=== PATIENT | female | born 1995 | race Caucasian/White ===

== ENCOUNTER 2018-03-29 15:38 | Emergency (ER) | payer MEDICAID, SELFPAY ==
[2018-03-29 15:38] VITALS: BP 129/72; PULSE 71; RESP 18; TEMP 36.7; O2SAT 96; BMI 41.5
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
--- NOTE | 2018-03-29 15:59 | ED.DCSUM_ITS ---
- ER Visit Summary Date of Service: 03/29/18 Chief Complaint: Right arm injury History of Present Illness: The patient is a 22 F presents to the emergency department with right arm injury. Patient was mowing her grass. She lost her balance and fell. She struck the dorsum of her arm against the sidewalk. She did not hit her head. She denies loss of consciousness. She denies any burning pain on the dorsum of her arm. She has not taken anything for it. Physical Examination: Is relatively unremarkable. Tenderness on the dorsum of her forearm. Her pulses are normal. Flexion and extension are preserved. Neurologically she is intact. Test Results: [] Emergency Department Course and Treatment: The patient symptoms were more consistent with sprain. There was no gross laxity. Her pulses are normal. I did obtain plain films which are unremarkable. The patient was offered Naprosyn which she refused. She states this will make me believe. I tried to explain her that this is more of a cumulative effect from chronic NSAID therapy. Offered Tylenol but she said that will not even work. The patient will be discharged and continue ice and elevation. Treatment Plan: [] Disposition: Discharge Impression: 1. Right forearm sprain This note was generated with [employer] dictation software. It may contain incorrect words, spelling, and punctuation that were not noted in review of the chart prior to signing ED Disposition - Plan for ED Patient: Disposition: Home or Assisted Living Chief Complaint: Upper Extremity Injury Instructions: ED Sprain Wrist Referrals: Wallace Kidd,Nay Bull [Primary Care Provider] -
== END 2018-03-29 16:23 | disposition home or self-care (01) ==
LOC: ED 16:05
PROVIDERS: Emergency Provider Emergency Medicine
DX: S56.911A Strain of unspecified muscles, fascia and tendons at forearm level, right arm, initial encounter (principal); W19.XXXA Unspecified fall, initial encounter; Y93.9 Activity, unspecified; Y92.9 Unspecified place or not applicable; F32.9 Major depressive disorder, single episode, unspecified; Z79.899 Other long term (current) drug therapy
CPT/HCPCS: 73090; 73130; 99282

== ENCOUNTER 2018-05-10 13:49 | Emergency (ER) | payer MEDICAID, SELFPAY ==
[2018-05-10 13:50] VITALS: BP 135/84; PULSE 96; RESP 18; TEMP 36.3; O2SAT 97; BMI 44.2
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
--- NOTE | 2018-05-10 14:20 | ED.DEP ---
ED Disposition - Plan for ED Patient: Chief Complaint: Other, Pain/Inj Instructions: ED Neck Pain No Trauma Prescriptions: Hydrocodone/Acetaminophen [Reynolds 5-325 Tablet] 1 - 2 ea PO 4X/DAY PRN PRN 3 Days #12 tab PRN Reason: Pain Naproxen [Naprosyn] 500 mg PO BID PRN #20 tab Cyclobenzaprine [Flexeril] 10 mg PO TID PRN #20 tab PRN Reason: Muscle Spasm Referrals: [facility] Bernabe,Nay Bull [Primary Care Provider] - Varun Rodas MD [STAFF PHYSICIAN] - 3-5 Days
--- NOTE | 2018-05-10 14:23 | DCINST.ED_ITS ---
ED Disposition - Plan for ED Patient: Chief Complaint: Other, Pain/Inj Instructions: ED Neck Pain No Trauma Prescriptions: Hydrocodone/Acetaminophen [[place] 5-325 Tablet] 1 - 2 ea PO 4X/DAY PRN PRN 3 Days #12 tab PRN Reason: Pain Naproxen [Naprosyn] 500 mg PO BID PRN #20 tab Cyclobenzaprine [Flexeril] 10 mg PO TID PRN #20 tab PRN Reason: Muscle Spasm Referrals: [facility] Bernabe,Nay Bull [Primary Care Provider] - Varun Rodas MD [STAFF PHYSICIAN] - 3-5 Days
== END 2018-05-10 14:33 | disposition home or self-care (01) ==
PROVIDERS: Emergency Provider Emergency Medicine
DX: M54.2 Cervicalgia (principal); G89.29 Other chronic pain; Z72.0 Tobacco use
CPT/HCPCS: 99282

== ENCOUNTER → 2018-05-18 12:03 | Outpatient (CLI) | payer MEDICAID, SELFPAY ==
--- NOTE | 2018-05-18 12:10 | RAD_ITS ---
STUDY: X-RAY - CERVICAL SPINE REASON FOR EXAM: Female, 23 years old. Pain. TECHNIQUE: 5 view(s) of the cervical spine were obtained. COMPARISON: None FINDINGS: Normal anterior atlantoaxial articulation. Normal odontoid process. Normal cervical lordosis. Normal vertebral bodies and endplates. Normal disc space heights. Normal visualized intervertebral neuroforamina. The soft tissue structures are unremarkable. There is no demonstrated fracture of the cervical spine. RAD/Cerv Spine 4 or 5 Views IMPRESSION: Normal x-ray examination of the visualized cervical spine. Electronically Signed: Nj Bernal MD at 15:58 EDT , Service support ,
== END ==
DX: M54.2 Cervicalgia (principal)
CPT/HCPCS: 72050

== ENCOUNTER 2018-07-27 23:03 | Emergency (ER) | payer MEDICAID, SELFPAY ==
[2018-07-27 23:04] VITALS: BP 134/70; PULSE 94; RESP 15; TEMP 37.1; O2SAT 97; BMI 41.6
--- NOTE | 2018-07-27 23:41 | ED.VISSUMM ---
- ER Visit Summary Date of Service: 07/27/18 Chief Complaint: [Cough and chest discomfort] History of Present Illness: The patient is a 23 F [presents with a cough that started 4 days ago. Patient also started with chest discomfort 2 days ago. She describes a sharp pain in her center of her chest intermittently. Patient states that pain at times worse with cough and at times with laying flat. Patient had fever at home up to 102. Cough is been relatively nonproductive. She complains of body aches and occasional headache. Patient has had some sick contacts with similar symptoms that have resolved quicker than hers are resolving.] Physical Examination: [HEENT-PERRLA, EOMI. Cranial nerves II through XII grossly intact. TMs clear. Mucous membranes moist. No adenopathy. Cardiovascular-regular rate and rhythm without murmur or ectopy Lungs-clear to auscultation, chest wall stable without crepitus or subcu emphysema. Mild chest wall tenderness on exam that partially reproduces her pain. Abdomen-normoactive bowel sounds, soft, nontender, no rebound or rigidity, no peritoneal signs. Extremities-intact ?4, normal range of motion, normal pulses, atraumatic] Test Results: None indicated [] Emergency Department Course and Treatment: [Patient was started on doxycycline and Tessalon Perles] Treatment Plan: [Follow-up with primary care physician 3-5 days.] Disposition: [Discharged home stable condition] Impression: [Bronchitis Chest wall pain] This note was generated with [employer] dictation software. It may contain incorrect words, spelling, and punctuation that were not noted in review of the chart prior to signing ED Disposition - Plan for ED Patient: Chief Complaint: Cough Referrals: Nay Roldan [Primary Care Provider] -
--- NOTE | 2018-07-27 23:43 | ED.DEP ---
ED Disposition - Plan for ED Patient: Chief Complaint: Cough Instructions: ED Upper Resp Infec Abx Tx, ED Chest Pain Costochondritis Prescriptions: Benzonatate [Tessalon Perle] 200 mg PO TID PRN PRN #20 cap PRN Reason: Cough Doxycycline Monohydrate 100 mg PO BID #20 cap Referrals: [facility] Bernabe,Nay Bull [Primary Care Provider] - 3-5 Days
[2018-07-27] MEDS: Benzonatate 100 MG Capsule 200 MG PO (23:53)
[2018-07-27] MEDS: Doxycycline 100 MG CAPSULE PO (23:53)
[2018-07-27 23:57] VITALS: PULSE 85; RESP 14; O2SAT 97; O2SAT 98
--- NOTE | 2018-07-28 10:44 | CM.ED ---
ED CALLBACK: Follow-up call placed to patient. Patient states she feels about the same as yesterday. She denies worsening symptoms. Patient states she had a temp of 100.0 around 0300 today. She states she has not filled her prescription yet, but is having her boyfriend fill it today. I encouraged patient to start antibiotic as soon as possible and that this can take a few days to see improvement. Encouraged patient to schedule an appointment with Nay Kidd for follow-up. Offered assistance and patient declines. She denies any needs or questions at this time.
== END 2018-07-28 00:08 | disposition home or self-care (01) ==
LOC: ED 07-28 00:04
PROVIDERS: Emergency Provider Emergency Medicine
DX: J40 Bronchitis, not specified as acute or chronic (principal); R07.89 Other chest pain; Z72.0 Tobacco use
CPT/HCPCS: 99283

== ENCOUNTER 2018-08-19 15:30 | Outpatient (RCR) | payer MEDICAID, SELFPAY ==
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
--- NOTE | 2018-11-24 08:42 | HP.PTDCSUM ---
HP - PT D/C Summary It has been my pleasure to treat CARLOS DOMINGUEZ under orders from ERICA aDigle, for the diagnosis of CERVICAL PAIN for a total of 7 visit(s). Discharge Date: Please see the following information for a summary of their discharge status. - Subjective Subjective: Pain is about the same. Plan to RTD - Pain Bilateral Neck Pain Intensity (Out of 10): 4 - Overall Improvement % Improvement: 50 - Objective Objective/Function: Sajan txwell. AROM : min loss all planes. PALPATION:tenderness tightness left UT/levator. MMT: BUE 4/5 ,4-/5 - Goals Goal 1:: Independant with HEP Goal 2:: Independant with posture for ADL'S Goal 3:: Decrease cervical pain by 50% or greater to improve function Goal 4:: Patient improve cervical ROM for functrion of recovery Goal 5:: Patient be able to perform ADLS with min limiations - Plan Plan: RTD - D/C Information If there are questions or concerns regarding this patient's physical therapy, please feel free to call me at [phone]. Thank you for the referral of this patient. Sincerely, Magnus Zhou, PT, Cert MDT, OCS
== END 2018-08-19 19:00 | disposition home or self-care (01) ==
LOC: PT 15:30
PROVIDERS: Referring Provider Nurse Practitioner Family; Visit Provider Nurse Practitioner Family
DX: M54.2 Cervicalgia (principal)
CPT/HCPCS: 97035; 97110; 97140; 97161

== ENCOUNTER 2018-09-10 10:50 | Emergency (ER) | payer MEDICAID, SELFPAY ==
[2018-09-10 10:51] VITALS: BP 132/78; PULSE 88; RESP 16; TEMP 36.5; O2SAT 97; BMI 42.9
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
--- NOTE | 2018-09-10 11:20 | ED.RN ---
DISCHARGE INSTRUCTIONS GIVEN TO AND REVIEWED WITH PATIENT, PATIENT DENIES QUESTIONS OR CONCERNS AND VOICES UNDERSTANDING OF DISCHARGE INSTRUCTIONS. PT AMBULATES OUT OF ROOM WITHOUT DIFFICULTY.
--- OUTSIDE RECORDS SUMMARY | 2018-11-05 09:11 | XMS RPT_ITS ---
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 Impression: [] URI with harsh cough This note was generated with KartRocket dictation software. It may contain incorrect words, spelling, and punctuation that were not noted in review of the chart prior to signing ED Disposition - Plan for ED Patient: Chief Complaint: Chest Pain Referrals: Roverto Diane MD [Primary Care Provider] - What to do if you have Problems For any increased pain, shortness of breath, bleeding, nausea or vomiting, chest pain, or any unexpected problems, contact your Primary Care Provider. Call [facility] ([phone]) or report to the closest Emergency Room. Call 911 if necessary. 10/18/17 3231 <Electronically signed by Davian Connolly MD> Date Davian Connolly MD Cosigner Signature (If Indicated): Date CC: Roverto Diane MD DISCHARGE INSTRUCTION Observed: 10/18/2017 Status: F Source: LEYDA 11:47 AM [facility] REPOSITORY [facility] Medical Records Department [address] [place] [address] Discharge Instruction 10/18/17 1146 MR#: [id number] Acct: [id number] Name: CARLOS ALSTON Rep #: [id number] : 1995 22 From: Davian Connolly MD PCP: Roverto Diane MD Status: REG ER ED Disposition - Plan for ED Patient: Chief Complaint: Chest Pain Instructions: ED Upper Resp Infec No Abx Tx Prescriptions: Albuterol Inhaler [Ventolin Hfa] 1 - 2 puff INHALATION Q4H PRN PRN #1 inhaler PRN Reason: Wheezing Naproxen [Naprosyn] 500 mg PO BID PRN #20 tab Guaifenesin/Pseudoephedrne HCl [Mucinex D ER 1,200-120 mg Tab] 1 ea PO BID #20 tab.er.12h Referrals: Roverto Diane MD [Primary Care Provider] - What to do if you have Problems For any increased pain, shortness of breath, bleeding, nausea or vomiting, chest pain, or any unexpected problems, contact your Primary Care Provider. Call [facility] ([phone]) or report to the closest Emergency Room. Call 911 if necessary. 10/18/17 1147 <Electronically signed by Davian Connolly MD> Date Davian Connolly MD Cosigner Signature (If Indicated): Date CC: Roverto Diane MD DISCHARGE INSTRUCTION Observed: 10/18/2017 Status: F Source: LEYDA 11:19 AM [facility] REPOSITORY [facility] Medical Records Department [address] [place] [address] Discharge Instruction 10/18/17 1116 MR#: [id number] Acct: [id number] Name: CARLOS ALSTON Rep #: [id number] : 1995 22 From: Davian Connolly MD PCP: Roverto Diane MD Status: REG ER ED Disposition - Plan for ED Patient: Chief Complaint: Chest Pain Instructions: ED Upper Resp Infec No Abx Tx Prescriptions: Albuterol Inhaler [Ventolin Hfa] 1 - 2 puff INHALATION Q4H PRN PRN #1 inhaler PRN Reason: Wheezing Naproxen [Naprosyn] 500 mg PO BID PRN #20 tab Guaifenesin/Pseudoephedrne HCl [Mucinex D ER 1,200-120 mg Tab] 1 ea PO BID #20 tab.er.12h Referrals: Roverto Diane MD [Primary Care Provider] - What to do if you have Problems For any increased pain, shortness of breath, bleeding, nausea or vomiting, chest pain, or any unexpected problems, contact your Primary Care Provider. Call [facility] ([phone]) or report to the closest Emergency Room. Call 911 if necessary. 10/18/17 1119 <Electronically signed by Davian Connolly MD> Date Davian Connolly MD Cosigner Signature (If Indicated): Date CC: Roverto Diane MD PROGRESS Observed: 10/18/2017 Status: COMPLETED Source: SHENANDO[place] 10:36 AM [facility] [place] REPOSITORY O ID: [id number] Author: Lance Santos Service: (none) Author Type: Nurse Practitioner Type: Progress Notes Filed: 10/18/2017 10:41 AM Note Text: Patient is a 22 year old female presenting with flu symptoms. The history is provided by the patient (dry cough for the last 4 days, but yesterday developed midsternal non-radiating chest pain ). Flu Like Symptoms This is a new problem. Associated symptoms include chest pain, congestion and coughing. Pertinent negatives include no fever. She has tried nothing for the symptoms. Review of Systems Constitutional: Negative for fever. HENT: Positive for congestion. Respiratory: Positive for cough. Negative for sputum production. Cardiovascular: Positive for chest pain and palpitations. Physical Exam Constitutional: She is oriented to person, place, and time and well-developed, well-nourished, and in no distress. Vital signs are normal. BP 100/70 Pulse 107 Temp 37.8 ?C (100.1 ?F) (Tympanic) Resp 20 Wt 108 kg (238 lb) LMP 08/10/2017 SpO2 96% BMI 42.16 kg/m2 Cardiovascular: Normal heart sounds. Pulmonary/Chest: Breath sounds normal. Neurological: She is oriented to person, place, and time. pt was advised to go to the ed for cardiac workup that can not be completed in this setting , family member that is With the pt at this time states that he will drive her. REED Observed: 10/18/2017 Status: COMPLETED Source: SHENANDOAH 10:15 AM [facility] REPOSITORY Office Visit (WSTR) CARLOS ALSTON ([id number]) 1995 F Date Time Provider Department 10/18/17 10:15 AM [facility] During your visit today, we recorded the following information about you: Temperature Pulse Respiration Blood pressure 100.1 degrees 107/minute 20/minute 100/70 Weight Last Period 108 kg 08/10/17 Lance Santos CNP 10/18/2017 10:41 AM Signed Patient is a 22 year old female presenting with flu symptoms. The history is provided by the patient (dry cough for the last 4 days, but yesterday developed midsternal non-radiating chest pain ). Flu Like Symptoms This is a new problem. Associated symptoms include chest pain, congestion and coughing. Pertinent negatives include no fever. She has tried nothing for the symptoms. Review of Systems Constitutional: Negative for fever. HENT: Positive for congestion. Respiratory: Positive for cough. Negative for sputum production. Cardiovascular: Positive for chest pain and palpitations. Physical Exam Constitutional: She is oriented to person, place, and time and well-developed, well-nourished, and in no distress. Vital signs are normal. BP 100/70 Pulse 107 Temp 37.8 ?C (100.1 ?F) (Tympanic) Resp 20 Wt 108 kg (238 lb) LMP 08/10/2017 SpO2 96% BMI 42.16 kg/m2 Cardiovascular: Normal heart sounds. Pulmonary/Chest: Breath sounds normal. Neurological: She is oriented to person, place, and time. pt was advised to go to the ed for cardiac workup that can not be completed in this setting , family member that is With the pt at this time states that he will drive her. Referring Provider: SELF [200] Allergies As of Date: 10/18/2017 Noted Allergy Reaction MORPHINE 03/23/2017 14 - Other: See Comments Comments: Tightness in chest TREE NUT 10/26/2015 12 - Shortness of Breath Date Reviewed: 10/18/2017 Reviewed by: Ragini Boyce LPN - Fully Assessed Reason for Visit: Flu Like Symptoms [267] Cmt: cough/congestion/vomiting X 2 day Primary Visit Diagnosis:Other chest pain [R07.89] Other Visit Diagnosis:Cough [R05] Prescriptions as of 10/18/2017 Sig: DICYCLOMINE 10 MG CAPSULE OMEPRAZOLE MAGNESIUM 20 MG TA* Take 1 tablet by mouth once d* CETIRIZINE 10 MG TABLET Take 1 tablet by mouth once d* FLUTICASONE 50 MCG/ACTUATION * Use 2 Sprays in each nostril * ALBUTEROL SULFATE HFA 90 MCG/* Inhale 2 Puffs as instructed * NYSTATIN 100,000 UNIT/GRAM TO* Apply 1 application to affect* SERTRALINE 50 MG TABLET Medication notes this encounter OMEPRAZOLE MAGNESIUM 20 MG TABLET,DELAYED RELEASE >> Ragini Boyce LPN 10/18/2017 10:23 AM >> RAGINI BOYCE LPN Oct 18, 2017 10:23 AM Not taking CETIRIZINE 10 MG TABLET >> Ragini Boyce LPN 10/18/2017 10:23 AM >> RAGINI BOYCE LPN Oct 18, 2017 10:23 AM Not taking FLUTICASONE 50 MCG/ACTUATION NASAL SPRAY,SUSPENSION >> Ragini Boyce LPN 10/18/2017 10:23 AM >> RAGINI BOYCE LPN Oct 18, 2017 10:23 AM Not taking ALBUTEROL SULFATE HFA 90 MCG/ACTUATION AEROSOL INHALER >> Ragini Boyce LPN 10/18/2017 10:23 AM >> RAGINI BOYCE LPN Oct 18, 2017 10:23 AM Not taking Problem List As Of Date: 10/18/2017 (None) Encounter Status:Closed by LANCE SANTOS CNP on 10/18/17 EMERGENCY DEPARTMENT Observed: 10/05/2017 Status: F Source: THAYER SUMMARY 11:46 PM [facility] REPOSITORY [facility] Medical Records Department [address] [place] [address] Emergency Department Summary 10/05/17 1701 MR#: [id number] Acct: [id number] Name: CARLOS ALSTON Rep #: [id number] : 1995 22 From: Roverto Marie MD PCP: Roverto Diane MD Status: DEP ER - ER Visit Summary Date of Service: 10/05/17 Chief Complaint: Slipped and fell on ice complaining of left forearm discomfort History of Present Illness: The patient is a 22 F hand dominant. No senior past medical history. Currently on Ultram for dry socket. States she slipped and fell on her driveway today that was E landed awkwardly on her left forearm and complaining of pain. No prior history no prior surgery left forearm. She denies other injuries. She did not hit her head. She denies any LOC. Physical Examination: Well-appearing young female. Vital signs are stable afebrile. HEENT exam atraumatic. Pupils round reactive light. No signs of trauma to her scalp or face. Nontender. No hematomas. C-spine, T-spine, LS-spine and back are completely nontender. Full range of motion her neck. Trachea midline. Lungs clear to auscultation bilaterally. Heart regular rate and rhythm no murmur. Chest wall nontender. Abdomen soft nontender. Pelvic girdle intact. Both lower extremities are nontender with normal range of motion to the hips, knees and ankles. Dorsi plantar flexion intact. Right upper extremity is nontender normal range of motion. Left upper extremity she has tenderness to the mid to distal left forearm. She has decreased flexion extension left wrist. The left shoulder, humerus and elbow are nontender neurovascular intact. The left hand is neurovascular intact with normal touch sensation and cap refill. Neurologically she is awake and alert without focal deficits. Test Results: Left forearm x-ray 2 views no acute fracture seen. Read by myself. Emergency Department Course and Treatment: Patient was offered something for pain which she deferred at this time. Treatment Plan: Charge at home treat for left forearm contusion left wrist sprain. Disposition: Discharge Impression: Slipped and fell on the ice Acute left forearm contusion and left wrist sprain. This note was generated with KartRocket dictation software. It may contain incorrect words, spelling, and punctuation that were not noted in review of the chart prior to signing ED Disposition - Plan for ED Patient: Chief Complaint: Upper Extremity Injury Referrals: Roverto Diane MD [Primary Care Provider] - What to do if you have Problems For any increased pain, shortness of breath, bleeding, nausea or vomiting, chest pain, or any unexpected problems, contact your Primary Care Provider. Call [facility] ([phone]) or report to the closest Emergency Room. Call 911 if necessary. 10/05/17 2346 <Electronically signed by Roverto Marie MD> Date Roverto Marie MD Cosigner Signature (If Indicated): Date CC: Roverto Diane MD DISCHARGE INSTRUCTION Observed: 10/05/2017 Status: F Source: LEYDA 11:46 PM [facility] REPOSITORY [facility] Medical Records Department [address] [place] [address] Discharge Instruction 10/05/17 1732 MR#: [id number] Acct: [id number] Name: CARLOS ALSTON Rep #: [id number] : 1995 22 From: Roverto Marie MD PCP: Roverto Diane MD Status: DEP ER ED Disposition - Plan for ED Patient: Disposition: Home or Assisted Living Chief Complaint: Upper Extremity Injury Instructions: ED Sprain Wrist Referrals: Roverto Diane MD [Primary Care Provider] - 1 Week if not improving Additional Instructions: Ice to left wrist and forearm. Motrin for pain and inflammation. You have a sprained left wrist and bruised left forearm. This should progressively get better. If not significantly improving in the next week this should be reevaluated. Your x-rays showed no broken bones today. What to do if you have Problems For any increased pain, shortness of breath, bleeding, nausea or vomiting, chest pain, or any unexpected problems, contact your Primary Care Provider. Call [facility] ([phone]) or report to the closest Emergency Room. Call 911 if necessary. 10/05/17 2346 <Electronically signed by Roverto Marie MD> Date Roverto Marie MD Cosigner Signature (If Indicated): Date CC: Roverto Diane MD FOREARM 2 VIEWS Observed: 10/05/2017 Status: F Source: THAYER 4:59 PM [facility] REPOSITORY [facility] Imaging Services [address] [place] [address] Forearm 2 Views MR#: [id number] Acct: [id number] Name: CARLOS ALSTON Rep #: [id number] : 1995 F 22 From: Aaron Ballard MD PCP: Roverto Diane MD Status: [facility] ER Study: Forearm 2 Views Date of Exam: 10/05/17 Exam# [id number] Ordering Dr: Roverto Marie MD STUDY: X-RAY - LEFT RADIUS AND ULNA REASON FOR EXAM: Female, 22 years old. Left arm pain after a fall. TECHNIQUE: 2 view(s) of the forearm. COMPARISON: None. FINDINGS: There is no demonstrated soft tissue swelling. Normal visualized radius. Normal visualized ulna. There is no demonstrated acute fracture. RAD/Forearm 2 Views IMPRESSION: Normal x-ray examination of the left radius and ulna. Electronically Signed: Roque Ballard MD at 17:39 EST , Service support , CC: Roverto Diane MD; Roverto Marie MD Finance Effectiveness Manager: Signed ALLERGIES ALLERGIES DATE TYPE / CODE NAME / CODE REACTION SEVERITY SOURCE 07/27/2018 Drug peanut/[id number] Swelling Unknown [facility]/416 68([facility]NORM) [facility] 082566(SNOM Repository ED CT) 07/27/2018 Drug morphine/Q90710 Chest tightness Unknown [facility]/416 1545(RXNORM) Hospital 542978(SNOM Repository ED CT) 07/27/2018 Drug mold/[id number] Other Unknown [facility]/416 (RXNORM) [facility] 911670(SNOM Repository ED CT) 03/23/2017 DRUG MORPHINE OTHER: SEE C [address] 752564(SNOM Repository ED CT) 10/26/2015 DRUG TREE NUT SHORTNESS OF [address] 368392(SNOM Repository ED CT) Drug MORPHINE/217040 Moderate [place] [place] Allergy/416 18(RXNORM) ([facility] 264827(SNOM Modifier) Repository ED CT) (Qualifier Value) Food PEANUTS Moderate Biju [place] Allergy/414 ([facility] 715316(SNOM Modifier) Repository ED CT) (Qualifier Value) ENCOUNTERS ENCOUNTERS ADMIT/DISCHARGE ACCOUNT ADMITTING ENCOUNTER LOCATION SOURCE NUMBER CLASS 09/10/2018/09/10/[id number] ENOCH [facility]INA [facility] oom: ERBed: [facility] Repository 09/10/2018/09/10/20 [id number] Emergency [address] ing:ED Repository 08/19/2018 [id number] Ambulatory [facility] ing:PT Repository 07/27/2018/07/28/20 [id number] Emergency [address] ing:ED Repository 05/18/2018 [id number] Ambulatory [facility] ing:RAD Repository 05/10/2018/05/10/20 [id number] Emergency [address] ing:ED Repository 03/29/2018/03/29/20 [id number] Emergency [address] ing:ED Repository 12/11/2017/12/15/19 [id number] Ambulatory [address] Repository 10/18/2017/10/18/19 [id number] Emergency [address] ing:ED Repository 10/18/[id number] [facility] Repository 10/05/2017/10/05/20 [id number] Emergency [address] ing:ED Repository PAYERS PAYERS ENCOUNTER GUARANTOR PAYER SUBSCRIBER SOURCE 09/10/2018 CARLOS OAKESB: Insurance:SYED CARPENTER: [facility] N [facility]LY [facility] PLAN [id number] [facility] [place] [place] Number: [place], [place] [address]Eut: [phone] [id number] [phone] (HP) Date:Plan Name: 09/10/2018 CARLOS [place] [id number] N Insurance:SYED CARPENTER: [facility] [id number] [place] PLANPolicy Number: Repository [id number]: ([phone] [id number] [phone] (HP) Date:0992-88-79CK [address] [place] [address]26[address]SM: 09/10/2018 Secondary NOT GIVENUNK [place] Insurance:SELF PAY [facility] Number: Effective Repository Date:2018-09-10 08/19/2018 CARLOS N Primary CARLOS N [place] [id number] N Insurance:BUCKEYE ZIELINSKIDOB: [facility] [id number] General HospitalPolmercy[facility] Number: Repository [id number]: 330 [id number] [phone] (HP) Date:6456-90-71XI [address] [place] [address] 81192OB: 08/19/2018 Secondary NOT GIVENUNK [place] Insurance:SELF PAY [facility] Number: Effective Repository Date:2018-07-12 07/27/2018 CARLOS N Primary CARLOS N [place] [id number] N Insurance:BUCKEYE ZIELINSKIDOB: [facility] [id number] General HospitalPolic Number: Repository [id number]: 330 [id number] [phone] (HP) Date:3139-73-83LR [address] [place] [address] 501[address]HY: 07/27/2018 Secondary NOT GIVENUNK [place] Insurance:SELF PAY [facility] Number: Effective Repository Date:2018-07-27 05/18/2018 CARLOS N Primary CARLOS N [place] [id number] N Insurance:BUCKEYE ZIELINSKIDOB: [facility] [id number] Ridge Health Number: Repository [address]Wub: 330 [id number] [phone] (HP) Date:4677-72-15DW [address] [place] [address]IN: 05/18/2018 Secondary NOT GIVENUNK [place] Insurance:SELF PAY [facility] Number: Effective Repository Date:2018-05-18 05/10/2018 CARLOS N Primary CARLOS N [place] [id number] N Insurance:BUCKEYE ZIELINSKIDOB: [facility] [id number] [place] PLANPolicy Number: Repository [address]Otg: 330 [id number] [phone] (HP) Date:4400-62-97KE [address] [place] [address]RV: 05/10/2018 Secondary NOT GIVENUNK [place] Insurance:SELF PAY [facility] Number: Effective Repository Date:2018-05-10 03/29/2018 CARLOS N Primary CARLOS N [place] [id number] N Insurance:BUCKEYE ZIELINSKIDOB: [facility] [id number] [place] PLANPolicy Number: Repository [id number]: 330 [id number] [phone] (HP) Date:9378-88-39VA [address] [address]ES: 03/29/2018 Secondary NOT GIVENUNK [place] Insurance:SELF PAY [facility] Number: Effective Repository Date:2018-03-29 10/18/2017 Carlos Primary Carlos [place] [id number] N Insurance:BUCKEYE ZielinskiDOB: [facility] [id number] General HospitalPolicy Number: Repository [id number]: 330 [id number] [phone] (HP) Date:5417-09-26VW B[address] CharlesCHARR[facility]ERN[facility] HOSPITALDAGOBERTO FERRELL [address]NK: 10/18/2017 Secondary NOT GIVENUNK [place] Insurance:SELF PAY [facility] Number: Effective Repository Date:2017-10-18 10/05/2017 Carlos Primary Carlos [place] [id number] N Insurance:BUCKEYE ZielinskiDOB: [facility] [id number] General HospitalPolicy Number: Repository [id number]: 330 [id number] [phone] (HP) Date:5859-19-48NB [address] [facility] - BOSTONDAGOBERTO FERRELL [address]JY: 10/05/2017 Secondary NOT GIVENUNK [place] Insurance:SELF PAY [facility] [address] Number: Effective Repository Date:2017-10-05
== END 2018-09-10 11:20 | disposition home or self-care (01) ==
PROVIDERS: Emergency Provider Emergency Medicine
DX: L08.82 Omphalitis not of newborn (principal); R11.0 Nausea; E66.9 Obesity, unspecified; Z68.41 Body mass index [BMI] 40.0-44.9, adult; Z72.0 Tobacco use
CPT/HCPCS: 99282

== ENCOUNTER 2018-10-22 11:11 | Emergency (ER) | payer MEDICAID, SELFPAY ==
[2018-10-22 11:12] VITALS: BP 156/90; PULSE 105; RESP 18; TEMP 36.6; O2SAT 98; BMI 41.5
[2018-10-22 11:17] VITALS: O2SAT 98
--- NOTE | 2018-10-22 11:24 | EKG12_ITS ---
Test Reason : SOB Blood Pressure : / mmHG Vent. Rate : 097 BPM Atrial Rate : 097 BPM P-R Int : 150 ms QRS Dur : 082 ms QT Int : 344 ms P-R-T Axes : 049 012 -01 degrees QTc Int : 436 ms Normal sinus rhythm Normal ECG Confirmed by LENARD MILLER MD ([id number]), scientific publications editor ANA OTOOLE ([id number] on 10/26/2018 4:59:52 PM Referred By: JESUS Confirmed By:LENARD MILLER MD
--- NOTE | 2018-10-22 11:27 | ED.DCSUM_ITS ---
- ER Visit Summary Date of Service: 10/22/18 Chief Complaint: Dyspnea History of Present Illness: The patient is a 23 F worsening dyspnea since yesterday. Pain with deep breath in the chest substernal. No cough. No fevers. Complains of chills and sweats. No urinary symptoms. No wheezing. States quit smoking 5 months ago. No recent travel, surgeries, or immobilizations. No history of PE or DVT. Denies asthma history. Denies previous similar symptoms in the past. States one loose stool today. No nausea or vomiting. Physical Examination: General: Alert and oriented ?3, no acute distress HEENT: Normocephalic, atraumatic. Moist mucosa membranes Neck: supple, nontender. Cardiovascular: Regular tachycardic rate 105 and rhythm, no murmurs. Reproducible right upper costal tenderness. Respiratory: Normal breath sounds, symmetric, no distress Abdomen: Soft, nontender, nondistended Extremities: Nontender, no edema, pulses intact ?4 Neuro: no focal neurological deficits. Test Results: EKG sinus rhythm [address] or T wave changes. White count 14.16 with 13.9. Creatinine 0.60. HCG negative. D-dimer 0.35. Chest x-ray negative. Emergency Department Course and Treatment: Patient right-sided reproducible tenderness. EKG was sinus rhythm. Reports pain with deep breath, low risk Wells criteria for PE with initial tachycardia in triage. D-dimer obtained negative. Labs stable slight white count 14.6. Chest x-ray obtained negative. She has no urinary symptoms. Heart rate improved with monitoring. Reevaluation discuss musculoskeletal in nature. She did not want IV NSAIDs states she has oral medicines at home. Discussed atypical symptoms. Patient will follow-up as an outpatient. Treatment Plan: [] Disposition: Discharge Impression: 1. Costochondritis 2. Dyspnea This note was generated with [employer] dictation software. It may contain incorrect words, spelling, and punctuation that were not noted in review of the chart prior to signing ED Disposition - Plan for ED Patient: Disposition: Home or Assisted Living Chief Complaint: Shortness of Breath Diagnosis: Costochondritis, Dyspnea Instructions: ED Chest Pain Costochondritis Referrals: Nay Roldan [Primary Care Provider] - 3-5 Days
[2018-10-22] MEDS: 0.9% Normal Saline 1,000 ML 1000 ML IV (11:52)
[2018-10-22 12:07] LABS: Absolute Lymphocyte Count 1.77 X10^3/ul (0.83-4.51); Absolute Neutrophil Count 11.6 X10^3/uL (2.0-7.7); Basophil# 0.02 X10^3/uL; Basophil% 0.1 % (0-1); Eosinophil# 0.01 X10^3/uL; Eosinophils% 0.1 % (0-5); Hemoglobin 13.9 g/dl (12.0-15.0); Lymphocyte # 1.77 X10^3/ul (4.0); Lymphocyte % 12.1 % (19-41); Mean Corp Hgb Conc 33.1 g/gl (32-36); Mean Corpuscular Hgb 29.5 pg (27.0-32.0); Mean Corpuscular Volume 89.2 fL (81-99); Mean Platelet Vol. 8.6 fl (6.2-12.0); Monocyte% 8.2 % (0-10); Neutrophil # 11.58 X10^3/uL (2.7-7.7); Neutrophil % 79.3 % (47-70); POSITIVE COUNT NO; POSITIVE DIFFERENTIAL NO; POSITIVE MORPHOLOGY NO; Platelet Count 218 K/mm3 (150-450); RBC Distribution Width CV 12.9 % (11.6-14.6); RBC Distribution Width SD 41.9 fl (35.1-43.9); Red Blood Count 4.71 M/mm3 (4.2-5.4); White Blood Count 14.6 K/mm3 (4.4-11.0)
[2018-10-22 12:17] LABS: Anion Gap 9 (5-15); BUN 5 mg/dL (7-18); BUN/Creat Ratio 8.3 RATIO (10-20); Calcium,Total 8.8 mg/dL (8.5-10.1); Chloride 104 mmol/L (98-107); EST Glomerular Filtration Rate 131 mL/min (>60); Est Glom Filt Rate - Afr Amer 159 mL/min (>60); Estimated Creatinine Clearance 131.22 ml/min; Glucose 94 mg/dL (74-106); Potassium 3.3 mmol/L (3.5-5.1); Sodium Level 141 mmol/L (136-145)
[2018-10-22 12:23] LABS: D-Dimer Quantitative (DVT/PE) 0.35 FEU/ug/m (0.27-0.49)
[2018-10-22 12:40] LABS: Pregnancy, Serum, hCG Quali. NEGATIVE Negative (0-9 Nonpreg)
--- NOTE | 2018-10-22 13:05 | RAD_ITS ---
STUDY: X-RAY CHEST REASON FOR EXAM: Female, 23 years old. Shortness of breath with cough. TECHNIQUE: Frontal and lateral views of the chest. COMPARISON: October 18, 2016 FINDINGS: The lungs are clear and expanded. There is no demonstrated pleural abnormality. Normal size heart. Normal mediastinum and guerrero. Normal visualized pulmonary arteries. Normal visualized aortic arch and descending thoracic aorta. Normal visualized thoracic spine. Normal visualized ribs, clavicles, and shoulders. There is no demonstrated abnormality of the visualized soft tissue structures of the upper abdomen. RAD/Chest PA and Lateral IMPRESSION: No interval change and no acute pathology. Electronically Signed: Ellis Garza MD at 13:15 EST , Service support ,
[2018-10-22 13:11] VITALS: BP 156/89; PULSE 88; O2SAT 100
[2018-10-22 13:41] VITALS: BP 147/83; PULSE 109; RESP 19; O2SAT 98
[2018-10-22 14:15] VITALS: BP 147/83; O2SAT 97
== END 2018-10-22 14:15 | disposition home or self-care (01) ==
PROVIDERS: Emergency Provider Emergency Medicine
DX: M94.0 Chondrocostal junction syndrome [Tietze] (principal); R06.00 Dyspnea, unspecified; Z87.891 Personal history of nicotine dependence
CPT/HCPCS: 71046; 80048; 84703; 85025; 85379; 93005; 96360; 96361; 99283; J7030

== ENCOUNTER 2019-03-03 21:18 | Emergency (ER) | payer MEDICAID, SELFPAY ==
[2019-03-03 21:20] VITALS: BP 128/75; PULSE 76; RESP 18; TEMP 36.4; O2SAT 97; BMI 41.3
--- NOTE | 2019-03-03 21:46 | ED.DCSUM_ITS ---
- ER Visit Summary Date of Service: 03/03/19 Chief Complaint: Diarrhea History of Present Illness: The patient is a 23 F who presents with diarrhea. She has had 2 episodes of mucousy stools today. She came in because she is concerned about the mucus. Denies any blood. She had some abdominal gurgling but no pain. She took nothing for it. Denies fevers. She just finished Flagyl for BV Physical Examination: Vital signs reviewed. HEENT exam unremarkable. Heart is regular rate and rhythm without murmurs. Lungs are clear to auscultation. Abdomen is soft and nontender. Extremities reveal no edema. Skin exam normal. Neurologic exam normal. Test Results: Stool culture pending Emergency Department Course and Treatment: Patient has no symptoms currently. I will give her a prescription for a stool culture. She will take Imodium as needed. She will also take a probiotic. She will call her doctor for follow-up Treatment Plan: [] Disposition: Discharge Impression: Diarrhea This note was generated with [employer] dictation software. It may contain incorrect words, spelling, and punctuation that were not noted in review of the chart prior to signing ED Disposition - Plan for ED Patient: Referrals: Care Physician,No Primary [Primary Care Provider] -
--- NOTE | 2019-03-03 21:46 | ED.DEP ---
ED Disposition - Plan for ED Patient: Disposition: Home or Assisted Living Instructions: ED Diarrhea Viral Referrals: Care Physician,No Primary [Primary Care Provider] -
[2019-03-03 22:08] VITALS: BP 122/60; PULSE 70; RESP 18; O2SAT 97
== END 2019-03-03 22:09 | disposition home or self-care (01) ==
PROVIDERS: Emergency Provider Emergency Medicine
DX: R19.7 Diarrhea, unspecified (principal)
CPT/HCPCS: 99282

== ENCOUNTER 2019-07-03 22:59 | Emergency (ER) | payer MEDICAID, SELFPAY ==
[2019-07-03 23:00] VITALS: BP 129/71; PULSE 78; RESP 16; TEMP 36.6; O2SAT 98; BMI 42.3
--- NOTE | 2019-07-03 23:47 | ED.VIS.GEN ---
History of Present Illness Chief Complaint: Cough Narrative: Patient is a 24-year-old female who presents with chief complaint of I have pneumonia or bronchitis. She is been sick for about 10 days with an upper respiratory illness. She complains of congestion runny nose and mild cough. Symptoms are actually improving however she also complains of chest pain. No fever. No vomiting. She is not short of breath. She has had some mild diarrhea. Past Medical History - Allergies and Home Meds Allergies/Adverse Reactions: Allergies peanut Allergy (Verified 07/03/19 23:02) Swelling mold Adverse Reaction (Verified 07/03/19 23:02) Other morphine Adverse Reaction (Verified 07/03/19 23:02) Chest tightness Primary Care Physician: Alfredo Barroso MD [Primary Care Provider] - Prior records reviewed: Yes Past Medical History: None Smoking Status: Former smoker Review of Systems All systems negative except as indicated General: Denies: Fever ENT: Reports: Rhinorrhea, Sore throat, - - Congestion Cardiovascular: Reports: Chest pain Respiratory: Reports: Cough Gastrointestinal: Reports: Diarrhea. Denies: Vomiting Physical Exam Vital Signs/Narrative: Vital Signs Temp Pulse Resp BP Pulse Ox 07/03/19 23:00 97.8 F 78 16 129/71 H 98 Inital Vital Signs reviewed: Yes General: Well nourished, Well developed Head: Normocephalic, Atraumatic Eyes: Perrl ENT: Moist mucous membranes Neck: Supple Cardiovascular: Regular rate, Regular rhythm Respiratory: No distress, CTA bilaterally Skin: Normal color Neurological: Alert Psychological: Normal affect Diagnostic/Tx/Re-eval Impressions Chest X-Ray 07/03/19 23:55 07/03/19 23:55 CXR [Chest PA and Lateral] [RAD] Stat - Medical Decision Making Chest x-ray is normal. Patient's presentation is most consistent with bronchitis. She was advised on supportive care and was discharged home. ED Disposition - Plan for ED Patient: Disposition: Home or Assisted Living Diagnosis: Bronchitis Instructions: BRONCHITIS, No Antibiotic (Adult) Referrals: Alfredo Barroso MD [Primary Care Provider] -
--- NOTE | 2019-07-03 23:55 | RAD_ITS ---
STUDY: X-RAY CHEST REASON FOR EXAM: Female, 24 years old. Intermittent cough TECHNIQUE: 2 views of the chest were obtained COMPARISON: 10/22/2018 FINDINGS: No consolidative process, pleural effusion or pneumothorax. Cardiac size within normal limits. Osseous structures demonstrate no acute abnormalities. IMPRESSION: No acute cardiopulmonary pathology seen. Electronically Signed: Joshua Butler, at 0:17 EDT Tel , Service support , RAD/Chest PA and Lateral
[2019-07-04 00:25] VITALS: PULSE 101; RESP 15; O2SAT 98
== END 2019-07-04 00:34 | disposition home or self-care (01) ==
PROVIDERS: Emergency Provider Emergency Medicine; Family Provider Family Medicine; PCP Family Medicine
DX: J40 Bronchitis, not specified as acute or chronic (principal); R19.7 Diarrhea, unspecified; Z87.891 Personal history of nicotine dependence
CPT/HCPCS: 71046; 99282

== ENCOUNTER 2019-08-04 17:01 | Emergency (ER) | payer MEDICAID, SELFPAY ==
[2019-08-04 17:02] VITALS: BP 122/65; PULSE 87; RESP 18; TEMP 36.8; O2SAT 99; BMI 41.5
[2019-08-04 18:23] LABS: Anion Gap 6 (5-15); BUN 7 mg/dL (7-18); BUN/Creat Ratio 12.3 RATIO (10-20); Calcium,Total 9.2 mg/dL (8.5-10.1); Chloride 104 mmol/L (98-107); Creatinine, Serum 0.57 mg/dL (0.55-1.02); EST Glomerular Filtration Rate 139 mL/min (>60); Est Glom Filt Rate - Afr Amer 168 mL/min (>60); Estimated Creatinine Clearance 136.94 ml/min; Glucose 83 mg/dL (74-106); Potassium 3.8 mmol/L (3.5-5.1); Sodium Level 140 mmol/L (136-145)
[2019-08-04 18:24] LABS: Absolute Lymphocyte Count 2.16 X10^3/uL (0.83-4.51); Absolute Neutrophil Count 4.6 X10^3/uL (2.0-7.7); Basophil# 0.04 X10^3/uL; Basophil% 0.5 % (0-1); Eosinophil# 0.08 X10^3/uL; Eosinophils% 1.1 % (0-5); Hematocrit 44.2 % (37-47); Hemoglobin 14.5 g/dL (12.0-15.0); Lymphocyte # 2.16 X10^3/ul (4.0); Lymphocyte % 28.9 % (19-41); Mean Corp Hgb Conc 32.8 g/dL (32-36); Mean Corpuscular Hgb 29.2 pg (27.0-32.0); Mean Corpuscular Volume 88.9 fL (81-99); Mean Platelet Vol. 8.4 fl (6.2-12.0); Monocyte# 0.57 X10^3/uL; Monocyte% 7.6 % (0-10); NRBC Flagged by Analyzer 0 % (0-5); Neutrophil # 4.61 X10^3/uL (2.7-7.7); Neutrophil % 61.6 % (47-70); Platelet Count 284 K/mm3 (150-450); RBC Distribution Width CV 12.1 % (11.6-14.6); RBC Distribution Width SD 39.2 fl (35.1-43.9); Red Blood Count 4.97 M/mm3 (4.2-5.4); White Blood Count 7.5 K/mm3 (4.4-11.0)
[2019-08-04 18:50] LABS: Internal QC Validated? YES +Cl - CLEAR BKGD; Pregnancy, Serum, hCG Quali. NEGATIVE Negative
--- NOTE | 2019-08-04 19:34 | ED.DCSUM_ITS ---
- ER Visit Summary Date of Service: 08/04/19 Chief Complaint: [Vaginal bleeding] History of Present Illness: The patient is a 24 F [presents to the emergency department with vaginal bleeding that started a week and a half ago. Patient states that today she passed a very large clot and became concerned. Patient states that she is had some mild right sided abdominal discomfort. Over the course last week and a half is been going through about 5 pads a day. Patient states that normally her periods are not heavy. Patient states that she is never been . Her last menstrual period was at the end of June. She has not taken a home test.] Physical Examination: [HEENT-PERRLA, EOMI. Cranial nerves II through XII grossly intact. TMs clear. Mucous membranes moist. No adenopathy. Cardiovascular-regular rate and rhythm without murmur or ectopy Lungs-clear to auscultation, chest wall stable without crepitus or subcu emphysema Abdomen-normoactive bowel sounds, soft, nontender, no rebound or rigidity, no peritoneal signs. Extremities-intact ?4, normal range of motion, normal pulses, atraumatic] Test Results: [CBC with differential obtained for white count 7.5, hemoglobin 14, hematocrit 44, platelets 284. History is unremarkable. hCG was negative.] Emergency Department Course and Treatment: [I discussed results with patient and she is wanted to make sure she was not . I offered to perform a pelvic exam to evaluate for any abnormalities or to attempt to ascertain because of bleeding however she is deferring this. Patient states that she had a pelvic exam 2 months ago.] Treatment Plan: [Discharged home in stable condition. 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 It may contain incorrect words, spelling, and punctuation that were not noted in review of the chart prior to signing ED Disposition - Plan for ED Patient: Referrals: Alfredo Barroso MD [Primary Care Provider] -
--- NOTE | 2019-08-04 19:36 | ED.DEP ---
ED Disposition - Plan for ED Patient: Instructions: Dysfunctional Uterine Bleeding Referrals: Alfredo Barroso MD [Primary Care Provider] - 3-5 Days
[2019-08-04 20:00] VITALS: BP 127/82; PULSE 78; RESP 16; O2SAT 97
== END 2019-08-04 20:00 | disposition home or self-care (01) ==
LOC: ED 18:34
PROVIDERS: Emergency Provider Emergency Medicine; Family Provider Family Medicine; PCP Family Medicine
DX: N93.8 Other specified abnormal uterine and vaginal bleeding (principal); Z87.891 Personal history of nicotine dependence
CPT/HCPCS: 80048; 84703; 85025; 99282; A4216

== ENCOUNTER 2019-08-24 23:54 | Emergency (ER) | payer MEDICAID, SELFPAY ==
[2019-08-24 23:56] VITALS: BP 155/97; PULSE 77; RESP 18; TEMP 36.8; O2SAT 97; BMI 42.9
--- NOTE | 2019-08-25 00:11 | ED.VIS.GEN ---
History of Present Illness Chief Complaint: Back Informant: Patient Narrative: Presents with a low back injury. She stated she was moving the stove and bent over to pick something up and felt some pain in her low back. On the right side. No radiation. No loss of bowel or bladder function. No home treatment. Came in for further evaluation. Worse with movement. She has strained her back in the low remote past Past Medical History - Allergies and Home Meds Allergies/Adverse Reactions: Allergies peanut Allergy (Verified 08/24/19 23:58) Swelling mold Adverse Reaction (Verified 08/24/19 23:58) Other morphine Adverse Reaction (Verified 08/24/19 23:58) Chest tightness Primary Care Physician: Alfredo Barroso MD [Primary Care Provider] - Prior records reviewed: Yes Past Medical History: - - Bone spur Surgical History: noncontributory Lives: With Family Smoking Status: Former smoker Alcohol: None Drugs: None Review of Systems General: Denies: Chills, Fever, Sweats Eyes: Denies: Visual changes - bilaterally, Diplopia ENT: Denies: Rhinorrhea, Sore throat Cardiovascular: Denies: Chest pain, Palpitations Respiratory: Denies: Dyspnea, Cough, Dyspnea on exertion Gastrointestinal: Denies: Abdominal pain, Nausea, Vomiting, Diarrhea, Melena, Hematochezia Genitourinary: Denies: Dysuria, Hematuria, Frequency Musculoskeletal: Reports: Back pain. Denies: Extremity Pain Skin: Denies: Rash, Wounds Neurological: Denies: Headache, Weakness, Numbness Physical Exam Vital Signs/Narrative: Vital Signs Temp Pulse Resp BP Pulse Ox 08/24/19 23:56 98.2 F 77 18 155/97 H 97 General: Well nourished, Well developed, No Acute Distress Head: Normocephalic, Atraumatic Eyes: Perrl, EOMI ENT: Moist mucous membranes, No rhinorrhea Neck: Supple, Nontender Cardiovascular: Regular rate, Regular rhythm, No murmurs Respiratory: No distress, CTA bilaterally, Chest nontender Abdomen: Soft, Nontender, Nondistended, Normal bowel sounds Back: Normal Inspection, - - Tenderness in the right paraspinals with no swelling or deformity. Mild decreased range of motion all rosales secondary to pain. Negative for: Nontender, CVA tenderness, Spinal tenderness Extremities: Nontender, No edema Skin: Normal color, No rash Neurological: Alert, Oriented x3, Cranial nerves II-XII grossly intact, Normal Strength, Normal Sensation Psychological: Normal affect, Normal Mood Diagnostic/Tx/Re-eval - Medical Decision Making Anything for pain. I offered her a Toradol shot ibuprofen. She has Aleve at home. She is given a rest and ice. I do not think she needs imaging. I think she just has a back strain. We will follow-up as an outpatient. ED Disposition - Plan for ED Patient: Disposition: Home or Assisted Living Diagnosis: Low back strain Instructions: Back Sprain/Strain Referrals: Alfredo Barroso MD [Primary Care Provider] -
== END 2019-08-25 00:23 | disposition home or self-care (01) ==
LOC: ED 08-25 00:22
PROVIDERS: Emergency Provider Emergency Medicine; Family Provider Family Medicine; PCP Family Medicine
DX: S39.012A Strain of muscle, fascia and tendon of lower back, initial encounter (principal); X50.1XXA Overexertion from prolonged static or awkward postures, initial encounter; Y93.9 Activity, unspecified; Y92.9 Unspecified place or not applicable; Z87.891 Personal history of nicotine dependence
CPT/HCPCS: 99282

== ENCOUNTER 2019-11-30 09:17 | Emergency (ER) | payer MEDICAID, SELFPAY ==
[2019-11-30 09:18] VITALS: BP 126/84; PULSE 64; RESP 14; TEMP 37.1; O2SAT 99; BMI 43.4
--- NOTE | 2019-11-30 09:43 | ED.VIS.GEN ---
History of Present Illness Chief Complaint: Dental Informant: Patient Onset: Days Context: Gradual Onset Timing: Continuous Current Severity: Moderate Maximum Severity: Moderate Narrative: The patient presents to the emergency department with dental pain. Patient was in his normal state of health. She states that 2 days ago, she began to have pain along her right lower jaw. She does have a known cavity. She states the pain and swelling has worsened. She denies any fevers or change in voice. She denies any neck fullness or swelling. She has taken ibuprofen with little improvement. Prior similar symptoms: Yes Recent Illness/Hospitalization: No Past Medical History - Allergies and Home Meds Allergies/Adverse Reactions: Allergies peanut Allergy (Verified 11/30/19 09:18) Swelling mold Adverse Reaction (Verified 11/30/19 09:18) Other morphine Adverse Reaction (Verified 11/30/19 09:18) Chest tightness Primary Care Physician: Alfredo Barroso MD [Primary Care Provider] - Prior records reviewed: Yes Past Medical History: None Surgical History: noncontributory Smoking Status: Former smoker Review of Systems General: Denies: Chills, Fever, Sweats Eyes: Denies: Visual changes - bilaterally, Diplopia ENT: Denies: Rhinorrhea, Sore throat Cardiovascular: Denies: Chest pain, Palpitations Respiratory: Denies: Dyspnea, Cough, Dyspnea on exertion Gastrointestinal: Denies: Abdominal pain, Nausea, Vomiting, Diarrhea, Melena, Hematochezia Genitourinary: Denies: Dysuria, Hematuria, Frequency Musculoskeletal: Denies: Back pain, Extremity Pain Skin: Denies: Rash, Wounds Neurological: Denies: Headache, Weakness, Numbness Physical Exam Vital Signs/Narrative: Vital Signs Temp Pulse Resp BP Pulse Ox 11/30/19 09:18 98.7 F 64 14 126/84 H 99 Inital Vital Signs reviewed: Yes General: Well nourished, Well developed, No Acute Distress Head: Normocephalic, Atraumatic Eyes: Perrl, EOMI ENT: Moist mucous membranes, No rhinorrhea, - - Oral mucosa is pink and moist. There is focal abscess at tooth 31. There is no submental swelling. There is no trismus or stridor. Neck: Supple, Nontender Cardiovascular: Regular rate, Regular rhythm, No murmurs Respiratory: No distress, CTA bilaterally, Chest nontender Abdomen: Soft, Nontender, Nondistended, Normal bowel sounds Back: Nontender, Normal Inspection Extremities: Nontender, No edema Skin: Normal color, No rash Neurological: Alert, Oriented x3, Cranial nerves II-XII grossly intact, Normal Strength, Normal Sensation Psychological: Normal affect, Normal Mood Diagnostic/Tx/Re-eval - Medical Decision Making There is no evidence of [place] angina. The patient does have localized erythema of the gumline without overt abscess that would benefit from incision and drainage. There is no submental swelling or trismus. The patient will be started on Augmentin and anti-inflammatories. She will be given outpatient dental resources. She will be discharged home. Impression 1. Dental abscess ED Disposition - Plan for ED Patient: Instructions: Dental Abscess Prescriptions: Amox/Clavulanate Tablet [Augmentin Tablet] 875 mg PO Q12H #20 tab Prescription Printed Naproxen [Naprosyn] 500 mg PO BID PRN #20 tab Prescription Printed Referrals: Alfredo Barroso MD [Primary Care Provider] -
[2019-11-30] MEDS: HYDROcodone Bitartrate/Apap 5/325 Tablet PO (10:17)
[2019-11-30 10:19] VITALS: RESP 17
== END 2019-11-30 10:20 | disposition home or self-care (01) ==
LOC: ED 09:57
PROVIDERS: Emergency Provider Emergency Medicine; PCP Family Medicine
DX: K04.7 Periapical abscess without sinus (principal); Z87.891 Personal history of nicotine dependence
CPT/HCPCS: 99283

== ENCOUNTER 2020-01-31 13:56 | Emergency (ER) | payer MEDICAID, SELFPAY ==
[2020-01-31 13:57] VITALS: BP 135/75; PULSE 69; RESP 18; TEMP 36.4; O2SAT 98; BMI 43.9
--- NOTE | 2020-01-31 14:11 | ED.DCSUM_ITS ---
History of Present Illness Chief Complaint: Laceration Informant: Patient Onset: Today Narrative: Patient presents the emergency department for laceration to the right index finger. 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 She notes that it is extremely painful for her. Past Medical History - Allergies and Home Meds Allergies/Adverse Reactions: Allergies peanut Allergy (Verified 01/31/20 13:59) Swelling mold Adverse Reaction (Verified 01/31/20 13:59) Other morphine Adverse Reaction (Verified 01/31/20 13:59) Chest tightness Primary Care Physician: Alfredo Barroso MD [Primary Care Provider] - Surgical History: noncontributory Smoking Status: Former smoker Review of Systems General: Denies: Chills, Fever, Sweats Eyes: Denies: Visual changes - bilaterally, Diplopia ENT: Denies: Rhinorrhea, Sore throat Cardiovascular: Denies: Chest pain, Palpitations Respiratory: Denies: Dyspnea, Cough, Dyspnea on exertion Gastrointestinal: Denies: Abdominal pain, Nausea, Vomiting, Diarrhea, Melena, Hematochezia Genitourinary: Denies: Dysuria, Hematuria, Frequency Musculoskeletal: Denies: Back pain, Extremity Pain Skin: Denies: Rash, Wounds Neurological: Denies: Headache, Weakness, Numbness Physical Exam Vital Signs/Narrative: Vital Signs Temp Pulse Resp BP Pulse Ox 01/31/20 13:57 97.6 F L 69 18 135/75 H 98 Inital Vital Signs reviewed: Yes General: Well nourished, Well developed, No Acute Distress Head: Normocephalic, Atraumatic Eyes: Perrl, EOMI ENT: Moist mucous membranes, No rhinorrhea Neck: Supple, Nontender Cardiovascular: Regular rate, Regular rhythm, No murmurs Respiratory: No distress, CTA bilaterally, Chest nontender Abdomen: Soft, Nontender, Nondistended, Normal bowel sounds Back: Nontender, Normal Inspection Extremities: Nontender, No edema Skin: Normal color, No rash, Trauma - There is a 2 cm linear laceration superficially along the fat pad of the distal Neurological: Alert, Oriented x3, Cranial nerves II-XII grossly intact, Normal Strength, Normal Sensation Psychological: Normal affect, Normal Mood Diagnostic/Tx/Re-eval - Medical Decision Making The wound was cleansed and then closed using tissue adhesive. Wound care discussed with patient ED Disposition - Plan for ED Patient: Disposition: Home or Assisted Living Diagnosis: Finger laceration Instructions: ED Laceration Ext Skin Glue Referrals: Alfredo Barroso MD [Primary Care Provider] - As Needed
== END 2020-01-31 14:38 | disposition home or self-care (01) ==
LOC: ED 14:22
PROVIDERS: Emergency Provider Emergency Medicine; PCP Family Medicine
DX: S61.210A Laceration without foreign body of right index finger without damage to nail, initial encounter (principal); X58.XXXA Exposure to other specified factors, initial encounter; Y93.9 Activity, unspecified; Y92.9 Unspecified place or not applicable; Z87.891 Personal history of nicotine dependence
CPT/HCPCS: 12001; 99283

== ENCOUNTER 2020-03-26 23:09 | Emergency (ER) | payer MEDICAID, SELFPAY ==
[2020-03-26 23:10] VITALS: BP 151/78; PULSE 87; RESP 15; TEMP 36.7; O2SAT 97; BMI 44.4
--- NOTE | 2020-03-26 23:20 | US_ITS ---
STUDY: ULTRASOUND OF THE FEMALE PELVIS - COMPLETE REASON FOR EXAM: Female, 24 years old. Heavy bleeding since last menstrual cycle. LMP: 03/11/2020. TECHNIQUE: Transabdominal and Transvaginal TECHNICAL QUALITY: Adequate. COMPARISON: CT abdomen and pelvis May 24, 2017. FINDINGS: The uterus is anteverted and is in a midline position. The uterus measures 7.9 x 5.3 x 4.1 cm. Normal uterine cervix. The endometrium measures 21 mm in thickness, and is hyperechoic. There is no demonstrated endometrial mass. There is no demonstrated myometrial mass. I.U.D. - The patient does not have an I.U.D. The right ovary is visualized. The right ovary measures 3.3 x 2.3 x 1.6 cm. There is no right ovarian cyst or ovarian mass. There is no visualized right adnexal mass or complex lesion. There is normal arterial and normal venous vascularity. The left ovary is visualized. The left ovary measures 3.5 x 2.5 x 2.0 cm. There is no left ovarian cyst or ovarian mass. There is no visualized left adnexal mass or complex lesion. There is normal arterial and normal venous vascularity. There is no fluid in the cul-de-sac. US/Transvaginal Non- IMPRESSION: Thickened endometrium. Endometrial thickness is variable in a woman of childbearing age. Recommend FIBRE CEMENT MOULDER consult. Otherwise negative exam. Electronically Signed: Ed Boyd MD at 0:24 EDT , Service support ,
--- NOTE | 2020-03-27 00:01 | ED.VISSUMM ---
- ER Visit Summary Date of Service: 03/27/20 Chief Complaint: Vaginal bleeding History of Present Illness: The patient is a 24 F with vaginal bleeding that started with her normal menstrual cycle earlier this month. She is passing large clots. She had a negative home test. She is not currently on hormones or control. History of bleeding in the past which resolved spontaneously. She has not had any instrumentation or surgery. She is not on blood thinners. Denies fever. Denies any other ACCESS NURSE, GI, or symptoms. Physical Examination: Afebrile and vital signs unremarkable. Skin appears normal in color without pallor or diaphoresis. Abdomen is soft. Back exam deferred. Test Results: Laboratory studies, urinalysis, and ultrasound pending. Emergency Department Course and Treatment: CBC normal. Metabolic panel, test, urine unremarkable. Ultrasound shows thickened endometrium, [address] Chiu. Will start Sprintec. Take 2 tablets the first 2 days and then follow-up in the office Treatment Plan: As above Disposition: Discharge Impression: Vaginal bleeding This note was generated with [employer] dictation software. It may contain incorrect words, spelling, and punctuation that were not noted in review of the chart prior to signing ED Disposition - Plan for ED Patient: Referrals: Alfredo Barroso MD [Primary Care Provider] -
[2020-03-27 00:02] LABS: Absolute Neutrophil Count 4.6 X10^3/uL (2.0-7.7); Basophil# 0.03 X10^3/uL; Basophil% 0.4 % (0-1); Eosinophil# 0.14 X10^3/uL; Eosinophils% 1.8 % (0-5); Hematocrit 41.4 % (37-47); Hemoglobin 13.5 g/dL (12.0-15.0); Lymphocyte % 32.6 % (19-41); Mean Corp Hgb Conc 32.6 g/dL (32-36); Mean Corpuscular Hgb 29.4 pg (27.0-32.0); Mean Corpuscular Volume 90.2 fL (81-99); Mean Platelet Vol. 8.5 fl (6.2-12.0); Monocyte# 0.58 X10^3/uL; Monocyte% 7.3 % (0-10); NRBC Flagged by Analyzer 0 % (0-5); Neutrophil % 57.5 % (47-70); Platelet Count 265 K/mm3 (150-450); RBC Distribution Width CV 11.9 % (11.6-14.6); RBC Distribution Width SD 39.3 fl (35.1-43.9); Red Blood Count 4.59 M/mm3 (4.2-5.4)
[2020-03-27 00:14] LABS: Internal QC Validated? YES +Cl - CLEAR BKGD; Pregnancy, Serum, hCG Quali. NEGATIVE Negative
[2020-03-27 00:15] LABS: Bacteria 0 SEEN /hpf (None Seen); Mucous, Urine 0 SEEN /hpf (<or=2+); Squamous Epithelial Cells - UA 0 SEEN /hpf (5-10); White Blood Cells 0 SEEN /hpf (0-5)
[2020-03-27 00:17] LABS: Glucose, Dipstick Normal (Normal); Ketone-Dipstick Negative (Negative); Leukocyte Esterase-Dipstick Negative /ul (Negative); Nitrite-Dipstick Negative (Negative); Occult Blood-Urine 250 /ul (Negative); Protein-Dipstick 30 mg/dl (Negative); Urine Bilirubin Dipstick Negative (Negative); Urine Clarity Sl. Cloudy (Clear); Urine Urobilinogen Normal (Normal)
[2020-03-27 00:19] LABS: Color, Urine SEE COMMENT BELOW (Yellow)
[2020-03-27 00:20] LABS: AST(SGOT) 15 U/L (15-37); Alanine Aminotransfer ALT/SGPT 52 U/L (13-56); Albumin, Serum 3.7 g/dL (3.2-5.0); Alkaline Phosphatase 69 U/L (45-117); Anion Gap 4 (5-15); BUN 9 mg/dL (7-18); BUN/Creat Ratio 15.6 RATIO (10-20); Calcium,Total 8.7 mg/dL (8.5-10.1); Chloride 107 mmol/L (98-107); Creatinine, Serum 0.58 mg/dL (0.55-1.02); EST Glomerular Filtration Rate 136 mL/min (>60); Est Glom Filt Rate - Afr Amer 164 mL/min (>60); Estimated Creatinine Clearance 134.58 ml/min; Globulin 3.7 g/dL (2.2-4.2); Glucose 113 mg/dL (74-106); Potassium 3.6 mmol/L (3.5-5.1); Protein, Total 7.4 g/dL (6.4-8.2); Sodium Level 142 mmol/L (136-145)
[2020-03-27 00:23] LABS: Red Blood Cells-Urine 25-50 SEEN /hpf (0-5)
[2020-03-27 00:34] LABS: Prothrombin Time (Protime)PT. 12.6 SECONDS (11.7-14.9)
[2020-03-27 00:35] LABS: Partial Thromboplast Time 27.1 Seconds (24.1-36.2)
--- NOTE | 2020-03-27 01:29 | ED.DEP ---
ED Disposition - Plan for ED Patient: Instructions: ED Bleed Irregular Vaginal Prescriptions: Norgestimate-Ethinyl Estradiol [Sprintec 28 Day Tablet] 1 ea PO DAILY #28 tab Prescription Printed Referrals: Daniel Chiu MD [STAFF PHYSICIAN] -
[2020-03-27 01:46] VITALS: RESP 14
== END 2020-03-27 01:46 | disposition home or self-care (01) ==
LOC: ED 23:45
PROVIDERS: Emergency Provider Emergency Medicine; PCP Family Medicine
DX: N93.9 Abnormal uterine and vaginal bleeding, unspecified (principal); R93.89 Abnormal findings on diagnostic imaging of other specified body structures
CPT/HCPCS: 76830; 80053; 81001; 84703; 85025; 85610; 85730; 99283; A4216

== ENCOUNTER → 2020-04-05 14:31 | Outpatient (CLI) | payer MEDICAID, SELFPAY ==
[2020-03-26 23:10] VITALS: BMI 44.4
[2020-04-05 19:03] LABS: Chlamydia Trachomatis by PCR Negative (Negative); Neisserai gonorrhoeae by PCR Negative (Negative); Probe Check PASS; Sample Adequacy Control PASS; Specimen Processing Control PASS
[2020-04-14 17:36] LABS: HPV APTIMA, High Risk Negative (Negative); HPV Reflexed? YES, CHARGE PATIENT
== END ==
PROVIDERS: PCP Family Medicine; Visit Provider Obstetrics & Gynecology
DX: Z12.4 Encounter for screening for malignant neoplasm of cervix (principal); Z11.3 Encounter for screening for infections with a predominantly sexual mode of transmission
CPT/HCPCS: 87491; 87591; 87624; 88175; G0145

== ENCOUNTER 2020-04-06 09:52 | Day surgery (SDC) | payer MEDICAID, SELFPAY ==
[2020-04-06] VITALS (9 sets, daily range): BP systolic 91–133; BP diastolic 58–75; PULSE 57–91; RESP 16–18; TEMP 36.3–36.8; O2SAT 93–100; BMI 44.0
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
[2020-04-06] MEDS: Lactated Ringers 1,000 ML 100 ML IV (10:20)
[2020-04-06 10:40] LABS: Internal QC Validated? YES +Cl - CLEAR BKGD; Pregnancy, Serum, hCG Quali. NEGATIVE Negative
--- NOTE | 2020-04-06 11:30 | EMB_PTH ---
PATIENT: CARLOS CHAVEZ LOC: [facility] [place] U#:[id number] AGE/SX: 24/F ROOM: RE04/06/[address]: Dr. Daniel Chiu MD : 1995 BED: DIS: 04/06/2020 SPEC #: [id number] RECD: 04/06/20 13:51 STATUS: PRATEEK REQ #: [id number] LISSETH: 04/06/20 11:[address]: Daniel Chiu DEPT: SURGICAL PATHOLOGY RECD BY: Jesus Penaloza ENTERED: 04/09/20 08:36 SP TYPE: ENDOM BX/C OTHR DR: Dr. Alfredo Barroso MD Tissues: Endometrium, NOS Procedures: Surgery Specimen Level IV Comments: @ Specimen number changed from to @ on 04/10/20 at 0813 by ZervantOD. @ Specimen number changed from to @ on 04/10/20 at 0814 by ZervantOD. HEADER OPERATION: Hysteroscopy, D & C PRE-OP DIAGNOSIS: Menorrhagia TISSUE SUBMITTED: Endometrial curettings MICROSCOPIC DIAGNOSIS Endometrial curettings: Dyssynchronous endometrium. Fragments of benign endocervical mucosa. See comment. LUISA:zarina 04/10/20 COMMENT The endometrium shows variable phases consisting of secretory endometrium, proliferative endometrium with focal area of simple endometrial hyperplasia without atypia and focal changes consistent with exogenous hormone effects. Clinical correlation and appropriate follow up are necessary. Case has been reviewed in consultation with Dr. Kang who concurs with the above diagnosis. IDC:AM MICROSCOPIC DESCRIPTION Slides are reviewed. GROSS DESCRIPTION Received in fixative is one container labeled with the patient's name and designated endometrial curettings. The specimen consists of multiple fragments of amanda hemorrhagic soft tissue mixed with blood clot that in aggregate measure 5 x 3 x 0.6 cm. The entire specimen is submitted in four cassettes. / LUISA:zarina 04/09/20 TC:5 CPT: 02313
--- NOTE | 2020-04-06 12:48 | PCM.OPRPT ---
Report of Operation Date of Procedure: 04/06/20 Pre-Operative Diagnosis: Menorrhagia Post-Operative Diagnosis: Menorrhagia Surgery/Procedure Performed:: Diagnostic Hysteroscopy, Dilation and Curettage Description of Surgical Findings:: 8 cm endometrial cavity without polyps or fibroids. [place] endometrium. Type of Anesthesia:: MAC Anesthesiologist: Feliz Lyn Estimated Blood Loss (mL): Minimal Fluids Replaced: Crystalloid Description of Procedure: Surgeon: Daniel Chiu MD, FACOG Indications: This is a 24 year old patient who has the above diagnosis. The patient has been counseled regarding the risk and indications of this procedure including the possibility of bleeding, infection, and injury to surrounding structures such as bowel bladder. All questions were answered and we consider the patient well-informed. Procedure: The patient was taken to the operating room where after induction of general anesthesia, she was placed in the dorsolithotomy position and prepped and draped in the usual sterile fashion. The bladder was drained of approximately 50 cc of clear yellow urine with a catheter. Anterior cervix was grasped with the tenaculum and dilated to about 4-5 mm. A 3 mm hysteroscope was placed in the uterus of the above findings were noted. Cervix was dilated to about 7-8 mm and uterus was gently curetted removing all contents. Hysteroscope was reinserted and all material was noted to be removed. In the course of the procedure approximately 100 cc of saline distending media was used and virtually all of this was recovered. Patient tolerated procedure well was taken to recovery room in satisfactory condition sponge instrument and needle counts were all reportedly correct. Estimated blood loss for the case was minimal. Specimens to pathology was endometrial curettings Complications: None Grafts/Implants Used: None - Complications None - Admit VTE Documentation VTE Present on Admission: Yes VTE Mechan Device Prophylaxis: SCD's
--- NOTE | 2020-04-06 13:05 | DCINST_ITS ---
Discharge Diet: No Restrictions Discharge Activity: Return to Normal Activity, May Shower, May Take a Tub Bath May resume sexual activity in: 2 weeks Call your doctor if you observe: Fever of 101 or Higher, Inability to urinate, Inability to have a bowel movement, Using more than one pad per hour Allergies/Adverse Reactions: Allergies peanut Allergy (Verified 04/06/20 10:19) Swelling mold Adverse Reaction (Verified 04/06/20 10:19) Other morphine Adverse Reaction (Verified 04/06/20 10:19) Chest tightness Medications to take at Discharge Norgestimate-Ethinyl Estradiol [Sprintec 28 Day Tablet] 1 ea PO DAILY #28 tab 03/27/20 Primary Care Physician: Alfredo Barroso MD [Primary Care Provider] - Test Results: Test results from this visit will be discussed in further detail at your follow- up appointment, if applicable. Please Follow Up With: Daniel Chiu MD When: 2-3 weeks
== END 2020-04-06 14:46 | disposition home or self-care (01) ==
LOC: SDC 09:52 → AC 09:53
PROVIDERS: PCP Family Medicine; Referring Provider Obstetrics & Gynecology; Visit Provider Obstetrics & Gynecology
PROC: 0UDB8ZZ Extraction of Endometrium, Via Natural or Artificial Opening Endoscopic (ICD-10-PCS; CPT 58558; principal; 2020-04-06 11:20)
DX: N85.01 Benign endometrial hyperplasia (principal); Z87.891 Personal history of nicotine dependence
CPT/HCPCS: 58558; 84703; 86850; 86900; 86901; 88305; J7120; J2405

== ENCOUNTER → 2020-05-11 13:59 | Outpatient (CLI) | payer MEDICAID, SELFPAY ==
[2020-04-06 10:28] VITALS: BMI 44.0
[2020-05-11 16:08] LABS: Progesterone Level 0.46 ng/mL (See Comment)
[2020-05-11 16:12] LABS: Prolactin 9.1 ng/mL
== END ==
PROVIDERS: PCP Family Medicine; Visit Provider Obstetrics & Gynecology
DX: N92.6 Irregular menstruation, unspecified (principal)
CPT/HCPCS: 36415; 84144; 84146; 84443

== ENCOUNTER → 2020-06-14 | Outpatient (CLI) | payer MEDICAID, SELFPAY ==
[2020-04-06 10:28] VITALS: BMI 44.0
[2020-06-14 11:05] LABS: Progesterone Level 16.25 ng/mL (See Comment)
== END | disposition home or self-care (01) ==
PROVIDERS: PCP Family Medicine; Visit Provider Obstetrics & Gynecology
DX: N92.6 Irregular menstruation, unspecified (principal)
CPT/HCPCS: 36415; 84144

== ENCOUNTER → 2020-08-24 13:37 | Outpatient (CLI) | payer MEDICAID, SELFPAY ==
[2020-04-06 10:28] VITALS: BMI 44.0
[2020-08-24 14:40] LABS: Progesterone Level 9.17 ng/mL (See Comment)
== END ==
PROVIDERS: PCP Family Medicine; Visit Provider Obstetrics & Gynecology
DX: N97.0 Female infertility associated with anovulation (principal); N91.1 Secondary amenorrhea
CPT/HCPCS: 36415; 84144

== ENCOUNTER 2020-08-26 02:03 | Emergency (ER) | payer MEDICAID, SELFPAY ==
[2020-04-06 10:28] VITALS: BMI 44.0
[2020-08-26 02:04] VITALS: BP 144/86; PULSE 85; RESP 20; TEMP 36.3; O2SAT 99; BMI 46.0
--- NOTE | 2020-08-26 02:15 | ED.VIS.GEN ---
History of Present Illness Chief Complaint: Dental Informant: Patient Narrative: Patient states that she is post dental extraction day 4. She states that she keeps getting food stuck in the socket. She has been rinsing but has a bad taste. She believes it is becoming infected. She is tried rinsing and using a toothpick to get food out. - Past Medical History (1) Neoplasm of uncertain behavior Status: Acute Comment: Right medial superior thigh Past Medical History - Allergies and Home Meds Allergies/Adverse Reactions: Allergies peanut Allergy (Verified 04/06/20 10:19) Swelling mold Adverse Reaction (Verified 04/06/20 10:19) Other morphine Adverse Reaction (Verified 04/06/20 10:19) Chest tightness Primary Care Physician: Alfredo Barroso MD [Primary Care Provider] - Prior records reviewed: Yes Surgical History: noncontributory Smoking Status: Former smoker Review of Systems General: Denies: Chills, Fever, Sweats Eyes: Denies: Visual changes - bilaterally, Diplopia ENT: Reports: - - HPI. Denies: Rhinorrhea, Sore throat Cardiovascular: Denies: Chest pain, Palpitations Respiratory: Denies: Dyspnea, Cough, Dyspnea on exertion Gastrointestinal: Denies: Abdominal pain, Nausea, Vomiting, Diarrhea, Melena, Hematochezia Genitourinary: Denies: Dysuria, Hematuria, Frequency Musculoskeletal: Denies: Back pain, Extremity Pain Skin: Denies: Rash, Wounds Neurological: Denies: Headache, Weakness, Numbness Physical Exam Vital Signs/Narrative: Vital Signs Temp Pulse Resp BP Pulse Ox 08/26/20 02:04 97.3 F L 85 20 H 144/86 H 99 Inital Vital Signs reviewed: Yes General: Well nourished, Well developed, Obese, No Acute Distress Head: Normocephalic, Atraumatic Eyes: Perrl, EOMI ENT: Moist mucous membranes, No rhinorrhea, - - Right lower molar extraction site does not show any focal swelling or abscess. I do not see any food particles in the socket. I do see a clot. Neck: Supple, Nontender, - - Floor the mouth is soft. No trismus. No facial erythema Cardiovascular: Regular rate, Regular rhythm, No murmurs Respiratory: No distress, CTA bilaterally, Chest nontender Abdomen: Soft, Nontender, Nondistended, Normal bowel sounds Back: Nontender, Normal Inspection Extremities: Nontender, No edema Skin: Normal color, No rash Neurological: Alert, Oriented x3, Cranial nerves II-XII grossly intact, Normal Strength, Normal Sensation Psychological: Normal affect, Normal Mood Diagnostic/Tx/Re-eval - Medical Decision Making I do not see any food in the socket. There is a clot. Patient is concerned about infection. Patient will be started on chlorhexidine rinse and Pen-Vee K. She will call her dentist on Thursday morning. ED Disposition - Plan for ED Patient: Disposition: Home or Assisted Living Diagnosis: Pain, dental Prescriptions: Chlorhexidine Gluconate [Paroex] 10 ml MM TID #210 ml Prescription Printed Penicillin V Potassium 500 mg PO 4X/DAY #27 tab Prescription Printed Referrals: Alfredo Barroso MD [Primary Care Provider] - Keep Matt appointment Additional Instructions: I would recommend that you call your dentist on Thursday to discuss your symptoms.
[2020-08-26] MEDS: Penicillin Vk 250 MG Tablet 500 MG PO (02:29)
[2020-08-26 02:30] VITALS: RESP 18
== END 2020-08-26 02:30 | disposition home or self-care (01) ==
LOC: ED 02:21
PROVIDERS: Emergency Provider Emergency Medicine; PCP Family Medicine
DX: K08.89 Other specified disorders of teeth and supporting structures (principal); E66.9 Obesity, unspecified; Z87.891 Personal history of nicotine dependence
CPT/HCPCS: 99282; A4216

== ENCOUNTER → 2020-08-28 10:39 | Outpatient (CLI) | payer MEDICAID, SELFPAY ==
[2020-08-26 02:04] VITALS: BMI 46.0
[2020-08-28 13:54] LABS: Internal QC Validated? YES +Cl - CLEAR BKGD
[2020-08-28 14:18] LABS: Pregnancy, Serum, hCG Quali. POSITIVE Negative (0-9 Nonpreg); hCG Titer Quant., Serum 25 mIU/mL (1-3)
== END ==
PROVIDERS: PCP Family Medicine; Visit Provider Obstetrics & Gynecology
DX: N91.2 Amenorrhea, unspecified (principal)
CPT/HCPCS: 36415; 84702; 84703

== ENCOUNTER → 2020-08-30 10:34 | Outpatient (CLI) | payer MEDICAID, SELFPAY ==
[2020-08-26 02:04] VITALS: BMI 46.0
[2020-08-30 12:01] LABS: hCG Titer Quant., Serum 74 mIU/mL (1-3)
== END ==
PROVIDERS: PCP Family Medicine; Visit Provider Obstetrics & Gynecology
DX: N91.2 Amenorrhea, unspecified (principal)
CPT/HCPCS: 36415; 84702

== ENCOUNTER 2020-09-16 23:45 | Emergency (ER) | payer MEDICAID, SELFPAY ==
[2020-09-16 23:45] VITALS: BP 130/65; PULSE 109; RESP 18; TEMP 36.1; O2SAT 99; BMI 46.0
--- NOTE | 2020-09-16 23:54 | ED.DCSUM_ITS ---
History of Present Illness Chief Complaint: Nausea/Vomiting Informant: Patient Narrative: 25-year-old G1, P0 at 6 weeks presents with concern for nausea and vomiting. States that she has been unable to hold down any food for the past 2 days. Multiple episodes of vomiting per day. Nonbloody nonbilious. States that she does have some upper epigastric burning. Denies any lower abdominal pain or vaginal bleeding. Past Medical History - Allergies and Home Meds Allergies/Adverse Reactions: Allergies peanut Allergy (Verified 04/06/20 10:19) Swelling mold Adverse Reaction (Verified 04/06/20 10:19) Other morphine Adverse Reaction (Verified 04/06/20 10:19) Chest tightness Primary Care Physician: Alfredo Barroso MD [Primary Care Provider] - Prior records reviewed: Yes Past Medical History: None Surgical History: noncontributory Lives: Spouse/ Significant Other Smoking Status: Former smoker Alcohol: None Drugs: None Review of Systems General: Denies: Chills, Fever, Sweats Eyes: Denies: Visual changes - bilaterally, Diplopia ENT: Denies: Rhinorrhea, Sore throat Cardiovascular: Denies: Chest pain, Palpitations Respiratory: Denies: Dyspnea, Cough, Dyspnea on exertion Gastrointestinal: Reports: Nausea, Vomiting. Denies: Abdominal pain, Diarrhea, Melena, Hematochezia Genitourinary: Denies: Dysuria, Hematuria, Frequency Musculoskeletal: Denies: Back pain, Extremity Pain Skin: Denies: Rash, Wounds Neurological: Denies: Headache, Weakness, Numbness Physical Exam Vital Signs/Narrative: Vital Signs Temp Pulse Resp BP Pulse Ox 09/16/20 23:45 96.9 F L 109 H 18 130/65 H 99 Inital Vital Signs reviewed: Yes General: Well nourished, Well developed, No Acute Distress Head: Normocephalic, Atraumatic Eyes: Perrl, EOMI ENT: Moist mucous membranes, No rhinorrhea Neck: Supple, Nontender Cardiovascular: Regular rate, Regular rhythm, No murmurs Respiratory: No distress, CTA bilaterally, Chest nontender Abdomen: Soft, Nondistended, Normal bowel sounds, - - TTP upper epigastrium. No rebound or guarding. Back: Nontender, Normal Inspection Extremities: Nontender, No edema Skin: Normal color, No rash Neurological: Alert, Oriented x3, Cranial nerves II-XII grossly intact, Normal Strength, Normal Sensation Psychological: Normal affect, Normal Mood Diagnostic/Tx/Re-eval Laboratory Data 09/16/20 09/16/20 09/17/20 00:15 00:15 00:05 WBC 6.0 RBC 4.91 Hgb 13.9 Hct 42.3 MCV 86.2 MCH 28.3 MCHC 32.9 RDW Std Deviation 39.9 RDW Coeff of Wiliam 12.7 Plt Count 230 MPV 8.6 Immature Gran % (Auto) 0.300 Neut % (Auto) 75.2 H Lymph % (Auto) 16.6 L [place] % (Auto) 7.7 Eos % (Auto) 0.0 Baso % (Auto) 0.2 Absolute Neuts (auto) 4.5 Absolute Lymphs (auto) 0.99 Nucleated RBC % 0 Sodium 138 Potassium 3.4 L Chloride 106 Carbon Dioxide 25.0 Anion Gap 7 BUN 5 L Creatinine 0.59 Estim Creat Clear Calc 120.58 Est GFR (MDRD) Af Amer 158 Est GFR (MDRD) Non-Af 131 BUN/Creatinine Ratio 8.4 L Glucose 89 Calcium 8.8 Total Bilirubin 0.90 AST 21 ALT 51 Alkaline Phosphatase 69 Total Protein 7.6 Albumin 3.6 Globulin 4.0 Albumin/Globulin Ratio 0.9 Lipase 47 L Urine Color Yellow Urine Clarity Sl. Cloudy Urine pH 6.5 Ur Specific Center [place] 1.020 Urine Protein 30 H Urine Glucose (UA) Normal Urine Ketones 150 H Urine Occult Blood Negative Urine Nitrite Negative Urine Bilirubin Negative Urine Urobilinogen 1 H Ur Leukocyte Esterase 100 H Urine RBC 0-5 SEEN Urine WBC 10-25 SEEN Ur Squamous Epith Cells 10-25 SEEN Urine Bacteria RARE Urine Mucus 0 SEEN - Medical Decision Making Patient appears well nontoxic. Not actively vomiting. Given 1 L of normal saline as well as Zofran. Patient has resolution of her symptoms. Patient does have some ketonuria. Will be given Zofran for home. Asked to follow-up with her primary SONO[employer] TECHNOLOGIST Dr. Chiu tomorrow. Patient also had contaminated urine which was sent for culture. Patient was also advised on B6 and Unisom. Asked to return for intractable vomiting or inability to take p.o. Patient agreeable and discharged home in stable condition. Impression: 1. Nausea and vomiting 2. First trimester ED Disposition - Plan for ED Patient: Disposition: Home or Assisted Living Instructions: ED Vomiting (Adult) Prescriptions: Ondansetron [Zofran Odt] 4 mg PO Q8H PRN PRN #10 tab PRN Reason: Nausea Prescription Printed Referrals: Alfredo Barroso MD [Primary Care Provider] - 2 Days Daniel Chiu MD [STAFF PHYSICIAN] - As soon as possible Additional Instructions: You may also take [id number] B6 and Unisom which will aid in your nausea.
[2020-09-17 00:08] LABS: Mucous, Urine 0 SEEN /hpf (<or=2+)
[2020-09-17 00:09] LABS: Color, Urine Yellow (Yellow); Glucose, Dipstick Normal (Normal); Leukocyte Esterase-Dipstick 100 /ul (Negative); Nitrite-Dipstick Negative (Negative); Occult Blood-Urine Negative /ul (Negative); Protein-Dipstick 30 mg/dl (Negative); Urine Bilirubin Dipstick Negative (Negative); Urine Clarity Sl. Cloudy (Clear); Urine Urobilinogen 1 mg/dl (Normal); Urine pH 6.5 (5.0 - 8.0)
[2020-09-17 00:14] LABS: Ketone-Dipstick 150 mg/dl (Negative)
[2020-09-17] MEDS: 0.9% Normal Saline 1,000 ML 1000 ML IV (00:14)
[2020-09-17] MEDS: Ondansetron 4 MG/2 ML Vial IV (00:14)
[2020-09-17 00:16] LABS: Bacteria RARE /hpf (None Seen); Red Blood Cells-Urine 0-5 SEEN /hpf (0-5); Squamous Epithelial Cells - UA 10-25 SEEN /hpf (5-10); White Blood Cells 10-25 SEEN /hpf (0-5)
[2020-09-17 00:20] LABS: Absolute Lymphocyte Count 0.99 X10^3/uL (0.83-4.51); Absolute Neutrophil Count 4.5 X10^3/uL (2.0-7.7); Basophil# 0.01 X10^3/uL; Basophil% 0.2 % (0-1); Hematocrit 42.3 % (37-47); Hemoglobin 13.9 g/dL (12.0-15.0); Lymphocyte # 0.99 X10^3/ul (4.0); Lymphocyte % 16.6 % (19-41); Mean Corp Hgb Conc 32.9 g/dL (32-36); Mean Corpuscular Hgb 28.3 pg (27.0-32.0); Mean Corpuscular Volume 86.2 fL (81-99); Mean Platelet Vol. 8.6 fl (6.2-12.0); Monocyte# 0.46 X10^3/uL; Monocyte% 7.7 % (0-10); NRBC Flagged by Analyzer 0 % (0-5); Neutrophil % 75.2 % (47-70); Platelet Count 230 K/mm3 (150-450); RBC Distribution Width CV 12.7 % (11.6-14.6); RBC Distribution Width SD 39.9 fl (35.1-43.9); Red Blood Count 4.91 M/mm3 (4.2-5.4)
[2020-09-17 00:37] LABS: ALB/GLOB Ratio 0.9 RATIO (0.9-2.4); AST(SGOT) 21 U/L (15-37); Alanine Aminotransfer ALT/SGPT 51 U/L (13-56); Albumin, Serum 3.6 g/dL (3.2-5.0); Alkaline Phosphatase 69 U/L (45-117); Anion Gap 7 (5-15); BUN 5 mg/dL (7-18); BUN/Creat Ratio 8.4 RATIO (10-20); Calcium,Total 8.8 mg/dL (8.5-10.1); Chloride 106 mmol/L (98-107); Creatinine, Serum 0.59 mg/dL (0.55-1.02); EST Glomerular Filtration Rate 131 mL/min (>60); Est Glom Filt Rate - Afr Amer 158 mL/min (>60); Estimated Creatinine Clearance 120.58 ml/min; Glucose 89 mg/dL (74-106); Lipase 47 U/L (73-393); Potassium 3.4 mmol/L (3.5-5.1); Protein, Total 7.6 g/dL (6.4-8.2); Sodium Level 138 mmol/L (136-145)
[2020-09-17 01:06] VITALS: BP 117/79; PULSE 86; RESP 16; O2SAT 100
== END 2020-09-17 01:08 | disposition home or self-care (01) ==
PROVIDERS: Emergency Provider Emergency Medicine; PCP Family Medicine
DX: O21.9 Vomiting of pregnancy, unspecified (principal); Z3A.01 Less than 8 weeks gestation of pregnancy; Z87.891 Personal history of nicotine dependence
CPT/HCPCS: 80053; 81001; 83690; 85025; 87086; 87088; 96361; 96374; 99283; A4216; J2405

== ENCOUNTER → 2020-10-17 14:30 | Outpatient (CLI) | payer MEDICAID, SELFPAY ==
[2020-10-17 15:28] LABS: Absolute Lymphocyte Count 1.42 X10^3/uL (0.83-4.51); Absolute Neutrophil Count 6.9 X10^3/uL (2.0-7.7); Basophil# 0.02 X10^3/uL; Basophil% 0.2 % (0-1); Eosinophil# 0.05 X10^3/uL; Eosinophils% 0.6 % (0-5); Hematocrit 40.6 % (37-47); Hemoglobin 13.4 g/dL (12.0-15.0); Lymphocyte # 1.42 X10^3/ul (4.0); Lymphocyte % 16.1 % (19-41); Mean Corpuscular Hgb 28.5 pg (27.0-32.0); Mean Corpuscular Volume 86.4 fL (81-99); Mean Platelet Vol. 8.7 fl (6.2-12.0); Monocyte# 0.36 X10^3/uL; Monocyte% 4.1 % (0-10); NRBC Flagged by Analyzer 0 % (0-5); Neutrophil # 6.94 X10^3/uL (2.7-7.7); Neutrophil % 78.5 % (47-70); Platelet Count 289 K/mm3 (150-450); RBC Distribution Width CV 13.1 % (11.6-14.6); RBC Distribution Width SD 40.8 fl (35.1-43.9); White Blood Count 8.8 K/mm3 (4.4-11.0)
[2020-10-17 16:24] LABS: Color, Urine Yellow (Yellow); Glucose, Dipstick Normal (Normal); Ketone-Dipstick Negative (Negative); Leukocyte Esterase-Dipstick Negative /ul (Negative); Nitrite-Dipstick Negative (Negative); Occult Blood-Urine Negative /ul (Negative); Protein-Dipstick Negative (Negative); Specific Gravity, Urine 1.015 (1.002-1.030); Urine Bilirubin Dipstick Negative (Negative); Urine Clarity Clear (Clear); Urine Urobilinogen Normal (Normal)
[2020-10-18 01:36] LABS: Prenatal RPR NONREACTIVE (NONREACTIVE)
[2020-10-18 09:52] LABS: HIV - WCH Non-Reactive (Nonreactive); Hepatitis B Surface Antigen Non-Reactive (Nonreactive); Hepatitis C Antibody Non-Reactive (Nonreactive); Rubella IgG Reactive (Nonreactive)
== END ==
PROVIDERS: PCP Family Medicine; Visit Provider Obstetrics & Gynecology
DX: Z34.81 Encounter for supervision of other normal pregnancy, first trimester (principal)
CPT/HCPCS: 36415; 81002; 84443; 85025; 86703; 86762; 86803; 87340

== ENCOUNTER → 2021-02-20 14:53 | Outpatient (CLI) | payer MEDICAID, SELFPAY ==
[2021-02-20 15:18] LABS: Hematocrit 35.4 % (37-47); Hemoglobin 11.2 g/dL (12.0-15.0); Mean Corp Hgb Conc 31.6 g/dL (32-36); Mean Corpuscular Hgb 27.5 pg (27.0-32.0); Mean Platelet Vol. 8.7 fl (6.2-12.0); Platelet Count 293 K/mm3 (150-450); RBC Distribution Width CV 12.9 % (11.6-14.6); RBC Distribution Width SD 40.9 fl (35.1-43.9); Red Blood Count 4.07 M/mm3 (4.2-5.4); White Blood Count 9.4 K/mm3 (4.4-11.0)
[2021-02-20 15:23] LABS: Glucose Challenge Gest 1H 50g 149 mg/dL (70-140)
== END ==
PROVIDERS: PCP Family Medicine; Visit Provider Obstetrics & Gynecology
DX: Z34.83 Encounter for supervision of other normal pregnancy, third trimester (principal)
CPT/HCPCS: 36415; 82950; 85027

== ENCOUNTER → 2021-02-25 09:41 | Outpatient (CLI) | payer MEDICAID, SELFPAY ==
[2021-02-25 11:25] LABS: Glucose GTT-Gestation. Fasting 105 mg/dL (<105)
[2021-02-25 13:16] LABS: Glucose GTT-Gestational 1 Hr 208 mg/dL (<190)
[2021-02-25 13:20] LABS: Glucose GTT-Gestational 2 Hr 212 mg/dL (<165)
[2021-02-25 13:49] LABS: Glucose GTT-Gestational 3 Hr 148 L (<145)
== END ==
PROVIDERS: PCP Family Medicine; Visit Provider Obstetrics & Gynecology
DX: O24.912 Unspecified diabetes mellitus in pregnancy, second trimester (principal); Z3A.00 Weeks of gestation of pregnancy not specified
CPT/HCPCS: 36415; 82951; 82952

== ENCOUNTER 2021-03-04 09:30 | Outpatient (RCR) | payer MEDICAID, SELFPAY | END 2021-03-11 23:59 | LOC: NS 09:30 | PROVIDERS: PCP Family Medicine; Visit Provider Obstetrics & Gynecology | DX: O24.410 Gestational diabetes mellitus in pregnancy, diet controlled (principal) | CPT/HCPCS: 97802; G0108 ==

== ENCOUNTER 2021-03-18 14:30 | Outpatient (RCR) | payer MEDICAID, SELFPAY | END 2021-03-18 23:59 | disposition home or self-care (01) | LOC: DC 14:30 | PROVIDERS: PCP Family Medicine; Visit Provider Obstetrics & Gynecology | DX: O24.410 Gestational diabetes mellitus in pregnancy, diet controlled (principal); Z3A.00 Weeks of gestation of pregnancy not specified ==

== ENCOUNTER 2021-03-25 23:23 | Outpatient (CLI) | payer MEDICAID, SELFPAY ==
[2021-03-25 23:31] VITALS: BMI 47.5
[2021-03-25 23:38] VITALS: BP 129/66; PULSE 100; TEMP 36.2; O2SAT 97
--- NOTE | 2021-03-27 00:18 | OB.TRI.NOTE ---
HPI - General HPI Narrative CARLOS CHAVEZ, is a 25 F who presents to labor and delivery at 33 weeks gestation with decreased movement. care has been remarkable for gestational diabetes poorly controlled presently using glyburide. This note is for date of visit from March 25-2020. Maternal Data Information MJ Calculator Estimated Delivery Date Method Current WG Current Estimate 05/10/21 Manual 37w 0d Final MJ: 05/10/21 Gestational age: 33+ weeks at time of this visit PFSH PFSH Home Medications PNV cmb#95-ferrous fumarate-FA 1 ea PO DAILY 09/17/20 [History Last Taken 04/14/21 08:00] ondansetron 4 mg PO Q8H PRN PRN #10 tab 09/17/20 [Rx Last Taken Unknown] glyburide 5 mg PO DAILY 03/25/21 [History Last Taken 04/13/21 21:00] iron 14 mg PO DAILY 03/25/21 [History Last Taken 04/14/21 08:00] glyburide 2.5 mg PO DAILY 04/14/21 [History Last Taken 04/14/21 08:00] Allergy/AdvReac Type Severity Reaction Status Date / Time peanut Allergy Swelling Verified 04/14/21 22:10 mold AdvReac Other Verified 04/14/21 22:10 morphine AdvReac Chest Verified 04/14/21 22:10 tightness Social History Smoking Status: Never smoker NST FHR Rate Baby A NST Reactive:: Yes FHR Category:: Category I Assessment & Plan (1) Decreased movement during : COMMENT: 33-week intrauterine with decreased movement. Movement noted by nursing. heart tones also reactive. Will discharge to home with routine instructions.
== END 2021-03-26 00:20 | disposition home or self-care (01) ==
LOC: WPOUT 23:26 → OBT 23:26
PROVIDERS: PCP Family Medicine; Visit Provider Obstetrics & Gynecology
DX: O36.8190 Decreased fetal movements, unspecified trimester, not applicable or unspecified (principal); Z3A.33 33 weeks gestation of pregnancy
CPT/HCPCS: 59025; 59050; 99218; G0378

== ENCOUNTER → 2021-04-12 | Outpatient (CLI) | payer MEDICAID, SELFPAY ==
[2021-03-25 23:31] VITALS: BMI 47.5
== END | disposition home or self-care (01) ==
LOC: LABSPEC 15:13
PROVIDERS: PCP Family Medicine; Visit Provider Obstetrics & Gynecology
DX: Z36.85 Encounter for antenatal screening for Streptococcus B (principal)
CPT/HCPCS: 87081

== ENCOUNTER 2021-04-14 22:03 | Outpatient (CLI) | payer MEDICAID, SELFPAY ==
[2021-04-14 22:10] VITALS: BMI 49.4
[2021-04-14 22:15] VITALS: TEMP 36.6; O2SAT 99
[2021-04-14 22:16] VITALS: BP 135/77; PULSE 88
--- NOTE | 2021-05-16 08:21 | OB.TRI.NOTE ---
HPI - General HPI Narrative CARLOS CHAVEZ, is a 26 F G1 @ who presents at 36 2/7wga with decreased movement, hx GDM. Maternal Data Information MJ Calculator Estimated Delivery Date Method Current WG Current Estimate 05/10/21 Manual 43w 5d 36 2/7wga PFSH PFSH Medical History ADHD (attention deficit hyperactivity disorder) Anxiety Gestational diabetes Post traumatic stress disorder (PTSD) Home Medications NK 05/11/21 [History Last Taken Unknown] Allergy/AdvReac Type Severity Reaction Status Date / Time peanut Allergy Swelling Verified 05/11/21 12:23 cranberry AdvReac Rash Verified 05/11/21 12:23 mold AdvReac Other Verified 05/11/21 12:23 morphine AdvReac Chest Verified 05/11/21 12:23 tightness Surgical History History of gynecologic surgery Social History Smoking Status: Former smoker History 1 Elective abortions Hx Para 0 Spontaneous abortions Hx # Term Pregnancies Ectopic pregnancies Hx # Pregnancies Multiple births # of living children NST FHR Rate Baby A Baseline: 145 Variability:: Moderate Accelerations:: 15 x 15 Decelerations:: None NST Reactive:: Yes FHR Category:: Category I Uterine Activity:: 0/10 Assessment & Plan (1) 36 weeks gestation of : PLAN: Reactive NST, d/c home
== END 2021-04-14 22:48 | disposition home or self-care (01) ==
LOC: WPOUT 22:08 → WP 22:09
PROVIDERS: PCP Family Medicine; Referring Provider Obstetrics & Gynecology; Visit Provider Obstetrics & Gynecology
DX: O36.8130 Decreased fetal movements, third trimester, not applicable or unspecified (principal); O24.419 Gestational diabetes mellitus in pregnancy, unspecified control; Z3A.36 36 weeks gestation of pregnancy
CPT/HCPCS: 59025; 59050; 99218; G0378

== ENCOUNTER 2021-04-28 18:00 | Outpatient (CLI) | payer MEDICAID, SELFPAY ==
[2021-04-28 18:08] VITALS: PULSE 214; O2SAT 98
[2021-04-28 18:24] LABS: Color, Urine Yellow (Yellow); Glucose, Dipstick Normal (Normal); Ketone-Dipstick Negative (Negative); Leukocyte Esterase-Dipstick 500 /ul (Negative); Nitrite-Dipstick Negative (Negative); Occult Blood-Urine 10 /ul (Negative); Protein-Dipstick 30 mg/dl (Negative); Specific Gravity, Urine 1.015 (1.002-1.030); Urine Bilirubin Dipstick Negative (Negative); Urine Clarity Sl. Cloudy (Clear); Urine Urobilinogen Normal (Normal); Urine pH 6.5 (5.0 - 8.0)
[2021-04-28 18:25] VITALS: BP 128/67; PULSE 86
[2021-04-28 18:34] VITALS: BMI 51.0
--- NOTE | 2021-04-28 18:37 | OB.TRI.NOTE ---
HPI - General HPI Narrative CARLOS CHAVEZ, is a 26 F who presents with leakage of fluid Maternal Data Information MJ Calculator Estimated Delivery Date Method Current WG Current Estimate 05/10/21 Manual 38w 4d PFSH PFSH Home Medications PNV cmb#95-ferrous fumarate-FA 1 ea PO DAILY 09/17/20 [History Last Taken 04/14/21 08:00] ondansetron 4 mg PO Q8H PRN PRN #10 tab 09/17/20 [Rx Last Taken Unknown] iron 14 mg PO DAILY 03/25/21 [History Last Taken 04/14/21 08:00] glyburide 2.5 mg PO DAILY 04/14/21 [History Last Taken 04/14/21 08:00] Allergy/AdvReac Type Severity Reaction Status Date / Time peanut Allergy Swelling Verified 04/28/21 18:32 mold AdvReac Other Verified 04/28/21 18:32 morphine AdvReac Chest Verified 04/28/21 18:32 tightness Social History Smoking Status: Never smoker NST FHR Rate Baby A Baseline: 150 Variability:: Moderate Accelerations:: 15 x 15 Decelerations:: None NST Reactive:: Yes Uterine Activity:: Few contractions Assessment & Plan (1) : PLAN: Patient arrives with leakage of fluid. Ruled out rupture. Discharge home follow-up at scheduled appointments.
[2021-04-28 18:48] LABS: ROM Internal Control Test YES-OK TO RESULT pt. (Internal QC)
[2021-04-28 18:51] LABS: ROM Patient Test Negative (Negative)
== END 2021-04-28 19:24 | disposition home or self-care (01) ==
LOC: WPOUT 18:04 → WP 18:05
PROVIDERS: PCP Family Medicine; Visit Provider Obstetrics & Gynecology
DX: Z34.90 Encounter for supervision of normal pregnancy, unspecified, unspecified trimester (principal)
CPT/HCPCS: 59025; 59050; 81002; 84112; 87086; 87088; 99218; G0378

== ENCOUNTER 2021-05-04 05:50 | Inpatient (IN) | payer MEDICAID, SELFPAY ==
[2021-05-04] VITALS (51 sets, daily range): BP systolic 114–157; BP diastolic 55–91; PULSE 67–108; TEMP 36.1–37.2; O2SAT 91–100; BMI 49.6
[2021-05-04 05:50] LABS: ROM Internal Control Test YES-OK TO RESULT pt. (Internal QC); ROM Patient Test POSITIVE (Negative)
[2021-05-04] MEDS: Lactated Ringers 500 ML 999 ML IV ×2 (06:00→09:00)
[2021-05-04 06:16] LABS: Absolute Lymphocyte Count 2.29 X10^3/uL (0.83-4.51); Absolute Neutrophil Count 6.1 X10^3/uL (2.0-7.7); Basophil# 0.02 X10^3/uL; Basophil% 0.2 % (0-1); Eosinophil# 0.02 X10^3/uL; Eosinophils% 0.2 % (0-5); Hematocrit 38.5 % (37-47); Hemoglobin 12.6 g/dL (12.0-15.0); Lymphocyte # 2.29 X10^3/ul (0.83-4.51); Lymphocyte % 24.9 % (19-41); Mean Corp Hgb Conc 32.7 g/dL (32-36); Mean Corpuscular Hgb 26.4 pg (27.0-32.0); Mean Corpuscular Volume 80.7 fL (81-99); Mean Platelet Vol. 9.7 fl (6.2-12.0); Monocyte# 0.68 X10^3/uL; Monocyte% 7.4 % (0-10); NRBC Flagged by Analyzer 0 % (0-5); Neutrophil # 6.13 X10^3/uL (2.7-7.7); Neutrophil % 66.9 % (47-70); Platelet Count 285 K/mm3 (150-450); RBC Distribution Width CV 14.1 % (11.6-14.6); RBC Distribution Width SD 41.6 fl (35.1-43.9); Red Blood Count 4.77 M/mm3 (4.2-5.4); White Blood Count 9.2 K/mm3 (4.4-11.0)
[2021-05-04] MEDS: Mag Hydrox/Al Hydrox/Simeth 30 ML UDC PO ×2 (06:20→20:51)
[2021-05-04] MEDS: Lactated Ringers 1,000 ML 50 ML IV (06:31)
[2021-05-04 07:05] LABS: Bedside Glucose 85 mg/dL (70-110)
[2021-05-04 07:05] LABS: Bedside Glucose 66 mg/dL (70-110)
[2021-05-04] MEDS: fentaNYL 100 MCG/2 ML Ampul IV (08:28)
[2021-05-04] MEDS: fentaNYL-bupivacaine (epidural) 100 ML BAG EPIDURAL ×3 (10:08→19:21)
--- NOTE | 2021-05-04 11:28 | HP.PCM.OB_ITS ---
History and Physical Date of Admission: 05/04/21 Chief complaint: Contractions, leakage of fluid History of present illness: 26-year-old G1, P0 at 39 weeks and 1 day with MJ: 05/10/2021 by LMP arrives with contractions and leakage of clear fluid. Denies headache, visual changes, chest pain, shortness of breath, nausea vomiting, rectal quadrant pain. Patient states good movement. This is complicated by GDM A2 on glyburide 5 mg twice daily Obstetric history: G1: Current Past medical history: Anxiety, GDM A2 Medications: Glyburide 5 mg twice daily, vitamin Past surgical history: Hysteroscopy D&C Allergies: Morphine, peanuts Social history: Former smoker, no alcohol or drug use Family history: Denies history DVT or PE Review of systems: Besides above pertinent positives a full review systems was performed and found a negative Physical exam: Vital signs: Blood pressure 128/70 pulse 76 SpO2 100% on room air General: Normal-appearing no acute distress HEENT: Normocephalic atraumatic no cervical lymphadenopathy Cardiac/respiratory: Nonlabored breathing, no use of accessory muscles Abdomen: Soft, nontender, gravid Pelvic exam: Cervical exam 4/60/-3. Thin meconium. Fore bag noted and AROM of fore bag Extremities: No peripheral edema normal peripheral pulses Psych: Normal affect normal demeanor nonpressured speech Labs: White blood cell count 9.2 hemoglobin 12.6 MetaGrip 38.5% platelets 285. ROM positive. Blood type a positive antibody negative Assessment and plan: 26-year-old G1, P0 SROM thin meconium Admit labor and delivery CEFM GBS negative Meconium: [employer] be present at delivery GDM A2: We will continue monitoring blood sugars per protocol throughout labor Routine orders Anesthesia see
[2021-05-04 11:31] LABS: Bedside Glucose 85 mg/dL (70-110)
[2021-05-04] MEDS: Lactated Ringers 1,000 ML 200 ML IV ×2 (13:54→18:54)
[2021-05-04 14:56] LABS: Bedside Glucose 88 mg/dL (70-110)
[2021-05-04 15:51] LABS: Bedside Glucose 72 mg/dL (70-110)
[2021-05-04 16:39] LABS: Chlamydia Trachomatis by PCR Negative (Negative); Neisserai gonorrhoeae by PCR Negative (Negative); Probe Check PASS; Sample Adequacy Control PASS; Specimen Processing Control PASS
[2021-05-04 16:56] LABS: Bedside Glucose 59 mg/dL (70-110)
[2021-05-04] MEDS: Oxytocin 30 units/NS 500 ml 30 UNITS/500 ML IV.SOLN IV (17:19)
[2021-05-04 17:55] LABS: Bedside Glucose 94 mg/dL (70-110)
[2021-05-04 19:25] LABS: Bedside Glucose 62 mg/dL (70-110)
[2021-05-04 19:56] LABS: Bedside Glucose 75 mg/dL (70-110)
[2021-05-04 20:51] LABS: Bedside Glucose 64 mg/dL (70-110)
[2021-05-04 22:05] LABS: Bedside Glucose 75 mg/dL (70-110)
[2021-05-04 23:16] LABS: Bedside Glucose 65 mg/dL (70-110)
[2021-05-04] MEDS: DiphenhydrAMINE 25 MG Capsule PO (23:39)
[2021-05-05] VITALS (32 sets, daily range): BP systolic 113–142; BP diastolic 56–88; PULSE 75–120; RESP 18; TEMP 36.2–37.9; O2SAT 93–100
[2021-05-05] MEDS: Lactated Ringers 1,000 ML 200 ML IV ×2 (00:04→04:58)
[2021-05-05] MEDS: fentaNYL-bupivacaine (epidural) 100 ML BAG EPIDURAL ×2 (00:05→04:59)
[2021-05-05 00:16] LABS: Bedside Glucose 98 mg/dL (70-110)
[2021-05-05 00:56] LABS: Bedside Glucose 76 mg/dL (70-110)
[2021-05-05 02:06] LABS: Bedside Glucose 72 mg/dL (70-110)
[2021-05-05 03:01] LABS: Bedside Glucose 61 mg/dL (70-110)
[2021-05-05] MEDS: Mag Hydrox/Al Hydrox/Simeth 30 ML UDC PO (05:07)
[2021-05-05] MEDS: Ondansetron 4 MG/2 ML Vial IV (05:30)
[2021-05-05] MEDS: Oxytocin 30 units/NS 500 ml 30 UNITS/500 ML IV.SOLN 334 UNITS IV (06:36)
--- NOTE | 2021-05-05 07:19 | EX.PCM.OBRPT ---
Maternal Data Information MJ Calculator Estimated Delivery Date Method Current WG Current Estimate 05/10/21 Manual 39w 2d Vaginal Delivery Findings Description of Procedure: Preoperative diagnosis: Term , maternal exhaustion Postop diagnosis: Term , maternal exhaustion, fourth degree midline perineal/rectal laceration Procedure: Forceps assisted vaginal delivery Surgeon: Magnus Rodas MD Anesthesia: Epidural EBL: 500 cc Complications: None Findings: Female in vertex position, ROP +2 station. Apgars 4/8. Fourth degree midline perineal/rectal laceration Consent: 26-year-old arrived at 39 weeks and 1 day on 05/04/2021 with SROM. Progressed to complete dilation with augmentation of Pitocin. Patient pushed for greater than 3 hours, found herself exhausted. Upon evaluation ROP position and +2 station noted. Pelvis felt to be adequate for vaginal delivery. Patient was comfortable with epidural anesthesia. Discussed forceps assisted vaginal delivery versus vacuum-assisted vaginal delivery versus section process and risk benefits alternatives explained including risk with operative vaginal delivery of maternal tissue injury and head injury. Patient states understanding and elects for forceps assisted vaginal delivery. All questions answered. Procedure: Patient had Marcum catheter placed. Curry forceps were opened and each blade was lubricated. Vaginal exam reconfirmed ROP position and +2 station. Phantom application of forceps was performed in front of the perineum. The handle of the left branch was held in the left hand and the tip of the blade was gently introduced into the left side of the vagina with the right hand. In a similar fashion the right blade was placed into the right side of the vagina. Biparietal application was confirmed, and the 2 branches were locked with ease. Gentle traction in the axis of the pelvis was applied in coordination with uterine contraction and maternal pushing effort. The handles of forceps were gradually elevated when the occiput is delivered under the pubic symphysis. The forceps were then disarticulated and removed. The head and shoulders were delivered with ease. Placenta was delivered via cord traction and fundal massage. IV oxytocin was initiated to facilitate uterine contractions. The cervix and vaginal wall were thoroughly examined. Fourth degree midline perineal/rectal laceration were noted. Rectal mucosa was reapproximated with 3-0 Vicryl rapide, interrupted sutures. External and internal anal sphincter muscles were reapproximated end-to-end using 3-0 Vicryl Rapide interrupted sutures. Remaining laceration was reapproximated with 2-0 Vicryl. Vaginal mucosa was reapproximated at the apex and repaired in a continuous running locked fashion to the level of the hymen. Perineal muscles were reapproximated in a continuous fashion. Perineal skin was reapproximated in a subcuticular fashion. Rectal exam was performed and rectal mucosa was intact, no defects noted. Good hemostasis was noted. The cervix and vaginal munoz were again thoroughly examined, no new findings. All counts correct x2. Patient tolerated the procedure well. Infant was examined after delivery. No visible lacerations were found.
[2021-05-05 07:35] LABS: Bedside Glucose 98 mg/dL (70-110)
[2021-05-05 07:35] LABS: Bedside Glucose 79 mg/dL (70-110)
[2021-05-05 07:35] LABS: Bedside Glucose 84 mg/dL (70-110)
[2021-05-05 08:11] LABS: Bedside Glucose 113 mg/dL (70-110)
[2021-05-05] MEDS: Senna/Docusate Sodium 1 Tablet PO ×2 (08:40→21:36)
[2021-05-05] MEDS: Ibuprofen 600 MG Tablet PO ×3 (08:40→21:30)
[2021-05-05] MEDS: Benzocaine/Lanolin/Aloe Vera 1 SPRAY EACH TOPICAL (09:30)
[2021-05-05] MEDS: Acetaminophen 500 MG Tablet 1000 MG PO ×2 (11:51→18:26)
--- NOTE | 2021-05-06 00:05 | NURSING ---
N taking over care of patient and infant at this time. Report received from Osmel STEWART
[2021-05-06] MEDS: Acetaminophen 500 MG Tablet 1000 MG PO ×2 (00:29→06:36)
[2021-05-06] MEDS: Ibuprofen 600 MG Tablet PO ×2 (03:31→09:48)
[2021-05-06 03:34] VITALS: BP 130/70; PULSE 82; RESP 16
[2021-05-06 06:46] LABS: Bedside Glucose 77 mg/dL (70-110)
[2021-05-06] MEDS: DiphenhydrAMINE 25 MG Capsule PO (07:49)
[2021-05-06 08:00] VITALS: BP 135/75; PULSE 89; RESP 16; TEMP 36.4
--- NOTE | 2021-05-06 08:03 | NURSING ---
pt c/o severe itching after drinking cranberry juice. The container was clearly marked cranberry. Requested Benedryl order from Dr. Alexys duarte and given.
--- NOTE | 2021-05-06 08:20 | PCM.DC.BLA ---
Discharge Summary Date of Admission: 05/04/21 Date of Discharge: 05/06/21 Summary: Patient arrived on 05/04/2021 for induction of labor for GDM A2. Patient progressed to complete dilation and pushed for greater than 3 hours. Noted to have maternal exhaustion, elected for forceps assisted vaginal delivery. 4 degree laceration noted and repaired. Otherwise normal recovery with stool softeners and sitz bath's. Pain well controlled on Tylenol and ibuprofen. Discharge home 05/06/2021 Physical Exam Const alert, oriented x3, no apparent distress, average body habitus, no limitations and healthy appearing Neck full ROM Resp normal respiratory effort, normal air movement, no retractions and no use of accessory muscles Extremity normal to inspection, full ROM, normal capillary refill, no joint enlargement and no clubbing, cyanosis or edema Neuro oriented x3, moves all extremities and no focal motor deficits Psych mental status grossly normal, thought process normal, cooperative, affect normal and speech normal Meaningful Use Info Meaningful Use Diagnoses (Choose all that apply): None applicable Discharge Plan Admission Admit Date/Time: 05/04/21 05:50 Primary Reason for Your Visit: Induction of labor Attending Provider: Magnus Rodas Primary Care Provider: Alfredo Barroso Instructions Additional Instructions / Restrictions: Weightbearing as tolerated. Resume intercourse in 6 to 8 weeks. May shower, may drive. Call your physician if fever greater than 101 chest pain shortness of breath increased bleeding. Follow-up 1 week Discharge Orders/Prescriptions Prescriptions: No Action PNV cmb#95-ferrous fumarate-FA 1 EACH tablet 1 ea PO DAILY RF: 0 iron 40 mg Capsule 15 mg PO DAILY RF: 0 glyburide 2.5 mg Tablet 5 mg PO BID RF: 0 Referrals / Follow Up: Alfredo Barroso MD [Primary Care Provider] - Disposition Disposition (needs filled in before D/C Order can be placed): Home, Self Care
--- NOTE | 2021-05-06 08:23 | PCM.PN.OB ---
Subjective Subjective No overnight complaints. Pain well controlled. Objective Data Objective Data Vital Signs: Vital Signs Temp Pulse Resp BP Pulse Ox 97.9 F 82 16 130/70 H 96 05/05/21 23:40 05/06/21 03:34 05/06/21 03:34 05/06/21 03:34 05/05/21 23:40 Oxygen Delivery Method Room Air Weight: 289 lb 3.203 oz Body Mass Index (BMI) 49.6 Intake & Output: Intake and Output for Last 24 Hours 05/04/21 05/05/21 05/06/21 23:59 23:59 23:59 Intake Total 3007.14 / 3007.14 2948.80 / 2948.80 Output Total 1400 / 1400 400 / 400 Balance 1607.14 / 1607.14 2548.80 / 2548.80 Lab / Micro Data Result Diagrams: 05/04/21 06:00 Labs: Laboratory Results - last 24 hr 05/06/21 06:35: POC Glucose 77 Micro: Microbiology 05/04/21 06:03 Mucosa - Nose SARS-CoV-2 Antigen (Rapid) - Final Physical Exam Const alert, oriented x3, no apparent distress, average body habitus, healthy appearing and well nourished HEENT normocephalic and moist oral mucous membranes Head and Scalp: atraumatic Face and Sinus: normal facial exam Neck full ROM Resp normal respiratory effort, no retractions and no use of accessory muscles Extremity normal to inspection, full ROM, no clubbing, cyanosis or edema, no calf tenderness and no pedal edema Neuro moves all extremities and no focal motor deficits Motor Exam: muscle tone normal throughout Psych mental status grossly normal, affect normal, speech normal and activity/motor behavior normal Assessment & Plan (1) : PLAN: day 1 status post forceps assisted vaginal delivery for maternal exhaustion. Fourth degree laceration, educated patient on stool softeners and perineal care. Overall pain well controlled on Tylenol and ibuprofen, will continue Tylenol and ibuprofen attempting to avoid opioids. Breast-feeding. Okay to discharge home today if okay with police commanding officer. To follow-up in 1 week
[2021-05-06] MEDS: Senna/Docusate Sodium 1 Tablet PO (09:52)
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
== END 2021-05-06 12:45 | disposition home or self-care (01) | DRG 542 ==
LOC: WPOUT 06:01 → WP 06:01
PROVIDERS: Admitting Provider Obstetrics & Gynecology; PCP Family Medicine; Referring Provider Obstetrics & Gynecology; Visit Provider Obstetrics & Gynecology
DX: O77.0 Labor and delivery complicated by meconium in amniotic fluid (principal); O99.214 Obesity complicating childbirth; E66.01 Morbid (severe) obesity due to excess calories; O70.3 Fourth degree perineal laceration during delivery; O24.425 Gestational diabetes mellitus in childbirth, controlled by oral hypoglycemic drugs; Z3A.39 39 weeks gestation of pregnancy; Z37.0 Single live birth
CPT/HCPCS: 59025; 59050; 82962; 84112; 85025; 86850; 86900; 86901; 87426; 87491; 87591; 99218; J7120; G0378; J2405

== ENCOUNTER 2021-05-10 23:05 | Emergency (ER) | payer MEDICAID, SELFPAY ==
[2021-05-04 06:08] VITALS: BMI 49.6
[2021-05-10 23:05] VITALS: BP 146/84; PULSE 84; RESP 16; TEMP 36.6; O2SAT 100; BMI 47.2
--- NOTE | 2021-05-10 23:44 | EX.ED.DYSGE1 ---
HPI History of Present Illness Chief Complaint: Complaint Informant: patient Onset/Context/Timing Onset: Today Context: Gradual Onset Timing: Continuous Quality: Pressure Location: Suprapubic Worsened by: Nothing Relieved by: Nothing Narrative Narrative: Patient presents with urinary retention that began approximately 12 hours prior to arrival. Patient is 5 days . Patient states she had a grade 4 vaginal tear during the delivery. Patient states that she noted some decreased urination and suprapubic pressure that has been getting worse today. Patient denies any fevers or chills. Patient denies any nausea or vomiting. Patient denies any dysuria recently. Patient denies any hematuria. Patient denies any chest pain or shortness of breath. PFSH [facility] Medical History ADHD (attention deficit hyperactivity disorder) Anxiety Gestational diabetes Post traumatic stress disorder (PTSD) Home Medications PNV cmb#95-ferrous fumarate-FA 1 ea PO DAILY 09/17/20 [History Last Taken 05/04/21] iron 15 mg PO DAILY 03/25/21 [History Last Taken 05/03/21] glyburide 5 mg PO BID 04/14/21 [History Last Taken 05/03/21] Allergy/AdvReac Type Severity Reaction Status Date / Time peanut Allergy Swelling Verified 04/28/21 18:32 cranberry AdvReac Rash Verified 05/04/21 19:10 mold AdvReac Other Verified 04/28/21 18:32 morphine AdvReac Chest Verified 05/04/21 06:10 tightness Surgical History History of gynecologic surgery Social History Smoking Status: Former smoker ROS ROS ED Constitutional Constitutional ED: Denies chills or fever(s) Eyes Eyes: Denies blurry vision or change in vision ENT ENT ED: Denies rhinorrhea or sore throat Cardiovascular Cardiovascular: Denies chest pain or palpitations Respiratory/Chest Respiratory/Chest: Denies cough or dyspnea Gastrointestinal Gastrointestinal: Reports abdominal pain; Denies nausea or vomiting Genitourinary Genitourinary ED: Reports other Details: Urinary retention ; Denies dysuria or hematuria Musculoskeletal Musculoskeletal: Denies back pain or neck pain Integumentary Denies abscess or rash Neurologic Neurologic: Denies headache(s) or weakness Allergic/Immunologic Allergic/Immunologic ED: Denies mouth swelling or urticaria EXAM Physical Exam Const Vital Signs: 05/10/21 23:05 05/11/21 01:05 Temperature 98 F Temperature Source Temporal Pulse Rate 84 83 Respiratory Rate 16 15 Blood Pressure 146/84 H 141/90 H Blood Pressure Mean 104 107 Pulse Ox 100 100 Oxygen Delivery Method Room Air Room Air Positive well nourished, well developed and obese General Appearance ED: well developed Nutritional Appearance: obese HEENT Reports moist mucous membranes Neck supple and no JVD Resp normal respiratory effort and clear to auscultation bilaterally Cardio regular rate, regular rhythm and no murmurs GI normal to inspection, nondistended, normoactive bowel sounds Palpation: soft and tender suprapubic; Negative for guarding or rebound tenderness present Extremity normal to inspection General Extremety ED: Negative for edema or tenderness General Extremity: Negative for edema Neuro oriented x3, CN's II-XII intact bilaterally and no sensory deficits noted Sensorium / Orientation: alert Motor Exam: strength 5/5 throughout Psych mental status grossly normal Skin no rashes or lesions noted MDM MDM MDM Narrative Medical decision making narrative: Marcum catheter was placed. There is good flow of urine. Patient is feeling better after this. CBC showed a mild anemia with a hemoglobin of 10.7 and hematocrit 34.5. White blood cell count was normal. Basic metabolic profile was normal. Urinalysis does not show any evidence of urinary tract infection. Patient was advised of her findings. Case was discussed with Dr. Alexys Thomas. She is agreeable with the plan. Patient was instructed to follow-up with her ELECTRIC METER REPAIRER HELPER in 2 to 3 days for catheter removal and recheck. Patient understood and was agreeable with the plan. All questions were answered. Lab Data Attestation: I reviewed the patient's lab results. Labs: Laboratory Results - last 24 hr 05/11/21 05/11/21 05/11/21 00:00 00:10 00:10 WBC 9.4 RBC 4.12 L Hgb 10.7 L Hct 34.6 L MCV 84.0 MCH 26.0 L MCHC 30.9 L RDW Std Deviation 45.6 H RDW Coeff of Wiliam 14.9 H Plt Count 387 MPV 8.4 Immature Gran % (Auto) 0.700 Neut % (Auto) 69.7 Lymph % (Auto) 21.6 Citrus % (Auto) 6.5 Eos % (Auto) 1.2 Baso % (Auto) 0.3 Absolute Neuts (auto) 6.5 Absolute Lymphs (auto) 2.02 Nucleated RBC % 0 Sodium 141 Potassium 3.4 L Chloride 110 H Carbon Dioxide 24.0 Anion Gap 7 BUN 9 Creatinine 0.55 Estim Creat Clear Calc 133.85 Est GFR (MDRD) Af Amer 173 Est GFR (MDRD) Non-Af 143 BUN/Creatinine Ratio 16.5 Glucose 80 Calcium 8.5 Urine Color Yellow Urine Clarity Clear Urine pH 6.5 Ur Specific [place] 1.015 Urine Protein 15 H Urine Glucose (UA) Normal Urine Ketones 5 H Urine Occult Blood Negative Urine Nitrite Negative Urine Bilirubin Negative Urine Urobilinogen Normal Ur Leukocyte Esterase Negative Urine RBC 0 SEEN Urine WBC 0 SEEN Ur Squamous Epith Cells 0 SEEN Urine Bacteria 0 SEEN Urine Mucus 0 SEEN Discharge Plan Triage Chief Complaint: Complaint ED Provider: Jayro Brooks Dx/Rx/DC Orders Clinical Impression: Acute urinary retention Instructions: ED Marcum Catheter, Care, ED Urinary Retention, Female Prescriptions: No Action PNV cmb#95-ferrous fumarate-FA 1 EACH tablet 1 ea PO DAILY RF: 0 iron 40 mg Capsule 15 mg PO DAILY RF: 0 glyburide 2.5 mg Tablet 5 mg PO BID RF: 0 Primary Care Provider: Alfredo Barroso Referrals: Alfredo Barroso MD [Primary Care Provider] - As Needed Myesha Castillo MD [STAFF PHYSICIAN] - 3-5 Days Disposition Disposition: Home, Self Care
[2021-05-11 00:24] LABS: Bacteria 0 SEEN /hpf (None Seen); Mucous, Urine 0 SEEN /hpf (<or=2+); Red Blood Cells-Urine 0 SEEN /hpf (0-5); Squamous Epithelial Cells - UA 0 SEEN /hpf (5-10); White Blood Cells 0 SEEN /hpf (0-5)
[2021-05-11 00:28] LABS: Absolute Lymphocyte Count 2.02 X10^3/uL (0.83-4.51); Absolute Neutrophil Count 6.5 X10^3/uL (2.0-7.7); Basophil# 0.03 X10^3/uL; Basophil% 0.3 % (0-1); Eosinophil# 0.11 X10^3/uL; Eosinophils% 1.2 % (0-5); Hematocrit 34.6 % (37-47); Hemoglobin 10.7 g/dL (12.0-15.0); Lymphocyte # 2.02 X10^3/ul (0.83-4.51); Lymphocyte % 21.6 % (19-41); Mean Corp Hgb Conc 30.9 g/dL (32-36); Mean Platelet Vol. 8.4 fl (6.2-12.0); Monocyte# 0.61 X10^3/uL; Monocyte% 6.5 % (0-10); NRBC Flagged by Analyzer 0 % (0-5); Neutrophil # 6.51 X10^3/uL (2.7-7.7); Neutrophil % 69.7 % (47-70); Platelet Count 387 K/mm3 (150-450); RBC Distribution Width CV 14.9 % (11.6-14.6); RBC Distribution Width SD 45.6 fl (35.1-43.9); Red Blood Count 4.12 M/mm3 (4.2-5.4); White Blood Count 9.4 K/mm3 (4.4-11.0)
[2021-05-11 00:30] LABS: Color, Urine Yellow (Yellow); Glucose, Dipstick Normal (Normal); Ketone-Dipstick 5 mg/dl (Negative); Leukocyte Esterase-Dipstick Negative /ul (Negative); Nitrite-Dipstick Negative (Negative); Occult Blood-Urine Negative /ul (Negative); Protein-Dipstick 15 mg/dl (Negative); Specific Gravity, Urine 1.015 (1.002-1.030); Urine Bilirubin Dipstick Negative (Negative); Urine Clarity Clear (Clear); Urine Urobilinogen Normal (Normal); Urine pH 6.5 (5.0 - 8.0)
[2021-05-11 00:42] LABS: Anion Gap 7 (5-15); BUN 9 mg/dL (7-18); BUN/Creat Ratio 16.5 RATIO (10-20); Calcium,Total 8.5 mg/dL (8.5-10.1); Chloride 110 mmol/L (98-107); Creatinine, Serum 0.55 mg/dL (0.55-1.02); EST Glomerular Filtration Rate 143 mL/min (>60); Est Glom Filt Rate - Afr Amer 173 mL/min (>60); Estimated Creatinine Clearance 133.85 ml/min; Glucose 80 mg/dL (74-106); Potassium 3.4 mmol/L (3.5-5.1); Sodium Level 141 mmol/L (136-145)
[2021-05-11 01:05] VITALS: BP 141/90; PULSE 83; RESP 15; O2SAT 100
[2021-05-11] MEDS: Acetaminophen 500 MG Tablet 1000 MG PO (01:21)
--- NOTE | 2021-05-11 01:43 | NURSING ---
fowler emptied. 1000 ml clear yellow urine noted. simón care done and leg bag attached. pt taught how to empty fowler bag @ home
[2021-05-11 02:11] VITALS: BP 141/90; PULSE 83; RESP 15; O2SAT 100
== END 2021-05-11 02:12 | disposition home or self-care (01) ==
PROVIDERS: Emergency Provider Emergency Medicine; PCP Family Medicine
DX: O90.89 Other complications of the puerperium, not elsewhere classified (principal); R33.9 Retention of urine, unspecified; E66.9 Obesity, unspecified; Z87.891 Personal history of nicotine dependence
CPT/HCPCS: 51702; 80048; 81001; 85025; 99285; A4216

== ENCOUNTER 2021-05-11 12:22 | Emergency (ER) | payer MEDICAID, SELFPAY ==
[2021-05-10 23:05] VITALS: BMI 47.2
[2021-05-11 12:23] VITALS: BP 141/84; PULSE 80; RESP 20; TEMP 36.9; O2SAT 98; BMI 47.1
--- NOTE | 2021-05-11 15:09 | EX.ED.DYSGE1 ---
HPI History of Present Illness Chief Complaint: Marcum C/O Informant: patient Onset/Context/Timing Onset: Today Narrative Narrative: Patient is currently 6 days . She had vaginal delivery. She was seen in the ER late last night secondary to urinary retention. Had a Marcum catheter placed. Patient presents back today stating that she noted some blood in her Marcum and decreased urine output. She did feel like there was urine escaping around the Marcum. PFSH PFSH Medical History ADHD (attention deficit hyperactivity disorder) Anxiety Gestational diabetes Post traumatic stress disorder (PTSD) Home Medications NK 05/11/21 [History Last Taken Unknown] Allergy/AdvReac Type Severity Reaction Status Date / Time peanut Allergy Swelling Verified 05/11/21 12:23 cranberry AdvReac Rash Verified 05/11/21 12:23 mold AdvReac Other Verified 05/11/21 12:23 morphine AdvReac Chest Verified 05/11/21 12:23 tightness Surgical History History of gynecologic surgery Social History Smoking Status: Former smoker ROS ROS ED Constitutional Constitutional ED: Denies chills or fever(s) Eyes Eyes: Denies change in vision ENT ENT ED: Denies sore throat Cardiovascular Cardiovascular: Denies chest pain Respiratory/Chest Respiratory/Chest: Denies cough or dyspnea Gastrointestinal Gastrointestinal: Denies abdominal pain, diarrhea, nausea or vomiting Genitourinary Genitourinary ED: Reports hematuria Musculoskeletal Musculoskeletal: Denies back pain Neurologic Neurologic: Denies headache(s) or weakness Psychiatric Psychiatric: Denies anxiety or depression EXAM Physical Exam Const Vital Signs: 05/11/21 12:23 Temperature 98.4 F Temperature Source Temporal Pulse Rate 80 Respiratory Rate 20 H Blood Pressure 141/84 H Blood Pressure Mean 103 Pulse Ox 98 Oxygen Delivery Method Room Air Positive well nourished and well developed General Appearance ED: well developed HEENT Reports normocephalic and head/scalp atraumatic Eyes PERRL and EOMs intact bilaterally Neck supple Chest Wall inspection of chest normal and palpation of chest normal Resp normal respiratory effort and clear to auscultation bilaterally Cardio regular rate and regular rhythm GI Palpation: soft and tender suprapubic Narrative: Marcum catheter in good position. No significant labial edema or erythema. Some postdelivery vaginal bleeding noted. Extremity normal to inspection Neuro oriented x3 and no sensory deficits noted Sensorium / Orientation: alert Motor Exam: strength 5/5 throughout Psych mental status grossly normal Skin no rashes or lesions noted [facility] Treatment and Re-Evaluation Comments:: Nursing staff irrigated the catheter. They initially put in 60 cc and got 60 back, however then did note increased urine output into the Marcum bag. Bladder scan was performed and did reveal just over 600 cc of urine. Given time the bladder has now drained with good urine output. Marcum care discussed with the patient. She'll be discharged home to follow-up with SUPERVISOR IN CIRCUIT TESTING as originally planned. Discharge Plan Triage Chief Complaint: Marcum C/O ED Provider: Marietta Lozano Dx/Rx/DC Orders Clinical Impression: Urinary retention, Marcum catheter problem Instructions: ED Marcum Catheter, Care Prescriptions: No Action NK RF: 0 Primary Care Provider: Alfredo Barroso Referrals: Alfredo Barroso MD [Primary Care Provider] - Myesha Castillo MD [STAFF PHYSICIAN] - 3-5 Days Disposition Disposition: Home, Self Care
[2021-05-11 15:29] VITALS: BP 132/88; PULSE 70; RESP 15
== END 2021-05-11 15:47 | disposition home or self-care (01) ==
PROVIDERS: Emergency Provider Emergency Medicine; PCP Family Medicine
DX: O90.89 Other complications of the puerperium, not elsewhere classified (principal); R33.9 Retention of urine, unspecified
CPT/HCPCS: 99283

== ENCOUNTER 2021-05-11 19:26 | Emergency (ER) | payer MEDICAID, SELFPAY ==
[2021-05-11 12:23] VITALS: BMI 47.1
[2021-05-11 19:27] VITALS: BP 127/60; PULSE 93; RESP 16; TEMP 36.8; O2SAT 95; BMI 47.7
--- NOTE | 2021-05-11 20:56 | EDS_ITS ---
HPI History of Present Illness Chief Complaint: General Illness Informant: patient Narrative Narrative: Patient is a 26-year-old female who presents to the emergency department for Marcum catheter issue. Patient states that she had complications with a vaginal 1 week ago. She has a colovaginal fistula. Yesterday she developed urinary retention and a catheter was placed. She developed hematuria and her catheter was not flowing this morning so they flushed it and she was doing well. She was discharged home. She states that she was struggling to have a bowel movement today with constipation and she feels like she might of pushed out the catheter as she started to have severe pain and blood started to come back in the catheter bag. She denies significant abdominal pain. She does have vaginal discomfort due to stool present. She denies any fevers or chills. [facility] Medical History ADHD (attention deficit hyperactivity disorder) Anxiety Gestational diabetes Post traumatic stress disorder (PTSD) Home Medications NK 05/11/21 [History Last Taken Unknown] Allergy/AdvReac Type Severity Reaction Status Date / Time peanut Allergy Swelling Verified 05/11/21 12:23 cranberry AdvReac Rash Verified 05/11/21 12:23 mold AdvReac Other Verified 05/11/21 12:23 morphine AdvReac Chest Verified 05/11/21 12:23 tightness Surgical History History of gynecologic surgery Social History Smoking Status: Former smoker ROS ROS ED Constitutional Constitutional ED: Denies chills or fever(s) Eyes Eyes: Denies change in vision ENT ENT ED: Denies epistaxis Cardiovascular Cardiovascular: Denies chest pain Respiratory/Chest Respiratory/Chest: Denies cough, dyspnea or dyspnea on exertion Gastrointestinal Gastrointestinal: Denies abdominal pain, diarrhea, nausea or vomiting Genitourinary Genitourinary ED: Reports hematuria and other Details: Vaginal pain ; Denies dysuria or urinary frequency Musculoskeletal Musculoskeletal: Denies back pain or neck pain Integumentary Denies rash Neurologic Neurologic: Denies dizziness, headache(s) or weakness EXAM Physical Exam Const Vital Signs: 05/11/21 19:27 Temperature 98.3 F Temperature Source Temporal Pulse Rate 93 Respiratory Rate 16 Blood Pressure 127/60 H Blood Pressure Mean 82 Pulse Ox 95 Oxygen Delivery Method Room Air Positive well nourished and well developed General Appearance ED: well developed and NAD HEENT Reports normocephalic, head/scalp atraumatic and moist mucous membranes Eyes PERRL and EOMs intact bilaterally Neck no lymphadenopathy and supple General: Negative for tenderness Chest Wall inspection of chest normal Resp normal respiratory effort Cardio regular rate and regular rhythm GI normal to inspection, nondistended, normoactive bowel sounds and non-tender Palpation: soft; Negative for guarding or rebound tenderness present Back/Spine no CVA tenderness Extremity normal to inspection General Extremety ED: Negative for edema or tenderness General Extremity: Negative for edema Neuro oriented x3, CN's II-XII intact bilaterally and no sensory deficits noted Sensorium / Orientation: alert Motor Exam: strength 5/5 throughout Psych mental status grossly normal Skin no rashes or lesions noted MDM MDM MDM Narrative Medical decision making narrative: Patient presents to the ED for only catheter issue. She states that there was blood in the catheter. She also believes that it was displaced. Patient has any significant pain so the catheter was removed on arrival. She is feeling better. Patient is hesitant to wanting the catheter put back in. She wants to try to urinate on her own so it does not need to be replaced. Patient states she is following with her PRINTING SUPPLIES SALES REPRESENTATIVE about the colovaginal fistula. At this time they are seeing if it heals up on its own without requiring surgery. I did review the lab work and urine from today. No evidence of infection. Throughout course of ED stay patient not able to pass any urine so she was agreeable with placing the Marcum catheter back. Urojet was applied initially patient tolerated this better. She will be discharged home in stable condition. She is given a referral for urology. Return precautions are reviewed. She understands and is agreeable this plan. All questions were answered. Discharge Plan Triage Chief Complaint: General Illness ED Provider: Cameron Wright Dx/Rx/DC Orders Clinical Impression: Marcum catheter problem, Urinary retention Instructions: ED Marcum Catheter, Care Prescriptions: No Action NK RF: 0 Primary Care Provider: Alfredo Barroso Referrals: Alfredo Barroso MD [Primary Care Provider] - Debbie Haynes MD [STAFF PHYSICIAN] - 2 Days Disposition Disposition: Home, Self Care Discharge Date/Time: 05/11/21 22:25
[2021-05-11] MEDS: Lidocaine Jelly 2% 20 ML Syringe (URO-JET) 20 APPLIC TOPICAL (21:50)
== END 2021-05-11 22:25 | disposition home or self-care (01) ==
PROVIDERS: Emergency Provider Emergency Medicine; PCP Family Medicine
DX: O90.89 Other complications of the puerperium, not elsewhere classified (principal); T83.028A Displacement of other urinary catheter, initial encounter; R33.9 Retention of urine, unspecified; Z87.891 Personal history of nicotine dependence
CPT/HCPCS: 51702; 99283; 99284; A4216

== ENCOUNTER → 2021-06-18 17:34 | Outpatient (CLI) | payer MEDICAID, SELFPAY ==
[2021-06-18 17:36] LABS: Bacteria 0 SEEN /hpf (None Seen); Mucous, Urine 0 SEEN /hpf (<or=2+); Red Blood Cells-Urine 0 SEEN /hpf (0-5); White Blood Cells 0 SEEN /hpf (0-5)
[2021-06-18 17:55] LABS: Absolute Neutrophil Count 9.6 X10^3/uL (2.0-7.7); Basophil# 0.02 X10^3/uL; Basophil% 0.2 % (0-1); Eosinophil# 0.02 X10^3/uL; Eosinophils% 0.2 % (0-5); Hematocrit 39.3 % (37-47); Hemoglobin 12.5 g/dL (12.0-15.0); Lymphocyte % 7.1 % (19-41); Mean Corp Hgb Conc 31.8 g/dL (32-36); Mean Corpuscular Hgb 26.2 pg (27.0-32.0); Mean Corpuscular Volume 82.2 fL (81-99); Mean Platelet Vol. 8.4 fl (6.2-12.0); Monocyte# 0.74 X10^3/uL; Monocyte% 6.6 % (0-10); NRBC Flagged by Analyzer 0 % (0-5); Neutrophil # 9.62 X10^3/uL (2.7-7.7); Neutrophil % 85.5 % (47-70); Platelet Count 345 K/mm3 (150-450); RBC Distribution Width CV 15.1 % (11.6-14.6); RBC Distribution Width SD 45.4 fl (35.1-43.9); Red Blood Count 4.78 M/mm3 (4.2-5.4); White Blood Count 11.3 K/mm3 (4.4-11.0)
[2021-06-18 17:59] LABS: Color, Urine Yellow (Yellow); Glucose, Dipstick Normal (Normal); Ketone-Dipstick Negative (Negative); Leukocyte Esterase-Dipstick 25 /ul (Negative); Nitrite-Dipstick Negative (Negative); Occult Blood-Urine Negative /ul (Negative); Protein-Dipstick 15 mg/dl (Negative); Urine Bilirubin Dipstick Negative (Negative); Urine Clarity Clear (Clear); Urine Urobilinogen Normal (Normal)
[2021-06-18 18:30] LABS: ALB/GLOB Ratio 0.9 RATIO (0.9-2.4); AST(SGOT) 10 U/L (15-37); Alanine Aminotransfer ALT/SGPT 22 U/L (13-56); Albumin, Serum 3.6 g/dL (3.2-5.0); Alkaline Phosphatase 96 U/L (45-117); Anion Gap 4 (5-15); BUN 9 mg/dL (7-18); BUN/Creat Ratio 15.8 RATIO (10-20); Calcium,Total 8.9 mg/dL (8.5-10.1); Chloride 108 mmol/L (98-107); Creatinine, Serum 0.57 mg/dL (0.55-1.02); EST Glomerular Filtration Rate 136 mL/min (>60); Est Glom Filt Rate - Afr Amer 164 mL/min (>60); Glucose 90 mg/dL (74-106); Potassium 3.7 mmol/L (3.5-5.1); Protein, Total 7.6 g/dL (6.4-8.2); Sodium Level 138 mmol/L (136-145)
[2021-06-18 18:33] LABS: Squamous Epithelial Cells - UA 0-5 SEEN /hpf (5-10)
[2021-06-18 19:18] LABS: LDH 133 U/L (84-246)
== END ==
PROVIDERS: PCP Family Medicine; Visit Provider Obstetrics & Gynecology
DX: N30.00 Acute cystitis without hematuria (principal)
CPT/HCPCS: 36415; 80053; 81001; 83615; 85025; 87086

== ENCOUNTER 2021-06-18 19:43 | Inpatient (IN) | payer MEDICAID, SELFPAY ==
[2021-06-18 18:24] VITALS: BMI 42.9
[2021-06-18 19:05] VITALS: BP 120/53; PULSE 102; RESP 18; TEMP 36.9; O2SAT 100
[2021-06-18] MEDS: metroNIDAZOLE 500 MG/100 ML BAG 100 MG IV (21:15)
[2021-06-18] MEDS: HYDROmorphone 0.5 MG/0.5 ML SYRINGE IV (21:30)
[2021-06-18 21:48] LABS: Lactic Acid 1.1 mmol/L (0.4-1.9)
--- NOTE | 2021-06-18 22:17 | PCM.HP.BLA ---
Assessment & Plan Assessment/Plan (1) Pyelonephritis: (2) Endometritis: (3) Fever:
--- NOTE | 2021-06-18 22:20 | PCM.HP.STD ---
HPI - General General Date of Admission: 06/18/21 HPI Narrative CARLOS CHAVEZ, is a 26 F who presents c/o severe abdominal pain and with uterine pressure on urination. She had abdominal and pelvic tenderness with Tm 101.3 with rigors in the office. She is s/p forceps assisted vaginal delivery on 05/05/21 complicated by 4th degree perineal laceration with fistula formation and dehiscence. She underwent debridement and repair on 05/16/21 at [facility] by Dr. Ramirez. She was seen on 05/24/21 post-op with c/o painfulness and again on 06/05/21 with concern for infection and started on Flagyl/Augmentin outpatient. She was seen on 06/08/21 in the [facility] ER with c/o lower abdominal pain and vaginal discharge and diagnosed with acute cystitis with suprapubic tenderness. GC/CT and vaginitis NAAT were negative at that time. No urine culture resulted. She had a CT A/P demonstrating prominent endometrial canal likely related to the menstrual cycle phase and no evidence of infection or inflammatory changes. She was given IV gentamicin x 1 and discharged to home to continue Augmentin/Flagyl, which she completed last week. She notes improvement of pelvic pain approximately 2 days after completing the antibiotics. She was able to resume intercourse with mild discomfort and no precipitation of pain about 3 days ago. She notes 2 days ago beginning with lower abdominal pain again. Today with chills and subjective fever. No nausea, vomiting, dysuria, urinary frequency, hematuria, no diarrhea or constipation. + low back pain. [facility] Medical History (Updated 06/18/21 @ 22:[address] Myesha Thomas MD) ADHD (attention deficit hyperactivity disorder) Anxiety Chronic pain Gestational diabetes Post traumatic stress disorder (PTSD) Home Medications polyethylene glycol 3350 [Miralax] 17 g PO DAILY 06/18/21 [History Last Taken Unknown] Allergy/AdvReac Type Severity Reaction Status Date / Time peanut Allergy Swelling Verified 05/11/21 12:23 cranberry AdvReac Rash Verified 05/11/21 12:23 mold AdvReac Other Verified 05/11/21 12:23 morphine AdvReac Chest Verified 05/11/21 12:23 tightness Family History (Updated 06/18/21 @ 22:[address] Myesha Thomas MD) Aunt Cancer maternal aunt - uterine/cervical ca Surgical History (Updated 06/18/21 @ 22:[address] Myesha Thomas MD) Dehiscence of perineal wound Fourth degree perineal laceration History of gynecologic surgery Social History Smoking Status: Former smoker ROS ROS Narrative see HPI Vital Signs Vital Signs Vital Signs: 06/18/21 18:45 06/18/21 19:05 Temperature 98.4 F Temperature Source Oral Pulse Rate 102 H Respiratory Rate 18 Respiratory Effort Normal Respiratory Depth Normal Respiratory Pattern Normal Blood Pressure 120/53 L Blood Pressure Mean 75 Blood Pressure Source Monitor Blood Pressure Position Semi-Fowlers Blood Pressure Location Left Arm Pulse Ox 100 Oxygen Delivery Method Room Air Room Air Weight Weight: 113.443 kg Body Mass Index (BMI) 42.9 Physical Exam Const alert, oriented x3 and no apparent distress HEENT normocephalic Resp normal respiratory effort, normal air movement and clear to auscultation bilaterally Cardio regular rate and regular rhythm GI normal to inspection, nondistended, normoactive bowel sounds, soft to palpation and non-distended GI Narrative: +suprapubic tenderness Narrative: +bladder/trigonal tenderness, + uterine tenderness + L. CVA tenderness Results Lab / Micro Data Labs: Laboratory Results - last 24 hr 06/18/21 20:30: Lactic Acid 1.1 06/18/21 20:30: Blood Type A POSITIVE, Antibody Screen NEGATIVE 06/18/21 1726: WBC 11.3/ Hgb 12.5/Hct 39.3/MCV 82.2/MCH 26.2/MCHC 31.8/Ly% 7.1/Plt 345/NEUT% 85.5/ABS NEUT 9.6 06/18/21 1725: AST 10, ALT 22, ALB 3.6, ALK P 96, CL 108, CO2 26, GLU 90, Cr 0.57, BUN/Cr 15.8, GLOB 4.0, Tbili 0.9, Na 138, K 3.7, TProt 7.6 06/18/21 1726: Urinalysis SG 1.020, 0 bact, 0 rbc, 0-5 epi, 0 mucus, 0 wbc Micro: Microbiology 06/18/21 20:35 Nasal Secretion SARS-CoV-2 Antigen (Rapid) - Final Assessment & Plan Assessment/Plan (1) Fever: (2) Endometritis: (3) Pyelonephritis: PLAN: Lactate wnl Blood cultures sent Zosyn/Crista Workmannox for DVT PPX Pain management prn consultation - pt pumping/
[2021-06-18] MEDS: 0.9% Saline Lock 10 ML Syringe IV (22:55)
[2021-06-18] MEDS: Zolpidem Tartrate 5 MG Tablet PO (23:30)
[2021-06-18] MEDS: 0.9% Normal Saline 1,000 ML 125 ML IV (23:31)
[2021-06-19] VITALS (7 sets, daily range): BP systolic 107–124; BP diastolic 53–66; PULSE 68–87; RESP 16–18; TEMP 36.2–38.2; O2SAT 96–97
[2021-06-19] MEDS: HYDROmorphone 0.5 MG/0.5 ML SYRINGE IV ×7 (01:48→23:03)
[2021-06-19] MEDS: 0.9% Saline Lock 10 ML Syringe IV ×5 (01:49→15:53)
[2021-06-19] MEDS: metroNIDAZOLE 500 MG/100 ML BAG 100 MG IV ×3 (05:00→21:29)
[2021-06-19] MEDS: Acetaminophen 500 MG Tablet PO ×2 (05:00→15:59)
[2021-06-19] MEDS: 0.9% Normal Saline 1,000 ML 125 ML IV ×3 (05:00→21:30)
[2021-06-19 06:33] LABS: Absolute Neutrophil Count 6.3 X10^3/uL (2.0-7.7); Basophil# 0.01 X10^3/uL; Basophil% 0.1 % (0-1); Eosinophil# 0.01 X10^3/uL; Eosinophils% 0.1 % (0-5); Hematocrit 35.5 % (37-47); Hemoglobin 11.2 g/dL (12.0-15.0); Lymphocyte % 13.4 % (19-41); Mean Corp Hgb Conc 31.5 g/dL (32-36); Mean Corpuscular Hgb 26.2 pg (27.0-32.0); Mean Corpuscular Volume 82.9 fL (81-99); Mean Platelet Vol. 8.5 fl (6.2-12.0); Monocyte# 0.68 X10^3/uL; Monocyte% 8.3 % (0-10); NRBC Flagged by Analyzer 0 % (0-5); Neutrophil # 6.34 X10^3/uL (2.7-7.7); Neutrophil % 77.5 % (47-70); Platelet Count 280 K/mm3 (150-450); RBC Distribution Width CV 15.2 % (11.6-14.6); RBC Distribution Width SD 46.8 fl (35.1-43.9); Red Blood Count 4.28 M/mm3 (4.2-5.4); White Blood Count 8.2 K/mm3 (4.4-11.0)
[2021-06-19] MEDS: Enoxaparin 40 MG/0.4 ML Syringe SC (06:40)
[2021-06-19 08:19] LABS: Anion Gap 5 (5-15); BUN 5 mg/dL (7-18); BUN/Creat Ratio 8.9 RATIO (10-20); Calcium,Total 7.8 mg/dL (8.5-10.1); Chloride 108 mmol/L (98-107); Creatinine, Serum 0.56 mg/dL (0.55-1.02); EST Glomerular Filtration Rate 138 mL/min (>60); Est Glom Filt Rate - Afr Amer 167 mL/min (>60); Estimated Creatinine Clearance 131.46 ml/min; Glucose 99 mg/dL (74-106); Potassium 3.3 mmol/L (3.5-5.1); Sodium Level 138 mmol/L (136-145)
--- NOTE | 2021-06-19 08:26 | PCM.PN.OB ---
Subjective Subjective Had a fever overnight. Reports pain improved with IV pain medication. + nausea, no vomiting. OOB. Objective Data Objective Data Vital Signs: Vital Signs Temp Pulse Resp BP Pulse Ox 100.8 F H 87 16 124/54 H 97 06/19/21 00:24 06/19/21 00:24 06/19/21 00:24 06/19/21 00:24 06/19/21 00:24 Oxygen Delivery Method Room Air Weight: 113.443 kg Body Mass Index (BMI) 42.9 Intake & Output: Intake and Output for Last 24 Hours 06/17/21 06/18/21 06/19/21 23:59 23:59 23:59 Intake Total 100 / 100 1335.42 / 1335.42 Balance 100 / 100 1335.42 / 1335.42 Lab / Micro Data Result Diagrams: 06/20/21 05:46 06/20/21 05:46 Labs: Laboratory Results - last 24 hr 06/18/21 20:30: Lactic Acid 1.1 06/18/21 20:30: Blood Type A POSITIVE, Antibody Screen NEGATIVE 06/19/21 06:20: WBC 8.2, RBC 4.28, Hgb 11.2 L, Hct 35.5 L, MCV 82.9, MCH 26.2 L, MCHC 31.5 L, RDW Std Deviation 46.8 H, RDW Coeff of Wiliam 15.2 H, Plt Count 280, MPV 8.5, Immature Gran % (Auto) 0.600, Neut % (Auto) 77.5 H, Lymph % (Auto) 13.4 L, [place] % (Auto) 8.3, Eos % (Auto) 0.1, Baso % (Auto) 0.1, Absolute Neuts (auto) 6.3, Absolute Lymphs (auto) 1.10, Nucleated RBC % 0 06/19/21 06:20: Sodium 138, Potassium 3.3 L, Chloride 108 H, Carbon Dioxide 25.0, Anion Gap 5, BUN 5 L, Creatinine 0.56, Estim Creat Clear Calc 131.46, Est GFR (MDRD) Af Amer 167, Est GFR (MDRD) Non-Af 138, BUN/Creatinine Ratio 8.9 L, Glucose 99, Calcium 7.8 L Micro: Microbiology 06/18/21 20:35 Nasal Secretion SARS-CoV-2 Antigen (Rapid) - Final Physical Exam Const alert, oriented x3 and no apparent distress General Appearance: cooperative and comfortable Resp normal respiratory effort, normal air movement and clear to auscultation bilaterally Cardio regular rate and regular rhythm GI soft to palpation, non-distended and no masses GI Narrative: +lower abdominal, +suprapubic tenderness Extremity normal to inspection, no calf tenderness and no pedal edema Assessment & Plan (1) support offered: PLAN: consultation (2) Fever: QUALIFIERS: Fever type: unspecified Qualified Code(s): R50.9 - Fever, unspecified PLAN: Zosyn/Flagyl Leukocytosis improving Blood cultures pending (3) Endometritis: (4) Pyelonephritis: (5) Hypokalemia: PLAN: Replete PO
[2021-06-19] MEDS: Ondansetron 4 MG/2 ML Vial IV ×2 (08:49→19:46)
--- NOTE | 2021-06-19 10:18 | NURSING ---
Went to see mother today at 1000 am Mother had been latching and feeding her baby until admitted to hospital. Mother states nursing had been going well. Mother has been pumping and encouraged to continue to pump every 3 hours during the day for at least 15-20 min and not longer then one 4 hours stretch at night. Discussed with mother the importance of keeping her hormone level up with the pumping stimulation and hand massage with that pumping to keep her milk supply coming. Article from [email or web address] given and mother encouraged.
[2021-06-19] MEDS: Famotidine 20 MG Tablet PO (10:24)
[2021-06-19] MEDS: Potassium Chloride Oral Tablet 20 MEQ PO ×2 (10:24→17:05)
[2021-06-19] MEDS: Polyethylene Glycol 3350 17 GM PACKET PO (10:24)
--- NOTE | 2021-06-19 17:30 | PN_ITS ---
Progress Note Called earlier in day 06/19 to evaluate patient for c/o passage of stool per vagina. I arrived to room at approximately 1700h on 06/19. Patient reported stool per vagina when wiping after voiding on more than 1 occasion today. She has hx 4th degree perineal laceration repair following forceps assisted vaginal delivery at [facility] complicated by dehiscence and repeat repair by Dr. Ramirez at [facility]. On exam there is serous drainage with vaginal discharge. No odor, no swelling. Repair is approximated well w/o visual separation and no palpable separation. Cannot r/o small fistula however. At this time, no evidence of infection and patient reports loose stool 1-2 times daily on Miralax. Thus, will continue to observe with plan with plan for more extensive office exam once pelvic inflammation improved.
--- NOTE | 2021-06-19 19:34 | PCS.PANDOC ---
PANDEMIC DOCUMENTATION INITIATED: Date: 05/27/2021 Time: 190
[2021-06-19] MEDS: Zolpidem Tartrate 5 MG Tablet PO (23:03)
[2021-06-20] MEDS: HYDROmorphone 0.5 MG/0.5 ML SYRINGE IV ×3 (02:16→09:00)
[2021-06-20 02:19] VITALS: BP 112/64; PULSE 95; RESP 18; TEMP 36.9; O2SAT 98
[2021-06-20] MEDS: 0.9% Normal Saline 1,000 ML 125 ML IV ×2 (05:17→23:03)
[2021-06-20] MEDS: metroNIDAZOLE 500 MG/100 ML BAG 100 MG IV ×2 (05:18→14:46)
[2021-06-20] MEDS: Enoxaparin 40 MG/0.4 ML Syringe SC (05:20)
[2021-06-20 05:56] LABS: Absolute Neutrophil Count 4.8 X10^3/uL (2.0-7.7); Basophil# 0.04 X10^3/uL; Basophil% 0.5 % (0-1); Eosinophil# 0.11 X10^3/uL; Eosinophils% 1.5 % (0-5); Hematocrit 34.2 % (37-47); Hemoglobin 10.7 g/dL (12.0-15.0); Mean Corp Hgb Conc 31.3 g/dL (32-36); Mean Corpuscular Hgb 26.4 pg (27.0-32.0); Mean Corpuscular Volume 84.4 fL (81-99); Mean Platelet Vol. 8.3 fl (6.2-12.0); Monocyte# 0.71 X10^3/uL; Monocyte% 9.6 % (0-10); NRBC Flagged by Analyzer 0 % (0-5); Neutrophil # 4.82 X10^3/uL (2.7-7.7); Neutrophil % 65.1 % (47-70); Platelet Count 259 K/mm3 (150-450); RBC Distribution Width SD 46.6 fl (35.1-43.9); Red Blood Count 4.05 M/mm3 (4.2-5.4); White Blood Count 7.4 K/mm3 (4.4-11.0)
[2021-06-20 06:25] LABS: Anion Gap 5 (5-15); BUN 5 mg/dL (7-18); BUN/Creat Ratio 8.7 RATIO (10-20); Calcium,Total 8.1 mg/dL (8.5-10.1); Chloride 110 mmol/L (98-107); Creatinine, Serum 0.58 mg/dL (0.55-1.02); EST Glomerular Filtration Rate 135 mL/min (>60); Est Glom Filt Rate - Afr Amer 163 mL/min (>60); Estimated Creatinine Clearance 126.93 ml/min; Glucose 90 mg/dL (74-106); Potassium 3.9 mmol/L (3.5-5.1); Sodium Level 138 mmol/L (136-145)
[2021-06-20] MEDS: Ketorolac 10 MG Tablet PO ×2 (07:17→16:03)
--- NOTE | 2021-06-20 08:54 | US_ITS ---
STUDY: RENAL ULTRASOUND - COMPLETE REASON FOR EXAM: Female, 26 years old. Persistent CVA tenderness -- on antibiotics for pyelonephritis TECHNIQUE: Ultrasound evaluation of the kidneys was performed with real-time and static martinez-scale imaging. COMPARISON: None. FINDINGS: RIGHT KIDNEY: Normal location of the right kidney, which is normal in size. The right kidney measures 12.7 cm x 5.7 cm x 4.8 cm. There is a normal cortex of the right kidney. The renal cortex measures 1.4 cm. There is no right renal mass or cyst. There are no right renal calculi. There is an extra-renal pelvis of the right kidney. There is no distention of the renal calyces. DISTAL RIGHT URETER: There is non-visualization of the distal right ureter. There is no demonstrated right ureterovesical junction calculus. There is a visualized right ureteral jet. LEFT KIDNEY: Normal location of the left kidney, which is normal in size. The left kidney measures 12.1 cm x 5.4 cm x 5.5 cm. There is a normal cortex of the left kidney. The renal cortex measures 2.0 cm. There is no left renal mass or cyst. There are no left renal calculi. There is mild hydronephrosis of the left kidney. DISTAL LEFT URETER: There is non-visualization of the distal left ureter. There is no demonstrated left ureterovesical junction calculus. There is a visualized left ureteral jet. BLADDER: The distended urinary bladder has a volume of 156 ml. The empty urinary bladder has a volume of 33 ml. There is a normal wall thickness of the distended urinary bladder. There is no demonstrated mass within the urinary bladder. There are no demonstrated bladder calculi. Incidental note is made of a 3 cm x 2.7 cm x 2.6 cm right ovarian cyst. US/Kidney and Bladder IMPRESSION: Mild degree of left hydronephrosis. Electronically Signed: Yaya Soto MD at 13:27 EDT , Service support ,
--- NOTE | 2021-06-20 09:00 | PCM.PN.OB ---
Subjective Subjective Reports lower abdominal pain improved however dysuria persists. Now has pain in the upper belly. She also has continued back pain. Denies fever, chills. Occasional nausea. No vomiting, has been able to tolerate p.o. regular diet. Patient reports loose stool with each void as well as 5 watery, foul-smelling loose stools overnight. Continues to complain of stool per vagina. Objective Data Objective Data Vital Signs: Vital Signs Temp Pulse Resp BP Pulse Ox 98.4 F 66 16 121/71 H 99 06/20/21 16:00 06/20/21 16:00 06/20/21 16:00 06/20/21 16:00 06/20/21 16:00 Oxygen Delivery Method Room Air Weight: 113.443 kg Body Mass Index (BMI) 42.9 Intake & Output: Intake and Output for Last 24 Hours 06/18/21 06/19/21 06/20/21 23:59 23:59 23:59 Intake Total 100 / 100 4594.59 / 4594.59 2817.09 / 2817.09 Output Total 850 / 850 3 / 3 Balance 100 / 100 3744.59 / 3744.59 2814.09 / 2814.09 Lab / Micro Data Result Diagrams: 06/20/21 05:46 06/20/21 05:46 Labs: Laboratory Results - last 24 hr 06/20/21 05:46: WBC 7.4, RBC 4.05 L, Hgb 10.7 L, Hct 34.2 L, MCV 84.4, MCH 26.4 L, MCHC 31.3 L, RDW Std Deviation 46.6 H, RDW Coeff of Wiliam 15.0 H, Plt Count 259, MPV 8.3, Immature Gran % (Auto) 0.300, Neut % (Auto) 65.1, Lymph % (Auto) 23.0, [place] % (Auto) 9.6, Eos % (Auto) 1.5, Baso % (Auto) 0.5, Absolute Neuts (auto) 4.8, Absolute Lymphs (auto) 1.70, Nucleated RBC % 0 06/20/21 05:46: Sodium 138, Potassium 3.9, Chloride 110 H, Carbon Dioxide 23.0, Anion Gap 5, BUN 5 L, Creatinine 0.58, Estim Creat Clear Calc 126.93, Est GFR (MDRD) Af Amer 163, Est GFR (MDRD) Non-Af 135, BUN/Creatinine Ratio 8.7 L, Glucose 90, Calcium 8.1 L 06/20/21 05:46: Magnesium 1.9 06/20/21 11:55: Miscellaneous Test Cancelled Micro: Microbiology 06/20/21 11:55 Stool C. difficile GDH Antigen & Toxins - Final 06/20/21 11:55 Stool C. difficile DNA Amplification - Final 06/18/21 20:35 Nasal Secretion SARS-CoV-2 Antigen (Rapid) - Final Radiography Diagnostic Testing: Radiology Impression Renal Ultrasound 06/20/21 08:54 IMPRESSION: Mild degree of left hydronephrosis. Electronically Signed: Yaya Soto MD at 13:27 EDT , Service support , Physical Exam Const alert, oriented x3 and no apparent distress General Appearance: cooperative and comfortable HEENT normocephalic Resp normal respiratory effort, normal air movement and clear to auscultation bilaterally Cardio regular rate, regular rhythm, S1 normal heart sound, S2 normal heart sound and no murmurs GI normal to inspection, nondistended, normoactive bowel sounds, soft to palpation, non-distended and no masses GI Narrative: Suprapubic tenderness resolved Narrative: Left CVA tenderness persists Extremity no calf tenderness and no pedal edema Assessment & Plan (1) Hypokalemia: PLAN: Resolved (2) support offered: PLAN: Pumping consultation ongoing (3) Fever: QUALIFIERS: Fever type: unspecified Qualified Code(s): R50.9 - Fever, unspecified (4) Endometritis: (5) Pyelonephritis: PLAN: Suprapubic pain tenderness however left CVA tenderness persist. Renal ultrasound ordered. Pyridium for dysuria (6) Diarrhea: QUALIFIERS: Diarrhea type: presumed infectious Qualified Code(s): R19.7 - Diarrhea, unspecified PLAN: Rule out C. difficile colitis
[2021-06-20 09:12] VITALS: BP 114/50; PULSE 65; RESP 12; TEMP 36.4
[2021-06-20] MEDS: Famotidine 20 MG Tablet PO (09:12)
[2021-06-20] MEDS: Phenazopyridine 95 MG Tablet 190 MG PO ×2 (11:57→21:46)
--- NOTE | 2021-06-20 12:05 | CASEMGMT ---
RN NIC Face to Face with patient for initial transition planning/care coordination assessment. RN CM introduced self and role at [facility]. Patient lying in bed, alert and oriented. Patient willing to participate in assessment and is able to answer all questions appropriately. Care providers, pharmacy, and demographics verified. Patient wishes to discharge home, denies need for home health at this time. Patient states she has no further needs or concerns at this time. CM to follow for discharge planning needs that may arise. PCP: Dharmesh Specialists: DINORAH Cardenas [facility] Insurance: [email or web address] Prescription Benefit: yes Living Will/HPOA: none LNOK: Living Arrangements: Patient lives with in a first floor apartment with no steps to enter. Patient states she is independent at home. Transportation: self/ DME/HHC: Patient states she has shower chair and grab bars at home. Patient denies previous HHC Disposition Plan: Patient to discharge home with family support and follow-up plans in place. Vianney GARDINER, RN, CM
[2021-06-20] MEDS: 0.9% Saline Lock 10 ML Syringe IV ×2 (14:44→22:57)
[2021-06-20] MEDS: Ondansetron 4 MG/2 ML Vial IV ×2 (14:44→22:56)
[2021-06-20 16:00] VITALS: BP 121/71; PULSE 66; RESP 16; TEMP 36.9; O2SAT 99
[2021-06-20] MEDS: oxyCODONE 5 MG Tablet PO ×3 (16:18→23:02)
--- NOTE | 2021-06-20 16:53 | PCM.PN.HOSP ---
Documented by User: Sandhya Ding NP, SENIOR SOFTWARE QA ANALYST-C 06/20/21 17:13 Subjective Subjective Patient seen and examined. Patient aggressively washing her hands in the bathroom, states she is concerned about bacteria. Noted to be ambulating barefoot in the room. Patient reports liquid stool with each episode of urination, reports 10-12 episodes of diarrhea per day. She reports rectal discomfort related to frequent diarrhea. She reports fever is improved. Patient reports pelvic discomfort however generalized abdominal pain as well. Patient voices multiple concerns including breast-feeding her and transmitting C. difficile to . Objective Data Objective Data Vital Signs: Vital Signs Temp Pulse Resp BP Pulse Ox 97.6 F L 65 12 114/50 L 98 06/20/21 09:12 06/20/21 09:12 06/20/21 09:12 06/20/21 09:12 06/20/21 02:19 Oxygen Delivery Method Room Air Weight: 250 lb 1.6 oz Body Mass Index (BMI) 42.9 Intake & Output: Intake and Output for Last 24 Hours 06/18/21 06/19/21 06/20/21 23:59 23:59 23:59 Intake Total 100 / 100 4594.59 / 4594.59 1689.59 / 1689.59 Output Total 850 / 850 Balance 100 / 100 3744.59 / 3744.59 1689.59 / 1689.59 Lab / Micro Data Result Diagrams: 06/20/21 05:46 06/20/21 05:46 Labs: Laboratory Results - last 24 hr 06/20/21 05:46: WBC 7.4, RBC 4.05 L, Hgb 10.7 L, Hct 34.2 L, MCV 84.4, MCH 26.4 L, MCHC 31.3 L, RDW Std Deviation 46.6 H, RDW Coeff of Wiliam 15.0 H, Plt Count 259, MPV 8.3, Immature Gran % (Auto) 0.300, Neut % (Auto) 65.1, Lymph % (Auto) 23.0, [place] % (Auto) 9.6, Eos % (Auto) 1.5, Baso % (Auto) 0.5, Absolute Neuts (auto) 4.8, Absolute Lymphs (auto) 1.70, Nucleated RBC % 0 06/20/21 05:46: Sodium 138, Potassium 3.9, Chloride 110 H, Carbon Dioxide 23.0, Anion Gap 5, BUN 5 L, Creatinine 0.58, Estim Creat Clear Calc 126.93, Est GFR (MDRD) Af Amer 163, Est GFR (MDRD) Non-Af 135, BUN/Creatinine Ratio 8.7 L, Glucose 90, Calcium 8.1 L 06/20/21 11:55: Miscellaneous Test Cancelled Micro: Microbiology 06/20/21 11:55 Stool C. difficile GDH Antigen & Toxins - Final 06/20/21 11:55 Stool C. difficile DNA Amplification - Final 06/18/21 20:35 Nasal Secretion SARS-CoV-2 Antigen (Rapid) - Final Radiography Diagnostic Testing: Radiology Impression Renal Ultrasound 06/20/21 08:54 IMPRESSION: Mild degree of left hydronephrosis. Electronically Signed: Yaya Soto MD at 13:27 EDT , Service support , Physical Exam Const alert, oriented x3 and no apparent distress Orientation / Consciousness: awake, oriented to person, oriented to place and oriented to time Nutritional Appearance: obese HEENT normocephalic and moist oral mucous membranes Eyes PERRL, EOMs intact bilaterally and conjunctivae normal Neck no lymphadenopathy Resp normal respiratory effort and clear to auscultation bilaterally Cardio regular rate, regular rhythm and no murmurs Peripheral Pulses: pulses 2+ throughout GI normal to inspection, nondistended, normoactive bowel sounds and non-distended Palpation: tender other (generalized tenderness) Extremity normal to inspection Skin no rashes or lesions noted Lesions: no lesions Rashes: no rashes Trauma: no lacerations or abrasions Neuro CN's II-XII intact bilaterally, no focal motor deficits, no sensory deficits noted and deep tendon reflexes 2+ bilaterally Psych mental status grossly normal and affect normal Assessment & Plan Assessment/Plan (1) C. difficile diarrhea: PLAN: 1. Acute cdiff- initiated on oral Vanc. IV fluids. Check CMP in a.m. On lactobacillus. 2. Pelvic pain, fever- UTI ruled out. Recent antibiotic treatment per OBGYN. Possibly secondary to #1. If not improvement in symptoms following cdiff treatment, recommend abdominal/pelvic imaging. Urology consulted per OBGYN. 3. History of vaginal delivery 05/05/21- complicated by 4th degree perineal laceration with fistula formation and dehiscence- management per COMPUTER TECHNICAL SPECIALIST. 4. Obesity- encouraged diet and lifestyle modifications. DVT prophylaxis- Lovenox sc This patient was seen by ERICA Balderas under the supervision of Dr. Ge. Documented by User: Dr. Jennifer Ge MD 06/20/21 17:42 Objective Data Lab / Micro Data Result Diagrams: 06/20/21 05:46 06/20/21 05:46
[2021-06-20 17:24] LABS: Magnesium 1.9 mg/dL (1.6-2.6)
[2021-06-20] MEDS: Vancomycin HCl 250 MG Capsule 500 MG PO ×2 (18:11→23:31)
[2021-06-20 21:37] VITALS: BP 118/60; PULSE 69; RESP 18; TEMP 36.7; O2SAT 99
[2021-06-20] MEDS: metroNIDAZOLE 500 MG Tablet PO (21:47)
[2021-06-20] MEDS: Doxycycline 100 MG CAPSULE PO (21:47)
[2021-06-20] MEDS: Zolpidem Tartrate 5 MG Tablet PO (23:32)
[2021-06-20 23:40] VITALS: BP 133/69; PULSE 68; RESP 18; TEMP 37; O2SAT 98
[2021-06-21 05:28] VITALS: BP 122/70; PULSE 77; RESP 16; TEMP 36.9; O2SAT 95
[2021-06-21] MEDS: metroNIDAZOLE 500 MG Tablet PO ×2 (05:35→14:33)
[2021-06-21] MEDS: Vancomycin HCl 250 MG Capsule 500 MG PO (05:35)
[2021-06-21] MEDS: Phenazopyridine 95 MG Tablet 190 MG PO ×2 (05:35→14:33)
[2021-06-21] MEDS: Enoxaparin 40 MG/0.4 ML Syringe SC (05:36)
[2021-06-21] MEDS: 0.9% Saline Lock 10 ML Syringe IV ×2 (05:37→07:39)
[2021-06-21] MEDS: 0.9% Normal Saline 1,000 ML 125 ML IV ×2 (05:39→14:33)
[2021-06-21] MEDS: oxyCODONE 5 MG Tablet PO ×3 (05:44→18:16)
--- NOTE | 2021-06-21 06:35 | PN.OBGYN_ITS ---
Subjective Subjective Reports pain medication controlled with medication. She notes painfulness in upper and lower belly today. Back pain localized to her lower back. Denies fever, chills. c/o headache, nausea and reports she vomited twice - but held it back so she did not throw up fully. Denies loose stool overnight. Objective Data Objective Data Vital Signs: Vital Signs Temp Pulse Resp BP Pulse Ox 98.5 F 77 16 122/70 H 95 06/21/21 05:28 06/21/21 05:28 06/21/21 05:28 06/21/21 05:28 06/21/21 05:28 Oxygen Delivery Method Room Air Weight: 113.443 kg Body Mass Index (BMI) 42.9 Intake & Output: Intake and Output for Last 24 Hours 06/19/21 06/20/21 06/21/21 23:59 23:59 23:59 Intake Total 4594.59 / 4594.59 2817.09 / 2817.09 1225 / 1225 Output Total 850 / 850 3 / 3 Balance 3744.59 / 3744.59 2814.09 / 2814.09 1225 / 1225 Lab / Micro Data Result Diagrams: 06/21/21 06:30 06/20/21 05:46 Labs: Laboratory Results - last 24 hr 06/20/21 05:46: Magnesium 1.9 06/20/21 11:55: Miscellaneous Test Cancelled Micro: Microbiology 06/20/21 11:55 Stool C. difficile GDH Antigen & Toxins - Final 06/20/21 11:55 Stool C. difficile DNA Amplification - Final 06/18/21 20:35 Nasal Secretion SARS-CoV-2 Antigen (Rapid) - Final Radiography Diagnostic Testing: Radiology Impression Renal Ultrasound 06/20/21 08:54 IMPRESSION: Mild degree of left hydronephrosis. Electronically Signed: Yaya Soto MD at 13:27 EDT , Service support , Physical Exam Const alert, oriented x3 and no apparent distress HEENT normocephalic Resp normal respiratory effort and normal air movement Cardio regular rate and regular rhythm GI normal to inspection, nondistended, normoactive bowel sounds, soft to palpation, non-tender, non-distended and no masses Narrative: CVA tenderness improved from prior. Mild suprapubic tenderness. Back/Spine Back/Spine Narrative: Patient jumping with all palpation over lower and mid back, CVA Extremity normal to inspection, no calf tenderness and no pedal edema Neuro oriented x3 and moves all extremities Assessment & Plan (1) C. difficile diarrhea: PLAN: PO Vanc (2) Fever: QUALIFIERS: Fever type: unspecified Qualified Code(s): R50.9 - F ever, unspecified PLAN: Afebrile for 48 hours Ucx not c/w urinary/renal infection f/u blood cultures f/u am labs (3) Endometritis: PLAN: Pelvic pain persists Abx switched to Doxy/Flagyl PO for PID coverage Will order pelvic US today given persistent painfulness (4) Pyelonephritis: PLAN: Zosyn d/c'd given diarrhea, C. diff and negative urine culture per Medicine Renal US reviewed with no concerning pathology
[2021-06-21 06:44] LABS: Absolute Lymphocyte Count 1.66 X10^3/uL (0.83-4.51); Absolute Neutrophil Count 3.3 X10^3/uL (2.0-7.7); Basophil# 0.02 X10^3/uL; Basophil% 0.4 % (0-1); Eosinophil# 0.11 X10^3/uL; Hematocrit 34.4 % (37-47); Hemoglobin 10.5 g/dL (12.0-15.0); Lymphocyte # 1.66 X10^3/ul (0.83-4.51); Lymphocyte % 29.6 % (19-41); Mean Corp Hgb Conc 30.5 g/dL (32-36); Mean Corpuscular Hgb 25.7 pg (27.0-32.0); Mean Corpuscular Volume 84.3 fL (81-99); Mean Platelet Vol. 8.7 fl (6.2-12.0); Monocyte# 0.49 X10^3/uL; Monocyte% 8.8 % (0-10); NRBC Flagged by Analyzer 0 % (0-5); Neutrophil # 3.29 X10^3/uL (2.7-7.7); Neutrophil % 58.7 % (47-70); Platelet Count 263 K/mm3 (150-450); RBC Distribution Width CV 14.8 % (11.6-14.6); RBC Distribution Width SD 45.8 fl (35.1-43.9); Red Blood Count 4.08 M/mm3 (4.2-5.4); White Blood Count 5.6 K/mm3 (4.4-11.0)
--- NOTE | 2021-06-21 07:08 | CT_ITS ---
STUDY: CT ABDOMEN AND PELVIS WITH CONTRAST REASON FOR EXAM: Female, 26 years old. Persistent abdominal and pelvic pain, C-diff, ?PID -- IV and PO contrast needed RADIATION DOSAGE (If Supplied By Facility): CTDIvol = ( 16.09 ) mGy, DLP = ( 2741.38 ) mGycm TECHNIQUE: Transaxial images were obtained from the dome of the diaphragm to the symphysis pubis with oral contrast. Oral and amp; IV Gastrografin and amp; 100mL Isovue-300 was administered. Sagittal and coronal images were reconstructed. Individualized dose optimization techniques were used for this CT. COMPARISON: None. FINDINGS: The visualized lung bases are unremarkable. The visualized portions of the heart are within normal limits. There is hepatomegaly with diffuse hepatic enlargement. There is an 8.5 mm cyst in the medial aspect of the left lobe of the liver. Normal gallbladder and extrahepatic biliary system. Normal spleen. Normal pancreas. Normal bilateral adrenal glands. Normal right kidney. Normal left kidney. Normal visualized stomach. Normal small intestine. Normal colon. The appendix is visualized and appears normal. Normal abdominal aorta. Normal inferior vena cava. There is borderline retroperitoneal lymphadenopathy with enlarged nodes no greater than 10mm in the short axis diameter. Normal urinary bladder. There is a 3.6 cm x 3.3 cm right ovarian cyst. Small follicles are seen in the left ovary. Normal abdominal wall. Normal osseous structures. CT/Abdomen/Pelvis WITH Contrast IMPRESSION: 3.6 cm x 3.3 cm right ovarian cyst. Small follicles are seen in the left ovary. Hepatomegaly. 8.5 mm cyst is seen in the left lobe of the liver. Electronically Signed: Yaya Soto MD at 10:17 EDT , Service support ,
[2021-06-21 07:11] LABS: ALB/GLOB Ratio 0.8 RATIO (0.9-2.4); AST(SGOT) 8 U/L (15-37); Alanine Aminotransfer ALT/SGPT 19 U/L (13-56); Albumin, Serum 2.6 g/dL (3.2-5.0); Alkaline Phosphatase 73 U/L (45-117); Anion Gap 5 (5-15); BUN 5 mg/dL (7-18); BUN/Creat Ratio 10.8 RATIO (10-20); Calcium,Total 8.1 mg/dL (8.5-10.1); Chloride 110 mmol/L (98-107); Creatinine, Serum 0.46 mg/dL (0.55-1.02); EST Glomerular Filtration Rate 173 mL/min (>60); Est Glom Filt Rate - Afr Amer 209 mL/min (>60); Estimated Creatinine Clearance 160.04 ml/min; Globulin 3.4 g/dL (2.2-4.2); Glucose 90 mg/dL (74-106); Potassium 3.6 mmol/L (3.5-5.1); Sodium Level 140 mmol/L (136-145)
[2021-06-21] MEDS: Ondansetron 4 MG/2 ML Vial IV (07:39)
[2021-06-21 07:45] VITALS: BP 126/64; PULSE 78; RESP 16; TEMP 37.2; O2SAT 95
[2021-06-21 07:47] VITALS: RESP 18
[2021-06-21] MEDS: Contrast Allergy Safety Check IV (08:21)
--- NOTE | 2021-06-21 08:40 | PN_ITS ---
Progress Note Medications reviewed by the cloud consultant and myself in collaboration. We agree current medication based on best evidence does not require pumping and dumping.
--- NOTE | 2021-06-21 08:40 | PCM.PN.BLA ---
Progress Note Medications reviewed by the economic consultant and myself in collaboration. We agree current medication based on best evidence does not require pumping and dumping.
--- NOTE | 2021-06-21 08:55 | NURSING ---
Bedside nurse had called this am and stated mother was now pumping and dumping because of medication she was on. I reviewed with nurse medications Doxycycline L3, vancomycin L1 and Flagyl L2 and spoke with Dr. Alexys Thomas and recommended she did not have to pump and dump . All medications probably compatible with breast feeding. Bedside nurse informed and patient given [facility] hotline number so she to could call and ask any other questions she had about the medications.
[2021-06-21] MEDS: DiphenhydrAMINE 50 MG/ML Syringe 12.5 MG IV (09:13)
[2021-06-21] MEDS: Doxycycline 100 MG CAPSULE PO (10:40)
[2021-06-21] MEDS: Ketorolac 10 MG Tablet PO (10:40)
[2021-06-21] MEDS: Mag Hydrox/Al Hydrox/Simeth 30 ML UDC PO (11:33)
[2021-06-21] MEDS: Pantoprazole Sodium 40 MG Tablet PO (11:33)
--- NOTE | 2021-06-21 11:56 | PN.HOSP_ITS ---
Documented by User: Sandhya Ding NP, MEDICAL SOCIAL WORKER-C 06/21/21 12:06 Subjective Subjective Patient seen and examined. Reports mild improvement in diarrhea. Continues to report abdominal discomfort, worse after eating. Denies fever. Appears resting comfortably in bed. Objective Data Objective Data Vital Signs: Vital Signs Temp Pulse Resp BP Pulse Ox 98.9 F 78 18 126/64 H 95 06/21/21 07:45 06/21/21 07:45 06/21/21 07:47 06/21/21 07:45 06/21/21 07:45 Oxygen Delivery Method Room Air Weight: 250 lb 1.584 oz Body Mass Index (BMI) 42.9 Intake & Output: Intake and Output for Last 24 Hours 06/19/21 06/20/21 06/21/21 23:59 23:59 23:59 Intake Total 4594.59 / 4594.59 2817.09 / 2817.09 1225 / 1225 Output Total 850 / 850 3 / 3 Balance 3744.59 / 3744.59 2814.09 / 2814.09 1225 / 1225 Lab / Micro Data Result Diagrams: 06/21/21 06:30 06/21/21 06:30 Labs: Laboratory Results - last 24 hr 06/20/21 05:46: Magnesium 1.9 06/20/21 11:55: Miscellaneous Test Cancelled 06/21/21 06:30: WBC 5.6, RBC 4.08 L, Hgb 10.5 L, Hct 34.4 L, MCV 84.3, MCH 25.7 L, MCHC 30.5 L, RDW Std Deviation 45.8 H, RDW Coeff of Wiliam 14.8 H, Plt Count 26 3, MPV 8.7, Immature Gran % (Auto) 0.500, Neut % (Auto) 58.7, Lymph % (Auto) 29.6, [place] % (Auto) 8.8, Eos % (Auto) 2.0, Baso % (Auto) 0.4, Absolute Neuts (auto) 3.3, Absolute Lymphs (auto) 1.66, Nucleated RBC % 0 06/21/21 06:30: Sodium 140, Potassium 3.6, Chloride 110 H, Carbon Dioxide 25.0, Anion Gap 5, BUN 5 L, Creatinine 0.46 L, Estim Creat Clear Calc 160.04, Est GFR (MDRD) Af Amer 209, Est GFR (MDRD) Non-Af 173, BUN/Creatinine Ratio 10.8, Glucose 90, Calcium 8.1 L, Total Bilirubin 0.60, AST 8 L, ALT 19, Alkaline Phosphatase 73, Total Protein 6.0 L, Albumin 2.6 L, Globulin 3.4, Albumin/Globulin Ratio 0.8 L Micro: Microbiology 06/18/21 20:30 Blood Culture (Wb) - Anticubital Left Blood Culture - Preliminary No growth in 48 hours. 06/18/21 20:41 Blood Culture (Wb) - Anticubital Right Blood Culture - Preliminary No growth in 48 hours. 06/20/21 11:55 Stool C. difficile GDH Antigen & Toxins - Final 06/20/21 11:55 Stool C. difficile DNA Amplification - Final 06/18/21 20:35 Nasal Secretion SARS-CoV-2 Antigen (Rapid) - Final Radiography Diagnostic Testing: Radiology Impression Renal Ultrasound 06/20/21 08:54 IMPRESSION: Mild degree of left hydronephrosis. Electronically Signed: Yaya Soto MD at 13:27 EDT , Service support , Abdomen/Pelvis CT 06/21/21 07:08 IMPRESSION: 3.6 cm x 3.3 cm right ovarian cyst. Small follicles are seen in the left ovary. Hepatomegaly. 8.5 mm cyst is seen in the left lobe of the liver. Electronically Signed: Yaya Soto MD at 10:17 EDT , Service support , Physical Exam Const alert, oriented x3 and no apparent distress Orientation / Consciousness: awake, oriented to person, oriented to place and oriented to time Nutritional Appearance: obese HEENT normocephalic and moist oral mucous membranes Eyes PERRL, EOMs intact bilaterally and conjunctivae normal Neck no lymphadenopathy Resp normal respiratory effort and clear to auscultation bilaterally Cardio regular rate, regular rhythm and no murmurs Peripheral Pulses: pulses 2+ throughout GI normal to inspection, nondistended, normoactive bowel sounds, non-tender and non-distended Palpation: tender other (Generalized, nonspecific) Extremity normal to inspection Skin no rashes or lesions noted Lesions: no lesions Rashes: no rashes Trauma: no lacerations or abrasions Neuro CN's II-XII intact bilaterally, no focal motor deficits, no sensory deficits noted and deep tendon reflexes 2+ bilaterally Psych mental status grossly normal and affect normal Assessment & Plan Assessment/Plan (1) C. difficile diarrhea: PLAN: 1. Acute cdiff- continue oral Vanc. IV fluids. On lactobacillus. Diarrhea improving. Continue oral vancomycin for 10-day course. If patient has extended doxy/Flagyl for PROPERTY MANAGEMENT ASSISTANT purposes, will need extended course of vanc. 2. Pelvic pain, fever- UTI ruled out. Recent antibiotic treatment per OBGYN for possible PID. Possibly secondary to #[address] of abdomen pelvis shows 3.6 x 3.3 cm right ovarian cyst, hepatomegaly with 8.5 mm cyst in the left lobe of the liver. Otherwise unremarkable CT scan. Further management per PROPERTY MANAGEMENT ASSISTANT. 3. History of vaginal delivery 05/05/21- complicated by 4th degree perineal laceration with fistula formation and dehiscence- management per PROPERTY MANAGEMENT ASSISTANT. 4. Obesity- encouraged diet and lifestyle modifications. DVT prophylaxis- Lovenox sc This patient was seen by ERICA Balderas under the supervision of Dr. Zamudio. Documented by User: Dr. William Zamudio DO 06/21/21 21:03 Objective Data Lab / Micro Data Result Diagrams: 06/21/21 06:30 06/21/21 06:30 Charges/Coding Addendum Addendum: Patient was seen and examined independently of Sandhya Ding today, I talked with the patient's PROPERTY MANAGEMENT ASSISTANT physician late today who discharged the patient home on a weeks worth of medications for a superficial perineal infection, she did not feel the patient had pelvic inflammatory disease. On examination she appeared in good health and spirits, she does not appear to be in any distress. Vital signs as documented. Skin warm and dry and without overt rashes. Neck without JVD, thyroid appears normal, trachea is midline, neck is supple. Lungs clear, normal air movement was noted. Heart exam notable for regular rhythm, normal sounds and absence of murmurs, rubs or gallops. Abdomen unremarkable and without evidence of organomegaly, masses, or abdominal aortic enlargement, bowel sounds are present in all 4 quadrants, no abdominal tenderness was noted. Extremities nonedematous, no cyanosis was noted, no c lubbing was noted. Neuro: Cranial nerves II through XII are grossly intact, no focal motor deficits were noted, sensation to light touch and pinprick is intact, motor exam 5/5 throughout. Psych: Patient is alert and oriented x3, she does not appear anxious or depressed, she does not appear agitated. I conveyed to the patient's attending physician that she should be on oral vancomycin while she is receiving other antibiotics and then for a week after the antibiotics are stopped. Patient appears medically stable for discharge at this time. I have reviewed Sandhya Ding's progress note including her medical assessment and plan of care and endorse it. Visit Charges Inpatient E&M: 71287 Subs Hosp L2
[2021-06-21 14:39] VITALS: BP 125/70; PULSE 85; RESP 16; TEMP 36.5; O2SAT 93
[2021-06-21 15:53] VITALS: O2SAT 93
--- NOTE | 2021-06-21 17:57 | PCM.DC ---
Discharge Instructions Diet Discharge Diet: No restrictions Activity Discharge Activity: Return to Normal Activity, May Shower and May Take a Tub Bath May resume sexual activity in: 6-8 weeks Lifting Restrictions: 10-20 lb Dressing / Incision Call your doctor if your incision/area has: Increased Pain/ Swelling, Increased Redness and Foul Smelling Discharge Call your doctor if you observe: Fever of 101 or Higher and Uncontrolled pain Cleanse incision/area with: Soap & Water Follow Up Care Please Follow Up With: Magnus Rodas MD When: 3-5 days follow up with Leyda MORALES - Dr. Rodas or Dr. Alexys Thomas 3-[address] Ramirez in [place]. Call their office to schedule an appointment. Test Results: Test results from this visit will be discussed in further detail at your follow-up appointment, if applicable. Discharge Plan Admission Admit Date/Time: 06/18/21 19:43 Primary Reason for Your Visit: Pelvic infection, C. diff infection Attending Provider: Myesha Castillo Primary Care Provider: Alfredo Barroso Consulting Providers: William Zamudio Instructions Patient Instructions: What Is Pelvic Inflammatory ..., Clostridium Difficile Infection, What Is C. Diff? Discharge Orders/Prescriptions Prescriptions: New metronidazole 500 mg Tablet 500 mg PO TID 7 Days Qty: 21 RF: 0 doxycycline monohydrate 100 mg Capsule 100 mg PO BID Qty: 14 RF: 0 vancomycin 250 mg Capsule 125 mg PO Q6 14 Days Qty: 28 RF: 0 ibuprofen 600 mg tablet 600 mg PO TID PRN (Reason: pain) Qty: 20 RF: 0 Saccharomyces boulardii [Florastor] 250 mg capsule 250 mg PO BID Qty: 60 RF: 1 oxycodone 5 mg Tablet 5 mg PO Q6H PRN PRN (Reason: Pain Score 6-10) 7 Days Qty: 12 RF: 0 Discontinued polyethylene glycol 3350 [Miralax] 17 gram Powder In Packet 17 g PO DAILY RF: 0 Referrals / Follow Up: Alfredo Barroso MD [Primary Care Provider] - Within 1 Month Disposition Disposition (needs filled in before D/C Order can be placed): Home, Self Care
--- NOTE | 2021-06-21 18:12 | DS.PCM_ITS ---
Providers Date of Admission: 06/18/21 Primary Care Physician: Dr. Alfredo Barroso MD Consultations 06/21/21 07:27 Consult: Hospitalist Routine Consulting Provider: William Zamudio Reason for Consult: medical management EMERGENT Consult: Yes MD Notified: Yes Date Notified: 06/21/21 Time Notified: 07:27 Method of Notification: Text Method of Consult:: In-Person Reason For Visit: PYELONEPHRITIS, ENDOMETRITIS Diagnosis Discharge Diagnosis (1) C. difficile diarrhea: Status: Acute Code(s): A04.72 - Enterocolitis due to Clostridium difficile, not specified as recurrent (2) Perineal abscess, superficial: Status: Acute Code(s): L02.215 - Cutaneous abscess of perineum (3) Endometritis: Status: Acute Code(s): N71.9 - Inflammatory disease of uterus, unspecified (4) Fever: Status: Acute Code(s): R50.9 - Fever, unspecified Qualifiers: Fever type: unspecified Qualified Code(s): R50.9 - Fever, unspecified (5) Hypokalemia: Status: Acute Code(s): E87.6 - Hypokalemia Medications at Discharge Home Medications Saccharomyces boulardii [Florastor] 250 mg PO BID #60 cap 06/21/21 doxycycline monohydrate 100 mg PO BID #14 cap 06/21/21 ibuprofen 600 mg PO TID PRN #20 tab 06/21/21 metronidazole 500 mg PO TID 7 Days #21 tab 06/21/21 oxycodone 5 mg PO Q6H PRN PRN 7 Days #12 tab 06/21/21 vancomycin 125 mg PO Q6 14 Days #28 cap 06/21/21 Hospital Course Operations None Summary of Care Provided Minutes Spent on Discharge: 10 Hospital Course: 26yo with history of vaginal delivery on 05/05/2021 complicated by fourth degree perineal laceration repair with subsequent wound dehiscence and repair on 05/16/2021 who was directly admitted from the office on 06/18/12 at 6 weeks for fever, chills, dysuria, pelvic and perineal pain, bladder and uterine tenderness with left CVA tenderness concerning for pyelonephritis versus endometritis. Blood and urine cultures were sent and patient was started on Zosyn and Flagyl. She became afebrile with resolving leukocytosis over the next day and a half however reported loose stool with each void. C. difficile testing was consistent with C. difficile antigen and the presence of toxigenic C. difficile in the absence of toxin. Hospitalist consultation was obtained and oral vancomycin was started and patient converted to doxycycline and Flagyl p.o. given urine culture was negative and renal ultrasound was unremarkable. CT of the abdomen pelvis was obtained given persistent complaint of no improvement of abdominal pain despite improved exam with no acute intra-abdominal process identifiable. The patient reported passage of stool per vagina during hospitalization which was not appreciated on pelvic examination. Repeat perineal exam demonstrated opening of the perineum superficially to depth approximately 1cm with purulent drainage which was cultured. Given she is tolerating p.o. and has been afebrile for more than 48 hours with overall clinical improvement she will be discharged to home for continued outpatient management. Physical Exam Const alert, oriented x3, no apparent distress and well nourished General Appearance: cooperative Resp normal respiratory effort, normal air movement and clear to auscultation bilaterally Cardio regular rate and regular rhythm GI normal to inspection, nondistended, normoactive bowel sounds, soft to palpation, non-tender, non-distended and no masses Narrative: Normal external genitalia. Perineum with small separation approx 10 mm deep with purulent drainage, pink tissue seen with no surrounding erythema or discoloration or swelling. Gentle bimanual exam performed with bladder tenderness and suprapubic tenderness resolved. No palpable vaginal defect. Uterine tenderness much improved from admission. Extremity no calf tenderness and no pedal edema Neuro oriented x3, moves all extremities and no focal motor deficits Weight / BMI Weight Weight: 113.443 kg Body Mass Index (BMI) 42.9 ABG / Lab / Microbiology Data Result Diagrams: 06/21/21 06:30 06/21/21 06:30 Laboratory: Laboratory Results - last 24 hr 06/21/21 06:30: WBC 5.6, RBC 4.08 L, Hgb 10.5 L, Hct 34.4 L, MCV 84.3, MCH 25.7 L, MCHC 30.5 L, RDW Std Deviation 45.8 H, RDW Coeff of Wiliam 14.8 H, Plt Count 263, MPV 8.7, Immature Gran % (Auto) 0.500, Neut % (Auto) 58.7, Lymph % (Auto) 29.6, [place] % (Auto) 8.8, Eos % (Auto) 2.0, Baso % (Auto) 0.4, Absolute Neuts (au to) 3.3, Absolute Lymphs (auto) 1.66, Nucleated RBC % 0 06/21/21 06:30: Sodium 140, Potassium 3.6, Chloride 110 H, Carbon Dioxide 25.0, Anion Gap 5, BUN 5 L, Creatinine 0.46 L, Estim Creat Clear Calc 160.04, Est GFR (MDRD) Af Amer 209, Est GFR (MDRD) Non-Af 173, BUN/Creatinine Ratio 10.8, Glucose 90, Calcium 8.1 L, Total Bilirubin 0.60, AST 8 L, ALT 19, Alkaline Phosphatase 73, Total Protein 6.0 L, Albumin 2.6 L, Globulin 3.4, Albumin/Globulin Ratio 0.8 L Microbiology: Microbiology 06/18/21 20:30 Blood Culture (Wb) - Anticubital Left Blood Culture - Preliminary No growth in 48 hours. 06/18/21 20:41 Blood Culture (Wb) - Anticubital Right Blood Culture - Preliminary No growth in 48 hours. 06/20/21 11:55 Stool C. difficile GDH Antigen & Toxins - Final 06/20/21 11:55 Stool C. difficile DNA Amplification - Final 06/18/21 20:35 Nasal Secretion SARS-CoV-2 Antigen (Rapid) - Final Radiography Diagnostic Testing: Radiology Impression Abdomen/Pelvis CT 06/21/21 07:08 IMPRESSION: 3.6 cm x 3.3 cm right ovarian cyst. Small follicles are seen in the left ovary. Hepatomegaly. 8.5 mm cyst is seen in the left lobe of the liver. Electronically Signed: Yaya Soto MD at 10:17 EDT , Service support , D/C Instructions Discharge Diet: No restrictions May resume sexual activity in: 6-8 weeks Call your doctor if your incision/area has: Increased Pain/ Swelling, Increased Redness and Foul Smelling Discharge Call your doctor if you observe: Fever of 101 or Higher and Uncontrolled pain Cleanse incision/area with: Soap & Water Please Follow Up With: Magnus Rodas MD When: 3-5 days follow up with Leyda MORALES - Dr. Rodas or Dr. Alexys Thomas 3-[address] Ramirez in [place]. Call their office to schedule an appointment. Meaningful Use Info Meaningful Use Diagnoses (Choose all that apply): None applicable Discharge Plan Admission Admit Date/Time: 06/18/21 19:43 Primary Reason for Your Visit: Pelvic infection, C. diff infection Attending Provider: Myseha Castillo Primary Care Provider: Alfredo Barroso Consulting Providers: William Zamudio Instructions Patient Instructions: What Is Pelvic Inflammatory ..., Clostridium Difficile Infection, What Is C. Diff? Discharge Orders/Prescriptions Prescriptions: New metronidazole 500 mg Tablet 500 mg PO TID 7 Days Qty: 21 RF: 0 doxycycline monohydrate 100 mg Capsule 100 mg PO BID Qty: 14 RF: 0 vancomycin 250 mg Capsule 125 mg PO Q6 14 Days Qty: 28 RF: 0 ibuprofen 600 mg tablet 600 mg PO TID PRN (Reason: pain) Qty: 20 RF: 0 Saccharomyces boulardii [Florastor] 250 mg capsule 250 mg PO BID Qty: 60 RF: 1 oxycodone 5 mg Tablet 5 mg PO Q6H PRN PRN (Reason: Pain Score 6-10) 7 Days Qty: 12 RF: 0 Discontinued polyethylene glycol 3350 [Miralax] 17 gram Powder In Packet 17 g PO DAILY RF: 0 Referrals / Follow Up: Alfredo Barroso MD [Primary Care Provider] - Within 1 Month Disposition Disposition (needs filled in before D/C Order can be placed): Home, Self Care
[2021-06-21 19:07] VITALS: BP 118/67; PULSE 70; RESP 18; TEMP 36.8; O2SAT 97
== END 2021-06-21 19:10 | disposition home or self-care (01) | DRG 248 ==
PROVIDERS: Family Medicine; Admitting Provider Obstetrics & Gynecology; PCP Family Medicine; Visit Provider Obstetrics & Gynecology
DX: A04.72 Enterocolitis due to Clostridium difficile, not specified as recurrent (principal); L02.215 Cutaneous abscess of perineum; N71.9 Inflammatory disease of uterus, unspecified; E87.6 Hypokalemia; Z87.891 Personal history of nicotine dependence; Z68.41 Body mass index [BMI] 40.0-44.9, adult; E66.01 Morbid (severe) obesity due to excess calories; N30.00 Acute cystitis without hematuria
CPT/HCPCS: 36415; 74177; 76770; 80048; 80053; 81001; 83605; 83615; 83735; 85025; 86850; 86900; 86901; 87040; 87070; 87075; 87077; 87086; 87088; 87186; 87205; 87426; 87493; J7030; J7040; Q9967; A4216; J2405

== ENCOUNTER 2021-07-22 16:59 | Emergency (ER) | payer MEDICAID, SELFPAY ==
[2021-07-22 17:00] VITALS: BP 128/74; PULSE 74; RESP 15; TEMP 36.4; O2SAT 100; BMI 42.4
--- NOTE | 2021-07-22 17:18 | EKG12_ITS ---
Test Reason : CP Blood Pressure : / mmHG Vent. Rate : 074 BPM Atrial Rate : 074 BPM P-R Int : 152 ms QRS Dur : 082 ms QT Int : 398 ms P-R-T Axes : 028 012 004 degrees QTc Int : 441 ms Normal sinus rhythm Normal ECG Confirmed by ANGELA CERDA, LENARD ([id number]), film or videotape editor MICHELLE MOFFETT ([id number]) on 07/24/2021 9:20:09 AM Referred By: RUSTAM Confirmed By:LENARD MILLER MD
--- NOTE | 2021-07-22 17:19 | ED.VIS.CHEST ---
HPI History of Present Illness Chief Complaint: Chest Pain Narrative Narrative: 26-year-old female presenting with chest pain which is left-sided. She states it feels like heaviness on the left front of her chest and the left back of her chest. This started about 30 minutes prior to arrival. Patient states that she was otherwise healthy prior to this. She states that she was out with her significant other and had [place] but when she woke up she had this pain. She states that initially she had relief from vomiting. Patient states that she gave in April which was complicated by vaginal tearing which she states was large. She also states this became secondarily infected. She was on antibiotics and developed C. difficile colitis. She is currently not having significant diarrhea and feels otherwise well. [facility] Medical History ADHD (attention deficit hyperactivity disorder) Anxiety Chronic pain Post traumatic stress disorder (PTSD) Home Medications NK 07/22/21 [History Last Taken Unknown] Allergy/AdvReac Type Severity Reaction Status Date / Time cat dander Allergy Hives Verified 07/22/21 17:07 peanut Allergy Swelling Verified 07/22/21 17:07 cranberry AdvReac Rash Verified 07/22/21 17:07 mold AdvReac Other Verified 07/22/21 17:07 morphine AdvReac Chest Verified 07/22/21 17:07 tightness DUST Allergy Hives Uncoded 07/22/21 17:07 Family History Aunt Cancer maternal aunt - uterine/cervical ca Surgical History Dehiscence of perineal wound Fourth degree perineal laceration History of gynecologic surgery Social History Smoking Status: Former smoker ROS ROS ED Constitutional Constitutional ED: Denies chills or fever(s) Eyes Eyes: Denies blurry vision or change in vision ENT ENT ED: Denies rhinorrhea or sore throat Cardiovascular Cardiovascular: Reports chest pain Respiratory/Chest Respiratory/Chest: Denies cough or sputum Gastrointestinal Gastrointestinal: Reports nausea and vomiting; Denies abdominal pain Genitourinary Genitourinary ED: Denies dysuria or hematuria Musculoskeletal Musculoskeletal: Denies arthralgias, back pain, myalgias or neck pain Neurologic Neurologic: Denies headache(s) or paresthesias EXAM Physical Exam Const Vital Signs: 07/22/21 17:00 07/22/21 17:04 07/22/21 17:18 Temperature 97.6 F L Temperature Source Oral Pulse Rate 74 Respiratory Rate 15 Respiratory Effort Normal Non-Labored Blood Pressure 128/74 H Blood Pressure Mean 92 Pulse Ox 100 Oxygen Delivery Method Room Air Room Air 07/22/21 18:05 07/22/21 19:00 Temperature Temperature Source Pulse Rate 76 73 Respiratory Rate 20 H 15 Respiratory Effort Blood Pressure 129/86 H 129/86 H Blood Pressure Mean 100 100 Pulse Ox 99 98 Oxygen Delivery Method Positive obese General Appearance ED: NAD Nutritional Appearance: obese HEENT Reports moist mucous membranes normocephalic and atraumatic Eyes PERRL and EOMs intact bilaterally General Eye ED: Negative for pale conjunctiva or scleral icterus Chest Wall inspection of chest normal Resp normal respiratory effort and clear to auscultation bilaterally Effort and Inspection: Negative for respiratory distress Auscultation: Negative for rales, rhonchi or wheezes Cardio regular rate and regular rhythm GI normal to inspection, nondistended, normoactive bowel sounds Extremity normal to inspection General Extremety ED: Negative for edema or tenderness General Extremity: Negative for edema Neuro oriented x3 Sensorium / Orientation: awake and alert Psych mental status grossly normal Skin General Skin Exam: Negative for jaundice Heart Score History: Slightly/Non-Suspicious ECG: Normal Age: </= 45 years Risk Factors: No Risk Factors Score: 0 MDM MDM MDM Narrative Medical decision making narrative: Patient presenting with left-sided chest pain which read to left shoulder. Her distal EKG on my interpretation showed a sinus rhythm with a ventricular rate of 74 bpm without sign of ischemic change. Chest x-ray on my interpretation shows no acute process. Radiologist does agree. CBC and BMP are unremarkable. Troponin negative at 4. D-dimer was elevated at 0.64. Patient had CTA of the chest which interpreted by the radiologist shows no acute PE, dissection, pneumonia or other acute process. Patient was given 2 doses of 0.5 mg of Dilaudid with control of her pain. She was also given Zofran for nausea. Repeat troponin is 5. Nursing staff did report to me that the patient was in the room laughing and talking selfies it appears to be doing better. They also reported that when I walked into the room she would start moaning in pain. On my last reevaluation the patient did look much improved. I do not believe she needs more narcotic medication because I ruled out ACS and PE. There is nothing acute based on her blood work and imaging. I feel the patient is safe to be discharged home at this time. She is counseled to follow-up with her PCP to ensure resolution. Impression: 1. Chest pain 2. Nausea vomiting resolved Lab Data Attestation: I reviewed the patient's lab results. Labs: Laboratory Results - last 24 hr 07/22/21 07/22/21 07/22/21 17:00 17:00 17:00 WBC 8.5 RBC 4.73 Hgb 12.2 Hct 38.4 MCV 81.2 MCH 25.8 L MCHC 31.8 L RDW Std Deviation 45.9 H RDW Coeff of Wiliam 15.4 H Plt Count 341 MPV 8.5 Immature Gran % (Auto) 0.400 Neut % (Auto) 63.4 Lymph % (Auto) 29.3 [place] % (Auto) 5.9 Eos % (Auto) 0.8 Baso % (Auto) 0.2 Absolute Neuts (auto) 5.4 Absolute Lymphs (auto) 2.49 Nucleated RBC % 0 D-Dimer Quant (PE/DVT) 0.64 H* Sodium 140 Potassium 3.8 Chloride 105 Carbon Dioxide 31.0 Anion Gap 4 L BUN 11 Creatinine 0.59 Estim Creat Clear Calc 124.77 Est GFR (MDRD) Af Amer 158 Est GFR (MDRD) Non-Af 131 BUN/Creatinine Ratio 18.6 Glucose 84 Calcium 9.3 Troponin I High Sens 4 Serum , Qual 07/22/21 07/22/21 17:00 19:00 WBC RBC Hgb Hct MCV MCH MCHC RDW Std Deviation RDW Coeff of Wiliam Plt Count MPV Immature Gran % (Auto) Neut % (Auto) Lymph % (Auto) [place] % (Auto) Eos % (Auto) Baso % (Auto) Absolute Neuts (auto) Absolute Lymphs (auto) Nucleated RBC % D-Dimer Quant (PE/DVT) Sodium Potassium Chloride Carbon Dioxide Anion Gap BUN Creatinine Estim Creat Clear Calc Est GFR (MDRD) Af Amer Est GFR (MDRD) Non-Af BUN/Creatinine Ratio Glucose Calcium Troponin I High Sens 5 Serum , Qual NEGATIVE Radiography Diagnostic Testing: Clinical Impression(s) from Imaging Studies Chest X-Ray 07/22/21 17:33 IMPRESSION: No acute cardiopulmonary pathology. Electronically Signed: Roverto Granger MD at 17:53 EDT , Service support , Chest CTA 07/22/21 17:57 IMPRESSION: Normal CTA chest examination, without a demonstrated pulmonary embolism or arterial dissection. Electronically Signed: Roverto Granger MD at 18:30 EDT , Service support , Discharge Plan Triage Chief Complaint: Chest Pain ED Provider: Win Velez Dx/Rx/DC Orders Instructions: ED Chest Pain, Uncertain Cause Prescriptions: No Action NK RF: 0 Primary Care Provider: Alfredo Barroso Referrals: Alfredo Barroso MD [Primary Care Provider] - Disposition Disposition: Home, Self Care
--- NOTE | 2021-07-22 17:33 | RAD_ITS ---
STUDY: X-RAY CHEST REASON FOR EXAM: Female, 26 years old. chest pain TECHNIQUE: AP portable COMPARISON: 07/03/2019 FINDINGS: The lungs are clear and expanded. There is no demonstrated pleural abnormality. Normal size heart. Normal mediastinum and guerrero. Normal visualized pulmonary arteries. Normal visualized aortic arch and descending thoracic aorta. Dorsal spine demonstrates mild levoscoliosis or splinting.. Normal visualized ribs, clavicles, and shoulders. There is no demonstrated abnormality of the visualized soft tissue structures of the upper abdomen. RAD/Chest 1 View (Portable) IMPRESSION: No acute cardiopulmonary pathology. Electronically Signed: Roverto Granger MD at 17:53 EDT , Service support ,
[2021-07-22 17:35] LABS: Absolute Lymphocyte Count 2.49 X10^3/uL (0.83-4.51); Absolute Neutrophil Count 5.4 X10^3/uL (2.0-7.7); Basophil# 0.02 X10^3/uL; Basophil% 0.2 % (0-1); Eosinophil# 0.07 X10^3/uL; Eosinophils% 0.8 % (0-5); Hematocrit 38.4 % (37-47); Hemoglobin 12.2 g/dL (12.0-15.0); Lymphocyte # 2.49 X10^3/ul (0.83-4.51); Lymphocyte % 29.3 % (19-41); Mean Corp Hgb Conc 31.8 g/dL (32-36); Mean Corpuscular Hgb 25.8 pg (27.0-32.0); Mean Corpuscular Volume 81.2 fL (81-99); Mean Platelet Vol. 8.5 fl (6.2-12.0); Monocyte% 5.9 % (0-10); NRBC Flagged by Analyzer 0 % (0-5); Neutrophil % 63.4 % (47-70); Platelet Count 341 K/mm3 (150-450); RBC Distribution Width CV 15.4 % (11.6-14.6); RBC Distribution Width SD 45.9 fl (35.1-43.9); Red Blood Count 4.73 M/mm3 (4.2-5.4); White Blood Count 8.5 K/mm3 (4.4-11.0)
[2021-07-22] MEDS: 0.9% Normal Saline 1,000 ML 999 ML IV (17:44)
[2021-07-22] MEDS: HYDROmorphone 0.5 MG/0.5 ML SYRINGE IV ×2 (17:44→18:14)
[2021-07-22] MEDS: Ondansetron 4 MG/2 ML Vial IV (17:45)
[2021-07-22 17:49] LABS: Anion Gap 4 (5-15); BUN 11 mg/dL (7-18); BUN/Creat Ratio 18.6 RATIO (10-20); Calcium,Total 9.3 mg/dL (8.5-10.1); Chloride 105 mmol/L (98-107); Creatinine, Serum 0.59 mg/dL (0.55-1.02); EST Glomerular Filtration Rate 131 mL/min (>60); Est Glom Filt Rate - Afr Amer 158 mL/min (>60); Estimated Creatinine Clearance 124.77 ml/min; Glucose 84 mg/dL (74-106); Potassium 3.8 mmol/L (3.5-5.1); Sodium Level 140 mmol/L (136-145); Troponin-I HS 4 pg/mL (3.0-54.0)
[2021-07-22 17:55] LABS: D-Dimer Quantitative (DVT/PE) 0.64 FEU/ug/m (0.27-0.49)
--- NOTE | 2021-07-22 17:57 | CT_ITS ---
STUDY: CTA CHEST REASON FOR EXAM: Female, 26 years old. chest pain RADIATION DOSAGE (If Supplied By Facility): CTDIvol = ( 16.23 ) mGy, DLP = ( 576.66 ) mGycm TECHNIQUE: The examination was performed with the intravenous administration of IV 100mL Isovue-370. Post-processing of the angiographic images was performed, with multiplanar reformation and 3D reconstruction. Individualized dose optimization techniques were used for this CT. COMPARISON: None. FINDINGS: Normal enhancement of the main pulmonary artery and right and left pulmonary arteries. Normal enhancement of the bilateral peripheral pulmonary arteries. There is no demonstrated pulmonary embolism. Normal thoracic aorta and visualized great vessels. There is no demonstrated aortic dissection. Normal heart and pericardium. Normal mediastinum. Normal hilar regions. Normal visualized trachea and bronchi. The lungs are well expanded. Normal pulmonary parenchyma. Normal pleura. Normal chest wall structures. Dorsal spine demonstrates mild spondylosis Normal visualized upper abdomen. CT/CTA Chest W/WO Contrast IMPRESSION: Normal CTA chest examination, without a demonstrated pulmonary embolism or arterial dissection. Electronically Signed: Roverto Granger MD at 18:30 EDT , Service support ,
[2021-07-22 18:05] VITALS: BP 129/86; PULSE 76; RESP 20; O2SAT 99
[2021-07-22 18:08] LABS: Internal QC Validated? YES +Cl - CLEAR BKGD; Pregnancy, Serum, hCG Quali. NEGATIVE Negative
[2021-07-22 19:00] VITALS: BP 129/86; PULSE 73; RESP 15; O2SAT 98
[2021-07-22 19:28] LABS: Troponin-I HS 5 pg/mL (3.0-54.0)
== END 2021-07-22 19:53 | disposition home or self-care (01) ==
PROVIDERS: Emergency Provider Student in an Organized Health Care Education/Training Program; PCP Family Medicine
DX: R07.9 Chest pain, unspecified (principal); R11.2 Nausea with vomiting, unspecified; E66.9 Obesity, unspecified; Z87.891 Personal history of nicotine dependence
CPT/HCPCS: 71045; 71275; 80048; 84484; 84703; 85025; 85379; 93005; 96361; 96374; 96375; 96376; 99285; J7030; Q9967; A4216; J2405

== ENCOUNTER → 2021-07-26 11:54 | Outpatient (CLI) | payer MEDICAID, SELFPAY ==
[2021-07-29 17:07] LABS: Endomysial Antibody IgA Negative (Negative)
[2021-07-29 17:16] LABS: Immunoglobulin A 269 mg/dL (87-352); t-Transglutaminase IgA <2 U/mL (0-3)
== END ==
PROVIDERS: PCP Family Medicine
DX: K90.0 Celiac disease (principal)
CPT/HCPCS: 36415; 82784; 83516; 86255

== ENCOUNTER → 2021-08-24 | Outpatient (CLI) | payer MEDICAID, SELFPAY | END | disposition home or self-care (01) | LOC: LABSPEC 20:33 | PROVIDERS: PCP Family Medicine | DX: Z11.52 Encounter for screening for COVID-19 (principal) | CPT/HCPCS: 87426 ==

== ENCOUNTER 2021-09-06 00:46 | Emergency (ER) | payer MEDICAID, SELFPAY ==
[2021-09-06 00:47] VITALS: BP 148/74; PULSE 80; RESP 16; TEMP 36.6; O2SAT 98; BMI 44.9
--- NOTE | 2021-09-06 01:07 | EX.ED.DYSGE1 ---
HPI History of Present Illness Chief Complaint: General Illness Informant: patient Onset/Context/Timing Onset: Today Context: Sudden Onset Timing: Continuous Quality: Dull Location: Ileostomy site Worsened by: Deep breathing Relieved by: Nothing Narrative Narrative: Patient presents with bleeding from her ileostomy site that began tonight. Patient states she noted some blood from around the site where the ileostomy and skin come together. Patient admits to some dull pain over the ileostomy site. Patient states that it is worse with deep breathing. Patient states it has been constant tonight. Patient states she had her ileostomy done approximately 1 week ago at [facility]. Patient states that she was scheduled to have tubes removed by her home health nurse but her home health nurse has not contacted her. [facility] Medical History ADHD (attention deficit hyperactivity disorder) Anxiety Chronic pain Post traumatic stress disorder (PTSD) Home Medications cetirizine [Zyrtec] 10 mg PO DAILY 09/06/21 [History Last Taken Unknown] ciprofloxacin HCl [Cipro] 750 mg PO BID 09/06/21 [History Last Taken Unknown] docusate sodium [Colace] 100 mg PO DAILY 09/06/21 [History Last Taken Unknown] metronidazole [Flagyl] 375 mg PO BID 09/06/21 [History Last Taken Unknown] senna 8.6 mg PO QHS 09/06/21 [History Last Taken Unknown] Allergy/AdvReac Type Severity Reaction Status Date / Time cat dander Allergy Hives Verified 09/06/21 00:50 peanut Allergy Swelling Verified 09/06/21 00:50 cranberry AdvReac Rash Verified 09/06/21 00:50 mold AdvReac Other Verified 09/06/21 00:50 morphine AdvReac Chest Verified 09/06/21 00:50 tightness DUST Allergy Hives Uncoded 09/06/21 00:50 Family History Aunt Cancer maternal aunt - uterine/cervical ca Surgical History Dehiscence of perineal wound Fourth degree perineal laceration History of gynecologic surgery Social History Smoking Status: Former smoker ROS ROS ED Constitutional Constitutional ED: Denies chills or fever(s) Eyes Eyes: Denies blurry vision or change in vision ENT ENT ED: Denies rhinorrhea or sore throat Cardiovascular Cardiovascular: Denies chest pain or palpitations Respiratory/Chest Respiratory/Chest: Denies cough or dyspnea Gastrointestinal Gastrointestinal: Reports nausea; Denies vomiting Genitourinary Genitourinary ED: Denies dysuria or hematuria Musculoskeletal Musculoskeletal: Denies back pain or neck pain Integumentary Denies abscess or rash Neurologic Neurologic: Denies headache(s) or weakness Allergic/Immunologic Allergic/Immunologic ED: Denies mouth swelling or urticaria EXAM Physical Exam Const Vital Signs: 09/06/21 00:47 Temperature 97.8 F Temperature Source Oral Pulse Rate 80 Respiratory Rate 16 Blood Pressure 148/74 H Blood Pressure Mean 98 Pulse Ox 98 Oxygen Delivery Method Room Air Positive well nourished, well developed and obese General Appearance ED: well developed Nutritional Appearance: obese HEENT Reports moist mucous membranes Neck supple and no JVD Resp normal respiratory effort and clear to auscultation bilaterally Cardio regular rate, regular rhythm and no murmurs GI normal to inspection, nondistended, normoactive bowel sounds GI Narrative: There is no bleeding noted at the ileostomy site. Palpation: soft and tender other (Around ileostomy site); Negative for guarding or rebound tenderness present Extremity normal to inspection General Extremety ED: Negative for edema or tenderness General Extremity: Negative for edema Neuro oriented x3, CN's II-XII intact bilaterally and no sensory deficits noted Sensorium / Orientation: alert Motor Exam: strength 5/5 throughout Psych mental status grossly normal Skin no rashes or lesions noted MDM MDM MDM Narrative Medical decision making narrative: Patient requested that we remove the tubes that are coming out of her ileostomy site tonight. Patient was advised that I did not feel comfortable doing this. Patient was advised that she should follow-up with her surgeon or home health nurse for this as previously scheduled. Patient was ordered some IV fluids and Dilaudid for pain. Patient also had labs and CT scan ordered. Patient states that she did not want to stay for this. Patient states she was able to talk to her surgeon. Patient states he wants to leave and go to the hospital where he can take care of her. Patient left and did not receive any discharge paperwork. Discharge Plan Triage Chief Complaint: General Illness ED Provider: Jayro Brooks Dx/Rx/DC Orders Clinical Impression: Abdominal pain in female Prescriptions: No Action ciprofloxacin HCl [Cipro] 750 mg Tablet 750 mg PO BID RF: 0 Colace 50 mg Capsule 100 mg PO DAILY RF: 0 metronidazole [Flagyl] 375 mg Capsule 375 mg PO BID RF: 0 senna 8.6 mg Capsule 8.6 mg PO QHS RF: 0 Zyrtec 10 mg Capsule 10 mg PO DAILY RF: 0 Primary Care Provider: Alfredo Barroso Referrals: Alfredo Barroso MD [Primary Care Provider] - Disposition Disposition: Elopement Discharge Date/Time: 09/06/21 01:33
--- NOTE | 2021-09-06 01:22 | ED.RN ---
THIS RN INTO ROOM TO PLACE IV. PATIENT STATES SHE CALLED HER SURGEON AND SHE IS GOING TO SEE HIM. DR. GILLIAM NOTIFIED.
== END 2021-09-06 01:33 | disposition left against medical advice (07) ==
LOC: ED 01:26
PROVIDERS: Emergency Provider Emergency Medicine; PCP Family Medicine
DX: R10.9 Unspecified abdominal pain (principal); E66.9 Obesity, unspecified; Z87.891 Personal history of nicotine dependence
CPT/HCPCS: 96361; 96374; 99282; J7030

== ENCOUNTER 2021-09-08 04:47 | Emergency (ER) | payer MEDICAID, SELFPAY ==
[2021-09-08 04:48] VITALS: BP 148/77; RESP 18; TEMP 36.4; BMI 43.9
[2021-09-08 04:53] VITALS: BP 148/77; PULSE 68; RESP 16; O2SAT 99
--- NOTE | 2021-09-08 05:53 | EDS_ITS ---
HPI History of Present Illness Chief Complaint: Other, Pain/Inj Narrative Narrative: Patient is a 26-year-old female who had a fistula repair and following this had complications leading to colostomy. She states this was just performed recently over the past few days. She states that her ostomy is now been leaking persistently despite all her attempts to change the bag and attachment to the skin. She states that she was supposed to have a home health aide coming to help but that was not scheduled appropriately and as she has been continuously draining from her ostomy onto the skin surface presents for evaluation at this time [facility] Medical History ADHD (attention deficit hyperactivity disorder) Anxiety Chronic pain Post traumatic stress disorder (PTSD) Home Medications cetirizine [Zyrtec] 10 mg PO DAILY 09/06/21 [History Last Taken Unknown] ciprofloxacin HCl [Cipro] 750 mg PO BID 09/06/21 [History Last Taken Unknown] docusate sodium [Colace] 100 mg PO DAILY 09/06/21 [History Last Taken Unknown] metronidazole [Flagyl] 375 mg PO BID 09/06/21 [History Last Taken Unknown] senna 8.6 mg PO QHS 09/06/21 [History Last Taken Unknown] Allergy/AdvReac Type Severity Reaction Status Date / Time cat dander Allergy Hives Verified 09/08/21 04:53 peanut Allergy Swelling Verified 09/08/21 04:53 cranberry AdvReac Rash Verified 09/08/21 04:53 mold AdvReac Other Verified 09/08/21 04:53 morphine AdvReac Chest Verified 09/08/21 04:53 tightness DUST Allergy Hives Uncoded 09/08/21 04:53 Family History Aunt Cancer maternal aunt - uterine/cervical ca Surgical History Dehiscence of perineal wound Fourth degree perineal laceration History of gynecologic surgery Social History Smoking Status: Former smoker ROS ROS ED Constitutional Constitutional ED: Denies chills or fever(s) Cardiovascular Cardiovascular: Denies chest pain Respiratory/Chest Respiratory/Chest: Denies cough or dyspnea Gastrointestinal Gastrointestinal: Denies abdominal pain, nausea or vomiting Genitourinary Genitourinary ED: Denies dysuria Musculoskeletal Musculoskeletal: Denies myalgias Integumentary Reports Abrasions Hematologic/Lymphatic Hematologic/Lymphatic: Denies easy bleeding or easy bruising EXAM Physical Exam Const Vital Signs: 09/08/21 04:48 09/08/21 04:53 Temperature 97.5 F L Temperature Source Temporal Pulse Rate 68 Respiratory Rate 18 16 Blood Pressure 148/77 H 148/77 H Blood Pressure Mean 100 100 Pulse Ox 99 Positive well nourished and well developed General Appearance ED: well developed Eyes PERRL and EOMs intact bilaterally Neck supple Resp normal respiratory effort and clear to auscultation bilaterally Cardio regular rate and regular rhythm GI non-distended GI Narrative: Patient has an ostomy in place in the right upper quadrant of her abdomen. It is draining liquidy brown stool. There is surrounding soft tissue irritation consistent with her report of the leaking ostomy but no secondary changes to suggest infection. Auscultation: normoactive bowel sounds Palpation: soft Extremity normal to inspection Neuro oriented x3 and CN's II-XII intact bilaterally Sensorium / Orientation: alert Motor Exam: strength 5/5 throughout Psych mental status grossly normal Skin Skin Narrative: Soft tissue changes to the abdomen as documented above MDM MDM MDM Narrative Medical decision making narrative: Patient presented to the ER afebrile and had no obvious physical exam findings concerning for secondary skin infection from the leaking ostomy. Therefore I felt no need for laboratory studies or imaging studies. We attempted to replace the ostomy with improvement but not complete closure. The patient states she was able to contact [facility] where she had the procedure performed and they were willing to place her in the hospital at this time for continued ostomy education. Therefore patient will be discharged and she will travel to their facility by private vehicle. Discharge Plan Triage Chief Complaint: Other, Pain/Inj ED Provider: Yovani Uriostegui Dx/Rx/DC Orders Clinical Impression: Complication of ostomy Instructions: Colostomy: Changing Your Pouch, Colostomy: Caring for Your Stoma Prescriptions: No Action ciprofloxacin HCl [Cipro] 750 mg Tablet 750 mg PO BID RF: 0 Colace 50 mg Capsule 100 mg PO DAILY RF: 0 metronidazole [Flagyl] 375 mg Capsule 375 mg PO BID RF: 0 senna 8.6 mg Capsule 8.6 mg PO QHS RF: 0 Zyrtec 10 mg Capsule 10 mg PO DAILY RF: 0 Primary Care Provider: Alfredo Barroso Referrals: Alfredo Barroso MD [Primary Care Provider] - Disposition Disposition: Home, Self Care
== END 2021-09-08 05:59 | disposition home or self-care (01) ==
PROVIDERS: Emergency Provider Emergency Medicine; PCP Family Medicine
DX: K94.09 Other complications of colostomy (principal); Z87.891 Personal history of nicotine dependence
CPT/HCPCS: 99282

== ENCOUNTER 2021-12-15 05:22 | Emergency (ER) | payer BC, MEDICAID, SELFPAY ==
[2021-12-15 05:25] VITALS: BP 116/77; PULSE 89; RESP 20; TEMP 35.8; O2SAT 97; BMI 42.9
--- NOTE | 2021-12-15 05:39 | ED.VIS.GI ---
HPI HPI - GI History of Present Illness Chief Complaint: General Illness Informant: patient Abdominal Pain/Flank Pain Onset: Hours (about 7) Context: Gradual Onset Timing: Continuous Quality: Aching Location: - (central) Current Severity: Mild Maximum Severity: Mild Worsened by: - (vomiting) Relieved by: Nothing Nausea/Vomiting/Emesis GI Symptom: Positive for Nausea and Vomiting Onset: Today Quality: Positive for Nonbilious; Negative for Blood streaks Severity: Severe Diarrhea/Melena/Hematochezia GI Symptom: Positive for Diarrhea; Negative for Melena and Hematochezia Onset: Today Stool Quality: Positive for Watery; Negative for Mucous, Black, Maroon and BRB per rectum Severity: Moderate Associated Symptoms Associated Symptoms: Negative for Dysuria, Frequency and Hematuria Narrative Narrative: Patient presents with concerns about having stomach flu tonight. She states her entire family has had it here recently. She had a 4th degree vaginal tear and ended up needing a diverting colostomy, and she has had multiple for bags of nonbloody diarrhea tonight in addition to vomiting and some periumbilical central abdominal discomfort. No fevers or chills. She has felt a little lightheaded but no near syncope or syncope. No dyspnea or chest pain. No hematemesis. [facility] Medical History ADHD (attention deficit hyperactivity disorder) Anxiety Chronic pain Post traumatic stress disorder (PTSD) Home Medications ondansetron 8 mg PO Q8H PRN PRN #16 tab 12/15/21 [Rx Last Taken Unknown] Allergy/AdvReac Type Severity Reaction Status Date / Time cat dander Allergy Hives Verified 12/15/21 05:24 peanut Allergy Swelling Verified 12/15/21 05:24 cranberry AdvReac Rash Verified 12/15/21 05:24 mold AdvReac Other Verified 12/15/21 05:24 morphine AdvReac Chest Verified 12/15/21 05:24 tightness DUST Allergy Hives Uncoded 12/15/21 05:24 Family History Aunt Cancer maternal aunt - uterine/cervical ca Surgical History Dehiscence of perineal wound Fourth degree perineal laceration History of gynecologic surgery Social History Smoking Status: Former smoker ROS ROS ED Constitutional Constitutional ED: Reports malaise; Denies chills or fever(s) Eyes Eyes: Denies change in vision or diplopia ENT ENT ED: Denies rhinorrhea or sore throat Cardiovascular Cardiovascular: Denies chest pain or palpitations Respiratory/Chest Respiratory/Chest: Denies cough or dyspnea Gastrointestinal Gastrointestinal: Reports as per HPI, abdominal pain, diarrhea, nausea and vomiting Genitourinary Genitourinary ED: Denies dysuria or hematuria Musculoskeletal Musculoskeletal: Denies back pain or neck pain Integumentary Denies abscess or rash Neurologic Neurologic: Denies headache(s), paresthesias or weakness Psychiatric Psychiatric: Denies anxiety or suicidal thoughts EXAM Physical Exam Const Vital Signs: 12/15/21 05:25 12/15/21 05:29 Temperature 96.4 F L Temperature Source Temporal Pulse Rate 89 Respiratory Rate 20 H Respiratory Effort Normal Respiratory Pattern Normal Blood Pressure 116/77 Blood Pressure Mean 90 Pulse Ox 97 Oxygen Delivery Method Room Air Positive well nourished and well developed General Appearance ED: well developed and NAD HEENT Reports moist mucous membranes normocephalic and atraumatic Eyes PERRL and EOMs intact bilaterally Neck full ROM and supple Resp normal respiratory effort and clear to auscultation bilaterally Cardio regular rate, regular rhythm and no murmurs Rate: Negative for tachycardic GI non-distended GI Narrative: Very mild central abdominal tenderness. No tenderness around her right lower quadrant colostomy site which looks benign. No other areas of tenderness. Auscultation: normoactive bowel sounds Palpation: soft Back/Spine no CVA tenderness General Back: other FROM Extremity normal to inspection General Extremety ED: Negative for edema, pulses abnormal or tenderness General Extremity: Negative for edema or pulses abnormal Neuro oriented x3, CN's II-XII intact bilaterally and no sensory deficits noted Sensorium / Orientation: awake and alert Motor Exam: strength 5/5 throughout Skin no rashes or lesions noted and no wounds MDM MDM MDM Narrative Medical decision making narrative: I agree with the patient that she probably has a viral gastroenteritis. We will check her electrolytes, while treating with IV fluids, Zofran, Bentyl. Electrolytes are good, medications helped, she is tolerating oral fluids and will discharge home with Zofran to use as needed, discussed reasons to follow-up and return. Lab Data Attestation: I reviewed the patient's lab results. Labs: Laboratory Results - last 24 hr 12/15/21 06:07 Sodium 138 Potassium 3.9 Chloride 105 Carbon Dioxide 26.0 Anion Gap 7 BUN 11 Creatinine 0.69 Estim Creat Clear Calc 106.69 Est GFR (MDRD) Af Amer 131 Est GFR (MDRD) Non-Af 108 BUN/Creatinine Ratio 15.9 Glucose 114 H Calcium 9.3 Discharge Plan Triage Chief Complaint: General Illness ED Provider: Cali Kingston Dx/Rx/DC Orders Clinical Impression: Viral gastroenteritis Instructions: Viral Gastroenteritis Prescriptions: New ondansetron [ondansetron] 4 MG tablet 8 mg PO Q8H PRN PRN (Reason: Nausea) Qty: 16 RF: 0 Primary Care Provider: Alfredo Barroso Referrals: Alfredo Barroso MD [Primary Care Provider] - 3-5 Days if not improving Disposition Disposition: Home, Self Care
[2021-12-15] MEDS: Ondansetron 4 MG/2 ML Vial IV (06:01)
[2021-12-15] MEDS: Dicyclomine 20 MG/2 ML Vial IM (06:02)
[2021-12-15] MEDS: 0.9% Normal Saline 1,000 ML 999 ML IV (06:04)
[2021-12-15 06:26] LABS: Anion Gap 7 (5-15); BUN 11 mg/dL (7-18); BUN/Creat Ratio 15.9 RATIO (10-20); Calcium,Total 9.3 mg/dL (8.5-10.1); Chloride 105 mmol/L (98-107); Creatinine, Serum 0.69 mg/dL (0.55-1.02); EST Glomerular Filtration Rate 108 mL/min (>60); Est Glom Filt Rate - Afr Amer 131 mL/min (>60); Estimated Creatinine Clearance 106.69 ml/min; Glucose 114 mg/dL (74-106); Potassium 3.9 mmol/L (3.5-5.1); Sodium Level 138 mmol/L (136-145)
== END 2021-12-15 08:14 | disposition home or self-care (01) ==
PROVIDERS: Emergency Provider Emergency Medicine; PCP Family Medicine; Visit Provider Emergency Medicine
DX: A08.4 Viral intestinal infection, unspecified (principal); Z87.891 Personal history of nicotine dependence
CPT/HCPCS: 80048; 96372; 96374; 99283; J7030; A4216; J2405

== ENCOUNTER 2023-04-30 09:20 | Emergency (ER) | payer BC, MEDICAID, SELFPAY ==
[2023-04-30 09:21] VITALS: BP 145/88; PULSE 105; RESP 18; TEMP 36.4; O2SAT 100; BMI 31.7
[2023-04-30 10:28] LABS: Absolute Lymphocyte Count 1.42 X10^3/uL (0.83-4.51); Absolute Neutrophil Count 5.3 X10^3/uL (2.0-7.7); Basophil# 0.02 X10^3/uL; Basophil% 0.3 % (0-1); Eosinophil# 0.02 X10^3/uL; Eosinophils% 0.3 % (0-5); Hematocrit 42.2 % (37-47); Lymphocyte # 1.42 X10^3/ul (0.83-4.51); Lymphocyte % 19.7 % (19-41); Mean Corp Hgb Conc 33.2 g/dL (32-36); Mean Corpuscular Hgb 29.3 pg (27.0-32.0); Mean Corpuscular Volume 88.3 fL (81-99); Mean Platelet Vol. 8.3 fl (6.2-12.0); Monocyte# 0.46 X10^3/uL; Monocyte% 6.4 % (0-10); NRBC Flagged by Analyzer 0 % (0-5); Neutrophil # 5.25 X10^3/uL (2.7-7.7); Neutrophil % 72.9 % (47-70); Platelet Count 265 K/mm3 (150-450); RBC Distribution Width CV 14.4 % (11.6-14.6); RBC Distribution Width SD 46.7 fl (35.1-43.9); Red Blood Count 4.78 M/mm3 (4.2-5.4); White Blood Count 7.2 K/mm3 (4.4-11.0)
--- NOTE | 2023-04-30 10:29 | EX.ED.VIS.PS ---
HPI HPI - Psych History of Present Illness Chief Complaint: Suicidal Informant: patient and spouse/S.O. Narrative Narrative: Patient sent in here after speaking with counseling center for evaluation likely admission. Increasing depression with suicidal thoughts with a plan. Patient does not take any current medications for depression. States all stemming from her delivery 2 years ago of her 2-year-old child. She had complications reporting a grade 4 tear requiring multiple surgeries. She reported June 2021 ended with C. difficile hospitalized and almost . She eventually had an ileostomy with reversal in [place]. She developed ventral hernia at the ostomy site with repair in September of last year. Normal. She reports she had multiple cardiac arrest. Throughout the surgeries. She then states there has been relationship issues 2 months ago she asked her for divorce. She had another friend that ended up being . She most recently met a different person who which she states is a psychopath. She finally was able to get into the counseling center a month ago after a month of weight. She has seen them weekly twice. She states persons on vacation and was not able to see in the last 2 weeks. She talked on the phone today. She states 2 months ago was walking with her sister and stated she was going to walk in front of a train. She states she she had thoughts of overdosing on medications this past August however did not go through with them. She states with her medical problems she is unable to be a mom. She was sent in here for evaluation. She denies alcohol use or any recreational drug use. Prior similar symptoms: Yes PFSH PFSH Medical History ADHD (attention deficit hyperactivity disorder) Anxiety Chronic pain Post traumatic stress disorder (PTSD) Home Medications phentermine 37.5 mg tablet mg 04/30/23 [History Last Taken Unknown] Allergy/AdvReac Type Severity Reaction Status Date / Time cat dander Allergy Hives Verified 04/30/23 09:26 house dust Allergy Hives Verified 04/30/23 09:26 peanut Allergy Swelling Verified 04/30/23 09:26 cranberry AdvReac Rash Verified 04/30/23 09:26 mold AdvReac Other Verified 04/30/23 09:26 morphine AdvReac Chest Verified 04/30/23 09:26 tightness Family History Aunt Cancer maternal aunt - uterine/cervical ca Surgical History Dehiscence of perineal wound Fourth degree perineal laceration History of gynecologic surgery Social History Smoking Status: Former smoker ROS ROS ED Constitutional Constitutional ED: Denies chills, fever(s) or sweats Eyes Eyes: Denies change in vision ENT ENT ED: Denies dysphagia or sore throat Cardiovascular Cardiovascular: Denies chest pain, leg edema, palpitations or racing heartbeat Respiratory/Chest Respiratory/Chest: Denies cough, dyspnea or dyspnea on exertion Gastrointestinal Gastrointestinal: Denies abdominal pain, diarrhea, nausea or vomiting Genitourinary Genitourinary ED: Denies dysuria, hematuria or urinary frequency Musculoskeletal Musculoskeletal: Denies back pain, extremity pain or neck pain Integumentary Denies rash or wounds Neurologic Neurologic: Denies headache(s), paresthesias or weakness Psychiatric Psychiatric: Reports depression, suicidal ideation and suicidal thoughts EXAM Physical Exam Const Vital Signs: 04/30/23 09:21 04/30/23 13:22 Temperature 97.6 F L 97.2 F L Temperature Source Temporal Pulse Rate 105 H 79 Respiratory Rate 18 16 Blood Pressure 145/88 H 126/97 H Blood Pressure Mean 107 106 Pulse Ox 100 97 Oxygen Delivery Method Room Air Positive well nourished and well developed General Appearance ED: well developed and NAD HEENT Reports moist mucous membranes normocephalic and atraumatic Eyes PERRL, EOMs intact bilaterally and conjunctivae normal General Eye ED: Yes normal appearance of both eyes Neck no lymphadenopathy and supple General: Negative for tenderness Chest Wall Chest: Negative for tenderness Resp normal respiratory effort and normal air movement Effort and Inspection: symmetric chest movement; Negative for respiratory distress Cardio regular rate, regular rhythm and no murmurs Peripheral Pulses: pulses 2+ throughout GI normal to inspection, nondistended, normoactive bowel sounds and non-tender GI Narrative: Healed midline abdominal scar, also healed scar and right lateral abdomen from previous ostomy. No hernia palpated. Palpation: Negative for guarding or rebound tenderness present Back/Spine no CVA tenderness and no thoracic nor lumbar tenderness Extremity normal to inspection General Extremety ED: Negative for edema or tenderness General Extremity: Negative for edema Neuro oriented x3 and no sensory deficits noted Sensorium / Orientation: awake and alert Psych Psych Narrative: Cooperative, flat affect, admits to suicidal ideation with a plan. Denies any hallucinations. Skin no rashes or lesions noted and no wounds MDM MDM MDM Narrative Medical decision making narrative: Interventions / MDM: Differential diagnosis: Depression with suicidal ideation with the plan. Diagnosis considered but do not suspect: N/A My EKG interpretation: N/A Imaging independently reviewed and interpreted by myself: N/A External documents reviewed: N/A Test considered but not ordered:N/A ED course: Patient extensive recent medical history leading to increasing depression. She is having now suicidal ideation with a plan. Denies any medical complaints at this time. Medical clearance lab will be obtained. I do feel she will benefit from inpatient hospitalization due to her suicidal thoughts with a plan. Significant other does report they live [place] to a railroad track. [place] slip was filled out. 1310: Patient evaluated by licensed marriage and family therapist in the ED. She is medically cleared. She is excepted to [facility] under service Dr. Ahumada. 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 This note was generated with [employer] dictation software. It may contain incorrect words, spelling, and punctuation that were not noted in checking the note before signing. Lab Data Attestation: I reviewed the patient's lab results. Labs: Laboratory Results - last 24 hr 04/30/23 04/30/23 10:15 13:00 WBC 7.2 RBC 4.78 Hgb 14.0 Hct 42.2 MCV 88.3 MCH 29.3 MCHC 33.2 RDW Std Deviation 46.7 H RDW Coeff of Wiliam 14.4 Plt Count 265 MPV 8.3 Immature Gran % (Auto) 0.400 Neut % (Auto) 72.9 H Lymph % (Auto) 19.7 Petroleum % (Auto) 6.4 Eos % (Auto) 0.3 Baso % (Auto) 0.3 Absolute Neuts (auto) 5.3 Absolute Lymphs (auto) 1.42 Nucleated RBC % 0 Sodium 140 Potassium 3.4 L Chloride 107 Carbon Dioxide 29.0 Anion Gap 4 L BUN 6 L Creatinine 0.68 Estim Creat Clear Calc 106.36 Est GFR (MDRD) Af Amer 133 Est GFR (MDRD) Non-Af 110 BUN/Creatinine Ratio 8.8 L Glucose 102 Calcium 8.9 Serum , Qual NEGATIVE Urine Opiates Screen NEGATIVE Urine Methadone Screen NEGATIVE Ur Barbiturates Screen NEGATIVE Ur Phencyclidine Scrn NEGATIVE Ur Amphetamines Screen POSITIVE H MDMA (Ecstasy) Screen NEGATIVE U Benzodiazepines Scrn NEGATIVE Urine Cocaine Screen NEGATIVE U Cannabinoids Screen NEGATIVE Ur Drug Screen Comment Ethyl Alcohol < 3.0 Discharge Plan Triage Chief Complaint: Suicidal ED Provider: Zac Courtney Dx/Rx/DC Orders Clinical Impression: Depression with suicidal ideation, Has access to planned means of suicide Prescriptions: No Action phentermine 37.5 mg tablet Patient Comments: TAKE 1 TABLET BY MOUTH ONCE DAILY Stand Alone Forms: ED Work / School Excuse Primary Care Provider: Alfredo Barroso Referrals: Alfredo Barroso MD [Primary Care Provider] - Disposition Disposition: Psychiatric Hospital or Unit Discharge Location: [facility] Discharge Date/Time: 04/30/23 14:02
[2023-04-30 10:42] LABS: Anion Gap 4 (5-15); BUN 6 mg/dL (7-18); BUN/Creat Ratio 8.8 RATIO (10-20); Calcium,Total 8.9 mg/dL (8.5-10.1); Chloride 107 mmol/L (98-107); Creatinine, Serum 0.68 mg/dL (0.55-1.02); EST Glomerular Filtration Rate 110 mL/min (>60); Est Glom Filt Rate - Afr Amer 133 mL/min (>60); Estimated Creatinine Clearance 106.36 ml/min; Glucose 102 mg/dL (74-106); Potassium 3.4 mmol/L (3.5-5.1); Sodium Level 140 mmol/L (136-145)
[2023-04-30 11:05] LABS: Alcohol, Blood (Medical)-Serum < 3.0 mg/dL
[2023-04-30 11:58] LABS: Internal QC Validated? YES +Cl - CLEAR BKGD; Pregnancy, Serum, hCG Quali. NEGATIVE Negative
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
--- NOTE | 2023-04-30 12:27 | ED.RN ---
meal given to pt, oh i'm not eating that, i'll just take some water.
--- NOTE | 2023-04-30 12:45 | CM.ED ---
Social Work SW contacted [facility], beds available; referrals faxed. Plan: referrals pending for inpatient psych placement Alison MARVIN, RAPHAEL
--- NOTE | 2023-04-30 13:10 | CM.ED ---
Social Work Patient accepted to [facility], [facility], N2N [phone]. [place] slip and drug screen results faxed to DS. SW updated care team, distance learning unit leader to arrange transportation. SW updated patient, patient reports understanding. Plan: Jackie Mohamud for inpatient psychiatric hospitalization Alison MARVIN, RAPHAEL
[2023-04-30 13:22] VITALS: BP 126/97; PULSE 79; RESP 16; TEMP 36.2; O2SAT 97
[2023-04-30 13:25] LABS: Amphetamine Urine VISTA POSITIVE (<1000 ng/mL); Barbiturate Urine VISTA NEGATIVE (< 200 ng/mL); Benzodiazepine Urine VISTA NEGATIVE (< 200 ng/mL); Cocaine Urine VISTA NEGATIVE (< 300 ng/mL); Ecstacy Urine VISTA NEGATIVE (< 500 ng/mL); Methadone Urine VISTA NEGATIVE (< 300 ng/mL); PCP Urine VISTA NEGATIVE (< 25 ng/mL); THC Urine VISTA NEGATIVE (< 50 ng/mL); Vista UDS pH Range 7
--- NOTE | 2023-04-30 14:02 | ED.RN ---
1335: Report called to Nalini at [facility].
--- NOTE | 2023-05-01 17:33 | CM.ED ---
Social Work SW contacted by patient from [facility] requesting SW assist patient in leaving the facility. Patient reports she has had to stay in her room due to having Cdiff and therefore unable to participate in group therapy. Patient also reports they are refusing to give her her weight lose medication. Patient reports the psychiatrist came into her room at 5am and provided little to no support. SW provided emotional support and encouraged her to express her concerns with staff at [facility] and encouraged patient to participate how ever she is able. SW explained that facility is who has control over discharge not [facility] as she is no longer at [facility]. Patient reports she will try to talk with the staff again but continued to state she wants to go home. Alison Aponte MSW, RAPHAEL
== END 2023-04-30 14:02 ==
PROVIDERS: Emergency Provider Emergency Medicine; PCP Family Medicine; Visit Provider Emergency Medicine
DX: R45.851 Suicidal ideations (principal); F32.A Depression, unspecified; Z63.5 Disruption of family by separation and divorce; Z87.891 Personal history of nicotine dependence
CPT/HCPCS: 80048; 80307; 82077; 84703; 85025; 87811; 99284

== ENCOUNTER 2023-05-18 07:06 | Inpatient (IN) | payer BC, MEDICAID, SELFPAY ==
[2023-05-18 07:07] VITALS: BP 128/84; PULSE 81; RESP 14; TEMP 36.6; O2SAT 99; BMI 28.4
--- NOTE | 2023-05-18 07:37 | CT_ITS ---
STUDY: CT ABDOMEN AND PELVIS WITH CONTRAST REASON FOR EXAM: Female, 28 years old. Abdominal pain and nausea. History of fourth degree perineal laceration. RADIATION DOSAGE (If Supplied By Facility): CTDIvol = ( 16.10 ) mGy, DLP = ( 1191.20 ) mGycm TECHNIQUE: Transaxial images were obtained from the dome of the diaphragm to the symphysis pubis without oral contrast. IV 100mL Isovue-300 was administered. Sagittal and coronal images were reconstructed. Individualized dose optimization techniques were used for this CT. COMPARISON: Comparison is made with prior study dated June 21, 2021. FINDINGS: The visualized lung bases are unremarkable. The visualized portions of the heart are within normal limits. Findings suggestive of a 1.8 cm benign-appearing hemangioma in the left lobe of the liver. Normal gallbladder and extrahepatic biliary system. Normal spleen. Normal pancreas. Normal bilateral adrenal glands. Normal right kidney. Normal left kidney. Normal visualized stomach. Moderate amount of fecal material is seen in the right hemicolon. Surgical anastomosis seen in the distal ileum. There is evidence of dilatation of the distal ileal loops with the dense material within the small bowel. Early distal small bowel obstruction should be ruled out. The appendix is visualized and appears normal. Normal abdominal aorta. Normal inferior vena cava. Normal retroperitoneum. Normal urinary bladder. There is a 2.2 cm cyst in the right ovary. IUD is seen within the uterus. Normal abdominal wall. Normal osseous structures. CT/Abdomen/Pelvis W IV Cont ONLY IMPRESSION: Findings suggestive of early''s distal small bowel obstruction with air-fluid and dense material within the distal ileum. Prior anastomotic site is seen in the distal ileum. Moderate amount of fecal material is seen in the colon. 2.2 cm cyst in the right ovary. This has decreased in size as compared to prior study. Electronically Signed: Yaya Soto MD at 9:15 EDT ,
--- NOTE | 2023-05-18 08:00 | EDS_ITS ---
HPI HPI - GI History of Present Illness Chief Complaint: Abd Pain Informant: patient Narrative Narrative: Presents severe mid abdominal pain waking at 4 AM with nausea. No vomiting. No fever chills or sweats. Yesterday bowel movement that was hard and had loose stools. No bowel movements or flatus since then. Reports history of ileostomy reversal with partial colectomy 2 years ago from colostrum difficile performed by Dr. Leon. This past September had ventral hernia and surgical hernia repair by Dr. Kaplan all done at [facility]. Denies history of bowel obstructions. She has an IUD. [facility] Medical History ADHD (attention deficit hyperactivity disorder) Anxiety Chronic pain Post traumatic stress disorder (PTSD) Home Medications phentermine 37.5 mg tablet 37.5 mg PO DAILY 04/30/23 [History Last Taken 05/17/23] nitrofurantoin monohydrate/macrocrystals 100 mg capsule 100 mg PO Q12H 05/18/23 [History Last Taken 05/16/23] vit no.95-ferrous fumarate 28 mg-folic acid 800 mcg tablet ( Multivitamins) 1 tab PO DAILY 05/18/23 [History Last Taken 05/17/23] Allergy/AdvReac Type Severity Reaction Status Date / Time cat dander Allergy Hives Verified 04/30/23 09:26 house dust Allergy Hives Verified 04/30/23 09:26 peanut Allergy Swelling Verified 04/30/23 09:26 cranberry AdvReac Rash Verified 04/30/23 09:26 mold AdvReac Other Verified 04/30/23 09:26 morphine AdvReac Chest Verified 04/30/23 09:26 tightness Family History Aunt Cancer maternal aunt - uterine/cervical ca Surgical History Dehiscence of perineal wound Fourth degree perineal laceration History of gynecologic surgery Social History Smoking Status: Former smoker ROS ROS ED Constitutional Constitutional ED: Denies chills, fever(s) or sweats Eyes Eyes: Denies change in vision ENT ENT ED: Denies dysphagia or sore throat Cardiovascular Cardiovascular: Denies chest pain, leg edema, palpitations or racing heartbeat Respiratory/Chest Respiratory/Chest: Denies cough, dyspnea or dyspnea on exertion Gastrointestinal Gastrointestinal: Reports abdominal pain and nausea; Denies diarrhea or vomiting Genitourinary Genitourinary ED: Denies dysuria, hematuria or urinary frequency Musculoskeletal Musculoskeletal: Denies back pain, extremity pain or neck pain Integumentary Denies rash or wounds Neurologic Neurologic: Denies headache(s), paresthesias or weakness EXAM Physical Exam Const Vital Signs: 05/18/23 07:07 05/18/23 10:07 Temperature 98 F Temperature Source Temporal Pulse Rate 81 71 Respiratory Rate 14 14 Blood Pressure 128/84 H 111/62 Blood Pressure Mean 98 78 Pulse Ox 99 98 Oxygen Delivery Method Room Air Room Air Positive well nourished and well developed Constitutional Narrative: Presentation blanket overhead moaning General Appearance ED: well developed HEENT Reports moist mucous membranes normocephalic and atraumatic Eyes PERRL, EOMs intact bilaterally and conjunctivae normal General Eye ED: Yes normal appearance of both eyes Neck no lymphadenopathy and supple General: Negative for tenderness Chest Wall Chest: Negative for tenderness Resp normal respiratory effort and normal air movement Effort and Inspection: symmetric chest movement; Negative for respiratory distress Cardio regular rate, regular rhythm and no murmurs Peripheral Pulses: pulses 2+ throughout GI GI Narrative: Tenderness mid abdomen, nondistended, minimal bowel sounds .negative Hawley's McBurney's. Back/Spine no CVA tenderness and no thoracic nor lumbar tenderness Extremity normal to inspection General Extremety ED: Negative for edema or tenderness General Extremity: Negative for edema Neuro oriented x3 and no sensory deficits noted Sensorium / Orientation: awake and alert Skin no rashes or lesions noted and no wounds MDM MDM MDM Narrative Medical decision making narrative: Interventions / MDM: Differential diagnosis: Diagnosis considered but do not suspect: N/A My EKG interpretation: N/A Imaging independently reviewed and interpreted by myself: CT abdomen pel with IV contrast: Small fluid air levels distal ileum concerning for bowel obstruction. External documents reviewed: N/A Test considered but not ordered:N/A ED course: Patient reported sudden worsening mid abdominal pain. Previous multiple abdominal surgeries. IV established abdominal labs ordered, IV fluids Zofran Dilaudid ordered for some control. CT abdomen pelvis IV contrast ordered for further evaluation. 0845: Abdominal labs stable white count slight elevated 11.1. hCG negative. Denied urinary symptoms denied cough. 1000: Results of CT scan concerns for early small bowel obstruction distal ileum. She has surgical anastomosis at the cecum. Reevaluation she is more comfortable not requesting more pain medicines at this time. I spoke with on- call surgeon Dr. Nj who will evaluate the patient in the ED. Patient evaluate by surgery, admitted to the hospital for further management. Re-evaluation: stable Disposition discussed with patient/family/significant other: Case discussed with consulting clinician: Surgeon Dr. Nj This note was generated with [employer] dictation software. It may contain incorrect words, spelling, and punctuation that were not noted in checking the note before signing. Lab Data Attestation: I reviewed the patient's lab results. Labs: Laboratory Results - last 24 hr 05/18/23 07:45 WBC 11.1 H RBC 4.84 Hgb 13.7 Hct 44.0 MCV 90.9 MCH 28.3 MCHC 31.1 L RDW Std Deviation 47.6 H RDW Coeff of Wiliam 14.3 Plt Count 299 MPV 8.7 Immature Gran % (Auto) 0.500 Neut % (Auto) 77.8 H Lymph % (Auto) 14.8 L [place] % (Auto) 6.0 Eos % (Auto) 0.5 Baso % (Auto) 0.4 Absolute Neuts (auto) 8.6 H Absolute Lymphs (auto) 1.63 Nucleated RBC % 0 Sodium 139 Potassium 4.6 Chloride 107 Carbon Dioxide 30.0 Anion Gap 2 L BUN 13 Creatinine 0.65 Estim Creat Clear Calc 129.98 Est GFR (MDRD) Af Amer 141 Est GFR (MDRD) Non-Af 116 BUN/Creatinine Ratio 20.1 H Glucose 102 Calcium 9.1 Total Bilirubin 1.20 H AST 7 L ALT 24 Alkaline Phosphatase 66 Total Protein 7.4 Albumin 3.5 Globulin 3.9 Albumin/Globulin Ratio 0.9 Lipase 35 Serum , Qual NEGATIVE Radiography Diagnostic Testing: Clinical Impression(s) from Imaging Studies Abdomen/Pelvis CT 05/18/23 07:37 IMPRESSION: Findings suggestive of early''s distal small bowel obstruction with air-fluid and dense material within the distal ileum. Prior anastomotic site is seen in the distal ileum. Moderate amount of fecal material is seen in the colon. 2.2 cm cyst in the right ovary. This has decreased in size as compared to prior study. Electronically Signed: Yaya Soto MD at 9:15 EDT , Discharge Plan Triage Chief Complaint: Abd Pain ED Provider: Zac Courtney Dx/Rx/DC Orders Clinical Impression: Small bowel obstruction, Abdominal pain, Nausea Primary Care Provider: Alfredo Barroso Disposition Disposition: Acute Care Hospital [facility] Discharge Date/Time: 05/18/23 11:04
[2023-05-18 08:02] LABS: Absolute Lymphocyte Count 1.63 X10^3/uL (0.83-4.51); Absolute Neutrophil Count 8.6 X10^3/uL (2.0-7.7); Basophil# 0.04 X10^3/uL; Basophil% 0.4 % (0-1); Eosinophil# 0.05 X10^3/uL; Eosinophils% 0.5 % (0-5); Hemoglobin 13.7 g/dL (12.0-15.0); Lymphocyte # 1.63 X10^3/ul (0.83-4.51); Lymphocyte % 14.8 % (19-41); Mean Corp Hgb Conc 31.1 g/dL (32-36); Mean Corpuscular Hgb 28.3 pg (27.0-32.0); Mean Corpuscular Volume 90.9 fL (81-99); Mean Platelet Vol. 8.7 fl (6.2-12.0); Monocyte# 0.66 X10^3/uL; NRBC Flagged by Analyzer 0 % (0-5); Neutrophil # 8.62 X10^3/uL (2.7-7.7); Neutrophil % 77.8 % (47-70); Platelet Count 299 K/mm3 (150-450); RBC Distribution Width CV 14.3 % (11.6-14.6); RBC Distribution Width SD 47.6 fl (35.1-43.9); Red Blood Count 4.84 M/mm3 (4.2-5.4); White Blood Count 11.1 K/mm3 (4.4-11.0)
[2023-05-18 08:03] LABS: Internal QC Validated? YES +Cl - CLEAR BKGD; Pregnancy, Serum, hCG Quali. NEGATIVE Negative
[2023-05-18] MEDS: HYDROmorphone 1 MG/ML Syringe IV ×4 (08:08→20:26)
[2023-05-18] MEDS: Ondansetron 4 MG/2 ML Vial IV ×3 (08:08→18:19)
[2023-05-18] MEDS: 0.9% Normal Saline 1,000 ML 125 ML IV ×3 (08:11→17:55)
[2023-05-18 08:12] LABS: ALB/GLOB Ratio 0.9 RATIO (0.9-2.4); AST(SGOT) 7 U/L (15-37); Alanine Aminotransfer ALT/SGPT 24 U/L (13-56); Albumin, Serum 3.5 g/dL (3.2-5.0); Alkaline Phosphatase 66 U/L (45-117); Anion Gap 2 (5-15); BUN 13 mg/dL (7-18); BUN/Creat Ratio 20.1 RATIO (10-20); Calcium,Total 9.1 mg/dL (8.5-10.1); Chloride 107 mmol/L (98-107); Creatinine, Serum 0.65 mg/dL (0.55-1.02); EST Glomerular Filtration Rate 116 mL/min (>60); Est Glom Filt Rate - Afr Amer 141 mL/min (>60); Estimated Creatinine Clearance 129.98 ml/min; Globulin 3.9 g/dL (2.2-4.2); Glucose 102 mg/dL (74-106); Lipase 35 U/L (13-75); Potassium 4.6 mmol/L (3.5-5.1); Protein, Total 7.4 g/dL (6.4-8.2); Sodium Level 139 mmol/L (136-145)
[2023-05-18 10:07] VITALS: BP 111/62; PULSE 71; RESP 14; O2SAT 98
[2023-05-18] MEDS: 0.9% Normal Saline 1,000 ML 150 ML IV (10:20)
--- NOTE | 2023-05-18 10:27 | PCM.HP.STD ---
HPI - General HPI Narrative CARLOS CHAVEZ, is a 28 F who presents with abdominal pain. Patient says the pain woke her up this morning at 4 AM. Patient states that the pain is in the middle of her abdomen and the right lower quadrant. Patient says that she does feel like she is nauseous but has not vomited. She is not passing any flatus and did not have a bowel movement this morning but did have a bowel movement yesterday. Patient has had a history of ileostomy with reversal and ventral hernia repair all within the last 2 years. The patient was also recently on Macrobid for possible UTI versus kidney stone. She says she was having burning with urination and blood in her urine. [facility] Medical History ADHD (attention deficit hyperactivity disorder) Anxiety Chronic pain Post traumatic stress disorder (PTSD) Home Medications phentermine 37.5 mg tablet 37.5 mg PO DAILY 04/30/23 [History Last Taken 05/17/23] nitrofurantoin monohydrate/macrocrystals 100 mg capsule 100 mg PO Q12H 05/18/23 [History Last Taken 05/16/23] vit no.95-ferrous fumarate 28 mg-folic acid 800 mcg tablet ( Multivitamins) 1 tab PO DAILY 05/18/23 [History Last Taken 05/17/23] Allergy/AdvReac Type Severity Reaction Status Date / Time cat dander Allergy Hives Verified 04/30/23 09:26 house dust Allergy Hives Verified 04/30/23 09:26 peanut Allergy Swelling Verified 04/30/23 09:26 cranberry AdvReac Rash Verified 04/30/23 09:26 mold AdvReac Other Verified 04/30/23 09:26 morphine AdvReac Chest Verified 04/30/23 09:26 tightness Family History Aunt Cancer maternal aunt - uterine/cervical ca Surgical History Dehiscence of perineal wound Fourth degree perineal laceration History of gynecologic surgery Social History Smoking Status: Former smoker ROS Constitutional Constitutional: Denies anorexia or fatigue Eyes Eyes: Denies blurry vision ENT HEENT: Denies abnormal hearing Cardiovascular Cardiovascular: Denies chest pain Respiratory/Chest Respiratory/Chest: Denies cough or dyspnea Gastrointestinal Gastrointestinal: Reports abdominal pain and nausea; Denies constipation, diarrhea, dysphagia or vomiting Genitourinary Genitourinary: Denies change in urinary stream Musculoskeletal Musculoskeletal: Denies abnormal gait or back pain Integumentary Integumentary: Denies jaundice Neurologic Neurologic: Denies abnormal gait or dizziness Psychiatric Psychiatric: Reports depression Endocrine Endocrinology: Denies flushing Hematologic/Lymphatic Hematologic/Lymphatic: Denies easy bleeding Vital Signs Vital Signs Vital Signs: 05/18/23 07:07 05/18/23 10:07 Temperature 98 F Temperature Source Temporal Pulse Rate 81 71 Respiratory Rate 14 14 Blood Pressure 128/84 H 111/62 Blood Pressure Mean 98 78 Pulse Ox 99 98 Oxygen Delivery Method Room Air Room Air Weight Weight: 186 lb 15.232 oz Body Mass Index (BMI) 28.4 Physical Exam Const oriented x3 and no apparent distress Resp normal respiratory effort Cardio regular rate and regular rhythm GI soft to palpation Inspection: Negative for abdominal distention Palpation: tender RLQ and periumbilical Extremity normal to inspection Results Lab / Micro Data 05/18/23 07:45 05/18/23 07:45 Labs: Laboratory Results - last 24 hr 05/18/23 07:45: WBC 11.1 H, RBC 4.84, Hgb 13.7, Hct 44.0, MCV 90.9, MCH 28.3, MCHC 31.1 L, RDW Std Deviation 47.6 H, RDW Coeff of Wiliam 14.3, Plt Count 299, MPV 8.7, Immature Gran % (Auto) 0.500, Neut % (Auto) 77.8 H, Lymph % (Auto) 14.8 L, [place] % (Auto) 6.0, Eos % (Auto) 0.5, Baso % (Auto) 0.4, Absolute Neuts (auto) 8.6 H, Absolute Lymphs (auto) 1.63, Nucleated RBC % 0, Sodium 139, Potassium 4.6, Chloride 107, Carbon Dioxide 30.0, Anion Gap 2 L, BUN 13, Creatinine 0.65, Estim Creat Clear Calc 129.98, Est GFR (MDRD) Af Amer 141, Est GFR (MDRD) Non-Af 116, BUN/Creatinine Ratio 20.1 H, Glucose 102, Calcium 9.1, Total Bilirubin 1.20 H, AST 7 L, ALT 24, Alkaline Phosphatase 66, Total Protein 7.4, Albumin 3.5, Globulin 3.9, Albumin/Globulin Ratio 0.9, Lipase 35, Serum , Qual NEGATIVE Radiology Impression Abdomen/Pelvis CT 05/18/23 07:37 IMPRESSION: Findings suggestive of early''s distal small bowel obstruction with air-fluid and dense material within the distal ileum. Prior anastomotic site is seen in the distal ileum. Moderate amount of fecal material is seen in the colon. 2.2 cm cyst in the right ovary. This has decreased in size as compared to prior study. Electronically Signed: Yaya Soto MD at 9:15 EDT , Assessment & Plan Assessment/Plan (1) SBO (small bowel obstruction): PLAN: Patient was awoken with abdominal pain and had a CT scan which showed a possible early small bowel obstruction. This appears to be at the area of her prior anastomosis. It appears that she has fecalized stool proximal to this. She does have a copious amount of stool in the colon indicating this is not likely a complete obstruction. The obstruction may be happening due to dehydration and the fecalization of the stool in the small bowel. I will admit her and started on IV fluids and observed for a day. If she is still having pain and no bowel function tomorrow we will order a small bowel follow-through. Patient was also recently seen for suicidal ideation and reports that she has not taken her antidepressants that were prescribed. Patient is in agreement with the plan. Axel Nj MD Pager: [facility] [address] [place] [address], [address] [place] [address] Office:
[2023-05-18 10:48] VITALS: BP 148/79; PULSE 80; RESP 14; TEMP 36.2; O2SAT 100
[2023-05-18 11:09] VITALS: BMI 28.9
[2023-05-18 11:21] VITALS: BP 126/82; PULSE 82; RESP 16; TEMP 36.4; O2SAT 100
[2023-05-18 16:10] LABS: Bacteria 0 SEEN /hpf (None Seen); Mucous, Urine 0 SEEN /hpf (<or=2+); Red Blood Cells-Urine 0 SEEN /hpf (0-5); Squamous Epithelial Cells - UA 0 SEEN /hpf (5-10); White Blood Cells 0 SEEN /hpf (0-5)
[2023-05-18 16:14] LABS: Color, Urine Yellow (Yellow); Glucose, Dipstick Normal (Normal); Ketone-Dipstick Negative (Negative); Leukocyte Esterase-Dipstick 25 /ul (Negative); Nitrite-Dipstick Negative (Negative); Occult Blood-Urine Negative /ul (Negative); Protein-Dipstick 15 mg/dl (Negative); Urine Bilirubin Dipstick Negative (Negative); Urine Clarity Sl. Cloudy (Clear); Urine Urobilinogen Normal (Normal)
[2023-05-18 17:21] VITALS: BP 144/82; PULSE 77; RESP 16; TEMP 36.8; O2SAT 100
[2023-05-18] MEDS: 0.9% Saline Lock 10 ML Syringe IV (18:20)
[2023-05-18 20:28] VITALS: BP 135/82; PULSE 78; RESP 16; TEMP 36.6; O2SAT 100
[2023-05-19] MEDS: 0.9% Normal Saline 1,000 ML 125 ML IV ×2 (01:14→08:34)
[2023-05-19] MEDS: Ketorolac 15 MG/ML Vial IV (01:16)
[2023-05-19 05:28] VITALS: BP 107/59; PULSE 76; RESP 16; TEMP 36.7; O2SAT 98
[2023-05-19 06:59] LABS: Absolute Lymphocyte Count 2.44 X10^3/uL (0.83-4.51); Absolute Neutrophil Count 5.2 X10^3/uL (2.0-7.7); Basophil# 0.02 X10^3/uL; Basophil% 0.2 % (0-1); Eosinophil# 0.06 X10^3/uL; Eosinophils% 0.7 % (0-5); Hematocrit 37.4 % (37-47); Hemoglobin 12.1 g/dL (12.0-15.0); Lymphocyte # 2.44 X10^3/ul (0.83-4.51); Lymphocyte % 29.5 % (19-41); Mean Corp Hgb Conc 32.4 g/dL (32-36); Mean Corpuscular Hgb 28.6 pg (27.0-32.0); Mean Corpuscular Volume 88.4 fL (81-99); Mean Platelet Vol. 8.6 fl (6.2-12.0); Monocyte# 0.54 X10^3/uL; Monocyte% 6.5 % (0-10); NRBC Flagged by Analyzer 0 % (0-5); Neutrophil # 5.19 X10^3/uL (2.7-7.7); Neutrophil % 62.9 % (47-70); Platelet Count 226 K/mm3 (150-450); RBC Distribution Width CV 14.3 % (11.6-14.6); RBC Distribution Width SD 46.5 fl (35.1-43.9); Red Blood Count 4.23 M/mm3 (4.2-5.4); White Blood Count 8.3 K/mm3 (4.4-11.0)
[2023-05-19 07:26] LABS: Anion Gap 4 (5-15); BUN 6 mg/dL (7-18); Calcium,Total 7.9 mg/dL (8.5-10.1); Chloride 111 mmol/L (98-107); Creatinine, Serum 0.43 mg/dL (0.55-1.02); EST Glomerular Filtration Rate 186 mL/min (>60); Est Glom Filt Rate - Afr Amer 225 mL/min (>60); Estimated Creatinine Clearance 196.49 ml/min; Glucose 87 mg/dL (74-106); Phosphorus 2.7 mg/dL (2.5-4.9); Potassium 3.8 mmol/L (3.5-5.1); Sodium Level 140 mmol/L (136-145)
[2023-05-19 09:00] VITALS: BP 112/68; PULSE 75; RESP 16; TEMP 36.7; O2SAT 98
--- NOTE | 2023-05-19 09:00 | RAD_ITS ---
STUDY: GASTROGRAFIN SMALL BOWEL FOLLOW-THROUGH EXAMINATION. REASON FOR EXAM: Female, 28 years old. sbo -- normal gastrograffin study FLUOROSCOPY TIME (if supplied): ( 70 seconds. ) minutes/seconds. 29.72 mGy. 13 images were obtained. TECHNIQUE: A salvage repairer film was obtained. Following this, a mixture of 120 mL of Gastrografin and water was given to the patient. COMPARISON: None. FINDINGS: On the salvage repairer image, moderate amount of fecal material is seen throughout the colon. The is seen within the uterus. Mild dilatation of the distal small bowel. The colon is opacified at 60 minutes. RAD/Small Bowel Series Only IMPRESSION: No evidence of bone obstruction. Mild degree of the dilated distal small bowel loops. Electronically Signed: Yaya Soto MD at 12:27 EDT ,
--- NOTE | 2023-05-19 11:40 | CASEMGMT ---
RN?CM?[employer] ANALYST?CM?to room to meet with patient for initial transition planning/care coordination?assessment.?RN?CM?introduced self and role at [facility].? Pt voices understanding and consents to?assessment?at this time.? Pt sitting up in bed in no distress at this time.? Pt is A/O at this time and answers all questions appropriately.?? Care providers, pharmacy, and demographics verified/updated at this time. PCP: Dr Barroso Specialists: Dr Zamarripa-BUS DRIVER SUPERVISOR, [facility] Kimberley. Dr James-neurosurgeon, [facility] Murphy. Dr Brasher-for weight loss @ [facility]. Preferred Pharmacy: [facility] Insurance: [employer] [place] Prescription Benefit:? Yes Living Will/HPOA:?Pt does not currently have LW/HCPOA and declines info at this time. LNOK: , [place]. Living Arrangements: Lives w/her and 2-yr-old dtr in 1st floor apt w/no steps to enter. Independent. Transportation:?Pt states drives self and states no transportation concerns at this time.? also drives. DME: ? Denies using any DME and denies needs.? HHC/SNF: No hx of SNF. Has had HHC in the past after ileostomy. Declines needs and no needs identified. Pt wishes to return home and states has no concerns with going home at time of discharge.? CM?to follow for any discharge planning/needs.? Pt voices no concerns/needs at this time.? Advised pt to ask for?CM?if any questions/concerns/needs arise.? Voices understanding. PLAN:??Home Nicole ARAGONN?RN?CM
--- NOTE | 2023-05-19 12:26 | PCM.PN.SRG ---
Subjective Subjective This morning the patient says that she was passing some gas. She says the nausea improved. She was still having some periumbilical pain. Objective Data Objective Data Vital Signs: Vital Signs Temp Pulse Resp BP Pulse Ox O2 Del Method 98.1 F 75 16 112/68 98 Room Air 05/19/23 09:00 05/19/23 09:00 05/19/23 09:00 05/19/23 09:00 05/19/23 09:00 05/19/23 09:00 Oxygen Delivery Method Room Air Weight: 190 lb 4.8 oz Body Mass Index (BMI) 28.9 Intake & Output: Intake and Output for Last 24 Hours 05/17/23 05/18/23 05/19/23 23:59 23:59 23:59 Intake Total 1423.75 / 1423.75 1831.25 / 1831.25 Output Total 800 / 1150 350 / 350 Balance 623.75 / 273.75 1481.25 / 1481.25 Lab / Micro Data 05/19/23 06:29 05/19/23 06:29 Labs: Laboratory Results - last 24 hr 05/18/23 13:15: Urine Color Yellow, Urine Clarity Sl. Cloudy, Urine pH 7.0, Ur Specific [place] 1.010, Urine Protein 15 H, Urine Glucose (UA) Normal, Urine Ketones Negative, Urine Occult Blood Negative, Urine Nitrite Negative, Urine Bilirubin Negative, Urine Urobilinogen Normal, Ur Leukocyte Esterase 25 H, Urine RBC 0 SEEN, Urine WBC 0 SEEN, Ur Squamous Epith Cells 0 SEEN, Urine Bacteria 0 SEEN, Urine Mucus 0 SEEN 05/19/23 06:29: WBC 8.3, RBC 4.23, Hgb 12.1, Hct 37.4, MCV 88.4, MCH 28.6, MCHC 32.4, RDW Std Deviation 46.5 H, RDW Coeff of Wiliam 14.3, Plt Count 226, MPV 8.6, Immature Gran % (Auto) 0.200, Neut % (Auto) 62.9, Lymph % (Auto) 29.5, [place] % (Auto) 6.5, Eos % (Auto) 0.7, Baso % (Auto) 0.2, Absolute Neuts (auto) 5.2, Absolute Lymphs (auto) 2.44, Nucleated RBC % 0, Sodium 140, Potassium 3.8, Chloride 111 H, Carbon Dioxide 25.0, Anion Gap 4 L, BUN 6 L, Creatinine 0.43 L, Estim Creat Clear Calc 196.49, Est GFR (MDRD) Af Amer 225, Est GFR (MDRD) Non-Af 186, BUN/Creatinine Ratio 14.0, Glucose 87, Calcium 7.9 L, Phosphorus 2.7, Magnesium 2.0 Physical Exam Resp normal respiratory effort Cardio regular rate and regular rhythm GI soft to palpation Palpation: tender Assessment & Plan Assessment/Plan (1) Small bowel obstruction: PLAN: The patient started to resume some bowel function. She was still having some pain so I ordered a small bowel follow-through. The contrast entered the colon quickly with no sign of obstruction. She was started on a diet after this. If she tolerates a diet I will discharge her home this afternoon. Axel Nj MD Pager: [facility] [address] [place] [address], [address] [place] [address] Office:
--- NOTE | 2023-05-19 13:50 | DS.PCM_ITS ---
Providers Date of Admission: 05/18/23 Primary Care Physician: Dr. Alfredo Barroso MD Reason For Visit: SMALL BOWEL OBSTRUCTION Diagnosis Discharge Diagnosis (1) Small bowel obstruction: Status: Acute Code(s): K56.609 - Unspecified intestinal obstruction, unspecified as to partial versus complete obstruction Plan: The patient started to resume some bowel function. She was still having some pain so I ordered a small bowel follow-through. The contrast entered the colon quickly with no sign of obstruction. She was started on a diet after this. If she tolerates a diet I will discharge her home this afternoon. Axel Nj MD Pager: [facility] [address] [place] [address], [address] [place] [address] Office: Medications at Discharge Home Medications phentermine 37.5 mg tablet 37.5 mg PO DAILY 04/30/23 nitrofurantoin monohydrate/macrocrystals 100 mg capsule 100 mg PO Q12H 05/18/23 vit no.95-ferrous fumarate 28 mg-folic acid 800 mcg tablet ( Multivitamins) 1 tab PO DAILY 05/18/23 Hospital Course Operations None Procedures None Summary of Care Provided Hospital Course: Patient was admitted with a small bowel obstruction. It appeared that there was fecalized stool stuck at her anastomosis. Patient was admitted and hydrated and the following morning she had improvement of her nausea and pain. She has small bowel follow-through which showed no signs of obstruction. She was started on a diet and was tolerating a diet she was discharged home. Weight / BMI Weight Weight: 190 lb 4.8 oz Body Mass Index (BMI) 28.9 ABG / Lab / Microbiology Data 05/19/23 06:29 05/19/23 06:29 Laboratory: Laboratory Results - last 24 hr 05/18/23 13:15: Urine Color Yellow, Urine Clarity Sl. Cloudy, Urine pH 7.0, Ur Specific [place] 1.010, Urine Protein 15 H, Urine Glucose (UA) Normal, Urine Ketones Negative, Urine Occult Blood Negative, Urine Nitrite Negative, Urine Bilirubin Negative, Urine Urobilinogen Normal, Ur Leukocyte Esterase 25 H, Urine RBC 0 SEEN, Urine WBC 0 SEEN, Ur Squamous Epith Cells 0 SEEN, Urine Bacteria 0 SEEN, Urine Mucus 0 SEEN 08/08/23 06:29: WBC 8.3, RBC 4.23, Hgb 12.1, Hct 37.4, MCV 88.4, MCH 28.6, MCHC 32.4, RDW Std Deviation 46.5 H, RDW Coeff of Wiliam 14.3, Plt Count 226, MPV 8.6, Immature Gran % (Auto) 0.200, Neut % (Auto) 62.9, Lymph % (Auto) 29.5, [place] % (Auto) 6.5, Eos % (Auto) 0.7, Baso % (Auto) 0.2, Absolute Neuts (auto) 5.2, Absolute Lymphs (auto) 2.44, Nucleated RBC % 0, Sodium 140, Potassium 3.8, Chloride 111 H, Carbon Dioxide 25.0, Anion Gap 4 L, BUN 6 L, Creatinine 0.43 L, Estim Creat Clear Calc 196.49, Est GFR (MDRD) Af Amer 225, Est GFR (MDRD) Non-Af 186, BUN/Creatinine Ratio 14.0, Glucose 87, Calcium 7.9 L, Phosphorus 2.7, Magnesium 2.0 Radiography Diagnostic Testing: Radiology Impression Small Bowel X-Ray 05/19/23 09:00 IMPRESSION: No evidence of bone obstruction. Mild degree of the dilated distal small bowel loops. Electronically Signed: Yaya Soto MD at 12:27 EDT Reading Location ID and State: [address] [place] [address] , Service support , D/C Instructions Discharge Diet: No restrictions Discharge Activity: Return to Normal Activity Call your doctor if you observe: Fever of 101 or Higher, Inability to have a bowel movement and Uncontrolled pain Please Follow Up With: Axel Nj MD When: as needed, Meaningful Use Info Meaningful Use Diagnoses (Choose all that apply): None applicable Discharge Plan Admission Admit Date/Time: 05/18/23 10:23 Attending Provider: Axel Nj Primary Care Provider: Alfredo Barroso Discharge Orders/Prescriptions Prescriptions: Continued phentermine 37.5 mg tablet 37.5 mg PO DAILY Patient Comments: TAKE 1 TABLET BY MOUTH ONCE DAILY nitrofurantoin monohyd/m-cryst 100 mg capsule 100 mg PO Q12H Patient Comments: TAKE 1 CAPSULE BY MOUTH 2 TIMES A DAY WITH MEALS FOR 7 DAYS PNV cmb#95-ferrous fumarate-FA [ Multivitamins] 28 mg iron- 800 mcg tablet 1 tab PO DAILY Referrals / Follow Up: Alfredo Barroso MD [Primary Care Provider] - Disposition Disposition (needs filled in before D/C Order can be placed): Home, Self Care
--- NOTE | 2023-05-19 14:22 | CASEMGMT ---
Social Work Pt with recent history of Suicidal Ideation and psychiatric placement. SW met with pt and introduced self and role of SW. Pt agreeable to speak with SW. Pt states since return home from psychiatric placement, pt has been meeting with her counselor once a week (pt has a video conference with him this afternoon that she plans to keep) and with a peer support group 3 times a week. Pt states her counselor has recommended [facility] as well but pt did not have information on this. SW provided written information on the [facility]. Pt denies any SI at this time and identifies her daughter and excitement about a new job as protective factors and future orientation. Pt denies any further needs at this time. MICHELA Conteh
--- NOTE | 2023-05-19 14:45 | PHA.DC.MR.R ---
Pharmacy [place] Med Reconciliation Pharmacy Service has performed discharge medication reconciliation for this patient. The patient's discharge medication list was reviewed for discrepancies and discrepancies were resolved. Medications at Discharge Home Medications phentermine 37.5 mg tablet 37.5 mg PO DAILY 04/30/23 nitrofurantoin monohydrate/macrocrystals 100 mg capsule 100 mg PO Q12H 05/18/23 vit no.95-ferrous fumarate 28 mg-folic acid 800 mcg tablet ( Multivitamins) 1 tab PO DAILY 05/18/23
[2023-05-19 15:51] VITALS: BP 118/70; PULSE 66; RESP 18; TEMP 36.7; O2SAT 97
== END 2023-05-19 16:30 | disposition home or self-care (01) | DRG 390 ==
LOC: ED 07:57 → MS3 15:03
PROVIDERS: Admitting Provider Surgery; Emergency Provider Emergency Medicine; PCP Family Medicine; Visit Provider Surgery
DX: K56.609 Unspecified intestinal obstruction, unspecified as to partial versus complete obstruction (principal); E86.0 Dehydration; Z87.891 Personal history of nicotine dependence; Z97.5 Presence of (intrauterine) contraceptive device; Z90.49 Acquired absence of other specified parts of digestive tract
CPT/HCPCS: 36415; 74177; 74250; 80048; 80053; 81001; 83690; 83735; 84100; 84703; 85025; 99285; J7030; Q9967; A4216; J2405

== ENCOUNTER 2023-07-22 19:47 | Emergency (ER) | payer BC, MEDICAID, SELFPAY ==
[2023-07-22 19:48] VITALS: BP 151/90; PULSE 98; RESP 18; TEMP 36.6; O2SAT 98; BMI 38.2
[2023-07-22 20:05] LABS: Bacteria 0 SEEN /hpf (None Seen); Mucous, Urine 0 SEEN /hpf (<or=2+); Red Blood Cells-Urine 0 SEEN /hpf (0-5); White Blood Cells 0 SEEN /hpf (0-5)
[2023-07-22 20:18] LABS: Color, Urine Yellow (Yellow); Glucose, Dipstick Normal (Normal); Ketone-Dipstick Negative (Negative); Leukocyte Esterase-Dipstick 25 /ul (Negative); Nitrite-Dipstick Negative (Negative); Occult Blood-Urine Negative /ul (Negative); Protein-Dipstick 15 mg/dl (Negative); Urine Bilirubin Dipstick Negative (Negative); Urine Clarity Clear (Clear); Urine Urobilinogen Normal (Normal)
[2023-07-22 20:43] LABS: Squamous Epithelial Cells - UA 0-5 SEEN /hpf (5-10)
--- NOTE | 2023-07-22 20:53 | EDS_ITS ---
HPI HPI - Female History of Present Illness Chief Complaint: Vag Bleeding Informant: patient Bleeding Issue: Positive for Vaginal bleeding Onset: Days Timing: Intermittent Current Severity: Heavy Associated Symptoms Associated Symptoms: Negative for Dysuria or Frequency P: 1 Ab: 0 Narrative Narrative: 28-year-old female history of PTSD, chronic pain, traumatic delivery in the past due to a forceps delivery. G1, P1 Ab0. Does not believe she is currently . 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 And then started having heavier vaginal bleeding the last 3 days. Feels lightheaded and has a headache. No pelvic pain. No dysuria. No fever. No discharge. Prior similar symptoms: No Recent Illness/Hospitalization: No PFSH PFSH Medical History ADHD (attention deficit hyperactivity disorder) Anxiety Chronic pain Post traumatic stress disorder (PTSD) SBO (small bowel obstruction) Home Medications phentermine 37.5 mg tablet 37.5 mg PO DAILY 04/30/23 [History Last Taken 05/17/23] nitrofurantoin monohydrate/macrocrystals 100 mg capsule 100 mg PO Q12H 05/18/23 [History Last Taken 05/16/23] vit no.95-ferrous fumarate 28 mg-folic acid 800 mcg tablet ( Multivitamins) 1 tab PO DAILY 05/18/23 [History Last Taken 05/17/23] Allergy/AdvReac Type Severity Reaction Status Date / Time cat dander Allergy Hives Verified 07/22/23 19:50 house dust Allergy Hives Verified 07/22/23 19:50 peanut Allergy Swelling Verified 07/22/23 19:50 cranberry AdvReac Rash Verified 07/22/23 19:50 mold AdvReac Other Verified 07/22/23 19:50 morphine AdvReac Chest Verified 07/22/23 19:50 tightness Family History Aunt Cancer maternal aunt - uterine/cervical ca Surgical History Dehiscence of perineal wound Fourth degree perineal laceration History of gynecologic surgery Social History Smoking Status: Former smoker ROS ROS ED ROS Narrative Lightheaded. Vaginal bleeding. Review of Systems ROS Unobtainable: Denies due to encephalopathy Constitutional Constitutional ED: Denies chills or fever(s) Eyes Eyes: Denies blurry vision ENT ENT ED: Denies ear pain Cardiovascular Cardiovascular: Denies chest pain or palpitations Respiratory/Chest Respiratory/Chest: Denies cough or dyspnea Gastrointestinal Gastrointestinal: Reports nausea; Denies abdominal pain, constipation, diarrhea, melena or vomiting Genitourinary Genitourinary ED: Denies dysuria or hematuria Musculoskeletal Musculoskeletal: Denies arthralgias Integumentary Denies abscess or Abrasions Neurologic Neurologic: Reports headache(s) Psychiatric Psychiatric: Denies anxiety or depression Endocrine Endocrinology: Denies heat intolerance Hematologic/Lymphatic Hematologic/Lymphatic: Denies easy bleeding or easy bruising Allergic/Immunologic Allergic/Immunologic ED: Denies mouth swelling or tongue swelling EXAM Physical Exam Narrative Exam Narrative: Well-appearing 28-year-old female. Vital signs stable afebrile. H EENT exam unremarkable. Neck nontender. No lymphadenopathy. Lungs clear to auscultation. Heart regular rhythm no murmur. Abdomen soft nontender normal b owel sounds no peritoneal signs. No distention. Moves all 4 extremities. Nontender no edema. Neurologically she is awake alert with no focal motor deficits. Const Vital Signs: 07/22/23 19:48 Temperature 97.8 F Temperature Source Temporal Pulse Rate 98 Respiratory Rate 18 Blood Pressure 151/90 H Blood Pressure Mean 110 Pulse Ox 98 Oxygen Delivery Method Room Air Positive well nourished and well developed; Negative for cachectic, contractures or unkempt General Appearance ED: well developed and NAD; Negative for unkempt, cachectic, contractures or pallor Nutritional Appearance: Negative for cachectic HEENT Reports moist mucous membranes Negative for trauma or tenderness Eyes PERRL and EOMs intact bilaterally General Eye ED: Negative for pale conjunctiva or scleral icterus Neck no lymphadenopathy, supple and no JVD General: Negative for other Thyroid: Negative for tender Chest Wall inspection of chest normal and palpation of chest normal Chest: Negative for other Resp normal respiratory effort and clear to auscultation bilaterally Effort and Inspection: Negative for pain with movement Auscultation: Negative for rales, rhonchi or wheezes Cardio regular rate, regular rhythm, S1 normal heart sound, no murmurs and no JVD Rate: Negative for bradycardia or tachycardic Rhythm: Negative for abnormal rhythm GI normal to inspection, nondistended, normoactive bowel sounds, soft to palpation, non-tender, non-distended and no masses Auscultation: normoactive bowel sounds Palpation: Negative for tender or guarding Back/Spine no CVA tenderness General Back: Negative for CVA tenderness Cervical Spine: Negative for cervical spine tenderness Thoracic Spine / Upper Back: Negative for thoracic spinal tenderness Lumbar Spine / Lower Back: Negative for lumbar spinal tenderness Extremity normal to inspection and full ROM General Extremety ED: Negative for edema or tenderness General Extremity: Negative for edema Neuro oriented x3 and CN's II-XII intact bilaterally Sensorium / Orientation: alert, oriented to person, oriented to place and oriented to time; Negative for confused, lethargic or stuporous Motor Exam: strength 5/5 throughout Psych mental status grossly normal Appearance: Negative for unkempt Attitude: No agitated Speech: No other Mood & Affect: Negative for depressed, anxious or tearful Skin no rashes or lesions noted and no wounds General Skin Exam: Negative for jaundice or pallor Rashes: No rashes noted Trauma: Negative for other MDM MDM MDM Narrative Medical decision making narrative: 28-year-old female with vaginal bleeding. Rule out anemia. Rule out . Clinically does not appear to be an ectopic. She does not seem anemic at least on exam. I will hold off for type and screen her at this time. She will get IV fluids. And Zofran for nausea. Repeat exam patient doing well at 10:18 PM. She will be discharged home with outpatient follow-up with [facility]. Her prior OB practice is closed and left town. She will be referred to Dr. Kaye. Lab Data Attestation: I reviewed the patient's lab results. Lab results narrative: CBC normal. White count of 9.9. H&H of 13.4 and 41. Platelets 262. Serum test negative. Urinalysis normal. No white nor red cells. No nitrates or bacteria. Prior to prior labs her hemoglobin hematocrit are baseline or better. No signs of any significant blood loss. BMP unremarkable. Gap of 3. Unremarkable BUN/creatinine. Glucose normal. Labs: Laboratory Results - last 24 hr 07/22/23 07/22/23 19:56 21:00 WBC 9.9 RBC 4.70 Hgb 13.4 Hct 41.5 MCV 88.3 MCH 28.5 MCHC 32.3 RDW Std Deviation 41.3 RDW Coeff of Wiliam 12.7 Plt Count 262 MPV 8.3 Immature Gran % (Auto) 0.400 Neut % (Auto) 69.8 Lymph % (Auto) 22.7 [place] % (Auto) 6.4 Eos % (Auto) 0.3 Baso % (Auto) 0.4 Absolute Neuts (auto) 6.9 Absolute Lymphs (auto) 2.24 Nucleated RBC % 0 Sodium 138 Potassium 4.5 Chloride 107 Carbon Dioxide 28.0 Anion Gap 3 L BUN 10 Creatinine 0.61 Estim Creat Clear Calc 108.60 Est GFR (MDRD) Af Amer 151 Est GFR (MDRD) Non-Af 124 BUN/Creatinine Ratio 16.4 Glucose 79 Calcium 8.7 Serum , Qual NEGATIVE Urine Color Yellow Urine Clarity Clear Urine pH 7.0 Ur Specific [place] 1.010 Urine Protein 15 H Urine Glucose (UA) Normal Urine Ketones Negative Urine Occult Blood Negative Urine Nitrite Negative Urine Bilirubin Negative Urine Urobilinogen Normal Ur Leukocyte Esterase 25 H Urine RBC 0 SEEN Urine WBC 0 SEEN Ur Squamous Epith Cells 0-5 SEEN Urine Bacteria 0 SEEN Urine Mucus 0 SEEN Discharge Plan Triage Chief Complaint: Vag Bleeding ED Provider: Delgado Marie Dx/Rx/DC Orders Clinical Impression: History of post traumatic stress disorder, Vaginal bleeding Instructions: ED Dysfunctional Uterine Bleeding Prescriptions: No Action phentermine 37.5 mg tablet 37.5 mg PO DAILY Patient Comments: TAKE 1 TABLET BY MOUTH ONCE DAILY nitrofurantoin monohyd/m-cryst 100 mg capsule 100 mg PO Q12H Patient Comments: TAKE 1 CAPSULE BY MOUTH 2 TIMES A DAY WITH MEALS FOR 7 DAYS PNV cmb#95-ferrous fumarate-FA [ Multivitamins] 28 mg iron- 800 mcg tablet 1 tab PO DAILY Primary Care Provider: Alfredo Barroso Referrals: Alfredo Barroso MD [Primary Care Provider] - Tahmina Agudelo MD [Med Staff - Active Staff] - As soon as possible Activity Restrictions/Additional Instructions: Plenty of fluids and rest. Your labs were unremarkable. Your blood counts were normal. Urine showed no signs of infection. You are not . [facility] for further gynecology evaluation. Disposition Disposition: Home, Self Care
[2023-07-22 21:15] LABS: Absolute Lymphocyte Count 2.24 X10^3/uL (0.83-4.51); Absolute Neutrophil Count 6.9 X10^3/uL (2.0-7.7); Basophil# 0.04 X10^3/uL; Basophil% 0.4 % (0-1); Eosinophil# 0.03 X10^3/uL; Eosinophils% 0.3 % (0-5); Hematocrit 41.5 % (37-47); Hemoglobin 13.4 g/dL (12.0-15.0); Lymphocyte # 2.24 X10^3/ul (0.83-4.51); Lymphocyte % 22.7 % (19-41); Mean Corp Hgb Conc 32.3 g/dL (32-36); Mean Corpuscular Hgb 28.5 pg (27.0-32.0); Mean Corpuscular Volume 88.3 fL (81-99); Mean Platelet Vol. 8.3 fl (6.2-12.0); Monocyte# 0.63 X10^3/uL; Monocyte% 6.4 % (0-10); NRBC Flagged by Analyzer 0 % (0-5); Neutrophil # 6.87 X10^3/uL (2.7-7.7); Neutrophil % 69.8 % (47-70); Platelet Count 262 K/mm3 (150-450); RBC Distribution Width CV 12.7 % (11.6-14.6); RBC Distribution Width SD 41.3 fl (35.1-43.9); White Blood Count 9.9 K/mm3 (4.4-11.0)
[2023-07-22] MEDS: Ondansetron 4 MG/2 ML Vial IV (21:17)
[2023-07-22] MEDS: 0.9% Normal Saline (1000mL) 1,000 ML 999 ML IV (21:17)
[2023-07-22 21:51] LABS: Internal QC Validated? YES +Cl - CLEAR BKGD; Pregnancy, Serum, hCG Quali. NEGATIVE Negative
[2023-07-22 22:14] LABS: Anion Gap 3 (5-15); BUN 10 mg/dL (7-18); BUN/Creat Ratio 16.4 RATIO (10-20); Calcium,Total 8.7 mg/dL (8.5-10.1); Chloride 107 mmol/L (98-107); Creatinine, Serum 0.61 mg/dL (0.55-1.02); EST Glomerular Filtration Rate 124 mL/min (>60); Est Glom Filt Rate - Afr Amer 151 mL/min (>60); Glucose 79 mg/dL (74-106); Potassium 4.5 mmol/L (3.5-5.1); Sodium Level 138 mmol/L (136-145)
== END 2023-07-22 22:33 | disposition home or self-care (01) ==
PROVIDERS: Emergency Provider Emergency Medicine; PCP Family Medicine; Visit Provider Emergency Medicine
DX: N93.9 Abnormal uterine and vaginal bleeding, unspecified (principal); Z87.891 Personal history of nicotine dependence; R11.0 Nausea; F43.10 Post-traumatic stress disorder, unspecified; R51.9 Headache, unspecified
CPT/HCPCS: 80048; 81001; 84703; 85025; 90471; 96361; 96374; 99283; J7030; J2405

== ENCOUNTER 2023-08-20 19:11 | Emergency (ER) | payer BC, MEDICAID, SELFPAY ==
[2023-08-20 19:13] VITALS: BP 149/86; PULSE 94; RESP 18; TEMP 35.5; O2SAT 100; BMI 39.3
--- NOTE | 2023-08-20 21:35 | ED.VIS.FEGU ---
HPI HPI - Female History of Present Illness Chief Complaint: Female C/O Informant: patient Narrative Narrative: Patient is a 20-year-old female with history of PTSD, endometritis and fourth degree perineal tear after delivery presenting for IUD check. Patient follows with Dr. Botello through [facility]. Today she did her regular IUD check and could not feel the strings. She notes that her IUD was in place when she had a procedure done 3 weeks ago to look for a fistula between her rectum and her vagina. She has had issues with her sphincter tone since her fourth degree tear. This was also done through [facility]. She is unsure her last tetanus was. She know she had 3 negative home test and is not concerned for at the moment. No other complaints or concerns at this time pain dysuria or pelvic pain. PFSH PFSH Medical History ADHD (attention deficit hyperactivity disorder) Anxiety Chronic pain Post traumatic stress disorder (PTSD) SBO (small bowel obstruction) Home Medications phentermine 37.5 mg tablet 37.5 mg PO DAILY 04/30/23 [History Last Taken 05/17/23] nitrofurantoin monohydrate/macrocrystals 100 mg capsule 100 mg PO Q12H 05/18/23 [History Last Taken 05/16/23] vit no.95-ferrous fumarate 28 mg-folic acid 800 mcg tablet ( Multivitamins) 1 tab PO DAILY 05/18/23 [History Last Taken 05/17/23] Allergy/AdvReac Type Severity Reaction Status Date / Time cat dander Allergy Hives Verified 08/20/23 19:12 house dust Allergy Hives Verified 08/20/23 19:12 peanut Allergy Swelling Verified 08/20/23 19:12 cranberry AdvReac Rash Verified 08/20/23 19:12 mold AdvReac Other Verified 07/22/23 19:50 morphine AdvReac Chest Verified 08/20/23 19:12 tightness Family History Aunt Cancer maternal aunt - uterine/cervical ca Surgical History Dehiscence of perineal wound Fourth degree perineal laceration History of gynecologic surgery Social History Smoking Status: Former smoker ROS ROS ED Constitutional Constitutional ED: Denies chills or fever(s) Gastrointestinal Gastrointestinal: Denies abdominal pain, nausea or vomiting Genitourinary Genitourinary ED: Denies dysuria or hematuria Integumentary Denies rash EXAM Physical Exam Const Vital Signs: 08/20/23 19:13 Temperature 96 F L Temperature Source Temporal Pulse Rate 94 Respiratory Rate 18 Blood Pressure 149/86 H Blood Pressure Mean 107 Pulse Ox 100 Oxygen Delivery Method Room Air Positive well nourished and well developed General Appearance ED: well developed and NAD HEENT Reports moist mucous membranes Neck supple Chest Wall inspection of chest normal Resp normal respiratory effort Cardio regular rate and regular rhythm GI normal to inspection, nondistended, normoactive bowel sounds, soft to palpation and non-tender GI Narrative: Healed surgical incisions of the abdomen Neuro oriented x3 Sensorium / Orientation: alert Motor Exam: Negative for general weakness Psych mental status grossly normal Skin no rashes or lesions noted and no wounds MDM MDM MDM Narrative Medical decision making narrative: Patient evaluated for concerns of IUD either falling out or being in appropriate position as she could not find the strings on her IUD check tonight. She had 3 negative test and does not want to be tested for . She has no other symptoms. She denies any pelvic or vaginal pain. Bedside ultrasound performed by myself shows a questionable IUD noted in the uterus however not totally certain. I offered the patient a pelvic exam to see if I could directly visualize the IUD strings and initially she had agreed however when I went in to do it she states that she just heard back from her [facility] and will follow-up in the office tomorrow and they can check it. Patient is offered multiple times for me to check it here but she declines. At this time I do not think patient has a medical emergency and can be discharged home with outpatient gynecology follow-up. Is counseled on safe sex practices until her IUD placement is completely confirmed. She verbalizes agreement understand this. Discharged home in stable condition. Discharge Plan Triage Chief Complaint: Female C/O ED Provider: Mica Mcneil Dx/Rx/DC Orders Clinical Impression: Checking of intrauterine device Instructions: IUD Prescriptions: No Action phentermine 37.5 mg tablet 37.5 mg PO DAILY Patient Comments: TAKE 1 TABLET BY MOUTH ONCE DAILY nitrofurantoin monohyd/m-cryst 100 mg capsule 100 mg PO Q12H Patient Comments: TAKE 1 CAPSULE BY MOUTH 2 TIMES A DAY WITH MEALS FOR 7 DAYS PNV cmb#95-ferrous fumarate-FA [ Multivitamins] 28 mg iron- 800 mcg tablet 1 tab PO DAILY Primary Care Provider: Alfredo Barroso Referrals: Alfredo Barroso MD [Primary Care Provider] - Activity Restrictions/Additional Instructions: Please follow-up with your [facility] as we discussed. Until you can have confirmed placement of your IUD by your [facility] please either practice abstinence or use a secondary control method such as condoms. Disposition Disposition: Home, Self Care Discharge Date/Time: 08/20/23 21:49
== END 2023-08-20 21:49 | disposition home or self-care (01) ==
PROVIDERS: Emergency Provider Emergency Medicine; PCP Family Medicine; Visit Provider Emergency Medicine
DX: Z30.431 Encounter for routine checking of intrauterine contraceptive device (principal); S31.41XA Laceration without foreign body of vagina and vulva, initial encounter; Z87.891 Personal history of nicotine dependence; X58.XXXA Exposure to other specified factors, initial encounter
CPT/HCPCS: 99282

== ENCOUNTER 2023-11-18 17:11 | Emergency (ER) | payer MEDICAID, SELFPAY ==
[2023-11-18 17:11] VITALS: BP 143/99; PULSE 109; RESP 16; TEMP 36.6; O2SAT 98; BMI 39.2
[2023-11-18 17:44] VITALS: BP 123/83; PULSE 100; RESP 16; O2SAT 100
--- NOTE | 2023-11-18 18:44 | CT_ITS ---
STUDY: CT BRAIN WITHOUT CONTRAST REASON FOR EXAM: Female, 28 years old. Pain RADIATION DOSAGE (If Supplied By Facility): CTDIvol = ( 44.99 ) mGy, DLP = ( 745.49 ) mGycm TECHNIQUE: Transaxial CT imaging of the brain was performed without administration of intravenous contrast material. Individualized dose optimization techniques were used for this CT. COMPARISON: No relevant priors. FINDINGS: Normal soft tissue structures. Normal calvarium. Normal size ventricles and extra-axial spaces for the patient''s age. Normal white matter tracts of the cerebral hemispheres. Normal basal ganglia and thalami. Normal brainstem. Normal cerebellum. There is no intracranial hemorrhage. There are no findings of an acute ischemic infarction. Normal visualized paranasal sinuses. CT/Brain/Head without Contrast IMPRESSION: Normal unenhanced CT scan of the brain. Electronically Signed: Nj Bernal MD at 19:20 EST ,
--- NOTE | 2023-11-18 18:44 | EX.ED.DYSGE1 ---
HPI History of Present Illness Chief Complaint: Hypertension Narrative Narrative: 28-year-old female presenting with headache. She states that she has a history of headache but not specifically diagnosed with migraine. She states that she has headaches on the right side usually behind the right eye and she gets sound sensitivity but not light sensitivity. Denies any history of trauma. No fevers or chills. No neck pain or stiffness. Patient states she checked her blood pressure today while her headache was hurting her and it was 8?10 and her blood pressure was 159/106. She states she called her primary care physician's office and they told her to go to the emergency room because her blood pressure was too high. Patient states that other than the headache she does not have any other symptoms she is not nauseous. She has not been vomiting. Denies chest pain, palpitations, shortness of breath. Denies lightheadedness or dizziness. She states she did have an episode where she had a headache for 3 days and she slept through this previously. When she followed up with her PCP she was referred to neurology who told her she does not have migraines but did not do any testing. [facility] Medical History ADHD (attention deficit hyperactivity disorder) Anxiety Chronic pain Post traumatic stress disorder (PTSD) SBO (small bowel obstruction) Home Medications phentermine 37.5 mg tablet 37.5 mg PO DAILY 04/30/23 [History Last Taken 05/17/23] nitrofurantoin monohydrate/macrocrystals 100 mg capsule 100 mg PO Q12H 05/18/23 [History Last Taken 05/16/23] vit no.95-ferrous fumarate 28 mg-folic acid 800 mcg tablet ( Multivitamins) 1 tab PO DAILY 05/18/23 [History Last Taken 05/17/23] Allergy/AdvReac Type Severity Reaction Status Date / Time cat dander Allergy Hives Verified 11/18/23 17:13 house dust Allergy Hives Verified 11/18/23 17:13 peanut Allergy Swelling Verified 11/18/23 17:13 cranberry AdvReac Rash Verified 11/18/23 17:13 mold AdvReac Other Verified 11/18/23 17:13 morphine AdvReac Chest Verified 11/18/23 17:13 tightness Family History Aunt Cancer maternal aunt - uterine/cervical ca Surgical History Dehiscence of perineal wound Fourth degree perineal laceration History of gynecologic surgery Social History Smoking Status: Current every day smoker tobacco type: cigarettes and e-cigarettes ROS ROS ED Constitutional Constitutional ED: Denies chills, fever(s) or sweats Eyes Eyes: Denies blurry vision or change in vision ENT ENT ED: Reports other Details: Sound sensitivity ; Denies ear pain or sore throat Cardiovascular Cardiovascular: Denies chest pain, palpitations or racing heartbeat Respiratory/Chest Respiratory/Chest: Denies cough, dyspnea or sputum Gastrointestinal Gastrointestinal: Denies abdominal pain, constipation, diarrhea, nausea or vomiting Genitourinary Genitourinary ED: Denies dysuria, hematuria or urinary frequency Musculoskeletal Musculoskeletal: Denies arthralgias, myalgias or neck pain Integumentary Denies abscess, Abrasions or rash Neurologic Neurologic: Reports headache(s); Denies paresthesias or weakness Psychiatric Psychiatric: Denies anxiety, depression, suicidal ideation or suicidal thoughts Endocrine Endocrinology: Denies polydipsia or polyuria EXAM Physical Exam Const Vital Signs: 11/18/23 17:11 11/18/23 17:27 11/18/23 17:44 Temperature 97.8 F Temperature Source Temporal Pulse Rate 109 H 100 Respiratory Rate 16 16 Respiratory Effort Normal Respiratory Pattern Normal Blood Pressure 143/99 H 123/83 H Blood Pressure Mean 113 96 Pulse Ox 98 100 Oxygen Delivery Method Room Air Room Air 11/18/23 18:56 Temperature Temperature Source Pulse Rate 75 Respiratory Rate 12 Respiratory Effort Respiratory Pattern Blood Pressure 140/86 H Blood Pressure Mean 104 Pulse Ox 99 Oxygen Delivery Method Room Air Positive well nourished General Appearance ED: NAD; Negative for pallor HEENT Reports moist mucous membranes Eyes PERRL and EOMs intact bilaterally General Eye ED: Negative for pale conjunctiva Neck no lymphadenopathy Chest Wall inspection of chest normal Resp normal respiratory effort Cardio regular rate and regular rhythm GI normal to inspection, nondistended, normoactive bowel sounds Neuro oriented x3 and CN's II-XII intact bilaterally Sensorium / Orientation: alert Psych mental status grossly normal Skin no rashes or lesions noted General Skin Exam: Negative for jaundice or pallor MDM MDM MDM Narrative Medical decision making narrative: Patient presenting with headache. She has had history of headaches that are similar. She is never been formally diagnosed with migraine. Differential includes headache, migraine. Blood pressure is now 123/83 so I do not believe it is an issue. Discussed this at length. We will treated with Reglan, Benadryl, Toradol. CT brain will be obtained as she is never had any imaging done. Will reevaluate the patient. On reevaluation patient CT head was negative. Patient feeling improved with Reglan, Benadryl, Toradol. She feels comfortable going home at this point. She is standing and walk around the room. We will discharge her home and have her follow-up with her PCP Impression: 1. Headache Radiography Diagnostic Testing: Clinical Impression(s) from Imaging Studies Brain CT 11/18/23 18:44 IMPRESSION: Normal unenhanced CT scan of the brain. Electronically Signed: Nj Bernal MD at 19:20 EST , Discharge Plan Triage Chief Complaint: Hypertension ED Provider: Win Velez Dx/Rx/DC Orders Instructions: Self-Care for Headaches Prescriptions: No Action phentermine 37.5 mg tablet 37.5 mg PO DAILY Patient Comments: TAKE 1 TABLET BY MOUTH ONCE DAILY nitrofurantoin monohyd/m-cryst 100 mg capsule 100 mg PO Q12H Patient Comments: TAKE 1 CAPSULE BY MOUTH 2 TIMES A DAY WITH MEALS FOR 7 DAYS PNV cmb#95-ferrous fumarate-FA [ Multivitamins] 28 mg iron- 800 mcg tablet 1 tab PO DAILY Primary Care Provider: Alfredo Barroso Referrals: Alfredo Barroso MD [Primary Care Provider] - Disposition Disposition: Home, Self Care Discharge Date/Time: 11/18/23 20:20
[2023-11-18 18:56] VITALS: BP 140/86; PULSE 75; RESP 12; O2SAT 99
[2023-11-18] MEDS: Metoclopramide 10 MG/2 ML Vial IV (18:57)
[2023-11-18] MEDS: DiphenhydrAMINE 50 MG/ML Syringe 25 MG IV (18:57)
[2023-11-18] MEDS: 0.9% Normal Saline (1000mL) 1,000 ML 999 ML IV (18:57)
[2023-11-18] MEDS: Ketorolac 15 MG/ML Vial IV (18:57)
== END 2023-11-18 20:20 | disposition home or self-care (01) ==
PROVIDERS: Emergency Provider Student in an Organized Health Care Education/Training Program; PCP Family Medicine; Visit Provider Student in an Organized Health Care Education/Training Program
DX: R51.9 Headache, unspecified (principal); I10 Essential (primary) hypertension; F17.210 Nicotine dependence, cigarettes, uncomplicated; F90.9 Attention-deficit hyperactivity disorder, unspecified type; F17.290 Nicotine dependence, other tobacco product, uncomplicated
CPT/HCPCS: 70450; 96361; 96374; 96375; 99283; J7030; A4216

== ENCOUNTER 2023-11-24 11:02 | Emergency (ER) | payer MEDICAID, SELFPAY ==
[2023-11-24 11:03] VITALS: BP 118/74; PULSE 80; RESP 16; TEMP 36.2; O2SAT 100; BMI 37.8
[2023-11-24 11:25] LABS: Mucous, Urine 0 SEEN /hpf (<or=2+)
[2023-11-24 11:28] LABS: Color, Urine Yellow (Yellow); Glucose, Dipstick Normal (Normal); Ketone-Dipstick Negative (Negative); Leukocyte Esterase-Dipstick 500 /ul (Negative); Nitrite-Dipstick Positive (Negative); Occult Blood-Urine 150 /ul (Negative); Protein-Dipstick 30 mg/dl (Negative); Specific Gravity, Urine 1.015 (1.002-1.030); Urine Bilirubin Dipstick Negative (Negative); Urine Clarity Cloudy (Clear); Urine Urobilinogen Normal (Normal); Urine pH 6.5 (5.0 - 8.0)
[2023-11-24 11:51] LABS: Bacteria 2+ /hpf (None Seen); Red Blood Cells-Urine 5-10 SEEN /hpf (0-5); Squamous Epithelial Cells - UA 0-5 SEEN /hpf (5-10); White Blood Cells >100 SEEN /hpf (0-5)
--- NOTE | 2023-11-24 12:06 | CT_ITS ---
STUDY: CT ABDOMEN AND PELVIS WITH CONTRAST REASON FOR EXAM: Female, 28 years old. RLQ pain. Pain following urination. RADIATION DOSAGE (If Supplied By Facility): CTDIvol = ( 17.93 ) mGy, DLP = ( 1058.51 ) mGycm TECHNIQUE: Transaxial images were obtained from the dome of the diaphragm to the symphysis pubis without oral contrast. IV 100mL Isovue-300 was administered. Sagittal and coronal images were reconstructed. Individualized dose optimization techniques were used for this CT. COMPARISON: Comparison is made with prior study dated May 18, 2023. FINDINGS: The visualized lung bases are unremarkable. The visualized portions of the heart are within normal limits. Stable 1.8 cm benign-appearing hemangioma in the left lobe of the liver. There are surgical clips in the gallbladder fossa consistent with a prior cholecystectomy. Normal spleen. Normal pancreas. Normal bilateral adrenal glands. Normal right kidney. Normal left kidney. Normal visualized stomach. Stable appearance of a surgical anastomosis in the distal jejunum in the right lower quadrant. There are scattered colonic diverticula consistent with diverticulosis. The appendix is visualized and appears normal. Normal abdominal aorta. Normal inferior vena cava. Normal retroperitoneum. Normal urinary bladder. Prominent endometrium. The IUD is not seen at this time. Normal abdominal wall. Normal osseous structures. CT/Abdomen/Pelvis W IV Cont ONLY IMPRESSION: Stable 1.8 cm hemangioma in the left lobe liver. Status post cholecystectomy. No acute abnormality is seen. Electronically Signed: Yaya Soto MD at 14:21 EST ,
--- NOTE | 2023-11-24 12:07 | ED.VIS.GI ---
HPI HPI - GI History of Present Illness Chief Complaint: Abd Pain Narrative Narrative: 28-year-old female past medical history of previous ileostomy with reversal, partial colectomy secondary to C. difficile, cholecystectomy presents with right lower quadrant abdominal pain and dysuria that she has had for the last 3 days. She states that her symptoms began a few days ago. She is having pain at the end of urination where she gets sharp stabbing pain mainly in the right side of her abdomen. She thought maybe she had a UTI or kidney stone which she has had in the past. She states she went to urgent care yesterday evening, and had tenderness in the right lower quadrant and was told to come to the emergency department but she elected not to come. She has had continued pain with urinating/after urination, and right lower quadrant abdominal pain. She denies other symptoms. No exacerbating or alleviating factors. Last menstrual period recently finished and started 5 days ago. PFSH PFSH Medical History ADHD (attention deficit hyperactivity disorder) Anxiety Chronic pain Post traumatic stress disorder (PTSD) SBO (small bowel obstruction) Home Medications phentermine 37.5 mg tablet 37.5 mg PO DAILY 04/30/23 [History Last Taken 05/17/23] nitrofurantoin monohydrate/macrocrystals 100 mg capsule 100 mg PO Q12H 05/18/23 [History Last Taken 05/16/23] vit no.95-ferrous fumarate 28 mg-folic acid 800 mcg tablet ( Multivitamins) 1 tab PO DAILY 05/18/23 [History Last Taken 05/17/23] nitrofurantoin macrocrystal 100 mg capsule 100 mg PO BID 7 days #14 caps 11/24/23 [Rx Last Taken Unknown] Allergy/AdvReac Type Severity Reaction Status Date / Time cat dander Allergy Hives Verified 11/24/23 11:03 house dust Allergy Hives Verified 11/24/23 11:03 peanut Allergy Swelling Verified 11/24/23 11:03 cranberry AdvReac Rash Verified 11/24/23 11:03 mold AdvReac Other Verified 11/24/23 11:03 morphine AdvReac Chest Verified 11/24/23 11:03 tightness Family History Aunt Cancer maternal aunt - uterine/cervical ca Surgical History Dehiscence of perineal wound Fourth degree perineal laceration History of gynecologic surgery Social History Smoking Status: Current every day smoker tobacco type: cigarettes and e-cigarettes ROS ROS ED ROS Narrative Constitutional: No fever, no chills. HEENT: No sore throat. No neck pain. No loss of vision. No rhinorrhea. Cardiovascular: No chest pain. No palpitations. No pedal edema. Respiratory: No cough, no shortness of breath. Abdominal: Positive right lower quadrant abdominal pain. No nausea. No vomiting. Genitourinary: Positive dysuria. No hematuria. Musculoskeletal: No myalgias. No arthralgias. Neurologic: No headaches. No dizziness. No lightheadedness. Skin: No rash. No change in color. Psychiatric: No depression. No anxiety. EXAM Physical Exam Narrative Exam Narrative: Afebrile. Vital signs noted. HEENT: Normocephalic. Atraumatic. PERRL, EOMI. Neck soft and supple. No point tenderness or step off. Cardiovascular: Regular rate and rhythm. No murmurs, rubs, or gallops appreciated. Respiratory: No tachypnea. Lungs clear to auscultation bilaterally. Gastrointestinal: Abdomen soft, mild tenderness in right lower quadrant with normoactive bowel sounds. No rebound or guarding. Well-healed surgical scars on abdomen. Neurological: Awake. Alert. Nonfocal, nonlateralizing. Skin: No rash. Normal color. No pallor. Musculoskeletal: No pedal edema. Full range of motion extremities. Const Vital Signs: 11/24/23 11:03 Temperature 97.2 F L Temperature Source Temporal Pulse Rate 80 Respiratory Rate 16 Blood Pressure 118/74 Blood Pressure Mean 88 Pulse Ox 100 Oxygen Delivery Method Room Air MDM MDM MDM Narrative Medical decision making narrative: In the differential diagnosis is ureterolithiasis versus appendicitis versus bowel obstruction versus nonspecific abdominal pain versus pyelonephritis. RN ordered UA does show positive nitrates in the urine with 5-10 RBCs and greater than 100 WBCs. Her urine will be sent for culture and I will treat her with antibiotics, but given her right lower quadrant abdominal pain I do feel CT imaging is warranted. I will obtain a CBC and a BMP as well as a serum test prior to imaging. I reviewed her laboratory work and she has a normal white count of 6.4, hemoglobin normal at 13.7, hematocrit 41.9, platelet count normal at 277. BMP shows normal sodium of 140 with potassium normal at 4.5, chloride slightly elevated at 109 which I think is nonspecific, glucose appropriately elevated at 88 with a normal anion gap of 5. BUN is low at 6 with creatinine 0.73 and normal. Serum is negative. Urinalysis was obtained and reviewed which is consistent with UTI with positive nitrites, and greater than 100 WBCs. This was sent for culture. She does have 5-[address] of the abdomen pelvis was reviewed/radiology report reviewed and there is no evidence of an acute appendicitis or bowel obstruction. At this point in time, I discussed antibiotics with her. She is hesitant to receive Bactrim because of her history of C. difficile, and she states that she usually receives strong antibiotic that she only has to take for few days. While she was told that any antibiotic can cause C. difficile, she is more comfortable with receiving her first dose of Macrobid here in the emergency department and prescription written for the next week. I feel she can be discharged safely home with follow-up to her primary care provider. Return instructions to the emergency department were reviewed. Disposition is discharged home in stable condition. History & Record Review Discussion w/independent historian: Patient Additional record(s) reviewed:: Prior ED visit and Prior labs Lab Data Attestation: I reviewed the patient's lab results. Labs: Laboratory Results - last 24 hr 11/24/23 11/24/23 11:20 12:40 WBC 6.4 RBC 4.67 Hgb 13.7 Hct 41.9 MCV 89.7 MCH 29.3 MCHC 32.7 RDW Std Deviation 43.0 RDW Coeff of Wiliam 13.2 Plt Count 277 MPV 8.1 Immature Gran % (Auto) 0.300 Neut % (Auto) 66.3 Lymph % (Auto) 27.4 Rabun % (Auto) 5.2 Eos % (Auto) 0.5 Baso % (Auto) 0.3 Absolute Neuts (auto) 4.2 Absolute Lymphs (auto) 1.74 Nucleated RBC % 0 Sodium 140 Potassium 4.5 Chloride 109 H Carbon Dioxide 26.0 Anion Gap 5 BUN 6 L Creatinine 0.73 Estim Creat Clear Calc 122.47 Est GFR (MDRD) Af Amer 122 Est GFR (MDRD) Non-Af 101 BUN/Creatinine Ratio 8.3 L Glucose 88 Calcium 9.3 Serum , Qual NEGATIVE Urine Color Yellow Urine Clarity Cloudy Urine pH 6.5 Ur Specific [place] 1.015 Urine Protein 30 H Urine Glucose (UA) Normal Urine Ketones Negative Urine Occult Blood 150 H Urine Nitrite Positive H Urine Bilirubin Negative Urine Urobilinogen Normal Ur Leukocyte Esterase 500 H Urine RBC 5-10 SEEN Urine WBC >100 SEEN Ur Squamous Epith Cells 0-5 SEEN Urine Bacteria 2+ Urine Mucus 0 SEEN Radiography Diagnostic Testing: Clinical Impression(s) from Imaging Studies Abdomen/Pelvis CT 11/24/23 12:06 IMPRESSION: Stable 1.8 cm hemangioma in the left lobe liver. Status post cholecystectomy. No acute abnormality is seen. Electronically Signed: Yaya Soto MD at 14:21 EST , Discharge Plan Triage Chief Complaint: Abd Pain ED Provider: Tanner Ryan Dx/Rx/DC Orders Clinical Impression: Abdominal pain, RLQ, UTI (urinary tract infection) Instructions: ED Abdominal Pain Unkn Cause Fem, ED Cystitis Female Adult Prescriptions: New nitrofurantoin macrocrystal 100 mg capsule 100 mg PO BID 7 Days Qty: 14 0RF Rx Instructions: must administer with a meal/food No Action phentermine 37.5 mg tablet 37.5 mg PO DAILY Patient Comments: TAKE 1 TABLET BY MOUTH ONCE DAILY nitrofurantoin monohyd/m-cryst 100 mg capsule 100 mg PO Q12H Patient Comments: TAKE 1 CAPSULE BY MOUTH 2 TIMES A DAY WITH MEALS FOR 7 DAYS PNV cmb#95-ferrous fumarate-FA [ Multivitamins] 28 mg iron- 800 mcg tablet 1 tab PO DAILY Primary Care Provider: Alfredo Barroso Referrals: Alfredo Barroso MD [Primary Care Provider] - 3-5 Days if not improving Activity Restrictions/Additional Instructions: Antibiotics as directed. Return with fever, new or worsening symptoms. Disposition Disposition: Home, Self Care
[2023-11-24] MEDS: 0.9% Normal Saline (1000mL) 1,000 ML 1000 ML IV (12:53)
[2023-11-24 12:57] LABS: Absolute Lymphocyte Count 1.74 X10^3/uL (0.83-4.51); Absolute Neutrophil Count 4.2 X10^3/uL (2.0-7.7); Basophil# 0.02 X10^3/uL; Basophil% 0.3 % (0-1); Eosinophil# 0.03 X10^3/uL; Eosinophils% 0.5 % (0-5); Hematocrit 41.9 % (37-47); Hemoglobin 13.7 g/dL (12.0-15.0); Lymphocyte # 1.74 X10^3/ul (0.83-4.51); Lymphocyte % 27.4 % (19-41); Mean Corp Hgb Conc 32.7 g/dL (32-36); Mean Corpuscular Hgb 29.3 pg (27.0-32.0); Mean Corpuscular Volume 89.7 fL (81-99); Mean Platelet Vol. 8.1 fl (6.2-12.0); Monocyte# 0.33 X10^3/uL; Monocyte% 5.2 % (0-10); NRBC Flagged by Analyzer 0 % (0-5); Neutrophil # 4.21 X10^3/uL (2.7-7.7); Neutrophil % 66.3 % (47-70); Platelet Count 277 K/mm3 (150-450); RBC Distribution Width CV 13.2 % (11.6-14.6); Red Blood Count 4.67 M/mm3 (4.2-5.4); White Blood Count 6.4 K/mm3 (4.4-11.0)
[2023-11-24 13:03] VITALS: RESP 18
[2023-11-24 13:14] LABS: Anion Gap 5 (5-15); BUN 6 mg/dL (7-18); BUN/Creat Ratio 8.3 RATIO (10-20); Calcium,Total 9.3 mg/dL (8.5-10.1); Chloride 109 mmol/L (98-107); Creatinine, Serum 0.73 mg/dL (0.55-1.02); EST Glomerular Filtration Rate 101 mL/min (>60); Est Glom Filt Rate - Afr Amer 122 mL/min (>60); Estimated Creatinine Clearance 122.47 ml/min; Glucose 88 mg/dL (74-106); Potassium 4.5 mmol/L (3.5-5.1); Sodium Level 140 mmol/L (136-145)
[2023-11-24 13:18] LABS: Internal QC Validated? YES +Cl - CLEAR BKGD; Pregnancy, Serum, hCG Quali. NEGATIVE Negative
[2023-11-24] MEDS: Nitrofurantoin Macrocrystals 100 MG Capsule PO (14:41)
[2023-11-24 14:45] VITALS: BP 118/74; PULSE 80; RESP 18; TEMP 36.2; O2SAT 100
== END 2023-11-24 14:47 | disposition home or self-care (01) ==
PROVIDERS: Emergency Provider Emergency Medicine; PCP Family Medicine; Visit Provider Emergency Medicine
DX: N39.0 Urinary tract infection, site not specified (principal); F17.210 Nicotine dependence, cigarettes, uncomplicated; R10.31 Right lower quadrant pain; Z90.49 Acquired absence of other specified parts of digestive tract
CPT/HCPCS: 74177; 80048; 81001; 84703; 85025; 87086; 87088; 87186; 96360; 99283; J7030; Q9967; A4216

== ENCOUNTER 2024-03-04 19:57 | Emergency (ER) | payer MEDICAID, SELFPAY ==
[2024-03-04 19:57] VITALS: BP 138/98; PULSE 102; RESP 20; TEMP 36.1; O2SAT 100; BMI 38.9
--- NOTE | 2024-03-04 20:28 | EDS_ITS ---
HPI <ERICA Bashir - Last Filed: 03/04/24 21:07> History of Present Illness Chief Complaint: Dental Narrative Narrative: Patient is a 28-year-old female with history of taking medication for weight loss who presents to the emergency department with worsening pain to the left upper molar. Patient states that she does see a dentist, she was told she has an infection via an x-ray at the dentist. She is on amoxicillin, patient states that the pain is getting more severe. She has been taking ibuprofen 800s with no relief. She is also tried other [id number] medications. Patient states that the pain is getting worse and she is here for evaluation. She is scheduled to have the tooth removed on Thursday of next week. PFSH <ERICA Bashir - Last Filed: 03/04/24 21:07> PFSH Medical History ADHD (attention deficit hyperactivity disorder) Anxiety Chronic pain Post traumatic stress disorder (PTSD) SBO (small bowel obstruction) Home Medications ?Medication ?Instructions ?Recorded ?Last Taken ?Type phentermine 37.5 mg tablet 37.5 mg PO DAILY 04/30/23 05/17/23 History hydrocodone-acetaminophen 5-325mg 1 tab PO Q6H PRN PRN Pain 3 days 03/04/24 Unknown Rx 5mg-325mg #6 TABLETS Allergy/AdvReac Type Severity Reaction Status Date / Time cat dander Allergy Hives Verified 03/04/24 19:59 house dust Allergy Hives Verified 03/04/24 19:59 peanut Allergy Swelling Verified 03/04/24 19:59 cranberry AdvReac Rash Verified 03/04/24 19:59 mold AdvReac Other Verified 03/04/24 19:59 morphine AdvReac Chest Verified 03/04/24 19:59 tightness Family History Aunt Cancer maternal aunt - uterine/cervical ca Surgical History Dehiscence of perineal wound Fourth degree perineal laceration History of gynecologic surgery Social History Smoking Status: Current every day smoker tobacco type: cigarettes and e- cigarettes ROS <ERICA Bashir - Last Filed: 03/04/24 21:07> ROS ED ROS Narrative Constitutional: Negative for fever, chills, weight loss, weakness Eyes: Negative for vision loss, vision change, double vision ENT: Negative for any sore throat, ear pain, congestion. Positive for left upper jaw pain Cardiovascular: Negative for any chest pain, tightness, palpitations Respiratory: Negative for any cough, sputum production, hemoptysis, dyspnea, dyspnea on exertion, orthopnea Gastrointestinal: Negative for any abdominal pain, nausea, vomiting, diarrhea, constipation, blood in stool, blood in vomit : Negative for any urinary frequency, dysuria, retention, blood in urine Muscle skeletal: Negative for any neck pain, back pain Neurological: Negative for any headache, syncope, dizziness Skin: Negative for any rashes, itching, abrasions, lacerations Psychiatric: Negative for any depression, anxiety, stress, suicidal ideation, h omicidal ideation Hematologic: Negative for any excessive bruising, easy bleeding EXAM <ERICA Bashir - Last Filed: 03/04/24 21:07> Physical Exam Narrative Exam Narrative: Vital signs reviewed. HEET: Head normocephalic atraumatic, TMs clear bilaterally. Posterior pharynx is clear, moist mucous membranes. Nares clear bilaterally. Patient has pain to the left upper molar, there is no evidence of any fracture, no evidence of any drainable abscess. No evidence of deep tissue infection. Negative for any trismus. Neck: Supple with no lymphadenopathy or tenderness. No signs of meningismus. Cardiac: Regular rate and rhythm no murmurs gallops or rubs, equal peripheral pulses bilaterally. Respiratory: Lungs clear to auscultation bilaterally. No chest tenderness. Abdomen: Soft, nontender, nondistended. No abdominal bruit or pulsatile masses. No hepatosplenomegaly Extremities: No peripheral edema, no signs of gross trauma or deformity. Active full range of motion of all extremities. Neuro: Cranial nerves II through XII intact, no focal neurological deficits. Skin: Clean dry and intact with no rash, purpura, petechiae, vesicles or pustules. Backs/flank: No CVA tenderness, no midline spinal tenderness, no deformity. Psych: Normal mood and affect. No SI, HI or acute psychosis. Const Vital Signs: 03/04/24 19:57 Temperature 96.9 F L Temperature Source Temporal Pulse Rate 102 H Respiratory Rate 20 H Blood Pressure 138/98 H Blood Pressure Mean 111 Pulse Ox 100 Oxygen Delivery Method Room Air <Dr. Jayro Brooks DO - Last Filed: 03/05/24 00:57> Physical Exam Const Vital Signs: 03/04/24 19:57 Temperature 96.9 F L Temperature Source Temporal Pulse Rate 102 H Respiratory Rate 20 H Blood Pressure 138/98 H Blood Pressure Mean 111 Pulse Ox 100 Oxygen Delivery Method Room Air [facility] <ERICA Bashir - Last Filed: 03/04/24 21:07> [facility] Treatment and Re-Evaluation :: Differential diagnosis includes however is not limited to: Dental caries, dental abscess, fractured tooth, Patient appears to be in no obvious distress, patient's vital signs are stable. Patient is nontoxic, presenting to the [facility] part with complaints of pain to the left upper molar. Patient is currently on amoxicillin, states she is here for pain control. Patient at this time will be given a short course of [place], 6 tablets. Patient to continue taking the amoxicillin. She will follow-up closely with her dentist. She instructed return for any worsening symptoms. Patient is agreeable with the plan, stable for discharge. <Dr. Jayro Brooks, - Last Filed: 03/05/24 00:57> [facility] Narrative Medical decision making narrative: I have personally performed a face to face assessment of the patient and have reviewed the BRYAN Note. I performed a substantive portion of the visit including all aspects of the following. My castro findings include: History: Patient presents with dental pain that has been getting worse over the past 9 days. Patient describes the pain as throbbing. Patient states it has been constant. Patient states it is mainly over the left upper and lower molar areas. Patient admits to some facial and jaw swelling. Patient also admits to some cold sensitivity. Patient denies any fevers or chills. Patient states she has been using topical anesthetics with some relief. Patient states that this has caused some small ulcerations in her buccal mucosa. Exam: Vital signs are stable. Patient is afebrile. Patient is in no acute distress. There are dental caries noted over the left upper and lower molars. There is some mild gingival edema. There are very superficial mucosal ulcerations on the buccal mucosa in the left posterior cheek area. There is no discharge or drainage noted. Oropharynx is clear. Airway is patent. Neck is supple. Trachea is midline. There is no sublingual edema. There is no evid ence of Austin's angina. Medical Decision Making: Patient was advised that this is most likely infected dental caries. Patient is currently on antibiotic for this. Patient was given a prescription for a short course of [place]. Patient was instructed to follow-up with her dentist in 3 to 5 days. Patient was instructed to return if worse in any way. Patient understood and was agreeable with the plan. All questions were answered. Discharge Plan Triage Chief Complaint: Dental ED Midlevel Provider: Wally Galdamez ED Provider: Jayro Brooks Dx/Rx/DC Orders Clinical Impression: Dental caries Instructions: ED Dental Cavity Prescriptions: New hydrocodone-acetaminophen 5-325 mg tablet 1 tab PO Q6H PRN PRN (Reason: Pain) 3 Days Qty: 6 0RF No Action phentermine 37.5 mg tablet 37.5 mg PO DAILY Patient Comments: TAKE 1 TABLET BY MOUTH ONCE DAILY Primary Care Provider: Alfredo Barroso Referrals: Alfredo Barroso MD [Primary Care Provider] - Print Language: Hebrew Disposition Disposition: Home, Self Care Discharge Date/Time: 03/04/24 21:49
[2024-03-04 21:48] VITALS: BP 115/66; PULSE 62; RESP 12; TEMP 36.6; O2SAT 97
== END 2024-03-04 21:49 | disposition home or self-care (01) ==
PROVIDERS: Emergency Provider Emergency Medicine; PCP Family Medicine; Visit Provider Emergency Medicine
DX: K02.9 Dental caries, unspecified (principal); F17.210 Nicotine dependence, cigarettes, uncomplicated; F17.290 Nicotine dependence, other tobacco product, uncomplicated
CPT/HCPCS: 99282

== ENCOUNTER 2024-10-12 08:53 | Emergency (ER) | payer MEDICAID, SELFPAY ==
[2024-10-12 08:54] VITALS: BP 123/70; PULSE 84; RESP 18; TEMP 37.1; O2SAT 98; BMI 41.2
--- NOTE | 2024-10-12 09:04 | ED.VIS.DENTA ---
HPI History of Present Illness Chief Complaint: Dental Informant: patient Onset/Context/Timing Onset: Days (5) Context: Gradual Onset Timing: Continuous Quality: Throbbing Location: Left upper molars Worsened by: Nothing Relieved by: - (Nothing) Associated Symptoms Assocated Symptom - Dental: jaw swelling, face swelling and hot sensitivity; Negative for fever or cold sensitivity Narrative Narrative: Patient presents with dental pain that has been getting worse over the last 5 days. Patient states it is gradually getting worse. Patient states she went to urgent care yesterday was given a prescription for amoxicillin. Patient states that her pain is still present today and she was not sure if she needed a stronger antibiotic. Patient describes her pain as throbbing. Patient states it is over the left upper molar area. Patient states nothing makes it better nothing makes it worse. Patient states she feels like there is some swelling to her left cheek and into her jaw. Patient admits to hot sensitivity but denies any cold sensitivity. Patient states she is 15 weeks and is concerned that the infection is affecting the fetus. [facility] Medical History Hypotension Dizziness Vitamin D deficiency PCOS (polycystic ovarian syndrome) Obesity GERD (gastroesophageal reflux disease) Hx of deep venous thrombosis History of post traumatic stress disorder SBO (small bowel obstruction) Endometritis Chronic pain Post traumatic stress disorder (PTSD) ADHD (attention deficit hyperactivity disorder) Anxiety Home Medications ?Medication ?Instructions ?Recorded ?Last Taken ?Type aspirin 81 mg tablet,delayed 81 mg PO QDAY 09/28/24 Unknown History release vitamin no.102-iron 90 1 cap PO QDAY 09/28/24 Unknown History mg-folate 1 mg-dha 200 mg capsule Allergy/AdvReac Type Severity Reaction Status Date / Time cat dander Allergy Hives Verified 10/12/24 08:54 house dust Allergy Hives Verified 10/12/24 08:54 peanut Allergy Swelling Verified 10/12/24 08:54 cranberry AdvReac Rash Verified 10/12/24 08:54 mold AdvReac Other Verified 10/12/24 08:54 morphine AdvReac Chest Verified 10/12/24 08:54 tightness Family History Aunt Cancer maternal aunt - uterine/cervical ca Mother Heart disease Father Diabetes Hypertension Grandmother Kidney disease CVA (cerebral vascular accident) Myocardial infarction CAD (coronary artery disease) Diabetes Hypertension Surgical History Hx laparoscopic cholecystectomy Dehiscence of perineal wound Fourth degree perineal laceration History of gynecologic surgery Social History Smoking Status: Current every day smoker tobacco type: cigarettes and e-cigarettes alcohol intake: current alcohol intake frequency: a few times a week Alcohol type: beer substance use type: does not use ROS ROS ED Constitutional Constitutional ED: Reports chills and subjective; Denies fever(s) Eyes Eyes: Denies blurry vision or change in vision ENT ENT ED: Denies rhinorrhea or sore throat Cardiovascular Cardiovascular: Denies chest pain or palpitations Respiratory/Chest Respiratory/Chest: Denies cough or dyspnea Gastrointestinal Gastrointestinal: Denies nausea or vomiting Genitourinary Genitourinary ED: Denies dysuria or hematuria Musculoskeletal Musculoskeletal: Reports neck pain; Denies back pain Integumentary Denies abscess or rash Neurologic Neurologic: Denies headache(s) or weakness Allergic/Immunologic Allergic/Immunologic ED: Denies mouth swelling or urticaria EXAM Physical Exam Const Vital Signs: 10/12/24 08:54 Temperature 98.7 F Temperature Source Oral Pulse Rate 84 Respiratory Rate 18 Blood Pressure 123/70 H Blood Pressure Mean 87 Pulse Ox 98 Oxygen Delivery Method Room Air Positive well nourished and well developed General Appearance ED: well developed and NAD HEENT HEENT Narrative: Oral mucosa is pink and moist. Oropharynx is clear. Airway is patent. There was some gingival edema over the left upper molars. There are dental caries noted over these teeth. There is no discharge or drainage. There is no fluctuance. There is no sublingual edema. There is no evidence of Austin's angina. Mouth ED: Yes oral and palatal mucosa normal Mouth: oral and palatal mucosa normal Teeth and Gingiva: caries and gingiva abnormal Positive for gingival edema Throat: posterior oropharynx normal Neck supple and no JVD General: normal visual inspection; Negative for anterior neck swelling, tenderness or submandibular swelling Neuro oriented x3, CN's II-XII intact bilaterally, moves all extremities, no focal motor deficits and no sensory deficits noted Sensorium / Orientation: alert Motor Exam: strength 5/5 throughout Psych mental status grossly normal MDM MDM MDM Narrative Medical decision making narrative: Patient was advised that these are infected dental caries. Patient was advised that it would take more than 24 hours of antibiotics to help with her pain and swelling. Patient was instructed to continue her amoxicillin as prescribed. Patient was instructed take Tylenol as needed for pain. Patient was instructed to follow-up with her dentist as scheduled. Patient was instructed to return if worse in any way. Patient understood and was agreeable with plan. All questions were answered. Discharge Plan Triage Chief Complaint: Dental ED Provider: Jayro Brooks Dx/Rx/DC Orders Clinical Impression: Infected dental caries, Instructions: ED Dental Pain, ED Dental Cavity Prescriptions: No Action aspirin 81 mg tablet,delayed release (DR/EC) 81 mg PO QDAY PNV [id number] 90 mg iron- 1 mg-200 mg capsule 1 cap PO QDAY Primary Care Provider: Alfredo Barroso Referrals: Alfredo Barroso MD [Primary Care Provider] - Activity Restrictions/Additional Instructions: Continue the amoxicillin as prescribed until gone. You may take Tylenol as needed for pain. This is the safest medication in . Follow-up with your dentist as scheduled. Print Language: Moldovan Disposition Disposition: Home, Self Care
== END 2024-10-12 09:24 | disposition home or self-care (01) ==
LOC: ED 09:15
PROVIDERS: Emergency Provider Emergency Medicine; PCP Family Medicine; Visit Provider Emergency Medicine
DX: O99.619 Diseases of the digestive system complicating pregnancy, unspecified trimester (principal); K02.9 Dental caries, unspecified; K21.9 Gastro-esophageal reflux disease without esophagitis; F17.210 Nicotine dependence, cigarettes, uncomplicated; F17.290 Nicotine dependence, other tobacco product, uncomplicated; O99.330 Smoking (tobacco) complicating pregnancy, unspecified trimester; Z3A.00 Weeks of gestation of pregnancy not specified
CPT/HCPCS: 99282

== ENCOUNTER 2024-10-25 21:06 | Emergency (ER) | payer MEDICAID, SELFPAY ==
[2024-10-25 21:07] VITALS: BP 137/82; PULSE 89; RESP 18; TEMP 36.6; O2SAT 99; BMI 44.1
--- NOTE | 2024-10-25 21:34 | ED.RN ---
Charge nurse in [place] called pt's OB who states pt does not need evaluated in [place] at this time. They do recommend ED obtain heart tones and to call pt's OB for any further concerns.
--- NOTE | 2024-10-25 23:13 | EDS_ITS ---
HPI History of Present Illness Chief Complaint: Fall Informant: patient Narrative Narrative: Patient is a 29-year-old female who is a approximately 18 weeks . She states around 930 this evening she was walking down the steps and she slipped and fell. She states she landed on her back/buttocks. She denies striking her head any loss of consciousness history of bleeding disorder or blood thinner use. She states she was able to get back up and ambulate following the fall. She states there is been no vaginal bleeding or discharge. She states that her first was complicated and following delivery had to have a ostomy secondary to SBO. She states since the fall she is concerned there may have been injury to the baby and therefore comes in for evaluation [facility] Medical History Hypotension Dizziness Vitamin D deficiency PCOS (polycystic ovarian syndrome) Obesity GERD (gastroesophageal reflux disease) Hx of deep venous thrombosis History of post traumatic stress disorder SBO (small bowel obstruction) Endometritis Chronic pain Post traumatic stress disorder (PTSD) ADHD (attention deficit hyperactivity disorder) Anxiety Home Medications ?Medication ?Instructions ?Recorded ?Last Taken ?Type aspirin 81 mg tablet,delayed 81 mg PO QDAY 09/28/24 Unknown History release vitamin no.102-iron 90 1 cap PO QDAY 09/28/24 Unknown History mg-folate 1 mg-dha 200 mg capsule Allergy/AdvReac Type Severity Reaction Status Date / Time cat dander Allergy Hives Verified 10/25/24 21:11 house dust Allergy Hives Verified 10/25/24 21:11 peanut Allergy Swelling Verified 10/25/24 21:11 cranberry AdvReac Rash Verified 10/25/24 21:11 mold AdvReac Other Verified 10/25/24 21:11 morphine AdvReac Chest Verified 10/25/24 21:11 tightness Family History Aunt Cancer maternal aunt - uterine/cervical ca Mother Heart disease Father Diabetes Hypertension Grandmother Kidney disease CVA (cerebral vascular accident) Myocardial infarction CAD (coronary artery disease) Diabetes Hypertension Surgical History Hx laparoscopic cholecystectomy Dehiscence of perineal wound Fourth degree perineal laceration History of gynecologic surgery Social History Smoking Status: Current every day smoker tobacco type: cigarettes and e- cigarettes alcohol intake: current alcohol intake frequency: a few times a week Alcohol type: beer substance use type: does not use ROS ROS ED Constitutional Constitutional ED: Denies chills or fever(s) Eyes Eyes: Denies blurry vision or change in vision ENT ENT ED: Denies sore throat Cardiovascular Cardiovascular: Reports other Details: Negative syncope ; Denies chest pain Respiratory/Chest Respiratory/Chest: Denies cough or dyspnea Gastrointestinal Gastrointestinal: Denies abdominal pain, diarrhea, nausea or vomiting Genitourinary Genitourinary ED: Reports other Details: Negative vaginal bleeding or discharge ; Denies dysuria, hematuria or urinary frequency Musculoskeletal Musculoskeletal: Reports back pain Integumentary Reports Abrasions Neurologic Neurologic: Denies headache(s), paresthesias or weakness Hematologic/Lymphatic Hematologic/Lymphatic: Denies easy bleeding or easy bruising EXAM Physical Exam Const Vital Signs: 10/25/24 21:07 10/25/24 21:51 Temperature 97.8 F Temperature Source Oral Pulse Rate 89 Respiratory Rate 18 Respiratory Effort Normal Non-Labored Respiratory Depth Normal Respiratory Pattern Normal Blood Pressure 137/82 H Blood Pressure Mean 100 Pulse Ox 99 Oxygen Delivery Method Room Air Room Air Positive well nourished and well developed General Appearance ED: well developed; Negative for pallor HEENT HEENT Narrative: Normocephalic atraumatic Eyes PERRL and EOMs intact bilaterally Neck supple Neck Narrative: No bony deformity or step-off of the cervical spine no midline tenderness to palpation Resp normal respiratory effort and clear to auscultation bilaterally Cardio regular rate and regular rhythm GI non-tender and non-distended GI Narrative: Abdomen is soft nontender and nondistended with normal active bowel sounds. Fundus is consistent with reported gestational age. Auscultation: normoactive bowel sounds Palpation: soft Back/Spine Back/Spine Narrative: No bony deformity or step-off of the thoracic or lumbar spine but there is midline pain with palpation over top the lower thoracic upper lumbar region Extremity Extremity Narrative: Pelvis is stable there is no shortening or external rotation of either lower extremity There is pain with palpation over top the midportion of the left gluteal muscle consistent with fall. There is also superficial abrasion to the distal third aspect of the left forearm without obvious bony deformity or joint effusion Compartments are soft and compressible going against compartment syndrome Neuro oriented x3, CN's II-XII intact bilaterally and no sensory deficits noted Sensorium / Orientation: alert Motor Exam: strength 5/5 throughout Psych mental status grossly normal Skin no rashes or lesions noted General Skin Exam: Negative for jaundice or pallor MDM MDM MDM Narrative Medical decision making narrative: Patient reported a mechanical fall and therefore there is no need for cardiac or syncope workup. She did not strike her head and therefore my concern for a traumatic subarachnoid or subdural hemorrhage is low and there is no need for head CT. We discussed x-rays of her thoracic and lumbar spine based on the midline tenderness but based on the low mechanism of injury and her young age concern for a compression fracture or spondylolisthesis is low and patient does not want the imaging obtained. She states her main concern is for any potential damage to the baby. I did discuss the case with SCALE AD[employer]ER on-call and they report that as the patient is under 20 weeks and is technically nonviable that they do not perform any type of monitoring at this time. Therefore I did a bedside ultrasound confirming baby is in the uterus has a normal heartbeat and there was active motion noted as well. Therefore at this time as patient's vitals are stable she is able to ambulate she has not had any vaginal bleeding or discharge and bedside ultrasound confirms a stable IUP with normal heart rate and active motion patient reports that she will take [id number] Tylenol as well as use her TENS unit as for the muscular spasm and contusion from the fall but is otherwise safe to be discharged with outpatient follow-up History & Record Review Discussion w/independent historian: Patient Discharge Plan Triage Chief Complaint: Fall ED Provider: Yovani Uriostegui Dx/Rx/DC Orders Clinical Impression: Accidental fall, Lumbar contusion, Anxiety, GERD (gastroesophageal reflux disease), Intrauterine Instructions: ED Coccyx or Sacrum Contusion, ED Back Contusion Prescriptions: No Action aspirin 81 mg tablet,delayed release (DR/EC) 81 mg PO QDAY PNV [id number] 90 mg iron- 1 mg-200 mg capsule 1 cap PO QDAY Primary Care Provider: Alfredo Barroso Referrals: Alfredo Barroso MD [Primary Care Provider] - Print Language: Indonesian Disposition Disposition: Home, Self Care Discharge Date/Time: 10/25/24 23:14
== END 2024-10-25 23:14 | disposition home or self-care (01) ==
PROVIDERS: Emergency Provider Emergency Medicine; PCP Family Medicine; Visit Provider Emergency Medicine
DX: O9A.212 Injury, poisoning and certain other consequences of external causes complicating pregnancy, second trimester (principal); O99.612 Diseases of the digestive system complicating pregnancy, second trimester; S30.0XXA Contusion of lower back and pelvis, initial encounter; F41.9 Anxiety disorder, unspecified; O99.342 Other mental disorders complicating pregnancy, second trimester; K21.9 Gastro-esophageal reflux disease without esophagitis; F17.210 Nicotine dependence, cigarettes, uncomplicated; O99.892 Other specified diseases and conditions complicating childbirth; W10.9XXA Fall (on) (from) unspecified stairs and steps, initial encounter; Z3A.18 18 weeks gestation of pregnancy
CPT/HCPCS: 99282

== ENCOUNTER 2024-10-30 04:18 | Emergency (ER) | payer MEDICAID, SELFPAY ==
[2024-10-30 04:18] VITALS: BP 119/65; PULSE 96; RESP 18; TEMP 36.4; O2SAT 96; BMI 44.1
--- NOTE | 2024-10-30 04:39 | EX.ED.DYSGE1 ---
HPI History of Present Illness Chief Complaint: Nausea/Vomiting/Diarrhea Informant: patient Narrative Narrative: Patient is a female approximately 18 weeks . She has a past medical history of anxiety as well as GERD and ADHD. With her first she had a traumatic labor and this led to uterine rupture with need for surgery and subsequent small bowel obstruction. Patient denies any repeat obstruction since that time. She does state that she has remote history of C. difficile and recently took a 7-day course of amoxicillin followed by a 7-day course of Flagyl for facial cellulitis/dental infection. She reports that this evening after returning home from work she began to have subjective fever and chills. Following this she began with recurrent bouts of vomiting and loose stool/diarrhea. She denies any blood or discoloration to them. 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 based on her recent antibiotic use and past history of the infection and therefore comes in for evaluation [facility] Medical History Hypotension Dizziness Vitamin D deficiency PCOS (polycystic ovarian syndrome) Obesity GERD (gastroesophageal reflux disease) Hx of deep venous thrombosis History of post traumatic stress disorder SBO (small bowel obstruction) Endometritis Chronic pain Post traumatic stress disorder (PTSD) ADHD (attention deficit hyperactivity disorder) Anxiety Home Medications ?Medication ?Instructions ?Recorded ?Last Taken ?Type aspirin 81 mg tablet,delayed 81 mg PO QDAY 09/28/24 Unknown History release vitamin no.102-iron 90 1 cap PO QDAY 09/28/24 Unknown History mg-folate 1 mg-dha 200 mg capsule dicyclomine 20 mg tablet 20 mg PO 4X/DAY PRN Abdominal 10/30/24 Unknown Rx bloating/spasm #28 tabs ondansetron 4 mg disintegrating 4 mg PO TID PRN nausea and 10/30/24 Unknown Rx tablet vomiting #21 tabs Allergy/AdvReac Type Severity Reaction Status Date / Time cat dander Allergy Hives Verified 10/30/24 04:18 house dust Allergy Hives Verified 10/30/24 04:18 peanut Allergy Swelling Verified 10/30/24 04:18 cranberry AdvReac Rash Verified 10/30/24 04:18 mold AdvReac Other Verified 10/30/24 04:18 morphine AdvReac Chest Verified 10/30/24 04:18 tightness Family History Aunt Cancer maternal aunt - uterine/cervical ca Mother Heart disease Father Diabetes Hypertension Grandmother Kidney disease CVA (cerebral vascular accident) Myocardial infarction CAD (coronary artery disease) Diabetes Hypertension Surgical History Hx laparoscopic cholecystectomy Dehiscence of perineal wound Fourth degree perineal laceration History of gynecologic surgery Social History Smoking Status: Former smoker alcohol intake: current alcohol intake frequency: a few times a week Alcohol type: beer substance use type: does not use ROS ROS ED Constitutional Constitutional ED: Reports chills, fever(s) and subjective Eyes Eyes: Denies change in vision ENT ENT ED: Denies sore throat Cardiovascular Cardiovascular: Denies chest pain Respiratory/Chest Respiratory/Chest: Denies cough or dyspnea Gastrointestinal Gastrointestinal: Reports abdominal pain, diarrhea, nausea and vomiting; Denies melena Genitourinary Genitourinary ED: Denies dysuria Musculoskeletal Musculoskeletal: Reports myalgias Integumentary Denies rash Neurologic Neurologic: Reports headache(s) Psychiatric Psychiatric: Reports anxiety Hematologic/Lymphatic Hematologic/Lymphatic: Denies easy bleeding or easy bruising EXAM Physical Exam Const Vital Signs: 10/30/24 04:18 Temperature 97.6 F L Temperature Source Oral Pulse Rate 96 Respiratory Rate 18 Blood Pressure 119/65 Blood Pressure Mean 83 Pulse Ox 96 Oxygen Delivery Method Room Air Positive well nourished, well developed and obese General Appearance ED: well developed; Negative for pallor Nutritional Appearance: obese HEENT Reports dry mucous membranes HEENT Narrative: Mucous membranes are mildly dry and tacky No tongue or lip swelling no oral lesions no airway edema or compromise No secondary findings in the posterior pharynx to suggest infection Mouth ED: Yes dry mucous membranes Mouth: dry mucous membranes Eyes PERRL and EOMs intact bilaterally General Eye ED: Negative for scleral icterus Neck supple Neck Narrative: No nuchal rigidity or meningeal signs No crepitance or subcutaneous emphysema noted Resp normal respiratory effort and clear to auscultation bilaterally Cardio regular rate and regular rhythm Rate: other Other Details: Heart is regular rate and rhythm without murmurs rubs or gallop Radial and carotid pulses are equal and symmetric GI no masses GI Narrative: Abdomen is gravid with fundus consistent with reported gestational age. There is mild diffuse pain to palpation without voluntary guarding or rigidity. No pulsatile mass or fluid wave. Auscultation: hyperactive bowel sounds Palpation: soft Extremity normal to inspection Extremity Narrative: No asymmetric edema no pitting edema negative Homans' sign bilaterally Neuro oriented x3, CN's II-XII intact bilaterally and no sensory deficits noted Sensorium / Orientation: alert Motor Exam: strength 5/5 throughout Psych Mood & Affect: anxious Skin no rashes or lesions noted Skin Narrative: Skin turgor is slightly increased General Skin Exam: Negative for jaundice or pallor MDM MDM MDM Narrative Medical decision making narrative: Patient arrived to the ER with stable vitals. History of subjective fevers and chills followed by bouts of vomiting and diarrhea is most consistent with a viral stomach infection such as norovirus versus rotavirus. In order to ensure she has not developed acute kidney injury or clinically significant electrolyte abnormality I did elect to perform basic laboratory studies. A stool study was also ordered as patient's had a total of 14 days of antibiotics with 7 of them being from amoxicillin and 7 from Flagyl and therefore there is mild concern for infectious diarrhea such as C. difficile. The patient was ordered 2 L of fluid as well as Benadryl and Compazine to help with her symptoms. After receiving the medication she had no further bouts of vomiting or diarrhea. After 1 L of fluid had infused she reported feeling better and even though I had ordered 2 L based on her dehydration and status she states that as she is better at this time she does not want to wait for the second liter of fluid to run. She also was unable to give us a sample for a C. difficile study at this time. However as she has both vomiting and diarrhea I have low concern for C. difficile. 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 Labs: Laboratory Results - last 24 hr 10/30/24 04:52 WBC 10.2 RBC 4.46 Hgb 13.5 Hct 39.6 MCV 88.8 MCH 30.3 MCHC 34.1 RDW Std Deviation 41.7 RDW Coeff of Wiliam 12.8 Plt Count 249 MPV 8.2 Immature Gran % (Auto) 0.900 Neut % (Auto) 91.2 H Lymph % (Auto) 4.1 L Beaver % (Auto) 3.4 Eos % (Auto) 0.1 Baso % (Auto) 0.3 Absolute Neuts (auto) 9.3 H Absolute Lymphs (auto) 0.42 L Nucleated RBC % 0 Sodium 136 Potassium 3.6 Chloride 109 H Carbon Dioxide 18.0 L Anion Gap 9 BUN 11 Creatinine 0.54 L Estim Creat Clear Calc 175.40 Est GFR (MDRD) Af Amer 172 Est GFR (MDRD) Non-Af 142 BUN/Creatinine Ratio 20.5 H Glucose 139 H Calcium 8.8 Total Bilirubin 1.20 H Direct Bilirubin 0.25 AST 9 L ALT 13 Alkaline Phosphatase 57 Total Protein 7.0 Albumin 2.9 L Globulin 4.1 Lipase 27 Discharge Plan Triage Chief Complaint: Nausea/Vomiting/Diarrhea ED Provider: Yovani Uriostegui Dx/Rx/DC Orders Clinical Impression: Nausea vomiting and diarrhea, Dehydration, ADHD (attention deficit hyperactivity disorder), Intrauterine Instructions: ED Dehydration (Adult), ED Gastroenteritis, Viral (Adult) Prescriptions: New ondansetron 4 mg tablet,disintegrating 4 mg PO TID PRN (Reason: nausea and vomiting) Qty: 21 1RF dicyclomine 20 mg tablet 20 mg PO 4X/DAY PRN (Reason: Abdominal bloating/spasm) Qty: 28 0RF No Action aspirin 81 mg tablet,delayed release (DR/EC) 81 mg PO QDAY PNV [id number]-[id number] 90 mg iron- 1 mg-200 mg capsule 1 cap PO QDAY Primary Care Provider: Alfredo Barroso Referrals: Alfredo Barroso MD [Primary Care Provider] - Activity Restrictions/Additional Instructions: Your history exam and workup indicates you have a viral stomach infection which will cause abdominal bloating/pain along with nausea vomiting diarrhea anywhere from 1 day to 7/10 days with the average being 3 days. Take the prescribed medication as directed to help control your symptoms and keep yourself well-hydrated. If symptoms persist despite taking your medication you have worsening pain or develop a fever or any further concerns please return to the ER for repeat evaluation. Print Language: Citizen Of [place] Disposition Disposition: Home, Self Care
[2024-10-30] MEDS: 0.9% Normal Saline (1000mL) 1,000 ML 999 ML IV (04:59)
[2024-10-30] MEDS: DiphenhydrAMINE 50 MG/ML Syringe 25 MG IV (04:59)
[2024-10-30] MEDS: proCHLORPERazine 10 MG/2 ML Vial IV (04:59)
[2024-10-30 05:01] LABS: Absolute Lymphocyte Count 0.42 X10^3/uL (0.83-4.51); Absolute Neutrophil Count 9.3 X10^3/uL (2.0-7.7); Basophil# 0.03 X10^3/uL; Basophil% 0.3 % (0-1); Eosinophil# 0.01 X10^3/uL; Eosinophils% 0.1 % (0-5); Hematocrit 39.6 % (37-47); Hemoglobin 13.5 g/dL (12.0-15.0); Lymphocyte # 0.42 X10^3/ul (0.83-4.51); Lymphocyte % 4.1 % (19-41); Mean Corp Hgb Conc 34.1 g/dL (32-36); Mean Corpuscular Hgb 30.3 pg (27.0-32.0); Mean Corpuscular Volume 88.8 fL (81-99); Mean Platelet Vol. 8.2 fl (6.2-12.0); Monocyte# 0.35 X10^3/uL; Monocyte% 3.4 % (0-10); NRBC Flagged by Analyzer 0 % (0-5); Neutrophil # 9.34 X10^3/uL (2.7-7.7); Neutrophil % 91.2 % (47-70); POSITIVE DIFFERENTIAL YES; Platelet Count 249 K/mm3 (150-450); RBC Distribution Width CV 12.8 % (11.6-14.6); RBC Distribution Width SD 41.7 fl (35.1-43.9); Red Blood Count 4.46 M/mm3 (4.2-5.4); White Blood Count 10.2 K/mm3 (4.4-11.0)
[2024-10-30 05:20] LABS: AST(SGOT) 9 U/L (15-37); Alanine Aminotransfer ALT/SGPT 13 U/L (13-56); Albumin, Serum 2.9 g/dL (3.2-5.0); Alkaline Phosphatase 57 U/L (45-117); Anion Gap 9 (5-15); BUN 11 mg/dL (7-18); BUN/Creat Ratio 20.5 RATIO (10-20); Bilirubin, Direct 0.25 mg/dL (0.00-0.30); Calcium,Total 8.8 mg/dL (8.5-10.1); Chloride 109 mmol/L (98-107); Creatinine, Serum 0.54 mg/dL (0.55-1.02); EST Glomerular Filtration Rate 142 mL/min (>60); Est Glom Filt Rate - Afr Amer 172 mL/min (>60); Globulin 4.1 g/dL (2.2-4.2); Glucose 139 mg/dL (74-106); Lipase 27 U/L (13-75); Potassium 3.6 mmol/L (3.5-5.1); Sodium Level 136 mmol/L (136-145)
[2024-10-30 06:06] VITALS: BP 112/66; PULSE 88; RESP 16; TEMP 36.6; O2SAT 99
== END 2024-10-30 06:06 | disposition home or self-care (01) ==
PROVIDERS: Emergency Provider Emergency Medicine; PCP Family Medicine; Visit Provider Emergency Medicine
DX: O21.9 Vomiting of pregnancy, unspecified (principal); F41.9 Anxiety disorder, unspecified; O99.342 Other mental disorders complicating pregnancy, second trimester; F90.9 Attention-deficit hyperactivity disorder, unspecified type; O99.282 Endocrine, nutritional and metabolic diseases complicating pregnancy, second trimester; E86.0 Dehydration; R19.7 Diarrhea, unspecified; Z87.891 Personal history of nicotine dependence; Z3A.18 18 weeks gestation of pregnancy; R51.9 Headache, unspecified; E66.9 Obesity, unspecified; K21.9 Gastro-esophageal reflux disease without esophagitis; O99.212 Obesity complicating pregnancy, second trimester; O99.612 Diseases of the digestive system complicating pregnancy, second trimester
CPT/HCPCS: 80048; 80076; 83690; 85025; 99283; A4216

== ENCOUNTER 2025-01-05 10:07 | Outpatient (CLI) | payer MEDICAID, SELFPAY ==
[2025-01-05] VITALS (25 sets, daily range): BP systolic 141; BP diastolic 79; PULSE 71–97; RESP 16; TEMP 37.1; O2SAT 94–100; BMI 48.1
[2025-01-05 10:43] LABS: Color, Urine Straw (Yellow); Glucose, Dipstick Normal (Normal); Ketone-Dipstick Negative (Negative); Leukocyte Esterase-Dipstick Negative /ul (Negative); Nitrite-Dipstick Negative (Negative); Occult Blood-Urine Negative /ul (Negative); Protein-Dipstick Negative (Negative); Specific Gravity, Urine 1.005 (1.002-1.030); Urine Bilirubin Dipstick Negative (Negative); Urine Clarity Clear (Clear); Urine Urobilinogen Normal (Normal)
[2025-01-05 12:50] LABS: Fetal Fibronectin Negative; Record Kit Lot#, fFN J4938
--- NOTE | 2025-01-06 06:50 | OB.TRI.NOTE ---
HPI - General General Date of Admission: 01/05/25 Date of Service: 01/05/25 Chief Complaint: contractions HPI Narrative CARLOS CHAVEZ, is a 29 F who presents at 27 weeks with 3 days of contractions. No LOF. [place] quiet. FFN negative. Cervix closed. Discharged home after reactive NST Maternal Data Information Final MJ: 04/01/25 Gestational age: 27+5 PFSH PFSH Medical History Hypotension Dizziness Vitamin D deficiency PCOS (polycystic ovarian syndrome) Obesity GERD (gastroesophageal reflux disease) Hx of deep venous thrombosis History of post traumatic stress disorder SBO (small bowel obstruction) Endometritis Chronic pain Post traumatic stress disorder (PTSD) ADHD (attention deficit hyperactivity disorder) Anxiety Home Medications ?Medication ?Instructions ?Recorded ?Last Taken ?Type aspirin 81 mg tablet,delayed 81 mg PO QDAY 09/28/24 01/04/25 History release vitamin no.102-iron 90 1 cap PO QDAY 09/28/24 01/04/25 History mg-folate 1 mg-dha 200 mg capsule Allergy/AdvReac Type Severity Reaction Status Date / Time cat dander Allergy Hives Verified 01/05/25 10:22 house dust Allergy Hives Verified 01/05/25 10:22 peanut Allergy Swelling Verified 01/05/25 10:22 cranberry AdvReac Rash Verified 01/05/25 10:22 mold AdvReac Other Verified 01/05/25 10:22 morphine AdvReac Chest Verified 01/05/25 10:22 tightness Family History Aunt Cancer maternal aunt - uterine/cervical ca Mother Heart disease Father Diabetes Hypertension Grandmother Kidney disease CVA (cerebral vascular accident) Myocardial infarction CAD (coronary artery disease) Diabetes Hypertension Surgical History Hx laparoscopic cholecystectomy Dehiscence of perineal wound Fourth degree perineal laceration History of gynecologic surgery Social History Smoking Status: Former smoker alcohol intake: current alcohol intake frequency: a few times a week Alcohol type: beer substance use type: does not use History 2 Elective abortions Hx Para 1 Spontaneous abortions Hx # Term Pregnancies Ectopic pregnancies Hx # Pregnancies Multiple births # of living children NST FHR Rate Baby A Baseline: 140 Variability:: Moderate Accelerations:: 15 x 15 Decelerations:: Variable (x 1) NST Reactive:: Yes Uterine Activity:: quiet Assessment & Plan (1) contractions: (2) 27 weeks gestation of : PLAN: Plan discharge home
== END 2025-01-05 13:15 | disposition home or self-care (01) ==
LOC: WPOUT 10:07 → WP 10:11
PROVIDERS: Obstetrics & Gynecology; PCP Family Medicine; Referring Provider Obstetrics & Gynecology; Visit Provider Obstetrics & Gynecology
DX: O47.02 False labor before 37 completed weeks of gestation, second trimester (principal); Z3A.27 27 weeks gestation of pregnancy; O99.612 Diseases of the digestive system complicating pregnancy, second trimester; K21.9 Gastro-esophageal reflux disease without esophagitis; Z87.891 Personal history of nicotine dependence
CPT/HCPCS: 59050; 81002; 82731; 99221; G0378

== ENCOUNTER 2025-01-09 12:15 | Outpatient (CLI) | payer MEDICAID, SELFPAY ==
[2025-01-09 12:34] VITALS: RESP 16; TEMP 36.9
[2025-01-09 12:36] VITALS: BP 119/56; PULSE 75
[2025-01-09 12:58] VITALS: BMI 48.1
[2025-01-09 13:51] LABS: ROM Internal Control Test YES-OK TO RESULT pt. (Internal QC); ROM Patient Test Negative (Negative); Record Kit Lot#, ROM+ K3294
--- NOTE | 2025-01-10 10:37 | OB.TRI.NOTE ---
HPI - General General Date of Admission: 01/09/25 Date of Service: 01/09/25 Chief Complaint: abdominal trauma in pregnacy HPI Narrative CARLOS CHAVEZ, is a 29 F who presents c/o of her daughter jumping on her abdomen. . Maternal Data Information Final MJ: 04/01/25 Gestational age: 29 PFSH PFSH Medical History Hypotension Dizziness Vitamin D deficiency PCOS (polycystic ovarian syndrome) Obesity GERD (gastroesophageal reflux disease) Hx of deep venous thrombosis History of post traumatic stress disorder SBO (small bowel obstruction) Endometritis Chronic pain Post traumatic stress disorder (PTSD) ADHD (attention deficit hyperactivity disorder) Anxiety Home Medications ?Medication ?Instructions ?Recorded ?Last Taken ?Type aspirin 81 mg tablet,delayed 81 mg PO QDAY 09/28/24 01/04/25 History release vitamin no.102-iron 90 1 cap PO QDAY 09/28/24 01/04/25 History mg-folate 1 mg-dha 200 mg capsule Allergy/AdvReac Type Severity Reaction Status Date / Time cat dander Allergy Hives Verified 01/05/25 10:22 house dust Allergy Hives Verified 01/05/25 10:22 peanut Allergy Swelling Verified 01/05/25 10:22 cranberry AdvReac Rash Verified 01/05/25 10:22 mold AdvReac Other Verified 01/05/25 10:22 morphine AdvReac Chest Verified 01/05/25 10:22 tightness Family History Aunt Cancer maternal aunt - uterine/cervical ca Mother Heart disease Father Diabetes Hypertension Grandmother Kidney disease CVA (cerebral vascular accident) Myocardial infarction CAD (coronary artery disease) Diabetes Hypertension Surgical History Hx laparoscopic cholecystectomy Dehiscence of perineal wound Fourth degree perineal laceration History of gynecologic surgery Social History Smoking Status: Former smoker alcohol intake: current alcohol intake frequency: a few times a week Alcohol type: beer substance use type: does not use History 2 Elective abortions Hx Para 1 Spontaneous abortions Hx # Term Pregnancies Ectopic pregnancies Hx # Pregnancies Multiple births # of living children NST FHR Rate Baby A Baseline: 145 Variability:: Moderate Accelerations:: 10 x 10 Decelerations:: Variable NST Reactive:: Yes and Appropriate for gestational age FHR Category:: Category I (for > 20 min before discharge) Uterine Activity:: no regular ctxs. Assessment & Plan (1) 29 weeks gestation of : PLAN: A+ blood type. NST appropriate for gest age s/p daughter jumping on abdome d/c home, return prn pain/bleeding/ctxs or decreased FM otherwise f/u in office as scheduled (2) High risk multigravida in third trimester: (3) Abdominal pain affecting , antepartum:
== END 2025-01-09 15:05 | disposition home or self-care (01) ==
LOC: WPOUT 12:21 → WP 12:21
PROVIDERS: PCP Family Medicine; Referring Provider Obstetrics & Gynecology; Visit Provider Obstetrics & Gynecology
DX: O09.893 Supervision of other high risk pregnancies, third trimester (principal); Z90.49 Acquired absence of other specified parts of digestive tract; Z87.891 Personal history of nicotine dependence; O99.892 Other specified diseases and conditions complicating childbirth; R10.9 Unspecified abdominal pain; O09.43 Supervision of pregnancy with grand multiparity, third trimester; Z3A.29 29 weeks gestation of pregnancy
CPT/HCPCS: 59025; 59050; 84112; 99221; G0378

== ENCOUNTER 2025-02-09 17:35 | Outpatient (CLI) | payer MEDICAID, SELFPAY ==
[2025-02-09 18:10] VITALS: BMI 49.1
[2025-02-09 18:16] VITALS: BP 120/73; PULSE 85; RESP 17; TEMP 36.1
[2025-02-09 19:55] LABS: ROM Internal Control Test YES-OK TO RESULT pt. (Internal QC); ROM Patient Test Negative (Negative); Record Kit Lot#, ROM+ K3358
--- NOTE | 2025-02-09 20:32 | OB.TRI.HP_ITS ---
HPI - General General Date of Admission: 02/09/25 Date of Service: 02/09/25 Chief Complaint: decreased FM HPI Narrative CARLOS CHAVEZ, is a 29 F who presents 2 para 1 complaining of decreased movement today. She denies any vaginal bleeding or contractions. She states she might have some urinary incontinence but she is not sure so she has had some watery discharge. 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 Patient had a history of an ileostomy and is planned to have a primary section at a tertiary care center this .. Maternal Data Information Final MJ: 04/01/25 Gestational age: 32 5/7 PFSH [facility] Medical History Hypotension Dizziness Vitamin D deficiency PCOS (polycystic ovarian syndrome) Obesity GERD (gastroesophageal reflux disease) Hx of deep venous thrombosis History of post traumatic stress disorder SBO (small bowel obstruction) Endometritis Chronic pain Post traumatic stress disorder (PTSD) ADHD (attention deficit hyperactivity disorder) Anxiety Home Medications ?Medication ?Instructions ?Recorded ?Last Taken ?Type aspirin 81 mg tablet,delayed 81 mg PO QDAY 09/28/24 History release vitamin no.102-iron 90 1 cap PO QDAY 09/28/24 01/04/25 History mg-folate 1 mg-dha 200 mg capsule Allergy/AdvReac Type Severity Reaction Status Date / Time cat dander Allergy Hives Verified 02/09/25 18:16 house dust Allergy Hives Verified 02/09/25 18:16 peanut Allergy Swelling Verified 02/09/25 18:16 cranberry AdvReac Rash Verified 02/09/25 18:16 mold AdvReac Other Verified 02/09/25 18:16 morphine AdvReac Chest Verified 02/09/25 18:16 tightness Family History Aunt Cancer maternal aunt - uterine/cervical ca Mother Heart disease Father Diabetes Hypertension Grandmother Kidney disease CVA (cerebral vascular accident) Myocardial infarction CAD (coronary artery disease) Diabetes Hypertension Surgical History Hx laparoscopic cholecystectomy Dehiscence of perineal wound Fourth degree perineal laceration History of gynecologic surgery Social History Smoking Status: Former smoker alcohol intake: current alcohol intake frequency: a few times a week Alcohol type: beer substance use type: does not use History 2 Elective abortions Hx Para 1 Spontaneous abortions Hx # Term Pregnancies Ectopic pregnancies Hx # Pregnancies Multiple births # of living children Physical Exam Narrative General- awake, alert, nad abd- soft, nontender, gravid ext- trace edema NST FHR Rate Baby A Baseline: 140 Variability:: Moderate Accelerations:: 15 x 15 Decelerations:: None NST Reactive:: Yes Uterine Activity:: no regular ctxs Assessment & Plan (1) High risk multigravida in third trimester: (2) 32 weeks gestation of : (3) Decreased movement affecting management of mother, antepartum: QUALIFIERS: Fetus number: single or unspecified fetus Qualified Code(s): O36.8190 - Decreased movements, unspecified trimester, not applicable or unspecified PLAN: Patient appreciates movement now. NST is reactive and reassuring. Patient decreased home with kick counts and follow-up in office or as needed or as scheduled. (4) Vaginal discharge: PLAN: Suspect urinary incontinence. ROM plus is negative, no evidence of spontaneous rupture membranes.
== END 2025-02-09 20:05 | disposition home or self-care (01) ==
LOC: WPOUT 17:38 → WP 17:39
PROVIDERS: PCP Family Medicine; Referring Provider Obstetrics & Gynecology; Visit Provider Obstetrics & Gynecology
DX: O36.8130 Decreased fetal movements, third trimester, not applicable or unspecified (principal); Z93.2 Ileostomy status; K21.9 Gastro-esophageal reflux disease without esophagitis; Z87.891 Personal history of nicotine dependence; Z3A.32 32 weeks gestation of pregnancy; O99.213 Obesity complicating pregnancy, third trimester; O99.613 Diseases of the digestive system complicating pregnancy, third trimester; Z98.890 Other specified postprocedural states
CPT/HCPCS: 59025; 59050; 84112; 99221; G0378

== ENCOUNTER 2025-03-02 14:10 | Outpatient (CLI) | payer MEDICAID, SELFPAY ==
[2025-03-02 14:44] VITALS: BP 134/74; PULSE 90; O2SAT 98
[2025-03-02 14:45] VITALS: RESP 13; TEMP 36.7; O2SAT 98
[2025-03-02 15:06] VITALS: BMI 49.7
[2025-03-02 15:49] LABS: Hematocrit 34.6 % (37-47); Hemoglobin 11.6 g/dL (12.0-15.0); Mean Corp Hgb Conc 33.5 g/dL (32-36); Mean Corpuscular Hgb 27.1 pg (27.0-32.0); Mean Corpuscular Volume 80.8 fL (81-99); Mean Platelet Vol. 8.5 fl (6.2-12.0); Platelet Count 324 K/mm3 (150-450); RBC Distribution Width SD 41.2 fl (35.1-43.9); Red Blood Count 4.28 M/mm3 (4.2-5.4); White Blood Count 9.2 K/mm3 (4.4-11.0)
[2025-03-02 15:57] LABS: Color, Urine Straw (Yellow); Glucose, Dipstick Normal (Normal); Ketone-Dipstick Negative (Negative); Leukocyte Esterase-Dipstick 25 /ul (Negative); Nitrite-Dipstick Negative (Negative); Occult Blood-Urine Negative /ul (Negative); Protein-Dipstick 30 mg/dl (Negative); Urine Bilirubin Dipstick Negative (Negative); Urine Clarity Sl. Cloudy (Clear); Urine Urobilinogen Normal (Normal); Urine pH 6.5 (5.0 - 8.0)
[2025-03-02 16:07] VITALS: BP 121/73; PULSE 98
[2025-03-02] MEDS: Acetaminophen 500 MG Tablet 1000 MG PO (16:39)
[2025-03-02] MEDS: DiphenhydrAMINE 25 MG Capsule PO (16:39)
[2025-03-02 16:57] LABS: AST(SGOT) 11 U/L (<=31); Alanine Aminotransfer ALT/SGPT 7 U/L (<=34); Creatinine, Serum 0.48 mg/dL (0.70-1.20); EST Glomerular Filtration Rate 131 (>60); Estimated Creatinine Clearance 216.79 ml/min (50-250); Uric Acid 4.8 mg/dL (2.6-6.0)
[2025-03-02 16:58] LABS: Protein, Urine (Random) 18.9 mg/dL (0.0-12.0); Protein:Creat Ratio 244 mg/g CRE (0-200)
--- NOTE | 2025-03-03 08:07 | OB.TRI.NOTE ---
HPI - General General Date of Admission: 03/02/25 Date of Service: 03/02/25 Chief Complaint: CHO, decreased movement, lower abd pain HPI Narrative CARLOS CHAVEZ, is a 29 F who presents with a headache, RLQ pain and decreased movement. No LOF no bleeding. HX of ileostomy since last delivery. Reactive NST with improved movement. CHO better with Tylenol and Benadryl. Labs normal. BP normal. Maternal Data Information Final MJ: 04/01/25 Gestational age: 35+5 PFSH PFSH Medical History Hypotension Dizziness Vitamin D deficiency PCOS (polycystic ovarian syndrome) Obesity GERD (gastroesophageal reflux disease) Hx of deep venous thrombosis History of post traumatic stress disorder SBO (small bowel obstruction) Endometritis Chronic pain Post traumatic stress disorder (PTSD) ADHD (attention deficit hyperactivity disorder) Anxiety Home Medications ?Medication ?Instructions ?Recorded ?Last Taken ?Type aspirin 81 mg tablet,delayed 81 mg PO QDAY 09/28/24 01/04/25 History release vitamin no.102-iron 90 1 cap PO QDAY 09/28/24 01/04/25 History mg-folate 1 mg-dha 200 mg capsule Allergy/AdvReac Type Severity Reaction Status Date / Time cat dander Allergy Hives Verified 02/09/25 18:16 house dust Allergy Hives Verified 02/09/25 18:16 peanut Allergy Swelling Verified 02/09/25 18:16 cranberry AdvReac Rash Verified 02/09/25 18:16 mold AdvReac Other Verified 02/09/25 18:16 morphine AdvReac Chest Verified 02/09/25 18:16 tightness Family History Aunt Cancer maternal aunt - uterine/cervical ca Mother Heart disease Father Diabetes Hypertension Grandmother Kidney disease CVA (cerebral vascular accident) Myocardial infarction CAD (coronary artery disease) Diabetes Hypertension Surgical History Hx laparoscopic cholecystectomy Dehiscence of perineal wound Fourth degree perineal laceration History of gynecologic surgery Social History Smoking Status: Former smoker alcohol intake: current alcohol intake frequency: a few times a week Alcohol type: beer substance use type: does not use History 2 Elective abortions Hx Para 1 Spontaneous abortions Hx # Term Pregnancies Ectopic pregnancies Hx # Pregnancies Multiple births # of living children NST FHR Rate Baby A Baseline: 140 Variability:: Moderate Accelerations:: 15 x 15 Decelerations:: None NST Reactive:: Yes Assessment & Plan (1) Decreased movement affecting management of mother, antepartum: QUALIFIERS: Fetus number: single or unspecified fetus Qualified Code(s): O36.8190 - Decreased movements, unspecified trimester, not applicable or unspecified (2) Abdominal pain affecting , antepartum: (3) Headache in , antepartum: (4) 35 weeks gestation of : PLAN: Plan Discharge home with improved symptoms
== END 2025-03-02 17:20 | disposition home or self-care (01) ==
LOC: WPOUT 14:19 → WP 14:20
PROVIDERS: PCP Family Medicine; Referring Provider Obstetrics & Gynecology; Visit Provider Obstetrics & Gynecology
DX: O36.8130 Decreased fetal movements, third trimester, not applicable or unspecified (principal); R10.31 Right lower quadrant pain; R51.9 Headache, unspecified; K21.9 Gastro-esophageal reflux disease without esophagitis; Z87.891 Personal history of nicotine dependence; O99.613 Diseases of the digestive system complicating pregnancy, third trimester; Z3A.35 35 weeks gestation of pregnancy
CPT/HCPCS: 36415; 59025; 59050; 81002; 82565; 82570; 84156; 84450; 84460; 84550; 85027; 99221; G0378

== ENCOUNTER 2025-06-18 17:33 | Emergency (ER) | payer MEDICAID, SELFPAY ==
[2025-06-18 17:34] VITALS: BP 141/81; PULSE 91; RESP 16; TEMP 36.6; O2SAT 99; BMI 47.5
--- NOTE | 2025-06-18 18:06 | EX.ED.GENINJ ---
HPI History of Present Illness Chief Complaint: Laceration Narrative Narrative: Patient is a 30-year-old female presenting to the emergency department for a finger laceration. Patient has a past medical history as below. She reports that her last tetanus vaccine was in the past 5 years. Reports that she cut her left distal index finger with a steak knife. Denies any other injuries. [facility] Medical History Hypotension Dizziness Vitamin D deficiency PCOS (polycystic ovarian syndrome) Obesity GERD (gastroesophageal reflux disease) Hx of deep venous thrombosis History of post traumatic stress disorder SBO (small bowel obstruction) Endometritis Chronic pain Post traumatic stress disorder (PTSD) ADHD (attention deficit hyperactivity disorder) Anxiety Home Medications ?Medication ?Instructions ?Recorded ?Last Taken ?Type phentermine 37.5 mg capsule 37.5 mg PO DAILY 06/18/25 Unknown History Allergy/AdvReac Type Severity Reaction Status Date / Time cat dander Allergy Hives Verified 06/18/25 17:34 house dust Allergy Hives Verified 06/18/25 17:34 peanut Allergy Swelling Verified 06/18/25 17:34 cranberry AdvReac Rash Verified 06/18/25 17:34 mold AdvReac Other Verified 06/18/25 17:34 morphine AdvReac Chest Verified 06/18/25 17:34 tightness Family History Aunt Cancer maternal aunt - uterine/cervical ca Mother Heart disease Father Diabetes Hypertension Grandmother Kidney disease CVA (cerebral vascular accident) Myocardial infarction CAD (coronary artery disease) Diabetes Hypertension Surgical History Hx laparoscopic cholecystectomy Dehiscence of perineal wound Fourth degree perineal laceration History of gynecologic surgery Social History Smoking Status: Former smoker alcohol intake: current alcohol intake frequency: a few times a week Alcohol type: beer substance use type: does not use ROS ROS ED ROS Narrative See HPI EXAM Physical Exam Narrative Exam Narrative: Vital signs: Reviewed General: Alert and oriented x 3. No acute distress HEENT: Head is normocephalic and atraumatic, sinuses nontender, pupils equal round and reactive. Nares are patent. Oropharynx and throat exams normal. Neck: Supple without lymphadenopathy nontender Cardiovascular: Regular rate and rhythm, no murmurs. No rubs or gallops. Normal S1 and S2 Respiratory: Clear to auscultation bilaterally. No wheezes, rales, rhonchi Abdominal: Soft and nontender. Normal bowel sounds. No guarding or rebound. Nonsurgical abdomen Extremities: Left distal index finger with half cm superficial laceration. No active bleeding on exam. No FB on wound exploration. Radial pulses intact bilaterally. Sensation and motor intact in radial, median and ulnar distributions. No tenderness. No bruising. The rest of the physical exam is unremarkable Const Vital Signs: 06/18/25 17:34 Temperature 97.8 F Temperature Source Temporal Pulse Rate 91 Respiratory Rate 16 Blood Pressure 141/81 H Blood Pressure Mean 101 Pulse Ox 99 Oxygen Delivery Method Room Air MDM MDM MDM Narrative Medical decision making narrative: Patient is a 30-year-old female presenting to the emergency department for a left index finger laceration. Patient was seen and examined. Vitals are stable. Patient resting in bed comfortably in no acute distress. Tetanus vaccine is up to date. Wound copiously irrigated. No foreign body noted. Neurovascularly intact. The laceration is very superficial I do not think there is any indication for x-ray imaging of the finger. Wound repaired with dermabond. Wound will be dressed. Given wound care instructions. Patient discharged from the Emergency Department. I do not feel that the patient's evaluation reveals any acute reason for admission at this time. I instructed them to either follow-up with their primary care physician or promptly return to the Emergency Department for reevaluation should symptoms worsen or new symptoms develop. I explained what symptoms would indicate the need to return to the emergency department. Shared decision making was used. The patient voiced understanding of the treatment plan and is agreeable with it. Clinical impression: finger laceration History & Record Review Discussion w/independent historian: Patient Discharge Plan Triage Chief Complaint: Laceration ED Provider: Patricia Waite Dx/Rx/DC Orders Prescriptions: No Action phentermine 37.5 mg capsule 37.5 mg PO DAILY Primary Care Provider: Alfredo Barroso Referrals: Alfredo Barroso MD [Primary Care Provider] - Print Language: Latvian
[2025-06-18 18:29] VITALS: BP 141/81; PULSE 91; RESP 16; TEMP 36.6; O2SAT 99
--- OUTSIDE RECORDS SUMMARY | 2025-06-18 18:37 | XMS RPT_ITS | CCD ---
Author Organization [facility] Care Team Providers Care Department Supervisor Name Role Phone Poornima iJmenez MD Unavailable Unavailable Primary Care Provider UnavailDAY Romero MD Primary Care Physician Julia Collado Unavailable Roverto Diane MD Primary Care Provider Unknown, Referring Provider Unavailable Unav ailable Roverto Diane MD Primary Care Provider [phone] Roverto Diane MD Primary Care Provider [phone] DAY VELAZQUEZ MD Primary Care Physician Darryl Rodriguez Referring Unavailable Darryl Rodriguez Attending Unavailable Darryl Rodriguez Admitting Unavailable UNKNOWN, PCP Primary Care Unavailable Dr. Darryl Rodriguez Attending Unavailable UNKNOWN, PCP Primary Care Unavailable PCP, Pt States None Referring Unavailable Dr. Darryl Rodriguez Attending Unavailable UNKNOWN, PCP Primary Care Unavailable Self, Referral Referring Unavailable Dr. Darryl Rodriguez Attending Unavailable UNKNOWN, PCP Primary Care Unavailable Patient, Unavailable Referring Unavailable Dr. Darryl Rodriguze Admitting Unavailable Roverto Diane MD Primary Care Provider LISA HUMPHREY DO Attending Unavailable DAY VELAZQUEZ MD Primary Care Unavailable QUINTON PINO Attending Unavailable DAY VELAZQUEZ MD Primary Care Unavailable LISA HUMPHREY DO Attending Unavailable DAY VELAZQUEZ MD Primary Care Unavailable DAY VELAZQUEZ MD Attending Unavailable DAY VELAZQUEZ MD Primary Care Unavailable LISA HUMPHREY DO Attending Unavailable DAY VELAZQUEZ MD Primary Care Unavailable DARREL OCHOA MD Consulting Unavailable BUDDY NORMAN MD Consulting Unavailable LISA HUMPHREY DO Attending Unavailable DAY VELAZQUEZ MD Primary Care Unavailable DAY VELAZQUEZ MD Attending Unavailable CAROLINE CERDA DAY Primary Care Unavailable YARA OGDEN MD Consulting Unavailable CAROLINE CERDA, DAY Admitting Unavailable NICK CERDA, MIKI Consulting Unavailable JUANJO MOTA MD Consulting Unavailable CAROLINE CERDA, DAY Attending Unavailable CAROLINE CERDA, DAY Primary Care Unavailable CAROLINE CREDA, DAY Attending Unavailable CAROLINE CERDA, DAY Primary Care Unavailable CAROLINE CERDA, DAY Attending Unavailable CAROLINE CERDA, DAY Primary Care Unavailable CAROLINE CERDA, DAY Attending Unavailable CAROLINE CERDA, DAY Primary Care Unavailable CAROLINE CERDA, DAY Attending Unavailable CAROLINE CERDA, DAY Primary Care Unavailable CAROLINE CERDA, DAY Attending Unavailable CAROLINE CERDA, SARMARY ALICE Primary Care Unavailable LISA HUMPHREY DO Attending Unavailable CAROLINE CERDA, DAY Primary Care Unavailable CAROLINE CERDA, DAY Attending Unavailable CAROLINE CERDA, DAY Primary Care Unavailable CAROLINE CERDA, DAY Attending Unavailable CAROLINE CERDA, DAY Primary Care Unavailable Dr. Alfredo Barroso Primary Care Provider Roz, Dr. Frank Emergency Provider [phone] Dr. Christofer Nj Attending Provider Dr. Christofer Nj Admit Provider Dr. Christofer Nj Other Provider Dr. Christofer Nj Referring Provider Dr. Alfredo Barroso Primary Care Provider Dr. Zac Courtney Emergency Provider [phone] Dr. Christofer Nj Attending Provider Dr. Christofer Nj Admit Provider Dr. Christofer Nj Other Provider Dr. Christofer Nj Referring Provider ROVERTO DIANE Primary Care Unavailable HUMBERTO SCHULTZ Referring Unavailable NO, DOCTOR ON Consulting Unavailable ENOCH MEDINA Attending Unavailable ENOCH MEDINA Primary Care Unavailable EONCH MEDINA Admitting Unavailable Roverto Diane MD Primary Care Provider Roverto Diane MD Primary Care Provider ARSLAN, ROVERTO A Primary Care Unavailable ANGI SANTOS Referring Unavailable WANSTEPHANIE, SUSAN A Referring Unavailable ARSLAN, ROVERTO A Primary Care Unavailable COOPER JORDAN Referring Unavailable ARSLAN, ROVERTO A Primary Care Unavailable WANSTEPHANIE, SUSAN A Attending Unavailable SUSAN MACDONALD A Admitting Unavailable ARSLAN, ROVERTO A Primary Care Unavailable Knoble MOBILITY ENGINEER.HOME VISITOR HOME BASE HEAD START, Cooper Unavailable Sallie Bustamante PA-C Unavailable Dharmesh CERDA, Dr. Fuentes Primary Care Provider Dharmesh CERDA, Dr. Fuentes Referring Provider [phone] Alec CERDA, Dr. Hernandez Attending Provider Cecilia ALVARENGA, Dr. Dial Attending Provider Cecilia ALVARENGA, Dr. Dial Emergency Provider Moody ALVARENGA, Dr. Pina Attending Provider Moody ALVARENGA, Dr. Pina Emergency Provider Keith CERDA, Dr. Mcmanus Attending Provider Keith CERDA, Dr. Mcmanus Referring Provider Humberto ALVARENGA, Dr. Rodriguez Attending Provider Humberto ALVARENGA, Dr. Rodriguez Referring Provider Oriana MOBILITY ENGINEER.HOME VISITOR HOME BASE HEAD START, Cooper Unavailable Alec, Lamar Attending Unavailable Bursley, Alfredo Primary Care Unavailable Bursley, Alfredo Referring Unavailable Elias, Britney Attending Unavailable Elias, Britney Referring Unavailable Bursley, Alfredo Primary Care Unavailable Bursley, Alfredo Primary Care Unavailable Yovani Uriostegui Attending Unavailable Bursley, Alfredo Primary Care Unavailable Yovani Uriostegui Attending Unavailable Jayro Brooks Attending Unavailable Bursley, Alfredo Primary Care Unavailable Bursley, Alfredo Primary Care Unavailable Alec, David Attending Unavailable Alec, Lamar Referring Unavailable Marietta Lugo Attending Unavailable Marietta Lugo Referring Unavailable Bursley, Alfredo Primary Care Unavailable Marietta Lugo Attending Unavailable Marietta Lugo Referring Unavailable Bursley, Alfredo Primary Care Unavailable Bursley, Alfredo Primary Care Unavailable Wiswell, Angela Attending Unavailable Wiswell, Angela Referring Unavailable Oriana VYAS.Cooper GRULLON Unavailable Robby GARCIA, Sallie Unavailable YOVANI FRY R Admitting Unavailable LAPMELISSA FUENTESIN R Attending Unavailable ARSLAN, ROVERTO A Primary Care Unavailable Robby GARCIA, Sallie Unavailable ARSLAN, ROVERTO A Primary Care Unavailable TAHMINA DUMONT Referring Unavailable BRITNEY GRIFFIN Attending Unavailable ARSLAN, ROVERTO A Primary Care Unavailable ARSLAN, ROVERTO A Primary Care Unavailable DARLIN LING Attending Unavailable ARSLAN, ROVERTO A Primary Care Unavailable HAURY, STEPHANI Referring Unavailable ARSLAN, ROVERTO A Primary Care Unavailable TAHMINA DUMONT Attending Unavailable ARSLAN, ROVERTO A Primary Care Unavailable DAYANNA AL Referring Unavailable MARIETTA LUGO Attending Unavailable ARSLAN, ROVERTO A Primary Care Unavailable SELF Referring Unavailable ARSLAN, ROVERTO A Primary Care Unavailable BRITNEY GRIFFIN Attending Unavailable HAURY, STEPHANI Referring Unavailable TOPHER MCCORD Attending Unavail able ARSLAN, ROVERTO A Primary Care Unavailable ARSLAN, ROVERTO A Primary Care Unavailable MARIETTA LUGO Attending Unavailable HAURY, STEPHANI Referring Unavailable ARSLAN, ROVERTO A Primary Care Unavailable BRITNEY GRIFFIN Attending Unavailable ARSLAN, ROVERTO A Primary Care Unavailable MARIN, JAMMIE Attending Unavailable ARSLAN, ROVERTO A Primary Care Unavailable WISWELL, ANGELA Referring Unavailable ARSLAN, ROVERTO A Primary Care Unavailable MARIN, JAMMIE Referring Unavailable ARSLAN, ROVERTO A Primary Care Unavailable ARSLAN, ROVERTO A Primary Care Unavailable MARIN, JAMMIE Referring Unavailable ARSLAN, ROVERTO A Primary Care Unavailable BUCK SZYMANSKI Attending Unavailable ARSLAN, ROVERTO A Primary Care Unavailable KURTIS ROTH Attending Unavailable DARRYL RAMIREZ Referring Unavailable ARSLAN, ROVERTO A Primary Care Unavailable BRITNEY GRIFFIN Referring Unavailable ARSLAN, ROVERTO A Primary Care Unavailable ARSLAN, ROVERTO A Primary Care Unavailable HAURY, STEPHANI Referring Unavailable ARSLAN, ROVERTO A Primary Care Unavailable ARSLAN, ROVERTO A Primary Care Unavailable TAHMINA DUMONT Attending Unavailable ARSLAN, ROVERTO A Primary Care Unavailable ARSLAN, ROVERTO A Primary Care Unavailable TAHMINA DUMONT Attending Unavailable ARSLAN, ROVERTO A Primary Care Unavailable MARIN, JAMMIE Referring Unavailable ARSLAN, ROVERTO A Primary Care Unavailable CHRISTOFER AYALA Attending Unavailable ARSLAN, ROVERTO A Primary Care Unavailable [facility] Referring Unavailable ARSLAN, ROVERTO A Primary Care Unavailable ANGI SANTOS Attending Unavailable LINGDARLIN Referring Unavailable ARSLAN, ROVERTO A Primary Care Unavailable LINGDARLIN Referring Unavailable ARSLAN, ROVERTO A Primary Care Unavailable TAHMINA DUMONT Attending Unavailable ARSLAN, ROVERTO A Primary Care Unavailable JULIA, TAHMINA Referring Unavailable ARSLAN, ROVERTO A Primary Care Unavailable JULIA, TAHMINA Referring Unavailable [place] Attending Unavailable ARSLAN, ROVERTO A Primary Care Unavailable MARIETTA LUGO Attending Unavailable ARSLAN, ROVERTO A Primary Care Unavailable MARIETTA LUGO Attending Unavailable TOPHER MCCORD Attending Unavail able ARSLAN, ROVERTO A Primary Care Unavailable ARSLAN, ROVERTO A Primary Care Unavailable ARSLAN, ROVERTO A Primary Care Unavailable MARIETTA LUGO Referring Unavailable ARSLAN, ROVERTO A Primary Care Unavailable HAURY, STEPHANI Referring Unavailable ARSLAN, ROVERTO A Primary Care Unavailable MAURO LOVE Attending Unavailable ARSLAN, ROVERTO A Primary Care Unavailable [facility] Attending Unavailable ARSLAN, ROVERTO A Primary Care Unavailable FELICITY ZULETA Attending Unavailable ARSLAN, ROVERTO A Primary Care Unavailable BRITNEY GRIFFIN Referring Unavailable TOPHER MCCORD Attending Unavail able ARSLAN, ROVERTO A Primary Care Unavailable HAURY, STEPHANI Referring Unavailable ARSLAN, ROVERTO A Primary Care Unavailable BRITNEY GRIFFIN Referring Unavailable [place] Attending Unavailable ARSLAN, ROVERTO A Primary Care Unavailable MARIN, JAMMIE Referring Unavailable HAURY, STEPHANI Attending Unavailable ARSLAN, ROVERTO A Primary Care Unavailable ARSLAN, ROVERTO A Primary Care Unavailable ANGELA PAUL Attending Unavailable ARSLAN, ROVERTO A Primary Care Unavailable WISWELL, ANGELA Referring Unavailable ARSLAN, ROVERTO A Primary Care Unavailable HAURY, STEPHANI Referring Unavailable ARSLAN, ROVERTO A Primary Care Unavailable TAHMINA DUMONT Referring Unavailable TAHMINA DUMONT Attending Unavailable Allergies Allergy Classification Reported Allergen(s) Allergy Type Date of Onset Reaction(s) Facility Cranberry preparation (1 source) Cranberry preparation Drug Allergy 1 Anaphylaxis [facility] Nuts (not including peanuts) (1 source) tree nut, unspecified Food Allergy 2 Rash [facility] Work Phone: Opioid Agonists (2 sources) Morphine Drug Allergy 7 Other (See Comments), Palpitations, Other: See Comments [facility] Unclassified (3 sources) Peanut-Containi ng Drug Products Propensity to adverse reactions to drug 1 Anaphylaxis [facility] (20 sources) morphine; Translations: [morphine] drug allergy 7 Other (See Comments), Palpitations, Tachycardia (finding), Other: See Comments, Weal (disorder) [facility] Work Phone: (4 sources) peanut; Translations: [PEANUTS] drug allergy 7 Swelling [facility] Work Phone: (20 sources) Cranberry preparation; Translations: [cranberry] Drug Allergy 1 Anaphylaxis, Rash [facility] (1 source) [facility] [employer]; Translations: [ANIMALS] allergy to substance 2 [facility] Work Phone: (20 sources) Mold Extract; Translations: [MOLD] Drug Allergy 2 Other: See Comments, Intolerance [facility] Work Phone: (1 source) Morphine Drug Allergy 2 [facility] Work Phone: (1 source) PLANT POLLEN; Translations: [PLANT POLLEN] allergy to substance 2 hay fever [facility] Work Phone: (1 source) DUSTS MITES; Translations: [DUSTS MITES] allergy to substance 2 [facility] Work Phone: (4 sources) tree nut, unspecified Drug Allergy 6 Shortness of Breath [facility] Work Phone: (20 sources) tree nut, unspecified; Translations: [TREE NUTS] Drug Allergy 2 Rash [facility] Work Phone: (20 sources) house dust allergenic extract; Translations: [HOUSE DUST] Drug Allergy 3 [facility] (20 sources) peanut allergenic extract; Translations: [PEANUT] Drug Allergy 3 Swelling [facility] (20 sources) cat dander; Translations: [cat dander] Allergy to substance 3 [facility] (1 source) house dust allergenic extract Drug Allergy 5 [facility] (1 source) peanut allergenic extract Drug Allergy 5 [facility] Medications Current Medications Medication Drug Class(es) Dates Sig (Normalized) Sig (Original) acetaminophen 325 mg / oxyCODONE hydrochloride 5 mg oral tablet (3 sources) Opioid Agonist Start: 09-08-2021 End: 09-11-2021 take 1 tablet by mouth every six hours as needed for pain Percocet 5 mg-325 mg oral tablet Dose = 1 tab(s), Oral, q6h, PRN for pain, X 3 day(s), # 10 tab(s), 0 Refill(s), Ileostomy present, 115.6 Start Date: 09/08/21 Stop Date: 09/11/21 Status: Ordered Start: 06-22-2021 End: 06-24-2021 oxyCODONE-acetaminophen (PER COCET) 5-325 MG per tablet Indications: Perineal pain Take 1 tablet by mouth every 8 hours as needed for Pain for up to 2 days. Intended supply: 3 days. Take lowest dose possible to manage pain 6 tablet 0 06/22/2021 06/24/2021 Active Acidophilus Probiotic Blend oral capsule (1 source) Start: 04-09-2022 take 1 capsule by mouth once daily Acidophilus Probiotic Blend oral capsule Dose = 1 cap(s), Oral, qDay, # 90 cap(s), 0 Refill(s), Pharmacy: [facility]/pharmacy #[id number], 162.6, cm, 04/09/22 13:27:00 EDT, Height Start Date: 04/09/22 Status: Ordered Afrin 0.05% nasal Mist (7 sources) Start: 08-26-2021 Afrin 0.05% nasal Mist Dose = 2 spray(s), Intranasal, BID, # 30 mL, 0 Refill(s) Start Date: 08/26/21 Status: Ordered albuterol MDI (90 mcg/inh) [facility] free inhalation aerosol (9 sources) Start: 08-08-2021 take 1 puff(s) by inhalation once as needed for wheezing albuterol MDI (90 mcg/inh) [facility]FC free inhalation aerosol 1 puff(s), Inhalation, Once, PRN as needed for wheezing, # 18 gram(s), 0 Refill(s) Start Date: 08/08/21 Status: Ordered amoxicillin 875 mg / clavulanate 125 mg oral tablet (10 sources) Penicillin-class Antibacterial Start: 06-25-2024 End: 07-02-2024 take 1 tablet by mouth twice daily amoxicillin-clavu lanate potassium (AUGMENTIN) 875-125 mg per tablet Indications: Acute effusion of right ear , Bacterial sinusitis Take 1 tablet by mouth two times a day for 7 days. 14 tablet 06/25/2024 07/02/2024 Active Start: 02-02-2024 End: 02-09-2024 take 1 tablet by mouth twice daily amoxicillin-clavulanate potassium (AUGMENTIN) 875-125 mg per tablet Take 1 tablet by mouth two times a day for 7 days. 14 tablet 0 02/02/2024 02/09/2024 Active Start: 01-28-2012 take 1 tablet by [facility] twice daily AUGMENTIN 875-125 MG TABS One tablet by mouth twice daily AMOXICILLIN-POT CLAVULANATE [id number] Maria Esther Grover MD Start: 01-28-2012 End: 02-27-2012 take 1 tablet by mouth twice daily AUGMENTIN 875-125 MG TABS One tablet by mouth twice daily AMOXICILLIN-POT CLAVULANATE [id number] Maria Esther Grover MD cephalexin 500 mg oral capsule (3 sources) Cephalosporin Antibacterial Start: 10-12-2024 End: 10-19-2024 take 1 capsule by mouth four times daily cephALEXin (KEFLEX) 500 mg capsule Indications: Facial cellulitis Take 1 capsule by mouth four times daily for 7 days. 28 capsule 10/12/2024 10/19/2024 Active Start: 03-10-2023 End: 03-17-2023 take 1 capsule by mouth twice daily cephALEXin (KEFLEX) 500 mg capsule Take 1 capsule by mouth twice daily for 7 days. 14 capsule 0 03/10/2023 03/17/2023 Comment on above: Take [address] [facility] twice daily for 7 days. cetirizine hydrochloride 10 mg oral tablet (11 sources) Histamine-1 Receptor Antagonist Start: 019 End: cetirizine 10 mg oral tablet Dose : 10 mg = 1 tab(s), Oral, qDay, # 30 tab(s), 0 Refill(s) Start Date: 08/08/21 Status: Ordered Comment on above: Take 1 tablet by [facility] once daily. ciprofloxacin 750 mg oral tablet (2 sources) Quinolone Antimicrobial Start: End: ciprofloxacin 750 mg oral tablet Dose : 750 mg = 1 tab(s), Oral, q12h, X 14 day(s), # 28 tab(s), 0 Refill(s), 09/12/21 16:44:00 EST, Pharmacy: [facility]/pharmacy #[id number], 162.6, cm, 08/26/21 9:36:00 EST, Height, 114.4, kg, 08/26/21 9:36:00 EST, Dosing Weight Start Date: 08/29/21 Stop Date: 09/12/21 Status: Ordered 0.4 ml enoxaparin sodium 100 mg/ml prefilled syringe (2 sources) Low Molecular Weight Heparin Start: 025 End: inject 40 mg by subcutaneous injection every twelve hours enoxaparin (LOVENOX) 40 mg/0.4 mL Inject 0.4 mL subcutaneously every 12 hours. 33.6 mL 03/24/2025 3:20 PM EDT 03/24/2025 05/05/2025 Active enteric contrast (will be provided with radiology test) (3 sources) Start: End: enteric contrast (will be provided with radiology test) For CT ABD/PEL W IVCON Routine order Administer, As Directed One Time Only, via Oral, Rectal, both Oral and Rectal, Enteric Tube, Stoma or Indwelling Catheter, Enteric Contrast as designated per enteric contrast guidelines 1 Each 0 08/05/2023 08/06/2023 Active Start: 12-02-2022 End: 12-03-2022 enteric contrast (will be pr ovided with radiology test) For CT ABD W IVCON order Administer, As Directed One Time Only, via Oral, Rectal, both Oral and Rectal, Enteric Tube, Stoma or Indwelling Catheter, Enteric Contrast as designated per enteric contrast guidelines 1 Each 0 12/02/2022 12/03/2022 Comment on above: For CT ABD W IVCON o rder Administer, As Directed One Time Only, via Oral, Rectal, both Oral and Rectal, Enteric Tube, Stoma or Indwelling Catheter, Enteric Contrast as designated per enteric contrast guidelines For CT ABD/PEL W IVC ON Routine order Administer, As Directed One Time Only, via Oral, Rectal, both Oral and Rectal, Enteric Tube, Stoma or Indwelling Catheter, Enteric Contrast as designated per enteric contrast guidelines escitalopram 10 mg oral tablet (5 sources) Serotonin Reuptake Inhibitor Start: 1 Lexapro 10 mg oral tablet Dose : 10 mg = 1 tab(s), Oral, qHS, # 30 tab(s), 3 Refill(s), Pharmacy: [facility]/pharmacy #[id number], 162.6, cm, 08/29/21 21:58:00 EST, Height, kg, 08/29/21 21:58:00 EST, Dosing Weight Start Date: 09/03/21 Status: Ordered fluconazole 150 mg oral tablet (7 sources) Azole Antifungal Start: 5 End: 5 take 1 tablet by mouth once fluconazole (DIFLUCAN) 150 mg tablet Take 1 tablet by mouth one time only for 1 dose. 1 tablet 01/23/2025 01/23/2025 Active Start: 12-06-2023 End: 12-06-2023 take 1 tablet by mouth once fluconazole (DIFLUCAN) 150 mg tablet Indications: Vaginal discharge Take 1 tablet by mouth one time only for 1 dose. 1 tablet 0 12/06/2023 12/06/2023 Active Start: 04-09-2022 End: 04-09-2023 fluconazole (DIFLUCAN) 150 m g tablet Take 1 tablet by mouth one time only for 1 dose. Repeat 48 hours later, after keflex is completed. 2 tablet 0 03/12/2023 03/12/2023 Start: 09-19-2021 End: 09-26-2021 fluconazole 150 mg oral tabl et Dose : 150 mg = 1 tab(s), Oral, Daily, # 7 tab(s), 0 Refill(s), Pharmacy: [facility]/pharmacy #[id number], 162.6, cm, 09/19/21 11:12:00 EST, Height, 110.7, kg, 09/19/21 11:12:00 EST, Dosing Weight Start Date: 09/19/21 Stop Date: 09/26/21 Status: Ordered Comment on above: Take 1 tablet by wai th one time only for 1 dose. Take 1 tablet by wai th one time only for 1 dose. Repeat 48 hours later, after keflex is completed. fluticasone propionate 0.05 mg/actuat metered dose nasal spray (18 sources) Corticosteroid Start: 4 End: take 2 spray(s) by mouth once daily fluticasone (FLONASE) 50 mcg/actuation nasal spray Indications: ETD (Eustachian tube dysfunction), right Use 2 Sprays in each nostril once daily. Rinse mouth after use. 1 Each 1 01/27/2024 05/02/2024 Discontinued Start: 05-24-2019 End: 04-24-2022 take 2 spray(s) by mouth once daily fluticasone (FLONASE) 50 mcg/actuation nasal spray Indications: Acute seasonal allergic rhinitis Use 2 Sprays in each nostril once daily. Rinse mouth after use. 1 Each 1 08/06/2021 04/24/2022 Discontinued (Course of therapy completed) Start: 03-02-2012 End: 06-25-2012 take 2 spray(s) nasal route twice daily FLONASE 50 MCG/ACT SUSP 2 spray/nostril twice daily FLUTICASONE PROPIONATE [id number] Maria Esther Grover MD Start: 03-02-2012 take 2 spray(s) nasa l route twice daily FLONASE 50 MCG/ACT SUSP 2 spray/nostril twice daily FLUTICASONE PROPIONATE [id number] Maria Esther Grover MD Start: 01-28-2012 take 2 spray(s) nasa l route once daily FLONASE 50 MCG/ACT SUSP 2 spray/nostril daily FLUTICASONE PROPIONATE [id number] Maria Esther Grover MD Comment on above: Use 2 Sprays in each nostril once daily. Rinse mouth after use. fluticasone proprionate NASAL 50 mcg/ spray (9 sources) Start: 08-08-20 take 1 dose nasal route once daily in the morning fluticasone proprionate NASAL 50 mcg/ spray Dose = 1 spray(s), Nostril, each, qAM, 0 Refill(s) Start Date: 08/08/21 Status: Ordered hydrOXYzine hydrochloride 25 mg oral tablet (7 sources) Antihistamine Start: 07-02-20 End: 07-09-20 take 1 tablet by mouth every six hours as needed hydrOXYzine HCl (ATARAX) 25 mg tablet Take 1 tablet by mouth every 6 hours as needed for up to 7 days. 20 tablet 0 07/02/2022 07/09/2022 Active Start: 08-29-2021 Vistaril 50 mg oral capsule Dose : 50 mg = 1 cap(s), Oral, QID, PRN as needed for anxiety, # 40 cap(s), 0 Refill(s), Pharmacy: [facility]/pharmacy #[id number], 162.6, cm, 08/26/21 9:36:00 EST, Height, kg, 08/26/21 9:36:00 EST, Dosing Weight Start Date: 08/29/21 Status: Ordered Comment on above: Take 1 tablet by wai th every 6 hours as needed for up to 7 days. 3 ml insulin isophane, human 100 unt/ml pen injector (14 sources) Start: inject 12 [IU] by subcutaneous injection in the evening, then inject 14 [IU] by subcutaneous injection in the morning insulin NPH subcutaneous pen Indications: Insulin controlled gestational diabetes mellitus (GDM) in third trimester (HCC) Inject 12units in evening and 14units in morning 02/28/2025 Active Start: 02-16-2025 End: 05-02-2025 insulin NPH subcutaneous pen Indications: Insulin controlled gestational diabetes mellitus (GDM) in third trimester (HCC) Inject 12 Units subcutaneously two times a day at 6 am and 9 pm. 9 mL 1 02/16/2025 05/02/2025 Active Iron (2 sources) Start: 09-28-2024 take 1 capsule by mouth once daily Pnv 425-Vtwb-Czmino-Dha 90 mg iron- 1 mg-200 mg capsule Active 1 NMA PO daily September 28, 2024 1:00am iv contrast (will be provided with radiology test) (5 sources) Start: 06-28-2024 End: 06-29-2024 iv contrast (will be provide d with radiology test) Indications: Discharge from both nipples , Fibrocystic breast changes of both breasts , Family history of breast cancer MRI Breast HERMAN Inject, intravenously, once for 1 dose. No IV access, insert saline lock prior to the beginning of sedation, infusion, injection of imaging exam. Discontinue saline lock post exam. If Pt has a central line or IVAD, may access for administration according to line specific nursing protocol. Once exam is complete flush line and de-access according to line specific nursing protocol in the MR contrast administration guidelines link 1 Each 06/28/2024 06/29/2024 Active Start: 08-24-2023 End: 08-25-2023 iv contrast (will be provide d with radiology test) Indications: Liver lesion MRI Liver Inject, intravenously, once for 1 dose. No IV access, insert saline lock prior to the beginning of sedation, infusion, injection of imaging exam. Discontinue saline lock post exam. If Pt. has a central line or IVAD, may access for administration according to line specific nursing protocol. Once exam is complete flush line and de-access according to line specific nursing protocol in the MR contrast administration guidelines link. 1 Each 0 08/24/2023 08/25/2023 Start: 08-05-2023 End: 08-06-2023 iv contrast (will be provide d with radiology test) CT ABD/PEL -Inject, intravenously, once for 1 dose.No IV access, insert saline lock prior to the beginning of sedation, infusion, injection of imaging exam. Discontinue saline lock post exam. If Pt. has a central line or IVAD, may access for administration according to line specific nursing protocol. Once exam is complete flush line and de-access according to line specific nursing protocol in the CT contrast administration guidelines link. 1 Each 0 08/05/2023 08/06/2023 Active Start: 12-02-2022 End: 12-03-2022 iv contrast (will be provide d with radiology test) CT ABD W -Inject, intravenously, once for 1 dose.No IV access, insert saline lock prior to the beginning of sedation, infusion, injection of imaging exam. Discontinue saline lock post exam. If Pt. has a central line or IVAD, may access for administration according to line specific nursing protocol. Once exam is complete flush line and de-access according to line specific nursing protocol in the CT contrast administration guidelines link. 1 Each 0 12/02/2022 12/03/2022 Comment on above: CT ABD W -Inject, in travenously, once for 1 dose.No IV access, insert saline lock prior to the beginning of sedation, infusion, injection of imaging exam. Discontinue saline lock post exam. If Pt. has a central line or IVAD, may access for administration according to line specific nursing protocol. Once exam is complete flush line and de-access according to line specific nursing protocol in the CT contrast administration guidelines link. CT ABD/PEL -Inject, intravenously, once for 1 dose.No IV access, insert saline lock prior to the beginning of sedation, infusion, injection of imaging exam. Discontinue saline lock post exam. If Pt. has a central line or IVAD, may access for administration according to line specific nursing protocol. Once exam is complete flush line and de-access according to line specific nursing protocol in the CT contrast administration guidelines link. MRI Liver Inject, in travenously, once for 1 dose. No IV access, insert saline lock prior to the beginning of sedation, infusion, injection of imaging exam. Discontinue saline lock post exam. If Pt. has a central line or IVAD, may access for administration according to line specific nursing protocol. Once exam is complete flush line and de-access according to line specific nursing protocol in the MR contrast administration guidelines link. lactobacillus acidophilus [id number] unt oral capsule (2 sources) Start: 08-08-20 take 1 capsule by mouth once daily Florajen Acidophilus oral capsule Dose = 1 cap(s), Oral, qDay, 0 Refill(s) Start Date: 08/08/21 Status: Ordered Start: 08-05-2021 End: 04-24-2022 take 1 capsule by mouth once daily Lactobacillus acidophilus (FLORAJEN ACIDOPHILUS) 20 billion cell cap Indications: History of Clostridium difficile infection , Diarrhea, unspecified type Take 1 capsule by mouth once daily. 30 capsule 3 08/05/2021 04/24/2022 Discontinued (Course of therapy completed) Comment on above: Take [address] [facility] once daily. lanolin 1000 mg/ml topical cream (1 source) Start: 05-16-20 Topical, PRN, Dry Skin, Starting on Ana 05/16/21 at 0946 levonorgestrel 1.5 mg oral tablet (20 sources) Progestin, Progestin-containing Intrauterine Device Start: 12-27-19 End: 12-27-19 take 1 tablet by mouth once levonorgestrel (PLAN B ONE-STEP) 1.5 mg tab Take 1 tablet by mouth one time only for 1 dose. 1 tablet 0 12/27/2023 12/27/2023 Active Start: 11-27-2021 Mirena 52 mg i ntrauterine device Dose : 52 mg = 1 EA, Intrauterine, Once, 0 Refill(s) Start Date: 11/27/21 Status: Ordered Start: 11-27-2021 End: 09-23-2023 levonorgestrel (MIRENA INTRA UTERINE) by INTRAUTERINE route. 11/27/2021 09/23/2023 Discontinued (Course of therapy completed) Start: 11-27-2021 levonorgestrel (MIRENA INTRAUTERINE) by INTRAUTERINE route. 0 11/27/2021 Active Comment on above: by INTRAUTERINE rout e. Take 1 tablet by [facility] one time only for 1 dose. loperamide hydrochloride 2 mg oral capsule (6 sources) Opioid Agonist Start: 01-10-2022 End: 03-11-2022 Imodium 2 mg oral capsule Dose : 2 mg = 1 cap(s), Oral, q4h, X 30 day(s), # 180 cap(s), 1 Refill(s), 03/11/22 11:32:00 EDT, Pharmacy: [facility]/pharmacy #[id number], 162.6, cm, 01/10/22 11:04:00 EDT, Height Start Date: 01/10/22 Stop Date: 03/11/22 Status: Ordered Start: 11-22-2021 End: 12-07-2021 loperamide 2 mg oral capsule Dose : 2 mg = 1 cap(s), Oral, q4h, PRN for loose stools, # 60 cap(s), 0 Refill(s), 12/07/21 9:05:00 EST, Pharmacy: [facility]/pharmacy #[id number], 162.6, cm, 11/13/21 12:20:00 EST, Height, kg, 11/13/21 12:20:00 EST, Dosing Weight Start Date: 11/22/21 Stop Date: 12/07/21 Status: Ordered Start: 11-13-2021 take 1 tablet by wai th once as needed, then take 1 tablet by mouth every four hours as needed Imodium A-D 2 mg oral tablet Dose : 2 mg = 1 tab(s), Oral, q4h, PRN for loose stool, # 60 tab(s), 0 Refill(s) Start Date: 11/13/21 Status: Ordered Start: 09-19-2021 loperamide 2 m g oral capsule Dose : 4 mg = 2 cap(s), Oral, TID, PRN for loose stool, # 180 cap(s), 0 Refill(s), Pharmacy: [facility]/pharmacy #[id number], 162.6, cm, 09/19/21 11:12:00 EST, Height, kg, 09/19/21 11:12:00 EST, Dosing Weight Start Date: 09/19/21 Status: Ordered Mirena 52 mg intrauterine device (3 sources) Start: 11-27-2021 Mirena 52 mg intrauterine device Dose : 52 mg = 1 EA, Intrauterine, Once, 0 Refill(s) Start Date: 11/27/21 Status: Ordered Mounjaro 5 mg/0.5 mL subcutaneous solution (7 sources) Start: 07-16-2022 inject 1 dose by subcutaneous injection every week Mounjaro 5 mg/0.5 mL subcutaneous solution Dose : 10 mg =, Subcutaneous, qWeek, rotate injection sites, # 4 EA, 0 Refill(s) Start Date: 07/16/22 Status: Ordered Start: 07-16-2022 inject 1 dose by sub cutaneous injection every week Mounjaro 5 mg/0.5 mL subcutaneous solution Dose : 5 mg =, Subcutaneous, qWeek, rotate injection sites, # 4 EA, 0 Refill(s) Start Date: 07/16/22 Status: Ordered mupirocin 0.02 mg/mg topical ointment (2 sources) RNA Synthetase Inhibitor Antibacterial Start: 09-24-2022 mupirocin 2% topical ointment Apply 1 jessica, Topical, BID, Bilateral intranasal application twice daily for 5 days prior to surgery &/or as many days leading up to surgery as possible due to surgical urgency/scheduling. Send to patient's preferred pharmacy., Apply to: nostril, each,... Start Date: 09/24/22 Status: Ordered nystatin 100 unt/mg topical powder (8 sources) Polyene Antifungal Start: 06-08-2023 End: 07-08-2023 nystatin (MYCOSTATIN) powder Indications: Class 3 severe obesity without serious comorbidity with body mass index (BMI) of 45.0 to 49.9 in adult, unspecified obesity type (HCC) , Candidal intertrigo Apply 1 application to affected area four times daily. 60 g 2 06/08/2023 07/08/2023 Active Comment on above: Apply 1 application to affected area four times daily. nystatin 100,000 units/g topical cream (2 sources) Start: 09-12-2021 nystatin 100,0 00 units/g topical cream Apply 1 jessica, Topical, BID, # 30 gram(s), 0 Refill(s), Pharmacy: [facility]/pharmacy #[id number], Cream, 162.6, cm, 09/08/21 13:45:00 EST, Height, 115.6, kg, 09/08/21 13:45:00 EST, Dosing Weight Start Date: 09/12/21 Status: Ordered ondansetron (ZOFRAN-ODT) disintegrating tablet 4 mg (1 source) Start: 05-16-2021 ondansetron (Z OFRAN-ODT) disintegrating tablet 4 mg ondansetron 4 mg oral tablet, disintegrating (5 sources) Start: 09-03-2021 ondansetron 4 mg oral tablet, disintegrating Dose : 4 mg = 1 tab(s), Oral, q6h, PRN Nausea/Vomiting, # 20 tab(s), 0 Refill(s), [id number], 162.6, cm, 08/29/21 21:58:00 EST, Height, kg, 08/29/21 21:58:00 EST, Dosing Weight Start Date: 09/03/21 Status: Ordered oxyCODONE hydrochloride 5 mg oral tablet (11 sources) Opioid Agonist Start: 10-01-2022 End: 10-06-2022 oxyCODONE 5 mg oral tablet ( IMMEDIATE release ) Dose : 5 mg = 1 tab(s), Oral, q4h, PRN as needed for pain, ok to take 1-2 pills, X 5 day(s), # 30 tab(s), 0 Refill(s), 10/06/22 14:26:00 EST, [id number], Post-op pain, 162.6, cm, 10/01/22 9:34:00 EST, Height, 115.4 Start Date: 10/01/22 Stop Date: 10/06/22 Status: Ordered Start: 02-14-2022 End: 02-21-2022 oxyCODONE 5 mg oral tablet ( IMMEDIATE release ) Dose : 5 mg = 1 tab(s), Oral, q6h, PRN for pain, X 7 day(s), # 28 tab(s), 0 Refill(s), 02/21/22 14:48:00 EDT, [id number], Post-op pain, 162.6, cm, 02/10/22 20:53:00 EDT, Height, 118.8 Start Date: 02/14/22 Stop Date: 02/21/22 Status: Ordered Start: 08-28-2021 End: 09-10-2021 oxyCODONE 5 mg oral tablet ( IMMEDIATE release ) Dose : 5 mg = 1 tab(s), Oral, q6h, X 7 day(s), # 28 tab(s), 0 Refill(s), 09/10/21 11:25:00 EST, [id number], Post-op pain, 162.6, cm, 08/29/21 21:58:00 EST, Height, 118.2, kg, 08/29/21 21:58:00 EST, Dosing Weight Start Date: 09/03/21 Stop Date: 09/10/21 Status: Ordered Start: 05-18-2021 End: 05-17-2021 take 1 tablet by mouth every four hours as needed for pain oxyCODONE (ROXICODONE) 5 MG immediate release tablet Indications: Rectovaginal fistula Take 1 tablet by mouth every 4 hours as needed for Pain for up to 7 days. 15 tablet 0 05/18/2021 05/17/2021 Discontinued Start: 05-16-2021 oxyCODONE (NATE ICODONE) immediate release tablet 5 mg Start: 05-14-2021 End: 05-25-2021 take 1 tablet by mouth every four hours as needed for pain oxyCODONE (ROXICODONE) 5 MG immediate release tablet Indications: Rectovaginal fistula Take 1 tablet by mouth every 4 hours as needed for Pain for up to 7 days. 15 tablet 0 05/18/2021 05/25/2021 Active phenol 14 mg/ml mouthwash (1 source) Start: 05-16-2021 phenol 1.4 % mouth spray 1 spray phentermine hydrochloride 37.5 mg oral capsule (20 sources) Sympathomimetic Amine Anorectic Start: 05-30-2025 End: 08-28-2025 take 45-49.9 capsules by mouth once daily before breakfast Phentermine HCl 37.5 mg capsule Indications: Class 3 severe obesity without serious comorbidity with body mass index (BMI) of 45.0 to 49.9 in adult, unspecified obesity type (HCC) Take 1 capsule by mouth daily before breakfast for 90 days. 30 capsule 2 05/30/2025 08/28/2025 Active Start: 11-18-2023 End: 02-16-2024 take 45-49.9 capsules by mouth once daily before breakfast Phentermine HCl 37.5 mg capsule Indications: Class 3 severe obesity without serious comorbidity with body mass index (BMI) of 45.0 to 49.9 in adult, unspecified obesity type (HCC) Take 1 capsule by mouth daily before breakfast for 90 days. 30 capsule 2 11/18/2023 02/16/2024 Discontinued Start: 04-30-2023 Phentermine Ac tive MG April 30, 2023 12:00am Start: 12-16-2022 phentermine 37 .5 mg oral capsule See Instructions, 1/2 cap(s) Oral Daily, 0 Refill(s), 117 Start Date: 12/16/22 Status: Ordered Start: 10-29-2022 End: 08-05-2024 take 1 tablet by mouth once daily Phentermine 37.5 mg tablet Discontinued 37.5 mg PO DAILY April 30, 2023 12:00am August 05, 2024 9:18am Comment on above: Take 1 tablet by wai once daily. Take 1 tablet by wai th once daily for 30 days. Take 1 tablet by wai th once daily for 90 days. BMI 40.74 Take 37.5 mg by [facility] daily before breakfast. Take [address] [facility] daily before breakfast for 90 days. phenylephrine hydrochloride 25 mg/ml ophthalmic solution (1 source) alpha-1 Adrenergic Agonist Start: 12-17-2022 End: 12-18-2022 PHENYLephrine 2.5 % 1 Drop (AK-DILATE, GORDO-SYNEPHRINE) Polyethylene Glycols (1 source) Polyethylene Gly col 3350 (MIRALAX PO) Take by mouth 0 Active predniSONE 10 mg oral tablet (4 sources) Start: 01-27-2024 End: 02-05-2024 predniSONE (DELTASONE) 10 mg tablet Indications: ETD (Eustachian tube dysfunction), right Take 4 tabs daily for 3 days, then 2 tabs daily for 3 days, then 1 tab daily for 3 days with food. 21 tablet 0 01/27/2024 02/05/2024 Active Start: 12-10-2022 End: 12-15-2022 take 2 tablets by mouth once daily predniSONE (DELTASONE) 20 mg tablet Take 2 tablets by mouth once daily for 5 days. 10 tablet 0 12/10/2022 12/15/2022 Active Start: 06-23-2022 End: 06-28-2022 take 4 tablets by mouth once daily predniSONE (DELTASONE) 10 mg tablet Take 4 tablets by mouth once daily for 5 days. 20 tablet 0 06/23/2022 06/28/2022 Active Comment on above: Take 4 tablets by mo ut once daily for 5 days. Take 2 tablets by mo uth once daily for 5 days. Take 4 tabs daily fo r 3 days, then 2 tabs daily for 3 days, then 1 tab daily for 3 days with food. proparacaine hydrochloride 5 mg/ml ophthalmic solution (1 source) Local Anesthetic Start: End: proparacaine 0.5 % 1 Drop (ALCAINE) Senna Leaves (6 sources) Start: senna 8.6 mg oral tablet Dose : 17.2 mg = 2 tab(s), Oral, qHS, # 20 tab(s), 0 Refill(s), Pharmacy: [facility]/pharmacy #[id number], 162.6, cm, 08/26/21 9:36:00 EST, Height, kg, 08/26/21 9:36:00 EST, Dosing Weight Start Date: 08/28/21 Status: Ordered 3 ml sodium chloride 9 mg/ml injection (4 sources) Start: take 1 dose intravenously twice daily 5-40 mL, Intravenous, EVERY 12 HOURS SCHEDULED (2 times per day), First dose on Ana 05/16/21 at 2100 For Line Patency: Peripheral IV = 5 mL; Midline or Central Line = 10 mL/lumen. &nbs p;If following IV push medication, administer flush at same rate as the IV push. Flush volume is determined by type of infusion therapy being given. F or non-viscous solutions use: Periphera l IV = 5 mL Midline or Central Line = 10 mL/lumen &nbsp ;For viscous solutions (i.e. blood components, parenteral nutrition, contrast media, or after obtaining blood sample) use: Periphera l IV = 10 mL Midline or Central Line = 20 mL/lumen Post-op Start: 05-16-2021 take 25 mL intraveno usly every hour as needed 25 mL, Intravenous, at 100 mL/hr, PRN, If patient receiving piggyback infusions without ordered maintenance IV fluids or with frequent/long duration piggyback infusions, Starting on Ana 05/16/21 at 1208 Administer at the same rate as the piggyback being infused. Post-op Start: 08-05-2021 take 5-40 mL intravenously onc e 5-40 mL, Intravenous, PRN, Line Care, Starting on Ana 05/16/21 at 1208 After every IV line use Post-op Start: 05-16-2021 End: 05-16-2021 Intravenous, at 100 mL/hr, CONTINUOUS, Starting on Ana 05/16/21 at 1015, For 6 hours sodium chloride flush 0.9 % injection 3 mL (2 sources) Start: 06-22-2021 sodium chlorid e flush 0.9 % injection 3 mL Start: 06-09-2021 sodium chlorid e flush 0.9 % injection 3 mL sulfamethoxazole 800 mg / trimethoprim 160 mg oral tablet (2 sources) Dihydrofolate Reductase Inhibitor Antibacterial, Sulfonamide Antimicrobial Start: 04-18-2023 End: 04-23-2023 take 1 tablet by mouth twice daily sulfamethoxazole-trimethoprim (BACTRIM DS) 800-160 mg per tablet Take 1 tablet by mouth twice daily for 5 days. 10 tablet 0 04/18/2023 04/23/2023 Active Start: 09-19-2021 End: 09-26-2021 take 1 tablet by mouth twice daily Bactrim DS 800 mg-160 mg oral tablet Dose = 1 tab(s), Oral, BID, X 7 day(s), # 14 tab(s), 0 Refill(s), Pharmacy: [facility]/pharmacy #[id number], 162.6, cm, 09/19/21 11:12:00 EST, Height, 110.7, kg, 09/19/21 11:12:00 EST, Dosing Weight Start Date: 09/19/21 Stop Date: 09/26/21 Status: Ordered Comment on above: Take 1 tablet by wai twice daily for 5 days. SUMAtriptan 100 mg oral tablet (11 sources) Serotonin-1b and Serotonin-1d Receptor Agonist Start: 023 End: 024 take 1 tablet by mouth every two hours as needed for headache SUMAtriptan (IMITREX) 100 mg tablet Take 1 tablet by mouth as needed for migraine headache (see administration instructions) (at onset of headache. May repeat after 2 hours.). 9 tablet 5 06/09/2023 12/06/2023 Active Comment on above: Take 1 tablet by wai th as needed for migraine headache (see administration instructions) (at onset of headache. May repeat after 2 hours.). tirzepatide (MOUNJARO) 12.5 mg/0.5 mL pen injector (15 sources) Start: 023 End: 023 inject 12.5 mg by subcutaneous injection every week tirzepatide (MOUNJARO) 12.5 mg/0.5 mL pen injector Inject 12.5 mg subcutaneously one time a week. 2 mL 2 06/08/2023 09/06/2023 Active Start: 09-29-2022 End: 10-29-2022 inject 12.5 mg by subcutaneous injection every week tirzepatide (MOUNJARO) 12.5 mg/0.5 mL pen injector Inject 12.5 mg subcutaneously one time a week. 2 mL 2 09/29/2022 10/29/2022 Discontinued Start: 09-29-2022 End: 12-28-2022 inject 12.5 mg by subcutaneous injection every week tirzepatide (MOUNJARO) 12.5 mg/0.5 mL pen injector Inject 12.5 mg subcutaneously one time a week. 2 mL 2 09/29/2022 12/28/2022 Active Comment on above: Inject 12.5 mg subcu taneously one time a week. tirzepatide (MOUNJARO) 2.5 mg/0.5 mL pen injector (5 sources) Start: 022 End: 022 inject 2.5 mg by subcutaneous injection every week tirzepatide (MOUNJARO) 2.5 mg/0.5 mL pen injector Inject 2.5 mg subcutaneously one time a week. 2 mL 0 06/18/2022 07/07/2022 Discontinued (Dosage adjustment) Start: 06-18-2022 inject 2.5 mg by sub cutaneous injection every week tirzepatide (MOUNJARO) 2.5 mg/0.5 mL pen injector Inject 2.5 mg subcutaneously one time a week. 2 mL 0 06/18/2022 Active Start: 06-18-2022 End: 06-18-2022 inject 2.5 mg by subcutaneous injection every week tirzepatide (MOUNJARO) 2.5 mg/0.5 mL pen injector Inject 2.5 mg subcutaneously one time a week. 2 mL 0 06/18/2022 06/18/2022 Discontinued Comment on above: Inject 2.5 mg subcut aneously one time a week. tropicamide 10 mg/ml ophthalmic solution (1 source) Anticholinergic Start: 12-17-2022 End: 12-18-2022 tropicamide 1 % 1 Drop (MYDRIACYL) Completed/Discontinued Medications Medication Drug Class(es) Dates Sig (Normalized) Sig (Original) acetaminophen 500 mg oral tablet (11 sources) Start: 03-24-2025 End: 05-08-2025 take 2 tablets by mouth every six hours as needed acetaminophen (TYLENOL) 500 mg tablet Take 2 tablets by mouth every 6 hours as needed for pain. 50 tablet 1 03/24/2025 3:20 PM EDT 03/24/2025 05/08/2025 Discontinued (Other) Start: 08-28-2021 acetaminophen 325 mg oral capsule Dose : 650 mg = 2 cap(s), Oral, q4h, # 90 cap(s), 0 Refill(s), Pharmacy: [facility]/pharmacy #[id number], 162.6, cm, 08/26/21 9:36:00 EST, Height, kg, 08/26/21 9:36:00 EST, Dosing Weight Start Date: 08/28/21 Status: Ordered Start: 05-16-2021 take 650 mg by mouth every six hours, then take 4000 mg by mouth every twenty-four hours 650 mg, Oral, EVERY 6 HOURS, First dose on Ana 05/16/21 at 1230 Maximum dose of acetaminophen is 4000 mg from all sources in 24 hours. Post-op Start: 05-16-2021 End: 05-16-2021 acetaminophen (TYLENOL) tabl et 1,000 mg acetaminophen 325 mg / HYDROcodone bitartrate 5 mg oral tablet (10 sources) Opioid Agonist Start: 03-04-2024 End: 09-28-2024 Hydrocodone-Acetaminophen 5- 325 mg tablet Discontinued 1 {tbl} PO EVERY 6 HOURS NEEDED as needed for Pain 6 March 04, 2024 September 28, 2024 3:55pm Start: 01-30-2017 End: 01-30-2017 Hydrocodone-Acetaminophen 1 TABLET tablet Discontinued 1 {tbl} PO EVERY 6 HOURS NEEDED as needed for Pain January 30, 2017 12:00am January 30, 2017 8:41am Start: 01-30-2017 End: 01-30-2017 take 1 tablet by mouth every six hours as needed Hydrocodone-Acetaminophen Discontinued 1 TABLET PO EVERY 6 HOURS NEEDED January 29, 2017 11:00pm January 30, 2017 7:41am [id number] actuat albuterol 0.09 mg/actuat metered dose inhaler (15 sources) beta2-Adrenergic Agonist Start: 12-10-2022 take 2 puff(s) by inhalation every six hours as needed albuterol HFA (PROAIR HFA) 90 mcg/actuation inhaler Inhale 2 Puffs as instructed every 6 hours as needed. 1 Each 0 12/10/2022 Active Start: 08-04-2019 End: 04-24-2022 take 2 puff(s) by inhalation every four hours as needed for wheezing albuterol HFA (VENTOLIN HFA) 90 mcg/actuation inhaler Indications: Acute seasonal allergic rhinitis , Wheezing Inhale 2 Puffs as instructed every 4 hours as needed for wheezing/shortness of breath. 1 Each 1 08/06/2021 04/24/2022 Discontinued (Course of therapy completed) Start: 01-28-2012 End: 06-25-2012 PROVENTIL HFA 108 (90 Base) MCG/ACT AERS 2 puff every 4hr as needed dyspnea ALBUTEROL SULFATE [id number] Maira Esther Grover MD Start: 01-28-2012 PROVENTIL HFA 108 (90 Base) MCG/ACT AERS 2 puff every 4hr as needed dyspnea ALBUTEROL SULFATE [id number] Maria Esther Grover MD End: 09-15-2024 albuterol HFA (PROAIR HFA) 9 0 mcg/actuation inhaler Inhale 2 Puffs as instructed. 09/15/2024 Discontinued (Course of therapy completed) Comment on above: Inhale 2 Puffs as in structed every 4 hours as needed for wheezing/shortness of breath. Inhale 2 Puffs as in structed every 6 hours as needed. amoxicillin 875 mg oral tablet (2 sources) Penicillin-class Antibacterial Start: 024 End: take 1 tablet by mouth twice daily amoxicillin (AMOXIL) 875 mg tablet Indications: Dental abscess Take 1 tablet by mouth two times a day for 5 days. 10 tablet 10/11/2024 10/12/2024 Discontinued (Changing Therapy/Dosage Form) aspirin 81 mg delayed release oral tablet (20 sources) Platelet Aggregation Inhibitor, Nonsteroidal Anti-inflammatory Drug Start: End: take 1 tablet by mouth once daily aspirin, enteric coated (ECOTRIN LOW STRENGTH) 81 mg EC tablet Indications: 7 weeks gestation of (HCC) Take 1 tablet by mouth once daily. 90 tablet 3 10/20/2024 03/24/2025 Discontinued atomoxetine 10 mg oral capsule (9 sources) Norepinephrine Reuptake Inhibitor Start: End: take 1 capsule by mouth once daily atomoxetine (STRATTERA) 10 mg capsule Indications: ADHD (attention deficit hyperactivity disorder), predominantly hyperactive impulsive type Take 1 capsule by mouth once daily. 30 capsule 06/06/2024 07/25/2024 Discontinued benzonatate 100 mg oral capsule (16 sources) Non-narcotic Antitussive Start: take 2 capsules by mouth every eight hours as needed benzonatate (TESSALON PERLE) 100 mg capsule Take 2 capsules by mouth three times daily as needed. 30 capsule 0 07/05/2023 Active Start: 12-10-2022 take 2 capsules by m outh every eight hours as needed benzonatate (TESSALON PERLES) 100 mg capsule Take 2 capsules by mouth three times daily as needed. 30 capsule 0 12/10/2022 Active Comment on above: Take 2 capsules by m outh three times daily as needed. bifidobacterium infantis 4 mg oral capsule (19 sources) Start: 03-12-20 End: 06-09-20 take 1 capsule by mouth once daily Bifidobacterium Infantis (ALIGN) 4 mg cap Take 1 capsule by mouth once daily. FOR IBS. 90 capsule 6 03/12/2023 06/09/2023 Discontinued Comment on above: Take 1 capsule by mo uth once daily. FOR IBS. Blood-Glucose Meter (20 sources) Start: 12-31-19 End: 03-24-20 25 Blood-Glucose Meter Indications: Diet controlled gestational diabetes mellitus (GDM) in third trimester (HCC) Use as directed to check glucose levels up to seven times daily. 1 Each 12/30/2024 03/24/2025 Discontinued Start: 12-30-2024 Blood-Glucose Meter Indications: Diet controlled gestational diabetes mellitus (GDM) in third trimester (HCC) Use as directed to check glucose levels up to seven times daily. 1 Each 12/30/2024 Active Start: 12-30-2024 Blood-Glucose Meter Indications: Diet controlled gestational diabetes mellitus (GDM) in third trimester Use as directed to check glucose levels up to seven times daily. 1 Each 12/30/2024 Active brompheniramine maleate 0.4 mg/ml / dextromethorphan hydrobromide 2 mg/ml / pseudoephedrine hydrochloride 6 mg/ml oral solution (2 sources) alpha-Adrenergic Agonist, Uncompetitive J-nmftfe-V-aspartate Receptor Antagonist, Sigma-1 Agonist Start: 11-05-2019 End: 04-24-2022 take 10 mL by mouth every six hours as needed Djvwtqpkuolsyxx-Emjgvjlna-NE (BROMFED DM) 2-30-10 mg/5 mL syrup Take 10 mL by mouth four times daily as needed. 200 mL 11/05/2019 04/24/2022 Discontinued (Course of therapy completed) Comment on above: Take 10 mL by mouth four times daily as needed. calcium chloride 0.0014 meq/ml / potassium chloride 0.004 meq/ml / sodium chloride 0.103 meq/ml / sodium lactate 0.028 meq/ml injectable solution (1 source) Start: 05-16-2021 End: 05-17-2021 lactated ringers infusion cefOXitin (MEFOXIN) 2000 mg in dextrose 5% 50 mL (mini-bag) (2 sources) Start: 05-16-2021 End: 05-17-2021 2,000 mg, Intravenous, EVERY 8 HOURS, 2 doses, First dose on Thu05/16/21 at 1600, Last dose on Thu05/17/21 at 0000, Post-op Start: 05-16-2021 End: 05-16-2021 cefOXitin (MEFOXIN) 2000 mg in dextrose 5% 50 mL (mini-bag) cholecalciferol 1.25 mg oral capsule (2 sources) Vitamin D Start: 12-16-2018 End: 04-24-2022 take 1 capsule by mouth every week cholecalciferol, Vitamin D3, (VITAMIN D3) 50,000 unit cap capsule Take 1 capsule by mouth once each week. 12 capsule 3 12/16/2018 04/24/2022 Discontinued (Course of therapy completed) Comment on above: Take 1 capsule by [facility] once each week. clobetasol propionate 0.5 mg/ml topical solution (2 sources) Corticosteroid Start: 01-27-2019 End: 04-24-2022 Clobetasol Propionate (TEMOVATE) 0.05 % external solution Apply to affected areas on scalp once a day M-F. 50 mL 3 01/27/2019 04/24/2022 Discontinued (Course of therapy completed) Comment on above: Apply to affected ar eas on scalp once a day M-F. clomiPHENE citrate 50 mg oral tablet (2 sources) Estrogen Agonist/Antagonist Start: 06-23-2020 End: 04-24-2022 clomiPHENE (SEROPHENE) 50 mg tablet Take by mouth as directed. 06/23/2020 04/24/2022 Discontinued (Course of therapy completed) Comment on above: Take by mouth as dir ected. dicyclomine hydrochloride 20 mg oral tablet (10 sources) Anticholinergic Start: 10-30-2024 End: 01-05-2025 take 1 tablet by mouth four times daily as needed for muscle spasms Dicyclomine 20 mg tablet Discontinued 20 mg PO 4 TIMES DAILY as needed for Abdominal bloating/spasm October 30, 2024 6:50am January 05, 2025 10:23am Start: 12-15-2021 End: 04-30-2023 take 2 capsules by mouth every six hours as needed Dicyclomine 10 MG capsule Discontinued 20 mg PO EVERY 6 HOURS NEEDED as needed for abdominal discomfort December 15, 2021 8:53am April 30, 2023 9:26am Start: 12-15-2021 End: 04-30-2023 take 20 mg by mouth every six hours as needed Dicyclomine Discontinued 20 MG PO EVERY 6 HOURS NEEDED December 15, 2021 7:53am April 30, 2023 8:26am docusate sodium 100 mg oral capsule (14 sources) Start: 03-24-2025 End: 07-28-2025 take 2 capsules by mouth once daily at bedtime docusate sodium (COLACE) 100 mg capsule Take 2 capsules by mouth daily at bedtime. 50 capsule 1 03/24/2025 3:20 PM EDT 03/24/2025 05/08/2025 Discontinued (Other) Start: 02-14-2022 End: 03-16-2022 Colace 100 mg oral capsule D ose : 100 mg = 1 cap(s), Oral, BID, # 60 cap(s), 0 Refill(s), Pharmacy: [facility]/pharmacy #[id number], 162.6, cm, 02/10/22 20:53:00 EDT, Height Start Date: 02/14/22 Stop Date: 03/16/22 Status: Ordered Start: 08-28-2021 Colace 100 mg oral capsule Dose : 100 mg = 1 cap(s), Oral, BID, # 60 cap(s), 0 Refill(s), Pharmacy: [facility]/pharmacy #[id number], 162.6, cm, 08/26/21 9:36:00 EST, Height, kg, 08/26/21 9:36:00 EST, Dosing Weight Start Date: 08/28/21 Status: Ordered Start: 05-16-2021 End: 06-16-2021 take 1 capsule by mouth twice daily docusate sodium (COLACE, DULCOLAX) 100 MG CAPS Take 100 mg by mouth 2 times daily 60 capsule 0 05/17/2021 06/16/2021 Active 0.5 ml dulaglutide 3 mg/ml auto-injector (20 sources) GLP-1 Receptor Agonist Start: 08-05-2024 End: 09-28-2024 Dulaglutide (Trulicity) 1.5 mg/0.5 mL pen injector Discontinued 3 mg SC EVERY WEEK August 05, 2024 12:00am September 28, 2024 3:55pm Start: 03-16-2024 End: 07-12-2024 TRULICITY 1.5 mg/0.5 mL pen injector Indications: Class 3 severe obesity without serious comorbidity with body mass index (BMI) of 45.0 to 49.9 in adult, unspecified obesity type (HCC) Inject 3 mg subcutaneously one time a week 4 mL 04/13/2024 07/12/2024 Discontinued (Other) Start: 02-16-2024 End: 03-17-2024 dulaglutide (TRULICITY) 1.5 mg/0.5 mL pen injector Indications: Class 3 severe obesity without serious comorbidity with body mass index (BMI) of 45.0 to 49.9 in adult, unspecified obesity type (HCC) Inject 1.5 mg subcutaneously one time a week. 2 mL 0 02/16/2024 03/16/2024 Discontinued Start: 11-18-2023 End: 02-16-2024 dulaglutide (TRULICITY) 0.75 mg/0.5 mL pen injector Indications: Class 3 severe obesity without serious comorbidity with body mass index (BMI) of 45.0 to 49.9 in adult, unspecified obesity type (HCC) Inject 0.75 mg subcutaneously one time a week. 2 mL 2 11/18/2023 02/12/2024 Discontinued Comment on above: Inject 0.75 mg subcu taneously one time a week. dulaglutide (TRULICITY) 3 mg/0.5 mL pen injector (7 sources) Start: 03-21-2024 End: 05-10-2024 dulaglutide (TRULICITY) 3 mg/0.5 mL pen injector Indications: Class 3 severe obesity without serious comorbidity with body mass index (BMI) of 45.0 to 49.9 in adult, unspecified obesity type (HCC) Inject 3 mg subcutaneously one time a week. Patient should start on March 21, 2024. 6 mL 0 03/21/2024 05/10/2024 Discontinued Start: 03-21-2024 End: 06-19-2024 dulaglutide (TRULICITY) 3 mg /0.5 mL pen injector Indications: Class 3 severe obesity without serious comorbidity with body mass index (BMI) of 45.0 to 49.9 in adult, unspecified obesity type (HCC) Inject 3 mg subcutaneously one time a week. Patient should start on March 21, 2024. 6 mL 0 03/21/2024 06/19/2024 Active dulaglutide (TRULICITY) 3 mg/0.5 mL pen injector (14 sources) Start: 05-10-2024 End: 07-25-2024 dulaglutide (TRULICITY) 3 mg /0.5 mL pen injector Indications: Class 3 severe obesity without serious comorbidity with body mass index (BMI) of 45.0 to 49.9 in adult, unspecified obesity type (HCC) INJECT 1 PEN SUBCUTANEOUSLY EVERY WEEK 2 mL 2 05/10/2024 07/25/2024 Discontinued Start: 05-10-2024 End: 08-08-2024 dulaglutide (TRULICITY) 3 mg /0.5 mL pen injector Indications: Class 3 severe obesity without serious comorbidity with body mass index (BMI) of 45.0 to 49.9 in adult, unspecified obesity type (HCC) INJECT 1 PEN SUBCUTANEOUSLY EVERY WEEK 2 mL 2 05/10/2024 08/08/2024 Active [id number] 0.3 ml EPINEPHrine 1 mg/ml auto-injector (14 sources) alpha-Adrenergic Agonist, beta-Adrenergic Agonist, Catecholamine Start: 07-02-2022 End: 12-01-2022 EPINEPHrine (EPIPEN 2-ROSIE) 0.3 mg/0.3 mL auto-injector Inject 0.3 mL intramuscularly as needed. 2 Each 1 07/02/2022 12/01/2022 Discontinued Start: 01-28-2012 End: 04-24-2022 EPINEPHrine (EPIPEN JR) 0.15 mg/0.3 mL auto-injector EPINEPHrine EPIPEN JR 2-ROSIE 0.15 MG/0.3ML SOAJ use as directed EPINEPHRINE [id number] Maria Esther Grover MD 01-28-2012 Maria Esther Grover MD [facility] ([id number]) 01/28/2012 04/24/2022 Discontinued (Course of therapy completed) Start: 01-28-2012 EPIPEN JR 2-PA K 0.15 MG/0.3ML SOAJ use as directed EPINEPHRINE [id number] Maria Esther Grover MD Comment on above: EPINEPHrine EPIPEN J R 2-ROSIE 0.15 MG/0.3ML SOAJ use as directed EPINEPHRINE [id number] Maria Esther Grover MD 01-28-2012 Maria Esther Grover MD [facility] ([id number]) Inject 0.3 mL intram uscularly as needed. erythromycin 0.005 mg/mg ophthalmic ointment (4 sources) Macrolide, Macrolide Antimicrobial Start: 12-17-2022 erythromycin (ROMYCIN) 5 mg/gram (0.5 %) ophthalmic ointment Use 1 application in both eyes daily at bedtime. 3.5 g 1 12/17/2022 Active Comment on above: Use 1 application in both eyes daily at bedtime. 2 ml famotidine 10 mg/ml injection (1 source) Histamine-2 Receptor Antagonist Start: 05-16-2021 End: 05-16-2021 famotidine (PEPCID) injection 20 mg Start: 05-16-2021 End: 05-16-2021 famotidine (PEPCID) injectio n 20 mg 2 ml fentaNYL 0.05 mg/ml injection (1 source) Opioid Agonist Start: 05-16-2021 End: 05-16-2021 fentaNYL (SUBLIMAZE) injection 50 mcg gentamicin (GARAMYCIN) 340 mg in dextrose 5 % 250 mL IVPB (1 source) Start: 06-09-2021 End: 06-09-2021 gentamicin (GARAMYCIN) 340 mg in dextrose 5 % 250 mL IVPB hydrocortisone 25 mg/ml topical cream (2 sources) Corticosteroid Start: 02-16-2019 End: 04-24-2022 hydrocortisone 2.5 % cream Apply to affected areas on face, ears, chest twice a day for up to 2 weeks at a time as needed. 28 g 2 02/16/2019 04/24/2022 Discontinued (Course of therapy completed) Comment on above: Apply to affected ar eas on face, ears, chest twice a day for up to 2 weeks at a time as needed. 1 ml HYDROmorphone hydrochloride 1 mg/ml cartridge (2 sources) Opioid Agonist Start: 06-22-2021 End: 06-22-2021 HYDROmorphone (DILAUDID) injection 0.5 mg Start: 05-16-2021 End: 05-16-2021 HYDROmorphone (DILAUDID) inj ection 0.5 mg ibuprofen 600 mg oral tablet (16 sources) Nonsteroidal Anti-inflammatory Drug Start: 03-24-2025 End: 05-08-2025 take 1 tablet by mouth every six hours as needed ibuprofen (MOTRIN) 600 mg tablet Take 1 tablet by mouth every 6 hours as needed for pain. 60 tablet 1 03/24/2025 3:20 PM EDT 03/24/2025 05/08/2025 Discontinued (Other) Start: 02-14-2022 ibuprofen 600 mg oral tablet Dose : 600 mg = 1 tab(s), Oral, q6hr, Take with food or milk., # 40 tab(s), 0 Refill(s), [id number] 162.6, cm, 02/10/22 20:53:00 EDT, Height Start Date: 02/14/22 Status: Ordered Start: 08-28-2021 IBU 600 mg ora l tablet Dose : 600 mg = 1 tab(s), Oral, q6h, # 40 tab(s), 0 Refill(s), [id number] 162.6, cm, 08/26/21 9:36:00 EST, Height, kg, 08/26/21 9:36:00 EST, Dosing Weight Start Date: 08/28/21 Status: Ordered Start: 05-16-2021 take 1 tablet by wai th every six hours as needed for pain ibuprofen (ADVIL;MOTRIN) 600 MG tablet Take 1 tablet by mouth every 6 hours as needed for Pain 120 tablet 0 05/17/2021 Active take 2 tablets by mo uth once, then take 8 tablets by mouth every hour MOTRIN IB 200 MG TABS 2 tablet by mouth every eight to twelve hours ibuprofen [id number] Wendy Mcmullen LPN isopropyl alcohol 0.7 ml/ml medicated pad (20 sources) Start: 12-30-2024 End: 03-24-2025 alcohol swabs (ALCOHOL PREP PADS) Indications: Diet controlled gestational diabetes mellitus (GDM) in third trimester (HCC) Use as directed to check glucose levels up to seven times daily. 200 Each 8 12/30/2024 03/24/2025 Discontinued ketoconazole 20 mg/ml topical cream (4 sources) Azole Antifungal Start: 02-24-2023 End: 03-26-2023 ketoconazole (NIZORAL) 2 % cream Indications: Candidal intertrigo Apply to affected area once daily. 30 g 0 02/24/2023 03/26/2023 Start: 01-27-2019 End: 04-24-2022 ketoconazole (NIZORAL) 2 % s hampoo Lather into scalp, ears, brows for 5 minutes then rinse. Use 3 times per week. 120 mL 11 01/27/2019 04/24/2022 Discontinued (Course of therapy completed) Comment on above: Lather into scalp, e ars, brows for 5 minutes then rinse. Use 3 times per week. Apply to affected ar ea once daily. lactobacillus comb no.10 20 billion cell cap (6 sources) Start: End: take 2 capsules by mouth once daily lactobacillus comb no.10 20 billion cell cap Indications: Facial cellulitis Take 2 capsules by mouth once daily for 14 days. 28 capsule 10/12/2024 11/15/2024 Discontinued Start: 10-12-2024 take 2 capsules by [facility] once daily lactobacillus comb no.10 20 billion cell cap Indications: Facial cellulitis Take 2 capsules by mouth once daily for 14 days. 28 capsule 10/12/2024 Active Start: 10-12-2024 End: 10-26-2024 take 2 capsules by mouth once daily lactobacillus comb no.10 20 billion cell cap Indications: Facial cellulitis Take 2 capsules by mouth once daily for 14 days. 28 capsule 10/12/2024 10/26/2024 Active loratadine 10 mg oral tablet (6 sources) Start: 03-02-2012 End: 06-25-2012 take 1 tablet by mouth twice daily CLARITIN 10 MG TABS One tablet by mouth twice daily LORATADINE [id number] Maria Esther Grover MD Start: 01-28-2012 take 1 tablet by wai once daily CLARITIN 10 MG TABS One tablet by mouth daily LORATADINE [id number] Maria Esther Grover MD 1 ml LORazepam 2 mg/ml injection (1 source) Benzodiazepine Start: 05-16-2021 End: 05-16-2021 LORazepam (ATIVAN) injection 0.5 mg 24 hr metFORMIN hydrochloride 500 mg extended release oral tablet (5 sources) Biguanide Start: 04-24-2022 End: 06-18-2022 take 1 tablet by mouth twice daily metFORMIN ER (GLUCOPHAGE XR) 500 mg 24 hr tablet Indications: Weight gain Take 1 tablet by mouth twice daily. 60 tablet 3 04/24/2022 06/18/2022 Discontinued (Side Effects) Start: 07-25-2020 End: 04-24-2022 take 1 tablet by mouth three times daily metFORMIN (GLUCOPHAGE) 500 mg tablet Take 1 tablet by mouth three times daily. 07/25/2020 04/24/2022 Discontinued Comment on above: Take 1 tablet by wai th twice daily. Take 1 tablet by wai th three times daily. metroNIDAZOLE 500 mg oral tablet (12 sources) Nitroimidazole Antimicrobial Start: 05-12-20 End: 05-19-20 take 1 tablet by mouth twice daily metroNIDAZOLE (FLAGYL) 500 mg tablet Take 1 tablet by mouth two times a day for 7 days. 14 tablet 0 05/12/2024 05/19/2024 Start: 09-09-2023 End: 09-14-2023 metroNIDAZOLE (METROGEL VAGI NAL) 0.75 % (37.5mg/5 gram) Vaginal Gel Indications: Vaginal discharge Use 1 Applicatorful vaginally daily at bedtime for 5 days. 70 g 09/09/2023 09/14/2023 Start: 02-22-2019 End: 04-24-2022 take 1 tablet by mouth twice daily metroNIDAZOLE (FLAGYL) 500 mg tablet Take 1 tablet by mouth twice daily. 14 tablet 02/22/2019 04/24/2022 Discontinued (Course of therapy completed) Comment on above: Take 1 tablet by wai th twice daily. naproxen 500 mg oral tablet (8 sources) Nonsteroidal Anti-inflammatory Drug Start: 014 End: take 1 tablet by mouth twice daily as needed for pain Naproxen 500 MG tablet Discontinued 500 mg PO TWICE DAILY NEEDED as needed for Pain October 30, 2013 1:00am November 18, 2013 11:04pm nitrofurantoin, macrocrystals 100 mg oral capsule (11 sources) Nitrofuran Antibacterial Start: 024 End: take 1 capsule by mouth twice daily at mealtime Nitrofurantoin Macrocrystal 100 mg capsule Discontinued 100 mg PO TWICE A DAY 14 November 24, 2023 1:00am March 04, 2024 8:47pm must administer with a meal/food Start: 10-04-2013 End: 10-30-2013 take 1 capsule by mouth every twelve hours Nitrofurantoin Monohyd/M-Cryst 100 MG capsule Discontinued 100 mg PO EVERY 12 HOURS October 04, 2013 1:00am October 30, 2013 7:58pm nitrofurantoin, macrocrystals 25 mg / nitrofurantoin, monohydrate 75 mg oral capsule (15 sources) Nitrofuran Antibacterial Start: 05-13-2024 End: 05-18-2024 take 1 capsule by mouth twice daily nitrofurantoin monohydrate and macrocrystal (MACROBID) 100 mg capsule Take 1 capsule by mouth two times a day for 5 days. 10 capsule 0 05/13/2024 05/18/2024 Start: 02-18-2024 End: 02-23-2024 take 1 capsule by mouth twice daily nitrofurantoin monohydrate and macrocrystal (MACROBID) 100 mg capsule Indications: Urinary tract infection without hematuria, site unspecified Take 1 capsule by mouth two times a day for 5 days. 10 capsule 0 02/18/2024 02/23/2024 Active Start: 05-18-2023 End: 03-04-2024 take 1 capsule by mouth every twelve hours Nitrofurantoin Monohyd/M-Cryst 100 mg capsule Discontinued 100 mg PO Q12H May 18, 2023 12:00am March 04, 2024 8:47pm Start: 05-14-2023 End: 05-21-2023 take 1 capsule by mouth twice daily at mealtime nitrofurantoin monohydrate and macrocrystal (MACROBID) 100 mg capsule Take 1 capsule by mouth twice daily with meals for 7 days. 14 capsule 0 05/14/2023 05/21/2023 Comment on above: Take 1 capsule by [facility] twice daily with meals for 7 days. ondansetron 4 mg disintegrating oral tablet (12 sources) Serotonin-3 Receptor Antagonist Start: 10-30-19 End: 01-06-20 take 1 tablet by mouth three times daily as needed for nausea and vomiting Ondansetron 4 mg tablet,disintegratin g Discontinued 4 mg PO THREE TIMES A DAY as needed for nausea and vomiting October 30, 2024 6:49am January 05, 2025 10:22am Start: 12-15-2021 End: 04-30-2023 take 2 tablets by mouth every eight hours as needed for nausea Ondansetron 4 MG tablet Discontinued 8 mg PO EVERY 8 HOURS NEEDED as needed for Nausea December 15, 2021 1:00am April 30, 2023 9:26am Start: 12-15-2021 End: 04-30-2023 take 8 mg by mouth every eight hours as needed Ondansetron Discontinued 8 MG PO EVERY 8 HOURS NEEDED December 15, 2021 12:00am April 30, 2023 8:26am Start: 06-22-2021 take 1 tablet by wai th three times daily as needed for nausea ondansetron (ZOFRAN) 4 MG tablet Take 1 tablet by mouth 3 times daily as needed for Nausea or Vomiting 15 tablet 0 06/22/2021 Active Start: 06-22-2021 End: 06-22-2021 ondansetron (ZOFRAN) injecti on 4 mg penicillin v potassium 250 m g oral tablet (2 sources) Start: 01-22-2017 PENICILLIN V P OTASSIUM 250 MG TABS as directed PENICILLIN V POTASSIUM [id number] Michelle Celis LPN PNV 130-yppli-jycsx-3-fish o il 400-32.5 mcg-mg chew (20 sources) Start: 07-22-2024 End: 05-08-2025 PNV 533-xgjnh-rqayr-3-fish o il 400-32.5 mcg-mg chew 07/22/2024 05/08/2025 Discontinued (Other) Start: 07-22-2024 PNV 103-folic- gangi-3-jdwu oil 400-32.5 mcg-mg chew 07/22/2024 Active Pnv Cmb#95-Ferrous Fumarate- Fa ( Multivitamins) 28 mg iron- 800 mcg tablet (7 sources) Start: 05-18-2023 End: 03-04-2024 Pnv Cmb#95-Ferrous Fumarate- Fa ( Multivitamins) 28 mg iron- 800 mcg tablet Discontinued 1 {tbl} PO DAILY May 18, 2023 12:00am March 04, 2024 8:47pm Start: 05-18-2023 take 1 tablet by wai th once daily Pnv Cmb#95-Ferrous Fumarate-Fa ( Multivitamins) 28 mg iron- 800 mcg tablet Active 1 TABLET PO DAILY May 17, 2023 11:00pm Start: 05-18-2023 take 1 tablet by wai th once daily Pnv Cmb#95-Ferrous Fumarate-Fa ( Multivitamins) 28 mg iron- 800 mcg tablet Active 1 TABLET PO DAILY May 18, 2023 12:00am polyethylene glycol 3350 53311 mg powder for oral solution (12 sources) Osmotic Laxative Start: 09-18-2022 End: 09-19-2022 MiraLax oral powder for reconstitution see instructions, Oral, Mix in 32 ounce bottle of Gatorade. Shake and chill in refrigerator for 1 hour. Drink one 8 ounce glass of Miralax mix every hour, til gone, X 1 day(s), # 238 gram(s), 0 Refill(s), 09/19/22 14:26:00 EST, Pharmacy: [facility]/pharmacy... Start Date: 09/18/22 Stop Date: 09/19/22 Status: Ordered Start: 05-18-2021 End: 06-21-2021 Polyethylene Glycol 3350 (Mi ralax) 17 gram Powder In Packet Discontinued 17 g PO DAILY June 18, 2021 12:00am June 21, 2021 5:06pm Start: 05-16-2021 17 g, Oral, DENIS PAYAN, First dose on Ana 05/16/21 at 1015 progesterone 200 mg oral capsule (2 sources) Progesterone Start: 05-14-2020 End: 04-24-2022 progesterone micronized (PROMETRIUM) 200 mg capsule Take 1 capsule by mouth as directed. 05/14/2020 04/24/2022 Discontinued (Course of therapy completed) Comment on above: Take 1 capsule by [facility] as directed. promethazine hydrochloride 25 mg oral tablet (8 sources) Phenothiazine Start: 10-04-2013 End: 10-30-2013 take 1 tablet by mouth every six hours as needed for nausea Promethazine 25 MG tablet Discontinued 25 mg PO EVERY 6 HOURS NEEDED as needed for Nausea October 04, 2013 1:00am October 30, 2013 7:58pm sertraline 50 mg oral tablet (2 sources) Serotonin Reuptake Inhibitor take 1 tablet by mouth once daily ZOLOFT 50 MG TABS One tablet by mouth daily SERTRALINE HCL [id number] Beka Boateng spironolactone 100 mg oral tablet (2 sources) Aldosterone Antagonist Start: 01-08-2017 take 1 tablet by mouth twice daily SPIRONOLACTONE 100 MG TABS One tablet by mouth twice daily SPIRONOLACTONE [id number] Stephani Daniels RN RN tirzepatide (MOUNJARO) 10 mg/0.5 mL pen injector (4 sources) Start: 08-26-2022 End: 09-29-2022 inject 10 mg by subcutaneous injection every week tirzepatide (MOUNJARO) 10 mg/0.5 mL pen injector Inject 10 mg subcutaneously one time a week. 2 mL 1 08/26/2022 09/29/2022 Discontinued Start: 08-26-2022 inject 10 mg by subc utaneous injection every week tirzepatide (MOUNJARO) 10 mg/0.5 mL pen injector Inject 10 mg subcutaneously one time a week. 2 mL 1 08/26/2022 Active Comment on above: Inject 10 mg subcuta neously one time a week. tirzepatide (MOUNJARO) 15 mg/0.5 mL pen injector (20 sources) Start: 023 End: 023 inject 15 mg by subcutaneous injection every week tirzepatide (MOUNJARO) 15 mg/0.5 mL pen injector Inject 15 mg subcutaneously one time a week. 2 mL 2 04/27/2023 05/15/2023 Discontinued Start: 04-27-2023 End: 07-26-2023 inject 15 mg by subcutaneous injection every week tirzepatide (MOUNJARO) 15 mg/0.5 mL pen injector Inject 15 mg subcutaneously one time a week. 2 mL 2 04/27/2023 07/26/2023 Active Start: 04-01-2023 End: 04-25-2023 inject 15 mg by subcutaneous injection every week tirzepatide (MOUNJARO) 15 mg/0.5 mL pen injector Inject 15 mg subcutaneously one time a week. 2 mL 2 04/01/2023 04/25/2023 Discontinued Start: 04-01-2023 End: 06-30-2023 inject 15 mg by subcutaneous injection every week tirzepatide (MOUNJARO) 15 mg/0.5 mL pen injector Inject 15 mg subcutaneously one time a week. 2 mL 2 04/01/2023 06/30/2023 Active Start: 01-08-2023 End: 03-31-2023 inject 15 mg by subcutaneous injection every week tirzepatide (MOUNJARO) 15 mg/0.5 mL pen injector Inject 15 mg subcutaneously one time a week. 2 mL 2 01/08/2023 03/31/2023 Discontinued Start: 01-08-2023 End: 04-08-2023 inject 15 mg by subcutaneous injection every week tirzepatide (MOUNJARO) 15 mg/0.5 mL pen injector Inject 15 mg subcutaneously one time a week. 2 mL 2 01/08/2023 04/08/2023 Active Start: 10-29-2022 End: 01-27-2023 inject 15 mg by subcutaneous injection every week tirzepatide (MOUNJARO) 15 mg/0.5 mL pen injector Inject 15 mg subcutaneously one time a week. 2 mL 2 10/29/2022 01/27/2023 Active Comment on above: Inject 15 mg subcuta neously one time a week. tirzepatide (MOUNJARO) 5 mg/0.5 mL pen injector (3 sources) Start: End: inject 5 mg by subcutaneous injection every week tirzepatide (MOUNJARO) 5 mg/0.5 mL pen injector Inject 5 mg subcutaneously one time a week. 2 mL 0 07/07/2022 08/26/2022 Discontinued (Course of therapy completed) Start: 07-07-2022 inject 5 mg by subcu taneous injection every week tirzepatide (MOUNJARO) 5 mg/0.5 mL pen injector Inject 5 mg subcutaneously one time a week. 2 mL 0 07/07/2022 Active Comment on above: Inject 5 mg subcutan eously one time a week. tirzepatide (MOUNJARO) 7.5 mg/0.5 mL pen injector (3 sources) Start: End: inject 7.5 mg by subcutaneous injection every week tirzepatide (MOUNJARO) 7.5 mg/0.5 mL pen injector Inject 7.5 mg subcutaneously one time a week. 2 mL 1 08/04/2022 09/09/2022 Discontinued Start: 08-04-2022 inject 7.5 mg by sub cutaneous injection every week tirzepatide (MOUNJARO) 7.5 mg/0.5 mL pen injector Inject 7.5 mg subcutaneously one time a week. 2 mL 1 08/04/2022 Active Comment on above: Inject 7.5 mg subcut aneously one time a week. tirzepatide (MOUNJARO) 7.5 mg/0.5 mL pen injector (20 sources) Start: 05-15-2023 End: 06-08-2023 tirzepatide (MOUNJARO) 7.5 mg/0.5 mL pen injector Indications: Class 3 severe obesity without serious comorbidity with body mass index (BMI) of 45.0 to 49.9 in adult, unspecified obesity type (HCC) Inject 7.5 mg subcutaneously one time a week. 2 mL 0 05/15/2023 06/08/2023 Discontinued Start: 05-15-2023 End: 06-14-2023 tirzepatide (MOUNJARO) 7.5 m g/0.5 mL pen injector Indications: Class 3 severe obesity without serious comorbidity with body mass index (BMI) of 45.0 to 49.9 in adult, unspecified obesity type (HCC) Inject 7.5 mg subcutaneously one time a week. 2 mL 0 05/15/2023 06/14/2023 Active Start: 05-07-2023 End: 05-15-2023 tirzepatide (MOUNJARO) 7.5 m g/0.5 mL pen injector Indications: Class 3 severe obesity without serious comorbidity with body mass index (BMI) of 45.0 to 49.9 in adult, unspecified obesity type (HCC) Inject 7.5 mg subcutaneously one time a week. 2 mL 0 05/07/2023 05/15/2023 Discontinued Start: 05-07-2023 End: 06-06-2023 tirzepatide (MOUNJARO) 7.5 m g/0.5 mL pen injector Indications: Class 3 severe obesity without serious comorbidity with body mass index (BMI) of 45.0 to 49.9 in adult, unspecified obesity type (HCC) Inject 7.5 mg subcutaneously one time a week. 2 mL 0 05/07/2023 06/06/2023 Active Start: 04-28-2023 End: 06-08-2023 inject 7.5 mg by subcutaneous injection every week tirzepatide (MOUNJARO) 7.5 mg/0.5 mL pen injector Inject 7.5 mg subcutaneously one time a week. 2 mL 0 04/28/2023 06/08/2023 Discontinued Start: 04-28-2023 End: 05-28-2023 inject 7.5 mg by subcutaneous injection every week tirzepatide (MOUNJARO) 7.5 mg/0.5 mL pen injector Inject 7.5 mg subcutaneously one time a week. 2 mL 0 04/28/2023 05/28/2023 Active Comment on above: Inject 7.5 mg subcut aneously one time a week. topiramate 25 mg oral tablet (20 sources) Start: 08-05-20 End: 09-28-20 take 4 tablets by mouth once daily Topiramate 25 mg tablet Discontinued 100 mg PO daily August 05, 2024 12:00am September 28, 2024 3:55pm Start: 11-18-2023 End: 07-25-2024 take 45-49.9 tablets by mouth once daily topiramate (TOPAMAX) 25 mg tablet Indications: Class 3 severe obesity without serious comorbidity with body mass index (BMI) of 45.0 to 49.9 in adult, unspecified obesity type (HCC) Take 4 tablets by mouth once daily. 120 tablet 2 02/16/2024 07/25/2024 Discontinued Start: 08-17-2023 End: 11-18-2023 take 45-49.9 tablets by mouth twice daily topiramate (TOPAMAX) 25 mg tablet Indications: Class 3 severe obesity without serious comorbidity with body mass index (BMI) of 45.0 to 49.9 in adult, unspecified obesity type (HCC) Take 1 tablet by mouth two times a day. 60 tablet 2 08/17/2023 11/18/2023 Discontinued Start: 09-29-2022 End: 12-28-2022 take 1 tablet by mouth twice daily topiramate (TOPAMAX) 25 mg tablet Take 1 tablet by mouth twice daily. 60 tablet 2 09/29/2022 10/29/2022 Discontinued (Side Effects) Comment on above: Take 1 tablet by wai th twice daily. Take 1 tablet by wai th two times a day. Take 4 tablets by mo ut once daily. Unk Allergy Pill (8 sources) Start: 10-04-2013 End: 11-18-2013 Unk Allergy Pill Discontinued October 04, 2013 12:00am November 18, 2013 10:05pm Start: 10-04-2013 End: 11-18-2013 Unk Allergy Pill Discontinue d October 04, 2013 1:00am November 18, 2013 11:05pm Viloxazine (9 sources) Start: 08-05-2024 End: 09-28-2024 take 1 capsule by mouth once daily Viloxazine (Qelbree) 200 mg capsule,extended release 24hr Discontinued 200 mg PO daily August 05, 2024 12:00am September 28, 2024 3:55pm Start: 05-10-2024 End: 06-06-2024 take 1 capsule by mouth once daily viloxazine (QELBREE) 200 mg capsule, extended release Indications: ADHD (attention deficit hyperactivity disorder), predominantly hyperactive impulsive type Take 1 capsule (200 mg) by mouth once daily. 30 capsule 05/10/2024 06/06/2024 Discontinued Start: 05-10-2024 take 1 capsule by mo uth once daily viloxazine (QELBREE) 200 mg capsule, extended release Indications: ADHD (attention deficit hyperactivity disorder), predominantly hyperactive impulsive type Take 1 capsule (200 mg) by mouth once daily. 30 capsule 0 05/10/2024 Active Problems Active Problems Problem Classification Problem Date Documented Da te Episodic/Chronic Abdominal pain (20 sources) Lower abdominal pain; Translations: [Lower abdominal pain, unspecified] Onset: 4 Episodic Acute posthemorrhagic anemia (11 sources) Acute posthemorrhagic anemia; Translations: [Acute posthemorrhagic anemia] Onset: 5 03-24-2025 Episodic Administrative/social admission (3 sources) Encounter for routine child health examination without abnormal findings; Translations: [Counseling procedure with explicit context] Onset: 2 03-02-2012 Episodic Allergic reactions (3 sources) Allergy to peanuts; Translations: [Allergic reaction] Onset: 2 01-28-2012 Episodic Anal and rectal conditions (1 source) Rectal pain; Translations: [Other specified diseases of anus and rectum] Episodic Anxiety disorders (20 sources) Anxiety disorder; Translations: [Anxiety disorder, unspecified] Onset: Chronic Attention-deficit, conduct, and disruptive behavior disorders (2 sources) Attention deficit hyperactivity disorder, predominantly hyperactive impulsive type; Translations: [Attention-deficit hyperactivity disorder, predominantly hyperactive type] 05-10-2024 Chronic Attention-deficit, conduct, and disruptive behavior disorders (2 sources) Attention deficit hyperactivity disorder; Translations: [Attention-deficit hyperactivity disorder, unspecified type] 08-05-2024 Chronic Blindness and vision defects (3 sources) Blurring of visual image; Translations: [Other visual disturbances] Episodic Cardiac dysrhythmias (2 sources) Paroxysmal tachycardia, unspecified; Translations: [Paroxysmal tachycardia] Onset: 4 08-08-2024 Chronic Chronic obstructive pulmonary disease and bronchiectasis (10 sources) Bronchitis; Translations: [Bronchitis, not specified as acute or chronic] Episodic Complication of device; implant or graft (10 sources) Complication of urinary catheter; Translations: [Unspecified complication of genitourinary prosthetic device, implant and graft, initial encounter] Onset: 3 06-18-2021 Episodic Disorders of teeth and jaw (13 sources) Toothache; Translations: [Other specified disorders of teeth and supporting structures] 08-27-2020 Episodic E Codes: Fall (2 sources) Accidental fall ; Translations: [Unspecified fall, initial encounter] 11-02-2024 Episodic Early or threatened labor (3 sources) Premature uterine contraction; Translations: [False labor before 37 completed weeks of gestation, unspecified trimester] Onset: 5 01-06-2025 Episodic Esophageal disorders (2 sources) Gastroesophageal reflux disease; Translations: [Gastro-esophageal reflux disease without esophagitis] 08-05-2024 Chronic Fever of unknown origin (8 sources) Fever; Translations: [Fever, unspecified] 06-29-2021 Episodic Fluid and electrolyte disorders (10 sources) Hypokalemia; Translations: [Hypokalemia] 06-29-2021 Episodic Genitourinary symptoms and ill-defined conditions (20 sources) Dysuria; Translations: [Dysuria] Onset: Episodic Headache; including migraine (1 source) Migraine without aura, not refractory ; Translations: [Migraine without aura, not intractable, without status migrainosus] 06-09-2023 Chronic Immunizations and screening for infectious disease (2 sources) Vaccination needed; Translations: [Encounter for immunization] Onset: 5 01-10-2025 Episodic Inflammatory diseases of female pelvic organs (9 sources) Acute vaginitis; Translations: [Acute vaginitis] Episodic Intestinal infection (14 sources) Clostridium difficile diarrhea; Translations: [Enterocolitis due to Clostridium difficile, not specified as recurrent] 06-20-2021 Episodic Intestinal obstruction without hernia (17 sources) Small bowel obstruction; Translations: [Unspecified intestinal obstruction, unspecified as to partial versus complete obstruction] 05-18-2023 Episodic Menstrual disorders (5 sources) Menorrhagia; Translations: [Excessive and frequent menstruation with regular cycle] Onset: 4 11-27-2023 Chronic Mood disorders (10 sources) Mood disorder; Translations: [Depressive disorder] Onset: 2 03-17-2012 Chronic Mycoses (1 source) Candidal intertrigo; Translations: [Candidiasis of skin and nail] 06-08-2023 Episodic Nausea and vomiting (11 sources) Nausea; Translations: [Nausea] Onset: 4 05-27-2023 Episodic Nonmalignant breast conditions (2 sources) Fibrocystic changes of bilateral breasts; Translations: [Diffuse cystic mastopathy of right breast] 11-27-2023 Chronic Open wounds of extremities (8 sources) Laceration of finger; Translations: [Laceration without foreign body of unspecified finger without damage to nail, initial encounter] 02-01-2020 Episodic Other bone disease and musculoskeletal deformities (8 sources) Costal chondritis; Translations: [Chondrocostal junction syndrome [Tietze]] 10-23-2018 Episodic Other circulatory disease (2 sources) Low blood pressure; Translations: [Hypotension, unspecified] 09-28-2024 Episodic Other complications of ; puerperium affecting management of mother (4 sources) Disruption of episiotomy wound in the puerperium; Translations: [Disruption of perineal obstetric wound] Episodic Other complications of (2 sources) Obesity complicating , second trimester; Translations: [Obesity affecting in second trimester, unspecified obesity type (HCC)] Onset: 5 Chronic Other complications of (11 sources) Reduced movement; Translations: [Decreased movements, unspecified trimester, not applicable or unspecified] 05-14-2021 Episodic Comment on above: 33-week intrauterine with decreased movement. Movement noted by nursing. heart tones also reactive. Will discharge to home with routine instructions. Other complications of (1 source) Supervision of other high risk pregnancies, third trimester; Translations: [Supervision of other high risk pregnancies, third trimester] Onset: 5 Episodic Other connective tissue disease (1 source) Synovitis of right ankle joint; Translations: [Synovitis and tenosynovitis, unspecified] Onset: 2 11-19-2021 Episodic Other connective tissue disease (5 sources) Disorder of abdominal wall; Translations: [Ventral hernia without obstruction or gangrene] 10-13-2022 Episodic Other connective tissue disease (3 sources) Pelvic floor dysfunction; Translations: [Other specified disorders of muscle] 07-28-2023 Episodic Other endocrine disorders (1 source) Polycystic ovarian syndrome; Translations: [Polycystic ovary syndrome] Onset: 5 Chronic Other eye disorders (2 sources) Meibomian gland dysfunction of bilateral eyes; Translations: [Meibomian gland dysfunction right eye, upper and lower eyelids] Episodic Other eye disorders (1 source) Intermittent alternating exotropia; Translations: [Intermittent alternating exotropia] Episodic Other female genital disorders (20 sources) Rectovaginal fistula; 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] Onset: 1 Chronic Other female genital disorders (4 sources) Fistula of vagina to large intestine; 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] Onset: 1 Chronic Other female genital disorders (5 sources) Fistula of vagina to large intestine; 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] Onset: 2 Chronic Other female genital disorders (6 sources) Vaginal bleeding; Translations: [Abnormal uterine and vaginal bleeding, unspecified] 07-22-2023 Chronic Other female genital disorders (5 sources) Vaginal discharge; Translations: [Other specified noninflammatory disorders of vagina] Episodic Other female genital disorders (1 source) White vaginal discharge; Translations: [Other specified noninflammatory disorders of vagina] 06-23-2023 Episodic Other gastrointestinal disorders (1 source) Finding of stoma device; Translations: [Encounter for attention to ileostomy] Chronic Other gastrointestinal disorders (1 source) Incontinence of feces; Translations: [Full incontinence of feces] Onset: 1 Episodic Other gastrointestinal disorders (6 sources) Diarrhea; Translations: [Diarrhea, unspecified] 06-20-2021 Episodic Other gastrointestinal disorders (1 source) Diarrhea, unspecified; Translations: [Diarrhea, unspecified] Onset: 4 Episodic Other gastrointestinal disorders (1 source) Diarrhea of presumed infectious origin; Translations: [Diarrhea, unspecified] 02-25-2024 Episodic Other inflammatory condition of skin (20 sources) Psoriasis; Translations: [Psoriasis, unspecified] Onset: 9 06-20-2019 Chronic Other inflammatory condition of skin (1 source) Intertrigo; Translations: [Erythema intertrigo] 06-27-2024 Episodic Other injuries and conditions due to external causes (1 source) Injury of right elbow region; Translations: [Unspecified injury of right elbow, initial encounter] 12-29-2020 Episodic Other liver diseases (1 source) Lesion of liver; Translations: [Liver disease, unspecified] 08-24-2023 Chronic Other lower respiratory disease (8 sources) Dyspnea; Translations: [Dyspnea, unspecified] 10-23-2018 Episodic Other nervous system disorders (2 sources) Chronic pain; Translations: [Other chronic pain] 08-05-2024 Chronic Other nervous system disorders (1 source) Postoperative pain ; Translations: [Other acute postprocedural pain] Onset: 2 Episodic Other non-traumatic joint disorders (1 source) Shoulder pain; Translations: [Pain in left shoulder] Episodic Other non-traumatic joint disorders (1 source) Pain in left shoulder; Translations: [Pain in joint, shoulder region] 02-12-2023 Episodic Other non-traumatic joint disorders (1 source) Pain in elbow; Translations: [Pain in right elbow] 12-29-2020 Episodic Other nutritional; endocrine; and metabolic disorders (4 sources) Overweight; Translations: [Body mass index (BMI) 40.0-44.9, adult] Onset: 7 01-08-2017 Chronic Other nutritional; endocrine; and metabolic disorders (3 sources) Body mass index 40+ - severely obese; Translations: [Body mass index (BMI) 40.0-44.9, adult] Onset: 8 Chronic Other nutritional; endocrine; and metabolic disorders (20 sources) Severe obesity; Translations: [Morbid (severe) obesity due to excess calories] Onset: 8 Chronic Other nutritional; endocrine; and metabolic disorders (2 sources) Obesity, unspecified; Translations: [Obesity, unspecified] Onset: 2 Chronic Other nutritional; endocrine; and metabolic disorders (2 sources) Body mass index (BMI) 45.0-49.9, adult; Translations: [Body mass index [BMI] 45.0-49.9, adult] Onset: 2 Chronic Other nutritional; endocrine; and metabolic disorders (1 source) Body mass index 30+ - obesity; Translations: [Body mass index (BMI) 38.0-38.9, adult] 11-27-2023 Chronic Other nutritional; endocrine; and metabolic disorders (1 source) Body mass index (BMI) 36.0-36.9, adult; Translations: [Class 2 obesity without serious comorbidity with body mass index (BMI) of 36.0 to 36.9 in adult, unspecified obesity type] Onset: 3 Chronic Other nutritional; endocrine; and metabolic disorders (4 sources) Weight gain; Translations: [Abnormal weight gain] Episodic Other nutritional; endocrine; and metabolic disorders (1 source) Overweight; Translations: [Overweight] 11-27-2023 Episodic Other and delivery including normal (20 sources) ; Translations: [Encounter for supervision of normal , unspecified, unspecified trimester] Onset: 4 Resolved: 5 05-14-2021 Episodic Other skin disorders (1 source) Hirsutism; Translations: [Hirsutism] 11-27-2023 Episodic Other skin disorders (1 source) Acne; Translations: [Acne, unspecified] 11-27-2023 Episodic Other skin disorders (1 source) Facial swelling ; Translations: [Localized swelling, mass and lump, head] 02-02-2024 Episodic Other skin disorders (1 source) Skin finding; Translations: [Excessive and redundant skin and subcutaneous tissue] 06-27-2024 Episodic Other upper respiratory disease (20 sources) Allergic rhinitis; Translations: [Allergic rhinitis, unspecified] Onset: 9 01-28-2012 Chronic Other upper respiratory infections (1 source) Bacterial sinusitis; Translations: [Chronic sinusitis, unspecified] 06-25-2024 Chronic Other upper respiratory infections (12 sources) Acute pharyngitis; Translations: [Upper respiratory infection] Onset: 2 Resolved: 2 01-28-2012 Episodic Otitis media and related conditions (2 sources) Dysfunction of right eustachian tube; Translations: [Unspecified Eustachian tube disorder, right ear] 01-27-2024 Episodic Prolapse of female genital organs (4 sources) Rectocele; Translations: [Rectocele] Onset: Chronic Residual codes; unclassified (10 sources) Gestation period, 36 weeks; Translations: [36 weeks gestation of ] 06-18-2021 Episodic Residual codes; unclassified (4 sources) Treatment not available; Translations: [Procedure and treatment not carried out for other reasons] 05-14-2023 Episodic Residual codes; unclassified (1 source) Acquired absence of other specified parts of digestive tract; Translations: [Acquired absence of other specified parts of digestive tract] Onset: Episodic Residual codes; unclassified (2 sources) Family history of breast cancer; Translations: [Family history of malignant neoplasm of breast] 11-27-2023 Episodic Residual codes; unclassified (1 source) Family history of malignant neoplasm of ovary; Translations: [Family history of malignant neoplasm of ovary] 11-27-2023 Episodic Residual codes; unclassified (2 sources) History of syncope; Translations: [Personal history of other specified conditions] 07-13-2024 Episodic Residual codes; unclassified (2 sources) Gestation period, 7 weeks; Translations: [Less than 8 weeks gestation of ] 08-18-2024 Episodic Residual codes; unclassified (1 source) Gestation period, 8 weeks; Translations: [8 weeks gestation of ] 08-23-2024 Episodic Residual codes; unclassified (2 sources) Gestation period, 12 weeks; Translations: [12 weeks gestation of ] 09-19-2024 Episodic Residual codes; unclassified (1 source) Gestation period, 16 weeks; Translations: [16 weeks gestation of ] 10-20-2024 Episodic Residual codes; unclassified (2 sources) Gestation period, 20 weeks; Translations: [20 weeks gestation of ] 11-15-2024 Episodic Residual codes; unclassified (1 source) Gestation period, 24 weeks; Translations: [24 weeks gestation of ] 12-15-2024 Episodic Residual codes; unclassified (2 sources) Gestation period, 27 weeks; Translations: [27 weeks gestation of ] 01-06-2025 Episodic Residual codes; unclassified (2 sources) Gestation period, 28 weeks; Translations: [28 weeks gestation of ] 01-10-2025 Episodic Residual codes; unclassified (2 sources) Gestation period, 29 weeks; Translations: [29 weeks gestation of ] 01-21-2025 Episodic Residual codes; unclassified (2 sources) Gestation period, 32 weeks; Translations: [32 weeks gestation of ] 02-06-2025 Episodic Residual codes; unclassified (2 sources) Gestation period, 34 weeks; Translations: [34 weeks gestation of ] 02-21-2025 Episodic Residual codes; unclassified (2 sources) Gestation period, 38 weeks; Translations: [38 weeks gestation of ] 03-21-2025 Episodic Residual codes; unclassified (1 source) Gestation period, 37 weeks; Translations: [37 weeks gestation of ] 03-14-2025 Episodic Residual codes; unclassified (1 source) 38 weeks gestation of ; Translations: [38 weeks gestation of (HCC)] Onset: Episodic Residual codes; unclassified (1 source) 37 weeks gestation of ; Translations: [37 weeks gestation of (HCC)] Onset: 5 Episodic Skin and subcutaneous tissue infections (7 sources) Abscess of perineum; Translations: [Cutaneous abscess of perineum] 06-21-2021 Episodic Spondylosis; intervertebral disc disorders; other back problems (1 source) Acute low back pain; Translations: [Acute bilateral low back pain, unspecified whether sciatica present] Episodic Sprains and strains (8 sources) Low back strain; Translations: [Strain of muscle, fascia and tendon of lower back, initial encounter] 08-26-2019 Episodic Substance-related disorders (1 source) Nicotine dependence, other tobacco product, uncomplicated; Translations: [Nicotine dependence, other tobacco product, uncomplicated] Onset: 4 Chronic Suicide and intentional self-inflicted injury (8 sources) Has access to planned means of suicide; Translations: [Suicidal ideations] 04-30-2023 Episodic Superficial injury; contusion (3 sources) Contusion of foot; Translations: [Contusion of right foot, initial encounter] Onset: 2 11-18-2021 Episodic Unclassified (7 sources) History of closure of ileostomy 06-15-2022 Unclassified (5 sources) Blood clot (morphologic abnormality) 09-16-2022 Unclassified (20 sources) [facility] Onset: 4 08-18-2024 Unclassified (20 sources) [facility] - [employer] Onset: 4 08-18-2024 Unclassified (6 sources) [employer] Onset: 5 03-25-2025 Unclassified (1 source) Class 3 severe obesity without serious comorbidity with body mass index (BMI) of 45.0 to 49.9 in adult, unspecified obesity type (HCC); Translations: [Class 3 severe obesity without serious comorbidity with body mass index (BMI) of 45.0 to 49.9 in adult, unspecified obesity type (HCC)] Onset: 5 Unclassified (1 source) Early Onset: 5 Urinary tract infections (20 sources) Acute cystitis; Translations: [Acute cystitis without hematuria] Episodic Past or Other Problems Problem Classification Problem Date Documented Da te Episodic/Chronic Biliary tract disease (2 sources) Cholelithiasis without obstruction; Translations: [Calculus of gallbladder without cholecystitis without obstruction] Onset: 4 09-17-2023 Episodic Conditions associated with dizziness or vertigo (6 sources) Dizziness; Translations: [Dizziness and giddiness] Onset: 4 09-28-2024 Episodic Contraceptive and procreative management (20 sources) Intrauterine contraceptive device in situ; Translations: [Patient encounter status] Onset: 9 Resolved: 4 11-27-2021 Episodic Diabetes mellitus without complication (20 sources) Abnormal glucose tolerance test; Translations: [Other abnormal glucose] Onset: 5 Resolved: 5 12-29-2024 Episodic Diabetes or abnormal glucose tolerance complicating ; childbirth; or the puerperium (20 sources) Gestational diabetes mellitus; Translations: [Gestational diabetes mellitus in , diet controlled] Onset: 5 Resolved: 5 12-30-2024 Episodic Neoplasms of unspecified nature or uncertain behavior (2 sources) Neoplasm of uncertain behavior of skin; Translations: [Neoplasm of uncertain behavior of skin] Onset: 7 01-22-2017 Episodic Nonmalignant breast conditions (4 sources) Bilateral discharge from nipples; Translations: [Nipple discharge] Onset: 4 11-27-2023 Episodic Nutritional deficiencies (20 sources) Vitamin D deficiency; Translations: [Vitamin D deficiency, unspecified] Onset: 9 Resolved: 5 12-16-2018 Chronic Other and unspecified benign neoplasm (20 sources) Hemangioma of liver; Translations: [Hemangioma of intra-abdominal structures] Onset: 3 09-16-2023 Episodic Other and unspecified benign neoplasm (1 source) Hemangioma of intra-abdominal structures; Translations: [Liver hemangioma] Onset: 3 Episodic Other circulatory disease (1 source) Hypotension, unspecified; Translations: [Hypotension, unspecified] Onset: 4 Episodic Other complications of (20 sources) Maternal obesity complicating , childbirth and the puerperium, antepartum; Translations: [Obesity complicating , second trimester] Onset: 3 Resolved: 5 09-19-2024 Chronic Other complications of (20 sources) History of gestational diabetes mellitus; Translations: [Supervision of with other poor reproductive or obstetric history, unspecified trimester] Onset: 4 Resolved: 5 07-25-2024 Episodic Other complications of (20 sources) High risk ; Translations: [Supervision of high risk , unspecified, second trimester] Onset: 4 Resolved: 5 09-19-2024 Episodic Other complications of (20 sources) Supervision of with other poor reproductive or obstetric history, unspecified trimester; Translations: [ with other poor obstetric history] Onset: 4 Resolved: 5 09-19-2024 Episodic Other complications of (2 sources) Decreased movements, third trimester, not applicable or unspecified; Translations: [Decreased movements, third trimester, not applicable or unspecified] Onset: 5 Episodic Other complications of (1 source) Vomiting of , unspecified; Translations: [Vomiting of , unspecified] Onset: 5 Episodic Other complications of (1 source) Injury, poisoning and certain other consequences of external causes complicating , second trimester; Translations: [Injury, poisoning and certain other consequences of external causes complicating , second trimester] Onset: 5 Episodic Other complications of (1 source) Diseases of the digestive system complicating , unspecified trimester; Translations: [Diseases of the digestive system complicating , unspecified trimester] Onset: 5 Episodic Other complications of (1 source) Supervision of high risk , unspecified, third trimester; Translations: [Supervision of high risk in third trimester (HCC)] Onset: 5 Episodic Other complications of (1 source) Supervision of high risk , unspecified, second trimester; Translations: [Supervision of high risk in second trimester] Onset: 4 Episodic Other endocrine disorders (20 sources) Polycystic ovary syndrome; Translations: [Polycystic ovarian syndrome] Onset: 3 Resolved: 5 09-24-2022 Chronic Other gastrointestinal disorders (20 sources) History of gastroesophageal reflux disease; Translations: [Personal history of other diseases of the digestive system] Onset: 9 Resolved: 5 12-16-2018 Episodic Other gastrointestinal disorders (1 source) Personal history of other diseases of the digestive system; Translations: [History of gastroesophageal reflux (GERD)] Onset: 9 Episodic Other inflammatory condition of skin (1 source) Erythema intertrigo; Translations: [Intertrigo] Onset: 4 Episodic Other lower respiratory disease (2 sources) Dyspnea on exertion; Translations: [Other forms of dyspnea] 01-28-2012 Episodic Other nutritional; endocrine; and metabolic disorders (20 sources) Obesity; Translations: [Obesity, unspecified] Onset: 8 Resolved: 4 Chronic Other nutritional; endocrine; and metabolic disorders (20 sources) Obese class II; Translations: [Obesity, unspecified] Onset: 3 Resolved: 3 07-06-2023 Chronic Other screening for suspected conditions (not mental disorders or infectious disease) (14 sources) Patient encounter status; Translations: [Encounter for screening for diabetes mellitus] Onset: 9 12-16-2018 Episodic Other skin disorders (2 sources) Epidermoid cyst of skin; Translations: [Sebaceous cyst] Onset: 7 01-08-2017 Episodic Other skin disorders (1 source) Excessive and redundant skin and subcutaneous tissue; Translations: [Excess skin] Onset: 4 Episodic Phlebitis; thrombophlebitis and thromboembolism (20 sources) Superficial vein thrombosis; Translations: [Acute embolism and thrombosis of superficial veins of right upper extremity] Onset: 2 Resolved: 4 Episodic Pulmonary heart disease (20 sources) H/O: pulmonary embolus; Translations: [Personal history of pulmonary embolism] Onset: 2 06-18-2022 Episodic Residual codes; unclassified (20 sources) Nicotine-filled electronic cigarette user; Translations: [Tobacco use] Onset: 3 10-01-2023 Episodic Residual codes; unclassified (1 source) Tobacco use; Translations: [Vapes nicotine containing substance] Onset: 3 Episodic Residual codes; unclassified (20 sources) History of fourth degree perineal laceration; Translations: [Personal history of other complications of , childbirth and the puerperium] Onset: 4 Resolved: 5 07-25-2024 Episodic Residual codes; unclassified (11 sources) History of closure of ileostomy; Translations: [Other specified postprocedural states] Onset: 5 Resolved: 5 03-28-2025 Episodic Residual codes; unclassified (11 sources) History of hernia repair; Translations: [Other specified postprocedural states] Onset: 5 Resolved: 5 03-28-2025 Episodic Residual codes; unclassified (1 source) 36 weeks gestation of ; Translations: [36 weeks gestation of (HCC)] Onset: 5 Episodic Residual codes; unclassified (1 source) 35 weeks gestation of ; Translations: [35 weeks gestation of (HCC)] Onset: 5 Episodic Residual codes; unclassified (1 source) 32 weeks gestation of ; Translations: [32 weeks gestation of (HCC)] Onset: 5 Episodic Residual codes; unclassified (1 source) 24 weeks gestation of ; Translations: [24 weeks gestation of ] Onset: 5 Episodic Residual codes; unclassified (1 source) Less than 8 weeks gestation of ; Translations: [7 weeks gestation of ] Onset: 4 Episodic Residual codes; unclassified (1 source) 8 weeks gestation of ; Translations: [8 weeks gestation of ] Onset: 4 Episodic Screening and history of mental health and substance abuse codes (20 sources) Ex-smoker; Translations: [Personal history of nicotine dependence] Onset: 9 Resolved: 5 12-16-2018 Episodic Unclassified (1 source) Problem Unclassified (8 sources) Ostomy patient problem; Translations: [Complication of ostomy] 09-16-2021 Unclassified (8 sources) Advice given; Translations: [ support offered] 06-29-2021 Unclassified (1 source) Patient encounter status 05-08-2025 Results Test Name Value Interpretation Reference Range Facility BACTERIAL VAGINOSIS NAATon 0 06-09-2025 Lactobacillus crispatus+gasseri+yumi senii + Gardnerella vaginalis + Atopobium vaginae rRNA SANJEEV+probe Ql (Vag fld) Not detected Normal Not detected [facility] Comment on above: Order Comment: Speci men Type: BLOOD SPECIMEN Ordering Facility: [facility] Address: [address] [place] [address] Performed By: #### 2 1198-7 #### [facility] CLIA [id number] [address] [place] [address] [place] Bacteria Ur Culton Bacteria identified Cx Nom (U) ORGANISM ID: 1 <10,000 CFU/ml Normal urogenital mark Normal [facility] Comment on above: Performed By: #### 6 30-4 ####[facility] [id number] [place] [address] [place] C. trachomatis+N. gonorrhoea e DNA SANJEEV+probe Ql (Unsp spec)on 06-09-2025 C. trachomatis rRNA SANJEEV+probe Ql (Unsp spec) Not detected Normal Not detected [facility] Comment on above: Order Comment: Speci men Type: BLOOD SPECIMEN Ordering Facility: [facility] Address: [address] [place] [address] Performed By: #### 2 1198-7 #### [facility] CLIA [id number] [address] [place] [address] [place] N. gonorrhoeae rRNA SANJEEV+probe Ql (Unsp spec) Not detected Normal Not detected [facility] Comment on above: Order Comment: Speci men Type: BLOOD SPECIMEN Ordering Facility: [facility] Address: [address] [place] [address] Performed By: #### 2 1198-7 #### [facility] CLIA [id number] [address] [place] [address] [place] JOJO/TRICHOMONAS NAATon 0 06-09-2025 C. glabrata RNA SANJEEV+probe Ql (Vag fld) Not detected Normal Not detected [facility] Comment on above: Order Comment: Speci men Type: SWABOrdering Facility: [facility] Address: [address] [place] [address] Performed By: #### C VTV ####[facility] [id number] [place] [address] [place] Jojo sp DNA SANJEEV+probe Ql (Vag fld) Not detected Normal Not detected [facility] Comment on above: Order Comment: Speci men Type: SWABOrdering Facility: [facility] Address: [address] [place] [address] Result Comment: The Jojo species group target includes C. albicans, C. tropicalis, C. parapsilosis, and C. dubliniensis. Performed By: #### C VTV ####[facility] [id number] [address] T. vaginalis DNA SANJEEV+probe Ql (Unsp spec) Not detected Normal Not detected [facility] Comment on above: Order Comment: Speci men Type: SWABOrdering Facility: [facility] Address: [address] [place] [address] Performed By: #### C VTV ####[facility] [id number] [address] OF [facility] CNOVon 06-09-2025 CNOV Office Visit (WOUCA) LEELEE ZAMORA ([id number]) 1995 F Date Time Provider Department 06/09/25 10:45 AM MAURO LOVE During your visit today, we recorded the following information about you: Temperature Pulse Respiration Blood pressure 97.9 degrees 90/minute 16/minute 128/72 Weight 116.6 kg Mauro Love PA 06/09/2025 10:52 AM Signed URGENT CARE VIRAL Subjective Leelee Saucedo Noah is a 30 year old female. Patient presents with: UTI STD HPI The patient is a 30-year-old female, 3 months , presenting with concerns of a possible UTI or infection, and requesting STD testing. Possible UTI or Infection: - Reports a burning sensation in the body cavity every morning upon waking. - Denies fever, emesis, or dysuria. - Observes a milky green discharge. - Denies abdominal pain. - No IUD placement yet; denies being on pelvic rest. - Denies concern for new . Review of Systems Constitutional: (-) fever Gastrointestinal: (-) vomiting Genitourinary: (+) pelvic burning sensation, (-) dysuria, (-) pelvic pain Objective BP 128/72 Pulse 90 Temp 36.6 ?C (97.9 ?F) (Tympanic) Resp 16 Wt 116.6 kg (257 lb 0.9 oz) LMP 05/03/2025 (Exact Date) SpO2 99% BMI 47.02 kg/m? Physical Exam General: Not in acute distress, normal appearance, well-developed, not toxic-appearing HEENT - Oropharynx: Mucous membranes moist, oropharynx clear, uvula midline Cardiovascular - Rate/Rhythm: Normal rate and regular rhythm - Heart Sounds: Normal heart sounds Pulmonary - Lung Sounds: Normal breath sounds - Respiratory Effort: Pulmonary effort normal Neurologic - Mental Status: Alert Skin: Skin warm and dry Abdomen soft and nontender no CVA tenderness Genitourinary - Deferred. Patient self swabs { 1. Screening for STD (sexually transmitted disease) (Z11.3) 2. Dysuria (R30.0) - No dysuria or fever reported; UA normal - Milky, green vaginal discharge noted; patient requests STD testing. - Urine culture ordered to rule out UTI. - Self-swab specimens collected for STD testing- gonorrhea, chlamydia, trichomonas, yeast and BV. - Results will be communicated via MyChart or phone within 1-2 days. Recording using [employer] software for draft documentation of the visit was discussed with the patient/authorized insurance sales representative; all questions welcomed and answered. Patient/authorized insurance sales representative agreed to proceed History and Record Review External record(s) reviewed: prior outpatient record. Differential Diagnoses - Vaginitis is more likely for the following reason(s): suggested by HANDP - UTI is less likely for the following reason(s): HANDP not suggestive and laboratory studies not suggestive Disposition The patient was discharged. Procedures Allergies As of Date: 06/09/2025 Noted Allergy Reaction PEANUT 07/22/2023 7 - Swelling CAT DANDER 07/22/2023 4 - Hives CRANBERRY 07/22/2023 2 - Rash HOUSE DUST 07/22/2023 4 - Hives MOLD 07/22/2023 5 - Intolerance MORPHINE 03/23/2017 14 - Other: See Comments Comments: Tightness in chest TREE NUTS 07/02/2022 2 - Rash Date Reviewed: 06/09/2025 Reviewed by: Kavya Pham MA - Fully Assessed Reason for Visit: UTI [116] STD [102] Primary Visit Diagnosis:Screening for STD (sexually transmitted disease) [Z11.3] Other Visit Diagnosis:Dysuria [R30.0] Order(s):GONORRHEA/CHLA MYDIA NAAT [SQGCCT] Order #: [id number]. #:[id number] JOJO/TRICHOMONAS NAAT [SQCVTV] Order #: [id number]. #:[id number] BACTERIAL VAGINOSIS NAAT [SQBVAMP] Order #: [id number]. #:[id number] UA DIP, URINE (POC) [[id number]] Order #: [id number] BACTERIAL CULTURE, URINE [SQURCUL] Order #: [id number]. #:[id number] UA DIP, URINE (POC) [[id number]] Order #: [id number]. #:[id number] 2-LAB Prescriptions as of 06/09/2025 - Phentermine HCl 37.5 mg capsule Take 1 capsule by mouth daily before breakfast for 90 days. Problem List As Of Date 06/09/2025 Noted Resolved Class 2 obesity without serious comorbidity wit*03/09/2018 12/07/2023 Vitamin D deficiency [E55.9] 12/16/2018 03/28/2025 SAMAN (generalized anxiety disorder) [F41.1] 12/16/2018 History of gastroesophageal reflux (GERD) [Z87.*12/16/2018 03/28/2025 Allergic rhinitis, unspecified [J30.9] 12/16/2018 Ex-smoker [Z87.891] 12/16/2018 03/28/2025 Psoriasis [L40.9] 12/16/2018 Encounter for insertion of mirena IUD [Z30.430] 12/16/2018 12/07/2023 Acute deep vein thrombosis (DVT) of popliteal v*02/202212/07/2023 IUD (intrauterine device) in place [Z97.5] 11/06/2022 12/07/2023 Polycystic ovary syndrome [E28.2] 12/17/2022 03/28/2025 Obesity, Class II, BMI 35-39.9 [E66.812] 07/02/2023 07/06/2023 Obesity complicating , second trimeste*07/06/2023 03/28/2025 Liver hemangioma [D18.03] 09/16/2023 Vapes nicotine containi (more content not included)... Normal [facility] UA DIP, URINE (POC)on 2024 BILIRUBIN UA (POCT) Negative Negative [facility] CLARITY UA (POCT) Clear [facility] COLOR UA (POCT) Yellow [facility] GLUCOSE UA (POCT) Negative Negative mg/dL [facility] Hemoglobin Ql (U) Negative Negative [facility] KETONE UA (POCT) Negative Negative mg/dL [facility] LEUKOCYTES UA (POCT) Negative Negative [facility] NITRITE UA (POCT) Negative Negative [facility] PH UA (POCT) 7.0 4.5 - 8.0 [facility] Protein Ql (U) Negative Negative mg/dL [facility] SPECIFIC GRAVITY UA (POCT) 1.020 1.005 - 1.030 [facility] UROBILINOGEN UA (POCT) 0.2 Normal E.U./dL [facility] Location:[address], [address] [place] [address] POINT OF CARE [facility] 25(OH)D3 Kyle-batsheva 2024 25-hydroxyvitamin D3 [Mass/Vol] 32.0 ng/mL Normal 31.0-80.0 [facility] Comment on above: Order Comment: Speci men Type: BLOOD SPECIMEN Ordering Facility: [facility] Address: [address] [place] [address] Performed By: #### 2 4323-8 #### [facility] CLIA [id number] [id number] [address] [place] Comprehensive metabolic 2000 panelon 06-05-2025 Albumin [Mass/Vol] 4.3 g/dL Normal 3.9-4.9 [facility] Comment on above: Order Comment: Speci men Type: BLOOD SPECIMENOrdering Facility: [facility] Address: [address] [place] [address] Performed By: #### 2 4323-8, 74741-7, 2131-9, 2275-4 ####[facility] [id number] [place] [id number] [place] ALP [Catalytic activity/Vol] 71 U/L Normal 34-123 [facility] Comment on above: Order Comment: Speci men Type: BLOOD SPECIMENOrdering Facility: [facility] Address: [address] [place] [address] Performed By: #### 2 4323-8, 72887-7, 9, 2275-4 ####[facility] [id number] [place] [id number] [place] ALT [Catalytic activity/Vol] 15 U/L Normal 7-38 [facility] Comment on above: Order Comment: Speci men Type: BLOOD SPECIMENOrdering Facility: [facility] Address: [address] [place] [address] Performed By: #### 2 4323-8, 14766-0, 2131-9, 2275-4 ####[facility] [id number] [place] [id number] [place] Anion gap [Moles/Vol] 12 mmol/L Normal 8-15 [facility] Comment on above: Order Comment: Speci men Type: BLOOD SPECIMENOrdering Facility: [facility] Address: [address] [place] [address] Performed By: #### 2 4323-8, 15045-1, 2131-9, 2275-4 ####[facility] [id number] [place] [id number] [place] AST [Catalytic activity/Vol] 11 U/L Low 13-35 [facility] Comment on above: Order Comment: Speci men Type: BLOOD SPECIMENOrdering Facility: [facility] Address: [address] [place] [address] Performed By: #### 2 4323-8, 94996-8, 2131-9, 2275-4 ####[facility] [id number] [place] [address] [place] Bilirubin [Mass/Vol] 0.9 mg/dL Normal 0.2-1.3 [facility] Comment on above: Order Comment: Speci men Type: BLOOD SPECIMENOrdering Facility: [facility] Address: [address] [place] [address] Performed By: #### 2 4323-8, 93448-6, 9, 2275-4 ####[facility] [id number] [place] [address] [place] Calcium [Mass/Vol] 9.3 mg/dL Normal 8.5-10.2 [facility] Comment on above: Order Comment: Speci men Type: BLOOD SPECIMENOrdering Facility: [facility] Address: [address] [place] [address] Performed By: #### 2 4323-8, 49595-0, 9, 2275-4 ####[facility] [id number] [place] [id number] [place] Chloride [Moles/Vol] 104 mmol/L Normal 98-107 [facility] Comment on above: Order Comment: Speci men Type: BLOOD SPECIMENOrdering Facility: [facility] Address: [address] [place] [address] Performed By: #### 2 4323-8, 52002-6, 2131-9, 2275-4 ####[facility] [id number] [address] [address] [place] CO2 [Moles/Vol] 23 mmol/L Normal 22-30 [facility] Comment on above: Order Comment: Speci men Type: BLOOD SPECIMENOrdering Facility: [facility] Address: [address] [place] [address] Performed By: #### 2 4323-8, 51713-5, 9, 2275-4 ####[facility] [id number] [place] [id number] [place] Creatinine [Mass/Vol] 0.60 mg/dL Normal 0.58-0.96 [facility] Comment on above: Order Comment: Speci men Type: BLOOD SPECIMENOrdering Facility: [facility] Address: [address] [place] [address] Performed By: #### 2 4323-8, 07595-3, 2132-06, 2276-01 ####[facility] [id number] [place] [id number] [place] eGFRcr SerPlBld CKD-EPI 2020 124 mL/min/1.73m??? Normal >=60 [facility] Comment on above: Order Comment: Speci men Type: BLOOD SPECIMENOrdering Facility: [facility] Address: [address] [place] [address] Result Comment: Kriss mated Glomerular Filtration Rate (eGFR) is calculated using the 2020 CKD-EPI creatinine equation. This equation utilizes serum creatinine, sex, and age as parameters. The creatinine assay has traceable calibration to isotope dilution-mass spectrometry. Refer to KDIGO guidelines for clinical interpretation. In patients with unstable renal function, e.g. those with acute kidney injury, the eGFR may not accurately reflect actual GFR. Performed By: #### 2 4323-8, 85381-2, 9, 2275-4 ####[facility] [id number] [address] [address] [place] Glucose [Mass/Vol] 83 mg/dL Normal 74-99 [facility] Comment on above: Order Comment: Speci men Type: BLOOD SPECIMENOrdering Facility: [facility] Address: [address] [place] [address] Result Comment: The [place] Diabetes Association (ADA) provides guidance for cutoff values for fasting glucose and random glucose. The ADA defines fasting as no caloric intake for at least 8 hours. Fasting plasma glucose results between 100 to 125 mg/dL indicate increased risk for diabetes (prediabetes). Fasting plasma glucose results greater than or equal to 126 mg/dL meet the criteria for diagnosis of diabetes. In the absence of unequivocal hyperglycemia, results should be confirmed by repeat testing. In a patient with classic symptoms of hyperglycemia or hyperglycemic crisis, random plasma glucose results greater than or equal to 200 mg/dL meet the criteria for diagnosis of diabetes. Reference: Standards of Medical Care in Diabetes 2016, [place] Diabetes Association. Diabetes Care. 2016.39(Suppl 1). Performed By: #### 2 4323-8, 69488-7, 9, 2275-4 ####[facility] [id number] [place] [address] [place] Potassium [Moles/Vol] 4.7 mmol/L Normal 3.7-5.1 [facility] Comment on above: Order Comment: Ivoni diogo Type: BLOOD SPECIMENOrdering Facility: [facility] Address: [address] [place] [address] Performed By: #### 2 4323-8, 27652-5, 9, 2275-4 ####[facility] [id number] [place] [id number] [place] Protein [Mass/Vol] 6.9 g/dL Normal 6.3-8.0 [facility] Comment on above: Order Comment: Speci men Type: BLOOD SPECIMENOrdering Facility: [facility] Address: [address] [place], [place] [address] Performed By: #### 2 4323-8, 52958-3, 9, 2275-4 ####[facility] [id number] [address] [address] [place] Sodium [Moles/Vol] 139 mmol/L Normal 136-144 [facility] Comment on above: Order Comment: Speci men Type: BLOOD SPECIMENOrdering Facility: [facility] Address: [address] [place] [address] Performed By: #### 2 4323-8, 05734-4, 9, 2275-4 ####[facility]IA [id number] [place] [id number] [place] Urea nitrogen [Mass/Vol] 10 mg/dL Normal 7-21 [facility] Comment on above: Order Comment: Speci men Type: BLOOD SPECIMENOrdering Facility: [facility] Address: [address] [place] [address] Performed By: #### 2 4323-8, 58325-2, 9, 2276-01 ####[facility] [id number] [place] [id number] [place] Ferritin SerPl-mCncon 2024 Ferritin [Mass/Vol] 13.7 ng/mL Low 14.7-205.[address] [facility] Comment on above: Order Comment: Speci men Type: BLOOD SPECIMENOrdering Facility: [facility] Address: [address] [place] [address] Performed By: #### 2 4323-8, 71258-7, 2132-06, 2276-01 ####[facility] [id number] [address] [address] [place] HbA1c (Bld)on 06-05-2025 Average glucose Estimated from glycated hemoglobin (Bld) [Mass/Vol] 97 mg/dL Normal [facility] Comment on above: Order Comment: Speci men Type: BLOOD SPECIMEN Ordering Facility: [facility] Address: [address] [place] [address] Result Comment: eAG: (Estimated average glucose) is a calculated value from HgbA1c and is insurance sales representative of the average blood glucose level in the last 2-3 month period. Performed By: #### 2 4323-8 #### [facility] CLIA [id number] [address] [place] [address] [place] HbA1c (Bld) [Mass fraction] 5.0 % Normal 4.3-5.6 [facility] Comment on above: Order Comment: Festus men Type: BLOOD SPECIMEN Ordering Facility: [facility] Address: [address] [place] [address] Result Comment: [place] Diabetes Association guidelines indicate that patients with HgbA1c in the range 5.7-6.4% are at increased risk for development of diabetes, and intervention by lifestyle modification may be beneficial. HgbA1c greater or equal to 6.5% is considered diagnostic of diabetes. Performed By: #### 2 4323-8 #### [facility] CLIA [id number] [address] [place] [address] [place] Iron and Iron binding capaci ty panelon 06-05-2025 Iron [Mass/Vol] 28 ug/dL Low 41-186 [facility] Comment on above: Order Comment: Festus lind Type: BLOOD SPECIMENOrdering Facility: [facility] Address: [address] [place] [address] Performed By: #### 2 4323-8, 96355-0, 2132-06, 4 ####[facility] [id number] [place] [address] [place] Iron binding capacity [Mass/Vol] 377 ug/dL Normal 232-386 [facility] Comment on above: Order Comment: Ivoni men Type: BLOOD SPECIMENOrdering Facility: [facility] Address: [address] [place] [address] Performed By: #### 2 4323-8, 88020-6, 9, 2275-4 ####[facility] [id number] [id number] [address] [place] Iron/TIBC [Molar ratio] 7.4 % Low 15.0-57.0 [facility] Comment on above: Order Comment: Speci men Type: BLOOD SPECIMENOrdering Facility: [facility] Address: [address] [place] [address] Performed By: #### 2 4323-8, 59798-6, 2-9, 6-4 ####[facility] [id number] [address] OF [facility] Vit B12 [facility] 025 Cobalamin (Vitamin B12) [Mass/Vol] 347 pg/mL Normal 232-1245 [facility] Comment on above: Order Comment: Speci men Type: BLOOD SPECIMENOrdering Facility: [facility] Address: [address] [place] [address] Performed By: #### 2 4323-8, 08548-8, 2131-9, 2275-4 ####[facility] [id number] [address] [place] CNPNon 05-08-2025 CNPN Telephone (OBGYWM) LEELEE ZAMORA ([id number]) 1995 F Date Time Provider Department 05/08/25 MARIETTA LUGO During your visit today, we recorded the following information about you: Terri Mcmillan 05/08/2025 4:19 PM Signed Patient is requesting IUD. Please assist in advice thank you Lenin Decker RN 05/08/2025 4:46 PM Signed See note below. Did you discuss this at her visit today? Order pending. TERRY Tam Trisha, RN 05/09/2025 10:02 AM Signed Mirena insertion order was filed under office visit encounter today. Linked to upcoming appt. Lenin Decker RN Allergies As of Date: 05/08/2025 Noted Allergy Reaction CAT DANDER 07/22/2023 4 - Hives CRANBERRY 07/22/2023 2 - Rash HOUSE DUST 07/22/2023 4 - Hives MOLD 07/22/2023 14 - Other: See Comments PEANUT 07/22/2023 7 - Swelling TREE NUTS 07/02/2022 2 - Rash MORPHINE 03/23/2017 14 - Other: See Comments Comments: Tightness in chest Date Reviewed: 05/08/2025 Reviewed by: Marietta Lugo MD - Fully Assessed Reason for Visit: Orders [681] Primary Visit Diagnosis:Encounter for contraceptive management, unspecified type [Z30.9] Problem List As Of Date 05/08/2025 Noted Resolved Class 2 obesity without serious comorbidity wit*03/09/2018 12/07/2023 Vitamin D deficiency [E55.9] 12/16/2018 03/28/2025 SAMAN (generalized anxiety disorder) [F41.1] 12/16/2018 History of gastroesophageal reflux (GERD) [Z87.*12/16/2018 03/28/2025 Allergic rhinitis, unspecified [J30.9] 12/16/2018 Ex-smoker [Z87.891] 12/16/2018 03/28/2025 Psoriasis [L40.9] 12/16/2018 Encounter for insertion of mirena IUD [Z30.430] 12/16/2018 12/07/2023 Acute deep vein thrombosis (DVT) of popliteal v*02/202212/07/2023 IUD (intrauterine device) in place [Z97.5] 11/06/2022 12/07/2023 Polycystic ovary syndrome [E28.2] 12/17/2022 03/28/2025 Obesity, Class II, BMI 35-39.9 [E66.812] 07/02/2023 07/06/2023 Obesity complicating , second trimeste*07/06/2023 03/28/2025 Liver hemangioma [D18.03] 09/16/2023 Vapes nicotine containing substance [Z72.0] 10/01/2023 Acute deep vein thrombosis (DVT) of right upper*10/01/2023 Supervision of high risk in third tri*08/18/2024 03/28/2025 History of maternal fourth degree perineal lace*08/18/2024 03/28/2025 Rectovaginal fistula [N82.3] 08/18/2024 History of gestational diabetes in prior pregna*09/19/2024 03/14/2025 History of forceps delivery in prior ,*09/19/2024 03/28/2025 Elevated glucose tolerance test [R73.09] 12/29/2024 03/28/2025 Diet controlled gestational diabetes mellitus (*12/30/2024 02/16/2025 Insulin controlled gestational diabetes mellitu*02/16/2025 05/08/2025 History of reversal of ileostomy [Z98.890] 03/23/2025 03/28/2025 S/P hernia repair [Z98.890, Z87.19] 03/23/2025 03/28/2025 Status post laparoscopic cholecystectomy [Z90.4*03/23/2025 03/28/2025 Term (HCC) [Z34.90] 03/23/2025 03/28/2025 care following delivery (HC*03/24/2025 03/28/2025 ABLA (acute blood loss anemia) [D62] 03/24/2025 En[facility] Status:[facility] HNO ID: [id number] Author: YOVANI RFY MD Service: Obstetrics Author Type: Nurse Practitioner Type: Discharge Summary Filed: 03/25/2025 10:40 Note Text: Attestation signed by Yovani Fry MD at 03/25/2025 10:40 AM [facility] Attending Addendum: Please see EMR for comprehensive details of management and counseling. Yovani Fry MD DISCHARGE SUMMARY OBSTETRICS PATIENT NAME: Leelee Zamora ADMISSION DATE: 03/23/2025 DISCHARGE DATE: 03/25/2025 Attending Physician: Yovani Fry MD Code Status: Not on file Treatment Team: Attending Provider: Yovani Fry MD Maternal Obstetric Provider: Tahmina Dumont Reason for Hospitalization: Intrauterine . Principal Problem: Term (HCC) (POA: Yes) Active Problems: SAMAN (generalized anxiety disorder) (POA: Yes) Obesity complicating , second trimester ([facility]) (POA: Yes) Acute deep vein thrombosis (DVT) of right upper extremity ([facility]) (POA: Yes) Supervision of high risk in third trimester ([facility]) (POA: Yes) History of maternal fourth degree perineal laceration, currently ([facility]) (POA: Yes) Rectovaginal fistula (POA: Yes) History of forceps delivery in prior , currently ([facility]) (POA: Yes) Insulin controlled gestational diabetes mellitus (GDM) in third trimester ([facility]) (POA: Yes) History of reversal of ileostomy (POA: Yes) S/P hernia repair (POA: Yes) Status post laparoscopic cholecystectomy (POA: Yes) care following delivery ([facility]) (POA: No) ABLA (acute blood loss anemia) (POA: No) Resolved Problems: * No resolved hospital problems. * PROCEDURES/SURGERY DURING HOSPITALIZATION: Delivery Summary: Leeroy Zamora [[id number]] Delivery Information: Delivery Date: 03/23/25 Delivery type: , Low Transverse Delivering Clinician: Yovani Fry MD [place]: Gender: Male Weight (grams): 3331 g One Minute : 8 Five Minute : 9 Procedures (if applicable) Recent Surgical Summary Past Procedures (02/23/2025 to Today) Date Procedure/Visit Type Providers Loc / Dept 03/23/2025 SECTION Yovani Fry (Primary)Anaid Ramirez [facility] Hospital Course: 29 year old female who is Postoperative Day #2 from delivery as noted above. Pt's peripartum course was complicated by Hx DVT (from postop ileostomy in 2021), GDMA2, SAMAN (no meds), Hx rectovaginal fistula, hx ileostomy with reversal, hx hernia repair, hx laparoscopic cholecystectomy and BMI 50. The PLTCS for Hx FAVD with 4th degree laceration and rectovaginal fistula was uncomplicated.Pt was started on Lovenox 40 mg SQ BID POD1 and was instructed to continue for 6 weeks. Pt was D/C'd on POD2 per request. Consulting Teams During Hospitalization: Anesthesiology. Social Work Patient Condition @ Discharge: Good Discharge Disposition: Home/Self Care Discharge Physical Exam: Heart: RR, S1, S2 Lungs: clear to auscultation Breasts: Nipples intact, Colostrom expressed, and Baby latching on Abdomen: Soft Bowel sounds present Fundus firm below umbilicus Non-distended Incision: prevena intact Extremities: No calf tenderness and Edema equal bilaterally Specific Concerns for Follow-up Post Discharge: Routine Care, Mental Health, Anemia, Incisional/Perineal Care, Maintenance of chronic medical problems, and Gestational Diabetes Mellitus Information Provided to Patient: Activity When You Leave the Hospital Gradually increase your activity level until back to normal at approximately 6 weeks post- (Walking and stairs as tolerated) May use stairs No baths for 6 weeks to allow the cervix to close (this includes swimming pools and hot tubs) No driving until you stop taking narcotic medicine and you are able to respond to adverse traffic conditions: Until you are not too sore to stop or turn quickly No lifting greater than 15 pounds for six weeks No walking restrictions Shower daily, towel or blow dry incision (low heat setting) Six Weeks Pelvic Rest - This means no sex, tampons, douching or any items in your vagina Diet Instructions Resume a regular diet with emphasis on healthy and iron rich foods. Nursing moms need 500 EXTRA calories a day to support breast milk production. Wound/Surgical Site Care Check your incision for signs of infection: redness, swelling, drainage Do not apply any lotions or powders near any incision Do not cover incision with any bandage Keep your incision clean and dry Steri-strips may fall off in the shower. If they have not fallen off on their own after 7 days from surgery, they should be removed. You are being sent home with steri-strips on your incision. You may shower. Pat incision dry and keep clean. You are being sent home (more content not included)... [facility] ANES POSTPROC EVALon 025 ANES POSTPROC EVAL HNO ID: [id number] Author: DANIEL ZAFAR MD Service: Anesthesiology Author Type: Anesthesiologist Type: Anesthesia Postprocedure Evaluation Filed: 03/24/2025 09:27 Note Text: POST ANESTHESIA EVALUATION NOTE : 1995 Procedure Summary Date: 03/23/25 Room / Location: [place] [address] / OB Anesthesia Start: 1134 Anesthesia Stop: 1338 Procedure: SECTION (Abdomen) Diagnosis: Insulin controlled gestational diabetes mellitus (GDM) in third trimester (HCC) (Insulin controlled gestational diabetes mellitus (GDM) in third trimester (HCC) [O24.414]) Surgeons: Yovani Fry MD Responsible Provider: Denis Barclay MD Anesthesia Type: CSE ASA Status: 3 Anesthesia Type: CSE Last Vitals Vitals Value Taken Time BP 102/45 03/24/25 0812 Temp 36.4 ?C (97.5 ?F) 03/24/25 0812 Pulse 56 03/24/25 0812 Resp 16 03/24/25 0812 SpO2 100 % 03/24/25 0812 Leeroy Zamora [[id number]] Baby Delivery: 03/23/2025 1219 Post Anesthesia Patient Status Patient Evaluation: bedside. Anticipated Disposition: inpatient floor planned admission. Neurological Status: aware and responsive. Pulmonary Status: breathing comfortably on room air Airway Control: returned to baseline unsupported. Cardiovascular Status: stable. Pain Management: clinically adequate - multimodal analgesia pain management approach Postoperative Hydration: acceptable. Intraoperative Events: no significant anesthesia events Recommendation: continue current plan of care and further care per PACU/ICU/floor team. Anesthesia Observations No Documentation SIGNATURE: Daniel Zafar MD PATIENT NAME: Leelee Zamora DATE: March 24, 2025 TIME: 9:09 AM CSN: [id number] Normal [facility] CBC panel Auto (Bld)on 03-24 Erythrocyte distribution width (RBC) [Ratio] 15.1 % High 11.5-15.0 [facility] Comment on above: Order Comment: Speci men Type: BLOOD SPECIMEN Ordering Facility: [facility] Address: [address] [place] [address] Performed By: #### 5 8410-2 #### [facility] CLIA [id number] [address] [place] [address] [facility] Hematocrit (Bld) [Volume fraction] 33.7 % Low 36.0-46.0 [facility] Comment on above: Order Comment: Speci men Type: BLOOD SPECIMEN Ordering Facility: [facility] Address: [address] [place] [address] Performed By: #### 5 8410-2 #### [facility] CLIA [id number] [address] [place] [address] [place] Hemoglobin (Bld) [Mass/Vol] 10.6 g/dL Low 11.5-15.5 [facility] Comment on above: Order Comment: Speci men Type: BLOOD SPECIMEN Ordering Facility: [facility] Address: [address] [place] [address] Performed By: #### 5 8410-2 #### [facility] CLIA [id number] [address] [place] [address] [place] MCH (RBC) [Entitic mass] 25.1 pg Low 26.0-34.0 [facility] Comment on above: Order Comment: Speci men Type: BLOOD SPECIMEN Ordering Facility: [facility] Address: [address] [place] [address] Performed By: #### 5 8410-2 #### [facility] CLIA [id number] [address] [place] [address] [place] MCHC (RBC) [Mass/Vol] 31.5 g/dL Normal 30.5-36.0 [facility] Comment on above: Order Comment: Speci men Type: BLOOD SPECIMEN Ordering Facility: [facility] Address: [address] [place] [address] Performed By: #### 5 8410-2 #### [facility] CLIA [id number] [address] [place] [address] [place] MCV (RBC) [Entitic vol] 79.9 fL Low 80.0-100.0 [facility] Comment on above: Order Comment: Speci men Type: BLOOD SPECIMEN Ordering Facility: [facility] Address: [address] [place] [address] Performed By: #### 5 8410-2 #### [facility] CLIA [id number] [address] [place] [address] [place] Nucleated RBC (Bld) [#/Vol] 10*3/uL Normal <0.01 [facility] Comment on above: Order Comment: Speci men Type: BLOOD SPECIMEN Ordering Facility: [facility] Address: [address] [place] [address] Performed By: #### 5 8410-2 #### [facility] CLIA [id number] [address] [place] [address] [place] Platelet mean volume (Bld) [Entitic vol] 8.6 fL Low 9.0-12.7 [facility] Comment on above: Order Comment: Speci men Type: BLOOD SPECIMEN Ordering Facility: [facility] Address: [address] [place] [address] Performed By: #### 5 8410-2 #### [facility] CLIA [id number] [address] [place] [address] [place] Platelets (Bld) [#/Vol] 329 10*3/uL Normal 150-400 [facility] Comment on above: Order Comment: Speci men Type: BLOOD SPECIMEN Ordering Facility: [facility] Address: [address] [place] [address] Performed By: #### 5 8410-2 #### [facility] CLIA [id number] [address] [place] [address] [place] RBC (Bld) [#/Vol] 4.22 10*6/uL Normal 3.90-5.20 [facility] Comment on above: Order Comment: Speci men Type: BLOOD SPECIMEN Ordering Facility: [facility] Address: [address] [place] [address] Performed By: #### 5 8410-2 #### [facility] CLIA [id number] [place] [address] [place] WBC (Bld) [#/Vol] 13.32 10*3/uL High 3.70-11.00 [facility] Comment on above: Order Comment: Speci men Type: BLOOD SPECIMEN Ordering Facility: [facility] Address: [address] [place] [address] Performed By: #### 5 8410-2 #### [facility] CLIA [id number] [place] ANES PRE-OPon 03-23-2025 ANES PRE-OP HNO ID: [id number] Author: CLAUDIO FLORIAN APRN.RESEARCH PSYCHOLOGIST Service: Anesthesiology Author Type: Nurse Barber Shop Operator Type: Anesthesia Preprocedure Evaluation Filed: 03/23/2025 11:14 Note Text: OB ANESTHESIA PRE-PROCEDURE ASSESSMENT PATIENT NAME: Leelee Zamora : 1995 Leelee is a 29yo presenting today for primary C/S indicated by previous GR4 tear 2/2 FAVD. Her PMH is significant for DVT, GERD (managed with prilosec and tums+ positional symptoms). Denies problems with GA. Plan CSE, r/b/a discussed. Due to morphine intolerance TAP block discussed, r/b/a discussed. [facility] ANES MATERIALS ANALYST: Previous OB anesthetic: epidural No OB anesthesia considerations Fourth degree tear FAVD gestational diabetes GERD: + symptoms Insulin dependent, last dose 2 days ago. Last check glucose 96. Relevant Problems CARDIO (+) Acute deep vein thrombosis (DVT) of right upper extremity (HCC) (+) Liver hemangioma -RENAL (+) Liver hemangioma NEURO-PSYCH (+) History of gastroesophageal reflux (GERD) (+) History of maternal fourth degree perineal laceration, currently (HCC) I - PHYSICAL EVALUATION AIRWAY Patient intubated: No. Tracheostomy tube not present Mallampati: III. TM distance: >3 FB. Neck ROM: full ROM without neurological symptoms. Mouth opening: adequate. Thick neck: no DENTAL Dental findings: teeth intact. Additional exam findings: yes. CARDIOVASCULAR Normal cardiovascular observations. PULMONARY Normal pulmonary observations. ABDOMINAL Additional exam notes: Gravid . BACK Normal back observations. II - ANESTHESIA PLAN ASA Score: 3 Anesthetic Plan: CSE The patient is not a current smoker. NPO Status: adequate Beta David Monitoring Plan Monitoring plan: standard ASA. Post Procedure Analgesic Plan Postoperative analgesic plan: multimodal analgesia and per surgical service. Informed Consent Anesthetic risks, benefits, alternatives, personnel and consent discussed: yes. Patient / Responsible Constitution Party agrees to proceed: yes Patient / Surrogate agrees to blood products: Yes Potential Anesthesia issues that may suggest increased risk of complications or contraindication to planned procedure: none. [facility] CHART REVIEW: ACTIVE PROBLEM LIST Vitamin D Deficiency Saman (Generalized Anxiety Disorder) History of Gastroesophageal Reflux (Gerd) Allergic Rhinitis, Unspecified Ex-Smoker Psoriasis Polycystic Ovary Syndrome Obesity Complicating , Second Trimester ([facility]) Liver Hemangioma Vapes Nicotine Containing Substance Acute Deep Vein Thrombosis (Dvt) of Right Upper Extremity ([facility]) Supervision of high risk in third trimester ([facility]) History of Maternal Fourth Degree Perineal Laceration, Currently ([facility]) Rectovaginal Fistula History of Forceps Delivery in Prior , Currently ([facility]) Elevated Glucose Tolerance Test Insulin Controlled Gestational Diabetes Mellitus (Gdm) in Third Trimester ([facility]) History of Reversal of Ileostomy S/P Hernia Repair Status Post Laparoscopic Cholecystectomy Term ([facility]) PAST MEDICAL HISTORY Diagnosis Date Acute deep vein thrombosis (DVT) of popliteal vein of right lower extremity ([facility]) 02/2022 ADHD (attention deficit hyperactivity disorder) Allergic rhinitis, unspecified 12/16/2018 Bowel obstruction ([facility]) 2022 Chlamydia Diabetes, gestational ([facility]) Encounter for insertion of Mirena IUD 12/24/2021 Ex-smoker 12/16/2018 Started at age 19 up to 1/2-1 PPD, quit 05/2018 SAMAN (generalized anxiety disorder) 12/16/2018 Seeing Klaus Gonzalez at the [facility] center. History of chlamydia 16 YO History of gastroesophageal reflux (GERD) 12/16/2018 History of maternal fourth degree perineal laceration, currently ([facility]) 08/18/2024 History of morbid obesity Infertility, female Menorrhagia 04/06/2020 had DX hysteroscopy and DANDC PCOS (polycystic ovarian syndrome) Psoriasis 12/16/2018 Vitamin D deficiency 12/16/2018 PAST SURGICAL HISTORY Procedure Laterality Date CYST EXCISION 2016 right leg DANDC, DIAG AND/OR THERAPEUTIC 2019 EXTRACTION, ERUPTED TOOTH OR EXPOSED ROOT (ELEVATION AND/OR FORCEPS REMOVAL) 2012 LAPS SURG CHOLECYSTECTOMY W/CHOLANGIOGRAPHY 10/14/2023 Dr. Macdonald LOCAL REVISION OF ILESTOMY 02/24/2022 LYSIS OF ADHESIONS 10/14/2023 Dr. Macdonald PAST SURGICAL HISTORY OF multiplr vaginoplasty- RV fistual after FAVD AND 4th degree REMOVAL GALLBLADDER 10/14/2023 REPAIR INCISIONAL HERNIA,REDUCIBLE incisional hernia and umbilical hernia repair FAMILY HISTORY Problem Relation Age of Onset Heart disease Mother arythmia Diabetes Father Hypertension Father No Known Problems Sister No Known Problems Sister Kidney Disease Maternal Grandmother other (lupus) Maternal Grandmother Stroke Maternal Grandmother Heart Attack Maternal Grandmother Blood Clots Maternal Grandmother No Kno (more content not included)... Normal [facility] HISTORY PHYSICALon HISTORY PHYSICAL HNO ID: [id number] Author: YOVANI FRY MD Service: Obstetrics Author Type: Resident Type: H&P Filed: 03/23/2025 11:23 Note Text: Attestation signed by Yovani Fry MD at 03/23/2025 11:23 AM [facility] Attending Addendum: I have seen, evaluated and counseled the above patient with Dr. Ramirez and the antepartum team. I reviewed the documentation and agree with the clinical assessment and medical decision making as noted above with the following addendum/modifications: 29 year old at 38w5d presenting for scheduled primary CD. Her medical and OB history are notable for a history of FAVD with 4th degree perineal laceration complicated by delayed wound healing, RV fistula, and surgical repair with diverting ileostomy (s/p reversal). Patient also with hernia at stoma site and umbilicus repaired with mesh (reports single piece of mesh covering both umbilical and stoma sites). Her history is also notable for a postoperative DVT following her ileostomy, and she has a history of class 3 obesity (BMI 50) and anxiety (stable off therapy). course is notable for GDMA2 (insulin) and has otherwise been uncomplicated with risk-reducing NIPS, a normal anatomic survey, and AGA growth. Remainder of history as above. On admission, AF and VS stable. Mucous membranes moist, sclerae anicteric. Cardiopulmonary exam non-focal. Abdomen soft/obese, non-distended, uterus/abdomen non-tender, no rebound. Ileostomy site at RUQ (at/just above level of umbilicus). Extremities non-tender, trace edema. NST reactive and tocometer without regular uterine contractions. Blood sugar on arrival was 96, CBC with Hgb 11.6. Reviewed plan for primary CD and discussed the risks/benefits and alternatives. The risks of the planned surgical procedure were reviewed including bleeding, infection, injury to adjacent organs (bowel, bladder, ureter, others), transfusion. All questions were addressed and operative informed consent was obtained. Reviewed plan for pharmacologic VTE prophylaxis (6 weeks). To OR when anesthesia/nursing teams and OR ready/available. The plan of care was reviewed and discussed with the patient and the provider/nursing teams. All questions answered. Ms. Zamora expressed understanding and agreement with the plan of care. Yovani Fry MD OBSTETRICS HISTORY AND PHYSICAL SERVICE DATE: 03/23/2025 SERVICE TIME: 10:21 AM Subjective Patient's stated reason for arrival: to have a baby CHIEF COMPLAINT: scheduled CS HISTORY OF THE PRESENT ILLNESS: The patient is a 29 y/o , who is at 38w5d. Patient is here for a scheduled section for history of 4th degree laceration c/b rectovaginal fistula. Good movement. Denies vaginal bleeding., C/O of occasional contractions., Denies leaking of fluid. . POST DELIVERY CONTRACEPTION: Patient does not desire post-delivery contraception. HISTORY: PAST MEDICAL HISTORY Diagnosis Date Acute deep vein thrombosis (DVT) of popliteal vein of right lower extremity ([facility]) 02/2022 ADHD (attention deficit hyperactivity disorder) Allergic rhinitis, unspecified 12/16/2018 Bowel obstruction ([facility]) 2022 Chlamydia Diabetes, gestational ([facility]) Encounter for insertion of Mirena IUD 12/24/2021 Ex-smoker 12/16/2018 Started at age 19 up to 1/2-1 PPD, quit 05/2018 SAMAN (generalized anxiety disorder) 12/16/2018 Seeing Klaus Gonzalez at the [facility] center. History of chlamydia 16 YO History of gastroesophageal reflux (GERD) 12/16/2018 History of maternal fourth degree perineal laceration, currently ([facility]) 08/18/2024 History of morbid obesity Infertility, female Menorrhagia 04/06/2020 had DX hysteroscopy and DANDC PCOS (polycystic ovarian syndrome) Psoriasis 12/16/2018 Vitamin D deficiency 12/16/2018 PAST SURGICAL HISTORY Procedure Laterality Date CYST EXCISION 2016 right leg DANDC, DIAG AND/OR THERAPEUTIC 2019 EXTRACTION, ERUPTED TOOTH OR EXPOSED ROOT (ELEVATION AND/OR FORCEPS REMOVAL) 2012 LAPS SURG CHOLECYSTECTOMY W/CHOLANGIOGRAPHY 10/14/2023 Dr. Macdonald LOCAL REVISION OF ILESTOMY 02/24/2022 LYSIS OF ADHESIONS 10/14/2023 Dr. Macdonald PAST SURGICAL HISTORY OF multiplr vaginoplasty- RV fistual after FAVD AND 4th degree REMOVAL GALLBLADDER 10/14/2023 REPAIR INCISIONAL HERNIA,REDUCIBLE incisional hernia and umbilical hernia repair FAMILY HISTORY Problem Relation Age of Onset Heart disease Mother arythmia Diabetes Father Hypertension Father No Known Problems Sister No Known Problems Sister Kidney Disease Maternal Grandmother other (lupus) Maternal Grandmother Stroke Maternal Grandmother Heart Attack Maternal Grandmother Blood Clots Maternal Grandmother No Known Problems Maternal Grandfather Col (more content not included)... [facility] OPERATIVE NOon 03-23-2025 OPERATIVE NO HNO ID: [id number] Author: YOVANI FRY MD Service: Obstetrics Author Type: Resident Type: Operative Report Filed: 03/23/2025 14:45 Note Text: Attestation with edits by Yovani Fry MD at 03/23/2025 2:45 PM I was present, scrubbed, and operating throughout this uncomplicated primary LTCD. To recovery in stable condition. The operative course and findings were reviewed with the patient and all questions were addressed. Yovani Fry MD OB OPERATIVE/PROCEDURE REPORT LOG ID: [id number] Surgery/Procedure Date: 03/23/2025 Incision/Procedure Start Time: 12:16 PM Incision Close/Procedure End Time: 12:46 PM Surgeon(s)/Proceduralis t(s) and Supervisor [employer](s): Surgeons and Role: * Yovani Fry MD - Primary * Anaid Ramirez DO - Resident - Assisting No Additional Staff Informed Consent: Informed Consent obtained and on the chart Procedure: Section Gestational Age at Delivery: 38w5d Reason for Delivery Today: PRIMARY Reason for Delivery : Scheduled Section Additional Clinical Indicator(s) for delivery: N/A Delivery type: , Low Transverse Intrapartum Complications: None Delivery between 22w0d - 36w6d?: No Indications for : Prior Pelvic Floor Injury/Surgery Additional Pre-Op Details (if applicable): Roach gestation at 38w5d History of FAVD with 4th degree perineal laceration complicated by delayed wound healing, RV fistula, and surgical repair with diverting ileostomy (s/p reversal) - desires primary CD Hernia at stoma site and umbilicus repaired with mesh Class 3 obesity (BMI 50) GDMA2 (insulin) History of DVT (following ileostomy) Postop Diagnosis: Same as pre-op diagnosis Procedures and Anesthesia: Procedure(s) and Anesthesia Type: * SECTION - Spinal Information for the patient's : Leeroy Zamora [[id number]] Type: , Low Transverse Operative Findings: Weight: 3.331 kg (7 lb 5.5 oz) (Filed from Delivery Summary) Sex: male One Minute : 8 Five Minute : 9 Cord Complications: None Additional Findings: Normal uterus, tubes, and ovaries Fetus in cephalic presentation Low transverse hysterotomy No significant subcutaneous or intraperitoneal adhesive disease TECHNIQUE: The patient was taken to the operating room where spinal anesthesia was administered and found to be adequate. She was placed in the dorsal supine position with a left tilt. SCD's were placed for VTE prophylaxis. A Fowler catheter was placed under sterile conditions. She was prepped and draped in the usual sterile fashion for abdominal surgery. Perioperative antibiotic prophylaxis was administered. The abdomen was entered with a Pfannenstiel incision without difficulty. When sufficient space was present for delivery, the bladder blade was then introduced. A low transverse hysterotomy was made with the scalpel and extended digitally. The amniotic sac was ruptured with an Allis clamp and clear fluid was present. The vertex was elevated and delivered atraumatically and without difficulty followed by the remainder of the in the usual fashion. Delayed cord clamping was performed for ~30 seconds. The cord was clamped and cut and the was delivered to the awaiting Pediatrics team. The placenta was expressed and was noted to be complete, intact, with 3 vessel cord and no gross abnormalities. The uterus was then exteriorized and cleared of clots using moist laparotomy tapes. The hysterotomy was closed using a running locked suture of 0-vicryl in a single layer. After hysterotomy closure, excellent hemostasis was noted. The uterus was returned to the abdomen. The gutters were cleared with moist laparotomy tapes. The hysterotomy repair was reinspected and noted to be hemostatic. All subfascial tissues were inspected and noted to be hemostatic. The fascia was closed with looped 0 PDS in a running fashion. The subcutaneous tissue was irrigated and made hemostatic the bovie. The subcutaneous tissue was closed with a running suture of 3-0 Vicryl. The skin was closed with 4-0 Monocryl in a running fashion. The patient tolerated the procedure well. Sponge, lap and needle counts were correcttimes two. The patient was taken to the recovery room in stable condition. Sign out was performed. Dr. Fry was present, scrubbed, and operating throughout. SPECIMEN: Cord blood specimen and Cord pH I/O Blood Loss per time range on right. Intrapartum AND : 03/23/25 1131 - 03/23/25 1405 Delivery Admission: 03/23/25 0909 - 03/23/25 1405 Intrapartum AND Delivery Admission Calculated Blood Loss (mL) Hospital Encounter 819 819 Total 819 cc 819 cc URINE OUTPUT: 75 mL IV FLUIDS: 1100 mL crystalloid Implantab (more content not included)... Normal [facility] CBC W Auto Differential pane l (Bld)on 03-22-2025 Basophils (Bld) [#/Vol] 10*3/uL Normal <0.11 [facility] Comment on above: Order Comment: Speci men Type: BLOOD SPECIMEN Ordering Facility: [facility] Address: [address] [place] [address] Performed By: #### 2 1198-7 #### [facility] CLIA [id number] [address] [place] [address] [place] Basophils/100 WBC (Bld) 0.2 % Normal [facility] Comment on above: Order Comment: Speci men Type: BLOOD SPECIMEN Ordering Facility: [facility] Address: [address] [place] [address] Performed By: #### 2 1198-7 #### [facility] CLIA [id number] [address] [place] [address] [place] Differential cell count method Nom (Bld) Auto Normal [facility] Comment on above: Order Comment: Speci men Type: BLOOD SPECIMEN Ordering Facility: [facility] Address: [address] [place] [address] Performed By: #### 2 1198-7 #### [facility] CLIA [id number] [address] [place] [address] [place] Eosinophils (Bld) [#/Vol] 0.06 10*3/uL Normal <0.46 [facility] Comment on above: Order Comment: Speci men Type: BLOOD SPECIMEN Ordering Facility: [facility] Address: [address] [place] [address] Performed By: #### 2 1198-7 #### [facility] CLIA [id number] [address] [place] [address] [place] Eosinophils/100 WBC (Bld) 0.7 % Normal [facility] Comment on above: Order Comment: Speci men Type: BLOOD SPECIMEN Ordering Facility: [facility] Address: [address] [place] [address] Performed By: #### 2 1198-7 #### [facility] CLIA [id number] [address] [place] [address] [place] Erythrocyte distribution width (RBC) [Ratio] 15.3 % High 11.5-15.0 [facility] Comment on above: Order Comment: Speci men Type: BLOOD SPECIMEN Ordering Facility: [facility] Address: [address] [place] [address] Performed By: #### 2 1198-7 #### [facility] CLIA [id number] [address] [place] [address] [place] Hematocrit (Bld) [Volume fraction] 35.3 % Low 36.0-46.0 [facility] Comment on above: Order Comment: Speci men Type: BLOOD SPECIMEN Ordering Facility: [facility] Address: [address] [place] [address] Performed By: #### 2 1198-7 #### [facility] CLIA [id number] [address] [place] [address] [place] Hemoglobin (Bld) [Mass/Vol] 11.6 g/dL Normal 11.5-15.5 [facility] Comment on above: Order Comment: Speci men Type: BLOOD SPECIMEN Ordering Facility: [facility] Address: [address] [place] [address] Performed By: #### 2 1198-7 #### [facility] CLIA [id number] [address] [place] [address] [place] Immature granulocytes (Bld) [#/Vol] 0.06 10*3/uL Normal <0.10 [facility] Comment on above: Order Comment: Speci men Type: BLOOD SPECIMEN Ordering Facility: [facility] Address: [address] [place] [address] Performed By: #### 2 1198-7 #### [facility] CLIA [id number] [address] [place] [address] [place] Immature granulocytes/100 WBC (Bld) 0.7 % Normal [facility] Comment on above: Order Comment: Speci men Type: BLOOD SPECIMEN Ordering Facility: [facility] Address: [address] [place] [address] Performed By: #### 2 1198-7 #### [facility] CLIA [id number] [address] [place] [address] [place] Lymphocytes (Bld) [#/Vol] 1.81 10*3/uL Normal 1.00-4.00 [facility] Comment on above: Order Comment: Speci men Type: BLOOD SPECIMEN Ordering Facility: [facility] Address: [address] [place] [address] Performed By: #### 2 1198-7 #### [facility] CLIA [id number] [address] [place] [address] [place] Lymphocytes/100 WBC (Bld) 20.8 % Normal [facility] Comment on above: Order Comment: Speci men Type: BLOOD SPECIMEN Ordering Facility: [facility] Address: [address] [place] [address] Performed By: #### 2 1198-7 #### [facility] CLIA [id number] [address] [place] [address] [place] MCH (RBC) [Entitic mass] 26.0 pg Normal 26.0-34.0 [facility] Comment on above: Order Comment: Speci men Type: BLOOD SPECIMEN Ordering Facility: [facility] Address: [address] [place] [address] Performed By: #### 2 1198-7 #### [facility] CLIA [id number] [address] [place] [address] [place] MCHC (RBC) [Mass/Vol] 32.9 g/dL Normal 30.5-36.0 [facility] Comment on above: Order Comment: Speci men Type: BLOOD SPECIMEN Ordering Facility: [facility] Address: [address] [place] [address] Performed By: #### 2 1198-7 #### [facility] CLIA [id number] [address] [place] [address] [place] MCV (RBC) [Entitic vol] 79.0 fL Low 80.0-100.0 [facility] Comment on above: Order Comment: Speci men Type: BLOOD SPECIMEN Ordering Facility: [facility] Address: [address] [place] [address] Performed By: #### 2 1198-7 #### [facility] CLIA [id number] [address] [place] [address] [place] Monocytes (Bld) [#/Vol] 0.55 10*3/uL Normal <0.87 [facility] Comment on above: Order Comment: Speci men Type: BLOOD SPECIMEN Ordering Facility: [facility] Address: [address] [place] [address] Performed By: #### 2 1198-7 #### [facility] CLIA [id number] [address] [place] [address] [place] Monocytes/100 WBC (Bld) 6.3 % Normal [facility] Comment on above: Order Comment: Speci men Type: BLOOD SPECIMEN Ordering Facility: [facility] Address: [address] [place] [address] Performed By: #### 2 1198-7 #### [facility] CLIA [id number] [address] [place] [address] [place] Neutrophils (Bld) [#/Vol] 6.19 10*3/uL Normal 1.45-7.50 [facility] Comment on above: Order Comment: Speci men Type: BLOOD SPECIMEN Ordering Facility: [facility] Address: [address] [place] [address] Performed By: #### 2 1198-7 #### [facility] CLIA [id number] [address] [place] [address] [place] Neutrophils/100 WBC (Bld) 71.3 % Normal [facility] Comment on above: Order Comment: Speci men Type: BLOOD SPECIMEN Ordering Facility: [facility] Address: [address] [place] [address] Performed By: #### 2 1198-7 #### [facility] CLIA [id number] [address] [place] [address] [place] Nucleated RBC (Bld) [#/Vol] 10*3/uL Normal <0.01 [facility] Comment on above: Order Comment: Speci men Type: BLOOD SPECIMEN Ordering Facility: [facility] Address: [address] [place] [address] Performed By: #### 2 1198-7 #### [facility] CLIA [id number] [address] [place] [address] [place] Nucleated RBC/100 WBC (Bld) [Ratio] 0.0 /100 WBC Normal [facility] Comment on above: Order Comment: Speci men Type: BLOOD SPECIMEN Ordering Facility: [facility] Address: [address] [place] [address] Performed By: #### 2 1198-7 #### [facility] CLIA [id number] [address] [place] [address] [place] Platelet mean volume (Bld) [Entitic vol] 8.8 fL Low 9.0-12.7 [facility] Comment on above: Order Comment: Speci men Type: BLOOD SPECIMEN Ordering Facility: [facility] Address: [address] [place] [address] Performed By: #### 2 1198-7 #### [facility] CLIA [id number] [address] [place] [address] [place] Platelets (Bld) [#/Vol] 335 10*3/uL Normal 150-400 [facility] Comment on above: Order Comment: Speci men Type: BLOOD SPECIMEN Ordering Facility: [facility] Address: [address] [place] [address] Performed By: #### 2 1198-7 #### [facility] CLIA [id number] [address] [place] [address] [place] RBC (Bld) [#/Vol] 4.47 10*6/uL Normal 3.90-5.[address] [facility] Comment on above: Order Comment: Speci men Type: BLOOD SPECIMEN Ordering Facility: [facility] Address: [address] [place] [address] Performed By: #### 2 1198-7 #### [facility] CLIA [id number] [address] [place] [address] [place] WBC (Bld) [#/Vol] 8.69 10*3/uL Normal 3.70-11.[address] [facility] Comment on above: Order Comment: Speci men Type: BLOOD SPECIMEN Ordering Facility: [facility] Address: [address] [place] [address] Performed By: #### 2 1198-7 #### [facility] CLIA [id number] [address] [place] [address] [place] Reagin and Treponema pallidu m IgG and IgM [Interp]on 03-22-2025 T. pallidum IgG+IgM IA Ql (S) Non-Reactive Normal Nonreactive [facility] Comment on above: Order Comment: Speci men Type: BLOOD SPECIMEN Ordering Facility: [facility] Address: [address] [place] [address] Performed By: #### 2 4323-8 #### [facility] CLIA [id number] [address] [place] [address] [place] Reagin+T pallidum IgG+IgM Se rPl-Impon 03-22-2025 Reagin and Treponema pallidum IgG and IgM [Interp] Cannot exclude recent Treponemal infection if specimen collected within 7-10 days after appearance of suspect lesions or 2-3 weeks after an exposure. Clinical correlation is required. Normal [facility] Comment on above: Order Comment: Speci men Type: BLOOD SPECIMEN Ordering Facility: [facility] Address: [address] [place] [address] Performed By: #### 2 4323-8 #### [facility] CLIA [id number] [address] [place] [address] [place] TYPE + SCREEN PRENATALon ABO A Normal [facility] Comment on above: Order Comment: Speci men Type: BLOOD SPECIMENOrdering Facility: [facility] Address: [address] [place] [address] Performed By: #### T SPN ####[facility] [id number] [place] [address] [place] Rh Nom (Bld) Positive Normal [facility] Comment on above: Order Comment: Speci men Type: BLOOD SPECIMENOrdering Facility: [facility] Address: [address] [place] [address] Performed By: #### T SPN ####[facility] [id number] [place] [address] [place] TYPE AND SCREEN EXPIRATION 03/25/2025 23:59 Normal [facility] Comment on above: Order Comment: Speci men Type: BLOOD SPECIMENOrdering Facility: [facility] Address: [address] [place] [address] Performed By: #### T SPN ####[facility] [id number] CAMILA MURILLO [id number] OF [facility] Padma 03-21-2025 CNPN Telephone (OBGYWM) LEELEE ZAMORA ([id number]) 1995 F Date Time Provider Department 03/21/25 TAHMINA DUMONT OBGYWM During your visit today, we recorded the following information about you: Lenin Decker RN 03/21/2025 3:42 PM Signed Received call from [facility]. Patient is scheduled for 03/23/25 and they are requesting CBC, Type and screen and syphilis to be ordered for her to have done prior to surgery date. Once orders are filed they will contact patient to have them done. Please file. TERRY Tam Renee, APRN.CNP 03/21/2025 3:52 PM Signed Orders filed. Jammie Funes APRN.CNP Allergies As of Date: 03/21/2025 Noted Allergy Reaction CAT DANDER 07/22/2023 4 - Hives CRANBERRY 07/22/2023 2 - Rash HOUSE DUST 07/22/2023 4 - Hives MOLD 07/22/2023 14 - Other: See Comments PEANUT 07/22/2023 7 - Swelling TREE NUTS 07/02/2022 2 - Rash MORPHINE 03/23/2017 14 - Other: See Comments Comments: Tightness in chest Date Reviewed: 03/21/2025 Reviewed by: Michelle Mcgee MA - Fully Assessed Reason for Visit: Orders [681] Primary Visit Diagnosis:38 weeks gestation of (HCC) [Z3A.38] Other Visit Diagnosis:Supervision of high risk in third trimester (HCC) [O09.93] Order(s):ANEMIA REFLEX PANEL [SQCBCARP] Order #: [id number] FUTURE SYPHILIS TREPONEMAL W/REFLEX [SQSYPHTX] Order #: [id number] FUTURE TYPE + SCREEN [SQTSPN] Order #: [id number] FUTURE Prescriptions as of 03/21/2025 - insulin NPH subcutaneous pen Inject 12units in evening and 14units in morning - Blood-Glucose Meter Use as directed to check glucose levels up to seven times daily. - blood sugar diagnostic test strip Use as directed to check glucose levels up to seven times daily. - Lancets Use as directed to check glucose levels up to seven times daily. - alcohol swabs (ALCOHOL PREP PADS) Use as directed to check glucose levels up to seven times daily. - aspirin, enteric coated (ECOTRIN LOW STRENGTH) 81 mg EC tablet Take 1 tablet by mouth once daily. - PNV 563-sirap-qcsxe-3-fish oil 400-32.5 mcg-mg chew Problem List As Of Date 03/21/2025 Noted Resolved Class 2 obesity without serious comorbidity wit*03/09/2018 12/07/2023 Vitamin D deficiency [E55.9] 12/16/2018 SAMAN (generalized anxiety disorder) [F41.1] 12/16/2018 History of gastroesophageal reflux (GERD) [Z87.*12/16/2018 Allergic rhinitis, unspecified [J30.9] 12/16/2018 Ex-smoker [Z87.891] 12/16/2018 Psoriasis [L40.9] 12/16/2018 Encounter for insertion of mirena IUD [Z30.430] 12/16/2018 12/07/2023 Acute deep vein thrombosis (DVT) of popliteal v*02/202212/07/2023 IUD (intrauterine device) in place [Z97.5] 11/06/2022 12/07/2023 Polycystic ovary syndrome [E28.2] 12/17/2022 Obesity, Class II, BMI 35-39.9 [E66.812] 07/02/2023 07/06/2023 Obesity complicating , second trimeste*07/06/2023 Liver hemangioma [D18.03] 09/16/2023 Vapes nicotine containing substance [Z72.0] 10/01/2023 Acute deep vein thrombosis (DVT) of right upper*10/01/2023 Supervision of high risk in second tr*08/18/2024 History of maternal fourth degree perineal lace*08/18/2024 Rectovaginal fistula [N82.3] 08/18/2024 History of gestational diabetes in prior pregna*09/19/2024 03/14/2025 History of forceps delivery in prior ,*09/19/2024 Elevated glucose tolerance test [R73.09] 12/29/2024 Diet controlled gestational diabetes mellitus (*12/30/2024 02/16/2025 Insulin controlled gestational diabetes mellitu*02/16/2025 Encounter Status:Closed by LENIN DECKER on 03/21/25 Normal [facility] URINE OB DIP B/Oon 5 Glucose Ql (U) Negative Neg mg/dL [facility] Interpretation and review of laboratory results Normal [facility] Protein.monoclonal (U) [Mass/Vol] Negative Neg mg/dL [facility] URINE OB DIP B/Oon 5 Glucose Ql (U) Negative Neg mg/dL [facility] Interpretation and review of laboratory results Normal [facility] Protein.monoclonal (U) [Mass/Vol] Negative Neg mg/dL [facility] Examination level ultrasound on 03-07-2025 [facility] Radiology Study observation (narrative) [facility] ROUTINE, GROUP B ST REPTOCOCCUS BY PCRon 03-07-2025 ROUTINE, GROUP B STREPTOCOCCUS BY PCR Not detected Normal [facility] Comment on above: Performed By: #### G BPCR ####[facility] [id number] [place] [address] [place] URINE OB DIP B/Oon 5 Glucose Ql (U) Negative Neg mg/dL [facility] Protein.monoclonal (U) [Mass/Vol] Negative Neg mg/dL [facility] OB Triage Physician Noteon 0 03-03-2025 OB Triage Physician Note [facility] Medical Records Department [address] [place] [id number] OB Triage Physician Note 03/03/25 0807 MR#: [id number] Acct: [id number] Name: LEELEE ZAMORA Rep #: [id number] : 1995 29 From: Marietta Lugo MD PCP: Dr. Alfredo Barroso MD Status:DEP CLI Y Location: [facility] HPI - General General Date of Admission: 03/02/25 Date of Service: 03/02/25 Chief Complaint: CHO, decreased movement, lower abd pain HPI Narrative LEELEE ZAMORA, is a 29 F who presents with a headache, RLQ pain and decreased movement. No LOF no bleeding. HX of ileostomy since last delivery. Reactive NST with improved movement. CHO better with Tylenol and Benadryl. Labs normal. BP normal. Maternal Data Information Final MJ: 04/01/25 Gestational age: 35+5 PFSH PFSH Medical History Hypotension Dizziness Vitamin D deficiency PCOS (polycystic ovarian syndrome) Obesity GERD (gastroesophageal reflux disease) Hx of deep venous thrombosis History of post traumatic stress disorder SBO (small bowel obstruction) Endometritis Chronic pain Post traumatic stress disorder (PTSD) ADHD (attention deficit hyperactivity disorder) Anxiety Home Medications ???Medication ???Instructions ???Recorded ???Last Taken ???Type aspirin 81 mg tablet,delayed 81 mg PO QDAY 09/28/24 01/04/25 Hi story release vitamin no.102-iron 90 1 cap PO QDAY 09/28/24 01/04/25 Hi story mg-folate 1 mg-dha 200 mg capsule Allergy/AdvReac Type Severity Reaction Status Date / Time cat dander Allergy Hives Verified 02/09/25 18:16 house dust Allergy Hives Verified 02/09/25 18:16 peanut Allergy Swelling Verified 02/09/25 18:16 cranberry AdvReac Rash Verified 02/09/25 18:16 mold AdvReac Other Verified 02/09/25 18:16 morphine AdvReac Chest Verified 02/09/25 18:16 tightness Family History Aunt Cancer maternal aunt - uterine/cervical ca Mother Heart disease Father Diabetes Hypertension Grandmother Kidney disease CVA (cerebral vascular accident) Myocardial infarction CAD (coronary artery disease) Diabetes Hypertension Surgical History Hx laparoscopic cholecystectomy Dehiscence of perineal wound Fourth degree perineal laceration History of gynecologic surgery Social History Smoking Status: Former smoker alcohol intake: current alcohol intake frequency: a few times a week Alcohol type: beer substance use type: does not use History 2 Elective abortions Hx Para 1 Spontaneous abortions Hx # Term Pregnancies Ectopic pregnancies Hx # Pregnancies Multiple births # of living children NST FHR Rate Baby A Baseline: 140 Variability:: Moderate Accelerations:: 15 x 15 Decelerations:: None NST Reactive:: Yes Assessment Plan (1) Decreased movement affecting management of mother, antepartum: QUALIFIERS: Fetus number: single or unspecified fetus Qualified Code(s): O36.8190 - Decreased movements, unspecified trimester, not applicable or unspecified (2) Abdominal pain affecting , antepartum: (3) Headache in , antepartum: (4) 35 weeks gestation of : PLAN: Plan Discharge home with improved symptoms 03/03/25 0810 Date Marietta Lugo MD Cosigner Signature (if applicable): Date CC: Dr. Alfredo Barroso MD; Dr. Marietta Lugo MD Signed Normal [facility] AST(SGOT)on 03-02-2025 AST [Catalytic activity/Vol] 11 U/L Normal <=31 [facility] Comment on above: Performed By: #### L 100.0500, L501.0900, L501.1105, L501.1400, L501.4100, L501.4405 ####[facility] [address] [place], [address] Alanine Aminotransferas (SGP T)on 03-02-2025 ALT [Catalytic activity/Vol] 7 U/L Normal <=34 [facility] Comment on above: Performed By: #### L 100.0500, L501.0900, L501.1105, L501.1400, L501.4100, L501.4405 ####[facility] [address] [place], [address] CBC-Complete Blood Cnt No Di ffon 03-02-2025 Erythrocyte distribution width (RBC) [Ratio] 14.0 % Normal 11.6-14.6 [facility] Comment on above: Performed By: #### L 100.0500, L501.0900, L501.1105, L501.1400, L501.4100, L501.4405 #### [facility] [address] [place], [address] Hematocrit (Bld) [Volume fraction] 34.6 % Low 37-47 [facility] Comment on above: Performed By: #### L 100.0500, L501.0900, L501.1105, L501.1400, L501.4100, L501.4405 #### [facility] [address] [place], [address] Hemoglobin (Bld) [Mass/Vol] 11.6 g/dL Low 12.0-15.0 [facility] Comment on above: Performed By: #### L 100.0500, L501.0900, L501.1105, L501.1400, L501.4100, L501.4405 #### [facility] [address] [place], [address] MCH (RBC) [Entitic mass] 27.1 pg Normal 27.0-32.0 [facility] Comment on above: Performed By: #### L 100.0500, L501.0900, L501.1105, L501.1400, L501.4100, L501.4405 #### [facility] [address] [place], [address] MCHC (RBC) [Mass/Vol] 33.5 g/dL Normal 32-36 [facility] Comment on above: Performed By: #### L 100.0500, L501.0900, L501.1105, L501.1400, L501.4100, L501.4405 #### [facility] [address] [place], [address] MCV (RBC) [Entitic vol] 80.8 fL Low 81-99 [facility] Comment on above: Performed By: #### L 100.0500, L501.0900, L501.1105, L501.1400, L501.4100, L501.4405 #### [facility] [address] [place], [address] Platelet mean volume (Bld) [Entitic vol] 8.5 fL Normal 6.2-12.0 [facility] Comment on above: Performed By: #### L 100.0500, L501.0900, L501.1105, L501.1400, L501.4100, L501.4405 #### [facility] [address] [place], [address] Platelets (Bld) [#/Vol] 324 10*3/uL Normal 150-450 [facility] Comment on above: Performed By: #### L 100.0500, L501.0900, L501.1105, L501.1400, L501.4100, L501.4405 #### [facility] [address] [place], [address] RBC (Bld) [#/Vol] 4.28 10*6/uL Normal 4.2-5.4 [facility] Comment on above: Performed By: #### L 100.0500, L501.0900, L501.1105, L501.1400, L501.4100, L501.4405 #### [facility] [address] [place], [address] RDW SD 41.2 fl Normal 35.1-43.9 [facility] Comment on above: Performed By: #### L 100.0500, L501.0900, L501.1105, L501.1400, L501.4100, L501.4405 #### [facility] [address] [place], [address] WBC (Bld) [#/Vol] 9.2 10*3/uL Normal 4.4-11.0 [facility] Comment on above: Performed By: #### L 100.0500, L501.0900, L501.1105, L501.1400, L501.4100, L501.4405 #### [facility] [address] [place], [address] CNPNon [facility]-02-20[facility] LEELEE ZAMOR[facility] ([id number]) 1995 F Date Time Provider Department 03/02/25 MARIETTA LUGO During your visit today, we recorded the following information about you: Tatyana Aponte, TERRY 03/02/2025 2:08 PM Signed Patient 35w5d calling with complaints of headache since Thursday that is not resolved with medication. Patient denies any dizziness, blurred vision or increased swelling. Patient denies bleeding or leaking of fluid. Patient states she feels she is having wei rodriguez contractions and unsure of movement. Discussed with Dr. Lugo who is retail seasonal specialist and she would like patient to go to [facility] for headache and decreased FM. Patient notified and is headed to hospital. [facility] notified. Tatyana Aponte RN Allergies As of Date: 03/02/2025 Noted Allergy Reaction CAT DANDER 07/22/2023 4 - Hives CRANBERRY 07/22/2023 2 - Rash HOUSE DUST 07/22/2023 4 - Hives MOLD 07/22/2023 14 - Other: See Comments PEANUT 07/22/2023 7 - Swelling TREE NUTS 07/02/2022 2 - Rash MORPHINE 03/23/2017 14 - Other: See Comments Comments: Tightness in chest Date Reviewed: 02/28/2025 Reviewed by: Lilly Conklin MA - Fully Assessed Reason for Visit: Headache [52] Prescriptions as of 03/02/2025 - insulin NPH subcutaneous pen Inject 12units in evening and 14units in morning - Blood-Glucose Meter Use as directed to check glucose levels up to seven times daily. - blood sugar diagnostic test strip Use as directed to check glucose levels up to seven times daily. - Lancets Use as directed to check glucose levels up to seven times daily. - alcohol swabs (ALCOHOL PREP PADS) Use as directed to check glucose levels up to seven times daily. - aspirin, enteric coated (ECOTRIN LOW STRENGTH) 81 mg EC tablet Take 1 tablet by mouth once daily. - PNV 206-yhaov-emsel-3-fish oil 400-32.5 mcg-mg chew Problem List As Of Date 03/02/2025 Noted Resolved Class 2 obesity without serious comorbidity wit*03/09/2018 12/07/2023 Vitamin D deficiency [E55.9] 12/16/2018 SAMAN (generalized anxiety disorder) [F41.1] 12/16/2018 History of gastroesophageal reflux (GERD) [Z87.*12/16/2018 Allergic rhinitis, unspecified [J30.9] 12/16/2018 Ex-smoker [Z87.891] 12/16/2018 Psoriasis [L40.9] 12/16/2018 Encounter for insertion of mirena IUD [Z30.430] 12/16/2018 12/07/2023 Acute deep vein thrombosis (DVT) of popliteal v*02/202212/07/2023 IUD (intrauterine device) in place [Z97.5] 11/06/2022 12/07/2023 Polycystic ovary syndrome [E28.2] 12/17/2022 Obesity, Class II, BMI 35-39.9 [E66.812] 07/02/2023 07/06/2023 Obesity complicating , second trimeste*07/06/2023 Liver hemangioma [D18.03] 09/16/2023 Vapes nicotine containing substance [Z72.0] 10/01/2023 Acute deep vein thrombosis (DVT) of right upper*10/01/2023 Supervision of high risk in second tr*08/18/2024 History of maternal fourth degree perineal lace*08/18/2024 Rectovaginal fistula [N82.3] 08/18/2024 History of gestational diabetes in prior pregna*09/19/2024 History of forceps delivery in prior ,*09/19/2024 Elevated glucose tolerance test [R73.09] 12/29/2024 Diet controlled gestational diabetes mellitus (*12/30/2024 02/16/2025 Insulin controlled gestational diabetes mellitu*02/16/2025 Encounter Status:Closed by TATYANA APONTE on 03/02/25 Normal [facility] Protein+Creatinine Ratio,Uri neon 03-02-2025 PROT:CRE RATIO 244 mg/g CRE High 0-200 [facility] Comment on above: Performed By: #### L 100.0500, L501.0900, L501.1105, L501.1400, L501.4100, L501.4405 #### [facility] [address] [place], [address] Protein (U) [Mass/Vol] 18.9 mg/dL High 0.0-12.0 [facility] Comment on above: Performed By: #### L 100.0500, L501.0900, L501.1105, L501.1400, L501.4100, L501.4405 #### [facility] [address] [place], [address] UR CREAT 77.50 mg/dL Normal 28.00-217.00 [facility] Comment on above: Performed By: #### L 100.0500, L501.0900, L501.1105, L501.1400, L501.4100, L501.4405 #### [facility] [address] [place], [address] Serum Creatinine AND GFRon 0 03-02-2025 Creatinine [Mass/Vol] 0.48 mg/dL Low 0.70-1.20 [facility] Comment on above: Performed By: #### L 100.0500, L501.0900, L501.1105, L501.1400, L501.4100, L501.4405 ####[facility] [address] [place], [address] ECRCL 216.79 ml/min Normal 50-250 [facility] Comment on above: Performed By: #### L 100.0500, L501.0900, L501.1105, L501.1400, L501.4100, L501.4405 ####[facility] [address] [place], [address] GFR/1.73 sq M.predicted among non-blacks MDRD (S/P/Bld) [Vol rate/Area] 131 mL/min/{1.73_m2} Normal >60 [facility] Comment on above: Result Comment: mL/m in/1.73m2 CKD-EPI Creatinine Equation (2020) Performed By: #### L 100.0500, L501.0900, L501.1105, L501.1400, L501.4100, L501.4405 ####[facility] [address] [place], [address] Uric Acidon 03-02-2025 URIC 4.8 mg/dL Normal 2.6-6.0 [facility] Comment on above: Result Comment: The drugs N-Acetylcysteine and Metamizole may falsely depress this assay. Performed By: #### L 100.0500, L501.0900, L501.1105, L501.1400, L501.4100, L501.4405 ####[facility] [address] [place], [address] Urinalysis, Routine (Dipstic k)on 03-02-2025 BILIRUBIN URINE Negative Normal Negative [facility] Comment on above: Order Comment: DANIELLE CTOR TO SPECIFY Performed By: #### L 400.2010 #### [facility] [address] [place], [address] Clarity (U) Sl. Cloudy Normal Clear [facility] Comment on above: Order Comment: DANIELLE CTOR TO SPECIFY Performed By: #### L 400.2010 #### [facility] [address] [place], [address] Color (U) Straw Normal Yellow [facility] Comment on above: Order Comment: DANIELLE CTOR TO SPECIFY Performed By: #### L 400.2010 #### [facility] [address] [place], [address] GLUCOSE, UR Normal Normal Normal [facility] Comment on above: Order Comment: DANIELLE CTOR TO SPECIFY Performed By: #### L 400.2010 #### [facility] [address] [place], [address] KETONE UR Negative Normal Negative [facility] Comment on above: Order Comment: DANIELLE CTOR TO SPECIFY Performed By: #### L 400.2010 #### [facility] [address] [place], [address] LEUK ESTERASE 25 /ul Abnormal Negative [facility] Comment on above: Order Comment: DANIELLE CTOR TO SPECIFY Performed By: #### L 400.2010 #### [facility] [address] [place], [address] Nitrite Ql (U) Negative Normal Negative [facility] Comment on above: Order Comment: DANIELLE CTOR TO SPECIFY Performed By: #### L 400.2010 #### [facility] [address] [place], [address] OCCULT BLOOD-UR Negative Normal Negative [facility] Comment on above: Order Comment: COLLE CTOR TO SPECIFY Performed By: #### L 400.2010 #### [facility] [address] [place], [address] pH UR 6.5 Normal 5.0 - 8.0 [facility] Comment on above: Order Comment: COLLE CTOR TO SPECIFY Performed By: #### L 400.2010 #### [facility] [address] [place], [address] PROT DIPSTX 30 mg/dl Abnormal Negative [facility] Comment on above: Order Comment: COLLE CTOR TO SPECIFY Performed By: #### L 400.2010 #### [facility] [address] [place], [address] SP.GR. DIPSTX 1.010 Normal 1.002-1.030 [facility] Comment on above: Order Comment: DANIELLE CTOR TO SPECIFY Performed By: #### L 400.2010 #### [facility] [address] [place], [address] UROBILI Normal Normal Normal [facility] Comment on above: Order Comment: COLLE CTOR TO SPECIFY Performed By: #### L 400.2010 #### [facility] [address] [place], [address] [facility] Telephone (DONATO) LEELEE ZAMORA ([id number]) 1995 F Date Time Provider Department 02/24/25 ARMANDO BURTON During your visit today, we recorded the following information about you: Allergies As of Date: 02/24/2025 Noted Allergy Reaction CAT DANDER 07/22/2023 4 - Hives CRANBERRY 07/22/2023 2 - Rash HOUSE DUST 07/22/2023 4 - Hives MOLD 07/22/2023 14 - Other: See Comments PEANUT 07/22/2023 7 - Swelling TREE NUTS 07/02/2022 2 - Rash MORPHINE 03/23/2017 14 - Other: See Comments Comments: Tightness in chest Date Reviewed: 02/21/2025 Reviewed by: Hector Garcia, TERRY - Fully Assessed Prescriptions as of 02/24/2025 - insulin NPH subcutaneous pen Inject 12 Units subcutaneously two times a day at 6 am and 9 pm. - Blood-Glucose Meter Use as directed to check glucose levels up to seven times daily. - blood sugar diagnostic test strip Use as directed to check glucose levels up to seven times daily. - Lancets Use as directed to check glucose levels up to seven times daily. - alcohol swabs (ALCOHOL PREP PADS) Use as directed to check glucose levels up to seven times daily. - aspirin, enteric coated (ECOTRIN LOW STRENGTH) 81 mg EC tablet Take 1 tablet by mouth once daily. - PNV 279-jltfn-znvig-3-fish oil 400-32.5 mcg-mg chew Problem List As Of Date 02/24/2025 Noted Resolved Class 2 obesity without serious comorbidity wit*03/09/2018 12/07/2023 Vitamin D deficiency [E55.9] 12/16/2018 SAMAN (generalized anxiety disorder) [F41.1] 12/16/2018 History of gastroesophageal reflux (GERD) [Z87.*12/16/2018 Allergic rhinitis, unspecified [J30.9] 12/16/2018 Ex-smoker [Z87.891] 12/16/2018 Psoriasis [L40.9] 12/16/2018 Encounter for insertion of mirena IUD [Z30.430] 12/16/2018 12/07/2023 Acute deep vein thrombosis (DVT) of popliteal v*02/202212/07/2023 IUD (intrauterine device) in place [Z97.5] 11/06/2022 12/07/2023 Polycystic ovary syndrome [E28.2] 12/17/2022 Obesity, Class II, BMI 35-39.9 [E66.812] 07/02/2023 07/06/2023 Obesity complicating , second trimeste*07/06/2023 Liver hemangioma [D18.03] 09/16/2023 Vapes nicotine containing substance [Z72.0] 10/01/2023 Acute deep vein thrombosis (DVT) of right upper*10/01/2023 Supervision of high risk in second tr*08/18/2024 History of maternal fourth degree perineal lace*08/18/2024 Rectovaginal fistula [N82.3] 08/18/2024 History of gestational diabetes in prior pregna*09/19/2024 History of forceps delivery in prior ,*09/19/2024 Elevated glucose tolerance test [R73.09] 12/29/2024 Diet controlled gestational diabetes mellitus (*12/30/2024 02/16/2025 Insulin controlled gestational diabetes mellitu*02/16/2025 Encounter Status:Closed by ARMANDO BURTON on 02/24/25 [facility] 02-22-2025 CNPN Telephone (OBGYWM) LEELEE ZAMORA ([id number]) 1995 F Date Time Provider Department 02/22/25 [facility] During your visit today, we recorded the following information about you: Hector Garcia, TERRY 02/22/2025 9:21 AM Signed Previous operative Records from [place] received and sent to be scanned into record. Allergies As of Date: 02/22/2025 Noted Allergy Reaction CAT DANDER 07/22/2023 4 - Hives CRANBERRY 07/22/2023 2 - Rash HOUSE DUST 07/22/2023 4 - Hives MOLD 07/22/2023 14 - Other: See Comments PEANUT 07/22/2023 7 - Swelling TREE NUTS 07/02/2022 2 - Rash MORPHINE 03/23/2017 14 - Other: See Comments Comments: Tightness in chest Date Reviewed: 02/21/2025 Reviewed by: Hector Garcia RN - Fully Assessed Reason for Visit: Received Outside Medical Records [[id number]] Prescriptions as of 02/22/2025 - insulin NPH subcutaneous pen Inject 12 Units subcutaneously two times a day at 6 am and 9 pm. - Blood-Glucose Meter Use as directed to check glucose levels up to seven times daily. - blood sugar diagnostic test strip Use as directed to check glucose levels up to seven times daily. - Lancets Use as directed to check glucose levels up to seven times daily. - alcohol swabs (ALCOHOL PREP PADS) Use as directed to check glucose levels up to seven times daily. - aspirin, enteric coated (ECOTRIN LOW STRENGTH) 81 mg EC tablet Take 1 tablet by mouth once daily. - PNV 031-eomjx-ztbcq-3-fish oil 400-32.5 mcg-mg chew Problem List As Of Date 02/22/2025 Noted Resolved Class 2 obesity without serious comorbidity wit*03/09/2018 12/07/2023 Vitamin D deficiency [E55.9] 12/16/2018 SAMAN (generalized anxiety disorder) [F41.1] 12/16/2018 History of gastroesophageal reflux (GERD) [Z87.*12/16/2018 Allergic rhinitis, unspecified [J30.9] 12/16/2018 Ex-smoker [Z87.891] 12/16/2018 Psoriasis [L40.9] 12/16/2018 Encounter for insertion of mirena IUD [Z30.430] 12/16/2018 12/07/2023 Acute deep vein thrombosis (DVT) of popliteal v*02/202212/07/2023 IUD (intrauterine device) in place [Z97.5] 11/06/2022 12/07/2023 Polycystic ovary syndrome [E28.2] 12/17/2022 Obesity, Class II, BMI 35-39.9 [E66.812] 07/02/2023 07/06/2023 Obesity complicating , second trimeste*07/06/2023 Liver hemangioma [D18.03] 09/16/2023 Vapes nicotine containing substance [Z72.0] 10/01/2023 Acute deep vein thrombosis (DVT) of right upper*10/01/2023 Supervision of high risk in second tr*08/18/2024 History of maternal fourth degree perineal lace*08/18/2024 Rectovaginal fistula [N82.3] 08/18/2024 History of gestational diabetes in prior pregna*09/19/2024 History of forceps delivery in prior ,*09/19/2024 Elevated glucose tolerance test [R73.09] 12/29/2024 Diet controlled gestational diabetes mellitus (*12/30/2024 02/16/2025 Insulin controlled gestational diabetes mellitu*02/16/2025 Encounter Status:Closed by HECTOR GARCIA on 02/22/25 [facility] CNPN Telephone (OBGWSR) LEELEE ZAMORA ([id number]) 1995 F Date Time Provider Department 02/22/25 [facility] During your visit today, we recorded the following information about you: Leelee Conroy 02/22/2025 10:38 AM Signed Yesterday Judy Garcia asked me to schedule this pt for a consult w/ Dietary/ Nutrient. She had me schedule it from the Nutrient consult but I received a message back this morning that they do not see for that due to complexity. Could you please place new order with Endo for this visit and I will schedule, thank you. Sophia Hamilton RN 02/22/2025 11:26 AM Signed 34w4d Order pending. Please review and file if appropriate. Pt saw elementary educator 01/10/25. However, has not seen Endo nutrition. TERRY Berrios Deidre, MD 02/22/2025 11:48 AM Signed ordered Allergies As of Date: 02/22/2025 Noted Allergy Reaction CAT DANDER 07/22/2023 4 - Hives CRANBERRY 07/22/2023 2 - Rash HOUSE DUST 07/22/2023 4 - Hives MOLD 07/22/2023 14 - Other: See Comments PEANUT 07/22/2023 7 - Swelling TREE NUTS 07/02/2022 2 - Rash MORPHINE 03/23/2017 14 - Other: See Comments Comments: Tightness in chest Date Reviewed: 02/21/2025 Reviewed by: Hector Garcia RN - Fully Assessed Reason for Visit: GDM [Other] Primary Visit Diagnosis:Diet controlled gestational diabetes mellitus (GDM) in third trimester ([facility]) [O24.410] Other Visit Diagnoses:Supervision of high risk in third trimester ([facility]) [O09.93] Gestational diabetes mellitus (GDM) requiring insulin ([facility]) [O24.414] Order(s):ENDOCRINOLOGY DIETITIAN VISIT ([facility]) [0386738] Order #: [id number]: 4 FUTURE Prescriptions as of 02/22/2025 - insulin NPH subcutaneous pen Inject 12 Units subcutaneously two times a day at 6 am and 9 pm. - Blood-Glucose Meter Use as directed to check glucose levels up to seven times daily. - blood sugar diagnostic test strip Use as directed to check glucose levels up to seven times daily. - Lancets Use as directed to check glucose levels up to seven times daily. - alcohol swabs (ALCOHOL PREP PADS) Use as directed to check glucose levels up to seven times daily. - aspirin, enteric coated (ECOTRIN LOW STRENGTH) 81 mg EC tablet Take 1 tablet by mouth once daily. - PNV 273-tyvpd-qpydg-3-fish oil 400-32.5 mcg-mg chew Problem List As Of Date 02/22/2025 Noted Resolved Class 2 obesity without serious comorbidity wit*03/09/2018 12/07/2023 Vitamin D deficiency [E55.9] 12/16/2018 SAMAN (generalized anxiety disorder) [F41.1] 12/16/2018 History of gastroesophageal reflux (GERD) [Z87.*12/16/2018 Allergic rhinitis, unspecified [J30.9] 12/16/2018 Ex-smoker [Z87.891] 12/16/2018 Psoriasis [L40.9] 12/16/2018 Encounter for insertion of mirena IUD [Z30.430] 12/16/2018 12/07/2023 Acute deep vein thrombosis (DVT) of popliteal v*02/202212/07/2023 IUD (intrauterine device) in place [Z97.5] 11/06/2022 12/07/2023 Polycystic ovary syndrome [E28.2] 12/17/2022 Obesity, Class II, BMI 35-39.9 [E66.812] 07/02/2023 07/06/2023 Obesity complicating , second trimeste*07/06/2023 Liver hemangioma [D18.03] 09/16/2023 Vapes nicotine containing substance [Z72.0] 10/01/2023 Acute deep vein thrombosis (DVT) of right upper*10/01/2023 Supervision of high risk in second tr*08/18/2024 History of maternal fourth degree perineal lace*08/18/2024 Rectovaginal fistula [N82.3] 08/18/2024 History of gestational diabetes in prior pregna*09/19/2024 History of forceps delivery in prior ,*09/19/2024 Elevated glucose tolerance test [R73.09] 12/29/2024 Diet controlled gestational diabetes mellitus (*12/30/2024 02/16/2025 Insulin controlled gestational diabetes mellitu*02/16/2025 Encounter Status:Closed by LEELEE CONROY on 02/22/25 [facility] LEELE[facility] ([id number]) 1995 F Date Time Provider Department 02/21/25 [place] During your visit today, we recorded the following information about you: Hector Garcia RN 02/21/2025 3:52 PM Signed Faxed request form sent to [facility] [phone] for records related to fistula surgery. They are to send 2 operative reports from 2020 and one from 2021 Allergies As of Date: 02/21/2025 Noted Allergy Reaction CAT DANDER 07/22/2023 4 - Hives CRANBERRY 07/22/2023 2 - Rash HOUSE DUST 07/22/2023 4 - Hives MOLD 07/22/2023 14 - Other: See Comments PEANUT 07/22/2023 7 - Swelling TREE NUTS 07/02/2022 2 - Rash MORPHINE 03/23/2017 14 - Other: See Comments Comments: Tightness in chest Date Reviewed: 02/21/2025 Reviewed by: Hector Garcia, RN - Fully Assessed Reason for Visit: Request Outside Medical Records [[id number]] Prescriptions as of 02/21/2025 - insulin NPH subcutaneous pen Inject 12 Units subcutaneously two times a day at 6 am and 9 pm. - Blood-Glucose Meter Use as directed to check glucose levels up to seven times daily. - blood sugar diagnostic test strip Use as directed to check glucose levels up to seven times daily. - Lancets Use as directed to check glucose levels up to seven times daily. - alcohol swabs (ALCOHOL PREP PADS) Use as directed to check glucose levels up to seven times daily. - aspirin, enteric coated (ECOTRIN LOW STRENGTH) 81 mg EC tablet Take 1 tablet by mouth once daily. - PNV 427-ynvkq-zyhhk-3-fish oil 400-32.5 mcg-mg chew Problem List As Of Date 02/21/2025 Noted Resolved Class 2 obesity without serious comorbidity wit*03/09/2018 12/07/2023 Vitamin D deficiency [E55.9] 12/16/2018 SAMAN (generalized anxiety disorder) [F41.1] 12/16/2018 History of gastroesophageal reflux (GERD) [Z87.*12/16/2018 Allergic rhinitis, unspecified [J30.9] 12/16/2018 Ex-smoker [Z87.891] 12/16/2018 Psoriasis [L40.9] 12/16/2018 Encounter for insertion of mirena IUD [Z30.430] 12/16/2018 12/07/2023 Acute deep vein thrombosis (DVT) of popliteal v*02/202212/07/2023 IUD (intrauterine device) in place [Z97.5] 11/06/2022 12/07/2023 Polycystic ovary syndrome [E28.2] 12/17/2022 Obesity, Class II, BMI 35-39.9 [E66.812] 07/02/2023 07/06/2023 Obesity complicating , second trimeste*07/06/2023 Liver hemangioma [D18.03] 09/16/2023 Vapes nicotine containing substance [Z72.0] 10/01/2023 Acute deep vein thrombosis (DVT) of right upper*10/01/2023 Supervision of high risk in second tr*08/18/2024 History of maternal fourth degree perineal lace*08/18/2024 Rectovaginal fistula [N82.3] 08/18/2024 History of gestational diabetes in prior pregna*09/19/2024 History of forceps delivery in prior ,*09/19/2024 Elevated glucose tolerance test [R73.09] 12/29/2024 Diet controlled gestational diabetes mellitus (*12/30/2024 02/16/2025 Insulin controlled gestational diabetes mellitu*02/16/2025 Encounter Status:Closed by HECTOR GARCIA on 02/21/25 Normal [facility] Examination level ultrasound on 02-21-2025 [facility] Radiology Study observation (narrative) [facility] ([facility]) Rupture Of Membraneson 02-09-2025 ROM Negative Normal Negative [facility] Comment on above: Result Comment: Amni otic fluid not present indicates No Rupture of Membranes at time of specimen collection. Performed By: #### L 205.1000 ####[facility] [address] [place], [place], [address] C-LINE PRESENT? Normal Internal QC [facility] Comment on above: Result Comment: This specimen has been REJECTED due to Laboratory criteria: Quanity Not Sufficient. MARIANNA PAYAN has been notified of need of recollection. 02/09/251901 Dick Vasquez Performed By: #### L 205.1000 #### [facility] [address] [place], [address] RECORD KIT LOT# Normal [facility] Comment on above: Result Comment: This specimen has been REJECTED due to Laboratory criteria: Quanity Not Sufficient. MARIANNA PAYAN has been notified of need of recollection. 02/09/251901 Dick Christina Performed By: #### L 205.1000 #### [facility] [address] [place], [address] ROM Normal Negative [facility] Comment on above: Result Comment: This specimen has been REJECTED due to Laboratory criteria: Quanity Not Sufficient. MARIANNA PAYAN has been notified of need of recollection. 02/09/251901 Dick Christina Performed By: #### L 205.1000 #### [facility] [address] [place], [address] C-LINE PRESENT? Normal Internal QC [facility] Comment on above: Result Comment: Canc elled via OM: Order edited - Discontinuing original order Performed By: #### L 205.1000 #### [facility] [address] [place], [address] RECORD KIT LOT# Normal [facility] Comment on above: Result Comment: Canc elled via OM: Order edited - Discontinuing original order Performed By: #### L 205.1000 #### [facility] [address] [place], [address] ROM Normal Negative [facility] Comment on above: Result Comment: Canc elled via OM: Order edited - Discontinuing original order Performed By: #### L 205.1000 #### [facility] [address] [place], [address] CNPNon 02-09-2025 CNPN Telephone (OBGYWM) LEELEE ZAMORA ([id number]) 1995 F Date Time Provider Department 02/09/25 [facility] During your visit today, we recorded the following information about you: Sophia Hamilton RN 02/09/2025 3:43 PM Signed 32w5d Pt calls stating she has drank 180oz (3 big cups that are 64 ounces) AND has Peed once/ has no urge to pee-Pt worried about her kidneys as urine was dark. GDM w/BGT 91, after lunch 165, has not checked after snack. Has been busy today and running errands/states extremely hot. Advised Pt to continue drinking plenty of fluids, continue to check BG as advised, review GDM booklet (Pt states she has and looks at it all the time regarding her symptoms)-encouraged her to continue doing so re: hyper/hypoglycemia, informed Pt that it is likely she was more dehydrated than she realized. Informed her urine was dark likely because she has only voiced once. Instructed her to call office if she would have difficulty voiding or pain with urination. Decreased FM-only have 4 in 2-3 hour period. Reviewed kick counts with Pt. Passado message sent with instructions for future reference. Discussed Decreased FM with RR and Pt scheduled to come to office for NST. Pt's next NST in office 02/15/25 with OB appt following. Sophia Hamilton RN Allergies As of Date: 02/09/2025 Noted Allergy Reaction CAT DANDER 07/22/2023 4 - Hives CRANBERRY 07/22/2023 2 - Rash HOUSE DUST 07/22/2023 4 - Hives MOLD 07/22/2023 14 - Other: See Comments PEANUT 07/22/2023 7 - Swelling TREE NUTS 07/02/2022 2 - Rash MORPHINE 03/23/2017 14 - Other: See Comments Comments: Tightness in chest Date Reviewed: 02/06/2025 Reviewed by: Britney Griffin MD - Fully Assessed Prescriptions as of 02/10/2025 - Blood-Glucose Meter Use as directed to check glucose levels up to seven times daily. - blood sugar diagnostic test strip Use as directed to check glucose levels up to seven times daily. - Lancets Use as directed to check glucose levels up to seven times daily. - alcohol swabs (ALCOHOL PREP PADS) Use as directed to check glucose levels up to seven times daily. - aspirin, enteric coated (ECOTRIN LOW STRENGTH) 81 mg EC tablet Take 1 tablet by mouth once daily. - PNV 620-eryxe-yqyxp-3-fish oil 400-32.5 mcg-mg chew Problem List As Of Date 02/09/2025 Noted Resolved Class 2 obesity without serious comorbidity wit*03/09/2018 12/07/2023 Vitamin D deficiency [E55.9] 12/16/2018 SAMAN (generalized anxiety disorder) [F41.1] 12/16/2018 History of gastroesophageal reflux (GERD) [Z87.*12/16/2018 Allergic rhinitis, unspecified [J30.9] 12/16/2018 Ex-smoker [Z87.891] 12/16/2018 Psoriasis [L40.9] 12/16/2018 Encounter for insertion of mirena IUD [Z30.430] 12/16/2018 12/07/2023 Acute deep vein thrombosis (DVT) of popliteal v*02/202212/07/2023 IUD (intrauterine device) in place [Z97.5] 11/06/2022 12/07/2023 Polycystic ovary syndrome [E28.2] 12/17/2022 Obesity, Class II, BMI 35-39.9 [E66.812] 07/02/2023 07/06/2023 Obesity complicating , second trimeste*07/06/2023 Liver hemangioma [D18.03] 09/16/2023 Vapes nicotine containing substance [Z72.0] 10/01/2023 Acute deep vein thrombosis (DVT) of right upper*10/01/2023 Supervision of high risk in second tr*08/18/2024 History of maternal fourth degree perineal lace*08/18/2024 Rectovaginal fistula [N82.3] 08/18/2024 History of gestational diabetes in prior pregna*09/19/2024 History of forceps delivery in prior ,*09/19/2024 Elevated glucose tolerance test [R73.09] 12/29/2024 Diet controlled gestational diabetes mellitus (*12/30/2024 Encounter Status:Closed by BRITNEY GRIFFIN on 02/10/25 Normal [facility] OB Triage Physician Noteon 0 02-09-2025 OB Triage Physician Note [facility] Medical Records Department [address] [place] [address] OB Triage Physician Note 02/09/252031 MR#: [id number] Acct: [id number] Name: LEELEE ZAMORA Rep #: [id number] : 1995 29 From: Britney Griffin MD PCP: Dr. Alfredo Barroso MD Status:DEP CLI Y Location: [facility] HPI - General General Date of Admission: 02/09/25 Date of Service: 02/09/25 Chief Complaint: decreased FM HPI Narrative LEELEE ZAMORA, is a 29 F who presents 2 para 1 complaining of decreased movement today. She denies any vaginal bleeding or contractions. She states she might have some urinary incontinence but she is not sure so she has had some watery discharge. 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 Patient had a history of an ileostomy and is planned to have a primary section at a tertiary care center this .. Maternal Data Information Final MJ: 04/01/25 Gestational age: 32 5/7 [facility] Medical History Hypotension Dizziness Vitamin D deficiency PCOS (polycystic ovarian syndrome) Obesity GERD (gastroesophageal reflux disease) Hx of deep venous thrombosis History of post traumatic stress disorder SBO (small bowel obstruction) Endometritis Chronic pain Post traumatic stress disorder (PTSD) ADHD (attention deficit hyperactivity disorder) Anxiety Home Medications ???Medication ???Instructions ???Recorded ???Last Taken ???Type aspirin 81 mg tablet,delayed 81 mg PO QDAY 09/28/24 01/04/25 Hi story release vitamin no.102-iron 90 1 cap PO QDAY 09/28/24 01/04/25 Hi story mg-folate 1 mg-dha 200 mg capsule Allergy/AdvReac Type Severity Reaction Status Date / Time cat dander Allergy Hives Verified 02/09/25 18:16 house dust Allergy Hives Verified 02/09/25 18:16 peanut Allergy Swelling Verified 02/09/25 18:16 cranberry AdvReac Rash Verified 02/09/25 18:16 mold AdvReac Other Verified 02/09/25 18:16 morphine AdvReac Chest Verified 02/09/25 18:16 tightness Family History Aunt Cancer maternal aunt - uterine/cervical ca Mother Heart disease Father Diabetes Hypertension Grandmother Kidney disease CVA (cerebral vascular accident) Myocardial infarction CAD (coronary artery disease) Diabetes Hypertension Surgical History Hx laparoscopic cholecystectomy Dehiscence of perineal wound Fourth degree perineal laceration History of gynecologic surgery Social History Smoking Status: Former smoker alcohol intake: current alcohol intake frequency: a few times a week Alcohol type: beer substance use type: does not use History 2 Elective abortions Hx Para 1 Spontaneous abortions Hx # Term Pregnancies Ectopic pregnancies Hx # Pregnancies Multiple births # of living children Physical Exam Narrative General- awake, alert, nad abd- soft, nontender, gravid ext- trace edema NST FHR Rate Baby A Baseline: 140 Variability:: Moderate Accelerations:: 15 x 15 Decelerations:: None NST Reactive:: Yes Uterine Activity:: no regular ctxs Assessment Plan (1) High risk multigravida in third trimester: (2) 32 weeks gestation of : (3) Decreased movement affecting management of mother, antepartum: QUALIFIERS: Fetus number: single or unspecified fetus Qualified Code(s): O36.8190 - Decreased movements, unspecified trimester, not applicable or unspecified PLAN: Patient appreciates movement now. NST is reactive and reassuring. Patient decreased home with kick counts and follow-up in office or as needed or as scheduled. (4) Vaginal discharge: PLAN: Suspect urinary incontinence. ROM plus is negative, no evidence of spontaneous rupture membranes. 02/09/252035 Date Britney Griffin MD Cosigner Signature (if applicable): Date CC: Dr. Alfredo Barroso MD; Dr. Britney Griffin MD Signed [facility] 02-07-2025 [facility] [place] Telephone ([id number]) LEELEE ZAMORA ([id number]) 1995 F Date Time Provider Department 02/07/25 MARIETTA COBB [id number] During your visit today, we recorded the following information about you: Marietta Cobb RN 02/07/2025 8:14 AM Signed 3rd risk assessment form submitted 02/07/2025. Marietta Cobb RN Allergies As of Date: 02/07/2025 Noted Allergy Reaction CAT DANDER 07/22/2023 4 - Hives CRANBERRY 07/22/2023 2 - Rash HOUSE DUST 07/22/2023 4 - Hives MOLD 07/22/2023 14 - Other: See Comments PEANUT 07/22/2023 7 - Swelling TREE NUTS 07/02/2022 2 - Rash MORPHINE 03/23/2017 14 - Other: See Comments Comments: Tightness in chest Date Reviewed: 02/06/2025 Reviewed by: Britney Griffin MD - Fully Assessed Reason for Visit: Weed Thinner - Other [3615] Cmt: PRAF Prescriptions as of 02/07/2025 - Blood-Glucose Meter Use as directed to check glucose levels up to seven times daily. - blood sugar diagnostic test strip Use as directed to check glucose levels up to seven times daily. - Lancets Use as directed to check glucose levels up to seven times daily. - alcohol swabs (ALCOHOL PREP PADS) Use as directed to check glucose levels up to seven times daily. - aspirin, enteric coated (ECOTRIN LOW STRENGTH) 81 mg EC tablet Take 1 tablet by mouth once daily. - PNV 814-wehni-eoalu-3-fish oil 400-32.5 mcg-mg chew Problem List As Of Date 02/07/2025 Noted Resolved Class 2 obesity without serious comorbidity wit*03/09/2018 12/07/2023 Vitamin D deficiency [E55.9] 12/16/2018 SAMAN (generalized anxiety disorder) [F41.1] 12/16/2018 History of gastroesophageal reflux (GERD) [Z87.*12/16/2018 Allergic rhinitis, unspecified [J30.9] 12/16/2018 Ex-smoker [Z87.891] 12/16/2018 Psoriasis [L40.9] 12/16/2018 Encounter for insertion of mirena IUD [Z30.430] 12/16/2018 12/07/2023 Acute deep vein thrombosis (DVT) of popliteal v*02/202212/07/2023 IUD (intrauterine device) in place [Z97.5] 11/06/2022 12/07/2023 Polycystic ovary syndrome [E28.2] 12/17/2022 Obesity, Class II, BMI 35-39.9 [E66.812] 07/02/2023 07/06/2023 Obesity complicating , second trimeste*07/06/2023 Liver hemangioma [D18.03] 09/16/2023 Vapes nicotine containing substance [Z72.0] 10/01/2023 Acute deep vein thrombosis (DVT) of right upper*10/01/2023 Supervision of high risk in second tr*08/18/2024 History of maternal fourth degree perineal lace*08/18/2024 Rectovaginal fistula [N82.3] 08/18/2024 History of gestational diabetes in prior pregna*09/19/2024 History of forceps delivery in prior ,*09/19/2024 Elevated glucose tolerance test [R73.09] 12/29/2024 Diet controlled gestational diabetes mellitus (*12/30/2024 Encounter Status:Closed by MARIETTA COBB on 02/07/25 Normal [facility] Examination level ultrasound on 02-06-2025 [facility] Radiology Study observation (narrative) [facility] URINE OB DIP B/Oon Glucose Ql (U) Negative Neg mg/dL [facility] Interpretation and review of laboratory results Normal [facility] Protein.monoclonal (U) [Mass/Vol] Negative Neg mg/dL [facility] CNPNon 01-23-2025 CNPN Telephone (OBGYWM) LEELEE ZAMORA ([id number]) 1995 F Date Time Provider Department 01/23/25 SANDHYA RENO During your visit today, we recorded the following information about you: Tatyana Aponte RN 01/23/2025 10:43 AM Signed Patient 30w2d calling with complaints of yeast infection symptoms since Thursday, 01/20. Patient states she is having vaginal itching along with a milky discharge. Denies any bleeding, leaking, odor or dysuria. Discussed Monistat 7 OTC treatment with patient, patient states she can't use Monistat because when she was in 2020 she used it and it caused horrible vaginal swelling. Patient is asking for Diflucan. TERRY Borrego Jessica, APRN.CNM 01/23/2025 12:41 PM Signed We do not recommend diflucan during . But if this is all she can take then I can send it in. If she does not have a true allergy, she can attempt Monistat 7. It does cause discomfort as the medication is treating. She can read the fact sheet as well for diflucan. Fluconazole (Diflucan?) - [employer] Sandhya Reno APRN.CN Tatyana Aponte RN 01/23/2025 12:46 PM Signed mValentt message sent to patient per request. Tatyana Aponte RN Allergies As of Date: 01/23/2025 Noted Allergy Reaction CAT DANDER 07/22/2023 4 - Hives CRANBERRY 07/22/2023 2 - Rash HOUSE DUST 07/22/2023 4 - Hives MOLD 07/22/2023 14 - Other: See Comments PEANUT 07/22/2023 7 - Swelling TREE NUTS 07/02/2022 2 - Rash MORPHINE 03/23/2017 14 - Other: See Comments Comments: Tightness in chest Date Reviewed: 01/21/2025 Reviewed by: Marietta Lugo MD - Fully Assessed Reason for Visit: Vaginal Problem [117] Order(s):fluconazole (DIFLUCAN) 150 mg tabletTake 1 tablet by mouth one time only for 1 dose.Disp: 1 tabletRfl: 0 Prescriptions as of 01/23/2025 - fluconazole (DIFLUCAN) 150 mg tablet Take 1 tablet by mouth one time only for 1 dose. - Blood-Glucose Meter Use as directed to check glucose levels up to seven times daily. - blood sugar diagnostic test strip Use as directed to check glucose levels up to seven times daily. - Lancets Use as directed to check glucose levels up to seven times daily. - alcohol swabs (ALCOHOL PREP PADS) Use as directed to check glucose levels up to seven times daily. - aspirin, enteric coated (ECOTRIN LOW STRENGTH) 81 mg EC tablet Take 1 tablet by mouth once daily. - PNV 813-xdqxn-tsvya-3-fish oil 400-32.5 mcg-mg chew Problem List As Of Date 01/23/2025 Noted Resolved Class 2 obesity without serious comorbidity wit*03/09/2018 12/07/2023 Vitamin D deficiency [E55.9] 12/16/2018 SAMAN (generalized anxiety disorder) [F41.1] 12/16/2018 History of gastroesophageal reflux (GERD) [Z87.*12/16/2018 Allergic rhinitis, unspecified [J30.9] 12/16/2018 Ex-smoker [Z87.891] 12/16/2018 Psoriasis [L40.9] 12/16/2018 Encounter for insertion of mirena IUD [Z30.430] 12/16/2018 12/07/2023 Acute deep vein thrombosis (DVT) of popliteal v*02/202212/07/2023 IUD (intrauterine device) in place [Z97.5] 11/06/2022 12/07/2023 Polycystic ovary syndrome [E28.2] 12/17/2022 Obesity, Class II, BMI 35-39.9 [E66.812] 07/02/2023 07/06/2023 Obesity complicating , second trimeste*07/06/2023 Liver hemangioma [D18.03] 09/16/2023 Vapes nicotine containing substance [Z72.0] 10/01/2023 Acute deep vein thrombosis (DVT) of right upper*10/01/2023 Supervision of high risk in second tr*08/18/2024 History of maternal fourth degree perineal lace*08/18/2024 Rectovaginal fistula [N82.3] 08/18/2024 History of gestational diabetes in prior pregna*09/19/2024 History of forceps delivery in prior ,*09/19/2024 Elevated glucose tolerance test [R73.09] 12/29/2024 Diet controlled gestational diabetes mellitus (*12/30/2024 Prescriptions ordered this encounter Disp Refills Start End FLUCONAZOLE 150 MG TABLET 1 ta* 0 01/23/2025 01/23/2025 Route: ORAL Sig: Take 1 tablet by mouth one time only for 1 dose. Encounter Status:Closed by TATYANA APONTE on 01/23/25 [facility] CNNURSEon 01-10-2025 [facility] Nurse Visit (ENDIMT) LEELEE ZAMORA ([id number]) 1995 F Date Time Provider Department 01/10/25 1:00 PM MIRTA SANTOS During your visit today, we recorded the following information about you: Mirta Santos RN 01/10/2025 1:12 PM Signed DIABETES CARE AND EDUCATION VISIT Location: [place] Type of visit: In person individual PATIENT'S MAIN CONCERN TODAY: GDM Support person present for education today: daughter Cognitive ability: Alert and oriented Motivation to learn: Interested Learning barriers identified by educator: none Method of instruction: written, verbal, and demonstration DIABETES FINDINGS: Monitoring: Reviewed basic monitoring of sugars Meal Planning: reviewed basic 175g recommended diet Medications: reviewed use of insulin in as most common method Problem Solving:hypoglycemia and hyperglycemia discussed Physical Activity: benefits reviewed Reducing Risks: importance of controlling level of blood sugar to avoid complications HANDOUTS: Healthy You: Diabetes and LEARNING RESPONSE: Healthy eating: Demonstrated understanding/competenc y today or at previous visit Being active: Demonstrated understanding/competenc y today or at previous visit Monitoring glucose: Demonstrated understanding/competenc y today or at previous visit POSSIBLE FUTURE TOPICS: 1. DIABETES CARE AND EDUCATION PLAN: Education completed and annual diabetes education follow-up visit recommended Time Spent (Minutes): 30 This visit note will be communicated to the healthcare provider via access to shared medical record. SIGNATURE: Mirta Santos RN PATIENT NAME: Leelee Zamora DATE: January 10, 2025 TIME: 11:56 AM Referring Provider: STEPHANI AARON [[id number]] Allergies As of Date: 01/10/2025 Noted Allergy Reaction CAT DANDER 07/22/2023 4 - Hives CRANBERRY 07/22/2023 2 - Rash HOUSE DUST 07/22/2023 4 - Hives MOLD 07/22/2023 14 - Other: See Comments PEANUT 07/22/2023 7 - Swelling TREE NUTS 07/02/2022 2 - Rash MORPHINE 03/23/2017 14 - Other: See Comments Comments: Tightness in chest Date Reviewed: 12/15/2024 Reviewed by: Marietta Lugo MD - Fully Assessed Visit Diagnosis:Diet controlled gestational diabetes mellitus (GDM) in third trimester (HCC) [O24.410] Order(s):CONSULT TO DIABETES EDUCATION DSME [2133804] Order #: [id number]: 2 Prescriptions as of 01/10/2025 - Blood-Glucose Meter Use as directed to check glucose levels up to seven times daily. - blood sugar diagnostic test strip Use as directed to check glucose levels up to seven times daily. - Lancets Use as directed to check glucose levels up to seven times daily. - alcohol swabs (ALCOHOL PREP PADS) Use as directed to check glucose levels up to seven times daily. - aspirin, enteric coated (ECOTRIN LOW STRENGTH) 81 mg EC tablet Take 1 tablet by mouth once daily. - PNV 798-tocig-hkrra-3-fish oil 400-32.5 mcg-mg chew Problem List As Of Date 01/10/2025 Noted Resolved Class 2 obesity without serious comorbidity wit*03/09/2018 12/07/2023 Vitamin D deficiency [E55.9] 12/16/2018 SAMAN (generalized anxiety disorder) [F41.1] 12/16/2018 History of gastroesophageal reflux (GERD) [Z87.*12/16/2018 Allergic rhinitis, unspecified [J30.9] 12/16/2018 Ex-smoker [Z87.891] 12/16/2018 Psoriasis [L40.9] 12/16/2018 Encounter for insertion of mirena IUD [Z30.430] 12/16/2018 12/07/2023 Acute deep vein thrombosis (DVT) of popliteal v*02/202212/07/2023 IUD (intrauterine device) in place [Z97.5] 11/06/2022 12/07/2023 Polycystic ovary syndrome [E28.2] 12/17/2022 Obesity, Class II, BMI 35-39.9 [E66.812] 07/02/2023 07/06/2023 Obesity complicating , second trimeste*07/06/2023 Liver hemangioma [D18.03] 09/16/2023 Vapes nicotine containing substance [Z72.0] 10/01/2023 Acute deep vein thrombosis (DVT) of right upper*10/01/2023 Supervision of high risk in second tr*08/18/2024 History of maternal fourth degree perineal lace*08/18/2024 Rectovaginal fistula [N82.3] 08/18/2024 History of gestational diabetes in prior pregna*09/19/2024 History of forceps delivery in prior ,*09/19/2024 Elevated glucose tolerance test [R73.09] 12/29/2024 Diet controlled gestational diabetes mellitus (*12/30/2024 Encounter Status:Closed by MIRTA SANTOS on 01/10/25 [facility] Padma 01-10-2025 CNPN Telephone (OBGYWM) LEELEE ZAMORA ([id number]) 1995 F Date Time Provider Department 01/10/25 TAHMINA DUMONT OBGYWJeffrey During your visit today, we recorded the following information about you: Sophia Hamilton RN 01/10/2025 1:06 PM Signed Tahmina Dumont MD to [facility] Ob-Assistant Professor Of Psychology Pool 01/10/25 12:53 PM Result Note Growth in four weeks Tahmina Dumont MD OBSTETRIC ULTRASOUND [facility]I Sophia Hamilton, TERYR 01/10/2025 1:06 PM Signed Left message for patient to call office. TERRY Berrios Tara, TERRY 01/10/2025 1:57 PM Signed Pt in office and notified of need to get appointments scheduled. Pt saw AT today. Pt was at front desk host asking to speak to the nurse stating she was under the impression she was needing prescription medication for the GDM, but this was not discussed. Leelee had appt with elementary educator today; However, when this RN asked if she was willing to see Butter Maker, Pt states she has the information, but is not interested at this time. Advised Pt to eat high protein meals and avoid high sugary foods. Pt states she has the GDM information re: target ranges and this RN advised her to send her blood sugars weekly to provider via [employer] and if any questions/concerns to call office. Pt handed this RN blood glucose readings from 12/31/24-01/10/25 and copy placed on KJ desk for review. Please advise. Tahmina Dumont MD 01/10/2025 2:39 PM Signed BS log reviewed and majority of BS are normal. Patient just had diabetic education today. Please encourage her to follow the dietary recommendations. It seems that some of her PP breakfast levels are elevated so with some dietary adjustments those could be corrected. Please have her follow up with a BS log in I week to review. MD Fay Bustamante Lindsey, RN 01/10/2025 2:57 PM Signed Patient notified and voiced understanding. Appointment given for next week in office to review BS log. Tatyana Aponte RN Allergies As of Date: 01/10/2025 Noted Allergy Reaction CAT DANDER 07/22/2023 4 - Hives CRANBERRY 07/22/2023 2 - Rash HOUSE DUST 07/22/2023 4 - Hives MOLD 07/22/2023 14 - Other: See Comments PEANUT 07/22/2023 7 - Swelling TREE NUTS 07/02/2022 2 - Rash MORPHINE 03/23/2017 14 - Other: See Comments Comments: Tightness in chest Date Reviewed: 12/15/2024 Reviewed by: Marietta Lugo MD - Fully Assessed Reason for Visit: Appointment [[id number]] Prescriptions as of 01/10/2025 - Blood-Glucose Meter Use as directed to check glucose levels up to seven times daily. - blood sugar diagnostic test strip Use as directed to check glucose levels up to seven times daily. - Lancets Use as directed to check glucose levels up to seven times daily. - alcohol swabs (ALCOHOL PREP PADS) Use as directed to check glucose levels up to seven times daily. - aspirin, enteric coated (ECOTRIN LOW STRENGTH) 81 mg EC tablet Take 1 tablet by mouth once daily. - PNV 350-cqbcv-luuzt-3-fish oil 400-32.5 mcg-mg chew Problem List As Of Date 01/10/2025 Noted Resolved Class 2 obesity without serious comorbidity wit*03/09/2018 12/07/2023 Vitamin D deficiency [E55.9] 12/16/2018 SAMAN (generalized anxiety disorder) [F41.1] 12/16/2018 History of gastroesophageal reflux (GERD) [Z87.*12/16/2018 Allergic rhinitis, unspecified [J30.9] 12/16/2018 Ex-smoker [Z87.891] 12/16/2018 Psoriasis [L40.9] 12/16/2018 Encounter for insertion of mirena IUD [Z30.430] 12/16/2018 12/07/2023 Acute deep vein thrombosis (DVT) of popliteal v*02/202212/07/2023 IUD (intrauterine device) in place [Z97.5] 11/06/2022 12/07/2023 Polycystic ovary syndrome [E28.2] 12/17/2022 Obesity, Class II, BMI 35-39.9 [E66.812] 07/02/2023 07/06/2023 Obesity complicating , second trimeste*07/06/2023 Liver hemangioma [D18.03] 09/16/2023 Vapes nicotine containing substance [Z72.0] 10/01/2023 Acute deep vein thrombosis (DVT) of right upper*10/01/2023 Supervision of high risk in second tr*08/18/2024 History of maternal fourth degree perineal lace*08/18/2024 Rectovaginal fistula [N82.3] 08/18/2024 History of gestational diabetes in prior pregna*09/19/2024 History of forceps delivery in prior ,*09/19/2024 Elevated glucose tolerance test [R73.09] 12/29/2024 Diet controlled gestational diabetes mellitus (*12/30/2024 Encounter Status:Closed by TATYANA APONTE on 01/10/25 Normal [facility] Examination level ultrasound on 01-10-2025 [facility] Radiology Study observation (narrative) [facility] OB Triage Physician Noteon 0 01-10-2025 OB Triage Physician Note [facility] Medical Records Department [address] [place] [address] OB Triage Physician Note 01/10/25 1037 MR#: [id number] Acct: [id number] Name: LEELEE ZAMORA Rep #: [id number] : 1995 29 From: Britney Griffin MD PCP: Dr. Alfredo Barroso MD Status:[facility] Y Location: [facility] HPI - General General Date of Admission: 01/09/25 Date of Service: 01/09/25 Chief Complaint: abdominal trauma in pregnacy HPI Narrative LEELEE ZAMORA, is a 29 F who presents c/o of her daughter jumping on her abdomen. . Maternal Data Information Final MJ: 04/01/25 Gestational age: 29 PFSH PFSH Medical History Hypotension Dizziness Vitamin D deficiency PCOS (polycystic ovarian syndrome) Obesity GERD (gastroesophageal reflux disease) Hx of deep venous thrombosis History of post traumatic stress disorder SBO (small bowel obstruction) Endometritis Chronic pain Post traumatic stress disorder (PTSD) ADHD (attention deficit hyperactivity disorder) Anxiety Home Medications ???Medication ???Instructions ???Recorded ???Last Taken ???Type aspirin 81 mg tablet,delayed 81 mg PO QDAY 09/28/24 01/04/25 Hi story release vitamin no.102-iron 90 1 cap PO QDAY 09/28/24 01/04/25 Hi story mg-folate 1 mg-dha 200 mg capsule Allergy/AdvReac Type Severity Reaction Status Date / Time cat dander Allergy Hives Verified 01/05/25 10:22 house dust Allergy Hives Verified 01/05/25 10:22 peanut Allergy Swelling Verified 01/05/25 10:22 cranberry AdvReac Rash Verified 01/05/25 10:22 mold AdvReac Other Verified 01/05/25 10:22 morphine AdvReac Chest Verified 01/05/25 10:22 tightness Family History Aunt Cancer maternal aunt - uterine/cervical ca Mother Heart disease Father Diabetes Hypertension Grandmother Kidney disease CVA (cerebral vascular accident) Myocardial infarction CAD (coronary artery disease) Diabetes Hypertension Surgical History Hx laparoscopic cholecystectomy Dehiscence of perineal wound Fourth degree perineal laceration History of gynecologic surgery Social History Smoking Status: Former smoker alcohol intake: current alcohol intake frequency: a few times a week Alcohol type: beer substance use type: does not use History 2 Elective abortions Hx Para 1 Spontaneous abortions Hx # Term Pregnancies Ectopic pregnancies Hx # Pregnancies Multiple births # of living children NST FHR Rate Baby A Baseline: 145 Variability:: Moderate Accelerations:: 10 x 10 Decelerations:: Variable NST Reactive:: Yes and Appropriate for gestational age FHR Category:: Category I (for > 20 min before discharge) Uterine Activity:: no regular ctxs. Assessment Plan (1) 29 weeks gestation of : PLAN: A+ blood type. NST appropriate for gest age s/p daughter jumping on abdome d/c home, return prn pain/bleeding/ctxs or decreased FM otherwise f/u in office as scheduled (2) High risk multigravida in third trimester: (3) Abdominal pain affecting , antepartum: 01/10/25 1041 Date Britney Griffin MD Cosigner Signature (if applicable): Date CC: Dr. Alfredo Barroso MD; Dr. Britney Griffin MD Signed Normal [facility] (ROM) Rupture Of Membraneson 01-09-2025 ROM Negative Normal Negative [facility] Comment on above: Result Comment: Amni otic fluid not present indicates No Rupture of Membranes at time of specimen collection. Performed By: #### L 205.1000 #### [facility] [address] [place], [address] [facility]09[facility] LEELEE ZAMORA ([id number]) 1995 F Date Time Provider Department 01/09/25 ANGELA PAUL OBGYWJeffrey During your visit today, we recorded the following information about you: Marietta Werner, RN 01/09/2025 11:38 AM Signed 28w2d Patient called to report that her 37 lb daughter jumped directly on her abdomen causing the patient to have serve pain that radiated up to her arm pits. Denies LOF or VB that she is aware of, but hasn't checked. Has not felt movement since it happened. Directed to go to [facility] for evaluation. RH positive. Patient states it will take her an hour and half to get to [facility] because she needs to get ready. Stressed the importance of receiving early care and to try and get there sooner. [facility] notified. TERRY Emerson Sara, MD 01/09/2025 11:57 AM Signed Agree with [facility] eval Allergies As of Date: 01/09/2025 Noted Allergy Reaction CAT DANDER 07/22/2023 4 - Hives CRANBERRY 07/22/2023 2 - Rash HOUSE DUST 07/22/2023 4 - Hives MOLD 07/22/2023 14 - Other: See Comments PEANUT 07/22/2023 7 - Swelling TREE NUTS 07/02/2022 2 - Rash MORPHINE 03/23/2017 14 - Other: See Comments Comments: Tightness in chest Date Reviewed: 12/15/2024 Reviewed by: Marietta Lugo MD - Fully Assessed Reason for Visit: OB Abdominal Trauma [Other] Prescriptions as of 01/09/2025 - Blood-Glucose Meter Use as directed to check glucose levels up to seven times daily. - blood sugar diagnostic test strip Use as directed to check glucose levels up to seven times daily. - Lancets Use as directed to check glucose levels up to seven times daily. - alcohol swabs (ALCOHOL PREP PADS) Use as directed to check glucose levels up to seven times daily. - aspirin, enteric coated (ECOTRIN LOW STRENGTH) 81 mg EC tablet Take 1 tablet by mouth once daily. - PNV 634-inuev-jxqzb-3-fish oil 400-32.5 mcg-mg chew Problem List As Of Date 01/09/2025 Noted Resolved Class 2 obesity without serious comorbidity wit*03/09/2018 12/07/2023 Vitamin D deficiency [E55.9] 12/16/2018 SAMAN (generalized anxiety disorder) [F41.1] 12/16/2018 History of gastroesophageal reflux (GERD) [Z87.*12/16/2018 Allergic rhinitis, unspecified [J30.9] 12/16/2018 Ex-smoker [Z87.891] 12/16/2018 Psoriasis [L40.9] 12/16/2018 Encounter for insertion of mirena IUD [Z30.430] 12/16/2018 12/07/2023 Acute deep vein thrombosis (DVT) of popliteal v*02/202212/07/2023 IUD (intrauterine device) in place [Z97.5] 11/06/2022 12/07/2023 Polycystic ovary syndrome [E28.2] 12/17/2022 Obesity, Class II, BMI 35-39.9 [E66.812] 07/02/2023 07/06/2023 Obesity complicating , second trimeste*07/06/2023 Liver hemangioma [D18.03] 09/16/2023 Vapes nicotine containing substance [Z72.0] 10/01/2023 Acute deep vein thrombosis (DVT) of right upper*10/01/2023 Supervision of high risk in second tr*08/18/2024 History of maternal fourth degree perineal lace*08/18/2024 Rectovaginal fistula [N82.3] 08/18/2024 History of gestational diabetes in prior pregna*09/19/2024 History of forceps delivery in prior ,*09/19/2024 Elevated glucose tolerance test [R73.09] 12/29/2024 Diet controlled gestational diabetes mellitus (*12/30/2024 Encounter Status:Closed by MARIETTA WERNER on 01/09/25 Normal [facility] Testing for ruptured membran esOrdered By: Angela Paul on 01-09-2025 Vaginal Amniotic Fluid Detection Negative Negative [facility] Comment on above: Amniotic fluid not p resent indicates No Rupture of FetalMembranes at time of specimen collection. OB Triage Physician Noteon 0 01-06-2025 OB Triage Physician Note [facility] Medical Records Department [address] [place] [id number] OB Triage Physician Note 01/06/25 0650 MR#: [id number] Acct: [id number] Name: LEELEE ZAMORA Rep #: [id number] : 1995 29 From: Marietta Lugo MD PCP: Dr. Alfredo Barroso MD Status:DEP CLI Y Location: [facility] HPI - General General Date of Admission: 01/05/25 Date of Service: 01/05/25 Chief Complaint: contractions HPI Narrative LEELEE ZAMORA, is a 29 F who presents at 27 weeks with 3 days of contractions. No LOF. [place] quiet. FFN negative. Cervix closed. Discharged home after reactive NST Maternal Data Information Final MJ: 04/01/25 Gestational age: 27+5 PFSH PFSH Medical History Hypotension Dizziness Vitamin D deficiency PCOS (polycystic ovarian syndrome) Obesity GERD (gastroesophageal reflux disease) Hx of deep venous thrombosis History of post traumatic stress disorder SBO (small bowel obstruction) Endometritis Chronic pain Post traumatic stress disorder (PTSD) ADHD (attention deficit hyperactivity disorder) Anxiety Home Medications ???Medication ???Instructions ???Recorded ???Last Taken ???Type aspirin 81 mg tablet,delayed 81 mg PO QDAY 09/28/24 01/04/25 Hi story release vitamin no.102-iron 90 1 cap PO QDAY 09/28/24 01/04/25 Hi story mg-folate 1 mg-dha 200 mg capsule Allergy/AdvReac Type Severity Reaction Status Date / Time cat dander Allergy Hives Verified 01/05/25 10:22 house dust Allergy Hives Verified 01/05/25 10:22 peanut Allergy Swelling Verified 01/05/25 10:22 cranberry AdvReac Rash Verified 01/05/25 10:22 mold AdvReac Other Verified 01/05/25 10:22 morphine AdvReac Chest Verified 01/05/25 10:22 tightness Family History Aunt Cancer maternal aunt - uterine/cervical ca Mother Heart disease Father Diabetes Hypertension Grandmother Kidney disease CVA (cerebral vascular accident) Myocardial infarction CAD (coronary artery disease) Diabetes Hypertension Surgical History Hx laparoscopic cholecystectomy Dehiscence of perineal wound Fourth degree perineal laceration History of gynecologic surgery Social History Smoking Status: Former smoker alcohol intake: current alcohol intake frequency: a few times a week Alcohol type: beer substance use type: does not use History 2 Elective abortions Hx Para 1 Spontaneous abortions Hx # Term Pregnancies Ectopic pregnancies Hx # Pregnancies Multiple births # of living children NST FHR Rate Baby A Baseline: 140 Variability:: Moderate Accelerations:: 15 x 15 Decelerations:: Variable (x 1) NST Reactive:: Yes Uterine Activity:: quiet Assessment Plan (1) contractions: (2) 27 weeks gestation of : PLAN: Plan discharge home 01/06/25 0654 Date Marietta Lugo MD Cosigner Signature (if applicable): Date CC: Dr. Alfredo Barroso MD; Dr. Marietta Lugo MD Signed Normal [facility] Bilirubin Test strip Ql (U)O rdered By: Marietta Lugo on 01-05-2025 Bilirubin Ql (U) Negative Negative [facility] CNPNon 01-05-2025 CNPN Telephone (OBGYWM) LEELEE ZAMORA ([id number]) 1995 F Date Time Provider Department 01/05/25 MARIETTA LUGO During your visit today, we recorded the following information about you: Marietta Werner, TERRY 01/05/2025 9:17 AM Signed w5d Patient called stating that today is day 3 of having contraction like pain. Rates pain a 4-5, but states she has a high pain tolerance. Pain is intermittent. Its in her abdomen and low back. Denies LOF or VB. Believes that she is losing part of her mucous plug because she has solid chunks of yellow/green tissue. States she spoke with provider retail seasonal specialist as was instructed to rest, put her feet up, and push fluids. If her pain did not improve she was to go to [facility]. Patient did not follow this advice. Calling this morning to see what she should do. Spoke with JACLYN. Patient to go to [facility] for evaluation. [facility][NOTE 3] notified. Marietta Werner RN Allergies As of Date: 01/05/2025 Noted Allergy Reaction CAT DANDER 07/22/2023 4 - Hives CRANBERRY 07/22/2023 2 - Rash HOUSE DUST 07/22/2023 4 - Hives MOLD 07/22/2023 14 - Other: See Comments PEANUT 07/22/2023 7 - Swelling TREE NUTS 07/02/2022 2 - Rash MORPHINE 03/23/2017 14 - Other: See Comments Comments: Tightness in chest Date Reviewed: 12/15/2024 Reviewed by: Marietta Lugo MD - Fully Assessed Reason for Visit: OB Pain [Other] Prescriptions as of 01/05/2025 - Blood-Glucose Meter Use as directed to check glucose levels up to seven times daily. - blood sugar diagnostic test strip Use as directed to check glucose levels up to seven times daily. - Lancets Use as directed to check glucose levels up to seven times daily. - alcohol swabs (ALCOHOL PREP PADS) Use as directed to check glucose levels up to seven times daily. - aspirin, enteric coated (ECOTRIN LOW STRENGTH) 81 mg EC tablet Take 1 tablet by mouth once daily. - PNV 356-jyzvc-orair-3-fish oil 400-32.5 mcg-mg chew Problem List As Of Date 01/05/2025 Noted Resolved Class 2 obesity without serious comorbidity wit*03/09/2018 12/07/2023 Vitamin D deficiency [E55.9] 12/16/2018 SAMAN (generalized anxiety disorder) [F41.1] 12/16/2018 History of gastroesophageal reflux (GERD) [Z87.*12/16/2018 Allergic rhinitis, unspecified [J30.9] 12/16/2018 Ex-smoker [Z87.891] 12/16/2018 Psoriasis [L40.9] 12/16/2018 Encounter for insertion of mirena IUD [Z30.430] 12/16/2018 12/07/2023 Acute deep vein thrombosis (DVT) of popliteal v*02/202212/07/2023 IUD (intrauterine device) in place [Z97.5] 11/06/2022 12/07/2023 Polycystic ovary syndrome [E28.2] 12/17/2022 Obesity, Class II, BMI 35-39.9 [E66.812] 07/02/2023 07/06/2023 Obesity complicating , second trimeste*07/06/2023 Liver hemangioma [D18.03] 09/16/2023 Vapes nicotine containing substance [Z72.0] 10/01/2023 Acute deep vein thrombosis (DVT) of right upper*10/01/2023 Supervision of high risk in second tr*08/18/2024 History of maternal fourth degree perineal lace*08/18/2024 Rectovaginal fistula [N82.3] 08/18/2024 History of gestational diabetes in prior pregna*09/19/2024 History of forceps delivery in prior ,*09/19/2024 Elevated glucose tolerance test [R73.09] 12/29/2024 Diet controlled gestational diabetes mellitus (*12/30/2024 Encounter Status:Closed by MARIETTA WERNER on 01/05/25 Normal [facility] Fibronectinon 01-06-20 fFIBRONECTIN Negative Normal [facility] Comment on above: Performed By: #### L 205.0000 ####[facility] [address] [place], [place], [id number] Fibronectin. (Vag fld) [Mass/Vol]Ordered By: Topher Causey on 01-05-2025 Fibronectin Negative [facility] Glucose Ql (U)Ordered By: Stephan Lugo on 01-05-2025 Urine Glucose (UA) Normal mg/dl Normal [facility] Ketones Test strip Ql (U)Ord ered By: Marietta Lugo on 01-05-2025 Ketones Ql (U) Negative Negative [facility] Nitrite Test strip Ql (U)Ord ered By: Marietta Lugo on 01-05-2025 Nitrite Ql (U) Negative Negative [facility] Protein Test strip Ql (U)Ord ered By: Marietta Lugo on 01-05-2025 Protein Ql (U) Negative Negative [facility] Urinalysis, Routine (Dipstic k)on 01-05-2025 BILIRUBIN URINE Negative Normal Negative [facility] Comment on above: Order Comment: COLLE CTOR TO SPECIFY Performed By: #### L 400.2010 ####[facility] [address] [place], [address] Clarity (U) Clear Normal Clear [facility] Comment on above: Order Comment: COLLE CTOR TO SPECIFY Performed By: #### L 400.2010 ####[facility] [address] [place], [address] Color (U) Straw Normal Yellow [facility] Comment on above: Order Comment: COLLE CTOR TO SPECIFY Performed By: #### L 400.2010 ####[facility] [address] [place], [address] GLUCOSE, UR Normal Normal Normal [facility] Comment on above: Order Comment: COLLE CTOR TO SPECIFY Performed By: #### L 400.2010 ####[facility] [address] [place], [address] KETONE UR Negative Normal Negative [facility] Comment on above: Order Comment: COLLE CTOR TO SPECIFY Performed By: #### L 400.2010 ####[facility] [address] [place], [address] LEUK ESTERASE Negative Normal Negative [facility] Comment on above: Order Comment: COLLE CTOR TO SPECIFY Performed By: #### L 400.2010 ####[facility] [address] [place], [address] Nitrite Ql (U) Negative Normal Negative [facility] Comment on above: Order Comment: COLLE CTOR TO SPECIFY Performed By: #### L 400.2010 ####[facility] [address] [place], [address] OCCULT BLOOD-UR Negative Normal Negative [facility] Comment on above: Order Comment: COLLE CTOR TO SPECIFY Performed By: #### L 400.2010 ####[facility] [address] [place], [address] pH UR 7.0 Normal 5.0 - 8.0 [facility] Comment on above: Order Comment: DANIELLE CTOR TO SPECIFY Performed By: #### L 400.2010 ####[facility] [address] [place], [address] PROT DIPSTX Negative Normal Negative [facility] Comment on above: Order Comment: DANIELLE CTOR TO SPECIFY Performed By: #### L 400.2010 ####[facility] [address] [place], [address] SP.GR. DIPSTX 1.005 Normal 1.002-1.030 [facility] Comment on above: Order Comment: DANIELLE CTOR TO SPECIFY Performed By: #### L 400.2010 ####[facility] [address] [place], [address] UROBILI Normal Normal Normal [facility] Comment on above: Order Comment: DANIELLE CTOR TO SPECIFY Performed By: #### L 400.2010 ####[facility] [address] [place], [address] Urine blood detectionOrdered By: Marietta Lugo on 01-05-2025 Urine Occult Blood Negative Negative [facility] Urine clarityOrdered By: uYmi Lugo on 01-05-2025 Clarity (U) Clear Clear [facility] Urine color determinationOrd ered By: Marietta Lugo on 01-05-2025 Color (U) Straw Yellow [facility] Urine leukocyte esterase det ection by dipstickOrdered By: Marietta Lugo on 01-05-2025 Leukocyte esterase Test strip Ql (U) Negative Negative [facility] Urine pHOrdered By: Marietta Lugo on 01-05-2025 pH (U) 7.0 [pH] 5.0 - 8.0 [facility] Urine specific gravity measu rementOrdered By: Marietta Lugo on 01-05-2025 Specific gravity (U) [Rel density] 1.005 1.002-1.030 [facility] Urobilinogen Ql (U)Ordered B y: Marietta Lugo on 01-05-2025 Urine Urobilinogen Normal mg/dl Normal [facility] GLUCOSE GESTATIONAL, 1 HOURo n 12-30-2024 Glucose 1 Hr post Unsp challenge [Mass/Vol] 199 mg/dL High 74-179 [facility] Comment on above: Order Comment: Speci diogo Type: BLOOD SPECIMENOrdering Facility: [facility] Address: [address] [place] [address] Result Comment: [facility] Congress of Obstetricians and Gynecologists (Pe Ell/Coustan) guidelines state gestational diabetes mellitus is present when 2 or more of the plasma glucose concentrations meet or exceed the following levels: fastin mg/dl, 1 hr: 180 mg/dl, 2 hr: 155 mg/dl, and 3 hr: 140 mg/dl. Performed By: #### G TGST1 ####[facility] [id number] [place] [address] [place] GLUCOSE GESTATIONAL, FASTING on 12-30-2024 Glucose post fast [Mass/Vol] 95 mg/dL High 74-94 [facility] Comment on above: Order Comment: Speci men Type: BLOOD SPECIMEN Ordering Facility: [facility] Address: [address] [place] [address] Result Comment: [facility] Congress of Obstetricians and Gynecologists ([facility]) guidelines state gestational diabetes mellitus is present when 2 or more of the plasma glucose concentrations meet or exceed the following levels: fastin mg/dl, 1 hr: 180 mg/dl, 2 hr: 155 mg/dl, and 3 hr: 140 mg/dl. Performed By: #### G TGSTF #### [facility] CLIA [id number] [address] [place] CBC W Auto Differential pane l (Bld)on 12-29-2024 Basophils (Bld) [#/Vol] 10*3/uL Normal <0.11 [facility] Comment on above: Order Comment: Speci men Type: BLOOD SPECIMEN Ordering Facility: [facility] Address: [address] [place] [address] Performed By: #### 2 4323-8 #### [facility] CLIA [id number] [address] [place] [address] [place] Basophils/100 WBC (Bld) 0.3 % Normal [facility] Comment on above: Order Comment: Speci men Type: BLOOD SPECIMEN Ordering Facility: [facility] Address: [address] [place] [address] Performed By: #### 2 4323-8 #### [facility] CLIA [id number] [address] [place] [address] [place] Differential cell count method Nom (Bld) Auto Normal [facility] Comment on above: Order Comment: Speci men Type: BLOOD SPECIMEN Ordering Facility: [facility] Address: [address] [place] [address] Performed By: #### 2 4323-8 #### [facility] CLIA [id number] [address] [place] [address] [place] Eosinophils (Bld) [#/Vol] 0.05 10*3/uL Normal <0.46 [facility] Comment on above: Order Comment: Speci men Type: BLOOD SPECIMEN Ordering Facility: [facility] Address: [address] [place] [address] Performed By: #### 2 4323-8 #### [facility] CLIA [id number] [address] [place] [address] [place] Eosinophils/100 WBC (Bld) 0.6 % Normal [facility] Comment on above: Order Comment: Speci men Type: BLOOD SPECIMEN Ordering Facility: [facility] Address: [address] [place] [address] Performed By: #### 2 4323-8 #### [facility] CLIA [id number] [address] [place] [address] [place] Erythrocyte distribution width (RBC) [Ratio] 12.8 % Normal 11.5-15.0 [facility] Comment on above: Order Comment: Speci men Type: BLOOD SPECIMEN Ordering Facility: [facility] Address: [address] [place] [address] Performed By: #### 2 4323-8 #### [facility] CLIA [id number] [address] [place] [address] [place] Hematocrit (Bld) [Volume fraction] 34.0 % Low 36.0-46.0 [facility] Comment on above: Order Comment: Speci men Type: BLOOD SPECIMEN Ordering Facility: [facility] Address: [address] [place] [address] Performed By: #### 2 4323-8 #### [facility] CLIA [id number] [address] [place] [address] [place] Hemoglobin (Bld) [Mass/Vol] 11.3 g/dL Low 11.5-15.5 [facility] Comment on above: Order Comment: Speci men Type: BLOOD SPECIMEN Ordering Facility: [facility] Address: [address] [place] [address] Performed By: #### 2 4323-8 #### [facility] CLIA [id number] [address] [place] [address] [place] Immature granulocytes (Bld) [#/Vol] 0.05 10*3/uL Normal <0.10 [facility] Comment on above: Order Comment: Speci men Type: BLOOD SPECIMEN Ordering Facility: [facility] Address: [address] [place] [address] Performed By: #### 2 4323-8 #### [facility] CLIA [id number] [address] [place] [address] [place] Immature granulocytes/100 WBC (Bld) 0.6 % Normal [facility] Comment on above: Order Comment: Speci men Type: BLOOD SPECIMEN Ordering Facility: [facility] Address: [address] [place] [address] Performed By: #### 2 4323-8 #### [facility] CLIA [id number] [address] [place] [address] [place] Lymphocytes (Bld) [#/Vol] 1.35 10*3/uL Normal 1.00-4.00 [facility] Comment on above: Order Comment: Speci men Type: BLOOD SPECIMEN Ordering Facility: [facility] Address: [address] [place] [address] Performed By: #### 2 4323-8 #### [facility] CLIA [id number] [address] [place] [address] [place] Lymphocytes/100 WBC (Bld) 17.4 % Normal [facility] Comment on above: Order Comment: Speci men Type: BLOOD SPECIMEN Ordering Facility: [facility] Address: [address] [place] [address] Performed By: #### 2 4323-8 #### [facility] CLIA [id number] [address] [place] [address] [place] MCH (RBC) [Entitic mass] 29.1 pg Normal 26.0-34.0 [facility] Comment on above: Order Comment: Speci men Type: BLOOD SPECIMEN Ordering Facility: [facility] Address: [address] [place] [address] Performed By: #### 2 4323-8 #### [facility] CLIA [id number] [address] [place] [address] [place] MCHC (RBC) [Mass/Vol] 33.2 g/dL Normal 30.5-36.0 [facility] Comment on above: Order Comment: Speci men Type: BLOOD SPECIMEN Ordering Facility: [facility] Address: [address] [place] [address] Performed By: #### 2 4323-8 #### [facility] CLIA [id number] [address] [place] [address] [place] MCV (RBC) [Entitic vol] 87.6 fL Normal 80.0-100.0 [facility] Comment on above: Order Comment: Speci men Type: BLOOD SPECIMEN Ordering Facility: [facility] Address: [address] [place] [address] Performed By: #### 2 4323-8 #### [facility] CLIA [id number] [address] [place] [address] [place] Monocytes (Bld) [#/Vol] 0.41 10*3/uL Normal <0.87 [facility] Comment on above: Order Comment: Speci men Type: BLOOD SPECIMEN Ordering Facility: [facility] Address: [address] [place] [address] Performed By: #### 2 4323-8 #### [facility] CLIA [id number] [address] [place] [address] [place] Monocytes/100 WBC (Bld) 5.3 % Normal [facility] Comment on above: Order Comment: Speci men Type: BLOOD SPECIMEN Ordering Facility: [facility] Address: [address] [place] [address] Performed By: #### 2 4323-8 #### [facility] CLIA [id number] [address] [place] [address] [place] Neutrophils (Bld) [#/Vol] 5.90 10*3/uL Normal 1.45-7.50 [facility] Comment on above: Order Comment: Speci men Type: BLOOD SPECIMEN Ordering Facility: [facility] Address: [address] [place] [address] Performed By: #### 2 4323-8 #### [facility] CLIA [id number] [address] [place] [address] [place] Neutrophils/100 WBC (Bld) 75.8 % Normal [facility] Comment on above: Order Comment: Speci men Type: BLOOD SPECIMEN Ordering Facility: [facility] Address: [address] [place] [address] Performed By: #### 2 4323-8 #### [facility] CLIA [id number] [address] [place] [address] [place] Nucleated RBC (Bld) [#/Vol] 10*3/uL Normal <0.01 [facility] Comment on above: Order Comment: Speci men Type: BLOOD SPECIMEN Ordering Facility: [facility] Address: [address] [place] [address] Performed By: #### 2 4323-8 #### [facility] CLIA [id number] [address] [place] [address] [place] Nucleated RBC/100 WBC (Bld) [Ratio] 0.0 /100 WBC Normal [facility] Comment on above: Order Comment: Speci men Type: BLOOD SPECIMEN Ordering Facility: [facility] Address: [address] [place] [address] Performed By: #### 2 4323-8 #### [facility] CLIA [id number] [address] [place] [address] [place] Platelet mean volume (Bld) [Entitic vol] 8.7 fL Low 9.0-12.7 [facility] Comment on above: Order Comment: Speci men Type: BLOOD SPECIMEN Ordering Facility: [facility] Address: [address] [place] [address] Performed By: #### 2 4323-8 #### [facility] CLIA [id number] [address] [place] [address] [place] Platelets (Bld) [#/Vol] 270 10*3/uL Normal 150-400 [facility] Comment on above: Order Comment: Speci men Type: BLOOD SPECIMEN Ordering Facility: [facility] Address: [address] [place] [address] Performed By: #### 2 4323-8 #### [facility] CLIA [id number] [address] [place] [address] [place] RBC (Bld) [#/Vol] 3.88 10*6/uL Low 3.90-5.[address] [facility] Comment on above: Order Comment: Speci men Type: BLOOD SPECIMEN Ordering Facility: [facility] Address: [address] [place] [address] Performed By: #### 2 4323-8 #### [facility] CLIA [id number] [address] [place] [address] [place] WBC (Bld) [#/Vol] 7.78 10*3/uL Normal 3.70-11.[address] [facility] Comment on above: Order Comment: Speci men Type: BLOOD SPECIMEN Ordering Facility: [facility] Address: [address] [place] [address] Performed By: #### 2 4323-8 #### [facility] CLIA [id number] [address] [place] [address] [place] GESTATIONAL GLUCOSE SCREEN, 1-HOUR, 50 GRAM, NON-FASTINGon 12-29-2024 Glucose [Mass/Vol] 168 mg/dL High 74-134 [facility] Comment on above: Order Comment: Speci men Type: BLOOD SPECIMEN Ordering Facility: [facility] Address: [address] [place] [address] Result Comment: [facility] [employer] of Obstetricians and Gynecologists (Lozano/Fallon) guidelines state a gestational diabetes mellitus positive screen is made, in women not previously diagnosed with overt diabetes, when the 1 hr plasma glucose level is equal to or above 140 mg/dL. The [facility] [employer] and [facility] Irene recommends a 135 mg/dL cutoff. Performed By: #### 2 1198-7 #### [facility] CLIA [id number] [address] [place] [address] [place] Reagin and Treponema pallidu m IgG and IgM [Interp]on 12-29-2024 T. pallidum IgG+IgM IA Ql (S) Non-Reactive Normal Nonreactive [facility] Comment on above: Order Comment: Festus lind Type: BLOOD SPECIMEN Ordering Facility: [facility] Address: [address] [place] [address] Performed By: #### 2 4323-8 #### [facility] CLIA [id number] [address] [place] [address] [place] Reagin+T pallidum IgG+IgM Se rPl-Impon 12-29-2024 Reagin and Treponema pallidum IgG and IgM [Interp] Cannot exclude recent Treponemal infection if specimen collected within 7-10 days after appearance of suspect lesions or 2-3 weeks after an exposure. Clinical correlation is required. Normal [facility] Comment on above: Order Comment: Festus lind Type: BLOOD SPECIMEN Ordering Facility: [facility] Address: [address] [place] [address] Performed By: #### 2 4323-8 #### [facility] CLIA [id number] [address] [place] [address] [place] CNPNon 12-22-2024 CNPN Telephone (OBGYWM) LEELEE ZAMORA ([id number]) 1995 F Date Time Provider Department 12/22/24 TAHMINA DUMONT OBGYWJeffrey During your visit today, we recorded the following information about you: Marietta Werner, RN 12/22/2024 3:22 PM Signed 25w5d Patient had an ultrasound done at [facility]. They advised patient that her amniotic fluid looks low and the baby is all scrunched in there. Patient anxious and asking what she should do. Normal fluid level at her anatomy on 11/15. Care Center told patient that they would not be able to fax the report to our office. Asked patient to speak with them and see what the reading physician reports about her scan. Please advise. TERRY Emerson Karmon, MD 12/22/2024 3:43 PM Signed The care center does not provide formal US at this stage of . Please have her keep her formal US as scheduled on 01/10/25. MD Debbi Bustamante Jennifer, RN 12/22/2024 4:26 PM Signed Patient notified. Marietta Werner RN Allergies As of Date: 12/22/2024 Noted Allergy Reaction CAT DANDER 07/22/2023 4 - Hives CRANBERRY 07/22/2023 2 - Rash HOUSE DUST 07/22/2023 4 - Hives MOLD 07/22/2023 14 - Other: See Comments PEANUT 07/22/2023 7 - Swelling TREE NUTS 07/02/2022 2 - Rash MORPHINE 03/23/2017 14 - Other: See Comments Comments: Tightness in chest Date Reviewed: 12/15/2024 Reviewed by: Marietta Lugo MD - Fully Assessed Prescriptions as of 12/22/2024 - aspirin, enteric coated (ECOTRIN LOW STRENGTH) 81 mg EC tablet Take 1 tablet by mouth once daily. - PNV 376-yvpik-jpwyh-3-fish oil 400-32.5 mcg-mg chew Problem List As Of Date 12/22/2024 Noted Resolved Class 2 obesity without serious comorbidity wit*03/09/2018 12/07/2023 Vitamin D deficiency [E55.9] 12/16/2018 SAMAN (generalized anxiety disorder) [F41.1] 12/16/2018 History of gastroesophageal reflux (GERD) [Z87.*12/16/2018 Allergic rhinitis, unspecified [J30.9] 12/16/2018 Ex-smoker [Z87.891] 12/16/2018 Psoriasis [L40.9] 12/16/2018 Encounter for insertion of mirena IUD [Z30.430] 12/16/2018 12/07/2023 Acute deep vein thrombosis (DVT) of popliteal v*02/202212/07/2023 IUD (intrauterine device) in place [Z97.5] 11/06/2022 12/07/2023 Polycystic ovary syndrome [E28.2] 12/17/2022 Obesity, Class II, BMI 35-39.9 [E66.812] 07/02/2023 07/06/2023 Obesity complicating , second trimeste*07/06/2023 Liver hemangioma [D18.03] 09/16/2023 Vapes nicotine containing substance [Z72.0] 10/01/2023 Acute deep vein thrombosis (DVT) of right upper*10/01/2023 Supervision of high risk in second tr*08/18/2024 History of maternal fourth degree perineal lace*08/18/2024 Rectovaginal fistula [N82.3] 08/18/2024 History of gestational diabetes in prior pregna*09/19/2024 History of forceps delivery in prior ,*09/19/2024 Encounter Status:Closed by MARIETTA WERNER on 12/22/24 [facility] 12-19-2024 CNPN Telephone ([id number]) LEELEE ZAMOAR ([id number]) 1995 F Date Time Provider Department 12/19/24 MARIETTA COBB [id number] During your visit today, we recorded the following information about you: Marietta Cobb RN 12/19/2024 8:43 AM Signed 2nd risk assessment form submitted 12/19/2024. Marietta Cobb RN Allergies As of Date: 12/19/2024 Noted Allergy Reaction CAT DANDER 07/22/2023 4 - Hives CRANBERRY 07/22/2023 2 - Rash HOUSE DUST 07/22/2023 4 - Hives MOLD 07/22/2023 14 - Other: See Comments PEANUT 07/22/2023 7 - Swelling TREE NUTS 07/02/2022 2 - Rash MORPHINE 03/23/2017 14 - Other: See Comments Comments: Tightness in chest Date Reviewed: 12/15/2024 Reviewed by: Marietta Lugo MD - Fully Assessed Reason for Visit: Weed Thinner - Other [3602] Cmt: PRAF Prescriptions as of 12/19/2024 - aspirin, enteric coated (ECOTRIN LOW STRENGTH) 81 mg EC tablet Take 1 tablet by mouth once daily. - PNV 420-usmsg-ubxpv-3-fish oil 400-32.5 mcg-mg chew Problem List As Of Date 12/19/2024 Noted Resolved Class 2 obesity without serious comorbidity wit*03/09/2018 12/07/2023 Vitamin D deficiency [E55.9] 12/16/2018 SAMAN (generalized anxiety disorder) [F41.1] 12/16/2018 History of gastroesophageal reflux (GERD) [Z87.*12/16/2018 Allergic rhinitis, unspecified [J30.9] 12/16/2018 Ex-smoker [Z87.891] 12/16/2018 Psoriasis [L40.9] 12/16/2018 Encounter for insertion of mirena IUD [Z30.430] 12/16/2018 12/07/2023 Acute deep vein thrombosis (DVT) of popliteal v*02/202212/07/2023 IUD (intrauterine device) in place [Z97.5] 11/06/2022 12/07/2023 Polycystic ovary syndrome [E28.2] 12/17/2022 Obesity, Class II, BMI 35-39.9 [E66.812] 07/02/2023 07/06/2023 Obesity complicating , second trimeste*07/06/2023 Liver hemangioma [D18.03] 09/16/2023 Vapes nicotine containing substance [Z72.0] 10/01/2023 Acute deep vein thrombosis (DVT) of right upper*10/01/2023 Supervision of high risk in second tr*08/18/2024 History of maternal fourth degree perineal lace*08/18/2024 Rectovaginal fistula [N82.3] 08/18/2024 History of gestational diabetes in prior pregna*09/19/2024 History of forceps delivery in prior ,*09/19/2024 Encounter Status:Closed by MARIETTA COBB on 12/19/24 Normal [facility] Examination level ultrasound on 11-15-2024 Indication Detailed anatomic survey Maternal obesity, BMI >35, History of DVT Impression The patient is referred for a detailed anatomic survey. - Single, live, intrauterine . - biometry is consistent with the established gestational age. - No malformations were visualized on a complete detailed anatomic survey. - The amniotic fluid volume is normal amount. - The placenta is posterior, fundal. - The Transabdominal cervical length measures 39.4 mm with no evidence of funneling or other dynamic changes. - Not all structural malformations can be detected by ultrasound examination. Recommendations Monthly grow ultrasound at 28 weeks Maternal Assessment Height 157 cm Height (ft) 5 ft Height (in) 2 in Physical Exam Initial weight (lb) 204 lb Initial BMI 37.31 kg/m Maternal assessment other: 2 Para 1 Method Transabdominal ultrasound examination. View: Adequate visualization Roach . Number of fetuses: 1 Dating LMP on: 06/25/2024 GA by LMP 20 w + 3 d MJ by LMP: 04/01/2025 GA by prior assessment 20 w + 3 d MJ by prior assessment: 04/01/2025 Ultrasound examination on: 11/15/2024 GA by U/S based upon: AC, BPD, Femur, HC GA by U/S 20 w + 4 d MJ by U/S: 03/31/2025 Assigned: based on stated MJ, selected on 11/15/2024 Assigned GA 20 w + 3 d Assigned MJ: 04/01/2025 General Evaluation Cardiac activity present. FHR 151 bpm. movements: present. Presentation: cephalic Placenta: Placental site: posterior, fundal Umbilical cord: Cord vessels: 3 vessel cord Amniotic fluid: Amount of AF: normal amount. MVP 4.7 cm Growth Overview Exam date GA BPD (mm) HC (mm) AC (mm) FL (mm) HL (mm) EFW (g) 11/15/2024 20w 3d 47.9 52% 175.1 37% 158.3 62% 33.8 71% 31 45% 368 57% Biometry Standard BPD 47.9 mm 20w 3d 52% Hadlock OFD 61.0 mm 19w 5d 36% Nicolaides HC 175.1 mm 20w 0d 37% Arcadio Cerebellum tr 20.9 mm 19w 6d 51% Hill Nuchal fold 4.6 mm AC 158.3 mm 21w 0d 62% Hadlock Femur 33.8 mm 20w 6d 71% Arcadio Humerus 31.0 mm 20w 2d 45% Arcadio EFW 368 g 20w 4d 57% Hadlock EFW (lb) 0 lb EFW (oz) 13 oz EFW by: Hadlock (HC-AC-FL) Extended Supervisor [employer] 6.1 mm CM 5.5 mm 63% Nicolaides Extremities / Bony Struc FL / HC 0.19 55% Hadlock Other Structures FHR 151 bpm Anatomy Cranium: normal Lateral ventricles: normal Choroid plexus: normal Midline falx: normal Cavum septi pellucidi: normal Cerebellum: normal Cisterna magna: normal Head / Neck Vermis: normal Neck: normal Nuchal fold: normal Lips: normal Profile: normal Nose: normal Face Maxilla: normal Mandible: normal Orbits: normal Lens: normal 4-chamber view: normal RVOT view: normal LVOT view: normal 3-vessel view: normal 5-buerza-opldwey view: normal Heart / Thorax Situs: situs solitus (normal) Aortic arch view: normal SVC: normal IVC: normal Cardiac axis: normal Rt lung: normal Lt lung: normal Diaphragm: normal Cord insertion: normal Stomach: normal Kidneys: normal Bladder: normal Genitals: normal Abdomen Abdom. wall: normal Cervical spine: normal Thoracic spine: normal Lumbar spine: normal Sacral spine: normal Arms: normal Legs: normal Rt upper arm: normal Rt forearm: normal Rt hand: normal Rt fingers: normal Lt upper arm: normal Lt forearm: normal Lt hand: normal Lt fingers: normal Rt upper leg: normal Rt lower leg: normal Rt foot: normal Lt upper leg: normal Lt lower leg: normal Lt foot: normal sex: male Wants to know sex: yes Maternal Structures Uterus / Cervix Uterus: Visualized Cervix: Visualized Approach: Transabdominal Cervical length 39.4 mm Other: Patient declined transvaginal ultrasound for cervical length. Ovaries / Tubes / Adnexa Rt ovary: Visualized Lt ovary: Visualized Performed By: Tatyana Chisholm RDMS, RVT Read By: Winter Nation M.D. MATERNAL MEDICINE [facility] Radiology Study observation (narrative) [facility] Absolute neutrophil countOrd ered By: Yovani Uriostegui on 01-19-2025 Neutrophils (Bld) [#/Vol] 9.3 10*3/uL High 2.0-7.7 [facility] Basic Metabolic Profile (BMP )on 10-30-2024 BUN/CRE 20.5 RATIO High 10-20 [facility] Comment on above: Performed By: #### L 100.0100, L500.2500, L500.3400, L501.2450 ####[facility] [address] [place], [address] CA,Total 8.8 mg/dL Normal 8.5-10.1 [facility] Comment on above: Performed By: #### L 100.0100, L500.2500, L500.3400, L501.2450 ####[facility] [address] [place], [address] Chloride [Moles/Vol] 109 mmol/L High 98-107 [facility] Comment on above: Performed By: #### L 100.0100, L500.2500, L500.3400, L501.2450 ####[facility] [address] [place], [address] CO2 [Moles/Vol] 18.0 mmol/L Low 21.0-32.0 [facility] Comment on above: Performed By: #### L 100.0100, L500.2500, L500.3400, L501.2450 ####[facility] [address] [place], [address] Creatinine [Mass/Vol] 0.54 mg/dL Low 0.55-1.02 [facility] Comment on above: Result Comment: The validity of the calculated GFR GFRAA in patients over 70 years has not been determined. Clinical correlation is essential. Performed By: #### L 100.0100, L500.2500, L500.3400, L501.2450 ####[facility] [address] [place], [address] ECRCL 175.40 ml/min Normal [facility] Comment on above: Performed By: #### L 100.0100, L500.2500, L500.3400, L501.2450 ####[facility] [address] [place], [address] EST GFR - AA 172 mL/min Normal >60 [facility] Comment on above: Result Comment: Afri can [place] GFR Calc Performed By: #### L 100.0100, L500.2500, L500.3400, L501.2450 ####[facility] [address] [place], [address] GAP 9 Normal 5-15 [facility] Comment on above: Performed By: #### L 100.0100, L500.2500, L500.3400, L501.2450 ####[facility] [address] [place], [address] GFR/1.73 sq M.predicted among non-blacks MDRD (S/P/Bld) [Vol rate/Area] 142 mL/min/{1.73_m2} Normal >60 [facility] Comment on above: Result Comment: Non- GFR Calc Performed By: #### L 100.0100, L500.2500, L500.3400, L501.2450 ####[facility] [address] [place], [address] Glucose [Mass/Vol] 139 mg/dL High 74-106 [facility] Comment on above: Result Comment: Fast ing Glucose result greater than or equal to 126 mg/dL suggests DIABETES MELLITUS per A.D.A. criteria. Performed By: #### L 100.0100, L500.2500, L500.3400, L501.2450 ####[facility] [address] [place], [address] Potassium [Moles/Vol] 3.6 mmol/L Normal 3.5-5.1 [facility] Comment on above: Performed By: #### L 100.0100, L500.2500, L500.3400, L501.2450 ####[facility] [address] [place], [address] Sodium [Moles/Vol] 136 mmol/L Normal 136-145 [facility] Comment on above: Performed By: #### L 100.0100, L500.2500, L500.3400, L501.2450 ####[facility] [address] [place], [address] Urea nitrogen [Mass/Vol] 11 mg/dL Normal 7-18 [facility] Comment on above: Performed By: #### L 100.0100, L500.2500, L500.3400, L501.2450 ####[facility] [address] [place], [address] Basophil percentageOrdered B y: Yovani Uriostegui on 10-30-2024 Basophils/100 WBC (Bld) 0.3 % 0-1 [facility] Bilirubin directOrdered By: Yovani Uriostegui on 10-30-2024 Bilirubin.direct [Mass/Vol] 0.25 mg/dL 0.00-0.30 [facility] Bilirubin, totalOrdered By: Yovani Uriostegui on 10-30-2024 Bilirubin [Mass/Vol] 1.20 mg/dL High 0.20-1.00 [facility] Comment on above: For patients on eltr ombopag therapy, use of Dimension [place] TBIL is not recommended. Blood urea nitrogen (BUN)/cr eatinine ratioOrdered By: Yovani Uriostegui on 10-30-2024 Urea nitrogen/Creatinine [Mass ratio] 20.5 mg/mg High 10-20 [facility] CBC W/Diff, Automatedon 10-12 Absolute Lymph 0.42 X10 3/uL Low 0.83-4.51 [facility] Comment on above: Performed By: #### L 100.0100, L500.2500, L500.3400, L501.2450 ####[facility] [address] [place], [address] Absolute Neut 9.3 X10 3/uL High 2.0-7.7 [facility] Comment on above: Performed By: #### L 100.0100, L500.2500, L500.3400, L501.2450 ####[facility] [address] [place], [address] Basophils/100 WBC (Bld) 0.3 % Normal 0-1 [facility] Comment on above: Performed By: #### L 100.0100, L500.2500, L500.3400, L501.2450 ####[facility] [address] [place], [address] Eosinophils/100 WBC (Bld) 0.1 % Normal 0-5 [facility] Comment on above: Performed By: #### L 100.0100, L500.2500, L500.3400, L501.2450 ####[facility] [address] [place], [address] Erythrocyte distribution width (RBC) [Ratio] 12.8 % Normal 11.6-14.6 [facility] Comment on above: Performed By: #### L 100.0100, L500.2500, L500.3400, L501.2450 ####[facility] [address] [place], [address] Hematocrit (Bld) [Volume fraction] 39.6 % Normal 37-47 [facility] Comment on above: Performed By: #### L 100.0100, L500.2500, L500.3400, L501.2450 ####[facility] [address] [place], [address] Hemoglobin (Bld) [Mass/Vol] 13.5 g/dL Normal 12.0-15.0 [facility] Comment on above: Performed By: #### L 100.0100, L500.2500, L500.3400, L501.2450 ####[facility] [address] [place], [address] IG% 0.900 Normal 0.0-0.9 [facility] Comment on above: Result Comment: IG% - Immature Granulocytes (promyelocytes, myelocytes and metamyelocytes) > 1% indicates that a LEFT SHIFT is Present. Performed By: #### L 100.0100, L500.2500, L500.3400, L501.2450 ####[facility] [address] [place], [address] Lymphocytes/100 WBC (Bld) 4.1 % Low 19-41 [facility] Comment on above: Performed By: #### L 100.0100, L500.2500, L500.3400, L501.2450 ####[facility] [address] [place], [address] MCH (RBC) [Entitic mass] 30.3 pg Normal 27.0-32.0 [facility] Comment on above: Performed By: #### L 100.0100, L500.2500, L500.3400, L501.2450 ####[facility] [address] [place], [address] MCHC (RBC) [Mass/Vol] 34.1 g/dL Normal 32-36 [facility] Comment on above: Performed By: #### L 100.0100, L500.2500, L500.3400, L501.2450 ####[facility] [address] [place], [address] MCV (RBC) [Entitic vol] 88.8 fL Normal 81-99 [facility] Comment on above: Performed By: #### L 100.0100, L500.2500, L500.3400, L501.2450 ####[facility] [address] [place], [address] Monocytes/100 WBC (Bld) 3.4 % Normal 0-10 [facility] Comment on above: Performed By: #### L 100.0100, L500.2500, L500.3400, L501.2450 ####[facility] [address] [place], [address] Neutrophils/100 WBC (Bld) 91.2 % High 47-70 [facility] Comment on above: Performed By: #### L 100.0100, L500.2500, L500.3400, L501.2450 ####[facility] [address] [place], [address] Nucleated RBC (Bld) [#/Vol] 0 10*3/uL Normal 0-5 [facility] Comment on above: Performed By: #### L 100.0100, L500.2500, L500.3400, L501.2450 ####[facility] [address] [place], [address] Platelet mean volume (Bld) [Entitic vol] 8.2 fL Normal 6.2-12.0 [facility] Comment on above: Performed By: #### L 100.0100, L500.2500, L500.3400, L501.2450 ####[facility] [address] [place], [address] Platelets (Bld) [#/Vol] 249 10*3/uL Normal 150-450 [facility] Comment on above: Performed By: #### L 100.0100, L500.2500, L500.3400, L501.2450 ####[facility] [address] [place], [address] RBC (Bld) [#/Vol] 4.46 10*6/uL Normal 4.2-5.4 [facility] Comment on above: Performed By: #### L 100.0100, L500.2500, L500.3400, L501.2450 ####[facility] [address] [place], [address] RDW SD 41.7 fl Normal 35.1-43.9 [facility] Comment on above: Performed By: #### L 100.0100, L500.2500, L500.3400, L501.2450 ####[facility] [address] [place], [address] WBC (Bld) [#/Vol] 10.2 10*3/uL Normal 4.4-11.0 [facility] Comment on above: Performed By: #### L 100.0100, L500.2500, L500.3400, L501.2450 ####[facility] [address] [place], [address] Carbon dioxide measurementOr dered By: Yovani Uriostegui on 10-30-2024 CO2 [Moles/Vol] 18.0 mmol/L Low 21.0-32.0 [facility] Chloride measurementOrdered By: Yovani Uriostegui on 10-30-2024 Chloride [Moles/Vol] 109 mmol/L High 98-107 [facility] Emergency Department Summary on 10-30-2024 Emergency Department Summary [facility] Medical Records Department [address] [place] [address] Emergency Department Summary 10/30/24 MR#: [id number] Acct: [id number] Name: LEELEE ZAMORA Rep #: [id number] : 1995 29 From: Yovani Uriostegui DO PCP: Dr. Alfredo Barroso MD Status:REG ER Location: ED HPI History of Present Illness Chief Complaint: Nausea/Vomiting/Diarrhe a Informant: patient Narrative Narrative: Patient is a female approximately 18 weeks . She has a past medical history of anxiety as well as GERD and ADHD. With her first she had a traumatic labor and this led to uterine rupture with need for surgery and subsequent small bowel obstruction. Patient denies any repeat obstruction since that time. She does state that she has remote history of C. difficile and recently took a 7-day course of amoxicillin followed by a 7-day course of Flagyl for facial cellulitis/dental infection. She reports that this evening after returning home from work she began to have subjective fever and chills. Following this she began with recurrent bouts of vomiting and loose stool/diarrhea. She denies any blood or discoloration to them. 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 based on her recent antibiotic use and past history of the infection and therefore comes in for evaluation [facility] Medical History Hypotension Dizziness Vitamin D deficiency PCOS (polycystic ovarian syndrome) Obesity GERD (gastroesophageal reflux disease) Hx of deep venous thrombosis History of post traumatic stress disorder SBO (small bowel obstruction) Endometritis Chronic pain Post traumatic stress disorder (PTSD) ADHD (attention deficit hyperactivity disorder) Anxiety Home Medications ???Medication ???Instructions ???Recorded ???Last Taken ???Type aspirin 81 mg tablet,delayed 81 mg PO QDAY 09/28/24 Unknown History release vitamin no.102-iron 90 1 cap PO QDAY 09/28/24 Unknown History mg-folate 1 mg-dha 200 mg capsule dicyclomine 20 mg tablet 20 mg PO 4X/DAY PRN Abdominal 10/30/24 Unknown Rx bloating/spasm #28 tabs ondansetron 4 mg disintegrating 4 mg PO TID PRN nausea and 10/30/24 Unknown Rx tablet vomiting #21 tabs Allergy/AdvReac Type Severity Reaction Status Date / Time cat dander Allergy Hives Verified 10/30/24 04:18 house dust Allergy Hives Verified 10/30/24 04:18 peanut Allergy Swelling Verified 10/30/24 04:18 cranberry AdvReac Rash Verified 10/30/24 04:18 mold AdvReac Other Verified 10/30/24 04:18 morphine AdvReac Chest Verified 10/30/24 04:18 tightness Family History Aunt Cancer maternal aunt - uterine/cervical ca Mother Heart disease Father Diabetes Hypertension Grandmother Kidney disease CVA (cerebral vascular accident) Myocardial infarction CAD (coronary artery disease) Diabetes Hypertension Surgical History Hx laparoscopic cholecystectomy Dehiscence of perineal wound Fourth degree perineal laceration History of gynecologic surgery Social History Smoking Status: Former smoker alcohol intake: current alcohol intake frequency: a few times a week Alcohol type: beer substance use type: does not use ROS ROS ED Constitutional Constitutional ED: Reports chills, fever(s) and subjective Eyes Eyes: Denies change in vision ENT ENT ED: Denies sore throat Cardiovascular Cardiovascular: Denies chest pain Respiratory/Chest Respiratory/Chest: Denies cough or dyspnea Gastrointestinal Gastrointestinal: Reports abdominal pain, diarrhea, nausea and vomiting; Denies melena Genitourinary Genitourinary ED: Denies dysuria Musculoskeletal Musculoskeletal: Reports myalgias Integumentary Denies rash Neurologic Neurologic: Reports headache(s) Psychiatric Psychiatric: Reports anxiety Hematologic/Lymphatic Hematologic/Lymphatic: Denies easy bleeding or easy bruising EXAM Physical Exam Const Vital Signs: 10/30/24 04:18 Temperature 97.6 F L Temperature Source Oral Pulse Rate 96 Respiratory Rate 18 Blood Pressure 119/65 Blood Pressure Mean 83 Pulse Ox 96 Oxygen Delivery Method Room Air Positive well nourished, well developed and obese General Appearance ED: well developed; Negative for pallor Nutritional Appearance: obese HEENT Reports dry mucous membranes HEENT Narrative: Mucous membranes are mildly dry and tacky No tongue or lip swelling no oral lesions no airway edema or compromise No secondary findings in the posterior pharynx to sug (more content not included)... Normal [facility] Eosinophil percentageOrdered By: Yovani Uriostegui on 10-30-2024 Eosinophils/100 WBC (Bld) 0.1 % 0-5 [facility] Erythrocyte distribution wid th ratioOrdered By: Yovani Uriostegui on 10-30-2024 Erythrocyte distribution width (RBC) [Ratio] 12.8 % 11.6-14.6 [facility] Erythrocyte distribution wid th standard deviationOrdered By: Yovani Uriostegui on 10-30-2024 Erythrocyte distribution width (RBC) [Entitic vol] 41.7 fL 35.1-43.9 [facility] Estimated glomerular filtrat ion rate (GFR) AmericanOrdered By: Yovani Uriostegui on 10-30-2024 Estimated GFR (MDRD) Amer 172 mL/min >60 [facility] Comment on above: GFR Calc Estimation of creatinine lance aranceOrdered By: Yovani Uriostegui on 10-30-2024 Estimated Creatinine Clearance Calc 175.40 ml/min [facility] Glomerular filtration rate ( GFR) estimationOrdered By: Yovani Uriostegui on 10-30-2024 Estimated GFR (MDRD) Non-Af Amer 142 mL/min >60 [facility] Comment on above: Non- GFR Calc Glucose measurementOrdered B y: Yovani Uriostegui on 10-30-2024 Glucose [Mass/Vol] 139 mg/dL High 74-106 [facility] Comment on above: Fasting Glucose resu lt greater than or equal to 126 mg/dL suggests DIABETES MELLITUS per A.D.A. criteria. Hematocrit Auto (Bld) [Volum e fraction]Ordered By: Yovani Uriostegui on 10-30-2024 Hematocrit (Bld) [Volume fraction] 39.6 % 37-47 [facility] Hemoglobin measurementOrdere d By: Yovani Uriostegui on 10-30-2024 Hemoglobin (Bld) [Mass/Vol] 13.5 g/dL 12.0-15.0 [facility] Immature granulocytes/100 WB C Auto (Bld)Ordered By: Yovani Uriostegui on 10-30-2024 Immature granulocytes/100 WBC (Bld) 0.900 % 0.0-0.9 [facility] Comment on above: IG% - Immature Granu locytes (promyelocytes, myelocytes and metamyelocytes) > 1% indicates that a LEFT SHIFT is Present. Laboratory - Chemistry and C hemistry - challengeOrdered By: Yovani Uriostegui on 10-30-2024 AST [Catalytic activity/Vol] 9 U/L Low 15-37 [facility] Lipaseon 10-30-2024 Lipase [Catalytic activity/Vol] 27 U/L Normal 13-75 [facility] Comment on above: Result Comment: Luis fletcher note: LIPASE revised reference range effective 23. New Lipase methodology. Expected to produce lower values than the previous assay method. NEW Reference Range: 13 - 75 U/L Performed By: #### L 100.0100, L500.2500, L500.3400, L501.2450 ####[facility] [address] [place], [address] Lipase measurementOrdered By : Yovani Uriostegui on 10-30-2024 Lipase [Catalytic activity/Vol] 27 U/L 13-75 [facility] Comment on above: Please note:LIPASE r evised reference range effective 23. New Lipase methodology. Expected to produce lower values than the previous assay method. NEW Reference Range: 13 - 75 U/L Liver Profileon 10-30-2024 Albumin [Mass/Vol] 2.9 g/dL Low 3.2-5.0 [facility] Comment on above: Performed By: #### L 100.0100, L500.2500, L500.3400, L501.2450 ####[facility] [address] [place], [address] ALK P 57 U/L Normal 45-117 [facility] Comment on above: Performed By: #### L 100.0100, L500.2500, L500.3400, L501.2450 ####[facility] [address] [place], [address] ALT [Catalytic activity/Vol] 13 U/L Normal 13-56 [facility] Comment on above: Performed By: #### L 100.0100, L500.2500, L500.3400, L501.2450 ####[facility] [address] [place], [address] AST [Catalytic activity/Vol] 9 U/L Low 15-37 [facility] Comment on above: Performed By: #### L 100.0100, L500.2500, L500.3400, L501.2450 ####[facility] [address] [place], [address] Bilirubin [Mass/Vol] 1.20 mg/dL High 0.20-1.00 [facility] Comment on above: Result Comment: For patients on eltrombopag therapy, use of Dimension [place] TBIL is not recommended. Performed By: #### L 100.0100, L500.2500, L500.3400, L501.2450 ####[facility] [address] [place], [address] Bilirubin.direct [Mass/Vol] 0.25 mg/dL Normal 0.00-0.30 [facility] Comment on above: Performed By: #### L 100.0100, L500.2500, L500.3400, L501.2450 ####[facility] [address] [place], [address] Globulin (S) [Mass/Vol] 4.1 g/dL Normal 2.2-4.2 [facility] Comment on above: Performed By: #### L 100.0100, L500.2500, L500.3400, L501.2450 ####[facility] [address] [place], [address] T PROT 7.0 g/dL Normal 6.4-8.2 [facility] Comment on above: Performed By: #### L 100.0100, L500.2500, L500.3400, L501.2450 ####[facility] [address] [place], [address] Lymphocytes Auto (Unsp spec) [#/Vol]Ordered By: Yovani Uriostegui on 10-30-2024 Lymphocytes (Bld) [#/Vol] 0.42 10*3/uL Low 0.83-4.51 [facility] Lymphocytes/100 WBC Auto (Un sp spec)Ordered By: Yovani Uriostegui on 10-30-2024 Lymphocytes/100 WBC (Bld) 4.1 % Low 19-41 [facility] MCV (mean corpuscular volume ) determinationOrdered By: Yovani Uriostegui on 10-30-2024 MCV (RBC) [Entitic vol] 88.8 fL 81-99 [facility] Mean corpuscular hemoglobin (MCH) determinationOrdered By: Yovani Uriostegui on 10-30-2024 MCH (RBC) [Entitic mass] 30.3 pg 27.0-32.0 [facility] Mean corpuscular hemoglobin concentration (MCHC) determinationOrdered By: Yovani Uriostegui on 10-30-2024 MCHC (RBC) [Mass/Vol] 34.1 g/dL 32-36 [facility] Mean platelet volume determi nationOrdered By: Yovani Uriostegui on 10-30-2024 Platelet mean volume (Bld) [Entitic vol] 8.2 fL 6.2-12.0 [facility] Monocyte percentageOrdered B y: Yovani Uriostegui on 10-30-2024 Monocytes/100 WBC (Bld) 3.4 % 0-10 [facility] Neutrophil percentageOrdered By: Yovani Uriostegui on 10-30-2024 Neutrophils/100 WBC (Bld) 91.2 % High 47-70 [facility] Nucleated red blood cell per centageOrdered By: Yovani Uriostegui on 10-30-2024 Nucleated RBC/100 WBC (Bld) [Ratio] 0 % 0-5 [facility] Platelet countOrdered By: Abi Uriostegui on 10-30-2024 Platelets (Bld) [#/Vol] 249 10*3/uL 150-450 [facility] Potassium measurementOrdered By: Yovani Uriostegui on 10-30-2024 Potassium [Moles/Vol] 3.6 mmol/L 3.5-5.1 [facility] RBC Auto (Bld) [#/Vol]Ordere d By: Yovani Uriostegui on 10-30-2024 RBC (Bld) [#/Vol] 4.46 10*6/uL 4.2-5.4 [facility] Serum anion gap measurementO rdered By: Yovani Uriostegui on 10-30-2024 Anion gap [Moles/Vol] 9 mmol/L 5-15 [facility] Serum globulin measurementOr dered By: Yovani Uriostegui on 10-30-2024 Globulin (S) [Mass/Vol] 4.1 g/dL 2.2-4.2 [facility] Serum or plasma alanine comer otransferase (ALT) measurementOrdered By: Yovani Uriostegui on 10-30-2024 ALT [Catalytic activity/Vol] 13 U/L 13-56 [facility] Serum or plasma albumin jay urement (mass/volume)Ordered By: Yovani Uriostegui on 10-30-2024 Albumin [Mass/Vol] 2.9 g/dL Low 3.2-5.0 [facility] Serum or plasma alkaline sami sphatase measurementOrdered By: Yovani Uriostegui on 10-30-2024 ALP [Catalytic activity/Vol] 57 U/L 45-117 [facility] Serum or plasma calcium jay urement (mass/volume)Ordered By: Yovani Uriostegui on 10-30-2024 Calcium [Mass/Vol] 8.8 mg/dL 8.5-10.1 [facility] Serum or plasma creatinine m easurement (mass/volume)Ordered By: Yovani Uriostegui on 10-30-2024 Creatinine [Mass/Vol] 0.54 mg/dL Low 0.55-1.02 [facility] Comment on above: The validity of the calculated GFR & GFRAA in patients over 70 years has not been determined. Clinical correlation is essential. Serum or plasma urea nitroge n measurement (mass/volume)Ordered By: Yovani Uriostegui on 10-30-2024 Urea nitrogen [Mass/Vol] 11 mg/dL 7-18 [facility] Sodium levelOrdered By: Melissa Uriostegui on 10-30-2024 Sodium [Moles/Vol] 136 mmol/L 136-145 [facility] Total proteinOrdered By: Hal Uriostegui on 10-30-2024 Protein [Mass/Vol] 7.0 g/dL 6.4-8.2 [facility] White blood cell (WBC) count Ordered By: Yovani Uriostegui on 10-30-2024 WBC (Bld) [#/Vol] 10.2 10*3/uL 4.4-11.0 [facility] CNPNon 10-26-2024 CNPN Telephone (OBGYWM) LEELEE ZAMORA ([id number]) 1995 F Date Time Provider Department 10/26/24 TAHMINA DUMONT OBGYWJeffrey During your visit today, we recorded the following information about you: Marietta Werner, TERRY 10/26/2024 12:22 PM Signed 17w4d Patient was seen at [facility] ER yesterday because she fell. States that an ultrasound was done and the ER physician consulted with Dr. Dumont. Patient concerned because the ER stated that the fetus was very low in pelvis and resting on the cervix. Patient has an anatomy US on 11/15/24. Advised a note would be sent to KJ to review when she returns to the office tomorrow. TERRY Emerson Karmon, MD 10/27/2024 9:34 AM Signed Noted. OK to keep next appointment as scheduled. MD Jeronimo Bustamante Trisha, RN 10/27/2024 9:39 AM Signed Attempted to call patient. Unable to leave message because voicemail not set up. [employer] message sent. Lenin Decker RN Allergies As of Date: 10/26/2024 Noted Allergy Reaction CAT DANDER 07/22/2023 4 - Hives CRANBERRY 07/22/2023 2 - Rash HOUSE DUST 07/22/2023 4 - Hives MOLD 07/22/2023 14 - Other: See Comments PEANUT 07/22/2023 7 - Swelling TREE NUTS 07/02/2022 2 - Rash MORPHINE 03/23/2017 14 - Other: See Comments Comments: Tightness in chest Date Reviewed: 10/20/2024 Reviewed by: Michelle Mcgee MA - Fully Assessed Reason for Visit: Question (OB Question) [1552] Prescriptions as of 10/27/2024 - aspirin, enteric coated (ECOTRIN LOW STRENGTH) 81 mg EC tablet Take 1 tablet by mouth once daily. - lactobacillus comb no.10 20 billion cell cap Take 2 capsules by mouth once daily for 14 days. - PNV 819-rcetb-nmsrd-3-fish oil 400-32.5 mcg-mg chew Problem List As Of Date 10/26/2024 Noted Resolved Class 2 obesity without serious comorbidity wit*03/09/2018 12/07/2023 Vitamin D deficiency [E55.9] 12/16/2018 SAMAN (generalized anxiety disorder) [F41.1] 12/16/2018 History of gastroesophageal reflux (GERD) [Z87.*12/16/2018 Allergic rhinitis, unspecified [J30.9] 12/16/2018 Ex-smoker [Z87.891] 12/16/2018 Psoriasis [L40.9] 12/16/2018 Encounter for insertion of mirena IUD [Z30.430] 12/16/2018 12/07/2023 Acute deep vein thrombosis (DVT) of popliteal v*02/202212/07/2023 IUD (intrauterine device) in place [Z97.5] 11/06/2022 12/07/2023 Polycystic ovary syndrome [E28.2] 12/17/2022 Obesity, Class II, BMI 35-39.9 [E66.812] 07/02/2023 07/06/2023 Obesity complicating , second trimeste*07/06/2023 Liver hemangioma [D18.03] 09/16/2023 Vapes nicotine containing substance [Z72.0] 10/01/2023 Acute deep vein thrombosis (DVT) of right upper*10/01/2023 Supervision of high risk in second tr*08/18/2024 History of maternal fourth degree perineal lace*08/18/2024 Rectovaginal fistula [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 Alfredo Barroso MD Status:DEP ER Location: ED HPI History of Present Illness Chief Complaint: Fall Informant: patient Narrative Narrative: Patient is a 29-year-old female who is a approximately 18 weeks . She states around 930 this evening she was walking down the steps and she slipped and fell. She states she landed on her back/buttocks. She denies striking her head any loss of consciousness history of bleeding disorder or blood thinner use. She states she was able to get back up and ambulate following the fall. She states there is been no vaginal bleeding or discharge. She states that her first was complicated and following delivery had to have a ostomy secondary to SBO. She states since the fall she is concerned there may have been injury to the baby and therefore comes in for evaluation [facility] Medical History Hypotension Dizziness Vitamin D deficiency PCOS (polycystic ovarian syndrome) Obesity GERD (gastroesophageal reflux disease) Hx of deep venous thrombosis History of post traumatic stress disorder SBO (small bowel obstruction) Endometritis Chronic pain Post traumatic stress disorder (PTSD) ADHD (attention deficit hyperactivity disorder) Anxiety Home Medications ???Medication ???Instructions ???Recorded ???Last Taken ???Type aspirin 81 mg tablet,delayed 81 mg PO QDAY 09/28/24 Unknown History release vitamin no.102-iron 90 1 cap PO QDAY 09/28/24 Unknown History mg-folate 1 mg-dha 200 mg capsule Allergy/AdvReac Type Severity Reaction Status Date / Time cat dander Allergy Hives Verified 10/25/24 21:11 house dust Allergy Hives Verified 10/25/24 21:11 peanut Allergy Swelling Verified 10/25/24 21:11 cranberry AdvReac Rash Verified 10/25/24 21:11 mold AdvReac Other Verified 10/25/24 21:11 morphine AdvReac Chest Verified 10/25/24 21:11 tightness Family History Aunt Cancer maternal aunt - uterine/cervical ca Mother Heart disease Father Diabetes Hypertension Grandmother Kidney disease CVA (cerebral vascular accident) Myocardial infarction CAD (coronary artery disease) Diabetes Hypertension Surgical History Hx laparoscopic cholecystectomy Dehiscence of perineal wound Fourth degree perineal laceration History of gynecologic surgery Social History Smoking Status: Current every day smoker tobacco type: cigarettes and e-cigarettes alcohol intake: current alcohol intake frequency: a few times a week Alcohol type: beer substance use type: does not use ROS ROS ED Constitutional Constitutional ED: Denies chills or fever(s) Eyes Eyes: Denies blurry vision or change in vision ENT ENT ED: Denies sore throat Cardiovascular Cardiovascular: Reports other Details: Negative syncope ; Denies chest pain Respiratory/Chest Respiratory/Chest: Denies cough or dyspnea Gastrointestinal Gastrointestinal: Denies abdominal pain, diarrhea, nausea or vomiting Genitourinary Genitourinary ED: Reports other Details: Negative vaginal bleeding or discharge ; Denies dysuria, hematuria or urinary frequency Musculoskeletal Musculoskeletal: Reports back pain Integumentary Reports Abrasions Neurologic Neurologic: Denies headache(s), paresthesias or weakness Hematologic/Lymphatic Hematologic/Lymphatic: Denies easy bleeding or easy bruising EXAM Physical Exam Const Vital Signs: 10/25/24 21:07 10/25/24 21:51 Temperature 97.8 F Temperature Source Oral Pulse Rate 89 Respiratory Rate 18 Respiratory Effort Normal Non-Labored Respiratory Depth Normal Respiratory Pattern Normal Blood Pressure 137/82 H Blood Pressure Mean 100 Pulse Ox 99 Oxygen Delivery Method Room Air Room Air Positive well nourished and well developed General Appearance ED: well developed; Negative for pallor HEENT HEENT Narrative: Normocephalic atraumatic Eyes PERRL and EOMs intact bilaterally Neck supple Neck Narrative: No bony deformity or step-off of the cervical spine no midline tenderness to palpation Resp normal respiratory effort and clear to auscultation bilaterally Cardio regular rate and regular rhythm GI non-tender and non-distended GI Narrative: Abdomen is soft nontender and nondistended with normal active bowel sounds. Fundus is consistent with reported g (more content not included)... Normal [facility] CNCOon 10-20-2024 CNCO Letter Text Normal [facility] Padma 10-13-2024 CNPN Telephone (OBGYWM) NOAHLEELEE N ([id number]) 1995 F Date Time Provider Department 10/13/24 ANGELA PAUL During your visit today, we recorded the following information about you: Tatyana Aponte RN 10/13/2024 4:23 PM Signed Breast pump request received via [employer]. Order to provider to sign. TERRY Borrego Lindsey, RN 10/17/2024 11:54 AM Signed Order signed and faxed. Tatyana Aponte RN Allergies As of Date: 10/13/2024 Noted Allergy Reaction CAT DANDER 07/22/2023 4 - Hives CRANBERRY 07/22/2023 2 - Rash HOUSE DUST 07/22/2023 4 - Hives MOLD 07/22/2023 14 - Other: See Comments PEANUT 07/22/2023 7 - Swelling TREE NUTS 07/02/2022 2 - Rash MORPHINE 03/23/2017 14 - Other: See Comments Comments: Tightness in chest Date Reviewed: 10/12/2024 Reviewed by: Sandra Leung MA - Fully Assessed Reason for Visit: breast pump [Other] Prescriptions as of 10/17/2024 - cephALEXin (KEFLEX) 500 mg capsule Take 1 capsule by mouth four times daily for 7 days. - lactobacillus comb no.10 20 billion cell cap Take 2 capsules by mouth once daily for 14 days. - aspirin, enteric coated (ECOTRIN LOW STRENGTH) 81 mg EC tablet Take 1 tablet by mouth once daily. - PNV 153-vdaud-ckacd-3-fish oil 400-32.5 mcg-mg chew Problem List As Of Date 10/13/2024 Noted Resolved Class 2 obesity without serious comorbidity wit*03/09/2018 12/07/2023 Vitamin D deficiency [E55.9] 12/16/2018 SAMAN (generalized anxiety disorder) [F41.1] 12/16/2018 History of gastroesophageal reflux (GERD) [Z87.*12/16/2018 Allergic rhinitis, unspecified [J30.9] 12/16/2018 Ex-smoker [Z87.891] 12/16/2018 Psoriasis [L40.9] 12/16/2018 Encounter for insertion of mirena IUD [Z30.430] 12/16/2018 12/07/2023 Acute deep vein thrombosis (DVT) of popliteal v*02/202212/07/2023 IUD (intrauterine device) in place [Z97.5] 11/06/2022 12/07/2023 Polycystic ovary syndrome [E28.2] 12/17/2022 Obesity, Class II, BMI 35-39.9 [E66.812] 07/02/2023 07/06/2023 Obesity complicating , second trimeste*07/06/2023 Liver hemangioma [D18.03] 09/16/2023 Vapes nicotine containing substance [Z72.0] 10/01/2023 Acute deep vein thrombosis (DVT) of right upper*10/01/2023 Supervision of high risk in second tr*08/18/2024 History of maternal fourth degree perineal lace*08/18/2024 Rectovaginal fistula [N82.3] 08/18/2024 History of gestational diabetes in prior pregna*09/19/2024 History of forceps delivery in prior ,*09/19/2024 Encounter Status:Closed by TATYANA APONTE on 10/17/24 [facility] CNOVon 10-12-2024 CNOV Office Visit (UCWSTR ) LEELEE ZAMORA ([id number]) 1995 F Date Time Provider Department 10/12/24 3:00 PM NUNO MADRID WSTR During your visit today, we recorded the following information about you: Temperature Pulse Respiration Blood pressure 98 degrees 83/minute 18/minute 117/81 Weight 106.6 kg Nuno Madrid PA-C 10/12/2024 3:19 PM Signed Subjective Leelee Saucedo Noah is a 29 year old female with a past medical history of GERD, DVT, PCOS, and anxiety who presents to [facility] today for evaluation of left-sided facial pain and swelling for the past couple days. Patient states that she had a virtual visit on 10/07/2024 and was diagnosed with a dental abscess and given a prescription for amoxicillin. She states that she has been taking this as prescribed however this morning she noticed an area of redness developing on her left cheek that has been getting increasingly larger throughout the day today. Review of Systems Constitutional: Negative for chills, diaphoresis and fever. HENT: Positive for dental problem (left upper dental pain). Skin: Positive for rash (redness to left side of face). All other systems reviewed and are negative. Objective BP 117/81 Pulse 83 Temp 36.7 ?C (98 ?F) Resp 18 Wt 106.6 kg (235 lb 0.2 oz) LMP 06/25/2024 (Exact Date) SpO2 100% BMI 42.98 kg/m? Physical Exam Vitals reviewed. Constitutional: General: She is not in acute distress. Appearance: Normal appearance. She is normal weight. She is not ill-appearing or toxic-appearing. Comments: The patient appears to be non-toxic, in no acute distress, and resting comfortably on the table. HENT: Head: Normocephalic and atraumatic. Mouth/Throat: Dentition: Dental tenderness (left upper) present. Eyes: Extraocular Movements: Extraocular movements intact. Cardiovascular: Rate and Rhythm: Normal rate and regular rhythm. Heart sounds: Normal heart sounds. No murmur heard. No friction rub. No gallop. Musculoskeletal: General: Normal range of motion. Cervical back: Normal range of motion. Skin: General: Skin is warm and dry. Findings: Erythema (left facial) present. No rash. Neurological: General: No focal deficit present. Mental Status: She is alert and oriented to person, place, and time. Mental status is at baseline. Psychiatric: Mood and Affect: Mood normal. Behavior: Behavior normal. Thought Content: Thought content normal. Assessment and Plan Examination of the oropharynx reveals left upper dental tenderness with no abscess noted. There is an area of erythema, warmth, and mild tenderness to the left cheek concerning for early cellulitis. Patient counseled regarding suspected diagnosis and advised to discontinue amoxicillin. Patient given a prescription for Keflex. Advised to follow-up with her primary care provider as needed. ASSESSMENT/PLAN: 1. Facial cellulitis - ICD9: 682.0, ICD10: L03.211 - CEPHALEXIN 500 MG CAPSULE - LACTOBACILLUS COMBINATION NO.10 20 BILLION CELL CAPSULE Medical Decision Making: Problems: Low: Acute, uncomplicated illness or injury Risk: Minimal: Minimal risk from testing/treatment Moderate: Drug management Medical Decision Making Level: 3 - Low I spent a total of 20 minutes on the date of the service which included preparing to see the patient, jbql-eg-rioa patient care, completing clinical documentation, performing a medically appropriate examination, counseling and educating the patient/family/caregive r, and ordering medications, tests, or procedures. Nuno Madrid PA-C Referring Provider: SELF [200] Allergies As of Date: 10/12/2024 Noted Allergy Reaction CAT DANDER 07/22/2023 4 - Hives CRANBERRY 07/22/2023 2 - Rash HOUSE DUST 07/22/2023 4 - Hives MOLD 07/22/2023 14 - Other: See Comments PEANUT 07/22/2023 7 - Swelling TREE NUTS 07/02/2022 2 - Rash MORPHINE 03/23/2017 14 - Other: See Comments Comments: Tightness in chest Date Reviewed: 10/12/2024 Reviewed by: Sandra Leung MA - Fully Assessed Reason for Visit: Derm Problem [33] Cmt: Rash R side of deepika x this AM Primary Visit Diagnosis:Facial cellulitis [L03.211] Order(s):cephALEXin (KEFLEX) 500 mg capsuleTake 1 capsule by mouth four times daily for 7 days.Disp: 28 capsuleRfl: 0 lactobacillus comb no.10 20 billion cell capTake 2 capsules by mouth once daily for 14 days.Disp: 28 capsuleRfl: 0 Prescriptions as of 10/12/2024 - cephALEXin (KEFLEX) 500 mg capsule Take 1 capsule by mouth four times daily for 7 days. - lactobacillus comb no.10 20 billion cell cap Take 2 capsules by mouth once daily for 14 days. - aspirin, enteric coated (ECOTRIN LOW STRENGTH) 81 mg EC tablet Take 1 tablet by mouth once daily. - PNV 655-jzfhh-wkwez-3-fish oil 400-32.5 mcg-mg chew Problem List As Of Date 10/12/2024 Noted Resolved Class 2 obesity without serious co (more content not included)... Normal [facility] Emergency Department Summary on 10-12-2024 Emergency Department Summary [facility] Medical Records Department [address] [place] [address] Emergency Department Summary 10/12/24 MR#: [id number] Acct: [id number] Name: LEELEE ZAMORA Rep #: [id number] : 1995 29 From: Jayro Brooks DO PCP: Dr. Alfredo Barroso MD Status:DEP ER Location: ED HPI History of Present Illness Chief Complaint: Dental Informant: patient Onset/Context/Timing Onset: Days (5) Context: Gradual Onset Timing: Continuous Quality: Throbbing Location: Left upper molars Worsened by: Nothing Relieved by: - (Nothing) Associated Symptoms Assocated Symptom - Dental: jaw swelling, face swelling and hot sensitivity; Negative for fever or cold sensitivity Narrative Narrative: Patient presents with dental pain that has been getting worse over the last 5 days. Patient states it is gradually getting worse. Patient states she went to urgent care yesterday was given a prescription for amoxicillin. Patient states that her pain is still present today and she was not sure if she needed a stronger antibiotic. Patient describes her pain as throbbing. Patient states it is over the left upper molar area. Patient states nothing makes it better nothing makes it worse. Patient states she feels like there is some swelling to her left cheek and into her jaw. Patient admits to hot sensitivity but denies any cold sensitivity. Patient states she is 15 weeks and is concerned that the infection is affecting the fetus. [facility] Medical History Hypotension Dizziness Vitamin D deficiency PCOS (polycystic ovarian syndrome) Obesity GERD (gastroesophageal reflux disease) Hx of deep venous thrombosis History of post traumatic stress disorder SBO (small bowel obstruction) Endometritis Chronic pain Post traumatic stress disorder (PTSD) ADHD (attention deficit hyperactivity disorder) Anxiety Home Medications ???Medication ???Instructions ???Recorded ???Last Taken ???Type aspirin 81 mg tablet,delayed 81 mg PO QDAY 09/28/24 Unknown History release vitamin no.102-iron 90 1 cap PO QDAY 09/28/24 Unknown History mg-folate 1 mg-dha 200 mg capsule Allergy/AdvReac Type Severity Reaction Status Date / Time cat dander Allergy Hives Verified 10/12/24 08:54 house dust Allergy Hives Verified 10/12/24 08:54 peanut Allergy Swelling Verified 10/12/24 08:54 cranberry AdvReac Rash Verified 10/12/24 08:54 mold AdvReac Other Verified 10/12/24 08:54 morphine AdvReac Chest Verified 10/12/24 08:54 tightness Family History Aunt Cancer maternal aunt - uterine/cervical ca Mother Heart disease Father Diabetes Hypertension Grandmother Kidney disease CVA (cerebral vascular accident) Myocardial infarction CAD (coronary artery disease) Diabetes Hypertension Surgical History Hx laparoscopic cholecystectomy Dehiscence of perineal wound Fourth degree perineal laceration History of gynecologic surgery Social History Smoking Status: Current every day smoker tobacco type: cigarettes and e-cigarettes alcohol intake: current alcohol intake frequency: a few times a week Alcohol type: beer substance use type: does not use ROS ROS ED Constitutional Constitutional ED: Reports chills and subjective; Denies fever(s) Eyes Eyes: Denies blurry vision or change in vision ENT ENT ED: Denies rhinorrhea or sore throat Cardiovascular Cardiovascular: Denies chest pain or palpitations Respiratory/Chest Respiratory/Chest: Denies cough or dyspnea Gastrointestinal Gastrointestinal: Denies nausea or vomiting Genitourinary Genitourinary ED: Denies dysuria or hematuria Musculoskeletal Musculoskeletal: Reports neck pain; Denies back pain Integumentary Denies abscess or rash Neurologic Neurologic: Denies headache(s) or weakness Allergic/Immunologic Allergic/Immunologic ED: Denies mouth swelling or urticaria EXAM Physical Exam Const Vital Signs: 10/12/24 08:54 Temperature 98.7 F Temperature Source Oral Pulse Rate 84 Respiratory Rate 18 Blood Pressure 123/70 H Blood Pressure Mean 87 Pulse Ox 98 Oxygen Delivery Method Room Air Positive well nourished and well developed General Appearance ED: well developed and NAD HEENT HEENT Narrative: Oral mucosa is pink and moist. Oropharynx is clear. Airway is patent. There was some gingival edema over the left upper molars. There are dental caries noted over these teeth. There is no dis charge or drainage. There is no fluctuance. There is no sublingual edema. There is no evidence of Austin's angina. Mouth ED: Y (more content not included)... Normal [facility] 12 Lead EKG performed by [facility] on 09-28-2024 12 Lead EKG performed by [facility] [address] [place] [address] 12 Lead EKG performed by [facility] 09/28/24 1451 MR#: [id number] Acct: [id number] Name: LEELEE ZAMORA Rep #: [id number] : 1995 29 From: David Michael MD Attending Dr: Dr. David Michael MD Status: DEP A MB Ordering Dr: David Michael MD Date: 09/28/24 Location: [facility] Sex: F C Admitted: BMS/12 Lead EKG performed by [facility] ECG Report Interpretation ---Sinus Rhythm WITHIN NORMAL LIMITSElectronically signed on 10/06/2024 at 09:55 by David Michael [employer] Software Version [id number] 10/06/24 0956 Date David Michael MD CC: Dr. Alfredo Barroso MD Date Dictated: 09/28/241450 Date Transcribed: 09/28/241450 Production Leader: [place] Signed Normal [facility] Cardiology Visit Reporton Cardiology Visit Report [facility] [address] [place] [address] OFFICE VISIT Date of Service: 09/28/24 MR#: [id number] Acct: [id number] Name: LEELEE ZAMORA Rep #: [id number] : 1995 Provider: Dr. David Michael MD Age/Sex: 29/F Location: [facility] Status: Signed HPI HPI History of Present Illness Details: 29-year-old lady who says that she is 3 months and says that she was having some dizziness and presyncopal episodes and her primary care physician asked her to see a finish mill operator. She does not remember whether is the primary care physician or the MATERIALS ANALYST. She denies any sav syncopal spells she has not had any palpitations per se she says that her blood work has been otherwise normal. She did have blood work done in there is no evidence of anemia or electrolyte abnormalities present. Her physical exam today is unremarkable her electrocardiogram demonstrates sinus rhythm with a rate of 82 bpm. Intake Vital Signs 03/04/24 19:57 09/28/24 14:50 Height 5 ft 2 in 5 ft 2 in Weight: 226 lb BMI 41.3 BP 121/76 H Blood Pressure Location Lt brachial Position Sitting Respiration 16 Pulse 82 Pulse Source Monitor Intake Visit Reasons: DIZZINESS/LOW BP (STRADLING) Technical Service Engineer Required: No Accompanied by: Self Is patient in pain?: No Allergies cat dander Allergy (Verified 09/28/24 14:55) Hives house dust Allergy (Verified 09/28/24 14:55) Hives peanut Allergy (Verified 09/28/24 14:55) Swelling cranberry Adverse Reaction (Verified 09/28/24 14:55) Rash mold Adverse Reaction (Verified 09/28/24 14:55) Other morphine Adverse Reaction (Verified 09/28/24 14:55) Chest tightness Medications ???Medication ???Instructions ???Recorded ???Confirmed ???Type aspirin 81 mg tablet,delayed 81 mg PO QDAY 09/28/24 09/28/24 History release vitamin no.102-iron 90 1 cap PO QDAY 09/28/24 09/28/24 History mg-folate 1 mg-dha 200 mg capsule Have you fallen in the past year?: Yes PFSH Medical History ADHD (attention deficit hyperactivity disorder) Anxiety Chronic pain Dizziness Endometritis GERD (gastroesophageal reflux disease) History of post traumatic stress disorder Hx of deep venous thrombosis Hypotension Obesity PCOS (polycystic ovarian syndrome) Post traumatic stress disorder (PTSD) SBO (small bowel obstruction) Vitamin D deficiency Surgical History Dehiscence of perineal wound Fourth degree perineal laceration History of gynecologic surgery Hx laparoscopic cholecystectomy Family History Aunt Cancer maternal aunt - uterine/cervical ca Mother Heart disease Father Diabetes Hypertension Grandmother Kidney disease CVA (cerebral vascular accident) Myocardial infarction CAD (coronary artery disease) Diabetes Hypertension Social History Smoking Status: Current every day smoker tobacco type: cigarettes and e-cigarettes alcohol intake: current alcohol intake frequency: a few times a week Alcohol type: beer substance use type: does not use ROS Const Const: Negative for fatigue, weakness, headache(s), daytime sleepiness or difficulty sleeping ENT ENT: Positive for dizziness; Negative for headache(s) or Nosebleed/epistaxis Cardio Chest Pain: No Palpitations: No Edema: None Resp Respiratory: Negative for SOB with activity, SOB at rest, SOB orthopnea SOB lying down or Cough GI GI: Negative nausea, vomiting or heartburn Neuro Neuro: Positive for dizziness, lightheadedness, near syncope and syncope; Negative for headache(s) or weakness Endo Endo: Negative for fatigue Supplemental Info Supplemental Information Labs: No Data to Display Diagnostics: Electrocardiogram Abdomen/Pelvis CT Pulmonary: No Data to Display Past Visits: Cardiology Visit 09/28/24 Assessment and Plan Assessment and Plan (1) Dizziness: Status: Acute Plan: This is likely benign and related to her but for reassurance I would suggest that we obtain an echocardiogram to assess her ventricular function if the above is normal I would not suggest any further testing. I did explain the above to her she understands and agrees to proceed. Thank you for allowing me to participate in the care of your patient. Please don't hesitate to call if any issues arise. Orders: Orders 12 Lead EKG performed by [facility] Today I95.9 - Hypotension, unspecified, R42 - Dizziness and giddiness Echo Complete Today R42 - Dizziness and giddiness Plan Details Follow Up: prn Coding Level (more content not included)... Normal [facility] Bacteria Ur Culton 4 Bacteria identified Cx Nom (U) ORGANISM ID: 1 10,000 -<50,000 CFU/ml Normal urogenital mark Normal [facility] Comment on above: Performed By: #### 6 30-4 ####[facility] LABCLIA [id number] [place] [address] [place] nuchal translucency me asured by Earle 09-19-2024 Indication First trimester anatomic survey, Maternal obesity, BMI >30, History of gestational diabetes Impression The patient is referred for a first trimester anatomy scan including nuchal translucency measurement as clinically indicated. - Single, live, intrauterine . - [place] rump length measurement is consistent with the established gestational age. - A qualitative screen of the nuchal translucency and other anatomic structures was unremarkable on a complete first trimester anatomic assessment. - Not all structural malformations can be detected by ultrasound examination. Maternal Structures: Right Ovary: Size 37 mm x 12 mm x 13 mm Left Ovary: Size 23 mm x 17 mm x 13 mm Recommendations - A standard anatomic survey at 16 weeks can be offered and a detailed exam at 20 weeks is recommended for increased risk. Maternal Assessment Height 157 cm Height (ft) 5 ft Height (in) 2 in Weight 98 kg Weight (lb) 215 lb BMI 39.32 kg/m Method Transabdominal ultrasound examination Roach . Number of fetuses: 1 Dating LMP on: 06/25/2024 GA by LMP 12 w + 2 d MJ by LMP: 04/01/2025 Ultrasound examination on: 09/19/2024 GA by U/S based upon: CRL GA by U/S 12 w + 2 d MJ by U/S: 04/01/2025 Assigned: based on the LMP, selected on 08/18/2024 Assigned GA 12 w + 2 d Assigned MJ: 04/01/2025 General Evaluation Cardiac activity present Placenta: posterior Cord vessels: 3 vessel cord, normal insertion Amniotic fluid: normal amount Biometry Standard FHR 161 bpm CRL 57.1 mm 12w 2d 34% [place] First Trimester Anatomy Calvarium: normal Falx cerebri: normal Choroid plexus: normal Profile: normal Nasal bone: normal Retronasal triangle: normal Maxilla: normal Mandible: normal Nuchal translucency: Unremarkable Situs: normal Cardiac position: normal Cardiac axis: normal 4-chamber view: normal 4-chamber view with color: normal 6-lrgeti-coiywju view: normal Abdominal cord insertion: normal Stomach: normal Kidneys: normal Bladder: normal Color doppler of perivesical umbilical arteries: normal Vertebral alignment: normal Arms: normal Hands: normal Legs: normal Feet: normal Maternal Structures Uterus / Cervix Uterus: Visualized Uterus position: anteverted Ovaries / Tubes / Adnexa Rt ovary: Normal Rt ovary D1 37 mm Rt ovary D2 12 mm Rt ovary D3 13 mm Rt ovary Vol 3.0 cm Lt ovary: Normal Lt ovary D1 23 mm Lt ovary D2 17 mm Lt ovary D3 13 mm Lt ovary Vol 2.6 cm Performed By: Suzy Mena RDMS Read By: [place] Nation M.D. MATERNAL MEDICINE [facility] Radiology Study observation (narrative) [facility] UA DIP, URINE (POC)on 2023 BILIRUBIN UA (POCT) Negative Negative [facility] CLARITY UA (POCT) Clear [facility] COLOR UA (POCT) Yellow [facility] GLUCOSE UA (POCT) Negative Negative mg/dL [facility] Hemoglobin Ql (U) Negative Negative [facility] KETONE UA (POCT) Negative Negative mg/dL [facility] LEUKOCYTES UA (POCT) Negative Negative [facility] NITRITE UA (POCT) Negative Negative [facility] PH UA (POCT) 6.5 4.5 - 8.0 [facility] Protein Ql (U) Negative Negative mg/dL [facility] SPECIFIC GRAVITY UA (POCT) 1.010 1.005 - 1.030 [facility] UROBILINOGEN UA (POCT) 0.2 Normal E.U./dL [facility] Location:[facility], [address], [place], [address] [facility] POINT OF CARE [facility] Padma 09-16-2024 YADIN Telephone (UCWSTR) LEELEE ZAMORA ([id number]) 1995 F Date Time Provider Department 09/16/24 MICHAEL ROSADO During your visit today, we recorded the following information about you: Michael Rosado APRN.HOME VISITOR [employer] 09/16/2024 7:32 AM Signed Please notify positive for rsv. Treat as cold. Refer to pulmonology technician recommended otc medication for relief. F/u for severe or worsening s/s Zita Robins LPN 09/16/2024 10:54 AM Signed Patient given results and verbalized understanding of instructions given. Zita Robins LPN Allergies As of Date: 09/16/2024 Noted Allergy Reaction CAT DANDER 07/22/2023 4 - Hives CRANBERRY 07/22/2023 2 - Rash HOUSE DUST 07/22/2023 4 - Hives MOLD 07/22/2023 14 - Other: See Comments PEANUT 07/22/2023 7 - Swelling TREE NUTS 07/02/2022 2 - Rash MORPHINE 03/23/2017 14 - Other: See Comments Comments: Tightness in chest Date Reviewed: 09/15/2024 Reviewed by: Zita Robins LPN - Fully Assessed Reason for Visit: Results [95] Prescriptions as of 09/16/2024 - aspirin, enteric coated (ECOTRIN LOW STRENGTH) 81 mg EC tablet Take 1 tablet by mouth once daily. - PNV 681-wvvoh-zohxl-3-fish oil 400-32.5 mcg-mg chew Problem List As Of Date 09/16/2024 Noted Resolved Class 2 obesity without serious comorbidity wit*03/09/2018 12/07/2023 Vitamin D deficiency [E55.9] 12/16/2018 SAMAN (generalized anxiety disorder) [F41.1] 12/16/2018 History of gastroesophageal reflux (GERD) [Z87.*12/16/2018 Allergic rhinitis, unspecified [J30.9] 12/16/2018 Ex-smoker [Z87.891] 12/16/2018 Psoriasis [L40.9] 12/16/2018 Encounter for insertion of mirena IUD [Z30.430] 12/16/2018 12/07/2023 Acute deep vein thrombosis (DVT) of popliteal v*02/202212/07/2023 IUD (intrauterine device) in place [Z97.5] 11/06/2022 12/07/2023 Polycystic ovary syndrome [E28.2] 12/17/2022 Obesity, Class II, BMI 35-39.9 [E66.812] 07/02/2023 07/06/2023 Obesity, Class II, BMI 35-39.9 [E66.812] 07/06/2023 Liver hemangioma [D18.03] 09/16/2023 Vapes nicotine containing substance [Z72.0] 10/01/2023 Acute deep vein thrombosis (DVT) of right upper*10/01/2023 Encounter for supervision of normal i*08/18/2024 History of maternal fourth degree perineal lace*08/18/2024 Rectovaginal fistula [N82.3] 08/18/2024 Encounter Status:Closed by ZITA ROBINS on 09/16/24 [facility] CNOVon 09-15-2024 CNOV Office Visit (UCWSTR ) LEELEE ZAMORA Lewis ([id number]) 1995 F Date Time Provider Department 09/15/24 12:15 PM MAURO LOVE [facility] During your visit today, we recorded the following information about you: Temperature Pulse Respiration Blood pressure 98.2 degrees 87/minute 20/minute 101/58 Weight 102 kg Mauro Love PA 09/15/2024 1:01 PM Signed This note was created using [employer]. Subjective Leelee Zamora is a 29 year old female. HPI 29-year-old female presents for cough, congestion, sore throat x 2 days. Patient states she has not had any fevers. Still eating and drinking. Her right ear is slightly itchy and she has had a sore throat for the past few days. Cough is dry. She has nasal congestion. Daughter sick with similar symptoms. She is 12 weeks , has not taken anything ionn-bwf-qoxbddn for symptoms. No other complaint. PAST MEDICAL HISTORY Diagnosis Date Acute deep vein thrombosis (DVT) of popliteal vein of right lower extremity (HCC) 02/2022 ADHD (attention deficit hyperactivity disorder) Allergic rhinitis, unspecified 12/16/2018 Bowel obstruction (HCC) 2022 Chlamydia Diabetes, gestational Encounter for insertion of Mirena IUD 12/24/2021 Ex-smoker 12/16/2018 Started at age 19 up to 1/2-1 PPD, quit 05/2018 SAMAN (generalized anxiety disorder) 12/16/2018 Seeing Klaus Gonzalez at the [facility] center. History of chlamydia 16 YO History of gastroesophageal reflux (GERD) 12/16/2018 History of maternal fourth degree perineal laceration, currently 08/18/2024 History of morbid obesity Infertility, female Menorrhagia 04/06/2020 had DX hysteroscopy and DANDC PCOS (polycystic ovarian syndrome) Psoriasis 12/16/2018 Vitamin D deficiency 12/16/2018 PAST SURGICAL HISTORY Procedure Laterality Date CYST EXCISION 2016 right leg DANDC, DIAG AND/OR THERAPEUTIC 2019 EXTRACTION, ERUPTED TOOTH OR EXPOSED ROOT (ELEVATION AND/OR FORCEPS REMOVAL) 2012 LAPS SURG CHOLECYSTECTOMY W/CHOLANGIOGRAPHY 10/14/2023 Dr. Macdonald LOCAL REVISION OF ILESTOMY 02/24/2022 LYSIS OF ADHESIONS 10/14/2023 Dr. Macdonald PAST SURGICAL HISTORY OF multiplr vaginoplasty- RV fistual after FAVD AND 4th degree REMOVAL GALLBLADDER 10/14/2023 REPAIR INCISIONAL HERNIA,REDUCIBLE incisional hernia and umbilical hernia repair ALLERGIES Cat Dander, Cranberry, House Dust, Mold, Peanut, Tree Nuts, and Morphine MEDICATIONS PNV 970-fwuho-ibkad-3-fish oil 400-32.5 mcg-mg chew aspirin, enteric coated (ECOTRIN LOW STRENGTH) 81 mg EC tablet Take 1 tablet by mouth once daily. (Patient not taking: Reported on 09/15/2024) FAMILY HISTORY Problem Relation Age of Onset Heart disease Mother arythmia Diabetes Father Hypertension Father No Known Problems Sister No Known Problems Sister Kidney Disease Maternal Grandmother other (lupus) Maternal Grandmother Stroke Maternal Grandmother Heart Attack Maternal Grandmother Blood Clots Maternal Grandmother No Known Problems Maternal Grandfather Colon Cancer Paternal Grandmother late 50's Coronary Artery Disease Paternal Grandmother 40's Diabetes Paternal Grandmother Hypertension Paternal Grandmother Diabetes Paternal Grandfather Hypertension Paternal Grandfather Thyroid Cancer Paternal Aunt 52 Cervical Cancer Paternal Aunt Uterine Cancer Paternal Aunt Breast Cancer Paternal Aunt 20 - 29 Ovarian cancer Paternal Aunt 20 - 29 Thyroid Cancer Paternal Aunt 19 resolved Breast Cancer Paternal Aunt 20 - 29 Alzheimer's Disease No Family History Hyperlipidemia No Family History Thyroid No Family History Seizures No Family History Social History Tobacco Use Smoking status: Former Types: Cigarettes Smokeless tobacco: Never Tobacco comments: Stopped smoking cigarettes, Vaping Use Vaping status: current everyday user Start date: 05/25/2024 Substances: Nicotine, Flavoring Devices: Disposable Substance Use Topics Alcohol use: Not Currently Alcohol/week: 1.0 standard drink of alcohol Types: 1 Cans of beer per week Comment: monthly Drug use: No Review of Systems Constitutional: Negative for chills and fever. HENT: Positive for congestion, ear pain and sore throat. Respiratory: Positive for cough. Negative for shortness of breath. Cardiovascular: Negative for chest pain. Gastrointestinal: Negative for diarrhea and vomiting. Objective BP 101/58 Pulse 87 Temp 36.8 ?C (98.2 ?F) Resp 20 Wt 102 kg (224 lb 13.9 oz) LMP 06/25/2024 (Exact Date) SpO2 97% BMI 41.13 kg/m? Physical Exam Vitals and nursing note reviewed. Constitutional: General: She is not in acute distress. Appearance: Normal appearance. She is not toxic-appearing. HENT: Right Ear: Tympanic membrane and ear canal normal. Left Ear: Tympanic membrane and ear canal normal. Nose: Congestion present. Mouth/Throat: Mouth: (more content not included)... Normal [facility] COVID AND INFLUENZA A/B AND RSV PCR, ROUTINEon 09-15-2024 SARS-CoV-2 (COVID-19) RNA SANJEEV+probe Ql (Unsp spec) SARS-COV-2 (AGENT OF COVID-19) RNA: Not detected INFLUENZA A RNA: Not detected INFLUENZA B RNA: Not detected RESPIRATORY SYNCYTIAL VIRUS (RSV) RNA: Detected Abnormal [facility] Comment on above: Performed By: #### C VFLRS ####[facility] LABCLIA [id number] [place] [address] [place] STREP A MOLECULAR (POC)on Procedural Control Valid [facility] Strep A (POCT) Negative Negative [facility] CARRIER SCREEN, STANDARDon 1 11-05-2023 CARRIER SCREEN RESULTS View results in Scanned Documents link when available. Normal [facility] Comment on above: Order Comment: Speci men Type: BLOOD SPECIMEN Ordering Facility: [facility] Address: [address] [place] [address] Performed By: #### C RRSCN #### [facility] CLIA [id number] [address] [place] [id number] CBC W Auto Differential pane l (Bld)on 09-05-2024 Basophils (Bld) [#/Vol] 10*3/uL Normal <0.11 [facility] Comment on above: Order Comment: Speci men Type: BLOOD SPECIMEN Ordering Facility: [facility] Address: [address] [place] [address] Performed By: #### T SPN #### [facility] CLIA [id number] [address] [place] [address] [place] Basophils/100 WBC (Bld) 0.3 % Normal [facility] Comment on above: Order Comment: Speci men Type: BLOOD SPECIMEN Ordering Facility: [facility] Address: [address] [place] [address] Performed By: #### T SPN #### [facility] CLIA [id number] [address] [place] [address] [place] Differential cell count method Nom (Bld) Auto Normal [facility] Comment on above: Order Comment: Speci men Type: BLOOD SPECIMEN Ordering Facility: [facility] Address: [address] [place] [address] Performed By: #### T SPN #### [facility] CLIA [id number] [address] [place] [address] [place] Eosinophils (Bld) [#/Vol] 0.05 10*3/uL Normal <0.46 [facility] Comment on above: Order Comment: Speci men Type: BLOOD SPECIMEN Ordering Facility: [facility] Address: [address] [place], [place] [address] Performed By: #### T SPN #### [facility] CLIA [id number] [address] [place] [address] [place] Eosinophils/100 WBC (Bld) 0.6 % Normal [facility] Comment on above: Order Comment: Speci men Type: BLOOD SPECIMEN Ordering Facility: [facility] Address: [address] [place] [address] Performed By: #### T SPN #### [facility] CLIA [id number] [address] [place] [address] [place] Erythrocyte distribution width (RBC) [Ratio] 12.4 % Normal 11.5-15.0 [facility] Comment on above: Order Comment: Speci men Type: BLOOD SPECIMEN Ordering Facility: [facility] Address: [address] [place] [address] Performed By: #### T SPN #### [facility] CLIA [id number] [address] [place] [address] [place] Hematocrit (Bld) [Volume fraction] 39.3 % Normal 36.0-46.0 [facility] Comment on above: Order Comment: Speci men Type: BLOOD SPECIMEN Ordering Facility: [facility] Address: [address] [place] [address] Performed By: #### T SPN #### [facility] CLIA [id number] [address] [place] [address] [place] Hemoglobin (Bld) [Mass/Vol] 13.1 g/dL Normal 11.5-15.5 [facility] Comment on above: Order Comment: Speci men Type: BLOOD SPECIMEN Ordering Facility: [facility] Address: [address] [place] [address] Performed By: #### T SPN #### [facility] CLIA [id number] [address] [place] [address] [place] Immature granulocytes (Bld) [#/Vol] 0.06 10*3/uL Normal <0.10 [facility] Comment on above: Order Comment: Speci men Type: BLOOD SPECIMEN Ordering Facility: [facility] Address: [address] [place] [address] Performed By: #### T SPN #### [facility] CLIA [id number] [address] [place] [address] [place] Immature granulocytes/100 WBC (Bld) 0.8 % Normal [facility] Comment on above: Order Comment: Speci men Type: BLOOD SPECIMEN Ordering Facility: [facility] Address: [address] [place] [address] Performed By: #### T SPN #### [facility] CLIA [id number] [address] [place] [address] [place] Lymphocytes (Bld) [#/Vol] 1.57 10*3/uL Normal 1.00-4.00 [facility] Comment on above: Order Comment: Speci men Type: BLOOD SPECIMEN Ordering Facility: [facility] Address: [address] [place] [address] Performed By: #### T SPN #### [facility] CLIA [id number] [address] [place] [address] [place] Lymphocytes/100 WBC (Bld) 19.8 % Normal [facility] Comment on above: Order Comment: Speci men Type: BLOOD SPECIMEN Ordering Facility: [facility] Address: [address] [place] [address] Performed By: #### T SPN #### [facility] CLIA [id number] [address] [place] [address] [place] MCH (RBC) [Entitic mass] 30.3 pg Normal 26.0-34.0 [facility] Comment on above: Order Comment: Speci men Type: BLOOD SPECIMEN Ordering Facility: [facility] Address: [address] [place] [address] Performed By: #### T SPN #### [facility] CLIA [id number] [address] [place] [address] [place] MCHC (RBC) [Mass/Vol] 33.3 g/dL Normal 30.5-36.0 [facility] Comment on above: Order Comment: Speci men Type: BLOOD SPECIMEN Ordering Facility: [facility] Address: [address] [place] [address] Performed By: #### T SPN #### [facility] CLIA [id number] [address] [place] [address] [place] MCV (RBC) [Entitic vol] 91.0 fL Normal 80.0-100.0 [facility] Comment on above: Order Comment: Speci men Type: BLOOD SPECIMEN Ordering Facility: [facility] Address: [address] [place] [address] Performed By: #### T SPN #### [facility] CLIA [id number] [address] [place] [address] [place] Monocytes (Bld) [#/Vol] 0.31 10*3/uL Normal <0.87 [facility] Comment on above: Order Comment: Speci men Type: BLOOD SPECIMEN Ordering Facility: [facility] Address: [address] [place] [address] Performed By: #### T SPN #### [facility] CLIA [id number] [address] [place] [address] [place] Monocytes/100 WBC (Bld) 3.9 % Normal [facility] Comment on above: Order Comment: Speci men Type: BLOOD SPECIMEN Ordering Facility: [facility] Address: [address] [place] [address] Performed By: #### T SPN #### [facility] CLIA [id number] [address] [place] [address] [place] Neutrophils (Bld) [#/Vol] 5.91 10*3/uL Normal 1.45-7.50 [facility] Comment on above: Order Comment: Speci men Type: BLOOD SPECIMEN Ordering Facility: [facility] Address: [address] [place] [address] Performed By: #### T SPN #### [facility] CLIA [id number] [address] [place] [address] [place] Neutrophils/100 WBC (Bld) 74.6 % Normal [facility] Comment on above: Order Comment: Speci men Type: BLOOD SPECIMEN Ordering Facility: [facility] Address: [address] [place] [address] Performed By: #### T SPN #### [facility] CLIA [id number] [address] [place] [address] [place] Nucleated RBC (Bld) [#/Vol] 10*3/uL Normal <0.01 [facility] Comment on above: Order Comment: Speci men Type: BLOOD SPECIMEN Ordering Facility: [facility] Address: [address] [place] [address] Performed By: #### T SPN #### [facility] CLIA [id number] [address] [place] [address] [place] Nucleated RBC/100 WBC (Bld) [Ratio] 0.0 /100 WBC Normal [facility] Comment on above: Order Comment: Speci men Type: BLOOD SPECIMEN Ordering Facility: [facility] Address: [address] [place] [address] Performed By: #### T SPN #### [facility] CLIA [id number] [address] [place] [address] [place] Platelet mean volume (Bld) [Entitic vol] 8.3 fL Low 9.0-12.7 [facility] Comment on above: Order Comment: Speci men Type: BLOOD SPECIMEN Ordering Facility: [facility] Address: [address] [place] [address] Performed By: #### T SPN #### [facility] CLIA [id number] [address] [place] [address] [place] Platelets (Bld) [#/Vol] 280 10*3/uL Normal 150-400 [facility] Comment on above: Order Comment: Speci men Type: BLOOD SPECIMEN Ordering Facility: [facility] Address: [address] [place] [address] Result Comment: No c lot detected. Performed By: #### T SPN #### [facility] CLIA [id number] [address] [place] [address] [place] RBC (Bld) [#/Vol] 4.32 10*6/uL Normal 3.90-5.[address] [facility] Comment on above: Order Comment: Speci men Type: BLOOD SPECIMEN Ordering Facility: [facility] Address: [address] [place] [address] Performed By: #### T SPN #### [facility] CLIA [id number] [address] [place] [address] [place] WBC (Bld) [#/Vol] 7.92 10*3/uL Normal 3.70-11.[address] [facility] Comment on above: Order Comment: Speci men Type: BLOOD SPECIMEN Ordering Facility: [facility] Address: [address] [place] [address] Performed By: #### T SPN #### [facility] CLIA [id number] [address] [place] [address] [place] HBV surface Ag Ser Qlon 08-13 HBV surface Ag Ql (S) Negative Normal Negative [facility] Comment on above: Order Comment: Speci men Type: BLOOD SPECIMENOrdering Facility: [facility] Address: [address] [place] [address] Performed By: #### 3 1201-7, 09907-1, 5195-3 ####[facility] [id number] [place] [address] [place] HCV Ab Ser Qlon 09-05-2024 HCV Ab Ql (S) Negative Normal Negative [facility] Comment on above: Order Comment: Speci men Type: BLOOD SPECIMEN Ordering Facility: [facility] Address: [address] [place] [address] Result Comment: The result suggests no evidence of active infection with Hepatitis C virus. Should recent infection be suspected, repeat testing may be considered 4-6 weeks after this draw. Performed By: #### 1 6128-1 #### [facility] CLIA [id number] [address] [place] [address] [place] HIV 1+2 Ab IA Qlon HIV 1 and 2 Ab IA.rapid Nom (S/P/Bld) Normal [facility] Comment on above: Order Comment: Speci men Type: BLOOD SPECIMEN Ordering Facility: [facility] Address: [address] [place] [address] Result Comment: Test not indicated. Performed By: #### T SPN #### [facility] CLIA [id number] [address] [place] [address] [place] HIV 1+2 Ab+HIV1 p24 Ag IA Ql Non-Reactive Normal Nonreactive [facility] Comment on above: Order Comment: Speci men Type: BLOOD SPECIMEN Ordering Facility: [facility] Address: [address] [place] [address] Performed By: #### T SPN #### [facility] CLIA [id number] [address] [place] [address] [place] HIV immunoassay testing algorithm interpretation (S/P/Bld) [Interp] Normal [facility] Comment on above: Order Comment: Speci men Type: BLOOD SPECIMEN Ordering Facility: [facility] Address: [address] [place] [address] Result Comment: No e vidence of HIV-1 or HIV-2 infection. Should recent infection be suspected, repeat testing may be considered 2-3 weeks after this draw. [place] Rev. Code 3701.243(E): This information has been disclosed to you from confidential records protected from disclosure by state law. ???You shall make no further disclosure of this information without the specific, written, and informed release of the individual to whom it pertains or as otherwise permitted by state law. A general authorization for the release of medical or other information is not sufficient for the purpose of the release of HIV test results or diagnoses. Performed By: #### T SPN #### [facility] CLIA [id number] [address] [place] [address] OF [facility] HbA1c (Bld)on 09-05-2024 Average glucose Estimated from glycated hemoglobin (Bld) [Mass/Vol] 88 mg/dL Normal [facility] Comment on above: Order Comment: Speci men Type: BLOOD SPECIMENOrdering Facility: [facility] Address: [address] [place] [address] Result Comment: eAG: (Estimated average glucose) is a calculated value from HgbA1c and is insurance sales representative of the average blood glucose level in the last 2-3 month period. Performed By: #### 5 5454-3 ####[facility] [id number] [address] STATES [facility] HbA1c (Bld) [Mass fraction] 4.7 % Normal 4.3-5.6 [facility] Comment on above: Order Comment: Speci men Type: BLOOD SPECIMENOrdering Facility: [facility] Address: [address] [place] [address] Result Comment: [place] Diabetes Association guidelines indicate that patients with HgbA1c in the range 5.7-6.4% are at increased risk for development of diabetes, and intervention by lifestyle modification may be beneficial. HgbA1c greater or equal to 6.5% is considered diagnostic of diabetes. Performed By: #### 5 5454-3 ####[facility]IA [id number] [place] [address] [place] [id number] PLUSon 09-05-2024 Cell-free DNA./Cell-free DNA.total Dosage of chromosome-specific cfDNA (cfDNA) [Molar fraction] 21% Normal [facility] Comment on above: Order Comment: Speci men Type: BLOOD SPECIMEN Ordering Facility: [facility] Address: [address] [place] [address] Performed By: #### 2 4323-8 #### [facility] CLIA [id number] [address] [place] [address] [place] Chr 13+18+21+X+Y aneuploidy Dosage of chromosome-specific cfDNA Ql (cfDNA) Negative Normal [facility] Comment on above: Order Comment: Speci men Type: BLOOD SPECIMEN Ordering Facility: [facility] Address: [address] [place] [address] Performed By: #### 2 4323-8 #### [facility] CLIA [id number] [address] [place] [address] [place] Chr 21 trisomy Dosage of chromosome-specific cfDNA Ql (cfDNA) Negative Normal [facility] Comment on above: Order Comment: Speci men Type: BLOOD SPECIMEN Ordering Facility: [facility] Address: [address] [place] [address] Performed By: #### 2 4323-8 #### [facility] CLIA [id number] [address] [place] [address] [place] Chr X and Y aneuploidy risk Sequencing Ql (cfDNA) [Interp] Not detected Normal [facility] Comment on above: Order Comment: Speci men Type: BLOOD SPECIMEN Ordering Facility: [facility] Address: [address] [place] [address] Result Comment: Not Detected Not Detected Performed By: #### 2 4323-8 #### [facility] CLIA [id number] [address] [place] [address] [place] Citation Alexandru (Reference lab test) Comment Normal [facility] Comment on above: Order Comment: Speci men Type: BLOOD SPECIMEN Ordering Facility: [facility] Address: [address] [place] [address] Result Comment: 1. Saima DANIELLE, et al. Ale Med. 2012;14(3):296-305. 2. Jason GAINES et al. Prenat Diag. 2013;33(6):591-597. 3. Ludin C, et al. Clin Chem. 2015 Apr;61(4):608-616. 4. Danelle DANIELLE et al. Ale Med. 2011;13(11):913-920. 5. ACOG/SMFM Practice Bulletin No. 226, Jul 2020. Performed By: #### 2 4323-8 #### [facility] CLIA [id number] [address] [place] [address] [place] Gestational age Estimated from conception date Roach Normal [facility] Comment on above: Order Comment: Festus lind Type: BLOOD SPECIMEN Ordering Facility: [facility] Address: [address] [place] [address] Performed By: #### 2 4323-8 #### [facility] CLIA [id number] [address] [place] [address] [place] GESTATIONALAGE AGE > OR = 9W Yes Normal [facility] Comment on above: Order Comment: Festus lind Type: BLOOD SPECIMEN Ordering Facility: [facility] Address: [address] [place] [address] Performed By: #### 2 4323-8 #### [facility] CLIA [id number] [address] [place] [address] [place] Laboratory comment Alexandru (Report) Comment Normal [facility] Comment on above: Order Comment: Festus lind Type: BLOOD SPECIMEN Ordering Facility: [facility] Address: [address] [place] [address] Result Comment: The MaterniT(R) 21 PLUS laboratory-developed test (LDT) analyzes circulating cell-free DNA from a maternal blood sample. This test is used for screening purposes and not diagnostic. Clinical correlation is recommended. Validation data on twin pregnancies is limited and the ability of this test to detect aneuploidy in higher multiple gestations has not yet been validated. Performed By: #### 2 4323-8 #### [facility] CLIA [id number] [address] [place] [address] [place] music director name Nom (Provider) Comment Normal [facility] Comment on above: Order Comment: eFstus lind Type: BLOOD SPECIMEN Ordering Facility: [facility] Address: [address] [place] [address] Result Comment: This specimen showed an expected representation of chromosome 21, 18 and 13 material. Clinical correlation is suggested. Comment Livan Ramirez MD, PhD, Director, [facility] Performed By: #### 2 4323-8 #### [facility] CLIA [id number] [address] [place] [address] LIMITATIONS OF THE TEST Comment Normal [facility] Comment on above: Order Comment: Festus lind Type: BLOOD SPECIMEN Ordering Facility: [facility] Address: [address] [place] [address] Result Comment: Aureliano capmos the results of these tests are highly reliable, discordant results, including inaccurate sex prediction, may occur due to placental, maternal, or mosaicism or neoplasm; vanishing twin; prior maternal organ transplant; or other causes. These tests are screening tests and not diagnostic; they do not replace the accuracy and precision of diagnosis with CVS or amniocentesis. A patient with a positive test result should be referred for genetic counseling and offered invasive diagnosis for confirmation of test results.[5] The results of this testing, including the benefits and limitations, should be discussed with a qualified healthcare provider. management decisions, including termination of the , should not be based on the results of these tests alone. The healthcare provider is responsible for the use of this information in the management of their patient. Sex chromosomal aneuploidies are not reportable for known multiple gestations. A negative result does not ensure an unaffected nor does it exclude the possibility of other chromosomal abnormalities or defects which are not a part of these tests. An uninformative result may be reported, the causes of which may include, but are not limited to, insufficient sequencing coverage, noise or artifacts in the region, amplification or sequencing bias, or insufficient fraction. These tests are not intended to identify pregnancies at risk for neural tube defects or ventral wall defects. Testing for whole chromosome abnormalities (including sex chromosomes) and for subchromosomal abnormalities could lead to the potential discovery of both and maternal genomic abnormalities that could have major, minor, or no, clinical significance. Evaluating the significance of a positive or a non-reportable result may involve both invasive testing and additional studies on the mother. Such investigations may lead to a diagnosis of maternal chromosomal or subchromosomal abnormalities, which on occasion may be associated with benign or malignant maternal neoplasms. These tests may not accurately identify triploidy, balanced rearrangements, or the precise location of subchromosomal duplications or deletions; these may be detected by diagnosis with CVS or amniocentesis. The ability to report results may be impacted by maternal BMI, maternal weight, maternal systemic lupus erythematosus (SLE) and/or by certain pharmaceutical agents such as low molecular weight heparin (for example: Lovenox(R), Xaparin(R), Clexane(R) and Fragmin(R)). Performed By: #### 2 4323-8 #### [facility] CLIA [id number] [address] [place] [address] Monosomy X risk Dosage of chromosome-specific cfDNA Ql (Plasma cell-free+WBC DNA) [Interp] Not detected Normal [facility] Comment on above: Order Comment: Speci men Type: BLOOD SPECIMEN Ordering Facility: [facility] Address: [address] [place] [address] Performed By: #### 2 4323-8 #### [facility] CLIA [id number] [address] [place] [address] NEGATIVE PREDICTIVE VALUE Note Normal [facility] Comment on above: Order Comment: Speci men Type: BLOOD SPECIMEN Ordering Facility: [facility] Address: [address] [place] [address] Result Comment: The Negative Predictive Value (NPV) for trisomy 21, 18, and 13 is greater than 99%. The NPV for SCA and ESS cannot be calculated as SCA and ESS are only reported when an abnormality is detected. Performed By: #### 2 4323-8 #### [facility] CLIA [id number] [address] [place] [address] [place] NOTE Comment Normal [facility] Comment on above: Order Comment: Festus lind Type: BLOOD SPECIMEN Ordering Facility: [facility] Address: [address] [place] [address] Result Comment: See Notes [employer] is a subsidiary of [employer], using the brand [facility]. This test was developed and its performance characteristics determined by [employer]. It has not been cleared or approved by the Food and Drug Administration. This laboratory is certified under the Clinical Laboratory Improvement Amendments (CLIA) as qualified to perform high complexity clinical laboratory testing and accredited by the [employer] [place] (CAP). If there is future clinical need for adding MaterniT GENOME testing, this specimen will be available until term. [facility] samples will not be retained beyond 60 days. [facility] patients will have to send a new sample for re-sequencing ([facility] Test Code: [id number]). Performed By: #### 2 4323-8 #### [facility] CLIA [id number] [address] [place], [place] [address] [address] [employer] Note Normal [facility] Comment on above: Order Comment: Festus lind Type: BLOOD SPECIMEN Ordering Facility: [facility] Address: [address] [place] [address] Result Comment: ! Sex ! Accuracy: 99.4% ! ! ! ! Region (associated syndrome) ! Est. Sens# ! Est. Spec ! ! ! ! Trisomy 21 (Down Syndrome) ! 99.1% ! 99.9% ! ! ! ! Trisomy 18 (Ellington Syndrome) ! >99.9% ! 99.6% ! ! ! ! Trisomy 13 ([place] Syndrome) ! 91.7% ! 99.7% ! ! ! ! Sex Chromosome Aneuploidies## ! 96.2% ! 99.7% ! ! ! * As reported in ISCA database nstd37 [https://www.ncbi.nlm.nih.gov/dbvar/studies/nstd37/ ] # Estimated Sensitivity. Sensitivity estimated across the observed size distribution of each syndrome [per ISCA database nstd37] and across the range of fractions observed in routine clinical NIPT. Actual sensitivity can also be influenced by other factors such as the size of the event, total sequence counts, amplification bias, or sequence bias. ## Roach gestation only. Performed By: #### 2 4323-8 #### [facility] CLIA [id number] [address] [place] [address] [place] POSITIVE PREDICTIVE VALUE N/A Normal [facility] Comment on above: Order Comment: Speci men Type: BLOOD SPECIMEN Ordering Facility: [facility] Address: [address] [place] [address] Performed By: #### 2 4323-8 #### [facility] [place] [id number] [address] [place] [address] [place] Reference Lab Test Method Comment Normal [facility] Comment on above: Order Comment: Speci men Type: BLOOD SPECIMEN Ordering Facility: [facility] Address: [address] [place] [address] Result Comment: See Notes Circulating cell-free DNA was purified from the plasma component of maternal blood. The extracted DNA was then converted into a genomic DNA library for aneuploidy analysis of chromosomes 21, 18, and 13 via next generation sequencing.[1] Optional findings based on the test order include sex chromosome aneuploidy (SCA)[2], and enhanced sequencing series (ESS)[3], which will only be reported on as an additional finding when an abnormality is detected. SCA testing includes information on X and Y representation, while ESS testing includes deletions in selected regions (22q, 15q, 11q, 8q, 5p, 4p, 1p) and trisomy of chromosomes 16 and 22. Performed By: #### 2 4323-8 #### [facility] LAB [place] [id number] [address] [place] [address] [place] Sex Dosage of chromosome-specific cfDNA Nom (cfDNA) Comment Normal [facility] Comment on above: Order Comment: Speci men Type: BLOOD SPECIMEN Ordering Facility: [facility] Address: [address] [place] [address] Result Comment: Cons istent with Male Performed By: #### 2 4323-8 #### [facility] IA [id number] [address] [place] [address] [place] Test performance information Alexandru (Unsp spec) Comment Normal [facility] Comment on above: Order Comment: Speci men Type: BLOOD SPECIMEN Ordering Facility: [facility] Address: [address] [place] [address] Result Comment: The performance characteristics of the MaterniT(R) 21 PLUS laboratory-developed test (LDT) have been determined in a clinical validation study with women at increased risk for chromosomal aneuploidy.[1-4] Performed By: #### 2 4323-8 #### [facility] CLIA [id number] [address] [place] [address] [place] Trisomy 13 risk Dosage of chromosome-specific cfDNA Ql (cfDNA) [Interp] Negative Normal [facility] Comment on above: Order Comment: Speci men Type: BLOOD SPECIMEN Ordering Facility: [facility] Address: [address] [place] [address] Performed By: #### 2 4323-8 #### [facility] CLIA [id number] [address] [place] [address] [place] Trisomy 18 risk Dosage of chromosome-specific cfDNA Ql (Plasma cell-free+WBC DNA) [Interp] Negative Normal [facility] Comment on above: Order Comment: Speci men Type: BLOOD SPECIMEN Ordering Facility: [facility] Address: [address] [place] [address] Performed By: #### 2 4323-8 #### [facility] CLIA [id number] [address] [place] [address] [place] RUBELLA IGG ANTIBODYon 09-05 RUBELLA IGG AB, QUAL Positive Normal Positive [facility] Comment on above: Order Comment: Speci men Type: BLOOD SPECIMEN Ordering Facility: [facility] Address: [address] [place] [address] Result Comment: The result suggests recent or past exposure to Rubella virus or history of Rubella vaccination. Positive result may also be seen due to presence of passively-transferred antibodies. Please correlate with patient's history. Performed By: #### 2 1198-7 #### [facility] CLIA [id number] [address] [place] [address] [place] Reagin and Treponema pallidu m IgG and IgM [Interp]on 09-05-2024 T. pallidum IgG+IgM IA Ql (S) Non-Reactive Normal Nonreactive [facility] Comment on above: Order Comment: Speci men Type: BLOOD SPECIMEN Ordering Facility: [facility] Address: [address] [place] [address] Performed By: #### T SPN #### [facility] CLIA [id number] [address] [place] [address] [place] Reagin+T pallidum IgG+IgM Se rPl-Impon 09-05-2024 Reagin and Treponema pallidum IgG and IgM [Interp] Cannot exclude recent Treponemal infection if specimen collected within 7-10 days after appearance of suspect lesions or 2-3 weeks after an exposure. Clinical correlation is required. Normal [facility] Comment on above: Order Comment: Speci men Type: BLOOD SPECIMEN Ordering Facility: [facility] Address: [address] [place] [address] Performed By: #### T SPN #### [facility] CLIA [id number] [address] [place] [address] [place] TYPE + SCREEN PRENATALon ABO A Normal [facility] Comment on above: Order Comment: Speci men Type: BLOOD SPECIMEN Ordering Facility: [facility] Address: [address] [place] [address] Performed By: #### T SPN #### [facility] CLIA [id number] [address] [place] [address] [place] Rh Nom (Bld) Positive Normal [facility] Comment on above: Order Comment: Speci men Type: BLOOD SPECIMEN Ordering Facility: [facility] Address: [address] [place] [address] Performed By: #### T SPN #### [facility] CLIA [id number] [address] [place] [address] [place] TYPE AND SCREEN EXPIRATION 09/08/2024 23:59 Normal [facility] Comment on above: Order Comment: Speci men Type: BLOOD SPECIMEN Ordering Facility: [facility] Address: [address] [place], [place] [address] Performed By: #### T SPN #### [facility] [id number] [address] [place], [place] [address] OF [facility] Padma 08-19-2024 CNPN Telephone (VERONICAGRICEL) LEELEE ZAMORA ([id number]) 1995 F Date Time Provider Department 08/19/24 SOLE IRAHETA During your visit today, we recorded the following information about you: Sole Iraheta RN 08/19/2024 9:57 AM Signed 1st risk assessment form submitted 08/19/24. Sole Iraheta RN Allergies As of Date: 08/19/2024 Noted Allergy Reaction CAT DANDER 07/22/2023 4 - Hives CRANBERRY 07/22/2023 2 - Rash HOUSE DUST 07/22/2023 4 - Hives MOLD 07/22/2023 14 - Other: See Comments PEANUT 07/22/2023 7 - Swelling TREE NUTS 07/02/2022 2 - Rash MORPHINE 03/23/2017 14 - Other: See Comments Comments: Tightness in chest Date Reviewed: 08/18/2024 Reviewed by: Theresa Bynum LPN - Fully Assessed Reason for Visit: PRAF [4193] Prescriptions as of 08/19/2024 - aspirin, enteric coated (ECOTRIN LOW STRENGTH) 81 mg EC tablet Take 1 tablet by mouth once daily. - PNV 058-trksd-wygit-3-fish oil 400-32.5 mcg-mg chew - albuterol HFA (PROAIR HFA) 90 mcg/actuation inhaler Inhale 2 Puffs as instructed. Problem List As Of Date 08/19/2024 Noted Resolved Class 2 obesity without serious comorbidity wit*03/09/2018 12/07/2023 Vitamin D deficiency [E55.9] 12/16/2018 SAMAN (generalized anxiety disorder) [F41.1] 12/16/2018 History of gastroesophageal reflux (GERD) [Z87.*12/16/2018 Allergic rhinitis, unspecified [J30.9] 12/16/2018 Ex-smoker [Z87.891] 12/16/2018 Psoriasis [L40.9] 12/16/2018 Encounter for insertion of mirena IUD [Z30.430] 12/16/2018 12/07/2023 Acute deep vein thrombosis (DVT) of popliteal v*02/202212/07/2023 IUD (intrauterine device) in place [Z97.5] 11/06/2022 12/07/2023 Polycystic ovary syndrome [E28.2] 12/17/2022 Obesity, Class II, BMI 35-39.9 [E66.812] 07/02/2023 07/06/2023 Obesity, Class II, BMI 35-39.9 [E66.812] 07/06/2023 Liver hemangioma [D18.03] 09/16/2023 Vapes nicotine containing substance [Z72.0] 10/01/2023 Acute deep vein thrombosis (DVT) of right upper*10/01/2023 Encounter for supervision of normal i*08/18/2024 History of maternal fourth degree perineal lace*08/18/2024 Rectovaginal fistula [N82.3] 08/18/2024 Encounter Status:Closed by SOLE IRAHETA on 08/19/24 Normal [facility] BACTERIAL VAGINOSIS NAATon 1 10-18-2023 Lactobacillus crispatus+gasseri+yumi senii + Gardnerella vaginalis + Atopobium vaginae rRNA SANJEEV+probe Ql (Vag fld) Negative Normal Negative for bacterial vaginosis [facility] Comment on above: Order Comment: Speci men Type: BLOOD SPECIMEN Ordering Facility: [facility] Address: [address] [place] [address] Performed By: #### 2 4323-8 #### [facility] CLIA [id number] [address] [place] [address] [place] [address] [place] Bacteria Ur Culton 4 Bacteria identified Cx Nom (U) ORGANISM ID: 1 10,000 -<50,000 CFU/ml Normal urogenital mark Normal [facility] Comment on above: Performed By: #### 6 30-4 ####[facility] [id number] [place] [address] [place] C. trachomatis+N. gonorrhoea e DNA SANJEEV+probe Ql (Unsp spec)on 08-18-2024 C. trachomatis rRNA SANJEEV+probe Ql (Unsp spec) Negative Normal Negative for Chlamydia trachomatis by amplificaton [facility] Comment on above: Order Comment: Speci men Type: BLOOD SPECIMEN Ordering Facility: [facility] Address: [address] [place] [address] Performed By: #### 2 4323-8 #### [facility] CLIA [id number] [address] [place] [address] [place] N. gonorrhoeae rRNA SANJEEV+probe Ql (Unsp spec) Negative Normal Negative for Neisseria gonorrhoeae by amplification [facility] Comment on above: Order Comment: Speci men Type: BLOOD SPECIMEN Ordering Facility: [facility] Address: [address] [place] [address] Performed By: #### 2 4323-8 #### [facility] CLIA [id number] [address] [place] [address] [place] JOJO/TRICHOMONAS NAATon 1 10-18-2023 C. glabrata RNA SANJEEV+probe Ql (Vag fld) Negative Normal Negative for Jojo glabrata [facility] Comment on above: Order Comment: Speci men Type: BLOOD SPECIMEN Ordering Facility: [facility] Address: [address] [place] [address] Performed By: #### 2 1198-7 #### [facility] CLIA [id number] [address] [place] [address] [place] Jojo sp DNA SANJEEV+probe Ql (Vag fld) Negative Normal Negative for Jojo species [facility] Comment on above: Order Comment: Speci men Type: BLOOD SPECIMEN Ordering Facility: [facility] Address: [address] [place] [address] Performed By: #### 2 1198-7 #### [facility] CLIA [id number] [address] [place] [address] [place] T. 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 Confirmation of cardiac activity Impression CRL is appropriate for clinical dates, corresponding to MJ 04/01/25 cardiac activity is visualized Recommendations Follow up for NT scan if desired Method Transvaginal ultrasound examination. View: Adequate visualization Roach . Number of embryos: 1 Dating LMP on: 06/25/2024 GA by LMP 7 w + 5 d MJ by LMP: 04/01/2025 Ultrasound examination on: 08/18/2024 GA by U/S based upon: CRL GA by U/S 7 w + 4 d MJ by U/S: 04/02/2025 Assigned: based on the LMP, selected on 08/18/2024 Assigned GA 7 w + 5 d Assigned MJ: 04/01/2025 Biometry Standard FHR 149 bpm CRL 13.4 mm 7w 4d 74% Hadlock Assessment Gestational sac: visualized Location: intrauterine Yolk sac: visualized Embryo: visualized CRL 13.4 mm 7w 4d 74% Hadlock Cardiac activity: present FHR 149 bpm General Evaluation Cardiac activity present. FHR 149 bpm Performed By: Jammie Funes CNP Read By: Jammie Funes CNP MATERNAL MEDICINE [facility] Radiology Study observation (narrative) [facility] Padma 08-03-2024 CNPN Telephone (FAMPWS) RICKILEELEE SHIN Lewis ([id number]) 1995 F Date Time Provider Department 08/03/24 ROVERTO DIANE During your visit today, we recorded the following information about you: Katya Tinsely RN 08/03/2024 1:19 PM Signed Patient calls and states that for the past 4 days she has had liquid diarrhea after she eats or drinks. Patient states that she has had a history of C-diff in 2021. Patient reports that she is 5 weeks and is worried if she would have diarrhea. Advised patient that she needs to come into office to be evaluated. Patient voiced understanding. Patient scheduled to see Cooper tomorrow morning 09/04/2024 to discuss. Advised patient that if she starts to have symptoms of dizziness then she needs to go to ER to be evaluated. Patient voices understanding. Katya Tinsley RN Allergies As of Date: 08/03/2024 Noted Allergy Reaction TREE NUTS 07/02/2022 2 - Rash MORPHINE 03/23/2017 14 - Other: See Comments Comments: Tightness in chest Date Reviewed: 07/25/2024 Reviewed by: Lilly Conklin MA - Fully Assessed Reason for Visit: Patient Update [1234] Problem List As Of Date 08/03/2024 Noted Resolved Class 2 obesity without serious comorbidity wit*03/09/2018 12/07/2023 Vitamin D deficiency [E55.9] 12/16/2018 SAMAN (generalized anxiety disorder) [F41.1] 12/16/2018 History of gastroesophageal reflux (GERD) [Z87.*12/16/2018 Allergic rhinitis, unspecified [J30.9] 12/16/2018 Ex-smoker [Z87.891] 12/16/2018 Psoriasis [L40.9] 12/16/2018 Encounter for insertion of mirena IUD [Z30.430] 12/16/2018 12/07/2023 Acute deep vein thrombosis (DVT) of popliteal v*02/202212/07/2023 IUD (intrauterine device) in place [Z97.5] 11/06/2022 12/07/2023 Polycystic ovary syndrome [E28.2] 12/17/2022 Obesity, Class II, BMI 35-39.9 [E66.812] 07/02/2023 07/06/2023 Obesity, Class II, BMI 35-39.9 [E66.812] 07/06/2023 Liver hemangioma [D18.03] 09/16/2023 Vapes nicotine containing substance [Z72.0] 10/01/2023 Acute deep vein thrombosis (DVT) of right upper*10/01/2023 Encounter Status:Closed by KATYA TINSLEY on 08/03/24 Normal [facility] B-HCG SerPl-aCncon 4 HCG.beta subunit Qn 609.7 m[IU]/mL High <5.0 [facility] Comment on above: Order Comment: Festus lind Type: BLOOD SPECIMEN Ordering Facility: [facility] Address: [address] [place] [address] Result Comment: GOGO TITATIVE HCG NORMAL RANGES Weeks of Gestation (Weeks Since LMP) 3 Weeks (5.8-71.2 mIU/mL) 4 Weeks (9.5-750 mIU/mL) 5 Weeks (217-7138 mIU/mL) 6 Weeks (158-87275 mIU/mL) 7 Weeks (3697-591513 mIU/mL) 8 Weeks (24352-431539 mIU/mL) 9 Weeks (34187-412685 mIU/mL) 10 Weeks (54083-731817 mIU/mL) 12 Weeks (89760-082968 mIU/mL) Referenced to 4th IS of [facility] Performed By: #### 2 1198-7 #### [facility] CLIA [id number] [address] [place] [address] [place] [address] [place] B-HCG SerPl-aCncon 4 HCG.beta subunit Qn 281.1 m[IU]/mL High <5.0 [facility] Comment on above: Order Comment: Speci men Type: BLOOD SPECIMEN Ordering Facility: [facility] Address: [address] [place] [address] Result Comment: GOGO TITATIVE HCG NORMAL RANGES Weeks of Gestation (Weeks Since LMP) 3 Weeks (5.8-71.2 mIU/mL) 4 Weeks (9.5-750 mIU/mL) 5 Weeks (217-7138 mIU/mL) 6 Weeks (158-65512 mIU/mL) 7 Weeks (3697-950663 mIU/mL) 8 Weeks (22479-882991 mIU/mL) 9 Weeks (39331-791658 mIU/mL) 10 Weeks (96450-751889 mIU/mL) 12 Weeks (59144-931805 mIU/mL) Referenced to 4th IS of [facility] Performed By: #### 2 1198-7 #### [facility] CLIA [id number] [address] [place], [place] [address] [address] OF [facility] CNOVon 07-25-2024 CNOV Office Visit (OBGYWM ) LEELEE ZAMORA ([id number]) 1995 F Date Time Provider Department 07/25/24 1:10 PM ANGELA PAUL OBANDREWJeffrey During your visit today, we recorded the following information about you: Blood pressure Weight Last Period 128/60 92.5 kg 06/25/24 Angela Paul MD 07/25/2024 1:36 PM Signed Leelee Zamora is a 29 year old female who presents for confirmation. HPI: Patient is here for confirmation. Previous delivery with Dr. Julia Rodas of [place]. 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 H/o DVT post op. Saw a silk folder about 2 weeks ago. Denies DBT during , or while on hormonal contraception. 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 Menstrual cycles q 30 days with 5-6 days bleeding. LMP 06/25/2024 that is exact. [facility]. Having some vaginal and pelvic cramping and pressure. No bleeding. 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 History of chlamydia 16 YO History of gastroesophageal reflux (GERD) 12/16/2018 History of morbid obesity PCOS (polycystic ovarian syndrome) Psoriasis 12/16/2018 Vitamin D deficiency 12/16/2018 PAST SURGICAL HISTORY Procedure Laterality Date CYST EXCISION 2016 right leg DANDC, DIAG AND/OR THERAPEUTIC 2019 EXTRACTION, ERUPTED TOOTH OR EXPOSED ROOT (ELEVATION AND/OR FORCEPS REMOVAL) 2012 LAPS SURG CHOLECYSTECTOMY W/CHOLANGIOGRAPHY 10/14/2023 Dr. Macdonald LOCAL REVISION OF ILESTOMY 02/24/2022 LYSIS OF ADHESIONS 10/14/2023 Dr. Macdonald PAST SURGICAL HISTORY OF multiplr vaginoplasty- RV fistual after FAVD AND 4th degree REMOVAL GALLBLADDER 10/14/2023 FAMILY HISTORY Problem Relation Age of Onset Heart disease Mother arythmia Diabetes Father Hypertension Father Thyroid Cancer Paternal Aunt 52 Cervical Cancer Paternal Aunt Uterine Cancer Paternal Aunt Breast Cancer Paternal Aunt 20 - 29 Ovarian cancer Paternal Aunt 20 - 29 Thyroid Cancer Paternal Aunt 19 resolved Breast Cancer Paternal Aunt 20 - 29 Kidney Disease Maternal Grandmother other (lupus) Maternal Grandmother Stroke Maternal Grandmother Heart Attack Maternal Grandmother Blood Clots Maternal Grandmother Colon Cancer Paternal Grandmother late 50's Coronary Artery Disease Paternal Grandmother 40's Diabetes Paternal Grandmother Hypertension Paternal Grandmother Diabetes Paternal Grandfather Hypertension Paternal Grandfather Alzheimer's Disease No Family History Hyperlipidemia No Family History Thyroid No Family History Seizures No Family History Social History Tobacco Use Smoking status: Some Days Types: Cigarettes Smokeless tobacco: Never Tobacco comments: Stopped smoking cigarettes, just uses vape now Vaping Use Vaping status: current everyday user Start date: 05/12/2023 Substances: Nicotine, Flavoring Devices: Disposable Substance Use Topics Alcohol use: Yes Alcohol/week: 1.0 standard drink of alcohol Types: 1 Cans of beer per week Comment: monthly Drug use: No No current outpatient medications on file. No current facility-administered medications for this visit. Allergies As of Date: 07/25/2024 Allergen Noted Reaction TREE NUTS 07/02/2022 Rash MORPHINE 03/23/2017 Other: See Comments Fully Assessed 07/25/2024 REVIEW OF SYSTEMS Abdomen: No abdominal pain, nausea, vomiting, diarrhea. +Constipation Expanded ROS: N/A Allergies and current medication updated:Yes SENSITIVE EXAM: Sensitive exam not performed. EXAM: BP 128/60 Wt 204 lb (92.5kg) LMP 06/25/2024 GENERAL: pleasant, female in no apparent distress HEENT: Normocephalic and atraumatic NECK: full range of motion DERMATOLOGY: Normal, without lesions, non-icteric, and non-hirsute BREAST: deferred CHEST: Normal inspiratory effort ABDOMEN: soft, non-tender, and no masses PELVIC: deferred BIMANUAL: deferred NEURO: exam grossly non-focal EXTREMITIES: normal ASSESSMENT AND PLAN: Assessment AND Plan Early stage of pre (more content not included)... Normal [facility] Pdama 07-22-2024 HODA Telephone (OBGYWM) LEELEE ZAMORA ([id number]) 1995 F Date Time Provider Department 07/22/24 SANDHYA REON During your visit today, we recorded the following information about you: Lenin Decker RN 07/22/2024 12:36 PM Signed LMP 06/25/24 - 3w6d Had faint UPT at home today. Concerned because last she said she had infertility treatment and has some questions regarding her and being high risk. She is a previous [facility] patient and now wants to continue care with [facility]. I did schedule for 07/25 to discuss concerns with SW, but patient is asking if she can have blood test done prior to that visit to make sure she is . No bleeding, cramping or other symptoms as of now. TERRY Tam Jessica, APRN.KG 07/22/2024 1:25 PM Signed Unfortunately patient is not established with us and will need appointment first to discuss. Can review with SW at visit and orders. I apologize. MYCHAL iLang Jennifer, RN 07/22/2024 1:35 PM Signed Attempted to notify patient. No answer and unable to leave a voicemail. Marietta Werner RN Allergies As of Date: 07/22/2024 Noted Allergy Reaction TREE NUTS 07/02/2022 2 - Rash MORPHINE 03/23/2017 14 - Other: See Comments Comments: Tightness in chest Date Reviewed: 07/12/2024 Reviewed by: Angi Santos MD - Fully Assessed Reason for Visit: Patient Question [2607] Primary Visit Diagnosis:Positive urine test [Z32.01] Prescriptions as of 07/25/2024 - atomoxetine (STRATTERA) 10 mg capsule Take 1 capsule by mouth once daily. - dulaglutide (TRULICITY) 3 mg/0.5 mL pen injector INJECT 1 PEN SUBCUTANEOUSLY EVERY WEEK - topiramate (TOPAMAX) 25 mg tablet Take 4 tablets by mouth once daily. Problem List As Of Date 07/22/2024 Noted Resolved Class 2 obesity without serious comorbidity wit*03/09/2018 12/07/2023 Vitamin D deficiency [E55.9] 12/16/2018 SAMAN (generalized anxiety disorder) [F41.1] 12/16/2018 History of gastroesophageal reflux (GERD) [Z87.*12/16/2018 Allergic rhinitis, unspecified [J30.9] 12/16/2018 Ex-smoker [Z87.891] 12/16/2018 Psoriasis [L40.9] 12/16/2018 Encounter for insertion of mirena IUD [Z30.430] 12/16/2018 12/07/2023 Acute deep vein thrombosis (DVT) of popliteal v*02/202212/07/2023 IUD (intrauterine device) in place [Z97.5] 11/06/2022 12/07/2023 Polycystic ovary syndrome [E28.2] 12/17/2022 Obesity, Class II, BMI 35-39.9 [E66.812] 07/02/2023 07/06/2023 Obesity, Class II, BMI 35-39.9 [E66.812] 07/06/2023 Liver hemangioma [D18.03] 09/16/2023 Vapes nicotine containing substance [Z72.0] 10/01/2023 Acute deep vein thrombosis (DVT) of right upper*10/01/2023 Encounter Status:Closed by MARIETTA WERNER on 07/25/24 Normal [facility] CARDIOLIPIN IGG ABSon 2023 Cardiolipin IgG IA Qn (S) <9.0 Normal <15.0 [facility] Comment on above: Order Comment: Speci men Type: BLOOD SPECIMEN Ordering Facility: [facility] Address: [address] [place] [address] Result Comment: <15 GPL Negative 15-20 GPL Indeterminate >20 GPL Positive The following results were obtained with the [employer] QUANTA Lite JUAN RAMON IgG III AUBREE. Cardiolipin IgG values obtained with the different manufacturers' assay methods may not be used interchangeably. The magnitude of the reported IgG levels cannot be correlated to an endpoint titer. Performed By: #### P TGEN #### [facility] CLIA [id number] [address] [place] [address] [place] [address] [place] CARDIOLIPIN IGM ABSon 2023 Cardiolipin IgM IA Qn (S) <9.0 Normal <12.5 [facility] Comment on above: Order Comment: Speci men Type: BLOOD SPECIMEN Ordering Facility: [facility] Address: [address] [place] [address] Result Comment: <12. 5 MPL Negative 12.5-20 MPL Indeterminate >20 MPL Positive The following results were obtained with the [employer] QUANTA Lite JUAN RAMON IgM III AUBREE. Cardiolipin IgM values obtained with the different manufacturers' assay methods may not be used interchangeably. The magnitude of the reported IgM levels cannot be correlated to an endpoint titer. ??? Performed By: #### P TGEN #### [facility] CLIA [id number] [address] [place], [place] [address] [address] CNOVSPon 07-12-2024 CNOVSP Visit (SP) Office (HEMMED) LEELEE ZAMORA Lewis ([id number]) 1995 F Date Time Provider Department 07/12/24 10:50 AM ANGI SANTOS During your visit today, we recorded the following information about you: Temperature Pulse Respiration Blood pressure 98 degrees 75/minute 18/minute 108/88 Weight 91.6 kg Angi Santos MD 08/09/2024 12:02 AM Signed Consultation requested by Darlin Ling APRN.CNP for an opinion regarding history of blood clots. My final recommendations will be communicated back to the requesting physician by way of shared Medical record or letter to requesting physician via US mail. Presenting complaint: Patient Leelee Zamora was sent to my office to be evaluated for history of blood clots. ASSESSMENT: (Z86.278) History of blood clots (primary encounter diagnosis) (I47.9) PT (paroxysmal tachycardia) (HCC) (R79.1) INR (international normal ratio) abnormal (Z87.898) History of syncope Comment: Patient is delightful 29 year old lady, single mother, in college, first childbirth on 04/05/2021 at age 25 years, delivery was complicated with fourth degree laceration after forceps assisted delivery with rectovaginal fistula formation requiring multiple repairs. She had DVT of popliteal vein of right lower extremity in February 2022 post op ileostomy when she was bedridden. DVT was no related to , post or hormonal contraception. She had a lap cholecystectomy with lysis of adhesions on 10/14/2023 with no post op complications. She has history of paroxysmal tachycardia and history of syncope. Patient was seen by plastic surgery for excess skin of abdomen and thighs after weight loss. She has had infections and trouble with ADLs such as wearing clothes and exercising and using nystatin powder for 1 year. Patient was planned for panniculectomy on 08/07/2024. Plan: Based on description of DVT in 2021, it appears that it was provoked by infection and bedridden status during hospital stay. This patient had successful surgical procedures after DVT occurrence, so she might not require any anticoagulation if she has negative hypercoagulable diagnostic panel results. Plan to obtain hypercoagulable diagnostic panel based on young age Plan to obtain coagulation screen and fibrinogen Return if symptoms worsen or fail to improve. I spent 39 minutes in the visit, with more than 50% of the total tyta-ep-ytyz time of the visit in counseling / coordination of care. HPI: Patient is delightful 29 year old lady, single mother, in college, first childbirth on 04/05/2021 at age 25 years, delivery was complicated with fourth degree laceration after forceps assisted delivery with rectovaginal fistula formation requiring multiple repairs. She had DVT of popliteal vein of right lower extremity in February 2022 post op ileostomy when she was bedridden. DVT was no related to , post or hormonal contraception. She had a lap cholecystectomy with lysis of adhesions on 10/14/2023 with no post op complications. She has history of paroxysmal tachycardia and history of syncope. Patient was seen by plastic surgery for excess skin of abdomen and thighs after weight loss. She has had infections and trouble with ADLs such as wearing clothes and exercising and using nystatin powder for 1 year. Patient was planned for panniculectomy on 08/07/2024. PAST MEDICAL HISTORY Diagnosis Date Acute deep vein thrombosis (DVT) of popliteal vein of right lower extremity (HCC) 02/2022 Allergic rhinitis, unspecified 12/16/2018 Bowel obstruction (HCC) 2022 Encounter for insertion of Mirena IUD 12/24/2021 Ex-smoker 12/16/2018 Started at age 19 up to 1/2-1 PPD, quit 05/2018 SAMAN (generalized anxiety disorder) 12/16/2018 Seeing Klaus Gonzalez at the [facility] center. History of chlamydia 16 YO History of gastroesophageal reflux (GERD) 12/16/2018 History of morbid obesity PCOS (polycystic ovarian syndrome) Psoriasis 12/16/2018 Vitamin D deficiency 12/16/2018 PAST SURGICAL HISTORY Procedure Laterality Date CYST EXCISION 2016 right leg DANDC, DIAG AND/OR THERAPEUTIC 2020 EXTRACTION, ERUPTED TOOTH OR EXPOSED ROOT (ELEVATION AND/OR FORCEPS REMOVAL) 2012 LAPS SURG CHOLECYSTECTOMY W/CHOLANGIOGRAPHY 10/14/2023 Dr. Macdonald LOCAL REVISION OF ILESTOMY 02/24/2022 LYSIS OF ADHESIONS 10/14/2023 Dr. Macdonald PAST SURGICAL HISTORY OF multiplr vaginoplasty- RV fistual after FAVD AND 4th degree REMOVAL GALLBLADDER 10/14/2023 FAMILY HISTORY Problem Relation Age of Onset Heart disease Mother arythmia Diabetes Father Hypertension Father Thyroid Cancer Paternal Aunt 52 Cervical Cancer Paternal Aunt Uterine Cancer Paternal Aunt Breast Cancer Paternal Aunt 20 - 29 Ovarian cancer Paternal Aunt 20 - 29 Thyroid Cancer Paternal Aunt 19 resolved Breast Cancer Paternal Aunt 20 - (more content not included)... Normal [facility] COAG CORE PANEL BLDon 2023 aPTT Coag (PPP) [Time] 27.1 s Normal 23.0-32.4 [facility] Comment on above: Order Comment: Speci men Type: BLOOD SPECIMEN Ordering Facility: [facility] Address: [address] [place] [address] Performed By: #### P TGEN #### [facility] CLIA [id number] [address] [place] [address] [place] Fibrinogen Coag (PPP) [Mass/Vol] 422 mg/dL High 200-400 [facility] Comment on above: Order Comment: Speci men Type: BLOOD SPECIMEN Ordering Facility: [facility] Address: [address] [place] [address] Performed By: #### P TGEN #### [facility] CLIA [id number] [address] [place] [address] [place] INR Coag (PPP) [Relative time] 0.9 {INR} Normal 0.9-1.3 [facility] Comment on above: Order Comment: Speci men Type: BLOOD SPECIMEN Ordering Facility: [facility] Address: [address] [place] [address] Result Comment: Tara min K Antagonist (VKA) Therapeutic Range: INR 2 to 3 (Target INR of 2.5) Note: For patients treated with VKA drugs, such as warfarin, the [place] [employer] 2012 Guideline recommends a therapeutic INR range of 2 to 3 (target INR of 2.5). This recommendation includes high-risk patients with antiphospholipid syndrome with previous arterial or venous thromboembolism, current-generation mechanical or bioprosthetic aortic heart valve replacement. Note: Patients with mechanical aortic valve replacement and additional risk factors for thromboembolic events (atrial fibrillation, previous thromboembolism, LV dysfunction, hypercoagulable conditions) or an older generation mechanical AVR (i.e., ball in-Cage) or any mechanical MVR should have a INR therapeutic range of 2.5 to 3.5 (target INR of 3). Lilia GH, et al. Chest 2012, 141:7S-47S Kirti RA, et al. [facility] 2017, 70: 252-289 Performed By: #### P TGEN #### [facility] CLIA [id number] [address] [place] [address] [place] PT Coag (PPP) [Time] 10.0 s Normal 9.7-13.0 [facility] Comment on above: Order Comment: Speci men Type: BLOOD SPECIMEN Ordering Facility: [facility] Address: [address] [place] [address] Result Comment: Froz en Plasma Aliquot Performed By: #### P TGEN #### [facility]LL[facility] CLIA [id number] [address] [place] [address] [place] CRP [facility] CRP [Mass/Vol] mg/L Normal <0.9 [facility] Comment on above: Order Comment: Festus lind Type: BLOOD SPECIMEN Ordering Facility: [facility] Address: [address] [place] [address] Performed By: #### P TGEN #### [facility] CLIA [id number] [address] [place] [address] [place] Cardiolipin IgA Ser IA-aCnco n 07-12-2024 Cardiolipin IgA IA Qn (S) <9.0 Normal <12.0 [facility] Comment on above: Order Comment: Festus lind Type: BLOOD SPECIMEN Ordering Facility: [facility] Address: [address] [place] [address] Result Comment: <12 APL Negative 12-20 APL Indeterminate >20 APL Positive The following results were obtained with the [employer] Institute[employer] Lite JUAN RAMON IgA III AUBREE. Cardiolipin IgA values obtained with the different manufacturers' assay methods may not be used interchangeably. The magnitude of the reported IgA levels cannot be correlated to an endpoint titer. Performed By: #### P TGEN #### [facility] CLIA [id number] [address] [place] [address] [place] D dimer FEU PPP-mCncon 07-12 Fibrin D-dimer FEU (PPP) [Mass/Vol] 240 ng/mL FEU Normal <500 [facility] Comment on above: Order Comment: Festus lind Type: BLOOD SPECIMEN Ordering Facility: [facility] Address: [address] [place] [address] Performed By: #### P TGEN #### [facility] CLIA [id number] [address] [place] [address] [place] D-DIMERon 07-12-2024 Fibrin D-dimer FEU (PPP) [Mass/Vol] 240 NINF [facility] Fibrin D-dimer FEU (PPP) [Ma ss/Vol]on 07-12-2024 Interpretation and review of laboratory results Normal [facility] 500 ng/mL FEU is the D Dimer cutoff to exclude DVT (deep vein thrombosis) and PE (pulmonary embolism) in patients with a low pre test probability. Supplemental Comment: In patients over 50 years with a low pre test probability for DVT and/or PE, an age adjusted D dimer cutoff can be calculated as [age x 10] ng/mL FEU. For example, a patient of 88 years would have an age adjusted D dimer cutoff of 880 ng/mL FEU. For patients with a suspected DVT, a D dimer level below 500 ng/mL FEU has a negative predictive value of >98.9%, a sensitivity of >96.9% and a specificity of >35.7%. For patients with a suspected PE, a D dimer level below 500 ng/mL FEU has a negative predictive value of >98.5%, and a sensitivity of >96.5% and a specificity of >38.8%. Reference: Roberta M, et al. VITA 2014 311:1117 and Eleazar Saucedo et al. Chel Int Med 2016 165:253. [facility] HYPERCOAG PANELon 07-12-2024 Activated protein C resistance Coag (PPP) [Time ratio] 2.36 Ratio Normal >1.96 [facility] Comment on above: Order Comment: Festus lind Type: BLOOD SPECIMEN Ordering Facility: [facility] Address: [address] [place] [address] Performed By: #### H COAG #### [facility] CLIA [id number] [address] [place] [address] [place] Antithrombin actual/normal Chromogenic method (PPP) [Rel catalytic activity/Vol] 131 % Normal 84-138 [facility] Comment on above: Order Comment: Festus lind Type: BLOOD SPECIMEN Ordering Facility: [facility] Address: [address] [place] [address] Performed By: #### H COAG #### [facility] CLIA [id number] [address] [place] [address] [place] aPTT Coag (Bld) [Time] 27.0 s Normal 24.0-35.1 [facility] Comment on above: Order Comment: Festus lind Type: BLOOD SPECIMEN Ordering Facility: [facility] Address: [address] [place], [place] [address] Performed By: #### H COAG #### [facility] CLIA [id number] [address] [place] [address] [place] aPTT W excess hexagonal phase phospholipid Coag (PPP) [Time] 50.6 seconds Normal 34.0-51.8 [facility] Comment on above: Order Comment: Speci men Type: BLOOD SPECIMEN Ordering Facility: [facility] Address: [address] [place] [address] Performed By: #### H COAG #### [facility] CLIA [id number] [address] [place] [address] [place] Coagulation factor VIII activity actual/normal Coag (PPP) [Relative time] 144 % Normal 50-173 [facility] Comment on above: Order Comment: Speci men Type: BLOOD SPECIMEN Ordering Facility: [facility] Address: [address] [place] [address] Performed By: #### H COAG #### [facility] CLIA [id number] [address] [place] [address] [place] Coagulation factor X activated act Coag Qn (PPP) <0.10 Normal <0.10 [facility] Comment on above: Order Comment: Speci men Type: BLOOD SPECIMEN Ordering Facility: [facility] Address: [address] [place] [address] Result Comment: This test was developed, and its performance characteristics determined by the [facility] Department of Pathology and Laboratory Medicine. It has not been cleared or approved by the FDA. The [facility] Department of Pathology and Laboratory Medicine is regulated under CLIA as qualified to perform high-complexity testing. This test is used for clinical purposes. It should not be regarded as investigational or for research. Performed By: #### H COAG #### [facility] CLIA [id number] [address] [place] [address] [place] Delta dRVVT Coag (PPP) [Time diff] 4.6 delta seconds Normal <7.1 [facility] Comment on above: Order Comment: Speci men Type: BLOOD SPECIMEN Ordering Facility: [facility] Address: [address] [place] [address] Performed By: #### H COAG #### [facility] CLIA [id number] [address] [place] [address] [place] dRVVT W excess hexagonal phase phospholipid actual/normal Coag (PPP) [Relative time] 46.0 seconds Normal 34.2-47.9 [facility] Comment on above: Order Comment: Speci men Type: BLOOD SPECIMEN Ordering Facility: [facility] Address: [address] [place] [address] Performed By: #### H COAG #### [facility] CLIA [id number] [address] [place] [address] [place] Protein C actual/normal Coag (PPP) [Relative time] 161 % High 76-147 [facility] Comment on above: Order Comment: Speci men Type: BLOOD SPECIMEN Ordering Facility: [facility] Address: [address] [place] [address] Performed By: #### H COAG #### [facility] CLIA [id number] [address] [place] [address] [place] Protein S actual/normal Coag (PPP) [Relative time] 90 % Normal 59-152 [facility] Comment on above: Order Comment: Speci men Type: BLOOD SPECIMEN Ordering Facility: [facility] Address: [address] [place] [address] Performed By: #### H COAG #### [facility] CLIA [id number] [address] [place] [address] [place] Thrombin time Coag (PPP) [Time] <16.8 Normal <18.6 [facility] Comment on above: Order Comment: Speci men Type: BLOOD SPECIMEN Ordering Facility: [facility] Address: [address] [place] [address] Performed By: #### H COAG #### [facility] CLIA [id number] [address] [place] [address] [id number] [facility] PROTHROMBIN GENE PCRon 07-12 PROTHROMBIN GENE MUTATION Normal [facility] Comment on above: Order Comment: Speci men Type: BLOOD SPECIMEN Ordering Facility: [facility] Address: [address] [place] [address] Result Comment: Prot hrombin Gene Mutation Laboratory Accession Number: [id number] Result: NORMAL Interpretation: The DNA sample is negative for the c.*97G>A variant (legacy name 36093H>A) in the 3' untranslated region of the Factor II (F2) gene. This result is not associated with an increased risk of thromboembolic disease. Thromboembolic disease is a multifactorial disorder and other causes are not excluded by this result. Methodology: Isolated Genomic DNA from the patient's blood specimen is evaluated for the c*97G>A ([id number]) variant of the F2 gene [RefSeq [id number];GRCh38/hg38] by multiplex polymerase chain reaction (PCR) followed by melting curve analysis. Limitations: This assay is designed to detect the c.*97G>A (42441V>A) variant in the F2 gene. Uncommon variants or single nucleotide polymorphisms may affect binding of probes and may rarely result in false negative, false positive or indeterminate results. This assay does not detect other disease-associated rare variants in F2 or other causes of thromboembolic disease. Disclaimer: This test was developed and its performance characteristics determined by [facility]'s Pathology and Laboratory Medicine Department. It has not been cleared or approved by the FDA. [facility]'s Pathology and Laboratory Medicine Department is regulated under CLIA as certified to perform high-complexity testing. This test is used for clinical purposes. It should not be regarded as investigational or for research. Testing and interpretation performed at [facility], [address] [place] [address]. CLIA Number: [id number] References: 1) Inheritied Thrombophilias in . ACOG Practice Bulletin. No. 197. [place] [employer]. Obsete Gynecol 2018;132:e18-34. 2) Kena SR, Hubert FR, Leonardo PH, and Mirella MCKAY. A common genetic variation in the 3'-untranslated region of the prothrombin gene is associated with elevated plasma prothrombin levels and an increase in venous thrombosis. Blood 88:3698-703, 1995. 3) Kaila I, Jovana V, Edith C, Rose Mccormack. Prothrombin 10498N>T: 16 new cases, association with the 13131M>G polymorphism, and literature review. J Thromb Haemost. 2009;9:1585-7. As reviewed by Florin Taylor, PhD, FACMG Performed By: #### P TGEN #### [facility] CLIA [id number] [address] [place] [address] [place] CBC W Auto Differential pane l (Bld)on 07-11-2024 Basophils (Bld) [#/Vol] 10*3/uL Normal <0.11 [facility] Comment on above: Order Comment: Speci men Type: BLOOD SPECIMEN Ordering Facility: [facility] Address: [address] [place] [address] Performed By: #### 2 1198-7 #### [facility] CLIA [id number] [address] [place] [address] [place] Basophils/100 WBC (Bld) 0.3 % Normal [facility] Comment on above: Order Comment: Speci men Type: BLOOD SPECIMEN Ordering Facility: [facility] Address: [address] [place] [address] Performed By: #### 2 1198-7 #### [facility] CLIA [id number] [address] [place] [address] [place] Differential cell count method Nom (Bld) Auto Normal [facility] Comment on above: Order Comment: Speci men Type: BLOOD SPECIMEN Ordering Facility: [facility] Address: [address] [place] [address] Performed By: #### 2 1198-7 #### [facility] CLIA [id number] [address] [place] [address] [place] Eosinophils (Bld) [#/Vol] 10*3/uL Normal <0.46 [facility] Comment on above: Order Comment: Speci men Type: BLOOD SPECIMEN Ordering Facility: [facility] Address: [address] [place] [address] Performed By: #### 2 1198-7 #### [facility] CLIA [id number] [address] [place] [address] [place] Eosinophils/100 WBC (Bld) 0.3 % Normal [facility] Comment on above: Order Comment: Speci men Type: BLOOD SPECIMEN Ordering Facility: [facility] Address: [address] [place] [address] Performed By: #### 2 1198-7 #### [facility] CLIA [id number] [address] [place] [address] [place] Erythrocyte distribution width (RBC) [Ratio] 12.4 % Normal 11.5-15.0 [facility] Comment on above: Order Comment: Speci men Type: BLOOD SPECIMEN Ordering Facility: [facility] Address: [address] [place] [address] Performed By: #### 2 1198-7 #### [facility] CLIA [id number] [address] [place] [address] [place] Hematocrit (Bld) [Volume fraction] 40.2 % Normal 36.0-46.0 [facility] Comment on above: Order Comment: Speci men Type: BLOOD SPECIMEN Ordering Facility: [facility] Address: [address] [place] [address] Performed By: #### 2 1198-7 #### [facility] CLIA [id number] [address] [place] [address] [place] Hemoglobin (Bld) [Mass/Vol] 13.3 g/dL Normal 11.5-15.5 [facility] Comment on above: Order Comment: Speci men Type: BLOOD SPECIMEN Ordering Facility: [facility] Address: [address] [place] [address] Performed By: #### 2 1198-7 #### [facility] CLIA [id number] [address] [place] [address] [place] Immature granulocytes (Bld) [#/Vol] 0.03 10*3/uL Normal <0.10 [facility] Comment on above: Order Comment: Speci men Type: BLOOD SPECIMEN Ordering Facility: [facility] Address: [address] [place] [address] Performed By: #### 2 1198-7 #### [facility] CLIA [id number] [address] [place] [address] [place] Immature granulocytes/100 WBC (Bld) 0.5 % Normal [facility] Comment on above: Order Comment: Speci men Type: BLOOD SPECIMEN Ordering Facility: [facility] Address: [address] [place] [address] Performed By: #### 2 1198-7 #### [facility] CLIA [id number] [address] [place] [address] [place] Lymphocytes (Bld) [#/Vol] 1.51 10*3/uL Normal 1.00-4.00 [facility] Comment on above: Order Comment: Speci men Type: BLOOD SPECIMEN Ordering Facility: [facility] Address: [address] [place] [address] Performed By: #### 2 1198-7 #### [facility] CLIA [id number] [address] [place] [address] [place] Lymphocytes/100 WBC (Bld) 25.7 % Normal [facility] Comment on above: Order Comment: Speci men Type: BLOOD SPECIMEN Ordering Facility: [facility] Address: [address] [place] [address] Performed By: #### 2 1198-7 #### [facility] CLIA [id number] [address] [place] [address] [place] MCH (RBC) [Entitic mass] 30.4 pg Normal 26.0-34.0 [facility] Comment on above: Order Comment: Speci men Type: BLOOD SPECIMEN Ordering Facility: [facility] Address: [address] [place] [address] Performed By: #### 2 1198-7 #### [facility] CLIA [id number] [address] [place] [address] [place] MCHC (RBC) [Mass/Vol] 33.1 g/dL Normal 30.5-36.0 [facility] Comment on above: Order Comment: Speci men Type: BLOOD SPECIMEN Ordering Facility: [facility] Address: [address] [place] [address] Performed By: #### 2 1198-7 #### [facility] CLIA [id number] [address] [place] [address] [place] MCV (RBC) [Entitic vol] 91.8 fL Normal 80.0-100.0 [facility] Comment on above: Order Comment: Speci men Type: BLOOD SPECIMEN Ordering Facility: [facility] Address: [address] [place] [address] Performed By: #### 2 1198-7 #### [facility] CLIA [id number] [address] [place] [address] [place] Monocytes (Bld) [#/Vol] 0.36 10*3/uL Normal <0.87 [facility] Comment on above: Order Comment: Speci men Type: BLOOD SPECIMEN Ordering Facility: [facility] Address: [address] [place] [address] Performed By: #### 2 1198-7 #### [facility] CLIA [id number] [address] [place] [address] [place] Monocytes/100 WBC (Bld) 6.1 % Normal [facility] Comment on above: Order Comment: Speci men Type: BLOOD SPECIMEN Ordering Facility: [facility] Address: [address] [place] [address] Performed By: #### 2 1198-7 #### [facility] CLIA [id number] [address] [place] [address] [place] Neutrophils (Bld) [#/Vol] 3.93 10*3/uL Normal 1.45-7.50 [facility] Comment on above: Order Comment: Speci men Type: BLOOD SPECIMEN Ordering Facility: [facility] Address: [address] [place] [address] Performed By: #### 2 1198-7 #### [facility] CLIA [id number] [address] [place] [address] [place] Neutrophils/100 WBC (Bld) 67.1 % Normal [facility] Comment on above: Order Comment: Speci men Type: BLOOD SPECIMEN Ordering Facility: [facility] Address: [address] [place] [address] Performed By: #### 2 1198-7 #### [facility] CLIA [id number] [address] [place] [address] [place] Nucleated RBC (Bld) [#/Vol] 10*3/uL Normal <0.01 [facility] Comment on above: Order Comment: Speci men Type: BLOOD SPECIMEN Ordering Facility: [facility] Address: [address] [place] [address] Performed By: #### 2 1198-7 #### [facility] CLIA [id number] [address] [place] [address] [place] Nucleated RBC/100 WBC (Bld) [Ratio] 0.0 /100 WBC Normal [facility] Comment on above: Order Comment: Speci men Type: BLOOD SPECIMEN Ordering Facility: [facility] Address: [address] [place] [address] Performed By: #### 2 1198-7 #### [facility] CLIA [id number] [address] [place] [address] [place] Platelet mean volume (Bld) [Entitic vol] 8.7 fL Low 9.0-12.7 [facility] Comment on above: Order Comment: Speci men Type: BLOOD SPECIMEN Ordering Facility: [facility] Address: [address] [place] [address] Performed By: #### 2 1198-7 #### [facility] CLIA [id number] [address] [place] [address] [place] Platelets (Bld) [#/Vol] 274 10*3/uL Normal 150-400 [facility] Comment on above: Order Comment: Speci men Type: BLOOD SPECIMEN Ordering Facility: [facility] Address: [address] [place] [address] Performed By: #### 2 1198-7 #### [facility] CLIA [id number] [address] [place] [address] [place] RBC (Bld) [#/Vol] 4.38 10*6/uL Normal 3.90-5.[address] [facility] Comment on above: Order Comment: Speci men Type: BLOOD SPECIMEN Ordering Facility: [facility] Address: [address] [place] [address] Performed By: #### 2 1198-7 #### [facility] CLIA [id number] [address] [place] [address] [place] WBC (Bld) [#/Vol] 5.87 10*3/uL Normal 3.70-11.[address] [facility] Comment on above: Order Comment: Speci men Type: BLOOD SPECIMEN Ordering Facility: [facility] Address: [address] [place] [address] Performed By: #### 2 1198-7 #### [facility] CLIA [id number] [address] [place] [address] [place] Comprehensive metabolic 2000 panelon 07-11-2024 Albumin [Mass/Vol] 4.4 g/dL Normal 3.9-4.9 [facility] Comment on above: Order Comment: Speci men Type: BLOOD SPECIMEN Ordering Facility: [facility] Address: [address] [id number] Performed By: #### 2 4323-8 #### [facility] CLIA [id number] [address] [id number] [place] ALP [Catalytic activity/Vol] 53 U/L Normal 34-123 [facility] Comment on above: Order Comment: Speci men Type: BLOOD SPECIMEN Ordering Facility: [facility] Address: [address] [id number] Performed By: #### 2 4323-8 #### [facility] CLIA [id number] [address] [place] [address] [place] ALT [Catalytic activity/Vol] 9 U/L Normal 7-38 [facility] Comment on above: Order Comment: Speci men Type: BLOOD SPECIMEN Ordering Facility: [facility] Address: [address] [place] [address] Performed By: #### 2 4323-8 #### [facility] CLIA [id number] [address] [place] [address] [place] Anion gap [Moles/Vol] 13 mmol/L Normal 8-15 [facility] Comment on above: Order Comment: Speci men Type: BLOOD SPECIMEN Ordering Facility: [facility] Address: [address] [id number] Performed By: #### 2 4323-8 #### [facility] CLIA [id number] [address] [address] [place] AST [Catalytic activity/Vol] 13 U/L Normal 13-35 [facility] Comment on above: Order Comment: Speci men Type: BLOOD SPECIMEN Ordering Facility: [facility] Address: [address] [phone] Performed By: #### 2 4323-8 #### [facility] CLIA [id number] [address] [place] [address] [place] Bilirubin [Mass/Vol] 1.3 mg/dL Normal 0.2-1.3 [facility] Comment on above: Order Comment: Speci men Type: BLOOD SPECIMEN Ordering Facility: [facility] Address: [address] [place] [address] Performed By: #### 2 4323-8 #### [facility] CLIA [id number] [address] [place] [address] [place] Calcium [Mass/Vol] 9.3 mg/dL Normal 8.5-10.2 [facility] Comment on above: Order Comment: Speci men Type: BLOOD SPECIMEN Ordering Facility: [facility] Address: [address] [place] [address] Performed By: #### 2 4323-8 #### [facility] CLIA [id number] [address] [place] [address] [place] Chloride [Moles/Vol] 106 mmol/L Normal 98-107 [facility] Comment on above: Order Comment: Speci men Type: BLOOD SPECIMEN Ordering Facility: [facility] Address: [address] [place] [address] Performed By: #### 2 4323-8 #### [facility] CLIA [id number] [address] [place] [address] [place] CO2 [Moles/Vol] 24 mmol/L Normal 22-30 [facility] Comment on above: Order Comment: Speci men Type: BLOOD SPECIMEN Ordering Facility: [facility] Address: [address] [place], [place] [id number] Performed By: #### 2 4323-8 #### [facility] CLIA [id number] [address] [place] [address] [place] Creatinine [Mass/Vol] 0.58 mg/dL Normal 0.58-0.96 [facility] Comment on above: Order Comment: Speci men Type: BLOOD SPECIMEN Ordering Facility: [facility] Address: [address] [place] [address] Performed By: #### 2 4323-8 #### [facility] CLIA [id number] [address] [place] [address] [place] Creatinine and Glomerular filtration rate.predicted panel (S/P/Bld) 126 mL/min/1.73m??? Normal >=60 [facility] Comment on above: Order Comment: Festus lind Type: BLOOD SPECIMEN Ordering Facility: [facility] Address: [address] [place] [address] Result Comment: Kriss mated Glomerular Filtration Rate (eGFR) is calculated using the 2020 CKD-EPI creatinine equation. This equation utilizes serum creatinine, sex, and age as parameters. The creatinine assay has traceable calibration to isotope dilution-mass spectrometry. Refer to KDIGO guidelines for clinical interpretation. In patients with unstable renal function, e.g. those with acute kidney injury, the eGFR may not accurately reflect actual GFR. Performed By: #### 2 4323-8 #### [facility] CLIA [id number] [address] [place] [address] [place] Glucose [Mass/Vol] 88 mg/dL Normal 74-99 [facility] Comment on above: Order Comment: Festus lind Type: BLOOD SPECIMEN Ordering Facility: [facility] Address: [address] [place] [address] Result Comment: The [place] Diabetes Association (ADA) provides guidance for cutoff values for fasting glucose and random glucose. The ADA defines fasting as no caloric intake for at least 8 hours. Fasting plasma glucose results between 100 to 125 mg/dL indicate increased risk for diabetes (prediabetes). Fasting plasma glucose results greater than or equal to 126 mg/dL meet the criteria for diagnosis of diabetes. In the absence of unequivocal hyperglycemia, results should be confirmed by repeat testing. In a patient with classic symptoms of hyperglycemia or hyperglycemic crisis, random plasma glucose results greater than or equal to 200 mg/dL meet the criteria for diagnosis of diabetes. Reference: Standards of Medical Care in Diabetes 2016, [place] Diabetes Association. Diabetes Care. 2016.39(Suppl 1). Performed By: #### 2 4323-8 #### [facility] CLIA [id number] [address] [place] [address] [place] Potassium [Moles/Vol] 3.7 mmol/L Normal 3.7-5.1 [facility] Comment on above: Order Comment: Speci men Type: BLOOD SPECIMEN Ordering Facility: [facility] Address: [address] [place] [address] Performed By: #### 2 4323-8 #### [facility] CLIA [id number] [address] [place] [address] [place] Protein [Mass/Vol] 6.9 g/dL Normal 6.3-8.0 [facility] Comment on above: Order Comment: Speci men Type: BLOOD SPECIMEN Ordering Facility: [facility] Address: [address] [place] [address] Performed By: #### 2 4323-8 #### [facility] CLIA [id number] [address] [place] [address] [place] Sodium [Moles/Vol] 143 mmol/L Normal 136-144 [facility] Comment on above: Order Comment: Speci men Type: BLOOD SPECIMEN Ordering Facility: [facility] Address: [address] [place] [address] Performed By: #### 2 4323-8 #### [facility] CLIA [id number] [address] [place] [address] [place] Urea nitrogen [Mass/Vol] 8 mg/dL Normal 7-21 [facility] Comment on above: Order Comment: Speci men Type: BLOOD SPECIMEN Ordering Facility: [facility] Address: [address] [place] [address] Performed By: #### 2 4323-8 #### [facility] CLIA [id number] [address] [place] [address] [place] HAV IgM Ser Qlon 07-11-2024 HAV IgM Ql (S) Negative Normal Negative [facility] Comment on above: Order Comment: Speci men Type: BLOOD SPECIMEN Ordering Facility: [facility] Address: [address] [place] [address] Result Comment: No e vidence of recent infection with Hepatitis A virus. Performed By: #### 2 1198-7 #### [facility] CLIA [id number] [address] [place] [address] [place] HBV core Ab Ser Qlon 024 HBV core Ab Ql (S) Negative Normal Negative [facility] Comment on above: Order Comment: Speci men Type: BLOOD SPECIMEN Ordering Facility: [facility] Address: [address] [place] [address] Result Comment: No e vidence of current or past infection with Hepatitis B virus. Should recent infection be suspected, repeat testing may be considered 3-4 weeks after this draw. Performed By: #### 2 1198-7 #### [facility] CLIA [id number] [address] [place] [address] [place] HBV core IgM Ser Qlon 2023 HBV core IgM Ql (S) Negative Normal Negative [facility] Comment on above: Order Comment: Speci diogo Type: BLOOD SPECIMEN Ordering Facility: [facility] Address: [address] [place] [address] Result Comment: No e vidence of recent infection with Hepatitis B virus. Should recent infection be suspected, repeat testing may be considered 3-4 weeks after this draw. Performed By: #### 2 1198-7 #### [facility] CLIA [id number] [address] [place] [address] [place] HBV surface Ab Ql (S)on 06-14 HBV surface Ab Qn (S) <8.00 Normal [facility] Comment on above: Order Comment: Speci men Type: BLOOD SPECIMEN Ordering Facility: [facility] Address: [address] [place] [address] Result Comment: <8 m IU/mL: No serological evidence of immunity to Hepatitis B Virus. >/= 8 to <12 mIU/mL: No serological evidence of immunity to Hepatitis B Virus. >/= 12 mIU/mL: Consistent with serological evidence of immunity to Hepatitis B Virus. Performed By: #### 2 1198-7 #### [facility] CLIA [id number] [address] [place] [address] [place] HBV surface Ab Ser Qlon 06-14 HBV surface Ab Ql (S) Negative Normal [facility] Comment on above: Order Comment: Speci men Type: BLOOD SPECIMEN Ordering Facility: [facility] Address: [address] [place] [address] Result Comment: No s erological evidence of immunity to Hepatitis B Virus. Performed By: #### 2 1198-7 #### [facility] CLIA [id number] [address] [place] [address] [place] HBV surface Ag Ser Qlon 06-14 HBV surface Ag Ql (S) Negative Normal Negative [facility] Comment on above: Order Comment: Speci [facility] Type: BLOOD SPECIMEN Ordering Facility: [facility] Address: [address] [place] [address] Performed By: #### 2 1198-7 #### [facility] CLIA [id number] [address] [place] [address] [place] HCV Ab Ser Qlon 07-11-2024 HCV Ab Ql (S) Negative Normal Negative [facility] Comment on above: Order Comment: Speci men Type: BLOOD SPECIMENOrdering Facility: [facility] Address: [address] [place] [address] Result Comment: The result suggests no evidence of active infection with Hepatitis C virus. Should recent infection be suspected, repeat testing may be considered 4-6 weeks after this draw. Performed By: #### 1 6128-1 ####[facility] [id number] [place] [address] [place] HCV RNA SerPl SANJEEV+probe-aCnc on 07-11-2024 HCV RNA SANJEEV+probe Qn Not detected Normal HCV RNA not detected by PCR. [facility] Comment on above: Order Comment: Speci men Type: BLOOD SPECIMEN Ordering Facility: [facility] Address: [address] [place] [address] Performed By: #### 2 4323-8 #### [facility] CLIA [id number] [address] [place] [address] [place] HIV 1+2 Ab IA Qlon 4 HIV 1 and 2 Ab IA.rapid Nom (S/P/Bld) Normal [facility] Comment on above: Order Comment: Speci men Type: BLOOD SPECIMEN Ordering Facility: [facility] Address: [address] [place] [address] Result Comment: Test not indicated. Performed By: #### 2 1198-7 #### [facility] CLIA [id number] [address] [place] [address] [place] HIV 1+2 Ab+HIV1 p24 Ag IA Ql Non-Reactive Normal Nonreactive [facility] Comment on above: Order Comment: Speci men Type: BLOOD SPECIMEN Ordering Facility: [facility] Address: [address] [place] [address] Performed By: #### 2 1198-7 #### [facility] CLIA [id number] [address] [place] [address] [place] HIV immunoassay testing algorithm interpretation (S/P/Bld) [Interp] Normal [facility] Comment on above: Order Comment: Speci men Type: BLOOD SPECIMEN Ordering Facility: [facility] Address: [address] [place] [address] Result Comment: No e vidence of HIV-1 or HIV-2 infection. Should recent infection be suspected, repeat testing may be considered 2-3 weeks after this draw. [place] Rev. Code 3701.243(E): This information has been disclosed to you from confidential records protected from disclosure by state law. ???You shall make no further disclosure of this information without the specific, written, and informed release of the individual to whom it pertains or as otherwise permitted by state law. A general authorization for the release of medical or other information is not sufficient for the purpose of the release of HIV test results or diagnoses. Performed By: #### 2 1198-7 #### [facility] CLIA [id number] [address] [place] [address] [place] HbA1c (Bld)on 07-11-2024 Average glucose Estimated from glycated hemoglobin (Bld) [Mass/Vol] 88 mg/dL Normal [facility] Comment on above: Order Comment: Speci men Type: BLOOD SPECIMEN Ordering Facility: [facility] Address: [address] [place] [address] Result Comment: eAG: (Estimated average glucose) is a calculated value from HgbA1c and is insurance sales representative of the average blood glucose level in the last 2-3 month period. Performed By: #### 2 4323-8 #### [facility] CLIA [id number] [address] [place] [address] [place] [facility] HbA1c (Bld) [Mass fraction] 4.7 % Normal 4.3-5.6 [facility] Comment on above: Order Comment: Speci men Type: BLOOD SPECIMEN Ordering Facility: [facility] Address: [address] [place] [address] Result Comment: [place] Diabetes Association guidelines indicate that patients with HgbA1c in the range 5.7-6.4% are at increased risk for development of diabetes, and intervention by lifestyle modification may be beneficial. HgbA1c greater or equal to 6.5% is considered diagnostic of diabetes. Performed By: #### 2 4323-8 #### [facility] CLIA [id number] [address] [place] [address] [place] NICOTINE/COTININEon 07-11-20 24 Cotinine [Mass/Vol] <2 Normal <[address] [facility] Comment on above: Order Comment: Speci men Type: BLOOD SPECIMENOrdering Facility: [facility] Address: [address] [place] [address] Result Comment: Acti ve tobacco product user: Nicotine concentration: 30 - 50 ng/mL Cotinine concentration: 200 - 800 ng/mL Passive exposure to tobacco: Nicotine concentration: < 2 ng/mL Cotinine concentration: < 8 ng/mL Unexposed non-tobacco user or abstinent user for > 2 weeks: Nicotine concentration: < 2 ng/mL Cotinine concentration: < 2 ng/mL This test was developed, and its performance characteristics determined by the [facility] Department of Pathology and Laboratory Medicine. It has not been cleared or approved by the FDA. The [facility] Department of Pathology and Laboratory Medicine is regulated under CLIA as qualified to perform high-complexity testing. This test is used for clinical purposes. It should not be regarded as investigational or for research. Performed By: #### N ICOT ####[facility] [id number] [place] [address] [place] Nicotine [Mass/Vol] <2 Normal <[address] [facility] Comment on above: Order Comment: Festus lind Type: BLOOD SPECIMENOrdering Facility: [facility] Address: [address] [place] [address] Performed By: #### N ICOT ####[facility] [id number] [place] [address] [place] PT panel Coag (PPP)on 2023 INR Coag (PPP) [Relative time] 1.0 {INR} Normal 0.9-1.3 [facility] Comment on above: Order Comment: Festus lind Type: BLOOD SPECIMEN Ordering Facility: [facility] Address: [address] [place] [address] Result Comment: Tara min K Antagonist (VKA) Therapeutic Range: INR 2 to 3 (Target INR of 2.5) Note: For patients treated with VKA drugs, such as warfarin, the [place] [employer] 2012 Guideline recommends a therapeutic INR range of 2 to 3 (target INR of 2.5). This recommendation includes high-risk patients with antiphospholipid syndrome with previous arterial or venous thromboembolism, current-generation mechanical or bioprosthetic aortic heart valve replacement. Note: Patients with mechanical aortic valve replacement and additional risk factors for thromboembolic events (atrial fibrillation, previous thromboembolism, LV dysfunction, hypercoagulable conditions) or an older generation mechanical AVR (i.e., ball in-Cage) or any mechanical MVR should have a INR therapeutic range of 2.5 to 3.5 (target INR of 3). Lilia BRAVO, et al. Chest 2012, 141:7S-47S Kirti BLACK, et al. [facility] 2017, 70: 252-289 Performed By: #### T SPN #### [facility] [place] [id number] [address] [place] [address] [place] PT Coag (PPP) [Time] 10.2 s Normal 9.7-13.0 [facility] Comment on above: Order Comment: Speci men Type: BLOOD SPECIMEN Ordering Facility: [facility] Address: [address] [place] [address] Performed By: #### T SPN #### [facility] [id number] [address] [place] [address] [place] aPTT PPPon 07-11-2024 aPTT Coag (PPP) [Time] 27.8 s Normal 23.0-32.4 [facility] Comment on above: Order Comment: Speci men Type: BLOOD SPECIMEN Ordering Facility: [facility] Address: [address] [place] [address] Result Comment: Chris en Plasma Aliquot Performed By: #### T SPN #### [facility] [id number] [address] [place] [address] [place] US Pelvison 06-30-2024 [facility] Radiology Study observation (narrative) [facility] CNPCarol 06-29-2024 HODA Telephone ([place]) LEELEE [id number]) 1995 F Date Time Provider Department 06/29/24 RILEY KENT During your visit today, we recorded the following information about you: Davin Maria Fernanda 06/29/2024 8:11 AM Signed Patient is being referred to Hematology DX: History of Blood Clots Insurance: [employer] Referred by: Darlin Ling APRN. HOME [employer]IS[employer] Please review and advise Briseida Hui LPN 06/29/2024 9:15 AM Signed We would need records pertaining to H/O blood clots. There are no records that mention this in [facility]. The only place that I can find this was documented in was an HANDP from [facility] 10/01/2023: Acute deep vein thrombosis (DVT) of popliteal vein of right lower extremity (HCC) Assessment: Hx of DVT x 2 - Upper extremity in 2020, LE in 2021. No hypercoagulable work up, but does report mom having high factor VIII. This was not mentioned in the previous surgical HANDP from Dr. Nj in 05/2023. I cannot find record of this in [facility] system either. Please provide records so we can schedule patient appropriately. ALEXANDER Fitzpatrick [place] 06/30/2024 12:14 PM Signed Patient ended up wanting to go to [place]. Patient scheduled Allergies As of Date: 06/29/2024 Noted Allergy Reaction TREE NUTS 07/02/2022 2 - Rash MORPHINE 03/23/2017 14 - Other: See Comments Comments: Tightness in chest Date Reviewed: 06/28/2024 Reviewed by: Buck Szymanski APRN.YADI - Fully Assessed Reason for Visit: New Patient [172] Prescriptions as of 07/19/2024 - atomoxetine (STRATTERA) 10 mg capsule Take 1 capsule by mouth once daily. - dulaglutide (TRULICITY) 3 mg/0.5 mL pen injector INJECT 1 PEN SUBCUTANEOUSLY EVERY WEEK - topiramate (TOPAMAX) 25 mg tablet Take 4 tablets by mouth once daily. Problem List As Of Date 06/29/2024 Noted Resolved Class 2 obesity without serious comorbidity wit*03/09/2018 12/07/2023 Vitamin D deficiency [E55.9] 12/16/2018 SAMAN (generalized anxiety disorder) [F41.1] 12/16/2018 History of gastroesophageal reflux (GERD) [Z87.*12/16/2018 Allergic rhinitis, unspecified [J30.9] 12/16/2018 Ex-smoker [Z87.891] 12/16/2018 Psoriasis [L40.9] 12/16/2018 Encounter for insertion of mirena IUD [Z30.430] 12/16/2018 12/07/2023 Acute deep vein thrombosis (DVT) of popliteal v*02/202212/07/2023 IUD (intrauterine device) in place [Z97.5] 11/06/2022 12/07/2023 Polycystic ovary syndrome [E28.2] 12/17/2022 Obesity, Class II, BMI 35-39.9 [E66.812] 07/02/2023 07/06/2023 Obesity, Class II, BMI 35-39.9 [E66.812] 07/06/2023 Liver hemangioma [D18.03] 09/16/2023 Vapes nicotine containing substance [Z72.0] 10/01/2023 Acute deep vein thrombosis (DVT) of right upper*10/01/2023 Encounter Status:Closed by MARIA FERNANDA BEVERLY on 07/19/24 [facility] CNOVponcho 06-28-2024 CNOV Office Visit ([facility] ) LEELEE ZAMORA ([id number]) 1995 F Date Time Provider Department 06/28/24 2:30 PM BUCK SZYMANSKI [facility] During your visit today, we recorded the following information about you: Last Period 06/27/24 Quinton Caldera MA 06/28/2024 2:27 PM Signed Last mammogram on: n/a Results: Is the patient active on MyChart Yes Electronically Signed By: Quinton Caldera MA In Department: [facility] REVIEW OF PATIENT HISTORY: OB History T1 L1 SAB0 IAB0 Ectopic0 Multiple0 Live Births1 Comment: Menarche: 11; Age at 1st : 26; Premenopausal LMP- 11/19/23 FAMILY HISTORY Problem Relation Age of Onset Heart disease Mother arythmia Diabetes Father Hypertension Father Thyroid Cancer Paternal Aunt 52 Cervical Cancer Paternal Aunt Uterine Cancer Paternal Aunt Breast Cancer Paternal Aunt 20 - 29 Ovarian cancer Paternal Aunt 20 - 29 Thyroid Cancer Paternal Aunt 19 resolved Breast Cancer Paternal Aunt 20 - 29 Kidney Disease Maternal Grandmother other (lupus) Maternal Grandmother Stroke Maternal Grandmother Heart Attack Maternal Grandmother Blood Clots Maternal Grandmother Colon Cancer Paternal Grandmother late 50's Coronary Artery Disease Paternal Grandmother 40's Diabetes Paternal Grandmother Hypertension Paternal Grandmother Diabetes Paternal Grandfather Hypertension Paternal Grandfather Alzheimer's Disease No Family History Hyperlipidemia No Family History Thyroid No Family History Seizures No Family History PAST MEDICAL HISTORY Diagnosis Date Acute deep vein thrombosis (DVT) of popliteal vein of right lower extremity (HCC) 02/2022 Allergic rhinitis, unspecified 12/16/2018 Bowel obstruction (HCC) 2022 Encounter for insertion of Mirena IUD 12/24/2021 Ex-smoker 12/16/2018 Started at age 19 up to 12-1 PPD, quit 05/2018 SAMAN (generalized anxiety disorder) 12/16/2018 [facility]. History of chlamydia 16 YO History of gastroesophageal reflux (GERD) 12/16/2018 History of morbid obesity PCOS (polycystic ovarian syndrome) Psoriasis 12/16/2018 Vitamin D deficiency 12/16/2018 PAST SURGICAL HISTORY Procedure Laterality Date CYST EXCISION 2017 right leg DANDC, DIAG AND/OR THERAPEUTIC 2020 EXTRACTION, ERUPTED TOOTH OR EXPOSED ROOT (ELEVATION AND/OR FORCEPS REMOVAL) 2013 LAPS SURG CHOLECYSTECTOMY W/CHOLANGIOGRAPHY 10/14/2023 Dr. Macdonald LOCAL REVISION OF ILESTOMY 02/24/2022 LYSIS OF ADHESIONS 10/14/2023 Dr. Macdonald PAST SURGICAL HISTORY OF multiplr vaginoplasty- RV fistual after FAVD AND 4th degree REMOVAL GALLBLADDER 10/14/2023 Social History Tobacco Use Smoking status: Some Days Types: Cigarettes Smokeless tobacco: Never Tobacco comments: Stopped smoking cigarettes, just uses vape now Vaping Use Vaping status: current everyday user Start date: 05/12/2023 Substances: Nicotine, Flavoring Devices: Disposable Substance Use Topics Alcohol use: Yes Alcohol/week: 1.0 standard drink of alcohol Types: 1 Cans of beer per week Comment: monthly Drug use: No Buck Szymanski APRN.CNP 06/28/2024 3:46 PM Signed MEDICAL BREAST PATIENT NAME: Leelee Zamora REASON FOR VISIT: Follow up clinical exam HISTORY of PRESENT ILLNESS: Leelee Zamora is a 29 year old year old premenopausal woman who presents to the [facility] [place] today for follow up clinical exam. She is an established patient who I last saw on 11/27/23 for evaluation of nipple discharge. Bilateral retro areolar ultrasound were completed at that time with negative findings. She was instructed to avoid all nipple stimulation. Today she reports she has experienced bouts of spontaneous nipple discharge. She also reports engorgement in upper outer area of breast. She has loss 25 lbs with weight loss management and exercise She denies any breast masses, pain or skin changes. She denies any new personal or family medical problems. She was unable to discuss genetic with her PA however she plans to follow up next month She reports for the past couple years she has noticed milky discharge from RIGHT nipple more than left. Discharge is expressed when she feels congestion in nipple and sometimes seem spontaneous. She last expressed nipple discharge 3 weeks ago. It was milky and from multiple ducts. Portions of this encounter note have been copied from my previous note dated, 11/27/23, which has been updated where appropriate and all reflect current medical decision making from today Has Patient had Genetic Testing? No Her vitamin D level was No results found for: VITD25. She takes no supplements. BMD: No PERSONAL BREAST HISTORY: Past breast history (prior to this encounter) is as follows: Breast biopsy: No Breast cysts: No Breast s (more content not included)... Normal [facility] CNOVon 06-27-2024 CNOV Office Visit (PLASMN ) LEELEE ZAMORA ([id number]) 1995 F Date Time Provider Department 06/27/24 2:00 PM DARLIN LING During your visit today, we recorded the following information about you: Temperature Pulse Blood pressure Weight 97.9 degrees 81/minute 114/67 89.7 kg Height 1.575 m Darlin Ling APRN.HOME VISITOR [employer] 06/27/2024 4:32 PM Signed Plastic Surgery Note CC: excess skin of abdomen and thighs HPI: Leelee is a 28 year old female with excess skin of abdomen and thighs after weight loss. Patient was seen last year with Dr. Mccullough present for visit. She was recommended to keep weight stable for at least 6 months. Her weight has now been stable since visit last year. Bariatric surgery yes [] No [x] Type:.....n/a.......... . Date:......n/a...... Pounds lost:......100......... . Over which period:......10 months.......... Actual weight:......198....... . How long weight was stable for:.....over 1 year...... Complaints:......excess skin of abdomen and thighs after weight loss, infections, trouble ADLs such wearing clothes and exercising, uses nystatin powder for over 1 year...... Nutritional status checked? yes [] No [x] Who:.....n/a........... Date:.....n/a........ Hemoglobin A1C (%) Date Value 06/23/2023 5.2 09/10/2022 5.1 12/16/2018 5.2 Last 10 Encounter BP Readings: Date: BP: 07/08/2023 130/66 07/05/2023 129/77 07/02/2023 120/64 06/23/2023 116/76 06/09/2023 118/78 05/15/2023 122/84 05/14/2023 132/92 04/18/2023 122/70 03/12/2023 120/78 03/10/2023 126/80 Latest Ref Rng AND Units 04/24/2022 08/05/2023 02/25/2024 CBC WBC 3.70 - 11.00 k/uL 7.49 7.05 7.70 RBC 3.90 - 5.20 m/uL 4.62 4.91 4.73 Hemoglobin 11.5 - 15.5 g/dL 11.6 14.1 14.2 Hematocrit 36.0 - 46.0 % 37.8 43.4 42.8 MCV 80.0 - 100.0 fL 81.8 88.4 90.5 MCH 26.0 - 34.0 pg 25.1 28.7 30.0 MCHC 30.5 - 36.0 g/dL 30.7 32.5 33.2 RDW-CV 11.5 - 15.0 % 13.9 13.0 12.2 Platelet Count 150 - 400 k/uL 331 291 283 MPV 9.0 - 12.7 fL 8.7 8.4 8.1 Baso% % 0.3 0.4 Abs Neut (ANC) 1.45 - 7.50 k/uL 5.00 4.33 Abs Lymph 1.00 - 4.00 k/uL 1.89 2.21 Abs Glacier <0.87 k/uL 0.47 0.42 Abs Eosin <0.46 k/uL 0.08 0.03 Abs Baso <0.11 k/uL <0.03 0.03 NRBC /100 WBC 0.0 0.0 Latest Ref Rng AND Units 09/10/2022 08/05/2023 02/25/2024 CMP Sodium 136 - 144 mmol/L 137 140 139 Potassium 3.7 - 5.1 mmol/L 4.3 4.4 4.6 Chloride 97 - 105 mmol/L 104 103 105 CO2 22 - 30 mmol/L 23 28 32 Glucose 74 - 99 mg/dL 91 84 79 BUN 7 - 21 mg/dL 8 8 10 Creatinine 0.58 - 0.96 mg/dL 0.62 0.53 0.68 EGFR >=60 mL/min/1.73m? 125 129 122 Protein, Total 6.3 - 8.0 g/dL 7.3 7.7 7.2 Albumin 3.9 - 4.9 g/dL 4.2 4.5 4.4 Calcium 8.5 - 10.2 mg/dL 9.7 9.7 9.5 Bilirubin, Total 0.2 - 1.3 mg/dL 0.9 1.5 1.4 AST 13 - 35 U/L 17 9 10 ALT 7 - 38 U/L 21 7 9 Alkaline Phosphatase 34 - 123 U/L 80 76 69 YES NO Smoking, vaping, nicotine, cannabis [] [x] Cigarettes/ day.... ? Diabetes [] [x] []Type 1? []Type 2 ?Last A1c:..... Systemic inflammatory diseases [x] [] []RA []Gout [x]Other.psoriasis.. Hypertension [] [x] Meds:....... Heart disease or pacemaker [] [x] ............ Family history blood clots [] [] Personal history blood clots [x] [] Blood clot to heart ? 10/2021 at [facility], DVT 02/2022 at [facility], both post op, had 4th degree tear and several surgeries after including ileostomy, ileostomy reversal, hernia surgery Anticoagulation (aspirin, coumadin, xarelto,etc) [] [x] What........... Reason:........... Immunosuppressants (steroid, biologic meds infusion, etc) [] [x] What........... Reason:........... Pt AGAINST blood transfusion? [] [x] Works at [employer] Does take multiple vitamins. Objective: PAST MEDICAL HISTORY Diagnosis Date Acute deep vein thrombosis (DVT) of popliteal vein of right lower extremity (HCC) 02/2022 Allergic rhinitis, unspecified 12/16/2018 Bowel obstruction (HCC) 2022 Encounter for insertion of Mirena IUD 12/24/2021 Ex-smoker 12/16/2018 Started at age 19 up to 1/2-1 PPD, quit 05/2018 SAMAN (generalized anxiety disorder) 12/16/2018 Seeing Klaus Gonzalez at the [facility] center. History of chlamydia 16 YO History of gastroesophageal reflux (GERD) 12/16/2018 History of morbid obesity PCOS (polycystic ovarian syndrome) Psoriasis 12/16/2018 Vitamin D deficiency 12/16/2018 PAST SURGICAL HISTORY Procedure Laterality Date CYST EXCISION 2016 right leg DANDC, DIAG AND/OR THERAPEUTIC 2020 EXTRACTION, ERUPTED TOOTH OR EXPOSED ROOT (ELEVATION AND/OR FORCEPS REMOVAL) 2012 LAPS SURG CHOLECYSTECTOMY W/CHOLANGIOGRAPHY 10/14/2023 Dr. Macdonald LOCAL REVISION OF ILESTOMY 02/24/2022 LYSIS OF ADHESIONS 10/14/2023 Dr. Macdonald PAST SURGICAL HISTORY OF multiplr vaginoplasty- RV fistual after FAVD AND 4th degree REMOVAL GALLBLADDER 10/14/2023 Current Outpatient Medications Medication Sig Dispense Ref (more content not included)... 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 Ear Problem Associated symptoms include ear discharge. Pertinent negatives include no abdominal pain, coughing, diarrhea, sore throat or vomiting. Patient states she has right ear pain that started three days ago and reports some post nasal drainage with nasal congestion and sinus pressure x 1 week. She has noticed some yellowish-green drainage from her right ear. She reports no recent sick exposures. She denies fever, cough, nausea, vomiting, and diarrhea and abdominal pain. Review of Systems Constitutional: Negative for fever and malaise/fatigue. HENT: Positive for congestion, ear discharge and ear pain. Negative for sinus pain and sore throat. Eyes: Negative. Respiratory: Negative for cough. Cardiovascular: Negative. Gastrointestinal: Negative for abdominal pain, diarrhea, nausea and vomiting. Musculoskeletal: Negative. Skin: Negative. Neurological: Negative. Psychiatric/Behavioral: Negative. PAST MEDICAL HISTORY Diagnosis Date Acute deep vein thrombosis (DVT) of popliteal vein of right lower extremity (HCC) 02/2022 Allergic rhinitis, unspecified 12/16/2018 Bowel obstruction (HCC) 2022 Encounter for insertion of Mirena IUD 12/24/2021 Ex-smoker 12/16/2018 Started at age 19 up to 10/13-1 PPD, quit 05/2018 SAMAN (generalized anxiety disorder) 12/16/2018 [facility]. History of chlamydia 16 YO History of gastroesophageal reflux (GERD) 12/16/2018 History of morbid obesity PCOS (polycystic ovarian syndrome) Psoriasis 12/16/2018 Vitamin D deficiency 12/16/2018 PAST SURGICAL HISTORY Procedure Laterality Date CYST EXCISION 2016 right leg DANDC, DIAG AND/OR THERAPEUTIC 2020 EXTRACTION, ERUPTED TOOTH OR EXPOSED ROOT (ELEVATION AND/OR FORCEPS REMOVAL) 2012 LAPS SURG CHOLECYSTECTOMY W/CHOLANGIOGRAPHY 10/14/2023 Dr. Macdonald LOCAL REVISION OF ILESTOMY 02/24/2022 LYSIS OF ADHESIONS 10/14/2023 Dr. Macdonald PAST SURGICAL HISTORY OF multiplr vaginoplasty- RV fistual after FAVD AND 4th degree REMOVAL GALLBLADDER 10/14/2023 ALLERGIES Tree Nuts and Morphine MEDICATIONS atomoxetine (STRATTERA) 10 mg capsule Take 1 capsule by mouth once daily. dulaglutide (TRULICITY) 3 mg/0.5 mL pen injector INJECT 1 PEN SUBCUTANEOUSLY EVERY WEEK TRULICITY 1.5 mg/0.5 mL pen injector Inject 3 mg subcutaneously one time a week amoxicillin-clavulanate potassium (AUGMENTIN) 875-125 mg per tablet Take 1 tablet by mouth two times a day for 7 days. topiramate (TOPAMAX) 25 mg tablet Take 4 tablets by mouth once daily. FAMILY HISTORY Problem Relation Age of Onset Heart disease Mother arythmia Diabetes Father Hypertension Father Thyroid Cancer Paternal Aunt 52 Cervical Cancer Paternal Aunt Uterine Cancer Paternal Aunt Breast Cancer Paternal Aunt 20 - 29 Ovarian cancer Paternal Aunt 20 - 29 Thyroid Cancer Paternal Aunt 19 resolved Breast Cancer Paternal Aunt 20 - 29 Kidney Disease Maternal Grandmother other (lupus) Maternal Grandmother Stroke Maternal Grandmother Heart Attack Maternal Grandmother Blood Clots Maternal Grandmother Colon Cancer Paternal Grandmother late 50's Coronary Artery Disease Paternal Grandmother 40's Diabetes Paternal Grandmother Hypertension Paternal Grandmother Diabetes Paternal Grandfather Hypertension Paternal Grandfather Alzheimer's Disease No Family History Hyperlipidemia No Family History Thyroid No Family History Seizures No Family History Social History Tobacco Use Smoking status: Some Days Types: Cigarettes Smokeless tobacco: Never Tobacco comments: Stopped smoking cigarettes, just uses vape now Vaping Use Vaping status: current everyday user Start date: 05/12/2023 Substances: Nicotine, Flavoring Devices: Disposable Substance Use Topics Alcohol use: Yes Alcohol/week: 1.0 standard drink of alcohol Types: 1 Cans of beer per week Comment: monthly Drug use: No BP 128/84 Pulse 79 Temp 36.3 ?C (97.3 ?F) (Left Tympanic) Resp 16 Wt 92.1 kg (203 lb 0.7 oz) LMP 05/27/2024 (Approximate) SpO2 99% BMI 37.13 kg/m? Objective Physical Exam Vitals and nursing note reviewed. Constitutional: Appearance: Normal appearance. HENT: Head: Normocephalic. Right Ear: Hearing, ear canal and external ear normal. A middle ear effusion is present. Tympanic (more content not included)... Normal [facility] UA DIP, URINE (POC)on 2023 BILIRUBIN UA (POCT) Small Abnormal Negative [facility] CLARITY UA (POCT) Cloudy [facility] COLOR UA (POCT) Dark yellow [facility] GLUCOSE UA (POCT) Negative Negative mg/dL [facility] Hemoglobin Ql (U) Negative Negative [facility] Interpretation and review of laboratory results Abnormal [facility] KETONE UA (POCT) Trace Negative mg/dL [facility] LEUKOCYTES UA (POCT) Small Abnormal Negative [facility] NITRITE UA (POCT) Negative Negative [facility] PH UA (POCT) 7.0 4.5 - 8.0 [facility] Protein Ql (U) 30 mg/dL Abnormal Negative [facility] SPECIFIC GRAVITY UA (POCT) 1.025 1.005 - 1.030 [facility] UROBILINOGEN UA (POCT) 2.0 Abnormal Normal E.U./dL [facility] Location:[facility], [address] [place] [address], [place], [place], [id number] [place] [address] POINT OF CARE [facility] C. DIFFICILE PCRon C. difficile toxin genes SANJEEV+probe Ql (Stl) Negative Negative for C. difficile toxin by PCR [facility] C. difficile toxin genes SANJEEV +probe Ql (Stl)on 02-25-2024 Interpretation and review of laboratory results Normal [facility] CBC panel Auto (Bld)on 02-24 Erythrocyte distribution width (RBC) [Ratio] 12.2 % 11.5 - 15.0 % [facility] Hematocrit (Bld) [Volume fraction] 42.8 % 36.0 - 46.0 % [facility] Hemoglobin (Bld) [Mass/Vol] 14.2 g/dL 11.5 - 15.5 g/dL [facility] Interpretation and review of laboratory results Abnormal [facility] MCH (RBC) [Entitic mass] 30.0 pg 26.0 - 34.0 pg [facility] MCHC (RBC) [Mass/Vol] 33.2 g/dL 30.5 - 36.0 g/dL [facility] MCV (RBC) [Entitic vol] 90.5 fL 80.0 - 100.0 fL [facility] Nucleated RBC (Bld) [#/Vol] NINF [facility] Platelet mean volume (Bld) [Entitic vol] 8.1 fL Low 9.0 - 12.7 fL [facility] Platelets (Bld) [#/Vol] 283 10*3/uL [facility] RBC (Bld) [#/Vol] 4.73 10*6/uL 3.90 - 5.2 0 m/uL [facility] WBC (Bld) [#/Vol] 7.70 10*3/uL [facility] Comprehensive metabolic 2000 panelOrdered By: Haylie Duvall on 02-25-2024 Albumin [Mass/Vol] 4.4 g/dL 3.9 - 4.9 g/dL [facility] ALP [Catalytic activity/Vol] 69 U/L 34 - 123 U/L [facility] ALT [Catalytic activity/Vol] 9 U/L 7 - 38 U/L [facility] Anion gap [Moles/Vol] 2 mmol/L Low 9 - 18 mmol/L [facility] AST [Catalytic activity/Vol] 10 U/L Low 13 - 35 U/L [facility] Bilirubin [Mass/Vol] 1.4 mg/dL High 0.2 - 1 .3 mg/dL [facility] Calcium [Mass/Vol] 9.5 mg/dL 8.5 - 10. 2 mg/dL [facility] Chloride [Moles/Vol] 105 mmol/L 97 - 10 5 mmol/L [facility] CO2 [Moles/Vol] 32 mmol/L High 22 - 30 mmol/L [facility] Creatinine [Mass/Vol] 0.68 mg/dL 0.58 - 0.96 mg/dL [facility] GFR/1.73 sq M.predicted among non-blacks MDRD (S/P/Bld) [Vol rate/Area] 122 mL/min/{1.73_m2} - PINF [facility] Comment on above: Estimated Glomerular Filtration Rate (eGFR) is calculated using the 2020 CKD-EPI creatinine equation. This equation utilizes serum creatinine, sex, and age as parameters. The creatinine assay has traceable calibration to isotope dilution-mass spectrometry. Refer to KDIGO guidelines for clinical interpretation. In patients with unstable renal function, e.g. those with acute kidney injury, the eGFR may not accurately reflect actual GFR. Glucose [Mass/Vol] 79 mg/dL 74 - 99 mg/dL [facility] Comment on above: The [place] Diab[employer] s Association (ADA) provides guidance for cutoff values for fasting glucose and random glucose. The ADA defines fasting as no caloric intake for at least 8 hours. Fasting plasma glucose results between 100 to 125 mg/dL indicate increased risk for diabetes (prediabetes). Fasting plasma glucose results greater than or equal to 126 mg/dL meet the criteria for diagnosis of diabetes. In the absence of unequivocal hyperglycemia, results should be confirmed by repeat testing. In a patient with classic symptoms of hyperglycemia or hyperglycemic crisis, random plasma glucose results greater than or equal to 200 mg/dL meet the criteria for diagnosis of diabetes. Reference: Standards of Medical Care in Diabetes 2016, [place] Diabetes Association. Diabetes Care. 2016.39(Suppl 1). Interpretation and review of laboratory results Abnormal [facility] Potassium [Moles/Vol] 4.6 mmol/L 3.7 - 5.1 mmol/L [facility] Protein [Mass/Vol] 7.2 g/dL 6.3 - 8.0 g/dL Cl [facility] Sodium [Moles/Vol] 139 mmol/L 136 - 144 mmol/L [facility] Urea nitrogen [Mass/Vol] 10 mg/dL 7 - 21 mg/dL [facility] BACTERIAL VAGINOSIS NAATon 0 12-10-2023 Lactobacillus crispatus+gasseri+yumi senii + Gardnerella vaginalis + Atopobium vaginae rRNA SANJEEV+probe Ql (Vag fld) Negative Negative for bacterial vaginosis [facility] No Panel Informationon 11-27 Radiology Study observation (narrative) [facility] US Breast - left limitedon 0 11-27-2023 IMPRESSION: NEGATIVE There is no sonographic evidence of malignancy. There is no abnormality seen in the left breast to correspond with the non-bloody discharge from the nipple in the sub-areolar depth, however, clinical correlation and clinical followup are recommended. The patient is under the care of Buck Szymanski CNP. Follow-up with ACR/NCCN guidelines. Caren jhaveri/neto:11/27/2023 14:37:08 [employer] Furn[employer] Feeder(s): RT Xiomara(R)(M), [facility] Ultrasound BI-RADS: 1 Negative Multiple national specialty organizations have released breast cancer screening guidelines for women at average risk for developing breast cancer - guidelines that are based on both evidence and opinion, yet differ on when to start and how often to screen for breast cancer. With representation from Breast Imaging, Internal Medicine, Women's Health, Family Medicine, and Medical/Surgical Oncology, the [facility] has carefully reviewed the data and reached the following consensus: 1) All women should engage in shared decision-making with their providers to decide when to start and how often to screen; 2) All women should have the opportunity to start screening mammography at age 40; 3) For women ages 45-55, we recommend annual screening mammograms; 4) For women ages 55 and over, we support both the transition from an annual to a biennial interval if this aligns more with patient's values and preferences, or continuation with annual screening; 5) All women should discuss with their providers when to stop screening mammograms. Production Leader: Neto Transcribe Date/Time: Nov 27 2023 2:04P Dictated by: CAREN MENDEZ MD This examination was interpreted and the report reviewed and electronically signed by: CAREN MENDEZ MD on Nov 27 2023 2:37PM [facility] DIVISION OF RADIOLOGY * * *Final Report* * * DATE OF EXAM: Nov 27 2023 2:14PM [facility] 0[address] - [facility] Eligible BREAST LTD LT / PROCEDURE REASON: Discharge from both nipples * * * * Physician Interpretation * * * * RESULT: #[id number] - [facility] US BREAST LTD LT LIMITED ULTRASOUND OF LEFT BREAST: 11/27/2023 HISTORY: 28 year old female with bilateral clear/milky nipple discharge. RESULT: Comparison is made to exam dated: 11/27/2023 [facility]. Color flow ultrasound of the left breast retroareolar was performed. Corbett scale images of the real-time examination were reviewed. No suspicious sonographic mass or architectural distortion is identified within this area. No sonographic abnormality is visualized. DIVISION OF RADIOLOGY Provider, Kaylene Darden - 11/27/2023 * * *Final Report* * * DATE OF EXAM: Nov 27 2023 2:14PM [facility] 0[address] - [facility] US BREAST LTD LT / PROCEDURE REASON: Discharge from both nipples * * * * Physician Interpretation * * * * RESULT: #[id number] - [facility] Eligible BREAST LTD LT LIMITED ULTRASOUND OF LEFT BREAST: 11/27/2023 HISTORY: 28 year old female with bilateral clear/milky nipple discharge. RESULT: Comparison is made to exam dated: 11/27/2023 [facility]. Color flow ultrasound of the left breast retroareolar was performed. Corbett scale images of the real-time examination were reviewed. No suspicious sonographic mass or architectural distortion is identified within this area. No sonographic abnormality is visualized. IMPRESSION IMPRESSION: NEGATIVE There is no sonographic evidence of malignancy. There is no abnormality seen in the left breast to correspond with the non-bloody discharge from the nipple in the sub-areolar depth, however, clinical correlation and clinical followup are recommended. The patient is under the care of Buck Szymanski CNP. Follow-up with ACR/NCCN guidelines. Caren castillo:11/27/2023 14:37:08 [employer] Furnace Feeder(s): RT Xiomara(R)(M), [facility] Ultrasound BI-RADS: 1 Negative Multiple national specialty organizations have released breast cancer screening guidelines for women at average risk for developing breast cancer - guidelines that are based on both evidence and opinion, yet differ on when to start and how often to screen for breast cancer. With representation from Breast Imaging, Internal Medicine, Women's Health, Family Medicine, and Medical/Surgical Oncology, the [facility] has carefully reviewed the data and reached the following consensus: 1) All women should engage in shared decision-making with their providers to decide when to start and how often to screen; 2) All women should have the opportunity to start screening mammography at age 40; 3) For women ages 45-55, we recommend annual screening mammograms; 4) For women ages 55 and over, we support both the transition from an annual to a biennial interval if this aligns more with patient's values and preferences, or continuation with annual screening; 5) All women should discuss with their providers when to stop screening mammograms. Production Leader: Neto Transcribe Date/Time: Nov 27 2023 2:04P Dictated by: CAREN MENDEZ MD This examination was interpreted and the report reviewed and electronically signed by: CAREN MENDEZ MD on Nov 27 2023 2:37PM [facility] US Breast - right limitedon 11-27-2023 IMPRESSION: NEGATIVE There is no sonographic evidence of malignancy. There is no abnormality seen in the right breast to correspond with the non-bloody discharge from the nipple in the sub-areolar depth, however, clinical correlation and clinical followup are recommended. The patient is under the care of Buck Szymanski CNP. Follow-up with ACR/NCCN guidelines. Caren castillo:11/27/2023 14:35:43 [employer] Furnace Feeder(s): Abigail Ramírez RT(R)(M), [facility] Ultrasound BI-RADS: 1 Negative Multiple national specialty organizations have released breast cancer screening guidelines for women at average risk for developing breast cancer - guidelines that are based on both evidence and opinion, yet differ on when to start and how often to screen for breast cancer. With representation from Breast Imaging, Internal Medicine, Women's Health, Family Medicine, and Medical/Surgical Oncology, the [facility] has carefully reviewed the data and reached the following consensus: 1) All women should engage in shared decision-making with their providers to decide when to start and how often to screen; 2) All women should have the opportunity to start screening mammography at age 40; 3) For women ages 45-55, we recommend annual screening mammograms; 4) For women ages 55 and over, we support both the transition from an annual to a biennial interval if this aligns more with patient's values and preferences, or continuation with annual screening; 5) All women should discuss with their providers when to stop screening mammograms. Production Leader: Neto Transcribe Date/Time: Nov 27 2023 1:55P Dictated by: CAREN MENDEZ MD This examination was interpreted and the report reviewed and electronically signed by: CAREN MENDEZ MD on Nov 27 2023 2:35PM [facility] DIVISION OF RADIOLOGY * * *Final Report* * * DATE OF EXAM: Nov 27 2023 2:14PM [facility] 0594 - [facility] BREAST LTD RT / PROCEDURE REASON: Discharge from both nipples * * * * Physician Interpretation * * * * RESULT: #[id number] - [facility] BREAST LTD RT LIMITED ULTRASOUND OF RIGHT BREAST: 11/27/2023 HISTORY: 28 year old female with bilateral clear/milky nipple discharge. RESULT: No prior exams were available for comparison. Color flow and real-time ultrasound of the right breast retroareolar were performed. Corbett scale images of the real-time examination were reviewed. No suspicious sonographic mass or architectural distortion is identified within this area. No sonographic abnormality is visualized. DIVISION OF RADIOLOGY [facility] * * *Final Report* * * DATE OF EXAM: Nov 27 2023 2:14PM [facility] 0594 - [facility] Eligible BREAST LTD RT / PROCEDURE REASON: Discharge from both nipples * * * * Physician Interpretation * * * * RESULT: #[id number] - [facility] US BREAST LTD RT LIMITED ULTRASOUND OF RIGHT BREAST: 11/27/2023 HISTORY: 28 year old female with bilateral clear/milky nipple discharge. RESULT: No prior exams were available for comparison. Color flow and real-time ultrasound of the right breast retroareolar were performed. Corbett scale images of the real-time examination were reviewed. No suspicious sonographic mass or architectural distortion is identified within this area. No sonographic abnormality is visualized. IMPRESSION IMPRESSION: NEGATIVE There is no sonographic evidence of malignancy. There is no abnormality seen in the right breast to correspond with the non-bloody discharge from the nipple in the sub-areolar depth, however, clinical correlation and clinical followup are recommended. The patient is under the care of Buck Szymanski CNP. Follow-up with ACR/NCCN guidelines. Caren jhaveri/neto:11/27/2023 14:35:43 [employer]ing Furnace Feeder(s): RT Xiomara(R)(M), [facility] Ultrasound BI-RADS: 1 Negative Multiple national specialty organizations have released breast cancer screening guidelines for women at average risk for developing breast cancer - guidelines that are based on both evidence and opinion, yet differ on when to start and how often to screen for breast cancer. With representation from Breast Imaging, Internal Medicine, Women's Health, Family Medicine, and Medical/Surgical Oncology, the [facility] has carefully reviewed the data and reached the following consensus: 1) All women should engage in shared decision-making with their providers to decide when to start and how often to screen; 2) All women should have the opportunity to start screening mammography at age 40; 3) For women ages 45-55, we recommend annual screening mammograms; 4) For women ages 55 and over, we support both the transition from an annual to a biennial interval if this aligns more with patient's values and preferences, or continuation with annual screening; 5) All women should discuss with their providers when to stop screening mammograms. Production Leader: Neto Transcribe Date/Time: Nov 27 2023 1:55P Dictated by: CAREN MENDEZ MD This examination was interpreted and the report reviewed and electronically signed by: CAREN MENDEZ MD on Nov 27 2023 2:35PM EST [facility] US Breast - right limitedOrd ered By: Ccf Provider on 11-27-2023 [facility] Absolute lymphocyte countOrd ered By: Tanner Ryan on 11-24-2023 Lymphocytes Auto (Unsp spec) [#/Vol] 1.74 10*3/uL 0.83-4.51 [facility] Automated lymphocyte count a s percentage of total leukocytesOrdered By: Tanner Ryan on 11-24-2023 Lymphocytes/100 WBC Auto (Unsp spec) 27.4 % 19-41 [facility] Basophil percentageOrdered B y: Tanner Ryan on 11-24-2023 Basophils/100 WBC (Bld) 0.3 % 0-1 [facility] Chloride [Moles/Vol] 109 mmol/L 98-107 [facility] Eosinophils/100 WBC (Bld) 0.5 % 0-5 [facility] Glucose [Mass/Vol] 88 mg/dL 74-106 [facility] Hemoglobin (Bld) [Mass/Vol] 13.7 g/dL 12.0-15.0 [facility] Monocytes/100 WBC (Bld) 5.2 % 0-10 [facility] Neutrophils (Bld) [#/Vol] 4.2 10*3/uL 2.0-7.7 [facility] Neutrophils/100 WBC (Bld) 66.3 % 47-70 [facility] Potassium [Moles/Vol] 4.5 mmol/L 3.5-5.1 [facility] Comment on above: Moderate Hemolysis, Result may be falsely increased. Sodium [Moles/Vol] 140 mmol/L 136-145 [facility] WBC (Bld) [#/Vol] 6.4 10*3/uL 4.4-11.0 [facility] Basophil percentage >100 SEEN /hpf 0-5 [facility] Bilirubin Test strip Ql (U)O rdered By: ED PROVIDER on 11-24-2023 Bilirubin Ql (U) Negative Negative [facility] Determination of erythrocyte mean corpuscular volume (MCV)Ordered By: Tanner Ryan on 11-24-2023 MCV (RBC) [Entitic vol] 89.7 fL 81-99 [facility] Erythrocyte distribution wid th ratioOrdered By: Tanner Ryan on 11-24-2023 Erythrocyte distribution width (RBC) [Ratio] 13.2 % 11.6-14.6 [facility] Erythrocyte distribution wid th standard deviationOrdered By: Tanner Ryan on 11-24-2023 Erythrocyte distribution width (RBC) [Entitic vol] 43.0 fL 35.1-43.9 [facility] Hematocrit Auto (Bld) [Volum e fraction]Ordered By: Tanner Ryan on 11-24-2023 Hematocrit (Bld) [Volume fraction] 41.9 % 37-47 [facility] Immature granulocytes/100 WB C Auto (Bld)Ordered By: Tanner Ryan on 11-24-2023 Immature granulocytes/100 WBC (Bld) 0.300 % 0.0-0.9 [facility] Comment on above: IG% - Immature Granu locytes (promyelocytes, myelocytes and metamyelocytes) > 1% indicates that a LEFT SHIFT is Present. Ketones Test strip Ql (U)Ord ered By: ED PROVIDER on 11-24-2023 Ketones Ql (U) Negative Negative [facility] Laboratory - Chemistry and C hemistry - challengeOrdered By: Tanner Ryan on 11-24-2023 CO2 [Moles/Vol] 26.0 mmol/L 21.0-32.0 [facility] Urea nitrogen/Creatinine [Mass ratio] 8.3 mg/mg 10-20 [facility] - Hematology and Cell countsOrdered By: Tanner Ryan on 11-24-2023 MCH (RBC) [Entitic mass] 29.3 pg 27.0-32.0 [facility] MCHC (RBC) [Mass/Vol] 32.7 g/dL 32-36 [facility] Nucleated RBC/100 WBC (Bld) [Ratio] 0 % 0-5 [facility] Platelet mean volume (Bld) [Entitic vol] 8.1 fL 6.2-12.0 [facility] Platelets (Bld) [#/Vol] 277 10*3/uL 150-450 [facility] Mucus LM Ql (Urine sed)Order ed By: Tanner Ryan on 11-24-2023 Mucus Ql (Urine sed) 0 SEEN /hpf [facility] Nitrite Test strip Ql (U)Ord ered By: ED PROVIDER on 11-24-2023 Nitrite Ql (U) Positive Negative [facility] No Panel InformationOrdered By: Tanner Ryan on 11-24-2023 Estimated Creatinine Clearance Calc 122.47 ml/min [facility] Estimated GFR (MDRD) Amer 122 mL/min >60 [facility] Comment on above: GFR Calc Estimated GFR (MDRD) Non-Af Amer 101 mL/min >60 [facility] Comment on above: Non- GFR Calc Urine RBC 5-10 SEEN /hpf 0-5 [facility] Protein Test strip Ql (U)Ord ered By: ED PROVIDER on 11-24-2023 Protein Ql (U) 30 mg/dl Negative [facility] RBC Auto (Bld) [#/Vol]Ordere d By: Tanner Ryan on 11-24-2023 RBC (Bld) [#/Vol] 4.67 10*6/uL 4.2-5.4 [facility] Serum or plasma calcium jay urement (mass/volume)Ordered By: Tanner Ryan on 11-24-2023 Calcium [Mass/Vol] 9.3 mg/dL 8.5-10.1 [facility] Serum or plasma choriogonado tropin detectionOrdered By: Tanner Ryan on 11-24-2023 HCG ( test) Ql Negative [facility] Serum or plasma creatinine m easurement (mass/volume)Ordered By: Tanner Ryan on 11-24-2023 Creatinine [Mass/Vol] 0.73 mg/dL 0.55-1.02 [facility] Comment on above: The validity of the calculated GFR & GFRAA in patients over 70 years has not been determined. Clinical correlation is essential. Serum or plasma urea nitroge n measurement (mass/volume)Ordered By: Tanner Ryan on 11-24-2023 Urea nitrogen [Mass/Vol] 6 mg/dL 7-18 [facility] Squamous epithelial cells de tection in urine sediment by light microscopyOrdered By: Tanner Ryan on 11-24-2023 Epithelial cells.squamous LM Ql (Urine sed) 0-5 SEEN /hpf 5-10 [facility] Thin prep Papanicolaou smear with manual screeningOrdered By: Tanner Ryan on 11-24-2023 Thin prep Papanicolaou smear with manual screening 5 5-15 [facility] Urine blood detectionOrdered By: ED PROVIDER on 11-24-2023 RBC Ql (U) 150 /ul Negative [facility] Urine clarityOrdered By: ED PROVIDER on 11-24-2023 Clarity (U) Cloudy Clear [facility] Urine color determinationOrd ered By: ED PROVIDER on 11-24-2023 Color (U) Yellow Yellow [facility] Urine glucose detectionOrder ed By: ED PROVIDER on 11-24-2023 Glucose Ql (U) Normal mg/dl Normal [facility] Urine leukocyte esterase det ection by dipstickOrdered By: ED PROVIDER on 11-24-2023 Leukocyte esterase Test strip Ql (U) 500 /ul Negative [facility] Urine pHOrdered By: ED PROVI RICKI on 11-24-2023 pH (U) 6.5 [pH] 5.0 - 8.0 [facility] Urine sediment bacteria coun t by microscopy (number/high power field)Ordered By: Tanner Ryan on 11-24-2023 Bacteria LM.HPF (Urine sed) [#/Area] 2 /[HPF] None Seen [facility] Urine specific gravity measu rementOrdered By: ED PROVIDER on 11-24-2023 Specific gravity (U) [Rel density] 1.015 1.002-1.030 [facility] Urine urobilinogen measureme ntOrdered By: ED PROVIDER on 11-24-2023 Urobilinogen Ql (U) Normal mg/dl Normal [facility] UA DIP, URINE (POC)on 2023 BILIRUBIN UA (POCT) Negative Negative [facility] CLARITY UA (POCT) Clear [facility] COLOR UA (POCT) Yellow [facility] GLUCOSE UA (POCT) Negative Negative mg/dL [facility] Hemoglobin Ql (U) Negative Negative [facility] KETONE UA (POCT) Negative Negative mg/dL [facility] LEUKOCYTES UA (POCT) Trace Abnormal Negative [facility] NITRITE UA (POCT) Negative Negative [facility] PH UA (POCT) 6.0 4.5 - 8.0 [facility] Protein Ql (U) Negative Negative mg/dL [facility] SPECIFIC GRAVITY UA (POCT) 1.010 1.005 - 1.030 [facility] UROBILINOGEN UA (POCT) 0.2 E.U./dL Normal E.U./dL [facility] Prolactin SerPl-mCncon 10-28 Prolactin [Mass/Vol] 8.5 ng/mL Normal 4.5-26.8 [facility] Comment on above: Order Comment: Speci men Type: BLOOD SPECIMEN Ordering Facility: [facility] Address: [address] [place] [address] Result Comment: Prol actin test is performed using the [employer] Electrochemiluminescence Immunoassay method. Results obtained with different methods or kits cannot be used interchangeably. Performed By: #### P TGEN #### [facility]LL[facility]S CLIA [id number] [address] [place] [address] [place] [address] [place] EMERGENCY REPORTon 4 EMERGENCY REPORT [facility] EMERGENCY ROOM REPORT NAME ACCOUNT SEX AGE ADMIT DISCHARGE PT MED. RECORD# NUMBER DATE DATE TYPE LEELEE ZAMORA [id number] F 28 10/20/23 10/20/23 3 N [id number] ROOM: ER DATE OF : 1995 DICTATING PHYSICIAN: Enoch Medina CHIEF COMPLAINT: Abdominal pain with nausea and diarrhea. HISTORY OF PRESENT ILLNESS: The patient had a laparoscopic cholecystectomy done at [facility] last week. She states over the last couple of days, particularly today, she has had multiple episodes of diarrhea. She also is complaining of increasing pain. She has nausea, but no vomiting. No documented fever. She states that they were unable to reach her surgeon, but the office told her to be evaluated in the ED. She presents for evaluation of that. No significant urinary symptoms. PAST MEDICAL HISTORY: Past medical history is negative for other medical problems. PAST SURGICAL HISTORY: She has had previous ileostomy and reversal with partial bowel resection and last week cholecystectomy as mentioned. MEDICATIONS: She takes no mediations regularly. SOCIAL HISTORY: She lives at home. She does smoke Electronic cigarettes. She does not drink alcohol or use marijuana or other drugs. REVIEW OF SYSTEMS: Negative other than what is mentioned above. PHYSICAL EXAMINATION: GENERAL: This is a 28-year-old female alert, appropriate, appears uncomfortable, but not toxic. SKIN: Her skin is pink, warm, and dry. HEENT: Essentially all within normal limits. NECK: Her neck is supple. LUNGS: Lungs are clear. CARDIAC: Cardiac exam is regular rhythm without ectopy or murmurs, gallops or rubs. ABDOMEN: Abdomen is generally soft. She has some mild diffuse tenderness. She has a number of stab lacerations that appear generally clean and dry with skin glue over them. Periumbilical incision has some mild ecchymosis, but no purulent drainage or fluctuance. Bowel sounds are present, but diminished. EXTREMITIES: She moves all extremities appropriately without any clubbing, cyanosis, or edema. Capillary refill is about 1 second. VITAL SIGNS: Temperature 97.8, pulse 102, respirations 16, and blood pressure 130/90. Her O2 saturation is 98%. DIAGNOSTIC DATA: Laboratory studies and abdominal CT were obtained. CBC shows a white count of 8200, 87% neutrophils, normal H&H. CMP: Normal electrolytes other Page 1 of 2 LEELEE ZAMORA Emergency Room Report NOAH LEEELE Saucedo : 1995 than a CO2 of 19.7. BUN and creatinine are 17 and 0.53. Unremarkable liver enzymes. Her bilirubin is slightly elevated at 2.3. Lipase is 26. Abdominal and pelvis CT, read by Radiology, showed trace free fluid in the pelvis, subcutaneous right-sided abdominal wall edema, but otherwise no acute abnormalities. EMERGENCY DEPARTMENT COURSE AND TREATMENT: IV was placed. She was given a liter of IV fluids, Protonix, Zofran, and Dilaudid IV, which did help with her symptoms. DIAGNOSES: 1. Post cholecystitis. 2. Nausea with diarrhea. PLAN/DISPOSITION: I discussed management with her. We will send her home with some Seneca for pain, Lomotil for diarrhea, Zofran for nausea, and Protonix. She is to see her surgeon within the next 1 to 2 days if no better, returning if symptoms worsen. Dictated By: Enoch Medina MD 10/20/23 15:05 JOB #: [id number] Transcribed By: am 10/20/23 15:28 Electronically signed by: LAURA Medina M.D. 10/27/23 07:05 Page 2 of 2 YULISSA ZAMORADAVIDSON Saucedo Emergency Room Report Normal [facility] C-REACTIVE PROTEINon 024 CRP 0.88 mg/dl Normal 0.00 - 0.90 [facility] Comment on above: Performed By: #### 2 [id number] #### [facility],[address] [place] [address] CBC + DIFFon 10-20-2023 Baso # 0.00 x10EE3/UL Normal 0.00 - 0.10 [facility] Comment on above: Performed By: #### 2 46401 #### [facility],[address] [place], [place] [id number] Basophils/100 WBC (Bld) 0.2 % Normal 0.0 - 2.0 [facility] Comment on above: Performed By: #### 2 79474 #### [facility],[address] [place] [address] CBC + DIFF Normal [facility] Comment on above: Result Comment: CBC- COMPLETE BLOOD COUNT Performed By: #### 2 74534 #### [facility],[address] [place] [address] EO # 0.10 x10EE3/UL Normal 0.00 - 0.50 [facility] Comment on above: Performed By: #### 2 18810 #### [facility],[address] [place], [place] [id number] Eosinophils/100 WBC (Bld) 0.9 % Normal 0.0 - 7.0 [facility] Comment on above: Performed By: #### 2 24521 #### [facility],[address] [place] [address] Erythrocyte distribution width (RBC) [Ratio] 14.9 % Normal 12.0 - 15.6 [facility] Comment on above: Performed By: #### 2 60501 #### [facility],[address] [place] [address] Hematocrit (Bld) [Volume fraction] 45.5 % Normal 34.0 - 46.0 [facility] Comment on above: Performed By: #### 2 90206 #### [facility],[address] [place] [address] Hemoglobin (Bld) [Mass/Vol] 14.6 g/dL Normal 12.0 - 16.0 [facility] Comment on above: Performed By: #### 2 32114 #### [facility],[address] [place] [address] Lymph # 0.50 x10EE3/UL Low 0.80 - 2.80 [facility] Comment on above: Performed By: #### 2 19806 #### [facility],[address] [place] [address] Lymphocytes/100 WBC (Bld) 5.6 % Low 20.0 - 45.0 [facility] Comment on above: Performed By: #### 2 36367 #### [facility],[address] [place] [address] MANUAL DIFF N/A Normal [facility] Comment on above: Performed By: #### 2 94871 #### [facility],[address] [place] [address] MCH (RBC) [Entitic mass] 30 pg Normal 27 - 33 [facility] Comment on above: Performed By: #### 2 21446 #### [facility],[address] [place] [address] MCHC 32 X10 3 Normal 32 - 36 [facility] Comment on above: Performed By: #### 2 59469 #### [facility],[address] [place], [place] [id number] MCV (RBC) [Entitic vol] 92 fL Normal 80 - 99 [facility] Comment on above: Performed By: #### 2 27004 #### [facility],[address] [place] [address] Glacier # 0.50 x10EE3/UL Normal 0.20 - 1.00 [facility] Comment on above: Performed By: #### 2 65561 #### [place] [address] MONOS % 6.2 % Normal 0.0 - 10.0 [facility] Comment on above: Performed By: #### 2 65560 #### [facility],[address] [place] [address] Morphology Alexandru (Bld) [Interp] N/A Normal [facility] Comment on above: Result Comment: {CD] Performed By: #### 2 31139 #### [place] [address] Neut # 7.10 x10EE3/UL Normal 1.50 - 7.10 [facility] Comment on above: Performed By: #### 2 28766 #### [place] [address] Neutrophils/100 WBC (Bld) 87.1 % High 46.0 - 76.0 [facility] Comment on above: Performed By: #### 2 70071 #### [place] [address] PLATELET 236 x10EE3/UL Normal 150 - 450 [facility] Comment on above: Performed By: #### 2 87618 #### [place] [address] Platelet mean volume (Bld) [Entitic vol] 6.2 fL Low 6.6 - 10.5 [facility] Comment on above: Result Comment: AUTO MATED DIFFERENTIAL Performed By: #### 2 43247 #### [place] [address] RBC 4.94 x 10EE6/UL Normal 4.10 - 5.30 [facility] Comment on above: Performed By: #### 2 26237 #### [address],[place] [address] WBC 8.2 x 10EE3/UL Normal 4.5 - 10.8 [facility] Comment on above: Performed By: #### 2 73923 #### [facility],[address] [place] [address] CMP with eGFRon 10-20-2023 AGE 28 years Normal [facility] Comment on above: Performed By: #### 2 42126 #### [facility],[address] [place] [address] Albumin [Mass/Vol] 3.2 g/dL Low 3.4 - 5.0 [facility] Comment on above: Performed By: #### 2 18129 #### [facility],[address] [place] [address] Albumin/Globulin [Mass ratio] 0.8 {ratio} Low 0.9 - 1.6 [facility] Comment on above: Performed By: #### 2 84724 #### [facility],[address] [place] [address] ALK PHOS 68 U/L Normal 46 - 116 [facility] Comment on above: Performed By: #### 2 57900 #### [facility],[address] [place] [address] ALT [Catalytic activity/Vol] 30 U/L Normal 14 - 59 [facility] Comment on above: Performed By: #### 2 71307 #### [facility],[address] [place] [address] Anion gap [Moles/Vol] 15 mmol/L Normal 10 - 20 [facility] Comment on above: Performed By: #### 2 90363 #### [facility],[address] [place] [address] AST [Catalytic activity/Vol] 12 U/L Low 13 - 39 [facility] Comment on above: Performed By: #### 2 61614 #### [facility],[address] [place] [address] B/C RATIO 32 ratio High 0 - 30 [facility] Comment on above: Performed By: #### 2 41380 #### [facility],[address] [place] [address] Bilirubin [Mass/Vol] 2.3 mg/dL High 0.2 - 1.0 [facility] Comment on above: Performed By: #### 2 [id number] #### [facility],[address] [place] [address] 95944 Calcium [Mass/Vol] 8.5 mg/dL Normal 8.5 - 10.1 [facility] Comment on above: Performed By: #### 2 69869 #### [facility],[address] [place] [address] 36855 Chloride [Moles/Vol] 105 mmol/L Normal 98 - 107 [facility] Comment on above: Performed By: #### 2 59425 #### [facility],[address] [place] [address] 97968 CMP with eGFR Normal [facility] Comment on above: Result Comment: COMP REHENSIVE METABOLIC PANEL Performed By: #### 2 14187 #### [facility],[address] [place] [address] 18284 CO2 [Moles/Vol] 19.7 mmol/L Low 21.0 - 32.0 [facility] Comment on above: Performed By: #### 2 43517 #### [facility],[address] [place] [address] 87202 Creatinine [Mass/Vol] 0.53 mg/dL Low 0.55 - 1.02 [facility] Comment on above: Performed By: #### 2 14120 #### [facility],[address] [place] [address] 93278 GFR/1.73 sq M.predicted among non-blacks MDRD (S/P/Bld) [Vol rate/Area] mL/min/{1.73_m2} Normal 60 - 999 [facility] Comment on above: Performed By: #### 2 99905 #### [facility],[address] [place] [address] 60401 Result Comment: ACCO RDING TO THE NATIONAL KIDNEY DISEASE EDUCATION PROGRAM(NKDE), A NORMAL eGFR IS A VALUE GREATER THAN OR EQUAL TO 60 ML/MIN/1.73 SQ METERS. CHRONIC KIDNEY DISEASE: <60mL/MIN/1.73 SQ METERS KIDNEY FAILURE: <15mL/MIN/1.73 SQ METERS THIS TEST SHOULD ONLY BE USED FOR PATIENTS 18 YEARS OF AGE AND OLDER. Globulin (S) [Mass/Vol] 4.0 g/dL High 1.5 - 3.8 [facility] Comment on above: Performed By: #### 2 61190 #### [facility],[address] [place] [address] 71278 Glucose [Mass/Vol] 86 mg/dL Normal 74 - 106 [facility] Comment on above: Performed By: #### 2 05165 #### [facility],[address] [place] [address] 34480 Potassium [Moles/Vol] 3.8 mmol/L Normal 3.5 - 5.1 [facility] Comment on above: Performed By: #### 2 09619 #### [facility],[address] [place] [address] 48621 Protein [Mass/Vol] 7.2 g/dL Normal 6.4 - 8.2 [facility] Comment on above: Performed By: #### 2 56700 #### [facility],[address] [place] [address] 29762 Sodium [Moles/Vol] 136 mmol/L Normal 136 - 145 [facility] Comment on above: Performed By: #### 2 94331 #### [facility],[address] [place] [address] 84231 Urea nitrogen [Mass/Vol] 17 mg/dL Normal 7 - 18 [facility] Comment on above: Performed By: #### 2 65898 #### [facility],[address] [facility] [address] ABDOMEN/PELVIS Won 2023 CT ABDOMEN/PELVIS W [address] [address] Patient: LEELEE ZAMORA Phone#: : [phone] Age: 28 Gender: F Pt. Type: ER Account: [id number] Location: [facility] Ordering: ENOCH MEDINA Exam Date: 10/20/2023/12:22 Family Phys: NO DOCTOR Charge Code: 555468 Physician: [place] Order #: [id number] Dose#: 23.0mGy PROCEDURE: CT ABDOMEN/PELVIS WITH CONTRAST COMPARISON: [facility], CT, ABDOMEN/PELVIS W CON, 09/10/2018, 13:21. INDICATIONS: Abdominal pain. TECHNIQUE: After obtaining the patient's consent, CT images were created with non-ionic intravenous contrast material. All CT scans at this facility use dose modulation, iterative reconstruction, and/or weight based dosing when appropriate to reduce radiation dose to as low as reasonably achievable. IV CONTRAST: Omnipaque 350,80ml TOTAL DOSE: 23.0 CTDIvol(mGy) FINDINGS: LIVER: There is a hypodense focus in the left hepatic lobe not visualized on delayed imaging and similar to prior exam. Possibility of hemangioma is raised. BILIARY: The gallbladder is absent. Surgical clips are present in the gallbladder fossa. PANCREAS: Normal. No lesion, fluid collection, ductal dilatation, or atrophy. SPLEEN: Normal. No enlargement or focal lesion. KIDNEYS: Normal. No mass, obstruction, or calcification. ADRENALS: Normal. No mass or enlargement. AORTA/VASCULAR: Normal. No aneurysm or dissection. RETROPERITONEUM: Normal. No mass or adenopathy. BOWEL/MESENTERY: Surgical suture associated with bowel is present in the right lower abdomen. Liquid stool is present with air-fluid levels. There is no significant dilatation of bowel. Small amount of free fluid is present. No visible mass, obstruction, or bowel wall thickening. ABDOMINAL WALL: Right mid abdominal subcutaneous fat stranding is present consistent with recent surgery. URINARY BLADDER: Normal. No visible focal wall thickening, lesion, or calculus. PELVIC NODES: Normal. No adenopathy. PELVIC ORGANS: Normal. No visible mass. Pelvic organs appropriate for patient age. Continued Report - Page 2 of 2 Patient: LEELEE ZAMORA Phone#: : [phone] Age: 28 Gender: F Pt. Type: ER Account: [id number] Location: 2 Ordering: ENOCH MEDINA Exam Date: 10/20/2023/12:22 Family Phys: NO DOCTOR Charge Code: 285557 Physician: [place] Order #: [id number] Dose#: 23.0mGy BONES: Pars defects are present bilaterally at L3 and L4. Disc space narrowing is present at the L4-5. LUNG BASES: Normal. No visible pulmonary or pleural disease. OTHER: Negative. CONCLUSION: 1. There is trace free fluid in the pelvis. No other acute abdominal or pelvic abnormality is identified. 2. The gallbladder is absent. 3. Subcutaneous right-sided abdominal wall edema is present likely related to recent surgery. Dictated by: Candace Welch MD on 10/20/2023 at 12:48 Approved by: Candace Welch MD on 10/20/2023 at 12:54 Normal [facility] LIPASEon 10-20-2023 Lipase [Catalytic activity/Vol] 26.0 U/L Normal 15.0 - 78.0 [facility] Comment on above: Result Comment: *PLE ASE NOTE THAT RANGES FOR LIPASE HAVE CHANGED OF 10/09/23 DUE TO AN ASSAY UPDATE BY THE MEDICINE WORKER.THE NEW ASSAY RANGE IS 6-250 U/L, WITH A REFERENCE RANGE OF 16-77 U/L. Performed By: #### 2 07713 #### [facility],[address] [place] [address] ANES POSTPROC EVALon 024 ANES POSTPROC EVAL HNO ID: [id number] Author: Marietta Palencia MD Service: Anesthesiology Author Type: Anesthesiologist Type: Anesthesia Postprocedure Evaluation Filed: 10/14/2023 12:32 PM Note Text: POST ANESTHESIA EVALUATION NOTE : 1995 Procedure Summary Date: 10/14/23 Room / Location: [place] [address] / [place] Anesthesia Start: 09 Anesthesia Stop: 1115 Procedure: LAPAROSCOPIC CHOLECYSTECTOMY WITH GRAMS (Abdomen) Diagnosis: Calculus of gallbladder without cholecystitis without obstruction (Calculus of gallbladder without cholecystitis without obstruction [K80.20]) Surgeons: Susan Macdonald MD Responsible Provider: Marietta Palencia MD Anesthesia Type: general ASA Status: 3 Anesthesia Type: general Airway Type: ETT Last Vitals Vitals Value Taken Time BP 125/69 10/14/23 1215 Temp 36.3 ?C (97.3 ?F) 10/14/23 1115 HR SpO2 100 10/14/23 1115 Resp 22 10/14/23 1229 SpO2 99 % 10/14/23 1229 Vitals shown include unfiled device data. Post Anesthesia Patient Status Patient Evaluation: PACU. PACU/ICU Patient Condition: stable. Anticipated Disposition: phase 2 then home. Neurological Status: sleepy but arousable. Pulmonary Status: breathing comfortably on room air Airway Control: returned to baseline unsupported. Cardiovascular Status: stable. Pain Management: clinically adequate - multimodal analgesia pain management approach Postoperative Hydration: acceptable. Intraoperative Events: no significant anesthesia events Post Operative Nausea/Vomiting Status: no significant post operative nausea or vomiting Recommendation: continue current plan of care. Other Remarks: Patient upper lip swollen from laryngoscope, no cuts. Reassured patient. Anesthesia Observations No Documentation SIGNATURE: Marietta Palencia MD PATIENT NAME: Leelee Zamora DATE: October 14, 2023 TIME: 12:31 PM CSN: [id number] [facility] ANES PRE-OPon 10-14-2023 ANES PRE-OP HNO ID: [id number] Author: Marietta Palencia MD Service: Anesthesiology Author Type: Anesthesiologist Type: Anesthesia Preprocedure Evaluation Filed: 10/14/2023 9:31 AM Note Text: ANESTHESIOLOGY DAY OF SURGERY NOTE : 1995 Procedure Information Date/Time: 10/14/23 0920 Procedure: LAPAROSCOPIC CHOLECYSTECTOMY WITH GRAMS (Abdomen) - LAPAROSCOPIC CHOLECYSTECTOMY WITH GRAMS [2390] Location: [place] [address] / [place] Surgeons: Susan Macdonald MD Estimated body mass index is 36.14 kg/m? as calculated from the following: Height as of this encounter: 160 cm (5' 3). Weight as of this encounter: 92.5 kg (204 lb). Most recent hematocrit and potassium results: Hematocrit 43.4 08/05/2023 Potassium 4.4 08/05/2023 Relevant Problems CARDIO (+) Acute deep vein thrombosis (DVT) of popliteal vein of right lower extremity (HCC) (+) Acute deep vein thrombosis (DVT) of right upper extremity (HCC) (+) Liver hemangioma -RENAL (+) Liver hemangioma NEURO-PSYCH (+) History of gastroesophageal reflux (GERD) I - PHYSICAL EVALUATION AIRWAY Patient intubated: No. Tracheostomy tube not present Mallampati: II. TM distance: >3 FB. Neck ROM: full ROM without neurological symptoms. Mouth opening: adequate. Short neck: no. Thick neck: no DENTAL Dental findings: teeth intact. Additional exam findings: yes. CARDIOVASCULAR Rhythm: regular Rate: normal PULMONARY Breath sounds clear to auscultation. ABDOMINAL Obese: obesity present. II - ANESTHESIA PLAN ASA Score: 3 Anesthetic Plan: general Airway type: ETT The patient is not a current smoker. NPO Status: adequate Beta David Monitoring Plan Monitoring plan: Standard ASA. Post Procedure Analgesic Plan Postoperative analgesic plan: parenteral or oral opioids and multimodal analgesia. Informed Consent Anesthetic risks, benefits, alternatives, personnel and consent discussed: yes. Patient / Responsible Constitution Party agrees to proceed: yes Patient / Surrogate agrees to blood products: yes DNR status not reviewed with patient and/or family prior to surgery. Significant changes in the patient condition since the History and Physical, not otherwise documented in primary service progress note: no. Potential Anesthesia issues that may suggest increased risk of complications or contraindication to planned procedure: none. Vitals Value Taken Time BP 117/73 10/14/23900 Pulse 86 10/14/23900 Resp 18 10/14/23900 Temp 36.3 ?C (97.3 ?F) 10/14/23900 SpO2 100 % 10/14/23900 Facility-Administered Medications as of 10/14/2023 Medication Dose Route Frequency - lidocaine (PF) 10 mg/mL (1 %) 1-2 mg injection (XYLOCAINE) 0.1-0.2 mL INTRADERMAL PRN - lactated ringers iv infusion 5-30 mL/hr INTRAVENOUS CONTINUOUS - NaCl 0.9% iv flush bag 20 mL INTRAVENOUS PRN - [COMPLETED] famotidine 20 mg injection (PEPCID) 20 mg INTRAVENOUS ONCE - [COMPLETED] acetaminophen 1,000 mg tab(s) (TYLENOL) 1,000 mg ORAL Pre-Op Once - [COMPLETED] promethazine 12.5 mg tab(s) (PHENERGAN) 12.5 mg ORAL Pre-Op Once - scopolamine 1 mg over 3 days 1 Patch (TRANSDERM-SCOP) 1 Patch TRANSDERMAL q 72 HR And - [START ON 10/17/2023] scopolamine - REMOVE PATCH OTHER q 72 HR And - scopolamine - VERIFY patch OTHER q 8 H Outpatient Medications as of 10/14/2023 Medication Sig - topiramate (TOPAMAX) 25 mg tablet Take 1 tablet by mouth two times a day. I have interviewed and examined the patient. I have reviewed the medical record and/or the pre-anesthesia evaluation, pertinent labs, and test results. This contains updated information obtained within 48 hours of Surgery/Procedure. SIGNATURE: Marietta Palencia MD PATIENT NAME: Leelee Zamora DATE: October 14, 2023 TIME: 9:30 AM CSN: [id number] [facility] BRIEF OP NOTon 10-14-2023 BRIEF OP NOT HNO ID: [id number] Author: Susan Macdonald MD Service: General Surgery Author Type: Physician Type: Brief Op Note Filed: 10/14/2023 11:15 AM Note Text: BRIEF OPERATIVE / PROCEDURE NOTE LOG ID: [id number] SURGERY/PROCEDURE DATE: 10/14/2023 INCISION/PROCEDURE START TIME: 10:04 AM INCISION CLOSE/PROCEDURE END TIME: 11:01 AM SURGEON(S)/PROCEDURALIS T(S) AND PICTURE ENLARGER(S): Surgeon(s) and Role: * Susan Macdonald MD - Primary Physician Supervisor [employer]: Makayla Zarate PA-C SURGERY/PROCEDURE(S): Laparoscopic cholecystectomy with cholangiograms Lysis of adhesions ANESTHESIA: General FINDINGS: Intraoperative cholangiogram: Fluoro time: 8 sec Air kerma: 2.74 mGy Patient position: Supine Number of images saved: 1 Contrast used: Full strength isovue contrast was injected by the surgeon Findings: Contrast flowed through the cystic duct and opacified a normal caliber common bile duct. The duodenum filled rapidly without any filling defects. The bilateral intrahepatic bile ducts were well visualized. Impression: Normal cholangiogram Read by: Susan Macdonald MD ESTIMATED BLOOD LOSS: 10 mls SPECIMENS: gallbladder COMPLICATIONS: None CLOSURE TECHNIQUE: Primary PRE-OP/PRE-PROCEDURE DIAGNOSIS: symptomatic cholelithiasis POST-OP/POST-PROCEDURE DIAGNOSIS: Same as Preop SIGNATURE: Susan Macdonald MD PATIENT NAME: Leelee Zamora DATE: October 14, 2023 TIME: 11:13 AM [facility] HISTORY PHYSICALon HISTORY PHYSICAL HNO ID: [id number] Author: Susan Macdonald MD Service: General Surgery Author Type: Physician Type: HANDP Filed: 10/14/2023 9:35 AM Note Text: UPDATED HISTORY AND PHYSICAL EXAMINATION SERVICE DATE: 10/14/2023 SERVICE TIME: 9:35 AM PHYSICAL EXAM MUST BE COMPLETED ON ADMISSION The History and Physical (completed in the past 30 days) has been reviewed and the patient has been examined. The contents accurately reflect the patient's condition with the following additions or revisions since the HANDP was completed. Examination indicates no changes. This HANDP can be found in the Electronic Medical Record . SIGNATURE: Susan Macdonald MD PATIENT NAME: Leelee Zamora DATE: October 14, 2023 TIME: 9:35 AM [facility] NURSING PROGon 10-14-2023 NURSING PROG HNO ID: [id number] Author: Berenice Almanza RN Service: Nursing Author Type: Registered Nurse Type: Nursing Progress Note Filed: 10/14/2023 12:22 PM Note Text: Other: 1213-Pt reports swollen lip. Dr. Yung made aware. Dr. Yung to come to bedside to evaluate. 1217- Dr. Yung at bedside. Per Dr. Yung lip swelling due to oral airway. Normal [facility] OPERATIVE NOon 10-14-2023 OPERATIVE NO HNO ID: [id number] Author: SUSAN MACDONALD MD Service: General Surgery Author Type: Physician Type: Operative Report Filed: 10/16/2023 08:22 Note Text: [facility] - Operative Report LEELEE ZAMORA : 1995 AGE: 28. SEX: F PATIENT TYPE: A [facility]: [facility] LOCATION: [facility] ATTENDING PHYSICIAN: Susan Macdonald M.D. CSN NUMBER: [id number] DATE OF SURGERY/PROCEDURE: 10/14/2023 INCISION/PROCEDURE START TIME: 10:04 a.m. INCISION CLOSE/PROCEDURE END TIME: 11:01 a.m. PREOPERATIVE DIAGNOSIS: Symptomatic cholelithiasis. POSTOPERATIVE DIAGNOSIS: Symptomatic cholelithiasis. SURGEON: Susan Macdonald M.D. PICTURE ENLARGER: ODESSA Domingo. No resident was available to assist with the surgery, so a PA was utilized as a certified anesthesiologist assistant. Her role included gallbladder retraction and assistance with skin closure. SURGERY/PROCEDURE: 1. Laparoscopic cholecystectomy with intraoperative cholangiograms. 2. Lysis of adhesions. ANESTHESIA: General. FINDINGS: Normal cholangiograms. ESTIMATED BLOOD LOSS: 10 mL or less. SPECIMENS: Gallbladder. COMPLICATIONS: None. PATIENT HISTORY: Patient is a 28-year-old female, recently seen through the office with right upper quadrant pain and gallstones. This is felt to be most likely related to biliary colic and so, I recommend a laparoscopic cholecystectomy as treatment. We discussed details of the planned procedure including risks, benefits, and alternatives, and she wished to proceed. She has had previous abdominal surgery. She has had a midline laparotomy as well as an ileostomy and as well as a ventral hernia repair with mesh. DESCRIPTION OF PROCEDURE: She was brought to the operating room today following informed consent. She was placed supine on the operative room table with arms outstretched on armboards. General anesthesia was induced. The abdomen was then prepped and draped in the usual sterile manner. A 5 mm incision was made on the right side of the abdomen optically, this was placed without difficulty. The abdomen was then fully insufflated with CO2 gas. A 5 mm 0-degree scope was inserted. No signs of bowel or vascular injury were noted. It was noted that she had considerable amount of adhesions along the central portion of the abdomen, likely adherent to the mesh from her repair. I was able to then see window in the epigastric area, in which we placed a 10 mm trocar. Through this, I was unable to find another window to place another trocar in the right upper quadrant. Using these 2 trocar sites, I was then able to begin to take down some adhesions at least enough between the epigastric and the umbilical area to place the camera port. I did make a small incision in the mesh and placed a 5 mm trocar through this without difficulty. Through this process, there were no signs of bowel or vascular injury. No enterotomies were made. Most of the adhesions were in omentum. The patient was then positioned with some head up and roll to the left. The gallbladder was identified, it was reflected in a cephalad direction. The infundibulum of the gallbladder was dissected out. The cystic duct and cystic artery were both dissected out. A critical view of the safety was performed. We felt that the cystic duct and cystic artery were both being accurately identified. The duct was addressed first by placing a 10 mm clip on the gallbladder side of the cystic duct. A small ductotomy was made close to the clip. There was positive return of bile and I was then able to insert a cholangiogram catheter into this and was then able to perform cholangiograms. This showed a good opacification of the biliary tree without any obvious filling defects within the cystic duct. There was good flow into the duodenum. The catheter was then removed and then three 10 mm clips were placed across the cystic duct stump. This was then transected. The cystic artery was then dissected out. Two metallic clips were placed proximally, one was placed distally, and this too was then transected. The gallbladder was then bovied off the undersurface of the liver. I did enter the very thin gallbladder wall. At one point, did have some spillage of bile, but this was promptly suctioned out and irrigated thoroughly with 3 L of saline. At the completion of the surgery, the gallbladder was then removed from the liver bed and was placed into a bag and brought out through the 10 mm trocar site. The trocar was replaced. Next the entire abdomen and especially the right upper quadrant was copiously irrigated. This was irrigated with 3 L of saline until clear. The fascia at the 10 mm trocar site was then closed using 0 PDS with the aid of the transport pilot guide. The remaining trocars were opened up. Insufflation was allowed to escape. Local anesthetic was injected into each of the incisions. The incisions were then closed with 5-0 Vicryl. Skin glue was applied as dressing. She w (more content not included)... [facility] SURGICAL PATHOLOGYon 01-03-2 024 CASE REPORT Normal [facility] Comment on above: Order Comment: Speci men Type: BLOOD SPECIMEN Ordering Facility: [facility] Address: [address] [place] [address] Result Comment: Surg ical Pathology Report Case: [id number] Authorizing Provider: Susan Macdonald MD Collected: 10/14/2023 10:10 AM Ordering Location: [facility] Surgery Received: 10/14/2023 11:54 AM Pathologist: Karishma Schmidt MD Specimen: GALLBLADDER Performed By: #### P TGEN #### [facility] CLIA [id number] [address] [place] [address] CLINICAL HISTORY Normal [facility] Comment on above: Order Comment: Speci diogo Type: BLOOD SPECIMEN Ordering Facility: [facility] Address: [address] [place] [address] Result Comment: Pre- op diagnosis: Calculus of gallbladder without cholecystitis without obstruction [K80.20] Performed By: #### P TGEN #### [facility] CLIA [id number] [address] [place] [address] FINAL DIAGNOSIS Normal [facility] Comment on above: Order Comment: Speci diogo Type: BLOOD SPECIMEN Ordering Facility: [facility] Address: [address] [place] [address] Result Comment: Gall bladder, cholecystectomy: -Chronic cholecystitis with cholelithiasis and cholesterolosis Performed By: #### P TGEN #### [facility] CLIA [id number] [address] [place] [address] FINAL PERFORMING LAB Normal [facility] Comment on above: Order Comment: Ivoni diogo Type: BLOOD SPECIMEN Ordering Facility: [facility] Address: [address] [place] [address] Result Comment: Diag nostic interpretation performed at [facility], [address] [place] [address] CLIA# [id number] Talent Acquisition Assistant: Ariel Macias M.D. Performed By: #### P TGEN #### [facility] [place] [id number] [address] [place] [address] [place] GROSS DESCRIPTION A. GALLBLADDER Normal [facility] Comment on above: Order Comment: Speci men Type: BLOOD SPECIMEN Ordering Facility: [facility] Address: [address] [place] [address] Result Comment: Rece ived in formalin labeled gallbladder is a 4.7 x 2.4 x 1.7 cm gallbladder with attached 0.2 cm in length by 0.2 cm in diameter proximally stapled cystic duct. The serosal surface is corbett and smooth. The hepatic bed is roughened and irregular. Opening reveals a moderate amount of brown viscous bile admixed with four brown, ovoid firm calculi measuring 0.8 to 1.0 cm in greatest dimension, and 1.8 x 1.8 x 1.0 cm in aggregate. The mucosal surface is amanda and velvety and diffusely covered by chilel yellow streaks. No polyps or discrete lesions are identified. [employer] Teammate sections to include cystic duct margin are submitted in one cassette. Gross examination performed at [facility], [address] [place] [address] CLIA# [id number] [facility] 10/14/23 Performed By: #### P TGEN #### [facility] CLIA [id number] [address] [place] [address] OF [place] HISTORY PHYSICALon HISTORY PHYSICAL HNO ID: [id number] Author: Vianney Burns PA-C Service: ? Author Type: Physician Supervisor [employer] Type: HANDP Filed: 10/01/2023 5:09 PM Note Text: HISTORY AND PHYSICAL EXAMINATION SERVICE DATE: 10/01/2023 SERVICE TIME: 5:08 PM PRIMARY CARE PHYSICIAN: Roverto Diane MD REASON FOR VISIT: Leelee Zamora is a 28 year old female who is scheduled for Procedure(s) with comments: LAPAROSCOPIC CHOLECYSTECTOMY WITH GRAMS (N/A) - LAPAROSCOPIC CHOLECYSTECTOMY WITH GRAMS [2390] at the request of Dr. Susan Macdonald for consultation. My final recommendation will be communicated back to the requesting physician by way of shared medical record or letter. Subjective The patient has the following: ACTIVE PROBLEM LIST Class 2 Obesity Without Serious Comorbidity With Body Mass Index (Bmi) of 36.0 to 36.9 in Adult Vitamin D Deficiency Saman (Generalized Anxiety Disorder) History of Gastroesophageal Reflux (Gerd) Allergic Rhinitis, Unspecified Ex-Smoker Psoriasis Encounter for Insertion of Mirena IUD Acute Deep Vein Thrombosis (Dvt) of Popliteal Vein of Right Lower Extremity (Hcc) IUD (Intrauterine Device) in Place Polycystic Ovary Syndrome Obesity, Class II, Bmi 35-39.9 Liver Hemangioma Vapes Nicotine Containing Substance Acute Deep Vein Thrombosis (Dvt) of Right Upper Extremity (Hcc) COVID-19 Immunization Status Overdue - Covid-19 Vaccine (1) Never done No completion, postpone, frequency change, or communication history exists for this topic. CHIEF COMPLAINT: Pre-Op HPI: Leelee Zamora is a 28 year old female presenting for pre-anesthesia consultation. Pt has history of gallbladder disease. Above procedure recommended to manage symptoms. Procedure scheduled on 10/14/2023 at [facility]. REVIEW OF SYSTEMS: General: No weight loss, malaise or fevers. Neurological: Negative for: headaches, multiple sclerosis, Parkinson's disease, seizures and strokes. Respiratory: Positive for: tobacco use. Negative for: asthma, COPD, current cough, dyspnea, URI < 2 weeks and obstructive sleep apnea. Cardiovascular: Positive for: DVT/PE (2020 and 2021, mom has high factor 8, she has not been tested.) Negative for: AICD/PPM, anticoagulation therapy, arrhythmia, CAD, chest pain, CHF, hyperlipidemia, hypertension, recent MS, murmur/valvular heart disease, open heart surgery and valve surgery. GI: Positive for: abdominal pain (/) and GERD Negative for: dysphagia, liver disease, nausea and vomiting. : Negative for: on dialysis, dysuria, hematuria and renal failure. 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 Hematology: HHC - hereditary hemochromatosis Negative for: anemia, bruises/bleeds easily, factor V Leiden, hemophilia, thrombocytopenia, von Willebrand disease and chronic anti-coagulation/platel et meds. Oncology: No history of CA metastasis, chemo within 30 days, or radiotherapy within 90 days. No history of oncological symptoms or problems. Psych: Negative for: anxiety, bipolar disorder and depression. Musculoskeletal: Positive for: back pain. Skin: Chronic skin issues comment: - psoriasis PAST MEDICAL HISTORY Diagnosis Date Acute deep vein thrombosis (DVT) of popliteal vein of right lower extremity (HCC) 02/2022 Allergic rhinitis, unspecified 12/16/2018 Bowel obstruction (HCC) 2022 Encounter for insertion of mirena IUD 12/24/2021 Ex-smoker 12/16/2018 Started at age 19 up to 1/2-1 PPD, quit 05/2018 SAMAN (generalized anxiety disorder) 12/16/2018 [facility]. History of chlamydia 16 YO History of gastroesophageal reflux (GERD) 12/16/2018 History of morbid obesity Psoriasis 12/16/2018 Vitamin D deficiency 12/16/2018 PAST SURGICAL HISTORY Procedure Laterality Date CYST EXCISION 2016 right leg DANDC, DIAG AND/OR THERAPEUTIC 2020 EXTRACTION, ERUPTED TOOTH OR EXPOSED ROOT (ELEVATION AND/OR FORCEPS REMOVAL) 2013 LOCAL REVISION OF ILESTOMY 02/24/2022 PAST SURGICAL HISTORY OF multiplr vaginoplasty- RV fistual after FAVD AND 4th degree FAMILY HISTORY Problem Relation Age of Onset Heart disease Mother arythmia Diabetes Father Hypertension Father Kidney Disease Maternal Grandmother other (lupus) Maternal Grandmother Colon Cancer Paternal Grandmother late 50's Coronary Artery Disease Paternal Grandmother 40's Diabetes Paternal Grandmother Hypertension Paternal Grandmother Diabetes Paternal Grandfather Hypertension Paternal Grandfather Thyroid Cancer Paternal Aunt 52 Cervical Cancer Paternal Aunt Uterine Cancer Paternal Aunt Thyroid Cancer Paternal Aunt 19 resolved Alzheimer's Disease No Family History Breast Cancer No Family History Ovarian cancer No Family History Hyperlipidemia No Family History Thyroid No Family History Seizures No Family History Stroke No Family History Social (more content not included)... Normal [facility] MR Liver WO and W contrast I Von 09-15-2023 IMPRESSION: Benign liver hemangioma. Cholelithiasis. Transcribe Date/Time: Sep 15 2023 7:36A Dictated by: DARREL BRANTLEY MD This examination was interpreted and the report reviewed and electronically signed by: DARREL BRANTLEY MD on Sep 15 2023 7:42AM EST Thank you for allowing us to participate in the care of your patient. Should there be any questions regarding this interpretation, please call [phone]. If you are unable to reach us at the number above, please feel free to contact [facility] eRadiology at [phone]. DIVISION OF RADIOLOGY * * *Final Report* * * DATE OF EXAM: Sep 14 2023 4:43PM [facility] 0727 - MRI LIVER WO/W IVCON / PROCEDURE REASON: LIVER LESION * * * * Physician Interpretation * * * * RESULT: MRI OF THE ABDOMEN WITHOUT AND WITH IV CONTRAST: CLINICAL HISTORY: Indeterminate liver lesion. TECHNIQUE: Magnet: 1.5T scanner. Multiplanar MRI of the abdomen with multiple sequences, performed before and after IV contrast, utilizing liver protocol. Contrast: Intravenous: 19 ml of Dotarem COMPARISON: CT 08/05/2023 RESULT: Liver: Normal morphology. There is a 2.2 cm hemangioma in hepatic segment II. This corresponds to the indeterminate lesion reported on the 08/05/2023 CT. No additional lesion Biliary: No bile duct dilation. Cholelithiasis. Spleen: No mass. No splenomegaly. Pancreas: No mass or duct dilation. Adrenals: No mass. Kidneys: No solid or cystic mass. No hydronephrosis. GI: No dilated bowel or wall thickening along imaged segments. Mesentery/peritoneum/re troperitoneum: No ascites or mass. Lymph nodes: No abdominal lymphadenopathy. Vasculature: No abdominal aortic aneurysm. Bones/Soft Tissues: Unremarkable. Lower chest: No additional findings. DIVISION OF [facility]OLOGY [facility] * * *Final Report* * * DATE OF EXAM: Sep 14 2023 4:43PM [facility] 0727 - MRI LIVER WO/W IVCON / PROCEDURE REASON: LIVER LESION * * * * Physician Interpretation * * * * RESULT: MRI OF THE ABDOMEN WITHOUT AND WITH IV CONTRAST: CLINICAL HISTORY: Indeterminate liver lesion. TECHNIQUE: Magnet: 1.5T scanner. Multiplanar MRI of the abdomen with multiple sequences, performed before and after IV contrast, utilizing liver protocol. Contrast: Intravenous: 19 ml of Dotarem COMPARISON: CT 08/05/2023 RESULT: Liver: Normal morphology. There is a 2.2 cm hemangioma in hepatic segment II. This corresponds to the indeterminate lesion reported on the 08/05/2023 CT. No additional lesion Biliary: No bile duct dilation. Cholelithiasis. Spleen: No mass. No splenomegaly. Pancreas: No mass or duct dilation. Adrenals: No mass. Kidneys: No solid or cystic mass. No hydronephrosis. GI: No dilated bowel or wall thickening along imaged segments. Mesentery/peritoneum/re troperitoneum: No ascites or mass. Lymph nodes: No abdominal lymphadenopathy. Vasculature: No abdominal aortic aneurysm. Bones/Soft Tissues: Unremarkable. Lower chest: No additional findings. IMPRESSION IMPRESSION: Benign liver hemangioma. Cholelithiasis. Transcribe Date/Time: Sep 15 2023 7:36A Dictated by: DARREL BRANTLEY MD This examination was interpreted and the report reviewed and electronically signed by: DARREL BRANTLEY MD on Sep 15 2023 7:42AM EST Thank you for allowing us to participate in the care of your patient. Should there be any questions regarding this interpretation, please call [phone]. If you are unable to reach us at the number above, please feel free to contact [facility] eRadiology at [phone]. 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 TECHNIQUE: Sonography of the pelvis was performed by transvaginal and transabdominal (limited) techniques. Images were obtained and stored in a permanent archive. MQ: [id number] COMPARISON: CT abdomen pelvis 08/05/2023. RESULT: Uterus: -Size: 10.6 x 7.7 x 5.3 cm -Orientation: Anteverted -Endometrial echo complex: Evaluation of the endometrium was adequate. Intrauterine device appropriately positioned within the endometrial canal. The endometrial echo complex measured 0.7 cm. -Cervix: Unremarkable. -Adenomyosis assessment: There are no sonographic findings of adenomyosis. -Fibroids: There are no fibroids. Right Ovary: 3.6 x 2.7 x 1.3 cm - Normal sonographic appearance with physiologic follicles. Doppler imaging showed normal arterial and venous flow throughout the ovary. Left Ovary: 4.0 x 3.5 x 1.7 cm - Normal sonographic appearance with physiologic follicles. Doppler imaging showed normal arterial and venous flow throughout the ovary. Free Fluid: Small free fluid is likely physiologic. IMPRESSION: IUD in normal position. Normal sonographic appearance of the female pelvis. Production Leader: PSCB Transcribe Date/Time: Aug 23 2023 2:05P Dictated by : ALICIA MADRIGAL MD This examination was interpreted and the report reviewed and electronically signed by: ALICIA MADRIGAL MD on Aug 23 2023 2:07PM EST [id number] Normal [facility] US FEMALE PELVIS TRANSVAGon 08-21-2023 US FEMALE PELVIS TRANSVAG * * *Final Report* * * DATE OF EXAM: Aug 21 2023 3:46PM [facility] 1060 - US FEMALE PELVIS TRANSVAG / PROCEDURE REASON: Complication of intrauterine device (IUD), unspecified complication, initial enc * * * * Physician Interpretation * * * * EXAMINATION: TRANSVAGINAL AND LIMITED TRANSABDOMINAL FEMALE PELVIC ULTRASOUND CLINICAL HISTORY: Check IUD position. TECHNIQUE: Sonography of the pelvis was performed by transvaginal and transabdominal (limited) techniques. Images were obtained and stored in a permanent archive. MQ: [facility]_[email or web address] COMPARISON: CT abdomen pelvis 08/05/2023. RESULT: Uterus: -Size: 10.6 x 7.7 x 5.3 cm -Orientation: Anteverted -Endometrial echo complex: Evaluation of the endometrium was adequate. Intrauterine device appropriately positioned within the endometrial canal. The endometrial echo complex measured 0.7 cm. -Cervix: Unremarkable. -Adenomyosis assessment: There are no sonographic findings of adenomyosis. -Fibroids: There are no fibroids. Right Ovary: 3.6 x 2.7 x 1.3 cm - Normal sonographic appearance with physiologic follicles. Doppler imaging showed normal arterial and venous flow throughout the ovary. Left Ovary: 4.0 x 3.5 x 1.7 cm - Normal sonographic appearance with physiologic follicles. Doppler imaging showed normal arterial and venous flow throughout the ovary. Free Fluid: Small free fluid is likely physiologic. IMPRESSION: IUD in normal position. Normal sonographic appearance of the female pelvis. Production Leader: PK Transcribe Date/Time: Aug 23 2023 2:05P Dictated by : ALICIA MADRIGAL MD This examination was interpreted and the report reviewed and electronically signed by: ALICIA MADRIGAL MD on Aug 23 2023 2:07PM EST [id number] Normal [facility] CT ABD/PEL W IVCONon Radiology Result ACTIONABLE Abnormal [facility] Absolute lymphocyte countOrd ered By: Delgado Marie on 07-22-2023 Lymphocytes Auto (Unsp spec) [#/Vol] 2.24 10*3/uL 0.83-4.51 [facility] Basophil percentageOrdered B y: Delgado Marie on 07-22-2023 Basophils/100 WBC (Bld) 0.4 % 0-1 [facility] Chloride [Moles/Vol] 107 mmol/L 98-107 [facility] Eosinophils/100 WBC (Bld) 0.3 % 0-5 [facility] Glucose [Mass/Vol] 79 mg/dL 74-106 [facility] Neutrophils (Bld) [#/Vol] 6.9 10*3/uL 2.0-7.7 [facility] Neutrophils/100 WBC (Bld) 69.8 % 47-70 [facility] Potassium [Moles/Vol] 4.5 mmol/L 3.5-5.1 [facility] Comment on above: Moderate Hemolysis, Result may be falsely increased. Sodium [Moles/Vol] 138 mmol/L 136-145 [facility] WBC (Bld) [#/Vol] 9.9 10*3/uL 4.4-11.0 [facility] Basophil percentage 0 SEEN /hpf 0-5 [facility] Beta hCG serum qualOrdered B y: Delgado Marie on 07-22-2023 Beta HCG ( test) Ql Negative [facility] Bilirubin Test strip Ql (U)O rdered By: ED PROVIDER on 07-22-2023 Bilirubin Ql (U) Negative Negative [facility] Blood erythrocytes count (nu mber/volume)Ordered By: Delgado Marie on 07-22-2023 RBC (Bld) [#/Vol] 4.70 10*6/uL 4.2-5.4 [facility] Blood hemoglobin measurement (mass/volume)Ordered By: Delgado Marie on 07-22-2023 Hemoglobin (Bld) [Mass/Vol] 13.4 g/dL 12.0-15.0 [facility] Blood lymphocytes/100 leukoc ytesOrdered By: Delgado Marie on 07-22-2023 Lymphocytes/100 WBC (Bld) 22.7 % 19-41 [facility] Blood monocytes/100 leukocyt esOrdered By: Delgado Marie on 07-22-2023 Monocytes/100 WBC (Bld) 6.4 % 0-10 [facility] Blood platelet mean volumeOr dered By: Delgado Marie on 07-22-2023 Platelet mean volume (Bld) [Entitic vol] 8.3 fL 6.2-12.0 [facility] Determination of erythrocyte mean corpuscular volume (MCV)Ordered By: Delgado Marie on 07-22-2023 MCV (RBC) [Entitic vol] 88.3 fL 81-99 [facility] Hematocrit Auto (Bld) [Volum e fraction]Ordered By: Delgado Marie on 07-22-2023 Hematocrit (Bld) [Volume fraction] 41.5 % 37-47 [facility] Ketones Test strip Ql (U)Ord ered By: ED PROVIDER on 07-22-2023 Ketones Ql (U) Negative Negative [facility] Laboratory - Chemistry and C hemistry - challengeOrdered By: Delgado Marie on 07-22-2023 CO2 [Moles/Vol] 28.0 mmol/L 21.0-32.0 [facility] Urea nitrogen/Creatinine [Mass ratio] 16.4 mg/mg 10-20 [facility] - Hematology and Cell countsOrdered By: Delgado Marie on 07-22-2023 Erythrocyte distribution width (RBC) [Entitic vol] 41.3 fL 35.1-43.9 [facility] Erythrocyte distribution width (RBC) [Ratio] 12.7 % 11.6-14.6 [facility] Immature granulocytes/100 WBC (Bld) 0.400 % 0.0-0.9 [facility] Comment on above: IG% - Immature Granu locytes (promyelocytes, myelocytes and metamyelocytes) > 1% indicates that a LEFT SHIFT is Present. MCH (RBC) [Entitic mass] 28.5 pg 27.0-32.0 [facility] Nucleated RBC/100 WBC (Bld) [Ratio] 0 % 0-5 [facility] MCHC Auto (RBC) [Mass/Vol]Or dered By: Delgado Marie on 07-22-2023 MCHC (RBC) [Mass/Vol] 32.3 g/dL 32-36 [facility] Mucus LM Ql (Urine sed)Order ed By: Delgado Marie on 07-22-2023 Mucus Ql (Urine sed) 0 SEEN /hpf [facility] Nitrite Test strip Ql (U)Ord ered By: ED PROVIDER on 07-22-2023 Nitrite Ql (U) Negative Negative [facility] No Panel InformationOrdered By: Delgado Marie on 07-22-2023 Estimated Creatinine Clearance Calc 108.60 ml/min [facility] Estimated GFR (MDRD) Amer 151 mL/min >60 [facility] Comment on above: GFR Calc Estimated GFR (MDRD) Non-Af Amer 124 mL/min >60 [facility] Comment on above: Non- GFR Calc Platelets bldOrdered By: Chevy Marie on 07-22-2023 Platelets (Bld) [#/Vol] 262 10*3/uL 150-450 [facility] Protein Test strip Ql (U)Ord ered By: ED PROVIDER on 07-22-2023 Protein Ql (U) 15 mg/dl Negative [facility] Serum or plasma calcium jay urement (mass/volume)Ordered By: Delgado Marie on 07-22-2023 Calcium [Mass/Vol] 8.7 mg/dL 8.5-10.1 [facility] Serum or plasma creatinine m easurement (mass/volume)Ordered By: Delgado Marie on 07-22-2023 Creatinine [Mass/Vol] 0.61 mg/dL 0.55-1.02 [facility] Comment on above: The validity of the calculated GFR & GFRAA in patients over 70 years has not been determined. Clinical correlation is essential. Serum or plasma urea nitroge n measurement (mass/volume)Ordered By: Delgado Marie on 07-22-2023 Urea nitrogen [Mass/Vol] 10 mg/dL 7-18 [facility] Squamous epithelial cells de tection in urine sediment by light microscopyOrdered By: Delgado Marie on 07-22-2023 Epithelial cells.squamous LM Ql (Urine sed) 0-5 SEEN /hpf 5-10 [facility] Thin prep Papanicolaou smear with manual screeningOrdered By: Delgado Marie on 07-22-2023 Thin prep Papanicolaou smear with manual screening 3 5-15 [facility] Urine blood detectionOrdered By: ED PROVIDER on 07-22-2023 RBC Ql (U) Negative Negative [facility] Urine blood detectionOrdered By: Delgado Marie on 07-22-2023 RBC Ql (U) 0 SEEN /hpf 0-5 [facility] Urine clarityOrdered By: ED PROVIDER on 07-22-2023 Clarity (U) Clear Clear [facility] Urine color determinationOrd ered By: ED PROVIDER on 07-22-2023 Color (U) Yellow Yellow [facility] Urine glucose detectionOrder ed By: ED PROVIDER on 07-22-2023 Glucose Ql (U) Normal mg/dl Normal [facility] Urine leukocyte esterase det ection by dipstickOrdered By: ED PROVIDER on 07-22-2023 Leukocyte esterase Test strip Ql (U) 25 /ul Negative [facility] Urine pHOrdered By: ED PROVI RICKI on 07-22-2023 pH (U) 7.0 [pH] 5.0 - 8.0 [facility] Urine sediment bacteria coun t by microscopy (number/high power field)Ordered By: Delgado Marie on 07-22-2023 Bacteria LM.HPF (Urine sed) [#/Area] 0 /[HPF] None Seen [facility] Urine specific gravity measu rementOrdered By: ED PROVIDER on 07-22-2023 Specific gravity (U) [Rel density] 1.010 1.002-1.030 [facility] Urobilinogen Auto test strip Ql (U)Ordered By: ED PROVIDER on 07-22-2023 Urobilinogen Ql (U) Normal mg/dl Normal [facility] HbA1c (Bld)on 06-23-2023 Average glucose Estimated from glycated hemoglobin (Bld) [Mass/Vol] 103 mg/dL [facility] HbA1c (Bld) [Mass fraction] 5.2 % 4.3 - 5.6 % [facility] UA DIP, URINE (POC)on 2022 BILIRUBIN UA (POCT) Negative Negative [facility] CLARITY UA (POCT) Clear [facility] COLOR UA (POCT) Yellow [facility] GLUCOSE UA (POCT) Negative Negative mg/dL [facility] Hemoglobin Ql (U) Negative Negative [facility] KETONE UA (POCT) Negative Negative mg/[facility] LEUKOCYTES UA (POCT) Negative Negative [facility] NITRITE UA (POCT) Negative Negative [facility] PH UA (POCT) 6.0 4.5 - 8.0 [facility] Protein Ql (U) Negative Negative mg/dL [facility] SPECIFIC GRAVITY UA (POCT) >=1.030 1.005 - 1.030 [facility] UROBILINOGEN UA (POCT) 0.2 E.U./dL Normal E.U./dL [facility] Absolute lymphocyte countOrd ered By: Christofer Ondina on 05-19-2023 Lymphocytes Auto (Unsp spec) [#/Vol] 2.44 10*3/uL 0.83-4.51 [facility] Basophil percentageOrdered B y: Christofer Morganjed on 05-19-2023 Basophil percentage 2.7 mg/dL 2.5-4.9 [facility] Basophils/100 WBC (Bld) 0.2 % 0-1 [facility] Chloride [Moles/Vol] 111 mmol/L 98-107 [facility] Eosinophils/100 WBC (Bld) 0.7 % 0-5 [facility] Glucose [Mass/Vol] 87 mg/dL 74-106 [facility] Neutrophils (Bld) [#/Vol] 5.2 10*3/uL 2.0-7.7 [facility] Neutrophils/100 WBC (Bld) 62.9 % 47-70 [facility] Potassium [Moles/Vol] 3.8 mmol/L 3.5-5.1 [facility] Sodium [Moles/Vol] 140 mmol/L 136-145 [facility] WBC (Bld) [#/Vol] 8.3 10*3/uL 4.4-11.0 [facility] Blood erythrocytes count (nu mber/volume)Ordered By: Christofer Nj on 05-19-2023 RBC (Bld) [#/Vol] 4.23 10*6/uL 4.2-5.4 [facility] Blood hemoglobin measurement (mass/volume)Ordered By: Christofer Nj on 05-19-2023 Hemoglobin (Bld) [Mass/Vol] 12.1 g/dL 12.0-15.0 [facility] Blood lymphocytes/100 leukoc ytesOrdered By: Christofer Nj on 05-19-2023 Lymphocytes/100 WBC (Bld) 29.5 % 19-41 [facility] Blood monocytes/100 leukocyt esOrdered By: Christofer Nj on 05-19-2023 Monocytes/100 WBC (Bld) 6.5 % 0-10 [facility] Blood platelet mean volumeOr dered By: Christofer Nj on 05-19-2023 Platelet mean volume (Bld) [Entitic vol] 8.6 fL 6.2-12.0 [facility] Determination of erythrocyte mean corpuscular volume (MCV)Ordered By: Christofer Nj on 05-19-2023 MCV (RBC) [Entitic vol] 88.4 fL 81-99 [facility] Hematocrit Auto (Bld) [Volum e fraction]Ordered By: Christofer Nj on 05-19-2023 Hematocrit (Bld) [Volume fraction] 37.4 % 37-47 [facility] Laboratory - Chemistry and C hemistry - challengeOrdered By: Christofer Nj on 05-19-2023 CO2 [Moles/Vol] 25.0 mmol/L 21.0-32.0 [facility] Magnesium [Mass/Vol] 2.0 mg/dL 1.6-2.6 [facility] Urea nitrogen/Creatinine [Mass ratio] 14.0 mg/mg 10-20 [facility] - Hematology and Cell countsOrdered By: Christofer Nj on 05-19-2023 Erythrocyte distribution width (RBC) [Entitic vol] 46.5 fL 35.1-43.9 [facility] Erythrocyte distribution width (RBC) [Ratio] 14.3 % 11.6-14.6 [facility] Immature granulocytes/100 WBC (Bld) 0.200 % 0.0-0.9 [facility] Comment on above: IG% - Immature Granu locytes (promyelocytes, myelocytes and metamyelocytes) > 1% indicates that a LEFT SHIFT is Present. MCH (RBC) [Entitic mass] 28.6 pg 27.0-32.0 [facility] Nucleated RBC/100 WBC (Bld) [Ratio] 0 % 0-5 [facility] MCHC Auto (RBC) [Mass/Vol]Or dered By: Christofer Nj on 05-19-2023 MCHC (RBC) [Mass/Vol] 32.4 g/dL 32-36 [facility] No Panel InformationOrdered By: Christofer Nj on 05-19-2023 Estimated Creatinine Clearance Calc 196.49 ml/min [facility] Estimated GFR (MDRD) Amer 225 mL/min >60 [facility] Comment on above: GFR Calc Estimated GFR (MDRD) Non-Af Amer 186 mL/min >60 [facility] Comment on above: Non- GFR Calc Platelets bldOrdered By: Contreras Nj on 05-19-2023 Platelets (Bld) [#/Vol] 226 10*3/uL 150-450 [facility] Serum or plasma calcium jay urement (mass/volume)Ordered By: Christofer Nj on 05-19-2023 Calcium [Mass/Vol] 7.9 mg/dL 8.5-10.1 [facility] Serum or plasma creatinine m easurement (mass/volume)Ordered By: Christofer Nj on 05-19-2023 Creatinine [Mass/Vol] 0.43 mg/dL 0.55-1.02 [facility] Comment on above: The validity of the calculated GFR & GFRAA in patients over 70 years has not been determined. Clinical correlation is essential. Serum or plasma urea nitroge n measurement (mass/volume)Ordered By: Christofer Nj on 05-19-2023 Urea nitrogen [Mass/Vol] 6 mg/dL 7-18 [facility] Thin prep Papanicolaou smear with manual screeningOrdered By: Christofer Nj on 05-19-2023 Thin prep Papanicolaou smear with manual screening 4 5-15 [facility] Absolute lymphocyte countOrd ered By: Zac Courtney on 05-18-2023 Lymphocytes Auto (Unsp spec) [#/Vol] 1.63 10*3/uL 0.83-4.51 [facility] Basophil percentageOrdered B y: Christofer Nj on 05-18-2023 Basophil percentage 0 SEEN /hpf 0-5 [facility] Basophil percentageOrdered B y: Zca Courtney on 05-18-2023 Basophils/100 WBC (Bld) 0.4 % 0-1 [facility] Bilirubin [Mass/Vol] 1.20 mg/dL 0.20-1.00 [facility] Comment on above: For patients on eltr ombopag therapy, use of Dimension [place] TBIL is not recommended. Chloride [Moles/Vol] 107 mmol/L 98-107 [facility] Eosinophils/100 WBC (Bld) 0.5 % 0-5 [facility] Glucose [Mass/Vol] 102 mg/dL 74-106 [facility] Comment on above: Fasting Glucose resu lt from 100 to 125 mg/dL suggests IMPAIRED HOMEOSTASIS per A.D.A. criteria. Neutrophils (Bld) [#/Vol] 8.6 10*3/uL 2.0-7.7 [facility] Neutrophils/100 WBC (Bld) 77.8 % 47-70 [facility] Potassium [Moles/Vol] 4.6 mmol/L 3.5-5.1 [facility] Protein [Mass/Vol] 7.4 g/dL 6.4-8.2 [facility] Sodium [Moles/Vol] 139 mmol/L 136-145 [facility] WBC (Bld) [#/Vol] 11.1 10*3/uL 4.4-11.0 [facility] Beta hCG serum qualOrdered B y: Zac Courtney on 05-18-2023 Beta HCG ( test) Ql Negative [facility] Bilirubin Test strip Ql (U)O rdered By: Christofer Nj on 05-18-2023 Bilirubin Ql (U) Negative Negative [facility] Blood erythrocytes count (nu mber/volume)Ordered By: Zac Courtney on 05-18-2023 RBC (Bld) [#/Vol] 4.84 10*6/uL 4.2-5.4 [facility] Blood hemoglobin measurement (mass/volume)Ordered By: Zac Courtney on 05-18-2023 Hemoglobin (Bld) [Mass/Vol] 13.7 g/dL 12.0-15.0 [facility] Blood lymphocytes/100 leukoc ytesOrdered By: Zac Courtney on 05-18-2023 Lymphocytes/100 WBC (Bld) 14.8 % 19-41 [facility] Blood monocytes/100 leukocyt esOrdered By: Zac Courtney on 05-18-2023 Monocytes/100 WBC (Bld) 6.0 % 0-10 [facility] Blood platelet mean volumeOr dered By: Zac Courtney on 05-18-2023 Platelet mean volume (Bld) [Entitic vol] 8.7 fL 6.2-12.0 [facility] Determination of erythrocyte mean corpuscular volume (MCV)Ordered By: Zac Courtney on 05-18-2023 MCV (RBC) [Entitic vol] 90.9 fL 81-99 [facility] Hematocrit Auto (Bld) [Volum e fraction]Ordered By: Zac Courtney on 05-18-2023 Hematocrit (Bld) [Volume fraction] 44.0 % 37-47 [facility] Ketones Test strip Ql (U)Ord ered By: Christofer Nj on 05-18-2023 Ketones Ql (U) Negative Negative [facility] Laboratory - Chemistry and C hemistry - challengeOrdered By: Zac Courtney on 05-18-2023 ALP [Catalytic activity/Vol] 66 U/L 45-117 [facility] ALT [Catalytic activity/Vol] 24 U/L 13-56 [facility] CO2 [Moles/Vol] 30.0 mmol/L 21.0-32.0 [facility] Globulin (S) [Mass/Vol] 3.9 g/dL 2.2-4.2 [facility] Lipase [Catalytic activity/Vol] 35 U/L 13-75 [facility] Comment on above: Please note:LIPASE r evised reference range effective 23. New Lipase methodology. Expected to produce lower values than the previous assay method. NEW Reference Range: 13 - 75 U/L Urea nitrogen/Creatinine [Mass ratio] 20.1 mg/mg 10-20 [facility] - Hematology and Cell countsOrdered By: Zac Courtney on 05-18-2023 Erythrocyte distribution width (RBC) [Entitic vol] 47.6 fL 35.1-43.9 [facility] Erythrocyte distribution width (RBC) [Ratio] 14.3 % 11.6-14.6 [facility] Immature granulocytes/100 WBC (Bld) 0.500 % 0.0-0.9 [facility] Comment on above: IG% - Immature Granu locytes (promyelocytes, myelocytes and metamyelocytes) > 1% indicates that a LEFT SHIFT is Present. MCH (RBC) [Entitic mass] 28.3 pg 27.0-32.0 [facility] Nucleated RBC/100 WBC (Bld) [Ratio] 0 % 0-5 [facility] MCHC Auto (RBC) [Mass/Vol]Or dered By: Zac Courtney on 05-18-2023 MCHC (RBC) [Mass/Vol] 31.1 g/dL 32-36 [facility] Mucus LM Ql (Urine sed)Order ed By: Christofer Nj on 05-18-2023 Mucus Ql (Urine sed) 0 SEEN /hpf [facility] Nitrite Test strip Ql (U)Ord ered By: Christofer Nj on 05-18-2023 Nitrite Ql (U) Negative Negative [facility] No Panel InformationOrdered By: Zac Courtney on 05-18-2023 Estimated Creatinine Clearance Calc 129.98 ml/min [facility] Estimated GFR (MDRD) Amer 141 mL/min >60 [facility] Comment on above: GFR Calc Estimated GFR (MDRD) Non-Af Amer 116 mL/min >60 [facility] Comment on above: Non- GFR Calc Platelets bldOrdered By: Stoney Courtney on 05-18-2023 Platelets (Bld) [#/Vol] 299 10*3/uL 150-450 [facility] Protein Test strip Ql (U)Ord ered By: Christofer Nj on 05-18-2023 Protein Ql (U) 15 mg/dl Negative [facility] Serum or plasma albumin jay urement (mass/volume)Ordered By: Zac Courtney on 05-18-2023 Albumin [Mass/Vol] 3.5 g/dL 3.2-5.0 [facility] Serum or plasma albumin/glob ulin mass ratioOrdered By: Zac Courtney on 05-18-2023 Albumin/Globulin [Mass ratio] 0.9 {ratio} 0.9-2.4 [facility] Serum or plasma calcium jay urement (mass/volume)Ordered By: Zac Courtney on 05-18-2023 Calcium [Mass/Vol] 9.1 mg/dL 8.5-10.1 [facility] Serum or plasma creatinine m easurement (mass/volume)Ordered By: Zac Courtney on 05-18-2023 Creatinine [Mass/Vol] 0.65 mg/dL 0.55-1.02 [facility] Comment on above: The validity of the calculated GFR & GFRAA in patients over 70 years has not been determined. Clinical correlation is essential. Serum or plasma urea nitroge n measurement (mass/volume)Ordered By: Zac Courtney on 05-18-2023 Urea nitrogen [Mass/Vol] 13 mg/dL 7-18 [facility] Squamous epithelial cells de tection in urine sediment by light microscopyOrdered By: Christofer Nj on 05-18-2023 Epithelial cells.squamous LM Ql (Urine sed) 0 SEEN /hpf 5-10 [facility] Thin prep Papanicolaou smear with manual screeningOrdered By: Zac Courtney on 05-18-2023 Thin prep Papanicolaou smear with manual screening 7 U/L 15-37 [facility] Thin prep Papanicolaou smear with manual screening 2 5-15 [facility] Urine blood detectionOrdered By: Christofer Nj on 05-18-2023 RBC Ql (U) Negative Negative [facility] RBC Ql (U) 0 SEEN /hpf 0-5 [facility] Urine clarityOrdered By: Contreras Nj on 05-18-2023 Clarity (U) Sl. Cloudy Clear [facility] Urine color determinationOrd ered By: Christofer Nj on 05-18-2023 Color (U) Yellow Yellow [facility] Urine glucose detectionOrder ed By: Christofer Nj on 05-18-2023 Glucose Ql (U) Normal mg/dl Normal [facility] Urine leukocyte esterase det ection by dipstickOrdered By: Christofer Nj on 05-18-2023 Leukocyte esterase Test strip Ql (U) 25 /ul Negative [facility] Urine pHOrdered By: Christofer Nj on 05-18-2023 pH (U) 7.0 [pH] 5.0 - 8.0 [facility] Urine sediment bacteria coun t by microscopy (number/high power field)Ordered By: Christofer Nj on 05-18-2023 Bacteria LM.HPF (Urine sed) [#/Area] 0 /[HPF] None Seen [facility] Urine specific gravity measu rementOrdered By: Christofer Nj on 05-18-2023 Specific gravity (U) [Rel density] 1.010 1.002-1.030 [facility] Urobilinogen Auto test strip Ql (U)Ordered By: Christofer Nj on 05-18-2023 Urobilinogen Ql (U) Normal mg/dl Normal [facility] UA DIP, URINE (POC)on 2022 BILIRUBIN UA (POCT) Negative Negative [facility] CLARITY UA (POCT) Clear [facility] COLOR UA (POCT) Yellow [facility] GLUCOSE UA (POCT) Negative Negative mg/dL [facility] HEMOGLOBIN/BLOOD UA (POCT) Large Abnormal Negative [facility] KETONE UA (POCT) Negative Negative mg/dL [facility] LEUKOCYTES UA (POCT) Small Abnormal Negative [facility] NITRITE UA (POCT) Negative Negative [facility] PH UA (POCT) 7.0 4.5 - 8.0 [facility] Protein Ql (U) Negative Negative mg/dL [facility] SPECIFIC GRAVITY UA (POCT) 1.010 1.005 - 1.030 [facility] UROBILINOGEN UA (POCT) 0.2 E.U./dL Normal E.U./dL [facility] Absolute lymphocyte countOrd ered By: Zac Courtney on 04-30-2023 Lymphocytes Auto (Unsp spec) [#/Vol] 1.42 10*3/uL 0.83-4.51 [facility] Basophil percentageOrdered B y: Zac Courtney on 04-30-2023 Basophils/100 WBC (Bld) 0.3 % 0-1 [facility] Chloride [Moles/Vol] 107 mmol/L 98-107 [facility] Eosinophils/100 WBC (Bld) 0.3 % 0-5 [facility] Glucose [Mass/Vol] 102 mg/dL 74-106 [facility] Comment on above: Fasting Glucose resu lt from 100 to 125 mg/dL suggests IMPAIRED HOMEOSTASIS per A.D.A. criteria. Neutrophils (Bld) [#/Vol] 5.3 10*3/uL 2.0-7.7 [facility] Neutrophils/100 WBC (Bld) 72.9 % 47-70 [facility] Potassium [Moles/Vol] 3.4 mmol/L 3.5-5.1 [facility] Sodium [Moles/Vol] 140 mmol/L 136-145 [facility] WBC (Bld) [#/Vol] 7.2 10*3/uL 4.4-11.0 [facility] Beta hCG serum qualOrdered B y: Zac Courtney on 04-30-2023 Beta HCG ( test) Ql Negative [facility] Blood erythrocytes count (nu mber/volume)Ordered By: Zac Courtney on 04-30-2023 RBC (Bld) [#/Vol] 4.78 10*6/uL 4.2-5.4 [facility] Blood hemoglobin measurement (mass/volume)Ordered By: Zac Courtney on 04-30-2023 Hemoglobin (Bld) [Mass/Vol] 14.0 g/dL 12.0-15.0 [facility] Blood lymphocytes/100 leukoc ytesOrdered By: Zac Courtney on 04-30-2023 Lymphocytes/100 WBC (Bld) 19.7 % 19-41 [facility] Blood monocytes/100 leukocyt esOrdered By: Zac Courtney on 04-30-2023 Monocytes/100 WBC (Bld) 6.4 % 0-10 [facility] Blood platelet mean volumeOr dered By: Zac Courtney on 04-30-2023 Platelet mean volume (Bld) [Entitic vol] 8.3 fL 6.2-12.0 [facility] COVID-19 virus antigen assay Ordered By: Zac Courtney on 04-30-2023 SARS-CoV-2 (COVID-19) Ag IA.rapid Ql (Resp) [facility] SARS-CoV-2 (COVID-19) Ag IA.rapid Ql (Resp) [facility] Determination of erythrocyte mean corpuscular volume (MCV)Ordered By: Zac Courtney on 04-30-2023 MCV (RBC) [Entitic vol] 88.3 fL 81-99 [facility] Hematocrit Auto (Bld) [Volum e fraction]Ordered By: Zac Courtney on 04-30-2023 Hematocrit (Bld) [Volume fraction] 42.2 % 37-47 [facility] - Chemistry and C hemistry - challengeOrdered By: Zac Courtney on 04-30-2023 CO2 [Moles/Vol] 29.0 mmol/L 21.0-32.0 [facility] Urea nitrogen/Creatinine [Mass ratio] 8.8 mg/mg 07-31 [facility] - Drug toxicology Ordered By: Zac Courtney on 04-30-2023 Amphetamines Ql (U) Positive <1000 ng/mL [facility] Benzodiazepines Ql (U) Negative < 200 ng/mL [facility] Cannabinoids Screen Ql (U) Negative < 50 ng/mL [facility] Cocaine Ql (U) Negative < 300 ng/mL [facility] Opiates Ql (U) Negative < 300 ng/mL [facility] - Hematology and Cell countsOrdered By: Zac Courtney on 04-30-2023 Erythrocyte distribution width (RBC) [Entitic vol] 46.7 fL 35.1-43.9 [facility] Erythrocyte distribution width (RBC) [Ratio] 14.4 % 11.6-14.6 [facility] Immature granulocytes/100 WBC (Bld) 0.400 % 0.0-0.9 [facility] Comment on above: IG% - Immature Granu locytes (promyelocytes, myelocytes and metamyelocytes) > 1% indicates that a LEFT SHIFT is Present. MCH (RBC) [Entitic mass] 29.3 pg 27.0-32.0 [facility] Nucleated RBC/100 WBC (Bld) [Ratio] 0 % 0-5 [facility] Auto (RBC) [Mass/Vol]Or dered By: Zac Courtney on 04-30-2023 MCHC (RBC) [Mass/Vol] 33.2 g/dL 32-36 [facility] No Panel InformationOrdered By: Zac Courtney on 04-30-2023 MDMA (Ecstasy) Screen Negative < 500 ng/mL [facility] Urine Barbiturates Screen Negative < 200 ng/mL [facility] Urine Drug Screen Comment [facility] Comment on above: CONFIRMATORY TESTING FOR ALL POSITIVE URINE DRUG SCREENRESULTS WILL ONLY BE SENT OUT UPON PHYSICIAN ORDER. VISTA Urine Drug Screen methods provide only preliminaryanalytical test results. A more specific alternate chemicalmethod must be used in order to obtain a confirmedanalytical result. Gas chromatography/mass spectrometery(GC/MS) is the preferred confirmatory method. Clinicalconsideration and professional judgement should be appliedto any drug of abuse test result, particularly whenpreliminary positive results are used. URINE TCA TESTING MUST BE ORDERED SEPARATELY. USE TESTMNEMONIC: [facility] Urine Methadone Screen Negative < 300 ng/mL [facility] Estimated Creatinine Clearance Calc 106.36 ml/min [facility] Estimated GFR (MDRD) Amer 133 mL/min >60 [facility] Comment on above: GFR Calc Estimated GFR (MDRD) Non-Af Amer 110 mL/min >60 [facility] Comment on above: Non- GFR Calc Ethyl Alcohol Level < 3.0 mg/dL [facility] Comment on above: The serum:whole bloo d ethanol ratio is approximately 1.14and varies slightly with hematocrit. Medical Alcohol reference interval and critical value innon-tolerant individuals; 50 - 100 Impairment 100 Intoxication 100 - 250 Severe Poisoning 250 - 400 Deep/possible fatal coma Platelets bldOrdered By: Stoney Courtney on 04-30-2023 Platelets (Bld) [#/Vol] 265 10*3/uL 150-450 [facility] Serum or plasma calcium jay urement (mass/volume)Ordered By: Zac Courtney on 04-30-2023 Calcium [Mass/Vol] 8.9 mg/dL 8.5-10.1 [facility] Serum or plasma creatinine m easurement (mass/volume)Ordered By: Zac Courtney on 04-30-2023 Creatinine [Mass/Vol] 0.68 mg/dL 0.55-1.02 [facility] Comment on above: The validity of the calculated GFR & GFRAA in patients over 70 years has not been determined. Clinical correlation is essential. Serum or plasma urea nitroge n measurement (mass/volume)Ordered By: Zac Courtney on 04-30-2023 Urea nitrogen [Mass/Vol] 6 mg/dL 7-18 [facility] Thin prep Papanicolaou smear with manual screeningOrdered By: Zac Courtney on 04-30-2023 Thin prep Papanicolaou smear with manual screening 4 5-15 [facility] Urine phencyclidine (PCP) de tectionOrdered By: Zac Courtney on 04-30-2023 Phencyclidine Ql (U) Negative < 25 ng/mL [facility] UA DIP, URINE (POC)on 2022 BILIRUBIN UA (POCT) Negative Negative [facility] CLARITY UA (POCT) [facility] COLOR UA (POCT) Dark yellow [facility] GLUCOSE UA (POCT) Negative Negative mg/dL [facility] HEMOGLOBIN/BLOOD UA (POCT) Moderate Abnormal Negative [facility] KETONE UA (POCT) Trace Negative mg/dL [facility] LEUKOCYTES UA (POCT) Small Abnormal Negative [facility] NITRITE UA (POCT) Negative Negative [facility] PH UA (POCT) 5.5 4.5 - 8.0 [facility] Protein Ql (U) Trace Abnormal Negative mg/dL [facility] SPECIFIC GRAVITY UA (POCT) 1.025 1.005 - 1.030 [facility] UROBILINOGEN UA (POCT) 1.0 E.U./dL Normal E.U./dL [facility] PAP TESTon 03-18-2023 Case Report Gynecologic Cytology Report Case: [id number] Authorizing Provider: Humberto Schultz MD Collected: 03/12/2023 11:38 AM Ordering Location: Obstetrics/Gynecology Received: 03/12/2023 02:06 PM First Screen: Mirta Chen, CT, ASCP Specimen: Pap Test, ThinPrep, Cervix [facility] Clinical History Intra U[facility]ine [facility] Cyt[facility] Interpretation Negative [facility] FINAL DIAGNOSIS A - Cervix Satisfactory for interpretation, No endocervical component Negative for Intraepithelial lesion or malignancy. [facility] HPV Reflex HPV if ASCUS [facility] LMP 02/03/2023 [facility] Pap Disclaimer The Pap Smear is a screening test for cervical cancer. False negative results occur with all screening tests, emphasizing the need for rescreening at recommended intervals, and clinical correlation. [facility] PAP Clam Shucking Machine Tender Comment This specimen has be en analyzed by the ThinPrep Imaging System, an automated imaging and review system, which assists the laboratory in evaluating cells on ThinPrep Pap tests. Following automated imaging, selected rosales from every slide are reviewed by a assistant athletic trainer. [facility] Performing Lab Technical component, assistant athletic trainer screening performed at [facility], [address], [facility] [address] CLIA# [id number] Diagnostic interpretation performed at [facility], [address], [facility] [address] CLIA# [id number] Talent Acquisition Assistant: Ariel Macias M.D. [facility] XR SHOULDER GENERAL 3V OR MO RE AP/TRUE AP/OTHER LEFTon 02-12-2023 [facility] XR Shoulder - left 3 Viewson 02-12-2023 IMPRESSION: Negative 3 views of the left shoulder. Production Leader: PK Transcribe Date/Time: Feb 12 2023 3:24P Dictated by : ALIREZA HEARN MD This examination was interpreted and the report reviewed and electronically signed by: ALIREZA HEARN MD on Feb 12 2023 3:28PM [facility] DIVISION OF RADIOLOGY * * *Final Report* * * DATE OF EXAM: Feb 12 2023 3:06PM WOX 5252 - XR SHLDR >/=3V AP/AYALA AP/OTHR LT / PROCEDURE REASON: Acute pain of left shoulder * * * * Physician Interpretation * * * * EXAM TITLE: XR SHLDR >/=3V AP/AYALA AP/OTHR LT EXAM DATE/TIME: 02/12/2023 3:06 PM COMPARISON: None. CLINICAL INDICATION/HISTORY: Shoulder pain. TECHNIQUE: AP, true AP and Y views of the left shoulder are presented FINDINGS: No fractures or subluxations are noted. The acromioclavicular and glenohumeral joint spaces are well preserved. Normal acromiohumeral interval. The mineralization of the bones is normal. There is no significant soft tissue swelling. DIVISION OF RADIOLOGY Provider, Kayelne Darden - 02/12/2023 * * *Final Report* * * DATE OF EXAM: Feb 12 2023 3:06PM WOX 5252 - XR SHLDR >/=3V AP/AYALA AP/OTHR LT / PROCEDURE REASON: Acute pain of left shoulder * * * * Physician Interpretation * * * * EXAM TITLE: XR SHLDR >/=3V AP/AYALA AP/OTHR LT EXAM DATE/TIME: 02/12/2023 3:06 PM COMPARISON: None. CLINICAL INDICATION/HISTORY: Shoulder pain. TECHNIQUE: AP, true AP and Y views of the left shoulder are presented FINDINGS: No fractures or subluxations are noted. The acromioclavicular and glenohumeral joint spaces are well preserved. Normal acromiohumeral interval. The mineralization of the bones is normal. There is no significant soft tissue swelling. IMPRESSION IMPRESSION: Negative 3 views of the left shoulder. Production Leader: PSCB Transcribe Date/Time: Feb 12 2023 3:24P Dictated by : ALIREZA HEARN MD This examination was interpreted and the report reviewed and electronically signed by: ALIREZA HEARN MD on Feb 12 2023 3:28PM EST [facility] Radiology Study observation (narrative) [facility] XR Shoulder - left 3 ViewsOr dered By: Ccf Provider on 02-12-2023 [facility] XR CHEST 2V FRONTAL/LATon [facility] XR Chest PA and Lateralon IMPRESSION: No acute radiographic abnormality. Production Leader: PSCB Transcribe Date/Time: Dec 10 2022 12:36P Dictated by : HELENE ALEXANDER MD This examination was interpreted and the report reviewed and electronically signed by: HELENE ALEXANDER MD on Dec 10 2022 12:39PM [facility] DIVISION OF RADIOLOGY * * *Final Report* * * DATE OF EXAM: Dec 10 2022 12:31PM WOX 5291 - XR CHEST 2V FRONTAL/LAT / PROCEDURE REASON: Bronchitis * * * * Physician Interpretation * * * * EXAMINATION: CHEST RADIOGRAPH (2 VIEW FRONTAL & LATERAL) CLINICAL HISTORY: Bronchitis MQ: XC2_6 EXAM DATE/TIME: 12/10/2022 12:31 PM COMPARISON: No relevant prior studies available. RESULT: Lines, tubes, and devices: None. Lungs and pleura: No consolidation. No lung mass. No pleural effusion. No pneumothorax. Cardiomediastinal silhouette: Normal cardiomediastinal silhouette. Bones and soft tissues: Unremarkable. DIVISION OF RADIOLOGY Provider, [facility] - 12/10/2022 * * *Final Report* * * DATE OF EXAM: Dec 10 2022 12:31PM WOX 5291 - XR CHEST 2V FRONTAL/LAT / PROCEDURE REASON: Bronchitis * * * * Physician Interpretation * * * * EXAMINATION: CHEST RADIOGRAPH (2 VIEW FRONTAL & LATERAL) CLINICAL HISTORY: Bronchitis MQ: XC2_6 EXAM DATE/TIME: 12/10/2022 12:31 PM COMPARISON: No relevant prior studies available. RESULT: Lines, tubes, and devices: None. Lungs and pleura: No consolidation. No lung mass. No pleural effusion. No pneumothorax. Cardiomediastinal silhouette: Normal cardiomediastinal silhouette. Bones and soft tissues: Unremarkable. IMPRESSION IMPRESSION: No acute radiographic abnormality. Production Leader: PSCAshvin Transcribe Date/Time: Dec 10 2022 12:36P Dictated by : HELENE ALEXANDER MD This examination was interpreted and the report reviewed and electronically signed by: HELENE ALEXANDER MD on Dec 10 2022 12:39PM EST [facility] Radiology Study observation (narrative) [facility] XR Chest PA and LateralOrder ed By: Ccf Provider on 12-10-2022 [facility] LABORATORYOrdered By: Karuna Julio on 10-01-2022 Beta HCG ( test) Ql (U) Negative (10/01/22 9:25 AM) [facility] Work Phone: .Auto Diffon 09-24-2022 Basophil, Absolute 0.0 10 3/mcL Normal 0.0-0.3 [facility] ([place]) Comment on above: Performed By: #### C BC, ADIFF, CMP, PHOS, MG, GFR, ANEU #### [address] [address] Basophils/100 WBC (Bld) 0.3 % Normal 0.0-2.5 [facility] ([place]) Comment on above: Performed By: #### C BC, ADIFF, CMP, PHOS, MG, GFR, ANEU #### [address] [address] Eosinophil, Absolute 0.1 10 3/mcL Normal 0.0-0.7 [facility] ([place]) Comment on above: Performed By: #### C BC, ADIFF, CMP, PHOS, MG, GFR, ANEU #### [address] [address] Eosinophils/100 WBC (Bld) 1.3 % Normal 0.0-6.0 [facility] ([place]) Comment on above: Performed By: #### C BC, ADIFF, CMP, PHOS, MG, GFR, ANEU #### [address] [address] Lymphocyte, Absolute 1.3 10 3/mcL Normal 0.9-4.3 [facility] ([place]) Comment on above: Performed By: #### C BC, ADIFF, CMP, PHOS, MG, GFR, ANEU #### [address] [address] Lymphocytes/100 WBC (Bld) 23.1 % Normal 20.0-40.0 [facility] ([place]) Comment on above: Performed By: #### C BC, ADIFF, CMP, PHOS, MG, GFR, ANEU #### [address] [address] Monocyte, Absolute 0.3 10 3/mcL Normal 0.1-1.4 [facility] ([place]) Comment on above: Performed By: #### C BC, ADIFF, CMP, PHOS, MG, GFR, ANEU #### [address] [address] Monocytes/100 WBC (Bld) 5.6 % Normal 2.0-13.0 [facility] ([place]) Comment on above: Performed By: #### C BC, ADIFF, CMP, PHOS, MG, GFR, ANEU #### [address] [address] Neutrophils/100 WBC (Bld) 69.7 % Normal 50.0-75.0 [facility] ([place]) Comment on above: Performed By: #### C BC, ADIFF, CMP, PHOS, MG, GFR, ANEU #### [address] [address] .GFRon 09-24-2022 GFR Non- >60 Normal [facility] ([place]) Comment on above: Result Comment: GFR Population mean for , Non- Americans Ages 20-29 = 116 mL/min/1.73 sq.m. Ages 30-39 = 107 mL/min/1.73 sq.m. Ages 40-49 = 99 mL/min/1.73 sq.m. Ages 50-59 = 93 mL/min/1.73 sq.m. Ages 60-69 = 85 mL/min/1.73 sq.m. Ages 70+ = 75 mL/min/1.73 sq.m. Chronic Kidney Disease: Less than 60 mL/min/1.73 square meters End Stage Renal Disease: Less than 15 mL/min/1.73 square meters Performed By: #### C BC, ADIFF, CMP, PHOS, MG, GFR, ANEU #### [address] [address] GFR >60 Normal [facility] ([place]) Comment on above: Result Comment: GFR Population mean for , Non- Americans Ages 20-29 = 116 mL/min/1.73 sq.m. Ages 30-39 = 107 mL/min/1.73 sq.m. Ages 40-49 = 99 mL/min/1.73 sq.m. Ages 50-59 = 93 mL/min/1.73 sq.m. Ages 60-69 = 85 mL/min/1.73 sq.m. Ages 70+ = 75 mL/min/1.73 sq.m. Chronic Kidney Disease: Less than 60 mL/min/1.73 square meters End Stage Renal Disease: Less than 15 mL/min/1.73 square meters Performed By: #### C BC, ADIFF, CMP, PHOS, MG, GFR, ANEU #### [address] [address] .NEUABSon 09-24-2022 Neutrophil, Absolute 3.9 10 3/mcL Normal 2.3-8.1 [facility] ([place]) Comment on above: Performed By: #### C BC, ADIFF, CMP, PHOS, MG, GFR, ANEU #### [address] [address] BMPon 09-24-2022 BUN/Creatinine Ratio 16.7 ratio Normal 10.0-22.0 [facility] ([place]) Comment on above: Performed By: #### C BC, ADIFF, CMP, PHOS, MG, GFR, ANEU #### [place] [address] Calcium [Mass/Vol] 9.1 mg/dL Normal 8.7-10.4 [facility] ([place]) Comment on above: Performed By: #### C BC, ADIFF, CMP, PHOS, MG, GFR, ANEU #### [address] [address] Chloride [Moles/Vol] 106 mmol/L Normal 98-110 [facility] ([place]) Comment on above: Performed By: #### C BC, ADIFF, CMP, PHOS, MG, GFR, ANEU #### [address] [address] CO2 [Moles/Vol] 24 mmol/L Normal 22-32 [facility] ([place]) Comment on above: Performed By: #### C BC, ADIFF, CMP, PHOS, MG, GFR, ANEU #### [address] [address] Creatinine [Mass/Vol] 0.54 mg/dL Normal 0.50-1.20 [facility] ([place]) Comment on above: Performed By: #### C BC, ADIFF, CMP, PHOS, MG, GFR, ANEU #### [address] [address] Electrolyte Balance 12.0 mEq/L Normal 4.0-15.0 [facility] ([place]) Comment on above: Performed By: #### C BC, ADIFF, CMP, PHOS, MG, GFR, ANEU #### [address] [address] Glucose [Mass/Vol] 104 mg/dL Normal 70-110 [facility] ([place]) Comment on above: Performed By: #### C BC, ADIFF, CMP, PHOS, MG, GFR, ANEU #### [place] [id number] Potassium [Moles/Vol] 4.0 mmol/L Normal 3.5-5.0 [facility] ([place]) Comment on above: Result Comment: Spec imen slightly hemolyzed. Performed By: #### C BC, ADIFF, CMP, PHOS, MG, GFR, ANEU #### [place] [id number] Sodium [Moles/Vol] 142 mmol/L Normal 136-145 [facility] ([place]) Comment on above: Performed By: #### C BC, ADIFF, CMP, PHOS, MG, GFR, ANEU #### [place] [id number] Urea nitrogen [Mass/Vol] 9.0 mg/dL Normal 8.0-22.0 [facility] ([place]) Comment on above: Performed By: #### C BC, ADIFF, CMP, PHOS, MG, GFR, ANEU #### [place] [id number] CBCon 09-24-2022 Erythrocyte distribution width (RBC) [Ratio] 15.5 % Normal 11.5-15.5 [facility] ([place]) Comment on above: Performed By: #### C BC, ADIFF, CMP, PHOS, MG, GFR, ANEU #### [place] [id number] Hematocrit (Bld) [Volume fraction] 39.3 % Normal 34.0-46.0 [facility] ([place]) Comment on above: Performed By: #### C BC, ADIFF, CMP, PHOS, MG, GFR, ANEU #### [place] [id number] Hgb 12.8 G/dL Normal 12.0-16.0 [facility] ([place]) Comment on above: Performed By: #### C BC, ADIFF, CMP, PHOS, MG, GFR, ANEU #### [place] [address] MCH (RBC) [Entitic mass] 25.6 pg Low 27.0-33.0 [facility] ([place]) Comment on above: Performed By: #### C BC, ADIFF, CMP, PHOS, MG, GFR, ANEU #### [place] [address] MCHC 32.6 G/dL Normal 32.0-36.0 [facility] ([place]) Comment on above: Performed By: #### C BC, ADIFF, CMP, PHOS, MG, GFR, ANEU #### [place] [address] MCV (RBC) [Entitic vol] 78.5 fL Low 80.0-99.0 [facility] ([place]) Comment on above: Performed By: #### C BC, ADIFF, CMP, PHOS, MG, GFR, ANEU #### [place] [address] Platelet 275 10 3/mcL Normal 150-450 [facility] ([place]) Comment on above: Performed By: #### C BC, ADIFF, CMP, PHOS, MG, GFR, ANEU #### [place] [address] Platelet mean volume (Bld) [Entitic vol] 6.8 fL Normal 6.6-10.5 [facility] ([place]) Comment on above: Performed By: #### C BC, ADIFF, CMP, PHOS, MG, GFR, ANEU #### [place] [address] RBC 5.01 10 6/mcL Normal 4.10-5.30 [facility] ([place]) Comment on above: Performed By: #### C BC, ADIFF, CMP, PHOS, MG, GFR, ANEU #### [address] [address] WBC 5.6 10 3/mcL Normal 4.5-10.8 [facility] ([place]) Comment on above: Performed By: #### C BC, ADIFF, CMP, PHOS, MG, GFR, ANEU #### [address] [address] LABORATORYOrdered By: SYSTEM SYSTEM on 09-24-2022 Basophils (Bld) [#/Vol] 0.0 103/mcL Invalid Interpretation Code 0.0 - 0.3 10^3/mcL Workflow SS Basophils/100 WBC (Bld) 0.3 % Invalid Interpretation Code 0.0 - 2.5 % AH Workflow SS Calcium [Mass/Vol] 9.1 mg/dL Invalid Interpretation Code 8.7 - 10.4 mg/dL ADM SS Chloride [Moles/Vol] 106 mmol/L Invalid Interpretation Code 98 - 110 mEq/L ADM SS CO2 [Moles/Vol] 24 mmol/L Invalid Interpretation Code 22 - 32 mEq/L ADM SS Creatinine [Mass/Vol] 0.54 mg/dL Invalid Interpretation Code 0.50 - 1.20 mg/dL ADM SS Electrolyte Balance 12.0 mEq/L Invalid Interpretation Code 4.0 - 15.0 mEq/L ADM SS Eosinophils (Bld) [#/Vol] 0.1 103/mcL Invalid Interpretation Code 0.0 - 0.7 10^3/mcL AH Workflow SS Eosinophils/100 WBC (Bld) 1.3 % Invalid Interpretation Code 0.0 - 6.0 % AH Workflow SS Erythrocyte distribution width (RBC) [Ratio] 15.5 % Invalid Interpretation Code 11.5 - 15.5 % AH Workflow SS GFR/1.73 sq M.predicted among blacks MDRD (S/P/Bld) [Vol rate/Area] ml/min/1.73sqm Invalid Interpretation Code Chemistry S GFR/1.73 sq M.predicted among non-blacks MDRD (S/P/Bld) [Vol rate/Area] ml/min/1.73sqm Invalid Interpretation Code Chemistry S Glucose [Mass/Vol] 104 mg/dL Invalid Interpretation Code 70 - 110 mg/dL ADM SS Hematocrit (Bld) [Volume fraction] 39.3 % Invalid Interpretation Code 34.0 - 46.0 % AH Workflow SS Hemoglobin (Bld) [Mass/Vol] 12.8 G/dL Invalid Interpretation Code 12.0 - 16.0 G/dL AH Workflow SS Lymphocytes (Bld) [#/Vol] 1.3 103/mcL Invalid Interpretation Code 0.9 - 4.3 10^3/mcL AH Workflow SS Lymphocytes/100 WBC (Bld) 23.1 % Invalid Interpretation Code 20.0 - 40.0 % AH Workflow SS MCH (RBC) [Entitic mass] 25.6 pg Invalid Interpretation Code 27.0 - 33.0 pg AH Workflow SS MCHC 32.6 G/dL Invalid Interpretation Code 32.0 - 36.0 G/dL AH Workflow SS MCV (RBC) [Entitic vol] 78.5 fL Invalid Interpretation Code 80.0 - 99.0 fL AH Workflow SS Monocytes (Bld) [#/Vol] 0.3 103/mcL Invalid Interpretation Code 0.1 - 1.4 10^3/mcL AH Workflow SS Monocytes/100 WBC (Bld) 5.6 % Invalid Interpretation Code 2.0 - 13.0 % AH Workflow SS Neutrophils (Bld) [#/Vol] 3.9 103/mcL Invalid Interpretation Code 2.3 - 8.1 10^3/mcL AH Workflow SS Neutrophils/100 WBC (Bld) 69.7 % Invalid Interpretation Code 50.0 - 75.0 % AH Workflow SS Platelet mean volume (Bld) [Entitic vol] 6.8 fL Invalid Interpretation Code 6.6 - 10.5 fL AH Workflow SS Platelets (Bld) [#/Vol] 275 103/mcL Invalid Interpretation Code 150 - 450 10^3/mcL AH Workflow SS Potassium [Moles/Vol] 4.0 mmol/L Invalid Interpretation Code 3.5 - 5.0 mEq/L ADM SS Comment on above: Result Comment: Spec imen slightly hemolyzed. RBC (Bld) [#/Vol] 5.01 106/mcL Invalid Interpretation Code 4.10 - 5.30 10^6/mcL AH Workflow SS Sodium [Moles/Vol] 142 mmol/L Invalid Interpretation Code 136 - 145 mEq/L ADM SS Urea nitrogen [Mass/Vol] 9.0 mg/dL Invalid Interpretation Code 8.0 - 22.0 mg/dL ADM SS Urea nitrogen/Creatinine [Mass ratio] 16.7 ratio Invalid Interpretation Code 10.0 - 22.0 ratio AH ADM SS WBC (Bld) [#/Vol] 5.6 103/mcL Invalid Interpretation Code 4.5 - 10.8 10^3/mcL Workflow SS CT ABDOMEN/PELVIS W/CONTRAST on 09-01-2022 CT ABDOMEN/PELVIS W/CONTRAST ORIGINAL EXAMINATION: CT OF THE ABDOMEN AND PELVIS WITH MJBAYCGX42/18/2022 12:19 pm TECHNIQUE: CT of the abdomen and pelvis was performed with the administration of intravenous contrast. Multiplanar reformatted images are provided for review. Automated exposure control, iterative reconstruction, and/or weight based adjustment of the mA/kV was utilized to reduce the radiation dose to as low as reasonably achievable. COMPARISON: MR pelvis 04/03/2022 HISTORY: ORDERING SYSTEM PROVIDED HISTORY: Reason for Exam: Evaluate for hernia, right abdominal bulge FINDINGS: The included lung bases are clear. There is no visible pleural or pericardial effusion. No acute abnormalities of the stomach, small bowel, or colon. The appendix is normal. There is a 2.0 cm centrally hypodense lesion with nodular peripheral enhancement in the anterior left hepatic lobe, which is consistent with a hepatic cavernous hemangioma. The pancreas, spleen, and adrenal glands are normal. The kidneys enhance symmetrically. No evidence of urolithiasis or hydronephrosis. The bladder appears unremarkable. The uterus and adnexa are normal. An appropriately placed IUD is visualized in the uterus. The previously noted abnormal soft tissue connecting the lower rectum to the left posterior vagina is not well visualized. The aorta is normal in caliber. No lymphadenopathy is identified. No free intraperitoneal fluid or gas is identified. Bones: No acute fracture or aggressive osseous lesion. Superficial Soft Tissues: There is a small fat-containing umbilical hernia. There is an additional fat-containing body wall hernia through the right rectus muscle, possibly representing an incisional hernia with a 2.0 cm opening into the hernia. There is no evidence of inflammation or incarceration. No other significant abnormalities are visualized. IMPRESSION: 1. Fat containing body wall hernia through the right rectus muscle without inflammation or bowel obstruction. This may represent an incisional hernia. 2. 2.0 cm hypodense hepatic lesion with nodular peripheral enhancement is consistent with a cavernous hemangioma. I have personally reviewed the images of this examination and agree with the resident's findings and interpretation. Interpreted by: Buddy Jc MD Preliminary Report By: Jen Masters Electronically signed By Buddy Jc MD Dictated Date: 09/01/2022 1:16:30 PM Prelim Date: 09/01/2022 4:58:51 PM Sign Date: 09/01/2022 4:58:51 PM Ordering Provider: DAY Aguila [facility] ([place]) Office Visit (Urology)on Follow-up visit Patient Discussion/Summary 27 yo here for postop visit after rectocele repair and perineoplasty Overall doing well, will recruit her mom/grandmother to help her with her duaghter at home Continue stool softener plan to start PT at 6 weeks Chief Complaint FUV History of Present Zoaailu10 yo s/p perineoplasty and rectocele repair. She is doing well, had significant pain, but doing ok with pain meds. Not taking them anymore. Still having soft BM's. Has had to lift her daughter, needs more help at home. Review of Systems Constitutional: no fever, no chills and not feeling poorly. Eyes: no eyesight problems. ENT: no hearing loss, no nosebleeds and no sore throat. Cardiovascular: no chest pain, no palpitations and no lower extremity edema. Respiratory: no shortness of breath, no wheezing, no cough and no shortness of breath during exertion. Gastrointestinal: no abdominal pain, no constipation, no heartburn, no diarrhea, no vomiting and no blood in stools. Genitourinary: no dysuria, no incontinence, normal micturition, no pelvic pain and no vaginal discharge. Musculoskeletal: no arthralgias and no gait abnormality. Integumentary: no skin lesions, no change in a mole and no skin wound. Neurological: no confusion, no dizziness, no fainting and no difficulty walking. Psychiatric: not suicidal, no anxiety and no depression. All other systems have been reviewed and are negative for complaint. Vitals Vital Signs Recorded: 11Aug2022 11:16AM Hwdjfoilqhh11.2 F Heart Rate84 Jxbsismw528 Hibvujtgv45 Height5 ft 4 in Pqfgwv567 lb BMI Afppfphiwm45.35 kg/m2 BSA Calculated2.22 Tobacco Useb) No Falls Screening (Age 18+)a) No falls within the last year Physical Exam perineum healing well, intact, clean vaginal tissue also healing, no sutures visible General: Well developed, well nourished, alert and cooperative, appears in no acute distress Eyes: Non-injected conjunctiva, sclera clear, no proptosis Cardiac: Extremities are warm and well perfused. No edema, cyanosis or pallor. Lungs: Breathing is easy, non-labored. Speaking in clear and complete sentences. Normal diaphragmatic movement. MSK: Ambulatory with steady gait, unassisted Neuro: alert and oriented to person, place and time Psych: Demonstrates good judgement and reason, without hallucinations, abnormal affect or abnormal behaviors. Skin: no obvious lesions, no rashes. Signatures Electronically signed by : Darryl Rodriguez MD MPH; Aug 14 2022 11:00AM EST (Author) Normal Kno Tobacco Screening.on Fall risk assessment a) No falls within the last year [employer] Work Phone: Tobacco use status CPHS b) No ID-Cwxeuep[employer]L [employer] Work Phone: [facility] Surgical Pathology Dep artmenton 07-22-2022 [facility] Department Name LEELEE ZAMORA Pathologist: DMITRY OCHOA MD Date of Procedure: 07/22/2022 Date Received: 07/22/2022 Date Reported 08/01/2022 Submitting Physician: DARRYL RODRIGUEZ MD,MPH Location: [facility] External # FINAL DIAGNOSIS A. VAGINAL MUCOSA: -- SQUAMOUS LINED MUCOSA WITH REACTIVE CHANGES. Electronically Signed Out By DMITRY OCHOA MD/V By the signature on this report, the individual or group listed as making the Final Interpretation/Diagnosi s certifies that they have reviewed this case. 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 had a vaginal delivery of 8 pound 9 ounce girl 1 year ago May 05. Her labor lasted more than 24 hours she ended up with forcep assisted the vaginal delivery and 1/4 degree laceration. She lost a lot of blood 3 days later her laceration repair failed she saw Dr. Yemi Baez in [place] and had a revision 7 days after delivery. Unfortunately she has continued to have stool in the vagina ended up with an abscess and C. difficile. She later had a second revision with Dr. Velazquez at [place] which also failed per the patient and she had a ileostomy done in order to give her a break. She had that for about 6 months and was reversed February 10 after methylene dye test was negative. However she still feels symptoms of discharge and stool through the vagina and gas. 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 PMH: none PSH: perineal laceration revision x2, 2020 rectovaginal fistula repair, divertin ileostomy, February 2022 ileostomy reversal. May 2022 exam under anesthesia. Specimens Submitted As: A: VAGINAL MUCOSA Gross Description: Received in formalin, labeled with the patient's name and hospital number and A. vaginal mucosa, are two fragments of mucosa covered soft tissue aggregating to 4.0 x 3.5 x 1.2 cm. The specimen is sectioned. [employer] sections are submitted in one cassette. XL xli/07/22/2022 [facility] Department of Pathology [address] [place] [address] Normal [facility] Comment on above: Performed By: #### A #### [facility] Surgical Pathology Department [address] [place] [address] No Panel Informationon 07-22 EI[facility]ph[employer] alia [facility] Work Phone: Order Reconciliationon 07-22 Order Reconciliation Page 1 Discharge Reconciliation Document Reconciliation Type: Discharge requested on behalf of Darryl Rodriguez (Physician) done by Darryl Rodriguez) Discharge - Reconciliation: 22-Jul-2022 11:49 by: Kanwal Evans (Resident)) Discharge - Reset to Incomplete: 22-Jul-2022 15:04 by: Darryl Rodriguez) Discharge - Reconciliation: 22-Jul-2022 15:05 by: Darryl Rodriguez) Home Medications EnteredHOME MEDICATIONS AT DISCHARGE DateReconciliation Comment/ Additional Information levonorgestrel 52 mg intrauterine device 1 each intrauterine once 11-Jun-2022 11:50 levonorgestrel 52 mg intrauterine device 1 each intrauterine once 11-Jun-2022 11:50 levonorgestrel 52 mg intrauterine device is continued as levonorgestrel 52 mg intrauterine device Mounjaro 5 mg/0.5 mL subcutaneous solution 22-Jul-2022 11:23 Mounjaro 5 mg/0.5 mL subcutaneous solution 22-Jul-2022 11:23 Mounjaro 5 mg/0.5 mL subcutaneous solution is continued as Mounjaro 5 mg/0.5 mL subcutaneous solution Current OrdersDateHOME MEDICATIONS AT DISCHARGE DateReconciliation Comment/ Additional Information ceFAZolin 1 gram Vial_IPRO SolutionGive 2 gram(s), IntraVenous, ONCE 22-Jul-2022 13:48 ceFAZolin 1 gram Vial_IPRO is not required FENTANYL 50MCG/1ML 2ML INJ_IPRO SolutionGive 100 microgram(s), IntraVenous, ONCE 22-Jul-2022 13:48 FENTANYL 50MCG/1ML 2ML INJ_IPRO is not required HYDROmorphone Injectable (DILAUDID)DOSE = 0.5 mg IntraVenous Push Every 5 Minutes, PRN Pain - Severe (7-10) (PACU)Clinician Notes: Edna-operative order ONLYMax total of 4 mg regardless of dose. 21-Jul-2022 15:10 HYDROmorphone Injectable is not required Ketorolac 30 mg/mL Inj 1mL_IPRO SolutionGive 30 mg, IntraVenous, ONCE 22-Jul-2022 13:48 Ketorolac 30 mg/mL Inj 1mL_IPRO is not required Labetalol Injectable (TRANDATE)DOSE = 5 mg IntraVenous Push Once, PRN For SBP>180, DBP>100, HR>60Clinician Notes: Edna-operative order ONLY 22-Jul-2022 09:08 Labetalol Injectable is not required LIDOCAINE 2% PF 5ML VIAL_IPRO SolutionGive 50 mg, IntraVenous, ONCE 22-Jul-2022 13:48 LIDOCAINE 2% PF 5ML VIAL_IPRO is not required Meperidine Injectable (DEMEROL)DOSE = 12.5 mg IntraVenous Push Every 10 Minutes, PRN Shivering (PACU)Clinician Notes: Edna-operative order ONLY 21-Jul-2022 15:10 Meperidine Injectable is not required Metoprolol 1 mg/mL Inj 5 mL_IPRO SolutionGive 2 mg, IntraVenous, ONCE 22-Jul-2022 13:48 Metoprolol 1 mg/mL Inj 5 mL_IPRO is not required METRONIDAZOLE/0.9% NACL 500MG/100ML 100ML IVPB_IPRO SolutionGive 500 mg, IntraVenous, ONCE 22-Jul-2022 13:49 METRONIDAZOLE/0.9% NACL 500MG/100ML 100ML IVPB_IPRO is not required Midazolam 1 mg/mL Inj 2 mL_IPRO SolutionGive 2 mg, IntraVenous, ONCE 22-Jul-2022 13:49 Midazolam 1 mg/mL Inj 2 mL_IPRO is not required Ondansetron 4 mg/2 mL Inj_IPRO SolutionGive 4 mg, IntraVenous, ONCE 22-Jul-2022 13:49 Ondansetron 4 mg/2 mL Inj_IPRO is not required Ondansetron Injectable (ZOFRAN)DOSE = 4 mg IntraVenous Push Once, PRN PONV, first lineClinician Notes: Edna-operative order ONLY 22-Jul-2022 09:08 Ondansetron Injectable is not required oxyCODONE Immediate Release Tablet (OXYIR, ROXICODONE)DOSE = 5 mg Oral Every 4 Hours, PRN Pain - Mod (4-6) (PACU) when able to take OralClinician Notes: Edna-operative order ONLY 21-Jul-2022 15:10 oxyCODONE Immediate Release is not required Promethazine IV Piggy Back in Sodium Chloride 0.9% 50 mL (PHENERGAN)DOSE = 6.25 mg Once, PRN persistent PONV if first line ineffectiveRecommended Infusion Time: 15 minute(s)Clinician Notes: Edna-operative order ONLY 21-Jul-2022 15:10 Promethazine IV Piggy Back is not required PROPOFOL 10MG/1ML 20ML VIAL_IPRO SolutionGive 180 mg, IntraVenous, ONCE 22-Jul-2022 13:49 PROPOFOL 10MG/1ML 20ML VIAL_IPRO is not required Rocuronium 10 mg/mL Inj 10 mL Vial_IPRO SolutionGive 90 mg, IntraVenous, ONCE 22-Jul-2022 13:49 Rocuronium 10 mg/mL Inj 10 mL Vial_IPRO is not required Sugammadex 100 mg/mL 2 mL Vial_IPRO SolutionGive 200 mg, IntraVenous, ONCE 22-Jul-2022 13:49 Sugammadex 100 mg/mL 2 mL Vial_IPRO is not required Home Medications Added During Discharge Reconciliation acetaminophen 500 mg oral tablet 2 tab(s) orally every 6 hours Activity as Tolerated 22-Jul-2022, Routine, Assistance Level: None, Restrictions: None, Limit your activities and rest today. Additional Patient Instructions Additional post-operative instructions were given to the patient by the provider in the pre-op office visit Additional Patient Instructions Do not consume alcoholic beverages for 24 hours. Additional Patient Instructions Do not engage in sports, heavy work or lifting. Do not lift more than 10 lbs for 6 weeks. Additional Patient Instructions Do not make important decisions or sign any important documents for the next 24 hours. Additional Patient Instructions Do not smoke for 24 hours. Additional Patie (more content not included)... Normal [facility] Patient Profile - Preop v3on 07-22-2022 Patient Profile - Preop v3 Patient Profile - Preop: Initial Info: Patient DemographicsName: LEELEE ZAMORA Date: 1995 Address: [address] [place] [address] Primary Phone [phone] How to be Addressedyulissast. [facility] Spoken Language PreferredEnglish Stated Reason for Admissionrectocele repair Primary Contact Name and Numbergary [phone] Medications Brought to Hospitalno General Health: Weight in kg122.8 kilogram(s) Weight in ckb572.7 pound(s) Weight Methodactual (measured) Scale Typestanding Height in feet5 feet Height in inches2.95 inch(es) Height in cm159.8 centimeter(s) Height Methodstated BMI (kg/m2)48.088 square meter Patient or Family Member Reaction to Anesthesiano previous reaction; no previous family member reaction Blood Avoidance/Restrictionsn one Previous Transfusion Reactionnot applicable Health Mgmt: Symptoms/Conditions Managed at HomePMH: none PSH: perineal laceration revision [id number] rectovaginal fistula repair, divertin ileostomy, February 2022 ileostomy reversal. May 2022 exam under anesthesia. Are You no (1) Are You Currently Breastfeedingno Barriers to Managing Healthnone Relationship/Environ: Lives Withspouse Living Arrangementsapartment Resource/Environmental Concernsnone Anticipated Transition [employer] Anticipated at Transitionnone Tobacco Use: Tobacco Useno Pre-op Checklist: Arrival [id number] Arrival Time11:10 NPOyes Last Food [id number]-[id number] 23:00 Last Clear Fluid [id number]-Uio-[id number] 08:00 ID Band On Patientpatient ID (name), allergy, falls risk Consent Signedpending H&P Completepending Anesthesia Assessment Completedpending COVID 19 Results in Last 7 daysnegative 07/19/22 HCG Urine TestComplete negative Additional Information: Information Review: Allergies, Home Meds and Significant Events have been Reviewed and Verified with Patient/Familyyes Allergy, Intolerance, Adverse Event: Allergies: morphine: Drug, Unknown, Active Electronic Signatures: Livier Miller (TERRY) (Signed 22-Jul-2022 11:46) Authored: Initial Info, General Health, Health Mgmt, Relationship/Environ, Tobacco Use, Pre-op Checklist, Additional Information Last Updated: 22-Jul-2022 11:46 by Livier Miller (TERRY) References: 1. Data Referenced From History and Physical - Surgery > 30 days 22-Jul-2022 06:30 Normal [facility] CORONAVIRUS 2019, SCREEN ASY MPTOMATICon 07-20-2022 SARS-CoV-2 (COVID-19) RNA SANJEEV+probe Ql (Unsp spec) Not detected Normal Not Detected [facility] Comment on above: Result Comment: . This assay is designed to detect the N, ORF1ab and/or S genes of SARS-CoV-2 via nucleic acid amplification. A Negative (NOT DETECTED) result does not preclude 2019-nCoV infection since the adequacy of sample collection and/or low viral burden may result in presence of viral nucleic acids below the clinical sensitivity of this test method. Negative (NOT DETECTED) result should not be used as the sole basis for treatment or other patient management decisions. Rather negative results should be combined with clinical observations, patient history, and epidemiological information to make patient management decisions. Fact sheet for providers: https://www.fda.gov/media/070865/download Fact sheet for patients: https://www.fda.gov/media/098740/download This test has received FDA Emergency Use Authorization (EUA) and has been verified by [facility] ([facility]). This test is only authorized for the duration of time that circumstances exist to justify the authorization of the emergency use of in vitro diagnostic tests for the detection of SARS-CoV-2 virus and/or diagnosis of COVID-19 infection under section 564(b)(1) of the Act, 21 U.S.C. 360bbb-3(b)(1), unless the authorization is terminated or revoked sooner. [facility] is certified under CLIA-88 as qualified to perform high complexity testing. Testing is performed in the [facility] laboratories located at [address] [place] [place] [address]. Performed By: #### C OVSC #### [address] [place] [address] Covid 19 Resultson 2 SARS-CoV-2 (COVID-19) RNA SANJEEV+probe Ql (Unsp spec) NEGATIVE COVID-19 Test Coronaviruses are common world-wide and are the cause of many common colds. SARS-COV2 is a new coronavirus that began circulating worldwide in 2019 so we are calling it COVID-19. It has been estimated that four out of five patients with COVID-19 will recover at home without the need for medical attention. Symptoms of COVID-19 may include cough, fever, shortness of breath, loss of taste or smell and other flu-like symptoms including chills, sore muscles, sore throat, and headache. Severe illness is more common in older people and people with other health problems such as high blood pressure, obesity, and immune system problems. If the test is positive, you have COVID-19. You will be contacted by the ordering physicians office and instructed to remain on home isolation, in accordance with CDC guidelines. You may also be contacted by the [facility] to see if any of your close contacts may have been exposed to the virus and need to quarantine. If the test is negative, you likely do not have COVID-19 at this time, but you still may have a different illness that can spread to other people (like Influenza, or the Flu) and could still be at risk for getting COVID-19. We recommend that you stay away from other people to limit the spread of illness until your symptoms are improving and you are fever-free for 24 hours without the use of fever lowering medications such as acetaminophen or ibuprofen. No test is 100% accurate so if you are still concerned you may have COVID-19, talk to your doctor about the need to continue to stay away from others. Medicines Unless your provider told you not to use the following: Acetaminophen (Tylenol and others) is generally safe. Anti-inflammatory medications, such as Ibuprofen (Advil or Motrin) or Naproxen (Aleve) can also be used. Ffcz-pxh-dlnhwxu cough and cold medicines can be used according to the instructions on the package. Some fdgw-wol-nhxjorw medicines also contain acetaminophen. Make sure you are not taking more than your recommended dose. For those not hospitalized, there is no specific treatment available for this illness. Antibiotics do not treat Coronaviruses. Follow-Up Follow up with your doctor by scheduling a virtual visit or consider follow-up at one of our urgent care fever clinics. If you are having difficulty breathing, or are very weak and having difficulty standing, this is a medical emergency. Call 911 or have someone take you to the nearest emergency room immediately. If possible, wear a facemask. Additional guidance from the CDC for patients who tested POSITIVE for COVID-19 How to isolate: Isolate yourself in a specific room at home and limit your contact with others. Use a separate bathroom from other members of the household, when possible. Leave home only to get essential medical care. Do not go to work, school or public areas. Avoid using public transportation, ride-sharing, or taxis. Restrict contact with pets and other animals. If you must care for your pet or be around animals while you are sick, wash your hands before and after your interaction and wear a facemask. Make sure that shared spaces in the home have good airflow, such as by an air conditioner or an opened window, weather permitting. Personal Hygiene Procedures: Wear a face mask when in the same room as other people or pets. If a face mask interferes with your breathing, others should wear a mask when sharing space with you. Frequent hand-washing: wash your hands with soap and water for at least 20 seconds. If soap and water are not available, use alcohol-based hand developmental behavioral physician. Avoid touching your eyes, nose, and mouth with unwashed hands. Household Hygiene Procedures: Avoid sharing personal household items such as dishes, glassware, cups, eating utensils, towels or bedding with other people or pets in your home. After use, these items should be washed with soap and hot water. Disinfect all high-touch surfaces every day with antibacterial cleaning solutions such as Lysol wipes, bleach, cleansers, etc. High-touch surfaces include tabletops, doorknobs, bathroom fixtures, toilets, phones, keyboards, tablets and bedside tables. Immediately clean any surfaces that may have blood, poop or body fluids on them, using antibacterial cleaning solutions such as Lysol wipes, bleach, cleansers, etc. If clothing or bedding come into contact with blood, poop or body fluids, they should be washed immediately. Follow the directions on the laundry detergent and clothing labels but hot water is recommended when possible. Stopping home isolation precautions: If possible, consult your doctor before stopping home isolation precautions. According to the CDC, you can discontinue home isolation precautions when you have met both of these criteria: Your fever and respiratory symptoms have been gone for 24 wanda (more content not included)... Normal [facility] CORONAVIRUS 2019, SCREEN ASY MPTOMATICon 07-19-2022 Lab Specimen Source Nasal, Nasopharyngeal Normal [facility] Comment on above: Performed By: #### C OVSC #### [facility] [address] [place] [address] Coronavirus 2019 RNA by PCR, Screening Asymptomticon 07-19-2022 Coronavirus 2019 RNA by PCR, Screening Asymptomtic Not detected Normal See Below KG-Xmhkmuv-H david Tejeda Work Phone: Comment on above: SOURCE: Nasal, Nasop haryngealReference Range: Not Detected.This assay is designed to detect the N, ORF1ab and/or S genes of SARS-CoV-2 via nucleic acid amplification. A Negative (NOT DETECTED) result does not preclude 2019-nCoV infection since the adequacy of sample collection and/or low viral burden may result in presence of viral nucleic acids below the clinical sensitivity of this test method. Negative (NOT DETECTED) result should not be used as the sole basis for treatment or other patient management decisions. Rather negative results should be combined with clinical observations, patient history, and epidemiological information to make patient management decisions.Fact sheet for providers: https://www.fda.gov/media/392828/downloadFact sheet for patients: https://www.fda.gov/media/769171/downloadThis test has received FDA Emergency Use Authorization (EUA) and has been verified by [facility] ([facility]). This test is only authorized for the duration of time that circumstances exist to justify the authorization of the emergency use of in vitro diagnostic tests for the detection of SARS-CoV-2 virus and/or diagnosis of COVID-19 infection under section 564(b)(1) of the Act, 21 U.S.C. 360bbb-3(b)(1), unless the authorization is terminated or revoked sooner. [facility] is certified under CLIA-88 as qualified to perform high complexity testing. Testing is performed in the [facility] laboratories located at [address] [place] [address]. Order Reconciliationon 06-11 Order Reconciliation Page 1 Discharge Reconciliation Document Reconciliation Type: Discharge requested on behalf of Maria A Scott (Physician) done by Maria A Scott ( (Fellow)) Discharge - Reconciliation: 11-Jun-2022 12:36 by: Maria A Scott ( (Fellow)) Home Medications EnteredHOME MEDICATIONS AT DISCHARGE DateReconciliation Comment/ Additional Information levonorgestrel 52 mg intrauterine device 1 each intrauterine once 11-Jun-2022 11:50 levonorgestrel 52 mg intrauterine device 1 each intrauterine once 11-Jun-2022 11:50 levonorgestrel 52 mg intrauterine device is continued as levonorgestrel 52 mg intrauterine device ocular lubricant ophthalmic solution 1 drop(s) to each affected eye 3 times a day, As Needed 11-Jun-2022 11:49 ocular lubricant ophthalmic solution 1 drop(s) to each affected eye 3 times a day, As Needed 11-Jun-2022 11:49 ocular lubricant ophthalmic solution is continued as ocular lubricant ophthalmic solution All Active Home Medications at time of Discharge Reconciliation: 11-Jun-2022 12:36 levonorgestrel 52 mg intrauterine device 1 each intrauterine once ocular lubricant ophthalmic solution 1 drop(s) to each affected eye 3 times a day, As Needed Normal [facility] Patient Profile - Preop v3on 06-11-2022 Patient Profile - Preop v3 Patient Profile - Preop: Initial Info: Patient DemographicsName: LEELEE ZAMORA Date: 1995 Address: [address] [place] [address] Primary Phone [phone] How to be AddressedLeelee Spoken Language PreferredEnglish Stated Reason for Admissionvag/colo fistula Primary Contact Name and NumberAzula- [phone] Medications Brought to Hospitalno General Health: Weight in kg123.4 kilogram(s) Weight in eti592 pound(s) Weight Methodactual (measured) Scale Typestanding Height in feet5 feet Height in inches3.98 inch(es) Height in cm162.5 centimeter(s) BMI (kg/m2)46.731 square meter Patient or Family Member Reaction to Anesthesiapatient reaction Patient Reaction to Anesthesiaagitation Blood Avoidance/Restrictionsn one Previous Transfusion Reactionno Health Mgmt: Symptoms/Conditions Managed at Homeobstetric/gynecolog ic; gastrointestinal Are You no (1) Are You Currently Breastfeedingno Barriers to Managing Healthnone Relationship/Environ: Lives Withspouse; dependent child(erwin) Living Arrangementsapartment Resource/Environmental Concernsnone Anticipated Transition [place] [employer] Anticipated at Transitionnone Tobacco Use: Tobacco Useno Pre-op Checklist: Arrival [id number] Arrival Time11:45 Procedure TypeEUA NPOyes ID Band On Patientpatient ID (name) Consent Signedpending H&P Completeyes Anesthesia Assessment Completedpending EKG Performedsee results tab Chest X-Ray Performedsee results tab Preop Antibioticsnot ordered COVID 19 Results in Last 7 daysneg HCG Urine TestComplete Chlorhexadine Bath Givennot applicable Nasal Antiseptic Appliednot applicable Soap and Water Bath the Night Before Surgeryyes Hair Washed with Shampooyes Bowel Prepyes TypeMiralax Bowel Prep Completed as Instructedyes Stools Clearyes Surgical Site Infection Preventionyes Pain Scales and Managementyes Additional Information: Information Review: Allergies, Home Meds and Significant Events have been Reviewed and Verified with Patient/Familyyes Allergy, Intolerance, Adverse Event: Allergies: No Known Allergies: Active Electronic Signatures: Kathie Ellington) (Signed 11-Jun-2022 11:50) Authored: Initial Info, General Health, Health Mgmt, Relationship/Environ, Tobacco Use, Pre-op Checklist, Additional Information Last Updated: 11-Jun-2022 11:50 by Kathie Ellington (ESTEFANIA) References: 1. Data Referenced From History and Physical - Surgery > 30 days 11-Jun-2022 00:01 Normal [facility] CORONAVIRUS 2019, SCREEN ASY MPTOMATICon 06-10-2022 SARS-CoV-2 (COVID-19) RNA SANJEEV+probe Ql (Unsp spec) Not detected Normal Not Detected [facility] Comment on above: Result Comment: . This assay is designed to detect the N, ORF1ab and/or S genes of SARS-CoV-2 via nucleic acid amplification. A Negative (NOT DETECTED) result does not preclude 2019-nCoV infection since the adequacy of sample collection and/or low viral burden may result in presence of viral nucleic acids below the clinical sensitivity of this test method. Negative (NOT DETECTED) result should not be used as the sole basis for treatment or other patient management decisions. Rather negative results should be combined with clinical observations, patient history, and epidemiological information to make patient management decisions. Fact sheet for providers: https://www.fda.gov/media/248721/download Fact sheet for patients: https://www.fda.gov/media/762810/download This test has received FDA Emergency Use Authorization (EUA) and has been verified by [facility] ([facility]). This test is only authorized for the duration of time that circumstances exist to justify the authorization of the emergency use of in vitro diagnostic tests for the detection of SARS-CoV-2 virus and/or diagnosis of COVID-19 infection under section 564(b)(1) of the Act, 21 U.S.C. 360bbb-3(b)(1), unless the authorization is terminated or revoked sooner. [facility] is certified under CLIA-88 as qualified to perform high complexity testing. Testing is performed in the [facility] laboratories located [place] [address] [place] [address]. Performed By: #### C OVSC #### [facility] [id number] [place] [address]. [place] [address] Covid 19 Resultson 2 SARS-CoV-2 (COVID-19) RNA SANJEEV+probe Ql (Unsp spec) NEGATIVE COVID-19 Test Coronaviruses are common world-wide and are the cause of many common colds. SARS-COV2 is a new coronavirus that began circulating worldwide in 2019 so we are calling it COVID-19. It has been estimated that four out of five patients with COVID-19 will recover at home without the need for medical attention. Symptoms of COVID-19 may include cough, fever, shortness of breath, loss of taste or smell and other flu-like symptoms including chills, sore muscles, sore throat, and headache. Severe illness is more common in older people and people with other health problems such as high blood pressure, obesity, and immune system problems. If the test is positive, you have COVID-19. You will be contacted by the ordering physicians office and instructed to remain on home isolation, in accordance with CDC guidelines. You may also be contacted by the [place] [facility] to see if any of your close contacts may have been exposed to the virus and need to quarantine. If the test is negative, you likely do not have COVID-19 at this time, but you still may have a different illness that can spread to other people (like Influenza, or the Flu) and could still be at risk for getting COVID-19. We recommend that you stay away from other people to limit the spread of illness until your symptoms are improving and you are fever-free for 24 hours without the use of fever lowering medications such as acetaminophen or ibuprofen. No test is 100% accurate so if you are still concerned you may have COVID-19, talk to your doctor about the need to continue to stay away from others. Medicines Unless your provider told you not to use the following: Acetaminophen (Tylenol and others) is generally safe. Anti-inflammatory medications, such as Ibuprofen (Advil or Motrin) or Naproxen (Aleve) can also be used. Uhjo-nxk-mlpvdcf cough and cold medicines can be used according to the instructions on the package. Some eldk-owd-ntryfvz medicines also contain acetaminophen. Make sure you are not taking more than your recommended dose. For those not hospitalized, there is no specific treatment available for this illness. Antibiotics do not treat Coronaviruses. Follow-Up Follow up with your doctor by scheduling a virtual visit or consider follow-up at one of our urgent care fever clinics. If you are having difficulty breathing, or are very weak and having difficulty standing, this is a medical emergency. Call 911 or have someone take you to the nearest emergency room immediately. If possible, wear a facemask. Additional guidance from the CDC for patients who tested POSITIVE for COVID-19 How to isolate: Isolate yourself in a specific room at home and limit your contact with others. Use a separate bathroom from other members of the household, when possible. Leave home only to get essential medical care. Do not go to work, school or public areas. Avoid using public transportation, ride-sharing, or taxis. Restrict contact with pets and other animals. If you must care for your pet or be around animals while you are sick, wash your hands before and after your interaction and wear a facemask. Make sure that shared spaces in the home have good airflow, such as by an air conditioner or an opened window, weather permitting. Personal Hygiene Procedures: Wear a face mask when in the same room as other people or pets. If a face mask interferes with your breathing, others should wear a mask when sharing space with you. Frequent hand-washing: wash your hands with soap and water for at least 20 seconds. If soap and water are not available, use alcohol-based hand developmental behavioral physician. Avoid touching your eyes, nose, and mouth with unwashed hands. Household Hygiene Procedures: Avoid sharing personal household items such as dishes, glassware, cups, eating utensils, towels or bedding with other people or pets in your home. After use, these items should be washed with soap and hot water. Disinfect all high-touch surfaces every day with antibacterial cleaning solutions such as Lysol wipes, bleach, cleansers, etc. High-touch surfaces include tabletops, doorknobs, bathroom fixtures, toilets, phones, keyboards, tablets and bedside tables. Immediately clean any surfaces that may have blood, poop or body fluids on them, using antibacterial cleaning solutions such as Lysol wipes, bleach, cleansers, etc. If clothing or bedding come into contact with blood, poop or body fluids, they should be washed immediately. Follow the directions on the laundry detergent and clothing labels but hot water is recommended when possible. Stopping home isolation precautions: If possible, consult your doctor before stopping home isolation precautions. According to the CDC, you can discontinue home isolation precautions when you have met both of these criteria: Your fever and respiratory symptoms have been gone for 24 wanda (more content not included)... Normal [facility] CORONAVIRUS 2019, SCREEN ASY MPTOMATICon 06-09-2022 Lab Specimen Source Nasal, Nasopharyngeal Normal [facility] Comment on above: Performed By: #### C OVSC #### [facility] [address] [place] [address] Coronavirus 2019 RNA by PCR, Screening Asymptomticon 06-09-2022 Coronavirus 2019 RNA by PCR, Screening Asymptomtic Not detected Normal See Below WE-Aebpxkz-C david Tejeda Work Phone: Comment on above: SOURCE: Nasal, Nasop haryngealReference Range: Not Detected.This assay is designed to detect the N, ORF1ab and/or S genes of SARS-CoV-2 via nucleic acid amplification. A Negative (NOT DETECTED) result does not preclude 2019-nCoV infection since the adequacy of sample collection and/or low viral burden may result in presence of viral nucleic acids below the clinical sensitivity of this test method. Negative (NOT DETECTED) result should not be used as the sole basis for treatment or other patient management decisions. Rather negative results should be combined with clinical observations, patient history, and epidemiological information to make patient management decisions.Fact sheet for providers: https://www.fda.gov/media/718690/downloadFact sheet for patients: https://www.fda.gov/media/218322/downloadThis test has received FDA Emergency Use Authorization (EUA) and has been verified by [facility] ([facility]). This test is only authorized for the duration of time that circumstances exist to justify the authorization of the emergency use of in vitro diagnostic tests for the detection of SARS-CoV-2 virus and/or diagnosis of COVID-19 infection under section 564(b)(1) of the Act, 21 U.S.C. 360bbb-3(b)(1), unless the authorization is terminated or revoked sooner. [facility] is certified under CLIA-88 as qualified to perform high complexity testing. Testing is performed in the [facility] laboratories located at [address] [place] [address]. 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 I do not appreciate a fistula today however I do believe that the rectovaginal septum is weak and she does have a rectocele as well We discussed doing an exam under anesthesia with colorectal and rebuilding the perineum and repairing the rectocele if no fistula is found but if a fistula is found and it is too large to be repaired at the same time we will plan on ileostomy and flap However given that I do not palpate the fistula today feel like ileostomy and flap would be unnecessary unless the fistula is found to be large and of poor quality tissue surrounding We will request records from MRI and EUA by Dr. Velazquez Also refer her to Dr. Patricia Ordonez who specializes in / trauma Chief Complaint NPV Vesicovaginal Fistula History of Present [id number]-qhl had a vaginal delivery of 8 pound 9 ounce infant girl 1 year ago May 05. Her labor lasted more than 24 hours she ended up with forcep assisted the vaginal delivery and 1/4 degree laceration. She lost a lot of blood 3 days later her laceration repair failed she saw Dr. Yemi Baez in [place] and had a revision 7 days after delivery. Unfortunately she has continued to have stool in the vagina ended up with an abscess and C. difficile. She later had a second revision with Dr. Velazquez at [place] which also failed per the patient and she had a ileostomy done in order to give her a break. She had that for about 6 months and was reversed February 10 after methylene dye test was negative. However she still feels symptoms of discharge and stool through the vagina and gas. 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 Review of Systems Constitutional: no fever, no chills and not feeling poorly. Eyes: no eyesight problems. ENT: no hearing loss, no nosebleeds and no sore throat. Cardiovascular: no chest pain, no palpitations and no lower extremity edema. Respiratory: no shortness of breath, no wheezing, no cough and no shortness of breath during exertion. Gastrointestinal: no abdominal pain, no constipation, no heartburn, no diarrhea, no vomiting and no blood in stools. Genitourinary: no dysuria, no incontinence, normal micturition, no pelvic pain and no vaginal discharge. Musculoskeletal: no arthralgias and no gait abnormality. Integumentary: no skin lesions, no change in a mole and no skin wound. Neurological: no confusion, no dizziness, no fainting and no difficulty walking. Psychiatric: not suicidal, no anxiety and no depression. All other systems have been reviewed and are negative for complaint. Vitals Vital Signs Recorded: 01May2022 02:25PM Zqiyppvcijk35 F Heart Rate80 Casrzmng880 Tcacbzlgr01 Height5 ft 4 in Bvuuie710 lb BMI Oxuploddjr05.49 kg/m2 BSA Calculated2.2 Tobacco Useb) No Physical Exam The perineum is short and scar tissue is visible I do not palpate any fistula There is a significant rectocele that is tender to touch General: Well developed, well nourished, alert and cooperative, appears in no acute distress Eyes: Non-injected conjunctiva, sclera clear, no proptosis Cardiac: Extremities are warm and well perfused. No edema, cyanosis or pallor. Lungs: Breathing is easy, non-labored. Speaking in clear and complete sentences. Normal diaphragmatic movement. MSK: Ambulatory with steady gait, unassisted Neuro: alert and oriented to person, place and time Psych: Demonstrates good judgement and reason, without hallucinations, abnormal affect or abnormal behaviors. Skin: no obvious lesions, no rashes. Signatures Electronically signed by : Darryl Rodriguez MD MPH; May 01 2022 3:07PM EST (Author) Normal [facility] Tobacco Screening.on 022 Tobacco use status CP b) No SY-Etpufbp-J david Tejeda Work Phone: CBC W Auto Differential pane l (Bld)on 04-24-2022 Abs Immature Gran 0.03 k/uL <0.10 k/uL [facility] Basophils (Bld) [#/Vol] 10*3/uL <0.11 k/uL [facility] Basophils/100 WBC (Bld) 0.3 % [facility] Differential cell count method Nom (Bld) Auto [facility] Eosinophils (Bld) [#/Vol] 0.08 10*3/uL <0.46 k/uL [facility] [facility] Eosinophils/100 WBC (Bld) 1.1 % [facility] Erythrocyte distribution width (RBC) [Ratio] 13.9 % 11.5 - 15.0 % [facility] Hematocrit (Bld) [Volume fraction] 37.8 % 36.0 - 46.0 % [facility] Hemoglobin (Bld) [Mass/Vol] 11.6 g/dL 11.5 - 15.5 g/dL [facility] Immature Gran % 0.4 % [facility] Lymphocytes (Bld) [#/Vol] 1.89 10*3/uL 1.00 - 4.00 k/uL [facility] Lymphocytes/100 WBC (Bld) 25.2 % [facility] MCH (RBC) [Entitic mass] 25.1 pg Low 26.0 - 34.0 pg [facility] MCHC (RBC) [Mass/Vol] 30.7 g/dL 30.5 - 36.0 g/dL [facility] MCV (RBC) [Entitic vol] 81.8 fL 80.0 - 100.0 fL [facility] Monocytes (Bld) [#/Vol] 0.47 10*3/uL <0.87 k/uL [facility] Monocytes/100 WBC (Bld) 6.3 % [facility] Neutrophils (Bld) [#/Vol] 5.00 10*3/uL 1.45 - 7.50 k/uL [facility] Neutrophils/100 WBC (Bld) 66.7 % [facility] Nucleated RBC (Bld) [#/Vol] 10*3/uL <0.01 k/uL [facility] Nucleated RBC/100 WBC (Bld) [Ratio] 0.0 /100 WBC [facility] Platelet mean volume (Bld) [Entitic vol] 8.7 fL Low 9.0 - 12.7 fL [facility] Platelets (Bld) [#/Vol] 331 10*3/uL 150 - 400 k/uL [facility] RBC (Bld) [#/Vol] 4.62 10*6/uL 3.90 - 5.2 0 m/uL [facility] WBC (Bld) [#/Vol] 7.49 10*3/uL 3.70 - 11. 00 k/uL [facility] MRI PELVIS UTERINE/OVARIANon 04-03-2022 MRI PELVIS UTERINE/OVARIAN ORIGINAL EXAMINATION: MRI OF THE PELVIS WITHOUT AND WITH CONTRAST, 04/03/2022 10:30 am TECHNIQUE: Multiplanar multisequence MRI of the pelvis was performed without and with the administration of intravenous contrast. COMPARISON: None. HISTORY: ORDERING SYSTEM PROVIDED HISTORY: Reason for Exam: HISTORY OF RECTOVAGINAL FISTULA, PERINEAL PAIN. FINDINGS: The cervix, uterus and endometrium are unremarkable. Junctional zone is unremarkable. Minimal low signal within the endometrium probably represents an IUD. The ovaries are unremarkable. On the T2 weighted axial images, there is a small slightly tubular area of abnormal soft tissue extending from the anterior aspect of the inferior rectum 2 the left posterior vagina. A clear fat plane does not separate these 2 structures on these images. No focal fluid collection is identified. The rectal wall is not thickened. No additional contributory abnormality seen. IMPRESSION: Abnormal soft tissue extending from the anterior lower rectum to the left posterior vagina raises concern for fistula in this area. No definite inflammation or abscess is evident. Interpreted by: Buddy Jc MD Preliminary Report By: Buddy Jc MD Electronically signed By Buddy Jc MD Dictated Date: 04/03/2022 1:37:00 PM Prelim Date: 04/03/2022 1:45:13 PM Sign Date: 04/03/2022 1:45:13 PM Ordering Provider: DAY Aguila [facility] ([place]) .Auto Diffon 02-14-2022 Basophil, Absolute 0.00 10 3/mcL Normal 0.00-0.27 [facility] ([place]) Comment on above: Performed By: #### C BC, ADIFF, CMP, PHOS, MG, GFR, ANEU #### [address] [address] Basophils/100 WBC (Bld) 0.2 % Normal 0.0-2.5 [facility] Comment on above: Performed By: #### C BC, ADIFF, CMP, PHOS, MG, GFR, ANEU #### [address] [address] Eosinophil, Absolute 0.10 10 3/mcL Normal 0.00-0.65 [facility] ([place]) Comment on above: Performed By: #### C BC, ADIFF, CMP, PHOS, MG, GFR, ANEU #### [address] [address] Eosinophils/100 WBC (Bld) 1.2 % Normal 0.0-6.0 [facility] ([place]) Comment on above: Performed By: #### C BC, ADIFF, CMP, PHOS, MG, GFR, ANEU #### [address] [address] Lymphocyte, Absolute 1.20 10 3/mcL Normal 0.90-4.32 [facility] ([place]) Comment on above: Performed By: #### C BC, ADIFF, CMP, PHOS, MG, GFR, ANEU #### [address] [address] Lymphocytes/100 WBC (Bld) 16.9 % Low 20.0-40.0 [facility] ([place]) Comment on above: Performed By: #### C BC, ADIFF, CMP, PHOS, MG, GFR, ANEU #### [address] [address] Monocyte, Absolute 0.60 10 3/mcL Normal 0.09-1.40 [facility] ([place]) Comment on above: Performed By: #### C BC, ADIFF, CMP, PHOS, MG, GFR, ANEU #### [address] [address] Monocytes/100 WBC (Bld) 7.6 % Normal 2.0-13.0 [facility] ([place]) Comment on above: Performed By: #### C BC, ADIFF, CMP, PHOS, MG, GFR, ANEU #### [address] [address] Neutrophils/100 WBC (Bld) 74.1 % Normal 50.0-75.0 [facility] ([place]) Comment on above: Performed By: #### C BC, ADIFF, CMP, PHOS, MG, GFR, ANEU #### [address] [address] .GFRon 02-14-2022 GFR Non- >60 Normal [facility] ([place]) Comment on above: Result Comment: GFR Population mean for , Non- Americans Ages 20-29 = 116 mL/min/1.73 sq.m. Ages 30-39 = 107 mL/min/1.73 sq.m. Ages 40-49 = 99 mL/min/1.73 sq.m. Ages 50-59 = 93 mL/min/1.73 sq.m. Ages 60-69 = 85 mL/min/1.73 sq.m. Ages 70+ = 75 mL/min/1.73 sq.m. Chronic Kidney Disease: Less than 60 mL/min/1.73 square meters End Stage Renal Disease: Less than 15 mL/min/1.73 square meters Performed By: #### C BC, ADIFF, CMP, PHOS, MG, GFR, ANEU #### [place] [address] GFR >60 Normal [facility] ([place]) Comment on above: Result Comment: GFR Population mean for , Non- Americans Ages 20-29 = 116 mL/min/1.73 sq.m. Ages 30-39 = 107 mL/min/1.73 sq.m. Ages 40-49 = 99 mL/min/1.73 sq.m. Ages 50-59 = 93 mL/min/1.73 sq.m. Ages 60-69 = 85 mL/min/1.73 sq.m. Ages 70+ = 75 mL/min/1.73 sq.m. Chronic Kidney Disease: Less than 60 mL/min/1.73 square meters End Stage Renal Disease: Less than 15 mL/min/1.73 square meters Performed By: #### C BC, ADIFF, CMP, PHOS, MG, GFR, ANEU #### [address] [address] .NEUABSon 02-14-2022 Neutrophil, Absolute 5.50 10 3/mcL Normal 2.25-8.10 [facility] ([place]) Comment on above: Performed By: #### C BC, ADIFF, CMP, PHOS, MG, GFR, ANEU #### [address] [address] CBCon 02-14-2022 Erythrocyte distribution width (RBC) [Ratio] 16.0 % High 11.5-15.5 [facility] ([place]) Comment on above: Performed By: #### C BC, ADIFF, CMP, PHOS, MG, GFR, ANEU #### [place] [address] Hematocrit (Bld) [Volume fraction] 32.9 % Low 34.0-46.0 [facility] ([place]) Comment on above: Performed By: #### C BC, ADIFF, CMP, PHOS, MG, GFR, ANEU #### [place] [address] Hgb 10.9 G/dL Low 12.0-16.0 [facility] ([place]) Comment on above: Performed By: #### C BC, ADIFF, CMP, PHOS, MG, GFR, ANEU #### [place] [address] MCH (RBC) [Entitic mass] 26.2 pg Low 27.0-33.0 [facility] ([place]) Comment on above: Performed By: #### C BC, ADIFF, CMP, PHOS, MG, GFR, ANEU #### [place] [address] MCHC 33.1 G/dL Normal 32.0-36.0 [facility] ([place]) Comment on above: Performed By: #### C BC, ADIFF, CMP, PHOS, MG, GFR, ANEU #### [place] [address] MCV (RBC) [Entitic vol] 79.2 fL Low 80.0-99.0 [facility] ([place]) Comment on above: Performed By: #### C BC, ADIFF, CMP, PHOS, MG, GFR, ANEU #### [place] [address] Platelet 276 10 3/mcL Normal 150-450 [facility] ([place]) Comment on above: Performed By: #### C BC, ADIFF, CMP, PHOS, MG, GFR, ANEU #### [place] [address] Platelet mean volume (Bld) [Entitic vol] 6.9 fL Normal 6.6-10.5 [facility] ([place]) Comment on above: Performed By: #### C BC, ADIFF, CMP, PHOS, MG, GFR, ANEU #### [place] [id number] RBC 4.15 10 6/mcL Normal 4.10-5.30 [facility] ([place]) Comment on above: Performed By: #### C BC, ADIFF, CMP, PHOS, MG, GFR, ANEU #### [place] [address] WBC 7.40 10 3/mcL Normal 4.50-10.80 [facility] ([place]) Comment on above: Performed By: #### C BC, ADIFF, CMP, PHOS, MG, GFR, ANEU #### [place] [address] CMPon 02-14-2022 Albumin Level 2.7 G/dL Low 3.2-4.8 [facility] ([place]) Comment on above: Performed By: #### C BC, ADIFF, CMP, PHOS, MG, GFR, ANEU #### [place] [id number] Albumin/Globulin [Mass ratio] 1.0 {ratio} Normal 0.9-1.6 [facility] ([place]) Comment on above: Performed By: #### C BC, ADIFF, CMP, PHOS, MG, GFR, ANEU #### [place] [id number] ALP [Catalytic activity/Vol] 75 U/L Normal 38-126 [facility] ([place]) Comment on above: Performed By: #### C BC, ADIFF, CMP, PHOS, MG, GFR, ANEU #### [place] [id number] ALT [Catalytic activity/Vol] 17 U/L Normal 10-49 [facility] ([place]) Comment on above: Performed By: #### C BC, ADIFF, CMP, PHOS, MG, GFR, ANEU #### [address] [address] AST [Catalytic activity/Vol] 15 U/L Normal 8-34 [facility] ([place]) Comment on above: Performed By: #### C BC, ADIFF, CMP, PHOS, MG, GFR, ANEU #### [address] [address] Bili Total 1.10 mg/dL Normal 0.20-1.20 [facility] ([place]) Comment on above: Result Comment: Use of this assay is not recommended for patients undergoing treatment with eltrombopag due to the potential for falsely elevated results. Performed By: #### C BC, ADIFF, CMP, PHOS, MG, GFR, ANEU #### [place] [id number] BUN/Creatinine Ratio 14.3 ratio Normal 10.0-22.0 [facility] ([place]) Comment on above: Performed By: #### C BC, ADIFF, CMP, PHOS, MG, GFR, ANEU #### [address] [address] Calcium [Mass/Vol] 8.4 mg/dL Low 8.7-10.4 [facility] ([place]) Comment on above: Result Comment: No te - New Reference Range in effect 20 Performed By: #### C BC, ADIFF, CMP, PHOS, MG, GFR, ANEU #### [address] [address] Chloride [Moles/Vol] 105 mmol/L Normal 98-110 [facility] ([place]) Comment on above: Performed By: #### C BC, ADIFF, CMP, PHOS, MG, GFR, ANEU #### [address] [address] CO2 [Moles/Vol] 26 mmol/L Normal 22-32 [facility] ([place]) Comment on above: Performed By: #### C BC, ADIFF, CMP, PHOS, MG, GFR, ANEU #### [address] [address] Creatinine [Mass/Vol] 0.49 mg/dL Low 0.50-1.20 [facility] ([place]) Comment on above: Performed By: #### C BC, ADIFF, CMP, PHOS, MG, GFR, ANEU #### [place] [id number] Electrolyte Balance 6.0 mEq/L Normal 4.0-15.0 [facility] ([place]) Comment on above: Performed By: #### C BC, ADIFF, CMP, PHOS, MG, GFR, ANEU #### [place] [id number] Globulin 2.8 G/dL Normal 1.5-3.8 [facility] ([place]) Comment on above: Performed By: #### C BC, ADIFF, CMP, PHOS, MG, GFR, ANEU #### [place] [id number] Glucose [Mass/Vol] 119 mg/dL High 70-110 [facility] ([place]) Comment on above: Performed By: #### C BC, ADIFF, CMP, PHOS, MG, GFR, ANEU #### [place] [address] Potassium [Moles/Vol] 3.7 mmol/L Normal 3.5-5.0 [facility] ([place]) Comment on above: Performed By: #### C BC, ADIFF, CMP, PHOS, MG, GFR, ANEU #### [place] [id number] Sodium [Moles/Vol] 137 mmol/L Normal 136-145 [facility] ([place]) Comment on above: Performed By: #### C BC, ADIFF, CMP, PHOS, MG, GFR, ANEU #### [place] [address] Total Protein 5.5 G/dL Low 5.7-8.2 [facility] ([place]) Comment on above: Result Comment: No te - New Reference Range in effect 20 Performed By: #### C BC, ADIFF, CMP, PHOS, MG, GFR, ANEU #### [place] [id number] [place] [address] Urea nitrogen [Mass/Vol] 7.0 mg/dL Low 8.0-22.0 [facility] ([place]) Comment on above: Performed By: #### C BC, ADIFF, CMP, PHOS, MG, GFR, ANEU #### [facility] [address] [place] [address] LABORATORYOrdered By: SYSTEM SYSTEM on 02-14-2022 Albumin BCP dye [Mass/Vol] 2.7 G/dL Invalid Interpretation Code 3.2 - 4.8 G/dL ADM SS Albumin/Globulin [Mass ratio] 1.0 {ratio} Invalid Interpretation Code 0.9 - 1.6 ratio AH ADM SS ALP [Catalytic activity/Vol] 75 U/L Invalid Interpretation Code 38 - 126 U/L AH ADM SS ALT No additional P-5'-P [Catalytic activity/Vol] 17 U/L Invalid Interpretation Code 10 - 49 U/L AH ADM SS AST [Catalytic activity/Vol] 15 U/L Invalid Interpretation Code 8 - 34 U/L AH ADM SS Basophils (Bld) [#/Vol] 0.00 103/mcL Invalid Interpretation Code 0.00 - 0.27 10^3/mcL AH Remisol SS Basophils/100 WBC (Bld) 0.2 % Invalid Interpretation Code 0.0 - 2.5 % AH Remisol SS Bilirubin [Mass/Vol] 1.10 mg/dL Invalid Interpretation Code 0.20 - 1.20 mg/dL AH ADM SS Calcium [Mass/Vol] 8.4 mg/dL Invalid Interpretation Code 8.7 - 10.4 mg/dL AH ADM SS Chloride [Moles/Vol] 105 mmol/L Invalid Interpretation Code 98 - 110 mEq/L AH ADM SS CO2 [Moles/Vol] 26 mmol/L Invalid Interpretation Code 22 - 32 mEq/L AH ADM SS Creatinine [Mass/Vol] 0.49 mg/dL Invalid Interpretation Code 0.50 - 1.20 mg/dL AH ADM SS Electrolyte Balance 6.0 mEq/L Invalid Interpretation Code 4.0 - 15.0 mEq/L AH ADM SS Eosinophils (Bld) [#/Vol] 0.10 103/mcL Invalid Interpretation Code 0.00 - 0.65 10^3/mcL AH Remisol SS Eosinophils/100 WBC (Bld) 1.2 % Invalid Interpretation Code 0.0 - 6.0 % AH Remisol SS Erythrocyte distribution width (RBC) [Ratio] 16.0 % Invalid Interpretation Code 11.5 - 15.5 % AH Remisol SS GFR/1.73 sq M.predicted among blacks MDRD (S/P/Bld) [Vol rate/Area] ml/min/1.73sqm Invalid Interpretation Code AH Chemistry S GFR/1.73 sq M.predicted among non-blacks MDRD (S/P/Bld) [Vol rate/Area] ml/min/1.73sqm Invalid Interpretation Code Chemistry S Globulin 2.8 G/dL Invalid Interpretation Code 1.5 - 3.8 G/dL AH ADM SS Glucose [Mass/Vol] 119 mg/dL Invalid Interpretation Code 70 - 110 mg/dL AH ADM SS Hematocrit (Bld) [Volume fraction] 32.9 % Invalid Interpretation Code 34.0 - 46.0 % AH Remisol SS Hemoglobin (Bld) [Mass/Vol] 10.9 G/dL Invalid Interpretation Code 12.0 - 16.0 G/dL AH Remisol SS Lymphocytes (Bld) [#/Vol] 1.20 103/mcL Invalid Interpretation Code 0.90 - 4.32 10^3/mcL AH Remisol SS Lymphocytes/100 WBC (Bld) 16.9 % Invalid Interpretation Code 20.0 - 40.0 % AH Remisol SS Magnesium [Mass/Vol] 1.5 mg/dL Invalid Interpretation Code 1.6 - 2.4 mg/dL AH ADM SS MCH (RBC) [Entitic mass] 26.2 pg Invalid Interpretation Code 27.0 - 33.0 pg AH Remisol SS MCHC (RBC) [Mass/Vol] 33.1 G/dL Invalid Interpretation Code 32.0 - 36.0 G/dL AH Remisol SS MCV (RBC) [Entitic vol] 79.2 fL Invalid Interpretation Code 80.0 - 99.0 fL AH Remisol SS Monocytes (Bld) [#/Vol] 0.60 103/mcL Invalid Interpretation Code 0.09 - 1.40 10^3/mcL AH Remisol SS Monocytes/100 WBC (Bld) 7.6 % Invalid Interpretation Code 2.0 - 13.0 % AH Remisol SS Neutrophils (Bld) [#/Vol] 5.50 103/mcL Invalid Interpretation Code 2.25 - 8.10 10^3/mcL AH Remisol SS Neutrophils/100 WBC (Bld) 74.1 % Invalid Interpretation Code 50.0 - 75.0 % AH Remisol SS Phosphate [Mass/Vol] 2.4 mg/dL Invalid Interpretation Code 2.4 - 5.1 mg/dL AH ADM SS Platelet mean volume (Bld) [Entitic vol] 6.9 fL Invalid Interpretation Code 6.6 - 10.5 fL AH Remisol SS Platelets (Bld) [#/Vol] 276 103/mcL Invalid Interpretation Code 150 - 450 10^3/mcL AH Remisol SS Potassium [Moles/Vol] 3.7 mmol/L Invalid Interpretation Code 3.5 - 5.0 mEq/L AH ADM SS Protein [Mass/Vol] 5.5 G/dL Invalid Interpretation Code 5.7 - 8.2 G/dL AH ADM SS RBC (Bld) [#/Vol] 4.15 106/mcL Invalid Interpretation Code 4.10 - 5.30 10^6/mcL AH Remisol SS Sodium [Moles/Vol] 137 mmol/L Invalid Interpretation Code 136 - 145 mEq/L AH ADM SS Urea nitrogen [Mass/Vol] 7.0 mg/dL Invalid Interpretation Code 8.0 - 22.0 mg/dL AH ADM SS Urea nitrogen/Creatinine [Mass ratio] 14.3 ratio Invalid Interpretation Code 10.0 - 22.0 ratio AH ADM SS WBC (Bld) [#/Vol] 7.40 103/mcL Invalid Interpretation Code 4.50 - 10.80 10^3/mcL AH Remisol SS MGon 02-14-2022 Magnesium [Mass/Vol] 1.5 mg/dL Low 1.6-2.4 [facility] ([place]) Comment on above: Performed By: #### C BC, ADIFF, CMP, PHOS, MG, GFR, ANEU #### [place] [address] PHOSon 02-14-2022 Phosphate [Mass/Vol] 2.4 mg/dL Normal 2.4-5.1 [facility] ([place]) Comment on above: Result Comment: No te - New Reference Range in effect 20 Performed By: #### C BC, ADIFF, CMP, PHOS, MG, GFR, ANEU #### [address] [address] .Auto Diffon 02-13-2022 Basophil, Absolute 0.00 10 3/mcL Normal 0.00-0.27 [facility] ([place]) Comment on above: Performed By: #### C BC, ADIFF, CMP, PHOS, MG, GFR, ANEU #### [address] [address] Basophils/100 WBC (Bld) 0.2 % Normal 0.0-2.5 [facility] ([place]) Comment on above: Performed By: #### C BC, ADIFF, CMP, PHOS, MG, GFR, ANEU #### [address] [address] Eosinophil, Absolute 0.00 10 3/mcL Normal 0.00-0.65 [facility] ([place]) Comment on above: Performed By: #### C BC, ADIFF, CMP, PHOS, MG, GFR, ANEU #### [address] [address] Eosinophils/100 WBC (Bld) 0.1 % Normal 0.0-6.0 [facility] ([place]) Comment on above: Performed By: #### C BC, ADIFF, CMP, PHOS, MG, GFR, ANEU #### [address] [address] Lymphocyte, Absolute 1.40 10 3/mcL Normal 0.90-4.32 [facility] ([place]) Comment on above: Performed By: #### C BC, ADIFF, CMP, PHOS, MG, GFR, ANEU #### [address] [address] Lymphocytes/100 WBC (Bld) 14.8 % Low 20.0-40.0 [facility] ([place]) Comment on above: Performed By: #### C BC, ADIFF, CMP, PHOS, MG, GFR, ANEU #### [address] [address] Monocyte, Absolute 0.80 10 3/mcL Normal 0.09-1.40 [facility] ([place]) Comment on above: Performed By: #### C BC, ADIFF, CMP, PHOS, MG, GFR, ANEU #### [address] [address] Monocytes/100 WBC (Bld) 8.5 % Normal 2.0-13.0 [facility] ([place]) Comment on above: Performed By: #### C BC, ADIFF, CMP, PHOS, MG, GFR, ANEU #### [address] [address] Neutrophils/100 WBC (Bld) 76.4 % High 50.0-75.0 [facility] ([place]) Comment on above: Performed By: #### C BC, ADIFF, CMP, PHOS, MG, GFR, ANEU #### [address] [address] .GFRon 02-13-2022 GFR >60 Normal [facility] ([place]) Comment on above: Result Comment: GFR Population mean for , Non- Americans Ages 20-29 = 116 mL/min/1.73 sq.m. Ages 30-39 = 107 mL/min/1.73 sq.m. Ages 40-49 = 99 mL/min/1.73 sq.m. Ages 50-59 = 93 mL/min/1.73 sq.m. Ages 60-69 = 85 mL/min/1.73 sq.m. Ages 70+ = 75 mL/min/1.73 sq.m. Chronic Kidney Disease: Less than 60 mL/min/1.73 square meters End Stage Renal Disease: Less than 15 mL/min/1.73 square meters Performed By: #### C BC, ADIFF, CMP, PHOS, MG, GFR, ANEU #### [address] [address] GFR Non- >60 Normal [facility] ([place]) Comment on above: Result Comment: GFR Population mean for , Non- Americans Ages 20-29 = 116 mL/min/1.73 sq.m. Ages 30-39 = 107 mL/min/1.73 sq.m. Ages 40-49 = 99 mL/min/1.73 sq.m. Ages 50-59 = 93 mL/min/1.73 sq.m. Ages 60-69 = 85 mL/min/1.73 sq.m. Ages 70+ = 75 mL/min/1.73 sq.m. Chronic Kidney Disease: Less than 60 mL/min/1.73 square meters End Stage Renal Disease: Less than 15 mL/min/1.73 square meters Performed By: #### C BC, ADIFF, CMP, PHOS, MG, GFR, ANEU #### [place] [address] .NEUABSon 02-13-2022 Neutrophil, Absolute 7.20 10 3/mcL Normal 2.25-8.10 [facility] ([place]) Comment on above: Performed By: #### C BC, ADIFF, CMP, PHOS, MG, GFR, ANEU #### [place] [address] CBCon 02-13-2022 Erythrocyte distribution width (RBC) [Ratio] 16.4 % High 11.5-15.5 [facility] ([place]) Comment on above: Performed By: #### C BC, ADIFF, CMP, PHOS, MG, GFR, ANEU #### [place] [address] Hematocrit (Bld) [Volume fraction] 34.7 % Normal 34.0-46.0 [facility] ([place]) Comment on above: Performed By: #### C BC, ADIFF, CMP, PHOS, MG, GFR, ANEU #### [place] [address] Hgb 11.4 G/dL Low 12.0-16.0 [facility] ([place]) Comment on above: Performed By: #### C BC, ADIFF, CMP, PHOS, MG, GFR, ANEU #### [place] [address] MCH (RBC) [Entitic mass] 26.5 pg Low 27.0-33.0 [facility] ([place]) Comment on above: Performed By: #### C BC, ADIFF, CMP, PHOS, MG, GFR, ANEU #### [place] [address] MCHC 33.0 G/dL Normal 32.0-36.0 [facility] ([place]) Comment on above: Performed By: #### C BC, ADIFF, CMP, PHOS, MG, GFR, ANEU #### [place] [address] MCV (RBC) [Entitic vol] 80.3 fL Normal 80.0-99.0 [facility] ([place]) Comment on above: Performed By: #### C BC, ADIFF, CMP, PHOS, MG, GFR, ANEU #### [place] [address] Platelet 281 10 3/mcL Normal 150-450 [facility] ([place]) Comment on above: Performed By: #### C BC, ADIFF, CMP, PHOS, MG, GFR, ANEU #### [place] [address] Platelet mean volume (Bld) [Entitic vol] 6.8 fL Normal 6.6-10.5 [facility] ([place]) Comment on above: Performed By: #### C BC, ADIFF, CMP, PHOS, MG, GFR, ANEU #### [place] [address] RBC 4.31 10 6/mcL Normal 4.10-5.30 [facility] ([place]) Comment on above: Performed By: #### C BC, ADIFF, CMP, PHOS, MG, GFR, ANEU #### [place] [address] WBC 9.40 10 3/mcL Normal 4.50-10.80 [facility] ([place]) Comment on above: Performed By: #### C BC, ADIFF, CMP, PHOS, MG, GFR, ANEU #### [place] [address] CMPon 02-13-2022 Albumin Level 3.2 G/dL Normal 3.2-4.8 [facility] ([place]) Comment on above: Performed By: #### C BC, ADIFF, CMP, PHOS, MG, GFR, ANEU #### [address] [address] Albumin/Globulin [Mass ratio] 1.1 {ratio} Normal 0.9-1.6 [facility] ([place]) Comment on above: Performed By: #### C BC, ADIFF, CMP, PHOS, MG, GFR, ANEU #### [address] [address] ALP [Catalytic activity/Vol] 84 U/L Normal 38-126 [facility] ([place]) Comment on above: Performed By: #### C BC, ADIFF, CMP, PHOS, MG, GFR, ANEU #### [address] [address] ALT [Catalytic activity/Vol] 20 U/L Normal 10-49 [facility] ([place]) Comment on above: Performed By: #### C BC, ADIFF, CMP, PHOS, MG, GFR, ANEU #### [address] [address] AST [Catalytic activity/Vol] 11 U/L Normal 8-34 [facility] ([place]) Comment on above: Performed By: #### C BC, ADIFF, CMP, PHOS, MG, GFR, ANEU #### [address] [address] Bili Total 1.50 mg/dL High 0.20-1.20 [facility] ([place]) Comment on above: Result Comment: Use of this assay is not recommended for patients undergoing treatment with eltrombopag due to the potential for falsely elevated results. Performed By: #### C BC, ADIFF, CMP, PHOS, MG, GFR, ANEU #### [address] [address] Calcium [Mass/Vol] 8.5 mg/dL Low 8.7-10.4 [facility] ([place]) Comment on above: Result Comment: No te - New Reference Range in effect 20 Performed By: #### C BC, ADIFF, CMP, PHOS, MG, GFR, ANEU #### [address] [address] Chloride [Moles/Vol] 104 mmol/L Normal 98-110 [facility] ([place]) Comment on above: Performed By: #### C BC, ADIFF, CMP, PHOS, MG, GFR, ANEU #### [address] [address] CO2 [Moles/Vol] 24 mmol/L Normal 22-32 [facility] ([place]) Comment on above: Performed By: #### C BC, ADIFF, CMP, PHOS, MG, GFR, ANEU #### [place] [id number] Creatinine [Mass/Vol] 0.45 mg/dL Low 0.50-1.20 [facility] ([place]) Comment on above: Performed By: #### C BC, ADIFF, CMP, PHOS, MG, GFR, ANEU #### [place] [address] Electrolyte Balance 9.0 mEq/L Normal 4.0-15.0 [facility] ([place]) Comment on above: Performed By: #### C BC, ADIFF, CMP, PHOS, MG, GFR, ANEU #### [address] [address] Globulin 2.8 G/dL Normal 1.5-3.8 [facility] ([place]) Comment on above: Performed By: #### C BC, ADIFF, CMP, PHOS, MG, GFR, ANEU #### [address] [address] Glucose [Mass/Vol] 93 mg/dL Normal 70-110 [facility] ([place]) Comment on above: Performed By: #### C BC, ADIFF, CMP, PHOS, MG, GFR, ANEU #### [place] [id number] Potassium [Moles/Vol] 3.6 mmol/L Normal 3.5-5.0 [facility] ([place]) Comment on above: Performed By: #### C BC, ADIFF, CMP, PHOS, MG, GFR, ANEU #### [address] [address] Sodium [Moles/Vol] 137 mmol/L Normal 136-145 [facility] ([place]) Comment on above: Performed By: #### C BC, ADIFF, CMP, PHOS, MG, GFR, ANEU #### [address] [address] Total Protein 6.0 G/dL Normal 5.7-8.2 [facility] ([place]) Comment on above: Result Comment: No te - New Reference Range in effect 20 Performed By: #### C BC, ADIFF, CMP, PHOS, MG, GFR, ANEU #### [address] [address] Urea nitrogen [Mass/Vol] mg/dL Low 8.0-22.0 [facility] ([place]) Comment on above: Performed By: #### C BC, ADIFF, CMP, PHOS, MG, GFR, ANEU #### [address] [address] Urea nitrogen/Creatinine [Mass ratio] mg/mg Normal 10.0-22.0 [facility] ([place]) Comment on above: Performed By: #### C BC, ADIFF, CMP, PHOS, MG, GFR, ANEU #### [address] [address] LABORATORYOrdered By: SYSTEM SYSTEM on 02-13-2022 Albumin BCP dye [Mass/Vol] 3.2 G/dL Invalid Interpretation Code 3.2 - 4.8 G/dL ADM SS Albumin/Globulin [Mass ratio] 1.1 {ratio} Invalid Interpretation Code 0.9 - 1.6 ratio AH ADM SS ALP [Catalytic activity/Vol] 84 U/L Invalid Interpretation Code 38 - 126 U/L AH ADM SS ALT No additional P-5'-P [Catalytic activity/Vol] 20 U/L Invalid Interpretation Code 10 - 49 U/L AH ADM SS AST [Catalytic activity/Vol] 11 U/L Invalid Interpretation Code 8 - 34 U/L AH ADM SS Basophils (Bld) [#/Vol] 0.00 103/mcL Invalid Interpretation Code 0.00 - 0.27 10^3/mcL AH Remisol SS Basophils/100 WBC (Bld) 0.2 % Invalid Interpretation Code 0.0 - 2.5 % AH Remisol SS Bilirubin [Mass/Vol] 1.50 mg/dL Invalid Interpretation Code 0.20 - 1.20 mg/dL AH ADM SS Calcium [Mass/Vol] 8.5 mg/dL Invalid Interpretation Code 8.7 - 10.4 mg/dL AH ADM SS Chloride [Moles/Vol] 104 mmol/L Invalid Interpretation Code 98 - 110 mEq/L AH ADM SS CO2 [Moles/Vol] 24 mmol/L Invalid Interpretation Code 22 - 32 mEq/L AH ADM SS Creatinine [Mass/Vol] 0.45 mg/dL Invalid Interpretation Code 0.50 - 1.20 mg/dL AH ADM SS Electrolyte Balance 9.0 mEq/L Invalid Interpretation Code 4.0 - 15.0 mEq/L AH ADM SS Eosinophils (Bld) [#/Vol] 0.00 103/mcL Invalid Interpretation Code 0.00 - 0.65 10^3/mcL AH Remisol SS Eosinophils/100 WBC (Bld) 0.1 % Invalid Interpretation Code 0.0 - 6.0 % AH Remisol SS Erythrocyte distribution width (RBC) [Ratio] 16.4 % Invalid Interpretation Code 11.5 - 15.5 % AH Remisol SS GFR/1.73 sq M.predicted among blacks MDRD (S/P/Bld) [Vol rate/Area] ml/min/1.73sqm Invalid Interpretation Code AH Chemistry S GFR/1.73 sq M.predicted among non-blacks MDRD (S/P/Bld) [Vol rate/Area] ml/min/1.73sqm Invalid Interpretation Code AH Chemistry S Globulin 2.8 G/dL Invalid Interpretation Code 1.5 - 3.8 G/dL AH ADM SS Glucose [Mass/Vol] 93 mg/dL Invalid Interpretation Code 70 - 110 mg/dL AH ADM SS Hematocrit (Bld) [Volume fraction] 34.7 % Invalid Interpretation Code 34.0 - 46.0 % AH Remisol SS Hemoglobin (Bld) [Mass/Vol] 11.4 G/dL Invalid Interpretation Code 12.0 - 16.0 G/dL AH Remisol SS Lymphocytes (Bld) [#/Vol] 1.40 103/mcL Invalid Interpretation Code 0.90 - 4.32 10^3/mcL AH Remisol SS Lymphocytes/100 WBC (Bld) 14.8 % Invalid Interpretation Code 20.0 - 40.0 % AH Remisol SS Magnesium [Mass/Vol] 1.6 mg/dL Invalid Interpretation Code 1.6 - 2.4 mg/dL AH ADM SS MCH (RBC) [Entitic mass] 26.5 pg Invalid Interpretation Code 27.0 - 33.0 pg AH Remisol SS MCHC (RBC) [Mass/Vol] 33.0 G/dL Invalid Interpretation Code 32.0 - 36.0 G/dL AH Remisol SS MCV (RBC) [Entitic vol] 80.3 fL Invalid Interpretation Code 80.0 - 99.0 fL AH Remisol SS Monocytes (Bld) [#/Vol] 0.80 103/mcL Invalid Interpretation Code 0.09 - 1.40 10^3/mcL AH Remisol SS Monocytes/100 WBC (Bld) 8.5 % Invalid Interpretation Code 2.0 - 13.0 % AH Remisol SS Neutrophils (Bld) [#/Vol] 7.20 103/mcL Invalid Interpretation Code 2.25 - 8.10 10^3/mcL AH Remisol SS Neutrophils/100 WBC (Bld) 76.4 % Invalid Interpretation Code 50.0 - 75.0 % AH Remisol SS Phosphate [Mass/Vol] 3.1 mg/dL Invalid Interpretation Code 2.4 - 5.1 mg/dL AH ADM SS Platelet mean volume (Bld) [Entitic vol] 6.8 fL Invalid Interpretation Code 6.6 - 10.5 fL AH Remisol SS Platelets (Bld) [#/Vol] 281 103/mcL Invalid Interpretation Code 150 - 450 10^3/mcL AH Remisol SS Potassium [Moles/Vol] 3.6 mmol/L Invalid Interpretation Code 3.5 - 5.0 mEq/L AH ADM SS Protein [Mass/Vol] 6.0 G/dL Invalid Interpretation Code 5.7 - 8.2 G/dL AH ADM SS RBC (Bld) [#/Vol] 4.31 106/mcL Invalid Interpretation Code 4.10 - 5.30 10^6/mcL AH Remisol SS Sodium [Moles/Vol] 137 mmol/L Invalid Interpretation Code 136 - 145 mEq/L AH ADM SS Urea nitrogen [Mass/Vol] mg/dL Invalid Interpretation Code 8.0 - 22.0 mg/dL AH ADM SS Urea nitrogen/Creatinine [Mass ratio] ratio Invalid Interpretation Code 10.0 - 22.0 ratio AH ADM SS WBC (Bld) [#/Vol] 9.40 103/mcL Invalid Interpretation Code 4.50 - 10.80 10^3/mcL Remisol SS MGon 02-13-2022 Magnesium [Mass/Vol] 1.6 mg/dL Normal 1.6-2.4 [facility] ([place]) Comment on above: Performed By: #### C BC, ADIFF, CMP, PHOS, MG, GFR, ANEU #### [place] [address] PHOSon 02-13-2022 Phosphate [Mass/Vol] 3.1 mg/dL Normal 2.4-5.1 [facility] ([place]) Comment on above: Result Comment: No te - New Reference Range in effect 20 Performed By: #### C BC, ADIFF, CMP, PHOS, MG, GFR, ANEU #### [address] [address] .GFRon 02-12-2022 GFR >60 Normal [facility] ([place]) Comment on above: Result Comment: GFR Population mean for , Non- Americans Ages 20-29 = 116 mL/min/1.73 sq.m. Ages 30-39 = 107 mL/min/1.73 sq.m. Ages 40-49 = 99 mL/min/1.73 sq.m. Ages 50-59 = 93 mL/min/1.73 sq.m. Ages 60-69 = 85 mL/min/1.73 sq.m. Ages 70+ = 75 mL/min/1.73 sq.m. Chronic Kidney Disease: Less than 60 mL/min/1.73 square meters End Stage Renal Disease: Less than 15 mL/min/1.73 square meters Performed By: #### C BC, ADIFF, CMP, PHOS, MG, GFR, ANEU #### [address] [address] GFR Non- >60 Normal [facility] ([place]) Comment on above: Result Comment: GFR Population mean for , Non- Americans Ages 20-29 = 116 mL/min/1.73 sq.m. Ages 30-39 = 107 mL/min/1.73 sq.m. Ages 40-49 = 99 mL/min/1.73 sq.m. Ages 50-59 = 93 mL/min/1.73 sq.m. Ages 60-69 = 85 mL/min/1.73 sq.m. Ages 70+ = 75 mL/min/1.73 sq.m. Chronic Kidney Disease: Less than 60 mL/min/1.73 square meters End Stage Renal Disease: Less than 15 mL/min/1.73 square meters Performed By: #### C BC, ADIFF, CMP, PHOS, MG, GFR, ANEU #### [place] [address] .Manual Diffon 02-12-2022 Basophil %, Manual 0.0 % Normal 0.0-2.5 [facility] ([place]) Comment on above: Performed By: #### C BC, ADIFF, CMP, PHOS, MG, GFR, ANEU #### [place] [address] Basophil, Abs Manual 0.00 10 3/mcL Normal 0.00-0.27 [facility] ([place]) Comment on above: Performed By: #### C BC, ADIFF, CMP, PHOS, MG, GFR, ANEU #### [place] [address] Cells Counted 100 Normal [facility] ([place]) Comment on above: Performed By: #### C BC, ADIFF, CMP, PHOS, MG, GFR, ANEU #### [place] [address] Eosinophil %, Manual 0.0 % Normal 0.0-6.0 [facility] ([place]) Comment on above: Performed By: #### C BC, ADIFF, CMP, PHOS, MG, GFR, ANEU #### [place] [id number] Eosinophil, Abs Manual 0.00 10 3/mcL Normal 0.00-0.65 [facility] ([place]) Comment on above: Performed By: #### C BC, ADIFF, CMP, PHOS, MG, GFR, ANEU #### [address] [address] Lymphocyte %, Manual 23.0 % Normal 20.0-40.0 [facility] ([place]) Comment on above: Performed By: #### C BC, ADIFF, CMP, PHOS, MG, GFR, ANEU #### [address] [address] Lymphocyte, Abs Manual 1.86 10 3/mcL Normal 0.90-4.32 [facility] ([place]) Comment on above: Performed By: #### C BC, ADIFF, CMP, PHOS, MG, GFR, ANEU #### [address] [address] Monocyte %, Manual 6.0 % Normal 2.0-13.0 [facility] ([place]) Comment on above: Performed By: #### C BC, ADIFF, CMP, PHOS, MG, GFR, ANEU #### [address] [address] Monocyte, Abs Manual 0.49 10 3/mcL Normal 0.09-1.40 [facility] ([place]) Comment on above: Performed By: #### C BC, ADIFF, CMP, PHOS, MG, GFR, ANEU #### [address] [address] Neutrophil %, Manual 71.0 % Normal 50.0-75.0 [facility] ([place]) Comment on above: Performed By: #### C BC, ADIFF, CMP, PHOS, MG, GFR, ANEU #### [address] [address] Neutrophil, Abs Manual 5.75 10 3/mcL Normal 2.25-8.10 [facility] ([place]) Comment on above: Performed By: #### C BC, ADIFF, CMP, PHOS, MG, GFR, ANEU #### [address] [address] .Morphon 02-12-2022 Anisocytosis Ql (Bld) Slight Normal [facility] ([place]) Comment on above: Performed By: #### C BC, ADIFF, CMP, PHOS, MG, GFR, ANEU #### [place] [id number] Ovalocytes Few Normal [facility] ([place]) Comment on above: Performed By: #### C BC, ADIFF, CMP, PHOS, MG, GFR, ANEU #### [place] [address] Platelet Estimate Normal Normal [facility] ([place]) Comment on above: Performed By: #### C BC, ADIFF, CMP, PHOS, MG, GFR, ANEU #### [place] [address] CBCon 02-12-2022 Erythrocyte distribution width (RBC) [Ratio] 16.6 % High 11.5-15.5 [facility] ([place]) Comment on above: Performed By: #### M ORPH, CMP, CBC, MG, DIFF, PHOS, GFR #### [place] [address] Hematocrit (Bld) [Volume fraction] 36.2 % Normal 34.0-46.0 [facility] ([place]) Comment on above: Performed By: #### M ORPH, CMP, CBC, MG, DIFF, PHOS, GFR #### [place] [address] Hgb 11.8 G/dL Low 12.0-16.0 [facility] ([place]) Comment on above: Performed By: #### M ORPH, CMP, CBC, MG, DIFF, PHOS, GFR #### [place] [address] MCH (RBC) [Entitic mass] 26.0 pg Low 27.0-33.0 [facility] ([place]) Comment on above: Performed By: #### M ORPH, CMP, CBC, MG, DIFF, PHOS, GFR #### [place] [address] MCHC 32.5 G/dL Normal 32.0-36.0 [facility] ([place]) Comment on above: Performed By: #### M ORPH, CMP, CBC, MG, DIFF, PHOS, GFR #### [place] [address] MCV (RBC) [Entitic vol] 80.0 fL Normal 80.0-99.0 [facility] ([place]) Comment on above: Performed By: #### M ORPH, CMP, CBC, MG, DIFF, PHOS, GFR #### [place] [address] Platelet 311 10 3/mcL Normal 150-450 [facility] ([place]) Comment on above: Performed By: #### M ORPH, CMP, CBC, MG, DIFF, PHOS, GFR #### [place] [address] Platelet mean volume (Bld) [Entitic vol] 7.6 fL Normal 6.6-10.5 [facility] ([place]) Comment on above: Performed By: #### M ORPH, CMP, CBC, MG, DIFF, PHOS, GFR #### [place] [address] RBC 4.53 10 6/mcL Normal 4.10-5.30 [facility] ([place]) Comment on above: Performed By: #### M ORPH, CMP, CBC, MG, DIFF, PHOS, GFR #### [place] [address] WBC 8.10 10 3/mcL Normal 4.50-10.80 [facility] ([place]) Comment on above: Performed By: #### M ORPH, CMP, CBC, MG, DIFF, PHOS, GFR #### [place] [address] CMPon 02-12-2022 Albumin Level 3.3 G/dL Normal 3.2-4.8 [facility] ([place]) Comment on above: Performed By: #### C BC, ADIFF, CMP, PHOS, MG, GFR, ANEU #### [place] [address] Albumin/Globulin [Mass ratio] 1.2 {ratio} Normal 0.9-1.6 [facility] ([place]) Comment on above: Performed By: #### C BC, ADIFF, CMP, PHOS, MG, GFR, ANEU #### [address] [address] ALP [Catalytic activity/Vol] 81 U/L Normal 38-126 [facility] ([place]) Comment on above: Performed By: #### C BC, ADIFF, CMP, PHOS, MG, GFR, ANEU #### [place] [address] ALT [Catalytic activity/Vol] 26 U/L Normal 10-49 [facility] ([place]) Comment on above: Performed By: #### C BC, ADIFF, CMP, PHOS, MG, GFR, ANEU #### [place] [address] AST [Catalytic activity/Vol] 20 U/L Normal 8-34 [facility] ([place]) Comment on above: Performed By: #### C BC, ADIFF, CMP, PHOS, MG, GFR, ANEU #### [place] [address] Bili Total 1.60 mg/dL High 0.20-1.20 [facility] ([place]) Comment on above: Result Comment: Use of this assay is not recommended for patients undergoing treatment with eltrombopag due to the potential for falsely elevated results. Performed By: #### C BC, ADIFF, CMP, PHOS, MG, GFR, ANEU #### [place] [address] Calcium [Mass/Vol] 7.8 mg/dL Low 8.7-10.4 [facility] ([place]) Comment on above: Result Comment: No te - New Reference Range in effect 20 Performed By: #### C BC, ADIFF, CMP, PHOS, MG, GFR, ANEU #### [place] [address] Chloride [Moles/Vol] 108 mmol/L Normal 98-110 [facility] ([place]) Comment on above: Performed By: #### C BC, ADIFF, CMP, PHOS, MG, GFR, ANEU #### [place] [id number] CO2 [Moles/Vol] 26 mmol/L Normal 22-32 [facility] ([place]) Comment on above: Performed By: #### C BC, ADIFF, CMP, PHOS, MG, GFR, ANEU #### [place] [id number] Creatinine [Mass/Vol] 0.52 mg/dL Normal 0.50-1.20 [facility] ([place]) Comment on above: Performed By: #### C BC, ADIFF, CMP, PHOS, MG, GFR, ANEU #### [place] [address] Electrolyte Balance 6.0 mEq/L Normal 4.0-15.0 [facility] ([place]) Comment on above: Performed By: #### C BC, ADIFF, CMP, PHOS, MG, GFR, ANEU #### [place] [address] Globulin 2.8 G/dL Normal 1.5-3.8 [facility] ([place]) Comment on above: Performed By: #### C BC, ADIFF, CMP, PHOS, MG, GFR, ANEU #### [place] [id number] Glucose [Mass/Vol] 98 mg/dL Normal 70-110 [facility] ([place]) Comment on above: Performed By: #### C BC, ADIFF, CMP, PHOS, MG, GFR, ANEU #### [place] [id number] Potassium [Moles/Vol] 3.6 mmol/L Normal 3.5-5.0 [facility] ([place]) Comment on above: Result Comment: Spec imen slightly hemolyzed. Performed By: #### C BC, ADIFF, CMP, PHOS, MG, GFR, ANEU #### [place] [id number] Sodium [Moles/Vol] 140 mmol/L Normal 136-145 [facility] ([place]) Comment on above: Performed By: #### C BC, ADIFF, CMP, PHOS, MG, GFR, ANEU #### [address] [address] Total Protein 6.1 G/dL Normal 5.7-8.2 [facility] ([place]) Comment on above: Result Comment: No te - New Reference Range in effect 20 Performed By: #### C BC, ADIFF, CMP, PHOS, MG, GFR, ANEU #### [facility] [address] [place] [address] Urea nitrogen [Mass/Vol] mg/dL Low 8.0-22.0 [facility] ([place]) Comment on above: Performed By: #### C BC, ADIFF, CMP, PHOS, MG, GFR, ANEU #### [address] [address] Urea nitrogen/Creatinine [Mass ratio] mg/mg Low 10.0-22.0 [facility] ([place]) Comment on above: Performed By: #### C BC, ADIFF, CMP, PHOS, MG, GFR, ANEU #### [address] [address] Final Surgical Pathology Rep [facility] 02-12-2022 Final Surgical Pathology Report . Pathology Reports Accession: Collected Date/Time: Received Date/Time: Pathologist: [id number] 02/10/2022 19:01 EDT 02/11/2022 07:18 EDT DO JOSTIN SHERMAN Final Surgical Pathology Report DIAGNOSIS: SMALL BOWEL - ILEOSTOMY WITH PATCHY ACUTE AND CHRONIC INFLAMMATION, REACTIVE CHANGES, HEMORRHAGE AND CONGES TION. In some areas ischemic features are noted. Negative for malignancy. CLINICAL INFORMATION: Procedure: EXAM UNDER ANESTHESIA, PROCTOSCOPY, ILEOSTOMY REVERSAL WITH SMALL BOWEL RESECTION Preoperative diagnosis: RECTOVAGINAL FISTULA, ILEOSTOMY Postoperative diagnosis: SAME SPECIMEN: A SMALL BOWEL GROSS DESCRIPTION: A. Received in formalin, labeled with the patients name, Case #[id number], and small bowel is a loop ileostomy overall measuring 13.5 x 9 x 3 cm. The ileostomy opening surrounded by a thin rim of skin and exposed red -pink lobulated mucosa measuring 3 x 3 cm. The ileostomy leads to a looped portion of small bowel measuring 26 cm in length with a diameter ranging from 2 to 4.5 cm. The serosal surface of the portion of small bowel is red -corbett, dusky with no visible sites of per foration. Branching off the ileostomy opening are 2 separate lumens. The longer lumen contains small bowel with mucosa which is green, hemorrhagic with minimal mucosal folds and no identi fied polyps or masses. At the end of the longer segment of small bowel is a staple line. RS -5, A1 -A2-ileostomy opening, A3 -A4-longer dusky portion of small bowel mucosa, A5 -shorter portion of small bowel. Dictated by ANILA BRICENO MICROSCOPIC DESCRIPTION: Slides reviewed. Electronically Signed by Pathology Report verified by [facility] Electronically signed by JOSTIN SHERMAN DO Sign out Date: 02/12/2022 15:42 Performing Lab: [facility], [address] [place] [address] ([place]) LABORATORYOrdered By: SYSTEM SYSTEM on 02-12-2022 Albumin BCP dye [Mass/Vol] 3.3 G/dL Invalid Interpretation Code 3.2 - 4.8 G/dL ADM SS Albumin/Globulin [Mass ratio] 1.2 {ratio} Invalid Interpretation Code 0.9 - 1.6 ratio AH ADM SS ALP [Catalytic activity/Vol] 81 U/L Invalid Interpretation Code 38 - 126 U/L ADM SS ALT No additional P-5'-P [Catalytic activity/Vol] 26 U/L Invalid Interpretation Code 10 - 49 U/L AH ADM SS Anisocytosis Ql (Bld) Slight *NA* (02/12/22 5:20 AM) Invalid Interpretation Code AH Remisol SS AST [Catalytic activity/Vol] 20 U/L Invalid Interpretation Code 8 - 34 U/L AH ADM SS Basophils (Bld) [#/Vol] 0.00 103/mcL Invalid Interpretation Code 0.00 - 0.27 10^3/mcL AH Remisol SS Basophils/100 WBC (Bld) 0.0 % Invalid Interpretation Code 0.0 - 2.5 % AH Remisol SS Bilirubin [Mass/Vol] 1.60 mg/dL Invalid Interpretation Code 0.20 - 1.20 mg/dL AH ADM SS Calcium [Mass/Vol] 7.8 mg/dL Invalid Interpretation Code 8.7 - 10.4 mg/dL AH ADM SS Cells Counted Total (Unsp spec) [#] 100 Invalid Interpretation Code AH Remisol SS Chloride [Moles/Vol] 108 mmol/L Invalid Interpretation Code 98 - 110 mEq/L AH ADM SS CO2 [Moles/Vol] 26 mmol/L Invalid Interpretation Code 22 - 32 mEq/L AH ADM SS Creatinine [Mass/Vol] 0.52 mg/dL Invalid Interpretation Code 0.50 - 1.20 mg/dL AH ADM SS Electrolyte Balance 6.0 mEq/L Invalid Interpretation Code 4.0 - 15.0 mEq/L AH ADM SS Eosinophils (Bld) [#/Vol] 0.00 103/mcL Invalid Interpretation Code 0.00 - 0.65 10^3/mcL AH Remisol SS Eosinophils/100 WBC (Bld) 0.0 % Invalid Interpretation Code 0.0 - 6.0 % AH Remisol SS Erythrocyte distribution width (RBC) [Ratio] 16.6 % Invalid Interpretation Code 11.5 - 15.5 % AH Remisol SS GFR/1.73 sq M.predicted among blacks MDRD (S/P/Bld) [Vol rate/Area] ml/min/1.73sqm Invalid Interpretation Code AH Chemistry S GFR/1.73 sq M.predicted among non-blacks MDRD (S/P/Bld) [Vol rate/Area] ml/min/1.73sqm Invalid Interpretation Code AH Chemistry S Globulin 2.8 G/dL Invalid Interpretation Code 1.5 - 3.8 G/dL ADM SS Glucose [Mass/Vol] 98 mg/dL Invalid Interpretation Code 70 - 110 mg/dL AH ADM SS Hematocrit (Bld) [Volume fraction] 36.2 % Invalid Interpretation Code 34.0 - 46.0 % AH Remisol SS Hemoglobin (Bld) [Mass/Vol] 11.8 G/dL Invalid Interpretation Code 12.0 - 16.0 G/dL AH Remisol SS Lymphocytes (Bld) [#/Vol] 1.86 103/mcL Invalid Interpretation Code 0.90 - 4.32 10^3/mcL AH Remisol SS Lymphocytes/100 WBC (Bld) 23.0 % Invalid Interpretation Code 20.0 - 40.0 % AH Remisol SS Magnesium [Mass/Vol] 1.5 mg/dL Invalid Interpretation Code 1.6 - 2.4 mg/dL AH ADM SS MCH (RBC) [Entitic mass] 26.0 pg Invalid Interpretation Code 27.0 - 33.0 pg AH Remisol SS MCHC (RBC) [Mass/Vol] 32.5 G/dL Invalid Interpretation Code 32.0 - 36.0 G/dL AH Remisol SS MCV (RBC) [Entitic vol] 80.0 fL Invalid Interpretation Code 80.0 - 99.0 fL AH Remisol SS Monocytes (Bld) [#/Vol] 0.49 103/mcL Invalid Interpretation Code 0.09 - 1.40 10^3/mcL AH Remisol SS Monocytes/100 WBC (Bld) 6.0 % Invalid Interpretation Code 2.0 - 13.0 % AH Remisol SS Neutrophils (Bld) [#/Vol] 5.75 103/mcL Invalid Interpretation Code 2.25 - 8.10 10^3/mcL AH Remisol SS Neutrophils/100 WBC (Bld) 71.0 % Invalid Interpretation Code 50.0 - 75.0 % AH Remisol SS Ovalocytes LM Ql (Bld) Few *NA* (02/12/22 5:20 AM) Invalid Interpretation Code AH Remisol SS Phosphate [Mass/Vol] 2.2 mg/dL Invalid Interpretation Code 2.4 - 5.1 mg/dL AH ADM SS Platelet mean volume (Bld) [Entitic vol] 7.6 fL Invalid Interpretation Code 6.6 - 10.5 fL AH Remisol SS Platelets (Bld) [#/Vol] 311 103/mcL Invalid Interpretation Code 150 - 450 10^3/mcL AH Remisol SS Platelets LM Ql (Bld) Normal *NA* (02/12/22 5:20 AM) Invalid Interpretation Code AH Remisol SS Potassium [Moles/Vol] 3.6 mmol/L Invalid Interpretation Code 3.5 - 5.0 mEq/L AH ADM SS Comment on above: Result Comment: Spec imen slightly hemolyzed. Protein [Mass/Vol] 6.1 G/dL Invalid Interpretation Code 5.7 - 8.2 G/dL AH ADM SS RBC (Bld) [#/Vol] 4.53 106/mcL Invalid Interpretation Code 4.10 - 5.30 10^6/mcL AH Remisol SS Sodium [Moles/Vol] 140 mmol/L Invalid Interpretation Code 136 - 145 mEq/L ADM SS Urea nitrogen [Mass/Vol] mg/dL Invalid Interpretation Code 8.0 - 22.0 mg/dL AH ADM SS Urea nitrogen/Creatinine [Mass ratio] ratio Invalid Interpretation Code 10.0 - 22.0 ratio AH ADM SS WBC (Bld) [#/Vol] 8.10 103/mcL Invalid Interpretation Code 4.50 - 10.80 10^3/mcL Remisol SS MGon 02-12-2022 Magnesium [Mass/Vol] 1.5 mg/dL Low 1.6-2.4 [facility] ([place]) Comment on above: Performed By: #### M ORPH, CMP, CBC, MG, DIFF, PHOS, GFR #### [place] [address] PHOSon 02-12-2022 Phosphate [Mass/Vol] 2.2 mg/dL Low 2.4-5.1 [facility] ([place]) Comment on above: Result Comment: No te - New Reference Range in effect 20 Performed By: #### M ORPH, CMP, CBC, MG, DIFF, PHOS, GFR #### [address] [address] .Auto Diffon 02-11-2022 Basophil, Absolute 0.00 10 3/mcL Normal 0.00-0.27 [facility] ([place]) Comment on above: Performed By: #### C BC, ADIFF, CMP, PHOS, MG, GFR, ANEU #### [place] [address] Basophils/100 WBC (Bld) 0.2 % Normal 0.0-2.5 [facility] ([place]) Comment on above: Performed By: #### C BC, ADIFF, CMP, PHOS, MG, GFR, ANEU #### [place] [address] Eosinophil, Absolute 0.00 10 3/mcL Normal 0.00-0.65 [facility] ([place]) Comment on above: Performed By: #### C BC, ADIFF, CMP, PHOS, MG, GFR, ANEU #### [address] [address] Eosinophils/100 WBC (Bld) 0.1 % Normal 0.0-6.0 [facility] ([place]) Comment on above: Performed By: #### C BC, ADIFF, CMP, PHOS, MG, GFR, ANEU #### [address] [address] Lymphocyte, Absolute 0.70 10 3/mcL Low 0.90-4.32 [facility] ([place]) Comment on above: Performed By: #### C BC, ADIFF, CMP, PHOS, MG, GFR, ANEU #### [address] [address] Lymphocytes/100 WBC (Bld) 5.9 % Low 20.0-40.0 [facility] ([place]) Comment on above: Performed By: #### C BC, ADIFF, CMP, PHOS, MG, GFR, ANEU #### [address] [address] Monocyte, Absolute 0.30 10 3/mcL Normal 0.09-1.40 [facility] ([place]) Comment on above: Performed By: #### C BC, ADIFF, CMP, PHOS, MG, GFR, ANEU #### [address] [address] Monocytes/100 WBC (Bld) 2.6 % Normal 2.0-13.0 [facility] ([place]) Comment on above: Performed By: #### C BC, ADIFF, CMP, PHOS, MG, GFR, ANEU #### [address] [address] Neutrophils/100 WBC (Bld) 91.2 % High 50.0-75.0 [facility] ([place]) Comment on above: Performed By: #### C BC, ADIFF, CMP, PHOS, MG, GFR, ANEU #### [address] [address] .GFRon 02-11-2022 GFR >60 Normal [facility] ([place]) Comment on above: Result Comment: GFR Population mean for , Non- Americans Ages 20-29 = 116 mL/min/1.73 sq.m. Ages 30-39 = 107 mL/min/1.73 sq.m. Ages 40-49 = 99 mL/min/1.73 sq.m. Ages 50-59 = 93 mL/min/1.73 sq.m. Ages 60-69 = 85 mL/min/1.73 sq.m. Ages 70+ = 75 mL/min/1.73 sq.m. Chronic Kidney Disease: Less than 60 mL/min/1.73 square meters End Stage Renal Disease: Less than 15 mL/min/1.73 square meters Performed By: #### C BC, ADIFF, CMP, PHOS, MG, GFR, ANEU #### [address] [address] GFR Non- >60 Normal [facility] ([place]) Comment on above: Result Comment: GFR Population mean for , Non- Americans Ages 20-29 = 116 mL/min/1.73 sq.m. Ages 30-39 = 107 mL/min/1.73 sq.m. Ages 40-49 = 99 mL/min/1.73 sq.m. Ages 50-59 = 93 mL/min/1.73 sq.m. Ages 60-69 = 85 mL/min/1.73 sq.m. Ages 70+ = 75 mL/min/1.73 sq.m. Chronic Kidney Disease: Less than 60 mL/min/1.73 square meters End Stage Renal Disease: Less than 15 mL/min/1.73 square meters Performed By: #### C BC, ADIFF, CMP, PHOS, MG, GFR, ANEU #### [address] [address] .NEUABSon 02-11-2022 Neutrophil, Absolute 11.30 10 3/mcL High 2.25-8.10 [facility] ([place]) Comment on above: Performed By: #### C BC, ADIFF, CMP, PHOS, MG, GFR, ANEU #### [address] [address] CBCon 02-11-2022 Erythrocyte distribution width (RBC) [Ratio] 16.3 % High 11.5-15.5 [facility] ([place]) Comment on above: Performed By: #### C BC, ADIFF, CMP, PHOS, MG, GFR, ANEU #### [place] [address] Hematocrit (Bld) [Volume fraction] 39.3 % Normal 34.0-46.0 [facility] ([place]) Comment on above: Performed By: #### C BC, ADIFF, CMP, PHOS, MG, GFR, ANEU #### [place] [address] Hgb 12.8 G/dL Normal 12.0-16.0 [facility] ([place]) Comment on above: Performed By: #### C BC, ADIFF, CMP, PHOS, MG, GFR, ANEU #### [place] [address] MCH (RBC) [Entitic mass] 26.0 pg Low 27.0-33.0 [facility] ([place]) Comment on above: Performed By: #### C BC, ADIFF, CMP, PHOS, MG, GFR, ANEU #### [place] [address] MCHC 32.5 G/dL Normal 32.0-36.0 [facility] ([place]) Comment on above: Performed By: #### C BC, ADIFF, CMP, PHOS, MG, GFR, ANEU #### [place] [address] MCV (RBC) [Entitic vol] 80.0 fL Normal 80.0-99.0 [facility] ([place]) Comment on above: Performed By: #### C BC, ADIFF, CMP, PHOS, MG, GFR, ANEU #### [place] [address] Platelet 280 10 3/mcL Normal 150-450 [facility] ([place]) Comment on above: Performed By: #### C BC, ADIFF, CMP, PHOS, MG, GFR, ANEU #### [place] [address] Platelet mean volume (Bld) [Entitic vol] 6.8 fL Normal 6.6-10.5 [facility] ([place]) Comment on above: Performed By: #### C BC, ADIFF, CMP, PHOS, MG, GFR, ANEU #### [place] [id number] RBC 4.91 10 6/mcL Normal 4.10-5.30 [facility] ([place]) Comment on above: Performed By: #### C BC, ADIFF, CMP, PHOS, MG, GFR, ANEU #### [place] [id number] WBC 12.40 10 3/mcL High 4.50-10.80 [facility] ([place]) Comment on above: Performed By: #### C BC, ADIFF, CMP, PHOS, MG, GFR, ANEU #### [place] [address] CMPon 02-11-2022 Albumin Level 3.5 G/dL Normal 3.2-4.8 [facility] ([place]) Comment on above: Performed By: #### C BC, ADIFF, CMP, PHOS, MG, GFR, ANEU #### [place] [address] Albumin/Globulin [Mass ratio] 1.2 {ratio} Normal 0.9-1.6 [facility] ([place]) Comment on above: Performed By: #### C BC, ADIFF, CMP, PHOS, MG, GFR, ANEU #### [place] [address] ALP [Catalytic activity/Vol] 89 U/L Normal 38-126 [facility] ([place]) Comment on above: Performed By: #### C BC, ADIFF, CMP, PHOS, MG, GFR, ANEU #### [place] [address] ALT [Catalytic activity/Vol] 38 U/L Normal 10-49 [facility] ([place]) Comment on above: Performed By: #### C BC, ADIFF, CMP, PHOS, MG, GFR, ANEU #### [place] [address] AST [Catalytic activity/Vol] 24 U/L Normal 8-34 [facility] ([place]) Comment on above: Performed By: #### C BC, ADIFF, CMP, PHOS, MG, GFR, ANEU #### [address] [address] Bili Total 1.30 mg/dL High 0.20-1.20 [facility] ([place]) Comment on above: Result Comment: Use of this assay is not recommended for patients undergoing treatment with eltrombopag due to the potential for falsely elevated results. Performed By: #### C BC, ADIFF, CMP, PHOS, MG, GFR, ANEU #### [address] [address] BUN/Creatinine Ratio 17.9 ratio Normal 10.0-22.0 [facility] ([place]) Comment on above: Performed By: #### C BC, ADIFF, CMP, PHOS, MG, GFR, ANEU #### [address] [address] Calcium [Mass/Vol] 8.6 mg/dL Low 8.7-10.4 [facility] ([place]) Comment on above: Result Comment: No te - New Reference Range in effect 20 Performed By: #### C BC, ADIFF, CMP, PHOS, MG, GFR, ANEU #### [address] [address] Chloride [Moles/Vol] 110 mmol/L Normal 98-110 [facility] ([place]) Comment on above: Performed By: #### C BC, ADIFF, CMP, PHOS, MG, GFR, ANEU #### [address] [address] CO2 [Moles/Vol] 20 mmol/L Low 22-32 [facility] ([place]) Comment on above: Performed By: #### C BC, ADIFF, CMP, PHOS, MG, GFR, ANEU #### [address] [address] Creatinine [Mass/Vol] 0.39 mg/dL Low 0.50-1.20 [facility] ([place]) Comment on above: Performed By: #### C BC, ADIFF, CMP, PHOS, MG, GFR, ANEU #### [address] [address] Electrolyte Balance 9.0 mEq/L Normal 4.0-15.0 [facility] ([place]) Comment on above: Performed By: #### C BC, ADIFF, CMP, PHOS, MG, GFR, ANEU #### [address] [address] Globulin 2.9 G/dL Normal 1.5-3.8 [facility] ([place]) Comment on above: Performed By: #### C BC, ADIFF, CMP, PHOS, MG, GFR, ANEU #### [place] [id number] Glucose [Mass/Vol] 136 mg/dL High 70-110 [facility] ([place]) Comment on above: Performed By: #### C BC, ADIFF, CMP, PHOS, MG, GFR, ANEU #### [place] [id number] Potassium [Moles/Vol] 5.1 mmol/L High 3.5-5.0 [facility] ([place]) Comment on above: Performed By: #### C BC, ADIFF, CMP, PHOS, MG, GFR, ANEU #### [place] [id number] Sodium [Moles/Vol] 139 mmol/L Normal 136-145 [facility] ([place]) Comment on above: Performed By: #### C BC, ADIFF, CMP, PHOS, MG, GFR, ANEU #### [address] [address] Total Protein 6.4 G/dL Normal 5.7-8.2 [facility] ([place]) Comment on above: Result Comment: No te - New Reference Range in effect 20 Performed By: #### C BC, ADIFF, CMP, PHOS, MG, GFR, ANEU #### [place] [id number] Urea nitrogen [Mass/Vol] 7.0 mg/dL Low 8.0-22.0 [facility] ([place]) Comment on above: Performed By: #### C BC, ADIFF, CMP, PHOS, MG, GFR, ANEU #### [address] [address] LABORATORYOrdered By: SYSTEM SYSTEM on 02-11-2022 Basophils (Bld) [#/Vol] 0.00 103/mcL Invalid Interpretation Code 0.00 - 0.27 10^3/mcL AH Remisol SS Basophils/100 WBC (Bld) 0.2 % Invalid Interpretation Code 0.0 - 2.5 % AH Remisol SS Eosinophils (Bld) [#/Vol] 0.00 103/mcL Invalid Interpretation Code 0.00 - 0.65 10^3/mcL AH Remisol SS Eosinophils/100 WBC (Bld) 0.1 % Invalid Interpretation Code 0.0 - 6.0 % AH Remisol SS Lymphocytes (Bld) [#/Vol] 0.70 103/mcL Invalid Interpretation Code 0.90 - 4.32 10^3/mcL AH Remisol SS Lymphocytes/100 WBC (Bld) 5.9 % Invalid Interpretation Code 20.0 - 40.0 % AH Remisol SS Monocytes (Bld) [#/Vol] 0.30 103/mcL Invalid Interpretation Code 0.09 - 1.40 10^3/mcL AH Remisol SS Monocytes/100 WBC (Bld) 2.6 % Invalid Interpretation Code 2.0 - 13.0 % AH Remisol SS Neutrophils (Bld) [#/Vol] 11.30 103/mcL Invalid Interpretation Code 2.25 - 8.10 10^3/mcL AH Remisol SS Neutrophils/100 WBC (Bld) 91.2 % Invalid Interpretation Code 50.0 - 75.0 % AH Remisol SS MGon 02-11-2022 Magnesium [Mass/Vol] 1.6 mg/dL Normal 1.6-2.4 [facility] ([place]) Comment on above: Performed By: #### C BC, ADIFF, CMP, PHOS, MG, GFR, ANEU #### [address] [address] PHOSon 02-11-2022 Phosphate [Mass/Vol] 2.4 mg/dL Normal 2.4-5.1 [facility] ([place]) Comment on above: Result Comment: No te - New Reference Range in effect 20 Performed By: #### C BC, ADIFF, CMP, PHOS, MG, GFR, ANEU #### [address] [address] .Auto Diffon 02-10-2022 Basophil, Absolute 0.00 10 3/mcL Normal 0.00-0.27 [facility] ([place]) Comment on above: Performed By: #### C BC, ADIFF, CMP, PHOS, MG, GFR, ANEU #### [address] [address] Basophils/100 WBC (Bld) 0.6 % Normal 0.0-2.5 [facility] ([place]) Comment on above: Performed By: #### C BC, ADIFF, CMP, PHOS, MG, GFR, ANEU #### [address] [address] Eosinophil, Absolute 0.10 10 3/mcL Normal 0.00-0.65 [facility] ([place]) Comment on above: Performed By: #### C BC, ADIFF, CMP, PHOS, MG, GFR, ANEU #### [address] [address] Eosinophils/100 WBC (Bld) 1.0 % Normal 0.0-6.0 [facility] ([place]) Comment on above: Performed By: #### C BC, ADIFF, CMP, PHOS, MG, GFR, ANEU #### [address] [address] Lymphocyte, Absolute 1.80 10 3/mcL Normal 0.90-4.32 [facility] ([place]) Comment on above: Performed By: #### C BC, ADIFF, CMP, PHOS, MG, GFR, ANEU #### [address] [address] Lymphocytes/100 WBC (Bld) 28.0 % Normal 20.0-40.0 [facility] ([place]) Comment on above: Performed By: #### C BC, ADIFF, CMP, PHOS, MG, GFR, ANEU #### [address] [address] Monocyte, Absolute 0.40 10 3/mcL Normal 0.09-1.40 [facility] ([place]) Comment on above: Performed By: #### C BC, ADIFF, CMP, PHOS, MG, GFR, ANEU #### [address] [address] Monocytes/100 WBC (Bld) 5.6 % Normal 2.0-13.0 [facility] ([place]) Comment on above: Performed By: #### C BC, ADIFF, CMP, PHOS, MG, GFR, ANEU #### [address] [address] Neutrophils/100 WBC (Bld) 64.8 % Normal 50.0-75.0 [facility] ([place]) Comment on above: Performed By: #### C BC, ADIFF, CMP, PHOS, MG, GFR, ANEU #### [address] [address] .GFRon 02-10-2022 GFR Non- >60 Normal [facility] ([place]) Comment on above: Result Comment: GFR Population mean for , Non- Americans Ages 20-29 = 116 mL/min/1.73 sq.m. Ages 30-39 = 107 mL/min/1.73 sq.m. Ages 40-49 = 99 mL/min/1.73 sq.m. Ages 50-59 = 93 mL/min/1.73 sq.m. Ages 60-69 = 85 mL/min/1.73 sq.m. Ages 70+ = 75 mL/min/1.73 sq.m. Chronic Kidney Disease: Less than 60 mL/min/1.73 square meters End Stage Renal Disease: Less than 15 mL/min/1.73 square meters Performed By: #### C BC, ADIFF, CMP, PHOS, MG, GFR, ANEU #### [address] [address] GFR >60 Normal [facility] ([place]) Comment on above: Result Comment: GFR Population mean for , Non- Americans Ages 20-29 = 116 mL/min/1.73 sq.m. Ages 30-39 = 107 mL/min/1.73 sq.m. Ages 40-49 = 99 mL/min/1.73 sq.m. Ages 50-59 = 93 mL/min/1.73 sq.m. Ages 60-69 = 85 mL/min/1.73 sq.m. Ages 70+ = 75 mL/min/1.73 sq.m. Chronic Kidney Disease: Less than 60 mL/min/1.73 square meters End Stage Renal Disease: Less than 15 mL/min/1.73 square meters Performed By: #### C BC, ADIFF, CMP, PHOS, MG, GFR, ANEU #### [address] [address] .NEUABSon 02-10-2022 Neutrophil, Absolute 4.20 10 3/mcL Normal 2.25-8.10 [facility] ([place]) Comment on above: Performed By: #### C BC, ADIFF, CMP, PHOS, MG, GFR, ANEU #### [place] [address] ABO/Rh (Gel)on 02-10-2022 ABO/Rh Interp Positive Invalid Interpretation Code [facility] ([place]) Comment on above: Performed By: #### C BC, ADIFF, CMP, PHOS, MG, GFR, ANEU #### [place] [id number] ABS (Gel)on 02-10-2022 ABSC Interp (Gel) Negative Normal [facility] ([place]) Comment on above: Performed By: #### C BC, ADIFF, CMP, PHOS, MG, GFR, ANEU #### [address] [address] CBCon 02-10-2022 Erythrocyte distribution width (RBC) [Ratio] 16.9 % High 11.5-15.5 [facility] ([place]) Comment on above: Performed By: #### C BC, ADIFF, CMP, PHOS, MG, GFR, ANEU #### [place] [address] Hematocrit (Bld) [Volume fraction] 39.5 % Normal 34.0-46.0 [facility] ([place]) Comment on above: Performed By: #### C BC, ADIFF, CMP, PHOS, MG, GFR, ANEU #### [place] [address] Hgb 13.2 G/dL Normal 12.0-16.0 [facility] ([place]) Comment on above: Performed By: #### C BC, ADIFF, CMP, PHOS, MG, GFR, ANEU #### [place] [address] MCH (RBC) [Entitic mass] 26.4 pg Low 27.0-33.0 [facility] ([place]) Comment on above: Performed By: #### C BC, ADIFF, CMP, PHOS, MG, GFR, ANEU #### [place] [address] MCHC 33.5 G/dL Normal 32.0-36.0 [facility] ([place]) Comment on above: Performed By: #### C BC, ADIFF, CMP, PHOS, MG, GFR, ANEU #### [place] [address] MCV (RBC) [Entitic vol] 78.9 fL Low 80.0-99.0 [facility] ([place]) Comment on above: Performed By: #### C BC, ADIFF, CMP, PHOS, MG, GFR, ANEU #### [place] [address] Platelet 316 10 3/mcL Normal 150-450 [facility] ([place]) Comment on above: Performed By: #### C BC, ADIFF, CMP, PHOS, MG, GFR, ANEU #### [place] [address] Platelet mean volume (Bld) [Entitic vol] 6.5 fL Low 6.6-10.5 [facility] ([place]) Comment on above: Performed By: #### C BC, ADIFF, CMP, PHOS, MG, GFR, ANEU #### [place] [address] RBC 5.01 10 6/mcL Normal 4.10-5.30 [facility] ([place]) Comment on above: Performed By: #### C BC, ADIFF, CMP, PHOS, MG, GFR, ANEU #### [address] [address] WBC 6.50 10 3/mcL Normal 4.50-10.80 [facility] ([place]) Comment on above: Performed By: #### C BC, ADIFF, CMP, PHOS, MG, GFR, ANEU #### [place] [address] CMPon 02-10-2022 Albumin Level 3.9 G/dL Normal 3.2-4.8 [facility] ([place]) Comment on above: Performed By: #### C BC, ADIFF, CMP, PHOS, MG, GFR, ANEU #### [place] [address] Albumin/Globulin [Mass ratio] 1.3 {ratio} Normal 0.9-1.6 [facility] ([place]) Comment on above: Performed By: #### C BC, ADIFF, CMP, PHOS, MG, GFR, ANEU #### [place] [address] ALP [Catalytic activity/Vol] 96 U/L Normal 38-126 [facility] ([place]) Comment on above: Performed By: #### C BC, ADIFF, CMP, PHOS, MG, GFR, ANEU #### [place] [id number] ALT [Catalytic activity/Vol] 51 U/L High 10-49 [facility] ([place]) Comment on above: Performed By: #### C BC, ADIFF, CMP, PHOS, MG, GFR, ANEU #### [place] [id number] AST [Catalytic activity/Vol] 43 U/L High 8-34 [facility] ([place]) Comment on above: Performed By: #### C BC, ADIFF, CMP, PHOS, MG, GFR, ANEU #### [place] [address] Bili Total 1.20 mg/dL Normal 0.20-1.20 [facility] ([place]) Comment on above: Result Comment: Use of this assay is not recommended for patients undergoing treatment with eltrombopag due to the potential for falsely elevated results. Performed By: #### C BC, ADIFF, CMP, PHOS, MG, GFR, ANEU #### [address] [address] BUN/Creatinine Ratio 16.7 ratio Normal 10.0-22.0 [facility] ([place]) Comment on above: Performed By: #### C BC, ADIFF, CMP, PHOS, MG, GFR, ANEU #### [address] [address] Calcium [Mass/Vol] 9.4 mg/dL Normal 8.7-10.4 [facility] ([place]) Comment on above: Result Comment: No te - New Reference Range in effect 20 Performed By: #### C BC, ADIFF, CMP, PHOS, MG, GFR, ANEU #### [place] [id number] Chloride [Moles/Vol] 106 mmol/L Normal 98-110 [facility] ([place]) Comment on above: Performed By: #### C BC, ADIFF, CMP, PHOS, MG, GFR, ANEU #### [address] [address] CO2 [Moles/Vol] 26 mmol/L Normal 22-32 [facility] ([place]) Comment on above: Performed By: #### C BC, ADIFF, CMP, PHOS, MG, GFR, ANEU #### [address] [address] Creatinine [Mass/Vol] 0.48 mg/dL Low 0.50-1.20 [facility] ([place]) Comment on above: Performed By: #### C BC, ADIFF, CMP, PHOS, MG, GFR, ANEU #### [address] [address] Electrolyte Balance 8.0 mEq/L Normal 4.0-15.0 [facility] ([place]) Comment on above: Performed By: #### C BC, ADIFF, CMP, PHOS, MG, GFR, ANEU #### [address] [address] Globulin 3.1 G/dL Normal 1.5-3.8 [facility] ([place]) Comment on above: Performed By: #### C BC, ADIFF, CMP, PHOS, MG, GFR, ANEU #### [place] [id number] Glucose [Mass/Vol] 80 mg/dL Normal 70-110 [facility] ([place]) Comment on above: Performed By: #### C BC, ADIFF, CMP, PHOS, MG, GFR, ANEU #### [place] [address] Potassium [Moles/Vol] 4.6 mmol/L Normal 3.5-5.0 [facility] ([place]) Comment on above: Result Comment: Spec imen slightly hemolyzed. Performed By: #### C BC, ADIFF, CMP, PHOS, MG, GFR, ANEU #### [place] [address] Sodium [Moles/Vol] 140 mmol/L Normal 136-145 [facility] ([place]) Comment on above: Performed By: #### C BC, ADIFF, CMP, PHOS, MG, GFR, ANEU #### [place] [address] Total Protein 7.0 G/dL Normal 5.7-8.2 [facility] ([place]) Comment on above: Result Comment: No te - New Reference Range in effect 20 Performed By: #### C BC, ADIFF, CMP, PHOS, MG, GFR, ANEU #### [place] [address] Urea nitrogen [Mass/Vol] 8.0 mg/dL Normal 8.0-22.0 [facility] ([place]) Comment on above: Performed By: #### C BC, ADIFF, CMP, PHOS, MG, GFR, ANEU #### [place] [address] LABORATORYOrdered By: Bing Conley on 02-10-2022 ABO and Rh group Nom (Bld) Blood group A Rh(D) positive Invalid Interpretation Code AH BB Auto SS Blood group antibody screen Ql NEG (02/10/22 1:43 PM) Invalid Interpretation Code AH BB Auto SS LABORATORYOrdered By: Luciana miramontes on 02-10-2022 Beta HCG ( test) Ql (U) Negative (02/10/22 1:41 PM) [facility] Work Phone: Clinical Summary: MiguelAnthony lewis 11-18-2021 MC75 OP Visit Invalid Interpretation Code [facility] Work Phone: Office Visit: New - 1st visi t with practice, Rm: 2on 11-18-2021 NEGATED: Highlighted rowxray history of the foot on 11/13/2021 at [facility] Invalid Interpretation Code [facility] Work Phone: Clinical Lists Update: Prelo ad Extendedon 11-15-2021 Tobacco smoking status Tobacco smoking status Invalid Interpretation Code [facility] Work Phone: Clinical Summary: Scanned Hi story Summaryon 11-15-2021 brother(s) of patient alive or I do not have any brothers. My brother(s)' health history is unknown. Invalid Interpretation Code [facility] Work Phone: comments about allergies Morphine. Invalid Interpretation Code [facility] Work Phone: Data entered by patient exercise frequency 5 days per week Invalid Interpretation Code [facility] Work Phone: Data entered by patient exercise type walking Invalid Interpretation Code [facility] Work Phone: Data entered by patient, additional medical problems complications-ileostomy Invalid Interpretation Code [facility] Work Phone: data entered by patient, alcohol (ethanol or ETOH) use No Invalid Interpretation Code [facility] Work Phone: Data entered by patient, allergy list Animals Dust mites Mold Plant pollens (Hay Fever) Peanuts Invalid Interpretation Code [facility] Work Phone: Data Entered by Patient, Current Medications Taking I am not taking any medications, vitamins or supplements. Invalid Interpretation Code [facility] Work Phone: data entered by patient, drug (of abuse) use No Invalid Interpretation Code [facility] Work Phone: data entered by patient, Employer Name unemployed Invalid Interpretation Code [facility] Work Phone: data entered by patient, exercise history Yes Invalid Interpretation Code [facility] Work Phone: data entered by patient, father's medical history Diabetes - insulin dependent Invalid Interpretation Code [facility] Work Phone: data entered by patient, mother's medical history Arthritis Obesity Invalid Interpretation Code [facility] Work Phone: data entered by patient, past medical history Anxiety Obesity Invalid Interpretation Code [facility] Work Phone: data entered by patient, social history, current smoker former smoker Invalid Interpretation Code [facility] Work Phone: data entered by patient, social history, former smoker 2016 Invalid Interpretation Code [facility] Work Phone: data entered by patient, social history, marital status Invalid Interpretation Code [facility] Work Phone: father of patient is alive or Alive Invalid Interpretation Code [facility] Work Phone: father's medical history, comments Not quite sure Invalid Interpretation Code [facility] Work Phone: Housing Type: apartment, house, alf, trailer, none apartment Invalid Interpretation Code [facility] Work Phone: housing unit size (asthma environmental history, housing) (from single family to don't know) 1 floor Invalid Interpretation Code [facility] Work Phone: mother of patient is alive or Alive Invalid Interpretation Code [facility] Work Phone: Number of dependent children Yes Invalid Interpretation Code [facility] Work Phone: Web entered surgical history comments Gamaliel teeth, ileostomy, vagina fisutal repair ??[address] [facility] Work Phone: LABORATORYOrdered By: SYSTEM SYSTEM on 09-09-2021 Albumin BCP dye [Mass/Vol] 3.4 G/dL Invalid Interpretation Code 3.2 - 4.8 G/dL AH ADM SS Albumin/Globulin [Mass ratio] 1.1 {ratio} Invalid Interpretation Code 0.9 - 1.6 ratio AH ADM SS ALP [Catalytic activity/Vol] 75 U/L Invalid Interpretation Code 38 - 126 U/L AH ADM SS ALT No additional P-5'-P [Catalytic activity/Vol] 14 U/L Invalid Interpretation Code 10 - 49 U/L AH ADM SS AST [Catalytic activity/Vol] 15 U/L Invalid Interpretation Code 8 - 34 U/L AH ADM SS Basophils (Bld) [#/Vol] 0.00 103/mcL Invalid Interpretation Code 0.00 - 0.27 10^3/mcL AH Remisol SS Basophils/100 WBC (Bld) 0.5 % Invalid Interpretation Code 0.0 - 2.5 % AH Remisol SS Bilirubin [Mass/Vol] 0.40 mg/dL Invalid Interpretation Code 0.20 - 1.20 mg/dL AH ADM SS Calcium [Mass/Vol] 9.0 mg/dL Invalid Interpretation Code 8.7 - 10.4 mg/dL AH ADM SS Chloride [Moles/Vol] 108 mmol/L Invalid Interpretation Code 98 - 110 mEq/L AH ADM SS CO2 [Moles/Vol] 22 mmol/L Invalid Interpretation Code 22 - 32 mEq/L AH ADM SS Creatinine [Mass/Vol] 0.70 mg/dL Invalid Interpretation Code 0.50 - 1.20 mg/dL AH ADM SS Electrolyte Balance 10.0 mEq/L Invalid Interpretation Code 4.0 - 15.0 mEq/L AH ADM SS Eosinophils (Bld) [#/Vol] 0.10 103/mcL Invalid Interpretation Code 0.00 - 0.65 10^3/mcL AH Remisol SS Eosinophils/100 WBC (Bld) 0.9 % Invalid Interpretation Code 0.0 - 6.0 % AH Remisol SS Erythrocyte distribution width (RBC) [Ratio] 15.0 % Invalid Interpretation Code 11.5 - 15.5 % AH Remisol SS GFR/1.73 sq M.predicted among blacks MDRD (S/P/Bld) [Vol rate/Area] ml/min/1.73sqm Invalid Interpretation Code AH Chemistry S GFR/1.73 sq M.predicted among non-blacks MDRD (S/P/Bld) [Vol rate/Area] ml/min/1.73sqm Invalid Interpretation Code Chemistry S Globulin 3.1 G/dL Invalid Interpretation Code 1.5 - 3.8 G/dL AH ADM SS Glucose [Mass/Vol] 104 mg/dL Invalid Interpretation Code 70 - 110 mg/dL AH ADM SS Hematocrit (Bld) [Volume fraction] 31.5 % Invalid Interpretation Code 34.0 - 46.0 % AH Remisol SS Hemoglobin (Bld) [Mass/Vol] 10.4 G/dL Invalid Interpretation Code 12.0 - 16.0 G/dL AH Remisol SS Lymphocytes (Bld) [#/Vol] 1.50 103/mcL Invalid Interpretation Code 0.90 - 4.32 10^3/mcL AH Remisol SS Lymphocytes/100 WBC (Bld) 20.9 % Invalid Interpretation Code 20.0 - 40.0 % AH Remisol SS Magnesium [Mass/Vol] 1.7 mg/dL Invalid Interpretation Code 1.6 - 2.4 mg/dL AH ADM SS MCH (RBC) [Entitic mass] 25.3 pg Invalid Interpretation Code 27.0 - 33.0 pg AH Remisol SS MCHC (RBC) [Mass/Vol] 33.1 G/dL Invalid Interpretation Code 32.0 - 36.0 G/dL AH Remisol SS MCV (RBC) [Entitic vol] 76.4 fL Invalid Interpretation Code 80.0 - 99.0 fL AH Remisol SS Monocytes (Bld) [#/Vol] 0.60 103/mcL Invalid Interpretation Code 0.09 - 1.40 10^3/mcL AH Remisol SS Monocytes/100 WBC (Bld) 8.6 % Invalid Interpretation Code 2.0 - 13.0 % AH Remisol SS Neutrophils (Bld) [#/Vol] 4.80 103/mcL Invalid Interpretation Code 2.25 - 8.10 10^3/mcL AH Remisol SS Neutrophils/100 WBC (Bld) 69.1 % Invalid Interpretation Code 50.0 - 75.0 % AH Remisol SS Phosphate [Mass/Vol] 3.6 mg/dL Invalid Interpretation Code 2.4 - 5.1 mg/dL AH ADM SS Platelet mean volume (Bld) [Entitic vol] 6.4 fL Invalid Interpretation Code 6.6 - 10.5 fL AH Remisol SS Platelets (Bld) [#/Vol] 388 103/mcL Invalid Interpretation Code 150 - 450 10^3/mcL AH Remisol SS Potassium [Moles/Vol] 3.4 mmol/L Invalid Interpretation Code 3.5 - 5.0 mEq/L AH ADM SS Protein [Mass/Vol] 6.5 G/dL Invalid Interpretation Code 5.7 - 8.2 G/dL AH ADM SS RBC (Bld) [#/Vol] 4.12 106/mcL Invalid Interpretation Code 4.10 - 5.30 10^6/mcL AH Remisol SS Sodium [Moles/Vol] 140 mmol/L Invalid Interpretation Code 136 - 145 mEq/L AH ADM SS Urea nitrogen [Mass/Vol] 9.0 mg/dL Invalid Interpretation Code 8.0 - 22.0 mg/dL AH ADM SS Urea nitrogen/Creatinine [Mass ratio] 12.9 ratio Invalid Interpretation Code 10.0 - 22.0 ratio AH ADM SS WBC (Bld) [#/Vol] 7.00 103/mcL Invalid Interpretation Code 4.50 - 10.80 10^3/mcL AH Remisol SS LABORATORYOrdered By: SYSTEM SYSTEM on 09-08-2021 Albumin [Mass/Vol] 3.3 G/dL Invalid Interpretation Code 3.2 - 4.8 G/dL AH ADM SS Albumin/Globulin [Mass ratio] 0.8 {ratio} Invalid Interpretation Code 0.9 - 1.6 ratio AH ADM SS ALP [Catalytic activity/Vol] 67 U/L Invalid Interpretation Code 38 - 126 U/L AH ADM SS ALT [Catalytic activity/Vol] 19 U/L Invalid Interpretation Code 10 - 49 U/L AH ADM SS AST [Catalytic activity/Vol] 15 U/L Invalid Interpretation Code 8 - 34 U/L AH ADM SS Base excess Calc (BldMV) [Moles/Vol] 7.0 mEq/L Invalid Interpretation Code 4.0 - 15.0 mEq/L AH ADM SS Basophils (Bld) [#/Vol] 0.00 103/mcL Invalid Interpretation Code 0.00 - 0.27 10^3/mcL AH Remisol SS Basophils/100 WBC (Bld) 0.5 % Invalid Interpretation Code 0.0 - 2.5 % AH Remisol SS Bilirubin [Mass/Vol] 0.5 mg/dL Invalid Interpretation Code 0.2 - 1.2 mg/dL AH ADM SS Calcium [Mass/Vol] 9.0 mg/dL Invalid Interpretation Code 8.4 - 10.1 mg/dL AH ADM SS Chloride [Moles/Vol] 107 mmol/L Invalid Interpretation Code 98 - 110 mEq/L AH ADM SS CO2 [Moles/Vol] 25 mmol/L Invalid Interpretation Code 22 - 32 mEq/L AH ADM SS Creatinine [Mass/Vol] 0.82 mg/dL Invalid Interpretation Code 0.50 - 1.20 mg/dL AH ADM SS Eosinophils (Bld) [#/Vol] 0.10 103/mcL Invalid Interpretation Code 0.00 - 0.65 10^3/mcL AH Remisol SS Eosinophils/100 WBC (Bld) 0.6 % Invalid Interpretation Code 0.0 - 6.0 % AH Remisol SS Erythrocyte distribution width (RBC) [Ratio] 15.5 % Invalid Interpretation Code 11.5 - 15.5 % AH Remisol SS GFR/1.73 sq M.predicted among blacks MDRD (S/P/Bld) [Vol rate/Area] ml/min/1.73sqm Invalid Interpretation Code AH ADM SS GFR/1.73 sq M.predicted among non-blacks MDRD (S/P/Bld) [Vol rate/Area] ml/min/1.73sqm Invalid Interpretation Code AH ADM SS Globulin (S) [Mass/Vol] 4.0 G/dL Invalid Interpretation Code 1.5 - 3.8 G/dL AH ADM SS Glucose [Mass/Vol] 110 mg/dL Invalid Interpretation Code 70 - 110 mg/dL AH ADM SS Hematocrit (Bld) [Volume fraction] 33.9 % Invalid Interpretation Code 34.0 - 46.0 % AH Remisol SS Hemoglobin (Bld) [Mass/Vol] 10.6 G/dL Invalid Interpretation Code 12.0 - 16.0 G/dL AH Remisol SS Lymphocytes (Bld) [#/Vol] 1.40 103/mcL Invalid Interpretation Code 0.90 - 4.32 10^3/mcL AH Remisol SS Lymphocytes/100 WBC (Bld) 17.2 % Invalid Interpretation Code 20.0 - 40.0 % AH Remisol SS Magnesium [Mass/Vol] 2.0 mg/dL Invalid Interpretation Code 1.6 - 2.4 mg/dL AH ADM SS MCH (RBC) [Entitic mass] 24.5 pg Invalid Interpretation Code 27.0 - 33.0 pg AH Remisol SS MCHC (RBC) [Mass/Vol] 31.4 G/dL Invalid Interpretation Code 32.0 - 36.0 G/dL AH Remisol SS MCV (RBC) [Entitic vol] 78.0 fL Invalid Interpretation Code 80.0 - 99.0 fL AH Remisol SS Monocytes (Bld) [#/Vol] 0.70 103/mcL Invalid Interpretation Code 0.09 - 1.40 10^3/mcL AH Remisol SS Monocytes/100 WBC (Bld) 8.2 % Invalid Interpretation Code 2.0 - 13.0 % AH Remisol SS Neutrophils (Bld) [#/Vol] 6.00 103/mcL Invalid Interpretation Code 2.25 - 8.10 10^3/mcL AH Remisol SS Neutrophils/100 WBC (Bld) 73.5 % Invalid Interpretation Code 50.0 - 75.0 % AH Remisol SS Phosphate [Mass/Vol] 3.4 mg/dL Invalid Interpretation Code 2.5 - 4.5 mg/dL AH ADM SS Platelet mean volume (Bld) [Entitic vol] 6.1 fL Invalid Interpretation Code 6.6 - 10.5 fL AH Remisol SS Platelets (Bld) [#/Vol] 414 103/mcL Invalid Interpretation Code 150 - 450 10^3/mcL AH Remisol SS Potassium [Moles/Vol] 3.5 mmol/L Invalid Interpretation Code 3.5 - 5.0 mEq/L AH ADM SS Protein [Mass/Vol] 7.3 G/dL Invalid Interpretation Code 6.0 - 8.5 G/dL AH ADM SS RBC (Bld) [#/Vol] 4.35 106/mcL Invalid Interpretation Code 4.10 - 5.30 10^6/mcL AH Remisol SS Sodium [Moles/Vol] 139 mmol/L Invalid Interpretation Code 136 - 145 mEq/L AH ADM SS Urea nitrogen [Mass/Vol] 6.0 mg/dL Invalid Interpretation Code 8.0 - 22.0 mg/dL AH ADM SS Urea nitrogen/Creatinine [Mass ratio] 7.3 ratio Invalid Interpretation Code 10.0 - 22.0 ratio AH ADM SS WBC (Bld) [#/Vol] 8.20 103/mcL Invalid Interpretation Code 4.50 - 10.80 10^3/mcL AH Remisol SS LABORATORYOrdered By: SYSTEM SYSTEM on 09-03-2021 Albumin BCP dye [Mass/Vol] 2.9 G/dL Invalid Interpretation Code 3.2 - 4.8 G/dL AH ADM SS Albumin/Globulin [Mass ratio] 1.1 {ratio} Invalid Interpretation Code 0.9 - 1.6 ratio AH ADM SS ALP [Catalytic activity/Vol] 61 U/L Invalid Interpretation Code 38 - 126 U/L AH ADM SS ALT No additional P-5'-P [Catalytic activity/Vol] 9 U/L Invalid Interpretation Code 10 - 49 U/L AH ADM SS AST [Catalytic activity/Vol] U/L 1 Invalid Interpretation Code 8 - 34 U/L AH ADM SS Basophils (Bld) [#/Vol] 0.00 103/mcL Invalid Interpretation Code 0.00 - 0.27 10^3/mcL AH Remisol SS Basophils/100 WBC (Bld) 0.5 % Invalid Interpretation Code 0.0 - 2.5 % AH Remisol SS Bilirubin [Mass/Vol] 0.60 mg/dL Invalid Interpretation Code 0.20 - 1.20 mg/dL AH ADM SS Calcium [Mass/Vol] 8.9 mg/dL Invalid Interpretation Code 8.7 - 10.4 mg/dL AH ADM SS Chloride [Moles/Vol] 107 mmol/L Invalid Interpretation Code 98 - 110 mEq/L AH ADM SS CO2 [Moles/Vol] 27 mmol/L Invalid Interpretation Code 22 - 32 mEq/L AH ADM SS Creatinine [Mass/Vol] 0.59 mg/dL Invalid Interpretation Code 0.50 - 1.20 mg/dL AH ADM SS Electrolyte Balance 6.0 mEq/L Invalid Interpretation Code 4.0 - 15.0 mEq/L AH ADM SS Eosinophils (Bld) [#/Vol] 0.10 103/mcL Invalid Interpretation Code 0.00 - 0.65 10^3/mcL AH Remisol SS Eosinophils/100 WBC (Bld) 1.3 % Invalid Interpretation Code 0.0 - 6.0 % AH Remisol SS Erythrocyte distribution width (RBC) [Ratio] 15.1 % Invalid Interpretation Code 11.5 - 15.5 % AH Remisol SS GFR/1.73 sq M.predicted among blacks MDRD (S/P/Bld) [Vol rate/Area] ml/min/1.73sqm Invalid Interpretation Code Chemistry S GFR/1.73 sq M.predicted among non-blacks MDRD (S/P/Bld) [Vol rate/Area] ml/min/1.73sqm Invalid Interpretation Code Chemistry S Globulin 2.7 G/dL Invalid Interpretation Code 1.5 - 3.8 G/dL ADM SS Glucose [Mass/Vol] 95 mg/dL Invalid Interpretation Code 70 - 110 mg/dL AH ADM SS Hematocrit (Bld) [Volume fraction] 29.3 % Invalid Interpretation Code 34.0 - 46.0 % AH Remisol SS Hemoglobin (Bld) [Mass/Vol] 9.7 G/dL Invalid Interpretation Code 12.0 - 16.0 G/dL AH Remisol SS Lymphocytes (Bld) [#/Vol] 1.60 103/mcL Invalid Interpretation Code 0.90 - 4.32 10^3/mcL AH Remisol SS Lymphocytes/100 WBC (Bld) 22.6 % Invalid Interpretation Code 20.0 - 40.0 % AH Remisol SS Magnesium [Mass/Vol] 1.6 mg/dL Invalid Interpretation Code 1.6 - 2.4 mg/dL AH ADM SS MCH (RBC) [Entitic mass] 25.7 pg Invalid Interpretation Code 27.0 - 33.0 pg AH Remisol SS MCHC (RBC) [Mass/Vol] 33.0 G/dL Invalid Interpretation Code 32.0 - 36.0 G/dL AH Remisol SS MCV (RBC) [Entitic vol] 77.8 fL Invalid Interpretation Code 80.0 - 99.0 fL AH Remisol SS Monocytes (Bld) [#/Vol] 0.60 103/mcL Invalid Interpretation Code 0.09 - 1.40 10^3/mcL AH Remisol SS Monocytes/100 WBC (Bld) 8.2 % Invalid Interpretation Code 2.0 - 13.0 % AH Remisol SS Neutrophils (Bld) [#/Vol] 4.70 103/mcL Invalid Interpretation Code 2.25 - 8.10 10^3/mcL AH Remisol SS Neutrophils/100 WBC (Bld) 67.4 % Invalid Interpretation Code 50.0 - 75.0 % AH Remisol SS Phosphate [Mass/Vol] 4.4 mg/dL Invalid Interpretation Code 2.4 - 5.1 mg/dL AH ADM SS Platelet mean volume (Bld) [Entitic vol] 6.5 fL Invalid Interpretation Code 6.6 - 10.5 fL AH Remisol SS Platelets (Bld) [#/Vol] 323 103/mcL Invalid Interpretation Code 150 - 450 10^3/mcL AH Remisol SS Potassium [Moles/Vol] 3.8 mmol/L Invalid Interpretation Code 3.5 - 5.0 mEq/L AH ADM SS Protein [Mass/Vol] 5.6 G/dL Invalid Interpretation Code 5.7 - 8.2 G/dL AH ADM SS RBC (Bld) [#/Vol] 3.77 106/mcL Invalid Interpretation Code 4.10 - 5.30 10^6/mcL AH Remisol SS Sodium [Moles/Vol] 140 mmol/L Invalid Interpretation Code 136 - 145 mEq/L AH ADM SS Urea nitrogen [Mass/Vol] mg/dL Invalid Interpretation Code 8.0 - 22.0 mg/dL AH ADM SS Urea nitrogen/Creatinine [Mass ratio] ratio Invalid Interpretation Code 10.0 - 22.0 ratio AH ADM SS WBC (Bld) [#/Vol] 7.00 103/mcL Invalid Interpretation Code 4.50 - 10.80 10^3/mcL AH Remisol SS LABORATORYOrdered By: SYSTEM SYSTEM on 09-02-2021 Albumin BCP dye [Mass/Vol] 3.0 G/dL Invalid Interpretation Code 3.2 - 4.8 G/dL AH ADM SS Albumin/Globulin [Mass ratio] 1.0 {ratio} Invalid Interpretation Code 0.9 - 1.6 ratio AH ADM SS ALP [Catalytic activity/Vol] 69 U/L Invalid Interpretation Code 38 - 126 U/L AH ADM SS ALT No additional P-5'-P [Catalytic activity/Vol] 12 U/L Invalid Interpretation Code 10 - 49 U/L AH ADM SS AST [Catalytic activity/Vol] 10 U/L Invalid Interpretation Code 8 - 34 U/L AH ADM SS Basophils (Bld) [#/Vol] 0.00 103/mcL Invalid Interpretation Code 0.00 - 0.27 10^3/mcL AH Remisol SS Basophils/100 WBC (Bld) 0.2 % Invalid Interpretation Code 0.0 - 2.5 % Remisol SS Bilirubin [Mass/Vol] 0.90 mg/dL Invalid Interpretation Code 0.20 - 1.20 mg/dL AH ADM SS Calcium [Mass/Vol] 9.0 mg/dL Invalid Interpretation Code 8.7 - 10.4 mg/dL AH ADM SS Chloride [Moles/Vol] 106 mmol/L Invalid Interpretation Code 98 - 110 mEq/L ADM SS CO2 [Moles/Vol] 24 mmol/L Invalid Interpretation Code 22 - 32 mEq/L AH ADM SS Creatinine [Mass/Vol] 0.66 mg/dL Invalid Interpretation Code 0.50 - 1.20 mg/dL AH ADM SS Electrolyte Balance 10.0 mEq/L Invalid Interpretation Code 4.0 - 15.0 mEq/L AH ADM SS Eosinophils (Bld) [#/Vol] 0.00 103/mcL Invalid Interpretation Code 0.00 - 0.65 10^3/mcL AH Remisol SS Eosinophils/100 WBC (Bld) 0.4 % Invalid Interpretation Code 0.0 - 6.0 % AH Remisol SS Erythrocyte distribution width (RBC) [Ratio] 15.3 % Invalid Interpretation Code 11.5 - 15.5 % AH Remisol SS GFR/1.73 sq M.predicted among blacks MDRD (S/P/Bld) [Vol rate/Area] ml/min/1.73sqm Invalid Interpretation Code AH Chemistry S GFR/1.73 sq M.predicted among non-blacks MDRD (S/P/Bld) [Vol rate/Area] ml/min/1.73sqm Invalid Interpretation Code Chemistry S Globulin 2.9 G/dL Invalid Interpretation Code 1.5 - 3.8 G/dL AH ADM SS Glucose [Mass/Vol] 98 mg/dL Invalid Interpretation Code 70 - 110 mg/dL AH ADM SS Hematocrit (Bld) [Volume fraction] 30.7 % Invalid Interpretation Code 34.0 - 46.0 % AH Remisol SS Hemoglobin (Bld) [Mass/Vol] 9.9 G/dL Invalid Interpretation Code 12.0 - 16.0 G/dL AH Remisol SS Lymphocytes (Bld) [#/Vol] 1.50 103/mcL Invalid Interpretation Code 0.90 - 4.32 10^3/mcL AH Remisol SS Lymphocytes/100 WBC (Bld) 19.3 % Invalid Interpretation Code 20.0 - 40.0 % AH Remisol SS Magnesium [Mass/Vol] 1.6 mg/dL Invalid Interpretation Code 1.6 - 2.4 mg/dL AH ADM SS MCH (RBC) [Entitic mass] 25.6 pg Invalid Interpretation Code 27.0 - 33.0 pg AH Remisol SS MCHC (RBC) [Mass/Vol] 32.4 G/dL Invalid Interpretation Code 32.0 - 36.0 G/dL AH Remisol SS MCV (RBC) [Entitic vol] 79.1 fL Invalid Interpretation Code 80.0 - 99.0 fL AH Remisol SS Monocytes (Bld) [#/Vol] 0.70 103/mcL Invalid Interpretation Code 0.09 - 1.40 10^3/mcL AH Remisol SS Monocytes/100 WBC (Bld) 9.3 % Invalid Interpretation Code 2.0 - 13.0 % AH Remisol SS Neutrophils (Bld) [#/Vol] 5.30 103/mcL Invalid Interpretation Code 2.25 - 8.10 10^3/mcL AH Remisol SS Neutrophils/100 WBC (Bld) 70.8 % Invalid Interpretation Code 50.0 - 75.0 % AH Remisol SS Phosphate [Mass/Vol] 4.2 mg/dL Invalid Interpretation Code 2.4 - 5.1 mg/dL AH ADM SS Platelet mean volume (Bld) [Entitic vol] 6.8 fL Invalid Interpretation Code 6.6 - 10.5 fL AH Remisol SS Platelets (Bld) [#/Vol] 309 103/mcL Invalid Interpretation Code 150 - 450 10^3/mcL AH Remisol SS Potassium [Moles/Vol] 3.7 mmol/L Invalid Interpretation Code 3.5 - 5.0 mEq/L AH ADM SS Comment on above: Result Comment: Spec imen slightly hemolyzed. Protein [Mass/Vol] 5.9 G/dL Invalid Interpretation Code 5.7 - 8.2 G/dL AH ADM SS RBC (Bld) [#/Vol] 3.88 106/mcL Invalid Interpretation Code 4.10 - 5.30 10^6/mcL AH Remisol SS Sodium [Moles/Vol] 140 mmol/L Invalid Interpretation Code 136 - 145 mEq/L AH ADM SS Urea nitrogen [Mass/Vol] mg/dL Invalid Interpretation Code 8.0 - 22.0 mg/dL AH ADM SS Urea nitrogen/Creatinine [Mass ratio] ratio Invalid Interpretation Code 10.0 - 22.0 ratio AH ADM SS WBC (Bld) [#/Vol] 7.50 103/mcL Invalid Interpretation Code 4.50 - 10.80 10^3/mcL AH Remisol SS LABORATORYOrdered By: SYSTEM SYSTEM on 09-01-2021 Albumin BCP dye [Mass/Vol] 3.2 G/dL Invalid Interpretation Code 3.2 - 4.8 G/dL AH ADM SS Albumin/Globulin [Mass ratio] 1.1 {ratio} Invalid Interpretation Code 0.9 - 1.6 ratio AH ADM SS ALP [Catalytic activity/Vol] 72 U/L Invalid Interpretation Code 38 - 126 U/L AH ADM SS ALT No additional P-5'-P [Catalytic activity/Vol] 15 U/L Invalid Interpretation Code 10 - 49 U/L AH ADM SS AST [Catalytic activity/Vol] U/L 1 Invalid Interpretation Code 8 - 34 U/L AH ADM SS Basophils (Bld) [#/Vol] 0.00 103/mcL Invalid Interpretation Code 0.00 - 0.27 10^3/mcL AH Remisol SS Basophils/100 WBC (Bld) 0.1 % Invalid Interpretation Code 0.0 - 2.5 % AH Remisol SS Bilirubin [Mass/Vol] 0.90 mg/dL Invalid Interpretation Code 0.20 - 1.20 mg/dL AH ADM SS Calcium [Mass/Vol] 9.2 mg/dL Invalid Interpretation Code 8.7 - 10.4 mg/dL AH ADM SS Chloride [Moles/Vol] 108 mmol/L Invalid Interpretation Code 98 - 110 mEq/L AH ADM SS CO2 [Moles/Vol] 27 mmol/L Invalid Interpretation Code 22 - 32 mEq/L AH ADM SS Creatinine [Mass/Vol] 0.59 mg/dL Invalid Interpretation Code 0.50 - 1.20 mg/dL AH ADM SS Electrolyte Balance 4.0 mEq/L Invalid Interpretation Code 4.0 - 15.0 mEq/L AH ADM SS Eosinophils (Bld) [#/Vol] 0.00 103/mcL Invalid Interpretation Code 0.00 - 0.65 10^3/mcL AH Remisol SS Eosinophils/100 WBC (Bld) 0.0 % Invalid Interpretation Code 0.0 - 6.0 % AH Remisol SS Erythrocyte distribution width (RBC) [Ratio] 15.3 % Invalid Interpretation Code 11.5 - 15.5 % AH Remisol SS GFR/1.73 sq M.predicted among blacks MDRD (S/P/Bld) [Vol rate/Area] ml/min/1.73sqm Invalid Interpretation Code AH Chemistry S GFR/1.73 sq M.predicted among non-blacks MDRD (S/P/Bld) [Vol rate/Area] ml/min/1.73sqm Invalid Interpretation Code Chemistry S Globulin 2.9 G/dL Invalid Interpretation Code 1.5 - 3.8 G/dL AH ADM SS Glucose [Mass/Vol] 113 mg/dL Invalid Interpretation Code 70 - 110 mg/dL AH ADM SS Hematocrit (Bld) [Volume fraction] 33.3 % Invalid Interpretation Code 34.0 - 46.0 % AH Remisol SS Hemoglobin (Bld) [Mass/Vol] 10.5 G/dL Invalid Interpretation Code 12.0 - 16.0 G/dL AH Remisol SS Lymphocytes (Bld) [#/Vol] 1.10 103/mcL Invalid Interpretation Code 0.90 - 4.32 10^3/mcL AH Remisol SS Lymphocytes/100 WBC (Bld) 11.0 % Invalid Interpretation Code 20.0 - 40.0 % AH Remisol SS Magnesium [Mass/Vol] 1.7 mg/dL Invalid Interpretation Code 1.6 - 2.4 mg/dL AH ADM SS MCH (RBC) [Entitic mass] 25.0 pg Invalid Interpretation Code 27.0 - 33.0 pg AH Remisol SS MCHC (RBC) [Mass/Vol] 31.6 G/dL Invalid Interpretation Code 32.0 - 36.0 G/dL AH Remisol SS MCV (RBC) [Entitic vol] 79.1 fL Invalid Interpretation Code 80.0 - 99.0 fL AH Remisol SS Monocytes (Bld) [#/Vol] 0.90 103/mcL Invalid Interpretation Code 0.09 - 1.40 10^3/mcL AH Remisol SS Monocytes/100 WBC (Bld) 9.3 % Invalid Interpretation Code 2.0 - 13.0 % AH Remisol SS Neutrophils (Bld) [#/Vol] 8.00 103/mcL Invalid Interpretation Code 2.25 - 8.10 10^3/mcL AH Remisol SS Neutrophils/100 WBC (Bld) 79.6 % Invalid Interpretation Code 50.0 - 75.0 % AH Remisol SS Phosphate [Mass/Vol] 3.6 mg/dL Invalid Interpretation Code 2.4 - 5.1 mg/dL AH ADM SS Platelet mean volume (Bld) [Entitic vol] 6.4 fL Invalid Interpretation Code 6.6 - 10.5 fL AH Remisol SS Platelets (Bld) [#/Vol] 315 103/mcL Invalid Interpretation Code 150 - 450 10^3/mcL AH Remisol SS Potassium [Moles/Vol] 3.9 mmol/L Invalid Interpretation Code 3.5 - 5.0 mEq/L AH ADM SS Protein [Mass/Vol] 6.1 G/dL Invalid Interpretation Code 5.7 - 8.2 G/dL AH ADM SS RBC (Bld) [#/Vol] 4.21 106/mcL Invalid Interpretation Code 4.10 - 5.30 10^6/mcL AH Remisol SS Sodium [Moles/Vol] 139 mmol/L Invalid Interpretation Code 136 - 145 mEq/L AH ADM SS Urea nitrogen [Mass/Vol] mg/dL Invalid Interpretation Code 8.0 - 22.0 mg/dL AH ADM SS Urea nitrogen/Creatinine [Mass ratio] ratio Invalid Interpretation Code 10.0 - 22.0 ratio AH ADM SS WBC (Bld) [#/Vol] 10.00 103/mcL Invalid Interpretation Code 4.50 - 10.80 10^3/mcL AH Remisol SS LABORATORYOrdered By: Danielle Beck on 08-30-2021 ABO and Rh group Nom (Bld) Blood group A Rh(D) positive Invalid Interpretation Code BB Auto SS Blood group antibody screen Ql NEG (08/30/21 8:43 PM) Invalid Interpretation Code BB Auto SS LABORATORYOrdered By: SYSTEM SYSTEM on 08-28-2021 Albumin BCP dye [Mass/Vol] 2.9 G/dL Invalid Interpretation Code 3.2 - 4.8 G/dL AH ADM SS Albumin/Globulin [Mass ratio] 1.2 {ratio} Invalid Interpretation Code 0.9 - 1.6 ratio AH ADM SS ALP [Catalytic activity/Vol] 74 U/L Invalid Interpretation Code 38 - 126 U/L ADM SS ALT No additional P-5'-P [Catalytic activity/Vol] 13 U/L Invalid Interpretation Code 10 - 49 U/L AH ADM SS AST [Catalytic activity/Vol] U/L 1 Invalid Interpretation Code 8 - 34 U/L ADM SS Basophils (Bld) [#/Vol] 0.00 103/mcL Invalid Interpretation Code 0.00 - 0.27 10^3/mcL AH Remisol SS Basophils/100 WBC (Bld) 0.5 % Invalid Interpretation Code 0.0 - 2.5 % AH Remisol SS Bilirubin [Mass/Vol] 0.20 mg/dL Invalid Interpretation Code 0.20 - 1.20 mg/dL AH ADM SS Calcium [Mass/Vol] 8.4 mg/dL Invalid Interpretation Code 8.7 - 10.4 mg/dL AH ADM SS Chloride [Moles/Vol] 110 mmol/L Invalid Interpretation Code 98 - 110 mEq/L ADM SS CO2 [Moles/Vol] 30 mmol/L Invalid Interpretation Code 22 - 32 mEq/L AH ADM SS Creatinine [Mass/Vol] 0.59 mg/dL Invalid Interpretation Code 0.50 - 1.20 mg/dL AH ADM SS Electrolyte Balance 4.0 mEq/L Invalid Interpretation Code 4.0 - 15.0 mEq/L AH ADM SS Eosinophils (Bld) [#/Vol] 0.10 103/mcL Invalid Interpretation Code 0.00 - 0.65 10^3/mcL AH Remisol SS Eosinophils/100 WBC (Bld) 1.0 % Invalid Interpretation Code 0.0 - 6.0 % AH Remisol SS Erythrocyte distribution width (RBC) [Ratio] 15.1 % Invalid Interpretation Code 11.5 - 15.5 % AH Remisol SS GFR/1.73 sq M.predicted among blacks MDRD (S/P/Bld) [Vol rate/Area] ml/min/1.73sqm Invalid Interpretation Code AH Chemistry S GFR/1.73 sq M.predicted among non-blacks MDRD (S/P/Bld) [Vol rate/Area] ml/min/1.73sqm Invalid Interpretation Code Chemistry S Globulin 2.5 G/dL Invalid Interpretation Code 1.5 - 3.8 G/dL AH ADM SS Glucose [Mass/Vol] 111 mg/dL Invalid Interpretation Code 70 - 110 mg/dL AH ADM SS Hematocrit (Bld) [Volume fraction] 31.3 % Invalid Interpretation Code 34.0 - 46.0 % AH Remisol SS Hemoglobin (Bld) [Mass/Vol] 10.2 G/dL Invalid Interpretation Code 12.0 - 16.0 G/dL AH Remisol SS Lymphocytes (Bld) [#/Vol] 2.10 103/mcL Invalid Interpretation Code 0.90 - 4.32 10^3/mcL AH Remisol SS Lymphocytes/100 WBC (Bld) 36.9 % Invalid Interpretation Code 20.0 - 40.0 % Remisol SS Magnesium [Mass/Vol] 1.6 mg/dL Invalid Interpretation Code 1.6 - 2.4 mg/dL AH ADM SS MCH (RBC) [Entitic mass] 25.7 pg Invalid Interpretation Code 27.0 - 33.0 pg AH Remisol SS MCHC (RBC) [Mass/Vol] 32.5 G/dL Invalid Interpretation Code 32.0 - 36.0 G/dL AH Remisol SS MCV (RBC) [Entitic vol] 79.1 fL Invalid Interpretation Code 80.0 - 99.0 fL AH Remisol SS Monocytes (Bld) [#/Vol] 0.50 103/mcL Invalid Interpretation Code 0.09 - 1.40 10^3/mcL AH Remisol SS Monocytes/100 WBC (Bld) 7.9 % Invalid Interpretation Code 2.0 - 13.0 % AH Remisol SS Neutrophils (Bld) [#/Vol] 3.10 103/mcL Invalid Interpretation Code 2.25 - 8.10 10^3/mcL AH Remisol SS Neutrophils/100 WBC (Bld) 53.7 % Invalid Interpretation Code 50.0 - 75.0 % AH Remisol SS Phosphate [Mass/Vol] 3.5 mg/dL Invalid Interpretation Code 2.4 - 5.1 mg/dL AH ADM SS Platelet mean volume (Bld) [Entitic vol] 6.6 fL Invalid Interpretation Code 6.6 - 10.5 fL AH Remisol SS Platelets (Bld) [#/Vol] 286 103/mcL Invalid Interpretation Code 150 - 450 10^3/mcL AH Remisol SS Potassium [Moles/Vol] 4.1 mmol/L Invalid Interpretation Code 3.5 - 5.0 mEq/L AH ADM SS Protein [Mass/Vol] 5.4 G/dL Invalid Interpretation Code 5.7 - 8.2 G/dL AH ADM SS RBC (Bld) [#/Vol] 3.96 106/mcL Invalid Interpretation Code 4.10 - 5.30 10^6/mcL AH Remisol SS Sodium [Moles/Vol] 144 mmol/L Invalid Interpretation Code 136 - 145 mEq/L AH ADM SS Urea nitrogen [Mass/Vol] 10.0 mg/dL Invalid Interpretation Code 8.0 - 22.0 mg/dL AH ADM SS Urea nitrogen/Creatinine [Mass ratio] 16.9 ratio Invalid Interpretation Code 10.0 - 22.0 ratio AH ADM SS WBC (Bld) [#/Vol] 5.80 103/mcL Invalid Interpretation Code 4.50 - 10.80 10^3/mcL AH Remisol SS LABORATORYOrdered By: SYSTEM SYSTEM on 08-27-2021 Albumin BCP dye [Mass/Vol] 3.2 G/dL Invalid Interpretation Code 3.2 - 4.8 G/dL AH ADM SS Albumin/Globulin [Mass ratio] 1.0 {ratio} Invalid Interpretation Code 0.9 - 1.6 ratio AH ADM SS ALP [Catalytic activity/Vol] 89 U/L Invalid Interpretation Code 38 - 126 U/L AH ADM SS ALT No additional P-5'-P [Catalytic activity/Vol] 16 U/L Invalid Interpretation Code 10 - 49 U/L AH ADM SS AST [Catalytic activity/Vol] U/L 1 Invalid Interpretation Code 8 - 34 U/L AH ADM SS Basophils (Bld) [#/Vol] 0.00 103/mcL Invalid Interpretation Code 0.00 - 0.27 10^3/mcL AH Remisol SS Basophils/100 WBC (Bld) 0.1 % Invalid Interpretation Code 0.0 - 2.5 % AH Remisol SS Bilirubin [Mass/Vol] 0.60 mg/dL Invalid Interpretation Code 0.20 - 1.20 mg/dL AH ADM SS Calcium [Mass/Vol] 9.4 mg/dL Invalid Interpretation Code 8.7 - 10.4 mg/dL AH ADM SS Chloride [Moles/Vol] 107 mmol/L Invalid Interpretation Code 98 - 110 mEq/L AH ADM SS CO2 [Moles/Vol] 27 mmol/L Invalid Interpretation Code 22 - 32 mEq/L AH ADM SS Creatinine [Mass/Vol] 0.50 mg/dL Invalid Interpretation Code 0.50 - 1.20 mg/dL AH ADM SS Electrolyte Balance 7.0 mEq/L Invalid Interpretation Code 4.0 - 15.0 mEq/L AH ADM SS Eosinophils (Bld) [#/Vol] 0.00 103/mcL Invalid Interpretation Code 0.00 - 0.65 10^3/mcL AH Remisol SS Eosinophils/100 WBC (Bld) 0.0 % Invalid Interpretation Code 0.0 - 6.0 % AH Remisol SS Erythrocyte distribution width (RBC) [Ratio] 15.1 % Invalid Interpretation Code 11.5 - 15.5 % AH Remisol SS GFR/1.73 sq M.predicted among blacks MDRD (S/P/Bld) [Vol rate/Area] ml/min/1.73sqm Invalid Interpretation Code AH Chemistry S GFR/1.73 sq M.predicted among non-blacks MDRD (S/P/Bld) [Vol rate/Area] ml/min/1.73sqm Invalid Interpretation Code Chemistry S Globulin 3.1 G/dL Invalid Interpretation Code 1.5 - 3.8 G/dL ADM SS Glucose [Mass/Vol] 105 mg/dL Invalid Interpretation Code 70 - 110 mg/dL AH ADM SS Hematocrit (Bld) [Volume fraction] 35.7 % Invalid Interpretation Code 34.0 - 46.0 % AH Remisol SS Hemoglobin (Bld) [Mass/Vol] 11.5 G/dL Invalid Interpretation Code 12.0 - 16.0 G/dL AH Remisol SS Lymphocytes (Bld) [#/Vol] 1.20 103/mcL Invalid Interpretation Code 0.90 - 4.32 10^3/mcL AH Remisol SS Lymphocytes/100 WBC (Bld) 12.1 % Invalid Interpretation Code 20.0 - 40.0 % AH Remisol SS Magnesium [Mass/Vol] 1.8 mg/dL Invalid Interpretation Code 1.6 - 2.4 mg/dL AH ADM SS MCH (RBC) [Entitic mass] 25.6 pg Invalid Interpretation Code 27.0 - 33.0 pg AH Remisol SS MCHC (RBC) [Mass/Vol] 32.3 G/dL Invalid Interpretation Code 32.0 - 36.0 G/dL AH Remisol SS MCV (RBC) [Entitic vol] 79.1 fL Invalid Interpretation Code 80.0 - 99.0 fL AH Remisol SS Monocytes (Bld) [#/Vol] 0.40 103/mcL Invalid Interpretation Code 0.09 - 1.40 10^3/mcL AH Remisol SS Monocytes/100 WBC (Bld) 4.5 % Invalid Interpretation Code 2.0 - 13.0 % AH Remisol SS Neutrophils (Bld) [#/Vol] 8.20 103/mcL Invalid Interpretation Code 2.25 - 8.10 10^3/mcL AH Remisol SS Neutrophils/100 WBC (Bld) 83.3 % Invalid Interpretation Code 50.0 - 75.0 % AH Remisol SS Phosphate [Mass/Vol] 3.9 mg/dL Invalid Interpretation Code 2.4 - 5.1 mg/dL AH ADM SS Platelet mean volume (Bld) [Entitic vol] 6.5 fL Invalid Interpretation Code 6.6 - 10.5 fL AH Remisol SS Platelets (Bld) [#/Vol] 344 103/mcL Invalid Interpretation Code 150 - 450 10^3/mcL AH Remisol SS Potassium [Moles/Vol] 4.4 mmol/L Invalid Interpretation Code 3.5 - 5.0 mEq/L AH ADM SS Protein [Mass/Vol] 6.3 G/dL Invalid Interpretation Code 5.7 - 8.2 G/dL AH ADM SS RBC (Bld) [#/Vol] 4.51 106/mcL Invalid Interpretation Code 4.10 - 5.30 10^6/mcL AH Remisol SS Sodium [Moles/Vol] 141 mmol/L Invalid Interpretation Code 136 - 145 mEq/L AH ADM SS Urea nitrogen [Mass/Vol] mg/dL Invalid Interpretation Code 8.0 - 22.0 mg/dL AH ADM SS Urea nitrogen/Creatinine [Mass ratio] ratio Invalid Interpretation Code 10.0 - 22.0 ratio AH ADM SS WBC (Bld) [#/Vol] 9.90 103/mcL Invalid Interpretation Code 4.50 - 10.80 10^3/mcL AH Remisol SS LABORATORYOrdered By: Mirta Leonardo on 08-26-2021 ABO and Rh group Nom (Bld) Blood group A Rh(D) positive Invalid Interpretation Code AH BB Auto SS Blood group antibody screen Ql NEG (08/26/21 9:40 AM) Invalid Interpretation Code AH BB Auto SS LABORATORYOrdered By: Haylie Park on 08-26-2021 Beta HCG ( test) Ql (U) Negative (08/26/21 9:36 AM) [facility] Work Phone: Basic Metabolic Panelon 06-12 Calcium [Mass/Vol] 8.7 mg/dL Normal 8.4-10.4 [facility] Comment on above: Performed By: #### C MP3, HEMDF #### [facility] [address], [place] Glucose [Mass/Vol] 83 mg/dL Normal 70-100 [facility] Comment on above: Performed By: #### C MP3, HEMDF #### [address] [address] [place], [place] Urea nitrogen [Mass/Vol] 4 mg/dL Low 9-20 [facility] Comment on above: Performed By: #### C MP3, HEMDF #### [facility] [address], [place] Anion gap [Moles/Vol] 6 mmol/L Normal 3-13 [facility] Comment on above: Performed By: #### C MP3, HEMDF #### [facility] [address], [place] CO2 [Moles/Vol] 26 mmol/L Normal 22-30 [facility] Comment on above: Performed By: #### C MP3, HEMDF #### [facility] [address], [place] Creatinine [Mass/Vol] 0.46 mg/dL Low 0.52-1.25 [facility] Comment on above: Performed By: #### C MP3, HEMDF #### [address] eGFR OTHER > 90.0 Normal >60 [facility] Comment on above: Result Comment: KDIG O guidelines provide the following GFR categories: Stage GFR(ml/min/1.73 m2) Terms G1 >=90 Normal or high G2 60-89 Mildly decreased* G3a 45-59 Mildly to moderately decreased G3b 30-44 Moderately to severely decreased G4 15-29 Severely decreased G5 <15 Kidney failure *Relative to young adult level. In the absence of evidence of kidney damage, neither GFR category G1 nor G2 fulfill the criteria for CKD. The CKD-EPI equation is validated in individuals 18 years of age and older. Currently the best equation for estimating glomerular filtration rate (GFR) from serum creatinine in children is the Bedside Pablo equation. It is less accurate in patients with extremes of muscle mass, restriction of dietary protein, ingestion of creatine, extra-renal metabolism of creatinine, or treatment with medications that affect renal tubular creatinine secretion. Performed By: #### C MP3, HEMDF #### [facility] [address] [place] [place], [place] GFR/1.73 sq M.predicted among blacks MDRD (S/P/Bld) [Vol rate/Area] mL/min/{1.73_m2} Normal >60 [facility] Comment on above: Performed By: #### C MP3, HEMDF #### [address] [place], [place] Potassium [Moles/Vol] 4.7 mmol/L Normal 3.5-5.1 [facility] Comment on above: Result Comment: Mode rately hemolysed, interpret with caution. Performed By: #### C MP3, HEMDF #### [facility] [address] [place], [place] Chloride [Moles/Vol] 106 mmol/L Normal 98-107 [facility] Comment on above: Performed By: #### C MP3, HEMDF #### [facility] [place] [address] [place], [place] Sodium [Moles/Vol] 139 mmol/L Normal 135-145 [employer] Comment on above: Performed By: #### C MP3, HEMDF #### [facility] [address] [place] [address] Basic Metabolic PanelOrdered By: Shelley Escobar on 06-22-2021 Anion gap [Moles/Vol] 6 mmol/L 3 - 13 mmol/L [employer] Work Phone: Calcium [Mass/Vol] 8.7 mg/dL 8.4 - 10. 4 mg/dL [facility] Work Phone: Chloride [Moles/Vol] 106 mmol/L 98 - 10 7 mmol/L [facility] Work Phone: CO2 [Moles/Vol] 26 mmol/L 22 - 30 mmol/L [employer] Work Phone: Creatinine [Mass/Vol] 0.46 mg/dL Low 0.52 - 1.25 mg/dL [facility] Work Phone: EGFR IF NonAfrican Uruguayan >90.0 >60 mL/min [facility] Work Phone: Comment on above: KDIGO guidelines pro vide the following GFR categories: Stage GFR(ml/min/1.73 m2) Terms G1 >=90 Normal or high G2 60-89 Mildly decreased* G3a 45-59 Mildly to moderately decreased G3b 30-44 Moderately to severely decreased G4 15-29 Severely decreased G5 <15 Kidney failure *Relative to young adult level. In the absence of evidence of kidney damage, neither GFR category G1 nor G2 fulfill the criteria for CKD. The CKD-EPI equation is validated in individuals 18 years of age and older. Currently the best equation for estimating glomerular filtration rate (GFR) from serum creatinine in children is the Bedside Pablo equation. It is less accurate in patients with extremes of muscle mass, restriction of dietary protein, ingestion of creatine, extra-renal metabolism of creatinine, or treatment with medications that affect renal tubular creatinine secretion. GFR/1.73 sq M.predicted among blacks MDRD (S/P/Bld) [Vol rate/Area] mL/min/{1.73_m2} >60 mL/min [facility] Work Phone: Glucose [Mass/Vol] 83 mg/dL 70 - 100 mg/dL [facility] Work Phone: [phone] Interpretation and review of laboratory results Abnormal [facility] Work Phone: [phone] Potassium [Moles/Vol] 4.7 mmol/L 3.5 - 5.1 mmol/L [facility] Work Phone: [phone] Comment on above: Moderately hemolysed , interpret with caution. Sodium [Moles/Vol] 139 mmol/L 135 - 145 mmol/L [facility] Work Phone: [phone] Urea nitrogen (BldV) [Mass/Vol] 4 mg/dL Low 9 - 20 mg/dL [facility] Work Phone: [phone] Complete Urinalysison 2020 Appearance (U) Turbid Abnormal Clear [facility] Comment on above: Result Comment: . Performed By: #### C MP3, HEMDF #### [address] [address] [place], [place] Bacteria Few Abnormal Negative [facility] Comment on above: Result Comment: . Performed By: #### C MP3, HEMDF #### [address] [address] [place], [place] Bilirubin,Urine Negative Normal Negative [facility] Comment on above: Result Comment: . Performed By: #### C MP3, HEMDF #### [address] [place], [place] Cast, Hyaline Negative Normal Negative [facility] Comment on above: Result Comment: . Performed By: #### C MP3, HEMDF #### [address] [place], [place] Color (U) Yellow Normal Lt. Yellow [facility] Comment on above: Result Comment: . Performed By: #### C MP3, HEMDF #### [address] [address] [place], [place] Glucose Ql (U) Normal Normal Normal (<70) [facility] Comment on above: Result Comment: . Performed By: #### C MP3, HEMDF #### [address] [place], [place] Ketone,Urine Negative Normal Negative [facility] Comment on above: Result Comment: . Performed By: #### C MP3, HEMDF #### [facility] [address], [place] Leukocytes,Urine 500 Delmy/uL Abnormal Negative [facility] Comment on above: Result Comment: . Performed By: #### C MP3, HEMDF #### [facility] [address], [place] Mucous Threads Few Normal Negative [facility] Comment on above: Result Comment: . Performed By: #### C MP3, HEMDF #### [address] [place], [place] Nitrites,Urine Negative Normal Negative [facility] Comment on above: Result Comment: . Performed By: #### C MP3, HEMDF #### [address] [place], [place] Occult Blood,Urine 0.1 mg/dL Abnormal Negative [facility] Comment on above: Result Comment: . Performed By: #### C MP3, HEMDF #### [address] [place], [place] pH,Urine 7.5 Normal 5.0-8.0 [facility] Comment on above: Result Comment: . Performed By: #### C MP3, HEMDF #### [address] [place], [place] RBC, Urine 0 - 2 Normal 0-2 [facility] Comment on above: Result Comment: . Performed By: #### C MP3, HEMDF #### [address] [place], [place] Specific [place],Urine < 1.005 Abnormal 1.005 - 1.030 [facility] Comment on above: Result Comment: . Performed By: #### C MP3, HEMDF #### [address] [place], [place] Squamous Epithelial 3 - 5 Normal 3-5 [facility] Comment on above: Result Comment: . Performed By: #### C MP3, HEMDF #### [facility] [address] [place] [address] Total Protein,Urine Negative Normal Negative [facility] Comment on above: Result Comment: . Performed By: #### C MP3, HEMDF #### [facility] [address] [place] [address] Urobilinogen,Urine Normal Normal Normal (0-1) [facility] Comment on above: Result Comment: . Performed By: #### C MP3, HEMDF #### [facility] [address] [place] [address] WBC LM.HPF (Urine sed) [#/Area] /[HPF] Abnormal 0-5 [facility] Comment on above: Result Comment: . Performed By: #### C MP3, HEMDF #### [facility] [address] [place] [address] White Blood Cell Clump Few Abnormal Negative [facility] Comment on above: Result Comment: . Performed By: #### C MP3, HEMDF #### [facility] [address] [place] [address] ED Provider Noteon 1 ED Provider Note [facility]Y [facility] EMERGENCY DEPARTMENT ENCOUNTER Pt Name: Leelee Zamora Birthdate 1995 Date of evaluation: 06/22/2021 Provider: Shelley Escobar MD CHIEF COMPLAINT Chief Complaint Patient presents with ? Shortness of Breath ? Wound Infection 4th degree vaginal tear from childbirth HISTORY OF PRESENT ILLNESS (Location/Symptom, Timing/Onset, Context/Setting, Quality, Duration, Modifying Factors, Severity) Note limiting factors. I wore a Face shield over a surgical mask over an N95 mask for the entirety of this encounter. Does this patient come from an ECF, SNF, Rehab, Mcfp or other Congregate setting: no (If yes to above patient needs a Covid-19 test) HPI Leelee Zamora is a 26 y.o. female who presents to the emergency department presenting with concern for episiotomy infection. Her episiotomy was done at the beginning of May 2021. She was recently admitted to [facility] for C. difficile infection. She states she was discharged with low blood counts and potassium counts. She was put on some antibiotics for pelvic inflammatory disease as well as C. difficile. She states that she has noticed with passing flatus that she feels that it is coming out of both rectum and vagina. She reports some vaginal bleeding, denies any fevers. She does states she has had difficulty urinating, feels like she can't completely empty her bladder. She reports diffuse abdominal pain, inability to eat due to intermittent nausea. She is not breast-feeding. Per chart review patient had on 05/05 complicated by 4th degree laceration with subsequent episiotomy repair on 05/16 and she was admitted for postoperative pain control and IV antibiotics for 24 hours. Hospital course normal, discharged home 05/17/21. Nursing Notes were reviewed. REVIEW OF SYSTEMS (2+ for level 4; 10+ for level 5) Review of Systems Constitutional: Negative for chills, diaphoresis, fatigue and fever. HENT: Negative for congestion, facial swelling and trouble swallowing. Eyes: Negative for photophobia, pain, redness and visual disturbance. Respiratory: Negative for cough and shortness of breath. Cardiovascular: Negative for chest pain, palpitations and leg swelling. Gastrointestinal: Positive for abdominal pain and nausea. Negative for blood in stool, constipation, diarrhea and vomiting. Genitourinary: Positive for difficulty urinating, pelvic pain, vaginal bleeding and vaginal discharge. Negative for dysuria, flank pain, frequency, hematuria and urgency. Musculoskeletal: Negative for arthralgias, back pain, joint swelling and neck pain. Skin: Negative for rash and wound. Neurological: Negative for dizziness, syncope, speech difficulty, weakness, light-headedness, numbness and headaches. Psychiatric/Behavioral: Negative for agitation and confusion. PAST MEDICAL HISTORY Past Medical History: Diagnosis Date ? Gestational diabetes SURGICAL HISTORY Past Surgical History: Procedure Laterality Date ? SECTION ? CYST INCISION AND DRAINAGE ? DILATION AND CURETTAGE OF UTERUS ? OTHER SURGICAL HISTORY 05/16/2021 RV fistula repair, perineorraphy ? WISDOM TOOTH EXTRACTION CURRENT MEDICATIONS Previous Medications IBUPROFEN (ADVIL;MOTRIN) 600 MG TABLET Take 1 tablet by mouth every 6 hours as needed for Pain POLYETHYLENE GLYCOL 3350 (MIRALAX PO) Take by mouth ALLERGIES Cranberry, Nuts [peanut-containing drug products], and Morphine FAMILY HISTORY History reviewed. No pertinent family history. SOCIAL HISTORY Social History Socioeconomic History ? Marital status: Spouse name: None ? Number of children: None ? Years of education: None ? Highest education level: None Occupational History ? None Tobacco Use ? Smoking status: Former Smoker Quit date: 05/16/2017 Years since quittin.1 ? Smokeless tobacco: Never Used Vaping Use ? Vaping Use: Never used Substance and Sexual Activity ? Alcohol use: Not Currently ? Drug use: Never ? Sexual activity: Not Currently Partners: Male Other Topics Concern ? None Social History Narrative ? None Social Determinants of Health Financial Resource Strain: ? Difficulty of Paying Living Expenses: Food Insecurity: ? Worried About Running Out of Food in the Last Year: ? Ran Out of Food in the Last Year: Transportation Needs: ? Lack of Transportation (Medical): ? Lack of Transportation (Non-Medical): Physical Activity: ? Days of Exercise per Week: ? Minutes of Exercise per Session: Stress: ? Feeling of Stress : Social Connections: ? Frequency of Communication with Friends and Family: ? Frequency of Social Gatherings with Friends and Family: ? Attends Roman [employer] Services: ? Active Member of Clubs or Organizations: ? Attends Club or Organization Meetings: ? Marital Status: Intimate Partner Violence: ? Fear of Current or Ex-Partner: ? Emotionally Abused: ? Physically (more content not included)... Normal [facility] ED Provider Note Emergency Department Encounter [facility] EMERGENCY DEPT Patient: Leelee Zamora : 1995 Date of Evaluation: 06/22/2021 ED Supervising Physician: Ceasar Fenton MD I independently examined and evaluated Leelee Zamora. In brief, Leelee Zamora is a 26 y.o. female that presents to the emergency department concerned about episiotomy infection. Patient was recently hospitalized with C. difficile colitis. She is concerned that her episiotomy incision site is infected. The patient also states that she has been passing gas from her vagina. History of rectovaginal fistula. Focused exam: Awake and alert, no acute distress, hemodynamically stable. Normocephalic, atraumatic. Trachea midline. Breathing comfortably on room air. Breath sounds are clear to auscultation bilaterally. Regular rate and rhythm. Abdomen is soft, nondistended, nontender. No rebound or guarding. The patient moves all extremities equally. Distal pulses are intact and equal bilaterally. Brief ED course/MDM: Patient was evaluated by MATERIALS ANALYST in the emergency department. She was cleared for discharge with close outpatient follow-up. Continue treatment for C. difficile colitis. Episiotomy site is well-healing without evidence of acute infection. Patient has follow-up with Dr. Ramirez in 2 days ECG: None obtained Total critical care time today provided was at least 0 minutes. All diagnostic, treatment, and disposition decisions were made by myself in conjunction with the Resident. I also supervised castro portions of any procedures performed by the Resident. For all further details of the patient's emergency department visit, please see their documentation. (Please note that portions of this note may have been completed with a voice recognition program. Efforts were made to edit the dictations but occasionally words are mis-transcribed.) Ceasar Fenton MD Acute [facility] Ceasar Fenton MD 06/24/212107 Normal [facility] Hemogramon 06-22-2021 Erythrocyte distribution width (RBC) [Ratio] 15.8 % High 11.5-14.5 [facility] Comment on above: Performed By: #### C MP3, HEMDF #### [address] [address] Hematocrit (Bld) [Volume fraction] 33.0 % Low 35.0-47.0 [facility] Comment on above: Performed By: #### C MP3, HEMDF #### [address] [address] Hemoglobin (Bld) [Mass/Vol] 10.8 g/dL Low 11.7-16.0 [facility] Comment on above: Performed By: #### C MP3, HEMDF #### [address] [address] MCH (RBC) [Entitic mass] 26.4 pg Normal 26.0-34.0 [facility] Comment on above: Performed By: #### C MP3, HEMDF #### [address] [address] MCHC 32.6 % Normal 32.0-36.0 [facility] Comment on above: Performed By: #### C MP3, HEMDF #### [address] [place], [place] MCV (RBC) [Entitic vol] 81.0 fL Normal 79.0-98.0 [facility] Comment on above: Performed By: #### C MP3, HEMDF #### [facility] [address], [place] Platelet mean volume (Bld) [Entitic vol] 7.3 fL Low 7.4-10.4 [facility] Comment on above: Performed By: #### C MP3, HEMDF #### [address] [address] [place], [place] Platelets (Bld) [#/Vol] 330 10*3/uL Normal 140-440 [facility] Comment on above: Performed By: #### C MP3, HEMDF #### [address] [address] [place], [place] RBC (Bld) [#/Vol] 4.08 10*6/uL Normal 3.80-5.20 [facility] Comment on above: Performed By: #### C MP3, HEMDF #### [address] [address] [place], [place] WBC (Bld) [#/Vol] 6.2 10*3/uL Normal 3.6-10.7 [facility] Comment on above: Performed By: #### C MP3, HEMDF #### [address] [address] [place], [place] Hemogram (CBC)Ordered By: Sa rajni Escobar on 06-22-2021 Hematocrit (Bld) [Volume fraction] 33.0 % Low 35.0 - 47.0 % [facility] Work Phone: [phone] Hemoglobin.gastrointe stinal spec 1 Ql (Stl) 10.8 g/dL Low 11.7 - 16.0 g/dL [facility] Work Phone: Interpretation and review of laboratory results Abnormal [facility] Work Phone: MCH (RBC) [Entitic mass] 26.4 pg 26.0 - 34.0 pg [facility] Work Phone: [phone] MCHC (RBC) [Mass/Vol] 32.6 % 32.0 - 36.0 % [facility] Work Phone: 1 MCV (RBC) [Entitic vol] 81.0 fL 79.0 - 98.0 fL [facility] Work Phone: Platelet distribution width (Bld) [Ratio] 15.8 % High 11.5 - 14.5 % [facility] Work Phone: Platelet mean volume (Bld) [Entitic vol] 7.3 fL Low 7.4 - 10.4 fL [facility] Work Phone: [phone] Platelets (Bld) [#/Vol] 330 10*3/uL 140 - 440 10*3/uL [employer] Work Phone: RBC (Bld) [#/Vol] 4.08 10*6/uL 3.80 - 5.2 0 10*6/uL [facility] Work Phone: WBC (Bld) [#/Vol] 6.2 10*3/uL 3.6 - 10.7 10*3/uL [employer] Work Phone: Test Performed by [facility], [address] [place] [id number] [facility] Work Phone: [facility] Work Phone: Lipaseon 06-22-2021 Lipase [Catalytic activity/Vol] 38 U/L Normal 23-300 [facility] [employer] Comment on above: Performed By: #### C MP3, HEMDF #### [facility] [address] [place] [phone] LipaseOrdered By: Shelley chávez on 06-22-2021 Lipase [Catalytic activity/Vol] 38 U/L 23 - 300 U/L [facility] Work Phone: No Panel InformationOrdered By: Shelley Escobar on 06-22-2021 Test Performed by [facility] [employer], [address] [place] [address] [facility] Work Phone: [facility] Work Phone: UrinalysisOrdered By: Vianey Escobar on 06-22-2021 Appearance (U) Turbid Abnormal Clear NA [facility] Work Phone: [phone] Comment on above: . Bacteria, UA Few Abnormal Negative /[HPF] [facility] Work Phone: [phone] Comment on above: . Bilirubin Urine Negative Negative mg/dL [facility] Work Phone: [phone] Comment on above: . Color (U) Yellow Lt. Yellow NA [facility] Work Phone: [phone] Comment on above: . Glucose, Ur Normal Normal (<70) mg/dL [facility] Work Phone: [phone] Comment on above: . Hyaline Casts, UA Negative Negative /[LPF] [facility] Work Phone: [phone] Comment on above: . Interpretation and review of laboratory results Abnormal [employer] Work Phone: [phone] Ketones Ql (U) Negative Negative mg/dL [facility] Work Phone: [phone] Comment on above: . LEUKOCYTES, UA 500 Abnormal Negative Delmy/uL [facility] Work Phone: [phone] Comment on above: . Mucous Threads Few Negative /[LPF] [facility] Work Phone: [phone] Comment on above: . Nitrite, Urine Negative Negative NA [facility] Work Phone: [phone] Comment on above: . Occult Blood,Urine 0.1 mg/dL Abnormal Negative [employer] Work Phone: [phone] Comment on above: . pH (U) 7.5 [pH] [facility] Work Phone: [phone] Comment on above: . RBC, UA 0-2 0 - 2 /[HPF] [facility] Work Phone: [phone] Comment on above: . Specific [place], Urine <1.005 Abnormal [employer] Work Phone: [phone] Comment on above: . Squam Epithel, UA 3-5 3 - 5 /[HPF] [facility] Work Phone: [phone] Comment on above: . Total Protein, Urine Negative Negative mg/dL [facility] Work Phone: [phone] Comment on above: . Urobilinogen, Urine Normal Normal ( 0-1) mg/dL [facility] Work Phone: [phone] Comment on above: . WBC Clumps, Urine Few Abnormal Negative /[HPF] [facility] Work Phone: [phone] Comment on above: . WBC, UA >100 Abnormal 0 - 5 /[HPF] [facility] Work Phone: [phone] Comment on above: . Test Performed by [facility] [employer], [address] [place] [address] [facility] Work Phone: [phone] [facility] Work Phone: [phone] CULTURE URINEon 06-10-2021 CULTURE URINE CULTURE URINE --> Status: F Insignificant growth based on current clinical guidelines. Normal [facility] Comment on above: Performed By: #### C /UR #### [facility] [employer] [address] [place] [address] Add On Lab TestOrdered By: Michel Calix on 06-09-2021 Add On Accepted [facility] Work Phone: [phone] Comment on above: Specimen available & acceptable for analysis. Test Performed by [facility], [address] [place] [address] [employer] Work Phone: [phone] [facility] Work Phone: [phone] Add on test from HISon 06-09 Add on test from HIS Accepted Normal [facility] Comment on above: Result Comment: Spec imen available & acceptable for analysis. Performed By: #### A DDON #### [facility] [employer] [address] [place] [address] C. Trachomatis / N. Gonorrho eae, DNAOrdered By: Sam Calix on 06-09-2021 C. trachomatis DNA SANJEEV+probe Ql (Genital specimen) NOT Detected Chlamydia trachomatis Nucleic Acid NOT Detected by DNA Amplification using the [employer] System. Culture is the only recommended test in medical-legal cases such as suspected child abuse or molestation. [facility] Work Phone: [phone] N. gonorrhoeae DNA SANJEEV+probe Ql (Unsp spec) NOT Detected Neisseria gonorrhoeae Nucleic Acid NOT Detected by DNA Amplification using the [employer] System. Culture is the only recommended test in medical-legal cases such as suspected child abuse or molestation. [employer] Work Phone: Test Performed by [facility], [address] [place] [id number] [facility] Work Phone: [phone] [facility] Work Phone: CT Abdomen and Pelvis W cont rast IVOrdered By: Michelle Stallings on 06-09-2021 Patient Name: LEELEE ZAMORA Computed Tomography ACCESSION EXAM DATE/TIME PROCEDURE ORDERING PROVIDER [id number] 06/09/2021 14:[address] Abdomen/Pelvis w/ IV [id number] -STALLINGS, Contrast (IV Onl MICHELLE CPT code 19914 Q9967 Reason For Exam (CT Abdomen/Pelvis w/ IV Contrast (IV Onl) pelvic pain, unable to urinate, s/p episiotomy with dehiscence and abscess Report CLINICAL INFORMATION: Recent . Abdominal and pelvic pain. Fever. Difficulty urinating. CT ABDOMEN AND PELVIS WITH INTRAVENOUS CONTRAST: Contrast: Isovue-370, [address] ABDOMEN: Volume acquisition CT images are obtained from diaphragm to iliac crests following intravenous contrast only with axial, coronal and sagittal 2-D reconstructions. Oral contrast was withheld by request of the ordering physician. The absence of oral contrast reduces the sensitivity of the examination. Images through the lower chest demonstrate no abnormal pleural or parenchymal densities. The liver, spleen, pancreas and kidneys are unremarkable in size, configuration and density except for a round well-defined 1.3 cm hypodense lesion in the anterior aspect of the left lobe the liver most likely a small cyst or hemangioma. There are no calcified renal or proximal ureteral calculi on either side. There is no hydronephrosis. There is no of abnormality of the gallbladder. There is no adrenal gland mass or enlargement. No ascites or retroperitoneal lymphadenopathy is seen. No focal mass, fluid collection or inflammatory changes are identified. There is a normal-appearing appendix. There is no abnormality of the abdominal aorta. CT PELVIS: Volume acquisition CT images were obtained from the iliac crests to the symphysis pubis following intravenous contrast only with axial, coronal and sagittal 2-D reconstructions. There is and incompletely distended unopacified urinary bladder without calcified calculus or other visible abnormality. Uterus is mildly enlarged but unusual for recent status. The Computed Tomography Report endometrial canal is prominent likely related to the menstrual cycle phase. No focal mass or fluid collection is seen. There is no iliac or inguinal lymphadenopathy. No ascites or inflammatory changes are identified. IMPRESSION: 1. Indeterminant small round well-defined hypodense left lobe liver lesion most likely a small cyst or hemangioma. 2. No evidence of other mass, focal fluid collection, lymphadenopathy or inflammatory process. Report Dictated on --- Final --- Dictated: 06/09/2021 2:51 pm Dictating Physician: MD WILSON HARLAN Signed Date and Time: 06/09/2021 2:58 pm Signed by: MD WILSON HARLAN Transcribed Date and Time: 06/09/2021 2:51 [facility] Work Phone: [place], [facility] Incoming Rad[facility] Results From [facility] - 06/09/2021 3:00 PM EDT [facility]: [id number] ACCESSION EXAM DATE/TIME PROCEDURE ORDERING PROVIDER [id number] 06/09/2021 14:[address] Abdomen/Pelvis w/ IV [id number] -CHANDRAKANT, Contrast (IV Onl MICHELLE CPT code 44866 Q9967 Reason For Exam (CT Abdomen/Pelvis w/ IV Contrast (IV Onl) pelvic pain, unable to urinate, s/p episiotomy with dehiscence and abscess Report CLINICAL INFORMATION: Recent . Abdominal and pelvic pain. Fever. Difficulty urinating. CT ABDOMEN AND PELVIS WITH INTRAVENOUS CONTRAST: Contrast: Isovue-370, [address] ABDOMEN: Volume acquisition CT images are obtained from diaphragm to iliac crests following intravenous contrast only with axial, coronal and sagittal 2-D reconstructions. Oral contrast was withheld by request of the ordering physician. The absence of oral contrast reduces the sensitivity of the examination. Images through the lower chest demonstrate no abnormal pleural or parenchymal densities. The liver, spleen, pancreas and kidneys are unremarkable in size, configuration and density except for a round well-defined 1.3 cm hypodense lesion in the anterior aspect of the left lobe the liver most likely a small cyst or hemangioma. There are no calcified renal or proximal ureteral calculi on either side. There is no hydronephrosis. There is no of abnormality of the gallbladder. There is no adrenal gland mass or enlargement. No ascites or retroperitoneal lymphadenopathy is seen. No focal mass, fluid collection or inflammatory changes are identified. There is a normal-appearing appendix. There is no abnormality of the abdominal aorta. CT PELVIS: Volume acquisition CT images were obtained from the iliac crests to the symphysis pubis following intravenous contrast only with axial, coronal and sagittal 2-D reconstructions. There is and incompletely distended unopacified urinary bladder without calcified calculus or other visible abnormality. Uterus is mildly enlarged but unusual for recent status. The Computed Tomography Report endometrial canal is prominent likely related to the menstrual cycle phase. No focal mass or fluid collection is seen. There is no iliac or inguinal lymphadenopathy. No ascites or inflammatory changes are identified. IMPRESSION: 1. Indeterminant small round well-defined hypodense left lobe liver lesion most likely a small cyst or hemangioma. 2. No evidence of other mass, focal fluid collection, lymphadenopathy or inflammatory process. Report Dictated on --- Final --- Dictated: 06/09/2021 2:51 pm Dictating Physician: MD WILSON HARLAN Signed Date and Time: 06/09/2021 2:58 pm Signed by: MD WILSON HARLAN Transcribed Date and Time: 06/09/2021 2:51 [facility] Work Phone: [facility] Work Phone: CT Abdomen/Pelvis w/ Contras ton 06-09-2021 CT Abdomen/Pelvis w/ Contrast Patient Name: LEELEE ZAMORA Computed Tomography ACCESSION EXAM DATE/TIME PROCEDURE ORDERING PROVIDER [id number] 06/09/2021 14:[address] Abdomen/Pelvis w/ IV [id number] -CHANDRAKANT, Contrast (IV Onl MICHELLE CPT code 00489 Q9967 Reason For Exam (CT Abdomen/Pelvis w/ IV Contrast (IV Onl) pelvic pain, unable to urinate, s/p episiotomy with dehiscence and abscess Report CLINICAL INFORMATION: Recent . Abdominal and pelvic pain. Fever. Difficulty urinating. CT ABDOMEN AND PELVIS WITH INTRAVENOUS CONTRAST: Contrast: Isovue-370, [address] ABDOMEN: Volume acquisition CT images are obtained from diaphragm to iliac crests following intravenous contrast only with axial, coronal and sagittal 2-D reconstructions. Oral contrast was withheld by request of the ordering physician. The absence of oral contrast reduces the sensitivity of the examination. Images through the lower chest demonstrate no abnormal pleural or parenchymal densities. The liver, spleen, pancreas and kidneys are unremarkable in size, configuration and density except for a round well-defined 1.3 cm hypodense lesion in the anterior aspect of the left lobe the liver most likely a small cyst or hemangioma. There are no calcified renal or proximal ureteral calculi on either side. There is no hydronephrosis. There is no of abnormality of the gallbladder. There is no adrenal gland mass or enlargement. No ascites or retroperitoneal lymphadenopathy is seen. No focal mass, fluid collection or inflammatory changes are identified. There is a normal-appearing appendix. There is no abnormality of the abdominal aorta. CT PELVIS: Volume acquisition CT images were obtained from the iliac crests to the symphysis pubis following intravenous contrast only with axial, coronal and sagittal 2-D reconstructions. There is and incompletely distended unopacified urinary bladder without calcified calculus or other visible abnormality. Uterus is mildly enlarged but unusual for recent status. The Computed Tomography Report endometrial canal is prominent likely related to the menstrual cycle phase. No focal mass or fluid collection is seen. There is no iliac or inguinal lymphadenopathy. No ascites or inflammatory changes are identified. IMPRESSION: 1. Indeterminant small round well-defined hypodense left lobe liver lesion most likely a small cyst or hemangioma. 2. No evidence of other mass, focal fluid collection, lymphadenopathy or inflammatory process. Report Dictated on Final Dictated: 06/09/2021 2:51 pm Dictating Physician: MD WILSON HARLAN Signed Date and Time: 06/09/2021 2:58 pm Signed by: MD WILSON HARLAN Transcribed Date and Time: 06/09/2021 2:51 Normal [facility] Chlamydia and GC PCR Panelon 06-09-2021 Chlamydia and GC PCR Panel Chlamydia trachomatis PCR --> Status: F NOT Detected Chlamydia trachomatis Nucleic Acid NOT Detected by DNA Amplification using the Cepheid System. Culture is the only recommended test in medical-legal cases such as suspected child abuse or molestation. Chlamydia trachomatis Nucleic Acid NOT Detected by DNA Amplification using the CepSmartVineyardid System. Culture is the only recommended test in medical-legal cases such as suspected child abuse or molestation. Neisseria gonorrhoeae PCR --> Status: F NOT Detected Neisseria gonorrhoeae Nucleic Acid NOT Detected by DNA Amplification using the CepSmartVineyardid System. Culture is the only recommended test in medical-legal cases such as suspected child abuse or molestation. Neisseria gonorrhoeae Nucleic Acid NOT Detected by DNA Amplification using the CepSmartVineyardid System. Culture is the only recommended test in medical-legal cases such as suspected child abuse or molestation. Normal [facility] Comment on above: Performed By: #### C TNGP #### [address] [address] [address] [place], [place] Comp Metabolic Panelon 06-09 ALP [Catalytic activity/Vol] 80 U/L Normal 38-126 [facility] Comment on above: Performed By: #### C MP3, HEMDF #### [address] [address] [address] [place], [place] ALT [Catalytic activity/Vol] 16 U/L Normal 0-34 [facility] Comment on above: Result Comment: The ALT test is performed by an updated assay method. Please note that the reference intervals have been changed and are now sex specific. Performed By: #### C MP3, HEMDF #### [address] [address] [address] [place], [place] Calcium [Mass/Vol] 9.1 mg/dL Normal 8.4-10.4 [facility] Comment on above: Performed By: #### C MP3, HEMDF #### [address] [address] [address] [place], [place] Glucose [Mass/Vol] 97 mg/dL Normal 70-100 [facility] Comment on above: Performed By: #### C MP3, HEMDF #### [address] [address] [address] [place], [place] Urea nitrogen [Mass/Vol] 8 mg/dL Normal 7-20 [facility] Comment on above: Performed By: #### C MP3, HEMDF #### [facility] [address] [place] [address] Anion gap [Moles/Vol] 9 mmol/L Normal 3-13 [facility] Comment on above: Performed By: #### C MP3, HEMDF #### [facility] [address] [place] [address] AST [Catalytic activity/Vol] 22 U/L Normal 15-46 [facility] Comment on above: Performed By: #### C MP3, HEMDF #### [facility] [address] [place] [address] Bilirubin [Mass/Vol] 0.6 mg/dL Normal 0.2-1.3 [facility] Comment on above: Performed By: #### C MP3, HEMDF #### [facility] [address] [place] [address] CO2 [Moles/Vol] 23 mmol/L Normal 22-30 [facility] Comment on above: Performed By: #### C MP3, HEMDF #### [facility] [address] [place] [address] Creatinine [Mass/Vol] 0.53 mg/dL Normal 0.52-1.25 [facility] Comment on above: Performed By: #### C MP3, HEMDF #### [facility] [address] [place] [address] eGFR OTHER > 90.0 Normal >60 [facility] Comment on above: Result Comment: KDIG O guidelines provide the following GFR categories: Stage GFR(ml/min/1.73 m2) Terms G1 >=90 Normal or high G2 60-89 Mildly decreased* G3a 45-59 Mildly to moderately decreased G3b 30-44 Moderately to severely decreased G4 15-29 Severely decreased G5 <15 Kidney failure *Relative to young adult level. In the absence of evidence of kidney damage, neither GFR category G1 nor G2 fulfill the criteria for CKD. The CKD-EPI equation is validated in individuals 18 years of age and older. Currently the best equation for estimating glomerular filtration rate (GFR) from serum creatinine in children is the Bedside Pablo equation. It is less accurate in patients with extremes of muscle mass, restriction of dietary protein, ingestion of creatine, extra-renal metabolism of creatinine, or treatment with medications that affect renal tubular creatinine secretion. Performed By: #### C MP3, HEMDF #### [address] [address] [address] [place], [place] GFR/1.73 sq M.predicted among blacks MDRD (S/P/Bld) [Vol rate/Area] mL/min/{1.73_m2} Normal >60 [facility] Comment on above: Performed By: #### C MP3, HEMDF #### [address] [address] [address] [place], [place] Protein [Mass/Vol] 6.8 g/dL Normal 6.3-8.2 [facility] Comment on above: Performed By: #### C MP3, HEMDF #### [address] [address] [address] [place], [place] Potassium [Moles/Vol] 3.8 mmol/L Normal 3.5-5.1 [facility] Comment on above: Performed By: #### C MP3, HEMDF #### [address] [address] [address] [place], [place] Sodium [Moles/Vol] 140 mmol/L Normal 135-145 [facility] Comment on above: Performed By: #### C MP3, HEMDF #### [address] [address] [address] [place], [place] Albumin [Mass/Vol] 4.0 g/dL Normal 3.5-5.0 [facility] Comment on above: Performed By: #### C MP3, HEMDF #### [address] [place] [address] [address] [place], [place] Chloride [Moles/Vol] 108 mmol/L High 98-107 [facility] Comment on above: Performed By: #### C MP3, HEMDF #### [address] [place] [address] [address] [place], [place] Complete Urinalysison 2020 Appearance (U) Turbid Abnormal Clear [facility] Comment on above: Result Comment: . Performed By: #### C MP3, HEMDF #### [address] [place] [address] [address] [place], [place] Bacteria Few Abnormal Negative [facility] Comment on above: Result Comment: . Performed By: #### C MP3, HEMDF #### [facility] [address] [place], [place] Bilirubin,Urine Negative Normal Negative [facility] Comment on above: Result Comment: . Performed By: #### C MP3, HEMDF #### [facility] [address] [place], [place] Cast, Hyaline Negative Normal Negative [facility] Comment on above: Result Comment: . Performed By: #### C MP3, HEMDF #### [place] [address] [address] [place], [place] Color (U) Light-Yellow Normal Lt. Yellow [facility] Comment on above: Result Comment: . Performed By: #### C MP3, HEMDF #### [place] [address] [address] [place], [place] Glucose Ql (U) Normal Normal Normal (<70) [facility] Comment on above: Result Comment: . Performed By: #### C MP3, HEMDF #### [address] [place] [address] [address] [place], [place] Ketone,Urine Negative Normal Negative [facility] Comment on above: Result Comment: . Performed By: #### C MP3, HEMDF #### [place] [address] [address] [place], [place] Leukocytes,Urine 500 Delmy/uL Abnormal Negative [facility] Comment on above: Result Comment: . Performed By: #### C MP3, HEMDF #### [facility] [address] [place] Mucous Threads Few Normal Negative [facility] Comment on above: Result Comment: . Performed By: #### C MP3, HEMDF #### [place] [address] [address] [place], [place] Nitrites,Urine Negative Normal Negative [facility] Comment on above: Result Comment: . Performed By: #### C MP3, HEMDF #### [address] [place] [address] [address] [place], [place] Non-Squamous Epithelial 1 /[HPF] Abnormal Negative [facility] Comment on above: Result Comment: . Performed By: #### C MP3, HEMDF #### [address] [address] [address] [place], [place] Occult Blood,Urine 0.2 mg/dL Abnormal Negative [facility] Comment on above: Result Comment: . Performed By: #### C MP3, HEMDF #### [address] [place] [address] [address] [place], [place] pH,Urine 6.5 Normal 5.0-8.0 [facility] Comment on above: Result Comment: . Performed By: #### C MP3, HEMDF #### [place] [address] [address] [place], [place] RBC, Urine 26 - 50 Abnormal 0-2 [facility] Comment on above: Result Comment: . Performed By: #### C MP3, HEMDF #### [place] [address] [address] [place], [place] Specific [place],Urine 1.014 Normal 1.005 - 1.030 [facility] Comment on above: Result Comment: . Performed By: #### C MP3, HEMDF #### [place] [address] [address] [place], [place] Squamous Epithelial 11 - 25 Abnormal 3-5 [facility] Comment on above: Result Comment: . Performed By: #### C MP3, HEMDF #### [address] [address] [address] [place], [place] Total Protein,Urine Negative Normal Negative [facility] Comment on above: Result Comment: . Performed By: #### C MP3, HEMDF #### [address] [place] [address] [address] [place], [place] Urobilinogen,Urine Normal Normal Normal (0-1) [facility] Comment on above: Result Comment: . Performed By: #### C MP3, HEMDF #### [address] [address] [address] [place], [place] WBC, Urine 51 - 100 Abnormal 0-5 [facility] Comment on above: Result Comment: . Performed By: #### C MP3, HEMDF #### [facility] [address] [place] [address] Comprehensive Metabolic Pane lOrdered By: Michelle Stallings on 06-09-2021 Albumin [Mass/Vol] 4.0 g/dL 3.5 - 5.0 g/dL [facility] Work Phone: [phone] ALP (Bld) [Catalytic activity/Vol] 80 U/L 38 - 126 U/L [facility] Work Phone: [phone] ALT [Catalytic activity/Vol] 16 U/L 0 - 34 U/L [facility] Work Phone: [phone] Comment on above: The ALT test is perf ormed by an updated assay method. Please note that the reference intervals have been changed and are now sex specific. Anion gap [Moles/Vol] 9 mmol/L 3 - 13 mmol/L [facility] Work Phone: [phone] AST [Catalytic activity/Vol] 22 U/L 15 - 46 U/L [facility] Work Phone: [phone] Bilirubin [Mass/Vol] 0.6 mg/dL 0.2 - 1 .3 mg/dL [facility] Work Phone: [phone] Calcium [Mass/Vol] 9.1 mg/dL 8.4 - 10. 4 mg/dL [facility] Work Phone: [phone] Chloride [Moles/Vol] 108 mmol/L High 98 - 10 7 mmol/L [facility] Work Phone: [phone] CO2 [Moles/Vol] 23 mmol/L 22 - 30 mmol/L [facility] Work Phone: [phone] Creatinine [Mass/Vol] 0.53 mg/dL 0.52 - 1.25 mg/dL [facility] Work Phone: [phone] EGFR IF NonAfrican [place]ayan >90.0 >60 mL/min [facility] Work Phone: [phone] Comment on above: KDIGO guidelines pro vide the following GFR categories: Stage GFR(ml/min/1.73 m2) Terms G1 >=90 Normal or high G2 60-89 Mildly decreased* G3a 45-59 Mildly to moderately decreased G3b 30-44 Moderately to severely decreased G4 15-29 Severely decreased G5 <15 Kidney failure *Relative to young adult level. In the absence of evidence of kidney damage, neither GFR category G1 nor G2 fulfill the criteria for CKD. The CKD-EPI equation is validated in individuals 18 years of age and older. Currently the best equation for estimating glomerular filtration rate (GFR) from serum creatinine in children is the Bedside Pablo equation. It is less accurate in patients with extremes of muscle mass, restriction of dietary protein, ingestion of creatine, extra-renal metabolism of creatinine, or treatment with medications that affect renal tubular creatinine secretion. Free PSA/Total PSA [Mass fraction] 6.8 g/dL 6.3 - 8.2 g/dL [facility] Work Phone: [phone] GFR/1.73 sq M.predicted among blacks MDRD (S/P/Bld) [Vol rate/Area] mL/min/{1.73_m2} >60 mL/min [facility] Work Phone: Glucose [Mass/Vol] 97 mg/dL 70 - 100 mg/dL [facility] Work Phone: Interpretation and review of laboratory results Abnormal [facility] Work Phone: Potassium [Moles/Vol] 3.8 mmol/L 3.5 - 5.1 mmol/L [facility] Work Phone: Sodium [Moles/Vol] 140 mmol/L 135 - 145 mmol/L [facility] Work Phone: Urea nitrogen (BldV) [Mass/Vol] 8 mg/dL 7 - 20 mg/dL [facility] Work Phone: Test Performed by [facility], [address] [place] [id number] [facility] Work Phone: [facility] Work Phone: ED Provider Noteon ED Provider Note [facility] EMERGENCY DEPT EMERGENCY DEPARTMENT ENCOUNTER Pt Name: Leelee Zamora Birthdate 1995 Date of evaluation: 06/09/2021 Provider: Michelle Stallings MD CHIEF COMPLAINT Chief Complaint Patient presents with ? Complications pt c/o vaginal/anal/urethral pain s/p vaginal 35 days ago. Patient was started on abx Delia for uterine infection, initially improved but now worse. Chills at home. HISTORY OF PRESENT ILLNESS (Location/Symptom, Timing/Onset, Context/Setting, Quality, Duration, Modifying Factors, Severity) Note limiting factors. Leelee Zamora is a 26 y.o. female with medical history significant for recent and normal vaginal delivery complicated by fourth degree laceration presents to the emergency department with pelvic pain. Patient reports that she has undergone multiple surgeries with complications, she is now having pain around her rectum as well as her uterine region. She reports that on Thursday she was diagnosed with endometritis, and sent home on Flagyl and amoxicillin. Patient reports however the pain has only become worse and she has been having some greenish-yellowish discharge as well as her lochia. She reports that fever of 96 degrees at home, she also reports that it has been difficult to pee as she needs to position herself a certain way for urine to drain. Chest burning on urination which has been ongoing since her . She is breast-feeding well without any issues. Is not on anything for pain. Per chart review she gave on 05/05 and suffered 1/4 degree laceration. She developed and episiotomy dehiscence which was repaired on 05/16, and was admitted for IV antibiotics for 24 hours. Nursing Notes were reviewed. REVIEW OF SYSTEMS (2+ for level 4; 10+ for level 5) Review of Systems Constitutional: Negative for chills, diaphoresis and fever. HENT: Negative for congestion and rhinorrhea. Eyes: Negative for visual disturbance. Respiratory: Negative for cough, shortness of breath and wheezing. Cardiovascular: Negative for chest pain. Gastrointestinal: Positive for abdominal pain and rectal pain. Negative for constipation, diarrhea, nausea and vomiting. Genitourinary: Positive for difficulty urinating, dysuria, pelvic pain and vaginal pain. Negative for flank pain. Musculoskeletal: Negative for arthralgias and myalgias. Skin: Negative for rash. Neurological: Negative for dizziness, light-headedness and headaches. Psychiatric/Behavioral: Negative for sleep disturbance. PAST MEDICAL HISTORY Past Medical History: Diagnosis Date ? Gestational diabetes SURGICAL HISTORY Past Surgical History: Procedure Laterality Date ? CYST INCISION AND DRAINAGE ? DILATION AND CURETTAGE OF UTERUS ? OTHER SURGICAL HISTORY 05/16/2021 RV fistula repair, perineorraphy ? WISDOM TOOTH EXTRACTION CURRENT MEDICATIONS Previous Medications DOCUSATE SODIUM (COLACE, DULCOLAX) 100 MG CAPS Take 100 mg by mouth 2 times daily IBUPROFEN (ADVIL;MOTRIN) 600 MG TABLET Take 1 tablet by mouth every 6 hours as needed for Pain POLYETHYLENE GLYCOL (GLYCOLAX) 17 G PACKET Take 17 g by mouth daily ALLERGIES Cranberry, Nuts [peanut-containing drug products], and Morphine FAMILY HISTORY History reviewed. No pertinent family history. SOCIAL HISTORY Social History Socioeconomic History ? Marital status: Spouse name: None ? Number of children: None ? Years of education: None ? Highest education level: None Occupational History ? None Tobacco Use ? Smoking status: Former Smoker Quit date: 05/16/2017 Years since quittin.0 ? Smokeless tobacco: Never Used Vaping Use ? Vaping Use: Never used Substance and Sexual Activity ? Alcohol use: Not Currently ? Drug use: Never ? Sexual activity: None Other Topics Concern ? None Social History Narrative ? None Social Determinants of Health Financial Resource Strain: ? Difficulty of Paying Living Expenses: Food Insecurity: ? Worried About Running Out of Food in the Last Year: ? Ran Out of Food in the Last Year: Transportation Needs: ? Lack of Transportation (Medical): ? Lack of Transportation (Non-Medical): Physical Activity: ? Days of Exercise per Week: ? Minutes of Exercise per Session: Stress: ? Feeling of Stress : Social Connections: ? Frequency of Communication with Friends and Family: ? Frequency of Social Gatherings with Friends and Family: ? Attends Roman [employer] Services: ? Active Member of Clubs or Organizations: ? Attends Club or Organization Meetings: ? Marital Status: Intimate Partner Violence: ? Fear of Current or Ex-Partner: ? Emotionally Abused: ? Physically Abused: ? Sexually Abused: SCREENINGS PHYSICAL EXAM (up to 7 for level 4, 8 or more for level 5) ED Triage Vitals BP Temp Temp Source Pulse Resp SpO2 Height Weight 06/09/21 1112 06/09/21 1112 06/09/21 1112 06/09/21 1112 06/09/21 1112 06/09/21 (more content not included)... Normal [facility] ED Provider Note Emergency Department Encounter [facility] EMERGENCY DEPT Patient: Leelee Zamora : 1995 Date of Evaluation: 06/09/2021 ED Supervising Physician: Sam Calix MD I independently examined and evaluated Leelee Zamora. I wore appropriate PPE for this encounter. In brief, Leelee Zamora is a 26 y.o. female that presents to the emergency department with chief complaint of lower abdominal pain with vaginal discharge. Patient is about 6 weeks status post vaginal delivery with grade 4 dehiscence with episiotomy. Patient reportedly had rectovaginal fistulaOperative repair by Dr. Ramirez from gynecology oncology surgery three and half weeks ago. Patient states that she saw her cable braider earlier this week and was started on amoxicillin and metronidazole for concern for injury metritis. Focused exam: 26-year-old adult female. Afebrile. Regular rate and rhythm. No work of breathing. Abdomen soft. Suprapubic, lower abdominal tenderness. No rebound or guarding. No CVA tenderness. Pelvic exam performed by resident provider. No gross discharge or abnormalities. Brief ED course/MDM: Patient evaluated for lower abdominal pain. Urinalysis concerning for possible urinary tract infection. Treated with gentamicin. Patient is afebrile. She is well-appearing. She has no leukocytosis in the setting of symptoms for several days. CT abdomen was unremarkable. Discussed with Dr. Rawls, on-call gynecology, oncology surgeon. No reported further recommendation at this time. Agrees patient is appropriate for discharge and outpatient follow-up with her cable braider ED Course as of Jun 09 2050 Sun Jun 09, 2021 1453 Hemogram (CBC) w/Auto Diff(!): WBC 6.8 RBC 4.49 Hemoglobin Quant 11.5(!) Hematocrit 36.8 MCV 82.0 MCH 25.7(!) MCHC 31.4(!) RDW 16.8(!) Platelet Count 299 MPV 6.8(!) Granulocytes % 70.8 Lymphocyte % 20.5 Monocytes 6.8 Eosinophils 1.5 Basophils 0.4 Absolute Neut # 4.8 Absolute Lymph # 1.4 Absolute Glacier # 0.5 Absolute Eos # 0.1 Basophils Absolute 0.0 [AD] 1453 Urinalysis(!): Glucose, UA Normal Total Protein, Urine Negative Bilirubin, Urine Negative Urobilinogen, Urine Normal pH, Urine 6.5 Specific [place], Urine 1.014 Occult Blood,Urine 0.2(!) Ketones, Urine Negative Nitrite, Urine Negative LEUKOCYTES, UA 500(!) Appearance Turbid(!) Color, UA Light-Yellow RBC, UA 26-50(!) WBC, UA 51-100(!) Squam Epithel, UA 11-25(!) Non-Squamous Epithelial 1(!) Bacteria, UA Few(!) Mucous Threads Few Hyaline Ca... [AD] 1453 Comprehensive Metabolic Panel(!): Sodium 140 Potassium 3.8 Chloride 108(!) CO2 23 Anion Gap 9 Glucose 97 BUN 8 Creatinine 0.53 eGFR >90.0 EGFR IF NonAfrican Uruguayan >90.0 Calcium 9.1 Albumin 4.0 Total Protein 6.8 Bilirubin 0.6 Alk Phos 80 ALT 16 AST 22 [AD] 1525 IMPRESSION: 1. Indeterminant small round well-defined hypodense left lobe liver lesion most likely a small cyst or hemangioma. 2. No evidence of other mass, focal fluid collection, lymphadenopathy or inflammatory process. [AD] [address] Rawls who is covering for Dr. Ramirez about this patient. Dr. Rawls believes that the work times thus far is appropriate, there is no indication to change antibiotics at this time, further consultation or hospitalization for this issue. She recommended to continue antibiotics and outpatient follow-up. [AD] ED Course User Index [AD] Michelle Stallings MD All diagnostic, treatment, and disposition decisions were made by myself in conjunction with the JESSICA. For all further details of the patient's emergency department visit, please see their documentation. (Please note that portions of this note may have been completed with a voice recognition program. Efforts were made to edit the dictations but occasionally words are mis-transcribed.) Sam Calix MD [employer] Sam Calix MD 06/09/212050 Normal [facility] Hemogram (CBC) w/Auto DiffOr dered By: Michelle Stallings on 06-09-2021 Absolute Baso # 0.0 10*3/uL 0.0 - 0.2 10*3/uL [facility] Work Phone: [phone] Absolute Neut # 4.8 10*3/uL 1.8 - 7.0 10*3/uL [facility] Work Phone: Basophils/100 WBC (Bld) 0.4 % 0.0 - 2.0 % [facility] Work Phone: Eosinophils (Bld) [#/Vol] 0.1 10*3/uL 0.0 - 0.5 10*3/uL [employer] Work Phone: Eosinophils/100 WBC (Bld) 1.5 % 1.0 - 6.0 % [employer] Work Phone: Granulocytes/100 WBC (Bld) 70.8 % 40.0 - 80.0 % [employer] Work Phone: Hematocrit (Bld) [Volume fraction] 36.8 % 35.0 - 47.0 % [employer] Work Phone: Hemoglobin.gastrointe stinal spec 1 Ql (Stl) 11.5 g/dL Low 11.7 - 16.0 g/dL [employer] Work Phone: Interpretation and review of laboratory results Abnormal [employer] Work Phone: Lymphocytes (Bld) [#/Vol] 1.4 10*3/uL 1.0 - 4.3 10*3/uL [employer] Work Phone: Lymphocytes/100 WBC (Bld) 20.5 % 20.0 - 40.0 % [employer] Work Phone: MCH (RBC) [Entitic mass] 25.7 pg Low 26.0 - 34.0 pg [employer] Work Phone: MCHC (RBC) [Mass/Vol] 31.4 % Low 32.0 - 36.0 % [employer] Work Phone: MCV (RBC) [Entitic vol] 82.0 fL 79.0 - 98.0 fL [employer] Work Phone: Monocytes (Bld) [#/Vol] 0.5 10*3/uL 0.0 - 0.8 10*3/uL [employer] Work Phone: Monocytes/100 WBC (Bld) 6.8 % 2.0 - 10.0 % [employer] Work Phone: Platelet distribution width (Bld) [Ratio] 16.8 % High 11.5 - 14.5 % [employer] Work Phone: Platelet mean volume (Bld) [Entitic vol] 6.8 fL Low 7.4 - 10.4 fL [facility] Work Phone: 1 Platelets (Bld) [#/Vol] 299 10*3/uL 140 - 440 10*3/uL [facility] Work Phone: 1 RBC (Bld) [#/Vol] 4.49 10*6/uL 3.80 - 5.2 0 10*6/uL [facility] Work Phone: 1) WBC (Bld) [#/Vol] 6.8 10*3/uL 3.6 - 10.7 10*3/uL [facility] Work Phone: 1 Test Performed by [facility], [address] [place] [id number] [facility] Work Phone: 1 [facility] Work Phone: [phone] Hemogram w/ Autodiffon 06-09 Abs Baso Cnt 0.0 10*3/uL Normal 0.0-0.2 [facility] Comment on above: Performed By: #### C MP3, HEMDF #### [address] [phone] Abs Neutrophile Cnt 4.8 10*3/uL Normal 1.8-7.0 [facility] Comment on above: Performed By: #### C MP3, HEMDF #### [address] [phone] Basophils/100 WBC (Bld) 0.4 % Normal 0.0-2.0 [facility] Comment on above: Performed By: #### C MP3, HEMDF #### [address] [address] Eosinophils (Bld) [#/Vol] 0.1 10*3/uL Normal 0.0-0.5 [facility] Comment on above: Performed By: #### C MP3, HEMDF #### [address] [address] Eosinophils/100 WBC (Bld) 1.5 % Normal 1.0-6.0 [facility] Comment on above: Performed By: #### C MP3, HEMDF #### [address] [address] [place] [place], [place] Erythrocyte distribution width (RBC) [Ratio] 16.8 % High 11.5-14.5 [facility] Comment on above: Performed By: #### C MP3, HEMDF #### [address] [address] [place], [place] Granulocytes/100 WBC (Bld) 70.8 % Normal 40.0-80.0 [facility] Comment on above: Performed By: #### C MP3, HEMDF #### [address] [address] [address] [place], [place] Hematocrit (Bld) [Volume fraction] 36.8 % Normal 35.0-47.0 [facility] Comment on above: Performed By: #### C MP3, HEMDF #### [address] [address] [place], [place] Hemoglobin (Bld) [Mass/Vol] 11.5 g/dL Low 11.7-16.0 [facility] Comment on above: Performed By: #### C MP3, HEMDF #### [address] [address] [address] [place], [place] Lymphocytes (Bld) [#/Vol] 1.4 10*3/uL Normal 1.0-4.3 [facility] Comment on above: Performed By: #### C MP3, HEMDF #### [address] [address] [address] [place], [place] Lymphocytes/100 WBC (Bld) 20.5 % Normal 20.0-40.0 [facility] Comment on above: Performed By: #### C MP3, HEMDF #### [address] [address] [place], [place] MCH (RBC) [Entitic mass] 25.7 pg Low 26.0-34.0 [facility] Comment on above: Performed By: #### C MP3, HEMDF #### [address] [address] [address] [place], [place] MCHC 31.4 % Low 32.0-36.0 [facility] Comment on above: Performed By: #### C MP3, HEMDF #### [address] [address] [address] [place], [place] MCV (RBC) [Entitic vol] 82.0 fL Normal 79.0-98.0 [facility] Comment on above: Performed By: #### C MP3, HEMDF #### [address] [address] [address] [place], [place] Monocytes (Bld) [#/Vol] 0.5 10*3/uL Normal 0.0-0.8 [facility] Comment on above: Performed By: #### C MP3, HEMDF #### [address] [address] [address] [place], [place] Monocytes/100 WBC (Bld) 6.8 % Normal 2.0-10.0 [facility] Comment on above: Performed By: #### C MP3, HEMDF #### [address] [address] [address] [place], [place] Platelet mean volume (Bld) [Entitic vol] 6.8 fL Low 7.4-10.4 [facility] Comment on above: Performed By: #### C MP3, HEMDF #### [address] [address] [place], [place] Platelets (Bld) [#/Vol] 299 10*3/uL Normal 140-440 [facility] Comment on above: Performed By: #### C MP3, HEMDF #### [address] [address] [address] [place], [place] RBC (Bld) [#/Vol] 4.49 10*6/uL Normal 3.80-5.20 [facility] Comment on above: Performed By: #### C MP3, HEMDF #### [address] [address] [address] [place], [place] WBC (Bld) [#/Vol] 6.8 10*3/uL Normal 3.6-10.7 [facility] Comment on above: Performed By: #### C MP3, HEMDF #### [facility] [address] [place] [phone] UrinalysisOrdered By: Michelle Stallings on 06-09-2021 Appearance (U) Turbid Abnormal Clear NA [employer] Work Phone: [phone] Comment on above: . Bacteria, UA Few Abnormal Negative /[HPF] [employer] Work Phone: [phone] Comment on above: . Bilirubin Urine Negative Negative mg/dL [facility] Work Phone: [phone] Comment on above: . Color (U) Light-Yellow Lt. Yellow NA [employer] Work Phone: [phone] Comment on above: . Glucose, Ur Normal Normal (<70) mg/dL [employer] Work Phone: [phone] Comment on above: . Hyaline Casts, UA Negative Negative /[LPF] [employer] Work Phone: [phone] Comment on above: . Interpretation and review of laboratory results Abnormal [employer] Work Phone: [phone] Ketones Ql (U) Negative Negative mg/dL [facility] Work Phone: [phone] Comment on above: . LEUKOCYTES, UA 500 Abnormal Negative Delmy/uL [employer] Work Phone: [phone] Comment on above: . Mucous Threads Few Negative /[LPF] [employer] Work Phone: [phone] Comment on above: . Nitrite, Urine Negative Negative NA [employer] Work Phone: [phone] Comment on above: . Non-Squamous Epithelial 1 /[HPF] Abnormal Negative [employer] Work Phone: [phone] Comment on above: . Occult Blood,Urine 0.2 mg/dL Abnormal Negative [employer] Work Phone: [phone] Comment on above: . pH (U) 6.5 [pH] [employer] Work Phone: [phone] Comment on above: . RBC, UA 26-50 Abnormal 0 - 2 /[HPF] [facility] Work Phone: [phone] Comment on above: . Specific [place], Urine 1.014 [employer] Work Phone: [phone] Comment on above: . Squam Epithel, UA 11-25 Abnormal 3 - 5 /[HPF] [facility] Work Phone: Comment on above: . Total Protein, Urine Negative Negative mg/dL [facility] Work Phone: Comment on above: . Urobilinogen, Urine Normal Normal ( 0-1) mg/dL [facility] Work Phone: Comment on above: . WBC, UA 51-100 Abnormal 0 - 5 /[HPF] [facility] Work Phone: Comment on above: . Test Performed by [facility], [address] [place] [id number] [facility] Work Phone: [employer] Work Phone: Vaginitis Panel PCRon 2020 Vaginitis Panel PCR Bacterial Vaginosis Markers PCR --> Status: F Negative Jojo spp. PCR --> Status: F Negative Jojo glabrata PCR --> Status: F Negative Jojo krusei PCR --> Status: F Negative Trichomonas vaginalis PCR --> Status: F Negative Expected Value: Negative Method: Real Time PCR by BD-MAX Expected Value: Negative Method: Real Time PCR by BD-MAX Normal [facility] Comment on above: Order Comment: Use U VE Collection Kit Performed By: #### V GPCR #### [address] [address] , [phone] EKG 12 LeadOrdered By: Kim Ramirez on 05-17-2021 [facility] Test Date: 2021-05-16 Pat Name: LEELEE ZAMORA Department: 1AUTS Room: [facility] 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1995 Requested By: YEMI RAMIREZ Order Number: [id number] Reading MD: Yemi Zheng Measurements Intervals Edison Rate: 66 P: 41 MS: 154 QRS: 16 QRSD: 106 T: 9 QT: 414 QTc: 434 Interpretive Statements Sinus rhythm Normal EKG Electronically Signed On 05-17-2021 8:58:56 EDT by Yemi Zheng [facility] Work Phone: [facility] Results From [employer] - 05/17/2021 9:00 AM EDT [employer] Test Date: 2021-05-16 Pat Name: LEELEE ZAMORA Department: 1ASDS Room: 5104 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 Results may be 10%-15% lower than serum/plasma values. (CLIA ID [id number]) Performed By: #### C MP3, HEMDF #### [facility] [address] [place] [phone] OPERATIVE REPORTOrdered By: 3m Scanning on 05-16-2021 [employer] Work Phone: Op Noteon 05-16-2021 Op Note PATIENT: SCHUYLER ZAMORA ADMISSION DATE: 05/16/2021 SURGERY DATE: 05/16/2021 DATE OF : 1995 AGE: 26 ADMITTING PHYSICIAN: Yemi Ramirez MD ATTENDING PHYSICIAN: Yemi Ramirez MD DICTATING PHYSICIAN: Yemi Ramirez MD OPERATIVE RECORD Procedure: 1. VAGINAL REPAIR OF RECTOVAGINAL FISTULA. 2. PERINEOPLASTY. Preoperative Diagnosis: Rectovaginal fistula. Postoperative Diagnosis: Rectovaginal fistula. Anesthesia: General. Description of Procedure: The patient was brought to the operating room. After administration of general anesthetic, he was placed in a high lithotomy position with the legs being carefully placed to avoid any nerve injury. Compression stockings were on and running. Time-out was performed. She underwent a sterile prep and drape. Exam under anesthesia did reveal a complete breakdown of the prior episiotomy with only a small bridge of annual tissue remaining. Therefore this was all completely taken down and the old suture material was removed. Starting at the vaginal mucosa, the vaginal mucosa edges were freed up from the rectovaginal space. This then also allowed the vaginal mucosal edges to be trended freshened up. The perineal skin was also freed up from the perineal body using sharp dissection. The external rectal sphincter was identified, was also freed up using Metzenbaum scissors to freed up completely around the anus. The rectum mucosa was then closed first after first freshening up the rectal mucosa and dissecting it completely away from the vagina. The appendix was clearly identified, using a 3-0 PDS suture in a running fashion, the rectal mucosa was then closed all the way down to the anus. Imbricating sutures of 2-0 Vicryl were used to do for the pararectal tissue to placed on top of the rectal closure. The anal sphincter was then reapproximated, using 2-0 Vicryl sutures. Approximately 6 sutures were placed to reapproximate the rectal sphincter in a gdwwnf-[id number] fashion. The perineal body was then rebuilt using 2-0 Vicryl sutures to rebuild the perineal body. The vaginal mucosa was then closed using a running 2-0 chromic down to the hymenal ring. A 4-0 Vicryl was then used to reapproximate the perineal skin and a subcuticular closure. The remainder of the vaginal mucosa was then closed using a running 3-0 chromic. The Fowler catheter had been removed. In and out catheter was performed. She was taken to the recovery room in stable condition. EBL was about 100 cc. cc: Julia Rodas M.D., MATERIALS ANALYST, [facility] Job ID: [id number] Yemi Ramirez MD DOD:05/16/2021 09:56 A /star DOT:05/16/2021 10:22 A Job Number: [id number] Document Number: [id number] cc: Yemi Ramirez MD [address] [facility] [id number] Normal [facility] POCT GlucoseOrdered By: Michael Ramirez on 05-16-2021 Glucose [Mass/Vol] 100 mg/dL 70 - 100 mg/dL [facility] Work Phone: Comment on above: Test performed by gl ucose meter. Results may be 10%-15% lower than serum/plasma values. (CLIA ID [id number]) Test Performed by [facility], [facility] [place] [address] [facility] Work Phone: [facility] Work Phone: Surgical Pathologyon 021 Surgical Pathology [id number] [facility] PATHOLOGY AND LABORATORY MEDICINE [address] [place] [id number] FINAL SURGICAL PATHOLOGY REPORT ___ NAME: LEELEE ZAMORA : 1995 26 Y F BILLING NO.: [id number] LOCATION: [place] [address] 01 PROCEDURE 05/16/2021 DATE: SURGEON: YEMI RAMIREZ MD RECEIVED 05/16/2021 DATE: ATTENDING: YEMI RAMIREZ MD REPORT DATE: 05/17/2021 COPIES TO: ___ DIAGNOSIS: BIOPSY, VAGINAL MUCOSA WITH EPISIOTOMY BREAKDOWN, RESECTION: - ACUTE INFLAMMATION WITH MARKED GRANULATION TISSUE, FOCAL NECROSIS, AND FIBRINOUS EXUDATE. - / Signature> ROSHAN PEÑA ___ CLINICAL INFORMATION: Episiotomy breakdown, YARELI fistula SPECIMEN: VAGINAL MUCOSA ___ GROSS DESCRIPTION: Received in formalin labeled vaginal mucosa are multiple fragments of pink to red soft tissue, the largest measuring 1 x 0.8 x 0.4 cm and is bisected and submitted as A1. The remaining tissue fragments aggregate to 1 x 1 x 0.4 cm and submitted as A2. [facility] Disclaimer: The following statement applies to all immunohistochemistry, in situ hybridization, molecular studies, and immunofluorescence testing. The use of one or more reagents in the above tests is regulated as an analyte specific reagent (ASR). These tests were developed and their performance characteristics determined by the clinical laboratories of [facility]. They have not been cleared by the US Food and Drug Administration (FDA). The FDA has determined that such clearance or approval is not necessary. All the above immunostains were performed on paraffin embedded tissue. Appropriate positive and negative controls (where applicable) were run in parallel with the patient's specimen; these controls showed expected staining pattern, with acceptable intensity of staining. Immunohistochemical assays have not been validated on decalcified tissues. Results should be interpreted with caution given the raised possibility of false negativity on decalcified specimens. Professional Performing Location: [place] [address]. DEPARTMENT OF PATHOLOGY AND LABORATORY MEDICINE [place], [place] [address] [email or web address] Normal [facility] XR Elbow - right AP and Late ral and obliqueon 12-29-2020 IMPRESSION: No acute abnormality. Production Leader: PK Transcribe Date/Time: Dec 29 2020 9:41A Dictated by : JULIA VILLALOBOS MD This examination was interpreted and the report reviewed and electronically signed by: JULIA VILLALOBOS MD on Dec 29 2020 9:42AM EST DIVISION OF RADIOLOGY * * *Final Report* * * DATE OF EXAM: Dec 29 2020 9:37AM WOX 5325 - XR ELBOW 3V AP/LAT/OTHER RT / PROCEDURE REASON: multiple diagnoses * * * * Physician Interpretation * * * * PROCEDURE: Right elbow INDICATION: Elbow injury, right, initial encounter Right elbow pain .Pt. states she hit lateral Rt elbow on her night stand 1 day ago. Pain lateral Rt elbow. TECHNIQUE: XR ELBOW 3V AP/LAT/OTHER RT COMPARISON: None FINDINGS: No acute fracture or dislocation. Joint spaces are maintained. No evidence for joint effusion. Soft tissues are unremarkable. DIVISION OF RADIOLOGY Provider, Kaylene Darden - 12/29/2020 * * *Final Report* * * DATE OF EXAM: Dec 29 2020 9:37AM WOX 5325 - XR ELBOW 3V AP/LAT/OTHER RT / PROCEDURE REASON: multiple diagnoses * * * * Physician Interpretation * * * * PROCEDURE: Right elbow INDICATION: Elbow injury, right, initial encounter Right elbow pain .Pt. states she hit lateral Rt elbow on her night stand 1 day ago. Pain lateral Rt elbow. TECHNIQUE: XR ELBOW 3V AP/LAT/OTHER RT COMPARISON: None FINDINGS: No acute fracture or dislocation. Joint spaces are maintained. No evidence for joint effusion. Soft tissues are unremarkable. IMPRESSION IMPRESSION: No acute abnormality. Production Leader[facility] Transcribe Date/Time: Dec 29 2020 9:41A Dictated by : JULIA VILLALOBOS MD This examination was interpreted and the report reviewed and electronically signed by: JULIA VILLALOBOS MD on Dec 29 2020 9:42AM EST [facility] Radiology Study observation (narrative) [facility] XR Elbow - right AP and Late ral and obliqueOrdered By: Ccf Provider on 12-29-2020 [facility] Office Visit: S/P Neoplasm r emoval 01/30/1702-10-2017 Dietary management education, guidance, and counseling (procedure) yes Invalid Interpretation Code [facility] Work Phone: Documentation of current medications (procedure) Done Invalid Interpretation Code [facility] Work Phone: Fall risk assessment No Invalid Interpretation Code [facility] Work Phone: Tobacco smoking status NHIS Never Invalid Interpretation Code [facility] Work Phone: Tobacco use HS Never smoker Invalid Interpretation Code [facility] Work Phone: Lab Report: Dea 06-27-2012 throat culture ORGANISM 1: GROUP C BETA STREPTOCOCCUS Invalid Interpretation Code [facility] Work Phone: OCT OPTIC NERVE CIRRUS OU (B OTH EYES) [facility] Vital Signs Date Time Vital Sign Value Performing Clinician Facility 06-09-2025 10:37-0400 Body mass index (BMI) [Ratio] 47.02 kg/m2 Krislyn Aberegg PA Work Phone: [facility] 06-09-2025 10:37-0400 Body temperature 97.9 [degF] Krislyn Aberegg PA Work Phone: [facility] 06-09-2025 10:37-0400 Body weight 116.6 kg Krislyn Aberegg PA Work Phone: [facility] 06-09-2025 10:37-0400 Diastolic blood pressure 72 mm[Hg] Krislyn Aberegg PA Work Phone: [facility] 06-09-2025 10:37-0400 Heart rate 90 /min Krislyn Aberegg PA Work Phone: [facility] 06-09-2025 10:37-0400 Respiratory rate 16 /min Krislyn Aberegg PA Work Phone: [facility] 06-09-2025 10:37-0400 SaO2% (BldA) [Mass fraction] 99 % Krislyn Aberegg PA Work Phone: [facility] 06-09-2025 10:37-0400 Systolic blood pressure 128 mm[Hg] Krislyn Aberegg PA Work Phone: [facility] 05-08-2025 15:51-0400 Body height 157.5 cm Marietta Lugo MD Work Phone: [facility] 05-08-2025 15:51-0400 Body mass index (BMI) [Ratio] 47.92 kg/m2 Marietta Lugo MD Work Phone: [facility] 05-08-2025 15:51-0400 Body weight 118.84 kg Marietta Lugo MD Work Phone: [facility] 05-08-2025 15:51-0400 Diastolic blood pressure 84 mm[Hg] Marietta Lugo MD Work Phone: [facility] 05-08-2025 15:51-0400 Systolic blood pressure 126 mm[Hg] Marietta Lugo MD Work Phone: [facility] 04-05-2025 07:57-0400 Body mass index (BMI) [Ratio] 48.47 kg/m2 Christofer Ayala MD Work Phone: [facility] 04-05-2025 07:57-0400 Body weight 120.2 kg Christofer Ayala MD Work Phone: [facility] 04-05-2025 07:57-0400 Diastolic blood pressure 74 mm[Hg] Christofer Ayala MD Work Phone: [facility] 04-05-2025 07:57-0400 Systolic blood pressure 118 mm[Hg] Christofer Ayala MD Work Phone: [facility] 03-28-2025 14:32-0400 Body mass index (BMI) [Ratio] 50.08 kg/m2 Tahmina Dumont MD Work Phone: [facility] 03-28-2025 14:32-0400 Body weight 124.19 kg Tahmina Dumont MD Work Phone: [facility] 03-28-2025 14:32-0400 Diastolic blood pressure 80 mm[Hg] Tahmian Dumont MD Work Phone: [facility] 03-28-2025 14:32-0400 Systolic blood pressure 120 mm[Hg] Tahmina Dumont MD Work Phone: [facility] 03-21-2025 12:36-0400 Body mass index (BMI) [Ratio] 50.37 kg/m2 Tahmina Dumont MD Work Phone: [facility] 03-21-2025 12:36-0400 Body weight 124.92 kg Tahmina Dumont MD Work Phone: [facility] 03-21-2025 12:36-0400 Diastolic blood pressure 81 mm[Hg] Tahmina Dumont MD Work Phone: [facility] 03-21-2025 12:36-0400 Systolic blood pressure 127 mm[Hg] Tahmina Dumont MD Work Phone: [facility] 03-14-2025 13:50-0400 Body mass index (BMI) [Ratio] 50.92 kg/m2 Tahmina Dumont MD Work Phone: [facility] 03-14-2025 13:50-0400 Body weight 126.28 kg Tahmina Dumont MD Work Phone: [facility] 03-14-2025 13:50-0400 Diastolic blood pressure 77 mm[Hg] Tahmina Dumont MD Work Phone: [facility] 03-14-2025 13:50-0400 Systolic blood pressure 122 mm[Hg] Tahmina Dumont MD Work Phone: [facility] 03-07-2025 14:18-0400 Body mass index (BMI) [Ratio] 49.93 kg/m2 Marietta Lugo MD Work Phone: [facility] 03-07-2025 14:18-0400 Body weight 123.83 kg Marietta Lugo MD Work Phone: [facility] 03-07-2025 14:18-0400 Diastolic blood pressure 80 mm[Hg] Marietta Lugo MD Work Phone: [facility] 03-07-2025 14:18-0400 Systolic blood pressure 126 mm[Hg] Marietta Lugo MD Work Phone: [facility] 02-21-2025 13:34-0400 Body mass index (BMI) [Ratio] 49.64 kg/m2 [facility] 02-21-2025 13:34-0400 Body weight 123.11 kg [facility] 02-21-2025 13:34-0400 Diastolic blood pressure 60 mm[Hg] [facility] 02-21-2025 13:34-0400 Systolic blood pressure 124 mm[Hg] [facility] 02-16-2025 11:08-0400 Body mass index (BMI) [Ratio] 48.47 kg/m2 Topher Schuler MD Work Phone: [facility] 02-16-2025 11:08-0400 Body weight 120.2 kg Topher Schuler MD Work Phone: [facility] 02-16-2025 11:08-0400 Diastolic blood pressure 80 mm[Hg] Topher Schuler MD Work Phone: [facility] 02-16-2025 11:08-0400 Systolic blood pressure 126 mm[Hg] Topher Schuler MD Work Phone: [facility] 02-15-2025 10:23-0400 Body mass index (BMI) [Ratio] 49.2 kg/m2 Topher Schuler MD Work Phone: [facility] 02-15-2025 10:23-0400 Body weight 122.02 kg Topher Schuler MD Work Phone: [facility] 02-15-2025 10:23-0400 Diastolic blood pressure 60 mm[Hg] Topher Schuler MD Work Phone: [facility] 02-15-2025 10:23-0400 Systolic blood pressure 114 mm[Hg] Topher Schuler MD Work Phone: [facility] 02-06-2025 13:47-0400 Body mass index (BMI) [Ratio] 49.02 kg/m2 Britney Griffin MD Work Phone: [facility] 02-06-2025 13:47-0400 Body weight 121.56 kg Britney Griffin MD Work Phone: [facility] 02-06-2025 13:47-0400 Diastolic blood pressure 76 mm[Hg] Britney Griffin MD Work Phone: [facility] 02-06-2025 13:47-0400 Systolic blood pressure 124 mm[Hg] Britney Griffin MD Work Phone: [facility] 01-20-2025 11:37-0400 Body mass index (BMI) [Ratio] 48.29 kg/m2 Marietta Lugo MD Work Phone: [facility] 01-20-2025 11:37-0400 Body weight 119.75 kg Marietta Lugo MD Work Phone: [facility] 01-20-2025 11:37-0400 Diastolic blood pressure 60 mm[Hg] Marietta Lugo MD Work Phone: [facility] 01-20-2025 11:37-0400 Systolic blood pressure 120 mm[Hg] Marietta Lugo MD Work Phone: [facility] 01-10-2025 11:21-0400 Body mass index (BMI) [Ratio] 47.92 kg/m2 Christofer Ayala MD Work Phone: [facility] 01-10-2025 11:21-0400 Body weight 118.84 kg Christofer Ayala MD Work Phone: [facility] 01-10-2025 11:21-0400 Diastolic blood pressure 78 mm[Hg] Christofer Ayala MD Work Phone: [facility] 01-10-2025 11:21-0400 Systolic blood pressure 124 mm[Hg] Christofer Ayala MD Work Phone: [facility] 01-09-2025 12:58-0400 Body height 157.[address] Alfredo Barroso MD Work Phone: [facility] 01-09-2025 12:58-0400 Body mass index (BMI) [Ratio] 48.1 kg/m2 Dr. Alfredo Barroso MD Work Phone: 2(216)222-609104 [place] [address] 01-09-2025 12:58-0400 Body weight 119.[address] Alfredo Barroso MD Work Phone: 7(365)765-267304 [place] [address] 01-09-2025 12:36-0400 Diastolic blood pressure 56 mm[Hg] Dr. Alfredo Barroso MD Work Phone: 8(461)914-443204 [place] [address] 01-09-2025 12:36-0400 Heart rate 75 /min Dr. Alfredo Barroso MD Work Phone: 8(332)603-920404 [place] [address] 01-09-2025 12:36-0400 Systolic blood pressure 119 mm[Hg] Dr. Alfredo Barroso MD Work Phone: 8(328)106-090504 [place] [address] 01-09-2025 12:34-0400 Body temperature 98.5 [degF] Dr. Alfredo Barroso MD Work Phone: 4(384)320-158004 [place] [address] 01-09-2025 12:34-0400 Respiratory rate 16 /min Dr. Alfredo Barroso MD Work Phone: 9(729)107-339304 [place] [address] 01-05-2025 13:07-0400 Heart rate 74 /min Dr. Alfredo Barroso MD Work Phone: 5(831)248-973804 [place] [address] 01-05-2025 13:07-0400 SaO2% (BldA) [Mass fraction] 98 % Dr. Alfredo Barroso MD Work Phone: 0(949)865-563904 [place] [address] 01-05-2025 10:23-0400 Body height 157.[address] Alfredo Barroso MD Work Phone: 5(559)627-974204 [place] [address] 01-05-2025 10:23-0400 Body mass index (BMI) [Ratio] 48.1 kg/m2 Dr. Alfredo Barroso MD Work Phone: 1(367)695-664504 [place] [address] 01-05-2025 10:23-0400 Body weight 119.[address] Alfredo Barroso MD Work Phone: [facility] 01-05-2025 10:17-0400 Body temperature 98.7 [degF] Dr. Alfredo Barroso MD Work Phone: [facility] 01-05-2025 10:17-0400 Diastolic blood pressure 79 mm[Hg] Dr. Alfredo Barroso MD Work Phone: [facility] 01-05-2025 10:17-0400 Respiratory rate 16 /min Dr. Alfredo Barroso MD Work Phone: [facility] 01-05-2025 10:17-0400 Systolic blood pressure 141 mm[Hg] Dr. Alfredo Barroso MD Work Phone: [facility] 12-15-2024 11:22-0500 Body mass index (BMI) [Ratio] 46.82 kg/m2 Marietta Lugo MD Work Phone: [facility] 12-15-2024 11:22-0500 Body weight 116.12 kg Marietta Lugo MD Work Phone: [facility] 12-15-2024 11:22-0500 Diastolic blood pressure 76 mm[Hg] Marietta Lugo MD Work Phone: [facility] 12-15-2024 11:22-0500 Systolic blood pressure 110 mm[Hg] Marietta Lugo MD Work Phone: [facility] 11-15-2024 15:11-0500 Body mass index (BMI) [Ratio] 43.75 kg/m2 Tahmina Dumont MD Work Phone: [facility] 11-15-2024 15:11-0500 Body weight 108.5 kg Tahmina Dumont MD Work Phone: [facility] 11-15-2024 15:11-0500 Diastolic blood pressure 72 mm[Hg] Tahmina Dumont MD Work Phone: [facility] 11-15-2024 15:11-0500 Systolic blood pressure 118 mm[Hg] Tahmina Dumont MD Work Phone: [facility] 10-30-2024 06:06-0500 Body temperature 98 [degF] Dr. Alfredo Barroso MD Work Phone: 3(320)261-977704 [place] [address] 10-30-2024 06:06-0500 Diastolic blood pressure 66 mm[Hg] Dr. Alfredo Barroso MD Work Phone: 9(466)821-849704 [place] [address] 10-30-2024 06:06-0500 Heart rate 88 /min Dr. Alfredo Barroso MD Work Phone: 2(669)127-892404 [place] [address] 10-30-2024 06:06-0500 Respiratory rate 16 /min Dr. Alfredo Barroso MD Work Phone: 4(679)759-112904 [place] [address] 10-30-2024 06:06-0500 SaO2% (BldA) [Mass fraction] 99 % Dr. Alfredo Barroso MD Work Phone: 5(554)394-042104 [place] [address] 10-30-2024 06:06-0500 Systolic blood pressure 112 mm[Hg] Dr. Alfredo Barroso MD Work Phone: 1(200)643-109904 [place] [address] 10-30-2024 04:18-0500 Body mass index (BMI) [Ratio] 44.1 kg/m2 Dr. Alfredo Braroso MD Work Phone: 3(527)478-344804 [place] [address] 10-30-2024 04:18-0500 Body weight [address] Alfredo Barroso MD Work Phone: 3(417)522-785704 [place] [address] 10-25-2024 21:07-0500 Body mass index (BMI) [Ratio] 44.1 kg/m2 Dr. Alfredo Barroso MD Work Phone: 4(540)312-708704 [place] [address] 10-25-2024 21:07-0500 Body temperature 97.8 [degF] Dr. Alfredo Barroso MD Work Phone: 8(424)334-833004 [place] [address] 10-25-2024 21:07-0500 Body weight 109.[address] Alfredo Barroso MD Work Phone: 7(927)494-286404 [place] [address] 10-25-2024 21:07-0500 Diastolic blood pressure 82 mm[Hg] Dr. Alfredo Barroso MD Work Phone: [facility] 10-25-2024 21:07-0500 Heart rate 89 /min Dr. Alfredo Barroso MD Work Phone: [facility] 10-25-2024 21:07-0500 Respiratory rate 18 /min Dr. Alfredo Barroso MD Work Phone: [facility] 10-25-2024 21:07-0500 SaO2% (BldA) [Mass fraction] 99 % Dr. Alfredo Barroso MD Work Phone: [facility] 10-25-2024 21:07-0500 Systolic blood pressure 137 mm[Hg] Dr. Alfredo Barroso MD Work Phone: [facility] 10-20-2024 10:24-0500 Body mass index (BMI) [Ratio] 43.02 kg/m2 Tahmina Dumont MD Work Phone: [facility] 10-20-2024 10:24-0500 Body weight 106.69 kg Tahmina Dumont MD Work Phone: [facility] 10-20-2024 10:24-0500 Diastolic blood pressure 74 mm[Hg] Tahmina Dumont MD Work Phone: [facility] 10-20-2024 10:24-0500 Systolic blood pressure 120 mm[Hg] Tahmina Dumont MD Work Phone: [facility] 10-12-2024 15:01-0500 Body mass index (BMI) [Ratio] 42.98 kg/m2 Nuno Wormald PA-C Work Phone: [facility] 10-12-2024 15:01-0500 Body temperature 98.01 [degF] Nuno Wormald PA-C Work Phone: [facility] 10-12-2024 15:01-0500 Body weight 106.6 kg Nuno Wormald PA-C Work Phone: [facility] 10-12-2024 15:01-0500 Diastolic blood pressure 81 mm[Hg] Nuno Wormald PA-C Work Phone: [facility] 10-12-2024 15:01-0500 Heart rate 83 /min Nuno Wormald PA-C Work Phone: [facility] 10-12-2024 15:01-0500 Respiratory rate 18 /min Nuno Wormald PA-C Work Phone: [facility] 10-12-2024 15:01-0500 SaO2% (BldA) [Mass fraction] 100 % Nuno Wormald PA-C Work Phone: [facility] 10-12-2024 15:01-0500 Systolic blood pressure 117 mm[Hg] Nuno Wormald PA-C Work Phone: [facility] 10-12-2024 08:54-0500 Body mass index (BMI) [Ratio] 41.2 kg/m2 Dr. Alfredo Barroso MD Work Phone: [facility] 10-12-2024 08:54-0500 Body temperature 98.7 [degF] Dr. Alfredo Barroso MD Work Phone: 4(675)720-508013 [place] [address] 10-12-2024 08:54-0500 Body weight 102.[address] Alfredo Barroso MD Work Phone: [facility] 10-12-2024 08:54-0500 Diastolic blood pressure 70 mm[Hg] Dr. Alfredo Barroso MD Work Phone: [facility] 10-12-2024 08:54-0500 Heart rate 84 /min Dr. Alfredo Barroso MD Work Phone: [facility] 10-12-2024 08:54-0500 Respiratory rate 18 /min Dr. Alfredo Barroso MD Work Phone: [facility] 10-12-2024 08:54-0500 SaO2% (BldA) [Mass fraction] 98 % Dr. Alfredo Barroso MD Work Phone: [facility] 10-12-2024 08:54-0500 Systolic blood pressure 123 mm[Hg] Dr. Alfredo Barroso MD Work Phone: 0(145)376-747713 [place] [address] 09-28-2024 14:50-0500 Body mass index (BMI) [Ratio] 41.3 kg/m2 Dr. Alfredo Barroso MD Work Phone: 6(829)976-168313 [place] [address] 09-28-2024 14:50-0500 Body weight 102.[address] Alfredo Barroso MD Work Phone: 2(134)208-380813 [place] [address] 09-28-2024 14:50-0500 Diastolic blood pressure 76 mm[Hg] Dr. Alfredo Barroso MD Work Phone: 7(645)637-727513 [place] [address] 09-28-2024 14:50-0500 Heart rate 82 /min Dr. Alfredo Barroso MD Work Phone: 3(391)467-767104 [place] [address] 09-28-2024 14:50-0500 Respiratory rate 16 /min Dr. Alfredo Barroso MD Work Phone: 3(540)177-945213 [place] [address] 09-28-2024 14:50-0500 Systolic blood pressure 121 mm[Hg] Dr. Alfredo Barroso MD Work Phone: 5(204)869-655413 [place] [address] 09-19-2024 08:48-0500 Body mass index (BMI) [Ratio] 40.97 kg/m2 Stephani Aaron APRN.HOME VIS[employer]OR [employer] Work Phone: [facility] 09-19-2024 08:48-0500 Body weight 101.61 kg Stephani Aaron APRN.HOME VIS[employer]OR [employer] Work Phone: [facility] 09-19-2024 08:48-0500 Diastolic blood pressure 60 mm[Hg] Stephani Haury MOBILITY ENGINEER.HOME [employer]IS[employer]OR [employer] Work Phone: [facility] 09-19-2024 08:48-0500 Systolic blood pressure 110 mm[Hg] Stephani Haury MOBILITY ENGINEER.HOME [employer]IS[employer] Work Phone: [facility] 09-15-2024 12:21-0500 Body mass index (BMI) [Ratio] 41.13 kg/m2 Mauro SAXENA Work Phone: [facility] 09-15-2024 12:21-0500 Body temperature 98.2 [degF] Krislyn Aberegg PA Work Phone: [facility] 09-15-2024 12:21-0500 Body weight 102 kg Krislyn Aberegg PA Work Phone: [facility] 09-15-2024 12:21-0500 Diastolic blood pressure 58 mm[Hg] Krislyn Aberegg PA Work Phone: [facility] 09-15-2024 12:21-0500 Heart rate 87 /min Krislyn Aberegg PA Work Phone: [facility] 09-15-2024 12:21-0500 Respiratory rate 20 /min Krislyn Aberegg PA Work Phone: [facility] 09-15-2024 12:21-0500 SaO2% (BldA) [Mass fraction] 97 % Krislyn Aberegg PA Work Phone: [facility] 09-15-2024 12:21-0500 Systolic blood pressure 101 mm[Hg] Krislyn Aberegg PA Work Phone: [facility] 08-18-2024 08:17-0500 Body height 157.5 cm Jammie Marin MOBILITY ENGINEER.[employer]IS[employer] Work Phone: [facility] 08-18-2024 08:17-0500 Body mass index (BMI) [Ratio] 39.47 kg/m2 Jammie [place] MOBILITY ENGINEER.HOME [employer]IS[employer] Work Phone: [facility] 08-18-2024 08:17-0500 Body weight 97.89 kg Jammie Marin MOBILITY ENGINEER.HOME VIS[employer] Work Phone: [facility] 08-18-2024 08:17-0500 Diastolic blood pressure 64 mm[Hg] Jammie [place] MOBILITY ENGINEER.HOME [employer]IS[employer] Work Phone: [facility] 08-18-2024 08:17-0500 Systolic blood pressure 118 mm[Hg] Jammie Marin MOBILITY ENGINEER.HOME [employer]IS[employer] Work Phone: [facility] 07-25-2024 13:03-0400 Body mass index (BMI) [Ratio] 37.31 kg/m2 Angela Paul MD Work Phone: [facility] 07-25-2024 13:03-0400 Body weight 92.53 kg Angela Paul MD Work Phone: [facility] 07-25-2024 13:03-0400 Diastolic blood pressure 60 mm[Hg] Angela Paul MD Work Phone: [facility] 07-25-2024 13:03-0400 Systolic blood pressure 128 mm[Hg] Angela Paul MD Work Phone: [facility] 07-12-2024 10:54-0400 Body mass index (BMI) [Ratio] 36.94 kg/m2 Angi Santos MD Work Phone: [facility] 07-12-2024 10:54-0400 Body temperature 98.01 [degF] Angi Santos MD Work Phone: [facility] 07-12-2024 10:54-0400 Body weight 91.6 kg Angi Santos MD Work Phone: [facility] 07-12-2024 10:54-0400 Diastolic blood pressure 88 mm[Hg] Angi Santos MD Work Phone: [facility] 07-12-2024 10:54-0400 Heart rate 75 /min Angi Santos MD Work Phone: [facility] 07-12-2024 10:54-0400 Respiratory rate 18 /min Angi Santos MD Work Phone: [facility] 07-12-2024 10:54-0400 SaO2% (BldA) [Mass fraction] 100 % Angi Santos MD Work Phone: [facility] 07-12-2024 10:54-0400 Systolic blood pressure 108 mm[Hg] Angi Santos MD Work Phone: [facility] 06-27-2024 14:12-0400 Body height 157.5 cm Darlin Ling MOBILITY ENGINEER.HOME [employer]IS[employer]OR [employer] Work Phone: [facility] 06-27-2024 14:12-0400 Body mass index (BMI) [Ratio] 36.18 kg/m2 Darlin Ling MOBILITY ENGINEER.HOME VIS[employer] Work Phone: [facility] 06-27-2024 14:12-0400 Body temperature 97.9 [degF] Darlin Ling MOBILITY ENGINEER.HOME VIS[employer]OR [employer] Work Phone: [facility] 06-27-2024 14:12-0400 Body weight 89.72 kg Darlin Ling MOBILITY ENGINEER.HOME VIS[employer]OR [employer] Work Phone: [facility] 06-27-2024 14:12-0400 Diastolic blood pressure 67 mm[Hg] Darlin Ling MOBILITY ENGINEER.HOME VIS[employer]OR [employer] Work Phone: [facility] 06-27-2024 14:12-0400 Heart rate 81 /min Darlin Ling MOBILITY ENGINEER.HOME VIS[employer]OR [employer] Work Phone: [facility] 06-27-2024 14:12-0400 Systolic blood pressure 114 mm[Hg] Darlin Ling MOBILITY ENGINEER.[facility] Work Phone: [facility] 06-25-2024 09:33-0400 Body mass index (BMI) [Ratio] 37.13 kg/m2 Jared Florentino MOBILITY ENGINEER.HOME VIS[employer]OR [employer] Work Phone: [facility] 06-25-2024 09:33-0400 Body temperature 97.3 [degF] Jared Reyes-Ugo MOBILITY ENGINEER.HOME VIS[employer]OR [employer] Work Phone: [facility] 06-25-2024 09:33-0400 Body weight 92.1 kg Jared Florentino MOBILITY ENGINEER.HOME VIS[employer]OR [employer] Work Phone: [facility] 06-25-2024 09:33-0400 Diastolic blood pressure 84 mm[Hg] Jared Praisler-Wood MOBILITY ENGINEER.HOME VIS[employer]OR [employer] Work Phone: [facility] 06-25-2024 09:33-0400 Heart rate 79 /min Jared Praisler-Wood MOBILITY ENGINEER.HOME VIS[employer]OR [employer] Work Phone: [facility] 06-25-2024 09:33-0400 Respiratory rate 16 /min Jared Praisler-Wood MOBILITY ENGINEER.HOME VIS[employer]OR [employer] Work Phone: [facility] 06-25-2024 09:33-0400 SaO2% (BldA) [Mass fraction] 99 % Jared Praisler-Wood MOBILITY ENGINEER.HOME VIS[employer]OR [employer] Work Phone: [facility] 06-25-2024 09:33-0400 Systolic blood pressure 128 mm[Hg] Jared Praisler-Wood MOBILITY ENGINEER.HOME VIS[employer] Work Phone: [facility] 06-06-2024 15:45-0400 Body mass index (BMI) [Ratio] 36.75 kg/m2 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 [employer] Work Phone: [facility] 06-06-2024 15:45-0400 Body weight 91.17 kg 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 [employer] Work Phone: [facility] 06-06-2024 15:45-0400 Diastolic blood pressure 68 mm[Hg] 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 [employer] Work Phone: [facility] 06-06-2024 15:45-0400 Heart rate 79 /min 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 [employer] Work Phone: [facility] 06-06-2024 15:45-0400 Respiratory rate 14 /min 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 [employer] Work Phone: [facility] 06-06-2024 15:45-0400 Systolic blood pressure 101 mm[Hg] 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 [employer] Work Phone: [facility] 05-11-2024 09:33-0400 Body mass index (BMI) [Ratio] 37.25 kg/m2 Sandhya Aguilar MOBILITY ENGINEER.HOME VIS[employer]OR [employer] Work Phone: [facility] 05-11-2024 09:33-0400 Body temperature 97.39 [degF] Sandhya Aguilar MOBILITY ENGINEER.HOME VIS[employer]OR [employer] Work Phone: [facility] 05-11-2024 09:33-0400 Body weight 92.4 kg Sandhya Aguilar MOBILITY ENGINEER.HOME VISITOR [employer] Work Phone: [facility] 05-11-2024 09:33-0400 Diastolic blood pressure 80 mm[Hg] Sandhya Aguilar MOBILITY ENGINEER.HOME VISITOR [employer] Work Phone: [facility] 05-11-2024 09:33-0400 Heart rate 80 /min Sandhya Aguilar MOBILITY ENGINEER.HOME VIS[employer]OR [employer] Work Phone: [facility] 05-11-2024 09:33-0400 Respiratory rate 19 /min Sandhya Aguilar MOBILITY ENGINEER.HOME VIS[employer]OR [employer] Work Phone: [facility] 05-11-2024 09:33-0400 SaO2% (BldA) [Mass fraction] 99 % Sandhya Aguilar MOBILITY ENGINEER.HOME [employer]IS[employer] Work Phone: [facility] 05-11-2024 09:33-0400 Systolic blood pressure 120 mm[Hg] Sandhya Aguilar MOBILITY ENGINEER.HOME VISITOR [employer] Work Phone: [facility] 02-25-2024 13:19-0400 Body mass index (BMI) [Ratio] 38.22 kg/m2 Keri AndreVictor Manuel MOBILITY ENGINEER.HOME VISITOR [employer] Work Phone: [facility] 02-25-2024 13:19-0400 Body weight 94.8 kg Keri AndreVictor Manuel MOBILITY ENGINEER.HOME VISITOR [employer] Work Phone: [facility] 02-25-2024 13:19-0400 Diastolic blood pressure 76 mm[Hg] Keri Victor Manuel MOBILITY ENGINEER.HOME VISITOR [employer] Work Phone: [facility] 02-25-2024 13:19-0400 Heart rate 106 /min Keri AndreVictor Manuel MOBILITY ENGINEER.HOME VISITOR [employer] Work Phone: [facility] 02-25-2024 13:19-0400 Respiratory rate 18 /min Keri Rush MOBILITY ENGINEER.HOME VISITOR [employer] Work Phone: [facility] 02-25-2024 13:19-0400 SaO2% (BldA) [Mass fraction] 98 % Keri Ruhs MOBILITY ENGINEER.HOME VISITOR [employer] Work Phone: [facility] 02-25-2024 13:19-0400 Systolic blood pressure 138 mm[Hg] Keri Rush MOBILITY ENGINEER.HOME VISITOR [employer] Work Phone: [facility] 02-16-2024 15:32-0400 Body height 157.5 cm Fabian Brasher MD Work Phone: [facility] 02-16-2024 15:32-0400 Body mass index (BMI) [Ratio] 38.7 kg/m2 Fabian Brasher MD Work Phone: [facility] 02-16-2024 15:32-0400 Body weight 96 kg Fabian Brasher MD Work Phone: [facility] 02-16-2024 15:32-0400 Diastolic blood pressure 69 mm[Hg] Fabian Brasher MD Work Phone: [facility] 02-16-2024 15:32-0400 Heart rate 94 /min Fabian Brasher MD Work Phone: [facility] 02-16-2024 15:32-0400 Respiratory rate 16 /min Fabian Brasher MD Work Phone: [facility] 02-16-2024 15:32-0400 Systolic blood pressure 131 mm[Hg] Fabian Brasher MD Work Phone: [facility] 02-02-2024 13:53-0400 Body mass index (BMI) [Ratio] 37.89 kg/m2 Maryann Athy PA-C Work Phone: [facility] 02-02-2024 13:53-0400 Body temperature 98.8 [degF] Maryann Athy PA-C Work Phone: [facility] 02-02-2024 13:53-0400 Body weight 94 kg Maryann Athy PA-C Work Phone: [facility] 02-02-2024 13:53-0400 Diastolic blood pressure 70 mm[Hg] Maryann Athy PA-C Work Phone: [facility] 02-02-2024 13:53-0400 Heart rate 104 /min Maryann Athy PA-C Work Phone: [facility] 02-02-2024 13:53-0400 Respiratory rate 18 /min Maryann Athy PA-C Work Phone: [facility] 02-02-2024 13:53-0400 SaO2% (BldA) [Mass fraction] 99 % Maryann Athy PA-C Work Phone: [facility] 02-02-2024 13:53-0400 Systolic blood pressure 122 mm[Hg] Maryann Athy PA-C Work Phone: [facility] 01-27-2024 11:44-0400 Body temperature 98.91 [degF] Michael Alonzo MOBILITY ENGINEER.HOME VISITOR [employer] Work Phone: [facility] 01-27-2024 11:44-0400 Body weight 95 kg Michael Alonzo MOBILITY ENGINEER.HOME VISITOR [employer] Work Phone: [facility] 01-27-2024 11:44-0400 Diastolic blood pressure 82 mm[Hg] Michael Alonzo MOBILITY ENGINEER.HOME VISITOR [employer] Work Phone: [facility] 01-27-2024 11:44-0400 Heart rate 91 /min Michael Alonzo MOBILITY ENGINEER.HOME VISITOR [employer] Work Phone: [facility] 01-27-2024 11:44-0400 Respiratory rate 18 /min Michael Alonzo MOBILITY ENGINEER.HOME VISITOR [employer] Work Phone: [facility] 01-27-2024 11:44-0400 SaO2% (BldA) [Mass fraction] 97 % Michael Alonzo MOBILITY ENGINEER.HOME VISITOR [employer] Work Phone: [facility] 01-27-2024 11:44-0400 Systolic blood pressure 128 mm[Hg] Michael Alonzo MOBILITY ENGINEER.HOME VISITOR [employer] Work Phone: [facility] 12-09-2023 12:37-0500 Body temperature 98.71 [degF] Krislyn Aberegg PA Work Phone: [facility] 12-09-2023 12:37-0500 Body weight 96.8 kg Krislyn Aberegg PA Work Phone: [facility] 12-09-2023 12:37-0500 Diastolic blood pressure 82 mm[Hg] Krislyn Aberegg PA Work Phone: [facility] 12-09-2023 12:37-0500 Heart rate 98 /min Krislyn Aberegg PA Work Phone: [facility] 12-09-2023 12:37-0500 Respiratory rate 18 /min Krislyn Aberegg PA Work Phone: [facility] 12-09-2023 12:37-0500 SaO2% (BldA) [Mass fraction] 99 % Krislyn Aberegg PA Work Phone: [facility] 12-09-2023 12:37-0500 Systolic blood pressure 128 mm[Hg] Krislyn Aberegg PA Work Phone: [facility] 11-24-2023 14:45-0500 Body temperature 97.2 [degF] [facility] 11-24-2023 14:45-0500 Diastolic blood pressure 74 mm[Hg] [facility] 11-24-2023 14:45-0500 Heart rate 80 /min [facility] 11-24-2023 14:45-0500 Respiratory rate 18 /min [facility] 11-24-2023 14:45-0500 SaO2% (BldA) [Mass fraction] 100 % [facility] 11-24-2023 14:45-0500 Systolic blood pressure 118 mm[Hg] [facility] 11-24-2023 11:03-0500 Body height 157.48 cm [facility] 11-24-2023 11:03-0500 Body mass index (BMI) [Ratio] 37.8 kg/m2 [facility] 11-24-2023 11:03-0500 Body weight 93.89 kg [facility] 11-23-2023 18:45-0500 Body temperature 98.8 [degF] Alecia Dumont APRN.HOME VISITOR [employer] Work Phone: [facility] 11-23-2023 18:45-0500 Body weight 94.35 kg Alecia Dumont APRN.HOME VISITOR [employer] Work Phone: [facility] 11-23-2023 18:45-0500 Diastolic blood pressure 82 mm[Hg] Alecia Dumont APRN.HOME VISITOR [employer] Work Phone: [facility] 11-23-2023 18:45-0500 Heart rate 88 /min Alecia Dumont APRN.HOME VISITOR [employer] Work Phone: [facility] 11-23-2023 18:45-0500 Respiratory rate 19 /min Alecia Dumont APRN.HOME VISITOR [employer] Work Phone: [facility] 11-23-2023 18:45-0500 SaO2% (BldA) [Mass fraction] 99 % Alecia Dumont APRN.HOME VISITOR [employer] Work Phone: [facility] 11-23-2023 18:45-0500 Systolic blood pressure 122 mm[Hg] Alecai Julia VYAS.HOME VISITOR [employer] Work Phone: [facility] 11-18-2023 18:56-0500 Diastolic blood pressure 86 mm[Hg] [facility] 11-18-2023 18:56-0500 Heart rate 75 /min [facility] 11-18-2023 18:56-0500 Respiratory rate 12 /min [facility] 11-18-2023 18:56-0500 SaO2% (BldA) [Mass fraction] 99 % [facility] 11-18-2023 18:56-0500 Systolic blood pressure 140 mm[Hg] [facility] 11-18-2023 17:11-0500 Body height 157.48 cm [facility] 11-18-2023 17:11-0500 Body mass index (BMI) [Ratio] 39.2 kg/m2 [facility] 11-18-2023 17:11-0500 Body temperature 97.8 [degF] [facility] 11-18-2023 17:11-0500 Body weight 97.15 kg [facility] 11-18-2023 11:49-0500 Body height 157.5 cm Fabian Brasher MD Work Phone: [facility] 11-18-2023 11:49-0500 Body weight 95.94 kg Fabian Brasher MD Work Phone: [facility] 11-18-2023 11:49-0500 Diastolic blood pressure 71 mm[Hg] Fabian Brasher MD Work Phone: [facility] 11-18-2023 11:49-0500 Heart rate 83 /min Fabian Brasher MD Work Phone: [facility] 11-18-2023 11:49-0500 Systolic blood pressure 131 mm[Hg] Fabian Brasher MD Work Phone: [facility] 09-17-2023 15:25-0500 Body weight 96.16 kg 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 [employer] Work Phone: [facility] 09-17-2023 15:25-0500 Diastolic blood pressure 70 mm[Hg] 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 [employer] Work Phone: [facility] 09-17-2023 15:25-0500 Heart rate 104 /min 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 [employer] Work Phone: [facility] 09-17-2023 15:25-0500 Respiratory rate 14 /min 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 [employer] Work Phone: [facility] 09-17-2023 15:25-0500 Systolic blood pressure 126 mm[Hg] 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 [employer] Work Phone: [facility] 08-20-2023 19:13-0500 Body height 157.[address] Alfredo Barroso Work Phone: [facility] 08-20-2023 19:13-0500 Body mass index (BMI) [Ratio] 39.3 kg/m2 Dr. Alfredo Barroso Work Phone: 4(570)333-460813 [place] [address] 08-20-2023 19:13-0500 Body temperature 96 [degF] Dr. Alfredo Barroso Work Phone: 1(110)827-970504 [place] [address] 08-20-2023 19:13-0500 Body weight 97.[address] Alfredo Barroso Work Phone: 2(630)239-735904 [place] [address] 08-20-2023 19:13-0500 Diastolic blood pressure 86 mm[Hg] Dr. Alfredo Barroso Work Phone: 1(592)750-299104 [place] [address] 08-20-2023 19:13-0500 Heart rate 94 /min Dr. Alfredo Barroso Work Phone: 7(647)262-343804 [place] [address] 08-20-2023 19:13-0500 Respiratory rate 18 /min Dr. Alfredo Barroso Work Phone: 6(332)406-205404 [place] [address] 08-20-2023 19:13-0500 SaO2% (BldA) [Mass fraction] 100 % Dr. Alfredo Barroso Work Phone: 8(702)269-309504 [place] [address] 08-20-2023 19:13-0500 Systolic blood pressure 149 mm[Hg] Dr. Alfredo Barroso Work Phone: 3(742)838-638104 [place] [address] 08-17-2023 14:06-0500 Body weight 93.44 kg Fabian Brasher MD Work Phone: [facility] 07-22-2023 19:48-0400 Body height 157.[address] Alfredo Barroso Work Phone: 3(868)379-009913 [place] [address] 07-22-2023 19:48-0400 Body mass index (BMI) [Ratio] 38.2 kg/m2 Dr. Alfredo Barroso Work Phone: 3(535)401-260113 [place] [address] 07-22-2023 19:48-0400 Body temperature 97.8 [degF] Dr. Alfredo Barroso Work Phone: 6(859)332-368713 [place] [address] 07-22-2023 19:48-0400 Body weight 94.[address] Alfredo Barroso Work Phone: [facility] 07-22-2023 19:48-0400 Diastolic blood pressure 90 mm[Hg] Dr. Alfredo Barroso Work Phone: [facility] 07-22-2023 19:48-0400 Heart rate 98 /min Dr. Alfredo Barroso Work Phone: [facility] 07-22-2023 19:48-0400 Respiratory rate 18 /min Dr. Alfredo Barroso Work Phone: [facility] 07-22-2023 19:48-0400 SaO2% (BldA) [Mass fraction] 98 % Dr. Alfredo Barroso Work Phone: [facility] 07-22-2023 19:48-0400 Systolic blood pressure 151 mm[Hg] Dr. Alfredo Barroso Work Phone: [facility] 06-23-2023 13:45-0400 Body weight 92.99 kg 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 [employer] Work Phone: [facility] 06-23-2023 13:45-0400 Diastolic blood pressure 76 mm[Hg] 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 [employer] Work Phone: [facility] 06-23-2023 13:45-0400 Heart rate 88 /min 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 [employer] Work Phone: [facility] 06-23-2023 13:45-0400 Respiratory rate 16 /min 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 [employer] Work Phone: [facility] 06-23-2023 13:45-0400 Systolic blood pressure 116 mm[Hg] 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 [employer] Work Phone: [facility] 06-09-2023 13:15-0400 Body height 160 cm Pj James MD Work Phone: [facility] 06-09-2023 13:15-0400 Body weight 91.4 kg Pj James MD Work Phone: [facility] 06-09-2023 13:15-0400 Diastolic blood pressure 78 mm[Hg] Pj James MD Work Phone: [facility] 06-09-2023 13:15-0400 Heart rate 90 /min Pj James MD Work Phone: [facility] 06-09-2023 13:15-0400 SaO2% (BldA) [Mass fraction] 100 % Pj James MD Work Phone: [facility] 06-09-2023 13:15-0400 Systolic blood pressure 118 mm[Hg] jP James MD Work Phone: [facility] 06-08-2023 14:23-0400 Body weight 88 kg Fabian Brasher MD Work Phone: [facility] 05-19-2023 15:51-0400 Body temperature 98.1 [degF] Dr. Alfredo Barroso Work Phone: [facility] 05-19-2023 15:51-0400 Diastolic blood pressure 70 mm[Hg] Dr. Alfredo Barroso Work Phone: [facility] 05-19-2023 15:51-0400 Heart rate 66 /min Dr. Alfredo Barroso Work Phone: [facility] 05-19-2023 15:51-0400 Respiratory rate 18 /min Dr. Alfredo Barroso Work Phone: [facility] 05-19-2023 15:51-0400 SaO2% (BldA) [Mass fraction] 97 % Dr. Alfredo Barroso Work Phone: [facility] 05-19-2023 15:51-0400 Systolic blood pressure 118 mm[Hg] Dr. Alfredo Barroso Work Phone: [facility] 05-18-2023 11:09-0400 Body mass index (BMI) [Ratio] 28.9 kg/m2 Dr. Alfredo Barroso Work Phone: [facility] 05-18-2023 11:09-0400 Body weight 86.[address] Alfredo Barroso Work Phone: 2(238)285-291613 [place] [address] 05-18-2023 10:48-0400 Body temperature 97.1 [degF] Dr. Alfredo Barroso Work Phone: 0(490)383-079913 [place] [address] 05-18-2023 10:48-0400 Diastolic blood pressure 79 mm[Hg] Dr. Alfredo Barroso Work Phone: 1(725)763-769713 [place] [address] 05-18-2023 10:48-0400 Heart rate 80 /min Dr. Alfredo Barroso Work Phone: 7(174)557-374704 [place] [address] 05-18-2023 10:48-0400 Respiratory rate 14 /min Dr. Alfredo Barroso Work Phone: 8(708)560-612804 [place] [address] 05-18-2023 10:48-0400 SaO2% (BldA) [Mass fraction] 100 % Dr. Alfredo Barroso Work Phone: 3(877)417-773813 [place] [address] 05-18-2023 10:48-0400 Systolic blood pressure 148 mm[Hg] Dr. Alfredo Barroso Work Phone: [facility] 05-18-2023 07:07-0400 Body height 172.[address] Alfredo Barroso Work Phone: 1(741)229-485913 [place] [address] 05-18-2023 07:07-0400 Body mass index (BMI) [Ratio] 28.4 kg/m2 Dr. Alfredo Barroso Work Phone: [facility] 05-18-2023 07:07-0400 Body weight 84.[address] Alfredo Barroso Work Phone: [facility] 05-15-2023 15:55-0400 Body temperature 98.49 [degF] Melissa Daniel APRN.CNP Work Phone: [facility] 05-15-2023 15:55-0400 Body weight 87.09 kg Melissa Fredy MOBILITY ENGINEER.HOME VISITOR [employer] Work Phone: [facility] 05-15-2023 15:55-0400 Diastolic blood pressure 84 mm[Hg] Melissa Fredy MOBILITY ENGINEER.HOME VISITOR [employer] Work Phone: [facility] 05-15-2023 15:55-0400 Heart rate 87 /min Melissa Fredy MOBILITY ENGINEER.HOME VISITOR [employer] Work Phone: [facility] 05-15-2023 15:55-0400 Respiratory rate 18 /min Melissa Fredy MOBILITY ENGINEER.HOME VISITOR [employer] Work Phone: [facility] 05-15-2023 15:55-0400 SaO2% (BldA) [Mass fraction] 99 % Melissa Fredy MOBILITY ENGINEER.HOME VISITOR [employer] Work Phone: [facility] 05-15-2023 15:55-0400 Systolic blood pressure 122 mm[Hg] Melissa Fredy MOBILITY ENGINEER.HOME VISITOR [employer] Work Phone: [facility] 05-14-2023 11:21-0400 Body temperature 98.49 [degF] Maryann Athy PA-C Work Phone: [facility] 05-14-2023 11:21-0400 Body weight 87 kg Maryann Athy PA-C Work Phone: [facility] 05-14-2023 11:21-0400 Diastolic blood pressure 92 mm[Hg] Maryann Athy PA-C Work Phone: [facility] 05-14-2023 11:21-0400 Heart rate 92 /min Maryann Athy PA-C Work Phone: [facility] 05-14-2023 11:21-0400 Respiratory rate 20 /min Maryann Athy PA-C Work Phone: [facility] 05-14-2023 11:21-0400 SaO2% (BldA) [Mass fraction] 98 % Maryann Athy PA-C Work Phone: [facility] 05-14-2023 11:21-0400 Systolic blood pressure 132 mm[Hg] Maryann Athy PA-C Work Phone: [facility] 04-30-2023 13:22-0400 Body temperature 97.2 [degF] [facility] 04-30-2023 13:22-0400 Diastolic blood pressure 97 mm[Hg] [facility] 04-30-2023 13:22-0400 Heart rate 79 /min [facility] 04-30-2023 13:22-0400 Respiratory rate 16 /min [facility] 04-30-2023 13:22-0400 SaO2% (BldA) [Mass fraction] 97 % [facility] 04-30-2023 [id number]:[id number] Systolic blood pressure 126 mm[Hg] [facility] 04-30-2023 09:0400 Body height 162.56 cm [facility] 04-30-2023 [id number] Body mass index (BMI) [Ratio] 31.7 kg/m2 [facility] 04-30-2023 09:0400 Body weight 83.91 kg [facility] 04-18-2023 15:11-0400 Body temperature 97.9 [degF] Maryann Athy PA-C Work Phone: [facility] 04-18-2023 15:11-0400 Body weight 88.91 kg Maryann Athy PA-C Work Phone: [facility] 04-18-2023 15:11-0400 Diastolic blood pressure 70 mm[Hg] Maryann Athy PA-C Work Phone: [facility] 04-18-2023 15:11-0400 Heart rate 96 /min Maryann Athy PA-C Work Phone: [facility] 04-18-2023 15:11-0400 Respiratory rate 16 /min Maryann Athy PA-C Work Phone: [facility] 04-18-2023 15:11-0400 SaO2% (BldA) [Mass fraction] 99 % Maryann Athy PA-C Work Phone: [facility] 04-18-2023 15:11-0400 Systolic blood pressure 122 mm[Hg] Maryann Matias PA-C Work Phone: [facility] 03-12-2023 11:15-0400 Body weight 92.42 kg Humberto Schultz MD Work Phone: [facility] 03-12-2023 11:15-0400 Diastolic blood pressure 78 mm[Hg] Humberto Schultz MD Work Phone: [facility] 03-12-2023 11:15-0400 Systolic blood pressure 120 mm[Hg] Humberto Schultz MD Work Phone: [facility] 02-12-2023 14:35-0400 Body temperature 98.2 [degF] Roverto Pendlebury MOBILITY ENGINEER.HOME VISITOR [employer] Work Phone: [facility] 02-12-2023 14:35-0400 Body weight 97.07 kg Roverto Pendlenydia MOBILITY ENGINEER.HOME VISITOR [employer] Work Phone: [facility] 02-12-2023 14:35-0400 Diastolic blood pressure 64 mm[Hg] Roverto Pendlebury MOBILITY ENGINEER.HOME VISITOR [employer] Work Phone: [facility] 02-12-2023 14:35-0400 Heart rate 97 /min Roverto Pendlebury MOBILITY ENGINEER.HOME VISITOR [employer] Work Phone: [facility] 02-12-2023 14:35-0400 Respiratory rate 21 /min Roverto Pendlebury MOBILITY ENGINEER.HOME VISITOR [employer] Work Phone: [facility] 02-12-2023 14:35-0400 SaO2% (BldA) [Mass fraction] 95 % Roverto Pendlebury MOBILITY ENGINEER.HOME VISITOR [employer] Work Phone: [facility] 02-12-2023 14:35-0400 Systolic blood pressure 100 mm[Hg] Roverto Pendlenydia MOBILITY ENGINEER.HOME VISITOR [employer] Work Phone: [facility] 12-24-2022 10:30-0400 Body height 160 cm Fabian Brasher MD Work Phone: [facility] 12-24-2022 10:30-0400 Body weight 104.33 kg Fabian Brasher MD Work Phone: [facility] 12-10-2022 12:04-0500 Body temperature 98.6 [degF] Maryann Athy PA-C Work Phone: [facility] 12-10-2022 12:04-0500 Body weight 108.14 kg Maryann Athy PA-C Work Phone: [facility] 12-10-2022 12:04-0500 Diastolic blood pressure 78 mm[Hg] Maryann Athy PA-C Work Phone: [facility] 12-10-2022 12:04-0500 Heart rate 95 /min Maryann Athy PA-C Work Phone: [facility] 12-10-2022 12:04-0500 Respiratory rate 21 /min Maryann Athy PA-C Work Phone: [facility] 12-10-2022 12:04-0500 SaO2% (BldA) [Mass fraction] 100 % Maryann Athy PA-C Work Phone: [facility] 12-10-2022 12:04-0500 Systolic blood pressure 120 mm[Hg] Maryann Athy PA-C Work Phone: [facility] 12-05-2022 09:29-0500 Body height 160 cm Pj James MD Work Phone: [facility] 12-05-2022 09:29-0500 Body weight 109.32 kg Pj James MD Work Phone: [facility] 12-05-2022 09:29-0500 Diastolic blood pressure 80 mm[Hg] Pj James MD Work Phone: [facility] 12-05-2022 09:29-0500 Heart rate 97 /min Pj James MD Work Phone: [facility] 12-05-2022 09:29-0500 SaO2% (BldA) [Mass fraction] 99 % Pj James MD Work Phone: [facility] 12-05-2022 09:29-0500 Systolic blood pressure 121 mm[Hg] Pj James MD Work Phone: [facility] 12-02-2022 13:07-0500 Body height 160 cm Shilpa Winters MD Work Phone: [facility] 12-02-2022 13:07-0500 Body temperature 97 [degF] Shilpa Winters MD Work Phone: [facility] 12-02-2022 13:07-0500 Body weight 110.77 kg Shilpa Winters MD Work Phone: [facility] 12-02-2022 13:07-0500 Diastolic blood pressure 88 mm[Hg] Shilpa Winters MD Work Phone: [facility] 12-02-2022 13:07-0500 Heart rate 85 /min Shilpa Winters MD Work Phone: [facility] 12-02-2022 13:07-0500 SaO2% (BldA) [Mass fraction] 100 % Shilpa Winters MD Work Phone: [facility] 12-02-2022 13:07-0500 Systolic blood pressure 130 mm[Hg] Shilpa Winters MD Work Phone: [facility] 12-01-2022 14:18-0500 Body weight 110.22 kg 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 [employer] Work Phone: [facility] 12-01-2022 14:18-0500 Diastolic blood pressure 72 mm[Hg] 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 [employer] Work Phone: [facility] 12-01-2022 14:18-0500 Heart rate 96 /min 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 [employer] Work Phone: [facility] 12-01-2022 14:18-0500 Respiratory rate 16 /min 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 [employer] Work Phone: [facility] 12-01-2022 14:18-0500 Systolic blood pressure 118 mm[Hg] Cooper Gastelum APRN.HOME VISITOR [employer] Work Phone: [facility] 11-06-2022 13:33-0500 Body weight 113.51 kg Humberto Schultz MD Work Phone: [facility] 11-06-2022 13:33-0500 Diastolic blood pressure 70 mm[Hg] Humberto Schultz MD Work Phone: [facility] 11-06-2022 13:33-0500 Systolic blood pressure 116 mm[Hg] Humberto Schultz MD Work Phone: [facility] 10-29-2022 16:18-0500 Body height 160 cm Fabian Brasher MD Work Phone: [facility] 10-29-2022 16:18-0500 Body weight 115.94 kg Fabian Brasher MD Work Phone: [facility] 10-29-2022 16:18-0500 Diastolic blood pressure 69 mm[Hg] Fabian Brasher MD Work Phone: [facility] 10-29-2022 16:18-0500 Heart rate 86 /min Fabian Brasher MD Work Phone: [facility] 10-29-2022 16:18-0500 Systolic blood pressure 120 mm[Hg] Fabian Brasher MD Work Phone: [facility] 10-01-2022 17:20-0500 Body temperature 97.52 [degF] [facility] 10-01-2022 17:20-0500 Diastolic Blood Pressure Non-Invasive 95 1 [facility] DO [facility] 10-01-2022 17:20-0500 Heart rate 108 /min [facility] 10-01-2022 17:20-0500 Respiratory rate 18 /min [facility] 10-01-2022 17:20-0500 Systolic Blood Pressure Non-Invasive 140 1 [facility] [employer] [facility] 10-01-2022 16:40-0500 Body temperature 97.88 [degF] [facility] [employer] [facility] 10-01-2022 16:40-0500 Diastolic Blood Pressure Non-Invasive 95 1 [facility] [employer] [facility] 10-01-2022 16:40-0500 Heart rate 104 /min [facility] [employer] [facility] 10-01-2022 16:40-0500 Reason For Taking VItal Signs [facility] [employer] [facility] 10-01-2022 16:40-0500 Respiratory rate 18 /min [facility] [employer] [facility] 10-01-2022 16:40-0500 Systolic Blood Pressure Non-Invasive 141 1 [facility] 10-01-2022 16:20-0500 Body temperature 97.34 [degF] [facility] [employer] [facility] 10-01-2022 16:20-0500 Diastolic Blood Pressure Non-Invasive 72 1 [facility] [employer] [facility] 10-01-2022 16:20-0500 Heart rate 116 /min [facility] [employer] [facility] 10-01-2022 16:20-0500 Mean blood pressure 88 mm[Hg] [facility] 10-01-2022 16:20-0500 Respiratory rate 18 /min [facility] 10-01-2022 16:20-0500 Systolic Blood Pressure Non-Invasive 134 1 [facility] [employer] [facility] 10-01-2022 16:00-0500 Heart rate 91 /min [facility] [employer] [facility] 10-01-2022 16:00-0500 Mean blood pressure 89 mm[Hg] [facility] 10-01-2022 15:50-0500 Heart rate 89 /min [facility] 10-01-2022 15:50-0500 Mean blood pressure 99 mm[Hg] [facility] [employer] [facility] 10-01-2022 14:47-0500 Body temperature 97.34 [degF] [facility] 10-01-2022 14:25-0500 Respiratory Rate - Anes 4 br/min [facility] [employer] [facility] 10-01-2022 14:20-0500 Respiratory Rate - Anes 25 br/min [facility] [employer] [facility] 10-01-2022 14:15-0500 Respiratory Rate - Anes 14 br/min [facility] 10-01-2022 14:10-0500 Body temperature 95.7 [degF] [facility] [employer] [facility] 10-01-2022 14:05-0500 Body temperature 95.59 [degF] [facility] 10-01-2022 14:00-0500 Body temperature 95.49 [degF] [facility] 10-01-2022 09:25-0500 Body height 162.6 cm [facility] DO [address] [place] [address] 10-01-2022 09:25-0500 Body weight 115.4 kg [facility] 10-01-2022 09:25-0500 Heart rate 77 /min [facility] [employer] [facility] 09-29-2022 12:15-0500 Body weight 120.2 kg Fabian Brasher MD Work Phone: [facility] 09-24-2022 12:51-0500 Body height 165 cm [facility] 09-24-2022 12:51-0500 Body temperature 97.88 [degF] [facility] 09-24-2022 12:51-0500 Body weight 119.3 kg [facility] 09-24-2022 12:51-0500 Body weight 43.82 kg/m2 [facility] 09-24-2022 12:51-0500 Diastolic Blood Pressure Non-Invasive 76 1 [facility] 09-24-2022 12:51-0500 Heart rate 86 /min [facility] 09-24-2022 12:51-0500 Systolic Blood Pressure Non-Invasive 117 1 [facility] 09-09-2022 14:57-0500 Body weight 122.92 kg Cooper Gastelum APRN.HOME VISITOR [employer] Work Phone: [facility] 09-09-2022 14:57-0500 Diastolic blood pressure 70 mm[Hg] 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 [employer] Work Phone: [facility] 09-09-2022 14:57-0500 Heart rate 72 /min 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 [employer] Work Phone: [facility] 09-09-2022 14:57-0500 Respiratory rate 16 /min 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 [employer] Work Phone: [facility] 09-09-2022 14:57-0500 Systolic blood pressure 112 mm[Hg] 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 [employer] Work Phone: [facility] 08-11-2022 11:16-0400 Body height 162.56 cm Referring Provider Unknown LI-Sejvuzn-Shcyk [place] Work Phone: 08-11-2022 11:16-0400 Body mass index (BMI) [Ratio] 46.35 kg/m2 Referring Provider Unknown ML-Sbtxrum-Aqzty [employer] Work Phone: 08-11-2022 11:16-0400 Body surface area Derived from formula 2.22 m2 Referring Provider Unknown XD-Jppdaaj-Wsglt Nikhil Work Phone: 08-11-2022 11:16-0400 Body temperature 97.2 [degF] Referring Provider Unknown QD-Upqnvjs-Qaguq [employer] Work Phone: 08-11-2022 11:16-0400 Body weight 122.47 kg Referring Provider Unknown JT-Ionxcax-Kffyg [employer] Work Phone: 08-11-2022 11:16-0400 Diastolic blood pressure 78 mm[Hg] Referring Provider Unknown GJ-Njqmquw-Wbmpq Nikhil Work Phone: 08-11-2022 11:16-0400 Heart rate 84 /min Referring Provider Unknown XG-Oxnkmfk-Wzvkf Nikhil Work Phone: 08-11-2022 11:16-0400 Systolic blood pressure 115 mm[Hg] Referring Provider Unknown UI-Usfamcy-Ptxpu Nikhil Work Phone: 07-02-2022 11:55-0400 Body temperature 97.59 [degF] Sandhya Aguilar MOBILITY ENGINEER.HOME VISITOR [employer] Work Phone: [facility] 07-02-2022 11:55-0400 Body weight 123.29 kg Sandhya Aguilar MOBILITY ENGINEER.HOME VISITOR [employer] Work Phone: [facility] 07-02-2022 11:55-0400 Diastolic blood pressure 64 mm[Hg] Sandhya Aguilar MOBILITY ENGINEER.HOME VISITOR [employer] Work Phone: [facility] 07-02-2022 11:55-0400 Heart rate 118 /min Sandhay Aguilar MOBILITY ENGINEER.HOME VISITOR [employer] Work Phone: [facility] 07-02-2022 11:55-0400 Respiratory rate 21 /min Sandhya Aguilar MOBILITY ENGINEER.HOME VISITOR [employer] Work Phone: [facility] 07-02-2022 11:55-0400 SaO2% (BldA) [Mass fraction] 99 % Sandhya Aguilar MOBILITY ENGINEER.HOME VISITOR [employer] Work Phone: [facility] 07-02-2022 11:55-0400 Systolic blood pressure 98 mm[Hg] Sandhya Aguilar MOBILITY ENGINEER.HOME VISITOR [employer] Work Phone: [facility] 06-23-2022 15:06-0400 Body temperature 98.49 [degF] Roverto Pendlebury MOBILITY ENGINEER.HOME VISITOR [employer] Work Phone: [facility] 06-23-2022 15:06-0400 Body weight 123.38 kg Roverto Pendlebury MOBILITY ENGINEER.HOME VISITOR [employer] Work Phone: [facility] 06-23-2022 15:06-0400 Diastolic blood pressure 72 mm[Hg] Roverto Pendlebury MOBILITY ENGINEER.HOME VISITOR [employer] Work Phone: [facility] 06-23-2022 15:06-0400 Heart rate 90 /min Roverto Pendlebury MOBILITY ENGINEER.HOME VISITOR [employer] Work Phone: [facility] 06-23-2022 15:06-0400 Respiratory rate 18 /min Roverto Pendlebury MOBILITY ENGINEER.HOME VISITOR [employer] Work Phone: [facility] 06-23-2022 15:06-0400 SaO2% (BldA) [Mass fraction] 99 % Roverto Pendlebury MOBILITY ENGINEER.HOME VISITOR [employer] Work Phone: [facility] 06-23-2022 15:06-0400 Systolic blood pressure 122 mm[Hg] Roverto Pendlebury MOBILITY ENGINEER.HOME VISITOR [employer] Work Phone: [facility] 06-18-2022 10:28-0400 Body height 163.2 cm Fabian Brasher MD Work Phone: [facility] 06-18-2022 10:28-0400 Body weight 123.06 kg Fabian Brasher MD Work Phone: [facility] 06-18-2022 10:28-0400 Diastolic blood pressure 71 mm[Hg] Fabian Brasher MD Work Phone: [facility] 06-18-2022 10:28-0400 Heart rate 78 /min Fabian Brasher MD Work Phone: [facility] 06-18-2022 10:28-0400 Systolic blood pressure 131 mm[Hg] Fabian Brasher MD Work Phone: [facility] 05-22-2022 08:08-0400 Body weight 122.02 kg Leelee Tobar MOBILITY ENGINEER.HOME VISITOR [employer] Work Phone: [facility] 05-22-2022 08:08-0400 Diastolic blood pressure 68 mm[Hg] Leelee Hectorhof MOBILITY ENGINEER.HOME VISITOR [employer] Work Phone: [facility] 05-22-2022 08:08-0400 Heart rate 83 /min Leelee Hectorhof MOBILITY ENGINEER.HOME VISITOR [employer] Work Phone: [facility] 05-22-2022 08:08-0400 Respiratory rate 16 /min Leelee Paynef MOBILITY ENGINEER.HOME VISITOR [employer] Work Phone: [facility] 05-22-2022 08:08-0400 SaO2% (BldA) [Mass fraction] 98 % Leelee Hectorhof MOBILITY ENGINEER.HOME VISITOR [employer] Work Phone: [facility] 05-22-2022 08:08-0400 Systolic blood pressure 100 mm[Hg] Leelee Hectorhof MOBILITY ENGINEER.HOME VISITOR [employer] Work Phone: [facility] 05-01-2022 14:25-0400 Body height 162.56 cm Referring Provider Unknown OE-Sacnbjg-Vhqxr [employer] Work Phone: 05-01-2022 14:25-0400 Body mass index (BMI) [Ratio] 45.49 kg/m2 Referring Provider Unknown TN-Xsziilr-Tsrnl Nikhil Work Phone: 05-01-2022 14:25-0400 Body surface area Derived from formula 2.2 m2 Referring Provider Unknown IN-Wjiqmrk-Kxqaz Nikhil Work Phone: 05-01-2022 14:25-0400 Body temperature 97 [degF] Referring Provider Unknown EB-Dnickxb-Xzjqe Nikhil Work Phone: 05-01-2022 14:25-0400 Body weight 120.2 kg Referring Provider Unknown NR-Rnysqyu-Npkeq [employer] Work Phone: 05-01-2022 14:25-0400 Diastolic blood pressure 81 mm[Hg] Referring Provider Unknown RB-Zekzwlu-Itxfk Nikhil Work Phone: 05-01-2022 14:25-0400 Heart rate 80 /min Referring Provider Unknown QU-Ndfmbuk-Qczoc Nikhil Work Phone: 05-01-2022 14:25-0400 Systolic blood pressure 115 mm[Hg] Referring Provider Unknown SC-Rzklqjh-Izjmu [employer] Work Phone: 04-24-2022 09:41-0400 Body weight 121.56 kg Leelee Tobar MOBILITY ENGINEER.HOME VISITOR [employer] Work Phone: [facility] 04-24-2022 09:41-0400 Diastolic blood pressure 62 mm[Hg] Leelee Paynef MOBILITY ENGINEER.HOME VISITOR [employer] Work Phone: [facility] 04-24-2022 09:41-0400 Heart rate 87 /min Leelee Tobar MOBILITY ENGINEER.HOME VISITOR [employer] Work Phone: [facility] 04-24-2022 09:41-0400 Respiratory rate 20 /min Leelee Tobar MOBILITY ENGINEER.HOME VISITOR [employer] Work Phone: [facility] 04-24-2022 09:41-0400 SaO2% (BldA) [Mass fraction] 97 % Leelee Tobar MOBILITY ENGINEER.HOME VISITOR [employer] Work Phone: [facility] 04-24-2022 09:41-0400 Systolic blood pressure 118 mm[Hg] Leelee Tobar MOBILITY ENGINEER.HOME VISITOR [employer] Work Phone: [facility] 02-14-2022 14:25-0400 Body temperature 98.6 [degF] DAY VELAZQUEZ MD [facility] 02-14-2022 14:25-0400 Diastolic blood pressure 81 mm[Hg] DAY VELAZQUEZ MD [facility] 02-14-2022 14:25-0400 Heart rate 85 /min DAY VELAZQUEZ MD [facility] 02-14-2022 14:25-0400 Reason For Taking VItal Signs DAY EVLAZQUEZ MD [facility] 02-14-2022 14:25-0400 Respiratory rate 18 /min DAY VELAZQUEZ MD [facility] 02-14-2022 14:25-0400 Systolic blood pressure 116 mm[Hg] DAY VELAZQUEZ MD [facility] 02-14-2022 06:22-0400 Body temperature 98.78 [degF] DAY VELAZQUEZ MD [facility] 02-14-2022 06:22-0400 Diastolic blood pressure 83 mm[Hg] DAY VELAZQUEZ MD [facility] 02-14-2022 06:22-0400 Heart rate 86 /min DAY VELAZQUEZ MD [facility] 02-14-2022 06:22-0400 Respiratory rate 18 /min DAY VELAZQUEZ MD [facility] 02-14-2022 06:22-0400 Systolic blood pressure 124 mm[Hg] DAY VELAZQUEZ MD [facility] 02-13-2022 21:43-0400 Body temperature 98.24 [degF] DAY VELAZQUEZ MD [facility] 02-13-2022 21:43-0400 Diastolic blood pressure 74 mm[Hg] DAY VELAZQUEZ MD [facility] 02-13-2022 21:43-0400 Heart rate 108 /min DAY VELAZQUEZ MD [facility] 02-13-2022 21:43-0400 Reason For Taking VItal Signs DAY VELAZQUEZ MD [facility] 02-13-2022 21:43-0400 Respiratory rate 18 /min DAY VELAZQUEZ MD [facility] 02-13-2022 21:43-0400 Systolic blood pressure 163 mm[Hg] DAY VELAZQUEZ MD [facility] 02-13-2022 17:49-0400 Reason For Taking VItal Signs DAY VELAZQUEZ MD [facility] 02-12-2022 07:39-0400 Mean blood pressure 82 mm[Hg] DAY VELAZQUEZ MD [facility] 02-12-2022 00:10-0400 Mean blood pressure 102 mm[Hg] DAY VELAZQUEZ MD [facility] 02-11-2022 19:51-0400 Mean blood pressure 105 mm[Hg] DAY VELAZQUEZ MD [facility] 02-10-2022 23:56-0400 Body temperature 97.88 [degF] DAY VELAZQUEZ MD [facility] 02-10-2022 23:56-0400 Heart rate 78 /min DAY VELAZQUEZ MD [facility] 02-10-2022 21:01-0400 Body temperature 97.88 [degF] DAY VELAZQUEZ MD [facility] 02-10-2022 21:01-0400 Heart rate 88 /min DAY VELAZQUEZ MD [facility] 02-10-2022 20:53-0400 Body height 162.6 cm DAY VELAZQUEZ MD [facility] 02-10-2022 20:53-0400 Body weight 118.8 kg DAY VELAZQUEZ MD [facility] 02-10-2022 20:53-0400 Body weight 44.93 kg/m2 DAY VELAZQUEZ MD [facility] 02-10-2022 20:09-0400 Body temperature 97.52 [degF] DAY VELAZQUEZ MD [facility] 02-10-2022 20:09-0400 Diastolic Blood Pressure NBP 81 1 DAY VELAZQUEZ MD [facility] 02-10-2022 20:09-0400 Heart rate 103 /min DAY VELAZQUEZ MD [facility] 02-10-2022 20:09-0400 Mean blood pressure 91 mm[Hg] DAY VELAZQUEZ MD [facility] 02-10-2022 20:09-0400 Systolic Blood Pressure NBP 148 1 DAY VELAZQUEZ MD [facility] 02-10-2022 19:54-0400 Diastolic Blood Pressure NBP 80 1 DAY VELAZQUEZ MD [facility] 02-10-2022 19:54-0400 Mean blood pressure 92 mm[Hg] DAY VELAZQUEZ MD [facility] 02-10-2022 19:54-0400 Systolic Blood Pressure NBP 143 1 DAY VELAZQUEZ MD [facility] 02-10-2022 19:33-0400 Diastolic Blood Pressure NBP 59 1 DAY VELAZQUEZ MD [facility] 02-10-2022 19:33-0400 Mean blood pressure 75 mm[Hg] DAY VELAZQUEZ MD [facility] 02-10-2022 19:33-0400 Systolic Blood Pressure NBP 128 1 DAY VELAZQUEZ MD [facility] 02-10-2022 19:15-0400 Body temperature 98.44 [degF] DAY VELAZQUEZ MD [facility] 02-10-2022 19:10-0400 Body temperature 98.38 [degF] DAY VELAZQUEZ MD [facility] 02-10-2022 19:05-0400 Body temperature 98.33 [degF] DAY VELAZQUEZ MD [facility] 02-10-2022 13:41-0400 Body height 162.6 cm DAY VELAZQUEZ MD [facility] 02-10-2022 13:41-0400 Body weight 118.8 kg DAY VELAZQUEZ MD [facility] 02-10-2022 13:41-0400 Heart rate 76 /min DAY VELAZQUEZ MD [facility] 10-04-2021 19:35-0500 Body height 162.6 cm DINORA KRUEGER MD [facility] 10-04-2021 19:35-0500 Body temperature 98.42 [degF] DINORA KRUEGER MD [facility] 10-04-2021 19:35-0500 Body weight 109.1 kg DINORA KRUEGER MD [facility] 10-04-2021 19:35-0500 Diastolic blood pressure 89 mm[Hg] DINORA KRUEGER MD [facility] 10-04-2021 19:35-0500 Heart rate 109 /min DINORA KRUEGER MD [facility] 10-04-2021 19:35-0500 Respiratory rate 20 /min DINORA KRUEGER MD [facility] 10-04-2021 19:35-0500 Systolic blood pressure 146 mm[Hg] DINORA KRUEGER MD [facility] 09-09-2021 15:44-0500 Body temperature 97.52 [degF] DAY VELAZQUEZ MD [facility] 09-09-2021 15:44-0500 Diastolic blood pressure 75 mm[Hg] DAY VELAZQUEZ MD [facility] 09-09-2021 15:44-0500 Heart rate 78 /min DAY VELAZQUEZ MD [facility] 09-09-2021 15:44-0500 Reason For Taking VItal Signs DAY VELAZQUEZ MD [facility] 09-09-2021 15:44-0500 Respiratory rate 16 /min DAY VELAZQUEZ MD [facility] 09-09-2021 15:44-0500 Systolic blood pressure 103 mm[Hg] DAY VELAZQUEZ MD [facility] 09-09-2021 12:08-0500 Body temperature 98.24 [degF] DAY VELAZQUEZ MD [facility] 09-09-2021 12:08-0500 Diastolic blood pressure 77 mm[Hg] DAY VELAZQUEZ MD [facility] 09-09-2021 12:08-0500 Heart rate 72 /min DAY VELAZQUEZ MD [facility] 09-09-2021 12:08-0500 Respiratory rate 16 /min DAY VELAZQUEZ MD [facility] 09-09-2021 12:08-0500 Systolic blood pressure 117 mm[Hg] DAY VELAZQUEZ MD [facility] 09-09-2021 08:12-0500 Body temperature 98.42 [degF] DAY VELAZQUEZ MD [facility] 09-09-2021 08:12-0500 Diastolic blood pressure 71 mm[Hg] DAY VELAZQUEZ MD [facility] 09-09-2021 08:12-0500 Heart rate 75 /min DAY VELAZQUEZ MD [facility] 09-09-2021 08:12-0500 Respiratory rate 16 /min DAY VELAZQUEZ MD [facility] 09-09-2021 08:12-0500 Systolic blood pressure 120 mm[Hg] DAY VELAZQUEZ MD [facility] 09-08-2021 17:00-0500 Reason For Taking VItal Signs DAY VELAZQUEZ MD [facility] 09-08-2021 13:52-0500 Reason For Taking VItal Signs DAY VELAZQUEZ MD [facility] 09-08-2021 13:45-0500 Body height 162.6 cm DAY VELAZQUEZ MD [facility] 09-08-2021 13:45-0500 Body weight 115.6 kg DAY VELAZQUEZ MD [facility] 09-08-2021 13:45-0500 Body weight 43.72 kg/m2 DAY VELAZQUEZ MD [facility] 09-08-2021 06:54-0500 Body weight 115.6 kg DAY VELAZQUEZ MD [facility] 09-07-2021 22:28-0500 Body temperature 97.52 [degF] ENZO GABRIEL-LITZY MOBILITY ENGINEER-HOME VISITOR [employer] [facility] 09-07-2021 22:28-0500 Body weight 115.6 kg ENZO GABRIEL-LITZY MOBILITY ENGINEER-HOME VISITOR [employer] [facility] 09-07-2021 22:28-0500 Diastolic blood pressure 84 mm[Hg] ENZO GABRIEL-LITZY MOBILITY ENGINEER-HOME VISITOR [employer] [facility] 09-07-2021 22:28-0500 Heart rate 79 /min ENZO GABRIEL-LITZY MOBILITY ENGINEER-HOME VISITOR [employer] [facility] 09-07-2021 22:28-0500 Respiratory rate 18 /min ENZO GABRIEL-LITZY MOBILITY ENGINEER-HOME VISITOR [employer] [facility] 09-07-2021 22:28-0500 Systolic blood pressure 141 mm[Hg] ENZO GABRIEL-LITZY MOBILITY ENGINEER-HOME VISITOR [employer] [facility] 09-03-2021 16:15-0500 Body temperature 97.7 [degF] DAY VELAZQUEZ MD [facility] 09-03-2021 16:15-0500 Diastolic blood pressure 67 mm[Hg] DAY VELAZQUEZ MD [facility] 09-03-2021 16:15-0500 Heart rate 90 /min DAY VELAZQUEZ MD [facility] 09-03-2021 16:15-0500 Respiratory rate 17 /min DAY VELAZQUEZ MD [facility] 09-03-2021 16:15-0500 Systolic blood pressure 113 mm[Hg] DAY VELAZQUEZ MD [facility] 09-03-2021 12:12-0500 Body temperature 98.06 [degF] DAY VELAZQUEZ MD [facility] 09-03-2021 12:12-0500 Diastolic blood pressure 80 mm[Hg] DAY VELAZQUEZ MD [facility] 09-03-2021 12:12-0500 Heart rate 72 /min DAY VELAZQUEZ MD [facility] 09-03-2021 12:12-0500 Reason For Taking VItal Signs DAY VELAZQUEZ MD [facility] 09-03-2021 12:12-0500 Respiratory rate 17 /min DAY VELAZQUEZ MD [facility] 09-03-2021 12:12-0500 Systolic blood pressure 128 mm[Hg] DAY VELAZQUEZ MD [facility] 09-03-2021 08:15-0500 Body temperature 97.88 [degF] DAY VELAZQUEZ MD [facility] 09-03-2021 08:15-0500 Diastolic blood pressure 79 mm[Hg] DAY VELAZQUEZ MD [facility] 09-03-2021 08:15-0500 Heart rate 62 /min DAY VELAZQUEZ MD [facility] 09-03-2021 08:15-0500 Mean blood pressure 95 mm[Hg] DAY VELAZQUEZ MD [facility] 09-03-2021 08:15-0500 Reason For Taking VItal Signs DAY VELAZQUEZ MD [facility] 09-03-2021 08:15-0500 Respiratory rate 16 /min DAY VELAZQUEZ MD [facility] 09-03-2021 08:15-0500 Systolic blood pressure 127 mm[Hg] DAY VELAZQUEZ MD [facility] 09-03-2021 03:54-0500 Mean blood pressure 88 mm[Hg] DAY VELAZQUEZ MD [facility] 09-03-2021 03:54-0500 Reason For Taking VItal Signs DAY VELAZQUEZ MD [facility] 09-02-2021 08:00-0500 Mean blood pressure 107 mm[Hg] DAY VELAZQUEZ MD [facility] 09-01-2021 07:42-0500 Heart rate 84 /min DAY VELAZQUEZ MD [facility] 08-31-2021 15:40-0500 Body temperature 97.52 [degF] DAY VELAZQUEZ MD [facility] 08-31-2021 15:40-0500 Diastolic Blood Pressure NBP 56 1 DAY VELAZQUEZ MD [facility] 08-31-2021 15:40-0500 Heart rate 82 /min DAY VELAZQUEZ MD [facility] 08-31-2021 15:40-0500 Mean blood pressure 73 mm[Hg] DAY VELAZQUEZ MD [facility] 08-31-2021 15:40-0500 Systolic Blood Pressure NBP 128 1 DAY VELAZQUEZ MD [facility] 08-31-2021 15:25-0500 Diastolic Blood Pressure NBP 57 1 DAY VELAZQUEZ MD [facility] 08-31-2021 15:25-0500 Heart rate 79 /min DAY VELAZQUEZ MD [facility] 08-31-2021 15:25-0500 Mean blood pressure 72 mm[Hg] DAY VELAZQUEZ MD [facility] 08-31-2021 15:25-0500 Systolic Blood Pressure NBP 125 1 DAY VELAZQUEZ MD [facility] 08-31-2021 15:10-0500 Diastolic Blood Pressure NBP 60 1 DAY VELAZQUEZ MD [facility] 08-31-2021 15:10-0500 Heart rate 86 /min DAY VELAZQUEZ MD [facility] 08-31-2021 15:10-0500 Mean blood pressure 72 mm[Hg] DAY VELAZQUEZ MD [facility] 08-31-2021 15:10-0500 Systolic Blood Pressure NBP 121 1 DAY VELAZQUEZ MD [facility] 08-31-2021 14:25-0500 Body temperature 97.88 [degF] DAY VELAZQUEZ MD [facility] 08-31-2021 13:50-0500 Body temperature 98.6 [degF] DAY VELAZQUEZ MD [facility] 08-31-2021 13:35-0500 Body temperature 96.8 [degF] DAY VELAZQUEZ MD [facility] 08-31-2021 13:20-0500 Body temperature 96.8 [degF] DAY VELAZQUEZ MD [facility] 08-31-2021 08:15-0500 Heart rate 76 /min DAY VELAZQUEZ MD [facility] 08-29-2021 21:58-0500 Body height 162.6 cm DAY VELAZQUEZ MD [facility] 08-29-2021 21:58-0500 Body weight 118.2 kg DAY VELAZQUEZ MD [facility] 08-29-2021 21:58-0500 Body weight 44.71 kg/m2 DAY VELAZQUEZ MD [facility] 08-28-2021 06:50-0500 Body temperature 98.42 [degF] DAY VELAZQUEZ MD [facility] 08-28-2021 06:50-0500 Diastolic blood pressure 66 mm[Hg] DAY VELAZQUEZ MD [facility] 08-28-2021 06:50-0500 Heart rate 61 /min DAY VELAZQUEZ MD [facility] 08-28-2021 06:50-0500 Reason For Taking VItal Signs DAY VELAZQUEZ MD [facility] 08-28-2021 06:50-0500 Respiratory rate 16 /min DAY VELAZQUEZ MD [facility] 08-28-2021 06:50-0500 Systolic blood pressure 104 mm[Hg] DAY VELAZQUEZ MD [facility] 08-27-2021 23:32-0500 Body temperature 98.6 [degF] DAY VELAZQUEZ MD [facility] 08-27-2021 23:32-0500 Diastolic blood pressure 59 mm[Hg] DAY VELAZQUEZ MD [facility] 08-27-2021 23:32-0500 Heart rate 83 /min DAY VELAZQUEZ MD [facility] 08-27-2021 23:32-0500 Reason For Taking VItal Signs DAY VELAZQUEZ MD [facility] 08-27-2021 23:32-0500 Respiratory rate 16 /min DAY VELAZQUEZ MD [facility] 08-27-2021 23:32-0500 Systolic blood pressure 108 mm[Hg] DAY VELAZQUEZ MD [facility] 08-27-2021 19:30-0500 Body temperature 97.7 [degF] DAY VELAZQUEZ MD [facility] 08-27-2021 19:30-0500 Diastolic blood pressure 64 mm[Hg] DAY VELAZQUEZ MD [facility] 08-27-2021 19:30-0500 Heart rate 74 /min DAY VELAZQUEZ MD [facility] 08-27-2021 19:30-0500 Mean blood pressure 81 mm[Hg] DAY VELAZQUEZ MD [facility] 08-27-2021 19:30-0500 Reason For Taking VItal Signs DAY VELAZQUZE MD [facility] 08-27-2021 19:30-0500 Respiratory rate 16 /min DAY VELAZQUEZ MD [facility] 08-27-2021 19:30-0500 Systolic blood pressure 116 mm[Hg] DAY VELAZQUEZ MD [facility] 08-27-2021 16:01-0500 Heart rate 86 /min DAY VELAZQUEZ MD [facility] 08-27-2021 16:01-0500 Mean blood pressure 77 mm[Hg] DAY VELAZQUEZ MD [facility] 08-27-2021 11:03-0500 Heart rate 70 /min DAY VELAZQUEZ MD [facility] 08-27-2021 07:15-0500 Heart rate 63 /min DAY VELAZQUEZ MD [facility] 08-26-2021 14:58-0500 Body temperature 96.98 [degF] DAY VELAZQUEZ MD [facility] 08-26-2021 14:58-0500 Diastolic Blood Pressure NBP 51 1 DAY VELAZQUEZ MD [facility] 08-26-2021 14:58-0500 Heart rate 75 /min DAY VELAZQUEZ MD [facility] 08-26-2021 14:58-0500 Mean blood pressure 66 mm[Hg] DAY VELAZQUEZ MD [facility] 08-26-2021 14:58-0500 Systolic Blood Pressure NBP 108 1 DAY VELAZQUEZ MD [facility] 08-26-2021 14:43-0500 Diastolic Blood Pressure NBP 49 1 DAY VELAZQUEZ MD [facility] 08-26-2021 14:43-0500 Heart rate 65 /min DAY VELAZQUEZ MD [facility] 08-26-2021 14:43-0500 Mean blood pressure 60 mm[Hg] DAY VELAZQUEZ MD [facility] 08-26-2021 14:43-0500 Systolic Blood Pressure NBP 102 1 DAY VELAZQUEZ MD [facility] 08-26-2021 14:13-0500 Diastolic Blood Pressure NBP 67 1 DAY VELAZQUEZ MD [facility] 08-26-2021 14:13-0500 Heart rate 64 /min DAY VELAZQUEZ MD [facility] 08-26-2021 14:13-0500 Mean blood pressure 80 mm[Hg] DAY VELAZQUEZ MD [facility] 08-26-2021 14:13-0500 Systolic Blood Pressure NBP 119 1 DAY VELAZQUEZ MD [facility] 08-26-2021 13:43-0500 Body temperature 96.8 [degF] DAY VELAZQUEZ MD [facility] 08-26-2021 13:13-0500 Body temperature 96.8 [degF] DAY VELAZQUEZ MD [facility] 08-26-2021 12:45-0500 Body temperature 95 [degF] DAY VELAZQUEZ MD [facility] 08-26-2021 12:30-0500 Body temperature 95 [degF] DAY VELAZQUEZ MD [facility] 08-26-2021 12:15-0500 Body temperature 95 [degF] DAY VELAZQUEZ MD [facility] 08-26-2021 09:36-0500 Body height 162.6 cm DAY VELAZQUEZ MD [facility] 08-26-2021 09:36-0500 Body weight 114.4 kg DAY VELAZQUEZ MD [facility] 08-23-2021 11:08-0500 Body height 162.6 cm DAY VELAZQUEZ MD [facility] 08-23-2021 11:08-0500 Body weight 117 kg DAY VELAZQUEZ MD [facility] 06-22-2021 13:25-0400 Body temperature 98.2 [degF] Ceasar Fenton MD Work Phone: [facility] Work Phone: 06-22-2021 13:25-0400 Diastolic blood pressure 67 mm[Hg] Ceasar Fenton MD Work Phone: [facility] Work Phone: 06-22-2021 13:25-0400 Heart rate 65 /min Ceasar Fenton MD Work Phone: [facility] Work Phone: 06-22-2021 13:25-0400 Respiratory rate 16 /min Ceasar Fenton MD Work Phone: [facility] Work Phone: 06-22-2021 13:25-0400 SaO2% (BldA) [Mass fraction] 99 % Ceasar Fenton MD Work Phone: [facility] Work Phone: 06-22-2021 13:25-0400 Systolic blood pressure 128 mm[Hg] Ceasar Fenton MD Work Phone: [facility] Work Phone: 06-22-2021 10:12-0400 Body height 162.6 cm Ceasar Fenton MD Work Phone: [facility] Work Phone: 06-22-2021 10:12-0400 Body mass index (BMI) [Ratio] 42.4 kg/m2 Ceasar Fenton MD Work Phone: [facility] Work Phone: 06-22-2021 10:12-0400 Body weight 112.04 kg Ceasar Fenton MD Work Phone: [facility] Work Phone: 06-09-2021 16:28-0400 Diastolic blood pressure 72 mm[Hg] Sam Calix MD Work Phone: [facility] Work Phone: 06-09-2021 16:28-0400 Heart rate 69 /min Sam Calix MD Work Phone: [facility] Work Phone: 06-09-2021 16:28-0400 Respiratory rate 16 /min Sam Calix MD Work Phone: [facility] Work Phone: 06-09-2021 16:28-0400 SaO2% (BldA) [Mass fraction] 100 % Sam Calix MD Work Phone: [facility] Work Phone: 06-09-2021 16:28-0400 Systolic blood pressure 132 mm[Hg] Sam Calix MD Work Phone: [facility] Work Phone: 06-09-2021 11:17-0400 Body height 162.6 cm Sam Calix MD Work Phone: [facility] Work Phone: 06-09-2021 11:17-0400 Body mass index (BMI) [Ratio] 42.4 kg/m2 Sam Calix MD Work Phone: [facility] Work Phone: 06-09-2021 11:17-0400 Body weight 112.04 kg Sam Calix MD Work Phone: [facility] Work Phone: 06-09-2021 11:12-0400 Body temperature 97.7 [degF] Sam Calix MD Work Phone: [facility] Work Phone: 05-17-2021 09:35-0400 Body temperature 97 [degF] Yemi Ramirez MD Work Phone: [facility] Work Phone: 05-17-2021 09:35-0400 Diastolic blood pressure 84 mm[Hg] Yemi Ramirez MD Work Phone: [facility] Work Phone: 05-17-2021 09:35-0400 Heart rate 82 /min Yemi Ramirez MD Work Phone: [facility] Work Phone: 05-17-2021 09:35-0400 Respiratory rate 18 /min Yemi Ramirez MD Work Phone: [facility] Work Phone: 05-17-2021 09:35-0400 SaO2% (BldA) [Mass fraction] 99 % [facility] Work Phone: 05-17-2021 09:35-0400 Systolic blood pressure 128 mm[Hg] Yemi Ramirez MD Work Phone: [facility] Work Phone: 05-16-2021 07:13-0400 Body height 162.6 cm Yemi Ramirez MD Work Phone: [facility] Work Phone: 05-16-2021 07:13-0400 Body mass index (BMI) [Ratio] 44.97 kg/m2 Yemi Ramirez [facility] Work Phone: 05-16-2021 07:13-0400 Body weight 118.84 kg Yemi Ramirez MD Work Phone: [facility] Work Phone: 02-10-2017 15:23-0400 BMI (Body Mass Index) 39.85 kg/m2 Poornima Jimenez MD [facility] Work Phone: 02-10-2017 15:23-0400 Body Temperature 98.2 [degF] Poornima Jimenez MD [facility] Work Phone: 02-10-2017 15:23-0400 BP Diastolic 75 mm[Hg] Poornima Jimenez MD [facility] Work Phone: 02-10-2017 15:23-0400 BP Systolic 116 mm[Hg] Poornima Jimenez MD [facility] Work Phone: 02-10-2017 15:23-0400 BSA (Body Surface Area) 2.03 m2 Poornima Jimenez MD [facility] Work Phone: 02-10-2017 15:23-0400 Height 160.02 cm Poornima Jimenez MD [facility] Work Phone: 02-10-2017 15:23-0400 Pulse (Heart Rate) 43 /min Poornima Jimenez MD [facility] Work Phone: 02-10-2017 15:23-0400 Pulse Oximetry 96 % Poornima Jimenez MD [facility] Work Phone: 02-10-2017 15:23-0400 Respiratory Rate 16 /min Poornima Jimenez MD [facility] Work Phone: 02-10-2017 15:23-0400 Weight 102.06 kg Poornima Jimenez MD [facility] Work Phone: NEGATED: Highlighted [id number] 08:40-0500 Body height 162.56 cm Wendy Tittel JUSTOWRITER OPERATOR [facility] Work Phone: NEGATED: Highlighted [id number] 08:40-0500 Body height 163 cm Wendy Tittel JUSTOWRITER OPERATOR [facility] Work Phone: NEGATED: Highlighted [id number] 08:40-0500 Body mass index (BMI) [Ratio] 44.45 kg/m2 Wendy Tittel JUSTOWRITER OPERATOR [facility] Work Phone: NEGATED: Highlighted [id number] 08:40-0500 Body temperature 98 [degF] Wendy Tittel JUSTOWRITER OPERATOR [facility] Work Phone: NEGATED: Highlighted [id number] 08:40-0500 Body temperature 98.06 [degF] Wendy Tittel JUSTOWRITER OPERATOR [facility] Work Phone: NEGATED: Highlighted [id number] 08:40-0500 Body weight 117.03 kg Ewndy Tittel JUSTOWRITER OPERATOR [facility] Work Phone: NEGATED: Highlighted [id number] 08:40-0500 Body weight 117 kg Wendy Tittel JUSTOWRITER OPERATOR [facility] Work Phone: Encounters Encounter Date Encounter Type Care Provider Facility Start: 06-09-2025 End: 06-09-2025 Patient encounter procedure Mauro SAXENA Work Phone: [facility] Comment on above: Screening for STD (s exually transmitted disease) (Primary Dx); Dysuria Start: 06-09-2025 End: 06-09-2025 [facility] Facility:[facility] Start: 06-05-2025 End: 06-05-2025 [facility] Facility:[facility] Start: 05-30-2025 End: 05-30-2025 [facility] Facility:[facility] Start: 05-10-2025 End: 05-10-2025 Telemedicine consultation with patient [address]icity [address] Work Phone: Telemedicine Comment on above: Superficial thrombop hlebitis of right upper extremity (Primary Dx) Start: 05-10-2025 End: 05-10-2025 [facility] Facility:[facility] Start: 05-08-2025 End: 05-08-2025 [facility] Facility:[facility] Start: 05-08-2025 End: 05-08-2025 Patient encounter procedure Marietta Lugo MD Work Phone: OB/Gynecology Comment on above: care and examination (HCC) (Primary Dx); Encounter for initial prescription of intrauterine contraceptive device (IUD) Start: 05-08-2025 End: 05-09-2025 Telephone encounter Marietta Lugo MD Work Phone: OB/Gynecology Comment on above: Orders Start: 04-05-2025 End: 04-05-2025 Patient encounter procedure Christofer Ayala MD Work Phone: OB/Gynecology Comment on above: care and examination (HCC) (Primary Dx) Start: 04-05-2025 End: 04-05-2025 [facility] Facility:[facility] Start: 03-28-2025 End: 03-28-2025 Patient encounter procedure Tahmina Dumont MD Work Phone: OB/Gynecology Comment on above: care foll owing delivery (HCC) (Primary Dx) Start: 03-28-2025 End: 03-28-2025 [facility] Facility:[facility] Start: 03-23-2025 End: 05-23-2025 Follow-up encounter Jammie Funes APRN.CNP Work Phone: OB/Gynecology Start: 03-23-2025 End: 03-25-2025 Evaluation and management of inpatient YOVANI FRY Facility:[facility] Start: 03-22-2025 End: 03-22-2025 ambulatory [facility] Facility:[facility] Start: 03-21-2025 End: 03-21-2025 E-mail encounter from caregiver [facility] Provider OB/Gynecology Start: 03-21-2025 End: 03-21-2025 Patient encounter procedure [facility] OB/Gynecology Comment on above: Appointment 38 weeks gestation o f (HCC) (Primary Dx); Supervision of high risk in third trimester (HCC); Insulin controlled gestational diabetes mellitus (GDM) in third trimester (HCC); Obesity affecting in second trimester, unspecified obesity type (HCC) Start: 03-21-2025 End: 03-21-2025 Telephone encounter Tahmina Dumont MD Work Phone: OB/Gynecology Comment on above: Orders Start: 03-21-2025 End: 03-21-2025 [facility] Facility:[facility] Start: 03-14-2025 End: 03-14-2025 Patient encounter procedure Tahmina Dumont MD Work Phone: OB/Gynecology Comment on above: 37 weeks gestation o f (HCC) (Primary Dx); Supervision of high risk in third trimester (HCC); Insulin controlled gestational diabetes mellitus (GDM) in third trimester (HCC); Obesity affecting in second trimester, unspecified obesity type (HCC) Start: 03-14-2025 End: 03-14-2025 [facility] Facility:[facility] Start: 03-10-2025 End: 05-10-2025 Follow-up encounter Marietta Lugo MD Work Phone: OB/Gynecology Start: 03-07-2025 End: 03-07-2025 Office outpatient visit 15 minutes Marietta Lugo MD Work Phone: OB/Gynecology Comment on above: Supervision of high risk in third trimester (HCC) (Primary Dx); Insulin controlled gestational diabetes mellitus (GDM) in third trimester (HCC); History of maternal fourth degree perineal laceration, currently (HCC); Obesity affecting in second trimester, unspecified obesity type (HCC); 36 weeks gestation of (HCC) Start: 03-07-2025 End: 05-07-2025 Follow-up encounter Jammie Funes APRN.HOME VISITOR [employer] Work Phone: OB/Gynecology Start: 03-07-2025 End: 03-07-2025 Patient encounter procedure Whi Tech 2 Corrective Therapy Aide [facility] Maternal Medicine Comment on above: Encounter for ultras ound to check growth (HCC) (Primary Dx); 36 weeks gestation of (HCC); Insulin controlled gestational diabetes mellitus (GDM) in third trimester (HCC); Obesity affecting in second trimester, unspecified obesity type (HCC) Start: 03-07-2025 End: 03-07-2025 ambulatory ROVERTO DIANE Facility:[facility] Start: 03-02-2025 End: 03-02-2025 ambulatory Marietta Lugo Facility:[facility] Start: 02-28-2025 End: 02-28-2025 ambulatory ROVERTO DIANE Facility:[facility] Start: 02-24-2025 End: 02-24-2025 Telephone encounter Armando Burton RD Work Phone: Endocrinology Start: 02-22-2025 End: 04-24-2025 Follow-up encounter Stephani Aaron APRN.[employer] VIS[employer]OR [employer] Work Phone: OB/Gynecology Start: 02-22-2025 End: 02-22-2025 Telephone encounter Winter Nation MD Work Phone: OB/Gynecology Comment on above: [facility] Start: 02-21-2025 End: 02-21-2025 Telephone encounter Winter Nation MD Work Phone: OB/Gynecology Comment on above: Request Outside [facility] Records Start: 02-21-2025 End: 02-21-2025 Patient encounter procedure Winter Nation MD Work Phone: Maternal Medicine Comment on above: Gestational diabetes mellitus (GDM) requiring insulin (HCC) (Primary Dx); Diet controlled gestational diabetes mellitus (GDM) in third trimester (HCC); History of maternal fourth degree perineal laceration, currently (HCC); Supervision of high risk in third trimester (HCC); Obesity affecting in second trimester, unspecified obesity type (HCC); Insulin controlled gestational diabetes mellitus (GDM) in third trimester (HCC); 34 weeks gestation of (HCC) Gestational diabetes mellitus (GDM) requiring insulin (HCC) (Primary Dx); 34 weeks gestation of (HCC) Start: 02-21-2025 End: 02-21-2025 ambulatory ROVERTO DIANE Facility:[facility] Start: 02-17-2025 End: 02-22-2025 ambulatory [facility] OB/Gynecology Comment on above: NPH Insulin Prior Au th Start: 02-17-2025 End: 02-22-2025 E-mail encounter from caregiver [facility] Provider OB/Gynecology Start: 02-16-2025 End: 02-16-2025 ambulatory ROVERTO DIANE Facility:[facility] Start: 02-16-2025 End: 02-16-2025 Patient encounter procedure Topher Schuler MD Work Phone: OB/Gynecology Comment on above: Supervision of high risk in third trimester (HCC) (Primary Dx); Insulin controlled gestational diabetes mellitus (GDM) in third trimester (HCC); History of maternal fourth degree perineal laceration, currently (HCC); Obesity affecting in second trimester, unspecified obesity type (HCC) Start: 02-15-2025 End: 02-15-2025 Patient encounter procedure Topher Schuler MD Work Phone: OB/Gynecology Comment on above: Supervision of high risk in third trimester (HCC) (Primary Dx); Diet controlled gestational diabetes mellitus (GDM) in third trimester (HCC); History of maternal fourth degree perineal laceration, currently (HCC); Obesity affecting in second trimester, unspecified obesity type (HCC) Start: 02-15-2025 End: 02-15-2025 [facility] Facility:[facility] Start: 02-09-2025 End: 02-09-2025 ambulatory Britney Griffin Facility:[facility] Start: 02-09-2025 End: 02-09-2025 ambulatory ROVERTO DIANE Facility:[facility] Start: 02-09-2025 End: 02-09-2025 Patient encounter procedure Britney Griffin MD Work Phone: OB/Gynecology Comment on above: Decreased move ments in third trimester, single or unspecified fetus (HCC) (Primary Dx) Start: 02-09-2025 End: 02-10-2025 Telephone encounter Britney Griffin MD Work Phone: OB/Gynecology Start: 02-07-2025 End: 02-07-2025 Telephone encounter Marietta Cobb RN Maternal Medicine Comment on above: Weed Thinner - O ther ([facility]) Start: 02-06-2025 End: 04-08-2025 Follow-up encounter Stephani Aaron APRN.HOME VIS[employer]OR [employer] Work Phone: OB/Gynecology Start: 02-06-2025 End: 02-06-2025 Patient encounter procedure Britney Griffin MD Work Phone: OB/Gynecology Comment on above: Diet controlled gest ational diabetes mellitus (GDM) in third trimester (HCC) (Primary Dx); History of maternal fourth degree perineal laceration, currently (HCC); Supervision of high risk in third trimester ([facility]); Obesity affecting in second trimester, unspecified obesity type (HCC); 32 weeks gestation of ([facility]) Encounter for ultras ound to check growth (HCC) (Primary Dx); Diet controlled gestational diabetes mellitus (GDM) in third trimester (HCC); 32 weeks gestation of (HCC) Start: 02-06-2025 End: 02-06-2025 ambulatory ROVERTO DIANE Facility:[facility] Start: 01-31-2025 End: 01-31-2025 ambulatory Tahmina Dumont MD Work Phone: OB/Gynecology Comment on above: Gestational diabetes Start: 01-23-2025 End: 01-23-2025 Telephone encounter Sandhya Reno APRN.CNM Work Phone: OB/Gynecology Comment on above: Vaginal Problem Start: 01-21-2025 End: 01-23-2025 ambulatory Tahmina Dumont MD Work Phone: OB/Gynecology Comment on above: Please add to notes Start: 01-20-2025 End: 01-20-2025 ambulatory [facility] Facility:[facility] Start: 01-20-2025 End: 01-20-2025 Office outpatient visit 15 minutes Marietta Luog MD Work Phone: OB/Gynecology Comment on above: 29 weeks gestation o f (HCC) (Primary Dx); Diet controlled gestational diabetes mellitus (GDM) in third trimester (HCC); History of maternal fourth degree perineal laceration, currently (HCC); Supervision of high risk in third trimester (HCC); Obesity affecting in second trimester, unspecified obesity type (HCC); Decreased movements in second trimester, single or unspecified fetus (HCC) Start: 01-10-2025 End: 03-12-2025 Follow-up encounter Tahmina Dumont MD Work Phone: OB/Gynecology Start: 01-10-2025 End: 01-10-2025 Telephone encounter Tahmina Dumont MD Work Phone: OB/Gynecology Comment on above: Appointment Start: 01-10-2025 End: 01-10-2025 Nursing evaluation of patient and report Mirta Santos RN Work Phone: Endocrinology Comment on above: Diet controlled gest ational diabetes mellitus (GDM) in third trimester ([facility]) Start: 01-10-2025 End: 01-10-2025 ambulatory [facility] Facility:[facility] Start: 01-10-2025 End: 01-10-2025 Patient encounter procedure Whi Tech 2 Corrective Therapy Aide [facility] Maternal Medicine Comment on above: Encounter for ultras ound to check growth (HCC) (Primary Dx); Obesity affecting in second trimester, unspecified obesity type (HCC); 28 weeks gestation of (HCC) Supervision of high risk in third trimester (HCC) (Primary Dx); Diet controlled gestational diabetes mellitus (GDM) in third trimester (HCC); History of maternal fourth degree perineal laceration, currently (HCC); 28 weeks gestation of (HCC); Obesity affecting in third trimester, unspecified obesity type (HCC); Need for vaccination Start: 01-09-2025 End: 01-09-2025 Telephone encounter Angela Paul MD Work Phone: OB/Gynecology Comment on above: OB Abdominal Trauma Start: 01-09-2025 End: 01-09-[address] Alfredo Barroso MD Work Phone: [facility] Work Phone: Start: 01-09-2025 End: 01-09-[address] Angela Paul DO -[facility] Work Phone: Start: 01-05-2025 End: 01-05-2025 Telephone encounter Marietta Lugo MD Work Phone: OB/Gynecology Comment on above: OB Pain Start: 01-05-2025 End: 01-05-[address] Marietta Lugo MD -[facility], Outpatients Work Phone: Start: 01-05-2025 End: 01-05-[address] Alfredo Barroso MD Work Phone: [facility] Work Phone: Start: 12-30-2024 End: 12-30-2024 Follow-up encounter Stephani Aaron APRN.HOME VISITOR [employer] Work Phone: OB/Gynecology Comment on above: GDM Start: 12-30-2024 End: 12-30-2024 ambulatory [facility] Facility:[facility] Start: 12-29-2024 End: 02-28-2025 Follow-up encounter Stephani Aaron APRN.HOME VISITOR [employer] Work Phone: OB/Gynecology Comment on above: Results Start: 12-29-2024 End: 12-29-2024 ambulatory [facility] Facility:[facility] Start: 12-22-2024 End: 12-22-2024 Telephone encounter Tahmina Dumont MD Work Phone: OB/Gynecology Start: 12-19-2024 End: 12-19-2024 Telephone encounter Marietta Cobb RN Maternal Medicine Comment on above: Weed Thinner - O ther (PRAF) Start: 12-15-2024 End: 12-15-2024 ambulatory [facility] Facility:[facility] Start: 12-15-2024 End: 12-15-2024 Office outpatient visit 15 minutes Marietta Lugo MD Work Phone: OB/Gynecology Comment on above: Supervision of high risk in second trimester (Primary Dx); Obesity affecting in second trimester, unspecified obesity type; History of maternal fourth degree perineal laceration, currently ; Acute deep vein thrombosis (DVT) of right upper extremity, unspecified vein (HCC); Rectovaginal fistula; Liver hemangioma; 24 weeks gestation of ; Screening for diabetes mellitus Start: 11-17-2024 ambulatory Alfredosophia Barroso [facility] Start: 11-15-2024 End: 11-15-2024 ambulatory [facility] Facility:[facility] Start: 11-15-2024 End: 11-15-2024 Patient encounter procedure Whi Tech 1 Corrective Therapy Aide Mfm Wstr Mob Maternal Medicine Comment on above: Encounter for anatomic survey (Primary Dx); Obesity affecting in second trimester, unspecified obesity type; 20 weeks gestation of History of gestation al diabetes in prior , currently (Primary Dx); History of maternal fourth degree perineal laceration, currently ; Acute deep vein thrombosis (DVT) of right upper extremity, unspecified vein (HCC); Rectovaginal fistula; Obesity affecting in second trimester, unspecified obesity type; History of forceps delivery in prior , currently ; Liver hemangioma 20 weeks gestation o f (Primary Dx); Supervision of high risk in second trimester; Obesity affecting in second trimester, unspecified obesity type; History of maternal fourth degree perineal laceration, currently Start: 10-30-2024 End: 10-30-2024 Emergency department patient visit Yovani Uriostegui -Emergency Department Work Phone: Start: 10-26-2024 End: 10-27-2024 Telephone encounter Tahmina Dumont MD Work Phone: OB/Gynecology Comment on above: Question (OB Questio n) Start: 10-25-2024 End: 10-25-2024 Emergency department patient visit Yovanitacos Uriostegui DO -Emergency Department Work Phone: Start: 10-20-2024 End: 10-20-2024 ambulatory R[facility]O DIANE Facility:[facility] Start: 10-20-2024 End: 10-20-2024 Patient encounter procedure Tahmina Dumont MD Work Phone: OB/Gynecology Comment on above: 16 weeks gestation o f (Primary Dx); Supervision of high risk in second trimester; Obesity affecting in second trimester, unspecified obesity type; History of maternal fourth degree perineal laceration, currently ; 7 weeks gestation of Start: 10-13-2024 End: 10-17-2024 Telephone encounter Angela Paul MD Work Phone: OB/Gynecology Comment on above: breast pump Start: 10-12-2024 End: 10-12-2024 ambulatory [facility] DIANE Facility:[facility] Start: 10-12-2024 End: 10-12-2024 Patient encounter procedure Nuno Madrid PA-C Work Phone: [facility] Comment on above: Facial cellulitis (P rimary Dx) Start: 10-12-2024 End: 10-12-2024 Emergency department patient visit Dr. Jayro Brooks DO -Emergency Department Work Phone: Start: 10-11-2024 End: 10-11-2024 Telemedicine consultation with patient Elvia Yan APRN.CNP Work Phone: Telemedicine Comment on above: Dental abscess (Prim alvarez Dx) Start: 10-11-2024 End: 10-11-2024 ambulatory [facility] DIANE Facility:[facility] Start: 09-29-2024 End: 09-29-2024 Chart abstracting Roverto Diane MD Work Phone: Family [facility] Start: 09-28-2024 End: 09-28-[address] David Michael MD -[facility] Work Phone: Start: 09-28-2024 End: 09-28-2024 ambulatory David Michael Facility:[facility] Start: 09-19-2024 End: 09-19-2024 ambulatory [facility] Facility:[facility] Start: 09-19-2024 End: 09-19-2024 Patient encounter procedure Stephani Aaron APRN.CNP Work Phone: OB/Gynecology Comment on above: Supervision of high risk in second trimester (Primary Dx); 12 weeks gestation of ; Obesity affecting in second trimester, unspecified obesity type; History of maternal fourth degree perineal laceration, currently ; Acute deep vein thrombosis (DVT) of right upper extremity, unspecified vein (HCC); History of gestational diabetes in prior , currently ; History of forceps delivery in prior , currently ; Dysuria Encounter for antena julissa screening for malformation using ultrasound (Primary Dx); 12 weeks gestation of Start: 09-16-2024 End: 09-16-2024 Telephone encounter Michael Rosado APRN.CNP Work Phone: [facility] Comment on above: Results Start: 09-15-2024 End: 09-15-2024 ambulatory [facility] Facility:[facility] Start: 09-15-2024 End: 09-15-2024 Patient encounter procedure Mauro SAXENA Work Phone: [facility] Comment on above: Sore throat (Primary Dx); URI, acute Start: 09-05-2024 End: 09-05-2024 ambulatory [facility] Facility:[facility] Start: 08-28-2024 End: 08-28-2024 ambulatory Rosalina Wright RN NURSE YACHT RIGGER Comment on above: Patient Update Start: 08-19-2024 End: 08-19-2024 Telephone encounter Sole Iraheta RN Obstetrics/Gynecolo gy Comment on above: PRAF Start: 08-18-2024 End: 08-18-2024 ambulatory [facility] Facility:[facility] Start: 08-18-2024 End: 08-18-2024 Patient encounter procedure Jammie Funes APRN.CNP Work Phone: OB/Gynecology Comment on above: with uncer tain dates, antepartum (Primary Dx); Vaginal discharge; 7 weeks gestation of ; Encounter for supervision of normal in multigravida in first trimester; History of maternal fourth degree perineal laceration, currently ; Rectovaginal fistula; Acute deep vein thrombosis (DVT) of right upper extremity, unspecified vein (HCC) Start: 08-17-2024 End: 08-23-2024 ambulatory [facility] OB/Gynecology Comment on above: testing Start: 08-17-2024 End: 08-23-2024 E-mail encounter from caregiver [facility] OB/Gynecology Start: 08-13-2024 End: 08-15-2024 ambulatory Angi Santos MD Work Phone: Hematology/Oncology Comment on above: Abnormal results Start: 08-03-2024 End: 08-03-2024 Telephone encounter Roverto Diane MD Work Phone: [facility] Comment on above: Patient Update Start: 07-27-2024 End: 07-27-2024 ambulatory [facility]ERTO DIANE Facility:[facility] Start: 07-25-2024 End: 07-25-2024 ambulatory [facility] DIANE Facility:[facility] Start: 07-25-2024 End: 07-25-2024 Patient encounter procedure Angela Paul MD Work Phone: OB/Gynecology Comment on above: Early stage of pregn shine (Primary Dx); History of fourth degree perineal laceration; History of gestational diabetes in prior , currently ; History of DVT (deep vein thrombosis) Start: 07-22-2024 End: 07-25-2024 Telephone encounter Sandhya Reno APRN.CNM Work Phone: OB/Gynecology Comment on above: Patient Question Start: 07-13-2024 End: 07-13-2024 Orders Only Guille Trivedi MD Work Phone: Cardiology Comment on above: History of syncope ( Primary Dx) Start: 07-12-2024 End: 07-12-2024 ambulatory R[facility]ERTO DIANE Facility:[facility] Start: 07-12-2024 End: 07-12-2024 ambulatory Angi Santos MD Work Phone: Hematology/Oncology Comment on above: History of blood jake ts (Primary Dx); PT (paroxysmal tachycardia) (HCC); INR (international normal ratio) abnormal; History of syncope Start: 07-12-2024 End: 07-12-2024 Patient encounter procedure Angi Santos MD Work Phone: Hematology/Oncology Start: 07-11-2024 End: 07-11-2024 ambulatory [facility] DIANE Facility:[facility] Start: 06-30-2024 End: 06-30-2024 ambulatory Kurtis Roth MD Work Phone: Obstetrics/Gynecology Start: 06-30-2024 End: 06-30-2024 Patient encounter procedure Kurtis Roth MD Work Phone: Obstetrics/Gynecology Start: 06-29-2024 End: 07-19-2024 Telephone encounter Riley Kent MD Work Phone: Hematology/Oncology Comment on above: New Patient Start: 06-28-2024 End: 06-28-2024 ambulatory ROVERTO ARSLAN Facility:[facility] Start: 06-28-2024 End: 06-28-2024 Patient encounter procedure Buck Szymanski APRN.HOME VISITOR [employer] Work Phone: [facility] Comment on above: Discharge from both nipples (Primary Dx); Fibrocystic breast changes of both breasts; Family history of breast cancer Start: 06-27-2024 End: 06-27-2024 [facility] Facility:[facility] Start: 06-27-2024 End: 06-27-2024 Patient encounter procedure Darlin Ling APRN.HOME VISITOR [employer] Work Phone: Plastic Surgery Comment on above: Excess skin (Primary Dx); Intertrigo; History of blood clots Start: 06-25-2024 End: 06-25-2024 ambulatory ROVERTO ARSLAN Facility:[facility] Start: 06-25-2024 End: 06-25-2024 Patient encounter procedure Jared Florentino APRN.HOME VISITOR [employer] Work Phone: [facility] Comment on above: Acute effusion of ri ght ear (Primary Dx); Bacterial sinusitis Start: 06-06-2024 End: 06-06-2024 Patient encounter procedure Cooper Gastelum APRN.HOME VISITOR [employer] Work Phone: [facility] Comment on above: ADHD (attention defi cit hyperactivity disorder), predominantly hyperactive impulsive type (Primary Dx) Start: 05-17-2024 ambulatory Cooper campos APRN.HOME VISITOR [employer] Work Phone: [facility] Comment on above: Adhd Start: 05-13-2024 Telephone encounter Alecia Dumont APRN.HOME VISITOR [employer] Work Phone: [facility] Comment on above: Results Start: 05-12-2024 Telephone encounter Michael jaimes APRN.HOME VISITOR [employer] Work Phone: [facility] Comment on above: Results Start: 05-11-2024 End: 05-11-2024 Patient encounter procedure Sandhya Aguilar APRN.HOME VISITOR [employer] Work Phone: [facility] Comment on above: Suprapubic pressure (Primary Dx); Vaginal discharge Start: 05-10-2024 End: 06-08-2024 [facility] Cooper Gastelum APRN.HOME VISITOR [employer] Work Phone: [facility] Comment on above: ADHD (attention defi cit hyperactivity disorder), predominantly hyperactive impulsive type (Primary Dx) 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 ion Start: 05-02-2024 End: 05-02-2024 ambulatory Darryl Ramirez APRN.HOME VISITOR [employer] Work Phone: OB/Gynecology Comment on above: Menorrhagia with irr egular cycle (Primary Dx); Missed menses; PCOS (polycystic ovarian syndrome) Start: 05-02-2024 End: 05-02-2024 Telemedicine consultation with patient Darryl Ramirez APRN.HOME VISITOR [employer] Work Phone: OB/Gynecology Start: 04-11-2024 Refill Fabian hurd MD Work Phone: General Surgery BMI Comment on above: Refill Request Start: 02-25-2024 Telephone encounter Keri starrrger MOBILITY ENGINEER.HOME VISITOR [employer] Work Phone: [facility] Comment on above: Appointment Start: 02-25-2024 End: 02-25-2024 Patient encounter procedure Keri Murphy Victor Manuel MOBILITY ENGINEER.HOME VISITOR [employer] Work Phone: Internal Medicine [facility] Comment on above: Diarrhea of presumed infectious origin (Primary Dx); Abdominal cramping Start: 02-18-2024 End: 02-18-2024 Telemedicine consultation with patient Cristino Murphy Michael GARCIA Work Phone: Telemedicine Comment on above: Urinary tract infect ion without hematuria, site unspecified (Primary Dx) Start: 02-16-2024 End: 02-16-2024 Office outpatient visit 40 minutes Fabian Brasher MD Work Phone: General Surgery BMI Comment on above: Class 3 severe obesi ty without serious comorbidity with body mass index (BMI) of 45.0 to 49.9 in adult, unspecified obesity type (HCC) (Primary Dx); Polycystic ovary syndrome Start: 02-08-2024 Refill Fabian hurd MD Work Phone: General Surgery Comment on above: Refill Request Start: 02-03-2024 Admission to [facility] Fabian Brasher MD Work Phone: General Surgery Comment on above: Meds Start: 02-03-2024 ambulatory Fabian hurd MD Work Phone: General Surgery Start: 02-02-2024 End: 02-02-2024 Patient encounter procedure Maryann Matias PA-C Work Phone: [facility] Comment on above: Right facial swellin g (Primary Dx) Start: 01-27-2024 End: 01-27-2024 Patient encounter procedure Michael Rosado MOBILITY ENGINEER.HOME VISITOR [employer] Work Phone: [facility] Comment on above: URI, acute (Primary Dx); ETD (Eustachian tube dysfunction), right Start: 12-27-2023 End: 12-27-2023 Emergency department patient visit Vianney Richardson MOBILITY ENGINEER.HOME VISITOR [employer] Work Phone: Telemedicine Comment on above: Emergency contracept alek counseling (Primary Dx) Start: 12-27-2023 End: 12-27-2023 Telemedicine consultation with patient Vianney Richardson MOBILITY ENGINEER.HOME VISITOR [employer] Work Phone: [facility] Start: 12-10-2023 ambulatory Humberto delgado MD Work Phone: Obstetrics/Gynecology Comment on above: Ultrasound Start: 12-09-2023 End: 12-09-2023 Patient encounter procedure Mauro SAXENA Work Phone: [facility] Comment on above: Vaginal discharge (P rimary Dx) Start: 12-06-2023 End: 12-06-2023 ambulatory Elvia Yan APRN.HOME VISITOR [employer] Work Phone: Telemedicine Comment on above: Vaginal discharge (P rimary Dx) Start: 12-06-2023 End: 12-06-2023 Telemedicine consultation with patient Elvia Yan APRN.HOME VISITOR [employer] Work Phone: [facility] Start: 12-03-2023 ambulatory Cooper saucedo PA-C Work Phone: OB/Gynecology Comment on above: Ultrasound Start: 11-27-2023 End: 11-27-2023 Patient encounter procedure Buck Braggmichel VYAS.HOME VISITOR [employer] Work Phone: [facility] Comment on above: Discharge from both nipples (Primary Dx); Family history of breast cancer; Family history of ovarian cancer; Fibrocystic breast changes of both breasts; Excess weight Start: 11-27-2023 End: 11-27-2023 Subsequent hospital visit by physician [facility] Work Phone: Mammography Comment on above: Discharge from both nipples [N64.52] Start: 11-27-2023 End: 11-27-2023 ambulatory Cooper Jordan PA-C Work Phone: OB/Gynecology Comment on above: Menorrhagia with reg ular cycle (Primary Dx); Hirsutism; Acne, unspecified acne type; BMI 38.0-38.9,adult Start: 11-27-2023 End: 11-27-2023 Telemedicine consultation with patient Copoer Beth Jordan PA-C Work Phone: [facility] Start: 11-24-2023 Telephone encounter Keri Murphy Leonidas denis MOBILITY ENGINEER.HOME VISITOR [employer] Work Phone: [facility] Comment on above: Erroneous encounter- disregard Start: 11-24-2023 End: 11-24-2023 Emergency department patient visit [facility]-Emergency Department Work Phone: Start: 11-24-2023 End: 11-24-2023 ambulatory Nurse Intm/Famp Triage [facility] Work Phone: Nurse Phone Triage Comment on above: Abdominal Pain Start: 11-23-2023 End: 11-23-2023 Patient encounter procedure Alecia Dumont MOBILITY ENGINEER.HOME VISITOR [employer] Work Phone: [facility] Comment on above: Urinary frequency (P rimary Dx); Right lower quadrant abdominal pain Start: 11-23-2023 End: 11-23-2023 ambulatory Armando Aponte MOBILITY ENGINEER.HOME VISITOR [employer] Work Phone: Telemedicine Comment on above: Treatment not availa ble (Primary Dx) Start: 11-23-2023 End: 11-23-2023 Telemedicine consultation with patient Armando Naya Aponte MOBILITY ENGINEER.HOME VISITOR [employer] Work Phone: [facility] Start: 11-18-2023 End: 11-18-2023 Emergency department patient visit [facility]-Emergency Department Work Phone: Start: 11-18-2023 ambulatory Roverto delgado MD Work Phone: [facility] Comment on above: Headache; Hypertensi on Start: 11-18-2023 End: 11-18-2023 Office outpatient visit 25 minutes Fabian Brasher MD Work Phone: General Surgery Comment on above: Class 3 severe obesi ty without serious comorbidity with body mass index (BMI) of 45.0 to 49.9 in adult, unspecified obesity type (HCC) (Primary Dx) Start: 11-10-2023 ambulatory Cooper Ervinvannessa saucedo PA-C Work Phone: OB/Gynecology Comment on above: Found something Start: 11-06-2023 ambulatory Cooper Ervinvannessa NGUYENC Work Phone: OB/Gynecology Comment on above: Estrogen. Start: 10-28-2023 End: 10-28-2023 ambulatory COOPER JORDAN Facility:[facility] Start: 10-20-2023 End: 10-20-2023 Emergency department patient visit [facility] Start: 10-14-2023 End: 10-14-2023 ambulatory [facility] Facility:[facility] Start: 10-01-2023 End: 10-02-2023 ambulatory [facility] Facility:[facility] Start: 10-01-2023 Encounter for other preprocedural examination ROVERTO DIANE [facility] Start: 09-17-2023 End: 09-17-2023 Patient encounter procedure 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 [employer] Work Phone: [facility] Comment on above: Calculus of gallblad ricki without cholecystitis without obstruction (Primary Dx); RUQ pain Start: 09-17-2023 Telephone encounter Roverto Diane MD Work Phone: [facility] Comment on above: Results Start: 09-16-2023 Chart abstracting Roverto gilbert MD Work Phone: [facility] Comment on above: Outside MRI Start: 09-14-2023 End: 09-14-2023 Subsequent hospital visit by physician Aria Sims (1.5t) Work Phone: Radiology Start: 08-27-2023 ambulatory Roverto delgado MD Work Phone: [facility] Comment on above: Liver Start: 08-24-2023 Telephone encounter Roverto Diane MD Work Phone: [facility] Comment on above: Appointment; Results Start: 08-21-2023 ambulatory ROVERTO DIANE [facility] ty:[facility] Start: 08-21-2023 End: 08-21-2023 Subsequent hospital visit by physician [facility] Comment on above: Complication of intr auterine device (IUD), unspecified complication, initial encounter ([facility]) [T83.9XXA] Start: 08-20-2023 End: 08-20-2023 Emergency department patient visit Dr. Alfredo Barroso Work Phone: [facility]-Emergency Department Work Phone: Start: 08-17-2023 End: 08-17-2023 Office outpatient visit 25 minutes Fabian Brasher MD Work Phone: General Surgery Comment on above: Class 3 severe obesi ty without serious comorbidity with body mass index (BMI) of 45.0 to 49.9 in adult, unspecified obesity type (HCC) (Primary Dx) Start: 08-14-2023 Telephone encounter Mireya mccormack DO Work Phone: Colorectal Surgery Comment on above: Results Start: 08-14-2023 End: 08-14-2023 Manual pelvic examination Mireya Shah DO Work Phone: Colorectal Surgery Comment on above: Pelvic floor dysfunc tion (Primary Dx) Start: 08-14-2023 End: 08-14-2023 Telemedicine consultation with patient Mireya Baumanermias ALVARENGA Work Phone: [facility] Start: 08-05-2023 End: 08-05-2023 Subsequent hospital visit by physician Ct [facility] Radiology Comment on above: Complete intestinal obstruction, unspecified cause ([facility]) [K56.601] Start: 08-05-2023 End: 08-05-2023 ambulatory Sandhya Carolina PA-C Work Phone: Colorectal Surgery Comment on above: Manometry Start: 08-05-2023 End: 08-05-2023 Patient encounter procedure Sandhya Carolina PA-C Work Phone: [facility] Start: 07-28-2023 ambulatory Mireya Shah DO Work Phone: Colorectal Surgery Start: 07-23-2023 Chart abstracting Roverto gilbert MD Work Phone: [facility] Comment on above: ext document ([facility] ER Report) Start: 07-22-2023 End: 07-22-2023 Emergency department patient visit Dr. Alfredo Barroso Work Phone: [facility]-Emergency Department Work Phone: Start: 06-25-2023 Telephone encounter Cooper silva MOBILITY ENGINEER.HOME VISITOR [employer] Work Phone: [facility] Comment on above: Results Start: 06-23-2023 End: 06-23-2023 Patient encounter procedure 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 [employer] Work Phone: [facility] Comment on above: White vaginal discha rge (Primary Dx); Urethral pain; Encounter for screening for diabetes mellitus Start: 06-23-2023 End: 06-23-2023 ambulatory Marietta Kitchen APRN.HOME VISITOR [employer] Work Phone: Telemedicine Comment on above: Treatment not availa ble (Primary Dx) Start: 06-23-2023 End: 06-23-2023 Telemedicine consultation with patient Marietta Kitchen APRN.HOME VISITOR [employer] Work Phone: [facility] Start: 06-21-2023 ambulatory Fabian hurd MD Work Phone: General Surgery Comment on above: Medication Start: 06-09-2023 End: 06-09-2023 Patient encounter procedure Pj James MD Work Phone: Neurology Comment on above: Migraine without aur a and without status migrainosus, not intractable (Primary Dx) Start: 06-08-2023 End: 06-08-2023 ambulatory Fabian Brasher MD Work Phone: General Surgery Comment on above: Class 3 severe obesi ty without serious comorbidity with body mass index (BMI) of 45.0 to 49.9 in adult, unspecified obesity type (HCC) (Primary Dx); Candidal intertrigo; Hernia of abdominal wall; Polycystic ovary syndrome Today Start: 06-08-2023 End: 06-08-2023 Telemedicine consultation with patient Fabian Brasher MD Work Phone: [facility] Start: 06-01-2023 End: 06-01-[address] Alfredo Barroso Work Phone: [facility] Work Phone: Start: 05-20-2023 Chart abstracting Roverto gilbert MD Work Phone: [facility] Comment on above: Results - Ct Start: 05-19-2023 Non-patient / Non-visit Dr. Thai Barroso Work Phone: [facility] Start: 05-18-2023 Non-patient / Non-visit Dr. Thai Barroso Work Phone: [facility] Start: 05-18-2023 End: 05-19-2023 Evaluation and management of inpatient Dr. Alfredo Barroso Work Phone: [facility] Work Phone: Start: 05-15-2023 End: 05-15-2023 Orders Only Stephani Morrison MOBILITY ENGINEER.HOME VISITOR [employer] Work Phone: General Surgery Comment on above: Class 3 severe obesi ty without serious comorbidity with body mass index (BMI) of 45.0 to 49.9 in adult, unspecified obesity type (HCC) Results Recurrent UTI (Prima ry Dx) Start: 05-14-2023 End: 05-14-2023 ambulatory Nicky Fonseca MOBILITY ENGINEER.HOME VISITOR [employer] Work Phone: Telemedicine Comment on above: Treatment not availa ble (Primary Dx) Opened In Error Start: 05-14-2023 End: 05-14-2023 Patient encounter procedure Maryann Matias PA-C Work Phone: [facility] Comment on above: Recurrent UTI (Prima ry Dx) Start: 05-14-2023 End: 05-14-2023 ambulatory Jo Napoles MOBILITY ENGINEER.HOME VISITOR [employer] Work Phone: Telemedicine Comment on above: Treatment not availa ble (Primary Dx) Start: 05-09-2023 ambulatory Angela felder JUSTOWRITER OPERATOR NURSE YACHT RIGGER Comment on above: IUD Start: 05-07-2023 Orders Only Stephani EWING RN.HOME VISITOR [employer] Work Phone: Endocrinology BMI Comment on above: Class 3 severe obesi ty without serious comorbidity with body mass index (BMI) of 45.0 to 49.9 in adult, unspecified obesity type (HCC) (Primary Dx) Start: 04-30-2023 End: 04-30-2023 Emergency department patient visit [facility]Emergency Department Work Phone: Start: 04-28-2023 Orders Only Stephani EWING RN.HOME VISITOR [employer] Work Phone: Endocrinology BMI Start: 04-25-2023 Refill Fabian hurd MD Work Phone: General Surgery Comment on above: Refill Request Start: 04-18-2023 End: 04-18-2023 Patient encounter procedure Maryann Matias PA-C Work Phone: [facility] Comment on above: Pelvic pain (Primary Dx) Start: 04-13-2023 ambulatory Fabian hurd MD Work Phone: General Surgery Comment on above: Out of stock Start: 04-11-2023 Refill Fabian hurd MD Work Phone: General Surgery Comment on above: Refill Request Start: 04-07-2023 Refill Fabian hurd MD Work Phone: General Surgery Comment on above: Refill Request Start: 03-12-2023 End: 03-12-2023 Patient encounter procedure Humberto Schultz MD Work Phone: Obstetrics/Gynecology Comment on above: Well female exam wit h routine gynecological exam (Primary Dx); Acute vaginitis; Frequent UTI Start: 03-12-2023 End: 03-12-2023 Patient encounter status Humberto Schultz MD Work Phone: Obstetrics/Gynecology Start: 03-10-2023 ambulatory No Pcp (Historcal) Refe rring Physician Start: 02-12-2023 End: 02-12-2023 Subsequent hospital visit by physician Xr [facility] Work Phone: Radiology Comment on above: Acute pain of left michel wiggins [M25.512] Start: 02-12-2023 End: 02-12-2023 Office outpatient visit 15 minutes Roverto Ag APRN.CNP Work Phone: [facility] Comment on above: Acute pain of left michel wiggins (Primary Dx) Start: 02-11-2023 ambulatory Roverto delgado MD Work Phone: [facility] Comment on above: Embarrassed Vaginal discharge (P rimary Dx) Start: 01-08-2023 Telephone encounter Ngoc baez OD Work Phone: Ophthalmology Comment on above: Orders Start: 12-24-2022 Refill Maryann Shahid Work Phone: [facility] Comment on above: Refill Request Start: 12-24-2022 End: 12-24-2022 ambulatory Fabian Brasher MD Work Phone: General Surgery Comment on above: Class 3 severe obesi ty without serious comorbidity with body mass index (BMI) of 45.0 to 49.9 in adult, unspecified obesity type (HCC) (Primary Dx); History of gastroesophageal reflux (GERD) Start: 12-24-2022 End: 12-24-2022 Telemedicine consultation with patient Fabian Brasher MD Work Phone: [facility] Start: 12-19-2022 End: 12-19-2022 Patient encounter procedure Ngoc Dukes OD Work Phone: Ophthalmology Comment on above: Diplopia (Primary Dx ); Intermittent alternating exotropia; Meibomian gland dysfunction (MGD) of upper and lower lids of both eyes Start: 12-17-2022 End: 12-17-2022 Patient encounter procedure Parker Bergeron MD Work Phone: Ophthalmology Comment on above: Diplopia (Primary Dx ); Meibomian gland dysfunction (MGD) of upper and lower lids of both eyes Start: 12-16-2022 End: 12-17-2022 ambulatory [facility] Facility:A Start: 12-16-2022 End: 12-16-2022 Patient encounter procedure [facility] Start: 12-10-2022 End: 12-10-2022 Subsequent hospital visit by physician Ajay [facility] Work Phone: Radiology Comment on above: Bronchitis [J40] Start: 12-10-2022 End: 12-10-2022 Patient encounter procedure Maryann Matias PA-C Work Phone[facility] Comment on above: Bronchitis (Primary Dx) Start: 12-05-2022 End: 12-05-2022 Patient encounter procedure Pj James MD Work Phone: Neurology Comment on above: Blurry vision, right eye (Primary Dx) Start: 12-02-2022 End: 12-02-2022 Patient encounter procedure Shilpa Winetrs MD Work Phone: General Surgery Comment on above: RUQ abdominal pain ( Primary Dx); Hernia of abdominal wall Start: 12-01-2022 End: 12-01-2022 Patient encounter procedure Cooper Gastelum APRN.CNP Work Phone: [facility] Comment on above: Hernia of abdominal wall (Primary Dx) Start: 11-06-2022 End: 11-06-2022 Patient encounter procedure Humberto Schultz MD Work Phone: Obstetrics/Gynecology Comment on above: IUD (intrauterine de vice) in place (Primary Dx); PCOS (polycystic ovarian syndrome) Start: 10-29-2022 End: 10-29-2022 Patient encounter procedure Fabian Brasher MD Work Phone: General Surgery Comment on above: Class 3 severe obesi ty without serious comorbidity with body mass index (BMI) of 45.0 to 49.9 in adult, unspecified obesity type (HCC) (Primary Dx) Start: 10-16-2022 End: 10-17-2022 ambulatory [facility] Facility:A Start: 10-16-2022 End: 10-16-2022 Patient encounter procedure [facility] Start: 10-01-2022 End: 10-01-2022 ambulatory [facility]:A Start: 10-01-2022 End: 10-01-2022 SAME DAY STAY [facility] Start: 09-29-2022 End: 09-29-2022 ambulatory Fabian Brasher MD Work Phone: General Surgery Comment on above: Class 3 severe obesi ty without serious comorbidity with body mass index (BMI) of 45.0 to 49.9 in adult, unspecified obesity type (HCC) (Primary Dx) Start: 09-29-2022 End: 09-29-2022 Telemedicine consultation with patient Fabian Brasher MD Work Phone: [facility] Start: 09-24-2022 End: 09-25-2022 ambulatory [facility] Facility:A Start: 09-24-2022 End: 09-24-2022 Admission to [facility] Start: 09-18-2022 End: 09-19-2022 [facility]:A Start: 09-18-2022 End: 09-18-2022 Patient encounter procedure [facility] Start: 09-11-2022 Telephone encounter Cooper silva MOBILITY ENGINEER.HOME VISITOR [employer] Work Phone: [facility] Comment on above: Results Start: 09-09-2022 End: 09-09-2022 Patient encounter procedure Cooper Gastelum APRN.HOME VISITOR [employer] Work Phone: [facility] Medicine [facility] Comment on above: Class 3 severe obesi ty without serious comorbidity with body mass index (BMI) of 45.0 to 49.9 in adult, unspecified obesity type (HCC) (Primary Dx); Encounter for screening for diabetes mellitus; Weight gain Start: 09-03-2022 End: 09-04-2022 ambulatory DAY VELAZQUEZ MD Facility:A Start: 09-03-2022 End: 09-03-2022 Patient encounter procedure DAY VELAZQUEZ MD [facility] Start: 08-29-2022 End: 08-30-2022 ambulatory DAY VELAZQUEZ MD Facility:B Start: 08-26-2022 Orders Only Summer Beronica Murphy D Work Phone: General Surgery Start: 08-11-[address] Darryl Rodriguez Facilit [id number] Start: 08-11-2022 Postop follow up vis it related to original px Referring Provider Unknown [id number] Mobile Work Phone: Start: 08-04-2022 Orders Only Summer Beronica M D Work Phone: General Surgery Start: 08-04-2022 Chart Update Referring Prov ider Unknown DC-Dnqytvo-Xiuehwaf SJW [id number] Work Phone: Start: 07-22-2022 End: 07-22-2022 ambulatory Darryl Rodriguez Facility:[facility] Start: 07-22-2022 Chart Update Referring Prov ider Unknown KW-Fqjeqbi-Bfeww Nikhil Work Phone: Start: 07-16-2022 End: 07-17-2022 ambulatory DAY VELAZQUEZ MD Facility:A Start: 07-16-2022 End: 07-16-2022 Patient encounter procedure DAY VELAZQUEZ MD [facility] Start: 07-07-2022 Orders Only Summer Beronica M D Work Phone: Endocrinology Start: 07-02-2022 End: 07-02-2022 Patient encounter procedure Sandhya Aguilar APRN.HOME VISITOR [employer] Work Phone: [facility] Comment on above: Allergic reaction, i nitial encounter (Primary Dx) Start: 06-23-2022 End: 06-23-2022 Patient encounter procedure Roverto Ag APRN.HOME VISITOR [employer] Work Phone: [facility] Comment on above: Acute bilateral low back pain, unspecified whether sciatica present (Primary Dx); Acute sinusitis, recurrence not specified, unspecified location Start: 06-18-2022 End: 06-18-2022 Patient encounter procedure Fabian Brasher MD Work Phone: General Surgery Comment on above: Class 3 severe obesi ty without serious comorbidity with body mass index (BMI) of 45.0 to 49.9 in adult, unspecified obesity type (HCC) (Primary Dx); Weight gain Start: 06-11-2022 Chart Update Referring Prov ider Unknown AG-Kvvhmoz-Oshax [employer] Work Phone: Start: 06-11-2022 End: 06-11-[address] Darryl Rodriguez Facility:[facility] Start: 05-22-2022 End: 05-22-2022 Patient encounter procedure Leelee Tobar APRN.HOME VISITOR [employer] Work Phone: Family Medicine [facility] Comment on above: Weight gain (Primary Dx) Start: 05-01-[address] Darryl Rodriguez Facilit [id number] Start: 05-01-2022 Office outpatient ne w 60 minutes Referring Provider Unknown MB-Aqekgvf-Zvvfp Nikhil Work Phone: Start: 04-24-2022 End: 04-24-2022 Patient encounter procedure Leelee Tobar APRN.HOME VISITOR [employer] Work Phone: Family Medicine [facility] Comment on above: Weight gain (Primary Dx) Start: 04-23-2022 End: 04-24-2022 ambulatory DAY VELAZQUEZ MD Facility:A Start: 04-23-2022 End: 04-23-2022 Patient encounter procedure DAY VELAZQUEZ MD [facility] Start: 04-09-2022 End: 04-10-2022 ambulatory DAY VELAZQUEZ MD Facility:A Start: 04-09-2022 End: 04-10-2022 Encounter for other specified special examinations DAY VELAZQUEZ MD Facility:A Start: 04-03-2022 End: 04-04-2022 ambulatory DAY VELAZQUEZ MD Facility:B Start: 03-27-2022 End: 03-28-2022 ambulatory DAY VELAZQUEZ MD Facility:A Start: 03-27-2022 End: 03-27-2022 Patient encounter procedure DAY VELAZQUEZ MD [facility] Start: 02-26-2022 End: 02-27-2022 ambulatory DAY VELAZQUEZ MD Facility:A Start: 02-26-2022 End: 02-26-2022 Patient encounter procedure DAY VELAZQUEZ MD [facility] Start: 02-10-2022 End: 02-14-2022 Evaluation and management of inpatient DAY VELAZQUEZ MD Facility:A Start: 02-10-2022 End: 02-14-2022 Evaluation and management of inpatient DAY VELAZQUEZ MD [facility] Start: 01-10-2022 End: 01-11-2022 ambulatory QUINTON ROCHA MOBILITY ENGINEER-HOME VISITOR [employer] Facility:A Start: 01-10-2022 End: 01-10-2022 Patient encounter procedure QUINTON ROCHA MOBILITY ENGINEER-HOME VISITOR [employer] [facility] Start: 01-01-2022 End: 01-02-2022 ambulatory DAY VELAZQUEZ MD Facility:A Start: 01-01-2022 End: 01-01-2022 Patient encounter procedure DAY VELAZQUEZ MD [facility] Start: 12-26-2021 End: 12-26-2021 Patient encounter procedure QUINTON ROCHA MOBILITY ENGINEER-HOME VISITOR [employer] [facility] Start: 11-27-2021 End: 11-27-2021 Patient encounter procedure DAY VELAZQUEZ MD [facility] Start: 11-13-2021 End: 11-13-2021 Patient encounter procedure DAY VELAZQUEZ MD [facility] Start: 10-16-2021 End: 10-16-2021 Patient encounter procedure QUINTON ROCHA MOBILITY ENGINEER-HOME VISITOR [employer] [facility] Start: 10-04-2021 End: 10-04-2021 Emergency department patient visit DINORA KRUEGER MD [facility] Start: 09-19-2021 End: 09-19-2021 Patient encounter procedure DAY VELAZQUEZ MD [facility] Start: 09-08-2021 End: 09-09-2021 Observation DAY VELAZQUEZ MD [facility] Start: 09-07-2021 End: 09-08-2021 Emergency department patient visit ENZO MEDINA MOBILITY ENGINEER-HOME VISITOR [employer] [facility] Start: 08-29-2021 End: 09-03-2021 Evaluation and management of inpatient DAY VELAZQUEZ MD [facility] Start: 08-26-2021 End: 08-28-2021 Observation DAY VELAZQUEZ MD [facility] Start: 08-22-2021 End: 08-22-2021 Patient encounter procedure DAY VELAZQUEZ MD [facility] Start: 08-08-2021 End: 08-08-2021 Patient encounter procedure DAY VELAZQUEZ MD [facility] Start: 07-30-2021 End: 07-30-2021 Patient encounter procedure DAY VELAZQUEZ MD [facility] Start: 07-25-2021 End: 07-25-2021 Patient encounter procedure DAY VELAZQUEZ MD [facility] Start: 06-22-2021 End: 06-22-2021 Emergency department patient visit Ceasar Fenton MD Work Phone: [facility] Emergency Dept Comment on above: Perineal pain (Prima ry Dx) Start: 06-09-2021 End: 06-09-2021 Emergency department patient visit Sam Calix MD Work Phone: [facility] Emergency Dept Comment on above: Lower abdominal pain (Primary Dx); Rectal pain; Difficult or painful urination; Acute cystitis without hematuria Start: 05-16-2021 End: 05-17-2021 Subsequent hospital visit by physician Yemi Ramirez MD Work Phone: [facility] MED SURG Comment on above: Rectovaginal fistula (Primary Dx) Start: 12-29-2020 End: 12-29-2020 Subsequent hospital visit by physician Ajay [facility] Work Phone: Radiology Comment on above: Elbow injury, right, initial encounter [S59.901A] Procedures Date Procedure Procedure Detail Performing Clinician Start: 06-09-2025 Urnls dip stick/tabl et rgnt auto w/o microscopy Mauro SAXENA Work Phone: Start: 03-23-2025 End: 03-28-2025 History of cholecystectomy Status post laparoscopic cholecystectomy Tahmina Dumont MD Work Phone: Start: 03-22-2025 Antibody screen ROVERTO DIANE Comment on above: Order Comment: Speci men Type: BLOOD SPECIMENOrdering Facility: [facility] Address: [address] [place] [address] Performed By: #### T SPN ####[facility] BLOOD BANKCLIA [id number] [place]A [place] [address] [place] Start: 03-21-2025 Urnls dip stick/tabl et rgnt non-auto w/o micrscp Tahmina Dumont MD Work Phone: Start: 03-14-2025 Urnls dip stick/tabl et rgnt non-auto w/o micrscp Tahmina Dumont MD Work Phone: Start: 03-07-2025 Urnls dip stick/tabl et rgnt non-auto w/o micrscp Marietta Lugo MD Work Phone: Start: 03-07-2025 Us preg uterus after 1st trimest 10/12 gestation Stephani Aaron APRN.HOME VISITOR [employer] Work Phone: Start: 02-21-2025 Us preg uterus after 1st trimest 10/12 gestation Stephani Aaron APRN.HOME VISITOR [employer] Work Phone: Start: 02-06-2025 Urnls dip stick/tabl et rgnt non-auto w/o micrscp Britney Griffin MD Work Phone: Start: 02-06-2025 Us preg uterus after 1st trimest 10/12 gestation Stephani Aaron APRN.HOME VISITOR [employer] Work Phone: Start: 01-10-2025 Us preg uterus after 1st trimest 10/12 gestation Tahmina Dumont MD Work Phone: Start: 11-15-2024 Us preg uterus after 1st trimest 10/12 gestation Tahmina Dumont MD Work Phone: Start: 09-28-2024 Evaluation of diagno stic study results Dr. Alfredo Barroso MD Work Phone: Start: 09-19-2024 Urnls dip stick/tabl et rgnt auto w/o microscopy Stephani Aaron APRN.HOME VISITOR [employer] Work Phone: Start: 09-19-2024 Us nuchal translucency 1st gestation Jammie [place]port MOBILITY ENGINEER.HOME VISITOR [employer] Work Phone: Start: 09-15-2024 STREP A MOLECULAR (POC) Mauro SAXENA Work Phone: Start: 09-05-2024 Antibody screen ROVERTO DIANE Comment on above: Order Comment: Speci men Type: BLOOD SPECIMEN Ordering Facility: [facility] Address: [address] [place] [address] Performed By: #### T SPN #### CC MAIN BLOOD BANK CLIA [id number] [address] [place] [address] [place] Start: 08-18-2024 Us uterus limited 1/> fetuses Jammie Ludwigcalf MOBILITY ENGINEER.HOME VISITOR [employer] Work Phone: Start: 06-30-2024 Us pelvic nonobstetr ic real-time image complete Darryl Ramirez MOBILITY ENGINEER.HOME VISITOR [employer] Work Phone: Start: 05-11-2024 Urnls dip stick/tabl et rgnt auto w/o microscopy Humberto Conrad MD Work Phone: Start: 12-09-2023 BACTERIAL VAGINOSIS NAAT Mauro SAXENA Work Phone: Start: 11-27-2023 Us breast uni real t olivia with image limited Buck Szymanski APRN.HOME VISITOR [employer] Work Phone: Start: 11-24-2023 Computed tomography of abdomen and pelvis with intravenous contrast Start: 11-23-2023 Urnls dip stick/tabl et rgnt auto w/o microscopy Roverto Ag APRN.HOME VISITOR [employer] Work Phone: Start: 11-18-2023 CT of head without contrast Start: 09-14-2023 Mri abdomen w/o & w/contrast material [facility] Provider Start: 08-05-2023 [facility] ANORECTAL MANOMETRY Sandhya Carolina PA-C Work Phone: Start: 08-05-2023 Ct abdomen & pelvis w/contrast material Mireya Shah DO Work Phone: Start: 06-23-2023 Urnls dip stick/tabl et rgnt auto w/o microscopy 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 [employer] Work Phone: Start: 05-19-[address] Alfredo Barroso Work Phone: Start: 05-18-2023 Computed tomography of abdomen and pelvis with intravenous contrast Dr. Alfredo Barroso Work Phone: Start: 05-14-2023 Urnls dip stick/tabl et rgnt auto w/o microscopy Maryann R Athy PA-C Work Phone: Start: 04-30-2023 Viral antigen assay Start: 04-18-2023 Culture bacterial quanttative colony count urine Maryann R Athy PA-C Work Phone: Start: 04-18-2023 Urnls dip stick/tabl et rgnt auto w/o microscopy Maryann R Athy PA-C Work Phone: Start: 03-12-2023 Cytp c/v auto thin l yr prepj scr mnl rescr phys Humberto Schultz MD Work Phone: Start: 02-12-2023 Radex shoulder compl ete minimum 2 views Roverto Ag MOBILITY ENGINEER.HOME VISITOR [employer] Work Phone: Start: 12-17-2022 Computerized ophthal madelaine imaging optic nerve Parker Bergeron MD Work Phone: Start: 12-10-2022 Radiologic exam ches t 2 views Maryann R Athy PA-C Work Phone: Start: 10-01-2022 Incisional hernia (disorder) [facility] [employer] Comment on above: Robotic Assisted Lap aroscopic Ventral He, ROBOTIC INCISIONAL AND UMBILICAL HERNIA REPAIR, LYSIS OF ADHESIONS Start: 10-01-2022 Umbilical hernia (disorder) [facility] [employer] Comment on above: Robotic Assisted Lap aroscopic Ventral He, ROBOTIC INCISIONAL AND UMBILICAL HERNIA REPAIR, LYSIS OF ADHESIONS Start: 07-12-2022 Sphincteroplasty donna muscle transplant [facility] DO Comment on above: Dr Darryl Rodriguez Start: 02-10-2022 H/O: ileostomy DAY VELAZQUEZ MD Start: 02-10-2022 Closure of ileostomy SA LEBRON VELAZQUEZ MD Start: 02-10-2022 Examination under anesthesia (qualifier value) DAY VELAZQUEZ MD Comment on above: exploratory laparoto my, lysis of adhesions, ileostomy reversal with partial small bowel resection Start: 11-18-2021 End: 11-19-2021 BP scrn no perf at interval Julia Iqbal PAC Work Phone: Start: 11-18-2021 End: 11-19-2021 Calc BMI abv up dax f/u Julia Iqbal PAC Work Phone: Start: 11-18-2021 End: 11-19-2021 Current tobacco non-user cad cap copd pv dm Julia Iqbal PAC Work Phone: Start: 11-18-2021 End: 11-19-2021 Docrev cur meds by carmina Iqbal PAC Work Phone: Start: 11-18-2021 End: 11-19-2021 No doc of pain Julia Iqbal PAC Work Phone: Start: 11-18-2021 End: 11-19-2021 Patient encounter procedure Julia Iqbal PAC Work Phone: Start: 11-18-2021 End: 11-18-2021 Pneuma/vac walk boot pre ots Julia Iqbal PAC Work Phone: Start: 11-15-2021 End: 11-15-2021 Documentation of current medications Wendy Mcmullen LPN Start: 10-04-2021 H/O: ileostomy DINORA KRUEGER MD Start: 09-08-2021 H/O: ileostomy ENZO MEDINA MOBILITY ENGINEER-HOME VISITOR [employer] Start: 08-31-2021 Creation of loop ileostomy DAY VELAZQUEZ MD Start: 08-31-2021 Exploratory laparotomy DAY VELAZQUEZ MD Start: 08-26-2021 Perineorrhaphy [facility] Start: 06-22-2021 Basic metabolic pane l calcium total Shelley Escobar MD Work Phone: Start: 06-22-2021 Urnls dip stick/tabl et rgnt auto w/o microscopy Shelley Escobar MD Work Phone: Start: 06-09-2021 ADD ON LAB TEST Sam Calix MD Work Phone: Start: 06-09-2021 Iadna multiple organ isms direct probe tq Sam Calix MD Work Phone: Start: 06-09-2021 Computed tomography of abdomen and pelvis with contrast Michelle Stallings MD Work Phone: Start: 06-09-2021 Comprehensive metabo lic panel Michelle Stallings MD Work Phone: Start: 06-09-2021 Urnls dip stick/tabl et rgnt auto w/o microscopy Michelle Stallings MD Work Phone: Start: 05-16-2021 OPERATIVE REPORT 3m Sca nning Start: 05-16-2021 Ecg routine ecg w/le ast 12 lds w/i&r Jason Ann MD Work Phone: Start: 05-16-2021 Gluc bld gluc mntr d ev cleared fda spec home use Yemi Ramirez MD Work Phone: Start: 12-29-2020 Radex elbow complete minimum 3 views Melissa Daniel MOBILITY ENGINEER.HOME VISITOR [employer] Work Phone: Start: 10-12-2019 Dilation and curettage DAY VELAZQUEZ MD Start: 03-23-2017 Adult depression screening assessment Leelee Tobar APRN.CNP Work Phone: Start: 06-25-2012 End: 07-04-2012 Bacteria identified in Throat by Culture Maria Esther Grover MD Start: 06-25-2012 End: 06-25-2012 Rapid strep test Maria Esther Grover MD Start: 03-02-2012 End: 03-02-2012 Follow Up Appt 1 month Maria Esther Grover MD Start: 01-28-2012 End: 03-02-2012 Pulmonary Fuction Test - complete Maria Esther Grover MD Barium enema DAY Person Dilation and curettage NITISH VELAZQUEZ MD Extraction of wisdom tooth DAY VELAZQUEZ MD Fourth degree perine al laceration (disorder) DAY VELAZQUEZ MD H/O: ileostomy Ileostomy status ( Confirmed ) DAY VELAZQUEZ MD H/O: ileostomy DAY VELAZQUEZ MD Perineal laceration involving vaginal muscles (disorder) DAY VELAZQUEZ MD NEGATED: Highlighted rowStart: 11-18-2021 End: 11-18-2021 Documentation of current medications Wendy Mcmullen LPN Plan of Treatment Date Care Activity Detail Author Start: 2037 PAP TESTING PAP TESTING [facility] Start: 01-10-2035 Urine microalbumin profile [facility] Start: 04-27-2031 DTaP/Tdap/Td vaccine (3 - Td or Tdap) DTaP/Tdap/Td vaccine (3 - Td or Tdap) MCKENZIE Work Phone: Start: 04-27-2031 Urine microalbumin profile DTaP,Tdap,Td Vaccine (4 - Td or Tdap) [facility] Start: 04-23-2031 Urine microalbumin profile DTaP,Tdap,Td Vaccine (3 - Td or Tdap) [facility] Start: 03-12-2026 PAP TESTING PAP TESTING [facility] Start: 03-12-2026 Screening for malignant neoplasm of cervix [facility] Start: 09-06-2025 End: 09-06-2025 Follow-up encounter 09/06/2025 3:00 PM EST [facility] General Surgery BMI [address] [place] [address] Christine Ma APRN.HOME VISITOR [employer] [address] [place] [address] Followup visit in 3mo with Christine Ma APRN General Surgery BMI Comment on above: Followup visit in 3mo with Christine saucedo APRN Start: 08-04-2025 End: 08-04-2025 Patient encounter procedure 08/04/2025 2:00 PM EDT Office Visit General Surgery [address] [place] [address] Fabian Brasher MD [address] [facility] [address] [place] [address] I just want my meds back General Surgery Comment on above: I just want my meds back Start: 06-13-2025 End: 06-13-2025 Patient encounter procedure General Surgery BMI Comment on above: non surgical medical weight managment i want to start my m eds again Start: 06-12-2025 Influenza vaccination [facility] Start: 05-31-2025 End: 05-31-2025 Patient encounter procedure 05/31/2025 11:10 AM EDT Office Visit OB/Gynecology [address] [place], [place] [id number] Marietta Lugo MD [address] [place] [address] IUD OB/Gynecology Comment on above: IUD Start: 05-23-2025 End: 05-23-2025 Patient encounter procedure 05/23/2025 1:30 PM EDT Office Visit OB/Gynecology [address] [place] [address] Tahmina Dumont MD [address] [place] [id number] 6 wk follow up OB/Gynecology Comment on above: 6 wk follow up Start: 05-08-2025 End: 05-08-2025 Patient encounter procedure OB/Gynecology Comment on above: IUD insert 6 week PP- reschedul e IUD insertion after visit Start: 04-28-2025 End: 04-28-2025 Patient encounter procedure 04/28/2025 10:40 AM EDT Office Visit OB/Gynecology [address] [place] [address] Britney Griffin MD [address] [place] [address] 6 wk follow up OB/Gynecology Comment on above: 6 wk follow up Start: 04-19-2025 End: 04-19-2025 Patient encounter procedure 04/19/2025 1:30 PM EDT Office Visit Obstetrics/Gynecology [address] [place] [address] Rach Hoffman APRN.[facility] [address] [place] [address] 2wk follow up Obstetrics/Gynecology Comment on above: 2wk follow up Start: 03-23-2025 End: 03-23-2025 Admission to same day surgery center 03/23/2025 11:30 AM EDT - 03/23/2025 1:27 PM EDT Surgery [facility] [address] L&[address] [address] [place] [address] Yovani Fry MD [address] [place] [address] SECTION REPEAT [facility] 3 L&D Comment on above: SECTION REPEAT Start: 03-23-2025 End: 03-23-2025 delivery only SECTION REPEAT Insulin controlled gestational diabetes mellitus (GDM) in third trimester (HCC) 03/23/2025 11:30 AM EDT [facility] OB Start: 03-23-2025 Subsequent hospital visit by physician 03/23/2025 11:30 AM EDT Hospital Encounter [facility] [address] L[address] [address] [place] [address] Yovani Fry MD [address] [place] [address] Insulin controlled gestational diabetes mellitus (GDM) in third trimester (HCC) [O24.414] [facility] 3 L&D Comment on above: Insulin controlled gestational diabetes mellitus (GDM) in third trimester ([facility]) [O24.414] Start: 03-22-2025 End: 03-22-2025 ambulatory 03/22/2025 11:30 AM EDT Results Only [facility] [address] [place] [address] [facility] Start: 03-21-2025 End: 06-20-2025 ANEMIA REFLEX PANEL ANEMIA REFLEX PANEL Lab Routine 38 weeks gestation of ([facility]) Supervision of high risk in third trimester ([facility]) Expected: 03/21/2025, Expires: 06/20/2025 [facility] Work Phone: Comment on above: Expected: 03/21/2025, Expires: Start: 03-21-2025 End: 03-21-2025 Patient encounter procedure OB/Gynecology Comment on above: NST NST/OB Start: 03-21-2025 End: 06-20-2025 SYPHILIS TREPONEMAL W/REFLEX SYPHILIS TREPONEMAL W/REFLEX Lab Routine 38 weeks gestation of ([facility]) Supervision of high risk in third trimester ([facility]) Expected: 03/21/2025, Expires: 06/20/2025 [facility] Comment on above: Expected: 03/21/2025, Expires: Start: 03-21-2025 End: 06-20-2025 TYPE + SCREEN TYPE + SCREEN Blood Bank Routine 38 weeks gestation of ([facility]) Supervision of high risk in third trimester ([facility]) Expected: 03/21/2025, Expires: 06/20/2025 [facility] Comment on above: Expected: 03/21/2025, Expires: Start: 03-14-2025 End: 03-14-2025 Patient encounter procedure OB/Gynecology Comment on above: NST NST/OB Start: 03-07-2025 End: 03-07-2025 Patient encounter procedure Maternal Medicine Comment on above: Growth Start: 02-28-2025 End: 02-28-2025 Patient encounter procedure OB/Gynecology Comment on above: NST NST/OB Start: 02-27-2025 End: 02-27-2025 ambulatory 02/27/2025 9:00 AM EDT [facility] Endocrinology [address] [place] [address] Armando Burton, RD [address] [address] [id number] controlled gestational diabetes mellitus (GDM) in third trimester ([facility]) [O24.410] Endocrinology Comment on above: [id number] controlled gestational diabet es mellitus (GDM) in third trimester ([facility]) [O24.410] Start: 02-22-2025 End: 02-22-2025 Nutrition therapy 02/22/2025 4:00 PM EDT [facility] Nutrition Therapy [address] [address] Christine White, RD [address] [place] [address] Diet controlled gestational diabetes mellitus (GDM) in third trimester ([facility]) [O24.410] Nutrition Therapy Comment on above: Diet controlled gestational diabetes angela litus (GDM) in third trimester ([facility]) [O24.410] Start: 02-21-2025 End: 02-21-2025 Patient encounter procedure Maternal Medicine Comment on above: Growth Diet controlled gest ational diabetes mellitus (GDM) in third trimester ([facility]) [O24.410]; History of maternal fourth degree perineal laceration, currently ([facility]) [O09.299]; Supervision of high risk in third trimester (HCC) [O09.93]; Obesity affecting in second trimester, unspecified obesity type (HCC) [O99.212] Start: 02-16-2025 End: 02-16-2025 Patient encounter procedure OB/Gynecology Comment on above: NST only NST Start: 02-15-2025 End: 02-15-2025 Patient encounter procedure OB/Gynecology Comment on above: NST OB Routine Start: 02-06-2025 End: 02-06-2025 Patient encounter procedure Maternal Medicine Comment on above: growth OB ` Start: 01-20-2025 End: 01-20-2025 Patient encounter procedure 01/20/2025 11:20 AM EDT Routine Office Visit OB/Gynecology [address] [place] [id number] Marietta Lugo MD [address] [place] [address] OB-review BS log OB/Gynecology Comment on above: OB-review BS log Start: 01-10-2025 End: 01-10-2025 Nursing evaluation of patient and report 01/10/2025 1:00 PM EDT Nurse Visit Endocrinology [address] MD [id number] Mirta Santos, RN [address] [id number] Diet controlled gestational diabetes mellitus (GDM) in third trimester [O24.410] Endocrinology Comment on above: Diet controlled gestational diabetes angela litus (GDM) in third trimester [O24.410] Start: 01-10-2025 End: 01-10-2025 ambulatory 01/10/2025 11:00 AM EDT Results Only [facility] [address] [place] [id number] Glucose Test [facility] Comment on above: Glucose Test Start: 01-10-2025 End: 01-10-2025 Patient encounter procedure Maternal Medicine Comment on above: Growth OB Routine OB Routine/ also wan ts to discuss the fact that she wants no more children US at 1030-OB Routin e/ also wants to discuss the fact that she wants no more children Start: 01-09-2025 Nonstress test [facility] Start: 01-09-2025 Obstetric monitoring [facility] Start: 01-09-2025 [facility] Start: 01-09-2025 Vital signs measurements [facility] Start: 01-09-2025 Patient discharge [facility] Start: 01-05-2025 Nonstress test [facility] Start: 01-05-2025 Obstetric monitoring [facility] Start: 01-05-2025 Vital signs measurements [facility] Start: 01-05-2025 [facility] Start: 01-05-2025 Patient discharge [facility] Start: 12-29-2024 End: 03-30-2025 GEST GLUC LOLA, 3-HR, 100 GM, FASTING GEST GLUC LOLA, 3-HR, 100 GM, FASTING Lab Routine Elevated glucose tolerance test Expected: 12/29/2024, Expires: 03/30/2025 [facility] Work Phone: Comment on above: Expected: 12/29/2024, Expires: Start: 12-29-2024 End: 12-29-2024 ambulatory [facility] Comment on above: Supervision of high risk in se cond trimester [O09.92] Start: 12-19-2024 End: 12-19-2024 ambulatory 12/19/2024 11:00 AM EDT Results Only Cardiology [address] [place] [address] History of syncope [Z87.898] Cardiology Comment on above: History of syncope [Z87.898] Start: 12-19-2024 End: 12-19-2024 Patient encounter procedure Cardiology Comment on above: History of syncope [Z87.898] Start: 12-15-2024 End: 03-16-2025 ANEMIA REFLEX PANEL ANEMIA REFLEX PANEL Lab Routine Supervision of high risk in second trimester Obesity affecting in second trimester, unspecified obesity type History of maternal fourth degree perineal laceration, currently Acute deep vein thrombosis (DVT) of right upper extremity, unspecified vein (HCC) Rectovaginal fistula Liver hemangioma 24 weeks gestation of Expected: 12/15/2024, Expires: 03/16/2025 [facility] Comment on above: Expected: 12/15/2024, Expires: Start: 12-15-2024 End: 12-15-2025 GESTATIONAL GLUCOSE SCREEN, 1-HOUR, 50 GRAM, NON-FASTING GESTATIONAL GLUCOSE SCREEN, 1-HOUR, 50 GRAM, NON-FASTING Lab Routine Supervision of high risk in second trimester Obesity affecting in second trimester, unspecified obesity type History of maternal fourth degree perineal laceration, currently Acute deep vein thrombosis (DVT) of right upper extremity, unspecified vein (HCC) Rectovaginal fistula Liver hemangioma 24 weeks gestation of Screening for diabetes mellitus Expected: 12/15/2024, Expires: 12/15/2025 [facility] Work Phone: Comment on above: Expected: 12/15/2024, Expires: Start: 12-15-2024 End: 12-15-2025 SYPHILIS TREPONEMAL W/REFLEX SYPHILIS TREPONEMAL W/REFLEX Lab Routine Supervision of high risk in second trimester Obesity affecting in second trimester, unspecified obesity type History of maternal fourth degree perineal laceration, currently Acute deep vein thrombosis (DVT) of right upper extremity, unspecified vein (HCC) Rectovaginal fistula Liver hemangioma 24 weeks gestation of Expected: 12/15/2024, Expires: 12/15/2025 [facility] Comment on above: Expected: 12/15/2024, Expires: Start: 12-13-2024 End: 12-13-2024 Patient encounter procedure 12/13/2024 11:15 AM EST Routine Office Visit OB/Gynecology [address] [place] [address] Sandhya Reno APRN.CN [address] [place] [address] OB Routine OB/Gynecology Comment on above: OB Routine Start: 11-15-2024 End: 11-15-2024 Patient encounter procedure Maternal Medicine Comment on above: History of maternal fourth degree perine al laceration, currently [O09.299] OB Routine Start: 10-30-2024 Enteric precautions [facility] Start: 10-25-2024 [facility] Start: 10-20-2024 End: 10-20-2025 OBSTETRIC ULTRASOUND WHI OBSTETRIC ULTRASOUND [facility] Anc Imaging Routine Supervision of high risk in second trimester Obesity affecting in second trimester, unspecified obesity type History of maternal fourth degree perineal laceration, currently Expected: 10/20/2024, Expires: 10/20/2025 [facility] Work Phone: Comment on above: Expected: 10/20/2024, Expires: Start: 10-20-2024 End: 10-20-2024 Patient encounter procedure 10/20/2024 10:40 AM EST Routine Office Visit OB/Gynecology [address] [place] [address] Tahmina Dumont MD [address] [place] [address] OB Routine OB/Gynecology Comment on above: OB Routine Start: 10-12-2024 [facility] Start: 10-05-2024 Subsequent hospital visit by physician 10/05/2024 Hospital Encounter Admitting [address] [place] [address] Og Mccullough MD [address] [place], [place] [id number] Excess skin [L98.7], Intertrigo [L30.4] Admitting Comment on above: Excess skin [L98.7], Intertrigo [L30.4] Start: 09-19-2024 End: 09-19-2024 Patient encounter procedure Maternal Medicine Comment on above: Nuchal OB First tri anatomy Start: 09-05-2024 End: 09-05-2024 ambulatory 09/05/2024 8:15 AM EST Results Only [facility] [address] [place] [address] [facility] Start: 08-23-2024 End: 11-22-2024 CARRIER SCREEN, STANDARD CARRIER SCREEN, STANDARD Lab Routine 8 weeks gestation of Expected: 08/23/2024, Expires: 11/22/2024 [facility] Work Phone: Comment on above: Expected: 08/23/2024, Expires: Start: 08-18-2024 End: 11-17-2024 ANEMIA REFLEX PANEL ANEMIA REFLEX PANEL Lab Routine 7 weeks gestation of Expected: 08/18/2024, Expires: 11/17/2024 [facility] Work Phone: Comment on above: Expected: 08/18/2024, Expires: Start: 08-18-2024 End: 11-17-2024 Chromosome 21 trisomy [Presence] in Blood or Tissue by Cytogenetics [id number] PLUS Lab Routine 7 weeks gestation of Expected: 08/18/2024, Expires: 11/17/2024 [facility] Comment on above: Expected: 08/18/2024, Expires: Start: 08-18-2024 End: 11-17-2024 Hemoglobin A1c in Blood HEMOGLOBIN A1C Lab Routine 7 weeks gestation of Expected: 08/18/2024, Expires: 11/17/2024 [facility] Comment on above: Expected: 08/18/2024, Expires: Start: 08-18-2024 End: 11-17-2024 Hepatitis B virus surface Ag [Presence] in Serum HEPATITIS B SURFACE ANTIGEN Lab Routine 7 weeks gestation of Expected: 08/18/2024, Expires: 11/17/2024 [facility] Comment on above: Expected: 08/18/2024, Expires: Start: 08-18-2024 End: 11-17-2024 Hepatitis C virus Ab [Presence] in Serum HEPATITIS C ANTIBODY IA WITH CONFIRMATION Lab Routine 7 weeks gestation of Expected: 08/18/2024, Expires: 11/17/2024 [facility] Comment on above: Expected: 08/18/2024, Expires: Start: 08-18-2024 End: 11-17-2024 HIV 1+2 Ab [Presence] in Serum or Plasma by Immunoassay HIV 1/2 COMBO WITH REFLEX TO DIFFERENTIATION Lab Routine 7 weeks gestation of Expected: 08/18/2024, Expires: 11/17/2024 [facility] Comment on above: Expected: 08/18/2024, Expires: Start: 08-18-2024 End: 08-18-2025 NUCHAL TRANSLUCENCY WHI NUCHAL TRANSLUCENCY WHI Anc Imaging Routine 7 weeks gestation of Expected: 08/18/2024, Expires: 08/18/2025 [facility] Comment on above: Expected: 08/18/2024, Expires: Start: 08-18-2024 End: 11-17-2024 RUBELLA IGG ANTIBODY RUBELLA IGG ANTIBODY Lab Routine 7 weeks gestation of Expected: 08/18/2024, Expires: 11/17/2024 [facility] Comment on above: Expected: 08/18/2024, Expires: Start: 08-18-2024 End: 11-17-2024 SYPHILIS TREPONEMAL W/REFLEX SYPHILIS TREPONEMAL W/REFLEX Lab Routine 7 weeks gestation of Expected: 08/18/2024, Expires: 11/17/2024 [facility] Comment on above: Expected: 08/18/2024, Expires: Start: 08-18-2024 End: 11-17-2024 TYPE + SCREEN TYPE + SCREEN Blood Bank Routine 7 weeks gestation of Expected: 08/18/2024, Expires: 11/17/2024 [facility] Comment on above: Expected: 08/18/2024, Expires: Start: 08-18-2024 End: 08-18-2024 Patient encounter procedure 08/18/2024 8:15 AM EST Initial Office Visit OB/Gynecology [address] [place] [address] Jammie Funes APRN.HOME VISITOR [facility] [address] [place] [address] NOB LMP 06/25 OB/Gynecology Comment on above: NOB LMP 06/25 Start: 08-08-2024 End: 08-08-2024 ambulatory 08/08/2024 12:45 PM EDT [facility] OB/Gynecology [address] [place], [place] [phone] Darryl Ramirez APRN.HOME VISITOR [facility] [address] [place] [address] Missed the jessica today I didn't get a reminder OB/Gynecology Comment on above: Missed the jessica today I didn't get a helena nder Start: 08-07-2024 Subsequent hospital visit by physician 08/07/2024 Hospital Encounter [facility] [address] [id number] Og Mccullough MD [address] [facility] [place] [address] Excess skin [L98.7], Intertrigo [L30.4] Surgery Center Comment on above: Excess skin [L98.7], Intertrigo [L30.4] Start: 08-04-2024 End: 08-04-2024 Patient encounter procedure 08/04/2024 8:00 AM EDT Office Visit [facility] [address] [place] [phone] Cooper Gastelum APRN.HOME VISITOR [facility] [address] [place], [place] [phone] Diarrhea x 4 days; Happens after she eats or drinks [facility] Comment on above: Diarrhea x 4 days; Happens after she eat s or drinks Start: 08-02-2024 End: 08-02-2024 Patient encounter procedure 08/02/2024 8:45 AM EDT Office Visit General Surgery [address] [place] [address] Fabian Brasher MD [address] [facility] [place] [address] Follow-up disposition: Return in about 3 months (around 02/16/2024). General Surgery Comment on above: Follow-up disposition: Return in about 3 months (around 02/16/2024). Start: 07-29-2024 End: 07-29-2024 Patient encounter procedure 07/29/2024 3:00 PM EDT Office Visit General Surgery [address] [place] [address] Fabian Brasher MD [address] [facility] [address] [place], [place] [phone] Follow-up disposition: Return in about 3 months (around 02/16/2024). General Surgery Comment on above: Follow-up disposition: Return in about 3 months (around 02/16/2024). Start: 07-27-2024 End: 07-27-2024 ambulatory 07/27/2024 1:15 PM EDT Results Only [facility] [address] [place] [address] [facility] Start: 07-27-2024 End: 07-27-2024 Patient encounter procedure 07/27/2024 8:20 AM EDT Appointment Radiology [address] [place], [place] [id number] MRI BREAST WO/W IVCON BILATERAL Radiology Comment on above: MRI BREAST WO/W IVCON BILATERAL Start: 07-25-2024 End: 10-24-2024 Choriogonadotropin.beta subunit [Units/volume] in Serum or Plasma [facility] Work Phone: Comment on above: Expected: 07/25/2024, Expires: Start: 07-18-2024 End: 07-18-2024 ambulatory 07/18/2024 12:45 PM EDT [facility] OB/Gynecology [address] [place], [place] [address] Darryl Ramirez APRN.HOME VISITOR [facility] [address] [place] [address] make cycle regular where I'm ovulating ever month OB/Gynecology Comment on above: make cycle regular where I'm ovulating e freddy month Start: 07-12-2024 End: 07-12-2024 FQHC visit new patient 07/12/2024 10:50 AM EDT Visit (SP) Office Hematology/Oncology [address] [address] [place] [address] [place] [address] New patient Hematology/Oncology Comment on above: New patient Start: 07-04-2024 End: 07-04-2024 Patient encounter procedure 07/04/2024 3:40 PM EDT Office Visit [facility] [address] [place] [address] Cooper Gastelum APRN.HOME VISITOR [facility] [address] [place], [place] [phone] 4 week follow up meds [facility] Comment on above: 4 week follow up meds Start: 06-30-2024 End: 06-30-2024 ambulatory 06/30/2024 10:30 AM EDT Procedure Obstetrics/Gynecology [address] [address] Menorrhagia with irregular cycle [N92.1] Obstetrics/Gynecology Comment on above: Menorrhagia with irregular cycle [N92.1] Start: 06-28-2024 End: 06-28-2024 Patient encounter procedure [facility] Comment on above: Follow Up exam NO IMAGING; 6 month follow up breast exam Start: 06-27-2024 End: 06-27-2025 aPTT in Platelet poor plasma by Coagulation assay ACTIVATED PARTIAL THROMBOPLASTIN TIME Lab Routine Excess skin Expected: 06/27/2024, Expires: 06/27/2025 [facility] Comment on above: Expected: 06/27/2024, Expires: Start: 06-27-2024 End: 06-27-2025 CBC W Auto Differential panel - Blood COMPLETE BLOOD COUNT AND DIFFERENTIAL Lab Routine Excess skin Expected: 06/27/2024, Expires: 06/27/2025 [facility] Work Phone: Comment on above: Expected: 06/27/2024, Expires: Start: 06-27-2024 End: 06-27-2025 Chronic hepatitis differentiation between hepatitis B and C virus panel - Serum or Plasma HEP REMOTE PANEL BL Lab Routine Excess skin Expected: 06/27/2024, Expires: 06/27/2025 [facility] Comment on above: Expected: 06/27/2024, Expires: Start: 06-27-2024 End: 06-27-2025 Comprehensive metabolic 2000 panel - Serum or Plasma COMPREHENSIVE METABOLIC PANEL Lab Routine Excess skin Expected: 06/27/2024, Expires: 06/27/2025 [facility] Comment on above: Expected: 06/27/2024, Expires: Start: 06-27-2024 End: 06-27-2025 ECG COMPLETE ECG COMPLETE ECG Routine Excess skin Expected: 06/27/2024, Expires: 06/27/2025 [facility] Comment on above: Expected: 06/27/2024, Expires: Start: 06-27-2024 End: 06-27-2025 Hemoglobin A1c in Blood HEMOGLOBIN A1C Lab Routine Excess skin Expected: 06/27/2024, Expires: 06/27/2025 [facility] Comment on above: Expected: 06/27/2024, Expires: Start: 06-27-2024 End: 06-27-2025 HEP ACUTE PANEL/RNA HEP ACUTE PANEL/RNA Lab Routine Excess skin Expected: 06/27/2024, Expires: 06/27/2025 [facility] Comment on above: Expected: 06/27/2024, Expires: Start: 06-27-2024 End: 06-27-2025 HIV 1+2 Ab [Presence] in Serum or Plasma by Immunoassay HIV 1/2 COMBO WITH REFLEX TO DIFFERENTIATION Lab Routine Excess skin Expected: 06/27/2024, Expires: 06/27/2025 [facility] Comment on above: Expected: 06/27/2024, Expires: Start: 06-27-2024 End: 06-27-2025 NICOTINE/COTININE NICOTINE/COTININE Lab STAT Excess skin Expected: 06/27/2024, Expires: 06/27/2025 [facility] Comment on above: Expected: 06/27/2024, Expires: Start: 06-27-2024 End: 06-27-2024 Patient encounter procedure 06/27/2024 2:00 PM EDT Office Visit Plastic Surgery [address] [address] Darlin Ling, MOBILITY ENGINEER.HOME VISITOR [facility] [address] [place] [address] excess skin after weight loss Plastic Surgery Comment on above: excess skin after weight loss Start: 06-27-2024 End: 06-27-2025 PT panel - Platelet poor plasma by Coagulation assay PROTHROMBIN TIME Lab Routine Excess skin Expected: 06/27/2024, Expires: 06/27/2025 [facility] Comment on above: Expected: 06/27/2024, Expires: Start: 06-12-2024 Covid-19 Vaccine ( season) Covid-19 Vaccine ( season) [facility] Start: 06-12-2024 Covid-19 Vaccine ( season) Covid-19 Vaccine ( season) [facility] Start: 06-12-2024 Influenza vaccination [facility] Start: 06-07-2024 End: 06-07-2024 Patient encounter procedure 06/07/2024 2:20 PM EDT Office Visit [facility] [address] [place] [phone] Cooper Gastelum, MOBILITY ENGINEER.HOME VISITOR [facility] [address] [place], [place] [phone] Follow up [facility] Comment on above: Follow up Start: 05-02-2024 End: 08-01-2024 Choriogonadotropin.beta subunit [Units/volume] in Serum or Plasma [facility] Comment on above: Expected: 05/02/2024, Expires: Start: 05-02-2024 End: 05-02-2025 US Pelvis PELVIC US [facility] Anc Imaging Routine Menorrhagia with irregular cycle Expected: 05/02/2024, Expires: 05/02/2025 [facility] Work Phone: Comment on above: Expected: 05/02/2024, Expires: 5 Start: 02-25-2024 End: 05-26-2024 ENTERIC BACTERIAL PANEL BY PCR [facility] Work Phone: Comment on above: Expected: 02/25/2024 (Approximate), Expi res: 05/26/2024 Start: 02-17-2024 End: 02-17-2024 Patient encounter procedure 02/17/2024 1:00 PM EDT Office Visit General Surgery [address] [id number] Fabian Brasher MD [address] [facility], [address] [place] [address] Follow-up disposition: Return in about 3 months (around 02/16/2024). General Surgery Comment on above: Follow-up disposition: Return in about 3 months (around 02/16/2024). Start: 11-27-2023 End: 02-26-2024 DHEA-S BLD DHEA-S BLD Lab Routine Menorrhagia with regular cycle Hirsutism Acne, unspecified acne type Expected: 11/27/2023, Expires: 02/26/2024 [facility] Work Phone: Comment on above: Expected: 11/27/2023, Expires: Start: 11-27-2023 End: 02-26-2024 Estradiol (E2) [Mass/volume] in Serum or Plasma ESTRADIOL-17B BLD Lab Routine Menorrhagia with regular cycle Hirsutism Acne, unspecified acne type Expected: 11/27/2023, Expires: 02/26/2024 [facility] Work Phone: Comment on above: Expected: 11/27/2023, Expires: Start: 11-27-2023 End: 02-26-2024 Follitropin [Units/volume] in Serum or Plasma FSH BLD Lab Routine Menorrhagia with regular cycle Hirsutism Acne, unspecified acne type Expected: 11/27/2023, Expires: 02/26/2024 [facility] Work Phone: Comment on above: Expected: 11/27/2023, Expires: 4 Start: 11-27-2023 End: 02-26-2024 Lutropin [Units/volume] in Serum or Plasma LUTEINIZING HORMONE Lab Routine Menorrhagia with regular cycle Hirsutism Acne, unspecified acne type Expected: 11/27/2023, Expires: 02/26/2024 [facility] Work Phone: Comment on above: Expected: 11/27/2023, Expires: 4 Start: 11-27-2023 End: 02-26-2024 Testosterone [Mass/volume] in Serum or Plasma TESTOSTERONE TOTAL Lab Routine Menorrhagia with regular cycle Hirsutism Acne, unspecified acne type Expected: 11/27/2023, Expires: 02/26/2024 [facility] Work Phone: Comment on above: Expected: 11/27/2023, Expires: 4 Start: 11-27-2023 End: 11-27-2024 US Pelvis PELVIC US WHI Anc Imaging Routine Menorrhagia with regular cycle Hirsutism Acne, unspecified acne type Expected: 11/27/2023, Expires: 11/27/2024 [facility] Work Phone: Comment on above: Expected: 11/27/2023, Expires: 5 Start: 11-24-2023 End: 11-24-2023 [facility] Start: 11-18-2023 [facility] Start: 10-12-2023 Behavioral Health Screening Behavioral Health Screening [facility] Start: 10-12-2023 Depression Assessment Depression Assessment [facility] Start: 08-20-2023 [facility] Start: 08-05-2023 End: 11-04-2023 CBC panel - Blood by Automated count CBC Lab Routine Pelvic floor dysfunction Expected: 08/05/2023 (Approximate), Expires: 11/04/2023 [facility] Work Phone: Comment on above: Expected: 08/05/2023 (Approximate), Expi res: 11/04/2023 Start: 08-05-2023 End: 11-04-2023 Comprehensive metabolic 2000 panel - Serum or Plasma COMP METABOLIC PANEL Lab Routine Pelvic floor dysfunction Expected: 08/05/2023, Expires: 11/04/2023 [facility] Work Phone: Comment on above: Expected: 08/05/2023, Expires: 4 Start: 07-22-2023 [facility] Start: 06-12-2023 Covid-19 Vaccine () Covid-19 Vaccine () [facility] Start: 06-12-2023 Influenza vaccination [facility] Start: 05-19-2023 Patient discharge [facility] Start: 05-18-2023 End: 05-18-2023 Following clinical pathway protocol [facility] Start: 05-18-2023 Ambulation without limitation [facility] Start: 05-18-2023 Measuring intake and output [facility] Start: 05-18-2023 Taking patient vital signs [facility] Start: 05-18-2023 [facility] Start: 05-18-2023 Urinalysis complete panel - Urine [facility] Start: 05-18-2023 Admission procedure [facility] Start: 04-30-2023 Suicide precautions [facility] Start: 03-19-2023 End: 05-19-2023 Bacteria identified in Urine by Culture URINE CULTURE Microbiology Routine Frequent UTI Expected: 03/19/2023, Expires: 05/19/2023 [facility] Work Phone: Comment on above: Expected: 03/19/2023, Expires: 3 Start: 11-06-2022 FUV, Provider: Darryl Rodirguez, Status: Pen, Time: 1:00 PM FUV, Provider: Darryl Rodriguez, Status: Pen, Time: 1:00 PM [employer] Work Phone: Start: 10-12-2022 DEPRESSION ASSESSMENT DEPRESSION ASSESSMENT [facility] Start: 09-09-2022 End: 11-09-2022 Comprehensive metabolic 2000 panel - Serum or Plasma COMP METABOLIC PANEL Lab Routine Weight gain Expected: 09/09/2022, Expires: 11/09/2022 [facility] Work Phone: Comment on above: Expected: 09/09/2022, Expires: 3 Start: 09-09-2022 End: 11-09-2022 Hemoglobin A1c in Blood HGB A1C Lab Routine Encounter for screening for diabetes mellitus Expected: 09/09/2022, Expires: 11/09/2022 [facility] Work Phone: Comment on above: Expected: 09/09/2022, Expires: 3 Start: 08-11-2022 FUV, Provider: Darryl Rodriguez, Status: Pen, Time: 10:20 AM FUV, Provider: Darryl Rodriguez, Status: Pen, Time: 10:20 AM [id number] Work Phone: Start: 06-12-2022 Influenza vaccination INFLUENZA (#1) [facility] Start: 2022 HPV Vaccine (1 - 3-dose SCDM series) HPV Vaccine (1 - 3-dose SCDM series) [facility] Start: 04-24-2022 End: 06-24-2022 Comprehensive metabolic 2000 panel - Serum or Plasma [facility] Work Phone: Comment on above: Expected: 04/24/2022, Expires: 2 Start: 04-24-2022 End: 06-24-2022 Thyrotropin [Units/volume] in Serum or Plasma [facility] Work Phone: Comment on above: Expected: 04/24/2022, Expires: 2 Start: 12-09-2021 End: 12-09-2021 Patient encounter procedure Appointment [facility] Work Phone: Start: 10-12-2021 DEPRESSION ASSESSMENT DEPRESSION ASSESSMENT [facility] Start: 06-24-2021 End: 06-24-2021 Patient encounter procedure 06/24/2021 Office Visit Gynecologic Oncology Yemi Ramirez MD [address] [place] [address] [phone] Post-operative state (Primary Dx) [facility] [employer] OPERATOR Oncology Comment on above: Post-operative state (Primary Dx) Start: 06-12-2021 Influenza vaccination Flu vaccine (#1) [facility] Work Phone: Start: 03-23-2018 Adult depression screening assessment DEPRESSION SCREENING [facility] Start: 02-10-2017 End: 02-11-2017 Follow Up Appt 2 weeks Follow Up Appt 2 weeks [facility] [employer] Work Phone: Start: 01-22-2017 End: 01-23-2017 Follow Up Appt Other Follow Up Appt Other [facility] [employer] Work Phone: Start: 01-08-2017 End: 01-08-2017 Follow Up Appt 2 weeks Follow Up Appt 2 weeks [facility] [employer] Work Phone: Start: 2016 PAP TESTING PAP TESTING [facility] Start: 2016 Screening for malignant neoplasm of cervix [facility] Work Phone: Start: 2014 Hepatitis B Vaccine (1 of 3 - 19+ 3-dose series) Hepatitis B Vaccine (1 of 3 - 19+ 3-dose series) [facility] Start: 2014 Urine microalbumin profile [facility] Start: 2013 Depression Screening Depression Screening [facility] Start: 2013 HEPATITIS C SCREENING HEPATITIS C SCREENING [facility] Start: 2013 HIV SCREENING HIV SCREENING [facility] Start: 06-25-2012 End: 07-04-2012 Bacteria identified in Throat by Culture *CUT - Throat Culture [facility] [employer] Work Phone: Start: 06-25-2012 End: 06-25-2012 Rapid strep test Rapid Strep (Office) [facility] [employer] Work Phone: Start: 03-02-2012 End: 03-02-2012 Follow Up Appt 1 month Follow Up Appt 1 month [facility] [employer] Work Phone: Start: 01-28-2012 End: 03-02-2012 Pulmonary Fuction Test - complete Pulmonary Fuction Test - complete [facility] [employer] Work Phone: Start: 2010 HIV screening HIV screen [facility] Work Phone: Start: 2009 PEDS TO ADULT TRANSITION ANNUAL ASSESSMENT PEDS TO ADULT TRANSITION ANNUAL ASSESSMENT [facility] Start: 2007 COVID-19 Vaccine (1) COVID-19 Vaccine (1) [facility] Work Phone: Start: 2007 PEDS TO ADULT TRANSITION INITIAL DISCUSSION PEDS TO ADULT TRANSITION INITIAL DISCUSSION [facility] Start: 2006 HPV vaccine (1 - 2-dose series) HPV vaccine (1 - 2-dose series) [facility] Start: 2001 Pneumococcal vaccination Pneumococcal Vaccine (1 of 2 - PCV) [facility] Start: 1996 Varicella vaccine (1 of 2 - 2-dose childhood series) Varicella vaccine (1 of 2 - 2-dose childhood series) [facility] Work Phone: Start: 1995 COVID-19 VACCINE (#1) COVID-19 VACCINE (#1) [facility] Start: 1995 HEPATITIS B (1 of 3 - 3-dose series) HEPATITIS B (1 of 3 - 3-dose series) [facility] Start: 1995 Hepatitis B Vaccine (1 of 3 - 3-dose series) Hepatitis B Vaccine (1 of 3 - 3-dose series) [facility] Start: 1995 Hepatitis C screening Hepatitis C screen [facility] Work Phone: ADULT MAINE ANORECTAL MANOMETRY ADULT MAINE ANORECTAL MANOMETRY Endoscopy Routine Pelvic floor dysfunction Rectal vaginal fistula 08/05/2023 [facility] Work Phone: Bacteria identified in Urine by Culture URINE CULTURE Microbiology Routine Pelvic pain 04/18/2023 3:24 PM EDT [facility] Work Phone: Bacteria identified in Urine by Culture URINE CULTURE Microbiology Routine Recurrent UTI 05/14/2023 11:38 AM EDT [facility] Work Phone: Bacteria identified in Urine by Culture [facility] Bacteria identified in Urine by Culture URINE CULTURE Microbiology Routine Suprapubic pressure Ordered: 05/11/2024 [facility] Work Phone: Comment on above: Ordered: 05/11/2024 Bacteria identified in Urine by Culture URINE CULTURE Microbiology Routine 7 weeks gestation of 08/18/2024 9:03 AM [facility] Bacteria identified in Urine by Culture URINE CULTURE Microbiology Routine Dysuria 09/19/2024 9:17 AM [facility] Work Phone: Bacteria identified in Urine by Culture BACTERIAL CULTURE, URINE Microbiology Routine Dysuria Ordered: 06/09/2025 [facility] Comment on above: Ordered: 06/09/2025 BACTERIAL VAGINOSIS NAAT BACTERI AL VAGINOSIS NAAT Lab Routine White vaginal discharge 06/23/2023 3:05 PM EDT [facility] Work Phone: BACTERIAL VAGINOSIS NAAT BACTERI AL VAGINOSIS NAAT Lab Routine Vaginal discharge Ordered: 05/11/2024 [facility] Comment on above: Ordered: 05/11/2024 BACTERIAL VAGINOSIS NAAT BACTERI AL VAGINOSIS NAAT Lab Routine Vaginal discharge 7 weeks gestation of 08/18/2024 9:03 AM [facility] BACTERIAL VAGINOSIS NAAT BACTERI AL VAGINOSIS NAAT Lab Routine Screening for STD (sexually transmitted disease) Ordered: 06/09/2025 [facility] Comment on above: Ordered: 06/09/2025 JOJO/TRICHOMONAS NAAT JOJO /TRICHOMONAS NAAT Lab Routine White vaginal discharge 06/23/2023 3:05 PM EDT [facility] Work Phone: JOJO/TRICHOMONAS NAAT JOJO /TRICHOMONAS NAAT Lab Routine Vaginal discharge 12/09/2023 1:02 PM EST [facility] Work Phone: JOJO/TRICHOMONAS NAAT JOJO /TRICHOMONAS NAAT Lab Routine Vaginal discharge Ordered: 05/11/2024 [facility] Comment on above: Ordered: 05/11/2024 JOJO/TRICHOMONAS NAAT JOJO /TRICHOMONAS NAAT Lab Routine Vaginal discharge 7 weeks gestation of 08/18/2024 9:03 AM EST [facility] JOJO/TRICHOMONAS NAAT JOJO /TRICHOMONAS NAAT Lab Routine Screening for STD (sexually transmitted disease) Ordered: 06/09/2025 [facility] Comment on above: Ordered: 06/09/2025 delivery on ly w/ care DELIVERY+ CARE Procedures Routine Gestational diabetes mellitus (GDM) requiring insulin (HCC) Ordered: 02/21/2025 [facility] Work Phone: Comment on above: Ordered: 02/21/2025 Chlamydia trachomatis+Neisseria gonorrhoeae DNA [Presence] in Unspecified specimen by SANJEEV with probe detection GONORRHEA/CHLAMYDIA NAAT Lab Routine White vaginal discharge 06/23/2023 3:05 PM EDT [facility] Work Phone: Chlamydia trachomatis+Neisseria gonorrhoeae DNA [Presence] in Unspecified specimen by SANJEEV with probe detection GONORRHEA/CHLAMYDIA NAAT Lab Routine Vaginal discharge 12/09/2023 1:02 PM EST [facility] Work Phone: Chlamydia trachomatis+Neisseria gonorrhoeae DNA [Presence] in Unspecified specimen by SANJEEV with probe detection GONORRHEA/CHLAMYDIA NAAT Lab Routine Vaginal discharge Ordered: 05/11/2024 [facility] Comment on above: Ordered: 05/11/2024 Chlamydia trachomatis+Neisseria gonorrhoeae DNA [Presence] in Unspecified specimen by SANJEEV with probe detection GONORRHEA/CHLAMYDIA NAAT Lab Routine 7 weeks gestation of 08/18/2024 9:03 AM [facility] Chlamydia trachomatis+Neisseria gonorrhoeae DNA [Presence] in Unspecified specimen by SANJEEV with probe detection GONORRHEA/CHLAMYDIA NAAT Lab Routine Screening for STD (sexually transmitted disease) Ordered: 06/09/2025 [facility] Work Phone: Comment on above: Ordered: 06/09/2025 COVID & INFLUENZA A/ B & RSV PCR, ROUTINE COVID & INFLUENZA A/B & RSV PCR, ROUTINE Microbiology Routine URI, acute 09/15/2024 1:31 PM EST [facility] Work Phone: End: 01-01-2024 Ct abdomen w/contrast material CT ABDOMEN W IVCON Radiology Routine Hernia of abdominal wall 1 Occurrences starting 12/02/2022 until 01/01/2024 [facility] Work Phone: Comment on above: 1 Occurrences starting 12/02/2022 until 01/01/2024 End: 06-09-2021 Culture, Urine Culture, Urine Microbiology STAT One Time for 1 Occurrences starting 06/09/2021 until 06/09/2021 [facility]: Comment on above: One Time for 1 Occurrences starting 05/13 until 06/09/2021 Culture, Urine Culture, Urine Microbiology STAT 06/09/2021 12:37 PM EDT [employer] Work Phone: End: 07-13-2025 ECG COMPLETE ECG COMPLETE ECG Routine History of syncope 1 Occurrences starting 07/13/2024 until 07/13/2025 [facility] Work Phone: Comment on above: 1 Occurrences starting 07/13/2024 until 07/13/2025 Excision excessive s kin & subq tissue abdomen ABDOMINOPLASTY UMBILICAL TRANSPOSITION AND FASCIAL PLICATION Excess skin [facility] Excision skin abd infraumbilical panniculectomy PANNICULECTOMY Excess skin [facility] nonstress test NON-S TRESS TEST Procedures Routine 29 weeks gestation of ([facility]) Decreased movements in second trimester, single or unspecified fetus ([facility]) Ordered: 01/20/2025 [facility] Work Phone: Comment on above: Ordered: 01/20/2025 End: 05-07-2025 nonstress test NON-STRESS TEST Procedures Routine Diet controlled gestational diabetes mellitus (GDM) in third trimester ([facility]) Supervision of high risk in third trimester ([facility]) Obesity affecting in second trimester, unspecified obesity type ([facility]) Once per week for 10 Occurrences starting 02/06/2025 until 05/07/2025 [facility] Work Phone: Comment on above: Once per week for 10 Occurrences startin g 02/06/2025 until 05/07/2025 GEST GLUC LOLA, 3-HR, 100 GM, FASTING GEST GLUC LOLA, 3-HR, 100 GM, FASTING Lab Routine Elevated glucose tolerance test 12/30/2024 7:58 AM EDT [facility] Insertion intrauteri ne device iud INSERT INTRAUTERINE DEVICE Procedures Routine Encounter for initial prescription of intrauterine contraceptive device (IUD) Ordered: 05/08/2025 [facility] Work Phone: Comment on above: Ordered: 05/08/2025 End: 07-28-2025 MR Breast - bilateral WO and W contrast IV MRI BREAST WO/W IVCON BILATERAL Radiology Routine Discharge from both nipples Fibrocystic breast changes of both breasts Family history of breast cancer 1 Occurrences starting 06/28/2024 until 07/28/2025 [facility] Work Phone: Comment on above: 1 Occurrences starting 06/28/2024 until 07/28/2025 End: 09-22-2024 Mri abdomen w/o & w/contrast material MRI LIVER WO/W IVCON Radiology Routine Liver lesion 1 Occurrences starting 08/24/2023 until 09/22/2024 [facility] Work Phone: Comment on above: 1 Occurrences starting 08/24/2023 until 09/22/2024 End: 04-07-2025 OBSTETRIC ULTRASOUND WHI OBSTETRIC ULTRASOUND WHI Anc Imaging Routine Obesity affecting in second trimester, unspecified obesity type History of maternal fourth degree perineal laceration, currently Once per month for 6 Occurrences starting 11/15/2024 until 04/07/2025 [facility] Work Phone: Comment on above: Once per month for 6 Occurrences startin g 11/15/2024 until 04/07/2025 End: 04-01-2025 OBSTETRIC ULTRASOUND WHI OBSTETRIC ULTRASOUND WHI Anc Imaging Routine Diet controlled gestational diabetes mellitus (GDM) in third trimester Once per month for 5 Occurrences starting 12/30/2024 until 04/01/2025 [facility] Work Phone: Comment on above: Once per month for 5 Occurrences startin g 12/30/2024 until 04/01/2025 Oxygen therapy [[facility] Data Set] Initiate Oxygen Therapy Protocol Respiratory Care Routine Daily until discontinued starting 05/16/2021 [facility] Work Phone: Comment on above: Daily until discontinued starting 2020 Patient Education \cps-sql1\CPS_ PtEducatio n\[facility]_FALL_PREVENTION.pd f [facility] Work Phone: Patient Education [facility] Work Phone: Patient referral [facility] Work Phone: REFER FOR ADMIT INTERVIEW REFER FOR ADMIT INTERVIEW Procedures Routine Pelvic floor dysfunction Ordered: 07/28/2023 [facility] Work Phone: Comment on above: Ordered: 07/28/2023 ROUTINE, GR OUP B STREPTOCOCCUS BY PCR ROUTINE, GROUP B STREPTOCOCCUS BY PCR Microbiology Routine Supervision of high risk in third trimester ([facility]) Ordered: 03/07/2025 [facility] Work Phone: Comment on above: Ordered: 03/07/2025 End: 05-16-2021 Surgical Pathology Surgical Pathology Lab Routine Once for 1 Occurrences starting 05/16/2021 until 05/16/2021 [facility] Work Phone: Comment on above: Once for 1 Occurrences starting 05/16/20 until 05/16/2021 Surgical Pathology Surgical Path ology Lab Routine 05/16/2021 8:55 AM EDT [facility] Work Phone: UA DIP, URINE (POC) UA DIP, URIN E (POC) Lab Routine Dysuria Ordered: 06/09/2025 [facility] Comment on above: Ordered: 06/09/2025 URINE OB DIP B/O URINE OB DIP B/ O Lab Routine Supervision of high risk in third trimester ([facility]) Diet controlled gestational diabetes mellitus (GDM) in third trimester ([facility]) History of maternal fourth degree perineal laceration, currently ([facility]) Obesity affecting in second trimester, unspecified obesity type ([facility]) Ordered: 02/15/2025 [facility] Work Phone: Comment on above: Ordered: 02/15/2025 [facility] pelvic nonobstetr ic image dcmtn limited/f/u US FEMALE PELVIS TRANSABD LTD Radiology Routine Complication of intrauterine device (IUD), unspecified complication, initial encounter ([facility]) 08/21/2023 3:46 PM EST [facility] Work Phone: Us transvaginal US FEMALE PELVIS TRANSVAG Radiology Routine Complication of intrauterine device (IUD), unspecified complication, initial encounter ([facility]) 08/21/2023 3:46 PM [facility] Work Phone: End: 06-09-2021 VAGINAL PATHOGENS DNA PANEL VAGINAL PATHOGENS DNA PANEL Microbiology STAT One Time for 1 Occurrences starting 06/09/2021 until 06/09/2021 [facility] Work Phone: Comment on above: One Time for 1 Occurrences starting 05/13 until 06/09/2021 VAGINAL PATHOGENS DN A PANEL VAGINAL PATHOGENS DNA PANEL Microbiology STAT 06/09/2021 1:23 PM EDT [facility] Work Phone: [facility] Immunizations Immunization Date Immunization Notes Care Provider Fa cili 01-10-2025 tetanus toxoid, redu shoshana diphtheria toxoid, and acellular pertussis vaccine, adsorbed i Mob [facility] 04-27-2021 tetanus toxoid, redu shoshana diphtheria toxoid, and acellular pertussis vaccine, adsorbed [facility] 04-23-2021 tetanus toxoid, redu shoshana diphtheria toxoid, and acellular pertussis vaccine, adsorbed [facility] 04-10-2017 tetanus toxoid, redu shoshana diphtheria toxoid, and acellular pertussis vaccine, adsorbed [facility] DO [facility] Payers Date Payer Category Payer Self-pay [id number] 2022 Unknown [id number] 2021 Unknown 2021 Unknown [id number] 2021 Unknown [id number] 2021 Medicaid [place] [employer] [employer] [id number] 2021-[facility] [phone] [address] [place] [address] Medicaid [id number] 2017 Medicaid [id number] 2016 Unknown [id number] [id number] 1995 Unknown [id number] 2.840.1.737237.3.579.2.356 1995 Unknown [id number] 2.16840.1.120775.3.579.2.356 1995 Unknown [id number] 2.16840.1.490781.3.579.2.356 1995 Unknown [id number] 2.16840.1.478101.3.579.2.356 1995 Unknown [id number] 2.16840.1.322677.3.579.2.627 1995 Unknown [id number] 2.16840.1.797162.3.579.2.627 1995 Unknown [id number] 2.16840.1.716164.3.579.2. 1995 Unknown [id number] 2.840.1.741299.3.579.2.62 1995 Unknown [id number] 2.840.1.271033.3.579.2. 1995 Unknown [id number] 2.840.1.528680.3.579.2. 1995 Unknown [id number] 2.840.1.582132.3.579.2. 1995 Unknown [id number] 2.840.1.661703.3.579.2. 1995 Unknown [id number] 2.840.1.420117.3.579.2. 1995 Unknown [id number] 2.840.1.218067.3.579.2. 1995 Unknown [id number] 2840.1.189255.3.579.2. 1995 Unknown [id number] 2840.1.982679.3.579.2. 1995 Unknown [id number] 284.1.594804.3.579.2. 1995 Unknown [id number] 2840.1.686616.3.579.2. 1995 Unknown [id number] 840.1.222642.3.579.2. 1995 Unknown [id number] 840.1.460839.3.579.2. 1995 Unknown [id number] 840.1.655439.3.579.2.651 Unknown [id number] 840.1.460651.3.579.2.462 Unknown [id number] 2840.1.412860.3.579.2.462 Unknown [id number] 2.16.840.1.419182.3.579.2.462 Unknown [id number] 2.16.840.1.582712.3.579.2.462 Unknown [id number] 2.16.840.1.196605.3.579.2.462 Unknown [id number] 2.16.840.1.549235.3.579.2.462 Unknown [id number] 2.16.840.1.667178.3.579.2.462 Unknown [id number] 2.16.840.1.260124.3.579.2.462 Unknown [id number] 2.16.840.1.828698.3.579.2.462 Social History Date Type Detail Facility Start: 05-16-2021 End: 08-17-2024 Tobacco smoking status [facility] Former smoker [facility] Work Phone: End: 05-16-2017 History of tobacco use Current smoker [facility] Start: 05-16-2021 End: 08-17-2024 Tobacco use and exposure Never used [facility] Start: 05-16-2021 End: 06-09-2025 Alcohol intake Ex-drinker (finding) [facility] Work Phone: Start: 1995 Sex Assigned At Not on file [facility] Work Phone: Start: 11-29-2020 End: 07-02-2022 Exposure to SARS-CoV-2 (event) Not sure [facility] Start: 07-25-2021 Never smoked t obacco (finding) [facility] Sex Assigned At [facility] Start: 04-30-2023 End: 11-24-2023 Assertion Unknown if ever smoked [facility] Work Phone: History of tobacco use Cigarette Smoker [facility] Start: 12-29-2020 End: 04-24-2022 Alcohol intake Current non-drinker of alcohol (finding) [facility] Start: 05-26-2017 End: 05-22-2022 Tobacco Comment 5 to 6 cigarettes [facility] Start: 09-07-2022 History SDOH Alcohol Frequency 2 [facility] Start: 09-07-2022 History SDOH Alcohol Std Drinks 1 [facility] Start: 09-07-2022 History SDOH Social Connections Phone 5 [facility] Start: 09-07-2022 History SDOH Social Connections Living 3 [facility] Start: 09-07-2022 History SDOH Physica l Activity DPW 0 [facility] Start: 09-07-2022 End: 02-24-2023 History of Social function [facility] Start: 09-07-2022 End: 02-24-2023 Social connection and isolation panel [facility] Do you belong to any clubs or organizations such as zoroastrian groups, unions, fraternal or athletic groups, or school groups? No [facility] Are you now , , , , never or living with a partner? [facility] How often to you hav e a drink containing alcohol? Monthly or less [facility] How many standard drinks containing alcohol do you have on a typical day? 1 or 2 [facility] How often do you hav e 6 or more drinks on 1 occasion? Never [facility] Start: 09-12-2012 How hard is it for y ou to pay for the very basics like food, housing, medical care, and heating Not hard at all [facility] Do you feel stress - tense, restless, nervous, or anxious, or unable to sleep at night because your mind is troubled all the time - these days [OSQ] To some extent [facility] (I/We) worried ant er (my/our) food would run out before (I/we) got money to buy more. Never true [facility] Start: 09-16-2020 None [facility] Start: 09-16-2020 Spouse/ Signif icant Other [facility] Start: 04-05-2020 Non-smoker [facility] Start: 1995 Sex Assigned At Female W [facility] Start: 07-29-2023 Gender identity Identifies as female gender (finding) [facility] Start: 07-29-2023 Sexual orientation Heterosexua l (finding) [facility] Start: 10-01-2023 End: 06-25-2024 Tobacco smoking status NHIS Occasional tobacco smoker [facility] Work Phone: Start: 10-28-2023 End: 07-25-2024 Alcohol intake Current drinker of alcohol (finding) [facility] Start: 10-01-2023 Tobacco Comment Stopped smokin g cigarettes, just uses vape now [facility] Start: 10-01-2023 Alcohol Comment monthly [facility] Are you now , , , , never or living with a partner? Refused [facility] (I/We) worried whenellie er (my/our) food would run out before (I/we) got money to buy more. DK or Refused [facility] Are you now , , , , never or living with a partner? [facility] Do you feel stress - tense, restless, nervous, or anxious, or unable to sleep at night because your mind is troubled all the time - these days [OSQ] Only a little [facility] Start: 08-17-2024 Education 13 [facility] Start: 08-17-2024 Tobacco Comment Stopped smokin g cigarettes, [facility] Start: 07-09-2024 [facility] Start: 01-05-2025 End: 01-09-2025 Sex Female (finding) [facility] NEGATED: Highlighted row [facility] Medical Equipment Procedure Code Equipment Code Equipment Origin al Text Equipment Identifier Dates Robotic Assisted Laparoscopic Ventral He Unknown 10/01/22 Unknown Unknown [facility] Start: 10-01-2022 Robotic Assisted Laparoscopic Ventral He Unknown 10/01/22 Unknown Unknown [facility] Start: 10-01-2022 Robotic Assisted Laparoscopic Ventral He Unknown 10/01/22 Unknown Unknown [facility] Start: 10-01-2022 Use as directed to check glucose levels up to seven times daily. [id number] Start: 12-30-2024 End: 03-24-2025 Use as directed to check glucose levels up to seven times daily. [id number] Start: 12-30-2024 End: 03-24-2025 Goals Date Patient Goal Desired Activity /State Personal health goal Personal health goal Functional Status Date Assessment Result Facility 03-25-2025 Are you deaf, or do you have serious difficulty hearing No 03/25/2025 1:25 PM EDT Armando Barahona RN No [facility] 03-25-2025 Are you blind, or do you have serious difficulty seeing, even when wearing glasses No 03/25/2025 1:25 PM EDT Armando Barahona RN No [facility] 03-25-2025 Do you have serious difficulty walking or climbing stairs No 03/25/2025 1:25 PM EDT Armando Barahona RN No [facility] 03-25-2025 Do you have difficul ty dressing or bathing No 03/25/2025 1:25 PM EDT Armando Barahona RN No [facility] 03-25-2025 Because of a physica l, mental, or emotional condition, do you have difficulty doing errands alone such as visiting a physician's office or shopping No 03/25/2025 1:25 PM EDArmando Herrera RN No [facility] 05-19-2023 Functional status Ambulates [facility] Work Phone: 05-18-2023 Functional status Tolerates Activity Fair [facility] Work Phone: 10-01-2022 Functional Status Awake [facility] 10-01-2022 Functional Status [facility] 10-01-2022 Functional Status Maintained [facility] 02-14-2022 Functional Status [facility] 02-14-2022 Functional Status [facility] 02-14-2022 Functional Status [facility] 02-13-2022 Functional Status [facility] 02-13-2022 Functional Status [facility] 02-13-2022 Functional Status [facility] 02-13-2022 Functional Status [facility] 02-13-2022 Functional Status [facility] 02-12-2022 Functional Status [facility] 02-12-2022 Functional Status [facility] 02-12-2022 Functional Status [facility] 02-11-2022 Functional Status [facility] 02-11-2022 Functional Status [facility] 02-10-2022 Functional Status [facility] 02-10-2022 Functional Status [facility] Mental Status Date Assessment Result Facility 03-25-2025 Because of a physica l, mental, or emotional condition, do you have serious difficulty concentrating, remembering, or making decisions No 03/25/2025 1:25 PM EDT Armando Barahona RN No [facility] 11-18-2023 Cognitive function Voice/Name [facility] Work Phone: 05-19-2023 Cognitive function Voice/Name [facility] Work Phone: 10-01-2022 Mental Status Oriented x 4 [facility] 10-01-2022 Mental Status [facility] 02-14-2022 [facility] Status [facility] 02-12-2022 [facility] Clinical Notes 12-29-2020 to 06-09-2025 Mauro Love PA - 06/09/2025 10:52 AM EDTPatient Felicity Montana APRN.HOME VISITOR [facility] - 05/10/2025 2:58 PM EDTTelephone Encounter - Lenin Decker RN - 05/09/2025 10:01 AM EDT Note Date & Type Note Facility 06-09-2025 Note HNO ID: [id number] Author: MAURO LOVE PA Service: ? Author Type: Physician Supervisor [employer] Type: Progress Notes Filed: 06/09/2025 10:52 Note Text: URGENT CARE VIRAL Zamora is a 30 year old female. Patient presents with: UTI STD HPI The patient is a 30-year-old female, 3 months , presenting with concerns of a possible UTI or infection, and requesting STD testing. Possible UTI or Infection: - Reports a burning sensation in the body cavity every morning upon waking. - Denies fever, emesis, or dysuria. - Observes a milky green discharge. - Denies abdominal pain. - No IUD placement yet; denies being on pelvic rest. - Denies concern for new . Review of Systems Constitutional: (-) fever Gastrointestinal: (-) vomiting Genitourinary: (+) pelvic burning sensation, (-) dysuria, (-) pelvic pain Objective BP 128/72 Pulse 90 Temp 36.6 ?C (97.9 ?F) (Tympanic) Resp 16 Wt 116.6 kg (257 lb 0.9 oz) LMP 05/03/2025 (Exact Date) SpO2 99% BMI 47.02 kg/m? Physical Exam General: Not in acute distress, normal appearance, well-developed, not toxic-appearing HEENT - Oropharynx: Mucous membranes moist, oropharynx clear, uvula midline Cardiovascular - Rate/Rhythm: Normal rate and regular rhythm - Heart Sounds: Normal heart sounds Pulmonary - Lung Sounds: Normal breath sounds - Respiratory Effort: Pulmonary effort normal Neurologic - Mental Status: Alert Skin: Skin warm and dry Abdomen soft and nontender no CVA tenderness Genitourinary - Deferred. Patient self swabs { 1. Screening for STD (sexually transmitted disease) (Z11.3) 2. Dysuria (R30.0) - No dysuria or fever reported; UA normal - Milky, green vaginal discharge noted; patient requests STD testing. - Urine culture ordered to rule out UTI. - Self-swab specimens collected for STD testing- gonorrhea, chlamydia, trichomonas, yeast and BV. - Results will be communicated via MyChart or phone within 1-2 days. Recording using [employer] software for draft documentation of the visit was discussed with the patient/authorized insurance sales representative; all questions welcomed and answered. Patient/authorized insurance sales representative agreed to proceed History and Record Review External record(s) reviewed: prior outpatient record. Differential Diagnoses - Vaginitis is more likely for the following reason(s): suggested by HANDP - UTI is less likely for the following reason(s): HANDP not suggestive and laboratory studies not suggestive Disposition The patient was discharged. Procedures [facility] 06-09-2025 History of Presen t illness Narrative URGENT CARE VIRAL Zamora is a 30 year old female. Patient presents with: UTI STD HPI The patient is a 30-year-old female, 3 months , presenting with concerns of a possible UTI or infection, and requesting STD testing. Possible UTI or Infection: - Reports a burning sensation in the body cavity every morning upon waking. - Denies fever, emesis, or dysuria. - Observes a milky green discharge. - Denies abdominal pain. - No IUD placement yet; denies being on pelvic rest. - Denies concern for new . Review of Systems Constitutional: (-) fever Gastrointestinal: (-) vomiting Genitourinary: (+) pelvic burning sensation, (-) dysuria, (-) pelvic pain Objective BP 128/72 Pulse 90 Temp 36.6 C (97.9 F) (Tympanic) Resp 16 Wt 116.6 kg (257 lb 0.9 oz) LMP 05/03/2025 (Exact Date) SpO2 99% BMI 47.02 kg/m Physical Exam General: Not in acute distress, normal appearance, well-developed, not toxic-appearing HEENT - Oropharynx: Mucous membranes moist, oropharynx clear, uvula midline Cardiovascular - Rate/Rhythm: Normal rate and regular rhythm - Heart Sounds: Normal heart sounds Pulmonary - Lung Sounds: Normal breath sounds - Respiratory Effort: Pulmonary effort normal Neurologic - Mental Status: Alert Skin: Skin warm and dry Abdomen soft and nontender no CVA tenderness Genitourinary - Deferred. Patient self swabs { 1. Screening for STD (sexually transmitted disease) (Z11.3) 2. Dysuria (R30.0) - No dysuria or fever reported; UA normal - Milky, green vaginal discharge noted; patient requests STD testing. - Urine culture ordered to rule out UTI. - Self-swab specimens collected for STD testing- gonorrhea, chlamydia, trichomonas, yeast and BV. - Results will be communicated via MyChart or phone within 1-2 days. Recording using [employer] software for draft documentation of the visit was discussed with the patient/authorized insurance sales representative; all questions welcomed and answered. Patient/authorized insurance sales representative agreed to proceed History and Record Review External record(s) reviewed: prior outpatient record. Differential Diagnoses - Vaginitis is more likely for the following reason(s): suggested by H&P - UTI is less likely for the following reason(s): H&P not suggestive and laboratory studies not suggestive Disposition The patient was discharged. Procedures documented in this encounter [facility] 05-10-2025 Instructions Felicity Zuleta APRN.CNP - 05/10/2025 3:12 PM EDT - Apply an ice pack to your wrist for 20 minutes, then remove it for 20 minutes; repeat several times a day as needed for pain and swelling. - Can take Ibuprofen as needed with food - Avoid putting pressure on, bumping, or sleeping on the affected area so the vein can heal. - Allow the discoloration to reabsorb naturally over time without additional treatment. - If your symptoms worsen--such as increased pain or size--or you notice new changes, contact your primary care provider for follow-up. documented in this encounter [facility] 05-10-2025 Note HNO ID: [id number] Author: FELICITY ZULETA APRN.CNP Service: ? Author Type: Nurse Practitioner Type: Progress Notes Filed: 05/10/2025 15:13 Note Text: Telemedicine Visit - Distance Health Virtual Visit Note Patient seen on [employer] [facility] through Zoom Video Visit Location of patient: [place] Person(s) present on virtual visit: Patient Subjective The patient is a 30-year-old female presenting for evaluation of a persistent bubble on the right wrist with associated paresthesia and cold sensation. Right Wrist Vein Abnormality: - Noticed a bubble on the right wrist following IV placement during childbirth on 03/23. - Bubble has increased slightly in size and remains ecchymotic. - Onset of paresthesia and cold sensation in the right hand began approximately one week ago. - Symptoms occur multiple times daily, exacerbated by pressure on the wrist, wearing a hair tie, using a phone, cooking, and driving. - Denies similar symptoms prior to one week ago. - Denies pruritus, dyspnea, chest pain, or fever. - Denies significant pain unless pressure is applied to the area. - Denies radiation of symptoms to fingers. - Denies current . - Not . - Denies taking any medications routinely. Constitutional: (-) fever Cardiovascular: (-) chest pain Respiratory: (-) dyspnea Musculoskeletal: (+) right wrist pain, (+) right wrist weakness Skin: (+) right wrist ecchymosis, (+) right wrist swelling, (-) pruritus Neurological: (+) right hand paresthesia, (+) right hand numbness, (+) right wrist burning sensation, (+) right hand cold sensation Objective Last menstrual period 05/03/2025, not currently . General: Well-appearing. MSK/Ext: Right dorsal hand with 1-2 mm purplish discoloration, slightly elevated, mild pain to self-palpation, capillary refill less than 3 seconds, negative Phalen's test bilaterally. Patient points to a few inches surronding discoloration as area of pain. Skin otherwise WNL. Assessment AND Plan 1. Superficial thrombophlebitis of right upper extremity (I80.8) - History of IV placement on March 23 with persistent raised, purplish discoloration on right dorsal wrist; symptoms of paresthesia, burning, and cold sensation began approximately one week ago, occurring multiple times daily and exacerbated by pressure. - Physical exam notable for 1-2 mm purple discoloration, mild tenderness to palpation, and quick capillary refill; negative Phalen's test bilaterally. - Unlikely carpal tunnel syndrome or deeper wrist pathology. - Advised conservative management: avoid pressure or trauma to affected area, apply ice packs to site 20 minutes on/20 minutes off as needed for discomfort. - Ibuprofen as needed with food - Educated that lesion likely requires additional time for resolution - Instructed to follow up with PCP if symptoms worsen or become more painful. Recording using [employer] software for draft documentation of the visit was discussed with the patient/authorized insurance sales representative; all questions welcomed and answered. Patient/authorized insurance sales representative agreed to proceed Disposition The patient was discharged. OTC Medications were advised: Ibuprofen PRN - All questions answered. Patient and/or caregiver verbalized understanding and comfortable with plan. I have communicated my name and active licensure. The patient's identity and physical location were verified at the time of this visit. Either the patient or their legal insurance sales representative has been informed of the risks and benefits of -- and alternatives to -- treatment through a remote evaluation and consents to proceed with the evaluation remotely. Felicity Zuleta APRN.[facility] 05-10-2025 History of Presen t illness Narrative Telemedicine Visit - Distance Health Virtual Visit Note Patient seen on [facility] [facility] through Zoom Video Visit Location of patient: [place] Person(s) present on virtual visit: Patient Subjective The patient is a 30-year-old female presenting for evaluation of a persistent bubble on the right wrist with associated paresthesia and cold sensation. Right Wrist Vein Abnormality: - Noticed a bubble on the right wrist following IV placement during childbirth on 03/23. - Bubble has increased slightly in size and remains ecchymotic. - Onset of paresthesia and cold sensation in the right hand began approximately one week ago. - Symptoms occur multiple times daily, exacerbated by pressure on the wrist, wearing a hair tie, using a phone, cooking, and driving. - Denies similar symptoms prior to one week ago. - Denies pruritus, dyspnea, chest pain, or fever. - Denies significant pain unless pressure is applied to the area. - Denies radiation of symptoms to fingers. - Denies current . - Not . - Denies taking any medications routinely. Constitutional: (-) fever Cardiovascular: (-) chest pain Respiratory: (-) dyspnea Musculoskeletal: (+) right wrist pain, (+) right wrist weakness Skin: (+) right wrist ecchymosis, (+) right wrist swelling, (-) pruritus Neurological: (+) right hand paresthesia, (+) right hand numbness, (+) right wrist burning sensation, (+) right hand cold sensation Objective Last menstrual period 05/03/2025, not currently . General: Well-appearing. MSK/Ext: Right dorsal hand with 1-2 mm purplish discoloration, slightly elevated, mild pain to self-palpation, capillary refill less than 3 seconds, negative Phalen's test bilaterally. Patient points to a few inches surronding discoloration as area of pain. Skin otherwise WNL. Assessment & Plan 1. Superficial thrombophlebitis of right upper extremity (I80.8) - History of IV placement on March 23 with persistent raised, purplish discoloration on right dorsal wrist; symptoms of paresthesia, burning, and cold sensation began approximately one week ago, occurring multiple times daily and exacerbated by pressure. - Physical exam notable for 1-2 mm purple discoloration, mild tenderness to palpation, and quick capillary refill; negative Phalen's test bilaterally. - Unlikely carpal tunnel syndrome or deeper wrist pathology. - Advised conservative management: avoid pressure or trauma to affected area, apply ice packs to site 20 minutes on/20 minutes off as needed for discomfort. - Ibuprofen as needed with food - Educated that lesion likely requires additional time for resolution - Instructed to follow up with PCP if symptoms worsen or become more painful. Recording using [employer] software for draft documentation of the visit was discussed with the patient/authorized insurance sales representative; all questions welcomed and answered. Patient/authorized insurance sales representative agreed to proceed Disposition The patient was discharged. OTC Medications were advised: Ibuprofen PRN - All questions answered. Patient and/or caregiver verbalized understanding and comfortable with plan. I have communicated my name and active licensure. The patient's identity and physical location were verified at the time of this visit. Either the patient or their legal insurance sales representative has been informed of the risks and benefits of -- and alternatives to -- treatment through a remote evaluation and consents to proceed with the evaluation remotely. Felicity Zuleta APRN.CNP documented in this encounter [facility] 05-09-2025 Telephone encounter Note Mirena insertion order was filed under office visit encounter today. Linked to upcoming appt. Lenin Decker RN [facility] 05-09-2025 Miscellaneous Notes Mirena insertion order was filed under office visit encounter today. Linked to upcoming appt. Lenin Decker RN See note below. Did you discuss this at her visit today? Order pending. Lenin Decker RN Patient is requesting IUD. Please assist in advice thank you documented in this encounter [facility] 05-08-2025 Telephone encounter Note See note below. Did you discuss this at her visit today? Order pending. Lenin Decker RN [facility] 05-08-2025 Telephone encounter Note Patient is requesting IUD. Please assist in advice thank you [facility] 05-08-2025 Note HNO ID: [id number] Author: MARIETTA LUGO MD Service: ? Author Type: Physician Type: Progress Notes Filed: 05/08/2025 23:00 Note Text: VISIT Leelee Zamora is a 30 year old year old here for visit. Delivery Summary: Baby released from the hospital today - failure to thrive Doing ok with baby blues. Bottle feeding. ROS/ Recovery: Feeding: Bottle feeding problems: failure to thrive Menses since delivery: spotting Menstrual pattern prior to : Regular periods [place] since delivery: Not resumed Depression: denies symptoms of depression. Some anxiety OB Depression and Anxiety Screening- This Encounter Feeling down, depressed, or hopeless: Not at all Little interest or pleasure in doing things: Not at all Feeling nervous, anxious, or on edge Several days Not being able to stop or control worrying Not at all Anxiety Pre-Screening Total (If >/= 3 additional questions will be reviewed) 1 Emotional support: Yes Bowel symptoms: No nausea, vomiting, or diarrhea, No heartburn or reflux symptoms, Negative for abdominal discomfort, blood in stools or black stools, and change in bowel habits Abdomen: little redness Bladder symptoms: No dysuria, gross hematuria, urinary frequency, urinary urgency, or incontinence Other issues: None Last Pap: 2022 normal HPV: N/A PAST MEDICAL HISTORY Diagnosis Date Acute deep vein thrombosis (DVT) of popliteal vein of right lower extremity ([facility]) 02/2022 ADHD (attention deficit hyperactivity disorder) Allergic rhinitis, unspecified 12/16/2018 Bowel obstruction ([facility]) 2022 Chlamydia Diabetes, gestational ([facility]) Encounter for insertion of Mirena IUD 12/24/2021 Ex-smoker 12/16/2018 Started at age 19 up to 1/2-1 PPD, quit 05/2018 SAMAN (generalized anxiety disorder) 12/16/2018 [facility]. History of chlamydia 16 YO History of gastroesophageal reflux (GERD) 12/16/2018 History of maternal fourth degree perineal laceration, currently ([facility]) 08/18/2024 History of morbid obesity Infertility, female Menorrhagia 04/06/2020 had DX hysteroscopy and DANDC PCOS (polycystic ovarian syndrome) Psoriasis 12/16/2018 Vitamin D deficiency 12/16/2018 PAST SURGICAL HISTORY Procedure Laterality Date SECTION HX 03/23/2025 CYST EXCISION 2017 right leg DANDC, DIAG AND/OR THERAPEUTIC 2019 EXTRACTION, ERUPTED TOOTH OR EXPOSED ROOT (ELEVATION AND/OR FORCEPS REMOVAL) 2013 LAPS SURG CHOLECYSTECTOMY W/CHOLANGIOGRAPHY 10/14/2023 Dr. Macdonald LOCAL REVISION OF ILESTOMY 02/24/2022 LYSIS OF ADHESIONS 10/14/2023 Dr. Macdonald PAST SURGICAL HISTORY OF multiplr vaginoplasty- RV fistual after FAVD AND 4th degree REMOVAL GALLBLADDER 10/14/2023 REPAIR INCISIONAL HERNIA,REDUCIBLE incisional hernia and umbilical hernia repair FAMILY HISTORY Problem Relation Age of Onset Heart disease Mother arythmia Diabetes Father Hypertension Father No Known Problems Sister No Known Problems Sister Kidney Disease Maternal Grandmother other (lupus) Maternal Grandmother Stroke Maternal Grandmother Heart Attack Maternal Grandmother Blood Clots Maternal Grandmother No Known Problems Maternal Grandfather Colon Cancer Paternal Grandmother late 50's Coronary Artery Disease Paternal Grandmother 40's Diabetes Paternal Grandmother Hypertension Paternal Grandmother Diabetes Paternal Grandfather Hypertension Paternal Grandfather Thyroid Cancer Paternal Aunt 52 Cervical Cancer Paternal Aunt Uterine Cancer Paternal Aunt Breast Cancer Paternal Aunt 20 - 29 Ovarian cancer Paternal Aunt 20 - 29 Thyroid Cancer Paternal Aunt 19 resolved Breast Cancer Paternal Aunt 20 - 29 Alzheimer's Disease No Family History Hyperlipidemia No Family History Thyroid No Family History Seizures No Family History Social History Tobacco Use Smoking status: Former Types: Cigarettes Smokeless tobacco: Never Tobacco comments: Stopped smoking cigarettes, Vaping Use Vaping status: Former Start date: 05/25/2024 Substances: Nicotine, Flavoring Devices: Disposable Substance Use Topics Alcohol use: Not Currently Alcohol/week: 1.0 standard drink of alcohol Types: 1 Cans of beer per week Comment: monthly Drug use: No PHYSICAL EXAMINATION: SENSITIVE EXAM: Sensitive exam not performed. BP 126/84 Ht 5' 2 (1.58m) Wt 262 lb (118.8kg) LMP 05/03/2025 BMI 47.91 kg/(m2). GENERAL: pleasant, female in no apparent distress HEENT: Normocephalic, atraumatic, mucus membranes moist, and no lesions NECK: Supple, full range of motion, and no adenopathy DERMATOLOGY: Normal, without lesions, non-icteric, and non-hirsute BREAST: deferred CHEST: Normal inspiratory effort ABDOMEN: soft, non-tender, and no masses. INCISION: No incisional redness, swelling, or drainage PELVIC: deferred BIMANUAL: (more content not included)... [facility] 05-08-2025 History of Presen t illness Narrative VISIT Leelee Zamora is a 30 year old year old here for visit. Delivery Summary: Baby released from the hospital today - failure to thrive Doing ok with baby blues. Bottle feeding. ROS/ Recovery: Feeding: Bottle feeding problems: failure to thrive Menses since delivery: spotting Menstrual pattern prior to : Regular periods [place] since delivery: Not resumed Depression: denies symptoms of depression. Some anxiety OB Depression and Anxiety Screening- This Encounter Feeling down, depressed, or hopeless: Not at all Little interest or pleasure in doing things: Not at all Feeling nervous, anxious, or on edge Several days Not being able to stop or control worrying Not at all Anxiety Pre-Screening Total (If >/= 3 additional questions will be reviewed) 1 Emotional support: Yes Bowel symptoms: No nausea, vomiting, or diarrhea, No heartburn or reflux symptoms, Negative for abdominal discomfort, blood in stools or black stools, and change in bowel habits Abdomen: little redness Bladder symptoms: No dysuria, gross hematuria, urinary frequency, urinary urgency, or incontinence Other issues: None Last Pap: 2022 normal HPV: N/A PAST MEDICAL HISTORY Diagnosis Date Acute deep vein thrombosis (DVT) of popliteal vein of right lower extremity ([facility]) 02/2022 ADHD (attention deficit hyperactivity disorder) Allergic rhinitis, unspecified 12/16/2018 Bowel obstruction ([facility]) 2022 Chlamydia Diabetes, gestational ([facility]) Encounter for insertion of Mirena IUD 12/24/2021 Ex-smoker 12/16/2018 Started at age 19 up to 1/2-1 PPD, quit 05/2018 SAMAN (generalized anxiety disorder) 12/16/2018 [facility]. History of chlamydia 16 YO History of gastroesophageal reflux (GERD) 12/16/2018 History of maternal fourth degree perineal laceration, currently ([facility]) 08/18/2024 History of morbid obesity Infertility, female Menorrhagia 04/06/2020 had DX hysteroscopy and D&C PCOS (polycystic ovarian syndrome) Psoriasis 12/16/2018 Vitamin D deficiency 12/16/2018 PAST SURGICAL HISTORY Procedure Laterality Date SECTION HX 03/23/2025 CYST EXCISION 2016 right leg D&C, DIAG AND/OR THERAPEUTIC 2019 EXTRACTION, ERUPTED TOOTH OR EXPOSED ROOT (ELEVATION AND/OR FORCEPS REMOVAL) 2012 LAPS SURG CHOLECYSTECTOMY W/CHOLANGIOGRAPHY 10/14/2023 Dr. Macdonald LOCAL REVISION OF ILESTOMY 02/24/2022 LYSIS OF ADHESIONS 10/14/2023 Dr. Macdonald PAST SURGICAL HISTORY OF multiplr vaginoplasty- RV fistual after FAVD & 4th degree REMOVAL GALLBLADDER 10/14/2023 REPAIR INCISIONAL HERNIA,REDUCIBLE incisional hernia and umbilical hernia repair FAMILY HISTORY Problem Relation Age of Onset Heart disease Mother arythmia Diabetes Father Hypertension Father No Known Problems Sister No Known Problems Sister Kidney Disease Maternal Grandmother other (lupus) Maternal Grandmother Stroke Maternal Grandmother Heart Attack Maternal Grandmother Blood Clots Maternal Grandmother No Known Problems Maternal Grandfather Colon Cancer Paternal Grandmother late 50's Coronary Artery Disease Paternal Grandmother 40's Diabetes Paternal Grandmother Hypertension Paternal Grandmother Diabetes Paternal Grandfather Hypertension Paternal Grandfather Thyroid Cancer Paternal Aunt 52 Cervical Cancer Paternal Aunt Uterine Cancer Paternal Aunt Breast Cancer Paternal Aunt 20 - 29 Ovarian cancer Paternal Aunt 20 - 29 Thyroid Cancer Paternal Aunt 19 resolved Breast Cancer Paternal Aunt 20 - 29 Alzheimer's Disease No Family History Hyperlipidemia No Family History Thyroid No Family History Seizures No Family History Social History Tobacco Use Smoking status: Former Types: Cigarettes Smokeless tobacco: Never Tobacco comments: Stopped smoking cigarettes, Vaping Use Vaping status: Former Start date: 05/25/2024 Substances: Nicotine, Flavoring Devices: Disposable Substance Use Topics Alcohol use: Not Currently Alcohol/week: 1.0 standard drink of alcohol Types: 1 Cans of beer per week Comment: monthly Drug use: No PHYSICAL EXAMINATION: SENSITIVE EXAM: Sensitive exam not performed. BP 126/84 Ht 5' 2 (1.58m) Wt 262 lb (118.8kg) LMP 05/03/2025 BMI 47.91 kg/(m^2). GENERAL: pleasant, female in no apparent distress HEENT: Normocephalic, atraumatic, mucus membranes moist, and no lesions NECK: Supple, full range of motion, and no adenopathy DERMATOLOGY: Normal, without lesions, non-icteric, and non-hirsute BREAST: deferred CHEST: Normal inspiratory effort ABDOMEN: soft, non-tender, and no masses. INCISION: No incisional redness, swelling, or drainage PELVIC: deferred BIMANUAL: deferred NEURO: alert and oriented x3,exam grossly non-focal EXTREMITIES: normal ASSESSMENT AND PLAN: 30 year old status post CS with normal course. Contraception plan: IUD - Mirena Follow up: RTC for insertion of IUD Marietta Lugo MD documented in this encounter [facility] 04-05-2025 Note HNO ID: [id number] Author: CHRISTOFER AYALA MD Service: ? Author Type: Physician Type: Progress Notes Filed: 04/05/2025 08:44 Note Text: VISIT Patient Entered Questionnaires PHQ-2 Little interest or pleasure Not at all Down, depressed, hopeless More than half the days SAMAN 2 Nervous, anxious, on edge Nearly Everyday Cannot stop worrying Several days SAMAN 2 Score SAMAN-2 Total Score: 4 SAMAN 7 Worrying too much Nearly Everyday Trouble relaxing Nearly Everyday Restless Not at all Easily annoyed or irritable Several days Feeling afraid Not at all SAMAN 7 Score SAMAN-7 Score: 11 Leelee Zamora is a 29 year old year old here for visit. Delivery Summary: Repeat c/s 03/23/[address] Fry Male Cristobal 7 lbs 5.5 oz ROS/ Recovery: Feeding: Breast feeding problems: None Menses since delivery: light flow Menstrual pattern prior to : Regular periods [place] since delivery: Not resumed Depression: admits to symptoms of depression. OB Depression and Anxiety Screening- This Encounter Feeling down, depressed, or hopeless: More than half the days Little interest or pleasure in doing things: Not at all Feeling nervous, anxious, or on edge Nearly Everyday Not being able to stop or control worrying Several days Anxiety Pre-Screening Total (If >/= 3 additional questions will be reviewed) 4 Worrying too much about different things Nearly Everyday Trouble relaxing Nearly Everyday Being so restless that it is hard to sit still Not at all Becoming easily annoyed or irritable Several days Feeling afraid, as if something awful might happen Not at all SAMAN-7 Score 11 Emotional support: No Bowel symptoms: pressure with bowel movements andpotential recurrence of fistula Abdomen: She reports no incisional redness, tenderness, erythema Bladder symptoms: No dysuria, gross hematuria, urinary frequency, urinary urgency, or incontinence Other issues: Passage of gas and at times stool from the vagina and persistent odor. Last Pap: 03/12/2023 normal HPV: N/A PAST MEDICAL HISTORY Diagnosis Date Acute deep vein thrombosis (DVT) of popliteal vein of right lower extremity ([facility]) 02/2022 ADHD (attention deficit hyperactivity disorder) Allergic rhinitis, unspecified 12/16/2018 Bowel obstruction ([facility]) 2022 Chlamydia Diabetes, gestational ([facility]) Encounter for insertion of Mirena IUD 12/24/2021 Ex-smoker 12/16/2018 Started at age 19 up to 1/2-1 PPD, quit 05/2018 SAMAN (generalized anxiety disorder) 12/16/2018 Seeing Klaus [facility]. History of chlamydia 16 YO History of gastroesophageal reflux (GERD) 12/16/2018 History of maternal fourth degree perineal laceration, currently ([facility]) 08/18/2024 History of morbid obesity Infertility, female Menorrhagia 04/06/2020 had DX hysteroscopy and DANDC PCOS (polycystic ovarian syndrome) Psoriasis 12/16/2018 Vitamin D deficiency 12/16/2018 PAST SURGICAL HISTORY Procedure Laterality Date CYST EXCISION 2016 right leg DANDC, DIAG AND/OR THERAPEUTIC 2020 EXTRACTION, ERUPTED TOOTH OR EXPOSED ROOT (ELEVATION AND/OR FORCEPS REMOVAL) 2012 LAPS SURG CHOLECYSTECTOMY W/CHOLANGIOGRAPHY 10/14/2023 Dr. Macdonald LOCAL REVISION OF ILESTOMY 02/24/2022 LYSIS OF ADHESIONS 10/14/2023 Dr. Macdonald PAST SURGICAL HISTORY OF multiplr vaginoplasty- RV fistual after FAVD AND 4th degree REMOVAL GALLBLADDER 10/14/2023 REPAIR INCISIONAL HERNIA,REDUCIBLE incisional hernia and umbilical hernia repair FAMILY HISTORY Problem Relation Age of Onset Heart disease Mother arythmia Diabetes Father Hypertension Father No Known Problems Sister No Known Problems Sister Kidney Disease Maternal Grandmother other (lupus) Maternal Grandmother Stroke Maternal Grandmother Heart Attack Maternal Grandmother Blood Clots Maternal Grandmother No Known Problems Maternal Grandfather Colon Cancer Paternal Grandmother late 50's Coronary Artery Disease Paternal Grandmother 40's Diabetes Paternal Grandmother Hypertension Paternal Grandmother Diabetes Paternal Grandfather Hypertension Paternal Grandfather Thyroid Cancer Paternal Aunt 52 Cervical Cancer Paternal Aunt Uterine Cancer Paternal Aunt Breast Cancer Paternal Aunt 20 - 29 Ovarian cancer Paternal Aunt 20 - 29 Thyroid Cancer Paternal Aunt 19 resolved Breast Cancer Paternal Aunt 20 - 29 Alzheimer's Disease No Family History Hyperlipidemia No Family History Thyroid No Family History Seizures No Family History Social History Tobacco Use Smoking status: Former Types: Cigarettes Smokeless tobacco: Never Tobacco comments: Stopped smoking cigarettes, Vaping Use Vaping status: current everyday user Start date: 05/25/2024 Substances: Nicotine, Flavoring Devices: Disposable Substance Use Topics Alcohol use: Not Currently Alcohol/week: 1.0 standard dri (more content not included)... [facility] 04-05-2025 History of Presen t illness Narrative VISIT Patient Entered Questionnaires PHQ-2 Little interest or pleasure Not at all Down, depressed, hopeless More than half the days SAMAN 2 Nervous, anxious, on edge Nearly Everyday Cannot stop worrying Several days SAMAN 2 Score SAMAN-2 Total Score: 4 SAMAN 7 Worrying too much Nearly Everyday Trouble relaxing Nearly Everyday Restless Not at all Easily annoyed or irritable Several days Feeling afraid Not at all SAMAN 7 Score SAMAN-7 Score: 11 Leelee Zamora is a 29 year old year old here for visit. Delivery Summary: Repeat c/s 03/23/[address] Fry Male Cristobal 7 lbs 5.5 oz ROS/ Recovery: Feeding: Breast feeding problems: None Menses since delivery: light flow Menstrual pattern prior to : Regular periods [place] since delivery: Not resumed Depression: admits to symptoms of depression. OB Depression and Anxiety Screening- This Encounter Feeling down, depressed, or hopeless: More than half the days Little interest or pleasure in doing things: Not at all Feeling nervous, anxious, or on edge Nearly Everyday Not being able to stop or control worrying Several days Anxiety Pre-Screening Total (If >/= 3 additional questions will be reviewed) 4 Worrying too much about different things Nearly Everyday Trouble relaxing Nearly Everyday Being so restless that it is hard to sit still Not at all Becoming easily annoyed or irritable Several days Feeling afraid, as if something awful might happen Not at all SAMAN-7 Score 11 Emotional support: No Bowel symptoms: pressure with bowel movements andpotential recurrence of fistula Abdomen: She reports no incisional redness, tenderness, erythema Bladder symptoms: No dysuria, gross hematuria, urinary frequency, urinary urgency, or incontinence Other issues: Passage of gas and at times stool from the vagina and persistent odor. Last Pap: 03/12/2023 normal HPV: N/A PAST MEDICAL HISTORY Diagnosis Date Acute deep vein thrombosis (DVT) of popliteal vein of right lower extremity ([facility]) 02/2022 ADHD (attention deficit hyperactivity disorder) Allergic rhinitis, unspecified 12/16/2018 Bowel obstruction ([facility]) 2022 Chlamydia Diabetes, gestational ([facility]) Encounter for insertion of Mirena IUD 12/24/2021 Ex-smoker 12/16/2018 Started at age 19 up to 1/2-1 PPD, quit 05/2018 SAMAN (generalized anxiety disorder) 12/16/2018 Seeing Klaus [facility]. History of chlamydia 16 YO History of gastroesophageal reflux (GERD) 12/16/2018 History of maternal fourth degree perineal laceration, currently ([facility]) 08/18/2024 History of morbid obesity Infertility, female Menorrhagia 04/06/2020 had DX hysteroscopy and D&C PCOS (polycystic ovarian syndrome) Psoriasis 12/16/2018 Vitamin D deficiency 12/16/2018 PAST SURGICAL HISTORY Procedure Laterality Date CYST EXCISION 2016 right leg D&C, DIAG AND/OR THERAPEUTIC 2019 EXTRACTION, ERUPTED TOOTH OR EXPOSED ROOT (ELEVATION AND/OR FORCEPS REMOVAL) 2012 LAPS SURG CHOLECYSTECTOMY W/CHOLANGIOGRAPHY 10/14/2023 Dr. Macdonald LOCAL REVISION OF ILESTOMY 02/24/2022 LYSIS OF ADHESIONS 10/14/2023 Dr. Macdonald PAST SURGICAL HISTORY OF multiplr vaginoplasty- RV fistual after FAVD & 4th degree REMOVAL GALLBLADDER 10/14/2023 REPAIR INCISIONAL HERNIA,REDUCIBLE incisional hernia and umbilical hernia repair FAMILY HISTORY Problem Relation Age of Onset Heart disease Mother arythmia Diabetes Father Hypertension Father No Known Problems Sister No Known Problems Sister Kidney Disease Maternal Grandmother other (lupus) Maternal Grandmother Stroke Maternal Grandmother Heart Attack Maternal Grandmother Blood Clots Maternal Grandmother No Known Problems Maternal Grandfather Colon Cancer Paternal Grandmother late 50's Coronary Artery Disease Paternal Grandmother 40's Diabetes Paternal Grandmother Hypertension Paternal Grandmother Diabetes Paternal Grandfather Hypertension Paternal Grandfather Thyroid Cancer Paternal Aunt 52 Cervical Cancer Paternal Aunt Uterine Cancer Paternal Aunt Breast Cancer Paternal Aunt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 second trimester, unspecified obesity type (HCC) Orders: URINE OB DIP B/O MOD - schedule primary with . Reviewed labor & FM precautions Tahmina Dumont MD documented in this encounter [facility] 03-14-2025 Instructions Michelle Mcgee MA - 03/14/2025 1:50 PM EDT SEQUENTIAL SCREENINGS The [facility] offers sequential screenings for women who are interested in screenings for chromosomal abnormalities and certain defects during a . The sequential screen combines ultrasound and blood tests to determine the risk of chromosomal abnormalities, including Down's Syndrome (Trisomy 21) and Trisomy 18, as well as open neural tube defects including spina bifida. Ultrasound examination is performed between 11 weeks and 13 weeks gestational age. Blood tests are drawn after the ultrasound and again later in the between 15 and 21 weeks gestational age. Please let your physician know if you are interested in this testing. It will require an appointment with our nursery technician. This is not an ultrasound performed by a physician in our office during a routine visit. SIGNS AND SYMPTOMS OF LABOR 1. Contractions every 10 minutes or more often 2. Clear, pink, or brownish fluid (water) leaking from vagina 3. Feeling that baby is pushing down, pressure 4. Low, dull backache 5. Cramps that feel like a period 6. Cramps with or without diarrhea If you notice any of the above symptoms, contact our office at [phone] and ask to speak with a nurse. After hours, you can call doctors registry at [phone] OR call [facility] at [phone] and ask to have the doctor retail seasonal specialist paged. If you consider this an emergency, dial 9-6 or go to your nearest emergency department. NEED HELP? Are you dealing with a violent or abusive relationship? Are you a victim of rape or sexual assult? Call [facility] ([place]) 24 hour Crisis Hotline: 656.615.9718 or 640-998-5726. MANUAL Your Guide to a Healthy manual is now on-line. Visit [email or web address] to download your free copy documented in this encounter [facility] 03-07-2025 Progress note Formatting of t his note might be different from the original. S: Leelee Zamora is a 29 year old female who presents at 04/01/2025, by Last Menstrual Period for a routine visit. Denies headache, visual changes, chest pain, shortness of breath, vaginal bleeding, leakage of fluid, or dysuria. Feeling well, no complaints. Good movement, No contractions O: See flow sheet Gen: No apparent distress Abd: Gravid, nontender SENSITIVE EXAMINATION CONSENT: The sensitive examination was discussed with the Patient or Patient's Authorized Retail Sales Teammate. As applicable, any other physician, advance practice provider, medical student, or other health professional student that will be observing or involved in the sensitive examination for educational or training purposes was discussed with the Patient or Authorized Retail Sales Teammate. The Patient or Authorized Retail Sales Teammate has agreed to proceed with the sensitive examination. C/s scheduled for 03/23 OMARI 15.3 BPP 8/ EFW 63 % ASSESSMENT/PLAN: 1. Supervision of high risk in third trimester ([facility]) - ICD9: V23.9, ICD10: O09.93 (primary diagnosis) - URINE OB DIP B/O - ROUTINE, GROUP B STREPTOCOCCUS BY PCR 2. Insulin controlled gestational diabetes mellitus (GDM) in third trimester ([facility]) - ICD9: 648.83, ICD10: O24.414 BG good - URINE OB DIP B/O 3. History of maternal fourth degree perineal laceration, currently ([facility]) - ICD9: V23.49, ICD10: O09.299 PCS scheduled - URINE OB DIP B/O 4. Obesity affecting in second trimester, unspecified obesity type ([facility]) - ICD9: 649.13, ICD10: O99.212 BPP 05/19 - URINE OB DIP B/O 5. 36 weeks gestation of ([facility]) - ICD9: V22.2, ICD10: Z3A.36 GBS collected - URINE OB DIP B/O Marietta Lugo MD [facility] 03-07-2025 Miscellaneous Notes S: Leelee Zamora is a 29 year old female who presents at 04/01/2025, by Last Menstrual Period for a routine visit. Denies headache, visual changes, chest pain, shortness of breath, vaginal bleeding, leakage of fluid, or dysuria. Feeling well, no complaints. Good movement, No contractions O: See flow sheet Gen: No apparent distress Abd: Gravid, nontender SENSITIVE EXAMINATION CONSENT: The sensitive examination was discussed with the Patient or Patient's Authorized Retail Sales Teammate. As applicable, any other physician, advance practice provider, medical student, or other health professional student that will be observing or involved in the sensitive examination for educational or training purposes was discussed with the Patient or Authorized Retail Sales Teammate. The Patient or Authorized Retail Sales Teammate has agreed to proceed with the sensitive examination. C/s scheduled for 03/23 OMARI 15.3 BPP 8/8 EFW 63 % ASSESSMENT/PLAN: 1. Supervision of high risk in third trimester ([facility]) - ICD9: V23.9, ICD10: O09.93 (primary diagnosis) - URINE OB DIP B/O - ROUTINE, GROUP B STREPTOCOCCUS BY PCR 2. Insulin controlled gestational diabetes mellitus (GDM) in third trimester ([facility]) - ICD9: 648.83, ICD10: O24.414 BG good - URINE OB DIP B/O 3. History of maternal fourth degree perineal laceration, currently ([facility]) - ICD9: V23.49, ICD10: O09.299 PCS scheduled - URINE OB DIP B/O 4. Obesity affecting in second trimester, unspecified obesity type ([facility]) - ICD9: 649.13, ICD10: O99.212 BPP 8/8 - URINE OB DIP B/O 5. 36 weeks gestation of ([facility]) - ICD9: V22.2, ICD10: Z3A.36 GBS collected - URINE OB DIP B/O Marietta Lugo MD documented in this encounter [facility] 03-07-2025 Note Indication Evaluation of growth, Evaluation of well-being Gestational diabetes - diet controlled, Maternal obesity, BMI >35 Impression - Single, live, intrauterine . - presentation is cephalic. - The biometry is consistent with the assigned gestational dating. - The EFW is 3042 g, at the 64%. AC is at the 80%. - The amniotic fluid volume is normal amount with an MVP of 5.3 cm and an OMARI of 15.3 cm. - The placenta is posterior. - BPP 05/19. - No malformations visualized on a limited survey as detailed below. Recommendations COntinue planned testing Maternal Assessment Height 157 cm Height (ft) 5 ft Height (in) 2 in Physical Exam Initial weight (lb) 204 lb Initial BMI 37.31 kg/m Maternal assessment other: 2 Para 1 Method Transabdominal ultrasound examination. Color Doppler examination, Transabdominal ultrasound examination. View: Suboptimal view: limited by position Roach . Number of fetuses: 1 Dating LMP on: 06/25/2024 GA by LMP 36 w + 3 d MJ by LMP: 04/01/2025 GA by prior assessment 36 w + 3 d MJ by prior assessment: 04/01/2025 Ultrasound examination on: 03/07/2025 GA by U/S based upon: AC, BPD, Femur, HC GA by U/S 36 w + 4 d MJ by U/S: 03/31/2025 Assigned: based on stated MJ, selected on 02/21/2025 Assigned GA 36 w + 3 d Assigned MJ: 04/01/2025 General Evaluation Cardiac activity present. FHR 148 bpm. movements: present. Presentation: cephalic Placenta: Placental site: posterior Umbilical cord: Cord vessels: 3 vessel cord Amniotic fluid: Amount of AF: normal amount. MVP 5.3 cm. OMARI 15.3 cm. Q1 5.3 cm, Q2 3.8 cm, Q3 4.7 cm, Q4 1.6 cm Biophysical Profile 2: breathing movements 2: Gross body movements 2: tone 2: Amniotic fluid volume 05/19 Biophysical profile score Growth Overview Exam date GA BPD (mm) HC (mm) AC (mm) FL (mm) HL (mm) EFW (g) 11/15/2024 20w 3d 47.9 52% 175.1 37% 158.3 62% 33.8 71% 31 45% 368 57% 01/10/2025 28w 3d 73.5 72% 272 66% 246.2 56% 54.7 75% 1320 59% 02/06/2025 33w 4d 83.1 41% 300.1 27% 287.4 28% 61.8 22% 2011 18% 03/07/2025 36w 3d 91.1 75% 323.6 41% 332.2 80% 71.6 84% 3042 64% Biometry Standard BPD 91.1 mm 37w 0d 75% Hadlock OFD 109.8 mm 33w 0d 19% Nicolaides HC 323.6 mm 35w 5d 41% Arcadio AC 332.2 mm 37w 1d 80% Hadlock Femur 71.6 mm 36w 1d 84% Arcadio EFW 3,042 g 37w 0d 64% Hadlock EFW (lb) 6 lb EFW (oz) 11 oz EFW by: Hadlock (HC-AC-FL) Extended Supervisor [employer] 3.0 mm Extremities / Bony Struc FL / HC 0.22 Other Structures FHR 148 bpm Anatomy Lateral ventricles: normal Cavum septi pellucidi: normal Cerebellum: suboptimally visualized Cisterna magna: suboptimally visualized 4-chamber view: normal RVOT view: normal LVOT view: normal 3-vessel view: normal Heart / Thorax Situs: situs solitus (normal) Diaphragm: normal Stomach: normal Kidneys: normal Bladder: normal sex: male Wants to know sex: yes Performed By: Fay Gould RDMS Read By: Winter Nation M.D. MATERNAL MEDICINE 03-07-2025 Instructions Lilly Conklin MA - 03/07/2025 2:03 PM EDT SEQUENTIAL SCREENINGS The [facility] offers sequential screenings for women who are interested in screenings for chromosomal abnormalities and certain defects during a . The sequential screen combines ultrasound and blood tests to determine the risk of chromosomal abnormalities, including Down's Syndrome (Trisomy 21) and Trisomy 18, as well as open neural tube defects including spina bifida. Ultrasound examination is performed between 11 weeks and 13 weeks gestational age. Blood tests are drawn after the ultrasound and again later in the between 15 and 21 weeks gestational age. Please let your physician know if you are interested in this testing. It will require an appointment with our nursery technician. This is not an ultrasound performed by a physician in our office during a routine visit. SIGNS AND SYMPTOMS OF LABOR 1. Contractions every 10 minutes or more often 2. Clear, pink, or brownish fluid (water) leaking from vagina 3. Feeling that baby is pushing down, pressure 4. Low, dull backache 5. Cramps that feel like a period 6. Cramps with or without diarrhea If you notice any of the above symptoms, contact our office at [phone] and ask to speak with a nurse. After hours, you can call doctors registry at [phone] OR call [facility] at [phone] and ask to have the doctor retail seasonal specialist paged. If you consider this an emergency, dial 1-2-5 or go to your nearest emergency department. NEED HELP? Are you dealing with a violent or abusive relationship? Are you a victim of rape or sexual assult? Call [facility] ([place]) 24 hour Crisis Hotline: 168.226.1582 or 549-823-4039. MANUAL Your Guide to a Healthy manual is now on-line. [email or web address] to download your free copy documented in this encounter [facility] 02-28-2025 Note HNO ID: [id number] Author: TOPHER MCCORD MD Service: ? Author Type: Physician Type: Progress Notes Filed: 02/28/2025 16:02 Note Text: NST SUMMARY PROVIDER ASSESSMENT AND INTERPRETATION Leelee Zamora is a 29 year old female, , who is at 35w3d with an MJ of 04/01/2025, by Last Menstrual Period dating method. Indications for NST: Diabetes - Insulin Controlled and Obesity Baseline: 150 Variability: Moderate Accelerations: Present 15 X 15 Decelerations: None Contractions: TOCO: None Interpretation: Category I and Reactive SIGNATURE: Topher Causey MD [facility] 02-22-2025 Telephone encounter Note I saw on cover my meds that patients insulin was approved. I will notify patient. Delmar Sousa MA [facility] 02-22-2025 Miscellaneous Notes I saw on cover my meds that patients insulin was approved. I will notify patient. Delmar Sousa MA documented in this encounter [facility] 02-22-2025 Telephone encounter Note ordered [facility] 02-22-2025 Miscellaneous Notes ordered 34w4d Order pending. Please review and file if appropriate. Pt saw elementary educator 01/10/25. However, has not seen Endo nutrition. Sophia Hamilton RN Yesterday Judy Garcia asked me to schedule this pt for a consult w/ Dietary/ Nutrient. She had me schedule it from the Nutrient consult but I received a message back this morning that they do not see for that due to complexity. Could you please place new order with Endo for this visit and I will schedule, thank you. documented in this encounter [facility] 02-22-2025 Telephone encounter Note 34w4d Order pending. Please review and file if appropriate. Pt saw elementary educator 01/10/25. However, has not seen Endo nutrition. Sophia Hamilton, TERRY [facility] 02-22-2025 Telephone encounter Note Yesterday Judy Garcia asked me to schedule this pt for a consult w/ Dietary/ Nutrient. She had me schedule it from the Nutrient consult but I received a message back this morning that they do not see for that due to complexity. Could you please place new order with Endo for this visit and I will schedule, thank you. [facility] 02-22-2025 Telephone encounter Note Previous operative Records from [place] received and sent to be scanned into record. [facility] 02-22-2025 Miscellaneous Notes Previous operative Records from [place] received and sent to be scanned into record. documented in this encounter [facility] 02-21-2025 Telephone encounter Note Faxed request form sent to [facility] [phone] for records related to fistula surgery. They are to send 2 operative reports from 2020 and one from 2021 [facility] 02-21-2025 Miscellaneous Notes Faxed request form sent to Donta Diaz [phone] for records related to fistula surgery. They are to send 2 operative reports from 2020 and one from 2021 documented in this encounter [facility] 02-21-2025 Note HNO ID: [id number] Author: WINTER NATION MD Service: ? Author Type: Physician Type: Progress Notes Filed: 02/21/2025 15:20 Note Text: MFM Consult Follow Up 29yo @ 34w3d here for BPP and discuss GDM now on insulin. She had MFM consultation on 11/15/24. She is doing ok today, no contractions, bleeding, leaking fluid or decreased movement. Feeling frequent hiccups. LMP 06/25/2024 (Exact Date) Alert, oriented, no acute distress Normal inspiratory effort Abdomen soft, nontender during US exam US shows BPP 05/19 We reviewed glucoses and multiple post-prandial levels are elevated and some fasting are elevated. She recently started NPH twice daily (just started 2 days ago) We discussed risks, benefits and alternatives of early term delivery in context of sub-optimal control of GDM. 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 We will again attempt to request operative report records from [facility] which I have not been able to locate in Care Everywhere. Problem List Items Addressed This Visit Endocrinology Insulin controlled gestational diabetes mellitus (GDM) in third trimester ([facility]) Relevant Orders SURGICAL REQUEST - ELECTIVE (05/2020) MATERIALS ANALYST History of maternal fourth degree perineal laceration, currently ([facility]) Overview H/o fourth degree laceration after forcep assisted delivery with rectovaginal fistula formation. Primary delivery recommended Other Obesity complicating , second trimester ([facility]) Overview - Pre BMI 37 - Plan for growth q 4 weeks at 28 weeks - Weekly NSTs at 36 weeks. Other Visit Diagnoses Gestational diabetes mellitus (GDM) requiring insulin ([facility]) - Primary Relevant Orders DELIVERY+ CARE Diet controlled gestational diabetes mellitus (GDM) in third trimester ([facility]) Supervision of high risk in third trimester ([facility]) Medical Decision Making: Problems: Moderate: 2+ stable chronic illnesses and New problem with uncertain prognosis Risk: Moderate: Moderate risk from testing/treatment Medical Decision Making Level: 4 - Moderate Winter Nation MD [facility] 02-21-2025 History of Presen t illness Narrative MFM Consult Follow Up 29yo @ 34w3d here for BPP and discuss GDM now on insulin. She had MFM consultation on 11/15/24. She is doing ok today, no contractions, bleeding, leaking fluid or decreased movement. Feeling frequent hiccups. LMP 06/25/2024 (Exact Date) Alert, oriented, no acute distress Normal inspiratory effort Abdomen soft, nontender during US exam US shows BPP 8/8 We reviewed glucoses and multiple post-prandial levels are elevated and some fasting are elevated. She recently started NPH twice daily (just started 2 days ago) We discussed risks, benefits and alternatives of early term delivery in context of sub-optimal control of GDM. 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 We will again attempt to request operative report records from [facility] which I have not been able to locate in Care Everywhere. Problem List Items Addressed This Visit Endocrinology Insulin controlled gestational diabetes mellitus (GDM) in third trimester ([facility]) Relevant Orders SURGICAL REQUEST - ELECTIVE (05/2020) MATERIALS ANALYST History of maternal fourth degree perineal laceration, currently ([facility]) Overview H/o fourth degree laceration after forcep assisted delivery with rectovaginal fistula formation. Primary delivery recommended Other Obesity complicating , second trimester ([facility]) Overview - Pre BMI 37 - Plan for growth q 4 weeks at 28 weeks - Weekly NSTs at 36 weeks. Other Visit Diagnoses Gestational diabetes mellitus (GDM) requiring insulin ([facility]) - Primary Relevant Orders DELIVERY+ CARE Diet controlled gestational diabetes mellitus (GDM) in third trimester ([facility]) Supervision of high risk in third trimester ([facility]) Medical Decision Making: Problems: Moderate: 2+ stable chronic illnesses and New problem with uncertain prognosis Risk: Moderate: Moderate risk from testing/treatment Medical Decision Making Level: 4 - Moderate Winter Nation MD documented in this encounter [facility] 02-21-2025 Note Indication Evaluation of well-being Maternal obesity, BMI >35, Gestational diabetes - insulin dependent Impression - Single, live, intrauterine . - presentation is cephalic. - The amniotic fluid volume is normal amount with an MVP of 5.5 cm and an OMARI of 15.9 cm. - The placenta is posterior, fundal. - BPP 8/8. Recommendations Continue planned testing Maternal Assessment Height 157 cm Height (ft) 5 ft Height (in) 2 in Physical Exam Initial weight (lb) 204 lb Initial BMI 37.31 kg/m Maternal assessment other: 2 Para 1 Growth Overview Exam date GA BPD (mm) HC (mm) AC (mm) FL (mm) HL (mm) EFW (g) 11/15/2024 20w 3d 47.9 52% 175.1 37% 158.3 62% 33.8 71% 31 45% 368 57% 01/10/2025 28w 3d 73.5 72% 272 66% 246.2 56% 54.7 75% 1320 59% 02/06/2025 33w 4d 83.1 41% 300.1 27% 287.4 28% 61.8 22% 2010 18% Method Transabdominal ultrasound examination [place] . Number of fetuses: 1 Dating LMP on: 06/25/2024 GA by LMP 34 w + 3 d MJ by LMP: 04/01/2025 GA by prior assessment 34 w + 3 d MJ by prior assessment: 04/01/2025 Assigned: based on stated MJ, selected on 02/21/2025 Assigned GA 34 w + 3 d Assigned MJ: 04/01/2025 General Evaluation Cardiac activity present. FHR 158 bpm. movements: present. Presentation: cephalic Placenta: Placental site: posterior, fundal Amniotic Fluid Assessment Amount of AF: normal amount MVP 5.5 cm. OMARI 15.9 cm. Q1 3.1 cm, Q2 3.2 cm, Q3 4.1 cm, Q4 5.5 cm Biophysical Profile 2: breathing movements 2: Gross body movements 2: tone 2: Amniotic fluid volume 05/19 Biophysical profile score Anatomy sex: male. Performed By: Tatyana Chisholm RDMS, RVT Read By: Winter Nation M.D. MATERNAL MEDICINE 02-16-2025 Note HNO ID: [id number] Author: TOPHER MCCORD MD Service: ? Author Type: Physician Type: Progress Notes Filed: 02/16/2025 12:29 Note Text: NST SUMMARY PROVIDER ASSESSMENT AND INTERPRETATION Leelee Zamora is a 29 year old female, , who is at 33w5d with an MJ of 04/01/2025, by Last Menstrual Period dating method. Indications for NST: Diabetes - Insulin Controlled and Obesity Baseline: 140 Variability: Moderate Accelerations: Present 15 X 15 Decelerations: None Contractions: TOCO: None Interpretation: Category I and Reactive SIGNATURE: Topher Causey MD [facility] 02-16-2025 History of Presen t illness Narrative NST SUMMARY PROVIDER ASSESSMENT AND INTERPRETATION Leelee Zamora is a 29 year old female, , who is at 33w5d with an MJ of 04/01/2025, by Last Menstrual Period dating method. Indications for NST: Diabetes - Insulin Controlled and Obesity Baseline: 140 Variability: Moderate Accelerations: Present 15 X 15 Decelerations: None Contractions: TOCO: None Interpretation: Category I and Reactive SIGNATURE: Topher Causey MD documented in this encounter [facility] 02-16-2025 Progress note Formatting of t his note might be different from the original. DM-Pt doing well. Denies vaginal Bleeding, Leaking fluid, or regular Contractions. Pt reports good movement Brought BS log with her. Physical Exam: Gen: female in no apparent distress Abd: soft, Gravid. Non tender to palpation. See flow sheet Fastings: 73-109- (50% are elevated) 1hr PP- 92-186 (>50% elevated) @ 33.5 weeks Assessment & Plan Supervision of high risk in third trimester ([facility]) Insulin controlled gestational diabetes mellitus (GDM) in third trimester ([facility]) Decision to start Insulin based on BS log today- will start 12 units NPH at night and morning - pt counseled on proper administration. - pt to follow up with [facility] Thursday Orders: insulin NPH subcutaneous pen; Inject 12 Units subcutaneously two times a day at 6 am and 9 pm. History of maternal fourth degree perineal laceration, currently ([facility]) Primary cs scheduled at [facility] for h/o ileostomy with previous 4th degree Obesity affecting in second trimester, unspecified obesity type ([facility]) Topherandre Causey MD [facility] 02-16-2025 Miscellaneous Notes DM-Pt doing well. Denies vaginal Bleeding, Leaking fluid, or regular Contractions. Pt reports good movement Brought BS log with her. Physical Exam: Gen: female in no apparent distress Abd: soft, Gravid. Non tender to palpation. See flow sheet Fastings: 73-109- (50% are elevated) 1hr PP- 92-186 (>50% elevated) @ 33.5 weeks Assessment & Plan Supervision of high risk in third trimester ([facility]) Insulin controlled gestational diabetes mellitus (GDM) in third trimester ([facility]) Decision to start Insulin based on BS log today- will start 12 units NPH at night and morning - pt counseled on proper administration. - pt to follow up with [facility] Thursday Orders: insulin NPH subcutaneous pen; Inject 12 Units subcutaneously two times a day at 6 am and 9 pm. History of maternal fourth degree perineal laceration, currently ([facility]) Primary cs scheduled at [facility] for h/o ileostomy with previous 4th degree Obesity affecting in second trimester, unspecified obesity type ([facility]) Topher Causey MD documented in this encounter [facility] 02-16-2025 Instructions Lilly Conklin MA - 02/16/2025 11:07 AM EDT SEQUENTIAL SCREENINGS The [facility] offers sequential screenings for women who are interested in screenings for chromosomal abnormalities and certain defects during a . The sequential screen combines ultrasound and blood tests to determine the risk of chromosomal abnormalities, including Down's Syndrome (Trisomy 21) and Trisomy 18, as well as open neural tube defects including spina bifida. Ultrasound examination is performed between 11 weeks and 13 weeks gestational age. Blood tests are drawn after the ultrasound and again later in the between 15 and 21 weeks gestational age. Please let your physician know if you are interested in this testing. It will require an appointment with our nursery technician. This is not an ultrasound performed by a physician in our office during a routine visit. SIGNS AND SYMPTOMS OF LABOR 1. Contractions every 10 minutes or more often 2. Clear, pink, or brownish fluid (water) leaking from vagina 3. Feeling that baby is pushing down, pressure 4. Low, dull backache 5. Cramps that feel like a period 6. Cramps with or without diarrhea If you notice any of the above symptoms, contact our office at [phone] and ask to speak with a nurse. After hours, you can call doctors registry at [phone] OR call [facility] at [phone] and ask to have the doctor retail seasonal specialist paged. If you consider this an emergency, dial 9-9-4 or go to your nearest emergency department. NEED HELP? Are you dealing with a violent or abusive relationship? Are you a victim of rape or sexual assult? Call [facility] ([place]) 24 hour Crisis Hotline: 173.391.8147 or 909-423-6431. MANUAL Your Guide to a Healthy manual is now on-line. Visit [email or web address] to download your free copy documented in this encounter [facility] 02-15-2025 Progress note Formatting of t his note might be different from the original. DM-Pt doing well. Denies vaginal Bleeding, Leaking fluid, or regular Contractions. Pt reports good movement Did not bring BS log with her today. States majority of BS are all well controlled states not 50% of them are elevated. Pt states does not have time do to NST today but will come back tomorrow. Physical Exam: Gen: female in no apparent distress Abd: soft, Gravid. Non tender to palpation. See flow sheet @ 33.4 weeks Assessment & Plan Supervision of high risk in third trimester ([facility]) Orders: URINE OB DIP B/O Diet controlled gestational diabetes mellitus (GDM) in third trimester ([facility]) - importance of having BS log to review d/w patient- advised needs to bring to next appt. Orders: URINE OB DIP B/O History of maternal fourth degree perineal laceration, currently ([facility]) - primary cs planned Orders: URINE OB DIP B/O Obesity affecting in second trimester, unspecified obesity type ([facility]) - NSTs weekly Orders: URINE OB DIP B/O Topher Causey MD [facility] 02-15-2025 Miscellaneous Notes DM-Pt doing well. Denies vaginal Bleeding, Leaking fluid, or regular Contractions. Pt reports good movement Did not bring BS log with her today. States majority of BS are all well controlled states not 50% of them are elevated. Pt states does not have time do to NST today but will come back tomorrow. Physical Exam: Gen: female in no apparent distress Abd: soft, Gravid. Non tender to palpation. See flow sheet @ 33.4 weeks Assessment & Plan Supervision of high risk in third trimester ([facility]) Orders: URINE OB DIP B/O Diet controlled gestational diabetes mellitus (GDM) in third trimester ([facility]) - importance of having BS log to review d/w patient- advised needs to bring to next appt. Orders: URINE OB DIP B/O History of maternal fourth degree perineal laceration, currently ([facility]) - primary cs planned Orders: URINE OB DIP B/O Obesity affecting in second trimester, unspecified obesity type ([facility]) - NSTs weekly Orders: URINE OB DIP B/O Topher Causey MD documented in this encounter [facility] 02-15-2025 Instructions Lilly Conklin MA - 02/15/2025 10:00 AM EDT SEQUENTIAL SCREENINGS The [facility] offers sequential screenings for women who are interested in screenings for chromosomal abnormalities and certain defects during a . The sequential screen combines ultrasound and blood tests to determine the risk of chromosomal abnormalities, including Down's Syndrome (Trisomy 21) and Trisomy 18, as well as open neural tube defects including spina bifida. Ultrasound examination is performed between 11 weeks and 13 weeks gestational age. Blood tests are drawn after the ultrasound and again later in the between 15 and 21 weeks gestational age. Please let your physician know if you are interested in this testing. It will require an appointment with our nursery technician. This is not an ultrasound performed by a physician in our office during a routine visit. SIGNS AND SYMPTOMS OF LABOR 1. Contractions every 10 minutes or more often 2. Clear, pink, or brownish fluid (water) leaking from vagina 3. Feeling that baby is pushing down, pressure 4. Low, dull backache 5. Cramps that feel like a period 6. Cramps with or without diarrhea If you notice any of the above symptoms, contact our office at [phone] and ask to speak with a nurse. After hours, you can call doctors registry at [phone] OR call [facility] at [phone] and ask to have the doctor retail seasonal specialist paged. If you consider this an emergency, dial 9-1-1 or go to your nearest emergency department. NEED HELP? Are you dealing with a violent or abusive relationship? Are you a victim of rape or sexual assult? Call [facility] ([place]) 24 hour Crisis Hotline: 604.113.8816 or 871-797-3292. MANUAL Your Guide to a Healthy manual is now on-line. Visit [email or web address] to download your free copy documented in this encounter [facility] 02-10-2025 Note HNO ID: [id number] Author: TAHMINA DUMONT MD Service: ? Author Type: Physician Type: Progress Notes Filed: 02/10/2025 12:24 Note Text: NST SUMMARY PROVIDER ASSESSMENT AND INTERPRETATION Leelee Zamora is a 29 year old female, , who is at 32w6d with an MJ of 04/01/2025, by Last Menstrual Period dating method. Indications for NST: Decreased Movement Baseline: 145 Variability: Moderate Accelerations: Absent Decelerations: None Contractions: TOCO: None Interpretation: Non-Reactive Patient to LANDD for additional monitoring. SIGNATURE: Tahmina Dumont MD [facility] 02-10-2025 History of Presen t illness Narrative NST SUMMARY PROVIDER ASSESSMENT AND INTERPRETATION Leelee Zamora is a 29 year old female, , who is at 32w6d with an MJ of 04/01/2025, by Last Menstrual Period dating method. Indications for NST: Decreased Movement Baseline: 145 Variability: Moderate Accelerations: Absent Decelerations: None Contractions: TOCO: None Interpretation: Non-Reactive Patient to L&D for additional monitoring. SIGNATURE: Tahmina Dumont MD documented in this encounter [facility] 02-09-2025 Telephone encounter Note 32w5d Pt calls stating she has drank 180oz (3 big cups that are 64 ounces) & has Peed once/ has no urge to pee-Pt worried about her kidneys as urine was dark. GDM w/BGT 91, after lunch 165, has not checked after snack. Has been busy today and running errands/states extremely hot. Advised Pt to continue drinking plenty of fluids, continue to check BG as advised, review GDM booklet (Pt states she has and looks at it all the time regarding her symptoms)-encouraged her to continue doing so re: hyper/hypoglycemia, informed Pt that it is likely she was more dehydrated than she realized. Informed her urine was dark likely because she has only voiced once. Instructed her to call office if she would have difficulty voiding or pain with urination. Decreased FM-only have 4 in 2-3 hour period. Reviewed kick counts with Pt. Passado message sent with instructions for future reference. Discussed Decreased FM with RR and Pt scheduled to come to office for NST. Pt's next NST in office 02/15/25 with OB appt following. Sophia Hamilton, RN [facility] 02-09-2025 Miscellaneous Notes 32w5d Pt calls stating she has drank 180oz (3 big cups that are 64 ounces) & has Peed once/ has no urge to pee-Pt worried about her kidneys as urine was dark. GDM w/BGT 91, after lunch 165, has not checked after snack. Has been busy today and running errands/states extremely hot. Advised Pt to continue drinking plenty of fluids, continue to check BG as advised, review GDM booklet (Pt states she has and looks at it all the time regarding her symptoms)-encouraged her to continue doing so re: hyper/hypoglycemia, informed Pt that it is likely she was more dehydrated than she realized. Informed her urine was dark likely because she has only voiced once. Instructed her to call office if she would have difficulty voiding or pain with urination. Decreased FM-only have 4 in 2-3 hour period. Reviewed kick counts with Pt. Passado message sent with instructions for future reference. Discussed Decreased FM with RR and Pt scheduled to come to office for NST. Pt's next NST in office 02/15/25 with OB appt following. Sophia Hamilton RN documented in this encounter [facility] 02-07-2025 Telephone encounter Note 3rd risk assessment form submitted 02/07/2025. Marietta Cobb RN [facility] 02-07-2025 Miscellaneous Notes 3rd risk assessment form submitted 02/07/2025. Marietta Cobb RN documented in this encounter [facility] 02-06-2025 Note Indication Evaluation of growth, Evaluation of well-being Gestational diabetes - diet controlled, Maternal obesity, BMI >35 Impression - Single, live, intrauterine . - The biometry is consistent with the assigned gestational dating. - The EFW is 2011 g, at the 18%. AC is at the 28%. - The amniotic fluid volume is normal amount with an MVP of 4.3 cm and an OMARI of 13.2 cm. - The placenta is posterior, fundal. - BPP 88. - No malformations visualized on a limited survey as detailed below. Recommendations Growth in four weeks Continue planned testing Maternal Assessment Height 157 cm Height (ft) 5 ft Height (in) 2 in Physical Exam Initial weight (lb) 204 lb Initial BMI 37.31 kg/m Maternal assessment other: 2 Para 1 REMOTE READ Method Transabdominal ultrasound examination Roach . Number of fetuses: 1 Dating LMP on: 06/25/2024 GA by LMP 32 w + 2 d MJ by LMP: 04/01/2025 GA by prior assessment 33 w + 4 d MJ by prior assessment: 03/23/2025 Ultrasound examination on: 02/06/2025 GA by U/S based upon: AC, BPD, Femur, HC GA by U/S 32 w + 4 d MJ by U/S: 03/30/2025 Assigned: based on stated MJ, selected on 02/06/2025 Assigned GA 33 w + 4 d Assigned MJ: 03/23/2025 General Evaluation Cardiac activity present. FHR 157 bpm. movements: present. Presentation: cephalic Placenta: Placental site: posterior, fundal Umbilical cord: Cord vessels: 3 vessel cord Amniotic fluid: Amount of AF: normal amount. MVP 4.3 cm. OMARI 13.2 cm. Q1 4.3 cm, Q2 2.8 cm, Q3 3.4 cm, Q4 2.7 cm Biophysical Profile 2: breathing movements 2: Gross body movements 2: tone 2: Amniotic fluid volume 05/19 Biophysical profile score Growth Overview Exam date GA BPD (mm) HC (mm) AC (mm) FL (mm) HL (mm) EFW (g) 11/15/2024 20w 3d 47.9 52% 175.1 37% 158.3 62% 33.8 71% 31 45% 368 57% 01/10/2025 28w 3d 73.5 72% 272 66% 246.2 56% 54.7 75% 1320 59% 02/06/2025 33w 4d 83.1 41% 300.1 27% 287.4 28% 61.8 22% 2010 18% Biometry Standard BPD 83.1 mm 33w 3d 41% Hadlock OFD 104.1 mm 30w 5d 13% Nicolaides HC 300.1 mm 32w 3d 27% Arcadio AC 287.4 mm 32w 5d 28% Hadlock Femur 61.8 mm 31w 6d 22% Arcadio EFW 2,011 g 32w 2d 18% Hadlock EFW (lb) 4 lb EFW (oz) 7 oz EFW by: Hadlock (HC-AC-FL) Extended Supervisor [employer] 5.0 mm Extremities / Bony Struc FL / HC 0.21 Other Structures FHR 157 bpm Anatomy Lateral ventricles: normal Cavum septi pellucidi: normal Cerebellum: normal Cisterna magna: normal 4-chamber view: normal RVOT view: normal LVOT view: normal 3-vessel view: normal Heart / Thorax Situs: situs solitus (normal) Diaphragm: normal Stomach: normal Kidneys: normal Bladder: normal sex: male Wants to know sex: yes Performed By: Tatyana Chisholm, THU, RVT Read By: Winter Nation M.D. [facility] 02-06-2025 Progress note Formatting of t his note might be different from the original. RR- VB No. LOF No. CTXS No. Movement: present. Other c/o: No. patient has concerns she is not being heard. Very concerned we are risking her health if she isn't delivered before 39 weeks. Admits not checking BS Medication list reviewed. SENSITIVE EXAM: Sensitive exam not performed. Physical Exam See Flow Sheet Abd: soft, nontender, gravid Ext: edema: Trace A/P 32w2d Estimated Date of Delivery: 04/01/25 Assessment & Plan Diet controlled gestational diabetes mellitus (GDM) in third trimester ([facility]) hasn't been checking BS regularly, no log today. reports 145-150 at times after meals.Fastings at times elevated. I dw/ her that I cannot recommend treatment unless I get a log to see trend/percentage of elevated BS, if she has any lows. Concnered not well controlled so check NSTs weekly and f/u growth in 3-4 weeks. Orders: URINE OB DIP B/O CONSULT TO MATERNAL MEDI; Future NON-STRESS TEST; Standing History of maternal fourth degree perineal laceration, currently ([facility]) Had extensive repair after last delivery, very concerned about going into labor and being so far from tertiary care center. D/ wher will check w/ MFM about scheduling. we discussed medical criteria for delivery < 39 weeks. D/w her at this point I would recommend consult w/ MFM about GDM and delivery recommedations. Plans primary c/s Orders: URINE OB DIP B/O CONSULT TO MATERNAL MEDI; Future Supervision of high risk in third trimester ([facility]) Orders: URINE OB DIP B/O CONSULT TO MATERNAL MEDI; Future NON-STRESS TEST; Standing Obesity affecting in second trimester, unspecified obesity type ([facility]) Orders: URINE OB DIP B/O CONSULT TO MATERNAL MEDI; Future NON-STRESS TEST; Standing 32 weeks gestation of ([facility]) Orders: URINE OB DIP B/O BPP 05/19 today. Britney Griffin M.D. [facility] 02-06-2025 Miscellaneous Notes RR- VB No. LOF No. CTXS No. Movement: present. Other c/o: No. patient has concerns she is not being heard. Very concerned we are risking her health if she isn't delivered before 39 weeks. Admits not checking BS Medication list reviewed. SENSITIVE EXAM: Sensitive exam not performed. Physical Exam See Flow Sheet Abd: soft, nontender, gravid Ext: edema: Trace A/P 32w2d Estimated Date of Delivery: 04/01/25 Assessment & Plan Diet controlled gestational diabetes mellitus (GDM) in third trimester ([facility]) hasn't been checking BS regularly, no log today. reports 145-150 at times after meals.Fastings at times elevated. I dw/ her that I cannot recommend treatment unless I get a log to see trend/percentage of elevated BS, if she has any lows. Concnered not well controlled so check NSTs weekly and f/u growth in 3-4 weeks. Orders: URINE OB DIP B/O CONSULT TO MATERNAL MEDI; Future NON-STRESS TEST; Standing History of maternal fourth degree perineal laceration, currently ([facility]) Had extensive repair after last delivery, very concerned about going into labor and being so far from tertiary care center. D/ wher will check w/ MFM about scheduling. we discussed medical criteria for delivery < 39 weeks. D/w her at this point I would recommend consult w/ MFM about GDM and delivery recommedations. Plans primary c/s Orders: URINE OB DIP B/O CONSULT TO MATERNAL MEDI; Future Supervision of high risk in third trimester ([facility]) Orders: URINE OB DIP B/O CONSULT TO MATERNAL MEDI; Future NON-STRESS TEST; Standing Obesity affecting in second trimester, unspecified obesity type ([facility]) Orders: URINE OB DIP B/O CONSULT TO MATERNAL MEDI; Future NON-STRESS TEST; Standing 32 weeks gestation of ([facility]) Orders: URINE OB DIP B/O BPP 05/19 today. Britney Griffin M.D. documented in this encounter [facility] 02-06-2025 Instructions Calvin TrentathNATASHA isaac - 02/06/2025 1:35 PM EDT SEQUENTIAL SCREENINGS The [facility] offers sequential screenings for women who are interested in screenings for chromosomal abnormalities and certain defects during a . The sequential screen combines ultrasound and blood tests to determine the risk of chromosomal abnormalities, including Down's Syndrome (Trisomy 21) and Trisomy 18, as well as open neural tube defects including spina bifida. Ultrasound examination is performed between 11 weeks and 13 weeks gestational age. Blood tests are drawn after the ultrasound and again later in the between 15 and 21 weeks gestational age. Please let your physician know if you are interested in this testing. It will require an appointment with our nursery technician. This is not an ultrasound performed by a physician in our office during a routine visit. SIGNS AND SYMPTOMS OF LABOR 1. Contractions every 10 minutes or more often 2. Clear, pink, or brownish fluid (water) leaking from vagina 3. Feeling that baby is pushing down, pressure 4. Low, dull backache 5. Cramps that feel like a period 6. Cramps with or without diarrhea If you notice any of the above symptoms, contact our office at [phone] and ask to speak with a nurse. After hours, you can call doctors registry at [phone] OR call [facility] at [phone] and ask to have the doctor retail seasonal specialist paged. If you consider this an emergency, dial 9-1-1 or go to your nearest emergency department. NEED HELP? Are you dealing with a violent or abusive relationship? Are you a victim of rape or sexual assult? Call [facility] ([place]) 24 hour Crisis Hotline: 574.726.9822 or 044-269-9969. MANUAL Your Guide to a Healthy manual is now on-line. Visit [email or web address] to download your free copy documented in this encounter [facility] 01-31-2025 Telephone encounter Note Most fasting and 1 hour PP BS are normal. Please encourage diet compliance and walking after meals. Tahmina Dumont MD [facility] 01-31-2025 Miscellaneous Notes Most fasting and 1 hour PP BS are normal. Please encourage diet compliance and walking after meals. Tahmina Dumont MD 31w3d Patient has her next OB visit on Thursday, but concerned about her blood sugars. Would like someone to review today. Can you please review. Thank you. Marietta Werner RN documented in this encounter [facility] 01-31-2025 Telephone encounter Note 31w3d Patient has her next OB visit on Thursday, but concerned about her blood sugars. Would like someone to review today. Can you please review. Thank you. Marietta Werner RN [facility] 01-23-2025 Telephone encounter Note The [employer] message sent to patient per request. Tatyana Aponte RN [facility] 01-23-2025 Miscellaneous Notes [employer] message sent to patient per request. Tatyana Aponte RN We do not recommend diflucan during . But if this is all she can take then I can send it in. If she does not have a true allergy, she can attempt Monistat 7. It does cause discomfort as the medication is treating. She can read the fact sheet as well for diflucan. Fluconazole (Diflucan ) - Gilles Reno APRN.CNM Patient 30w2d calling with complaints of yeast infection symptoms since Thursday, 01/20. Patient states she is having vaginal itching along with a milky discharge. Denies any bleeding, leaking, odor or dysuria. Discussed Monistat 7 OTC treatment with patient, patient states she can't use Monistat because when she was in 2020 she used it and it caused horrible vaginal swelling. Patient is asking for Diflucan. Tatyana Aponte RN documented in this encounter [facility] 01-23-2025 Telephone encounter Note We do not recommend diflucan during . But if this is all she can take then I can send it in. If she does not have a true allergy, she can attempt Monistat 7. It does cause discomfort as the medication is treating. She can read the fact sheet as well for diflucan. Fluconazole (Diflucan ) - Gilles Reno APRN.CNM [facility] 01-23-2025 Note Addended by: SOPHIA HAMILTON on: 01/23/2025 12:35 PM Modules accepted: Orders [facility] 01-23-2025 Miscellaneous Notes Addended by: SOPHIA HAMILTON on: 01/23/2025 12:35 PM Modules accepted: Orders Surgery request pending. Please complete and will contact [facility] to get tentatively scheduled. Sophia Hamilton RN Patient 30w2d, has upcoming appointment on 02/06 with you. FYI. Tatyana Aponte RN documented in this encounter [facility] 01-23-2025 Telephone encounter Note Surgery request pending. Please complete and will contact [facility] to get tentatively scheduled. Sophia Hamilton RN [facility] 01-23-2025 Telephone encounter Note Patient 30w2d, has upcoming appointment on 02/06 with you. FYI. Tatyana Aponte RN [facility] 01-23-2025 Telephone encounter Note Patient 30w2d calling with complaints of yeast infection symptoms since Thursday, 01/20. Patient states she is having vaginal itching along with a milky discharge. Denies any bleeding, leaking, odor or dysuria. Discussed Monistat 7 OTC treatment with patient, patient states she can't use Monistat because when she was in 2020 she used it and it caused horrible vaginal swelling. Patient is asking for Diflucan. Tatyana Aponte RN [facility] 01-21-2025 Note HNO ID: [id number] Author: MARIETTA LUGO MD Service: ? Author Type: Physician Type: Progress Notes Filed: 01/21/2025 11:45 Note Text: NST SUMMARY PROVIDER ASSESSMENT AND INTERPRETATION Indications for NST: Decreased Movement Baseline: 140 Variability: Moderate Accelerations: Present 10 X 10 Decelerations: None Interpretation: Reactive SIGNATURE: Marietta Lugo MD [facility] 01-21-2025 History of Presen t illness Narrative NST SUMMARY PROVIDER ASSESSMENT AND INTERPRETATION Indications for NST: Decreased Movement Baseline: 140 Variability: Moderate Accelerations: Present 10 X 10 Decelerations: None Interpretation: Reactive SIGNATURE: Marietta Lugo MD documented in this encounter [facility] 01-21-2025 Progress note Formatting of t his note might be different from the original. S: Leelee Zamora is a 29 year old female who presents at 04/01/2025, by Last Menstrual Period for a routine visit. Denies headache, visual changes, chest pain, shortness of breath, vaginal bleeding, leakage of fluid, or dysuria. Feeling well, no complaints. O: See flow sheet Gen: No apparent distress Abd: Gravid, nontender Complains of decreased movement for the last 2 days. No contractions. Declines LARC ASSESSMENT/PLAN: 1. 29 weeks gestation of ([facility]) - ICD9: V22.2, ICD10: Z3A.29 (primary diagnosis) - NON-STRESS TEST 2. Diet controlled gestational diabetes mellitus (GDM) in third trimester ([facility]) - ICD9: 648.83, ICD10: O24.410 Controlled - few elevated values 3. History of maternal fourth degree perineal laceration, currently ([facility]) - ICD9: V23.49, ICD10: O09.299 Primary 4. Supervision of high risk in third trimester ([facility]) - ICD9: V23.9, ICD10: O09.93 5. Obesity affecting in second trimester, unspecified obesity type ([facility]) - ICD9: 649.13, ICD10: O99.212 Growth q 4 NSTs at 32 weeks 6. Decreased movements in second trimester, single or unspecified fetus ([facility]) - ICD9: 655.73, ICD10: O36.8120 - NON-STRESS TEST Marietta Lugo MD [facility] 01-21-2025 Miscellaneous Notes S: Leelee Zamora is a 29 year old female who presents at 04/01/2025, by Last Menstrual Period for a routine visit. Denies headache, visual changes, chest pain, shortness of breath, vaginal bleeding, leakage of fluid, or dysuria. Feeling well, no complaints. O: See flow sheet Gen: No apparent distress Abd: Gravid, nontender Complains of decreased movement for the last 2 days. No contractions. Declines LARC ASSESSMENT/PLAN: 1. 29 weeks gestation of ([facility]) - ICD9: V22.2, ICD10: Z3A.29 (primary diagnosis) - NON-STRESS TEST 2. Diet controlled gestational diabetes mellitus (GDM) in third trimester ([facility]) - ICD9: 648.83, ICD10: O24.410 Controlled - few elevated values 3. History of maternal fourth degree perineal laceration, currently ([facility]) - ICD9: V23.49, ICD10: O09.299 Primary 4. Supervision of high risk in third trimester ([facility]) - ICD9: V23.9, ICD10: O09.93 5. Obesity affecting in second trimester, unspecified obesity type (HCC) - ICD9: 649.13, ICD10: O99.212 Growth q 4 NSTs at 32 weeks 6. Decreased movements in second trimester, single or unspecified fetus ([facility]) - ICD9: 655.73, ICD10: O36.8120 - NON-STRESS TEST Marietta Lugo MD documented in this encounter [facility] 01-20-2025 Instructions Madelin Swanson MA - 01/20/2025 11:37 AM EDT SEQUENTIAL SCREENINGS The [facility] offers sequential screenings for women who are interested in screenings for chromosomal abnormalities and certain defects during a . The sequential screen combines ultrasound and blood tests to determine the risk of chromosomal abnormalities, including Down's Syndrome (Trisomy 21) and Trisomy 18, as well as open neural tube defects including spina bifida. Ultrasound examination is performed between 11 weeks and 13 weeks gestational age. Blood tests are drawn after the ultrasound and again later in the between 15 and 21 weeks gestational age. Please let your physician know if you are interested in this testing. It will require an appointment with our nursery technician. This is not an ultrasound performed by a physician in our office during a routine visit. SIGNS AND SYMPTOMS OF LABOR 1. Contractions every 10 minutes or more often 2. Clear, pink, or brownish fluid (water) leaking from vagina 3. Feeling that baby is pushing down, pressure 4. Low, dull backache 5. Cramps that feel like a period 6. Cramps with or without diarrhea If you notice any of the above symptoms, contact our office at [phone] and ask to speak with a nurse. After hours, you can call doctors registry at [phone] OR call [facility] at [phone] and ask to have the doctor retail seasonal specialist paged. If you consider this an emergency, dial 9-1-1 or go to your nearest emergency department. NEED HELP? Are you dealing with a violent or abusive relationship? Are you a victim of rape or sexual assult? Call [facility] ([place]) 24 hour Crisis Hotline: 500.797.3161 or 278-967-9923. MANUAL Your Guide to a Healthy manual is now on-line. Visit [email or web address] to download your free copy documented in this encounter [facility] 01-10-2025 Telephone encounter Note Patient notified and voiced understanding. Appointment given for next week in office to review BS log. Tatyana Aponte RN [facility] 01-10-2025 Miscellaneous Notes Patient notified and voiced understanding. Appointment given for next week in office to review BS log. Tatyana Aponte RN BS log reviewed and majority of BS are normal. Patient just had diabetic education today. Please encourage her to follow the dietary recommendations. It seems that some of her PP breakfast levels are elevated so with some dietary adjustments those could be corrected. Please have her follow up with a BS log in I week to review. Tahmina Dumont MD Pt in office and notified of need to get appointments scheduled. Pt saw AT today. Pt was at front desk host asking to speak to the nurse stating she was under the impression she was needing prescription medication for the GDM, but this was not discussed. Leelee had appt with elementary educator today; However, when this RN asked if she was willing to see Butter Maker, Pt states she has the information, but is not interested at this time. Advised Pt to eat high protein meals and avoid high sugary foods. Pt states she has the GDM information re: target ranges and this RN advised her to send her blood sugars weekly to provider via [employer] and if any questions/concerns to call office. Pt handed this RN blood glucose readings from 12/31/24-01/10/25 and copy placed on KJ desk for review. Please advise. Left message for patient to call office. Sophia Hamilton RN Tahmina Dumont MD to [facility] Ob-Assistant Professor Of Psychology Pool 01/10/25 12:53 PM Result Note Growth in four weeks Tahmina Dumont MD OBSTETRIC ULTRASOUND [facility] documented in this encounter [facility] 01-10-2025 Telephone encounter Note BS log reviewed and majority of BS are normal. Patient just had diabetic education today. Please encourage her to follow the dietary recommendations. It seems that some of her PP breakfast levels are elevated so with some dietary adjustments those could be corrected. Please have her follow up with a BS log in I week to review. Tahmina Dumont MD [facility] 01-10-2025 Telephone encounter Note Pt in office and notified of need to get appointments scheduled. Pt saw AT today. Pt was at front desk host asking to speak to the nurse stating she was under the impression she was needing prescription medication for the GDM, but this was not discussed. Leelee had appt with elementary educator today; However, when this RN asked if she was willing to see Butter Maker, Pt states she has the information, but is not interested at this time. Advised Pt to eat high protein meals and avoid high sugary foods. Pt states she has the GDM information re: target ranges and this RN advised her to send her blood sugars weekly to provider via [employer] and if any questions/concerns to call office. Pt handed this RN blood glucose readings from 12/31/24-01/10/25 and copy placed on KJ desk for review. Please advise. [facility] 01-10-2025 Telephone encounter Note Left message for patient to call office. Sophia Hamilton RN [facility] 01-10-2025 Telephone encounter Note Tahmina Dumont MD to [facility] Ob-Assistant Professor Of Psychology Pool 01/10/25 12:53 PM Result Note Growth in four weeks Tahmina Dumont MD OBSTETRIC ULTRASOUND [facility]I [facility] 01-10-2025 Note HNO ID: [id number] Author: MIRTA SANTOS RN Service: ? Author Type: Registered Nurse Type: Progress Notes Filed: 01/10/2025 13:12 Note Text: DIABETES CARE AND EDUCATION VISIT Location: [facility] Type of visit: In person individual PATIENT'S MAIN CONCERN TODAY: GDM Support person present for education today: daughter Cognitive ability: Alert and oriented Motivation to learn: Interested Learning barriers identified by educator: none Method of instruction: written, verbal, and demonstration DIABETES FINDINGS: Monitoring: Reviewed basic monitoring of sugars Meal Planning: reviewed basic 175g recommended diet Medications: reviewed use of insulin in as most common method Problem Solving:hypoglycemia and hyperglycemia discussed Physical Activity: benefits reviewed Reducing Risks: importance of controlling level of blood sugar to avoid complications HANDOUTS: Healthy You: Diabetes and LEARNING RESPONSE: Healthy eating: Demonstrated understanding/competency today or at previous visit Being active: Demonstrated understanding/competency today or at previous visit Monitoring glucose: Demonstrated understanding/competency today or at previous visit POSSIBLE FUTURE TOPICS: 1. DIABETES CARE AND EDUCATION PLAN: Education completed and annual diabetes education follow-up visit recommended Time Spent (Minutes): 30 This visit note will be communicated to the healthcare provider via access to shared medical record. SIGNATURE: Mirta Santos RN PATIENT NAME: Leelee Zamora DATE: January 10, 2025 TIME: 11:56 AM [facility] 01-10-2025 History of Presen t illness Narrative DIABETES CARE AND EDUCATION VISIT Location: [place] Type of visit: In person individual PATIENT'S MAIN CONCERN TODAY: GDM Support person present for education today: daughter Cognitive ability: Alert and oriented Motivation to learn: Interested Learning barriers identified by educator: none Method of instruction: written, verbal, and demonstration DIABETES FINDINGS: Monitoring: Reviewed basic monitoring of sugars Meal Planning: reviewed basic 175g recommended diet Medications: reviewed use of insulin in as most common method Problem Solving:hypoglycemia and hyperglycemia discussed Physical Activity: benefits reviewed Reducing Risks: importance of controlling level of blood sugar to avoid complications HANDOUTS: Healthy You: Diabetes and LEARNING RESPONSE: Healthy eating: Demonstrated understanding/competency today or at previous visit Being active: Demonstrated understanding/competency today or at previous visit Monitoring glucose: Demonstrated understanding/competency today or at previous visit POSSIBLE FUTURE TOPICS: 1. DIABETES CARE AND EDUCATION PLAN: Education completed and annual diabetes education follow-up visit recommended Time Spent (Minutes): 30 This visit note will be communicated to the healthcare provider via access to shared medical record. SIGNATURE: Mirta Santos RN PATIENT NAME: Leelee Zamora DATE: January 10, 2025 TIME: 11:56 AM documented in this encounter [facility] 01-10-2025 Note Indication Evaluation of growth. Gestational diabetes - diet controlled, Maternal obesity, BMI >35 Impression - Single, live, intrauterine . - The biometry is consistent with the assigned gestational dating. - The EFW is 1320 g, at the 59%. AC is at the 56%. - The amniotic fluid volume is normal amount with an MVP of 4.2 cm and an OMARI of 12.3 cm. - The placenta is posterior. - No malformations visualized on a limited survey as detailed below. Recommendations Growth in four weeks Maternal Assessment Height 157 cm Height (ft) 5 ft Height (in) 2 in Physical Exam Initial weight (lb) 204 lb Initial BMI 37.31 kg/m Maternal assessment other: 2 Para 1 Method Transabdominal ultrasound examination, Color Doppler examination. View: Suboptimal view: limited by position Roach . Number of fetuses: 1 Dating LMP on: 06/25/2024 GA by LMP 28 w + 3 d MJ by LMP: 04/01/2025 GA by prior assessment 28 w + 3 d MJ by prior assessment: 04/01/2025 Ultrasound examination on: 01/10/2025 GA by U/S based upon: AC, BPD, Femur, HC GA by U/S 29 w + 1 d MJ by U/S: 03/27/2025 Assigned: based on stated MJ, selected on 11/15/2024 Assigned GA 28 w + 3 d Assigned MJ: 04/01/2025 General Evaluation Cardiac activity present. FHR 144 bpm. movements: present. Presentation: cephalic Placenta: Placental site: posterior Umbilical cord: Cord vessels: 3 vessel cord Amniotic fluid: Amount of AF: normal amount. MVP 4.2 cm. OMARI 12.3 cm. Q1 4.2 cm, Q2 2.7 cm, Q3 2.9 cm, Q4 2.5 cm Growth Overview Exam date GA BPD (mm) HC (mm) AC (mm) FL (mm) HL (mm) EFW (g) 11/15/2024 20w 3d 47.9 52% 175.1 37% 158.3 62% 33.8 71% 31 45% 368 57% 01/10/2025 28w 3d 73.5 72% 272 66% 246.2 56% 54.7 75% 1320 59% Biometry Standard BPD 73.5 mm 29w 3d 72% Hadlock OFD 95.0 mm 28w 0d 53% Nicolaides HC 272.0 mm 29w 1d 66% Arcadio AC 246.2 mm 28w 6d 56% Hadlock Femur 54.7 mm 29w 0d 75% Arcadio EFW 1,320 g 28w 5d 59% Hadlock EFW (lb) 2 lb EFW (oz) 15 oz EFW by: Hadlock (HC-AC-FL) Extended Supervisor [employer] 4.7 mm Extremities / Bony Struc FL / HC 0.20 Other Structures FHR 144 bpm Anatomy Lateral ventricles: normal Cavum septi pellucidi: normal Cerebellum: normal Cisterna magna: normal 4-chamber view: suboptimally visualized RVOT view: suboptimally visualized LVOT view: suboptimally visualized 3-vessel view: suboptimally visualized Heart / Thorax Situs: situs solitus (normal) Diaphragm: normal Stomach: normal Kidneys: suboptimally visualized Bladder: normal sex: male Wants to know sex: yes Performed By: Fay Gould RDMS Read By: Winter Nation M.D. [facility] 01-10-2025 Progress note Formatting of t his note might be different from the original. Patient presents at 29 w 1 day with a complex GDM: FBS-95/ PPs 81-206 meeting with endocrine today. Dietary modifications discussed. Denies regular ctrx, bleeding or lof, CHO or vision changes Seen in L&D 4 days ago- cx: LCT SONo: report pending EFW 58%/ OMARI 12 cm ASSESSMENT/PLAN: 1. Supervision of high risk in second trimester - ICD9: V23.9, ICD10: O09.92 (primary diagnosis) - GESTATIONAL GLUCOSE SCREEN, 1-HOUR, 50 GRAM, NON-FASTING - SYPHILIS TREPONEMAL W/REFLEX - ANEMIA REFLEX PANEL 2. Obesity affecting in second trimester, unspecified obesity type - ICD9: 649.13, ICD10: O99.212 Growth q 4 weeks NSTs at 36 weeks - GESTATIONAL GLUCOSE SCREEN, 1-HOUR, 50 GRAM, NON-FASTING - SYPHILIS TREPONEMAL W/REFLEX - ANEMIA REFLEX PANEL 3. History of maternal fourth degree perineal laceration, currently - ICD9: V23.49, ICD10: O09.299 Planned primary c/s at [facility] - GESTATIONAL GLUCOSE SCREEN, 1-HOUR, 50 GRAM, NON-FASTING - SYPHILIS TREPONEMAL W/REFLEX - ANEMIA REFLEX PANEL 4. Acute deep vein thrombosis (DVT) of right upper extremity, unspecified vein (HCC) - ICD9: 453.82, ICD10: I82.621 - GESTATIONAL GLUCOSE SCREEN, 1-HOUR, 50 GRAM, NON-FASTING - SYPHILIS TREPONEMAL W/REFLEX - ANEMIA REFLEX PANEL 5. Rectovaginal fistula - ICD9: 619.1, ICD10: N82.3 - GESTATIONAL GLUCOSE SCREEN, 1-HOUR, 50 GRAM, NON-FASTING - SYPHILIS TREPONEMAL W/REFLEX - ANEMIA REFLEX PANEL 6. Liver hemangioma - ICD9: 228.04, ICD10: D18.03 - GESTATIONAL GLUCOSE SCREEN, 1-HOUR, 50 GRAM, NON-FASTING - SYPHILIS TREPONEMAL W/REFLEX - ANEMIA REFLEX PANEL 7. 24 weeks gestation of - ICD9: V22.2, ICD10: Z3A.24 - GESTATIONAL GLUCOSE SCREEN, 1-HOUR, 50 GRAM, NON-FASTING - SYPHILIS TREPONEMAL W/REFLEX - ANEMIA REFLEX PANEL 8. Endocrinology today Christofer Ayala MD [facility] Work Phone: 01-10-2025 Miscellaneous Notes Patient presents at 29 w 1 day with a complex GDM: FBS-95/ PPs 81-206 meeting with endocrine today. Dietary modifications discussed. Denies regular ctrx, bleeding or lof, CHO or vision changes Seen in L&D 4 days ago- cx: LCT SONo: report pending EFW 58%/ OMARI 12 cm ASSESSMENT/PLAN: 1. Supervision of high risk in second trimester - ICD9: V23.9, ICD10: O09.92 (primary diagnosis) - GESTATIONAL GLUCOSE SCREEN, 1-HOUR, 50 GRAM, NON-FASTING - SYPHILIS TREPONEMAL W/REFLEX - ANEMIA REFLEX PANEL 2. Obesity affecting in second trimester, unspecified obesity type - ICD9: 649.13, ICD10: O99.212 Growth q 4 weeks NSTs at 36 weeks - GESTATIONAL GLUCOSE SCREEN, 1-HOUR, 50 GRAM, NON-FASTING - SYPHILIS TREPONEMAL W/REFLEX - ANEMIA REFLEX PANEL 3. History of maternal fourth degree perineal laceration, currently - ICD9: V23.49, ICD10: O09.299 Planned primary c/s at [facility] - GESTATIONAL GLUCOSE SCREEN, 1-HOUR, 50 GRAM, NON-FASTING - SYPHILIS TREPONEMAL W/REFLEX - ANEMIA REFLEX PANEL 4. Acute deep vein thrombosis (DVT) of right upper extremity, unspecified vein (HCC) - ICD9: 453.82, ICD10: I82.621 - GESTATIONAL GLUCOSE SCREEN, 1-HOUR, 50 GRAM, NON-FASTING - SYPHILIS TREPONEMAL W/REFLEX - ANEMIA REFLEX PANEL 5. Rectovaginal fistula - ICD9: 619.1, ICD10: N82.3 - GESTATIONAL GLUCOSE SCREEN, 1-HOUR, 50 GRAM, NON-FASTING - SYPHILIS TREPONEMAL W/REFLEX - ANEMIA REFLEX PANEL 6. Liver hemangioma - ICD9: 228.04, ICD10: D18.03 - GESTATIONAL GLUCOSE SCREEN, 1-HOUR, 50 GRAM, NON-FASTING - SYPHILIS TREPONEMAL W/REFLEX - ANEMIA REFLEX PANEL 7. 24 weeks gestation of - ICD9: V22.2, ICD10: Z3A.24 - GESTATIONAL GLUCOSE SCREEN, 1-HOUR, 50 GRAM, NON-FASTING - SYPHILIS TREPONEMAL W/REFLEX - ANEMIA REFLEX PANEL 8. Endocrinology today Christofer Ayala MD documented in this encounter [facility] 01-10-2025 Note HNO ID: [id number] Author: THERESA BYNUM LPN Service: ? Author Type: LICENSED NURSE Type: Progress Notes Filed: 01/18/2025 09:55 Note Text: Patient identified by name and date of . Leelee Zamora presents today for a vaccination of Tdap. Patient denies an allergy to latex: yes Patient denies a severe (life-threatening) allergy to a previous dose of Tdap, DTP, DTaP, DT or Td vaccine. Yes Patient denies history of epilepsy or neurological problems: Yes Patient is afebrile and denies being moderately or severely ill: Yes Patient denies history of Guillain-P[place] Syndrome (a severe paralytic illness): Yes Tdap Adacel injection was given without incident. See immunizations for details of immunizations administered today. VIS sheet provided: Yes Provider Dr Ayala was present in office at time of injection. Michelle Trent MA [facility] 01-10-2025 History of Presen t illness Narrative Patient identified by name and date of . Leelee Zamora presents today for a vaccination of Tdap. Patient denies an allergy to latex: yes Patient denies a severe (life-threatening) allergy to a previous dose of Tdap, DTP, DTaP, DT or Td vaccine. Yes Patient denies history of epilepsy or neurological problems: Yes Patient is afebrile and denies being moderately or severely ill: Yes Patient denies history of Guillain-P[place] Syndrome (a severe paralytic illness): Yes Tdap Adacel injection was given without incident. See immunizations for details of immunizations administered today. VIS sheet provided: Yes Provider Dr Ayala was present in office at time of injection. Michelle Trent MA documented in this encounter [facility] 01-09-2025 Telephone encounter Note Agree with L&D eval [facility] Work Phone: 01-09-2025 Miscellaneous Notes Agree with L&D eval 28w2d Patient called to report that her 37 lb daughter jumped directly on her abdomen causing the patient to have serve pain that radiated up to her arm pits. Denies LOF or VB that she is aware of, but hasn't checked. Has not felt movement since it happened. Directed to go to L&D for evaluation. RH positive. Patient states it will take her an hour and half to get to L&D because she needs to get ready. Stressed the importance of receiving early care and to try and get there sooner. L&D notified. Marietta Werner, TERRY documented in this encounter [facility] 01-09-2025 Telephone encounter Note 28w2d Patient called to report that her 37 lb daughter jumped directly on her abdomen causing the patient to have serve pain that radiated up to her arm pits. Denies LOF or VB that she is aware of, but hasn't checked. Has not felt movement since it happened. Directed to go to L&D for evaluation. RH positive. Patient states it will take her an hour and half to get to L&D because she needs to get ready. Stressed the importance of receiving early care and to try and get there sooner. L&D notified. Marietta Werner, TERRY [facility] 01-05-2025 Telephone encounter Note 27w5d Patient called stating that today is day 3 of having contraction like pain. Rates pain a 4-5, but states she has a high pain tolerance. Pain is intermittent. Its in her abdomen and low back. Denies LOF or VB. Believes that she is losing part of her mucous plug because she has solid chunks of yellow/green tissue. States she spoke with provider retail seasonal specialist as was instructed to rest, put her feet up, and push fluids. If her pain did not improve she was to go to L&D. Patient did not follow this advice. Calling this morning to see what she should do. Spoke with JG. Patient to go to L&D for evaluation. [facility] L&D notified. Marietta Werner RN [facility] 01-05-2025 Miscellaneous Notes 27w5d Patient called stating that today is day 3 of having contraction like pain. Rates pain a 4-5, but states she has a high pain tolerance. Pain is intermittent. Its in her abdomen and low back. Denies LOF or VB. Believes that she is losing part of her mucous plug because she has solid chunks of yellow/green tissue. States she spoke with provider retail seasonal specialist as was instructed to rest, put her feet up, and push fluids. If her pain did not improve she was to go to L&D. Patient did not follow this advice. Calling this morning to see what she should do. Spoke with JG. Patient to go to L&D for evaluation. [facility] L&D notified. Marietta Werner RN documented in this encounter [facility] 12-30-2024 Telephone encounter Note Patient notified she no longer needs the last two glucose levels of the 3 hour GTT drawn. Lab notified. Patient notified of instructions. States she had GDM with last and declined diabetic education and crossbow maker appointments for now. She has u/s already scheduled for 01/10/25 at time of her next visit. [facility] 12-30-2024 Miscellaneous Notes Patient notified she no longer needs the last two glucose levels of the 3 hour GTT drawn. Lab notified. Patient notified of instructions. States she had GDM with last and declined diabetic education and crossbow maker appointments for now. She has u/s already scheduled for 01/10/25 at time of her next visit. Abnormal 3 hour, consistent with GDM. Supplies ordered. Nutrition consult and diabetes consult placed. Growth ultrasounds every 4 weeks at diagnosis ordered. Patient to bring glucose logs to next appointment. Stephani Aaron APRN.YADI documented in this encounter [facility] 12-30-2024 Telephone encounter Note Abnormal 3 hour, consistent with GDM. Supplies ordered. Nutrition consult and diabetes consult placed. Growth ultrasounds every 4 weeks at diagnosis ordered. Patient to bring glucose logs to next appointment. Stephani Aaron APRN.CNP [facility] 12-22-2024 Telephone encounter Note Patient notified. Marietta Werner RN [facility] 12-22-2024 Miscellaneous Notes Patient notified. Marietta Werner RN [facility] does not provide formal US at this stage of . Please have her keep her formal US as scheduled on 01/10/25. Tahmina Dumont MD 25w5d [facility] They advised patient that her amniotic fluid looks low and the baby is all scrunched in there. Patient anxious and asking what she should do. Normal fluid level at her anatomy on 11/15. [facility] told patient that they would not be able to fax the report to our office. Asked patient to speak with them and see what the reading physician reports about her scan. Please advise. Marietta Werner RN documented in this encounter [facility] 12-22-2024 Telephone encounter Note [facility] does not provide formal US at this stage of . Please have her keep her formal US as scheduled on 01/10/25. Tahmina Dumont MD [facility] 12-22-2024 Telephone encounter Note 25w5d Patient had an ultrasound done at the [facility]. They advised patient that her amniotic fluid looks low and the baby is all scrunched in there. Patient anxious and asking what she should do. Normal fluid level at her anatomy on 11/15. [facility] told patient that they would not be able to fax the report to our office. Asked patient to speak with them and see what the reading physician reports about her scan. Please advise. Marietta Werner RN [facility] 12-19-2024 Telephone encounter Note 2nd risk assessment form submitted 12/19/2024. Marietta Cobb RN [facility] 12-19-2024 Miscellaneous Notes 2nd risk assessment form submitted 12/19/2024. Marietta Cobb RN documented in this encounter [facility] 12-15-2024 Progress note Formatting of t his note might be different from the original. S: Leelee Zamora is a 29 year old female who presents at 04/01/2025, by Last Menstrual Period for a routine visit. Denies headache, visual changes, chest pain, shortness of breath, vaginal bleeding, leakage of fluid, or dysuria. Feeling well, no complaints. Good movement, No contractions O: See flow sheet Gen: No apparent distress Abd: Gravid, nontender Reviewed labs for next visit Getting low BG. Eating q 4 hours otherwise feels sick ASSESSMENT/PLAN: 1. Supervision of high risk in second trimester - ICD9: V23.9, ICD10: O09.92 (primary diagnosis) - GESTATIONAL GLUCOSE SCREEN, 1-HOUR, 50 GRAM, NON-FASTING - SYPHILIS TREPONEMAL W/REFLEX - ANEMIA REFLEX PANEL 2. Obesity affecting in second trimester, unspecified obesity type - ICD9: 649.13, ICD10: O99.212 Growth q 4 weeks NSTs at 36 weeks - GESTATIONAL GLUCOSE SCREEN, 1-HOUR, 50 GRAM, NON-FASTING - SYPHILIS TREPONEMAL W/REFLEX - ANEMIA REFLEX PANEL 3. History of maternal fourth degree perineal laceration, currently - ICD9: V23.49, ICD10: O09.299 Planned primary c/s at [facility] - GESTATIONAL GLUCOSE SCREEN, 1-HOUR, 50 GRAM, NON-FASTING - SYPHILIS TREPONEMAL W/REFLEX - ANEMIA REFLEX PANEL 4. Acute deep vein thrombosis (DVT) of right upper extremity, unspecified vein (HCC) - ICD9: 453.82, ICD10: I82.621 - GESTATIONAL GLUCOSE SCREEN, 1-HOUR, 50 GRAM, NON-FASTING - SYPHILIS TREPONEMAL W/REFLEX - ANEMIA REFLEX PANEL 5. Rectovaginal fistula - ICD9: 619.1, ICD10: N82.3 - GESTATIONAL GLUCOSE SCREEN, 1-HOUR, 50 GRAM, NON-FASTING - SYPHILIS TREPONEMAL W/REFLEX - ANEMIA REFLEX PANEL 6. Liver hemangioma - ICD9: 228.04, ICD10: D18.03 - GESTATIONAL GLUCOSE SCREEN, 1-HOUR, 50 GRAM, NON-FASTING - SYPHILIS TREPONEMAL W/REFLEX - ANEMIA REFLEX PANEL 7. 24 weeks gestation of - ICD9: V22.2, ICD10: Z3A.24 - GESTATIONAL GLUCOSE SCREEN, 1-HOUR, 50 GRAM, NON-FASTING - SYPHILIS TREPONEMAL W/REFLEX - ANEMIA REFLEX PANEL 8. Screening for diabetes mellitus - ICD9: V77.1, ICD10: Z13.1 - GESTATIONAL GLUCOSE SCREEN, 1-HOUR, 50 GRAM, NON-FASTING Marietta Lugo MD [facility] 12-15-2024 Miscellaneous Notes S: Leelee Zamora is a 29 year old female who presents at 04/01/2025, by Last Menstrual Period for a routine visit. Denies headache, visual changes, chest pain, shortness of breath, vaginal bleeding, leakage of fluid, or dysuria. Feeling well, no complaints. Good movement, No contractions O: See flow sheet Gen: No apparent distress Abd: Gravid, nontender Reviewed labs for next visit Getting low BG. Eating q 4 hours otherwise feels sick ASSESSMENT/PLAN: 1. Supervision of high risk in second trimester - ICD9: V23.9, ICD10: O09.92 (primary diagnosis) - GESTATIONAL GLUCOSE SCREEN, 1-HOUR, 50 GRAM, NON-FASTING - SYPHILIS TREPONEMAL W/REFLEX - ANEMIA REFLEX PANEL 2. Obesity affecting in second trimester, unspecified obesity type - ICD9: 649.13, ICD10: O99.212 Growth q 4 weeks NSTs at 36 weeks - GESTATIONAL GLUCOSE SCREEN, 1-HOUR, 50 GRAM, NON-FASTING - SYPHILIS TREPONEMAL W/REFLEX - ANEMIA REFLEX PANEL 3. History of maternal fourth degree perineal laceration, currently - ICD9: V23.49, ICD10: O09.299 Planned primary c/s at [facility] - GESTATIONAL GLUCOSE SCREEN, 1-HOUR, 50 GRAM, NON-FASTING - SYPHILIS TREPONEMAL W/REFLEX - ANEMIA REFLEX PANEL 4. Acute deep vein thrombosis (DVT) of right upper extremity, unspecified vein (HCC) - ICD9: 453.82, ICD10: I82.621 - GESTATIONAL GLUCOSE SCREEN, 1-HOUR, 50 GRAM, NON-FASTING - SYPHILIS TREPONEMAL W/REFLEX - ANEMIA REFLEX PANEL 5. Rectovaginal fistula - ICD9: 619.1, ICD10: N82.3 - GESTATIONAL GLUCOSE SCREEN, 1-HOUR, 50 GRAM, NON-FASTING - SYPHILIS TREPONEMAL W/REFLEX - ANEMIA REFLEX PANEL 6. Liver hemangioma - ICD9: 228.04, ICD10: D18.03 - GESTATIONAL GLUCOSE SCREEN, 1-HOUR, 50 GRAM, NON-FASTING - SYPHILIS TREPONEMAL W/REFLEX - ANEMIA REFLEX PANEL 7. 24 weeks gestation of - ICD9: V22.2, ICD10: Z3A.24 - GESTATIONAL GLUCOSE SCREEN, 1-HOUR, 50 GRAM, NON-FASTING - SYPHILIS TREPONEMAL W/REFLEX - ANEMIA REFLEX PANEL 8. Screening for diabetes mellitus - ICD9: V77.1, ICD10: Z13.1 - GESTATIONAL GLUCOSE SCREEN, 1-HOUR, 50 GRAM, NON-FASTING Marietta Lugo MD documented in this encounter [facility] 12-15-2024 Instructions Delmar Sousa MA - 12/15/2024 11:20 AM EST SEQUENTIAL SCREENINGS The [facility] offers sequential screenings for women who are interested in screenings for chromosomal abnormalities and certain defects during a . The sequential screen combines ultrasound and blood tests to determine the risk of chromosomal abnormalities, including Down's Syndrome (Trisomy 21) and Trisomy 18, as well as open neural tube defects including spina bifida. Ultrasound examination is performed between 11 weeks and 13 weeks gestational age. Blood tests are drawn after the ultrasound and again later in the between 15 and 21 weeks gestational age. Please let your physician know if you are interested in this testing. It will require an appointment with our nursery technician. This is not an ultrasound performed by a physician in our office during a routine visit. SIGNS AND SYMPTOMS OF LABOR 1. Contractions every 10 minutes or more often 2. Clear, pink, or brownish fluid (water) leaking from vagina 3. Feeling that baby is pushing down, pressure 4. Low, dull backache 5. Cramps that feel like a period 6. Cramps with or without diarrhea If you notice any of the above symptoms, contact our office at [phone] and ask to speak with a nurse. After hours, you can call doctors registry at [phone] OR call [facility] at [phone] and ask to have the doctor retail seasonal specialist paged. If you consider this an emergency, dial or go to your nearest emergency department. NEED HELP? Are you dealing with a violent or abusive relationship? Are you a victim of rape or sexual assult? Call [facility] ([place]) 24 hour Crisis Hotline: 675.205.5997 or 808-485-8777. MANUAL Your Guide to a Healthy manual is now on-line. Visit [email or web address] to download your free copy documented in this encounter [facility] 11-15-2024 Progress note Formatting of t his note might be different from the original. KJ - VB No. LOF No. CTXS Yes - rare. Movement: present. Other c/o: No. Medication list reviewed. Physical Exam See Flow Sheet Gen: no accute distress, well appearing A/P 20w3d Estimated Date of Delivery: 04/01/25 Anatomy US today. Obesity - serial growth US at 28 weeks ordered. MOD - primary for h/o 4th degree laceration with fistula. Plans to delivery at [place]. Tahmina Dumont MD [facility] 11-15-2024 Miscellaneous Notes KJ - VB No. LOF No. CTXS Yes - rare. Movement: present. Other c/o: No. Medication list reviewed. Physical Exam See Flow Sheet Gen: no accute distress, well appearing A/P 20w3d Estimated Date of Delivery: 04/01/25 Anatomy US today. Obesity - serial growth US at 28 weeks ordered. MOD - primary for h/o 4th degree laceration with fistula. Plans to delivery at [place]. Tahmina Dumont MD documented in this encounter [facility] 11-15-2024 Sophia Vásquez RN - 11/15/2024 2:57 PM EST SEQUENTIAL SCREENINGS The [facility] offers sequential screenings for women who are interested in screenings for chromosomal abnormalities and certain defects during a . The sequential screen combines ultrasound and blood tests to determine the risk of chromosomal abnormalities, including Down's Syndrome (Trisomy 21) and Trisomy 18, as well as open neural tube defects including spina bifida. Ultrasound examination is performed between 11 weeks and 13 weeks gestational age. Blood tests are drawn after the ultrasound and again later in the between 15 and 21 weeks gestational age. Please let your physician know if you are interested in this testing. It will require an appointment with our nursery technician. This is not an ultrasound performed by a physician in our office during a routine visit. SIGNS AND SYMPTOMS OF LABOR 1. Contractions every 10 minutes or more often 2. Clear, pink, or brownish fluid (water) leaking from vagina 3. Feeling that baby is pushing down, pressure 4. Low, dull backache 5. Cramps that feel like a period 6. Cramps with or without diarrhea If you notice any of the above symptoms, contact our office at [phone] and ask to speak with a nurse. After hours, you can call [employer] registry at [phone] OR call [facility] at [phone] and ask to have the doctor retail seasonal specialist paged. If you consider this an emergency, dial 4-6-5 or go to your nearest emergency department. NEED HELP? Are you dealing with a violent or abusive relationship? Are you a victim of rape or sexual assult? Call [facility] ([place]) 24 hour Crisis Hotline: 177.164.3960 or 399-790-9650. MANUAL Your Guide to a Healthy manual is now on-line. Visit [email or web address] [email or web address] to download your free copy documented in this encounter [facility] 11-15-2024 Note HNO ID: [id number] Author: WINTER NATION MD Service: ? Author Type: Physician Type: Progress Notes Filed: 11/15/2024 15:46 Note Text: Obstetrics AND Gynecology Irene Maternal Medicine Outpatient Visit Type: Maternal Medicine Consult Outpatient Visit Date: November 15, 2024 Service Time: 2:22 PM Requesting Provider: Tahmina Dumont History of Present Illness: Leelee Zamora is 29 year old at 20w3d presenting for consultation with Maternal- Medicine at [facility] in the setting of history rectovaginal fistula, history of gestational diabetes, personal history of provoked VTE . Patient reported history of prolonged third stage of labor, forceps delivery complicated by fourth degree laceration. This was repaired x 2 by pulmonology technician with development of rectovaginal fistula. She was later repaired x 2 by gynecologic oncology including reported bloodstream infection requiring antibiotics in the ICU. Notes of repaired episiotomy in Care Everywhere include reference to C. Difficile infection as well. Patient reports that subsequent repairs after episiotomy breakdown with Dr. Velazquez at [place] which requiring ileostomy and reversal, these operative records are not available for me to review. History Review Obstetric History T1 L1 SAB0 IAB0 Ectopic0 Multiple0 Live Births1 Comment: Menarche: 11; Age at 1st : 26; Premenopausal LMP- 11/19/23 Name of Baby 1: Not recorded Date: 05/05/21 GA: 39w2d Type: Vaginal, Forceps Apgar1: Not recorded Apgar5: Not recorded Living: Living Name of Baby 2: Not recorded Date: Not recorded GA: Not recorded Type: Not recorded Apgar1: Not recorded Apgar5: Not recorded Living: Not recorded Gynecologic History: History PCOS PAST MEDICAL HISTORY Diagnosis Date Acute deep vein thrombosis (DVT) of popliteal vein of right lower extremity (HCC) 02/2022 ADHD (attention deficit hyperactivity disorder) Allergic rhinitis, unspecified 12/16/2018 Bowel obstruction (HCC) 2022 Chlamydia Diabetes, gestational Encounter for insertion of Mirena IUD 12/24/2021 Ex-smoker 12/16/2018 Started at age 19 up to 1/2-1 PPD, quit 05/2018 SAMAN (generalized anxiety disorder) 12/16/2018 [facility]. History of chlamydia 16 YO History of gastroesophageal reflux (GERD) 12/16/2018 History of maternal fourth degree perineal laceration, currently 08/18/2024 History of morbid obesity Infertility, female Menorrhagia 04/06/2020 had DX hysteroscopy and DANDC PCOS (polycystic ovarian syndrome) Psoriasis 12/16/2018 Vitamin D deficiency 12/16/2018 PAST SURGICAL HISTORY Procedure Laterality Date CYST EXCISION 2016 right leg DANDC, DIAG AND/OR THERAPEUTIC 2020 EXTRACTION, ERUPTED TOOTH OR EXPOSED ROOT (ELEVATION AND/OR FORCEPS REMOVAL) 2012 LAPS SURG CHOLECYSTECTOMY W/CHOLANGIOGRAPHY 10/14/2023 Dr. Macdonald LOCAL REVISION OF ILESTOMY 02/24/2022 LYSIS OF ADHESIONS 10/14/2023 Dr. Macdonald PAST SURGICAL HISTORY OF multiplr vaginoplasty- RV fistual after FAVD AND 4th degree REMOVAL GALLBLADDER 10/14/2023 REPAIR INCISIONAL HERNIA,REDUCIBLE incisional hernia and umbilical hernia repair Current Outpatient Medications on File Prior to Visit Medication Sig aspirin, enteric coated (ECOTRIN LOW STRENGTH) 81 mg EC tablet Take 1 tablet by mouth once daily. lactobacillus comb no.10 20 billion cell cap Take 2 capsules by mouth once daily for 14 days. PNV 867-vwale-rendw-3-fish oil 400-32.5 mcg-mg chew ALLERGIES Allergen Reactions Cat Dander Hives Cranberry Rash House Dust Hives Mold Other: See Comments Peanut Swelling Tree Nuts Rash Morphine Other: See Comments Tightness in chest FAMILY HISTORY Problem Relation Age of Onset Heart disease Mother arythmia Diabetes Father Hypertension Father No Known Problems Sister No Known Problems Sister Kidney Disease Maternal Grandmother other (lupus) Maternal Grandmother Stroke Maternal Grandmother Heart Attack Maternal Grandmother Blood Clots Maternal Grandmother No Known Problems Maternal Grandfather Colon Cancer Paternal Grandmother late 50's Coronary Artery Disease Paternal Grandmother 40's Diabetes Paternal Grandmother Hypertension Paternal Grandmother Diabetes Paternal Grandfather Hypertension Paternal Grandfather Thyroid Cancer Paternal Aunt 52 Cervical Cancer Paternal Aunt Uterine Cancer Paternal Aunt Breast Cancer Paternal Aunt 20 - 29 Ovarian cancer Paternal Aunt 20 - 29 Thyroid Cancer Paternal Aunt 19 resolved Breast Cancer Paternal Aunt 20 - 29 Alzheimer's Disease No Family History Hyperlipidemia No Family History Thyroid No Family History Seizures No Family History Social History Tobacco Use Smoking status: Former Types: Cigarettes Smokeless tobacco: Never Tobacco comments: Stopped smoking cigarettes, Vaping Use Vaping status: current everyday u (more content not included)... [facility] 11-15-2024 History of Presen t illness Narrative Obstetrics & Gynecology Irene Maternal Medicine Outpatient Visit Type: Maternal Medicine Consult Outpatient Visit Date: November 15, 2024 Service Time: 2:22 PM Requesting Provider: Tahmina Dumont History of Present Illness: Leelee Zamora is 29 year old at 20w3d presenting for consultation with Maternal- Medicine at [facility] in the setting of history rectovaginal fistula, history of gestational diabetes, personal history of provoked VTE . Patient reported history of prolonged third stage of labor, forceps delivery complicated by fourth degree laceration. This was repaired x 2 by pulmonology technician with development of rectovaginal fistula. She was later repaired x 2 by gynecologic oncology including reported bloodstream infection requiring antibiotics in the ICU. Notes of repaired episiotomy in Care Everywhere include reference to C. Difficile infection as well. Patient reports that subsequent repairs after episiotomy breakdown with Dr. Velazquez at [place] which requiring ileostomy and reversal, these operative records are not available for me to review. History Review Obstetric History T1 L1 SAB0 IAB0 Ectopic0 Multiple0 Live Births1 Comment: Menarche: 11; Age at 1st : 26; Premenopausal LMP- 11/19/23 Name of Baby 1: Not recorded Date: 05/05/21 GA: 39w2d Type: Vaginal, Forceps Apgar1: Not recorded Apgar5: Not recorded Living: Living Name of Baby 2: Not recorded Date: Not recorded GA: Not recorded Type: Not recorded Apgar1: Not recorded Apgar5: Not recorded Living: Not recorded Gynecologic History: History PCOS PAST MEDICAL HISTORY Diagnosis Date Acute deep vein thrombosis (DVT) of popliteal vein of right lower extremity (HCC) 02/2022 ADHD (attention deficit hyperactivity disorder) Allergic rhinitis, unspecified 12/16/2018 Bowel obstruction (HCC) 2022 Chlamydia Diabetes, gestational Encounter for insertion of Mirena IUD 12/24/2021 Ex-smoker 12/16/2018 Started at age 19 up to 1/2-1 PPD, quit 05/2018 SAMAN (generalized anxiety disorder) 12/16/2018 Seeing Klaus Gonzalez at the [facility] center. History of chlamydia 16 YO History of gastroesophageal reflux (GERD) 12/16/2018 History of maternal fourth degree perineal laceration, currently 08/18/2024 History of morbid obesity Infertility, female Menorrhagia 04/06/2020 had DX hysteroscopy and D&C PCOS (polycystic ovarian syndrome) Psoriasis 12/16/2018 Vitamin D deficiency 12/16/2018 PAST SURGICAL HISTORY Procedure Laterality Date CYST EXCISION 2016 right leg D&C, DIAG AND/OR THERAPEUTIC 2019 EXTRACTION, ERUPTED TOOTH OR EXPOSED ROOT (ELEVATION AND/OR FORCEPS REMOVAL) 2012 LAPS SURG CHOLECYSTECTOMY W/CHOLANGIOGRAPHY 10/14/2023 Dr. Macdonald LOCAL REVISION OF ILESTOMY 02/24/2022 LYSIS OF ADHESIONS 10/14/2023 Dr. Macdonald PAST SURGICAL HISTORY OF multiplr vaginoplasty- RV fistual after FAVD & 4th degree REMOVAL GALLBLADDER 10/14/2023 REPAIR INCISIONAL HERNIA,REDUCIBLE incisional hernia and umbilical hernia repair Current Outpatient Medications on File Prior to Visit Medication Sig aspirin, enteric coated (ECOTRIN LOW STRENGTH) 81 mg EC tablet Take 1 tablet by mouth once daily. lactobacillus comb no.10 20 billion cell cap Take 2 capsules by mouth once daily for 14 days. PNV 102-hztte-siepf-3-fish oil 400-32.5 mcg-mg chew ALLERGIES Allergen Reactions Cat Dander Hives Cranberry Rash House Dust Hives Mold Other: See Comments Peanut Swelling Tree Nuts Rash Morphine Other: See Comments Tightness in chest FAMILY HISTORY Problem Relation Age of Onset Heart disease Mother arythmia Diabetes Father Hypertension Father No Known Problems Sister No Known Problems Sister Kidney Disease Maternal Grandmother other (lupus) Maternal Grandmother Stroke Maternal Grandmother Heart Attack Maternal Grandmother Blood Clots Maternal Grandmother No Known Problems Maternal Grandfather Colon Cancer Paternal Grandmother late 50's Coronary Artery Disease Paternal Grandmother 40's Diabetes Paternal Grandmother Hypertension Paternal Grandmother Diabetes Paternal Grandfather Hypertension Paternal Grandfather Thyroid Cancer Paternal Aunt 52 Cervical Cancer Paternal Aunt Uterine Cancer Paternal Aunt Breast Cancer Paternal Aunt 20 - 29 Ovarian cancer Paternal Aunt 20 - 29 Thyroid Cancer Paternal Aunt 19 resolved Breast Cancer Paternal Aunt 20 - 29 Alzheimer's Disease No Family History Hyperlipidemia No Family History Thyroid No Family History Seizures No Family History Social History Tobacco Use Smoking status: Former Types: Cigarettes Smokeless tobacco: Never Tobacco comments: Stopped smoking cigarettes, Vaping Use Vaping status: current everyday user Start date: 05/25/2024 Substances: Nicotine, Flavoring Devices: Disposable Substance Use Topics Alcohol use: Not Currently Alcohol/week: 1.0 standard drink of alcohol Types: 1 Cans of beer per week Comment: monthly Drug use: No Review of Systems: Feeling some lower pelvic pressure recently without contractions or pain The patient denies bleeding, leakage of fluid, contractions, back pain, nausea, heartburn, headache, SOB, chest pain, and palpitations. Physical Exam: Gen: Well appearing, in no acute distress. Lungs: Non-labored breathing on room air Abd: Abdomen soft, non-tender during US exam SVE: Deferred SSE:Deferred Legs: Moving spontaneously, no significant bilateral edema. Labs: Labs within 120 days: WBC Date Value Ref Range Status 09/05/2024 7.92 3.70 - 11.00 k/uL Final Hemoglobin Date Value Ref Range Status 09/05/2024 13.1 11.5 - 15.5 g/dL Final Hematocrit Date Value Ref Range Status 09/05/2024 39.3 36.0 - 46.0 % Final Platelet Count Date Value Ref Range Status 09/05/2024 280 150 - 400 k/uL Final Comment: No clot detected. Hemoglobin A1C Date Value Ref Range Status 09/05/2024 4.7 4.3 - 5.6 % Final Comment: [place] [employer] guidelines indicate that patients with HgbA1c in the range 5.7-6.4% are at increased risk for development of diabetes, and intervention by lifestyle modification may be beneficial. HgbA1c greater or equal to 6.5% is considered diagnostic of diabetes. Estimated Average Glucose Date Value Ref Range Status 09/05/2024 88 mg/dL Final Comment: eAG: (Estimated average glucose) is a calculated value from HgbA1c and is insurance sales representative of the average blood glucose level in the last 2-3 month period. Ultrasound today shows: - Single, live, intrauterine . - biometry is consistent with the established gestational age. - No malformations were visualized on a complete detailed anatomic survey. - The amniotic fluid volume is normal amount. - The placenta is posterior, fundal. - The Transabdominal cervical length measures 39.4 mm with no evidence of funneling or other dynamic changes. - Not all structural malformations can be detected by ultrasound examination. Assessment and Plan: 29 year old at 20w3d with the following issues. Please see my counseling and recommendations documented in problem-based charting below. Problem List Items Addressed This Visit Cardiovascular Liver hemangioma Overview MRI: 09/2023 Current Assessment & Plan 2.2 cm on MRI These can respond to estrogen so monitoring during a is indicated. In rare cases, liver hemangiomas can cause complications during , but most are asymptomatic and resolve on their own Endocrinology History of gestational diabetes in prior , currently - Primary Overview First trimester hemoglobin A1c 4.7 - 09/05/2024 Hematology Acute deep vein thrombosis (DVT) of right upper extremity (HCC) Overview She had DVT of popliteal vein of right lower extremity in February 2022 post op ileostomy when she was bedridden. 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 Primary delivery recommended Current Assessment & Plan Primary has been recommended and patient agreeable to pCS Unless additional medical indications arise would recommend 39 week primary If tertiary center preferred patient may be schedule at [facility], [facility] or [facility] per her preference Rectovaginal fistula Overview Repaired History of forceps delivery in prior , currently Current Assessment & Plan Offered [employer] referral today, patient considering and will contact us if interested Other Obesity complicating , second trimester Overview - Pre BMI 37 - Plan for growth q 4 weeks at 28 weeks - Weekly NSTs at 36 weeks. Patient should continue care with her general OBGYN, please re consult should new issues or questions arise. Consultation requested by Dr. Dumont for an opinion regarding complications. My final recommendations will be communicated back to the requesting physician by way of shared Medical record or letter to requesting physician via US mail. I spent a total of 55 minutes on the date of the service which included preparing to see the patient, [id number] patient care, completing clinical documentation, obtaining and/or reviewing separately obtained history, and communicating results to the patient/family/caregiver. I shared my findings and recommendations via the shared medical record or via the mail to the referring provider. Winter Nation MD documented in this encounter [facility] 10-27-2024 Telephone encounter Note Attempted to call patient. Unable to leave message because voicemail not set up. [employer] message sent. Lenin Decker RN [facility] 10-27-2024 Miscellaneous Notes Attempted to call patient. Unable to leave message because voicemail not set up. [employer] message sent. Lenin Decker RN Noted. OK to keep next appointment as scheduled. Tahmina Dumont MD 17w4d Patient was seen at [facility] ER yesterday because she fell. States that an ultrasound was done and the ER physician consulted with Dr. Dumont. Patient concerned because the ER stated that the fetus was very low in pelvis and resting on the cervix. Patient has an anatomy US on 11/15/24. Advised a note would be sent to POLLY to review when she returns to the office tomorrow. Marietta Werner RN documented in this encounter [facility] 10-27-2024 Telephone encounter Note Noted. OK to keep next appointment as scheduled. Tahmina Dumont MD [facility] 10-26-2024 Telephone encounter Note 17w4d Patient was seen at [facility] ER yesterday because she fell. States that an ultrasound was done and the ER physician consulted with Dr. Dumont. Patient concerned because the ER stated that the fetus was very low in pelvis and resting on the cervix. Patient has an anatomy US on 11/15/24. Advised a note would be sent to POLLY to review when she returns to the office tomorrow. Marietta Werner RN [facility] 10-20-2024 Progress note Formatting of t his note might be different from the original. POLLY - VB No. LOF No. CTXS No. Movement: present. Other c/o: She has questions about timing of . Medication list reviewed. Physical Exam See Flow Sheet Gen: no accute distress, well appearing Abd: soft, nontender, gravid TAUS: active fetus with fca A/P 16w5d Estimated Date of Delivery: 04/01/25 Anatomy US ordered H/o 4th degree laceration with fistula - plan for primary . MFM consult to discuss delivery timing. Note given for dental work. Tahmina Dumont MD [facility] 10-20-2024 Miscellaneous Notes KJ - VB No. LOF No. CTXS No. Movement: present. Other c/o: She has questions about timing of . Medication list reviewed. Physical Exam See Flow Sheet Gen: no accute distress, well appearing Abd: soft, nontender, gravid TAUS: active fetus with fca A/P 16w5d Estimated Date of Delivery: 04/01/25 Anatomy US ordered H/o 4th degree laceration with fistula - plan for primary . MFM consult to discuss delivery timing. Note given for dental work. Tahmina Dumont MD documented in this encounter [facility] 10-20-2024 Instructions Michelle Mcgee MA - 10/20/2024 10:21 AM EST SEQUENTIAL SCREENINGS The [facility] offers sequential screenings for women who are interested in screenings for chromosomal abnormalities and certain defects during a . The sequential screen combines ultrasound and blood tests to determine the risk of chromosomal abnormalities, including Down's Syndrome (Trisomy 21) and Trisomy 18, as well as open neural tube defects including spina bifida. Ultrasound examination is performed between 11 weeks and 13 weeks gestational age. Blood tests are drawn after the ultrasound and again later in the between 15 and 21 weeks gestational age. Please let your physician know if you are interested in this testing. It will require an appointment with our nursery technician. This is not an ultrasound performed by a physician in our office during a routine visit. SIGNS AND SYMPTOMS OF LABOR 1. Contractions every 10 minutes or more often 2. Clear, pink, or brownish fluid (water) leaking from vagina 3. Feeling that baby is pushing down, pressure 4. Low, dull backache 5. Cramps that feel like a period 6. Cramps with or without diarrhea If you notice any of the above symptoms, contact our office at [phone] and ask to speak with a nurse. After hours, you can call doctors registry at [phone] OR call [facility] at [phone] and ask to have the doctor retail seasonal specialist paged. If you consider this an emergency, dial [phone] or go to your nearest emergency department. NEED HELP? Are you dealing with a violent or abusive relationship? Are you a victim of rape or sexual assult? Call [facility] ([place]) 24 hour Crisis Hotline: 175.121.4119 or 471-487-6297. MANUAL Your Guide to a Healthy manual is now on-line. Visit [email or web address] to download your free copy documented in this encounter [facility] 10-17-2024 Telephone encounter Note Order signed and faxed. Tatyana Aponte RN [facility] 10-17-2024 Miscellaneous Notes Order signed and faxed. Tatyana Aponte RN Breast pump request received via [employer]. Order to provider to sign. Tatyana Aponte RN documented in this encounter [facility] 10-13-2024 Telephone encounter Note Breast pump request received via [employer]. Order to provider to sign. Tatyana Aponte RN [facility] 10-12-2024 Note HNO ID: [id number] Author: NUNO MADRID PA-C Service: ? Author Type: Physician Supervisor [employer] Type: Progress Notes Filed: 10/12/2024 15:19 Note Text: Subjective Leelee Zamora is a 29 year old female with a past medical history of GERD, DVT, PCOS, and anxiety who presents to [facility] care today for evaluation of left-sided facial pain and swelling for the past couple days. Patient states that she had a virtual visit on 10/07/2024 and was diagnosed with a dental abscess and given a prescription for amoxicillin. She states that she has been taking this as prescribed however this morning she noticed an area of redness developing on her left cheek that has been getting increasingly larger throughout the day today. Review of Systems Constitutional: Negative for chills, diaphoresis and fever. HENT: Positive for dental problem (left upper dental pain). Skin: Positive for rash (redness to left side of face). All other systems reviewed and are negative. Objective BP 117/81 Pulse 83 Temp 36.7 ?C (98 ?F) Resp 18 Wt 106.6 kg (235 lb 0.2 oz) LMP 06/25/2024 (Exact Date) SpO2 100% BMI 42.98 kg/m? Physical Exam Vitals reviewed. Constitutional: General: She is not in acute distress. Appearance: Normal appearance. She is normal weight. She is not ill-appearing or toxic-appearing. Comments: The patient appears to be non-toxic, in no acute distress, and resting comfortably on the table. HENT: Head: Normocephalic and atraumatic. Mouth/Throat: Dentition: Dental tenderness (left upper) present. Eyes: Extraocular Movements: Extraocular movements intact. Cardiovascular: Rate and Rhythm: Normal rate and regular rhythm. Heart sounds: Normal heart sounds. No murmur heard. No friction rub. No gallop. Musculoskeletal: General: Normal range of motion. Cervical back: Normal range of motion. Skin: General: Skin is warm and dry. Findings: Erythema (left facial) present. No rash. Neurological: General: No focal deficit present. Mental Status: She is alert and oriented to person, place, and time. Mental status is at baseline. Psychiatric: Mood and Affect: Mood normal. Behavior: Behavior normal. Thought Content: Thought content normal. Assessment and Plan Examination of the oropharynx reveals left upper dental tenderness with no abscess noted. There is an area of erythema, warmth, and mild tenderness to the left cheek concerning for early cellulitis. Patient counseled regarding suspected diagnosis and advised to discontinue amoxicillin. Patient given a prescription for Keflex. Advised to follow-up with her primary care provider as needed. ASSESSMENT/PLAN: 1. Facial cellulitis - ICD9: 682.0, ICD10: L03.211 - CEPHALEXIN 500 MG CAPSULE - LACTOBACILLUS COMBINATION NO.10 20 BILLION CELL CAPSULE Medical Decision Making: Problems: Low: Acute, uncomplicated illness or injury Risk: Minimal: Minimal risk from testing/treatment Moderate: Drug management Medical Decision Making Level: 3 - Low I spent a total of 20 minutes on the date of the service which included preparing to see the patient, [id number] patient care, completing clinical documentation, performing a medically appropriate examination, counseling and educating the patient/family/caregiver, and ordering medications, tests, or procedures. Nuno Madrid PA-C [facility] 10-12-2024 History of Presen t illness Narrative Subjective Leelee Zamora is a 29 year old female with a past medical history of GERD, DVT, PCOS, and anxiety who presents to express care today for evaluation of left-sided facial pain and swelling for the past couple days. Patient states that she had a virtual visit on 10/07/2024 and was diagnosed with a dental abscess and given a prescription for amoxicillin. She states that she has been taking this as prescribed however this morning she noticed an area of redness developing on her left cheek that has been getting increasingly larger throughout the day today. Review of Systems Constitutional: Negative for chills, diaphoresis and fever. HENT: Positive for dental problem (left upper dental pain). Skin: Positive for rash (redness to left side of face). All other systems reviewed and are negative. Objective BP 117/81 Pulse 83 Temp 36.7 C (98 F) Resp 18 Wt 106.6 kg (235 lb 0.2 oz) LMP 06/25/2024 (Exact Date) SpO2 100% BMI 42.98 kg/m Physical Exam Vitals reviewed. Constitutional: General: She is not in acute distress. Appearance: Normal appearance. She is normal weight. She is not ill-appearing or toxic-appearing. Comments: The patient appears to be non-toxic, in no acute distress, and resting comfortably on the table. HENT: Head: Normocephalic and atraumatic. Mouth/Throat: Dentition: Dental tenderness (left upper) present. Eyes: Extraocular Movements: Extraocular movements intact. Cardiovascular: Rate and Rhythm: Normal rate and regular rhythm. Heart sounds: Normal heart sounds. No murmur heard. No friction rub. No gallop. Musculoskeletal: General: Normal range of motion. Cervical back: Normal range of motion. Skin: General: Skin is warm and dry. Findings: Erythema (left facial) present. No rash. Neurological: General: No focal deficit present. Mental Status: She is alert and oriented to person, place, and time. Mental status is at baseline. Psychiatric: Mood and Affect: Mood normal. Behavior: Behavior normal. Thought Content: Thought content normal. Assessment and Plan Examination of the oropharynx reveals left upper dental tenderness with no abscess noted. There is an area of erythema, warmth, and mild tenderness to the left cheek concerning for early cellulitis. Patient counseled regarding suspected diagnosis and advised to discontinue amoxicillin. Patient given a prescription for Keflex. Advised to follow-up with her primary care provider as needed. ASSESSMENT/PLAN: 1. Facial cellulitis - ICD9: 682.0, ICD10: L03.211 - CEPHALEXIN 500 MG CAPSULE - LACTOBACILLUS COMBINATION NO.10 20 BILLION CELL CAPSULE Medical Decision Making: Problems: Low: Acute, uncomplicated illness or injury Risk: Minimal: Minimal risk from testing/treatment Moderate: Drug management Medical Decision Making Level: 3 - Low I spent a total of 20 minutes on the date of the service which included preparing to see the patient, [id number] patient care, completing clinical documentation, performing a medically appropriate examination, counseling and educating the patient/family/caregiver, and ordering medications, tests, or procedures. Nuno Madrid PA-C documented in this encounter [facility] 10-11-2024 Note HNO ID: [id number] Author: ELVIA YAN APRN.HOME VISITOR [employer] Service: ? Author Type: Nurse Practitioner Type: Progress Notes Filed: 10/11/2024 08:33 Note Text: Telemedicine Visit - Distance Health Virtual Visit Note Patient seen on Zattoo Video Visit platform. Location of patient: [place] I have communicated my name and active licensure. The patient's identity and physical location were verified at the time of this visit. Either the patient or their legal insurance sales representative has been informed of the risks and benefits of -- and alternatives to -- treatment through a remote evaluation and consents to proceed with the evaluation remotely. History of Present Illness Leelee Zamora is a 29 year old female who presents for complaint of tooth pain. Symptoms have been present for 4 day(s) with symptoms that are: Worsening Patient developed pain in the Left upper last molar. Had a previous filling in that tooth Pain with eating and swelling of face near tooth. Denies fever/chills Patient is currently PAST MEDICAL HISTORY Diagnosis Date Acute deep vein thrombosis (DVT) of popliteal vein of right lower extremity (HCC) 02/2022 ADHD (attention deficit hyperactivity disorder) Allergic rhinitis, unspecified 12/16/2018 Bowel obstruction (HCC) 2022 Chlamydia Diabetes, gestational Encounter for insertion of Mirena IUD 12/24/2021 Ex-smoker 12/16/2018 Started at age 19 up to 1/2-1 PPD, quit 05/2018 SAMAN (generalized anxiety disorder) 12/16/2018 [facility]. History of chlamydia 16 YO History of gastroesophageal reflux (GERD) 12/16/2018 History of maternal fourth degree perineal laceration, currently 08/18/2024 History of morbid obesity Infertility, female Menorrhagia 04/06/2020 had DX hysteroscopy and DANDC PCOS (polycystic ovarian syndrome) Psoriasis 12/16/2018 Vitamin D deficiency 12/16/2018 PAST SURGICAL HISTORY Procedure Laterality Date CYST EXCISION 2016 right leg DANDC, DIAG AND/OR THERAPEUTIC 2020 EXTRACTION, ERUPTED TOOTH OR EXPOSED ROOT (ELEVATION AND/OR FORCEPS REMOVAL) 2013 LAPS SURG CHOLECYSTECTOMY W/CHOLANGIOGRAPHY 10/14/2023 Dr. Macdonald LOCAL REVISION OF ILESTOMY 02/24/2022 LYSIS OF ADHESIONS 10/14/2023 Dr. Macdonald PAST SURGICAL HISTORY OF multiplr vaginoplasty- RV fistual after FAVD AND 4th degree REMOVAL GALLBLADDER 10/14/2023 REPAIR INCISIONAL HERNIA,REDUCIBLE incisional hernia and umbilical hernia repair FAMILY HISTORY Problem Relation Age of Onset Heart disease Mother arythmia Diabetes Father Hypertension Father No Known Problems Sister No Known Problems Sister Kidney Disease Maternal Grandmother other (lupus) Maternal Grandmother Stroke Maternal Grandmother Heart Attack Maternal Grandmother Blood Clots Maternal Grandmother No Known Problems Maternal Grandfather Colon Cancer Paternal Grandmother late 50's Coronary Artery Disease Paternal Grandmother 40's Diabetes Paternal Grandmother Hypertension Paternal Grandmother Diabetes Paternal Grandfather Hypertension Paternal Grandfather Thyroid Cancer Paternal Aunt 52 Cervical Cancer Paternal Aunt Uterine Cancer Paternal Aunt Breast Cancer Paternal Aunt 20 - 29 Ovarian cancer Paternal Aunt 20 - 29 Thyroid Cancer Paternal Aunt 19 resolved Breast Cancer Paternal Aunt 20 - 29 Alzheimer's Disease No Family History Hyperlipidemia No Family History Thyroid No Family History Seizures No Family History Social History Tobacco Use Smoking status: Former Types: Cigarettes Smokeless tobacco: Never Tobacco comments: Stopped smoking cigarettes, Vaping Use Vaping status: current everyday user Start date: 05/25/2024 Substances: Nicotine, Flavoring Devices: Disposable Substance Use Topics Alcohol use: Not Currently Alcohol/week: 1.0 standard drink of alcohol Types: 1 Cans of beer per week Comment: monthly Drug use: No Current Outpatient Medications Medication Sig aspirin, enteric coated (ECOTRIN LOW STRENGTH) 81 mg EC tablet Take 1 tablet by mouth once daily. (Patient not taking: Reported on 09/15/2024) PNV 070-aalou-ggrrg-3-fish oil 400-32.5 mcg-mg chew No current facility-administered medications for this visit. ALLERGIES Allergen Reactions Cat Dander Hives Cranberry Rash House Dust Hives Mold Other: See Comments Peanut Swelling Tree Nuts Rash Morphine Other: See Comments Tightness in chest Video Exam (Examination performed via Video enabled technology) General appearance: Alert, oriented, pleasant, in NAD :Yes Ill appearing :No Lethargic appearing :No Respiratory distress :No Mouth: + erythema and edema around gum line of upper last molar. +erosion of tooth ASSESSMENT/PLAN: 1. Dental abscess - ICD9: 522.5, ICD10: K04.7 - ABX as prescribed - Soft foods - Follow up with dentist in 2-3 days or sooner if symptoms worsen - AMOXICILLIN 875 MG TABLET - Red flags d (more content not included)... [facility] 10-11-2024 History of Presen t illness Narrative Telemedicine Visit - Distance Health Virtual Visit Note Patient seen on Zattoo Video Visit platform. Location of patient: [place] I have communicated my name and active licensure. The patient's identity and physical location were verified at the time of this visit. Either the patient or their legal insurance sales representative has been informed of the risks and benefits of -- and alternatives to -- treatment through a remote evaluation and consents to proceed with the evaluation remotely. History of Present Illness Leelee Zamora is a 29 year old female who presents for complaint of tooth pain. Symptoms have been present for 4 day(s) with symptoms that are: Worsening Patient developed pain in the Left upper last molar. Had a previous filling in that tooth Pain with eating and swelling of face near tooth. Denies fever/chills Patient is currently PAST MEDICAL HISTORY Diagnosis Date Acute deep vein thrombosis (DVT) of popliteal vein of right lower extremity (HCC) 02/2022 ADHD (attention deficit hyperactivity disorder) Allergic rhinitis, unspecified 12/16/2018 Bowel obstruction (HCC) 2022 Chlamydia Diabetes, gestational Encounter for insertion of Mirena IUD 12/24/2021 Ex-smoker 12/16/2018 Started at age 19 up to 1/2-1 PPD, quit 05/2018 SAMAN (generalized anxiety disorder) 12/16/2018 [facility]. History of chlamydia 16 YO History of gastroesophageal reflux (GERD) 12/16/2018 History of maternal fourth degree perineal laceration, currently 08/18/2024 History of morbid obesity Infertility, female Menorrhagia 04/06/2020 had DX hysteroscopy and D&C PCOS (polycystic ovarian syndrome) Psoriasis 12/16/2018 Vitamin D deficiency 12/16/2018 PAST SURGICAL HISTORY Procedure Laterality Date CYST EXCISION 2016 right leg D&C, DIAG AND/OR THERAPEUTIC 2019 EXTRACTION, ERUPTED TOOTH OR EXPOSED ROOT (ELEVATION AND/OR FORCEPS REMOVAL) 2012 LAPS SURG CHOLECYSTECTOMY W/CHOLANGIOGRAPHY 10/14/2023 Dr. Macdonald LOCAL REVISION OF ILESTOMY 02/24/2022 LYSIS OF ADHESIONS 10/14/2023 Dr. Macdonald PAST SURGICAL HISTORY OF multiplr vaginoplasty- RV fistual after FAVD & 4th degree REMOVAL GALLBLADDER 10/14/2023 REPAIR INCISIONAL HERNIA,REDUCIBLE incisional hernia and umbilical hernia repair FAMILY HISTORY Problem Relation Age of Onset Heart disease Mother arythmia Diabetes Father Hypertension Father No Known Problems Sister No Known Problems Sister Kidney Disease Maternal Grandmother other (lupus) Maternal Grandmother Stroke Maternal Grandmother Heart Attack Maternal Grandmother Blood Clots Maternal Grandmother No Known Problems Maternal Grandfather Colon Cancer Paternal Grandmother late 50's Coronary Artery Disease Paternal Grandmother 40's Diabetes Paternal Grandmother Hypertension Paternal Grandmother Diabetes Paternal Grandfather Hypertension Paternal Grandfather Thyroid Cancer Paternal Aunt 52 Cervical Cancer Paternal Aunt Uterine Cancer Paternal Aunt Breast Cancer Paternal Aunt 20 - 29 Ovarian cancer Paternal Aunt 20 - 29 Thyroid Cancer Paternal Aunt 19 resolved Breast Cancer Paternal Aunt 20 - 29 Alzheimer's Disease No Family History Hyperlipidemia No Family History Thyroid No Family History Seizures No Family History Social History Tobacco Use Smoking status: Former Types: Cigarettes Smokeless tobacco: Never Tobacco comments: Stopped smoking cigarettes, Vaping Use Vaping status: current everyday user Start date: 05/25/2024 Substances: Nicotine, Flavoring Devices: Disposable Substance Use Topics Alcohol use: Not Currently Alcohol/week: 1.0 standard drink of alcohol Types: 1 Cans of beer per week Comment: monthly Drug use: No Current Outpatient Medications Medication Sig aspirin, enteric coated (ECOTRIN LOW STRENGTH) 81 mg EC tablet Take 1 tablet by mouth once daily. (Patient not taking: Reported on 09/15/2024) PNV 932-jkgdg-yotad-3-fish oil 400-32.5 mcg-mg chew No current facility-administered medications for this visit. ALLERGIES Allergen Reactions Cat Dander Hives Cranberry Rash House Dust Hives Mold Other: See Comments Peanut Swelling Tree Nuts Rash Morphine Other: See Comments Tightness in chest Video Exam (Examination performed via Video enabled technology) General appearance: Alert, oriented, pleasant, in NAD :Yes Ill appearing :No Lethargic appearing :No Respiratory distress :No Mouth: + erythema and edema around gum line of upper last molar. +erosion of tooth ASSESSMENT/PLAN: 1. Dental abscess - ICD9: 522.5, ICD10: K04.7 - ABX as prescribed - Soft foods - Follow up with dentist in 2-3 days or sooner if symptoms worsen - AMOXICILLIN 875 MG TABLET - Red flags discussed for need for in person care - All questions answered Elvia R Folger, MOBILITY ENGINEER.HOME VISITOR [employer] documented in this encounter [facility] 09-29-2024 Note HNO ID: [id number] Author: TATYANA READ MA Service: ? Author Type: Contract Analyst Type: Progress Notes Filed: 09/29/2024 10:56 Note Text: Scan on 09/28/2024 3:29 PM by ProviderKim PA-C: Consultation - Cardiology [facility] 09-29-2024 History of Presen t illness Narrative Scan on 09/28/2024 3:29 PM by ProviderKim PA-C: Consultation - Cardiology documented in this encounter [facility] 09-28-2024 Evaluation note Diagnosis Onset Date Resolution Dizziness acute September 28, 2024 2:39pm [facility] Work Phone: 1(897) 924-182212-18-2024 Evaluation note* Diagnosis Onset Date Resolution Status Admit Date Dizziness acute September 28, 2024 2:39pm 27 weeks gestation of acute January 05, 2025 10:07am contractions acute 2024 10:07am [facility] Work Phone: 1(581) 482-110612-09-2024 Instructions* Patient Instructions* Madelin Swanson MA - 09/19/2024 8:47 AM EST SEQUENTIAL SCREENINGS The [facility] offers sequential screenings for women who are interested in screenings for chromosomal abnormalities and certain defects during a . The sequential screen combinesultrasound and blood tests to determine the risk of chromosomal abnormalities, including Down's Syndrome (Trisomy 21) and Trisomy 18, as well as open neural tube defects including spina bifida. Ultrasound examination is performed between 11 weeks and 13 weeks gestational age. Blood tests are drawn after the ultrasound and again later in the between 15 and 21 weeks gestational age. Please let your physician know if you are interested in this testing. It will require an appointment withour nursery technician. This is not an ultrasound performed by a physician in our office during a routine visit. SIGNS AND SYMPTOMS OF LABOR 1. Contractions every 10 minutes or more often 2. Clear, pink, or brownish fluid (water) leaking from vagina 3. Feeling that baby is pushing down, pressure 4. Low, dull backache 5. Cramps that feel like a period 6. Cramps with or without diarrhea If you notice any of the above symptoms, contact our office at [phone] and ask to speak with anurse. After hours, you can call doctors registry at [phone] OR call [facility] at [phone] ask to have the doctor retail seasonal specialist paged. If you consider this an emergency, dial 06-12-0 or go to your nearest emergency department. NEED HELP? Are you dealing with a violent or abusive relationship? Are you a victim of rape or sexual assult? Call [facility] ([place]) 24 hour Crisis Hotline: 611.900.3537 or 855-020-3232. MANUAL Your Guide to a Healthy manual is now on-line. Visit [email or web address] to download your free copy [facility] Progress note* Quick Notes - Stephani Aaron APRN.HOME VISITOR [employer] - 09/19/2024 8:29 AM EST EH - S: Leelee is a 29 year old female who presents at 12w2d for a routine visit. Denies headache, visual changes, chest pain, shortness of breath, vaginal bleeding, leakage of fluid. Currently battling RSV. O: See flow sheet Gen: No apparent distress Abd: Gravid, nontender, 20 lb weight gain ASSESSMENT/PLAN: 1. Supervision of high risk in second trimester - ICD9: V23.9, ICD10: O09.92 (primary diagnosis) - + RSV 09/15 - Encouraged fluids and rest 2. 12 weeks gestation of - ICD9: V22.2, ICD10: Z3A.12 - Nuchal today, report pending - [id number] negative 3. Obesity affecting in second trimester, unspecified obesity type - ICD9: 649.13, ICD10:O99.212 - Pre BMI 37 - Start LDA - Plan for 32 week growth q 4 weeks. - Weekly NSTs at 36 weeks. 4. 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 Acute deep vein thrombosis (DVT) of right upper extremity, unspecified vein (HCC) - ICD9: 453.82, ICD10: I82.621 - DVT of popliteal vein of right lower extremity in February 2022 post op ileostomy when she was bedridden. DVT was not related to , post or hormonal contraception - Consider prophylactic anticoagulation Dysuria - ICD9: 788.1, ICD10: R30.0 - Push fluids - URINE CULTURE PTL precautions reviewed. RTO in 4 weeks or sooner as needed. Stephani Aaron APRN.HOME VISITOR [employer] [facility]12-09-2024 Miscellaneous Notes* Quick Notes - Stephani Aaron APRN.HOME VISITOR [employer] - 09/19/2024 8:29 AM EST EH - S: Leelee is a 29 year old female who presents at 12w2d for a routine visit. Denies headache, visual changes, chest pain, shortness of breath, vaginal bleeding, leakage of fluid. Currently battling RSV. O: See flow sheet Gen: No apparent distress Abd: Gravid, nontender, 20 lb weight gain ASSESSMENT/PLAN: 1. Supervision of high risk in second trimester - ICD9: V23.9, ICD10: O09.92 (primary diagnosis) - + RSV 09/15 - Encouraged fluids and rest 2. 12 weeks gestation of - ICD9: V22.2, ICD10: Z3A.12 - Nuchal today, report pending - [id number] negative 3. Obesity affecting in second trimester, unspecified obesity type - ICD9: 649.13, ICD10:O99.212 - Pre BMI 37 - Start LDA - Plan for 32 week growth q 4 weeks. - Weekly NSTs at 36 weeks. 4. 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 Acute deep vein thrombosis (DVT) of right upper extremity, unspecified vein (HCC) - ICD9: 453.82, ICD10: I82.621 - DVT of popliteal vein of right lower extremity in February 2022 post op ileostomy when she was bedridden. DVT was not related to , post or hormonal contraception - Consider prophylactic anticoagulation Dysuria - ICD9: 788.1, ICD10: R30.0 - Push fluids - URINE CULTURE PTL precautions reviewed. RTO in 4 weeks or sooner as needed. Stephani Aaron APRN.YADI [facility] Telephone encounter Note * Telephone Encounter - Zita Robins LPN - 09/16/2024 10:54 AM EST Patient given results and verbalized understanding of instructions given. Zita Robins LPN [facility]12-06-2024 Miscellaneous Notes* Telephone Encounter - Zita Robins LPN - 09/16/2024 10:54 AM EST Patient given results and verbalized understanding of instructions given. Zita Robins LPN * Telephone Encounter - Michael Rosado APRN.CNP - 09/16/2024 7:31 AM EST Please notify positive for rsv. Treat as cold. Refer to pulmonology technician recommended otc medication for relief. F/u for severe or worsening s/s [facility] Telephone encounter Note * Telephone Encounter - Michael Rosado APRN.HOME VISITOR [employer] - 09/16/2024 7:31 AM EST Please notify positive for rsv. Treat as cold. Refer to pulmonology technician recommended otc medication for relief. F/u for severe or worsening s/s [facility] Work Phone: 1(436) 164-856512-05-2024 NoteHNO ID: [id number] Author: MAURO LOVE PA Service: ? Author Type: Physician Supervisor [employer] Type: Progress Notes Filed: 09/15/2024 13:01 Note Text: This note was created using Econodatariter. Subjective Leelee Zamora is a 29 year old female. HPI 29-year-old female presents for cough, congestion, sore throat x 2 days. Patient states she has not had any fevers. Still eating and drinking. Her right ear is slightly itchy and she has had a sore throat for the past few days. Cough is dry. She has nasal congestion. Daughter sick with similar symptoms. She is 12 weeks , has not taken anything [id number]-[id number] for symptoms. No other complaint. PAST MEDICAL HISTORY Diagnosis Date Acute deep vein thrombosis (DVT) of popliteal vein of right lower extremity (HCC) 02/2022 ADHD (attention deficit hyperactivity disorder) Allergic rhinitis, unspecified 12/16/2018 Bowel obstruction (HCC) 2022 Chlamydia Diabetes, gestational Encounter for insertion of Mirena IUD 12/24/2021 Ex-smoker 12/16/2018 Started at age 19 up to 1/2-1 PPD, quit 05/2018 SAMAN (generalized anxiety disorder) 12/16/2018 [facility]. History of chlamydia 16 YO History of gastroesophageal reflux (GERD) 12/16/2018 History of maternal fourth degree perineal laceration, currently 08/18/2024 History of morbid obesity Infertility, female Menorrhagia 04/06/2020 had DX hysteroscopy and DANDC PCOS (polycystic ovarian syndrome)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 Cough, Shortness of breath, Wheezing GASTROINTESTINAL: Negative for: Heartburn, Constipation, Diarrhea, Blood in stool, Vomiting and Positive for: Nausea MUSCULOSKELETAL: Negative for: Muscle or joint pain, stiffness, Joint swelling NEUROLOGIC/PSYCHIATRIC: Negative for: Weakness, Paralysis, Numbness, Tingling, Tremor, Anxiety, Depression, Memory loss SKIN: Negative for: Rash, Itching GENITOURINARY: Negative for: vaginal itching, hematuria or dysuria and +vaginal discharge SENSITIVE EXAM: The sensitive examination was discussed with the Patient or Patient's Authorized Retail Sales Teammate. As applicable, any other physician, advance practice provider, medical student, or other health professional student that will be observing or involved in the sensitive examination for educational or training purposes was discussed with the Patient or Authorized Retail Sales Teammate. The Patient or Authorized Retail Sales Teammate has agreed to proceed with the sensitive examination. (Sensitive examination includes inspection and/or palpation of the breasts, pelvis, prostate and anorectal regions). PHYSICAL EXAM: LMP 06/25/2024 GENERAL: pleasant in no apparent distress DERMATOLOGY: Normal, without lesions, non-icteric, and non-hirsute NECK: Supple, full range of motion, no adenopathy, and thyroid normal CHEST: Normal inspiratory effort BREAST: soft, non-tender, symmetric, no dominant mass, normal nipple-areolar complex, no lymphadenopathy, and no nipple discharge ABDOMEN: soft, non-tender, and no masses NEURO: alert and oriented x3,exam grossly non-focal PELVIS: External genitalia normal without lesions. Perineal body intact. No vaginal or cervical lesions. Cervix closed. No adnexal masses or tenderness. Clinical Pelvimetry: Pelvimetry clinically assessed as adequate Limited OB ultrasound exam: single intrauterine , positive cardiac activity, and POCUS performed. +cardiac activity, CRL consistent with LMP. Jammie Funes APRN.HOME VISITOR HOME BASE HEAD START SBIRT Leelee Zamora was given the 4P's screening tool. Leelee answered as follows: OB Opioid Screening - Last Recorded (since 11/21/2023) Did any of your parents have a problem with alcohol or other drug use? Yes father-ETOH and Drugs Does your partner have a problem with alcohol or other drug use? Yes Pt believes he had issues withETOH and Drugs -clean for 10 years In the past, have you had difficulties in your life because of alcohol or other drugs, including prescription medications? No In the past month have you drunk any alcohol or used other drugs? No Are you taking medication for pain during the either prescribed or not? No Based on the screen and further questions, she is considered at Low risk due to:No past or current use. Positive reinforcement of current behavior. Plan to rescreen early third trimester. Jammie Funes APRN.HOME VISITOR HOME BASE HEAD START ASSESSMENT: 29 year old at 7w4d wks gestational age PLAN: 1) Patient oriented to practice. Patient given new OB orientation folder. Discussed nutrition, folic acid supplementation, dietary guidelines, exercise, smoking, alcohol, caffeine, and drug use. Discussed gestational weight gain guidelines. Discussed routine OB labs including STD/HIV. Discussed how to access Your guide to a health and the Library Clerical Assistant. Reviewed midwifery and vending machine repairer services that are available. 2) Screening: Hemoglobin A1C: ordered Baby Aspirin: The patient has been counseled about the potential benefits of low dose aspirin in and our recommendation that this be offered to all patients, regardless of whether they meet the high risk criteria specified above. She Accepts Aneuploidy Screening: Discussed aneuploidy screening, nuchal translucency/first trimester early anatomy ultrasound and NIPT. The risks/benefits and limitations of NIPT/aneuploidy screening were reviewed including the potential for false negative and false positive results. The availability of genetic counseling was reviewed. Information on aneuploidy screening was provided. The patient chooses toproceed with First trimester early anatomy ultrasound (12-13w6d) and NIPT (10 weeks) Myriad Carrier Screening: Discussed myriad carrier screening. We discussed the availability of professional-society guided carrier screening and reviewed the conditions screened and limitations of screening. The availability of genetic counseling was reviewed. Information on carrier screening was provided. The patient Declines 3) Patient offered option of Virtual Visits. Patient unsure. May consider in future. 4) History of fourth degree laceration: Pt counselled regarding TOLAC versus Repeat Section. Repeat C/S. Obesity (BMI >30), will order early glucose screen or Hemoglobin A1C. Follow up in 4 weeks or sooner almita. Jammie Funes APRN.YADI documented in [facility] encounter[facility] Telephone encounter Note * Telephone Encounter - Katya Tinsley RN - 08/03/2024 1:16 PM EDT Patient calls and states that for the past 4 days she has had liquid diarrhea after she eats or drinks. Patient states that she has had a history of C-diff in 2021. Patient reports that she is 5 weeks and is worried if she would have diarrhea. Advised patient that she needs to come into office to be evaluated. Patient voiced understanding. Patient scheduled to see Cooper tomorrow morning 09/04/2024 to discuss. Advised patient that if she starts to have symptoms of dizziness then she needs to go to ER to be evaluated. Patient voices understanding. Katya Tinsley RN [facility]10-[facility] Miscellaneous Notes* Telephone Encounter - Katya Tinsley RN - 08/03/2024 1:16 PM EDT Patient calls and states that for the past 4 days she has had liquid diarrhea after she eats or drinks. Patient states that she has had a history of C-diff in 2021. Patient reports that she is 5 weeks and is worried if she would have diarrhea. Advised patient that she needs to come into office to be evaluated. Patient voiced understanding. Patient scheduled to see Cooper tomorrow morning 09/04/2024 to discuss. Advised patient that if she starts to have symptoms of dizziness then she needs to go to ER to be evaluated. Patient voices understanding. Katya Tinsley RN documented in this encounterMemorial [facility]24 NoteHNO ID: [id number] Author: ANGELA PAUL MD Service: ? Author Type: Physician Type: Progress Notes Filed: 07/25/2024 13:36 Note Text: Leelee Zamora is a 29 year old female who presents for confirmation. HPI: Patient is here for confirmation. Previous delivery with Dr. Julia Rodas of [place]. 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 H/o DVT post op. Saw a silk folder about 2 weeks ago. Denies DBT during , or while on hormonal contraception. 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 Menstrual cycles q 30 days with 5-6 days bleeding. LMP 06/25/2024 that is exact. Positive urine test at [facility] on 07/22/24. Having some vaginal and pelvic cramping and pressure. No bleeding. 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 History of chlamydia 16 YO History of gastroesophageal reflux (GERD) 12/16/2018 History of morbid obesity PCOS (polycystic ovarian syndrome) Psoriasis 12/16/2018 Vitamin D deficiency 12/16/2018 PAST SURGICAL HISTORY Procedure Laterality Date CYST EXCISION 2016 right leg DANDC, DIAG AND/OR THERAPEUTIC 2019 EXTRACTION, ERUPTED TOOTH OR EXPOSED ROOT (ELEVATION AND/OR FORCEPS REMOVAL) 2012 LAPS SURG CHOLECYSTECTOMY W/CHOLANGIOGRAPHY 10/14/2023 Dr. Macdonald LOCAL REVISION OF ILESTOMY 02/24/2022 LYSIS OF ADHESIONS 10/14/2023 Dr. Macdonald PAST SURGICAL HISTORY OF multiplr vaginoplasty- RV fistual after FAVD AND 4th degree REMOVAL GALLBLADDER 10/14/2023 FAMILY HISTORY Problem Relation Age of Onset Heart disease Mother arythmia Diabetes Father Hypertension Father Thyroid Cancer Paternal Aunt 52 Cervical Cancer Paternal Aunt Uterine Cancer Paternal Aunt Breast Cancer Paternal Aunt 20 - 29 Ovarian cancer Paternal Aunt 20 - 29 Thyroid Cancer Paternal Aunt 19 resolved Breast Cancer Paternal Aunt 20 - 29 Kidney Disease Maternal Grandmother other (lupus) Maternal Grandmother Stroke Maternal Grandmother Heart Attack Maternal Grandmother Blood Clots Maternal Grandmother Colon Cancer Paternal Grandmother late 50's Coronary Artery Disease Paternal Grandmother 40's Diabetes Paternal Grandmother Hypertension Paternal Grandmother Diabetes Paternal Grandfather Hypertension Paternal Grandfather Alzheimer's Disease No Family History Hyperlipidemia No Family History Thyroid No Family History Seizures No Family History Social History Tobacco Use Smoking status: Some Days Types: Cigarettes Smokeless tobacco: Never Tobacco comments: Stopped smoking cigarettes, just uses vape now Vaping Use Vaping status: current everyday user Start date: 05/12/2023 Substances: Nicotine, Flavoring Devices: Disposable Substance Use Topics Alcohol use: Yes Alcohol/week: 1.0 standard drink of alcohol Types: 1 Cans of beer per week Comment: monthly Drug use: No No current outpatient medications on file. No current facility-administered medications for this visit. Allergies As of Date: 07/25/2024 Allergen Noted Reaction TREE NUTS 07/02/2022 Rash MORPHINE 03/23/2017 Other: See Comments Fully Assessed 07/25/2024 REVIEW OF SYSTEMS Abdomen: No abdominal pain, nausea, vomiting, diarrhea. +Constipation Expanded ROS: N/A Allergies and current medication updated:Yes SENSITIVE EXAM: Sensitive exam not performed. EXAM: BP 128/60 Wt 204 lb (92.5kg) LMP 06/25/2024 GENERAL: pleasant, female in no apparent distress HEENT: Normocephalic and atraumatic NECK: full range of motion DERMATOLOGY: Normal, without lesions, non-icteric, and non-hirsute BREAST: deferred CHEST: Normal inspiratory effort ABDOMEN: soft, non-tender, and no masses PELVIC: deferred BIMANUAL: deferred NEURO: exam grossly non-focal EXTREMITIES: normal ASSESSMENT AND PLAN: Assessment AND Plan Early stage of Orders: HCG QUANTITATIVE; Future HCG QUANTITATIVE; Future Follow serial HCG levels. Reviewed ectopic and miscarriage precautions. Recommend early pelvic ultrasound given history of significant adhesive disease, which is risk factor for (more content not included)...[facility] History of Present illness Narrative* Angela Paul MD - 07/25/2024 1:02 PM EDT Leelee Zamora is a 29 year old female who presents for confirmation. HPI: Patient is here for confirmation. Previous delivery with Dr. Julia Rodas of [place]. 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 H/o DVT post op. Saw a silk folder about 2 weeks ago. Denies DBT during , or while on hormonal contraception. 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 Menstrual cycles q 30 days with 5-6 days bleeding. LMP 06/25/2024 that is exact. [facility]. Having some vaginal and pelvic cramping and pressure. No bleeding. 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 center. History of chlamydia 16 YO History of gastroesophageal reflux (GERD) 12/16/2018 History of morbid obesity PCOS (polycystic ovarian syndrome) Psoriasis 12/16/2018 Vitamin D deficiency 12/16/2018 PAST SURGICAL HISTORY Procedure Laterality Date CYST EXCISION 2016 right leg D&C, DIAG AND/OR THERAPEUTIC 2019 EXTRACTION, ERUPTED TOOTH OR EXPOSED ROOT (ELEVATION AND/OR FORCEPS REMOVAL) 2012 LAPS SURG CHOLECYSTECTOMY W/CHOLANGIOGRAPHY 10/14/2023 Dr. Macdonald LOCAL REVISION OF ILESTOMY 02/24/2022 LYSIS OF ADHESIONS 10/14/2023 Dr. Macdonald PAST SURGICAL HISTORY OF multiplr vaginoplasty- RV fistual after FAVD & 4th degree REMOVAL GALLBLADDER 10/14/2023 FAMILY HISTORY Problem Relation Age of Onset Heart disease Mother arythmia Diabetes Father Hypertension Father Thyroid Cancer Paternal Aunt 52 Cervical Cancer Paternal Aunt Uterine Cancer Paternal Aunt Breast Cancer Paternal Aunt 20 - 29 Ovarian cancer Paternal Aunt 20 - 29 Thyroid Cancer Paternal Aunt 19 resolved Breast Cancer Paternal Aunt 20 - 29 Kidney Disease Maternal Grandmother other (lupus) Maternal Grandmother Stroke Maternal Grandmother Heart Attack Maternal Grandmother Blood Clots Maternal Grandmother Colon Cancer Paternal Grandmother late 50's Coronary Artery Disease Paternal Grandmother 40's Diabetes Paternal Grandmother Hypertension Paternal Grandmother Diabetes Paternal Grandfather Hypertension Paternal Grandfather Alzheimer's Disease No Family History Hyperlipidemia No Family History Thyroid No Family History Seizures No Family History Social History Tobacco Use Smoking status: Some Days Types: Cigarettes Smokeless tobacco: Never Tobacco comments: Stopped smoking cigarettes, just uses vape now Vaping Use Vaping status: current everyday user Start date: 05/12/2023 Substances: Nicotine, Flavoring Devices: Disposable Substance Use Topics Alcohol use: Yes Alcohol/week: 1.0 standard drink of alcohol Types: 1 Cans of beer per week Comment: monthly Drug use: No No current outpatient medications on file. No current facility-administered medications for this visit. Allergies As of Date: 07/25/2024 Allergen Noted Reaction TREE NUTS 07/02/2022 Rash MORPHINE 03/23/2017 Other: See Comments Fully Assessed 07/25/2024 REVIEW OF SYSTEMS Abdomen: No abdominal pain, nausea, vomiting, diarrhea. +Constipation Expanded ROS: N/A Allergies and current medication updated:Yes SENSITIVE EXAM: Sensitive exam not performed. EXAM: BP 128/60 Wt 204 lb (92.5kg) LMP 06/25/2024 GENERAL: pleasant, female in no apparent distress HEENT: Normocephalic and atraumatic NECK: full range of motion DERMATOLOGY: Normal, without lesions, non-icteric, and non-hirsute BREAST: deferred CHEST: Normal inspiratory effort ABDOMEN: soft, non-tender, and no masses PELVIC: deferred BIMANUAL: deferred NEURO: exam grossly non-focal EXTREMITIES: normal ASSESSMENT AND PLAN: Assessment & Plan Early stage of Orders: HCG QUANTITATIVE; Future HCG QUANTITATIVE; Future Follow serial HCG levels. Reviewed ectopic and miscarriage precautions. Recommend early pelvic ultrasound given history of significant adhesive disease, which is risk factor for ectopic . History of fourth degree perineal laceration Recommend primary section at tertiary care center. History of gestational diabetes in prior , currently Early hgb A1c. History of DVT (deep vein thrombosis) Established with hematology 2 weeks ago, and await further recommendations. Angela Paul, I spent 20 minutes in the visit, with more than 50% of the total [id number] time of the visit in counseling / coordination of care. documented in this encounterMem[facility]10-[facility] Telephone encounter Note * Telephone Encounter - Marietta Werner RN - 07/22/2024 1:34 PM EDT Attempted to notify patient. No answer and unable to leave a voicemail. Marietta Werner RN [facility]10-11-2024 Miscellaneous Notes* Telephone Encounter - Marietta Werner RN - 07/22/2024 1:34 PM EDT Attempted to notify patient. No answer and unable to leave a voicemail. Marietta Werner RN * Telephone Encounter - Sandhya Reno APRN.CNM - 07/22/2024 1:24 PM EDT Unfortunately patient is not established with us and will need appointment first to discuss. Can review with SW at visit and orders. I apologize. Sandhya Reno APRN.CNM * Telephone Encounter - Lenin Decker RN - 07/22/2024 12:32 PM EDT LMP 06/25/ - 3w6d Had faint UPT at home today. Concerned because last she said she had infertility treatment and has some questions regarding her and being high risk. She is a previous [facility] patient and now wants to continue care with [facility]. I did schedule for 07/25 to discuss concerns with SW, but patient is asking if she can have blood test done prior to that visit to make sure she is . No bleeding, cramping or other symptoms as of now. Lenin Decker RN documented in this encounterMemorial [facility]10-[facility] Telephone encounter Note * Telephone Encounter - Sandhya Reno APRN.CNM - 07/22/2024 1:24 PM EDT Unfortunately patient is not established with us and will need appointment first to discuss. Can review with SW at visit and orders. I apologize. Sandhya Reno APRN.CNM [facility] Work Phone: [phone] Telephone encounter Note* Telephone Encounter - Lenin Decker RN - 07/22/2024 12:32 PM EDT LMP 06/25/ - 3w6d Had faint UPT at home today. Concerned because last she said she had infertility treatment and has some questions regarding her and being high risk. She is a previous [facility] patient and now wants to continue care with [facility]. I did schedule for 07/25 to discuss concerns with SW, but patient is asking if she can have blood test done prior to that visit to make sure she is . No bleeding, cramping or other symptoms as of now. Lenin Decker RN [facility]10-01-[facility] Instructions* Patient Instructions* Angi Santos MD - 07/12/2024 11:24 AM EDT For scheduling questions, please call [phone] (tests and appointments). For symptom management or care coordination questions, please call Humera Stanley at [phone] use my chart to reach us. After hours with medical questions, please call the doctor on-call at [phone]. documented in this encounterMemorial [facility]10-[facility]-2024 NoteHNO ID: [id number] Author: ANGI SANTOS MD Service: ? Author Type: Physician Type: Progress Notes Filed: 08/09/2024 00:02 Note Text: Consultation requested by Darlin Ling APRN.CNP for an opinion regarding history of blood clots. My final recommendations will be communicated back to the requesting physician by way of shared Medical record or letter to requesting physician via US mail. Presenting complaint: Patient Leelee Zamora was sent to my office to be evaluated for history of blood clots. ASSESSMENT: (Z86.718) History of blood clots (primary encounter diagnosis) (I47.9) PT (paroxysmal tachycardia) (HCC) (R79.1) INR (international normal ratio) abnormal (Z87.898) History of syncope Comment: Patient is delightful 29 year old lady, single mother, in college, first childbirth on 04/05/2021 at age 25 years, delivery was complicated with fourth degree laceration after forceps assisted delivery with rectovaginal fistula formation requiring multiple repairs. She had DVT of popliteal vein of right lower extremity in February 2022 post op ileostomy when she was bedridden. DVT was no related to , post or hormonal contraception. She had a lap cholecystectomy with lysis of adhesions on 10/14/2023 with no post op complications. She has history of paroxysmal tachycardia and history of syncope. Patient was seen by plastic surgery for excess skin of abdomen and thighs after weight loss. She has had infections and trouble with ADLs such as wearing clothes and exercising and using nystatin powder for 1 year. Patient was planned for panniculectomy on 08/07/2024. Plan: Based on description of DVT in 2021, it appears that it was provoked by infection and bedridden status during hospital stay. This patient had successful surgical procedures after DVT occurrence, so she might not require any anticoagulation if she has negative hypercoagulable diagnostic panel results. Plan to obtain hypercoagulable diagnostic panel based on young age Plan to obtain coagulation screen and fibrinogen Return if symptoms worsen or fail to improve. I spent 39 minutes in the visit, with more than 50% of the total [id number] time of the visit in counseling / coordination of care. HPI: Patient is delightful 29 year old lady, single mother, in college, first childbirth on 04/05/2021 at age 25 years, delivery was complicated with fourth degree laceration after forceps assisted delivery with rectovaginal fistula formation requiring multiple repairs. She had DVT of popliteal vein of right lower extremity in February 2022 post op ileostomy when she was bedridden. DVT was no related to , post or hormonal contraception. She had a lap cholecystectomy with lysis of adhesions on 10/14/2023 with no post op complications. She has history of paroxysmal tachycardia and history of syncope. Patient was seen by plastic surgery for excess skin of abdomen and thighs after weight loss. She has had infections and trouble with ADLs such as wearing clothes and exercising and using nystatin powder for 1 year. Patient was planned for panniculectomy on 08/07/2024. PAST MEDICAL HISTORY Diagnosis Date Acute deep vein thrombosis (DVT) of popliteal vein of right lower extremity (HCC) 02/2022 Allergic rhinitis, unspecified 12/16/2018 Bowel obstruction (HCC) 2022 Encounter for insertion of Mirena IUD 12/24/2021 Ex-smoker 12/16/2018 Started at age 19 up to 1/2-1 PPD, quit 05/2018 SAMAN (generalized anxiety disorder) 12/16/2018 Seeing Klaus Gonzalez at the [facility] center. History of chlamydia 16 YO History of gastroesophageal reflux (GERD) 12/16/2018 History of morbid obesity PCOS (polycystic ovarian syndrome) Psoriasis 12/16/2018 Vitamin D deficiency 12/16/2018 PAST SURGICAL HISTORY Procedure Laterality Date CYST EXCISION 2016 right leg DANDC, DIAG AND/OR THERAPEUTIC 2020 EXTRACTION, ERUPTED TOOTH OR EXPOSED ROOT (ELEVATION AND/OR FORCEPS REMOVAL) 2012 LAPS SURG CHOLECYSTECTOMY W/CHOLANGIOGRAPHY 10/14/2023 Dr. Macdonald LOCAL REVISION OF ILESTOMY 02/24/2022 LYSIS OF ADHESIONS 10/14/2023 Dr. Macdonald PAST SURGICAL HISTORY OF multiplr vaginoplasty- RV fistual after FAVD AND 4th degree REMOVAL GALLBLADDER 10/14/2023 FAMILY HISTORY Problem Relation Age of Onset Heart disease Mother arythmia Diabetes Father Hypertension Father Thyroid Cancer Paternal Aunt 52 Cervical Cancer Paternal Aunt Uterine Cancer Paternal Aunt Breast Cancer Paternal Aunt 20 - 29 Ovarian cancer Paternal Aunt 20 - 29 Thyroid Cancer Paternal Aunt 19 resolved Breast Cancer Paternal Aunt 20 - 29 Kidney Disease Maternal Grandmother other (lupus) Maternal Grandmother Stroke Maternal Grandmother Heart Attack Maternal Grandmother Blood Clots Maternal Grandmother Colon Cancer Paternal Grandmother late 50's Coronary Artery Disease Paternal Grandmother 40's Diabetes Paternal Grandmother (more content not included)...[facility]10-01-2024 History of Present illness Narrative* Angi Santos MD - 07/12/2024 11:01 AM EDT Consultation requested by Darlin Ling APRN.CNP for an opinion regarding history of blood clots. My final recommendations will be communicated back to the requesting physician by way of shared Medical record or letter to requesting physician via [place] mail. Presenting complaint: Patient Leelee Zamora was sent to my office to be evaluated for history of blood clots. ASSESSMENT: (Z86.718) History of blood clots (primary encounter diagnosis) (I47.9) PT (paroxysmal tachycardia) (HCC) (R79.1) INR (international normal ratio) abnormal (Z87.898) History of syncope Comment: Patient is delightful 29 year old lady, single mother, in college, first childbirth on 04/05/2021 atage 25 years, delivery was complicated with fourth degree laceration after forceps assisted delivery with rectovaginal fistula formation requiring multiple repairs. She had DVT of popliteal vein of right lower extremity in February 2022 post op ileostomy when she was bedridden. DVT was no related to , post or hormonal contraception. She had a lap cholecystectomy with lysis of adhesionson 10/14/2023 with no post op complications. She has history of paroxysmal tachycardia and history ofsyncope. Patient was seen by plastic surgery for excess skin of abdomen and thighs after weight loss. She has had infections and trouble with ADLs such as wearing clothes and exercising and using nystatin powder for 1 year. Patient was planned for panniculectomy on 08/07/2024. Plan: Based on description of DVT in 2021, it appears that it was provoked by infection and bedridden status during hospital stay. This patient had successful surgical procedures after DVT occurrence, so she might not require any anticoagulation if she has negative hypercoagulable diagnostic panel results. Plan to obtain hypercoagulable diagnostic panel based on young age Plan to obtain coagulation screen and fibrinogen Return if symptoms worsen or fail to improve. I spent 39 minutes in the visit, with more than 50% of the total [id number] time of the visit in counseling / coordination of care. HPI: Patient is delightful 29 year old lady, single mother, in college, first childbirth on 04/05/2021 atage 25 years, delivery was complicated with fourth degree laceration after forceps assisted delivery with rectovaginal fistula formation requiring multiple repairs. She had DVT of popliteal vein of right lower extremity in February 2022 post op ileostomy when she was bedridden. DVT was no related to , post or hormonal contraception. She had a lap cholecystectomy with lysis of adhesionson 10/14/2023 with no post op complications. She has history of paroxysmal tachycardia and history ofsyncope. Patient was seen by plastic surgery for excess skin of abdomen and thighs after weight loss. She has had infections and trouble with ADLs such as wearing clothes and exercising and using nystatin powder for 1 year. Patient was planned for panniculectomy on 08/07/2024. PAST MEDICAL HISTORY Diagnosis Date Acute deep vein thrombosis (DVT) of popliteal vein of right lower extremity (HCC) 02/2022 Allergic rhinitis, unspecified 12/16/2018 Bowel obstruction (HCC) 2022 Encounter for insertion of Mirena IUD 12/24/2021 Ex-smoker 12/16/2018 Started at age 19 up to 1/2-1 PPD, quit 05/2018 SAMAN (generalized anxiety disorder) 12/16/2018 [facility]. History of chlamydia 16 YO History of gastroesophageal reflux (GERD) 12/16/2018 History of morbid obesity PCOS (polycystic ovarian syndrome) Psoriasis 12/16/2018 Vitamin D deficiency 12/16/2018 PAST SURGICAL HISTORY Procedure Laterality Date CYST EXCISION 2016 right leg D&C, DIAG AND/OR THERAPEUTIC 2019 EXTRACTION, ERUPTED TOOTH OR EXPOSED ROOT (ELEVATION AND/OR FORCEPS REMOVAL) 2012 LAPS SURG CHOLECYSTECTOMY W/CHOLANGIOGRAPHY 10/14/2023 Dr. Macdonald LOCAL REVISION OF ILESTOMY 02/24/2022 LYSIS OF ADHESIONS 10/14/2023 Dr. Macdonald PAST SURGICAL HISTORY OF multiplr vaginoplasty- RV fistual after FAVD & 4th degree REMOVAL GALLBLADDER 10/14/2023 FAMILY HISTORY Problem Relation Age of Onset Heart disease Mother arythmia Diabetes Father Hypertension Father Thyroid Cancer Paternal Aunt 52 Cervical Cancer Paternal Aunt Uterine Cancer Paternal Aunt Breast Cancer Paternal Aunt 20 - 29 Ovarian cancer Paternal Aunt 20 - 29 Thyroid Cancer Paternal Aunt 19 resolved Breast Cancer Paternal Aunt 20 - 29 Kidney Disease Maternal Grandmother other (lupus) Maternal Grandmother Stroke Maternal Grandmother Heart Attack Maternal Grandmother Blood Clots Maternal Grandmother Colon Cancer Paternal Grandmother late 50's Coronary Artery Disease Paternal Grandmother 40's Diabetes Paternal Grandmother Hypertension Paternal Grandmother Diabetes Paternal Grandfather Hypertension Paternal Grandfather Alzheimer's Disease No Family History Hyperlipidemia No Family History Thyroid No Family History Seizures No Family History SOCIAL HISTORY Social History Tobacco Use Smoking status: Some Days Types: Cigarettes Smokeless tobacco: Never Tobacco comments: Stopped smoking cigarettes, just uses vape now Vaping Use Vaping status: current everyday user Start date: 05/12/2023 Substances: Nicotine, Flavoring Devices: Disposable Substance Use Topics Alcohol use: Yes Alcohol/week: 1.0 standard drink of alcohol Types: 1 Cans of beer per week Comment: monthly Drug use: No ALLERGIES: ALLERGIES Allergen Reactions Tree Nuts Rash Morphine Other: See Comments Tightness in chest MEDICATIONS: No current outpatient medications on file. No current facility-administered medications for this visit. REVIEW OF SYSTEMS: Review of Systems Constitutional: Positive for fatigue. Negative for chills and fever. HENT: Negative for nosebleeds and trouble swallowing. Eyes: Negative for eye problems and icterus. Respiratory: Negative for cough, hemoptysis and shortness of breath. Cardiovascular: Negative for chest pain, leg swelling and palpitations. Gastrointestinal: Negative for abdominal pain and blood in stool. Endocrine: Negative for hot flashes. Genitourinary: Positive for menstrual problem. Negative for difficulty urinating and hematuria. Musculoskeletal: Negative for back pain, flank pain and gait problem. Skin: Negative for rash and wound. Neurological: Negative for gait problem and headaches. Hematological: Negative for adenopathy. Does not bruise/bleed easily. Psychiatric/Behavioral: Negative for confusion and decreased concentration. PHYSICAL EXAMINATION: VITALS: BP 108/88 Pulse 75 Temp 98 Resp 18 Wt 201 lb 15.1 oz (91.6kg) SpO2 100% LMP 06/27/2024 Physical Exam Vitals and nursing note reviewed. Constitutional: General: She is not in acute distress. Appearance: She is not toxic-appearing or diaphoretic. HENT: Head: Normocephalic and atraumatic. Eyes: General: No scleral icterus. Cardiovascular: Rate and Rhythm: Normal rate and regular rhythm. Heart sounds: Normal heart sounds. No murmur heard. Pulmonary: Effort: Pulmonary effort is normal. No respiratory distress. Breath sounds: Normal breath sounds. Abdominal: General: There is no distension. Musculoskeletal: General: No swelling. Cervical back: Neck supple. No rigidity. Lymphadenopathy: Cervical: No cervical adenopathy. Skin: Coloration: Skin is not jaundiced or pale. Neurological: Mental Status: She is alert. Mental status is at baseline. Psychiatric: Mood and Affect: Mood normal. Behavior: Behavior normal. Thought Content: Thought content normal. Judgment: Judgment normal. LABS: 1. WBC Date Value Ref Range Status 07/11/2024 5.87 3.70 - 11.00 k/uL Final RBC Date Value Ref Range Status 07/11/2024 4.38 3.90 - 5.20 m/uL Final Hemoglobin Date Value Ref Range Status 07/11/2024 13.3 11.5 - 15.5 g/dL Final Hematocrit Date Value Ref Range Status 07/11/2024 40.2 36.0 - 46.0 % Final MCV Date Value Ref Range Status 07/11/2024 91.8 80.0 - 100.0 fL Final MCH Date Value Ref Range Status 07/11/2024 30.4 26.0 - 34.0 pg Final MCHC Date Value Ref Range Status 07/11/2024 33.1 30.5 - 36.0 g/dL Final RDW-CV Date Value Ref Range Status 07/11/2024 12.4 11.5 - 15.0 % Final Platelet Count Date Value Ref Range Status 07/11/2024 274 150 - 400 k/uL Final MPV Date Value Ref Range Status 07/11/2024 8.7 (L) 9.0 - 12.7 fL Final Abs Neut Date Value Ref Range Status 07/11/2024 3.93 1.45 - 7.50 k/uL Final Lymphocytes % Date Value Ref Range Status 07/11/2024 25.7 % Final Abs Lymph Date Value Ref Range Status 07/11/2024 1.51 1.00 - 4.00 k/uL Final Monocytes % Date Value Ref Range Status 07/11/2024 6.1 % Final Abs Glacier Date Value Ref Range Status 07/11/2024 0.36 <0.87 k/uL Final Abs Eosin Date Value Ref Range Status 07/11/2024 <0.03 <0.46 k/uL Final Basophils % Date Value Ref Range Status 07/11/2024 0.3 % Final Abs Baso Date Value Ref Range Status 07/11/2024 <0.03 <0.11 k/uL Final 2. Glucose (mg/dL) Date Value 07/11/2024 88 10/26/2015 88 Potassium (mmol/L) Date Value 07/11/2024 3.7 10/26/2015 4.3 Sodium (mmol/L) Date Value 07/11/2024 143 10/26/2015 136 Chloride (mmol/L) Date Value 07/11/2024 106 10/26/2015 98 CO2 (mmol/L) Date Value 07/11/2024 24 10/26/2015 26 Creatinine (mg/dL) Date Value 07/11/2024 0.58 10/26/2015 0.63 BUN (mg/dL) Date Value 07/11/2024 8 10/26/2015 10 Anion Gap (mmol/L) Date Value 07/11/2024 13 10/26/2015 12 Calcium (mg/dL) Date Value 10/26/2015 9.3 Calcium, Total (mg/dL) Date Value 07/11/2024 9.3 Protein, Total (g/dL) Date Value 07/11/2024 6.9 05/26/2017 7.0 Albumin (g/dL) Date Value 07/11/2024 4.4 05/26/2017 4.3 Bilirubin, Total (mg/dL) Date Value 07/11/2024 1.3 05/26/2017 0.4 Alkaline Phosphatase (U/L) Date Value 07/11/2024 53 05/26/2017 55 AST (U/L) Date Value 07/11/2024 13 05/26/2017 13 ALT (U/L) Date Value 07/11/2024 9 05/26/2017 10 Angi Santos MD Cc: Darlin Ling APRN.HOME VISITOR [employer] [facility] Tele[facility] encounter Note * Telephone Encounter - Maria Fernanda Beverly - 06/30/2024 12:14 PM EDT Patient ended up wanting to go to [place]. Patient scheduled [facility]09-19-[facility] Miscellaneous Notes* Telephone Encounter - Maria Fernanda Beverly - 06/30/2024 12:14 PM EDT Patient ended up wanting to go to [facility]. Patient scheduled * Telephone Encounter - Briseida Hui LPN - 06/29/2024 8:42 AM EDT We would need records pertaining to H/O blood clots. There are no records that mention this in [facility]. The only place that I can find this was documented in was an H&P from [facility] 10/01/2023: Acute deep vein thrombosis (DVT) of popliteal vein of right lower extremity (HCC) Assessment: Hx of DVT x 2 - Upper extremity in 2020, LE in 2021. No hypercoagulable work up, but does report mom having high factor VIII. This was not mentioned in the previous surgical H&P from Dr. Nj in 05/2023. I cannot find record of this in [facility] system either. Please provide records so we can schedule patient appropriately. Briseida Hui LPN * Telephone Encounter - Maria Fernanda Beverly - 06/29/2024 8:10 AM EDT Patient is being referred to Hematology DX: History of Blood Clots Insurance: [place] Medicaid Referred by: Darlin Ling APRN. HOME VISITOR [employer] Please review and advise documented in [facility] encounterMem[facility] Note Indication Evaluation of abnormal uterine bleeding: menorrhagia Impression Normal-sized anteverted uterus with no focal abnormality The endometrium measures 4.6 mm in thickness The right ovary was unremarkable The left ovary was normal in size with a 7 mm hemorrhagic corpus luteum A small amount of free fluid was seen in the cul-de-sac Recommendations Clinical correlation as no explanation for the patient's symptoms could be seen on today's ultrasound O-RADS 2. Typical hemorrhagic cyst, premenopausal < 5 cm, no follow up imaging is needed. Menstrual History Cycle: irregular cycle Method Transabdominal, transvaginal, 3D ultrasound examination, Color Doppler examination Uterus Uterus: Visualized Uterus position: anteverted Uterus length 100 mm Uterus width 66 mm Uterus height 49 mm Uterus Vol 170.1 cm Endometrial thickness, total 4.6 mm Right Ovary Rt ovary: Visualized Outline: smooth Rt ovary morphology: premenopausal normal follicular Rt ovary D1 37 mm Rt ovary D2 29 mm Rt ovary D3 27 mm Rt ovary Vol 14.5 cm Left Ovary Lt ovary: Visualized Outline: smooth Lt ovary morphology: premenopausal normal follicular Lt ovary D1 31 mm Lt ovary D2 20 mm Lt ovary D3 21 mm Lt ovary Vol 7.1 cm Lt ovarian corpus luteum: hemorrhagic Lt ovarian corpus luteum D1 8.0 mm Lt ovarian corpus luteum D2 7.0 mm Lt ovarian corpus luteum D3 7.0 mm Lt ovarian cyst(s): Cysts identified Lt ovarian cyst D1 5 mm Lt ovarian cyst D2 5 mm Lt ovarian cyst D3 6 mm Lt ovarian cyst mean 5.3 mm Lt ovarian cyst vol 0.079 cm Lt ovarian cyst findings: corpus albicans Cul de Sac Visualized. free fluid visualized Largest pool 19.0 mm x 13.0 mm x 28.0 mm. Vol 3.621 ml Performed By: Valeri Bustillo RDMS Read By: Kurtis Hardy M.D.MATERNAL [id number] NoteHNO ID: [id number] Author: KURTIS ROTH MD Service: ? Author Type: Physician Type: Progress Notes Filed: 06/30/2024 11:51 Note Text: The patient presents for requested ultrasound. Full report available in the Imaging tab in [facility]. Kurtis Roth [facility]09-19-2024 History of Present illness Narrative* Kurtis Roth MD - 06/30/2024 11:43 AM EDT The patient presents for requested ultrasound. Full report available in the Imaging tab in [facility]. Kurtis Roth MD documented [facility] Telephone encounter Note * Telephone Encounter - Briseida Hui LPN - 06/29/2024 8:42 AM EDT We would need records pertaining to H/O blood clots. There are no records that mention this in [facility]. The only place that I can find this was documented in was an H&P from [facility] 10/01/2023: Acute deep vein thrombosis (DVT) of popliteal vein of right lower extremity (HCC) Assessment: Hx of DVT x 2 - Upper extremity in 2020, LE in 2021. No hypercoagulable work up, but does report mom having high factor VIII. This was not mentioned in the previous surgical H&P from Dr. Nj in 05/2023. I cannot find record of this in [facility] system either. Please provide records so we can schedule patient appropriately. Briseida Hui LPN [facility]09-18-2024 Telephone encounter Note* Telephone Encounter - Davin Maria Fernanda - 06/29/2024 8:10 AM EDT Patient is being referred to Hematology DX: History of Blood Clots Insurance: [place] Medicaid Referred by: Darlin Ling APRN. YADI Please review and advise [facility]09-17-2024 NoteHNO ID: [id number] Author: BUCK SZYMANSKI APRN.YADI Service: ? Author Type: Nurse Practitioner Type: Progress Notes Filed: 06/28/2024 15:46 Note Text: MEDICAL BREAST PATIENT NAME: Leelee Zamora REASON FOR VISIT: Follow up clinical exam HISTORY of PRESENT ILLNESS: Leelee Zamora is a 29 year old year old premenopausal woman who [facility] [place] today for follow up clinical exam. She is an established patient who I last saw on 11/27/23 for evaluation of nipple discharge. Bilateral retro areolar ultrasound were completed at that time with negative findings. She was instructed to avoid all nipple stimulation. Today she reports she has experienced bouts of spontaneous nipple discharge. She also reports engorgement in upper outer area of breast. She has loss 25 lbs with weight loss management and exercise She denies any breast masses, pain or skin changes. She denies any new personal or family medical problems. She was unable to discuss genetic with her PA however she plans to follow up next month She reports for the past couple years she has noticed milky discharge from RIGHT nipple more than left. Discharge is expressed when she feels congestion in nipple and sometimes seem spontaneous. She last expressed nipple discharge 3 weeks ago. It was milky and from multiple ducts. Portions of this encounter note have been copied from my previous note dated, 11/27/23, which has been updated where appropriate and all reflect current medical decision making from today Has Patient had Genetic Testing? No Her vitamin D level was No results found for: VITD25. She takes no supplements. BMD: No PERSONAL BREAST HISTORY: Past breast history (prior to this encounter) is as follows: Breast biopsy: No Breast cysts: No Breast surgery: No Breast cancer: No CANCER SURVEILLANCE: Mammograms: No Breast MRI: No Colonoscopy: No RISK FACTORS FOR BREAST CANCER: Age at the onset of menses: 11 years of age. P: 1 Age at the of first child: 26 years of age. She breast fed for 1 years total. Age at menopause: The patient is not menopausal at this time. Post-menopausal hormone therapy: No She has an intact uterus and ovaries She uses condoms for control. History of Mantle Radiation prior to the age of 30: No Obesity: Yes, 36.18 There is no height or weight on file to calculate BMI. Current Weight: 197 lbs Mammographic density: Unknown Personal History of Benign Atypical Breast Biopsy: No Alcohol use: Rare PAST MEDICAL HISTORY: PAST MEDICAL HISTORY Diagnosis Date Acute deep vein thrombosis (DVT) of popliteal vein of right lower extremity (HCC) 02/2022 Allergic rhinitis, unspecified 12/16/2018 Bowel obstruction (HCC) 2022 Encounter for insertion of Mirena IUD 12/24/2021 Ex-smoker 12/16/2018 Started at age 19 up to 1/-1 PPD, quit 05/2018 SAMAN (generalized anxiety disorder) 12/16/2018 [facility]aus [facility]. History of chlamydia 16 YO History of gastroesophageal reflux (GERD) 12/16/2018 History of morbid obesity PCOS (polycystic ovarian syndrome) Psoriasis 12/16/2018 Vitamin D deficiency 12/16/2018 Patient specifically denies history of: PE, migraine headaches WITH AURA, migraine headaches without aura, abnormal uterine bleeding, abnormal uterine biopsies, osteopenia, and osteoporosis. +DVT PAST SURGICAL HISTORY: PAST SURGICAL HISTORY Procedure Laterality Date CYST EXCISION 2017 right leg DANDC, DIAG AND/OR THERAPEUTIC 2020 EXTRACTION, ERUPTED TOOTH OR EXPOSED ROOT (ELEVATION AND/OR FORCEPS REMOVAL) 2012 LAPS SURG CHOLECYSTECTOMY W/CHOLANGIOGRAPHY 10/14/2023 Dr. Macdonald LOCAL REVISION OF ILESTOMY 02/24/2022 LYSIS OF ADHESIONS 10/14/2023 Dr. Macdonald PAST SURGICAL HISTORY OF multiplr vaginoplasty- RV fistual after FAVD AND 4th degree REMOVAL GALLBLADDER 10/14/2023 SOCIAL HISTORY: Social History Tobacco Use Smoking status: Some Days Types: Cigarettes Smokeless tobacco: Never Tobacco comments: Stopped smoking cigarettes, just uses vape now Vaping Use Vaping status: current everyday user Start date: 05/12/2023 Substances: Nicotine, Flavoring Devices: Disposable Substance Use Topics Alcohol use: Yes Alcohol/week: 1.0 standard drink of alcohol Types: 1 Cans of beer per week Comment: monthly Drug use: No Caffeine intake: 2 cups / day Exercise: Most days <20 minutes FAMILY HISTORY: Family history of breast cancer: PA dx 20's-alive and well, PA dx 20's alive and well Family history of ovarian cancer: PA dx 20's-alive and well Number of sisters: 3 Number of maternal aunts: 1 Number of paternal aunts: 2 Ashkenazi Ancestry: yes 3% Other Cancer: PA dx thyroid cancer in 20's, second PA dx thyroid cancer and PGM dx colon cancer There is no family history of prostate, uterine, pancreatic, gastric, brain, o (more content not included)...[facility]09-17-2024 History of Present illness Narrative* Buck Szymanski APRN.HOME VISITOR [employer] - 06/28/2024 2:37 PM EDT Images from the original note were not included. MEDICAL BREAST PATIENT NAME: Leelee Zamora REASON FOR VISIT: Follow up clinical exam HISTORY of PRESENT ILLNESS: Leelee Zamora is a 29 year old year old premenopausal woman who [facility] [place] today for follow up clinical exam. She is an established patient who I last saw on 11/27/23 for evaluation of nipple discharge. Bilateral retro areolar ultrasound were completed at that time with negative findings. She was instructed to avoid all nipple stimulation. Today she reports she has experienced bouts of spontaneous nipple discharge. She also reports engorgement in upper outer area of breast. She has loss 25 lbs with weight loss management and exercise She denies any breast masses, pain or skin changes. She denies any new personal or family medical problems. She was unable to discuss genetic with her PA however she plans to follow up next month She reports for the past couple years she has noticed milky discharge from RIGHT nipple more than left. Discharge is expressed when she feels congestion in nipple and sometimes seem spontaneous. She last expressed nipple discharge 3 weeks ago. It was milky and from multiple ducts. Portions of this encounter note have been copied from my previous note dated, 11/27/23, which has been updated where appropriate and all reflect current medical decision making from today Has Patient had Genetic Testing? No Her vitamin D level was No results found for: VITD25. She takes no supplements. BMD: No PERSONAL BREAST HISTORY: Past breast history (prior to this encounter) is as follows: Breast biopsy: No Breast cysts: No Breast surgery: No Breast cancer: No CANCER SURVEILLANCE: Mammograms: No Breast MRI: No Colonoscopy: No RISK FACTORS FOR BREAST CANCER: Age at the onset of menses: 11 years of age. P: 1 Age at the of first child: 26 years of age. She breast fed for 1 years total. Age at menopause: The patient is not menopausal at this time. Post-menopausal hormone therapy: No She has an intact uterus and ovaries She uses condoms for control. History of Mantle Radiation prior to the age of 30: No Obesity: Yes, 36.18 There is no height or weight on file to calculate BMI. Current Weight: 197 lbs Mammographic density: Unknown Personal History of Benign Atypical Breast Biopsy: No Alcohol use: Rare PAST MEDICAL HISTORY: PAST MEDICAL HISTORY Diagnosis Date Acute deep vein thrombosis (DVT) of popliteal vein of right lower extremity (HCC) 02/2022 Allergic rhinitis, unspecified 12/16/2018 Bowel obstruction (HCC) 2022 Encounter for insertion of Mirena IUD 12/24/2021 Ex-smoker 12/16/2018 Started at age 19 up to 1/2-1 PPD, quit 05/2018 SAMAN (generalized anxiety disorder) 12/16/2018 [facility] Klaus [facility]. History of chlamydia 16 YO History of gastroesophageal reflux (GERD) 12/16/2018 History of morbid obesity PCOS (polycystic ovarian syndrome) Psoriasis 12/16/2018 Vitamin D deficiency 12/16/2018 Patient specifically denies history of: PE, migraine headaches WITH AURA, migraine headaches without aura, abnormal uterine bleeding, abnormal uterine biopsies, osteopenia, and osteoporosis. +DVT PAST SURGICAL HISTORY: PAST SURGICAL HISTORY Procedure Laterality Date CYST EXCISION 2016 right leg D&C, DIAG AND/OR THERAPEUTIC 2019 EXTRACTION, ERUPTED TOOTH OR EXPOSED ROOT (ELEVATION AND/OR FORCEPS REMOVAL) 2012 LAPS SURG CHOLECYSTECTOMY W/CHOLANGIOGRAPHY 10/14/2023 Dr. Macdonald LOCAL REVISION OF ILESTOMY 02/24/2022 LYSIS OF ADHESIONS 10/14/2023 Dr. Macdonald PAST SURGICAL HISTORY OF multiplr vaginoplasty- RV fistual after FAVD & 4th degree REMOVAL GALLBLADDER 10/14/2023 SOCIAL HISTORY: Social History Tobacco Use Smoking status: Some Days Types: Cigarettes Smokeless tobacco: Never Tobacco comments: Stopped smoking cigarettes, just uses vape now Vaping Use Vaping status: current everyday user Start date: 05/12/2023 Substances: Nicotine, Flavoring Devices: Disposable Substance Use Topics Alcohol use: Yes Alcohol/week: 1.0 standard drink of alcohol Types: 1 Cans of beer per week Comment: monthly Drug use: No Caffeine intake: 2 cups / day Exercise: Most days <20 minutes FAMILY HISTORY: Family history of breast cancer: PA dx 20's-alive and well, PA dx 20's alive and well Family history of ovarian cancer: PA dx 20's-alive and well Number of sisters: 3 Number of maternal aunts: 1 Number of paternal aunts: 2 Ashkenazi Ancestry: yes 3% Other Cancer: PA dx thyroid cancer in 20's, second PA dx thyroid cancer and PGM dx colon cancer There is no family history of prostate, uterine, pancreatic, gastric, brain, or renal cell cancer. There is no family history of melanoma, sarcoma or leukemia. Osteoporosis: None Stroke: MGM Blood Clot: PA Heart attack: MGM Thyroid Nodule or Goiter: PA Autism: None FAMILY HISTORY Problem Relation Age of Onset Heart disease Mother arythmia Diabetes Father Hypertension Father Thyroid Cancer Paternal Aunt 52 Cervical Cancer Paternal Aunt Uterine Cancer Paternal Aunt Breast Cancer Paternal Aunt 20 - 29 Ovarian cancer Paternal Aunt 20 - 29 Thyroid Cancer Paternal Aunt 19 resolved Breast Cancer Paternal Aunt 20 - 29 Kidney Disease Maternal Grandmother other (lupus) Maternal Grandmother Stroke Maternal Grandmother Heart Attack Maternal Grandmother Blood Clots Maternal Grandmother Colon Cancer Paternal Grandmother late 50's Coronary Artery Disease Paternal Grandmother 40's Diabetes Paternal Grandmother Hypertension Paternal Grandmother Diabetes Paternal Grandfather Hypertension Paternal Grandfather Alzheimer's Disease No Family History Hyperlipidemia No Family History Thyroid No Family History Seizures No Family History MEDICATIONS: amoxicillin-clavulanate potassium (AUGMENTIN) 875-125 mg per tablet Take 1 tablet by mouth two times a day for 7 days. atomoxetine (STRATTERA) 10 mg capsule Take 1 capsule by mouth once daily. dulaglutide (TRULICITY) 3 mg/0.5 mL pen injector INJECT 1 PEN SUBCUTANEOUSLY EVERY WEEK TRULICITY 1.5 mg/0.5 mL pen injector Inject 3 mg subcutaneously one time a week topiramate (TOPAMAX) 25 mg tablet Take 4 tablets by mouth once daily. ALLERGIES: ALLERGIES Allergen Reactions Tree Nuts Rash Morphine Other: See Comments Tightness in chest REVIEW OF SYSTEMS: She denies chest pain, shortness of breath, persistent cough, severe headaches, unusual bony pains,abdominal pain or unintentional weight loss. PHYSICAL EXAM: LMP 06/27/2024 (Exact Date) General: well-nourished, healthy, white, female, alert and oriented x 3, calm Skin: warm, dry, skin color, texture, turgor normal Head/Eyes: normocephalic, atraumatic, and anicteric Lymph nodes- The supraclavicular, axillary, and cervical regions are free of significant lymphadenopathy. Right breast-The skin, nipple and areola appear normal. There is no skin dimpling with movement of the pectoralis. There is no nipple retraction. No discharge can be elicited. The parenchya is moderately fibrocystic. There is no dominant masses in the breast. The axillary tail is normal. There is no tenderness noted with palpation. Left breast- The skin, nipple, and areola appear normal. There is no skin dimpling with movement ofthe pectoralis. There is no nipple retraction. No discharge can be elicited. The parenchyma is moderately fibrocystic. There is no dominant masses in the breast. The axillary tail is normal. There isno tenderness noted with palpation. IMAGING: Deferred. Assessment IMPRESSION/PLAN: Leelee Zamora is a 29 year old year old female with bilateral fibrocystic change, increased risk for breast cancer due to FH, nipple discharge, and excess weight There is no evidence of malignancy. The clinical breast findings were discussed in detail. Her data were entered into the Tyrer-Cuzick model for Risk Assessment. Her 10 year projected risk of developing invasive breast cancer is 2.6% and her lifetime risk of breast cancer is estimated to be 28.3%. Per NCCN guided lines I will initiate screening MRI of breast annually with clinical exam every 6 months. The pros and cons of screening MRI have been discussed with the patient including enhanced sensitivity and false positives. She meets [facility] care path criteria for screening MRI. I will order a screening MRI to further assess discharfge. The patient is responsible for getting pre-certification from her insurance company and is advised to ask about a deductible or co-pay. Once this family history is completely validated I will initiate annual mammogram at age 30. We discussed that nipple discharge is a common complaint and that at least 80% of women will experience nipple discharge at least once during their reproductive years. Her discharge is consistent with the physiologic type - bilateral, from multiple duct orifices, and white, green or yellow in color. She is advised to stop expressing the discharge and to return should the discharge become pathologic - spontaneous, unilateral, from a single duct orifice and bloody or serous (clear). Cooper has ordered Prolactin, TSH and additional BW to evaluate discharge. Genetics referral made: Yes: Reason: I reviewed genetic testing for her PA's.s She is in contact with her and will discuss Chemoprevention discussion: Will be deferred until genetics issues are settled. The patient is advised to exercise regularly, achieve/maintain ideal body weight, and to limit alcohol consumption to less than 7 drinks weekly for breast cancer risk reduction and overall health. She was commended on weight loss efforts She will return in one year for annual exam and mammogram, pending MRI results and further follow up with her PA. She will call me in the interim should she have any questions or concerns. I spent a total of 27 minutes on the date of the service which included preparing to see the patient, [id number] patient care, completing clinical documentation, obtaining and/or reviewing separately obtained history, performing a medically appropriate examination, counseling and educating the pat ient/family/caregiver, and ordering medications, tests, or procedures. Buck Szymanski APRN.[facility] Medical Breast Specialist Women's Health Nurse Practitioner CC: Cooper Jordan [address] [facility] [id number] [address] [facility] [place] [address] documented in this encounterMem[facility] Nurse Note* Quinton Caldera MA - 06/28/2024 2:24 PM EDT Last mammogram on: n/a Results: Is the patient active on MyChart Yes Electronically Signed By: Quinton Caldera MA In Department: [facility] REVIEW OF PATIENT HISTORY: OB History T1 L1 SAB0 IAB0 Ectopic0 Multiple0 Live Births1 Comment: Menarche: 11; Age at 1st : 26; Premenopausal LMP- 11/19/23 FAMILY HISTORY Problem Relation Age of Onset Heart disease Mother arythmia Diabetes Father Hypertension Father Thyroid Cancer Paternal Aunt 52 Cervical Cancer Paternal Aunt Uterine Cancer Paternal Aunt Breast Cancer Paternal Aunt 20 - 29 Ovarian cancer Paternal Aunt 20 - 29 Thyroid Cancer Paternal Aunt 19 resolved Breast Cancer Paternal Aunt 20 - 29 Kidney Disease Maternal Grandmother other (lupus) Maternal Grandmother Stroke Maternal Grandmother Heart Attack Maternal Grandmother Blood Clots Maternal Grandmother Colon Cancer Paternal Grandmother late 50's Coronary Artery Disease Paternal Grandmother 40's Diabetes Paternal Grandmother Hypertension Paternal Grandmother Diabetes Paternal Grandfather Hypertension Paternal Grandfather Alzheimer's Disease No Family History Hyperlipidemia No Family History Thyroid No Family History Seizures No Family History PAST MEDICAL HISTORY Diagnosis Date Acute deep vein thrombosis (DVT) of popliteal vein of right lower extremity (HCC) 02/2022 Allergic rhinitis, unspecified 12/16/2018 Bowel obstruction (HCC) 2022 Encounter for insertion of Mirena IUD 12/24/2021 Ex-smoker 12/16/2018 Started at age 19 up to 1/2-1 PPD, quit 05/2018 SAMAN (generalized anxiety disorder) 12/16/2018 [facility]. History of chlamydia 16 YO History of gastroesophageal reflux (GERD) 12/16/2018 History of morbid obesity PCOS (polycystic ovarian syndrome) Psoriasis 12/16/2018 Vitamin D deficiency 12/16/2018 PAST SURGICAL HISTORY Procedure Laterality Date CYST EXCISION 2016 right leg D&C, DIAG AND/OR THERAPEUTIC 2019 EXTRACTION, ERUPTED TOOTH OR EXPOSED ROOT (ELEVATION AND/OR FORCEPS REMOVAL) 2012 LAPS SURG CHOLECYSTECTOMY W/CHOLANGIOGRAPHY 10/14/2023 Dr. Macdonald LOCAL REVISION OF ILESTOMY 02/24/2022 LYSIS OF ADHESIONS 10/14/2023 Dr. Macdonald PAST SURGICAL HISTORY OF multiplr vaginoplasty- RV fistual after FAVD & 4th degree REMOVAL GALLBLADDER 10/14/2023 Social History Tobacco Use Smoking status: Some Days Types: Cigarettes Smokeless tobacco: Never Tobacco comments: Stopped smoking cigarettes, just uses vape now Vaping Use Vaping status: current everyday user Start date: 05/12/2023 Substances: Nicotine, Flavoring Devices: Disposable Substance Use Topics Alcohol use: Yes Alcohol/week: 1.0 standard drink of alcohol Types: 1 Cans of beer per week Comment: monthly Drug use: No [facility]09[facility] Nurse Note* Quinton Caldera MA - 06/28/2024 2:24 PM EDT Last mammogram on: n/a Results: Is the patient active on mValentt Yes Electronically Signed By: Quinton Caldera MA In Department: [facility] REVIEW OF PATIENT HISTORY: OB History T1 L1 SAB0 IAB0 Ectopic0 Multiple0 Live Births1 Comment: Menarche: 11; Age at 1st : 26; Premenopausal LMP- 11/19/23 FAMILY HISTORY Problem Relation Age of Onset Heart disease Mother arythmia Diabetes Father Hypertension Father Thyroid Cancer Paternal Aunt 52 Cervical Cancer Paternal Aunt Uterine Cancer Paternal Aunt Breast Cancer Paternal Aunt 20 - 29 Ovarian cancer Paternal Aunt 20 - 29 Thyroid Cancer Paternal Aunt 19 resolved Breast Cancer Paternal Aunt 20 - 29 Kidney Disease Maternal Grandmother other (lupus) Maternal Grandmother Stroke Maternal Grandmother Heart Attack Maternal Grandmother Blood Clots Maternal Grandmother Colon Cancer Paternal Grandmother late 50's Coronary Artery Disease Paternal Grandmother 40's Diabetes Paternal Grandmother Hypertension Paternal Grandmother Diabetes Paternal Grandfather Hypertension Paternal Grandfather Alzheimer's Disease No Family History Hyperlipidemia No Family History Thyroid No Family History Seizures No Family History PAST MEDICAL HISTORY Diagnosis Date Acute deep vein thrombosis (DVT) of popliteal vein of right lower extremity (HCC) 02/2022 Allergic rhinitis, unspecified 12/16/2018 Bowel obstruction (HCC) 2022 Encounter for insertion of Mirena IUD 12/24/2021 Ex-smoker 12/16/2018 Started at age 19 up to 1/2-1 PPD, quit 05/2018 SAMAN (generalized anxiety disorder) 12/16/2018 [facility]. History of chlamydia 16 YO History of gastroesophageal reflux (GERD) 12/16/2018 History of morbid obesity PCOS (polycystic ovarian syndrome) Psoriasis 12/16/2018 Vitamin D deficiency 12/16/2018 PAST SURGICAL HISTORY Procedure Laterality Date CYST EXCISION 2016 right leg D&C, DIAG AND/OR THERAPEUTIC 2019 EXTRACTION, ERUPTED TOOTH OR EXPOSED ROOT (ELEVATION AND/OR FORCEPS REMOVAL) 2012 LAPS SURG CHOLECYSTECTOMY W/CHOLANGIOGRAPHY 10/14/2023 Dr. Macdonald LOCAL REVISION OF ILESTOMY 02/24/2022 LYSIS OF ADHESIONS 10/14/2023 Dr. Macdonald PAST SURGICAL HISTORY OF multiplr vaginoplasty- RV fistual after FAVD & 4th degree REMOVAL GALLBLADDER 10/14/2023 Social History Tobacco Use Smoking status: Some Days Types: Cigarettes Smokeless tobacco: Never Tobacco comments: Stopped smoking cigarettes, just uses vape now Vaping Use Vaping status: current everyday user Start date: 05/12/2023 Substances: Nicotine, Flavoring Devices: Disposable Substance Use Topics Alcohol use: Yes Alcohol/week: 1.0 standard drink of alcohol Types: 1 Cans of beer per week Comment: monthly Drug use: No documented in this encounterMem[facility]24 Instructions* Patient Instructions* Darlin Ling APRN.CNP - 06/27/2024 2:47 PM EDT -schedule with Dr. Mccullough once labs are completed and surgery approved documented in this encounterMemorial [facility]-2024 NoteHNO ID: [id number] Author: DARLIN LING APRN.CNP Service: ? Author Type: Nurse Practitioner Type: Progress Notes Filed: 06/27/2024 16:32 Note Text: Plastic Surgery Note CC: excess skin of abdomen and thighs HPI: Leelee is a 28 year old female with excess skin of abdomen and thighs after weight loss. Patient was seen last year with Dr. Mccullough present for visit. She was recommended to keep weight stable for at least 6 months. Her weight has now been stable since visit last year. Bariatric surgery yes [] No [x] Type:.....n/a........... Date:......n/a...... Pounds lost:......100.......... Over which period:......10 months.......... Actual weight:......198........ How long weight was stable for:.....over 1 year...... Complaints:......excess skin of abdomen and thighs after weight loss, infections, trouble ADLs such wearing clothes and exercising, uses nystatin powder for over 1 year...... Nutritional status checked? yes [] No [x] Who:.....n/a........... Date:.....n/a........ Hemoglobin A1C (%) Date Value 06/23/2023 5.2 09/10/2022 5.1 12/16/2018 5.2 Last 10 Encounter BP Readings: Date: BP: 07/08/2023 130/66 07/05/2023 129/77 07/02/2023 120/64 06/23/2023 116/76 06/09/2023 118/78 05/15/2023 122/84 05/14/2023 132/92 04/18/2023 122/70 03/12/2023 120/78 03/10/2023 126/80 Latest Ref Rng AND Units 04/24/2022 08/05/2023 02/25/2024 CBC WBC 3.70 - 11.00 k/uL 7.49 7.05 7.70 RBC 3.90 - 5.20 m/uL 4.62 4.91 4.73 Hemoglobin 11.5 - 15.5 g/dL 11.6 14.1 14.2 Hematocrit 36.0 - 46.0 % 37.8 43.4 42.8 MCV 80.0 - 100.0 fL 81.8 88.4 90.5 MCH 26.0 - 34.0 pg 25.1 28.7 30.0 MCHC 30.5 - 36.0 g/dL 30.7 32.5 33.2 RDW-CV 11.5 - 15.0 % 13.9 13.0 12.2 Platelet Count 150 - 400 k/uL 331 291 283 MPV 9.0 - 12.7 fL 8.7 8.4 8.1 Baso% % 0.3 0.4 Abs Neut (ANC) 1.45 - 7.50 k/uL 5.00 4.33 Abs Lymph 1.00 - 4.00 k/uL 1.89 2.21 Abs Glacier <0.87 k/uL 0.47 0.42 Abs Eosin <0.46 k/uL 0.08 0.03 Abs Baso <0.11 k/uL <0.03 0.03 NRBC /100 WBC 0.0 0.0 Latest Ref Rng AND Units 09/10/2022 08/05/2023 02/25/2024 CMP Sodium 136 - 144 mmol/L 137 140 139 Potassium 3.7 - 5.1 mmol/L 4.3 4.4 4.6 Chloride 97 - 105 mmol/L 104 103 105 CO2 22 - 30 mmol/L 23 28 32 Glucose 74 - 99 mg/dL 91 84 79 BUN 7 - 21 mg/dL 8 8 10 Creatinine 0.58 - 0.96 mg/dL 0.62 0.53 0.68 EGFR >=60 mL/min/1.73m? 125 129 122 Protein, Total 6.3 - 8.0 g/dL 7.3 7.7 7.2 Albumin 3.9 - 4.9 g/dL 4.2 4.5 4.4 Calcium 8.5 - 10.2 mg/dL 9.7 9.7 9.5 Bilirubin, Total 0.2 - 1.3 mg/dL 0.9 1.5 1.4 AST 13 - 35 U/L 17 9 10 ALT 7 - 38 U/L 21 7 9 Alkaline Phosphatase 34 - 123 U/L 80 76 69 YES NO Smoking, vaping, nicotine, cannabis [] [x] Cigarettes/ day.... ? Diabetes [] [x] []Type 1? []Type 2 ?Last A1c:..... Systemic inflammatory diseases [x] [] []RA []Gout [x]Other.psoriasis.. Hypertension [] [x] Meds:....... Heart disease or pacemaker [] [x] ............ Family history blood clots [] [] Personal history blood clots [x] [] Blood clot to heart ? 10/2021 at [facility], DVT 02/2022 at [facility], both post op, had 4th degree tear and several surgeries after including ileostomy, ileostomy reversal, hernia surgery Anticoagulation (aspirin, coumadin, xarelto,etc) [] [x] What........... Reason:........... Immunosuppressants (steroid, biologic meds infusion, etc) [] [x] What........... Reason:........... Pt AGAINST blood transfusion? [] [x] Works at [employer]. Does take multiple vitamins. Objective: PAST MEDICAL HISTORY Diagnosis Date Acute deep vein thrombosis (DVT) of popliteal vein of right lower extremity (HCC) 02/2022 Allergic rhinitis, unspecified 12/16/2018 Bowel obstruction (HCC) 2022 Encounter for insertion of Mirena IUD 12/24/2021 Ex-smoker 12/16/2018 Started at age 19 up to 1/2-1 PPD, quit 05/2018 SAMAN (generalized anxiety disorder) 12/16/2018 [facility]. History of chlamydia 16 YO History of gastroesophageal reflux (GERD) 12/16/2018 History of morbid obesity PCOS (polycystic ovarian syndrome) Psoriasis 12/16/2018 Vitamin D deficiency 12/16/2018 PAST SURGICAL HISTORY Procedure Laterality Date CYST EXCISION 2016 right leg DANDC, DIAG AND/OR THERAPEUTIC 2020 EXTRACTION, ERUPTED TOOTH OR EXPOSED ROOT (ELEVATION AND/OR FORCEPS REMOVAL) 2012 LAPS SURG CHOLECYSTECTOMY W/CHOLANGIOGRAPHY 10/14/2023 Dr. Macdonald LOCAL REVISION OF ILESTOMY 02/24/2022 LYSIS OF ADHESIONS 10/14/2023 Dr. Macdonald PAST SURGICAL HISTORY OF multiplr vaginoplasty- RV fistual after FAVD AND 4th degree REMOVAL GALLBLADDER 10/14/2023 Current Outpatient Medications Medication Sig Dispense Refill amoxicillin-clavulanate potassium (AUGMENTIN) 875-125 mg per tablet Take 1 tablet by mouth two times a day for 7 days. 14 tablet 0 atomoxetine (STRATTERA) 10 mg capsule Take 1 capsule by mouth once daily. 30 capsule 0 dulaglutide (TRULICITY) 3 mg/0.5 mL pen injector INJEC (more content not included)...[facility]09-16-2024 History of Present illness Narrative* Darlin Ling APRN.HOME VISITOR [employer] - 06/27/2024 2:32 PM EDT Images from the original note were not included. Plastic Surgery Note CC: excess skin of abdomen and thighs HPI: Leelee is a 28 year old female with excess skin of abdomen and thighs after weight loss. Patient was seen last year with Dr. Mccullough present for visit. She was recommended to keep weight stablefor at least 6 months. Her weight has now been stable since visit last year. Bariatric surgery yes [] No [x] Type:.....n/a........... Date:......n/a...... Pounds lost:......100.......... Over which period:......10 months.......... Actual weight:......198........ How long weight was stable for:.....over 1 year...... Complaints:......excess skin of abdomen and thighs after weight loss, infections, trouble ADLs suchwearing clothes and exercising, uses nystatin powder for over 1 year...... Nutritional status checked? yes [] No [x] Who:.....n/a........... Date:.....n/a........ Hemoglobin A1C (%) Date Value 06/23/2023 5.2 09/10/2022 5.1 12/16/2018 5.2 Last 10 Encounter BP Readings: Date: BP: 07/08/2023 130/66 07/05/2023 129/77 07/02/2023 120/64 06/23/2023 116/76 06/09/2023 118/78 05/15/2023 122/84 05/14/2023 132/92 04/18/2023 122/70 03/12/2023 120/78 03/10/2023 126/80 Latest Ref Rng & Units 04/24/2022 08/05/2023 02/25/2024 CBC WBC 3.70 - 11.00 k/uL 7.49 7.05 7.70 RBC 3.90 - 5.20 m/uL 4.62 4.91 4.73 Hemoglobin 11.5 - 15.5 g/dL 11.6 14.1 14.2 Hematocrit 36.0 - 46.0 % 37.8 43.4 42.8 MCV 80.0 - 100.0 fL 81.8 88.4 90.5 MCH 26.0 - 34.0 pg 25.1 28.7 30.0 MCHC 30.5 - 36.0 g/dL 30.7 32.5 33.2 RDW-CV 11.5 - 15.0 % 13.9 13.0 12.2 Platelet Count 150 - 400 k/uL 331 291 283 MPV 9.0 - 12.7 fL 8.7 8.4 8.1 Baso% % 0.3 0.4 Abs Neut (ANC) 1.45 - 7.50 k/uL 5.00 4.33 Abs Lymph 1.00 - 4.00 k/uL 1.89 2.21 Abs Glacier <0.87 k/uL 0.47 0.42 Abs Eosin <0.46 k/uL 0.08 0.03 Abs Baso <0.11 k/uL <0.03 0.03 NRBC /100 WBC 0.0 0.0 Latest Ref Rng & Units 09/10/2022 08/05/2023 02/25/2024 CMP Sodium 136 - 144 mmol/L 137 140 139 Potassium 3.7 - 5.1 mmol/L 4.3 4.4 4.6 Chloride 97 - 105 mmol/L 104 103 105 CO2 22 - 30 mmol/L 23 28 32 Glucose 74 - 99 mg/dL 91 84 79 BUN 7 - 21 mg/dL 8 8 10 Creatinine 0.58 - 0.96 mg/dL 0.62 0.53 0.68 EGFR >=60 mL/min/1.73m 125 129 122 Protein, Total 6.3 - 8.0 g/dL 7.3 7.7 7.2 Albumin 3.9 - 4.9 g/dL 4.2 4.5 4.4 Calcium 8.5 - 10.2 mg/dL 9.7 9.7 9.5 Bilirubin, Total 0.2 - 1.3 mg/dL 0.9 1.5 1.4 AST 13 - 35 U/L 17 9 10 ALT 7 - 38 U/L 21 7 9 Alkaline Phosphatase 34 - 123 U/L 80 76 69 YES NO Smoking, vaping, nicotine, cannabis [] [x] Cigarettes/ day.... ? Diabetes [] [x] []Type 1? []Type 2 ?Last A1c:..... Systemic inflammatory diseases [x] [] []RA []Gout [x]Other.psoriasis.. Hypertension [] [x] Meds:....... Heart disease or pacemaker [] [x] ............ Family history blood clots [] [] Personal history blood clots [x] [] Blood clot to heart ? 10/2021 at [facility], DVT 02/2022 at [facility], both post op, had 4th degree tear and several surgeries after including ileostomy, ileostomy reversal, hernia surgery Anticoagulation (aspirin, coumadin, xarelto,etc) [] [x] What........... Reason:........... Immunosuppressants (steroid, biologic meds infusion, etc) [] [x] What........... Reason:........... Pt AGAINST blood transfusion? [] [x] Works at [employer]. Does take multiple vitamins. Objective: PAST MEDICAL HISTORY Diagnosis Date Acute deep vein thrombosis (DVT) of popliteal vein of right lower extremity (HCC) 02/2022 Allergic rhinitis, unspecified 12/16/2018 Bowel obstruction (HCC) 2022 Encounter for insertion of Mirena IUD 12/24/2021 Ex-smoker 12/16/2018 Started at age 19 up to 1/2-1 PPD, quit 05/2018 SAMAN (generalized anxiety disorder) 12/16/2018 [facility]aus [facility]. History of chlamydia 16 YO History of gastroesophageal reflux (GERD) 12/16/2018 History of morbid obesity PCOS (polycystic ovarian syndrome) Psoriasis 12/16/2018 Vitamin D deficiency 12/16/2018 PAST SURGICAL HISTORY Procedure Laterality Date CYST EXCISION 2016 right leg D&C, DIAG AND/OR THERAPEUTIC 2019 EXTRACTION, ERUPTED TOOTH OR EXPOSED ROOT (ELEVATION AND/OR FORCEPS REMOVAL) 2012 LAPS SURG CHOLECYSTECTOMY W/CHOLANGIOGRAPHY 10/14/2023 Dr. Macdonald LOCAL REVISION OF ILESTOMY 02/24/2022 LYSIS OF ADHESIONS 10/14/2023 Dr. Macdonald PAST SURGICAL HISTORY OF multiplr vaginoplasty- RV fistual after FAVD & 4th degree REMOVAL GALLBLADDER 10/14/2023 Current Outpatient Medications Medication Sig Dispense Refill amoxicillin-clavulanate potassium (AUGMENTIN) 875-125 mg per tablet Take 1 tablet by mouth two times a day for 7 days. 14 tablet 0 atomoxetine (STRATTERA) 10 mg capsule Take 1 capsule by mouth once daily. 30 capsule 0 dulaglutide (TRULICITY) 3 mg/0.5 mL pen injector INJECT 1 PEN SUBCUTANEOUSLY EVERY WEEK 2 mL 2 TRULICITY 1.5 mg/0.5 mL pen injector Inject 3 mg subcutaneously one time a week 4 mL 0 topiramate (TOPAMAX) 25 mg tablet Take 4 tablets by mouth once daily. 120 tablet 2 No current facility-administered medications for this visit. BP 114/67 Pulse 81 Temp 36.6 C (97.9 F) Ht 157.5 cm (5' 2) Wt 89.7 kg (197 lb 12.8 oz) LMP 05/27/2024 (Approximate) BMI 36.18 kg/m ALLERGIES Allergen Reactions Tree Nuts Rash Morphine Other: See Comments Tightness in chest ROS: All negative except for: GENERAL: []weight loss []malaise []fevers HEENT: []frequent or significant headaches []changes in hearing []change in vision []nose bleeds []other nasal problems NECK: []lumps []goiter []pain and significant neck swelling RESPIRATORY: []cough []hemoptysis []wheezing []COPD []dyspnea []shortness of breath CARDIOVASCULAR: []chest pain []leg swelling []hypertension []CHF []palpitations GI: []nausea []vomiting []diarrhea MUSCULOSKELETAL: see HPI SKIN: [] skin lesions []rash []itching PSYCH: []sleep disturbance []mood disorder []recent psychosocial stressors HEMATOLOGY/LYMPHOLOGY: []prolonged bleeding []bruising easily []swollen nodes ENDOCRINE: []cold intolerance []heat intolerance []polyuria []polydipsia []goiter PE: Alert, awake in NAD Excess skin and fat of upper and lower quadrants Lap scars present of abdomen Striae present A/P: Excess skin Photos today Follow up with Dr. Mccullough with labs completed at least 1 week prior Discussed that patient will need to see hematology prior to surgery to discuss prophylaxis Will submit for pre-auth I agree with the Chief Complaint, ROS, and Past Histories independently gathered by the clinical practice support specialist and the remaining scribed note accurately describes my personal service to the patient. 30 Minutes total visit spent face to face with patient. Greater than 50% of the time was spent for counseling and coordination of care, discussing treatment options and recommendations. Darlin Ling APRN.CNP June 27, 2024 documented in this encounterMemorial [facility]-14-[facility]24 Instructions* Patient Instructions* Jared Florentino APRN.CNP - 06/25/2024 10:18 AM EDT ASSESSMENT/PLAN: 1. Acute effusion of right ear - ICD9: 381.00, ICD10: H65.191 - Will begin treatment with Augmentin 875 mg PO BID for 7 days - Supportive care with plenty of fluids, rest, and analgesia prn. - Flonase nasal spray over the counter for nasal inflammation Discussed plan of care with patient. Prescribed antibiotic with instructions on use. Answered all of patient's questions. Patient is agreeable with plan and verbalizes understanding. 2. Bacterial sinusitis - ICD9: 473.9, 041.9, ICD10: J32.9, B96.89 - Will begin treatment with as per antibiotic as written, see orders - AMOXICILLIN 875 MG-POTASSIUM CLAVULANATE 125 MG TABLET Delia Louis, Student SKID MACHINE OPERATOR documented in this encounterMemorial Health [facility]09-[facility]-2024 NoteHNO ID: [id number] Author: JARED FLORENTINO APRN.HOME VISITOR [employer] Service: ? Author Type: Nurse Practitioner Type: Progress Notes Filed: 06/25/2024 10:25 Note Text: Subjective Leelee Zamora is a 29 year old female who presents with right ear pain x 3 days, drainage in the throat and nasal congestion. Ear Problem Associated symptoms include ear discharge. Pertinent negatives include no abdominal pain, coughing, diarrhea, sore throat or vomiting. Patient states she has right ear pain that started three days ago and reports some post nasal drainage with nasal congestion and sinus pressure x 1 week. She has noticed some yellowish-green drainage from her right ear. She reports no recent sick exposures. She denies fever, cough, nausea, vomiting, and diarrhea and abdominal pain. Review of Systems Constitutional: Negative for fever and malaise/fatigue. HENT: Positive for congestion, ear discharge and ear pain. Negative for sinus pain and sore throat. Eyes: Negative. Respiratory: Negative for cough. Cardiovascular: Negative. Gastrointestinal: Negative for abdominal pain, diarrhea, nausea and vomiting. Musculoskeletal: Negative. Skin: Negative. Neurological: Negative. Psychiatric/Behavioral: Negative. PAST MEDICAL HISTORY Diagnosis Date Acute deep vein thrombosis (DVT) of popliteal vein of right lower extremity (HCC) 02/2022 Allergic rhinitis, unspecified 12/16/2018 Bowel obstruction (HCC) 2022 Encounter for insertion of Mirena IUD 12/24/2021 Ex-smoker 12/16/2018 Started at age 19 up to 1/2-1 PPD, quit 05/2018 SAMAN (generalized anxiety disorder) 12/16/2018 [facility]. History of chlamydia 16 YO History of gastroesophageal reflux (GERD) 12/16/2018 History of morbid obesity PCOS (polycystic ovarian syndrome) Psoriasis 12/16/2018 Vitamin D deficiency 12/16/2018 PAST SURGICAL HISTORY Procedure Laterality Date CYST EXCISION 2017 right leg DANDC, DIAG AND/OR THERAPEUTIC 2019 EXTRACTION, ERUPTED TOOTH OR EXPOSED ROOT (ELEVATION AND/OR FORCEPS REMOVAL) 2012 LAPS SURG CHOLECYSTECTOMY W/CHOLANGIOGRAPHY 10/14/2023 Dr. Macdonald LOCAL REVISION OF ILESTOMY 02/24/2022 LYSIS OF ADHESIONS 10/14/2023 Dr. Macdonald PAST SURGICAL HISTORY OF multiplr vaginoplasty- RV fistual after FAVD AND 4th degree REMOVAL GALLBLADDER 10/14/2023 ALLERGIES Tree Nuts and Morphine MEDICATIONS atomoxetine (STRATTERA) 10 mg capsule Take 1 capsule by mouth once daily. dulaglutide (TRULICITY) 3 mg/0.5 mL pen injector INJECT 1 PEN SUBCUTANEOUSLY EVERY WEEK TRULICITY 1.5 mg/0.5 mL pen injector Inject 3 mg subcutaneously one time a week amoxicillin-clavulanate potassium (AUGMENTIN) 875-125 mg per tablet Take 1 tablet by mouth two times a day for 7 days. topiramate (TOPAMAX) 25 mg tablet Take 4 tablets by mouth once daily. FAMILY HISTORY Problem Relation Age of Onset Heart disease Mother arythmia Diabetes Father Hypertension Father Thyroid Cancer Paternal Aunt 52 Cervical Cancer Paternal Aunt Uterine Cancer Paternal Aunt Breast Cancer Paternal Aunt 20 - 29 Ovarian cancer Paternal Aunt 20 - 29 Thyroid Cancer Paternal Aunt 19 resolved Breast Cancer Paternal Aunt 20 - 29 Kidney Disease Maternal Grandmother other (lupus) Maternal Grandmother Stroke Maternal Grandmother Heart Attack Maternal Grandmother Blood Clots Maternal Grandmother Colon Cancer Paternal Grandmother late 50's Coronary Artery Disease Paternal Grandmother 40's Diabetes Paternal Grandmother Hypertension Paternal Grandmother Diabetes Paternal Grandfather Hypertension Paternal Grandfather Alzheimer's Disease No Family History Hyperlipidemia No Family History Thyroid No Family History Seizures No Family History Social History Tobacco Use Smoking status: Some Days Types: Cigarettes Smokeless tobacco: Never Tobacco comments: Stopped smoking cigarettes, just uses vape now Vaping Use Vaping status: current everyday user Start date: 05/12/2023 Substances: Nicotine, Flavoring Devices: Disposable Substance Use Topics Alcohol use: Yes Alcohol/week: 1.0 standard drink of alcohol Types: 1 Cans of beer per week Comment: monthly Drug use: No BP 128/84 Pulse 79 Temp 36.3 ?C (97.3 ?F) (Left Tympanic) Resp 16 Wt 92.1 kg (203 lb 0.7 oz) LMP 05/27/2024 (Approximate) SpO2 99% BMI 37.13 kg/m? Objective Physical Exam Vitals and nursing note reviewed. Constitutional: Appearance: Normal appearance. HENT: Head: Normocephalic. Right Ear: Hearing, ear canal and external ear normal. A middle ear effusion is present. Tympanic membrane is bulging. Left Ear: Tympanic membrane normal. Nose: Nasal tenderness, mucosal edema and congestion present. No rhinorrhea. Right Turbinates: Swollen. Left Turbinates: Swollen. Mouth/Throat: Pharynx: Posterior oropharyngeal erythema present. Cardiovascular: Rate and Rhythm: Normal rate and re (more content not included)...[facility]09-14-2024 History of Present illness Narrative* Jared Florentino, ASAEL.HOME VISITOR [employer] - 06/25/2024 10:00 AM EDT Subjective Leelee Zamora is a 29 year old female who presents with right ear pain x 3 days, drainage in the throat and nasal congestion. Ear Problem Associated symptoms include ear discharge. Pertinent negatives include no abdominal pain, coughing,diarrhea, sore throat or vomiting. Patient states she has right ear pain that started three days ago and reports some post nasal drainage with nasal congestion and sinus pressure x 1 week. She has noticed some yellowish-green drainagefrom her right ear. She reports no recent sick exposures. She denies fever, cough, nausea, vomiting, and diarrhea and abdominal pain. Review of Systems Constitutional: Negative for fever and malaise/fatigue. HENT: Positive for congestion, ear discharge and ear pain. Negative for sinus pain and sore throat. Eyes: Negative. Respiratory: Negative for cough. Cardiovascular: Negative. Gastrointestinal: Negative for abdominal pain, diarrhea, nausea and vomiting. Musculoskeletal: Negative. Skin: Negative. Neurological: Negative. Psychiatric/Behavioral: Negative. PAST MEDICAL HISTORY Diagnosis Date Acute deep vein thrombosis (DVT) of popliteal vein of right lower extremity (HCC) 02/2022 Allergic rhinitis, unspecified 12/16/2018 Bowel obstruction (HCC) 2022 Encounter for insertion of Mirena IUD 12/24/2021 Ex-smoker 12/16/2018 Started at age 19 up to 1/2-1 PPD, quit 05/2018 SAMAN (generalized anxiety disorder) 12/16/2018 [facility]. History of chlamydia 16 YO History of gastroesophageal reflux (GERD) 12/16/2018 History of morbid obesity PCOS (polycystic ovarian syndrome) Psoriasis 12/16/2018 Vitamin D deficiency 12/16/2018 PAST SURGICAL HISTORY Procedure Laterality Date CYST EXCISION 2016 right leg D&C, DIAG AND/OR THERAPEUTIC 2019 EXTRACTION, ERUPTED TOOTH OR EXPOSED ROOT (ELEVATION AND/OR FORCEPS REMOVAL) 2012 LAPS SURG CHOLECYSTECTOMY W/CHOLANGIOGRAPHY 10/14/2023 Dr. Macdonald LOCAL REVISION OF ILESTOMY 02/24/2022 LYSIS OF ADHESIONS 10/14/2023 Dr. Macdonald PAST SURGICAL HISTORY OF multiplr vaginoplasty- RV fistual after FAVD & 4th degree REMOVAL GALLBLADDER 10/14/2023 ALLERGIES Tree Nuts and Morphine MEDICATIONS atomoxetine (STRATTERA) 10 mg capsule Take 1 capsule by mouth once daily. dulaglutide (TRULICITY) 3 mg/0.5 mL pen injector INJECT 1 PEN SUBCUTANEOUSLY EVERY WEEK TRULICITY 1.5 mg/0.5 mL pen injector Inject 3 mg subcutaneously one time a week amoxicillin-clavulanate potassium (AUGMENTIN) 875-125 mg per tablet Take 1 tablet by mouth two times a day for 7 days. topiramate (TOPAMAX) 25 mg tablet Take 4 tablets by mouth once daily. FAMILY HISTORY Problem Relation Age of Onset Heart disease Mother arythmia Diabetes Father Hypertension Father Thyroid Cancer Paternal Aunt 52 Cervical Cancer Paternal Aunt Uterine Cancer Paternal Aunt Breast Cancer Paternal Aunt 20 - 29 Ovarian cancer Paternal Aunt 20 - 29 Thyroid Cancer Paternal Aunt 19 resolved Breast Cancer Paternal Aunt 20 - 29 Kidney Disease Maternal Grandmother other (lupus) Maternal Grandmother Stroke Maternal Grandmother Heart Attack Maternal Grandmother Blood Clots Maternal Grandmother Colon Cancer Paternal Grandmother late 50's Coronary Artery Disease Paternal Grandmother 40's Diabetes Paternal Grandmother Hypertension Paternal Grandmother Diabetes Paternal Grandfather Hypertension Paternal Grandfather Alzheimer's Disease No Family History Hyperlipidemia No Family History Thyroid No Family History Seizures No Family History Social History Tobacco Use Smoking status: Some Days Types: Cigarettes Smokeless tobacco: Never Tobacco comments: Stopped smoking cigarettes, just uses vape now Vaping Use Vaping status: current everyday user Start date: 05/12/2023 Substances: Nicotine, Flavoring Devices: Disposable Substance Use Topics Alcohol use: Yes Alcohol/week: 1.0 standard drink of alcohol Types: 1 Cans of beer per week Comment: monthly Drug use: No BP 128/84 Pulse 79 Temp 36.3 C (97.3 F) (Left Tympanic) Resp 16 Wt 92.1 kg (203 lb 0.7 oz) LMP 05/27/2024 (Approximate) SpO2 99% BMI 37.13 kg/m Objective Physical Exam Vitals and nursing note reviewed. Constitutional: Appearance: Normal appearance. HENT: Head: Normocephalic. Right Ear: Hearing, ear canal and external ear normal. A middle ear effusion is present. Tympanic membrane is bulging. Left Ear: Tympanic membrane normal. Nose: Nasal tenderness, mucosal edema and congestion present. No rhinorrhea. Right Turbinates: Swollen. Left Turbinates: Swollen. Mouth/Throat: Pharynx: Posterior oropharyngeal erythema present. Cardiovascular: Rate and Rhythm: Normal rate and regular rhythm. Pulses: Normal pulses. Heart sounds: Normal heart sounds. Pulmonary: Effort: Pulmonary effort is normal. Breath sounds: Normal breath sounds. Abdominal: Palpations: Abdomen is soft. Tenderness: There is no abdominal tenderness. Musculoskeletal: General: Normal range of motion. Cervical back: Neck supple. No tenderness. Skin: General: Skin is warm and dry. Neurological: General: No focal deficit present. Mental Status: She is alert and oriented to person, place, and time. Psychiatric: Mood and Affect: Mood normal. Behavior: Behavior normal. ASSESSMENT/PLAN: 1. Acute effusion of right ear - ICD9: 381.00, ICD10: H65.191 - Will begin treatment with Augmentin 875 mg PO BID for 7 days - Supportive care with plenty of fluids, rest, and analgesia prn. - Flonase nasal spray over the counter for nasal inflammation Discussed plan of care with patient. Prescribed antibiotic with instructions on use. Answered all of patient's questions. Patient is agreeable with plan and verbalizes understanding. 2. Bacterial sinusitis - ICD9: 473.9, 041.9, ICD10: J32.9, B96.89 - Will begin treatment with as per antibiotic as written, see orders - AMOXICILLIN 875 MG-POTASSIUM CLAVULANATE 125 MG TABLET Delia Louis, Student SKID MACHINE OPERATOR TEACHING PROVIDER (Physician/PA/MOBILITY ENGINEER) NOTE OF PERSONAL INVOLVEMENT IN CARE: I have personally seen and examined the patient and performed the medical decision-making components. I have reviewed the Advanced Practice Registered Nurse (MOBILITY ENGINEER) Student's documentation and verified the findings in the note as written. Any additions or changes are noted in bold/italics. Signature: Jared Florentino Date: 06/25/2024 Time: 10:21 AM [facility] Telephone encounter Note * Telephone Encounter - Janette Donovan LPN - 06/08/2024 3:45 PM EDT Pt was seen in the office 06/06/24. See office note for med change. [facility]08-[facility] Miscellaneous Notes* Telephone Encounter - Janette Donovan LPN - 06/08/2024 3:45 PM EDT Pt was seen in the office 06/06/24. See office note for med change. * Telephone Encounter - Jazmin Thompson MA - 05/11/2024 9:15 AM EDT Denied: Coverage is provided when the member has met the step therapy requirement for this medication. Steptherapy is a type of prior authorization that requires that you try one or more preferred drugs before you are approved for the drug requested. Coverage is provided when the member has a history of at least 30 days with atomoxetine OR at least two preferred medications for the treatment of ADHD which include but are not limited to: Amphetamine/Dextroamphetamine ER , Dexmethylphenidate ER (genericof Focalin XR), Dextroamphetamine ER capsule, Methylphenidate ER Capsule (generic of Metadate CD, Ritalin LA), Methylphenidate ER Tablet (generic of Concerta, Methylin ER, Ritalin SR), and QuillichewER. [facility] Policy for Medical Necessity as posted on the [place] SPBM website and [facility] Preferred Drug List criteria were reviewed and per [place] Administrative Code Rule 5160-1-01 (C) and (B), a medically necessary service must include: generally accepted standards of medical practice, be clinically appropriate in administration, treatment and outcome and be the lowest cost alternative to effectively treat the condition. Please contact your provider to assist you with other treatment options that might be covered under your benefit package, or other services that might be available through the community. Payer: [facility] Jazmin Thompson MA * Telephone Encounter - Janette Donovan LPN - 05/10/2024 3:22 PM EDT ELECTRONIC pa REC'D AND COMPLETED FOR VILOXAINE(QELBREE) documented in this encounterMem[facility] History of Present illness Narrative* Cooper Gastelum APRN.HOME VISITOR [employer] - 06/06/2024 3:59 PM EDT Chief Complaint Patient presents with: Follow Up HPI Leelee Zamora is a 29 year old female who presents here today for Above Complaints.. Patient presents for ADHD follow up. Patient on phentermine for weight loss and Qelbree ordered however insurance denied. Prefer Strattera or failure of 2 stimulants prior to Qelbree. Past medical history, appointments, medications, allergies reviewed. Previous Medical History PAST MEDICAL HISTORY 02/2022: Acute deep vein thrombosis (DVT) of popliteal vein of right lower extremity (HCC) 12/16/2018: Allergic rhinitis, unspecified 2022: Bowel obstruction (HCC) 12/24/2021: Encounter for insertion of Mirena IUD 12/16/2018: Ex-smoker Comment: Started at age 19 up to 1/2-1 PPD, quit 05/201812/16/2018: SAMAN (generalized anxiety disorder) Comment: [facility]. No date: History of chlamydia Comment: 16 YO 12/16/2018: History of gastroesophageal reflux (GERD) No date: History of morbid obesity No date: PCOS (polycystic ovarian syndrome) 12/16/2018: Psoriasis 12/16/2018: Vitamin D deficiency Previous Surgical History PAST SURGICAL HISTORY 2017: CYST EXCISION Comment: right leg 2020: D&C, DIAG AND/OR THERAPEUTIC 2013: EXTRACTION, ERUPTED TOOTH OR EXPOSED ROOT (ELEVATION AND/OR FORCEPS REMOVAL) 10/14/2023: LAPS SURG CHOLECYSTECTOMY W/CHOLANGIOGRAPHY Comment: Dr. Macdonald 02/24/2022: LOCAL REVISION OF ILESTOMY 10/14/2023: LYSIS OF ADHESIONS Comment: Dr. Macdonald No date: PAST SURGICAL HISTORY OF Comment: multiplr vaginoplasty- RV fistual after FAVD & 4th degree 10/14/2023: REMOVAL GALLBLADDER Family History FAMILY HISTORY Problem Relation Age of Onset Heart disease Mother arythmia Diabetes Father Hypertension Father Thyroid Cancer Paternal Aunt 52 Cervical Cancer Paternal Aunt Uterine Cancer Paternal Aunt Breast Cancer Paternal Aunt 20 - 29 Ovarian cancer Paternal Aunt 20 - 29 Thyroid Cancer Paternal Aunt 19 resolved Breast Cancer Paternal Aunt 20 - 29 Kidney Disease Maternal Grandmother other (lupus) Maternal Grandmother Stroke Maternal Grandmother Heart Attack Maternal Grandmother Blood Clots Maternal Grandmother Colon Cancer Paternal Grandmother late 50's Coronary Artery Disease Paternal Grandmother 40's Diabetes Paternal Grandmother Hypertension Paternal Grandmother Diabetes Paternal Grandfather Hypertension Paternal Grandfather Alzheimer's Disease No Family History Hyperlipidemia No Family History Thyroid No Family History Seizures No Family History Patient Allergies ALLERGIES Allergen Reactions Tree Nuts Rash Morphine Other: See Comments Tightness in chest Current Medications Current Outpatient Medications on File Prior to Visit Medication Sig dulaglutide (TRULICITY) 3 mg/0.5 mL pen injector INJECT 1 PEN SUBCUTANEOUSLY EVERY WEEK viloxazine (QELBREE) 200 mg capsule, extended release Take 1 capsule (200 mg) by mouth once daily. TRULICITY 1.5 mg/0.5 mL pen injector Inject 3 mg subcutaneously one time a week topiramate (TOPAMAX) 25 mg tablet Take 4 tablets by mouth once daily. No current facility-administered medications on file prior to visit. Social History Social History Tobacco Use Smoking status: Some Days Types: Cigarettes Smokeless tobacco: Never Tobacco comments: Stopped smoking cigarettes, just uses vape now Vaping Use Vaping status: current everyday user Start date: 05/12/2023 Substances: Nicotine, Flavoring Devices: Disposable Substance Use Topics Alcohol use: Yes Alcohol/week: 1.0 standard drink of alcohol Types: 1 Cans of beer per week Comment: monthly Drug use: No Review of Symptoms REVIEW OF SYSTEMS SEE HPI EXAM: BP 101/68 Pulse 79 Resp 14 Wt 91.2 kg (201 lb) LMP 11/19/2023 (Approximate) BMI 36.75 kg/m General Appearance: Well appearing, alert, in no acute distress, well-hydrated, well nourished.. Lungs: Lungs clear to auscultation. No wheezing, rhonchi, rales.. Heart: RRR without murmur, gallop, or rubs. No ectopy. Health Maintenance List Pneumococcal Vaccine(1 of 2 - PCV) Never done Depression Screening Never done Hepatitis B Vaccine(1 of 3 - 19+ 3-dose series) Never done Covid-19 Vaccine( - 2022- season) Never done Influenza Vaccine(1) due on 06/12/2024 Cervical Cancer Screening due on 03/12/2026 DTaP,Tdap,Td Vaccine(4 - Td or Tdap) due on 04/27/2031 Hepatitis C Screening Completed HIV Screening Completed HPV Vaccine Aged Out ASSESSMENT/PLAN: 1. ADHD (attention deficit hyperactivity disorder), predominantly hyperactive impulsive type - ICD9: 314.01, ICD10: F90.1 - ATOMOXETINE 10 MG CAPSULE Cooper Gastelum APRN.HOME VISITOR HOME [employer] START documented in this encounterMem[facility] Telephone encounter Note * Telephone Encounter - Zita Robins LPN - 05/13/2024 8:01 AM EDT Patient given results and verbalized understanding of instructions given. Zita Robins LPN [facility]08-02-2024 Miscellaneous Notes* Telephone Encounter - Zita Robins LPN - 05/13/2024 8:01 AM EDT Patient given results and verbalized understanding of instructions given. Zita Robins LPN * Telephone Encounter - Alecia Dumont APRN.HOME VISITOR [employer] - 05/13/2024 7:53 AM EDT Please call patient and let her know that her urine culture came back positive with bacteria that needs treated with Macrobid twice a day for 5 days. Patient should take this with her Flagyl. If patient has symptoms after treatment she needs to follow-up with primary care documented in this encounterMem[facility] Telephone encounter Note * Telephone Encounter - Alecia Dumont APRN.HOME VISITOR [employer] - 05/13/2024 7:53 AM EDT Please call patient and let her know that her urine culture came back positive with bacteria that needs treated with Macrobid twice a day for 5 days. Patient should take this with her Flagyl. If patient has symptoms after treatment she needs to follow-up with primary care [facility]08-[facility]24 Telephone encounter Note* Telephone Encounter - Sandra Leung MA - 05/12/2024 8:41 AM EDT Patient notified of results, verbalized understanding of instructions given. Sandra Leung MA [facility]08-01-2024 Miscellaneous Notes* Telephone Encounter - Sandra Leung MA - 05/12/2024 8:41 AM EDT Patient notified of results, verbalized understanding of instructions given. Sandra Leung MA * Telephone Encounter - Michael Rosado APRN.HOME VISITOR [employer] - 05/12/2024 8:27 AM EDT Please notify positive for BV. This is an overgrowth of normal bacteria, not an STD. I will send treatment to your pharmacy. Do not drink alcohol while on this treatment. F/u with pcp or pulmonology technician for continued s/s documented in this encounterMem[facility] Telephone encounter Note * Telephone Encounter - Michael Rosado APRN.YADI - 05/12/2024 8:27 AM EDT Please notify positive for BV. This is an overgrowth of normal bacteria, not an STD. I will send treatment to your pharmacy. Do not drink alcohol while on this treatment. F/u with pcp or pulmonology technician for continued s/s [facility]07-31-[facility] History of Present illness Narrative* Sandhya Aguilar APRN.HOME VISITOR [employer] - 05/11/2024 9:41 AM EDT This note was created using Econodatariter. Subjective Leelee Zamora is a 29 year old female. 29 year old female with PMH migraine and PCOS presents for female complaints. Acute onset 2 days ago +suprapubic pressure +vaginal discharge +milky white color +odor Denies fever or chills Denies abdominal pain Denies flank pain. Denies skin rash or lesions. Denies sx Denies vaginal bleeding LMP- just ended Of note, she states she would like to be tested for STI, citing she does not trust her boyfriend who has been out The history is provided by the patient. No language instructor was used. Female Gu Problem This is a new problem. The current episode started 2 days ago. The onset was sudden. The problem occurs continuously. The problem has been gradually worsening. The pain is mild. Nothing relieves the symptoms. Nothing aggravates the symptoms. Associated symptoms include vaginal discharge. Pertinent negatives include no chest pain, no anorexia, no chills, no fever, no abdominal pain, no constipation, no diarrhea, no nausea, no vomiting, no dysuria, no frequency, no hematuria, no pelvic pain, no urgency, no vaginal bleeding, no vaginal pain, no headaches, no sore throat, no back pain, no cough, no shortness of breath, no rash and no dyspareunia. There has been no history of trauma. Urine output has been normal. The last void occurred Less than 6 hours ago. She is currently Sexually active. She has 1 sexual partner. She is not . Her past medical history is significant for UTI. Therewere no sick contacts. She has received no recent medical care. PAST MEDICAL HISTORY 02/2022: Acute deep vein thrombosis (DVT) of popliteal vein of right lower extremity ([facility]) 12/16/2018: Allergic rhinitis, unspecified 2022: Bowel obstruction ([facility]) 12/24/2021: Encounter for insertion of Mirena IUD 12/16/2018: Ex-smoker Comment: Started at age 19 up to 1/2-1 PPD, quit 05/201812/16/2018: SAMAN (generalized anxiety disorder) Comment: [facility]. No date: History of chlamydia Comment: 16 YO 12/16/2018: History of gastroesophageal reflux (GERD) No date: History of morbid obesity No date: PCOS (polycystic ovarian syndrome) 12/16/2018: Psoriasis 12/16/2018: Vitamin D deficiency PAST SURGICAL HISTORY 2017: CYST EXCISION Comment: right leg 2020: D&C, DIAG AND/OR THERAPEUTIC 2013: EXTRACTION, ERUPTED TOOTH OR EXPOSED ROOT (ELEVATION AND/OR FORCEPS REMOVAL) 10/14/2023: LAPS SURG CHOLECYSTECTOMY W/CHOLANGIOGRAPHY Comment: Dr. Macdonald 02/24/2022: LOCAL REVISION OF ILESTOMY 10/14/2023: LYSIS OF ADHESIONS Comment: Dr. Macdonald No date: PAST SURGICAL HISTORY OF Comment: multiplr vaginoplasty- RV fistual after FAVD & 4th degree 10/14/2023: REMOVAL GALLBLADDER ALLERGIES Tree Nuts and Morphine MEDICATIONS dulaglutide (TRULICITY) 3 mg/0.5 mL pen injector INJECT 1 PEN SUBCUTANEOUSLY EVERY WEEK viloxazine (QELBREE) 200 mg capsule, extended release Take 1 capsule (200 mg) by mouth once daily. TRULICITY 1.5 mg/0.5 mL pen injector Inject 3 mg subcutaneously one time a week Phentermine HCl 37.5 mg tablet Take 1 tablet by mouth once daily for 90 days. topiramate (TOPAMAX) 25 mg tablet Take 4 tablets by mouth once daily. FAMILY HISTORY Problem Relation Age of Onset Heart disease Mother arythmia Diabetes Father Hypertension Father Thyroid Cancer Paternal Aunt 52 Cervical Cancer Paternal Aunt Uterine Cancer Paternal Aunt Breast Cancer Paternal Aunt 20 - 29 Ovarian cancer Paternal Aunt 20 - 29 Thyroid Cancer Paternal Aunt 19 resolved Breast Cancer Paternal Aunt 20 - 29 Kidney Disease Maternal Grandmother other (lupus) Maternal Grandmother Stroke Maternal Grandmother Heart Attack Maternal Grandmother Blood Clots Maternal Grandmother Colon Cancer Paternal Grandmother late 50's Coronary Artery Disease Paternal Grandmother 40's Diabetes Paternal Grandmother Hypertension Paternal Grandmother Diabetes Paternal Grandfather Hypertension Paternal Grandfather Alzheimer's Disease No Family History Hyperlipidemia No Family History Thyroid No Family History Seizures No Family History Social History Tobacco Use Smoking status: Some Days Years: 4 Types: Cigarettes Smokeless tobacco: Never Tobacco comments: Stopped smoking cigarettes, just uses vape now Vaping Use Vaping Use: current everyday user Start date: 05/12/2023 Substances: Nicotine, Flavoring Devices: Disposable Substance Use Topics Alcohol use: Yes Alcohol/week: 1.0 standard drink of alcohol Types: 1 Cans of beer per week Comment: monthly Drug use: No Review of Systems Constitutional: Negative for chills and fever. HENT: Negative for sore throat. Respiratory: Negative for cough and shortness of breath. Cardiovascular: Negative for chest pain. Gastrointestinal: Negative for abdominal pain, anorexia, constipation, diarrhea, nausea and vomiting. Genitourinary: Positive for vaginal discharge. Negative for dyspareunia, dysuria, frequency, hematuria, pelvic pain, urgency, vaginal bleeding and vaginal pain. Musculoskeletal: Negative for back pain. Skin: Negative for rash. Neurological: Negative for headaches. Objective BP 120/80 Pulse 80 Temp 36.3 C (97.4 F) Resp 19 Wt 92.4 kg (203 lb 11.3 oz) LMP 11/19/2023 (Approximate) SpO2 99% BMI 37.25 kg/m Physical Exam Vitals and nursing note reviewed. Constitutional: General: She is not in acute distress. Appearance: Normal appearance. She is normal weight. She is not ill-appearing, toxic-appearing or diaphoretic. HENT: Head: Normocephalic and atraumatic. Right Ear: Ear canal and external ear normal. Left Ear: Ear canal and external ear normal. Nose: Nose normal. No congestion or rhinorrhea. Mouth/Throat: Mouth: Mucous membranes are moist. Pharynx: No oropharyngeal exudate or posterior oropharyngeal erythema. Eyes: General: Right eye: No discharge. Left eye: No discharge. Extraocular Movements: Extraocular movements intact. Conjunctiva/sclera: Conjunctivae normal. Pupils: Pupils are equal, round, and reactive to light. Cardiovascular: Rate and Rhythm: Normal rate and regular rhythm. Pulses: Normal pulses. Heart sounds: Normal heart sounds. No murmur heard. No friction rub. Pulmonary: Effort: Pulmonary effort is normal. No respiratory distress. Breath sounds: Normal breath sounds. No stridor. No wheezing, rhonchi or rales. Chest: Chest wall: No tenderness. Abdominal: General: Abdomen is flat. There is no distension. Palpations: Abdomen is soft. There is no mass. Tenderness: There is no abdominal tenderness. There is no right CVA tenderness, left CVA tenderness, guarding or rebound. Hernia: No hernia is present. Genitourinary: Comments: Pelvic exam deferred by patient choice. Self swabs obtained Musculoskeletal: General: No swelling, tenderness, deformity or signs of injury. Normal range of motion. Cervical back: Normal range of motion and neck supple. No rigidity. Right lower leg: No edema. Left lower leg: No edema. Lymphadenopathy: Cervical: No cervical adenopathy. Skin: General: Skin is warm and dry. Coloration: Skin is not jaundiced or pale. Findings: No bruising, erythema, lesion or rash. Neurological: General: No focal deficit present. Mental Status: She is alert and oriented to person, place, and time. Cranial Nerves: No cranial nerve deficit. Sensory: No sensory deficit. Motor: No weakness. Coordination: Coordination normal. Gait: Gait normal. Psychiatric: Mood and Affect: Mood normal. Behavior: Behavior normal. Thought Content: Thought content normal. Judgment: Judgment normal. Assessment and Plan ASSESSMENT/PLAN: 1. Suprapubic pressure - ICD9: 789.09, ICD10: R10.2 (primary diagnosis) Differential Diagnosis includes Kidney stones/colic, Appendicitis, Ovarian cyst, Cystitis, and PID - Labs of Urine analysis and urine culture Along with STI testing swabs Urine dip +leuks, +uro, +pro, +ket, +herman Will send urine culture - Follow up in 2 days or sooner if worsening of symptoms - UA DIP, URINE (POC) - URINE CULTURE 2. Vaginal discharge - ICD9: 623.5, ICD10: N89.8 X 2 DAYS Defers pelvic exam, Self swab Requesting STI testing - GONORRHEA/CHLAMYDIA NAAT - BACTERIAL VAGINOSIS NAAT - JOJO/TRICHOMONAS NAAT Sandhya Aguilar APRN.YADI documented in [facility] encounter[facility] Telephone encounter Note * Telephone Encounter - Jazmin Thompson MA - 05/11/2024 9:15 AM EDT Denied: Coverage is provided when the member has met the step therapy requirement for this medication. Steptherapy is a type of prior authorization that requires that you try one or more preferred drugs before you are approved for the drug requested. Coverage is provided when the member has a history of at least 30 days with atomoxetine OR at least two preferred medications for the treatment of ADHD which include but are not limited to: Amphetamine/Dextroamphetamine ER , Dexmethylphenidate ER (genericof Focalin XR), Dextroamphetamine ER capsule, Methylphenidate ER Capsule (generic of Metadate CD, Ritalin LA), Methylphenidate ER Tablet (generic of Concerta, Methylin ER, Ritalin SR), and QuillichewER. [facility] Policy for Medical Necessity as posted on the [facility] website and [facility] Preferred Drug List criteria were reviewed and per [place] Administrative Code Rule 5160-1-01 (C) and (B), a medically necessary service must include: generally accepted standards of medical practice, be clinically appropriate in administration, treatment and outcome and be the lowest cost alternative to effectively treat the condition. Please contact your provider to assist you with other treatment options that might be covered under your benefit package, or other services that might be available through the community. Payer: [facility] Jazmin Thompson MA [facility]07-30-[facility] Telephone encounter Note* Telephone Encounter - Janette Donovan LPN - 05/10/2024 3:22 PM EDT ELECTRONIC pa REC'D AND COMPLETED FOR VILOXAINE(QELBREE) [facility]07-30-[facility] History of Present illness Narrative* Cooper Gastelum APRN.HOME VISITOR [employer] - 05/10/2024 2:42 PM EDT VIRTUAL VISIT PROGRESS NOTE This is a virtual visit using [employer] Video Visit. It required patient- provider interaction for the medical decision making as documented below. I have communicated my name and active licensure. The patient's identity and physical location wereverified at the time of this visit. Either the patient or their legal insurance sales representative has been informed of the risks and benefits of -- and alternatives to -- treatment through a remote evaluation andconsents to proceed with the evaluation remotely. Leelee Zamora is a 29 year old female seen for discussion regarding ADHD diagnosis. Patient reports she is an over sharer and has been called weird. She has been this way her whole life and was on ADHD medications as a kid. Patient reports her mom let her decide to stop medications at age 12 and she has not been on anything since then. Patient is currently on phentermine for obesity management. Has tried Wellbutrin in the past which made depression symptoms worsen. HISTORY REVIEWED (electronic chart updated): PAST MEDICAL HISTORY Diagnosis Date Acute deep vein thrombosis (DVT) of popliteal vein of right lower extremity (HCC) 02/2022 Allergic rhinitis, unspecified 12/16/2018 Bowel obstruction (HCC) 2022 Encounter for insertion of mirena IUD 12/24/2021 Ex-smoker 12/16/2018 Started at age 19 up to 1/2-1 PPD, quit 05/2018 SAMAN (generalized anxiety disorder) 12/16/2018 [facility]. History of chlamydia 16 YO History of gastroesophageal reflux (GERD) 12/16/2018 History of morbid obesity PCOS (polycystic ovarian syndrome) Psoriasis 12/16/2018 Vitamin D deficiency 12/16/2018 PAST SURGICAL HISTORY Procedure Laterality Date CYST EXCISION 2016 right leg D&C, DIAG AND/OR THERAPEUTIC 2019 EXTRACTION, ERUPTED TOOTH OR EXPOSED ROOT (ELEVATION AND/OR FORCEPS REMOVAL) 2012 LAPS SURG CHOLECYSTECTOMY W/CHOLANGIOGRAPHY 10/14/2023 Dr. Macdonald LOCAL REVISION OF ILESTOMY 02/24/2022 LYSIS OF ADHESIONS 10/14/2023 Dr. Macdonald PAST SURGICAL HISTORY OF multiplr vaginoplasty- RV fistual after FAVD & 4th degree REMOVAL GALLBLADDER 10/14/2023 FAMILY HISTORY Problem Relation Age of Onset Heart disease Mother arythmia Diabetes Father Hypertension Father Thyroid Cancer Paternal Aunt 52 Cervical Cancer Paternal Aunt Uterine Cancer Paternal Aunt Breast Cancer Paternal Aunt 20 - 29 Ovarian cancer Paternal Aunt 20 - 29 Thyroid Cancer Paternal Aunt 19 resolved Breast Cancer Paternal Aunt 20 - 29 Kidney Disease Maternal Grandmother other (lupus) Maternal Grandmother Stroke Maternal Grandmother Heart Attack Maternal Grandmother Blood Clots Maternal Grandmother Colon Cancer Paternal Grandmother late 50's Coronary Artery Disease Paternal Grandmother 40's Diabetes Paternal Grandmother Hypertension Paternal Grandmother Diabetes Paternal Grandfather Hypertension Paternal Grandfather Alzheimer's Disease No Family History Hyperlipidemia No Family History Thyroid No Family History Seizures No Family History Social History Tobacco Use Smoking status: Some Days Years: 4 Types: Cigarettes Smokeless tobacco: Never Tobacco comments: Stopped smoking cigarettes, just uses vape now Vaping Use Vaping Use: current everyday user Start date: 05/12/2023 Substances: Nicotine, Flavoring Devices: Disposable Substance Use Topics Alcohol use: Yes Alcohol/week: 1.0 standard drink of alcohol Types: 1 Cans of beer per week Comment: monthly Drug use: No Current Outpatient Medications Medication Sig TRULICITY 1.5 mg/0.5 mL pen injector Inject 3 mg subcutaneously one time a week dulaglutide (TRULICITY) 3 mg/0.5 mL pen injector Inject 3 mg subcutaneously one time a week. Patient should start on March 21, 2024. Phentermine HCl 37.5 mg tablet Take 1 tablet by mouth once daily for 90 days. topiramate (TOPAMAX) 25 mg tablet Take 4 tablets by mouth once daily. No current facility-administered medications for this visit. ALLERGIES Allergen Reactions Tree Nuts Rash Morphine Other: See Comments Tightness in chest REVIEW OF SYSTEMS: SEE HPI PHYSICAL EXAMINATION: VIDEO EXAM: (if completed, performed via video enabled technology) GENERAL: alert and appropriate, in no distress, well-hydrated, well nourished, and happy, smiling, interactive ASSESSMENT: ASSESSMENT/PLAN: 1. ADHD (attention deficit hyperactivity disorder), predominantly hyperactive impulsive type - ICD9: 314.01, ICD10: F90.1 - VILOXAZINE ER 200 MG CAPSULE,EXTENDED RELEASE 24 HR I spent a total of 17 minutes on the date of the service which included preparing to see the patient, [id number] patient care, completing clinical documentation, obtaining and/or reviewing separately obtained history, performing a medically appropriate examination, counseling and educating the pat ient/family/caregiver, ordering medications, tests, or procedures, communicating with other HCPs (not separately reported), and care coordination (not separately reported) Cooper Gastelum APRN.HOME VISITOR [employer] documented in this encounterMem[facility] History of Present illness Narrative* Darryl Ramirez APRN.HOME VISITOR [employer] - 05/02/2024 6:43 AM EDT VIRTUAL VISIT PROGRESS NOTE This is a virtual visit using [employer] Video Visit. It required patient- provider interaction for the medical decision making as documented below. I have communicated my name and active licensure. The patient's identity and physical location wereverified at the time of this visit. Either the patient or their legal insurance sales representative has been informed of the risks and benefits of -- and alternatives to -- treatment through a remote evaluation andconsents to proceed with the evaluation remotely. Leelee Zamora is a 29 year old female seen to discuss getting a blood test along with hormone testing. Pt states she missed her cycle, thinks is related to stress. She took 10 tests which wereall negative but would like to get a blood test. She states for the past 4 months, states the periods have been irregular. She states they have beencoming 3-4 days late at times, other times normal or can have 2 in one month. One month, states wasextremely painful. Last period March 24, lasted 5 days. She states they typically will last 3-5 days. She states light to normal to heavy flow. First day is heavy, going through tampon every 30 min. And has been this way for the past 5 months. She is not currently having any pain. She states she has not missed a cycle for the past one year. She states one month, had 2 cycles in one month. Pt with hx of DVT Had 4th degree tear from forceps delivery She states she has been so stressed recently, moved earlier this month. Single mother, in college She is sexually active, using condoms. HISTORY REVIEWED (electronic chart updated): PAST MEDICAL HISTORY Diagnosis Date Acute deep vein thrombosis (DVT) of popliteal vein of right lower extremity (HCC) 02/2022 Allergic rhinitis, unspecified 12/16/2018 Bowel obstruction (HCC) 2022 Encounter for insertion of mirena IUD 12/24/2021 Ex-smoker 12/16/2018 Started at age 19 up to 12-1 PPD, quit 05/2018 SAMAN (generalized anxiety disorder) 12/16/2018 [facility]. History of chlamydia 16 YO History of gastroesophageal reflux (GERD) 12/16/2018 History of morbid obesity Psoriasis 12/16/2018 Vitamin D deficiency 12/16/2018 PAST SURGICAL HISTORY Procedure Laterality Date CYST EXCISION 2016 right leg D&C, DIAG AND/OR THERAPEUTIC 2019 EXTRACTION, ERUPTED TOOTH OR EXPOSED ROOT (ELEVATION AND/OR FORCEPS REMOVAL) 2012 LAPS SURG CHOLECYSTECTOMY W/CHOLANGIOGRAPHY 10/14/2023 Dr. Macdonald LOCAL REVISION OF ILESTOMY 02/24/2022 LYSIS OF ADHESIONS 10/14/2023 Dr. Macdonald PAST SURGICAL HISTORY OF multiplr vaginoplasty- RV fistual after FAVD & 4th degree REMOVAL GALLBLADDER 10/14/2023 FAMILY HISTORY Problem Relation Age of Onset Heart disease Mother arythmia Diabetes Father Hypertension Father Thyroid Cancer Paternal Aunt 52 Cervical Cancer Paternal Aunt Uterine Cancer Paternal Aunt Breast Cancer Paternal Aunt 20 - 29 Ovarian cancer Paternal Aunt 20 - 29 Thyroid Cancer Paternal Aunt 19 resolved Breast Cancer Paternal Aunt 20 - 29 Kidney Disease Maternal Grandmother other (lupus) Maternal Grandmother Stroke Maternal Grandmother Heart Attack Maternal Grandmother Blood Clots Maternal Grandmother Colon Cancer Paternal Grandmother late 50's Coronary Artery Disease Paternal Grandmother 40's Diabetes Paternal Grandmother Hypertension Paternal Grandmother Diabetes Paternal Grandfather Hypertension Paternal Grandfather Alzheimer's Disease No Family History Hyperlipidemia No Family History Thyroid No Family History Seizures No Family History Social History Tobacco Use Smoking status: Some Days Years: 4 Types: Cigarettes Smokeless tobacco: Never Tobacco comments: Stopped smoking cigarettes, just uses vape now Vaping Use Vaping Use: current everyday user Start date: 05/12/2023 Substances: Nicotine, Flavoring Devices: Disposable Substance Use Topics Alcohol use: Yes Alcohol/week: 1.0 standard drink of alcohol Types: 1 Cans of beer per week Comment: monthly Drug use: No Current Outpatient Medications Medication Sig TRULICITY 1.5 mg/0.5 mL pen injector Inject 3 mg subcutaneously one time a week dulaglutide (TRULICITY) 3 mg/0.5 mL pen injector Inject 3 mg subcutaneously one time a week. Patient should start on March 21, 2024. Phentermine HCl 37.5 mg tablet Take 1 tablet by mouth once daily for 90 days. topiramate (TOPAMAX) 25 mg tablet Take 4 tablets by mouth once daily. fluticasone (FLONASE) 50 mcg/actuation nasal spray Use 2 Sprays in each nostril once daily. Rinse mouth after use. (Patient not taking: Reported on 02/16/2024) No current facility-administered medications for this visit. ALLERGIES Allergen Reactions Tree Nuts Rash Morphine Other: See Comments Tightness in chest PHYSICAL EXAMINATION: VIDEO EXAM: (if completed, performed via video enabled technology) GENERAL: alert and appropriate, in no distress, well-hydrated, well nourished, and happy, smiling, interactive ASSESSMENT/PLAN: 1. Menorrhagia with irregular cycle - ICD9: 626.2, ICD10: N92.1 (primary diagnosis) Discussed PCOS. Pt to send me menstrual dates for past 6 months for further evaluation. Will get u/s given newer menorrhagia for past 5 months. - PELVIC US WHI - Pt interested in considering hormonal management if able due to previous hx of blood clot 2. Missed menses - ICD9: 626.4, ICD10: N92.6 Discussed PCOS vs stress - HCG QUANTITATIVE 3. PCOS (polycystic ovarian syndrome) - ICD9: 256.4, ICD10: E28.2 I spent a total of 20 minutes on the date of the service which included preparing to see the patient, [id number] patient care, completing clinical documentation, obtaining and/or reviewing separately obtained history, counseling and educating the patient/family/caregiver, and ordering medications, tests, or procedures. Darryl Ramirez APRN.YADI documented in this encounterMem[facility] History of Present illness Narrative* Keri Rush APRN.CNP - 02/25/2024 1:25 PM EDT CC Patient presents with: Diarrhea: Fatigue and diarrhea x 2 weeks, night sweats w/o fever, concerned she may have C. Diff HPI Leelee Zamora is a 28 year old female who presents with diarrhea for two weeks that is gradually worsening. Diarrhea is described as profuse watery occuring 10 stools/day on average. Associated with chills, fatigue, abdominal cramping, nausea, decreased appetite Reports recent antibiotics: Augmentin 02/01 to 02/08 and Macrobid 02/17 to 02/22. She is also on Trulicity with dose recently increased from 0.75 to 1.5 mg weekly on 02/15 however diarrhea started before dose was increased. Denies: heartburn/reflux, vomiting, constipation, black/bloody stools, bloating,recent foreign travel, eating at a restaurant, recent camping or sick contacts Treatments: nothing so far. Pushing fluids including electrolyte replacement drinks Review of Systems Constitutional: Positive for chills, diaphoresis and fatigue. Negative for fever and unexpected weight change. Respiratory: Negative for cough, shortness of breath and wheezing. Cardiovascular: Negative for chest pain, palpitations and leg swelling. Genitourinary: Negative for decreased urine volume. Musculoskeletal: Negative for arthralgias, joint swelling and myalgias. Skin: Negative for rash. Allergic/Immunologic: Negative for food allergies. Neurological: Negative for dizziness, syncope, weakness and light-headedness. PAST MEDICAL HISTORY Diagnosis Date Acute deep vein thrombosis (DVT) of popliteal vein of right lower extremity (HCC) 02/2022 Allergic rhinitis, unspecified 12/16/2018 Bowel obstruction (HCC) 2022 Encounter for insertion of mirena IUD 12/24/2021 Ex-smoker 12/16/2018 Started at age 19 up to 1/2-1 PPD, quit 05/2018 SAMAN (generalized anxiety disorder) 12/16/2018 [facility]. History of chlamydia 16 YO History of gastroesophageal reflux (GERD) 12/16/2018 History of morbid obesity Psoriasis 12/16/2018 Vitamin D deficiency 12/16/2018 PAST SURGICAL HISTORY Procedure Laterality Date CYST EXCISION 2016 right leg D&C, DIAG AND/OR THERAPEUTIC 2019 EXTRACTION, ERUPTED TOOTH OR EXPOSED ROOT (ELEVATION AND/OR FORCEPS REMOVAL) 2012 LAPS SURG CHOLECYSTECTOMY W/CHOLANGIOGRAPHY 10/14/2023 Dr. Macdonald LOCAL REVISION OF ILESTOMY 02/24/2022 LYSIS OF ADHESIONS 10/14/2023 Dr. Macdonald PAST SURGICAL HISTORY OF multiplr vaginoplasty- RV fistual after FAVD & 4th degree REMOVAL GALLBLADDER 10/14/2023 ALLERGIES Tree Nuts and Morphine MEDICATIONS dulaglutide (TRULICITY) 1.5 mg/0.5 mL pen injector Inject 1.5 mg subcutaneously one time a week. Phentermine HCl 37.5 mg tablet Take 1 tablet by mouth once daily for 90 days. topiramate (TOPAMAX) 25 mg tablet Take 4 tablets by mouth once daily. [START ON 03/21/2024] dulaglutide (TRULICITY) 3 mg/0.5 mL pen injector Inject 3 mg subcutaneously one time a week. Patient should start on March 21, 2024. fluticasone (FLONASE) 50 mcg/actuation nasal spray Use 2 Sprays in each nostril once daily. Rinse mouth after use. (Patient not taking: Reported on 02/16/2024) FAMILY HISTORY Problem Relation Age of Onset Heart disease Mother arythmia Diabetes Father Hypertension Father Thyroid Cancer Paternal Aunt 52 Cervical Cancer Paternal Aunt Uterine Cancer Paternal Aunt Breast Cancer Paternal Aunt 20 - 29 Ovarian cancer Paternal Aunt 20 - 29 Thyroid Cancer Paternal Aunt 19 resolved Breast Cancer Paternal Aunt 20 - 29 Kidney Disease Maternal Grandmother other (lupus) Maternal Grandmother Stroke Maternal Grandmother Heart Attack Maternal Grandmother Blood Clots Maternal Grandmother Colon Cancer Paternal Grandmother late 50's Coronary Artery Disease Paternal Grandmother 40's Diabetes Paternal Grandmother Hypertension Paternal Grandmother Diabetes Paternal Grandfather Hypertension Paternal Grandfather Alzheimer's Disease No Family History Hyperlipidemia No Family History Thyroid No Family History Seizures No Family History Social History Tobacco Use Smoking status: Some Days Years: 4 Types: Cigarettes Smokeless tobacco: Never Tobacco comments: Stopped smoking cigarettes, just uses vape now Vaping Use Vaping Use: current everyday user Start date: 05/12/2023 Substances: Nicotine, Flavoring Devices: Disposable Substance Use Topics Alcohol use: Yes Alcohol/week: 1.0 standard drink of alcohol Types: 1 Cans of beer per week Comment: monthly Drug use: No BP 138/76 Pulse 106 Resp 18 Wt 94.8 kg (209 lb) LMP 11/19/2023 (Approximate) SpO2 98% BMI 38.22 kg/m Physical Exam Vitals reviewed. Constitutional: General: She is not in acute distress. Appearance: Normal appearance. She is not ill-appearing or toxic-appearing. HENT: Mouth/Throat: Lips: Donora. Mouth: Mucous membranes are moist. Pharynx: Oropharynx is clear. Cardiovascular: Rate and Rhythm: Normal rate and regular rhythm. Pulses: Normal pulses. Heart sounds: Normal heart sounds. No murmur heard. Pulmonary: Effort: Pulmonary effort is normal. Breath sounds: Normal breath sounds. No wheezing, rhonchi or rales. Abdominal: General: Bowel sounds are increased. There is no distension. Palpations: Abdomen is soft. There is no hepatomegaly, splenomegaly or mass. Tenderness: There is abdominal tenderness (mild, LLQ). There is no guarding or rebound. Skin: General: Skin is warm and dry. Neurological: Mental Status: She is alert. ASSESSMENT/PLAN: 1. Diarrhea of presumed infectious origin - ICD9: 009.3, ICD10: R19.7 (primary diagnosis) Differentials include infection such as C-diff or side effect of Trulicity Further evaluation with: - COMPLETE BLOOD COUNT - COMPREHENSIVE METABOLIC PANEL - ENTERIC BACTERIAL PANEL BY PCR - C. DIFFICILE PCR Follow-up and recommendations pending results of work-up although I do recommend holding off on next injection of Trulicity for now, even though it may not be the cause of diarrhea it could be exacerbating it 2. Abdominal cramping - ICD9: 789.00, ICD10: R10.9 As above - COMPLETE BLOOD COUNT - COMPREHENSIVE METABOLIC PANEL - ENTERIC BACTERIAL PANEL BY PCR - C. DIFFICILE PCR Keri Rush APRN.HOME VISITOR [employer] Prescription instructions reviewed with patient as applicable. Potential red flag symptoms discussed with the patient. Reviewed appropriate action plan to take if red flag symptoms occur. Patient agreeable to treatment plan Keri Rush APRN.CNP documented in this encounterMem[facility] Telephone encounter Note * Telephone Encounter - Fay Rodgers OCCA - 02/25/2024 12:56 PM EDT Patient notified. BREONNA Santa [facility]05-16-[facility] Miscellaneous Notes* Telephone Encounter - Fay Rodgers OCCA - 02/25/2024 12:56 PM EDT Patient notified. BREONNA Santa * Telephone Encounter - Keri Rush APRN.CNP - 02/25/2024 12:52 PM EDT She will need seen in the office as scheduled Keri Rush APRN.CNP * Telephone Encounter - Fay Rodgers OCCA - 02/25/2024 12:36 PM EDT TC to patient for further information on appointment scheduled for today with Neha Rush. Patient states she has had fatigue and diarrhea x 2 weeks. Has also had night sweats but no fever. At first she thought this was d/t gallbladder removal from 10/14/23, but patient is now concerned she has C. Diff which she previously had in June of 2022. She finished Macrobid 2 days ago for UTI and before that was on Amoxicillin for an ear infection. Diarrhea started a few days before finishing the Amoxicillin. Hasn't tried an antidiarrheal stating they often cause her to be constipated. Patient asking if she should come in to be seen or if provider would like to order lab work that she can complete to test for C. Diff. Please review and advise. Thank you. BREONNA Santa documented [facility] Telephone encounter Note * Telephone Encounter - Keri Rush APRN.CNP - 02/25/2024 12:52 PM EDT She will need seen in the office as scheduled Keri Rush APRN.CNP [facility] Work Phone: [phone] Telephone encounter Note* Telephone Encounter - Fay Rodgers OCCA - 02/25/2024 12:36 PM EDT TC to patient for further information on appointment scheduled for today with Neha Rush. Patient states she has had fatigue and diarrhea x 2 weeks. Has also had night sweats but no fever. At first she thought this was d/t gallbladder removal from 10/14/23, but patient is now concerned she has C. Diff which she previously had in June of 2022. She finished Macrobid 2 days ago for UTI and before that was on Amoxicillin for an ear infection. Diarrhea started a few days before finishing the Amoxicillin. Hasn't tried an antidiarrheal stating they often cause her to be constipated. Patient asking if she should come in to be seen or if provider would like to order lab work that she can complete to test for C. Diff. Please review and advise. Thank you. BREONNA Santa [facility]05-09-2024 Instructions* Patient Instructions* Cristino Rodriguez PA-C - 02/18/2024 7:43 PM EDT - Begin treatment with Macrobid 100 mg BID for 5 days - NITROFURANTOIN MONOHYDRATE & MACROCRYSTAL 100 MG ORAL CAP Increase fluids Call PCP if symptoms are not better Go to ER for fever and flank pain documented in this encounterMem[facility] History of Present illness Narrative* Cristino Rodriguez PA-C - 02/18/2024 7:40 PM EDT This note was created using avolution. Subjective Leelee Zamora is a 28 year old female. HPI Telemedicine Visit - Distance Health Virtual Visit Note Patient seen on [employer] Video Visit platform. Location of patient: [place] I have communicated my name and active licensure. The patient's identity and physical location wereverified at the time of this visit. Either the patient or their legal insurance sales representative has been informed of the risks and benefits of -- and alternatives to -- exam components are done virtually with patients participation as needed. Seen on [place] [employer] Located in [place] Pt has dysuria started today. Last UTI 6 months ago. Review of Systems Constitutional: Negative for chills and fever. Genitourinary: Positive for dysuria, frequency and urgency. Negative for flank pain and hematuria. Objective LMP 11/19/2023 (Approximate) Physical Exam Constitutional: Appearance: Normal appearance. HENT: Head: Normocephalic and atraumatic. Abdominal: Tenderness: There is no abdominal tenderness. There is no right CVA tenderness or left CVA tenderness. Neurological: Mental Status: She is alert. Assessment and Plan ASSESSMENT/PLAN: 1. Urinary tract infection without hematuria, site unspecified - ICD9: 599.0, ICD10: N39.0 acute - Begin treatment with Macrobid 100 mg BID for 5 days - NITROFURANTOIN MONOHYDRATE & MACROCRYSTAL 100 MG ORAL CAP Cristino Rodriguez PA-C documented in this encounterMem[facility]-07-[facility]24 Instructions* Patient Instructions* Fabian Brasher MD - 02/16/2024 4:28 PM EDT BMI psychology - Dr Mary JORDAN documented in this encounterMem[facility] History of Present illness Narrative* Fabian Brasher MD - 02/16/2024 3:50 PM EDT Images from the original note were not included. BMI Obesity Medicine FollowUp Note February 16, 2024 Patient Summary: Leelee Zamora is 28 year old Female who presents for follow-up evaluation of her obesity and related complications to the [facility] Bariatric and Metabolic Irene. Interval History: Returns after 3 months. Reports having more stress. Multiple factors, incl her ex-, child, family deaths, college, work Less attention to physical activity On trulicity 0.75mg per week. Not as effective as Mounjaro Obesity Medications: Phentermine , 10/29/22, 255lbs - appetite reduction, taking 1/2 dose - decreased binge eating - overall she thinks it helps sometimes and it doesn't other time - no SE Topiramate. Start Date: 08/17/23 Weight: 205 Effects Reduced hunger Reports appetite is variable; does crave a lot of protein . Diet: Reports quality of diet as some days healthy and other days unhealthy. Current nutrition plan includes none Currently f/b None Exercise: Change in physical activity: No; tries to workout at home. Barriers to regular exercise? None Work-related activity:Active. ?Sleep: Change in sleep No: Reports quality of sleep is good and sleeps approximately 6 to 9 hours a night ??Stress: none Review of Systems: The physical systems reviewed reveal no pathological symptoms that are pertinent to this visit History reviewed in Epic Current Outpatient Medications Medication Sig TRULICITY 0.75 mg/0.5 mL pen injector Inject 0.75 mg subcutaneously one time a week topiramate (TOPAMAX) 25 mg tablet Take 4 tablets by mouth once daily. Phentermine HCl 37.5 mg capsule Take 1 capsule by mouth daily before breakfast for 90 days. fluticasone (FLONASE) 50 mcg/actuation nasal spray Use 2 Sprays in each nostril once daily. Rinse mouth after use. (Patient not taking: Reported on 02/16/2024) No current facility-administered medications for this visit. PAST MEDICAL HISTORY Diagnosis Date Acute deep vein thrombosis (DVT) of popliteal vein of right lower extremity (HCC) 02/2022 Allergic rhinitis, unspecified 12/16/2018 Bowel obstruction (HCC) 2022 Encounter for insertion of mirena IUD 12/24/2021 Ex-smoker 12/16/2018 Started at age 19 up to 1/2-1 PPD, quit 05/2018 SAMAN (generalized anxiety disorder) 12/16/2018 Seeing Klaus Gonzalez at the [facility] center. History of chlamydia 16 YO History of gastroesophageal reflux (GERD) 12/16/2018 History of morbid obesity Psoriasis 12/16/2018 Vitamin D deficiency 12/16/2018 PAST SURGICAL HISTORY Procedure Laterality Date CYST EXCISION 2016 right leg D&C, DIAG AND/OR THERAPEUTIC 2019 EXTRACTION, ERUPTED TOOTH OR EXPOSED ROOT (ELEVATION AND/OR FORCEPS REMOVAL) 2012 LAPS SURG CHOLECYSTECTOMY W/CHOLANGIOGRAPHY 10/14/2023 Dr. Macdonald LOCAL REVISION OF ILESTOMY 02/24/2022 LYSIS OF ADHESIONS 10/14/2023 Dr. Macdonald PAST SURGICAL HISTORY OF multiplr vaginoplasty- RV fistual after FAVD & 4th degree REMOVAL GALLBLADDER 10/14/2023 Physical Exam: BP 131/69 Pulse 94 Resp 16 Ht 157.5 cm (5' 2.01) Wt 96 kg (211 lb 10.3 oz) LMP 11/19/2023 (Approximate) BMI 38.70 kg/m NAD Results: reviewed labs with the patient. Waist 37 (35.5') in Impression: Leelee Zamora is a 28 year old year old female with Class II obesity and the above obesity relatedcomplications. Initial loss 80lbs (30%BW) since 08/2022 with Mounjaro ( supply/PA issues) and phentermine; Weight gained from bronson weight (192lbs) likely 2/2 DC Mounjaro, inactivity. She has stable wt around 200 and 210 lbs on Topiramate and Phentermine. Body mass index is 38.7 kg/m . Suboptimal responding to low dose dulaglutide, continues on phentermine and topiramate Lifestyle unchanged Currently motivated Plan: -- Continue towards improving life-style modification; add strength exercise -- c/w topiramate and phentermine -- increase trulicity as tolerated 1.5, 3, 4.5mg -- f/u with Dr. Rosenberg, PhD for BED -- return to clinic/virtually in 3 months Marcela Brasher MD MSc FTOS All documentation from previous visit of November 18, 2023 was copied and pasted, documentation has been reviewed and edited as necessary for today's visit. I spent a total of 45 minutes on the date of the service which included preparing to see the patient, [id number] patient care, completing clinical documentation, performing a medically appropriate examination, counseling and educating the patient/family/caregiver, and ordering medications, tests,or procedures. documented in this encounterMem[facility]04-23-[facility] History of Present illness Narrative* Maryann Matias PA-C - 02/02/2024 2:11 PM EDT This note was created using [employer]. Subjective Leelee Zamora is a 28 year old female. HPI Presents with a chief complaint of right facial swelling. She was here about a week ago for right ear pain and was given Flonase and prednisone for eustachian tube dysfunction. She noticed this morning however she has some facial swelling on the right side of her face. Denies dental pain. No fever.No cough, runny nose or sore throat. Her ear does feel better. Review of Systems Constitutional: Negative. HENT: Positive for ear pain and facial swelling. Negative for congestion, rhinorrhea and sore throat. Respiratory: Negative. Cardiovascular: Negative. Gastrointestinal: Negative. Genitourinary: Negative. Musculoskeletal: Negative. All other systems reviewed and are negative. PAST MEDICAL HISTORY Diagnosis Date Acute deep vein thrombosis (DVT) of popliteal vein of right lower extremity (HCC) 02/2022 Allergic rhinitis, unspecified 12/16/2018 Bowel obstruction (HCC) 2022 Encounter for insertion of mirena IUD 12/24/2021 Ex-smoker 12/16/2018 Started at age 19 up to 1/2-1 PPD, quit 05/2018 SAMAN (generalized anxiety disorder) 12/16/2018 Seeing Klaus Gonzalez at the [facility] center. History of chlamydia 16 YO History of gastroesophageal reflux (GERD) 12/16/2018 History of morbid obesity Psoriasis 12/16/2018 Vitamin D deficiency 12/16/2018 Current Outpatient Medications Medication Sig Dispense Refill predniSONE (DELTASONE) 10 mg tablet Take 4 tabs daily for 3 days, then 2 tabs daily for 3 days, then 1 tab daily for 3 days with food. 21 tablet 0 fluticasone (FLONASE) 50 mcg/actuation nasal spray Use 2 Sprays in each nostril once daily. Rinse mouth after use. 1 Each 1 topiramate (TOPAMAX) 25 mg tablet Take 4 tablets by mouth once daily. 120 tablet 2 dulaglutide (TRULICITY) 0.75 mg/0.5 mL pen injector Inject 0.75 mg subcutaneously one time a week. 2 mL 2 Phentermine HCl 37.5 mg capsule Take 1 capsule by mouth daily before breakfast for 90 days. 30 capsule 2 amoxicillin-clavulanate potassium (AUGMENTIN) 875-125 mg per tablet Take 1 tablet by mouth two times a day for 7 days. 14 tablet 0 No current facility-administered medications for this visit. PAST SURGICAL HISTORY Procedure Laterality Date CYST EXCISION 2016 right leg D&C, DIAG AND/OR THERAPEUTIC 2019 EXTRACTION, ERUPTED TOOTH OR EXPOSED ROOT (ELEVATION AND/OR FORCEPS REMOVAL) 2012 LAPS SURG CHOLECYSTECTOMY W/CHOLANGIOGRAPHY 10/14/2023 Dr. Macdonald LOCAL REVISION OF ILESTOMY 02/24/2022 LYSIS OF ADHESIONS 10/14/2023 Dr. Macdonald PAST SURGICAL HISTORY OF multiplr vaginoplasty- RV fistual after FAVD & 4th degree REMOVAL GALLBLADDER 10/14/2023 FAMILY HISTORY Problem Relation Age of Onset Heart disease Mother arythmia Diabetes Father Hypertension Father Thyroid Cancer Paternal Aunt 52 Cervical Cancer Paternal Aunt Uterine Cancer Paternal Aunt Breast Cancer Paternal Aunt 20 - 29 Ovarian cancer Paternal Aunt 20 - 29 Thyroid Cancer Paternal Aunt 19 resolved Breast Cancer Paternal Aunt 20 - 29 Kidney Disease Maternal Grandmother other (lupus) Maternal Grandmother Stroke Maternal Grandmother Heart Attack Maternal Grandmother Blood Clots Maternal Grandmother Colon Cancer Paternal Grandmother late 50's Coronary Artery Disease Paternal Grandmother 40's Diabetes Paternal Grandmother Hypertension Paternal Grandmother Diabetes Paternal Grandfather Hypertension Paternal Grandfather Alzheimer's Disease No Family History Hyperlipidemia No Family History Thyroid No Family History Seizures No Family History Social History Tobacco Use Smoking status: Some Days Years: 4 Types: Cigarettes Smokeless tobacco: Never Tobacco comments: Stopped smoking cigarettes, just uses vape now Vaping Use Vaping Use: current everyday user Start date: 05/12/2023 Substances: Nicotine, Flavoring Devices: Disposable Substance Use Topics Alcohol use: Yes Alcohol/week: 1.0 standard drink of alcohol Types: 1 Cans of beer per week Comment: monthly Drug use: No Objective BP 122/70 Pulse 104 Temp 37.1 C (98.8 F) Resp 18 Wt 94 kg (207 lb 3.7 oz) LMP 11/19/2023 (Approximate) SpO2 99% BMI 37.89 kg/m Physical Exam Vitals reviewed. Constitutional: Appearance: Normal appearance. HENT: Head: Comments: Patient has some mild facial swelling at the angle of the jaw on the right. No erythema or sign of cellulitis. Parotid gland minimally prominent. No lymphadenopathy palpated otherwise. No obvious dental abscess on examination of the oral cavity. No significantly decayed teeth. No trismus. Right Ear: Tympanic membrane, ear canal and external ear normal. Left Ear: Tympanic membrane, ear canal and external ear normal. Nose: Nose normal. Mouth/Throat: Mouth: Mucous membranes are moist. Pharynx: Oropharynx is clear. Cardiovascular: Rate and Rhythm: Normal rate and regular rhythm. Heart sounds: Normal heart sounds. Pulmonary: Effort: Pulmonary effort is normal. Breath sounds: Normal breath sounds. Musculoskeletal: Cervical back: Neck supple. Lymphadenopathy: Cervical: No cervical adenopathy. Skin: General: Skin is warm and dry. Neurological: Mental Status: She is alert. Assessment and Plan ASSESSMENT/PLAN: 1. Right facial swelling - ICD9: 784.2, ICD10: R22.0 Likely mild parotitis however dental infection also on differential. Discussed doing warm compresses over the parotid gland, eating sour candy. Will cover with Augmentin. Red flags for ER care discussed. Patient agreeable with plan. Maryann Matias PA-C documented in this encounterMem[facility]04-[facility] History of Present illness Narrative* Michael Rosado APRN.HOME VISITOR [employer] - 01/27/2024 11:49 AM EDT Subjective HPI HPI Leelee Zamora is a 28 year old female who presents today for CC of congestion, cough, scratchythroat, right ear pain, h/a. This started 4 days ago. Has tried otc medication for relief. Symptomsare worsened by nothing . Risk factors vapes. Denies possibility of being . .Patient presents with: Ear Pain: Right ear pain and CHO x 4 days PAST MEDICAL HISTORY Diagnosis Date Acute deep vein thrombosis (DVT) of popliteal vein of right lower extremity (HCC) 02/2022 Allergic rhinitis, unspecified 12/16/2018 Bowel obstruction (HCC) 2022 Encounter for insertion of mirena IUD 12/24/2021 Ex-smoker 12/16/2018 Started at age 19 up to 10/13-1 PPD, quit 05/2018 SAMAN (generalized anxiety disorder) 12/16/2018 [facility]. History of chlamydia 16 YO History of gastroesophageal reflux (GERD) 12/16/2018 History of morbid obesity Psoriasis 12/16/2018 Vitamin D deficiency 12/16/2018 PAST SURGICAL HISTORY Procedure Laterality Date CYST EXCISION 2016 right leg D&C, DIAG AND/OR THERAPEUTIC 2019 EXTRACTION, ERUPTED TOOTH OR EXPOSED ROOT (ELEVATION AND/OR FORCEPS REMOVAL) 2012 LAPS SURG CHOLECYSTECTOMY W/CHOLANGIOGRAPHY 10/14/2023 Dr. Macdonald LOCAL REVISION OF ILESTOMY 02/24/2022 LYSIS OF ADHESIONS 10/14/2023 Dr. Macdonald PAST SURGICAL HISTORY OF multiplr vaginoplasty- RV fistual after FAVD & 4th degree REMOVAL GALLBLADDER 10/14/2023 ALLERGIES Tree Nuts and Morphine MEDICATIONS topiramate (TOPAMAX) 25 mg tablet Take 4 tablets by mouth once daily. dulaglutide (TRULICITY) 0.75 mg/0.5 mL pen injector Inject 0.75 mg subcutaneously one time a week. Phentermine HCl 37.5 mg capsule Take 1 capsule by mouth daily before breakfast for 90 days. FAMILY HISTORY Problem Relation Age of Onset Heart disease Mother arythmia Diabetes Father Hypertension Father Thyroid Cancer Paternal Aunt 52 Cervical Cancer Paternal Aunt Uterine Cancer Paternal Aunt Breast Cancer Paternal Aunt 20 - 29 Ovarian cancer Paternal Aunt 20 - 29 Thyroid Cancer Paternal Aunt 19 resolved Breast Cancer Paternal Aunt 20 - 29 Kidney Disease Maternal Grandmother other (lupus) Maternal Grandmother Stroke Maternal Grandmother Heart Attack Maternal Grandmother Blood Clots Maternal Grandmother Colon Cancer Paternal Grandmother late 50's Coronary Artery Disease Paternal Grandmother 40's Diabetes Paternal Grandmother Hypertension Paternal Grandmother Diabetes Paternal Grandfather Hypertension Paternal Grandfather Alzheimer's Disease No Family History Hyperlipidemia No Family History Thyroid No Family History Seizures No Family History Social History Tobacco Use Smoking status: Some Days Years: 4 Types: Cigarettes Smokeless tobacco: Never Tobacco comments: Stopped smoking cigarettes, just uses vape now Vaping Use Vaping Use: current everyday user Start date: 05/12/2023 Substances: Nicotine, Flavoring Devices: Disposable Substance Use Topics Alcohol use: Yes Alcohol/week: 1.0 standard drink of alcohol Types: 1 Cans of beer per week Comment: monthly Drug use: No Review of Systems Constitutional: Negative for fever. HENT: Positive for congestion, ear pain and sore throat. Negative for ear discharge and nosebleeds. Respiratory: Positive for cough. Negative for shortness of breath and wheezing. Musculoskeletal: Negative for neck pain. Skin: Negative for itching and rash. Neurological: Positive for headaches. Objective Blood pressure 128/82, pulse 91, temperature 37.2 C (98.9 F), temperature source Tympanic, resp. rate 18, weight 95 kg (209 lb 7 oz), last menstrual period 11/19/2023, SpO2 97%. Physical Exam Constitutional: General: She is not in acute distress. Appearance: She is not toxic-appearing or diaphoretic. HENT: Head: Normocephalic and atraumatic. Right Ear: Hearing, tympanic membrane, ear canal and external ear normal. Left Ear: Hearing, tympanic membrane, ear canal and external ear normal. Nose: Nose normal. Mouth/Throat: Pharynx: Uvula midline. No pharyngeal swelling, oropharyngeal exudate, posterior oropharyngeal erythema or uvula swelling. Eyes: General: Lids are normal. No scleral icterus. Right eye: No discharge. Left eye: No discharge. Conjunctiva/sclera: Conjunctivae normal. Pupils: Pupils are equal, round, and reactive to light. Neck: Trachea: Trachea normal. Cardiovascular: Rate and Rhythm: Normal rate and regular rhythm. Heart sounds: Normal heart sounds. Pulmonary: Effort: Pulmonary effort is normal. Breath sounds: Normal breath sounds. Musculoskeletal: Cervical back: Normal range of motion and neck supple. Lymphadenopathy: Cervical: No cervical adenopathy. Right cervical: No superficial cervical adenopathy. Left cervical: No superficial cervical adenopathy. Skin: Findings: No rash. Neurological: Mental Status: She is alert and oriented to person, place, and time. ASSESSMENT/PLAN: 1. ETD (Eustachian tube dysfunction), right - ICD9: 381.81, ICD10: H69.91 (primary diagnosis) -use medication as prescribed -follow up if symptoms persist, worsen, change - with ent - PREDNISONE 10 MG TABLET - FLUTICASONE PROPIONATE 50 MCG/ACTUATION NASAL SPRAY,SUSPENSION 2. URI, acute - ICD9: 465.9, ICD10: J06.9 - Discussed viral etiology and rationale for treatment. - Symptomatic treatment with prn analgesia - Supportive care with fluids and rest Michael Rosado APRN.CNP documented in this encounterMem[facility]03-17-[facility]24 Instructions* Patient Instructions* Vianney Richardson APRN.CNP - 12/27/2023 11:28 AM EDT Take the medication as directed. Follow-up with your DIGITAL PRINT OPERATOR for any other concerns. documented in this encounterMemorial [facility]03-17-2024 History of Present illness Narrative* Vianney Richardson APRN.CNP - 12/27/2023 11:17 AM EDT Images from the original note were not included. December 27, 2023 Leelee Zamora 1995 VIRTUAL VISIT PROGRESS NOTE This is a virtual visit. It required patient-provider interaction for the medical decision making as documented below. Informed verbal consent was obtained from this patient to communicate and provide care using virtual and other telecommunications tools. This patient has been explained the risks related to unauthorized disclosure or interception of personal health information and steps they can take to help protect their information. We have discussed that care provided through video or audio communication cannot replace the need for physical examination or an in person visit for some disorders or urgent problems and patient understands the need to seek urgent care in an Emergency Department as necessary. I have communicated my name and active licensure. The patient's identity and physical location wereverified at the time of this visit. Either the patient or their legal insurance sales representative has been informed of the risks and benefits of -- and alternatives to -- treatment through a remote evaluation andconsents to proceed with the evaluation remotely. Platform patient seen on: [employer] Video Visit platform Location of patient: [place] Zamora is a 28 year old female seen for Patient presents with: Contraception HPI Pt visit today for emergency contraception. While having protected intercourse last night, the condom broke per pt. She is not on OCP. Pt states she cannot be on OCP d/t hx of blood clots following surgery. LMP 12/14/23. Pt states she took an ovulation test and it was negative. Pt has a DIGITAL PRINT OPERATOR, but cannot get in for some time. Pt voices no other concerns. HISTORY REVIEWED (electronic chart updated): PAST MEDICAL HISTORY Diagnosis Date Acute deep vein thrombosis (DVT) of popliteal vein of right lower extremity (HCC) 02/2022 Allergic rhinitis, unspecified 12/16/2018 Bowel obstruction (HCC) 2022 Encounter for insertion of mirena IUD 12/24/2021 Ex-smoker 12/16/2018 Started at age 19 up to 1/2-1 PPD, quit 05/2018 SAMAN (generalized anxiety disorder) 12/16/2018 [facility]. History of chlamydia 16 YO History of gastroesophageal reflux (GERD) 12/16/2018 History of morbid obesity Psoriasis 12/16/2018 Vitamin D deficiency 12/16/2018 PAST SURGICAL HISTORY Procedure Laterality Date CYST EXCISION 2016 right leg D&C, DIAG AND/OR THERAPEUTIC 2019 EXTRACTION, ERUPTED TOOTH OR EXPOSED ROOT (ELEVATION AND/OR FORCEPS REMOVAL) 2012 LAPS SURG CHOLECYSTECTOMY W/CHOLANGIOGRAPHY 10/14/2023 Dr. Macdonald LOCAL REVISION OF ILESTOMY 02/24/2022 LYSIS OF ADHESIONS 10/14/2023 Dr. Macdonald PAST SURGICAL HISTORY OF multiplr vaginoplasty- RV fistual after FAVD & 4th degree REMOVAL GALLBLADDER 10/14/2023 FAMILY HISTORY Problem Relation Age of Onset Heart disease Mother arythmia Diabetes Father Hypertension Father Thyroid Cancer Paternal Aunt 52 Cervical Cancer Paternal Aunt Uterine Cancer Paternal Aunt Breast Cancer Paternal Aunt 20 - 29 Ovarian cancer Paternal Aunt 20 - 29 Thyroid Cancer Paternal Aunt 19 resolved Breast Cancer Paternal Aunt 20 - 29 Kidney Disease Maternal Grandmother other (lupus) Maternal Grandmother Stroke Maternal Grandmother Heart Attack Maternal Grandmother Blood Clots Maternal Grandmother Colon Cancer Paternal Grandmother late 50's Coronary Artery Disease Paternal Grandmother 40's Diabetes Paternal Grandmother Hypertension Paternal Grandmother Diabetes Paternal Grandfather Hypertension Paternal Grandfather Alzheimer's Disease No Family History Hyperlipidemia No Family History Thyroid No Family History Seizures No Family History Social History Tobacco Use Smoking status: Some Days Years: 4 Types: Cigarettes Smokeless tobacco: Never Tobacco comments: Stopped smoking cigarettes, just uses vape now Vaping Use Vaping Use: current everyday user Start date: 05/12/2023 Substances: Nicotine, Flavoring Devices: Disposable Substance Use Topics Alcohol use: Yes Alcohol/week: 1.0 standard drink of alcohol Types: 1 Cans of beer per week Comment: monthly Drug use: No Current Outpatient Medications Medication Sig levonorgestrel (PLAN B ONE-STEP) 1.5 mg tab Take 1 tablet by mouth one time only for 1 dose. topiramate (TOPAMAX) 25 mg tablet Take 4 tablets by mouth once daily. dulaglutide (TRULICITY) 0.75 mg/0.5 mL pen injector Inject 0.75 mg subcutaneously one time a week. Phentermine HCl 37.5 mg capsule Take 1 capsule by mouth daily before breakfast for 90 days. No current facility-administered medications for this visit. ALLERGIES Allergen Reactions Tree Nuts Rash Morphine Other: See Comments Tightness in chest REVIEW OF SYSTEMS: Review of Systems PHYSICAL EXAMINATION: VIDEO EXAM: (performed via video enabled technology) GENERAL: alert and appropriate, in no distress, well-hydrated, well nourished, and happy, smiling, interactive OROPHARYNX: moist mucus membranes RESPIRATORY: breathing non-labored ASSESSMENT: (Z30.09) Emergency contraceptive counseling (primary encounter diagnosis) PLAN: Encounter Diagnosis ICD-10-CM 1. Emergency contraceptive counseling Z30.09 1. Emergency contraceptive counseling - ICD9: V25.03, ICD10: Z30.09 Plan B. Return if symptoms worsen or fail to improve. Patient Instructions Take the medication as directed. Follow-up with your DIGITAL PRINT OPERATOR for any other concerns. Medical Decision Making: Problems: Low: Acute, uncomplicated illness or injury Risk: Moderate: Drug management Medical Decision Making Level: 3 - Low -I have reviewed and updated with the patient: allergies, VS, current medications, Past Medical History,Past Surgical History,Past Family Medical History, Past Social History. - Patient education provided today. - Discussed with patient medications that are indicated and how to use the medications and what thepotential side effects are. - Follow up with PCP in 2-3 days if symptoms progress - Warning signs of worsening condition explained to patient, Red flags discussed - Patient in stable condition after questions answered and patient verbalizes understanding - Report to ED with any worsening symptoms or life-threatening concerns Vianney Richardson APRN.CNP If you let us know who your primary care provider is, we will send them a notification of today s visit through our electronic medical records system. Since not all providers have access to our notifications, we strongly encourage you to share the following record of today s visit with your primarycare provider at your next visit. This will help in providing you the best care. If you do not have an established Primary Care physician and would like to continue care with a [facility] Virtual Primary Care physician, please ask your provider to place a Establish PrimaryCare order. Use engageSimply to manage your care, wherever you are, 04/05, on your mobile device or computer. engageSimply connects you to [facility] so you can access all your health information in one place and also schedule and request virtual appointments with primary care providers. documented in this encounterMemorial [facility]02-[facility]24 Miscellaneous Notes* Telephone Encounter - Humberto Schultz MD - 12/10/2023 8:38 AM EST Roshan Mckoy had ordered ultrasound but my clinical nurse had asked me to review it since she statedyou expressed concern. Your ultrasound was essentially completely normal. You should have had a follow-up visit scheduled as it sounds like you have a lot of questions regarding fertility options and decision making regarding further management of abnormal uterine bleedingsince you have had the IUD removed. You can schedule this through [facility] or calling the office at [phone] to set up an appointment. 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 Feel free to schedule with any of us within the office as unfortunately my schedule is tight as I am part-time at [employer] and part-time covering the [facility] emergency department. Yours in women's health, Humberto Schultz M.D. documented in this encounterMemorial [facility]02-28-[facility]24 History of Present illness Narrative* Mauro Love PA - 12/09/2023 12:49 PM EST This note was created using E[employer]odatar[employer]. Subjective Leelee Zamora is a 28 year old female. HPI 28-year-old female presents for vaginal discharge. Patient states she was recently treated for UTI and afterwards felt like she got yeast infection. She did a virtual visit on Thursday and was prescribed Diflucan for suspected yeast infection. She states that she took the Diflucan. She states hersymptoms are improving, but she still has a little bit of vaginal itching and discharge. She would like tested for STDs and also yeast. She denies any fevers. No pelvic pain or abdominal pain. No concern for . LMP was 11/19/2023. No vomiting. No hematuria, dysuria. No other complaint. PAST MEDICAL HISTORY Diagnosis Date Acute deep vein thrombosis (DVT) of popliteal vein of right lower extremity (HCC) 02/2022 Allergic rhinitis, unspecified 12/16/2018 Bowel obstruction (HCC) 2022 Encounter for insertion of mirena IUD 12/24/2021 Ex-smoker 12/16/2018 Started at age 19 up to 1/2-1 PPD, quit 05/2018 SAMAN (generalized anxiety disorder) 12/16/2018 [facility]. History of chlamydia 16 YO History of gastroesophageal reflux (GERD) 12/16/2018 History of morbid obesity Psoriasis 12/16/2018 Vitamin D deficiency 12/16/2018 PAST SURGICAL HISTORY Procedure Laterality Date CYST EXCISION 2017 right leg D&C, DIAG AND/OR THERAPEUTIC 2019 EXTRACTION, ERUPTED TOOTH OR EXPOSED ROOT (ELEVATION AND/OR FORCEPS REMOVAL) 2012 LAPS SURG CHOLECYSTECTOMY W/CHOLANGIOGRAPHY 10/14/2023 Dr. Macdonald LOCAL REVISION OF ILESTOMY 02/24/2022 LYSIS OF ADHESIONS 10/14/2023 Dr. Macdonald PAST SURGICAL HISTORY OF multiplr vaginoplasty- RV fistual after FAVD & 4th degree REMOVAL GALLBLADDER 10/14/2023 ALLERGIES Tree Nuts and Morphine MEDICATIONS topiramate (TOPAMAX) 25 mg tablet Take 4 tablets by mouth once daily. dulaglutide (TRULICITY) 0.75 mg/0.5 mL pen injector Inject 0.75 mg subcutaneously one time a week. Phentermine HCl 37.5 mg capsule Take 1 capsule by mouth daily before breakfast for 90 days. FAMILY HISTORY Problem Relation Age of Onset Heart disease Mother arythmia Diabetes Father Hypertension Father Thyroid Cancer Paternal Aunt 52 Cervical Cancer Paternal Aunt Uterine Cancer Paternal Aunt Breast Cancer Paternal Aunt 20 - 29 Ovarian cancer Paternal Aunt 20 - 29 Thyroid Cancer Paternal Aunt 19 resolved Breast Cancer Paternal Aunt 20 - 29 Kidney Disease Maternal Grandmother other (lupus) Maternal Grandmother Stroke Maternal Grandmother Heart Attack Maternal Grandmother Blood Clots Maternal Grandmother Colon Cancer Paternal Grandmother late 50's Coronary Artery Disease Paternal Grandmother 40's Diabetes Paternal Grandmother Hypertension Paternal Grandmother Diabetes Paternal Grandfather Hypertension Paternal Grandfather Alzheimer's Disease No Family History Hyperlipidemia No Family History Thyroid No Family History Seizures No Family History Social History Tobacco Use Smoking status: Some Days Years: 4 Types: Cigarettes Smokeless tobacco: Never Tobacco comments: Stopped smoking cigarettes, just uses vape now Vaping Use Vaping Use: current everyday user Start date: 05/12/2023 Substances: Nicotine, Flavoring Devices: Disposable Substance Use Topics Alcohol use: Yes Alcohol/week: 1.0 standard drink of alcohol Types: 1 Cans of beer per week Comment: monthly Drug use: No Review of Systems Constitutional: Negative for chills and fever. HENT: Negative for congestion, ear pain and sore throat. Respiratory: Negative for cough and shortness of breath. Cardiovascular: Negative for chest pain. Gastrointestinal: Negative for diarrhea and vomiting. Genitourinary: Positive for vaginal discharge. Negative for frequency, menstrual problem, pelvic pain, vaginal bleeding and vaginal pain. Objective BP 128/82 Pulse 98 Temp 37.1 C (98.7 F) (Tympanic) Resp 18 Wt 96.8 kg (213 lb 6.4 oz) LMP11/19/2023 (Approximate) SpO2 99% BMI 39.02 kg/m Physical Exam Vitals and nursing note reviewed. Constitutional: General: She is not in acute distress. Appearance: Normal appearance. She is not toxic-appearing. Cardiovascular: Rate and Rhythm: Normal rate and regular rhythm. Pulmonary: Effort: Pulmonary effort is normal. Breath sounds: Normal breath sounds. Abdominal: Tenderness: There is no abdominal tenderness. There is no right CVA tenderness or left CVA tenderness. Genitourinary: Comments: Deferred by patient. Patient wants to self swab. Neurological: Mental Status: She is alert. Assessment and Plan ASSESSMENT/PLAN: 1. Vaginal discharge - ICD9: 623.5, ICD10: N89.8 - GONORRHEA/CHLAMYDIA NAAT - JOJO/TRICHOMONAS NAAT - BACTERIAL VAGINOSIS NAAT -Please treat if any results are positive. Diagnosis and treatment plan were discussed and questions were answered to the patient's satisfaction. Pt acknowledged understanding of concepts and follow up plan. Specific signs and symptoms that would indicate the need for higher level of care were discussed in detail warranting prompt ER evaluation. ODESSA Hubbard documented in this encounterMemorial [facility]24 Instructions* Patient Instructions* Elvia Yan APRN.[facility] - 12/06/2023 8:32 AM EST VAGINAL YEAST INFECTION INTRODUCTION Vaginal yeast infections are a common problem in women. Vaginal yeast infections are also called yeast vaginitis or vaginal candidiasis. The most common symptoms of a yeast infection are itching and irritation of the vulva and around the opening of the vagina. Yeast infections occur mainly in women who are menstruating (having monthly periods). They are lesscommon in postmenopausal women who do not take estrogen and in girls who have not yet started menstruating. VAGINAL YEAST INFECTION SYMPTOMS The most common symptoms of a yeast infection include: Itching or irritation of the vulva and around the vaginal opening. Pain with urination, vulvar soreness or irritation, Pain with intercourse Reddened and swollen vulvar and vaginal tissues. Some women have no abnormal vaginal discharge. Others have white clumpy (curd- like) or watery vaginal discharge. Symptoms of a yeast infection are similar to a number of other conditions, including bacterial vaginosis (a bacterial infection of the vagina), trichomoniasis (a sexually transmitted infection), and dermatitis (irritated skin). It is often not possible to know if itching is caused by yeast or other causes. VAGINAL YEAST INFECTION CAUSE The fungus that causes yeast infections (named Jojo) normally lives in the gastrointestinal tract and sometimes the vagina. Normally, Jojo causes no symptoms. However, when there are changes inthe normal mark of the gastrointestinal tract and vagina (caused by medicines, injury, or stress to the immune system), Jojo can overgrow and cause the symptoms described above. VAGINAL YEAST INFECTION RISK FACTORS In most women, there is no underlying health problem that leads to a yeast infection. There are several risk factors that may increase the chances of developing an infection, including: Antibiotics -- Most antibiotics kill a wide variety of bacteria, including those that normally livein the vagina. These bacteria protect the vagina from the overgrowth of yeast. Some women are proneto yeast infections while taking antibiotics. Hormonal contraceptives (eg, control pills, patch, and vaginal ring) -- The risk of yeast infections may be higher in women who use control methods containing estrogen. Contraceptive devices -- Vaginal sponges, diaphragms, and intrauterine devices (IUDs) may increase the risk of yeast infections. Spermicides do not usually cause yeast infections, although they can cause you to have vaginal or vulvar irritation. Weakened immune system -- Yeast infections are more common in people who have a weakened immune system due to HIV or use of certain medications (steroids, chemotherapy, post-organ transplant medications). -- Vaginal discharge becomes more noticeable during , although yeast infection is not always the cause. Diabetes -- Women with diabetes are at higher risk for yeast infections, especially if blood sugar levels are often higher than normal. Sexual activity -- Vaginal yeast infections are not a sexually transmitted infection. They can occur in women who have never been sexually active, but are more common in women who are sexually active. VAGINAL YEAST INFECTION DIAGNOSIS Yeast infections can be diagnosed with an exam. During the exam, your doctor or nurse will examine your vulva and vagina and swab the vagina to get a sample of discharge. Do not begin treatment at home before being examined. Self-diagnosis -- Women with vulvar itching or vaginal discharge often assume that their symptoms are caused by a yeast infection and then use a non- prescription treatment. However, in one study, only 11 percent of women accurately diagnosed their infection; women with a previous yeast infection were only slightly more accurate (35 percent correct). Diagnosing and treating yourself: Wastes money (on non-prescription treatment) Wastes time; you will not feel better until you use the right treatment Can make you more itchy and irritated VAGINAL YEAST INFECTION TREATMENT Treatment of a vaginal yeast infection may include a pill that you take by mouth or a vaginal treatment. Vaginal treatment -- Treatment for a vaginal yeast infection often includes a vaginal cream or tablet. You apply the cream or tablet inside the vagina at bedtime with an applicator. There are prescription and non-prescription treatments, so ask your doctor or nurse which to use. One, three, and seven-day treatments are equally effective. Oral treatment -- A prescription pill called fluconazole (Diflucan ) is another option for treatingyeast infections. Most women only need one dose, although women with more complicated infections (such as those with underlying medical problems, recurrent yeast infections, or severe signs and symptoms) may require a second dose 72 hours (3 days) after the first dose. Side effects of fluconazole are mild and infrequent, but may include stomach upset, headache, and rash. Fluconazole interacts with a number of medications; ask your doctor, nurse, or pharmacist if you have concerns. Fluconazole is not usually recommended during the first trimester of due to the potential risk of harm to the fetus. When will I feel better? -- Most yeast infections go away within a few days after starting treatment. However, you may continue to feel itchy and irritated, even after the infection is gone. If you do not get better within a few days after finishing treatment, call your doctor or nurse for advice. RECURRENT VAGINAL YEAST INFECTIONS Between 5 and 8 percent of women have recurrent yeast infections, defined as more than four infections per year. There is no evidence that eating yogurt or other products containing live Lactobacillus acidophilus, or applying these products to the vagina is of any benefit in women with recurrent vaginal yeast infections. Diagnosis -- As with initial yeast infections, it is important to correctly diagnose recurrent yeast infections. A woman who has frequent signs and symptoms of vulvar or vaginal irritation or itchingshould be seen by a healthcare provider to ensure that her symptoms are caused by yeast rather thanother common problems (eg, other vaginal infections, allergic reaction or sensitivity, eczema). As with initial infections, self-diagnosis is not accurate enough to recommend treatment. Treatment -- Women with recurrent infections are usually given a longer course of treatment for infections, between 7 and 14 days for a topical (cream or suppository) medication or fluconazole 150 mgby mouth with a second and third dose 3 and 6 days later. Preventive treatment may be recommended after the infection has resolved; this may include fluconazole (150 mg orally once per week) or clotrimazole (500 mg vaginal suppositories administered once per week). Treatment of a sexual partner -- Vaginal yeast infections are not a sexually transmitted infection,although the infection may rarely be passed from one partner to another. Most experts do not recommend treatment of a sexual partner. SUMMARY Vaginal yeast infections are a common problem in women. Itching is the most common symptom of a vaginal yeast infection. Women may also note pain with urination, soreness or irritation, pain with intercourse, or reddened and swollen vulvar and vaginal tissues. There is often little or no vaginal discharge; if present, discharge is typically white and clumpy (curd- like) or thin and watery. Symptoms of a yeast infection are similar to a number of other conditions. A physical examination is needed to determine the cause of symptoms. There are several risk factors that may increase the chances of developing a yeast infection, including use of antibiotics, control, diabetes, , and a weakened immune system (due to chemotherapy, HIV, or certain medications). To diagnose a vaginal yeast infection, a healthcare provider will do an examination. It is important to be seen when symptoms are bothersome and before any treatment is used. Do not begin treatment for a yeast infection before being examined. Treatment of vaginal yeast infection may include a vaginal cream or tablet or a pill taken by mouth. documented in this encounterMem[facility] History of Present illness Narrative* Elvia Yan APRN.CNP - 12/06/2023 8:21 AM EST Telemedicine Visit - Distance Health Virtual Visit Note Patient seen on [employer] Video Visit platform. Location of patient: [place] I have communicated my name and active licensure. The patient's identity and physical location wereverified at the time of this visit. Either the patient or their legal insurance sales representative has been informed of the risks and benefits of -- and alternatives to -- treatment through a remote evaluation andconsents to proceed with the evaluation remotely. History of Present Illness Leelee aZmora is a 28 year old year old female who presents with symptoms for vaginitis for 3 days. Symptoms are constant. Vaginitis ROS: Symptoms include: Positive for: discharge described as white, local irritation, and vulvar itching and Negative for: none, odor, burning, pain, lesions, bumps, warts, blisters, and tears Predisposing factors: Antibiotics Hx of previous vaginitis: rare Sexually active:yes, single partner, contraception - condoms. LMP: 11/19/23 PAST MEDICAL HISTORY Diagnosis Date Acute deep vein thrombosis (DVT) of popliteal vein of right lower extremity (HCC) 02/2022 Allergic rhinitis, unspecified 12/16/2018 Bowel obstruction (HCC) 2022 Encounter for insertion of mirena IUD 12/24/2021 Ex-smoker 12/16/2018 Started at age 19 up to 1/2-1 PPD, quit 05/2018 SAMAN (generalized anxiety disorder) 12/16/2018 [facility]. History of chlamydia 16 YO History of gastroesophageal reflux (GERD) 12/16/2018 History of morbid obesity Psoriasis 12/16/2018 Vitamin D deficiency 12/16/2018 PAST SURGICAL HISTORY Procedure Laterality Date CYST EXCISION 2016 right leg D&C, DIAG AND/OR THERAPEUTIC 2019 EXTRACTION, ERUPTED TOOTH OR EXPOSED ROOT (ELEVATION AND/OR FORCEPS REMOVAL) 2012 LAPS SURG CHOLECYSTECTOMY W/CHOLANGIOGRAPHY 10/14/2023 Dr. Macdonald LOCAL REVISION OF ILESTOMY 02/24/2022 LYSIS OF ADHESIONS 10/14/2023 Dr. Macdonald PAST SURGICAL HISTORY OF multiplr vaginoplasty- RV fistual after FAVD & 4th degree REMOVAL GALLBLADDER 10/14/2023 FAMILY HISTORY Problem Relation Age of Onset Heart disease Mother arythmia Diabetes Father Hypertension Father Thyroid Cancer Paternal Aunt 52 Cervical Cancer Paternal Aunt Uterine Cancer Paternal Aunt Breast Cancer Paternal Aunt 20 - 29 Ovarian cancer Paternal Aunt 20 - 29 Thyroid Cancer Paternal Aunt 19 resolved Breast Cancer Paternal Aunt 20 - 29 Kidney Disease Maternal Grandmother other (lupus) Maternal Grandmother Stroke Maternal Grandmother Heart Attack Maternal Grandmother Blood Clots Maternal Grandmother Colon Cancer Paternal Grandmother late 50's Coronary Artery Disease Paternal Grandmother 40's Diabetes Paternal Grandmother Hypertension Paternal Grandmother Diabetes Paternal Grandfather Hypertension Paternal Grandfather Alzheimer's Disease No Family History Hyperlipidemia No Family History Thyroid No Family History Seizures No Family History Social History Tobacco Use Smoking status: Some Days Years: 4 Types: Cigarettes Smokeless tobacco: Never Tobacco comments: Stopped smoking cigarettes, just uses vape now Vaping Use Vaping Use: current everyday user Start date: 05/12/2023 Substances: Nicotine, Flavoring Devices: Disposable Substance Use Topics Alcohol use: Yes Alcohol/week: 1.0 standard drink of alcohol Types: 1 Cans of beer per week Comment: monthly Drug use: No Current Outpatient Medications Medication Sig topiramate (TOPAMAX) 25 mg tablet Take 4 tablets by mouth once daily. dulaglutide (TRULICITY) 0.75 mg/0.5 mL pen injector Inject 0.75 mg subcutaneously one time a week. Phentermine HCl 37.5 mg capsule Take 1 capsule by mouth daily before breakfast for 90 days. No current facility-administered medications for this visit. ALLERGIES Allergen Reactions Tree Nuts Rash Morphine Other: See Comments Tightness in chest Video Exam (Examination performed via Video enabled technology) General appearance: 28 year old yo female in NAD; not ill or toxic appearing Abdomen: non-tender by self palpation CVA Tenderness: non-tender bilaterally by self palpation ASSESSMENT/PLAN: 1. Vaginal discharge - ICD9: 623.5, ICD10: N89.8 - Diflucan as prescribed - Daily probiotic - Follow up in person if symptoms worsen or persist - FLUCONAZOLE 150 MG TABLET Elvia Yan, ASAEL.HOME VISITOR [employer] START If you let us know who your primary care provider is, we will send them a notification of today's visit through our electronic medical records system. Since not all providers have access to our notifications, we strongly encourage you to share the following record of today's visit with your primarycare provider at your next visit. This will help in providing you the best care. If you do not have an established Primary Care physician and would like to continue care with a [facility] Primary [facility] physician, please ask your provider to place a Establish PrimaryCare order. Use engageSimply to manage your care, wherever you are, 04/05, on your mobile device or computer. [employer] connects you to [facility] so you can access all your health information in one place and also schedule and request virtual appointments with primary care providers. documented in this encounterMemorial Health [facility]02-16-[facility]24 History of Present illness Narrative* Abigail Ramírez RT(Kelsea) - 11/27/2023 1:30 PM EST Radiology Service Progress Note PATIENT NAME: Leelee Zamora DATE OF SERVICE: November 27, 2023 TIME: 2:24 PM PATIENT IDENTITY VERIFICATION COMPLETED USING TWO (2) IDENTIFIERS: Name and Date of confirmedby patient verbally. FALL SCREENING: Has the patient had 2 falls in the last year or 1 fall with injury or currently using an Ambulatory Assistive Device (Walker, Cane, Wheelchair, Crutches, etc.)? No PATIENT GENDER DATA: Female. status: : No status: NO. PATIENT RELEVANT IMPLANT DATA REVIEWED: Not Applicable PATIENT PRESENTS WITH AN IMPLANTABLE OR ATTACHED PROCUREMENT PROFESSIONAL: No RADIOLOGY DEPARTMENT: Mammography PERIPHERAL IV DATA: Not applicable SIGNED BY: RT Xiomara(Kelsea) November 27, 2023 2:24 PM documented in this encounterMemorial Health [facility]02[facility] History of Present illness Narrative* Buck Szymanski APRN.CNP - 11/27/2023 1:02 PM EST Images from the original note were not included. MEDICAL BREAST PATIENT NAME: Leelee Zamora November 27, 2023 REFERRAL: She is referred by Cooper Jordan PA-C for an opinion regarding nipple discharge . My final recommendations will be communicated back to the requesting physician by the way of the shared medical record, fax, or via US Mail. HISTORY of PRESENT ILLNESS: Leelee Zamora is a 28 year old year old premenopausal woman who presents to the [facility] [place] today for evaluation of nipple discharge. She reports for the past couple years she has noticed milky discharge from RIGHT nipple more than left. Discharge is expressed when she feels congestion in nipple and sometimes seem spontaneous. She last expressed nipple discharge 3 weeks ago. It was milky and from multiple ducts. Virtual appointment completed today with Edie was ordered to further assess nipple discharge She is on weight loss medication phentamine and Trulicity with excellent results The patient denies any breast masses, pain or skin changes. Has Patient had Genetic Testing? No Her vitamin D level was No results found for: VITD25. She takes no supplements. BMD: No PERSONAL BREAST HISTORY: Past breast history (prior to this encounter) is as follows: Breast biopsy: No Breast cysts: No Breast surgery: No Breast cancer: No CANCER SURVEILLANCE: Mammograms: No Breast MRI: No Colonoscopy: No RISK FACTORS FOR BREAST CANCER: Age at the onset of menses: 11 years of age. P: 1 Age at the of first child: 26 years of age. She breast fed for 1 years total. Age at menopause: The patient is not menopausal at this time. Post-menopausal hormone therapy: No She has an intact uterus and ovaries She uses condoms for control. History of Mantle Radiation prior to the age of 30: No Obesity: Yes, 38.03 There is no height or weight on file to calculate BMI. Current Weight: 208 lbs Mammographic density: Unknown Personal History of Benign Atypical Breast Biopsy: No Alcohol use: Rare PAST MEDICAL HISTORY: PAST MEDICAL HISTORY Diagnosis Date Acute deep vein thrombosis (DVT) of popliteal vein of right lower extremity (HCC) 02/2022 Allergic rhinitis, unspecified 12/16/2018 Bowel obstruction (HCC) 2022 Encounter for insertion of mirena IUD 12/24/2021 Ex-smoker 12/16/2018 Started at age 19 up to 1/2-1 PPD, quit 05/2018 SAMAN (generalized anxiety disorder) 12/16/2018 Seeing Klaus Gonzalez at the [facility] center. History of chlamydia 16 YO History of gastroesophageal reflux (GERD) 12/16/2018 History of morbid obesity Psoriasis 12/16/2018 Vitamin D deficiency 12/16/2018 Patient specifically denies history of: PE, migraine headaches WITH AURA, migraine headaches without aura, abnormal uterine bleeding, abnormal uterine biopsies, osteopenia, and osteoporosis. +DVT PAST SURGICAL HISTORY: PAST SURGICAL HISTORY Procedure Laterality Date CYST EXCISION 2016 right leg D&C, DIAG AND/OR THERAPEUTIC 2020 EXTRACTION, ERUPTED TOOTH OR EXPOSED ROOT (ELEVATION AND/OR FORCEPS REMOVAL) 2012 LAPS SURG CHOLECYSTECTOMY W/CHOLANGIOGRAPHY 10/14/2023 Dr. Macdonald LOCAL REVISION OF ILESTOMY 02/24/2022 LYSIS OF ADHESIONS 10/14/2023 Dr. Macdonald PAST SURGICAL HISTORY OF multiplr vaginoplasty- RV fistual after FAVD & 4th degree SOCIAL HISTORY: Social History Tobacco Use Smoking status: Some Days Years: 4 Types: Cigarettes Smokeless tobacco: Never Tobacco comments: Stopped smoking cigarettes, just uses vape now Vaping Use Vaping Use: current everyday user Start date: 05/12/2023 Substances: Nicotine, Flavoring Devices: Disposable Substance Use Topics Alcohol use: Yes Alcohol/week: 1.0 standard drink of alcohol Types: 1 Cans of beer per week Comment: monthly Drug use: No Caffeine intake: 2 cups / day Exercise: Most days <20 minutes FAMILY HISTORY: Family history of breast cancer: PA dx 20's-alive and well, PA dx 20's alive and well Family history of ovarian cancer: PA dx 20's-alive and well Number of sisters: 3 Number of maternal aunts: 1 Number of paternal aunts: 2 Ashkenazi Ancestry: yes 3% Other Cancer: PA dx thyroid cancer in 20's, second PA dx thyroid cancer and PGM dx colon cancer There is no family history of prostate, uterine, pancreatic, gastric, brain, or renal cell cancer. There is no family history of melanoma, sarcoma or leukemia. Osteoporosis: None Stroke: MGM Blood Clot: PA Heart attack: MGM Thyroid Nodule or Goiter: PA Autism: None FAMILY HISTORY Problem Relation Age of Onset Heart disease Mother arythmia Diabetes Father Hypertension Father Kidney Disease Maternal Grandmother other (lupus) Maternal Grandmother Colon Cancer Paternal Grandmother late 50's Coronary Artery Disease Paternal Grandmother 40's Diabetes Paternal Grandmother Hypertension Paternal Grandmother Diabetes Paternal Grandfather Hypertension Paternal Grandfather Thyroid Cancer Paternal Aunt 52 Cervical Cancer Paternal Aunt Uterine Cancer Paternal Aunt Thyroid Cancer Paternal Aunt 19 resolved Alzheimer's Disease No Family History Breast Cancer No Family History Ovarian cancer No Family History Hyperlipidemia No Family History Thyroid No Family History Seizures No Family History Stroke No Family History MEDICATIONS: topiramate (TOPAMAX) 25 mg tablet Take 4 tablets by mouth once daily. dulaglutide (TRULICITY) 0.75 mg/0.5 mL pen injector Inject 0.75 mg subcutaneously one time a week. Phentermine HCl 37.5 mg capsule Take 1 capsule by mouth daily before breakfast for 90 days. ALLERGIES: ALLERGIES Allergen Reactions Tree Nuts Rash Morphine Other: See Comments Tightness in chest REVIEW OF SYSTEMS: The patient specifically denies unintentional weight loss, insomnia, hot flashes, night sweats, abnormal swelling in the arms or legs, chest pain, shortness of breath, persistant cough, heartburn, urinary incontinence, vaginal dryness, decreased libido, unusual bony pains or severe headaches. PHYSICAL EXAM: LMP 10/19/2023 (Approximate) General: well-nourished, healthy, white, female, alert and oriented x 3, calm Skin: warm, dry, skin color, texture, turgor normal Head/Eyes: normocephalic, atraumatic, and anicteric Lymph nodes- The supraclavicular, axillary, and cervical regions are free of significant lymphadenopathy. Right breast-The skin, nipple and areola appear normal. There is no skin dimpling with movement of the pectoralis. There is no nipple retraction. No discharge can be elicited with vigorous stimulation. The parenchya is moderately fibrocystic. There is no dominant masses in the breast. The axillary tail is normal. There is no tenderness noted with palpation. Left breast- The skin, nipple, and areola appear normal. There is no skin dimpling with movement ofthe pectoralis. There is no nipple retraction. No discharge can be elicited with vigorous stimulation. The parenchyma is moderately fibrocystic. There is no dominant masses in the breast. The axillary tail is normal. There is no tenderness noted with palpation. IMAGING: Bilateral ultrasound was performed today in the breast center and were negative for malignancy. Assessment IMPRESSION/PLAN: Leelee Zamora is a 28 year old year old female with bilateral fibrocystic change, increased risk for breast cancer due to FH, nipple discharge, and excess weight There is no evidence of malignancy. The patient was reassured as to the benign nature of her clinical and sonographic findings. Her data were entered into the Tyrer-Cuzick model for Risk Assessment. Her 10 year projected risk of developing invasive breast cancer is 2.6% and her lifetime risk of breast cancer is estimated to be 28.3%. Per NCCN guided lines I will initiate screening MRI of breast annually with clinical exam. Once this family history is completely validated I will initiate annual mammogram at age 30. I will review this recommendation at follow up appt We discussed that nipple discharge is a common complaint and that at least 80% of women will experience nipple discharge at least once during their reproductive years. Her discharge is consistent with the physiologic type - bilateral, from multiple duct orifices, and white, green or yellow in color. She is advised to stop expressing the discharge and to return should the discharge become pathologic - spontaneous, unilateral, from a single duct orifice and bloody or serous (clear). Cooper has ordered Prolactin, TSH and additional BW to evaluate discharge. Genetics referral made: Yes: Reason: I reviewed genetic testing for her PA's.s She is in contact with her and will discuss Chemoprevention discussion: Will be deferred until genetics issues are settled. The patient is advised to exercise regularly, achieve/maintain ideal body weight, and to limit alcohol consumption to less than 7 drinks weekly for breast cancer risk reduction and overall health. She will return in 6 months for follow-up evaluation. She will call me in the interim should she have any questions or concerns. My final recommendations will be communicated back to the requesting physician by way of shared medical record or letter via US mail. I spent a total of 45 minutes minutes on the date of the service which included preparing to see the patient, [id number] patient care, completing clinical documentation, obtaining and/or reviewing separately obtained history, performing a medically appropriate examination, counseling and educating the patient/family/caregiver, ordering medications, tests, or procedures, and communicating results to the patient/family/caregiver. Buck Szymanski APRN.HOME VISITOR [employer] Medical Breast Specialist November 27, 2023 CC: Cooper Jordan [address] [facility] [id number] [address] [place] [address] documented in this encounterMemorial [facility] Instructions* Patient Instructions* Quinton Caldera Ma - 11/27/2023 1:02 PM EST General Breast Health Recommendations A healthy body helps promote healthy breasts. If you smoke, please consider a smoking cessation program. If you do not exercise, please consider starting an exercise program if you are able to, even if it is just walking in your neighborhood. Research shows that obesity, especially post-menopausal obesity, is a risk factor for breast cancer. Obtaining calcium in your diet or taking a calcium supplement that contains vitamin D is good for your bones. There is evolving evidence that Vitamin D supplementation may also help to decrease breast cancer risk. If you are post-menopausal and are bothered by hot flashes and still have a uterus, combined estrogen-progesterone preparations can increase your risk of breast cancer if taken for longer than five years. Alcohol is also an under-recognized risk factor. Every drink you have daily increases your breast cancer risk by 10%. Mammograms save lives. Have an annual mammogram annually beginning at age 40. Continue annual mammograms as long as you remain in good health. Breast self-exam, performed on day 7 of your menstrual cycle, can also be very helpful. Know your breasts and report changes to your health care provider or breast specialist. Clinical breast exams by your primary care provider or breast specialist are recommended annually every 1-3 years for women over the age of 20 and annually after the age of 40. Increased frequency ofthe clinical exam may be recommended for women at increased risk of breast cancer. Risk factors for breast cancer: Being a woman Family history of breast cancer Early menarche (onset of menses) prior to age 13 Nulliparity (never had children) First child after age 30 Late menopause (stopping of periods) after age 55 History of breast biopsy that showed atypical cells (ADH, ALH, LCIS, FEA) Presence of a genetic mutation (BRCA1, BRCA2, PTEN, P53, CDH1) History of chest wall irradiation (such as with Hodgkin's Lymphoma) prior to age 30 Personal history of breast cancer Post-menopausal Obesity Combined hormone therapy (estrogen and progesterone) for greater than 5 years Alcohol consumption of greater than 7 alcohol-containing drinks per week Breast density If you have a family history of breast or ovarian cancer, review this with your primary care provider or breast specialist to see if a referral for genetic counseling is recommended. 5-10% of breast cancers and up to 15% of ovarian cancers are linked to a genetic mutation. Signs of hereditary breast cancer syndrome include breast cancer that occurs under the age of 50, ovarian cancer at any age, male breast cancer, multiple family members affected with breast cancer, and a history of Ashkenazi [place] ancestry. Breast pain is very common and usually is not a sign of cancer, but should be evaluated by a breastspecialist. For comfort, simply reducing caffeine (coffee, tea, chocolate, energy drinks, sodas) inyour diet can provide relief. A properly fitted bra can also be helpful in reducing breast pain. Ifthose two measures do not provide relief, taking Evening Witt Oil 1000mg capsules twice a day for a short period of time (three to four months) may be helpful. Many women wonder about their breast density. Dense breast tissue is, in and of itself, a relatively common condition which could hide abnormalities in a screening mammogram. This information is not provided to cause undue concern; rather, it is to raise your awareness and promote discussion with your health care provider regarding the presence of dense breast tissue in addition to other risk factors. If you would like to compliment one of our caregivers you encountered today, you may do so at [email or web address]. Thank you ! documented in this encounterMemorial [facility]02-16-[facility]24 History of Present illness Narrative* Cooper Jordan PA-C - 11/27/2023 12:16 PM EST OGI VIRTUAL VISIT Virtual limitations reviewed with patient, as well as possible need to travel to have diagnostic services. Patient voiced understanding. Patient seen on [employer] Video Visit platform. Location of patient: [place] I have communicated my name and active licensure. The patient's identity and physical location wereverified at the time of this visit. Either the patient or their legal insurance sales representative has been informed of the risks and benefits of -- and alternatives to -- treatment through a remote evaluation andconsents to proceed with the evaluation remotely. Leelee Zamora is a 28 year old who presents with a complaint of hormone issue . IUD removed 09/11/2023 Hx D&C; reports hx endometrial hyperplasia (no records for review); IUD placed, removed 09/2023 Since IUD removal, increased facial hair, cyclic acne Contraception: condoms History of menstraul dysfunction? PERIOD REGULARITY: regular q 28-30 days 10/19 and 11/19 FLOW CHARACTERISTICS: heavy flow and length of flow 5 days w/ occasional clots DYSMENORRHEA: first 1-2 days of flow CYCLIC SYMPTOMS: back pain History of obesity? Yes, BMI 38 Hirsutism present? Yes, chin/upper lip Acne? Cyclic jaw line History of acanthosis nigricans? No History of infertility: No OB History T1 L1 SAB0 IAB0 Ectopic0 Multiple0 Live Births1 PAST MEDICAL HISTORY Diagnosis Date Acute deep vein thrombosis (DVT) of popliteal vein of right lower extremity (HCC) 02/2022 Allergic rhinitis, unspecified 12/16/2018 Bowel obstruction (HCC) 2022 Encounter for insertion of mirena IUD 12/24/2021 Ex-smoker 12/16/2018 Started at age 19 up to 1/2-1 PPD, quit 05/2018 SAMAN (generalized anxiety disorder) 12/16/2018 [facility] Klaus [facility]. History of chlamydia 16 YO History of gastroesophageal reflux (GERD) 12/16/2018 History of morbid obesity Psoriasis 12/16/2018 Vitamin D deficiency 12/16/2018 PAST SURGICAL HISTORY Procedure Laterality Date CYST EXCISION 2016 right leg D&C, DIAG AND/OR THERAPEUTIC 2019 EXTRACTION, ERUPTED TOOTH OR EXPOSED ROOT (ELEVATION AND/OR FORCEPS REMOVAL) 2012 LAPS SURG CHOLECYSTECTOMY W/CHOLANGIOGRAPHY 10/14/2023 Dr. Macdonald LOCAL REVISION OF ILESTOMY 02/24/2022 LYSIS OF ADHESIONS 10/14/2023 Dr. Macdonald PAST SURGICAL HISTORY OF multiplr vaginoplasty- RV fistual after FAVD & 4th degree ALLERGIES Allergen Reactions Tree Nuts Rash Morphine Other: See Comments Tightness in chest FAMILY HISTORY Problem Relation Age of Onset Heart disease Mother arythmia Diabetes Father Hypertension Father Kidney Disease Maternal Grandmother other (lupus) Maternal Grandmother Colon Cancer Paternal Grandmother late 50's Coronary Artery Disease Paternal Grandmother 40's Diabetes Paternal Grandmother Hypertension Paternal Grandmother Diabetes Paternal Grandfather Hypertension Paternal Grandfather Thyroid Cancer Paternal Aunt 52 Cervical Cancer Paternal Aunt Uterine Cancer Paternal Aunt Thyroid Cancer Paternal Aunt 19 resolved Alzheimer's Disease No Family History Breast Cancer No Family History Ovarian cancer No Family History Hyperlipidemia No Family History Thyroid No Family History Seizures No Family History Stroke No Family History Social History Tobacco Use Smoking status: Some Days Years: 4 Types: Cigarettes Smokeless tobacco: Never Tobacco comments: Stopped smoking cigarettes, just uses vape now Vaping Use Vaping Use: current everyday user Start date: 05/12/2023 Substances: Nicotine, Flavoring Devices: Disposable Substance Use Topics Alcohol use: Yes Alcohol/week: 1.0 standard drink of alcohol Types: 1 Cans of beer per week Comment: monthly Drug use: No Current Outpatient Medications on File Prior to Visit Medication Sig topiramate (TOPAMAX) 25 mg tablet Take 4 tablets by mouth once daily. dulaglutide (TRULICITY) 0.75 mg/0.5 mL pen injector Inject 0.75 mg subcutaneously one time a week. Phentermine HCl 37.5 mg capsule Take 1 capsule by mouth daily before breakfast for 90 days. No current facility-administered medications on file prior to visit. Review of Systems BOWEL: No blood in stool, pain with BM, tarry stool, persistent diarrhea or constipation BLADDER: No burning with urination, blood in urine or incontinence and No change in vaginal discharge, burning, dryness or itching PHYSICAL EXAM: Vitals: LMP 11/19/2023 Gen: well appearing woman in NAD Skin: +jawline acne Neuro: A&O x3 ASSESMENT: 28 year old woman with clinical hyperandrogenism, BMI 38 and regular menstrual cycles, possible polycystic ovarian syndrome. PLAN: - Pt desires: information/counseling and reassurance - Plan: - PELVIC SONOGRAM and labs for further evaluation - Treatment: await results of evaluation - Declines prescriptive contraception, elects continued condom usage - aware to f/u w/ OB provider with any future consideration , hx DVT - PNV start Follow up to discuss results Medical Decision Making: Problems: Low: Acute, uncomplicated illness or injury Data: Unique source(s) for external note(s) reviewed: 1 Unique test(s) ordered: 3+ Risk: Low: Low risk from testing/treatment Moderate: Drug management Medical Decision Making Level: 4 - Moderate - Red flags discussed for in person care and follow up - All questions answered We strongly encourage you to share the following record of today's visit with your primary care provider. This will help in providing you the best care. Cooper Jordan PA-C documented in this encounterMemorial [facility]02-13-2024 Discharge summary Author Tanner Ryan [facility] November 24, 2023 2:34pm Note Date/Time November 24, 2023 12:11pm [facility] Medical Records Department [address] [place] [address] Emergency Department Summary 11/24/23 MR#: [id number] Acct: [id number] Name: LEELEE ZAMORA Rep #:[id number] : 1995 28 From: Tanner Ryan MD PCP: Dr. Alfredo Barroso MD Status :REG ER Location: ED HPI HPI - GI History of Present Illness Chief Complaint: Abd Pain Narrative Narrative: 28-year-old female past medical history of previous ileostomy with reversal, partial colectomy secondary to C. difficile, cholecystectomy presents with rightlower quadrant abdominal pain and dysuria that she has had for the last 3 days. She states that her symptoms began a few days ago. She is having pain at the end of urination where she gets sharp stabbing pain mainly in the right side of her abdomen. She thought maybe she had a UTI or kidney stone which she has had in the past. She states she went to urgent care yesterday evening, and had tenderness in the right lower quadrant and was told to come to the emergency department but she elected not to come. She has had continued pain with urinating/after urination, and right lower quadrant abdominal pain. She denies other symptoms. No exacerbating or alleviating factors. Last menstrual period recently finished and started 5 days ago. [facility] Medical History ADHD (attention deficit hyperactivity disorder) Anxiety Chronic pain Post traumatic stress disorder (PTSD) SBO (small bowel obstruction) Home Medications phentermine 37.5 mg tablet 37.5 mg PO DAILY 04/30/23 [History Last Taken 05/17/23] nitrofurantoin monohydrate/macrocrystals 100 mg capsule 100 mg PO Q12H 05/18/23 [History Last Taken 05/16/23] vit no.95-ferrous fumarate 28 mg-folic acid 800 mcg tablet ( Multivitamins) 1 tab PO DAILY 05/18/23 [History Last Taken 05/17/23] nitrofurantoin macrocrystal 100 mg capsule 100 mg PO BID 7 days #14 caps 11/24/23 [Rx Last Taken Unknown] Allergy/AdvReac Type Severity Reaction Status Date / Time cat dander Allergy Hives Verified 11/24/23 11:03 house dust Allergy Hives Verified 11/24/23 11:03 peanut Allergy Swelling Verified 11/24/23 11:03 cranberry AdvReac Rash Verified 11/24/23 11:03 mold AdvReac Other Verified 11/24/23 11:03 morphine AdvReac Chest Verified 11/24/23 11:03 tightness Family History Aunt Cancer maternal aunt - uterine/cervical ca Surgical History Dehiscence of perineal wound Fourth degree perineal laceration History of gynecologic surgery Social History Smoking Status: Current every day smoker tobacco type: cigarettes and e- cigarettes ROS ROS ED ROS Narrative Constitutional: No fever, no chills. HEENT: No sore throat. No neck pain. No loss of vision. No rhinorrhea. Cardiovascular: No chest pain. No palpitations. No pedal edema. Respiratory: No cough, no shortness of breath. Abdominal: Positive right lower quadrant abdominal pain. No nausea. No vomiting. Genitourinary: Positive dysuria. No hematuria. Musculoskeletal: No myalgias. No arthralgias. Neurologic: No headaches. No dizziness. No lightheadedness. Skin: No rash. No change in color. Psychiatric: No depression. No anxiety. EXAM Physical Exam Narrative Exam Narrative: Afebrile. Vital signs noted. HEENT: Normocephalic. Atraumatic. PERRL, EOMI. Neck soft and supple. No pointtenderness or step off. Cardiovascular: Regular rate and rhythm. No murmurs, rubs, or gallops appreciated. Respiratory: No tachypnea. Lungs clear to auscultation bilaterally. Gastrointestinal: Abdomen soft, mild tenderness in right lower quadrant with normoactive bowel sounds. No rebound or guarding. Well-healed surgical scars on abdomen. Neurological: Awake. Alert. Nonfocal, nonlateralizing. Skin: No rash. Normal color. No pallor. Musculoskeletal: No pedal edema. Full range of motion extremities. Const Vital Signs: 11/24/23 11:03 Temperature 97.2 F L Temperature Source Temporal Pulse Rate 80 Respiratory Rate 16 Blood Pressure 118/74 Blood Pressure Mean 88 Pulse Ox 100 Oxygen Delivery Method Room Air MDM MDM MDM Narrative Medical decision making narrative: In the differential diagnosis is ureterolithiasis versus appendicitis versus bowel obstruction versus nonspecific abdominal pain versus pyelonephritis. RN ordered UA does show positive nitrates in the urine with 5-10 RBCs and greater than 100 WBCs. Her urine will be sent for culture and I will treat her with antibiotics, but given her right lower quadrant abdominal pain I do feel CT imaging is warranted. I will obtain a CBC and a BMP as well as a serum test prior to imaging. I reviewed her laboratory work and she has a normal white count of 6.4, hemoglobin normal at 13.7, hematocrit 41.9, platelet count normal at 277. BMP shows normal sodium of 140 with potassium normal at 4.5, chloride slightly elevated at 109 which I think is nonspecific, glucose appropriately elevated at 88 with a normal anion gap of 5. BUN is low at 6 with creatinine 0.73 and normal. Serum is negative. Urinalysis was obtained and reviewed which is consistent with UTI with positive nitrites, and greater than 100 WBCs. This was sent for culture. She does have 5- [address] of the abdomen pelvis was reviewed/radiology report reviewed and there is no evidence of an acute appendicitis or bowel obstruction. At this point in time, I discussed antibiotics with her. She is hesitant to receive Bactrim because ofher history of C. difficile, and she states that she usually receives strong antibiotic that she only has to take for few days. While she was told that anyantibiotic can cause C. difficile, she is more comfortable with receiving her first dose of Macrobid here in the emergency department and prescription writtenfor the next week. I feel she can be discharged safely home with follow-up to her primary care provider. Return instructions to the emergency department werereviewed. Disposition is discharged home in stable condition. History & Record Review Discussion w/independent historian: Patient Additional record(s) reviewed:: Prior ED visit and Prior labs Lab Data Attestation: I reviewed the patient's lab results. Labs: Laboratory Results - last 24 hr 11/24/23 11/24/23 11:20 12:40 WBC 6.4 RBC 4.67 Hgb 13.7 Hct 41.9 MCV 89.7 MCH 29.3 MCHC 32.7 RDW Std Deviation 43.0 RDW Coeff of Wiliam 13.2 Plt Count 277 MPV 8.1 Immature Gran % (Auto) 0.300 Neut % (Auto) 66.3 Lymph % (Auto) 27.4 Glacier % (Auto) 5.2 Eos % (Auto) 0.5 Baso % (Auto) 0.3 Absolute Neuts (auto) 4.2 Absolute Lymphs (auto) 1.74 Nucleated RBC % 0 Sodium 140 Potassium 4.5 Chloride 109 H Carbon Dioxide 26.0 Anion Gap 5 BUN 6 L Creatinine 0.73 Estim Creat Clear Calc 122.47 Est GFR (MDRD) Af Amer 122 Est GFR (MDRD) Non-Af 101 BUN/Creatinine Ratio 8.3 L Glucose 88 Calcium 9.3 Serum , Qual NEGATIVE Urine Color Yellow Urine Clarity Cloudy Urine pH 6.5 Ur Specific [place] 1.015 Urine Protein 30 H Urine Glucose (UA) Normal Urine Ketones Negative Urine Occult Blood 150 H Urine Nitrite Positive H Urine Bilirubin Negative Urine Urobilinogen Normal Ur Leukocyte Esterase 500 H Urine RBC 5-10 SEEN Urine WBC >100 SEEN Ur Squamous Epith Cells 0-5 SEEN Urine Bacteria 2+ Urine Mucus 0 SEEN Radiography Diagnostic Testing: Clinical Impression(s) from Imaging Studies Abdomen/Pelvis CT 11/24/23 12:06 IMPRESSION: Stable 1.8 cm hemangioma in the left lobe liver. Status post cholecystectomy. No acute abnormality is seen. Electronically Signed: Yaya Soto MD at 14:21 EST , Discharge Plan Triage Chief Complaint: Abd Pain ED Provider: Tanner Ryan Dx/Rx/DC Orders Clinical Impression: Abdominal pain, RLQ, UTI (urinary tract infection) Instructions: ED Abdominal Pain Unkn Cause Fem, ED Cystitis Female Adult Prescriptions: New nitrofurantoin macrocrystal 100 mg capsule 100 mg PO BID 7 Days Qty: 14 0RF Rx Instructions: must administer with a meal/food No Action phentermine 37.5 mg tablet 37.5 mg PO DAILY Patient Comments: TAKE 1 TABLET BY MOUTH ONCE DAILY nitrofurantoin monohyd/m-cryst 100 mg capsule 100 mg PO Q12H Patient Comments: TAKE 1 CAPSULE BY MOUTH 2 TIMES A DAY WITH MEALS FOR 7 DAYS PNV cmb#95-ferrous fumarate-FA [ Multivitamins] 28 mg iron- 800 mcg tablet 1 tab PO DAILY Primary Care Provider: Alfredo Barroso Referrals: Alfredo Barroso MD [Primary Care Provider] - 3-5 Days if not improving Activity Restrictions/Additional Instructions: Antibiotics as directed. Return with fever, new or worsening symptoms. Disposition Disposition: Home, Self Care What to do if you have Problems For any increased pain, shortness of breath, bleeding, nausea or vomiting, chestpain, or any unexpected problems, contact your Primary Care Provider. Call [facility] ([phone]) or report to the closest Emergency Room. Call 911 if necessary. 11/24/23 1434 <Electronically signed by Tanner Ryan MD> Cosigner Signature (if applicable): CC: Dr. Alfredo Barroso MD ~ Signed [facility] Work Phone: [phone] Miscellaneous Notes* Telephone Encounter - Tomasa Willett RN - 11/24/2023 8:36 AM EST Difficult patient to assess and she states she has multiple issues. Pt states she has had 3 episodes of 10/10 pain which began during the night. Pt [facility] and was told to go to the ER then to rule out appendicitis. Symptoms have worsened. Pt is instructed to go to the ERnow. Pt verbalizes understanding and states she will go. Reason for Disposition [1] SEVERE pain (e.g., excruciating) AND [2] present > 1 hour Answer Assessment - Initial Assessment Questions 1. LOCATION: right lower quadrant pain 2. RADIATION: denies 3. ONSET: 3 days ago 4. SUDDEN: sudden 5. PATTERN sore all the time, worsens with urination. RLQ is dull ache all the time, worsens after she finishes urinating. Pain most times is 5/10 and goes to a 10/10 for about an hour afterwards. States pain is getting a lot worse. States holding my urine because I know it is going to hurt so bad States the 10 pain began in the middle of the night (Note: Comes and goes means the pain is intermittent. It goes away completely between bouts.) - If constant: Is it getting better, staying the same, or getting worse? (Note: Constant means the pain never goes away completely; most serious pain is constant and gets worse.) 6. SEVERITY: See above - MILD (1-3): Doesn't interfere with normal activities, abdomen soft and not tender to touch. - MODERATE (4-7): Interferes with normal activities or awakens from sleep, abdomen tender to touch. - SEVERE (8-10): Excruciating pain, doubled over, unable to do any normal activities. 7. RECURRENT SYMPTOM: denies 8. CAUSE: Believes she may have trich 9. RELIEVING/AGGRAVATING FACTORS: Relieving-not urinating, laying not doing anything, curled up in a ball, Urinating and eating makes it worse 10. OTHER SYMPTOMS: Has back pain all the time-but states her back pain is more tender on the left side. Had constipation over the weekend which turned into one episode of diarrhea for about an hour straight. Feels like maybe she has a fever-is chilling off an on. Denies pain with urination. The pain starts when she finishes go. Denies any nausea or vomiting. 11. : Denies chance of . LMP was 11/19 Protocols used: Abdominal Pain - [id number] [facility] History of Present illness Narrative* Alecia Dumont APRN.HOME VISITOR [employer] - 11/23/2023 6:53 PM EST Patient came in with complaints of scratching feeling when she urinates. Patient says she is havingsome lower back pain. Upon assessing her abdomen patient is extremely tender over the right lower quadrant. Due to this patient is being sent to the ER for full evaluation. Patient was okay with thiscare plan and wants to take herself. documented [facility] History of Present illness Narrative* Armando Aponte APRN.YADI - 11/23/2023 5:28 PM EST Patient with some urethral pain and sweet smelling urine. She has had UTI's in the past and this is not similar. No Hx of kidney stones but wondering if it could be that. Explained that with VV wasare just talking through and given lack of clarity of her symptoms, feel like collecting objective data can help to guide possible etiology. As a result, referred her for in person evaluation at /. documented in [facility] Miscellaneous Notes* Telephone Encounter - Zehra Hernandez RN - 11/18/2023 4:41 PM EST Patient calls to report elevated BP, headache, eye pain, fatigue, shaking, heart racing, weak/unsteady. Nurse triage completed. Protocol recommends ED now. Patient agreeable. Ex spouse to transports.Care advice reviewed. Patient verbalizes understanding. Reason for Disposition [1] Systolic BP >= 160 OR Diastolic >= 100 AND [2] cardiac (e.g., breathing difficulty, chestpain) or neurologic symptoms (e.g., new-onset blurred or double vision, unsteady gait) Answer Assessment - Initial Assessment Questions 1. BLOOD PRESSURE: Patient calls to report BP of 156/109, recheck 150/105 HR 120. Fatigue, Shaking,Severe headache, feels like heart is racing, up walking has to sit down because feels so weak/unsteady. 2. ONSET: Right before call and during. 3. HOW: [employer] BP cuff 4. HISTORY: No 5. MEDICINES: No BP medication. 6. OTHER SYMPTOMS: Eye pain but not blurry, weakness, severe headache. No chest pain or difficulty breathing. 7. : Mirena Protocols used: Blood Pressure - [id number] documented in this encounterMem[facility] Instructions* Patient Instructions* Fabian Brasher MD - 11/18/2023 12:47 PM EST -- continue phentermine 1/2 tablets -- increase topiramate to 3 tablets , then 4 tablets in 7-10days if no effct DULAGLUTIDE (Trulicity) - The medication comes in a once weekly, single-dose pen. - The most common adverse reactions reported in ?5% of Trulicity-treated patients in trials were nausea, diarrhea, vomiting, abdominal pain, decreased appetite, dyspepsia, and fatigue.The side effects are usually transient in nature. Please reach out for assistance in managing these symptoms if they persist and are bothersome. Side effects typically occur 1-3 days after the injection, when starting the medication, and with dose increases. With this in mind consider timing the injection like on a Thursday night, so if you have side effects they will occur on the weekend versus while you are at work. -- We should have further discussions about taking this medication if you have a history of a pancreatitis, a disease called MEN2, or you or a family member has had medullary thyroid cancer. -- please inform me immediately if you are or plan to become . -- Although rare, there is an increased risk for inflammation of the pancreas (pancreatitis), gallbladder problems (including gallstones), low blood sugar (typically when combined with a medication called a sulfonurea), acute kidney injury (bwith nausea/vomiting and resulting dehydration), diabeticretinopathy (damage to the eye's retina), increased heart rate, and suicidal behavior or thinking. -- Please reach out if in-person pen training is needed. -- Keep medication refrigerated. It is good for 2 weeks out of the refrigerator as long as it had not been in high temperatures or direct sunlight. Instructions for Use Trulicity Patient Education How to use the pen: What is Trulicity & Easy To Use Pen Trulicity (dulaglutide) Full medication guide: Trulicity What Is Trulicity? Trulicity is a brand-name prescription drug that belongs to the drug class glucagon-like peptide-1 (GLP-1) agonists. Trulicity is available as a liquid solution self-injectable medication. It is a pre-filled, disposable, single-use injection pen. Can Trulicity Be Used for Weight Loss? While Trulicity is not a weight loss drug, Similar drugs in the same class of medication called GLP1's have recently been approved for weight loss by the FDA. These drugs are named Wegovy and Saxenda. The medication will be delivered as a once-weekly shot, in combination with diet and exercise. How Does Trulicity for Weight Loss Work? Trulicity is in a drug class called GLP-1 agonists that are used to control blood sugar, and can betaken to assist in weight loss. This drug works by - Slowing down how fast your stomach empties food - Blocking hormones that cause the liver to release sugar - Together, these combined actions cause the feeling of hunger to decrease, which leads to eating less, and finally, weight loss. How Long Does It Take for Trulicity to Work for Weight Loss? Results vary from person to person with Ozempic. Some people may have a quick initial weight drop; for others, it may take more time. Trulicity has been shown to help people lose weight in a safe, long-term, and healthy way. A [facility] doctor will help you with dosages of Trulicity for weight lossand might recommend slowly increasing dosage over time to maximize weight loss. The speed at which you lose weight is largely influenced by the amount of lifestyle changes you areable to make: there is no magic weight loss drug on the market. It s important to remember that weight loss takes time, and you ll have the best results if you use Trulicity in combination with exercise and a healthy diet. Trulicity for Weight Loss Dulaglutide: Patient drug information Access [employer] Online for additional drug information, tools, and databases. Copyright 6171-5703 [employer]. All rights reserved. (For additional information see Dulaglutide: Drug information) You must carefully read the Consumer Information Use and Disclaimer below in order to understand and correctly use this information. Brand Names: [place] Trulicity Brand Names: Sadia Trulicity Warning Drugs like this one have been shown to cause thyroid cancer in some animals. It is not known if this drug may cause thyroid cancer in humans. Call your doctor right away if you have a neck mass, trouble breathing, trouble swallowing, or hoarseness that will not go away. Do not use this drug if you have a health problem called Multiple Endocrine Neoplasia syndrome type2 (MEN 2), or if you or a family member have had thyroid cancer. What is this drug used for? It is used to lower blood sugar in patients with high blood sugar (diabetes). It is used to lower the chance of heart attack, stroke, and in some people. What do I need to tell my doctor BEFORE I take this drug? If you are allergic to this drug; any part of this drug; or any other drugs, foods, or substances. Tell your doctor about the allergy and what signs you had. If you have any of these health problems: Type 1 diabetes or stomach or bowel problems. If you have ever had pancreatitis. If the patient is a child. Do not give this drug to a child. This is not a list of all drugs or health problems that interact with this drug. Tell your doctor and pharmacist about all of your drugs (prescription or OTC, natural products, vitamins) and health problems. You must check to make sure that it is safe for you to take this drug with all of your drugs and health problems. Do not start, stop, or change the dose of any drug withoutchecking with your doctor. What are some things I need to know or do while I take this drug? Tell all of your health care providers that you take this drug. This includes your doctors, nurses,pharmacists, and dentists. Follow the diet and workout plan that your doctor told you about. Wear disease medical alert ID (identification). Check your blood sugar as you have been told by your doctor. Have blood work checked as you have been told by the doctor. Talk with the doctor. Do not drive if your blood sugar has been low. There is a greater chance of you having a crash. It may be harder to control blood sugar during times of stress such as fever, infection, injury, orsurgery. A change in physical activity, exercise, or diet may also affect blood sugar. Kidney problems have happened with drugs like this one. Sometimes, kidney problems have needed to be treated in the hospital. Dialysis has also been needed. Talk with your doctor. Tell your doctor if you have upset stomach, throwing up, diarrhea, or too much sweating. Losing toomuch fluid may raise your chance of kidney problems. If you are dehydrated, talk with your doctor. This drug may prevent other drugs taken by mouth from getting into the body. If you take other drugs by mouth, you may need to take them at some other time than this drug. Talk with your doctor. Do not share pen or cartridge devices with another person even if the needle has been changed. Sharing these devices may pass infections from one person to another. This includes infections you may not know you have. Tell your doctor if you are , plan on getting , or are breast- feeding. You will need to talk about the benefits and risks to you and the baby. What are some side effects that I need to call my doctor about right away? WARNING/CAUTION: Even though it may be rare, some people may have very bad and sometimes deadly side effects when taking a drug. Tell your doctor or get medical help right away if you have any of thefollowing signs or symptoms that may be related to a very bad side effect: Signs of an allergic reaction, like rash; hives; itching; red, swollen, blistered, or peeling skin with or without fever; wheezing; tightness in the chest or throat; trouble breathing, swallowing, ortalking; unusual hoarseness; or swelling of the mouth, face, lips, tongue, or throat. Signs of a pancreas problem (pancreatitis) like very bad stomach pain, very bad back pain, or very bad upset stomach or throwing up. Signs of kidney problems like unable to pass urine, change in how much urine is passed, blood in the urine, or a big weight gain. Change in eyesight. Low blood sugar can happen. The chance may be raised when this drug is used with other drugs for diabetes. Signs may be dizziness, headache, feeling sleepy or weak, shaking, fast heartbeat, confusion, hunger, or sweating. Call your doctor right away if you have any of these signs. Follow what you have been told to do for low blood sugar. This may include taking glucose tablets, liquid glucose, or some fruit juices. What are some other side effects of this drug? All drugs may cause side effects. However, many people have no side effects or only have minor sideeffects. Call your doctor or get medical help if any of these side effects or any other side effects bother you or do not go away: Not hungry. Feeling tired or weak. It is common to have diarrhea, upset stomach, throwing up, or stomach pain with this drug. Call your doctor if any of these side effects get very bad, bother you, or do not go away. These are not all of the side effects that may occur. If you have questions about side effects, call your doctor. Call your doctor for medical advice about side effects. You may report side effects to your national health agency. How is this drug best taken? Use this drug as ordered by your doctor. Read all information given to you. Follow all instructionsclosely. It is given as a shot into the fatty part of the skin on the top of the thigh, belly area, or upperarm. If you will be giving yourself the shot, your doctor or nurse will teach you how to give the shot. Be sure you know how to use this drug. Read the instructions for use that come with this drug. If there are no instructions for use or you have any questions about how to use this drug, talk with thedoctor or pharmacist. Take with or without food. Drink lots of noncaffeine liquids unless told to drink less liquid by your doctor. Take the same day each week. Do not use if the solution is cloudy, leaking, or has particles. Do not use if solution changes color. Wash your hands before and after use. Move site where you give the shot each time. If you are also using insulin, you may inject this drug and the insulin in the same area of the body but not right next to each other. Do not mix this drug in the same syringe with insulin. Keep taking this drug as you have been told by your doctor or other health care provider, even if you feel well. Throw away needles in a needle/sharp disposal box. Do not reuse needles or other items. When the box is full, follow all local rules for getting rid of it. Talk with a doctor or pharmacist if you have any questions. What do I do if I miss a dose? Take a missed dose as soon as you think about it. If it is less than 3 days (72 hours) until your next dose, skip the missed dose. Take your next dose on your normal day. Do not take 2 doses at the same time or extra doses. How do I store and/or throw out this drug? Store in a refrigerator. Do not freeze. Do not use if it has been frozen. If needed, you may store at room temperature for up to 14 days. Write down the date you take this drug out of the refrigerator. If stored at room temperature and not used within 14 days, throw this drug away. Store in the original container to protect from light. Protect from heat. Keep all drugs in a safe place. Keep all drugs out of the reach of children and pets. Throw away unused or drugs. Do not flush down a toilet or pour down a drain unless you are told to do so. Check with your pharmacist if you have questions about the best way to throw out drugs. There may be drug take-back programs in your area. General drug facts If your symptoms or health problems do not get better or if they become worse, call your doctor. Do not share your drugs with others and do not take anyone else's drugs. Some drugs may have another patient information leaflet. If you have any questions about this drug,please talk with your doctor, nurse, pharmacist, or other health care provider. If you think there has been an overdose, call your poison control center or get medical care right away. Be ready to tell or show what was taken, how much, and when it happened. Last Reviewed [id number] Consumer Information Use and Disclaimer This generalized information is a limited summary of diagnosis, treatment, and/or medication information. It is not meant to be comprehensive and should be used as a tool to help the user understand and/or assess potential diagnostic and treatment options. It does NOT include all information about conditions, treatments, medications, side effects, or risks that may apply to a specific patient. Itis not intended to be medical advice or a substitute for the medical advice, diagnosis, or treatment of a health care provider based on the health care provider's examination and assessment of a patient's specific and unique circumstances. Patients must speak with a health care provider for complete information about their health, medical questions, and treatment options, including any risks or benefits regarding use of medications. This information does not endorse any treatments or medications as safe, effective, or approved for treating a specific patient. [employer] and its affiliatesdisclaim any warranty or liability relating to this information or the use thereof. The use of thisinformation is governed by the Terms of Use, available at [email or web address]/[email or web address]/lexicomp/[email or web address]/[place] documented in this encounterMem[facility] History of Present illness Narrative* Fabian Brasher MD - 11/18/2023 11:47 AM EST Images from the original note were not included. BMI Obesity Medicine FollowUp Note November 18, 2023 Patient Summary: Leelee Zamora is 28 year old Female who presents for follow-up evaluation of her obesity and related complications to the [facility] Bariatric and Metabolic [facility]. In our previous visits we have outlined an individualized lifestyle intervention including a personalized nutrition recommendations and physical activity optimization. Interval History: She specifies the following items as new or significant updates since the last appointment: Last seen on 08/17/23 Reports no significant weight change since last visit; her wt fluctuates between 200 and 210 lb. She thinks her current medication is not helping anymore. She would like to consider other medication.Her had her gallbladder removed on 10/14/23. She tolerated well. 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 She lives by herself. She thinks she could workout better. Returns after 3 months months Reports weight is stable since the last visit. Obesity Medications: Phentermine , 10/29/22, 255lbs - appetite reduction, taking 1/2 dose - decreased binge eating - overall she thinks it helps sometimes and it doesn't other time - no SE Topiramate. Start Date: 08/17/23 Weight: 205 Effects Reduced hunger Reports appetite is variable; does crave a lot of protein . Tirzepatide (Mounjaro) 07/01/22, 271lb - reduced appetite. Doesn't know if helpful for cravings - no SE , sulfa burps on occasion, mainly with Micronesian food - reports injection site reactions with 10mg, no change with 15mg - OFF since April 2023, 185-187lbs. Not available in the pharmacy plus insurance is not covering forit. Diet: Reports quality of diet as some days healthy and other days unhealthy. Current nutrition plan includes none Currently f/b None Exercise: Change in physical activity: No; tries to workout at home. Barriers to regular exercise? None Work-related activity:Active. ?Sleep: Change in sleep No: Reports quality of sleep is good and sleeps approximately 6 to 9 hours a night ??Stress: none Review of Systems: The physical systems reviewed reveal no pathological symptoms that are pertinent to this visit History reviewed in Epic ALLERGIES Allergen Reactions Tree Nuts Rash Morphine Other: See Comments Tightness in chest Current Outpatient Medications Medication Sig topiramate (TOPAMAX) 25 mg tablet Take 4 tablets by mouth once daily. dulaglutide (TRULICITY) 0.75 mg/0.5 mL pen injector Inject 0.75 mg subcutaneously one time a week. Phentermine HCl 37.5 mg capsule Take 1 capsule by mouth daily before breakfast for 90 days. No current facility-administered medications for this visit. PAST MEDICAL HISTORY Diagnosis Date Acute deep vein thrombosis (DVT) of popliteal vein of right lower extremity (HCC) 02/2022 Allergic rhinitis, unspecified 12/16/2018 Bowel obstruction (HCC) 2022 Encounter for insertion of mirena IUD 12/24/2021 Ex-smoker 12/16/2018 Started at age 19 up to 1/2-1 PPD, quit 05/2018 SAMAN (generalized anxiety disorder) 12/16/2018 [facility]. History of chlamydia 16 YO History of gastroesophageal reflux (GERD) 12/16/2018 History of morbid obesity Psoriasis 12/16/2018 Vitamin D deficiency 12/16/2018 PAST SURGICAL HISTORY Procedure Laterality Date CYST EXCISION 2016 right leg D&C, DIAG AND/OR THERAPEUTIC 2019 EXTRACTION, ERUPTED TOOTH OR EXPOSED ROOT (ELEVATION AND/OR FORCEPS REMOVAL) 2012 LAPS SURG CHOLECYSTECTOMY W/CHOLANGIOGRAPHY 10/14/2023 Dr. Macdonald LOCAL REVISION OF ILESTOMY 02/24/2022 LYSIS OF ADHESIONS 10/14/2023 Dr. Macdonald PAST SURGICAL HISTORY OF multiplr vaginoplasty- RV fistual after FAVD & 4th degree Physical Exam: BP 131/71 Pulse 83 Ht 157.5 cm (5' 2.01) Wt 95.9 kg (211 lb 8 oz) LMP 10/19/2023 (Approximate) BMI 38.67 kg/m NAD Results: reviewed labs with the patient. Waist 35.5'' Impression: Leelee Zamora is a 28 year old year old female with Class II obesity and the above obesity relatedcomplications. Body mass index is 38.67 kg/m . Currently taking Phentermine and Topiramate., responding poorly. Lifestyle unchanged Currently motivated Initial Weight decreased, 80lbs (30%BW) since 08/2022 with Pascale ( supply/PA issues) and phentermine; Weight gained from bronson weight (192lbs) likely 2/2 DC annabella Faulkner. She has stable wtaround 200 and 210 lbs on Topiramate and Phentermine. Plan: -- Continue towards improving life-style modification; add strength exercise -- Continue Phentermine, Increase Topiramate, and Start Trulicity 0.75 mg SQ, if no change with theincreased Topiramate 100 mg -- return to clinic/virtually in 3 months Carlos Trinh MD Attending Note: I have seen and evaluated the patient and discussed the case with the resident physician. I agree with the assessment and plan as documented in the resident s note. Responding to phentermine, but less effect from addition of topiramate. Could be dose effect. No physical activity, concerned about muscle mass loss. Was responding very well to pascale Brasher MD MSc FTOS I spent a total of 30 minutes on the date of the service which included preparing to see the patient, [id number] patient care, completing clinical documentation, performing a medically appropriate examination, counseling and educating the patient/family/caregiver, and ordering medications, tests,or procedures. documented in this encounterMem[facility] NoteHNO ID: [id number] Author: Christiana Philip AA Service: ? Author Type: Auto Parts Clerk Type: Anesthesia Procedure Notes Filed: 10/14/2023 10:00 AM Note Text: ANESTHESIOLOGY PROCEDURE NOTE Airway General Information Procedure Start Time/Medication Administration: 10/14/2023 9:51 AM Patient location during procedure: OR Timeout Performed Pre-procedure: timeout performed Consent Obtained: Yes Patient identity confirmed: arm band and patient Staffing CAA: Christiana Philip AA Performed by: JAVED Indications and Patient Condition Indications for airway management: anesthesia Preoxygenated: yes anesthesia circuit Patient position: sniffing Method: asleep Final Airway Details Final airway type: endotracheal airway Final Endotracheal Airway: ETT Cuffed: yes Successful intubation technique: direct laryngoscopy Endotracheal tube insertion site: oral Blade: Rodas Blade size: #2 ETT size (mm): 7.0 Measured from: teeth Measurement (cm): 21 Placement verified by: chest auscultation and capnometry Cormack-Lehane Classification: grade I - full view of glottis Number of attempts at approach: 1 SIGNATURE: HONEY Ribeiro PATIENT NAME: Leelee Zamora DATE: October 14, 2023 TIME: 10:00 AM CSN: [id number] NoteHNO ID: [id number] Author: Sandhya Guillory RN Service: Nursing Author Type: Registered Nurse Type: Nursing Progress Note Filed: 10/14/2023 9:11 AM Note Text: Other: pt ready for OR, call light in reach, mom called to bedside.[facility] [id number] History of Present illness Narrative* Cooper Gastelum APRN.HOME VISITOR [facility] [employer] - 09/17/2023 3:28 PM EST Chief Complaint Patient presents with: Abdominal Pain: RUQ pain HPI Leelee Zamora is a 28 year old female who presents here today for Above Complaints.. Patient presents for RUQ abdominal pain follow up. Patient reports continued pain and nausea especially after eating. Patient MRI shows hemangioma and cholelithiasis. Past medical history, appointments, medications, allergies reviewed. Previous Medical History PAST MEDICAL HISTORY Diagnosis Date Acute deep vein thrombosis (DVT) of popliteal vein of right lower extremity (HCC) 02/2022 Allergic rhinitis, unspecified 12/16/2018 Bowel obstruction (HCC) 2022 Encounter for insertion of mirena IUD 12/24/2021 Ex-smoker 12/16/2018 Started at age 19 up to 1/2-1 PPD, quit 05/2018 SAMAN (generalized anxiety disorder) 12/16/2018 [facility]. History of chlamydia 16 YO History of gastroesophageal reflux (GERD) 12/16/2018 History of morbid obesity Psoriasis 12/16/2018 Vitamin D deficiency 12/16/2018 Previous Surgical History PAST SURGICAL HISTORY Procedure Laterality Date CYST EXCISION 2016 right leg D&C, DIAG AND/OR THERAPEUTIC 2020 EXTRACTION, ERUPTED TOOTH OR EXPOSED ROOT (ELEVATION AND/OR FORCEPS REMOVAL) 2012 LOCAL REVISION OF ILESTOMY 02/24/2022 PAST SURGICAL HISTORY OF multiplr vaginoplasty- RV fistual after FAVD & 4th degree Family History FAMILY HISTORY Problem Relation Age of Onset Diabetes Father Hypertension Father Heart disease Mother arythmia Kidney Disease Maternal Grandmother other (lupus) Maternal Grandmother Diabetes Paternal Grandfather Hypertension Paternal Grandfather Colon Cancer Paternal Grandmother late 50's Coronary Artery Disease Paternal Grandmother 40's Diabetes Paternal Grandmother Hypertension Paternal Grandmother Cervical Cancer Paternal Aunt Uterine Cancer Paternal Aunt Thyroid Cancer Paternal Aunt Alzheimer's Disease No Family History Breast Cancer No Family History Ovarian cancer No Family History Hyperlipidemia No Family History Thyroid No Family History Seizures No Family History Stroke No Family History Patient Allergies ALLERGIES Allergen Reactions Tree Nuts Rash Morphine Other: See Comments Tightness in chest Current Medications Current Outpatient Medications on File Prior to Visit Medication Sig topiramate (TOPAMAX) 25 mg tablet Take 1 tablet by mouth two times a day. levonorgestrel (MIRENA INTRAUTERINE) by INTRAUTERINE route. No current facility-administered medications on file prior to visit. Social History Social History Tobacco Use Smoking status: Former Years: 4 Types: Cigarettes Smokeless tobacco: Never Tobacco comments: 5 to 6 cigarettes Vaping Use Vaping Use: current everyday user Substances: Nicotine, Flavoring Devices: Disposable Substance Use Topics Alcohol use: No Drug use: No Review of Symptoms REVIEW OF SYSTEMS SEE HPI EXAM: BP 126/70 Pulse 104 Resp 14 Wt 96.2 kg (212 lb) LMP 08/19/2023 (Approximate) BMI 38.78 kg/m General Appearance: Well appearing, alert, in no acute distress, well-hydrated, well nourished.. Abdomen: Positive findings: tenderness moderate RUQ. Health Maintenance List Hepatitis B Vaccine(1 of 3 - 3-dose series) Never done Covid-19 Vaccine(1) Never done Depression Assessment Never done Influenza Vaccine(1) Never done Pap Testing due on 03/12/2026 DTaP,Tdap,Td Vaccine(3 - Td or Tdap) due on 04/23/2031 Hepatitis C Screening Completed HIV Screening Completed HPV Vaccine Aged Out ASSESSMENT/PLAN: 1. Calculus of gallbladder without cholecystitis without obstruction - ICD9: 574.20, ICD10: K80.20 (primary diagnosis) - CONSULT TO GENERAL SURGERY 2. RUQ pain - ICD9: 789.01, ICD10: R10.11 - CONSULT TO GENERAL SURGERY Cooper Gastelum APRN.HOME VISITOR [employer] documented in this encounterMemorial [facility]12-07-2023 Miscellaneous Notes* Telephone Encounter - Virgilio Rooney LPN - 09/17/2023 2:01 PM EST Pt notified of same. Pt verbalizes understanding. Pt was scheduled with Cooper machado at 3:20. Virgilio Rooney LPN * Telephone Encounter - Roverto Diane MD - 09/17/2023 1:43 PM EST She will need appt to be seen and evaluated. This MRI was order off the fact that her colorectal surgeon had ordered a CT of her abdomen and had shown a lesion in the liver and instead of her following up on it she advised Leelee to discuss with me. We never discussed any symptoms. * Telephone Encounter - Virgilio Rooney LPN - 09/17/2023 1:04 PM EST Reviewed results below with pt. Pt reports that she is still getting stabbing pain on right side just under her ribs. Questions if it could be from her gallbladder? Virgilio Rooney LPN Let patient know the MRI of her liver shows a benign dilated vein. We do not know what causes thesebut then do not cause any issues and do not need monitored documented in this encounterMemorial [facility]12-06-2023 History of Present illness Narrative* Yolanda Overton LPN - 09/16/2023 10:58 AM EST Scan on 09/15/2023 8:46 AM by Provider, JOSE Alvarez: MRI documented in this encounterMemorial [facility]12-04-2023 History of Present illness Narrative* Princess Julian Tech - 09/14/2023 3:00 PM EST Radiology Service Progress Note DATE OF SERVICE: September 14, 2023 TIME: 3:47 PM PATIENT IDENTITY VERIFICATION COMPLETED USING TWO (2) STANDARD IDENTIFIERS: Name and Date of confirmed by patient verbally. FALL SCREENING: Has the patient had 2 falls in the last year or 1 fall with injury or currently using an Ambulatory Assistive Device (Walker, Cane, Wheelchair, Crutches, etc.)? No PATIENT GENDER DATA: Female. status: : No status: NO. PATIENT RELEVANT IMPLANT DATA REVIEWED: Yes ALLERGIES: Reviewed and unchanged CONTRAST ALLERGY: NO. EXAM: MRI - CONTRAST TYPE: GROUP II PERIPHERAL IV DATA: Ambulatory: A peripheral IV was started in the Right antecubital site with a Angio cath: 22 gauge. RADIOLOGY DEPARTMENT: MR; Exam(s) Completed: Body: Liver (routine) SIGNATURE: Lindsey Weston PATIENT NAME: Leelee Zamora DATE: September 14, 2023 TIME: 3:47 PM documented in this encounterMemorial [facility]11-17-2023 Miscellaneous Notes* Telephone Encounter - Virgilio Roonye LPN - 08/28/2023 9:21 AM EST Please see pt's message. Virgilio Rooney LPN documented in this encounterCleveland [id number] Miscellaneous Notes* Telephone Encounter - Kiki Dumont MA - 08/24/2023 3:23 PM EST Patient notified and voiced understanding. Please assist patient with scheduling. Kiki Dumont MA * Telephone Encounter - Roverto Diane MD - 08/24/2023 12:39 PM EST Please let the patient know I was just informed of a My Chart message you received from Dr. Shah your colorectal surgeon on 08/22/[address] she had ordered and was completed on 08/05/2023 that there was a lesion noted in the liver that needs additional f/u. I have placed an order for the MRI of the liver. documented in this encounterMemorial [facility]11-10-2023 NoteHNO ID: [id number] Author: Suad Hernandez TECHNOLOGIST Service: ? Author Type: Technologist Type: Progress Notes Filed: 08/21/2023 3:47 PM Note Text: Radiology Service Progress Note PATIENT NAME: Leelee Zamora DATE OF SERVICE: August 21, 2023 TIME: 3:47 PM PATIENT IDENTITY VERIFICATION COMPLETED USING TWO (2) IDENTIFIERS: Name and Date of confirmed by patient verbally. FALL SCREENING: Has the patient had 2 falls in the last year or 1 fall with injury or currently using an Ambulatory Assistive Device (Walker, Cane, Wheelchair, Crutches, etc.)? No PATIENT GENDER DATA: Female. status: : No status: NO. PATIENT RELEVANT IMPLANT DATA REVIEWED: Yes RADIOLOGY DEPARTMENT: Ultrasound PERIPHERAL IV DATA: Not applicable SIGNED BY: TECHNOLOGIST Hamida August 21, 2023 3:47 [facility]11-10-2023 History of Present illness Narrative* Suad Hernandez TECHNOLOGIST - 08/21/2023 3:00 PM EST Radiology Service Progress Note PATIENT NAME: Leelee Zamora DATE OF SERVICE: August 21, 2023 TIME: 3:47 PM PATIENT IDENTITY VERIFICATION COMPLETED USING TWO (2) IDENTIFIERS: Name and Date of confirmedby patient verbally. FALL SCREENING: Has the patient had 2 falls in the last year or 1 fall with injury or currently using an Ambulatory Assistive Device (Walker, Cane, Wheelchair, Crutches, etc.)? No PATIENT GENDER DATA: Female. status: : No status: NO. PATIENT RELEVANT IMPLANT DATA REVIEWED: Yes RADIOLOGY DEPARTMENT: Ultrasound PERIPHERAL IV DATA: Not applicable SIGNED BY: Suad Hernandez TECHNOLOGIST August 21, 2023 3:47 PM documented in this encounterMemorial [facility]11-06-2023 Instructions* Patient Instructions* Fabian Brasher MD - 08/17/2023 2:28 PM EST Images from the original note were not included. -- continue phentermine at current dose, 1/2 tab -- add topiramate as discussed. Take one tablet (25mg) every night and increase to 2 tablets at night (50MG) after 1 week if there is no change in your appetite, cravings or weight. The prescription will say to take twice per day, but we could try to take both tablets at night, if we think it may help with your sleep, or in the morning with the phentermine. -- We may increase the dose to 3 tablets (75mg) a couple weeks later if there is no change with 2 tablets (50mg) and continue to increase the medication in this way to 4 tablets after 2 wks (usually no more than 150mg). But it is best to contact me after 1 month to discuss continued increases of the medication. -- Please see the handout to review the potential side effects and to explain this further -- IN GENERAL - suggestions based on important of our sleep cycle called circadian rhythm and its influence on our gut microbiota and overall health tragetory 1) EAT MOST OF YOUR FOOD IN AM AND EARLY PM 2) NO EATING AT NIGHT 3) EXERCISE DURING DAY 4) BE CONSISTENT WITH MEAL STRUCTURE ie Meals at same time during the day. -- keep record of your food intake - it is easier for us to understand your eating habits and food preferences, looking into the amounts of protein, carbs, and fat in your diet. Good examples of appsto track calories are MyFITNESSPAL, LOSE IT. Some patient have found FOODUCATE to help with decisions around food, however choose apps that best suits you. -- for exercise, you should shoot for a goal of >150 min per week initially. Depending at what level you are starting, that may seem like an unachievable task. However, the best plan is to just begin to walk or bike or do another activity that you like and track your steps per day. You do not need to pay attention to the time, but you do need to try to increase your exercise every 3 weeks. Other strength exercises, using light weights or training bands may also be useful, especially when combined with regular aerobic exercise. Studies have shown that >200min per week is best to maintainweight loss, so that would be the overall end goal. - One option we discussed is to REPLACE one of your meals with a liquid meal or frozen meal. This is easy to start and may help with your weight. 1. Liquid meal replacement (Boost, Ensure, Premier Protein, Slim Fast) 2. Frozen meal (Healthy Choice, Lean Cuisine - sodium under 650mg, can always add veggies to the meal) 3. Powdered meal replacement (I like a plant based meal replacement called Accurate Group Nutrition - can mix w froz berries and almond milk) Frozen Meals aim for 200-400 calories, 15-30 grams protein, 5+ grams fiber, < 50 grams Carbohydrate, <600 mg sodium Frozen Meals Calories Protein (grams) Carbs Frontera Bowls 240-320 - 33-47 Healthy Choice/Power Bowls 180-350 - 20-50 Estefania's (V, GF) 280-400 - 20-50 Smart Made/Smart Ones 150-320 14- 16-50 Lean Cuisine 250-410 - 15-50 Eating Well 240-360 - 25-40 LUVO planted 260-430 07-31 16-55 Other Frozen meals: Kashi, Sweet Earth, Relations Specialist Home's Reduced Guilt, EVOLValdo's Delights, Dr. Ferrara's Protein Drinks Calories Protein (grams) Sugars (grams) EAS Advant Edge Carb Control 110 17 1 Isopure Clear Zero Carb 160 40 0 Muscle Milk light 100-160 15-20 0-1 Agillic Core Power 170 26 5 Orgain Protein Shake* 150 26 2 Premier Protein 160 30 1 Evolve (Vegan)* 160 20 5 Other Protein Shakes: Pure Protein, Ensure High Protein; *Offers plant based, dairy free option Protein Powders Calories (per scoop) Protein (g) Sugars (g) Isopure Zero Carb & Unflavored 105 25 0 Egg And Spice Mixer Whey Protein 100 18 3 Optimum Nutrition 100% whey 120-130 24 1-2 EAS 100% Whey or Soy 120 23 1 Genisoy Protein powder* 110 25 0 Quest 100 23 1 Vidal One Protein powder* 130 25 1 Orgain Protein Powder* 150-160 21 0-1 *Offers plant based, dairy free option Protein Bars Calories Protein (g) Sugars (g) Quest (GF) 190 20 0-1 Power Crunch 140-240 13-20 0-5 NuGo Slim (v) 180 17 1 Simply protein 150 15 1 Orgain Bar 140 10 4 Pure Protein 200 20 2 Think Thin (GF) 230 20 0-1 Preston Bakery Paleo (GF) 180-190 20 2 Oh Yeah (one) (GF) 180-200 20 1 Oatmega 190 14 5 Other Protein bars: RX bar, Orgain, Fit Mirela, Protein One, Alfred protein bar; *GF= Gluten-Free; V= vegan Topiramate (toe pyre a mate) What are the common names? Topamax Why is this medication prescribed? Topiramate is an anti-epileptic medications which has been approved by the FDA for patients 10 years of age or older for treatment of seizures. However, topiramate also has other uses such as the treatment of migraines. It also causes decrease in appetite and weight loss. The mechanism of weight loss is thought to be through inhibition of mitochondrial enzymes involved in energy expenditure and metabolism. Topiramate may work by helping you feel less hungry, less driven to eat, more satisfied with less food. What special precautions should I follow? Before having topiramate prescribed, tell your doctor and pharmacist: If you have allergies to any component of topiramate If you are , plan to become , are breast-feeding, or if you become while taking topiramate What are the warnings and precautions for this medication? Immediately discontinue the medicine and seek medical help if you have severe cognitive/neuropsychiatric adverse symptoms or eye symptoms. Cognitive/neuropsychiatric adverse events: symptoms may include confusion, psychomotor slowing, difficulty with concentration/attention, difficulty with memory, speech or language problems, particularily word-finding difficulties, somnolence or fatigue Acute myopia and secondary angle closure glaucoma, usually within 1 month of starting treatment: symptoms may include blurred vision, redness and/or pain in the eye Oligohydrosis (decrease sweating) and hyperthermia (elevation in body temperature) Increase in suicidal behavior or ideation Metabolic acidosis, non-gap hyperchloremic (decreased serum bicarbonate below normal levels) resulting in hyperventilation or fatigue Kidney stones Paresthesias (numbness or tingling in hands or feet) Ataxia Dizziness Increase in urination frequency Drug interactions. Use of monamine oxidase inhibitors (MAOI s), valproic acid, Caution use with dehydration or diarrheal illness, hepatic or renal impairment In case of emergency/overdose In case of overdose, call your local poison control center at or call local emergency services at [phone]. What other information should I know? Keep all appointments with your doctor and the laboratory. Do not let anyone else take your medication. Topiramate use needs to be monitored closely. Prescriptions may be refilled only a limited number of times. Keep a written list of all of your prescription and nonprescription (stci-rgq-ijcmyfm) medicines, in addition to vitamins, minerals, or other dietary supplements. How should I monitor while on this medication? Your doctor will check your baseline kidney function and electrolytes prior to starting this medication, then periodically. Continue to improve your dietary and physical activity habits as the combination works best while on this medication. Start out by taking the medication at bedtime as it can cause fatigue and sleepiness. Be sure to eat regular meals. Less hunger does not make it appropriate to skip meals. Make sure to have an eye exam, including the pressure in your eyes (intra-ocular pressure), once a year. What should I do if I forget a dose? Skip the missed dose and continue your regular dosing schedule the next day. Do not take a double dose to make up for a missed one. Sources Pubmed Health: http://www.ncbi.nlm.nih.gov/pubmedhealth/NXH3529335/ Drugs.com http://www.drugs.com/pro/topiramate.html documented in this encounterMemorial [facility]11-06-2023 History of Present illness Narrative* Fabian Brasher MD - 08/17/2023 2:04 PM EST Images from the original note were not included. BMI Obesity Medicine Note Distance Health Visit August 17, 2023 I have communicated my name and active licensure. The patient's identity and physical location wereverified at the time of this visit. Either the patient or their legal insurance sales representative has been informed of the risks and benefits of -- and alternatives to -- treatment through a remote evaluation andconsents to proceed with the evaluation remotely. Patient Summary: Leelee Zamora is 28 year old who [facility] for follow-up evaluation of obesity and related complications. Last Wt 08/05/23 : 93 kg (205 lb) 5% weight loss = 195 lbs, 10% weight loss = 185 lbs Interval History: Last seen 3 mo ago Reports more sweet cravings, weight gain Off Mounjaro since April C/o excess skin on stomach, rashes - uses Nystatin now Obesity Medications: Phentermine , 10/29/22, 255lbs - appetite reduction, taking 1/2 dose - decreased binge eating - grinding teeth at night, taking biotin, better w water intake - no SE Tirzepatide (Mounjaro) 07/01/22, 271lb - reduced appetite. Doesn't know if helpful for cravings - no SE , sulfa burps on occasion, mainly with Micronesian food - reports injection site reactions with 10mg, no change with 15mg - OFF since April 2023, 185-187lbs. Diet: Varies. Reports healthy food choices. +sweet cravings are more Trying to stay around 1500-1800kcal per day. Not tracking. Less hunger at night. Exercise: Walks 10min several times per week. Reports abt 3hrs of exericse. Stair stepper, resistance bands, ?Sleep: Inadequate sleep, about 4-6hrs. ??Stress: More , from divorce. Review of Systems and Social History reviewed in Epic I have confirmed and edited as necessary, the PFSH and ROS obtained by others. Physical Exam:(if done, performed via video enabled technology) NAD Virtual. Results: reviewed labs with the patient. Cr 0.53 Bili 1.5 ALT 7 Impression: Leelee Zamora is a 28 year old year old with obesity, gestational DM Obesity related complications as above, improving with weight loss Body mass index is 37.68 kg/m . Weight gain from bronson weight (192lbs) likely 2/2 DC Mounjaro and sweet cravings. Weight decreased, 80lbs (30%BW) since 08/2022 with Mounjaro ( supply/PA issues) and phentermine On phentermine. Healthy diet, but not optimal. More cravings in part related to absence of Mounjaro. Regular exercise Some metabolic adaptation 2/2 weight loss Excess skin and candidal intertrigo on Nystatin Plan: -- continue current lifestyle, jose strength/resistance training - goal 200min/w -- Continue Phentermine 18.75mg/d -- add topiramate in combination -- f/u with RD at BMI -- RTC 3mo, FTF Fabian Brasher MD MSc All documentation from previous visit of June 08, 2023 was copied and pasted, documentation has been reviewed and edited as necessary for today's visit. I spent a total of 36 minutes on the date of the service which included preparing to see the patient, [id number] patient care, completing clinical documentation, counseling and educating the patient/family/caregiver, and ordering medications, tests, or procedures. documented in this encounter[facility] History of Present illness Narrative* Mireya Shah, - 08/14/2023 1:04 PM EDT COLORECTAL SURGERY VIRTUAL VISIT FOLLOW UP I have communicated my name and active licensure. The patient's identity and physical location wereverified at the time of this visit. Either the patient or their legal insurance sales representative has been informed of the risks and benefits of -- and alternatives to -- treatment through a remote evaluation andconsents to proceed with the evaluation remotely. I had a virtual visit with Ms. Zamora today for follow up UPDATED HISTORY: Leelee Zamora is a 28 year old female presents today to follow-up after exam anesthesia was performed. No recurrence of rectovaginal fistula, sphincter defect, significant constipation was found. PHYSICAL FINDINGS OF NOTE: General - Normal, healthy, cooperative, in no acute distress Able to interact verbally by video conference Pulmonary - respiratory effort normal Abdominal - Not performed Motor - patient seen sitting with Normal appearing strength and coordination Anorectal exam - Not Performed Medical Decision Making: Assessment Assessment & Diagnosis: Leelee Zamora is a 28 year old female with history of complex rectovaginal fistula repair, significant constipation Data Reviewed: Tests & Documents Reviewed/ordered: Review of prior notes from chart I have independently interpreted: I have discussed Leelee Zamora's treatment plan and/or results with patient. Treatment plan: I reviewed the findings of exam under anesthesia and ultrasound with the patient. She does not haveany rectovaginal fistula right now, her perineum is very well-healed. However she has sphincter defect which could affect her function in the future however right now I would not recommend any interventions for her. I am concerned that if she were to undergo any intervention she would not heal. It took her a long time and diversion to heal rectovaginal fistula as this. She has significant constipation, I recommend bowel regimen, she is not on anything regularly. I recommended trying senna, Colace, MiraLAX and very dose medications and amounts to get to a soft regular bowel movements. She has learn to swim instructor who I will defer to for management of abdominal constipation. Discussed with patient if she has difficulty holding still in, she needs to continue doing Kegel's and follow with pelvic floor physical therapy. She continues to have breast milk despite discontinuation of months ago. We discussed this when she was at an appointment with me in person, she will follow-up with a cable braider to get that evaluated. Mireya Shah DO Pelvic Floor Department of Colorectal Surgery Risk of morbidity, mortality and/or complications of treatment plan: moderate I spent a total of 25 minutes on the date of the service which included completing clinical documentation, counseling and educating the patient/family/caregiver, and care coordination (not separatelyreported). documented in this encounterMem[facility]11-03-2023 Miscellaneous Notes* Telephone Encounter - Russell Ovalle - 08/14/2023 10:14 AM EDT Leelee Zamora [phone], says she was told to call to discuss EUA results. documented in this encounterMem[facility]10-[facility] History of Present illness Narrative* Leonela Lal RN - 08/05/2023 2:30 PM EDT Radiology Service Progress Note DATE OF SERVICE: August 05, 2023 TIME: 1:03 PM PATIENT WEIGHT: 205 LBS PATIENT IDENTITY VERIFICATION COMPLETED USING TWO (2) STANDARD IDENTIFIERS: Name and Date of confirmed by patient verbally and Name and Date of confirmed by identification band. FALL SCREENING: Has the patient had 2 falls in the last year or 1 fall with injury or currently using an Ambulatory Assistive Device (Walker, Cane, Wheelchair, Crutches, etc.)? No PATIENT GENDER DATA: Female. status: : No status: NO. ALLERGIES: Reviewed and unchanged CONTRAST ALLERGY: No EXAM: CT -CONTRAST INDUCED NEPHROPATHY RISK FACTORS: Not applicable CREATININE: Creatinine Date Value Ref Range Status 09/10/2022 0.62 0.58 - 0.96 mg/dL Final 04/24/2022 0.52 (L) 0.58 - 0.96 mg/dL Final 10/26/2015 0.63 (L) 0.70 - 1.40 mg/dL Final Estimated Glomerular Filtration Rate Date Value Ref Range Status 09/10/2022 125 >=60 mL/min/1.73m Final Comment: Estimated Glomerular Filtration Rate (eGFR) is calculated using the 2020 CKD-EPI creatinine equation. This equation utilizes serum creatinine, sex, and age as parameters. The creatinine assay has traceable calibration to isotope dilution- mass spectrometry. Refer to KDIGO guidelines for clinical interpretation. In patients with unstable renal function, e.g. those with acute kidney injury, the eGFRmay not accurately reflect actual GFR. eGFR- Date Value Ref Range Status 10/26/2015 >60 Final P.O.C.T. RESULTS: N/A August 05, 2023 TREATMENT: N/A IV SITE: Ambulatory: A peripheral IV was started in the Left antecubital site with a Angio cath: 22gauge. IV SITE APPEARANCE: Clean,Dry and Intact SIGNATURE: Leonela Lal RN PATIENT NAME: Leelee Zamora DATE: August 05, 2023 TIME: 1:03 PM * Anila Joyce RT(R) - 08/05/2023 2:30 PM EDT Radiology Service Progress Note PATIENT NAME: Leelee Zamora DATE OF SERVICE: August 05, 2023 TIME: 1:20 PM PATIENT IDENTITY VERIFICATION COMPLETED USING TWO (2) IDENTIFIERS: Name and Date of confirmedby patient verbally and Name and Date of confirmed by identification band. FALL SCREENING: Has the patient had 2 falls in the last year or 1 fall with injury or currently using an Ambulatory Assistive Device (Walker, Cane, Wheelchair, Crutches, etc.)? No PATIENT GENDER DATA: Female. status: : No status: NO. PATIENT RELEVANT IMPLANT DATA REVIEWED: Yes RADIOLOGY DEPARTMENT: CT; Exam(s) Completed: Abdomen/Pelvis PERIPHERAL IV DATA: Site assessment: Clean,Dry and Intact, Site disposition Discontinued SIGNED BY: RT Gala(R) August 05, 2023 1:20 PM documented in this encounterMem[facility]10-12-[facility] History of Present illness Narrative* Kavya Pham Ma - 07/23/2023 3:07 PM EDT Pt was seen in [facility] ER, report attached below. Scan on 07/22/2023 10:48 PM by Provider, External, PA-C: Consultation - Emergency Medicine Kavya Pham Ma documented in this encounterMemorial [facility]09-21-[facility] History of Past illness Narrative* Problem Noted Date Diagnosed Date Resolved Date Obesity, Class II, BMI 35-39.9 07/02/2023 07/06/2023 documented as of this encounter (statuses as of 07/27/2023) [facility] History of Past illness Narrative* Problem Noted Date Diagnosed Date Resolved Date Obesity, Class II, BMI 35-39.9 07/02/2023 07/06/2023 documented as of this encounter (statuses as of 07/28/2023) [facility] History of Past illness Narrative* Problem Noted Date Diagnosed Date Resolved Date Obesity, Class II, BMI 35-39.9 07/02/2023 07/06/2023 documented as of this encounter (statuses as of 08/05/2023) [facility] History of Past illness Narrative* Problem Noted Date Diagnosed Date Resolved Date Obesity, Class II, BMI 35-39.9 07/02/2023 07/06/2023 documented as of this encounter (statuses as of 08/06/2023) [facility] History of Past illness Narrative* Problem Noted Date Diagnosed Date Resolved Date Obesity, Class II, BMI 35-39.9 07/02/2023 07/06/2023 documented as of this encounter (statuses as of 08/06/2023) [facility] of Past illness Narrative* Problem Noted Date Diagnosed Date Resolved Date Obesity, Class II, BMI 35-39.9 07/02/2023 07/06/2023 documented as of this encounter (statuses as of 08/14/2023) [facility] of Past illness Narrative* Problem Noted Date Diagnosed Date Resolved Date Obesity, Class II, BMI 35-39.9 07/02/2023 07/06/2023 documented as of this encounter (statuses as of 08/15/2023) [facility] History of Past illness Narrative* Problem Noted Date Diagnosed Date Resolved Date Obesity, Class II, BMI 35-39.9 07/02/2023 07/06/2023 documented as of this encounter (statuses as of 08/18/2023) [address]21-2023 History of Past illness Narrative* Problem Noted Date Diagnosed Date Resolved Date Obesity, Class II, BMI 35-39.9 07/02/2023 07/06/2023 documented as of this encounter (statuses as of 08/22/2023) [facility] of Past illness Narrative* Problem Noted Date Diagnosed Date Resolved Date Obesity, Class II, BMI 35-39.9 07/02/2023 07/06/2023 documented as of this encounter (statuses as of 08/28/2023) [facility] of Past illness Narrative* Problem Noted Date Diagnosed Date Resolved Date Obesity, Class II, BMI 35-39.9 07/02/2023 07/06/2023 documented as of this encounter (statuses as of 09/02/2023) [facility] of Past illness Narrative* Problem Noted Date Diagnosed Date Resolved Date Obesity, Class II, BMI 35-39.9 07/02/2023 07/06/2023 documented as of this encounter (statuses as of 09/16/2023) [facility] of Past illness Narrative* Problem Noted Date Diagnosed Date Resolved Date Obesity, Class II, BMI 35-39.9 07/02/2023 07/06/2023 documented as of this encounter (statuses as of 09/17/2023) [facility] of Past illness Narrative* Problem Noted Date Diagnosed Date Resolved Date Obesity, Class II, BMI 35-39.9 07/02/2023 07/06/2023 documented as of this encounter (statuses as of 09/18/2023) [facility] of Past illness Narrative* Problem Noted Date Diagnosed Date Resolved Date Obesity, Class II, BMI 35-39.9 07/02/2023 07/06/2023 documented as of this encounter (statuses as of 11/08/2023) [facility] of Past illness Narrative* Problem Noted Date Diagnosed Date Resolved Date Obesity, Class II, BMI 35-39.9 07/02/2023 07/06/2023 documented as of this encounter (statuses as of 11/13/2023) [address]21-2023 History of Past illness Narrative* Problem Noted Date Diagnosed Date Resolved Date Obesity, Class II, BMI 35-39.9 07/02/2023 07/06/2023 documented as of this encounter (statuses as of 11/19/2023) [facility] of Past illness Narrative* Problem Noted Date Diagnosed Date Resolved Date Obesity, Class II, BMI 35-39.9 07/02/2023 07/06/2023 documented as of this encounter (statuses as of 11/24/2023) [facility] of Past illness Narrative* Problem Noted Date Diagnosed Date Resolved Date Obesity, Class II, BMI 35-39.9 07/02/2023 07/06/2023 documented as of this encounter (statuses as of 11/24/2023) [facility] of Past illness Narrative* Problem Noted Date Diagnosed Date Resolved Date Obesity, Class II, BMI 35-39.9 07/02/2023 07/06/2023 documented as of this encounter (statuses as of 11/24/2023) [facility] of Past illness Narrative* Problem Noted Date Diagnosed Date Resolved Date Obesity, Class II, BMI 35-39.9 07/02/2023 07/06/2023 documented as of this encounter (statuses as of 11/25/2023) [facility] of Past illness Narrative* Problem Noted Date Diagnosed Date Resolved Date Obesity, Class II, BMI 35-39.9 07/02/2023 07/06/2023 documented as of this encounter (statuses as of 11/27/2023) [facility] of Past illness Narrative* Problem Noted Date Diagnosed Date Resolved Date Obesity, Class II, BMI 35-39.9 07/02/2023 07/06/2023 documented as of this encounter (statuses as of 11/27/2023) [facility] of Past illness Narrative* Problem Noted Date Diagnosed Date Resolved Date Obesity, Class II, BMI 35-39.9 07/02/2023 07/06/2023 documented as of this encounter (statuses as of 12/03/2023) [address]21-2023 History of Past illness Narrative* Problem Noted Date Diagnosed Date Resolved Date Obesity, Class II, BMI 35-39.9 07/02/2023 07/06/2023 documented as of this encounter (statuses as of 12/06/2023) [facility] of Past illness Narrative* Problem Noted Date Diagnosed Date Resolved Date Obesity, Class II, BMI 35-39.9 07/02/2023 07/06/2023 IUD (intrauterine device) in place 11/06/2022 12/07/2023 Acute deep vein thrombosis ( DVT) of popliteal vein of right lower extremity 02/09/2022 12/07/2023 Last Assessment & Plan: Assessment: Hx of DVT x 2 - Upper extremity in 2020, LE in 2021. No hypercoagulable work up, but does report mom having high factor VIII. Encounter for insertion of mirena IUD 12/16/2018 12/07/2023 Class 2 obesity without seri ous comorbidity with body mass index (BMI) of 36.0 to 36.9 in adult 03/09/2018 12/07/2023 Last Assessment & Plan: Assessment: Body mass index is 36.14 kg/m . documented as of this encounter (statuses as of 12/10/2023) [facility] History of Past illness Narrative* Problem Noted Date Diagnosed Date Resolved Date Obesity, Class II, BMI 35-39.9 07/02/2023 07/06/2023 IUD (intrauterine device) in place 11/06/2022 12/07/2023 Acute deep vein thrombosis ( DVT) of popliteal vein of right lower extremity 02/09/2022 12/07/2023 Last Assessment & Plan: Assessment: Hx of DVT x 2 - Upper extremity in 2020, LE in 2021. No hypercoagulable work up, but does report mom having high factor VIII. Encounter for insertion of mirena IUD 12/16/2018 12/07/2023 Class 2 obesity without seri ous comorbidity with body mass index (BMI) of 36.0 to 36.9 in adult 03/09/2018 12/07/2023 Last Assessment & Plan: Assessment: Body mass index is 36.14 kg/m . documented as of this encounter (statuses as of 12/10/2023) [facility] History of Past illness Narrative* Problem Noted Date Diagnosed Date Resolved Date Obesity, Class II, BMI 35-39.9 07/02/2023 07/06/2023 IUD (intrauterine device) in place 11/06/2022 12/07/2023 Acute deep vein thrombosis ( DVT) of popliteal vein of right lower extremity 02/09/2022 12/07/2023 Last Assessment & Plan: Assessment: Hx of DVT x 2 - Upper extremity in 2020, LE in 2021. No hypercoagulable work up, but does report mom having high factor VIII. Encounter for insertion of mirena IUD 12/16/2018 12/07/2023 Class 2 obesity without seri ous comorbidity with body mass index (BMI) of 36.0 to 36.9 in adult 03/09/2018 12/07/2023 Last Assessment & Plan: Assessment: Body mass index is 36.14 kg/m . documented as of this encounter (statuses as of 12/27/2023) [facility] History of Past illness Narrative* Problem Noted Date Diagnosed Date Resolved Date Obesity, Class II, BMI 35-39.9 07/02/2023 07/06/2023 IUD (intrauterine device) in place 11/06/2022 12/07/2023 Acute deep vein thrombosis ( DVT) of popliteal vein of right lower extremity 02/09/2022 12/07/2023 Last Assessment & Plan: Assessment: Hx of DVT x 2 - Upper extremity in 2020, LE in 2021. No hypercoagulable work up, but does report mom having high factor VIII. Encounter for insertion of mirena IUD 12/16/2018 12/07/2023 Class 2 obesity without seri ous comorbidity with body mass index (BMI) of 36.0 to 36.9 in adult 03/09/2018 12/07/2023 Last Assessment & Plan: Assessment: Body mass index is 36.14 kg/m . documented as of this encounter (statuses as of 01/28/2024) [facility] Miscellaneous Notes* Telephone Encounter - Armando Boyce Cma - 06/25/2023 1:01 PM EDT No answer and VM full- patient active on [employer] message sent Armando Boyce Cma * Telephone Encounter - Cooper Gastelum APRN.CNP - 06/25/2023 11:19 AM EDT Please let patient know her hgb a1c is nornal. documented in this encounterMem[facility]09-14-2023 Miscellaneous Notes* Telephone Encounter - Armando Boyce Cma - 06/25/2023 11:01 AM EDT Patient notified and verbalized understanding Armando Boyce Cma * Telephone Encounter - Cooper Gastelum APRN.CNP - 06/25/2023 10:53 AM EDT Please let patient know her STI testing is all negative. Discharge is likely secondary to IUD documented in this encounterMem[facility]09[facility] History of Present illness Narrative* Cooper Gastelum APRN.CNP - 06/23/2023 1:48 PM EDT Chief Complaint Patient presents with: Vaginal Problem HPI Leelee Zamora is a 28 year old female who presents here today for Above Complaints.. Patient presents with complaints of white thick discharge. Patient also reports urethral pain. Patient reports she is concerned as she recently had a sexual encounter and the condom broke. Past medical history, appointments, medications, allergies reviewed. Previous Medical History PAST MEDICAL HISTORY Diagnosis Date Acute deep vein thrombosis (DVT) of popliteal vein of right lower extremity ([facility]) 02/2022 Allergic rhinitis, unspecified 12/16/2018 Chlamydia 16 YO Encounter for insertion of mirena IUD 12/24/2021 Ex-smoker 12/16/2018 Started at age 19 up to 1/2-1 PPD, quit 05/2018 SAMAN (generalized anxiety disorder) 12/16/2018 Seeing Klaus Gonzalez at the [facility] center. History of gastroesophageal reflux (GERD) 12/16/2018 Obesity, Class III, BMI 40-49.9 (morbid obesity) ([facility]) 03/09/2018 Psoriasis 12/16/2018 Vitamin D deficiency 12/16/2018 Previous Surgical History PAST SURGICAL HISTORY Procedure Laterality Date CYST EXCISION 2016 right leg D&C, DIAG AND/OR THERAPEUTIC 2019 EXTRACTION, ERUPTED TOOTH OR EXPOSED ROOT (ELEVATION AND/OR FORCEPS REMOVAL) 2012 LOCAL REVISION OF ILESTOMY 02/24/2022 Family History FAMILY HISTORY Problem Relation Age of Onset Diabetes Father Hypertension Father Heart disease Mother arythmia Kidney Disease Maternal Grandmother other (lupus) Maternal Grandmother Diabetes Paternal Grandfather Hypertension Paternal Grandfather Colon Cancer Paternal Grandmother late 50's Coronary Artery Disease Paternal Grandmother 40's Diabetes Paternal Grandmother Hypertension Paternal Grandmother Cervical Cancer Paternal Aunt Uterine Cancer Paternal Aunt Thyroid Cancer Paternal Aunt Alzheimer's Disease No Family History Breast Cancer No Family History Ovarian cancer No Family History Hyperlipidemia No Family History Thyroid No Family History Seizures No Family History Stroke No Family History Patient Allergies ALLERGIES Allergen Reactions Tree Nuts Rash Morphine Other: See Comments Tightness in chest Current Medications Current Outpatient Medications on File Prior to Visit Medication Sig SUMAtriptan (IMITREX) 100 mg tablet Take 1 tablet by mouth as needed for migraine headache (see administration instructions) (at onset of headache. May repeat after 2 hours.). Phentermine HCl 37.5 mg tablet Take 1 tablet by mouth once daily for 90 days. BMI 40.74 tirzepatide (MOUNJARO) 12.5 mg/0.5 mL pen injector Inject 12.5 mg subcutaneously one time a week. (Patient not taking: Reported on 06/09/2023) nystatin (MYCOSTATIN) powder Apply 1 application to affected area four times daily. No current facility-administered medications on file prior to visit. Social History Social History Tobacco Use Smoking status: Former Years: 4 Types: Cigarettes Smokeless tobacco: Never Tobacco comments: 5 to 6 cigarettes Vaping Use Vaping Use: Never used Substance Use Topics Alcohol use: No Drug use: No Review of Symptoms REVIEW OF SYSTEMS SEE HPI EXAM: BP 116/76 Pulse 88 Resp 16 Wt 93 kg (205 lb) LMP 02/03/2023 BMI 36.31 kg/m General Appearance: Well appearing, alert, in no acute distress, well-hydrated, well nourished.. Pelvic: External genitalia Normal, and vagina normal. Small amount of white discharge noted. Health Maintenance List Hepatitis B Vaccine(1 of 3 - 3-dose series) Never done Covid-19 Vaccine(1) Never done Hepatitis C Screening Never done HIV Screening Never done DTaP,Tdap,Td Vaccine(1 - Tdap) Never done Depression Assessment Never done Influenza Vaccine(1) due on 06/12/2023 Pap Testing due on 03/12/2026 HPV Vaccine Aged Out ASSESSMENT/PLAN: 1.White vaginal discharge - ICD9: 623.5, ICD10: N89.8 - JOJO/TRICHOMONAS NAAT - BACTERIAL VAGINOSIS NAAT - GONORRHEA/CHLAMYDIA NAAT 2. Urethral pain - ICD9: 788.99, ICD10: R39.89 - UA DIP, URINE (POC) Cooper Gastelum APRN.HOME VISITOR [employer] documented in this encounterMemorial [facility]09-12[facility] History of Present illness Narrative* Marietta Kitchen APRN.HOME VISITOR [employer] - 06/23/2023 8:37 AM EDT Telemedicine Visit - Distance Health Virtual Visit Note Patient seen on Zoom. Location of patient: [place] History of Present Illness Leelee Zamora is a 28 year old female who presents with concern about sexually transmitted infection. Patient reports creamy white vaginal discharge and urethral pain. Concern about trichomonas, unsure if exposed. Patient is pleasant, alert, speaking in full sentences, non-toxic appearing. Plan Advised on limitations of [employer] Online service. Recommend in-person evaluation. Patient is agreeable. Appointment cancelled and fee waived. Marietta Kitchen APRN.HOME VISITOR [employer] documented in this encounterMemorial [facility]09-07-2023 Miscellaneous Notes* Telephone Encounter - Maria A Tinsley LPN - 06/18/2023 12:53 PM EDT Provider was able to complete appointment with patient. documented in this encounterMemorial [facility]08-29-2023 History of Present illness Narrative* Pj James MD - 06/09/2023 1:30 PM EDT CC: eye symptoms S: Right eye pain, eye ball hurts, pain inside head behind eye, once or twice a week. Duration of episodes 1-2 days. Tylenol/ibuprofen not helping She is still making breast milk (2 year old daughter); OB says this is normal Mood swings. Still having blurry vision mostly at the time when she has eye pain. Medications: Current Outpatient Medications on File Prior to Visit Medication Sig tirzepatide (MOUNJARO) 7.5 mg/0.5 mL pen injector Inject 7.5 mg subcutaneously one time a week. tirzepatide (MOUNJARO) 7.5 mg/0.5 mL pen injector Inject 7.5 mg subcutaneously one time a week. Phentermine HCl 37.5 mg tablet Take 1 tablet by mouth once daily for 90 days. BMI 40.74 Bifidobacterium Infantis (ALIGN) 4 mg cap Take 1 capsule by mouth once daily. FOR IBS. No current facility-administered medications on file prior to visit. Exam: Vitals: LMP 02/03/2023 BP 118/78 (BP Site: Left Arm, BP Position: Sitting, BP Cuff Size: Large Adult) Pulse 90 Ht 160 cm (5' 3) Wt 91.4 kg (201 lb 8 oz) LMP 02/03/2023 SpO2 100% BMI 35.69 kg/m Gen: well appearing, in no acute distress Alert, oriented to person, place, time. Speech fluent with no dysarthria or aphasia. Attention and concentration intact. Recent and remote memory intact. Fund of knowledge is normal. Pupils equally round and reactive to light. Extraocular muscles intact. Visual rosales full, face symmetric. Normal muscles bulk and tone Coordination intact Gait is normal Assessment/Plan: Leelee presents with 6 month history of right eye and head pain, with blurry vision associated withthe episodes. She was initially referred by an outside senior application software engineer for evaluation for 4th nerve palsy. We discussed that she has no abnormalities apparent on exam of extraocular movements. Additionally she has no symptoms of diplopia, which would be atypical principal symptoms of 4th nerve palsy. As such I am not concerned for 4th nerve palsy. I referred her to a [facility] lunchroom attendant for further ophthalmologic exam and evaluation. She had opthalmologic exam at [facility] demonstrating mild exophoria, no findings of CN4 palsy, no other significant findings. Advised hot compress and erythromycin ointment to eyes. Eye and head pain could be secondary to migraine. I will give her rx for sumatriptan for symptomatic treatment of episodes. RTC 3 months. documented in this encounterMem[facility] History of Present illness Narrative* Fabian Brasher MD - 06/08/2023 2:20 PM EDT Images from the original note were not included. BMI Obesity Medicine Note Distance [facility] Visit June 08, 2023 Virtual Visit (Audio/Visual)I have discussed the nature of this visit with the patient which will occur via Distance [facility] (Phone, Virtual Visit) and she agrees to proceed with this interaction. I have communicated my name and active licensure. The patient's identity and physical location wereverified at the time of this visit. Either the patient or their legal insurance sales representative has been informed of the risks and benefits of -- and alternatives to -- treatment through a remote evaluation andconsents to proceed with the evaluation remotely. Patient Summary: Leelee Zamora is 27 year old who [facility] for follow-up evaluation of obesity and related complications. In previous visits we have outlined an individualized lifestyle intervention including a personalized nutrition recommendations and physical activity optimization. Currently on an anti-obesity medication below. Virtual encounter done together with the assistance of Christofer Braswell RDN Last Wt 05/15/23 : 87.1 kg (192 lb) 5% weight loss = 182 lbs, 10% weight loss = 173 lbs Interval History: Last seen a fwe months ago Reports more sweet cravings, weight gain Off Mounjaro x 1mo, unable to get 15mg dose -- reports last injection 5 wks ago, waiting for prior auth C/o excess skin on stomach, rashes - uses cream Obesity Medications: Phentermine , 10/29/22, 255lbs - appetite reduction, taking 1/2 dose - decreased binge eating - grinding teeth at night, taking biotin Tirzepatide (Mounjaro) 07/01/22, 271lb - reduced appetite. Doesn't know if helpful for cravings - no SE , sulfa burps on occasion, mainly with Micronesian food -- reports injection site reactions with 10mg, no change with 15mg Diet: Varies. Reports healthy food choices. Eats B. Less hunger at night. Exercise: Daily walking, ?Sleep: Adequate sleep. ??Stress: none Review of Systems and Social History reviewed in [facility] I have confirmed and edited as necessary, the PFSH and ROS obtained by others. Physical Exam:(if done, performed via video enabled technology) NAD Results: reviewed labs with the patient. Impression: Leelee Zamora is a 28 year old year old with obesity, gestational DM, Body mass index is 34.37 kg/m . Obesity related complications as above, improving with weight loss Weight decreased, >70 (>25%BW) since 08/2022 Was on Mounjaro and phentermine, tolerating both well Off mounjaro because of supply/PA issues. On phentermine good response. Lifestyle healthy, improved sleep, regular exercise Some metabolic adaptation 2/2 weight loss Excess skin and candidal intertrigo Plan: -- continue current lifestyle, jose strength/resistance training -- Continue Phentermine and tirzepatide. Rx for 12.5mg/wk because supply -- Rx nysatin for skin -- f/u with RD at BMI -- RTC 3mo Fabian Brasher MD MSc All documentation from previous visit of December 24, 2022 was copied and pasted, documentation has been reviewed and edited as necessary for today's visit. documented in this encounterMem[facility]08-09-[facility]23 History of Present illness Narrative* Kiki Dumont MA - 05/20/2023 6:22 PM EDT Scan on 05/18/2023 2:32 PM by Provider, JOSE Alvarez: CT Scan Kiki Dumont MA documented in this encounterMemorial [facility]08-04-2023 History of Present illness Narrative* Melissa Daniel APRN.CNP - 05/15/2023 4:36 PM EDT Patient came to express care concerned about phone call, that she did not have a UTI, and blood in urine. States that prior to coming into appointment she did use antibiotics. Advised this could havealtered culture. After discussion with patient she chooses to complete antibiotic that she was given due to h/o 2 previous UTI in the past year. After completion of antibiotic, will be seen by DIGITAL PRINT OPERATOR for std testing and recheck of urine. Patient declined visit or treatment today. Melissa Daniel APRN.CNP documented in this encounterMemorial [facility]08-04-2023 Miscellaneous Notes* Telephone Encounter - Sandra Leung MA - 05/15/2023 3:18 PM EDT Patient notified of results, verbalized understanding of instructions given. Sandra Leung MA * Telephone Encounter - Roverto Ag APRN.CNP - 05/15/2023 3:10 PM EDT No bacterial infection noted on urine culture. May discontinue antibiotics. Follow up with PCP or MATERIALS ANALYST for reevaluation. Roverto Ag APRN.CNP documented in this encounterMemorial [facility]08-03-2023 History of Present illness Narrative* Maryann Matias PA-C - 05/14/2023 11:35 AM EDT This note was created using NoteWriter. Subjective Leelee Zamora is a 28 year old female. HPI Presents with dysuria, urgency, hematuria over the past 2 days. She had a UTI in February, also in April and now is having symptoms. She denies chance of , but is going through a divorce with her . No vaginal itching or discharge. No fever. No new back pain. No vomiting. Review of Systems Constitutional: Negative. HENT: Negative. Respiratory: Negative. Cardiovascular: Negative. Gastrointestinal: Negative. Genitourinary: Positive for dysuria, frequency, hematuria, pelvic pain and urgency. Negative for vaginal bleeding, vaginal discharge and vaginal pain. Musculoskeletal: Negative. All other systems reviewed and are negative. PAST MEDICAL HISTORY Diagnosis Date Acute deep vein thrombosis (DVT) of popliteal vein of right lower extremity ([facility]) 02/2022 Allergic rhinitis, unspecified 12/16/2018 Chlamydia 16 YO Encounter for insertion of mirena IUD 12/24/2021 Ex-smoker 12/16/2018 Started at age 19 up to 1/2-1 PPD, quit 05/2018 SAMAN (generalized anxiety disorder) 12/16/2018 [facility]. History of gastroesophageal reflux (GERD) 12/16/2018 Obesity, Class III, BMI 40-49.9 (morbid obesity) ([facility]) 03/09/2018 Psoriasis 12/16/2018 Vitamin D deficiency 12/16/2018 Current Outpatient Medications Medication Sig Dispense Refill tirzepatide (MOUNJARO) 7.5 mg/0.5 mL pen injector Inject 7.5 mg subcutaneously one time a week. 2 mL 0 tirzepatide (MOUNJARO) 15 mg/0.5 mL pen injector Inject 15 mg subcutaneously one time a week. 2 mL 2 Phentermine HCl 37.5 mg tablet Take 1 tablet by mouth once daily for 90 days. BMI 40.74 30 tablet 2 Bifidobacterium Infantis (ALIGN) 4 mg cap Take 1 capsule by mouth once daily. FOR IBS. 90 capsule 6 nitrofurantoin monohydrate and macrocrystal (MACROBID) 100 mg capsule Take 1 capsule by mouth twicedaily with meals for 7 days. 14 capsule 0 tirzepatide (MOUNJARO) 7.5 mg/0.5 mL pen injector Inject 7.5 mg subcutaneously one time a week. 2 mL 0 No current facility-administered medications for this visit. PAST SURGICAL HISTORY Procedure Laterality Date CYST EXCISION 2016 right leg D&C, DIAG AND/OR THERAPEUTIC 2019 EXTRACTION, ERUPTED TOOTH OR EXPOSED ROOT (ELEVATION AND/OR FORCEPS REMOVAL) 2012 LOCAL REVISION OF ILESTOMY 02/24/2022 FAMILY HISTORY Problem Relation Age of Onset Diabetes Father Hypertension Father Heart disease Mother arythmia Kidney Disease Maternal Grandmother other (lupus) Maternal Grandmother Diabetes Paternal Grandfather Hypertension Paternal Grandfather Colon Cancer Paternal Grandmother late 50's Coronary Artery Disease Paternal Grandmother 40's Diabetes Paternal Grandmother Hypertension Paternal Grandmother Cervical Cancer Paternal Aunt Uterine Cancer Paternal Aunt Thyroid Cancer Paternal Aunt Alzheimer's Disease No Family History Breast Cancer No Family History Ovarian cancer No Family History Hyperlipidemia No Family History Thyroid No Family History Seizures No Family History Stroke No Family History Social History Tobacco Use Smoking status: Former Years: 4.00 Types: Cigarettes Smokeless tobacco: Never Tobacco comments: 5 to 6 cigarettes Vaping Use Vaping Use: Never used Substance Use Topics Alcohol use: No Drug use: No Objective BP 132/92 Pulse 92 Temp 36.9 C (98.5 F) Resp 20 Wt 87 kg (191 lb 12.8 oz) LMP 02/03/2023 (Approximate) SpO2 98% BMI 33.98 kg/m Physical Exam Vitals reviewed. Constitutional: Appearance: Normal appearance. HENT: Head: Normocephalic and atraumatic. Cardiovascular: Rate and Rhythm: Normal rate and regular rhythm. Heart sounds: Normal heart sounds. Pulmonary: Effort: Pulmonary effort is normal. Breath sounds: Normal breath sounds. Abdominal: General: Abdomen is flat. Palpations: Abdomen is soft. Tenderness: There is abdominal tenderness. There is no right CVA tenderness, left CVA tenderness orguarding. Comments: Mild suprapubic ttp. No guarding or rebound ttp Neurological: Mental Status: She is alert. Assessment and Plan ASSESSMENT/PLAN: 1. Recurrent UTI - ICD9: 599.0, ICD10: N39.0 Urine dip positive here for leuks and blood. Will start on Macrobid. Follow-up with PCP. Patient agreeable. - UA DIP, URINE (POC) - URINE CULTURE Maryann Matias PA-C documented in this encounterMemorial [facility]08-03-2023 Miscellaneous Notes* Telephone Encounter - Alessandra Roach RN - 05/14/2023 9:29 AM EDT Opened in error Patient called, did not disclose reason for call. My co workers aren't helping, call me back later documented in this encounterMemorial [facility]08-03-2023 History of Present illness Narrative* Jo Napoles APRN.CNP - 05/14/2023 9:04 AM EDT This is an Express Care eVisit note for Leelee Zamora eVisit/Questionnaire reviewed The chief complaint for the visit - Patient presents with: Dysuria Recommendations/Treatment plan - See My Chart Message to patient Time spent <1 minute Jo Napoles APRN.CNP documented in this encounterMemorial [facility]08-03-2023 History of Present illness Narrative* Nicky Fonseca APRN.CNP - 05/14/2023 7:58 AM EDT This is an Express [facility] eVisit note for Leelee Zamora eVisit/Questionnaire reviewed The chief complaint for the visit - Patient presents with: UTI Recommendations/Treatment plan - See My Chart Message to patient Patient referred for in person exam. Total time spent on evisit: <5 minutes Nicky Fonseca APRN.CNP documented in this encounterMemorial [facility]07-29-2023 Miscellaneous Notes* Telephone Encounter - Angela Carlson LPN - 05/09/2023 12:56 PM EDT Patient calling regarding spotting off period, pt concerned her IUD might not be in place. Conferenced to pulmonology technician Answering Service [ ] to speak with provider retail seasonal specialist for Dr. Schultz at phone number ([phone]). While on hold pt disconnected the call. Called pt back and again while on hold for distribution dispatcher pt disconnected. Angela Carlson LPN documented in this encounterMemorial [facility]07-10-2023 Miscellaneous Notes* Telephone Encounter - Maria A Tinsley LPN - 04/20/2023 5:31 PM EDT Request sent to Stephani Morrison CNP. documented in this encounterMemorial [facility]07-08-2023 History of Present illness Narrative* Maryann Matias PA-C - 04/18/2023 3:39 PM EDT This note was created using Econodatariter. Subjective Leelee Zamora is a 27 year old female. HPI Patient presents with the chief complaint of pelvic pressure and dysuria days. She had a UTI in Februaryand this feels similar. Denies vaginal itching or discharge. Not sexually active for several months, denies chance of . She has an IUD. No fever. She has had some back pain. Denies history of kidney stones. Review of Systems Constitutional: Negative. HENT: Negative. Respiratory: Negative. Genitourinary: Positive for dysuria, flank pain, frequency, pelvic pain and urgency. Negative for hematuria, vaginal bleeding, vaginal discharge and vaginal pain. All other systems reviewed and are negative. PAST MEDICAL HISTORY Diagnosis Date Acute deep vein thrombosis (DVT) of popliteal vein of right lower extremity ([facility]) 02/2022 Allergic rhinitis, unspecified 12/16/2018 Chlamydia 16 YO Encounter for insertion of mirena IUD 12/24/2021 Ex-smoker 12/16/2018 Started at age 19 up to 1/2-1 PPD, quit 05/2018 SAMAN (generalized anxiety disorder) 12/16/2018 [facility]. History of gastroesophageal reflux (GERD) 12/16/2018 Obesity, Class III, BMI 40-49.9 (morbid obesity) ([facility]) 03/09/2018 Psoriasis 12/16/2018 Vitamin D deficiency 12/16/2018 Current Outpatient Medications Medication Sig Dispense Refill Phentermine HCl 37.5 mg tablet Take 1 tablet by mouth once daily for 90 days. BMI 40.74 30 tablet 2 tirzepatide (MOUNJARO) 15 mg/0.5 mL pen injector Inject 15 mg subcutaneously one time a week. 2 mL 2 Bifidobacterium Infantis (ALIGN) 4 mg cap Take 1 capsule by mouth once daily. FOR IBS. 90 capsule 6 sulfamethoxazole-trimethoprim (BACTRIM DS) 800-160 mg per tablet Take 1 tablet by mouth twice dailyfor 5 days. 10 tablet 0 No current facility-administered medications for this visit. PAST SURGICAL HISTORY Procedure Laterality Date CYST EXCISION 2016 right leg D&C, DIAG AND/OR THERAPEUTIC 2019 EXTRACTION, ERUPTED TOOTH OR EXPOSED ROOT (ELEVATION AND/OR FORCEPS REMOVAL) 2012 LOCAL REVISION OF ILESTOMY 02/24/2022 FAMILY HISTORY Problem Relation Age of Onset Diabetes Father Hypertension Father Heart disease Mother arythmia Kidney Disease Maternal Grandmother other (lupus) Maternal Grandmother Diabetes Paternal Grandfather Hypertension Paternal Grandfather Colon Cancer Paternal Grandmother late 50's Coronary Artery Disease Paternal Grandmother 40's Diabetes Paternal Grandmother Hypertension Paternal Grandmother Cervical Cancer Paternal Aunt Uterine Cancer Paternal Aunt Thyroid Cancer Paternal Aunt Alzheimer's Disease No Family History Breast Cancer No Family History Ovarian cancer No Family History Hyperlipidemia No Family History Thyroid No Family History Seizures No Family History Stroke No Family History Social History Tobacco Use Smoking status: Former Years: 4.00 Types: Cigarettes Smokeless tobacco: Never Tobacco comments: 5 to 6 cigarettes Vaping Use Vaping Use: Never used Substance Use Topics Alcohol use: No Drug use: No Objective BP 122/70 Pulse 96 Temp 36.6 C (97.9 F) Resp 16 Wt 88.9 kg (196 lb) LMP 02/03/2023 (Approximate) SpO2 99% BMI 34.72 kg/m Physical Exam Vitals reviewed. Constitutional: Appearance: Normal appearance. HENT: Head: Normocephalic and atraumatic. Cardiovascular: Rate and Rhythm: Normal rate and regular rhythm. Heart sounds: Normal heart sounds. Pulmonary: Effort: Pulmonary effort is normal. Breath sounds: Normal breath sounds. Abdominal: General: Abdomen is flat. Palpations: Abdomen is soft. Tenderness: There is no right CVA tenderness or left CVA tenderness. Comments: Mild suprapubic ttp. No guarding. Skin: General: Skin is warm and dry. Neurological: Mental Status: She is alert. Assessment and Plan ASSESSMENT/PLAN: 1. Pelvic pain - ICD9: [id number], ICD10: R10.2 -UA positive here for blood and leuks. Will treat with Bactrim. If culture comes back negative would recommend follow-up with urology or PCP. - UA DIP, URINE (POC) - URINE CULTURE Maryann Matias PA-C documented in this encounterMemorial [facility]06-01-2023 History of Present illness Narrative* Humberto Schultz MD - 03/12/2023 11:23 AM EDT Leelee Zamora is a 27 year old who presents for her annual gynecologic exam. Assistant Professor Of Psychology concerns UTI KEFLEX RX 7 DAYS, DAY 3, Cycle every 90 days Flow 5 days Contraception: Mirena IUD Last Pap: History of abnormal pap: History of STDS Last mammogram: History of abnormal mammogram: PAST MEDICAL HISTORY Diagnosis Date Acute deep vein thrombosis (DVT) of popliteal vein of right lower extremity ([facility]) 02/2022 Allergic rhinitis, unspecified 12/16/2018 Chlamydia 16 YO Encounter for insertion of mirena IUD 12/24/2021 Ex-smoker 12/16/2018 Started at age 19 up to 1/2-1 PPD, quit 05/2018 SAMAN (generalized anxiety disorder) 12/16/2018 Seeing Klaus [facility]. History of gastroesophageal reflux (GERD) 12/16/2018 Obesity, Class III, BMI 40-49.9 (morbid obesity) ([facility]) 03/09/2018 Psoriasis 12/16/2018 Vitamin D deficiency 12/16/2018 PAST SURGICAL HISTORY Procedure Laterality Date CYST EXCISION 2017 right leg D&C, DIAG AND/OR THERAPEUTIC 2019 EXTRACTION, ERUPTED TOOTH OR EXPOSED ROOT (ELEVATION AND/OR FORCEPS REMOVAL) 2012 LOCAL REVISION OF ILESTOMY 02/24/2022 FAMILY HISTORY Problem Relation Age of Onset Diabetes Father Hypertension Father Heart disease Mother arythmia Kidney Disease Maternal Grandmother other (lupus) Maternal Grandmother Diabetes Paternal Grandfather Hypertension Paternal Grandfather Colon Cancer Paternal Grandmother late 50's Coronary Artery Disease Paternal Grandmother 40's Diabetes Paternal Grandmother Hypertension Paternal Grandmother Cervical Cancer Paternal Aunt Uterine Cancer Paternal Aunt Thyroid Cancer Paternal Aunt Alzheimer's Disease No Family History Breast Cancer No Family History Ovarian cancer No Family History Hyperlipidemia No Family History Thyroid No Family History Seizures No Family History Stroke No Family History Social History Tobacco Use Smoking status: Former Years: 4.00 Types: Cigarettes Smokeless tobacco: Never Tobacco comments: 5 to 6 cigarettes Vaping Use Vaping Use: Never used Substance Use Topics Alcohol use: No Drug use: No REVIEW OF SYSTEMS Bladder: Recent UTI treated with resolution of symptoms Bowel: No blood in stool, pain with BM, tarry stool, persistent diarrhea or constipation Breast: No breast lumps, nipple d/c, overlying skin changes, redness or skin retraction EXAM: pleasant,well developed,well nourished female in no apparent distress HEENT: WNL NECK: Full range of motion,no adenopathy,thyroid normal DERMATOLOGY:Without lesions, Non-icteric, non-hirsute BREAST: deferred CHEST: Normal inspiratory effort CARDIAC:Regular rate, ABDOMEN: Soft,non-tender,no hernia,No masses, hepatosplenomegaly,No lymphadenopathy PELVIC: external genitalia normal, normal Bartholin's glands, urethra, [place]'s glands, no vulvar lesions, no cervical lesions, normal discharge, well estrogenized, good vaginal support, vault clean with normal discharge, normal appearing perineal body and perianal region BIMANUAL: no cervical motion tenderness, no adnexal masses, and no pelvic masses RECTAL: deferred. NEURO: alert and oriented x3,exam grossly non-focal EXTREMITIES: Warm,No cyanosis, clubbing,No edema,nontender ASSESSMENT: 1) Normal annual exam. (Z01.419) Well female exam with routine gynecological exam (primary encounter diagnosis) Comment: Plan: PAP TEST (N76.0) Acute vaginitis Comment: Plan: CANCELED: FUNGAL SCREEN (N39.0) Frequent UTI Comment: Plan: URINE CULTURE PLAN: 1) Pap done with HPV 2) SBE reviewed, Mammogram ordered previously and negative 3) Nutrition, exercise and routine health maintenance exams reviewed The following approved medication requests have been transmitted electronically. Requested Prescriptions Signed Prescriptions Disp Refills Bifidobacterium Infantis (ALIGN) 4 mg cap 90 capsule 6 Sig: Take 1 capsule by mouth once daily. FOR IBS. fluconazole (DIFLUCAN) 150 mg tablet 2 tablet 0 Sig: Take 1 tablet by mouth one time only for 1 dose. Repeat 48 hours later, after keflex is completed. MD Humberto Barnes MD documented in this encounterMemorial Health [facility]05-30-2023 History of Present illness Narrative* Sriram Aponte - 03/10/2023 1:29 PM EDT POPULATION HEALTH NAVIGATION OUTREACH Action/[facility] Outreach: Patient Declined GLO consult. Patient Identified by Name and : YES, via [employer] Outreach Outcome/Action Spoke to patient / parent / legal guardian: Patient declined Did you use a PCP flex slot to schedule this appointment? No Reason for Outreach Care Gap or Scheduling/Wellness visits Payer: Payor: RISHI / Plan: BLUE CARD PPO OOS / Product Type: PPO / Care Gap Reviewed:: ORQ Reminder: Reminder note to check Health Maintenance for items below Health Maintenance items due: HEPATITIS B(1 of 3 - 3-dose series) Never done COVID-19 VACCINE(1) Never done HEPATITIS C SCREENING Never done HIV SCREENING Never done DTAP,TDAP,TD(1 - Tdap) Never done PAP TESTING Never done DEPRESSION ASSESSMENT Never done Navigation Signature: Sriram Aponte March 10, 2023 1:29 PM documented in this encounterMemorial Health [facility]05-04-2023 History of Present illness Narrative* Ericka Lockett, RT(R) - 02/12/2023 3:00 PM EDT Radiology Service Progress Note PATIENT NAME: Leelee Zamora DATE OF SERVICE: February 12, 2023 TIME: 2:55 PM PATIENT IDENTITY VERIFICATION COMPLETED USING TWO (2) IDENTIFIERS: Name and Date of confirmedby patient verbally. FALL SCREENING: Has the patient had 2 falls in the last year or 1 fall with injury or currently using an Ambulatory Assistive Device (Walker, Cane, Wheelchair, Crutches, etc.)? No PATIENT GENDER DATA: Female. status: : No status: NO. PATIENT RELEVANT IMPLANT DATA REVIEWED: Yes RADIOLOGY DEPARTMENT: General X-ray: Exam(s) Completed: Upper Extremity X- Ray(s): Shoulder, AP / TRUE AP / AXILLARY left PERIPHERAL IV DATA: Not applicable SIGNED BY: RT Jb(R) February 12, 2023 2:55 PM documented in this encounterMemorial Health [facility]05-04-2023 History of Present illness Narrative* Roverto Ag APRN.HOME VISITOR HOME BASE HEAD START - 02/12/2023 2:36 PM EDT Images from the original note were not included. Subjective HPI Nontoxic-appearing female presents urgent care chief complaint rib pain. Duration of symptoms 2 weeks. Associated symptoms left shoulder pain. Patient describes pain as deep underneath scapular region. Pain has been consistent. Has not improved has not worsened. Has not tried any OTC medications. Rates pain 1-2 out of 10 at rest 6-7 out of 10 with certain movements. Describes pain as reproducible. Denies any injuries. No numbness no tingling. No decrease sensation. Risk factors. History of DVT postsurgery past medical history prescription medication use allergies reviewed. Denies chance of is not breast-feeding. .Patient presents with: Pain: Left shoulder/blade pain x 2 weeks PAST MEDICAL HISTORY Diagnosis Date Acute deep vein thrombosis (DVT) of popliteal vein of right lower extremity ([facility]) 02/2022 Allergic rhinitis, unspecified 12/16/2018 Chlamydia 16 YO Encounter for insertion of mirena IUD 12/24/2021 Ex-smoker 12/16/2018 Started at age 19 up to 1/2-1 PPD, quit 05/2018 SAMAN (generalized anxiety disorder) 12/16/2018 [facility]. History of gastroesophageal reflux (GERD) 12/16/2018 Obesity, Class III, BMI 40-49.9 (morbid obesity) ([facility]) 03/09/2018 Psoriasis 12/16/2018 Vitamin D deficiency 12/16/2018 PAST SURGICAL HISTORY Procedure Laterality Date CYST EXCISION 2016 right leg D&C, DIAG AND/OR THERAPEUTIC 2019 EXTRACTION, ERUPTED TOOTH OR EXPOSED ROOT (ELEVATION AND/OR FORCEPS REMOVAL) 2012 LOCAL REVISION OF ILESTOMY 02/24/2022 ALLERGIES Tree Nuts and Morphine MEDICATIONS tirzepatide (MOUNJARO) 15 mg/0.5 mL pen injector Inject 15 mg subcutaneously one time a week. Phentermine HCl 37.5 mg tablet Take 1 tablet by mouth once daily for 90 days. BMI 40.74 FAMILY HISTORY Problem Relation Age of Onset Diabetes Father Hypertension Father Heart disease Mother arythmia Kidney Disease Maternal Grandmother other (lupus) Maternal Grandmother Diabetes Paternal Grandfather Hypertension Paternal Grandfather Colon Cancer Paternal Grandmother late 50's Coronary Artery Disease Paternal Grandmother 40's Diabetes Paternal Grandmother Hypertension Paternal Grandmother Cervical Cancer Paternal Aunt Uterine Cancer Paternal Aunt Thyroid Cancer Paternal Aunt Alzheimer's Disease No Family History Breast Cancer No Family History Ovarian cancer No Family History Hyperlipidemia No Family History Thyroid No Family History Seizures No Family History Stroke No Family History Social History Tobacco Use Smoking status: Former Years: 4.00 Types: Cigarettes Smokeless tobacco: Never Tobacco comments: 5 to 6 cigarettes Vaping Use Vaping Use: Never used Substance Use Topics Alcohol use: No Drug use: No BP 100/64 Pulse 97 Temp 36.8 C (98.2 F) Resp 21 Wt 97.1 kg (214 lb) LMP 11/03/2022 (ExactDate) SpO2 95% BMI 37.91 kg/m Hr 80 100% Review of Systems Constitutional: Negative for chills, fever and malaise/fatigue. HENT: Negative for congestion, ear discharge, ear pain, sinus pain and sore throat. Eyes: Negative for blurred vision, pain, discharge and redness. Respiratory: Negative for cough, hemoptysis, sputum production, shortness of breath, wheezing and stridor. Cardiovascular: Negative for chest pain. Gastrointestinal: Negative for abdominal pain, diarrhea, nausea and vomiting. Musculoskeletal: Positive for joint pain. Negative for myalgias. Skin: Negative for itching and rash. Neurological: Negative for dizziness and headaches. Objective Physical Exam Constitutional: General: She is not in acute distress. Appearance: She is not diaphoretic. HENT: Head: Normocephalic. Eyes: Conjunctiva/sclera: Conjunctivae normal. Pupils: Pupils are equal, round, and reactive to light. Cardiovascular: Rate and Rhythm: Normal rate and regular rhythm. Heart sounds: Normal heart sounds. Pulmonary: Effort: Pulmonary effort is normal. No tachypnea, accessory muscle usage or respiratory distress. Breath sounds: Normal breath sounds. No stridor. No wheezing, rhonchi or rales. Abdominal: General: There is no distension. Palpations: Abdomen is soft. Tenderness: There is no abdominal tenderness. There is no guarding or rebound. Musculoskeletal: Arms: Cervical back: Normal range of motion and neck supple. No rigidity or tenderness. Comments: Pain with palpation to highlighted area. Pain reproducible with movements. No erythema edema. No redness. No breaks in skin. No swelling. No deformities noted on palpation. Lymphadenopathy: Cervical: No cervical adenopathy. Skin: General: Skin is warm and dry. Neurological: Mental Status: She is alert and oriented to person, place, and time. ASSESSMENT/PLAN: 1. Acute pain of left shoulder - ICD9: 719.41, ICD10: M25.512 - XR SHOULDER GENERAL 3V OR MORE AP/TRUE AP/OTHER LEFT IMPRESSION: Negative 3 views of the left shoulder. No abnormal findings noted on x-ray. Suspicious of muscle related discomfort. Low suspicion for PE.Pain is reproducible. Hemodynamically stable. No pleuritic chest pain shortness of breath or hemoptysis. Red flags prompt reevaluation discussed. Patient was educated on supportive therapies. Patientwill follow up with primary care provider as needed. Patient was instructed to immediately proceed to emergency room for any new, worsening, or symptoms lasting longer than anticipated. The patient'sclinical presentation is otherwise unremarkable at this time. Based on exam and clinical finding, the patient is stable for discharge. Plan of care was discussed with patient. Patient verbalizes under standing and agrees to plan of care. This note was generated using Zentact software. It may contain errors in wording, punctuation, or spelling. Roverto Ag APRN.YADI documented in this encounterMem[facility] History of Present illness Narrative* Marietta Kitchen APRN.CNP - 02/11/2023 9:03 AM EDT This is an Express Care eVisit note for Leelee Zamora eVisit/Questionnaire reviewed The chief complaint for the visit - Patient presents with: Vaginal Problem Recommendations/Treatment plan - Rx as below plus self care. See My Chart Message to patient. Recommendation for follow up - PRN The following approved medication requests have been transmitted electronically. Requested Prescriptions Signed Prescriptions Disp Refills fluconazole (DIFLUCAN) 150 mg tablet 1 tablet 0 Sig: Take 1 tablet by mouth one time only for 1 dose. Marietta Kitchen APRN.CNP Total time spent on e-Visit: 8 minutes documented in this encounterMemorial [facility]-2023 Miscellaneous Notes* Telephone Encounter - Jazmin Thompson Ma - 02/11/2023 8:41 AM EDT Patient was called and offered to schedule appointment with pattern technician viral office and [place]. Aware no treatment unless seen Jazmin Thompson Ma documented in this encounterMemorial [facility]03-30-2023 Miscellaneous Notes* Telephone Encounter - Flor Cole - 01/08/2023 1:59 PM EDT Please fax rx to: [facility] F: [phone] Phone: [phone] documented in this encounterMemorial [facility]03-15-2023 Miscellaneous Notes* Telephone Encounter - Roverto Diane MD - 12/24/2022 7:33 PM EDT Patient left without being seen. Patient without Hx of asthma. Script denied. * Telephone Encounter - Teresa Bynum LPN - 12/24/2022 4:27 PM EDT Please discuss refill below with provider. Pt has an apt tonight. Teresa Judith Bynum LPN Patient has been identified by name and date of : Yes, Provider Dr. Diane Date 12/24/22 Time 4:27 pm Pharmacy phones for refill(s): Requested Prescriptions Pending Prescriptions Disp Refills VENTOLIN HFA 90 mcg/actuation inhaler [Pharmacy Med Name: VENTOLIN HFA 90 MCG INHALER] 18 Each Sig: INHALE 2 PUFFS BY MOUTH EVERY 6 HOURS NEEDED DIRECTED Date of last office visit in primary care: 12/01/22 apt 12/24/22 Last 2 Encounter Wt Readings: Date: Wt: 12/24/2022 104.3 kg (230 lb) 12/10/2022 108.1 kg (238 lb 6.4 oz) Previous labs/tests for medication: Not applicable Please advise. Thank you. Teresa Bynum LPN documented in this encounterMemorial [facility]03-15-2023 History of Present illness Narrative* Christofer Braswell RD - 12/24/2022 3:34 PM EDT Diet: virtually counseled by SHOAIB today Reports quality of diet as healthy. Current nutrition plan includes Low carbohydrate diet and high protein Currently f/b OM Diet barriers/challenges since beginning AOM: low energy Diet changes made since beginning AOM: less soda Since last assessment, patient has been increasing activity with light weight training and functional exercise and following a low carbohydrate/high protein diet, along with use of Phentermine and mounjaro, which should support weight loss efforts. Christofer Braswell RD, LD * Fabian Brasher MD - 12/24/2022 2:35 PM EDT Images from the original note were not included. BMI Obesity Medicine Pharmacotherapy [facility] Visit December 24, 2022 2:35 PM Virtual Visit (Audio/Visual)I have discussed the nature of this visit with the patient which will occur via [facility] (Phone, Virtual Visit) and she agrees to proceed with this interaction. Patient Summary: Leelee Zamora is 27 year old who [facility] for follow-up evaluation of obesity and related complications. In previous visits we have outlined an individualized lifestyle intervention including a personalized nutrition recommendations and physical activity optimization. Currently on an anti-obesity medication below. Virtual encounter done together with the assistance of Christofer Braswell RDN Last Wt 12/24/22 : 104.3 kg (230 lb) 5% weight loss = 218 lbs, 10% weight loss = 207 lbs Interval History: PT specifies the following items as new or significant updates since the last appointment: No complaints Reports weight is decreased since the last visit. Has questions about 23 and Me results - mixed genetic for hemochromatosis, genetic risk of elevatedsaturated fat. Obesity Medications: Phentermine , 10/29/22, 255lbs - appetite reduction, taking 1/2 dose - decreased binge eating -- grinding teeth at night, taking biotin Tirzepatide (Mounjaro) 07/01/22, 271lb - reduced appetite. Doesn't know if helpful for cravings - no SE , sulfa burps on occasion, mainly with [place] food -- reports injection site reactions with 10mg, no change with 15mg Diet: virtually counseled by RDN today Exercise: Change in physical activity: daily toning ?Sleep: Change in sleep No: ??Stress: none Review of Systems and Social History reviewed in [facility] I have confirmed and edited as necessary, the PFSH and ROS obtained by others. The physical systems reviewed reveal no pathological symptoms that are pertinent to this visit Physical Exam:(if done, performed via video enabled technology) NAD Results: reviewed labs with the patient. Impression: Leelee Zamora is a 27 year old year old with Body mass index is 40.74 kg/m . Obesity related complications as above, improving with weight loss Weight decreased Currently taking Phentermine., good response. Continues on Mounjaro Lifestyle improved, more exercise Motivated. Plan: -- continue current lifestyle -- Continue Phentermine and tirzepatide 15mg/w -- followup with PCP/23&Me regarding genetic results.Not related to body weight or current medications -- f/u with RD at BMI -- return to clinic/virtually in 1-3 months pending [place] state law Fabian Brasher MD MSc Medical Decision Making: Problems: Moderate: 2+ stable chronic illnesses Data: Unique test(s) ordered: 1 Risk: Moderate: Drug management Medical Decision Making Level: 4 - Moderate documented in this encounterMemorial [facility]03-15-2023 Instructions* Patient Instructions* Fabian Brasher MD - 12/24/2022 2:42 PM EDT Thank you again for participating in this virtual shared medical appt (SMA) If interested, please followup to schedule another SMA with Dr. Brasher. If not, please schedule an individual appt as discussed Continue on phentermine and Mounjaro as discussed documented in this encounterMemorial [facility]03-15-2023 Nurse Note* Maria A Tinsley MA - 12/24/2022 10:39 AM EDTSummary: Phentermine SMA Patient following up on Phentermine. Last seen 11/26/22 with a wt of 239 pounds. Patient has lost 9 pounds since last appointment. Patient denies that she has had any side effects or sleep changes. Patient reports that she is doing daily stretches and toning. Patient states that she has some decrease in her cravings and appetite. She reports she feels full from all the water she is drinking. Patient isn't seeing a crossbow maker. This is patient's 3rd refill. Maria A Tinsley MA documented in this encounterMemorial [facility]03-10-[facility]23 History of Present illness Narrative* Ngoc Dukes, OD - 12/19/2022 4:06 PM EST 1. Diplopia 2. 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 Meibomian gland dysfunction (MGD) of upper and lower lids of both eyes Reports mild tenderness-monitor Follow-up with me in 6 weeks Continue follow-up with neurology Ngoc Dukes, OD December 19, 2022 4:06 PM documented in this encounterMemorial [facility]03-08-2023 Instructions* Patient Instructions* Parker Bergeron MD - 12/17/2022 2:05 PM EST Images from the original note were not included. documented in this encounterMemorial [facility]03-08-2023 History of Present illness Narrative* Parker Bergeron MD - 12/17/2022 1:59 PM EST Assessment and Plan 1. Diplopia -reports seeing images with a shadow next to them (horizontal diplopia) both at distance and near, equally -exam with full movement. 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 Meibomian gland dysfunction (MGD) of upper and lower lids of both eyes -with tenderness of eyelids -may be contributing to symptoms? -reports having been checked for thyroid before - within normal limits 3. Tortuous retinal vasculature both eyes -denies history of elevated blood pressure Plan: -hot compresses twice a day both eyes -erythromycin ointment at bedtime both eyes -Dr. Dukes for alignment evaluation (possible prisms?) -continue follow-up neurology I have confirmed and edited as necessary the relevant ophthalmic history, ROS, and the neuro exam findings as obtained by others. I have seen and examined Leelee Zamora. I have discussed the case and the management of this patient's care with the Resident/Fellow, if applicable. I also have reviewed and agree with the assessment and plan as stated above and agree withall of its relevant components. Parker Bergeron MD December 17, 2022 1:59 PM documented in this encounterMemorial [facility]03-01-2023 History of Present illness Narrative* Maryann Matias PA-C - 12/10/2022 1:40 PM EST This note was created using OpenZineter. Subjective Leelee Zamora is a 27 year old female. HPI Patient presents with cough, chest congestion loss of voice and shortness of breath over the past 5days. She has had nasal congestion and runny nose as well. No fever. No vomiting or diarrhea. Denies sick contacts. No home COVID test done. Denies history of asthma. She is not a smoker. Review of Systems Constitutional: Negative. HENT: Positive for congestion, rhinorrhea and voice change. Negative for sinus pressure, sinus painand sore throat. Respiratory: Positive for cough, chest tightness and shortness of breath. Cardiovascular: Negative. Gastrointestinal: Negative. Genitourinary: Negative. Musculoskeletal: Negative. Neurological: Negative. All other systems reviewed and are negative. PAST MEDICAL HISTORY Diagnosis Date Acute deep vein thrombosis (DVT) of popliteal vein of right lower extremity ([facility]) 02/2022 Allergic rhinitis, unspecified 12/16/2018 Chlamydia 16 YO Encounter for insertion of mirena IUD 12/24/2021 Ex-smoker 12/16/2018 Started at age 19 up to 1/2-1 PPD, quit 05/2018 SAMAN (generalized anxiety disorder) 12/16/2018 [facility]. History of gastroesophageal reflux (GERD) 12/16/2018 Obesity, Class III, BMI 40-49.9 (morbid obesity) ([facility]) 03/09/2018 Psoriasis 12/16/2018 Vitamin D deficiency 12/16/2018 Current Outpatient Medications Medication Sig Dispense Refill Phentermine HCl 37.5 mg tablet Take 1 tablet by mouth once daily for 30 days. 30 tablet 0 tirzepatide (MOUNJARO) 15 mg/0.5 mL pen injector Inject 15 mg subcutaneously one time a week. 2 mL 2 predniSONE (DELTASONE) 20 mg tablet Take 2 tablets by mouth once daily for 5 days. 10 tablet 0 benzonatate (TESSALON PERLES) 100 mg capsule Take 2 capsules by mouth three times daily as needed. 30 capsule 0 albuterol HFA (PROAIR HFA) 90 mcg/actuation inhaler Inhale 2 Puffs as instructed every 6 hours as needed. 1 Each 0 No current facility-administered medications for this visit. PAST SURGICAL HISTORY Procedure Laterality Date CYST EXCISION 2016 right leg D&C, DIAG AND/OR THERAPEUTIC 2019 EXTRACTION, ERUPTED TOOTH OR EXPOSED ROOT (ELEVATION AND/OR FORCEPS REMOVAL) 2012 LOCAL REVISION OF ILESTOMY 02/24/2022 FAMILY HISTORY Problem Relation Age of Onset Diabetes Father Hypertension Father Heart disease Mother arythmia Kidney Disease Maternal Grandmother other (lupus) Maternal Grandmother Diabetes Paternal Grandfather Hypertension Paternal Grandfather Colon Cancer Paternal Grandmother late 50's Coronary Artery Disease Paternal Grandmother 40's Diabetes Paternal Grandmother Hypertension Paternal Grandmother Cervical Cancer Paternal Aunt Uterine Cancer Paternal Aunt Thyroid Cancer Paternal Aunt Alzheimer's Disease No Family History Breast Cancer No Family History Ovarian cancer No Family History Hyperlipidemia No Family History Thyroid No Family History Seizures No Family History Stroke No Family History Social History Tobacco Use Smoking status: Former Years: 4.00 Types: Cigarettes Smokeless tobacco: Never Tobacco comments: 5 to 6 cigarettes Vaping Use Vaping Use: Never used Substance Use Topics Alcohol use: No Drug use: No Objective BP 120/78 Pulse 95 Temp 37 C (98.6 F) Resp 21 Wt 108.1 kg (238 lb 6.4 oz) LMP 11/03/2022 (Exact Date) SpO2 100% BMI 42.23 kg/m Physical Exam Vitals reviewed. Constitutional: Appearance: Normal appearance. HENT: Head: Normocephalic and atraumatic. Right Ear: Tympanic membrane, ear canal and external ear normal. Left Ear: Tympanic membrane, ear canal and external ear normal. Nose: Congestion present. Mouth/Throat: Mouth: Mucous membranes are moist. Pharynx: Oropharynx is clear. Cardiovascular: Rate and Rhythm: Normal rate and regular rhythm. Heart sounds: Normal heart sounds. Pulmonary: Effort: Pulmonary effort is normal. Breath sounds: Normal breath sounds. Musculoskeletal: Cervical back: Neck supple. Skin: General: Skin is warm and dry. Findings: No rash. Neurological: Mental Status: She is alert. Assessment and Plan ASSESSMENT/PLAN: 1. Bronchitis - ICD9: 490, ICD10: J40 Chest x-ray clear. I feel she does have a viral bronchitis. Given prednisone, Tessalon and albuterol inhaler. Follow-up with PCP if not improving. Red flags for ER care discussed. Covid testing declined. - XR CHEST 2V FRONTAL/LAT Maryann Matias PA-C documented in this encounterMemorial [facility]03-01-2023 Instructions* Patient Instructions* Maryann Matias PA-C - 12/10/2022 12:33 PM EST Maryann Matias PA-C ACUTE BRONCHITIS: You have acute bronchitis. This means the airway passages in your lungs are inflamed. Bronchitis istypically caused by viruses. Inhaling cigarette smoke will always make it worse. Exposure to irritating chemicals or second hand smoke as well as allergies can contribute to bronchitis. Repeat episodes of bronchitis may cause lifelong lung problems. Acute bronchitis is usually treated with rest, fluids, cough medicine, and possibly antibiotics or inhaled medicine to open up the small airways. It is very important that you avoid smoke and drink increased amounts of fluids. A cool air vaporizer can help thin bronchial secretions. This makes it easier to cough and clear your chest. If you are a cigarette smoker, consider using nicotine gum or skin patches to help you withdraw. Recovery from bronchitis is often slow, but you should start feeling better after 2-3 days of treatment. Please call your doctor or return here if you have any of the following symptoms: Increased fever, chills, or chest pain. Severe shortness of breath or bloody sputum. Increasing pain, severe headache, or toothache. Nausea, vomiting, or unusual drowsiness. documented in this encounterMemorial [facility]02-24-2023 Instructions* Patient Instructions* Pj James MD - 12/05/2022 9:55 AM EST See the lunchroom attendant Send me a message after you have seen them, I will review their note and decide if any further testing is needed. documented in this encounterMemorial Health [facility]02-24-2023 History of Present illness Narrative* Pj James MD - 12/05/2022 9:30 AM EST HPI: This is Ms. 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 Seen by optical worker doctor [place]. Not sure if they are opthometrist or opthalmologist. Pdmp 310 Phentermine current Oxycodone recurrent, not currently taking PMH: PAST MEDICAL HISTORY PAST MEDICAL HISTORY Diagnosis Date Acute deep vein thrombosis (DVT) of popliteal vein of right lower extremity ([facility]) 02/2022 Allergic rhinitis, unspecified 12/16/2018 Chlamydia 16 YO Encounter for insertion of mirena IUD 12/24/2021 Ex-smoker 12/16/2018 Started at age 19 up to 1/2-1 PPD, quit 05/2018 SAMAN (generalized anxiety disorder) 12/16/2018 [facility]. History of gastroesophageal reflux (GERD) 12/16/2018 Obesity, Class III, BMI 40-49.9 (morbid obesity) ([facility]) 03/09/2018 Psoriasis 12/16/2018 Vitamin D deficiency 12/16/2018 Medications: CURRENT MEDICATIONS Current Outpatient Medications Medication Sig Dispense Refill tirzepatide (MOUNJARO) 15 mg/0.5 mL pen injector Inject 15 mg subcutaneously one time a week. 2 mL 2 Phentermine HCl 37.5 mg tablet Take 1 tablet by mouth once daily. 28 tablet 0 EPINEPHrine (EPIPEN 2-ROSIE) 0.3 mg/0.3 mL auto-injector Inject 0.3 mL intramuscularly as needed. 2 Each 1 No current facility-administered medications for this visit. Allergies: ALLERGIES ALLERGIES Allergen Reactions Tree Nuts Rash Morphine Other: See Comments Tightness in chest Social History: SOCIAL HISTORY Social History Tobacco Use Smoking status: Former Years: 4.00 Types: Cigarettes Smokeless tobacco: Never Tobacco comments: 5 to 6 cigarettes Vaping Use Vaping Use: Never used Substance Use Topics Alcohol use: No Drug use: No Family History: FAMILY HISTORY FAMILY HISTORY Problem Relation Age of Onset Diabetes Father Hypertension Father Heart disease Mother arythmia Kidney Disease Maternal Grandmother other (lupus) Maternal Grandmother Diabetes Paternal Grandfather Hypertension Paternal Grandfather Colon Cancer Paternal Grandmother late 50's Coronary Artery Disease Paternal Grandmother 40's Diabetes Paternal Grandmother Hypertension Paternal Grandmother Cervical Cancer Paternal Aunt Uterine Cancer Paternal Aunt Thyroid Cancer Paternal Aunt Alzheimer's Disease No Family History Breast Cancer No Family History Ovarian cancer No Family History Hyperlipidemia No Family History Thyroid No Family History Seizures No Family History Stroke No Family History ROS: A complete review of systems was performed. All systems negative other than those mentioned inHPI. Physical Exam: Vitals: LMP 11/03/2022 (Exact Date) General appearance: no acute distress. Neurological Exam: MSE: Alert and oriented to person, place, and time. Speech is fluent without dysarthria or aphasia.Recall is intact to recent and remote events. Attention and concentration are intact. Fund of knowledge is intact. CN: Pupils equally round and reactive to light. Extraoccular muscles intact. Visual rosales full. Facial sensation deferred d/t covid. Facial muscles symmetric. Hearing intact to voice. Tongue/palate deferred d/t covid. Shoulder shrug 5/5 bilaterally. MSK: Normal bulk and tone throughout. Deltoid Triceps Biceps Wrist ext. Hand intrinsic Hip flexion Knee flexion Knee Ext. Sahil. Flex Pl. flex Right 5 5 5 5 5 5 5 5 5 5 Left 5 5 5 5 5 5 5 5 5 5 Sensation: Intact to light touch, pinprick, and vibration throughout. Reflexes: R L Biceps 2 2 Triceps 2 2 Brachioradialis 2 2 Patellar 2 2 Achilles 2 2 Toes downgoing bilaterally Cerebellar: Intact finger to nose bilaterally. Gait: Normal. Labs: WBC Date Value Ref Range Status 04/24/2022 7.49 3.70 - 11.00 k/uL Final Hemoglobin Date Value Ref Range Status 04/24/2022 11.6 11.5 - 15.5 g/dL Final Hematocrit Date Value Ref Range Status 04/24/2022 37.8 36.0 - 46.0 % Final MCV Date Value Ref Range Status 04/24/2022 81.8 80.0 - 100.0 fL Final Platelet Count Date Value Ref Range Status 04/24/2022 331 150 - 400 k/uL Final Sodium Date Value Ref Range Status 09/10/2022 137 136 - 144 mmol/L Final Potassium Date Value Ref Range Status 09/10/2022 4.3 3.7 - 5.1 mmol/L Final Chloride Date Value Ref Range Status 09/10/2022 104 97 - 105 mmol/L Final CO2 Date Value Ref Range Status 09/10/2022 23 22 - 30 mmol/L Final BUN Date Value Ref Range Status 09/10/2022 8 7 - 21 mg/dL Final Creatinine Date Value Ref Range Status 09/10/2022 0.62 0.58 - 0.96 mg/dL Final Calcium, Total Date Value Ref Range Status 09/10/2022 9.7 8.5 - 10.2 mg/dL Final Albumin Date Value Ref Range Status 09/10/2022 4.2 3.9 - 4.9 g/dL Final Protein, Total Date Value Ref Range Status 09/10/2022 7.3 6.3 - 8.0 g/dL Final AST Date Value Ref Range Status 09/10/2022 17 13 - 35 U/L Final ALT Date Value Ref Range Status 09/10/2022 21 7 - 38 U/L Final Alkaline Phosphatase Date Value Ref Range Status 09/10/2022 80 34 - 123 U/L Final Bilirubin, Total Date Value Ref Range Status 09/10/2022 0.9 0.2 - 1.3 mg/dL Final Anion Gap Date Value Ref Range Status 09/10/2022 10 9 - 18 mmol/L Final TSH Date Value Ref Range Status 04/24/2022 1.760 0.270 - 4.200 mIU/L Final Comment: If the patient is , TSH reference range varies by gestational period: First Trimester (weeks 9-12): 0.180-2.990 mIU/L Second Trimester: 0.110-3.980 mIU/L Third Trimester: 0.480-4.710 mIU/L Benson Denise et al. A Practical Approach for the Verifications and Determination of Site- and Trimester-Specific Reference Intervals for Thyroid Function tests in . Thyroid, 2019:29:3:412-420.Yo Campos et al. 2017 Guidelines of the [place] Thyroid Association for the Diagnosis and Management of Thyroid Disease during and the . Thyroid, 2017:27:3:315-389. Free T4 Date Value Ref Range Status 12/16/2018 1.2 0.9 - 1.7 ng/dL Final Hemoglobin A1C Date Value Ref Range Status 09/10/2022 5.1 4.3 - 5.6 % Final Comment: [place] [employer] Association guidelines indicate that patients with HgbA1c in the range 5.7-6.4% are at increased risk for development of diabetes, and intervention by lifestyle modification may be beneficial. HgbA1c greater or equal to 6.5% is considered diagnostic of diabetes. CRP Date Value Ref Range Status 12/16/2018 0.8 <0.9 mg/dL Final ZEKE Date Value Ref Range Status 12/16/2018 Negative Negative Final Comment: Normal range : negative at <1:80 serum dilution. Approximately 6% of patients with connective tissue diseases with low positive EIA values are negative by IFA. Recommend follow-up with specific antinuclear antibodies if clinically indicated. Assessment/Plan : Leelee presents with 1 month history of blurry vision in the lateral aspect of her right with mono ocular vision, no symptoms with monocular vision of the left eye. There is no history of diplopia. She was referred by an outside senior application software engineer for evaluation for 4th nerve palsy. We discussed that she has no abnormalities apparent on exam of extraocular movements. Additionally she has no symptoms of diplopia, which would be atypical principal symptoms of 4th nerve palsy. As such I am not concerned for 4th nerve palsy. Regarding her blurry vision in the right eye, typically this would be caused by an eye issue affecting the eye or optic nerve, or retina as her symptoms are monocular. As such I referred her to a [facility] lunchroom attendant for further ophthalmologic exam and evaluation. She raised the question of whether her symptoms could be related to pituitary gland abnormality or optic chiasm issue, typically this would cause visual field problems affecting both eyes. As such, Iwould prefer that she has ophthalmologic exam first prior to ordering any MRI studies. She will contact me once her ophthalmologic exam is complete and I will review their note to assessfor the need for any future neuroimaging. documented in this encounterMem[facility] History of Present illness Narrative* Shilpa Winters MD - 12/04/2022 7:31 AM EST Leelee Zamora 1995 REFERRING PHYSICIAN: Cooper Gastelum APRN.* CHIEF COMPLAINT: Consult (hernia) HPI: The patient is a 27 year old female presents with complaint of RUQ abdominal wall pain and noting protrusion in the area. She has had previous stoma site and periumbilical hernia repair with coverage of both areas with large mesh at in September 2022. She is referred for evaluation of possible recurrence. She has a complicated surgical history. I have reviewed her medical records from outside hospitals.She had difficulty with labor with her baby and sustained fourth degree laceration. 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 Complicated by developing C diff colitis. Underwent second repair and was told that vaginal repair was too tight. The second repair was followed by ileostomy creation to allow the area to rest. She had takedown ileostomy February 2021. During the above, she had complications of the following: intracardiac thrombus, left arm DVT, urinary retention. The above surgeries were done at [facility] and . She now presents with complaint of RUQ abdominal pain and concern for recurrence of hernia. She hasnoted this about two months ago. She feels constipated - normally has a bowel movement 5-6 times per day, but presently is down to1-2 bowel movements per day. She states that she has to squat to have bowel movement in order to evacuate and that she has to strain and has prolonged sitting on the toilet. She states that her stools are hard. This has been going on for the past month or two. She denies blood in her stools. She notes recurrent vaginal yeast infections. She denies urination difficulties. PAST MEDICAL HISTORY Diagnosis Date Acute deep vein thrombosis (DVT) of popliteal vein of right lower extremity ([facility]) 02/2022 Allergic rhinitis, unspecified 12/16/2018 Chlamydia 16 YO Encounter for insertion of mirena IUD 12/24/2021 Ex-smoker 12/16/2018 Started at age 19 up to 1/2-1 PPD, quit 05/2018 SAMAN (generalized anxiety disorder) 12/16/2018 [facility] History of gastroesophageal reflux (GERD) 12/16/2018 Obesity, Class III, BMI 40-49.9 (morbid obesity) ([facility]) 03/09/2018 Psoriasis 12/16/2018 Vitamin D deficiency 12/16/2018 PAST SURGICAL HISTORY Procedure Laterality Date CYST EXCISION 2016 right leg D&C, DIAG AND/OR THERAPEUTIC 2019 EXTRACTION, ERUPTED TOOTH OR EXPOSED ROOT (ELEVATION AND/OR FORCEPS REMOVAL) 2012 LOCAL REVISION OF ILESTOMY 02/24/2022 Current Outpatient Medications Medication Sig Phentermine HCl 37.5 mg tablet Take 1 tablet by mouth once daily for 30 days. tirzepatide (MOUNJARO) 15 mg/0.5 mL pen injector Inject 15 mg subcutaneously one time a week. ALLERGIES: Tree Nuts and Morphine PERSONAL HISTORY: Social History Tobacco Use Smoking status: Former Years: 4.00 Types: Cigarettes Smokeless tobacco: Never Tobacco comments: 5 to 6 cigarettes Vaping Use Vaping Use: Never used Substance Use Topics Alcohol use: No Drug use: No FAMILY HISTORY Problem Relation Age of Onset Diabetes Father Hypertension Father Heart disease Mother arythmia Kidney Disease Maternal Grandmother other (lupus) Maternal Grandmother Diabetes Paternal Grandfather Hypertension Paternal Grandfather Colon Cancer Paternal Grandmother late 50's Coronary Artery Disease Paternal Grandmother 40's Diabetes Paternal Grandmother Hypertension Paternal Grandmother Cervical Cancer Paternal Aunt Uterine Cancer Paternal Aunt Thyroid Cancer Paternal Aunt Alzheimer's Disease No Family History Breast Cancer No Family History Ovarian cancer No Family History Hyperlipidemia No Family History Thyroid No Family History Seizures No Family History Stroke No Family History The review of systems data was entered by the nurse and reviewed by ri Nursing Notes: Lesley Alberto LPN 12/02/2022 2:00 PM Signed REVIEW OF SYSTEMS: General: The patient denies fatigue, NOTES weight loss, denies weight gain, denies feeling hot, anddenies feelings of cold. Eyes: The patient denies glaucoma, denies eye injury/surgery, wears glasses or contacts. Ear/Nose/Throat: The patient NOTES allergies, NOTES hayfever, denies ear infections, and denies bloody noses. Cardiovascular: The patient denies chest pain, denies heart disease, denies high blood pressure,denies cardiac stent, denies prior heart attack, denies irregular heart beat, denies high cholesterol, denies poor circulation, denies heart failure, other cardiac issues, denies claudication, denies cold feet, denies peripheral arterial stent. Respiratory: The patient denies tuberculosis, denies pneumonia, denies frequent cough, denies pulmonary embolism, denies shortness of breath, and denies coughing up blood. Gastrointestinal: The patient denies difficulty swallowing, denies acid reflux, denies ulcers, denies vomiting, denies jaundice/hepatitis, denies gallbladder problems, denies black or tarry stools, denies hemorrhoids, denies bleeding from rectum, denies diverticulitis, denies constipation, denies diarrhea, denies loss of stool control, and denies hernias. Kidney/Bladder: The patient denies kidney stones, denies urine infections, and denies bloody urine. Skin: The patient denies a history of skin cancer, denies bleeding/changing moles, and denies a history of skin rash. Neurologic: The patient denies a history of epilepsy/convulsions, denies headaches, denies head/spinal injuries, and denies stroke/TIA. Psychiatric: The patient denies psychiatric medications, denies depression, and denies voices, denies substance abuse. Endocrine: The patient denies thyroid disorders, denies diabetes, and NOTES hormonal problems. Hematologic: The patient denies a history of bruising, denies bleeding, and denies anemia, NOTES blood clots. Infections: The patient denies a history of measles and mumps, denies rheumatic fever, and denies sexually transmitted diseases. Musculoskeletal: The patient denies back pain/injury, denies back problems, denies sciatica, NOTES knee/foot trouble, denies arthritis, or denies gout. When was patient's last Mammogram screening? N/A Last Colonoscopy: n/a Lesley Alberto LPN PHYSICAL EXAMINATION: General: The patient is 27 year old female, well nourished, well hydrated in no acute distress. Thepatient is oriented to time, place, and person. VITALS: Blood pressure 130/88, pulse 85, temperature 36.1 C (97 F), height 160 cm (5' 3), weight 110.8 kg (244 lb 3.2 oz), last menstrual period 11/03/2022, SpO2 100 %. Body mass index is 43.26 kg/m. Head - Normocephalic. EOM intact with sclera clear and no icterus noted. Wearing glasses. Neck - supple with no jugular venous distention noted. Trachea is midline. Lungs - clear to auscultation. Normal breath sounds. No rales/rhonchi/wheezing noted. No labored breathing noted, such as retractions. No cough heard. Heart - normal S1 and S2 auscultated. No rubs/clicks/murmurs noted. Regular rate. Abdomen - soft and benign. Patient points to RUQ abdominal wall just superior lateral to ileostomy site - no palpable hernias noted but suboptimal exam due to patient's body habitus. Well healed midline abdominal incision. Difficult to determine if any masses or organomegaly due to body habitus. Extremities - no calf tenderness noted. No pitting edema noted. Skin - normal skin integrity. Neurological - gait normal, no focal deficits noted. Psych - calm and appropriate Assessment IMPRESSION: RUQ abdominal wall pain, possible hernia PLAN: I have discussed the above with the patient. Because of patient's complex history, will obtain CT scan for evaluation and it can determine if any hernia is present. I have offered review of the CT scan after it is done, patient agrees. The patient acknowledges the above I have answered all questions to the patient s satisfaction and the patient has no further questions. I have confirmed and edited as necessary, the PFSH and ROS obtained by others. Consultation requested by Cooper Gastelum for an opinion regarding patient's RUQ abdominal wall pain. My final recommendations will be communicated back to the requesting physician by way of shared Medical record or letter to requesting physician via [place] mail. . Diagnoses: (K43.9) Hernia of abdominal wall Return to Clinic: The patient will follow up with me after CT scan. I spent a total of 41 minutes on the date of the service which included preparing to see the patient with review of any pertinent laboratory studies/radiological imaging/medical records from other medical facilities, [id number] patient care, obtaining oral medical history from the patient in thisencounter, performing a medically appropriate examination, counseling and educating the patient/family/caregiver, and ordering and/or scheduling of medications/tests/procedures, and completing appropriate medical documentation. Shilpa Winters MD documented in this encounterMemorial [facility]23 Nurse Note* Lesley AlbertoALEXANDER - 12/02/2022 1:59 PM EST REVIEW OF SYSTEMS: General: The patient denies fatigue, NOTES weight loss, denies weight gain, denies feeling hot, anddenies feelings of cold. Eyes: The patient denies glaucoma, denies eye injury/surgery, wears glasses or contacts. Ear/Nose/Throat: The patient NOTES allergies, NOTES hayfever, denies ear infections, and denies bloody noses. Cardiovascular: The patient denies chest pain, denies heart disease, denies high blood pressure,denies cardiac stent, denies prior heart attack, denies irregular heart beat, denies high cholesterol, denies poor circulation, denies heart failure, other cardiac issues, denies claudication, denies cold feet, denies peripheral arterial stent. Respiratory: The patient denies tuberculosis, denies pneumonia, denies frequent cough, denies pulmonary embolism, denies shortness of breath, and denies coughing up blood. Gastrointestinal: The patient denies difficulty swallowing, denies acid reflux, denies ulcers, denies vomiting, denies jaundice/hepatitis, denies gallbladder problems, denies black or tarry stools, denies hemorrhoids, denies bleeding from rectum, denies diverticulitis, denies constipation, denies diarrhea, denies loss of stool control, and denies hernias. Kidney/Bladder: The patient denies kidney stones, denies urine infections, and denies bloody urine. Skin: The patient denies a history of skin cancer, denies bleeding/changing moles, and denies a history of skin rash. Neurologic: The patient denies a history of epilepsy/convulsions, denies headaches, denies head/spinal injuries, and denies stroke/TIA. Psychiatric: The patient denies psychiatric medications, denies depression, and denies voices, denies substance abuse. Endocrine: The patient denies thyroid disorders, denies diabetes, and NOTES hormonal problems. Hematologic: The patient denies a history of bruising, denies bleeding, and denies anemia, NOTES blood clots. Infections: The patient denies a history of measles and mumps, denies rheumatic fever, and denies sexually transmitted diseases. Musculoskeletal: The patient denies back pain/injury, denies back problems, denies sciatica, NOTES knee/foot trouble, denies arthritis, or denies gout. When was patient's last Mammogram screening? N/A Last Colonoscopy: n/a Lesley Alberto LPN documented in this encounterMemorial [facility]02-20-[facility]23 Instructions* Patient Instructions* Cooper Gastelum APRN.YADI - 12/01/2022 2:28 PM EST Schedule with General surgery documented in this encounterMemorial [facility] History of Present illness Narrative* Cooper Gastelum APRN.CNP - 12/01/2022 2:22 PM EST Chief Complaint Patient presents with: Hernia HPI Leelee Zamora is a 27 year old female who presents here today for concern for hernia. Patient reports that she has had 2 hernias in the past, umbilical and surgical. Patient reports that she has tenderness with palpation to the right of her mesh from previous hernia repair and a intermittent stabbing pain to area. Patient sees a surgeon in [place] but is requesting a second opinion from Dr. Pappas and needs a referral. Past medical history, appointments, medications, allergies reviewed. Previous Medical History PAST MEDICAL HISTORY Diagnosis Date Acute deep vein thrombosis (DVT) of popliteal vein of right lower extremity ([facility]) 02/2022 Allergic rhinitis, unspecified 12/16/2018 Chlamydia 16 YO Encounter for insertion of mirena IUD 12/24/2021 Ex-smoker 12/16/2018 Started at age 19 up to 1/2-1 PPD, quit 05/2018 SAMAN (generalized anxiety disorder) 12/16/2018 [facility]. History of gastroesophageal reflux (GERD) 12/16/2018 Obesity, Class III, BMI 40-49.9 (morbid obesity) ([facility]) 03/09/2018 Psoriasis 12/16/2018 Vitamin D deficiency 12/16/2018 Previous Surgical History PAST SURGICAL HISTORY Procedure Laterality Date CYST EXCISION 2016 right leg D&C, DIAG AND/OR THERAPEUTIC 2019 EXTRACTION, ERUPTED TOOTH OR EXPOSED ROOT (ELEVATION AND/OR FORCEPS REMOVAL) 2012 LOCAL REVISION OF ILESTOMY 02/24/2022 Family History FAMILY HISTORY Problem Relation Age of Onset Diabetes Father Hypertension Father Heart disease Mother arythmia Kidney Disease Maternal Grandmother other (lupus) Maternal Grandmother Diabetes Paternal Grandfather Hypertension Paternal Grandfather Colon Cancer Paternal Grandmother late 50's Coronary Artery Disease Paternal Grandmother 40's Diabetes Paternal Grandmother Hypertension Paternal Grandmother Cervical Cancer Paternal Aunt Uterine Cancer Paternal Aunt Thyroid Cancer Paternal Aunt Alzheimer's Disease No Family History Breast Cancer No Family History Ovarian cancer No Family History Hyperlipidemia No Family History Thyroid No Family History Seizures No Family History Stroke No Family History Patient Allergies ALLERGIES Allergen Reactions Tree Nuts Rash Morphine Other: See Comments Tightness in chest Current Medications Current Outpatient Medications on File Prior to Visit Medication Sig Phentermine HCl 37.5 mg tablet Take 1 tablet by mouth once daily for 30 days. tirzepatide (MOUNJARO) 15 mg/0.5 mL pen injector Inject 15 mg subcutaneously one time a week. EPINEPHrine (EPIPEN 2-ROSIE) 0.3 mg/0.3 mL auto-injector Inject 0.3 mL intramuscularly as needed. No current facility-administered medications on file prior to visit. Social History Social History Tobacco Use Smoking status: Former Years: 4.00 Types: Cigarettes Smokeless tobacco: Never Tobacco comments: 5 to 6 cigarettes Vaping Use Vaping Use: Never used Substance Use Topics Alcohol use: No Drug use: No Review of Symptoms REVIEW OF SYSTEMS SEE HPI EXAM: BP 118/72 Pulse 96 Resp 16 Wt 110.2 kg (243 lb) LMP 11/03/2022 (Exact Date) BMI 43.05 kg/m General Appearance: Well appearing, alert, in no acute distress, well-hydrated, well nourished.. Abdomen: Positive findings: incisional hernia, obese, tenderness moderate and involuntary guarding RUQ. Health Maintenance List HEPATITIS B(1 of 3 - 3-dose series) Never done COVID-19 VACCINE(1) Never done HEPATITIS C SCREENING Never done HIV SCREENING Never done DTAP,TDAP,TD(1 - Tdap) Never done PAP TESTING Never done INFLUENZA(1) Never done DEPRESSION ASSESSMENT Never done ASSESSMENT/PLAN: 1. Hernia of abdominal wall - ICD9: 553.20, ICD10: K43.9 - CONSULT TO GENERAL SURGERY Cooper Gastelum APRN.HOME VISITOR HOME B[employer] START documented in this encounterMemorial [facility]01-26-[facility] History of Present illness Narrative* Humberto Schultz MD - 11/06/2022 1:48 PM EST Leelee Zamora is a 27 year old female who presents for a consult regarding diagnosis of PCOS. BMI 44 Last visit issues: COLO-VAGINAL FISTULA PRESENT. PLAN TO SEE DR. DARRYL SARGENT [facility] TODAY. ILEOSTOMY REVERSED FEBRUARY 2022. IUD in [address], patient considering future when he fully recovered Subjective: 11/03 NOW LMP PRIOR MENSES SEPT. Current Outpatient Medications on File Prior to Visit Medication Sig tirzepatide (MOUNJARO) 15 mg/0.5 mL pen injector Inject 15 mg subcutaneously one time a week. Phentermine HCl 37.5 mg tablet Take 1 tablet by mouth once daily. EPINEPHrine (EPIPEN 2-ROSIE) 0.3 mg/0.3 mL auto-injector Inject 0.3 mL intramuscularly as needed. No current facility-administered medications on file prior to visit. PAST MEDICAL HISTORY Diagnosis Date Acute deep vein thrombosis (DVT) of popliteal vein of right lower extremity ([facility]) 02/2022 Allergic rhinitis, unspecified 12/16/2018 Chlamydia 16 YO Encounter for insertion of mirena IUD 12/24/2021 Ex-smoker 12/16/2018 Started at age 19 up to 1/2-1 PPD, quit 05/2018 SAMAN (generalized anxiety disorder) 12/16/2018 [facility]. History of gastroesophageal reflux (GERD) 12/16/2018 Obesity, Class III, BMI 40-49.9 (morbid obesity) ([facility]) 03/09/2018 Psoriasis 12/16/2018 Vitamin D deficiency 12/16/2018 PAST SURGICAL HISTORY Procedure Laterality Date CYST EXCISION 2016 right leg D&C, DIAG AND/OR THERAPEUTIC 2019 EXTRACTION, ERUPTED TOOTH OR EXPOSED ROOT (ELEVATION AND/OR FORCEPS REMOVAL) 2012 LOCAL REVISION OF ILESTOMY 02/24/2022 FAMILY HISTORY Problem Relation Age of Onset Diabetes Father Hypertension Father Heart disease Mother arythmia Kidney Disease Maternal Grandmother other (lupus) Maternal Grandmother Diabetes Paternal Grandfather Hypertension Paternal Grandfather Colon Cancer Paternal Grandmother late 50's Coronary Artery Disease Paternal Grandmother 40's Diabetes Paternal Grandmother Hypertension Paternal Grandmother Cervical Cancer Paternal Aunt Uterine Cancer Paternal Aunt Thyroid Cancer Paternal Aunt Alzheimer's Disease No Family History Breast Cancer No Family History Ovarian cancer No Family History Hyperlipidemia No Family History Thyroid No Family History Seizures No Family History Stroke No Family History Social History Tobacco Use Smoking status: Former Years: 4.00 Types: Cigarettes Smokeless tobacco: Never Tobacco comments: 5 to 6 cigarettes Vaping Use Vaping Use: Never used Substance Use Topics Alcohol use: No Drug use: No Objective: BP 116/70 Wt 250 lb 4 oz (113.5kg) LMP 11/03/2022 Patient's last menstrual period was 11/03/2022 (exact date). ALLERGIES Allergen Reactions Tree Nuts Rash Morphine Other: See Comments Tightness in chest GENERAL: pleasant, female in no apparent distress HEENT: Normocephalic, atraumatic, mucus membranes moist and no lesions NEURO: alert and oriented x3 Assessment: 1) G1 04/2021 FORCEPS. 2) 20 LB WEIGHT LOSS IN 6 MOS. 3) MITTELSCHMERZ 4) MIRENA 12/2021, DESIRES REMOVAL SEP 2023 ?? Plan: 1) LOW SPERM COUNT 2) PLAN CYCLE RE-EVAL AND ANNUAL IUD FOLLOW UP 3) 4) Humberto Schultz MD documented in this encounterMemorial [facility]01-18-2023 Instructions* Patient Instructions* Fabian Brasher MD - 10/29/2022 4:23 PM EST Images from the original note were not included. -- IN GENERAL - suggestions based on important of our sleep cycle called circadian rhythm and its influence on our gut microbiota and overall health tragetory 1) EAT MOST OF YOUR FOOD IN AM AND EARLY PM 2) NO EATING AT NIGHT 3) EXERCISE DURING DAY 4) BE CONSISTENT WITH MEAL STRUCTURE ie Meals at same time during the day. -- keep record of your food intake - it is easier for us to understand your eating habits and food preferences, looking into the amounts of protein, carbs, and fat in your diet. Good examples of appsto track calories are [employer] LOSE IT. Some patient have found FOODUCATE to help with decisions around food, however choose apps that best suits you. -- for exercise, you should shoot for a goal of >150 min per week initially. Depending at what level you are starting, that may seem like an unachievable task. However, the best plan is to just begin to walk or bike or do another activity that you like and track your steps per day. You do not need to pay attention to the time, but you do need to try to increase your exercise every 3 weeks. Other strength exercises, using light weights or training bands may also be useful, especially when combined with regular aerobic exercise. Studies have shown that >200min per week is best to maintainweight loss, so that would be the overall end goal. - One option we discussed is to REPLACE one of your meals with a liquid meal or frozen meal. This is easy to start and may help with your weight. 1. Liquid meal replacement (Boost, Ensure, Premier Protein, Slim Fast) 2. Frozen meal (Healthy Choice, Lean Cuisine - sodium under 650mg, can always add veggies to the meal) 3. Powdered meal replacement (I like a plant based meal replacement called Accurate Group Nutrition - can mix w froz berries and almond milk) Frozen Meals aim for 200-400 calories, 15-30 grams protein, 5+ grams fiber, < 50 grams Carbohydrate, <600 mg sodium Frozen Meals Calories Protein (grams) Carbs Frontera Bowls 240-320 9- 33-47 Healthy Choice/Power Bowls 180-350 10-25 20-50 Estefania's (V, GF) 280-400 - 20-50 Smart Made/Smart Ones 150-320 14-26 16-50 Lean Cuisine 250-410 10-20 15-50 Eating Well 240-360 15-25 25-40 LUVO planted 260-430 10-20 16-55 Other Frozen meals: Kashi, Sweet Earth, [employer]'s Reduced Guilt, EVOL, Valdo Murray's Delights, Dr. Ferrara's Protein Drinks Calories Protein (grams) Sugars (grams) EAS Advant Edge Carb Control 110 17 1 Isopure Clear Zero Carb 160 40 0 Muscle Milk light 100-160 15-20 0-1 Agillic Core Power 170 26 5 Orgain Protein Shake* 150 26 2 Premier Protein 160 30 1 Evolve (Vegan)* 160 20 5 Other Protein Shakes: Pure Protein, Ensure High Protein; *Offers plant based, dairy free option Protein Powders Calories (per scoop) Protein (g) Sugars (g) Isopure Zero Carb & Unflavored 105 25 0 Egg And Spice Mixer Whey Protein 100 18 3 Optimum Nutrition 100% whey 120-130 24 1-2 EAS 100% Whey or Soy 120 23 1 Genisoy Protein powder* 110 25 0 Quest 100 23 1 Vidal One Protein powder* 130 25 1 Orgain Protein Powder* 150-160 21 0-1 *Offers plant based, dairy free option Protein Bars Calories Protein (g) Sugars (g) Quest (GF) 190 20 0-1 Power Crunch 140-240 13-20 0-5 NuGo Slim (v) 180 17 1 Simply protein 150 15 1 Orgain Bar 140 10 4 Pure Protein 200 20 2 Think Thin (GF) 230 20 0-1 Preston [employer] Paleo (GF) 180-190 20 2 Oh Yeah (one) (GF) 180-200 20 1 Oatmega 190 14 5 Other Protein bars: RX bar, Orgain, Fit Mirela, Protein One, Alfred protein bar; *GF= Gluten-Free; V= vegan Please start phentermine low dose (1/2 tablet) at breakfast everyday as discussed. We can adjust the dose if needed, that is if you are feeling some side effects you can either stop all together or decrease to 1/4 tablet. But we can review its effect when you return in 1 month. -- Because most studies on this medication in the 1950s and 1960s were only 3 months long, this medication is not approved for treatment of obesity beyond three months. However, if it is effective inhelping you lose weight, I will likely recommend that we continue this medication, under the guidance of [place] state law (see below). -- Please monitor your blood pressure (either purchase BP cuff, or go to pharmacy to check your BP at a local pharmacy). -- Please avoid any stimulants (in the form of caffeinated beverages like coffee, tea, sports drinks) and caution with decongestants. THIS IS A SUMMARY OF OUR DISCUSSION ABOUT THIS MEDICATION. PLEASE READ IT IS IMPORTANT FOR YOUR WEIGHT LOSS PLAN Per [place] state rules, only one month supply of phentermine is provided at a time. You, the patient are responsible for making an appointment to see a provider within 4 weeks (no later than 5 weeks) in order to get a refill of this medication. It is imperative that you get this (and future) phentermine prescriptions within 7 days as pharmacists will NOT refill prescriptions outside this 7 day window per State law. Phentermine can only be prescribed for a 3 month interval. If there is any INTERRUPTION within THISwindow, phentermine will no longer be prescribed for 6 months. After 3 months of therapy there is a6 month break from the medication. You are aware of the following statements per the [facility] pharmacy board rules. 1. Timely refills are required 2. Monthly ( Every 4 weeks) qedt-om-iutv office visits are required 3. ALL prescriptions need to be filled within 7 days of the written prescription 4. Refills need to be done EVEN IF there is medication still available 5. IF you DO NOT REFILL the medication within 4 weeks - YOU MAY NOT CONTINUE THE MEDICATION FOR 6 MONTHS 6. IF YOU MISS AN APPOINTMENT OR MISS A REFILL, please continue working on a healthy lifestyle and keep your appointment with Dr. Brasher. At that visit, we can then discuss other medication options. ? Phentermine (fen ter meen) What are the common names? Adipex-P, Ionamin Why is this medication prescribed? Phentermine was approved by the FDA in 1959 for short term weight loss. It works by decreasing appetite. Phentermine is absorbed by the body and travels to the appetite center of the brain. It works by helping you feel less hungry, less driven to eat, more satisfied with less food. I ve heard about fen-phen. Will phentermine affect my heart? The two drug combination fenfluramine/phentermine, usually called fen-phen, became popular in the early as a diet pill. However, it was withdrawn by the FDA in late 1996 after studies which showed that fenfluramine can cause fatal pulmonary hypertension and heart valve problems. Phentermine is not a combination medication and does not contain the compound fenfluramine. What special precautions should I follow? Before having phentermine prescribed, tell your doctor and pharmacist: If you have allergies to any component of phentermine If you are , plan to become , are breast-feeding, or if you become while taking phentermine What are the absolute contraindications? Stroke or Transient Ischemic Attacks Cardiac arrhythmias or Atrial fibrillation Coronary artery disease Seizure Disorder Uncontrolled blood pressure Angina Congestive Heart Failure Valvular Heart Disease or primary pulmonary hypertension Drug interactions. Use of monamine oxidase inhibitors (MAOI s) What are the side effects of phentermine? Immediately discontinue the medicine and seek medical help if you have severe symptoms such as chest pain, shortness of breath, feeling faint, ability to think clearly, eye pain or other visual symptoms: Palpitations (strong or rapid heartbeat) Difficulty sleeping or falling asleep Elevated blood pressure Dry mouth Anxiety or agitation Getting a stimulant/or hyper effect or jitteriness-(Usually goes away after a few days or weeks) Glaucoma In case of emergency/overdose In case of overdose, call your local poison control center at or call local emergency services at [phone]. What other information should I know? Keep all appointments with your doctor and the laboratory. Do not let anyone else take your medication. Phentermine is a controlled substance. It is FDA approved for up to 3 months. Prescriptions may be refilled only a limited number of times. Keep a written list of all of your prescription and nonprescription (skxy-ytz-jvwdqkp) medicines, in addition to vitamins, minerals, or other dietary supplements. If you are taking the extended-release (long-acting) tablets, do not split, chew, or crush them tablet. There are some tablets that can be crushed and mixed with food Alcohol can make the side effects of phentermine worse How should I monitor while on this medication? Please check your blood pressure (BP) and resting pulse weekly (twice a week in the first 2 weeks).If the BP is over 140/90 (either one), or if the resting pulse is over 96 per minute (count for 10 seconds and multiply by 6), then stop the medication and call your doctor. Continue to improve your dietary and physical activity habits as the combination works best while on this medication. Start out by taking the medication in the morning at least 30 minutes prior to meals. If the effectseems to wear off by dinner time, try taking it later in the morning, but taking too late may result in trouble falling asleep. Be sure to eat regular meals. Less hunger does not make it appropriate to skip meals. Monitor your caffeine intake and use of decongestants as they may worsen the effects of phentermine Make sure to have an eye exam, including the pressure in your eyes (intra-ocular pressure), once a year. What should I do if I forget a dose? Skip the missed dose and continue your regular dosing schedule the next day. Do not take a double dose to make up for a missed one. Sources [facility] Consumer Medication Info: http://www.ncbi.nlm.nih.gov/pubmedhealth/OUK3519961/ AMA patient handouts: http://www.amaassn.org/ama1/pub/upload/mm/433/phrxsurgery.pdf Drugs.com: http://www.drugs.com/pro/phentermine.html [facility] of Present illness Narrative* Fabian Brasher MD - 10/29/2022 3:50 PM EST Images from the original note were not included. BMI Obesity Medicine Note October 29, 2022 Patient Summary:(06/13/22) Leelee Zamora is a 27 year old female with Class III obesity () who has early onset obesity with gradual weight gain. The causes of her obesity are multifactorial, biological, psychological and social and environmental. Specific factors include a genetic component related to a strong family of obesity, increased consumption of high calorie/process foods, irregular eating patterns , suboptimal physical activity, and poor sleep quality. She has few weight-related medical comorbidities which increase her cardiovascular mortality risk. There are additional metabolic obesity complications including vitamin D deficiency. Other medical conditions as above. Regarding her lifestyle, as above, she has several behavioral contributors; her physical activity is regular but not at the recommended levels of 200min per week. Overall, it is clear that her quality of life is severely compromised by her weight. It is likely acombination of weight loss therapies will be needed. She appears motivated today. Primary reason for wanting obesity treatment : I don't want to be fat anymore Overall goal: 150-160 lbs Interval history Returns after a month Reports having hernia 10/01/22 Obesity Medications: Tirzepatide (Mounjaro) 07/01/22, 271lb - reduced appetite. Doesn't know if helpful for cravings - no SE , sulfa burps on occasion, mainly with Micron[place] food Diet: Trying to cut back on carbs - reports 1-3 per meal Still snacks - changed to Keto bars (from candy bars) Doesn't buy other snack items Cancelled [address], makes me anxious doesn't track food for same reason Exercise: Chair exercises every other day Doesn't walk, too cold. Barriers to regular exercise? Yes, bone spurs on feet ?Sleep: No change. 17mo daughter wakes her. ??Stress: Some, Cause:trauma from daughter's , family, feelings of weight Weight History: She reports a strong family history of obesity and early onset (puberty) weight gain. She states her weight gain is related to the following factors, including depression, eating habits. Had Ileostomy in August 2021 (for 4th degree tear after giving ) and got down to 200 lbs. States gained weight back after reversal. 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 PE BP 120/69 (BP Site: Left Arm, BP Position: Sitting, BP Cuff Size: Large Adult) Pulse 86 Ht 160 cm (5' 3) Wt 115.9 kg (255 lb 9.6 oz) LMP 05/12/2022 (Approximate) BMI 45.28 kg/m NAD RRR Results: reviewed labs with the patient Impression: Leelee Zamora is a 27 year old female with Class III obesity with no additional metabolic obesity complications. Body mass index is 45.28 kg/m . Some weight loss with tirzepatide, mild SE may be more related to diet and medication vs med alone. Little change in lifestyle. No physical activity. No tracking. Appear to be some barriers around lifestyle modification. Motivation may be contributing factor in modification. Plan: -- continue to increase tirzepatide. -- Rx phentermine -- encouraged her to continue self directed behavioral modification. -- reassess professsional-directed behavioral change at next visit -- RTC in 4,8 wks Marcela Brasher MD MSc FTOS All documentation from previous visit of 09/29/22 was copied and pasted, documentation has been reviewed and edited as necessary for today's visit. [facility] Discharge instructions Patient Education 10/01/2022 16:53:58 1-[facility] Discharge Instructions Template (07/2018) (CUSTOM) DONTA SAME DAY SURGERY DISCHARGE INSTRUCTIONS PLEASE FOLLOW THE INSTRUCTIONS BELOW MARKED WITH AN X: _x__ Regular Diet: Start with clear liquids, then soup and crackers and gradually add other foods. _x__ Drink extra fluids. ___ Special Diet Instructions: ___ ACTIVITY: _x__ Avoid stress to suture line. Since you have had an anesthetic, it would be advisable not to drive, drink alcohol, or make major decisions over the next 24 hours. You may require more rest tonight and tomorrow. _x__ May resume regular activity as tolerated. ___ Restrict activity as follows: ___ ___ Walk Only ___ ___ Do not go up and down stairs. ___ Do not ride in car until ___ ___ Do not drive car. ___ Do not have sexual intercourse. _x__ No heavy lifting, pushing or straining. _x__ Other: _Follow all verbal and written orders given by Dr. Humphrey.__ BATHING/SHOWERING: ___ Sponge bathe until office visit. ___ Sitting in tub of warm water may relieve discomfort. ___ May tub bathe _x_ May shower in 24hrs. ___ On day after surgery sit in tub of warm water to soak off dressing. DRESSING: _x__ Keep operative area dry and clean for _24hrs.__ _x__ Check the operative area for signs of bleeding. Apply pressure to the bleeding site if necessary and call your physician. ___ Change dressing as necessary using sterile dressing material or bandaid. ___ Reinforce dressing as necessary. ___ Change and care for wound as follows: ___ ___ Wear bra for ___ days following breast surgery for comfort. ___ Change drip pad as needed. ___ Wear scrotal support for comfort. WATCH FOR SIGNS OF INFECTION: (Usually appears 36-48 hours after surgery) Increased temperature (101 degrees Fahrenheit or higher) Redness or swelling Increased pain Foul odor or drainage. If you have any questions, please call your doctor at the number listed on your follow up instructions. Follow all instructions given to you by your physician. Please complete and return the survey you will be receiving in the mail to help us better serve our patients. Form: [id number]) R: 01/1810/01/2022 16:53:02 Laparoscopic Inguinal Hernia Repair, Adult, Care After Laparoscopic Inguinal Hernia Repair, Adult, Care After This sheet gives you information about how to care for yourself after your procedure. Your health care provider may also give you more specific instructions. If you have problems or questions, contact your health care provider. What can I expect after the procedure? After the procedure, it is common to have: Pain. Swelling and bruising around the incision area. Scrotal swelling, in men. Some fluid or blood draining from your incisions. Follow these instructions at home: Incision care Follow instructions from your health care provider about how to take care of your incisions. Make sure you: ?Wash your hands with soap and water before you change your bandage (dressing). If soap and water are not available, use hand developmental behavioral physician. ?Change your dressing as told by your health care provider. ?Leave stitches (sutures), skin glue, or adhesive strips in place. These skin closures may need to stay in place for 2 weeks or longer. If adhesive strip edges start to loosen and curl up, you may trim the loose edges. Do not remove adhesive strips completely unless your health care provider tells you to do that. Check your incision area every day for signs of infection. Check for: ?More redness, swelling, or pain. ?More fluid or blood. ?Warmth. ?Pus or a bad smell. Wear loose, soft clothing while your incisions heal. Driving Do not drive or use heavy machinery while taking prescription pain medicine. Do not drive for 24 hours if you were given a medicine to help you relax (sedative) during your procedure. Activity Do not lift anything that is heavier than 10 lb (4.5 kg), or the limit that you are told, until your health care provider says that it is safe. Ask your health care provider what activities are safe for you. A lot of activity during the first week after surgery can increase pain and swelling. For 1 week after your procedure: ?Avoid activities that take a lot of effort, such as exercise or sports. ?You may walk and climb stairs as needed for daily activity, but avoid long walks or climbing stairs for exercise. Managing pain and swelling Put ice on painful or swollen areas: ?Put ice in a plastic bag. ?Place a towel between your skin and the bag. ?Leave the ice on for 20 minutes, 2 3 times a day. General instructions Do not take baths, swim, or use a hot tub until your health care provider approves. Ask your healthcare provider if you may take showers. You may only be allowed to take sponge baths. Take rydo-edr-xulwbdn and prescription medicines only as told by your health care provider. To prevent or treat constipation while you are taking prescription pain medicine, your health care provider may recommend that you: ?Drink enough fluid to keep your urine pale yellow. ?Take pcun-acf-yvddplu or prescription medicines. ?Eat foods that are high in fiber, such as fresh fruits and vegetables, whole grains, and beans. ?Limit foods that are high in fat and processed sugars, such as fried and sweet foods. Do not use any products that contain nicotine or tobacco, such as cigarettes and e-cigarettes. If you need help quitting, ask your health care provider. Drink enough fluid to keep your urine pale yellow. Keep all follow-up visits as told by your health care provider. This is important. Contact a health care provider if: You have more redness, swelling, or pain around your incisions or your groin area. You have more swelling in your scrotum. You have more fluid or blood coming from your incisions. Your incisions feel warm to the touch. You have severe pain and medicines do not help. You have abdominal pain or swelling. You cannot eat or drink without vomiting. You cannot urinate or pass a bowel movement. You faint. You feel dizzy. You have nausea and vomiting. You have a fever. Get help right away if: You have pus or a bad smell coming from your incisions. You have redness, warmth, or pain in your leg. You have chest pain. You have problems breathing. Summary Pain, swelling, and bruising are common after the procedure. Check your incision area every day for signs of infection, such as more redness, swelling, or pain. Put ice on painful or swollen areas for 20 minutes, 2 3 times a day. This information is not intended to replace advice given to you by your health care provider. Make sure you discuss any questions you have with your health care provider. Document Released: 01/07/2018 Document Revised: 03/07/2020 Document Reviewed: 01/07/2018 [employer] Patient Education 2020 [employer]. 10/01/2022 16:52:40 8- Post Op General Surgery (09/2020) (CUSTOM) What to Do After Your General Surgery This sheet will give you general information on what to do when you are home after surgery. However, you should always follow any specific instructions given to you by your surgeon. Pain Medication Please follow the directions on the label of your medication and use your discharge medication listprovided by the hospital. Do not take pain medication on an empty stomach. This may cause a stomachache. Constipation is common while taking oral pain medication after surgery. Use a stool softener (Colace) or gentle laxative (milk of magnesia) if needed. As soon as your pain allows, use less of any narcotic pain medication. You may take qwoh-kqy-yartuxv pain medication if you no longer need your prescribed pain medication. Iznz-tac-ouohnfq pain medications are Tylenol or Advil/Motrin (ibuprofen). Do not take Tylenol if you are still taking [place] or Percocet. They are the same type of medication, and too much acetaminophen can hurt your liver. Activity It is OK to use stairs. Do not lift more than 15 pounds. After surgery, you may feel tired. Rest is important for healing. Slowly increase your activity level by walking and doing normal activities as you feel comfortable. Do not drive while taking narcotic pain medication. They should be out of your system for 24 [address]. Diet Eating smaller meals instead of three large meals is good. This may help with your appetite and nutrition. Good nutrition will help you heal. Follow diet instructions that you were taught after surgery. Infection Prevention Washing your hands is one of the best ways to prevent infection. Always wash your hands before and after touching your incision or bandage. Hands carry germs that can cause infections. Try not to touch your incision. Keep the Incision Clean Wear clean, loose-fitting clothes to prevent clothes from rubbing on the incision. Put clean sheets on your bed when you get home. Do not let other people or animals touch the incision. Showering You may start to shower 48 hours after your surgery. Use a clean washcloth and towel on your incision before you use it on any other area of your body. Adjust the shower spray to gentle and use warm water. Gently wash over your incision using antibacterial soap and water and pat it dry. Do not rub the incision. Do not soak or submerge in the bathtub or hot tub until your surgeon says it is OK. Wound Care If you have a clear, see-through bandage over your incision(s), you may shower with it in place. The bandage is waterproof. oIt is normal to see a small amount of reddish fluid under the clear bandage. You may remove your bandage after 48 hours. If you are in the hospital longer than 48 hours, it is OK to remove your bandage when you get home. If you have thin white tape strips (Steri-Strips) over your incision, keep them dry. Do not remove them unless they begin curling up at the sides and are almost falling off. [place] or sutures are generally removed within seven to 14 days at your follow- up appointment. Drain Care If you have a drain, empty it two to three times per day or if it gets half full. Write down the time it was emptied and amount of fluid on a piece of paper. Bring your paper with times and fluid amounts to your follow-up appointment to show your surgeon. Call Your Doctor If: You have a fever of 101 degrees or higher. It is not uncommon to have a low- grade fever after surgery. You have new redness or fluid around the incision that smells bad or looks like pus. Your skin is very painful, red, warm and/or swollen around the incision. You have a lot of bleeding (push with pressure on the area if this happens). You have bad stomach pain or you start throwing up. If you are unable to reach your surgeon, go to the hospital. Follow Up If a follow-up appointment has not been made, please call your surgeon s office. Most appointments are 10 14 days after surgery. If you have any problems or concerns before then, call the surgeon s office. Follow Up Care 09/18/2022 14:17:55 With:LISA HUMPHREY DO, Surgery Address: [address] [place] [phone] When: Unknown Comments:In 2 weeks [facility] 12-21-2022 Summary of episode note Discharge Instructions Thank you for allowing [facility] to assist you with your healthcare needs. The following is importantdischarge information regarding your hospital visit. Your Care Team DAY VELAZQUEZ MD Your Diagnosis Post-op pain What to do next Follow Up Appointments Follow Up with LISA HUMPHREY DO, Surgery When Why: In 2 weeks Where: [address] [place] [phone] The Following Activity and Diet Have Been Ordered for You Discharge Activity - Ordered -- May Shower, No lifting greater than 15 pounds, no bath/pool, 10/01/22 14:25:00 EST Discharge Diet - Ordered -- Type of Diet: Regular, 10/01/22 14:25:00 EST The Following Equipment Has Been Ordered for You Discharge Home Equipment Discharge Wound Care - Ordered -- No Wound Care Needed, 10/01/22 14:25:00 EST Someone Will Contact You Regarding These Home Health Referrals No home referrals have been ordered for you. No one will call you. Allergies morphine (Hives, Tachycardia) Medications Please ask your primary doctor or pharmacist before taking any other medication not listed, including over the counter drugs, herbal medications, vitamins and or supplements as they may interact withyour home medications. What How Much When Why Instructions Last Dose New oxyCODONE (oxyCODONE 5 mg oral tablet ( IMMEDIATErelease )) 1 tab(s) by mouth Every 4 hours as needed for as needed for pain Post-op pain Duration: 5 Days ok to take 1-2 pills Pickup at [facility]/pharmacy #[id number] Unchanged levonorgestrel (Mirena 52 mg intrauterine device) 1 Each Intrauterine Once Unchanged mupirocin topical (mupirocin 2% topical ointment) 1 application Topical Two (2) times a day Bilateral intranasal application twice daily for 5 days prior to surgery &/ or as many days leading up to surgery as possible due to surgical urgency/ scheduling. Send to patient's preferred pharmacy. Unchanged tirzepatide (Mounjaro 5 mg/ 0.5 mL subcutaneous solution) 10 Milligram Subcutaneous Every week rotate injection sites Pharmacy Information [facility]/pharmacy #[id number]: [address], [place] [id number] [phone] Please take this list to your next doctor s visit. Bring all medications you take, including over the counter medications, herbals and other supplements with you to your doctor s visit. Patients and families are reminded to discard old lists and to update any records with all medication providers or retail pharmacies. Education Materials DONTA SAME DAY SURGERY DISCHARGE INSTRUCTIONS PLEASE FOLLOW THE INSTRUCTIONS BELOW MARKED WITH AN X: _x__ Regular Diet: Start with clear liquids, then soup and crackers and gradually add other foods. _x__ Drink extra fluids. ___ Special Diet Instructions: ___ ACTIVITY: _x__ Avoid stress to suture line. Since you have had an anesthetic, it would be advisable not to drive, drink alcohol, or make major decisions over the next 24 hours. You may require more rest tonight and tomorrow. _x__ May resume regular activity as tolerated. ___ Restrict activity as follows: ___ ___ Walk Only ___ ___ Do not go up and down stairs. ___ Do not ride in car until ___ ___ Do not drive car. ___ Do not have sexual intercourse. _x__ No heavy lifting, pushing or straining. _x__ Other: _Follow all verbal and written orders given by Dr. Humphrey.__ BATHING/SHOWERING: ___ Sponge bathe until office visit. ___ Sitting in tub of warm water may relieve discomfort. ___ May tub bathe _x_ May shower in 24hrs. ___ On day after surgery sit in tub of warm water to soak off dressing. DRESSING: _x__ Keep operative area dry and clean for _24hrs.__ _x__ Check the operative area for signs of bleeding. Apply pressure to the bleeding site if necessary and call your physician. ___ Change dressing as necessary using sterile dressing material or bandaid. ___ Reinforce dressing as necessary. ___ Change and care for wound as follows: ___ ___ Wear bra for ___ days following breast surgery for comfort. ___ Change drip pad as needed. ___ Wear scrotal support for comfort. WATCH FOR SIGNS OF INFECTION: (Usually appears 36-48 hours after surgery) Increased temperature (101 degrees Fahrenheit or higher) Redness or swelling Increased pain Foul odor or drainage. If you have any questions, please call your doctor at the number listed on your follow up instructions. Follow all instructions given to you by your physician. Please complete and return the survey you will be receiving in the mail to help us better serve our patients. Form: 1522 (52907) R: 01/18 Laparoscopic Inguinal Hernia Repair, Adult, Care After This sheet gives you information about how to care for yourself after your procedure. Your health care provider may also give you more specific instructions. If you have problems or questions, contact your health care provider. What can I expect after the procedure? After the procedure, it is common to have: Pain. Swelling and bruising around the incision area. Scrotal swelling, in men. Some fluid or blood draining from your incisions. Follow these instructions at home: Incision care Follow instructions from your health care provider about how to take care of your incisions. Make sure you: ? Wash your hands with soap and water before you change your bandage (dressing). If soap and water are not available, use hand developmental behavioral physician. ? Change your dressing as told by your health care provider. ? Leave stitches (sutures), skin glue, or adhesive strips in place. These skin closures may need to stay in place for 2 weeks or longer. If adhesive strip edges start to loosen and curl up, you may trim the loose edges. Do not remove adhesive strips completely unless your health care provider tells you to do that. Check your incision area every day for signs of infection. Check for: ? More redness, swelling, or pain. ? More fluid or blood. ? Warmth. ? Pus or a bad smell. Wear loose, soft clothing while your incisions heal. Driving Do not drive or use heavy machinery while taking prescription pain medicine. Do not drive for 24 hours if you were given a medicine to help you relax (sedative) during your procedure. Activity Do not lift anything that is heavier than 10 lb (4.5 kg), or the limit that you are told, until your health care provider says that it is safe. Ask your health care provider what activities are safe for you. A lot of activity during the first week after surgery can increase pain and swelling. For 1 week after your procedure: ? Avoid activities that take a lot of effort, such as exercise or sports. ? You may walk and climb stairs as needed for daily activity, but avoid long walks or climbing stairsfor exercise. Managing pain and swelling Put ice on painful or swollen areas: ? Put ice in a plastic bag. ? Place a towel between your skin and the bag. ? Leave the ice on for 20 minutes, 2 3 times a day. General instructions Do not take baths, swim, or use a hot tub until your health care provider approves. Ask your healthcare provider if you may take showers. You may only be allowed to take sponge baths. Take krrk-yzl-xcqhbcy and prescription medicines only as told by your health care provider. To prevent or treat constipation while you are taking prescription pain medicine, your health care provider may recommend that you: ? Drink enough fluid to keep your urine pale yellow. ? Take rzed-rcs-xvrbkfi or prescription medicines. ? Eat foods that are high in fiber, such as fresh fruits and vegetables, whole grains, and beans. ? Limit foods that are high in fat and processed sugars, such as fried and sweet foods. Do not use any products that contain nicotine or tobacco, such as cigarettes and e-cigarettes. If you need help quitting, ask your health care provider. Drink enough fluid to keep your urine pale yellow. Keep all follow-up visits as told by your health care provider. This is important. Contact a health care provider if: You have more redness, swelling, or pain around your incisions or your groin area. You have more swelling in your scrotum. You have more fluid or blood coming from your incisions. Your incisions feel warm to the touch. You have severe pain and medicines do not help. You have abdominal pain or swelling. You cannot eat or drink without vomiting. You cannot urinate or pass a bowel movement. You faint. You feel dizzy. You have nausea and vomiting. You have a fever. Get help right away if: You have pus or a bad smell coming from your incisions. You have redness, warmth, or pain in your leg. You have chest pain. You have problems breathing. Summary Pain, swelling, and bruising are common after the procedure. Check your incision area every day for signs of infection, such as more redness, swelling, or pain. Put ice on painful or swollen areas for 20 minutes, 2 3 times a day. This information is not intended to replace advice given to you by your health care provider. Make sure you discuss any questions you have with your health care provider. Document Released: 01/07/2018 Document Revised: 03/07/2020 Document Reviewed: 01/07/2018 [employer] Patient Education 2020 [employer] What to Do After Your General Surgery This sheet will give you general information on what to do when you are home after surgery. However, you should always follow any specific instructions given to you by your surgeon. Pain Medication Please follow the directions on the label of your medication and use your discharge medication listprovided by the hospital. Do not take pain medication on an empty stomach. This may cause a stomachache. Constipation is common while taking oral pain medication after surgery. Use a stool softener (Colace) or gentle laxative (milk of magnesia) if needed. As soon as your pain allows, use less of any narcotic pain medication. You may take sylh-ybc-yiqrpzi pain medication if you no longer need your prescribed pain medication. Lcvl-pvs-snuihba pain medications are Tylenol or Advil/Motrin (ibuprofen). Do not take Tylenol if you are still taking [place] or Percocet. They are the same type of medication, and too much acetaminophen can hurt your liver. Activity It is OK to use stairs. Do not lift more than 15 pounds. After surgery, you may feel tired. Rest is important for healing. Slowly increase your activity level by walking and doing normal activities as you feel comfortable. Do not drive while taking narcotic pain medication. They should be out of your system for 24 hours before [address]. Diet Eating smaller meals instead of three large meals is good. This may help with your appetite and nutrition. Good nutrition will help you heal. Follow diet instructions that you were taught after surgery. Infection Prevention Washing your hands is one of the best ways to prevent infection. Always wash your hands before and after touching your incision or bandage. Hands carry germs that can cause infections. Try not to touch your incision. Keep the Incision Clean Wear clean, loose-fitting clothes to prevent clothes from rubbing on the incision. Put clean sheets on your bed when you get home. Do not let other people or animals touch the incision. Showering You may start to shower 48 hours after your surgery. Use a clean washcloth and towel on your incision before you use it on any other area of your body. Adjust the shower spray to gentle and use warm water. Gently wash over your incision using antibacterial soap and water and pat it dry. Do not rub the incision. Do not soak or submerge in the bathtub or hot tub until your surgeon says it is OK. Wound Care If you have a clear, see-through bandage over your incision(s), you may shower with it in place. The bandage is waterproof. o It is normal to see a small amount of reddish fluid under the clear bandage. You may remove your bandage after 48 hours. If you are in the hospital longer than 48 hours, it is OK to remove your bandage when you get home. If you have thin white tape strips (Steri-Strips) over your incision, keep them dry. Do not remove them unless they begin curling up at the sides and are almost falling off. [place] or sutures are generally removed within seven to 14 days at your follow- up appointment. Drain Care If you have a drain, empty it two to three times per day or if it gets half full. Write down the time it was emptied and amount of fluid on a piece of paper. Bring your paper with times and fluid amounts to your follow-up appointment to show your surgeon. Call Your Doctor If: You have a fever of 101 degrees or higher. It is not uncommon to have a low- grade fever after surgery. You have new redness or fluid around the incision that smells bad or looks like pus. Your skin is very painful, red, warm and/or swollen around the incision. You have a lot of bleeding (push with pressure on the area if this happens). You have bad stomach pain or you start throwing up. If you are unable to reach your surgeon, go to the hospital. Follow Up If a follow-up appointment has not been made, please call your surgeon s office. Most appointments are 10 14 days after surgery. If you have any problems or concerns before then, call the surgeon s office. Additional Information VACCINATE! IT SAVES LIVES! Members of the community who have not yet received the COVID-19 vaccine and would like to receive it can visit one of [facility] vaccine clinics. There are many vaccine clinic locations within the [facility]. For locations and available times, please visit [email or web address].gov/. It is important to note that some COVID mobile vaccine clinics are held outdoors and may be canceled in rainy or stormy conditions. To learn more about pediatric vaccinations (ages 5-11), we invite you to visit the [facility] webpage. [email or web address] [email or web address] learn more about the COVID-19 vaccine, we invite you to visit the [facility] website for a list of frequently asked questions. [email or web address]-[email or web address] _[email or web address]-Questions.pdf [facility] Patient Portal Access Instructions: Stay connected with your healthcare team and access your personal medical information anytime with the [facility] Patient Portal.If you would like a full copy of your medical records, please contact the [facility] Medical Records Department, Thursday through Thursday between 8a.m. and 4:30p.m. Please follow the directions below to access the portal: 1.Access the email account you provided upon registration to the hospital.2.Look for an invitation email from [facility].3.Open the email and access the invitation link: Accept Invitation to [facility]4.Fill in the required rosales to create your account. Sign into [email or web address] with your username and password that you created in the above steps to stay up to date. You can then view a summary of results, a summary of your visits, and the ability to download your summaries to your computer or send the information securely to a physician. Remember that your healthcare information is confidential, so carefully consider who you will allow to register on the [facility] Patient Portal for access to your information. You can also access the [facility] Patient Portal on the [employer] jessica. Simply click on Health Records under HealthData and then click on the [employer] logo. HOW TO SAFELY DISPOSE OF PRESCRIPTION MEDICATIONS Please use one of the following methods to safely dispose of your unused medications. 1.Use a drug disposal kit: the drug disposal pouch allows you to safely discard your old and unuseddrugs. Ask your nurse to give you one when you are discharged.2.Visit a local take-back location: Many local pharmacies and police departments have programs that collect old and unwanted prescriptiondrugs. Call your local pharmacy or go to http://bit.ly/2C1Wl9t to find one close to you.3.Make use of household items: Use cat litter or old coffee grounds to dispose medications if other options arenot available. Mix your drugs with these household products, seal them in an airtight container andthrow it into the garbage. Call [facility]: [phone] to be sure your drugs can be disposed of in this way. Some medicines may require a different approach.4.Never flush your medications down the toilet. IF YOU HAVE BEEN PRESCRIBED AN OPIOID FOR PAIN If you have been prescribed an opioid (such as hydrocodone, oxycodone or morphine), it is critical to understand the possible side effects and risks of opioid pain medications. Even when taken as directed, opioids can have several side effects including: Tolerance, meaning you might need to take more of a medication for the same pain relief. Nausea, vomiting and/or constipation. Sleepiness, dizziness, dry mouth, confusion, depression or itching. Physical dependence, meaning you have withdrawal symptoms when a medication is stopped, can develop within a few days. KNOW YOUR RESPONSIBILITIES It is important to know exactly how much and how often to take the opioid pain medications you are prescribed. Never take opioids in higher amounts or more often than prescribed. Do not combine opioids with alcohol or other drugs that cause drowsiness, such as benzodiazepines, also known as benzos, including diazepam and alprazolam, muscle relaxants or sleep aids. Never sell or share prescription opioids. This is illegal. Store opioids in a secure place and out of reach of others (including children, family, friends and visitors). The last page of this document has been signed and retained as a CHART COPY. Signatures Patient Education Materials 1-SDS Discharge Instructions Template (07/2018) (CUSTOM) Laparoscopic Inguinal Hernia Repair, Adult, Care After 8- Post Op General Surgery (09/2020) (CUSTOM) Medication Leaflets My discharge plan and instructions have been reviewed and explained to me and I,LEELEE ZAMORA understand my current condition and have read and understand these discharge instructions. I have received a written copy of the plan/instructions. If I have questions, I am aware that I should contact my doctor. 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 Patient location: PACU. Assessment Postanesthesia assessment Vitals: Vital signs from flowsheet : Vital Signs 10/01/2022 16:00 EST Heart Rate Monitored 91 bpm Respiratory Rate 18 br/min Systolic Blood Pressure Non-Invasive 135 mmHg Diastolic Blood Pressure Non-Invasive 74 mmHg Mean Arterial Pressure (NBP) 89 mmHg 10/01/2022 15:50 EST Heart Rate Monitored 89 bpm Respiratory Rate 18 br/min Systolic Blood Pressure Non-Invasive 135 mmHg Diastolic Blood Pressure Non-Invasive 89 mmHg Mean Arterial Pressure (NBP) 99 mmHg 10/01/2022 15:35 EST Heart Rate Monitored 111 bpm HI Respiratory Rate 18 br/min Systolic Blood Pressure Non-Invasive 131 mmHg Diastolic Blood Pressure Non-Invasive 78 mmHg Mean Arterial Pressure (NBP) 90 mmHg 10/01/2022 15:20 EST Heart Rate Monitored 91 bpm Respiratory Rate 16 br/min Systolic Blood Pressure Non-Invasive 137 mmHg Diastolic Blood Pressure Non-Invasive 67 mmHg Mean Arterial Pressure (NBP) 83 mmHg 10/01/2022 15:05 EST Heart Rate Monitored 102 bpm HI Respiratory Rate 16 br/min Systolic Blood Pressure Non-Invasive 128 mmHg Diastolic Blood Pressure Non-Invasive 76 mmHg Mean Arterial Pressure (NBP) 88 mmHg 10/01/2022 14:47 EST Temperature Temporal Artery 36.3 DegC Heart Rate Monitored 97 bpm Respiratory Rate 16 br/min Systolic Blood Pressure Non-Invasive 129 mmHg Diastolic Blood Pressure Non-Invasive 81 mmHg Mean Arterial Pressure (NBP) 92 mmHg 10/01/2022 14:32 EST Heart Rate Monitored 105 bpm HI Respiratory Rate 14 br/min Systolic Blood Pressure Non-Invasive 127 mmHg Diastolic Blood Pressure Non-Invasive 81 mmHg Mean Arterial Pressure (NBP) 91 mmHg 10/01/2022 14:25 EST Heart Rate Monitored 98 bpm bpm Respiratory Rate - Anes 4 br/min br/min 10/01/2022 14:23 EST Systolic Blood Pressure Non-Invasive 98 mmHg mmHg Diastolic Blood Pressure Non-Invasive 50 mmHg mmHg 10/01/2022 14:20 EST Heart Rate Monitored 88 bpm bpm Respiratory Rate - Anes 25 br/min br/min Systolic Blood Pressure Non-Invasive 132 mmHg mmHg Diastolic Blood Pressure Non-Invasive 77 mmHg mmHg 10/01/2022 14:16 EST Systolic Blood Pressure Non-Invasive 124 mmHg mmHg Diastolic Blood Pressure Non-Invasive 78 mmHg mmHg 10/01/2022 14:15 EST Heart Rate Monitored 89 bpm bpm Respiratory Rate - Anes 14 br/min br/min 10/01/2022 14:13 EST Systolic Blood Pressure Non-Invasive 125 mmHg mmHg Diastolic Blood Pressure Non-Invasive 78 mmHg mmHg 10/01/2022 14:10 EST Temperature (Route Not Specified) 35.39 DegC DegC Heart Rate Monitored 98 bpm bpm Respiratory Rate - Anes 14 br/min br/min Systolic Blood Pressure Non-Invasive 125 mmHg mmHg Diastolic Blood Pressure Non-Invasive 81 mmHg mmHg 10/01/2022 14:07 EST Systolic Blood Pressure Non-Invasive 130 mmHg mmHg Diastolic Blood Pressure Non-Invasive 81 mmHg mmHg 10/01/2022 14:05 EST Temperature (Route Not Specified) 35.33 DegC DegC Heart Rate Monitored 112 bpm bpm Respiratory Rate - Anes 14 br/min br/min 10/01/2022 14:04 EST Systolic Blood Pressure Non-Invasive 144 mmHg mmHg Diastolic Blood Pressure Non-Invasive 103 mmHg mmHg 10/01/2022 14:01 EST Systolic Blood Pressure Non-Invasive 137 mmHg mmHg Diastolic Blood Pressure Non-Invasive 90 mmHg mmHg 10/01/2022 14:00 EST Temperature (Route Not Specified) 35.27 DegC DegC Heart Rate Monitored 86 bpm bpm Respiratory Rate - Anes 13 br/min br/min 10/01/2022 13:58 EST Systolic Blood Pressure Non-Invasive 128 mmHg mmHg Diastolic Blood Pressure Non-Invasive 93 mmHg mmHg 10/01/2022 13:55 EST Temperature (Route Not Specified) 35.2 DegC DegC Heart Rate Monitored 81 bpm bpm Respiratory Rate - Anes 14 br/min br/min Systolic Blood Pressure Non-Invasive 123 mmHg mmHg Diastolic Blood Pressure Non-Invasive 79 mmHg mmHg 10/01/2022 13:52 EST Systolic Blood Pressure Non-Invasive 123 mmHg mmHg Diastolic Blood Pressure Non-Invasive 81 mmHg mmHg 10/01/2022 13:50 EST Temperature (Route Not Specified) 35.17 DegC DegC Heart Rate Monitored 78 bpm bpm Respiratory Rate - Anes 13 br/min br/min 10/01/2022 13:49 EST Systolic Blood Pressure Non-Invasive 115 mmHg mmHg Diastolic Blood Pressure Non-Invasive 72 mmHg mmHg 10/01/2022 13:45 EST Temperature (Route Not Specified) 35.13 DegC DegC Heart Rate Monitored 93 bpm bpm Respiratory Rate - Anes 14 br/min br/min 10/01/2022 13:43 EST Systolic Blood Pressure Non-Invasive 122 mmHg mmHg Diastolic Blood Pressure Non-Invasive 79 mmHg mmHg 10/01/2022 13:40 EST Temperature (Route Not Specified) 34.92 DegC DegC Heart Rate Monitored 74 bpm bpm Respiratory Rate - Anes 14 br/min br/min Systolic Blood Pressure Non-Invasive 123 mmHg mmHg Diastolic Blood Pressure Non-Invasive 80 mmHg mmHg 10/01/2022 13:37 EST Systolic Blood Pressure Non-Invasive 126 mmHg mmHg Diastolic Blood Pressure Non-Invasive 82 mmHg mmHg 10/01/2022 13:35 EST Temperature (Route Not Specified) 34.9 DegC DegC Heart Rate Monitored 77 bpm bpm Respiratory Rate - Anes 16 br/min br/min 10/01/2022 13:34 EST Systolic Blood Pressure Non-Invasive 121 mmHg mmHg Diastolic Blood Pressure Non-Invasive 78 mmHg mmHg 10/01/2022 13:31 EST Systolic Blood Pressure Non-Invasive 119 mmHg mmHg Diastolic Blood Pressure Non-Invasive 77 mmHg mmHg 10/01/2022 13:30 EST Temperature (Route Not Specified) 34.79 DegC DegC Heart Rate Monitored 75 bpm bpm Respiratory Rate - Anes 15 br/min br/min 10/01/2022 13:28 EST Systolic Blood Pressure Non-Invasive 116 mmHg mmHg Diastolic Blood Pressure Non-Invasive 76 mmHg mmHg 10/01/2022 13:25 EST Temperature (Route Not Specified) 34.67 DegC DegC Heart Rate Monitored 71 bpm bpm Respiratory Rate - Anes 15 br/min br/min Systolic Blood Pressure Non-Invasive 109 mmHg mmHg Diastolic Blood Pressure Non-Invasive 69 mmHg mmHg 10/01/2022 13:22 EST Systolic Blood Pressure Non-Invasive 118 mmHg mmHg Diastolic Blood Pressure Non-Invasive 69 mmHg mmHg 10/01/2022 13:20 EST Temperature (Route Not Specified) 34.67 DegC DegC Heart Rate Monitored 81 bpm bpm Respiratory Rate - Anes 15 br/min br/min 10/01/2022 13:19 EST Systolic Blood Pressure Non-Invasive 108 mmHg mmHg Diastolic Blood Pressure Non-Invasive 70 mmHg mmHg 10/01/2022 13:16 EST Systolic Blood Pressure Non-Invasive 113 mmHg mmHg Diastolic Blood Pressure Non-Invasive 73 mmHg mmHg 10/01/2022 13:15 EST Temperature (Route Not Specified) 34.67 DegC DegC Heart Rate Monitored 75 bpm bpm Respiratory Rate - Anes 15 br/min br/min 10/01/2022 13:13 EST Systolic Blood Pressure Non-Invasive 116 mmHg mmHg Diastolic Blood Pressure Non-Invasive 71 mmHg mmHg 10/01/2022 13:10 EST Temperature (Route Not Specified) 34.69 DegC DegC Heart Rate Monitored 81 bpm bpm Respiratory Rate - Anes 15 br/min br/min Systolic Blood Pressure Non-Invasive 116 mmHg mmHg Diastolic Blood Pressure Non-Invasive 73 mmHg mmHg 10/01/2022 13:07 EST Systolic Blood Pressure Non-Invasive 119 mmHg mmHg Diastolic Blood Pressure Non-Invasive 80 mmHg mmHg 10/01/2022 13:05 EST Temperature (Route Not Specified) 34.7 DegC DegC Heart Rate Monitored 91 bpm bpm Respiratory Rate - Anes 15 br/min br/min 10/01/2022 13:04 EST Systolic Blood Pressure Non-Invasive 122 mmHg mmHg Diastolic Blood Pressure Non-Invasive 81 mmHg mmHg 10/01/2022 13:01 EST Systolic Blood Pressure Non-Invasive 125 mmHg mmHg Diastolic Blood Pressure Non-Invasive 83 mmHg mmHg 10/01/2022 13:00 EST Temperature (Route Not Specified) 34.65 DegC DegC Heart Rate Monitored 85 bpm bpm Respiratory Rate - Anes 15 br/min br/min 10/01/2022 12:58 EST Systolic Blood Pressure Non-Invasive 117 mmHg mmHg Diastolic Blood Pressure Non-Invasive 82 mmHg mmHg 10/01/2022 12:55 EST Temperature (Route Not Specified) 34.52 DegC DegC Heart Rate Monitored 75 bpm bpm Respiratory Rate - Anes 15 br/min br/min Systolic Blood Pressure Non-Invasive 115 mmHg mmHg Diastolic Blood Pressure Non-Invasive 77 mmHg mmHg 10/01/2022 12:52 EST Systolic Blood Pressure Non-Invasive 111 mmHg mmHg Diastolic Blood Pressure Non-Invasive 72 mmHg mmHg 10/01/2022 12:50 EST Temperature (Route Not Specified) 34.29 DegC DegC Heart Rate Monitored 73 bpm bpm Respiratory Rate - Anes 12 br/min br/min 10/01/2022 12:49 EST Systolic Blood Pressure Non-Invasive 114 mmHg mmHg Diastolic Blood Pressure Non-Invasive 71 mmHg mmHg 10/01/2022 12:46 EST Systolic Blood Pressure Non-Invasive 116 mmHg mmHg Diastolic Blood Pressure Non-Invasive 75 mmHg mmHg 10/01/2022 12:45 EST Temperature (Route Not Specified) 33.7 DegC DegC Heart Rate Monitored 79 bpm bpm Respiratory Rate - Anes 12 br/min br/min 10/01/2022 12:43 EST Systolic Blood Pressure Non-Invasive 111 mmHg mmHg Diastolic Blood Pressure Non-Invasive 76 mmHg mmHg 10/01/2022 12:40 EST Temperature (Route Not Specified) 33.42 DegC DegC Heart Rate Monitored 69 bpm bpm Respiratory Rate - Anes 13 br/min br/min Systolic Blood Pressure Non-Invasive 105 mmHg mmHg Diastolic Blood Pressure Non-Invasive 74 mmHg mmHg 10/01/2022 12:37 EST Systolic Blood Pressure Non-Invasive 98 mmHg mmHg Diastolic Blood Pressure Non-Invasive 60 mmHg mmHg 10/01/2022 12:35 EST Temperature (Route Not Specified) 33.05 DegC DegC Heart Rate Monitored 75 bpm bpm Respiratory Rate - Anes 12 br/min br/min 10/01/2022 12:34 EST Systolic Blood Pressure Non-Invasive 105 mmHg mmHg Diastolic Blood Pressure Non-Invasive 60 mmHg mmHg 10/01/2022 12:31 EST Systolic Blood Pressure Non-Invasive 88 mmHg mmHg Diastolic Blood Pressure Non-Invasive 65 mmHg mmHg 10/01/2022 12:30 EST Heart Rate Monitored 70 bpm bpm Respiratory Rate - Anes 12 br/min br/min 10/01/2022 12:28 EST Systolic Blood Pressure Non-Invasive 94 mmHg mmHg Diastolic Blood Pressure Non-Invasive 59 mmHg mmHg 10/01/2022 12:25 EST Heart Rate Monitored 72 bpm bpm Respiratory Rate - Anes 11 br/min br/min Systolic Blood Pressure Non-Invasive 100 mmHg mmHg Diastolic Blood Pressure Non-Invasive 60 mmHg mmHg 10/01/2022 12:22 EST Systolic Blood Pressure Non-Invasive 100 mmHg mmHg Diastolic Blood Pressure Non-Invasive 62 mmHg mmHg 10/01/2022 12:20 EST Heart Rate Monitored 82 bpm bpm Respiratory Rate - Anes 12 br/min br/min 10/01/2022 12:19 EST Systolic Blood Pressure Non-Invasive 104 mmHg mmHg Diastolic Blood Pressure Non-Invasive 69 mmHg mmHg 10/01/2022 12:16 EST Systolic Blood Pressure Non-Invasive 103 mmHg mmHg Diastolic Blood Pressure Non-Invasive 57 mmHg mmHg 10/01/2022 12:15 EST Heart Rate Monitored 88 bpm bpm Respiratory Rate - Anes 12 br/min br/min 10/01/2022 12:13 EST Systolic Blood Pressure Non-Invasive 101 mmHg mmHg Diastolic Blood Pressure Non-Invasive 55 mmHg mmHg 10/01/2022 12:10 EST Heart Rate Monitored 90 bpm bpm Respiratory Rate - Anes 12 br/min br/min Systolic Blood Pressure Non-Invasive 103 mmHg mmHg Diastolic Blood Pressure Non-Invasive 54 mmHg mmHg 10/01/2022 12:07 EST Systolic Blood Pressure Non-Invasive 103 mmHg mmHg Diastolic Blood Pressure Non-Invasive 59 mmHg mmHg 10/01/2022 12:05 EST Heart Rate Monitored 94 bpm bpm Respiratory Rate - Anes 12 br/min br/min 10/01/2022 12:04 EST Systolic Blood Pressure Non-Invasive 109 mmHg mmHg Diastolic Blood Pressure Non-Invasive 56 mmHg mmHg 10/01/2022 12:01 EST Systolic Blood Pressure Non-Invasive 100 mmHg mmHg Diastolic Blood Pressure Non-Invasive 44 mmHg mmHg 10/01/2022 12:00 EST Heart Rate Monitored 99 bpm bpm Respiratory Rate - Anes 12 br/min br/min 10/01/2022 11:58 EST Systolic Blood Pressure Non-Invasive 107 mmHg mmHg Diastolic Blood Pressure Non-Invasive 63 mmHg mmHg 10/01/2022 11:55 EST Heart Rate Monitored 106 bpm bpm Respiratory Rate - Anes 10 br/min br/min 10/01/2022 11:50 EST Heart Rate Monitored 113 bpm bpm Respiratory Rate - Anes 10 br/min br/min 10/01/2022 11:45 EST Heart Rate Monitored 83 bpm bpm Respiratory Rate - Anes 0 br/min br/min 10/01/2022 11:44 EST Systolic Blood Pressure Non-Invasive 126 mmHg mmHg Diastolic Blood Pressure Non-Invasive 70 mmHg mmHg 10/01/2022 11:42 EST Systolic Blood Pressure Non-Invasive 130 mmHg mmHg Diastolic Blood Pressure Non-Invasive 57 mmHg mmHg 10/01/2022 9:25 EST Temperature Temporal Artery 36.3 DegC Peripheral Pulse Rate 77 bpm Respiratory Rate 16 br/min Systolic Blood Pressure Non-Invasive 135 mmHg Diastolic Blood Pressure Non-Invasive 82 mmHg . Mental status: at preoperative baseline. Respiratory function: respirations are non-labored, Stable. Respiratory support: none. CV function: Stable. Cardiovascular support: none. Pain: Satisfactory. Nausea status: Satisfactory. Postoperative hydration status: within normal limits. Notes: Patient is sufficiently recovered from anesthesia to participate in the evaluation. No follow-up care needed. No complications post-anesthesia.. Digitally Signed by BUDDY NORMAN MD on 10/01/2022 04:19 PM [id number] Anesthesiology Consult note Patient: LEELEE ZAMORA Age: 27 years Sex: Female : 1995 Associated Diagnoses: None Author: BUDDY NORMAN MD Preoperative Information Time of last food or liquid consumption: 10/01/2022 00:00:00 Anesthesia history Patient's history: negative. Family's history: negative. Health Status Allergies: Allergic Reactions (Selected) Severity Not Documented Morphine- Tachycardia and hives., Allergies (1) ActiveReaction morphineHives Current medications: (Selected) Inpatient Medications Ordered Kefzol: 2 gram(s), 20 mL, 240 mL/hr, IV Push (INT), PREOP pharm LR 1,000 mL: 20 mL/hr, Intravenous Prescriptions Prescribed mupirocin 2% topical ointment: 1 jessica, Topical, BID, Bilateral intranasal application twice daily for 5 days prior to surgery &/or as many days leading up to surgery as possible due to surgical urgency/scheduling. Send to patient's preferred pharmacy., 22 gram(s), 0 Refill(s) Documented Medications Documented Mirena 52 mg intrauterine device: 52 mg, 1 EA, Intrauterine, Once, 0 Refill(s) Mounjaro 5 mg/0.5 mL subcutaneous solution: 10 mg, Subcutaneous, qWeek, rotate injection sites, 4 EA, 0 Refill(s), Medications (2) Active Scheduled: (1) ceFAZolin syringe 2 gram(s) 20 mL, IV Push (INT), PREOP pharm Continuous: (1) Lactated Ringers 1,000 mL 1,000 mL, Intravenous, 20 mL/hr PRN: (0) Problem list: Medical Anxiety / SNOMED CT 16762324 / Confirmed Blood clot / SNOMED CT 613368875 / Confirmed History of reversal of ileostomy / SNOMED CT 8297060099 / Confirmed IUD contraception / SNOMED CT 6549665812 / Confirmed Obesity / SNOMED CT 5569983176 / Confirmed PCOS (polycystic ovarian syndrome) / SNOMED CT 459495251 / Confirmed, Active Problems (21) Acid reflux Anemia Anxiety Blood clot Contact lenses COVID-19 Fecal incontinence Glasses History of reversal of ileostomy Incisional hernia IUD contraception Obesity Ostomy nurse consultation PCOS (polycystic ovarian syndrome) Psoriasis PTSD (post-traumatic stress disorder) Scoliosis Seasonal allergy Skin tag Social anxiety disorder Umbilical hernia Histories Past Medical History: Active PCOS (polycystic ovarian syndrome) (418806104) Resolved Rectovaginal fistula (925500854): Resolved. Ileostomy status (422304012): Resolved. Family History: Hypertension Mother Stroke Grandparent Diabetes Grandparent Father Colon cancer Grandparent Procedure history: Sphincteroplasty, anal, for incontinence, adult; muscle transplant ([id number]) in the month of 07/2022 at 27 Years. Comments: 09/16/2022 10:56 EST - Stephani Noriega LPN, Dr EXAMINATION UNDER ANESTHESIA, EXPLORATORY LAPAROTOMY (MINI LAPAROTOMY), ILEOSTOMY REVERSAL, PARTIALSMALL BOWEL RESECTION - [facility] ([id number]) on 02/10/2022 at 26 Years. Exploratory laparotomy ([id number]) on 08/31/2021 at 26 Years. Loop ileostomy ([id number]) on 08/31/2021 at 26 Years. Perineorrhaphy ([id number]) on 08/26/2021 at 26 Years. Dilation and curettage-2019 ([id number]) in 2020 at 25 Years. 4th Degree Laceration Repair ([id number]). Extraction of wisdom tooth ([id number]). Fourth degree perineal laceration for wound Dehiscence-05/16/21 ([id number]). Barium enema (427466866). Social History Social & Psychosocial Habits Alcohol 08/23/2021 Use: Current Frequency: 1-2 times per year Substance Abuse 07/25/2021 Use: Never Tobacco 08/23/2021 Tobacco Use: Former smoker, quit more, quit 5 years ago Home/Environment 08/23/2021 Domestic Concerns None Living situation: Home/Independent Marital Status of Patient if Patient Independent Adult: Nutrition/Health 01/31/2022 Type of diet: Regular Appetite Excellent Eating Difficulties None Caffeine intake amount: 0 . Physical Examination Vital Signs 10/01/2022 9:25 EST Temperature Temporal Artery 36.3 DegC Peripheral Pulse Rate 77 bpm Respiratory Rate 16 br/min Systolic Blood Pressure Non-Invasive 135 mmHg Diastolic Blood Pressure Non-Invasive 82 mmHg Vital Signs(last 24 hrs) Last Charted Resp Rate 16 br/min (OCT 01 09:25) TGD763 mmHg (OCT 01:) DBP82 mmHg (OCT 01:) Measurements from flowsheet : Measurements 10/01/2022 9:25 EST Height 162.6 cm Height in inches 64 inch(es) Admission Weight 115.4 kg Weight Lbs 253.9 lb Weight Method Actual [place] Body Weight 54.74 kg Type of Scale Used Bed scale Admission Body Mass Index 43.65 m2 Pain assessment: Pain Assessment 10/01/2022 9:25 EST Primary Pain Intensity 0 Primary Pain Nonverbal Response Nods No Pain Scale Type 0-10 Pain scale . General: Alert and oriented. Airway: Mallampati classification: II (soft palate, fauces, uvula visible). Respiratory: Lungs are clear to auscultation. Cardiovascular: Normal rate. Heart Sounds: Normal. Review / Management Results review: No qualifying data available , Lab results 10/01/2022 9:43 EST SN - Preop - CTm Pt in SDS Room 10/01/2022 9:25 SN - Preop - CTm Pt Ready for OR/Proced 10/01/2022 9:42 10/01/2022 9:42 EST Wrist Left 10/01/2022 22 gauge Peripheral IV Activity: Insert new site Peripheral IV Dressing Condition: Clean, Dry, Intact Peripheral IV Dressing Activity: Applied, Transparent dressing Peripheral IV Line Status/Patency: Continuous infusion Peripheral IV Line Care: Secured with tape Peripheral IV Site Condition: No complications Peripheral IV Equipment: Manual Peripheral IV Number of Attempts: 1 Lactated Ringers Injection Begin Bag 1,000 mL mL 10/01/2022 9:35 EST lidocaine Not Done: Not Appropriate at this Time (Not Done) 10/01/2022 9:28 EST Privacy Restrictions Requested None Status No, per patient Sensory Deficits None Safety Brochure Information Reviewed Yes Donta Welcome Video Viewed No Barriers to Learning None evident Teaching Method Demonstration, Explanation, Printed materials Teaching Evaluation Verbalizes/Nonverbally indicates understanding Information Given by Patient Eat Poorly Due to Decreased Appetite No Total MST Score 0 No Personal Devices, Patient Valuables Glasses Admission Note-Nursing Same Day Patient History (Modified) 10/01/2022 9:25 EST Urine POC Negative Height 162.6 cm Height in inches 64 inch(es) Admission Weight 115.4 kg Weight Lbs 253.9 lb Weight Method Actual [place] Body Weight 54.74 kg Type of Scale Used Bed scale Admission Body Mass Index 43.65 m2 Temperature Temporal Artery 36.3 DegC Peripheral Pulse Rate 77 bpm Respiratory Rate 16 br/min Systolic Blood Pressure Non-Invasive 135 mmHg Diastolic Blood Pressure Non-Invasive 82 mmHg Primary Pain Intensity 0 Primary Pain Nonverbal Response Nods No Pain Scale Type 0-10 Pain scale Heart Rhythm Regular Oxygen Therapy Room air Oxygen Saturation 100 % Abdomen Description Non-distended, Soft Bowel Continence Continent Bowel Sounds All Quadrants Present Urinary Elimination Voiding, no difficulties Skin Temperature Warm Skin Description Normal for ethnicity Skin Integrity Intact Mucous Membrane Color Donora Skin Moisture General Dry IV Present Present Neurological Symptoms Patient denies Extremity Movement Equal Characteristics of Speech Clear Level of Consciousness Alert DANTE Yes Strength All Extremities Strong Tone All Extremities Normal Sensation All Extremities Intact Violence Risk Confused No Violence Risk Irritable No Violence Risk Boisterous No Violence Risk Verbal Threats No Violence Risk Physical Threats No Violence Risk Attacking Objects No Violence Risk Predictor Score 0 Violence Risk Intervention None Violence Risk Current Interventions None Affect/Behavior Appropriate, Calm, Cooperative Orientation Oriented x 4 Allergies Yes Colon Prep Results Good Consent Form Signed Yes Patient Dressed In Hospital gown Pre-op Preparation Glasses removed, Undergarments removed CHG Preoperative Wash/Wipe Night before procedure, Day of procedure, Site specific wipe Non-CHG Preoperative Shampoo Not applicable Preop Nasal Swab Povidone-Iodine History & Physical Update On Chart Yes History & Physical On Chart Yes Bowel Prep Completed Yes Obstructive Sleep Apnea Assess Completed Yes MRSA/MSSA Protocol Yes Edu-Pain Management Verbalizes/Nonverbally indicates understanding Individuals Taught Patient, Spouse Learning Readiness Willing to learn Barriers to Learning None evident Teaching Method Demonstration, Explanation, Printed materials Preferred Written Language Chilean Family/Caregiver Prefer Written Language Chilean Preferred Spoken Language Chilean Family/Caregiver Prefer Spoken Language Chilean General Infection Prevention Strategies Hand hygiene Surgical Site Infection Prevention SSI FAQ provided, Hand hygiene Infection Prevention Teaching Evaluation Verbalizes/Nonverbally indicates understanding Pre Procedure/Surgery Education Appropriate expectations, Bring glasses, hearing aids, contact lenscase, Date/Time of procedure/surgery, Hospital gown requirement worn to OR, Leave valuables, jewelry, wedding ring at home, Meds to take or hold, NPO, 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, Surgical skin prep Procedure/Surgical Teaching Evaluation Verbalizes/Nonverbally indicates understanding Ed-Safety Verbalizes/Nonverbally indicates understanding Ed-Pain Scale Verbalizes/Nonverbally indicates understanding Ed-Pain, Acute Verbalizes/Nonverbally indicates understanding Belongings At Bedside Cell phone, Coat, Glasses, Pants, Shirt, Shoes, Socks, Undergarments Activity Status ADL Awake, Bathroom privileges, Repositions self, Resting Assistive Device None NPO Status Maintained Standard Safety ID band on, Allergy Band on, Call device within reach, Bed in low position, Wheels locked, Upper/Half-Length side-rails up, Phone within reach, personal items within reach, Visitor atbedside, Non-Slip footwear Demonstrates Correct Call Light Use Yes Allergy Band on and Verified Yes Blood Band on and Verified No Patient ID Band on and Verified Yes Implants Verified Yes Pacemaker/AICD Verified Yes Last Fluid Intake 09/30/2022 22:00 Last Food Intake 09/30/2022 22:00 Last Void 10/01/2022 9:00 09/30/2022 14:27 EST Surgery Scheduled On Date/Time 10/01/2022 11:15 Patient Aware Date/Time Of Surgery Yes Arrival Time the Day of Surgery 10/01/2022 9:15 Patient Aware of Arrival Time Yes Pre-Op Patient Education NPO after midnight, No smoking after midnight, No makeup, No jewelry, Responsible [employer] Party, Aware of surgery location, Pre-op education done, 2 bottles CHG wash with instructions given, No ordered medications, VTE prevention handout given, SSI prevention handout given, MRSA protocol education provided (Modified) SN - Preprocedure Comments Spoke with patient, Verbalizes/Nonverbally indicates understanding Admission Note-Nursing Date\Time Correction . Assessment and Plan [place] [employer] (ASA) physical status classification: Class II. Anesthetic Preoperative Plan Anesthetic technique: General. Maintenance airway: Oral endotracheal tube. Risks discussed: nausea, vomiting, headache, sore throat, dental injury, hypotension, allergic reaction, serious complications. Informed consent: signed by patient. Notes: Patient seen and examined by me, the medical record was reviewed, lab results and cardiovascular studies examined and noted. Anesthesia was explained in detail and questions were invited and answered. We will proceed as outlined in the plan above.. Digitally Signed by BUDDY NORMAN MD on 10/01/2022 10:37 AM [facility] [id number] Instructions* Patient Instructions* Fabian Brasher MD - 09/29/2022 1:08 PM EST -- Please start topiramate as discussed. Take one tablet (25mg) every night and increase to 2 tablets at night (50MG) after 2 weeks if there is no change in your appetite, cravings or weight. The prescription will say to take twice per day, but we could try to take both tablets at night, if we think it may help with your sleep -- You can take the tablet it at night at first (because of potential sleepiness side effects), butthen you can take earlier around dinner after you have started the medication for a few days. You also may be able to take it in the morning if easier. -- We may increase the dose to 3 tablets (75mg) a few weeks later if there is no change with 2 tablets (50mg) and continue to increase the medication in this way (usually no more than 150mg). But it is best to contact me after 1 month to discuss continued increases of the medication. -- Please see the handout to review the potential side effects and to explain this further Topiramate (toe pyre a mate) What are the common names? Topamax Why is this medication prescribed? Topiramate is an anti-epileptic medications which has been approved by the FDA for patients 10 years of age or older for treatment of seizures. However, topiramate also has other uses such as the treatment of migraines. It also causes decrease in appetite and weight loss. The mechanism of weight loss is thought to be through inhibition of mitochondrial enzymes involved in energy expenditure and metabolism. Topiramate may work by helping you feel less hungry, less driven to eat, more satisfied with less food. What special precautions should I follow? Before having topiramate prescribed, tell your doctor and pharmacist: If you have allergies to any component of topiramate If you are , plan to become , are breast-feeding, or if you become while taking topiramate What are the warnings and precautions for this medication? Immediately discontinue the medicine and seek medical help if you have severe cognitive/neuropsychiatric adverse symptoms or eye symptoms. Cognitive/neuropsychiatric adverse events: symptoms may include confusion, psychomotor slowing, difficulty with concentration/attention, difficulty with memory, speech or language problems, particularily word-finding difficulties, somnolence or fatigue Acute myopia and secondary angle closure glaucoma, usually within 1 month of starting treatment: symptoms may include blurred vision, redness and/or pain in the eye Oligohydrosis (decrease sweating) and hyperthermia (elevation in body temperature) Increase in suicidal behavior or ideation Metabolic acidosis, non-gap hyperchloremic (decreased serum bicarbonate below normal levels) resulting in hyperventilation or fatigue Kidney stones Paresthesias (numbness or tingling in hands or feet) Ataxia Dizziness Increase in urination frequency Drug interactions. Use of monamine oxidase inhibitors (MAOI s), valproic acid, Caution use with dehydration or diarrheal illness, hepatic or renal impairment In case of emergency/overdose In case of overdose, call your local poison control center at or call local emergency services at [phone]. What other information should I know? Keep all appointments with your doctor and the laboratory. Do not let anyone else take your medication. Topiramate use needs to be monitored closely. Prescriptions may be refilled only a limited number of times. Keep a written list of all of your prescription and nonprescription ([id number]) medicines, in addition to vitamins, minerals, or other dietary supplements. How should I monitor while on this medication? Your doctor will check your baseline kidney function and electrolytes prior to starting this medication, then periodically. Continue to improve your dietary and physical activity habits as the combination works best while on this medication. Start out by taking the medication at bedtime as it can cause fatigue and sleepiness. Be sure to eat regular meals. Less hunger does not make it appropriate to skip meals. Make sure to have an eye exam, including the pressure in your eyes (intra-ocular pressure), once a year. What should I do if I forget a dose? Skip the missed dose and continue your regular dosing schedule the next day. Do not take a double dose to make up for a missed one. Sources Pub[employer] Health: http://www.ncbi.nlm.nih.gov/pubmedhealth/HNH8370691/ Drugs.com http://www.drugs.com/pro/topiramate.html documented [facility] of Present illness Narrative* Fabian Brasher MD - 09/29/2022 12:12 PM EST Images from the original note were not included. BMI Obesity Medicine Note [facility] Visit September 29, 2022 Virtual Visit (Audio/Visual)I have discussed the nature of this visit with the patient which will occur via [facility] (Phone, Virtual Visit) and she agrees to proceed with this interaction. Patient Summary:(06/13/22) Leelee Zamora is a 27 year old female with Class III obesity (There is no height or weight on fileto calculate BMI.) who has early onset obesity with gradual weight gain. The causes of her obesity are multifactorial, biological, psychological and social and environmental. Specific factors includea genetic component related to a strong family of obesity, increased consumption of high calorie/process foods, irregular eating patterns , suboptimal physical activity, and poor sleep quality. She has few weight-related medical comorbidities which increase her cardiovascular mortality risk. There are additional metabolic obesity complications including vitamin D deficiency. Other medical conditions as above. Regarding her lifestyle, as above, she has several behavioral contributors; her physical activity is regular but not at the recommended levels of 200min per week. Overall, it is clear that her quality of life is severely compromised by her weight. It is likely acombination of weight loss therapies will be needed. She appears motivated today. Primary reason for wanting obesity treatment : I don't want to be fat anymore Overall goal: 150-160 lbs Interval history No complaints Lost weight, less than expected. Obesity Medications: Tirzepatide (Mounjaro) - reduced appetite. Doesn't know if helpful for cravings - no SE , sulfa burps on occasion, mainly with Micronesian food Diet: Trying to cut back on carbs - reports 1-3 per meal Not eating B often Still snacks - changed to Keto bars (from candy bars) Doesn't buy other snack items Cancelled [address], makes me anxious doesn't track food for same reason Exercise: No routine. Doesn't walk, too cold. Barriers to regular exercise? Yes, bone spurs on feet Work-related activity:None . Occupation: N/A ?Sleep: No change. 17mo daughter wakes her. ??Stress: Some, Cause:trauma from daughter's , family, feelings of weight Weight History: She reports a strong family history of obesity and early onset (puberty) weight gain. She states her weight gain is related to the following factors, including depression, eating habits. Had Ileostomy in August 2021 (for 4th degree tear after giving ) and got down to 200 lbs. States gained weight back after reversal. Obesity Related Comorbidities: Prior Weight Loss Surgery:No ACTIVE PROBLEM LIST Class 3 Severe Obesity Without Serious Comorbidity With Body Mass Index (Bmi) of 45.0 to 49.9 in Adult (Hcc) Vitamin D Deficiency Saman (Generalized Anxiety Disorder) History of Gastroesophageal Reflux (Gerd) Allergic Rhinitis, Unspecified Ex-Smoker Psoriasis Encounter for Insertion of Mirena IUD Acute Deep Vein Thrombosis (Dvt) of Popliteal Vein of Right Lower Extremity (Hcc) History of Pulmonary Embolism No history of MS, COPD, asthma, peptic ulcer dx, hyperlipidemia, gallstones, hypothyroidism, hypertension, cancer, CVA, T2DM, gout, kidney stones, CKD. PAST SURGICAL HISTORY Procedure Laterality Date CYST EXCISION 2016 right leg D&C, DIAG AND/OR THERAPEUTIC 2019 EXTRACTION, ERUPTED TOOTH OR EXPOSED ROOT (ELEVATION AND/OR FORCEPS REMOVAL) 2012 LOCAL REVISION OF ILESTOMY 02/24/2022 Obesity ROS/ FHx The physical systems reviewed reveal no pathological symptoms that are pertinent to this visit August 2021- PE, right arm DVT- February 2022 I have confirmed and edited as necessary, the PFSH and ROS obtained by others. PE NAD/. Virtual Results: reviewed labs with the patient Impression: Leelee Zamora is a 27 year old female with Class III obesity with no additional metabolic obesity complications. Body mass index is 45.12 kg/m . Some weight loss with tirzepatide, mild SE may be more related to diet and medication vs med alone. Little change in lifestyle. No physical activity. No tracking. Appear to be some barriers around lifestyle modification. Motivation may be contributing factor in modification. Plan: -- continue to increase tirzepatide. -- add topiramate -- encouraged her to continue self directed behavioral modification. -- reassess professsional-directed behavioral change at next visit -- RTC in 2 months. Marcela Brasher MD MSc FTOS All documentation from previous visit of 06/23/22 was copied and pasted, documentation has been reviewed and edited as necessary for today's visit. I spent a total of 31 minutes on the date of the service which included preparing to see the patient, [id number] patient care, completing clinical documentation, counseling and educating the patient/family/caregiver, and ordering medications, tests, or procedures. [facility] Miscellaneous Notes* Telephone Encounter - Indira Novak RN - 09/11/2022 8:50 AM EST Patient returned call and given provider's message below. Pt will await any further advise regarding MATERIALS ANALYST. Claudia Novak RN * Telephone Encounter - Armando Boyce Cma - 09/11/2022 8:26 AM EST Left message for patient to return call to office Armando Boyce Cma * Telephone Encounter - Cooper Gastelum APRN.CNP - 09/11/2022 8:05 AM EST Please let patient know that her hemoglobin a1c and CMP are normal. I am awaiting a return message from her MATERIALS ANALYST and will see her at our follow up appointment. documented in this encounterMem[facility]11-29-[facility]22 Instructions* Patient Instructions* Cooper Gastelum APRN.CNP - 09/09/2022 3:28 PM EST CHOOSING PROTEIN Basic protein needs each day. 120G/Day If competing in sports you can increase this: 100 grams of protein each day (1.2-1.7 grams/kg) Protein foods include both animal (meat, poultry, seafood, and eggs) and plant (beans, peas, soy products, nuts, and seeds) sources. We all need protein to build lean muscle mass -- and there is someevidence that eating protein several times a day will make amino acids available during your workout. Vary your protein food choices: Eat a variety of foods from the protein group each week. [place]rie with main dishes made with beans or peas, nuts, soy and seafood. Eat seafood in place of meat or poultry twice a week. Include some fish that are higher in oils andlow in mercury, such as salmon, trout and cummings. Milk (8 grams), yogurt (12 grams) and Azeri yogurt (18 grams) contain protein. Choose lean or low-fat cuts of meat like round or sirloin and ground beef that is at least 90% lean. Trim or drain fat from meat and remove poultry skin. 3 ounces of meat, fish, poultry (about the size of a deck of cards) contains about 24 grams of protein. Have an egg: One egg a day, on average doesn't increase risk for heart disease, so make eggs a partof your weekly choices. One medium egg contains 6 grams of protein. Only the egg yolk contains cholesterol and satruated fat, so have as many egg whites as you want. Eating a healthy breakfast, especially one high in protein, increases satiety and reduces hunger throughout the day. Try a hard-boiled egg, peanut butter on whole grain toast, or add some nuts to your oatmeal or cereal. (2 tbsp of peanut butter is about 8 grams of protein) Eat plant protein foods more often. Try beans and peas (kidney, navy, black, sims, or white beans;splt peas; chickpeas; hummus), soy products (tofu, tempeh, veggie burgers), nuts and seeds. They are naturally low in saturated fat and high in fiber. (1/2 cup of beans is about 8 grams of protein) Choose unsalted nuts and seeds as a snack, on salads or in main dished to replace meat or poultry. Small portions of nuts will do - they are a concentrated source of calories. 1/2 cup nuts/seeds is about 15 grams of protein. Try grilling, broiling, roasting, or baking -- they don't add extra fat. Avoid breading meat, poultry or fish as this adds calories. Make a healthy sandwich: Choose turkey, roast beef, canned tuna or salmon, or peanut butter for sandwiches. Many deli meats, such as regular bologna or salami, are high in fat and sodium Make these occasional treats only. [place] Instant Breakfast, mixed with milk, contains 13 grams of protein a serving. documented in this encounterMem[facility]11-29-[facility]22 History of Present illness Narrative* Cooper Gastelum APRN.CNP - 09/09/2022 3:01 PM EST Chief Complaint Patient presents with: weight concern HPI Leelee Zamora is a 27 year old female who presents here today for Above Complaints. Patient is here for concerns regarding weight. Patient has seen Bariatric Surgeon who placed her onMounjaro 4 months ago. Patient has not lost any weight during that time. Patient had gestational diabetes and has been checking her BS at home and they range from 109-130's. Patient is concerned for diabetes. Patient frustrated at lack of progress in weight loss. Patient has had multiple surgeries following complications from including multiple hernias and colovaginal fistula with multiple repairs and ileostomy which was reversed in february. Past medical history, appointments, medications, allergies reviewed. Previous Medical History PAST MEDICAL HISTORY Diagnosis Date Acute deep vein thrombosis (DVT) of popliteal vein of right lower extremity (HCC) 02/2022 Allergic rhinitis, unspecified 12/16/2018 Chlamydia 16 YO Encounter for insertion of mirena IUD 12/24/2021 Ex-smoker 12/16/2018 Started at age 19 up to 1/2-1 PPD, quit 05/2018 SAMAN (generalized anxiety disorder) 12/16/2018 [facility]. History of gastroesophageal reflux (GERD) 12/16/2018 Obesity, Class III, BMI 40-49.9 (morbid obesity) (HCC) 03/09/2018 Psoriasis 12/16/2018 Vitamin D deficiency 12/16/2018 Previous Surgical History PAST SURGICAL HISTORY Procedure Laterality Date CYST EXCISION 2016 right leg D&C, DIAG AND/OR THERAPEUTIC 2019 EXTRACTION, ERUPTED TOOTH OR EXPOSED ROOT (ELEVATION AND/OR FORCEPS REMOVAL) 2012 LOCAL REVISION OF ILESTOMY 02/24/2022 Family History FAMILY HISTORY Problem Relation Age of Onset Diabetes Father Hypertension Father Heart disease Mother arythmia Kidney Disease Maternal Grandmother other (lupus) Maternal Grandmother Diabetes Paternal Grandfather Hypertension Paternal Grandfather Colon Cancer Paternal Grandmother late 50's Coronary Artery Disease Paternal Grandmother 40's Diabetes Paternal Grandmother Hypertension Paternal Grandmother Cervical Cancer Paternal Aunt Uterine Cancer Paternal Aunt Thyroid Cancer Paternal Aunt Alzheimer's Disease No Family History Breast Cancer No Family History Ovarian cancer No Family History Hyperlipidemia No Family History Thyroid No Family History Seizures No Family History Stroke No Family History Patient Allergies ALLERGIES Allergen Reactions Tree Nuts Rash Morphine Other: See Comments Tightness in chest Current Medications Current Outpatient Medications on File Prior to Visit Medication Sig tirzepatide (MOUNJARO) 10 mg/0.5 mL pen injector Inject 10 mg subcutaneously one time a week. tirzepatide (MOUNJARO) 7.5 mg/0.5 mL pen injector Inject 7.5 mg subcutaneously one time a week. EPINEPHrine (EPIPEN 2-ROSIE) 0.3 mg/0.3 mL auto-injector Inject 0.3 mL intramuscularly as needed. No current facility-administered medications on file prior to visit. Social History Social History Tobacco Use Smoking status: Former Years: 4.00 Types: Cigarettes Smokeless tobacco: Never Tobacco comments: 5 to 6 cigarettes Vaping Use Vaping Use: Never used Substance Use Topics Alcohol use: No Drug use: No Review of Symptoms REVIEW OF SYSTEMS SEE HPI EXAM: BP 112/70 Pulse 72 Resp 16 Wt 122.9 kg (271 lb) LMP 05/12/2022 (Approximate) BMI 46.14 kg/m General Appearance: Well appearing, alert, in no acute distress, well-hydrated, well nourished.. Skin: Skin color, texture, turgor normal, no suspicious rashes or lesions. Lungs: Lungs clear to auscultation. No wheezing, rhonchi, rales.. Heart: RRR without murmur, gallop, or rubs. No ectopy. Abdomen: Normal abdominal exam, Abdomen soft, non-tender. Bowel sounds normal. No masses, organomegaly. Peripheral Pulses: Normal. Health Maintenance List HEPATITIS B(1 of 3 - 3-dose series) Never done COVID-19 VACCINE(1) Never done HEPATITIS C SCREENING Never done HIV SCREENING Never done DTAP,TDAP,TD(1 - Tdap) Never done PAP TESTING Never done DEPRESSION ASSESSMENT Never done INFLUENZA(1) Never done ASSESSMENT/PLAN: 1. Class 3 severe obesity without serious comorbidity with body mass index (BMI) of 45.0 to 49.9 inadult, unspecified obesity type (HCC) - ICD9: 278.01, V85.42, ICD10: E66.01, Z68.42 (primary diagnosis) Stable - Behavioral and pharmacological intervention , - Medical nutrition therapy with dietitian, and - Continue current medications - CONSULT TO NUTRITION THERAPY 2. Encounter for screening for diabetes mellitus - ICD9: V77.1, ICD10: Z13.1 - HGB A1C 3. Weight gain - ICD9: 783.1, ICD10: R63.5 - CONSULT TO NUTRITION THERAPY - COMP METABOLIC PANEL Cooper Gastelum APRN.HOME VISITOR HOME BASE HEAD START documented in this encounterMem[facility]10-11-2022 NoteAdditional Instructions: Handouts Given: Topic 1anesthesia education Topic 2medication education Topic 3surgical site infection education Electronic Signatures: Sandhya Mariee (RN) (Signed 22-Jul-2022 15:36) Authored: Additional Instructions Last Updated: 22-Jul-2022 15:36 by Sandhya Mariee (RN)[facility] 07-22-2022 NotePost Operative Note: PreOp Diagnosis: Rectocele Post-Procedure Diagnosis: Rectocele Procedure: 1. Exam under anesthesia 2. Posterior repair 3. Perineoplasty Surgeon: Dr. Darryl Rodriguez Resident/Fellow/Other Supervisor [employer]: Dr. Kanwal Evans Anesthesia: General Estimated Blood Loss (mL): 10 cc Specimen: no Complications: None Findings: Normal external genitalia, shortened perineal body, approximately 2 cm, rectocele. Patient Returned To/Condition: Taken to PACU in stable condition Urine Output: 100 cc Operative Report Dictated: Dictation: not applicable - note contains Operative Report Operative Report: After informed consent was obtained, the patient was taken to the operating room where a timeout was performed. She was then put under general anesthesia. She was positioned in the dorsal lithotomy position using yellowfin stirrups. A pelvic exam was performed with the findings noted above. A fowler catheter was placed in the usual sterile fashion. A dilute 1% lidocaine with epinephrine was infiltrated under the posterior vaginal mucosa midline and into the perineal body. A transverse incision was cut in the perineum. The posterior vaginal wall was opened vertically and midline up to the apex of the rectocele. The cut edges were held and splayed laterally with a series of Allis clamps. The open vaginal mucosa was then dissected laterally with a combination of sharp and blunt dissection, exposing the perirectal fascia. The perirectal fascia was then reapproximated with interrupted #2-0 Vicryl sutures to draw the lateral folds together and tuck the rectocele back. The excess vaginal mucosa was trimmed. The posterior vaginal wall was closed with a running locked #2-0 Vicryl to the hymenal tags. Attention was then placed on the perineorrhaphy. The perineoplasty margins were outlined and a superficial incision was made through the outline with a knife. The overlying mucosa was then from the underlying muscles with metzenbaum scissors. Once the dissection was completed, the muscular tissue was plicated in the midline with a series of sutures using #0-Vicryl until the space was closed. The vaginal mucosa was then re-approximated with #2-0 monocryl until the wound was completely closed. Rectal exams were repeated throughout the repair and at the end to ensure there were no sutures penetrating rectal tissue. After hemostasis noted all instruments were removed from the vagina. The vagina was packed with vaginal packing and bacitracin. The packing was attached to the fowler catheter. The patient was taken to the PACU in stable condition. Dr. Rodriguez was scrubbed for the entire case. Kanwal Evans MD, GEORGE, BSN PGY-3, MATERIALS ANALYST Attestation: Note Completion: I am a:Resident/Fellow Attending AttestationI was present for the entire procedure Electronic Signatures: Kanwal Evans (Resident)) (Signed 22-Jul-2022 14:10) Authored: Post Operative Note, Note Completion Darryl Rodriguez) (Signed 22-Jul-2022 15:02) Authored: Post Operative Note, Note Completion Co-Signer: Post Operative Note, Note Completion Last Updated: 22-Jul-2022 15:02 by Darryl Rodriguez)[facility] 07-22-2022 NoteHistory of Present Illness: /Lactating: Are You no Are You Currently Breastfeedingno History Present Illness: Reason for surgery: Rectovaginal fistula, rectocele HPI: 27-year-old with residual rectovaginal fistula and rectocele. had a vaginal delivery of 8 pound 9 ounce girl 1 year ago May 05. Her labor lasted more than 24 hours she ended up with forcep assisted the vaginal delivery and 1/4 degree laceration. She lost a lot of blood 3 days later her laceration repair failed she saw Dr. Yemi Baez in [place] and had a revision 7 days after delivery. Unfortunately she has continued to have stool in the vagina ended up with an abscess and C. difficile. She later had a second revision with Dr. Velazquez at [place] which also failed per the patient and she had a ileostomy done in order to give her a break. She had that for about 6 months and was reversed February 10 after methylene dye test was negative. However she still feels symptoms of discharge and stool through the vagina and gas. 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 PMH: none PSH: perineal laceration revision x2, 2020 rectovaginal fistula repair, divertin ileostomy, February 2022 ileostomy reversal. May 2022 exam under anesthesia. Allergies: Allergies: morphine: Unknown Home Medication Review: Home Medications Reviewed: yes Impression/Procedure: Impression and Planned Procedure: Exam under anesthesia, posterior repair, perineoplasty, rebuilding the perineum. If a fistula is found and it is too large to be repaired at the same time we will plan on ileostomy and flap. ERAS (Enhanced Recovery After Surgery): ERAS Patient: no Review of Systems: Review of Systems: Constitutional: NEGATIVE: Fever Eyes: NEGATIVE: Blurry Vision ENMT: NEGATIVE: Nasal Discharge Respiratory: NEGATIVE: Dry Cough Cardiac: NEGATIVE: Chest Pain Gastrointestinal: NEGATIVE: Nausea Genitourinary: NEGATIVE: Discharge Musculoskeletal: NEGATIVE: Decreased ROM Physical Exam by System: Constitutional: NAD Respiratory/Thorax: no increased work of breathing Cardiovascular: warm and well perfused Genitourinary: per HPI, no bleeding Musculoskeletal: full range of motion Neurological: no gross neurological deficits Psychological: appropriate mood and affect Skin: no cyanosis Consent: COVID-19 Consent: COVID-19 Risk ConsentSurgeon has reviewed castro risks related to the risk of gopi COVID-19 and if they contract COVID-19 what the risks are. Attestation: Note Completion: I am a: Resident/Fellow Attending AttestationI saw and evaluated the patient. I personally obtained the castro and critical portions of the history and physical exam or was physically present for castro and critical portions performed by the resident/fellow. I reviewed the resident/fellows documentation and discussed the patient with the resident/fellow. I agree with the resident/fellows medical decision making as documented in the note. I personally evaluated the patient [id number] Electronic Signatures: Kanwal Evans (Resident)) (Signed 21-Jul-2022 18:41) Authored: History of Present Illness, Allergies, Home Medication Review, Impression/Procedure, ERAS, Review of Systems, Physical Exam, Consent, Note Completion Darryl Rodriguez) (Signed 22-Jul-2022 06:52) Authored: Note Completion Co-Signer: Note Completion Last Updated: 22-Jul-2022 06:52 by Darryl Rodriguez)[facility] 07-07-2022 History of Present illness Narrative* Myesha Loco MD - 07/07/2022 7:33 AM EDT Sent prescription for 5 mg Mounjaro as patient is almost done with her 2.5 mg. documented in this encounterMemorial [facility]09-[facility] History of Present illness Narrative* Sandhya Aguilar APRN.HOME VISITOR HOME BASE HEAD START - 07/02/2022 12:10 PM EDT This note was created using NoteWriter. Subjective Leelee Zamora is a 27 year old female. 27 year old female with PMH GERD, DVT, SAMAN and psoriasis presents for allergic reaction. 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 +red raised and itchy rash. Onset Thursday Went to the ED on Thursday, At that time she was placed on Pepcid, Prednisone, and has been using Benadryl. Denies new lotions or soaps. States that she used new shampoo. Of greater clinical significance she started eating cashews on Thursday. Endorses she was allergic to nut and tree nuts as a kid. States that she had started eating them on Thursday after she was informed in May that she is nolonger allergic. Went to ED on Thursday States Thursday she did not eat cashews, Yesterday evening she ate them States the rash has returned more intense Presents requesting different medicine and also requesting an epi pen. Denies SOB or dyspnea. Denies difficulty handling secretions. The history is provided by the patient. No language instructor was used. Rash This is a new problem. The current episode started in the past 7 days. The problem is unchanged. The rash is diffuse. The rash is characterized by itchiness and redness. Associated with: nuts. Pertinent negatives include no anorexia, congestion, cough, diarrhea, eye pain, facial edema, fatigue, fever, joint pain, nail changes, rhinorrhea, shortness of breath, sore throat or vomiting. Treatments tried: pepcid, prednisone and benadryl. The treatment provided mild relief. Her past medical history is significant for allergies. There is no history of asthma, eczema or varicella. PAST MEDICAL HISTORY Diagnosis Date Acute deep vein thrombosis (DVT) of popliteal vein of right lower extremity ([facility]) 02/2022 Allergic rhinitis, unspecified 12/16/2018 Chlamydia 16 YO Encounter for insertion of mirena IUD 12/24/2021 Ex-smoker 12/16/2018 Started at age 19 up to 1/2-1 PPD, quit 05/2018 SAMAN (generalized anxiety disorder) 12/16/2018 [facility]. History of gastroesophageal reflux (GERD) 12/16/2018 Obesity, Class III, BMI 40-49.9 (morbid obesity) ([facility]) 03/09/2018 Psoriasis 12/16/2018 Vitamin D deficiency 12/16/2018 PAST SURGICAL HISTORY Procedure Laterality Date CYST EXCISION 2016 right leg D&C, DIAG AND/OR THERAPEUTIC 2019 EXTRACTION, ERUPTED TOOTH OR EXPOSED ROOT (ELEVATION AND/OR FORCEPS REMOVAL) 2013 LOCAL REVISION OF ILESTOMY 02/24/2022 ALLERGIES Morphine MEDICATIONS tirzepatide (MOUNJARO) 2.5 mg/0.5 mL pen injector Inject 2.5 mg subcutaneously one time a week. hydrOXYzine HCl (ATARAX) 25 mg tablet Take 1 tablet by mouth every 6 hours as needed for up to 7 days. EPINEPHrine (EPIPEN 2-ROSIE) 0.3 mg/0.3 mL auto-injector Inject 0.3 mL intramuscularly as needed. FAMILY HISTORY Problem Relation Age of Onset Diabetes Father Hypertension Father Heart disease Mother arythmia Kidney Disease Maternal Grandmother other (lupus) Maternal Grandmother Diabetes Paternal Grandfather Hypertension Paternal Grandfather Colon Cancer Paternal Grandmother late 50's Coronary Artery Disease Paternal Grandmother 40's Diabetes Paternal Grandmother Hypertension Paternal Grandmother Cervical Cancer Paternal Aunt Uterine Cancer Paternal Aunt Thyroid Cancer Paternal Aunt Alzheimer's Disease No Family History Breast Cancer No Family History Ovarian cancer No Family History Hyperlipidemia No Family History Thyroid No Family History Seizures No Family History Stroke No Family History Social History Tobacco Use Smoking status: Former Years: 4.00 Types: Cigarettes Smokeless tobacco: Never Tobacco comments: 5 to 6 cigarettes Vaping Use Vaping Use: Never used Substance Use Topics Alcohol use: No Drug use: No Review of Systems Constitutional: Negative for appetite change, chills, fatigue and fever. HENT: Negative for congestion, rhinorrhea and sore throat. Eyes: Negative for pain. Respiratory: Negative for apnea, cough, choking, chest tightness and shortness of breath. Cardiovascular: Negative for chest pain, palpitations and leg swelling. Gastrointestinal: Negative for anorexia, diarrhea and vomiting. Musculoskeletal: Negative for joint pain. Skin: Positive for rash. Negative for nail changes. Allergic/Immunologic: Positive for environmental allergies and food allergies. Objective BP 98/64 Pulse 118 Temp 36.4 C (97.6 F) Resp 21 Wt 123.3 kg (271 lb 12.8 oz) LMP 05/12/2022 (Approximate) SpO2 99% BMI 46.28 kg/m Physical Exam Vitals and nursing note reviewed. Constitutional: General: She is not in acute distress. Appearance: Normal appearance. She is normal weight. She is not ill-appearing, toxic-appearing or diaphoretic. HENT: Head: Normocephalic and atraumatic. Right Ear: Ear canal and external ear normal. Left Ear: Ear canal and external ear normal. Nose: Nose normal. No congestion or rhinorrhea. Mouth/Throat: Mouth: Mucous membranes are moist. Pharynx: No oropharyngeal exudate or posterior oropharyngeal erythema. Comments: Uvula midline. Handling secretions Eyes: General: Right eye: No discharge. Left eye: No discharge. Extraocular Movements: Extraocular movements intact. Conjunctiva/sclera: Conjunctivae normal. Pupils: Pupils are equal, round, and reactive to light. Cardiovascular: Rate and Rhythm: Normal rate and regular rhythm. Pulses: Normal pulses. Heart sounds: Normal heart sounds. No murmur heard. No friction rub. Pulmonary: Effort: Pulmonary effort is normal. No respiratory distress. Breath sounds: Normal breath sounds. No stridor. No wheezing, rhonchi or rales. Chest: Chest wall: No tenderness. Abdominal: General: Abdomen is flat. There is no distension. Palpations: Abdomen is soft. There is no mass. Tenderness: There is no abdominal tenderness. There is no right CVA tenderness, left CVA tenderness, guarding or rebound. Hernia: No hernia is present. Musculoskeletal: General: No swelling, tenderness, deformity or signs of injury. Normal range of motion. Cervical back: Normal range of motion and neck supple. No rigidity. Right lower leg: No edema. Left lower leg: No edema. Lymphadenopathy: Cervical: No cervical adenopathy. Skin: General: Skin is warm and dry. Coloration: Skin is not jaundiced or pale. Findings: Rash (diffuse pruritic macupaular rash noted to anterior and posterior trunk. No petechia. NO red streaking) present. No bruising, erythema or lesion. Neurological: General: No focal deficit present. Mental Status: She is alert and oriented to person, place, and time. Cranial Nerves: No cranial nerve deficit. Sensory: No sensory deficit. Motor: No weakness. Coordination: Coordination normal. Gait: Gait normal. Psychiatric: Mood and Affect: Mood normal. Behavior: Behavior normal. Thought Content: Thought content normal. Judgment: Judgment normal. Assessment and Plan ASSESSMENT/PLAN: 1. Allergic reaction, initial encounter - ICD9: 995.3, ICD10: T78.40XA Started on Thursday Seen Thursday in ED Was given RX Prednisone, Benadryl and Pepcid In further talking , it appears cashews are the offender She has no red flags presently Hemodynamically stable Well appearing She will stop eating cashews Instructed to stop Benadryl and can use Vistaril She has requested an Epi pen and one has been provided. Follow up with PCP Sandhya Aguilar APRN.YADI [facility] Instructions* Patient Instructions* Sandhya Aguilar APRN.YADI - 07/02/2022 12:04 PM EDT Jose D Palm ACUTE ALLERGIC REACTION: Your exam shows you have had an allergic reaction. Symptoms of allergy reactions include itching, red rashes, hives, swelling around the face and tongue, and sometimes breathing difficulty. These reactions can be caused by pollens, drugs, foods, insect stings, and other environmental factors. It isoften difficult to determine the exact cause of an allergy reaction, so further medical evaluation may be needed. It is important to avoid any products to which you think you are allergic. Once a reaction occurs, treatment may include epinephrine injections, and antihistamine or cortisone medicines. You should avoid aspirin, narcotics, and alcohol since these can make allergy reactions worse. Call your doctor or the emergency department right away if you have increased swelling in your mouth or throat, wheezing or other breathing problems, or if you faint. documented in this encounterMem[facility] Instructions* Patient Instructions* Roverto Ag APRN.HOME VISITOR [facility] [facility] START - 06/23/2022 3:30 PM EDT [facility] PATIENT INFO ACUTE SINUSITIS OVERVIEW Rhinosinusitis, or more commonly sinusitis, is the medical term for inflammation (swelling) of the lining of the sinuses and nose. The sinuses are the hollow areas within the facial bones that are connected to the nasal openings. The sinuses are lined with mucous membranes, similar to the inside ofthe nose. There are two main types of sinusitis: acute and chronic. Acute sinusitis is inflammation that lasts for less than four weeks while chronic sinusitis lasts for more than 12 weeks. Acute sinusitis is common, affecting approximately one million people per year in the [place]. ACUTE SINUSITIS CAUSES The most common cause of acute sinusitis is a viral infection associated with the common cold. Bacterial sinusitis occurs much less commonly, in only 0.5 to 2 percent of cases, usually as a complication of viral sinusitis. Because antibiotics are effective only against bacterial, and not viral, infections, most people donot need antibiotics for acute sinusitis. ACUTE SINUSITIS SYMPTOMS Symptoms of acute sinusitis include: Nasal congestion or blockage Thick, yellow to green discharge from the nose Pain in the teeth Pain or pressure in the face that is worse when bending forwards Other acute sinusitis symptoms can include fever (temperature greater than 100.4 F or 38 C), fatigue, cough, difficulty or inability to smell, ear pressure or fullness, headache, and bad breath. In most cases, these symptoms develop over the course of one day and begin to improve within seven to 10 days. DO I NEED TO BE EXAMINED? It is difficult to know if you have a viral or bacterial sinus infection initially. However, most people with a viral infection improve without treatment within seven to 10 days after symptoms begin.Bacterial sinusitis also sometimes improves without treatment, although it can also worsen and require treatment. If one or more of the following bothersome symptoms last more than seven days, an examination by a healthcare provider is recommended: Thick, yellow to green discharge from the nose Face or tooth pain, especially if it is only on one side Tenderness over the maxillary sinuses (located on the left and right side of the nose, inside the cheekbones) Symptoms that initially improve and then worsen When to seek immediate help -- If you have one or more of the following symptoms, you should seek medical attention immediately (even if symptoms have been present for less than seven days): High fever (>102.5 F or 39.2 C) Sudden, severe pain in the face or head Double vision or difficulty seeing Confusion or difficulty thinking clearly Swelling or redness around one or both eyes Stiff neck, shortness of breath ACUTE SINUSITIS TREATMENT Initial treatment of a sinus infection aims to relieve symptoms since almost everyone will improve within the first seven to 10 days. Experts recommend avoiding antibiotics during this time unless there is clear evidence of a severe bacterial infection. Initial treatment Pain relief -- Non-prescription pain medications, such as acetaminophen (eg, Tylenol ) or ibuprofen(eg, Motrin , Advil ) are recommended for pain. Nasal irrigation and saline sprays -- Rinsing the nose with a salt-water (saline) solution is called nasal irrigation or nasal lavage. Saline is also available in a standard nasal spray, although this is not as effective as using larger amounts of water in an irrigation. Nasal irrigation is particularly useful for treating drainage down the back of the throat, sneezing, nasal dryness, and congestion. The treatment helps by rinsing out allergens and irritants from thenose. Saline rinses also clean the nasal lining and can be used before applying sprays containing medications, to get a better effect from the medication. Nasal lavage with warmed saline can be performed as needed, once per day, or twice daily for increased symptoms. Nasal lavage carries few risks when performed correctly. Saline nasal sprays and irrigation kits can be purchased [id number]. Saline mixes can also be purchased or patients can make their own solution. A variety of devices, including bulb syringes, Neti pots, and bottle sprayers, may be used to perform nasal lavage; instructions for nasal lavage are provided in the table. At least 200 mL (about 3/4cup) of fluid is recommended for each nostril. Nasal decongestants -- Nasal decongestant sprays, including oxymetazoline (Afrin ) and phenylephrine (Gordo-synephrine ) can be used to temporarily treat congestion. However, these sprays should not beused for more than two to three days due to the risk of rebound congestion (when the nose is congested constantly unless the medication is used repeatedly). Other treatments -- Other treatments for congestion, such as oral antihistamines (such as diphenhydramine/Benadryl ) or zinc supplements are not proven to improve symptoms of sinusitis and can have unwanted side effects. Medications to thin secretions (such as guaifenesin) may help to clear mucus. Secondline treatment -- If symptoms have not improved in seven to ten days, you should arrange for medical evaluation. You may need further treatment. Nasal glucocorticoids -- Nasal glucocorticoids (steroids delivered by a nasal spray) can help to reduce swelling inside the nose, usually within two to three days. These drugs have few side effects and dramatically relieve symptoms in most people. There are a number of nasal glucocorticoids available by prescription. These drugs are all effective, but differ in how frequently they must be used and how much they cost. You may need to use a nasal decongestant for a few days before starting a nasal glucocorticoid to reduce nasal swelling; this will allow the nasal glucocorticoid to reach more areas of the nasal passages Do I need an antibiotic? -- If bothersome symptoms of sinusitis persist for 10 or more days, it is possible that you have bacterial sinusitis. The need for antibiotics depends upon the severity of your symptoms. Mild symptoms -- There are two possible treatment options if you have mild sinusitis symptoms: treat with antibiotics or continue to watch and wait for one week. Watching and waiting is a reasonable option because up to 75 percent of people with bacterial sinusitis improve within one month without antibiotics. During the watch and wait period, treatments to improve symptoms are recommended. If symptoms worsen or do not improve after watching and waiting, treatment with an antibiotic is usually recommended. Treatments to relieve symptoms are recommended while using antibiotics. Moderate or severe symptoms -- Most healthcare providers will prescribe an antibiotic for moderate to severe symptoms (temperature >38.3 C or 101 F and/or severe pain that interferes with usual activities). Treatments to relieve symptoms are also recommended during antibiotic treatment. One of the least expensive and most effective antibiotics for sinusitis is amoxicillin. An alternate antibiotic will be prescribed if you are allergic to penicillin. Regardless of which antibiotic isprescribed, it is important to follow the dosing instructions carefully and to finish the entire course of treatment. Taking the medication less often than prescribed or stopping the medication earlycan lead to complications, such as a recurrent infection. What if I do not improve with treatment? -- If you do not improve or worsen after a course of antibiotics, you should be re-examined. In some cases, symptoms of sinusitis improve but then recur. This is usually because the infection was not completely eliminated by the antibiotic. An alternate antibiotic, extended antibiotic treatment, and/or further testing may be recommended, depending upon your individual situation. documented in this encounter[facility] History of Present illness Narrative* Roverto Ag APRN.CNP - 06/23/2022 3:18 PM EDT Subjective HPI Nontoxic-appearing female presents urgent care chief complaint nasal congestion. Duration of symptoms 10 to 14 days. Associated symptoms nasal congestion. Patient states she also does have lower backpain. This started few days ago. History of lower back pain in the past this feels similar. Patientstates she has not use any OTC medications for back pain. Rates pain 3-4 out of 10. States last week she did test positive for COVID-19. States individuals in her household had similar signs symptoms. Denies any fever body aches chills productive cough chest pain shortness of breath nausea vomitingabdominal pain change in bowel or bladder habit incontinence saddle anesthesia night sweats. Past medical history prescription medication use allergies reviewed. Denies chance of is not breast-feeding. .Patient presents with: Nasal Congestion: drainage, low back pain x 10-14 days PAST MEDICAL HISTORY Diagnosis Date Acute deep vein thrombosis (DVT) of popliteal vein of right lower extremity ([facility]) 02/2022 Allergic rhinitis, unspecified 12/16/2018 Chlamydia 16 YO Encounter for insertion of mirena IUD 12/24/2021 Ex-smoker 12/16/2018 Started at age 19 up to 1/2-1 PPD, quit 05/2018 SAMAN (generalized anxiety disorder) 12/16/2018 [facility]. History of gastroesophageal reflux (GERD) 12/16/2018 Obesity, Class III, BMI 40-49.9 (morbid obesity) ([facility]) 03/09/2018 Psoriasis 12/16/2018 Vitamin D deficiency 12/16/2018 PAST SURGICAL HISTORY Procedure Laterality Date CYST EXCISION 2016 right leg D&C, DIAG AND/OR THERAPEUTIC 2019 EXTRACTION, ERUPTED TOOTH OR EXPOSED ROOT (ELEVATION AND/OR FORCEPS REMOVAL) 2012 LOCAL REVISION OF ILESTOMY 02/24/2022 ALLERGIES Morphine and Tree Nut MEDICATIONS tirzepatide (MOUNJARO) 2.5 mg/0.5 mL pen injector Inject 2.5 mg subcutaneously one time a week. FAMILY HISTORY Problem Relation Age of Onset Diabetes Father Hypertension Father Heart disease Mother arythmia Kidney Disease Maternal Grandmother other (lupus) Maternal Grandmother Diabetes Paternal Grandfather Hypertension Paternal Grandfather Colon Cancer Paternal Grandmother late 50's Coronary Artery Disease Paternal Grandmother 40's Diabetes Paternal Grandmother Hypertension Paternal Grandmother Cervical Cancer Paternal Aunt Uterine Cancer Paternal Aunt Thyroid Cancer Paternal Aunt Alzheimer's Disease No Family History Breast Cancer No Family History Ovarian cancer No Family History Hyperlipidemia No Family History Thyroid No Family History Seizures No Family History Stroke No Family History Social History Tobacco Use Smoking status: Former Years: 4.00 Types: Cigarettes Smokeless tobacco: Never Tobacco comments: 5 to 6 cigarettes Vaping Use Vaping Use: Never used Substance Use Topics Alcohol use: No Drug use: No BP 122/72 Pulse 90 Temp 36.9 C (98.5 F) Resp 18 Wt 123.4 kg (272 lb) LMP 05/12/2022 (Approximate) SpO2 99% BMI 46.31 kg/m Review of Systems Constitutional: Negative for chills, fever and malaise/fatigue. HENT: Positive for congestion. Negative for ear discharge, ear pain, sinus pain and sore throat. Eyes: Negative for blurred vision, pain, discharge and redness. Respiratory: Negative for cough, hemoptysis, sputum production, shortness of breath, wheezing and stridor. Cardiovascular: Negative for chest pain. Gastrointestinal: Negative for abdominal pain, diarrhea, nausea and vomiting. Genitourinary: Negative. Musculoskeletal: Positive for back pain. Negative for falls, joint pain, myalgias and neck pain. Skin: Negative for itching and rash. Neurological: Negative for dizziness and headaches. Objective Physical Exam Constitutional: General: She is not in acute distress. Appearance: She is not diaphoretic. HENT: Head: Normocephalic. Nose: Rhinorrhea present. Mouth/Throat: Mouth: Mucous membranes are moist. Pharynx: Oropharynx is clear. No oropharyngeal exudate or posterior oropharyngeal erythema. Eyes: Conjunctiva/sclera: Conjunctivae normal. Pupils: Pupils are equal, round, and reactive to light. Cardiovascular: Rate and Rhythm: Normal rate and regular rhythm. Heart sounds: Normal heart sounds. Pulmonary: Effort: Pulmonary effort is normal. No tachypnea, accessory muscle usage or respiratory distress. Breath sounds: Normal breath sounds. No stridor. No wheezing, rhonchi or rales. Abdominal: Palpations: Abdomen is soft. Tenderness: There is no abdominal tenderness. There is no guarding or rebound. Musculoskeletal: Cervical back: Normal range of motion and neck supple. No rigidity or tenderness. Lumbar back: No swelling, edema, deformity, signs of trauma, spasms, tenderness or bony tenderness.Normal range of motion. Comments: No spinal tenderness noted. No rashes. No radiculopathy. No erythema edema. Lymphadenopathy: Cervical: No cervical adenopathy. Skin: General: Skin is warm and dry. Neurological: Mental Status: She is alert and oriented to person, place, and time. ASSESSMENT/PLAN: 1. Acute bilateral low back pain, unspecified whether sciatica present - ICD9: 724.2, ICD10: M54.50(primary diagnosis) 2. Acute sinusitis, recurrence not specified, unspecified location - ICD9: 461.9, ICD10: J01.90 Patient diagnosed with acute lower back pain and acute sinusitis. Do not believe there is any evidence of bacterial infection on exam. Will not start antibiotics at this time. Patient will be placed on prednisone burst. Will not take with NSAIDs. Patient was educated on supportive therapies. Patient will follow up with primary care provider as needed. Patient was instructed to immediately proceedto emergency room for any new, worsening, or symptoms lasting longer than anticipated. The patient's clinical presentation is otherwise unremarkable at this time. Based on exam and clinical finding, the patient is stable for discharge. Plan of care was discussed with patient. Patient verbalizes unde rstanding and agrees to plan of care. This note was generated using [employer] software. It may containerrors in wording, punctuation, or spelling. Roverto Ag APRN.YADI documented in this encounterMem[facility] Instructions* Patient Instructions* Myesha Loco MD - 06/18/2022 11:08 AM EDT Images from the original note were not included. MOUNJARO Complete questionnaire prior to your next visit. Please message us on week 3 of your medication so we can send a new prescription if tolerating it well. Savings Card: [email or web address]/savings-resources Link to [employer] Website tvCompass Medication Guide: [email or web address]/us/mqdzgfqd-ln-yu.pdf?s=mg How to Use Pen: https://uspl.[employer].com/mounjaro/mounjaro.html#ug0 Tirzepatide: Patient drug information What is Mounjaro? Mounjaro is an injectable prescription medicine that is used along with diet and exercise to improve blood sugar (glucose) in adults with type 2 diabetes mellitus. It is not known if Mounjaro can be used in people who have had inflammation of the pancreas (pancreatitis). Mounjaro is not for use in people with type 1 diabetes. It is not known if Mounjaro is safeand effective for use in children under 18 years of age. It works in multiple ways. It helps: - THE BODY RELEASE INSULIN WHEN BLOOD SUGAR IS HIGH - THE BODY REMOVE EXCESS SUGAR FROM THE BLOOD - STOP THE LIVER FROM MAKING AND RELEASING TOO MUCH SUGAR - REDUCE HOW MUCH FOOD IS EATEN - SLOW DOWN HOW QUICKLY FOOD LEAVES THE STOMACH. THIS LESSENS OVER TIME. You can learn about possible side effects of Mounjaro here. Select Safety Information Changes in vision. Tell your healthcare provider if you have changes in vision during treatment with Mounjaro PURPOSE AND SAFETY SUMMARY WITH WARNINGS Important Facts About Mounjaro ([id number]). It is also known as tirzepatide. Mounjaro is an injectable prescription medicine for adults with type 2 diabetes used along with diet and exercise to improve blood sugar (glucose). It is not known if Mounjaro can be used in people who have had inflammation of the pancreas (pancreatitis). Mounjaro is not for use in people with type 1 diabetes. It is not known if Mounjaro is safeand effective for use in children under 18 years of age. Warnings Mounjaro may cause tumors in the thyroid, including thyroid cancer. Watch for possible symptoms, such as a lump or swelling in the neck, hoarseness, trouble swallowing, or shortness of breath. If youhave a symptom, tell your healthcare provider. Do not use Mounjaro if you or any of your family have ever had a type of thyroid cancer called medullary thyroid carcinoma (MTC). Do not use Mounjaro if you have Multiple Endocrine Neoplasia syndrome type 2 (MEN 2). Do not use Mounjaro if you are allergic to tirzepatide or any of the ingredients in Mounjaro. Mounjaro may cause serious side effects, including: Inflammation of the pancreas (pancreatitis). Stop using Mounjaro and call your healthcare provider right away if you have severe pain in your stomach area (abdomen) that will not go away, with or without vomiting. You may feel the pain from your abdomen to your back. Low blood sugar (hypoglycemia). Your risk for getting low blood sugar may be higher if you use Mounjaro with another medicine that can cause low blood sugar, such as a sulfonylurea or insulin. Signs and symptoms of low blood sugar may include dizziness or light-headedness, sweating, confusion or drowsiness, headache, blurred vision, slurred speech, shakiness, fast heartbeat, anxiety, irritability, or mood changes, hunger, weakness and feeling jittery. Serious allergic reactions. Stop using Mounjaro and get medical help right away if you have any symptoms of a serious allergic reaction, including swelling of your face, lips, tongue or throat, problems breathing or swallowing, severe rash or itching, fainting or feeling dizzy, and very rapid heartbeat. Kidney problems (kidney failure). In people who have kidney problems, diarrhea, nausea, and vomiting may cause a loss of fluids (dehydration), which may cause kidney problems to get worse. It is important for you to drink fluids to help reduce your chance of dehydration. Severe stomach problems. Stomach problems, sometimes severe, have been reported in people who use Mounjaro. Tell your healthcare provider if you have stomach problems that are severe or will not go away. Changes in vision. Tell your healthcare provider if you have changes in vision during treatment with Mounjaro. Gallbladder problems. Gallbladder problems have happened in some people who use Mounjaro. Tell yourhealthcare provider right away if you get symptoms of gallbladder problems, which may include pain in your upper stomach (abdomen), fever, yellowing of skin or eyes (jaundice), and rehan-colored stools. Common side effects The most common side effects of Mounjaro include nausea, diarrhea, decreased appetite, vomiting, constipation, indigestion, and stomach (abdominal) pain. These are not all the possible side effects of Mounjaro. Talk to your healthcare provider about any side effect that bothers you or doesn't go away. Tell your healthcare provider if you have any side effects. You can report side effects at 7-932-XID-6309 or www.fda.gov/medwatch. Before using Your healthcare provider should show you how to use Mounjaro before you use it for the first time. Before you use Mounjaro, talk to your healthcare provider about low blood sugar and how to manage it. Review these questions with your healthcare provider: Do you have other medical conditions, including problems with your pancreas or kidneys, or severe problems with your stomach, such as slowed emptying of your stomach (gastroparesis) or problems digesting food? Do you take other diabetes medicines, such as insulin or sulfonylureas? Do you have a history of diabetic retinopathy? Are you or plan to become or or plan to breastfeed? It is not knownif Mounjaro will harm your unborn baby. Do you take control pills by mouth? These may not work as well while using Mounjaro. Your healthcare provider may recommend another type of control when you start Mounjaro or when you increase your dose. Do you take any other prescription medicines or [id number] drugs, vitamins, or herbal supplements? How to take Read the Instructions for Use that come with Mounjaro. Use Mounjaro exactly as your healthcare provider says. Mounjaro is injected under the skin (subcutaneously) of your stomach (abdomen), thigh, or upper arm. Use Mounjaro 1 time each week, at any time of the day. Do not mix insulin and Mounjaro together in the same injection. If you take too much Mounjaro, call your healthcare provider or seek medical advice promptly. Learn more For more information, call 8-078-MhtxoZk ( ) or go to www.[employer]. This information does not take the place of talking with your healthcare provider. Be sure to talk to your healthcare provider about Mounjaro and how to take it. Your healthcare provider is the best person to help you decide if Mounjaro is right for you. Mounjaro and its delivery device base are trademarks owned or licensed by [facility] [employer], its subsidiaries, or affiliates. [employer] FEBRUARY2022 Access Prospect[employer] Online for additional drug information, tools, and databases. Copyright [employer]. All rights reserved. Contributor Disclosures (For additional information see Tirzepatide: Drug information) You must carefully read the Consumer Information Use and Disclaimer below in order to understand and correctly use this information. Brand Names: [place] Mounjaro Warning This drug has been shown to cause thyroid cancer in some animals. It is not known if this happens in humans. If thyroid cancer happens, it may be deadly if not found and treated early. Call your doctor right away if you have a neck mass, trouble breathing, trouble swallowing, or have hoarseness that will not go away. Do not use this drug if you have a health problem called Multiple Endocrine Neoplasia syndrome type2 (MEN 2), or if you or a family member have had thyroid cancer. Have your blood work checked and thyroid ultrasounds as you have been told by your doctor. What is this drug used for? It is used to lower blood sugar in patients with high blood sugar (diabetes). What do I need to tell my doctor BEFORE I take this drug? If you are allergic to this drug; any part of this drug; or any other drugs, foods, or substances. Tell your doctor about the allergy and what signs you had. If you have type 1 diabetes. Do not use this drug to treat type 1 diabetes. If you have ever had pancreatitis. If you have stomach or bowel problems. This is not a list of all drugs or health problems that interact with this drug. Tell your doctor and pharmacist about all of your drugs (prescription or OTC, natural products, vitamins) and health problems. You must check to make sure that it is safe for you to take this drug with all of your drugs and health problems. Do not start, stop, or change the dose of any drug withoutchecking with your doctor. What are some things I need to know or do while I take this drug? Tell all of your health care providers that you take this drug. This includes your doctors, nurses,pharmacists, and dentists. Wear disease medical alert ID (identification). Follow the diet and workout plan that your doctor told you about. Check your blood sugar as you have been told by your doctor. Do not drive if your blood sugar has been low. There is a greater chance of you having a crash. control pills may not work as well to prevent . If you take control pills, youmay need to switch to another type of hormone-based control like a vaginal ring if your doctor tells you to. If another type of hormone-based control is not an option, use some other kindof control also, like a condom. Do this for 4 weeks after starting this drug and for 4 weeks each time the dose is raised. This drug may prevent other drugs taken by mouth from getting into the body. If you take other drugs by mouth, you may need to take them at some other time than this drug. Talk with your doctor. It may be harder to control blood sugar during times of stress such as fever, infection, injury, orsurgery. A change in physical activity, exercise, or diet may also affect blood sugar. Talk with your doctor before you drink alcohol. Do not share with another person even if the needle has been changed. Sharing your tray or pen may pass infections from one person to another. This includes infections you may not know you have. If you cannot drink liquids by mouth or if you have upset stomach, throwing up, or diarrhea that does not go away; you need to avoid getting dehydrated. Contact your doctor to find out what to do. Dehydration may lead to new or worse kidney problems. A severe and sometimes deadly pancreas problem (pancreatitis) has happened with other drugs like this one. Tell your doctor if you are , plan on getting , or are breast- feeding. You will need to talk about the benefits and risks to you and the baby. What are some side effects that I need to call my doctor about right away? WARNING/CAUTION: Even though it may be rare, some people may have very bad and sometimes deadly side effects when taking a drug. Tell your doctor or get medical help right away if you have any of thefollowing signs or symptoms that may be related to a very bad side effect: Signs of an allergic reaction, like rash; hives; itching; red, swollen, blistered, or peeling skin with or without fever; wheezing; tightness in the chest or throat; trouble breathing, swallowing, ortalking; unusual hoarseness; or swelling of the mouth, face, lips, tongue, or throat. Signs of kidney problems like unable to pass urine, change in how much urine is passed, blood in the urine, or a big weight gain. Signs of gallbladder problems like pain in the upper right belly area, right shoulder area, or between the shoulder blades; yellow skin or eyes; fever with chills; bloating; or very upset stomach or throwing up. Signs of a pancreas problem (pancreatitis) like very bad stomach pain, very bad back pain, or very bad upset stomach or throwing up. Dizziness or passing out. A fast heartbeat. Change in eyesight. Low blood sugar can happen. The chance may be raised when this drug is used with other drugs for diabetes. Signs may be dizziness, headache, feeling sleepy or weak, shaking, fast heartbeat, confusion, hunger, or sweating. Call your doctor right away if you have any of these signs. Follow what you have been told to do for low blood sugar. This may include taking glucose tablets, liquid glucose, or some fruit juices. What are some other side effects of this drug? All drugs may cause side effects. However, many people have no side effects or only have minor sideeffects. Call your doctor or get medical help if any of these side effects or any other side effects bother you or do not go away: Constipation, diarrhea, stomach pain, upset stomach, throwing up, or feeling less hungry. Heartburn. These are not all of the side effects that may occur. If you have questions about side effects, call your doctor. Call your doctor for medical advice about side effects. You may report side effects to your national health agency. How is this drug best taken? Use this drug as ordered by your doctor. Read all information given to you. Follow all instructionsclosely. It is given as a shot into the fatty part of the skin on the top of the thigh, belly area, or upperarm. If you will be giving yourself the shot, your doctor or nurse will teach you how to give the shot. Keep taking this drug as you have been told by your doctor or other health care provider, even if you feel well. Take the same day each week. Move site where you give the shot each time. Take with or without food. Wash your hands before and after use. Do not use if the solution is leaking or has particles. This drug is colorless to a faint yellow. Do not use if the solution changes color. If you are also using insulin, you may inject this drug and the insulin in the same area of the body but not right next to each other. Do not mix this drug in the same syringe with insulin. Do not move this drug from the pen to a syringe. Each pen is for one use only. Throw away any part of the used pen after the dose is given. Throw away needles in a needle/sharp disposal box. Do not reuse needles or other items. When the box is full, follow all local rules for getting rid of it. Talk with a doctor or pharmacist if you have any questions. What do I do if I miss a dose? If it is within 4 days after the missed dose, take the missed dose and go back to your normal day. If it has been more than 4 days since the missed dose, skip the missed dose and go back to your normal day. Do not take 2 doses at the same time or extra doses. How do I store and/or throw out this drug? Store in a refrigerator. Do not freeze. Do not use if it has been frozen. If needed, each pen may be stored at room temperature for up to 21 days. If you store at room temperature, throw away any part not used after 21 days. Protect from heat. Store in the original container to protect from light. Keep all drugs in a safe place. Keep all drugs out of the reach of children and pets. Throw away unused or drugs. Do not flush down a toilet or pour down a drain unless you are told to do so. Check with your pharmacist if you have questions about the best way to throw out drugs. There may be drug take-back programs in your area. General drug facts If your symptoms or health problems do not get better or if they become worse, call your doctor. Do not share your drugs with others and do not take anyone else's drugs. Some drugs may have another patient information leaflet. If you have any questions about this drug,please talk with your doctor, nurse, pharmacist, or other health care provider. If you think there has been an overdose, call your poison control center or get medical care right away. Be ready to tell or show what was taken, how much, and when it happened. Last Reviewed [id number] Consumer Information Use and Disclaimer This generalized information is a limited summary of diagnosis, treatment, and/or medication information. It is not meant to be comprehensive and should be used as a tool to help the user understand and/or assess potential diagnostic and treatment options. It does NOT include all information about conditions, treatments, medications, side effects, or risks that may apply to a specific patient. Itis not intended to be medical advice or a substitute for the medical advice, diagnosis, or treatment of a health care provider based on the health care provider's examination and assessment of a patient's specific and unique circumstances. Patients must speak with a health care provider for complete information about their health, medical questions, and treatment options, including any risks or benefits regarding use of medications. This information does not endorse any treatments or medications as safe, effective, or approved for treating a specific patient. [employer]. and its affiliatesdisclaim any warranty or liability relating to this information or the use thereof. The use of thisinformation is governed by the Terms of Use, available at https://www.VouchedFor.com/en/know/ynpxwpjp-rflnhsyycbcnm-nxuvh. documented [facility] History of Present illness Narrative* Fabian Brasher MD - 06/18/2022 10:21 AM EDT Images from the original note were not included. BMI Obesity Medicine Consult 06/18/22 Consultation requested by Leelee Tobar APRN.CNP for an opinion regarding Obesity. My final recommendations will be communicated back to the requesting physician by way of shared Medical record orletter to requesting physician via US mail. Patient Summary: Leelee Zamora is a 27 year old female with obesity who [facility] for an initial evaluation of her obesity and is interested in behavioral , pharmacological, and non-surgical weight loss approaches. Primary reason for wanting obesity treatment : I don't want to be fat anymore Overall goal: 150-160 lbs Weight History: She reports a strong family history of obesity and early onset (puberty) weight gain. She states her weight gain is related to the following factors, including depression, eating habits. Had Ileostomy in August 2021 (for 4th degree tear after giving ) and got down to 200 lbs. States gained weight back after reversal. Weight Graph: (please see graph scanned in chart) Obesigenic Medications: NO AOM: Tried Metformin but states she got diarrhea so d/c Diet: Quality of diet: 24hr recall suggests unhealthy diet. Characterization of diet:Unstructured, unhealthy snacking, excessive cravings, and evening snacking. Wrister of impaired eating habits:excessive hunger, lack of satiety, boredom, emotion, and stress Eating Disorder no AM: eggs, pancakes, cheese, still Lunch: Pizza, fruit, veggies PM: veggies, protein (mainly chicken), potatos Snacks: 2 hours after breakfast (candy bar(s)5); between lunch and dinner: ice cream, candy, cereal, popcorn because she does not feel full; after dinner: ice cream, candy Beverages: carbonated water but sometimes will have soda (6 cans/day but this happens 1x/month), sometimes orange juice Diet History: Past weight loss attempts? anti-obesity medications Metformin- developed SE. Tried diets including keto. Exercise: Regular exercise: Yes, walks 1/2 mile in AM and sometimes at night. Strength/resistance exercise:No Barriers to regular exercise? Yes, bone spurs on feet Work-related activity:None . Occupation: N/A ?Sleep: Duration: 6 hours. LETA NO ; CPAP NO Quality:poor, Numerous awakenings:Sleep-wake cycle disruption:No STOP BANG 1. Snoring : Do you snore loudly (louder than talking, through closed doors)? NO 2. Tired : Do you often feel tired, fatigued, or sleepy during daytime? NO 3. Observed : Has anyone observed you stop breathing during sleep?NO 4. Blood Pressure: treated for high blood pressure?NO 5. BMI : BMI more than 35 kg/m2? YES 6. Age : Age over 50 yr old? NO 7. Neck circumference: Neck circumference greater than 40 cm?NO 8. Gender : Gender male? NO STOP BANG Score 1 , low ??Stress: Some, Cause:trauma from daughter's , family, feelings of weight Obesity Related Comorbidities: Prior Weight Loss Surgery:No ACTIVE PROBLEM LIST Class 3 Severe Obesity Without Serious Comorbidity With Body Mass Index (Bmi) of 45.0 to 49.9 in Adult (Hcc) Vitamin D Deficiency Saman (Generalized Anxiety Disorder) History of Gastroesophageal Reflux (Gerd) Allergic Rhinitis, Unspecified Ex-Smoker Psoriasis Encounter for Insertion of Mirena IUD Acute Deep Vein Thrombosis (Dvt) of Popliteal Vein of Right Lower Extremity (Hcc) History of Pulmonary Embolism No history of MS, COPD, asthma, peptic ulcer dx, hyperlipidemia, gallstones, hypothyroidism, hypertension, cancer, CVA, T2DM, gout, kidney stones, CKD. PAST SURGICAL HISTORY Procedure Laterality Date CYST EXCISION 2016 right leg D&C, DIAG AND/OR THERAPEUTIC 2019 EXTRACTION, ERUPTED TOOTH OR EXPOSED ROOT (ELEVATION AND/OR FORCEPS REMOVAL) 2012 LOCAL REVISION OF ILESTOMY 02/24/2022 Obesity ROS/ FHx GEN: Fatigue:No CV: h/o palpitations/cardiac arrhythmia, CP:No PULM: Asthma:No GI: GERD:yes, not on meds; Gallstones: No; Fatty liver disease:No; H/o hernia:No MSK: Joint Pain:No : Nephrolithiasis:No; Stress incontinence:No Symptoms of PCOS(women):No No history of thyroid disorder,diabetes,cold intolerance,heat,intolerance,polydypsia NEURO: Migraines/CHO:No; H/o seizures: No Glaucoma:No; Cataracts No Symptoms of pseudotumor cerebri:No The physical systems reviewed reveal no pathological symptoms that are pertinent to this visit August 2021- PE, right arm DVT- February 2022 Family History Problem Relation Age of Onset Diabetes Father Hypertension Father Heart disease Mother arythmia Kidney Disease Maternal Grandmother other (lupus) Maternal Grandmother Diabetes Paternal Grandfather Hypertension Paternal Grandfather Colon Cancer Paternal Grandmother late 50's Coronary Artery Disease Paternal Grandmother 40's Diabetes Paternal Grandmother Hypertension Paternal Grandmother Cervical Cancer Paternal Aunt Uterine Cancer Paternal Aunt Thyroid Cancer Paternal Aunt Alzheimer's Disease No Family History Breast Cancer No Family History Ovarian cancer No Family History Hyperlipidemia No Family History Thyroid No Family History Seizures No Family History Stroke No Family History Maternal Aunt had blood clots PREV: PAP UTD, Mammogram n/a and Colonoscopy n/a Social History Social History Tobacco Use Smoking status: Former Years: 4.00 Types: Cigarettes Smokeless tobacco: Never Tobacco comments: 5 to 6 cigarettes Vaping Use Vaping Use: Never used Substance Use Topics Alcohol use: No Drug use: No PE BP 131/71 (BP Site: Left Arm, BP Position: Sitting, BP Cuff Size: Large Adult) Pulse 78 Ht 163.2 cm (5' 4.26) Wt 123.1 kg (271 lb 4.8 oz) LMP 05/12/2022 (Approximate) BMI 46.19 kg/m NAD. General adiposity. Waist circumference not measured. No acanthosis, no lipoma, no pallor. No supraclavicular adiposity. No dorsal adiposity. PERRL. Tongue moist, pink. No OP crowding. Good dental hygiene RRR nl. s1s2 CTAB Abdomen Soft Large pannus; + striae. NT/ND. Surgical scars appreciated on abd No peripheral edema Results: reviewed with the patient Appointment on 04/24/2022 Component Date Value Ref Range Status WBC 04/24/2022 7.49 3.70 - 11.00 k/uL Final RBC 04/24/2022 4.62 3.90 - 5.20 m/uL Final Hemoglobin 04/24/2022 11.6 11.5 - 15.5 g/dL Final Hematocrit 04/24/2022 37.8 36.0 - 46.0 % Final MCV 04/24/2022 81.8 80.0 - 100.0 fL Final MCH 04/24/2022 25.1 (A) 26.0 - 34.0 pg Final MCHC 04/24/2022 30.7 30.5 - 36.0 g/dL Final RDW-CV 04/24/2022 13.9 11.5 - 15.0 % Final Platelet Count 04/24/2022 331 150 - 400 k/uL Final MPV 04/24/2022 8.7 (A) 9.0 - 12.7 fL Final Neut% 04/24/2022 66.7 % Final Abs Neut 04/24/2022 5.00 1.45 - 7.50 k/uL Final Lymph% 04/24/2022 25.2 % Final Abs Lymph 04/24/2022 1.89 1.00 - 4.00 k/uL Final Glacier% 04/24/2022 6.3 % Final Abs Glacier 04/24/2022 0.47 <0.87 k/uL Final Eosin% 04/24/2022 1.1 % Final Abs Eosin 04/24/2022 0.08 <0.46 k/uL Final Baso% 04/24/2022 0.3 % Final Abs Baso 04/24/2022 <0.03 <0.11 k/uL Final Immature Gran % 04/24/2022 0.4 % Final Abs Immature Gran 04/24/2022 0.03 <0.10 k/uL Final NRBC 04/24/2022 0.0 /100 WBC Final Absolute nRBC 04/24/2022 <0.01 <0.01 k/uL Final Diff Type 04/24/2022 Auto Final TSH 04/24/2022 1.760 0.270 - 4.200 mIU/L Final Protein, Total 04/24/2022 7.0 6.3 - 8.0 g/dL Final Albumin 04/24/2022 4.1 3.9 - 4.9 g/dL Final Calcium, Total 04/24/2022 9.2 8.5 - 10.2 mg/dL Final Bilirubin, Total 04/24/2022 0.9 0.2 - 1.3 mg/dL Final Alkaline Phosphatase 04/24/2022 80 34 - 123 U/L Final AST 04/24/2022 15 13 - 35 U/L Final ALT 04/24/2022 19 7 - 38 U/L Final Glucose 04/24/2022 96 74 - 99 mg/dL Final BUN 04/24/2022 9 7 - 21 mg/dL Final Creatinine 04/24/2022 0.52 (A) 0.58 - 0.96 mg/dL Final Sodium 04/24/2022 138 136 - 144 mmol/L Final Potassium 04/24/2022 4.2 3.7 - 5.1 mmol/L Final Chloride 04/24/2022 105 97 - 105 mmol/L Final CO2 04/24/2022 25 22 - 30 mmol/L Final Anion Gap 04/24/2022 8 (A) 9 - 18 mmol/L Final Estimated Glomerular Filtration Ra* 04/24/2022 132 >=60 mL/min/1.73m Final Results Only on 04/01/2022 Component Date Value Ref Range Status Per Diem Registered Nurse 04/01/2022 Final Value:Provider MARION your patient LEELEE ZAMORA started their Nichelle program on 04-07-2022 but has NOT completed their Nichelle program, time has . Nichelle program: [facility] WHAT TO EXPECT AT YOUR APPOINTMENT Impression: Leelee Zamora is a 27 year old female with Class III obesity (Body mass index is 46.19 kg/m .) whohas early onset obesity with gradual weight gain. The causes of her obesity are multifactorial, biological, psychological and social and environmental. Specific factors include a genetic component related to a strong family of obesity, increased consumption of high calorie/process foods, irregular eating patterns , suboptimal physical activity, and poor sleep quality. She has few weight-related medical comorbidities which increase her cardiovascular mortality risk. There are additional metabolic obesity complications including vitamin D deficiency. Other medical conditions as above. Regarding her lifestyle, as above, she has several behavioral contributors; her physical activity is regular but not at the recommended levels of 200min per week. Overall, it is clear that her quality of life is severely compromised by her weight. It is likely acombination of weight loss therapies will be needed. She appears motivated today. Plan: -- Based on the severity and resistance of the obesity to more conservative weight loss approaches,I believe a surgical intervention is the best and most appropriate salvage determiner therapeutic option.Discussed in detail and patient states her Aunt did not have a good response with weight loss after bypass so she is not sure. She has also had many surgeries after giving and says she does not want to do more surgeries right now. She would like to pursue the pharmacological route for weight lossat this time. -- Patient does report a Fhx of paternal Aunt with Thyroid cancer who is now estranged. Patient is unsure what type of cancer. Did discuss CI of Mounjaro with Medullary cancer given studies showing Medullary cancer cells in animal models. Patient understands the risks and would like to proceed withthis medication. Will start Mounjaro 2.5 mg weekly for 4 weeks. I have discussed the medication's MOA, side effects, and indications in detail with the patient. Patient is to notify physician with any adverse effects to the medication. She understands and is in agreement with the plan. -- We discussed several strategies to track food intake and increase mindfulness around eating. Shewas counseled on Food records, Meal replacements, and Low carbohydrate diet. -- Would benefit from meeting with our dietitians -- Patient states she has disordered eating habits, sent binge eating questionnaire via [employer] that patient will complete. Would benefit from meeting with psychology as well. Consider joining [facility] sessions. -- Encouraged the patient to improve her physical activity. Although cardiovascular exercise is most beneficial for weight loss initially, we discussed healthy muscle from a combination of resistancetraining and cardiovascular exercise is the best salvage determiner plan. An overall goal of 200 minutes perweek of exercise has been effective in weight loss and maintenance. RTC in 2 months. Myesha Loco MD Obesity Medicine Fellow [facility] Attending Note: I have personally seen and examined the patient independently. I have discussed the case with the obesity medicine fellow (Dr. Myesha Loco MD) and agree with the assessment and plan as documented in the fellow's note. Marcela Brasher MD MSc FTOS I spent a total of 65 minutes on the date of the service which included preparing to see the patient, [id number] patient care, completing clinical documentation, obtaining and/or reviewing separately obtained history, performing a medically appropriate examination, counseling and educating the pat ient/family/caregiver, ordering medications, tests, or procedures, independently interpreting results (not separately reported), communicating results to the patient/family/caregiver, and care coordination (not separately reported). 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 Exam under anesthesia Surgeon: Kelsea Rodriguez Resident/Fellow/Other Supervisor [employer]: Jeffrey Meek Anesthesia: LMA Estimated Blood Loss (mL): none Specimen: no Complications: None Findings: No rectovaginal fistula appreciated on exam; rectocele present; weak, thin, short perineum with absent anterior external anal sphincter Patient Returned To/Condition: PACU / stable Operative Report Dictated: Dictation: not applicable - note contains Operative Report Operative Report: PROCEDURE IN DETAIL: The patient was interviewed in the preop holding area by the surgical team, where the risks, benefits, and indication of the procedure were reviewed. She was then transferred to the operating suite where the patient was properly identified and the procedure was confirmed. When adequate anesthesia was obtained, the patient was prepped and draped in a dorsal lithotomy position. A time-out was performed. No antibiotics were given. Retractors were placed into the vagina and then carefully inspected from the posterior fornix to the introitus bilaterally and posteriorly. No fistulous tract was appreciated. A rectal exam was performed, and the posterior vaginal wall was noted to be exceptionally thin. The anterior external anal sphincter was notably absent and there was scar tissue along the shortened perineum. No fistula was noted. A methylene blue dye test was performed by inserting methylene-blue tinged normal saline via catheter into the rectum. No appreciable fistula was observed. Several points through the posterior vaginal wall and the perineum were probed with lacrimal dilatators, and no fistula was appreciated. Dr Steinhagen was asked to come to the OR to consult. She performed an exam under anesthesia as well, which is dictated separately. No further intervention was warranted at this point. The patient was then awakened from anesthesia, having tolerated procedure well, and was taken to the recovery room in stable condition. All sponge, needle, and instrument counts were correct at the end the case. Maria A Scott MD, Fellow Dr. Rodriguez was present for all critical portions of the procedure. Attestation: Note Completion: I am a:Resident/Fellow Attending AttestationI was present for the entire procedure Electronic Signatures: Maria A Scott ( (Fellow)) (Signed 11-Jun-2022 13:54) Authored: Post Operative Note, Note Completion Darryl Rodriguez () (Signed 12-Jun-2022 07:04) Authored: Note Completion Co-Signer: Post Operative Note, Note Completion Last Updated: 12-Jun-2022 07:04 by Darryl Rodriguez)[facility]08-31-2022 NoteClinical Note - Pharmacy v2: Education: Document TopicMedication Education MedicationMeds to Beds: Patient accepts Meds to Beds service at discharge, please send prescriptions to [facility]. Sources used to confirm home medication list: Patient interview/ Chart review High alert medications: N/A OARRS: overdose risk score 430. May consider prescribing Narcan given occasional control fill history. - oxycodone last dispensed 02/18/22 for 7 days supply Additional comments: Patient reports stop taking metformin due to diarrhea. Per [facility] encounter on 05/22 recommended to stop if side effects continue. Patient states has Mirena IUD. Medication home list complete Please reach out via RVX for questions Mary Ramirez [facility] PGY1 Resident [facility] services Is This Intervention Medication Reconciliation Relatedyes Time Required5 - 10 minutes Additional NotesMed Status: Patient Currently Takes Medications Drug Name: ocular lubricant ophthalmic solution Instructions: 1 drop(s) to each affected eye 3 times a day, As Needed Drug Name: levonorgestrel 52 mg intrauterine device Instructions: 1 each intrauterine once Allergy: Allergies Summary No Known Allergies Electronic Signatures: Mary Ramirez ([facility]) (Signed 11-Jun-2022 12:02) Authored: Education, Allergy Jer Dowling ([facility]) (Signed 11-Jun-2022 17:12) Co-Signer: Education, Allergy Last Updated: 11-Jun-2022 17:12 by Jer Dowling ([facility]08-31-2022 NoteHistory of Present Illness: /Lactating: Are You no Are You Currently Breastfeedingno History Present Illness: Reason for surgery: weak rectovaginal septum, rectocele, possible rectovaginal fistula HPI: 27y with weak rectovaginal septum, rectocele, possible rectovaginal fistula presenting for EUA, posterior repair, possible rectovaginal fistula repair. ObGynHx: 04/2021 FAVD 8#9, 4th degree laceration repaired, c/b breakdown of repair on PPD#3, with revision on PPD#7. Has continued to have stool in the vagina since delivery, has been treated for an abscess and C diff. Had second revision which also failed. Had ileostomy for 6 months, was reversed 02/10/22 after methylene dye test was negative. Continues to have stool in vagina. Currently has IUD in place PSH: - 2020 rectovaginal fistula repair, diverting ileostomy - 02/2022 Ileostomy reversal Meds: metformin 2000mg daily All: morphine Home Medication Review: Home Medications Reviewed: yes Impression/Procedure: Impression and Planned Procedure: EUA, posterior repair, possible rectovaginal fistula repair ERAS (Enhanced Recovery After Surgery): ERAS Patient: no Physical Exam by System: Constitutional: Well developed, no distress, alert and cooperative Eyes: clear sclera Head/Neck: NC/AT Respiratory/Thorax: Normal respiratory effort Cardiovascular: HR WNL Genitourinary: Exam to be complete in the OR, please see last office note for prior exam Extremities: No calf swelling or tenderness Psychological: Appropriate mood and affect Skin: Warm and dry, no lesions, no rashes Consent: COVID-19 Consent: COVID-19 Risk ConsentSurgeon has reviewed castro risks related to the risk of gopi COVID-19 and if they contract COVID-19 what the risks are. Attestation: Note Completion: I am a: Resident/Fellow Attending AttestationI saw and evaluated the patient. I personally obtained the castro and critical portions of the history and physical exam or was physically present for castro and critical portions performed by the resident/fellow. I reviewed the resident/fellows documentation and discussed the patient with the resident/fellow. I agree with the resident/fellows medical decision making as documented in the note. I personally evaluated the patient [id number] Electronic Signatures: Darryl Rodriguez) (Signed 11-Jun-2022 11:02) Authored: Note Completion Co-Signer: History of Present Illness, Home Medication Review, Impression/Procedure, ERAS, Physical Exam, Consent, Note Completion Marley Forrest (Resident)) (Signed 10-Jun-2022 14:13) Authored: History of Present Illness, Home Medication Review, Impression/Procedure, ERAS, Physical Exam, Consent, Note Completion Last Updated: 11-Jun-2022 11:02 by Darryl Rodriguez)[facility]08-11-2022 Instructions* Patient Instructions* Leelee Tobar APRN.CNP - 05/22/2022 8:34 AM EDT 1.) May schedule consult with bariatric medicine. 2.) You may stop the metformin due to side effects. 3.) Continue work on eating a well balanced diet. I recommend tracking food, [employer] phone jessica. Work on increasing protein, veggies, and exercise. 4.) Follow up as needed. [facility] History of Present illness Narrative* Leelee Tobar APRN.CNP - 05/22/2022 8:20 AM EDT This is a 27 year old female who presents today with: Patient presents with: Follow Up: weight check HISTORY OF PRESENT ILLNESS: Leelee Zamora is a 27 year old female. Patient presents with: Follow Up: weight check Patient of Dr. Diane here in the office for 1 month check. Saw this patient last month for weight gain concerns. Full work-up was negative for any causes for her symptoms. Started on metformin XR 500 mg twice daily, instructed patient to work on lifestyle changes at home. Refers that she has been working on eating well balanced meals and trying to watch portions. Refers that she walks with daughter daily. Having diarrhea with metformin use. Would like consult to bariatric medicine to discuss weight loss options. Gained 4 lbs since last visit. PAST MEDICAL HISTORY: PAST MEDICAL HISTORY Diagnosis Date Acute deep vein thrombosis (DVT) of popliteal vein of right lower extremity ([facility]) 02/2022 Allergic rhinitis, unspecified 12/16/2018 Chlamydia 16 YO Encounter for insertion of mirena IUD 12/24/2021 Ex-smoker 12/16/2018 Started at age 19 up to 1/2-1 PPD, quit 05/2018 SAMAN (generalized anxiety disorder) 12/16/2018 Seeing Klaus Gonzalez at the [facility] center. History of gastroesophageal reflux (GERD) 12/16/2018 Obesity, Class III, BMI 40-49.9 (morbid obesity) ([facility]) 03/09/2018 Psoriasis 12/16/2018 Vitamin D deficiency 12/16/2018 PAST SURGICAL HISTORY Procedure Laterality Date CYST EXCISION 2016 right leg D&C, DIAG AND/OR THERAPEUTIC 2019 EXTRACTION, ERUPTED TOOTH OR EXPOSED ROOT (ELEVATION AND/OR FORCEPS REMOVAL) 2012 LOCAL REVISION OF ILESTOMY 02/24/2022 ALLERGIES Morphine and Tree Nut MEDICATIONS Current Outpatient Medications Medication Sig metFORMIN ER (GLUCOPHAGE XR) 500 mg 24 hr tablet Take 1 tablet by mouth twice daily. No current facility-administered medications for this visit. FAMILY HISTORY Problem Relation Age of Onset Heart disease Mother arythmia Diabetes Father Hypertension Father Kidney Disease Maternal Grandmother other (lupus) Maternal Grandmother Colon Cancer Paternal Grandmother late 50's Coronary Artery Disease Paternal Grandmother 40's Diabetes Paternal Grandmother Hypertension Paternal Grandmother Diabetes Paternal Grandfather Hypertension Paternal Grandfather Cervical Cancer Paternal Aunt Uterine Cancer Paternal Aunt Thyroid Cancer Paternal Aunt Alzheimer's Disease No Family History Breast Cancer No Family History Ovarian cancer No Family History Hyperlipidemia No Family History Thyroid No Family History Seizures No Family History Stroke No Family History Social History Tobacco Use Smoking status: Former Years: 4.00 Types: Cigarettes Smokeless tobacco: Never Tobacco comments: 5 to 6 cigarettes Vaping Use Vaping Use: Never used Substance Use Topics Alcohol use: No Drug use: No REVIEW OF SYSTEMS GENERAL: No weight loss, malaise or fevers/chills HEENT: Negative for frequent or significant headaches, No changes in hearing or vision. NECK: Negative for lumps, goiter, pain and significant neck swelling RESPIRATORY: Negative for cough, hemoptysis, wheezing, dyspnea or shortness of breath CARDIOVASCULAR: Negative for chest pain, leg swelling, orthopnea, or palpitations GI: No nausea, vomiting, or diarrhea/constipation. No hematochezia/melena. No heartburn or reflux symptoms. : No history of dysuria, frequency or incontinence MUSCULOSKELETAL: Negative for joint pain or swelling. SKIN: Negative for lesions, rash, and itching ENDOCRINE: Negative for cold or heat intolerance, polyuria, polydipsia and goiter NEURO: No history of headaches, syncope, paralysis, seizures or tremors MOOD: Negative for depression, anxiety, or suicidal ideation. EXAM: BP 100/68 Pulse 83 Resp 16 Wt 122 kg (269 lb) LMP 03/20/2022 SpO2 98% BMI 47.65 kg/m PHYSICAL EXAM: General Appearance: Well appearing, alert, in no acute distress, well-hydrated, well nourished. Skin: Skin color, texture, turgor normal, no suspicious rashes or lesions. Head: Normocephalic, no masses, lesions, tenderness or abnormalities. Eyes: Anicteric sclera. Extraocular movements are intact. Neck: Supple, no adenopathy; thyroid symmetric, normal size, no bruits. Lungs: Lungs clear to auscultation. No wheezing, rhonchi, rales. Heart: RRR without murmur, gallop, or rubs. No ectopy. Extremities: No deformities, edema, skin discoloration, clubbing or cyanosis. Good capillary refill. Peripheral Pulses: Normal, Capillary refill <2secs, strong peripheral pulses, Pulses palpable. Neurologic: Gait normal. Sensation grossly intact. ASSESSMENT/PLAN: 1. Weight gain - ICD9: 783.1, ICD10: R63.5 - May schedule appointment with bariatric medicine for further evaluation and treatment options. - Continue to work on eating a well-balanced diet, increase protein, vegetables, and get some form of exercise. - Recommend tracking food. - May stop metformin due to side effects. - [facility] Follow-up as needed or sooner if symptoms get worse or do not improve. Discussed treatment plan and patient voices understanding. Patient's questions answered appropriately. Medications and potential side effects were discussed and patient voices understanding. Leelee Tobar APRN.CNP This note was partially generated using [employer] voice recognition system. Note was reviewed for accuracy. There may be minor misspellings or grammar miscues with [employer] voice recognition. documented [facility] encounter[facility] Instructions* Patient Instructions* Leelee Tobar APRN.CNP - 04/24/2022 9:58 AM EDT 1.) Start metformin 500 mg twice daily. 2.) Try to increase protein and veggies 3.) Get some form of exercise, [employer] is great. 4.) Recommend tracking food, [employer] jessica on phone 5.) Follow up 1 month. [facility] History of Present illness Narrative* Leelee Tobar APRN.CNP - 04/24/2022 9:40 AM EDT This is a 26 year old female who presents today with: Patient presents with: Acute Visit: weight gain HISTORY OF PRESENT ILLNESS: Leelee Zamora is a 26 year old female. Patient presents with: Acute Visit: weight gain Patient of Dr. Diane here in the office to discuss concerns for weight gain. Has gained 10 lbs since fall 2020. Has been taking nightly walks and working on diet the past month. Feels like she is always hungry. Has been preparing most of her food at home. Has not tracked food. Has difficulty with planning meals due to support from significant other. Is considering weight loss medication. Some increased fatigue, refers her thyroid hasn't been checked for several years. PAST MEDICAL HISTORY: PAST MEDICAL HISTORY Diagnosis Date Allergic rhinitis, unspecified 12/16/2018 Ex-smoker 12/16/2018 Started at age 19 up to 12-1 PPD, quit 05/2018 SAMAN (generalized anxiety disorder) 12/16/2018 Seeing Klaus Gonzalez at the [facility] center. History of gastroesophageal reflux (GERD) 12/16/2018 Obesity, Class III, BMI 40-49.9 (morbid obesity) ([facility]) 03/09/2018 Psoriasis 12/16/2018 Vitamin D deficiency 12/16/2018 PAST SURGICAL HISTORY Procedure Laterality Date CYST EXCISION 2017 right leg EXTRACTION, ERUPTED TOOTH OR EXPOSED ROOT (ELEVATION AND/OR FORCEPS REMOVAL) 2012 ALLERGIES Morphine and Tree Nut MEDICATIONS Current Outpatient Medications Medication Sig cetirizine (ZYRTEC) 10 mg tablet Take 1 tablet by mouth once daily. fluticasone (FLONASE) 50 mcg/actuation nasal spray Use 2 Sprays in each nostril once daily. Rinse mouth after use. albuterol HFA (VENTOLIN HFA) 90 mcg/actuation inhaler Inhale 2 Puffs as instructed every 4 hours asneeded for wheezing/shortness of breath. Lactobacillus acidophilus (FLORAJEN ACIDOPHILUS) 20 billion cell cap Take 1 capsule by mouth once daily. clomiPHENE (SEROPHENE) 50 mg tablet Take by mouth as directed. (Patient not taking: Reported on 12/29/2020 ) EPINEPHrine (EPIPEN JR) 0.15 mg/0.3 mL auto-injector EPINEPHrine EPIPEN JR 2-ROSIE 0.15 MG/0.3ML SOAJuse as directed EPINEPHRINE [id number] Maria Esther Grover MD [birth year]28-2012 Maria Esther Grover MD [facility] ([id number]) (Patient not taking: Reported on 12/29/2020) metFORMIN (GLUCOPHAGE) 500 mg tablet Take 1 tablet by mouth three times daily. (Patient not taking:Reported on 12/29/2020 ) progesterone micronized (PROMETRIUM) 200 mg capsule Take 1 capsule by mouth as directed. (Patient not taking: Reported on 12/29/2020 ) Oaqqadmririqgee-Zgxudztgb-LG (BROMFED DM) 2-30-10 mg/5 mL syrup Take 10 mL by mouth four times daily as needed. (Patient not taking: Reported on 01/09/2020 ) metroNIDAZOLE (FLAGYL) 500 mg tablet Take 1 tablet by mouth twice daily. hydrocortisone 2.5 % cream Apply to affected areas on face, ears, chest twice a day for up to 2 weeks at a time as needed. (Patient not taking: Reported on 11/05/2019 ) ketoconazole (NIZORAL) 2 % shampoo Lather into scalp, ears, brows for 5 minutes then rinse. Use 3 times per week. (Patient not taking: Reported on 11/05/2019 ) Clobetasol Propionate (TEMOVATE) 0.05 % external solution Apply to affected areas on scalp once a day M-F. (Patient not taking: Reported on 11/05/2019 ) cholecalciferol, Vitamin D3, (VITAMIN D3) 50,000 unit cap capsule Take 1 capsule by mouth once eachweek. (Patient not taking: Reported on 01/09/2020 ) No current facility-administered medications for this visit. FAMILY HISTORY Problem Relation Age of Onset Heart disease Mother arythmia Diabetes Father Hypertension Father Kidney Disease Maternal Grandmother other (lupus) Maternal Grandmother Colon Cancer Paternal Grandmother late 50's Coronary Artery Disease Paternal Grandmother 40's Diabetes Paternal Grandmother Hypertension Paternal Grandmother Diabetes Paternal Grandfather Hypertension Paternal Grandfather Cervical Cancer Paternal Aunt Uterine Cancer Paternal Aunt Thyroid Cancer Paternal Aunt Alzheimer's Disease No Family History Breast Cancer No Family History Ovarian cancer No Family History Hyperlipidemia No Family History Thyroid No Family History Seizures No Family History Stroke No Family History Social History Tobacco Use Smoking status: Former Smoker Years: 4.00 Types: Cigarettes Smokeless tobacco: Never Used Tobacco comment: 5 to 6 cigarettes Vaping Use Vaping Use: Never used Substance Use Topics Alcohol use: No Drug use: No REVIEW OF SYSTEMS GENERAL: + Weight Gain HEENT: Negative for frequent or significant headaches, No changes in hearing or vision. NECK: Negative for lumps, goiter, pain and significant neck swelling RESPIRATORY: Negative for cough, hemoptysis, wheezing, dyspnea or shortness of breath CARDIOVASCULAR: Negative for chest pain, leg swelling, orthopnea, or palpitations GI: No nausea, vomiting, or diarrhea/constipation. No hematochezia/melena. No heartburn or reflux symptoms. : No history of dysuria, frequency or incontinence MUSCULOSKELETAL: Negative for joint pain or swelling. SKIN: Negative for lesions, rash, and itching ENDOCRINE: Negative for cold or heat intolerance, polyuria, polydipsia and goiter NEURO: No history of headaches, syncope, paralysis, seizures or tremors MOOD: Negative for depression, anxiety, or suicidal ideation. EXAM: BP 118/62 Pulse 87 Resp 20 Wt 121.6 kg (268 lb) LMP 03/20/2022 SpO2 97% BMI 47.47 kg/m PHYSICAL EXAM: General Appearance: Well appearing, alert, in no acute distress, well-hydrated, well nourished. Skin: Skin color, texture, turgor normal, no suspicious rashes or lesions. Head: Normocephalic, no masses, lesions, tenderness or abnormalities. Eyes: Anicteric sclera. Extraocular movements are intact. Neurologic: Gait normal. ASSESSMENT/PLAN: 1. Weight gain - ICD9: 783.1, ICD10: R63.5 - Get the following labs completed to further evaluate any acute causes for her symptoms.. - Encourage the patient to track food, try to increase protein and vegetables, and get some form ofexercise. - Start metformin 500 mg to help with insulin resistance. - CBC + DIFF - TSH BLD - COMP METABOLIC PANEL - METFORMIN ER 500 MG TABLET,EXTENDED RELEASE 24 HR Follow-up in 1 month or sooner as needed. Discussed treatment plan and patient voices understanding. Patient's questions answered appropriately. Medications and potential side effects were discussed and patient voices understanding. Leelee Tobar APRN.YADI This note was partially generated using [employer] voice recognition system. Note was reviewed for accuracy. There may be minor misspellings or grammar miscues with [employer] voice recognition. I spent a total of 25 minutes on the date of the service which included jupg-dt-orgs patient care, obtaining and/or reviewing separately obtained history, counseling and educating the patient/family/caregiver and ordering medications, tests, or procedures. documented in this encounterMem[facility] Evaluation + Plan note Future Scheduled Tests Laboratory* Clostridium difficile (PCR) 03/03/22 [facility] 05-23-2022 Evaluation + Plan note Future Appointments Future Scheduled Tests Laboratory* Clostridium difficile (PCR) 03/03/22 [facility] 05-06-2022 Hospital Discharge instructions Patient Education 02/14/2022 16:29:03 Pain Medicine Instructions, Ogci-ts-Tqtx Pain Medicine Instructions You may need pain medicine after an injury or illness. Two common types of pain medicine are: Opioid pain medicine. These may be called opioids. Non-opioid pain medicine. This includes NSAIDs. It is important to follow your doctor's instructions when you are taking pain medicine. Doing this can keep yourself and others safe. How can pain medicine affect me? Pain medicine may not make all of your pain go away. It should make you comfortable enough to: Move. Breathe. Do normal activities. Opioids can cause side effects, such as: Trouble pooping (constipation). Feeling sick to your stomach (nausea). Throwing up (vomiting). Feeling very sleepy. Confusion. Taking the medicine for nonmedical reasons even though taking it hurts your health and well-being (opioid use disorder). Trouble breathing (respiratory depression). Taking opioids for longer than 3 days raises your risk of these side effects. Taking opioids for a long time can affect how well you can do daily tasks. Taking them for a long time also puts you at risk for: Car crashes. Depression. Suicide. Heart attack. Taking too much of the medicine (overdose). This can lead to . What should I do to stay safe while taking pain medicine? Take your medicine as told Take pain medicine exactly as told by your doctor. Take it only when you need it. Write down the times when you take your pain medicine. Look at the times before you take your next dose. Take other omsp-zbe-pjixauu or prescription medicines only as told by your doctor. ?If your pain medicine has acetaminophen in it, do not take any other acetaminophen while you are taking this medicine. Too much can damage the liver. Get pain medicine prescriptions from only one doctor. Avoid certain activities While you are taking prescription pain medicine, and for 8 hours after your last dose: Do not drive. Do not use machinery. Do not use power tools. Do not sign legal documents. Do not drink alcohol. Do not take sleeping pills. Do not take care of children by yourself. Do not do any activities that involve climbing or being in high places. Do not go into any body of water unless there is an adult nearby who can watch you and help you if needed. This includes: ?Lakes. ?[place]. ?Oceans. ?Spas. ?Swimming pools. Keep others safe Store your medicine as told by your doctor. Keep it where children and pets cannot reach it. Do not share your pain medicine with anyone. Do not save any leftover pills. If you have leftover pills, you can: ?Bring them to a take-back program. ?Bring them to a pharmacy that has a drug disposal container. ?Throw them in the trash. Check the medicine label or package insert to see if it is safe to throw it out. If it is safe, take the medicine out of the container. Mix it with something that makes it unusable, such as pet waste. Then put the medicine in the trash. General instructions Talk with your doctor about other ways to manage your pain. If you have trouble pooping: ?Drink enough fluid to keep your pee (urine) pale yellow. ?Use a poop (stool) softener as told by your doctor. ?Eat more fruits and vegetables. Keep all follow-up visits as told by your doctor. This is important. Contact a doctor if: Your medicine is not helping with your pain. You have a rash. You feel depressed. Get help right away if: Seek medical care right away if you are taking pain medicines and you (or people close to you) notice any of the following: Trouble breathing. Breathing that is shorter than normal. Breathing that is more shallow than normal. Confusion. Sleepiness. Trouble staying awake. Feeling sick to your stomach. Throwing up. Your skin or lips turning pale or bluish in color. Tongue swelling. If you ever feel like you may hurt yourself or others, or have thoughts about taking your own life,get help right away. Go to your nearest emergency department or call: Your local emergency services (911 in the [place] A suicide crisis helpline, such as the National Suicide Prevention Lifeline at . Thisis open 24 hours a day. Summary Take your pain medicine exactly as told by your doctor. Pain medicine can help lower your pain. It may also cause side effects. Talk with your doctor about other ways to manage your pain. Follow your doctor's instructions about how to take your pain medicine and keep others safe. Ask what activities you should avoid while taking pain medicine. This information is not intended to replace advice given to you by your health care provider. Make sure you discuss any questions you have with your health care provider. Document Released: 03/16/2009 Document Revised: 09/10/2018 Document Reviewed: 05/10/2018 [employer] Patient Education 2020 [employer] 02/14/2022 16:29:01 Acute Pain, Adult Acute Pain, Adult Acute pain is a type of sudden pain that may last for just a few days or for as long as six months.It is often related to an illness, injury, or medical procedure. Acute pain may be mild, moderate, or severe. Pain can make it hard for you to do your normal, daily activities. It can cause anxiety and lead toother problems if it is left untreated. Treatment depends on the cause and severity of your pain. Acute pain usually goes away once your injury has healed or you are no longer ill. Follow these instructions at home: Medicines Take pvqq-saa-tttzilm and prescription medicines only as told by your health care provider. Take the lowest dose of medicine for the shortest amount of time needed to relieve the pain. If you are taking prescription pain medicine: ?Do not stop taking the medicine suddenly. Talk to your health care provider about how and when to discontinue prescription medicine. ?Do not take more pills than told by your health care provider even if your pain is severe. ?Do not take other inei-kgk-rzajnwi pain medicines in addition to prescription pain medicine unlesstold by your health care provider. ?Ask your health care provider if the medicine requires you to avoid driving or using heavy machinery. ?Ask your health care provider if the medicine can cause constipation. You may need to take these actions to prevent or treat constipation: ?Drink enough fluid to keep your urine pale yellow. ?Eat foods that are high in fiber, such as beans, whole grains, and fresh fruits and vegetables. ?Take zdef-bbz-pzqcgjs or prescription medicines. ?Limit foods that are high in fat and processed sugars, such as fried or sweet foods. Managing pain, stiffness, and swelling If directed, put ice on the affected area. To do this: Put ice in a plastic bag. Place a towel between your skin and the bag. Leave the ice on for 20 minutes, 2 3 times a day. If directed, apply heat to the affected area as often as told by your health care provider. Use theheat source that your health care provider recommends, such as a moist heat pack or a heating pad. Place a towel between your skin and the heat source. Leave the heat on for 20 30 minutes. Remove the heat if your skin turns bright red. This is especially important if you are unable to feel pain, heat, or cold. You may have a greater risk of getting burned. Activity Rest as told by your health care provider. Return to your normal activities as told by your health care provider. Ask your health care provider what activities are safe for you. General instructions Check your pain level as told by your health care provider. Ask your health care provider if other strategies such as distraction, relaxation, or physical therapies can help your pain. Keep all follow-up visits as told by your health care provider. This is important. Contact a health care provider if: Your pain is not controlled by medicine. Your pain does not improve or gets worse. You have side effects from pain medicines, such as vomiting or confusion. Get help right away if you: Have severe pain. Have trouble breathing. Lose consciousness. Have chest pain or pressure that lasts for more than a few minutes, or if you have other symptoms along with chest pain, including if you: ?Have pain or discomfort in one or both arms, your back, neck, jaw, or stomach. ?Have shortness of breath. ?Break out in a cold sweat. ?Feel nauseous. ?Become light-headed. These symptoms may represent a serious problem that is an emergency. Do not wait to see if the symptoms will go away. Get medical help right away. Call your local emergency services (911 in the [place] Do not drive yourself to the hospital. Summary Acute pain may be mild, moderate, or severe. It usually goes away once your injury has healed or you are no longer ill. Take zidx-oyq-xluoibf and prescription medicines only as told by your health care provider. Ask your health care provider if the medicine prescribed to you can cause constipation. Contact a health care provider if your pain is not controlled by medicine. This information is not intended to replace advice given to you by your health care provider. Make sure you discuss any questions you have with your health care provider. Document Released: 10/12/2016 Document Revised: 02/13/2020 Document Reviewed: 02/13/2020 [employer] Patient Education 2020 [employer] Follow Up Care 01/02/2022 09:42:53 With:DAY VELAZQUEZ MD, DIGITAL PRINT OPERATOR-ONC Address: [address] [place] [address] [place] [address] When:02/26/2022 14:20:00 With:BUDDY IBARRA DO Address: [address] [place] [address]- When:1-2 days Comments:Choice #1 With:SUSAN DAVIS MD Address: [address] [place] [address]- When:1-2 days Comments:Choice #2 With:JEAN PIERRE VELAZCO DO Address: [address] [place] [address]- When:1-2 days Comments:Choice #3 [facility] 05-02-2022 Evaluation + Plan noteExtracted from: Title:DIGITAL PRINT OPERATOR ONC H&P Author:ARMANDO YUNG DO Date: 02/10/22 DIGITAL PRINT OPERATOR-Onc H&P: DATE OF ADMISSION: 02/10/22 ATTENDING PHYSICIAN: Dr. Velazquez DIAGNOSIS: Rectovaginal fistula, ileostomy HISTORY OF PRESENT ILLNESS: The patient is a 26-year-old woman who was originally referred to Dr. Velazquez from Dr. Rodas's office for second opinion regarding management of a recurrent rectovaginal fistula. Patient had a vaginal delivery in April 2021 that was forceps assisted and led to 1/4 degree laceration. It was repaired immediately after her delivery. She then had a complication where the wound had . This was repaired by Dr. Ramirez on May 16, 2021. After that, she developed an infection in the wound again. She had a persistent rectovaginal fistula. Initially, with the patient was seen in the office there was no evidence of fistula. Barium enema with test was performed and negative. She was then placed on long- term antibiotics. In the interim, the patient stated that she again developed symptoms. On 08/26/2021 the patient went to the operating room with Dr. Velazquez and had examination under anesthesia, repair of fistula in perineum. She was then observed in the hospital for several days and a drain was in place. Several days after she was discharged from the hospital the repair fell apart and she had drainage into the vagina. On 08/31/2021 she returned to the operating room with Dr. Velazquez and had examination under anesthesia, exploratory laparotomy, loop ileostomy placement. She denies fevers, chills, chest pain, shortness of breath. No coughing or wheezing. No headaches or dizziness. No change in vision or hearing. No new skin rashes. No hot flashes or easy bruising. No neuropathy. No nausea or vomiting. No bloating or pain. No diarrhea or constipation. No vaginal bleeding or rectal bleeding. No hematuria or dysuria. Appetite intact. Energy level good. Performance status 0. PAST MEDICAL HISTORY: Anxiety Fecal incontinence IUD contraception Ileostomy status Rectovaginal fistula PAST SURGICAL HISTORY: Dilation and curettage-2020: 2019 Fourth degree perineal laceration for wound Dehiscence-05/16/21 4th Degree Laceration Repair Extraction of wisdom tooth examination under anesthesia, repair of fistula in perineum. 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 FAVD with 4th degree laceration. See HPI for details. 4 year history of OCP use. Menarche 11. Positive hx of abnormal pap smears-being followed by Primary OB. Denies hx of STIs. FAMILY HISTORY: Breast Cancer: Pt with 2 Paternal Aunts diagnosed with breast cancer <50 years of age. Grandmother with Hx of Colon cancer in 50s. She is from it. Paternal Aunt with Hx of Uterine cancer. Doing well. SOCIAL HISTORY: Patient denies smoking or illicit drug use. Admits to occasional alcohol use. MEDICATIONS: Medication List Active Medications Documented levonorgestrel: 52 mg, 1 EA, Intrauterine, Once, 0 Refill(s). loperamide: 2 mg, 1 cap(s), Oral, q4h, PRN: for loose stool, 0 Refill(s). Medications Inactivated in the Last 72 Hours No medications found. ALLERGIES: Morphine REVIEW OF SYSTEMS: See HPI for pertinent positives. A full review of systems was conducted and found to be otherwise negative. PHYSICAL EXAMINATION: Vital Signs: pending General Appearance: Well-appearing, resting comfortably on room air Head: Atraumatic normocephalic EENT: Moist mucous membranes Cardiopulmonary: Breathing easily on room air, no cyanosis, wheezing, accessory muscle use Abdomen: Soft and nondistended with no rebound tenderness or guarding Musculoskeletal: Moving extremities appropriately Extremities: Warm, minimal edema Neurological: Alert and oriented x3 Skin: No rashes Psychiatric: Appropriate affect LABS: Pending ASSESSMENT AND PLAN: This is a 26 year old with ileostomy presenting for exam under anesthesia, proctoscopy, ileostomy reversal with partial small bowel resection. All risks, benefits and alternatives were discussed with the patient. Risks include, but are not limited to, risk of bleeding to the point of transfusion, infection, injury to surrounding tissue, VTEs, ICU admission and . Patient aware and consented. See addendum by Dr. Velazquez for assessment and plan. Addendum by ARMANDO YUNG on February 09, 2022 18:01 EDT Date change Addendum by DAY VELAZQUEZ on February 10, 2022 17:08 EDT Temperature Oral: 36.3 DegC Apical Heart Rate: 76 bpm Respiratory Rate: 16 br/min Systolic Blood Pressure: 107 mmHg Diastolic Blood Pressure: 73 mmHg Mean Arterial Pressure: 84 mmHg WBC: 6.5 10^3/mcL (02/10/22 13:43:00) RBC: 5.01 10^6/mcL (02/10/22 13:43:00) Hgb: 13.2 G/dL (02/10/22 13:43:00) Hct: 39.5 % (02/10/22 13:43:00) MCV: 78.9 fL Low (02/10/22 13:43:00) MCH: 26.4 pg Low (02/10/22 13:43:00) MCHC: 33.5 G/dL (02/10/22 13:43:00) RDW: 16.9 % High (02/10/22 13:43:00) Platelet: 316 10^3/mcL (02/10/22 13:43:00) MPV: 6.5 fL Low (02/10/22 13:43:00) Neutrophil %: 64.8 % (02/10/22 13:43:00) Lymphocyte %: 28 % (02/10/22 13:43:00) Monocyte %: 5.6 % (02/10/22 13:43:00) Eosinophil %: 1 % (02/10/22 13:43:00) Basophil %: 0.6 % (02/10/22 13:43:00) Neutrophil, Absolute: 4.2 10^3/mcL (02/10/22 13:43:00) Lymphocyte, Absolute: 1.8 10^3/mcL (02/10/22 13:43:00) Monocyte, Absolute: 0.4 10^3/mcL (02/10/22 13:43:00) Eosinophil, Absolute: 0.1 10^3/mcL (02/10/22 13:43:00) Basophil, Absolute: 0 10^3/mcL (02/10/22 13:43:00) Urine POC: Negative (02/10/22 13:41:00) Glucose Level: 80 mg/dL (02/10/22 13:43:00) Sodium Level: 140 mEq/L (02/10/22 13:43:00) Potassium Level: 4.6 mEq/L (02/10/22 13:43:00) Chloride: 106 mEq/L (02/10/22 13:43:00) CO2: 26 mEq/L (02/10/22 13:43:00) Electrolyte Balance: 8 mEq/L (02/10/22 13:43:00) BUN: 8 mg/dL (02/10/22 13:43:00) Creatinine Lvl (s): 0.48 mg/dL Low (02/10/22 13:43:00) BUN/Creatinine Ratio: 16.7 ratio (02/10/22 13:43:00) Calcium Lvl: 9.4 mg/dL (02/10/22 13:43:00) Total Protein: 7 G/dL (02/10/22 13:43:00) Albumin Level: 3.9 G/dL (02/10/22 13:43:00) Globulin: 3.1 G/dL (02/10/22 13:43:00) A/G Ratio: 1.3 ratio (02/10/22 13:43:00) Bili Total: 1.2 mg/dL (02/10/22 13:43:00) Alk Phos: 96 U/L (02/10/22 13:43:00) AST/SGOT: 43 U/L High (02/10/22 13:43:00) ALT/SGPT: 51 U/L High (02/10/22 13:43:00) GFR Non-: >60 (02/10/22 13:43:00) GFR : >60 (02/10/22 13:43:00) ABO/Rh Interp: A POS (02/10/22 13:43:00) ABSC Interp (Gel): NEG ABSC Biorad (02/10/22 13:43:00) I personally saw and evaluated the patient on the day of surgery in the pre-operative holding area. I have reviewed the above documentation and clinical decision making and I agree. Vital signs and bloodwork were reviewed. Physical examination unchanged since the last time I saw her in the office. I asked the patient if she thought that the fistula had closed over. She states that she is not sure. She states that she still very worried because when she had the barium enema test she did feel some air get pushed into her vagina. Since then, she has not had any stool, the vagina. We did discuss that the first portion of the procedure will be a thorough examination under anesthesia with proctoscopy. If there is any concerns the fistula has not healed up, I did let her know that we will not be reversing the ileostomy. Naturally she was disappointed, but ultimately understands that what we want to avoid is reversing the ileostomy of the fistula still present because and we will be back at square 1. Options moving forward should the fistula still be present would be consultation with plastic surgery to see if some sort of flap could be rotated and versus hyperbaric oxygen therapy. The patient seemed relieved to hear that there were some other options should we not be able to proceed with the surgery as scheduled today. We reviewed the plan for the surgery, including the risks and indications for the procedure. All of her questions were answered. DAY VELAZQUEZ MD FACOG Future Appointments Appointment Date:02/26/2022 11:00:00 AM Scheduled Provider:DAY VELAZQUEZ MD Location:DIGITAL PRINT OPERATOR ONC Appointment Type:SO Post Op [facility] 12-24-2021 Hospital Discharge instructions Patient Education 10/04/2021 20:12:43 Colostomy: Caring for Your Stoma Colostomy: Caring for Your Stoma Applying an extra skin barrier, such as a wipe, helps protect the skin if stool leaks around the pouch. Wipe it in a yomba shoshone around the stoma. Then let it dry for 1 minute before putting on a new pouch. You need to take care of your stoma and the skin around it (peristomal skin). That means keeping the stoma and the skin clean. It also means protecting the skin from moisture and contact with stool. This helps prevent skin problems and odor. Check the stoma Check the stoma and the skin around it each time you change your pouch. drive in waiter/waitress front of a mirror,or use a hand mirror so that you can see all the way around the stoma. It should look shiny, moist,and dark pink or red. The skin around it should be smooth, with no red or broken spots. Clean around the stoma Clean around the stoma with warm water and a soft washcloth each time you change the pouch. Water does not harm the stoma. You can even take a bath or shower without your pouch if you choose: There are no nerves in the stoma, so there is no feeling. Be sure to clean and dry the stoma gently. You could injure the stoma without knowing it. The stoma may bleed a little when you clean it. That s because there are tiny blood vessels in the tissue. Protect the skin around the stoma For the pouch to stick well, the skin around the stoma needs to be dry and smooth. If the skin is moist or uneven, the pouch is more likely to leak. A leaky pouch will irritate the skin. It can also cause odor: To help keep the skin healthy, pat it dry after you wash it. If you like, apply an extra skin barrier, such as a wipe, before you put on a new pouch. This helpsprotect the skin if stool leaks around the pouch. Common causes of skin problems Common causes include the following: A leaking pouch can make the skin red and weepy. Use a measuring guide to check that the opening onthe pouch is the correct size. Hair under the pouch can make the skin inflamed. To avoid this, shave off any hair around the stomawith an electric razor. Always shave away from the stoma. Allergies to skin barriers can make the skin itch, burn, or sting. You may need to try a new skin barrier or change to a new kind of pouch. Yeast infections can make the skin red and itchy. Sweat under the pouch makes these infections morelikely. A pouch cover can help keep the skin dry. Call your enterostomal therapy (ET) nurse or other healthcare provider Contact your healthcare provider if you have any of the following: The skin around the stoma is red, weepy, bleeding, or broken. The skin around the stoma itches, kulkarni, stings, or has white spots. The stoma swells, changes color, or bleeds without stopping. The stoma becomes even with or sinks below the skin, or it sticks up more than normal. 8380-[address] [employer] [place] [address]. All rights reserved. This information is not intended as a substitute for professional medical care. Always follow yourhealthcare professional's instructions. Follow Up Care 10/04/2021 19:12:57 With:DAY VELAZQUEZ MD, DIGITAL PRINT OPERATOR-ONC Address: [address] [place] [address] [place] [address] [phone] When:2-4 days [facility] 11-29-2021 Hospital Discharge instructions Patient Education 09/09/2021 15:57:21 Colostomy Surgery, Adult, Care After Colostomy Surgery, Adult, Care After This sheet gives you information about how to care for yourself after your procedure. Your health care provider may also give you more specific instructions. If you have problems or questions, contact your health care provider. What can I expect after the procedure? After the procedure, it is common to have: Swelling at the opening that was created during the procedure (stoma). Slight bleeding around the stoma. Redness around the stoma. Follow these instructions at home: Activity Rest as needed while the stoma area heals. Return to your normal activities as told by your health care provider. Ask your health care provider what activities are safe for you. Avoid strenuous activity and abdominal exercises for 3 weeks or for as long as told by your health care provider. Do not lift anything that is heavier than 10 lb (4.5 kg), or the limit that you are told, until your health care provider says that it is safe. Incision care Follow instructions from your health care provider about how to take care of your incision. Make sure you: ?Wash your hands with soap and water before you change your bandage (dressing). If soap and water are not available, use hand developmental behavioral physician. ?Change your dressing as told by your health care provider. ?Leave stitches (sutures), skin glue, or adhesive strips in place. These skin closures may need to stay in place for 2 weeks or longer. If adhesive strip edges start to loosen and curl up, you may trim the loose edges. Do not remove adhesive strips completely unless your health care provider tells you to do that. Stoma care Keep the stoma area clean. Clean and dry the skin around the stoma each time you change the colostomy bag. To clean the stoma area: ?Use warm water and only use cleansers that are recommended by your health care provider. ?Rinse the stoma area with plain water. ?Dry the area well. Use stoma powder or skin barrier film on your skin only as told by your health care provider. Do not use any other powders, gels, wipes, or creams on the skin around the stoma. Check the stoma area every day for signs of infection. Check for: ?More redness, swelling, or pain. ?More fluid or blood. ?Pus or warmth. Measure the stoma opening regularly and record the size. Watch for changes. Share this information with your health care provider. Bathing Do not take baths, swim, or use a hot tub until your health care provider approves. Ask your healthcare provider if you may take showers. You may be able to shower with or without the colostomy bag in place. If you bathe with the bag on, dry the bag afterward. Avoid using harsh or oily soaps when you bathe. Colostomy bag care Follow instructions from your health care provider about how to empty or change the colostomy bag. Keep colostomy supplies with you at all times. Store all supplies in a cool, dry place. Empty the colostomy bag: ?Whenever it is one-third to one-half full. ?At bedtime. Replace the bag every 3 4 days for the first 6 weeks, then every 4 7 days. Driving Follow driving restrictions as told by your health care provider. Do not drive or use heavy machinery while taking prescription pain medicine. General instructions Follow instructions from your health care provider about eating or drinking restrictions. Take jjkm-pzq-xomwpru and prescription medicines only as told by your health care provider. Avoid wearing clothes that are tight directly over your stoma area. Do not use any products that contain nicotine or tobacco, such as cigarettes and e-cigarettes. If you need help quitting, ask your health care provider. If you are a woman, ask your health care provider about becoming and about using control. Medicines may not be absorbed normally after the procedure. Keep all follow-up visits as told by your health care provider. This is important. Contact a health care provider if you have: Trouble caring for your stoma or changing the colostomy bag. Nausea or vomiting. A fever. More redness, swelling, or pain at the site of your stoma or around your anus. More fluid or blood coming from your stoma or your anus. Warmth around your stoma area. Pus coming from your stoma. A change in the size or appearance of the stoma. Abdominal pain, bloating, pressure, or cramping. Stool more often or less often than your health care provider tells you to expect. Very little urine production. This may be a sign of dehydration. Get help right away if you have: Abdominal pain that does not go away or becomes severe. Frequent vomiting. No stool draining through the stoma. Chest pain or an irregular heartbeat. Summary Follow instructions from your health care provider about how to take care of your incision and stoma. Contact a health care provider if you have trouble caring for your stoma or changing the colostomy bag. Get help right away if you have abdominal pain that does not go away or becomes severe or if you have no stool draining through the stoma. Keep all follow-up visits as told by your health care provider. This is important. This information is not intended to replace advice given to you by your health care provider. Make sure you discuss any questions you have with your health care provider. Document Released: 02/18/2012 Document Revised: 01/25/2019 Document Reviewed: 01/25/2019 [employer] Patient Education 2020 [employer] Follow Up Care 09/08/2021 06:53:15 With:Conchita [facility] will follow you at [place] [phone] Address:Unknown When:1-2 days With:DAY VELAZQUEZ Address: [address] [place] [address] [phone] Business (1) When:1-2 days [facility] 11-28-2021 Evaluation + Plan noteExtracted from: Title:Clinical Document Author:FREIDA DERAS MD Date:09/08/21 REFERRING PHYSICIAN: Balwinder gautam Dept PRIMARY CARE PHYSICIAN: WATSON HISTORY OF PRESENT ILLNESS: Patient is a 26-year-old female who is status post rectovaginal fistula repair on August 26 2021, and status post mini laparotomy with diverting loop ileostomy placement on August 31, 2021. 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 She presents today for an ileostomy evaluation to the emergency department. Patient states that home health aides has not been able to come to her house to assess the ileostomy and help each and remove the rods for the diverting ileostomy. Diverting ileostomy rods were to be removed on Tuesday September 07, 2021. She endorses having low supplies for her diverting ileostomy. Patient denies any fever or chills. Endorses adequate output from diverting ileostomy. PAST MEDICAL HISTORY: Anxiety Fecal incontinence Rectovaginal fistula Seasonal allergy PAST SURGICAL HISTORY: _ Dilation and curettage-2020: 2019 Fourth degree perineal laceration for wound Dehiscence-05/16/21 4th Degree Laceration Repair Extraction of wisdom tooth MATERIALS ANALYST HISTORY: . FAVD with 4th degree laceration. See HPI for details. Menarche 11. Menopause age; n/a due to age. 4 year history of OCP use. No prior HRT use. Positive hx of abnormal pap smears-being followed by [facility]. Denies hx of STIs. Pap/mammo; n/a due to age. FAMILY HISTORY:_ Mother: Hypertension Father: Diabetes Grandparent: Colon cancer; Diabetes; Stroke SOCIAL HISTORY:_ Alcohol Details: Use: Current. Frequency: 1-2 times per year. Home/Environment Details: Domestic Concerns: None. Living situation: Home/Independent. Marital Status: . Nutrition/Health Details: Type of diet: Regular. Appetite Fair. Substance Abuse Details: Use: Never. Tobacco Details: Nicotine Use: Former smoker, quit more than 30 days ago, quit 5 years ago. MEDICATIONS: _ Home Medications (15) Active acetaminophen 325 mg oral capsule 650 mg = 2 cap(s), Oral, q4h Afrin 0.05% nasal Mist 2 spray(s), Intranasal, BID albuterol MDI (90 mcg/inh) CFC free inhalation aerosol 1 puff(s), PRN, Inhalation, Once cetirizine 10 mg oral tablet 10 mg = 1 tab(s), Oral, qDay ciprofloxacin 750 mg oral tablet 750 mg = 1 tab(s), Oral, q12h Colace 100 mg oral capsule 100 mg = 1 cap(s), Oral, BID Flagyl 500 mg oral tablet 500 mg = 1 tab(s), Oral, q12h fluticasone proprionate NASAL 50 mcg/ spray 1 spray(s), Nostril, each, qAM IBU 600 mg oral tablet 600 mg = 1 tab(s), Oral, q6h Lexapro 10 mg oral tablet 10 mg = 1 tab(s), Oral, qHS ondansetron 4 mg oral tablet, disintegrating 4 mg = 1 tab(s), PRN, Oral, q6h oxyCODONE 5 mg oral tablet ( IMMEDIATE release ) 5 mg = 1 tab(s), Oral, q6h Percocet 5 mg-325 mg oral tablet 1 tab(s), PRN, Oral, q6h senna 8.6 mg oral tablet 17.2 mg = 2 tab(s), Oral, qHS Vistaril 50 mg oral capsule 50 mg = 1 cap(s), PRN, Oral, QID Medication List Active Medications Prescribed acetaminophen: 650 mg, 2 cap(s), Oral, q4h, 90 cap(s), 0 Refill(s). acetaminophen-oxyCODONE: 1 tab(s), Oral, q6h, for 3 day(s), PRN: for pain, 10 tab(s), 0 Refill(s). ciprofloxacin: 750 mg, 1 tab(s), Oral, q12h, for 14 day(s), 28 tab(s), 0 Refill(s). docusate: 100 mg, 1 cap(s), Oral, BID, 60 cap(s), 0 Refill(s). escitalopram: 10 mg, 1 tab(s), Oral, qHS, 30 tab(s), 3 Refill(s). hydrOXYzine: 50 mg, 1 cap(s), Oral, QID, PRN: as needed for anxiety, 40 cap(s), 0 Refill(s). ibuprofen: 600 mg, 1 tab(s), Oral, q6h, 40 tab(s), 0 Refill(s). metroNIDAZOLE: 500 mg, 1 tab(s), Oral, q12h, for 14 day(s), 28 tab(s), 0 Refill(s). ondansetron: 4 mg, 1 tab(s), Oral, q6h, PRN: Nausea/Vomiting, 20 tab(s), 0 Refill(s). oxyCODONE: 5 mg, 1 tab(s), Oral, q6h, for 7 day(s), 28 tab(s), 0 Refill(s). senna: 17.2 mg, 2 tab(s), Oral, qHS, 20 tab(s), 0 Refill(s). Documented albuterol: 1 puff(s), Inhalation, Once, PRN: as needed for wheezing, 18 gram(s), 0 Refill(s). cetirizine: 10 mg, 1 tab(s), Oral, qDay, 30 tab(s), 0 Refill(s). fluticasone nasal: 1 spray(s), Nostril, each, qAM, 0 Refill(s). oxymetazoline nasal: 2 spray(s), Intranasal, BID, 30 mL, 0 Refill(s). Medications Inactivated in the Last 72 Hours acetaminophen-oxyCODONE: 1 tab(s), Oral, Once. Sodium Chloride 0.9% intravenous solution: 1,000 mL, IV Bolus, Once. ALLERGIES: Allergies (1) ActiveReaction morphineTachycardia REVIEW OF SYSTEMS: See HPI for pertinent positives. A full review of systems was conducted and found to otherwise be negative. PHYSICAL EXAMINATION: VITAL SIGNS:BP Vitals Signs(Last 24 hrs)__Last Charted Minimum Maximum Temp36.4(SEP 07 22:28)36.4(SEP 07 22:28)36.4(NOV 27 22:28) Resp Rate18(SEP 07:28)18(SEP 07:28)18(SEP 07:28) SBPH 141(SEP 07:)H 141(SEP 07:)H 141(SEP 07:) DBP84(SEP 07:)84(SEP 07:)84(SEP 07:) GENERAL: The patient is well appearing and in no acute distress EYES:No conjunctivitis, PERRLA ENT/NECK:Normal hearing, oral mucosa normal, normal thyroid LYMPHATIC:No cervical, supraclavicular, or axillary lymphadenopathy BREAST:Not performed CARDIAC:Regular rate and rhythm. No murmurs, rubs, or gallops PULMONARY:Clear to auscultation bilaterally. No wheezes, rales, or crackles ABDOMEN:Diverting ileostomy robson in place; Mild area of irritation and erythema around the stoma site on the skin. No overt skin breakdown. GENITOURINARY:Deferred EXTREMITIES:Warm, no cyanosis, no clubbing, no edema, MURGUIA, normal ROM PSYCHIATRIC:Normal affect. Normal Demeanor. Non-pressured speech SKIN:No rashes, warm ASSESSMENT & PLAN: Patient is a 26-year-old female who is status post rectovaginal fistula repair on August 26 2021, and status post mini laparotomy with diverting loop ileostomy placement on August 31, 2021. 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 She presents today for an ileostomy evaluation to the emergency department. 1) Diverting ileostomy evaluation - Stoma intact; robson in place. This was due for removal on 09/07 by home health aids; however they are unable to make it to patient until middle of the upcoming week. - Robson removed gently after cutting suture. - ICU nurse was present and assisted in teaching patient on placement of ostomy bag and proper placement and securing of ostomy bag. - Extra supplies were provided to the patient including skin barrier and more bags. - Patient was in no acute distress and patient was reassured. - No reason for admission due to functioning intact diverting ileostomy and teaching performed in ED by nursing. Patient is afebrile. No evidence of infectious process on skin or soft tissue. - Patient has home health for ostomy care scheduled to arrive this week and patient has an appointment with Dr. Velazquez in the office this upcoming week on Thursday. DISPO: Okay for discharge from GynOnc standpoint. Patient encouraged to come back to the ED if she has any further concerns. Addendum by FREIDA DERAS MD on September 08, 2021 5:58 EST Above DIGITAL PRINT OPERATOR Note was a late entry. Patient did page again just now from [place] ED that her ostomy bag is leaking and that she feels comfortable if she was admitted for proper teaching. However, i did explain to her that this is really unnecessary - she just needs to learn how to securely fit the ostomy bag. She stated that multiple providers in [place] attempted to secure the bag with no success. I told her she could come for evaluation to the ED. Addendum by SHIRLEY CARRION DO on September 08, 2021 9:32 EST Following her discharge fro [facility] p t went to [facility] with similar concerns and was sent back to [place] after the ostomy bag was changed. On exam no acute changes to the above documentation is noted. Ostomy is producing good output, bowel is appropriate color, seal is tight without drainage. Skin surrounding is without drainage or discoloration. Pt c/o high anxiety over the seal which she states is leaking under the ostomy, states her ostomy home care is not set up until later this coming week and is in need of better care at the present time. Has not other complaints or concerns. Feels well without NVC/F/SOB/CP. Performance status 0. Physical exam as above with Lungs CTA BL. RRR. +BS. Plan is to admit patient for ostomy bag change and routine care. Home health care should be arranged on Thursday to accommodate the needs patient expresses. If remains stable and ostomy care sufficient for patients needs will be candidate to discharge home tomorrow once the above has been concluded. Diagnosis: Ostomy care. Condition: Stable. Home medications to be continued. Regular diet as home. No IVF. Routine Nursing and vitals. No pain medications indicated at this time. No infectious process. Will obtain CBC/CMP/Mag/Phos labs. Attending Dr Nation will be notified of admission and plan. Addendum by ANGELA MACK MD on September 08, 2021 12:[address] Nation notified of patient admissio n. Consul to skin team placed to assess ostomy. Will ensure home health is in place and plan for discharge home tomorrow. Future Appointments Appointment Date:09/09/2021 09:40:00 AM Scheduled Provider:QUINTON ROCHA Location:DIGITAL PRINT OPERATOR ONC Appointment Type:SO OV Post Op Appointment Date:09/11/2021 10:20:00 AM Scheduled Provider:DAY VELAZQUEZ MD Location:DIGITAL PRINT OPERATOR ONC Appointment Type:SO OV Post Op Appointment Date:11/13/2021 11:20:00 AM Scheduled Provider:DAY VELAZQUEZ MD Location:DIGITAL PRINT OPERATOR ONC Appointment Type:SO OV Follow Up [facility] 11-28-2021 Hospital Discharge instructions Patient Education 09/08/2021 01:16:02 Ileostomy: Changing Your Pouch Ileostomy: Changing Your Pouch Stool starts to pass from the stoma soon after surgery. At first, a nurse will change your pouch. But you ll need to learn how to change it yourself before you go home. You will need to change your pouch 1 to 2 times a week. You will empty it more often. To change your pouch, follow the steps below. Start by gathering what you ll need: Plastic bags Clean towel Toilet paper Extra skin protection, if desired Soft washcloth New pouch Step 1. Remove the used pouch If you use a drainable pouch, empty it first. Open the Velcro closures or remove the clamp and set it aside. Sit on or next to the toilet. Start at the upper edge of the skin barrier. Carefully push the skin away from the barrier with 1 hand. Slowly peel back the skin barrier with the other hand. Peel all the way around the skin barrier until the pouch comes off. Seal the pouch in a plastic bag. Then put it in a second plastic bag. Throw it away in a trash bin. Step 2. Clean around the stoma Wipe any stool off the skin around the stoma with toilet paper. Clean the skin with warm water and a soft washcloth. Wash right up to the edge of the stoma. Pat the skin dry with a clean towel. Put on extra skin protection, such as moisture barrier paste, cream, or powder if desired. Step 3. Put on the new pouch If you don t use a pouch with a precut skin barrier, size and cut the opening. Slowly peel the backing off the barrier and carefully place it over the stoma. If you use a 2-piece pouch, snap the pouch onto the barrier. Start at the bottom and work your fingers around the flange. Press the barrier against the skin with your fingertips. Lay the palm of your hand over the barrierand hold it in place for 45 seconds. This molds the barrier to your skin. Secure the Velcro closures shut or clamp the tail of the pouch. Call your wound, ostomy, and continence nurse (WOCN) Call your WOCN if: The skin around the stoma is red, weepy, bleeding, or broken. The skin around the stoma itches, kulkarni, stings, or has white spots. The stoma swells, changes color, or bleeds without stopping. The stoma becomes even with or sinks below the skin, or it sticks up more than normal. [id number] [employer] [place] [address]. All rights reserved. This information is not intended as a substitute for professional medical care. Always follow yourhealthcare professional's instructions. 09/08/2021 01:16:00 Ileostomy: Caring For Your Stoma Ileostomy: Caring for Your Stoma Applying an extra skin barrier, such as a wipe, helps protect the skin if stool and digestive juices leak around the pouch. Wipe it in a yomba shoshone around the stoma. Then let it dry for 1 minute before putting on a new pouch. You need to take care of your stoma and the skin around it (peristomal skin). That means keeping the stoma and the skin clean. It also means protecting the skin from moisture and contact with stool. This helps prevent skin problems and odor. Check the stoma Check your stoma and the skin around it each time you change your pouch. drive in waiter/waitress front of a mirror, or use a hand mirror so that you can see all the way around the stoma. It should look shiny, moist, and dark pink or red. The skin around it should be smooth, with no red or broken spots. Clean around the stoma Clean around the stoma with warm water and a soft washcloth each time you change the pouch. Water does not harm the stoma: There are no nerves in the stoma, so there is no feeling. Be sure to clean and dry the stoma gently. You could injure the stoma without knowing it. The stoma may bleed a little when you clean it. That s because there are tiny blood vessels in the tissue. Protect the skin around the stoma For the pouch to stick well, the skin around the stoma needs to be dry and smooth. If the skin is moist or uneven, the pouch is more likely to leak. A leaky pouch will irritate the skin. That s because digestive juices break down skin just as they break down food. A leaky pouch can also cause odor: To help keep the skin healthy, pat it dry after you wash it. If you like, apply an extra skin barrier, such as a wipe, before you put on a new pouch. This helpsprotect the skin if stool and digestive juices leak around the pouch. Common causes of skin problems These include the following: A leaking pouch can make the skin red and weepy. Use a measuring guide to check that the opening onthe pouch is the correct size. Hair under the pouch can make the skin inflamed. To avoid this, shave off any hair around the stomawith an electric razor. Always shave away from the stoma. Allergies to skin barriers can make the skin itch, burn, or sting. You may need to try a new skin barrier or change to a new kind of pouch. Yeast infections can make the skin red and itchy. Sweat under the pouch makes these infections morelikely. A pouch cover can help keep the skin dry. Call your enterostomal therapy (ET) nurse or other healthcare provider Contact your healthcare provider if: The skin around the stoma is red, weepy, bleeding, or broken. The skin around the stoma itches, kulkarni, stings, or has white spots. The stoma swells, changes color, or bleeds without stopping. The stoma becomes even with or sinks below the skin, or it sticks up more than normal. [id number] [employer]. [address] [place] [address], [place] [address]. All rights reserved. This information is not intended as a substitute for professional medical care. Always follow yourhealthcare professional's instructions. Follow Up Care 09/07/2021 22:04:03 With:DAY VELAZQUEZ MD, DIGITAL PRINT OPERATOR-ONC Address: [phone] When:2-4 days [facility] 11-23-2021 Hospital Discharge instructions Patient Education 09/03/2021 14:19:00 Ileostomy Ileostomy Ileostomy is a procedure to permanently or temporarily redirect part of the small intestine (ileum)to an external opening (stoma) in the abdomen. This means that waste is passed through the stoma and into an external bag (ostomy pouch), instead of passing through the rest of the intestines and therectum (bowel). You may need this procedure if your bowel is diseased or has been partially removed. Tell a health care provider about: Any allergies you have. All medicines you are taking, including vitamins, herbs, eye drops, creams, and jxik-dmt-yuxqjcj medicines. Any problems you or family members have had with anesthetic medicines. Any blood disorders you have. Any surgeries you have had. Any medical conditions you have or have had. Whether you are or may be . What are the risks? Generally, this is a safe procedure. However, problems may occur, including: Infection. Bleeding. Allergic reactions to medicines. Damage to other structures or organs. Skin irritation around the stoma. Narrowing or collapsing of the stoma. Blockage of the intestine (ileus). Tissue bulging through a weak spot in the abdomen muscles (hernia). Part of the small intestine coming out through the stoma (prolapse). Difficulty absorbing nutrients from foods. Dehydration. What happens before the procedure? Exams and tests You will have a physical exam, which may include a rectal exam. You may have tests, such as: ?Blood tests. ?Stool tests. ?X-rays. ?Colonoscopy. Medicines Ask your health care provider about: Changing or stopping your regular medicines. This is especially important if you are taking diabetes medicines or blood thinners. Taking medicines such as aspirin and ibuprofen. These medicines can thin your blood. Do not take these medicines unless your health care provider tells you to take them. Taking cnkt-zrs-ucdqwkp medicines, vitamins, herbs, and supplements. Eating and drinking Follow instructions from your health care provider about eating and drinking, which may include: 8 hours before the procedure stop eating heavy meals or foods, such as meat, fried foods, or fatty foods. 6 hours before the procedure stop eating light meals or foods, such as toast or cereal. 6 hours before the procedure stop drinking milk or drinks that contain milk. 2 hours before the procedure stop drinking clear liquids. Staying hydrated Follow instructions from your health care provider about hydration, which may include: Up to 2 hours before the procedure you may continue to drink clear liquids, such as water, clear fruit juice, black coffee, and plain tea. General instructions A jostin will be put on your abdomen where the stoma will be placed to ensure that it is in a good location for care. Ask your health care provider what steps will be taken to help prevent infection. These may include: ?Removing hair at the surgery site. ?Washing skin with a germ-killing soap. ?Taking antibiotic medicine. Do not use any products that contain nicotine or tobacco for at least 4 6 weeks before the procedure. These products include cigarettes, e-cigarettes, and chewing tobacco. If you need help quitting, ask your health care provider. What happens during the procedure? An IV will be inserted into one of your veins. You may be given a medicine to help you relax (sedative). You will be given a medicine to make you fall asleep (general anesthetic). An incision will be made in your abdomen. Your ileum will be cut so that it is divided in two. The end of the ileum will be attached to your abdomen with stitches (sutures) to make the stoma. An ostomy pouch will be attached to your stoma. Your incision will be covered with a bandage (dressing). The procedure may vary among health care providers and hospitals. What happens after the procedure? You may continue to receive fluids and medicines through an IV. You will have some pain. Medicines will be available to help you. Your blood pressure, heart rate, breathing rate, and blood oxygen level will be monitored until youleave the hospital. You may not be able to drink fluids or eat solid food for at least 24 hours after your procedure. You may be given ice chips to suck on until you are able to drink fluids. You may have fluid draining from your stoma and your rectum. You will be taught how to care for your stoma and ostomy pouch. Your stoma may be dark-colored, swollen, and bruised. You may have to wear compression stockings. These stockings help to prevent blood clots and reduce swelling in your legs. Summary Ileostomy is a procedure to permanently or temporarily redirect part of the small intestine (ileum)to an external opening (stoma) in the abdomen. This means that waste is passed through the stoma and into an external bag (ostomy pouch). Before the procedure, you will have a jostin put on your abdomen where the stoma will be placed to ensure that it is in a good location for care. Before the procedure, follow instructions from your health care provider about medicines and about eating and drinking. Once the stoma has been created, an ostomy pouch will be attached to your stoma. You will be taught how to care for your stoma and ostomy pouch. This information is not intended to replace advice given to you by your health care provider. Make sure you discuss any questions you have with your health care provider. Document Released: 09/08/2016 Document Revised: 06/06/2019 Document Reviewed: 06/06/2019 [employer] Patient Education 2020 [employer]. Follow Up Care 08/29/2021 21:45:18 With:[facility] will provide home health care services for Nursing care-Ostomy care. please call [phone] if you have questions. Address:Unknown When:1-2 days With:DAY VELAZQUEZ MD, DIGITAL PRINT OPERATOR-ONC Address: [address] [place] [address] [place] [address] [phone] When:09/11/2021 10:20:00 [facility] 11-19-2021 Evaluation + Plan noteExtracted from: Title:GynONC H&P Author:ANN-MARIE ESTRADA MD Date: Date of Admission: Attending Physician: Dr. Day Velazquez Chief Complaint rectal and vaginal pain post op History of Present Illness: 26 Years old woman who presents as a direct admit for rectal-vaginal pain. Patient undergone a repair of a rectovaginal fistrula on 08/26/2021 from a previous 4th degree laceration after giving . Patient had no complications during that hospital stay, was transitioned to PO pain medications and antibiotics then discharged home after 3 days. Patient paged retail seasonal specialist resident arturo endorsing worsening rectal and vaginal pain. Was instructed to take her oxycodone as well as ibuprofen. However patient then called back the retail seasonal specialist resident and stated she's had worsening stool coming from her vagina this evening. That it wasn't like that before. She also stated that while she was in the hospital, she had felt a 'pop' however did not tell anyone because she didn't know she needed to. She denies lifting anything heavy since being home, denies intercourse. The patient denies fever, chills, chest pain, shortness of breath. No coughing or wheezing. No headaches or dizziness. No change in vision or hearing. No skin new skin rashes. No hot flashes. No easy bruising. Denies nausea/vomiting. No diarrhea or constipation. No rectal bleeding. No hematuria or dysuria. Appetite is intact. Energy level is good. Past Medical History: denies Past Surgical History: Dilation and curettage-2020: 2020 Fourth degree perineal laceration for wound Dehiscence-05/16/21 4th Degree Laceration Repair Extraction of wisdom tooth Repair of rectovaginal fistrula on 08/26/2021 [employer] Agent [employer] Service History: . FAVD with 4th degree laceration. See HPI for details. Menarche 11. Menopause age; n/a due to age. 4 year history of OCP use. No prior HRT use. Positive hx of abnormal pap smears-being followed by Primary Ob. Denies hx of STIs. Pap/mammo; n/a due to age. Family History: 2 paternal aunts with breast cancer <50 years of age Grandmother with colon cancer, diagnosed in her 50s, as a result Paternal aunt with uterine cancer, doing well Patient denies family history of ovarian cancer, pancreatic cancer, prostate cancer. Social History: Alcohol Details: Use: Current. Frequency: 1-2 times per year. Home/Environment Details: Domestic Concerns: None. Living situation: Home/Independent. Marital Status: . Nutrition/Health Details: Type of diet: Regular. Appetite Fair. Substance Abuse Details: Use: Never. Tobacco Details: Nicotine Use: Former smoker, quit more than 30 days ago, quit 5 years ago. Medications acetaminophen: 650 mg = 2 cap(s), Oral, q4h albuterol: 1 puff(s), Inhalation, Once, PRN (as needed for wheezing) cetirizine: 10 mg = 1 tab(s), Oral, qDay ciprofloxacin: 750 mg = 1 tab(s), Oral, q12h docusate: 100 mg = 1 cap(s), Oral, BID fluticasone nasal: 1 spray(s), Nostril, each, qAM hydrOXYzine: 50 mg = 1 cap(s), Oral, QID, PRN (as needed for anxiety) ibuprofen: 600 mg = 1 tab(s), Oral, q6h metroNIDAZOLE: 500 mg = 1 tab(s), Oral, q12h oxyCODONE: 5 mg = 1 tab(s), Oral, q6h oxymetazoline nasal: 2 spray(s), Intranasal, BID senna: 17.2 mg = 2 tab(s), Oral, qHS Allergies: Allergies (1) ActiveReaction morphineTachycardia Review of Systems: See HPI for pertinent positives. A full review of systems was conducted and found to be otherwise negative. Physical Examination: --- per documentation Vitals Signs(Last 24 hrs)_Last Charted Minimum Maximum Temp36.3(AUG 29:35)36.3(AUG 29 21:35)36.3(AUG 29 21:35) Resp Rate20(AUG 29 21:35)20(AUG 29 21:35)20(AUG 29 21:35) UXS274(AUG 29 21:35)128(AUG 29 21:35)128(AUG 29 21:35) DBP77(AUG 29:35)77(AUG 29 21:35)77(AUG 29 21:35) General: Upset, tearful, crying HEENT: No conjunctival cystitis. Normal hearing. Normal mucosa. Lymphatic: No cervical, supraclavicular, or axillary lymphadenopathy. Breasts: Deferred. Cardiac: Regular rate and rhythm. Respiratory: Airways clear. Abdomen: Soft, non-tender, nondistended, no masses, no hernias, normal bowel sounds. Genitourinary: Normal external genitalia. Vulva and vagina without lesions. Rectal vaginal Jesse drain appeared in place. Patient extremely uncomfortable with gentle retraction of labia and gluteal folds, and refused further examination. Extremities: Warm. No cyanosis, clubbing, or edema. Musculoskeletal: Normal range of motion. Psychiatric: Normal affect and demeanor. Labs: No qualifying data available Assessment and Plan: 26-year-old postop day 3 from rectovaginal fistula repair. Recto-Vaginal fistula -Patient having increased vaginal and rectal pain since earlier today, and also endorsing leaking of stool from her vagina -Genital exam was not satisfactory as patient did not tolerate any further examination past gentle labial retraction -Dilaudid CERAMIC ENGINEER for pain, as well as ibuprofen and tylenol - start on IV cirpofloxacin and flagyl - Clear liquid diet - reexamine in the morning once pain is more tolerable - imodium for stool bulking Anxiety - continue vistaril PRN Code: full IVF: NS 100 UOP: fowler catheter to be placed Abx: ciprofloxacin, flagyl Diet: CLD PPx: SCDs, Hep TID, protonix Dispo: post op pain management, IV abx, reexamine in the AM if patient has better pain control Patient was discussed with senior resident and attending. Any changes will be addended to this note. This document was transcribed using a voice recognition software and may contain typographical errors. Addendum by ANGELA MACK MD on August 30, 2021 2:48 EST Patient seen and evaluated with Dr. Ashley ramesh. Agree with above. Patient is a 26-year-old woman POD#3 s/p rectovaginal fistula repair readmitted for pain and vaginal discharge. Difficult to fully evaluate patient due to discomfort at time of exam, however obvious stool coming from vagina. Plan for inpatient management with IV antibiotics with Cipro and Flagyl. Dilaudid CERAMIC ENGINEER, tylenol and ibuprofen for pain control at this time. Dr. Velazquez aware of patient admission and will discuss further plan in the morning. Addendum by LANDY HOROWITZ DO on August 30, 2021 6:08 EST Patient seen and examined this AM. Pain well-controlled on CERAMIC ENGINEER pump. Patient concerned that green mercado came out of her vagina this AM. Addendum by DAY VELAZQUEZ on August 30, 2021 9:37 EST I personally saw and evaluated the patie nt on August 30, 2021. I have reviewed the above documentation and clinical decision making and I agree. Long discussion had today with the patient at the bedside. We discussed her symptoms in great detail. At this point, she has failed to repairs of her fistula. I am recommending an ostomy. Potential ileostomy versus colostomy. We will add her onto the schedule tomorrow. Consult wound care nursing team to jositn her abdomen. DAY VELAZQUEZ MD, FACOG Future Appointments Appointment Date:09/11/2021 10:20:00 AM Scheduled Provider:DAY VELAZQUEZ MD Location:[facility] Appointment Type:SO OV Post Op Appointment Date:11/13/2021 11:20:00 AM Scheduled Provider:DAY VELAZQUEZ MD Location:[facility] Appointment Type:SO OV Follow Up [facility] 11-17-2021 Hospital Discharge instructions Patient Education 08/28/2021 15:59:50 8- Post Op DIGITAL PRINT OPERATOR Surgery (09/2020)(CUSTOM) What to Do After Your Gynecology or Gynecology Oncology Surgery This sheet will give you general information on what to do when you are home after surgery. However, you should always follow any specific instructions given to you by your surgeon. Pain Medication Please follow the directions on the label of your medication and use your discharge medication listprovided by the hospital. Do not take this medication on an empty stomach. This may cause a stomachache. Use a stool softener or gentle laxative (milk of magnesia) if needed. Constipation is not uncommon while taking oral pain medication. Use less of any narcotic pain medication as soon as your pain allows. You may take bqfk-hba-qfestqglfoy medication if you no longer need your prescribed pain medication. Qhbo-dph-ycqzegl pain medications are Tylenol (acetaminophen) or Advil (ibuprofen). Do not take Tylenol if you are still taking Seneca or Percocet. They are the same type of medication. Too much acetaminophen can hurt your liver. Activity It is OK to use the stairs, but try to avoid them or take less trips right after surgery. After surgery, you may feel tired. Rest is important for healing. Slowly increase your activity level by walking and doing normal activities as you feel comfortable. Follow surgeon instructions on driving. You may not be able to drive for one to six weeks dependingon what surgery and incisions you have. Do not drive while taking narcotic pain medication. They should be out of your system for 24 hours. Diet Eating smaller meals instead of three large meals is good. This may help with your appetite and nutrition. Good nutrition will help you heal. Follow diet instructions that you were taught after surgery. Infection Prevention Washing your hands is one of the best ways to prevent infection. Always wash your hands before and after touching your incision or dressing. Hands carry germs that can cause infections. Try not to touch your incision. Keep the Incision Clean Wear clean, loose-fitting clothes to prevent clothes from rubbing on the incision. Put clean sheets on your bed when you get home. Do not let other people or animals touch the incision. Showering You may start to shower 24 hours after your surgery. Use a clean washcloth and towel on your incision before you use it on any other area of your body. Adjust the shower spray to gentle and use warm water. Gently wash over your incision using antibacterial soap and water and pat it dry. Do not rub the incision. Do not soak or submerge in the bathtub or hot tub until your surgeon says it is OK. Wound Care When you go home, you may leave your incision(s) open to the air. Your incision(s) may be closed with sutures or kaden. If incision is closed with sutures under the skin, you do not need to have these removed as they will dissolve on their own. If incision is closed with kaden, the kaden will need to be removed. If your incision is horizontal (sideways), they need to be removed within three to seven days. If your incision is vertical (up and down), they need to be removed within 10 14 days. If you have thin white tape strips (Steri-Strips) over your incision, keep them dry. Do not remove them unless they begin curling up at the sides and are almost falling off or have been in place for seven days. If your incision begins coming apart, has drainage (thick, foul smelling, white, yellow, green, pink or red) with redness around the incision and feels warm to touch, call your surgeon. You may have an infection. Vaginal Care You may have drainage after surgery. Normal colors are watery, brown-black discharge. Vaginal spotting and bleeding are normal. However, if you are soaking two pads in one hour, that isnot normal. Call your surgeon. No tampons or douching. NO SEXUAL INTERCOURSE FOR 6 WEEKS. Call Your Doctor If: Your pain is not controlled by pain medication. You have a fever of 100.4 degrees or higher. You have a lot of bleeding from the incision or a lot of vaginal bleeding (more than two pads per hour). You have bad stomach pain or you start throwing up. If you are unable to reach your doctor, go to the hospital. Follow Up If a follow-up appointment has not been made, please call your surgeon s office within a day. Let the office know if you have kaden and they will schedule them to be removed. Contact your surgeon for any specific problems or questions that you may have. Follow Up Care 08/22/2021 16:00:59 With:DAY VELAZQUEZ MD, DIGITAL PRINT OPERATOR-ONC, DIGITAL PRINT OPERATOR-ONC Address: [phone] When:09/03/2021 13:20:00 Comments:Appointment with Dr. Velazquez's nurse practitioner [place] for suture and drain removal With:DAY VELAZQUEZ MD, DIGITAL PRINT OPERATOR-ONC Address: [address] [place] [address] [place] [address] When:09/11/2021 10:20:00 [facility] 08-29-2021 Hospital Discharge instructions* Instructions* Michelle Stallings MD - 06/09/2021 Thank you for coming to the Emergency Department and for allowing us to participate in your care today. Per conversation, we did not find a reason for your pain today, it does not appear that you have an abscess or intra-abdominal infection that would cause your pain. Your white count was also normal which makes us think if you do have endometritis is not a severe, however we recommend you continue taking antibiotics that your doctor gave and follow-up with them next week. 1) Please follow-up with your primary care doctor in the next 1-2 days. Please call tomorrow for anappointment. If you cannot follow-up with your primary care doctor please return to the ED for any urgent issues. 2) You can see a copy of the tests performed today on [email or web address]. Please bring the results with you if they request and review them with your primary care doctor. 3) If you have any worsening of symptoms or any other concerns please return to the ED immediately,including if you develop worsening pain, intractable fevers (temperature above 100.4F), inability to tolerate food or liquids, or any other symptoms that are of concern to you. 4) Please continue taking your home medications as directed. If any new medications have been prescribed to you today, please fill at pharmacy and follow direction on bottle until treatment is complete or your PCP recommends you to do so. I hope you feel better soon. Be well. * Attachments The following attachments cannot be sent through Care Everywhere. * Round Ligament Pain (Chilean) documented in this encounterSUMMA Work Phone: 1(702) 125-970608-06-2021 History of Present illness Narrative* Helene Schwartz RN - 05/17/2021 12:30 PM EDT Confirmed with That oxycodone script was sent directly to [facility] pharmacy in [place]. * Helene Schwartz RN - 05/17/2021 12:09 PM EDT Discharge instructions given to patient with good understanding. * Danii Thomason DO - 05/17/2021 5:48 AM EDT Images from the original note were not included. Gynecologic Oncology Progress Note Date: 05/17/2021 Time: 5:48 AM Leelee Zamora 26 y.o. female . POD#1 s/p Rectovaginal Fistula Repair, Perineorraphy Patient seen and examined. Overnight pain controlled. Tolerated clear liquid diet. Currently receiving IV antibotics. Passing flatus has not yet had a bm. Minimal vaginal spotting, Voiding without difficulty and ambulating without assistance. Denies any fever chills, chest pain, sob, n/v. Vitals: Vitals: 05/16/21 1757 05/16/21 2143 05/17/21 0005 05/17/21 0117 BP: 137/82 126/66 126/66 127/66 Pulse: 79 78 78 72 Resp: 16 17 17 Temp: 98.5 F (36.9 C) 98.2 F (36.8 C) 97.2 F (36.2 C) TempSrc: Temporal Temporal Temporal SpO2: 97% 98% 100% Weight: Height: Intake/Output: I/O last 3 completed shifts: In: 1000 [I.V.:1000] Out: 1250 [Urine:1250] I/O this shift: In: 240 [P.O.:240] Out: 850 [Urine:850] Physical Exam: General: NAD, alert and cooperative HEENT: normocephalic, atraumatic, EOMI, MMM Resp: CTABL, no WRR Card: RRR, no murmur Abd: soft, NT/ND, no rebound, no guarding. Present BS Incisions: C//I no signs of breakdown of incision, mild amount of swelling noted Ext: no LE edema, no calf tenderness or swelling Medications: Current Facility-Administered Medications Medication Dose Route Frequency Provider Last Rate Last Admin lactated ringers infusion Intravenous Continuous Jason Ann MD 50 mL/hr at 05/16/21 0741 New Bag at 05/16/21 0741 sodium chloride flush 0.9 % injection 5-40 mL 5-40 mL Intravenous 2 times per day Danii Thomason,DO sodium chloride flush 0.9 % injection 5-40 mL 5-40 mL Intravenous PRN Danii Thomason, DO 0.9 % sodium chloride infusion 25 mL Intravenous PRN Danii Thomason, DO acetaminophen (TYLENOL) tablet 650 mg 650 mg Oral Q6H Danii Thomason, DO 650 mg at 05/17/21 0519 ondansetron (ZOFRAN-ODT) disintegrating tablet 4 mg 4 mg Oral Q8H PRN Danii Thomason, DO Or ondansetron (ZOFRAN) injection 4 mg 4 mg Intravenous Q6H PRN Danii Thomason, DO oxyCODONE (ROXICODONE) immediate release tablet 5 mg 5 mg Oral Q4H PRN Danii Thomason, DO 5 mg at05/16/21 1656 Or oxyCODONE (ROXICODONE) immediate release tablet 10 mg 10 mg Oral Q4H PRN Danii Thomason, DO 10 mgat 05/17/21 0519 docusate sodium (COLACE) capsule 100 mg 100 mg Oral BID Danii Katelin, DO 100 mg at 05/16/212037 polyethylene glycol (GLYCOLAX) packet 17 g 17 g Oral Daily Danii Katelin, DO 17 g at 05/16/21 1227 ibuprofen (ADVIL;MOTRIN) tablet 600 mg 600 mg Oral Q6H PRN Danii Thomason, DO 600 mg at 05/16/21 2358 lansinoh lanolin ointment Topical PRN Danii Thomason, DO phenol 1.4 % mouth spray 1 spray 1 spray Mouth/Throat Q2H PRN Danii Thomason, DO Diagnostics: No results found. Labs: Admission on 05/16/2021 Component Date Value Ref Range Status POC Glucose 05/16/2021 100 70 - 100 mg/dL Final Comment: Test performed by glucose meter. Results may be 10%-15% lower than serum/plasma values. (CLIA ID [id number]) Assessment/Plan: Leelee Zamora 26 y.o. female POD#1 s/p Rectovaginal Fistula Repair, perineorraphy 1. Post-operative care - Doing well, vitals stable - voiding independently - Encourage ambulation and use of incentive spirometer - Pain controlled: yes - DVT Proph: SCDs while in bed , ambulation - Abx: [id number] hrs - Diet: clear liquid will discuss advancing with Dr. Ramirez this am - Bowel regimen ordered: Colace BID, Miralax daily, pt requesting adding milk of mag - IVF: hep lock - Incision intact mild amount of swelling noted with no noted breakdown Will discuss plan with Dr. Ramirez. Active Problems: Rectovaginal fistula Episiotomy dehiscence Resolved Problems: * No resolved hospital problems. * Danii Thomason DO 05/17/2021, 5:48 AM Associated attestation - Yemi Ramirez MD - 05/17/2021 9:04 AM EDT Patient rounded, discussed with residents. She is doing well. Passing flatus. Recommend she stay onclear liquids for the next several days. Also to use MiraLAX and Colace for stool softening. Discussed that try to keep the area as clean and dry would be great, I will see her back in 2 weeks time. * Danii Thomason DO - 05/16/2021 3:37 PM EDT Assistant Professor Of Psychology Onc PM Rounding Note Pt resting in the bed breast feeding prior to arrival. Pain is controlled, voiding without difficulty. Tolerating Clear liquid diet. Reports minimal vaginal spotting. Vitals: 05/16/21 1209 BP: (!) 152/96 Pulse: 66 Resp: 16 Temp: 97.7 F (36.5 C) SpO2: 100% General - alert and oriented, sitting up in bed comfortably Heart - regular rate and rhythm, no murmurs/gallops/rubs Lungs - clear to auscultation bilaterally, no wheezes/rhonchi/rales Abdomen - soft, nondistended, nontender, no rebound/guarding, active bowel sounds Incision - perineal incision intact no active bleeding noted Extremities - no edema, SCDs in place A/P: Continue routine postoperative care. Continue IV abx for 24 hrs.CLD overnight . Stool softeners ordered for bowel regimen, ice pack to vagina, pericare * Hamida Mercer RN - 05/16/2021 11:40 AM EDT Pt's at bedside. * Danii Thomason DO - 05/16/2021 7:01 AM EDT Spoke with the RN in regards to policy allowing for infant to stay with mother Post procedure. Do feel that is indicated for to be allowed to stay with mother following the procedure as long as the Significant other (Azar) is still present with her during her hospital stay as the mother is exclusively breast feeding and recently delivered on 05/05. Reviewed policy with mother and who agrees and written form signed following review of policy which was placed in their chart. They are aware that the hospital staff will not be responsible for the infant during her hospital stay unless emergency reasons. Discussed with Dr. Ramirez who agrees with plan. documented in this [facility] Work Phone: 1(460) 869-156108-06-2021 NoteGyn/ONC Discharge Summary Patient Name: Leelee Zamora Patient : 1995 Primary Care Physician: No primary care provider on file. Admit Date: 05/16/2021 Attending Provider: Yemi Ramirez MD Principal Diagnosis: Rectovaginal fistula Other Diagnosis: Rectovaginal fistula [N82.3] Patient Active Problem List Diagnosis ? Rectovaginal fistula ? Episiotomy dehiscence Surgical Operations & Procedures: Repair of rectovaginal fistula, perineorrhaphy Consultations: None Pertinent Findings & Procedures: Leelee Zamora is a 26 y.o. female with on 05/05 complicated by 4th degree laceration. Breakdown of the episiotomy was repaired on 05/16 and she was admitted for postoperative pain control and IV antibiotics for 24 hours. Hospital course normal, discharged home 05/17/21. Follow up in within 2 weeks. Discharge instructions reviewed and questions answered. Course of patient: normal Discharge to: Home Wound Care: keep wound clean and dry, Ice pack to perineum Recommendations on Discharge: Medications: Leelee Zamora Home Medication Instructions TRACEY:[id number] Printed on:05/17/21 0828 Medication Information docusate sodium (COLACE, DULCOLAX) 100 MG CAPS Take 100 mg by mouth 2 times daily ibuprofen (ADVIL;MOTRIN) 600 MG tablet Take 1 tablet by mouth every 6 hours as needed for Pain oxyCODONE (ROXICODONE) 5 MG immediate release tablet Take 1 tablet by mouth every 4 hours as needed for Pain for up to 7 days. polyethylene glycol (GLYCOLAX) 17 g packet Take 17 g by mouth daily Activity: activity as tolerated and no sex or anything inside the vagina until cleared by your physician Diet: clear liquid diet until cleared by your physician Follow up: within [address] Ramirez Condition on discharge: good and stable Discharge Date: 05/17/21 Comments: Home care, Follow-up care, restrictions reviewed. Danii ThomasonDO 05/17/2021, 8:28 [facility]08-06-2021 Hospital course Narrative* Danii Thomason - 05/17/2021 8:26 AM EDT Images from the original note were not included. Assistant Professor Of Psychology/ONC Discharge Summary Patient Name: Leelee Zamora Patient : 1995 Primary Care Physician: No primary care provider on file. Admit Date: 05/16/2021 Attending Provider: Yemi Ramirez MD Principal Diagnosis: Rectovaginal fistula Other Diagnosis: Rectovaginal fistula [N82.3] Patient Active Problem List Diagnosis Rectovaginal fistula Episiotomy dehiscence Surgical Operations & Procedures: Repair of rectovaginal fistula, perineorrhaphy Consultations: None Pertinent Findings & Procedures: Leelee Zamora is a 26 y.o. female with on 05/05 complicated by 4th degree laceration. Breakdown of the episiotomy was repaired on 05/16 and she was admitted for postoperative pain control and IVantibiotics for 24 hours. Hospital course normal, discharged home 05/17/21. Follow up in within 2 weeks. Discharge instructions reviewed and questions answered. Course of patient: normal Discharge to: Home Wound Care: keep wound clean and dry, Ice pack to perineum Recommendations on Discharge: Medications: Leelee Zamora Home Medication Instructions TRACEY:[id number] Printed on:05/17/21 0828 Medication Information docusate sodium (COLACE, DULCOLAX) 100 MG CAPS Take 100 mg by mouth 2 times daily ibuprofen (ADVIL;MOTRIN) 600 MG tablet Take 1 tablet by mouth every 6 hours as needed for Pain oxyCODONE (ROXICODONE) 5 MG immediate release tablet Take 1 tablet by mouth every 4 hours as needed for Pain for up to 7 days. polyethylene glycol (GLYCOLAX) 17 g packet Take 17 g by mouth daily Activity: activity as tolerated and no sex or anything inside the vagina until cleared by your physician Diet: clear liquid diet until cleared by your physician Follow up: within [address] Ramirez Condition on discharge: good and stable Discharge Date: 05/17/21 Comments: Home care, Follow-up care, restrictions reviewed. Daniikira Thomason, 05/17/2021, 8:28 AM documented in this [facility] Work Phone: 1(380) 144-192507-21-2021 History of Present illness Narrative* 27-year-old had a vaginal delivery of 8 pound 9 ounce infant girl 1 year ago May 05. Her labor lasted more than 24 hours she ended up with forcep assisted the vaginal delivery and 1/4 degree laceration. She lost a lot of blood 3 days later her laceration repair failed she saw Dr. Yemi Baez in [place] and had a revision 7 days after delivery. Unfortunately she has continued to have stoolin the vagina ended up with an abscess and C. difficile. * She later had a second revision with Dr. Velazquez at [place] which also failed per the patient and shehad a ileostomy done in order to give her a break. She had that for about 6 months and was reversedMay 2 after methylene dye test was negative. However she still feels symptoms of discharge and stool through the vagina and gas. 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 [id number] Work Phone: 1(286) 798-191903-20-2021 History of Present illness Narrative* Fitz Delaney (Rt), [facility] - 12/29/2020 9:30 AM EDT Radiology Service Progress Note PATIENT NAME: Leelee Zamora DATE OF SERVICE: December 29, 2020 TIME: 9:31 AM PATIENT IDENTITY VERIFICATION COMPLETED USING TWO (2) IDENTIFIERS: Name and Date of confirmedby patient verbally. FALL SCREENING: Has the patient had 2 falls in the last year or 1 fall with injury or currently using an Ambulatory Assistive Device (Walker, Cane, Wheelchair, Crutches, etc.)? No PATIENT GENDER DATA: Female. status: : Yes. Internal Quality Check OK. status: NO. PATIENT RELEVANT IMPLANT DATA REVIEWED: Not Applicable RADIOLOGY DEPARTMENT: General X-ray: Exam(s) Completed: Upper Extremity X- Ray(s): Elbow, right : PERIPHERAL IV DATA: Not applicable SIGNED BY: RT Kt December 29, 2020 9:31 AM documented [facility] Future Appointments Appointment Date:07/30/2021 09:45:00 AM Scheduled Provider: Location:[facility] Appointment Type:XR Barium Enema Complete Appointment Date:08/08/2021 03:10:00 PM Scheduled Provider:DAY VELAZQUEZ MD Location:DIGITAL PRINT OPERATOR ONC Appointment Type:SO OV Follow Up Future Scheduled Tests Radiology* XR Barium Enema Complete 07/30/21 [facility] Evaluation + Plan note Future Appointments Appointment Date:08/08/2021 03:10:00 PM Scheduled Provider:DAY VELAZQUEZ MD Location:DIGITAL PRINT OPERATOR ONC Appointment Type:SO OV Follow Up [facility] Evaluation + Plan note Future Appointments Appointment Date:11/13/2021 11:20:00 AM Scheduled Provider:DAY VELAZQUEZ MD Location:DIGITAL PRINT OPERATOR ONC Appointment Type:SO OV Follow Up [facility] Evaluation + Plan note Future Appointments Appointment Date:09/11/2021 10:20:00 AM Scheduled Provider:DAY VELAZQUEZ MD Location:DIGITAL PRINT OPERATOR ONC Appointment Type:SO OV Post Op Appointment Date:11/13/2021 11:20:00 AM Scheduled Provider:DAY VELAZQUEZ MD Location:DIGITAL PRINT OPERATOR ONC Appointment Type:SO OV Follow Up [facility] Evaluation + Plan note Future Appointments Appointment Date:09/03/2021 01:20:00 PM Scheduled Provider:QUINTON ROCHA Location:[facility] Appointment Type:SO OV Post Op Appointment Date:09/11/2021 10:20:00 AM Scheduled Provider:DAY VELAZQUEZ MD Location:[facility] Appointment Type:SO OV Post Op Appointment Date:11/13/2021 11:20:00 AM Scheduled Provider:DAY VELAZQUEZ MD Location:[facility]C Appointment Type:SO OV Follow Up [facility] Evaluation + Plan note Future Appointments Appointment Date:09/19/2021 10:10:00 AM Scheduled Provider:DAY VELAZQUEZ MD Location:[facility]C Appointment Type:SO OV Post Op Appointment Date:11/13/2021 11:20:00 AM Scheduled Provider:DAY VELAZQUEZ MD Location:[facility]C Appointment Type:SO OV Follow Up [facility] Evaluation + Plan note Future Appointments Appointment Date:10/03/2021 01:40:00 PM Scheduled Provider:DAY VELAZQUEZ MD Location:[facility] Appointment Type:SO OV Post Op Appointment Date:11/13/2021 11:20:00 AM Scheduled Provider:DAY VELAZQUEZ MD Location:[facility]C Appointment Type:SO OV Follow Up [facility] Evrenettaation + Plan note Future Appointments Appointment Date:11/13/2021 11:20:00 AM Scheduled Provider:DAY VELAZQUEZ MD Location:[facility] Appointment Type:SO OV Follow Up Appointment Date:12/05/2021 10:00:00 AM Scheduled Provider: Location:XRAY Appointment Type:XR Barium Enema Complete Appointment Date:12/12/2021 03:10:00 PM Scheduled Provider:DAY VELAZQUEZ MD Location:[facility] Appointment Type:SO OV Follow Up Future Scheduled Tests Radiology* XR Barium Enema Complete 12/05/21 [facility] Evaluation + Plan note Future Appointments Appointment Date:12/26/2021 10:00:00 AM Scheduled Provider: Location:XRAY Appointment Type:XR Barium Enema Complete Appointment Date:01/02/2022 02:50:00 PM Scheduled Provider:DAY VELAZQUEZ MD Location:[facility] Appointment Type:SO OV Follow Up Future Scheduled Tests Radiology* XR Barium Enema Complete 12/26/21 [facility] evaluation + Plan note Future Appointments Appointment Date:12/12/2021 03:10:00 PM Scheduled Provider:DAY VELAZQUEZ MD Location:[facility] Appointment Type:SO OV Follow Up Appointment Date:12/26/2021 10:00:00 AM Scheduled Provider: Location:[facility] Appointment Type:XR Barium Enema Complete Future Scheduled Tests Radiology* XR Barium Enema Complete 12/26/21 [facility] evaluation + Plan note Future Appointments Appointment Date:01/01/2022 02:30:00 PM Scheduled Provider:DAY VELAZQUEZ MD Location:[facility] Appointment Type:SO OV Follow Up [facility] SimplyInsuredaluation + Plan note Future Appointments Appointment Date:02/26/2022 11:00:00 AM Scheduled Provider:DAY VELAZQUEZ MD Location:[facility]C Appointment Type:SO OV Post Op [facility] evZipRecruiteration + Plan note Future Appointments Appointment Date:03/27/2022 11:00:00 AM Scheduled Provider:DAY VELAZQUEZ MD Location:[facility]C Appointment Type:SO OV Post Op [facility] SimplyInsuredaluation + Plan note Future Appointments Appointment Date:04/03/2022 10:00:00 AM Scheduled Provider: Location:[facility] Appointment Type:MRI Pelvis Uterine/Ovarian Appointment Date:04/09/2022 01:10:00 PM Scheduled Provider:DAY VELAZQUEZ MD Location:[facility] Appointment Type:SO OV Follow Up Future Scheduled Tests Laboratory* Clostridium difficile (PCR) 03/03/22 Radiology* MRI Pelvis Uterine/Ovarian 04/03/22 [facility] SimplyInsuredaluation + Plan note Future Appointments Appointment Date:07/16/2022 01:40:00 PM Scheduled Provider:DAY VELAZQUEZ MD Location:[facility]C Appointment Type:SO OV Follow Up Future Scheduled Tests Laboratory* Clostridium difficile (PCR) 03/03/22 [facility] SimplyInsuredaluation + Plan note Future Appointments Appointment Date:09/18/2022 01:45:00 PM Scheduled Provider:LISA HUMPHREY DO Location:Gen Surg [facility] Appointment Type:GS SKID MACHINE OPERATOR Future Scheduled Tests Laboratory* Clostridium difficile (PCR) 03/03/22 [facility] Evaluation note* Diagnosis Rectovaginal fistula- Primary Digestive-genital tract fistula, female Episiotomy dehiscence Disruption of perineal wound, unspecified as to episode of care in documented in this encounter [facility] Work Phone: Evaluation note* Diagnosis Lower abdominal pain- Primary Abdominal pain, other specified site Rectal pain Anal or rectal pain Difficult or painful urination Dysuria Acute cystitis without hematuria Acute cystitis documented in this encounter [facility] Work Phone: Evaluation note* Diagnosis Perineal pain- Primary Post-operative state- Primary Other postprocedural status documented in this encounter [facility] Work Phone: Evaluation noteThere may be information available, but it has not been provided by the sender.[facility] Work Phone: Evaluation note* Diagnosis Weight gain- Primary Abnormal weight gain documented in this encounter [facility] note* Diagnosis Weight gain- Primary Abnormal weight gain documented in this encounter [facility] note* Diagnosis Class 3 severe obesity without serious comorbidity with body mass index (BMI) of 45.0 to 49.9 in adult, unspecified obesity type (HCC)- Primary Weight gain Abnormal weight gain documented in this encounter [facility] note* Diagnosis Acute bilateral low back pain, unspecified whether sciatica present- Primary Acute sinusitis, recurrence not specified, unspecified location documented in this encounter [facility] note* Diagnosis Allergic reaction, initial encounter- Primary documented in this encounter [facility] note* Diagnosis Class 3 severe obesity without serious comorbidity with body mass index (BMI) of 45.0 to 49.9 in adult, unspecified obesity type (HCC)- Primary Encounter for screening for diabetes mellitus Screening for diabetes mellitus Weight gain Abnormal weight gain documented in this encounter [facility] note* Diagnosis Class 3 severe obesity without serious comorbidity with body mass index (BMI) of 45.0 to 49.9 in adult, unspecified obesity type (HCC)- Primary documented in this encounter [facility] note* Diagnosis IUD (intrauterine device) in place- Primary Presence of intrauterine contraceptive device PCOS (polycystic ovarian syndrome) Polycystic ovaries [facility]* Diagnosis Class 3 severe obesity without serious comorbidity with body mass index (BMI) of 45.0 to 49.9 in adult, unspecified obesity type (HCC)- Primary [facility]* Diagnosis Hernia of abdominal wall- Primary Ventral hernia, unspecified, without mention of obstruction or gangrene [facility]* Diagnosis Blurry vision, right eye- Primary Other specified visual disturbances documented in this encounter [facility] note* Diagnosis RUQ abdominal pain- Primary Abdominal pain, right upper quadrant Hernia of abdominal wall Ventral hernia, unspecified, without mention of obstruction or gangrene [facility]* Diagnosis Bronchitis- Primary Bronchitis, not specified as acute or chronic documented in this encounter [facility] note* Diagnosis Diplopia- Primary Meibomian gland dysfunction (MGD) of upper and lower lids of both eyes [facility]* Diagnosis Diplopia- Primary Intermittent alternating exotropia Intermittent exotropia, alternating Meibomian gland dysfunction (MGD) of upper and lower lids of both eyes documented in this encounter [facility] note* Diagnosis Class 3 severe obesity without serious comorbidity with body mass index (BMI) of 45.0 to 49.9 in adult, unspecified obesity type (HCC)- Primary History of gastroesophageal reflux (GERD) Personal history of other diseases of digestive system documented in this encounter [facility] note* Diagnosis Vaginal discharge- Primary Leukorrhea, not specified as infective [facility]* Diagnosis Acute pain of left shoulder- Primary documented in this encounter [facility] note* Diagnosis Well female exam with routine gynecological exam- Primary Routine gynecological examination Acute vaginitis Vaginitis and vulvovaginitis, unspecified Frequent UTI Urinary tract infection, site not specified documented in this encounter [facility] note* Diagnosis Class 3 severe obesity without serious comorbidity with body mass index (BMI) of 45.0 to 49.9 in adult, unspecified obesity type (HCC) documented in this encounter [facility] note* Diagnosis Pelvic pain- Primary documented in this encounter [facility] noteNo assessment information availableWGrand [facility] Work Phone: evaluation note* Diagnosis Class 3 severe obesity without serious comorbidity with body mass index (BMI) of 45.0 to 49.9 in adult, unspecified obesity type (HCC)- Primary [facility]* Diagnosis Treatment not available- Primary Procedure not carried out for other reasons [facility] Diagnosis Recurrent UTI- Primary Urinary tract infection, site not specified [facility]* Diagnosis Class 3 severe obesity without serious comorbidity with body mass index (BMI) of 45.0 to 49.9 in adult, unspecified obesity type (HCC) [facility]* Diagnosis Recurrent UTI- Primary Urinary tract infection, site not specified [facility] Diagnosis Onset Date Resolution Status SBO (small bowel obstruction) acute [facility] Work Phone: evaluation note* Diagnosis Class 3 severe obesity without serious comorbidity with body mass index (BMI) of 45.0 to 49.9 in adult, unspecified obesity type (HCC)- Primary Candidal intertrigo Candidiasis of skin and nails Hernia of abdominal wall Ventral hernia, unspecified, without mention of obstruction or gangrene Polycystic ovary syndrome Polycystic ovaries [facility]* Diagnosis Migraine without aura and without status migrainosus, not intractable- Primary Migraine without aura, without mention of intractable migraine without mention of status migrainosus [facility] Diagnosis White vaginal discharge- Primary Leukorrhea, not specified as infective Urethral pain Other symptoms involving urinary system Encounter for screening for diabetes mellitus Screening for diabetes mellitus [facility] Diagnosis Onset Date Resolution Status Abdominal pain resolved Nausea resolved Small bowel obstruction reso lved [facility] Work Phone: Evaluation note* Diagnosis Pelvic floor dysfunction- Primary Pelvic muscle wasting Pelvic floor dysfunction Pelvic muscle wasting [facility]* Diagnosis Pelvic floor dysfunction- Primary Pelvic muscle wasting Rectal vaginal fistula Digestive-genital tract fistula, female Pelvic floor dysfunction Pelvic muscle wasting [facility]* Diagnosis Complete intestinal obstruction, unspecified cause (HCC) [facility]* Diagnosis Pelvic floor dysfunction- Primary Pelvic muscle wasting [facility]* Diagnosis Class 3 severe obesity without serious comorbidity with body mass index (BMI) of 45.0 to 49.9 in adult, unspecified obesity type (HCC)- Primary [facility]* Diagnosis Complication of intrauterine device (IUD), unspecified complication, initial encounter (HCC) [facility]* Diagnosis Liver lesion- Primary Other specified disorders of liver [facility]* Diagnosis Calculus of gallbladder without cholecystitis without obstruction- Primary Calculus of gallbladder without mention of cholecystitis or obstruction RUQ pain Abdominal pain, right upper quadrant [facility]* Diagnosis Treatment not available- Primary Procedure not carried out for other reasons [facility]* Diagnosis Urinary frequency- Primary Right lower quadrant abdominal pain Abdominal pain, right lower quadrant [facility]* Diagnosis Class 3 severe obesity without serious comorbidity with body mass index (BMI) of 45.0 to 49.9 in adult, unspecified obesity type (HCC)- Primary [facility]* Diagnosis Menorrhagia with regular cycle- Primary Excessive or frequent menstruation Hirsutism Acne, unspecified acne type BMI 38.0-38.9,adult Body Mass Index 38.0-38.9, adult [facility]* Diagnosis Discharge from both nipples- Primary Family history of breast cancer Family history of malignant neoplasm of breast Family history of ovarian cancer Family history of malignant neoplasm of ovary Fibrocystic breast changes of both breasts Excess weight Overweight [facility]* Diagnosis Vaginal discharge- Primary Leukorrhea, not specified as infective [facility]* Diagnosis Vaginal discharge- Primary Leukorrhea, not specified as infective [facility]* Diagnosis Emergency contraceptive counseling- Primary Encounter for emergency contraceptive counseling and prescription [facility]* Diagnosis URI, acute- Primary Acute upper respiratory infections of unspecified site ETD (Eustachian tube dysfunction), right documented in this encounter [facility] note* Diagnosis Right facial swelling- Primary Swelling, mass, or lump in head and neck [facility]* Diagnosis Class 3 severe obesity without serious comorbidity with body mass index (BMI) of 45.0 to 49.9 in adult, unspecified obesity type (HCC) [facility]* Diagnosis Urinary tract infection without hematuria, site unspecified- Primary [facility]* Diagnosis Diarrhea of presumed infectious origin- Primary Abdominal cramping Abdominal pain, unspecified site documented in this encounter [facility] note* Diagnosis Class 3 severe obesity without serious comorbidity with body mass index (BMI) of 45.0 to 49.9 in adult, unspecified obesity type (HCC)- Primary Polycystic ovary syndrome Polycystic ovaries documented in this encounter [facility] note* Diagnosis Class 3 severe obesity without serious comorbidity with body mass index (BMI) of 45.0 to 49.9 in adult, unspecified obesity type (HCC) [facility]* Diagnosis Menorrhagia with irregular cycle- Primary Excessive or frequent menstruation Missed menses Absence of menstruation PCOS (polycystic ovarian syndrome) Polycystic ovaries documented in this encounter [facility] note* Diagnosis ADHD (attention deficit hyperactivity disorder), predominantly hyperactive impulsive type- Primary Attention deficit disorder with hyperactivity [facility]* Diagnosis Suprapubic pressure- Primary Abdominal pain, other specified site Vaginal discharge Leukorrhea, not specified as infective documented in this encounter [facility] note* Diagnosis Pre-op evaluation- Primary Preoperative examination, unspecified Acute deep vein thrombosis (DVT) of popliteal vein of right lower extremity (HCC) Vapes nicotine containing substance SAMAN (generalized anxiety disorder) Generalized anxiety disorder Acute deep vein thrombosis (DVT) of right upper extremity, unspecified vein (HCC) History of gastroesophageal reflux (GERD) Personal history of other diseases of digestive system Class 2 obesity without serious comorbidity with body mass index (BMI) of 36.0 to 36.9 in adult, unspecified obesity type ADHD (attention deficit hyperactivity disorder), predominantly hyperactive impulsive type- Primary Attention deficit disorder with hyperactivity documented in this encounter [facility] note* Diagnosis Pre-op evaluation- Primary Preoperative examination, unspecified Acute deep vein thrombosis (DVT) of popliteal vein of right lower extremity (HCC) Vapes nicotine containing substance SAMAN (generalized anxiety disorder) Generalized anxiety disorder Acute deep vein thrombosis (DVT) of right upper extremity, unspecified vein (HCC) History of gastroesophageal reflux (GERD) Personal history of other diseases of digestive system Class 2 obesity without serious comorbidity with body mass index (BMI) of 36.0 to 36.9 in adult, unspecified obesity type Discharge from both nipples [facility]* Diagnosis Pre-op evaluation- Primary Preoperative examination, unspecified Acute deep vein thrombosis (DVT) of popliteal vein of right lower extremity (HCC) Vapes nicotine containing substance SAMAN (generalized anxiety disorder) Generalized anxiety disorder Acute deep vein thrombosis (DVT) of right upper extremity, unspecified vein (HCC) History of gastroesophageal reflux (GERD) Personal history of other diseases of digestive system Class 2 obesity without serious comorbidity with body mass index (BMI) of 36.0 to 36.9 in adult, unspecified obesity type Acute effusion of right ear- Primary Bacterial sinusitis Unspecified sinusitis (chronic) documented in this encounter [facility] note* Diagnosis Pre-op evaluation- Primary Preoperative examination, unspecified Acute deep vein thrombosis (DVT) of popliteal vein of right lower extremity (HCC) Vapes nicotine containing substance SAMAN (generalized anxiety disorder) Generalized anxiety disorder Acute deep vein thrombosis (DVT) of right upper extremity, unspecified vein (HCC) History of gastroesophageal reflux (GERD) Personal history of other diseases of digestive system Class 2 obesity without serious comorbidity with body mass index (BMI) of 36.0 to 36.9 in adult, unspecified obesity type Excess skin- Primary Intertrigo Other specified erythematous condition History of blood clots Personal history of venous thrombosis and embolism documented in this encounter [facility] note* Diagnosis Pre-op evaluation- Primary Preoperative examination, unspecified Acute deep vein thrombosis (DVT) of popliteal vein of right lower extremity (HCC) Vapes nicotine containing substance SAMAN (generalized anxiety disorder) Generalized anxiety disorder Acute deep vein thrombosis (DVT) of right upper extremity, unspecified vein (HCC) History of gastroesophageal reflux (GERD) Personal history of other diseases of digestive system Class 2 obesity without serious comorbidity with body mass index (BMI) of 36.0 to 36.9 in adult, unspecified obesity type Discharge from both nipples- Primary Fibrocystic breast changes of both breasts Family history of breast cancer Family history of malignant neoplasm of [facility]- Primary Preoperative examination, unspecified Acute deep vein thrombosis (DVT) of popliteal vein of right lower extremity (HCC) Vapes nicotine containing substance SAMAN (generalized anxiety disorder) Generalized anxiety disorder Acute deep vein thrombosis (DVT) of right upper extremity, unspecified vein (HCC) History of gastroesophageal reflux (GERD) Personal history of other diseases of digestive system Class 2 obesity without serious comorbidity with body mass index (BMI) of 36.0 to 36.9 in adult, unspecified obesity type Menorrhagia with irregular cycle Excessive or frequent menstruation [facility]* Diagnosis Acute pain of left shoulder Pre-op evaluation- Primary Preoperative examination, unspecified Acute deep vein thrombosis (DVT) of popliteal vein of right lower extremity (HCC) Vapes nicotine containing substance SAMAN (generalized anxiety disorder) Generalized anxiety disorder Acute deep vein thrombosis (DVT) of right upper extremity, unspecified vein (HCC) History of gastroesophageal reflux (GERD) Personal history of other diseases of digestive system Class 2 obesity without serious comorbidity with body mass index (BMI) of 36.0 to 36.9 in adult, unspecified obesity type [facility]* Diagnosis Bronchitis Bronchitis, not specified as acute or chronic Pre-op evaluation- Primary Preoperative examination, unspecified Acute deep vein thrombosis (DVT) of popliteal vein of right lower extremity (HCC) Vapes nicotine containing substance SAMAN (generalized anxiety disorder) Generalized anxiety disorder Acute deep vein thrombosis (DVT) of right upper extremity, unspecified vein (HCC) History of gastroesophageal reflux (GERD) Personal history of other diseases of digestive system Class 2 obesity without serious comorbidity with body mass index (BMI) of 36.0 to 36.9 in adult, unspecified obesity type [facility] Diagnosis Pre-op evaluation- Primary Preoperative examination, unspecified Acute deep vein thrombosis (DVT) of popliteal vein of right lower extremity (HCC) Vapes nicotine containing substance SAMAN (generalized anxiety disorder) Generalized anxiety disorder Acute deep vein thrombosis (DVT) of right upper extremity, unspecified vein (HCC) History of gastroesophageal reflux (GERD) Personal history of other diseases of digestive system Class 2 obesity without serious comorbidity with body mass index (BMI) of 36.0 to 36.9 in adult, unspecified obesity type History of syncope- Primary Other specified personal history presenting hazards to health [facility]* Diagnosis Elbow injury, right, initial encounter Right elbow pain Pain in joint, upper arm Pre-op evaluation- Primary Preoperative examination, unspecified Acute deep vein thrombosis (DVT) of popliteal vein of right lower extremity (HCC) Vapes nicotine containing substance SAMAN (generalized anxiety disorder) Generalized anxiety disorder Acute deep vein thrombosis (DVT) of right upper extremity, unspecified vein (HCC) History of gastroesophageal reflux (GERD) Personal history of other diseases of digestive system Class 2 obesity without serious comorbidity with body mass index (BMI) of 36.0 to 36.9 in adult, unspecified obesity type documented in this encounter [facility] note* Diagnosis Pre-op evaluation- Primary Preoperative examination, unspecified Acute deep vein thrombosis (DVT) of popliteal vein of right lower extremity (HCC) Vapes nicotine containing substance SAMAN (generalized anxiety disorder) Generalized anxiety disorder Acute deep vein thrombosis (DVT) of right upper extremity, unspecified vein (HCC) History of gastroesophageal reflux (GERD) Personal history of other diseases of digestive system Class 2 obesity without serious comorbidity with body mass index (BMI) of 36.0 to 36.9 in adult, unspecified obesity type Positive urine test- Primary examination or test, positive result documented in this encounter [facility] note* Diagnosis Pre-op evaluation- Primary Preoperative examination, unspecified Acute deep vein thrombosis (DVT) of popliteal vein of right lower extremity (HCC) Vapes nicotine containing substance SAMAN (generalized anxiety disorder) Generalized anxiety disorder Acute deep vein thrombosis (DVT) of right upper extremity, unspecified vein (HCC) History of gastroesophageal reflux (GERD) Personal history of other diseases of digestive system Class 2 obesity without serious comorbidity with body mass index (BMI) of 36.0 to 36.9 in adult, unspecified obesity type Early stage of - Primary state, incidental History of fourth degree perineal laceration History of gestational diabetes in prior , currently with other poor obstetric history History of DVT (deep vein thrombosis) Personal history of venous thrombosis and embolism documented in this encounter [facility] note* Diagnosis Pre-op evaluation- Primary Preoperative examination, unspecified Acute deep vein thrombosis (DVT) of popliteal vein of right lower extremity (HCC) Vapes nicotine containing substance SAMAN (generalized anxiety disorder) Generalized anxiety disorder Acute deep vein thrombosis (DVT) of right upper extremity, unspecified vein (HCC) History of gastroesophageal reflux (GERD) Personal history of other diseases of digestive system Class 2 obesity without serious comorbidity with body mass index (BMI) of 36.0 to 36.9 in adult, unspecified obesity type History of blood clots- Primary Personal history of venous thrombosis and embolism PT (paroxysmal tachycardia) (HCC) Paroxysmal tachycardia, unspecified INR (international normal ratio) abnormal Abnormal coagulation profile History of syncope Other specified personal history presenting hazards to health documented [facility]* Diagnosis Pre-op evaluation- Primary Preoperative examination, unspecified Acute deep vein thrombosis (DVT) of popliteal vein of right lower extremity (HCC) Vapes nicotine containing substance SAMAN (generalized anxiety disorder) Generalized anxiety disorder Acute deep vein thrombosis (DVT) of right upper extremity, unspecified vein (HCC) History of gastroesophageal reflux (GERD) Personal history of other diseases of digestive system Class 2 obesity without serious comorbidity with body mass index (BMI) of 36.0 to 36.9 in adult, unspecified obesity type with uncertain dates, antepartum- Primary state, incidental Vaginal discharge Leukorrhea, not specified as infective 7 weeks gestation of state, incidental Encounter for supervision of normal in multigravida in first trimester History of maternal fourth degree perineal laceration, currently with other poor obstetric history Rectovaginal fistula Digestive-genital tract fistula, female Acute deep vein thrombosis (DVT) of right upper extremity, unspecified vein (HCC) documented in this encounter [facility] note* Diagnosis Pre-op evaluation- Primary Preoperative examination, unspecified Acute deep vein thrombosis (DVT) of popliteal vein of right lower extremity (HCC) Vapes nicotine containing substance SAMAN (generalized anxiety disorder) Generalized anxiety disorder Acute deep vein thrombosis (DVT) of right upper extremity, unspecified vein (HCC) History of gastroesophageal reflux (GERD) Personal history of other diseases of digestive system Class 2 obesity without serious comorbidity with body mass index (BMI) of 36.0 to 36.9 in adult, unspecified obesity type 8 weeks gestation of - Primary state, incidental documented in this encounter [facility] note* Diagnosis Pre-op evaluation- Primary Preoperative examination, unspecified Acute deep vein thrombosis (DVT) of popliteal vein of right lower extremity (HCC) Vapes nicotine containing substance SAMAN (generalized anxiety disorder) Generalized anxiety disorder Acute deep vein thrombosis (DVT) of right upper extremity, unspecified vein (HCC) History of gastroesophageal reflux (GERD) Personal history of other diseases of digestive system Class 2 obesity without serious comorbidity with body mass index (BMI) of 36.0 to 36.9 in adult, unspecified obesity type Sore throat- Primary Acute pharyngitis URI, acute Acute upper respiratory infections of unspecified site documented [facility] encounter [facility]* Diagnosis Pre-op evaluation- Primary Preoperative examination, unspecified Acute deep vein thrombosis (DVT) of popliteal vein of right lower extremity (HCC) Vapes nicotine containing substance SAMAN (generalized anxiety disorder) Generalized anxiety disorder Acute deep vein thrombosis (DVT) of right upper extremity, unspecified vein (HCC) History of gastroesophageal reflux (GERD) Personal history of other diseases of digestive system Class 2 obesity without serious comorbidity with body mass index (BMI) of 36.0 to 36.9 in adult, unspecified obesity type Supervision of high risk in second trimester- Primary Unspecified high-risk 12 weeks gestation of state, incidental Obesity affecting in second trimester, unspecified obesity type History of maternal fourth degree perineal laceration, currently with other poor obstetric history Acute deep vein thrombosis (DVT) of right upper extremity, unspecified vein (HCC) History of gestational diabetes in prior , currently with other poor obstetric history History of forceps delivery in prior , currently with other poor obstetric history Dysuria documented [facility]* Diagnosis Pre-op evaluation- Primary Preoperative examination, unspecified Acute deep vein thrombosis (DVT) of popliteal vein of right lower extremity (HCC) Vapes nicotine containing substance SAMAN (generalized anxiety disorder) Generalized anxiety disorder Acute deep vein thrombosis (DVT) of right upper extremity, unspecified vein (HCC) History of gastroesophageal reflux (GERD) Personal history of other diseases of digestive system Class 2 obesity without serious comorbidity with body mass index (BMI) of 36.0 to 36.9 in adult, unspecified obesity type Encounter for screening for malformation using ultrasound- Primary 12 weeks gestation of state, incidental documented in this encounter [facility] note* Diagnosis Pre-op evaluation- Primary Preoperative examination, unspecified Acute deep vein thrombosis (DVT) of popliteal vein of right lower extremity (HCC) Vapes nicotine containing substance SAMAN (generalized anxiety disorder) Generalized anxiety disorder Acute deep vein thrombosis (DVT) of right upper extremity, unspecified vein (HCC) History of gastroesophageal reflux (GERD) Personal history of other diseases of digestive system Class 2 obesity without serious comorbidity with body mass index (BMI) of 36.0 to 36.9 in adult, unspecified obesity type Dental abscess- Primary Periapical abscess without sinus documented in this encounter [facility]* Diagnosis Pre-op evaluation- Primary Preoperative examination, unspecified Acute deep vein thrombosis (DVT) of popliteal vein of right lower extremity (HCC) Vapes nicotine containing substance SAMAN (generalized anxiety disorder) Generalized anxiety disorder Acute deep vein thrombosis (DVT) of right upper extremity, unspecified vein (HCC) History of gastroesophageal reflux (GERD) Personal history of other diseases of digestive system Class 2 obesity without serious comorbidity with body mass index (BMI) of 36.0 to 36.9 in adult, unspecified obesity type Facial cellulitis- Primary Cellulitis and abscess of face [facility]* Diagnosis Pre-op evaluation- Primary Preoperative examination, unspecified Acute deep vein thrombosis (DVT) of popliteal vein of right lower extremity (HCC) Vapes nicotine containing substance SAMAN (generalized anxiety disorder) Generalized anxiety disorder Acute deep vein thrombosis (DVT) of right upper extremity, unspecified vein (HCC) History of gastroesophageal reflux (GERD) Personal history of other diseases of digestive system Class 2 obesity without serious comorbidity with body mass index (BMI) of 36.0 to 36.9 in adult, unspecified obesity type 16 weeks gestation of - Primary state, incidental Supervision of high risk in second trimester Unspecified high-risk Obesity affecting in second trimester, unspecified obesity type History of maternal fourth degree perineal laceration, currently with other poor obstetric history 7 weeks gestation of state, incidental [facility]* Diagnosis Pre-op evaluation- Primary Preoperative examination, unspecified Acute deep vein thrombosis (DVT) of popliteal vein of right lower extremity (HCC) Vapes nicotine containing substance SAMAN (generalized anxiety disorder) Generalized anxiety disorder Acute deep vein thrombosis (DVT) of right upper extremity, unspecified vein (HCC) History of gastroesophageal reflux (GERD) Personal history of other diseases of digestive system Class 2 obesity without serious comorbidity with body mass index (BMI) of 36.0 to 36.9 in adult, unspecified obesity type History of gestational diabetes in prior , currently - Primary with other poor obstetric history History of maternal fourth degree perineal laceration, currently with other poor obstetric history Acute deep vein thrombosis (DVT) of right upper extremity, unspecified vein (HCC) Rectovaginal fistula Digestive-genital tract fistula, female Obesity affecting in second trimester, unspecified obesity type History of forceps delivery in prior , currently with other poor obstetric history Liver hemangioma Hemangioma of intra-abdominal structures Encounter for anatomic survey- Primary Obesity affecting in second trimester, unspecified obesity type 20 weeks gestation of state, incidental documented in this encounter [facility] note* Diagnosis Pre-op evaluation- Primary Preoperative examination, unspecified Acute deep vein thrombosis (DVT) of popliteal vein of right lower extremity (HCC) Vapes nicotine containing substance SAMAN (generalized anxiety disorder) Generalized anxiety disorder Acute deep vein thrombosis (DVT) of right upper extremity, unspecified vein (HCC) History of gastroesophageal reflux (GERD) Personal history of other diseases of digestive system Class 2 obesity without serious comorbidity with body mass index (BMI) of 36.0 to 36.9 in adult, unspecified obesity type History of gestational diabetes in prior , currently - Primary with other poor obstetric history History of maternal fourth degree perineal laceration, currently with other poor obstetric history Acute deep vein thrombosis (DVT) of right upper extremity, unspecified vein (HCC) Rectovaginal fistula Digestive-genital tract fistula, female Obesity affecting in second trimester, unspecified obesity type History of forceps delivery in prior , currently with other poor obstetric history Liver hemangioma Hemangioma of intra-abdominal structures * Assessment & Plan Note - Winter Nation MD - 11/15/2024 3:39 PM ESTAssociated Problem(s): History of forceps delivery in prior , currently Offered [facility] referral today, patient considering and will contact us if interested * Assessment & Plan Note - Winter Nation MD - 11/15/2024 3:38 PM ESTAssociated Problem(s): Liver hemangioma 2.2 cm on MRI These can respond to estrogen so monitoring during a is indicated. In rare cases, liver hemangiomas can cause complications during , but most are asymptomatic and resolve on their own * Assessment & Plan Note - Winter Nation MD - 11/15/2024 2:16 PM ESTAssociated Problem(s): History of maternal fourth degree perineal laceration, currently Primary has been recommended and patient agreeable to pCS Unless additional medical indications arise would recommend 39 week primary If tertiary center preferred patient may be schedule at [facility], [facility] or [facility] per her preference documented in this encounter [facility] note* Diagnosis Pre-op evaluation- Primary Preoperative examination, unspecified Acute deep vein thrombosis (DVT) of popliteal vein of right lower extremity (HCC) Vapes nicotine containing substance SAMAN (generalized anxiety disorder) Generalized anxiety disorder Acute deep vein thrombosis (DVT) of right upper extremity, unspecified vein (HCC) History of gastroesophageal reflux (GERD) Personal history of other diseases of digestive system Class 2 obesity without serious comorbidity with body mass index (BMI) of 36.0 to 36.9 in adult, unspecified obesity type History of gestational diabetes in prior , currently - Primary with other poor obstetric history History of maternal fourth degree perineal laceration, currently with other poor obstetric history Acute deep vein thrombosis (DVT) of right upper extremity, unspecified vein (HCC) Rectovaginal fistula Digestive-genital tract fistula, female Obesity affecting in second trimester, unspecified obesity type History of forceps delivery in prior , currently with other poor obstetric history Liver hemangioma Hemangioma of intra-abdominal structures 20 weeks gestation of - Primary state, incidental Supervision of high risk in second trimester Unspecified high-risk Obesity affecting in second trimester, unspecified obesity type History of maternal fourth degree perineal laceration, currently with other poor obstetric history documented in this encounter [facility] note* Diagnosis Pre-op evaluation- Primary Preoperative examination, unspecified Acute deep vein thrombosis (DVT) of popliteal vein of right lower extremity (HCC) Vapes nicotine containing substance SAMAN (generalized anxiety disorder) Generalized anxiety disorder Acute deep vein thrombosis (DVT) of right upper extremity, unspecified vein (HCC) History of gastroesophageal reflux (GERD) Personal history of other diseases of digestive system Class 2 obesity without serious comorbidity with body mass index (BMI) of 36.0 to 36.9 in adult, unspecified obesity type History of gestational diabetes in prior , currently - Primary with other poor obstetric history History of maternal fourth degree perineal laceration, currently with other poor obstetric history Acute deep vein thrombosis (DVT) of right upper extremity, unspecified vein (HCC) Rectovaginal fistula Digestive-genital tract fistula, female Obesity affecting in second trimester, unspecified obesity type History of forceps delivery in prior , currently with other poor obstetric history Liver hemangioma Hemangioma of intra-abdominal structures Supervision of high risk in second trimester- Primary Unspecified high-risk Obesity affecting in second trimester, unspecified obesity type History of maternal fourth degree perineal laceration, currently with other poor obstetric history Acute deep vein thrombosis (DVT) of right upper extremity, unspecified vein (HCC) Rectovaginal fistula Digestive-genital tract fistula, female Liver hemangioma Hemangioma of intra-abdominal structures 24 weeks gestation of state, incidental Screening for diabetes mellitus documented [facility]* Diagnosis Pre-op evaluation- Primary Preoperative examination, unspecified Acute deep vein thrombosis (DVT) of popliteal vein of right lower extremity (HCC) Vapes nicotine containing substance SAMAN (generalized anxiety disorder) Generalized anxiety disorder Acute deep vein thrombosis (DVT) of right upper extremity, unspecified vein (HCC) History of gastroesophageal reflux (GERD) Personal history of other diseases of digestive system Class 2 obesity without serious comorbidity with body mass index (BMI) of 36.0 to 36.9 in adult, unspecified obesity type History of gestational diabetes in prior , currently - Primary with other poor obstetric history History of maternal fourth degree perineal laceration, currently with other poor obstetric history Acute deep vein thrombosis (DVT) of right upper extremity, unspecified vein (HCC) Rectovaginal fistula Digestive-genital tract fistula, female Obesity affecting in second trimester, unspecified obesity type History of forceps delivery in prior , currently with other poor obstetric history Liver hemangioma Hemangioma of intra-abdominal structures Diet controlled gestational diabetes mellitus (GDM) in third trimester- Primary documented in this encounter [facility] note* Diagnosis Pre-op evaluation- Primary Preoperative examination, unspecified Acute deep vein thrombosis (DVT) of popliteal vein of right lower extremity (HCC) Vapes nicotine containing substance SAMAN (generalized anxiety disorder) Generalized anxiety disorder Acute deep vein thrombosis (DVT) of right upper extremity, unspecified vein (HCC) History of gastroesophageal reflux (GERD) Personal history of other diseases of digestive system Class 2 obesity without serious comorbidity with body mass index (BMI) of 36.0 to 36.9 in adult, unspecified obesity type History of gestational diabetes in prior , currently (HCC)- Primary with other poor obstetric history History of maternal fourth degree perineal laceration, currently (HCC) with other poor obstetric history Acute deep vein thrombosis (DVT) of right upper extremity, unspecified vein (HCC) Rectovaginal fistula Digestive-genital tract fistula, female Obesity affecting in second trimester, unspecified obesity type (HCC) History of forceps delivery in prior , currently (HCC) with other poor obstetric history Liver hemangioma Hemangioma of intra-abdominal structures Encounter for ultrasound to check growth ([facility])- Primary Encounter for routine screening for malformation using ultrasonics Obesity affecting in second trimester, unspecified obesity type (HCC) 28 weeks gestation of (HCC) state, incidental [facility] Diagnosis Pre-op evaluation- Primary Preoperative examination, unspecified Acute deep vein thrombosis (DVT) of popliteal vein of right lower extremity (HCC) Vapes nicotine containing substance SAMAN (generalized anxiety disorder) Generalized anxiety disorder Acute deep vein thrombosis (DVT) of right upper extremity, unspecified vein (HCC) History of gastroesophageal reflux (GERD) Personal history of other diseases of digestive system Class 2 obesity without serious comorbidity with body mass index (BMI) of 36.0 to 36.9 in adult, unspecified obesity type History of gestational diabetes in prior , currently (HCC)- Primary with other poor obstetric history History of maternal fourth degree perineal laceration, currently (HCC) with other poor obstetric history Acute deep vein thrombosis (DVT) of right upper extremity, unspecified vein (HCC) Rectovaginal fistula Digestive-genital tract fistula, female Obesity affecting in second trimester, unspecified obesity type (HCC) History of forceps delivery in prior , currently (HCC) with other poor obstetric history Liver hemangioma Hemangioma of intra-abdominal structures Diet controlled gestational diabetes mellitus (GDM) in third trimester (HCC) documented [facility]* Diagnosis Pre-op evaluation- Primary Preoperative examination, unspecified Acute deep vein thrombosis (DVT) of popliteal vein of right lower extremity (HCC) Vapes nicotine containing substance SAMAN (generalized anxiety disorder) Generalized anxiety disorder Acute deep vein thrombosis (DVT) of right upper extremity, unspecified vein (HCC) History of gastroesophageal reflux (GERD) Personal history of other diseases of digestive system Class 2 obesity without serious comorbidity with body mass index (BMI) of 36.0 to 36.9 in adult, unspecified obesity type History of gestational diabetes in prior , currently ([facility])- Primary with other poor obstetric history History of maternal fourth degree perineal laceration, currently ([facility]) with other poor obstetric history Acute deep vein thrombosis (DVT) of right upper extremity, unspecified vein (HCC) Rectovaginal fistula Digestive-genital tract fistula, female Obesity affecting in second trimester, unspecified obesity type ([facility]) History of forceps delivery in prior , currently ([facility]) with other poor obstetric history Liver hemangioma Hemangioma of intra-abdominal structures Supervision of high risk in third trimester ([facility])- Primary Unspecified high-risk Diet controlled gestational diabetes mellitus (GDM) in third trimester ([facility]) History of maternal fourth degree perineal laceration, currently ([facility]) with other poor obstetric history 28 weeks gestation of ([facility]) state, incidental Obesity affecting in third trimester, unspecified obesity type ([facility]) Need for vaccination Need for prophylactic vaccination and inoculation against unspecified single disease documented in this encounter [facility] note* Diagnosis Pre-op evaluation- Primary Preoperative examination, unspecified Acute deep vein thrombosis (DVT) of popliteal vein of right lower extremity (HCC) Vapes nicotine containing substance SAMAN (generalized anxiety disorder) Generalized anxiety disorder Acute deep vein thrombosis (DVT) of right upper extremity, unspecified vein (HCC) History of gastroesophageal reflux (GERD) Personal history of other diseases of digestive system Class 2 obesity without serious comorbidity with body mass index (BMI) of 36.0 to 36.9 in adult, unspecified obesity type History of gestational diabetes in prior , currently ([facility])- Primary with other poor obstetric history History of maternal fourth degree perineal laceration, currently ([facility]) with other poor obstetric history Acute deep vein thrombosis (DVT) of right upper extremity, unspecified vein (HCC) Rectovaginal fistula Digestive-genital tract fistula, female Obesity affecting in second trimester, unspecified obesity type (HCC) History of forceps delivery in prior , currently (HCC) with other poor obstetric history Liver hemangioma Hemangioma of intra-abdominal structures 29 weeks gestation of (HCC)- Primary state, incidental Diet controlled gestational diabetes mellitus (GDM) in third trimester (HCC) History of maternal fourth degree perineal laceration, currently (HCC) with other poor obstetric history Supervision of high risk in third trimester (HCC) Unspecified high-risk Obesity affecting in second trimester, unspecified obesity type (HCC) Decreased movements in second trimester, single or unspecified fetus ([facility]) documented in this encounter [facility] note* Diagnosis Pre-op evaluation- Primary Preoperative examination, unspecified Acute deep vein thrombosis (DVT) of popliteal vein of right lower extremity (HCC) Vapes nicotine containing substance SAMAN (generalized anxiety disorder) Generalized anxiety disorder Acute deep vein thrombosis (DVT) of right upper extremity, unspecified vein (HCC) History of gastroesophageal reflux (GERD) Personal history of other diseases of digestive system Class 2 obesity without serious comorbidity with body mass index (BMI) of 36.0 to 36.9 in adult, unspecified obesity type History of gestational diabetes in prior , currently (HCC)- Primary with other poor obstetric history History of maternal fourth degree perineal laceration, currently (HCC) with other poor obstetric history Acute deep vein thrombosis (DVT) of right upper extremity, unspecified vein (HCC) Rectovaginal fistula Digestive-genital tract fistula, female Obesity affecting in second trimester, unspecified obesity type (HCC) History of forceps delivery in prior , currently (HCC) with other poor obstetric history Liver hemangioma Hemangioma of intra-abdominal structures Diet controlled gestational diabetes mellitus (GDM) in third trimester (HCC)- Primary History of maternal fourth degree perineal laceration, currently (HCC) with other poor obstetric history Supervision of high risk in third trimester (HCC) Unspecified high-risk Obesity affecting in second trimester, unspecified obesity type (HCC) 32 weeks gestation of (HCC) state, incidental * Assessment & Plan Note - Britney Griffin MD - 02/06/2025 2:14 PM EDT Associated Problem(s): Diet controlled gestational diabetes mellitus (GDM) in third trimester ([facility]) hasn't been checking BS regularly, no log today. reports 145-150 at times after meals.Fastings at times elevated. I dw/ her that I cannot recommend treatment unless I get a log to see trend/percentage of elevated BS, if she has any lows. Concnered not well controlled so check NSTs weekly and f/u growth in 3-4 weeks. Orders: URINE OB DIP B/O CONSULT TO MATERNAL MEDI; Future NON-STRESS TEST; Standing * Assessment & Plan Note - Britney Griffin MD - 02/06/2025 2:14 PM EDT Associated Problem(s): History of maternal fourth degree perineal laceration, currently ([facility]) Had extensive repair after last delivery, very concerned about going into labor and being so far from tertiary care center. D/ wher will check w/ MFM about scheduling. we discussed medical criteria for delivery < 39 weeks. D/w her at this point I would recommend consult w/ MFM about GDM and delivery recommedations. Plans primary c/s Orders: URINE OB DIP B/O CONSULT TO MATERNAL MEDI; Future * Assessment & Plan Note - Britney Griffin MD - 02/06/2025 2:14 PM EDT Associated Problem(s): Obesity complicating , second trimester ([facility]) Orders: URINE OB DIP B/O CONSULT TO MATERNAL MEDI; Future NON-STRESS TEST; Standing [facility] Diagnosis Pre-op evaluation- Primary Preoperative examination, unspecified Acute deep vein thrombosis (DVT) of popliteal vein of right lower extremity (HCC) Vapes nicotine containing substance SAMAN (generalized anxiety disorder) Generalized anxiety disorder Acute deep vein thrombosis (DVT) of right upper extremity, unspecified vein (HCC) History of gastroesophageal reflux (GERD) Personal history of other diseases of digestive system Class 2 obesity without serious comorbidity with body mass index (BMI) of 36.0 to 36.9 in adult, unspecified obesity type History of gestational diabetes in prior , currently (HCC)- Primary with other poor obstetric history History of maternal fourth degree perineal laceration, currently ([facility]) with other poor obstetric history Acute deep vein thrombosis (DVT) of right upper extremity, unspecified vein ([facility]) Rectovaginal fistula Digestive-genital tract fistula, female Obesity affecting in second trimester, unspecified obesity type ([facility]) History of forceps delivery in prior , currently ([facility]) with other poor obstetric history Liver hemangioma Hemangioma of intra-abdominal structures Encounter for ultrasound to check growth ([facility])- Primary Encounter for routine screening for malformation using ultrasonics Diet controlled gestational diabetes mellitus (GDM) in third trimester ([facility]) 32 weeks gestation of ([facility]) state, incidental Diet controlled gestational diabetes mellitus (GDM) in third trimester ([facility])- Primary History of maternal fourth degree perineal laceration, currently ([facility]) with other poor obstetric history Supervision of high risk in third trimester ([facility]) Unspecified high-risk Obesity affecting in second trimester, unspecified obesity type ([facility]) 32 weeks gestation of ([facility]) state, incidental [facility] Diagnosis Pre-op evaluation- Primary Preoperative examination, unspecified Acute deep vein thrombosis (DVT) of popliteal vein of right lower extremity (HCC) Vapes nicotine containing substance SAMAN (generalized anxiety disorder) Generalized anxiety disorder Acute deep vein thrombosis (DVT) of right upper extremity, unspecified vein (HCC) History of gastroesophageal reflux (GERD) Personal history of other diseases of digestive system Class 2 obesity without serious comorbidity with body mass index (BMI) of 36.0 to 36.9 in adult, unspecified obesity type History of gestational diabetes in prior , currently (HCC)- Primary with other poor obstetric history History of maternal fourth degree perineal laceration, currently (HCC) with other poor obstetric history Acute deep vein thrombosis (DVT) of right upper extremity, unspecified vein (HCC) Rectovaginal fistula Digestive-genital tract fistula, female Obesity affecting in second trimester, unspecified obesity type (HCC) History of forceps delivery in prior , currently (HCC) with other poor obstetric history Liver hemangioma Hemangioma of intra-abdominal structures Diet controlled gestational diabetes mellitus (GDM) in third trimester ([facility])- Primary History of maternal fourth degree perineal laceration, currently (HCC) with other poor obstetric history Supervision of high risk in third trimester ([facility]) Unspecified high-risk Obesity affecting in second trimester, unspecified obesity type ([facility]) 32 weeks gestation of ([facility]) state, incidental Decreased movements in third trimester, single or unspecified fetus ([facility])- Primary [facility] Diagnosis Pre-op evaluation- Primary Preoperative examination, unspecified Acute deep vein thrombosis (DVT) of popliteal vein of right lower extremity ([facility]) Vapes nicotine containing substance SAMAN (generalized anxiety disorder) Generalized anxiety disorder Acute deep vein thrombosis (DVT) of right upper extremity, unspecified vein ([facility]) History of gastroesophageal reflux (GERD) Personal history of other diseases of digestive system Class 2 obesity without serious comorbidity with body mass index (BMI) of 36.0 to 36.9 in adult, unspecified obesity type History of gestational diabetes in prior , currently (HCC)- Primary with other poor obstetric history History of maternal fourth degree perineal laceration, currently ([facility]) with other poor obstetric history Acute deep vein thrombosis (DVT) of right upper extremity, unspecified vein (HCC) Rectovaginal fistula Digestive-genital tract fistula, female Obesity affecting in second trimester, unspecified obesity type ([facility]) History of forceps delivery in prior , currently (HCC) with other poor obstetric history Liver hemangioma Hemangioma of intra-abdominal structures Diet controlled gestational diabetes mellitus (GDM) in third trimester ([facility])- Primary History of maternal fourth degree perineal laceration, currently ([facility]) with other poor obstetric history Supervision of high risk in third trimester ([facility]) Unspecified high-risk Obesity affecting in second trimester, unspecified obesity type ([facility]) 32 weeks gestation of (HCC) state, incidental Supervision of high risk in third trimester ([facility])- Primary Unspecified high-risk Diet controlled gestational diabetes mellitus (GDM) in third trimester ([facility]) History of maternal fourth degree perineal laceration, currently ([facility]) with other poor obstetric history Obesity affecting in second trimester, unspecified obesity type ([facility]) * Assessment & Plan Note - Topher Mccord MD - 02/15/2025 11:05 AM EDTAssociated Problem(s): Diet controlled gestational diabetes mellitus (GDM) in third trimester ([facility]) - importance of having BS log to review d/w patient- advised needs to bring to next appt. Orders: URINE OB DIP B/O * Assessment & Plan Note - Topher Mccord MD - 02/15/2025 11:05 AM EDTAssociated Problem(s): History of maternal fourth degree perineal laceration, currently ([facility]) - primary cs planned Orders: URINE OB DIP B/O * Assessment & Plan Note - Topher Mccord MD - 02/15/2025 11:05 AM EDTAssociated Problem(s): Obesity complicating , second trimester ([facility]) - NSTs weekly Orders: URINE OB DIP B/O documented in this encounter [facility] note* Diagnosis Pre-op evaluation- Primary Preoperative examination, unspecified Acute deep vein thrombosis (DVT) of popliteal vein of right lower extremity ([facility]) Vapes nicotine containing substance SAMAN (generalized anxiety disorder) Generalized anxiety disorder Acute deep vein thrombosis (DVT) of right upper extremity, unspecified vein ([facility]) History of gastroesophageal reflux (GERD) Personal history of other diseases of digestive system Class 2 obesity without serious comorbidity with body mass index (BMI) of 36.0 to 36.9 in adult, unspecified obesity type History of gestational diabetes in prior , currently ([facility])- Primary with other poor obstetric history History of maternal fourth degree perineal laceration, currently ([facility]) with other poor obstetric history Acute deep vein thrombosis (DVT) of right upper extremity, unspecified vein ([facility]) Rectovaginal fistula Digestive-genital tract fistula, female Obesity affecting in second trimester, unspecified obesity type ([facility]) History of forceps delivery in prior , currently ([facility]) with other poor obstetric history Liver hemangioma Hemangioma of intra-abdominal structures Diet controlled gestational diabetes mellitus (GDM) in third trimester ([facility])- Primary History of maternal fourth degree perineal laceration, currently ([facility]) with other poor obstetric history Supervision of high risk in third trimester ([facility]) Unspecified high-risk Obesity affecting in second trimester, unspecified obesity type ([facility]) 32 weeks gestation of ([facility]) state, incidental Supervision of high risk in third trimester ([facility])- Primary Unspecified high-risk Diet controlled gestational diabetes mellitus (GDM) in third trimester ([facility]) History of maternal fourth degree perineal laceration, currently ([facility]) with other poor obstetric history Obesity affecting in second trimester, unspecified obesity type ([facility]) Supervision of high risk in third trimester ([facility])- Primary Unspecified high-risk Insulin controlled gestational diabetes mellitus (GDM) in third trimester ([facility]) History of maternal fourth degree perineal laceration, currently ([facility]) with other poor obstetric history Obesity affecting in second trimester, unspecified obesity type ([facility]) * Assessment & Plan Note - Topher Mccord MD - 02/16/2025 12:29 PM EDTAssociated Problem(s): History of maternal fourth degree perineal laceration, currently ([facility]) Primary cs scheduled at [facility] for h/o ileostomy with previous 4th degree * Assessment & Plan Note - Topher Mccord MD - 02/16/2025 12:29 PM EDTAssociated Problem(s): Insulin controlled gestational diabetes mellitus (GDM) in third trimester ([facility]) Decision to start Insulin based on BS log today- will start 12 units NPH at night and morning - pt counseled on proper administration. - pt to follow up with [facility] Thursday Orders: insulin NPH subcutaneous pen; Inject 12 Units subcutaneously two times a day at 6 am and 9 pm. * Assessment & Plan Note - Topher Mccord MD - 02/16/2025 11:46 AM EDTAssociated Problem(s): Obesity complicating , second trimester ([facility]) [facility] Diagnosis Pre-op evaluation- Primary Preoperative examination, unspecified Acute deep vein thrombosis (DVT) of popliteal vein of right lower extremity ([facility]) Vapes nicotine containing substance SAMAN (generalized anxiety disorder) Generalized anxiety disorder Acute deep vein thrombosis (DVT) of right upper extremity, unspecified vein ([facility]) History of gastroesophageal reflux (GERD) Personal history of other diseases of digestive system Class 2 obesity without serious comorbidity with body mass index (BMI) of 36.0 to 36.9 in adult, unspecified obesity type History of gestational diabetes in prior , currently ([facility])- Primary with other poor obstetric history History of maternal fourth degree perineal laceration, currently ([facility]) with other poor obstetric history Acute deep vein thrombosis (DVT) of right upper extremity, unspecified vein ([facility]) Rectovaginal fistula Digestive-genital tract fistula, female Obesity affecting in second trimester, unspecified obesity type ([facility]) History of forceps delivery in prior , currently ([facility]) with other poor obstetric history Liver hemangioma Hemangioma of intra-abdominal structures Diet controlled gestational diabetes mellitus (GDM) in third trimester ([facility])- Primary History of maternal fourth degree perineal laceration, currently ([facility]) with other poor obstetric history Supervision of high risk in third trimester ([facility]) Unspecified high-risk Obesity affecting in second trimester, unspecified obesity type ([facility]) 32 weeks gestation of ([facility]) state, incidental Supervision of high risk in third trimester ([facility])- Primary Unspecified high-risk Diet controlled gestational diabetes mellitus (GDM) in third trimester ([facility]) History of maternal fourth degree perineal laceration, currently ([facility]) with other poor obstetric history Obesity affecting in second trimester, unspecified obesity type ([facility]) Supervision of high risk in third trimester ([facility])- Primary Unspecified high-risk Insulin controlled gestational diabetes mellitus (GDM) in third trimester ([facility]) History of maternal fourth degree perineal laceration, currently ([facility]) with other poor obstetric history Obesity affecting in second trimester, unspecified obesity type ([facility]) Gestational diabetes mellitus (GDM) requiring insulin ([facility])- Primary Diet controlled gestational diabetes mellitus (GDM) in third trimester ([facility]) History of maternal fourth degree perineal laceration, currently ([facility]) with other poor obstetric history Supervision of high risk in third trimester ([facility]) Unspecified high-risk Obesity affecting in second trimester, unspecified obesity type ([facility]) Insulin controlled gestational diabetes mellitus (GDM) in third trimester ([facility]) 34 weeks gestation of ([facility]) state, incidental Insulin controlled gestational diabetes mellitus (GDM) in third trimester ([facility]) [facility] Diagnosis Pre-op evaluation- Primary Preoperative examination, unspecified Acute deep vein thrombosis (DVT) of popliteal vein of right lower extremity ([facility]) Vapes nicotine containing substance SAMAN (generalized anxiety disorder) Generalized anxiety disorder Acute deep vein thrombosis (DVT) of right upper extremity, unspecified vein ([facility]) History of gastroesophageal reflux (GERD) Personal history of other diseases of digestive system Class 2 obesity without serious comorbidity with body mass index (BMI) of 36.0 to 36.9 in adult, unspecified obesity type History of gestational diabetes in prior , currently ([facility])- Primary with other poor obstetric history History of maternal fourth degree perineal laceration, currently ([facility]) with other poor obstetric history Acute deep vein thrombosis (DVT) of right upper extremity, unspecified vein ([facility]) Rectovaginal fistula Digestive-genital tract fistula, female Obesity affecting in second trimester, unspecified obesity type ([facility]) History of forceps delivery in prior , currently ([facility]) with other poor obstetric history Liver hemangioma Hemangioma of intra-abdominal structures Diet controlled gestational diabetes mellitus (GDM) in third trimester ([facility])- Primary History of maternal fourth degree perineal laceration, currently ([facility]) with other poor obstetric history Supervision of high risk in third trimester ([facility]) Unspecified high-risk Obesity affecting in second trimester, unspecified obesity type ([facility]) 32 weeks gestation of ([facility]) state, incidental Supervision of high risk in third trimester ([facility])- Primary Unspecified high-risk Diet controlled gestational diabetes mellitus (GDM) in third trimester ([facility]) History of maternal fourth degree perineal laceration, currently ([facility]) with other poor obstetric history Obesity affecting in second trimester, unspecified obesity type ([facility]) Supervision of high risk in third trimester ([facility])- Primary Unspecified high-risk Insulin controlled gestational diabetes mellitus (GDM) in third trimester ([facility]) History of maternal fourth degree perineal laceration, currently ([facility]) with other poor obstetric history Obesity affecting in second trimester, unspecified obesity type ([facility]) Gestational diabetes mellitus (GDM) requiring insulin ([facility])- Primary 34 weeks gestation of ([facility]) state, incidental Insulin controlled gestational diabetes mellitus (GDM) in third trimester ([facility]) [facility] Diagnosis Pre-op evaluation- Primary Preoperative examination, unspecified Acute deep vein thrombosis (DVT) of popliteal vein of right lower extremity ([facility]) Vapes nicotine containing substance SAMAN (generalized anxiety disorder) Generalized anxiety disorder Acute deep vein thrombosis (DVT) of right upper extremity, unspecified vein ([facility]) History of gastroesophageal reflux (GERD) Personal history of other diseases of digestive system Class 2 obesity without serious comorbidity with body mass index (BMI) of 36.0 to 36.9 in adult, unspecified obesity type History of gestational diabetes in prior , currently ([facility])- Primary with other poor obstetric history History of maternal fourth degree perineal laceration, currently ([facility]) with other poor obstetric history Acute deep vein thrombosis (DVT) of right upper extremity, unspecified vein ([facility]) Rectovaginal fistula Digestive-genital tract fistula, female Obesity affecting in second trimester, unspecified obesity type ([facility]) History of forceps delivery in prior , currently ([facility]) with other poor obstetric history Liver hemangioma Hemangioma of intra-abdominal structures Diet controlled gestational diabetes mellitus (GDM) in third trimester ([facility])- Primary History of maternal fourth degree perineal laceration, currently ([facility]) with other poor obstetric history Supervision of high risk in third trimester ([facility]) Unspecified high-risk Obesity affecting in second trimester, unspecified obesity type ([facility]) 32 weeks gestation of ([facility]) state, incidental Supervision of high risk in third trimester ([facility])- Primary Unspecified high-risk Diet controlled gestational diabetes mellitus (GDM) in third trimester ([facility]) History of maternal fourth degree perineal laceration, currently ([facility]) with other poor obstetric history Obesity affecting in second trimester, unspecified obesity type ([facility]) Supervision of high risk in third trimester ([facility])- Primary Unspecified high-risk Insulin controlled gestational diabetes mellitus (GDM) in third trimester ([facility]) History of maternal fourth degree perineal laceration, currently ([facility]) with other poor obstetric history Obesity affecting in second trimester, unspecified obesity type ([facility]) Diet controlled gestational diabetes mellitus (GDM) in third trimester ([facility])- Primary Supervision of high risk in third trimester ([facility]) Unspecified high-risk Gestational diabetes mellitus (GDM) requiring insulin ([facility]) Insulin controlled gestational diabetes mellitus (GDM) in third trimester ([facility]) [facility] Diagnosis Pre-op evaluation- Primary Preoperative examination, unspecified Acute deep vein thrombosis (DVT) of popliteal vein of right lower extremity ([facility]) Vapes nicotine containing substance SAMAN (generalized anxiety disorder) Generalized anxiety disorder Acute deep vein thrombosis (DVT) of right upper extremity, unspecified vein ([facility]) History of gastroesophageal reflux (GERD) Personal history of other diseases of digestive system Class 2 obesity without serious comorbidity with body mass index (BMI) of 36.0 to 36.9 in adult, unspecified obesity type History of gestational diabetes in prior , currently ([facility])- Primary with other poor obstetric history History of maternal fourth degree perineal laceration, currently ([facility]) with other poor obstetric history Acute deep vein thrombosis (DVT) of right upper extremity, unspecified vein ([facility]) Rectovaginal fistula Digestive-genital tract fistula, female Obesity affecting in second trimester, unspecified obesity type ([facility]) History of forceps delivery in prior , currently ([facility]) with other poor obstetric history Liver hemangioma Hemangioma of intra-abdominal structures Elevated glucose tolerance test- Primary Impaired glucose tolerance test Diet controlled gestational diabetes mellitus (GDM) in third trimester ([facility])- Primary History of maternal fourth degree perineal laceration, currently ([facility]) with other poor obstetric history Supervision of high risk in third trimester ([facility]) Unspecified high-risk Obesity affecting in second trimester, unspecified obesity type ([facility]) 32 weeks gestation of ([facility]) state, incidental Supervision of high risk in third trimester ([facility])- Primary Unspecified high-risk Diet controlled gestational diabetes mellitus (GDM) in third trimester ([facility]) History of maternal fourth degree perineal laceration, currently ([facility]) with other poor obstetric history Obesity affecting in second trimester, unspecified obesity type ([facility]) Supervision of high risk in third trimester ([facility])- Primary Unspecified high-risk Insulin controlled gestational diabetes mellitus (GDM) in third trimester ([facility]) History of maternal fourth degree perineal laceration, currently ([facility]) with other poor obstetric history Obesity affecting in second trimester, unspecified obesity type ([facility]) Insulin controlled gestational diabetes mellitus (GDM) in third trimester ([facility]) [facility] Diagnosis Pre-op evaluation- Primary Preoperative examination, unspecified Acute deep vein thrombosis (DVT) of popliteal vein of right lower extremity ([facility]) Vapes nicotine containing substance SAMAN (generalized anxiety disorder) Generalized anxiety disorder Acute deep vein thrombosis (DVT) of right upper extremity, unspecified vein ([facility]) History of gastroesophageal reflux (GERD) Personal history of other diseases of digestive system Class 2 obesity without serious comorbidity with body mass index (BMI) of 36.0 to 36.9 in adult, unspecified obesity type History of gestational diabetes in prior , currently ([facility])- Primary with other poor obstetric history History of maternal fourth degree perineal laceration, currently ([facility]) with other poor obstetric history Acute deep vein thrombosis (DVT) of right upper extremity, unspecified vein ([facility]) Rectovaginal fistula Digestive-genital tract fistula, female Obesity affecting in second trimester, unspecified obesity type ([facility]) History of forceps delivery in prior , currently ([facility]) with other poor obstetric history Liver hemangioma Hemangioma of intra-abdominal structures Diet controlled gestational diabetes mellitus (GDM) in third trimester ([facility])- Primary History of maternal fourth degree perineal laceration, currently ([facility]) with other poor obstetric history Supervision of high risk in third trimester ([facility]) Unspecified high-risk Obesity affecting in second trimester, unspecified obesity type ([facility]) 32 weeks gestation of ([facility]) state, incidental Supervision of high risk in third trimester ([facility])- Primary Unspecified high-risk Diet controlled gestational diabetes mellitus (GDM) in third trimester ([facility]) History of maternal fourth degree perineal laceration, currently ([facility]) with other poor obstetric history Obesity affecting in second trimester, unspecified obesity type ([facility]) Supervision of high risk in third trimester ([facility])- Primary Unspecified high-risk Insulin controlled gestational diabetes mellitus (GDM) in third trimester ([facility]) History of maternal fourth degree perineal laceration, currently ([facility]) with other poor obstetric history Obesity affecting in second trimester, unspecified obesity type ([facility]) Supervision of high risk in third trimester ([facility])- Primary Unspecified high-risk Insulin controlled gestational diabetes mellitus (GDM) in third trimester ([facility]) History of maternal fourth degree perineal laceration, currently ([facility]) with other poor obstetric history Obesity affecting in second trimester, unspecified obesity type ([facility]) 35 weeks gestation of ([facility]) state, incidental Encounter for ultrasound to check growth ([facility])- Primary Encounter for routine screening for malformation using ultrasonics 36 weeks gestation of ([facility]) state, incidental Insulin controlled gestational diabetes mellitus (GDM) in third trimester ([facility]) Obesity affecting in second trimester, unspecified obesity type ([facility]) Insulin controlled gestational diabetes mellitus (GDM) in third trimester ([facility]) [facility] Diagnosis Pre-op evaluation- Primary Preoperative examination, unspecified Acute deep vein thrombosis (DVT) of popliteal vein of right lower extremity ([facility]) Vapes nicotine containing substance SAMAN (generalized anxiety disorder) Generalized anxiety disorder Acute deep vein thrombosis (DVT) of right upper extremity, unspecified vein ([facility]) History of gastroesophageal reflux (GERD) Personal history of other diseases of digestive system Class 2 obesity without serious comorbidity with body mass index (BMI) of 36.0 to 36.9 in adult, unspecified obesity type History of gestational diabetes in prior , currently ([facility])- Primary with other poor obstetric history History of maternal fourth degree perineal laceration, currently ([facility]) with other poor obstetric history Acute deep vein thrombosis (DVT) of right upper extremity, unspecified vein ([facility]) Rectovaginal fistula Digestive-genital tract fistula, female Obesity affecting in second trimester, unspecified obesity type ([facility]) History of forceps delivery in prior , currently ([facility]) with other poor obstetric history Liver hemangioma Hemangioma of intra-abdominal structures Diet controlled gestational diabetes mellitus (GDM) in third trimester ([facility])- Primary History of maternal fourth degree perineal laceration, currently ([facility]) with other poor obstetric history Supervision of high risk in third trimester ([facility]) Unspecified high-risk Obesity affecting in second trimester, unspecified obesity type ([facility]) 32 weeks gestation of ([facility]) state, incidental Supervision of high risk in third trimester ([facility])- Primary Unspecified high-risk Diet controlled gestational diabetes mellitus (GDM) in third trimester ([facility]) History of maternal fourth degree perineal laceration, currently ([facility]) with other poor obstetric history Obesity affecting in second trimester, unspecified obesity type ([facility]) Supervision of high risk in third trimester ([facility])- Primary Unspecified high-risk Insulin controlled gestational diabetes mellitus (GDM) in third trimester ([facility]) History of maternal fourth degree perineal laceration, currently ([facility]) with other poor obstetric history Obesity affecting in second trimester, unspecified obesity type ([facility]) Supervision of high risk in third trimester ([facility])- Primary Unspecified high-risk Insulin controlled gestational diabetes mellitus (GDM) in third trimester ([facility]) History of maternal fourth degree perineal laceration, currently ([facility]) with other poor obstetric history Obesity affecting in second trimester, unspecified obesity type ([facility]) 35 weeks gestation of ([facility]) state, incidental Supervision of high risk in third trimester ([facility])- Primary Unspecified high-risk Insulin controlled gestational diabetes mellitus (GDM) in third trimester ([facility]) History of maternal fourth degree perineal laceration, currently ([facility]) with other poor obstetric history Obesity affecting in second trimester, unspecified obesity type ([facility]) 36 weeks gestation of ([facility]) state, incidental Insulin controlled gestational diabetes mellitus (GDM) in third trimester ([facility]) documented in this encounter [facility]* Diagnosis Pre-op evaluation- Primary Preoperative examination, unspecified Acute deep vein thrombosis (DVT) of popliteal vein of right lower extremity ([facility]) Vapes nicotine containing substance SAMAN (generalized anxiety disorder) Generalized anxiety disorder Acute deep vein thrombosis (DVT) of right upper extremity, unspecified vein ([facility]) History of gastroesophageal reflux (GERD) Personal history of other diseases of digestive system Class 2 obesity without serious comorbidity with body mass index (BMI) of 36.0 to 36.9 in adult, unspecified obesity type History of gestational diabetes in prior , currently ([facility])- Primary with other poor obstetric history History of maternal fourth degree perineal laceration, currently ([facility]) with other poor obstetric history Acute deep vein thrombosis (DVT) of right upper extremity, unspecified vein ([facility]) Rectovaginal fistula Digestive-genital tract fistula, female Obesity affecting in second trimester, unspecified obesity type ([facility]) History of forceps delivery in prior , currently ([facility]) with other poor obstetric history Liver hemangioma Hemangioma of intra-abdominal structures Diet controlled gestational diabetes mellitus (GDM) in third trimester ([facility])- Primary History of maternal fourth degree perineal laceration, currently ([facility]) with other poor obstetric history Supervision of high risk in third trimester ([facility]) Unspecified high-risk Obesity affecting in second trimester, unspecified obesity type ([facility]) 32 weeks gestation of ([facility]) state, incidental Supervision of high risk in third trimester ([facility])- Primary Unspecified high-risk Diet controlled gestational diabetes mellitus (GDM) in third trimester ([facility]) History of maternal fourth degree perineal laceration, currently ([facility]) with other poor obstetric history Obesity affecting in second trimester, unspecified obesity type ([facility]) Supervision of high risk in third trimester ([facility])- Primary Unspecified high-risk Insulin controlled gestational diabetes mellitus (GDM) in third trimester ([facility]) History of maternal fourth degree perineal laceration, currently ([facility]) with other poor obstetric history Obesity affecting in second trimester, unspecified obesity type ([facility]) Supervision of high risk in third trimester ([facility])- Primary Unspecified high-risk Insulin controlled gestational diabetes mellitus (GDM) in third trimester ([facility]) History of maternal fourth degree perineal laceration, currently ([facility]) with other poor obstetric history Obesity affecting in second trimester, unspecified obesity type ([facility]) 35 weeks gestation of ([facility]) state, incidental 37 weeks gestation of ([facility])- Primary state, incidental Supervision of high risk in third trimester ([facility]) Unspecified high-risk Insulin controlled gestational diabetes mellitus (GDM) in third trimester ([facility]) Obesity affecting in second trimester, unspecified obesity type ([facility]) 38 weeks gestation of ([facility])- Primary state, incidental Supervision of high risk in third trimester ([facility]) Unspecified high-risk Insulin controlled gestational diabetes mellitus (GDM) in third trimester ([facility]) Obesity affecting in second trimester, unspecified obesity type ([facility]) Insulin controlled gestational diabetes mellitus (GDM) in third trimester ([facility]) [facility] Diagnosis Pre-op evaluation- Primary Preoperative examination, unspecified Acute deep vein thrombosis (DVT) of popliteal vein of right lower extremity ([facility]) Vapes nicotine containing substance SAMAN (generalized anxiety disorder) Generalized anxiety disorder Acute deep vein thrombosis (DVT) of right upper extremity, unspecified vein ([facility]) History of gastroesophageal reflux (GERD) Personal history of other diseases of digestive system Class 2 obesity without serious comorbidity with body mass index (BMI) of 36.0 to 36.9 in adult, unspecified obesity type History of gestational diabetes in prior , currently ([facility])- Primary with other poor obstetric history History of maternal fourth degree perineal laceration, currently ([facility]) with other poor obstetric history Acute deep vein thrombosis (DVT) of right upper extremity, unspecified vein ([facility]) Rectovaginal fistula Digestive-genital tract fistula, female Obesity affecting in second trimester, unspecified obesity type ([facility]) History of forceps delivery in prior , currently ([facility]) with other poor obstetric history Liver hemangioma Hemangioma of intra-abdominal structures Diet controlled gestational diabetes mellitus (GDM) in third trimester ([facility])- Primary History of maternal fourth degree perineal laceration, currently ([facility]) with other poor obstetric history Supervision of high risk in third trimester ([facility]) Unspecified high-risk Obesity affecting in second trimester, unspecified obesity type ([facility]) 32 weeks gestation of ([facility]) state, incidental Supervision of high risk in third trimester ([facility])- Primary Unspecified high-risk Diet controlled gestational diabetes mellitus (GDM) in third trimester ([facility]) History of maternal fourth degree perineal laceration, currently ([facility]) with other poor obstetric history Obesity affecting in second trimester, unspecified obesity type ([facility]) Supervision of high risk in third trimester ([facility])- Primary Unspecified high-risk Insulin controlled gestational diabetes mellitus (GDM) in third trimester ([facility]) History of maternal fourth degree perineal laceration, currently ([facility]) with other poor obstetric history Obesity affecting in second trimester, unspecified obesity type ([facility]) Supervision of high risk in third trimester ([facility])- Primary Unspecified high-risk Insulin controlled gestational diabetes mellitus (GDM) in third trimester ([facility]) History of maternal fourth degree perineal laceration, currently ([facility]) with other poor obstetric history Obesity affecting in second trimester, unspecified obesity type ([facility]) 35 weeks gestation of ([facility]) state, incidental 37 weeks gestation of ([facility])- Primary state, incidental Supervision of high risk in third trimester ([facility]) Unspecified high-risk Insulin controlled gestational diabetes mellitus (GDM) in third trimester ([facility]) Obesity affecting in second trimester, unspecified obesity type ([facility]) 38 weeks gestation of ([facility])- Primary state, incidental Supervision of high risk in third trimester ([facility]) Unspecified high-risk Insulin controlled gestational diabetes mellitus (GDM) in third trimester ([facility]) [facility] Diagnosis Pre-op evaluation- Primary Preoperative examination, unspecified Acute deep vein thrombosis (DVT) of popliteal vein of right lower extremity ([facility]) Vapes nicotine containing substance SAMAN (generalized anxiety disorder) Generalized anxiety disorder Acute deep vein thrombosis (DVT) of right upper extremity, unspecified vein ([facility]) History of gastroesophageal reflux (GERD) Personal history of other diseases of digestive system Class 2 obesity without serious comorbidity with body mass index (BMI) of 36.0 to 36.9 in adult, unspecified obesity type History of gestational diabetes in prior , currently ([facility])- Primary with other poor obstetric history History of maternal fourth degree perineal laceration, currently ([facility]) with other poor obstetric history Acute deep vein thrombosis (DVT) of right upper extremity, unspecified vein ([facility]) Rectovaginal fistula Digestive-genital tract fistula, female Obesity affecting in second trimester, unspecified obesity type ([facility]) History of forceps delivery in prior , currently ([facility]) with other poor obstetric history Liver hemangioma Hemangioma of intra-abdominal structures Diet controlled gestational diabetes mellitus (GDM) in third trimester ([facility])- Primary History of maternal fourth degree perineal laceration, currently ([facility]) with other poor obstetric history Supervision of high risk in third trimester ([facility]) Unspecified high-risk Obesity affecting in second trimester, unspecified obesity type ([facility]) 32 weeks gestation of ([facility]) state, incidental Supervision of high risk in third trimester ([facility])- Primary Unspecified high-risk Diet controlled gestational diabetes mellitus (GDM) in third trimester ([facility]) History of maternal fourth degree perineal laceration, currently ([facility]) with other poor obstetric history Obesity affecting in second trimester, unspecified obesity type ([facility]) Supervision of high risk in third trimester ([facility])- Primary Unspecified high-risk Insulin controlled gestational diabetes mellitus (GDM) in third trimester ([facility]) History of maternal fourth degree perineal laceration, currently ([facility]) with other poor obstetric history Obesity affecting in second trimester, unspecified obesity type ([facility]) Supervision of high risk in third trimester ([facility])- Primary Unspecified high-risk Insulin controlled gestational diabetes mellitus (GDM) in third trimester ([facility]) History of maternal fourth degree perineal laceration, currently ([facility]) with other poor obstetric history Obesity affecting in second trimester, unspecified obesity type ([facility]) 35 weeks gestation of ([facility]) state, incidental 37 weeks gestation of ([facility])- Primary state, incidental Supervision of high risk in third trimester ([facility]) Unspecified high-risk Insulin controlled gestational diabetes mellitus (GDM) in third trimester ([facility]) Obesity affecting in second trimester, unspecified obesity type ([facility]) Insulin controlled gestational diabetes mellitus (GDM) in third trimester ([facility]) * Assessment & Plan Note - Tahmina Dumont MD - 03/14/2025 2:58 PM EDTAssociated Problem(s): Insulin controlled gestational diabetes mellitus (GDM) in third trimester ([facility]) She reports FBS in 80's and PPBS less than 138. She forgot her log today. Continue insulin. Orders: URINE OB DIP B/O * Assessment & Plan Note - Tahmina Dumont MD - 03/14/2025 1:54 PM EDTAssociated Problem(s): Obesity complicating , second trimester ([facility]) Orders: URINE OB DIP B/O [facility] Diagnosis Pre-op evaluation- Primary Preoperative examination, unspecified Acute deep vein thrombosis (DVT) of popliteal vein of right lower extremity ([facility]) Vapes nicotine containing substance SAMAN (generalized anxiety disorder) Generalized anxiety disorder Acute deep vein thrombosis (DVT) of right upper extremity, unspecified vein ([facility]) History of gastroesophageal reflux (GERD) Personal history of other diseases of digestive system Class 2 obesity without serious comorbidity with body mass index (BMI) of 36.0 to 36.9 in adult, unspecified obesity type History of gestational diabetes in prior , currently ([facility])- Primary with other poor obstetric history History of maternal fourth degree perineal laceration, currently ([facility]) with other poor obstetric history Acute deep vein thrombosis (DVT) of right upper extremity, unspecified vein ([facility]) Rectovaginal fistula Digestive-genital tract fistula, female Obesity affecting in second trimester, unspecified obesity type ([facility]) History of forceps delivery in prior , currently ([facility]) with other poor obstetric history Liver hemangioma Hemangioma of intra-abdominal structures Supervision of high risk in third trimester ([facility])- Primary Unspecified high-risk Insulin controlled gestational diabetes mellitus (GDM) in third trimester ([facility]) History of maternal fourth degree perineal laceration, currently ([facility]) with other poor obstetric history Obesity affecting in second trimester, unspecified obesity type ([facility]) care following delivery ([facility]) Routine follow-up SAMAN (generalized anxiety disorder) Generalized anxiety disorder Acute deep vein thrombosis (DVT) of right upper extremity ([facility]) Rectovaginal fistula Digestive-genital tract fistula, female Insulin controlled gestational diabetes mellitus (GDM) in third trimester ([facility]) ABLA (acute blood loss anemia) Supervision of high risk in third trimester ([facility])- Primary Unspecified high-risk Insulin controlled gestational diabetes mellitus (GDM) in third trimester ([facility]) History of maternal fourth degree perineal laceration, currently ([facility]) with other poor obstetric history Obesity affecting in second trimester, unspecified obesity type ([facility]) 35 weeks gestation of ([facility]) state, incidental 37 weeks gestation of ([facility])- Primary state, incidental Supervision of high risk in third trimester ([facility]) Unspecified high-risk Insulin controlled gestational diabetes mellitus (GDM) in third trimester ([facility]) Obesity affecting in second trimester, unspecified obesity type ([facility]) care following delivery ([facility])- Primary Routine follow-up [facility] Diagnosis Pre-op evaluation- Primary Preoperative examination, unspecified Acute deep vein thrombosis (DVT) of popliteal vein of right lower extremity ([facility]) Vapes nicotine containing substance SAMAN (generalized anxiety disorder) Generalized anxiety disorder Acute deep vein thrombosis (DVT) of right upper extremity, unspecified vein ([facility]) History of gastroesophageal reflux (GERD) Personal history of other diseases of digestive system Class 2 obesity without serious comorbidity with body mass index (BMI) of 36.0 to 36.9 in adult, unspecified obesity type History of gestational diabetes in prior , currently ([facility])- Primary with other poor obstetric history History of maternal fourth degree perineal laceration, currently ([facility]) with other poor obstetric history Acute deep vein thrombosis (DVT) of right upper extremity, unspecified vein ([facility]) Rectovaginal fistula Digestive-genital tract fistula, female Obesity affecting in second trimester, unspecified obesity type ([facility]) History of forceps delivery in prior , currently ([facility]) with other poor obstetric history Liver hemangioma Hemangioma of intra-abdominal structures Supervision of high risk in third trimester ([facility])- Primary Unspecified high-risk Insulin controlled gestational diabetes mellitus (GDM) in third trimester ([facility]) History of maternal fourth degree perineal laceration, currently ([facility]) with other poor obstetric history Obesity affecting in second trimester, unspecified obesity type ([facility]) care following delivery ([facility]) Routine follow-up SAMAN (generalized anxiety disorder) Generalized anxiety disorder Acute deep vein thrombosis (DVT) of right upper extremity ([facility]) Rectovaginal fistula Digestive-genital tract fistula, female Insulin controlled gestational diabetes mellitus (GDM) in third trimester ([facility]) ABLA (acute blood loss anemia) Supervision of high risk in third trimester ([facility])- Primary Unspecified high-risk Insulin controlled gestational diabetes mellitus (GDM) in third trimester ([facility]) History of maternal fourth degree perineal laceration, currently ([facility]) with other poor obstetric history Obesity affecting in second trimester, unspecified obesity type ([facility]) 35 weeks gestation of ([facility]) state, incidental 37 weeks gestation of ([facility])- Primary state, incidental Supervision of high risk in third trimester ([facility]) Unspecified high-risk Insulin controlled gestational diabetes mellitus (GDM) in third trimester ([facility]) Obesity affecting in second trimester, unspecified obesity type ([facility]) care and examination ([facility])- Primary Routine follow-up documented [facility] Diagnosis Pre-op evaluation- Primary Preoperative examination, unspecified Acute deep vein thrombosis (DVT) of popliteal vein of right lower extremity ([facility]) Vapes nicotine containing substance SAMAN (generalized anxiety disorder) Generalized anxiety disorder Acute deep vein thrombosis (DVT) of right upper extremity, unspecified vein ([facility]) History of gastroesophageal reflux (GERD) Personal history of other diseases of digestive system Class 2 obesity without serious comorbidity with body mass index (BMI) of 36.0 to 36.9 in adult, unspecified obesity type History of gestational diabetes in prior , currently ([facility])- Primary with other poor obstetric history History of maternal fourth degree perineal laceration, currently ([facility]) with other poor obstetric history Acute deep vein thrombosis (DVT) of right upper extremity, unspecified vein ([facility]) Rectovaginal fistula Digestive-genital tract fistula, female Obesity affecting in second trimester, unspecified obesity type ([facility]) History of forceps delivery in prior , currently (HCC) with other poor obstetric history Liver hemangioma Hemangioma of intra-abdominal structures care following delivery ([facility]) Routine follow-up SAMAN (generalized anxiety disorder) Generalized anxiety disorder Acute deep vein thrombosis (DVT) of right upper extremity ([facility]) Rectovaginal fistula Digestive-genital tract fistula, female ABLA (acute blood loss anemia) care and examination ([facility])- Primary Routine follow-up Encounter for initial prescription of intrauterine contraceptive device (IUD) documented in this encounter [facility] note* Diagnosis Pre-op evaluation- Primary Preoperative examination, unspecified Acute deep vein thrombosis (DVT) of popliteal vein of right lower extremity ([facility]) Vapes nicotine containing substance SAMAN (generalized anxiety disorder) Generalized anxiety disorder Acute deep vein thrombosis (DVT) of right upper extremity, unspecified vein ([facility]) History of gastroesophageal reflux (GERD) Personal history of other diseases of digestive system Class 2 obesity without serious comorbidity with body mass index (BMI) of 36.0 to 36.9 in adult, unspecified obesity type History of gestational diabetes in prior , currently ([facility])- Primary with other poor obstetric history History of maternal fourth degree perineal laceration, currently ([facility]) with other poor obstetric history Acute deep vein thrombosis (DVT) of right upper extremity, unspecified vein ([facility]) Rectovaginal fistula Digestive-genital tract fistula, female Obesity affecting in second trimester, unspecified obesity type ([facility]) History of forceps delivery in prior , currently ([facility]) with other poor obstetric history Liver hemangioma Hemangioma of intra-abdominal structures care following delivery ([facility]) Routine follow-up SAMAN (generalized anxiety disorder) Generalized anxiety disorder Acute deep vein thrombosis (DVT) of right upper extremity ([facility]) Rectovaginal fistula Digestive-genital tract fistula, female ABLA (acute blood loss anemia) Encounter for contraceptive management, unspecified type- Primary documented in this encounter [facility] note* Diagnosis Pre-op evaluation- Primary Preoperative examination, unspecified Acute deep vein thrombosis (DVT) of popliteal vein of right lower extremity ([facility]) Vapes nicotine containing substance SAMAN (generalized anxiety disorder) Generalized anxiety disorder Acute deep vein thrombosis (DVT) of right upper extremity, unspecified vein ([facility]) History of gastroesophageal reflux (GERD) Personal history of other diseases of digestive system Class 2 obesity without serious comorbidity with body mass index (BMI) of 36.0 to 36.9 in adult, unspecified obesity type History of gestational diabetes in prior , currently (HCC)- Primary with other poor obstetric history History of maternal fourth degree perineal laceration, currently (HCC) with other poor obstetric history Acute deep vein thrombosis (DVT) of right upper extremity, unspecified vein (HCC) Rectovaginal fistula Digestive-genital tract fistula, female Obesity affecting in second trimester, unspecified obesity type (HCC) History of forceps delivery in prior , currently (HCC) with other poor obstetric history Liver hemangioma Hemangioma of intra-abdominal structures care following delivery ([facility]) Routine follow-up SAMAN (generalized anxiety disorder) Generalized anxiety disorder Acute deep vein thrombosis (DVT) of right upper extremity (HCC) Rectovaginal fistula Digestive-genital tract fistula, female ABLA (acute blood loss anemia) Superficial thrombophlebitis of right upper extremity- Primary [facility] Diagnosis Pre-op evaluation- Primary Preoperative examination, unspecified Acute deep vein thrombosis (DVT) of popliteal vein of right lower extremity ([facility]) Vapes nicotine containing substance SAMAN (generalized anxiety disorder) Generalized anxiety disorder Acute deep vein thrombosis (DVT) of right upper extremity, unspecified vein (HCC) History of gastroesophageal reflux (GERD) Personal history of other diseases of digestive system Class 2 obesity without serious comorbidity with body mass index (BMI) of 36.0 to 36.9 in adult, unspecified obesity type History of gestational diabetes in prior , currently (HCC)- Primary with other poor obstetric history History of maternal fourth degree perineal laceration, currently (HCC) with other poor obstetric history Acute deep vein thrombosis (DVT) of right upper extremity, unspecified vein (HCC) Rectovaginal fistula Digestive-genital tract fistula, female Obesity affecting in second trimester, unspecified obesity type (HCC) History of forceps delivery in prior , currently (HCC) with other poor obstetric history Liver hemangioma Hemangioma of intra-abdominal structures care following delivery ([facility]) Routine follow-up SAMAN (generalized anxiety disorder) Generalized anxiety disorder Acute deep vein thrombosis (DVT) of right upper extremity (HCC) Rectovaginal fistula Digestive-genital tract fistula, female ABLA (acute blood loss anemia) Screening for STD (sexually transmitted disease)- Primary Screening examination for venereal disease Dysuria documented in this encounter [facility] Author Christofer Nj [facility] May 18, 2023 10:30am Note Date/Time May 18, 2023 10: 30am [facility] Medical Records Department [address] [place] [address] H&P Exam - Surgical 05/18/23 1027 MR#: [id number] Acct: [id number] Name: LEELEE ZAMORA Rep #:[id number] : 1995 28 From: Christofer proctor MD PCP: Dr. Alfredo Barroso MD Status :REG ER Location: ED HPI - General HPI Narrative LEELEE ZAMORA, is a 28 F who presents with abdominal pain. Patient says the painwoke her up this morning at 4 AM. Patient states that the pain is in the middleof her abdomen and the right lower quadrant. Patient says that she does feel like she is nauseous but has not vomited. She is not passing any flatus and didnot have a bowel movement this morning but did have a bowel movement yesterday. Patient has had a history of ileostomy with reversal and ventral hernia repair all within the last 2 years. The patient was also recently on Macrobid for possible UTI versus kidney stone. She says she was having burning with urination and blood in her urine. [facility] Medical History ADHD (attention deficit hyperactivity disorder) Anxiety Chronic pain Post traumatic stress disorder (PTSD) Home Medications phentermine 37.5 mg tablet 37.5 mg PO DAILY 04/30/23 [History Last Taken 05/17/23] nitrofurantoin monohydrate/macrocrystals 100 mg capsule 100 mg PO Q12H 05/18/23 [History Last Taken 05/16/23] vit no.95-ferrous fumarate 28 mg-folic acid 800 mcg tablet ( Multivitamins) 1 tab PO DAILY 05/18/23 [History Last Taken 05/17/23] Allergy/AdvReac Type Severity Reaction Status Date / Time cat dander Allergy Hives Verified 04/30/23 09:26 house dust Allergy Hives Verified 04/30/23 09:26 peanut Allergy Swelling Verified 04/30/23 09:26 cranberry AdvReac Rash Verified 04/30/23 09:26 mold AdvReac Other Verified 04/30/23 09:26 morphine AdvReac Chest Verified 04/30/23 09:26 tightness Family History Aunt Cancer maternal aunt - uterine/cervical ca Surgical History Dehiscence of perineal wound Fourth degree perineal laceration History of gynecologic surgery Social History Smoking Status: Former smoker ROS Constitutional Constitutional: Denies anorexia or fatigue Eyes Eyes: Denies blurry vision ENT HEENT: Denies abnormal hearing Cardiovascular Cardiovascular: Denies chest pain Respiratory/Chest Respiratory/Chest: Denies cough or dyspnea Gastrointestinal Gastrointestinal: Reports abdominal pain and nausea; Denies constipation, diarrhea, dysphagia or vomiting Genitourinary Genitourinary: Denies change in urinary stream Musculoskeletal Musculoskeletal: Denies abnormal gait or back pain Integumentary Integumentary: Denies jaundice Neurologic Neurologic: Denies abnormal gait or dizziness Psychiatric Psychiatric: Reports depression Endocrine Endocrinology: Denies flushing Hematologic/Lymphatic Hematologic/Lymphatic: Denies easy bleeding Vital Signs Vital Signs Vital Signs: 05/18/23 07:07 05/18/23 10:07 Temperature 98 F Temperature Source Temporal Pulse Rate 81 71 Respiratory Rate 14 14 Blood Pressure 128/84 H 111/62 Blood Pressure Mean 98 78 Pulse Ox 99 98 Oxygen Delivery Method Room Air Room Air Weight Weight: 186 lb 15.232 oz Body Mass Index (BMI) 28.4 Physical Exam Const oriented x3 and no apparent distress Resp normal respiratory effort Cardio regular rate and regular rhythm GI soft to palpation Inspection: Negative for abdominal distention Palpation: tender RLQ and periumbilical Extremity normal to inspection Results Lab / Micro Data 05/18/23 07:45 05/18/23 07:45 Labs: Laboratory Results - last 24 hr 05/18/23 07:45: WBC 11.1 H, RBC 4.84, Hgb 13.7, Hct 44.0, MCV 90.9, MCH 28.3, MCHC 31.1 L, RDW Std Deviation 47.6 H, RDW Coeff of Wiliam 14.3, Plt Count 299, MPV8.7, Immature Gran % (Auto) 0.500, Neut % (Auto) 77.8 H, Lymph % (Auto) 14.8 L, [place] % (Auto) 6.0, Eos % (Auto) 0.5, Baso % (Auto) 0.4, Absolute Neuts (auto) 8.6 H, Absolute Lymphs (auto) 1.63, Nucleated RBC % 0, Sodium 139, Potassium 4.6, Chloride 107, Carbon Dioxide 30.0, Anion Gap 2 L, BUN 13, Creatinine 0.65, Estim Creat Clear Calc 129.98, Est GFR (MDRD) Af Amer 141, Est GFR (MDRD) Non-Af116, BUN/Creatinine Ratio 20.1 H, Glucose 102, Calcium 9.1, Total Bilirubin 1.20H, AST 7 L, ALT 24, Alkaline Phosphatase 66, Total Protein 7.4, Albumin 3.5, Globulin 3.9, Albumin/Globulin Ratio 0.9, Lipase 35, Serum , Qual NEGATIVE Radiology Impression Abdomen/Pelvis CT 05/18/23 07:37 IMPRESSION: Findings suggestive of early''s distal small bowel obstruction with air-fluid and dense material within the distal ileum. Prior anastomotic site is seen in the distal ileum. Moderate amount of fecal material is seen in the colon. 2.2 cm cyst in the right ovary. This has decreased in size as compared to prior study. Electronically Signed: Yaya Soto MD at 9:15 EDT , Assessment & Plan Assessment/Plan (1) SBO (small bowel obstruction): PLAN: Patient was awoken with abdominal pain and had a CT scan which showed a possible early small bowel obstruction. This appears to be at the area of her prior anastomosis. It appears that she has fecalized stool proximal to this. She does have a copious amount of stool in the colon indicating this is not likely a complete obstruction. The obstruction may be happening due to dehydration and the fecalization of the stool in the small bowel. I will admit her and started on IV fluids and observed for a day. If she is still having pain and no bowel function tomorrow we will order a small bowel follow-through. Patient was also recently seen for suicidal ideation and reports that she has not taken her antidepressants that were prescribed. Patient is in agreement with the plan. Christofer Nj MD Pager: [facility] [address] [place] [address] Outpatient [place], [address] [place] [address] Office: 05/18/23 1030 <Electronically signed by Christofer Nj MD> Cosigner Signature (if applicable): CC: Dr. Christofer Nj MD; Dr. Alfredo Barroso MD~ Signed [facility] Work Phone: History of Present illness Narrative* 27 yo s/p perineoplasty and rectocele repair. She is doing well, had significant pain, but doing okwith pain meds. Not taking them anymore. * Still having soft BM's. Has had to lift her daughter, needs more help at home. [id number] Work Phone: Hospital course Narrative No data available for this section [facility] Hospital Discharge instructions* Instructions* Danii Thomason DO - 05/17/2021 Please follow your post operative care instructions given to you by your Optic Fib[employer] Drawer Oncologist's office at your pre operative visit. Please call the office with questions or concerns and be sure to follow up at your scheduled post operative visit. documented in this [facility] Work Phone: Hospital Discharge instructions* Instructions* Shelley Escobar MD - 06/22/2021 You were seen in the emergency department today for pelvic pain. You received pain medications, antinausea medications. We have given you a prescription for pain and nausea medications for home. You may use these as well as ibuprofen to control your pain. Please continue the antibiotics you are currently taking. It is possible that your problem can change or progress. If you develop new or worsening symptoms including uncontrollable bleeding, loss of consciousness, inability to drink, or anything that concerns you, please return to the emergency department to be re-evaluated. Otherwise, please keep your appointment with Dr. Ramirez this week. * Attachments The following attachments cannot be sent through Care Everywhere. * Pelvic Pain (Chilean) documented in this [facility] Work Phone: Hospital Discharge instructions No data available for this section [facility] Hospital Discharge instructions Additional Instructions Plenty of fluids and rest. Your labs were unremarkable. Your blood counts were normal. Urine showed no signs of infection. You are not . Follow-up with the [facility] at the [facility] for further gynecology evaluation.[facility] Work Phone: Hospital Discharge instructions Additional Instructions Please follow-up with your MATERIALS ANALYST as we discussed. Until you can have confirmed placement of your IUD by your MATERIALS ANALYST please either practice abstinence or use a secondary control method such as condoms.[facility] Work Phone: Hospital Discharge instructions Additional Instructions Antibiotics as directed. Return with fever, new or worsening symptoms.[facility] Work Phone: Instructions* Instruction Description Start Date CompletedPatient advised to follow-up with Primary Care Physician for BMI management. [facility] Work Phone: Progress note No data available for this section [facility] Reason for referral (narrative)* Outpatient Procedure (Routine) - Pending Review Specialty Diagnoses / Procedures Referred By Harpreet galindo Referred To Contact [facility] Diagnoses Pelvic floor dysfunction Rectal vaginal fistula Procedures [facility] ANORECTAL MANOMETRY ANORECTAL MANOMETRY Sandhya Carolina PA-C [address] [place] [address] [facility] [address] [place] [address] Referral ID Status Reason Start Date Expiration Date Visits Requested Visits Authorized [id number] Pending Review Auto-Generat ed Referral 3 08/05/2024 1 1 [facility] for referral (narrative)* Diagnostic Procedure Only (Routine) - Pending Review Specialty Diagnoses / Procedures Referred By Harpreet t Referred To Contact [facility] Diagnoses Menorrhagia with regular cycle Hirsutism Acne, unspecified acne type Procedures PELVIC US WHI US PELVIC NONOBSTETRIC REAL-TIME IMAGE COMPLETE Cooper Jordan PA-C [address] [place] [address] [facility] [address] [place] [address] Referral ID Status Reason Start Date Expiration Date Visits Requested Visits Authorized [id number] Pending Review Auto-Generat ed Referral 11/27/2023 11/26/2024 1 1 [facility] for referral (narrative)* Diagnostic Procedure Only (Routine) - Closed Specialty Diagnoses / Procedures Referred By Harpreet t Referred To Contact BR IMAGING Diagnoses Discharge from both nipples Procedures US BREAST LTD LEFT US BREAST UNI REAL TIME WITH IMAGE LIMITED Buck Szymanski APRN.CNP [address] [place] [address] [facility] [address] [place] [address] Referral ID Status Reason Start Date Expiration Date V isits Requested Visits Authorized [id number] Closed Auto-Generate d Referral 11/27/2023 10/11/2024 1 1 * Diagnostic Procedure Only (Routine) - Closed Specialty Diagnoses / Procedures Referred By Raeac t Referred To Contact BR [facility]AGING Diagnoses Discharge from both nipples Procedures US BREAST LTD RIGHT US BREAST UNI REAL TIME WITH IMAGE LIMITED Buck zSymanski APRN.CNP [address] [place] [address] [facility] [address] [place] [address] Referral ID Status Reason Start Date Expiration Date V isits Requested Visits Authorized [id number] Closed Auto-Generate d Referral 11/27/2023 10/11/2024 1 1 [facility] for referral (narrative)* Diagnostic Procedure Only (Routine) - New Request Specialty Diagnoses / Procedures Referred By Contac t Referred To Contact [facility] Diagnoses Menorrhagia with irregular cycle Procedures PELVIC US WHI US PELVIC NONOBSTETRIC REAL-TIME IMAGE COMPLETE Darryl Ramirez APRN.HOME VISITOR [employer] START [address] [place] [address] [facility] [address] [place] [address] Referral ID Status Reason Start Date Expiration Date Visits Requested Visits Authorized [id number] New Request Auto-Generat ed Referral 05/02/2024 05/02/2025 1 1 [facility] for referral (narrative)* Diagnostic Procedure Only (Routine) - Closed Specialty Diagnoses / Procedures Referred By Contac t Referred To Contact BR IMAGING Diagnoses Discharge from both nipples Procedures US BREAST LTD LEFT US BREAST UNI REAL TIME WITH IMAGE LIMITED Buck Szymanski APRN.CNP [address] [place] [address] [facility] [address] [place] [address] Referral ID Status Reason Start Date Expiration Date V isits Requested Visits Authorized [id number] Closed Auto-Generate d Referral 11/27/2023 10/11/2024 1 1 * Diagnostic Procedure Only (Routine) - Closed Specialty Diagnoses / Procedures Referred By Contac t Referred To Contact BR IMAGING Diagnoses Discharge from both nipples Procedures US BREAST LTD RIGHT US BREAST UNI REAL TIME WITH IMAGE LIMITED Buck Szymanski APRN.CNP [address] [place] [address] [facility] [address] [place] [address] Referral ID Status Reason Start Date Expiration Date V isits Requested Visits Authorized [id number] Closed Auto-Generate d Referral 11/27/2023 10/11/2024 1 1 [facility] for referral (narrative)* Diagnostic Procedure Only (Urgent) - Closed Specialty Diagnoses / Procedures Referred By Contac t Referred To Contact XR IMAGING Diagnoses Acute pain of left shoulder Procedures XR SHOULDER GENERAL 3V OR MORE AP/TRUE AP/OTHER LEFT RADEX SHOULDER COMPLETE MINIMUM 2 VIEWS Roverto Ag APRN.HOME VISITOR [employer] [address] [place] [address] [place] [address] Referral ID Status Reason Start Date Expiration Date V isits Requested Visits Authorized [id number] Closed Auto-Generate d Referral 02/12/2023 03/13/2024 1 1 [facility] for referral (narrative)* Outpatient Procedure (Routine) - Authorized Specialty Diagnoses / Procedures Referred By Contac t Referred [facility] Diagnoses History of syncope Procedures ECG COMPLETE ECG ROUTINE ECG W/LEAST 12 LDS W/I&R Guille Trivedi MD [address] [place] [address] [facility] [address] [address] Referral ID Status Reason Start Date Expiration Date Visits Requested Visits Authorized [id number] Authorized Auto-Generat ed Referral 07/13/2024 07/13/2025 1 1 [facility] for referral (narrative)* Diagnostic Procedure Only (Routine) - Authorized Specialty Diagnoses / Procedures Referred By Contac t Referred To Contact [facility] Diagnoses 7 weeks gestation of Procedures NUCHAL TRANSLUCENCY WHI US NUCHAL TRANSLUCENCY 1ST GESTATION Jammie Funes APRN.HOME VISITOR [employer] START [address] [place] [address] [address] Referral ID Status Reason Start Date Expiration Date Visits Requested Visits Authorized [id number] Authorized Auto-Generat ed Referral 08/18/2024 08/18/2025 1 1 [facility] for referral (narrative)* Diagnostic Procedure Only (Routine) - Authorized Specialty Diagnoses / Procedures Referred By Contac t Referred To Contact [facility] Diagnoses Supervision of high risk in second trimester Obesity affecting in second trimester, unspecified obesity type History of maternal fourth degree perineal laceration, currently Procedures OBSTETRIC ULTRASOUND WHI US PREG UTERUS AFTER 1ST TRIMEST GESTATION Tahmina Dumont MD [address] [place] [address] [address] Referral ID Status Reason Start Date Expiration Date Visits Requested Visits Authorized [id number] Authorized Auto-Generat ed Referral 10/20/2024 10/20/2025 1 1 * Consult, Test, Treat (Routine) - Authorized Specialty Diagnoses / Procedures Referred By Contac t Referred To Contact Diagnoses History of maternal fourth degree perineal laceration, currently Procedures CONSULT TO MATERNAL MEDI OFFICE/OUTPATIENT NEW HIGH MDM 60 MINUTES Tahmina Dumont MD [address] [place] [address] Referral ID Status Reason Start Date Expiration Date Visits Requested Visits Authorized [id number] Authorized PCP Requested Referral Auto-Generate d Referral 10/20/2024 10/20/2025 1 1 [facility] for referral (narrative)* Diagnostic Procedure Only (Routine) - Authorized Specialty Diagnoses / Procedures Referred By Contac t Referred To Contact [facility] Diagnoses Obesity affecting in second trimester, unspecified obesity type History of maternal fourth degree perineal laceration, currently Procedures OBSTETRIC ULTRASOUND WHI US PREG UTERUS AFTER 1ST TRIMEST GESTATION Tahmina Dumont MD [address] [place] [address] [address] Referral ID Status Reason Start Date Expiration Date Visits Requested Visits Authorized [id number] Authorized Auto-Generat ed Referral 11/15/2024 11/15/2025 6 1 [facility] for referral (narrative)No reason for referral information [facility] Work Phone: Reason for visit Narrative* Diagnostic Procedure Only (Routine) - Closed Specialty Diagnoses / Procedures Referred By Contac t Referred To Contact US IMAGING Diagnoses Complication of intrauterine device (IUD), unspecified complication, initial encounter (HCC) Procedures US FEMALE PELVIS TRANSABD LTD US PELVIC NONOBSTETRIC IMAGE DCMTN LIMITED/F/U Humberto Schultz MD [address] [address] [place] [address] Referral ID Status Reason Start Date Expiration Date V isits Requested Visits Authorized [id number] Closed Auto-Generate d Referral 08/21/2023 10/11/2023 1 1 [facility] for visit Narrative* Diagnostic Procedure Only (Routine) - Closed Specialty Diagnoses / Procedures Referred By Contac t Referred To Contact [facility] Diagnoses Menorrhagia with irregular cycle Procedures PELVIC US WHI US PELVIC NONOBSTETRIC REAL-TIME IMAGE COMPLETE Darryl Ramirez, ASAEL.HOME VISITOR [employer] START [address] [place] [address] [address] Referral ID Status Reason Start Date Expiration Date V isits Requested Visits Authorized [id number] Closed Auto-Generate d Referral 05/02/2024 05/02/2025 1 1 [facility] for visit Narrative* Diagnostic Procedure Only (Urgent) - Closed Specialty Diagnoses / Procedures Referred By Contac t Referred To Contact XR IMAGING Diagnoses Acute pain of left shoulder Procedures XR SHOULDER GENERAL 3V OR MORE AP/TRUE AP/OTHER LEFT RADEX SHOULDER COMPLETE MINIMUM 2 VIEWS Roverto Ag, MOBILITY ENGINEER.HOME VISITOR [employer] [address] [place] [address] [place] [address] Referral ID Status Reason Start Date Expiration Date V isits Requested Visits Authorized [id number] Closed Auto-Generate d Referral 02/12/2023 03/13/2024 1 1 [facility] for visit Narrative* Consult, Test, Treat (Routine) - Closed Specialty Diagnoses / Procedures Referred By Contac t Referred To Contact Diagnoses Diet controlled gestational diabetes mellitus (GDM) in third trimester ([facility]) Procedures CONSULT TO DIABETES EDUCATION DSME MEDICAL NUTRITION ASSMT&IVNTJ INDIV EACH 15 MS MEDICAL NUTRITION ASSMT&IVNTJ INDIV EACH 15 MS MEDICAL NUTRITION ASSMT&IVNTJ INDIV EACH 15 MS MEDICAL NUTRITION ASSMT&IVNTJ INDIV EACH 15 MS Stephani Aaron MOBILITY ENGINEER.HOME VISITOR [employer] [address] [place] [address] Phone: tel: fax: Referral ID Status Reason Start Date Expiration Date V isits Requested Visits Authorized [id number] Closed PCP Requested Referral 12/30/2024 12/30/2025 1 1 [facility] for visit Narrative* Consult, Test, Treat (Routine) - Closed Specialty Diagnoses / Procedures Referred By Contac t Referred To Contact Diagnoses Diet controlled gestational diabetes mellitus (GDM) in third trimester ([facility]) History of maternal fourth degree perineal laceration, currently ([facility]) Supervision of high risk in third trimester ([facility]) Obesity affecting in second trimester, unspecified obesity type ([facility]) Procedures CONSULT TO MATERNAL MEDI OFFICE/OUTPATIENT [facility] 60 MINUTES Britney Griffin MD [address] [place] [address] Phone: tel: fax: Referral ID Status Reason Start Date Expiration Date V isits Requested Visits Authorized [id number] Closed PCP Requested Referral Auto-Generated Referral 02/06/2025 02/06/2026 1 1 [facility] Advance Directives No Advanced Directives Records FoundLatest Code Status on File Code Status Date Activated Date Inactivated Comments Full Code 05/16/2021 12:10 PM Full Code 05/16/2021 7:12 AM 05/16/2021 12:07 PM Latest Code Status on File Code Status Date Activated Date Inactivated Comments Full Code 05/16/2021 12:10 PM 05/17/2021 2:58 PM Advance Directive Response Recorded Date/ Time Advance Directives No November 09, 2016 9:37pm Living Will No April 30, 2023 9:46am Power of Director Of Operations For Therapy No April 30 9:46am Advance Directive Response Recorded Date/ Time Advance Directives No November 09, 2016 9:37pm Living Will No May 18, 2023 7:20am Power of Director Of Operations For Therapy No May 18 7:20am Advance Directive Response Recorded Date/ Time Advance Directives No November 09, 2016 9:37pm Living Will No July 22 9:16pm Power of Director Of Operations For Therapy No July 22, 2023 9:16pm Advance Directive Response Recorded Date/ Time Advance Directives No November 09, 2016 8:37pm Living Will No August 20 8:03pm Power of Director Of Operations For Therapy No August 20, 2023 8:03pm Advance Directive Response Recorded Date/ Time Advance Directives No November 09, 2016 8:37pm Living Will No November 18 5:27pm Power of Director Of Operations For Therapy No November 18, 2023 5:27pm Advance Directive Response Recorded Date/ Time Advance Directives No November 09, 2016 8:37pm Living Will No November 24, 2 024 11:03am Power of Director Of Operations For Therapy No November 24, 2023 11:03am Advance Directive Response Recorded Date/ Time Living Will No March 04, 2024 8 :45pm Do you have a Healthcare Power of Director Of Operations For Therapy? No March 04, 2024 8:45pm Living Will No October 12 10:20am Do you have a Healthcare Power of Director Of Operations For Therapy? No October 12, 2024 10:20am Living Will No October 25 10:51pm Do you have a Healthcare Power of Director Of Operations For Therapy? No October 25, 2024 10:51pm Living Will No October 30 5:18am Do you have a Healthcare Power of Director Of Operations For Therapy? No October 30, 2024 5:18am Advance Directives No November 09, 2016 9:37pm Summary Purpose Family History No Family History Records Found Relationship Condition Age at Onset Recorded Date/T olivia aunt Malignant neoplasm Unknown Relationship Condition Age at Onset Recorded Date/T olivia aunt Malignant neoplasm Unknown mother Cardiac disease Unknown father Diabetes mellitus Unknown Hypertension Unknown grandmother Kidney disorder Unknown Cerebrovascular accident (CVA) Unknown Myocardial infarction Unknown Coronary artery disease Unknown Diabetes mellitus Unknown Chief Complaint Chief Complaint Description Start Date right foot pain Preliminary chief co mplaint data, not yet signed by the author as of Reason for Referral Specialty Diagnoses / Procedures Referred By Harpreet galindo Referred To Contact Cardiology Diagnoses History of syncope Procedures CONSULT TO CARDIOLOGY OFFICE/OUTPATIENT [facility] [place] [address] [place] [address] Referral ID Status Reason Start Date Expiration Date Visits Requested Visits Authorized [id number] Authorized PCP Requested Referral 07/13/2024 07/12/2025 1 1 Specialty Diagnoses / Procedures Referred By Harpreet galindo Referred To Contact MR IMAGING Diagnoses Discharge from both nipples Fibrocystic breast changes of both breasts Family history of breast cancer Procedures MRI BREAST WO/W IVCON BILATERAL MRI BREAST WITHOUT&WITH CONTRAST W/CAD BILATERAL Buck Szymanski APRN.HOME VISITOR [employer] START [address] [place] [id number] Mr [facility] [place] [address] Referral ID Status Reason Start Date Expiration Date Visits Requested Visits Authorized [id number] New Request Auto-Generat ed Referral 06/28/2024 07/28/2025 1 1 Specialty Diagnoses / Procedures Referred By Harpreet galindo Referred To Contact Hematology Diagnoses History of blood clots Procedures CONSULT TO HEMATOLOGY OFFICE/OUTPATIENT NEW [facility] 60 MINUTES Darlin Ling, MOBILITY ENGINEER.HOME VISITOR [employer] START [address] [place] [address] Referral ID Status Reason Start Date Expiration Date Visits Requested Visits Authorized [id number] Authorized PCP Requested Referral 06/27/2024 06/27/2025 1 1 Specialty Diagnoses / Procedures Referred By Contac t Referred To Contact [facility] Diagnoses Excess skin Procedures ECG COMPLETE ECG ROUTINE ECG W/LEAST 12 LDS W/I&R Darlin Ling, ASAEL.HOME VISITOR [employer] START [address] [place] [address] [facility] Irene [address] [place] [address] Referral ID Status Reason Start Date Expiration Date Visits Requested Visits Authorized [id number] New Request Auto-Generat ed Referral 06/27/2024 06/27/2025 1 1 Specialty Diagnoses / Procedures Referred By Contac t Referred To Contact Diagnoses Excess skin Procedures REFER TO [facility] PREOPERATIVE OPTIMIZATION OFFICE/OUTPATIENT [facility] MDM 60 MINUTES Darlin Ling, ASAEL.HOME VISITOR [employer] START [address] [place] [address] Referral ID Status Reason Start Date Expiration Date V isits Requested Visits Authorized [id number] Authorized 06/27/2024 09/25/2024 1 1 Specialty Diagnoses / Procedures Referred By Contac t Referred To Contact Diagnoses ADHD (attention deficit hyperactivity disorder), predominantly hyperactive impulsive type Cooper Gastelum, ASALE.HOME VISITOR [employer] START [address] [place] [address] Referral ID Status Reason Start Date Expiration Date V isits Requested Visits Authorized [id number] Pending Review 1 1 Specialty Diagnoses / Procedures Referred By Contac t Referred To Contact General Surgery Diagnoses Calculus of gallbladder without cholecystitis without obstruction RUQ pain Procedures CONSULT TO GENERAL SURGERY OFFICE/OUTPATIENT [facility] 60-74 MINUTES Cooper Gastelum, MOBILITY ENGINEER.HOME VISITOR [employer] START [address] [place] [address] Referral ID Status Reason Start Date Expiration Date Visits Requested Visits Authorized [id number] Authorized PCP Requested Referral 09/17/2023 09/16/2024 1 1 Specialty Diagnoses / Procedures Referred By Contac t Referred To Contact MR IMAGING Diagnoses Liver lesion Procedures MRI LIVER WO/W IVCON MRI ABDOMEN W/O & W/CONTRAST MATERIAL Roverto Diane MD [address] [place] [address] Mr Imaging [facility] Referral ID Status Reason Start Date Expiration Date Visits Requested Visits Authorized [id number] Additional Clinical Info Needed Auto-Generat ed Referral 09/22/2024 1 1 Specialty Diagnoses / Procedures Referred By Contac t Referred To Contact CT IMAGING Diagnoses Complete intestinal obstruction, unspecified cause (HCC) Procedures CT ABD/PEL W IVCON CT ABD & PELVIS W/CONTRAST Mireya Shah DO [address] [place] [address] Ct Imaging [place] [address] Referral ID Status Reason Start Date Expiration Date V isits Requested Visits Authorized [id number] Closed Auto-Generate d Referral 08/05/2023 09/03/2023 1 1 Specialty Diagnoses / Procedures Referred By Contac t Referred To Contact Orthopedics Diagnoses Acute pain of left shoulder Procedures CONSULT TO ORTHOPAEDICS OFFICE/OUTPATIENT [facility] 60-74 MINUTES Roverto Ag, ASAEL.HOME VISITOR [employer] START [address] [place] [address] Referral ID Status Reason Start Date Expiration Date Visits Requested Visits Authorized [id number] Authorized PCP Requested Referral 02/12/2023 02/12/2024 1 1 Specialty Diagnoses / Procedures Referred By Contac t Referred To Contact XR IMAGING Diagnoses Acute pain of left shoulder Procedures XR SHOULDER GENERAL 3V OR MORE AP/TRUE AP/OTHER LEFT RADEX SHOULDER COMPLETE MINIMUM 2 VIEWS Roverto Ag, ASAEL.HOME VISITOR HOME [employer] START [address] [place] [address] Xr Imaging Referral ID Status Reason Start Date Expiration Date V isits Requested Visits Authorized [id number] Closed Auto-Generate d Referral 02/12/2023 03/13/2024 1 1 Specialty Diagnoses / Procedures Referred By Contac t Referred To Contact CT IMAGING Diagnoses Hernia of abdominal wall Procedures CT ABDOMEN W IVCON CT ABDOMEN W/CONTRAST Shilpa Winters MD [address] [place] [address] Ct Imaging Referral ID Status Reason Start Date Expiration Date Visits Requested Visits Authorized [id number] Authorized Auto-Generat ed Referral 12/02/2022 12/31/2022 1 1 Specialty Diagnoses / Procedures Referred By Contac t Referred To Contact Ophthalmology Diagnoses Blurry vision, right eye Procedures CONSULT TO OPHTHALMOLOGY OFFICE/OUTPATIENT [facility] 60-74 MINUTES Pj James MD [address] [place] [address] Referral ID Status Reason Start Date Expiration Date Visits Requested Visits Authorized [id number] Authorized PCP Requested Referral 12/05/2022 12/05/2023 1 1 Specialty Diagnoses / Procedures Referred By Contac t Referred To Contact General Surgery Diagnoses Hernia of abdominal wall Procedures CONSULT TO GENERAL SURGERY OFFICE/OUTPATIENT [facility] 60-74 MINUTES Cooper Gastelum APRN.HOME VISITOR [employer] START [address] [place] [address] Rivera Pappas MD [address] [place] [address] Referral ID Status Reason Start Date Expiration Date Visits Requested Visits Authorized [id number] Authorized PCP Requested Referral 12/01/2022 12/01/2023 1 1 Specialty Diagnoses / Procedures Referred By Contac t Referred To Contact Nutrition Diagnoses Class 3 severe obesity without serious comorbidity with body mass index (BMI) of 45.0 to 49.9 in adult, unspecified obesity type (HCC) Procedures CONSULT TO NUTRITION THERAPY OFFICE/OUTPATIENT [facility] 60-74 MINUTES Cooper Gastelum APRN.HOME VISITOR HOME [employer] START [address] [place] [id number] Referral ID Status Reason Start Date Expiration Date Visits Requested Visits Authorized [id number] Authorized PCP Requested Referral 2 09/09/2023 1 1 Specialty Diagnoses / Procedures Referred By Contac t Referred To Contact Diagnoses Weight gain Procedures CONSULT [facility] OFFICE/OUTPATIENT [facility] 60-74 MINUTES Leelee Tobar APRN.HOME VISITOR HOME [employer] START [address] [place] [address] Referral ID Status Reason Start Date Expiration Date Visits Requested Visits Authorized [id number] Authorized PCP Requested Referral 05/22/2022 05/22/2023 1 1 Medications Administered Section Active Administered Medications - up to 3 most recent administrations Medication Order MAR Action Action Date Dose Rate Site PHENYLephrine 2.5 % 1 Drop (AK-DILATE, GORDO-SYNEPHRINE) 1 Drop, BOTH EYES, DIRECTED, Starting on Thu12/17/22 at 1400, Until Thu12/18/22 at 0159, Administer for dilation PROTECT FROM LIGHT Given 12/17/2022 2:00 PM EST 1 Drop proparacaine 0.5 % 1 Drop (ALCAINE) 1 Drop, BOTH EYES, DIRECTED, Starting on Thu12/17/22 at 1400, Until Thu12/18/22 at 0159, Administer for pneumo tonometry, tonopen tonometry, or pachymetry. In the event of a proparacaine shortage, administer tetracaine 0.5% ophthalmic drops 1 drop in the left eye as directed for pneumo tonometry, tonopen tonometry, or pachymetry Given 12/17/2022 2:00 PM EST 1 Drop tropicamide 1 % 1 Drop (MYDRIACYL) 1 Drop, BOTH EYES, DIRECTED, Starting on Thu12/17/22 at 1400, Until Thu12/18/22 at 0159, Administer for dilation Given 12/17/2022 2:00 PM EST 1 Drop Chief Complaint and Reason for Visit Chief Complaint mental health Chief Complaint mental health abd abd Reason for Visit SBO (small bowel obs truction) Chief Complaint mental health SMALL BOWEL OBSTRUCTION abd SMALL BOWEL OBSTRUCTION 1wk [facility] 8 f/u bowel obstruction general Reason for Visit Abdominal pain Nausea Small bowel obstruction Chief Complaint mental health SMALL BOWEL OBSTRUCTION abd SMALL BOWEL OBSTRUCTION 1wk [facility] 88 f/u bowel obstruction general IUD check Reason for Visit Abdominal pain Nausea Small bowel obstruction Chief Complaint general IUD check HTN Chief Complaint IUD check HTN abd pain, urinary Chief Complaint Admit Date DIZZINESS/LOW BP ([place]) September 282023 2:39pm DENTAL October 12, 2024 8: 53am FALL October 25, 2024 9 :06pm n/v/d October 30, 2024 4 :18am NST January 05, 2025 10: 07am Reason for Visit Admit Date Dizziness September 28, 2024 2:39pm Chief Complaint Admit Date DIZZINESS/LOW BP ([place]) September 282023 2:39pm DENTAL October 12, 2024 8: 53am FALL October 25, 2024 9 :06pm n/v/d October 30, 2024 4 :18am NST January 05, 2025 10: 07am R/O PRE TERM January 09, 2025 12: 15pm Reason for Visit Admit Date Dizziness September 28, 2024 2:39pm 27 weeks gestation of January 052024 10:07am contractions January 05, 2025 10 :07am Additional Source Comments Ordered Prescriptions (unrec ognized section and content) Prescription Sig Dispensed Refills Start Date End Da te oxyCODONE (ROXICODONE) 5 MG immediate release tabletIndications:Rectov aginal fistula Take 1 tablet by mouth every 4 hours as needed for Pain for up to 7 days. 15 tablet 0 05/18/2021 05/25/2021 polyethylene glycol (GLYCOLAX) 17 g packet Take 17 g by mouth daily 527 g 0 05/18/2021 06/17/2021 docusate sodium (COLACE, DULCOLAX) 100 MG CAPS Take 100 mg by mouth 2 times daily 60 capsule 0 05/17/2021 06/16/2021 ibuprofen (ADVIL;MOTRIN) 600 MG tablet Take 1 tablet by mouth every 6 hours as needed for Pain 120 tablet 0 05/17/2021 oxyCODONE (ROXICODONE) 5 MG immediate release tabletIndications:Rectov aginal fistula Take 1 tablet by mouth every 4 hours as needed for Pain for up to 7 days. 15 tablet 0 05/18/2021 05/17/2021 oxyCODONE (ROXICODONE) 5 MG immediate release tabletIndications:Rectov aginal fistula Take 1 tablet by mouth every 4 hours as needed for Pain for up to 7 days. 15 tablet 0 05/17/2021 05/17/2021 Prescription Sig Dispensed Refills Start Date End Da te ondansetron (ZOFRAN) 4 MG tablet Take 1 tablet by mouth 3 times daily as needed for Nausea or Vomiting 15 tablet 0 06/22/2021 oxyCODONE-acetaminophen (PERCOCET) 5-325 MG per tabletIndications:Perine al pain Take 1 tablet by mouth every 8 hours as needed for Pain for up to 2 days. Intended supply: 3 days. Take lowest dose possible to manage pain 6 tablet 0 06/22/2021 06/24/2021 Scheduled Active and Recently Administ ered Medications (unrecognized section and content) Medication Order 05/15/2021 05/16/2021 05/17/2021 acetaminophen (TYLENOL) tablet 1,000 mg (COMPLETED) 1,000 mg, Oral, ONCE, On Ana 05/16/21 at 0745, For 1 dose, Maximum dose of acetaminophen is 4000 mg from all sources in 24 hours. Do not administer if patient has taken tylenol <4 hours earlier. Do not give if contraindicated ie. patient has active liver disease or cirrhosis., Pre-op (day of surgery) 0736 (Given - Provider: Radha Alberto RN) acetaminophen (TYLENOL) tablet 650 mg 650 mg, Oral, EVERY 6 HOURS, First dose on Ana 05/16/21 at 1230, Maximum dose of acetaminophen is 4000 mg from all sources in 24 hours., Post-op 1218 (Not Given - Provider: Marietta Jarquin RN - Reason: Patient/family refused)1839 (Given - Provider: Marietta Jarquin RN)2358 (Given - Provider: Marifer Caicedo, TERRY) 0519 (Given - Provider: Marifer Caicedo RN)1230 (Due)1830 (Due) cefOXitin (MEFOXIN) 2000 mg in dextrose 5% 50 mL (mini-bag) (COMPLETED) 2,000 mg, Intravenous, YACHT RIGGER TO O.R., 1 dose, On Ana 05/16/21 at 0730, scallop shucker to OR, Pre-op (day of surgery) 0750 (Given by Other Clinician - Provider: Ana Maria Mendez RN - Comment: Given in OR) cefOXitin (MEFOXIN) 2000 mg in dextrose 5% 50 mL (mini-bag) (COMPLETED) 2,000 mg, Intravenous, EVERY 8 HOURS, 2 doses, First dose on Ana 05/16/21 at 1600, Last dose on Thu05/17/21 at 0000, Post-op 1653 (New Bag - Provider: Marietta Jarquin RN)1723 (Stopped - Provider: Marietta Jarquin RN)2358 (New Bag - Provider: Marifer Caicedo, RN) 0054 (Stopped - Provider: Marifer Caicedo, RN) docusate sodium (COLACE) capsule 100 mg 100 mg, Oral, 2 TIMES DAILY, First dose on Ana 05/16/21 at 1015, Do not crush or break. 1227 (Given - Provider: Marietta Jarquin RN)2038 (Given - Provider: Marifer Caicedo RN) 0815 (Given - Provider: Helene Schwartz, RN)2100 (Due) famotidine (PEPCID) injection 20 mg (COMPLETED) 20 mg, Intravenous, ONCE, On Ana 05/16/21 at 0745, For 1 dose, Pre-op (day of surgery) 0736 (Given - Provider: Radha Alberto RN) polyethylene glycol (GLYCOLAX) packet 17 g 17 g, Oral, DAILY, First dose on Ana 05/16/21 at 1015 1227 (Given - Provider: Marietta Jarquin RN) 0815 (Given - Provider: Helene Schwartz, TERRY) sodium chloride flush 0.9 % injection 5-40 mL 5-40 mL, Intravenous, EVERY 12 HOURS SCHEDULED (2 times per day), First dose on Ana 05/16/21 at 2100, For Line Patency: Peripheral IV = 5 mL; Midline or Central Line = 10 mL/lumen. If following IV push medication, administer flush at same rate as the IV push. Flush volume is determined by type of infusion therapy being given. For non-viscous solutions use: Peripheral IV = 5 mL Midline or Central Line = 10 mL/lumen For viscous solutions (i.e. blood components, parenteral nutrition, contrast media, or after obtaining blood sample) use: Peripheral IV = 10 mL Midline or Central Line = 20 mL/lumen, Post-op 2040 (Not Given - Provider: Marifer Caicedo RN - Reason: IV Fluid Infusing) 0816 (Not Given - Provider: Helene Schwartz, TERRY - Reason: Contraindicated)2100 (Due) Continuous Medication Order 05/15/2021 05/16/2021 05/17/2021 0.9 % sodium chloride infusion Intravenous, at 100 mL/hr, CONTINUOUS, Starting on Ana 05/16/21 at 1015, For 6 hours 1228 (New Bag - Provider: Marietta Jarquin RN) lactated ringers infusion (CANCELED) Intravenous, at 50 mL/hr, CONTINUOUS, Starting on Ana 05/16/21 at 0730, Upon admission to sameday - please start iv if patient does not have iv access. Use 500ml NS for patients on dialysis., Pre-op (day of surgery) 0741 (New Bag - Provider: Burt RN) PRN Medication Order 05/15/2021 05/16/2021 05/17/2021 0.9 % sodium chloride infusion 25 mL, Intravenous, at 100 mL/hr, PRN, If patient receiving piggyback infusions without ordered maintenance IV fluids or with frequent/long duration piggyback infusions, Starting on Ana 05/16/21 at 1208, Administer at the same rate as the piggyback being infused., Post-op fentaNYL (SUBLIMAZE) injection 50 mcg (CANCELED) 50 mcg, Intravenous, EVERY 5 MIN PRN, Pain Severe (7-10), Starting on Ana 05/16/21 at 0717, For 3 doses, Phase I or Phase II- Initial therapy for severe pain (7-10). Restricted to a 50 minute time frame starting when the patient can verbally state their pain score. If after 2 doses the pain score does not decrease by more than one point, then go to secondary medication. If secondary medications are utilized, do not return to initial therapy medications.Sameday and, PACU only 0956 (Given - Provider: Ana Maria Mendez RN)1004 (Given - Provider: Ana Maria Mendez, TERRY) HYDROmorphone (DILAUDID) injection 0.5 mg (CANCELED) 0.5 mg, Intravenous, EVERY 5 MIN PRN, Pain Severe (7-10), Starting on Ana 05/16/21 at 0717, For 4 doses, Phase I - Secondary therapy to be used after initial therapy medication doses are ineffective (pain score does not decrease by more than 1 point). If secondary medications are utilized, do not return to initial therapy medications., PACU only 1028 (Given - Provider: Ana Maria Mendez RN)1058 (Given - Provider: Hamida Mercer, TERRY) ibuprofen (ADVIL;MOTRIN) tablet 600 mg 600 mg, Oral, EVERY 6 HOURS PRN, Pain Mild (1-3), Starting on Ana 05/16/21 at 0945, Do not crush or chew. 2358 (Given - Provider: Marifer Caicedo RN) 0821 (Given - Provider: Helene Schwartz, RN) lansinoh lanolin ointment Topical, PRN, Dry Skin, Starting on Ana 05/16/21 at 0946 LORazepam (ATIVAN) injection 0.5 mg (CANCELED) 0.5 mg, Intravenous, EVERY 10 MIN PRN, Anxiety, Starting on Ana 05/16/21 at 1041, For 2 doses, PACU only 1047 (Given - Provider: Ana Maria Mendez RN) ondansetron (ZOFRAN) injection 4 mg(Linked Group 1) 4 mg, Intravenous, EVERY 6 HOURS PRN, Nausea, Vomiting, Starting on Ana 05/16/21 at 1208, Administer if oral route cannot be used., Post-op ondansetron (ZOFRAN-ODT) disintegrating tablet 4 mg(Linked Group 1) 4 mg, Oral, EVERY 8 HOURS PRN, Nausea, Vomiting, Starting on Ana 05/16/21 at 1208, Post-op oxyCODONE (ROXICODONE) immediate release tablet 10 mg(Linked Group 2) 10 mg, Oral, EVERY 4 HOURS PRN, Pain Severe (7-10), Starting on Ana 05/16/21 at 1208, Post-op 1656 (See Alternative - Provider: Marietta Jarquin RN)2038 (Given - Provider: Marifer Caicedo RN) 0127 (Given - Provider: Landy Wilkinson, TERRY)0519 (Given - Provider: Marifer Caicedo RN)1034 (Given - Provider: Helene Schwartz, TERRY) oxyCODONE (ROXICODONE) immediate release tablet 5 mg(Linked Group 2) 5 mg, Oral, EVERY 4 HOURS PRN, Pain Moderate (4-6), Starting on Ana 05/16/21 at 1208, Post-op 1656 (Given - Provider: Marietta Jarquin RN)2038 (See Alternative - Provider: Marifer Caicedo RN) 0127 (See Alternative - Provider: Landy Wilkinson, TERRY)0519 (See Alternative - Provider: Marifer Caicedo RN)1034 (See Alternative - Provider: Helene Schwartz RN) phenol 1.4 % mouth spray 1 spray 1 spray, Mouth/Throat, EVERY 2 HOURS PRN, Sore Throat, Starting on Ana 05/16/21 at 1517 sodium chloride flush 0.9 % injection 5-40 mL 5-40 mL, Intravenous, PRN, Line Care, Starting on Ana 05/16/21 at 1208, After every IV line use, Post-op Linked Groups Order Group 1: ondansetron (ZOFRAN-ODT) disintegrating tablet 4 mgJump to med 4 mg, Oral, EVERY 8 HOURS PRN, Nausea, Vomiting, Starting on Ana 05/16/21 at 1208, Post-op Or ondansetron (ZOFRAN) injection 4 mgJump to med 4 mg, Intravenous, EVERY 6 HOURS PRN, Nausea, Vomiting, Starting on Ana 05/16/21 at 1208
Administer if oral route cannot be used.
Post-op Group 2: oxyCODONE (ROXICODONE) immediate release tablet 5 mgJump to med 5 mg, Oral, EVERY 4 HOURS PRN, Pain Moderate (4-6), Starting on Ana 05/16/21 at 1208, Post-op Or oxyCODONE (ROXICODONE) immediate release tablet 10 mgJump to med 10 mg, Oral, EVERY 4 HOURS PRN, Pain Severe (7-10), Starting on Ana 05/16/21 at 1208, Post-op Scheduled Medication Order 06/07/2021 06/08/2021 06/09/2021 gentamicin (GARAMYCIN) 340 mg in dextrose 5 % 250 mL IVPB (COMPLETED) 340 mg (rounded from 340.144 mg = 3.037 mg/kg 112 kg), IntraVENous, ONCE, 1 dose, On [place] 06/09/21 at 1445 1530 (New Bag - Prov ider: Lisa Isbell, TERRY)1550 (Stopped - Provider: Lisa Isbell RN) sodium chloride flush 0.9 % injection 3 mL(Linked Group 1) 3 mL, IntraVENous, EVERY 8 HOURS, First dose on 06/09/21 at 1245, Flush line with 3-5 mL 1530 (Given - Provid er: Lisa Isbell RN)2045 (Due) Linked Groups Order Group 1: Saline lock IV (COMPLETED) Routine, CONTINUOUS, Starting on 06/09/21 at 1230, Until Specified And sodium chloride flush 0.9 % injection 3 mLJump to med 3 mL, IntraVENous, EVERY 8 HOURS, First dose on 06/09/21 at 1245
Flush line with 3-5 mL
Scheduled Medication Order 06/20/2021 06/21/2021 06/22/2021 HYDROmorphone (DILAUDID) injection 0.5 mg (COMPLETED) 0.5 mg, IntraVENous, ONCE, On 06/22/21 at 1030, For 1 dose, If oral and IV narcotics ordered, use oral first and only use IV if oral is ineffective or cannot take oral. Do Not give oral and IV within 1 hour of each other unless specifically ordered. 1101 (Given - Provid er: Brittanie Alarcon RN) ondansetron (ZOFRAN) injection 4 mg (COMPLETED) 4 mg, IntraVENous, ONCE, On 06/22/21 at 1030, For 1 dose 1102 (Given - Provid er: Brittanie Alarcon RN) sodium chloride flush 0.9 % injection 3 mL(Linked Group 1) 3 mL, IntraVENous, EVERY 8 HOURS, First dose on 06/22/21 at 1030, Flush line with 3-5 mL 1109 (Given - Provid er: Brittanie Alarcon RN)1830 (Due) Linked Groups Order Group 1: Saline lock IV (COMPLETED) Routine, CONTINUOUS, Starting on 06/22/21 at 1030, Until Specified And sodium chloride flush 0.9 % injection 3 mLJump to med 3 mL, IntraVENous, EVERY 8 HOURS, First dose on 06/22/21 at 1030
Flush line with 3-5 mL
Reason for Visit (unrecogniz ed section and content) Reason Comments Radiology CT Specialty Diagnoses / Procedures Referred By Contac t Referred To Contact CT IMAGING Diagnoses Complete intestinal obstruction, unspecified cause (HCC) Procedures CT ABD/PEL W IVCON CT ABD & PELVIS W/CONTRAST Mireya Shah DO [address] [place] [id number] Imaging [place] [address] Referral ID Status Reason Start Date Expiration Date V isits Requested Visits Authorized [id number] Closed Auto-Generate d Referral 08/05/2023 09/03/2023 1 1 Reason Comments Complications pt c/o vaginal/ anal/urethral pain s/p vaginal 35 days ago. Patient was started on abx Thursday for uterine infection, initially improved but now worse. Chills at home. Reason Comments Shortness of Breath Wound Infection 4th degree vaginal t ear from childbirth Reason For Visit Description Start Date New - visit with practice Preliminary reason f or visit data, not yet signed by the author as of right foot pain Reason Comments Acute Visit weight gain Reason Comments Follow Up weight check Reason Comments Obesity Specialty Diagnoses / Procedures Referred By Contac t Referred To Contact Diagnoses Weight gain Procedures CONSULT [facility] OFFICE/OUTPATIENT [facility] MDM 60-74 MINUTES Leelee Tobar, MOBILITY ENGINEER.HOME VISITOR [employer] [address] [place] [address] Referral ID Status Reason Start Date Expiration Date V isits Requested Visits Authorized [id number] Closed PCP Requested Referral 05/22/2022 05/22/2023 1 1 Reason Comments Nasal Congestion drainage, low back p ain x 10-14 days Reason Comments Rash All over x 4 days Reason Comments weight concern Reason Comments Results Reason Comments Consult PCOS Reason Comments Obesity Weight Management Reason Comments Hernia Reason Comments New Patient 4th [employer] pa lsy, Right eye Reason Comments Consult hernia Specialty Diagnoses / Procedures Referred By Contac t Referred To Contact General Surgery Diagnoses Hernia of abdominal wall Procedures CONSULT TO GENERAL SURGERY OFFICE/OUTPATIENT [facility] MDM 60-74 MINUTES Cooper Gastelum, MOBILITY ENGINEER.HOME VISITOR [employer] [address] [place] [address] Rivera Pappas MD [address] [place] [address] Referral ID Status Reason Start Date Expiration Date V isits Requested Visits Authorized [id number] Closed PCP Requested Referral 12/01/2022 12/01/2023 1 1 Reason Comments Throat Problem Laryngitis, cough, c hest congestion, sob, runny nose x 5 days Reason Comments Blurred Vision Right Eye Reason Comments Follow Up For Diplopia Reason Comments Refill Request Reason Comments Orders Reason Comments Vaginal Problem Reason Comments Pain Left shoulder/blade pain x 2 weeks 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 Reason Comments Concern about STI Reason Comments ext document WC ER Report Reason Comments Manometry Reason Comments Follow Up Reason Comments Appointment Results Reason Comments Outside MRI Reason Comments Abdominal Pain RUQ pain Reason Comments Headache Hypertension Reason Comments Urinary Problem Possible uti frequen cy, odor x 2 days Reason Comments Erroneous encounter-disregard Reason Comments Abdominal Pain Reason Comments Patient Question Reason Comments New Patient Patient states that she has spontaneous and non-spontaneous discharge from her nipples that she believes is breast milk for the past 2.5 yrs; when she has pain she express milk from her nipples; last time she expressed milk was 3 weeks ago; her daughter will be 3 in April; she still get the let down feeling; family hx of breast cancer and ovarian cancer Specialty Diagnoses / Procedures Referred By Harpreet galindo Referred To Contact Breast Diseases Diagnoses Discharge from both nipples Procedures CONSULT TO BREAST CENTER OFFICE/OUTPATIENT NEW HIGH MDM 60 MINUTES Cooper Jordan, JOSE [address] [place] [address] Referral ID Status Reason Start Date Expiration Date V isits Requested Visits Authorized [id number] Closed PCP Requested Referral 10/29/2023 10/28/2024 1 1 Reason Comments Vaginal Problem Reason Comments Vaginal Problem Possible yeast infec tion-x 5 days Reason Comments Contraception Reason Comments Ear Pain Right ear pain and H A x 4 days Reason Comments Facial Swelling right side x today Reason Comments Appointment Reason Comments Diarrhea Fatigue and diarrhea x 2 weeks, night sweats w/o fever, concerned she may have C. Diff Reason Comments BMI Follow Up Reason Comments missed menses Reason Comments Acute Visit Reason Comments Urinary Problem Odor, discharge, pre ssure in pelvis, possible yeast infection, std testing x 2 days Reason Comments Follow Up Reason Comments 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ion Reason Comments Radiology Mammogram US Specialty Diagnoses / Procedures Referred By Contac t Referred To Contact BR IMAGING Diagnoses Discharge from both nipples Procedures US BREAST LTD RIGHT US BREAST UNI REAL TIME WITH IMAGE LIMITED Buck Szymanski, ASAEL.HOME VISITOR [employer] [address] [place] [address] Br Imaging [address] [place] [address] Referral ID Status Reason Start Date Expiration Date V isits Requested Visits Authorized [id number] Closed Auto-Generate d Referral 11/27/2023 10/11/2024 1 1 Reason Comments Ear Problem RIGHT ear, itchiness with minimal pain, nasal drainage & congestion x 3 days Reason Comments Consult Reason Comments Radiology MRI Reason Comments Established Patient 6 month follow up br east exam; no new breast concerns at this time; still having nipple discharge spontaneous Reason Comments New Patient Reason Comments Patient Question Reason Comments Patient Update Reason Comments New history of DVT Specialty Diagnoses / Procedures Referred By Contac t Referred To Contact Hematology Diagnoses History of blood clots Procedures CONSULT TO HEMATOLOGY OFFICE/OUTPATIENT NEW HIGH MDM 60 MINUTES Darlin Ling, MOBILITY ENGINEER.HOME VISITOR [employer] [address] [place] [address] Referral ID Status Reason Start Date Expiration Date V isits Requested Visits Authorized [id number] Closed PCP Requested Referral 06/27/2024 06/27/2025 1 1 Reason Comments PRAF Reason Comments Ear Pain R ear pain, sore thr oat, cough, congestion, x 2 days Reason Onset Date Comments Care 09/19/2024 Reason Comments US Specialty Diagnoses / Procedures Referred By Contac t Referred To Contact [facility] Diagnoses 7 weeks gestation of Procedures NUCHAL TRANSLUCENCY WHI US NUCHAL TRANSLUCENCY 1ST GESTATION Jammie Funes, MOBILITY ENGINEER.HOME VISITOR [employer] [address] [place] [address] [facility] [address] [place] [address] Referral ID Status Reason Start Date Expiration Date V isits Requested Visits Authorized [id number] Closed Auto-Generate d Referral 08/18/2024 08/18/2025 1 1 Reason Comments Dental Problem Reason Comments Derm Problem Rash R side of deepika x this AM Reason Comments breast pump Reason Onset Date Comments Care 10/20/2024 Reason Comments Question (OB Question) Specialty Diagnoses / Procedures Referred By Contac t Referred To Contact [facility] Diagnoses Supervision of high risk in second trimester Obesity affecting in second trimester, unspecified obesity type History of maternal fourth degree perineal laceration, currently Procedures OBSTETRIC ULTRASOUND WHI US PREG UTERUS AFTER 1ST TRIMEST GESTATION Tahmina Dumont MD [address] [place] [address] [address] Referral ID Status Reason Start Date Expiration Date V isits Requested Visits Authorized [id number] Closed Auto-Generate d Referral 10/20/2024 10/20/2025 1 1 Reason Comments Care US Specialty Diagnoses / Procedures Referred By Contac t Referred To Contact Diagnoses History of maternal fourth degree perineal laceration, currently Procedures CONSULT TO MATERNAL MEDI OFFICE/OUTPATIENT NEW HIGH MDM 60 MINUTES Tahmina Dumont MD [address] [place] [place] [address] Referral ID Status Reason Start Date Expiration Date V isits Requested Visits Authorized [id number] Closed PCP Requested Referral Auto-Generated Referral 10/20/2024 10/20/2025 1 1 Reason Onset Date Comments Care 11/15/2024 Reason Onset Date Comments Care 12/15/2024 Reason Comments Weed Thinner - Other PRAF Reason Onset Date Comments GDM 12/30/2024 Reason Comments OB Pain Reason Comments OB Abdominal Trauma Specialty Diagnoses / Procedures Referred By Contac t Referred To Contact [facility] Diagnoses Obesity affecting in second trimester, unspecified obesity type (HCC) History of maternal fourth degree perineal laceration, currently (HCC) Procedures OBSTETRIC ULTRASOUND WHI US PREG UTERUS AFTER 1ST TRIMEST GESTATION Tahmina Dumont MD [address] [place] [address] Phone: tel: fax: [facility] [address] [place] [address] Referral ID Status Reason Start Date Expiration Date V isits Requested Visits Authorized [id number] Closed Auto-Generate d Referral 11/15/2024 11/15/2025 6 1 Reason Onset Date Comments Care 01/20/2025 Reason Onset Date Comments Care 02/06/2025 Specialty Diagnoses / Procedures Referred By Contac t Referred To Contact [facility] Diagnoses Diet controlled gestational diabetes mellitus (GDM) in third trimester ([facility]) Procedures OBSTETRIC ULTRASOUND WHI US PREG UTERUS AFTER 1ST TRIMEST GESTATION Stephani Aaron APRN.YADI [address] [place] [address] Phone: tel: fax:[phone] [facility] [address] [place] [address] Referral ID Status Reason Start Date Expiration Date V isits Requested Visits Authorized [id number] Closed Auto-Generate d Referral 12/30/2024 12/30/2025 5 1 Reason Onset Date Comments Care 02/15/2025 Reason Onset Date Comments Care 02/16/2025 Reason Comments Request Outside Medical Records Reason Comments Received Outside Medical Records Reason Comments GDM Reason Onset Date Comments Results 12/29/2024 Reason Onset Date Comments Care 03/07/2025 Reason Onset Date Comments Care 03/21/2025 Reason Onset Date Comments Care 03/14/2025 Reason Comments Early Reason Comments Care Patient thinks she h as a fistulaH/o of 4th degree laceration Reason Comments Routine Reason Comments Wrist Pain Reason Comments UTI STD INFORMATION SOURCE (unrecogn ized section and content) DATE CREATED AUTHOR 06/28/2021 [facility] DATE CREATED AUTHOR AUTHOR'S ORGANIZ ATION 08/05/2022 [facility] DATE CREATED AUTHOR AUTHOR'S ORGANIZ ATION 08/11/2022 [facility] DATE CREATED AUTHOR AUTHOR'S ORGANIZ ATION 08/15/2022 [employer] DATE CREATED AUTHOR AUTHOR'S ORGANIZ ATION 12/26/2022 [facility] ([place] DATE CREATED AUTHOR AUTHOR'S ORGANIZ ATION 08/23/2023 [facility] DATE CREATED AUTHOR AUTHOR'S ORGANIZ ATION 08/23/2023 [facility] DATE CREATED AUTHOR AUTHOR'S ORGANIZ ATION 11/02/2023 [facility] DATE CREATED AUTHOR AUTHOR'S ORGANIZ ATION 07/17/2024 [facility] DATE CREATED AUTHOR AUTHOR'S ORGANIZ ATION 03/09/2025 [facility] DATE CREATED AUTHOR AUTHOR'S ORGANIZ ATION 03/28/2025 [facility] DATE CREATED AUTHOR AUTHOR'S ORGANIZ ATION 06/11/2025 [facility] Care Team (unrecognized sect ion and content) Department Supervisor Relationship Specialty Start Date End Date Roverto Diane MD [address] [place] [address] PCP - General Family Practice 03/23/17 Department Supervisor Relationship Specialty Start Date End Date Roverto Diane MD [address] [place] [address] PCP - General Family Practice 03/23/17 Department Supervisor Relationship Specialty Start Date End Date Roverto Diane MD [address] [place] [address] PCP - General Family Practice 03/23/17 Department Supervisor Relationship Specialty Start Date End Date Roverto Diane MD [address] [place] [address] PCP - General Family Practice 03/23/17 Department Supervisor Relationship Specialty Start Date End Date Roverto Diane MD [address] [place] [address] PCP - General Family Medicine 03/23/17 Department Supervisor Relationship Specialty Start Date End Date Roverto Diane MD [address] [facility] [place] [address] PCP - General Family Medicine 03/23/17 Department Supervisor Relationship Specialty Start Date End Date Roverto Diane MD [address] [facility] [place] [address] PCP - General Family Medicine 03/23/17 Department Supervisor Relationship Specialty Start Date End Date Roverto Diane MD [facility] [place] [address] PCP - General Family Medicine 03/23/17 Department Supervisor Relationship Specialty Start Date End Date Roverto Diane MD [facility] [place] [address] PCP - General Family Medicine 03/23/17 Department Supervisor Relationship Specialty Start Date End Date Roverto Diane MD [facility] [place] [address] PCP - General Family Medicine 03/23/17 Department Supervisor Relationship Specialty Start Date End Date Roverto Diane MD [facility] [place] [address] PCP - General Family Medicine 03/23/17 Department Supervisor Relationship Specialty Start Date End Date Roverto Diane MD [facility] [place] [address] PCP - General Family Medicine 03/23/17 Department Supervisor Relationship Specialty Start Date End Date Roverto Diane MD [facility] [place] [address] PCP - General Family Medicine 03/23/17 Department Supervisor Relationship Specialty Start Date End Date Roverto Diane MD [facility] [place] [address] PCP - General Family Medicine 03/23/17 Department Supervisor Relationship Specialty Start Date End Date Roverto Diane MD [address] [facility] [place] [address] PCP - General Family Medicine 03/23/17 Department Supervisor Relationship Specialty Start Date End Date Roverto Diane MD [address] [facility] [place] [address] PCP - General Family Medicine 03/23/17 Department Supervisor Relationship Specialty Start Date End Date Roverto Diane MD [address] [facility] [place] [address] PCP - General Family Medicine 03/23/17 Department Supervisor Relationship Specialty Start Date End Date Roverto Diane MD [address] [place] [address] PCP - General Family Medicine 03/23/17 Department Supervisor Relationship Specialty Start Date End Date Roverto Diane MD [address] [facility] [place] [address] PCP - General Family Medicine 03/23/17 Department Supervisor Relationship Specialty Start Date End Date Roverto Diane MD [address] [place] [address] PCP - General Family Medicine 03/23/17 Department Supervisor Relationship Specialty Start Date End Date Roverto Diane MD [address] [facility] [place] [address] PCP - General Family Medicine 03/23/17 Department Supervisor Relationship Specialty Start Date End Date Roverto Diane MD [address] [facility] [place] [address] PCP - General Family Medicine 03/23/17 Department Supervisor Relationship Specialty Start Date End Date Roverto Diane MD [address] [place] [address] PCP - General Family Medicine 03/23/17 Department Supervisor Relationship Specialty Start Date End Date Roverto Diane MD [address] [place] [address] PCP - General Family Medicine 03/23/17 Team Status: Active Member Role Status Dates Dr. Alfredo Barroso MD Family Provider Active Dr. Alfredo Barroso MD Primary Care Provider Acti ve Team Status: Inactive Member Role Status Dates Dr. Alfredo Barroso MD Primary Care Provider Acti ve Dr. Zac Courtney DO Emergency Provider Active Department Supervisor Relationship Specialty Start Date End Date Roverto Diane MD [address] [place] [address] PCP - General Family Medicine 03/23/17 Department Supervisor Relationship Specialty Start Date End Date Roverto Diane MD [address] [place] [address] PCP - General Family Medicine 03/23/17 Department Supervisor Relationship Specialty Start Date End Date Roverto Diane MD [address] [place] [address] PCP - General Family Medicine 03/23/17 Department Supervisor Relationship Specialty Start Date End Date Roverto Diane MD [address] [place] [address] PCP - General Family Medicine 03/23/17 Department Supervisor Relationship Specialty Start Date End Date Roverto Diane MD [address] [place] [address] PCP - General Family Medicine 03/23/17 Team Status: Active Member Role Status Dates Dr. Alfredo Barroso MD Primary Care Provider Acti ve Dr. Zac Courtney , DO Emergency Provider Active Dr. Christofer Nj MD Attending Provider Active Team Status: Inactive Member Role Status Dates Dr. Alfredo Barroso MD Primary Care Provider Acti ve Dr. Zac Courtney , DO Attending Provider, Emergency Provide r Active Team Status: Active Member Role Status Dates Dr. Alfredo Barroso MD Primary Care Provider Acti ve Dr. Zac Courtney , DO Emergency Provider Active Dr. Christofer Nj MD Admit Provider, Attending Provider Active Department Supervisor Relationship Specialty Start Date End Date Roverto Diane MD [address] [place] [address] PCP - General Family Medicine 03/23/17 Department Supervisor Relationship Specialty Start Date End Date Roverto Diane MD [address] [place] [address] PCP - General Family Medicine 03/23/17 Team Status: Active Member Role Status Dates Dr. Alfredo Barroso MD Primary Care Provider Acti ve Dr. Zac Courtney , Emergency Provider Active Dr. Christofer Nj MD Admit Provid er, Attending Provider, Other Provider Active Team Status: Inactive Member Role Status Dates Dr. Alfredo Barroso MD Primary Care Provider Acti ve Dr. Christofer Nj MD Attending Provider, Referr ing Provider Active Team Status: Inactive Member Role Status Dates Dr. Alfredo Barroso MD Primary Care Provider Acti ve Dr. Zac Courtney DO Emergency Provider Active Dr. Christofer Nj MD Admit Provider, Attending Provider Active Team Status: Inactive Member Role Status Dates Dr. Alfredo Barroso MD Primary Care Provider Acti ve Dr. Delgado Marie MD Emergency Provider Active Department Supervisor Relationship Specialty Start Date End Date Roverto Diane MD [address] [place] [address] PCP - General Family Medicine 03/23/17 Department Supervisor Relationship Specialty Start Date End Date Roverto Diane MD [address] [place] [address] PCP - General Family Medicine 03/23/17 Department Supervisor Relationship Specialty Start Date End Date Roverto Diane MD [address] [place] [address] PCP - General Family Medicine 03/23/17 Department Supervisor Relationship Specialty Start Date End Date Roverto Diane MD [address] [place] [address] PCP - General Family Medicine 03/23/17 Department Supervisor Relationship Specialty Start Date End Date Roverto Diane MD [address] [place] [address] PCP - General Family Medicine 03/23/17 Department Supervisor Relationship Specialty Start Date End Date Roverto Diane MD [address] [place] [address] PCP - General Family Medicine 03/23/17 Team Status: Inactive Member Role Status Dates Dr. Alfredo Barroso MD Primary Care Provider Acti ve Dr. Mica Mcneil DO Emergency Provider Active Team Status: Inactive Member Role Status Dates Dr. Alfredo Barroso MD Primary Care Provider Acti ve Dr. Delgado Marie MD Attending Provider, Emergency Pro vider Active Department Supervisor Relationship Specialty Start Date End Date Roverto Diane MD [address] [place] [address] PCP - General Family Medicine 03/23/17 Department Supervisor Relationship Specialty Start Date End Date Roverto Diane MD [address] [place] [address] PCP - General Family Medicine 03/23/17 Department Supervisor Relationship Specialty Start Date End Date Roverto Diane MD [address] [place] [address] PCP - General Family Medicine 03/23/17 Team Status: Inactive Member Role Status Dates Dr. Alfredo Barroso MD Primary Care Provider Acti ve Dr. Mica Mcneil DO Attending Provider, Emergency P doris Active Team Status: Inactive Member Role Status Dates Dr. Alfredo Barroso MD Primary Care Provider Acti ve Dr. Juanjo Velez DO Emergency Provider Active Department Supervisor Relationship Specialty Start Date End Date Roverto Diane MD [address] [place] [address] PCP - General Family Medicine 03/23/17 Department Supervisor Relationship Specialty Start Date End Date Roverto Diane MD [address] [place] [address] PCP - General Family Medicine 03/23/17 Department Supervisor Relationship Specialty Start Date End Date Roverto Diane MD [address] [place] [address] PCP - General Family Medicine 03/23/17 Team Status: Inactive Member Role Status Dates Dr. Alfredo Barroso MD Primary Care Provider Acti ve Dr. Juanjo Velez DO Attending Provider, Emergency Provider Active Team Status: Inactive Member Role Status Dates Dr. Alfredo Barroso MD Primary Care Provider Acti ve Tanner Ryan MD Emergency Provider Active Department Supervisor Relationship Specialty Start Date End Date Roverto Diane MD [address] [place] [address] PCP - General Family Medicine 03/23/17 Department Supervisor Relationship Specialty Start Date End Date Roverto Diane MD [address] [place] [address] PCP - General Family Medicine 03/23/17 Department Supervisor Relationship Specialty Start Date End Date Roverto Diane MD [address] [place] [address] PCP - General Family Medicine 03/23/17 Department Supervisor Relationship Specialty Start Date End Date Roverto Diane MD [address] [place] [address] PCP - General Family Medicine 03/23/17 Department Supervisor Relationship Specialty Start Date End Date Roverto Diane MD [address] [place] [address] PCP - General Family Medicine 03/23/17 Department Supervisor Relationship Specialty Start Date End Date Roverto Diane MD [address] [place] [address] PCP - General Family Medicine 03/23/17 Department Supervisor Relationship Specialty Start Date End Date Roverto Diane MD [address] [place] [address] PCP - General Family Medicine 03/23/17 Department Supervisor Relationship Specialty Start Date End Date Roverto Diane MD [address] [place] [address] PCP - General Family Medicine 03/23/17 Department Supervisor Relationship Specialty Start Date End Date Roverto Diane MD [address] [place] [address] PCP - General Family Medicine 03/23/17 Department Supervisor Relationship Specialty Start Date End Date Roverto Diane MD [address] [place] [address] PCP - General Family Medicine 03/23/17 Department Supervisor Relationship Specialty Start Date End Date Roverto Diane MD [address] [place] [address] PCP - General Family Medicine 03/23/17 Department Supervisor Relationship Specialty Start Date End Date Roverto Diane MD [address] [place] [address] PCP - General Family Medicine 03/23/17 Department Supervisor Relationship Specialty Start Date End Date Roverto Diane MD [address] [place] [address] PCP - General Family Medicine 03/23/17 Department Supervisor Relationship Specialty Start Date End Date Roverto Diane MD [address] [place] [address] PCP - General Family Medicine 03/23/17 Department Supervisor Relationship Specialty Start Date End Date Roverto Diane MD [address] [place] [address] PCP - General Family Medicine 03/23/17 Department Supervisor Relationship Specialty Start Date End Date Roverto Diane MD [address] [place] [address] PCP - General Family Medicine 03/23/17 Department Supervisor Relationship Specialty Start Date End Date Roverto Diane MD [address] [place] [address] PCP - General Family Medicine 03/23/17 Department Supervisor Relationship Specialty Start Date End Date Roverto Diane MD [address] [place] [address] PCP - General Family Medicine 03/23/17 Department Supervisor Relationship Specialty Start Date End Date Roverto Diane MD [address] [place] [address] PCP - General Family Medicine 03/23/17 Department Supervisor Relationship Specialty Start Date End Date Roverto Diane MD [address] [place] [address] PCP - General Family Medicine 03/23/17 Department Supervisor Relationship Specialty Start Date End Date Roverto Diane MD [address] [place] [address] PCP - General Family Medicine 03/23/17 Department Supervisor Relationship Specialty Start Date End Date Roverto Diane MD [address] [place] [address] PCP - General Family Medicine 03/23/17 Department Supervisor Relationship Specialty Start Date End Date Roverto Diane MD [address] [place] [address] PCP - General Family Medicine 03/23/17 Department Supervisor Relationship Specialty Start Date End Date Roverto Diane MD [address] [place] [address] PCP - General Family Medicine 03/23/17 Department Supervisor Relationship Specialty Start Date End Date Roverto Diane MD [address] [place] [address] PCP - General Family Medicine 03/23/17 Department Supervisor Relationship Specialty Start Date End Date Roverto Diane MD [address] [place] [address] PCP - General Family Medicine 03/23/17 Cooper Gastelum, ASAEL.HOME VISITOR HOME BASE HEAD START [address] [place] [address] Condemnation Engineer [facility] 09/17/24 Sallie Bustamante PA-C [address] [place] [address] [facility] 09/17/24 Department Supervisor Relationship Specialty Start Date End Date Roverto Diane MD [address] [place] [address] PCP - General Family Medicine 03/23/17 Cooper Gastelum, MOBILITY ENGINEER.HOME VISITOR HOME BASE HEAD START [address] [place] [address] Condemnation Engineer Family Medicine 09/17/24 Sallie Bustamante PA-C [address] [place] [address] [facility] 09/17/24 Department Supervisor Relationship Specialty Start Date End Date Roverto Diane MD [address] [place] [address] PCP - General Family Medicine 03/23/17 Cooper Gastelum, MOBILITY ENGINEER.HOME VISITOR HOME BASE HEAD START [address] [place] [address] Condemnation Engineer Family Medicine 09/17/24 Sallie Bustamante PA-C [address] [facility] [place] [address] Condemnation Engineer [facility] 09/17/24 Department Supervisor Relationship Specialty Start Date End Date Roverto Diane MD [address] [place] [address] PCP - General Family Medicine 03/23/17 Cooper Gastelum APRN.HOME VISITOR HOME [employer] START [address] [place] [address] Condemnation Engineer Family Medicine 09/17/24 Sallie Bustamante PA-C [address] [place] [address] [facility] Department Supervisor Relationship Specialty Start Date End Date Roverto Diane MD [address] [place] [address] PCP - General Family Medicine 03/23/17 Cooper Gastelum APRN.HOME VISITOR HOME [employer] START [address] [place] [address] Condemnation Engineer Family Medicine 09/17/24 Sallie Bustamante PA-C [address] [place] [address] [facility] 09/17/24 Department Supervisor Relationship Specialty Start Date End Date Roverto Diane MD [address] [place] [address] PCP - General Family Medicine 03/23/17 Cooper Gastelum APRN.HOME VISITOR HOME BASE [employer] START [address] [place] [address] Condemnation Engineer Family [facility] 09/17/24 Sallie Bustamante PA-C [address] [place] [address] Condemnation Engineer Family Medicine 09/17/24 Department Supervisor Relationship Specialty Start Date End Date Roverto Diane MD [address] [place] [address] PCP - General Family Medicine 03/23/17 Cooper Gastelum APRN.HOME VISITOR HOME B[employer] START [address] [place] [address] Condemnation Engineer Family Medicine 09/17/24 Sallie Bustamante PA-C [address] [place] [address] Condemnation Engineer Family Medicine 09/17/24 Department Supervisor Relationship Specialty Start Date End Date Roverto Diane MD [address] [place] [address] PCP - General Family Medicine 03/23/17 Cooper Gastelum APRN.HOME VISITOR HOME BASE HEAD START [address] [place] [address] Condemnation Engineer Family Medicine 09/17/24 Sallie Bustamante PA-C [address] [place] [address] Condemnation Engineer Family Medicine 09/17/24 Department Supervisor Relationship Specialty Start Date End Date Roverto Diane MD [address] [place] [address] PCP - General Family Medicine 03/23/17 Cooper Gastelum, MOBILITY ENGINEER.HOME VISITOR HOME BASE HEAD START [address] [place] [address] Condemnation Engineer Family [facility] 09/17/24 Sallie uBstamante PA-C [address] [place] [address] Condemnation Engineer Family Medicine 09/17/24 Department Supervisor Relationship Specialty Start Date End Date Roverto Diane MD [address] [place] [address] PCP - General Family Medicine 03/23/17 Cooper Gastelum, ASAEL.HOME VISITOR HOME BASE [employer] START [address] [place] [address] Condemnation Engineer Family Medicine 09/17/24 Sallie Bustamante PA-C [address] [place] [address] Condemnation Engineer Family Medicine 09/17/24 Department Supervisor Relationship Specialty Start Date End Date Roverto Diane MD [address] [place] [address] PCP - General Family Medicine 03/23/17 Cooper Gastelum, MOBILITY ENGINEER.HOME VISITOR HOME BASE HEAD START [address] [place] [address] Condemnation Engineer Family Medicine 09/17/24 Sallie Bustamante PA-C [address] [place] [address] Condemnation Engineer Family Medicine 09/17/24 Department Supervisor Relationship Specialty Start Date End Date Roverto Diane MD [address] [place] [address] PCP - General Family Medicine 03/23/17 Cooper Gastelum APRN.HOME VISITOR HOME B[employer] START [address] [place] [address] Condemnation Engineer Family Medicine 09/17/24 Sallie Bustamante PA-C [address] [place] [address] Condemnation Engineer Family Medicine 09/17/24 Department Supervisor Relationship Specialty Start Date End Date Roverto Diane MD [address] [place] [address] PCP - General Family Medicine 03/23/17 Cooper Gastelum APRN.HOME VISITOR HOME BASE HEAD START [address] [place] [address] Condemnation Engineer Family Medicine 09/17/24 Sallie Bustamante PA-C [address] [place] [address] Condemnation Engineer Family Medicine 09/17/24 Department Supervisor Relationship Specialty Start Date End Date Roverto Diane MD [address] [place] [address] PCP - General Family Medicine 03/23/17 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 HOME BASE HEAD START [address] [place] [address] Condemnation Engineer Family Medicine 09/17/24 Sallie Bustamante PA-C [address] [place] [address] Condemnation Engineer Family Medicine 09/17/24 Department Supervisor Relationship Specialty Start Date End Date Roverto Diane MD [address] [place] [address] PCP - General Family Medicine 03/23/17 Cooper Gastelum, ASAEL.HOME VISITOR HOME B[employer] START [address] [place] [address] [facility] 09/17/24 Sallie Bustamante PA-C [address] [place] [address] [facility] 09/17/24 Department Supervisor Relationship Specialty Start Date End Date Roverto Diane MD [address] [place] [address] PCP - General Family Medicine 03/23/17 Cooper Gastelum, ASAEL.HOME VISITOR HOME BASE HEAD START [address] [place] [address] [facility] 09/17/24 Sallie Bustamante PA-C [address] [place] [address] [facility] 09/17/24 Team Status: Active Member Role Status Dates Dr. Alfredo Barroso MD Primary Care Provider Acti ve Team Status: Inactive Member Role Status Dates Dr. Alfredo Barroso MD Primary Care Provider Acti ve Start: September 28, 2024 End: September 28, 2024 Dr. Alfredo Barroso MD Referring Provider Active Start: September 28, 2024 End: September 28, 2024 Dr. David Michael MD Attending Provider Active S tart: September 28, 2024 End: September 28, 2024 Team Status: Inactive Member Role Status Dates Dr. Alfredo Barroso MD Primary Care Provider Acti ve Start: October 12, 2024 End: October 12, 2024 Dr. Jayro Brooks DO Attending Provider Active Start: October 12, 2024 End: October 12, 2024 Dr. Jayro Brooks DO Emergency Provider Active Start: October 12, 2024 End: October 12, 2024 Team Status: Inactive Member Role Status Dates Dr. Alfredo Barroso MD Primary Care Provider Acti ve Start: October 25, 2024 End: October 25, 2024 Dr. Yovani Uriostegui DO Attending Provider Active Start: October 25, 2024 End: October 25, 2024 Dr. Yovani Uriostegui DO Emergency Provider Active Start: October 25, 2024 End: October 25, 2024 Team Status: Inactive Member Role Status Dates Dr. Alfredo Barroso MD Primary Care Provider Acti ve Start: October 30, 2024 End: October 30, 2024 Dr. Yovani Uriostegui DO Attending Provider Active Start: October 30, 2024 End: October 30, 2024 Dr. Yovani Uriostegui DO Emergency Provider Active Start: October 30, 2024 End: October 30, 2024 Team Status: Inactive Member Role Status Dates Dr. Alfredo Barroso MD Primary Care Provider Acti ve Start: January 05, 2025 End: January 05, 2025 Dr. Marietta Lugo MD Attending Provider Active Start: January 05, 2025 End: January 05, 2025 Dr. Marietta Lugo MD Referring Provider Active Start: January 05, 2025 End: January 05, 2025 Team Status: Inactive Member Role Status Dates Dr. Alfredo Barroso MD Primary Care Provider Acti ve Start: January 09, 2025 End: January 09, 2025 Dr. Angela Paul DO Attending Provider Active Start: January 09, 2025 End: January 09, 2025 Dr. Angela Paul DO Referring Provider Active Start: January 09, 2025 End: January 09, 2025 Department Supervisor Relationship Specialty Start Date End Date Roverto Diane MD [address] [place] [address] PCP - General Family Medicine 03/23/17 Cooper Gastelum, MOBILITY ENGINEER.HOME VISITOR HOME BASE HEAD START [address] [place] [address] Condemnation Engineer Family Medicine 09/17/24 Sallie Bustamante PA-C [address] [place] [address] Condemnation Engineer Family Medicine 09/17/24 Department Supervisor Relationship Specialty Start Date End Date Roverto Diane MD [address] [place] [address] PCP - General Family Medicine 03/23/17 Cooper Gastelum, MOBILITY ENGINEER.HOME VISITOR HOME BASE HEAD START [address] [place] [address] Condemnation Engineer Family Medicine 09/17/24 Sallie Bustamante PA-C [address] [place] [address] Condemnation Engineer Family [facility] 09/17/24 Department Supervisor Relationship Specialty Start Date End Date Roverto Diane MD [address] [place] [address] PCP - General Family Medicine 03/23/17 Cooper Gastelum, MOBILITY ENGINEER.HOME VISITOR HOME BASE HEAD START [address] [place] [address] Condemnation Engineer Family Medicine 09/17/24 Sallie Bustamante PA-C [address] [place] [address] Condemnation Engineer Family [facility] 09/17/24 Department Supervisor Relationship Specialty Start Date End Date Roverto Diane MD [address] [place] [address] PCP - General Family Medicine 03/23/17 Cooper Gastelum APRN.HOME VISITOR HOME BASE HEAD START [address] [place] [address] Condemnation Engineer Family [facility] 09/17/24 Sallie Bustamante PA-C [address] [place] [address] Condemnation Engineer Family [facility] 09/17/24 Department Supervisor Relationship Specialty Start Date End Date Roverto Diane MD [address] [place] [address] PCP - General Family Medicine 03/23/17 Cooper Gastelum, ASAEL.HOME VISITOR HOME BASE HEAD START [address] [place] [address] Condemnation Engineer Family [facility] 09/17/24 Sallie Bustamante PA-C [address] [place] [address] Condemnation Engineer Family Medicine 09/17/24 Department Supervisor Relationship Specialty Start Date End Date Roverto Diane MD [address] [place] [address] PCP - General Family Medicine 03/23/17 Cooper Gastelum APRN.HOME VISITOR HOME BASE HEAD START [address] [place] [address] Condemnation Engineer Family Medicine 09/17/24 Sallie Bustamante PA-C [address] [place] [address] [facility] 09/17/24 Department Supervisor Relationship Specialty Start Date End Date Roverto Diane MD [address] [place] [address] PCP - General Family Medicine 03/23/17 Cooper Gastelum, MOBILITY ENGINEER.HOME VISITOR HOME BASE HEAD START [address] [place] [address] [facility] 09/17/24 Sallie Bustamante PA-C [address] [place] [address] [facility] 09/17/24 Department Supervisor Relationship Specialty Start Date End Date Roverto Diane MD [address] [place] [address] PCP - General Family Medicine 03/23/17 Cooper Gastelum, MOBILITY ENGINEER.HOME VISITOR HOME BASE HEAD START [address] [place] [address] [facility] 09/17/24 Sallie Bustamante PA-C [address] [place] [address] [facility] 09/17/24 Department Supervisor Relationship Specialty Start Date End Date Roverto Diane MD [address] [place] [address] PCP - General Family Medicine 03/23/17 Cooper Gastelum, MOBILITY ENGINEER.HOME VISITOR HOME BASE HEAD START [address] [place] [address] Condemnation Engineer Family [facility] 09/17/24 Sallie Bustamante PA-C [address] [place] [address] Condemnation Engineer Family [facility] 09/17/24 Department Supervisor Relationship Specialty Start Date End Date Roverto Diane MD [address] [place] [address] PCP - General Family Medicine 03/23/17 Cooper Gastelum APRN.HOME VISITOR HOME BASE HEAD START [address] [place] [address] Condemnation Engineer Family [facility] 09/17/24 Sallie Bustamante PA-C [address] [place] [address] Condemnation Engineer [facility] 09/17/24 Department Supervisor Relationship Specialty Start Date End Date Roverto Diane MD [address] [place] [address] PCP - General Family Medicine 03/23/17 Cooper Gastelum APRN.HOME VISITOR HOME BASE [employer] START [address] [place] [address] Condemnation Engineer Family [facility] 09/17/24 Sallie Bustamante PA-C [address] [place] [address] Condemnation Engineer [facility] 09/17/24 Department Supervisor Relationship Specialty Start Date End Date Roverto Diane MD [address] [place] [address] PCP - General Family Medicine 03/23/17 Cooper Gastelum APRN.HOME VISITOR HOME BASE HEAD START [address] [place] [address] Condemnation Engineer Family Medicine 09/17/24 Sallie Bustamante PA-C [address] [place] [address] Condemnation Engineer Family [facility] 09/17/24 Department Supervisor Relationship Specialty Start Date End Date Roverto Diane MD [address] [place] [address] PCP - General Family Medicine 03/23/17 Cooper Gastelum APRN.HOME VISITOR HOME BASE HEAD START [address] [place] [address] Condemnation Engineer Family Medicine 09/17/24 Sallie Bustamante PA-C [address] [place] [address] Condemnation Engineer [facility] 09/17/24 Department Supervisor Relationship Specialty Start Date End Date Roverto Diane MD [address] [place] [address] PCP - General Family Medicine 03/23/17 Cooper Gastelum APRN.HOME VISITOR HOME BASE HEAD START [address] [place] [address] Condemnation Engineer Family Medicine 09/17/24 Sallie Bustamante PA-C [address] [place] [address] Condemnation Engineer Family Medicine 09/17/24 Department Supervisor Relationship Specialty Start Date End Date Roverto Diane MD [address] [place] [address] PCP - General Family Medicine 03/23/17 Cooper Gastelum, ASAEL.HOME VISITOR HOME BASE HEAD START [address] [facility] [place] [address] Condemnation Engineer Family Medicine 09/17/24 Sallie Bustamante PA-C [address] [facility] [place] [address] Condemnation Engineer Family Medicine 09/17/24 Department Supervisor Relationship Specialty Start Date End Date Roverto Diane MD [address] [place] [address] PCP - General Family Medicine 03/23/17 Cooper Gastelum APRN.HOME VISITOR HOME BASE HEAD START [address] [place] [address] Condemnation Engineer Family Medicine 09/17/24 Sallie Bustamante PA-C [address] [place] [address] Condemnation Engineer Family Medicine 09/17/24 Department Supervisor Relationship Specialty Start Date End Date Roverto Diane MD [address] [place] [address] PCP - General Family Medicine 03/23/17 Cooper Gastelum, MOBILITY ENGINEER.HOME VISITOR HOME BASE HEAD START [address] [place] [address] Condemnation Engineer Family Medicine 09/17/24 Sallie Bustamante PA-C [address] [facility] [place] [address] Condemnation Engineer Family Medicine 09/17/24 Department Supervisor Relationship Specialty Start Date End Date Roverto Diane MD [address] [place] [address] PCP - General Family Medicine 03/23/17 Cooper Gastelum, ASAEL.HOME VISITOR HOME BASE [employer] START [address] [place] [address] Condemnation Engineer Family Medicine 09/17/24 Sallie Bustamante PA-C [address] [place] [address] Condemnation Engineer Family Medicine 09/17/24 Department Supervisor Relationship Specialty Start Date End Date Roverto Diane MD [address] [place] [address] PCP - General Family Medicine 03/23/17 Cooper Gastelum, MOBILITY ENGINEER.HOME VISITOR HOME BASE [employer] START [address] [place] [address] Condemnation Engineer Family Medicine 09/17/24 Sallie Bustamante PA-C [address] [place] [address] Condemnation Engineer Family Medicine 09/17/24 Department Supervisor Relationship Specialty Start Date End Date Roverto Diane MD [address] [place] [address] PCP - General Family Medicine 03/23/17 Cooper Gastelum, MOBILITY ENGINEER.HOME VISITOR HOME BASE [employer] START [address] [place] [address] Condemnation Engineer Family Medicine 09/17/24 02/26/25 Sallie Bustamante PA-C [address] [place] [address] Condemnation Engineer Family Medicine 09/17/24 Department Supervisor Relationship Specialty Start Date End Date Roverto Diane MD [address] [place] [address] PCP - General Family Medicine 03/23/17 Sallie Bustamante PA-C [address] [place] [address] [facility] Department Supervisor Relationship Specialty Start Date End Date Roverto Diane MD [address] [place] [address] PCP - General Family Medicine 03/23/17 Sallie Bustamante PA-C [address] [place] [address] [facility] 09/17/24 Department Supervisor Relationship Specialty Start Date End Date Roverto Diane MD [address] [place] [address] PCP - General Family Medicine 03/23/17 Cooper Gastelum APRN.HOME VISITOR HOME BASE HEAD START [address] [place], [place] [address] [phone] [facility]24 02/26/25 Sallie Bustamante PA-C [address] [place] [address] [facility] 09/17/24 Department Supervisor Relationship Specialty Start Date End Date Roverto Diane MD [address] [place] [address] PCP - General Family Medicine 03/23/17 Cooper Gastelum, ASAEL.HOME VISITOR HOME BASE HEAD START [address] [facility] [place] [address] Condemnation Engineer Family Medicine 03/13/25 Sallie Bustamante PA-C [address] [facility] [place] [address] Condemnation Engineer Family Medicine 03/13/25 Department Supervisor Relationship Specialty Start Date End Date Roverto Diane MD [address] [place] [address] PCP - General Family Medicine 03/23/17 Cooper Gastelum APRN.HOME VISITOR HOME [employer] START [address] [place] [address] Condemnation Engineer Family Medicine 03/13/25 Sallie Bustamante PA-C [address] [place] [address] Condemnation Engineer Family Medicine 03/13/25 Department Supervisor Relationship Specialty Start Date End Date Roverto Diane MD [address] [place] [address] PCP - General Family Medicine 03/23/17 Cooper Gastelum, ASAEL.HOME VISITOR HOME BASE HEAD START [address] [facility] [place] [address] Condemnation Engineer Family Medicine 03/13/25 Sallie Bustamante PA-C [address] [facility] [place] [address] Condemnation Engineer Family Medicine 03/13/25 Department Supervisor Relationship Specialty Start Date End Date Roverto Diane MD [address] [place] [address] PCP - General Family Medicine 03/23/17 Cooper Gastelum APRN.HOME VISITOR HOME BASE HEAD START [address] [place] [address] Condemnation Engineer Family Medicine 03/13/25 Sallie Bustamante PA-C [address] [place] [address] Condemnation Engineer Family Medicine 03/13/25 Department Supervisor Relationship Specialty Start Date End Date Roverto Diane MD [address] [place] [address] PCP - General Family Medicine 03/23/17 Cooper Gastelum APRN.HOME VISITOR HOME BASE [employer] START [address] [place] [address] Condemnation Engineer Family Medicine 03/13/25 Sallie Bustamante PA-C [address] [place] [address] Condemnation Engineer Family Medicine 03/13/25 Department Supervisor Relationship Specialty Start Date End Date Roverto Diane MD [address] [place] [address] PCP - General Family Medicine 03/23/17 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 HOME [employer] START [address] [place] [address] Condemnation Engineer Family Medicine 09/17/24 02/26/25 Sallie Bustamante PA-C [address] [place] [address] Condemnation Engineer Family Medicine 09/17/24 03/12/25 Cooper Gastelum, MOBILITY ENGINEER.HOME VISITOR HOME B[employer] START [address] [place] [address] Condemnation Engineer Family Medicine 03/13/25 Sallie Bustamante PA-C [address] [facility] [place] [address] [facility] 03/13/25 Department Supervisor Relationship Specialty Start Date End Date Roverto Diane MD [address] [place] [address] PCP - General Family Medicine 03/23/17 Cooper Gastelum, MOBILITY ENGINEER.HOME VISITOR HOME BASE HEAD START [address] [place] [address] [facility] Family Medicine 09/17/24 02/26/25 Sallie Bustamante PA-C [address] [place] [address] [facility] Medicine 09/17/24 03/12/25 Cooper Gastelum, MOBILITY ENGINEER.HOME VISITOR HOME BASE HEAD START [address] [place] [address] [facility] Family Medicine 03/13/25 Sallie Bustamante PA-C [address] [facility] [place] [address] [facility] Medicine 03/13/25 Department Supervisor Relationship Specialty Start Date End Date Roverto Diane MD [address] [facility] [place] [address] PCP - General Family Medicine 03/23/17 Sallie Bustamante PA-C [address] [place] [address] Condemnation Engineer Family Medicine 09/17/24 03/12/25 Cooper Gastelum APRN.HOME VISITOR HOME BASE HEAD START [address] [place] [address] Condemnation Engineer Family Medicine 03/13/25 Sallie Bustamante PA-C [address] [place] [address] Condemnation Engineer Family Medicine 03/13/25 Department Supervisor Relationship Specialty Start Date End Date Roverto Diane MD [address] [place] [address] PCP - General Family Medicine 03/23/17 Cooper Gastelum APRN.HOME VISITOR HOME BASE HEAD START [address] [place] [address] Condemnation Engineer Family Medicine 03/13/25 Sallie Bustamante PA-C [address] [place] [address] Condemnation Engineer Family Medicine 03/13/25 Department Supervisor Relationship Specialty Start Date End Date Roverto Diane MD [address] [place] [address] PCP - General Family Medicine 03/23/17 Cooper Gastelum APRN.HOME VISITOR HOME BASE HEAD START [facility] [place] [address] Condemnation Engineer Family Medicine 03/13/25 Sallie Bustamante PA-C [address] [place] [address] Condemnation Engineer Family Medicine 03/13/25 Department Supervisor Relationship Specialty Start Date End Date Roverto Diane MD [address] [place] [address] PCP - General Family Medicine 03/23/17 Sallie Bustamante PA-C [address] [place] [address] Condemnation Engineer Family Medicine 09/17/24 03/12/25 Cooper Gastelum APRN.HOME VISITOR HOME BASE HEAD START [address] [place] [address] Condemnation Engineer Family Medicine 03/13/25 Sallie Bustamante PA-C [address] [place] [address] Condemnation Engineer Family Medicine 03/13/25 Department Supervisor Relationship Specialty Start Date End Date Roverto Diane MD [address] [place] [address] PCP - General Family Medicine 03/23/17 Cooper Gastelum APRN.HOME VISITOR HOME BASE HEAD START [address] [place] [address] Condemnation Engineer Family Medicine 03/13/25 Sallie Bustamante PA-C [address] [place] [address] Condemnation Engineer Family Medicine 03/13/25 Department Supervisor Relationship Specialty Start Date End Date Roverto Diane MD [address] [place] [address] PCP - General Family Medicine 03/23/17 Cooper Gastelum APRN.HOME VISITOR HOME BASE HEAD START [address] [place] [address] Condemnation Engineer Family Medicine 03/13/25 Sallie Bustamante PA-C [address] [place], [place] [address] Condemnation Engineer [facility] 03/13/25 Care Team (unrecognized sect ion and content) Care Team Personnel Name: DAY VELAZQUEZ MD Position: P4 Oncology Provider Med Service: DIGITAL PRINT OPERATOR-ONC Infusion Therapy Member Role: Primary Care Physician Address: Address: [address] [place] [address] Gynecologic On[address] Name: DAY VELAZQUEZ MD Position: P4 Oncology Provider Med Service: DIGITAL PRINT OPERATOR-ONC Infusion Therapy Member Role: Primary Care Physician Address: Address: [address] [place] [address] Gy[address]ologic On[address] Care Team Related Persons Name: AZAR ZAMORA Name: NAILS, JADEN Name: DICK DOMINGUEZ Care Team Personnel Name: DAY VELAZQUEZ MD Position: P4 Oncology Provider Med Service: DIGITAL PRINT OPERATOR-ONC Infusion Therapy Member Role: Primary Care Physician Address: Address: [address] [place] [address] [address] On[address] Name: DAY VELAZQUEZ MD Position: P4 Oncology Provider Med Service: DIGITAL PRINT OPERATOR-ONC Infusion Therapy Member Role: Primary Care Physician Address: Address: [address] [place] [address] Gynecologic On[address] Care Team Related Persons Name: AZAR ZAMORA Name: NAILS, JADEN Name: DICK DOMINGUEZ Care Team Personnel Name: DAY VELAZQUEZ MD Position: P4 Oncology Provider Member Role: Primary Care Physician Address: Address: [address] [place] [address] Gynecologic On[address] Care Team Related Persons Name: AZAR ZAMROA Address: [address] [id number] Name: NAILS, JADEN Name: DICK DOMINGUEZ Care Team Personnel Name: DAY VELAZQUEZ MD Position: P4 Oncology Provider Member Role: Primary Care Physician Address: Address: [address] [place] [address] [place] [address]- Care Team Related Persons Name: AZAR ZAMORA Address: Home [address] [facility] [id number] Name: NAILS, JADEN Name: DICK DOMINGUEZ Care Team Personnel Name: DAY VELAZQUEZ MD Position: P4 Oncology Provider Member Role: Primary Care Physician Address: Address: [address] [place] [address] [place] [address]- Care Team Related Persons Name: AZAR ZAMORA Address: Home [address] [facility], [place] [id number] Name: NAILS, JADEN Name: DICK DOMINGUEZ Care Team Personnel Name: DAY VELAZQUEZ MD Position: P4 Oncology Provider Member Role: Primary Care Physician Address: Address: [address] [place] [address] [place] [address]- Care Team Related Persons Name: AZAR ZAMORA Address: Home [address] [place], [place] [id number] Name: NAILS, JADEN Name: DICK DOMINGUEZ Care Team Personnel Name: LISA HUMPHREY DO Position: P4 Physician - General Surgery Member Role: Surgeon Address: Address: [address] [place] [address] [place] [address]- Name: DAY VELAZQUEZ MD Position: P4 Oncology Provider Member Role: Primary Care Physician Address: Address: [address] [place] [address] [place] [address]- Care Team Related Persons Name: AZAR ZAMORA Address: Home [address] [facility], [place] [id number] Name: NAILS, JADEN Name: DICK DOMINGUEZ Care Team Personnel Name: LISA HUMPHREY DO Position: P4 Physician - General Surgery Member Role: Surgeon Address: Address: [address] [place] [address] [place] [address]- Name: DAY VELAZQUEZ MD Position: P4 Oncology Provider Member Role: Primary Care Physician Address: Address: [address] [place] [address] [place] [address]- Care Team Related Persons Name: AZAR ZAMORA Address: Home [address] [place], [place] [id number] Name: MIKI BRUCE Name: DICK DOMINGUEZ Source Comments (unrecognize d section and content) In the event this informatio n is protected by the Federal Confidentiality of Alcohol and Drug Abuse Patient Records regulations: The Federal rules restrict any use of the information to criminally investigate or prosecute any alcohol or drug abuse patient.[facility] the event this information is protected by the Federal Confidentiality of Alcohol and Drug Abuse Patient Records regulations: The Federal rules restrict any use of the information to criminally investigate or prosecute any alcohol or drug abuse patient.[facility] HospitalIn the event this information is protected by the Federal Confidentiality of Alcohol and Drug Abuse Patient Records regulations: The Federal rules restrict any use of the information to criminally investigate or prosecute any alcohol or drug abuse patient.[facility] HospitalIn the event this information is protected by the Federal Confidentiality of Alcohol and Drug Abuse Patient Records regulations: The Federal rules restrict any use of the information to criminally investigate or prosecute any alcohol or drug abuse patient.[facility] HospitalIn the event this information is protected by the Federal Confidentiality of Alcohol and Drug Abuse Patient Records regulations: The Federal rules restrict any use of the information to criminally investigate or prosecute any alcohol or drug abuse patient.[facility] HospitalIn the event this information is protected by the Federal Confidentiality of Alcohol and Drug Abuse Patient Records regulations: The Federal rules restrict any use of the information to criminally investigate or prosecute any alcohol or drug abuse patient.[facility] HospitalIn the event this information is protected by the Federal Confidentiality of Alcohol and Drug Abuse Patient Records regulations: The Federal rules restrict any use of the information to criminally investigate or prosecute any alcohol or drug abuse patient.[facility] HospitalIn the event this information is protected by the Federal Confidentiality of Alcohol and Drug Abuse Patient Records regulations: The Federal rules restrict any use of the information to criminally investigate or prosecute any alcohol or drug abuse patient.[facility] HospitalIn the event this information is protected by the Federal Confidentiality of Alcohol and Drug Abuse Patient Records regulations: The Federal rules restrict any use of the information to criminally investigate or prosecute any alcohol or drug abuse patient.[facility] HospitalIn the event this information is protected by the Federal Confidentiality of Alcohol and Drug Abuse Patient Records regulations: The Federal rules restrict any use of the information to criminally investigate or prosecute any alcohol or drug abuse patient.[facility] HospitalIn the event this information is protected by the Federal Confidentiality of Alcohol and Drug Abuse Patient Records regulations: The Federal rules restrict any use of the information to criminally investigate or prosecute any alcohol or drug abuse patient.[facility] HospitalIn the event this information is protected by the Federal Confidentiality of Alcohol and Drug Abuse Patient Records regulations: The Federal rules restrict any use of the information to criminally investigate or prosecute any alcohol or drug abuse patient.[facility] HospitalIn the event this information is protected by the Federal Confidentiality of Alcohol and Drug Abuse Patient Records regulations: The Federal rules restrict any use of the information to criminally investigate or prosecute any alcohol or drug abuse patient.[facility] HospitalIn the event this information is protected by the Federal Confidentiality of Alcohol and Drug Abuse Patient Records regulations: The Federal rules restrict any use of the information to criminally investigate or prosecute any alcohol or drug abuse patient.[facility] HospitalIn the event this information is protected by the Federal Confidentiality of Alcohol and Drug Abuse Patient Records regulations: The Federal rules restrict any use of the information to criminally investigate or prosecute any alcohol or drug abuse patient.[facility] HospitalIn the event this information is protected by the Federal Confidentiality of Alcohol and Drug Abuse Patient Records regulations: The Federal rules restrict any use of the information to criminally investigate or prosecute any alcohol or drug abuse patient.[facility] HospitalIn the event this information is protected by the Federal Confidentiality of Alcohol and Drug Abuse Patient Records regulations: The Federal rules restrict any use of the information to criminally investigate or prosecute any alcohol or drug abuse patient.[facility] HospitalIn the event this information is protected by the Federal Confidentiality of Alcohol and Drug Abuse Patient Records regulations: The Federal rules restrict any use of the information to criminally investigate or prosecute any alcohol or drug abuse patient.[facility] HospitalIn the event this information is protected by the Federal Confidentiality of Alcohol and Drug Abuse Patient Records regulations: The Federal rules restrict any use of the information to criminally investigate or prosecute any alcohol or drug abuse patient.[facility] HospitalIn the event this information is protected by the Federal Confidentiality of Alcohol and Drug Abuse Patient Records regulations: The Federal rules restrict any use of the information to criminally investigate or prosecute any alcohol or drug abuse patient.[facility] HospitalIn the event this information is protected by the Federal Confidentiality of Alcohol and Drug Abuse Patient Records regulations: The Federal rules restrict any use of the information to criminally investigate or prosecute any alcohol or drug abuse patient.[facility] HospitalIn the event this information is protected by the Federal Confidentiality of Alcohol and Drug Abuse Patient Records regulations: The Federal rules restrict any use of the information to criminally investigate or prosecute any alcohol or drug abuse patient.[facility] HospitalIn the event this information is protected by the Federal Confidentiality of Alcohol and Drug Abuse Patient Records regulations: The Federal rules restrict any use of the information to criminally investigate or prosecute any alcohol or drug abuse patient.[facility] HospitalIn the event this information is protected by the Federal Confidentiality of Alcohol and Drug Abuse Patient Records regulations: The Federal rules restrict any use of the information to criminally investigate or prosecute any alcohol or drug abuse patient.[facility] HospitalIn the event this information is protected by the Federal Confidentiality of Alcohol and Drug Abuse Patient Records regulations: The Federal rules restrict any use of the information to criminally investigate or prosecute any alcohol or drug abuse patient.[facility] HospitalIn the event this information is protected by the Federal Confidentiality of Alcohol and Drug Abuse Patient Records regulations: The Federal rules restrict any use of the information to criminally investigate or prosecute any alcohol or drug abuse patient.[facility] HospitalIn the event this information is protected by the Federal Confidentiality of Alcohol and Drug Abuse Patient Records regulations: The Federal rules restrict any use of the information to criminally investigate or prosecute any alcohol or drug abuse patient.[facility] HospitalIn the event this information is protected by the Federal Confidentiality of Alcohol and Drug Abuse Patient Records regulations: The Federal rules restrict any use of the information to criminally investigate or prosecute any alcohol or drug abuse patient.[facility] HospitalIn the event this information is protected by the Federal Confidentiality of Alcohol and Drug Abuse Patient Records regulations: The Federal rules restrict any use of the information to criminally investigate or prosecute any alcohol or drug abuse patient.[facility] HospitalIn the event this information is protected by the Federal Confidentiality of Alcohol and Drug Abuse Patient Records regulations: The Federal rules restrict any use of the information to criminally investigate or prosecute any alcohol or drug abuse patient.[facility] HospitalIn the event this information is protected by the Federal Confidentiality of Alcohol and Drug Abuse Patient Records regulations: The Federal rules restrict any use of the information to criminally investigate or prosecute any alcohol or drug abuse patient.[facility] HospitalIn the event this information is protected by the Federal Confidentiality of Alcohol and Drug Abuse Patient Records regulations: The Federal rules restrict any use of the information to criminally investigate or prosecute any alcohol or drug abuse patient.[facility] HospitalIn the event this information is protected by the Federal Confidentiality of Alcohol and Drug Abuse Patient Records regulations: The Federal rules restrict any use of the information to criminally investigate or prosecute any alcohol or drug abuse patient.[facility] HospitalIn the event this information is protected by the Federal Confidentiality of Alcohol and Drug Abuse Patient Records regulations: The Federal rules restrict any use of the information to criminally investigate or prosecute any alcohol or drug abuse patient.[facility] HospitalIn the event this information is protected by the Federal Confidentiality of Alcohol and Drug Abuse Patient Records regulations: The Federal rules restrict any use of the information to criminally investigate or prosecute any alcohol or drug abuse patient.[facility] HospitalIn the event this information is protected by the Federal Confidentiality of Alcohol and Drug Abuse Patient Records regulations: The Federal rules restrict any use of the information to criminally investigate or prosecute any alcohol or drug abuse patient.[facility] HospitalIn the event this information is protected by the Federal Confidentiality of Alcohol and Drug Abuse Patient Records regulations: The Federal rules restrict any use of the information to criminally investigate or prosecute any alcohol or drug abuse patient.[facility] HospitalIn the event this information is protected by the Federal Confidentiality of Alcohol and Drug Abuse Patient Records regulations: The Federal rules restrict any use of the information to criminally investigate or prosecute any alcohol or drug abuse patient.[facility] HospitalIn the event this information is protected by the Federal Confidentiality of Alcohol and Drug Abuse Patient Records regulations: The Federal rules restrict any use of the information to criminally investigate or prosecute any alcohol or drug abuse patient.[facility] HospitalIn the event this information is protected by the Federal Confidentiality of Alcohol and Drug Abuse Patient Records regulations: The Federal rules restrict any use of the information to criminally investigate or prosecute any alcohol or drug abuse patient.[facility] HospitalIn the event this information is protected by the Federal Confidentiality of Alcohol and Drug Abuse Patient Records regulations: The Federal rules restrict any use of the information to criminally investigate or prosecute any alcohol or drug abuse patient.[facility] HospitalIn the event this information is protected by the Federal Confidentiality of Alcohol and Drug Abuse Patient Records regulations: The Federal rules restrict any use of the information to criminally investigate or prosecute any alcohol or drug abuse patient.[facility] HospitalIn the event this information is protected by the Federal Confidentiality of Alcohol and Drug Abuse Patient Records regulations: The Federal rules restrict any use of the information to criminally investigate or prosecute any alcohol or drug abuse patient.[facility] HospitalIn the event this information is protected by the Federal Confidentiality of Alcohol and Drug Abuse Patient Records regulations: The Federal rules restrict any use of the information to criminally investigate or prosecute any alcohol or drug abuse patient.[facility] HospitalIn the event this information is protected by the Federal Confidentiality of Alcohol and Drug Abuse Patient Records regulations: The Federal rules restrict any use of the information to criminally investigate or prosecute any alcohol or drug abuse patient.[facility] HospitalIn the event this information is protected by the Federal Confidentiality of Alcohol and Drug Abuse Patient Records regulations: The Federal rules restrict any use of the information to criminally investigate or prosecute any alcohol or drug abuse patient.[facility] HospitalIn the event this information is protected by the Federal Confidentiality of Alcohol and Drug Abuse Patient Records regulations: The Federal rules restrict any use of the information to criminally investigate or prosecute any alcohol or drug abuse patient.[facility] HospitalIn the event this information is protected by the Federal Confidentiality of Alcohol and Drug Abuse Patient Records regulations: The Federal rules restrict any use of the information to criminally investigate or prosecute any alcohol or drug abuse patient.[facility] HospitalIn the event this information is protected by the Federal Confidentiality of Alcohol and Drug Abuse Patient Records regulations: The Federal rules restrict any use of the information to criminally investigate or prosecute any alcohol or drug abuse patient.[facility] HospitalIn the event this information is protected by the Federal Confidentiality of Alcohol and Drug Abuse Patient Records regulations: The Federal rules restrict any use of the information to criminally investigate or prosecute any alcohol or drug abuse patient.[facility] HospitalIn the event this information is protected by the Federal Confidentiality of Alcohol and Drug Abuse Patient Records regulations: The Federal rules restrict any use of the information to criminally investigate or prosecute any alcohol or drug abuse patient.[facility] HospitalIn the event this information is protected by the Federal Confidentiality of Alcohol and Drug Abuse Patient Records regulations: The Federal rules restrict any use of the information to criminally investigate or prosecute any alcohol or drug abuse patient.[facility] HospitalIn the event this information is protected by the Federal Confidentiality of Alcohol and Drug Abuse Patient Records regulations: The Federal rules restrict any use of the information to criminally investigate or prosecute any alcohol or drug abuse patient.[facility] HospitalIn the event this information is protected by the Federal Confidentiality of Alcohol and Drug Abuse Patient Records regulations: The Federal rules restrict any use of the information to criminally investigate or prosecute any alcohol or drug abuse patient.[facility] HospitalIn the event this information is protected by the Federal Confidentiality of Alcohol and Drug Abuse Patient Records regulations: The Federal rules restrict any use of the information to criminally investigate or prosecute any alcohol or drug abuse patient.[facility] HospitalIn the event this information is protected by the Federal Confidentiality of Alcohol and Drug Abuse Patient Records regulations: The Federal rules restrict any use of the information to criminally investigate or prosecute any alcohol or drug abuse patient.[facility] HospitalIn the event this information is protected by the Federal Confidentiality of Alcohol and Drug Abuse Patient Records regulations: The Federal rules restrict any use of the information to criminally investigate or prosecute any alcohol or drug abuse patient.[facility] HospitalIn the event this information is protected by the Federal Confidentiality of Alcohol and Drug Abuse Patient Records regulations: The Federal rules restrict any use of the information to criminally investigate or prosecute any alcohol or drug abuse patient.[facility] HospitalIn the event this information is protected by the Federal Confidentiality of Alcohol and Drug Abuse Patient Records regulations: The Federal rules restrict any use of the information to criminally investigate or prosecute any alcohol or drug abuse patient.[facility] HospitalIn the event this information is protected by the Federal Confidentiality of Alcohol and Drug Abuse Patient Records regulations: The Federal rules restrict any use of the information to criminally investigate or prosecute any alcohol or drug abuse patient.[facility] HospitalIn the event this information is protected by the Federal Confidentiality of Alcohol and Drug Abuse Patient Records regulations: The Federal rules restrict any use of the information to criminally investigate or prosecute any alcohol or drug abuse patient.[facility] HospitalIn the event this information is protected by the Federal Confidentiality of Alcohol and Drug Abuse Patient Records regulations: The Federal rules restrict any use of the information to criminally investigate or prosecute any alcohol or drug abuse patient.[facility] HospitalIn the event this information is protected by the Federal Confidentiality of Alcohol and Drug Abuse Patient Records regulations: The Federal rules restrict any use of the information to criminally investigate or prosecute any alcohol or drug abuse patient.[facility] HospitalIn the event this information is protected by the Federal Confidentiality of Alcohol and Drug Abuse Patient Records regulations: The Federal rules restrict any use of the information to criminally investigate or prosecute any alcohol or drug abuse patient.[facility] HospitalIn the event this information is protected by the Federal Confidentiality of Alcohol and Drug Abuse Patient Records regulations: The Federal rules restrict any use of the information to criminally investigate or prosecute any alcohol or drug abuse patient.[facility] HospitalIn the event this information is protected by the Federal Confidentiality of Alcohol and Drug Abuse Patient Records regulations: The Federal rules restrict any use of the information to criminally investigate or prosecute any alcohol or drug abuse patient.[facility] HospitalIn the event this information is protected by the Federal Confidentiality of Alcohol and Drug Abuse Patient Records regulations: The Federal rules restrict any use of the information to criminally investigate or prosecute any alcohol or drug abuse patient.[facility] HospitalIn the event this information is protected by the Federal Confidentiality of Alcohol and Drug Abuse Patient Records regulations: The Federal rules restrict any use of the information to criminally investigate or prosecute any alcohol or drug abuse patient.[facility] HospitalIn the event this information is protected by the Federal Confidentiality of Alcohol and Drug Abuse Patient Records regulations: The Federal rules restrict any use of the information to criminally investigate or prosecute any alcohol or drug abuse patient.[facility] HospitalIn the event this information is protected by the Federal Confidentiality of Alcohol and Drug Abuse Patient Records regulations: The Federal rules restrict any use of the information to criminally investigate or prosecute any alcohol or drug abuse patient.[facility] HospitalIn the event this information is protected by the Federal Confidentiality of Alcohol and Drug Abuse Patient Records regulations: The Federal rules restrict any use of the information to criminally investigate or prosecute any alcohol or drug abuse patient.[facility] HospitalIn the event this information is protected by the Federal Confidentiality of Alcohol and Drug Abuse Patient Records regulations: The Federal rules restrict any use of the information to criminally investigate or prosecute any alcohol or drug abuse patient.[facility] HospitalIn the event this information is protected by the Federal Confidentiality of Alcohol and Drug Abuse Patient Records regulations: The Federal rules restrict any use of the information to criminally investigate or prosecute any alcohol or drug abuse patient.[facility] HospitalIn the event this information is protected by the Federal Confidentiality of Alcohol and Drug Abuse Patient Records regulations: The Federal rules restrict any use of the information to criminally investigate or prosecute any alcohol or drug abuse patient.[facility] HospitalIn the event this information is protected by the Federal Confidentiality of Alcohol and Drug Abuse Patient Records regulations: The Federal rules restrict any use of the information to criminally investigate or prosecute any alcohol or drug abuse patient.[facility] HospitalIn the event this information is protected by the Federal Confidentiality of Alcohol and Drug Abuse Patient Records regulations: The Federal rules restrict any use of the information to criminally investigate or prosecute any alcohol or drug abuse patient.[facility] HospitalIn the event this information is protected by the Federal Confidentiality of Alcohol and Drug Abuse Patient Records regulations: The Federal rules restrict any use of the information to criminally investigate or prosecute any alcohol or drug abuse patient.[facility] HospitalIn the event this information is protected by the Federal Confidentiality of Alcohol and Drug Abuse Patient Records regulations: The Federal rules restrict any use of the information to criminally investigate or prosecute any alcohol or drug abuse patient.[facility] HospitalIn the event this information is protected by the Federal Confidentiality of Alcohol and Drug Abuse Patient Records regulations: The Federal rules restrict any use of the information to criminally investigate or prosecute any alcohol or drug abuse patient.[facility] HospitalIn the event this information is protected by the Federal Confidentiality of Alcohol and Drug Abuse Patient Records regulations: The Federal rules restrict any use of the information to criminally investigate or prosecute any alcohol or drug abuse patient.[facility] HospitalIn the event this information is protected by the Federal Confidentiality of Alcohol and Drug Abuse Patient Records regulations: The Federal rules restrict any use of the information to criminally investigate or prosecute any alcohol or drug abuse patient.[facility] HospitalIn the event this information is protected by the Federal Confidentiality of Alcohol and Drug Abuse Patient Records regulations: The Federal rules restrict any use of the information to criminally investigate or prosecute any alcohol or drug abuse patient.[facility] HospitalIn the event this information is protected by the Federal Confidentiality of Alcohol and Drug Abuse Patient Records regulations: The Federal rules restrict any use of the information to criminally investigate or prosecute any alcohol or drug abuse patient.[facility] HospitalIn the event this information is protected by the Federal Confidentiality of Alcohol and Drug Abuse Patient Records regulations: The Federal rules restrict any use of the information to criminally investigate or prosecute any alcohol or drug abuse patient.[facility] HospitalIn the event this information is protected by the Federal Confidentiality of Alcohol and Drug Abuse Patient Records regulations: The Federal rules restrict any use of the information to criminally investigate or prosecute any alcohol or drug abuse patient.[facility] HospitalIn the event this information is protected by the Federal Confidentiality of Alcohol and Drug Abuse Patient Records regulations: The Federal rules restrict any use of the information to criminally investigate or prosecute any alcohol or drug abuse patient.[facility] HospitalIn the event this information is protected by the Federal Confidentiality of Alcohol and Drug Abuse Patient Records regulations: The Federal rules restrict any use of the information to criminally investigate or prosecute any alcohol or drug abuse patient.[facility] HospitalIn the event this information is protected by the Federal Confidentiality of Alcohol and Drug Abuse Patient Records regulations: The Federal rules restrict any use of the information to criminally investigate or prosecute any alcohol or drug abuse patient.[facility] HospitalIn the event this information is protected by the Federal Confidentiality of Alcohol and Drug Abuse Patient Records regulations: The Federal rules restrict any use of the information to criminally investigate or prosecute any alcohol or drug abuse patient.[facility] HospitalIn the event this information is protected by the Federal Confidentiality of Alcohol and Drug Abuse Patient Records regulations: The Federal rules restrict any use of the information to criminally investigate or prosecute any alcohol or drug abuse patient.[facility] HospitalIn the event this information is protected by the Federal Confidentiality of Alcohol and Drug Abuse Patient Records regulations: The Federal rules restrict any use of the information to criminally investigate or prosecute any alcohol or drug abuse patient.[facility] HospitalIn the event this information is protected by the Federal Confidentiality of Alcohol and Drug Abuse Patient Records regulations: The Federal rules restrict any use of the information to criminally investigate or prosecute any alcohol or drug abuse patient.[facility] HospitalIn the event this information is protected by the Federal Confidentiality of Alcohol and Drug Abuse Patient Records regulations: The Federal rules restrict any use of the information to criminally investigate or prosecute any alcohol or drug abuse patient.[facility] HospitalIn the event this information is protected by the Federal Confidentiality of Alcohol and Drug Abuse Patient Records regulations: The Federal rules restrict any use of the information to criminally investigate or prosecute any alcohol or drug abuse patient.[facility] HospitalIn the event this information is protected by the Federal Confidentiality of Alcohol and Drug Abuse Patient Records regulations: The Federal rules restrict any use of the information to criminally investigate or prosecute any alcohol or drug abuse patient.[facility] HospitalIn the event this information is protected by the Federal Confidentiality of Alcohol and Drug Abuse Patient Records regulations: The Federal rules restrict any use of the information to criminally investigate or prosecute any alcohol or drug abuse patient.[facility] HospitalIn the event this information is protected by the Federal Confidentiality of Alcohol and Drug Abuse Patient Records regulations: The Federal rules restrict any use of the information to criminally investigate or prosecute any alcohol or drug abuse patient.[facility] HospitalIn the event this information is protected by the Federal Confidentiality of Alcohol and Drug Abuse Patient Records regulations: The Federal rules restrict any use of the information to criminally investigate or prosecute any alcohol or drug abuse patient.[facility] HospitalIn the event this information is protected by the Federal Confidentiality of Alcohol and Drug Abuse Patient Records regulations: The Federal rules restrict any use of the information to criminally investigate or prosecute any alcohol or drug abuse patient.[facility] HospitalIn the event this information is protected by the Federal Confidentiality of Alcohol and Drug Abuse Patient Records regulations: The Federal rules restrict any use of the information to criminally investigate or prosecute any alcohol or drug abuse patient.[facility] HospitalIn the event this information is protected by the Federal Confidentiality of Alcohol and Drug Abuse Patient Records regulations: The Federal rules restrict any use of the information to criminally investigate or prosecute any alcohol or drug abuse patient.[facility] HospitalIn the event this information is protected by the Federal Confidentiality of Alcohol and Drug Abuse Patient Records regulations: The Federal rules restrict any use of the information to criminally investigate or prosecute any alcohol or drug abuse patient.[facility] HospitalIn the event this information is protected by the Federal Confidentiality of Alcohol and Drug Abuse Patient Records regulations: The Federal rules restrict any use of the information to criminally investigate or prosecute any alcohol or drug abuse patient.[facility] HospitalIn the event this information is protected by the Federal Confidentiality of Alcohol and Drug Abuse Patient Records regulations: The Federal rules restrict any use of the information to criminally investigate or prosecute any alcohol or drug abuse patient.[facility] HospitalIn the event this information is protected by the Federal Confidentiality of Alcohol and Drug Abuse Patient Records regulations: The Federal rules restrict any use of the information to criminally investigate or prosecute any alcohol or drug abuse patient.[facility] HospitalIn the event this information is protected by the Federal Confidentiality of Alcohol and Drug Abuse Patient Records regulations: The Federal rules restrict any use of the information to criminally investigate or prosecute any alcohol or drug abuse patient.[facility] HospitalIn the event this information is protected by the Federal Confidentiality of Alcohol and Drug Abuse Patient Records regulations: The Federal rules restrict any use of the information to criminally investigate or prosecute any alcohol or drug abuse patient.[facility] HospitalIn the event this information is protected by the Federal Confidentiality of Alcohol and Drug Abuse Patient Records regulations: The Federal rules restrict any use of the information to criminally investigate or prosecute any alcohol or drug abuse patient.[facility] HospitalIn the event this information is protected by the Federal Confidentiality of Alcohol and Drug Abuse Patient Records regulations: The Federal rules restrict any use of the information to criminally investigate or prosecute any alcohol or drug abuse patient.[facility] HospitalIn the event this information is protected by the Federal Confidentiality of Alcohol and Drug Abuse Patient Records regulations: The Federal rules restrict any use of the information to criminally investigate or prosecute any alcohol or drug abuse patient.[facility] HospitalIn the event this information is protected by the Federal Confidentiality of Alcohol and Drug Abuse Patient Records regulations: The Federal rules restrict any use of the information to criminally investigate or prosecute any alcohol or drug abuse patient.[facility] HospitalIn the event this information is protected by the Federal Confidentiality of Alcohol and Drug Abuse Patient Records regulations: The Federal rules restrict any use of the information to criminally investigate or prosecute any alcohol or drug abuse patient.[facility] HospitalIn the event this information is protected by the Federal Confidentiality of Alcohol and Drug Abuse Patient Records regulations: The Federal rules restrict any use of the information to criminally investigate or prosecute any alcohol or drug abuse patient.[facility] HospitalIn the event this information is protected by the Federal Confidentiality of Alcohol and Drug Abuse Patient Records regulations: The Federal rules restrict any use of the information to criminally investigate or prosecute any alcohol or drug abuse patient.[facility] HospitalIn the event this information is protected by the Federal Confidentiality of Alcohol and Drug Abuse Patient Records regulations: The Federal rules restrict any use of the information to criminally investigate or prosecute any alcohol or drug abuse patient.[facility] HospitalIn the event this information is protected by the Federal Confidentiality of Alcohol and Drug Abuse Patient Records regulations: The Federal rules restrict any use of the information to criminally investigate or prosecute any alcohol or drug abuse patient.[facility] HospitalIn the event this information is protected by the Federal Confidentiality of Alcohol and Drug Abuse Patient Records regulations: The Federal rules restrict any use of the information to criminally investigate or prosecute any alcohol or drug abuse patient.[facility] HospitalIn the event this information is protected by the Federal Confidentiality of Alcohol and Drug Abuse Patient Records regulations: The Federal rules restrict any use of the information to criminally investigate or prosecute any alcohol or drug abuse patient.[facility] HospitalIn the event this information is protected by the Federal Confidentiality of Alcohol and Drug Abuse Patient Records regulations: The Federal rules restrict any use of the information to criminally investigate or prosecute any alcohol or drug abuse patient.[facility] HospitalIn the event this information is protected by the Federal Confidentiality of Alcohol and Drug Abuse Patient Records regulations: The Federal rules restrict any use of the information to criminally investigate or prosecute any alcohol or drug abuse patient.[facility] HospitalIn the event this information is protected by the Federal Confidentiality of Alcohol and Drug Abuse Patient Records regulations: The Federal rules restrict any use of the information to criminally investigate or prosecute any alcohol or drug abuse patient.[facility] HospitalIn the event this information is protected by the Federal Confidentiality of Alcohol and Drug Abuse Patient Records regulations: The Federal rules restrict any use of the information to criminally investigate or prosecute any alcohol or drug abuse patient.[facility] HospitalIn the event this information is protected by the Federal Confidentiality of Alcohol and Drug Abuse Patient Records regulations: The Federal rules restrict any use of the information to criminally investigate or prosecute any alcohol or drug abuse patient.[facility] HospitalIn the event this information is protected by the Federal Confidentiality of Alcohol and Drug Abuse Patient Records regulations: The Federal rules restrict any use of the information to criminally investigate or prosecute any alcohol or drug abuse patient.[facility] HospitalIn the event this information is protected by the Federal Confidentiality of Alcohol and Drug Abuse Patient Records regulations: The Federal rules restrict any use of the information to criminally investigate or prosecute any alcohol or drug abuse patient.[facility] HospitalIn the event this information is protected by the Federal Confidentiality of Alcohol and Drug Abuse Patient Records regulations: The Federal rules restrict any use of the information to criminally investigate or prosecute any alcohol or drug abuse patient.[facility] HospitalIn the event this information is protected by the Federal Confidentiality of Alcohol and Drug Abuse Patient Records regulations: The Federal rules restrict any use of the information to criminally investigate or prosecute any alcohol or drug abuse patient.[facility] HospitalIn the event this information is protected by the Federal Confidentiality of Alcohol and Drug Abuse Patient Records regulations: The Federal rules restrict any use of the information to criminally investigate or prosecute any alcohol or drug abuse patient.[facility] HospitalIn the event this information is protected by the Federal Confidentiality of Alcohol and Drug Abuse Patient Records regulations: The Federal rules restrict any use of the information to criminally investigate or prosecute any alcohol or drug abuse patient.[facility] HospitalIn the event this information is protected by the Federal Confidentiality of Alcohol and Drug Abuse Patient Records regulations: The Federal rules restrict any use of the information to criminally investigate or prosecute any alcohol or drug abuse patient.[facility] HospitalIn the event this information is protected by the Federal Confidentiality of Alcohol and Drug Abuse Patient Records regulations: The Federal rules restrict any use of the information to criminally investigate or prosecute any alcohol or drug abuse patient.[facility] HospitalIn the event this information is protected by the Federal Confidentiality of Alcohol and Drug Abuse Patient Records regulations: The Federal rules restrict any use of the information to criminally investigate or prosecute any alcohol or drug abuse patient.[facility] HospitalIn the event this information is protected by the Federal Confidentiality of Alcohol and Drug Abuse Patient Records regulations: The Federal rules restrict any use of the information to criminally investigate or prosecute any alcohol or drug abuse patient.[facility] HospitalIn the event this information is protected by the Federal Confidentiality of Alcohol and Drug Abuse Patient Records regulations: The Federal rules restrict any use of the information to criminally investigate or prosecute any alcohol or drug abuse patient.[facility] HospitalIn the event this information is protected by the Federal Confidentiality of Alcohol and Drug Abuse Patient Records regulations: The Federal rules restrict any use of the information to criminally investigate or prosecute any alcohol or drug abuse patient.[facility] HospitalIn the event this information is protected by the Federal Confidentiality of Alcohol and Drug Abuse Patient Records regulations: The Federal rules restrict any use of the information to criminally investigate or prosecute any alcohol or drug abuse patient.[facility] HospitalIn the event this information is protected by the Federal Confidentiality of Alcohol and Drug Abuse Patient Records regulations: The Federal rules restrict any use of the information to criminally investigate or prosecute any alcohol or drug abuse patient.[facility] HospitalIn the event this information is protected by the Federal Confidentiality of Alcohol and Drug Abuse Patient Records regulations: The Federal rules restrict any use of the information to criminally investigate or prosecute any alcohol or drug abuse patient.[facility] HospitalIn the event this information is protected by the Federal Confidentiality of Alcohol and Drug Abuse Patient Records regulations: The Federal rules restrict any use of the information to criminally investigate or prosecute any alcohol or drug abuse patient.[facility] HospitalIn the event this information is protected by the Federal Confidentiality of Alcohol and Drug Abuse Patient Records regulations: The Federal rules restrict any use of the information to criminally investigate or prosecute any alcohol or drug abuse patient.[facility] HospitalIn the event this information is protected by the Federal Confidentiality of Alcohol and Drug Abuse Patient Records regulations: The Federal rules restrict any use of the information to criminally investigate or prosecute any alcohol or drug abuse patient.[facility] HospitalIn the event this information is protected by the Federal Confidentiality of Alcohol and Drug Abuse Patient Records regulations: The Federal rules restrict any use of the information to criminally investigate or prosecute any alcohol or drug abuse patient.[facility] HospitalIn the event this information is protected by the Federal Confidentiality of Alcohol and Drug Abuse Patient Records regulations: The Federal rules restrict any use of the information to criminally investigate or prosecute any alcohol or drug abuse patient.[facility] HospitalIn the event this information is protected by the Federal Confidentiality of Alcohol and Drug Abuse Patient Records regulations: The Federal rules restrict any use of the information to criminally investigate or prosecute any alcohol or drug abuse patient.[facility] HospitalIn the event this information is protected by the Federal Confidentiality of Alcohol and Drug Abuse Patient Records regulations: The Federal rules restrict any use of the information to criminally investigate or prosecute any alcohol or drug abuse patient.[facility] HospitalIn the event this information is protected by the Federal Confidentiality of Alcohol and Drug Abuse Patient Records regulations: The Federal rules restrict any use of the information to criminally investigate or prosecute any alcohol or drug abuse patient.[facility] HospitalIn the event this information is protected by the Federal Confidentiality of Alcohol and Drug Abuse Patient Records regulations: The Federal rules restrict any use of the information to criminally investigate or prosecute any alcohol or drug abuse patient.[facility] HospitalIn the event this information is protected by the Federal Confidentiality of Alcohol and Drug Abuse Patient Records regulations: The Federal rules restrict any use of the information to criminally investigate or prosecute any alcohol or drug abuse patient.[facility] HospitalIn the event this information is protected by the Federal Confidentiality of Alcohol and Drug Abuse Patient Records regulations: The Federal rules restrict any use of the information to criminally investigate or prosecute any alcohol or drug abuse patient.[facility] HospitalIn the event this information is protected by the Federal Confidentiality of Alcohol and Drug Abuse Patient Records regulations: The Federal rules restrict any use of the information to criminally investigate or prosecute any alcohol or drug abuse patient.[facility] HospitalIn the event this information is protected by the Federal Confidentiality of Alcohol and Drug Abuse Patient Records regulations: The Federal rules restrict any use of the information to criminally investigate or prosecute any alcohol or drug abuse patient.[facility] HospitalIn the event this information is protected by the Federal Confidentiality of Alcohol and Drug Abuse Patient Records regulations: The Federal rules restrict any use of the information to criminally investigate or prosecute any alcohol or drug abuse patient.[facility] HospitalIn the event this information is protected by the Federal Confidentiality of Alcohol and Drug Abuse Patient Records regulations: The Federal rules restrict any use of the information to criminally investigate or prosecute any alcohol or drug abuse patient.[facility] HospitalIn the event this information is protected by the Federal Confidentiality of Alcohol and Drug Abuse Patient Records regulations: The Federal rules restrict any use of the information to criminally investigate or prosecute any alcohol or drug abuse patient.[facility] HospitalIn the event this information is protected by the Federal Confidentiality of Alcohol and Drug Abuse Patient Records regulations: The Federal rules restrict any use of the information to criminally investigate or prosecute any alcohol or drug abuse patient.[facility] HospitalIn the event this information is protected by the Federal Confidentiality of Alcohol and Drug Abuse Patient Records regulations: The Federal rules restrict any use of the information to criminally investigate or prosecute any alcohol or drug abuse patient.[facility] HospitalIn the event this information is protected by the Federal Confidentiality of Alcohol and Drug Abuse Patient Records regulations: The Federal rules restrict any use of the information to criminally investigate or prosecute any alcohol or drug abuse patient.[facility] HospitalIn the event this information is protected by the Federal Confidentiality of Alcohol and Drug Abuse Patient Records regulations: The Federal rules restrict any use of the information to criminally investigate or prosecute any alcohol or drug abuse patient.[facility] HospitalIn the event this information is protected by the Federal Confidentiality of Alcohol and Drug Abuse Patient Records regulations: The Federal rules restrict any use of the information to criminally investigate or prosecute any alcohol or drug abuse patient.[facility] HospitalIn the event this information is protected by the Federal Confidentiality of Alcohol and Drug Abuse Patient Records regulations: The Federal rules restrict any use of the information to criminally investigate or prosecute any alcohol or drug abuse patient.[facility] HospitalIn the event this information is protected by the Federal Confidentiality of Alcohol and Drug Abuse Patient Records regulations: The Federal rules restrict any use of the information to criminally investigate or prosecute any alcohol or drug abuse patient.[facility] HospitalIn the event this information is protected by the Federal Confidentiality of Alcohol and Drug Abuse Patient Records regulations: The Federal rules restrict any use of the information to criminally investigate or prosecute any alcohol or drug abuse patient.[facility] HospitalIn the event this information is protected by the Federal Confidentiality of Alcohol and Drug Abuse Patient Records regulations: The Federal rules restrict any use of the information to criminally investigate or prosecute any alcohol or drug abuse patient.[facility] HospitalIn the event this information is protected by the Federal Confidentiality of Alcohol and Drug Abuse Patient Records regulations: The Federal rules restrict any use of the information to criminally investigate or prosecute any alcohol or drug abuse patient.[facility] HospitalIn the event this information is protected by the Federal Confidentiality of Alcohol and Drug Abuse Patient Records regulations: The Federal rules restrict any use of the information to criminally investigate or prosecute any alcohol or drug abuse patient.[facility] HospitalIn the event this information is protected by the Federal Confidentiality of Alcohol and Drug Abuse Patient Records regulations: The Federal rules restrict any use of the information to criminally investigate or prosecute any alcohol or drug abuse patient.[facility] HospitalIn the event this information is protected by the Federal Confidentiality of Alcohol and Drug Abuse Patient Records regulations: The Federal rules restrict any use of the information to criminally investigate or prosecute any alcohol or drug abuse patient.[facility] HospitalIn the event this information is protected by the Federal Confidentiality of Alcohol and Drug Abuse Patient Records regulations: The Federal rules restrict any use of the information to criminally investigate or prosecute any alcohol or drug abuse patient.[facility] HospitalIn the event this information is protected by the Federal Confidentiality of Alcohol and Drug Abuse Patient Records regulations: The Federal rules restrict any use of the information to criminally investigate or prosecute any alcohol or drug abuse patient.[facility] HospitalIn the event this information is protected by the Federal Confidentiality of Alcohol and Drug Abuse Patient Records regulations: The Federal rules restrict any use of the information to criminally investigate or prosecute any alcohol or drug abuse patient.[facility] HospitalIn the event this information is protected by the Federal Confidentiality of Alcohol and Drug Abuse Patient Records regulations: The Federal rules restrict any use of the information to criminally investigate or prosecute any alcohol or drug abuse patient.[facility] HospitalIn the event this information is protected by the Federal Confidentiality of Alcohol and Drug Abuse Patient Records regulations: The Federal rules restrict any use of the information to criminally investigate or prosecute any alcohol or drug abuse patient.[facility] HospitalIn the event this information is protected by the Federal Confidentiality of Alcohol and Drug Abuse Patient Records regulations: The Federal rules restrict any use of the information to criminally investigate or prosecute any alcohol or drug abuse patient.[facility] HospitalIn the event this information is protected by the Federal Confidentiality of Alcohol and Drug Abuse Patient Records regulations: The Federal rules restrict any use of the information to criminally investigate or prosecute any alcohol or drug abuse patient.[facility] HospitalIn the event this information is protected by the Federal Confidentiality of Alcohol and Drug Abuse Patient Records regulations: The Federal rules restrict any use of the information to criminally investigate or prosecute any alcohol or drug abuse patient.[facility] HospitalIn the event this information is protected by the Federal Confidentiality of Alcohol and Drug Abuse Patient Records regulations: The Federal rules restrict any use of the information to criminally investigate or prosecute any alcohol or drug abuse patient.[facility] HospitalIn the event this information is protected by the Federal Confidentiality of Alcohol and Drug Abuse Patient Records regulations: The Federal rules restrict any use of the information to criminally investigate or prosecute any alcohol or drug abuse patient.[facility] Goals (unrecognized section and content) Goals may be documented in a n alternate section FOR RECORDS PERTAINING TO PATIENTS WHO ARE OR HAVE BEEN ENROLLED IN A CHEMICAL DEPENDENCY/SUBSTANCEABUSE PROGRAM, SOME INFORMATION MAY BE OMITTED. This clinical summary was aggregated from multiple sources. Caution should be exercised in using it in the provision of clinical care. This summary normalizes information from multiple sources, and as a consequence, information in this document may materially change the coding, format and clinical context of patient data. In addition, data may be omitted in some cases. CLINICAL DECISIONS SHOULD BE BASED ON THE PRIMARY CLINICAL RECORDS. [facility] provides no warranty or guarantee of the accuracy or completeness of information in this document.
== END 2025-06-18 18:33 | disposition home or self-care (01) ==
LOC: ED 18:30
PROVIDERS: Emergency Provider Student in an Organized Health Care Education/Training Program; PCP Family Medicine; Visit Provider Student in an Organized Health Care Education/Training Program
DX: S61.211A Laceration without foreign body of left index finger without damage to nail, initial encounter (principal); W26.0XXA Contact with knife, initial encounter; Z86.718 Personal history of other venous thrombosis and embolism; Z87.891 Personal history of nicotine dependence
CPT/HCPCS: 12001; 99282

== ENCOUNTER 2025-09-05 20:21 | Emergency (ER) | payer MEDICAID, SELFPAY ==
[2025-09-05 20:21] VITALS: BP 140/83; PULSE 90; RESP 18; TEMP 36.4; O2SAT 98; BMI 48.9
--- OUTSIDE RECORDS SUMMARY | 2025-09-05 20:59 | XMS RPT_ITS | CCD ---
Author Organization [facility] Care Team Providers Care Portainer Operator Name Role Phone Poornima Jimenez MD Unavailable Unavailable Primary Care Provider UnavailDAY Romero MD Primary Care Physician Julia Collado Unavailable Roverto Diane MD Primary Care Provider Unknown, Referring Provider Unavailable Unav ailable Roverto Diane MD Primary Care Provider Roverto Diane MD Primary Care Provider [phone] DAY VELAZQUEZ MD Primary Care Physician Darryl [...] Unavailable Patient, Unavailable Referring Unavailable Dr. Darryl Rodriguez Admitting Unavailable Roverto Diane MD Primary Care Provider LISA HUMPHREY DO Attending Unavailable DAY VELAZQUEZ MD Primary Care Unavailable QUINTON PINO Attending Unavailable DAY VELAZQUEZ MD Primary Care Unavailable LISA HUMPHREY DO Attending Unavailable DAY VELAZQUEZ MD Primary Care Unavailable DAY VELAZQUEZ MD Attending Unavailable DAY VELAZQUEZ MD Primary Care Unavailable LISA HUMPHREY DO Attending Unavailable VELAZQUEZ MD, SAREENA Primary Care Unavailable GABRIELA CERDA, DARREL Consulting Unavailable EMERSON CERDA, BUDDY Arenas Consulting Unavailable LISA HUMPHREY DO Attending Unavailable CAROLINE CERDA, DAY Primary Care Unavailable CAROLINE CERDA, DAY Attending Unavailable CAROLINE CERDA, DAY Primary Care Unavailable YARA OGDEN MD Consulting Unavailable CAROLINE CERDA, DAY Admitting Unavailable NICK CERDA, MIKI Consulting Unavailable NAKUL CERDA, JUANJO Murphy Consulting Unavailable CAROLINE CERDA, DAY Attending Unavailable CAROLINE CERDA, DAY Primary Care Unavailable CAROLINE CERDA, DAY Attending Unavailable CAROLINE CERDA, SARMARY ALICE Primary Care Unavailable CAROLINE CERDA, DAY Attending Unavailable CAROLINE CERDA, DAY Primary Care Unavailable CAROLINE CERDA, ADY Attending Unavailable CAROLINE CERDA, DAY Primary Care Unavailable CAROLINE CERDA, DAY Attending Unavailable CAROLINE CERDA, SARMARY ALICE Primary Care Unavailable CAROLINE CERDA, DAY Attending Unavailable CAROLINE CERDA, SAREENA Primary Care Unavailable LISA HUMPHREY DO Attending Unavailable CAROLINE CERDA, SARJOHANNAA Primary Care Unavailable CAROLINE CERDA, DAY Attending Unavailable CAROLINE CERDA, DAY Primary Care Unavailable CAROLINE CERDA, DAY Attending Unavailable CAROLINE CERDA, SARJOHANNAA Primary Care Unavailable Dr. Alfredo Barroso Primary Care Provider Roz, Dr. Frank Emergency Provider [phone] Dr. Christofer Nj Attending Provider Dr. Christofer Nj Admit Provider Dr. Christofer Nj Other Provider Dr. Christofer Nj Referring Provider Dr. Alfredo Barroso Primary Care Provider [phone] Dr. Zac Courtney Emergency Provider [phone] Dr. Christofer Nj Attending Provider Dr. Christofer Nj Admit Provider Dr. Christofer Nj Other Provider Ondina, Dr. Reyna Referring Provider ROVERTO DIANE Primary Care Unavailable HUMBERTO SCHULTZ Referring Unavailable NO, DOCTOR ON Consulting Unavailable ENOCH MEDINA Attending Unavailable ENOCH MEDINA Primary Care Unavailable ENOCH MEDINA Admitting Unavailable Roxi CERDA, Roverto Kennedy Primary Care Provider Roxi CERDA, Roverto Kennedy Primary Care Provider ROVERTO DIANE Primary Care Unavailable ANGI SANTOS Referring Unavailable SUSAN MACDONALD Referring Unavailable ROVERTO DIANE Primary Care Unavailable COOPER JORDAN Referring Unavailable ROVERTO DIANE Primary Care Unavailable SUSAN MACDONALD Attending Unavailable SUSAN MACDONALD A Admitting Unavailable ROVERTO DIANE A Primary Care Unavailable Knoble CHUTE BUILDER.WALKING DRAGLINE OPERATOR, Cooper Unavailable Robby GARCIA, Sallie Unavailable Dharmesh CERDA, Dr. Fuentes Primary Care Provider Dharmesh CERDA, Dr. Fuentes Referring Provider Alec CERDA, Dr. Hernandez Attending Provider Cecilia ALVARENGA, Dr. Dial Attending Provider Dr. Jayro Brooks DO Emergency Provider Dr. Yovani Uriostegui DO Attending Provider Moody ALVARENGA, Dr. Pina Emergency Provider Keith CERDA, Dr. Mcmanus Attending Provider Dr. Marietta Lugo MD Referring Provider Dr. Angela Paul DO Attending Provider Dr. Angela Paul DO Referring Provider Oriana CHUTE BUILDER.WALKING DRAGLINE OPERATOR, Cooper Unavailable Knoble CHUTE BUILDER.WALKING DRAGLINE OPERATOR, Cooper Unavailable Robby GARCIA, Sallie Unavailable YOVANI FRY Admitting Unavailable YOVANI FRY Attending Unavailable ROVERTO DIANE Primary Care Unavailable Robby GARCIA, Sallie Unavailable Dharmesh CERDA, Dr. Fuentes Primary Care Provider Dr. Marietta Lugo MD Attending Provider Dr. Marietta Lugo MD Referring Provider [phone] Dr. Patricia Waite MD Emergency Provider Unavailab Patricia Breen Attending Unavailable Bursley, Alfredo Primary Care Unavailable Yovani Uriostegui Attending Unavailable Bursley, Alfredo Primary Care Unavailable David Michael Attending Unavailable Alec, David Referring Unavailable Bursley, Alfredo Primary Care Unavailable Britney Griffin Attending Unavailable Bursley, Alfredo Primary Care Unavailable Britney Griffin Referring Unavailable Bursley, Alfredo Primary Care Unavailable Angela Paul Attending Unavailable Wiswell, Angela Referring Unavailable [place], Marietta Referring Unavailable Bursley, Alfredo Primary Care Unavailable Marietta Lugo Attending Unavailable Bursley, Alfredo Primary Care Unavailable Marietta Lugo Attending Unavailable KeithMarietta saavedra Referring Unavailable AlecAdonayRichmond Attending Unavailable Bursley, Alfredo Primary Care Unavailable Bursley, Alfredo Referring Unavailable Yovani Uriostegui Attending Unavailable Bursley, Alfredo Primary Care Unavailable Jayro Brooks Attending Unavailable Bursley, Alfredo Primary Care Unavailable TAHMINA DUMONT Attending Unavailable JULIA, TAHMINA Referring Unavailable ROXI, ROVERTO A Primary Care Unavailable RAIZA BRASHER Attending Unavailable ROXI, ROVERTO A Primary Care Unavailable ROXI, ROVERTO A Primary Care Unavailable OBDULIA BILLINGS Attending Unavailable STEPHANI AARON Attending Unavailable MARIN, JAMMIE Referring Unavailable ROXI, ROVERTO A Primary Care Unavailable STEPHANI AARON Referring Unavailable ROXI, ROVERTO A Primary Care Unavailable SELF Referring Unavailable ROXI, ROVERTO A Primary Care Unavailable TAHMINA DUMONT Attending Unavailable ROXI, ROVERTO A Primary Care Unavailable [place] Attending Unavailable JULIA, KARLOUISE Referring Unavailable ROXI, ROVERTO A Primary Care Unavailable TOPHER MCCORD Attending Unavail able ROXI, ROVERTO A Primary Care Unavailable ROXI, ROVERTO A Primary Care Unavailable TAHMINA DUMONT Attending Unavailable ROXI, ROVERTO A Primary Care Unavailable MARIN, JAMMIE Referring Unavailable ROXI, ROVERTO A Primary Care Unavailable TAHMINA DUMONT Attending Unavailable ROXI, ROVERTO A Primary Care Unavailable CHRISTOFER AYALA Attending Unavailable ROXI, ROVERTO A Primary Care Unavailable MARIETTA LUGO Attending Unavailable DAYANNA AL Referring Unavailable ROXI, ROVERTO A Primary Care Unavailable ROXI, ROVERTO A Primary Care Unavailable MARIETTA LUGO Referring Unavailable ROXI, ROVERTO A Primary Care Unavailable HAURY, STEPHANI Referring Unavailable ROXI, ROVERTO A Primary Care Unavailable MARIETTA LUGO Attending Unavailable ROXI, ROVERTO A Primary Care Unavailable HAURY, STEPHANI Referring Unavailable ROXI, ROVERTO A Primary Care Unavailable BRITNEY GRIFFIN Attending Unavailable HAURY, STEPHANI Referring Unavailable ROXI, ROVERTO A Primary Care Unavailable ROXI, ROVERTO A Primary Care Unavailable TOPHER MCCORD Attending Unavail able ROXI, ROVERTO A Primary Care Unavailable BRITNEY GRIFFIN Attending Unavailable JULIA, TAHMINA Referring Unavailable ROXI, ROVERTO A Primary Care Unavailable MARIN, JAMMIE Referring Unavailable ROXI, ROVERTO A Primary Care Unavailable ROXI, ROVERTO A Primary Care Unavailable MARIN, JAMMIE Referring Unavailable ROXI, ROVERTO A Primary Care Unavailable TAHMINA DUMONT Attending Unavailable ROXI, ROVERTO A Primary Care Unavailable HAURY, STEPHANI Referring Unavailable ROXI, ROVERTO A Primary Care Unavailable JULIA, KARLOUISE Referring Unavailable ROXI, ROVERTO A Primary Care Unavailable ROXI, ROVERTO A Primary Care Unavailable MAURO LOVE Attending Unavailable MARIETTA LUGO Attending Unavailable ROXI, ROVERTO A Primary Care Unavailable ROXI, ROVERTO A Primary Care Unavailable HAURY, STEPHANI Referring Unavailable ROXI, ROVERTO A Primary Care Unavailable MARIETTA LUGO Attending Unavailable HAURY, STEPHANI Referring Unavailable ROXI, ROVERTO A Primary Care Unavailable ROXI, ROVERTO A Primary Care Unavailable TOPHER MCCORD Attending Unavail able BRITNEY GRIFFIN Referring Unavailable ROXI, ROVERTO A Primary Care Unavailable ROXI, ROVERTO A Primary Care Unavailable FELICITY ZULETA Attending Unavailable RAIZA BRASHER Attending Unavailable ROXI, ROVERTO A Primary Care Unavailable RAIZA BRASHER Referring Unavailable ROXI, ROVERTO A Primary Care Unavailable [place] Attending Unavailable BRITNEY GRIFFIN Referring Unavailable ROXI, ROVERTO A Primary Care Unavailable BRITNEY GRIFFIN Attending Unavailable ROXI, ROVERTO A Primary Care Unavailable BRITNEY GRIFFIN Referring Unavailable ROXI, ROVERTO A Primary Care Unavailable Allergies Allergy Classification Reported Allergen(s) Allergy Type Date of Onset Reaction(s) Facility Cranberry preparation (1 source) Cranberry preparation Drug Allergy 1 Anaphylaxis [facility] Nuts (not including peanuts) (1 source) tree nut, unspecified Food Allergy 2 Rash [facility] Work Phone: Opioid Agonists (2 sources) Morphine Drug Allergy 7 Other (See Comments), Palpitations, Other: See Comments [facility] Unclassified (3 sources) Peanut-Containi ng Drug Products Propensity to adverse reactions to drug 1 Anaphylaxis [facility] (20 sources) morphine; Translations: [morphine] drug allergy 7 Other (See Comments), Palpitations, Tachycardia (finding), Other: See Comments, Weal (disorder) [facility] Work Phone: (4 sources) peanut; Translations: [PEANUTS] drug allergy 7 Swelling [facility] Work Phone: (20 sources) Cranberry preparation; Translations: [CRANBERRY] Drug Allergy 1 Anaphylaxis, Rash [facility] (1 source) [facility]; Translations: [ANIMALS] allergy to substance 2 [facility] Work Phone: (20 sources) Mold Extract; Translations: [MOLD] Drug Allergy 2 Other: See Comments, Intolerance [facility] Work Phone: (1 source) Morphine Drug Allergy 2 [facility] Work Phone: (1 source) PLANT POLLEN; Translations: [PLANT POLLEN] allergy to substance 2 hay fever [facility] Work Phone: (1 source) DUSTS MITES; Translations: [DUSTS MITES] allergy to substance 2 [facility] Work Phone: (4 sources) tree nut, unspecified Drug Allergy 6 Shortness of Breath [facility] Work Phone: (20 sources) tree nut, unspecified; Translations: [TREE NUTS] Drug Allergy 2 Rash [facility] Work Phone: (20 sources) house dust allergenic extract; Translations: [HOUSE DUST] Drug Allergy 3 [facility] (20 sources) peanut allergenic extract; Translations: [PEANUT] Drug Allergy 3 [facility] (20 sources) cat dander; Translations: [CAT DANDER] Allergy to substance 3 [facility] (1 source) house dust allergenic extract Drug Allergy 5 [facility] (1 source) peanut allergenic extract Drug Allergy 5 [facility] Medications Current Medications Medication Drug [...] qDay, # 90 cap(s), 0 Refill(s), Pharmacy: [facility]/pharmacy #[id number], 162.6, cm, 04/09/22 13:27:00 EDT, Height Start [...] Active Start: 01-28-2012 take 1 tablet by [facility] twice daily AUGMENTIN 875-125 MG TABS One tablet by mouth twice daily AMOXICILLIN-POT CLAVULANATE [id number] Maria Esther Grover MD Start: 01-28-2012 End: 02-27-2012 take 1 tablet by mouth twice daily AUGMENTIN 875-125 MG TABS One tablet by mouth twice daily AMOXICILLIN-POT CLAVULANATE [id number] Maria Esther Grover MD cephalexin 500 mg [...] on above: Take 1 capsule by mo [facility] twice daily for 7 days. cetirizine hydrochloride 10 mg oral tablet (11 sources) Histamine-1 Receptor Antagonist Start: End: cetirizine 10 mg oral tablet Dose : 10 mg = 1 tab(s), Oral, qDay, # 30 tab(s), 0 Refill(s) Start Date: 08/08/21 Status: Ordered Comment on above: [facility] ciprofloxacin 750 mg oral tablet (2 sources) Quinolone Antimicrobial Start: End: ciprofloxacin 750 mg oral tablet Dose : 750 mg = 1 tab(s), Oral, q12h, X 14 day(s), # 28 tab(s), 0 Refill(s), 09/12/21 16:44:00 EST, Pharmacy: [facility]/pharmacy #[id number], 162.6, cm, 08/26/21 9:36:00 EST, Height, 114.4, [...] qHS, # 30 tab(s), 3 Refill(s), Pharmacy: [facility]/pharmacy #[id number], 162.6, cm, 08/29/21 21:58:00 EST, Height, kg, [...] Daily, # 7 tab(s), 0 Refill(s), Pharmacy: [facility]/pharmacy #[id number], 162.6, cm, 09/19/21 11:12:00 EST, Height, 110.7, [...] SUSP 2 spray/nostril twice daily FLUTICASONE PROPIONATE [id number] Maria Esther Grover MD Start: 03-02-2012 take 2 spray(s) nasa l route twice daily FLONASE 50 MCG/ACT SUSP 2 spray/nostril twice daily FLUTICASONE PROPIONATE [id number] Maria Esther Grover MD Start: 01-28-2012 take 2 spray(s) nasa l route once daily FLONASE 50 MCG/ACT SUSP 2 spray/nostril daily FLUTICASONE PROPIONATE [id number] Maria Esther Grover MD Comment on above: [...] anxiety, # 40 cap(s), 0 Refill(s), Pharmacy: [facility]/pharmacy #[id number], 162.6, cm, 08/26/21 9:36:00 EST, Height, kg, [...] pm. 9 mL 1 02/16/2025 05/02/2025 Active iv contrast (will be provide d with radiology test) (5 sources) Start: 06-28-2024 [...] MR contrast administration guidelines link. lactobacillus acidophilus [id number] unt oral capsule (2 sources) Start: 08-08-20 [...] on above: Take 1 capsule by mo [facility] once daily. lanolin 1000 mg/ml topical [...] INTRAUTERINE rout e. Take 1 tablet by [facility] one time only for 1 dose. loperamide hydrochloride 2 mg oral capsule (6 sources) Opioid Agonist Start: 01-10-2022 End: 03-11-2022 Imodium 2 mg oral capsule Dose : 2 mg = 1 cap(s), Oral, q4h, X 30 day(s), # 180 cap(s), 1 Refill(s), 03/11/22 11:32:00 EDT, Pharmacy: [facility]/pharmacy #[id number], 162.6, cm, 01/10/22 11:04:00 EDT, Height Start Date: 01/10/22 Stop Date: 03/11/22 Status: Ordered Start: 11-22-2021 End: 12-07-2021 loperamide 2 mg oral capsule Dose : 2 mg = 1 cap(s), Oral, q4h, PRN for loose stools, # 60 cap(s), 0 Refill(s), 12/07/21 9:05:00 EST, Pharmacy: [facility]/pharmacy #[id number], 162.6, cm, 11/13/21 12:20:00 EST, Height, kg, [...] stool, # 180 cap(s), 0 Refill(s), Pharmacy: [facility]/pharmacy #[id number], 162.6, cm, 09/19/21 11:12:00 EST, Height, kg, [...] BID, # 30 gram(s), 0 Refill(s), Pharmacy: [facility]/pharmacy #[id number], Cream, 162.6, cm, 09/08/21 13:45:00 EST, Height, [...] Nausea/Vomiting, # 20 tab(s), 0 Refill(s), Pharmacy: [facility]/pharmacy #[id number], 162.6, cm, 08/29/21 21:58:00 EST, Height, kg, [...] tab(s), 0 Refill(s), 10/06/22 14:26:00 EST, Pharmacy: [facility]/pharmacy #[id number], Post-op pain, 162.6, cm, 10/01/22 9:34:00 EST, Height, 115.4 Start Date: 10/01/22 Stop Date: 10/06/22 Status: Ordered Start: 02-14-2022 End: 02-21-2022 oxyCODONE 5 mg oral tablet ( IMMEDIATE release ) Dose : 5 mg = 1 tab(s), Oral, q6h, PRN for pain, X 7 day(s), # 28 tab(s), 0 Refill(s), 02/21/22 14:48:00 EDT, Pharmacy: [facility]/pharmacy #[id number], Post-op pain, 162.6, cm, 02/10/22 20:53:00 EDT, Height, 118.8 Start Date: 02/14/22 Stop Date: 02/21/22 Status: Ordered Start: 08-28-2021 End: 09-10-2021 oxyCODONE 5 mg oral tablet ( IMMEDIATE release ) Dose : 5 mg = 1 tab(s), Oral, q6h, X 7 day(s), # 28 tab(s), 0 Refill(s), 09/10/21 11:25:00 EST, Pharmacy: [facility]/pharmacy #[id number], Post-op pain, 162.6, cm, 08/29/21 21:58:00 EST, [...] Amine Anorectic Start: 05-30-2025 End: 08-28-2025 take 1 capsule by mouth once daily Phentermine 37.5 mg capsule Active 37.5 mg PO DAILY June 18, 2025 12:00am Start: 11-18-2023 End: 02-16-2024 take 45-49.9 capsules [...] wai once daily. Take 1 tablet by [facility] once daily for 30 days. Take 1 tablet by [facility] once daily for 90 days. BMI 40.74 Take 37.5 mg by [facility] daily before breakfast. Take 1 capsule by [facility] daily before breakfast for 90 days. phenylephrine [...] Comment on above: Take 4 tablets by [facility] once daily for 5 days. Take 2 tablets by [facility] once daily for 5 days. Take 4 tabs daily fo r 3 days, then 2 tabs daily for 3 days, then 1 tab daily for 3 days with food. proparacaine hydrochloride 5 mg/ml ophthalmic solution (1 source) Local Anesthetic Start: End: 023 proparacaine 0.5 % 1 Drop (ALCAINE) Senna Leaves (6 sources) Start: senna 8.6 mg oral tablet Dose : 17.2 mg = 2 tab(s), Oral, qHS, # 20 tab(s), 0 Refill(s), Pharmacy: [facility]/pharmacy #[id number], 162.6, cm, 08/26/21 9:36:00 EST, Height, kg, [...] as the piggyback being infused. Post-op Start: 05-16-2021 take 5-40 mL intravenously onc e 5-40 [...] day(s), # 14 tab(s), 0 Refill(s), Pharmacy: [facility]/pharmacy #[id number], 162.6, cm, 09/19/21 11:12:00 EST, Height, 110.7, kg, 09/19/21 11:12:00 EST, Dosing Weight Start Date: 09/19/21 Stop Date: 09/26/21 Status: Ordered Comment on above: Take 1 tablet by [facility] twice daily for 5 days. SUMAtriptan 100 mg oral tablet (11 sources) Serotonin-1b and Serotonin-1d Receptor Agonist Start: End: take 1 tablet by mouth every two [...] mg/0.5 mL pen injector (15 sources) Start: End: inject 12.5 mg by subcutaneous injection every [...] mg/0.5 mL pen injector (5 sources) Start: End: inject 2.5 mg by subcutaneous injection every [...] q4h, # 90 cap(s), 0 Refill(s), Pharmacy: [facility]/pharmacy #[id number], 162.6, cm, 08/26/21 9:36:00 EST, Height, kg, [...] / HYDROcodone bitartrate 5 mg oral tablet (12 sources) Opioid Agonist Start: 03-04-2024 End: 09-28-2024 Hydrocodone-Acetaminophen 5- 325 mg tablet Discontinued 1 {tbl} PO EVERY 6 HOURS NEEDED as needed for Pain 6 3 0 March 04, 2024 September 28, 2024 3:55pm Dental caries Dental caries, unspecified Start: 01-30-2017 End: 01-30-2017 Hydrocodone-Acetaminophen 1 TABLET tablet Discontinued 1 {tbl} PO EVERY 6 HOURS NEEDED as needed for Pain 5 0 January 30, 2017 12:00am January 30, 2017 8:41am Start: 01-30-2017 End: 01-30-2017 take 1 tablet by mouth every six hours as needed Hydrocodone-Acetaminophen Discontinued 1 TABLET PO EVERY 6 HOURS NEEDED 5 January 29, 2017 11:00pm January 30, 2017 7:41am [id number] actuat albuterol 0.09 mg/actuat metered dose [...] every 4hr as needed dyspnea ALBUTEROL SULFATE [id number] Maria Esther Grover MD Start: 01-28-2012 PROVENTIL HFA 108 (90 Base) MCG/ACT AERS 2 puff every 4hr as needed dyspnea ALBUTEROL SULFATE [id number] Maria Esther Grover MD End: 09-15-2024 albuterol [...] oral tablet (2 sources) Penicillin-class Antibacterial Start: End: take 1 tablet by mouth twice daily amoxicillin (AMOXIL) 875 mg tablet Indications: Dental abscess Take 1 tablet by mouth two times a day for 5 days. 10 tablet 10/11/2024 10/12/2024 Discontinued (Changing Therapy/Dosage Form) aspirin 81 mg delayed release oral tablet (20 sources) Platelet Aggregation Inhibitor, Nonsteroidal Anti-inflammatory Drug Start: End: take 1 tablet by mouth once daily Aspirin 81 mg tablet,delayed release (DR/EC) Discontinued 81 mg PO daily September 28, 2024 1:00am June 18, 2025 5:42pm atomoxetine 10 mg oral capsule (9 sources) [...] Meter (20 sources) Start: 12-31-19 End: 03-24-20 Blood-Glucose Meter Indications: Diet controlled gestational diabetes [...] oral solution (2 sources) alpha-Adrenergic Agonist, Uncompetitive N-mijzjk-A-aspartate Receptor Antagonist, Sigma-1 Agonist Start: 11-05-2019 End: 04-24-2022 take 10 mL by mouth every six hours as needed Wwowuluodetposi-Obqofgtqy-WP (BROMFED DM) 2-30-10 mg/5 mL syrup Take [...] Comment on above: Take 1 capsule by [facility] once each week. clobetasol propionate 0.5 mg/ml [...] ected. dicyclomine hydrochloride 20 mg oral tablet (12 sources) Anticholinergic Start: 10-30-2024 End: 01-05-2025 take [...] HOURS NEEDED as needed for abdominal discomfort 16 December 15, 2021 8:53am April 30, 2023 9:26am Start: 12-15-2021 End: 04-30-2023 take 20 mg by mouth every six hours as needed Dicyclomine Discontinued 20 MG PO EVERY 6 HOURS NEEDED December 15, 2021 7:53am April 30, 2023 8:26am docusate sodium 100 mg oral capsule (14 sources) Start: 03-24-2025 End: 05-08-2025 take 2 capsules by mouth once daily at bedtime docusate sodium (COLACE) 100 mg capsule Take 2 capsules by mouth daily at bedtime. 50 capsule 1 03/24/2025 3:20 PM EDT 03/24/2025 05/08/2025 Discontinued (Other) Start: 02-14-2022 End: 03-16-2022 Colace 100 mg oral capsule D ose : 100 mg = 1 cap(s), Oral, BID, # 60 cap(s), 0 Refill(s), Pharmacy: [facility]/pharmacy #[id number], 162.6, cm, 02/10/22 20:53:00 EDT, Height Start Date: 02/14/22 Stop Date: 03/16/22 Status: Ordered Start: 08-28-2021 Colace 100 mg oral capsule Dose : 100 mg = 1 cap(s), Oral, BID, # 60 cap(s), 0 Refill(s), Pharmacy: [facility]/pharmacy #[id number], 162.6, cm, 08/26/21 9:36:00 EST, Height, kg, [...] WEEK 2 mL 2 05/10/2024 08/08/2024 Active [id number] 0.3 ml EPINEPHrine 1 mg/ml auto-injector (14 sources) alpha-Adrenergic Agonist, beta-Adrenergic Agonist, Catecholamine Start: 07-02-2022 End: 12-01-2022 EPINEPHrine (EPIPEN 2-ROSIE) 0.3 mg/0.3 mL auto-injector Inject 0.3 mL intramuscularly as needed. 2 Each 1 07/02/2022 12/01/2022 Discontinued Start: 01-28-2012 End: 04-24-2022 EPINEPHrine (EPIPEN JR) 0.15 mg/0.3 mL auto-injector EPINEPHrine EPIPEN JR 2-ROSIE 0.15 MG/0.3ML SOAJ use as directed EPINEPHRINE [id number] Maria Esther Grover MD 01-28-2012 Maria Esther Grover MD [facility] ([id number]) 01/28/2012 04/24/2022 Discontinued (Course of therapy completed) Start: 01-28-2012 EPIPEN JR 2-PA K 0.15 MG/0.3ML SOAJ use as directed EPINEPHRINE [id number] Maria Esther Grover MD Comment on above: EPINEPHrine EPIPEN J R 2-ROSIE 0.15 MG/0.3ML SOAJ use as directed EPINEPHRINE [id number] Maria Esther Grover MD 01-28-2012 Maria Esther Grover MD [facility] ([id number]) Inject 0.3 mL intram uscularly as needed. [...] milk., # 40 tab(s), 0 Refill(s), Pharmacy: [facility]/pharmacy #[id number], 162.6, cm, 02/10/22 20:53:00 EDT, Height Start Date: 02/14/22 Status: Ordered Start: 08-28-2021 IBU 600 mg ora l tablet Dose : 600 mg = 1 tab(s), Oral, q6h, # 40 tab(s), 0 Refill(s), Pharmacy: [facility]/pharmacy #[id number], 162.6, cm, 08/26/21 9:36:00 EST, Height, kg, 08/26/21 9:36:00 EST, Dosing Weight Start Date: 08/28/21 Status: Ordered Start: 05-16-2021 take 1 tablet by [facility] every six hours as needed for pain ibuprofen (ADVIL;MOTRIN) 600 MG tablet Take 1 tablet by mouth every 6 hours as needed for Pain 120 tablet 0 05/17/2021 Active take 2 tablets by mo [facility] once, then take 8 tablets by mouth every hour MOTRIN IB 200 MG TABS 2 tablet by mouth every eight to twelve hours ibuprofen [id number] Wendy Tittel CHIEF LOAD DISPATCHER Iron (3 sources) Start: 09-28-2024 End: 06-18-2025 take 1 capsule by mouth once daily Pnv 259-Vtnc-Hsrmic-Dha 90 mg iron- 1 mg-200 mg capsule Discontinued 1 NMA PO daily September 28, 2024 1:00am June 18, 2025 5:42pm Start: 09-28-2024 take 1 capsule by mo [facility] once daily Pnv 177-Uxkt-Xhkkrz-Dha 90 mg iron- 1 mg-200 mg capsule Active 1 NMA PO daily September 28, 2024 1:00am isopropyl alcohol 0.7 ml/ml medicated pad (20 [...] Discontinued Start: 10-12-2024 take 2 capsules by out once daily lactobacillus comb no.10 20 billion [...] One tablet by mouth twice daily LORATADINE [id number] Maria Esther Grover MD Start: 01-28-2012 take 1 tablet by [facility] once daily CLARITIN 10 MG TABS One tablet by mouth daily LORATADINE [id number] Maria Esther Grover MD 1 ml LORazepam [...] twice daily. naproxen 500 mg oral tablet (9 sources) Nonsteroidal Anti-inflammatory Drug Start: 014 End: take 1 tablet by mouth twice daily as needed for pain Naproxen 500 MG tablet Discontinued 500 mg PO TWICE DAILY NEEDED as needed for Pain October 30, 2013 1:00am November 18, 2013 11:04pm nitrofurantoin, macrocrystals 100 mg oral capsule (13 sources) Nitrofuran Antibacterial Start: 024 End: 024 take 1 capsule by mouth twice daily at mealtime Nitrofurantoin Macrocrystal 100 mg capsule Discontinued 100 mg PO TWICE A DAY 14 7 November 24, 2023 1:00am March 04, 2024 8:47pm must administer with a meal/food Start: 10-04-2013 End: 10-30-2013 take 1 capsule by mouth every twelve hours Nitrofurantoin Monohyd/M-Cryst 100 MG capsule Discontinued 100 mg PO EVERY 12 HOURS 14 October 04, 2013 1:00am October 30, 2013 7:58pm nitrofurantoin, macrocrystals 25 mg / nitrofurantoin, monohydrate 75 mg oral capsule (16 sources) Nitrofuran Antibacterial Start: 05-13-2024 End: 05-18-2024 [...] Comment on above: Take 1 capsule by [facility] twice daily with meals for 7 days. ondansetron 4 mg disintegrating oral tablet (14 sources) Serotonin-3 Receptor Antagonist Start: 10-30-19 End: 01-06-20 take 1 tablet by mouth three times daily as needed for nausea and vomiting Ondansetron 4 mg tablet,disintegratin g Discontinued 4 mg PO THREE TIMES A DAY as needed for nausea and vomiting 01 11October 30, 2024 6:49am January 05, 2025 10:22am [...] MG TABS as directed PENICILLIN V POTASSIUM [id number] Mihcelle Celis LPN PNV 521-khswy-rsgqu-3-fish o il 400-32.5 mcg-mg chew (20 sources) Start: 07-22-2024 End: 05-08-2025 PNV 667-iaddk-hsrmc-3-fish o il 400-32.5 mcg-mg chew 07/22/2024 05/08/2025 Discontinued (Other) Start: 07-22-2024 PNV 103-folic- mpjxn-2-dbyw oil 400-32.5 mcg-mg chew 07/22/2024 Active Pnv [...] TABLET PO DAILY May 18, 2023 12:00am Pnv No.95-Ferrous Fumarate-Fa ( Multivitamins) 28 mg iron- 800 mcg tablet (1 source) Start: 05-18-2023 End: 03-04-2024 Pnv No.95-Ferrous Fumarate-Fa ( Multivitamins) 28 mg iron- 800 mcg tablet Discontinued 1 {tbl} PO DAILY May 18, 2023 12:00am March 04, 2024 8:47pm polyethylene glycol 3350 06701 mg powder for oral solution (13 sources) Osmotic Laxative Start: 09-18-2022 End: 09-19-2022 MiraLax oral powder for reconstitution see instructions, Oral, Mix in 32 ounce bottle of Gatorade. Shake and chill in refrigerator for 1 hour. Drink one 8 ounce glass of Miralax mix every hour, til gone, X 1 day(s), # 238 gram(s), 0 Refill(s), 09/19/22 14:26:00 EST, Pharmacy: [facility] Start Date: 09/18/22 Stop Date: 09/19/22 Status: Ordered Start: 05-18-2021 End: 06-21-2021 Polyethylene Glycol 3350 (Mi ralax) 17 gram Powder In Packet Discontinued 17 g PO DAILY June 18, 2021 12:00am June 21, 2021 5:06pm Start: 05-16-2021 17 g, Oral, DA ORA, First dose on Ana 05/16/21 at 1015 progesterone 200 mg oral capsule (2 sources) Progesterone Start: 05-14-2020 End: 04-24-2022 progesterone micronized (PROMETRIUM) 200 mg capsule Take 1 capsule by mouth as directed. 05/14/2020 04/24/2022 Discontinued (Course of therapy completed) Comment on above: Take 1 capsule by [facility] as directed. promethazine hydrochloride 25 mg oral tablet (9 sources) Phenothiazine Start: 10-04-2013 End: 10-30-2013 take 1 tablet by mouth every six hours as needed for nausea Promethazine 25 MG tablet Discontinued 25 mg PO EVERY 6 HOURS NEEDED as needed for Nausea 10 0 October 04, 2013 1:00am October 30, 2013 7:58pm sertraline 50 mg oral tablet (2 sources) Serotonin Reuptake Inhibitor take 1 tablet by mouth once daily ZOLOFT 50 MG TABS One tablet by mouth daily SERTRALINE HCL [id number] Beka Boateng spironolactone 100 mg oral tablet (2 sources) Aldosterone Antagonist Start: 01-08-2017 take 1 tablet by mouth twice daily SPIRONOLACTONE 100 MG TABS One tablet by mouth twice daily SPIRONOLACTONE [id number] Stephani Daniels RN RN tirzepatide (MOUNJARO) 10 [...] a day. Take 4 tablets by mo uth once daily. Unk Allergy Pill (9 sources) Start: 10-04-2013 End: 11-18-2013 Unk Allergy Pill Discontinued October 04, 2013 12:00am November 18, 2013 10:05pm Start: 10-04-2013 End: 11-18-2013 Unk Allergy Pill Discontinue d October 04, 2013 1:00am November 18, 2013 11:05pm Viloxazine (10 sources) Start: 08-05-2024 End: 09-28-2024 take 1 [...] pain; Translations: [Lower abdominal pain, unspecified] Onset: Episodic Acute posthemorrhagic anemia (11 sources) Acute [...] Anxiety disorder; Translations: [Anxiety disorder, unspecified] Onset: 9 Chronic Attention-deficit, conduct, and disruptive behavior disorders (2 sources) Attention deficit hyperactivity disorder, predominantly hyperactive impulsive type; Translations: [Attention-deficit hyperactivity disorder, predominantly hyperactive type] 05-10-2024 Chronic Attention-deficit, conduct, and disruptive behavior disorders (3 sources) Attention deficit hyperactivity disorder; Translations: [Attention-deficit hyperactivity disorder, unspecified type] 08-05-2024 Chronic Blindness and vision defects (3 sources) Blurring of visual image; Translations: [Other visual disturbances] Episodic Cardiac dysrhythmias (2 sources) Paroxysmal tachycardia, unspecified; Translations: [Paroxysmal tachycardia] Onset: 4 08-08-2024 Chronic Chronic obstructive pulmonary disease and bronchiectasis (11 sources) Bronchitis; Translations: [Bronchitis, not specified as acute or chronic] Episodic Complication of device; implant or graft (11 sources) Complication of urinary catheter; Translations: [Unspecified complication of genitourinary prosthetic device, implant and graft, initial encounter] Onset: 3 06-18-2021 Episodic Disorders of teeth and jaw (16 sources) Toothache; Translations: [Other specified disorders of teeth and supporting structures] 08-27-2020 Episodic E Codes: Fall (3 sources) Accidental fall ; Translations: [Unspecified fall, initial encounter] 11-02-2024 Episodic Esophageal disorders (3 sources) Gastroesophageal reflux disease; Translations: [Gastro-esophageal reflux disease without esophagitis] 08-05-2024 Chronic Fever of unknown origin (9 sources) Fever; Translations: [Fever, unspecified] 06-29-2021 Episodic Fluid and electrolyte disorders (12 sources) Hypokalemia; Translations: [Hypokalemia] 06-29-2021 Episodic Genitourinary symptoms and ill-defined conditions (20 sources) Dysuria; Translations: [Dysuria] Onset: 5 Episodic Headache; including migraine (1 source) Migraine without aura, not refractory ; Translations: [Migraine without aura, not intractable, without status migrainosus] 06-09-2023 Chronic Immunizations and screening for infectious disease (2 sources) Vaccination needed; Translations: [Encounter for immunization] Onset: 5 01-10-2025 Episodic Inflammatory diseases of female pelvic organs (10 sources) Acute vaginitis; Translations: [Acute vaginitis] Episodic Intestinal infection (15 sources) Clostridium difficile diarrhea; Translations: [Enterocolitis due to Clostridium difficile, not specified as recurrent] 06-20-2021 Episodic Intestinal obstruction without hernia (19 sources) Small bowel obstruction; Translations: [Unspecified intestinal obstruction, unspecified as to partial versus complete obstruction] 05-18-2023 Episodic Menstrual disorders (4 sources) Menorrhagia; Translations: [Excessive and frequent menstruation with regular cycle] 11-27-2023 Chronic Mood disorders (11 sources) Mood disorder; Translations: [Depressive disorder] Onset: 2 03-17-2012 Chronic Mycoses (1 source) Candidal intertrigo; Translations: [Candidiasis of skin and nail] 06-08-2023 Episodic Nausea and vomiting (13 sources) Nausea; Translations: [Nausea] Onset: 4 05-27-2023 Episodic Nonmalignant breast conditions (2 sources) Fibrocystic changes of bilateral breasts; Translations: [Diffuse cystic mastopathy of right breast] 11-27-2023 Chronic Nutritional deficiencies (20 sources) Vitamin D deficiency; Translations: [Vitamin D deficiency, unspecified] Onset: 9 Resolved: 5 12-16-2018 Chronic Open wounds of extremities (11 sources) Laceration of finger; Translations: [Laceration without foreign body of unspecified finger without damage to nail, initial encounter] Onset: 5 02-01-2020 Episodic Other bone disease and musculoskeletal deformities (9 sources) Costal chondritis; Translations: [Chondrocostal junction syndrome [Tietze]] 10-23-2018 Episodic Other circulatory disease (3 sources) Low blood pressure; Translations: [Hypotension, unspecified] 09-28-2024 Episodic Other complications of ; puerperium affecting management of mother (4 sources) Disruption of episiotomy wound in the puerperium; Translations: [Disruption of perineal obstetric wound] Episodic Other complications of (2 sources) Obesity complicating , second trimester; Translations: [Obesity affecting in second trimester, unspecified obesity type (HCC)] Onset: 5 Chronic Other complications of (14 sources) Reduced movement; Translations: [Decreased movements, unspecified trimester, not applicable or unspecified] 05-14-2021 Episodic Comment on above: 33-week intrauterine with decreased movement. Movement noted by nursing. heart tones also reactive. Will discharge to home with routine instructions. Other complications of (20 sources) High risk ; Translations: [Supervision of high risk , unspecified, second trimester] Onset: 4 Resolved: 5 09-19-2024 Episodic Other complications of (2 sources) Abdominal pain in ; Translations: [Other specified related conditions, unspecified trimester] 01-10-2025 Episodic Other complications of (2 sources) Headache; Translations: [Other specified related conditions, unspecified trimester] 03-03-2025 Episodic Other connective tissue disease (1 source) Synovitis of right ankle joint; Translations: [Synovitis and tenosynovitis, unspecified] Onset: 2 11-19-2021 Episodic Other connective tissue disease (5 sources) Disorder of abdominal wall; Translations: [Ventral hernia without obstruction or gangrene] 10-13-2022 Episodic Other connective tissue disease (3 sources) Pelvic floor dysfunction; Translations: [Other specified disorders of muscle] 07-28-2023 Episodic Other endocrine disorders (20 sources) Polycystic ovary syndrome; Translations: [Polycystic ovarian syndrome] Onset: 3 Resolved: 5 09-24-2022 Chronic Other endocrine disorders (1 source) Polycystic ovarian [...] Onset: 2 Chronic Other female genital disorders (7 sources) Vaginal bleeding; Translations: [Abnormal uterine and vaginal bleeding, unspecified] 07-22-2023 Chronic Other female genital disorders (6 sources) Vaginal discharge; Translations: [Other specified noninflammatory [...] unspecified] 08-24-2023 Chronic Other lower respiratory disease (9 sources) Dyspnea; Translations: [Dyspnea, unspecified] 10-23-2018 Episodic Other nervous system disorders (3 sources) Chronic pain; Translations: [Other chronic pain] [...] source) Overweight; Translations: [Overweight] 11-27-2023 Episodic Other skin disorders (1 source) Hirsutism; [...] organs (4 sources) Rectocele; Translations: [Rectocele] Onset: 2 Chronic Residual codes; unclassified (11 sources) Gestation period, 36 weeks; Translations: [36 weeks gestation of ] 06-18-2021 Episodic Residual codes; unclassified (4 sources) Treatment not available; Translations: [Procedure and treatment not carried out for other reasons] 05-14-2023 Episodic Residual codes; unclassified (1 source) Acquired absence of other specified parts of digestive tract; Translations: [Acquired absence of other specified parts of digestive tract] Onset: 4 Episodic Residual codes; unclassified (2 sources) Family [...] of ] 12-15-2024 Episodic Residual codes; unclassified (3 sources) Gestation period, 27 weeks; Translations: [27 weeks gestation of ] 01-06-2025 Episodic Residual codes; unclassified (2 sources) Gestation period, 28 weeks; Translations: [28 weeks gestation of ] 01-10-2025 Episodic Residual codes; unclassified (3 sources) Gestation period, 29 weeks; Translations: [29 weeks gestation of ] 01-21-2025 Episodic Residual codes; unclassified (3 sources) Gestation period, 32 weeks; Translations: [32 [...] of ] 03-14-2025 Episodic Residual codes; unclassified (2 sources) Gestation period, 35 weeks; Translations: [35 weeks gestation of ] 03-03-2025 Episodic Screening and history of mental health and substance abuse codes (20 sources) Ex-smoker; Translations: [Personal history of nicotine dependence] Onset: 9 Resolved: 5 12-16-2018 Episodic Skin and subcutaneous tissue infections (7 sources) Abscess of perineum; Translations: [Cutaneous abscess of perineum] 06-21-2021 Episodic Spondylosis; intervertebral disc disorders; other back problems (1 source) Acute low back pain; Translations: [Acute bilateral low back pain, unspecified whether sciatica present] Episodic Sprains and strains (9 sources) Low back strain; Translations: [Strain of muscle, fascia and tendon of lower back, initial encounter] 08-26-2019 Episodic Substance-related disorders (1 source) Nicotine dependence, other tobacco product, uncomplicated; Translations: [Nicotine dependence, other tobacco product, uncomplicated] Onset: 4 Chronic Suicide and intentional self-inflicted injury (9 sources) Has access to planned means of suicide; Translations: [Suicidal ideations] 04-30-2023 Episodic Superficial injury; contusion (4 sources) Contusion of foot; Translations: [Contusion of right foot, initial encounter] Onset: 2 11-18-2021 Episodic Unclassified (7 sources) History of closure of ileostomy 06-15-2022 Unclassified (5 sources) Blood clot (morphologic abnormality) 09-16-2022 Unclassified (20 sources) [facility] - [facility] Onset: 4 08-18-2024 Unclassified (20 sources) Education - [place] Onset: 4 08-18-2024 Unclassified (6 sources) [employer] Onset: 5 03-25-2025 Unclassified (1 source) Class [...] Episodic Conditions associated with dizziness or vertigo (7 sources) Dizziness; Translations: [Dizziness and giddiness] Onset: [...] controlled] Onset: 5 Resolved: 5 12-30-2024 Episodic Early or threatened labor (4 sources) Premature uterine contraction; Translations: [False labor before 37 completed weeks of gestation, unspecified trimester] Onset: 5 01-06-2025 Episodic Neoplasms of unspecified nature or uncertain behavior (2 sources) Neoplasm of uncertain behavior of skin; Translations: [Neoplasm of uncertain behavior of skin] Onset: 7 01-22-2017 Episodic Nonmalignant breast conditions (4 sources) Bilateral discharge from nipples; Translations: [Nipple discharge] Onset: 4 11-27-2023 Episodic Other and unspecified benign neoplasm (20 sources) [...] 07-25-2024 Episodic Other complications of (20 sources) Supervision [...] pregnancies, third trimester] Onset: 5 Episodic Other complications of [...] in second trimester] Onset: 4 Episodic Other gastrointestinal disorders (20 sources) History of gastroesophageal reflux disease; Translations: [Personal history of other diseases of the digestive system] Onset: 9 Resolved: 5 12-16-2018 Episodic Other gastrointestinal disorders (1 source) Personal history of other diseases of the digestive system; Translations: [History of gastroesophageal reflux (GERD)] Onset: 9 Episodic Other lower respiratory disease (2 sources) Dyspnea on exertion; Translations: [Other forms of dyspnea] 01-28-2012 Episodic Other nutritional; endocrine; and metabolic disorders (20 sources) Obese class II; Translations: [Obesity, unspecified] Onset: 3 Resolved: 3 07-06-2023 Chronic Other and delivery including normal (20 sources) ; Translations: [Encounter for supervision of normal , unspecified, unspecified trimester] Onset: 4 Resolved: 5 05-14-2021 Episodic Other screening for suspected conditions (not mental disorders or infectious disease) (14 sources) Patient encounter status; Translations: [Encounter for screening for diabetes mellitus] Onset: 9 12-16-2018 Episodic Other skin disorders (2 sources) Epidermoid cyst of skin; Translations: [Sebaceous cyst] Onset: 7 01-08-2017 Episodic Phlebitis; thrombophlebitis and thromboembolism (20 sources) [...] 03-28-2025 Episodic Residual codes; unclassified (1 source) 38 weeks gestation of ; Translations: [38 weeks gestation of (HCC)] Onset: 5 Episodic Residual codes; unclassified (1 source) 37 weeks gestation of ; Translations: [37 weeks gestation of (HCC)] Onset: 5 Episodic Residual codes; unclassified (1 source) 36 [...] weeks gestation of ] Onset: 4 Episodic Unclassified (1 source) Problem Unclassified (9 sources) Ostomy patient problem; Translations: [Complication of ostomy] 09-16-2021 Unclassified (9 sources) Advice given; Translations: [ support offered] 06-29-2021 Unclassified (1 source) Patient encounter status 05-08-2025 Results Test Name Value Interpretation Reference Range Facility [facility] 06-30-2025 [facility] Office Visit ([facility] ) ----- LEELEE ZAMORA ([id number]) 1995 F Date Time Provider Department 06/30/25 9:30 AM RAIZA BRASHER [facility] During your visit today, we recorded the following information about you: Pulse Blood pressure Weight Height 76/minute 123/74 119.5 kg 1.575 m Last Period 06/27/25 Raiza Brasher MD 07/04/2025 9:16 AM Signed BMI Obesity Medicine FollowUp Note June 30, 2025 Patient Summary: Leeele Zamora is 30 year old Female who presents for follow-up evaluation of her obesity and related complications to the [facility] [place]. Interval History: Leelee Zamora is a 30-year-old female with prediabetes, iron deficiency, and a history of gestational diabetes, presenting for follow-up of weight management. She has been taking phentermine but reports that it has not suppressed her appetite, though it has provided a slight increase in energy. She previously used tirzepatide, which was effective for weight loss, but was discontinued due to loss of insurance coverage. She also previously took topiramate, which she stopped when she became . Leelee has made dietary changes, including cutting out most sugars (sodas and juices) and most complex carbohydrates (bread, pasta), while maintaining a higher protein intake. She continues to eat vegetables such as broccoli and green beans, and limits corn. She drinks mostly water and occasionally Propel for a sweet, zero-sugar beverage. She reports occasional snacking between meals. She exercises daily for at least 30 minutes before bed, using a stair stepper, weights, resistance bands, and a hoop for inner thigh exercises. She recently returned to work after maternity leave, working Thursday through Thursday from 3 PM to 10 PM. She is not . She reports that her diarrhea has resolved. Leelee has a history of blood clots and was evaluated by hematology last year, including genetic testing for a hypercoagulable disorder. She was told she has one genetic factor that may increase her risk for clots, but her hypercoagulable panel was normal. She underwent a on 03/23 and was anemic after delivery, but her iron levels were normal during . She is not currently taking iron supplements. Obesity Medications: Phentermine , 10/29/22, 255lbs - appetite reduction, taking 1/2 dose - decreased binge eating - overall she thinks it helps sometimes and it doesn't other time - no SE - restarted in 05/2025, no change in weight. No reported benefit. Diet: Improvements in diet, food choices. Current nutrition plan includes none Currently f/b None Exercise: Daily workouts at home after work. Barriers to regular exercise? None Work-related activity:Active. ?Sleep: Change in sleep No: Reports quality of sleep is good and sleeps approximately 6 to 9 hours a night ??Stress: none I have confirmed and edited as necessary, the PFSH and ROS obtained by others. Current Outpatient Medications Medication Sig Phentermine HCl 37.5 mg capsule Take 1 capsule by mouth daily before breakfast for 90 days. No current facility-administered medications for this visit. PAST MEDICAL HISTORY Diagnosis Date Acute deep vein thrombosis (DVT) of popliteal vein of right lower extremity ([facility]) 02/2022 ADHD (attention deficit hyperactivity disorder) Allergic rhinitis, unspecified 12/16/2018 Bowel obstruction ([facility]) 2022 Chlamydia Diabetes, gestational ([facility]) Encounter for insertion of Mirena IUD 12/24/2021 Ex-smoker 12/16/2018 Started at age 19 up to 1/2-1 PPD, quit 05/2018 SAMAN (generalized anxiety disorder) 12/16/2018 [facility]. History of chlamydia 16 YO History of gastroesophageal reflux (GERD) 12/16/2018 History of maternal fourth degree perineal laceration, currently ([facility]) 08/18/2024 History of morbid obesity Infertility, female [...] HERNIA,REDUCIBLE incisional hernia and umbilical hernia repair Physical Exam: BP 123/74 (BP Site: Left Arm, BP Position: Sitting, BP Cuff Size: Extra Large Adult) Pulse 76 Ht 157.5 cm (5' 2) Wt 119.5 kg (263 lb 7.2 oz) LMP 06/27/2025 (more content not included)... Normal [facility] Emergency Department Summary on 06-18-2025 Emergency Department Summary [facility] Medical Records Department [address] [place] [address] Emergency Department Summary 06/18/25 MR#: [id number] Acct: [id number] Name: LEELEE ZAMORA Rep #: [id number] : 1995 30 From: Patricia Waite MD PCP: Dr. Alfredo Barroso MD Status:PRE ER Location: ED HPI History of Present Illness Chief Complaint: Laceration Narrative Narrative: Patient is a 30-year-old female presenting to the emergency department for a finger laceration. Patient has a past medical history as below. She reports that her last tetanus vaccine was in the past 5 years. Reports that she cut her left distal index finger with a steak knife. Denies any other injuries. [facility] Medical History Hypotension Dizziness Vitamin D deficiency PCOS (polycystic ovarian syndrome) Obesity GERD (gastroesophageal reflux disease) Hx of deep venous thrombosis History of post traumatic stress disorder SBO (small bowel obstruction) Endometritis Chronic pain Post traumatic stress disorder (PTSD) ADHD (attention deficit hyperactivity disorder) Anxiety Home Medications ???Medication ???Instructions ???Recorded ???Last Taken ???Type phentermine 37.5 mg capsule 37.5 mg PO DAILY 06/18/25 Unknown History Allergy/AdvReac Type Severity Reaction Status Date / Time cat dander Allergy Hives Verified 06/18/25 17:34 house dust Allergy Hives Verified 06/18/25 17:34 peanut Allergy Swelling Verified 06/18/25 17:34 cranberry AdvReac Rash Verified 06/18/25 17:34 mold AdvReac Other Verified 06/18/25 17:34 morphine AdvReac Chest Verified 06/18/25 17:34 tightness Family History Aunt Cancer maternal aunt [...] type: does not use ROS ROS ED ROS Narrative See HPI EXAM Physical Exam Narrative Exam Narrative: Vital signs: Reviewed General: Alert and oriented x 3. No acute distress HEENT: Head is normocephalic and atraumatic, sinuses nontender, pupils equal round and reactive. Nares are patent. Oropharynx and throat exams normal. Neck: Supple without lymphadenopathy nontender Cardiovascular: Regular rate and rhythm, no murmurs. No rubs or gallops. Normal S1 and S2 Respiratory: Clear to auscultation bilaterally. No wheezes, rales, rhonchi Abdominal: Soft and nontender. Normal bowel sounds. No guarding or rebound. Nonsurgical abdomen Extremities: Left distal index finger with half cm superficial laceration. No active bleeding on exam. No FB on wound exploration. Radial pulses intact bilaterally. Sensation and motor intact in radial, median and ulnar distributions. No tenderness. No bruising. The rest of the physical exam is unremarkable Const Vital Signs: 06/18/25 17:34 Temperature 97.8 F Temperature Source Temporal Pulse Rate 91 Respiratory Rate 16 Blood Pressure 141/81 H Blood Pressure Mean 101 Pulse Ox 99 Oxygen Delivery Method Room Air MDM MDM MDM Narrative Medical decision making narrative: Patient is a 30-year-old female presenting to the emergency department for a left index finger laceration. Patient was seen and examined. Vitals are stable. Patient resting in bed comfortably in no acute distress. Tetanus vaccine is up to date. Wound copiously irrigated. No foreign body noted. Neurovascularly intact. The laceration is very superficial I do not think there is any indication for x-ray imaging of the finger. Wound repaired with dermabond. Wound will be dressed. Given wound care instructions. Patient discharged from the Emergency Department. I do not feel that the patient's evaluation reveals any acute reason for admission at this time. I instructed them to either follow- up with their primary care physician or promptly return to the Emergency Department for reevaluation should symptoms worsen or new symptoms develop. I explained what symptoms would indicate the need to return to the emergency department. Shared decision making was used. The patient voiced understanding of the treatment plan and is agreeable with it. Clinical impression: finger laceration History Record Review (more content not included)... Normal [facility] BACTERIAL VAGINOSIS NAATon 0 06-09-2025 Lactobacillus crispatus+gasseri+yumi senii + Gardnerella vaginalis + Atopobium vaginae rRNA SANJEEV+probe Ql (Vag fld) Not detected Normal Not detected [facility] Comment on above: Order Comment: Speci men Type: SWABOrdering Facility: [facility] Address: [address] [place] [address] Performed By: #### 3 6902-5, BVAMP ####[facility] LABCLIA [id number] [place] [address] [place] Bacteria Ur Culton 5 Bacteria identified Cx Nom (U) ORGANISM ID: 1 <10,000 CFU/ml Normal urogenital mark Normal [facility] Comment on above: Performed By: #### 6 30-4 ####[facility] LABCLIA [id number] [place] [address] [place] C. trachomatis+N. gonorrhoea e DNA SANJEEV+probe Ql (Unsp spec)on 06-09-2025 C. trachomatis rRNA SANJEEV+probe Ql (Unsp spec) Not detected Normal Not detected [facility] Comment on above: Order Comment: Speci men Type: SWABOrdering Facility: [facility] Address: [address] [place] [address] Performed By: #### 3 6902-5, BVAMP ####[facility] LABCLIA [id number] [place] [address] [place] N. gonorrhoeae rRNA SANJEEV+probe Ql (Unsp spec) Not detected Normal Not detected [facility] Comment on above: Order Comment: Speci men Type: SWABOrdering Facility: [facility] Address: [address] [place] [address] Performed By: #### 3 6902-5, BVAMP ####[facility] LABCLIA [id number] [place] [address] [place] JOJO/TRICHOMONAS NAATon 0 06-09-2025 C. glabrata RNA SANJEEV+probe Ql (Vag fld) Not detected Normal Not detected [facility] Comment on above: Order Comment: Speci men Type: SWABOrdering Facility: [facility] Address: [address] [place] [address] Performed By: #### C VTV ####[facility] LABCLIA [id number] [place] [address] [place] Jojo sp DNA SANJEEV+probe Ql (Vag fld) Not detected Normal Not detected [facility] Comment on above: Order Comment: Speci men Type: SWABOrdering Facility: [facility] Address: [address] [place] [address] Result Comment: The Jojo species group target includes C. albicans, C. tropicalis, C. parapsilosis, and C. dubliniensis. Performed By: #### C VTV ####[facility] LABCLIA [id number] [place] [address] [place] T. vaginalis DNA SANJEEV+probe Ql (Unsp spec) Not detected Normal Not detected [facility] Comment on above: Order Comment: Speci men Type: SWABOrdering Facility: [facility] Address: [address] [facility] [address] Performed By: #### C VTV ####[facility] LABCLIA [id number] CAMILA MURILLO [id number] [place] [address] OF [facility] CNOVon 06-09-2025 CNOV Office Visit (WOUCA) ----- RICKIALEIDALEELEE ([id number]) 1995 F Date Time Provider Department 06/09/25 10:45 AM MAURO LOVE WONATHAN During your visit today, we recorded the [...] or phone within 1-2 days. Recording using [employer] software for draft documentation of the visit was discussed with the patient/authorized food products sales representative; all questions welcomed and answered. Patient/authorized food products sales representative agreed to proceed History and [...] transmitted disease) [Z11.3] Other Visit Diagnosis:Dysuria [R30.0] Order(s):GONORRHEA/CHLAMY COURTNEY NAAT [SQGCCT] Order #: [id number]. #:[id number] JOJO/TRICHOMONAS NAAT [SQCVTV] Order #: [id number]. #:[id number] BACTERIAL VAGINOSIS NAAT [SQBVAMP] Order #: [id number]. #:[id number] UA DIP, URINE (POC) [] Order #: [id number] BACTERIAL CULTURE, URINE [SQURCUL] Order #: [id number]. #:[id number] UA DIP, URINE (POC) [] Order #: [id number]. #:[id number] [id number] Prescriptions as of 06/09/2025 - Phentermine HCl [...] nicotine containi (more content not included)... Normal [facility] UA DIP, URINE (POC)on 2024 BILIRUBIN UA (POCT) Negative Negative [facility] CLARITY UA (POCT) Clear [facility] COLOR UA (POCT) Yellow [facility] GLUCOSE UA (POCT) Negative Negative mg/dL [facility] Hemoglobin Ql (U) Negative Negative [facility] KETONE UA (POCT) Negative Negative mg/dL [facility] LEUKOCYTES UA (POCT) Negative Negative [facility] NITRITE UA (POCT) Negative Negative [facility] PH UA (POCT) 7.0 4.5 - 8.0 [facility] Protein Ql (U) Negative Negative mg/dL [facility] SPECIFIC GRAVITY UA (POCT) 1.020 1.005 - 1.030 [facility] UROBILINOGEN UA (POCT) 0.2 Normal E.U./dL [facility] Location:[address], [address] [place] [address] POINT OF CARE [facility] 25(OH)D3 SerPl-mCncon 2024 25-hydroxyvitamin D3 [Mass/Vol] 32.0 ng/mL Normal 31.0-80.0 [facility] Comment on above: Order Comment: Speci men Type: BLOOD SPECIMENOrdering Facility: [facility] Address: [address] [place] [address] Performed By: #### 1 989-3 ####[facility] LABCLIA [id number] [place] [address] [place] Comprehensive metabolic 2000 panelon 06-05-2025 Albumin [Mass/Vol] 4.3 g/dL Normal 3.9-4.9 [facility] Comment on above: Order Comment: Speci men Type: BLOOD SPECIMENOrdering Facility: [facility] Address: [address] [place] [address] Performed By: #### 2 276-4, 15260-9, 2132-9, 82525-2 ####[facility] LABCLIA [id number] [place] [address] [place] ALP [Catalytic activity/Vol] 71 U/L Normal 34-123 [facility] Comment on above: Order Comment: Speci men Type: BLOOD SPECIMENOrdering Facility: [facility] Address: [address] [place] [address] Performed By: #### 2 276-4, 50897-6, 2132-06, ####[facility] LABCLIA [id number] [place] [id number] [place] ALT [Catalytic activity/Vol] 15 U/L Normal 7-38 [facility] Comment on above: Order Comment: Speci men Type: BLOOD SPECIMENOrdering Facility: [facility] Address: [address] [place] [address] Performed By: #### 2 276-4, 28072-8, 2132-06, ####[facility] LABCLIA [id number] [place] [id number] [place] Anion gap [Moles/Vol] 12 mmol/L Normal 8-15 [facility] Comment on above: Order Comment: Speci men Type: BLOOD SPECIMENOrdering Facility: [facility] Address: [address] [place] [address] Performed By: #### 2 276-4, 24770-6, 2132-06, ####[facility] LABCLIA [id number] [place] [id number] [place] AST [Catalytic activity/Vol] 11 U/L Low 13-35 [facility] Comment on above: Order Comment: Speci men Type: BLOOD SPECIMENOrdering Facility: [facility] Address: [address] [place] [address] Performed By: #### 2 276-4, 15118-8, 2132-06, ####[facility] LABCLIA [id number] [address] [address] [place] Bilirubin [Mass/Vol] 0.9 mg/dL Normal 0.2-1.3 [facility] Comment on above: Order Comment: Speci men Type: BLOOD SPECIMENOrdering Facility: [facility] Address: [address] [place] [address] Performed By: #### 2 276-4, 96398-8, 2132-06, ####[facility] LABCLIA [id number] [facility] [address] [address] [place] Calcium [Mass/Vol] 9.3 mg/dL Normal 8.5-10.2 [facility] Comment on above: Order Comment: Speci men Type: BLOOD SPECIMENOrdering Facility: [facility] Address: [address] [place] [address] Performed By: #### 2 276-4, 56754-1, 2132-06, ####[facility] LABCLIA [id number] [address] [address] [place] Chloride [Moles/Vol] 104 mmol/L Normal 98-107 [facility] Comment on above: Order Comment: Speci men Type: BLOOD SPECIMENOrdering Facility: [facility] Address: [address] [place] [address] Performed By: #### 2 276-4, 54720-7, 2132-06, ####[facility] LABCLIA [id number] [address] [address] [place] CO2 [Moles/Vol] 23 mmol/L Normal 22-30 [facility] Comment on above: Order Comment: Speci men Type: BLOOD SPECIMENOrdering Facility: [facility] Address: [address] [place] [address] Performed By: #### 2 276-4, 63768-0, 2132-06, ####[facility] LABCLIA [id number] [facility] [address] [place] [address] [place] Creatinine [Mass/Vol] 0.60 mg/dL Normal 0.58-0.96 [facility] Comment on above: Order Comment: Festus lind Type: BLOOD SPECIMENOrdering Facility: [facility] Address: [address] [place] [id number] Performed By: #### 2 276-4, 39455-5, 2132-06, 18686-9 ####[facility] LABCLIA [id number] [address] [address] [place] eGFRcr SerPlBld CKD-EPI 2020 124 mL/min/1.73m??? Normal >=60 [facility] Comment on above: Order Comment: Festus ilnd Type: BLOOD SPECIMENOrdering Facility: [facility] Address: [address] [place] [address] Result Comment: Kriss mated Glomerular Filtration Rate [...] reflect actual GFR. Performed By: #### 2 276-4, 33510-4, 2132-06, ####[facility] LABCLIA [id number] [address] [address] [place] Glucose [Mass/Vol] 83 mg/dL Normal 74-99 [facility] Comment on above: Order Comment: Festus lind Type: BLOOD SPECIMENOrdering Facility: [facility] Address: [address] [place] [address] Result Comment: The [place] Diabetes Association (ADA) provides guidance for cutoff [...] Standards of Medical Care in Diabetes 2016, [place] Diabetes Association. Diabetes Care. 2016.39(Suppl 1). Performed By: #### 2 276-4, 74911-2, 2132-06, ####[facility] LABCLIA [id number] [facility] [address] [address] [place] Potassium [Moles/Vol] 4.7 mmol/L Normal 3.7-5.1 [facility] Comment on above: Order Comment: Speci men Type: BLOOD SPECIMENOrdering Facility: [facility] Address: [address] [place], [place] [address] Performed By: #### 2 276-4, 78759-0, 2132-06, ####[facility] LABIA [id number] [address] [address] [place] Protein [Mass/Vol] 6.9 g/dL Normal 6.3-8.0 [facility] Comment on above: Order Comment: Speci men Type: BLOOD SPECIMENOrdering Facility: [facility] Address: [address] [place], [place] [address] Performed By: #### 2 276-4, 19926-4, 2132-06, 67489-1 ####[facility] LABIA [id number] [address] [address] [place] Sodium [Moles/Vol] 139 mmol/L Normal 136-144 [facility] Comment on above: Order Comment: Speci men Type: BLOOD SPECIMENOrdering Facility: [facility] Address: [address] [place] [address] Performed By: #### 2 276-4, 55099-0, 2132-06, ####[facility] LABCLIA [id number] [facility] [address] [address] [place] Urea nitrogen [Mass/Vol] 10 mg/dL Normal 7-21 [facility] Comment on above: Order Comment: Ivoni men Type: BLOOD SPECIMENOrdering Facility: [facility] Address: [address] [place] [address] Performed By: #### 2 276-4, 41632-8, 2132-06, 74137-6 ####[facility] LABCLIA [id number] [facility] [id number] [address] [place] Ferritin SerPl-mCncon 2024 Ferritin [Mass/Vol] 13.7 ng/mL Low 14.7-205.1 [facility] Comment on above: Order Comment: Ivoni men Type: BLOOD SPECIMENOrdering Facility: [facility] Address: [address] [place] [address] Performed By: #### 2 276-4, 25532-3, 2132-06, 73279-0 ####[facility] LABCLIA [id number] [place] [id number] [place] HbA1c (Bld)on 06-05-2025 Average glucose Estimated from glycated hemoglobin (Bld) [Mass/Vol] 97 mg/dL Normal [facility] Comment on above: Order Comment: Festus men Type: BLOOD SPECIMENOrdering Facility: [facility] Address: [address] [place] [address] Result Comment: eAG: (Estimated average glucose) is a calculated value from HgbA1c and is food products sales representative of the average blood glucose level in the last 2-3 month period. Performed By: #### 5 5454-3 ####[facility] LABCLIA [id number] [facility] [place] [id number] [address] [place] HbA1c (Bld) [Mass fraction] 5.0 % Normal 4.3-5.6 [facility] Comment on above: Order Comment: Festus diogo Type: BLOOD SPECIMENOrdering Facility: [facility] Address: [address] [place] [address] Result Comment: [place] Diabetes Association guidelines indicate that patients with HgbA1c in the range 5.7-6.4% are at increased risk for development of diabetes, and intervention by lifestyle modification may be beneficial. HgbA1c greater or equal to 6.5% is considered diagnostic of diabetes. Performed By: #### 5 5454-3 ####[facility] LABIA [id number] [place] [id number] [place] Iron and Iron binding capaci ty panelon 06-05-2025 Iron [Mass/Vol] 28 ug/dL Low 41-186 [facility] Comment on above: Order Comment: Speci men Type: BLOOD SPECIMENOrdering Facility: [facility] Address: [address] [place] [address] Performed By: #### 2 276-4, 76930-2, 9, 67599-8 ####[facility] LABIA [id number] [place] [address] [place] Iron binding capacity [Mass/Vol] 377 ug/dL Normal 232-386 [facility] Comment on above: Order Comment: Speci men Type: BLOOD SPECIMENOrdering Facility: [facility] Address: [address] [place] [address] Performed By: #### 2 276-4, 18841-8, 9, 41232-9 ####[facility] [id number] [place] [id number] [place] Iron/TIBC [Molar ratio] 7.4 % Low 15.0-57.0 [facility] Comment on above: Order Comment: Speci men Type: BLOOD SPECIMENOrdering Facility: [facility] Address: [address] [place] [address] Performed By: #### 2 276-4, 83477-7, 9, 05569-5 ####[facility] LABIA [id number] [place] [id number] [place] Vit B12 SerPl-mCncon 025 Cobalamin (Vitamin B12) [Mass/Vol] 347 pg/mL Normal 232-1245 [facility] Comment on above: Order Comment: Speci men Type: BLOOD SPECIMENOrdering Facility: [facility] Address: [address] [place] [address] Performed By: #### 2 276-4, 05248-5, 2132-9, 56008-6 ####[facility] LABCLIA [id number] CAMILA MURILLO [address] OF [facility] CNOVon 05-30-2025 CNOV Office Visit (BMITWI N) ----- LEELEE ZAMORA ([id number]) 1995 F Date Time Provider Department 05/30/25 9:30 AM RAIZA BRASHER BMITWIN During your visit today, we recorded the following information about you: Pulse Blood pressure Weight Height 81/minute 142/87 118.2 kg 1.575 m Raiza Brasher MD 06/30/2025 9:55 AM Signed [facility] Obesity Medicine FollowUp Note May 30, 2025 Patient Summary: Leelee Zamora is 30 year old Female who presents for follow-up evaluation of her obesity and related complications to the [facility] Bariatric and Metabolic [place]. Interval History: Leelee Zamora is a 30-year-old female presenting for evaluation of recent weight loss and diarrhea. Leelee reports a 20 lb weight loss over the past 3 months, with 10 lbs lost in the last week and a half, which she attributes to diarrhea. She describes the diarrhea as pure water with one bowel movement per day, beginning approximately 1.5 weeks ago. She has attempted dietary modifications, including increasing intake of bananas, bread, and protein, while avoiding greasy foods. She has also used Imodium, taking up to 6 doses in one day without relief. She denies any known cause for the diarrhea and is not currently . Leelee has a history of gestational diabetes and delivered her most recent child in March. She gained 80 lbs during , reaching a maximum weight of 280 lbs at delivery. Prior to , she was on phentermine, topiramate, and Trulicity, which helped her lose weight steadily, reducing her BMI to 30. She discontinued these medications in July upon discovering her . Her current diet includes three meals a day, primarily home-cooked, with a focus on low-calorie, low-sugar, and low-fat foods. She drinks water, diet soda, and zero-sugar Gatorade. She engages in physical activity, including using a stair stepper and a weighted hula hoop for 10 minutes each daily. She plans to resume walking with her children when the weather improves. Leelee is currently unemployed and caring for her two children. Her sleep is intermittent due to feeding her every 3 hours as per nutritional guidance. She denies stress from her current routine and is able to take naps during the day. Obesity Medications: Phentermine , 10/29/22, 255lbs - [...] plan includes none Currently f/b None Exercise: Several exercises with ; tries to workout at home. Barriers to regular exercise? None Work-related activity:Active. ?Sleep: Change in sleep No: Reports quality of sleep is good and sleeps approximately 6 to 9 hours a night ??Stress: none I have confirmed and edited as necessary, the PFSH and ROS obtained by others. No current outpatient medications on file. No current facility-administered medications for this visit. PAST MEDICAL HISTORY Diagnosis Date Acute deep vein thrombosis (DVT) of popliteal vein of right lower extremity (HCC) 02/2022 ADHD (attention deficit hyperactivity disorder) Allergic rhinitis, unspecified 12/16/2018 Bowel obstruction (HCC) 2022 Chlamydia Diabetes, gestational ([facility]) Encounter for insertion of Mirena IUD 12/24/2021 [...] HX 03/23/2025 CYST EXCISION 2016 right leg DANDC, DIAG [...] HERNIA,REDUCIBLE incisional hernia and umbilical hernia repair Physical Exam: BP 142/87 Pulse 81 Ht 157.5 cm (5' 2) Wt 118.2 kg (260 lb 9.3 oz) LMP 05/03/2025 (Exact Date) BMI 47.66 kg/m? NAD Results: reviewed labs with the pat (more content not included)... Normal [facility] CNPNon 05-08-2025 CNPN Telephone (OBGYWM) ----- LEELEE ZAMORA ([id number]) 1995 F Date Time Provider Department 05/08/25 [...] Encounter Status:Closed by [facility] HNO ID: [id number] Author: YOVANI FRY MD Service: Obstetrics Author Type: Nurse Practitioner Type: Discharge Summary Filed: 03/25/2025 10:40 Note Text: ----- Attestation signed by Yovani Fry MD at 03/25/2025 10:40 AM [facility] Attending Addendum: Please see EMR for comprehensive details of management and counseling. Yovani Fry MD ----- DISCHARGE SUMMARY OBSTETRICS PATIENT NAME: Leelee Zamora ADMISSION DATE: 03/23/2025 DISCHARGE DATE: 03/25/2025 Attending Physician: Yovani Fry MD Code Status: Not on file Treatment Team: Attending Provider: Yovani Fry MD Maternal Obstetric Provider: Tahmina Dumont Reason for Hospitalization: Intrauterine . Principal Problem: Term ([facility]) (POA: Yes) Active Problems: SAMAN (generalized anxiety disorder) (POA: Yes) Obesity complicating , second trimester ([facility]) (POA: Yes) Acute deep vein thrombosis (DVT) of right upper extremity ([facility]) (POA: Yes) Supervision of high risk in third trimester ([facility]) (POA: Yes) History of maternal fourth degree perineal laceration, currently ([facility]) (POA: Yes) Rectovaginal fistula (POA: Yes) History of forceps delivery in prior , currently ([facility]) (POA: Yes) Insulin controlled gestational diabetes mellitus (GDM) in third trimester ([facility]) (POA: Yes) History of reversal of ileostomy (POA: Yes) S/P hernia repair (POA: Yes) Status post laparoscopic cholecystectomy (POA: Yes) care following delivery ([facility]) (POA: No) ABLA (acute blood loss anemia) (POA: No) Resolved Problems: * No resolved hospital problems. * PROCEDURES/SURGERY DURING HOSPITALIZATION: Delivery Summary: Leeroy Zamora [[id number]] Delivery Information: Delivery Date: 03/23/25 Delivery type: , Low Transverse Delivering Clinician: Yovani Fry MD Garber: Gender: Male Weight (grams): 3331 g One [...] being sent home (more content not included)... Normal [facility] ANES POSTPROC EVALon 025 ANES POSTPROC EVAL HNO ID: [id number] Author: DANIEL ZAFAR MD Service: Anesthesiology Author Type: Anesthesiologist Type: Anesthesia Postprocedure Evaluation Filed: 03/24/2025 09:27 Note Text: POST ANESTHESIA EVALUATION NOTE : 1995 Procedure Summary Date: 03/23/25 Room / Location: [place] [address] / OB Anesthesia Start: 1134 Anesthesia Stop: [...] SpO2 100 % 03/24/25 0812 Leeroy Zamora [[id number]] Baby Delivery: 03/23/2025 1219 Post Anesthesia Patient [...] March 24, 2025 TIME: 9:09 AM CSN: [id number] Normal [facility] CBC panel Auto (Bld)on 03-24 Erythrocyte distribution width (RBC) [Ratio] 15.1 % High 11.5-15.0 [facility] [facility] Comment on above: Order Comment: Speci men Type: BLOOD SPECIMEN Ordering Facility: [facility] Address: [address] [place] [address] Performed By: #### 5 8410-2 #### [facility] CLIA [id number] [address] [place] [address] [place] Hematocrit (Bld) [Volume fraction] 33.7 % Low 36.0-46.0 [facility] Comment on above: Order Comment: Speci men Type: BLOOD SPECIMEN Ordering Facility: [facility] Address: [address] [place] [address] Performed By: #### 5 8410-2 #### [facility] CLIA [id number] [address] [place] [address] [place] Hemoglobin (Bld) [Mass/Vol] 10.6 g/dL Low 11.5-15.5 [facility] Comment on above: Order Comment: Speci men Type: BLOOD SPECIMEN Ordering Facility: [facility] Address: [address] [place] [address] Performed By: #### 5 8410-2 #### [facility] CLIA [id number] [address] [place] [address] [place] MCH (RBC) [Entitic mass] 25.1 pg Low 26.0-34.0 [facility] Comment on above: Order Comment: Speci men Type: BLOOD SPECIMEN Ordering Facility: [facility] Address: [address] [place] [address] Performed By: #### 5 8410-2 #### [facility] CLIA [id number] [address] [place] [address] [place] MCHC (RBC) [Mass/Vol] 31.5 g/dL Normal 30.5-36.0 [facility] Comment on above: Order Comment: Speci men Type: BLOOD SPECIMEN Ordering Facility: [facility] Address: [address] [place] [address] Performed By: #### 5 8410-2 #### [facility] CLIA [id number] [address] [place] [address] [place] MCV (RBC) [Entitic vol] 79.9 fL Low 80.0-100.0 [facility] Comment on above: Order Comment: Speci men Type: BLOOD SPECIMEN Ordering Facility: [facility] Address: [address] [place] [address] Performed By: #### 5 8410-2 #### [facility] CLIA [id number] [address] [place] [address] [place] Nucleated RBC (Bld) [#/Vol] 10*3/uL Normal <0.01 [facility] Comment on above: Order Comment: Speci men Type: BLOOD SPECIMEN Ordering Facility: [facility] Address: [address] [place] [address] Performed By: #### 5 8410-2 #### [facility] CLIA [id number] [address] [place] [address] [place] Platelet mean volume (Bld) [Entitic vol] 8.6 fL Low 9.0-12.7 [facility] Comment on above: Order Comment: Speci men Type: BLOOD SPECIMEN Ordering Facility: [facility] Address: [address] [place] [address] Performed By: #### 5 8410-2 #### [facility] CLIA [id number] [address] [place] [address] [place] Platelets (Bld) [#/Vol] 329 10*3/uL Normal 150-400 [facility] Comment on above: Order Comment: Speci men Type: BLOOD SPECIMEN Ordering Facility: [facility] Address: [address] [place] [address] Performed By: #### 5 8410-2 #### [facility] CLIA [id number] [address] [place] [address] [place] RBC (Bld) [#/Vol] 4.22 10*6/uL Normal 3.90-5.20 [facility] Comment on above: Order Comment: Speci men Type: BLOOD SPECIMEN Ordering Facility: [facility] Address: [address] [place] [address] Performed By: #### 5 8410-2 #### [facility] CLIA [id number] [address] [place] [address] [place] WBC (Bld) [#/Vol] 13.32 10*3/uL High 3.70-11.00 [facility] Comment on above: Order Comment: Speci men Type: BLOOD SPECIMEN Ordering Facility: [facility] Address: [address] [place] [address] Performed By: #### 5 8410-2 #### [facility] CLIA [id number] OF [facility] ANES PRE-OPon 03-23-2025 ANES PRE-OP HNO ID: [id number] Author: CLAUDIO FLORIAN APRN.COUNTER SALES REPRESENTATIVE Service: Anesthesiology Author Type: Nurse Roller Turner Type: Anesthesia Preprocedure Evaluation Filed: 03/23/2025 11:14 [...] morphine intolerance TAP block discussed, r/b/a discussed. [facility] [place] ANES POT ROOM TAPPER: Previous OB anesthetic: epidural No OB anesthesia [...] of maternal fourth degree perineal laceration, currently ([facility]) I - PHYSICAL EVALUATION AIRWAY Patient intubated: [...] complications or contraindication to planned procedure: none. [facility] CHART REVIEW: ACTIVE PROBLEM LIST Vitamin D Deficiency Saman (Generalized Anxiety Disorder) History of Gastroesophageal Reflux (Gerd) Allergic Rhinitis, Unspecified Ex-Smoker Psoriasis Polycystic Ovary Syndrome Obesity Complicating , Second Trimester ([facility]) Liver Hemangioma Vapes Nicotine Containing Substance Acute Deep Vein Thrombosis (Dvt) of Right Upper Extremity ([facility]) Supervision of high risk in third trimester ([facility]) History of Maternal Fourth Degree Perineal Laceration, Currently ([facility]) Rectovaginal Fistula History of Forceps Delivery in Prior , Currently ([facility]) Elevated Glucose Tolerance Test Insulin Controlled Gestational Diabetes Mellitus (Gdm) in Third Trimester ([facility]) History of Reversal of Ileostomy S/P Hernia Repair Status Post Laparoscopic Cholecystectomy Term ([facility]) PAST MEDICAL HISTORY Diagnosis Date Acute deep vein thrombosis (DVT) of popliteal vein of right lower extremity ([facility]) 02/2022 ADHD (attention deficit hyperactivity disorder) Allergic rhinitis, unspecified 12/16/2018 Bowel obstruction ([facility]) 2022 Chlamydia Diabetes, gestational ([facility]) Encounter for insertion of Mirena IUD 12/24/2021 Ex-smoker 12/16/2018 Started at age 19 up to 1/2-1 PPD, quit 05/2018 SAMAN (generalized anxiety disorder) 12/16/2018 Seeing Klaus Gonzalez at the [facility]. History of chlamydia 16 YO History of gastroesophageal reflux (GERD) 12/16/2018 History of maternal fourth degree perineal laceration, currently ([facility]) 08/18/2024 History of morbid obesity Infertility, female [...] No Kno (more content not included)... Normal [facility] HISTORY PHYSICALon 5 HISTORY PHYSICAL HNO ID: [id number] Author: YOVANI FRY MD Service: Obstetrics Author Type: Resident Type: H&P Filed: 03/23/2025 11:23 Note Text: ----- Attestation signed by Yovani Fry MD at 03/23/2025 11:23 AM M Attending Addendum: I have seen, evaluated and [...] the plan of care. Yovani Fry MD ----- OBSTETRICS HISTORY AND PHYSICAL SERVICE DATE: 03/23/2025 [...] of popliteal vein of right lower extremity ([facility]) 02/2022 ADHD (attention deficit hyperactivity disorder) Allergic rhinitis, unspecified 12/16/2018 Bowel obstruction ([facility]) 2022 Chlamydia Diabetes, gestational ([facility]) Encounter for insertion of Mirena IUD 12/24/2021 Ex-smoker 12/16/2018 Started at age 19 up to 12-1 PPD, quit 05/2018 SAMAN (generalized anxiety disorder) 12/16/2018 Seeing Klaus Gonzalez at the [facility] center. History of chlamydia 16 YO History of gastroesophageal reflux (GERD) 12/16/2018 History of maternal fourth degree perineal laceration, currently ([facility]) 08/18/2024 History of morbid obesity Infertility, female [...] Maternal Grandfather Col (more content not included)... [facility] OPERATIVE NOon 03-23-2025 OPERATIVE NO HNO ID: [id number] Author: YOVANI FRY MD Service: Obstetrics Author Type: Resident Type: Operative Report Filed: 03/23/2025 14:45 Note Text: ----- Attestation with edits by Yovani Fry MD at 03/23/2025 2:45 PM I was present, scrubbed, and operating throughout this uncomplicated primary LTCD. To recovery in stable condition. The operative course and findings were reviewed with the patient and all questions were addressed. Yovani Fry MD ----- OB OPERATIVE/PROCEDURE REPORT LOG ID: [id number] Surgery/Procedure Date: 03/23/2025 Incision/Procedure Start Time: 12:16 PM Incision Close/Procedure End Time: 12:46 PM Surgeon(s)/Proceduralist( s) and Mixed Crop Farmer(s): Surgeons and Role: * Yovani Fry MD [...] Information for the patient's : Leeroy Zamora [[id number]] Type: , Low Transverse Operative Findings: Weight: [...] difficulty followed by the remainder of the infant in the usual fashion. Delayed cord clamping [...] crystalloid Implantab (more content not included)... Normal [facility] CBC W Auto Differential pane l (Bld)on 03-22-2025 Basophils (Bld) [#/Vol] 10*3/uL Normal <0.11 [facility] Comment on above: Order Comment: Speci men Type: BLOOD SPECIMENOrdering Facility: [facility] Address: [address] [place] [address] Performed By: #### 5 7021-8 ####[facility] [id number] [place] [address] [place] Basophils/100 WBC (Bld) 0.2 % Normal [facility] Comment on above: Order Comment: Speci men Type: BLOOD SPECIMENOrdering Facility: [facility] Address: [address] [place] [address] Performed By: #### 5 7021-8 ####[facility] [id number] [place] [address] [place] Differential cell count method Nom (Bld) Auto Normal [facility] Comment on above: Order Comment: Speci men Type: BLOOD SPECIMENOrdering Facility: [facility] Address: [address] [place] [address] Performed By: #### 5 7021-8 ####[facility] HOSPITALJACKIELIA [id number] [place] [address] [place] Eosinophils (Bld) [#/Vol] 0.06 10*3/uL Normal <0.46 [facility] Comment on above: Order Comment: Speci men Type: BLOOD SPECIMENOrdering Facility: [facility] Address: [address] [place] [address] Performed By: #### 5 7021-8 ####[facility] [id number] [place] [address] [place] Eosinophils/100 WBC (Bld) 0.7 % Normal [facility] Comment on above: Order Comment: Speci men Type: BLOOD SPECIMENOrdering Facility: [facility] Address: [address] [place] [address] Performed By: #### 5 7021-8 ####[facility] [id number] [place] [address] [place] Erythrocyte distribution width (RBC) [Ratio] 15.3 % High 11.5-15.0 [facility] Comment on above: Order Comment: Speci men Type: BLOOD SPECIMENOrdering Facility: [facility] Address: [address] [place] [address] Performed By: #### 5 7021-8 ####[facility]ITALNCLI [id number] [place] [address] [place] Hematocrit (Bld) [Volume fraction] 35.3 % Low 36.0-46.0 [facility] Comment on above: Order Comment: Speci men Type: BLOOD SPECIMENOrdering Facility: [facility] Address: [address] [place] [address] Performed By: #### 5 7021-8 ####[facility]ITALNCLIA [id number] [place] [address] [place] Hemoglobin (Bld) [Mass/Vol] 11.6 g/dL Normal 11.5-15.5 [facility] Comment on above: Order Comment: Speci men Type: BLOOD SPECIMENOrdering Facility: [facility] Address: [address] [place] [address] Performed By: #### 5 7021-8 ####[facility] [id number] [place] [address] [place] Immature granulocytes (Bld) [#/Vol] 0.06 10*3/uL Normal <0.10 [facility] Comment on above: Order Comment: Speci men Type: BLOOD SPECIMENOrdering Facility: [facility] Address: [address] [place] [address] Performed By: #### 5 7021-8 ####[facility] [id number] [place] [address] [place] Immature granulocytes/100 WBC (Bld) 0.7 % Normal [facility] Comment on above: Order Comment: Speci men Type: BLOOD SPECIMENOrdering Facility: [facility] Address: [address] [place] [address] Performed By: #### 5 7021-8 ####[facility] [id number] [place] [address] [place] Lymphocytes (Bld) [#/Vol] 1.81 10*3/uL Normal 1.00-4.00 [facility] Comment on above: Order Comment: Speci men Type: BLOOD SPECIMENOrdering Facility: [facility] Address: [address] [place] [address] Performed By: #### 5 7021-8 ####[facility] [id number] [place] [address] [place] Lymphocytes/100 WBC (Bld) 20.8 % Normal [facility] Comment on above: Order Comment: Speci men Type: BLOOD SPECIMENOrdering Facility: [facility] Address: [address] [place] [address] Performed By: #### 5 7021-8 ####[facility]ITALNCLIA [id number] [place] [address] [place] MCH (RBC) [Entitic mass] 26.0 pg Normal 26.0-34.0 [facility] Comment on above: Order Comment: Speci men Type: BLOOD SPECIMENOrdering Facility: [facility] Address: [address] [place] [address] Performed By: #### 5 7021-8 ####[facility] [id number] [place] [address] [place] MCHC (RBC) [Mass/Vol] 32.9 g/dL Normal 30.5-36.0 [facility] Comment on above: Order Comment: Speci men Type: BLOOD SPECIMENOrdering Facility: [facility] Address: [address] [place] [address] Performed By: #### 5 7021-8 ####[facility] [id number] [place] [address] [place] MCV (RBC) [Entitic vol] 79.0 fL Low 80.0-100.0 [facility] Comment on above: Order Comment: Speci men Type: BLOOD SPECIMENOrdering Facility: [facility] Address: [address] [place] [address] Performed By: #### 5 7021-8 ####[facility] [id number] [place] [address] [place] Monocytes (Bld) [#/Vol] 0.55 10*3/uL Normal <0.87 [facility] Comment on above: Order Comment: Speci men Type: BLOOD SPECIMENOrdering Facility: [facility] Address: [address] [place] [address] Performed By: #### 5 7021-8 ####[facility] [id number] [place] [address] [place] Monocytes/100 WBC (Bld) 6.3 % Normal [facility] Comment on above: Order Comment: Speci men Type: BLOOD SPECIMENOrdering Facility: [facility] Address: [address] [place] [address] Performed By: #### 5 7021-8 ####[facility] [id number] [place] [address] [place] Neutrophils (Bld) [#/Vol] 6.19 10*3/uL Normal 1.45-7.50 [facility] Comment on above: Order Comment: Speci men Type: BLOOD SPECIMENOrdering Facility: [facility] Address: [address] [place] [address] Performed By: #### 5 7021-8 ####[facility] [id number] [place] [address] [place] Neutrophils/100 WBC (Bld) 71.3 % Normal [facility] Comment on above: Order Comment: Speci men Type: BLOOD SPECIMENOrdering Facility: [facility] Address: [address] [place] [address] Performed By: #### 5 7021-8 ####[facility] [id number] [place] [address] [place] Nucleated RBC (Bld) [#/Vol] 10*3/uL Normal <0.01 [facility] Comment on above: Order Comment: Speci men Type: BLOOD SPECIMENOrdering Facility: [facility] Address: [address] [place] [address] Performed By: #### 5 7021-8 ####[facility] [id number] [place] [address] [place] Nucleated RBC/100 WBC (Bld) [Ratio] 0.0 /100 WBC Normal [facility] Comment on above: Order Comment: Speci men Type: BLOOD SPECIMENOrdering Facility: [facility] Address: [address] [place] [address] Performed By: #### 5 7021-8 ####[facility] [id number] [place] [address] [place] Platelet mean volume (Bld) [Entitic vol] 8.8 fL Low 9.0-12.7 [facility] Comment on above: Order Comment: Speci men Type: BLOOD SPECIMENOrdering Facility: [facility] Address: [address] [place] [address] Performed By: #### 5 7021-8 ####[facility] DOMINIQUEKOPPERSTONNCCAMI [id number] [place] [address] [place] Platelets (Bld) [#/Vol] 335 10*3/uL Normal 150-400 [facility] Comment on above: Order Comment: Speci men Type: BLOOD SPECIMENOrdering Facility: [facility] Address: [address] [place] [address] Performed By: #### 5 7021-8 ####[facility]ITALNCLIA [id number] [place] [address] [place] RBC (Bld) [#/Vol] 4.47 10*6/uL Normal 3.90-5.20 [facility] Comment on above: Order Comment: Speci men Type: BLOOD SPECIMENOrdering Facility: [facility] Address: [address] [place] [address] Performed By: #### 5 7021-8 ####[facility]ITALNCLIA [id number] [place] [address] [place] WBC (Bld) [#/Vol] 8.69 10*3/uL Normal 3.70-11.00 [facility] Comment on above: Order Comment: Speci men Type: BLOOD SPECIMENOrdering Facility: [facility] Address: [address] [place], [place] [address] Performed By: #### 5 7021-8 ####[facility] [id number] [place] [id number] [place] Reagin and Treponema pallidu m IgG and IgM [Interp]on 03-22-2025 T. pallidum IgG+IgM IA Ql (S) Non-Reactive Normal Nonreactive [facility] Comment on above: Order Comment: Speci men Type: BLOOD SPECIMENOrdering Facility: [facility] Address: [address] [place] [address] Performed By: #### 7 3752-8 ####[facility] LABCLIA [id number] [place] [address] [place] Reagin+T pallidum IgG+IgM Se rPl-Impon 03-22-2025 Reagin and Treponema pallidum IgG and IgM [Interp] Cannot exclude recent Treponemal infection if specimen collected within 7-10 days after appearance of suspect lesions or 2-3 weeks after an exposure. Clinical correlation is required. Normal [facility] Comment on above: Order Comment: Speci men Type: BLOOD SPECIMENOrdering Facility: [facility] Address: [address] [place] [address] Performed By: #### 7 3752-8 ####[facility] LABIA [id number] [place] [address] [place] TYPE + SCREEN PRENATALon ABO A Normal [facility] Comment on above: Order Comment: Speci men Type: BLOOD SPECIMENOrdering Facility: [facility] Address: [address] [place] [address] Performed By: #### T SPN ####[facility] BLOOD BANKCLIA [id number] [place] [address] [place] Rh Nom (Bld) Positive Normal [facility] Comment on above: Order Comment: Speci men Type: BLOOD SPECIMENOrdering Facility: [facility] Address: [address] [id number] Performed By: #### T SPN ####[facility] BANKCLIA [id number] [address] TYPE AND SCREEN EXPIRATION 03/25/2025 23:59 Normal [facility] Comment on above: Order Comment: Speci men Type: BLOOD SPECIMENOrdering Facility: [facility] Address: [address] [place] [address] [place] [address] Performed By: #### T SPN ####[facility] BLO[facility] BANKCLIA [id number] [address] Padma 03-21-2025 YADIN Telephone (OBGYWM) ----- LEELEE ZAMORA ([id number]) 1995 F Date Time Provider Department 03/21/25 TAHMINA DUMONT During your visit today, we recorded the following information about you: Lenin Decker RN 03/21/2025 3:42 PM Signed Received call from [facility]. Patient is scheduled for 03/23/25 and they [...] [681] Primary Visit Diagnosis:38 weeks gestation of ([facility]) [Z3A.38] Other Visit Diagnosis:Supervision of high risk in third trimester ([facility]) [O09.93] Order(s):ANEMIA REFLEX PANEL [SQCBCARP] Order #: [id number] FUTURE SYPHILIS TREPONEMAL W/REFLEX [SQSYPHTX] Order #: [id number] FUTURE TYPE + SCREEN [SQTSPN] Order #: [id number] FUTURE Prescriptions as of 03/21/2025 - insulin [...] tablet by mouth once daily. - PNV 106-skili-chrcc-3-fish oil 400-32.5 mcg-mg chew Problem List As [...] Status:Closed by LENIN DECKER on 03/21/25 Normal [facility] URINE OB DIP B/Oon 5 Glucose Ql (U) Negative Neg mg/dL [facility] Interpretation and review of laboratory results Normal [facility] Protein.monoclonal (U) [Mass/Vol] Negative Neg mg/dL [facility] URINE OB DIP B/Oon 5 Glucose Ql (U) Negative Neg mg/dL [facility] Interpretation and review of laboratory results Normal [facility] Protein.monoclonal (U) [Mass/Vol] Negative Neg mg/dL [facility] Examination level ultrasound on 03-07-2025 [facility] Radiology Study observation (narrative) [facility] ROUTINE, GROUP B ST REPTOCOCCUS BY PCRon 03-07-2025 ROUTINE, GROUP B STREPTOCOCCUS BY PCR Not detected Normal [facility] Comment on above: Performed By: #### G BPCR ####[facility] LABCLIA [id number] [address] URINE OB DIP B/Oon Glucose Ql (U) Negative Neg mg/dL [facility] Protein.monoclonal (U) [Mass/Vol] Negative Neg mg/dL [facility] OB Triage Physician Noteon 0 03-03-2025 OB Triage Physician Note [facility] Medical Records Department [address] [place] [address] OB Triage Physician Note 03/03/25 0807 MR#: [id number] Acct: [id number] Name: LEELEE ZAMORA Rep #: [id number] : 1995 29 From: Marietta Lugo MD PCP: Dr. Alfredo Barroso MD Status:DEP CLI Y Location: [facility] HPI - General General Date of Admission: [...] symptoms 03/03/25 0810 Date [facility] Lug[facility]if applicable): Date CC: Dr. Alfredo Barroso MD; Dr. Marietta Lugo MD Signed Normal [facility] AST(SGOT)on 03-02-2025 AST [Catalytic activity/Vol] 11 U/L Normal <=31 [facility] Comment on above: Performed By: #### L 501.1400, L501.1105, L100.0500, L501.0900, L501.4405, L501.4100 ####[facility] [address] [place], [address] Alanine Aminotransferas (SGP T)on 03-02-2025 ALT [Catalytic activity/Vol] 7 U/L Normal <=34 [facility] Comment on above: Performed By: #### L 501.1400, L501.1105, L100.0500, L501.0900, L501.4405, L501.4100 ####[facility] [address] [place], [address] Bilirubin Test strip Ql (U)O rdered By: Marietta Lugo on 03-02-2025 Bilirubin Ql (U) Negative Negative [facility] CBC-Complete Blood Cnt No Di ffon 03-02-2025 Erythrocyte distribution width (RBC) [Ratio] 14.0 % Normal 11.6-14.6 [facility] Comment on above: Performed By: #### L 501.1400, L501.1105, L100.0500, L501.0900, L501.4405, L501.4100 #### [facility] [address] [place], [address] Hematocrit (Bld) [Volume fraction] 34.6 % Low 37-47 [facility] Comment on above: Performed By: #### L 501.1400, L501.1105, L100.0500, L501.0900, L501.4405, L501.4100 #### [facility] [address] [place], [address] Hemoglobin (Bld) [Mass/Vol] 11.6 g/dL Low 12.0-15.0 [facility] Comment on above: Performed By: #### L 501.1400, L501.1105, L100.0500, L501.0900, L501.4405, L501.4100 #### [facility] [address] [place], [address] MCH (RBC) [Entitic mass] 27.1 pg Normal 27.0-32.0 [facility] Comment on above: Performed By: #### L 501.1400, L501.1105, L100.0500, L501.0900, L501.4405, L501.4100 #### [facility] [address] [place], [address] MCHC (RBC) [Mass/Vol] 33.5 g/dL Normal 32-36 [facility] Comment on above: Performed By: #### L 501.1400, L501.1105, L100.0500, L501.0900, L501.4405, L501.4100 #### [facility] [address] [place], [address] MCV (RBC) [Entitic vol] 80.8 fL Low 81-99 [facility] Comment on above: Performed By: #### L 501.1400, L501.1105, L100.0500, L501.0900, L501.4405, L501.4100 #### [facility] [address] [place], [address] Platelet mean volume (Bld) [Entitic vol] 8.5 fL Normal 6.2-12.0 [facility] Comment on above: Performed By: #### L 501.1400, L501.1105, L100.0500, L501.0900, L501.4405, L501.4100 #### [facility] [address] [place], [address] Platelets (Bld) [#/Vol] 324 10*3/uL Normal 150-450 [facility] Comment on above: Performed By: #### L 501.1400, L501.1105, L100.0500, L501.0900, L501.4405, L501.4100 #### [facility] [address] [place], [address] RBC (Bld) [#/Vol] 4.28 10*6/uL Normal 4.2-5.4 [facility] Comment on above: Performed By: #### L 501.1400, L501.1105, L100.0500, L501.0900, L501.4405, L501.4100 #### [facility] [address] [place], [address] RDW SD 41.2 fl Normal 35.1-43.9 [facility] Comment on above: Performed By: #### L 501.1400, L501.1105, L100.0500, L501.0900, L501.4405, L501.4100 #### [facility] [address] [place], [address] WBC (Bld) [#/Vol] 9.2 10*3/uL Normal 4.4-11.0 [facility] Comment on above: Performed By: #### L 501.1400, L501.1105, L100.0500, L501.0900, L501.4405, L501.4100 #### [facility] [address] [place], [address] CNPNon 03-02-2025 CNPN Telephone (OBGYWM) ----- LEELEE ZAMORA ([id number]) 1995 F Date Time Provider Department 03/02/25 MAREITTA LUGO During your visit today, we recorded the following information about you: Tatyana Aponte RN 03/02/2025 2:08 PM Signed Patient 35w5d calling with complaints of headache since Thursday that is not resolved with medication. Patient denies any dizziness, blurred vision or increased swelling. Patient denies bleeding or leaking of fluid. Patient states she feels she is having wei rodriguez contractions and unsure of movement. Discussed with Dr. Lugo who is solutions sales consultant and she would like patient to go to [facility] for headache and decreased FM. Patient notified and is headed to hospital. [facility] notified. Tatyana Aponte RN Allergies As of [...] tablet by mouth once daily. - PNV 694-eimcv-bmqfn-3-fish oil 400-32.5 mcg-mg chew Problem List As [...] Status:Closed by TATYANA APONTE on 03/02/25 Normal [facility] Erythrocyte distribution wid th ratioOrdered By: Marietta Lugo on 03-02-2025 Erythrocyte distribution width (RBC) [Ratio] 14.0 % 11.6-14.6 [facility] Erythrocyte distribution wid th standard deviationOrdered By: Marietta Lugo on 03-02-2025 Erythrocyte distribution width (RBC) [Ratio] 41.2 fl 35.1-43.9 [facility] Glomerular filtration rate ( GFR) estimation/1.73 sq m using serum, plasma, or whole bOrdered By: Marietta Lugo on 03-02-2025 GFR/1.73 sq M.predicted among non-blacks MDRD (S/P/Bld) [Vol rate/Area] 131 mL/min/{1.73_m2} >60 [facility] Comment on above: mL/min/1.73m2 CKD-EP I Creatinine Equation (2020) Hematocrit Auto (Bld) [Volum e fraction]Ordered By: Marietta Lugo on 03-02-2025 Hematocrit (Bld) [Volume fraction] 34.6 % Low 37-47 [facility] Hemoglobin measurementOrdere d By: Marietta Lugo on 03-02-2025 Hemoglobin (Bld) [Mass/Vol] 11.6 g/dL Low 12.0-15.0 [facility] Ketones Test strip Ql (U)Ord ered By: Marietta Lugo on 03-02-2025 Ketones Ql (U) Negative Negative [facility] - Chemistry and C hemistry - challengeOrdered By: Marietta Lugo on 03-02-2025 AST [Catalytic activity/Vol] 11 U/L <32 [facility] MCV (mean corpuscular volume ) determinationOrdered By: Marietta Lugo on 03-02-2025 MCV (RBC) [Entitic vol] 80.8 fL Low 81-99 [facility] Mean corpuscular hemoglobin (MCH) determinationOrdered By: Marietta Lugo on 03-02-2025 MCH (RBC) [Entitic mass] 27.1 pg 27.0-32.0 [facility] Mean corpuscular hemoglobin concentration (MCHC) determinationOrdered By: Marietta Lugo on 03-02-2025 MCHC (RBC) [Mass/Vol] 33.5 g/dL 32-36 [facility] Mean platelet volume determi nationOrdered By: Marietta Lugo on 03-02-2025 Platelet mean volume (Bld) [Entitic vol] 8.5 fL 6.2-12.0 [facility] Nitrite Test strip Ql (U)Ord ered By: Marietta Lugo on 03-02-2025 Nitrite Ql (U) Negative Negative [facility] Platelet countOrdered By: Stephan machucakaiden Keith on 03-02-2025 Platelets (Bld) [#/Vol] 324 10*3/uL 150-450 [facility] Protein Test strip Ql (U)Ord ered By: Marietta Lugo on 03-02-2025 Protein Ql (U) 30 mg/dl High Negative [facility] Protein+Creatinine Ratio,Uri neon 03-02-2025 PROT:CRE RATIO 244 mg/g CRE High 0-200 [facility] Comment on above: Performed By: #### L 501.1400, L501.1105, L100.0500, L501.0900, L501.4405, L501.4100 #### [facility] [address] [place], [address] Protein (U) [Mass/Vol] 18.9 mg/dL High 0.0-12.0 [facility] Comment on above: Performed By: #### L 501.1400, L501.1105, L100.0500, L501.0900, L501.4405, L501.4100 #### [facility] [address] [place], [address] UR CREAT 77.50 mg/dL Normal 28.00-217.00 [facility] Comment on above: Performed By: #### L 501.1400, L501.1105, L100.0500, L501.0900, L501.4405, L501.4100 #### [facility] [address] [place], [address] RBC Auto (Bld) [#/Vol]Ordere d By: Marietta Lugo on 03-02-2025 RBC (Bld) [#/Vol] 4.28 10*6/uL 4.2-5.4 [facility] Random urine creatinine jay urement (mass/volume)Ordered By: Marietta Lugo on 03-02-2025 Creatinine Unsp time (U) [Mass/Vol] 77.50 mg/dL 28.00-217.00 [facility] Serum Creatinine AND GFRon 0 03-02-2025 Creatinine [Mass/Vol] 0.48 mg/dL Low 0.70-1.20 [facility] Comment on above: Performed By: #### L 501.1400, L501.1105, L100.0500, L501.0900, L501.4405, L501.4100 ####[facility] [address] [place], [place], [address]90) ECRCL 216.79 ml/min Normal 50-250 [facility] Comment on above: Performed By: #### L 501.1400, L501.1105, L100.0500, L501.0900, L501.4405, L501.4100 ####[facility] [address] [place], [address] GFR/1.73 sq M.predicted among non-blacks MDRD (S/P/Bld) [Vol rate/Area] 131 mL/min/{1.73_m2} Normal >60 [facility] Comment on above: Result Comment: mL/m in/1.73m2 CKD-EPI Creatinine Equation (2020) Performed By: #### L 501.1400, L501.1105, L100.0500, L501.0900, L501.4405, L501.4100 ####[facility] [address] [place], [place], [address] Serum creatinine measurement (mass/volume)Ordered By: Marietta Lugo on 03-02-2025 Creatinine [Mass/Vol] 0.48 mg/dL Low 0.70-1.20 [facility] Serum or plasma alanine comer otransferase (ALT) measurementOrdered By: Marietta Lugo on 03-02-2025 ALT [Catalytic activity/Vol] 7 U/L <35 [facility] Serum or plasma uric acid me asurement (mass/volume)Ordered By: Marietta Lugo on 03-02-2025 Urate [Mass/Vol] 4.8 mg/dL 2.6-6.0 [facility] Comment on above: The drugs N-Acetylcy steine and Metamizole may falsely depress this assay. Uric Acidon 03-02-2025 URIC 4.8 mg/dL Normal 2.6-6.0 [facility] Comment on above: Result Comment: The drugs N-Acetylcysteine and Metamizole may falsely depress this assay. Performed By: #### L 501.1400, L501.1105, L100.0500, L501.0900, L501.4405, L501.4100 ####[facility] [address] [place], [address] Urinalysis, Routine (Dipstic k)on 03-02-2025 BILIRUBIN URINE Negative Normal Negative [facility] Comment on above: Order Comment: DANIELLE CTOR TO SPECIFY Performed By: #### L 400.2010 #### [facility] [address] [place], [address] Clarity (U) Sl. Cloudy Normal Clear [facility] Comment on above: Order Comment: DANIELLE CTOR TO SPECIFY Performed By: #### L 400.2010 #### [facility] [address] [place], [address] Color (U) Straw Normal Yellow [facility] Comment on above: Order Comment: DANIELLE CTOR TO SPECIFY Performed By: #### L 400.2010 #### [facility] [address] [place], [address] GLUCOSE, UR Normal Normal Normal [facility] Comment on above: Order Comment: DANIELLE CTOR TO SPECIFY Performed By: #### L 400.2010 #### [facility] [address] [place], [address] KETONE UR Negative Normal Negative [facility] Comment on above: Order Comment: DANIELLE CTOR TO SPECIFY Performed By: #### L 400.2010 #### [facility] [address] [place], [address] LEUK ESTERASE 25 /ul Abnormal Negative [facility] Comment on above: Order Comment: COLLE CTOR TO SPECIFY Performed By: #### L 400.2010 #### [facility] [address] [place], [address] Nitrite Ql (U) Negative Normal Negative [facility] Comment on above: Order Comment: COLLE CTOR TO SPECIFY Performed By: #### L 400.2010 #### [facility] [address] [place], [address] OCCULT BLOOD-UR Negative Normal Negative [facility] Comment on above: Order Comment: COLLE CTOR TO SPECIFY Performed By: #### L 400.2010 #### [facility] [address] [place], [address] pH UR 6.5 Normal 5.0 - 8.0 [facility] Comment on above: Order Comment: COLLE CTOR TO SPECIFY Performed By: #### L 400.2010 #### [facility] [address] [place], [address] PROT DIPSTX 30 mg/dl Abnormal Negative [facility] Comment on above: Order Comment: COLLE CTOR TO SPECIFY Performed By: #### L 400.2010 #### [facility] [address] [place], [address] SP.GR. DIPSTX 1.010 Normal 1.002-1.030 [facility] Comment on above: Order Comment: COLLE CTOR TO SPECIFY Performed By: #### L 400.2010 #### [facility] [address] [place], [address] UROBILI Normal Normal Normal [facility] Comment on above: Order Comment: COLLE CTOR TO SPECIFY Performed By: #### L 400.2010 #### [facility] [address] [place], [address] Urine clarityOrdered By: Yumi Lugo on 03-02-2025 Clarity (U) Sl. Cloudy Clear [facility] Urine color determinationOrd ered By: Marietta Lugo on 03-02-2025 Color (U) Straw Yellow [facility] Urine glucose detectionOrder ed By: Marietta Lugo on 03-02-2025 Glucose Ql (U) Normal mg/dl Normal [facility] Urine leukocyte esterase det ection by dipstickOrdered By: Marietta Lugo on 03-02-2025 Leukocyte esterase Test strip Ql (U) 25 /ul High Negative [facility] Urine pHOrdered By: Marietta Lugo on 03-02-2025 pH (U) 6.5 [pH] 5.0 - 8.0 [facility] Urine protein measurement (m ass/volume)Ordered By: Marietta Lugo on 03-02-2025 Protein (U) [Mass/Vol] 18.9 mg/dL High 0.0-12.0 [facility] Urine protein/creatinine mas s ratioOrdered By: Marietta Lugo on 03-02-2025 Protein/Creatinine (U) [Mass ratio] 244 mg/g CRE High 0-200 [facility] Urine specific gravity measu rementOrdered By: Marietta Lugo on 03-02-2025 Specific gravity (U) [Rel density] 1.010 1.002-1.030 [facility] Urine urobilinogen measureme ntOrdered By: Marietta Lugo on 03-02-2025 Urobilinogen Ql (U) Normal mg/dl Normal [facility] White blood cell (WBC) count Ordered By: Marietta Lugo on 03-02-2025 WBC (Bld) [#/Vol] 9.2 10*3/uL 4.4-11.0 [facility] CNPNon 02-24-2025 YADIN Telephone (DONATO) ----- LEELEE ZAMORA ([id number]) 1995 F Date Time Provider Department 02/24/25 [...] by: Hector Garcia, RN - Fully Assessed Prescriptions as of 02/24/2025 [...] tablet by mouth once daily. - PNV 390-okkjm-dodrm-3-fish oil 400-32.5 mcg-mg chew Problem List As [...] Encounter Status:Closed by ARMANDO BURTON [facility] C[facility] (OBGWSR) ----- LEELEE ZAMORA ([id number]) 1995 F Date Time Provider Department 02/22/25 [place] OBGWSR During your visit today, we recorded the [...] and I will schedule, thank you. Sophia Hamilton, TERRY 02/22/2025 11:26 AM Signed 34w4d Order pending. Please review and file if appropriate. Pt saw clinical systems educator 01/10/25. However, has not seen Endo [...] gestational diabetes mellitus (GDM) in third trimester ([facility]) [O24.410] Other Visit Diagnoses:Supervision of high risk in third trimester ([facility]) [O09.93] Gestational diabetes mellitus (GDM) requiring insulin ([facility]) [O24.414] Order(s):ENDOCRINOLOGY DIETITIAN VISIT ([facility]) [3195858] Order #: [id number]: 4 FUTURE Prescriptions as of 02/22/2025 - [...] tablet by mouth once daily. - PNV 949-slhib-rrfke-3-fish oil 400-32.5 mcg-mg chew Problem List As [...] Encounter Status:Closed by LEELEE CONROY on 02/22/25 [facility] ----- LEELEE ZAMORA ([id number]) 1995 F Date Time Provider Department 02/22/25 [place] During your visit today, we recorded the following information about you: Hector Garcia RN 02/22/2025 9:21 AM Signed Previous operative Records from [place] received and sent to be scanned into [...] tablet by mouth once daily. - PNV 162-bokof-ifjwz-3-fish oil 400-32.5 mcg-mg chew Problem List As [...] Encounter Status:Closed by HECTOR GARCIA on 02/22/25 [facility] ----- LEELEE ZAMORA ([id number]) 1995 F Date Time Provider Department 02/21/25 [place] During your visit today, we recorded the following information about you: Hector Garcia RN 02/21/2025 3:52 PM Signed Faxed request form sent to Donta Diaz [phone] for records related to fistula surgery. They [...] Reason for Visit: Request Outside Medical Records [3574] Prescriptions as of 02/21/2025 - insulin NPH [...] tablet by mouth once daily. - PNV 327-wuwzq-iwezo-3-fish oil 400-32.5 mcg-mg chew Problem List As [...] Status:Closed by HECTOR GARCIA on 02/21/25 Normal [facility] Examination level ultrasound on 02-21-2025 [facility] Radiology Study observation (narrative) [facility] ([facility]) Rupture Of Membraneson 02-09-2025 ROM Negative Normal Negative [facility] Comment on above: Result Comment: Amni otic fluid not present indicates No Rupture of Membranes at time of specimen collection. Performed By: #### L 205.1000 ####[facility] [address] [place], [place], [address] C-LINE PRESENT? Normal Internal QC [facility] Comment on above: Result Comment: This specimen has been REJECTED due to Laboratory criteria: Quanity Not Sufficient. MARIANNA PAYAN has been notified of need of recollection. 02/09/251901 Dick Vasquez Performed By: #### L 205.1000 #### [facility] [address] [place], [place], [address] RECORD KIT LOT# Normal [facility] Comment on above: Result Comment: This specimen has been REJECTED due to Laboratory criteria: Quanity Not Sufficient. MARIANNA PAYAN has been notified of need of recollection. 02/09/251901 Dick Christina Performed By: #### L 205.1000 #### [facility] [address] [place], [address] ROM Normal Negative [facility] Comment on above: Result Comment: This specimen has been REJECTED due to Laboratory criteria: Quanity Not Sufficient. MARIANNA PAYAN has been notified of need of recollection. 02/09/251901 Dick Christina Performed By: #### L 205.1000 #### [facility] [address] [place], [address] C-LINE PRESENT? Normal Internal QC [facility] Comment on above: Result Comment: Canc elled via OM: Order edited - Discontinuing original order Performed By: #### L 205.1000 #### [facility] [address] [place], [address] RECORD KIT LOT# Normal [facility] Comment on above: Result Comment: Canc elled via OM: Order edited - Discontinuing original order Performed By: #### L 205.1000 #### [facility] [address] [place], [address] ROM Normal Negative [facility] Comment on above: Result Comment: Canc elled via OM: Order edited - Discontinuing original order Performed By: #### L 205.1000 #### [facility] [address] [place], [address] [facility] CNPN Telephone (OBGYWM) ----- LEELEE ZAMORA ([id number]) 1995 F Date Time Provider Department 02/09/25 [...] hour period. Reviewed kick counts with Pt. [employer] message sent with instructions for future reference. [...] tablet by mouth once daily. - PNV 449-ikpgo-odtqj-3-fish oil 400-32.5 mcg-mg chew Problem List As [...] Encounter Status:Closed by BRITNEY GRIFFIN on 02/10/25 [facility] 0 02-09-2025 OB Triage Physician Note [facility] Medical Records Department [address] [place] [address] OB Triage Physician Note 02/09/252031 MR#: [id number] Acct: [id number] Name: LEELEE ZAMORA Rep #: [id number] : 1995 29 From: Britney Griffin MD PCP: Dr. Alfredo Barroso MD Status:DEP CLI Y Location: [facility] HPI - General General Date of Admission: [...] Final MJ: 04/01/25 Gestational age: 32 5/7 PFSH PFS Medical History Hypotension Dizziness Vitamin D deficiency [...] of spontaneous rupture membranes. 02/09/252035 Date Britney Weaver Signature (if applicable): Date CC: Dr. Alfredo Barroso MD; Dr. Britney Griffin MD Signed [facility] 02-07-2025 [facility] Telephone ([id number]) ----- LEELEE ZAMORA ([id number]) 1995 F Date Time Provider Department 02/07/25 MARIETTA COBB [id number] During your visit today, we recorded the [...] MD - Fully Assessed Reason for Visit: 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 [1564] Cmt: PRAF Prescriptions as of 02/07/2025 - [...] tablet by mouth once daily. - PNV 883-rkrsb-azdyt-3-fish oil 400-32.5 mcg-mg chew Problem List As [...] Status:Closed by MARIETTA COBB on 02/07/25 Normal [facility] Examination level ultrasound on 02-06-2025 [facility] Radiology Study observation (narrative) [facility] URINE OB DIP B/Oon Glucose Ql (U) Negative Neg mg/dL [facility] Interpretation and review of laboratory results Normal [facility] Protein.monoclonal (U) [Mass/Vol] Negative Neg mg/dL [facility] CNPNon 01-23-2025 CNPN Telephone (OBGYWM) ----- LEELEE ZAMORA ([id number]) 1995 F Date Time Provider Department 01/23/25 [...] Tatyana Aponte RN 01/23/2025 12:46 PM Signed [employer] message sent to patient per request. Tatyana [...] tablet by mouth once daily. - PNV 433-umikt-huyxz-3-fish oil 400-32.5 mcg-mg chew Problem List As [...] Encounter Status:Closed by TATYANA APONTE on 01/23/25 [facility] CNNURSEon 01-10-2025 CNNURSE Nurse Visit (ENDIMT) ----- LEELEE ZAMORA ([id number]) 1995 F Date Time Provider Department 01/10/25 1:00 PM MIRTA SANTOS During your visit today, we recorded the following information about you: Mirta Santos RN 01/10/2025 1:12 PM Signed DIABETES CARE AND EDUCATION VISIT Location: [place] Type of visit: In person individual PATIENT'S [...] via access to shared medical record. SIGNATURE: Mrita Santos RN PATIENT NAME: Leelee Zamora DATE: January 10, 2025 TIME: 11:56 AM Referring Provider: STEPHANI AARON [[id number]] Allergies As of Date: 01/10/2025 Noted Allergy [...] (HCC) [O24.410] Order(s):CONSULT TO DIABETES EDUCATION DSME [[id number]] Order #: [id number]: 2 Prescriptions as of 01/10/2025 - Blood-Glucose [...] tablet by mouth once daily. - PNV 038-jrfeq-rbabu-3-fish oil 400-32.5 mcg-mg chew Problem List As [...] Encounter Status:Closed by MIRTA SANTOS on 01/10/25 [facility] 01-10-2025 CNPN Telephone (OBGYWM) ----- LEELEE ZAMORA ([id number]) 1995 F Date Time Provider Department 01/10/25 TAHMINA DUMONT OBGYWJeffrey During your visit today, we recorded the following information about you: Sophia Hamilton RN 01/10/2025 1:06 PM Signed Tahmina Dumont MD to [facility] Ob-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 Operator Pool 01/10/25 12:53 PM Result Note Growth in four weeks Tahmina Dumont MD OBSTETRIC ULTRASOUND WHI Sophia Hamilton, TERRY 01/10/2025 1:06 PM Signed Left message for patient to call office. TERRY Berrios Tara, TERRY 01/10/2025 1:57 PM Signed Pt in office and notified of need to get appointments scheduled. Pt saw AT today. Pt was at supervisor front asking to speak to the nurse stating she was under the impression she was needing prescription medication for the GDM, but this was not discussed. Leelee had appt with clinical systems educator today; However, when this RN asked if she was willing to see Ramp Supervisor, Pt states she has the information, but is not interested at this time. Advised Pt to eat high protein meals and avoid high sugary foods. Pt states she has the GDM information re: target ranges and this RN advised her to send her blood sugars weekly to provider via [employer] and if any questions/concerns to call office. [...] tablet by mouth once daily. - PNV 950-lcarg-jqvfl-3-fish oil 400-32.5 mcg-mg chew Problem List As [...] Status:Closed by TATYANA APONTE on 01/10/25 Normal [facility] Examination level ultrasound on 01-10-2025 [facility] Radiology Study observation (narrative) [facility] OB Triage Physician Noteon 0 01-10-2025 OB Triage Physician Note [facility] Medical Records Department [address] [place] [address] OB Triage Physician Note 01/10/25 1037 MR#: [id number] Acct: [id number] Name: LEELEE ZAMORA Rep #: [id number] : 1995 29 From: Britney Griffin MD PCP: Dr. Alfredo Barroso MD Status:[facility] Y Location: [facility] HPI - General General Date of Admission: [...] MD; Dr. Britney Griffin MD Signed Normal [facility] (ROM) Rupture Of Membraneson 01-09-2025 ROM Negative Normal Negative [facility] Comment on above: Result Comment: Amni otic fluid not present indicates No Rupture of Membranes at time of specimen collection. Performed By: #### L 205.1000 #### [facility] Laboratory [address] [place], [address] [facility] ----- LEELEE ZAMORA ([id number]) 1995 F Date Time Provider Department 01/09/25 [...] since it happened. Directed to go to [facility] for evaluation. RH positive. Patient states it will take her an hour and half to get to [facility] because she needs to get ready. Stressed [...] tablet by mouth once daily. - PNV 501-qwtus-dblbr-3-fish oil 400-32.5 mcg-mg chew Problem List As [...] Status:Closed by MARIETTA WERNER on 01/09/25 Normal [facility] Testing for ruptured membran esOrdered By: Angela Paul on 01-09-2025 Vaginal Amniotic Fluid Detection Negative Negative [facility] Comment on above: Amniotic fluid not p resent indicates No Rupture of FetalMembranes at time of specimen collection. OB Triage Physician Noteon 0 01-06-2025 OB Triage Physician Note [facility] Medical Records Department [address] [place] [address] OB Triage Physician Note 01/06/25 0650 MR#: [id number] Acct: [id number] Name: LEELEE ZAMORA Rep #: [id number] : 1995 29 From: Marietta Lugo MD PCP: Dr. Alfredo Barroso MD Status:DEP CLI Y Location: [facility] HPI - General General Date of Admission: 01/05/25 Date of Service: 01/05/25 Chief Complaint: contractions HPI Narrative LEELEE ZAMORA, is a 29 F who presents at 27 weeks with 3 days of contractions. No LOF. [place] quiet. FFN negative. Cervix closed. Discharged home [...] MD; Dr. Marietta Lugo MD Signed Normal [facility] Bilirubin Test strip Ql (U)O rdered By: Marietta Lugo on 01-05-2025 Bilirubin Ql (U) Negative Negative [facility] CNPNon 01-05-2025 CNPN Telephone (OBGYWM) ----- LEELEE ZAMORA ([id number]) 1995 F Date Time Provider Department 01/05/25 [...] yellow/green tissue. States she spoke with provider solutions sales consultant as was instructed to rest, put her feet up, and push fluids. If her pain did not improve she was to go to [facility]. Patient did not follow this advice. Calling this morning to see what she should do. Spoke with JACLYN. Patient to go to [facility] for evaluation. [facility] notified. Marietta Werner RN Allergies As of [...] tablet by mouth once daily. - PNV 187-monke-mmvlm-3-fish oil 400-32.5 mcg-mg chew Problem List As [...] Status:Closed by MARIETTA WERNER on 01/05/25 Normal [facility] Fibronectinon 01-06-20 fFIBRONECTIN Negative Normal [facility] Comment on above: Performed By: #### L 205.0000 ####[facility] [address] [place], [place], [id number] Fibronectin. (Vag fld) [Mass/Vol]Ordered By: Topher Causey on 01-05-2025 Fibronectin Negative [facility] Glucose Ql (U)Ordered By: Stephan Lugo on 01-05-2025 Urine Glucose (UA) Normal mg/dl Normal [facility] Ketones Test strip Ql (U)Ord ered By: Marietta Lugo on 01-05-2025 Ketones Ql (U) Negative Negative [facility] Nitrite Test strip Ql (U)Ord ered By: Marietta Lugo on 01-05-2025 Nitrite Ql (U) Negative Negative [facility] Protein Test strip Ql (U)Ord ered By: Marietta Lugo on 01-05-2025 Protein Ql (U) Negative Negative [facility] Urinalysis, Routine (Dipstic k)on 01-05-2025 BILIRUBIN URINE Negative Normal Negative [facility] Comment on above: Order Comment: COLLE CTOR TO SPECIFY Performed By: #### L 400.2010 ####[facility] [address] [place], [address] Clarity (U) Clear Normal Clear [facility] Comment on above: Order Comment: COLLE CTOR TO SPECIFY Performed By: #### L 400.2010 ####[facility] [address] [place], [address] Color (U) Straw Normal Yellow [facility] Comment on above: Order Comment: COLLE CTOR TO SPECIFY Performed By: #### L 400.2010 ####[facility] [address] [place], [address] GLUCOSE, UR Normal Normal Normal [facility] Comment on above: Order Comment: COLLE CTOR TO SPECIFY Performed By: #### L 400.2010 ####[facility] [address] [place], [address] KETONE UR Negative Normal Negative [facility] Comment on above: Order Comment: COLLE CTOR TO SPECIFY Performed By: #### L 400.2010 ####[facility] [address] [place], [address] LEUK ESTERASE Negative Normal Negative [facility] Comment on above: Order Comment: COLLE CTOR TO SPECIFY Performed By: #### L 400.2010 ####[facility] [address] [place], [address] Nitrite Ql (U) Negative Normal Negative [facility] Comment on above: Order Comment: COLLE CTOR TO SPECIFY Performed By: #### L 400.2010 ####[facility] [address] [place], [address] OCCULT BLOOD-UR Negative Normal Negative [facility] Comment on above: Order Comment: COLLE CTOR TO SPECIFY Performed By: #### L 400.2010 ####[facility] [address] [place], [address] pH UR 7.0 Normal 5.0 - 8.0 [facility] Comment on above: Order Comment: DANIELLE CTOR TO SPECIFY Performed By: #### L 400.2010 ####[facility] [address] [place], [address] PROT DIPSTX Negative Normal Negative [facility] Comment on above: Order Comment: DANIELLE CTOR TO SPECIFY Performed By: #### L 400.2010 ####[facility] [address] [place], [address] SP.GR. DIPSTX 1.005 Normal 1.002-1.030 [facility] Comment on above: Order Comment: DANIELLE CTOR TO SPECIFY Performed By: #### L 400.2010 ####[facility] [address] [place], [address] UROBILI Normal Normal Normal [facility] Comment on above: Order Comment: DANIELLE CTOR TO SPECIFY Performed By: #### L 400.2010 ####[facility] [address] [place], [address] Urine blood detectionOrdered By: Marietta Lugo on 01-05-2025 Urine Occult Blood Negative Negative [facility] Urine clarityOrdered By: Yumi Lugo on 01-05-2025 Clarity (U) Clear Clear [facility] Urine color determinationOrd ered By: Marietta Lugo on 01-05-2025 Color (U) Straw Yellow [facility] Urine leukocyte esterase det ection by dipstickOrdered By: Marietta Lugo on 01-05-2025 Leukocyte esterase Test strip Ql (U) Negative Negative [facility] Urine pHOrdered By: Marietta Lugo on 01-05-2025 pH (U) 7.0 [pH] 5.0 - 8.0 [facility] Urine specific gravity measu rementOrdered By: Marietta Lugo on 01-05-2025 Specific gravity (U) [Rel density] 1.005 1.002-1.030 [facility] Urobilinogen Ql (U)Ordered B y: Marietta Lugo on 01-05-2025 Urine Urobilinogen Normal mg/dl Normal [facility] GLUCOSE GESTATIONAL, 1 HOURo n 12-30-2024 Glucose 1 Hr post Unsp challenge [Mass/Vol] 199 mg/dL High 74-179 [facility] Comment on above: Order Comment: Speci men Type: BLOOD SPECIMENOrdering Facility: [facility] Address: [address] [place] [address] Result Comment: [facility] Congress of Obstetricians and Gynecologists ([place]) guidelines state gestational diabetes mellitus is present when 2 or more of the plasma glucose concentrations meet or exceed the following levels: fastin mg/dl, 1 hr: 180 mg/dl, 2 hr: 155 mg/dl, and 3 hr: 140 mg/dl. Performed By: #### G TGST1 ####[facility] [id number] [place] [address] [place] GLUCOSE GESTATIONAL, FASTING on 12-30-2024 Glucose post fast [Mass/Vol] 95 mg/dL High 74-94 [facility] Comment on above: Order Comment: Speci men Type: BLOOD SPECIMENOrdering Facility: [facility] Address: [address] [place] [address] Result Comment: [facility] Congress of Obstetricians and Gynecologists ([place]) guidelines state gestational diabetes mellitus is present when 2 or more of the plasma glucose concentrations meet or exceed the following levels: fastin mg/dl, 1 hr: 180 mg/dl, 2 hr: 155 mg/dl, and 3 hr: 140 mg/dl. Performed By: #### G TGSTF ####[facility] [id number] [address] [place] CBC W Auto Differential pane l (Bld)on 12-29-2024 Basophils (Bld) [#/Vol] 10*3/uL Normal <0.11 [facility] Comment on above: Order Comment: Speci men Type: BLOOD SPECIMENOrdering Facility: [facility] Address: [address] [place] [address] Performed By: #### 5 7021-8 ####[facility] DOMINIQUEKOPPERSTONNCLIA [id number] [place] [address] [place] Basophils/100 WBC (Bld) 0.3 % Normal [facility] Comment on above: Order Comment: Speci men Type: BLOOD SPECIMENOrdering Facility: [facility] Address: [address] [place] [address] Performed By: #### 5 7021-8 ####[facility] [id number] [place] [address] [place] Differential cell count method Nom (Bld) Auto Normal [facility] Comment on above: Order Comment: Speci men Type: BLOOD SPECIMENOrdering Facility: [facility] Address: [address] [place] [address] Performed By: #### 5 7021-8 ####[facility] [id number] [place] [address] [place] Eosinophils (Bld) [#/Vol] 0.05 10*3/uL Normal <0.46 [facility] Comment on above: Order Comment: Speci men Type: BLOOD SPECIMENOrdering Facility: [facility] Address: [address] [place] [address] Performed By: #### 5 7021-8 ####[facility] [id number] [place] [address] [place] Eosinophils/100 WBC (Bld) 0.6 % Normal [facility] Comment on above: Order Comment: Speci men Type: BLOOD SPECIMENOrdering Facility: [facility] Address: [address] [place] [address] Performed By: #### 5 7021-8 ####[facility]ITALNCLIA [id number] [place] [address] [place] Erythrocyte distribution width (RBC) [Ratio] 12.8 % Normal 11.5-15.0 [facility] Comment on above: Order Comment: Speci men Type: BLOOD SPECIMENOrdering Facility: [facility] Address: [address] [place] [address] Performed By: #### 5 7021-8 ####[facility] [id number] [place] [address] [place] Hematocrit (Bld) [Volume fraction] 34.0 % Low 36.0-46.0 [facility] Comment on above: Order Comment: Speci men Type: BLOOD SPECIMENOrdering Facility: [facility] Address: [address] [place] [address] Performed By: #### 5 7021-8 ####[facility] [id number] [place] [address] [place] Hemoglobin (Bld) [Mass/Vol] 11.3 g/dL Low 11.5-15.5 [facility] Comment on above: Order Comment: Speci men Type: BLOOD SPECIMENOrdering Facility: [facility] Address: [address] [place] [address] Performed By: #### 5 7021-8 ####[facility]ITALNCLIA [id number] [place] [address] [place] Immature granulocytes (Bld) [#/Vol] 0.05 10*3/uL Normal <0.10 [facility] Comment on above: Order Comment: Speci men Type: BLOOD SPECIMENOrdering Facility: [facility] Address: [address] [place] [address] Performed By: #### 5 7021-8 ####[facility]ITALNCLIA [id number] [place] [address] [place] Immature granulocytes/100 WBC (Bld) 0.6 % Normal [facility] Comment on above: Order Comment: Speci men Type: BLOOD SPECIMENOrdering Facility: [facility] Address: [address] [place] [address] Performed By: #### 5 7021-8 ####[facility] DOMINIQUEKellyNCFREYAA [id number] [place] [address] [place] Lymphocytes (Bld) [#/Vol] 1.35 10*3/uL Normal 1.00-4.00 [facility] Comment on above: Order Comment: Speci men Type: BLOOD SPECIMENOrdering Facility: [facility] Address: [address] [place] [address] Performed By: #### 5 7021-8 ####[facility] HOSPITALJACKIEA [id number] [place] [address] [place] Lymphocytes/100 WBC (Bld) 17.4 % Normal [facility] Comment on above: Order Comment: Speci men Type: BLOOD SPECIMENOrdering Facility: [facility] Address: [address] [place] [address] Performed By: #### 5 7021-8 ####[facility]OSPITALFREYAA [id number] [place] [address] [place] MCH (RBC) [Entitic mass] 29.1 pg Normal 26.0-34.0 [facility] Comment on above: Order Comment: Speci men Type: BLOOD SPECIMENOrdering Facility: [facility] Address: [address] [place] [address] Performed By: #### 5 7021-8 ####[facility] HOSPITALNCLIA [id number] [place] [address] [place] MCHC (RBC) [Mass/Vol] 33.2 g/dL Normal 30.5-36.0 [facility] Comment on above: Order Comment: Speci men Type: BLOOD SPECIMENOrdering Facility: [facility] Address: [address] [place] [address] Performed By: #### 5 7021-8 ####[facility] MILLWNCLIA [id number] [place] [address] [place] MCV (RBC) [Entitic vol] 87.6 fL Normal 80.0-100.0 [facility] Comment on above: Order Comment: Speci men Type: BLOOD SPECIMENOrdering Facility: [facility] Address: [address] [place] [address] Performed By: #### 5 7021-8 ####[facility] [id number] [place] [address] [place] Monocytes (Bld) [#/Vol] 0.41 10*3/uL Normal <0.87 [facility] Comment on above: Order Comment: Speci men Type: BLOOD SPECIMENOrdering Facility: [facility] Address: [address] [place] [address] Performed By: #### 5 7021-8 ####[facility] FLORIDAA [id number] [place] [address] [place] Monocytes/100 WBC (Bld) 5.3 % Normal [facility] Comment on above: Order Comment: Speci men Type: BLOOD SPECIMENOrdering Facility: [facility] Address: [address] [place] [address] Performed By: #### 5 7021-8 ####[facility] [id number] [place] [address] [place] Neutrophils (Bld) [#/Vol] 5.90 10*3/uL Normal 1.45-7.50 [facility] Comment on above: Order Comment: Speci men Type: BLOOD SPECIMENOrdering Facility: [facility] Address: [address] [place] [address] Performed By: #### 5 7021-8 ####[facility] H[facility]PITALNCLIA [id number] [place] [address] [place] Neutrophils/100 WBC (Bld) 75.8 % Normal [facility] Comment on above: Order Comment: Speci men Type: BLOOD SPECIMENOrdering Facility: [facility] Address: [address] [place] [address] Performed By: #### 5 7021-8 ####[facility] [id number] [place] [address] [place] Nucleated RBC (Bld) [#/Vol] 10*3/uL Normal <0.01 [facility] Comment on above: Order Comment: Speci men Type: BLOOD SPECIMENOrdering Facility: [facility] Address: [address] [place] [address] Performed By: #### 5 7021-8 ####[facility] [id number] [place] [address] [place] Nucleated RBC/100 WBC (Bld) [Ratio] 0.0 /100 WBC Normal [facility] Comment on above: Order Comment: Speci men Type: BLOOD SPECIMENOrdering Facility: [facility] Address: [address] [place] [address] Performed By: #### 5 7021-8 ####[facility] HOSPITALNCLI [id number] [place] [address] [place] Platelet mean volume (Bld) [Entitic vol] 8.7 fL Low 9.0-12.7 [facility] Comment on above: Order Comment: Speci men Type: BLOOD SPECIMENOrdering Facility: [facility] Address: [address] [place] [address] Performed By: #### 5 7021-8 ####[facility] HOSPITALNCLI [id number] [place] [address] [place] Platelets (Bld) [#/Vol] 270 10*3/uL Normal 150-400 [facility] Comment on above: Order Comment: Speci men Type: BLOOD SPECIMENOrdering Facility: [facility] Address: [address] [place] [address] Performed By: #### 5 7021-8 ####[facility] H[facility]PITALNCLIA [id number] [place] [address] [place] RBC (Bld) [#/Vol] 3.88 10*6/uL Low 3.90-5.20 [facility] Comment on above: Order Comment: Speci men Type: BLOOD SPECIMENOrdering Facility: [facility] Address: [address] [place] [address] Performed By: #### 5 7021-8 ####[facility] HOSPITALNCA [id number] [place] [address] [place] WBC (Bld) [#/Vol] 7.78 10*3/uL Normal 3.70-11.00 [facility] Comment on above: Order Comment: Speci men Type: BLOOD SPECIMENOrdering Facility: [facility] Address: [address] [place] [address] Performed By: #### 5 7021-8 ####[facility]OR[facility]AA [id number] [place] [address] [place] GESTATIONAL GLUCOSE SCREEN, 1-HOUR, 50 GRAM, NON-FASTINGon 12-29-2024 Glucose [Mass/Vol] 168 mg/dL High 74-134 [facility] Comment on above: Order Comment: Speci men Type: BLOOD SPECIMENOrdering Facility: [facility] Address: [address] [place], [place] [address] Result Comment: [facility] Congress of Obstetricians and Gynecologists ([place]) guidelines state a gestational diabetes mellitus positive screen is made, in women not previously diagnosed with overt diabetes, when the 1 hr plasma glucose level is equal to or above 140 mg/dL. The [facility] [employer] [facility] recommends a 135 mg/dL cutoff. Performed By: #### G LTGST ####[facility] [id number] [place] [address] [place] Reagin and Treponema pallidu m IgG and IgM [Interp]on 12-29-2024 T. pallidum IgG+IgM IA Ql (S) Non-Reactive Normal Nonreactive [facility] Comment on above: Order Comment: Speci men Type: BLOOD SPECIMENOrdering Facility: [facility] Address: [address] [place] [address] Performed By: #### 7 3752-8 ####[facility] LABIA [id number] [place] [address] [place] Reagin+T pallidum IgG+IgM Se rPl-Impon 12-29-2024 Reagin and Treponema pallidum IgG and IgM [Interp] Cannot exclude recent Treponemal infection if specimen collected within 7-10 days after appearance of suspect lesions or 2-3 weeks after an exposure. Clinical correlation is required. Normal [facility] Comment on above: Order Comment: Ivoni diogo Type: BLOOD SPECIMENOrdering Facility: [facility] Address: [address] [place] [address] Performed By: #### 7 3752-8 ####[facility] LABIA [id number] [place] [address] [place] CNPNon 12-22-2024 [facility] Telephone (RANJANA) ----- LEELEE ZAMORA ([id number]) 1995 F Date Time Provider Department 12/22/24 TAHMINA DUMONT During your visit today, we recorded the following information about you: Marietta Werner, TERRY 12/22/2024 3:22 PM Signed 25w5d Patient had [...] Karmon, MD 12/22/2024 3:43 PM Signed The [facility] does not provide formal US at [...] tablet by mouth once daily. 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 - PNV 111-bloao-vyelz-3-fish oil 400-32.5 mcg-mg chew Problem List As [...] Status:Closed by MARIETTA COBB on 12/19/24 Normal [facility] Examination level ultrasound on 11-15-2024 Indication [...] 13 oz EFW by: Hadlock (HC-AC-FL) Extended [employer]otive Dismantler 6.1 mm CM 5.5 mm 63% Nicolaides [...] normal LVOT view: normal 3-vessel view: normal 6-qulzum-ktpsgby view: normal Heart / Thorax Situs: situs [...] Read By: [place] M.D. MATERNAL MEDICINE [facility] Radiology Study observation (narrative) [facility] Absolute neutrophil countOrd ered By: Yovani Uriostegui on 10-30-2024 Neutrophils (Bld) [#/Vol] 9.3 10*3/uL High 2.0-7.7 [facility] Basic Metabolic Profile (BMP )on 10-30-2024 BUN/CRE 20.5 RATIO High 10-20 [facility] Comment on above: Performed By: #### L 500.2500, L100.0100, L501.2450, L500.3400 ####[facility] [address] [place], [address] CA,Total 8.8 mg/dL Normal 8.5-10.1 [facility] Comment on above: Performed By: #### L 500.2500, L100.0100, L501.2450, L500.3400 ####[facility] [address] [place], [address] Chloride [Moles/Vol] 109 mmol/L High 98-107 [facility] Comment on above: Performed By: #### L 500.2500, L100.0100, L501.2450, L500.3400 ####[facility] [address] [place], [address] CO2 [Moles/Vol] 18.0 mmol/L Low 21.0-32.0 [facility] Comment on above: Performed By: #### L 500.2500, L100.0100, L501.2450, L500.3400 ####[facility] [address] [place], [address] Creatinine [Mass/Vol] 0.54 mg/dL Low 0.55-1.02 [facility] Comment on above: Result Comment: The validity of the calculated GFR GFRAA in patients over 70 years has not been determined. Clinical correlation is essential. Performed By: #### L 500.2500, L100.0100, L501.2450, L500.3400 ####[facility] [address] [place], [address] ECRCL 175.40 ml/min Normal [facility] Comment on above: Performed By: #### L 500.2500, L100.0100, L501.2450, L500.3400 ####[facility] [address] [place], [address] EST GFR - AA 172 mL/min Normal >60 [facility] Comment on above: Result Comment: Afri can Panamanian GFR Calc Performed By: #### L 500.2500, L100.0100, L501.2450, L500.3400 ####[facility] [address] [place], [address] GAP 9 Normal 5-15 [facility] Comment on above: Performed By: #### L 500.2500, L100.0100, L501.2450, L500.3400 ####[facility] [address] [place], [address] GFR/1.73 sq M.predicted among non-blacks MDRD (S/P/Bld) [Vol rate/Area] 142 mL/min/{1.73_m2} Normal >60 [facility] Comment on above: Result Comment: Non- GFR Calc Performed By: #### L 500.2500, L100.0100, L501.2450, L500.3400 ####[facility] [address] [place], [address] Glucose [Mass/Vol] 139 mg/dL High 74-106 [facility] Comment on above: Result Comment: Fast ing Glucose result greater than or equal to 126 mg/dL suggests DIABETES MELLITUS per A.D.A. criteria. Performed By: #### L 500.2500, L100.0100, L501.2450, L500.3400 ####[facility] [address] [place], [address] Potassium [Moles/Vol] 3.6 mmol/L Normal 3.5-5.1 [facility] Comment on above: Performed By: #### L 500.2500, L100.0100, L501.2450, L500.3400 ####[facility] [address] [place], [address] Sodium [Moles/Vol] 136 mmol/L Normal 136-145 [facility] Comment on above: Performed By: #### L 500.2500, L100.0100, L501.2450, L500.3400 ####[facility] [address] [place], [address] Urea nitrogen [Mass/Vol] 11 mg/dL Normal 7-18 [facility] Comment on above: Performed By: #### L 500.2500, L100.0100, L501.2450, L500.3400 ####[facility] [address] [place], [address] Basophil percentageOrdered B y: Yovani Uriostegui on 10-30-2024 Basophils/100 WBC (Bld) 0.3 % 0-1 [facility] Bilirubin directOrdered By: Yovani Uriostegui on 10-30-2024 Bilirubin.direct [Mass/Vol] 0.25 mg/dL 0.00-0.30 [facility] Bilirubin, totalOrdered By: Yovani Uriostegui on 10-30-2024 Bilirubin [Mass/Vol] 1.20 mg/dL High 0.20-1.00 [facility] Comment on above: For patients on eltr ombopag therapy, use of Dimension Delight TBIL is not recommended. Blood urea nitrogen (BUN)/cr eatinine ratioOrdered By: Yovani Uriostegui on 10-30-2024 Urea nitrogen/Creatinine [Mass ratio] 20.5 mg/mg High 10- [facility] CBC W/Diff, Automatedon 01- Absolute Lymph 0.42 X10 3/uL Low 0.83-4.51 [facility] Comment on above: Performed By: #### L 500.2500, L100.0100, L501.2450, L500.3400 ####[facility] [address] [place], [address] Absolute Neut 9.3 X10 3/uL High 2.0-7.7 [facility] Comment on above: Performed By: #### L 500.2500, L100.0100, L501.2450, L500.3400 ####[facility] [address] [place], [address] Basophils/100 WBC (Bld) 0.3 % Normal 0-1 [facility] Comment on above: Performed By: #### L 500.2500, L100.0100, L501.2450, L500.3400 ####[facility] [address] [place], [address] Eosinophils/100 WBC (Bld) 0.1 % Normal 0-5 [facility] Comment on above: Performed By: #### L 500.2500, L100.0100, L501.2450, L500.3400 ####[facility] [address] [place], [address] Erythrocyte distribution width (RBC) [Ratio] 12.8 % Normal 11.6-14.6 [facility] Comment on above: Performed By: #### L 500.2500, L100.0100, L501.2450, L500.3400 ####[facility] [address] [place], [address] Hematocrit (Bld) [Volume fraction] 39.6 % Normal 37-47 [facility] Comment on above: Performed By: #### L 500.2500, L100.0100, L501.2450, L500.3400 ####[facility] [address] [place], [address] Hemoglobin (Bld) [Mass/Vol] 13.5 g/dL Normal 12.0-15.0 [facility] Comment on above: Performed By: #### L 500.2500, L100.0100, L501.2450, L500.3400 ####[facility] [address] [place], [address] IG% 0.900 Normal 0.0-0.9 [facility] Comment on above: Result Comment: IG% - Immature Granulocytes (promyelocytes, myelocytes and metamyelocytes) > 1% indicates that a LEFT SHIFT is Present. Performed By: #### L 500.2500, L100.0100, L501.2450, L500.3400 ####[facility] [address] [place], [address] Lymphocytes/100 WBC (Bld) 4.1 % Low 19-41 [facility] Comment on above: Performed By: #### L 500.2500, L100.0100, L501.2450, L500.3400 ####[facility] [address] [place], [address] MCH (RBC) [Entitic mass] 30.3 pg Normal 27.0-32.0 [facility] Comment on above: Performed By: #### L 500.2500, L100.0100, L501.2450, L500.3400 ####[facility] [address] [place], [address] MCHC (RBC) [Mass/Vol] 34.1 g/dL Normal 32-36 [facility] Comment on above: Performed By: #### L 500.2500, L100.0100, L501.2450, L500.3400 ####[facility] [address] [place], [address] MCV (RBC) [Entitic vol] 88.8 fL Normal 81-99 [facility] Comment on above: Performed By: #### L 500.2500, L100.0100, L501.2450, L500.3400 ####[facility] [address] [place], [address] Monocytes/100 WBC (Bld) 3.4 % Normal 0-10 [facility] Comment on above: Performed By: #### L 500.2500, L100.0100, L501.2450, L500.3400 ####[facility] [address] [place], [address] Neutrophils/100 WBC (Bld) 91.2 % High 47-70 [facility] Comment on above: Performed By: #### L 500.2500, L100.0100, L501.2450, L500.3400 ####[facility] [address] [place], [address] Nucleated RBC (Bld) [#/Vol] 0 10*3/uL Normal 0-5 [facility] Comment on above: Performed By: #### L 500.2500, L100.0100, L501.2450, L500.3400 ####[facility] [address] [place], [address] Platelet mean volume (Bld) [Entitic vol] 8.2 fL Normal 6.2-12.0 [facility] Comment on above: Performed By: #### L 500.2500, L100.0100, L501.2450, L500.3400 ####[facility] [address] [place], [address] Platelets (Bld) [#/Vol] 249 10*3/uL Normal 150-450 [facility] Comment on above: Performed By: #### L 500.2500, L100.0100, L501.2450, L500.3400 ####[facility] [address] [place], [address] RBC (Bld) [#/Vol] 4.46 10*6/uL Normal 4.2-5.4 [facility] Comment on above: Performed By: #### L 500.2500, L100.0100, L501.2450, L500.3400 ####[facility] [address] [place], [address] RDW SD 41.7 fl Normal 35.1-43.9 [facility] Comment on above: Performed By: #### L 500.2500, L100.0100, L501.2450, L500.3400 ####[facility] [address] [place], [address] WBC (Bld) [#/Vol] 10.2 10*3/uL Normal 4.4-11.0 [facility] Comment on above: Performed By: #### L 500.2500, L100.0100, L501.2450, L500.3400 ####[facility] [address] [place], [address] Carbon dioxide measurementOr dered By: Yovani Uriostegui on 10-30-2024 CO2 [Moles/Vol] 18.0 mmol/L Low 21.0-32.0 [facility] Chloride measurementOrdered By: Yovani Uriostegui on 10-30-2024 Chloride [Moles/Vol] 109 mmol/L High 98-107 [facility] Emergency Department Summary on 10-30-2024 Emergency Department Summary [facility] Medical Records Department [address] [place] [address] Emergency Department Summary 10/30/24 MR#: [id number] Acct: [id number] Name: LEELEE ZAMORA Rep #: [id number] : 1995 29 From: Yovani Uriostegui DO PCP: Dr. Alfredo Barroso MD Status:REG ER Location: ED HPI History of Present Illness Chief Complaint: Nausea/Vomiting/Diarrhea Informant: patient Narrative Narrative: Patient is a [...] infection and therefore comes in for evaluation [facility] Medical History Hypotension Dizziness Vitamin D deficiency [...] to sug (more content not included)... Normal [facility] Eosinophil percentageOrdered By: Yovani Uriostegui on 10-30-2024 Eosinophils/100 WBC (Bld) 0.1 % 0-5 [facility] Erythrocyte distribution wid th ratioOrdered By: Yovani Uriostegui on 10-30-2024 Erythrocyte distribution width (RBC) [Ratio] 12.8 % 11.6-14.6 [facility] Erythrocyte distribution wid th standard deviationOrdered By: Yovani Uriostegui on 10-30-2024 Erythrocyte distribution width (RBC) [Entitic vol] 41.7 fL 35.1-43.9 [facility] Estimated glomerular filtrat ion rate (GFR) AmericanOrdered By: Yovani Uriostegui on 10-30-2024 Estimated GFR (MDRD) Amer 172 mL/min >60 [facility] Comment on above: GFR Calc Estimation of creatinine helena aranceOrdered By: Yovani Uriostegui on 10-30-2024 Estimated Creatinine Clearance Calc 175.40 ml/min [facility] Glomerular filtration rate ( GFR) estimationOrdered By: Yovani Uriostegui on 10-30-2024 Estimated GFR (MDRD) Non-Af Amer 142 mL/min >60 [facility] Comment on above: Non- GFR Calc Glucose measurementOrdered B y: Yovani Uriostegui on 10-30-2024 Glucose [Mass/Vol] 139 mg/dL High 74-106 [facility] Comment on above: Fasting Glucose resu lt greater than or equal to 126 mg/dL suggests DIABETES MELLITUS per A.D.A. criteria. Hematocrit Auto (Bld) [Volum e fraction]Ordered By: Yovani Uriostegui on 10-30-2024 Hematocrit (Bld) [Volume fraction] 39.6 % 37-47 [facility] Hemoglobin measurementOrdere d By: Yovani Uriostegui on 10-30-2024 Hemoglobin (Bld) [Mass/Vol] 13.5 g/dL 12.0-15.0 [facility] Immature granulocytes/100 WB C Auto (Bld)Ordered By: Yovani Uriostegui on 10-30-2024 Immature granulocytes/100 WBC (Bld) 0.900 % 0.0-0.9 [facility] Comment on above: IG% - Immature Granu locytes (promyelocytes, myelocytes and metamyelocytes) > 1% indicates that a LEFT SHIFT is Present. Laboratory - Chemistry and C hemistry - challengeOrdered By: Yovani Uriostegui on 10-30-2024 AST [Catalytic activity/Vol] 9 U/L Low 15-37 [facility] Lipaseon 10-30-2024 Lipase [Catalytic activity/Vol] 27 U/L Normal 13-75 [facility] Comment on above: Result Comment: Plebrent flecther note: LIPASE revised reference range effective 23. New Lipase methodology. Expected to produce lower values than the previous assay method. NEW Reference Range: 13 - 75 U/L Performed By: #### L 500.2500, L100.0100, L501.2450, L500.3400 ####[facility] [address] [place], [address] Lipase measurementOrdered By : Yovani Uriostegui on 10-30-2024 Lipase [Catalytic activity/Vol] 27 U/L 13-75 [facility] Comment on above: Please note:LIPASE r evised reference range effective 23. New Lipase methodology. Expected to produce lower values than the previous assay method. NEW Reference Range: 13 - 75 U/L Liver Profileon 10-30-2024 Albumin [Mass/Vol] 2.9 g/dL Low 3.2-5.0 [facility] Comment on above: Performed By: #### L 500.2500, L100.0100, L501.2450, L500.3400 ####[facility] [address] [place], [address] ALK P 57 U/L Normal 45-117 [facility] Comment on above: Performed By: #### L 500.2500, L100.0100, L501.2450, L500.3400 ####[facility] [address] [place], [address] ALT [Catalytic activity/Vol] 13 U/L Normal 13-56 [facility] Comment on above: Performed By: #### L 500.2500, L100.0100, L501.2450, L500.3400 ####[facility] [address] [place], [address] AST [Catalytic activity/Vol] 9 U/L Low 15-37 [facility] Comment on above: Performed By: #### L 500.2500, L100.0100, L501.2450, L500.3400 ####[facility] [address] [place], [address] Bilirubin [Mass/Vol] 1.20 mg/dL High 0.20-1.00 [facility] Comment on above: Result Comment: For patients on eltrombopag therapy, use of Dimension Delight TBIL is not recommended. Performed By: #### L 500.2500, L100.0100, L501.2450, L500.3400 ####[facility] [address] [place], [address] Bilirubin.direct [Mass/Vol] 0.25 mg/dL Normal 0.00-0.30 [facility] Comment on above: Performed By: #### L 500.2500, L100.0100, L501.2450, L500.3400 ####[facility] [address] [place], [address] Globulin (S) [Mass/Vol] 4.1 g/dL Normal 2.2-4.2 [facility] Comment on above: Performed By: #### L 500.2500, L100.0100, L501.2450, L500.3400 ####[facility] [address] [place], [address] T PROT 7.0 g/dL Normal 6.4-8.2 [facility] Comment on above: Performed By: #### L 500.2500, L100.0100, L501.2450, L500.3400 ####[facility] [address] [place], [address] Lymphocytes Auto (Unsp spec) [#/Vol]Ordered By: Yovani Uriostegui on 10-30-2024 Lymphocytes (Bld) [#/Vol] 0.42 10*3/uL Low 0.83-4.51 [facility] Lymphocytes/100 WBC Auto (Un sp spec)Ordered By: Yovani Uriostegui on 10-30-2024 Lymphocytes/100 WBC (Bld) 4.1 % Low 19-41 [facility] MCV (mean corpuscular volume ) determinationOrdered By: Yovani Uriostegui on 10-30-2024 MCV (RBC) [Entitic vol] 88.8 fL 81-99 [facility] Mean corpuscular hemoglobin (MCH) determinationOrdered By: Yovani Uriostegui on 10-30-2024 MCH (RBC) [Entitic mass] 30.3 pg 27.0-32.0 [facility] Mean corpuscular hemoglobin concentration (MCHC) determinationOrdered By: Yovani Uriostegui on 10-30-2024 MCHC (RBC) [Mass/Vol] 34.1 g/dL 32-36 [facility] Mean platelet volume determi nationOrdered By: Yovani Uriostegui on 10-30-2024 Platelet mean volume (Bld) [Entitic vol] 8.2 fL 6.2-12.0 [facility] Monocyte percentageOrdered B y: Yovani Uriostegui on 10-30-2024 Monocytes/100 WBC (Bld) 3.4 % 0-10 [facility] Neutrophil percentageOrdered By: Yovani Uriostegui on 10-30-2024 Neutrophils/100 WBC (Bld) 91.2 % High 47-70 [facility] Nucleated red blood cell per centageOrdered By: Yovani Uriostegui on 10-30-2024 Nucleated RBC/100 WBC (Bld) [Ratio] 0 % 0-5 [facility] Platelet countOrdered By: Abi Uriostegui on 10-30-2024 Platelets (Bld) [#/Vol] 249 10*3/uL 150-450 [facility] Potassium measurementOrdered By: Yovani Uriostegui on 10-30-2024 Potassium [Moles/Vol] 3.6 mmol/L 3.5-5.1 [facility] RBC Auto (Bld) [#/Vol]Ordere d By: Yovani Uriostegui on 10-30-2024 RBC (Bld) [#/Vol] 4.46 10*6/uL 4.2-5.4 [facility] Serum anion gap measurementO rdered By: Yovani Uriostegui on 10-30-2024 Anion gap [Moles/Vol] 9 mmol/L 5-15 [facility] Serum globulin measurementOr dered By: Yovani Uriostegui on 10-30-2024 Globulin (S) [Mass/Vol] 4.1 g/dL 2.2-4.2 [facility] Serum or plasma alanine comer otransferase (ALT) measurementOrdered By: Yovani Uriostegui on 10-30-2024 ALT [Catalytic activity/Vol] 13 U/L 13-56 [facility] Serum or plasma albumin jay urement (mass/volume)Ordered By: Yovani Uriostegui on 10-30-2024 Albumin [Mass/Vol] 2.9 g/dL Low 3.2-5.0 [facility] Serum or plasma alkaline sami sphatase measurementOrdered By: Yovani Uriostegui on 10-30-2024 ALP [Catalytic activity/Vol] 57 U/L 45-117 [facility] Serum or plasma calcium jay urement (mass/volume)Ordered By: Yovani Uriostegui on 10-30-2024 Calcium [Mass/Vol] 8.8 mg/dL 8.5-10.1 [facility] Serum or plasma creatinine m easurement (mass/volume)Ordered By: Yovani Uriostegui on 10-30-2024 Creatinine [Mass/Vol] 0.54 mg/dL Low 0.55-1.02 [facility] Comment on above: The validity of the calculated GFR & GFRAA in patients over 70 years has not been determined. Clinical correlation is essential. Serum or plasma urea nitroge n measurement (mass/volume)Ordered By: Yovani Uriostegui on 10-30-2024 Urea nitrogen [Mass/Vol] 11 mg/dL 7-18 [facility] Sodium levelOrdered By: Fabio Uriostegui on 10-30-2024 Sodium [Moles/Vol] 136 mmol/L 136-145 [facility] Total proteinOrdered By: Hal Uriostegui on 10-30-2024 Protein [Mass/Vol] 7.0 g/dL 6.4-8.2 [facility] White blood cell (WBC) count Ordered By: Yovani Uriostegui on 10-30-2024 WBC (Bld) [#/Vol] 10.2 10*3/uL 4.4-11.0 [facility] CNPNon 10-26-2024 CNPN Telephone (OBGYWM) ----- LEELEE ZAMORA ([id number]) 1995 F Date Time Provider Department 10/26/24 TAHMINA DUMONT During your visit today, we recorded the following information about you: Marietta Werner, TERRY 10/26/2024 12:22 PM Signed 17w4d Patient was seen at [facility] ER yesterday because she fell. States that [...] leave message because voicemail not set up. [employer] message sent. Lenin Decker RN Allergies As [...] Assessed Reason for Visit: Question (OB Question) [4503] Prescriptions as of 10/27/2024 - aspirin, enteric coated (ECOTRIN LOW STRENGTH) 81 mg EC tablet Take 1 tablet by mouth once daily. - lactobacillus comb no.10 20 billion cell cap Take 2 capsules by mouth once daily for 14 days. - PNV 690-ofyoh-ezehz-3-fish oil 400-32.5 mcg-mg chew Problem List As [...] Encounter Status:Closed by LENIN DECKER on 10/27/24 Normal [facility] Emergency Department Summary on 10-25-2024 Emergency Department Summary [facility] Medical Records Department [address] [place] [address] Emergency Department Summary 10/25/24 MR#: [id number] Acct: [id number] Name: LEELEE ZAMORA Rep #: [id number] : 1995 29 From: Yovani Uriostegui DO [...] baby and therefore comes in for evaluation [facility] Medical History Hypotension Dizziness Vitamin D deficiency [...] reported g (more content not included)... Normal [facility] CNCOon 10-20-2024 CNCO Letter Text Normal [facility] Padma 10-13-2024 CNPN Telephone (OBGYWM) ----- LEELEE ZAMORA ([id number]) 1995 F Date Time Provider Department 10/13/24 ANGELA PAUL OBGYWJeffrey During your visit today, we recorded the following information about you: Tatyana Aponte RN 10/13/2024 4:23 PM Signed Breast pump request received via [employer]. Order to provider to sign. TERRY Borrego [...] tablet by mouth once daily. - PNV 344-epaoy-tsjpw-3-fish oil 400-32.5 mcg-mg chew Problem List As [...] Encounter Status:Closed by TATYANA APONTE on 10/17/24 [facility] CNOVponcho 10-12-2024 CNOV Office Visit (UCWSTR ) ----- LEELEE ZAMORA ([id number]) 1995 F Date Time Provider Department 10/12/24 3:00 PM NUNO MADRID UCWSTR During your visit today, we recorded the following information about you: Temperature Pulse Respiration Blood pressure 98 degrees 83/minute 18/minute 117/81 Weight 106.6 kg Nuno Madrid PA-C 10/12/2024 3:19 PM Signed Subjective Leelee Zamora is a 29 year [...] which included preparing to see the patient, pyac-sl-jnxz patient care, completing clinical documentation, performing a [...] tablet by mouth once daily. - PNV 065-xwbne-pjzkv-3-fish oil 400-32.5 mcg-mg chew Problem List As Of Date 10/12/2024 Noted Resolved Class 2 obesity without serious co (more content not included)... Normal [facility] Emergency Department Summary on 10-12-2024 Emergency Department Summary [facility] Medical Records Department [address] [place] [address] Emergency Department Summary 10/12/24 MR#: [id number] Acct: [id number] Name: LEELEE ZAMORA Rep #: [id number] : 1995 29 From: Jayro Brooks DO [...] that the infection is affecting the fetus. [facility] Medical History Hypotension Dizziness Vitamin D deficiency [...] ED: Y (more content not included)... Normal [facility] 12 Lead EKG performed by [facility] on 09-28-2024 12 Lead EKG performed by [facility] [address] [place] [address] 12 Lead EKG performed by [facility] 09/28/24 145 MR#: [id number] Acct: [id number] Name: LEELEE ZAMORA Rep #: [id number] : 1995 29 From: David Michael MD Attending Dr: Dr. David Michael MD Status: DEP A MB Ordering Dr: David Michael MD Date: 09/28/24 [place] [facility] F C Admitted: [facility]/12 Lead EKG performed by [facility] ECG Report Interpretation -Sinus Rhythm WITHIN NORMAL LIMITSElectronically signed on 10/06/2024 at 09:55 by David Michael [employer] Version 8610 10/06/24 0956 Date David Michael MD CC: Dr. Alfredo Barroso MD Date Dictated: 09/28/241450 Date Transcribed: 09/28/241450 Quality Control Tech: CO Signed Normal [facility] Cardiology Visit Reporton Cardiology Visit Report [facility] [address] [place] [address] OFFICE VISIT Date of Service: 09/28/24 MR#: [id number] Acct: [id number] Name: LEELEE ZAMORA Rep #: [id number] : 1995 Provider: Dr. David Michael MD Age/Sex: 29/F Location: [facility] Status: Signed HPI HPI History of Present Illness Details: 29-year-old lady who says that she is 3 months and says that she was having some dizziness and presyncopal episodes and her primary care physician asked her to see a transitional studies instructor. She does not remember whether is the primary care physician or the POT ROOM TAPPER. 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 Normal [facility] Bacteria Ur Culton Bacteria identified Cx Nom (U) ORGANISM ID: 1 10,000 -<50,000 CFU/ml Normal urogenital mark Normal [facility] Comment on above: Performed By: #### 6 30-4 ####[facility] LABCLIA [id number] [address] [facility] nuchal translucency me asured by USon 09-19-2024 Indication First trimester anatomic survey, Maternal obesity, BMI >30, History of gestational diabetes Impression The patient is referred for a first trimester anatomy scan including nuchal translucency measurement as clinically indicated. - Single, live, intrauterine . - [place] rump length measurement is consistent with the [...] view: normal 4-chamber view with color: normal 2-ncabqs-qfzgsuv view: normal Abdominal cord insertion: normal Stomach: [...] Read By: [place] M.D. MATERNAL MEDICINE [facility] Radiology Study observation (narrative) [facility] UA DIP, URINE (POC)on 2023 BILIRUBIN UA (POCT) Negative Negative [facility] CLARITY UA (POCT) Clear [facility] COLOR UA (POCT) Yellow [facility] GLUCOSE UA (POCT) Negative Negative mg/dL [facility] Hemoglobin Ql (U) Negative Negative [facility] KETONE UA (POCT) Negative Negative mg/dL [facility] LEUKOCYTES UA (POCT) Negative Negative [facility] NITRITE UA (POCT) Negative Negative [facility] PH UA (POCT) 6.5 4.5 - 8.0 [facility] Protein Ql (U) Negative Negative mg/dL [facility] SPECIFIC GRAVITY UA (POCT) 1.010 1.005 - 1.030 [facility] UROBILINOGEN UA (POCT) 0.2 Normal E.U./dL [facility] Location:[facility], [address], [place], [address] [facility] (UCWSTR) ----- LEELEE ZAMORA ([id number]) 1995 F Date Time Provider Department 09/16/24 MICHAEL ROSADO During your visit today, we recorded the following information about you: Michael Rosado APRN.WALKING DRAGLINE OPERATOR 09/16/2024 7:32 AM Signed Please notify positive for rsv. Treat as cold. Refer to mud engineer recommended otc medication for relief. F/u for [...] tablet by mouth once daily. - PNV 993-damrv-ixosv-3-fish oil 400-32.5 mcg-mg chew Problem List As [...] Encounter Status:Closed by ZITA ROBINS on 09/16/24 [facility] CNOVon 09-15-2024 CNOV Office Visit (UCWSTR ) ----- LEELEE ZAMORA ([id number]) 1995 F Date Time Provider Department 09/15/24 12:15 PM MAURO LOVE [facility] During your visit today, we recorded the following information about you: Temperature Pulse Respiration Blood pressure 98.2 degrees 87/minute 20/minute 101/58 Weight 102 kg Mauro Love PA 09/15/2024 1:01 PM Signed This note was created using [employer]. Subjective Leeleecrissy Zamora is a 29 year old female. [...] 12 weeks , has not taken anything xfkd-khx-numimby for symptoms. No other complaint. PAST MEDICAL [...] Peanut, Tree Nuts, and Morphine MEDICATIONS PNV 346-prscl-ixnxw-3-fish oil 400-32.5 mcg-mg chew aspirin, enteric coated [...] Mouth/Throat: Mouth: (more content not included)... Normal [facility] COVID AND INFLUENZA A/B AND RSV PCR, ROUTINEon 09-15-2024 SARS-CoV-2 (COVID-19) RNA SANJEEV+probe Ql (Unsp spec) SARS-COV-2 (AGENT OF COVID-19) RNA: Not detected INFLUENZA A RNA: Not detected INFLUENZA B RNA: Not detected RESPIRATORY SYNCYTIAL VIRUS (RSV) RNA: Detected Abnormal [facility] Comment on above: Performed By: #### C VFLRS ####[facility] LABCLIA [id number] [facility] [id number] [id number] [place] STREP A MOLECULAR (POC)on Procedural Control Valid [facility] Strep A (POCT) Negative Negative [facility] CARRIER SCREEN, STANDARDon 1 11-05-2023 CARRIER SCREEN RESULTS View results in Scanned Documents link when available. Normal [facility] Comment on above: Order Comment: Speci men Type: BLOOD SPECIMENOrdering Facility: [facility] Address: [address] [place] [address] Performed By: #### C RRSCN ####MYRIADCLIA [id number] [place] [address] CBC W Auto Differential pane l (Bld)on 09-05-2024 Basophils (Bld) [#/Vol] 10*3/uL Normal <0.11 [facility] Comment on above: Order Comment: Speci men Type: BLOOD SPECIMENOrdering Facility: [facility] Address: [address] [place] [address] Performed By: #### 5 7021-8 ####[facility] [id number] [place] [address] [place] Basophils/100 WBC (Bld) 0.3 % Normal [facility] Comment on above: Order Comment: Speci men Type: BLOOD SPECIMENOrdering Facility: [facility] Address: [address] [place] [address] Performed By: #### 5 7021-8 ####[facility] [id number] [place] [address] [place] Differential cell count method Nom (Bld) Auto Normal [facility] Comment on above: Order Comment: Speci men Type: BLOOD SPECIMENOrdering Facility: [facility] Address: [address] [place] [address] Performed By: #### 5 7021-8 ####[facility]ITALL[facility] [id number] [place] [address] [place] Eosinophils (Bld) [#/Vol] 0.05 10*3/uL Normal <0.46 [facility] Comment on above: Order Comment: Speci men Type: BLOOD SPECIMENOrdering Facility: [facility] Address: [address] [place] [address] Performed By: #### 5 7021-8 ####[facility] HOSPITALJACKIELIA [id number] [place] [address] [place] Eosinophils/100 WBC (Bld) 0.6 % Normal [facility] Comment on above: Order Comment: Speci men Type: BLOOD SPECIMENOrdering Facility: [facility] Address: [address] [place] [address] Performed By: #### 5 7021-8 ####[facility] [id number] [place] [address] [place] Erythrocyte distribution width (RBC) [Ratio] 12.4 % Normal 11.5-15.0 [facility] Comment on above: Order Comment: Speci men Type: BLOOD SPECIMENOrdering Facility: [facility] Address: [address] [place] [address] Performed By: #### 5 7021-8 ####[facility] HOSPITALCORRINE [id number] [place] [address] [place] Hematocrit (Bld) [Volume fraction] 39.3 % Normal 36.0-46.0 [facility] Comment on above: Order Comment: Speci men Type: BLOOD SPECIMENOrdering Facility: [facility] Address: [address] [place] [address] Performed By: #### 5 7021-8 ####[facility] HOSPITALNCLIA [id number] [place] [address] [place] Hemoglobin (Bld) [Mass/Vol] 13.1 g/dL Normal 11.5-15.5 [facility] Comment on above: Order Comment: Speci men Type: BLOOD SPECIMENOrdering Facility: [facility] Address: [address] [place] [address] Performed By: #### 5 7021-8 ####[facility]ITALNCENCOM[facility] [id number] [place] [address] [place] Immature granulocytes (Bld) [#/Vol] 0.06 10*3/uL Normal <0.10 [facility] Comment on above: Order Comment: Speci men Type: BLOOD SPECIMENOrdering Facility: [facility] Address: [address] [place] [address] Performed By: #### 5 7021-8 ####[facility] [id number] [place] [address] [place] Immature granulocytes/100 WBC (Bld) 0.8 % Normal [facility] Comment on above: Order Comment: Speci men Type: BLOOD SPECIMENOrdering Facility: [facility] Address: [address] [place] [address] Performed By: #### 5 7021-8 ####[facility] [id number] [place] [address] [place] Lymphocytes (Bld) [#/Vol] 1.57 10*3/uL Normal 1.00-4.00 [facility] Comment on above: Order Comment: Speci men Type: BLOOD SPECIMENOrdering Facility: [facility] Address: [address] [place] [address] Performed By: #### 5 7021-8 ####[facility] [id number] [place] [address] [place] Lymphocytes/100 WBC (Bld) 19.8 % Normal [facility] Comment on above: Order Comment: Speci men Type: BLOOD SPECIMENOrdering Facility: [facility] Address: [address] [place] [address] Performed By: #### 5 7021-8 ####[facility] DOMINIQUEKOPPERSTONCORRINE [id number] [address] [facility] MCH (RBC) [Entitic mass] 30.3 pg Normal 26.0-34.0 [facility] Comment on above: Order Comment: Speci men Type: BLOOD SPECIMENOrdering Facility: [facility] Address: [address] [place] [address] Performed By: #### 5 7021-8 ####[facility]ITALNCENCOMPASS [facility] [id number] [place] [address] [place] MCHC (RBC) [Mass/Vol] 33.3 g/dL Normal 30.5-36.0 [facility] Comment on above: Order Comment: Speci men Type: BLOOD SPECIMENOrdering Facility: [facility] Address: [address] [place] [address] Performed By: #### 5 7021-8 ####[facility] [id number] [place] [address] [place] MCV (RBC) [Entitic vol] 91.0 fL Normal 80.0-100.0 [facility] Comment on above: Order Comment: Speci men Type: BLOOD SPECIMENOrdering Facility: [facility] Address: [address] [place] [address] Performed By: #### 5 7021-8 ####[facility] HOSPITALNCLI [id number] [place] [address] [place] Monocytes (Bld) [#/Vol] 0.31 10*3/uL Normal <0.87 [facility] Comment on above: Order Comment: Speci men Type: BLOOD SPECIMENOrdering Facility: [facility] Address: [address] [place] [address] Performed By: #### 5 7021-8 ####[facility] DOMINIQUEWJACKIELIA [id number] [place] [address] [place] Monocytes/100 WBC (Bld) 3.9 % Normal [facility] Comment on above: Order Comment: Speci men Type: BLOOD SPECIMENOrdering Facility: [facility] Address: [address] [place] [address] Performed By: #### 5 7021-8 ####[facility] HOSPITALFREYAA [id number] [place] [address] [place] Neutrophils (Bld) [#/Vol] 5.91 10*3/uL Normal 1.45-7.50 [facility] Comment on above: Order Comment: Speci men Type: BLOOD SPECIMENOrdering Facility: [facility] Address: [address] [place] [address] Performed By: #### 5 7021-8 ####[facility] FLORIDAA [id number] [place] [address] [place] Neutrophils/100 WBC (Bld) 74.6 % Normal [facility] Comment on above: Order Comment: Speci men Type: BLOOD SPECIMENOrdering Facility: [facility] Address: [address] [place] [address] Performed By: #### 5 7021-8 ####WHITE HOSPITALFREYAA [id number] [place] [address] [place] Nucleated RBC (Bld) [#/Vol] 10*3/uL Normal <0.01 [facility] Comment on above: Order Comment: Speci men Type: BLOOD SPECIMENOrdering Facility: [facility] Address: [address] [place] [address] Performed By: #### 5 7021-8 ####[facility] HOSPITALNCLIA [id number] [place] [address] [place] Nucleated RBC/100 WBC (Bld) [Ratio] 0.0 /100 WBC Normal [facility] Comment on above: Order Comment: Speci men Type: BLOOD SPECIMENOrdering Facility: [facility] Address: [address] [place] [address] Performed By: #### 5 7021-8 ####[facility]ITALNC[facility] [id number] [place] [address] [place] Platelet mean volume (Bld) [Entitic vol] 8.3 fL Low 9.0-12.7 [facility] Comment on above: Order Comment: Speci men Type: BLOOD SPECIMENOrdering Facility: [facility] Address: [address] [place] [address] Performed By: #### 5 7021-8 ####[facility] [id number] [place] [address] [place] Platelets (Bld) [#/Vol] 280 10*3/uL Normal 150-400 [facility] Comment on above: Order Comment: Speci men Type: BLOOD SPECIMENOrdering Facility: [facility] Address: [address] [place] [address] Result Comment: No c lot detected. Performed By: #### 5 7021-8 ####[facility] [id number] [place] [address] [place] RBC (Bld) [#/Vol] 4.32 10*6/uL Normal 3.90-5.20 [facility] Comment on above: Order Comment: Speci men Type: BLOOD SPECIMENOrdering Facility: [facility] Address: [address] [place] [address] Performed By: #### 5 7021-8 ####[facility] HOSPITALNCLI [id number] [place] [address] [place] WBC (Bld) [#/Vol] 7.92 10*3/uL Normal 3.70-11.00 [facility] Comment on above: Order Comment: Speci men Type: BLOOD SPECIMENOrdering Facility: [facility] Address: [address] [place] [address] Performed By: #### 5 7021-8 ####[facility] V[facility]AL [facility] [id number] [place] [address] [place] HBV surface Ag Ser Qlon 08-13 HBV surface Ag Ql (S) Negative Normal Negative [facility] Comment on above: Order Comment: Speci men Type: BLOOD SPECIMENOrdering Facility: [facility] Address: [address] [place] [address] Performed By: #### 3 1201-7, 5195-3, 52210-7 ####[facility] LABCLIA [id number] [place] [address] [place] HCV Ab Ser Qlon 09-05-2024 HCV Ab Ql (S) Negative Normal Negative [facility] Comment on above: Order Comment: Speci men Type: BLOOD SPECIMENOrdering Facility: [facility] Address: [address] [place] [address] Result Comment: The result suggests no evidence of active infection with Hepatitis C virus. Should recent infection be suspected, repeat testing may be considered 4-6 weeks after this draw. Performed By: #### 1 6128-1 ####[facility] LABCLIA [id number] [place] [address] [place] HIV 1+2 Ab IA Qlon HIV 1 and 2 Ab IA.rapid Nom (S/P/Bld) Normal [facility] Comment on above: Order Comment: Speci men Type: BLOOD SPECIMENOrdering Facility: [facility] Address: [address] [place] [address] Result Comment: Test not indicated. Performed By: #### 3 1201-7, 5195-3, 14834-5 ####[facility] LABCLIA [id number] [place] [address] [place] HIV 1+2 Ab+HIV1 p24 Ag IA Ql Non-Reactive Normal Nonreactive [facility] Comment on above: Order Comment: Speci men Type: BLOOD SPECIMENOrdering Facility: [facility] Address: [address] [place] [address] Performed By: #### 3 1201-7, 5195-3, 46654-4 ####[facility] LABIA [id number] [address] [place] HIV immunoassay testing algorithm interpretation (S/P/Bld) [Interp] Normal [facility] Comment on above: Order Comment: Speci men Type: BLOOD SPECIMENOrdering Facility: [facility] Address: [address] [place] [address] Result Comment: No e vidence of HIV-1 or HIV-2 infection. Should recent infection be suspected, repeat testing may be considered 2-3 weeks after this draw. [place] Rev. Code 3701.243(E): This information has been [...] test results or diagnoses. Performed By: #### 3 1201-7, 5195-3, 93462-8 ####[facility] LABIA [id number] [place] [address] [place] HbA1c (Bld)on 09-05-2024 Average glucose Estimated from glycated hemoglobin (Bld) [Mass/Vol] 88 mg/dL Normal [facility] Comment on above: Order Comment: Speci men Type: BLOOD SPECIMENOrdering Facility: [facility] Address: [address] [place] [address] Result Comment: eAG: (Estimated average glucose) is a calculated value from HgbA1c and is food products sales representative of the average blood glucose level in the last 2-3 month period. Performed By: #### 5 5454-3 ####[facility] LABCLIA [id number] [place] [address] [place] HbA1c (Bld) [Mass fraction] 4.7 % Normal 4.3-5.6 [facility] Comment on above: Order Comment: Speci men Type: BLOOD SPECIMENOrdering Facility: [facility] Address: [address] [place] [address] Result Comment: Amer ican Diabetes Association guidelines indicate that patients with HgbA1c in the range 5.7-6.4% are at increased risk for development of diabetes, and intervention by lifestyle modification may be beneficial. HgbA1c greater or equal to 6.5% is considered diagnostic of diabetes. Performed By: #### 5 5454-3 ####[facility] LABCLIA [id number] [place] [address] [place] [id number] PLUSon 09-05-2024 Cell-free DNA./Cell-free DNA.total Dosage of chromosome-specific cfDNA (cfDNA) [Molar fraction] 21% Normal [facility] Comment on above: Order Comment: Speci men Type: BLOOD SPECIMENOrdering Facility: [facility] Address: [address] [place] [address] Performed By: #### M AT21 ####[facility] LABCLIA [id number] [place] [address] Chr 13+18+21+X+Y aneuploidy Dosage of chromosome-specific cfDNA Ql (cfDNA) Negative Normal [facility] Comment on above: Order Comment: Speci men Type: BLOOD SPECIMENOrdering Facility: [facility] Address: [address] [place] [address] Performed By: #### M AT21 ####[facility] LABCLIA [id number] [place] [address] Chr 21 trisomy Dosage of chromosome-specific cfDNA Ql (cfDNA) Negative Normal [facility] Comment on above: Order Comment: Speci men Type: BLOOD SPECIMENOrdering Facility: [facility] Address: [address] [place] [address] Performed By: #### M AT21 ####[facility] LABCLIA [id number] [place] [address] Chr X and Y aneuploidy risk Sequencing Ql (cfDNA) [Interp] Not detected Normal [facility] Comment on above: Order Comment: Speci men Type: BLOOD SPECIMENOrdering Facility: [facility] Address: [address] [place] [address] Result Comment: Not Detected Not Detected Performed By: #### M AT21 ####[facility] LABCLIA [id number] [place] [address] Citation Alexandru (Reference lab test) Comment Normal [facility] Comment on above: Order Comment: Speci men Type: BLOOD SPECIMENOrdering Facility: [facility] Address: [address] [place] [address] Result Comment: 1. P ying DANIELLE, et al. Ale Med. 2012;14(3):296-305. 2. Jason GAINES et al. Prenat Diag. 2013;33(6):591-597. 3. Ludin C, et al. Clin Chem. 2015 Apr;61(4):608-616. 4. Danelle DANIELLE, et al. Ale Med. 2011;13(11):913-920. 5. ACOG/SMFM Practice Bulletin No. 226, Jul 2020. Performed By: #### M AT21 ####[facility] LABCLIA [id number] [place] [address] Gestational age Estimated from conception date Roach Normal [facility] Comment on above: Order Comment: Speci men Type: BLOOD SPECIMENOrdering Facility: [facility] Address: [address] [place] [address] Performed By: #### M AT21 ####[facility] LABCLIA [id number] [place] [address] GESTATIONALAGE AGE > OR = 9W Yes Normal [facility] Comment on above: Order Comment: Speci men Type: BLOOD SPECIMENOrdering Facility: [facility] Address: [address] [place] [address] Performed By: #### M AT21 ####[facility] LABCLIA [id number] [place] [address] Laboratory comment Alexandru (Report) Comment Normal [facility] Comment on above: Order Comment: Festus lind Type: BLOOD SPECIMENOrdering Facility: [facility] Address: [address] [place] [address] Result Comment: The MaterniT(R) 21 PLUS laboratory-developed test (LDT) analyzes circulating cell-free DNA from a maternal blood sample. This test is used for screening purposes and not diagnostic. Clinical correlation is recommended. Validation data on twin pregnancies is limited and the ability of this test to detect aneuploidy in higher multiple gestations has not yet been validated. Performed By: #### M AT21 ####[employer] LABEvery1MobileIA [id number] [place] [id number] clinical data management director name Nom (Provider) Comment Normal [facility] Comment on above: Order Comment: Festus lind Type: BLOOD SPECIMENOrdering Facility: [facility] Address: [address] [place] [address] Result Comment: This specimen showed an expected representation of chromosome 21, 18 and 13 material. Clinical correlation is suggested. Comment Livan Ramirez MD, PhD, Director, [employer] Performed By: #### M AT21 ####[facility] LABCLIA [id number] [place] [id number] LIMITATIONS OF THE TEST Comment Normal [facility] Comment on above: Order Comment: Festus lind Type: BLOOD SPECIMENOrdering Facility: [facility] Address: [address] [place] [address] Result Comment: Whil e the results of these tests are highly [...] Xaparin(R), Clexane(R) and Fragmin(R)). Performed By: #### M AT21 ####[facility] LABCLIA [id number] [facility] [place] [address] Monosomy X risk Dosage of chromosome-specific cfDNA Ql (Plasma cell-free+WBC DNA) [Interp] Not detected Normal [facility] Comment on above: Order Comment: Speci men Type: BLOOD SPECIMENOrdering Facility: [facility] Address: [address] [place] [address] [place] [address] Performed By: #### M AT21 ####[facility] LABCLIA [id number] [place] [address] NEGATIVE PREDICTIVE VALUE Note Normal [facility] Comment on above: Order Comment: Speci men Type: BLOOD SPECIMENOrdering Facility: [facility] Address: [address] [place] [address] Result Comment: The Negative Predictive Value (NPV) for trisomy 21, 18, and 13 is greater than 99%. The NPV for SCA and ESS cannot be calculated as SCA and ESS are only reported when an abnormality is detected. Performed By: #### M AT21 ####[facility] LABCLIA [id number] [place] [address] NOTE Comment Normal [facility] Comment on above: Order Comment: Speci men Type: BLOOD SPECIMENOrdering Facility: [facility] Address: [address] [place] [address] Result Comment: See Notes [employer] is a subsidiary of [employer], using the brand [employer]. This test was developed and its performance characteristics determined by [employer]. It has not been cleared or approved by the Food and Drug Administration. This laboratory is certified under the Clinical Laboratory Improvement Amendments (CLIA) as qualified to perform high complexity clinical laboratory testing and accredited by the [employer] (CAP). If there is future clinical need for adding MaterniT GENOME testing, this specimen will be available until term. [facility] samples will not be retained beyond 60 days. [facility] patients will have to send a new sample for re-sequencing ([facility] Test Code: [id number]). Performed By: #### M AT21 ####[facility] LABIA [id number] [place] [address] PERFORMANCE CHARACTERISTICS Note Normal [facility] Comment on above: Order Comment: Speci men Type: BLOOD SPECIMENOrdering Facility: [facility] Address: [address] [place] [address] Result Comment: ! Sex ! Accuracy: 99.4% [...] ! ! ! * As reported in [facility] database nstd37 [https://www.ncbi.nlm.nih.gov/dbvar/studies/nstd37/ ] # Estimated Sensitivity. Sensitivity estimated across the observed size distribution of each syndrome [per ISCA database nstd37] and across the range of fractions observed in routine clinical NIPT. Actual sensitivity can also be influenced by other factors such as the size of the event, total sequence counts, amplification bias, or sequence bias. ## Roach gestation only. Performed By: #### M AT21 ####[facility] LABCLIA [id number] [place] [address] POSITIVE PREDICTIVE VALUE N/A Normal [facility] Comment on above: Order Comment: Speci men Type: BLOOD SPECIMENOrdering Facility: [facility] Address: [address] [place] [address] Performed By: #### M AT21 ####[facility] LABCLIA [id number] [place] [id number] Reference Lab Test Method Comment Normal [facility] Comment on above: Order Comment: Speci men Type: BLOOD SPECIMENOrdering Facility: [facility] Address: [address] [place] [address] Result Comment: See Notes Circulating cell-free DNA [...] chromosomes 16 and 22. Performed By: #### M AT21 ####[facility] LABCLIA [id number] [place] [address] Sex Dosage of chromosome-specific cfDNA Nom (cfDNA) Comment Normal [facility] Comment on above: Order Comment: Speci men Type: BLOOD SPECIMENOrdering Facility: [facility] Address: [address] [place] [address] Result Comment: Cons istent with Male Performed By: #### M AT21 ####[facility] LABCLIA [id number] [place] [address] Test performance information Alexandru (Unsp spec) Comment Normal [facility] Comment on above: Order Comment: Festus lind Type: BLOOD SPECIMENOrdering Facility: [facility] Address: [address] [place] [address] Result Comment: The performance characteristics of the MaterniT(R) 21 PLUS laboratory-developed test (LDT) have been determined in a clinical validation study with women at increased risk for chromosomal aneuploidy.[1-4] Performed By: #### M AT21 ####[facility] LABCLIA [id number] [place] [address] Trisomy 13 risk Dosage of chromosome-specific cfDNA Ql (cfDNA) [Interp] Negative Normal [facility] Comment on above: Order Comment: Festus lind Type: BLOOD SPECIMENOrdering Facility: [facility] Address: [address] [place] [address] Performed By: #### M AT21 ####[facility] LABCLIA [id number] [place] [address] Trisomy 18 risk Dosage of chromosome-specific cfDNA Ql (Plasma cell-free+WBC DNA) [Interp] Negative Normal [facility] Comment on above: Order Comment: Festus lind Type: BLOOD SPECIMENOrdering Facility: [facility] Address: [address] [place] [address] Performed By: #### M AT21 ####eThor[facility] LABCLIA [id number] [place] [address] RUBELLA IGG ANTIBODYon 09-05 RUBELLA IGG AB, QUAL Positive Normal Positive [facility] Comment on above: Order Comment: Festus lind Type: BLOOD SPECIMENOrdering Facility: [facility] Address: [address] [place] [address] Result Comment: The result suggests recent or past exposure to Rubella virus or history of Rubella vaccination. Positive result may also be seen due to presence of passively-transferred antibodies. Please correlate with patient's history. Performed By: #### R UBIGG ####[facility] LABCLIA [id number] [place] [address] [place] Reagin and Treponema pallidu m IgG and IgM [Interp]on 09-05-2024 T. pallidum IgG+IgM IA Ql (S) Non-Reactive Normal Nonreactive [facility] Comment on above: Order Comment: Speci men Type: BLOOD SPECIMENOrdering Facility: [facility] Address: [address] [place] [address] Performed By: #### 3 1201-7, 5195-3, 08382-7 ####[facility] LABCLIA [id number] [place] [address] [place] Reagin+T pallidum IgG+IgM Se rPl-Impon 09-05-2024 Reagin and Treponema pallidum IgG and IgM [Interp] Cannot exclude recent Treponemal infection if specimen collected within 7-10 days after appearance of suspect lesions or 2-3 weeks after an exposure. Clinical correlation is required. Normal [facility] Comment on above: Order Comment: Speci men Type: BLOOD SPECIMENOrdering Facility: [facility] Address: [address] [place] [address] Performed By: #### 3 1201-7, 5195-3, 33322-2 ####[facility] LABCLIA [id number] [place] [address] [place] TYPE + SCREEN PRENATALon ABO A Normal [facility] Comment on above: Order Comment: Speci men Type: BLOOD SPECIMENOrdering Facility: [facility] Address: [address] [place] [address] Performed By: #### T SPN ####CC [facility] BLOOD BANKCLIA [id number] [place] [address] [place] Rh Nom (Bld) Positive Normal [facility] Comment on above: Order Comment: Speci men Type: BLOOD SPECIMENOrdering Facility: [facility] Address: [address] [place] [address] Performed By: #### T SPN ####CC MAIN BLOOD BANKCLIA [id number] [place] [id number] [facility] TYPE AND SCREEN EXPIRATION 09/08/2024 23:59 Normal [facility] Comment on above: Order Comment: Speci men Type: BLOOD SPECIMENOrdering Facility: [facility] Address: [address] [place] [address] Performed By: #### T SPN ####CC MAIN BLOOD BANKCLIA [id number] [address] OF [place] POC RN TRAVELING ULTRASOUNDon 08-18-20 24 Indication Confirmation of intrauterine . Confirmation of [...] Read By: Jammie Funes CNP MATERNAL MEDICINE [facility] Radiology Study observation (narrative) [facility] CARDIOLIPIN IGG ABSon 2023 Cardiolipin IgG IA Qn (S) <9.0 Normal <15.0 [facility] Comment on above: Order Comment: Speci men Type: BLOOD SPECIMEN Ordering Facility: [facility] Address: [address] [place] [address] Result Comment: <15 GPL Negative 15-20 GPL Indeterminate >20 GPL Positive The following results were obtained with the [employer] Lite JUAN RAMON IgG III AUBREE. Cardiolipin IgG values obtained with the different manufacturers' assay methods may not be used interchangeably. The magnitude of the reported IgG levels cannot be correlated to an endpoint titer. Performed By: #### P TGEN #### [facility] CLIA [id number] [address] [place] [address] [place] CARDIOLIPIN IGM ABSon 2023 Cardiolipin IgM IA Qn (S) <9.0 Normal <12.5 [facility] Comment on above: Order Comment: Speci men Type: BLOOD SPECIMEN Ordering Facility: [facility] Address: [address] [place] [address] Result Comment: <12. 5 MPL Negative 12.5-20 MPL Indeterminate >20 MPL Positive The following results were obtained with the [employer] Lite JUAN RAMON IgM III AUBREE. Cardiolipin IgM values obtained with the different manufacturers' assay methods may not be used interchangeably. The magnitude of the reported IgM levels cannot be correlated to an endpoint titer. ??? Performed By: #### P TGEN #### [facility] CLIA [id number] [address] [place] [address] [place] COAG CORE PANEL BLDon 2023 aPTT Coag (PPP) [Time] 27.1 s Normal 23.0-32.4 [facility] Comment on above: Order Comment: Speci men Type: BLOOD SPECIMEN Ordering Facility: [facility] Address: [address] [place] [address] Performed By: #### P TGEN #### [facility] CLIA [id number] [address] [place] [address] [place] Fibrinogen Coag (PPP) [Mass/Vol] 422 mg/dL High 200-400 [facility] Comment on above: Order Comment: Speci men Type: BLOOD SPECIMEN Ordering Facility: [facility] Address: [address] [place] [address] Performed By: #### P TGEN #### [facility] CLIA [id number] [address] [place] [address] [place] INR Coag (PPP) [Relative time] 0.9 {INR} Normal 0.9-1.3 [facility] Comment on above: Order Comment: Speci men Type: BLOOD SPECIMEN Ordering Facility: [facility] Address: [address] [place] [address] Result Comment: Tara min K Antagonist (VKA) Therapeutic Range: INR 2 to 3 (Target INR of 2.5) Note: For patients treated with VKA drugs, such as warfarin, the [place] [employer] 2012 Guideline recommends [...] Chest 2012, 141:7S-47S Kirti RA, et al. [facility] 2017, 70: 252-289 Performed By: #### P TGEN #### [facility] CLIA [id number] [address] [place] [address] [place] PT Coag (PPP) [Time] 10.0 s Normal 9.7-13.0 [facility] Comment on above: Order Comment: Speci men Type: BLOOD SPECIMEN Ordering Facility: [facility] Address: [address] [place] [address] Result Comment: Froz en Plasma Aliquot Performed By: #### P TGEN #### [facility] CLIA [id number] [address] [place] [address] [place] CRP [facility] CRP [Mass/Vol] mg/L Normal <0.9 [facility] Comment on above: Order Comment: Festus lind Type: BLOOD SPECIMEN Ordering Facility: [facility] Address: [address] [place] [address] Performed By: #### P TGEN #### [facility] CLIA [id number] [address] [place] [address] [place] Cardiolipin IgA Ser IA-aCnco n 07-12-2024 Cardiolipin IgA IA Qn (S) <9.0 Normal <12.0 [facility] Comment on above: Order Comment: Festus lind Type: BLOOD SPECIMEN Ordering Facility: [facility] Address: [address] [place] [address] Result Comment: <12 APL Negative 12-20 APL Indeterminate >20 APL Positive The following results were obtained with the [employer] Lite JUAN RAMON IgA III AUBREE. Cardiolipin IgA values obtained with the different manufacturers' assay methods may not be used interchangeably. The magnitude of the reported IgA levels cannot be correlated to an endpoint titer. Performed By: #### P TGEN #### [facility] CLIA [id number] [address] [place] [address] [place] D dimer FEU PPP-mCncon 07-12 Fibrin D-dimer FEU (PPP) [Mass/Vol] 240 ng/mL FEU Normal <500 [facility] Comment on above: Order Comment: Festus lind Type: BLOOD SPECIMEN Ordering Facility: [facility] Address: [address] [place] [address] Performed By: #### P TGEN #### [facility] CLIA [id number] [address] [place] [address] [place] D-DIMERon 07-12-2024 Fibrin D-dimer FEU (PPP) [Mass/Vol] 240 NINF [facility] Fibrin D-dimer FEU (PPP) [Ma ss/Vol]on 07-12-2024 Interpretation and review of laboratory results Normal [facility] 500 ng/mL FEU is the D [...] et al. Chel Int Med 2016 165:253. [facility] HYPERCOAG PANELon 07-12-2024 Activated protein C resistance Coag (PPP) [Time ratio] 2.36 Ratio Normal >1.96 [facility] Comment on above: Order Comment: Festus lind Type: BLOOD SPECIMEN Ordering Facility: [facility] Address: [address] [place] [address] Performed By: #### H COAG #### [facility] CLIA [id number] [address] [place] [address] [place] Antithrombin actual/normal Chromogenic method (PPP) [Rel catalytic activity/Vol] 131 % Normal 84-138 [facility] Comment on above: Order Comment: Festus lind Type: BLOOD SPECIMEN Ordering Facility: [facility] Address: [address] [place] [address] Performed By: #### H COAG #### [facility] CLIA [id number] [address] [place] [address] [place] aPTT Coag (Bld) [Time] 27.0 s Normal 24.0-35.1 [facility] Comment on above: Order Comment: Festus lind Type: BLOOD SPECIMEN Ordering Facility: [facility] Address: [address] [place] [address] Performed By: #### H COAG #### [facility] CLIA [id number] [address] [place] [address] [place] aPTT W excess hexagonal phase phospholipid Coag (PPP) [Time] 50.6 seconds Normal 34.0-51.8 [facility] Comment on above: Order Comment: Speci men Type: BLOOD SPECIMEN Ordering Facility: [facility] Address: [address] [place] [address] Performed By: #### H COAG #### [facility] CLIA [id number] [address] [place] [address] [place] Coagulation factor VIII activity actual/normal Coag (PPP) [Relative time] 144 % Normal 50-173 [facility] Comment on above: Order Comment: Speci men Type: BLOOD SPECIMEN Ordering Facility: [facility] Address: [address] [place] [address] Performed By: #### H COAG #### [facility] CLIA [id number] [address] [place] [address] [place] Coagulation factor X activated act Coag Qn (PPP) <0.10 Normal <0.10 [facility] Comment on above: Order Comment: Speci men Type: BLOOD SPECIMEN Ordering Facility: [facility] Address: [address] [place] [address] Result Comment: This test was developed, and its performance characteristics determined by the [facility] Department of Pathology and Laboratory Medicine. It has not been cleared or approved by the FDA. The [facility] Department of Pathology and Laboratory Medicine is regulated under CLIA as qualified to perform high-complexity testing. This test is used for clinical purposes. It should not be regarded as investigational or for research. Performed By: #### H COAG #### [facility] CLIA [id number] [address] [place] [address] [place] Delta dRVVT Coag (PPP) [Time diff] 4.6 delta seconds Normal <7.1 [facility] Comment on above: Order Comment: Speci men Type: BLOOD SPECIMEN Ordering Facility: [facility] Address: [address] [place] [address] Performed By: #### H COAG #### [facility] CLIA [id number] [address] [place] [address] [place] dRVVT W excess hexagonal phase phospholipid actual/normal Coag (PPP) [Relative time] 46.0 seconds Normal 34.2-47.9 [facility] Comment on above: Order Comment: Speci men Type: BLOOD SPECIMEN Ordering Facility: [facility] Address: [address] [place] [address] Performed By: #### H COAG #### [facility] CLIA [id number] [address] [place] [address] [place] Protein C actual/normal Coag (PPP) [Relative time] 161 % High 76-147 [facility] Comment on above: Order Comment: Speci men Type: BLOOD SPECIMEN Ordering Facility: [facility] Address: [address] [place] [address] Performed By: #### H COAG #### [facility] CLIA [id number] [address] [place] [address] [place] Protein S actual/normal Coag (PPP) [Relative time] 90 % Normal 59-152 [facility] Comment on above: Order Comment: Speci men Type: BLOOD SPECIMEN Ordering Facility: [facility] Address: [address] [place] [address] Performed By: #### H COAG #### [facility] CLIA [id number] [address] [place] [address] [place] Thrombin time Coag (PPP) [Time] <16.8 Normal <18.6 [facility] Comment on above: Order Comment: Speci men Type: BLOOD SPECIMEN Ordering Facility: [facility] Address: [address] [place] [address] Performed By: #### H COAG #### [facility] CLIA [id number] [address] [place], [place] [address] [facility] PROTHROMBIN GENE PCRon 07-12 PROTHROMBIN GENE MUTATION Normal [facility] Comment on above: Order Comment: Speci men Type: BLOOD SPECIMEN Ordering Facility: [facility] Address: [address] [place] [address] Result Comment: Prot hrombin Gene Mutation Laboratory Accession Number: [id number] Result: NORMAL Interpretation: The DNA sample is negative for the c.*97G>A variant (legacy name 78083Y>A) in the 3' untranslated region of the Factor II (F2) gene. This result is not associated with an increased risk of thromboembolic disease. Thromboembolic disease is a multifactorial disorder and other causes are not excluded by this result. Methodology: Isolated Genomic DNA from the patient's blood specimen is evaluated for the c*97G>A (g.10151710) variant of the F2 gene [RefSeq [id number];GRCh38/hg38] by multiplex polymerase chain reaction (PCR) followed by melting curve analysis. Limitations: This assay is designed to detect the c.*97G>A (80855H>A) variant in the F2 gene. Uncommon variants or single nucleotide polymorphisms may affect binding of probes and may rarely result in false negative, false positive or indeterminate results. This assay does not detect other disease-associated rare variants in F2 or other causes of thromboembolic disease. Disclaimer: This test was developed and its performance characteristics determined by [facility]'s Pathology and Laboratory Medicine Department. It has not been cleared or approved by the FDA. [facility]'s Pathology and Laboratory Medicine Department is regulated under CLIA as certified to perform high-complexity testing. This test is used for clinical purposes. It should not be regarded as investigational or for research. Testing and interpretation performed at [facility], [address] [place] [address]. CLIA Number: [id number] References: 1) Inheritied Thrombophilias in . ACOG Practice Bulletin. No. 197. [place] [employer]. Obsete Gynecol 2018;132:e18-34. 2) Kena SR, Hubert FR, Leonardo PH, and Mirella MCKAY. A common genetic variation in the 3'-untranslated region of the prothrombin gene is associated with elevated plasma prothrombin levels and an increase in venous thrombosis. Blood 88:3698-703, 1995. 3) Kaila I, Jovana V, Edith C, Rose Mccormack. Prothrombin 24578X>T: 16 new cases, association with the 28877L>G polymorphism, and literature review. J Thromb Haemost. 2009;9:1585-7. As reviewed by Florin Taylor, PhD, FACMG Performed By: #### P TGEN #### [facility] CLIA [id number] [address] [place] [address] [place] US Pelvison 06-30-2024 [facility] Radiology Study observation (narrative) [facility] UA DIP, URINE (POC)on 2023 BILIRUBIN UA (POCT) Small Abnormal Negative [facility] CLARITY UA (POCT) [facility]y [facility] COLOR UA (POCT) Dark yellow [facility] GLUCOSE UA (POCT) Negative Negative mg/dL [facility] Hemoglobin Ql (U) Negative Negative [facility] Interpretation and review of laboratory results Abnormal [facility] KETONE UA (POCT) Trace Negative mg/dL [facility] LEUKOCYTES UA (POCT) Small Abnormal Negative [facility] NITRITE UA (POCT) Negative Negative [facility] PH UA (POCT) 7.0 4.5 - 8.0 [facility] Protein Ql (U) 30 mg/dL Abnormal Negative [facility] SPECIFIC GRAVITY UA (POCT) 1.025 1.005 - 1.030 [facility] UROBILINOGEN UA (POCT) 2.0 Abnormal Normal E.U./dL [facility] Location:[address], [place], [address] [facility]ARE [facility] C. DIFFICILE PCRon C. difficile toxin genes SANJEEV+probe Ql (Stl) Negative Negative for C. difficile toxin by PCR [facility] C. difficile toxin genes SANJEEV +probe Ql (Stl)on 02-25-2024 Interpretation and review of laboratory results Normal [facility] CBC panel Auto (Bld)on 02-24 Erythrocyte distribution width (RBC) [Ratio] 12.2 % 11.5 - 15.0 % [facility] Hematocrit (Bld) [Volume fraction] 42.8 % 36.0 - 46.0 % [facility] Hemoglobin (Bld) [Mass/Vol] 14.2 g/dL 11.5 - 15.5 g/dL [facility] Interpretation and review of laboratory results Abnormal [facility] MCH (RBC) [Entitic mass] 30.0 pg 26.0 - 34.0 pg [facility] MCHC (RBC) [Mass/Vol] 33.2 g/dL 30.5 - 36.0 g/dL [facility] MCV (RBC) [Entitic vol] 90.5 fL 80.0 - 100.0 fL [facility] Nucleated RBC (Bld) [#/Vol] NINF [facility] Platelet mean volume (Bld) [Entitic vol] 8.1 fL Low 9.0 - 12.7 fL [facility] Platelets (Bld) [#/Vol] 283 10*3/uL [facility] RBC (Bld) [#/Vol] 4.73 10*6/uL 3.90 - 5.2 0 m/uL [facility] WBC (Bld) [#/Vol] 7.70 10*3/uL [facility] Comprehensive metabolic 2000 panelOrdered By: Haylie Duvall on 02-25-2024 Albumin [Mass/Vol] 4.4 g/dL 3.9 - 4.9 g/dL [facility] ALP [Catalytic activity/Vol] 69 U/L 34 - 123 U/L [facility] ALT [Catalytic activity/Vol] 9 U/L 7 - 38 U/L [facility] Anion gap [Moles/Vol] 2 mmol/L Low 9 - 18 mmol/L [facility] AST [Catalytic activity/Vol] 10 U/L Low 13 - 35 U/L [facility] Bilirubin [Mass/Vol] 1.4 mg/dL High 0.2 - 1 .3 mg/dL [facility] Calcium [Mass/Vol] 9.5 mg/dL 8.5 - 10. 2 mg/dL [facility] Chloride [Moles/Vol] 105 mmol/L 97 - 10 5 mmol/L [facility] CO2 [Moles/Vol] 32 mmol/L High 22 - 30 mmol/L [facility] Creatinine [Mass/Vol] 0.68 mg/dL 0.58 - 0.96 mg/dL [facility] GFR/1.73 sq M.predicted among non-blacks MDRD (S/P/Bld) [Vol rate/Area] 122 mL/min/{1.73_m2} - PINF [facility] Comment on above: Estimated Glomerular Filtration [...] [Mass/Vol] 79 mg/dL 74 - 99 mg/dL [facility] Comment on above: The [place] Diab[employer] Association (ADA) provides guidance for [...] Standards of Medical Care in Diabetes 2016, [place] [employer]. Diabetes Care. 2016.39(Suppl 1). Interpretation and review of laboratory results Abnormal [facility] Potassium [Moles/Vol] 4.6 mmol/L 3.7 - 5.1 mmol/L [facility] Protein [Mass/Vol] 7.2 g/dL 6.3 - 8.0 g/dL [facility] Sodium [Moles/Vol] 139 mmol/L 136 - 144 mmol/L [facility] Urea nitrogen [Mass/Vol] 10 mg/dL 7 - 21 mg/dL [facility] BACTERIAL VAGINOSIS NAATon 0 12-10-2023 Lactobacillus crispatus+gasseri+yumi senii + Gardnerella vaginalis + Atopobium vaginae rRNA SANJEEV+probe Ql (Vag fld) Negative Negative for bacterial vaginosis [facility] No Panel Informationon 11-27 Radiology Study observation (narrative) [facility] US Breast - left limitedon 0 11-27-2023 IMPRESSION: NEGATIVE There is no sonographic evidence of malignancy. There is no abnormality seen in the left breast to correspond with the non-bloody discharge from the nipple in the sub-areolar depth, however, clinical correlation and clinical followup are recommended. The patient is under the care of Chetna Nettles CNP. Follow-up with ACR/NCCN guidelines. Caren jhaveri/neto:11/27/2023 14:37:08 Analysis Tester(s): RT Xiomara(R)(M), [facility] Ultrasound BI-RADS: 1 Negative Multiple national specialty organizations have released breast cancer screening guidelines for women at average risk for developing breast cancer - guidelines that are based on both evidence and opinion, yet differ on when to start and how often to screen for breast cancer. With representation from Breast Imaging, Internal Medicine, Women's Health, Family Medicine, and Medical/Surgical Oncology, the [facility] has carefully reviewed the data and [...] their providers when to stop screening mammograms. Quality Control Tech: Neto Transcribe Date/Time: Nov 27 2023 2:04P Dictated by: CAREN MENDEZ MD This examination was interpreted and the report reviewed and electronically signed by: CAREN MENDEZ MD on Nov 27 2023 2:37PM [facility] DIVISION OF RADIOLOGY * * *Final Report* * * DATE OF EXAM: Nov 27 2023 2:14PM [facility] 0593 - [facility] [employer] BREAST LTD LT / PROCEDURE REASON: Discharge from both nipples * * * * Physician Interpretation * * * * RESULT: #[id number] - [facility] US BREAST LTD LT LIMITED ULTRASOUND OF LEFT BREAST: 11/27/2023 HISTORY: 28 year old female with bilateral clear/milky nipple discharge. RESULT: Comparison is made to exam dated: 11/27/2023 ultrasound - [facility]. Color flow ultrasound of the left breast retroareolar was performed. Corbett scale images of the real-time examination were reviewed. No suspicious sonographic mass or architectural distortion is identified within this area. No sonographic abnormality is visualized. DIVISION OF RADIOLOGY Provider, [facility] Stacy [facility] - 11/27/2023 * * *Final Report* * * DATE OF EXAM: Nov 27 2023 2:14PM [facility] 0593 - [employer] BREAST LTD LT / PROCEDURE REASON: Discharge from both nipples * * * * Physician Interpretation * * * * RESULT: #[id number] - [employer] BREAST LTD LT LIMITED ULTRASOUND OF LEFT BREAST: 11/27/2023 HISTORY: 28 year old female with bilateral clear/milky nipple discharge. RESULT: Comparison is made to exam dated: 11/27/2023 ultrasound - [facility]. Color flow ultrasound of the left breast [...] The patient is under the care of Chetna Nettles CNP. Follow-up with ACR/NCCN guidelines. Caren jhaveri/neto:11/27/2023 14:37:08 Analysis Tester(s): RT Xiomara(R)(M), [facility] Ultrasound BI-RADS: 1 Negative Multiple national specialty organizations have released breast cancer screening guidelines for women at average risk for developing breast cancer - guidelines that are based on both evidence and opinion, yet differ on when to start and how often to screen for breast cancer. With representation from Breast Imaging, Internal Medicine, Women's Health, Family Medicine, and Medical/Surgical Oncology, the [facility] has carefully reviewed the data and [...] their providers when to stop screening mammograms. Quality Control Tech: Neto Transcribe Date/Time: Nov 27 2023 2:04P Dictated by: CAREN MENDEZ MD This examination was interpreted and the report reviewed and electronically signed by: CAREN MENDEZ MD on Nov 27 2023 2:37PM EST [facility] US Breast - right limitedon 11-27-2023 IMPRESSION: NEGATIVE There is no sonographic evidence of malignancy. There is no abnormality seen in the right breast to correspond with the non-bloody discharge from the nipple in the sub-areolar depth, however, clinical correlation and clinical followup are recommended. The patient is under the care of Chetna Nettles CNP. Follow-up with ACR/NCCN guidelines. Caren jhaveri/neto:11/27/2023 14:35:43 Analysis Tester(s): RT Xiomara(R)(M), [facility] Ultrasound BI-RADS: 1 Negative Multiple national specialty organizations have released breast cancer screening guidelines for women at average risk for developing breast cancer - guidelines that are based on both evidence and opinion, yet differ on when to start and how often to screen for breast cancer. With representation from Breast Imaging, Internal Medicine, Women's Health, Family Medicine, and Medical/Surgical Oncology, the [facility] has carefully reviewed the data and [...] their providers when to stop screening mammograms. Quality Control Tech: Neto Transcribe Date/Time: Nov 27 2023 1:55P Dictated by: CAREN MENDEZ MD This examination was interpreted and the report reviewed and electronically signed by: CAREN MENDEZ MD on Nov 27 2023 2:35PM [facility] DIVISION OF RADIOLOGY * * *Final Report* * * DATE OF EXAM: Nov 27 2023 2:14PM [facility] 0594 - [facility] US BREAST LTD RT / PROCEDURE REASON: Discharge from both nipples * * * * Physician Interpretation * * * * RESULT: #[id number] - [facility] BREAST LTD RT LIMITED ULTRASOUND OF RIGHT [...] is visualized. DIVISION OF RADIOLOGY Provider, Kaylene cox [facility]cd[facility] - 11/27/2023 * * *Final Report* * * DATE OF EXAM: Nov 27 2023 2:14PM [facility] 0594 - [facility] [employer] BREAST [facility] RT / PROCEDURE REASON: Discharge from both nipples * * * * Physician Interpretation * * * * RESULT: #[id number] - [facility] BREAST [facility] RT LIMITED ULTRASOUND OF RIGHT BREAST: 11/27/2023 [...] The patient is under the care of Chetna Nettles CNP. Follow-up with ACR/NCCN guidelines. Caren jhaveri/neto:11/27/2023 14:35:43 Analysis Tester(s): RT Xiomara(R)(M), [facility] Ultrasound BI-RADS: 1 Negative Multiple national specialty organizations have released breast cancer screening guidelines for women at average risk for developing breast cancer - guidelines that are based on both evidence and opinion, yet differ on when to start and how often to screen for breast cancer. With representation from Breast Imaging, Internal Medicine, Women's Health, Family Medicine, and Medical/Surgical Oncology, the [facility] has carefully reviewed the data and [...] their providers when to stop screening mammograms. Quality Control Tech: Neto Transcribe Date/Time: Nov 27 2023 1:55P Dictated by: CAREN MENDEZ MD This examination was interpreted and the report reviewed and electronically signed by: CAREN MENDEZ MD on Nov 27 2023 2:35PM [facility] US Breast - right limitedOrd ered By: [facility] Provider on 11-27-2023 [facility] Absolute lymphocyte countOrd ered By: Tanner Ryan on 11-24-2023 Lymphocytes Auto (Unsp spec) [#/Vol] 1.74 10*3/uL 0.83-4.51 [facility] Automated lymphocyte count a s percentage of total leukocytesOrdered By: Tanner Ryan on 11-24-2023 Lymphocytes/100 WBC Auto (Unsp spec) 27.4 % 19-41 [facility] Basophil percentageOrdered B y: Tanner Ryan on 11-24-2023 Basophils/100 WBC (Bld) 0.3 % 0-1 [facility] Chloride [Moles/Vol] 109 mmol/L 98-107 [facility] Eosinophils/100 WBC (Bld) 0.5 % 0-5 [facility] Glucose [Mass/Vol] 88 mg/dL 74-106 [facility] Hemoglobin (Bld) [Mass/Vol] 13.7 g/dL 12.0-15.0 [facility] Monocytes/100 WBC (Bld) 5.2 % 0-10 [facility] Neutrophils (Bld) [#/Vol] 4.2 10*3/uL 2.0-7.7 [facility] Neutrophils/100 WBC (Bld) 66.3 % 47-70 [facility] Potassium [Moles/Vol] 4.5 mmol/L 3.5-5.1 [facility] Comment on above: Moderate Hemolysis, Result may be falsely increased. Sodium [Moles/Vol] 140 mmol/L 136-145 [facility] WBC (Bld) [#/Vol] 6.4 10*3/uL 4.4-11.0 [facility] Basophil percentage >100 SEEN /hpf 0-5 [facility] Bilirubin Test strip Ql (U)O rdered By: ED PROVIDER on 11-24-2023 Bilirubin Ql (U) Negative Negative [facility] Determination of erythrocyte mean corpuscular volume (MCV)Ordered By: Tanner Ryan on 11-24-2023 MCV (RBC) [Entitic vol] 89.7 fL 81-99 [facility] Erythrocyte distribution wid th ratioOrdered By: Tanner Ryan on 11-24-2023 Erythrocyte distribution width (RBC) [Ratio] 13.2 % 11.6-14.6 [facility] Erythrocyte distribution wid th standard deviationOrdered By: Tanner Ryan on 11-24-2023 Erythrocyte distribution width (RBC) [Entitic vol] 43.0 fL 35.1-43.9 [facility] Hematocrit Auto (Bld) [Volum e fraction]Ordered By: Tanner Ryan on 11-24-2023 Hematocrit (Bld) [Volume fraction] 41.9 % 37-47 [facility] Immature granulocytes/100 WB C Auto (Bld)Ordered By: Tanner Ryan on 11-24-2023 Immature granulocytes/100 WBC (Bld) 0.300 % 0.0-0.9 [facility] Comment on above: IG% - Immature Granu locytes (promyelocytes, myelocytes and metamyelocytes) > 1% indicates that a LEFT SHIFT is Present. Ketones Test strip Ql (U)Ord ered By: ED PROVIDER on 11-24-2023 Ketones Ql (U) Negative Negative [facility] Laboratory - Chemistry and C hemistry - challengeOrdered By: Tanner Ryan on 11-24-2023 CO2 [Moles/Vol] 26.0 mmol/L 21.0-32.0 [facility] Urea nitrogen/Creatinine [Mass ratio] 8.3 mg/mg 10-20 [facility] Laboratory - Hematology and Cell countsOrdered By: Tanner Ryan on 11-24-2023 MCH (RBC) [Entitic mass] 29.3 pg 27.0-32.0 [facility] MCHC (RBC) [Mass/Vol] 32.7 g/dL 32-36 [facility] Nucleated RBC/100 WBC (Bld) [Ratio] 0 % 0-5 [facility] Platelet mean volume (Bld) [Entitic vol] 8.1 fL 6.2-12.0 [facility] Platelets (Bld) [#/Vol] 277 10*3/uL 150-450 [facility] Mucus LM Ql (Urine sed)Order ed By: Tanner Ryan on 11-24-2023 Mucus Ql (Urine sed) 0 SEEN /hpf [facility] Nitrite Test strip Ql (U)Ord ered By: ED PROVIDER on 11-24-2023 Nitrite Ql (U) Positive Negative [facility] No Panel InformationOrdered By: Tanner Ryan on 11-24-2023 Estimated Creatinine Clearance Calc 122.47 ml/min [facility] Estimated GFR (MDRD) Amer 122 mL/min >60 [facility] Comment on above: GFR Calc Estimated GFR (MDRD) Non-Af Amer 101 mL/min >60 [facility] Comment on above: Non- GFR Calc Urine RBC 5-10 SEEN /hpf 0-5 [facility] Protein Test strip Ql (U)Ord ered By: ED PROVIDER on 11-24-2023 Protein Ql (U) 30 mg/dl Negative [facility] RBC Auto (Bld) [#/Vol]Ordere d By: Tanner Ryan on 11-24-2023 RBC (Bld) [#/Vol] 4.67 10*6/uL 4.2-5.4 [facility] Serum or plasma calcium jay urement (mass/volume)Ordered By: Tanner Ryan on 11-24-2023 Calcium [Mass/Vol] 9.3 mg/dL 8.5-10.1 [facility] Serum or plasma choriogonado tropin detectionOrdered By: Tanner Ryan on 11-24-2023 HCG ( test) Ql Negative [facility] Serum or plasma creatinine m easurement (mass/volume)Ordered By: Tanner Ryan on 11-24-2023 Creatinine [Mass/Vol] 0.73 mg/dL 0.55-1.02 [facility] Comment on above: The validity of the calculated GFR & GFRAA in patients over 70 years has not been determined. Clinical correlation is essential. Serum or plasma urea nitroge n measurement (mass/volume)Ordered By: Tanner Ryan on 11-24-2023 Urea nitrogen [Mass/Vol] 6 mg/dL 7-18 [facility] Squamous epithelial cells de tection in urine sediment by light microscopyOrdered By: Tanner Ryan on 11-24-2023 Epithelial cells.squamous LM Ql (Urine sed) 0-5 SEEN /hpf 5-10 [facility] Thin prep Papanicolaou smear with manual screeningOrdered By: Tanner Ryan on 11-24-2023 Thin prep Papanicolaou smear with manual screening 5 5-15 [facility] Urine blood detectionOrdered By: ED PROVIDER on 11-24-2023 RBC Ql (U) 150 /ul Negative [facility] Urine clarityOrdered By: ED PROVIDER on 11-24-2023 Clarity (U) Cloudy Clear [facility] Urine color determinationOrd ered By: ED PROVIDER on 11-24-2023 Color (U) Yellow Yellow [facility] Urine glucose detectionOrder ed By: ED PROVIDER on 11-24-2023 Glucose Ql (U) Normal mg/dl Normal [facility] Urine leukocyte esterase det ection by dipstickOrdered By: ED PROVIDER on 11-24-2023 Leukocyte esterase Test strip Ql (U) 500 /ul Negative [facility] Urine pHOrdered By: ED PROVI RICKI on 11-24-2023 pH (U) 6.5 [pH] 5.0 - 8.0 [facility] Urine sediment bacteria coun t by microscopy (number/high power field)Ordered By: Tanner Ryan on 11-24-2023 Bacteria LM.HPF (Urine sed) [#/Area] 2 /[HPF] None Seen [facility] Urine specific gravity measu rementOrdered By: ED PROVIDER on 11-24-2023 Specific gravity (U) [Rel density] 1.015 1.002-1.030 [facility] Urine urobilinogen measureme ntOrdered By: ED PROVIDER on 11-24-2023 Urobilinogen Ql (U) Normal mg/dl Normal [facility] UA DIP, URINE (POC)on 2023 BILIRUBIN UA (POCT) Negative Negative [facility] CLARITY UA (POCT) Clear [facility] COLOR UA (POCT) Yellow [facility] GLUCOSE UA (POCT) Negative Negative mg/dL [facility] Hemoglobin Ql (U) Negative Negative [facility] KETONE UA (POCT) Negative Negative mg/dL [facility] LEUKOCYTES UA (POCT) Trace Abnormal Negative [facility] NITRITE UA (POCT) Negative Negative [facility] PH UA (POCT) 6.0 4.5 - 8.0 [facility] Protein Ql (U) Negative Negative mg/dL [facility] SPECIFIC GRAVITY UA (POCT) 1.010 1.005 - 1.030 [facility] UROBILINOGEN UA (POCT) 0.2 E.U./dL Normal E.U./dL [facility] Prolactin SerPl-mCncon 10-28 Prolactin [Mass/Vol] 8.5 ng/mL Normal 4.5-26.8 [facility] Comment on above: Order Comment: Speci men Type: BLOOD SPECIMEN Ordering Facility: [facility] Address: [address] [place] [address] Result Comment: Prol actin test is performed using the [employer] Electrochemiluminescence Immunoassay method. Results obtained with different methods or kits cannot be used interchangeably. Performed By: #### P TGEN #### CLARITY ILLUMINA LIMMichel CLIA [id number] [address] [place] [address] [place] EMERGENCY REPORTon 4 EMERGENCY REPORT [facility] EMERGENCY ROOM REPORT NAME ACCOUNT SEX AGE ADMIT DISCHARGE PT MED. RECORD# NUMBER DATE DATE TYPE LEELEE ZAMORA [id number] F 28 10/20/23 10/20/23 3 N [id number] ROOM: ER DATE OF : 1995 DICTATING PHYSICIAN: Enoch Medina CHIEF COMPLAINT: Abdominal pain with nausea and diarrhea. HISTORY OF PRESENT ILLNESS: The patient had a laparoscopic cholecystectomy done at [facility] last week. She states over the [...] other Page 1 of 2 LEELEE ZAMORA [facility] Report LEELEE ZAMORA : 1995 than a CO2 of 19.7. [...] We will send her home with some [place] for pain, Lomotil for diarrhea, Zofran for nausea, and Protonix. She is to see her surgeon within the next 1 to 2 days if no better, returning if symptoms worsen. Dictated By: Enoch Medina MD 10/20/23 15:05 JOB #: [id number] Transcribed By: am 10/20/23 15:28 Electronically signed by: LAURA Medina M.D. 10/27/23 07:05 Page 2 of 2 LEELEE ZAMORA Emergency Room Report Normal [facility] C-REACTIVE PROTEINon 024 CRP 0.88 mg/dl Normal 0.00 - 0.90 [facility] Comment on above: Performed By: #### 2 [id number] #### [address] [address] CBC + DIFFon 10-20-2023 Baso # 0.00 x10EE3/UL Normal 0.00 - 0.10 [facility] Comment on above: Performed By: #### 2 20438 #### [address] [address] Basophils/100 WBC (Bld) 0.2 % Normal 0.0 - 2.0 [facility] Comment on above: Performed By: #### 2 53265 #### [place] [address] CBC + DIFF Normal [facility] Comment on above: Result Comment: CBC- COMPLETE BLOOD COUNT Performed By: #### 2 50467 #### [place] [address] EO # 0.10 x10EE3/UL Normal 0.00 - 0.50 [facility] Comment on above: Performed By: #### 2 95356 #### [place] [address] Eosinophils/100 WBC (Bld) 0.9 % Normal 0.0 - 7.0 [facility] Comment on above: Performed By: #### 2 72936 #### [place] [address] Erythrocyte distribution width (RBC) [Ratio] 14.9 % Normal 12.0 - 15.6 [facility] Comment on above: Performed By: #### 2 24656 #### [place] [address] Hematocrit (Bld) [Volume fraction] 45.5 % Normal 34.0 - 46.0 [facility] Comment on above: Performed By: #### 2 13895 #### [facility],[address] [place] [address] Hemoglobin (Bld) [Mass/Vol] 14.6 g/dL Normal 12.0 - 16.0 [facility] Comment on above: Performed By: #### 2 15288 #### [place] [address] Lymph # 0.50 x10EE3/UL Low 0.80 - 2.80 [facility] Comment on above: Performed By: #### 2 11327 #### [address],[place] [address] Lymphocytes/100 WBC (Bld) 5.6 % Low 20.0 - 45.0 [facility] Comment on above: Performed By: #### 2 01598 #### [facility],[address] [place] [address] MANUAL DIFF N/A Normal [facility] Comment on above: Performed By: #### 2 52461 #### [facility],[address] [place] [address] MCH (RBC) [Entitic mass] 30 pg Normal 27 - 33 [facility] Comment on above: Performed By: #### 2 58343 #### [place] [address] MCHC 32 X10 3 Normal 32 - 36 [facility] Comment on above: Performed By: #### 2 11489 #### [place] [address] MCV (RBC) [Entitic vol] 92 fL Normal 80 - 99 [facility] Comment on above: Performed By: #### 2 24406 #### [place] [address] [place] # 0.50 x10EE3/UL Normal 0.20 - 1.00 [facility] Comment on above: Performed By: #### 2 62658 #### [place] [address] MONOS % 6.2 % Normal 0.0 - 10.0 [facility] Comment on above: Performed By: #### 2 37125 #### [place] [address] Morphology Alexandru (Bld) [Interp] N/A Normal [facility] Comment on above: Result Comment: {CD] Performed By: #### 2 92531 #### [place] [address] Neut # 7.10 x10EE3/UL Normal 1.50 - 7.10 [facility] Comment on above: Performed By: #### 2 02688 #### [facility],[address] [place] [address] Neutrophils/100 WBC (Bld) 87.1 % High 46.0 - 76.0 [facility] Comment on above: Performed By: #### 2 65093 #### [facility],[address] [place] [address] PLATELET 236 x10EE3/UL Normal 150 - 450 [facility] Comment on above: Performed By: #### 2 56525 #### [facility],[address] [place], [place] [id number] Platelet mean volume (Bld) [Entitic vol] 6.2 fL Low 6.6 - 10.5 [facility] Comment on above: Result Comment: AUTO MATED DIFFERENTIAL Performed By: #### 2 59349 #### [facility],[address] [place] [address] RBC 4.94 x 10EE6/UL Normal 4.10 - 5.30 [facility] Comment on above: Performed By: #### 2 74022 #### [facility],[address] [place] [address] WBC 8.2 x 10EE3/UL Normal 4.5 - 10.8 [facility] Comment on above: Performed By: #### 2 20627 #### [facility],[address] [place] [address] CMP with eGFRon 10-20-2023 AGE 28 years Normal [facility] Comment on above: Performed By: #### 2 57890 #### [facility],[address] [place] [address] Albumin [Mass/Vol] 3.2 g/dL Low 3.4 - 5.0 [facility] Comment on above: Performed By: #### 2 12514 #### [facility],[address] [place] [address] Albumin/Globulin [Mass ratio] 0.8 {ratio} Low 0.9 - 1.6 [facility] Comment on above: Performed By: #### 2 92550 #### [facility],[address] [place] [address] ALK PHOS 68 U/L Normal 46 - 116 [facility] Comment on above: Performed By: #### 2 09343 #### [facility],[address] [place] [address] ALT [Catalytic activity/Vol] 30 U/L Normal 14 - 59 [facility] Comment on above: Performed By: #### 2 83985 #### [facility],[address] [place] [address] Anion gap [Moles/Vol] 15 mmol/L Normal 10 - 20 [facility] Comment on above: Performed By: #### 2 08505 #### [facility],[address] [place] [address] AST [Catalytic activity/Vol] 12 U/L Low 13 - 39 [facility] Comment on above: Performed By: #### 2 78358 #### [facility],[address] [place] [address] B/C RATIO 32 ratio High 0 - 30 [facility] Comment on above: Performed By: #### 2 90961 #### [facility],[address] [place] [address] Bilirubin [Mass/Vol] 2.3 mg/dL High 0.2 - 1.0 [facility] Comment on above: Performed By: #### 2 49573 #### [facility],[address] [place] [address] Calcium [Mass/Vol] 8.5 mg/dL Normal 8.5 - 10.1 [facility] Comment on above: Performed By: #### 2 51450 #### [facility],[address] [place] [address] Chloride [Moles/Vol] 105 mmol/L Normal 98 - 107 [facility] Comment on above: Performed By: #### 2 18232 #### [facility],[address] [place] [address] CMP with eGFR Normal [facility] Comment on above: Result Comment: COMP REHENSIVE METABOLIC PANEL Performed By: #### 2 15539 #### [facility],[address] [place] [place] [address] CO2 [Moles/Vol] 19.7 mmol/L Low 21.0 - 32.0 [facility] Comment on above: Performed By: #### 2 [id number] #### [facility],[address] [place] [address]248 Creatinine [Mass/Vol] 0.53 mg/dL Low 0.55 - 1.02 [facility] Comment on above: Performed By: #### 2 61239 #### [facility],[address] [place] [address]08 GFR/1.73 sq M.predicted among non-blacks MDRD (S/P/Bld) [Vol rate/Area] mL/min/{1.73_m2} Normal 60 - 999 [facility] Comment on above: Performed By: #### 2 [id number] #### [facility],[address] [place] [address] 97287 Result Comment: ACCO RDING TO THE NATIONAL KIDNEY DISEASE EDUCATION PROGRAM(NKDE), A NORMAL eGFR IS A VALUE GREATER THAN OR EQUAL TO 60 ML/MIN/1.73 SQ METERS. CHRONIC KIDNEY DISEASE: <60mL/MIN/1.73 SQ METERS KIDNEY FAILURE: <15mL/MIN/1.73 SQ METERS THIS TEST SHOULD ONLY BE USED FOR PATIENTS 18 YEARS OF AGE AND OLDER. Globulin (S) [Mass/Vol] 4.0 g/dL High 1.5 - 3.8 [facility] Comment on above: Performed By: #### 2 13023 #### [facility],[address] [place] [address]007 Glucose [Mass/Vol] 86 mg/dL Normal 74 - 106 [facility] Comment on above: Performed By: #### 2 16970 #### [facility],[address] [place] [address] 62234 Potassium [Moles/Vol] 3.8 mmol/L Normal 3.5 - 5.1 [facility] Comment on above: Performed By: #### 2 72674 #### [facility],[address] [place] [address] 92668 Protein [Mass/Vol] 7.2 g/dL Normal 6.4 - 8.2 [facility] Comment on above: Performed By: #### 2 75303 #### [facility],[address] [place] [address]30 Sodium [Moles/Vol] 136 mmol/L Normal 136 - 145 [facility] Comment on above: Performed By: #### 2 21480 #### [facility],[address] [place] [address] 01692 Urea nitrogen [Mass/Vol] 17 mg/dL Normal 7 - 18 [facility] Comment on above: Performed By: #### 2 73359 #### [facility],[address] [place] [address] ABDOMEN/PELVIS [facility] 2023 CT ABDOMEN/PELVIS [place] [address] Patient: LEELEE ZAMORA Phone#: : 1995 Age: 28 Gender: F Pt. Type: ER Account: [id number] Location: [facility] Ordering: ENOCH MEDINA Exam Date: 10/20/2023/12:22 Family Phys: NO DOCTOR Charge Code: 334554 Physician: Gonzales Order #: [id number] Dose#: 23.0mGy PROCEDURE: CT ABDOMEN/PELVIS WITH CONTRAST COMPARISON: [facility], [facility], ABDOMEN/PELVIS W CON, 09/10/2018, 13:21. INDICATIONS: [...] 28 Gender: F Pt. Type: ER Account: [id number] Location: 2 Ordering: ENOCH MEDINA Exam Date: 10/20/2023/12:22 Family Phys: NO DOCTOR Charge Code: 891462 Physician: Gonzales Order #: [id number] Dose#: 23.0mGy BONES: Pars defects are present [...] Welch MD on 10/20/2023 at 12:54 Normal [facility] LIPASEon 10-20-2023 Lipase [Catalytic activity/Vol] 26.0 U/L Normal 15.0 - 78.0 [facility] Comment on above: Result Comment: *PLE ASE NOTE THAT RANGES FOR LIPASE HAVE CHANGED OF 10/09/23 DUE TO AN ASSAY UPDATE BY THE FINAL ASSEMBLER BOAT.THE NEW ASSAY RANGE IS 6-250 U/L, WITH A REFERENCE RANGE OF 16-77 U/L. Performed By: #### 2 43102 #### [facility],[address] [place] [address] ANES POSTPROC EVALon 024 ANES POSTPROC EVAL HNO ID: [id number] Author: Marietta Palencia MD Service: Anesthesiology Author Type: Anesthesiologist Type: Anesthesia Postprocedure Evaluation Filed: 10/14/2023 12:32 PM Note Text: POST ANESTHESIA EVALUATION NOTE : 1995 Procedure Summary Date: 10/14/23 Room / Location: [facility] OR / [facility] OR Anesthesia Start: 944 Anesthesia Stop: 1114 Procedure: LAPAROSCOPIC CHOLECYSTECTOMY WITH GRAMS (Abdomen) Diagnosis: Calculus of gallbladder without cholecystitis without obstruction (Calculus of gallbladder without cholecystitis without obstruction [K80.20]) Surgeons: Susan Macdonald MD Responsible Provider: Marietta aPlencia MD Anesthesia Type: general ASA Status: 3 [...] October 14, 2023 TIME: 12:31 PM CSN: [id number] [facility] ANES PRE-OPon 10-14-2023 ANES PRE-OP HNO ID: [id number] Author: Marietta Palencia MD Service: Anesthesiology Author Type: Anesthesiologist Type: Anesthesia Preprocedure Evaluation Filed: 10/14/2023 9:31 AM Note Text: ANESTHESIOLOGY DAY OF SURGERY NOTE : 1995 Procedure Information Date/Time: 10/14/23919 Procedure: LAPAROSCOPIC CHOLECYSTECTOMY WITH GRAMS (Abdomen) - LAPAROSCOPIC CHOLECYSTECTOMY WITH GRAMS [2390] Location: [place] [address] / [place] Surgeons: Susan Macdonald MD Estimated body [...] 18 10/14/23900 Temp 36.3 ?C (97.3 ?F) 10/14/23 09 SpO2 100 % 10/14/23900 Facility-Administered Medications as [...] October 14, 2023 TIME: 9:30 AM CSN: [id number] [facility] BRIEF OP NOTon 10-14-2023 BRIEF OP NOT HNO ID: [id number] Author: Susan Macdonald MD Service: General Surgery Author Type: Physician Type: Brief Op Note Filed: 10/14/2023 11:15 AM Note Text: BRIEF OPERATIVE / PROCEDURE NOTE LOG ID: [id number] SURGERY/PROCEDURE DATE: 10/14/2023 INCISION/PROCEDURE START TIME: 10:04 AM INCISION CLOSE/PROCEDURE END TIME: 11:01 AM SURGEON(S)/PROCEDURALIST( S) AND FACE PAINTER(S): Surgeon(s) and Role: * Susan Macdonald MD - Primary Physician Mixed Crop Farmer: Makayla Zarate PA-C SURGERY/PROCEDURE(S): Laparoscopic cholecystectomy with [...] DATE: October 14, 2023 TIME: 11:13 AM [facility] HISTORY PHYSICALon HISTORY PHYSICAL HNO ID: [id number] Author: Susan Macdonald MD Service: General Surgery [...] DATE: October 14, 2023 TIME: 9:35 AM [facility] NURSING PROGon 10-14-2023 NURSING PROG HNO ID: [id number] Author: Berenice Almanza RN Service: Nursing Author Type: Registered Nurse Type: Nursing Progress Note Filed: 10/14/2023 12:22 PM Note Text: Other: 1213-Pt reports swollen lip. Dr. Yung made aware. Dr. Yung to come to bedside to evaluate. 1217- Dr. Yung at bedside. Per Dr. Yung lip swelling due to oral airway. Normal [facility] OPERATIVE NOon 10-14-2023 OPERATIVE NO HNO ID: [id number] Author: SUSAN MACDONALD MD Service: General Surgery Author Type: Physician Type: Operative Report Filed: 10/16/2023 08:22 Note Text: [facility] - Operative Report LEELEE ZAMORA : 1995 AGE: 28. SEX: F PATIENT TYPE: [place] [facility] [place] [facility] ATTENDING PHYSICIAN: Susan Macdonald M.D. CSN NUMBER: [id number] DATE OF SURGERY/PROCEDURE: 10/14/2023 INCISION/PROCEDURE START TIME: 10:04 a.m. INCISION CLOSE/PROCEDURE END TIME: 11:01 a.m. PREOPERATIVE DIAGNOSIS: Symptomatic cholelithiasis. POSTOPERATIVE DIAGNOSIS: Symptomatic cholelithiasis. SURGEON: Susan Macdonald M.D. FACE PAINTER: ODESSA Domingo. No resident was available to assist with the surgery, so a PA was utilized as a family services assistant. Her role included gallbladder retraction and [...] 0 PDS with the aid of the airline transport pilot guide. The remaining trocars were opened up. Insufflation was allowed to escape. Local anesthetic was injected into each of the incisions. The incisions were then closed with 5-0 Vicryl. Skin glue was applied as dressing. She w (more content not included)... Normal [facility] SURGICAL PATHOLOGYon 024 CASE REPORT Normal [facility] Comment on above: Order Comment: Speci men Type: BLOOD SPECIMEN Ordering Facility: [facility] Address: [address] [place] [address] Result Comment: Surg [facility] Pathology Report Case: [id number] Authorizing Provider: Susan Macdonald MD Collected: 10/14/2023 10:10 AM Ordering Location: [facility] Surgery Received: 10/14/2023 11:54 AM Pathologist: Karishma Schmidt MD Specimen: GALLBLADDER Performed By: #### P TGEN #### [facility] CLIA [id number] [address] [place], [place] [address] [address] [place] CLINICAL HISTORY Normal [facility] Comment on above: Order Comment: Speci men Type: BLOOD SPECIMEN Ordering Facility: [facility] Address: [address] [place] [address] Result Comment: Pre- op diagnosis: Calculus of gallbladder without cholecystitis without obstruction [K80.20] Performed By: #### P TGEN #### [facility] CLIA [id number] [address] [place] [address] FINAL DIAGNOSIS Normal [facility] Comment on above: Order Comment: Speci men Type: BLOOD SPECIMEN Ordering Facility: [facility] Address: [address] [place] [address] Result Comment: Gall bladder, cholecystectomy: -Chronic cholecystitis with cholelithiasis and cholesterolosis Performed By: #### P TGEN #### [facility] CLIA [id number] [address] [place] [address] OF [facility] FINAL PERFORMING LAB Normal [facility] Comment on above: Order Comment: Speci men Type: BLOOD SPECIMEN Ordering Facility: [facility] Address: [address] [place] [address] Result Comment: Diag nostic interpretation performed at [facility], [address] [place] [address] CLIA# [id number] Timber Selector: Ariel Macias M.D. Performed By: #### P TGEN #### [facility] CLIA [id number] [address] [place] [address] OF [place] GROSS DESCRIPTION A. GALLBLADDER Normal [facility] Comment on above: Order Comment: Speci [facility] Type: BLOOD SPECIMEN Ordering Facility: [facility] Address: [address] [place] [address] Result Comment: Rece ived in formalin labeled [...] No polyps or discrete lesions are identified. Director Semiconductor sections to include cystic duct margin are submitted in one cassette. Gross examination performed at [facility], [address] [place] [address] CLIA# [id number] REPLACED BY [facility] 10/14/23 Performed By: #### P TGEN #### [facility] CLIA [id number] [address] [place] [address] [place] [address] [place] HISTORY PHYSICALon HISTORY PHYSICAL HNO ID: [id number] Author: Vianney Burns PA-C Service: ? Author Type: Physician Mixed Crop Farmer Type: HANDP Filed: 10/01/2023 5:09 PM Note [...] manage symptoms. Procedure scheduled on 10/14/2023 at [facility]. REVIEW OF SYSTEMS: General: No weight [...] CAD, chest pain, CHF, hyperlipidemia, hypertension, recent PR, murmur/valvular heart disease, open heart surgery and valve surgery. GI: Positive for: abdominal pain (01/19) and GERD Negative for: dysphagia, liver disease, nausea and vomiting. : Negative for: on dialysis, dysuria, hematuria and renal failure. 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 Hematology: [facility] - hereditary hemochromatosis Negative for: anemia, bruises/bleeds easily, factor V Leiden, hemophilia, thrombocytopenia, von Willebrand disease and chronic anti-coagulation/platelet meds. Oncology: No history of CA metastasis, [...] History Social (more content not included)... Normal [facility] MR Liver WO and W contrast [...] any questions regarding this interpretation, please call [phone]. If you are unable to reach us at the number above, please feel free to contact [facility] at [phone]. DIVISION OF RADIOLOGY * * *Final Report* * * DATE OF EXAM: Sep 14 2023 4:43PM [facility] 0727 - MRI LIVER WO/W IVCON / [...] bowel or wall thickening along imaged segments. Mesentery/peritoneum/retr operitoneum: No ascites or mass. Lymph nodes: No abdominal lymphadenopathy. Vasculature: No abdominal aortic aneurysm. Bones/Soft Tissues: Unremarkable. Lower chest: No additional findings. DIVISION OF RADIOLOGY Provider, [facility] - 09/15/2023 * * *Final Report* * * DATE OF EXAM: Sep 14 2023 4:43PM [facility] 0727 - MRI LIVER WO/W IVCON / [...] bowel or wall thickening along imaged segments. Mesentery/peritoneum/retr operitoneum: No ascites or mass. Lymph nodes: No [...] any questions regarding this interpretation, please call [phone]. If you are unable to reach us at the number above, please feel free to contact [facility] eRadiology at [phone]. 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 MQ: [facility]_2021 COMPARISON: CT abdomen pelvis 08/05/2023. RESULT: [...] Normal sonographic appearance of the female pelvis. Quality Control Tech: PK Transcribe Date/Time: Aug 23 2023 2:05P Dictated by : ALICIA MADRIGAL MD This examination was interpreted and the report reviewed and electronically signed by: ALICIA MADRIGAL MD on Aug 23 2023 2:07PM EST [id number] Normal [facility] US FEMALE PELVIS TRANSVAGon 08-21-2023 US [...] and stored in a permanent archive. MQ: [facility]_2021 COMPARISON: CT abdomen pelvis 08/05/2023. RESULT: Uterus: [...] Normal sonographic appearance of the female pelvis. Quality Control Tech: PSCB Transcribe Date/Time: Aug 23 2023 2:05P Dictated by : ALICIA MADRIGAL MD This examination was interpreted and the report reviewed and electronically signed by: ALICIA MADRIAGL MD on Aug 23 2023 2:07PM EST [id number] Normal [facility] CT ABD/PEL W IVCONon 023 Radiology Result ACTIONABLE [facility] Absolute lymphocyte countOrd ered By: Delgado Marie on 07-22-2023 Lymphocytes Auto (Unsp spec) [#/Vol] 2.24 10*3/uL 0.83-4.51 [facility] Basophil percentageOrdered B y: Delgado Marie on 07-22-2023 Basophils/100 WBC (Bld) 0.4 % 0-1 [facility] Chloride [Moles/Vol] 107 mmol/L 98-107 [facility] Eosinophils/100 WBC (Bld) 0.3 % 0-5 [facility] Glucose [Mass/Vol] 79 mg/dL 74-106 [facility] Neutrophils (Bld) [#/Vol] 6.9 10*3/uL 2.0-7.7 [facility] Neutrophils/100 WBC (Bld) 69.8 % 47-70 [facility] Potassium [Moles/Vol] 4.5 mmol/L 3.5-5.1 [facility] Comment on above: Moderate Hemolysis, Result may be falsely increased. Sodium [Moles/Vol] 138 mmol/L 136-145 [facility] WBC (Bld) [#/Vol] 9.9 10*3/uL 4.4-11.0 [facility] Basophil percentage 0 SEEN /hpf 0-5 [facility] Beta hCG serum qualOrdered B y: Delgado Marie on 07-22-2023 Beta HCG ( test) Ql Negative [facility] Bilirubin Test strip Ql (U)O rdered By: ED PROVIDER on 07-22-2023 Bilirubin Ql (U) Negative Negative [facility] Blood erythrocytes count (nu mber/volume)Ordered By: Delgado Marie on 07-22-2023 RBC (Bld) [#/Vol] 4.70 10*6/uL 4.2-5.4 [facility] Blood hemoglobin measurement (mass/volume)Ordered By: Delgado Marie on 07-22-2023 Hemoglobin (Bld) [Mass/Vol] 13.4 g/dL 12.0-15.0 [facility] Blood lymphocytes/100 leukoc ytesOrdered By: Delgado Marie on 07-22-2023 Lymphocytes/100 WBC (Bld) 22.7 % 19-41 [facility] Blood monocytes/100 leukocyt esOrdered By: Delgado Marie on 07-22-2023 Monocytes/100 WBC (Bld) 6.4 % 0-10 [facility] Blood platelet mean volumeOr dered By: Delgado Marie on 07-22-2023 Platelet mean volume (Bld) [Entitic vol] 8.3 fL 6.2-12.0 [facility] Determination of erythrocyte mean corpuscular volume (MCV)Ordered By: Delgado Marie on 07-22-2023 MCV (RBC) [Entitic vol] 88.3 fL 81-99 [facility] Hematocrit Auto (Bld) [Volum e fraction]Ordered By: Delgado Marie on 07-22-2023 Hematocrit (Bld) [Volume fraction] 41.5 % 37-47 [facility] Ketones Test strip Ql (U)Ord ered By: ED PROVIDER on 07-22-2023 Ketones Ql (U) Negative Negative [facility] Laboratory - Chemistry and C hemistry - challengeOrdered By: Delgado Marie on 07-22-2023 CO2 [Moles/Vol] 28.0 mmol/L 21.0-32.0 [facility] Urea nitrogen/Creatinine [Mass ratio] 16.4 mg/mg 10-20 [facility] Laboratory - Hematology and Cell countsOrdered By: Delgado Marie on 07-22-2023 Erythrocyte distribution width (RBC) [Entitic vol] 41.3 fL 35.1-43.9 [facility] Erythrocyte distribution width (RBC) [Ratio] 12.7 % 11.6-14.6 [facility] Immature granulocytes/100 WBC (Bld) 0.400 % 0.0-0.9 [facility] Comment on above: IG% - Immature Granu locytes (promyelocytes, myelocytes and metamyelocytes) > 1% indicates that a LEFT SHIFT is Present. MCH (RBC) [Entitic mass] 28.5 pg 27.0-32.0 [facility] Nucleated RBC/100 WBC (Bld) [Ratio] 0 % 0-5 [facility] MCHC Auto (RBC) [Mass/Vol]Or dered By: Delgado Marie on 07-22-2023 MCHC (RBC) [Mass/Vol] 32.3 g/dL 32-36 [facility] Mucus LM Ql (Urine sed)Order ed By: Delgado Marie on 07-22-2023 Mucus Ql (Urine sed) 0 SEEN /hpf [facility] Nitrite Test strip Ql (U)Ord ered By: ED PROVIDER on 07-22-2023 Nitrite Ql (U) Negative Negative [facility] No Panel InformationOrdered By: Delgado Marie on 07-22-2023 Estimated Creatinine Clearance Calc 108.60 ml/min [facility] Estimated GFR (MDRD) Amer 151 mL/min >60 [facility] Comment on above: GFR Calc Estimated GFR (MDRD) Non-Af Amer 124 mL/min >60 [facility] Comment on above: Non- GFR Calc Platelets bldOrdered By: Chevy Marie on 07-22-2023 Platelets (Bld) [#/Vol] 262 10*3/uL 150-450 [facility] Protein Test strip Ql (U)Ord ered By: ED PROVIDER on 07-22-2023 Protein Ql (U) 15 mg/dl Negative [facility] Serum or plasma calcium jay urement (mass/volume)Ordered By: Delgado Marie on 07-22-2023 Calcium [Mass/Vol] 8.7 mg/dL 8.5-10.1 [facility] Serum or plasma creatinine m easurement (mass/volume)Ordered By: Delgado Marie on 07-22-2023 Creatinine [Mass/Vol] 0.61 mg/dL 0.55-1.02 [facility] Comment on above: The validity of the calculated GFR & GFRAA in patients over 70 years has not been determined. Clinical correlation is essential. Serum or plasma urea nitroge n measurement (mass/volume)Ordered By: Delgado Marie on 07-22-2023 Urea nitrogen [Mass/Vol] 10 mg/dL 7-18 [facility] Squamous epithelial cells de tection in urine sediment by light microscopyOrdered By: Delgado Marie on 07-22-2023 Epithelial cells.squamous LM Ql (Urine sed) 0-5 SEEN /hpf 5-10 [facility] Thin prep Papanicolaou smear with manual screeningOrdered By: Delgado Marie on 07-22-2023 Thin prep Papanicolaou smear with manual screening 3 5-15 [facility] Urine blood detectionOrdered By: ED PROVIDER on 07-22-2023 RBC Ql (U) Negative Negative [facility] Urine blood detectionOrdered By: Delgado Marie on 07-22-2023 RBC Ql (U) 0 SEEN /hpf 0-5 [facility] Urine clarityOrdered By: ED PROVIDER on 07-22-2023 Clarity (U) Clear Clear [facility] Urine color determinationOrd ered By: ED PROVIDER on 07-22-2023 Color (U) Yellow Yellow [facility] Urine glucose detectionOrder ed By: ED PROVIDER on 07-22-2023 Glucose Ql (U) Normal mg/dl Normal [facility] Urine leukocyte esterase det ection by dipstickOrdered By: ED PROVIDER on 07-22-2023 Leukocyte esterase Test strip Ql (U) 25 /ul Negative [facility] Urine pHOrdered By: ED PROVI RICKI on 07-22-2023 pH (U) 7.0 [pH] 5.0 - 8.0 [facility] Urine sediment bacteria coun t by microscopy (number/high power field)Ordered By: Delgado Marie on 07-22-2023 Bacteria LM.HPF (Urine sed) [#/Area] 0 /[HPF] None Seen [facility] Urine specific gravity measu rementOrdered By: ED PROVIDER on 07-22-2023 Specific gravity (U) [Rel density] 1.010 1.002-1.030 [facility] Urobilinogen Auto test strip Ql (U)Ordered By: ED PROVIDER on 07-22-2023 Urobilinogen Ql (U) Normal mg/dl Normal [facility] HbA1c (Bld)on 06-23-2023 Average glucose Estimated from glycated hemoglobin (Bld) [Mass/Vol] 103 mg/dL [facility] HbA1c (Bld) [Mass fraction] 5.2 % 4.3 - 5.6 % [facility] UA DIP, URINE (POC)on 2022 BILIRUBIN UA (POCT) Negative Negative [facility] CLARITY UA (POCT) Clear [facility] COLOR UA (POCT) Yellow [facility] GLUCOSE UA (POCT) Negative Negative mg/dL [facility] Hem[facility] Ql (U) [facility] KETONE UA (POCT) Negative Negative mg/dL [facility] LEUKOCYTES UA (POCT) Negative Negative [facility] NITRITE UA (POCT) Negative Negative [facility] PH UA (POCT) 6.0 4.5 - 8.0 [facility] Protein Ql (U) Negative Negative mg/dL [facility] SPECIFIC GRAVITY UA (POCT) >=1.030 1.005 - 1.030 [facility] UROBILINOGEN UA (POCT) 0.2 E.U./dL Normal E.U./dL [facility] Absolute lymphocyte countOrd ered By: Christofer Nj on 05-19-2023 Lymphocytes Auto (Unsp spec) [#/Vol] 2.44 10*3/uL 0.83-4.51 [facility] Basophil percentageOrdered B y: Christofer Nj on 05-19-2023 Basophil percentage 2.7 mg/dL 2.5-4.9 [facility] Basophils/100 WBC (Bld) 0.2 % 0-1 [facility] Chloride [Moles/Vol] 111 mmol/L 98-107 [facility] Eosinophils/100 WBC (Bld) 0.7 % 0-5 [facility] Glucose [Mass/Vol] 87 mg/dL 74-106 [facility] Neutrophils (Bld) [#/Vol] 5.2 10*3/uL 2.0-7.7 [facility] Neutrophils/100 WBC (Bld) 62.9 % 47-70 [facility] Potassium [Moles/Vol] 3.8 mmol/L 3.5-5.1 [facility] Sodium [Moles/Vol] 140 mmol/L 136-145 [facility] WBC (Bld) [#/Vol] 8.3 10*3/uL 4.4-11.0 [facility] Blood erythrocytes count (nu mber/volume)Ordered By: Christofer Nj on 05-19-2023 RBC (Bld) [#/Vol] 4.23 10*6/uL 4.2-5.4 [facility] Blood hemoglobin measurement (mass/volume)Ordered By: Christofer Nj on 05-19-2023 Hemoglobin (Bld) [Mass/Vol] 12.1 g/dL 12.0-15.0 [facility] Blood lymphocytes/100 leukoc ytesOrdered By: Christofer Nj on 05-19-2023 Lymphocytes/100 WBC (Bld) 29.5 % 19-41 [facility] Blood monocytes/100 leukocyt esOrdered By: Christofer Nj on 05-19-2023 Monocytes/100 WBC (Bld) 6.5 % 0-10 [facility] Blood platelet mean volumeOr dered By: Christofer Nj on 05-19-2023 Platelet mean volume (Bld) [Entitic vol] 8.6 fL 6.2-12.0 [facility] Determination of erythrocyte mean corpuscular volume (MCV)Ordered By: Christofer Nj on 05-19-2023 MCV (RBC) [Entitic vol] 88.4 fL 81-99 [facility] Hematocrit Auto (Bld) [Volum e fraction]Ordered By: Christofer Nj on 05-19-2023 Hematocrit (Bld) [Volume fraction] 37.4 % 37-47 [facility] Laboratory - Chemistry and C hemistry - challengeOrdered By: Christofer Nj on 05-19-2023 CO2 [Moles/Vol] 25.0 mmol/L 21.0-32.0 [facility] Magnesium [Mass/Vol] 2.0 mg/dL 1.6-2.6 [facility] Urea nitrogen/Creatinine [Mass ratio] 14.0 mg/mg 10-20 [facility] Laboratory - Hematology and Cell countsOrdered By: Christofer Nj on 05-19-2023 Erythrocyte distribution width (RBC) [Entitic vol] 46.5 fL 35.1-43.9 [facility] Erythrocyte distribution width (RBC) [Ratio] 14.3 % 11.6-14.6 [facility] Immature granulocytes/100 WBC (Bld) 0.200 % 0.0-0.9 [facility] Comment on above: IG% - Immature Granu locytes (promyelocytes, myelocytes and metamyelocytes) > 1% indicates that a LEFT SHIFT is Present. MCH (RBC) [Entitic mass] 28.6 pg 27.0-32.0 [facility] Nucleated RBC/100 WBC (Bld) [Ratio] 0 % 0-5 [facility] MCHC Auto (RBC) [Mass/Vol]Or dered By: Christofer Nj on 05-19-2023 MCHC (RBC) [Mass/Vol] 32.4 g/dL 32-36 [facility] No Panel InformationOrdered By: Christofer Nj on 05-19-2023 Estimated Creatinine Clearance Calc 196.49 ml/min [facility] Estimated GFR (MDRD) Amer 225 mL/min >60 [facility] Comment on above: GFR Calc Estimated GFR (MDRD) Non-Af Amer 186 mL/min >60 [facility] Comment on above: Non- GFR Calc Platelets bldOrdered By: Contreras reshma Ondina on 05-19-2023 Platelets (Bld) [#/Vol] 226 10*3/uL 150-450 [facility] Serum or plasma calcium jay urement (mass/volume)Ordered By: Christofer Nj on 05-19-2023 Calcium [Mass/Vol] 7.9 mg/dL 8.5-10.1 [facility] Serum or plasma creatinine m easurement (mass/volume)Ordered By: Christofer Nj on 05-19-2023 Creatinine [Mass/Vol] 0.43 mg/dL 0.55-1.02 [facility] Comment on above: The validity of the calculated GFR & GFRAA in patients over 70 years has not been determined. Clinical correlation is essential. Serum or plasma urea nitroge n measurement (mass/volume)Ordered By: Christofer Nj on 05-19-2023 Urea nitrogen [Mass/Vol] 6 mg/dL 7-18 [facility] Thin prep Papanicolaou smear with manual screeningOrdered By: Christofer Nj on 05-19-2023 Thin prep Papanicolaou smear with manual screening 4 5-15 [facility] Absolute lymphocyte countOrd ered By: Zac Courtney on 05-18-2023 Lymphocytes Auto (Unsp spec) [#/Vol] 1.63 10*3/uL 0.83-4.51 [facility] Basophil percentageOrdered B y: Christofer Nj on 05-18-2023 Basophil percentage 0 SEEN /hpf 0-5 [facility] Basophil percentageOrdered B y: Zac Courtney on 05-18-2023 Basophils/100 WBC (Bld) 0.4 % 0-1 [facility] Bilirubin [Mass/Vol] 1.20 mg/dL 0.20-1.00 [facility] Comment on above: For patients on eltr ombopag therapy, use of Dimension Delight TBIL is not recommended. Chloride [Moles/Vol] 107 mmol/L 98-107 [facility] Eosinophils/100 WBC (Bld) 0.5 % 0-5 [facility] Glucose [Mass/Vol] 102 mg/dL 74-106 [facility] Comment on above: Fasting Glucose resu lt from 100 to 125 mg/dL suggests IMPAIRED HOMEOSTASIS per A.D.A. criteria. Neutrophils (Bld) [#/Vol] 8.6 10*3/uL 2.0-7.7 [facility] Neutrophils/100 WBC (Bld) 77.8 % 47-70 [facility] Potassium [Moles/Vol] 4.6 mmol/L 3.5-5.1 [facility] Protein [Mass/Vol] 7.4 g/dL 6.4-8.2 [facility] Sodium [Moles/Vol] 139 mmol/L 136-145 [facility] WBC (Bld) [#/Vol] 11.1 10*3/uL 4.4-11.0 [facility] Beta hCG serum qualOrdered B y: Zac Courtney on 05-18-2023 Beta HCG ( test) Ql Negative [facility] Bilirubin Test strip Ql (U)O rdered By: Christofer Nj on 05-18-2023 Bilirubin Ql (U) Negative Negative [facility] Blood erythrocytes count (nu mber/volume)Ordered By: Zac Courtney on 05-18-2023 RBC (Bld) [#/Vol] 4.84 10*6/uL 4.2-5.4 [facility] Blood hemoglobin measurement (mass/volume)Ordered By: Zac Courtney on 05-18-2023 Hemoglobin (Bld) [Mass/Vol] 13.7 g/dL 12.0-15.0 [facility] Blood lymphocytes/100 leukoc ytesOrdered By: Zac Courtney on 05-18-2023 Lymphocytes/100 WBC (Bld) 14.8 % 19-41 [facility] Blood monocytes/100 leukocyt esOrdered By: Zac Courtney on 05-18-2023 Monocytes/100 WBC (Bld) 6.0 % 0-10 [facility] Blood platelet mean volumeOr dered By: Zac Courtney on 05-18-2023 Platelet mean volume (Bld) [Entitic vol] 8.7 fL 6.2-12.0 [facility] Determination of erythrocyte mean corpuscular volume (MCV)Ordered By: Zac Courtney on 05-18-2023 MCV (RBC) [Entitic vol] 90.9 fL 81-99 [facility] Hematocrit Auto (Bld) [Volum e fraction]Ordered By: Zac Courtney on 05-18-2023 Hematocrit (Bld) [Volume fraction] 44.0 % 37-47 [facility] Ketones Test strip Ql (U)Ord ered By: Christofer Nj on 05-18-2023 Ketones Ql (U) Negative Negative [facility] Laboratory - Chemistry and C hemistry - challengeOrdered By: Zac Courtney on 05-18-2023 ALP [Catalytic activity/Vol] 66 U/L 45-117 [facility] ALT [Catalytic activity/Vol] 24 U/L 13-56 [facility] CO2 [Moles/Vol] 30.0 mmol/L 21.0-32.0 [facility] Globulin (S) [Mass/Vol] 3.9 g/dL 2.2-4.2 [facility] Lipase [Catalytic activity/Vol] 35 U/L 13-75 [facility] Comment on above: Please note:LIPASE r evised reference range effective 23. New Lipase methodology. Expected to produce lower values than the previous assay method. NEW Reference Range: 13 - 75 U/L Urea nitrogen/Creatinine [Mass ratio] 20.1 mg/mg 10-20 [facility] Laboratory - Hematology and Cell countsOrdered By: Zac Courtney on 05-18-2023 Erythrocyte distribution width (RBC) [Entitic vol] 47.6 fL 35.1-43.9 [facility] Erythrocyte distribution width (RBC) [Ratio] 14.3 % 11.6-14.6 [facility] Immature granulocytes/100 WBC (Bld) 0.500 % 0.0-0.9 [facility] Comment on above: IG% - Immature Granu locytes (promyelocytes, myelocytes and metamyelocytes) > 1% indicates that a LEFT SHIFT is Present. MCH (RBC) [Entitic mass] 28.3 pg 27.0-32.0 [facility] Nucleated RBC/100 WBC (Bld) [Ratio] 0 % 0-5 [facility] MCHC Auto (RBC) [Mass/Vol]Or dered By: Zac Courtney on 05-18-2023 MCHC (RBC) [Mass/Vol] 31.1 g/dL 32-36 [facility] Mucus LM Ql (Urine sed)Order ed By: Christofer Nj on 05-18-2023 Mucus Ql (Urine sed) 0 SEEN /hpf [facility] Nitrite Test strip Ql (U)Ord ered By: Christofer Nj on 05-18-2023 Nitrite Ql (U) Negative Negative [facility] No Panel InformationOrdered By: Zac Courtney on 05-18-2023 Estimated Creatinine Clearance Calc 129.98 ml/min [facility] Estimated GFR (MDRD) Amer 141 mL/min >60 [facility] Comment on above: GFR Calc Estimated GFR (MDRD) Non-Af Amer 116 mL/min >60 [facility] Comment on above: Non- GFR Calc Platelets bldOrdered By: Stoney Courtney on 05-18-2023 Platelets (Bld) [#/Vol] 299 10*3/uL 150-450 [facility] Protein Test strip Ql (U)Ord ered By: Christofer Nj on 05-18-2023 Protein Ql (U) 15 mg/dl Negative [facility] Serum or plasma albumin jay urement (mass/volume)Ordered By: Zac Courtney on 05-18-2023 Albumin [Mass/Vol] 3.5 g/dL 3.2-5.0 [facility] Serum or plasma albumin/glob ulin mass ratioOrdered By: Zac Courtney on 05-18-2023 Albumin/Globulin [Mass ratio] 0.9 {ratio} 0.9-2.4 [facility] Serum or plasma calcium jay urement (mass/volume)Ordered By: Zac Courtney on 05-18-2023 Calcium [Mass/Vol] 9.1 mg/dL 8.5-10.1 [facility] Serum or plasma creatinine m easurement (mass/volume)Ordered By: Zac Courtney on 05-18-2023 Creatinine [Mass/Vol] 0.65 mg/dL 0.55-1.02 [facility] Comment on above: The validity of the calculated GFR & GFRAA in patients over 70 years has not been determined. Clinical correlation is essential. Serum or plasma urea nitroge n measurement (mass/volume)Ordered By: Zac Courtney on 05-18-2023 Urea nitrogen [Mass/Vol] 13 mg/dL 7-18 [facility] Squamous epithelial cells de tection in urine sediment by light microscopyOrdered By: Christofer Nj on 05-18-2023 Epithelial cells.squamous LM Ql (Urine sed) 0 SEEN /hpf 5-10 [facility] Thin prep Papanicolaou smear with manual screeningOrdered By: Zac Courtney on 05-18-2023 Thin prep Papanicolaou smear with manual screening 7 U/L 15-37 [facility] Thin prep Papanicolaou smear with manual screening 2 5-15 [facility] Urine blood detectionOrdered By: Christofer Nj on 05-18-2023 RBC Ql (U) Negative Negative [facility] RBC Ql (U) 0 SEEN /hpf 0-5 [facility] Urine clarityOrdered By: Contreras Nj on 05-18-2023 Clarity (U) Sl. Cloudy Clear [facility] Urine color determinationOrd ered By: Christofer Nj on 05-18-2023 Color (U) Yellow Yellow [facility] Urine glucose detectionOrder ed By: Christofer Nj on 05-18-2023 Glucose Ql (U) Normal mg/dl Normal [facility] Urine leukocyte esterase det ection by dipstickOrdered By: Christofer Nj on 05-18-2023 Leukocyte esterase Test strip Ql (U) 25 /ul Negative [facility] Urine pHOrdered By: Christofer Nj on 05-18-2023 pH (U) 7.0 [pH] 5.0 - 8.0 [facility] Urine sediment bacteria coun t by microscopy (number/high power field)Ordered By: Christofer Nj on 05-18-2023 Bacteria LM.HPF (Urine sed) [#/Area] 0 /[HPF] None Seen [facility] Urine specific gravity measu rementOrdered By: Christofer Nj on 05-18-2023 Specific gravity (U) [Rel density] 1.010 1.002-1.030 [facility] Urobilinogen Auto test strip Ql (U)Ordered By: Christofer Nj on 05-18-2023 Urobilinogen Ql (U) Normal mg/dl Normal [facility] UA DIP, URINE (POC)on 2022 BILIRUBIN UA (POCT) Negative Negative [facility] CLARITY UA (POCT) Clear [facility] COLOR UA (POCT) Yellow [facility] GLUCOSE UA (POCT) Negative Negative mg/dL [facility] HEMOGLOBIN/BLOOD UA (POCT) Large Abnormal Negative [facility] KETONE UA (POCT) Negative Negative mg/dL [facility] LEUKOCYTES UA (POCT) Small Abnormal [facility] NITRITE UA (POCT) Negative Negative [facility] PH UA (POCT) 7.0 4.5 - 8.0 [facility] Protein Ql (U) Negative Negative mg/dL [facility] SPECIFIC GRAVITY UA (POCT) 1.010 1.005 - 1.030 [facility] UROBILINOGEN UA (POCT) 0.2 E.U./dL Normal E.U./dL [facility] Absolute lymphocyte countOrd ered By: Zac Rzo on 04-30-2023 Lymphocytes Auto (Unsp spec) [#/Vol] 1.42 10*3/uL 0.83-4.51 [facility] Basophil percentageOrdered B y: Zac Courtney on 04-30-2023 Basophils/100 WBC (Bld) 0.3 % 0-1 [facility] Chloride [Moles/Vol] 107 mmol/L 98-107 [facility] Eosinophils/100 WBC (Bld) 0.3 % 0-5 [facility] Glucose [Mass/Vol] 102 mg/dL 74-106 [facility] Comment on above: Fasting Glucose resu lt from 100 to 125 mg/dL suggests IMPAIRED HOMEOSTASIS per A.D.A. criteria. Neutrophils (Bld) [#/Vol] 5.3 10*3/uL 2.0-7.7 [facility] Neutrophils/100 WBC (Bld) 72.9 % 47-70 [facility] Potassium [Moles/Vol] 3.4 mmol/L 3.5-5.1 [facility] Sodium [Moles/Vol] 140 mmol/L 136-145 [facility] WBC (Bld) [#/Vol] 7.2 10*3/uL 4.4-11.0 [facility] Beta hCG serum qualOrdered B y: Zac Courtney on 04-30-2023 Beta HCG ( test) Ql Negative [facility] Blood erythrocytes count (nu mber/volume)Ordered By: Zac Courtney on 04-30-2023 RBC (Bld) [#/Vol] 4.78 10*6/uL 4.2-5.4 [facility] Blood hemoglobin measurement (mass/volume)Ordered By: Zac Courtney on 04-30-2023 Hemoglobin (Bld) [Mass/Vol] 14.0 g/dL 12.0-15.0 [facility] Blood lymphocytes/100 leukoc ytesOrdered By: Zac Courtney on 04-30-2023 Lymphocytes/100 WBC (Bld) 19.7 % 19-41 [facility] Blood monocytes/100 leukocyt esOrdered By: Zac Courtney on 04-30-2023 Monocytes/100 WBC (Bld) 6.4 % 0-10 [facility] Blood platelet mean volumeOr dered By: Zac Courtney on 04-30-2023 Platelet mean volume (Bld) [Entitic vol] 8.3 fL 6.2-12.0 [facility] COVID-19 virus antigen assay Ordered By: Zac Courtney on 04-30-2023 SARS-CoV-2 (COVID-19) Ag IA.rapid Ql (Resp) [facility] SARS-CoV-2 (COVID-19) Ag IA.rapid Ql (Resp) [facility] Determination of erythrocyte mean corpuscular volume (MCV)Ordered By: Zac Courtney on 04-30-2023 MCV (RBC) [Entitic vol] 88.3 fL 81-99 [facility] Hematocrit Auto (Bld) [Volum e fraction]Ordered By: Zac Courtney on 04-30-2023 Hematocrit (Bld) [Volume fraction] 42.2 % 37-47 [facility] Laboratory - Chemistry and C hemistry - challengeOrdered By: Zac Courtney on 04-30-2023 CO2 [Moles/Vol] 29.0 mmol/L 21.0-32.0 [facility] Urea nitrogen/Creatinine [Mass ratio] 8.8 mg/mg 10-20 [facility] Laboratory - Drug toxicology Ordered By: Zac Courtney on 04-30-2023 Amphetamines Ql (U) Positive <1000 ng/mL [facility] Benzodiazepines Ql (U) Negative < 200 ng/mL [facility] Cannabinoids Screen Ql (U) Negative < 50 ng/mL [facility] Cocaine Ql (U) Negative < 300 ng/mL [facility] Opiates Ql (U) Negative < 300 ng/mL [facility] Laboratory - Hematology and Cell countsOrdered By: Zac Courtney on 04-30-2023 Erythrocyte distribution width (RBC) [Entitic vol] 46.7 fL 35.1-43.9 [facility] Erythrocyte distribution width (RBC) [Ratio] 14.4 % 11.6-14.6 [facility] Immature granulocytes/100 WBC (Bld) 0.400 % 0.0-0.9 [facility] Comment on above: IG% - Immature Granu locytes (promyelocytes, myelocytes and metamyelocytes) > 1% indicates that a LEFT SHIFT is Present. MCH (RBC) [Entitic mass] 29.3 pg 27.0-32.0 [facility] Nucleated RBC/100 WBC (Bld) [Ratio] 0 % 0-5 [facility] MCHC Auto (RBC) [Mass/Vol]Or dered By: Zac Courtney on 04-30-2023 MCHC (RBC) [Mass/Vol] 33.2 g/dL 32-36 [facility] No Panel InformationOrdered By: Zac Courtney on 04-30-2023 MDMA (Ecstasy) Screen Negative < 500 ng/mL [facility] Urine Barbiturates Screen Negative < 200 ng/mL [facility] Urine Drug Screen Comment [facility] Comment on above: CONFIRMATORY TESTING FOR [...] Urine Methadone Screen Negative < 300 ng/mL [facility] Estimated Creatinine Clearance Calc 106.36 ml/min [facility] Estimated GFR (MDRD) Amer 133 mL/min >60 [facility] Comment on above: GFR Calc Estimated GFR (MDRD) Non-Af Amer 110 mL/min >60 [facility] Comment on above: Non- GFR Calc Ethyl Alcohol Level < 3.0 mg/dL [facility] Comment on above: The serum:whole bloo d ethanol ratio is approximately 1.14and varies slightly with hematocrit. Medical Alcohol reference interval and critical value innon-tolerant individuals; 50 - 100 Impairment 100 Intoxication 100 - 250 Severe Poisoning 250 - 400 Deep/possible fatal coma Platelets bldOrdered By: Stoney Courtney on 04-30-2023 Platelets (Bld) [#/Vol] 265 10*3/uL 150-450 [facility] Serum or plasma calcium jay urement (mass/volume)Ordered By: Zac Courtney on 04-30-2023 Calcium [Mass/Vol] 8.9 mg/dL 8.5-10.1 [facility] Serum or plasma creatinine m easurement (mass/volume)Ordered By: Zac Courtney on 04-30-2023 Creatinine [Mass/Vol] 0.68 mg/dL 0.55-1.02 [facility] Comment on above: The validity of the calculated GFR & GFRAA in patients over 70 years has not been determined. Clinical correlation is essential. Serum or plasma urea nitroge n measurement (mass/volume)Ordered By: Zac Courtney on 04-30-2023 Urea nitrogen [Mass/Vol] 6 mg/dL 7-18 [facility] Thin prep Papanicolaou smear with manual screeningOrdered By: Zac Courtney on 04-30-2023 Thin prep Papanicolaou smear with manual screening 4 5-15 [facility] Urine phencyclidine (PCP) de tectionOrdered By: Zac Courtney on 04-30-2023 Phencyclidine Ql (U) Negative < 25 ng/mL [facility] UA DIP, URINE (POC)on 2022 BILIRUBIN UA (POCT) Negative Negative [facility] CLARITY UA (POCT) Cloudy [facility] COLOR UA (POCT) Dark yellow [facility] GLUCOSE UA (POCT) Negative Negative mg/dL [facility] HEMOGLOBIN/BLOOD UA (POCT) Moderate Abnormal Negative [facility] KETONE UA (POCT) Trace Negative mg/dL [facility] LEUKOCYTES UA (POCT) Small Abnormal Negative [facility] NITRITE [facility]A (POCT) Negative Negative [facility] PH UA (POCT) 5.5 4.5 - 8.0 [facility] Protein Ql (U) Trace Abnormal Negative mg/dL [facility] SPECIFIC GRAVITY UA (POCT) 1.025 1.005 - 1.030 [facility] UROBILINOGEN UA (POCT) 1.0 E.U./dL Normal E.U./dL [facility] PAP TESTon 03-18-2023 Case Report Gynecologic Cytology Report Case: [id number] Authorizing Provider: Humberto Schultz MD Collected: 03/12/2023 11:38 AM Ordering Location: Obstetrics/Gynecology Received: 03/12/2023 02:06 PM First Screen: Mirta Chen, CT, ASCP Specimen: Pap Test, ThinPrep, Cervix [facility] Clinical History Intra Uterine Device Routine Exam [facility] Cytology Interpretation Negative [facility] FINAL DIAGNOSIS A - Cervix Satisfactory for interpretation, No endocervical component Negative for Intraepithelial lesion or malignancy. [facility] HPV Reflex HPV if ASCUS [facility] LMP 02/03/2023 [facility] Pap Disclaimer The Pap Smear is a screening test for cervical cancer. False negative results occur with all screening tests, emphasizing the need for rescreening at recommended intervals, and clinical correlation. [facility] PAP Stem Maker Comment This specimen has be en analyzed by the ThinPrep Imaging System, an automated imaging and review system, which assists the laboratory in evaluating cells on ThinPrep Pap tests. Following automated imaging, selected rosales from every slide are reviewed by a software test and validation engineer. [facility] Performing Lab Technical component, software test and validation engineer screening performed at [facility], [address], [facility] [address] CLIA# [id number] Diagnostic interpretation performed at [facility] [address] [address] CLIA# [id number] Timber Selector: Ariel Macias M.D. [facility] XR SHOULDER GENERAL 3V OR MO RE AP/TRUE AP/OTHER LEFTon 02-12-2023 [facility] XR Shoulder - left 3 Viewson 02-12-2023 IMPRESSION: Negative 3 views of the left shoulder. Quality Control Tech: PK Transcribe Date/Time: Feb 12 2023 3:24P Dictated by : ALIREZA HEARN MD This examination was interpreted and the report reviewed and electronically signed by: ALIREZA HEARN MD on Feb 12 2023 3:28PM [facility] DIVISION OF RADIOLOGY * * *Final [...] soft tissue swelling. DIVISION OF RADIOLOGY Provider, [facility] - 02/12/2023 * * *Final Report* * [...] Negative 3 views of the left shoulder. Quality Control Tech: PK Transcribe Date/Time: Feb 12 2023 3:24P Dictated by : ALIREZA HEARN MD This examination was interpreted and the report reviewed and electronically signed by: ALIREZA HEARN MD on Feb 12 2023 3:28PM EST [facility] Radiology Study observation (narrative) [facility] XR Shoulder - left 3 ViewsOr dered By: Ccf Provider on 02-12-2023 [facility] XR CHEST 2V FRONTAL/LATon [facility] XR Chest PA and Lateralon IMPRESSION: No acute radiographic abnormality. Quality Control Tech: PK Transcribe Date/Time: Dec 10 2022 12:36P Dictated by : HELENE ALEXANDER MD This examination was interpreted and the report reviewed and electronically signed by: HELENE ALEXANDER MD on Dec 10 2022 12:39PM EST DIVISION OF RADIOLOGY * * *Final [...] soft tissues: Unremarkable. DIVISION OF RADIOLOGY Provider, [facility] Stacy Darden - 12/10/2022 * * *Final Report* * [...] Unremarkable. IMPRESSION IMPRESSION: No acute radiographic abnormality. Quality Control Tech: PSCB Transcribe Date/Time: Dec 10 2022 12:36P Dictated by : HELENE ALEXANDER MD This examination was interpreted and the report reviewed and electronically signed by: HELENE ALEXANDER MD on Dec 10 2022 12:39PM EST [facility] Radiology Study observation (narrative) [facility] XR Chest PA and LateralOrder ed By: [facility] Provider on 12-10-2022 [facility] LABORATORYOrdered By: Karuna Julio on 10-01-2022 Beta HCG ( test) Ql (U) Negative (10/01/22 9:25 AM) [facility] Work Phone: .Auto Diffon 09-24-2022 Basophil, Absolute 0.0 10 3/mcL Normal 0.0-0.3 [facility] ([place]) Comment on above: Performed By: #### C BC, ADIFF, CMP, PHOS, MG, GFR, ANEU #### [address] [address] Basophils/100 WBC (Bld) 0.3 % Normal 0.0-2.5 [facility] ([place]) Comment on above: Performed By: #### C BC, ADIFF, CMP, PHOS, MG, GFR, ANEU #### [address] [address] Eosinophil, Absolute 0.1 10 3/mcL Normal 0.0-0.7 [facility] ([place]) Comment on above: Performed By: #### C BC, ADIFF, CMP, PHOS, MG, GFR, ANEU #### [address] [address] Eosinophils/100 WBC (Bld) 1.3 % Normal 0.0-6.0 [facility] ([place]) Comment on above: Performed By: #### C BC, ADIFF, CMP, PHOS, MG, GFR, ANEU #### [address] [address] Lymphocyte, Absolute 1.3 10 3/mcL Normal 0.9-4.3 [facility] ([place]) Comment on above: Performed By: #### C BC, ADIFF, CMP, PHOS, MG, GFR, ANEU #### [address] [address] Lymphocytes/100 WBC (Bld) 23.1 % Normal 20.0-40.0 [facility] ([place]) Comment on above: Performed By: #### C BC, ADIFF, CMP, PHOS, MG, GFR, ANEU #### [address] [address] Monocyte, Absolute 0.3 10 3/mcL Normal 0.1-1.4 [facility] ([place]) Comment on above: Performed By: #### C BC, ADIFF, CMP, PHOS, MG, GFR, ANEU #### [address] [address] Monocytes/100 WBC (Bld) 5.6 % Normal 2.0-13.0 [facility] ([place]) Comment on above: Performed By: #### C BC, ADIFF, CMP, PHOS, MG, GFR, ANEU #### [address] [address] Neutrophils/100 WBC (Bld) 69.7 % Normal 50.0-75.0 [facility] ([place]) Comment on above: Performed By: #### C BC, ADIFF, CMP, PHOS, MG, GFR, ANEU #### [address] [address] .GFRon 09-24-2022 GFR Non- >60 Normal [facility] ([place]) Comment on above: Result Comment: GFR Population [...] ADIFF, CMP, PHOS, MG, GFR, ANEU #### [address] [address] GFR >60 Normal [facility] ([place]) Comment on above: Result Comment: GFR Population [...] ADIFF, CMP, PHOS, MG, GFR, ANEU #### [address] [address] .NEUABSon 09-24-2022 Neutrophil, Absolute 3.9 10 3/mcL Normal 2.3-8.1 [facility] ([place]) Comment on above: Performed By: #### C BC, ADIFF, CMP, PHOS, MG, GFR, ANEU #### [address] [address] BMPon 09-24-2022 BUN/Creatinine Ratio 16.7 ratio Normal 10.0-22.0 [facility] ([place]) Comment on above: Performed By: #### C BC, ADIFF, CMP, PHOS, MG, GFR, ANEU #### [address] [address] Calcium [Mass/Vol] 9.1 mg/dL Normal 8.7-10.4 [facility] ([place]) Comment on above: Performed By: #### C BC, ADIFF, CMP, PHOS, MG, GFR, ANEU #### [address] [address] Chloride [Moles/Vol] 106 mmol/L Normal 98-110 [facility] ([place]) Comment on above: Performed By: #### C BC, ADIFF, CMP, PHOS, MG, GFR, ANEU #### [address] [address] CO2 [Moles/Vol] 24 mmol/L Normal 22-32 [facility] ([place]) Comment on above: Performed By: #### C BC, ADIFF, CMP, PHOS, MG, GFR, ANEU #### [address] [address] Creatinine [Mass/Vol] 0.54 mg/dL Normal 0.50-1.20 Counts include 234 beds at the [facility] ([place]) Comment on above: Performed By: #### C BC, ADIFF, CMP, PHOS, MG, GFR, ANEU #### [address] [address] Electrolyte Balance 12.0 mEq/L Normal 4.0-15.0 [facility] ([place]) Comment on above: Performed By: #### C BC, ADIFF, CMP, PHOS, MG, GFR, ANEU #### [place] [id number] Glucose [Mass/Vol] 104 mg/dL Normal 70-110 [facility] ([place]) Comment on above: Performed By: #### C BC, ADIFF, CMP, PHOS, MG, GFR, ANEU #### [address] [address] Potassium [Moles/Vol] 4.0 mmol/L Normal 3.5-5.0 Counts include 234 beds at the [facility] ([place]) Comment on above: Result Comment: Spec imen slightly hemolyzed. Performed By: #### C BC, ADIFF, CMP, PHOS, MG, GFR, ANEU #### [address] [address] Sodium [Moles/Vol] 142 mmol/L Normal 136-145 [facility] ([place]) Comment on above: Performed By: #### C BC, ADIFF, CMP, PHOS, MG, GFR, ANEU #### [place] [address] Urea nitrogen [Mass/Vol] 9.0 mg/dL Normal 8.0-22.0 [facility] ([place]) Comment on above: Performed By: #### C BC, ADIFF, CMP, PHOS, MG, GFR, ANEU #### [place] [id number] CBCon 09-24-2022 Erythrocyte distribution width (RBC) [Ratio] 15.5 % Normal 11.5-15.5 [facility] ([place]) Comment on above: Performed By: #### C BC, ADIFF, CMP, PHOS, MG, GFR, ANEU #### [place] [address] Hematocrit (Bld) [Volume fraction] 39.3 % Normal 34.0-46.0 [facility] ([place]) Comment on above: Performed By: #### C BC, ADIFF, CMP, PHOS, MG, GFR, ANEU #### [place] [address] Hgb 12.8 G/dL Normal 12.0-16.0 [facility] ([place]) Comment on above: Performed By: #### C BC, ADIFF, CMP, PHOS, MG, GFR, ANEU #### [place] [id number] MCH (RBC) [Entitic mass] 25.6 pg Low 27.0-33.0 [facility] ([place]) Comment on above: Performed By: #### C BC, ADIFF, CMP, PHOS, MG, GFR, ANEU #### [place] [id number] MCHC 32.6 G/dL Normal 32.0-36.0 [facility] ([place]) Comment on above: Performed By: #### C BC, ADIFF, CMP, PHOS, MG, GFR, ANEU #### [place] [address] MCV (RBC) [Entitic vol] 78.5 fL Low 80.0-99.0 [facility] ([place]) Comment on above: Performed By: #### C BC, ADIFF, CMP, PHOS, MG, GFR, ANEU #### [place] [address] Platelet 275 10 3/mcL Normal 150-450 [facility] ([place]) Comment on above: Performed By: #### C BC, ADIFF, CMP, PHOS, MG, GFR, ANEU #### [place] [address] Platelet mean volume (Bld) [Entitic vol] 6.8 fL Normal 6.6-10.5 [facility] ([place]) Comment on above: Performed By: #### C BC, ADIFF, CMP, PHOS, MG, GFR, ANEU #### [place] [address] RBC 5.01 10 6/mcL Normal 4.10-5.30 [facility] ([place]) Comment on above: Performed By: #### C BC, ADIFF, CMP, PHOS, MG, GFR, ANEU #### [place] [address] WBC 5.6 10 3/mcL Normal 4.5-10.8 [facility] ([place]) Comment on above: Performed By: #### C BC, ADIFF, CMP, PHOS, MG, GFR, ANEU #### [place] [address] LABORATORYOrdered By: SYSTEM SYSTEM on 09-24-2022 Basophils (Bld) [#/Vol] 0.0 103/mcL Invalid Interpretation Code 0.0 - 0.3 10^3/mcL AH Workflow SS Basophils/100 WBC (Bld) 0.3 % [...] Invalid Interpretation Code 0.0 - 0.7 10^3/mcL Workflow SS Eosinophils/100 WBC (Bld) 1.3 % Invalid Interpretation Code 0.0 - 6.0 % Workflow SS Erythrocyte distribution width (RBC) [Ratio] 15.5 % Invalid Interpretation Code 11.5 - 15.5 % Workflow SS GFR/1.73 sq M.predicted among blacks [...] Invalid Interpretation Code 0.9 - 4.3 10^3/mcL Workflow SS Lymphocytes/100 WBC (Bld) 23.1 % Invalid Interpretation Code 20.0 - 40.0 % Workflow SS MCH (RBC) [Entitic mass] 25.6 pg Invalid Interpretation Code 27.0 - 33.0 pg Workflow SS MCHC 32.6 G/dL Invalid Interpretation Code 32.0 - 36.0 G/dL AH Workflow SS MCV (RBC) [Entitic vol] 78.5 fL Invalid Interpretation Code 80.0 - 99.0 fL Workflow SS Monocytes (Bld) [#/Vol] 0.3 103/mcL Invalid Interpretation Code 0.1 - 1.4 10^3/mcL Workflow SS Monocytes/100 WBC (Bld) 5.6 % Invalid Interpretation Code 2.0 - 13.0 % Workflow SS Neutrophils (Bld) [#/Vol] 3.9 103/mcL Invalid Interpretation Code 2.3 - 8.1 10^3/mcL Workflow SS Neutrophils/100 WBC (Bld) 69.7 % Invalid Interpretation Code 50.0 - 75.0 % Workflow SS Platelet mean volume (Bld) [Entitic vol] 6.8 fL Invalid Interpretation Code 6.6 - 10.5 fL Workflow SS Platelets (Bld) [#/Vol] 275 103/mcL Invalid Interpretation Code 150 - 450 10^3/mcL Workflow SS Potassium [Moles/Vol] 4.0 mmol/L Invalid Interpretation Code 3.5 - 5.0 mEq/L ADM SS Comment on above: Result Comment: Spec imen slightly hemolyzed. RBC (Bld) [#/Vol] 5.01 106/mcL Invalid Interpretation Code 4.10 - 5.30 10^6/mcL Workflow SS Sodium [Moles/Vol] 142 mmol/L Invalid Interpretation Code 136 - 145 mEq/L ADM SS Urea nitrogen [Mass/Vol] 9.0 mg/dL Invalid Interpretation Code 8.0 - 22.0 mg/dL ADM SS Urea nitrogen/Creatinine [Mass ratio] 16.7 ratio Invalid Interpretation Code 10.0 - 22.0 ratio ADM SS WBC (Bld) [#/Vol] 5.6 103/mcL Invalid Interpretation Code 4.5 - 10.8 10^3/mcL Workflow SS CT ABDOMEN/PELVIS W/CONTRAST on 09-01-2022 CT ABDOMEN/PELVIS W/CONTRAST ORIGINAL EXAMINATION: CT OF THE ABDOMEN AND PELVIS WITH HOKHJUAS43/18/2022 12:19 pm TECHNIQUE: CT of the abdomen [...] Date: 09/01/2022 4:58:51 PM Ordering Provider: DAY VELAZQUEZ [facility]ly [facility] ([place]) Office Visit (Urology)on Follow-up visit Patient Discussion/Summary 27 yo here for postop visit after rectocele repair and perineoplasty Overall doing well, will recruit her mom/grandmother to help her with her duaghter at home Continue stool softener plan to start PT at 6 weeks Chief Complaint FUV History of Present X[age]jipt66 yo s/p perineoplasty and rectocele repair. She [...] complaint. Vitals Vital Signs Recorded: 11Aug2022 11:16AM Xgwfbwdlsfk74.2 F Heart Rate84 Uleeerxp592 Ifpwtroaa38 Height5 ft 4 in Xswzbd548 lb BMI Rmpxabpjex49.35 kg/m2 BSA Calculated2.22 Tobacco Useb) No Falls [...] Aug 14 2022 11:00AM EST (Author) Normal [employer] Tobacco Screening.on 022 Fall risk assessment a) No falls within the last year [facility] [employer] Work Phone: Tobacco use status CPHS b) No MY-Eiwuofi-X edar [place] Work Phone: [facility] Surgical Pathology Dep artmenton 07-22-2022 [facility] Surgical Pathology Department Name LEELEE ZAMORA Pathologist: DMITRY OCHOA MD Date of Procedure: 07/22/2022 Date Received: 07/22/2022 Date Reported 08/01/2022 Submitting Physician: DARRYL RODRIGUEZ MD,MPH Location: [facility] External # FINAL DIAGNOSIS A. VAGINAL MUCOSA: -- SQUAMOUS LINED MUCOSA WITH REACTIVE CHANGES. Electronically Signed Out By DMITRY OCHOA MD/SSV By the signature on this report, the individual or group listed as making the Final Interpretation/Diagnosis certifies that they have reviewed this case. Diagnostic interpretation performed at [facility] [address] [id number] Clinical History: Physician Contact Number: [phone] Fixative (A): Formalin Clinical Diagnosis History 27-year-old [...] failed she saw Dr. Yemi Baez in [place] and had a revision 7 days after delivery. Unfortunately she has continued to have stool in the vagina ended up with an abscess and C. difficile. She later had a second revision with Dr. Velazquez at [place] which also failed per the patient and [...] x 1.2 cm. The specimen is sectioned. [employer] sections are submitted in one cassette. XL xli/07/22/2022 [facility] Department of Pathology [address] [place] [address] Normal [facility] Comment on above: Performed By: #### A #### [facility] Surgical Pathology Department [address] [place] [address] No Panel Informationon 07-22 ZY-Yopazgj-D alia [facility] Work Phone: Order Reconciliationon 07-22 Order Reconciliation Page 1 Discharge Reconciliation Document Reconciliation Type: Discharge requested on behalf of Darryl Rodriguez (Physician) done by Darryl Rodriguez () Discharge - Reconciliation: 22-Jul-2022 11:49 by: Kanwal Evans (Resident)) Discharge - Reset to Incomplete: 22-Jul-2022 15:04 by: Darryl Rodriguez () Discharge - Reconciliation: 22-Jul-2022 15:05 by: Darryl [...] Once, PRN For SBP>180, DBP>100, HR>60Clinician Notes: Edan-operative order ONLY 22-Jul-2022 09:08 Labetalol Injectable is [...] Additional Patie (more content not included)... Normal [facility] Patient Profile - Preop v3on 07-22-2022 Patient Profile - Preop v3 Patient Profile - Preop: Initial Info: Patient DemographicsName: LEELEE ZAMORA Date: 1995 Address: [address] [place] [address] Primary Phone [phone] How to be Addressedyulissaley Spoken Language PreferredEnglish Stated Reason for Admissionrectocele repair Primary Contact Name and Numbergary [phone] Medications Brought to Hospitalno General Health: Weight in kg122.8 kilogram(s) Weight in cyt628.7 pound(s) Weight Methodactual (measured) Scale Typestanding Height in feet5 feet Height in inches2.95 inch(es) Height in cm159.8 centimeter(s) Height Methodstated BMI (kg/m2)48.088 square meter Patient or Family Member Reaction to Anesthesiano previous reaction; no previous family member reaction Blood Avoidance/Restrictionsnon e Previous Transfusion Reactionnot applicable Health Mgmt: Symptoms/Conditions Managed at HomePMH: none PSH: perineal laceration revision 2020 rectovaginal fistula repair, divertin ileostomy, February 2022 ileostomy reversal. May 2022 exam under anesthesia. Are You no (1) Are You Currently Breastfeedingno Barriers to Managing Healthnone Relationship/Environ: Lives Withspouse Living Arrangementsapartment Resource/Environmental Concernsnone Anticipated [place] [facility] Anticipated at Transitionnone Tobacco Use: Tobacco Useno Pre-op Checklist: Arrival [id number] Arrival Time11:10 NPOyes Last Food Jrqrce26-Sja-3621 23:00 Last Clear Fluid Dnzluc68-Xbe-4245 08:00 ID Band On Patientpatient ID (name), [...] Surgery > 30 days 22-Jul-2022 06:30 Normal [facility] CORONAVIRUS 2019, SCREEN ASY MPTOMATICon 07-20-2022 SARS-CoV-2 (COVID-19) RNA SANJEEV+probe Ql (Unsp spec) Not detected Normal Not Detected [facility] Comment on above: Result Comment: . This [...] patient management decisions. Fact sheet for providers: https://www.fda.gov/media/230618/download Fact sheet for patients: https://www.fda.gov/media/355622/download This test has received FDA Emergency Use Authorization (EUA) and has been verified by [facility] ([facility]). This test is only authorized for the duration of time that circumstances exist to justify the authorization of the emergency use of in vitro diagnostic tests for the detection of SARS-CoV-2 virus and/or diagnosis of COVID-19 infection under section 564(b)(1) of the Act, 21 U.S.C. 360bbb-3(b)(1), unless the authorization is terminated or revoked sooner. [facility] is certified under CLIA-88 as qualified to perform high complexity testing. Testing is performed in the [facility] laboratories located at [address] [place] [address]. Performed By: #### C OVSC #### [address] [place] [address] Covid 19 Resultson 2 SARS-CoV-2 (COVID-19) RNA [...] You may also be contacted by the [facility] to see if any of your close [...] or Naproxen (Aleve) can also be used. Hsuy-alu-jqkvfzd cough and cold medicines can be used according to the instructions on the package. Some zstv-knx-yiskjdu medicines also contain acetaminophen. Make sure you [...] water are not available, use alcohol-based hand splash line operator. Avoid touching your eyes, nose, and mouth [...] 24 wanda (more content not included)... Normal [facility] CORONAVIRUS 2019, SCREEN ASY MPTOMATICon 07-19-2022 Lab Specimen Source Nasal, Nasopharyngeal Normal [facility] Comment on above: Performed By: #### C OVSC #### [facility] [address] [place] [address] Coronavirus 2019 RNA by PCR, Screening Asymptomticon 07-19-2022 Coronavirus 2019 RNA by PCR, Screening Asymptomtic Not detected Normal See Below JH-Ophnsqg-B david Nikhil Work Phone: Comment on above: SOURCE: Nasal, [...] make patient management decisions.Fact sheet for providers: https://www.fda.gov/media/020556/downloadFact sheet for patients: https://www.fda.gov/media/842006/downloadThis test has received FDA Emergency Use Authorization (EUA) and has been verified by [facility] ([facility]). This test is only authorized for the duration of time that circumstances exist to justify the authorization of the emergency use of in vitro diagnostic tests for the detection of SARS-CoV-2 virus and/or diagnosis of COVID-19 infection under section 564(b)(1) of the Act, 21 U.S.C. 360bbb-3(b)(1), unless the authorization is terminated or revoked sooner. [facility] is certified under CLIA-88 as qualified to perform high complexity testing. Testing is performed in the [facility] laboratories located at [address] [place] [address]. Order Reconciliationon 06-11 Order Reconciliation Page 1 [...] 3 times a day, As Needed Normal [facility] Patient Profile - Preop v3on 06-11-2022 Patient Profile - Preop v3 Patient Profile - Preop: Initial Info: Patient DemographicsName: LEELEE ZAMORA Date: 1995 Address: [address] [place] [address] Primary Phone [phone] How to be AddressedLeelee Spoken Language PreferredEnglish Stated Reason for Admissionvag/colo fistula Primary Contact Name and NumberPaula- [phone] Medications Brought to Hospitalno General Health: Weight in kg123.4 kilogram(s) Weight in hdr314 pound(s) Weight Methodactual (measured) Scale Typestanding Height in feet5 feet Height in inches3.98 inch(es) Height in cm162.5 centimeter(s) BMI (kg/m2)46.731 square meter Patient or Family Member Reaction to Anesthesiapatient reaction Patient Reaction to Anesthesiaagitation Blood Avoidance/Restrictionsnon e Previous Transfusion Reactionno Health Mgmt: Symptoms/Conditions Managed at Homeobstetric/gynecologic ; gastrointestinal Are You no (1) Are You Currently Breastfeedingno Barriers to Managing Healthnone Relationship/Environ: Lives Withspouse; dependent child(erwin) Living Arrangementsapartment Resource/Environmental Concernsnone Anticipated [place] [facility] Anticipated at Transitionnone Tobacco Use: Tobacco Useno Pre-op Checklist: Arrival [id number] Arrival Time11:45 Procedure TypeEUA NPOyes ID Band [...] Surgery > 30 days 11-Jun-2022 00:01 Normal [facility] CORONAVIRUS 2019, SCREEN ASY MPTOMATICon 06-10-2022 SARS-CoV-2 (COVID-19) RNA SANJEEV+probe Ql (Unsp spec) Not detected Normal Not Detected [facility] Comment on above: Result Comment: . This [...] patient management decisions. Fact sheet for providers: https://www.fda.gov/media/621333/download Fact sheet for patients: https://www.fda.gov/media/034986/download This test has received FDA Emergency Use Authorization (EUA) and has been verified by [facility] ([facility]). This test is only authorized for the duration of time that circumstances exist to justify the authorization of the emergency use of in vitro diagnostic tests for the detection of SARS-CoV-2 virus and/or diagnosis of COVID-19 infection under section 564(b)(1) of the Act, 21 U.S.C. 360bbb-3(b)(1), unless the authorization is terminated or revoked sooner. [facility] is certified under CLIA-88 as qualified to perform high complexity testing. Testing is performed in the [facility] laboratories located at [address] [place] [address]. Performed By: #### C OVSC #### [address] [place] [address] Covid 19 Resultson 2 SARS-CoV-2 (COVID-19) RNA [...] You may also be contacted by the [facility] to see if any of [...] or Naproxen (Aleve) can also be used. Rctl-yuq-mmmurgb cough and cold medicines can be used according to the instructions on the package. Some sycd-vym-smglilj medicines also contain acetaminophen. Make sure you [...] water are not available, use alcohol-based hand splash line operator. Avoid touching your eyes, nose, and mouth [...] 24 wanda (more content not included)... Normal [facility] CORONAVIRUS 2019, SCREEN ASY MPTOMATICon 06-09-2022 Lab Specimen Source Nasal, Nasopharyngeal Normal [facility] Comment on above: Performed By: #### C OVSC #### [facility] [address] [place] [address] Coronavirus 2019 RNA by PCR, Screening Asymptomticon 06-09-2022 Coronavirus 2019 RNA by PCR, Screening Asymptomtic Not detected Normal See Below WZ-Aorldkh-Z david Tejeda Work Phone: Comment on above: [...] make patient management decisions.Fact sheet for providers: https://www.fda.gov/media/009192/downloadFact sheet for patients: https://www.fda.gov/media/197127/downloadThis test has received FDA Emergency Use Authorization (EUA) and has been verified by [facility] ([facility]). This test is only authorized for the duration of time that circumstances exist to justify the authorization of the emergency use of in vitro diagnostic tests for the detection of SARS-CoV-2 virus and/or diagnosis of COVID-19 infection under section 564(b)(1) of the Act, 21 U.S.C. 360bbb-3(b)(1), unless the authorization is terminated or revoked sooner. [facility] is certified under CLIA-88 as qualified to perform high complexity testing. Testing is performed in the [facility] laboratories located at [address] [place] [address]. Office Visit (Urology)on Follow-up visit Patient Discussion/Summary [...] Complaint NPV Vesicovaginal Fistula History of Present Thxjgnf83-cfmo-epl had a vaginal delivery of 8 pound 9 ounce girl 1 year ago May 05. Her labor lasted more than 24 hours she ended up with forcep assisted the vaginal delivery and 1/4 degree laceration. She lost a lot of blood 3 days later her laceration repair failed she saw Dr. Yemi Baez in [place] and had a revision 7 days after delivery. Unfortunately she has continued to have stool in the vagina ended up with an abscess and C. difficile. She later had a second revision with Dr. Velazquez at [place] which also failed per the patient and [...] negative for complaint. Vitals Vital Signs Recorded: [id number] 02:25PM Qvqigiwgavz41 F Heart Rate80 Mgtkgtxn978 Rwrfdcjux05 Height5 ft 4 in Jusnos327 lb BMI Tirrehnraf28.49 kg/m2 BSA Calculated2.2 Tobacco Useb) No Physical [...] May 01 2022 3:07PM EST (Author) Normal [employer] Tobacco Screening.on 022 Tobacco use status CP b) No UF-Fdlnftl-K david [employer] Work Phone: CBC W Auto Differential pane l (Bld)on 04-24-2022 Abs Immature Gran 0.03 k/uL <0.10 k/uL [facility] Basophils (Bld) [#/Vol] 10*3/uL <0.11 k/uL [facility] Basophils/100 WBC (Bld) 0.3 % [facility] Differential cell count method Nom (Bld) Auto [facility] Eosinophils (Bld) [#/Vol] 0.08 10*3/uL <0.46 k/uL [facility] Eosinophils/100 WBC (Bld) 1.1 % [facility] Erythrocyte distribution width (RBC) [Ratio] 13.9 % 11.5 - 15.0 % [facility] Hematocrit (Bld) [Volume fraction] 37.8 % 36.0 - 46.0 % [facility] Hemoglobin (Bld) [Mass/Vol] 11.6 g/dL 11.5 - 15.5 g/dL [facility] Immature Gran % 0.4 % [facility] Lymphocytes (Bld) [#/Vol] 1.89 10*3/uL 1.00 - 4.00 k/uL [facility] Lymphocytes/100 WBC (Bld) 25.2 % [facility] MCH (RBC) [Entitic mass] 25.1 pg Low 26.0 - 34.0 pg [facility] MCHC (RBC) [Mass/Vol] 30.7 g/dL 30.5 - 36.0 g/dL [facility] MCV (RBC) [Entitic vol] 81.8 fL 80.0 - 100.0 fL [facility] Monocytes (Bld) [#/Vol] 0.47 10*3/uL <0.87 k/uL [facility] Monocytes/100 WBC (Bld) 6.3 % [facility] Neutrophils (Bld) [#/Vol] 5.00 10*3/uL 1.45 - 7.50 k/uL [facility] Neutrophils/100 WBC (Bld) 66.7 % [facility] Nucleated RBC (Bld) [#/Vol] 10*3/uL <0.01 k/uL [facility] Nucleated RBC/100 WBC (Bld) [Ratio] 0.0 /100 WBC [facility] Platelet mean volume (Bld) [Entitic vol] 8.7 fL Low 9.0 - 12.7 fL [facility] Platelets (Bld) [#/Vol] 331 10*3/uL 150 - 400 k/uL [facility] RBC (Bld) [#/Vol] 4.62 10*6/uL 3.90 - 5.2 0 m/uL [facility] WBC (Bld) [#/Vol] 7.49 10*3/uL 3.70 - 11. 00 k/uL [facility] MRI PELVIS UTERINE/OVARIANon 04-03-2022 MRI PELVIS [...] 04/03/2022 1:45:13 PM Ordering Provider: DAY Aguila [facility] ([place]) .Auto Diffon 02-14-2022 Basophil, Absolute 0.00 10 3/mcL Normal 0.00-0.27 Counts include 234 beds at the [facility] ([place]) Comment on above: Performed By: #### C BC, ADIFF, CMP, PHOS, MG, GFR, ANEU #### [address] [address] Basophils/100 WBC (Bld) 0.2 % Normal 0.0-2.5 [facility] ([place]) Comment on above: Performed By: #### C BC, ADIFF, CMP, PHOS, MG, GFR, ANEU #### [address] [address] Eosinophil, Absolute 0.10 10 3/mcL Normal 0.00-0.65 A [facility] ([place]) Comment on above: Performed By: #### C BC, ADIFF, CMP, PHOS, MG, GFR, ANEU #### [address] [address] Eosinophils/100 WBC (Bld) 1.2 % Normal 0.0-6.0 [facility] ([place]) Comment on above: Performed By: #### C BC, ADIFF, CMP, PHOS, MG, GFR, ANEU #### [address] [address] Lymphocyte, Absolute 1.20 10 3/mcL Normal 0.90-4.32 A [facility] ([place]) Comment on above: Performed By: #### C BC, ADIFF, CMP, PHOS, MG, GFR, ANEU #### [address] [address] Lymphocytes/100 WBC (Bld) 16.9 % Low 20.0-40.0 [facility] ([place]) Comment on above: Performed By: #### C BC, ADIFF, CMP, PHOS, MG, GFR, ANEU #### [address] [address] Monocyte, Absolute 0.60 10 3/mcL Normal 0.09-1.40 Counts include 234 beds at the [facility] ([place]) Comment on above: Performed By: #### C BC, ADIFF, CMP, PHOS, MG, GFR, ANEU #### [address] [address] Monocytes/100 WBC (Bld) 7.6 % Normal 2.0-13.0 [facility] ([place]) Comment on above: Performed By: #### C BC, ADIFF, CMP, PHOS, MG, GFR, ANEU #### [address] [address] Neutrophils/100 WBC (Bld) 74.1 % Normal 50.0-75.0 [facility] ([place]) Comment on above: Performed By: #### C BC, ADIFF, CMP, PHOS, MG, GFR, ANEU #### [address] [address] .GFRon 02-14-2022 GFR Non- >60 Normal [facility] ([place]) Comment on above: Result Comment: GFR Population [...] ADIFF, CMP, PHOS, MG, GFR, ANEU #### [address] [address] GFR >60 Normal [facility] ([place]) Comment on above: Result Comment: GFR Population [...] ADIFF, CMP, PHOS, MG, GFR, ANEU #### [address] [address] .NEUABSon 02-14-2022 Neutrophil, Absolute 5.50 10 3/mcL Normal 2.25-8.10 A [facility] ([place]) Comment on above: Performed By: #### C BC, ADIFF, CMP, PHOS, MG, GFR, ANEU #### [address] [address] CBCon 02-14-2022 Erythrocyte distribution width (RBC) [Ratio] 16.0 % High 11.5-15.5 [facility] ([place]) Comment on above: Performed By: #### C BC, ADIFF, CMP, PHOS, MG, GFR, ANEU #### [address] [address] Hematocrit (Bld) [Volume fraction] 32.9 % Low 34.0-46.0 [facility] ([place]) Comment on above: Performed By: #### C BC, ADIFF, CMP, PHOS, MG, GFR, ANEU #### [address] [address] Hgb 10.9 G/dL Low 12.0-16.0 [facility] ([place]) Comment on above: Performed By: #### C BC, ADIFF, CMP, PHOS, MG, GFR, ANEU #### [place] [address] MCH (RBC) [Entitic mass] 26.2 pg Low 27.0-33.0 [facility] ([place]) Comment on above: Performed By: #### C BC, ADIFF, CMP, PHOS, MG, GFR, ANEU #### [place] [address] MCHC 33.1 G/dL Normal 32.0-36.0 [facility] ([place]) Comment on above: Performed By: #### C BC, ADIFF, CMP, PHOS, MG, GFR, ANEU #### [place] [address] MCV (RBC) [Entitic vol] 79.2 fL Low 80.0-99.0 [facility] ([place]) Comment on above: Performed By: #### C BC, ADIFF, CMP, PHOS, MG, GFR, ANEU #### [place] [address] Platelet 276 10 3/mcL Normal 150-450 [facility] ([place]) Comment on above: Performed By: #### C BC, ADIFF, CMP, PHOS, MG, GFR, ANEU #### [place] [address] Platelet mean volume (Bld) [Entitic vol] 6.9 fL Normal 6.6-10.5 [facility] ([place]) Comment on above: Performed By: #### C BC, ADIFF, CMP, PHOS, MG, GFR, ANEU #### [place] [address] RBC 4.15 10 6/mcL Normal 4.10-5.30 [facility] ([place]) Comment on above: Performed By: #### C BC, ADIFF, CMP, PHOS, MG, GFR, ANEU #### [place] [address] WBC 7.40 10 3/mcL Normal 4.50-10.80 [facility] ([place]) Comment on above: Performed By: #### C BC, ADIFF, CMP, PHOS, MG, GFR, ANEU #### [place] [id number] CMPon 02-14-2022 Albumin Level 2.7 G/dL Low 3.2-4.8 [facility] ([place]) Comment on above: Performed By: #### C BC, ADIFF, CMP, PHOS, MG, GFR, ANEU #### [place] [address] Albumin/Globulin [Mass ratio] 1.0 {ratio} Normal 0.9-1.6 [facility] ([place]) Comment on above: Performed By: #### C BC, ADIFF, CMP, PHOS, MG, GFR, ANEU #### [place] [address] ALP [Catalytic activity/Vol] 75 U/L Normal 38-126 [facility] ([place]) Comment on above: Performed By: #### C BC, ADIFF, CMP, PHOS, MG, GFR, ANEU #### [place] [address] ALT [Catalytic activity/Vol] 17 U/L Normal 10-49 [facility] ([place]) Comment on above: Performed By: #### C BC, ADIFF, CMP, PHOS, MG, GFR, ANEU #### [place] [id number] AST [Catalytic activity/Vol] 15 U/L Normal 8-34 [facility] ([place]) Comment on above: Performed By: #### C BC, ADIFF, CMP, PHOS, MG, GFR, ANEU #### [place] [id number] Bili Total 1.10 mg/dL Normal 0.20-1.20 [facility] ([place]) Comment on above: Result Comment: Use of this assay is not recommended for patients undergoing treatment with eltrombopag due to the potential for falsely elevated results. Performed By: #### C BC, ADIFF, CMP, PHOS, MG, GFR, ANEU #### [address] [address] BUN/Creatinine Ratio 14.3 ratio Normal 10.0-22.0 [facility] ([place]) Comment on above: Performed By: #### C BC, ADIFF, CMP, PHOS, MG, GFR, ANEU #### [address] [address] Calcium [Mass/Vol] 8.4 mg/dL Low 8.7-10.4 [facility] ([place]) Comment on above: Result Comment: No te - New Reference Range in effect 20 Performed By: #### C BC, ADIFF, CMP, PHOS, MG, GFR, ANEU #### [address] [address] Chloride [Moles/Vol] 105 mmol/L Normal 98-110 [facility] ([place]) Comment on above: Performed By: #### C BC, ADIFF, CMP, PHOS, MG, GFR, ANEU #### [address] [address] CO2 [Moles/Vol] 26 mmol/L Normal 22-32 [facility] ([place]) Comment on above: Performed By: #### C BC, ADIFF, CMP, PHOS, MG, GFR, ANEU #### [address] [address] Creatinine [Mass/Vol] 0.49 mg/dL Low 0.50-1.20 Counts include 234 beds at the [facility] ([place]) Comment on above: Performed By: #### C BC, ADIFF, CMP, PHOS, MG, GFR, ANEU #### [address] [address] Electrolyte Balance 6.0 mEq/L Normal 4.0-15.0 [facility] ([place]) Comment on above: Performed By: #### C BC, ADIFF, CMP, PHOS, MG, GFR, ANEU #### [address] [address] Globulin 2.8 G/dL Normal 1.5-3.8 [facility] ([place]) Comment on above: Performed By: #### C BC, ADIFF, CMP, PHOS, MG, GFR, ANEU #### [address] [address] Glucose [Mass/Vol] 119 mg/dL High 70-110 [facility] ([place]) Comment on above: Performed By: #### C BC, ADIFF, CMP, PHOS, MG, GFR, ANEU #### [address] [address] Potassium [Moles/Vol] 3.7 mmol/L Normal 3.5-5.0 Counts include 234 beds at the [facility] ([place]) Comment on above: Performed By: #### C BC, ADIFF, CMP, PHOS, MG, GFR, ANEU #### [address] [address] Sodium [Moles/Vol] 137 mmol/L Normal 136-145 [facility] ([place]) Comment on above: Performed By: #### C BC, ADIFF, CMP, PHOS, MG, GFR, ANEU #### [place] [id number] Total Protein 5.5 G/dL Low 5.7-8.2 [facility] ([place]) Comment on above: Result Comment: No te - New Reference Range in effect 20 Performed By: #### C BC, ADIFF, CMP, PHOS, MG, GFR, ANEU #### [address] [address] Urea nitrogen [Mass/Vol] 7.0 mg/dL Low 8.0-22.0 [facility] ([place]) Comment on above: Performed By: #### C BC, ADIFF, CMP, PHOS, MG, GFR, ANEU #### [address] [address] LABORATORYOrdered By: SYSTEM SYSTEM on 02-14-2022 Albumin [...] - 3.8 G/dL ADM SS Glucose [Mass/Vol] 119 mg/dL Invalid [...] 4.50 - 10.80 10^3/mcL Remisol SS MGon 02-14-2022 Magnesium [Mass/Vol] 1.5 mg/dL Low 1.6-2.4 [facility] ([place]) Comment on above: Performed By: #### C BC, ADIFF, CMP, PHOS, MG, GFR, ANEU #### [address] [address] PHOSon 02-14-2022 Phosphate [Mass/Vol] 2.4 mg/dL Normal 2.4-5.1 [facility] ([place]) Comment on above: Result Comment: No te - New Reference Range in effect 20 Performed By: #### C BC, ADIFF, CMP, PHOS, MG, GFR, ANEU #### [address] [address] .Auto Diffon 02-13-2022 Basophil, Absolute 0.00 10 3/mcL Normal 0.00-0.27 Counts include 234 beds at the [facility] ([place]) Comment on above: Performed By: #### C BC, ADIFF, CMP, PHOS, MG, GFR, ANEU #### [address] [address] Basophils/100 WBC (Bld) 0.2 % Normal 0.0-2.5 [facility] ([place]) Comment on above: Performed By: #### C BC, ADIFF, CMP, PHOS, MG, GFR, ANEU #### [address] [address] Eosinophil, Absolute 0.00 10 3/mcL Normal 0.00-0.65 A [facility] ([place]) Comment on above: Performed By: #### C BC, ADIFF, CMP, PHOS, MG, GFR, ANEU #### [address] [address] Eosinophils/100 WBC (Bld) 0.1 % Normal 0.0-6.0 [facility] ([place]) Comment on above: Performed By: #### C BC, ADIFF, CMP, PHOS, MG, GFR, ANEU #### [address] [address] Lymphocyte, Absolute 1.40 10 3/mcL Normal 0.90-4.32 A [facility] ([place]) Comment on above: Performed By: #### C BC, ADIFF, CMP, PHOS, MG, GFR, ANEU #### [address] [address] Lymphocytes/100 WBC (Bld) 14.8 % Low 20.0-40.0 [facility] ([place]) Comment on above: Performed By: #### C BC, ADIFF, CMP, PHOS, MG, GFR, ANEU #### [address] [address] Monocyte, Absolute 0.80 10 3/mcL Normal 0.09-1.40 Counts include 234 beds at the [facility] ([place]) Comment on above: Performed By: #### C BC, ADIFF, CMP, PHOS, MG, GFR, ANEU #### [address] [address] Monocytes/100 WBC (Bld) 8.5 % Normal 2.0-13.0 [facility] ([place]) Comment on above: Performed By: #### C BC, ADIFF, CMP, PHOS, MG, GFR, ANEU #### [address] [address] Neutrophils/100 WBC (Bld) 76.4 % High 50.0-75.0 [facility] ([place]) Comment on above: Performed By: #### C BC, ADIFF, CMP, PHOS, MG, GFR, ANEU #### [address] [address] .GFRon 02-13-2022 GFR >60 Normal [facility] ([place]) Comment on above: Result Comment: GFR Population [...] ADIFF, CMP, PHOS, MG, GFR, ANEU #### [place] [address] GFR Non- >60 Normal [facility] ([place]) Comment on above: Result Comment: GFR Population [...] ADIFF, CMP, PHOS, MG, GFR, ANEU #### [address] [address] .NEUABSon 02-13-2022 Neutrophil, Absolute 7.20 10 3/mcL Normal 2.25-8.10 A [facility] ([place]) Comment on above: Performed By: #### C BC, ADIFF, CMP, PHOS, MG, GFR, ANEU #### [address] [address] CBCon 02-13-2022 Erythrocyte distribution width (RBC) [Ratio] 16.4 % High 11.5-15.5 [facility] ([place]) Comment on above: Performed By: #### C BC, ADIFF, CMP, PHOS, MG, GFR, ANEU #### [place] [address] Hematocrit (Bld) [Volume fraction] 34.7 % Normal 34.0-46.0 [facility] ([place]) Comment on above: Performed By: #### C BC, ADIFF, CMP, PHOS, MG, GFR, ANEU #### [place] [address] Hgb 11.4 G/dL Low 12.0-16.0 [facility] ([place]) Comment on above: Performed By: #### C BC, ADIFF, CMP, PHOS, MG, GFR, ANEU #### [place] [address] MCH (RBC) [Entitic mass] 26.5 pg Low 27.0-33.0 [facility] ([place]) Comment on above: Performed By: #### C BC, ADIFF, CMP, PHOS, MG, GFR, ANEU #### [place] [id number] MCHC 33.0 G/dL Normal 32.0-36.0 [facility] ([place]) Comment on above: Performed By: #### C BC, ADIFF, CMP, PHOS, MG, GFR, ANEU #### [place] [id number] MCV (RBC) [Entitic vol] 80.3 fL Normal 80.0-99.0 [facility] ([place]) Comment on above: Performed By: #### C BC, ADIFF, CMP, PHOS, MG, GFR, ANEU #### [place] [id number] Platelet 281 10 3/mcL Normal 150-450 [facility] ([place]) Comment on above: Performed By: #### C BC, ADIFF, CMP, PHOS, MG, GFR, ANEU #### [place] [address] Platelet mean volume (Bld) [Entitic vol] 6.8 fL Normal 6.6-10.5 [facility] ([place]) Comment on above: Performed By: #### C BC, ADIFF, CMP, PHOS, MG, GFR, ANEU #### [place] [address] RBC 4.31 10 6/mcL Normal 4.10-5.30 [facility] ([place]) Comment on above: Performed By: #### C BC, ADIFF, CMP, PHOS, MG, GFR, ANEU #### [place] [address] WBC 9.40 10 3/mcL Normal 4.50-10.80 [facility] ([place]) Comment on above: Performed By: #### C BC, ADIFF, CMP, PHOS, MG, GFR, ANEU #### [place] [address] CMPon 02-13-2022 Albumin Level 3.2 G/dL Normal 3.2-4.8 [facility] ([place]) Comment on above: Performed By: #### C BC, ADIFF, CMP, PHOS, MG, GFR, ANEU #### [place] [address] Albumin/Globulin [Mass ratio] 1.1 {ratio} Normal 0.9-1.6 [facility] ([place]) Comment on above: Performed By: #### C BC, ADIFF, CMP, PHOS, MG, GFR, ANEU #### [place] [address] ALP [Catalytic activity/Vol] 84 U/L Normal 38-126 [facility] ([place]) Comment on above: Performed By: #### C BC, ADIFF, CMP, PHOS, MG, GFR, ANEU #### [place] [address] ALT [Catalytic activity/Vol] 20 U/L Normal 10-49 [facility] ([place]) Comment on above: Performed By: #### C BC, ADIFF, CMP, PHOS, MG, GFR, ANEU #### [address] [address] AST [Catalytic activity/Vol] 11 U/L Normal 8-34 [facility] ([place]) Comment on above: Performed By: #### C BC, ADIFF, CMP, PHOS, MG, GFR, ANEU #### [address] [address] Bili Total 1.50 mg/dL High 0.20-1.20 [facility] ([place]) Comment on above: Result Comment: Use of this assay is not recommended for patients undergoing treatment with eltrombopag due to the potential for falsely elevated results. Performed By: #### C BC, ADIFF, CMP, PHOS, MG, GFR, ANEU #### [place] [id number] Calcium [Mass/Vol] 8.5 mg/dL Low 8.7-10.4 [facility] ([place]) Comment on above: Result Comment: No te - New Reference Range in effect 20 Performed By: #### C BC, ADIFF, CMP, PHOS, MG, GFR, ANEU #### [address] [address] Chloride [Moles/Vol] 104 mmol/L Normal 98-110 [facility] ([place]) Comment on above: Performed By: #### C BC, ADIFF, CMP, PHOS, MG, GFR, ANEU #### [address] [address] CO2 [Moles/Vol] 24 mmol/L Normal 22-32 [facility] ([place]) Comment on above: Performed By: #### C BC, ADIFF, CMP, PHOS, MG, GFR, ANEU #### [address] [address] Creatinine [Mass/Vol] 0.45 mg/dL Low 0.50-1.20 Counts include 234 beds at the [facility] ([place]) Comment on above: Performed By: #### C BC, ADIFF, CMP, PHOS, MG, GFR, ANEU #### [place] [id number] Electrolyte Balance 9.0 mEq/L Normal 4.0-15.0 [facility] ([place]) Comment on above: Performed By: #### C BC, ADIFF, CMP, PHOS, MG, GFR, ANEU #### [address] [address] Globulin 2.8 G/dL Normal 1.5-3.8 [facility] ([place]) Comment on above: Performed By: #### C BC, ADIFF, CMP, PHOS, MG, GFR, ANEU #### [place] [id number] Glucose [Mass/Vol] 93 mg/dL Normal 70-110 [facility] ([place]) Comment on above: Performed By: #### C BC, ADIFF, CMP, PHOS, MG, GFR, ANEU #### [place] [id number] Potassium [Moles/Vol] 3.6 mmol/L Normal 3.5-5.0 Counts include 234 beds at the [facility] ([place]) Comment on above: Performed By: #### C BC, ADIFF, CMP, PHOS, MG, GFR, ANEU #### [place] [id number] Sodium [Moles/Vol] 137 mmol/L Normal 136-145 [facility] ([place]) Comment on above: Performed By: #### C BC, ADIFF, CMP, PHOS, MG, GFR, ANEU #### [place] [id number] Total Protein 6.0 G/dL Normal 5.7-8.2 [facility] ([place]) Comment on above: Result Comment: No te - New Reference Range in effect 20 Performed By: #### C BC, ADIFF, CMP, PHOS, MG, GFR, ANEU #### [place] [id number] Urea nitrogen [Mass/Vol] mg/dL Low 8.0-22.0 [facility] ([place]) Comment on above: Performed By: #### C BC, ADIFF, CMP, PHOS, MG, GFR, ANEU #### [address] [address] Urea nitrogen/Creatinine [Mass ratio] mg/mg Normal 10.0-22.0 [facility] ([place]) Comment on above: Performed By: #### C BC, ADIFF, CMP, PHOS, MG, GFR, ANEU #### [address] [address] LABORATORYOrdered By: SYSTEM SYSTEM on 02-13-2022 Albumin [...] - 3.8 G/dL ADM SS Glucose [Mass/Vol] 93 mg/dL Invalid [...] - 10.80 10^3/mcL AH Remisol SS MGon 02-13-2022 Magnesium [Mass/Vol] 1.6 mg/dL Normal 1.6-2.4 [facility] ([place]) Comment on above: Performed By: #### C BC, ADIFF, CMP, PHOS, MG, GFR, ANEU #### [address] [address] PHOSon 02-13-2022 Phosphate [Mass/Vol] 3.1 mg/dL Normal 2.4-5.1 [facility] ([place] Comment on above: Result Comment: No te - New Reference Range in effect 20 Performed By: #### C BC, ADIFF, CMP, PHOS, MG, GFR, ANEU #### [address] [address] .GFRon 02-12-2022 GFR >60 Normal [facility] ([place] Comment on above: Result Comment: GFR Population [...] ADIFF, CMP, PHOS, MG, GFR, ANEU #### [place] [address] GFR Non- >60 Normal [facility] ([place]) Comment on above: Result Comment: GFR Population [...] ADIFF, CMP, PHOS, MG, GFR, ANEU #### [address] [address] .Manual Diffon 02-12-2022 Basophil %, Manual 0.0 % Normal 0.0-2.5 [facility] ([place]) Comment on above: Performed By: #### C BC, ADIFF, CMP, PHOS, MG, GFR, ANEU #### [address] [address] Basophil, Abs Manual 0.00 10 3/mcL Normal 0.00-0.27 A [facility] ([place]) Comment on above: Performed By: #### C BC, ADIFF, CMP, PHOS, MG, GFR, ANEU #### [place] [address] Cells Counted 100 Normal [facility] ([place]) Comment on above: Performed By: #### C BC, ADIFF, CMP, PHOS, MG, GFR, ANEU #### [place] [address] Eosinophil %, Manual 0.0 % Normal 0.0-6.0 [facility] ([place]) Comment on above: Performed By: #### C BC, ADIFF, CMP, PHOS, MG, GFR, ANEU #### [place] [id number] Eosinophil, Abs Manual 0.00 10 3/mcL Normal 0.00-0.65 [facility] ([place]) Comment on above: Performed By: #### C BC, ADIFF, CMP, PHOS, MG, GFR, ANEU #### [place] [address] Lymphocyte %, Manual 23.0 % Normal 20.0-40.0 [facility] ([place] Comment on above: Performed By: #### C BC, ADIFF, CMP, PHOS, MG, GFR, ANEU #### [place] [id number] Lymphocyte, Abs Manual 1.86 10 3/mcL Normal 0.90-4.32 [facility] ([place]) Comment on above: Performed By: #### C BC, ADIFF, CMP, PHOS, MG, GFR, ANEU #### [place] [address] Monocyte %, Manual 6.0 % Normal 2.0-13.0 [facility] ([place]) Comment on above: Performed By: #### C BC, ADIFF, CMP, PHOS, MG, GFR, ANEU #### [place] [address] Monocyte, Abs Manual 0.49 10 3/mcL Normal 0.09-1.40 A [facility] ([place]) Comment on above: Performed By: #### C BC, ADIFF, CMP, PHOS, MG, GFR, ANEU #### [place] [address] Neutrophil %, Manual 71.0 % Normal 50.0-75.0 [facility] ([place] Comment on above: Performed By: #### C BC, ADIFF, CMP, PHOS, MG, GFR, ANEU #### [place] [address] Neutrophil, Abs Manual 5.75 10 3/mcL Normal 2.25-8.10 [facility] ([place]) Comment on above: Performed By: #### C BC, ADIFF, CMP, PHOS, MG, GFR, ANEU #### [place] [address] .Morphon 02-12-2022 Anisocytosis Ql (Bld) Slight Normal Counts include 234 beds at the [facility] ([place]) Comment on above: Performed By: #### C BC, ADIFF, CMP, PHOS, MG, GFR, ANEU #### [place] [address] Ovalocytes Few Normal [facility] ([place]) Comment on above: Performed By: #### C BC, ADIFF, CMP, PHOS, MG, GFR, ANEU #### [place] [address] Platelet Estimate Normal Normal [facility] ([place]) Comment on above: Performed By: #### C BC, ADIFF, CMP, PHOS, MG, GFR, ANEU #### [place] [address] CBCon 02-12-2022 Erythrocyte distribution width (RBC) [Ratio] 16.6 % High 11.5-15.5 [facility] ([place]) Comment on above: Performed By: #### M ORPH, CMP, CBC, MG, DIFF, PHOS, GFR #### [place] [address] Hematocrit (Bld) [Volume fraction] 36.2 % Normal 34.0-46.0 [facility] ([place]) Comment on above: Performed By: #### M ORPH, CMP, CBC, MG, DIFF, PHOS, GFR #### [place] [address] Hgb 11.8 G/dL Low 12.0-16.0 [facility] ([place]) Comment on above: Performed By: #### M ORPH, CMP, CBC, MG, DIFF, PHOS, GFR #### [place] [address] MCH (RBC) [Entitic mass] 26.0 pg Low 27.0-33.0 [facility] ([place]) Comment on above: Performed By: #### M ORPH, CMP, CBC, MG, DIFF, PHOS, GFR #### [place] [address] MCHC 32.5 G/dL Normal 32.0-36.0 [facility] ([place]) Comment on above: Performed By: #### M ORPH, CMP, CBC, MG, DIFF, PHOS, GFR #### [place] [address] MCV (RBC) [Entitic vol] 80.0 fL Normal 80.0-99.0 [facility] ([place]) Comment on above: Performed By: #### M ORPH, CMP, CBC, MG, DIFF, PHOS, GFR #### [place] [id number] Platelet 311 10 3/mcL Normal 150-450 [facility] ([place]) Comment on above: Performed By: #### M ORPH, CMP, CBC, MG, DIFF, PHOS, GFR #### [place] [address] Platelet mean volume (Bld) [Entitic vol] 7.6 fL Normal 6.6-10.5 [facility] ([place]) Comment on above: Performed By: #### M ORPH, CMP, CBC, MG, DIFF, PHOS, GFR #### [place] [id number] RBC 4.53 10 6/mcL Normal 4.10-5.30 [facility] ([place]) Comment on above: Performed By: #### M ORPH, CMP, CBC, MG, DIFF, PHOS, GFR #### [place] [address] WBC 8.10 10 3/mcL Normal 4.50-10.80 [facility] ([place]) Comment on above: Performed By: #### M ORPH, CMP, CBC, MG, DIFF, PHOS, GFR #### [place] [address] CMPon 02-12-2022 Albumin Level 3.3 G/dL Normal 3.2-4.8 [facility] ([place]) Comment on above: Performed By: #### C BC, ADIFF, CMP, PHOS, MG, GFR, ANEU #### [place] [address] Albumin/Globulin [Mass ratio] 1.2 {ratio} Normal 0.9-1.6 [facility] ([place]) Comment on above: Performed By: #### C BC, ADIFF, CMP, PHOS, MG, GFR, ANEU #### [place] [address] ALP [Catalytic activity/Vol] 81 U/L Normal 38-126 [facility] ([place]) Comment on above: Performed By: #### C BC, ADIFF, CMP, PHOS, MG, GFR, ANEU #### [place] [address] ALT [Catalytic activity/Vol] 26 U/L Normal 10-49 [facility] ([place]) Comment on above: Performed By: #### C BC, ADIFF, CMP, PHOS, MG, GFR, ANEU #### [place] [address] AST [Catalytic activity/Vol] 20 U/L Normal 8-34 [facility] ([place]) Comment on above: Performed By: #### C BC, ADIFF, CMP, PHOS, MG, GFR, ANEU #### [address] [address] Bili Total 1.60 mg/dL High 0.20-1.20 [facility] ([place]) Comment on above: Result Comment: Use of this assay is not recommended for patients undergoing treatment with eltrombopag due to the potential for falsely elevated results. Performed By: #### C BC, ADIFF, CMP, PHOS, MG, GFR, ANEU #### [address] [address] Calcium [Mass/Vol] 7.8 mg/dL Low 8.7-10.4 [facility] ([place]) Comment on above: Result Comment: No te - New Reference Range in effect 20 Performed By: #### C BC, ADIFF, CMP, PHOS, MG, GFR, ANEU #### [address] [address] Chloride [Moles/Vol] 108 mmol/L Normal 98-110 [facility] ([place]) Comment on above: Performed By: #### C BC, ADIFF, CMP, PHOS, MG, GFR, ANEU #### [address] [address] CO2 [Moles/Vol] 26 mmol/L Normal 22-32 [facility] ([place]) Comment on above: Performed By: #### C BC, ADIFF, CMP, PHOS, MG, GFR, ANEU #### [address] [address] Creatinine [Mass/Vol] 0.52 mg/dL Normal 0.50-1.20 Counts include 234 beds at the [facility] ([place]) Comment on above: Performed By: #### C BC, ADIFF, CMP, PHOS, MG, GFR, ANEU #### [address] [address] Electrolyte Balance 6.0 mEq/L Normal 4.0-15.0 [facility] ([place]) Comment on above: Performed By: #### C BC, ADIFF, CMP, PHOS, MG, GFR, ANEU #### [address] [address] Globulin 2.8 G/dL Normal 1.5-3.8 [facility] ([place]) Comment on above: Performed By: #### C BC, ADIFF, CMP, PHOS, MG, GFR, ANEU #### [address] [address] Glucose [Mass/Vol] 98 mg/dL Normal 70-110 [facility] ([place]) Comment on above: Performed By: #### C BC, ADIFF, CMP, PHOS, MG, GFR, ANEU #### [address] [address] Potassium [Moles/Vol] 3.6 mmol/L Normal 3.5-5.0 Counts include 234 beds at the [facility] ([place]) Comment on above: Result Comment: Spec imen slightly hemolyzed. Performed By: #### C BC, ADIFF, CMP, PHOS, MG, GFR, ANEU #### [address] [address] Sodium [Moles/Vol] 140 mmol/L Normal 136-145 [facility] ([place]) Comment on above: Performed By: #### C BC, ADIFF, CMP, PHOS, MG, GFR, ANEU #### [address] [address] Total Protein 6.1 G/dL Normal 5.7-8.2 [facility] ([place]) Comment on above: Result Comment: No te - New Reference Range in effect 20 Performed By: #### C BC, ADIFF, CMP, PHOS, MG, GFR, ANEU #### [address] [address] Urea nitrogen [Mass/Vol] mg/dL Low 8.0-22.0 [facility] ([place]) Comment on above: Performed By: #### C BC, ADIFF, CMP, PHOS, MG, GFR, ANEU #### [address] [address] Urea nitrogen/Creatinine [Mass ratio] mg/mg Low 10.0-22.0 [facility] ([place]) Comment on above: Performed By: #### C BC, ADIFF, CMP, PHOS, MG, GFR, ANEU #### [facility] [address] [place] [id number] Final Surgical Pathology Rep myra 02-12-2022 Final Surgical Pathology Report . Pathology Reports Accession: Collected Date/Time: Received Date/Time: Pathologist: [id number] 02/10/2022 19:01 EDT 02/11/2022 07:18 EDT DO [...] Signed by Pathology Report verified by [facility] Electronically signed by JOSTIN SHREMAN DO Sign out Date: 02/12/2022 15:42 Performing Lab: [facility], [address] [place] [id number] [place] [address] ([place]) LABORATORYOrdered By: SYSTEM SYSTEM on 02-12-2022 Albumin [...] mg/dL ADM SS Hematocrit (Bld) [Volume fraction] 36.2 [...] - 40.0 % Remisol SS Magnesium [Mass/Vol] 1.5 mg/dL Invalid [...] - 10.80 10^3/mcL AH Remisol SS MGon 02-12-2022 Magnesium [Mass/Vol] 1.5 mg/dL Low 1.6-2.4 [facility] ([place]) Comment on above: Performed By: #### M ORPH, CMP, CBC, MG, DIFF, PHOS, GFR #### [place] [address] PHOSon 02-12-2022 Phosphate [Mass/Vol] 2.2 mg/dL Low 2.4-5.1 [facility] ([place]) Comment on above: Result Comment: No te - New Reference Range in effect 20 Performed By: #### M ORPH, CMP, CBC, MG, DIFF, PHOS, GFR #### [address] [address] .Auto Diffon 02-11-2022 Basophil, Absolute 0.00 10 3/mcL Normal 0.00-0.27 Counts include 234 beds at the [facility] ([place]) Comment on above: Performed By: #### C BC, ADIFF, CMP, PHOS, MG, GFR, ANEU #### [address] [address] Basophils/100 WBC (Bld) 0.2 % Normal 0.0-2.5 [facility] ([place]) Comment on above: Performed By: #### C BC, ADIFF, CMP, PHOS, MG, GFR, ANEU #### [address] [address] Eosinophil, Absolute 0.00 10 3/mcL Normal 0.00-0.65 A [facility]ly [facility] ([place]) Comment on above: Performed By: #### C BC, ADIFF, CMP, PHOS, MG, GFR, ANEU #### [address] [address] Eosinophils/100 WBC (Bld) 0.1 % Normal 0.0-6.0 [facility] ([place]) Comment on above: Performed By: #### C BC, ADIFF, CMP, PHOS, MG, GFR, ANEU #### [address] [address] Lymphocyte, Absolute 0.70 10 3/mcL Low 0.90-4.32 A [facility] ([place]) Comment on above: Performed By: #### C BC, ADIFF, CMP, PHOS, MG, GFR, ANEU #### [address] [address] Lymphocytes/100 WBC (Bld) 5.9 % Low 20.0-40.0 [facility] ([place]) Comment on above: Performed By: #### C BC, ADIFF, CMP, PHOS, MG, GFR, ANEU #### [address] [address] Monocyte, Absolute 0.30 10 3/mcL Normal 0.09-1.40 Counts include 234 beds at the [facility] ([place]) Comment on above: Performed By: #### C BC, ADIFF, CMP, PHOS, MG, GFR, ANEU #### [address] [address] Monocytes/100 WBC (Bld) 2.6 % Normal 2.0-13.0 [facility] ([place]) Comment on above: Performed By: #### C BC, ADIFF, CMP, PHOS, MG, GFR, ANEU #### [address] [address] Neutrophils/100 WBC (Bld) 91.2 % High 50.0-75.0 [facility] ([place]) Comment on above: Performed By: #### C BC, ADIFF, CMP, PHOS, MG, GFR, ANEU #### [address] [address] .GFRon 02-11-2022 GFR >60 Normal [facility] ([place]) Comment on above: Result Comment: GFR Population [...] ADIFF, CMP, PHOS, MG, GFR, ANEU #### [address] [address] GFR Non- >60 Normal [facility] ([place]) Comment on above: Result Comment: GFR Population [...] ADIFF, CMP, PHOS, MG, GFR, ANEU #### [place] [address] .NEUABSon 02-11-2022 Neutrophil, Absolute 11.30 10 3/mcL High 2.25-8.10 [facility] ([place]) Comment on above: Performed By: #### C BC, ADIFF, CMP, PHOS, MG, GFR, ANEU #### [place] [address] CBCon 02-11-2022 Erythrocyte distribution width (RBC) [Ratio] 16.3 % High 11.5-15.5 [facility] ([place]) Comment on above: Performed By: #### C BC, ADIFF, CMP, PHOS, MG, GFR, ANEU #### [place] [address] Hematocrit (Bld) [Volume fraction] 39.3 % Normal 34.0-46.0 [facility] ([place]) Comment on above: Performed By: #### C BC, ADIFF, CMP, PHOS, MG, GFR, ANEU #### [place] [address] Hgb 12.8 G/dL Normal 12.0-16.0 [facility] ([place]) Comment on above: Performed By: #### C BC, ADIFF, CMP, PHOS, MG, GFR, ANEU #### [place] [address] MCH (RBC) [Entitic mass] 26.0 pg Low 27.0-33.0 [facility] ([place]) Comment on above: Performed By: #### C BC, ADIFF, CMP, PHOS, MG, GFR, ANEU #### [place] [address] MCHC 32.5 G/dL Normal 32.0-36.0 [facility] ([place]) Comment on above: Performed By: #### C BC, ADIFF, CMP, PHOS, MG, GFR, ANEU #### [place] [address] MCV (RBC) [Entitic vol] 80.0 fL Normal 80.0-99.0 [facility] ([place]) Comment on above: Performed By: #### C BC, ADIFF, CMP, PHOS, MG, GFR, ANEU #### [place] [address] Platelet 280 10 3/mcL Normal 150-450 [facility] ([place]) Comment on above: Performed By: #### C BC, ADIFF, CMP, PHOS, MG, GFR, ANEU #### [place] [address] Platelet mean volume (Bld) [Entitic vol] 6.8 fL Normal 6.6-10.5 [facility] ([place]) Comment on above: Performed By: #### C BC, ADIFF, CMP, PHOS, MG, GFR, ANEU #### [place] [address] RBC 4.91 10 6/mcL Normal 4.10-5.30 [facility] ([place]) Comment on above: Performed By: #### C BC, ADIFF, CMP, PHOS, MG, GFR, ANEU #### [place] [address] WBC 12.40 10 3/mcL High 4.50-10.80 [facility] ([place]) Comment on above: Performed By: #### C BC, ADIFF, CMP, PHOS, MG, GFR, ANEU #### [place] [address] CMPon 02-11-2022 Albumin Level 3.5 G/dL Normal 3.2-4.8 [facility] ([place]) Comment on above: Performed By: #### C BC, ADIFF, CMP, PHOS, MG, GFR, ANEU #### [address] [address] Albumin/Globulin [Mass ratio] 1.2 {ratio} Normal 0.9-1.6 [facility] ([place]) Comment on above: Performed By: #### C BC, ADIFF, CMP, PHOS, MG, GFR, ANEU #### [address] [address] ALP [Catalytic activity/Vol] 89 U/L Normal 38-126 [facility] ([place]) Comment on above: Performed By: #### C BC, ADIFF, CMP, PHOS, MG, GFR, ANEU #### [address] [address] ALT [Catalytic activity/Vol] 38 U/L Normal 10-49 [facility] ([place]) Comment on above: Performed By: #### C BC, ADIFF, CMP, PHOS, MG, GFR, ANEU #### [address] [address] AST [Catalytic activity/Vol] 24 U/L Normal 8-34 [facility] ([place]) Comment on above: Performed By: #### C BC, ADIFF, CMP, PHOS, MG, GFR, ANEU #### [address] [address] Bili Total 1.30 mg/dL High 0.20-1.20 [facility] ([place]) Comment on above: Result Comment: Use of this assay is not recommended for patients undergoing treatment with eltrombopag due to the potential for falsely elevated results. Performed By: #### C BC, ADIFF, CMP, PHOS, MG, GFR, ANEU #### [address] [address] BUN/Creatinine Ratio 17.9 ratio Normal 10.0-22.0 [facility] ([place] Comment on above: Performed By: #### C BC, ADIFF, CMP, PHOS, MG, GFR, ANEU #### [place] [id number] Calcium [Mass/Vol] 8.6 mg/dL Low 8.7-10.4 [facility] ([place]) Comment on above: Result Comment: No te - New Reference Range in effect 20 Performed By: #### C BC, ADIFF, CMP, PHOS, MG, GFR, ANEU #### [place] [id number] Chloride [Moles/Vol] 110 mmol/L Normal 98-110 [facility] ([place]) Comment on above: Performed By: #### C BC, ADIFF, CMP, PHOS, MG, GFR, ANEU #### [place] [id number] CO2 [Moles/Vol] 20 mmol/L Low 22-32 [facility] ([place]) Comment on above: Performed By: #### C BC, ADIFF, CMP, PHOS, MG, GFR, ANEU #### [place] [address] Creatinine [Mass/Vol] 0.39 mg/dL Low 0.50-1.20 Counts include 234 beds at the [facility] ([place]) Comment on above: Performed By: #### C BC, ADIFF, CMP, PHOS, MG, GFR, ANEU #### [place] [address] Electrolyte Balance 9.0 mEq/L Normal 4.0-15.0 [facility] ([place]) Comment on above: Performed By: #### C BC, ADIFF, CMP, PHOS, MG, GFR, ANEU #### [place] [address] Globulin 2.9 G/dL Normal 1.5-3.8 [facility] ([place]) Comment on above: Performed By: #### C BC, ADIFF, CMP, PHOS, MG, GFR, ANEU #### [place] [id number] Glucose [Mass/Vol] 136 mg/dL High 70-110 [facility] ([place]) Comment on above: Performed By: #### C BC, ADIFF, CMP, PHOS, MG, GFR, ANEU #### [address] [address] Potassium [Moles/Vol] 5.1 mmol/L High 3.5-5.0 Counts include 234 beds at the [facility] ([place]) Comment on above: Performed By: #### C BC, ADIFF, CMP, PHOS, MG, GFR, ANEU #### [address] [address] Sodium [Moles/Vol] 139 mmol/L Normal 136-145 [facility] ([place]) Comment on above: Performed By: #### C BC, ADIFF, CMP, PHOS, MG, GFR, ANEU #### [address] [address] Total Protein 6.4 G/dL Normal 5.7-8.2 [facility] ([place]) Comment on above: Result Comment: No te - New Reference Range in effect 20 Performed By: #### C BC, ADIFF, CMP, PHOS, MG, GFR, ANEU #### [address] [address] Urea nitrogen [Mass/Vol] 7.0 mg/dL Low 8.0-22.0 [facility] ([place]) Comment on above: Performed By: #### C BC, ADIFF, CMP, PHOS, MG, GFR, ANEU #### [address] [address] LABORATORYOrdered By: SYSTEM SYSTEM on 02-11-2022 Basophils [...] Invalid Interpretation Code 0.90 - 4.32 10^3/mcL Remisol SS Lymphocytes/100 WBC (Bld) 5.9 % Invalid Interpretation Code 20.0 - 40.0 % AH Remisol SS Monocytes (Bld) [#/Vol] 0.30 103/mcL Invalid Interpretation Code 0.09 - 1.40 10^3/mcL AH Remisol SS Monocytes/100 WBC (Bld) 2.6 % Invalid Interpretation Code 2.0 - 13.0 % AH Remisol SS Neutrophils (Bld) [#/Vol] 11.30 103/mcL Invalid Interpretation Code 2.25 - 8.10 10^3/mcL Remisol SS Neutrophils/100 WBC (Bld) 91.2 % Invalid Interpretation Code 50.0 - 75.0 % Remisol SS MGon 02-11-2022 Magnesium [Mass/Vol] 1.6 mg/dL Normal 1.6-2.4 [facility] ([place] Comment on above: Performed By: #### C BC, ADIFF, CMP, PHOS, MG, GFR, ANEU #### [address] [address] PHOSon 02-11-2022 Phosphate [Mass/Vol] 2.4 mg/dL Normal 2.4-5.1 [facility] ([place] Comment on above: Result Comment: No te - New Reference Range in effect 20 Performed By: #### C BC, ADIFF, CMP, PHOS, MG, GFR, ANEU #### [address] [address] .Auto Diffon 02-10-2022 Basophil, Absolute 0.00 10 3/mcL Normal 0.00-0.27 Counts include 234 beds at the [facility] ([place]) Comment on above: Performed By: #### C BC, ADIFF, CMP, PHOS, MG, GFR, ANEU #### [address] [address] Basophils/100 WBC (Bld) 0.6 % Normal 0.0-2.5 [facility] ([place]) Comment on above: Performed By: #### C BC, ADIFF, CMP, PHOS, MG, GFR, ANEU #### [address] [address] Eosinophil, Absolute 0.10 10 3/mcL Normal 0.00-0.65 A [facility] ([place]) Comment on above: Performed By: #### C BC, ADIFF, CMP, PHOS, MG, GFR, ANEU #### [address] [address] Eosinophils/100 WBC (Bld) 1.0 % Normal 0.0-6.0 [facility] ([place]) Comment on above: Performed By: #### C BC, ADIFF, CMP, PHOS, MG, GFR, ANEU #### [address] [address] Lymphocyte, Absolute 1.80 10 3/mcL Normal 0.90-4.32 A [facility] ([place]) Comment on above: Performed By: #### C BC, ADIFF, CMP, PHOS, MG, GFR, ANEU #### [address] [address] Lymphocytes/100 WBC (Bld) 28.0 % Normal 20.0-40.0 [facility] ([place]) Comment on above: Performed By: #### C BC, ADIFF, CMP, PHOS, MG, GFR, ANEU #### [address] [address] Monocyte, Absolute 0.40 10 3/mcL Normal 0.09-1.40 Counts include 234 beds at the [facility] ([place]) Comment on above: Performed By: #### C BC, ADIFF, CMP, PHOS, MG, GFR, ANEU #### [address] [address] Monocytes/100 WBC (Bld) 5.6 % Normal 2.0-13.0 [facility] ([place]) Comment on above: Performed By: #### C BC, ADIFF, CMP, PHOS, MG, GFR, ANEU #### [address] [address] Neutrophils/100 WBC (Bld) 64.8 % Normal 50.0-75.0 [facility] ([place]) Comment on above: Performed By: #### C BC, ADIFF, CMP, PHOS, MG, GFR, ANEU #### [address] [address] .GFRon 02-10-2022 GFR Non- >60 Normal [facility] ([place]) Comment on above: Result Comment: GFR Population [...] ADIFF, CMP, PHOS, MG, GFR, ANEU #### [address] [address] GFR >60 Normal [facility] ([place]) Comment on above: Result Comment: GFR Population [...] ADIFF, CMP, PHOS, MG, GFR, ANEU #### [address] [address] .NEUABSon 02-10-2022 Neutrophil, Absolute 4.20 10 3/mcL Normal 2.25-8.10 A [facility] ([place]) Comment on above: Performed By: #### C BC, ADIFF, CMP, PHOS, MG, GFR, ANEU #### [place] [address] ABO/Rh (Gel)on 02-10-2022 ABO/Rh Interp Positive Invalid Interpretation Code [facility] ([place]) Comment on above: Performed By: #### C BC, ADIFF, CMP, PHOS, MG, GFR, ANEU #### [place] [id number] ABS (Gel)on 02-10-2022 ABSC Interp (Gel) Negative Normal [facility] ([place]) Comment on above: Performed By: #### C BC, ADIFF, CMP, PHOS, MG, GFR, ANEU #### [place] [address] CBCon 02-10-2022 Erythrocyte distribution width (RBC) [Ratio] 16.9 % High 11.5-15.5 [facility] ([place]) Comment on above: Performed By: #### C BC, ADIFF, CMP, PHOS, MG, GFR, ANEU #### [place] [address] Hematocrit (Bld) [Volume fraction] 39.5 % Normal 34.0-46.0 [facility] ([place]) Comment on above: Performed By: #### C BC, ADIFF, CMP, PHOS, MG, GFR, ANEU #### [place] [address] Hgb 13.2 G/dL Normal 12.0-16.0 [facility] ([place]) Comment on above: Performed By: #### C BC, ADIFF, CMP, PHOS, MG, GFR, ANEU #### [place] [address] MCH (RBC) [Entitic mass] 26.4 pg Low 27.0-33.0 [facility] ([place]) Comment on above: Performed By: #### C BC, ADIFF, CMP, PHOS, MG, GFR, ANEU #### [place] [address] MCHC 33.5 G/dL Normal 32.0-36.0 [facility] ([place]) Comment on above: Performed By: #### C BC, ADIFF, CMP, PHOS, MG, GFR, ANEU #### [place] [id number] MCV (RBC) [Entitic vol] 78.9 fL Low 80.0-99.0 [facility] ([place]) Comment on above: Performed By: #### C BC, ADIFF, CMP, PHOS, MG, GFR, ANEU #### [place] [id number] Platelet 316 10 3/mcL Normal 150-450 [facility] ([place]) Comment on above: Performed By: #### C BC, ADIFF, CMP, PHOS, MG, GFR, ANEU #### [place] [address] Platelet mean volume (Bld) [Entitic vol] 6.5 fL Low 6.6-10.5 [facility] ([place]) Comment on above: Performed By: #### C BC, ADIFF, CMP, PHOS, MG, GFR, ANEU #### [place] [id number] RBC 5.01 10 6/mcL Normal 4.10-5.30 [facility] ([place]) Comment on above: Performed By: #### C BC, ADIFF, CMP, PHOS, MG, GFR, ANEU #### [place] [id number] WBC 6.50 10 3/mcL Normal 4.50-10.80 [facility] ([place]) Comment on above: Performed By: #### C BC, ADIFF, CMP, PHOS, MG, GFR, ANEU #### [place] [id number] CMPon 02-10-2022 Albumin Level 3.9 G/dL Normal 3.2-4.8 [facility] ([place]) Comment on above: Performed By: #### C BC, ADIFF, CMP, PHOS, MG, GFR, ANEU #### [place] [id number] Albumin/Globulin [Mass ratio] 1.3 {ratio} Normal 0.9-1.6 [facility] ([place]) Comment on above: Performed By: #### C BC, ADIFF, CMP, PHOS, MG, GFR, ANEU #### [place] [address] ALP [Catalytic activity/Vol] 96 U/L Normal 38-126 [facility] ([place]) Comment on above: Performed By: #### C BC, ADIFF, CMP, PHOS, MG, GFR, ANEU #### [place] [address] ALT [Catalytic activity/Vol] 51 U/L High 10-49 [facility] ([place]) Comment on above: Performed By: #### C BC, ADIFF, CMP, PHOS, MG, GFR, ANEU #### [place] [address] AST [Catalytic activity/Vol] 43 U/L High 8-34 [facility] ([place]) Comment on above: Performed By: #### C BC, ADIFF, CMP, PHOS, MG, GFR, ANEU #### [place] [address] Bili Total 1.20 mg/dL Normal 0.20-1.20 [facility] ([place]) Comment on above: Result Comment: Use of this assay is not recommended for patients undergoing treatment with eltrombopag due to the potential for falsely elevated results. Performed By: #### C BC, ADIFF, CMP, PHOS, MG, GFR, ANEU #### [place] [address] BUN/Creatinine Ratio 16.7 ratio Normal 10.0-22.0 [facility] ([place]) Comment on above: Performed By: #### C BC, ADIFF, CMP, PHOS, MG, GFR, ANEU #### [place] [address] Calcium [Mass/Vol] 9.4 mg/dL Normal 8.7-10.4 [facility] ([place]) Comment on above: Result Comment: No te - New Reference Range in effect 20 Performed By: #### C BC, ADIFF, CMP, PHOS, MG, GFR, ANEU #### [address] [address] Chloride [Moles/Vol] 106 mmol/L Normal 98-110 [facility] ([place]) Comment on above: Performed By: #### C BC, ADIFF, CMP, PHOS, MG, GFR, ANEU #### [address] [address] CO2 [Moles/Vol] 26 mmol/L Normal 22-32 [facility] ([place]) Comment on above: Performed By: #### C BC, ADIFF, CMP, PHOS, MG, GFR, ANEU #### [address] [address] Creatinine [Mass/Vol] 0.48 mg/dL Low 0.50-1.20 Counts include 234 beds at the [facility] ([place]) Comment on above: Performed By: #### C BC, ADIFF, CMP, PHOS, MG, GFR, ANEU #### [place] [id number] Electrolyte Balance 8.0 mEq/L Normal 4.0-15.0 [facility] ([place]) Comment on above: Performed By: #### C BC, ADIFF, CMP, PHOS, MG, GFR, ANEU #### [address] [address] Globulin 3.1 G/dL Normal 1.5-3.8 [facility] ([place]) Comment on above: Performed By: #### C BC, ADIFF, CMP, PHOS, MG, GFR, ANEU #### [address] [address] Glucose [Mass/Vol] 80 mg/dL Normal 70-110 [facility] ([place]) Comment on above: Performed By: #### C BC, ADIFF, CMP, PHOS, MG, GFR, ANEU #### [address] [address] Potassium [Moles/Vol] 4.6 mmol/L Normal 3.5-5.0 Counts include 234 beds at the [facility] ([place]) Comment on above: Result Comment: Spec imen slightly hemolyzed. Performed By: #### C BC, ADIFF, CMP, PHOS, MG, GFR, ANEU #### [address] [address] Sodium [Moles/Vol] 140 mmol/L Normal 136-145 [facility] ([place]) Comment on above: Performed By: #### C BC, ADIFF, CMP, PHOS, MG, GFR, ANEU #### [address] [address] Total Protein 7.0 G/dL Normal 5.7-8.2 [facility] ([place]) Comment on above: Result Comment: No te - New Reference Range in effect 20 Performed By: #### C BC, ADIFF, CMP, PHOS, MG, GFR, ANEU #### [address] [address] Urea nitrogen [Mass/Vol] 8.0 mg/dL Normal 8.0-22.0 [facility] ([place]) Comment on above: Performed By: #### C BC, ADIFF, CMP, PHOS, MG, GFR, ANEU #### [address] [address] LABORATORYOrdered By: Bing Conley on 02-10-2022 ABO and Rh group Nom (Bld) Blood group A Rh(D) positive Invalid Interpretation Code AH BB Auto SS Blood group antibody screen Ql NEG (02/10/22 1:43 PM) Invalid Interpretation Code AH BB Auto SS LABORATORYOrdered By: Luciana miramontes on 02-10-2022 Beta HCG ( test) Ql (U) Negative (02/10/22 1:41 PM) [facility] Work Phone: Clinical Summary: Gordon lewis 11-18-2021 MC75 OP Visit Invalid Interpretation Code [facility] Work Phone: Office Visit: New - 1st visi t with practice, Rm: 2on 11-18-2021 NEGATED: Highlighted rowxray history of the foot on 11/13/2021 at [facility] Invalid Interpretation Code [facility] Work Phone: Clinical Lists Update: Prelo ad Extendedon 11-15-2021 Tobacco smoking status Tobacco smoking status Invalid Interpretation Code [facility] Work Phone: Clinical Summary: Scanned Hi story Summaryon 11-15-2021 brother(s) of patient alive or I do not have any brothers. My brother(s)' health history is unknown. Invalid Interpretation Code [facility] Work Phone: comments about allergies Morphine. Invalid Interpretation Code [facility] Work Phone: Data entered by patient exercise frequency 5 days per week Invalid Interpretation Code [facility] Work Phone: Data entered by patient exercise type walking Invalid Interpretation Code [facility] Work Phone: Data entered by patient, additional medical problems complications-ileostomy Invalid Interpretation Code [facility] Work Phone: data entered by patient, alcohol (ethanol or ETOH) use No Invalid Interpretation Code [facility] Work Phone: Data entered by patient, allergy list Animals Dust mites Mold Plant pollens (Hay Fever) Peanuts Invalid Interpretation Code [facility] Work Phone: Data Entered by Patient, Current Medications Taking I am not taking any medications, vitamins or supplements. Invalid Interpretation Code [facility] Work Phone: data entered by patient, drug (of abuse) use No Invalid Interpretation Code [facility] Work Phone: data entered by patient, Employer Name unemployed Invalid Interpretation Code [facility] Work Phone: data entered by patient, exercise history Yes Invalid Interpretation Code [facility] Work Phone: data entered by patient, father's medical history Diabetes - insulin dependent Invalid Interpretation Code [facility] Work Phone: data entered by patient, mother's medical history Arthritis Obesity Invalid Interpretation Code [facility] Work Phone: data entered by patient, past medical history Anxiety Obesity Invalid Interpretation Code [facility] Work Phone: data entered by patient, social history, current smoker former smoker Invalid Interpretation Code [facility] Work Phone: data entered by patient, social history, former smoker 2015 Invalid Interpretation Code [facility] Work Phone: data entered by patient, social history, marital status Invalid Interpretation Code [facility] Work Phone: father of patient is alive or Alive Invalid Interpretation Code [facility] Work Phone: father's medical history, comments Not quite sure Invalid Interpretation Code [facility] Work Phone: Housing Type: apartment, house, intermediate, trailer, none apartment Invalid Interpretation Code [facility] Work Phone: housing unit size (asthma environmental history, housing) (from single family to don't know) 1 floor Invalid Interpretation Code [facility] Work Phone: mother of patient is alive or Alive Invalid Interpretation Code [facility] Work Phone: Number of dependent children Yes Invalid Interpretation Code [facility] Work Phone: Web entered surgical history comments [place] teeth, ileostomy, vagina fisutal repair ??3 Invalid Interpretation Code [facility] Work Phone: LABORATORYOrdered By: SYSTEM SYSTEM on 09-09-2021 Albumin BCP dye [Mass/Vol] 3.4 G/dL Invalid Interpretation Code 3.2 - 4.8 G/dL AH ADM SS Albumin/Globulin [Mass ratio] 1.1 {ratio} Invalid Interpretation Code 0.9 - 1.6 ratio ADM SS ALP [Catalytic activity/Vol] 75 U/L [...] - 2.5 % Remisol SS Bilirubin [Mass/Vol] 0.40 mg/dL Invalid Interpretation Code 0.20 - 1.20 mg/dL AH ADM SS Calcium [Mass/Vol] 9.0 mg/dL Invalid Interpretation Code 8.7 - 10.4 mg/dL AH ADM SS Chloride [Moles/Vol] 108 mmol/L Invalid Interpretation Code 98 - 110 mEq/L ADM SS CO2 [Moles/Vol] 22 mmol/L Invalid Interpretation Code 22 - 32 mEq/L ADM SS Creatinine [Mass/Vol] 0.70 mg/dL Invalid [...] Code 4.50 - 10.80 10^3/mcL Remisol SS LABORATORYOrdered By: SYSTEM SYSTEM on [...] (S/P/Bld) [Vol rate/Area] ml/min/1.73sqm Invalid Interpretation Code ADM SS Globulin (S) [Mass/Vol] 4.0 G/dL [...] - 40.0 % Remisol SS Magnesium [Mass/Vol] 2.0 mg/dL Invalid [...] Invalid Interpretation Code 0.9 - 1.6 ratio ADM SS ALP [Catalytic activity/Vol] 61 U/L [...] - 2.5 % Remisol SS Bilirubin [Mass/Vol] 0.60 mg/dL Invalid Interpretation Code 0.20 - 1.20 mg/dL ADM SS Calcium [Mass/Vol] 8.9 mg/dL Invalid Interpretation Code 8.7 - 10.4 mg/dL ADM SS Chloride [Moles/Vol] 107 mmol/L Invalid Interpretation Code 98 - 110 mEq/L ADM SS CO2 [Moles/Vol] 27 mmol/L Invalid Interpretation Code 22 - 32 mEq/L ADM SS Creatinine [Mass/Vol] 0.59 mg/dL Invalid Interpretation Code 0.50 - 1.20 mg/dL AH ADM SS Electrolyte Balance 6.0 mEq/L Invalid Interpretation Code 4.0 - 15.0 mEq/L ADM SS Eosinophils (Bld) [#/Vol] 0.10 103/mcL Invalid Interpretation Code 0.00 - 0.65 10^3/mcL Remisol SS Eosinophils/100 WBC (Bld) 1.3 % [...] Invalid Interpretation Code 1.6 - 2.4 mg/dL ADM SS MCH (RBC) [Entitic mass] 25.7 [...] - 3.8 G/dL ADM SS Glucose [Mass/Vol] 113 mg/dL Invalid Interpretation Code 70 - 110 mg/dL AH ADM SS Hematocrit (Bld) [Volume fraction] 33.3 % Invalid Interpretation Code 34.0 - 46.0 % Remisol SS Hemoglobin (Bld) [Mass/Vol] 10.5 G/dL Invalid Interpretation Code 12.0 - 16.0 G/dL AH Remisol SS Lymphocytes (Bld) [#/Vol] 1.10 103/mcL Invalid Interpretation Code 0.90 - 4.32 10^3/mcL AH Remisol SS Lymphocytes/100 WBC (Bld) 11.0 % Invalid Interpretation Code 20.0 - 40.0 % Remisol SS Magnesium [Mass/Vol] 1.7 mg/dL Invalid Interpretation Code 1.6 - 2.4 mg/dL ADM SS MCH (RBC) [Entitic mass] 25.0 [...] Invalid Interpretation Code 50.0 - 75.0 % Remisol SS Phosphate [Mass/Vol] 3.6 mg/dL Invalid [...] NEG (08/30/21 8:43 PM) Invalid Interpretation Code AH BB Auto SS LABORATORYOrdered By: Growish SYSTEM on 08-28-2021 Albumin BCP dye [Mass/Vol] [...] 110 mEq/L AH ADM SS CO2 [Moles/Vol] 30 mmol/L Invalid [...] Invalid Interpretation Code AH Chemistry S Globulin 2.5 G/dL Invalid Interpretation [...] 3.8 G/dL AH ADM SS Glucose [Mass/Vol] 105 mg/dL Invalid [...] - 40.0 % Remisol SS Magnesium [Mass/Vol] 1.8 mg/dL Invalid [...] Ql (U) Negative (08/26/21 9:36 AM) [facility] Work Phone: Basic Metabolic Panelon 06-12 Calcium [Mass/Vol] 8.7 mg/dL Normal 8.4-10.4 [facility] Comment on above: Performed By: #### C MP3, HEMDF #### [facility] [address], [place] Glucose [Mass/Vol] 83 mg/dL Normal 70-100 [facility] Comment on above: Performed By: #### C MP3, HEMDF #### [facility] [address], [place] Urea nitrogen [Mass/Vol] 4 mg/dL Low 9-20 [facility] Comment on above: Performed By: #### C MP3, HEMDF #### [facility] [address], [place] Anion gap [Moles/Vol] 6 mmol/L Normal 3-13 [facility] Comment on above: Performed By: #### C MP3, HEMDF #### [facility] [address], [place] CO2 [Moles/Vol] 26 mmol/L Normal 22-30 [facility] Comment on above: Performed By: #### C MP3, HEMDF #### [facility] [address], [place] Creatinine [Mass/Vol] 0.46 mg/dL Low 0.52-1.25 [facility] Comment on above: Performed By: #### C MP3, HEMDF #### [facility] [address], [place] eGFR OTHER > 90.0 Normal >60 [facility] Comment on above: Result Comment: KDIG [...] Performed By: #### C MP3, HEMDF #### [facility] [address], [place] GFR/1.73 sq M.predicted among blacks MDRD (S/P/Bld) [Vol rate/Area] mL/min/{1.73_m2} Normal >60 [facility] Comment on above: Performed By: #### C MP3, HEMDF #### [place] [address], [place] Potassium [Moles/Vol] 4.7 mmol/L Normal 3.5-5.1 [facility] Comment on above: Result Comment: Mode rately hemolysed, interpret with caution. Performed By: #### C MP3, HEMDF #### [place] [address], [place] Chloride [Moles/Vol] 106 mmol/L Normal 98-107 [facility] Comment on above: Performed By: #### C MP3, HEMDF #### [place] [address] [address], [place] Sodium [Moles/Vol] 139 mmol/L Normal 135-145 [facility] Comment on above: Performed By: #### C MP3, HEMDF #### [place] [address] [address], [place] Basic Metabolic PanelOrdered By: Shelley Escobar on 06-22-2021 Anion gap [Moles/Vol] 6 mmol/L 3 - 13 mmol/L [facility] Work Phone: Calcium [Mass/Vol] 8.7 mg/dL 8.4 - 10. 4 mg/dL [facility] Work Phone: Chloride [Moles/Vol] 106 mmol/L 98 - 10 7 mmol/L [facility] Work Phone: CO2 [Moles/Vol] 26 mmol/L 22 - 30 mmol/L [facility] Work Phone: Creatinine [Mass/Vol] 0.46 mg/dL Low 0.52 - 1.25 mg/dL [facility] Work Phone: [phone] EGFR IF NonAfrican Panamanian >90.0 >60 mL/min [facility] Work Phone: [phone] Comment on above: KDIGO guidelines pro vide [...] MDRD (S/P/Bld) [Vol rate/Area] mL/min/{1.73_m2} >60 mL/min [facility] Work Phone: [phone] Glucose [Mass/Vol] 83 mg/dL 70 - 100 mg/dL [facility] Work Phone: Interpretation and review of laboratory results Abnormal [facility] Work Phone: [phone] Potassium [Moles/Vol] 4.7 mmol/L 3.5 - 5.1 mmol/L [facility] Work Phone: Comment on above: Moderately hemolysed , interpret with caution. Sodium [Moles/Vol] 139 mmol/L 135 - 145 mmol/L [facility] Work Phone: [phone] Urea nitrogen (BldV) [Mass/Vol] 4 mg/dL Low 9 - 20 mg/dL [facility] Work Phone: [phone] Complete Urinalysison 2020 Appearance (U) Turbid Abnormal Clear [facility] Comment on above: Result Comment: . Performed By: #### C MP3, HEMDF #### [facility] [address], [place] Bacteria Few Abnormal Negative [facility] Comment on above: Result Comment: . Performed By: #### C MP3, HEMDF #### [facility] [address], [place] Bilirubin,Urine Negative Normal Negative [facility] Comment on above: Result Comment: . Performed By: #### C MP3, HEMDF #### [facility] [address], [place] Cast, Hyaline Negative Normal Negative [facility] Comment on above: Result Comment: . Performed By: #### C MP3, HEMDF #### [place] [address] [address], [place] Color (U) Yellow Normal Lt. Yellow [facility] Comment on above: Result Comment: . Performed By: #### C MP3, HEMDF #### [place] [address] [address], [place] Glucose Ql (U) Normal Normal Normal (<70) [facility] Comment on above: Result Comment: . Performed By: #### C MP3, HEMDF #### [place] [address] [address], [place] Ketone,Urine Negative Normal Negative [facility] Comment on above: Result Comment: . Performed By: #### C MP3, HEMDF #### [facility] [address], [place] Leukocytes,Urine 500 Delmy/uL Abnormal Negative [facility] Comment on above: Result Comment: . Performed By: #### C MP3, HEMDF #### [facility] [address] Mucous Threads Few Normal Negative [facility] Comment on above: Result Comment: . Performed By: #### C MP3, HEMDF #### [place] [address] [address], [place] Nitrites,Urine Negative Normal Negative [facility] Comment on above: Result Comment: . Performed By: #### C MP3, HEMDF #### [facility] [address], [place] Occult Blood,Urine 0.1 mg/dL Abnormal Negative [facility] Comment on above: Result Comment: . Performed By: #### C MP3, HEMDF #### [facility] [address], [place] pH,Urine 7.5 Normal 5.0-8.0 [facility] Comment on above: Result Comment: . Performed By: #### C MP3, HEMDF #### [place] [address] [address], [place] RBC, Urine 0 - 2 Normal 0-2 [facility] Comment on above: Result Comment: . Performed By: #### C MP3, HEMDF #### [place] [address], [place] Specific [place],Urine < 1.005 Abnormal 1.005 - 1.030 [facility] Comment on above: Result Comment: . Performed By: #### C MP3, HEMDF #### [place] [address] [address], [place] Squamous Epithelial 3 - 5 Normal 3-5 [facility] Comment on above: Result Comment: . Performed By: #### C MP3, HEMDF #### [place] [address], [place] Total Protein,Urine Negative Normal Negative [facility] Comment on above: Result Comment: . Performed By: #### C MP3, HEMDF #### [place] [address] [address], [place] Urobilinogen,Urine Normal Normal Normal (0-1) [facility] Comment on above: Result Comment: . Performed By: #### C MP3, HEMDF #### [place] [address] [address], [place] WBC LM.HPF (Urine sed) [#/Area] /[HPF] Abnormal 0-5 [facility] Comment on above: Result Comment: . Performed By: #### C MP3, HEMDF #### [place] [address] [place] [address] White Blood Cell Clump Few Abnormal Negative [facility] Comment on above: Result Comment: . Performed By: #### C MP3, HEMDF #### [facility] [address] [place] [phone] ED Provider Noteon ED Provider Note ACH [...] patient come from an ECF, SNF, Rehab, Long Term or other Congregate setting: no (If yes to above patient needs a Covid-19 test) HPI Leelee Zamora is a 26 y.o. female who presents to the emergency department presenting with concern for episiotomy infection. Her episiotomy was done at the beginning of May 2021. She was recently admitted to [facility] for C. difficile infection. She states she [...] Gatherings with Friends and Family: ? Attends Restoration Services: ? Active Member of Clubs or Organizations: ? Attends Club or Organization Meetings: ? Marital Status: Intimate Partner Violence: ? Fear of Current or Ex-Partner: ? Emotionally Abused: ? Physically (more content not included)... Normal [facility] ED Provider Note Emergency Department Encounter [facility] EMERGENCY DEPT Patient: Leelee Zamora : 1995 [...] Brief ED course/MDM: Patient was evaluated by POT ROOM TAPPER in the emergency department. She was cleared [...] words are mis-transcribed.) Ceasar Fenton MD [employer] Ceasar Fenton MD 06/24/21 2614 Normal [facility] Hemogramon 06-22-2021 Erythrocyte distribution width (RBC) [Ratio] 15.8 % High 11.5-14.5 [facility] Comment on above: Performed By: #### C MP3, HEMDF #### [place] [address] [address], [place] Hematocrit (Bld) [Volume fraction] 33.0 % Low 35.0-47.0 [facility] Comment on above: Performed By: #### C MP3, HEMDF #### [place] [address] [address], [place] Hemoglobin (Bld) [Mass/Vol] 10.8 g/dL Low 11.7-16.0 [facility] Comment on above: Performed By: #### C MP3, HEMDF #### [place] [address] [place], [place] MCH (RBC) [Entitic mass] 26.4 pg Normal 26.0-34.0 [facility] Comment on above: Performed By: #### C MP3, HEMDF #### [place] [address] [address], [place] MCHC 32.6 % Normal 32.0-36.0 [facility] Comment on above: Performed By: #### C MP3, HEMDF #### [place] [address] [address], [place] MCV (RBC) [Entitic vol] 81.0 fL Normal 79.0-98.0 [facility] Comment on above: Performed By: #### C MP3, HEMDF #### [place] [address] [address], [place] Platelet mean volume (Bld) [Entitic vol] 7.3 fL Low 7.4-10.4 [facility] Comment on above: Performed By: #### C MP3, HEMDF #### [place] [address] [place], [place] Platelets (Bld) [#/Vol] 330 10*3/uL Normal 140-440 [facility] Comment on above: Performed By: #### C MP3, HEMDF #### [place] [address] [address], [place] RBC (Bld) [#/Vol] 4.08 10*6/uL Normal 3.80-5.20 [facility] Comment on above: Performed By: #### C MP3, HEMDF #### [facility] [address], [place] WBC (Bld) [#/Vol] 6.2 10*3/uL Normal 3.6-10.7 [facility] Comment on above: Performed By: #### C MP3, HEMDF #### [facility] [address], [place] Hemogram (CBC)Ordered By: Sa rajni Escobar on 06-22-2021 Hematocrit (Bld) [Volume fraction] 33.0 % Low 35.0 - 47.0 % [facility] Phone: [phone] Hemoglobin.gastrointe stinal spec 1 Ql (Stl) 10.8 g/dL Low 11.7 - 16.0 g/dL [facility] Work Phone: [phone] Interpretation and review of laboratory results Abnormal [facility] Work Phone: [phone] MCH (RBC) [Entitic mass] 26.4 pg 26.0 - 34.0 pg [facility] Work Phone: MCHC (RBC) [Mass/Vol] 32.6 % 32.0 - 36.0 % [facility] Phone: MCV (RBC) [Entitic vol] 81.0 fL 79.0 - 98.0 fL [facility] Work Phone: Platelet distribution width (Bld) [Ratio] 15.8 % High 11.5 - 14.5 % [facility] Work Phone: Platelet mean volume (Bld) [Entitic vol] 7.3 fL Low 7.4 - 10.4 fL [facility] Work Phone: Platelets (Bld) [#/Vol] 330 10*3/uL 140 - 440 10*3/uL [facility] Work Phone: RBC (Bld) [#/Vol] 4.08 10*6/uL 3.80 - 5.2 0 10*6/uL [facility] Work Phone: [phone] WBC (Bld) [#/Vol] 6.2 10*3/uL 3.6 - 10.7 10*3/uL [facility] Work Phone: [phone] Test Performed by [facility], [address] [place] [address] [facility] Work Phone: [phone] [facility] Work Phone: 1 Lipaseon 06-22-2021 Lipase [Catalytic activity/Vol] 38 U/L Normal 23-300 [facility] Comment on above: Performed By: #### C MP3, HEMDF #### [facility] [address] [place] [phone] LipaseOrdered By: Shelley chávez on 06-22-2021 Lipase [Catalytic activity/Vol] 38 U/L 23 - 300 U/L [facility] Work Phone: [phone] No Panel InformationOrdered By: Shelley Escobar on 06-22-2021 Test Performed by [employer] [facility], [address] [place] [address] [facility] Work Phone: [phone] [facility] Work Phone: [phone] UrinalysisOrdered By: Vianey Escobar on 06-22-2021 Appearance (U) Turbid Abnormal Clear NA [facility] Work Phone: [phone] Comment on above: . Bacteria, UA Few Abnormal Negative /[HPF] [facility] Work Phone: [phone] Comment on above: . Bilirubin Urine Negative Negative mg/dL [facility] Work Phone: [phone] Comment on above: . Color (U) Yellow Lt. Yellow NA [facility] Work Phone: [phone] Comment on above: . Glucose, Ur Normal Normal (<70) mg/dL [facility] Work Phone: [phone] Comment on above: . Hyaline Casts, UA Negative Negative /[LPF] [facility] Work Phone: [phone] Comment on above: . Interpretation and review of laboratory results Abnormal [facility] Work Phone: Ketones Ql (U) Negative Negative mg/dL [facility] Work Phone: [phone] Comment on above: . LEUKOCYTES, UA 500 Abnormal Negative Delmy/uL [facility] Work Phone: [phone] Comment on above: . Mucous Threads Few Negative /[LPF] [facility] Work Phone: [phone] Comment on above: . Nitrite, Urine Negative Negative NA [facility] Work Phone: [phone] Comment on above: . Occult Blood,Urine 0.1 mg/dL Abnormal Negative [facility] Work Phone: [phone] Comment on above: . pH (U) 7.5 [pH] [facility] Work Phone: 1 Comment on above: . RBC, UA 0-2 0 - 2 /[HPF] [facility] Work Phone: 1 Comment on above: . Specific [place], Urine <1.005 Abnormal [facility] Work Phone: 1 Comment on above: . Squam Epithel, UA 3-5 3 - 5 /[HPF] [facility] Work Phone: 1 Comment on above: . Total Protein, Urine Negative Negativ e mg/dL [facility] Work Phone: 1 Comment on above: . Urobilinogen, Urine Normal Normal ( 0-1) mg/dL [facility] Work Phone: 1 Comment on above: . WBC Clumps, Urine Few Abnormal Negative /[HPF] [facility] Work Phone: 1 Comment on above: . WBC, UA >100 Abnormal 0 - 5 /[HPF] [facility] Work Phone: 1 Comment on above: . Test Performed by [facility], [address] [place] [address] [facility] Work Phone: [phone] [facility] Work Phone: [phone] CULTURE URINEon 06-10-2021 CULTURE URINE CULTURE URINE --> St atus: F Insignificant growth based on current clinical guidelines. Normal [facility] [employer] Comment on above: Performed By: #### C /UR #### [facility] [place] [address] Add On Lab TestOrdered By: Michel Calix on 06-09-2021 Add On Accepted [facility] Work Phone: [phone] Comment on above: Specimen available & acceptable for analysis. Test Performed by [facility], [address] [place] [id number] [facility] Work Phone: [phone] [facility] Work Phone: [phone] Add on test from HISon 06-09 Add on test from HIS Accepted Normal [facility] Comment on above: Result Comment: Spec imen available & acceptable for analysis. Performed By: #### A DDON #### [address] [address] C. Trachomatis / N. Gonorrho eae, DNAOrdered By: Sam Calix on 06-09-2021 C. trachomatis DNA SANJEEV+probe Ql (Genital specimen) NOT Detected Chlamydia trachomatis Nucleic Acid NOT Detected by DNA Amplification using the Silvercarheid System. Culture is the only recommended test in medical-legal cases such as suspected child abuse or molestation. [facility] Work Phone: [phone] N. gonorrhoeae DNA SANJEEV+probe Ql (Unsp spec) NOT Detected Neisseria gonorrhoeae Nucleic Acid NOT Detected by DNA Amplification using the Cepheid System. Culture is the only recommended test in medical-legal cases such as suspected child abuse or molestation. [facility] Work Phone: [phone] Test Performed by [facility], [address] [place] [address] [facility] Work Phone: [phone] [facility] Work Phone: [phone] CT Abdomen and Pelvis W cont rast IVOrdered By: Michelle Stallings on 06-09-2021 Patient Name: LEELEE ZAMORA [facility] ACCESSION EXAM DATE/TIME PROCEDURE ORDERING PROVIDER [id number] 06/09/2021 14:[address] Abdomen/Pelvis w/ IV [id number] -STALLINGS, Contrast (IV Onl MICHELLE CPT code 48237 Q9967 Reason For Exam (CT Abdomen/Pelvis w/ [...] Phone: [place], [facility] Incoming Radiology Results From [facility] - 06/09/2021 3:00 PM EDT Patient Name: [id number] Computed Tomography ACCESSION EXAM DATE/TIME PROCEDURE ORDERING PROVIDER [id number] 06/09/2021 14:[address] Abdomen/Pelvis w/ [place] [id number] -CHANDRAKANT, Contrast (IV Onl MICHELLE CPT code 64240 Q9967 Reason For Exam (CT Abdomen/Pelvis w/ [...] and Time: 06/09/2021 2:51 [facility] Work Phone: [facility] Work Phone: CT Abdomen/Pelvis w/ Contras ton 06-09-2021 CT Abdomen/Pelvis w/ Contrast Patient Name: LEELEE ZAMORA [employer] Tom[employer] ACCESSION EXAM DATE/TIME PROCEDURE ORDERING PROVIDER [id number] 06/09/2021 14:[address] Abdomen/Pelvis w/ IV [id number] -CHANDRAKANT, Contrast (IV Onl MICHELLE CPT code 96487 Q9967 Reason For Exam (CT Abdomen/Pelvis w/ [...] Transcribed Date and Time: 06/09/2021 2:51 Normal [facility] Chlamydia and GC PCR Panelon 06-09-2021 [...] as suspected child abuse or molestation. Normal [facility] Comment on above: Performed By: #### C TNGP #### [facility] [address] [place] [phone] Comp Metabolic Panelon 08-29 -2021 ALP [Catalytic activity/Vol] 80 U/L Normal 38-126 [facility] Comment on above: Performed By: #### C MP3, HEMDF #### [facility] [address], [place] ALT [Catalytic activity/Vol] 16 U/L Normal 0-34 [facility] Comment on above: Result Comment: The ALT test is performed by an updated assay method. Please note that the reference intervals have been changed and are now sex specific. Performed By: #### C MP3, HEMDF #### [place] [address] [address], [place] Calcium [Mass/Vol] 9.1 mg/dL Normal 8.4-10.4 [facility] Comment on above: Performed By: #### C MP3, HEMDF #### [place] [address] [address], [place] Glucose [Mass/Vol] 97 mg/dL Normal 70-100 [facility] Comment on above: Performed By: #### C MP3, HEMDF #### [place] [address] [address], [place] Urea nitrogen [Mass/Vol] 8 mg/dL Normal 7-20 [facility] Comment on above: Performed By: #### C MP3, HEMDF #### [place] [address] [address], [place] Anion gap [Moles/Vol] 9 mmol/L Normal 3-13 [facility] Comment on above: Performed By: #### C MP3, HEMDF #### [place] [address] [address], [place] AST [Catalytic activity/Vol] 22 U/L Normal 15-46 [facility] Comment on above: Performed By: #### C MP3, HEMDF #### [place] [address] [address], [place] Bilirubin [Mass/Vol] 0.6 mg/dL Normal 0.2-1.3 [facility] Comment on above: Performed By: #### C MP3, HEMDF #### [place] [address] [address], [place] CO2 [Moles/Vol] 23 mmol/L Normal 22-30 [facility] Comment on above: Performed By: #### C MP3, HEMDF #### [place] [address] [place], [place] Creatinine [Mass/Vol] 0.53 mg/dL Normal 0.52-1.25 [facility] Comment on above: Performed By: #### C MP3, HEMDF #### [place] [address] [place], [place] eGFR OTHER > 90.0 Normal >60 [facility] Comment on above: Result Comment: KDIG [...] Performed By: #### C MP3, HEMDF #### [place] [address] [place], [place] GFR/1.73 sq M.predicted among blacks MDRD (S/P/Bld) [Vol rate/Area] mL/min/{1.73_m2} Normal >60 [facility] Comment on above: Performed By: #### C MP3, HEMDF #### [address] Protein [Mass/Vol] 6.8 g/dL Normal 6.3-8.2 [facility] Comment on above: Performed By: #### C MP3, HEMDF #### [address] Potassium [Moles/Vol] 3.8 mmol/L Normal 3.5-5.1 [facility] Comment on above: Performed By: #### C MP3, HEMDF #### [place] [address] [address], [place] Sodium [Moles/Vol] 140 mmol/L Normal 135-145 [facility] Comment on above: Performed By: #### C MP3, HEMDF #### [place] [address] [address], [place] Albumin [Mass/Vol] 4.0 g/dL Normal 3.5-5.0 [facility] Comment on above: Performed By: #### C MP3, HEMDF #### [place] [address] [address], [place] Chloride [Moles/Vol] 108 mmol/L High 98-107 [facility] Comment on above: Performed By: #### C MP3, HEMDF #### [place] [address] [address], [place] Complete Urinalysison 2020 Appearance (U) Turbid Abnormal Clear [facility] Comment on above: Result Comment: . Performed By: #### C MP3, HEMDF #### [place] [address] [address], [place] Bacteria Few Abnormal Negative [facility] Comment on above: Result Comment: . Performed By: #### C MP3, HEMDF #### [place] [address] [address], [place] Bilirubin,Urine Negative Normal Negative [facility] Comment on above: Result Comment: . Performed By: #### C MP3, HEMDF #### [place] [address] [address], [place] Cast, Hyaline Negative Normal Negative [facility] Comment on above: Result Comment: . Performed By: #### C MP3, HEMDF #### [place] [address] [address], [place] Color (U) Light-Yellow Normal Lt. Yellow [facility] Comment on above: Result Comment: . Performed By: #### C MP3, HEMDF #### [facility] [address], [place] Glucose Ql (U) Normal Normal Normal (<70) [facility] Comment on above: Result Comment: . Performed By: #### C MP3, HEMDF #### [facility] [address], [place] Ketone,Urine Negative Normal Negative [facility] Comment on above: Result Comment: . Performed By: #### C MP3, HEMDF #### [facility] [address], [place] Leukocytes,Urine 500 Delmy/uL Abnormal Negative [facility] Comment on above: Result Comment: . Performed By: #### C MP3, HEMDF #### [facility] [address], [place] Mucous Threads Few Normal Negative [facility] Comment on above: Result Comment: . Performed By: #### C MP3, HEMDF #### [facility] [address], [place] Nitrites,Urine Negative Normal Negative [facility] Comment on above: Result Comment: . Performed By: #### C MP3, HEMDF #### [place] [address] [address], [place] Non-Squamous Epithelial 1 /[HPF] Abnormal Negative [facility] Comment on above: Result Comment: . Performed By: #### C MP3, HEMDF #### [facility] [address], [place] Occult Blood,Urine 0.2 mg/dL Abnormal Negative [facility] Comment on above: Result Comment: . Performed By: #### C MP3, HEMDF #### [facility] [address], [place] pH,Urine 6.5 Normal 5.0-8.0 [facility] Comment on above: Result Comment: . Performed By: #### C MP3, HEMDF #### [place] [address] [address], [place] RBC, Urine 26 - 50 Abnormal 0-2 [facility] Comment on above: Result Comment: . Performed By: #### C MP3, HEMDF #### [facility] [address] [place] [address] Specific [place],Urine 1.014 Normal 1.005 - 1.030 [facility] Comment on above: Result Comment: . Performed By: #### C MP3, HEMDF #### [facility] [address] [place] [address] Squamous Epithelial 11 - 25 Abnormal 3-5 [facility] Comment on above: Result Comment: . Performed By: #### C MP3, HEMDF #### [facility] [address] [place] [address] Total Protein,Urine Negative Normal Negative [facility] Comment on above: Result Comment: . Performed By: #### C MP3, HEMDF #### [facility] [employer] [facility] [address] [place] [address] Urobilinogen,Urine Normal Normal Normal (0-1) [facility] Comment on above: Result Comment: . Performed By: #### C MP3, HEMDF #### [facility] [employer] [facility] [address] [place] [address] WBC, Urine 51 - 100 Abnormal 0-5 [facility] Comment on above: Result Comment: . Performed By: #### C MP3, HEMDF #### [facility] [employer] [facility] [address] [place] [address] Comprehensive Metabolic Pane lOrdered By: Michelle Stallings on 06-09-2021 Albumin [Mass/Vol] 4.0 g/dL 3.5 - 5.0 g/dL [facility] Work Phone: ALP (Bld) [Catalytic activity/Vol] 80 U/L 38 - 126 U/L [facility] Work Phone: [phone] ALT [Catalytic activity/Vol] 16 U/L 0 - 34 U/L [facility] Work Phone: [phone] Comment on above: The ALT test is perf ormed by an updated assay method. Please note that the reference intervals have been changed and are now sex specific. Anion gap [Moles/Vol] 9 mmol/L 3 - 13 mmol/L [facility] Work Phone: [phone] AST [Catalytic activity/Vol] 22 U/L 15 - 46 U/L [facility] Work Phone: [phone] Bilirubin [Mass/Vol] 0.6 mg/dL 0.2 - 1 .3 mg/dL [facility] Work Phone: [phone] Calcium [Mass/Vol] 9.1 mg/dL 8.4 - 10. 4 mg/dL [facility] Work Phone: [phone] [Moles/Vol] 108 mmol/L High 98 - 10 7 mmol/L [facility] Work Phone: [phone] CO2 [Moles/Vol] 23 mmol/L 22 - 30 mmol/L [facility] Work Phone: [phone] Creatinine [Mass/Vol] 0.53 mg/dL 0.52 - 1.25 mg/dL [facility] Work Phone: [phone] EGFR IF NonAfrican Panamanian >90.0 >60 mL/min [facility] Work Phone: [phone] Comment on above: KDIGO guidelines pro vide [...] fraction] 6.8 g/dL 6.3 - 8.2 g/dL [facility] Work Phone: [phone] GFR/1.73 sq M.predicted among blacks MDRD (S/P/Bld) [Vol rate/Area] mL/min/{1.73_m2} >60 mL/min [facility] Work Phone: Glucose [Mass/Vol] 97 mg/dL 70 - 100 mg/dL [facility] Work Phone: [phone] Interpretation and review of laboratory results Abnormal [facility] Work Phone: [phone] Potassium [Moles/Vol] 3.8 mmol/L 3.5 - 5.1 mmol/L [facility] Work Phone: [phone] Sodium [Moles/Vol] 140 mmol/L 135 - 145 mmol/L [facility] Work Phone: [phone] Urea nitrogen (BldV) [Mass/Vol] 8 mg/dL 7 - 20 mg/dL [facility] Work Phone: [phone] Test Performed by [address] [address] [facility] Work Phone: [facility] Work Phone: ED Provider Noteon ED Provider [...] Gatherings with Friends and Family: ? Attends Restoration Services: ? Active Member of Clubs or [...] 1112 06/09/21 (more content not included)... Normal [facility] ED Provider Note Emergency Department Encounter [...] ago. Patient states that she saw her checker loader earlier this week and was started on [...] for discharge and outpatient follow-up with her checker loader ED Course as of Jun 09 2050 Sun Jun 09, 2021 1453 Hemogram (CBC) w/Auto Diff(!): WBC 6.8 RBC 4.49 Hemoglobin Quant 11.5(!) Hematocrit 36.8 MCV 82.0 MCH 25.7(!) MCHC 31.4(!) RDW 16.8(!) Platelet Count 299 MPV 6.8(!) Granulocytes % 70.8 Lymphocyte % 20.5 Monocytes 6.8 Eosinophils 1.5 Basophils 0.4 Absolute Neut # 4.8 Absolute Lymph # 1.4 Absolute [place] # 0.5 Absolute Eos # 0.1 Basophils Absolute 0.0 [AD] 1453 Urinalysis(!): Glucose, UA Normal Total Protein, Urine Negative Bilirubin, Urine Negative Urobilinogen, Urine Normal pH, Urine 6.5 Specific [place], Urine 1.014 Occult Blood,Urine 0.2(!) Ketones, Urine [...] Creatinine 0.53 eGFR >90.0 EGFR IF NonAfrican Panamanian >90.0 Calcium 9.1 Albumin 4.0 Total Protein 6.8 Bilirubin 0.6 Alk Phos 80 ALT 16 AST 22 [AD] 1525 IMPRESSION: 1. Indeterminant small round well-defined hypodense left lobe liver lesion most likely a small cyst or hemangioma. 2. No evidence of other mass, focal fluid collection, lymphadenopathy or inflammatory process. [AD] [address] Rawls who is covering [...] [employer] Sam Calix MD 06/09/212050 Normal [facility] Hemogram (CBC) w/Auto DiffOr dered By: Michelle Stallings on 06-09-2021 Absolute Baso # 0.0 10*3/uL 0.0 - 0.2 10*3/uL [facility] Work Phone: [phone] Absolute Neut # 4.8 10*3/uL 1.8 - 7.0 10*3/uL [facility] Work Phone: Basophils/100 WBC (Bld) 0.4 % 0.0 - 2.0 % [facility] Work Phone: [phone] Eosinophils (Bld) [#/Vol] 0.1 10*3/uL 0.0 - 0.5 10*3/uL [facility] Work Phone: [phone] Eosinophils/100 WBC (Bld) 1.5 % 1.0 - 6.0 % [facility] Work Phone: Granulocytes/100 WBC (Bld) 70.8 % 40.0 - 80.0 % [facility] Work Phone: Hematocrit (Bld) [Volume fraction] 36.8 % 35.0 - 47.0 % [facility] Work Phone: [phone] Hemoglobin.gastrointe stinal spec 1 Ql (Stl) 11.5 g/dL Low 11.7 - 16.0 g/dL [facility] Work Phone: [phone] Interpretation and review of laboratory results Abnormal [facility] Work Phone: [phone] Lymphocytes (Bld) [#/Vol] 1.4 10*3/uL 1.0 - 4.3 10*3/uL [facility] Work Phone: [phone] Lymphocytes/100 WBC (Bld) 20.5 % 20.0 - 40.0 % [facility] Work Phone: MCH (RBC) [Entitic mass] 25.7 pg Low 26.0 - 34.0 pg [facility] Work Phone: MCHC (RBC) [Mass/Vol] 31.4 % Low 32.0 - 36.0 % [facility] Work Phone: MCV (RBC) [Entitic vol] 82.0 fL 79.0 - 98.0 fL [facility] Work Phone: Monocytes (Bld) [#/Vol] 0.5 10*3/uL 0.0 - 0.8 10*3/uL [facility] Work Phone: 22 Monocytes/100 WBC (Bld) 6.8 % 2.0 - 10.0 % [facility] Work Phone: Platelet distribution width (Bld) [Ratio] 16.8 % High 11.5 - 14.5 % [facility] Work Phone: Platelet mean volume (Bld) [Entitic vol] 6.8 fL Low 7.4 - 10.4 fL [facility] Work Phone: Platelets (Bld) [#/Vol] 299 10*3/uL 140 - 440 10*3/uL [facility] Work Phone: RBC (Bld) [#/Vol] 4.49 10*6/uL 3.80 - 5.2 0 10*6/uL [facility] Work Phone: WBC (Bld) [#/Vol] 6.8 10*3/uL 3.6 - 10.7 10*3/uL [facility] Work Phone: Test Performed by [address] [address] [facility] Work Phone: [facility] Work Phone: Hemogram w/ Autodiffon 06-09 Abs Baso Cnt 0.0 10*3/uL Normal 0.0-0.2 [facility] Comment on above: Performed By: #### C MP3, HEMDF #### [facility] [address] [place] [address] Abs Neutrophile Cnt 4.8 10*3/uL Normal 1.8-7.0 [facility] Comment on above: Performed By: #### C MP3, HEMDF #### [facility] [address] [place] [address] Basophils/100 WBC (Bld) 0.4 % Normal 0.0-2.0 [facility] Comment on above: Performed By: #### C MP3, HEMDF #### [place] [address] [place] [address] Eosinophils (Bld) [#/Vol] 0.1 10*3/uL Normal 0.0-0.5 [facility] Comment on above: Performed By: #### C MP3, HEMDF #### [facility] [employer] [facility] [address] [place] [address] Eosinophils/100 WBC (Bld) 1.5 % Normal 1.0-6.0 [facility] Comment on above: Performed By: #### C MP3, HEMDF #### [place] [address] [place] [address] Erythrocyte distribution width (RBC) [Ratio] 16.8 % High 11.5-14.5 [facility] Comment on above: Performed By: #### C MP3, HEMDF #### [facility] [employer] [facility] [address] [place] [address] Granulocytes/100 WBC (Bld) 70.8 % Normal 40.0-80.0 [facility] Comment on above: Performed By: #### C MP3, HEMDF #### [facility] [employer] [facility] [address] [place] [address] Hematocrit (Bld) [Volume fraction] 36.8 % Normal 35.0-47.0 [facility] Comment on above: Performed By: #### C MP3, HEMDF #### [facility] [address], [place] Hemoglobin (Bld) [Mass/Vol] 11.5 g/dL Low 11.7-16.0 [facility] Comment on above: Performed By: #### C MP3, HEMDF #### [place] [address] [place], [place] Lymphocytes (Bld) [#/Vol] 1.4 10*3/uL Normal 1.0-4.3 [facility] Comment on above: Performed By: #### C MP3, HEMDF #### [place] [address] [place], [place] Lymphocytes/100 WBC (Bld) 20.5 % Normal 20.0-40.0 [facility] Comment on above: Performed By: #### C MP3, HEMDF #### [place] [address] [place], [place] MCH (RBC) [Entitic mass] 25.7 pg Low 26.0-34.0 [facility] Comment on above: Performed By: #### C MP3, HEMDF #### [place] [address] [place], [place] MCHC 31.4 % Low 32.0-36.0 [facility] Comment on above: Performed By: #### C MP3, HEMDF #### [place] [address] [place], [place] MCV (RBC) [Entitic vol] 82.0 fL Normal 79.0-98.0 [facility] Comment on above: Performed By: #### C MP3, HEMDF #### [place] [address] [place], [place] Monocytes (Bld) [#/Vol] 0.5 10*3/uL Normal 0.0-0.8 [facility] Comment on above: Performed By: #### C MP3, HEMDF #### [place] [address] [address] [place], [place] Monocytes/100 WBC (Bld) 6.8 % Normal 2.0-10.0 [facility] Comment on above: Performed By: #### C MP3, HEMDF #### [facility] [address], [place] Platelet mean volume (Bld) [Entitic vol] 6.8 fL Low 7.4-10.4 [facility] [employer] Comment on above: Performed By: #### C MP3, HEMDF #### [facility] [employer] [facility] [address], [place] Platelets (Bld) [#/Vol] 299 10*3/uL Normal 140-440 [facility] [employer] Comment on above: Performed By: #### C MP3, HEMDF #### [facility] [employer] [facility] [address], [place] RBC (Bld) [#/Vol] 4.49 10*6/uL Normal 3.80-5.20 [facility] [employer] Comment on above: Performed By: #### C MP3, HEMDF #### [facility] [employer] [facility] [address], [place] WBC (Bld) [#/Vol] 6.8 10*3/uL Normal 3.6-10.7 [facility] [employer] Comment on above: Performed By: #### C MP3, HEMDF #### [facility] [employer] [facility] [address], [place] UrinalysisOrdered By: Michelle Stallings on 06-09-2021 Appearance (U) Turbid Abnormal Clear NA [facility] Work Phone: [phone] Comment on above: . Bacteria, UA Few Abnormal Negative /[HPF] [facility] Work Phone: [phone] Comment on above: . Bilirubin Urine Negative Negative mg/dL [facility] Work Phone: [phone] Comment on above: . Color (U) Light-Yellow Lt. Yellow NA [facility] Work Phone: [phone] Comment on above: . Glucose, Ur Normal Normal (<70) mg/dL [facility] Work Phone: [phone] Comment on above: . Hyaline Casts, UA Negative Negative /[LPF] [facility] Work Phone: [phone] Comment on above: . Interpretation and review of laboratory results Abnormal [facility] Work Phone: 1 Ketones Ql (U) Negative Negative mg/dL [facility] Work Phone: 1 Comment on above: . LEUKOCYTES, UA 500 Abnormal Negative Delmy/uL [facility] Work Phone: 1) Comment on above: . Mucous Threads Few Negative /[LPF] [facility] Work Phone: 1) Comment on above: . Nitrite, Urine Negative Negative NA [facility] Work Phone: 1) Comment on above: . Non-Squamous Epithelial 1 /[HPF] Abnormal Negative [facility] Work [facility]: 1) Comment on above: . Occult Blood,Urine 0.2 mg/dL Abnormal Negative [facility] Work Phone: 1) Comment on above: . pH (U) 6.5 [pH] [facility] Work Phone: 1 Comment on above: . RBC, UA 26-50 Abnormal 0 - 2 /[HPF] [facility] Work Phone: 1 Comment on above: . Specific [place], Urine 1.014 [facility] Work Phone: 1) Comment on above: . Squam Epithel, UA 11-25 Abnormal 3 - 5 /[HPF] [facility] Work Phone: 1 Comment on above: . Total Protein, Urine Negative Negativ e mg/dL [facility] Work Phone: 1 Comment on above: . Urobilinogen, Urine Normal Normal ( 0-1) mg/dL [facility] Work Phone: 1) Comment on above: . WBC, UA 51-100 Abnormal 0 - 5 /[HPF] [facility] Work Phone: 1) Comment on above: . Test Performed by [facility], [address] [place] [address] [facility] Work Phone: 1 [facility] Work Phone: 1 Vaginitis Panel PCRon 2020 Vaginitis Panel PCR Bacterial Vaginosis Markers PCR --> Status: F Negative Jojo spp. PCR --> Status: F Negative Jojo glabrata PCR --> Status: F Negative Jojo krusei PCR --> Status: F Negative Trichomonas vaginalis PCR --> Status: F Negative Expected Value: Negative Method: Real Time PCR by BD-MAX Expected Value: Negative Method: Real Time PCR by BD-MAX Normal [facility] Comment on above: Order Comment: Use U VE Collection Kit Performed By: #### V GPCR #### [facility] [employer] [address] [address] , [address] EKG 12 LeadOrdered By: Kim Ramirez on 05-17-2021 [facility] Test Date: 2021-05-16 Pat Name: LEELEE ZAMORA Department: [facility] Room: [facility] Gender: F Director Visual: SUE : 1995 Requested By: YEMI RAMIREZ Order Number: [id number] Reading MD: Yemi Zheng Measurements Intervals Hendrix Rate: 66 P: 41 HI: 154 QRS: 16 QRSD: 106 T: 9 QT: 414 QTc: 434 Interpretive Statements Sinus rhythm Normal EKG Electronically Signed On 05-17-2021 8:58:56 EDT by Yemi Zheng [facility] Work Phone: [place], [facility] Incoming Cardiology Results From [facility] - 05/17/2021 9:00 AM EDT [facility] Test Date: 2021-05-16 Pat Name: LEELEE ZAMORA Department: [facility] Room: [facility] Gender: F Director Visual: SUE : 1995 Requested By: YEMI RAMIREZ Order Number: [id number] [place] MD: Yemi Zheng Measurements Intervals [place] Rate: 66 P: 41 HI: 154 QRS: 16 QRSD: 106 T: 9 QT: 414 QTc: 434 Interpretive Statements Sinus rhythm Normal EKG Electronically Signed On 05-17-2021 8:58:56 EDT by Yemi Zheng [facility] Work Phone: [facility] Work Phone: Glucose,Bedsideon 05-16-2021 Glucose [Mass/Vol] 100 mg/dL Normal 70-100 [facility] [employer] [facility] Comment on above: Result Comment: Test performed by glucose meter. Results may be 10%-15% lower than serum/plasma values. (CLIA ID [id number]) Performed By: #### C MP3, HEMDF #### [facility] [address] [place] [address] OPERATIVE REPORTOrdered By: 3m Scanning on 05-16-2021 [facility] Work Phone: Op Noteon 05-16-2021 Op Note [...] to reapproximate the rectal sphincter in a [id number]-rbnyq fashion. The perineal body was then rebuilt [...] about 100 cc. cc: Julia Rodas M.D., POT ROOM TAPPER, [facility] Job ID: [id number] Yemi Ramirez MD DOD:05/16/2021 09:56 A /star DOT:05/16/2021 10:22 A Job Number: [id number] Document Number: [id number] cc: Yemi Ramirez MD [facility] [address] [facility] [address] Normal [facility] POCT GlucoseOrdered By: Michael Ramirez on 05-16-2021 Glucose [Mass/Vol] 100 mg/dL 70 - 100 mg/dL [facility] Work Phone: Comment on above: Test performed by gl ucose meter. Results may be 10%-15% lower than serum/plasma values. (CLIA ID [id number]) Test Performed by [facility], [address] [place] [address] [facility] Work Phone: [facility] Work Phone: Surgical Pathologyon 021 Surgical Pathology [phone] [facility] PATHOLOGY AND LABORATORY MEDICINE [address] [place] [address] FINAL SURGICAL PATHOLOGY REPORT NAME: LEELEE ZAMORA : 1995 26 Y F BILLING NO.: [id number] LOCATION: [facility] 5104 PROCEDURE 05/16/2021 DATE: SURGEON: YEMI RAMIREZ MD RECEIVED 05/16/2021 DATE: ATTENDING: YEMI RAMIREZ MD REPORT DATE: 05/17/2021 COPIES TO: DIAGNOSIS: BIOPSY, VAGINAL MUCOSA WITH EPISIOTOMY BREAKDOWN, RESECTION: - ACUTE INFLAMMATION WITH MARKED GRANULATION TISSUE, FOCAL NECROSIS, AND FIBRINOUS EXUDATE. - / Signature> ROSHAN PEÑA CLINICAL INFORMATION: Episiotomy breakdown, YARELI fistula SPECIMEN: VAGINAL MUCOSA GROSS DESCRIPTION: Received in formalin labeled vaginal mucosa are multiple fragments of pink to red soft tissue, the largest measuring 1 x 0.8 x 0.4 cm and is bisected and submitted as A1. The remaining tissue fragments aggregate to 1 x 1 x 0.4 cm and submitted as A2. BSC/KMS1 Disclaimer: The following statement applies to all immunohistochemistry, in situ hybridization, molecular studies, and immunofluorescence testing. The use of one or more reagents in the above tests is regulated as an analyte specific reagent (ASR). These tests were developed and their performance characteristics determined by the clinical laboratories of [facility]. They have not been cleared by [...] negativity on decalcified specimens. Professional Performing Location: [address] [address]. DEPARTMENT OF PATHOLOGY AND LABORATORY MEDICINE [place], [place] [address] [email or web address] Normal [facility] XR Elbow - right AP and Late ral and obliqueon 12-29-2020 IMPRESSION: No acute abnormality. Quality Control Tech: PSCB Transcribe Date/Time: Dec 29 2020 9:41A Dictated by : JULIA VILLALOBOS MD This examination was interpreted and the report reviewed and electronically signed by: JULIA VILLALOBOS MD on Dec 29 2020 9:42AM [facility] DIVISION OF RADIOLOGY * * *Final [...] tissues are unremarkable. DIVISION OF RADIOLOGY Provider, [facility] Stacy Darden - 12/29/2020 * * *Final Report* [...] are unremarkable. IMPRESSION IMPRESSION: No acute abnormality. Quality Control Tech: PSCB Transcribe Date/Time: Dec 29 2020 9:41A Dictated by : JULIA VILLALOBOS MD This examination was interpreted and the report reviewed and electronically signed by: JULIA VILLALOBOS MD on Dec 29 2020 9:42AM EST [facility] Radiology Study observation (narrative) [facility] XR Elbow - right AP and Late ral and obliqueOrdered By: Ccf Provider on 12-29-2020 [facility] Office Visit: S/P Neoplasm r emoval 01/30/1702-10-2017 Dietary management education, guidance, and counseling (procedure) yes Invalid Interpretation Code [facility] [employer] Work Phone: Documentation of current medications (procedure) Done Invalid Interpretation Code [facility] [employer] Work Phone: Fall risk assessment No Invalid Interpretation Code [facility] [employer] Work Phone: Tobacco smoking status NHIS Never Invalid Interpretation Code [facility] [employer] Work Phone: Tobacco use HS Never smoker Invalid Interpretation Code [facility] [employer] Work Phone: Lab Report: CUTon 06-27-2012 throat culture ORGANISM 1: GROUP C BETA STREPTOCOCCUS Invalid Interpretation Code [facility] [employer] Work Phone: OCT OPTIC NERVE CIRRUS OU (B OTH EYES) [facility] Vital Signs Date Time Vital Sign Value Performing Clinician Facility 06-18-2025 18:29-0400 Body temperature 97.8 [degF] Dr. Alfredo Barroso MD Work Phone: [facility] 06-18-2025 18:29-0400 Diastolic blood pressure 81 mm[Hg] Dr. Alfredo Barroso MD Work Phone: [facility] 06-18-2025 18:29-0400 Heart rate 91 /min Dr. Alfredo Barroso MD Work Phone: [phone] [place] [address] 06-18-2025 18:29-0400 Respiratory rate 16 /min Dr. Alfredo Barroso MD Work Phone: [phone] [place] [address] 06-18-2025 18:29-0400 SaO2% (BldA) [Mass fraction] 99 % Dr. Alfredo Barroso MD Work Phone: [phone] [place] [address] 06-18-2025 18:29-0400 Systolic blood pressure 141 mm[Hg] Dr. Alfredo Barroso MD Work Phone: [phone] [place] [address] 06-18-2025 17:34-0400 Body height 157.[address] Alfredo Barroso MD Work Phone: [phone] [place] [address] 06-18-2025 17:34-0400 Body mass index (BMI) [Ratio] 47.5 kg/m2 Dr. Alfredo Barroso MD Work Phone: [phone] [place] [address] 06-18-2025 17:34-0400 Body weight 117.[address] Alfredo Barroso MD Work Phone: [phone] [place] [address] 06-09-2025 10:37-0400 Body mass index (BMI) [Ratio] 47.02 kg/m2 Krislyn Aberegg PA Work Phone: [facility] 06-09-2025 10:37-0400 Body temperature 97.9 [degF] Krislyn Aberegg PA Work Phone: [facility] 06-09-2025 10:37-0400 Body weight 116.6 kg Krislyn Aberegg PA Work Phone: [facility] 06-09-2025 10:37-0400 Diastolic blood pressure 72 mm[Hg] Krislyn Aberegg PA Work Phone: [facility] 06-09-2025 10:37-0400 Heart rate 90 /min Krislyn Aberegg PA Work Phone: [facility] 06-09-2025 10:37-0400 Respiratory rate 16 /min Krislyn Aberegg PA Work Phone: [facility] 06-09-2025 10:37-0400 SaO2% (BldA) [Mass fraction] 99 % Krislyn Aberegg PA Work Phone: [facility] 06-09-2025 10:37-0400 Systolic blood pressure 128 mm[Hg] Krislyn Aberegg PA Work Phone: [facility] 05-08-2025 15:51-0400 Body height 157.5 cm Marietta Lugo MD Work Phone: [facility] 05-08-2025 15:51-0400 Body mass index (BMI) [Ratio] 47.92 kg/m2 Marietta Lugo MD Work Phone: [facility] 05-08-2025 15:51-0400 Body weight 118.84 kg Marietta Lugo MD Work Phone: [facility] 05-08-2025 15:51-0400 Diastolic blood pressure 84 mm[Hg] Marietta Lugo MD Work Phone: [facility] 05-08-2025 15:51-0400 Systolic blood pressure 126 mm[Hg] Marietta Lugo MD Work Phone: [facility] 04-05-2025 07:57-0400 Body mass index (BMI) [Ratio] 48.47 kg/m2 Christofer Ayala MD Work Phone: [facility] 04-05-2025 07:57-0400 Body weight 120.2 kg Christofer Ayala MD Work Phone: [facility] 04-05-2025 07:57-0400 Diastolic blood pressure 74 mm[Hg] Christofer Ayala MD Work Phone: [facility] 04-05-2025 07:57-0400 Systolic blood pressure 118 mm[Hg] Christofer Ayala MD Work Phone: [facility] 03-28-2025 14:32-0400 Body mass index (BMI) [Ratio] 50.08 kg/m2 Tahmina Dumont MD Work Phone: [facility] 03-28-2025 14:32-0400 Body weight 124.19 kg Tahmina Dumont MD Work Phone: [facility] 03-28-2025 14:32-0400 Diastolic blood pressure 80 mm[Hg] Tahmina Dumont MD Work Phone: [facility] 03-28-2025 14:32-0400 Systolic blood pressure 120 mm[Hg] Tahmina Dumont MD Work Phone: [facility] 03-21-2025 12:36-0400 Body mass index (BMI) [Ratio] 50.37 kg/m2 Tahmina Dumont MD Work Phone: [facility] 03-21-2025 12:36-0400 Body weight 124.92 kg Tahmina Dumont MD Work Phone: [facility] 03-21-2025 12:36-0400 Diastolic blood pressure 81 mm[Hg] Tahmina Dumont MD Work Phone: [facility] 03-21-2025 12:36-0400 Systolic blood pressure 127 mm[Hg] Tahmina Dumont MD Work Phone: [facility] 03-14-2025 13:50-0400 Body mass index (BMI) [Ratio] 50.92 kg/m2 Tahmina Dumont MD Work Phone: [facility] 03-14-2025 13:50-0400 Body weight 126.28 kg Tahmina Dumont MD Work Phone: [facility] 03-14-2025 13:50-0400 Diastolic blood pressure 77 mm[Hg] Tahmina Dumont MD Work Phone: [facility] 03-14-2025 13:50-0400 Systolic blood pressure 122 mm[Hg] Tahmina Dumont MD Work Phone: [facility] 03-07-2025 14:18-0400 Body mass index (BMI) [Ratio] 49.93 kg/m2 Marietta Lugo MD Work Phone: [facility] 03-07-2025 14:18-0400 Body weight 123.83 kg Marietta Lugo MD Work Phone: [facility] 03-07-2025 14:18-0400 Diastolic blood pressure 80 mm[Hg] Marietta Lugo MD Work Phone: [facility] 03-07-2025 14:18-0400 Systolic blood pressure 126 mm[Hg] Marietta Lugo MD Work Phone: [facility] 03-02-2025 16:07-0400 Diastolic blood pressure 73 mm[Hg] Dr. Alfredo Barroso MD Work Phone: [phone] [place] [address] 03-02-2025 16:07-0400 Heart rate 98 /min Dr. Alfredo Barroso MD Work Phone: [phone] [place] [address] 03-02-2025 16:07-0400 Systolic blood pressure 121 mm[Hg] Dr. Alfredo Barroso MD Work Phone: [phone] [place] [address] 03-02-2025 15:06-0400 Body mass index (BMI) [Ratio] 49.7 kg/m2 Dr. Alfredo Barroso MD Work Phone: [phone] [place] [address] 03-02-2025 15:06-0400 Body weight 123.[address] Alfredo Barroso MD Work Phone: 6(163)500-109913 [place] [address] 03-02-2025 14:45-0400 Body temperature 98 [degF] Dr. Alfredo Barroso MD Work Phone: 2(095)215-151113 [place] [address] 03-02-2025 14:45-0400 Respiratory rate 13 /min Dr. Alfredo Barroso MD Work Phone: 9(690)810-104513 [place] [address] 03-02-2025 14:45-0400 SaO2% (BldA) [Mass fraction] 98 % Dr. Alfredo Barroso MD Work Phone: [facility] 02-21-2025 13:34-0400 Body mass index (BMI) [Ratio] 49.64 kg/m2 [facility] 02-21-2025 13:34-0400 Body weight 123.11 kg [facility] 02-21-2025 13:34-0400 Diastolic blood pressure 60 mm[Hg] [facility] 02-21-2025 13:34-0400 Systolic blood pressure 124 mm[Hg] [facility] 02-16-2025 11:08-0400 Body mass index (BMI) [Ratio] 48.47 kg/m2 Topher Schuler MD Work Phone: [facility] 02-16-2025 11:08-0400 Body weight 120.2 kg Topher Schuler MD Work Phone: [facility] 02-16-2025 11:08-0400 Diastolic blood pressure 80 mm[Hg] Topher Schuler MD Work Phone: [facility] 02-16-2025 11:08-0400 Systolic blood pressure 126 mm[Hg] Topher Schuler MD Work Phone: [facility] 02-15-2025 10:23-0400 Body mass index (BMI) [Ratio] 49.2 kg/m2 Topher Schuler MD Work Phone: [facility] 02-15-2025 10:23-0400 Body weight 122.02 kg Topher Schuler MD Work Phone: [facility] 02-15-2025 10:23-0400 Diastolic blood pressure 60 mm[Hg] Topher Schuler MD Work Phone: [facility] 02-15-2025 10:23-0400 Systolic blood pressure 114 mm[Hg] Topher Schuler MD Work Phone: [facility] 02-06-2025 13:47-0400 Body mass index (BMI) [Ratio] 49.02 kg/m2 Britney Griffin MD Work Phone: [facility] 02-06-2025 13:47-0400 Body weight 121.56 kg Britney Griffin MD Work Phone: [facility] 02-06-2025 13:47-0400 Diastolic blood pressure 76 mm[Hg] Britney Griffin MD Work Phone: [facility] 02-06-2025 13:47-0400 Systolic blood pressure 124 mm[Hg] Britney Griffin MD Work Phone: [facility] 01-20-2025 11:37-0400 Body mass index (BMI) [Ratio] 48.29 kg/m2 Marietta Lugo MD Work Phone: [facility] 01-20-2025 11:37-0400 Body weight 119.75 kg Marietta Lugo MD Work Phone: [facility] 01-20-2025 11:37-0400 Diastolic blood pressure 60 mm[Hg] Marietta Lugo MD Work Phone: [facility] 01-20-2025 11:37-0400 Systolic blood pressure 120 mm[Hg] Marietta Lugo MD Work Phone: [facility] 01-10-2025 11:21-0400 Body mass index (BMI) [Ratio] 47.92 kg/m2 Christofer Ayala MD Work Phone: [facility] 01-10-2025 11:21-0400 Body weight 118.84 kg Christofer Ayala MD Work Phone: [facility] 01-10-2025 11:21-0400 Diastolic blood pressure 78 mm[Hg] Christofer Ayala MD Work Phone: [facility] 01-10-2025 11:21-0400 Systolic blood pressure 124 mm[Hg] Christofer Ayala MD Work Phone: [facility] 01-09-2025 12:58-0400 Body height 157.[address] Alfredo Barroso MD Work Phone: 4(861)371-140442 [place] [address] 01-09-2025 12:58-0400 Body mass index (BMI) [Ratio] 48.1 kg/m2 Dr. Alfredo Barroso MD Work Phone: 7(940)605-851042 [place] [address] 01-09-2025 12:58-0400 Body weight 119.[address] Alfredo Barroso MD Work Phone: 2(756)477-170042 [place] [address] 01-09-2025 12:36-0400 Diastolic blood pressure 56 mm[Hg] Dr. Alfredo Barroso MD Work Phone: 6(150)978-680742 [place] [address] 01-09-2025 12:36-0400 Heart rate 75 /min Dr. Alfredo Barroso MD Work Phone: 0(213)301-569942 [place] [address] 01-09-2025 12:36-0400 Systolic blood pressure 119 mm[Hg] Dr. Alfredo Barroso MD Work Phone: 3(093)267-272542 [place] [address] 01-09-2025 12:34-0400 Body temperature 98.5 [degF] Dr. Alfredo Barroso MD Work Phone: 2(854)334-480142 [place] [address] 01-09-2025 12:34-0400 Respiratory rate 16 /min Dr. Alfredo Barroso MD Work Phone: 2(591)007-236542 [place] [address] 01-05-2025 13:07-0400 Heart rate 74 /min Dr. Alfredo Barroso MD Work Phone: 0(304)292-075642 [place] [address] 01-05-2025 13:07-0400 SaO2% (BldA) [Mass fraction] 98 % Dr. Alfredo Barroso MD Work Phone: 7(562)697-703442 [place] [address] 01-05-2025 10:23-0400 Body height 157.[address] Alfredo Barroso MD Work Phone: 9(146)357-283242 [place] [address] 01-05-2025 10:23-0400 Body mass index (BMI) [Ratio] 48.1 kg/m2 Dr. Alfredo Barroso MD Work Phone: [facility] 01-05-2025 10:23-0400 Body weight 119.[address] Alfredo Barroso MD Work Phone: 9(063)250-684313 [place] [address] 01-05-2025 10:17-0400 Body temperature 98.7 [degF] Dr. Alfredo Barroso MD Work Phone: 3(137)398-567513 [place] [address] 01-05-2025 10:17-0400 Diastolic blood pressure 79 mm[Hg] Dr. Alfredo Barroso MD Work Phone: 9(896)155-674842 [place] [address] 01-05-2025 10:17-0400 Respiratory rate 16 /min Dr. Alfredo Barroso MD Work Phone: 9(972)950-827342 [place] [address] 01-05-2025 10:17-0400 Systolic blood pressure 141 mm[Hg] Dr. Alfredo Barroso MD Work Phone: 4(035)812-885113 [place] [address] 12-15-2024 11:22-0500 Body mass index (BMI) [Ratio] 46.82 kg/m2 Marietta Lugo MD Work Phone: [facility] 12-15-2024 11:22-0500 Body weight 116.12 kg Marietta Lugo MD Work Phone: [facility] 12-15-2024 11:22-0500 Diastolic blood pressure 76 mm[Hg] Marietta Lugo MD Work Phone: [facility] 12-15-2024 11:22-0500 Systolic blood pressure 110 mm[Hg] Marietta Lugo MD Work Phone: [facility] 11-15-2024 15:11-0500 Body mass index (BMI) [Ratio] 43.75 kg/m2 Tahmina Dumont MD Work Phone: [facility] 11-15-2024 15:11-0500 Body weight 108.5 kg Tahmina Dumont MD Work Phone: [facility] 11-15-2024 15:11-0500 Diastolic blood pressure 72 mm[Hg] Tahmina Dumont MD Work Phone: 2(585)878-925242 [place] [address] 11-15-2024 15:11-0500 Systolic blood pressure 118 mm[Hg] Tahmina Dumont MD Work Phone: 4(240)512-014742 [place] [address] 10-30-2024 06:06-0500 Body temperature 98 [degF] Dr. Alfredo Barroso MD Work Phone: 9(007)045-444442 [place] [address] 10-30-2024 06:06-0500 Diastolic blood pressure 66 mm[Hg] Dr. Alfredo Barroso MD Work Phone: 9(676)307-362442 [place] [address] 10-30-2024 06:06-0500 Heart rate 88 /min Dr. Alfredo Barroso MD Work Phone: 6(752)512-779442 [place] [address] 10-30-2024 06:06-0500 Respiratory rate 16 /min Dr. Alfredo Barroso MD Work Phone: 7(147)224-922442 [place] [address] 10-30-2024 06:06-0500 SaO2% (BldA) [Mass fraction] 99 % Dr. Alfredo Barroso MD Work Phone: 3(503)776-451742 [place] [address] 10-30-2024 06:06-0500 Systolic blood pressure 112 mm[Hg] Dr. Alfredo Barroso MD Work Phone: 1(277)791-863142 [place] [address] 10-30-2024 04:18-0500 Body mass index (BMI) [Ratio] 44.1 kg/m2 Dr. Alfredo Barroso MD Work Phone: 6(479)024-998242 [place] [address] 10-30-2024 04:18-0500 Body weight [address] Alfredo Barroso MD Work Phone: 0(662)384-571642 [place] [address] 10-25-2024 21:07-0500 Body mass index (BMI) [Ratio] 44.1 kg/m2 Dr. Alfredo Barroso MD Work Phone: 9(861)747-422242 [place] [address] 10-25-2024 21:07-0500 Body temperature 97.8 [degF] Dr. Alfredo Barroso MD Work Phone: 0(374)529-732742 [place] [address] 10-25-2024 21:07-0500 Body weight 109.[address] Alfredo Barroso MD Work Phone: [facility] 10-25-2024 21:07-0500 Diastolic blood pressure 82 mm[Hg] Dr. Alfredo Barroso MD Work Phone: [facility] 10-25-2024 21:07-0500 Heart rate 89 /min Dr. Alfredo Barroso MD Work Phone: [facility] 10-25-2024 21:07-0500 Respiratory rate 18 /min Dr. Alfredo Barroso MD Work Phone: [facility] 10-25-2024 21:07-0500 SaO2% (BldA) [Mass fraction] 99 % Dr. Alfredo Barroso MD Work Phone: [facility] 10-25-2024 21:07-0500 Systolic blood pressure 137 mm[Hg] Dr. Alfredo Barroso MD Work Phone: [facility] 10-20-2024 10:24-0500 Body mass index (BMI) [Ratio] 43.02 kg/m2 Tahmina Dumont MD Work Phone: [facility] 10-20-2024 10:24-0500 Body weight 106.69 kg Tahmina Dumont MD Work Phone: [facility] 10-20-2024 10:24-0500 Diastolic blood pressure 74 mm[Hg] Tahmina Dumont MD Work Phone: [facility] 10-20-2024 10:24-0500 Systolic blood pressure 120 mm[Hg] Tahmina Dumont MD Work Phone: [facility] 10-12-2024 15:01-0500 Body mass index (BMI) [Ratio] 42.98 kg/m2 Nuno SAXENA-C Work Phone: [facility] 10-12-2024 15:01-0500 Body temperature 98.01 [degF] Nuno Madrid PA-C Work Phone: [facility] 10-12-2024 15:01-0500 Body weight 106.6 kg Nuno Wormald PA-C Work Phone: [facility] 10-12-2024 15:01-0500 Diastolic blood pressure 81 mm[Hg] Nuno Wormald PA-C Work Phone: [facility] 10-12-2024 15:01-0500 Heart rate 83 /min Nuno Wormald PA-C Work Phone: [facility] 10-12-2024 15:01-0500 Respiratory rate 18 /min Nuno Wormald PA-C Work Phone: [facility] 10-12-2024 15:01-0500 SaO2% (BldA) [Mass fraction] 100 % Nuno Wormald PA-C Work Phone: [facility] 10-12-2024 15:01-0500 Systolic blood pressure 117 mm[Hg] Nuno Wormald PA-C Work Phone: [facility] 10-12-2024 08:54-0500 Body mass index (BMI) [Ratio] 41.2 kg/m2 Dr. Alfredo Barroso MD Work Phone: [facility] 10-12-2024 08:54-0500 Body temperature 98.7 [degF] Dr. Alfredo Barroso MD Work Phone: [facility] 10-12-2024 08:54-0500 Body weight 102.[address] Alfredo Barroso MD Work Phone: [facility] 10-12-2024 08:54-0500 Diastolic blood pressure 70 mm[Hg] Dr. Alfredo Barroso MD Work Phone: [facility] 10-12-2024 08:54-0500 Heart rate 84 /min Dr. Alfredo Barroso MD Work Phone: [facility] 10-12-2024 08:54-0500 Respiratory rate 18 /min Dr. Alfredo Barroso MD Work Phone: [facility] 10-12-2024 08:54-0500 SaO2% (BldA) [Mass fraction] 98 % Dr. Alfredo Barroos MD Work Phone: 1(962)698-873213 [place] [address] 10-12-2024 08:54-0500 Systolic blood pressure 123 mm[Hg] Dr. Alfredo Barroso MD Work Phone: 9(226)168-234242 [place] [address] 09-28-2024 14:50-0500 Body mass index (BMI) [Ratio] 41.3 kg/m2 Dr. Alfredo Barroso MD Work Phone: 5(392)542-717942 [place] [address] 09-28-2024 14:50-0500 Body weight 102.[address] Alfredo Barroso MD Work Phone: 3(178)945-060642 [place] [address] 09-28-2024 14:50-0500 Diastolic blood pressure 76 mm[Hg] Dr. Alfredo Barroso MD Work Phone: 9(128)277-215242 [place] [address] 09-28-2024 14:50-0500 Heart rate 82 /min Dr. Alfredo Barroso MD Work Phone: 4(118)956-618942 [place] [address] 09-28-2024 14:50-0500 Respiratory rate 16 /min Dr. Alfredo Barroso MD Work Phone: 0(625)428-054242 [place] [address] 09-28-2024 14:50-0500 Systolic blood pressure 121 mm[Hg] Dr. Alfredo Barroso MD Work Phone: 7(877)766-762942 [place] [address] 09-19-2024 08:48-0500 Body mass index (BMI) [Ratio] 40.97 kg/m2 Stephani Aaron APRN.WALKING DRAGLINE OPERATOR Work Phone: 6(995)219-599678 [place] [address] 09-19-2024 08:48-0500 Body weight 101.61 kg Stephani Aaron APRN.WALKING DRAGLINE OPERATOR Work Phone: [facility] 09-19-2024 08:48-0500 Diastolic blood pressure 60 mm[Hg] Stephani Aaron APRN.WALKING DRAGLINE OPERATOR Work Phone: [facility] 09-19-2024 08:48-0500 Systolic blood pressure 110 mm[Hg] Stephani Aaron APRN.WALKING DRAGLINE OPERATOR Work Phone: [facility] 09-15-2024 12:21-0500 Body mass index (BMI) [Ratio] 41.13 kg/m2 Krislyn Aberegg PA Work Phone: [facility] 09-15-2024 12:21-0500 Body temperature 98.2 [degF] Krislyn Aberegg PA Work Phone: [facility] 09-15-2024 12:21-0500 Body weight 102 kg Krislyn Aberegg PA Work Phone: [facility] 09-15-2024 12:21-0500 Diastolic blood pressure 58 mm[Hg] Krislyn Aberegg PA Work Phone: [facility] 09-15-2024 12:21-0500 Heart rate 87 /min Krislyn Aberegg PA Work Phone: [facility] 09-15-2024 12:21-0500 Respiratory rate 20 /min Krislyn Aberegg PA Work Phone: [facility] 09-15-2024 12:21-0500 SaO2% (BldA) [Mass fraction] 97 % Krislyn Aberegg PA Work Phone: [facility] 09-15-2024 12:21-0500 Systolic blood pressure 101 mm[Hg] Krislyn Aberegg PA Work Phone: [facility] 08-18-2024 08:17-0500 Body height 157.5 cm Jammie Marin CHUTE BUILDER.WALKING DRAGLINE OPERATOR Work Phone: [facility] 08-18-2024 08:17-0500 Body mass index (BMI) [Ratio] 39.47 kg/m2 Jammie Marin CHUTE BUILDER.WALKING DRAGLINE OPERATOR Work Phone: [facility] 08-18-2024 08:17-0500 Body weight 97.89 kg Jammie Midway CHUTE BUILDER.WALKING DRAGLINE OPERATOR Work Phone: [facility] 08-18-2024 08:17-0500 Diastolic blood pressure 64 mm[Hg] Jammie Midway CHUTE BUILDER.WALKING DRAGLINE OPERATOR Work Phone: [facility] 08-18-2024 08:17-0500 Systolic blood pressure 118 mm[Hg] Jammie Funes APRN.WALKING DRAGLINE OPERATOR Work Phone: [facility] 07-25-2024 13:03-0400 Body mass index (BMI) [Ratio] 37.31 kg/m2 Angela Paul MD Work Phone: [facility] 07-25-2024 13:03-0400 Body weight 92.53 kg Angela Paul MD Work Phone: [facility] 07-25-2024 13:03-0400 Diastolic blood pressure 60 mm[Hg] Angela Paul MD Work Phone: [facility] 07-25-2024 13:03-0400 Systolic blood pressure 128 mm[Hg] Angela Paul MD Work Phone: [facility] 07-12-2024 10:54-0400 Body mass index (BMI) [Ratio] 36.94 kg/m2 Angi Santos MD Work Phone: [facility] 07-12-2024 10:54-0400 Body temperature 98.01 [degF] Angi Santos MD Work Phone: [facility] 07-12-2024 10:54-0400 Body weight 91.6 kg Angi Santos MD Work Phone: [facility] 07-12-2024 10:54-0400 Diastolic blood pressure 88 mm[Hg] Angi Santos MD Work Phone: [facility] 07-12-2024 10:54-0400 Heart rate 75 /min Angi Santos MD Work Phone: [facility] 07-12-2024 10:54-0400 Respiratory rate 18 /min Angi Santos MD Work Phone: [facility] 07-12-2024 10:54-0400 SaO2% (BldA) [Mass fraction] 100 % Angi Santos MD Work Phone: [facility] 07-12-2024 10:54-0400 Systolic blood pressure 108 mm[Hg] Angi Santos MD Work Phone: [facility] 06-27-2024 14:12-0400 Body height 157.5 cm Darlin Fleming CHUTE BUILDER.WALKING DRAGLINE OPERATOR Work Phone: [facility] 06-27-2024 14:12-0400 Body mass index (BMI) [Ratio] 36.18 kg/m2 Darlin Fleming CHUTE BUILDER.WALKING DRAGLINE OPERATOR Work Phone: [facility] 06-27-2024 14:12-0400 Body temperature 97.9 [degF] Darlin Fleming CHUTE BUILDER.WALKING DRAGLINE OPERATOR Work Phone: [facility] 06-27-2024 14:12-0400 Body weight 89.72 kg Darlin Fleming CHUTE BUILDER.WALKING DRAGLINE OPERATOR Work Phone: [facility] 06-27-2024 14:12-0400 Diastolic blood pressure 67 mm[Hg] Darlin Fleming CHUTE BUILDER.WALKING DRAGLINE OPERATOR Work Phone: [facility] 06-27-2024 14:12-0400 Heart rate 81 /min Darlin Fleming CHUTE BUILDER.WALKING DRAGLINE OPERATOR Work Phone: [facility] 06-27-2024 14:12-0400 Systolic blood pressure 114 mm[Hg] Darlin Fleming CHUTE BUILDER.WALKING DRAGLINE OPERATOR Work Phone: [facility] 06-25-2024 09:33-0400 Body mass index (BMI) [Ratio] 37.13 kg/m2 Laurie Florentino CHUTE BUILDER.WALKING DRAGLINE OPERATOR Work Phone: [facility] 06-25-2024 09:33-0400 Body temperature 97.3 [degF] Laurie Reyes-Ugo CHUTE BUILDER.WALKING DRAGLINE OPERATOR Work Phone: [facility] 06-25-2024 09:33-0400 Body weight 92.1 kg Laurie Florentino CHUTE BUILDER.WALKING DRAGLINE OPERATOR Work Phone: [facility] 06-25-2024 09:33-0400 Diastolic blood pressure 84 mm[Hg] Laurie Dumontler-Ugo CHUTE BUILDER.WALKING DRAGLINE OPERATOR Work Phone: [facility] 06-25-2024 09:33-0400 Heart rate 79 /min Laurie Dumontler-Wood CHUTE BUILDER.WALKING DRAGLINE OPERATOR Work Phone: [facility] 06-25-2024 09:33-0400 Respiratory rate 16 /min Laurie Dumontler-Ugo CHUTE BUILDER.WALKING DRAGLINE OPERATOR Work Phone: [facility] 06-25-2024 09:33-0400 SaO2% (BldA) [Mass fraction] 99 % Laurie Allredistanya-Ugo CHUTE BUILDER.WALKING DRAGLINE OPERATOR Work Phone: [facility] 06-25-2024 09:33-0400 Systolic blood pressure 128 mm[Hg] Laurie Allredisler-Ugo CHUTE BUILDER.WALKING DRAGLINE OPERATOR Work Phone: [facility] 06-06-2024 15:45-0400 Body mass index (BMI) [Ratio] 36.75 kg/m2 Cooper Gastelum CHUTE BUILDER.WALKING DRAGLINE OPERATOR Work Phone: [facility] 06-06-2024 15:45-0400 Body weight 91.17 kg Cooper Gastelum CHUTE BUILDER.WALKING DRAGLINE OPERATOR Work Phone: [facility] 06-06-2024 15:45-0400 Diastolic blood pressure 68 mm[Hg] Cooper Gastelum CHUTE BUILDER.WALKING DRAGLINE OPERATOR Work Phone: [facility] 06-06-2024 15:45-0400 Heart rate 79 /min Cooper Gastelum CHUTE BUILDER.WALKING DRAGLINE OPERATOR Work Phone: [facility] 06-06-2024 15:45-0400 Respiratory rate 14 /min Cooper Gastelum CHUTE BUILDER.WALKING DRAGLINE OPERATOR Work Phone: [facility] 06-06-2024 15:45-0400 Systolic blood pressure 101 mm[Hg] Cooper Gastelum CHUTE BUILDER.WALKING DRAGLINE OPERATOR Work Phone: [facility] 05-11-2024 09:33-0400 Body mass index (BMI) [Ratio] 37.25 kg/m2 Sandhya Aguilar CHUTE BUILDER.WALKING DRAGLINE OPERATOR Work Phone: [facility] 05-11-2024 09:33-0400 Body temperature 97.39 [degF] Sandhya Aguilar CHUTE BUILDER.WALKING DRAGLINE OPERATOR Work Phone: [facility] 05-11-2024 09:33-0400 Body weight 92.4 kg Sandhya Aguilar CHUTE BUILDER.WALKING DRAGLINE OPERATOR Work Phone: [facility] 05-11-2024 09:33-0400 Diastolic blood pressure 80 mm[Hg] Sandhya Aguilar CHUTE BUILDER.WALKING DRAGLINE OPERATOR Work Phone: [facility] 05-11-2024 09:33-0400 Heart rate 80 /min Sandhya Aguilar CHUTE BUILDER.WALKING DRAGLINE OPERATOR Work Phone: [facility] 05-11-2024 09:33-0400 Respiratory rate 19 /min Sandhya Aguilar CHUTE BUILDER.WALKING DRAGLINE OPERATOR Work Phone: [facility] 05-11-2024 09:33-0400 SaO2% (BldA) [Mass fraction] 99 % Sandhya Aguilar CHUTE BUILDER.WALKING DRAGLINE OPERATOR Work Phone: [facility] 05-11-2024 09:33-0400 Systolic blood pressure 120 mm[Hg] Sandhya Aguilar CHUTE BUILDER.WALKING DRAGLINE OPERATOR Work Phone: [facility] 02-25-2024 13:19-0400 Body mass index (BMI) [Ratio] 38.22 kg/m2 Keri Victor Manuel CHUTE BUILDER.WALKING DRAGLINE OPERATOR Work Phone: [facility] 02-25-2024 13:19-0400 Body weight 94.8 kg Keri Victor Manuel CHUTE BUILDER.WALKING DRAGLINE OPERATOR Work Phone: [facility] 02-25-2024 13:19-0400 Diastolic blood pressure 76 mm[Hg] Keri Victor Manuel CHUTE BUILDER.WALKING DRAGLINE OPERATOR Work Phone: [facility] 02-25-2024 13:19-0400 Heart rate 106 /min Keri Victor Manuel CHUTE BUILDER.WALKING DRAGLINE OPERATOR Work Phone: [facility] 02-25-2024 13:19-0400 Respiratory rate 18 /min Keri Rush CHUTE BUILDER.WALKING DRAGLINE OPERATOR Work Phone: [facility] 02-25-2024 13:19-0400 SaO2% (BldA) [Mass fraction] 98 % Keri Rush CHUTE BUILDER.WALKING DRAGLINE OPERATOR Work Phone: [facility] 02-25-2024 13:19-0400 Systolic blood pressure 138 mm[Hg] Keri Rush CHUTE BUILDER.WALKING DRAGLINE OPERATOR Work Phone: [facility] 02-16-2024 15:32-0400 Body height 157.5 cm Raiza Brasher MD Work Phone: [facility] 02-16-2024 15:32-0400 Body mass index (BMI) [Ratio] 38.7 kg/m2 Raiza Brasher MD Work Phone: [facility] 02-16-2024 15:32-0400 Body weight 96 kg Raiza Brasher MD Work Phone: [facility] 02-16-2024 15:32-0400 Diastolic blood pressure 69 mm[Hg] Raiza Brasher MD Work Phone: [facility] 02-16-2024 15:32-0400 Heart rate 94 /min Raiza Brasher MD Work Phone: [facility] 02-16-2024 15:32-0400 Respiratory rate 16 /min Raiza Brasher MD Work Phone: [facility] 02-16-2024 15:32-0400 Systolic blood pressure 131 mm[Hg] Raiza Brasher MD Work Phone: [facility] 02-02-2024 13:53-0400 Body mass index (BMI) [Ratio] 37.89 kg/m2 Maryann Matias PA-C Work Phone: [facility] 02-02-2024 13:53-0400 Body temperature 98.8 [degF] Maryann Matias PA-C Work Phone: [facility] 02-02-2024 13:53-0400 Body weight 94 kg Maryann Athy PA-C Work Phone: [facility] 02-02-2024 13:53-0400 Diastolic blood pressure 70 mm[Hg] Maryann Athy PA-C Work Phone: [facility] 02-02-2024 13:53-0400 Heart rate 104 /min Maryann Athy PA-C Work Phone: [facility] 02-02-2024 13:53-0400 Respiratory rate 18 /min Maryann Athy PA-C Work Phone: [facility] 02-02-2024 13:53-0400 SaO2% (BldA) [Mass fraction] 99 % Maryann Athy PA-C Work Phone: [facility] 02-02-2024 13:53-0400 Systolic blood pressure 122 mm[Hg] Maryann Athy PA-C Work Phone: [facility] 01-27-2024 11:44-0400 Body temperature 98.91 [degF] Michael Alonzo CHUTE BUILDER.WALKING DRAGLINE OPERATOR Work Phone: [facility] 01-27-2024 11:44-0400 Body weight 95 kg Michael Alonzo CHUTE BUILDER.WALKING DRAGLINE OPERATOR Work Phone: [facility] 01-27-2024 11:44-0400 Diastolic blood pressure 82 mm[Hg] Michael Alonzo CHUTE BUILDER.WALKING DRAGLINE OPERATOR Work Phone: [facility] 01-27-2024 11:44-0400 Heart rate 91 /min Michael Alonzo CHUTE BUILDER.WALKING DRAGLINE OPERATOR Work Phone: [facility] 01-27-2024 11:44-0400 Respiratory rate 18 /min Michael Alonzo CHUTE BUILDER.WALKING DRAGLINE OPERATOR Work Phone: [facility] 01-27-2024 11:44-0400 SaO2% (BldA) [Mass fraction] 97 % Michael Alonzo CHUTE BUILDER.WALKING DRAGLINE OPERATOR Work Phone: [facility] 01-27-2024 11:44-0400 Systolic blood pressure 128 mm[Hg] [address] Work Phone: [facility] 12-09-2023 12:37-0500 Body temperature 98.71 [degF] Krislyn Aberegg PA Work Phone: [facility] 12-09-2023 12:37-0500 Body weight 96.8 kg Krislyn Aberegg PA [facility] [facility] 12-09-2023 12:37-0500 Diastolic blood pressure 82 mm[Hg] Krislyn Aberegg PA Work Phone: [facility] 12-09-2023 12:37-0500 Heart rate 98 /min Krislyn Aberegg PA Work Phone: [facility] 12-09-2023 12:37-0500 Respiratory rate 18 /min Krislyn Aberegg PA Work Phone: [facility] 12-09-2023 12:37-0500 SaO2% (BldA) [Mass fraction] 99 % Krislyn Aberegg PA Work Phone: [facility] 12-09-2023 12:37-0500 Systolic blood pressure 128 mm[Hg] Krislyn Aberegg PA Work Phone: [facility] 11-24-2023 14:45-0500 Body temperature 97.2 [degF] [facility] 11-24-2023 14:45-0500 Diastolic blood pressure 74 mm[Hg] [facility] 11-24-2023 14:45-0500 Heart rate 80 /min [facility] 11-24-2023 14:45-0500 Respiratory rate 18 /min [facility] 11-24-2023 14:45-0500 SaO2% (BldA) [Mass fraction] 100 % [facility] 11-24-2023 14:45-0500 Systolic blood pressure 118 mm[Hg] [facility] 11-24-2023 11:03-0500 Body height 157.[address] [facility] 11-24-2023 11:03-0500 Body mass index (BMI) [Ratio] 37.8 kg/m2 [facility] 11-24-2023 11:03-0500 Body weight 93.[address] [facility] 11-23-2023 18:45-0500 Body temperature 98.8 [degF] Alecia Dumont APRN.WALKING DRAGLINE OPERATOR Work Phone: [facility] 11-23-2023 18:45-0500 Body weight 94.35 kg Alecia Dumont APRN.WALKING DRAGLINE OPERATOR Work Phone: [facility] 11-23-2023 18:45-0500 Diastolic blood pressure 82 mm[Hg] Alecia Dumont APRN.WALKING DRAGLINE OPERATOR Work Phone: [facility] 11-23-2023 18:45-0500 Heart rate 88 /min Alecia Dumont APRN.WALKING DRAGLINE OPERATOR Work Phone: [facility] 11-23-2023 18:45-0500 Respiratory rate 19 /min Alecia Dumont APRN.WALKING DRAGLINE OPERATOR Work Phone: [facility] 11-23-2023 18:45-0500 SaO2% (BldA) [Mass fraction] 99 % Alecia Dumont APRN.WALKING DRAGLINE OPERATOR Work Phone: [facility] 11-23-2023 18:45-0500 Systolic blood pressure 122 mm[Hg] Alecia Dumont APRN.WALKING DRAGLINE OPERATOR Work Phone: [facility] 11-18-2023 18:56-0500 Diastolic blood pressure 86 mm[Hg] [facility] 11-18-2023 18:56-0500 Heart rate 75 /min [facility] 11-18-2023 18:56-0500 Respiratory rate 12 /min [facility] 11-18-2023 18:56-0500 SaO2% (BldA) [Mass fraction] 99 % [facility] 11-18-2023 18:56-0500 Systolic blood pressure 140 mm[Hg] [facility] 11-18-2023 17:11-0500 Body height 157.[address] [facility] 11-18-2023 17:11-0500 Body mass index (BMI) [Ratio] 39.2 kg/m2 [facility] 11-18-2023 17:11-0500 Body temperature 97.8 [degF] [facility] 11-18-2023 17:11-0500 Body weight 97.[address] [facility] 11-18-2023 11:49-0500 Body height 157.5 cm Raiza rBasher MD Work Phone: [facility] 11-18-2023 11:49-0500 Body weight 95.94 kg Raiza Brasher MD Work Phone: [facility] 11-18-2023 11:49-0500 Diastolic blood pressure 71 mm[Hg] Raiza Brasher MD Work Phone: [facility] 11-18-2023 11:49-0500 Heart rate 83 /min Raiza Brasher MD Work Phone: [facility] 11-18-2023 11:49-0500 Systolic blood pressure 131 mm[Hg] Raiza Brasher MD Work Phone: [facility] 09-17-2023 15:25-0500 Body weight 96.16 kg Cooper Gastelum CHUTE BUILDER.WALKING DRAGLINE OPERATOR Work Phone: [facility] 09-17-2023 15:25-0500 Diastolic blood pressure 70 mm[Hg] Cooper Gastelum CHUTE BUILDER.WALKING DRAGLINE OPERATOR Work Phone: [facility] 09-17-2023 15:25-0500 Heart rate 104 /min Cooper Gastelum CHUTE BUILDER.WALKING DRAGLINE OPERATOR Work Phone: [facility] 09-17-2023 15:25-0500 Respiratory rate 14 /min Cooper Gastelum CHUTE BUILDER.WALKING DRAGLINE OPERATOR Work Phone: [facility] 09-17-2023 15:25-0500 Systolic blood pressure 126 mm[Hg] Cooper Gastelum CHUTE BUILDER.WALKING DRAGLINE OPERATOR Work Phone: [facility] 08-20-2023 19:13-0500 Body height 157.[address] Alfredo Barroso Work Phone: [facility] 08-20-2023 19:13-0500 Body mass index (BMI) [Ratio] 39.3 kg/m2 Dr. Alfredo Barroso Work Phone: [facility] 08-20-2023 19:13-0500 Body temperature 96 [degF] Dr. Alfredo Barrsoo Work Phone: 6(862)469-012445 [address] 08-20-2023 19:13-0500 Body weight 97.[address] Alfredo Barroso Work Phone: 8(928)708-341145 [address] 08-20-2023 19:13-0500 Diastolic blood pressure 86 mm[Hg] Dr. Alfredo Barroso Work Phone: 6(987)852-997745 [address] 08-20-2023 19:13-0500 Heart rate 94 /min Dr. Alfredo Barroso Work Phone: 7(368)642-102842 [place] [address] 08-20-2023 19:13-0500 Respiratory rate 18 /min Dr. Alfredo Barroso Work Phone: 7(279)486-668742 [place] [address] 08-20-2023 19:13-0500 SaO2% (BldA) [Mass fraction] 100 % Dr. Alfredo Barroso Work Phone: [facility] 08-20-2023 19:13-0500 Systolic blood pressure 149 mm[Hg] Dr. Alfredo Barroso Work Phone: [facility] 08-17-2023 14:06-0500 Body weight 93.44 kg Raiza Brasher MD Work Phone: [facility] 07-22-2023 19:48-0400 Body height 157.[address] Alfredo Barroso Work Phone: [facility] 07-22-2023 19:48-0400 Body mass index (BMI) [Ratio] 38.2 kg/m2 Dr. Alfredo Barroso Work Phone: [facility] 07-22-2023 19:48-0400 Body temperature 97.8 [degF] Dr. Alfredo Barroso Work Phone: [facility] 07-22-2023 19:48-0400 Body weight 94.[address] Alfredo Barroso Work Phone: [facility] 07-22-2023 19:48-0400 Diastolic blood pressure 90 mm[Hg] Dr. Alfredo Barroso Work Phone: [facility] 07-22-2023 19:48-0400 Heart rate 98 /min Dr. Alfredo Barroso Work Phone: [facility] 07-22-2023 19:48-0400 Respiratory rate 18 /min Dr. Alfredo Barroso Work Phone: [facility] 07-22-2023 19:48-0400 SaO2% (BldA) [Mass fraction] 98 % Dr. Alfredo Barroso Work Phone: [facility] 07-22-2023 19:48-0400 Systolic blood pressure 151 mm[Hg] Dr. Alfredo Barroso Work Phone: [facility] 06-23-2023 13:45-0400 Body weight 92.99 kg Cooper Gastelum APRN.WALKING DRAGLINE OPERATOR Work Phone: [facility] 06-23-2023 13:45-0400 Diastolic blood pressure 76 mm[Hg] Cooper Gastelum APRN.WALKING DRAGLINE OPERATOR Work Phone: [facility] 06-23-2023 13:45-0400 Heart rate 88 /min Cooper Gastelum APRN.WALKING DRAGLINE OPERATOR Work Phone: [facility] 06-23-2023 13:45-0400 Respiratory rate 16 /min Cooper Gastelum APRN.WALKING DRAGLINE OPERATOR Work Phone: [facility] 06-23-2023 13:45-0400 Systolic blood pressure 116 mm[Hg] Cooper Gastelum APRN.WALKING DRAGLINE OPERATOR Work Phone: [facility] 06-09-2023 13:15-0400 Body height 160 cm Pj James MD Work Phone: [facility] 06-09-2023 13:15-0400 Body weight 91.4 kg Pj James MD Work Phone: [facility] 06-09-2023 13:15-0400 Diastolic blood pressure 78 mm[Hg] Pj James MD Work Phone: [facility] 06-09-2023 13:15-0400 Heart rate 90 /min Pj James MD Work Phone: [facility] 06-09-2023 13:15-0400 SaO2% (BldA) [Mass fraction] 100 % Pj James MD Work Phone: [facility] 06-09-2023 13:15-0400 Systolic blood pressure 118 mm[Hg] Pj James MD Work Phone: [facility] 06-08-2023 14:23-0400 Body weight 88 kg Raiza Brasher MD Work Phone: [facility] 05-19-2023 15:51-0400 Body temperature 98.1 [degF] Dr. Alfredo Barroso Work Phone: [facility] 05-19-2023 15:51-0400 Diastolic blood pressure 70 mm[Hg] Dr. Alfredo Barroso Work Phone: [facility] 05-19-2023 15:51-0400 Heart rate 66 /min Dr. Alfredo Barroso Work Phone: [facility] 05-19-2023 15:51-0400 Respiratory rate 18 /min Dr. Alfredo Barroso Work Phone: [facility] 05-19-2023 15:51-0400 SaO2% (BldA) [Mass fraction] 97 % Dr. Alfredo Barroso Work Phone: [facility] 05-19-2023 15:51-0400 Systolic blood pressure 118 mm[Hg] Dr. Alfredo Barroso Work Phone: 8(373)920-053142 [place] [address] 05-18-2023 11:09-0400 Body mass index (BMI) [Ratio] 28.9 kg/m2 Dr. Alfredo Barroso Work Phone: 5(499)911-622842 [place] [address] 05-18-2023 11:09-0400 Body weight 86.[address] Alfredo Barroso Work Phone: 5(892)387-172342 [place] [address] 05-18-2023 10:48-0400 Body temperature 97.1 [degF] Dr. Alfredo Barroso Work Phone: 3(520)249-100742 [place] [address] 05-18-2023 10:48-0400 Diastolic blood pressure 79 mm[Hg] Dr. Alfredo Barroso Work Phone: 4(587)074-209642 [place] [address] 05-18-2023 10:48-0400 Heart rate 80 /min Dr. Alfredo Barroso Work Phone: 1(451)890-479642 [place] [address] 05-18-2023 10:48-0400 Respiratory rate 14 /min Dr. Alfredo Barroso Work Phone: 7(996)120-784342 [place] [address] 05-18-2023 10:48-0400 SaO2% (BldA) [Mass fraction] 100 % Dr. Alfredo Barroso Work Phone: 6(555)024-151842 [place] [address] 05-18-2023 10:48-0400 Systolic blood pressure 148 mm[Hg] Dr. Alfredo Barroso Work Phone: 0(793)387-125242 [place] [address] 05-18-2023 07:07-0400 Body height 172.[address] Alfredo Barroso Work Phone: 6(533)376-802642 [place] [address] 05-18-2023 07:07-0400 Body mass index (BMI) [Ratio] 28.4 kg/m2 Dr. Alfredo Barroso Work Phone: 8(782)273-810142 [place] [address] 05-18-2023 07:07-0400 Body weight 84.[address] Alfredo Barroso Work Phone: 8(427)194-299142 [place] [address] 05-15-2023 15:55-0400 Body temperature 98.49 [degF] Melissa Fredy CHUTE BUILDER.WALKING DRAGLINE OPERATOR Work Phone: [facility] 05-15-2023 15:55-0400 Body weight 87.09 kg Melissa Fredy CHUTE BUILDER.WALKING DRAGLINE OPERATOR Work Phone: [facility] 05-15-2023 15:55-0400 Diastolic blood pressure 84 mm[Hg] Melissa Fredy CHUTE BUILDER.WALKING DRAGLINE OPERATOR Work Phone: [facility] 05-15-2023 15:55-0400 Heart rate 87 /min Melissa Fredy CHUTE BUILDER.WALKING DRAGLINE OPERATOR Work Phone: [facility] 05-15-2023 15:55-0400 Respiratory rate 18 /min Melissa Fredy CHUTE BUILDER.WALKING DRAGLINE OPERATOR Work Phone: [facility] 05-15-2023 15:55-0400 SaO2% (BldA) [Mass fraction] 99 % Melissa Fredy CHUTE BUILDER.WALKING DRAGLINE OPERATOR Work Phone: [facility] 05-15-2023 15:55-0400 Systolic blood pressure 122 mm[Hg] Melissa Fredy CHUTE BUILDER.WALKING DRAGLINE OPERATOR Work Phone: [facility] 05-14-2023 11:21-0400 Body temperature 98.49 [degF] Maryann Athy PA-C Work Phone: [facility] 05-14-2023 11:21-0400 Body weight 87 kg Maryann Athy PA-C Work Phone: [facility] 05-14-2023 11:21-0400 Diastolic blood pressure 92 mm[Hg] Maryann Athy PA-C Work Phone: [facility] 05-14-2023 11:21-0400 Heart rate 92 /min Maryann Athy PA-C Work Phone: [facility] 05-14-2023 11:21-0400 Respiratory rate 20 /min Maryann Athy PA-C Work Phone: [facility] 05-14-2023 11:21-0400 SaO2% (BldA) [Mass fraction] 98 % Maryann Athy PA-C Work Phone: [facility] 05-14-2023 11:21-0400 Systolic blood pressure 132 mm[Hg] Maryann Athy PA-C Work Phone: [facility] 04-30-2023 13:22-0400 Body temperature 97.2 [degF] [facility] 04-30-2023 13:22-0400 Diastolic blood pressure 97 mm[Hg] [facility] 04-30-2023 13:22-0400 Heart rate 79 /min [facility] 04-30-2023 13:22-0400 Respiratory rate 16 /min [facility] 04-30-2023 13:22-0400 SaO2% (BldA) [Mass fraction] 97 % [facility] 04-30-2023 13:22-0400 Systolic blood pressure 126 mm[Hg] [facility] 04-30-2023 09:21-0400 Body height 162.[address] [facility] 04-30-2023 09:21-0400 Body mass index (BMI) [Ratio] 31.7 kg/m2 [facility] 04-30-2023 09:21-0400 Body weight 83.[address] [facility] 04-18-2023 15:11-0400 Body temperature 97.9 [degF] Maryann Athy PA-C Work Phone: [facility] 04-18-2023 15:11-0400 Body weight 88.91 kg Maryann Athy PA-C Work Phone: [facility] 04-18-2023 15:11-0400 Diastolic blood pressure 70 mm[Hg] Maryann Athy PA-C Work Phone: [facility] 04-18-2023 15:11-0400 Heart rate 96 /min Maryann Athy PA-C Work Phone: [facility] 04-18-2023 15:11-0400 Respiratory rate 16 /min Maryann Athy PA-C Work Phone: [facility] 04-18-2023 15:11-0400 SaO2% (BldA) [Mass fraction] 99 % Maryann Athy PA-C Work Phone: [facility] 04-18-2023 15:11-0400 Systolic blood pressure 122 mm[Hg] Maryann Matias PA-C Work Phone: [facility] 03-12-2023 11:15-0400 Body weight 92.42 kg Humberto Schultz MD Work Phone: [facility] 03-12-2023 11:15-0400 Diastolic blood pressure 78 mm[Hg] Humberto Schultz MD Work Phone: [facility] 03-12-2023 11:15-0400 Systolic blood pressure 120 mm[Hg] Humberto Schultz MD Work Phone: [facility] 02-12-2023 14:35-0400 Body temperature 98.2 [degF] [facility] CHUTE BUILDER.WALKING DRAGLINE OPERATOR Work Phone: [facility] 02-12-2023 14:35-0400 Body weight 97.07 kg [facility] CHUTE BUILDER.WALKING DRAGLINE OPERATOR Work Phone: [facility] 02-12-2023 14:35-0400 Diastolic blood pressure 64 mm[Hg] [facility] CHUTE BUILDER.WALKING DRAGLINE OPERATOR Work Phone: [facility] 02-12-2023 14:35-0400 Heart rate 97 /min [facility] CHUTE BUILDER.WALKING DRAGLINE OPERATOR Work Phone: [facility] 02-12-2023 14:35-0400 Respiratory rate 21 /min [facility] CHUTE BUILDER.WALKING DRAGLINE OPERATOR Work Phone: [facility] 02-12-2023 14:35-0400 SaO2% (BldA) [Mass fraction] 95 % [facility] CHUTE BUILDER.WALKING DRAGLINE OPERATOR Work Phone: [facility] 02-12-2023 14:35-0400 Systolic blood pressure 100 mm[Hg] [facility] CHUTE BUILDER.WALKING DRAGLINE OPERATOR Work Phone: [facility] 12-24-2022 10:30-0400 Body height 160 cm Raiza Brasher MD Work Phone: [facility] 12-24-2022 10:30-0400 Body weight 104.33 kg Raiza Brasher MD Work Phone: [facility] 12-10-2022 12:04-0500 Body temperature 98.6 [degF] Maryann Athy PA-C Work Phone: [facility] 12-10-2022 12:04-0500 Body weight 108.14 kg Maryann Athy PA-C Work Phone: [facility] 12-10-2022 12:04-0500 Diastolic blood pressure 78 mm[Hg] Maryann Athy PA-C Work Phone: [facility] 12-10-2022 12:04-0500 Heart rate 95 /min Maryann Athy PA-C Work Phone: [facility] 12-10-2022 12:04-0500 Respiratory rate 21 /min Maryann Athy PA-C Work Phone: [facility] 12-10-2022 12:04-0500 SaO2% (BldA) [Mass fraction] 100 % Maryann Athy PA-C Work Phone: [facility] 12-10-2022 12:04-0500 Systolic blood pressure 120 mm[Hg] Maryann Athy PA-C Work Phone: [facility] 12-05-2022 09:29-0500 Body height 160 cm Pj James MD Work Phone: [facility] 12-05-2022 09:29-0500 Body weight 109.32 kg Pj James MD Work Phone: [facility] 12-05-2022 09:29-0500 Diastolic blood pressure 80 mm[Hg] Pj James MD Work Phone: [facility] 12-05-2022 09:29-0500 Heart rate 97 /min Pj James MD Work Phone: [facility] 12-05-2022 09:29-0500 SaO2% (BldA) [Mass fraction] 99 % Pj James MD Work Phone: [facility] 12-05-2022 09:29-0500 Systolic blood pressure 121 mm[Hg] Pj James MD Work Phone: [facility] 12-02-2022 13:07-0500 Body height 160 cm Shilpa Winters MD Work Phone: [facility] 12-02-2022 13:07-0500 Body temperature 97 [degF] Shilpa Winters MD Work Phone: [facility] 12-02-2022 13:07-0500 Body weight 110.77 kg Shilpa Winters MD Work Phone: [facility] 12-02-2022 13:07-0500 Diastolic blood pressure 88 mm[Hg] Shilpa Winters MD Work Phone: [facility] 12-02-2022 13:07-0500 Heart rate 85 /min Shilpa Winters MD Work Phone: [facility] 12-02-2022 13:07-0500 SaO2% (BldA) [Mass fraction] 100 % Shilpa Winters MD Work Phone: [facility] 12-02-2022 13:07-0500 Systolic blood pressure 130 mm[Hg] Shilpa Winters MD Work Phone: [facility] 12-01-2022 14:18-0500 Body weight 110.22 kg Cooper Gastelum CHUTE BUILDER.WALKING DRAGLINE OPERATOR Work Phone: [facility] 12-01-2022 14:18-0500 Diastolic blood pressure 72 mm[Hg] Cooper Gastelum APRN.WALKING DRAGLINE OPERATOR Work Phone: [facility] 12-01-2022 14:18-0500 Heart rate 96 /min Cooper Gastelum APRN.WALKING DRAGLINE OPERATOR Work Phone: [facility] 12-01-2022 14:18-0500 Respiratory rate 16 /min Cooper Gastelum APRN.WALKING DRAGLINE OPERATOR Work Phone: [facility] 12-01-2022 14:18-0500 Systolic blood pressure 118 mm[Hg] Cooper Gastelum APRN.CNP Work Phone: [facility] 11-06-2022 13:33-0500 Body weight 113.51 kg Humberto Schultz MD Work Phone: [facility] 11-06-2022 13:33-0500 Diastolic blood pressure 70 mm[Hg] Humberto Schultz MD Work Phone: [facility] 11-06-2022 13:33-0500 Systolic blood pressure 116 mm[Hg] Humberto Schultz MD Work Phone: [facility] 10-29-2022 16:18-0500 Body height 160 cm Raiza Brasher MD Work Phone: [facility] 10-29-2022 16:18-0500 Body weight 115.94 kg Raiza Brasher MD Work Phone: [facility] 10-29-2022 16:18-0500 Diastolic blood pressure 69 mm[Hg] Raiza Brasher MD Work Phone: [facility] 10-29-2022 16:18-0500 Heart rate 86 /min Raiza Brasher MD Work Phone: [facility] 10-29-2022 16:18-0500 Systolic blood pressure 120 mm[Hg] Raiza Brasher MD Work Phone: [facility] 10-01-2022 17:20-0500 Body temperature 97.52 [degF] [facility] DO [facility] 10-01-2022 17:20-0500 Diastolic Blood Pressure Non-Invasive [address] [facility] DO [facility] 10-01-2022 17:20-0500 Heart rate 108 /min [facility] DO [facility] 10-01-2022 17:20-0500 Respiratory rate 18 /min [facility] DO [facility] 10-01-2022 17:20-0500 Systolic Blood Pressure Non-Invasive [address] [facility] [employer] [facility] 10-01-2022 16:40-0500 Body temperature 97.88 [degF] [facility] [employer] [facility] 10-01-2022 16:40-0500 Diastolic Blood Pressure Non-Invasive [address] [facility] [employer] [facility] 10-01-2022 16:40-0500 Heart rate 104 /min [facility] 10-01-2022 16:40-0500 Reason For Taking VItal Signs [facility] 10-01-2022 16:40-0500 Respiratory rate 18 /min [facility] [employer] [facility] 10-01-2022 16:40-0500 Systolic Blood Pressure Non-Invasive [address] [facility] [employer] [facility] 10-01-2022 16:20-0500 Body temperature 97.34 [degF] [facility] 10-01-2022 16:20-0500 Diastolic Blood Pressure Non-Invasive 72 1 [facility] [employer] [facility] 10-01-2022 16:20-0500 Heart rate 116 /min [facility] [employer] [facility] 10-01-2022 16:20-0500 Mean blood pressure 88 mm[Hg] [facility] 10-01-2022 16:20-0500 Respiratory rate 18 /min [facility] 10-01-2022 16:20-0500 Systolic Blood Pressure Non-Invasive 134 1 [facility] 10-01-2022 16:00-0500 Heart rate 91 /min [facility] DO [facility] 10-01-2022 16:00-0500 Mean blood pressure 89 mm[Hg] [facility] DO [facility] 10-01-2022 15:50-0500 Heart rate 89 /min [facility] DO [address] [place] [address] 10-01-2022 15:50-0500 Mean blood pressure 99 mm[Hg] [facility] DO [facility] 10-01-2022 14:47-0500 Body temperature 97.34 [degF] [facility] DO [address] 10-01-2022 14:25-0500 Respiratory Rate - Anes 4 br/min [facility] DO [address] [place] [address] 10-01-2022 14:20-0500 Respiratory Rate - Anes 25 br/min [facility] DO [address] [place] [address] 10-01-2022 14:15-0500 Respiratory Rate - Anes 14 br/min [facility] DO [address] [place] [address] 10-01-2022 14:10-0500 Body temperature 95.7 [degF] [facility] DO [address] [place] [address] 10-01-2022 14:05-0500 Body temperature 95.59 [degF] [facility] DO [address] [place] [address] 10-01-2022 14:00-0500 Body temperature 95.49 [degF] [facility] DO [address] [place] [address] 10-01-2022 09:25-0500 Body height 162.[address] [facility] [employer] [address] [place] [address] 10-01-2022 09:25-0500 Body weight 115.[address] [facility] [address] [place] [address] 10-01-2022 09:25-0500 Heart rate 77 /min [facility] DO [facility] 09-29-2022 12:15-0500 Body weight 120.2 kg Raiza Brasher MD Work Phone: [facility] 09-24-2022 12:51-0500 Body height 165 cm [facility] 09-24-2022 12:51-0500 Body temperature 97.88 [degF] [facility] [employer] [facility] 09-24-2022 12:51-0500 Body weight 119.3 kg [facility] 09-24-2022 12:51-0500 Body weight 43.82 kg/m2 [facility] 09-24-2022 12:51-0500 Diastolic Blood Pressure Non-Invasive 76 1 [facility] 09-24-2022 12:51-0500 Heart rate 86 /min [facility] 09-24-2022 12:51-0500 Systolic Blood Pressure Non-Invasive 117 1 [facility] 09-09-2022 14:57-0500 Body weight 122.92 kg Cooper Gastelum APRN.WALKING DRAGLINE OPERATOR Work Phone: [facility] 09-09-2022 14:57-0500 Diastolic blood pressure 70 mm[Hg] Cooper Gastelum CHUTE BUILDER.WALKING DRAGLINE OPERATOR Work Phone: [facility] 09-09-2022 14:57-0500 Heart rate 72 /min Cooper Oriana CHUTE BUILDER.WALKING DRAGLINE OPERATOR Work Phone: [facility] 09-09-2022 14:57-0500 Respiratory rate 16 /min Cooper Gastelum CHUTE BUILDER.WALKING DRAGLINE OPERATOR Work Phone: [facility] 09-09-2022 14:57-0500 Systolic blood pressure 112 mm[Hg] Cooper Gastelum CHUTE BUILDER.WALKING DRAGLINE OPERATOR Work Phone: [facility] 08-11-2022 11:16-0400 Body height 162.56 cm Referring Provider Unknown BX-Ysgtpjt-Rulqp [place] Work Phone: 08-11-2022 11:16-0400 Body mass index (BMI) [Ratio] 46.35 kg/m2 Referring Provider Unknown OH-Ghgzgkb-Bcgyv Nikhil Work Phone: 08-11-2022 11:16-0400 Body surface area Derived from formula 2.22 m2 Referring Provider Unknown NQ-Eaalcvu-Jzipz [place] Work Phone: 08-11-2022 11:16-0400 Body temperature 97.2 [degF] Referring Provider Unknown JB-Ipssocc-Yjwbe Nikhil Work Phone: 08-11-2022 11:16-0400 Body weight 122.47 kg Referring Provider Unknown DW-Igrqqni-Kalhk Nikhil Work Phone: 08-11-2022 11:16-0400 Diastolic blood pressure 78 mm[Hg] Referring Provider Unknown BV-Azutzij-Aamjq [place] Work Phone: 08-11-2022 11:16-0400 Heart rate 84 /min Referring Provider Unknown MO-Yqiijwu-Hykzl Nikhil Work Phone: 08-11-2022 11:16-0400 Systolic blood pressure 115 mm[Hg] Referring Provider Unknown UZ-Ifrvkfz-Nldma Nikhil Work Phone: 07-02-2022 11:55-0400 Body temperature 97.59 [degF] Sandhya Aguilar CHUTE BUILDER.WALKING DRAGLINE OPERATOR Work Phone: [facility] 07-02-2022 11:55-0400 Body weight 123.29 kg Sandhya Aguilar CHUTE BUILDER.WALKING DRAGLINE OPERATOR Work Phone: [facility] 07-02-2022 11:55-0400 Diastolic blood pressure 64 mm[Hg] Sandhya Aguilar CHUTE BUILDER.WALKING DRAGLINE OPERATOR Work Phone: [facility] 07-02-2022 11:55-0400 Heart rate 118 /min Sandhya Aguilar CHUTE BUILDER.WALKING DRAGLINE OPERATOR Work Phone: [facility] 07-02-2022 11:55-0400 Respiratory rate 21 /min Sandhya Aguilar CHUTE BUILDER.WALKING DRAGLINE OPERATOR Work Phone: [facility] 07-02-2022 11:55-0400 SaO2% (BldA) [Mass fraction] 99 % Sandhya Aguilar CHUTE BUILDER.WALKING DRAGLINE OPERATOR Work Phone: [facility] 07-02-2022 11:55-0400 Systolic blood pressure 98 mm[Hg] Sandhya Aguilar CHUTE BUILDER.WALKING DRAGLINE OPERATOR Work Phone: [facility] 06-23-2022 15:06-0400 Body temperature 98.49 [degF] [facility] CHUTE BUILDER.WALKING DRAGLINE OPERATOR Work Phone: [facility] 06-23-2022 15:06-0400 Body weight 123.38 [facility] CH[facility] BUILDER.WALKING DRAGLINE OPERATOR Work Phone: [facility] 06-23-2022 15:06-0400 Diastolic blood pressure 72 mm[Hg] Roverto Pendlebury CHUTE BUILDER.WALKING DRAGLINE OPERATOR Work Phone: [facility] 06-23-2022 15:06-0400 Heart rate 90 /min Roverto Pendlebury CHUTE BUILDER.WALKING DRAGLINE OPERATOR Work Phone: [facility] 06-23-2022 15:06-0400 Respiratory rate 18 /min Roverto Pendlebury CHUTE BUILDER.WALKING DRAGLINE OPERATOR Work Phone: [facility] 06-23-2022 15:06-0400 SaO2% (BldA) [Mass fraction] 99 % [facility] CHUTE BUILDER.WALKING DRAGLINE OPERATOR Work Phone: [facility] 06-23-2022 15:06-0400 Systolic blood pressure 122 mm[Hg] Roverto Pendlebury CHUTE BUILDER.WALKING DRAGLINE OPERATOR Work Phone: [facility] 06-18-2022 10:28-0400 Body height 163.2 cm Raiza Brasher MD Work Phone: [facility] 06-18-2022 10:28-0400 Body weight 123.06 kg Raiza Brasher MD Work Phone: [facility] 06-18-2022 10:28-0400 Diastolic blood pressure 71 mm[Hg] Raiza Brasher MD Work Phone: [facility] 06-18-2022 10:28-0400 Heart rate 78 /min Raiza Brasher MD Work Phone: [facility] 06-18-2022 10:28-0400 Systolic blood pressure 131 mm[Hg] Riaza Brasher MD Work Phone: [facility] 05-22-2022 08:08-0400 Body weight 122.02 kg Leeleecrissy Hectorhof CHUTE BUILDER.WALKING DRAGLINE OPERATOR Work Phone: [facility] 05-22-2022 08:08-0400 Diastolic blood pressure 68 mm[Hg] Leelee Tannhof CHUTE BUILDER.WALKING DRAGLINE OPERATOR Work Phone: [facility] 05-22-2022 08:08-0400 Heart rate 83 /min Leelee Tannhof CHUTE BUILDER.WALKING DRAGLINE OPERATOR Work Phone: [facility] 05-22-2022 08:08-0400 Respiratory rate 16 /min Leelee Tannhof CHUTE BUILDER.WALKING DRAGLINE OPERATOR Work Phone: [facility] 05-22-2022 08:08-0400 SaO2% (BldA) [Mass fraction] 98 % Leelee Tannhof CHUTE BUILDER.WALKING DRAGLINE OPERATOR Work Phone: [facility] 05-22-2022 08:08-0400 Systolic blood pressure 100 mm[Hg] Leelee Tannhof CHUTE BUILDER.WALKING DRAGLINE OPERATOR Work Phone: [facility] 05-01-2022 14:25-0400 Body height 162.56 cm Referring Provider Unknown LL-Rlmmidm-Haytl [place] Work Phone: 05-01-2022 14:25-0400 Body mass index (BMI) [Ratio] 45.49 kg/m2 Referring Provider Unknown TE-Cvgugao-Ltnck Nikhil Work Phone: 05-01-2022 14:25-0400 Body surface area Derived from formula 2.2 m2 Referring Provider Unknown CX-Wviokzs-Ezvuc [place] Work Phone: 05-01-2022 14:25-0400 Body temperature 97 [degF] Referring Provider Unknown BX-Tzkatyu-Sjnjb Nikh[place] Work Phone: 05-01-2022 14:25-0400 Body weight 120.2 kg Referring Provider Unknown FY-Tufjpaq-Oftgu [place] Work Phone: 05-01-2022 14:25-0400 Diastolic blood pressure 81 mm[Hg] Referring Provider Unknown TT-Ukhegic-Ihiin Nikhil Work Phone: 05-01-2022 14:25-0400 Heart rate 80 /min Referring Provider Unknown JZ-Cuevzff-Abvln [place] Work Phone: 05-01-2022 14:25-0400 Systolic blood pressure 115 mm[Hg] Referring Provider Unknown NJ-Bylmupb-Skurw [place] Work Phone: 04-24-2022 09:41-0400 Body weight 121.56 kg Leelee Paynef CHUTE BUILDER.WALKING DRAGLINE OPERATOR Work Phone: [facility] 04-24-2022 09:41-0400 Diastolic blood pressure 62 mm[Hg] Leelee Hectorhof CHUTE BUILDER.WALKING DRAGLINE OPERATOR Work Phone: [facility] 04-24-2022 09:41-0400 Heart rate 87 /min Leelee Hectorhof CHUTE BUILDER.WALKING DRAGLINE OPERATOR Work Phone: [facility] 04-24-2022 09:41-0400 Respiratory rate 20 /min Leelee Hectorhof CHUTE BUILDER.WALKING DRAGLINE OPERATOR Work Phone: [facility] 04-24-2022 09:41-0400 SaO2% (BldA) [Mass fraction] 97 % Leelee Hectorhof CHUTE BUILDER.WALKING DRAGLINE OPERATOR Work Phone: [facility] 04-24-2022 09:41-0400 Systolic blood pressure 118 mm[Hg] Leelee Tannhof CHUTE BUILDER.WALKING DRAGLINE OPERATOR Work Phone: [facility] 02-14-2022 14:25-0400 Body temperature 98.6 [degF] DAY VELAZQUEZ MD [facility] 02-14-2022 14:25-0400 Diastolic blood pressure 81 mm[Hg] DAY VELAZQUEZ MD [facility] 02-14-2022 14:25-0400 Heart rate 85 /min DAY VELAZQUEZ MD [facility] 02-14-2022 14:25-0400 Reason For Taking VItal Signs DAY VELAZQUEZ MD [facility] 02-14-2022 14:25-0400 Respiratory rate 18 /min DAY VELAZQUEZ MD [facility] 02-14-2022 14:25-0400 Systolic blood pressure 116 mm[Hg] DAY VELAZQUEZ MD [facility] 02-14-2022 06:22-0400 Body temperature 98.78 [degF] DAY VELAZQUEZ MD [facility] 02-14-2022 06:22-0400 Diastolic blood pressure 83 mm[Hg] DAY VELAZQUEZ MD [facility] 02-14-2022 06:22-0400 Heart rate 86 /min DAY VELAZQUEZ MD [facility] 02-14-2022 06:22-0400 Respiratory rate 18 /min DAY VELAZQUEZ MD [facility] 02-14-2022 06:22-0400 Systolic blood pressure 124 mm[Hg] DAY VELAZQUEZ MD [facility] 02-13-2022 21:43-0400 Body temperature 98.24 [degF] DAY VELAZQUEZ MD [facility] 02-13-2022 21:43-0400 Diastolic blood pressure 74 mm[Hg] DAY VELAZQUEZ MD [facility] 02-13-2022 21:43-0400 Heart rate 108 /min DAY VELAZQUEZ MD [facility] 02-13-2022 21:43-0400 Reason For Taking VItal Signs DAY VELAZQUEZ MD [facility] 02-13-2022 21:43-0400 Respiratory rate 18 /min DAY VELAZQUEZ MD [facility] 02-13-2022 21:43-0400 Systolic blood pressure 163 mm[Hg] DAY VELAZQUEZ MD [facility] 02-13-2022 17:49-0400 Reason For Taking VItal Signs DAY VELAZQUEZ MD [facility] 02-12-2022 07:39-0400 Mean blood pressure 82 mm[Hg] DAY VELAZQUEZ MD [facility] 02-12-2022 00:10-0400 Mean blood pressure 102 mm[Hg] DAY VELAZQUEZ MD [facility] 02-11-2022 19:51-0400 Mean blood pressure 105 mm[Hg] DAY VELAZQUEZ MD [facility] 02-10-2022 23:56-0400 Body temperature 97.88 [degF] DAY VELAZQUEZ MD [facility] 02-10-2022 23:56-0400 Heart rate 78 /min DAY VELAZQUEZ MD [facility] 02-10-2022 21:01-0400 Body temperature 97.88 [degF] DAY VELAZQUEZ MD [facility] 02-10-2022 21:01-0400 Heart rate 88 /min DAY VELAZQUEZ MD [facility] 02-10-2022 20:53-0400 Body height 162.6 cm DAY VELAZQUEZ MD [facility] 02-10-2022 20:53-0400 Body weight 118.8 kg DAY VELAZQUEZ MD [facility] 02-10-2022 20:53-0400 Body weight 44.93 kg/m2 DAY VELAZQUEZ MD [facility] 02-10-2022 20:09-0400 Body temperature 97.52 [degF] DAY VELAZQUEZ MD [facility] 02-10-2022 20:09-0400 Diastolic Blood Pressure NBP 81 1 DAY VELAZQUEZ MD [facility] 02-10-2022 20:09-0400 Heart rate 103 /min DAY VELAZQUEZ MD [facility] 02-10-2022 20:09-0400 Mean blood pressure 91 mm[Hg] DAY VELAZQUEZ MD [facility] 02-10-2022 20:09-0400 Systolic Blood Pressure NBP 148 1 DAY VELAZQUEZ MD [facility] 02-10-2022 19:54-0400 Diastolic Blood Pressure NBP 80 1 DAY VELAZQUEZ MD [facility] 02-10-2022 19:54-0400 Mean blood pressure 92 mm[Hg] DAY VELAZQUEZ MD [facility] 02-10-2022 19:54-0400 Systolic Blood Pressure NBP 143 1 DAY VELAZQUEZ MD [facility] 02-10-2022 19:33-0400 Diastolic Blood Pressure NBP 59 1 DAY VELAZQUEZ MD [facility] 02-10-2022 19:33-0400 Mean blood pressure 75 mm[Hg] DAY VELAZQUEZ MD [facility] 02-10-2022 19:33-0400 Systolic Blood Pressure NBP 128 1 DAY VELAZQUEZ MD [facility] 02-10-2022 19:15-0400 Body temperature 98.44 [degF] DAY VELAZQUEZ MD [facility] 02-10-2022 19:10-0400 Body temperature 98.38 [degF] DAY VELAZQUEZ MD [facility] 02-10-2022 19:05-0400 Body temperature 98.33 [degF] DAY VELAZQUEZ MD [facility] 02-10-2022 13:41-0400 Body height 162.6 cm DAY VELAZQUEZ MD [facility] 02-10-2022 13:41-0400 Body weight 118.8 kg DAY VELAZQUEZ MD [facility] 02-10-2022 13:41-0400 Heart rate 76 /min DAY VELAZQUEZ MD [facility] 10-04-2021 19:35-0500 Body height 162.6 cm DINORA KRUEGER MD [facility] 10-04-2021 19:35-0500 Body temperature 98.42 [degF] DINORA KRUEGER MD [facility] 10-04-2021 19:35-0500 Body weight 109.1 kg DINORA KRUEGER MD [facility] 10-04-2021 19:35-0500 Diastolic blood pressure 89 mm[Hg] DINORA KRUEGER MD [facility] 10-04-2021 19:35-0500 Heart rate 109 /min DINORA KRUEGER MD [facility] 10-04-2021 19:35-0500 Respiratory rate 20 /min DINORA KRUEGER MD [facility] 10-04-2021 19:35-0500 Systolic blood pressure 146 mm[Hg] DINORA KRUEGER MD [facility] 09-09-2021 15:44-0500 Body temperature 97.52 [degF] DAY VELAZQUEZ MD [facility] 09-09-2021 15:44-0500 Diastolic blood pressure 75 mm[Hg] DAY VELAZQUEZ MD [facility] 09-09-2021 15:44-0500 Heart rate 78 /min DAY VELAZQUEZ MD [facility] 09-09-2021 15:44-0500 Reason For Taking VItal Signs DAY VELAZQUEZ MD [facility] 09-09-2021 15:44-0500 Respiratory rate 16 /min DAY VELAZQUEZ MD [facility] 09-09-2021 15:44-0500 Systolic blood pressure 103 mm[Hg] DAY VELAZQUEZ MD [facility] 09-09-2021 12:08-0500 Body temperature 98.24 [degF] DAY VELAZQUEZ MD [facility] 09-09-2021 12:08-0500 Diastolic blood pressure 77 mm[Hg] DAY VELAZQUEZ MD [facility] 09-09-2021 12:08-0500 Heart rate 72 /min DAY VELAZQUEZ MD [facility] 09-09-2021 12:08-0500 Respiratory rate 16 /min DAY VELAZQUEZ MD [facility] 09-09-2021 12:08-0500 Systolic blood pressure 117 mm[Hg] DAY VELAZQUEZ MD [facility] 09-09-2021 08:12-0500 Body temperature 98.42 [degF] DAY VELAZQUEZ MD [facility] 09-09-2021 08:12-0500 Diastolic blood pressure 71 mm[Hg] DAY VELAZQUEZ MD [facility] 09-09-2021 08:12-0500 Heart rate 75 /min DAY VELAZQUEZ MD [facility] 09-09-2021 08:12-0500 Respiratory rate 16 /min DAY VELAZQUEZ MD [facility] 09-09-2021 08:12-0500 Systolic blood pressure 120 mm[Hg] DAY VELAZQUEZ MD [facility] 09-08-2021 17:00-0500 Reason For Taking VItal Signs DAY VELAZQUEZ MD [facility] 09-08-2021 13:52-0500 Reason For Taking VItal Signs DAY VELAZQUEZ MD [facility] 09-08-2021 13:45-0500 Body height 162.6 cm DAY VELAZQUEZ MD [facility] 09-08-2021 13:45-0500 Body weight 115.6 kg DAY VELAZQUEZ MD [facility] 09-08-2021 13:45-0500 Body weight 43.72 kg/m2 DAY VELAZQUEZ MD [facility] 09-08-2021 06:54-0500 Body weight 115.6 kg DAY VELAZQUEZ MD [facility] 09-07-2021 22:28-0500 Body temperature 97.52 [degF] ENZO GABRIEL-LITZY CHUTE BUILDER-WALKING DRAGLINE OPERATOR [facility] 09-07-2021 22:28-0500 Body weight 115.6 kg ENZO GABRIEL-LITZY CHUTE BUILDER-WALKING DRAGLINE OPERATOR [facility] 09-07-2021 22:28-0500 Diastolic blood pressure 84 mm[Hg] ENZO GABRIEL-LITZY CHUTE BUILDER-WALKING DRAGLINE OPERATOR [facility] 09-07-2021 22:28-0500 Heart rate 79 /min ENZO GABRIEL-LITZY CHUTE BUILDER-WALKING DRAGLINE OPERATOR [facility] 09-07-2021 22:28-0500 Respiratory rate 18 /min ENZO GABRIEL-LITZY CHUTE BUILDER-WALKING DRAGLINE OPERATOR [facility] 09-07-2021 22:28-0500 Systolic blood pressure 141 mm[Hg] ENZO LYON [facility] 09-03-2021 16:15-0500 Body temperature 97.7 [degF] DAY VELAZQUEZ MD [facility] 09-03-2021 16:15-0500 Diastolic blood pressure 67 mm[Hg] DAY VELAZQUEZ MD [facility] 09-03-2021 16:15-0500 Heart rate 90 /min DAY VELAZQUEZ MD [facility] 09-03-2021 16:15-0500 Respiratory rate 17 /min DAY VELAZQUEZ MD [facility] 09-03-2021 16:15-0500 Systolic blood pressure 113 mm[Hg] DAY VELAZQUEZ MD [facility] 09-03-2021 12:12-0500 Body temperature 98.06 [degF] DAY VELAZQUEZ MD [facility] 09-03-2021 12:12-0500 Diastolic blood pressure 80 mm[Hg] DAY VELAZQUEZ MD [facility] 09-03-2021 12:12-0500 Heart rate 72 /min DAY VELAZQUEZ MD [facility] 09-03-2021 12:12-0500 Reason For Taking VItal Signs DAY VELAZQUEZ MD [facility] 09-03-2021 12:12-0500 Respiratory rate 17 /min DAY VELAZQUEZ MD [facility] 09-03-2021 12:12-0500 Systolic blood pressure 128 mm[Hg] DAY VELAZQUEZ MD [facility] 09-03-2021 08:15-0500 Body temperature 97.88 [degF] DAY VELAZQUEZ MD [facility] 09-03-2021 08:15-0500 Diastolic blood pressure 79 mm[Hg] DAY VELAZQUEZ MD [facility] 09-03-2021 08:15-0500 Heart rate 62 /min DAY VELAZQUEZ MD [facility] 09-03-2021 08:15-0500 Mean blood pressure 95 mm[Hg] DAY VELAZQUEZ MD [facility] 09-03-2021 08:15-0500 Reason For Taking VItal Signs DAY VELAZQUEZ MD [facility] 09-03-2021 08:15-0500 Respiratory rate 16 /min DAY VELAZQUEZ MD [facility] 09-03-2021 08:15-0500 Systolic blood pressure 127 mm[Hg] DAY VELAZQUEZ MD [facility] 09-03-2021 03:54-0500 Mean blood pressure 88 mm[Hg] DAY VELAZQUEZ MD [facility] 09-03-2021 03:54-0500 Reason For Taking VItal Signs DAY VELAZQUEZ MD [facility] 09-02-2021 08:00-0500 Mean blood pressure 107 mm[Hg] DAY VELAZQUEZ MD [facility] 09-01-2021 07:42-0500 Heart rate 84 /min DAY VELAZQUEZ MD [facility] 08-31-2021 15:40-0500 Body temperature 97.52 [degF] DAY VELAZQUEZ MD [facility] 08-31-2021 15:40-0500 Diastolic Blood Pressure NBP 56 1 DAY VELAZQUEZ MD [facility] 08-31-2021 15:40-0500 Heart rate 82 /min DAY VELAZQUEZ MD [facility] 08-31-2021 15:40-0500 Mean blood pressure 73 mm[Hg] DAY VELAZQUEZ MD [facility] 08-31-2021 15:40-0500 Systolic Blood Pressure NBP 128 1 DAY VELAZQUEZ MD [facility] 08-31-2021 15:25-0500 Diastolic Blood Pressure NBP 57 1 DAY VELAZQUEZ MD [facility] 08-31-2021 15:25-0500 Heart rate 79 /min DAY VELAZQUEZ MD [facility] 08-31-2021 15:25-0500 Mean blood pressure 72 mm[Hg] DAY VELAZQUEZ MD [facility] 08-31-2021 15:25-0500 Systolic Blood Pressure NBP 125 1 DAY VELAZQUEZ MD [facility] 08-31-2021 15:10-0500 Diastolic Blood Pressure NBP 60 1 DAY VELAZQUEZ MD [facility] 08-31-2021 15:10-0500 Heart rate 86 /min DAY VELAZQUEZ MD [facility] 08-31-2021 15:10-0500 Mean blood pressure 72 mm[Hg] DAY VELAZQUEZ MD [facility] 08-31-2021 15:10-0500 Systolic Blood Pressure NBP 121 1 DAY VELAZQUEZ MD [facility] 08-31-2021 14:25-0500 Body temperature 97.88 [degF] DAY VELAZQUEZ MD [facility] 08-31-2021 13:50-0500 Body temperature 98.6 [degF] DAY VELAZQUEZ MD [facility] 08-31-2021 13:35-0500 Body temperature 96.8 [degF] DAY VELAZQUEZ MD [facility] 08-31-2021 13:20-0500 Body temperature 96.8 [degF] DAY VELAZQUEZ MD [facility] 08-31-2021 08:15-0500 Heart rate 76 /min DAY VELAZQUEZ MD [facility] 08-29-2021 21:58-0500 Body height 162.6 cm DAY VELAZQUEZ MD [facility] 08-29-2021 21:58-0500 Body weight 118.2 kg DAY VELAZQUEZ MD [facility] 08-29-2021 21:58-0500 Body weight 44.71 kg/m2 DAY VELAZQUEZ MD [facility] 08-28-2021 06:50-0500 Body temperature 98.42 [degF] DAY VELAZQUEZ MD [facility] 08-28-2021 06:50-0500 Diastolic blood pressure 66 mm[Hg] DAY VELAZQUEZ MD [facility] 08-28-2021 06:50-0500 Heart rate 61 /min DAY VELAZQUEZ MD [facility] 08-28-2021 06:50-0500 Reason For Taking VItal Signs DAY VELAZQUEZ MD [facility] 08-28-2021 06:50-0500 Respiratory rate 16 /min DAY VELAZQUEZ MD [facility] 08-28-2021 06:50-0500 Systolic blood pressure 104 mm[Hg] DAY VELAZQUEZ MD [facility] 08-27-2021 23:32-0500 Body temperature 98.6 [degF] DAY VELAZQUEZ MD [facility] 08-27-2021 23:32-0500 Diastolic blood pressure 59 mm[Hg] DAY VELAZQUEZ MD [facility] 08-27-2021 23:32-0500 Heart rate 83 /min DAY VELAZQUEZ MD [facility] 08-27-2021 23:32-0500 Reason For Taking VItal Signs DAY VELAZQUEZ MD [facility] 08-27-2021 23:32-0500 Respiratory rate 16 /min DAY VELAZQUEZ MD [facility] 08-27-2021 23:32-0500 Systolic blood pressure 108 mm[Hg] DAY VELAZQUEZ MD [facility] 08-27-2021 19:30-0500 Body temperature 97.7 [degF] DAY VELAZQUEZ MD [facility] 08-27-2021 19:30-0500 Diastolic blood pressure 64 mm[Hg] DAY VELAZQUEZ MD [facility] 08-27-2021 19:30-0500 Heart rate 74 /min DAY VELAZQUEZ MD [facility] 08-27-2021 19:30-0500 Mean blood pressure 81 mm[Hg] DAY VELAZQUEZ MD [facility] 08-27-2021 19:30-0500 Reason For Taking VItal Signs DAY VELAZQUEZ MD [facility] 08-27-2021 19:30-0500 Respiratory rate 16 /min DAY VELAZQUEZ MD [facility] 08-27-2021 19:30-0500 Systolic blood pressure 116 mm[Hg] DAY VELAZQUEZ MD [facility] 08-27-2021 16:01-0500 Heart rate 86 /min DAY VELAZQUEZ MD [facility] 08-27-2021 16:01-0500 Mean blood pressure 77 mm[Hg] DAY VELAZQUEZ MD [facility] 08-27-2021 11:03-0500 Heart rate 70 /min DAY VELAZQUEZ MD [facility] 08-27-2021 07:15-0500 Heart rate 63 /min DAY VELAZQUEZ MD [facility] 08-26-2021 14:58-0500 Body temperature 96.98 [degF] DAY VELAZQUEZ MD [facility] 08-26-2021 14:58-0500 Diastolic Blood Pressure NBP 51 1 DAY VELAZQUEZ MD [facility] 08-26-2021 14:58-0500 Heart rate 75 /min DAY VELAZQUEZ MD [facility] 08-26-2021 14:58-0500 Mean blood pressure 66 mm[Hg] DAY VELAZQUEZ MD [facility] 08-26-2021 14:58-0500 Systolic Blood Pressure NBP 108 1 DAY VELAZQUEZ MD [facility] 08-26-2021 14:43-0500 Diastolic Blood Pressure NBP 49 1 DAY VELAZQUEZ MD [facility] 08-26-2021 14:43-0500 Heart rate 65 /min DAY VELAZQUEZ MD [facility] 08-26-2021 14:43-0500 Mean blood pressure 60 mm[Hg] DAY VELAZQUEZ MD [facility] 08-26-2021 14:43-0500 Systolic Blood Pressure NBP 102 1 DAY VELAZQUEZ MD [facility] 08-26-2021 14:13-0500 Diastolic Blood Pressure NBP 67 1 DAY VELAZQUEZ MD [facility] 08-26-2021 14:13-0500 Heart rate 64 /min DAY VELAZQUEZ MD [facility] 08-26-2021 14:13-0500 Mean blood pressure 80 mm[Hg] DAY VELAZQUEZ MD [facility] 08-26-2021 14:13-0500 Systolic Blood Pressure NBP 119 1 DAY VELAZQUEZ MD [facility] 08-26-2021 13:43-0500 Body temperature 96.8 [degF] DAY VELAZQUEZ MD [facility] 08-26-2021 13:13-0500 Body temperature 96.8 [degF] DAY VELAZQUEZ MD [facility] 08-26-2021 12:45-0500 Body temperature 95 [degF] DAY VELAZQUEZ MD [facility] 08-26-2021 12:30-0500 Body temperature 95 [degF] DAY VELAZQUEZ MD [facility] 08-26-2021 12:15-0500 Body temperature 95 [degF] DAY VELAZQUEZ MD [facility] 08-26-2021 09:36-0500 Body height 162.6 cm DAY VELAZQUEZ MD [facility] 08-26-2021 09:36-0500 Body weight 114.4 kg DAY VELAZQUEZ MD [facility] 08-23-2021 11:08-0500 Body height 162.6 cm DAY VELAZQUEZ MD [facility] 08-23-2021 11:08-0500 Body weight 117 kg DAY VELAZQUEZ MD [facility] 06-22-2021 13:25-0400 Body temperature 98.2 [degF] Ceasar Fenton MD Work Phone: [facility] Work Phone: 06-22-2021 13:25-0400 Diastolic blood pressure [...] 128 mm[Hg] Ceasar Fenton MD Work Phone: [facility] Work Phone: 06-22-2021 10:12-0400 Body height 162.6 cm Ceasar Fenton MD Work Phone: [facility] Work Phone: 06-22-2021 10:12-0400 Body mass index (BMI) [Ratio] 42.4 kg/m2 Ceasar Fenton MD Work Phone: [facility] Work Phone: 06-22-2021 10:12-0400 Body weight 112.04 kg Ceasar Fenton MD Work Phone: [facility] Work Phone: 06-09-2021 16:28-0400 Diastolic blood pressure [...] 99 % Yemi Ramirez MD Work Phone: [facility] Work Phone: 05-17-2021 09:35-0400 Systolic blood pressure 128 mm[Hg] Yemi Ramirez MD Work Phone: [facility] Work Phone: 05-16-2021 07:13-0400 Body height 162.6 cm Yemi Ramirez MD Work Phone: [facility] Work Phone: 05-16-2021 07:13-0400 Body mass index (BMI) [Ratio] 44.97 kg/m2 Yemi Ramirez MD Work Phone: [facility] Work Phone: 05-16-2021 07:13-0400 Body weight 118.84 kg Yemi Ramirez MD Work Phone: [facility] Work Phone: 02-10-2017 15:23-0400 BMI (Body Mass Index) 39.85 kg/m2 Poornima Jimenez MD [facility] [employer] Work Phone: 02-10-2017 [id number] Body Temperature 98.2 [degF] Poornima Jimenez MD [facility] [employer] Work Phone: 02-10-2017 15:23-0400 BP Diastolic 75 mm[Hg] Poornima Jimenez MD [facility] [employer] Work Phone: 02-10-2017 15:23-0400 BP Systolic 116 mm[Hg] Poornima Jimenez MD [facility] [employer] Work Phone: 02-10-2017 15:23-0400 BSA (Body Surface Area) 2.03 m2 Poornima Jimenez MD [facility] [employer] Work Phone: 02-10-2017 [id number] Height 160.02 cm Poornima Jimenez MD [facility] [employer] Work Phone: 02-10-2017 15:23-0400 Pulse (Heart Rate) 43 /min Poornima Jimenez MD [facility] Work Phone: 02-10-2017 15:23-0400 Pulse Oximetry 96 % Poornima Jimenez MD [facility] Work Phone: 02-10-2017 15:23-0400 Respiratory Rate 16 /min Poornima Jimenez MD [facility] Work Phone: 02-10-2017 15:23-0400 Weight 102.06 kg Poornima Jimenez MD [facility] Work Phone: NEGATED: Highlighted [id number] 08:40-0500 Body height 162.56 cm Wendy Tittel CHIEF LOAD DISPATCHER [facility] Work Phone: NEGATED: Highlighted [id number] 08:40-0500 Body height 163 cm Wendy Tittel CHIEF LOAD DISPATCHER [facility] Work Phone: NEGATED: Highlighted [id number] 08:40-0500 Body mass index (BMI) [Ratio] 44.45 kg/m2 Wendy Tittel CHIEF LOAD DISPATCHER [facility] Work Phone: NEGATED: Highlighted [id number] 08:40-0500 Body temperature 98 [degF] Wendy Tittel CHIEF LOAD DISPATCHER [facility] Work Phone: NEGATED: Highlighted [id number] 08:40-0500 Body temperature 98.06 [degF] Wendy Tittel CHIEF LOAD DISPATCHER [facility] Work Phone: NEGATED: Highlighted [id number] 08:40-0500 Body weight 117.03 kg Wendy Tittel CHIEF LOAD DISPATCHER [facility] Work Phone: NEGATED: Highlighted [id number] 08:40-0500 Body weight 117 kg Wendy Tittel CHIEF LOAD DISPATCHER [facility] Work Phone: Encounters Encounter Date Encounter Type Care Provider Facility Start: 08-21-2025 End: 08-21-2025 ambulatory [facility] Facility:[facility] Start: 06-30-2025 End: 06-30-2025 [facility] Facility:[facility] Start: 06-18-2025 End: 06-18-2025 Emergency department patient visit Dr. Alfredo Barroso MD Work Phone: -Emergency Department Work Phone: Start: 06-09-2025 End: 06-09-2025 Patient encounter procedure Mauro SAXENA Work Phone: [facility] Comment on above: Screening for STD (s exually transmitted disease) (Primary Dx); Dysuria Start: 06-09-2025 End: 06-09-2025 [facility] Facility:[facility] Start: 06-05-2025 End: 06-05-2025 [facility] Facility:[facility] Start: 05-30-2025 End: 05-30-2025 [facility] Facility:[facility] Start: 05-10-2025 End: 05-10-2025 Telemedicine consultation with patient Felicity Zuleta APRNNatalyWALKING DRAGLINE OPERATOR Work Phone: Telemedicine Comment on above: Superficial thrombop hlebitis of right upper extremity (Primary Dx) Start: 05-10-2025 End: 05-10-2025 [facility] Facility:[facility] Start: 05-08-2025 End: 05-08-2025 ambulatory MARIETTA LUGO Facility:[facility] Start: 05-08-2025 End: 05-08-2025 Patient encounter [...] (HCC) (Primary Dx) Start: 04-05-2025 End: 04-05-2025 ambulatory CHRISTOFER AYALA Facility:[facility] Start: 03-28-2025 End: 03-28-2025 Patient encounter procedure Tahmina Dumont MD Work Phone: OB/Gynecology Comment on above: care foll owing delivery (HCC) (Primary Dx) Start: 03-28-2025 End: 03-28-2025 ambulatory TAHMINA DUMONT Facility:[facility] Start: 03-23-2025 End: 05-23-2025 Follow-up encounter Jammie Funes APRN.CNP Work Phone: OB/Gynecology Start: 03-23-2025 End: 03-25-2025 Evaluation and management of inpatient YOVANI Kelsea FREEDOM Facility:[facility] Start: 03-22-2025 End: 03-22-2025 ambulatory JAMMIE FUNES Facility:[facility] Start: 03-21-2025 End: 03-21-2025 E-mail encounter [...] on above: Orders Start: 03-21-2025 End: 03-21-2025 ambulatory TAHMINA DUMONT Facility:[facility] Start: 03-14-2025 End: 03-14-2025 Patient encounter procedure Tahmina Dumont MD Work Phone: OB/Gynecology Comment on above: 37 weeks gestation o f (HCC) (Primary Dx); Supervision of high risk in third trimester (HCC); Insulin controlled gestational diabetes mellitus (GDM) in third trimester (HCC); Obesity affecting in second trimester, unspecified obesity type (HCC) Start: 03-14-2025 End: 03-14-2025 ambulatory TAHMINA DUMONT Facility:[facility] Start: 03-10-2025 End: 05-10-2025 Follow-up encounter [...] 03-07-2025 End: 05-07-2025 Follow-up encounter Jammie Funes APRN.CNP Work Phone: OB/Gynecology Start: 03-07-2025 End: 03-07-2025 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 Marietta Lugo MD [facility] Work Phone: Start: 02-28-2025 End: 02-28-2025 ambulatory ROVERTO DIANE Facility:[facility] Start: 02-24-2025 End: 02-24-2025 Telephone encounter Armando Burton RD Work Phone: Endocrinology Start: 02-22-2025 End: 04-24-2025 Follow-up encounter Stephani Aaron APRN.CNP Work Phone: OB/Gynecology Start: 02-22-2025 End: 02-22-2025 Telephone encounter Winter Nation MD Work Phone: OB/Gynecology Comment on above: Received Outside Med ical Records GDM Start: 02-21-2025 End: 02-21-2025 Telephone encounter Winter Nation MD Work Phone: OB/Gynecology Comment on above: Request Outside [facility] Records Start: 02-21-2025 End: 02-21-2025 Patient encounter [...] of (HCC) Start: 02-21-2025 End: 02-21-2025 ambulatory WINTER NATION Facility:[facility] Start: 02-17-2025 End: 02-22-2025 ambulatory [facility] OB/Gynecology Comment on above: NPH Insulin Prior Au th Start: 02-17-2025 End: 02-22-2025 E-mail encounter from caregiver [facility] Provider OB/Gynecology Start: 02-16-2025 End: 02-16-2025 ambulatory ROVERTO DIANE Facility:[facility] Start: 02-16-2025 End: 02-16-2025 Patient encounter [...] obesity type (HCC) Start: 02-15-2025 End: 02-15-2025 ambulatory TOPHER SCHULER Facility:[facility] Start: 02-09-2025 End: 02-09-2025 ambulatory Britney Griffin Facility:[facility] Start: 02-09-2025 End: 02-09-2025 ambulatory BRITNEY GRIFFIN Facility:[facility] Start: 02-09-2025 End: 02-09-2025 Patient encounter procedure Britney Griffin MD Work Phone: OB/Gynecology Comment on above: Decreased move ments in third trimester, single or unspecified fetus (HCC) (Primary Dx) Start: 02-09-2025 End: 02-10-2025 Telephone encounter Britney Griffin MD Work Phone: OB/Gynecology Start: 02-07-2025 End: 02-07-2025 Telephone encounter Marietta Cobb RN Maternal Medicine Comment on above: Marketing Specialist - O ther (PRAF) Start: 02-06-2025 End: 04-08-2025 Follow-up encounter Stephani Aaron APRN.CNP Work Phone: OB/Gynecology Start: 02-06-2025 End: 02-06-2025 Patient encounter procedure Britney Griffin MD Work Phone: OB/Gynecology Comment on above: Diet controlled gest ational diabetes mellitus (GDM) in third trimester (HCC) (Primary Dx); History of maternal fourth degree perineal laceration, currently (HCC); Supervision of high risk in third trimester (HCC); Obesity affecting in second trimester, unspecified obesity type (HCC); 32 weeks gestation of (HCC) Encounter for ultras ound to check growth (HCC) (Primary Dx); Diet controlled gestational diabetes mellitus (GDM) in third trimester (HCC); 32 weeks gestation of (HCC) Start: 02-06-2025 End: 02-06-2025 ambulatory BRITNEY GRIFFIN Facility:[facility] Start: 01-31-2025 End: 01-31-2025 ambulatory Tahmina Dumont MD Work Phone: OB/Gynecology Comment on above: Gestational diabetes Start: 01-23-2025 End: 01-23-2025 Telephone encounter Sandhya Reno APRN.CNM Work Phone: OB/Gynecology Comment on above: Vaginal Problem Start: 01-21-2025 End: 01-23-2025 ambulatory Tahmina Dumont MD Work Phone: OB/Gynecology Comment on above: Please add to notes Start: 01-20-2025 End: 01-20-2025 ambulatory MARIETTA LUGO Facility:[facility] Start: 01-20-2025 End: 01-20-2025 Office outpatient visit 15 minutes Marietta Lugo [...] diabetes mellitus (GDM) in third trimester (HCC) Start: 01-10-2025 End: 01-10-2025 ambulatory STEPHANI AARON Facility:[facility] Start: 01-10-2025 End: 01-10-2025 Patient encounter procedure Whi [employer] 2 [employer] Sales Associate [employer] Maternal Medicine Comment on [...] ambulatory Dr. Alfredo Barroso MD Work Phone: [facility] Work Phone: Start: 01-09-2025 End: 01-09-[address] Angela Paul DO -[facility] Work Phone: Start: 01-05-2025 End: 01-05-2025 Telephone encounter Marietta Lugo MD Work Phone: OB/Gynecology Comment on above: OB Pain Start: 01-05-2025 End: 01-05-[address] Marietta Lugo MD -[facility] Work Phone: Start: 01-05-2025 End: 01-05-[address] Alfredo Barroso MD Work Phone: [facility] Work Phone: Start: 12-30-2024 End: 12-30-2024 Follow-up encounter Stephani Galen VASQUEZWALKING DRAGLINE OPERATOR Work Phone: OB/Gynecology Comment on above: GDM Start: 12-30-2024 End: 12-30-2024 ambulatory STEPHANIORA CHOMESSI Facility:[facility] Start: 12-29-2024 End: 02-28-2025 Follow-up encounter Stephani Galen VASQUEZWALKING DRAGLINE OPERATOR Work Phone: OB/Gynecology Comment on above: Results Start: 12-29-2024 End: 12-29-2024 ambulatory MARIETTA LUGO Facility:[facility] Start: 12-22-2024 End: 12-22-2024 Telephone encounter Tahmina Dumont MD Work Phone: OB/Gynecology Start: 12-19-2024 End: 12-19-2024 Telephone encounter Marietta Cobb RN Maternal Medicine Comment on above: Marketing Specialist - O ther (PRAF) Start: 12-15-2024 End: 12-15-2024 ambulatory MARIETTA LUGO Facility:[facility] Start: 12-15-2024 End: 12-15-2024 Office outpatient [...] Screening for diabetes mellitus Start: 11-17-2024 ambulatory David Michael Facility:[facility] Start: 11-15-2024 End: 11-15-2024 ambulatory TAHMINA DUMONT Facility:[facility] Start: 11-15-2024 End: 11-15-2024 Patient encounter procedure Whi [employer] 1 [employer] Sales Associate [employer] Maternal Medicine Comment on [...] 10-25-2024 Emergency department patient visit Yovanitacos Uriostegui -Emergency Department Work Phone: Start: 10-20-2024 End: 10-20-2024 ambulatory TAHMINA DUMONT Facility:[facility] Start: 10-20-2024 End: 10-20-2024 Patient encounter [...] breast pump Start: 10-12-2024 End: 10-12-2024 ambulatory SELF Facility:[facility] Start: 10-12-2024 End: 10-12-2024 Patient encounter procedure Nuno Madrid PA-C Work Phone: [facility] Comment on above: Facial cellulitis (P rimary Dx) Start: 10-12-2024 End: 10-12-2024 Emergency department patient visit Dr. Jayro Brooks DO -Emergency Department Work Phone: Start: 10-11-2024 End: 10-11-2024 Telemedicine consultation with patient Elviabeau Yan WALKING DRAGLINE OPERATOR Work Phone: Telemedicine Comment on above: Dental abscess (Prim alvarez Dx) Start: 10-11-2024 End: 10-11-2024 ambulatory ROVERTO DIANE Facility:[facility] Start: 09-29-2024 End: 09-29-2024 Chart abstracting Roverto Diane MD Work Phone: [facility] Start: 09-28-2024 End: 09-28-[address] David Michael MD -[facility] Work Phone: Start: 09-28-2024 End: 09-28-2024 ambulatory David Michael Facility:[facility] Start: 09-19-2024 End: 09-19-2024 ambulatory JAMMIE DUEÑASCALF Facility:[facility] Start: 09-19-2024 End: 09-19-2024 Patient encounter [...] Telephone encounter Michael Rosado APRN.CNP Work Phone: [facility] Comment on above: Results Start: 09-15-2024 End: 09-15-2024 ambulatory ROVERTO DIANE Facility:[facility] Start: 09-15-2024 End: 09-15-2024 Patient encounter procedure Mauro SAXENA Work Phone: [facility] Comment on above: Sore throat (Primary Dx); URI, acute Start: 09-05-2024 End: 09-05-2024 ambulatory JAMMIE FUNES Facility:[facility] Start: 08-28-2024 End: 08-28-2024 ambulatory Rosalina Wright RN NURSE DRAW FURNACE TENDER Comment on above: Patient Update Start: 08-19-2024 End: 08-19-2024 Telephone encounter Eli Powell RN Obstetrics/Gynecolo gy Comment on above: PRAF Start: 08-18-2024 End: 08-18-2024 Patient encounter procedure Jammie Funes CHUTE BUILDER.WALKING DRAGLINE OPERATOR Work Phone: OB/Gynecology Comment on above: with [...] Telephone encounter Roverto Diane MD Work Phone: [facility] Comment on above: Patient Update Start: 07-25-2024 End: 07-25-2024 Patient encounter procedure [...] Dx) Start: 07-12-2024 End: 07-12-2024 ambulatory ROVERTO Brent WANGEY Facility:[facility] Start: 07-12-2024 End: 07-12-2024 ambulatory Angi Santos MD Work Phone: Hematology/Oncology Comment on above: History of blood jake ts (Primary Dx); PT (paroxysmal tachycardia) (HCC); INR (international normal ratio) abnormal; History of syncope Start: 07-12-2024 End: 07-12-2024 Patient encounter procedure Angi Santos MD Work Phone: Hematology/Oncology Start: 06-30-2024 End: 06-30-2024 ambulatory Kurtis Roth MD Work Phone: Obstetrics/Gynecology Start: 06-30-2024 End: 06-30-2024 Patient encounter procedure Kurtis Roth MD Work Phone: Obstetrics/Gynecology Start: 06-29-2024 End: 07-19-2024 Telephone encounter Riley Kent MD Work Phone: Hematology/Oncology Comment on above: New Patient Start: 06-28-2024 End: 06-28-2024 Patient encounter procedure Chetna Nettles APRN.WALKING DRAGLINE OPERATOR Work Phone: [facility] Comment on above: Discharge from both nipples (Primary Dx); Fibrocystic breast changes of both breasts; Family history of breast cancer Start: 06-27-2024 End: 06-27-2024 Patient encounter procedure Darlin Fleming APRN.WALKING DRAGLINE OPERATOR Work Phone: Plastic Surgery Comment on above: Excess skin (Primary Dx); Intertrigo; History of blood clots Start: 06-25-2024 End: 06-25-2024 Patient encounter procedure Laurie Florentino APRN.WALKING DRAGLINE OPERATOR Work Phone: [facility] Comment on above: Acute effusion of ri ght ear (Primary Dx); Bacterial sinusitis Start: 06-06-2024 End: 06-06-2024 Patient encounter procedure Cooper Gastelum APRN.WALKING DRAGLINE OPERATOR Work Phone: [facility] Comment on above: ADHD (attention defi cit hyperactivity disorder), predominantly hyperactive impulsive type (Primary Dx) Start: 05-17-2024 ambulatory Cooper campos APRN.WALKING DRAGLINE OPERATOR Work Phone: [facility] Comment on above: Adhd Start: 05-13-2024 Telephone encounter Alecia Dumont CHUTE BUILDER.WALKING DRAGLINE OPERATOR Work Phone: [facility] Comment on above: Results Start: 05-12-2024 Telephone encounter Michael jaimes CHUTE BUILDER.WALKING DRAGLINE OPERATOR Work Phone: [facility] Comment on above: Results Start: 05-11-2024 End: 05-11-2024 Patient encounter procedure Sandhya Aguilar APRN.WALKING DRAGLINE OPERATOR Work Phone: [facility] Comment on above: Suprapubic pressure (Primary Dx); Vaginal discharge Start: 05-10-2024 End: 06-08-2024 [facility] Cooper Gastelum CHUTE BUILDER.WALKING DRAGLINE OPERATOR Work Phone: [facility] Comment on above: ADHD (attention defi cit hyperactivity disorder), predominantly hyperactive impulsive type (Primary Dx) 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 ion Start: 05-02-2024 End: 05-02-2024 ambulatory Darryl Pedro APRN.WALKING DRAGLINE OPERATOR Work Phone: OB/Gynecology Comment on above: Menorrhagia with irr egular cycle (Primary Dx); Missed menses; PCOS (polycystic ovarian syndrome) Start: 05-02-2024 End: 05-02-2024 Telemedicine consultation with patient Darryl Pedro ASAEL.WALKING DRAGLINE OPERATOR Work Phone: OB/Gynecology Start: 04-11-2024 Refill Raiza hurd MD Work Phone: General Surgery BMI Comment on above: Refill Request Start: 02-25-2024 Telephone encounter Keri denis APRN.WALKING DRAGLINE OPERATOR Work Phone: [facility] Comment on above: Appointment Start: 02-25-2024 End: 02-25-2024 Patient encounter procedure Keri Jeffrey Victor Manuel CHUTE BUILDER.WALKING DRAGLINE OPERATOR Work Phone: [facility] [place] Comment on above: Diarrhea of presumed infectious origin (Primary Dx); Abdominal cramping Start: 02-18-2024 End: 02-18-2024 Telemedicine consultation with patient Cristino Murphy Michael GARCIA Work Phone: Telemedicine Comment on above: Urinary tract infect ion without hematuria, site unspecified (Primary Dx) Start: 02-16-2024 End: 02-16-2024 Office outpatient visit 40 minutes Raiza Brasher MD Work Phone: General Surgery BMI Comment on above: Class 3 severe obesi ty without serious comorbidity with body mass index (BMI) of 45.0 to 49.9 in adult, unspecified obesity type (HCC) (Primary Dx); Polycystic ovary syndrome Start: 02-08-2024 Refill Raiza hurd MD Work Phone: General Surgery Comment on above: Refill Request Start: 02-03-2024 Admission to [facility] Raiza Brasher MD Work Phone: General Surgery Comment on above: Meds Start: 02-03-2024 ambulatory Raiza hurd MD Work Phone: General Surgery Start: 02-02-2024 End: 02-02-2024 Patient encounter procedure Maryann Matias PA-C Work Phone: [facility] Comment on above: Right facial swellin g (Primary Dx) Start: 01-27-2024 End: 01-27-2024 Patient encounter procedure Michael Rosado APRN.WALKING DRAGLINE OPERATOR Work Phone: [facility] Comment on above: URI, acute (Primary Dx); ETD (Eustachian tube dysfunction), right Start: 12-27-2023 End: 12-27-2023 Emergency department patient visit Vianney Richardson APRN.WALKING DRAGLINE OPERATOR Work Phone: Telemedicine Comment on above: Emergency contracept alek counseling (Primary Dx) Start: 12-27-2023 End: 12-27-2023 Telemedicine consultation with patient Vianney Richardson CHUTE BUILDER.WALKING DRAGLINE OPERATOR Work Phone: [facility] Start: 12-10-2023 ambulatory Humberto delgado MD Work Phone: Obstetrics/Gynecology Comment on above: Ultrasound Start: 12-09-2023 End: 12-09-2023 Patient encounter procedure Mauro SAXENA Work Phone: [facility] Comment on above: Vaginal discharge (P rimary Dx) Start: 12-06-2023 End: 12-06-2023 ambulatory Elvia Yan CHUTE BUILDER.WALKING DRAGLINE OPERATOR Work Phone: Telemedicine Comment on above: Vaginal discharge (P rimary Dx) Start: 12-06-2023 End: 12-06-2023 Telemedicine consultation with patient Elvia Marlowiraj CHUTE BUILDER.WALKING DRAGLINE OPERATOR Work Phone: [facility] Start: 12-03-2023 ambulatory Cooper saucedo PA-C Work Phone: OB/Gynecology Comment on above: Ultrasound Start: 11-27-2023 End: 11-27-2023 Patient encounter procedure Chetna Braggmichel VYAS.WALKING DRAGLINE OPERATOR Work Phone: [facility] Comment on above: Discharge from both nipples [...] 11-27-2023 End: 11-27-2023 Telemedicine consultation with patient Cooper Jordan PA-C Work Phone: [facility] Start: 11-24-2023 Telephone encounter Keri Murphy Leonidas denis CHUTE BUILDER.WALKING DRAGLINE OPERATOR Work Phone: Internal Medicine [place] Comment on above: Erroneous encounter- disregard Start: 11-24-2023 End: 11-24-2023 Emergency department patient visit [facility] Work Phone: Start: 11-24-2023 End: 11-24-2023 ambulatory Nurse Intm/Famp Triage [facility] Work Phone: Nurse Phone Triage Comment on above: Abdominal Pain Start: 11-23-2023 End: 11-23-2023 Patient encounter procedure Alecia Dumont CHUTE BUILDER.WALKING DRAGLINE OPERATOR Work Phone: [facility] Comment on above: Urinary frequency (P rimary Dx); Right lower quadrant abdominal pain Start: 11-23-2023 End: 11-23-2023 ambulatory Armando Aponte CHUTE BUILDER.WALKING DRAGLINE OPERATOR Work Phone: Telemedicine Comment on above: Treatment not availa ble (Primary Dx) Start: 11-23-2023 End: 11-23-2023 Telemedicine consultation with patient Armando Arce Fadi CHUTE BUILDER.WALKING DRAGLINE OPERATOR Work Phone: [facility] Start: 11-18-2023 End: 11-18-2023 Emergency department patient visit [facility] Work Phone: Start: 11-18-2023 ambulatory Roverto delgado MD Work Phone: Family Medicine [place] Comment on above: Headache; Hypertensi on Start: 11-18-2023 End: 11-18-2023 Office outpatient visit 25 minutes Raiza Brasher MD Work Phone: General Surgery Comment on above: Class 3 severe obesi ty without serious comorbidity with body mass index (BMI) of 45.0 to 49.9 in adult, unspecified obesity type (HCC) (Primary Dx) Start: 11-10-2023 ambulatory Cooper saucedo PA-C Work Phone: OB/Gynecology Comment on above: Found something Start: 11-06-2023 ambulatory Cooper Campos Anastacia saucedo PA-C Work Phone: OB/Gynecology Comment on above: Estrogen. Start: 10-28-2023 End: 10-28-2023 ambulatory COOPER Beth JOANIEJOHN Facility:[facility] Start: 10-20-2023 End: 10-20-2023 Emergency department patient visit [facility] Start: 10-14-2023 End: 10-14-2023 [facility] Start: 10-01-2023 End: 10-02-2023 ambulatory SUSAN Kennedy [facility] Start: 10-01-2023 Encounter for other preprocedural examination ROVERTO DIANE [facility] Start: 09-17-2023 End: 09-17-2023 Patient encounter procedure Cooper Gastelum APRN.CNP Work Phone: [facility] [place] Comment on above: Calculus of gallblad ricki without cholecystitis without obstruction (Primary Dx); RUQ pain Start: 09-17-2023 Telephone encounter Roverto Diane MD Work Phone: [facility] [place] Comment on above: Results Start: 09-16-2023 Chart abstracting Roverto gilbert MD Work Phone: Family [facility] Comment on above: Outside MRI Start: 09-14-2023 End: 09-14-2023 Subsequent hospital visit by physician Aria Sims (1.5t) Work Phone: Radiology Start: 08-27-2023 ambulatory Roverto delgado MD Work Phone: Family [facility] [place] Comment on above: Liver Start: 08-24-2023 Telephone encounter Roverto Diane MD Work Phone: Family [facility] [place] Comment on above: Appointment; Results Start: 08-21-2023 ambulatory ROVERTO DIANE Facili ty:[facility] Start: 08-21-2023 End: 08-21-2023 Subsequent hospital visit by physician [facility] Comment on above: Complication of intr auterine device (IUD), unspecified complication, initial encounter ([facility]) [T83.9XXA] Start: 08-20-2023 End: 08-20-2023 Emergency department patient visit Dr. Alfredo Barroso Work Phone: [facility] Work Phone: Start: 08-17-2023 End: 08-17-2023 Office outpatient visit 25 minutes Raiza Brasher MD Work Phone: General Surgery Comment [...] End: 08-14-2023 Telemedicine consultation with patient Mireya Shah DO Work Phone: [facility] Start: 08-05-2023 End: 08-05-2023 Subsequent hospital visit by physician Ct [facility] Radiology Comment on above: Complete intestinal obstruction, unspecified cause ([facility]) [K56.601] Start: 08-05-2023 End: 08-05-2023 ambulatory Sandhya Carolina PA-C Work Phone: Colorectal Surgery Comment on above: Manometry Start: 08-05-2023 End: 08-05-2023 Patient encounter procedure Sandhya Carolina PA-C Work Phone: [facility] Start: 07-28-2023 ambulatory Mireya Shah DO Work Phone: Colorectal Surgery Start: 07-23-2023 Chart abstracting Roverto gilbert MD Work Phone: [facility] Comment on above: ext document ([facility] ER Report) Start: 07-22-2023 End: 07-22-2023 Emergency department patient visit Dr. Alfredo Barroso Work Phone: [facility] Work Phone: Start: 06-25-2023 Telephone encounter Cooper silva CHUTE BUILDER.WALKING DRAGLINE OPERATOR Work Phone: [facility] Comment on above: Results Start: 06-23-2023 End: 06-23-2023 Patient encounter procedure Cooper Gastelum CHUTE BUILDER.WALKING DRAGLINE OPERATOR Work Phone: [facility] Comment on above: White vaginal discha rge (Primary Dx); Urethral pain; Encounter for screening for diabetes mellitus Start: 06-23-2023 End: 06-23-2023 ambulatory Marietta Kitchen CHUTE BUILDER.WALKING DRAGLINE OPERATOR Work Phone: Telemedicine Comment on above: Treatment not availa ble (Primary Dx) Start: 06-23-2023 End: 06-23-2023 Telemedicine consultation with patient Marietta Imtiaz VYAS.WALKING DRAGLINE OPERATOR Work Phone: [facility] Start: 06-21-2023 ambulatory Raiza hurd MD Work Phone: General Surgery Comment on above: Medication Start: 06-09-2023 End: 06-09-2023 Patient encounter procedure Pj James MD Work Phone: Neurology Comment on above: Migraine without aur a and without status migrainosus, not intractable (Primary Dx) Start: 06-08-2023 End: 06-08-2023 ambulatory Raiza Brasher MD Work Phone: General Surgery Comment on above: Class 3 severe obesi ty without serious comorbidity with body mass index (BMI) of 45.0 to 49.9 in adult, unspecified obesity type (HCC) (Primary Dx); Candidal intertrigo; Hernia of abdominal wall; Polycystic ovary syndrome Today Start: 06-08-2023 End: 06-08-2023 Telemedicine consultation with patient Raiza Brasher MD Work Phone: [facility] Start: 06-01-2023 End: 06-01-[address] Alfredo Barroso Work Phone: [facility] Work Phone: Start: 05-20-2023 Chart abstracting Roverto gilbert MD Work Phone: [facility] Comment on above: Results - Ct Start: 05-19-2023 Non-patient / Non-visit Dr. Thai Barroso Work Phone: [facility] Start: 05-18-2023 Non-patient / Non-visit Dr. Thai Barroso Work Phone: [facility] Start: 05-18-2023 End: 05-19-2023 Evaluation and management of inpatient Dr. Alfredo Barroso Work Phone: [facility] Work Phone: Start: 05-15-2023 End: 05-15-2023 Orders Only Stephani Morrison CHUTE BUILDER.WALKING DRAGLINE OPERATOR Work Phone: General Surgery Comment on above: Class 3 severe obesi ty without serious comorbidity with body mass index (BMI) of 45.0 to 49.9 in adult, unspecified obesity type (HCC) Results Recurrent UTI (Prima ry Dx) Start: 05-14-2023 End: 05-14-2023 ambulatory Nicky Fonseca CHUTE BUILDER.WALKING DRAGLINE OPERATOR Work Phone: Telemedicine Comment on above: Treatment not availa ble (Primary Dx) Opened In Error Start: 05-14-2023 End: 05-14-2023 Patient encounter procedure Maryann Matias PA-C Work Phone: [facility] Comment on above: Recurrent UTI (Prima ry Dx) Start: 05-14-2023 End: 05-14-2023 ambulatory Jo Napoles CHUTE BUILDER.WALKING DRAGLINE OPERATOR Work Phone: Telemedicine Comment on above: Treatment not availa ble (Primary Dx) Start: 05-09-2023 ambulatory Angela felder LPN NURSE DRAW FURNACE TENDER Comment on above: IUD Start: 05-07-2023 Orders Only Stephani EWING RN.WALKING DRAGLINE OPERATOR Work Phone: Endocrinology BMI Comment on above: Class 3 severe obesi ty without serious comorbidity with body mass index (BMI) of 45.0 to 49.9 in adult, unspecified obesity type (HCC) (Primary Dx) Start: 04-30-2023 End: 04-30-2023 Emergency department patient visit [facility] Work Phone: Start: 04-28-2023 Orders Only Stephani EWING RN.WALKING DRAGLINE OPERATOR Work Phone: Endocrinology BMI Start: 04-25-2023 Refill Raiza hurd MD Work Phone: General Surgery Comment on above: Refill Request Start: 04-18-2023 End: 04-18-2023 Patient encounter procedure Maryann Matias PA-C Work Phone: [facility] Comment on above: Pelvic pain (Primary Dx) Start: 04-13-2023 ambulatory Raiza hurd MD Work Phone: General Surgery Comment on above: Out of stock Start: 04-11-2023 Refill Raiza hurd MD Work Phone: General Surgery Comment on above: Refill Request Start: 04-07-2023 Refill Raiza hurd MD Work Phone: General Surgery Comment [...] 02-12-2023 Subsequent hospital visit by physician [facility] Work Phone: Radiology Comment on above: Acute pain of left s feliciano [M25.512] Start: 02-12-2023 End: 02-12-2023 Office outpatient visit 15 minutes Roverto Ag APRN.WALKING DRAGLINE OPERATOR Work Phone: [facility] Comment on above: Acute pain of left michel wiggins (Primary Dx) Start: 02-11-2023 ambulatory Roverto delgado MD Work Phone: [facility] Medicine [place] Comment on above: Embarrassed Vaginal discharge (P rimary Dx) Start: 01-08-2023 Telephone encounter Ngoc baez OD Work Phone: Ophthalmology Comment on above: Orders Start: 12-24-2022 Refill Maryann Shahid Work Phone: [facility] Comment on above: Refill Request Start: 12-24-2022 End: 12-24-2022 ambulatory Raiza Brasher MD Work Phone: General Surgery Comment on above: Class 3 severe obesi ty without serious comorbidity with body mass index (BMI) of 45.0 to 49.9 in adult, unspecified obesity type (HCC) (Primary Dx); History of gastroesophageal reflux (GERD) Start: 12-24-2022 End: 12-24-2022 Telemedicine consultation with patient Raiza Brasher MD Work Phone: [facility] Start: 12-19-2022 End: 12-19-2022 Patient encounter [...] both eyes Start: 12-16-2022 End: 12-17-2022 ambulatory [facility] Facility:A Start: 12-16-2022 End: 12-16-2022 Patient encounter procedure [facility] Start: 12-10-2022 End: 12-10-2022 Subsequent hospital visit by physician Xr [facility] [place] Work Phone: Radiology Comment on above: Bronchitis [J40] Start: 12-10-2022 End: 12-10-2022 Patient encounter procedure Maryann Matias PA-C Work Phone: [facility] Comment on above: Bronchitis (Primary Dx) Start: 12-05-2022 End: 12-05-2022 Patient encounter procedure Pj James MD Work Phone: Neurology Comment on above: Blurry vision, right eye (Primary Dx) Start: 12-02-2022 End: 12-02-2022 Patient encounter procedure Shilpa Winters MD Work Phone: General Surgery Comment on above: RUQ abdominal pain ( Primary Dx); Hernia of abdominal wall Start: 12-01-2022 End: 12-01-2022 Patient encounter procedure Cooper Gastelum APRN.CNP Work Phone: Family Medicine [place] Comment on above: Hernia of abdominal wall (Primary Dx) Start: 11-06-2022 End: 11-06-2022 Patient encounter procedure Humberto Schultz MD Work Phone: Obstetrics/Gynecology Comment on above: IUD (intrauterine de vice) in place (Primary Dx); PCOS (polycystic ovarian syndrome) Start: 10-29-2022 End: 10-29-2022 Patient encounter procedure Raiza Brasher MD Work Phone: General Surgery Comment on above: Class 3 severe obesi ty without serious comorbidity with body mass index (BMI) of 45.0 to 49.9 in adult, unspecified obesity type (HCC) (Primary Dx) Start: 10-16-2022 End: 10-17-2022 ambulatory [facility] Facility:A Start: 10-16-2022 End: 10-16-2022 Patient encounter procedure [facility] Start: 10-01-2022 End: 10-01-2022 ambulatory [facility] Facility:A Start: 10-01-2022 End: 10-01-2022 SAME DAY STAY [facility] Start: 09-29-2022 End: 09-29-2022 ambulatory Raiza Brasher MD Work Phone: General Surgery Comment on above: Class 3 severe obesi ty without serious comorbidity with body mass index (BMI) of 45.0 to 49.9 in adult, unspecified obesity type (HCC) (Primary Dx) Start: 09-29-2022 End: 09-29-2022 Telemedicine consultation with patient Raiza Brasher MD Work Phone: [facility] Start: 09-24-2022 End: 09-25-2022 ambulatory [facility] Facility:A Start: 09-24-2022 End: 09-24-2022 Admission to [facility] Start: 09-18-2022 End: 09-19-2022 [facility]:A Start: 09-18-2022 End: 09-18-2022 Patient encounter procedure [facility] Start: 09-11-2022 Telephone encounter Cooper silva APRN.WALKING DRAGLINE OPERATOR Work Phone: [facility] [place] Comment on above: Results Start: 09-09-2022 End: 09-09-2022 Patient encounter procedure Cooper Gastelum APRN.WALKING DRAGLINE OPERATOR Work Phone: [facility] Medicine [facility] Comment on above: Class 3 severe obesi ty without serious comorbidity with body mass index (BMI) of 45.0 to 49.9 in adult, unspecified obesity type (HCC) (Primary Dx); Encounter for screening for diabetes mellitus; Weight gain Start: 09-03-2022 End: 09-04-2022 ambulatory DAY VELAZQUEZ MD Facility:A Start: 09-03-2022 End: 09-03-2022 Patient encounter procedure DAY VELAZQUEZ MD [facility] Start: 08-29-2022 End: 08-30-2022 ambulatory DAY VELAZQUEZ MD Facility:B Start: 08-26-2022 Orders Only Summer Azmat M D Work Phone: General Surgery Start: 08-11-[address] Darryl Rodriguez Facilit [id number] Start: 08-11-2022 Postop follow up vis it related to original px Referring Provider Unknown [id number] [place] Work Phone: Start: 08-04-2022 Orders Only Summer Azmat M D Work Phone: General Surgery Start: 08-04-2022 Chart Update Referring Prov ider Unknown [id number]-Ewabpeox SJW [id number] Work Phone: Start: 07-22-2022 End: 07-22-2022 ambulatory Darryl Rodriguez Facility:[facility] Start: 07-22-2022 Chart Update Referring Prov ider Unknown CY-Iegzwsx-Ocsws [place] Work Phone: Start: 07-16-2022 End: 07-17-2022 ambulatory DAY VELAZQUEZ MD Facility:A Start: 07-16-2022 End: 07-16-2022 Patient encounter procedure DAY VELAZQUEZ MD [facility] Start: 07-07-2022 Orders Only Summer Azmat M D Work Phone: Endocrinology Start: 07-02-2022 End: 07-02-2022 Patient encounter procedure Sandhya Aguilar CHUTE BUILDER.WALKING DRAGLINE OPERATOR Work Phone: [facility] Comment on above: Allergic reaction, i nitial encounter (Primary Dx) Start: 06-23-2022 End: 06-23-2022 Patient encounter procedure Roverto Ag APRN.WALKING DRAGLINE OPERATOR Work Phone: [facility] Comment on above: Acute bilateral low back pain, unspecified whether sciatica present (Primary Dx); Acute sinusitis, recurrence not specified, unspecified location Start: 06-18-2022 End: 06-18-2022 Patient encounter procedure Raiza Brasher MD Work Phone: General Surgery Comment on above: Class 3 severe obesi ty without serious comorbidity with body mass index (BMI) of 45.0 to 49.9 in adult, unspecified obesity type (HCC) (Primary Dx); Weight gain Start: 06-11-2022 Chart Update Referring Prov ider Unknown [id number]-Rvqbb [place] Work Phone: Start: 06-11-2022 End: 06-11-[address] Darryl Rodriguez Facility:[facility] Start: 05-22-2022 End: 05-22-2022 Patient encounter procedure Leelee Tobar APRN.WALKING DRAGLINE OPERATOR Work Phone: Family Medicine [place] Comment on above: Weight gain (Primary Dx) Start: 05-01-[address] Darryl Rodriguez Facilit [id number] Start: 05-01-2022 Office outpatient ne w 60 minutes Referring Provider Unknown MS-Vzjpwxw-Dnsby Nikhil Work Phone: Start: 04-24-2022 End: 04-24-2022 Patient encounter procedure Leelee Tobar APRN.WALKING DRAGLINE OPERATOR Work Phone: Family Medicine [place] Comment on above: Weight gain (Primary Dx) Start: 04-23-2022 End: 04-24-2022 ambulatory DAY VELAZQUEZ MD Facility:A Start: 04-23-2022 End: 04-23-2022 Patient encounter procedure DAY VELAZQUEZ MD [facility] Start: 04-09-2022 End: 04-10-2022 ambulatory DAY VELAZQUEZ MD Facility:A Start: 04-09-2022 End: 04-10-2022 Encounter for other specified special examinations DAY VELAZQUEZ MD Facility:A Start: 04-03-2022 End: 04-04-2022 ambulatory DAY VELAZQUEZ MD Facility:B Start: 03-27-2022 End: 03-28-2022 ambulatory DAY VELAZQUEZ MD Facility:A Start: 03-27-2022 End: 03-27-2022 Patient encounter procedure DAY VELAZQUEZ MD [facility] Start: 02-26-2022 End: 02-27-2022 ambulatory DAY VELAZQUEZ MD Facility:A Start: 02-26-2022 End: 02-26-2022 Patient encounter procedure DAY VELAZQUEZ MD [facility] Start: 02-10-2022 End: 02-14-2022 Evaluation and management of inpatient DAY VELAZQUEZ MD Facility:A Start: 02-10-2022 End: 02-14-2022 Evaluation and management of inpatient DAY VELAZQUEZ MD [facility] Start: 01-10-2022 End: 01-11-2022 ambulatory QUINTON ROCHA CHUTE BUILDER-WALKING DRAGLINE OPERATOR Facility:A Start: 01-10-2022 End: 01-10-2022 Patient encounter procedure QUINTON ROCHA CHUTE BUILDER-WALKING DRAGLINE OPERATOR [facility] Start: 01-01-2022 End: 01-02-2022 ambulatory DAY VELAZQUEZ MD Facility:A Start: 01-01-2022 End: 01-01-2022 Patient encounter procedure DAY VELAZQUEZ MD [facility] Start: 12-26-2021 End: 12-26-2021 Patient encounter procedure QUINTON ROCHA CHUTE BUILDER-WALKING DRAGLINE OPERATOR [facility] Start: 11-27-2021 End: 11-27-2021 Patient encounter procedure DAY VELAZQUEZ MD [facility] Start: 11-13-2021 End: 11-13-2021 Patient encounter procedure DAY VELAZQUEZ MD [facility] Start: 10-16-2021 End: 10-16-2021 Patient encounter procedure QUINTON ROCHA CHUTE BUILDER-WALKING DRAGLINE OPERATOR [facility] Start: 10-04-2021 End: 10-04-2021 Emergency department patient visit DINORA KRUEGER MD [facility] Start: 09-19-2021 End: 09-19-2021 Patient encounter procedure DAY VELAZQUEZ MD [facility] Start: 09-08-2021 End: 09-09-2021 Observation DAY VELAZQUEZ MD [facility] Start: 09-07-2021 End: 09-08-2021 Emergency department patient visit ENZO MEDINA CHUTE BUILDER-WALKING DRAGLINE OPERATOR [facility] Start: 08-29-2021 End: 09-03-2021 Evaluation and management of inpatient DAY VELAZQUEZ MD [facility] Start: 08-26-2021 End: 08-28-2021 Observation DAY VELAZQUEZ MD [facility] Start: 08-22-2021 End: 08-22-2021 Patient encounter procedure DAY VELAZQUEZ MD [facility] Start: 08-08-2021 End: 08-08-2021 Patient encounter procedure DAY VELAZQUEZ MD [facility] Start: 07-30-2021 End: 07-30-2021 Patient encounter procedure DAY VELAZQUEZ MD [facility] Start: 07-25-2021 End: 07-25-2021 Patient encounter procedure DAY VELAZQUEZ MD [facility] Start: 06-22-2021 End: 06-22-2021 Emergency department patient visit Ceasar Fenton MD Work Phone: [facility] Emergency Dept Comment on above: Perineal pain (Prima ry Dx) Start: 06-09-2021 End: 06-09-2021 Emergency department patient visit Sam Calix MD Work Phone: [facility] Emergency Dept Comment on above: Lower abdominal pain (Primary Dx); Rectal pain; Difficult or painful urination; Acute cystitis without hematuria Start: 05-16-2021 End: 05-17-2021 Subsequent hospital visit by physician Yemi Ramirez MD Work Phone: [facility] Comment on above: Rectovaginal fistula (Primary Dx) Start: 12-29-2020 End: 12-29-2020 Subsequent hospital visit by physician Ajay [facility] Work Phone: Radiology Comment on above: Elbow injury, right, initial encounter [S59.901A] Procedures Date Procedure Procedure Detail Performing Clinician Start: 06-09-2025 Urnls dip stick/tabl et rgnt auto w/o microscopy Mauro SAXENA Work Phone: Start: 03-23-2025 End: 03-28-2025 History of cholecystectomy Status post laparoscopic cholecystectomy Tahmina Dumont MD Work Phone: Start: 03-22-2025 Antibody screen TAHMINA DUMONT Comment on above: Order Comment: Speci men Type: BLOOD SPECIMENOrdering Facility: [facility] Address: [address] [place] [address] Performed By: #### T SPN ####CC [facility] BLOOD BANKIA [id number] [address] [facility] Start: 03-21-2025 Urnls dip stick/tabl et rgnt non-auto w/o micrscp Tahmina Dumont MD Work Phone: Start: 03-14-2025 Urnls dip stick/tabl et rgnt non-auto w/o micrscp Tahmina Dumont MD Work Phone: Start: 03-07-2025 Urnls dip stick/tabl et rgnt non-auto w/o micrscp Marietta Lugo MD Work Phone: Start: 03-07-2025 Us preg uterus after 1st trimest 10/12 gestation Stephani Aaron APRN.WALKING DRAGLINE OPERATOR Work Phone: Start: 03-02-[address] Alfredo Barroso MD Work Phone: Start: 03-02-2025 Urnls dip stick/tabl et reagent auto microscopy Dr. Alfredo Barroso MD Work Phone: Start: 02-21-2025 Us preg uterus after 1st trimest 10/12 gestation Stephani Aaron APRN.WALKING DRAGLINE OPERATOR Work Phone: Start: 02-06-2025 Urnls dip stick/tabl et rgnt non-auto w/o micrscp Britney Griffin MD Work Phone: Start: 02-06-2025 Us preg uterus after 1st trimest 10/12 gestation Stephani Aaron APRN.WALKING DRAGLINE OPERATOR Work Phone: Start: 01-10-2025 Us preg uterus after 1st trimest 10/12 gestation Tahmina Dumont MD Work Phone: Start: 11-15-2024 Us preg uterus after 1st trimest 10/12 gestation Tahmina Dumont MD Work Phone: Start: 09-28-2024 Evaluation of diagno stic study results Dr. Alfredo Barroso MD Work Phone: Start: 09-19-2024 Urnls dip stick/tabl et rgnt auto w/o microscopy Stephani Aaron CHUTE BUILDER.WALKING DRAGLINE OPERATOR Work Phone: Start: 09-19-2024 Us nuchal translucency 1st gestation Jammie Funes CHUTE BUILDER.WALKING DRAGLINE OPERATOR Work Phone: Start: 09-15-2024 STREP A MOLECULAR (POC) Mauro SAXENA Work Phone: Start: 09-05-2024 Antibody screen TAHMINA JULIA Comment on above: Order Comment: Speci men Type: BLOOD SPECIMENOrdering Facility: [facility] Address: [address] [place] [address] Performed By: #### T SPN ####CC MAIN BLOOD BANKCLIA [id number] [place] [address] [place] Start: 08-18-2024 Us uterus limited 1/> fetuses Jammie Funes CHUTE BUILDER.WALKING DRAGLINE OPERATOR Work Phone: Start: 06-30-2024 Us pelvic nonobstetr ic real-time image complete Darryl Pedro CHUTE BUILDER.WALKING DRAGLINE OPERATOR Work Phone: Start: 05-11-2024 Urnls dip stick/tabl et rgnt auto w/o microscopy Humberto Conrad MD Work Phone: Start: 12-09-2023 BACTERIAL VAGINOSIS NAAT Mauro SAXENA Work Phone: Start: 11-27-2023 Us breast uni real t olivia with image limited Chetna Nettles CHUTE BUILDER.WALKING DRAGLINE OPERATOR Work Phone: Start: 11-24-2023 Computed tomography of abdomen and pelvis with intravenous contrast Start: 11-23-2023 Urnls dip stick/tabl et rgnt auto w/o microscopy Roverto Ag CHUTE BUILDER.WALKING DRAGLINE OPERATOR Work Phone: Start: 11-18-2023 CT of head without contrast Start: 09-14-2023 Mri abdomen w/o & w/contrast material [facility] Provider Start: 08-05-2023 [facility] Sandhya NGUYENC Work Phone: Start: 08-05-2023 Ct abdomen & pelvis w/contrast material Mireya Shah DO Work Phone: Start: 06-23-2023 Urnls dip stick/tabl et rgnt auto w/o microscopy Cooper Gastelum CHUTE BUILDER.WALKING DRAGLINE OPERATOR Work Phone: Start: 05-19-[address] Alfredo Barroso Work Phone: Start: 05-18-2023 Computed tomography of abdomen and pelvis with intravenous contrast Dr. Alfredo Barroso Work Phone: Start: 05-14-2023 Urnls dip stick/tabl et rgnt auto w/o microscopy Maryann Matias PA-C Work Phone: Start: 04-30-2023 Viral antigen assay Start: 04-18-2023 Culture bacterial quanttative colony count urine Maryann Matias PA-C Work Phone: Start: 04-18-2023 Urnls dip stick/tabl et rgnt auto w/o microscopy Maryann Matias PA-C Work Phone: Start: 03-12-2023 Cytp c/v auto thin l yr prepj scr mnl rescr phys Humberto Schultz MD Work Phone: Start: 02-12-2023 Radex shoulder compl ete minimum 2 views Roverto Ag CHUTE BUILDER.WALKING DRAGLINE OPERATOR Work Phone: Start: 12-17-2022 Computerized ophthal madelaine imaging optic nerve Parker Bergeron MD Work Phone: Start: 12-10-2022 Radiologic exam ches t 2 views Maryann Matias PA-C Work Phone: Start: 10-01-2022 Incisional hernia (disorder) [facility] DO Comment on above: Robotic Assisted Lap aroscopic Ventral He, ROBOTIC INCISIONAL AND UMBILICAL HERNIA REPAIR, LYSIS OF ADHESIONS Start: 10-01-2022 Umbilical hernia (disorder) [facility] DO Comment on above: Robotic Assisted Lap aroscopic Ventral He, ROBOTIC INCISIONAL AND UMBILICAL HERNIA REPAIR, LYSIS OF ADHESIONS Start: 07-12-2022 Sphincteroplasty donna muscle transplant [facility] Curoverse Comment on above: Dr Draryl Rodriguez Start: 02-10-2022 H/O: ileostomy DAY VELAZQUEZ [...] End: 11-15-2021 Documentation of current medications Wendy Ailynandie MACKN Start: 10-04-2021 H/O: ileostomy DINORA KRUEGER MD Start: 09-08-2021 H/O: ileostomy ENZO MEDINA CHUTE BUILDER-WALKING DRAGLINE OPERATOR Start: 08-31-2021 Creation of loop ileostomy DAY VELAZQUEZ MD Start: 08-31-2021 Exploratory laparotomy DAY VELAZQUEZ MD Start: 08-26-2021 Perineorrhaphy [facility] Start: 06-22-2021 Basic metabolic pane l [...] elbow complete minimum 3 views Melissa Daniel CHUTE BUILDER.WALKING DRAGLINE OPERATOR Work Phone: Start: 10-12-2019 Dilation and curettage DAY VELAZQUEZ MD Start: 03-23-2017 Adult depression screening assessment Leelee Tobar CHUTE BUILDER.WALKING DRAGLINE OPERATOR Work Phone: Start: 06-25-2012 End: 07-04-2012 Bacteria identified in Throat by Culture Maria Esther Grover MD Start: 06-25-2012 End: 06-25-2012 Rapid strep test Maria Esther Grover MD Start: 03-02-2012 End: 03-02-2012 Follow Up Appt 1 month Maria Esther Grover MD Start: 01-28-2012 End: 03-02-2012 Pulmonary Fuction Test - complete Maria Esther Grover MD Barium enema DAY Arce Dilation and curettage NITISH VELAZQUEZ MD Extraction [...] Author Start: 2037 PAP TESTING PAP TESTING [facility] Start: 01-10-2035 Urine microalbumin profile [facility] Start: 04-27-2031 DTaP/Tdap/Td vaccine (3 - Td or Tdap) DTaP/Tdap/Td vaccine (3 - Td or Tdap) MCKENZIE Work Phone: Start: 04-27-2031 Urine microalbumin profile DTaP,Tdap,Td Vaccine (4 - Td or Tdap) [facility] Start: 04-23-2031 Urine microalbumin profile DTaP,Tdap,Td Vaccine (3 - Td or Tdap) [facility] Start: 03-12-2026 PAP TESTING PAP TESTING [facility] Start: 03-12-2026 Screening for malignant neoplasm of cervix [facility] Start: 09-06-2025 End: 09-06-2025 Follow-up encounter 09/06/2025 3:00 PM [facility] General Surgery BMI [address] [place] [address] Christine Ma APRN.[facility] [address] [place] [address] Followup visit in 3mo with Christine Ma APRN General Surgery BMI Comment on above: Followup visit in 3mo with Christine saucedo APRN Start: 08-04-2025 End: 08-04-2025 Patient encounter procedure 08/04/2025 2:00 PM EDT Office Visit General Surgery [address] [place] [address] Raiza Brasher MD [address] [facility] [address] [place] [address] I just want my meds back General Surgery Comment on above: I just want my meds back Start: 06-18-2025 [facility] Start: 06-13-2025 End: 06-13-2025 Patient encounter procedure General Surgery BMI Comment on above: non surgical medical weight managment i want to start my m eds again Start: 06-12-2025 Influenza vaccination [facility] Start: 05-31-2025 End: 05-31-2025 Patient encounter procedure 05/31/2025 11:10 AM EDT Office Visit OB/Gynecology [address] [place], [place] [id number] Marietta Lugo MD [address] [place], [place] [phone] IUD OB/Gynecology Comment on above: IUD Start: 05-23-2025 End: 05-23-2025 Patient encounter procedure 05/23/2025 1:30 PM EDT Office Visit OB/Gynecology [address] [place] [address] Tahmina Dumont MD [address] [place] [address] 6 wk follow up OB/Gynecology Comment on above: 6 wk follow up Start: 05-08-2025 End: 05-08-2025 Patient encounter procedure OB/Gynecology Comment on above: IUD insert 6 week PP- reschedul e IUD insertion after visit Start: 04-28-2025 End: 04-28-2025 Patient encounter procedure 04/28/2025 10:40 AM EDT Office Visit OB/Gynecology [address] [place] [address] Britney Griffin MD [address] [place] [address] 6 wk follow up OB/Gynecology Comment on above: 6 wk follow up Start: 04-19-2025 End: 04-19-2025 Patient encounter procedure 04/19/2025 1:30 PM EDT Office Visit Obstetrics/Gynecology [address] [place] [address] Rach Hoffman, CHUTE BUILDER.[facility] [address] [place] [address] 2wk follow up Obstetrics/Gynecology Comment on above: 2wk follow up Start: 03-23-2025 End: 03-23-2025 Admission to same day surgery center 03/23/2025 11:30 AM EDT - 03/23/2025 1:27 PM EDT Surgery [facility] [address] [address] [place] [address] Yovani Fry MD [address] [place] [address] SECTION REPEAT [facility] 3 L&D Comment on above: SECTION REPEAT Start: 03-23-2025 End: 03-23-2025 delivery only SECTION REPEAT Insulin controlled gestational diabetes mellitus (GDM) in third trimester (HCC) 03/23/2025 11:30 AM EDT [facility] Start: 03-23-2025 Subsequent hospital visit by physician 03/23/2025 11:30 AM EDT Hospital Encounter [place] [address] [address] [address] [place] [address] Yovani Fry MD [address] [place] [address] Insulin controlled gestational diabetes mellitus (GDM) in third trimester (HCC) [O24.414] [place] [address] L&D Comment on above: Insulin controlled gestational diabetes mellitus (GDM) in third trimester (HCC) [O24.414] Start: 03-22-2025 End: 03-22-2025 ambulatory 03/22/2025 11:30 AM EDT Results Only [facility] [address] [place] [address] [facility] Start: 03-21-2025 End: 06-20-2025 ANEMIA REFLEX PANEL ANEMIA REFLEX PANEL Lab Routine 38 weeks gestation of ([facility]) Supervision of high risk in third trimester ([facility]) Expected: 03/21/2025, Expires: 06/20/2025 [facility] Work Phone: Comment on above: Expected: 03/21/2025, Expires: Start: 03-21-2025 End: 03-21-2025 Patient encounter procedure OB/Gynecology Comment on above: NST NST/OB Start: 03-21-2025 End: 06-20-2025 SYPHILIS TREPONEMAL W/REFLEX SYPHILIS TREPONEMAL W/REFLEX Lab Routine 38 weeks gestation of ([facility]) Supervision of high risk in third trimester ([facility]) Expected: 03/21/2025, Expires: 06/20/2025 [facility] Comment on above: Expected: 03/21/2025, Expires: Start: 03-21-2025 End: 06-20-2025 TYPE + SCREEN TYPE + SCREEN Blood Bank Routine 38 weeks gestation of (HCC) Supervision of high risk in third trimester (HCC) Expected: 03/21/2025, Expires: 06/20/2025 [facility] Comment on above: Expected: 03/21/2025, Expires: Start: 03-14-2025 End: 03-14-2025 Patient encounter procedure OB/Gynecology Comment on above: NST NST/OB Start: 03-07-2025 End: 03-07-2025 Patient encounter procedure Maternal Medicine Comment on above: Growth Start: 03-02-2025 Patient discharge [facility] Start: 02-28-2025 End: 02-28-2025 Patient encounter procedure OB/Gynecology Comment on above: NST NST/OB Start: 02-27-2025 End: 02-27-2025 ambulatory 02/27/2025 9:00 AM EDT [facility] Endocrinology [address] [place] [address] Armando Burton, RD [address] [address] [id number] controlled gestational diabetes mellitus (GDM) in third trimester (HCC) [O24.410] Endocrinology Comment on above: [id number] controlled gestational diabet es mellitus (GDM) in third trimester (HCC) [O24.410] Start: 02-22-2025 End: 02-22-2025 Nutrition therapy 02/22/2025 4:00 PM EDT [facility] Nutrition Therapy [address] [address] Christine White, RD [address] [place] [address] Diet controlled gestational diabetes mellitus (GDM) in third trimester (HCC) [O24.410] Nutrition Therapy Comment on above: Diet controlled gestational diabetes angela litus (GDM) in third trimester (HCC) [O24.410] Start: 02-21-2025 End: 02-21-2025 Patient encounter procedure Maternal Medicine Comment on above: Growth Diet controlled gest ational diabetes mellitus (GDM) in third trimester ([facility]) [O24.410]; History of maternal fourth degree perineal laceration, currently ([facility]) [O09.299]; Supervision of high risk in third trimester ([facility]) [O09.93]; Obesity affecting in second trimester, unspecified obesity type ([facility]) [O99.212] Start: 02-16-2025 End: 02-16-2025 Patient encounter procedure OB/Gynecology Comment on above: NST only NST Start: 02-15-2025 End: 02-15-2025 Patient encounter procedure OB/Gynecology Comment on above: NST OB Routine Start: 02-06-2025 End: 02-06-2025 Patient encounter procedure Maternal Medicine Comment on above: growth OB ` Start: 01-20-2025 End: 01-20-2025 Patient encounter procedure 01/20/2025 11:20 AM EDT Routine Office Visit OB/Gynecology [address] [place] [address] Marietta Lugo MD [address] [place] [address] OB-review BS log OB/Gynecology Comment on above: OB-review BS log Start: 01-10-2025 End: 01-10-2025 Nursing evaluation of patient and report 01/10/2025 1:00 PM EDT Nurse Visit Endocrinology [address] [place] [id number] Mirta Santos, RN [address] [id number] Diet controlled gestational diabetes mellitus (GDM) in third trimester [O24.410] Endocrinology Comment on above: Diet controlled gestational diabetes angela litus (GDM) in third trimester [O24.410] Start: 01-10-2025 End: 01-10-2025 ambulatory 01/10/2025 11:00 AM EDT Results Only Viral Lizarr[facility] [address] [place] [address] Glucose Test [facility] Comment on above: Glucose Test Start: 01-10-2025 End: 01-10-2025 Patient encounter procedure Maternal Medicine Comment on above: Growth OB Routine OB Routine/ also wan ts to discuss the fact that she wants no more children US at 1030-OB Routin e/ also wants to discuss the fact that she wants no more children Start: 01-09-2025 Nonstress test [facility] Start: 01-09-2025 Obstetric monitoring [facility] Start: 01-09-2025 [facility] Start: 01-09-2025 Vital signs measurements [facility] Start: 01-09-2025 Patient discharge [facility] Start: 01-05-2025 Nonstress test [facility] Start: 01-05-2025 Obstetric monitoring [facility] Start: 01-05-2025 Vital signs measurements [facility] Start: 01-05-2025 [facility] Start: 01-05-2025 Patient discharge [facility] Start: 12-29-2024 End: 03-30-2025 GEST GLUC LOLA, 3-HR, 100 GM, FASTING GEST GLUC LOLA, 3-HR, 100 GM, FASTING Lab Routine Elevated glucose tolerance test Expected: 12/29/2024, Expires: 03/30/2025 [facility] Work Phone: Comment on above: Expected: 12/29/2024, Expires: Start: 12-29-2024 End: 12-29-2024 ambulatory [facility] Comment on above: Supervision of high risk in se cond trimester [O09.92] Start: 12-19-2024 End: 12-19-2024 ambulatory 12/19/2024 11:00 AM EDT Results Only Cardiology [address] [place] [address] History of syncope [Z87.898] Cardiology Comment on [...] weeks gestation of Expected: 12/15/2024, Expires: 03/16/2025 [facility] Comment on above: Expected: 12/15/2024, Expires: [...] for diabetes mellitus Expected: 12/15/2024, Expires: 12/15/2025 [facility] Work Phone: Comment on above: Expected: 12/15/2024, [...] weeks gestation of Expected: 12/15/2024, Expires: 12/15/2025 [facility] Comment on above: Expected: 12/15/2024, Expires: Start: 12-13-2024 End: 12-13-2024 Patient encounter procedure 12/13/2024 11:15 AM EST Routine Office Visit OB/Gynecology [address] [place] [address] Sandhya Reno APRN.CN [address] [place] [address] OB Routine OB/Gynecology Comment on above: OB Routine Start: 11-15-2024 End: 11-15-2024 Patient encounter procedure Maternal Medicine Comment on above: History of maternal fourth degree perine al laceration, currently [O09.299] OB Routine Start: 10-30-2024 Enteric precautions [facility] Start: 10-25-2024 [facility] Start: 10-20-2024 End: 10-20-2025 OBSTETRIC ULTRASOUND WHI OBSTETRIC ULTRASOUND WHI Anc Imaging Routine Supervision of high risk in second trimester Obesity affecting in second trimester, unspecified obesity type History of maternal fourth degree perineal laceration, currently Expected: 10/20/2024, Expires: 10/20/2025 [facility] Work Phone: Comment on above: Expected: 10/20/2024, Expires: Start: 10-20-2024 End: 10-20-2024 Patient encounter procedure 10/20/2024 10:40 AM EST Routine Office Visit OB/Gynecology [address] [place] [address] Tahmina Dumont MD [address] [place] [address] OB Routine OB/Gynecology Comment on above: OB Routine Start: 10-12-2024 [facility] Start: 10-05-2024 Subsequent hospital visit by physician 10/05/2024 Hospital Encounter Admitting [address] [place] [address] Og Mccullough MD [address] [place], [place] [id number] Excess skin [L98.7], Intertrigo [L30.4] Admitting Comment on above: Excess skin [L98.7], Intertrigo [L30.4] Start: 09-19-2024 End: 09-19-2024 Patient encounter procedure Maternal Medicine Comment on above: Nuchal OB First tri anatomy Start: 09-05-2024 End: 09-05-2024 ambulatory 09/05/2024 8:15 AM EST Results Only Viral [facility] Station [address] [facility] [address] [place] [address] Viral [facility] Start: 08-23-2024 End: 11-22-2024 CARRIER SCREEN, STANDARD CARRIER SCREEN, STANDARD Lab Routine 8 weeks gestation of Expected: 08/23/2024, Expires: 11/22/2024 [facility] Work Phone: Comment on above: Expected: 08/23/2024, Expires: Start: 08-18-2024 End: 11-17-2024 ANEMIA REFLEX PANEL ANEMIA REFLEX PANEL Lab Routine 7 weeks gestation of Expected: 08/18/2024, Expires: 11/17/2024 [facility] Work Phone: Comment on above: Expected: 08/18/2024, Expires: Start: 08-18-2024 End: 11-17-2024 Chromosome 21 trisomy [Presence] in Blood or Tissue by Cytogenetics [id number] PLUS Lab Routine 7 weeks gestation of Expected: 08/18/2024, Expires: 11/17/2024 [facility] Comment on above: Expected: 08/18/2024, Expires: Start: 08-18-2024 End: 11-17-2024 Hemoglobin A1c in Blood HEMOGLOBIN A1C Lab Routine 7 weeks gestation of Expected: 08/18/2024, Expires: 11/17/2024 [facility] Comment on above: Expected: 08/18/2024, Expires: Start: 08-18-2024 End: 11-17-2024 Hepatitis B virus surface Ag [Presence] in Serum HEPATITIS B SURFACE ANTIGEN Lab Routine 7 weeks gestation of Expected: 08/18/2024, Expires: 11/17/2024 [facility] Comment on above: Expected: 08/18/2024, Expires: Start: 08-18-2024 End: 11-17-2024 Hepatitis C virus Ab [Presence] in Serum HEPATITIS C ANTIBODY IA WITH CONFIRMATION Lab Routine 7 weeks gestation of Expected: 08/18/2024, Expires: 11/17/2024 [facility] Comment on above: Expected: 08/18/2024, Expires: Start: 08-18-2024 End: 11-17-2024 HIV 1+2 Ab [Presence] in Serum or Plasma by Immunoassay HIV 1/2 COMBO WITH REFLEX TO DIFFERENTIATION Lab Routine 7 weeks gestation of Expected: 08/18/2024, Expires: 11/17/2024 [facility] Comment on above: Expected: 08/18/2024, Expires: Start: 08-18-2024 End: 08-18-2025 NUCHAL TRANSLUCENCY WHI NUCHAL TRANSLUCENCY WHI Anc Imaging Routine 7 weeks gestation of Expected: 08/18/2024, Expires: 08/18/2025 [facility] Comment on above: Expected: 08/18/2024, Expires: Start: 08-18-2024 End: 11-17-2024 RUBELLA IGG ANTIBODY RUBELLA IGG ANTIBODY Lab Routine 7 weeks gestation of Expected: 08/18/2024, Expires: 11/17/2024 [facility] Comment on above: Expected: 08/18/2024, Expires: Start: 08-18-2024 End: 11-17-2024 SYPHILIS TREPONEMAL W/REFLEX SYPHILIS TREPONEMAL W/REFLEX Lab Routine 7 weeks gestation of Expected: 08/18/2024, Expires: 11/17/2024 [facility] Comment on above: Expected: 08/18/2024, Expires: Start: 08-18-2024 End: 11-17-2024 TYPE + SCREEN TYPE + SCREEN Blood Bank Routine 7 weeks gestation of Expected: 08/18/2024, Expires: 11/17/2024 [facility] Comment on above: Expected: 08/18/2024, Expires: Start: 08-18-2024 End: 08-18-2024 Patient encounter procedure 08/18/2024 8:15 AM EST Initial Office Visit OB/Gynecology [address] [place], [place] [id number] Jammie Funes APRN.WALKING DRAGLINE OPERATOR [address] [place], [place] [phone] NOB LMP 06/25 OB/Gynecology Comment on above: NOB LMP 06/25 Start: 08-08-2024 End: 08-08-2024 ambulatory 08/08/2024 12:45 PM EDT [facility] OB/Gynecology [address] [place], [place] [id number] Darryl Pedro, ASAEL.WALKING DRAGLINE OPERATOR [address] [place] [address] Missed the jessica today I didn't get a reminder OB/Gynecology Comment on above: Missed the jessica today I didn't get a helena nder Start: 08-07-2024 Subsequent hospital visit by physician 08/07/2024 Hospital Encounter Surgery Center [address] [address] Og Mccullough MD [address] [place], [place] [phone] Excess skin [L98.7], Intertrigo [L30.4] Surgery Center Comment on above: Excess skin [L98.7], Intertrigo [L30.4] Start: 08-04-2024 End: 08-04-2024 Patient encounter procedure 08/04/2024 8:00 AM EDT Office Visit Family [address] [id number] Cooper Gastelum APRN.WALKING DRAGLINE OPERATOR [address] [place], [place] [id number] Diarrhea x 4 days; Happens after she eats or drinks [facility] Comment on above: Diarrhea x 4 days; Happens after she eat s or drinks Start: 08-02-2024 End: 08-02-2024 Patient encounter procedure 08/02/2024 8:45 AM EDT Office Visit General Surgery [address] [place] [address] Raiza Brasher MD [address] [address] Follow-up disposition: Return in about 3 months (around 02/16/2024). General Surgery Comment on above: Follow-up disposition: Return in about 3 months (around 02/16/2024). Start: 07-29-2024 End: 07-29-2024 Patient encounter procedure 07/29/2024 3:00 PM EDT Office Visit General Surgery [address] [place] [address] Raiza Brasher MD [address] [address] Follow-up disposition: Return in about 3 months (around 02/16/2024). General Surgery Comment on above: Follow-up disposition: Return in about 3 months (around 02/16/2024). Start: 07-27-2024 End: 07-27-2024 ambulatory 07/27/2024 1:15 PM EDT Results Only [facility] [address] [place], [place] [phone] [facility] Start: 07-27-2024 End: 07-27-2024 Patient encounter procedure 07/27/2024 8:20 AM EDT Appointment Radiology [address] [place] [address] MRI BREAST WO/W IVCON BILATERAL Radiology Comment on above: MRI BREAST WO/W IVCON BILATERAL Start: 07-25-2024 End: 10-24-2024 Choriogonadotropin.beta subunit [Units/volume] in Serum or Plasma [facility] Work Phone: Comment on above: Expected: 07/25/2024, Expires: Start: 07-18-2024 End: 07-18-2024 ambulatory 07/18/2024 12:45 PM EDT [facility] OB/Gynecology [facility] [place], [place] [address] Darryl Pedro APRN.WALKING DRAGLINE OPERATOR [address] [place], [place] [id number] make cycle regular where I'm ovulating ever month OB/Gynecology Comment on above: make cycle regular where I'm ovulating e freddy month Start: 07-12-2024 End: 07-12-2024 FQHC visit new patient 07/12/2024 10:50 AM EDT Visit (SP) Office Hematology/Oncology [address] [address] [place] [address] [place], [place] [phone] New patient Hematology/Oncology Comment on above: New patient Start: 07-04-2024 End: 07-04-2024 Patient encounter procedure 07/04/2024 3:40 PM EDT Office Visit [facility] [address] [place] [id number] Cooper Gastelum APRN.WALKING DRAGLINE OPERATOR [address] [place], [place] [address] 4 week follow up meds [facility] Comment on above: 4 week follow up meds Start: 06-30-2024 End: 06-30-2024 ambulatory 06/30/2024 10:30 AM EDT Procedure Obstetrics/Gynecology [address] [address] Menorrhagia with irregular cycle [N92.1] Obstetrics/Gynecology Comment on above: Menorrhagia with irregular cycle [N92.1] Start: 06-28-2024 End: 06-28-2024 Patient encounter procedure [facility] Comment on above: Follow Up exam NO IMAGING; 6 month follow up breast exam Start: 06-27-2024 End: 06-27-2025 aPTT in Platelet poor plasma by Coagulation assay ACTIVATED PARTIAL THROMBOPLASTIN TIME Lab Routine Excess skin Expected: 06/27/2024, Expires: 06/27/2025 [facility] Comment on above: Expected: 06/27/2024, Expires: Start: 06-27-2024 End: 06-27-2025 CBC W Auto Differential panel - Blood COMPLETE BLOOD COUNT AND DIFFERENTIAL Lab Routine Excess skin Expected: 06/27/2024, Expires: 06/27/2025 [facility] Work Phone: Comment on above: Expected: 06/27/2024, Expires: Start: 06-27-2024 End: 06-27-2025 Chronic hepatitis differentiation between hepatitis B and C virus panel - Serum or Plasma HEP REMOTE PANEL BL Lab Routine Excess skin Expected: 06/27/2024, Expires: 06/27/2025 [facility] Comment on above: Expected: 06/27/2024, Expires: Start: 06-27-2024 End: 06-27-2025 Comprehensive metabolic 2000 panel - Serum or Plasma COMPREHENSIVE METABOLIC PANEL Lab Routine Excess skin Expected: 06/27/2024, Expires: 06/27/2025 [facility] Comment on above: Expected: 06/27/2024, Expires: Start: 06-27-2024 End: 06-27-2025 ECG COMPLETE ECG COMPLETE ECG Routine Excess skin Expected: 06/27/2024, Expires: 06/27/2025 [facility] Comment on above: Expected: 06/27/2024, Expires: Start: 06-27-2024 End: 06-27-2025 Hemoglobin A1c in Blood HEMOGLOBIN A1C Lab Routine Excess skin Expected: 06/27/2024, Expires: 06/27/2025 [facility] Comment on above: Expected: 06/27/2024, Expires: Start: 06-27-2024 End: 06-27-2025 HEP ACUTE PANEL/RNA HEP ACUTE PANEL/RNA Lab Routine Excess skin Expected: 06/27/2024, Expires: 06/27/2025 [facility] Comment on above: Expected: 06/27/2024, Expires: Start: 06-27-2024 End: 06-27-2025 HIV 1+2 Ab [Presence] in Serum or Plasma by Immunoassay HIV 1/2 COMBO WITH REFLEX TO DIFFERENTIATION Lab Routine Excess skin Expected: 06/27/2024, Expires: 06/27/2025 [facility] Comment on above: Expected: 06/27/2024, Expires: Start: 06-27-2024 End: 06-27-2025 NICOTINE/COTININE NICOTINE/COTININE Lab STAT Excess skin Expected: 06/27/2024, Expires: 06/27/2025 [facility] Comment on above: Expected: 06/27/2024, Expires: Start: 06-27-2024 End: 06-27-2024 Patient encounter procedure 06/27/2024 2:00 PM EDT Office Visit Plastic Surgery [address] [address] Darlin Fleming, ASAEL.WALKING DRAGLINE OPERATOR [address] [place], [place] [id number] excess skin after weight loss Plastic Surgery Comment on above: excess skin after weight loss Start: 06-27-2024 End: 06-27-2025 PT panel - Platelet poor plasma by Coagulation assay PROTHROMBIN TIME Lab Routine Excess skin Expected: 06/27/2024, Expires: 06/27/2025 [facility] Comment on above: Expected: 06/27/2024, Expires: Start: 06-12-2024 Covid-19 Vaccine ( season) Covid-19 Vaccine ( season) [facility] Start: 06-12-2024 Covid-19 Vaccine ( season) Covid-19 Vaccine ( season) [facility] Start: 06-12-2024 Influenza vaccination [facility] Start: 06-07-2024 End: 06-07-2024 Patient encounter procedure 06/07/2024 2:20 PM EDT Office Visit [facility] [address] [place], [place] [id number] Cooper Gastelum APRN.WALKING DRAGLINE OPERATOR [address] [place], [place] [id number] Follow up [facility] Comment on above: Follow up Start: 05-02-2024 End: 08-01-2024 Choriogonadotropin.beta subunit [Units/volume] in Serum or Plasma [facility] Comment on above: Expected: 05/02/2024, Expires: 4 Start: 05-02-2024 End: 05-02-2025 US Pelvis PELVIC US [facility] Anc Imaging Routine Menorrhagia with irregular cycle Expected: 05/02/2024, Expires: 05/02/2025 [facility] Work Phone: Comment on above: Expected: 05/02/2024, Expires: Start: 02-25-2024 End: 05-26-2024 ENTERIC BACTERIAL PANEL BY PCR [facility] Work Phone: Comment on above: Expected: 02/25/2024 (Approximate), Expi res: 05/26/2024 Start: 02-17-2024 End: 02-17-2024 Patient encounter procedure 02/17/2024 1:00 PM EDT Office Visit General Surgery [address] [place] [address] Raiza Brasher MD [address], [place] [address] Follow-up disposition: Return in about 3 months (around 02/16/2024). General Surgery Comment on above: Follow-up disposition: Return in about 3 months (around 02/16/2024). Start: 11-27-2023 End: 02-26-2024 DHEA-S BLD DHEA-S BLD Lab Routine Menorrhagia with regular cycle Hirsutism Acne, unspecified acne type Expected: 11/27/2023, Expires: 02/26/2024 [facility] Work Phone: Comment on above: Expected: 11/27/2023, Expires: Start: 11-27-2023 End: 02-26-2024 Estradiol (E2) [Mass/volume] in Serum or Plasma ESTRADIOL-17B BLD Lab Routine Menorrhagia with regular cycle Hirsutism Acne, unspecified acne type Expected: 11/27/2023, Expires: 02/26/2024 [facility] Work Phone: Comment on above: Expected: 11/27/2023, Expires: 4 Start: 11-27-2023 End: 02-26-2024 Follitropin [Units/volume] in Serum or Plasma FSH BLD Lab Routine Menorrhagia with regular cycle Hirsutism Acne, unspecified acne type Expected: 11/27/2023, Expires: 02/26/2024 [facility] Work Phone: Comment on above: Expected: 11/27/2023, Expires: Start: 11-27-2023 End: 02-26-2024 Lutropin [Units/volume] in Serum or Plasma LUTEINIZING HORMONE Lab Routine Menorrhagia with regular cycle Hirsutism Acne, unspecified acne type Expected: 11/27/2023, Expires: 02/26/2024 [facility] Work Phone: Comment on above: Expected: 11/27/2023, Expires: Start: 11-27-2023 End: 02-26-2024 Testosterone [Mass/volume] in Serum or Plasma TESTOSTERONE TOTAL Lab Routine Menorrhagia with regular cycle Hirsutism Acne, unspecified acne type Expected: 11/27/2023, Expires: 02/26/2024 [facility] Work Phone: Comment on above: Expected: 11/27/2023, Expires: 4 Start: 11-27-2023 End: 11-27-2024 US Pelvis PELVIC US [facility] Anc Imaging Routine Menorrhagia with regular cycle Hirsutism Acne, unspecified acne type Expected: 11/27/2023, Expires: 11/27/2024 [facility] Work Phone: Comment on above: Expected: 11/27/2023, Expires: 5 Start: 11-24-2023 End: 11-24-2023 [facility] Start: 11-18-2023 [facility] Start: 10-12-2023 Behavioral Health Screening Behavioral Health Screening [facility] Start: 10-12-2023 Depression Assessment Depression Assessment [facility] Start: 08-20-2023 [facility] Start: 08-05-2023 End: 11-04-2023 CBC panel - Blood by Automated count CBC Lab Routine Pelvic floor dysfunction Expected: 08/05/2023 (Approximate), Expires: 11/04/2023 [facility] Work Phone: Comment on above: Expected: 08/05/2023 (Approximate), Expi res: 11/04/2023 Start: 08-05-2023 End: 11-04-2023 Comprehensive metabolic 2000 panel - Serum or Plasma COMP METABOLIC PANEL Lab Routine Pelvic floor dysfunction Expected: 08/05/2023, Expires: 11/04/2023 [facility] Work Phone: Comment on above: Expected: 08/05/2023, Expires: Start: 07-22-2023 [facility] Start: 06-12-2023 Covid-19 Vaccine () Covid-19 Vaccine () [facility] Start: 06-12-2023 Influenza vaccination [facility] Start: 05-19-2023 Patient discharge [facility] Start: 05-18-2023 End: 05-18-2023 Following clinical pathway protocol [facility] Start: 05-18-2023 Ambulation without limitation [facility] Start: 05-18-2023 Measuring intake and output [facility] Start: 05-18-2023 Taking patient vital signs [facility] Start: 05-18-2023 [facility] Start: 05-18-2023 Urinalysis complete panel - Urine [facility] Start: 05-18-2023 Admission procedure [facility] Start: 04-30-2023 Suicide precautions [facility] Start: 03-19-2023 End: 05-19-2023 Bacteria identified in Urine by Culture URINE CULTURE Microbiology Routine Frequent UTI Expected: 03/19/2023, Expires: 05/19/2023 [facility] Work Phone: Comment on above: Expected: 03/19/2023, Expires: 3 Start: 11-06-2022 FUV, Provider: Darryl Rodriguez, Status: Pen, Time: 1:00 PM FUV, Provider: Darryl Rodriguez, Status: Pen, Time: 1:00 PM [facility] Work Phone: Start: 10-12-2022 DEPRESSION ASSESSMENT DEPRESSION ASSESSMENT [facility] Start: 09-09-2022 End: 11-09-2022 Comprehensive metabolic 2000 panel - Serum or Plasma COMP METABOLIC PANEL Lab Routine Weight gain Expected: 09/09/2022, Expires: 11/09/2022 [facility] Work Phone: Comment on above: Expected: 09/09/2022, Expires: 3 Start: 09-09-2022 End: 11-09-2022 Hemoglobin A1c in Blood HGB A1C Lab Routine Encounter for screening for diabetes mellitus Expected: 09/09/2022, Expires: 11/09/2022 [facility] Work Phone: Comment on above: Expected: 09/09/2022, Expires: 3 Start: 08-11-2022 FUV, Provider: Darryl Rodriguez, Status: Foster, Time: 10:20 AM FUV, Provider: Darryl Rodriguez, Status: Pen, Time: 10:20 AM [facility] [place] Work Phone: Start: 06-12-2022 Influenza vaccination INFLUENZA (#1) [facility] Start: 2022 HPV Vaccine (1 - 3-dose SCDM series) HPV Vaccine (1 - 3-dose SCDM series) [facility] Start: 04-24-2022 End: 06-24-2022 Comprehensive metabolic 2000 panel - Serum or Plasma [facility] Work Phone: Comment on above: Expected: 04/24/2022, Expires: 2 Start: 04-24-2022 End: 06-24-2022 Thyrotropin [Units/volume] in Serum or Plasma [facility] Work Phone: Comment on above: Expected: 04/24/2022, Expires: Start: 12-09-2021 End: 12-09-2021 Patient encounter procedure Appointment [facility] Work Phone: Start: 10-12-2021 DEPRESSION ASSESSMENT DEPRESSION ASSESSMENT [facility] Start: 06-24-2021 End: 06-24-2021 Patient encounter procedure 06/24/2021 Office Visit Gynecologic Oncology Yemi Ramirez MD [address] [place] [address], [address] [place] [address] [phone] Post-operative state (Primary Dx) [facility] 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 Comment on above: Post-operative state (Primary Dx) Start: 06-12-2021 Influenza vaccination Flu vaccine (#1) [facility] Work Phone: Start: 03-23-2018 Adult depression screening assessment DEPRESSION SCREENING [facility] Start: 02-10-2017 End: 02-11-2017 Follow Up Appt 2 weeks Follow Up Appt 2 weeks [facility] [employer] Work Phone: Start: 01-22-2017 End: 01-23-2017 Follow Up Appt Other Follow Up Appt Other [facility] [employer] Work Phone: Start: 01-08-2017 End: 01-08-2017 Follow Up Appt 2 weeks Follow Up Appt 2 weeks [facility] [employer] Work Phone: Start: 2016 PAP TESTING PAP TESTING [facility] Start: 2016 Screening for malignant neoplasm of cervix [facility] Work Phone: Start: 2014 Hepatitis B Vaccine (1 of 3 - 19+ 3-dose series) Hepatitis B Vaccine (1 of 3 - 19+ 3-dose series) [facility] Start: 2014 Urine microalbumin profile [facility] Start: 2013 Depression Screening Depression Screening [facility] Start: 2013 HEPATITIS C SCREENING HEPATITIS C SCREENING [facility] Start: 2013 HIV SCREENING HIV SCREENING [facility] Start: 06-25-2012 End: 07-04-2012 Bacteria identified in Throat by Culture *CUT - Throat Culture [facility] [employer] Work Phone: Start: 06-25-2012 End: 06-25-2012 Rapid strep test Rapid Strep (Office) [facility] [employer] Work Phone: Start: 03-02-2012 End: 03-02-2012 Follow Up Appt 1 month Follow Up Appt 1 month [facility] [employer] Work Phone: Start: 01-28-2012 End: 03-02-2012 Pulmonary Fuction Test - complete Pulmonary Fuction Test - complete [facility] [employer] Work Phone: Start: 2010 HIV screening HIV screen [facility] Work Phone: Start: 2009 PEDS TO ADULT TRANSITION ANNUAL ASSESSMENT PEDS TO ADULT TRANSITION ANNUAL ASSESSMENT [facility] Start: 2007 COVID-19 Vaccine (1) COVID-19 Vaccine (1) [facility] Work Phone: Start: 2007 PEDS TO ADULT TRANSITION INITIAL DISCUSSION PEDS TO ADULT TRANSITION INITIAL DISCUSSION [facility] Start: 2006 HPV vaccine (1 - 2-dose series) HPV vaccine (1 - 2-dose series) [facility] Start: 2001 Pneumococcal vaccination Pneumococcal Vaccine (1 of 2 - PCV) [facility] Start: 1996 Varicella vaccine (1 of 2 - 2-dose childhood series) Varicella vaccine (1 of 2 - 2-dose childhood series) [facility] Work Phone: Start: 1995 COVID-19 VACCINE (#1) COVID-19 VACCINE (#1) [facility] Start: 1995 HEPATITIS B (1 of 3 - 3-dose series) HEPATITIS B (1 of 3 - 3-dose series) [facility] Start: 1995 Hepatitis B Vaccine (1 of 3 - 3-dose series) Hepatitis B Vaccine (1 of 3 - 3-dose series) [facility] Start: 1995 Hepatitis C screening Hepatitis C screen [facility] Work Phone: [employer]ULT [employer] Endoscopy Routine Pelvic floor dysfunction Rectal vaginal fistula 08/05/2023 [facility] Work Phone: Bacteria identified in Urine by Culture URINE CULTURE Microbiology Routine Pelvic pain 04/18/2023 3:24 PM EDT [facility] Work Phone: Bacteria identified in Urine by Culture URINE CULTURE Microbiology Routine Recurrent UTI 05/14/2023 11:38 AM EDT [facility] Work Phone: Bacteria identified in Urine by Culture [facility] Bacteria identified in Urine by Culture URINE CULTURE Microbiology Routine Suprapubic pressure Ordered: 05/11/2024 [facility] Work Phone: Comment on above: Ordered: 05/11/2024 Bacteria identified in Urine by Culture URINE CULTURE Microbiology Routine 7 weeks gestation of 08/18/2024 9:03 AM [facility] Bacteria identified in Urine by Culture URINE CULTURE Microbiology Routine Dysuria 09/19/2024 9:17 AM [facility] Work Phone: Bacteria identified in Urine by Culture BACTERIAL CULTURE, URINE Microbiology Routine Dysuria Ordered: 06/09/2025 [facility] Comment on above: Ordered: 06/09/2025 BACTERIAL VAGINOSIS NAAT BACTERI AL VAGINOSIS NAAT Lab Routine White vaginal discharge 06/23/2023 3:05 PM EDT [facility] Work Phone: BACTERIAL VAGINOSIS NAAT BACTERI AL VAGINOSIS NAAT Lab Routine Vaginal discharge Ordered: 05/11/2024 [facility] Comment on above: Ordered: 05/11/2024 BACTERIAL VAGINOSIS NAAT BACTERI AL VAGINOSIS NAAT Lab Routine Vaginal discharge 7 weeks gestation of 08/18/2024 9:03 AM [facility] BACTERIAL VAGINOSIS NAAT BACTERI AL VAGINOSIS NAAT Lab Routine Screening for STD (sexually transmitted disease) Ordered: 06/09/2025 [facility] Comment on above: Ordered: 06/09/2025 JOJO/TRICHOMONAS NAAT JOJO /TRICHOMONAS NAAT Lab Routine White vaginal discharge 06/23/2023 3:05 PM EDT [facility] Work Phone: JOJO/TRICHOMONAS NAAT JOJO /TRICHOMONAS NAAT Lab Routine Vaginal discharge 12/09/2023 1:02 PM EST [facility] Work Phone: JOJO/TRICHOMONAS NAAT JOJO /TRICHOMONAS NAAT Lab Routine Vaginal discharge Ordered: 05/11/2024 [facility] Comment on above: Ordered: 05/11/2024 JOJO/TRICHOMONAS NAAT JOJO /TRICHOMONAS NAAT Lab Routine Vaginal discharge 7 weeks gestation of 08/18/2024 9:03 AM EST [facility] JOJO/TRICHOMONAS NAAT JOJO /TRICHOMONAS NAAT Lab Routine Screening for STD (sexually transmitted disease) Ordered: 06/09/2025 [facility] Comment on above: Ordered: 06/09/2025 delivery on ly w/ care DELIVERY+ CARE Procedures Routine Gestational diabetes mellitus (GDM) requiring insulin (HCC) Ordered: 02/21/2025 [facility] Work Phone: Comment on above: Ordered: 02/21/2025 Chlamydia trachomatis+Neisseria gonorrhoeae DNA [Presence] in Unspecified specimen by SANJEEV with probe detection GONORRHEA/CHLAMYDIA NAAT Lab Routine White vaginal discharge 06/23/2023 3:05 PM EDT [facility] Work Phone: Chlamydia trachomatis+Neisseria gonorrhoeae DNA [Presence] in Unspecified specimen by SANJEEV with probe detection GONORRHEA/CHLAMYDIA NAAT Lab Routine Vaginal discharge 12/09/2023 1:02 PM EST [facility] Work Phone: Chlamydia trachomatis+Neisseria gonorrhoeae DNA [Presence] in Unspecified specimen by SANJEEV with probe detection GONORRHEA/CHLAMYDIA NAAT Lab Routine Vaginal discharge Ordered: 05/11/2024 [facility] Comment on above: Ordered: 05/11/2024 Chlamydia trachomatis+Neisseria gonorrhoeae DNA [Presence] in Unspecified specimen by SANJEEV with probe detection GONORRHEA/CHLAMYDIA NAAT Lab Routine 7 weeks gestation of 08/18/2024 9:03 AM EST [facility] Chlamydia trachomatis+Neisseria gonorrhoeae DNA [Presence] in Unspecified specimen by SANJEEV with probe detection GONORRHEA/CHLAMYDIA NAAT Lab Routine Screening for STD (sexually transmitted disease) Ordered: 06/09/2025 [facility] Work Phone: Comment on above: Ordered: 06/09/2025 COVID & INFLUENZA A/ B & RSV PCR, ROUTINE COVID & INFLUENZA A/B & RSV PCR, ROUTINE Microbiology Routine URI, acute 09/15/2024 1:31 PM EST [facility] Work Phone: End: 01-01-2024 Ct abdomen w/contrast material CT ABDOMEN W IVCON Radiology Routine Hernia of abdominal wall 1 Occurrences starting 12/02/2022 until 01/01/2024 [facility] Work Phone: Comment on above: 1 Occurrences starting 12/02/2022 until 01/01/2024 End: 06-09-2021 Culture, Urine Culture, Urine Microbiology STAT One Time for 1 Occurrences starting 06/09/2021 until 06/09/2021 [facility] Work Phone: Comment on above: One Time for 1 Occurrences starting 05/13 until 06/09/2021 Culture, Urine Culture, Urine Microbiology STAT 06/09/2021 12:37 PM EDT [facility] Work Phone: End: 07-13-2025 ECG COMPLETE ECG COMPLETE ECG Routine History of syncope 1 Occurrences starting 07/13/2024 until 07/13/2025 [facility] Work Phone: Comment on above: 1 Occurrences starting 07/13/2024 until 07/13/2025 Excision excessive s kin & subq tissue abdomen ABDOMINOPLASTY UMBILICAL TRANSPOSITION AND FASCIAL PLICATION Excess skin [facility] Excision skin abd infraumbilical panniculectomy PANNICULECTOMY Excess skin [facility] nonstress test NON-S TRESS TEST Procedures Routine 29 weeks gestation of ([facility]) Decreased movements in second trimester, single or unspecified fetus ([facility]) Ordered: 01/20/2025 [facility] Work Phone: Comment on above: Ordered: 01/20/2025 End: 05-07-2025 nonstress test NON-STRESS TEST Procedures Routine Diet controlled gestational diabetes mellitus (GDM) in third trimester ([facility]) Supervision of high risk in third trimester ([facility]) Obesity affecting in second trimester, unspecified obesity type ([facility]) Once per week for 10 Occurrences starting 02/06/2025 until 05/07/2025 [facility] Work Phone: Comment on above: Once per week for 10 Occurrences startin g 02/06/2025 until 05/07/2025 GEST GLUC LOLA, 3-HR, 100 GM, FASTING GEST GLUC LOLA, 3-HR, 100 GM, FASTING Lab Routine Elevated glucose tolerance test 12/30/2024 7:58 AM EDT [facility] Insertion intrauteri ne device iud INSERT INTRAUTERINE DEVICE Procedures Routine Encounter for initial prescription of intrauterine contraceptive device (IUD) Ordered: 05/08/2025 [facility] Work Phone: Comment on above: Ordered: 05/08/2025 End: 07-28-2025 MR Breast - bilateral WO and W contrast IV MRI BREAST WO/W IVCON BILATERAL Radiology Routine Discharge from both nipples Fibrocystic breast changes of both breasts Family history of breast cancer 1 Occurrences starting 06/28/2024 until 07/28/2025 [facility] Work Phone: Comment on above: 1 Occurrences starting 06/28/2024 until 07/28/2025 End: 09-22-2024 Mri abdomen w/o & w/contrast material MRI LIVER WO/W IVCON Radiology Routine Liver lesion 1 Occurrences starting 08/24/2023 until 09/22/2024 [facility] Work Phone: Comment on above: 1 Occurrences starting 08/24/2023 until 09/22/2024 End: 04-07-2025 OBSTETRIC ULTRASOUND WHI OBSTETRIC ULTRASOUND WHI Anc Imaging Routine Obesity affecting in second trimester, unspecified obesity type History of maternal fourth degree perineal laceration, currently Once per month for 6 Occurrences starting 11/15/2024 until 04/07/2025 [facility] Work Phone: Comment on above: Once per month for 6 Occurrences startin g 11/15/2024 until 04/07/2025 End: 04-01-2025 OBSTETRIC ULTRASOUND WHI OBSTETRIC ULTRASOUND WHI Anc Imaging Routine Diet controlled gestational diabetes mellitus (GDM) in third trimester Once per month for 5 Occurrences starting 12/30/2024 until 04/01/2025 [facility] Work Phone: Comment on above: Once per month for 5 Occurrences startin g 12/30/2024 until 04/01/2025 Oxygen therapy [[facility] Data Set] Initiate Oxygen Therapy Protocol Respiratory Care Routine Daily until discontinued starting 05/16/2021 [employer] Work Phone: Comment on above: Daily until discontinued starting 2020 Patient Education \cps-sql1\CPS_ PtEducatio n\CDC_FALL_PREVENTION.pd f [facility] Work Phone: Patient Education [facility] Work Phone: Patient referral [facility] Work Phone: REFER FOR ADMIT INTERVIEW REFER FOR ADMIT INTERVIEW Procedures Routine Pelvic floor dysfunction Ordered: 07/28/2023 [facility] Work Phone: Comment on above: Ordered: 07/28/2023 ROUTINE, GR OUP B STREPTOCOCCUS BY PCR ROUTINE, GROUP B STREPTOCOCCUS BY PCR Microbiology Routine Supervision of high risk in third trimester ([facility]) Ordered: 03/07/2025 [facility] Work Phone: Comment on above: Ordered: 03/07/2025 End: 05-16-2021 Surgical Pathology Surgical Pathology Lab Routine Once for 1 Occurrences starting 05/16/2021 until 05/16/2021 [employer] [facility] Work Phone: Comment on above: Once for 1 Occurrences starting 05/16/20 until 05/16/2021 Surgical Pathology Surgical Path ology Lab Routine 05/16/2021 8:55 AM EDT [facility] [facility] Work Phone: UA DIP, URINE (POC) UA DIP, URIN E (POC) Lab Routine Dysuria Ordered: 06/09/2025 [facility] Comment on above: Ordered: 06/09/2025 URINE OB DIP B/O URINE OB DIP B/ O Lab Routine Supervision of high risk in third trimester ([facility]) Diet controlled gestational diabetes mellitus (GDM) in third trimester ([facility]) History of maternal fourth degree perineal laceration, currently ([facility]) Obesity affecting in second trimester, unspecified obesity type ([facility]) Ordered: 02/15/2025 [facility] Work Phone: Comment on above: Ordered: 02/15/2025 [facility] pelvic nonobstetr ic image dcmtn limited/f/u US FEMALE PELVIS TRANSABD LTD Radiology Routine Complication of intrauterine device (IUD), unspecified complication, initial encounter ([facility]) 08/21/2023 3:46 PM EST [facility] Work Phone: Us transvaginal US FEMALE PELVIS TRANSVAG Radiology Routine Complication of intrauterine device (IUD), unspecified complication, initial encounter ([facility]) 08/21/2023 3:46 PM EST [facility] Work Phone: End: 06-09-2021 VAGINAL PATHOGENS DNA PANEL VAGINAL PATHOGENS DNA PANEL Microbiology STAT One Time for 1 Occurrences starting 06/09/2021 until 06/09/2021 [facility] Work Phone: Comment on above: One Time for 1 Occurrences starting 05/13 until 06/09/2021 VAGINAL PATHOGENS DN A PANEL VAGINAL PATHOGENS DNA PANEL Microbiology STAT 06/09/2021 1:23 PM EDT [facility] Work Phone: [facility] Immunizations Immunization Date Immunization Notes Care Provider Huy acevedo 01-10-2025 tetanus toxoid, redu shoshana diphtheria toxoid, and acellular pertussis vaccine, adsorbed i [facility] 04-27-2021 tetanus toxoid, redu shoshana diphtheria toxoid, and acellular pertussis vaccine, adsorbed [facility] 04-23-2021 tetanus toxoid, redu shoshana diphtheria toxoid, and acellular pertussis vaccine, adsorbed [facility] DO [facility] 04-10-2017 tetanus toxoid, redu shoshana diphtheria toxoid, and acellular pertussis vaccine, adsorbed [facility] DO [facility] Payers Date Payer Category Payer Self-pay [id number] 2022 Unknown [id number] 2021 Unknown 2021 Unknown [id number] 2021 Unknown [id number] 2021 Medicaid [place] MED[place] [id number] 2021-[facility] [phone] [facility] [address] [place] [address] Medicaid [id number] 2017 Medicaid [id number] 1.13.159.2.7.3.6 [id number] 2016 Unknown [id number] 1.2.840.449990.1.13.239.2.7.3.6 [id number] 1995 Unknown [id number] 2.16840.1.328418.3.579.2.356 1995 Unknown [id number] 2.16840.1.335465.3.579.2.356 1995 Unknown [id number] 2.16840.1.685657.3.579.2.356 1995 Unknown [id number] 2.16.840.1.756154.3.579.2.356 1995 Unknown [id number] 2.16.840.1.402156.3.579.2. 1995 Unknown [id number] 2.840.1.277788.3.579.2. 1995 Unknown [id number] 2.840.1.729073.3.579.2. 1995 Unknown [id number] 2.840.1.922441.3.579.2. 1995 Unknown [id number] 2.840.1.129773.3.579.2. 1995 Unknown [id number] 2.840.1.373078.3.579.2. 1995 Unknown [id number] 2.840.1.680262.3.579.2. 1995 Unknown [id number] 2.840.1.642535.3.579.2. 1995 Unknown [id number] 2.840.1.865258.3.579.2. 1995 Unknown [id number] 2.840.1.720129.3.579.2. 1995 Unknown [id number] 2840.1.635248.3.579.2. 1995 Unknown [id number] 2840.1.077932.3.579.2. 1995 Unknown [id number] 2840.1.005098.3.579.2. 1995 Unknown [id number] 2840.1.544469.3.579.2. 1995 Unknown [id number] 2.840.1.670812.3.579.2. 1995 Unknown [id number] 2840.1.008396.3.579.2. 1995 Unknown [id number] 2840.1.952432.3.579.2.651 Unknown [id number] 2.16.840.1.726806.3.579.2.462 Unknown [id number] 2.16.840.1.013462.3.579.2.462 Unknown [id number] 2.16.840.1.911642.3.579.2.462 Unknown [id number] 2.16.840.1.197995.3.579.2.462 Unknown [id number] 2.16.840.1.659134.3.579.2.462 Unknown [id number] 2.16.840.1.986091.3.579.2.462 Unknown [id number] 2.16.840.1.154237.3.579.2.462 Unknown [id number] 2.16.840.1.006382.3.579.2.462 Unknown [id number] 2.16.840.1.858452.3.579.2.462 Unknown [id number] 2.16.840.1.465753.3.579.2.462 Social History Date Type Detail Facility Start: 05-16-2021 End: 06-18-2025 Tobacco smoking status [facility] Former smoker [facility] Work Phone: End: 05-16-2017 History of tobacco use Current smoker [facility] Start: 05-16-2021 End: 08-17-2024 Tobacco use and exposure Never used [facility] Start: 05-16-2021 End: 06-09-2025 Alcohol intake Ex-drinker (finding) [facility] Work Phone: Start: 1995 Sex Assigned At Not on file [facility] Work Phone: Start: 11-29-2020 End: 07-02-2022 Exposure to SARS-CoV-2 (event) Not sure [facility] Start: 07-25-2021 Never smoked t obacco (finding) [facility] Sex Assigned At [facility] Start: 04-30-2023 End: 11-24-2023 Assertion Unknown if ever smoked [facility] Work Phone: History of tobacco use Cigarette Smoker C [facility] Start: 12-29-2020 End: 04-24-2022 Alcohol intake Current non-drinker of alcohol (finding) [facility] Start: 05-26-2017 End: 05-22-2022 Tobacco Comment 5 to 6 cigarettes [facility] Start: 09-07-2022 History SDOH Alcohol Frequency 2 [facility] Start: 09-07-2022 History SDOH Alcohol Std Drinks 1 [facility] Start: 09-07-2022 History SDOH Social Connections Phone 5 [facility] Start: 09-07-2022 History SDOH Social Connections Living 3 [facility] Start: 09-07-2022 History SDOH Physica l Activity DPW 0 [facility] Start: 09-07-2022 End: 02-24-2023 History of Social function [facility] Start: 09-07-2022 End: 02-24-2023 Social connection and isolation panel [facility] Do you belong to any clubs or organizations such as mandaen groups, unions, fraternal or athletic groups, or school groups? No [facility] Are you now , , , , never or living with a partner? [facility] How often to you hav e a drink containing alcohol? Monthly or less [facility] How many standard drinks containing alcohol do you have on a typical day? 1 or 2 [facility] How often do you hav e 6 or more drinks on 1 occasion? Never [facility] Start: 09-12-2012 How hard is it for y ou to pay for the very basics like food, housing, medical care, and heating Not hard at all [facility] Do you feel stress - tense, restless, nervous, or anxious, or unable to sleep at night because your mind is troubled all the time - these days [OSQ] To some extent [facility] (I/We) worried ant er (my/our) food would run out before (I/we) got money to buy more. Never true [facility] Start: 09-16-2020 None [facility] Start: 09-16-2020 Spouse/ Signif icant Other [facility] Start: 04-05-2020 Non-smoker [facility] Start: 1995 Sex Assigned At Female [facility] Start: 07-29-2023 Gender identity Identifies as female gender (finding) [facility] Start: 07-29-2023 Sexual orientation Heterosexua l (finding) [facility] Start: 10-01-2023 End: 06-25-2024 Tobacco smoking status NHIS Occasional tobacco smoker [facility] Work Phone: Start: 10-28-2023 End: 07-25-2024 Alcohol intake Current drinker of alcohol (finding) [facility] Start: 10-01-2023 Tobacco Comment Stopped smokin g cigarettes, just uses vape now [facility] Start: 10-01-2023 Alcohol Comment monthly [facility] Are you now , , , , never or living with a partner? Refused [facility] (I/We) worried ant er (my/our) food would run out before (I/we) got money to buy more. DK or Refused [facility] Are you now , , , , never or living with a partner? [facility] Do you feel stress - tense, restless, nervous, or anxious, or unable to sleep at night because your mind is troubled all the time - these days [OSQ] Only a little [facility] Start: 08-17-2024 Education 13 [facility] Start: 08-17-2024 Tobacco Comment Stopped smokin g cigarettes, [facility] Start: 07-09-2024 [facility] Start: 01-05-2025 End: 01-09-2025 Sex Female (finding) [facility] NEGATED: Highlighted row [facility] Medical Equipment Procedure Code Equipment Code Equipment Origin al Text Equipment Identifier Dates Robotic Assisted Laparoscopic Ventral He Unknown 10/01/22 Unknown Unknown FDA Start: 10-01-2022 Robotic Assisted Laparoscopic Ventral He Unknown 10/01/22 Unknown Unknown FDA Start: 10-01-2022 Robotic Assisted Laparoscopic Ventral He Unknown 10/01/22 Unknown Unknown FDA Start: 10-01-2022 Use as directed to check glucose levels up to seven times daily. [id number] Start: 12-30-2024 End: 03-24-2025 Use as directed to check glucose levels up to seven times daily. [id number] Start: 12-30-2024 End: 03-24-2025 Goals Date Patient Goal Desired Activity /State Personal health goal Personal health goal Functional Status Date Assessment Result Facility 03-25-2025 Are you deaf, or do you have serious difficulty hearing No 03/25/2025 1:25 PM Armando Bolden RN No [facility] 03-25-2025 Are you blind, or do you have serious difficulty seeing, even when wearing glasses No 03/25/2025 1:25 PM Armando Bolden RN No [facility] 03-25-2025 Do you have serious difficulty walking or climbing stairs No 03/25/2025 1:25 PM Armando Bolden RN No [facility] 03-25-2025 Do you have difficul ty dressing or bathing No 03/25/2025 1:25 PM Armando Bolden RN No [facility] 03-25-2025 Because of a physica l, mental, or emotional condition, do you have difficulty doing errands alone such as visiting a physician's office or shopping No 03/25/2025 1:25 PM Armando Bolden RN No [facility] 05-19-2023 Functional status Ambulates [facility] Work Phone: 05-18-2023 Functional status Tolerates Activity Fair [facility] Work Phone: 10-01-2022 Functional Status Awake [facility] 10-01-2022 Functional Status [facility] 10-01-2022 Functional Status Maintained [facility] 02-14-2022 Functional Status [facility] 02-14-2022 Functional Status [facility] 02-14-2022 Functional Status [facility] 02-13-2022 Functional Status [facility] 02-13-2022 Functional Status [facility] 02-13-2022 Functional Status [facility] 02-13-2022 Functional Status [facility] 02-13-2022 Functional Status [facility] 02-12-2022 Functional Status [facility] 02-12-2022 Functional Status [facility] 02-12-2022 Functional Status [facility] 02-11-2022 Functional Status [facility] 02-11-2022 Functional Status [facility] 02-10-2022 Functional Status [facility] 02-10-2022 Functional Status [facility] Mental Status Date Assessment Result Facility 03-25-2025 Because of a physica l, mental, or emotional condition, do you have serious difficulty concentrating, remembering, or making decisions No 03/25/2025 1:25 PM EDT Armando Barahona RN [facility] 11-18-2023 Cognitive function Voice/Name [facility] Work Phone: 05-19-2023 Cognitive function Voice/Name [facility] Work Phone: 10-01-2022 Mental Status Oriented x [facility] 10-01-[facility]22 [facility] 02-14-2022 [facility] 02-13-[facility]22 [facility]2020 to 08-21-2025 Note Date & Type Note Facility 08-21-2025 Note HNO ID: [id number] Author: OBDULIA BILLINGS APRN.WALKING DRAGLINE OPERATOR Service: ? Author Type: Nurse Practitioner Type: Progress Notes Filed: 08/21/2025 16:13 Note Text: Telemedicine Visit - Distance Health Virtual Visit Note Patient seen on [employer] Video Visit platform. Location of patient: [place] MD I have communicated my name and active licensure. The patient's identity and physical location were verified at the time of this visit. Either the patient or their legal food products sales representative has been informed of the risks and benefits of -- and alternatives to -- treatment through a remote evaluation and consents to proceed with the evaluation remotely. Subjective The patient is a 30-year-old female presenting for evaluation of a right nasal piercing site infection. Right Nasal Piercing Infection: - New piercing placed 2 weeks ago. - Onset of symptoms yesterday. - Noted swelling, redness, and green purulent discharge. - Pain rated as 4/10. - Tenderness to touch. - Associated nasal congestion, chills, and fatigue. - Applying warm compresses 3 times daily and taking ibuprofen PRN. - Denies or . Constitutional: (+) fatigue, (+) chills, (-) fever Ears/Nose/Mouth/Throat: (+) nasal congestion, (-) rhinorrhea Skin: (+) right nasal swelling, (+) right nasal erythema, (+) right nasal purulent drainage, (+) right nasal pain Objective Last menstrual period 06/27/2025, not currently . General: No acute distress. HEENT: Right nasal piercing with localized erythema, localized swelling, TTP, and increased calor; no discharge noted/appreciated. Negative for lymphatic streaking. Assessment AND Plan 1. Infected nasal piercing (S01.23XA) 2. Localized bacterial skin infection (L08.9) - Acute infection of right nasal piercing site with erythema, swelling, tenderness, and purulent drainage noted 2 weeks post-piercing. - Start doxycycline BID for 5 days. - Start mupirocin topical ointment to affected area BID; instructed to apply with Q-tip. - Advised removal of piercing to facilitate healing; if not removed, emphasized importance of meticulous cleaning and topical application. - Continue warm compresses to affected area. - Provided education on proper administration of doxycycline: take with full glass of water and remain upright for 1 hour post-dose. - Advised to seek in-person evaluation if no improvement within 2-3 days or if symptoms worsen. Recording using [employer] software for draft documentation of the visit was discussed with the patient/authorized food products sales representative; all questions welcomed and answered. Patient/authorized food products sales representative agreed to proceed ===== IF YOUR SYMPTOMS PERSIST OR WORSENING IN THE NEXT 2-3 DAYS THEN PLEASE FOLLOW UP WITH YOUR PCP - Red flags discussed for need for in person care - All questions answered History and Record Review External record(s) reviewed: prior outpatient record. Differential Diagnoses - Localized bacterial skin infection 2/2 nasal piercing is more likely for the following reason(s): suggested by HANDP Disposition The patient was discharged. CODING: [facility] 06-30-2025 Note HNO ID: [id number] Author: RAIZA BRASHER MD Service: ? Author Type: Physician Type: Progress Notes Filed: 07/04/2025 09:16 Note Text: BMI Obesity Medicine FollowUp Note June 30, 2025 Patient Summary: Leelee Zamora is 30 year old Female who presents for follow-up evaluation of her obesity and related complications to the [facility] [place]. Interval History: Leelee Zamroa is a 30-year-old female with prediabetes, iron deficiency, and a history of gestational diabetes, presenting for follow-up of weight management. She has been taking phentermine but reports that it has not suppressed her appetite, though it has provided a slight increase in energy. She previously used tirzepatide, which was effective for weight loss, but was discontinued due to loss of insurance coverage. She also previously took topiramate, which she stopped when she became . Leelee has made dietary changes, including cutting out most sugars (sodas and juices) and most complex carbohydrates (bread, pasta), while maintaining a higher protein intake. She continues to eat vegetables such as broccoli and green beans, and limits corn. She drinks mostly water and occasionally Propel for a sweet, zero-sugar beverage. She reports occasional snacking between meals. She exercises daily for at least 30 minutes before bed, using a stair stepper, weights, resistance bands, and a hoop for inner thigh exercises. She recently returned to work after maternity leave, working Thursday through Thursday from 3 PM to 10 PM. She is not . She reports that her diarrhea has resolved. Leelee has a history of blood clots and was evaluated by hematology last year, including genetic testing for a hypercoagulable disorder. She was told she has one genetic factor that may increase her risk for clots, but her hypercoagulable panel was normal. She underwent a on 03/23 and was anemic after delivery, but her iron levels were normal during . She is not currently taking iron supplements. Obesity Medications: Phentermine , 10/29/22, 255lbs - appetite reduction, taking 1/2 dose - decreased binge eating - overall she thinks it helps sometimes and it doesn't other time - no SE - restarted in 05/2025, no change in weight. No reported benefit. Diet: Improvements in diet, food choices. Current nutrition plan includes none Currently f/b None Exercise: Daily workouts at home after work. Barriers to regular exercise? None Work-related activity:Active. ?Sleep: Change in sleep No: Reports quality of sleep is good and sleeps approximately 6 to 9 hours a night ??Stress: none I have confirmed and edited as necessary, the PFSH and ROS obtained by others. Current Outpatient Medications Medication Sig Phentermine HCl 37.5 mg capsule Take 1 capsule by mouth daily before breakfast for 90 days. No current facility-administered medications for this visit. PAST MEDICAL HISTORY Diagnosis Date Acute deep vein thrombosis (DVT) of popliteal vein of right lower extremity (HCC) 02/2022 ADHD (attention deficit hyperactivity disorder) Allergic rhinitis, unspecified 12/16/2018 Bowel obstruction (HCC) 2022 Chlamydia Diabetes, gestational ([facility]) Encounter for insertion of Mirena IUD 12/24/2021 Ex-smoker 12/16/2018 Started at age 19 up to 1/2-1 PPD, quit 05/2018 SAMAN (generalized anxiety disorder) 12/16/2018 Seeing Klaus Gonzalez at the [facility]. History of chlamydia 16 YO History of gastroesophageal reflux (GERD) 12/16/2018 History of maternal fourth degree perineal laceration, currently (HCC) 08/18/2024 History of morbid obesity Infertility, female Menorrhagia 04/06/2020 had DX hysteroscopy and DANDC PCOS (polycystic ovarian syndrome) Psoriasis 12/16/2018 Vitamin D deficiency 12/16/2018 PAST SURGICAL HISTORY Procedure Laterality Date SECTION HX 03/23/2025 CYST EXCISION 2016 right leg DANDC, DIAG [...] HERNIA,REDUCIBLE incisional hernia and umbilical hernia repair Physical Exam: BP 123/74 (BP Site: Left Arm, BP Position: Sitting, BP Cuff Size: Extra Large Adult) Pulse 76 Ht 157.5 cm (5' 2) Wt 119.5 kg (263 lb 7.2 oz) LMP 06/27/2025 (Exact Date) BMI 48.19 kg/m? NAD Results: reviewed labs with the patient. Waist 37 (35.5') in Impression/Plan: Leelee Zamora is a 30 year old year old female with Class II obesity and the above obesity related complications. Initial loss 80lbs (30%BW) since 08/2022 with Mounj (more content not included)... [facility] 06-18-2025 Discharge summary [facility] 06-18-2025 Discharge summary Note Date/Time June 18, 2025 6:17pm [facility] Medical Records Department [address] [place] [address] Emergency Department Summary 06/18/25 MR#: [id number] Acct: [id number] Name: LEELEE ZAMORA Rep #:[id number] : 1995 30 From: Patricia Waite MD PCP: Dr. Alfredo Barroso MD Status :PRE ER Location: ED HPI History of Present Illness Chief Complaint: Laceration Narrative Narrative: Patient is a 30-year-old female presenting to the emergency department for a finger laceration. Patient has a past medical history as below. She reports that her last tetanus vaccine was in the past 5 years. Reports that she cut herleft distal index finger with a steak knife. Denies any other injuries. [facility] Medical History Hypotension Dizziness Vitamin D deficiency PCOS (polycystic ovarian syndrome) Obesity GERD (gastroesophageal reflux disease) Hx of deep venous thrombosis History of post traumatic stress disorder SBO (small bowel obstruction) Endometritis Chronic pain Post traumatic stress disorder (PTSD) ADHD (attention deficit hyperactivity disorder) Anxiety Home Medications ?Medication ?Instructions ?Recorded ?Last Taken ?Type phentermine 37.5 mg capsule 37.5 mg PO DAILY 06/18/25 Unknown History Allergy/AdvReac Type Severity Reaction Status Date / Time cat dander Allergy Hives Verified 06/18/25 17:34 house dust Allergy Hives Verified 06/18/25 17:34 peanut Allergy Swelling Verified 06/18/25 17:34 cranberry AdvReac Rash Verified 06/18/25 17:34 mold AdvReac Other Verified 06/18/25 17:34 morphine AdvReac Chest Verified 06/18/25 17:34 tightness Family History Aunt Cancer maternal aunt [...] type: does not use ROS ROS ED ROS Narrative See HPI EXAM Physical Exam Narrative Exam Narrative: Vital signs: Reviewed General: Alert and oriented x 3. No acute distress HEENT: Head is normocephalic and atraumatic, sinuses nontender, pupils equal round and reactive. Nares are patent. Oropharynx and throat exams normal. Neck: Supple without lymphadenopathy nontender Cardiovascular: Regular rate and rhythm, no murmurs. No rubs or gallops. Normal S1 and S2 Respiratory: Clear to auscultation bilaterally. No wheezes, rales, rhonchi Abdominal: Soft and nontender. Normal bowel sounds. No guarding or rebound. Nonsurgical abdomen Extremities: Left distal index finger with half cm superficial laceration. No active bleeding on exam. No FB on wound exploration. Radial pulses intact bilaterally. Sensation and motor intact in radial, median and ulnar distributions. No tenderness. No bruising. The rest of the physical exam is unremarkable Const Vital Signs: 06/18/25 17:34 Temperature 97.8 F Temperature Source Temporal Pulse Rate 91 Respiratory Rate 16 Blood Pressure 141/81 H Blood Pressure Mean 101 Pulse Ox 99 Oxygen Delivery Method Room Air MDM MDM MDM Narrative Medical decision making narrative: Patient is a 30-year-old female presenting to the emergency department for a left index finger laceration. Patient was seen and examined. Vitals are stable. Patient resting in bed comfortably in no acute distress. Tetanus vaccine is up to date. Wound copiously irrigated. No foreign body noted. Neurovascularly intact. The laceration is very superficial I do not think there is any indication for x-ray imaging of the finger. Wound repaired with dermabond. Wound will be dressed. Given wound care instructions. Patientdischarged from the Emergency Department. I do not feel that the patient's evaluation reveals any acute reason for admission at this time. I instructed them to either follow-up with their primary care physician or promptly return tothe Emergency Department for reevaluation should symptoms worsen or new symptomsdevelop. I explained what symptoms would indicate the need to return to the emergency department. Shared decision making was used. The patient voiced understanding of the treatment plan and is agreeable with it. Clinical impression: finger laceration History & Record Review Discussion w/independent historian: Patient Discharge Plan Triage Chief Complaint: Laceration ED Provider: Patricia Waite Dx/Rx/DC Orders Prescriptions: No Action phentermine 37.5 mg capsule 37.5 mg PO DAILY Primary Care Provider: Alfredo Barroso Referrals: Alfredo Barroso MD [Primary Care Provider] - Print Language: Italian What to do if you have Problems For any increased pain, shortness of breath, bleeding, nausea or vomiting, chestpain, or any unexpected problems, contact your Primary Care Provider. Call [facility] ([phone]) or report to the closest Emergency Room. Call 911 if necessary. 06/18/251816 <Electronically signed by Patricia Waite MD> Cosigner Signature (if applicable): CC: Dr. Alfredo Barroso MD ~ Signed [facility] Work Phone: 1(617) 555-898308-29-2025 NoteHNO ID: [id number] Author: MAURO LOVE PA Service: ? Author Type: Physician Mixed Crop Farmer Type: Progress Notes Filed: 06/09/2025 10:52 Note Text: URGENT CARE BEREA Ant Zamora is a 30 year old female. [...] or phone within 1-2 days. Recording using [employer] software for draft documentation of the visit was discussed with the patient/authorized food products sales representative; all questions welcomed and answered. Patient/authorized food products sales representative agreed to proceed History and Record Review External record(s) reviewed: prior outpatient record. Differential Diagnoses - Vaginitis is more likely for the following reason(s): suggested by HANDP - UTI is less likely for the following reason(s): HANDP not suggestive and laboratory studies not suggestive Disposition The patient was [facility]. [facility] History of Present illness Narrative* Mauro Love PA - 06/09/2025 10:52 AM EDT URGENT CARE VIRAL Ant Leelee Zamora is a 30 year old female. [...] or phone within 1-2 days. Recording using [employer] software for draft documentation of the visit was discussed with the patient/authorized food products sales representative; all questions welcomed and answered. Patient/authorized food products sales representative agreed to proceed History and Record Review External record(s) reviewed: prior outpatient record. Differential Diagnoses - Vaginitis is more likely for the following reason(s): suggested by H&P - UTI is less likely for the following reason(s): H&P not suggestive and laboratory studies notsuggestive Disposition The patient was discharged. Procedures documented in this encounterHocking [facility]08-19-2025 NoteHNO ID: [id number] Author: RAIZA BRASHER MD Service: ? Author Type: Physician Type: Progress Notes Filed: 06/30/2025 09:55 Note Text: BMI Obesity Medicine FollowUp Note May 30, 2025 Patient Summary: Leelee Zamora is 30 year old Female who presents for follow-up evaluation of her obesity and related complications to the [facility] [place]. Interval History: Leelee Zamora is a 30-year-old female presenting for evaluation of recent weight loss and diarrhea. Leelee reports a 20 lb weight loss over the past 3 months, with 10 lbs lost in the last week and a half, which she attributes to diarrhea. She describes the diarrhea as pure water with one bowel movement per day, beginning approximately 1.5 weeks ago. She has attempted dietary modifications, including increasing intake of bananas, bread, and protein, while avoiding greasy foods. She has also used Imodium, taking up to 6 doses in one day without relief. She denies any known cause for the diarrhea and is not currently . Leelee has a history of gestational diabetes and delivered her most recent child in March. She gained 80 lbs during , reaching a maximum weight of 280 lbs at delivery. Prior to , she was on phentermine, topiramate, and Trulicity, which helped her lose weight steadily, reducing her BMI to 30. She discontinued these medications in July upon discovering her . Her current diet includes three meals a day, primarily home-cooked, with a focus on low-calorie, low-sugar, and low-fat foods. She drinks water, diet soda, and zero-sugar Gatorade. She engages in physical activity, including using a stair stepper and a weighted hula hoop for 10 minutes each daily. She plans to resume walking with her children when the weather improves. Leelee is currently unemployed and caring for her two children. Her sleep is intermittent due to feeding her infant every 3 hours as per nutritional guidance. She denies stress from her current routine and is able to take naps during the day. Obesity Medications: Phentermine , 10/29/22, 255lbs - [...] plan includes none Currently f/b None Exercise: Several exercises with ; tries to workout at home. Barriers to regular exercise? None Work-related activity:Active. ?Sleep: Change in sleep No: Reports quality of sleep is good and sleeps approximately 6 to 9 hours a night ??Stress: none I have confirmed and edited as necessary, the PFSH and ROS obtained by others. No current outpatient medications on file. No current facility-administered medications for this visit. PAST MEDICAL HISTORY Diagnosis Date Acute deep vein thrombosis (DVT) of popliteal vein of right lower extremity ([facility]) 02/2022 ADHD (attention deficit hyperactivity disorder) Allergic rhinitis, unspecified 12/16/2018 Bowel obstruction ([facility]) 2022 Chlamydia Diabetes, gestational ([facility]) Encounter for insertion of Mirena IUD 12/24/2021 Ex-smoker 12/16/2018 Started at age 19 up to 1/2-1 PPD, quit 05/2018 SAMAN (generalized anxiety disorder) 12/16/2018 Seeing Klaus Gonzalez at the [facility]. History of chlamydia 16 YO History of gastroesophageal reflux (GERD) 12/16/2018 History of maternal fourth degree perineal laceration, currently ([facility]) 08/18/2024 History of morbid obesity Infertility, female [...] HERNIA,REDUCIBLE incisional hernia and umbilical hernia repair Physical Exam: BP 142/87 Pulse 81 Ht 157.5 cm (5' 2) Wt 118.2 kg (260 lb 9.3 oz) LMP 05/03/2025 (Exact Date) BMI 47.66 kg/m? NAD Results: reviewed labs with the patient. Waist 37 (35.5') in Impression/Plan: Leelee Zamora is a 30 year old year old female with Class II obesity and the above obesity related complications. Initial loss 80lbs (30%BW) since 08/2022 with Mounjaro ( supply/PA issues) and phentermine; Weight g (more content not included)...[facility] 05-10-2025 Instructions* Patient Instructions* Felicity Zuleta APRN.CNP - 05/10/2025 3:12 PM [...] care provider for follow-up. documented in this encounterHocking Valley [facility] Hospital07-30-2025 NoteHNO ID: [id number] Author: FELICITY ZULETA APRN.CNP Service: ? Author Type: Nurse Practitioner Type: Progress Notes Filed: 05/10/2025 15:13 Note Text: Telemedicine Visit - Distance Health Virtual Visit Note Patient seen on [employer] through Zoom Video Visit Location of [...] worsen or become more painful. Recording using [employer] software for draft documentation of the visit was discussed with the patient/authorized food products sales representative; all questions welcomed and answered. Patient/authorized food products sales representative agreed to proceed Disposition The patient was discharged. OTC Medications were advised: Ibuprofen PRN - All questions answered. Patient and/or caregiver verbalized understanding and comfortable with plan. I have communicated my name and active licensure. The patient's identity and physical location were verified at the time of this visit. Either the patient or their legal food products sales representative has been informed of the risks and benefits of -- and alternatives to -- treatment through a remote evaluation and consents to proceed with the evaluation remotely. Felicity Zuleta APRN.[facility] History of Present illness Narrative* Felicity Zuleta APRN.WALKING DRAGLINE OPERATOR - 05/10/2025 2:58 PM EDT Telemedicine Visit - Distance Health Virtual Visit Note Patient seen on [employer] [facility] Online through Zoom Video Visit Location of patient: [place] Person(s) present on virtual visit: Patient Subjective The patient is a 30-year-old female presenting for evaluation of a persistent bubble on the rightwrist with associated paresthesia and cold sensation. Right [...] 3 seconds, negative Phalen's test bilaterally. Patient pointsto a few inches surronding discoloration as area [...] worsen or become more painful. Recording using [employer] software for draft documentation of the visit was discussed with the patient/authorized food products sales representative; all questions welcomed and answered. Patient/authorized food products sales representative agreed to proceed Disposition The patient was discharged. OTC Medications were advised: Ibuprofen PRN - All questions answered. Patient and/or caregiver verbalized understanding and comfortable with plan. I have communicated my name and active licensure. The patient's identity and physical location wereverified at the time of this visit. Either the patient or their legal food products sales representative has been informed of the risks and benefits of -- and alternatives to -- treatment through a remote evaluation andconsents to proceed with the evaluation remotely. Felicity Zuleta APRN.YADI documented in this encounterHocking Valley [facility]07-29-2025 Telephone encounter Note * Telephone Encounter - Lenin Decker RN - 05/09/2025 10:01 AM EDT Mirena insertion order was filed under office visit encounter today. Linked to upcoming appt. Lenin Decker RN [facility]07-29-2025 Miscellaneous Notes* Telephone Encounter - eLnin Decker RN - 05/09/2025 10:01 AM EDT Mirena insertion order was filed under office visit encounter today. Linked to upcoming appt. Lenin Decker RN * Telephone Encounter - Lenin Decker RN - 05/08/2025 4:45 PM EDT See note below. Did you discuss this at her visit today? Order pending. Lenin Decker RN * Telephone Encounter - Terri Mcmillan - 05/08/2025 4:18 PM EDT Patient is requesting IUD. Please assist in advice thank you documented in this encounterHocking Valley Community Hospital07-28-2025 Telephone encounter Note * Telephone Encounter - Lenin Decker RN - 05/08/2025 4:45 PM EDT See note below. Did you discuss this at her visit today? Order pending. Lenin Decker RN [facility]07-28-2025 Telephone encounter Note* Telephone Encounter - Terri Mcmillan - 05/08/2025 4:18 PM EDT Patient is requesting IUD. Please assist in advice thank you [facility]07-28-2025 NoteHNO ID: [id number] Author: MARIETTA LUGO MD Service: ? Author [...] Menstrual pattern prior to : Regular periods [place] since delivery: Not resumed Depression: denies symptoms [...] of popliteal vein of right lower extremity ([facility]) 02/2022 ADHD (attention deficit hyperactivity disorder) Allergic rhinitis, unspecified 12/16/2018 Bowel obstruction ([facility]) 2022 Chlamydia Diabetes, gestational ([facility]) Encounter for insertion of Mirena IUD 12/24/2021 Ex-smoker 12/16/2018 Started at age 19 up to 1/2-1 PPD, quit 05/2018 SAMAN (generalized anxiety disorder) 12/16/2018 [facility]. History of chlamydia 16 YO History of gastroesophageal reflux (GERD) 12/16/2018 History of maternal fourth degree perineal laceration, currently ([facility]) 08/18/2024 History of morbid obesity Infertility, female Menorrhagia 04/06/2020 had DX hysteroscopy and DANDC PCOS (polycystic ovarian syndrome) Psoriasis 12/16/2018 Vitamin D deficiency 12/16/2018 PAST SURGICAL HISTORY Procedure Laterality Date SECTION HX 03/23/2025 CYST EXCISION 2016 right leg DANDC, DIAG [...] drainage PELVIC: deferred BIMANUAL: (more content not included)...[facility]07-28-2025 History of Present illness Narrative* Marietta Lugo MD - 05/08/2025 3:45 PM EDT VISIT Leelee Zamora is a 30 year old year old here for visit. Delivery Summary: Baby released from the hospital today - failure to thrive Doing ok with baby blues. Bottle feeding. ROS/ Recovery: Feeding: Bottle feeding problems: failure to thrive Menses since delivery: spotting Menstrual pattern prior to : Regular periods [place] since delivery: Not resumed Depression: denies symptoms [...] of popliteal vein of right lower extremity ([facility]) 02/2022 ADHD (attention deficit hyperactivity disorder) Allergic rhinitis, unspecified 12/16/2018 Bowel obstruction ([facility]) 2022 Chlamydia Diabetes, gestational ([facility]) Encounter for insertion of Mirena IUD 12/24/2021 Ex-smoker 12/16/2018 Started at age 19 up to 1/2-1 PPD, quit 05/2018 SAMAN (generalized anxiety disorder) 12/16/2018 [facility]. History of chlamydia 16 YO History of gastroesophageal reflux (GERD) 12/16/2018 History of maternal fourth degree perineal laceration, currently ([facility]) 08/18/2024 History of morbid obesity Infertility, female [...] IUD Marietta Lugo MD documented in this encounterHocking Valley Community Hospital06-25-2025 NoteHNO ID: [id number] Author: CHRISTOFER AYALA MD Service: ? Author [...] Menstrual pattern prior to : Regular periods [place] since delivery: Not resumed Depression: admits to [...] disorder) Allergic rhinitis, unspecified 12/16/2018 Bowel obstruction ([facility]) 2022 Chlamydia Diabetes, gestational ([facility]) Encounter for insertion of Mirena IUD 12/24/2021 [...] Alcohol/week: 1.0 standard dri (more content not included)...[facility]06-25-2025 History of Present illness Narrative* Christofer Ayala MD - 04/05/2025 7:48 AM EDT VISIT Patient Entered Questionnaires PHQ-2 Little interest or pleasure Not at all Down, depressed, hopeless More than half the days ASMAN 2 Nervous, anxious, on edge Nearly Everyday [...] Menstrual pattern prior to : Regular periods [place] since delivery: Not resumed Depression: admits to [...] disorder) Allergic rhinitis, unspecified 12/16/2018 Bowel obstruction ([facility]) 2022 Chlamydia Diabetes, gestational ([facility]) Encounter for insertion of Mirena IUD 12/24/2021 [...] discussed with the Patient or Patient's Authorized Director [employer]icon[employer]. As applicable, any other physician, advance practice provider, medical student, or other health professional student that will be observing or involved in the sensitive examination for educational or training purposes was discussed with the Patient or Authorized Director Semiconductor. The Patient or Authorized Director Semiconductor has agreed to proceed with the sensitive examination. (Sensitive examination includes inspection and/or palpation of the breasts, pelvis, prostate and anorectal regions). Wt 265 lb (120.2kg) LMP 06/20/2024 GENERAL: pleasant, female in no apparent distress ABDOMEN: soft, non-tender, and no masses. INCISION: No incisional redness, swelling, or drainage PELVIC: external genitalia normal, normal Bartholin's glands, urethra, Leach's glands, no vulvar lesions, no cervical lesions, good vaginal support, physiologic discharge present, normal appearing perineal body and perianal region BIMANUAL: uterus normal size, shape and consistency, no adnexal masses, non- tender, and unable to identify fistula and noting minimal perineal body ASSESSMENT AND PLAN: 29 year old status post CS with normal course. 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 Christofer Ayala MD documented in this encounterHocking Valley Community Hospital06-17-2025 NoteHNO ID: [id number] Author: TAHMINA DUMONT MD Service: ? Author Type: Physician Type: Progress Notes Filed: 03/28/2025 14:52 Note Text: EARLY VISIT Leelee Zamora is a 29 year old here for 1 week visit. Delivery Summary: Cristobal Dominguez [[id number]] Delivery Information: Delivery Date: 03/23/25 Delivery type: [...] in bassinet/crib in parent's room, feels rested [place] since delivery: Not resumed Emotional support: Yes [...] week visit and as needed Tahmina Dumont [facility]06-17-2025 History of Present illness Narrative* Tahmina Dumont MD - 03/28/2025 2:24 PM EDT EARLY VISIT Leelee Zamora is a 29 year old here for 1 week visit. Delivery Summary: Cristobal Dominguez [[id number]] Delivery Information: Delivery Date: 03/23/25 Delivery type: [...] in bassinet/crib in parent's room, feels rested [place] since delivery: Not resumed Emotional support: Yes [...] needed Tahmina Dumont MD documented in this encounterHocking Valley Community Hospital06-14-2025 NoteHNO ID: [id number] Author: FELICITY SHEPPARD CPhT Service: ? Author Type: Athletic Equipment Custodian Type: Plan of Care Filed: 03/27/2025 09:58 Note Text: PHARMACY BEDSIDE DELIVERY SERVICE Patient Name: Leelee Zamora The marked outpatient medications were Filled at: [facility] and delivered to the patient's bedside to [address] [place] [address]. Medication List START taking these medications acetaminophen [...] 3 days. CONTINUE taking these medications PNV 618-swmxx-bjkxc-3-fish oil 400-32.5 mcg-mg Chew You might also [...] injection pen Lancets Felicity Sheppard CPhT PAGER: [phone] March 27, 2025 9:58 [facility]06-13-2025 NoteHNO ID: [id number] Author: DAYANNA AL APRN.WALKING DRAGLINE OPERATOR Service: Obstetrics Author Type: Nurse Practitioner Type: [...] gestational diabetes mellitus (GDM) in third trimester ([facility]) Recent Labs 03/24/25 0908 03/24/25 0550 03/23/25 1022 PCGLUCOSE 77 102* 96 Plan for 24hrs accuchecks F/U 6-8wks PP ABLA (acute blood loss anemia) Stable QBL 819 ml Pre Op Hgb 11.6 Post Op Hgb 10.6 Continue PNV/iron Rectovaginal fistula History of reversal of ileostomy - Open ileostomy 2020 for bowel rest in the setting of above, reversed 6mo later (Dr. Velazquez @ [place]) S/P hernia repair - History of umbilical and RUQ (incisional in area of ileostomy) hernia requiring repair with mesh in 2021 Status post laparoscopic cholecystectomy - With significant lysis of adhesions in 2022 - One port site placed through mesh per op note Obesity complicating , second trimester ([facility]) - BMI 50 care following delivery ([facility]) Routine care. Routine postop care. Encourage patient [...] Zamora DATE: March 24, 2025 TIME: 11:05 [facility]06-13-2025 NoteHNO ID: [id number] Author: CRYSTAL CHAVARRIA LSW Service: Care Management Author Type: Parking Lot Manager Type: Care Mgt Initial Assessment Filed: 03/24/2025 10:57 Note Text: SOCIAL WORK INITIAL ASSESSMENT SERVICE DATE: 03/24/2025 SERVICE TIME: 10:47 AM : 1995 Delivery Mode: Weight: 7lb 5oz Gestational Age: 38w 5d Condenser Tube Tender: Nava Hdez MOTHER Name: Leelee Zamora Age: 29 Phone: [phone] Marital Status: Single MOTHER'S MEDICAL HISTORY Care: Yes Control Discussed: Encouraged patient to discuss with Provider. MENTAL HEALTH/SUBSTANCE ABUSE HISTORY None LIVING SITUATION Home: Lives with her children in apt Social Supports: Family Support Insurance/Community Resources Currently in Place: Medicaid Employment/School: Employed: taking approx 2 weeks off Consultant Internship Arrangements: No additional Consultant Internship needed PLAN/REFERRALS/INFORMATION PROVIDED: Social work intervention and [...] March 24, 2025 TIME: 10:47 AM PAGER/CONTACT #:[facility] [phone] NoteHNO ID: [id number] Author: REFUGIO ADAMS APRN.[facility] Service: Obstetrics Author Type: Nurse Practitioner Type: Progress Notes Filed: 03/24/2025 11:56 Note Text: Discussed patient at AM sign out with Dr. Fry. Patient to be on Lovenox 40mg BID while inpatient and 6 weeks . Refugio Adams APRN.[facility]06-12-2025 NoteHNO ID: [id number] Author: MICHELLE OWEN RN Service: Pain Management Author Type: Registered Nurse Type: Nursing Progress Note Filed: 03/23/2025 13:33 Note Text: BILATERAL TAP single shot nerve blocks with EXPAREL in OR setting. Dr. 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 Reason for block: [...] March 23, 2025 TIME: 1:21 PM CSN: [id number] NoteHNO ID: [id number] Author: CLAUDIO FLORIAN APRN.COUNTER SALES REPRESENTATIVE Service: Anesthesiology Author Type: Nurse Roller Turner Type: Anesthesia Procedure Notes Filed: 03/23/2025 12:37 Note Text: ANESTHESIOLOGY PROCEDURE NOTE Spinal Block General Information Procedure Start Time/Medication Administration: 03/23/2025 11:53 AM Procedure End time: 03/23/2025 11:53 AM Patient location during procedure: OR Timeout Performed Pre-procedure: timeout performed Reason for Block: primary surgical anesthetic Staffing COUNTER SALES REPRESENTATIVE: Claudio Florian APRN.COUNTER SALES REPRESENTATIVE Performed by: LAURA Preparation Sterility Preparation: hand hygiene performed prior [...] March 23, 2025 TIME: 12:35 PM CSN: [id number] Telephone encounter Note* Telephone Encounter - Jammie Funes APRN.CNP - 03/21/2025 3:52 PM EDT Orders filed. Jammie Funes APRN.CNP [facility]06-10-2025 Miscellaneous Notes* Telephone Encounter - Jammie Funes APRN.CNP - 03/21/2025 3:52 PM EDT Orders filed. Jammie Funes APRN.CNP * Telephone Encounter - Lenin Decker RN - 03/21/2025 3:35 PM EDT Received call from [facility]. Patient is scheduled for 03/23/25 and they are requesting CBC, Type and screen and syphilis to be ordered for her to have done prior to surgery date. Once orders are filed they will contact patient to have them done. Please file. Lenin Decker RN documented in this encounterHocking Valley Community Hospital06-10-2025 Telephone encounter Note * Telephone Encounter - Lenin Decker RN - 03/21/2025 3:35 PM EDT Received call from [facility]. Patient is scheduled for 03/23/25 and they are requesting CBC, Type and screen and syphilis to be ordered for her to have done prior to surgery date. Once orders are filed they will contact patient to have them done. Please file. Lenin Decker RN [facility]06-10-2025 NoteHNO ID: [id number] Author: TAHMINA DUMONT MD Service: ? Author [...] TOCO: None Interpretation: Reactive SIGNATURE: Tahmina Dumont [facility]06-10-2025 History of Present illness Narrative* Tahmina Dumont MD - 03/21/2025 1:10 PM EDT NST SUMMARY PROVIDER ASSESSMENT AND INTERPRETATION Leelee Zamora is a 29 year old female, , who is at 38w3d with an MJ of 04/01/2025, by Last Menstrual Period dating method. Indications for NST: Gestational Diabetes - Insulin Controlled Baseline: 150 Variability: Moderate Accelerations: Present 15 X 15 Decelerations: None Contractions: TOCO: None Interpretation: Reactive SIGNATURE: Tahmina Dumont MD documented in this encounterHocking Valley Community Hospital06-10-2025 Instructions* Patient Instructions* Michelle Mcgee MA - 03/21/2025 12:36 PM EDT SEQUENTIAL SCREENINGS The [facility] offers sequential screenings for women who [...] testing. It will require an appointment withour aerial survey technician. This is not an ultrasound performed [...] the above symptoms, contact our office at [phone] and ask to speak with anurse. After hours, you can call doctors registry at [phone] OR call [facility] at [phone] ask to have the doctor solutions sales consultant paged. If you consider this an emergency, dial 5 or go to your nearest emergency department. NEED HELP? Are you dealing with a violent or abusive relationship? Are you a victim of rape or sexual assult? Call [facility] ([place]) 24 hour Crisis Hotline: 840.353.5455 or 322-578-6776. MANUAL Your Guide to a Healthy manual is now on-line. Visit [email or web address] to download your free copy documented in this encounterHocking Valley Community Hospital06-03-2025 NoteHNO ID: [id number] Author: TAHMINA DUMONT MD Service: ? Author [...] TOCO: None Interpretation: Reactive SIGNATURE: Tahmina Dumont [facility]06-03-2025 History of Present illness Narrative* Tahmina Dumont MD - 03/14/2025 1:54 PM EDT NST SUMMARY PROVIDER ASSESSMENT AND INTERPRETATION Leelee Zamora is a 29 year old female, , who is at 37w3d with an MJ of 04/01/2025, by Last Menstrual Period dating method. Indications for NST: Gestational Diabetes - Insulin Controlled Baseline: 140 Variability: Moderate Accelerations: Present 15 X 15 Decelerations: None Contractions: TOCO: None Interpretation: Reactive SIGNATURE: Tahmina Dumont MD documented in this encounterHocking Valley Community Hospital06-03-2025 Progress note* Quick Notes - Tahmina Dumont MD - 03/14/2025 1:52 PM EDT KJ - S: Leelee denies LOF, contractions or vaginal bleeding. O: 37w3d, see flow sheet SENSITIVE EXAM: Sensitive exam not performed. A/P: Assessment & Plan 37 weeks gestation of (HCC) Orders: URINE OB DIP B/O Supervision of high risk in third trimester (HCC) Orders: URINE OB DIP B/O Insulin controlled [...] labor & FM precautions Tahmina Dumont MD [facility]06-03-2025 Miscellaneous Notes* Quick Notes - Tahmina Dumont MD - 03/14/2025 1:52 PM EDT KJ - S: Leelee denies LOF, contractions or vaginal bleeding. O: 37w3d, see flow sheet SENSITIVE EXAM: Sensitive exam not performed. A/P: Assessment & Plan 37 weeks gestation of ([facility]) Orders: URINE OB DIP B/O Supervision of high risk in third trimester ([facility]) Orders: URINE OB DIP B/O Insulin controlled gestational diabetes mellitus (GDM) in third trimester (HCC) She reports FBS in 80's and PPBS less than 138. She forgot her log today. Continue insulin. Orders: URINE OB DIP B/O Obesity affecting in second trimester, unspecified obesity type ([facility]) Orders: URINE OB DIP B/O MOD - schedule primary with . Reviewed labor & FM precautions Tahmina Dumont MD documented in this encounterHocking [facility]06-[facility] Instructions* Patient Instructions* Michelle Mcgee MA - 03/14/2025 1:50 PM EDT SEQUENTIAL SCREENINGS The [facility] offers sequential screenings for women who [...] testing. It will require an appointment withour aerial survey technician. This is not an ultrasound performed [...] the above symptoms, contact our office at [phone] and ask to speak with anurse. After hours, you can call doctors registry at [phone] OR call [facility] at [phone] ask to have the doctor solutions sales consultant paged. If you consider this an emergency, dial 6-0-3 or go to your nearest emergency department. NEED HELP? Are you dealing with a violent or abusive relationship? Are you a victim of rape or sexual assult? Call [facility] ([place]) 24 hour Crisis Hotline: 886.423.7745 or 812-789-2543. MANUAL Your Guide to a Healthy manual is now on-line. Visit [email or web address] to download your free copy documented in this encounterHocking [facility]05-[facility] Progress note* Quick Notes - Marietta Lugo MD - 03/07/2025 5:31 PM EDT S: Leelee Zamora is a 29 year old female who presents at 04/01/2025, by Last Menstrual Period for aroutine visit. Denies headache, visual changes, chest pain, shortness of breath, vaginal bleeding, leakage of fluid, or dysuria. Feeling well, no complaints. Good movement, No contractions O: See flow sheet Gen: No apparent distress Abd: Gravid, nontender SENSITIVE EXAMINATION CONSENT: The sensitive examination was discussed with the Patient or Patient's Authorized Director Semiconductor. Asapplicable, any other physician, advance practice provider, medical student, or other health professional student that will be observing or involved in the sensitive examination for educational or training purposes was discussed with the Patient or Authorized Director Semiconductor. The Patient or Authorized Director Semiconductor has agreed to proceed with the sensitive examination. C/s scheduled for 03/23 OMARI 15.3 BPP 8/8 EFW 63 % ASSESSMENT/PLAN: 1. Supervision of high risk in third trimester ([facility]) - ICD9: V23.9, ICD10: O09.93 (primary diagnosis) - URINE OB DIP B/O - ROUTINE, GROUP B STREPTOCOCCUS BY PCR 2. Insulin controlled gestational diabetes mellitus (GDM) in third trimester ([facility]) - ICD9: 648.83, ICD10: O24.414 BG good - URINE OB DIP B/O 3. History of maternal fourth degree perineal laceration, currently ([facility]) - ICD9: V23.49, ICD10: O09.299 PCS scheduled - URINE OB DIP B/O 4. Obesity affecting in second trimester, unspecified obesity type ([facility]) - ICD9: 649.13, ICD10: O99.212 BPP 05/19 - URINE OB DIP B/O 5. 36 weeks gestation of ([facility]) - ICD9: V22.2, ICD10: Z3A.36 GBS collected - URINE OB DIP B/O Marietta Lugo MD [facility]05-27-2025 Miscellaneous Notes* Quick Notes - Marietta Lugo MD - 03/07/2025 5:31 PM EDT S: Leelee Zamora is a 29 year old female who presents at 04/01/2025, by Last Menstrual Period for aroutine visit. Denies headache, visual changes, chest pain, shortness of breath, vaginal bleeding, leakage of fluid, or dysuria. Feeling well, no complaints. Good movement, No contractions O: See flow sheet Gen: No apparent distress Abd: Gravid, nontender SENSITIVE EXAMINATION CONSENT: The sensitive examination was discussed with the Patient or Patient's Authorized Director Semiconductor. Asapplicable, any other physician, advance practice provider, medical student, or other health professional student that will be observing or involved in the sensitive examination for educational or training purposes was discussed with the Patient or Authorized Director Semiconductor. The Patient or Authorized Director Semiconductor has agreed to proceed with the sensitive examination. C/s scheduled for 03/23 OMARI 15.3 BPP 8/8 EFW 63 % ASSESSMENT/PLAN: 1. Supervision of high risk in third trimester ([facility]) - ICD9: V23.9, ICD10: O09.93 (primary diagnosis) - URINE OB DIP B/O - ROUTINE, GROUP B STREPTOCOCCUS BY PCR 2. Insulin controlled gestational diabetes mellitus (GDM) in third trimester ([facility]) - ICD9: 648.83, ICD10: O24.414 BG good - URINE OB DIP B/O 3. History of maternal fourth degree perineal laceration, currently ([facility]) - ICD9: V23.49, ICD10: O09.299 PCS scheduled - URINE OB DIP B/O 4. Obesity affecting in second trimester, unspecified obesity type ([facility]) - ICD9: 649.13, ICD10: O99.212 BPP 05/19 - URINE OB DIP B/O 5. 36 weeks gestation of ([facility]) - ICD9: V22.2, ICD10: Z3A.36 GBS collected - URINE OB DIP B/O Marietta Lugo MD documented in this encounterHocking [facility]05-27[facility] Note Indication Evaluation of growth, Evaluation of [...] - The placenta is posterior. - BPP 8/8. - No malformations visualized on a limited [...] movements 2: tone 2: Amniotic fluid volume 8 Biophysical profile score Growth Overview Exam date [...] 11 oz EFW by: Hadlock (HC-AC-FL) Extended [employer] Dismantler 3.0 mm Extremities / Bony Struc FL [...] Fay Gould RDMS Read By: Winter Nation M.D.MATERNAL [id number] Instructions* Patient Instructions* Lilly Conklin MA - 03/07/2025 2:03 PM EDT SEQUENTIAL SCREENINGS The [facility] offers sequential screenings for women who [...] testing. It will require an appointment withour aerial survey technician. This is not an ultrasound performed [...] the above symptoms, contact our office at [phone] and ask to speak with anurse. After hours, you can call [facility] registry at [phone] OR call [facility] at [phone] ask to have the doctor solutions sales consultant paged. If you consider this an emergency, dial 4 or go to your nearest emergency department. NEED HELP? Are you dealing with a violent or abusive relationship? Are you a victim of rape or sexual assult? Call [facility] ([facility] 24 hour Crisis Hotline: 776.156.2931 or 258-641-6558. MANUAL Your Guide to a Healthy manual is now on-line. Visit [email or web address] to download your free copy documented in this encounterHocking Valley [facility]05-22-2025 Evaluation note* Diagnosis Onset Date Resolution Status Admit Date 35 weeks gestation of acut e March 02, 2025 2:10pm Abdominal pain affecting , antepartum acute March 02, 2025 2:10pm Decreased movement aff ecting management of mother, antepartum acute March 02, 2025 2:10pm Headache in , antepartum ac roxana March 02, 2025 2:10pm [facility] Work Phone: 1(264) 450-118305-20-2025 NoteHNO ID: [id number] Author: TOPHER MCCORD MD Service: ? Author [...] None Interpretation: Category I and Reactive SIGNATURE: AILYN [facility]05-14-[facility]25 Telephone encounter Note* Telephone Encounter - Delmar Sousa MA - 02/22/2025 1:16 PM EDT I saw on cover my meds that patients insulin was approved. I will notify patient. Delmar Sousa MA [facility]05-14-2025 Miscellaneous Notes* Telephone Encounter - Delmar Sousa MA - 02/22/2025 1:16 PM EDT I saw on cover my meds that patients insulin was approved. I will notify patient. Delmar Sousa MA documented in this encounterHocking Valley Community Hospital05-14-2025 Telephone encounter Note * Telephone Encounter - Topher Mccord MD - 02/22/2025 11:48 AM EDT ordered [facility]05-14-2025 Miscellaneous Notes* Telephone Encounter - Topher Mccord MD - 02/22/2025 11:48 AM EDT ordered * Telephone Encounter - Sophia Hamilton RN - 02/22/2025 11:25 AM EDT 34w4d Order pending. Please review and file if appropriate. Pt saw clinical systems educator 01/10/25. However, hasnot seen Endo nutrition. Sophia Hamilton RN * Telephone Encounter - Leelee Conroy - 02/22/2025 10:35 AM EDT Yesterday Judy Garcia asked me to schedule this pt for a consult w/ Dietary/ Nutrient. She had me schedule it from the Nutrient consult but I received a message back this morning that they do not see forthat due to complexity. Could you please place new order with Endo for this visit and I will schedule, thank you. documented in this encounterCleveland [id number] Telephone encounter Note * Telephone Encounter - Sophia Hamilton RN - 02/22/2025 11:25 AM EDT 34w4d Order pending. Please review and file if appropriate. Pt saw clinical systems educator 01/10/25. However, hasnot seen Endo nutrition. Sophia Hamilton, RN [facility]05-14-2025 Telephone encounter Note* Telephone Encounter - Leelee Conroy - 02/22/2025 10:35 AM EDT Yesterday Judy Garcia asked me to schedule this pt for a consult w/ Dietary/ Nutrient. She had me schedule it from the Nutrient consult but I received a message back this morning that they do not see forthat due to complexity. Could you please place new order with Endo for this visit and I will schedule, thank you. [facility]05-14-2025 Telephone encounter Note* Telephone Encounter - Hector Garcia RN - 02/22/2025 9:20 AM EDT Previous operative Records from [place] received and sent to be scanned into record. [facility]05-14-2025 Miscellaneous Notes* Telephone Encounter - Hector Garcia RN - 02/22/2025 9:20 AM EDT Previous operative Records from [place] received and sent to be scanned into record. documented in this encounterHocking Valley [facility] Hospital05-13-2025 Telephone encounter Note * Telephone Encounter - Hector Garcia RN - 02/21/2025 3:48 PM EDT Faxed request form sent to [facility] [phone] for records related to fistula surgery. Theyare to send 2 operative reports from 2020 and one from 2021 [facility]05-13-2025 Miscellaneous Notes* Telephone Encounter - Hector Garcia RN - 02/21/2025 3:48 PM EDT Faxed request form sent to [facility] [phone] for records related to fistula surgery. Theyare to send 2 operative reports from 2020 and one from 2021 documented in this encounterHocking Valley Community Hospital05-13-2025 NoteHNO ID: [id number] Author: WINTER NATION MD Service: ? Author [...] to request operative report records from [facility] which I have not been able to locate in Care Everywhere. Problem List Items Addressed This Visit Endocrinology Insulin controlled gestational diabetes mellitus (GDM) in third trimester ([facility]) Relevant Orders SURGICAL REQUEST - ELECTIVE (05/2020) POT ROOM TAPPER History of maternal fourth degree perineal laceration, currently ([facility]) Overview H/o fourth degree laceration after forcep assisted delivery with rectovaginal fistula formation. Primary delivery recommended Other Obesity complicating , second trimester ([facility]) Overview - Pre BMI 37 - Plan for growth q 4 weeks at 28 weeks - Weekly NSTs at 36 weeks. Other Visit Diagnoses Gestational diabetes mellitus (GDM) requiring insulin ([facility]) - Primary Relevant Orders DELIVERY+ CARE Diet controlled gestational diabetes mellitus (GDM) in third trimester ([facility]) Supervision of high risk in third trimester ([facility]) Medical Decision Making: Problems: Moderate: 2+ stable chronic illnesses and New problem with uncertain prognosis Risk: Moderate: Moderate risk from testing/treatment Medical Decision Making Level: 4 - Moderate Winter Nation [facility]05-13-2025 History of Present illness Narrative* Winter Nation MD - 02/21/2025 3:03 PM EDT MFM Consult Follow Up 29yo @ 34w3d [...] to request operative report records from [facility] which I have not been able to locate in Care Everywhere. Problem List Items Addressed This Visit Endocrinology Insulin controlled gestational diabetes mellitus (GDM) in third trimester ([facility]) Relevant Orders SURGICAL REQUEST - ELECTIVE (05/2020) POT ROOM TAPPER History of maternal fourth degree perineal laceration, currently ([facility]) Overview H/o fourth degree laceration after forcep assisted delivery with rectovaginal fistula formation. Primary delivery recommended Other Obesity complicating , second trimester ([facility]) Overview - Pre BMI 37 - Plan for growth q 4 weeks at 28 weeks - Weekly NSTs at 36 weeks. Other Visit Diagnoses Gestational diabetes mellitus (GDM) requiring insulin ([facility]) - Primary Relevant Orders DELIVERY+ CARE Diet controlled gestational diabetes mellitus (GDM) in third trimester ([facility]) Supervision of high risk in third trimester ([facility]) Medical Decision Making: Problems: Moderate: 2+ stable chronic illnesses and New problem with uncertain prognosis Risk: Moderate: Moderate risk from testing/treatment Medical Decision Making Level: 4 - Moderate Winter Nation MD documented in this encounterHocking Valley [facility]05-13-2025 Note Indication Evaluation of well-being Maternal obesity, [...] Chisholm RDMS, RVT Read By: Winter Nation M.D.MATERNAL [id number] NoteHNO ID: [id number] Author: TOPHER MCCORD MD Service: ? Author [...] Category I and Reactive SIGNATURE: Topher Causey [facility]05-08-2025 History of Present illness Narrative* Topher Mccord MD - 02/16/2025 12:29 PM EDT NST SUMMARY PROVIDER ASSESSMENT AND INTERPRETATION Leelee [...] SIGNATURE: Topher Causey MD documented in this encounterHocking Valley [facility]05-08-2025 Progress note* Quick Notes - Topher Mccord MD - 02/16/2025 11:38 AM EDT DM-Pt doing well. Denies vaginal Bleeding, Leaking fluid, or regular Contractions. Pt reports good movement Brought BS log with her. Physical Exam: Gen: female in no apparent distress Abd: soft, Gravid. Non tender to palpation. See flow sheet Fastings: 73-109- (50% are elevated) 1hr PP- 92-186 (>50% elevated) @ 33.5 weeks Assessment & Plan Supervision of high risk in third trimester ([facility]) Insulin controlled gestational diabetes mellitus (GDM) in third trimester ([facility]) Decision to start Insulin based on BS log today- will start 12 units NPH at night and morning - pt counseled on proper administration. - pt to follow up with [facility] Thursday Orders: insulin NPH subcutaneous pen; Inject 12 Units subcutaneously two times a day at 6 am and 9 pm. History of maternal fourth degree perineal laceration, currently ([facility]) Primary cs scheduled at [facility] for h/o ileostomy with previous 4th degree Obesity affecting in second trimester, unspecified obesity type ([facility]) Topher Causey MD [facility]05-08-2025 Miscellaneous Notes* Quick Notes - Topher Mccord MD - 02/16/2025 11:38 AM EDT DM-Pt doing well. Denies vaginal Bleeding, Leaking fluid, or regular Contractions. Pt reports good movement Brought BS log with her. Physical Exam: Gen: female in no apparent distress Abd: soft, Gravid. Non tender to palpation. See flow sheet Fastings: 73-109- (50% are elevated) 1hr PP- 92-186 (>50% elevated) @ 33.5 weeks Assessment & Plan Supervision of high risk in third trimester ([facility]) Insulin controlled gestational diabetes mellitus (GDM) in third trimester ([facility]) Decision to start Insulin based on BS log today- will start 12 units NPH at night and morning - pt counseled on proper administration. - pt to follow up with [facility] Thursday Orders: insulin NPH subcutaneous pen; Inject 12 Units subcutaneously two times a day at 6 am and 9 pm. History of maternal fourth degree perineal laceration, currently ([facility]) Primary cs scheduled at [facility] for h/o ileostomy with previous 4th degree Obesity affecting in second trimester, unspecified obesity type ([facility]) Topher Causey MD documented in this encounterHocking Valley [facility]05-08-2025 Instructions* Patient Instructions* Lilly Conklin MA - 02/16/2025 11:07 AM EDT SEQUENTIAL SCREENINGS The [facility] offers sequential screenings for women who [...] testing. It will require an appointment withour aerial survey technician. This is not an ultrasound performed [...] the above symptoms, contact our office at [phone] and ask to speak with anurse. After hours, you can call doctors registry at [phone] OR call [facility] at [phone] ask to have the doctor solutions sales consultant paged. If you consider this an emergency, dial 8-1-4 or go to your nearest emergency department. NEED HELP? Are you dealing with a violent or abusive relationship? Are you a victim of rape or sexual assult? Call [facility] ([place]) 24 hour Crisis Hotline: 788.682.8967 or 790-741-8931. MANUAL Your Guide to a Healthy manual is now on-line. Visit [email or web address] to download your free copy documented in this encounterHocking Valley [facility]05-07-2025 Progress note* Quick Notes - Topher Mccord MD - 02/15/2025 10:02 AM EDT DM-Pt doing well. Denies vaginal Bleeding, Leaking [...] gestational diabetes mellitus (GDM) in third trimester ([facility]) - importance of having BS log to review d/w patient- advised needs to bring to next appt. Orders: URINE OB DIP B/O History of maternal fourth degree perineal laceration, currently ([facility]) - primary cs planned Orders: URINE OB DIP B/O Obesity affecting in second trimester, unspecified obesity type ([facility]) - NSTs weekly Orders: URINE OB DIP B/O Topher Causey MD [facility]05-07-2025 Miscellaneous Notes* Quick Notes - Topher Mccord MD - 02/15/2025 10:02 AM EDT DM-Pt doing well. Denies vaginal Bleeding, Leaking [...] Supervision of high risk in third trimester ([facility]) Orders: URINE OB DIP B/O Diet controlled gestational diabetes mellitus (GDM) in third trimester ([facility]) - importance of having BS log to review d/w patient- advised needs to bring to next appt. Orders: URINE OB DIP B/O History of maternal fourth degree perineal laceration, currently ([facility]) - primary cs planned Orders: URINE OB DIP B/O Obesity affecting in second trimester, unspecified obesity type ([facility]) - NSTs weekly Orders: URINE OB DIP B/O Topher Causey MD documented in this encounterHocking Valley [facility]05-07-2025 Instructions* Patient Instructions* Lilly Conklin MA - 02/15/2025 10:00 AM EDT SEQUENTIAL SCREENINGS The [facility] offers sequential screenings for women who [...] testing. It will require an appointment withour aerial survey technician. This is not an ultrasound performed [...] the above symptoms, contact our office at [phone] and ask to speak with anurse. After hours, you can call doctors registry at [phone] OR call [facility] at [phone] ask to have the doctor solutions sales consultant paged. If you consider this an emergency, dial 9-1-7 or go to your nearest emergency department. NEED HELP? Are you dealing with a violent or abusive relationship? Are you a victim of rape or sexual assult? Call [facility] ([place]) 24 hour Crisis Hotline: 506.959.9849 or 174-400-5351. MANUAL Your Guide to a Healthy manual is now on-line. Visit [email or web address] to download your free copy documented in this encounterHocking [facility]05-02-2025 NoteHNO ID: [id number] Author: TAHMINA DUMONT MD Service: ? Author [...] LANDD for additional monitoring. SIGNATURE: Tahmina Dumont [facility]05-02-2025 History of Present illness Narrative* Tahmina Dumont MD - 02/10/2025 12:20 PM EDT NST SUMMARY PROVIDER ASSESSMENT AND INTERPRETATION Leelee Zamora is a 29 year old female, , who is at 32w6d with an MJ of 04/01/2025, by Last Menstrual Period dating method. Indications for NST: Decreased Movement Baseline: 145 Variability: Moderate Accelerations: Absent Decelerations: None Contractions: TOCO: None Interpretation: Non-Reactive Patient to L&D for additional monitoring. SIGNATURE: Tahmina Dumont MD documented in this encounterHocking Valley [facility] Hospital05-01-2025 Telephone encounter Note * Telephone Encounter - Sophia Hamilton RN - 02/09/2025 3:15 PM EDT 32w5d Pt calls stating she has drank 180oz (3 big cups that are 64 ounces) & has Peed once/ has no urge to pee-Pt worried about her kidneys as urine was dark. GDM w/BGT 91, after lunch 165, has not checked after snack. Has been busy today and running errands/states extremely hot.Advised Pt to continue drinking plenty of fluids, [...] hour period. Reviewed kick counts with Pt. [employer] message sent with instructions for future reference. Discussed Decreased FM with RR and Pt scheduled to come to office for NST. Pt's next NST in office 02/15/25 with OB appt following. Sophia Hamilton RN [facility]05-01-2025 Miscellaneous Notes* Telephone Encounter - Sophia Hamilton RN - 02/09/2025 3:15 PM EDT 32w5d Pt calls stating she has drank 180oz (3 big cups that are 64 ounces) & has Peed once/ has no urge to pee-Pt worried about her kidneys as urine was dark. GDM w/BGT 91, after lunch 165, has not checked after snack. Has been busy today and running errands/states extremely hot.Advised Pt to continue drinking plenty of fluids, [...] hour period. Reviewed kick counts with Pt. [employer] message sent with instructions for future reference. Discussed Decreased FM with RR and Pt scheduled to come to office for NST. Pt's next NST in office 02/15/25 with OB appt following. Sophia Hamilton RN documented in this encounterHocking Valley [facility] Hospital04-29-2025 Telephone encounter Note * Telephone Encounter - Marietta Cobb RN - 02/07/2025 8:13 AM EDT 3rd risk assessment form submitted 02/07/2025. Marietta Cobb RN [facility]04-29-2025 Miscellaneous Notes* Telephone Encounter - Marietta Cobb RN - 02/07/2025 8:13 AM EDT 3rd risk assessment form submitted 02/07/2025. Marietta Cobb RN documented in this encounterH[facility]04-28-[facility] Note Indication Evaluation of growth, Evaluation of [...] The placenta is posterior, fundal. - BPP 05/19. - No malformations visualized [...] 7 oz EFW by: Hadlock (HC-AC-FL) Extended [employer] Dismantler 5.0 mm Extremities / Bony Struc FL [...] to know sex: yes Performed By: Tatyana Chisholm RDMS, RVT Read By: Winter Nation M.D.MATERNAL [id number] Progress note* Quick Notes - Britney Griffin MD - 02/06/2025 1:56 PM EDT RR- VB No. LOF No. CTXS No. [...] diabetes mellitus (GDM) in third trimester (HCC) hasn't been checking BS regularly, no log [...] of maternal fourth degree perineal laceration, currently ([facility]) Had extensive repair after last delivery, very [...] Supervision of high risk in third trimester ([facility]) Orders: URINE OB DIP B/O CONSULT TO MATERNAL MEDI; Future NON-STRESS TEST; Standing Obesity affecting in second trimester, unspecified obesity type ([facility]) Orders: URINE OB DIP B/O CONSULT TO MATERNAL MEDI; Future NON-STRESS TEST; Standing 32 weeks gestation of ([facility]) Orders: URINE OB DIP B/O BPP 05/19 today. Britney Griffin M.D. [facility]04-28-2025 Miscellaneous Notes* Quick Notes - Britney Griffin MD - 02/06/2025 1:56 PM EDT RR- VB No. LOF No. CTXS No. [...] gestational diabetes mellitus (GDM) in third trimester ([facility]) hasn't been checking BS regularly, no log [...] of maternal fourth degree perineal laceration, currently ([facility]) Had extensive repair after last delivery, very [...] Supervision of high risk in third trimester ([facility]) Orders: URINE OB DIP B/O CONSULT TO MATERNAL MEDI; Future NON-STRESS TEST; Standing Obesity affecting in second trimester, unspecified obesity type ([facility]) Orders: URINE OB DIP B/O CONSULT TO MATERNAL MEDI; Future NON-STRESS TEST; Standing 32 weeks gestation of ([facility]) Orders: URINE OB DIP B/O BPP 05/19 today. Britney Griffin M.D. documented in this encounterHocking Valley [facility] Hospital04-28-2025 Instructions* Patient Instructions* Michelle Trent MA - 02/06/2025 1:35 PM EDT SEQUENTIAL SCREENINGS [facility] offers sequential screenings for women who [...] testing. It will require an appointment withour aerial survey technician. This is not an ultrasound performed [...] the above symptoms, contact our office at [phone] and ask to speak with anurse. After hours, you can call doctors registry at [phone] OR call [facility] at [phone] ask to have the doctor solutions sales consultant paged. If you consider this an emergency, dial 06-12- or go to your nearest emergency department. NEED HELP? Are you dealing with a violent or abusive relationship? Are you a victim of rape or sexual assult? Call [facility] ([place]) 24 hour Crisis Hotline: 412.718.2788 or 384-677-6335. MANUAL Your Guide to a Healthy manual is now on-line. Visit [email or web address] to download your free copy documented in this encounterHocking Valley Community Hospital04-22-2025 Telephone encounter Note * Telephone Encounter - Tahmina Dumont MD - 01/31/2025 1:36 PM EDT Most fasting and 1 hour PP BS are normal. Please encourage diet compliance and walking after meals. Tahmina Dumont MD [facility]04-22-2025 Miscellaneous Notes* Telephone Encounter - Tahmina Dumont MD - 01/31/2025 1:36 PM EDT Most fasting and 1 hour PP BS are normal. Please encourage diet compliance and walking after meals. Tahmina Dumont MD * Telephone Encounter - Marietta Werner RN - 01/31/2025 12:44 PM EDT 31w3d Patient has her next OB visit on Thursday, but concerned about her blood sugars. Would like someone to review today. Can you please review. Thank you. Marietta Werner RN documented in this encounterHocking Valley [facility] Hospital04-22-2025 Telephone encounter Note * Telephone Encounter - Marietta Werner RN - 01/31/2025 12:44 PM EDT 31w3d Patient has her next OB visit on Thursday, but concerned about her blood sugars. Would like someone to review today. Can you please review. Thank you. Marietta Werner RN [facility]04-14-2025 Telephone encounter Note* Telephone Encounter - Tatyana Aponte RN - 01/23/2025 12:46 PM EDT [employer] message sent to patient per request. Tatyana Aponte RN [facility]04-14-2025 Miscellaneous Notes* Telephone Encounter - Tatyana Aponte RN - 01/23/2025 12:46 PM EDT MyChart message sent to patient per request. Tatyana Aponte RN * Telephone Encounter - Sandhya Reno APRN.CNM - 01/23/2025 12:39 PM EDT We do not recommend diflucan during . But if this is all she can take then I can send it in. If she does not have a true allergy, she can attempt Monistat 7. It does cause discomfort as the medication is treating. She can read the fact sheet as well for diflucan. Fluconazole (Diflucan ) - MotherToBaby Sandhya Reno APRN.CNM * Telephone Encounter - Tatyana Aponte RN - 01/23/2025 10:40 AM EDT Patient 30w2d calling with complaints of yeast [...] Diflucan. Tatyana Aponte RN documented in this encounterHocking Valley Community Hospital04-14-2025 Telephone encounter Note * Telephone Encounter - Sandhya Reno APRN.CNM - 01/23/2025 12:39 PM EDT We do not recommend diflucan during . But if this is all she can take then I can send it in. If she does not have a true allergy, she can attempt Monistat 7. It does cause discomfort as the medication is treating. She can read the fact sheet as well for diflucan. Fluconazole (Diflucan ) - MotherToBaby Sandhya Reno APRN.CNM [facility]04-14-2025 Note* Addendum Note - Sophia Hamilton RN - 01/23/2025 12:35 PM EDTAddended by: SOPHIA HAMILTON on: 01/23/2025 12:35 PM Modules accepted: Orders [facility]04-14-2025 Miscellaneous Notes* Addendum Note - Sophia Hamilton RN - 01/23/2025 12:35 PM EDTAddended by: SOPHIA HAMILTON on: 01/23/2025 12:35 PM Modules accepted: Orders * Telephone Encounter - Sophia Hamilton RN - 01/23/2025 12:34 PM EDT Surgery request pending. Please complete and will contact [facility] to get c- section tentatively scheduled. Sophia Hamilton RN * Telephone Encounter - Tatyana Aponte RN - 01/23/2025 10:51 AM EDT Patient 30w2d, has upcoming appointment on 02/06 with you. FYI. Tatyana Aponte RN documented in this encounterHocking Valley Community Hospital04-14-2025 Telephone encounter Note * Telephone Encounter - Sophia Hamilton RN - 01/23/2025 12:34 PM EDT Surgery request pending. Please complete and will contact [facility] to get c- section tentatively scheduled. Sophia Hamilton RN [facility]04-14-2025 Telephone encounter Note* Telephone Encounter - Tatyana Aponte RN - 01/23/2025 10:51 AM EDT Patient 30w2d, has upcoming appointment on 02/06 with you. REID. Tatyana Aponte RN [facility]04-14-2025 Telephone encounter Note* Telephone Encounter - Tatyana Aponte RN - 01/23/2025 10:40 AM EDT Patient 30w2d calling with complaints of yeast [...] is asking for Diflucan. Tatyana Aponte RN [facility]04-12-2025 NoteHNO ID: [id number] Author: MARIETTA LUGO MD Service: ? Author Type: Physician Type: Progress Notes Filed: 01/21/2025 11:45 Note Text: NST SUMMARY PROVIDER ASSESSMENT AND INTERPRETATION Indications for NST: Decreased Movement Baseline: 140 Variability: Moderate Accelerations: Present 10 X 10 Decelerations: None Interpretation: Reactive SIGNATURE: Marietta Lugo [facility]04-12-2025 History of Present illness Narrative* Marietta Lugo MD - 01/21/2025 11:45 AM EDT NST SUMMARY PROVIDER ASSESSMENT AND INTERPRETATION Indications for NST: Decreased Movement Baseline: 140 Variability: Moderate Accelerations: Present 10 X 10 Decelerations: None Interpretation: Reactive SIGNATURE: Marietta Lugo MD documented in this encounterHocking Valley Community Hospital04-12-2025 Progress note* Quick Notes - Marietta Lugo MD - 01/21/2025 11:39 AM EDT S: Leelee Zamora is a 29 year old female who presents at 04/01/2025, by Last Menstrual Period for aroutine visit. Denies headache, visual changes, chest pain, shortness of breath, vaginal bleeding, leakage of fluid, or dysuria. Feeling well, no complaints. O: See flow sheet Gen: No apparent distress Abd: Gravid, nontender Complains of decreased movement for the last 2 days. No contractions. Declines LARC ASSESSMENT/PLAN: 1. 29 weeks gestation of ([facility]) - ICD9: V22.2, ICD10: Z3A.29 (primary diagnosis) - NON-STRESS TEST 2. Diet controlled gestational diabetes mellitus (GDM) in third trimester ([facility]) - ICD9: 648.83, ICD10: O24.410 Controlled - few elevated values 3. History of maternal fourth degree perineal laceration, currently ([facility]) - ICD9: V23.49, ICD10: O09.299 Primary 4. Supervision of high risk in third trimester ([facility]) - ICD9: V23.9, ICD10: O09.93 5. Obesity affecting in second trimester, unspecified obesity type ([facility]) - ICD9: 649.13, ICD10: O99.212 Growth q 4 NSTs at 32 weeks 6. Decreased movements in second trimester, single or unspecified fetus ([facility]) - ICD9: 655.73,ICD10: O36.8120 - NON-STRESS TEST Marietta Lugo MD [facility]04-12-2025 Miscellaneous Notes* Quick Notes - Marietta Lugo MD - 01/21/2025 11:39 AM EDT S: Leelee Zamora is a 29 year old female who presents at 04/01/2025, by Last Menstrual Period for aroutine visit. Denies headache, visual changes, chest pain, shortness of breath, vaginal bleeding, leakage of fluid, or dysuria. Feeling well, no complaints. O: See flow sheet Gen: No apparent distress Abd: Gravid, nontender Complains of decreased movement for the last 2 days. No contractions. Declines LARC ASSESSMENT/PLAN: 1. 29 weeks gestation of ([facility]) - ICD9: V22.2, ICD10: Z3A.29 (primary diagnosis) - NON-STRESS TEST 2. Diet controlled gestational diabetes mellitus (GDM) in third trimester ([facility]) - ICD9: 648.83, ICD10: O24.410 Controlled - few elevated values 3. History of maternal fourth degree perineal laceration, currently ([facility]) - ICD9: V23.49, ICD10: O09.299 Primary 4. Supervision of high risk in third trimester ([facility]) - ICD9: V23.9, ICD10: O09.93 5. Obesity affecting in second trimester, unspecified obesity type ([facility]) - ICD9: 649.13, ICD10: O99.212 Growth q 4 NSTs at 32 weeks 6. Decreased movements in second trimester, single or unspecified fetus (HCC) - ICD9: 655.73,ICD10: O36.8120 - NON-STRESS TEST Marietta Lugo MD documented in this encounterHocking Valley [facility] Hospital04-11-2025 Instructions* Patient Instructions* Madelin Swanson MA - 01/20/2025 11:37 AM EDT SEQUENTIAL SCREENINGS [facility] offers sequential screenings for women who [...] testing. It will require an appointment withour aerial survey technician. This is not an ultrasound performed [...] the above symptoms, contact our office at [phone] and ask to speak with anurse. After hours, you can call doctors registry at [phone] OR call [facility] at [phone] ask to have the doctor solutions sales consultant paged. If you consider this an emergency, dial 9-1-6 or go to your nearest emergency department. NEED HELP? Are you dealing with a violent or abusive relationship? Are you a victim of rape or sexual assult? Call [facility] ([facility] 24 hour Crisis Hotline: 913.821.7532 or 718-636-3496. MANUAL Your Guide to a Healthy manual is now on-line. Visit [email or web address] to download your free copy documented in this encounterHocking Valley [facility]04-01-2025 Telephone encounter Note * Telephone Encounter - Tatyana Aponte RN - 01/10/2025 2:56 PM EDT Patient notified and voiced understanding. Appointment given for next week in office to review BS log. Tatyana Aponte RN [facility]04-01-2025 Miscellaneous Notes* Telephone Encounter - Tatyana Aponte RN - 01/10/2025 2:56 PM EDT Patient notified and voiced understanding. Appointment given for next week in office to review BS log. Tatyana Aponte RN * Telephone Encounter - Tahmina Dumont MD - 01/10/2025 2:36 PM EDT BS log reviewed and majority of BS are normal. Patient just had diabetic education today. Please encourage her to follow the dietary recommendations. It seems that some of her PP breakfast levels areelevated so with some dietary adjustments those could be corrected. Please have her follow up with a BS log in I week to review. Tahmina Dumont MD * Telephone Encounter - Sophia Hamilton RN - 01/10/2025 1:29 PM EDT Pt in office and notified of need to get appointments scheduled. Pt saw AT today. Pt was at supervisor front asking to speak to the nurse stating she was under the impression she was needing prescription medication for the GDM, but this was not discussed. Leelee had appt with clinical systems educator today; However, when this RN asked if she was willing to seeNutritionist, Pt states she has the information, but is not interested at this time. Advised Pt to eat high protein meals and avoid high sugary foods. Pt states she has the GDM information re: targetranges and this RN advised her to send her blood sugars weekly to provider via [employer] and if any questions/concerns to call office. Pt handed this RN blood glucose readings from 12/31/24-01/10/25 and copy placed on KJ desk for review. Please advise. * Telephone Encounter - Sophia Hamilton RN - 01/10/2025 1:06 PM EDT Left message for patient to call office. Sophia Hamilton RN * Telephone Encounter - Sophia Hamilton RN - 01/10/2025 1:06 PM EDT Tahmina Dumont MD to [facility] Ob-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 Operator Pool 01/10/25 12:53 PM Result Note Growth in four weeks Tahmina Dumont MD OBSTETRIC ULTRASOUND [facility] documented in this encounterHocking Valley [facility]04-01-2025 Telephone encounter Note * Telephone Encounter - Tahmina Dumont MD - 01/10/2025 2:36 PM EDT BS log reviewed and majority of BS are normal. Patient just had diabetic education today. Please encourage her to follow the dietary recommendations. It seems that some of her PP breakfast levels areelevated so with some dietary adjustments those could be corrected. Please have her follow up with a BS log in I week to review. Tahmina Dumont MD [facility]04-01-2025 Telephone encounter Note* Telephone Encounter - Sophia Hamilton RN - 01/10/2025 1:29 PM EDT Pt in office and notified of need to get appointments scheduled. Pt saw AT today. Pt was at supervisor front asking to speak to the nurse stating she was under the impression she was needing prescription medication for the GDM, but this was not discussed. Leelee had appt with clinical systems educator today; However, when this RN asked if she was willing to seeNutritionist, Pt states she has the information, but is not interested at this time. Advised Pt to eat high protein meals and avoid high sugary foods. Pt states she has the GDM information re: targetranges and this RN advised her to send her blood sugars weekly to provider via [employer] and if any questions/concerns to call office. Pt handed this RN blood glucose readings from 12/31/24-01/10/25 and copy placed on KJ desk for review. Please advise. [facility]04-01-2025 Telephone encounter Note* Telephone Encounter - Sophia Hamilton RN - 01/10/2025 1:06 PM EDT Left message for patient to call office. Sophia Hamilton RN [facility]04-01-2025 Telephone encounter Note* Telephone Encounter - Sophia Hamilton RN - 01/10/2025 1:06 PM EDT Tahmina Dumont MD to [facility] Ob-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 Operator Pool 01/10/25 12:53 PM Result Note Growth in four weeks Tahmina Dumont MD OBSTETRIC ULTRASOUND WHI [facility]04-01-2025 NoteHNO ID: [id number] Author: MIRTA SANTOS RN Service: ? Author Type: Registered Nurse Type: Progress Notes Filed: 01/10/2025 13:12 Note Text: DIABETES CARE AND EDUCATION VISIT Location: [place] Type of visit: In person individual PATIENT'S [...] Zamora DATE: January 10, 2025 TIME: 11:56 [facility]04-01-2025 History of Present illness Narrative* Mirta Santos RN - 01/10/2025 11:56 AM EDT DIABETES CARE AND EDUCATION VISIT Location: [place] Type of visit: In person individual PATIENT'S [...] 2025 TIME: 11:56 AM documented in this encounterHocking Valley Community Hospital04-01-2025 Note Indication Evaluation of growth. Gestational diabetes [...] 15 oz EFW by: Hadlock (HC-AC-FL) Extended [employer] Dismantler 4.7 mm Extremities / Bony Struc FL [...] Fay Gould RDMS Read By: Winter Nation M.D.MATERNAL [id number] Progress note* Quick Notes - Christofer Ayala MD - 01/10/2025 11:44 AM EDT Patient presents at 29 w 1 day [...] unspecified obesity type - ICD9: 649.13, ICD10:O99.212 Growth q 4 weeks NSTs at 36 weeks - GESTATIONAL GLUCOSE SCREEN, 1-HOUR, 50 GRAM, NON-FASTING - SYPHILIS TREPONEMAL W/REFLEX - ANEMIA REFLEX PANEL 3. History of maternal fourth degree perineal laceration, currently - ICD9: V23.49, ICD10:O09.299 Planned primary c/s at [facility] - GESTATIONAL GLUCOSE SCREEN, 1-HOUR, 50 GRAM, [...] PANEL 8. Endocrinology today Christofer Ayala MD [facility] Work Phone: 1(233) 379-893504-01-2025 Miscellaneous Notes* Quick Notes - Christofer Ayala MD - 01/10/2025 11:44 AM EDT Patient presents at 29 w 1 day [...] unspecified obesity type - ICD9: 649.13, ICD10:O99.212 Growth q 4 weeks NSTs at 36 weeks - GESTATIONAL GLUCOSE SCREEN, 1-HOUR, 50 GRAM, NON-FASTING - SYPHILIS TREPONEMAL W/REFLEX - ANEMIA REFLEX PANEL 3. History of maternal fourth degree perineal laceration, currently - ICD9: V23.49, ICD10:O09.299 Planned primary c/s at [facility] - GESTATIONAL GLUCOSE SCREEN, 1-HOUR, 50 GRAM, [...] today Christofer Ayala MD documented in this encounterHocking Valley Community Hospital04-01-2025 NoteHNO ID: [id number] Author: THERESA BYNUM LPN Service: ? Author [...] severely ill: Yes Patient denies history of Guillain-[place] Syndrome (a severe paralytic illness): Yes Tdap Adacel injection was given without incident. See immunizations for details of immunizations administered today. VIS sheet provided: Yes Provider Dr Ayala was present in office at time of injection. Michelle Trent [facility]04-01-2025 History of Present illness Narrative* Theresa Bynum LPN - 01/10/2025 11:23 AM EDT Patient identified by name and date of [...] severely ill: Yes Patient denies history of Guillain-[place] Syndrome (a severe paralytic illness): Yes Tdap Adacel injection was given without incident. See immunizations for details of immunizations administered today. VIS sheet provided: Yes Provider Dr Ayala was present in office at time of injection. Michelle Trent MA documented in this encounterHocking Valley Community Hospital03-31-2025 Telephone encounter Note * Telephone Encounter - Angela Paul MD - 01/09/2025 11:57 AM EDT Agree with L&D eval [facility] Work Phone: [phone]) 190-111203-31-2025 Miscellaneous Notes* Telephone Encounter - Angela Paul MD - 01/09/2025 11:57 AM EDT Agree with L&D eval * Telephone Encounter - Marietta Werner RN - 01/09/2025 11:32 AM EDT 28w2d Patient called to report that her 37 lb daughter jumped directly on her abdomen causing the patientto have serve pain that radiated up to [...] and get there sooner. L&D notified. Marietta Werner RN documented in this encounterHocking Valley Community Hospital03-31-2025 Telephone encounter Note * Telephone Encounter - Marietta Werner RN - 01/09/2025 11:32 AM EDT 28w2d Patient called to report that her 37 lb daughter jumped directly on her abdomen causing the patientto have serve pain that radiated up to [...] and get there sooner. L&D notified. Marietta Werner RN [facility]03-27-2025 Telephone encounter Note* Telephone Encounter - Marietta Werner RN - 01/05/2025 9:12 AM EDT 27w5d Patient called stating that today is day 3 of having contraction like pain. Rates pain a 4-5, but states she has a high pain tolerance. Pain is intermittent. Its in her abdomen and low back. Denies LOF or VB. Believes that she is losing part of her mucous plug because she has solid chunks of yellow/ green tissue. States she spoke with provider solutions sales consultant as was instructed to rest, put her feet up, and push fluids. If her pain did not improve she was to go to L&D. Patient did not follow this advice. Calling this morning to see what she should do. Spoke with JG. Patient to go to L&D for evaluation. [facility] L&D notified. Marietta Werner RN [facility]03-27-2025 Miscellaneous Notes* Telephone Encounter - Marietta Werner RN - 01/05/2025 9:12 AM EDT 27w5d Patient called stating that today is day 3 of having contraction like pain. Rates pain a 4-5, but states she has a high pain tolerance. Pain is intermittent. Its in her abdomen and low back. Denies LOF or VB. Believes that she is losing part of her mucous plug because she has solid chunks of yellow/ green tissue. States she spoke with provider solutions sales consultant as was instructed to rest, put her feet up, and push fluids. If her pain did not improve she was to go to L&D. Patient did not follow this advice. Calling this morning to see what she should do. Spoke with JG. Patient to go to L&D for evaluation. [facility] L&D notified. Marietta Werner RN documented in this encounterHocking Valley Community Hospital03-21-2025 Telephone encounter Note * Telephone Encounter - Lenin Decker RN - 12/30/2024 10:08 AM EDT Patient notified she no longer needs the last two glucose levels of the 3 hour GTT drawn. Lab notified. Patient notified of instructions. States she had GDM with last and declined diabetic education and child nutrition director appointments for now. She has u/s already scheduled for 01/10/25 at time of her next visit. [facility]03-21-2025 Miscellaneous Notes* Telephone Encounter - Lenin Decker RN - 12/30/2024 10:08 AM EDT Patient notified she no longer needs the last two glucose levels of the 3 hour GTT drawn. Lab notified. Patient notified of instructions. States she had GDM with last and declined diabetic education and child nutrition director appointments for now. She has u/s already scheduled for 01/10/25 at time of her next visit. * Telephone Encounter - Stephani Aaron APRN.CNP - 12/30/2024 10:05 AM EDT Abnormal 3 hour, consistent with GDM. Supplies ordered. Nutrition consult and diabetes consult placed. Growth ultrasounds every 4 weeks at diagnosis ordered. Patient to bring glucose logs to next appointment. Stephani Aaron APRN.CNP documented in this encounterHocking Valley Community Hospital03-21-2025 Telephone encounter Note * Telephone Encounter - Stephani Aaron APRN.CNP - 12/30/2024 10:05 AM EDT Abnormal 3 hour, consistent with GDM. Supplies ordered. Nutrition consult and diabetes consult placed. Growth ultrasounds every 4 weeks at diagnosis ordered. Patient to bring glucose logs to next appointment. Stephani Aaron APRN.CNP [facility]03-13-2025 Telephone encounter Note* Telephone Encounter - Marietta Werner RN - 12/22/2024 4:26 PM EDT Patient notified. Marietta Werner RN [facility]03-13-2025 Miscellaneous Notes* Telephone Encounter - Marietta Werner RN - 12/22/2024 4:26 PM EDT Patient notified. Marietta Werner RN * Telephone Encounter - Tahmina Dumont MD - 12/22/2024 3:42 PM EDT The [facility] does not provide formal US at this stage of . Please have her keep her formal US as scheduled on 01/10/25. Tahmina Dumont MD * Telephone Encounter - Marietta Werner RN - 12/22/2024 3:16 PM EDT 25w5d Patient had an ultrasound done at the [facility]. They advised patient that her amnioticfluid looks low and the baby is all scrunched in there. Patient anxious and asking what she should do. Normal fluid level at her anatomy on 11/15. [facility] told patient that they would not be able to fax the report to our office. Asked patient to speak with them and see what the reading physician reports about her scan. Please advise. Marietta Werner RN documented in this encounterH[facility]03-[facility] Telephone encounter Note * Telephone Encounter - Tahmina Dumont MD - 12/22/2024 3:42 PM EDT The [facility] does not provide formal US at this stage of . Please have her keep her formal US as scheduled on 01/10/25. Tahmina Dumont MD [facility]03-13-2025 Telephone encounter Note* Telephone Encounter - Marietta Werner RN - 12/22/2024 3:16 PM EDT 25w5d Patient [facility] They advised patient that her amnioticfluid looks low and the baby is all [...] her scan. Please advise. Marietta Werner RN [facility]03-10-2025 Telephone encounter Note* Telephone Encounter - Marietta Cobb RN - 12/19/2024 8:43 AM EDT 2nd risk assessment form submitted 12/19/2024. Marietta Cobb RN [facility]03-10-2025 Miscellaneous Notes* Telephone Encounter - Marietta Cobb RN - 12/19/2024 8:43 AM EDT 2nd risk assessment form submitted 12/19/2024. Marietta Cobb RN documented in this encounterHocking Valley Community Hospital03-06-2025 Progress note* Quick Notes - Marietta Lugo MD - 12/15/2024 11:40 AM EST S: Leelee Zamora is a 29 year old female who presents at 04/01/2025, by Last Menstrual Period for aroutine visit. Denies headache, visual changes, chest pain, [...] unspecified obesity type - ICD9: 649.13, ICD10:O99.212 Growth q 4 weeks NSTs at 36 weeks - GESTATIONAL GLUCOSE SCREEN, 1-HOUR, 50 GRAM, NON-FASTING - SYPHILIS TREPONEMAL W/REFLEX - ANEMIA REFLEX PANEL 3. History of maternal fourth degree perineal laceration, currently - ICD9: V23.49, ICD10:O09.299 Planned primary c/s at [facility] - GESTATIONAL GLUCOSE SCREEN, 1-HOUR, 50 GRAM, [...] 1-HOUR, 50 GRAM, NON-FASTING Marietta Lugo MD [facility]03-06-2025 Miscellaneous Notes* Quick Notes - Marietta Lugo MD - 12/15/2024 11:40 AM EST S: Leelee Zamora is a 29 year old female who presents at 04/01/2025, by Last Menstrual Period for aroutine visit. Denies headache, visual changes, chest pain, [...] unspecified obesity type - ICD9: 649.13, ICD10:O99.212 Growth q 4 weeks NSTs at 36 weeks - GESTATIONAL GLUCOSE SCREEN, 1-HOUR, 50 GRAM, NON-FASTING - SYPHILIS TREPONEMAL W/REFLEX - ANEMIA REFLEX PANEL 3. History of maternal fourth degree perineal laceration, currently - ICD9: V23.49, ICD10:O09.299 Planned primary c/s at [facility] - GESTATIONAL GLUCOSE SCREEN, 1-HOUR, 50 GRAM, [...] NON-FASTING Marietta Lugo MD documented in this encounterHocking Valley [facility]03-06-2025 Instructions* Patient Instructions* Delmar Sousa MA - 12/15/2024 11:20 AM EST SEQUENTIAL SCREENINGS The [facility] offers sequential screenings for women who [...] testing. It will require an appointment withour aerial survey technician. This is not an ultrasound performed [...] the above symptoms, contact our office at [phone] and ask to speak with anurse. After hours, you can call doctors registry at [phone] OR call [facility] at [phone] ask to have the doctor solutions sales consultant paged. If you consider this an emergency, dial 9--1 or go to your nearest emergency department. NEED HELP? Are you dealing with a violent or abusive relationship? Are you a victim of rape or sexual assult? Call [facility] ([place]) 24 hour Crisis Hotline: 783.105.5960 or 718-416-2084. MANUAL Your Guide to a Healthy manual is now on-line. Visit [email or web address] to download your free copy documented in this encounterHocking Valley Community Hospital02-04-2025 Progress note* Quick Notes - Tahmina Dumont MD - 11/15/2024 3:21 PM EST KJ - VB No. LOF No. CTXS Yes - rare. Movement: present. Other c/o: No. Medication list reviewed. Physical Exam See Flow Sheet Gen: no accute distress, well appearing A/P 20w3d Estimated Date of Delivery: 04/01/25 Anatomy US today. Obesity - serial growth US at 28 weeks ordered. MOD - primary for h/o 4th degree laceration with fistula. Plans to delivery at [facility]. Tahmina Dumont MD [facility]02-04-2025 Miscellaneous Notes* Quick Notes - Tahmina Dumont MD - 11/15/2024 3:21 PM EST KJ - VB No. LOF No. CTXS Yes - rare. Movement: present. Other c/o: No. Medication list reviewed. Physical Exam See Flow Sheet Gen: no accute distress, well appearing A/P 20w3d Estimated Date of Delivery: 04/01/25 Anatomy US today. Obesity - serial growth US at 28 weeks ordered. MOD - primary for h/o 4th degree laceration with fistula. Plans to delivery at [facility]. Tahmina Dumont MD documented in this encounterHocking Valley [facility] Hospital02-04-2025 Instructions* Patient Instructions* Sophia Hamilton RN - 11/15/2024 2:57 PM EST SEQUENTIAL SCREENINGS The [facility] offers sequential screenings for women who [...] testing. It will require an appointment withour aerial survey technician. This is not an ultrasound performed [...] the above symptoms, contact our office at [phone] and ask to speak with anurse. After hours, you can call doctors registry at [phone] OR call [facility] at [phone] ask to have the doctor solutions sales consultant paged. If you consider this an emergency, dial 3-0-6 or go to your nearest emergency department. NEED HELP? Are you dealing with a violent or abusive relationship? Are you a victim of rape or sexual assult? Call [facility] ([place]) 24 hour Crisis Hotline: 177.780.3560 or 841-406-5922. MANUAL Your Guide to a Healthy manual is now on-line. Visit [email or web address] to download your free copy documented in this encounterHocking Valley Community Hospital02-04-2025 NoteHNO ID: [id number] Author: WINTER NATION MD Service: ? Author Type: Physician Type: Progress Notes Filed: 11/15/2024 15:46 Note Text: Obstetrics AND Gynecology [facility] Outpatient Visit Type: Maternal Medicine Consult Outpatient Visit Date: November 15, 2024 Service Time: 2:22 PM Requesting Provider: Tahmina Dumont History of Present Illness: Leelee Zamora is 29 year old at 20w3d presenting for consultation with [facility]aternal- [facility] at [facility] in the setting of history rectovaginal fistula, history of gestational diabetes, personal history of provoked VTE . Patient reported history of prolonged third stage of labor, forceps delivery complicated by fourth degree laceration. This was repaired x 2 by mud engineer with development of rectovaginal fistula. She was later repaired x 2 by gynecologic oncology including reported bloodstream infection requiring antibiotics in the ICU. Notes of repaired episiotomy in Care Everywhere include reference to C. Difficile infection as well. Patient reports that subsequent repairs after episiotomy breakdown with Dr. Velazquez at [place] which requiring ileostomy and reversal, these operative [...] disorder) 12/16/2018 Seeing Klaus Gonzalez at the [facility] center. History of chlamydia 16 YO History [...] mouth once daily for 14 days. PNV 526-nnwab-onjtx-3-fish oil 400-32.5 mcg-mg chew ALLERGIES Allergen Reactions [...] status: current everyday u (more content not included)...[facility]02-04-2025 History of Present illness Narrative* Winter Nation MD - 11/15/2024 2:22 PM EST Obstetrics & Gynecology [facility] Outpatient Visit Type: Maternal Medicine Consult Outpatient Visit Date: November 15, 2024 Service Time: 2:22 PM Requesting Provider: Tahmina Dumont History of Present Illness: Leelee Zamora is 29 year old at 20w3d presenting for consultation with Maternal- Medicine at [facility] in the setting of history rectovaginal fistula, history of gestational diabetes, personal history of provoked VTE . Patient reported history of prolonged third stage of labor, forceps delivery complicated by fourth degree laceration. This was repaired x 2 by mud engineer with development of rectovaginal fistula. She waslater repaired x 2 by gynecologic oncology including reported bloodstream infection requiring antibiotics in the ICU. Notes of repaired episiotomy in Care Everywhere include reference to C. Difficile infection as well. Patient reports that subsequent repairs after episiotomy breakdown with Dr. Velazquez at [place] whichrequiring ileostomy and reversal, these operative records are [...] mouth once daily for 14 days. PNV 678-cuowk-skfkg-3-fish oil 400-32.5 mcg-mg chew ALLERGIES Allergen Reactions [...] 4.7 4.3 - 5.6 % Final Comment: [place] [employer] guidelines indicate that patients with [...] a calculated value from HgbA1c and is food products sales representative of the average blood glucose [...] given planned delivery, recommend 6w prophylactic lovenox POT ROOM TAPPER History of maternal fourth degree perineal laceration, currently Overview H/o fourth degree laceration after forcep assisted delivery with rectovaginal fistula formation. Primary delivery recommended Current Assessment & Plan Primary has been recommended and patient agreeable to pCS Unless additional medical indications arise would recommend 39 week primary If tertiary center preferred patient may be schedule at [facility], [facility] or [facility] per her preference Rectovaginal fistula Overview [...] orletter to requesting physician via US mail. I spent a total of 55 minutes on the date of the service which included preparing to see the patient, mgbz-ol-kgok patient care, completing clinical documentation, obtaining and/or reviewing separately obtained history, and communicating results to the patient/family/caregiver. I shared my findings and recommendations via the shared medical record or via the mail to the referring provider. Winter Nation MD documented in this encounterHocking Valley [facility]01-16-2025 Telephone encounter Note * Telephone Encounter - Lenin Decker RN - 10/27/2024 9:39 AM EST Attempted to call patient. Unable to leave message because voicemail not set up. [employer] message sent. Lenin Decker RN [facility]01-16-2025 Miscellaneous Notes* Telephone Encounter - Lenin Decker RN - 10/27/2024 9:39 AM EST Attempted to call patient. Unable to leave message because voicemail not set up. Mychart message sent. Lenin Decker RN * Telephone Encounter - Tahmina Dumont MD - 10/27/2024 9:33 AM EST Noted. OK to keep next appointment as scheduled. Tahmina Dumont MD * Telephone Encounter - Marietta Werner RN - 10/26/2024 12:20 PM EST 17w4d Patient was seen at [facility] ER yesterday because she fell. States that an ultrasound was done and the ER physician consulted with Dr. Dumont. Patient concerned because the ER stated that the fetus was very low in pelvis and resting on the cervix. Patient has an anatomy US on 11/15/24. Advised a note wouldbe sent to KJ to review when she returns to the office tomorrow. Marietta Werner RN documented in this encounterHocking Valley [facility] Hospital01-16-2025 Telephone encounter Note * Telephone Encounter - Tahmina Dumont MD - 10/27/2024 9:33 AM EST Noted. OK to keep next appointment as scheduled. Tahmina Dumont MD [facility]01-15-2025 Telephone encounter Note* Telephone Encounter - Marietta Werner RN - 10/26/2024 12:20 PM EST 17w4d Patient was seen at [facility] ER yesterday because she fell. States that an ultrasound was done and the ER physician consulted with Dr. Dumont. Patient concerned because the ER stated that the fetus was very low in pelvis and resting on the cervix. Patient has an anatomy US on 11/15/24. Advised a note wouldbe sent to POLLY to review when she returns to the office tomorrow. Marietta Werner, RN [facility]01-09-2025 Progress note* Quick Notes - Tahmina Dumont MD - 10/20/2024 11:11 AM EST KJ - VB No. LOF No. CTXS [...] given for dental work. Tahmina Dumont MD [facility]01-09-2025 Miscellaneous Notes* Quick Notes - Tahmina Dumont MD - 10/20/2024 11:11 AM EST POLLY - VB No. LOF No. CTXS [...] work. Tahmina Dumont MD documented in this encounterHocking Valley Community Hospital01-09-2025 Instructions* Patient Instructions* Michelle Mcgee MA - 10/20/2024 10:21 AM EST SEQUENTIAL SCREENINGS The [facility] offers sequential screenings for women who [...] testing. It will require an appointment withour aerial survey technician. This is not an ultrasound performed [...] the above symptoms, contact our office at [phone] and ask to speak with anurse. After hours, you can call doctors registry at [phone] OR call [facility] at [phone] ask to have the doctor solutions sales consultant paged. If you consider this an emergency, dial 9-1- or go to your nearest emergency department. NEED HELP? Are you dealing with a violent or abusive relationship? Are you a victim of rape or sexual assult? Call [facility] ([place]) 24 hour Crisis Hotline: 416.296.6861 or 446-099-0331. MANUAL Your Guide to a Healthy manual is now on-line. Visit [email or web address] to download your free copy documented in this encounterHocking Valley Community Hospital01-06-2025 Telephone encounter Note * Telephone Encounter - Tatyana Aponte RN - 10/17/2024 11:54 AM EST Order signed and faxed. Tatyana Aponte RN [facility]01-06-2025 Miscellaneous Notes* Telephone Encounter - Tatyana Aponte RN - 10/17/2024 11:54 AM EST Order signed and faxed. Tatyana Aponte RN * Telephone Encounter - Tatyana Aponte RN - 10/13/2024 4:22 PM EST Breast pump request received via [employer]. Order to provider to sign. Tatyana Aponte RN documented in this encounterHocking Valley Community Hospital01-02-2025 Telephone encounter Note * Telephone Encounter - Tatyana Aponte RN - 10/13/2024 4:22 PM EST Breast pump request received via [employer]. Order to provider to sign. Tatyana Aponte RN [facility]01-01-2025 NoteHNO ID: [id number] Author: NUNO MADRID PA-C Service: ? Author Type: Physician Mixed Crop Farmer Type: Progress Notes Filed: 10/12/2024 15:19 Note Text: Subjective Leelee Zamora is a 29 year old female with a past medical history of GERD, DVT, PCOS, and anxiety who presents to [facility] care today for evaluation of left-sided facial [...] which included preparing to see the patient, clkg-mk-aoel patient care, completing clinical documentation, performing a medically appropriate examination, counseling and educating the patient/family/caregiver, and ordering medications, tests, or procedures. ODESSA Jarvis-[facility]01-01-2025 History of Present illness Narrative* Nuno Madrid PA-Robert - 10/12/2024 3:14 PM EST Subjective Leelee Zamora is a 29 year old female with a past medical history of GERD, DVT, PCOS, and anxiety who presents to [facility] care today for evaluation of left- sided facial pain and swelling for the past [...] no acute distress, and resting comfortably on thetable. HENT: Head: Normocephalic and atraumatic. Mouth/Throat: Dentition: [...] which included preparing to see the patient, fbip-qu-xhqv patient care, completing clinical documentation, performing a medically appropriate examination, counseling and educating the patient/family/caregiver, and ordering medications, tests,or procedures. Nuno Madrid PA-C documented in this encounterHocking Valley Community Hospital12-31-2024 NoteHNO ID: [id number] Author: ELVIA YAN APRN.WALKING DRAGLINE OPERATOR Service: ? Author Type: Nurse Practitioner Type: Progress Notes Filed: 10/11/2024 08:33 Note Text: Telemedicine Visit - Distance Health Virtual Visit Note Patient seen on [employer] Video Visit platform. Location of patient: [place] I have communicated my name and active licensure. The patient's identity and physical location were verified at the time of this visit. Either the patient or their legal food products sales representative has been informed of the [...] disorder) 12/16/2018 Seeing Klaus Gonzalez at the [facility] center. History of chlamydia 16 YO History [...] (Patient not taking: Reported on 09/15/2024) PNV 871-xbeiw-cjhgr-3-fish oil 400-32.5 mcg-mg chew No current facility-administered [...] - Red flags d (more content not included)...[facility]12-31-2024 History of Present illness Narrative* Elvia Yan, [facility] - 10/11/2024 8:22 AM EST Telemedicine Visit - Distance Health Virtual Visit Note Patient seen on [employer] Video Visit platform. Location of patient: [place] I have communicated my name and active licensure. The patient's identity and physical location wereverified at the time of this visit. Either the patient or their legal food products sales representative has been informed of the risks and benefits of -- and alternatives to -- treatment through a remote evaluation andconsents to proceed with the evaluation remotely. History of Present Illness Leelee Zamora is a 29 year old female who presents for complaint of tooth pain. Symptoms have beenpresent for 4 day(s) with symptoms that are: [...] disorder) 12/16/2018 Seeing Klaus Gonzalez at the [facility] center. History of chlamydia 16 YO History [...] (Patient not taking: Reported on 09/15/2024) PNV 690-gchpw-vnvgy-3-fish oil 400-32.5 mcg-mg chew No current facility-administered [...] person care - All questions answered Elvia Yan APRN.CNP documented in this encounterHocking Valley Community Hospital12-19-2024 NoteHNO ID: [id number] Author: TATYANA READ MA Service: ? Author Type: Splash Line Operator Type: Progress Notes Filed: 09/29/2024 10:56 Note Text: Scan on 09/28/2024 3:29 PM by Provider, External, PA-C: Consultation - [facility]iologyC[facility] History of Present illness Narrative* Tatyana Read MA - 09/29/2024 10:54 AM EST Scan on 09/28/2024 3:29 PM by Provider, JOSE Alvarez: Consultation - Cardiology documented in this encounterHocking Valley Community Hospital12-18-2024 Evaluation note* Diagnosis Onset Date Resolution Status Admit Date Dizziness acute September 28, 2024 2:39pm [facility] Work Phone: 1(377) 761-177612-18-2024 Evaluation note* Diagnosis Onset Date Resolution Status Admit Date Dizziness acute September 28, 2024 2:39pm 27 weeks gestation of acute January 05, 2025 10:07am contractions acute Finn 2024 10:07am [facility] Work Phone: 1(596) 708-623712-09-2024 Instructions* Patient Instructions* Madelin Swanson MA - 09/19/2024 8:47 AM EST SEQUENTIAL SCREENINGS The [facility] offers sequential screenings for women who [...] testing. It will require an appointment withour aerial survey technician. This is not an ultrasound performed [...] the above symptoms, contact our office at [phone] and ask to speak with anurse. After hours, you can call [facility] at [phone] OR call [facility] at [phone] ask to have the doctor solutions sales consultant paged. If you consider this an emergency, dial 9-1-0 or go to your nearest emergency department. NEED HELP? Are you dealing with a violent or abusive relationship? Are you a victim of rape or sexual assult? Call [facility] ([place]) 24 hour Crisis Hotline: 686.341.9379 or 755-798-1357. MANUAL Your Guide to a Healthy manual is now on-line. Visit [email or web address] to download your free copy documented in this encounterHocking Valley Community Hospital12-09-2024 Progress note* Quick Notes - Stephani Aaron APRN.WALKING DRAGLINE OPERATOR - 09/19/2024 8:29 AM EST EH - [...] Z3A.12 - Nuchal today, report pending - [id number] negative 3. Obesity affecting in second trimester, unspecified obesity type - ICD9: 649.13, ICD10:O99.212 - Pre BMI 37 - Start LDA - Plan for 32 week growth q 4 weeks. - Weekly NSTs at 36 weeks. 4. 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 Acute deep vein thrombosis (DVT) of [...] weeks or sooner as needed. Stephani Aaron APRN.CNP [facility]12-09-2024 Miscellaneous Notes* Quick Notes - Stephani Aaron APRN.CNP - 09/19/2024 8:29 AM EST EH - [...] Z3A.12 - Nuchal today, report pending - Yesikfnc48 negative 3. Obesity affecting in second trimester, unspecified obesity type - ICD9: 649.13, ICD10:O99.212 - Pre BMI 37 - Start LDA - Plan for 32 week growth q 4 weeks. - Weekly NSTs at 36 weeks. 4. 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 Acute deep vein thrombosis (DVT) of [...] needed. Stephani Aaron APRN.YADI documented in this encounterHocking Valley Community Hospital12-06-2024 Telephone encounter Note * Telephone Encounter - Zita Robins LPN - 09/16/2024 10:54 AM EST Patient given results and verbalized understanding of instructions given. Zita Robins LPN [facility]12-06-2024 Miscellaneous Notes* Telephone Encounter - Zita Robins LPN - 09/16/2024 10:54 AM EST Patient given results and verbalized understanding of instructions given. Zita Robins LPN * Telephone Encounter - Michael Rosado APRN.CNP - 09/16/2024 7:31 AM EST Please notify positive for rsv. Treat as cold. Refer to mud engineer recommended otc medication for relief. F/u for severe or worsening s/s documented in this encounterHocking Valley Community Hospital12-06-2024 Telephone encounter Note * Telephone Encounter - Michael Rosado APRN.CNP - 09/16/2024 7:31 AM EST Please notify positive for rsv. Treat as cold. Refer to mud engineer recommended otc medication for relief. F/u for severe or worsening s/s [facility] Work Phone: 1(590) 457-612412-05-2024 NoteHNO ID: [id number] Author: MAURO LOVE PA Service: ? Author Type: Physician Mixed Crop Farmer Type: Progress Notes Filed: 09/15/2024 13:01 Note Text: This note was created using NoteWriter. Subjective Leelee Zamora is a 29 year [...] 12 weeks , has not taken anything eugr-xxt-yfhrapr for symptoms. No other complaint. PAST MEDICAL [...] Peanut, Tree Nuts, and Morphine MEDICATIONS PNV 440-gqbnn-ikkbf-3-fish oil 400-32.5 mcg-mg chew aspirin, enteric coated [...] Pulmonary effort is normal. (more content not included)...[facility]12-05-2024 History of Present illness Narrative* Mauro Love PA - 09/15/2024 12:57 PM EST This note was created using [employer] Ltd[employer]. Subjective Leelee Zamora is a 29 year [...] 12 weeks , has not taken anything site-ymn-wzhvgth for symptoms. No other complaint. PAST MEDICAL [...] Peanut, Tree Nuts, and Morphine MEDICATIONS PNV 187-stcjx-ueghz-3-fish oil 400-32.5 mcg-mg chew aspirin, enteric coated [...] ER evaluation. ODESSA Hubbard documented in this encounterHocking Valley Community Hospital11-17-2024 Telephone encounter Note * Telephone Encounter - Rosalina Wright RN - 08/28/2024 6:24 PM EST Patient calling regarding fever and being 9 weeks . Conferenced to [facility] ladle operator, Malina , to speak with provider solutions sales consultant for OBGYN Dr. Jammie Funes. [facility]11-17-2024 Miscellaneous Notes* Telephone Encounter - Rosalina Wright RN - 08/28/2024 6:24 PM EST Patient calling regarding fever and being 9 weeks . Conferenced to [facility] ladle operator, Malina , to speak with provider solutions sales consultant for OBGYN Dr. Jammie Funes. documented in this encounterHocking Valley [facility] Hospital11-12-2024 Telephone encounter Note * Telephone Encounter - Jammie Funes APRN.CNP - 08/23/2024 1:21 PM EST Carrier screen order filed. Jammie Funes APRN.CNP [facility]11-12-2024 Miscellaneous Notes* Telephone Encounter - Jammie [...] she confirmed she did. documented in this encounterHocking Valley Community Hospital11-12-2024 Telephone encounter Note * Telephone Encounter - Hector Garcia RN - 08/23/2024 11:38 AM EST She is asking for the genetic carrier screening testing-[facility]11-12-2024 Telephone encounter Note* Telephone Encounter - Jammie Funes APRN.CNP - 08/23/2024 10:56 AM EST I ordered the Mat21 on 08/18/24. Jammie Funes APRN.WALKING DRAGLINE OPERATOR [facility]11-12-2024 Telephone encounter Note* Telephone Encounter - [...] want it and she confirmed she did. [facility]11-08-2024 Telephone encounter Note* Telephone Encounter - Eli Powell RN - 08/19/2024 9:48 AM EST 1st risk assessment form submitted 08/19/24. Eli Powell RN [facility]11-08-2024 Miscellaneous Notes* Telephone Encounter - Eli Powell RN - 08/19/2024 9:48 AM EST 1st risk assessment form submitted 08/19/24. Eli Powell RN documented in this encounterHocking Valley Community Hospital11-07-2024 Instructions* Patient Instructions* Theresa Bynum LPN - 08/18/2024 8:04 AM EST Please select the following link to access the [facility] Your Guide to a Healthy . [email or web address] documented in this encounterHocking Valley Community Hospital11-06-2024 History of Present illness Narrative* Jammie Funes APRN.YADI - 08/17/2024 3:30 PM EST Images from the original note were not included. Patient declined ripsaw operator. *Previous delivery at [facility] by Dr Julia Rodas was complicated with fourth degree laceration after forceps assisted delivery with rectovaginal fistula formation requiring multiple repairs. She desires care in [place] with delivery and [place]. Dr. Paul's note on July 25, 2024. [...] December 19, 2024 at the [facility] *Patient was seen by plastic [...] testing. Desires aneuploidy screening. Contact information for [employer] and [employer] given to patient INITIAL OB ASSESSMENT HPI: [...] Partner: Name: Jason Plata Age: 42 Occupation: Social[employer] Gender: Male PAST MEDICAL HISTORY Diagnosis Date [...] Outpatient Medications Medication Sig Dispense Refill PNV 419-takrb-asbfz-3-fish oil 400-32.5 mcg-mg chew albuterol HFA (PROAIR [...] discussed with the Patient or Patient's Authorized Director Semiconductor. As applicable, any other physician, advance practice provider, medical student, or other health professional student that will be observing or involved in the sensitive examination for educational or training purposes was discussed with the Patient or Authorized Director Semiconductor. The Patient or Authorized Director Semiconductor has agreed to proceed with the sensitive [...] activity, CRL consistent with LMP. Jammie Funes APRN.WALKING DRAGLINE OPERATOR SBIRT Leelee Saucedo Noah was given the 4P's screening tool. Leelee [...] to rescreen early third trimester. Jammie Funes APRN.CNP ASSESSMENT: 29 year old at 7w4d wks gestational age PLAN: 1) Patient oriented to practice. Patient given new OB orientation folder. Discussed nutrition, folic acid supplementation, dietary guidelines, exercise, smoking, alcohol, caffeine, and drug use. Discussed gestational weight gain guidelines. Discussed routine OB labs including STD/HIV. Discussed how to access Your guide to a health and the Livestock Nutritionist. Reviewed midwifery and drug room operator services that are available. 2) Screening: Hemoglobin [...] 4 weeks or sooner almita. Jammie Funes APRN.CNP documented in this encounterHocking Valley Community Hospital10-23-2024 Telephone encounter Note * Telephone Encounter [...] evaluated. Patient voices understanding. Katya Tinsley RN [facility]10-23-2024 Miscellaneous Notes* Telephone Encounter - Katya [...] understanding. Katya Tinsley RN documented in this encounterHocking Valley Community Hospital10-14-2024 History of Present illness Narrative* Angela Paul MD - 07/25/2024 1:02 PM EDT Leelee Zamora is a 29 year old female who presents for confirmation. HPI: Patient is here for confirmation. Previous delivery with Dr. Julia Rodas of [place]. 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 H/o DVT post op. Saw a vehicle sales professional about 2 weeks ago. Denies DBT during , or while on hormonal contraception. 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 Menstrual cycles q 30 days with 5-6 days bleeding. LMP 06/25/2024 that is exact. Positive urine test at [facility] on 07/22/24. Having some vaginal and pelvic cramping and pressure. No bleeding. OB History T1 L1 SAB0 IAB0 Ectopic0 Multiple0 Live Births1 Comment: Menarche: 11; Age at 1st : 26; Premenopausal LMP- 11/19/23 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 Operator History LMP: 06/25/2024 (Exact Date), Having periods Age at Menarche: 9 Age at First : 25 Age at Menopause: 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 Operator History Comments: Sexual Activity: Yes; No partner [...] weeks ago, and await further recommendations. Angela Paul DO I spent 20 minutes in the visit, with more than 50% of the total iifk-pw-bnwc time of the visit in counseling / coordination of care. documented in this encounterHocking Valley Community Hospital10-11-2024 Telephone encounter Note * Telephone Encounter - Marietta Werner RN - 07/22/2024 1:34 PM EDT Attempted to notify patient. No answer and unable to leave a voicemail. Marietta Werner RN [facility]10-11-2024 Miscellaneous Notes* Telephone Encounter - Marietta [...] RN - 07/22/2024 12:32 PM EDT LMP 06/25/24 - 3w6d Had faint UPT at home today. Concerned because last she said she had infertility treatment and has some questions regarding her and being high risk. She is a previous [facility] patient and now wants to continue care with [facility]. I did schedule for 07/25 to discuss concerns with SW, but patient is asking if she can have blood test done prior to that visit to make sure she is . No bleeding, cramping or other symptoms as of now. Lenin Decker RN documented in this encounterHocking Valley Community Hospital10-11-2024 Telephone encounter Note * Telephone Encounter - Sandhya Reno APRN.CNM - 07/22/2024 1:24 PM EDT Unfortunately patient is not established with us and will need appointment first to discuss. Can review with SW at visit and orders. I apologize. Sandhya Reno APRN.CNM [facility] Work Phone: [phone] Telephone encounter Note* Telephone Encounter - Lenin Decker RN - 07/22/2024 12:32 PM EDT LMP 06/25/24 - 3w6d Had faint UPT at home today. Concerned because last she said she had infertility treatment and has some questions regarding her and being high risk. She is a previous [facility] patient and now wants to continue care with [facility]. I did schedule for 07/25 to discuss concerns with SW, but patient is asking if she can have blood test done prior to that visit to make sure she is . No bleeding, cramping or other symptoms as of now. Lenin Decker RN [facility]10-01-2024 Instructions* Patient Instructions* Angi Santos MD - 07/12/2024 11:24 AM EDT For scheduling questions, please call [phone] (tests and appointments). For symptom management or care coordination questions, please call Humera Stanley at [phone] use my chart to reach us. After hours with medical questions, please call the doctor on-call at [phone]. documented in this encounterHocking Valley Community Hospital10-01-2024 History of Present illness Narrative* Angi Santos MD - 07/12/2024 11:01 AM EDT Consultation requested by Darlin Fleming APRN.CNP for an opinion regarding history of [...] (primary encounter diagnosis) (I47.9) PT (paroxysmal tachycardia) ([facility]) (R79.1) INR (international normal ratio) abnormal (Z87.898) [...] with more than 50% of the total fwul-nw-ouqp time of the visit in counseling / [...] disorder) 12/16/2018 Seeing Klaus Gonzalez at the [facility] center. History of chlamydia 16 YO History [...] Range Status 07/11/2024 6.1 % Final Abs [place] Date Value Ref Range Status 07/11/2024 0.36 [...] 05/26/2017 10 Angi Santos MD Cc: Darlin Fleming APRN.WALKING DRAGLINE OPERATOR documented in this encounterHocking Valley Community Hospital09-19-2024 Telephone encounter Note * Telephone Encounter - Maria Fernanda Jin - 06/30/2024 12:14 PM EDT Patient ended up wanting to go to [facility]. Patient scheduled [facility]09-19-2024 Miscellaneous Notes* Telephone Encounter - Maria Fernanda Jin - 06/30/2024 12:14 PM EDT Patient ended up wanting to go to [facility]. Patient scheduled * Telephone Encounter - Briseida Hui LPN - 06/29/2024 8:42 AM EDT We would need records pertaining to H/O blood clots. There are no records that mention this in [facility]. The only place that I can find this was documented in was an H&P from [facility] 10/01/2023: Acute deep vein thrombosis (DVT) of popliteal vein of right lower extremity (HCC) Assessment: Hx of DVT x 2 - Upper extremity in 2020, LE in 2021. No hypercoagulable work up, but does report mom having high factor VIII. This was not mentioned in the previous surgical H&P from Dr. Nj in 05/2023. I cannot find record of this in [facility] system either. Please provide records so we can schedule patient appropriately. Briseida Hui LPN * Telephone Encounter - Maria Fernanda Jin - 06/29/2024 8:10 AM EDT Patient is being referred to Hematology DX: History of Blood Clots Insurance: [employer] Referred by: Darlin Fleming APRN. WALKING DRAGLINE OPERATOR Please review and advise documented in this encounterHocking Valley Community Hospital09-19-2024 Note Indication Evaluation of abnormal uterine [...] Bustillo RDMS Read By: Kurtis Hardy M.D.MATERNAL [id number] History of Present illness Narrative* Kurtis Roth MD - 06/30/2024 11:43 AM EDT The patient presents for requested ultrasound. Full report available in the Imaging tab in [facility]. Kurtis Roth MD documented in this encounterHocking Valley [facility]09-18-2024 Telephone encounter Note * Telephone Encounter - Briseida Hui LPN - 06/29/2024 8:42 AM EDT We would need records pertaining to H/O blood clots. There are no records that mention this in [facility]. The only place that I can find this was documented in was an H&P from [facility] 10/01/2023: Acute deep vein thrombosis (DVT) of popliteal vein of right lower extremity (HCC) Assessment: Hx of DVT x 2 - Upper extremity in 2020, LE in 2021. No hypercoagulable work up, but does report mom having high factor VIII. This was not mentioned in the previous surgical H&P from Dr. Nj in 05/2023. I cannot find record of this in [facility] system either. Please provide records so we can schedule patient appropriately. Briseida Hui LPN [facility]09-18-2024 Telephone encounter Note* Telephone Encounter - Maria Fernanda Jin - 06/29/2024 8:10 AM EDT Patient is being referred to Hematology DX: History of Blood Clots Insurance: [employer] Referred by: Darlin Fleming APRN. YADI Please review and advise [facility]09-17-2024 History of Present illness Narrative* Chetna Nettles APRN.YADI - 06/28/2024 2:37 PM EDT Images from the original note were not included. MEDICAL BREAST PATIENT NAME: Leelee Zamora REASON FOR VISIT: Follow up clinical exam HISTORY of PRESENT ILLNESS: Leelee Zamora is a 29 year old year old premenopausal woman who presents to the [facility] [place] today for follow up clinical exam. She [...] disorder) 12/16/2018 Seeing Klaus Gonzalez at the [facility] center. History of chlamydia 16 YO History [...] which included preparing to see the patient, xurg-ta-mcef patient care, completing clinical documentation, obtaining and/or reviewing separately obtained history, performing a medically appropriate examination, counseling and educating the pat ient/family/caregiver, and ordering medications, tests, or procedures. Chetna Nettles APRN.YADI Medical Breast Specialist Women's Health Nurse Practitioner CC: Cooper Jordan [address] [facility] [address] [address] [place] [address] documented in this encounterHocking Valley Community Hospital09-17-2024 Nurse Note* Quinton Caldera MA - [...] disorder) 12/16/2018 Seeing Klaus Gonzalez at the [facility] center. History of chlamydia 16 YO History [...] per week Comment: monthly Drug use: No [facility]09-17-2024 Nurse Note* Quinton Caldera MA - 06/28/2024 2:24 PM EDT Last mammogram on: n/a Results: Is the patient active on [employer] Yes Electronically Signed By: Quinton Caldera MA [...] monthly Drug use: No documented in this encounterHocking Valley Community Hospital09-16-2024 Instructions* Patient Instructions* Darlin Fleming APRN.CNP - 06/27/2024 2:47 PM EDT -schedule with Dr. Mccullough once labs are completed and surgery approved documented in this encounterHocking Valley Community Hospital09-16-2024 History of Present illness Narrative* Darlin Fleming APRN.CNP - 06/27/2024 2:32 PM EDT Images from [...] 1.00 - 4.00 k/uL 1.89 2.21 Abs [place] <0.87 k/uL 0.47 0.42 Abs Eosin <0.46 [...] Blood clot to heart ? 10/2021 at [facility], DVT 02/2022 at [facility], both post op, had 4th degree tear and several surgeries after including ileostomy, ileostomy reversal, hernia surgery Anticoagulation (aspirin, coumadin, xarelto,etc) [] [x] What........... Reason:........... Immunosuppressants (steroid, biologic meds infusion, etc) [] [x] What........... Reason:........... Pt AGAINST blood transfusion? [] [x] Works at [employer]. Does take multiple vitamins. Objective: PAST MEDICAL [...] Past Histories independently gathered by the clinical technical support engineer and the remaining scribed note accurately describes my personal service to the patient. 30 Minutes total visit spent face to face with patient. Greater than 50% of the time was spent for counseling and coordination of care, discussing treatment options and recommendations. Darlin Fleming APRN.CNP June 27, 2024 documented in this encounterHocking Valley [facility] Hospital09-14-2024 Instructions* Patient Instructions* Laurie Florentino APRN.CNP - 06/25/2024 10:18 AM EDT [...] CLAVULANATE 125 MG TABLET Delia Louis, Student TEXTILES SALES REPRESENTATIVE documented in this encounterHocking Valley Community Hospital09-14-2024 History of Present illness Narrative* Laurie Florentino APRN.CNP - 06/25/2024 10:00 AM EDT Ant Zamora is a 29 year old female [...] CLAVULANATE 125 MG TABLET Delia Louis, Student TEXTILES SALES REPRESENTATIVE TEACHING PROVIDER (Physician/PA/CHUTE BUILDER) NOTE OF PERSONAL INVOLVEMENT IN CARE: I have personally seen and examined the patient and performed the medical decision-making components. I have reviewed the Advanced Practice Registered Nurse (CHUTE BUILDER) Student's documentation and verified the findings in the note as written. Any additions or changes are noted in bold/italics. Signature: Laurie Florentino Date: 06/25/2024 Time: 10:21 AM documented in this encounterHocking Valley [facility] Hospital08-28-2024 Telephone encounter Note * Telephone Encounter - Janette Donovan LPN - 06/08/2024 3:45 PM EDT Pt was seen in the office 06/06/24. See office note for med change. [facility]08-28-2024 Miscellaneous Notes* Telephone Encounter - Janette [...] Methylin ER, Ritalin SR), and QuillichewER. The [facility] Policy for Medical Necessity as posted on the [facility] website and [facility] Preferred Drug List criteria were reviewed and per [place] Administrative Code Rule 5160-1-01 (C) and (B), [...] might be available through the community. Payer: [facility] Jazmin Thompson MA * Telephone Encounter - Janette Donovan LPN - 05/10/2024 3:22 PM EDT ELECTRONIC pa REC'D AND COMPLETED FOR VILOXAINE(QELBREE) documented in this encounterHocking Valley Community Hospital08-26-2024 History of Present illness Narrative* Cooper Gastelum APRN.WALKING DRAGLINE OPERATOR - 06/06/2024 3:59 PM EDT Chief Complaint [...] Comment: Started at age 19 up to 10/13-1 PPD, quit 05/201812/16/2018: SAMAN (generalized anxiety disorder) [...] right leg 2020: D&C, DIAG AND/OR THERAPEUTIC 2012: EXTRACTION, ERUPTED TOOTH OR EXPOSED ROOT (ELEVATION [...] - ATOMOXETINE 10 MG CAPSULE Cooper Gastelum APRN.YADI documented in this encounterHocking Valley Community Hospital08-02-2024 Telephone encounter Note * Telephone Encounter - Zita Robins LPN - 05/13/2024 8:01 AM EDT Patient given results and verbalized understanding of instructions given. Zita Robins LPN [facility]08-02-2024 Miscellaneous Notes* Telephone Encounter - Zita Robins LPN - 05/13/2024 8:01 AM EDT Patient given results and verbalized understanding of instructions given. Zita Robins LPN * Telephone Encounter - Alecia Dumont APRN.CNP - 05/13/2024 7:53 AM EDT Please call patient and let her know that her urine culture came back positive with bacteria that needs treated with Macrobid twice a day for 5 days. Patient should take this with her Flagyl. If patient has symptoms after treatment she needs to follow-up with primary care documented in this encounterHocking Valley Community Hospital08-02-2024 Telephone encounter Note * Telephone Encounter - Alecia Dumont APRN.CNP - 05/13/2024 7:53 AM EDT Please call patient and let her know that her urine culture came back positive with bacteria that needs treated with Macrobid twice a day for 5 days. Patient should take this with her Flagyl. If patient has symptoms after treatment she needs to follow-up with primary care [facility]08-01-2024 Telephone encounter Note* Telephone Encounter - Sandra Leung MA - 05/12/2024 8:41 AM EDT Patient notified of results, verbalized understanding of instructions given. Sandra Leung MA [facility]08-01-2024 Miscellaneous Notes* Telephone Encounter - Sandra Leung MA - 05/12/2024 8:41 AM EDT Patient notified of results, verbalized understanding of instructions given. Sandra Leung MA * Telephone Encounter - Michael Rosado APRN.CNP - 05/12/2024 8:27 AM EDT Please notify positive for BV. This is an overgrowth of normal bacteria, not an STD. I will send treatment to your pharmacy. Do not drink alcohol while on this treatment. F/u with pcp or mud engineer for continued s/s documented in this encounterHocking Valley Community Hospital08-01-2024 Telephone encounter Note * Telephone Encounter - Michael Rosado APRN.CNP - 05/12/2024 8:27 AM EDT Please notify positive for BV. This is an overgrowth of normal bacteria, not an STD. I will send treatment to your pharmacy. Do not drink alcohol while on this treatment. F/u with pcp or mud engineer for continued s/s [facility]07-31-2024 History of Present illness Narrative* Sandhya Aguilar APRN.CNP - 05/11/2024 9:41 AM EDT This note was created using Infinity Wireless Ltdriter. Subjective Leelee Zamora is a 29 year [...] is provided by the patient. No language translator was used. Female Gu Problem This is [...] Comment: Started at age 19 up to 10/13-1 PPD, quit 05/201812/16/2018: SAMAN (generalized anxiety disorder) [...] VAGINOSIS NAAT - JOJO/TRICHOMONAS NAAT Sandhya Aguilar APRN.WALKING DRAGLINE OPERATOR documented in this encounterHocking Valley Community Hospital07-31-2024 Telephone encounter Note * Telephone Encounter [...] Methylin ER, Ritalin SR), and QuillichewER. The [facility] Policy for Medical Necessity as posted on the [facility] website and [facility] Preferred Drug List criteria were reviewed and per [place] Administrative Code Rule 5160-1-01 (C) and (B), [...] might be available through the community. Payer: [facility] Jazmin Thompson MA [facility]07-30-2024 Telephone encounter Note* Telephone Encounter - Janette Donovan LPN - 05/10/2024 3:22 PM EDT ELECTRONIC pa REC'D AND COMPLETED FOR VILOXAINE(QELBREE) [facility]07-30-2024 History of Present illness Narrative* Cooper Gastelum APRN.WALKING DRAGLINE OPERATOR - 05/10/2024 2:42 PM EDT VIRTUAL VISIT PROGRESS NOTE This is a virtual visit using [employer] Video Visit. It required patient- provider interaction for the medical decision making as documented below. I have communicated my name and active licensure. The patient's identity and physical location wereverified at the time of this visit. Either the patient or their legal food products sales representative has been informed of the [...] disorder) 12/16/2018 Seeing Klaus Gonzalez at the [facility] center. History of chlamydia 16 YO History [...] which included preparing to see the patient, pobs-sb-cwyc patient care, completing clinical documentation, obtaining and/or reviewing separately obtained history, performing a medically appropriate examination, counseling and educating the pat ient/family/caregiver, ordering medications, tests, or procedures, communicating with other HCPs (not separately reported), and care coordination (not separately reported) Cooper Gastelum APRN.YADI documented in this encounterHocking Valley Community Hospital07-22-2024 History of Present illness Narrative* Darryl Pedro APRN.YADI - 05/02/2024 6:43 AM EDT VIRTUAL VISIT PROGRESS NOTE This is a virtual visit using Tr[employer] Video Visit. It required patient- provider interaction for the medical decision making as documented below. I have communicated my name and active licensure. The patient's identity and physical location wereverified at the time of this visit. Either the patient or their legal food products sales representative has been informed of the [...] 02/2022 Allergic rhinitis, unspecified 12/16/2018 Bowel obstruction ([facility]) 2022 Encounter for insertion of mirena IUD [...] which included preparing to see the patient, qmah-tr-bnao patient care, completing clinical documentation, obtaining and/or reviewing separately obtained history, counseling and educating the patient/family/caregiver, and ordering medications, tests, or procedures. Darryl Pedro APRN.YADI documented in this encounterHocking Valley Community Hospital05-16-2024 History of Present illness Narrative* Keri Rush APRN.YADI - 02/25/2024 1:25 PM EDT CC Patient [...] disorder) 12/16/2018 Seeing Klaus Gonzalez at the [facility] center. History of chlamydia 16 YO History [...] not ill-appearing or toxic-appearing. HENT: Mouth/Throat: Lips: [employer]. Mouth: Mucous membranes are moist. Pharynx: Oropharynx [...] PCR - C. DIFFICILE PCR Keri Rush APRN.WALKING DRAGLINE OPERATOR Prescription instructions reviewed with patient as applicable. Potential red flag symptoms discussed with the patient. Reviewed appropriate action plan to take if red flag symptoms occur. Patient agreeable to treatment plan Keri Rush APRN.WALKING DRAGLINE OPERATOR documented in this encounterHocking Valley Community Hospital05-16-2024 Telephone encounter Note * Telephone Encounter - Fay Rodgers OCCA - 02/25/2024 12:56 PM EDT Patient notified. BREONNA Santa [facility]05-16-2024 Miscellaneous Notes* Telephone Encounter - Fay Rodgers OCCA - 02/25/2024 12:56 PM EDT Patient notified. BREONNA Santa * Telephone Encounter - Keri Rush APRN.WALKING DRAGLINE OPERATOR - 02/25/2024 12:52 PM EDT She will [...] Thank you. BREONNA Santa documented in this encounterHocking [facility]05-[facility] Telephone encounter Note * Telephone Encounter - Keri Rush APRN.CNP - 02/25/2024 12:52 PM EDT She will need seen in the office as scheduled Keri Rush APRN.CNP [facility] Work Phone: [phone] Telephone encounter Note* Telephone Encounter - Fay [...] review and advise. Thank you. BREONNA Santa [facility]05-09-2024 Instructions* Patient Instructions* Cristino Rodriguez PA-C - 02/18/2024 7:43 PM EDT - Begin treatment with Macrobid 100 mg BID for 5 days - NITROFURANTOIN MONOHYDRATE & MACROCRYSTAL 100 MG ORAL CAP Increase fluids Call PCP if symptoms are not better Go to ER for fever and flank pain documented in this encounterHocking Valley Community Hospital05-09-2024 History of Present illness Narrative* Cristino Rodriguez PA-C - 02/18/2024 7:40 PM EDT This note was created using Infinity Wireless Ltdriter. Subjective Leelee Zamora is a 28 year old female. [facility] Telemedicine Visit - Distance Health Virtual Visit Note Patient seen on [place] Otaku Mode Video Visit platform. Location of patient: [place] I have communicated my name and active licensure. The patient's identity and physical location wereverified at the time of this visit. Either the patient or their legal food products sales representative has been informed of the risks and benefits of -- and alternatives to -- exam components are done virtually with patients participation as needed. Seen on Atterocor Online Located in [place] Pt has dysuria [...] CAP Cristino Rodriguez PA-C documented in this encounterHocking Valley [facility] Hospital05-07-2024 Instructions* Patient Instructions* Raiza Brasher MD - 02/16/2024 4:28 PM EDT BMI psychology - Dr Mary JORDAN documented in this encounterHocking Valley Community Hospital05-07-2024 History of Present illness Narrative* Raiza Brasher MD - 02/16/2024 3:50 PM EDT Images from the original note were not included. BMI Obesity Medicine FollowUp Note February 16, 2024 Patient Summary: Leelee Zamora is 28 year old Female who presents for follow-up evaluation of her obesity and related complications to the [facility]. Interval History: Returns after 3 months. Reports [...] Initial loss 80lbs (30%BW) since 08/2022 with Mounvinicio ( supply/PA issues) and phentermine; Weight gained from bronson weight (192lbs) likely 2/2 DC Mobasil, inactivity. She has stable wt around 200 [...] which included preparing to see the patient, sdew-je-mdlh patient care, completing clinical documentation, performing a medically appropriate examination, counseling and educating the patient/family/caregiver, and ordering medications, tests,or procedures. documented in this encounterHocking Valley [facility] Hospital04-23-2024 History of Present illness Narrative* Maryann [...] 12/16/2018 Started at age 19 up to 1-1 PPD, quit 05/2018 SAMAN (generalized anxiety disorder) 12/16/2018 Seeing Klaus Gonzalez at the [facility] center. History of chlamydia 16 YO History [...] plan. Maryann Matias PA-C documented in this encounterHocking Valley Community Hospital04-17-2024 History of Present illness Narrative* Michael Rosado APRN.WALKING DRAGLINE OPERATOR - 01/27/2024 11:49 AM EDT Subjective HPI [...] rest Michael Rosado APRN.CNP documented in this encounterHocking Valley Community Hospital03-17-2024 Instructions* Patient Instructions* Vianney Richarsdon APRN.CNP - 12/27/2023 11:28 AM EDT Take the medication as directed. Follow-up with your PARTS CLERK PLANT MAINTENANCE for any other concerns. documented in this encounterHocking Valley Community Hospital03-17-2024 History of Present illness Narrative* Vianney Richardson APRN.YADI - 12/27/2023 11:17 AM EDT Images from [...] visit. Either the patient or their legal food products sales representative has been informed of the risks and benefits of -- and alternatives to -- treatment through a remote evaluation andconsents to proceed with the evaluation remotely. Platform patient seen on: [employer] Zoom Video Visit platform Location of patient: [place] Leelee Zamora is a 28 year old [...] and it was negative. Pt has a PARTS CLERK PLANT MAINTENANCE, but cannot get in for some time. [...] the medication as directed. Follow-up with your PARTS CLERK PLANT MAINTENANCE for any other concerns. Medical Decision Making: [...] worsening symptoms or life-threatening concerns Vianney Richardson APRN.WALKING DRAGLINE OPERATOR If you let us know who your [...] would like to continue care with a [facility] Virtual Primary Care physician, please ask your provider to place a Establish PrimaryCare order. Use 5 examples to manage your care, wherever you are, 04/05, on your mobile device or computer. 5 examples connects you to AudioPixels so you can access all your health information in one place and also schedule and request virtual appointments with primary care providers. documented in this encounterHocking Valley Community Hospital02-29-2024 Miscellaneous Notes* Telephone Encounter - Humberto [...] IUD removed. You can schedule this through AudioPixels or calling the office at [phone] to set up an appointment. If you are deciding to move forward with the I would recommend starting a vitamin daily and tracking your cycles and performing an ovulation predictor kit that you can lemon picker at any pharmacy or [employer] store and start performing the cycle days 12 through 18 to find out if you are ovulating on a regular basis in which cycle day that is happening on. Feel free to schedule with any of us within the office as unfortunately my schedule is tight as I am part-time at [employer] and part-time covering the [facility] emergency department. Yours in women's health, Humberto Mendoza. Humphrey Schultz. documented in this encounterHocking Valley Community Hospital02-28-2024 History of Present illness Narrative* Mauro Love PA - 12/09/2023 12:49 PM EST This note was created using Inf[employer]riter. Subjective Leelee Zamora is a 28 year [...] disorder) 12/16/2018 Seeing Klaus Gonzalez at the [facility] center. History of chlamydia 16 YO History [...] ER evaluation. ODESSA Hubbard documented in this encounterHocking Valley Community Hospital02-25-2024 Instructions* Patient Instructions* Elvia Yan APRN.[facility] - 12/06/2023 8:32 AM EST VAGINAL [...] pill taken by mouth. documented in this encounterHocking Valley Community Hospital02-25-2024 History of Present illness Narrative* Elvia Yan APRN.YADI - 12/06/2023 8:21 AM EST Telemedicine Visit - Distance Health Virtual Visit Note Patient seen on [employer] Otaku Mode Video Visit platform. Location of patient: [place] I have communicated my name and active licensure. The patient's identity and physical location wereverified at the time of this visit. Either the patient or their legal food products sales representative has been informed of the [...] 02/2022 Allergic rhinitis, unspecified 12/16/2018 Bowel obstruction ([facility]) 2022 Encounter for insertion of mirena IUD [...] persist - FLUCONAZOLE 150 MG TABLET Elvia Yan APRN.CNP If you let us know who [...] would like to continue care with a [facility] physician, please ask your provider to place a Establish PrimaryCare order. Use 5 examples to manage your care, wherever you are, 04/05, on your mobile device or computer. 5 examples connects you to AudioPixels so you can access all your health information in one place and also schedule and request virtual appointments with primary care providers. documented in this encounterHocking Valley Community Hospital02-16-2024 History of Present illness Narrative* Abigail Ramírez RT(R) - 11/27/2023 1:30 PM EST Radiology Service [...] PATIENT PRESENTS WITH AN IMPLANTABLE OR ATTACHED RETAIL BUSINESS DEVELOPMENT MANAGER: No RADIOLOGY DEPARTMENT: Mammography PERIPHERAL IV DATA: Not applicable SIGNED BY: RT Xiomara(R) November 27, 2023 2:24 PM documented in this encounterHocking Valley Community Hospital02-16-2024 History of Present illness Narrative* Chetna Nettles APRN.WALKING DRAGLINE OPERATOR - 11/27/2023 1:02 PM EST Images from [...] old premenopausal woman who presents to the [facility] [place] today for evaluation of nipple discharge. She reports for the past couple years she has noticed milky discharge from RIGHT nipple more than left. Discharge is expressed when she feels congestion in nipple and sometimes seem spontaneous. She last expressed nipple discharge 3 weeks ago. It was milky and from multiple ducts. Virtual appointment completed today with Cooper and BW was ordered to further assess nipple discharge [...] which included preparing to see the patient, qebk-uf-uauj patient care, completing clinical documentation, obtaining and/or reviewing separately obtained history, performing a medically appropriate examination, counseling and educating the patient/family/caregiver, ordering medications, tests, or procedures, and communicating results to the patient/family/caregiver. Chetna Nettles APRN.YADI Medical Breast Specialist November 27, 2023 CC: Cooper Jordan [address] [facility] [id number] [address] [place] [address] documented in this encounterHocking Valley Community Hospital02-16-2024 Instructions* Patient Instructions* Quinton Caldera Ma [...] breast cancer, and a history of Ashkenazi Church ancestry. Breast pain is very common and usually is not a sign of cancer, but should be evaluated by a breastspecialist. For comfort, simply reducing caffeine (coffee, tea, chocolate, energy drinks, sodas) inyour diet can provide relief. A properly fitted bra can also be helpful in reducing breast pain. Ifthose two measures do not provide relief, taking Evening [place] Oil 1000mg capsules twice a day for [...] www.caregivercelebrations.com. Thank you ! documented in this encounterHocking Valley Community Hospital02-16-2024 History of Present illness Narrative* Cooper Jordan PA-C - 11/27/2023 12:16 PM EST OGI VIRTUAL VISIT Virtual limitations reviewed with patient, as well as possible need to travel to have diagnostic services. Patient voiced understanding. Patient seen on [employer] Otaku Mode Video Visit platform. Location of patient: [place] I have communicated my name and active licensure. The patient's identity and physical location wereverified at the time of this visit. Either the patient or their legal food products sales representative has been informed of the [...] care. Cooper Jordan PA-C documented in this encounterHocking Valley Community Hospital02-13-2024 Discharge summary Author Tanner Ryan [facility] November 24, 2023 2:34pm Note Date/Time November 24, 2023 12:11pm [facility] Medical Records Department [address] [place] [address] Emergency Department Summary 11/24/23 MR#: [id number] Acct: [id number] Name: LEELEE ZAMORA Rep #:[id number] : [...] recently finished and started 5 days ago. [facility] Medical History ADHD (attention deficit hyperactivity disorder) [...] % (Auto) 66.3 Lymph % (Auto) 27.4 [place] % (Auto) 5.2 Eos % (Auto) 0.5 [...] Clarity Cloudy Urine pH 6.5 Ur Specific [place] 1.015 Urine Protein 30 H Urine Glucose [...] Signed: Yaya Soto MD at 14:21 EST Reading Location ID and State: [address] [place] [address] , Service support , Discharge Plan Triage Chief Complaint: Abd [...] your Primary Care Provider. Call [facility] ([phone]) or report to the closest Emergency Room. Call 911 if necessary. 11/24/23 1434 <Electronically signed by Tanner Ryan MD> Cosigner Signature (if applicable): CC: Dr. Alfredo Barroso MD ~ Signed [facility] Work Phone: 1(743) 242-706602-13-2024 Miscellaneous Notes* Telephone Encounter - Tomasa Willett [...] was 11/19 Protocols used: Abdominal Pain - [id number] documented in this encounterHocking Valley Community Hospital02-12-2024 History of Present illness Narrative* Alecia Dumont APRN.CNP - 11/23/2023 6:53 PM EST Patient came [...] wants to take herself. documented in this encounterHocking Valley Community Hospital02-12-2024 History of Present illness Narrative* Armando [...] person evaluation at /. documented in this encounterHocking Valley Community Hospital02-07-2024 Miscellaneous Notes* Telephone Encounter - Zehra [...] : Mirena Protocols used: Blood Pressure - [id number]-[id number] documented in this encounterHocking Valley Community Hospital02-07-2024 Instructions* Patient Instructions* Riaza Brasher MD - 11/18/2023 12:47 PM EST [...] a safe, long-term, and healthy way. A [facility] doctor will help you with dosages [...] Weight Loss Dulaglutide: Patient drug information Access [employer] Online for additional drug information, tools, and databases. Copyright 4276-4031 MyLife. All rights reserved. (For additional information see [...] much, and when it happened. Last Reviewed [id number] Consumer Information Use and Disclaimer This generalized [...] or approved for treating a specific patient. [employer]. and its affiliatesdisclaim any warranty or liability relating to this information or the use thereof. The use of thisinformation is governed by the Terms of Use, available at https://www.Matcha.Apax Solutions/en/solutions/lexicomp/about/[place] documented in this encounterHocking Valley Community Hospital02-07-2024 History of Present illness Narrative* Raiza Barsher MD - 11/18/2023 11:47 AM EST Images from the original note were not included. BMI Obesity Medicine FollowUp Note November 18, 2023 Patient Summary: Leelee Zamora is 28 year old Female who presents for follow-up evaluation of her obesity and related complications to the [facility]. In our previous visits we have outlined [...] well. 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 She lives by herself. She thinks she [...] , sulfa burps on occasion, mainly with Spanish food - reports injection site reactions with [...] disorder) 12/16/2018 Seeing Klaus Gonzalez at the [facility] center. History of chlamydia 16 YO History [...] from bronson weight (192lbs) likely 2/2 DC Mounmalikro, inactivity. She has stable wtaround 200 and 210 [...] which included preparing to see the patient, nnmp-bu-ojkr patient care, completing clinical documentation, performing a medically appropriate examination, counseling and educating the patient/family/caregiver, and ordering medications, tests,or procedures. documented in this encounterHocking Valley Community Hospital01-03-2024 NoteHNO ID: [id number] Author: Christiana Philip AA Service: ? Author Type: Shake Loader Type: Anesthesia Procedure Notes Filed: 10/14/2023 10:00 [...] October 14, 2023 TIME: 10:00 AM CSN: [id number] NoteHNO ID: [id number] Author: Sandhya Guillory RN Service: Nursing Author Type: Registered Nurse Type: Nursing Progress Note Filed: 10/14/2023 9:11 AM Note Text: Other: pt ready for OR, call light in reach, mom called to bedside.[id number] History of Present illness Narrative* Cooper Gastelum APRN.WALKING DRAGLINE OPERATOR - 09/17/2023 3:28 PM EST Chief Complaint [...] - CONSULT TO GENERAL SURGERY Cooper Gastelum APRN.WALKING DRAGLINE OPERATOR documented in this encounterHocking Valley Community Hospital12-07-2023 Miscellaneous Notes* Telephone Encounter - Virgilio [...] could be from her gallbladder? Virgilio Rooney CHIEF LOAD DISPATCHER Let patient know the MRI of her liver shows a benign dilated vein. We do not know what causes thesebut then do not cause any issues and do not need monitored documented in this encounterHocking Valley Community Hospital12-06-2023 History of Present illness Narrative* Yolanda Overton LPN - 09/16/2023 10:58 AM EST Scan on 09/15/2023 8:46 AM by Provider, JOSE Alvarez: MRI documented in this encounterHocking Valley Community Hospital12-04-2023 History of Present illness Narrative* Princess [...] 2023 TIME: 3:47 PM documented in this encounterHocking Valley Community Hospital11-17-2023 Miscellaneous Notes* Telephone Encounter - Virgilio Rooney LPN - 08/28/2023 9:21 AM EST Please see pt's message. Virgilio Rooney LPN documented in this encounterHocking Valley Community Hospital11-13-2023 Miscellaneous Notes* Telephone Encounter - Kiki Dumont [...] MRI of the liver. documented in this encounterHocking Valley Community Hospital11-10-2023 NoteHNO ID: [id number] Author: Suad Hernandez, TECHNOLOGIST Service: ? Author Type: Technologist Type: [...] BY: TECHNOLOGIST Hamida August 21, 2023 3:47 [facility]11-10-2023 History of Present illness Narrative* [...] BY: TECHNOLOGIST Hamida August 21, 2023 3:47 PM documented in this encounterHocking Valley Community Hospital11-06-2023 Instructions* Patient Instructions* Raiza Brasher MD - 08/17/2023 2:28 PM EST [...] Good examples of appsto track calories are [employer], LOSE IT. Some patient have found FOODUCATE [...] like a plant based meal replacement called Healthy Skoop Nutrition - can mix w froz berries and almond milk) Frozen Meals aim for 200-400 calories, 15-30 grams protein, 5+ grams fiber, < 50 grams Carbohydrate, <600 mg sodium Frozen Meals Calories Protein (grams) Carbs Frontera Bowls 240-320 9-23 33-47 Healthy Choice/Power Bowls 180-350 10-25 20-50 Estefania's (V, GF) 280-400 9-20 20-50 Smart Made/Smart Ones 150-320 14-26 16-50 Lean Cuisine 250-410 10-20 15-50 Eating Well 240-360 15-25 25-40 LUVO planted 260-430 10-20 16-55 Other Frozen meals: Kashi, Sweet Earth, Blue Line Hanger Home's Reduced Guilt, EVOLValdo's Delights, Dr. Ferrara's Protein Drinks Calories Protein (grams) Sugars (grams) EAS Advant Edge Carb Control 110 17 1 Isopure Clear Zero Carb 160 40 0 Muscle Milk light 100-160 15-20 0-1 OnMyBlock Power 170 26 5 Orgain Protein Shake* 150 26 2 Premier Protein 160 30 1 Evolve (Vegan)* 160 20 5 Other Protein Shakes: Pure Protein, Ensure High Protein; *Offers plant based, dairy free option Protein Powders Calories (per scoop) Protein (g) Sugars (g) Isopure Zero Carb & Unflavored 105 25 0 Log Rider Whey Protein 100 18 3 Optimum Nutrition [...] at or call local emergency services at 333. What other information should I know? Keep all appointments with your doctor and the laboratory. Do not let anyone else take your medication. Topiramate use needs to be monitored closely. Prescriptions may be refilled only a limited number of times. Keep a written list of all of your prescription and nonprescription (qzxt-pmg-igdmozl) medicines, in addition to vitamins, minerals, or [...] for a missed one. Sources Pubmed Health: http://www.ncbi.nlm.nih.gov/pubmedhealth/ZHO4933718/ Drugs.com http://www.drugs.com/pro/topiramate.html documented in this encounterHocking Valley Community Hospital11-06-2023 History of Present illness Narrative* Raiza Brasher MD - 08/17/2023 2:04 PM EST Images from the original note were not included. BMI Obesity Medicine Note [facility] Visit August 17, 2023 I have communicated my name and active licensure. The patient's identity and physical location wereverified at the time of this visit. Either the patient or their legal food products sales representative has been informed of the risks and benefits of -- and alternatives to -- treatment through a remote evaluation andconsents to proceed with the evaluation remotely. Patient Summary: Leelee Zamora is 28 year old who presents virtually [facility] the [facility] for follow-up evaluation of obesity and related [...] , sulfa burps on occasion, mainly with Spanish food - reports injection site reactions with [...] of Systems and Social History reviewed in [place] I have confirmed and edited as necessary, [...] RD at BMI -- RTC 3mo, FTF Raiza Brasher MD MSc All documentation from previous visit of June 08, 2023 was copied and pasted, documentation has been reviewed and edited as necessary for today's visit. I spent a total of 36 minutes on the date of the service which included preparing to see the patient, vgpe-rj-ufyj patient care, completing clinical documentation, counseling and educating the patient/family/caregiver, and ordering medications, tests, or procedures. documented in this encounterHocking Valley Community Hospital11-03-2023 History of Present illness Narrative* Mireya Shah, - 08/14/2023 1:04 PM EDT COLORECTAL SURGERY VIRTUAL VISIT FOLLOW UP I have communicated my name and active licensure. The patient's identity and physical location wereverified at the time of this visit. Either the patient or their legal food products sales representative has been informed of the [...] a soft regular bowel movements. She has enterprise resource analyst who I will defer to for management of abdominal constipation. Discussed with patient if she has difficulty holding still in, she needs to continue doing Kegel's and follow with pelvic floor physical therapy. She continues to have breast milk despite discontinuation of months ago. We discussed this when she was at an appointment with me in person, she will follow-up with a checker loader to get that evaluated. Mireya Shah DO Pelvic Floor Department of Colorectal Surgery Risk of morbidity, mortality and/or complications of treatment plan: moderate I spent a total of 25 minutes on the date of the service which included completing clinical documentation, counseling and educating the patient/family/caregiver, and care coordination (not separatelyreported). documented in this encounterHocking Valley Community Hospital11-03-2023 Miscellaneous Notes* Telephone Encounter - Russell Ovalle - 08/14/2023 10:14 AM EDT Leelee Zamora [phone], says she was told to call to discuss EUA results. documented in this encounterHocking Valley Community Hospital10-25-2023 History of Present illness Narrative* Leonela [...] 05, 2023 1:20 PM documented in this encounterHocking Valley Community Hospital10-12-2023 History of Present illness Narrative* Kavya Pham Ma - 07/23/2023 3:07 PM EDT Pt was seen in [facility] ER, report attached below. Scan on 07/22/2023 10:48 PM by Provider, External, PAJamalC: Consultation - Emergency Medicine Kavya Pham Ma documented in this encounterHocking Valley Community Hospital09-21-2023 History of Past illness Narrative* Problem Noted Date Diagnosed Date Resolved Date Obesity, Class II, BMI 35-39.9 07/02/2023 07/06/2023 documented as of this encounter (statuses as of 07/27/2023) [facility] History of Past illness Narrative* Problem Noted Date Diagnosed Date Resolved Date Obesity, Class II, BMI 35-39.9 07/02/2023 07/06/2023 documented as of this encounter (statuses as of 07/28/2023) [facility] History of Past illness Narrative* Problem Noted Date Diagnosed Date Resolved Date Obesity, Class II, BMI 35-39.9 07/02/2023 07/06/2023 documented as of this encounter (statuses as of 08/05/2023) [facility] History of Past illness Narrative* Problem Noted Date Diagnosed Date Resolved Date Obesity, Class II, BMI 35-39.9 07/02/2023 07/06/2023 documented as of this encounter (statuses as of 08/06/2023) [facility] History of Past illness Narrative* Problem Noted Date Diagnosed Date Resolved Date Obesity, Class II, BMI 35-39.9 07/02/2023 07/06/2023 documented as of this encounter (statuses as of 08/06/2023) [address]21-2023 History of Past illness Narrative* Problem Noted Date Diagnosed Date Resolved Date Obesity, Class II, BMI 35-39.9 07/02/2023 07/06/2023 documented as of this encounter (statuses as of 08/14/2023) [address]21-2023 History of Past illness Narrative* Problem Noted Date Diagnosed Date Resolved Date Obesity, Class II, BMI 35-39.9 07/02/2023 07/06/2023 documented as of this encounter (statuses as of 08/15/2023) [address]21-2023 History of Past illness Narrative* Problem Noted Date Diagnosed Date Resolved Date Obesity, Class II, BMI 35-39.9 07/02/2023 07/06/2023 documented as of this encounter (statuses as of 08/18/2023) [facility]09-21-2023 History of Past illness Narrative* Problem Noted Date Diagnosed Date Resolved Date Obesity, Class II, BMI 35-39.9 07/02/2023 07/06/2023 documented as of this encounter (statuses as of 08/22/2023) [facility]09-21-2023 History of Past illness Narrative* Problem Noted Date Diagnosed Date Resolved Date Obesity, Class II, BMI 35-39.9 07/02/2023 07/06/2023 documented as of this encounter (statuses as of 08/28/2023) [facility]21-2023 History of Past illness Narrative* Problem Noted Date Diagnosed Date Resolved Date Obesity, Class II, BMI 35-39.9 07/02/2023 07/06/2023 documented as of this encounter (statuses as of 09/02/2023) [address]21-2023 History of Past illness Narrative* Problem Noted Date Diagnosed Date Resolved Date Obesity, Class II, BMI 35-39.9 07/02/2023 07/06/2023 documented as of this encounter (statuses as of 09/16/2023) [address]21-2023 History of Past illness Narrative* Problem Noted Date Diagnosed Date Resolved Date Obesity, Class II, BMI 35-39.9 07/02/2023 07/06/2023 documented as of this encounter (statuses as of 09/17/2023) [address]21-2023 History of Past illness Narrative* Problem Noted Date Diagnosed Date Resolved Date Obesity, Class II, BMI 35-39.9 07/02/2023 07/06/2023 documented as of this encounter (statuses as of 09/18/2023) [address]21-2023 History of Past illness Narrative* Problem Noted Date Diagnosed Date Resolved Date Obesity, Class II, BMI 35-39.9 07/02/2023 07/06/2023 documented as of this encounter (statuses as of 11/08/2023) [address]21-2023 History of Past illness Narrative* Problem Noted Date Diagnosed Date Resolved Date Obesity, Class II, BMI 35-39.9 07/02/2023 07/06/2023 documented as of this encounter (statuses as of 11/13/2023) [address]21-2023 History of Past illness Narrative* Problem Noted Date Diagnosed Date Resolved Date Obesity, Class II, BMI 35-39.9 07/02/2023 07/06/2023 documented as of this encounter (statuses as of 11/19/2023) [address]21-2023 History of Past illness Narrative* Problem Noted Date Diagnosed Date Resolved Date Obesity, Class II, BMI 35-39.9 07/02/2023 07/06/2023 documented as of this encounter (statuses as of 11/24/2023) [facility] History of Past illness Narrative* Problem Noted Date Diagnosed Date Resolved Date Obesity, Class II, BMI 35-39.9 07/02/2023 07/06/2023 documented as of this encounter (statuses as of 11/24/2023) [address]21-2023 History of Past illness Narrative* Problem Noted Date Diagnosed Date Resolved Date Obesity, Class II, BMI 35-39.9 07/02/2023 07/06/2023 documented as of this encounter (statuses as of 11/24/2023) [address]21-2023 History of Past illness Narrative* Problem Noted Date Diagnosed Date Resolved Date Obesity, Class II, BMI 35-39.9 07/02/2023 07/06/2023 documented as of this encounter (statuses as of 11/25/2023) [facility]20[facility] History of Past illness Narrative* Problem Noted Date Diagnosed Date Resolved Date Obesity, Class II, BMI 35-39.9 07/02/2023 07/06/2023 documented as of this encounter (statuses as of 11/27/2023) [facility] History of Past illness Narrative* Problem Noted Date Diagnosed Date Resolved Date Obesity, Class II, BMI 35-39.9 07/02/2023 07/06/2023 documented as of this encounter (statuses as of 11/27/2023) [facility] History of Past illness Narrative* Problem Noted Date Diagnosed Date Resolved Date Obesity, Class II, BMI 35-39.9 07/02/2023 07/06/2023 documented as of this encounter (statuses as of 12/03/2023) [facility] History of Past illness Narrative* Problem Noted Date Diagnosed Date Resolved Date Obesity, Class II, BMI 35-39.9 07/02/2023 07/06/2023 documented as of this encounter (statuses as of 12/06/2023) [facility] History of Past illness Narrative* Problem [...] of this encounter (statuses as of 12/10/2023) [facility] History of Past illness Narrative* Problem [...] of this encounter (statuses as of 12/10/2023) [facility] History of Past illness Narrative* Problem [...] of this encounter (statuses as of 12/27/2023) [facility] History of Past illness Narrative* Problem [...] of this encounter (statuses as of 01/28/2024) [facility]09-14-2023 Miscellaneous Notes* Telephone Encounter - Armando Boyce Cma - 06/25/2023 1:01 PM EDT No answer and VM full- patient active on [employer] message sent Armando Boyce Cma * Telephone Encounter - Cooper Gastelum APRN.CNP - 06/25/2023 11:19 AM EDT Please let patient know her hgb a1c is nornal. documented in this encounterHocking [facility]09-14-2023 Miscellaneous Notes* Telephone Encounter - Armando Boyce Cma - 06/25/2023 11:01 AM EDT Patient notified and verbalized understanding Armando Boyce Cma * Telephone Encounter - Cooper Gastelum APRN.CNP - 06/25/2023 10:53 AM EDT Please let patient know her STI testing is all negative. Discharge is likely secondary to IUD documented in this encounterHocking Valley [facility] Hospital09-12-[facility]23 History of Present illness Narrative* Cooper [...] of popliteal vein of right lower extremity ([facility]) 02/2022 Allergic rhinitis, unspecified 12/16/2018 Chlamydia 16 YO Encounter for insertion of mirena IUD 12/24/2021 Ex-smoker 12/16/2018 Started at age 19 up to 1/2-1 PPD, quit 05/2018 SAMAN (generalized anxiety disorder) 12/16/2018 [facility] History of gastroesophageal reflux (GERD) 12/16/2018 Obesity, Class III, BMI 40-49.9 (morbid obesity) ([facility]) 03/09/2018 Psoriasis 12/16/2018 Vitamin D deficiency 12/16/2018 [...] - UA DIP, URINE (POC) Cooper Gastelum APRN.CNP documented in this encounterHocking Valley [facility]09-12-[facility] History of Present illness Narrative* Marietta Kitchen APRN.CNP - 06/23/2023 8:37 AM EDT Telemedicine Visit - [facility] Virtual Visit Note Patient seen on Zoom. Location of patient: [place] History of Present Illness Leelee Zamora is a 28 year old female who presents with concern about sexually transmitted infection. Patient reports creamy white vaginal discharge and urethral pain. Concern about trichomonas, unsure if exposed. Patient is pleasant, alert, speaking in full sentences, non-toxic appearing. Plan Advised on limitations of [facility] [facility] Online service. Recommend in-person evaluation. Patient is agreeable. Appointment cancelled and fee waived. Marietta Kitchen APRN.CNP documented in this encounterHocking [facility]09-07-2023 Miscellaneous Notes* Telephone Encounter - Maria A Tinsley LPN - 06/18/2023 12:53 PM EDT Provider was able to complete appointment with patient. documented in this encounterHocking Valley [facility]08-29-2023 History of Present illness Narrative* Pj [...] She was initially referred by an outside waist fitter for evaluation for 4th nerve palsy. We discussed that she has no abnormalities apparent on exam of extraocular movements. Additionally she has no symptoms of diplopia, which would be atypical principal symptoms of 4th nerve palsy. As such I am not concerned for 4th nerve palsy. I referred her to a [facility] washing machine installer for further ophthalmologic exam and evaluation. She had [facility] exam at [facility] demonstrating mild exophoria, no findings of CN4 palsy, no other significant findings. Advised hot compress and erythromycin ointment to eyes. Eye and head pain could be secondary to migraine. I will give her rx for sumatriptan for symptomatic treatment of episodes. RTC 3 months. documented in this encounterHocking Valley [facility] Hospital08-28-2023 History of Present illness Narrative* Raiza Brasher MD - 06/08/2023 2:20 PM EDT [...] visit. Either the patient or their legal food products sales representative has been informed of the risks and benefits of -- and alternatives to -- treatment through a remote evaluation andconsents to proceed with the evaluation remotely. Patient Summary: Leelee Zamora is 27 year old who presents virtually to the [facility] for follow-up evaluation of obesity and related [...] , sulfa burps on occasion, mainly with Spanish food -- reports injection site reactions with 10mg, no change with 15mg Diet: Varies. Reports healthy food choices. Eats B. Less hunger at night. Exercise: Daily walking, ?Sleep: Adequate sleep. ??Stress: none Review of Systems and Social History reviewed in [facility] I have confirmed and edited as necessary, [...] with RD at BMI -- RTC 3mo Raiza Brasher MD MSc All documentation from previous visit of December 24, 2022 was copied and pasted, documentation has been reviewed and edited as necessary for today's visit. documented in this encounterHocking Valley [facility]08-09-2023 History of Present illness Narrative* Kiki Dumont MA - 05/20/2023 6:22 PM EDT Scan on 05/18/2023 2:32 PM by Provider, External, PATRICKC: CT Scan Kiki Dumont MA documented in this encounterHocking Valley [facility]08-04-2023 History of Present illness Narrative* Melissa [...] completion of antibiotic, will be seen by PARTS CLERK PLANT MAINTENANCE for std testing and recheck of urine. Patient declined visit or treatment today. Melissa Daniel APRN.CNP documented in this encounterHocking Valley [facility] Hospital08-04-2023 Miscellaneous Notes* Telephone Encounter - Sandra Leung MA - 05/15/2023 3:18 PM EDT Patient notified of results, verbalized understanding of instructions given. Sandra Leung MA * Telephone Encounter - Roverto Ag APRN.CNP - 05/15/2023 3:10 PM EDT No bacterial infection noted on urine culture. May discontinue antibiotics. Follow up with PCP or POT ROOM TAPPER for reevaluation. Roverto Ag APRN.CNP documented in this encounterHocking Valley Community Hospital08-03-2023 History of Present illness Narrative* Maryann Matias PA-C - 05/14/2023 11:35 AM EDT This note was created using [employer]. Subjective Leelee Zamora is a 28 year [...] CULTURE Maryann Matias PA-C documented in this encounterHocking Valley Community Hospital08-03-2023 Miscellaneous Notes* Telephone Encounter - Alessandra oRach RN - 05/14/2023 9:29 AM EDT Opened in error Patient called, did not disclose reason for call. My co workers aren't helping, call me back later documented in this encounterHocking Valley [facility] Hospital08-03-2023 History of Present illness Narrative* Jo Napoles APRN.CNP - 05/14/2023 9:04 AM EDT This is an Express Care eVisit note for Leelee Zamora eVisit/Questionnaire reviewed The chief complaint for the visit - Patient presents with: Dysuria Recommendations/Treatment plan - See My Chart Message to patient Time spent <1 minute Jo Napoles APRN.CNP documented in this encounterHocking Valley [facility] Hospital08-03-2023 History of Present illness Narrative* Nicky [...] minutes Nicky Fonseca APRN.CNP documented in this encounterHocking Valley [facility] Hospital07-29-2023 Miscellaneous Notes* Telephone Encounter - Angela Carlson LPN - 05/09/2023 12:56 PM EDT Patient calling regarding spotting off period, pt concerned her IUD might not be in place. Conferenced to mud engineer [employer] [ ] to speak with provider solutions sales consultant for Dr. Schultz at phone number ([phone]). While on hold pt disconnected the call. Called pt back and again while on hold for firebrick and refractory tile repairer pt disconnected. Angela Carlson LPN documented in this [facility]07-10-2023 Miscellaneous Notes* Telephone Encounter - Maria A Tinsley LPN - 04/20/2023 5:31 PM EDT Request sent to Stephani Morrison CNP. documented in this [facility]07-08-2023 History of Present illness Narrative* Maryann Matias PA-C - 04/18/2023 3:39 PM EDT This note was created using [employer]. Subjective Leelee Zamora is a 27 year [...] of popliteal vein of right lower extremity ([facility]) 02/2022 Allergic rhinitis, unspecified 12/16/2018 Chlamydia 16 YO Encounter for insertion of mirena IUD 12/24/2021 Ex-smoker 12/16/2018 Started at age 19 up to 1/2-1 PPD, quit 05/2018 SAMAN (generalized anxiety disorder) 12/16/2018 [facility]. History of gastroesophageal reflux (GERD) 12/16/2018 Obesity, Class III, BMI 40-49.9 (morbid obesity) ([facility]) 03/09/2018 Psoriasis 12/16/2018 Vitamin D deficiency 12/16/2018 [...] Plan ASSESSMENT/PLAN: 1. Pelvic pain - ICD9: [id number], ICD10: R10.2 -UA positive here for blood and leuks. Will treat with Bactrim. If culture comes back negative would recommend follow-up with urology or PCP. - UA DIP, URINE (POC) - URINE CULTURE Maryann Matias PA-C documented in this encounterHocking Valley Community Hospital06-01-2023 History of Present illness Narrative* Humberto Schultz MD - 03/12/2023 11:23 AM EDT Leelee Zamora is a 27 year old who presents for her annual gynecologic exam. 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 Operator concerns UTI KEFLEX RX 7 DAYS, DAY 3, Cycle every 90 days Flow 5 days Contraception: Mirena IUD Last Pap: History of abnormal pap: History of STDS Last mammogram: History of abnormal mammogram: PAST MEDICAL HISTORY Diagnosis Date Acute deep vein thrombosis (DVT) of popliteal vein of right lower extremity ([facility]) 02/2022 Allergic rhinitis, unspecified 12/16/2018 Chlamydia 16 YO Encounter for insertion of mirena IUD 12/24/2021 Ex-smoker 12/16/2018 Started at age 19 up to 1/2-1 PPD, quit 05/2018 SAMAN (generalized anxiety disorder) 12/16/2018 Seeing Klaus [facility] at [facility]. History of gastroesophageal reflux (GERD) 12/16/2018 Obesity, Class III, BMI 40-49.9 (morbid obesity) ([facility]) 03/09/2018 Psoriasis 12/16/2018 Vitamin D deficiency 12/16/2018 PAST SURGICAL HISTORY Procedure Laterality Date CYST EXCISION 2016 right leg D&C, DIAG AND/OR THERAPEUTIC 2019 EXTRACTION, ERUPTED TOOTH OR EXPOSED ROOT (ELEVATION AND/OR FORCEPS REMOVAL) 2013 LOCAL REVISION OF ILESTOMY 02/24/2022 FAMILY HISTORY [...] external genitalia normal, normal Bartholin's glands, urethra, Leach's glands, no vulvar lesions, no cervical lesions, [...] MD Humberto Barnes MD documented in this encounterHocking Valley [facility]05-30-2023 History of Present illness Narrative* Sriram Fay - 03/10/2023 1:29 PM EDT POPULATION HEALTH NAVIGATION OUTREACH Action/I RP Outreach: Patient Declined GLO consult. Patient Identified by Name and : YES, via MyChart Outreach Outcome/Action Spoke to patient / parent [...] 10, 2023 1:29 PM documented in this encounterHocking Valley [facility] Hospital05-04-2023 History of Present illness Narrative* Ericka Lockett RT(R) - 02/12/2023 3:00 PM EDT Radiology [...] 12, 2023 2:55 PM documented in this encounterHocking Valley Community Hospital05-04-2023 History of Present illness Narrative* Roverto Ag APRN.WALKING DRAGLINE OPERATOR - 02/12/2023 2:36 PM EDT Images from [...] of popliteal vein of right lower extremity ([facility]) 02/2022 Allergic rhinitis, unspecified 12/16/2018 Chlamydia 16 YO Encounter for insertion of mirena IUD 12/24/2021 Ex-smoker 12/16/2018 Started at age 19 up to 1/2-1 PPD, quit 05/2018 SAMAN (generalized anxiety disorder) 12/16/2018 [facility]. History of gastroesophageal reflux (GERD) 12/16/2018 Obesity, Class III, BMI 40-49.9 (morbid obesity) ([facility]) 03/09/2018 Psoriasis 12/16/2018 Vitamin D deficiency 12/16/2018 [...] of care. This note was generated using [employer] software. It may contain errors in wording, punctuation, or spelling. Roverto Ag APRN.CNP documented in this encounterHocking Valley [facility] Hospital05-03-2023 History of Present illness Narrative* Marietta [...] on e-Visit: 8 minutes documented in this encounterHocking Valley Community Hospital05-03-2023 Miscellaneous Notes* Telephone Encounter - Jazmin Thompson Ma - 02/11/2023 8:41 AM EDT Patient was called and offered to schedule appointment with electrical maintenance man viral office and declined refusesto be seen in [place]. Aware no treatment unless seen Jazmin Thompson Ma documented in this encounterHocking Valley [facility] Hospital03-30-2023 Miscellaneous Notes* Telephone Encounter - Flor Cole - 01/08/2023 1:59 PM EDT Please fax rx to: [facility] F: [phone] Phone: [phone] documented in this encounterHocking Valley Community Hospital03-15-2023 Miscellaneous Notes* Telephone Encounter - Roverto Diane MD - 12/24/2022 7:33 PM EDT Patient left without being seen. Patient without Hx of asthma. Script denied. * Telephone Encounter - Teresa Bynum LPN - 12/24/2022 4:27 PM EDT Please discuss refill below with provider. Pt has an apt tonight. Teresa Bynum LPN Patient has been identified by [...] you. Teresa Bynum LPN documented in this encounterCleveland [id number] History of Present illness Narrative* Christofer Braswell [...] loss efforts. Christofer Braswell RD, LD * Raiza Brasher MD - 12/24/2022 2:35 PM EDT Images from the original note were not included. BMI Obesity Medicine Pharmacotherapy [facility] Visit December 24, 2022 2:35 PM Virtual Visit (Audio/Visual)I have discussed the nature of this visit with the patient which will occur via [facility] (Phone, Virtual Visit) and she agrees to proceed with this interaction. Patient Summary: Leelee Zamora is 27 year old who [facility] for follow-up evaluation of obesity and related [...] , sulfa burps on occasion, mainly with Spanish food -- reports injection site reactions with [...] return to clinic/virtually in 1-3 months pending [place] state law Raiza Brasher MD MSc Medical Decision Making: Problems: Moderate: 2+ stable chronic illnesses Data: Unique test(s) ordered: 1 Risk: Moderate: Drug management Medical Decision Making Level: 4 - Moderate documented in this encounterHocking Valley Community Hospital03-15-2023 Instructions* Patient Instructions* Raiza Brasher MD - 12/24/2022 2:42 PM EDT Thank you again for participating in this virtual shared medical appt (SMA) If interested, please followup to schedule another SMA with Dr. Brasher. If not, please schedule an individual appt as discussed Continue on phentermine and Mounjaro as discussed documented in this encounterHocking Valley Community Hospital03-15-2023 Nurse Note* Maria A Tinsley MA [...] she is drinking. Patient isn't seeing a child nutrition director. This is patient's 3rd refill. Maria A Tinsley MA documented in this encounterHocking Valley [facility] Hospital03-10-2023 History of Present illness Narrative* Ngoc [...] 19, 2022 4:06 PM documented in this encounterHocking Valley Community Hospital03-08-2023 Instructions* Patient Instructions* Parker Bergeron MD - 12/17/2022 2:05 PM EST Images from the original note were not included. documented in this encounterHocking Valley Community Hospital03-08-2023 History of Present illness Narrative* Parker [...] 17, 2022 1:59 PM documented in this encounterHocking Valley Community Hospital03-01-2023 History of Present illness Narrative* Maryann Matias PA-C - 12/10/2022 1:40 PM EST This note was created using NoteWriter. Subjective [...] of popliteal vein of right lower extremity ([facility]) 02/2022 Allergic rhinitis, unspecified 12/16/2018 Chlamydia 16 YO Encounter for insertion of mirena IUD 12/24/2021 Ex-smoker 12/16/2018 Started at age 19 up to 1/2-1 PPD, quit 05/2018 SAMAN (generalized anxiety disorder) 12/16/2018 Seeing Klaus Gonzalez at the [facility]. History of gastroesophageal reflux (GERD) 12/16/2018 Obesity, Class III, BMI 40-49.9 (morbid obesity) ([facility]) 03/09/2018 Psoriasis 12/16/2018 Vitamin D deficiency 12/16/2018 [...] REMOVAL) 2013 LOCAL REVISION OF ILESTOMY 02/24/2022 FAMILY HISTORY [...] FRONTAL/LAT Maryann Matias PA-C documented in this encounterHocking Valley Community Hospital03-01-2023 Instructions* Patient Instructions* Maryann Matias PA-C [...] vomiting, or unusual drowsiness. documented in this encounterHocking Valley Community Hospital02-24-2023 Instructions* Patient Instructions* Pj James MD - 12/05/2022 9:55 AM EST See the washing machine installer Send me a message after you have seen them, I will review their note and decide if any further testing is needed. documented in this encounterHocking Valley Community Hospital02-24-2023 History of Present illness Narrative* Pj James MD - 12/05/2022 9:30 AM EST HPI: This is Ms. Leelee Zamora a 27 year old female from who [facility] with a chief complaint [...] eye vision Not seeing double. Seen by store host doctor in [place]. Not sure if they are opthometrist or opthalmologist. Pdmp 310 Phentermine current Oxycodone recurrent, not currently taking PMH: PAST MEDICAL HISTORY PAST MEDICAL HISTORY Diagnosis Date Acute deep vein thrombosis (DVT) of popliteal vein of right lower extremity ([facility]) 02/2022 Allergic rhinitis, unspecified 12/16/2018 Chlamydia 16 YO Encounter for insertion of mirena IUD 12/24/2021 Ex-smoker 12/16/2018 Started at age 19 up to 1/2-1 PPD, quit 05/2018 SAMAN (generalized anxiety disorder) 12/16/2018 [facility]. History of gastroesophageal reflux (GERD) 12/16/2018 Obesity, Class III, BMI 40-49.9 (morbid obesity) ([facility]) 03/09/2018 Psoriasis 12/16/2018 Vitamin D deficiency 12/16/2018 [...] Thyroid Function tests in . Thyroid, 2019:29:3:412-420.Yo Campos, et al. 2017 Guidelines of the [place] [employer] for the Diagnosis and Management of Thyroid Disease during and the . Thyroid, 2017:27:3:315-389. Free T4 Date Value Ref Range Status 12/16/2018 1.2 0.9 - 1.7 ng/dL Final Hemoglobin A1C Date Value Ref Range Status 09/10/2022 5.1 4.3 - 5.6 % Final Comment: [place] [employer] guidelines indicate that patients with [...] diplopia. She was referred by an outside waist fitter for evaluation for 4th nerve palsy. We [...] As such I referred her to a [facility] washing machine installer for further ophthalmologic exam and evaluation. She [...] for any future neuroimaging. documented in this encounterHocking Valley Community Hospital02-23-2023 History of Present illness Narrative* Shilpa [...] retention. The above surgeries were done at [facility] and . She now presents with [...] of popliteal vein of right lower extremity ([facility]) 02/2022 Allergic rhinitis, unspecified 12/16/2018 Chlamydia 16 YO Encounter for insertion of mirena IUD 12/24/2021 Ex-smoker 12/16/2018 Started at age 19 up to 1/2-1 PPD, quit 05/2018 SAMAN (generalized anxiety disorder) 12/16/2018 [facility]. History of gastroesophageal reflux (GERD) 12/16/2018 Obesity, Class III, BMI 40-49.9 (morbid obesity) [facility] [facility] 03/09/2018 Psoriasis 12/16/2018 Vitamin D deficiency 12/16/2018 [...] entered by the nurse and reviewed by me Nursing Notes: Lesley Alberto LPN 12/02/2022 2:00 [...] studies/radiological imaging/medical records from other medical facilities, kyss-ze-vdze patient care, obtaining oral medical history from the patient in thisdoctors' hospitalounter, performing a medically appropriate examination, counseling and educating the patient/family/caregiver, and ordering and/or scheduling of medications/tests/procedures, and completing appropriate medical documentation. Shilpa Winters MD documented in this encounterHocking Valley [facility]02-21-2023 Nurse Note* Lesley Alberto LPN - 12/02/2022 1:59 PM EST REVIEW OF [...] n/a Lesley Alberto LPN documented in this encounterHocking Valley Community Hospital02-20-2023 Instructions* Patient Instructions* Cooper Gastelum APRN.YADI - 12/01/2022 2:28 PM EST Schedule with General surgery documented in this encounterHocking Valley Community Hospital02-20-2023 History of Present illness Narrative* Cooper Gastelum, CHUTE BUILDER.WALKING DRAGLINE OPERATOR - 12/01/2022 2:22 PM EST Chief Complaint [...] to area. Patient sees a surgeon in [place] but is requesting a second opinion from Dr. Pappas and needs a referral. Past medical history, appointments, medications, allergies reviewed. Previous Medical History PAST MEDICAL HISTORY Diagnosis Date Acute deep vein thrombosis (DVT) of popliteal vein of right lower extremity ([facility]) 02/2022 Allergic rhinitis, unspecified 12/16/2018 Chlamydia 16 YO Encounter for insertion of mirena IUD 12/24/2021 Ex-smoker 12/16/2018 Started at age 19 up to 1/2-1 PPD, quit 05/2018 SAMAN (generalized anxiety disorder) 12/16/2018 [facility]. History of gastroesophageal reflux (GERD) 12/16/2018 Obesity, Class III, BMI 40-49.9 (morbid obesity) ([facility]) 03/09/2018 Psoriasis 12/16/2018 Vitamin D deficiency 12/16/2018 Previous Surgical History PAST SURGICAL HISTORY Procedure Laterality Date CYST EXCISION 2016 right leg D&C, DIAG AND/OR THERAPEUTIC 2019 EXTRACTION, ERUPTED TOOTH OR EXPOSED ROOT (ELEVATION AND/OR FORCEPS REMOVAL) 2013 LOCAL REVISION OF ILESTOMY 02/24/2022 Family History [...] - CONSULT TO GENERAL SURGERY Cooper Gastelum APRN.WALKING DRAGLINE OPERATOR documented in this encounterHocking Valley Community Hospital01-26-2023 History of Present illness Narrative* Humberto Schultz MD - 11/06/2022 1:48 PM EST Leelee Zamora is a 27 year old female who presents for a consult regarding diagnosis of PCOS. BMI 44 Last visit issues: COLO-VAGINAL FISTULA PRESENT. PLAN TO SEE [facility] DARRYL S[facility]ENT [facility]. TODAY. ILEOSTOMY REVERSED FEBRUARY 2022. IUD [...] of popliteal vein of right lower extremity ([facility]) 02/2022 Allergic rhinitis, unspecified 12/16/2018 Chlamydia 16 YO Encounter for insertion of mirena IUD 12/24/2021 Ex-smoker 12/16/2018 Started at age 19 up to 1/2-1 PPD, quit 05/2018 SAMAN (generalized anxiety disorder) 12/16/2018 Seeing [facility]. History of gastroesophageal reflux (GERD) 12/16/2018 Obesity, Class III, BMI 40-49.9 (morbid obesity) ([facility]) 03/09/2018 Psoriasis 12/16/2018 Vitamin D deficiency 12/16/2018 [...] 4) Humberto Schultz MD documented in this encounterHocking Valley Community Hospital01-18-2023 Instructions* Patient Instructions* Raiza Brasher MD - 10/29/2022 4:23 PM EST [...] Good examples of appsto track calories are MyFITZounds Hearing AidsPAL, LOSE IT. Some patient have found FOODUCATE [...] like a plant based meal replacement called [employer] SkooGreen Biofactory Nutrition - can mix w froz berries and almond milk) Frozen Meals aim for 200-400 calories, 15-30 grams protein, 5+ grams fiber, < 50 grams Carbohydrate, <600 mg sodium Frozen Meals Calories Protein (grams) Carbs Frontera Bowls 240-320 9-23 33-47 Healthy Choice/Power Bowls 180-350 10-25 20-50 Estefania's (V, GF) 280-400 9-20 20-50 Smart Made/Smart Ones 150-320 14-26 16-50 Lean Cuisine 250-410 10-20 15-50 Eating Well 240-360 15-25 25-40 LUVO planted 260-430 10-20 16-55 Other Frozen meals: Kashi, Sweet Earth, Blue Line H[employer] Home's Reduced Guilt, Valdo BOOGIE's Delights, Dr. Ferrara's Protein Drinks Calories Protein (grams) Sugars (grams) EAS Advant Edge Carb Control 110 17 1 Isopure Clear Zero Carb 160 40 0 Muscle Milk light 100-160 15-20 0-1 Xconomy Core Power 170 26 5 Orgain Protein Shake* 150 26 2 Premier Protein 160 30 1 Evolve (Vegan)* 160 20 5 Other Protein Shakes: Pure Protein, Ensure High Protein; *Offers plant based, dairy free option Protein Powders Calories (per scoop) Protein (g) Sugars (g) Isopure Zero Carb & Unflavored 105 25 0 Log Rider Whey Protein 100 18 3 Optimum Nutrition [...] 2 Think Thin (GF) 230 20 0-1 Prestondell Giron Paleo (GF) 180-190 20 2 Oh Yeah [...] continue this medication, under the guidance of [place] state law (see below). -- Please monitor [...] IMPORTANT FOR YOUR WEIGHT LOSS PLAN Per [place] state rules, only one month supply of [...] aware of the following statements per the [facility] pharmacy board rules. 1. Timely refills are required 2. Monthly ( Every 4 weeks) redc-dv-vzuq office visits are required 3. ALL prescriptions [...] Phentermine was approved by the FDA in 1958 for short term weight loss. It works [...] at or call local emergency services at 142. What other information should I know? Keep all appointments with your doctor and the laboratory. Do not let anyone else take your medication. Phentermine is a controlled substance. It is FDA approved for up to 3 months. Prescriptions may be refilled only a limited number of times. Keep a written list of all of your prescription and nonprescription (ojmk-qcx-eedcxur) medicines, in addition to vitamins, minerals, or [...] make up for a missed one. Sources [facility] Consumer Medication Info: http://www.ncbi.nlm.nih.gov/pubmedhealth/HFU8166039/ AMA patient handouts: http://www.amaassn.org/ama1/pub/upload/mm/433/phrxsurgery.pdf Drugs.com: http://www.drugs.com/pro/phentermine.html documented in this encounterHocking Valley Community Hospital01-18-2023 History of Present illness Narrative* Raiza Brasher MD - 10/29/2022 3:50 PM EST [...] , sulfa burps on occasion, mainly with Spanish food Diet: Trying to cut back on [...] (Bmi) of 45.0 to 49.9 in Adult ([facility]) Vitamin D Deficiency Saman (Generalized Anxiety Disorder) History of Gastroesophageal Reflux (Gerd) Allergic Rhinitis, Unspecified Ex-Smoker Psoriasis Encounter for Insertion of Mirena IUD Acute Deep Vein Thrombosis (Dvt) of Popliteal Vein of Right Lower Extremity ([facility]) History of Pulmonary Embolism PAST SURGICAL [...] necessary for today's visit. documented in this encounterHocking Valley Community Hospital12-21-2022 Hospital Discharge instructions Patient Education 10/01/2022 16:53:58 [facility] Discharge Instructions Template (07/2018) (CUSTOM) DONTA SAME [...] us better serve our patients. Form: 1522 [id number]) R: 01/1810/01/2022 16:53:02 Laparoscopic Inguinal Hernia Repair, [...] and water are not available, use hand splash line operator. ?Change your dressing as told by your [...] be allowed to take sponge baths. Take hfxn-nlr-hxjuwbd and prescription medicines only as told by your health care provider. To prevent or treat constipation while you are taking prescription pain medicine, your health care provider may recommend that you: ?Drink enough fluid to keep your urine pale yellow. ?Take tvfj-dyk-aaypmtl or prescription medicines. ?Eat foods that are [...] 01/07/2018 Document Revised: 03/07/2020 Document Reviewed: 01/07/2018 ElseSiege Paintball Patient Education 2020 [employer]. 10/01/2022 16:52:40 8- Post Op General Surgery [...] any narcotic pain medication. You may take gjel-pgw-hqmhdqi pain medication if you no longer need your prescribed pain medication. Xaad-eff-blszzls pain medications are Tylenol or Advil/Motrin (ibuprofen). Do not take Tylenol if you are still taking [place] or Percocet. They are the same type [...] the sides and are almost falling off. Kaden or sutures are generally removed within seven [...] 09/18/2022 14:17:55 With:LISA HUMPHREY DO, Surgery Address: [address] [place] [address] [phone] When: Unknown Comments:In 2 weeks [facility] 12-21-2022 Summary of episode note Discharge Instructions Thank you for allowing [place] to assist you with your healthcare needs. The following is importantdischarge information regarding your hospital visit. Your Care Team DAY VELAZQUEZ MD Your Diagnosis Post-op pain What to do next Follow Up Appointments Follow Up with LISA HUMPHREY DO, Surgery When Why: In 2 weeks Where: [address] [facility] [place] [address] [place] [address] [phone] The Following Activity and Diet Have Been [...] ok to take 1-2 pills Pickup at [facility]/pharmacy #[id number] Unchanged levonorgestrel (Mirena 52 mg intrauterine device) [...] Every week rotate injection sites Pharmacy Information [facility]/pharmacy #[id number]: [address] [place], [place] [phone] Please take this list to your next [...] us better serve our patients. Form: 1522 (39194) R: 01/18 Laparoscopic Inguinal Hernia Repair, Adult, [...] and water are not available, use hand splash line operator. ? Change your dressing as told by [...] be allowed to take sponge baths. Take zejl-xqy-wclngdi and prescription medicines only as told by your health care provider. To prevent or treat constipation while you are taking prescription pain medicine, your health care provider may recommend that you: ? Drink enough fluid to keep your urine pale yellow. ? Take xwpr-kds-bhtrulo or prescription medicines. ? Eat foods that [...] 01/07/2018 Document Revised: 03/07/2020 Document Reviewed: 01/07/2018 [employer]ge [employer]ball Patient Education 2020 [employer] What to Do After Your General [...] any narcotic pain medication. You may take iyvc-lmk-wogwurb pain medication if you no longer need your prescribed pain medication. Dfru-zjb-jrmlstt pain medications are Tylenol or Advil/Motrin (ibuprofen). Do not take Tylenol if you are still taking [place] or Percocet. They are the same type [...] the sides and are almost falling off. Kaden or sutures are generally removed within seven [...] to receive it can visit one of [facility] vaccine clinics. There are many vaccine clinic locations within the State. For locations and available times, please visit [email or web address]/. It is important to note that some COVID mobile vaccine clinics are held outdoors and may be canceled in rainy or stormy conditions. To learn more about pediatric vaccinations (ages 5-11), we invite you to visit the [facility] webpage. https://www.[facility].org/pages/5605-Yuwme-Rxbksgzslsd-Wuackgvgzb-Sdziu-Rci stions.htmlTo learn more about the COVID-19 vaccine, we invite you to visit the [employer] website for a list of frequently asked questions. https://Hornet Networks/assets/Lfbskmfg-coc-Krlrigen/qcifj-Zytzasi-Fhklmodtkx _Asked-Questions.pdf [place] [facility] Patient Portal Access Instructions: Stay connected with your healthcare team and access your personal medical information anytime with the [facility] Patient Portal.If you would like a full copy of your medical records, please contact the [facility] Medical Records Department, Thursday through Thursday between 8a.m. and 4:30p.m. Please follow the directions below to access the portal: 1.Access the email account you provided upon registration to the hospital.2.Look for an invitation email from [facility].3.Open the email and access the invitation link: Accept Invitation to [facility]4.Fill in the required rosales to create your account. Sign into www.Hornet [employer] with your username and password that you [...] you will allow to register on the [facility] Patient Portal for access to your information. You can also access the [facility] Patient Portal on the RECCY jessica. Simply click on Health Records under [place] and then click on the [facility] logo. HOW TO SAFELY DISPOSE OF PRESCRIPTION [...] Call your local pharmacy or go to http://[email or web address] [email or web address] to find one close to you.3.Make use of household items: Use cat litter or old coffee grounds to dispose medications if other options arenot available. Mix your drugs with these household products, seal them in an airtight container andthrow it into the garbage. Call [facility]: [phone] to be sure your drugs can be [...] been reviewed and explained to me and INOAH ASHLEY N understand my current condition and have read and understand these discharge instructions. I have received a written copy of the plan/instructions. If I have questions, I am aware that I should contact my doctor. Patient/Director Semiconductor Signature: Date/Time: Relationship to Patient: Witness Name/Signature: Date/Time: [facility] [id number] Anesthesiology Consult note Patient: LEELEE ZAMORA Age: [...] NORMAN MD on 10/01/2022 04:19 PM [facility] [id number] Anesthesiology Consult note Patient: LEELEE ZAMORA Age: [...] Problem list: Medical Anxiety / SNOMED CT 18251474 / Confirmed Blood clot / SNOMED CT 709614716 / Confirmed History of reversal of ileostomy / SNOMED CT 0576407692 / Confirmed IUD contraception / SNOMED CT 3558419546 / Confirmed Obesity / SNOMED CT 0908701260 / Confirmed PCOS (polycystic ovarian syndrome) / SNOMED CT 945237743 / Confirmed, Active Problems (21) Acid reflux Anemia Anxiety Blood clot Contact lenses COVID-19 Fecal incontinence Glasses History of reversal of ileostomy Incisional hernia IUD contraception Obesity Ostomy nurse consultation PCOS (polycystic ovarian syndrome) Psoriasis PTSD (post-traumatic stress disorder) Scoliosis Seasonal allergy Skin tag Social anxiety disorder Umbilical hernia Histories Past Medical History: Active PCOS (polycystic ovarian syndrome) (192632016) Resolved Rectovaginal fistula (046700391): Resolved. Ileostomy status (668161029): Resolved. Family History: Hypertension Mother Stroke Grandparent Diabetes Grandparent Father Colon cancer Grandparent Procedure history: Sphincteroplasty, anal, for incontinence, adult; muscle transplant (21942) in the month of 07/2022 at 27 Years. Comments: 09/16/2022 10:56 Stephani Blackman LPN, Dr EXAMINATION UNDER ANESTHESIA, EXPLORATORY LAPAROTOMY (MINI LAPAROTOMY), ILEOSTOMY REVERSAL, PARTIALSMALL BOWEL RESECTION - [facility] ([id number]) on 02/10/2022 at 26 Years. Exploratory laparotomy (581488077) on 08/31/2021 at 26 Years. Loop ileostomy (095784622) on 08/31/2021 at 26 Years. Perineorrhaphy (272808714) on 08/26/2021 at 26 Years. Dilation and curettage-2020 (58249422) in 2020 at 25 Years. 4th Degree Laceration Repair (62497716). Extraction of wisdom tooth (308663313). Fourth degree perineal laceration for wound Dehiscence-05/16/21 (5060837928). Barium enema (251230987). Social History Social & Psychosocial Habits Alcohol [...] Last Charted Resp Rate 16 br/min (OCT 01:) LRP152 mmHg (OCT 01:) DBP82 mmHg (OCT 01) Measurements from flowsheet : Measurements 10/01/2022 9:25 EST Height 162.6 cm Height in inches 64 inch(es) Admission Weight 115.4 kg Weight Lbs 253.9 lb Weight Method Actual [place] Body Weight 54.74 kg Type of Scale [...] None Safety Brochure Information Reviewed Yes Donta Huber Video Viewed No Barriers to Learning None [...] Weight Lbs 253.9 lb Weight Method Actual [place] Body Weight 54.74 kg Type of Scale [...] ethnicity Skin Integrity Intact Mucous Membrane Color [employer] Skin Moisture General Dry IV Present Present [...] Demonstration, Explanation, Printed materials Preferred Written Language Italian Family/Caregiver Prefer Written Language Italian Preferred Spoken Language Italian Family/Caregiver Prefer Spoken Language Italian General Infection Prevention Strategies Hand hygiene Surgical Site Infection Prevention SSI FAQ provided, Hand hygiene Infection Prevention Teaching Evaluation Verbalizes/Nonverbally indicates understanding Pre Procedure/Surgery Education Appropriate expectations, Bring glasses, hearing aids, contact lenscase, Date/Time of procedure/surgery, Hospital gown requirement worn to OR, Leave valuables, jewelry, wedding ring at home, Meds to take or hold, NPO, Responsible rickshaw driver for discharge, Surgical skin prep Procedure/Surgical Teaching [...] Note-Nursing Date\Time Correction . Assessment and Plan [place] Society of Anesthesiologists (ASA) physical status classification: [...] NORMAN MD on 10/01/2022 10:37 AM [facility] [id number] Instructions* Patient Instructions* Raiza Brasher MD - 09/29/2022 1:08 PM EST [...] at or call local emergency services at 966. What other information should I know? Keep all appointments with your doctor and the laboratory. Do not let anyone else take your medication. Topiramate use needs to be monitored closely. Prescriptions may be refilled only a limited number of times. Keep a written list of all of your prescription and nonprescription (pjhs-ryx-tkfeker) medicines, in addition to vitamins, minerals, or [...] for a missed one. Sources Pubmed Health: http://www.ncbi.nlm.nih.gov/pubmedhealth/QXR9639620/ Drugs.com http://www.drugs.com/pro/topiramate.html documented in this encounterHocking Valley Community Hospital12-19-2022 History of Present illness Narrative* Raiza Brasher MD - 09/29/2022 12:12 PM EST Images from the original note were not included. BMI Obesity Medicine Note Distance Health Visit September 29, 2022 Virtual Visit (Audio/Visual)I have discussed the nature of this visit with the patient which will occur via [facility] (Phone, Virtual Visit) and she agrees [...] , sulfa burps on occasion, mainly with Spanish food Diet: Trying to cut back on [...] History of Pulmonary Embolism No history of PR, COPD, asthma, peptic ulcer dx, hyperlipidemia, gallstones, [...] which included preparing to see the patient, rgne-op-zuiu patient care, completing clinical documentation, counseling and educating the patient/family/caregiver, and ordering medications, tests, or procedures. documented in this encounterHocking Valley Community Hospital12-01-2022 Miscellaneous Notes* Telephone Encounter - Indira Novak RN - 09/11/2022 8:50 AM EST Patient returned call and given provider's message below. Pt will await any further advise regarding POT ROOM TAPPER. Claudia Novak RN * Telephone Encounter - Armando Boyce Cma - 09/11/2022 8:26 AM EST Left message for patient to return call to office Armando Boyce Cma * Telephone Encounter - Cooper Gastelum APRN.WALKING DRAGLINE OPERATOR - 09/11/2022 8:05 AM EST Please let patient know that her hemoglobin a1c and CMP are normal. I am awaiting a return message from her POT ROOM TAPPER and will see her at our follow up appointment. documented in this encounterHocking Valley Community Hospital11-29-2022 Instructions* Patient Instructions* Cooper Gastelum APRN.CNP [...] foods from the protein group each week. [place] with main dishes made with beans or peas, nuts, soy and seafood. Eat seafood in place of meat or poultry twice a week. Include some fish that are higher in oils andlow in mercury, such as salmon, trout and cummings. Milk (8 grams), yogurt (12 grams) and Upper Sorbian yogurt (18 grams) contain protein. Choose lean [...] and sodium Make these occasional treats only. [place] Instant Breakfast, mixed with milk, contains 13 grams of protein a serving. documented in this encounterHocking Valley Community Hospital11-29-2022 History of Present illness Narrative* Cooper Gastelum APRN.YADI - 09/09/2022 3:01 PM EST Chief Complaint [...] Obesity, Class III, BMI 40-49.9 (morbid obesity) ([facility]) 03/09/2018 Psoriasis 12/16/2018 Vitamin D deficiency 12/16/2018 [...] THERAPY - COMP METABOLIC PANEL Cooper Gastelum APRN.YADI documented in this encounterHocking Valley Community Hospital10-11-2022 NoteAdditional Instructions: Handouts Given: Topic 1anesthesia education Topic 2medication education Topic 3surgical site infection education Electronic Signatures: Sandhya Mariee (RN) (Signed 22-Jul-2022 15:36) Authored: Additional Instructions Last Updated: 22-Jul-2022 15:36 by Sandhya Mariee (RN)[facility] 07-22-2022 NotePost Operative Note: PreOp Diagnosis: Rectocele Post-Procedure Diagnosis: Rectocele Procedure: 1. Exam under anesthesia 2. Posterior repair 3. Perineoplasty Surgeon: Dr. Darryl Rodriguez Resident/Fellow/Other Mixed Crop Farmer: Dr. Kanwal Evans Anesthesia: General Estimated Blood [...] case. Kanwal Evans MD, GEORGE, BSN PGY-3, POT ROOM TAPPER Attestation: Note Completion: I am a:Resident/Fellow Attending AttestationI was present for the entire procedure Electronic Signatures: Kanwal Evans (Resident)) (Signed 22-Jul-2022 14:10) Authored: Post Operative Note, Note Completion Darryl Rodriguez) (Signed 22-Jul-2022 15:02) Authored: Post Operative Note, Note Completion Co-Signer: Post Operative Note, Note Completion Last Updated: 22-Jul-2022 15:02 by Darryl Rodriguez)[facility] 07-22-2022 NoteHistory of Present Illness: /Lactating: Are [...] failed she saw Dr. Yemi Baez in [place] and had a revision 7 days after delivery. Unfortunately she has continued to have stool in the vagina ended up with an abscess and C. difficile. She later had a second revision with Dr. Velazquez at [place] which also failed per the patient and she had a ileostomy done in order to give her a break. She had that for about 6 months and was reversed February 10 after methylene dye test was negative. However she still feels symptoms of discharge and stool through the vagina and gas. 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 PMH: none PSH: perineal laceration revision , 2020 rectovaginal fistula repair, divertin ileostomy, February [...] the note. I personally evaluated the patient [id number] Electronic Signatures: Kanwal Evans (Resident)) (Signed 21-Jul-2022 18:41) Authored: History of Present Illness, Allergies, Home Medication Review, Impression/Procedure, ERAS, Review of Systems, Physical Exam, Consent, Note Completion Darryl Rodriguez) (Signed 22-Jul-2022 06:52) Authored: Note Completion Co-Signer: Note Completion Last Updated: 22-Jul-2022 06:52 by Darryl Rodriguez)[facility] 07-07-2022 History of Present illness Narrative* Myesha Loco MD - 07/07/2022 7:33 AM EDT Sent prescription for 5 mg Mounjaro as patient is almost done with her 2.5 mg. documented in this encounterHocking Valley Community Hospital09-21-2022 History of Present illness Narrative* Sandhya Aguilar APRN.WALKING DRAGLINE OPERATOR - 07/02/2022 12:10 PM EDT This note was created using NoteWriter. Subjective Leelee Zamora is a 27 year old female. 27 year old female with PMH GERD, DVT, SAMAN and psoriasis presents for allergic reaction. 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 +red raised and itchy rash. Onset Thursday [...] is provided by the patient. No language translator was used. Rash This is a new [...] Pepcid In further talking , it appears leora are the offender She has no red flags presently Hemodynamically stable Well appearing She will stop eating cashews Instructed to stop Benadryl and can use Vistaril She has requested an Epi pen and one has been provided. Follow up with PCP Sandhya Aguilar APRN.CNP documented in this encounterHocking Valley Community Hospital09-21-2022 Instructions* Patient Instructions* Sandhya Aguilar APRN.CNP - 07/02/2022 12:04 PM EDT Stop Cashsunny ACUTE ALLERGIC REACTION: Your exam shows you [...] or if you faint. documented in this [facility] Instructions* Patient Instructions* Roverto Ag APRN.CNP - 06/23/2022 3:30 PM EDT [facility] [...] sprays and irrigation kits can be purchased jicj-mov-evdiipu. Saline mixes can also be purchased or [...] upon your individual situation. documented in this encounterHocking [facility]09-12-[facility]22 History of Present illness Narrative* Roverto Ag APRN.YADI - 06/23/2022 3:18 PM EDT Subjective HPI [...] of popliteal vein of right lower extremity ([facility]) 02/2022 Allergic rhinitis, unspecified 12/16/2018 Chlamydia 16 YO Encounter for insertion of mirena IUD 12/24/2021 Ex-smoker 12/16/2018 Started at age 19 up to 1/2-1 PPD, quit 05/2018 SAMAN (generalized anxiety disorder) 12/16/2018 [facility] Kl[facility]. History of gastroesophageal reflux (GERD) 12/16/2018 Obesity, Class III, BMI 40-49.9 (morbid obesity) ([facility]) 03/09/2018 Psoriasis 12/16/2018 Vitamin D deficiency 12/16/2018 [...] of care. This note was generated using Evcarco software. It may containerrors in wording, punctuation, or spelling. Roverto Ag APRN.YADI documented in this encounterHocking [facility]09-07-[facility]22 Instructions* Patient Instructions* Myesha Loco MD - 06/18/2022 11:08 AM EDT Images from the original note were not included. MOUNJARO Complete questionnaire prior to your next visit. Please message us on week 3 of your medication so we can send a new prescription if tolerating it well. Savings Card: https://www.[email or web address]/savings-resources Link to Liner Machine Operator Helper Website Gleam Medication Guide: https://pi.Patentspin.Apax Solutions/us/krvvivid-ky-ws.pdf?s=mg How to Use Pen: https://uspl.Takeacoder/mounjaro/mounjaro.html#ug0 Tirzepatide: Patient drug information What is Mounjaro? [...] SUMMARY WITH WARNINGS Important Facts About Mounjaro (ygnb-YAFY-TV). It is also known as tirzepatide. Mounjaro [...] effects. You can report side effects at 4-808-HSU-6820 or www.fda.gov/medwatch. Before using Your healthcare provider [...] you take any other prescription medicines or ajne-czb-nqhutab drugs, vitamins, or herbal supplements? How to [...] promptly. Learn more For more information, call 0-899-JcnnzPd ( ) or go to www.[employer]. This information does not take the place of talking with your healthcare provider. Be sure to talk to your healthcare provider about Mounjaro and how to take it. Your healthcare provider is the best person to help you decide if Mounjaro is right for you. Mounjaro and its delivery device base are trademarks owned or licensed by [employer], its subsidiaries, or affiliates. COLT PANG CBS FEBRUARY2022 Access [employer] Online for additional drug information, tools, and databases. Copyright MyLife. All rights reserved. Contributor Disclosures (For additional [...] much, and when it happened. Last Reviewed [id number] Consumer Information Use and Disclaimer This generalized [...] or approved for treating a specific patient. [employer] and its affiliatesdisclaim any warranty or liability relating to this information or the use thereof. The use of thisinformation is governed by the Terms of Use, available at https://www.Ocscer.com/en/know/sfpescok-dwbzzqerkelwu-xqrhs. documented in this encounterHocking Valley [facility] Hospital09-07-2022 History of Present illness Narrative* Raiza Brasher MD - 06/18/2022 10:21 AM EDT [...] female with obesity who [facility] for an initial evaluation of her obesity [...] unhealthy snacking, excessive cravings, and evening snacking. 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 Nichelle program: [facility] WHAT TO EXPECT [...] intervention is the best and most appropriate extermination supervisor therapeutic option.Discussed in detail and patient states [...] eating habits, sent binge eating questionnaire via [employer] that patient will complete. Would benefit from meeting with psychology as well. Consider joining [employer] of Mind sessions. -- Encouraged the patient to improve her physical activity. Although cardiovascular exercise is most beneficial for weight loss initially, we discussed healthy muscle from a combination of resistancetraining and cardiovascular exercise is the best extermination supervisor plan. An overall goal of 200 minutes perweek of exercise has been effective in weight loss and maintenance. RTC in 2 months. Myesha Loco MD Obesity Medicine Fellow [facility] Attending Note: I have personally seen [...] which included preparing to see the patient, ckmk-kv-xwfv patient care, completing clinical documentation, obtaining and/or reviewing separately obtained history, performing a medically appropriate examination, counseling and educating the pat ient/family/caregiver, ordering medications, tests, or procedures, independently interpreting results (not separately reported), communicating results to the patient/family/caregiver, and care coordination (not separately reported). documented in this encounterHocking Valley [facility] Hospital08-31-2022 NotePost Operative Note: PreOp Diagnosis: Suspected rectovaginal fistula Post-Procedure Diagnosis: Rectocele Procedure: 1. Exam under anesthesia Surgeon: Kelsea Rodriguez Resident/Fellow/Other Mixed Crop Farmer: Jeffrey Meek Anesthesia: LMA Estimated Blood Loss [...] dilatators, and no fistula was appreciated. Dr Pereira was asked to come to the OR [...] entire procedure Electronic Signatures: Maria A Scott (Fellow)) (Signed 11-Jun-2022 13:54) Authored: Post Operative Note, Note Completion Darryl Rodriguez) (Signed 12-Jun-2022 07:04) Authored: Note Completion Co-Signer: Post Operative Note, Note Completion Last Updated: 12-Jun-2022 07:04 by Darryl Rodriguez)[facility] NoteClinical Note - Pharmacy v2: Education: Document TopicMedication Education MedicationMeds to Beds: Patient accepts Meds to Beds service at discharge, please [facility]. Sources used to confirm home medication list: Patient interview/ Chart review High alert medications: N/A OARRS: overdose risk score 430. May consider prescribing Narcan given occasional control fill history. - oxycodone last dispensed 02/18/22 for 7 days supply Additional comments: Patient reports stop taking metformin due to diarrhea. [facility]22 recommended to stop if side effects continue. Patient states has Mirena IUD. Medication home list complete Please reach out via Ambitious Minds for questions Mary Ramirez [facility] PGY1 Resident [facility] Ambulatory and Retail services Is This Intervention Medication Reconciliation Relatedyes Time Required5 - 10 minutes Additional NotesMed Status: Patient Currently Takes Medications Drug Name: ocular lubricant ophthalmic solution Instructions: 1 drop(s) to each affected eye 3 times a day, As Needed Drug Name: levonorgestrel 52 mg intrauterine device Instructions: 1 each intrauterine once Allergy: Allergies Summary No Known Allergies Electronic Signatures: Mary Ramirez ([facility]) (Signed 11-Jun-2022 12:02) Authored: Education, Allergy Jer Dowling ([facility]) (Signed 11-Jun-2022 17:12) Co-Signer: Education, Allergy Last Updated: 11-Jun-2022 17:12 by Jer Dowling ([facility]08-31-2022 NoteHistory of Present Illness: /Lactating: Are You [...] the note. I personally evaluated the patient [id number] Electronic Signatures: Darryl Rodriguez) (Signed 11-Jun-2022 11:02) Authored: Note Completion Co-Signer: History of Present Illness, Home Medication Review, Impression/Procedure, ERAS, Physical Exam, Consent, Note Completion Marley Forrest (Resident)) (Signed 10-Jun-2022 14:13) Authored: History of Present Illness, Home Medication Review, Impression/Procedure, ERAS, Physical Exam, Consent, Note Completion Last Updated: 11-Jun-2022 11:02 by Darryl Rodriguez)[facility]08-11-2022 Instructions* Patient Instructions* Leelee Tobar APRN.WALKING DRAGLINE OPERATOR - 05/22/2022 8:34 AM EDT 1.) May schedule consult with bariatric medicine. 2.) You may stop the metformin due to side effects. 3.) Continue work on eating a well balanced diet. I recommend tracking food, myfitnesspal phone jessica. Work on increasing protein, veggies, and exercise. 4.) Follow up as needed. documented in this encounterHocking Valley [facility] Hospital08-11-2022 History of Present illness Narrative* Leelee [...] of popliteal vein of right lower extremity ([facility]) 02/2022 Allergic rhinitis, unspecified 12/16/2018 Chlamydia 16 YO Encounter for insertion of mirena IUD 12/24/2021 Ex-smoker 12/16/2018 Started at age 19 up to 1/2-1 PPD, quit 05/2018 SAMAN (generalized anxiety disorder) 12/16/2018 Seeing Klaus Gonzalez at [facility]. History of gastroesophageal reflux (GERD) 12/16/2018 Obesity, Class III, BMI 40-49.9 (morbid obesity) ([facility]) 03/09/2018 Psoriasis 12/16/2018 Vitamin D deficiency 12/16/2018 [...] APRN.CNP This note was partially generated using Evcarco voice recognition system. Note was reviewed for accuracy. There may be minor misspellings or grammar miscues with Evcarco voice recognition. documented in this encounterHocking Valley [facility] Hospital07-14-2022 Instructions* Patient Instructions* Leelee Tobar APRN.CNP - 04/24/2022 9:58 AM EDT 1.) Start metformin 500 mg twice daily. 2.) Try to increase protein and veggies 3.) Get some form of exercise, SocStockube is great. 4.) Recommend tracking food, ISHpal jessica on phone 5.) Follow up 1 month. documented in this encounterHocking Valley [facility] Hospital07-14-2022 History of Present illness Narrative* Leelee [...] Laterality Date CYST EXCISION 2016 right leg EXTRACTION, ERUPTED TOOTH OR EXPOSED [...] 2-ROSIE 0.15 MG/0.3ML SOAJuse as directed EPINEPHRINE [id number] Maria Esther Grover MD 01-28-2012 Maria Esther Grover MD [facility] ([id number]) (Patient not taking: Reported on 12/29/2020) metFORMIN (GLUCOPHAGE) 500 mg tablet Take 1 tablet by mouth three times daily. (Patient not taking:Reported on 12/29/2020 ) progesterone micronized (PROMETRIUM) 200 mg capsule Take 1 capsule by mouth as directed. (Patient not taking: Reported on 12/29/2020 ) Faiigolcuiyfzlg-Vsythvitl-ZQ (BROMFED DM) 2-30-10 mg/5 mL syrup Take [...] discussed and patient voices understanding. Leelee Tobar APRN.WALKING DRAGLINE OPERATOR This note was partially generated using Evcarco voice recognition system. Note was reviewed for accuracy. There may be minor misspellings or grammar miscues with Evcarco voice recognition. I spent a total of 25 minutes on the date of the service which included zyia-gy-avkd patient care, obtaining and/or reviewing separately obtained history, counseling and educating the patient/family/caregiver and ordering medications, tests, or procedures. documented in this encounterHocking Valley Community Hospital05-23-2022 Evaluation + Plan note Future Scheduled Tests Laboratory* Clostridium difficile (PCR) 03/03/22 [facility] 05-23-2022 Evaluation + Plan note Future Appointments Future Scheduled Tests Laboratory* Clostridium difficile (PCR) 03/03/22 [facility] 05-06-2022 Hospital Discharge instructions Patient Education 02/14/2022 16:29:03 Pain Medicine Instructions, Rage-bk-Dbqf Pain Medicine Instructions You may need pain [...] you take your next dose. Take other wyxq-nct-oabmhzc or prescription medicines only as told by [...] 03/16/2009 Document Revised: 09/10/2018 Document Reviewed: 05/10/2018 [employer] Patient Education 2020 [employer]. 02/14/2022 16:29:01 Acute Pain, Adult Acute Pain, [...] Follow these instructions at home: Medicines Take vaks-njj-tviholw and prescription medicines only as told by [...] pain is severe. ?Do not take other mqzq-ktt-idohpuc pain medicines in addition to prescription pain [...] grains, and fresh fruits and vegetables. ?Take tdmj-bbw-yqerhtg or prescription medicines. ?Limit foods that are [...] or you are no longer ill. Take zuta-fcs-gnsvjeb and prescription medicines only as told by [...] 10/12/2016 Document Revised: 02/13/2020 Document Reviewed: 02/13/2020 [employer] Patient Education 2020 [employer]. Follow Up Care 01/02/2022 09:42:53 With:DAY VELAZQUEZ MD, PARTS CLERK PLANT MAINTENANCE-ONC Address: [address] [place] [address] [place] [address] When:02/26/2022 14:20:00 With:BUDDY IBARRA DO Address: [address] [place] [phone] When:1-2 days Comments:Choice #1 With:SUSAN DAVIS MD Address: [address] [place] [phone] When:1-2 days Comments:Choice #2 With:JEAN PIERRE VELAZCO DO Address: [address] [place] [phone] When:1-2 days Comments:Choice #3 [facility] 05-02-2022 Evaluation + Plan noteExtracted from: Title:PARTS CLERK PLANT MAINTENANCE ONC H&P Author:ARMANDO YUNG DO Date: 02/10/22 PARTS CLERK PLANT MAINTENANCE-Onc H&P: DATE OF ADMISSION: 02/10/22 ATTENDING PHYSICIAN: [...] Rectovaginal fistula PAST SURGICAL HISTORY: Dilation and curettage-2019 Fourth degree perineal laceration for wound Dehiscence-05/16/21 4th Degree Laceration Repair Extraction of wisdom tooth examination under anesthesia, repair of fistula in perineum. examination under anesthesia, exploratory laparotomy, loop ileostomy placement POT ROOM TAPPER HISTORY: . FAVD with 4th degree laceration. [...] Date:02/26/2022 11:00:00 AM Scheduled Provider:DAY VELAZQUEZ MD Location:PARTS CLERK PLANT MAINTENANCE ONC Appointment Type:SO OV Post Op [facility] 12-24-2021 Hospital Discharge instructions Patient Education 10/04/2021 20:12:43 Colostomy: Caring for Your Stoma Colostomy: Caring for Your Stoma Applying an extra skin barrier, such as a wipe, helps protect the skin if stool leaks around the pouch. Wipe it in a [place] around the stoma. Then let it dry [...] it each time you change your pouch. continuous wave operator front of a mirror,or use a hand [...] or it sticks up more than normal. [phone] The [employer]. [address] [place] [address]. All rights reserved. This information is not intended as a substitute for professional medical care. Always follow yourhealthcare professional's instructions. Follow Up Care 10/04/2021 19:12:57 With:DAY VELAZQUEZ MD, PARTS CLERK PLANT MAINTENANCE-ONC Address: [address] [place] [address] [place] [address] [phone] When:2-4 days [facility] 11-29-2021 Hospital Discharge instructions Patient Education [...] and water are not available, use hand splash line operator. ?Change your dressing as told by your [...] provider about eating or drinking restrictions. Take kwgu-asl-qljyjhk and prescription medicines only as told by [...] 02/18/2012 Document Revised: 01/25/2019 Document Reviewed: 01/25/2019 [employer] Patient Education 2019 [employer]. Follow Up Care 09/08/2021 06:53:15 With:Conchita [facility] will follow you at wa [phone] Address:Unknown When:1-2 days With:DAY VELAZQUEZ Address: [address] [place] [address] [phone] Business (1) When:1-2 days [facility] 11-28-2021 Evaluation + Plan noteExtracted from: [...] allergy PAST SURGICAL HISTORY: _ Dilation and curettage-2019 Fourth degree perineal laceration for wound Dehiscence-05/16/21 4th Degree Laceration Repair Extraction of wisdom tooth POT ROOM TAPPER HISTORY: . FAVD with 4th degree laceration. [...] Signs(Last 24 hrs)__Last Charted Minimum Maximum Temp36.4(SEP 07:)36.4(SEP 07:)36.4(SEP 07:) Resp Rate18(SEP 07:)18(SEP 07:)18(SEP 07:) SBPH 141(SEP 07:)H 141(SEP 07 22:)H 141(SEP 07:) DBP84(SEP 07:)84(SEP 07:)84(SEP 07:) GENERAL: [...] on September 08, 2021 5:58 EST Above PARTS CLERK PLANT MAINTENANCE Note was a late entry. Patient did page again just now from [place] ED that her ostomy bag is leaking and that she feels comfortable if she was admitted for proper teaching. However, i did explain to her that this is really unnecessary - she just needs to learn how to securely fit the ostomy bag. She stated that multiple providers in [place] attempted to secure the bag with no success. I told her she could come for evaluation to the ED. Addendum by SHIRLEY CARRION DO on September 08, 2021 9:32 EST Following her discharge fro [place] [facility]I p t went to [facility] with similar concerns and was sent back to [place] after the ostomy bag was changed. On [...] Appointment Date:09/09/2021 09:40:00 AM Scheduled Provider:QUINTON ROCHA Location:PARTS CLERK PLANT MAINTENANCE ONC Appointment Type:SO OV Post Op Appointment Date:09/11/2021 10:20:00 AM Scheduled Provider:DAY VELAZQUEZ MD Location:PARTS CLERK PLANT MAINTENANCE ONC Appointment Type:SO OV Post Op Appointment Date:11/13/2021 11:20:00 AM Scheduled Provider:DAY VELAZQUEZ MD Location:PARTS CLERK PLANT MAINTENANCE ONC Appointment Type:SO OV Follow Up [facility] 11-28-2021 Hospital Discharge instructions Patient Education [...] or it sticks up more than normal. [phone] [employer]. [address] [place] [address], [place] [address]. All rights reserved. This information is not intended as a substitute for professional medical care. Always follow yourhealthcare professional's instructions. 09/08/2021 01:16:00 Ileostomy: Caring For Your Stoma Ileostomy: Caring for Your Stoma Applying an extra skin barrier, such as a wipe, helps protect the skin if stool and digestive juices leak around the pouch. Wipe it in a [place] around the stoma. Then let it dry [...] it each time you change your pouch. continuous wave operator front of a mirror, or use a [...] or it sticks up more than normal. [phone] [employer]. [address] [place] [address]. All rights reserved. This information is not intended as a substitute for professional medical care. Always follow yourhealthcare professional's instructions. Follow Up Care 09/07/2021 22:04:03 With:DAY VELAZQUEZ MD, PARTS CLERK PLANT MAINTENANCE-ONC Address: [phone] When:2-4 days [facility] 11-23-2021 Hospital Discharge instructions Patient Education [...] including vitamins, herbs, eye drops, creams, and npuy-ulw-puvscqj medicines. Any problems you or family members [...] provider tells you to take them. Taking slgi-dti-zodwmwz medicines, vitamins, herbs, and supplements. Eating and [...] 09/08/2016 Document Revised: 06/06/2019 Document Reviewed: 06/06/2019 [employer] Patient Education 2020 [employer] Follow Up Care 08/29/2021 21:45:18 With:[facility] will provide home health care services for Nursing care-Ostomy care. please call [phone] if you have questions. Address:Unknown When:1-2 days With:DAY VELAZQUEZ MD, PARTS CLERK PLANT MAINTENANCE-ONC Address: [address] [facility] [address] [place] [address] [phone] When:09/11/2021 10:20:00 [facility] 11-19-2021 Evaluation + Plan noteExtracted from: [...] discharged home after 3 days. Patient paged solutions sales consultant resident tonight endorsing worsening rectal and vaginal pain. Was instructed to take her oxycodone as well as ibuprofen. However patient then called back the solutions sales consultant resident and stated she's had worsening stool [...] denies Past Surgical History: Dilation and curettage-2020: 2019 Fourth degree perineal laceration for wound Dehiscence-05/16/21 4th Degree Laceration Repair Extraction of wisdom tooth Repair of rectovaginal fistrula on 08/26/2021 Jumbo Operator History: . FAVD with 4th degree laceration. [...] Signs(Last 24 hrs)_Last Charted Minimum Maximum Temp36.3(AUG 29 21:35)36.3(AUG 29 21:35)36.3(AUG 29:35) Resp Rate20(AUG 29:35)20(AUG 29 21:35)20(AUG 29 21:35) SOK766(AUG 29:35)128(AUG 29 21:35)128(AUG 29 21:35) DBP77(AUG 29:35)77(AUG 29 [...] further examination past gentle labial retraction -Dilaudid ASSOCIATE PROFESSOR OF PHILOSOPHY for pain, as well as ibuprofen and [...] IV antibiotics with Cipro and Flagyl. Dilaudid ASSOCIATE PROFESSOR OF PHILOSOPHY, tylenol and ibuprofen for pain control at this time. Dr. Velazquez aware of patient admission and will discuss further plan in the morning. Addendum by LANDY HOROWITZ DO on August 30, 2021 6:08 EST Patient seen and examined this AM. Pain well-controlled on ASSOCIATE PROFESSOR OF PHILOSOPHY pump. Patient concerned that green mercado came [...] tomorrow. Consult wound care nursing team to jostin her abdomen. DAY VELAZQUEZ MD, FACOG Future Appointments Appointment Date:09/11/2021 10:20:00 AM Scheduled Provider:DAY VELAZQUEZ MD Location:PARTS CLERK PLANT MAINTENANCE ONC Appointment Type:SO OV Post Op Appointment Date:11/13/2021 11:20:00 AM Scheduled Provider:DAY VELAZQUEZ MD Location:PARTS CLERK PLANT MAINTENANCE ONC Appointment Type:SO OV Follow Up [facility] 11-17-2021 Hospital Discharge instructions Patient Education 08/28/2021 15:59:50 8- Post Op PARTS CLERK PLANT MAINTENANCE Surgery (09/2020)(CUSTOM) What to Do After Your [...] as your pain allows. You may take ofbv-fnx-sdzeblybqdq medication if you no longer need your prescribed pain medication. Uwko-tju-rnrdsoq pain medications are Tylenol (acetaminophen) or Advil (ibuprofen). Do not take Tylenol if you are still taking [place] or Percocet. They are the same type [...] Up Care 08/22/2021 16:00:59 With:DAY VELAZQUEZ MD, PARTS CLERK PLANT MAINTENANCE-ONC, PARTS CLERK PLANT MAINTENANCE-ONC Address: [phone] When:09/03/2021 13:20:00 Comments:Appointment with Dr. Velazquez's nurse practitioner [place] for suture and drain removal With:DAY VELAZQUEZ MD, PARTS CLERK PLANT MAINTENANCE-ONC Address: [address] [place] [phone] When:09/11/2021 10:20:00 [facility] 08-29-2021 Hospital Discharge instructions* Instructions* Chandrakant, Michelle, MD - 06/09/2021 Thank you for coming [...] copy of the tests performed today on [email or web address]. Please bring the results with you if [...] through Care Everywhere. * Round Ligament Pain (Italian) documented in this encounterSUMMA Work Phone: 1(832) 746-296408-06-2021 History of Present illness Narrative* Helene Schwartz RN - 05/17/2021 12:30 PM EDT Confirmed with That oxycodone script was sent directly to [facility] pharmacy in [place]. * Helene Schwartz RN - 05/17/2021 12:09 PM EDT Discharge instructions given to patient with good understanding. * Danii Thomason, - 05/17/2021 5:48 AM EDT Images from [...] 100 mg 100 mg Oral BID Danii Thomason, DO 100 mg at 05/16/21 2038 polyethylene glycol (GLYCOLAX) packet 17 g 17 g Oral Daily Danii Thomason, DO 17 g at 05/16/21 1227 ibuprofen [...] 10%-15% lower than serum/plasma values. (CLIA ID [id number]) Assessment/Plan: Leelee Zamora 26 y.o. female POD#1 s/p Rectovaginal Fistula Repair, perineorraphy 1. Post-operative care - Doing well, vitals stable - voiding independently - Encourage ambulation and use of incentive spirometer - Pain controlled: yes - DVT Proph: SCDs while in bed , ambulation - Abx: [id number] hrs - Diet: clear liquid will discuss [...] Thomason DO - 05/16/2021 3:37 PM EDT 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 Operator Onc PM Rounding Note Pt resting in [...] RN in regards to policy allowing for to stay with mother Post procedure. Do feel that is indicated for infant to be allowed to stay with mother [...] who agrees with plan. documented in this [facility] Work Phone: [phone] 836-430108-06-2021 NoteGyn/ONC Discharge Summary Patient Name: Leelee Zamora [...] Discharge: Medications: Leelee Zamora Home Medication Instructions TRACEY:[id number] Printed on:05/17/21 0828 Medication Information docusate sodium [...] Home care, Follow-up care, restrictions reviewed. Danii Thomason DO 05/17/2021, 8:28 [facility]08-06-2021 Hospital course Narrative* Danii Thomason DO - 05/17/2021 8:26 AM EDT Images from the original note were not included. 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 Danii Thomason DO 05/17/2021, 8:28 AM documented in this [facility] Work Phone: 1(931) 686-501707-21-2021 History of Present illness Narrative* 27-year-old had a vaginal delivery of 8 pound 9 ounce girl 1 year ago May 05. Her labor lasted more than 24 hours she ended up with forcep assisted the vaginal delivery and 1/4 degree laceration. She lost a lot of blood 3 days later her laceration repair failed she saw Dr. Yemi Baez in [place] and had a revision 7 days after delivery. Unfortunately she has continued to have stoolin the vagina ended up with an abscess and C. difficile. * She later had a second revision with Dr. Velazquez at [place] which also failed per the patient and shehad a ileostomy done in order to give her a break. She had that for about 6 months and was reversedMay 2 after methylene dye test was negative. However she still feels symptoms of discharge and stool through the vagina and gas. 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 [facility] Work Phone: [phone]) 147-920703-20-2021 History of Present illness Narrative* Fitz Delanye Tech (Rt) - 12/29/2020 9:30 AM EDT Radiology Service [...] 29, 2020 9:31 AM [facility] Future Appointments Appointment Date:07/30/2021 09:45:00 AM Scheduled Provider: Location:RAD Appointment Type:XR Barium Enema Complete Appointment Date:08/08/2021 03:10:00 PM Scheduled Provider:DAY VELAZQUEZ MD Location:[facility]S CLERK [employer] ONC Appointment Type:SO OV Follow Up Future Scheduled Tests Radiology* XR Barium Enema Complete 07/30/21 [facility] Evaluation + Plan note Future Appointments Appointment Date:08/08/2021 03:10:00 PM Scheduled Provider:DAY VELAZQUEZ MD Location:[employer] [employer] ONC Appointment Type:SO OV Follow Up [facility] Evaluation + Plan note Future Appointments Appointment Date:11/13/2021 11:20:00 AM Scheduled Provider:DAY VELAZQUEZ MD Location:[employer] ONC Appointment Type:SO OV Follow Up [facility] Evaluation + Plan note Future Appointments Appointment Date:09/11/2021 10:20:00 AM Scheduled Provider:DAY VELAZQUEZ MD Location:[employer] [employer] ONC Appointment Type:SO OV Post Op Appointment Date:11/13/2021 11:20:00 AM Scheduled Provider:DAY VELAZQUEZ MD Location:[employer] ONC Appointment Type:SO OV Follow Up [facility] Evaluation + Plan note Future Appointments Appointment Date:09/03/2021 01:20:00 PM Scheduled Provider:QUINTON ORCHA Location:[employer] [employer] ONC Appointment Type:SO OV Post Op Appointment Date:09/11/2021 10:20:00 AM Scheduled Provider:DAY VELAZQUEZ MD Location:[employer] ONC Appointment Type:SO OV Post Op Appointment Date:11/13/2021 11:20:00 AM Scheduled Provider:DAY VELAZQUEZ MD Location:[employer] ONC Appointment Type:SO OV Follow Up [facility] Evaluation + Plan note Future Appointments Appointment Date:09/19/2021 10:10:00 AM Scheduled Provider:DAY VELAZQUEZ MD Location:[employer]ERK [employer] ONC Appointment Type:SO OV Post Op Appointment Date:11/13/2021 11:20:00 AM Scheduled Provider:DAY VELAZQUEZ MD Location:[employer]ERK [employer] ONC Appointment Type:SO OV Follow Up [facility] Evaluation + Plan note Future Appointments Appointment Date:10/03/2021 01:40:00 PM Scheduled Provider:DAY VELAZQUEZ MD Location:[employer] ONC Appointment Type:SO OV Post Op Appointment Date:11/13/2021 11:20:00 AM Scheduled Provider:DAY VELAZQUEZ MD Location:[employer] ONC Appointment Type:SO OV Follow Up [facility] Evaluation + Plan note Future Appointments Appointment Date:11/13/2021 11:20:00 AM Scheduled Provider:DAY VELAZQUEZ MD Location:[employer] [employer] ONC Appointment Type:SO OV Follow Up Appointment Date:12/05/2021 10:00:00 AM Scheduled Provider: Location:XRAY Appointment Type:XR Barium Enema Complete Appointment Date:12/12/2021 03:10:00 PM Scheduled Provider:DAY VELAZQUEZ MD Location:[employer] ONC Appointment Type:SO OV Follow Up Future Scheduled Tests Radiology* XR Barium Enema Complete 12/05/21 [facility] evaluation + Plan note Future Appointments Appointment Date:12/26/2021 10:00:00 AM Scheduled Provider: Location:XRAY Appointment Type:XR Barium Enema Complete Appointment Date:01/02/2022 02:50:00 PM Scheduled Provider:DAY VELAZQUEZ MD Location:[employer] CLERK [employer] ONC Appointment Type:SO OV Follow Up Future Scheduled Tests Radiology* XR Barium Enema Complete 12/26/21 [facility] evaluation + Plan note Future Appointments Appointment Date:12/12/2021 03:10:00 PM Scheduled Provider:DAY VELAZQUEZ MD Location:[employer] CLERK [employer] ONC Appointment Type:SO OV Follow Up Appointment Date:12/26/2021 10:00:00 AM Scheduled Provider: Location:XRAY Appointment Type:XR Barium Enema Complete Future Scheduled Tests Radiology* XR Barium Enema Complete 12/26/21 [facility] evaluation + Plan note Future Appointments Appointment Date:01/01/2022 02:30:00 PM Scheduled Provider:DAY VELAZQUEZ MD Location:[employer]S CLERK [employer] ONC Appointment Type:SO OV Follow Up [facility] Evaluation + Plan note Future Appointments Appointment Date:02/26/2022 11:00:00 AM Scheduled Provider:DAY VELAZQUEZ MD Location:[employer]S CLERK [employer] ONC Appointment Type:SO OV Post Op [facility] Evaluation + Plan note Future Appointments Appointment Date:03/27/2022 11:00:00 AM Scheduled Provider:DAY VELAZQUEZ MD Location:[employer]S CLERK [employer] ONC Appointment Type:SO OV Post Op [facility] evaluation + Plan note Future Appointments Appointment Date:04/03/2022 10:00:00 AM Scheduled Provider: Location:RAD Appointment Type:MRI Pelvis Uterine/Ovarian Appointment Date:04/09/2022 01:10:00 PM Scheduled Provider:DAY VELAZQUEZ MD Location:[employer] ONC Appointment Type:SO OV Follow Up Future Scheduled Tests Laboratory* Clostridium difficile (PCR) 03/03/22 Radiology* MRI Pelvis Uterine/Ovarian 04/03/22 [facility] Evaluation + Plan note Future Appointments Appointment Date:07/16/2022 01:40:00 PM Scheduled Provider:DAY VELAZQUEZ MD Location:[employer] CLERK [employer] ONC Appointment Type:SO OV Follow Up Future Scheduled Tests Laboratory* Clostridium difficile (PCR) 03/03/22 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 Disruption of perineal wound, unspecified as to episode of care in documented in this encounter [facility] Work Phone: Evaluation note* Diagnosis Lower abdominal pain- Primary Abdominal pain, other specified site Rectal pain Anal or rectal pain Difficult or painful urination Dysuria Acute cystitis without hematuria Acute cystitis documented in this encounter [facility] Work Phone: Evaluation note* Diagnosis Perineal pain- Primary Post-operative state- Primary Other postprocedural status documented in this encounter [facility] Work Phone: Evaluation noteThere may be information available, but it has not been provided by the sender.[facility] Work Phone: Evaluation note* Diagnosis Weight gain- Primary Abnormal weight gain documented in this encounter [facility] note* Diagnosis Weight gain- Primary Abnormal weight gain [facility] [place] [facility]* Diagnosis Class 3 severe obesity without serious comorbidity with body mass index (BMI) of 45.0 to 49.9 in adult, unspecified obesity type (HCC)- Primary Weight gain Abnormal weight gain documented in this encounter [facility] note* Diagnosis Acute bilateral low back pain, unspecified whether sciatica present- Primary Acute sinusitis, recurrence not specified, unspecified location documented in this encounter [facility] note* Diagnosis Allergic reaction, initial encounter- Primary documented in this encounter [facility] note* Diagnosis Class 3 severe obesity without serious comorbidity with body mass index (BMI) of 45.0 to 49.9 in adult, unspecified obesity type (HCC)- Primary Encounter for screening for diabetes mellitus Screening for diabetes mellitus Weight gain Abnormal weight gain [facility] [place] [facility]* Diagnosis Class 3 severe obesity without serious comorbidity with body mass index (BMI) of 45.0 to 49.9 in adult, unspecified obesity type (HCC)- Primary [facility] [place] [facility]* Diagnosis IUD (intrauterine device) in place- Primary Presence of intrauterine contraceptive device PCOS (polycystic ovarian syndrome) Polycystic ovaries documented in this encounter [facility] note* Diagnosis Class 3 severe obesity without serious comorbidity with body mass index (BMI) of 45.0 to 49.9 in adult, unspecified obesity type (HCC)- Primary documented in this encounter [facility] note* Diagnosis Hernia of abdominal wall- Primary Ventral hernia, unspecified, without mention of obstruction or gangrene documented in this encounter [facility] note* Diagnosis Blurry vision, right eye- Primary Other specified visual disturbances documented in this encounter [facility] note* Diagnosis RUQ abdominal pain- Primary Abdominal pain, right upper quadrant Hernia of abdominal wall Ventral hernia, unspecified, without mention of obstruction or gangrene documented in this encounter [facility] note* Diagnosis Bronchitis- Primary Bronchitis, not specified as acute or chronic documented [facility] [place] [facility]* Diagnosis Diplopia- Primary Meibomian gland dysfunction (MGD) of upper and lower lids of both eyes documented in this encounter [facility] note* Diagnosis Diplopia- Primary Intermittent alternating exotropia Intermittent exotropia, alternating Meibomian gland dysfunction (MGD) of upper and lower lids of both eyes documented [facility] [place] [facility]* Diagnosis Class 3 severe obesity without serious comorbidity with body mass index (BMI) of 45.0 to 49.9 in adult, unspecified obesity type (HCC)- Primary History of gastroesophageal reflux (GERD) Personal history of other diseases of digestive system documented [facility] this [facility] [place] [facility]* Diagnosis Vaginal discharge- Primary Leukorrhea, not specified as infective documented [facility] [place] [facility]* Diagnosis Acute pain of left shoulder- Primary documented [facility] [place] [facility]* Diagnosis Well female exam with routine gynecological exam- Primary Routine gynecological examination Acute vaginitis Vaginitis and vulvovaginitis, unspecified Frequent UTI Urinary tract infection, site not specified documented in this encounter [facility] note* Diagnosis Class 3 severe obesity without serious comorbidity with body mass index (BMI) of 45.0 to 49.9 in adult, unspecified obesity type (HCC) documented [facility] [place] [facility]* Diagnosis Pelvic pain- Primary documented in this encounter [facility] noteNo assessment information availableWHighland [facility] Work Phone: evaluation note* Diagnosis Class 3 severe obesity without serious comorbidity with body mass index (BMI) of 45.0 to 49.9 in adult, unspecified obesity type (HCC)- Primary documented in this encounter [facility] note* Diagnosis Treatment not available- Primary Procedure not carried out for other reasons documented [facility] [place] [facility]* Diagnosis Recurrent UTI- Primary Urinary tract infection, site not specified documented [facility] [place] [facility]* Diagnosis Class 3 severe obesity without serious comorbidity with body mass index (BMI) of 45.0 to 49.9 in adult, unspecified obesity type (HCC) documented in this encounter [facility] note* Diagnosis Recurrent UTI- Primary Urinary tract infection, site not specified documented in this encounter [facility] note* Diagnosis Onset Date Resolution Status SBO (small bowel obstruction) [facility] Work Phone: evaluation note* Diagnosis Class 3 severe obesity without serious comorbidity with body mass index (BMI) of 45.0 to 49.9 in adult, unspecified obesity type (HCC)- Primary Candidal intertrigo Candidiasis of skin and nails Hernia of abdominal wall Ventral hernia, unspecified, without mention of obstruction or gangrene Polycystic ovary syndrome Polycystic ovaries documented in this encounter [facility] note* Diagnosis Migraine without aura and without status migrainosus, not intractable- Primary Migraine without aura, without mention of intractable migraine without mention of status migrainosus documented in this encounter [facility] note* Diagnosis White vaginal discharge- Primary Leukorrhea, not specified as infective Urethral pain Other symptoms involving urinary system Encounter for screening for diabetes mellitus Screening for diabetes mellitus documented in this encounter [facility] note* Diagnosis Onset Date Resolution Status Abdominal pain resolved Nausea resolved Small bowel obstruction reso ed [facility] Work Phone: Evaluation note* Diagnosis Pelvic floor dysfunction- Primary Pelvic muscle wasting Pelvic floor dysfunction Pelvic muscle wasting documented in this encounter [facility] note* Diagnosis Pelvic floor dysfunction- Primary Pelvic muscle wasting Rectal vaginal fistula Digestive-genital tract fistula, female Pelvic floor dysfunction Pelvic muscle wasting documented in this encounter [facility] note* Diagnosis Complete intestinal obstruction, unspecified cause (HCC) documented [facility] this encounter [facility] [place] [facility]* Diagnosis Pelvic floor dysfunction- Primary Pelvic muscle wasting documented in this encounter [facility] note* Diagnosis Class 3 severe obesity without serious comorbidity with body mass index (BMI) of 45.0 to 49.9 in adult, unspecified obesity type (HCC)- Primary documented in this encounter [facility] note* Diagnosis Complication of intrauterine device (IUD), unspecified complication, initial encounter (HCC) documented in this encounter [facility] note* Diagnosis Liver lesion- Primary Other specified disorders of liver documented [facility] this encounter [facility] [place] [facility]* Diagnosis Calculus of gallbladder without cholecystitis without obstruction- Primary Calculus of gallbladder without mention of cholecystitis or obstruction RUQ pain Abdominal pain, right upper quadrant documented in this encounter [facility] note* Diagnosis Treatment not available- Primary Procedure not carried out for other reasons documented [facility] encounter [facility] [place] [facility]* Diagnosis Urinary frequency- Primary Right lower quadrant abdominal pain Abdominal pain, right lower quadrant documented in this encounter [facility] note* Diagnosis Class 3 severe obesity without serious comorbidity with body mass index (BMI) of 45.0 to 49.9 in adult, unspecified obesity type (HCC)- Primary documented [facility] encounter [facility] [place] [facility]* Diagnosis Menorrhagia with regular cycle- Primary Excessive or frequent menstruation Hirsutism Acne, unspecified acne type BMI 38.0-38.9,adult Body Mass Index 38.0-38.9, adult documented in this encounter [facility] [place] [facility]* Diagnosis Discharge from both nipples- Primary Family history of breast cancer Family history of malignant neoplasm of breast Family history of ovarian cancer Family history of malignant neoplasm of ovary Fibrocystic breast changes of both breasts Excess weight Overweight documented [facility] this encounter [facility] [place] [facility]* Diagnosis Vaginal discharge- Primary Leukorrhea, not specified as infective documented in this encounter [facility] note* Diagnosis Vaginal discharge- Primary Leukorrhea, not specified as infective documented [facility] this encounter [facility] [place] [facility]* Diagnosis Emergency contraceptive counseling- Primary Encounter for emergency contraceptive counseling and prescription documented [facility] [place] [facility]* Diagnosis URI, acute- Primary Acute upper respiratory infections of unspecified site ETD (Eustachian tube dysfunction), right documented [facility] this encounter [facility] [place] [facility]* Diagnosis Right facial swelling- Primary Swelling, mass, or lump in head and neck documented in this encounter [facility] note* Diagnosis Class 3 severe obesity without serious comorbidity with body mass index (BMI) of 45.0 to 49.9 in adult, unspecified obesity type (HCC) documented [facility] encounter [facility] [place] [facility]* Diagnosis Urinary tract infection without hematuria, site unspecified- Primary documented [facility] this [facility] [place] [facility]* Diagnosis Diarrhea of presumed infectious origin- Primary Abdominal cramping Abdominal pain, unspecified site documented [facility] this [facility] [place] [facility]* Diagnosis Class 3 severe obesity without serious comorbidity with body mass index (BMI) of 45.0 to 49.9 in adult, unspecified obesity type (HCC)- Primary Polycystic ovary syndrome Polycystic ovaries documented in this encounter [facility] [place] [facility]* Diagnosis Class 3 severe obesity without serious comorbidity with body mass index (BMI) of 45.0 to 49.9 in adult, unspecified obesity type (HCC) documented [facility] this [facility] [place] [facility]* Diagnosis Menorrhagia with irregular cycle- Primary Excessive or frequent menstruation Missed menses Absence of menstruation PCOS (polycystic ovarian syndrome) Polycystic ovaries documented in this [facility] [place] [facility]* Diagnosis ADHD (attention deficit hyperactivity disorder), predominantly hyperactive impulsive type- Primary Attention deficit disorder with hyperactivity [facility] Diagnosis Suprapubic pressure- Primary Abdominal pain, other specified site Vaginal discharge Leukorrhea, not specified as infective documented [facility] this encounter [facility] [place] [facility]* Diagnosis Pre-op evaluation- Primary Preoperative examination, [...] disorder with hyperactivity [facility] [place] [facility]* Diagnosis Pre-op evaluation- Primary Preoperative examination, [...] from both nipples documented [facility] this [facility] [place] [facility]* Diagnosis Pre-op evaluation- Primary Preoperative examination, [...] Unspecified sinusitis (chronic) documented in this [facility] [place] [facility]* Diagnosis Pre-op evaluation- Primary Preoperative examination, [...] thrombosis and embolism documented [facility] [place] [facility]* Diagnosis Pre-op evaluation- Primary Preoperative examination, [...] neoplasm of breast documented in this [facility] [place] [facility]* Diagnosis Pre-op evaluation- Primary Preoperative examination, [...] or frequent menstruation documented [facility] this [facility] [place] [facility]* Diagnosis Acute pain of left shoulder [...] unspecified obesity type documented [facility] [place] [facility]* Diagnosis Bronchitis Bronchitis, not specified as [...] unspecified obesity type documented in this encounter [facility] note* Diagnosis Pre-op evaluation- Primary Preoperative examination, [...] hazards to health documented in this encounter [facility] note* Diagnosis Elbow injury, right, initial encounter [...] unspecified obesity type documented in this encounter [facility] note* Diagnosis Pre-op evaluation- Primary Preoperative examination, [...] test, positive result documented in this encounter [facility] note* Diagnosis Pre-op evaluation- Primary Preoperative examination, [...] thrombosis and embolism documented in this encounter [facility] note* Diagnosis Pre-op evaluation- Primary Preoperative examination, [...] hazards to health documented in this encounter [facility] note* Diagnosis Pre-op evaluation- Primary Preoperative examination, [...] unspecified vein (HCC) documented in this encounter [facility] note* Diagnosis Pre-op evaluation- Primary Preoperative examination, [...] Primary state, incidental [facility] [place] [facility] Diagnosis Pre-op evaluation- Primary Preoperative examination, [...] of unspecified site documented in this encounter [facility] note* Diagnosis Pre-op evaluation- Primary Preoperative examination, [...] obstetric history Dysuria [facility] [place] [facility]* Diagnosis Pre-op evaluation- Primary Preoperative examination, [...] of state, incidental [facility] [place] [facility]* Diagnosis Pre-op evaluation- Primary Preoperative examination, [...] abscess without sinus documented in this encounter [facility] note* Diagnosis Pre-op evaluation- Primary Preoperative examination, [...] abscess of face documented in this encounter [facility] note* Diagnosis Pre-op evaluation- Primary Preoperative examination, [...] of state, incidental documented in this encounter [facility] note* Diagnosis Pre-op evaluation- Primary Preoperative examination, [...] of state, incidental documented in this encounter [facility] note* Diagnosis Pre-op evaluation- Primary Preoperative examination, [...] center preferred patient may be schedule at [facility], [facility] or [facility] per her preference [facility] Diagnosis Pre-op evaluation- Primary Preoperative [...] poor obstetric history documented in this encounter [facility] note* Diagnosis Pre-op evaluation- Primary Preoperative examination, [...] for diabetes mellitus documented in this encounter [facility] note* Diagnosis Pre-op evaluation- Primary Preoperative examination, [...] third trimester- Primary documented in this encounter [facility] note* Diagnosis Pre-op evaluation- Primary Preoperative examination, [...] structures Encounter for ultrasound to check growth ([facility])- Primary Encounter for routine screening for malformation using ultrasonics Obesity affecting in second trimester, unspecified obesity type (HCC) 28 weeks gestation of (HCC) state, incidental documented in this encounter [facility] note* Diagnosis Pre-op evaluation- Primary Preoperative examination, [...] (DVT) of right upper extremity, unspecified vein ([facility]) Rectovaginal fistula Digestive-genital tract fistula, female Obesity affecting in second trimester, unspecified obesity type ([facility]) History of forceps delivery in prior , currently ([facility]) with other poor obstetric history Liver hemangioma Hemangioma of intra-abdominal structures Diet controlled gestational diabetes mellitus (GDM) in third trimester ([facility]) [facility] [place] [facility]* Diagnosis Pre-op evaluation- Primary Preoperative examination, [...] of maternal fourth degree perineal laceration, currently ([facility]) with other poor obstetric history Acute deep vein thrombosis (DVT) of right upper extremity, unspecified vein ([facility]) Rectovaginal fistula Digestive-genital tract fistula, female Obesity affecting in second trimester, unspecified obesity type ([facility]) History of forceps delivery in prior , currently ([facility]) with other poor obstetric history Liver hemangioma Hemangioma of intra-abdominal structures Supervision of high risk in third trimester ([facility])- Primary Unspecified high-risk Diet controlled gestational diabetes mellitus (GDM) in third trimester ([facility]) History of maternal fourth degree perineal laceration, currently (HCC) with other poor obstetric history 28 weeks gestation of ([facility]) state, incidental Obesity affecting in third trimester, unspecified obesity type ([facility]) Need for vaccination Need for prophylactic vaccination and inoculation against unspecified single disease [facility] [place] [facility]* Diagnosis Pre-op evaluation- Primary Preoperative examination, [...] of gestational diabetes in prior , currently ([facility])- Primary with other poor obstetric history History of maternal fourth degree perineal laceration, currently ([facility]) with other poor obstetric history Acute deep vein thrombosis (DVT) of right upper extremity, unspecified vein ([facility]) Rectovaginal fistula Digestive-genital tract fistula, female Obesity affecting in second trimester, unspecified obesity type ([facility]) History of forceps delivery in prior , currently ([facility]) with other poor obstetric history Liver hemangioma Hemangioma of intra-abdominal structures 29 weeks gestation of ([facility])- Primary state, incidental Diet controlled gestational diabetes mellitus (GDM) in third trimester ([facility]) History of maternal fourth degree perineal laceration, currently ([facility]) with other poor obstetric history Supervision of high risk in third trimester ([facility]) Unspecified high-risk Obesity affecting in second trimester, unspecified obesity type ([facility]) Decreased movements in second trimester, single or unspecified fetus ([facility]) documented [facility] this [facility] [place] [facility]* Diagnosis Pre-op evaluation- Primary Preoperative examination, [...] of gestational diabetes in prior , currently ([facility])- Primary with other poor obstetric history History of maternal fourth degree perineal laceration, currently (HCC) with other poor obstetric history Acute deep vein thrombosis (DVT) of right upper extremity, unspecified vein ([facility]) Rectovaginal fistula Digestive-genital tract fistula, female Obesity affecting in second trimester, unspecified obesity type ([facility]) History of forceps delivery in prior , currently ([facility]) with other poor obstetric history Liver hemangioma Hemangioma of intra-abdominal structures Diet controlled gestational diabetes mellitus (GDM) in third trimester ([facility])- Primary History of maternal fourth degree perineal laceration, currently ([facility]) with other poor obstetric history Supervision of high risk in third trimester ([facility]) Unspecified high-risk Obesity affecting in second trimester, unspecified obesity type ([facility]) 32 weeks gestation of ([facility]) state, incidental * Assessment & Plan Note - Britney Griffin MD - 02/06/2025 2:14 PM EDT Associated Problem(s): Diet controlled gestational diabetes mellitus (GDM) in third trimester ([facility]) hasn't been checking BS regularly, no log [...] of maternal fourth degree perineal laceration, currently ([facility]) Had extensive repair after last delivery, very [...] Associated Problem(s): Obesity complicating , second trimester ([facility]) Orders: URINE OB DIP B/O CONSULT TO MATERNAL MEDI; Future NON-STRESS TEST; Standing [facility] Diagnosis Pre-op evaluation- Primary Preoperative examination, unspecified Acute deep vein thrombosis (DVT) of popliteal vein of right lower extremity ([facility]) Vapes nicotine containing substance SAMAN (generalized anxiety disorder) Generalized anxiety disorder Acute deep vein thrombosis (DVT) of right upper extremity, unspecified vein ([facility]) History of gastroesophageal reflux (GERD) Personal history of other diseases of digestive system Class 2 obesity without serious comorbidity with body mass index (BMI) of 36.0 to 36.9 in adult, unspecified obesity type History of gestational diabetes in prior , currently ([facility])- Primary with other poor obstetric history History of maternal fourth degree perineal laceration, currently ([facility]) with other poor obstetric history Acute deep vein thrombosis (DVT) of right upper extremity, unspecified vein ([facility]) Rectovaginal fistula Digestive-genital tract fistula, female Obesity affecting in second trimester, unspecified obesity type ([facility]) History of forceps delivery in prior , currently ([facility]) with other poor obstetric history Liver hemangioma Hemangioma of intra-abdominal structures Encounter for ultrasound to check growth ([facility])- Primary Encounter for routine screening for malformation using ultrasonics Diet controlled gestational diabetes mellitus (GDM) in third trimester ([facility]) 32 weeks gestation of ([facility]) state, incidental Diet controlled gestational diabetes mellitus (GDM) in third trimester ([facility])- Primary History of maternal fourth degree perineal laceration, currently (HCC) with other poor obstetric history Supervision of high risk in third trimester (HCC) Unspecified high-risk Obesity affecting in second trimester, unspecified obesity type ([facility]) 32 weeks gestation of ([facility]) state, incidental [facility] [place] [facility]* Diagnosis Pre-op evaluation- Primary Preoperative examination, unspecified Acute deep vein thrombosis (DVT) of popliteal vein of right lower extremity ([facility]) Vapes nicotine containing substance SAMAN (generalized anxiety disorder) Generalized anxiety disorder Acute deep vein thrombosis (DVT) of right upper extremity, unspecified vein ([facility]) History of gastroesophageal reflux (GERD) Personal history of other diseases of digestive system Class 2 obesity without serious comorbidity with body mass index (BMI) of 36.0 to 36.9 in adult, unspecified obesity type History of gestational diabetes in prior , currently ([facility])- Primary with other poor obstetric history History of maternal fourth degree perineal laceration, currently ([facility]) with other poor obstetric history Acute deep vein thrombosis (DVT) of right upper extremity, unspecified vein ([facility]) Rectovaginal fistula Digestive-genital tract fistula, female Obesity affecting in second trimester, unspecified obesity type ([facility]) History of forceps delivery in prior , currently ([facility]) with other poor obstetric history Liver hemangioma Hemangioma of intra-abdominal structures Diet controlled gestational diabetes mellitus (GDM) in third trimester ([facility])- Primary History of maternal fourth degree perineal laceration, currently ([facility]) with other poor obstetric history Supervision of high risk in third trimester ([facility]) Unspecified high-risk Obesity affecting in second trimester, unspecified obesity type ([facility]) 32 weeks gestation of ([facility]) state, incidental Decreased movements in third trimester, single or unspecified fetus ([facility])- Primary documented [facility] [place] [facility]* Diagnosis Pre-op evaluation- Primary Preoperative examination, unspecified Acute deep vein thrombosis (DVT) of popliteal vein of right lower extremity ([facility]) Vapes nicotine containing substance SAMAN (generalized anxiety disorder) Generalized anxiety disorder Acute deep vein thrombosis (DVT) of right upper extremity, unspecified vein ([facility]) History of gastroesophageal reflux (GERD) Personal history [...] (DVT) of right upper extremity, unspecified vein ([facility]) Rectovaginal fistula Digestive-genital tract fistula, female Obesity affecting in second trimester, unspecified obesity type ([facility]) History of forceps delivery in prior , currently (HCC) with other poor obstetric history Liver hemangioma Hemangioma of intra-abdominal structures Diet controlled gestational diabetes mellitus (GDM) in third trimester ([facility])- Primary History of maternal fourth degree perineal laceration, currently ([facility]) with other poor obstetric history Supervision of high risk in third trimester ([facility]) Unspecified high-risk Obesity affecting in second trimester, unspecified obesity type ([facility]) 32 weeks gestation of ([facility]) state, incidental Supervision of high risk in third trimester ([facility])- Primary Unspecified high-risk Diet controlled gestational diabetes mellitus (GDM) in third trimester ([facility]) History of maternal fourth degree perineal laceration, currently ([facility]) with other poor obstetric history Obesity affecting in second trimester, unspecified obesity type ([facility]) * Assessment & Plan Note - Topher Mccord MD - 02/15/2025 11:05 AM EDTAssociated Problem(s): Diet controlled gestational diabetes mellitus (GDM) in third trimester ([facility]) - importance of having BS log to review d/w patient- advised needs to bring to next appt. Orders: URINE OB DIP B/O * Assessment & Plan Note - Topher Mccord MD - 02/15/2025 11:05 AM EDTAssociated Problem(s): History of maternal fourth degree perineal laceration, currently ([facility]) - primary cs planned Orders: URINE OB DIP B/O * Assessment & Plan Note - Topher Mccord MD - 02/15/2025 11:05 AM EDTAssociated Problem(s): Obesity complicating , second trimester ([facility]) - NSTs weekly Orders: URINE OB DIP B/O documented in this [facility] [place] [facility]* Diagnosis Pre-op evaluation- Primary Preoperative examination, unspecified Acute deep vein thrombosis (DVT) of popliteal vein of right lower extremity ([facility]) Vapes nicotine containing substance SAMAN (generalized anxiety disorder) Generalized anxiety disorder Acute deep vein thrombosis (DVT) of right upper extremity, unspecified vein ([facility]) History of gastroesophageal reflux (GERD) Personal history of other diseases of digestive system Class 2 obesity without serious comorbidity with body mass index (BMI) of 36.0 to 36.9 in adult, unspecified obesity type History of gestational diabetes in prior , currently ([facility])- Primary with other poor obstetric history History of maternal fourth degree perineal laceration, currently ([facility]) with other poor obstetric history Acute deep vein thrombosis (DVT) of right upper extremity, unspecified vein ([facility]) Rectovaginal fistula Digestive-genital tract fistula, female Obesity affecting in second trimester, unspecified obesity type ([facility]) History of forceps delivery in prior , currently ([facility]) with other poor obstetric history Liver hemangioma Hemangioma of intra-abdominal structures Diet controlled gestational diabetes mellitus (GDM) in third trimester ([facility])- Primary History of maternal fourth degree perineal laceration, currently ([facility]) with other poor obstetric history Supervision of high risk in third trimester ([facility]) Unspecified high-risk Obesity affecting in second trimester, unspecified obesity type (HCC) 32 weeks gestation of (HCC) state, incidental Supervision of high risk in third trimester (HCC)- Primary Unspecified high-risk Diet controlled gestational diabetes mellitus (GDM) in third trimester (HCC) History of maternal fourth degree perineal laceration, currently (HCC) with other poor obstetric history Obesity affecting in second trimester, unspecified obesity type (HCC) Supervision of high risk in third trimester (HCC)- Primary Unspecified high-risk Insulin controlled gestational diabetes mellitus (GDM) in third trimester (HCC) History of maternal fourth degree perineal laceration, currently (HCC) with other poor obstetric history Obesity affecting in second trimester, unspecified obesity type ([facility]) * Assessment & Plan Note - Topher Mccord MD - 02/16/2025 12:29 PM EDTAssociated Problem(s): History of maternal fourth degree perineal laceration, currently ([facility]) Primary cs scheduled at [facility] for h/o ileostomy with previous 4th degree * Assessment & Plan Note - Topher Mccord MD - 02/16/2025 12:29 PM EDTAssociated Problem(s): Insulin controlled gestational diabetes mellitus (GDM) in third trimester ([facility]) Decision to start Insulin based on BS log today- will start 12 units NPH at night and morning - pt counseled on proper administration. - pt to follow up with [facility] Thursday Orders: insulin NPH subcutaneous pen; Inject 12 Units subcutaneously two times a day at 6 am and 9 pm. * Assessment & Plan Note - Topher Mccord MD - 02/16/2025 11:46 AM EDTAssociated Problem(s): Obesity complicating , second trimester (HCC) documented [facility] [place] [facility]* Diagnosis Pre-op evaluation- Primary Preoperative examination, unspecified Acute deep vein thrombosis (DVT) of popliteal vein of right lower extremity ([facility]) Vapes nicotine containing substance SAMAN (generalized anxiety [...] of gestational diabetes in prior , currently ([facility])- Primary with other poor obstetric history History of maternal fourth degree perineal laceration, currently ([facility]) with other poor obstetric history Acute deep vein thrombosis (DVT) of right upper extremity, unspecified vein ([facility]) Rectovaginal fistula Digestive-genital tract fistula, female Obesity affecting in second trimester, unspecified obesity type ([facility]) History of forceps delivery in prior , currently ([facility]) with other poor obstetric history Liver hemangioma Hemangioma of intra-abdominal structures Diet controlled gestational diabetes mellitus (GDM) in third trimester ([facility])- Primary History of maternal fourth degree perineal laceration, currently ([facility]) with other poor obstetric history Supervision of high risk in third trimester ([facility]) Unspecified high-risk Obesity affecting in second trimester, unspecified obesity type ([facility]) 32 weeks gestation of ([facility]) state, incidental Supervision of high risk in third trimester ([facility])- Primary Unspecified high-risk Diet controlled gestational diabetes mellitus (GDM) in third trimester ([facility]) History of maternal fourth degree perineal laceration, currently ([facility]) with other poor obstetric history Obesity affecting in second trimester, unspecified obesity type ([facility]) Supervision of high risk in third trimester ([facility])- Primary Unspecified high-risk Insulin controlled gestational diabetes mellitus (GDM) in third trimester ([facility]) History of maternal fourth degree perineal laceration, currently (HCC) with other poor obstetric history Obesity affecting in second trimester, unspecified obesity type ([facility]) Gestational diabetes mellitus (GDM) requiring insulin ([facility])- Primary Diet controlled gestational diabetes mellitus (GDM) in third trimester ([facility]) History of maternal fourth degree perineal laceration, currently ([facility]) with other poor obstetric history Supervision of high risk in third trimester ([facility]) Unspecified high-risk Obesity affecting in second trimester, unspecified obesity type ([facility]) Insulin controlled gestational diabetes mellitus (GDM) in third trimester ([facility]) 34 weeks gestation of ([facility]) state, incidental Insulin controlled gestational diabetes mellitus (GDM) in third trimester ([facility]) [facility] Pre-op evaluation- Primary Preoperative examination, unspecified Acute deep vein thrombosis (DVT) of popliteal vein of right lower extremity ([facility]) Vapes nicotine containing substance SAMAN (generalized anxiety disorder) Generalized anxiety disorder Acute deep vein thrombosis (DVT) of right upper extremity, unspecified vein ([facility]) History of gastroesophageal reflux (GERD) Personal history of other diseases of digestive system Class 2 obesity without serious comorbidity with body mass index (BMI) of 36.0 to 36.9 in adult, unspecified obesity type History of gestational diabetes in prior , currently ([facility])- Primary with other poor obstetric history History of maternal fourth degree perineal laceration, currently ([facility]) with other poor obstetric history Acute deep vein thrombosis (DVT) of right upper extremity, unspecified vein ([facility]) Rectovaginal fistula Digestive-genital tract fistula, female Obesity affecting in second trimester, unspecified obesity type ([facility]) History of forceps delivery in prior , currently ([facility]) with other poor obstetric history Liver hemangioma Hemangioma of intra-abdominal structures Diet controlled gestational diabetes mellitus (GDM) in third trimester ([facility])- Primary History of maternal fourth degree perineal laceration, currently ([facility]) with other poor obstetric history Supervision of high risk in third trimester ([facility]) Unspecified high-risk Obesity affecting in second trimester, unspecified obesity type ([facility]) 32 weeks gestation of ([facility]) state, incidental Supervision of high risk in third trimester ([facility])- Primary Unspecified high-risk Diet controlled gestational diabetes mellitus (GDM) in third trimester ([facility]) History of maternal fourth degree perineal laceration, currently ([facility]) with other poor obstetric history Obesity affecting in second trimester, unspecified obesity type ([facility]) Supervision of high risk in third trimester ([facility])- Primary Unspecified high-risk Insulin controlled gestational diabetes mellitus (GDM) in third trimester ([facility]) History of maternal fourth degree perineal laceration, currently ([facility]) with other poor obstetric history Obesity affecting in second trimester, unspecified obesity type ([facility]) Gestational diabetes mellitus (GDM) requiring insulin ([facility])- Primary 34 weeks gestation of ([facility]) state, incidental Insulin controlled gestational diabetes mellitus (GDM) in third trimester ([facility]) [facility] [place] [facility] Diagnosis Pre-op evaluation- Primary Preoperative examination, unspecified Acute deep vein thrombosis (DVT) of popliteal vein of right lower extremity ([facility]) Vapes nicotine containing substance SAMAN (generalized anxiety disorder) Generalized anxiety disorder Acute deep vein thrombosis (DVT) of right upper extremity, unspecified vein ([facility]) History of gastroesophageal reflux (GERD) Personal history of other diseases of digestive system Class 2 obesity without serious comorbidity with body mass index (BMI) of 36.0 to 36.9 in adult, unspecified obesity type History of gestational diabetes in prior , currently ([facility])- Primary with other poor obstetric history History of maternal fourth degree perineal laceration, currently ([facility]) with other poor obstetric history Acute deep vein thrombosis (DVT) of right upper extremity, unspecified vein ([facility]) Rectovaginal fistula Digestive-genital tract fistula, female Obesity affecting in second trimester, unspecified obesity type ([facility]) History of forceps delivery in prior , currently ([facility]) with other poor obstetric history Liver hemangioma Hemangioma of intra-abdominal structures Diet controlled gestational diabetes mellitus (GDM) in third trimester ([facility])- Primary History of maternal fourth degree perineal laceration, currently ([facility]) with other poor obstetric history Supervision of high risk in third trimester ([facility]) Unspecified high-risk Obesity affecting in second trimester, unspecified obesity type ([facility]) 32 weeks gestation of ([facility]) state, incidental Supervision of high risk in third trimester ([facility])- Primary Unspecified high-risk Diet controlled gestational diabetes mellitus (GDM) in third trimester ([facility]) History of maternal fourth degree perineal laceration, currently ([facility]) with other poor obstetric history Obesity affecting in second trimester, unspecified obesity type ([facility]) Supervision of high risk in third trimester ([facility])- Primary Unspecified high-risk Insulin controlled gestational diabetes mellitus (GDM) in third trimester ([facility]) History of maternal fourth degree perineal laceration, currently ([facility]) with other poor obstetric history Obesity affecting in second trimester, unspecified obesity type ([facility]) Diet controlled gestational diabetes mellitus (GDM) in third trimester ([facility])- Primary Supervision of high risk in third trimester ([facility]) Unspecified high-risk Gestational diabetes mellitus (GDM) requiring insulin ([facility]) Insulin controlled gestational diabetes mellitus (GDM) in third trimester ([facility]) [facility] [place] [facility]* Diagnosis Pre-op evaluation- Primary Preoperative examination, unspecified Acute deep vein thrombosis (DVT) of popliteal vein of right lower extremity ([facility]) Vapes nicotine containing substance SAMAN (generalized anxiety disorder) Generalized anxiety disorder Acute deep vein thrombosis (DVT) of right upper extremity, unspecified vein ([facility]) History of gastroesophageal reflux (GERD) Personal history of other diseases of digestive system Class 2 obesity without serious comorbidity with body mass index (BMI) of 36.0 to 36.9 in adult, unspecified obesity type History of gestational diabetes in prior , currently ([facility])- Primary with other poor obstetric history History of maternal fourth degree perineal laceration, currently ([facility]) with other poor obstetric history Acute deep vein thrombosis (DVT) of right upper extremity, unspecified vein ([facility]) Rectovaginal fistula Digestive-genital tract fistula, female Obesity affecting in second trimester, unspecified obesity type ([facility]) History of forceps delivery in prior , currently ([facility]) with other poor obstetric history Liver hemangioma Hemangioma of intra-abdominal structures Elevated glucose tolerance test- Primary Impaired glucose tolerance test Diet controlled gestational diabetes mellitus (GDM) in third trimester ([facility])- Primary History of maternal fourth degree perineal laceration, currently ([facility]) with other poor obstetric history Supervision of high risk in third trimester ([facility]) Unspecified high-risk Obesity affecting in second trimester, unspecified obesity type ([facility]) 32 weeks gestation of ([facility]) state, incidental Supervision of high risk in third trimester ([facility])- Primary Unspecified high-risk Diet controlled gestational diabetes mellitus (GDM) in third trimester ([facility]) History of maternal fourth degree perineal laceration, currently ([facility]) with other poor obstetric history Obesity affecting in second trimester, unspecified obesity type ([facility]) Supervision of high risk in third trimester ([facility])- Primary Unspecified high-risk Insulin controlled gestational diabetes mellitus (GDM) in third trimester ([facility]) History of maternal fourth degree perineal laceration, currently ([facility]) with other poor obstetric history Obesity affecting in second trimester, unspecified obesity type ([facility]) Insulin controlled gestational diabetes mellitus (GDM) in third trimester ([facility]) [facility] [place] [facility]* Diagnosis Pre-op evaluation- Primary Preoperative examination, unspecified Acute deep vein thrombosis (DVT) of popliteal vein of right lower extremity ([facility]) Vapes nicotine containing substance SAMAN (generalized anxiety disorder) Generalized anxiety disorder Acute deep vein thrombosis (DVT) of right upper extremity, unspecified vein ([facility]) History of gastroesophageal reflux (GERD) Personal history of other diseases of digestive system Class 2 obesity without serious comorbidity with body mass index (BMI) of 36.0 to 36.9 in adult, unspecified obesity type History of gestational diabetes in prior , currently ([facility])- Primary with other poor obstetric history History of maternal fourth degree perineal laceration, currently ([facility]) with other poor obstetric history Acute deep vein thrombosis (DVT) of right upper extremity, unspecified vein ([facility]) Rectovaginal fistula Digestive-genital tract fistula, female Obesity affecting in second trimester, unspecified obesity type ([facility]) History of forceps delivery in prior , currently ([facility]) with other poor obstetric history Liver hemangioma Hemangioma of intra-abdominal structures Diet controlled gestational diabetes mellitus (GDM) in third trimester ([facility])- Primary History of maternal fourth degree perineal laceration, currently ([facility]) with other poor obstetric history Supervision of high risk in third trimester ([facility]) Unspecified high-risk Obesity affecting in second trimester, unspecified obesity type ([facility]) 32 weeks gestation of ([facility]) state, incidental Supervision of high risk in third trimester ([facility])- Primary Unspecified high-risk Diet controlled gestational diabetes mellitus (GDM) in third trimester ([facility]) History of maternal fourth degree perineal laceration, currently ([facility]) with other poor obstetric history Obesity affecting in second trimester, unspecified obesity type ([facility]) Supervision of high risk in third trimester ([facility])- Primary Unspecified high-risk Insulin controlled gestational diabetes mellitus (GDM) in third trimester ([facility]) History of maternal fourth degree perineal laceration, currently ([facility]) with other poor obstetric history Obesity affecting in second trimester, unspecified obesity type ([facility]) Supervision of high risk in third trimester ([facility])- Primary Unspecified high-risk Insulin controlled gestational diabetes mellitus (GDM) in third trimester ([facility]) History of maternal fourth degree perineal laceration, currently ([facility]) with other poor obstetric history Obesity affecting in second trimester, unspecified obesity type ([facility]) 35 weeks gestation of ([facility]) state, incidental Encounter for ultrasound to check growth ([facility])- Primary Encounter for routine screening for malformation using ultrasonics 36 weeks gestation of ([facility]) state, incidental Insulin controlled gestational diabetes mellitus (GDM) in third trimester ([facility]) Obesity affecting in second trimester, unspecified obesity type ([facility]) Insulin controlled gestational diabetes mellitus (GDM) in third trimester ([facility]) [facility] [place] [facility]* Diagnosis Pre-op evaluation- Primary Preoperative examination, unspecified Acute deep vein thrombosis (DVT) of popliteal vein of right lower extremity ([facility]) Vapes nicotine containing substance SAMAN (generalized anxiety disorder) Generalized anxiety disorder Acute deep vein thrombosis (DVT) of right upper extremity, unspecified vein ([facility]) History of gastroesophageal reflux (GERD) Personal history of other diseases of digestive system Class 2 obesity without serious comorbidity with body mass index (BMI) of 36.0 to 36.9 in adult, unspecified obesity type History of gestational diabetes in prior , currently ([facility])- Primary with other poor obstetric history History of maternal fourth degree perineal laceration, currently ([facility]) with other poor obstetric history Acute deep vein thrombosis (DVT) of right upper extremity, unspecified vein ([facility]) Rectovaginal fistula Digestive-genital tract fistula, female Obesity affecting in second trimester, unspecified obesity type ([facility]) History of forceps delivery in prior , currently ([facility]) with other poor obstetric history Liver hemangioma Hemangioma of intra-abdominal structures Diet controlled gestational diabetes mellitus (GDM) in third trimester ([facility])- Primary History of maternal fourth degree perineal laceration, currently ([facility]) with other poor obstetric history Supervision of high risk in third trimester ([facility]) Unspecified high-risk Obesity affecting in second trimester, unspecified obesity type ([facility]) 32 weeks gestation of ([facility]) state, incidental Supervision of high risk in third trimester ([facility])- Primary Unspecified high-risk Diet controlled gestational diabetes mellitus (GDM) in third trimester ([facility]) History of maternal fourth degree perineal laceration, currently ([facility]) with other poor obstetric history Obesity affecting in second trimester, unspecified obesity type ([facility]) Supervision of high risk in third trimester ([facility])- Primary Unspecified high-risk Insulin controlled gestational diabetes mellitus (GDM) in third trimester ([facility]) History of maternal fourth degree perineal laceration, currently ([facility]) with other poor obstetric history Obesity affecting in second trimester, unspecified obesity type ([facility]) Supervision of high risk in third trimester ([facility])- Primary Unspecified high-risk Insulin controlled gestational diabetes mellitus (GDM) in third trimester ([facility]) History of maternal fourth degree perineal laceration, currently ([facility]) with other poor obstetric history Obesity affecting in second trimester, unspecified obesity type ([facility]) 35 weeks gestation of ([facility]) state, incidental Supervision of high risk in third trimester ([facility])- Primary Unspecified high-risk Insulin controlled gestational diabetes mellitus (GDM) in third trimester ([facility]) History of maternal fourth degree perineal laceration, currently ([facility]) with other poor obstetric history Obesity affecting in second trimester, unspecified obesity type ([facility]) 36 weeks gestation of ([facility]) state, incidental Insulin controlled gestational diabetes mellitus (GDM) in third trimester ([facility]) [facility] evaluation- Primary Preoperative examination, unspecified Acute deep vein thrombosis (DVT) of popliteal vein of right lower extremity ([facility]) Vapes nicotine containing substance SAMAN (generalized anxiety disorder) Generalized anxiety disorder Acute deep vein thrombosis (DVT) of right upper extremity, unspecified vein ([facility]) History of gastroesophageal reflux (GERD) Personal history of other diseases of digestive system Class 2 obesity without serious comorbidity with body mass index (BMI) of 36.0 to 36.9 in adult, unspecified obesity type History of gestational diabetes in prior , currently ([facility])- Primary with other poor obstetric history History of maternal fourth degree perineal laceration, currently ([facility]) with other poor obstetric history Acute deep vein thrombosis (DVT) of right upper extremity, unspecified vein ([facility]) Rectovaginal fistula Digestive-genital tract fistula, female Obesity affecting in second trimester, unspecified obesity type ([facility]) History of forceps delivery in prior , currently ([facility]) with other poor obstetric history Liver hemangioma Hemangioma of intra-abdominal structures Diet controlled gestational diabetes mellitus (GDM) in third trimester ([facility])- Primary History of maternal fourth degree perineal laceration, currently ([facility]) with other poor obstetric history Supervision of high risk in third trimester ([facility]) Unspecified high-risk Obesity affecting in second trimester, unspecified obesity type ([facility]) 32 weeks gestation of ([facility]) state, incidental Supervision of high risk in third trimester ([facility])- Primary Unspecified high-risk Diet controlled gestational diabetes mellitus (GDM) in third trimester ([facility]) History of maternal fourth degree perineal laceration, currently ([facility]) with other poor obstetric history Obesity affecting in second trimester, unspecified obesity type ([facility]) Supervision of high risk in third trimester ([facility])- Primary Unspecified high-risk Insulin controlled gestational diabetes mellitus (GDM) in third trimester ([facility]) History of maternal fourth degree perineal laceration, currently ([facility]) with other poor obstetric history Obesity affecting in second trimester, unspecified obesity type ([facility]) Supervision of high risk in third trimester ([facility])- Primary Unspecified high-risk Insulin controlled gestational diabetes mellitus (GDM) in third trimester ([facility]) History of maternal fourth degree perineal laceration, currently ([facility]) with other poor obstetric history Obesity affecting in second trimester, unspecified obesity type ([facility]) 35 weeks gestation of ([facility]) state, incidental 37 weeks gestation of ([facility])- Primary state, incidental Supervision of high risk in third trimester ([facility]) Unspecified high-risk Insulin controlled gestational diabetes mellitus (GDM) in third trimester ([facility]) Obesity affecting in second trimester, unspecified obesity type ([facility]) 38 weeks gestation of ([facility])- Primary state, incidental Supervision of high risk in third trimester ([facility]) Unspecified high-risk Insulin controlled gestational diabetes mellitus (GDM) in third trimester ([facility]) Obesity affecting in second trimester, unspecified obesity type ([facility]) Insulin controlled gestational diabetes mellitus (GDM) in third trimester ([facility]) [facility]- Primary Preoperative examination, unspecified Acute deep vein thrombosis (DVT) of popliteal vein of right lower extremity ([facility]) Vapes nicotine containing substance SAMAN (generalized anxiety disorder) Generalized anxiety disorder Acute deep vein thrombosis (DVT) of right upper extremity, unspecified vein ([facility]) History of gastroesophageal reflux (GERD) Personal history of other diseases of digestive system Class 2 obesity without serious comorbidity with body mass index (BMI) of 36.0 to 36.9 in adult, unspecified obesity type History of gestational diabetes in prior , currently ([facility])- Primary with other poor obstetric history History of maternal fourth degree perineal laceration, currently ([facility]) with other poor obstetric history Acute deep vein thrombosis (DVT) of right upper extremity, unspecified vein ([facility]) Rectovaginal fistula Digestive-genital tract fistula, female Obesity affecting in second trimester, unspecified obesity type ([facility]) History of forceps delivery in prior , currently ([facility]) with other poor obstetric history Liver hemangioma Hemangioma of intra-abdominal structures Diet controlled gestational diabetes mellitus (GDM) in third trimester ([facility])- Primary History of maternal fourth degree perineal laceration, currently ([facility]) with other poor obstetric history Supervision of high risk in third trimester ([facility]) Unspecified high-risk Obesity affecting in second trimester, unspecified obesity type ([facility]) 32 weeks gestation of ([facility]) state, incidental Supervision of high risk in third trimester ([facility])- Primary Unspecified high-risk Diet controlled gestational diabetes mellitus (GDM) in third trimester ([facility]) History of maternal fourth degree perineal laceration, currently ([facility]) with other poor obstetric history Obesity affecting in second trimester, unspecified obesity type ([facility]) Supervision of high risk in third trimester ([facility])- Primary Unspecified high-risk Insulin controlled gestational diabetes mellitus (GDM) in third trimester ([facility]) History of maternal fourth degree perineal laceration, currently ([facility]) with other poor obstetric history Obesity affecting in second trimester, unspecified obesity type ([facility]) Supervision of high risk in third trimester ([facility])- Primary Unspecified high-risk Insulin controlled gestational diabetes mellitus (GDM) in third trimester ([facility]) History of maternal fourth degree perineal laceration, currently ([facility]) with other poor obstetric history Obesity affecting in second trimester, unspecified obesity type (HCC) 35 weeks gestation of ([facility]) state, incidental 37 weeks gestation of ([facility])- Primary state, incidental Supervision of high risk in third trimester ([facility]) Unspecified high-risk Insulin controlled gestational diabetes mellitus (GDM) in third trimester (HCC) Obesity affecting in second trimester, unspecified obesity type ([facility]) 38 weeks gestation of ([facility])- Primary state, incidental Supervision of high risk in third trimester ([facility]) Unspecified high-risk Insulin controlled gestational diabetes mellitus (GDM) in third trimester ([facility]) [facility] Pre-op evaluation- Primary Preoperative examination, unspecified Acute deep vein thrombosis (DVT) of popliteal vein of right lower extremity ([facility]) Vapes nicotine containing substance SAMAN (generalized anxiety disorder) Generalized anxiety disorder Acute deep vein thrombosis (DVT) of right upper extremity, unspecified vein ([facility]) History of gastroesophageal reflux (GERD) Personal history of other diseases of digestive system Class 2 obesity without serious comorbidity with body mass index (BMI) of 36.0 to 36.9 in adult, unspecified obesity type History of gestational diabetes in prior , currently ([facility])- Primary with other poor obstetric history History of maternal fourth degree perineal laceration, currently ([facility]) with other poor obstetric history Acute deep vein thrombosis (DVT) of right upper extremity, unspecified vein ([facility]) Rectovaginal fistula Digestive-genital tract fistula, female Obesity affecting in second trimester, unspecified obesity type ([facility]) History of forceps delivery in prior , currently ([facility]) with other poor obstetric history Liver hemangioma Hemangioma of intra-abdominal structures Diet controlled gestational diabetes mellitus (GDM) in third trimester ([facility])- Primary History of maternal fourth degree perineal laceration, currently ([facility]) with other poor obstetric history Supervision of high risk in third trimester ([facility]) Unspecified high-risk Obesity affecting in second trimester, unspecified obesity type ([facility]) 32 weeks gestation of ([facility]) state, incidental Supervision of high risk in third trimester ([facility])- Primary Unspecified high-risk Diet controlled gestational diabetes mellitus (GDM) in third trimester ([facility]) History of maternal fourth degree perineal laceration, currently ([facility]) with other poor obstetric history Obesity affecting in second trimester, unspecified obesity type (HCC) Supervision of high risk in third trimester (HCC)- Primary Unspecified high-risk Insulin controlled gestational diabetes mellitus (GDM) in third trimester (HCC) History of maternal fourth degree perineal laceration, currently (HCC) with other poor obstetric history Obesity affecting in second trimester, unspecified obesity type (HCC) Supervision of high risk in third trimester (HCC)- Primary Unspecified high-risk Insulin controlled gestational diabetes mellitus (GDM) in third trimester (HCC) History of maternal fourth degree perineal laceration, currently (HCC) with other poor obstetric history Obesity affecting in second trimester, unspecified obesity type (HCC) 35 weeks gestation of ([facility]) state, incidental 37 weeks gestation of ([facility])- Primary state, incidental Supervision of high risk in third trimester ([facility]) Unspecified high-risk Insulin controlled gestational diabetes mellitus (GDM) in third trimester ([facility]) Obesity affecting in second trimester, unspecified obesity type ([facility]) Insulin controlled gestational diabetes mellitus (GDM) in third trimester ([facility]) * Assessment & Plan Note - Tahmina Dumont MD - 03/14/2025 2:58 PM EDTAssociated Problem(s): Insulin controlled gestational diabetes mellitus (GDM) in third trimester ([facility]) She reports FBS in 80's and PPBS less than 138. She forgot her log today. Continue insulin. Orders: URINE OB DIP B/O * Assessment & Plan Note - Tahmina Dumont MD - 03/14/2025 1:54 PM EDTAssociated Problem(s): Obesity complicating , second trimester ([facility]) Orders: URINE OB DIP B/O [facility] Diagnosis Pre-op evaluation- Primary Preoperative examination, unspecified Acute deep vein thrombosis (DVT) of popliteal vein of right lower extremity ([facility]) Vapes nicotine containing substance SAMAN (generalized anxiety disorder) Generalized anxiety disorder Acute deep vein thrombosis (DVT) of right upper extremity, unspecified vein ([facility]) History of gastroesophageal reflux (GERD) Personal history of other diseases of digestive system Class 2 obesity without serious comorbidity with body mass index (BMI) of 36.0 to 36.9 in adult, unspecified obesity type History of gestational diabetes in prior , currently ([facility])- Primary with other poor obstetric history History of maternal fourth degree perineal laceration, currently ([facility]) with other poor obstetric history Acute deep vein thrombosis (DVT) of right upper extremity, unspecified vein ([facility]) Rectovaginal fistula Digestive-genital tract fistula, female Obesity affecting in second trimester, unspecified obesity type ([facility]) History of forceps delivery in prior , currently ([facility]) with other poor obstetric history Liver hemangioma Hemangioma of intra-abdominal structures Supervision of high risk in third trimester ([facility])- Primary Unspecified high-risk Insulin controlled gestational diabetes mellitus (GDM) in third trimester ([facility]) History of maternal fourth degree perineal laceration, currently ([facility]) with other poor obstetric history Obesity affecting in second trimester, unspecified obesity type ([facility]) care following delivery ([facility]) Routine follow-up SAMAN (generalized anxiety disorder) Generalized anxiety disorder Acute deep vein thrombosis (DVT) of right upper extremity ([facility]) Rectovaginal fistula Digestive-genital tract fistula, female Insulin controlled gestational diabetes mellitus (GDM) in third trimester ([facility]) ABLA (acute blood loss anemia) Supervision of high risk in third trimester ([facility])- Primary Unspecified high-risk Insulin controlled gestational diabetes mellitus (GDM) in third trimester ([facility]) History of maternal fourth degree perineal laceration, currently ([facility]) with other poor obstetric history Obesity affecting in second trimester, unspecified obesity type ([facility]) 35 weeks gestation of ([facility]) state, incidental 37 weeks gestation of ([facility])- Primary state, incidental Supervision of high risk in third trimester ([facility]) Unspecified high-risk Insulin controlled gestational diabetes mellitus (GDM) in third trimester ([facility]) Obesity affecting in second trimester, unspecified obesity type ([facility]) care following delivery ([facility])- Primary Routine follow-up documented in this [facility] [place] [facility]* Diagnosis Pre-op evaluation- Primary Preoperative examination, unspecified Acute deep vein thrombosis (DVT) of popliteal vein of right lower extremity ([facility]) Vapes nicotine containing substance SAMAN (generalized anxiety disorder) Generalized anxiety disorder Acute deep vein thrombosis (DVT) of right upper extremity, unspecified vein ([facility]) History of gastroesophageal reflux (GERD) Personal history of other diseases of digestive system Class 2 obesity without serious comorbidity with body mass index (BMI) of 36.0 to 36.9 in adult, unspecified obesity type History of gestational diabetes in prior , currently ([facility])- Primary with other poor obstetric history History of maternal fourth degree perineal laceration, currently ([facility]) with other poor obstetric history Acute deep vein thrombosis (DVT) of right upper extremity, unspecified vein ([facility]) Rectovaginal fistula Digestive-genital tract fistula, female Obesity affecting in second trimester, unspecified obesity type ([facility]) History of forceps delivery in prior , currently ([facility]) with other poor obstetric history Liver hemangioma Hemangioma of intra-abdominal structures Supervision of high risk in third trimester ([facility])- Primary Unspecified high-risk Insulin controlled gestational diabetes mellitus (GDM) in third trimester ([facility]) History of maternal fourth degree perineal laceration, currently ([facility]) with other poor obstetric history Obesity affecting in second trimester, unspecified obesity type ([facility]) care following delivery ([facility]) Routine follow-up SAMAN (generalized anxiety disorder) Generalized anxiety disorder Acute deep vein thrombosis (DVT) of right upper extremity ([facility]) Rectovaginal fistula Digestive-genital tract fistula, female Insulin controlled gestational diabetes mellitus (GDM) in third trimester ([facility]) ABLA (acute blood loss anemia) Supervision of high risk in third trimester ([facility])- Primary Unspecified high-risk Insulin controlled gestational diabetes mellitus (GDM) in third trimester ([facility]) History of maternal fourth degree perineal laceration, currently ([facility]) with other poor obstetric history Obesity affecting in second trimester, unspecified obesity type ([facility]) 35 weeks gestation of ([facility]) state, incidental 37 weeks gestation of ([facility])- Primary state, incidental Supervision of high risk in third trimester ([facility]) Unspecified high-risk Insulin controlled gestational diabetes mellitus (GDM) in third trimester ([facility]) Obesity affecting in second trimester, unspecified obesity type ([facility]) care and examination ([facility])- Primary Routine follow-up documented in this encounter [facility] note* Diagnosis Pre-op evaluation- Primary Preoperative examination, unspecified Acute deep vein thrombosis (DVT) of popliteal vein of right lower extremity (HCC) Vapes nicotine containing substance SAMAN (generalized anxiety disorder) Generalized anxiety disorder Acute deep vein thrombosis (DVT) of right upper extremity, unspecified vein ([facility]) History of gastroesophageal reflux (GERD) Personal history of other diseases of digestive system Class 2 obesity without serious comorbidity with body mass index (BMI) of 36.0 to 36.9 in adult, unspecified obesity type History of gestational diabetes in prior , currently ([facility])- Primary with other poor obstetric history History of maternal fourth degree perineal laceration, currently ([facility]) with other poor obstetric history Acute deep vein thrombosis (DVT) of right upper extremity, unspecified vein ([facility]) Rectovaginal fistula Digestive-genital tract fistula, female Obesity affecting in second trimester, unspecified obesity type ([facility]) History of forceps delivery in prior , currently ([facility]) with other poor obstetric history Liver hemangioma Hemangioma of intra-abdominal structures care following delivery ([facility]) Routine follow-up SAMAN (generalized anxiety disorder) Generalized anxiety disorder Acute deep vein thrombosis (DVT) of right upper extremity ([facility]) Rectovaginal fistula Digestive-genital tract fistula, female ABLA (acute blood loss anemia) care and examination ([facility])- Primary Routine follow-up Encounter for initial prescription of intrauterine contraceptive device (IUD) documented in this encounter [facility] note* Diagnosis Pre-op evaluation- Primary Preoperative examination, unspecified Acute deep vein thrombosis (DVT) of popliteal vein of right lower extremity ([facility]) Vapes nicotine containing substance SAMAN (generalized anxiety disorder) Generalized anxiety disorder Acute deep vein thrombosis (DVT) of right upper extremity, unspecified vein ([facility]) History of gastroesophageal reflux (GERD) Personal history of other diseases of digestive system Class 2 obesity without serious comorbidity with body mass index (BMI) of 36.0 to 36.9 in adult, unspecified obesity type History of gestational diabetes in prior , currently ([facility])- Primary with other poor obstetric history History of maternal fourth degree perineal laceration, currently ([facility]) with other poor obstetric history Acute deep vein thrombosis (DVT) of right upper extremity, unspecified vein ([facility]) Rectovaginal fistula Digestive-genital tract fistula, female Obesity affecting in second trimester, unspecified obesity type (HCC) History of forceps delivery in prior , currently (HCC) with other poor obstetric history Liver hemangioma Hemangioma of intra-abdominal structures care following delivery ([facility]) Routine follow-up SAMAN (generalized anxiety disorder) Generalized anxiety disorder Acute deep vein thrombosis (DVT) of right upper extremity (HCC) Rectovaginal fistula Digestive-genital tract fistula, female ABLA (acute blood loss anemia) Encounter for contraceptive management, unspecified type- Primary documented in this encounter [facility] note* Diagnosis Pre-op evaluation- Primary Preoperative examination, [...] Hemangioma of intra-abdominal structures care following delivery ([facility]) Routine follow-up SAMAN (generalized anxiety disorder) Generalized anxiety disorder Acute deep vein thrombosis (DVT) of right upper extremity (HCC) Rectovaginal fistula Digestive-genital tract fistula, female ABLA (acute blood loss anemia) Superficial thrombophlebitis of right upper extremity- Primary documented in this encounter [facility] note* Diagnosis Pre-op evaluation- Primary Preoperative examination, [...] Hemangioma of intra-abdominal structures care following delivery (HCC) Routine follow-up SAMAN (generalized anxiety disorder) Generalized anxiety disorder Acute deep vein thrombosis (DVT) of right upper extremity (HCC) Rectovaginal fistula Digestive-genital tract fistula, female ABLA (acute blood loss anemia) Screening for STD (sexually transmitted disease)- Primary Screening examination for venereal disease Dysuria documented [facility] encounter [facility] Author Christofer Nj [facility] May 18, 2023 10:30am Note Date/Time May 18, 2023 10: 30am [facility] Medical Records Department [address] [place] [address] H&P Exam - Surgical 05/18/23 1027 MR#: [id number] Acct: [id number] Name: LEELEE ZAMORA Rep #:[id number] : [...] with urination and blood in her urine. [facility] Medical History ADHD (attention deficit hyperactivity disorder) [...] 77.8 H, Lymph % (Auto) 14.8 L, [place] % (Auto) 6.0, Eos % (Auto) 0.5, [...] with the plan. Christofer Nj MD Pager: [facility] [address] [place] [address], [address] [place] [address] Office: 05/18/23 1030 <Electronically signed by Christofer Nj MD> Cosigner Signature (if applicable): CC: Dr. Christofer Nj MD; Dr. Alfredo Barroso MD~ Signed [facility] Work Phone: History of Present illness Narrative* 27 yo s/p perineoplasty and rectocele repair. She is doing well, had significant pain, but doing okwith pain meds. Not taking them anymore. * Still having soft BM's. Has had to lift her daughter, needs more help at home. [id number] Work Phone: Hospital course Narrative No data available for this section [facility] Hospital Discharge instructions* Instructions* Danii Thomason DO - 05/17/2021 Please follow your post operative care instructions given to you by your Clinical Case Manager Oncologist's office at your pre operative visit. Please call the office with questions or concerns and be sure to follow up at your scheduled post operative visit. [email or web address] Work Phone: Hospital Discharge instructions* Instructions* Shelley [...] sent through Care Everywhere. * Pelvic Pain (Italian) documented in this [facility] Work Phone: Hospital Discharge instructions No data available for this section [facility] Hospital Discharge instructions Additional Instructions Plenty of fluids and rest. Your labs were unremarkable. Your blood counts were normal. Urine showed no signs of infection. You are not . Follow-up with the [facility] at the [facility] for further gynecology evaluation.[facility] Work Phone: Hospital Discharge instructions Additional Instructions Please follow-up with your POT ROOM TAPPER as we discussed. Until you can have confirmed placement of your IUD by your POT ROOM TAPPER please either practice abstinence or use a secondary control method such as condoms.[facility] Work Phone: Hospital Discharge instructions Additional Instructions Antibiotics as directed. Return with fever, new or worsening symptoms.[facility] Work Phone: Hospital Discharge instructionsAdditional Instructions Watch the wound for signs of infection including redness, drainage or warmth. Your evaluation in the Emergency Department did not reveal any acute reason for admission. However, I want to emphasize that you may be early in the course of a disease process or illness even if it is not present. For this reason you should follow-up within 24 hours for reevaluation with either your primary care physician or if necessary back here in the Emergency Department. You should return to the Emergency Department immediately if your symptoms worsen or new symptoms develop.[facility] Work Phone: Instructions* Instruction Description Start Date CompletedPatient advised to follow-up with Primary Care Physician for BMI management. [facility] Work Phone: Progress note No data available for this section [facility] Reason for referral (narrative)* Outpatient Procedure (Routine) - Pending Review Specialty Diagnoses / Procedures Referred By Contac t Referred To Contact [facility] Diagnoses Pelvic floor dysfunction Rectal vaginal fistula Procedures [facility] ANORECTAL MANOMETRY ANORECTAL MANOMETRY Sandhya Carolina PA-C [address] [place] [address] [facility] [address] [id number] Referral ID Status Reason Start Date Expiration Date Visits Requested Visits Authorized [id number] Pending Review Auto-Generat ed Referral 3 08/05/[address] [facility] for referral (narrative)* Diagnostic Procedure Only (Routine) - Pending Review Specialty Diagnoses / Procedures Referred By Contac t Referred To Contact [facility] Diagnoses Menorrhagia with regular cycle Hirsutism Acne, unspecified acne type Procedures PELVIC US WHI US PELVIC NONOBSTETRIC REAL-TIME IMAGE COMPLETE Cooper Jordan PA-C [address] [place] [address] [facility] [address] [place] [address] Referral ID Status Reason Start Date Expiration Date Visits Requested Visits Authorized [id number] Pending Review Auto-Generat ed Referral 11/27/2023 11/26/[address] [facility] for referral (narrative)* Diagnostic Procedure Only (Routine) - Closed Specialty Diagnoses / Procedures Referred By Contac t Referred To Contact BR IMAGING Diagnoses Discharge from both nipples Procedures US BREAST LTD LEFT US BREAST UNI REAL TIME WITH IMAGE LIMITED Chetna Nettles APRN.CNP [address] [place] [address] [facility] [address] [place] [phone] Referral ID Status Reason Start Date Expiration Date V isits Requested Visits Authorized [id number] Closed Auto-Generate d Referral 11/27/2023 10/11/2024 1 1 * Diagnostic Procedure Only (Routine) - Closed Specialty Diagnoses / Procedures Referred By Contac t Referred To Contact BR IMAGING Diagnoses Discharge from both nipples Procedures US BREAST LTD RIGHT US BREAST UNI REAL TIME WITH IMAGE LIMITED Chetna Nettles APRN.CNP [address] [place] [address] [facility] Imaging [address] [place] [address] Referral ID Status Reason Start Date Expiration Date V isits Requested Visits Authorized [id number] Closed Auto-Generate d Referral 11/27/2023 10/11/[address] [facility] for referral (narrative)* Diagnostic Procedure Only (Routine) - New Request Specialty Diagnoses / Procedures Referred By Contac t Referred To Contact [facility] Diagnoses Menorrhagia with irregular cycle Procedures PELVIC US WHI US PELVIC NONOBSTETRIC REAL-TIME IMAGE COMPLETE Darryl Pedro APRN.WALKING DRAGLINE OPERATOR [address] [place] [address] [facility] [address] [place] [address] Referral ID Status Reason Start Date Expiration Date Visits Requested Visits Authorized [id number] New Request Auto-Generat ed Referral 05/02/2024 05/02/[address] [facility] for referral (narrative)* Diagnostic Procedure Only (Routine) - Closed Specialty Diagnoses / Procedures Referred By Contac t Referred To Contact BR IMAGING Diagnoses Discharge from both nipples Procedures US BREAST LTD LEFT US BREAST UNI REAL TIME WITH IMAGE LIMITED Chetna Nettles APRN.CNP [address] [place] [address] [facility] [address] [place] [phone] Referral ID Status Reason Start Date Expiration Date V isits Requested Visits Authorized [id number] Closed Auto-Generate d Referral 11/27/2023 10/11/2024 1 1 * Diagnostic Procedure Only (Routine) - Closed Specialty Diagnoses / Procedures Referred By Contac t Referred To Contact BR IMAGING Diagnoses Discharge from both nipples Procedures US BREAST LTD RIGHT US BREAST UNI REAL TIME WITH IMAGE LIMITED Chetna Nettles APRN.CNP [address] [place] [address] [facility] Imaging [address] [place] [address] Referral ID Status Reason Start Date Expiration Date V isits Requested Visits Authorized [id number] Closed Auto-Generate d Referral 11/27/2023 10/11/[address] [facility] for referral (narrative)* Diagnostic Procedure Only (Urgent) - Closed Specialty Diagnoses / Procedures Referred By Contac t Referred To Contact XR IMAGING Diagnoses Acute pain of left shoulder Procedures XR SHOULDER GENERAL 3V OR MORE AP/TRUE AP/OTHER LEFT RADEX SHOULDER COMPLETE MINIMUM 2 VIEWS Roverto Ag APRN.WALKING DRAGLINE OPERATOR [address] [place] [address] [place] [id number] Referral ID Status Reason Start Date Expiration Date V isits Requested Visits Authorized [id number] Closed Auto-Generate d Referral 02/12/2023 03/13/[address] [facility] for referral (narrative)* Outpatient Procedure (Routine) - Authorized Specialty Diagnoses / Procedures Referred By Contac t Referred To Contact [facility] Diagnoses History of syncope Procedures ECG COMPLETE ECG ROUTINE ECG W/LEAST 12 LDS W/I&R Guille Trivedi MD [address] [place] [id number] [place] [address] Referral ID Status Reason Start Date Expiration Date Visits Requested Visits Authorized [id number] Authorized Auto-Generat ed Referral 07/13/2024 07/13/[address] [facility] for referral (narrative)* Diagnostic Procedure Only (Routine) - Authorized Specialty Diagnoses / Procedures Referred By Contac t Referred To Contact [facility] Diagnoses 7 weeks gestation of Procedures NUCHAL TRANSLUCENCY WHI US NUCHAL TRANSLUCENCY 1ST GESTATION Jammie Funes APRN.CNP [address] [place] [address] [place] [id number] Referral ID Status Reason Start Date Expiration Date Visits Requested Visits Authorized [id number] Authorized Auto-Generat ed Referral 08/18/2024 08/18/[address] [facility] for referral (narrative)* Diagnostic Procedure Only (Routine) - Authorized Specialty Diagnoses / Procedures Referred By Contac t Referred To Contact [facility] Diagnoses Supervision of high risk in second trimester Obesity affecting in second trimester, unspecified obesity type History of maternal fourth degree perineal laceration, currently Procedures OBSTETRIC ULTRASOUND WHI US PREG UTERUS AFTER 1ST TRIMEST GESTATION Tahmina Dumont MD [address] [place] [address] [address] Referral ID Status Reason Start Date Expiration Date Visits Requested Visits Authorized [id number] Authorized Auto-Generat ed Referral 10/20/2024 10/20/2025 1 1 * Consult, Test, Treat (Routine) - Authorized Specialty Diagnoses / Procedures Referred By Contac t Referred To Contact Diagnoses History of maternal fourth degree perineal laceration, currently Procedures CONSULT TO MATERNAL MEDI OFFICE/OUTPATIENT NEW HIGH MDM 60 MINUTES Tahmina Dumont MD [address] [place] [address] Referral ID Status Reason Start Date Expiration Date Visits Requested Visits Authorized [id number] Authorized PCP Requested Referral Auto-Generate d Referral 10/20/2024 10/20/[address] [facility] for referral (narrative)* Diagnostic Procedure Only (Routine) - Authorized Specialty Diagnoses / Procedures Referred By Contac t Referred To Contact [facility] Diagnoses Obesity affecting in second trimester, unspecified obesity type History of maternal fourth degree perineal laceration, currently Procedures OBSTETRIC ULTRASOUND WHI US PREG UTERUS AFTER 1ST TRIMEST GESTATION Tahmina Dumont MD [address] [place] [address] [facility] [address] [place] [address] Referral ID Status Reason Start Date Expiration Date Visits Requested Visits Authorized [id number] Authorized Auto-Generat ed Referral 11/15/2024 11/15/[address] [facility] for referral (narrative)No reason for referral information [facility] Work Phone: Reason for visit Narrative* Diagnostic Procedure Only (Routine) - Closed Specialty Diagnoses / Procedures Referred By Harpreet t Referred To Contact US IMAGING Diagnoses Complication of intrauterine device (IUD), unspecified complication, initial encounter (HCC) Procedures US FEMALE PELVIS TRANSABD LTD US PELVIC NONOBSTETRIC IMAGE DCMTN LIMITED/F/U Humberto Schultz MD [address] [address] [place] [address] Referral ID Status Reason Start Date Expiration Date V isits Requested Visits Authorized [id number] Closed Auto-Generate d Referral 08/21/2023 10/11/[address] [facility] for visit Narrative* Diagnostic Procedure Only (Routine) - Closed Specialty Diagnoses / Procedures Referred By Harpreet t Referred To Contact [facility] Diagnoses Menorrhagia with irregular cycle Procedures PELVIC US WHI US PELVIC NONOBSTETRIC REAL-TIME IMAGE COMPLETE Darryl Pedro, CHUTE BUILDER.WALKING DRAGLINE OPERATOR [address] [place] [address] [facility] [address] [place] [address] Referral ID Status Reason Start Date Expiration Date V isits Requested Visits Authorized [id number] Closed Auto-Generate d Referral 05/02/2024 05/02/[address] [facility] for visit Narrative* Diagnostic Procedure Only (Urgent) - Closed Specialty Diagnoses / Procedures Referred By Harpreet t Referred To Contact XR IMAGING Diagnoses Acute pain of left shoulder Procedures XR SHOULDER GENERAL 3V OR MORE AP/TRUE AP/OTHER LEFT RADEX SHOULDER COMPLETE MINIMUM 2 VIEWS Roverto Ag, CHUTE BUILDER.WALKING DRAGLINE OPERATOR [address] [place] [address] [place] [address] Referral ID Status Reason Start Date Expiration Date V isits Requested Visits Authorized [id number] Closed Auto-Generate d Referral 02/12/2023 03/13/[address] [facility] for visit Narrative* Consult, Test, Treat (Routine) - Closed Specialty Diagnoses / Procedures Referred By Contac t Referred To Contact Diagnoses Diet controlled gestational diabetes mellitus (GDM) in third trimester (HCC) Procedures CONSULT TO DIABETES EDUCATION DSME MEDICAL NUTRITION ASSMT&IVNTJ INDIV EACH 15 PR MEDICAL NUTRITION ASSMT&IVNTJ INDIV EACH 15 PR MEDICAL NUTRITION ASSMT&IVNTJ INDIV EACH 15 PR MEDICAL NUTRITION ASSMT&IVNTJ INDIV EACH 15 PR Stephani Aaron APRN.YADI [address] [place] [address] Phone: tel: fax: Referral ID Status Reason Start Date Expiration Date V isits Requested Visits Authorized [id number] Closed PCP Requested Referral 12/30/2024 12/30/2025 1 1 [facility] Consult, Test, Treat (Routine) - Closed Specialty Diagnoses / Procedures Referred By Contac t Referred To Contact Diagnoses Diet controlled gestational diabetes mellitus (GDM) in third trimester ([facility]) History of maternal fourth degree perineal laceration, currently ([facility]) Supervision of high risk in third trimester ([facility]) Obesity affecting in second trimester, unspecified obesity type ([facility]) Procedures CONSULT TO MATERNAL MEDI OFFICE/OUTPATIENT NEW HIGH MDM 60 MINUTES Britney Griffin MD [address] [place] [address] Phone: tel: fax: Referral ID Status Reason Start Date Expiration Date V isits Requested Visits Authorized [id number] Closed PCP Requested Referral Auto-Generated Referral 02/06/2025 02/06/2026 1 1 [facility] Advance Directives No Advanced Directives Records [...] No April 30, 2023 9:46am Power of Cotton Ball Bagger No April 30 9:46am Advance Directive Response Recorded Date/ Time Advance Directives No November 09, 2016 9:37pm Living Will No May 18, 2023 7:20am Power of Cotton Ball Bagger No May 18 7:20am Advance Directive Response Recorded Date/ Time Advance Directives No November 09, 2016 9:37pm Living Will No July 22 9:16pm Power of Cotton Ball Bagger No July 22, 2023 9:16pm Advance Directive Response Recorded Date/ Time Advance Directives No November 09, 2016 8:37pm Living Will No August 20 8:03pm Power of Cotton Ball Bagger No August 20, 2023 8:03pm Advance Directive Response Recorded Date/ Time Advance Directives No November 09, 2016 8:37pm Living Will No November 18 5:27pm Power of Cotton Ball Bagger No November 18, 2023 5:27pm Advance Directive Response Recorded Date/ Time Advance Directives No November 09, 2016 8:37pm Living Will No November 24 11:03am Power of Cotton Ball Bagger No November 24, 2023 11:03am Advance Directive Response Recorded Date/ Time Living Will No March 04, 2024 8 :45pm Do you have a Healthcare Power of Cotton Ball Bagger? No March 04, 2024 8:45pm Living Will No October 12 10:20am Do you have a Healthcare Power of Cotton Ball Bagger? No October 12, 2024 10:20am Living Will No October 25 10:51pm Do you have a Healthcare Power of Cotton Ball Bagger? No October 25, 2024 10:51pm Living Will No October 30 5:18am Do you have a Healthcare Power of Cotton Ball Bagger? No October 30, 2024 5:18am Advance Directives No November 09, 2016 9:37pm Advance Directive Response Recorded Date/ Time Do you have a Healthcare Power of Cotton Ball Bagger? No June 18, 2025 5:42pm Advance Directives No November 09, 2016 9:37pm [...] syncope Procedures CONSULT TO CARDIOLOGY OFFICE/OUTPATIENT [facility] [place] [address] [place] [phone] Referral ID Status Reason Start Date Expiration Date Visits Requested Visits Authorized [id number] Authorized PCP Requested Referral 07/13/2024 07/12/2025 1 1 Specialty Diagnoses / Procedures Referred By Harpreet galindo Referred To Contact MR IMAGING Diagnoses Discharge from both nipples Fibrocystic breast changes of both breasts Family history of breast cancer Procedures MRI BREAST WO/W IVCON BILATERAL MRI BREAST WITHOUT&WITH CONTRAST W/CAD BILATERAL Chetna Nettles APRN.WALKING DRAGLINE OPERATOR [address] [phone] [facility] [place] [address] Referral ID Status Reason Start Date Expiration Date Visits Requested Visits Authorized [id number] New Request Auto-Generat ed Referral 06/28/2024 07/28/2025 1 1 Specialty Diagnoses / Procedures Referred By Harpreet galindo Referred To Contact Hematology Diagnoses History of blood clots Procedures CONSULT TO HEMATOLOGY OFFICE/OUTPATIENT [facility] 60 MINUTES Darlin Fleming, CHUTE BUILDER.WALKING DRAGLINE OPERATOR [address] [place] [address] Referral ID Status Reason Start Date Expiration Date Visits Requested Visits Authorized [id number] Authorized PCP Requested Referral 06/27/2024 06/27/2025 1 1 Specialty Diagnoses / Procedures Referred By Harpreet galindo [facility] Diagnoses Excess skin Procedures ECG COMPLETE ECG ROUTINE ECG W/LEAST 12 LDS W/I&R Darlin Fleming, ASAEL.WALKING DRAGLINE OPERATOR [address] [place] [address] [facility] [place] [phone] Referral ID Status Reason Start Date Expiration Date Visits Requested Visits Authorized [id number] New Request Auto-Generat ed Referral 06/27/2024 06/27/2025 1 1 Specialty Diagnoses / Procedures Referred By Contac t Referred To Contact Diagnoses Excess skin Procedures REFER TO [facility] - PREOPERATIVE OPTIMIZATION OFFICE/OUTPATIENT NEW HIGH MDM 60 MINUTES Darlin Fleming APRN.WALKING DRAGLINE OPERATOR [address] [place] [address] Referral ID Status Reason Start Date Expiration Date V isits Requested Visits Authorized [id number] Authorized 06/27/2024 09/25/2024 1 1 Specialty Diagnoses / Procedures Referred By Contac t Referred To Contact Diagnoses ADHD (attention deficit hyperactivity disorder), predominantly hyperactive impulsive type Cooper Gastelum APRN.WALKING DRAGLINE OPERATOR [address] [place] [address] Referral ID Status Reason Start Date Expiration Date V isits Requested Visits Authorized [id number] Pending Review 1 1 Specialty Diagnoses / Procedures Referred By Contac t Referred To Contact General Surgery Diagnoses Calculus of gallbladder without cholecystitis without obstruction RUQ pain Procedures CONSULT TO GENERAL SURGERY OFFICE/OUTPATIENT NEW HIGH MDM 60-74 MINUTES Cooper Gastelum APRN.WALKING DRAGLINE OPERATOR [address] [place] [address] Referral ID Status Reason Start Date Expiration Date Visits Requested Visits Authorized [id number] Authorized PCP Requested Referral 09/17/2023 09/16/2024 1 1 Specialty Diagnoses / Procedures Referred By Contac t Referred To Contact MR IMAGING Diagnoses Liver lesion Procedures MRI LIVER WO/W IVCON MRI ABDOMEN W/O & W/CONTRAST MATERIAL Roverto Diane MD [address] [place] [address] Mr Imaging [facility] Referral ID Status Reason Start Date Expiration Date Visits Requested Visits Authorized [id number] Additional Clinical Info Needed Auto-Generat ed Referral 3 09/22/2024 1 1 Specialty Diagnoses / Procedures Referred By Contac t Referred To Contact CT IMAGING Diagnoses Complete intestinal obstruction, unspecified cause (HCC) Procedures CT ABD/PEL W IVCON CT ABD & PELVIS W/CONTRAST Mierya Shah DO [address] [place] [address] [place] [address] Referral ID Status Reason Start Date Expiration Date V isits Requested Visits Authorized [id number] Closed Auto-Generate d Referral 08/05/2023 09/03/2023 1 1 Specialty Diagnoses / Procedures Referred By Contac t Referred To Contact Orthopedics Diagnoses Acute pain of left shoulder Procedures CONSULT TO ORTHOPAEDICS OFFICE/OUTPATIENT [facility] 60-74 MINUTES Roverto Ag, CHUTE BUILDER.WALKING DRAGLINE OPERATOR [address] [place] [address] Referral ID Status Reason Start Date Expiration Date Visits Requested Visits Authorized [id number] Authorized PCP Requested Referral 02/12/2023 02/12/2024 1 1 Specialty Diagnoses / Procedures Referred By Contac t Referred To Contact XR IMAGING Diagnoses Acute pain of left shoulder Procedures XR SHOULDER GENERAL 3V OR MORE AP/TRUE AP/OTHER LEFT RADEX SHOULDER COMPLETE MINIMUM 2 VIEWS Roverto Ag, CHUTE BUILDER.WALKING DRAGLINE OPERATOR [address] [place] [address] Xr Imaging Referral ID Status Reason Start Date Expiration Date V isits Requested Visits Authorized [id number] Closed Auto-Generate d Referral 02/12/2023 03/13/2024 1 1 Specialty Diagnoses / Procedures Referred By Contac t Referred To Contact CT IMAGING Diagnoses Hernia of abdominal wall Procedures CT ABDOMEN W IVCON CT ABDOMEN W/CONTRAST Shilpa Winters MD [address] [place] [address] Ct Imaging Referral ID Status Reason Start Date Expiration Date Visits Requested Visits Authorized [id number] Authorized Auto-Generat ed Referral 12/02/2022 12/31/2022 1 1 Specialty Diagnoses / Procedures Referred By Contac t Referred To Contact Ophthalmology Diagnoses Blurry vision, right eye Procedures CONSULT TO OPHTHALMOLOGY OFFICE/OUTPATIENT [facility] 60-74 MINUTES Pj James MD [address] [facility] 1 [place] [address] Referral ID Status Reason Start Date Expiration Date Visits Requested Visits Authorized [id number] Authorized PCP Requested Referral 12/05/2022 12/05/2023 1 1 Specialty Diagnoses / Procedures Referred By Contac t Referred To Contact General Surgery Diagnoses Hernia of abdominal wall Procedures CONSULT TO GENERAL SURGERY OFFICE/OUTPATIENT [facility] 60-74 MINUTES Copoer Gastelum, CHUTE BUILDER.WALKING DRAGLINE OPERATOR [address] [place] [address] Rivera Pappas MD [address] [facility] [place] [address] Referral ID Status Reason Start Date Expiration Date Visits Requested Visits Authorized [id number] Authorized PCP Requested Referral 12/01/2022 12/01/2023 1 1 Specialty Diagnoses / Procedures Referred By Contac t Referred To Contact Nutrition Diagnoses Class 3 severe obesity without serious comorbidity with body mass index (BMI) of 45.0 to 49.9 in adult, unspecified obesity type (HCC) Procedures CONSULT TO NUTRITION THERAPY OFFICE/OUTPATIENT [facility] 60-74 MINUTES Cooper Gastelum, CHUTE BUILDER.WALKING DRAGLINE OPERATOR [address] [place] [address] Referral ID Status Reason Start Date Expiration Date Visits Requested Visits Authorized [id number] Authorized PCP Requested Referral 2 09/09/2023 1 1 Specialty Diagnoses / Procedures Referred By Contac t Referred To Contact Diagnoses Weight gain Procedures CONSULT BARIATRIC/METABOLIC INSTITUTE OFFICE/OUTPATIENT [facility] 60-74 MINUTES Leelee Tobar, CHUTE BUILDER.WALKING DRAGLINE OPERATOR [address] [place] [address] Referral ID Status Reason Start Date Expiration Date Visits Requested Visits Authorized [id number] Authorized PCP Requested Referral 05/22/2022 05/22/2023 1 1 Medications Administered Section Active Administered Medications - up to 3 most recent administrations Medication Order MAR Action Action Date Dose Rate Site PHENYLephrine 2.5 % 1 Drop (AK-DILATE, GORDO-SYNEPHRINE) 1 Drop, BOTH EYES, DIRECTED, Starting on Thu12/17/22 at 1400, Until Ana 12/18/22 at 0159, Administer for dilation PROTECT FROM [...] DIRECTED, Starting on Thu12/17/22 at 1400, Until Ana 12/18/22 at 0159, Administer for dilation Given 12/17/2022 2:00 PM EST 1 Drop Chief Complaint and Reason for Visit Chief Complaint mental health Chief Complaint mental health abd abd Reason for Visit SBO (small bowel obs truction) Chief Complaint mental health SMALL BOWEL OBSTRUCTION abd SMALL BOWEL OBSTRUCTION 1wk [facility] 8/8 f/u bowel obstruction general Reason for Visit Abdominal pain Nausea Small bowel obstruction Chief Complaint mental health SMALL BOWEL OBSTRUCTION abd SMALL BOWEL OBSTRUCTION 1wk [facility] 8/8 f/u bowel obstruction general IUD check Reason [...] 10:07am contractions January 05, 2025 10 :07am Chief Complaint Admit Date DECREASED MOVEMENT March 02, 2025 2:10pm LACERATION June 18, 2025 5:33pm Reason for Visit Admit Date 35 weeks gestation of February 2:10pm Abdominal pain affecting , ante March 02, 2025 2:10pm Decreased movement aff ecting management of mother, antepartum March 02, 2025 2:10pm Headache in , antepartum March 022024 2:10pm Additional Source Comments Ordered Prescriptions (unrec ognized [...] 50 mL (mini-bag) (COMPLETED) 2,000 mg, Intravenous, DRAW FURNACE TENDER TO O.R., 1 dose, On Ana 05/16/21 at 0730, property analyst to OR, Pre-op (day of surgery) 0750 [...] Caicedo, RN) 0054 (Stopped - Provider: Marifer Caicedo RN) docusate sodium (COLACE) capsule 100 mg 100 mg, Oral, 2 TIMES DAILY, First dose on Ana 05/16/21 at 1015, Do not crush or break. 1227 (Given - Provider: Marietta Jarquin RN)2038 (Given - Provider: Marifer Caicedo RN) 0815 (Given - Provider: Helene Schwartz, TERRY)2100 (Due) famotidine (PEPCID) injection 20 mg (COMPLETED) [...] hours 1228 (New Bag - Provider: Marietta Jarquin, TERRY) lactated ringers infusion (CANCELED) Intravenous, at 50 [...] Mendez RN)1004 (Given - Provider: Ana Maria Mendez RN) HYDROmorphone (DILAUDID) injection 0.5 mg (CANCELED) 0.5 [...] Starting on Ana 05/16/21 at 1208, Post-op 165 (See Alternative - Provider: Marietta Jarquin RN)2038 (Given - Provider: Marifer Caicedo RN) 0127 (Given - Provider: Landy Wilkinson, TERRY)0519 (Given - Provider: Marifer Caicedo, TERRY)1034 (Given - Provider: Helene Schwartz, TERRY) oxyCODONE (ROXICODONE) immediate release tablet 5 mg(Linked Group 2) 5 mg, Oral, EVERY 4 HOURS PRN, Pain Moderate (4-6), Starting on Ana 05/16/21 at 1208, Post-op 165 (Given - Provider: Marietta Jarquin RN)2038 (See Alternative - Provider: Marifer Caicedo RN) 0127 (See Alternative - Provider: Landy Wilkinson RN)0519 (See Alternative - Provider: Marifer Caicedo RN)1034 [...] 112 kg), IntraVENous, ONCE, 1 dose, On [place] 06/09/21 at 1445 1530 (New Bag - Prov ider: Lisa Isbell, TERRY)1550 (Stopped - Provider: Lisa Isbell RN) sodium chloride flush 0.9 % injection 3 mL(Linked Group 1) 3 mL, IntraVENous, EVERY 8 HOURS, First dose on 06/09/21 at 1245, Flush line with 3-5 mL 1530 (Given - Provid er: Lisa Isbell RN)204 (Due) Linked Groups Order Group 1: Saline [...] ordered. 1101 (Given - Provid er: Brittanie Aalrcon RN) ondansetron (ZOFRAN) injection 4 mg (COMPLETED) [...] IVCON CT ABD & PELVIS W/CONTRAST Mireya Shah, DO [address] [place] [address] [place] [address] Referral ID Status Reason Start Date Expiration Date V isits Requested Visits Authorized [id number] Closed Auto-Generate d Referral 08/05/2023 09/03/2023 1 [...] Weight gain Procedures CONSULT BARIATRIC[facility]OLIC INSTITUTE OFFICE/OUTPATIENT [facility] 60-74 MINUTES Leelee Tobar, CHUTE BUILDER.WALKING DRAGLINE OPERATOR [address] [place] [address] Referral ID Status Reason Start Date Expiration Date V isits Requested Visits Authorized [id number] Closed PCP Requested Referral 05/22/2022 05/22/2023 1 [...] Procedures CONSULT TO GENERAL SURGERY OFFICE/OUTPATIENT [facility] 60-74 MINUTES Cooper Gastelum, CHUTE BUILDER.WALKING DRAGLINE OPERATOR [address] [place] [address] Rivera Pappas MD [address] [place] [address] Referral ID Status Reason Start Date Expiration Date V isits Requested Visits Authorized [id number] Closed PCP Requested Referral 12/01/2022 12/01/2023 1 1 Reason Comments Throat Problem Laryngitis, cough, c hest congestion, sob, runny nose x 5 days Reason Comments Blurred Vision Right Eye Reason Comments Follow Up For Diplopia Reason Comments Refill Request Reason Comments Orders Reason Comments Vaginal Problem Reason Comments Pain Left shoulder/blade pain x 2 weeks 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 Comments 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 Operator Exam Reason Onset Date Comments Refill Request [...] Concern about STI Reason Comments ext document [facility] Report Reason Comments Manometry Reason Comments [...] HIGH MDM 60 MINUTES Cooper Jordan, JOSE [address] [facility] [place] [address] Referral ID Status Reason Start Date Expiration Date V isits Requested Visits Authorized [id number] Closed PCP Requested Referral 10/29/2023 10/28/2024 1 [...] US Specialty Diagnoses / Procedures Referred By Raeac t Referred To Contact [facility] Diagnoses Discharge from both nipples Procedures US BREAST LTD RIGHT US BREAST UNI REAL TIME WITH IMAGE LIMITED Chetna Nettles APRN.WALKING DRAGLINE OPERATOR [address] [place] [address] [facility] [address] [place] [address] Referral ID Status Reason Start Date Expiration Date V isits Requested Visits Authorized [id number] Closed Auto-Generate d Referral 11/27/2023 10/11/2024 1 [...] DVT Specialty Diagnoses / Procedures Referred By Harpreet t Referred To Contact Hematology Diagnoses History of blood clots Procedures CONSULT TO HEMATOLOGY OFFICE/OUTPATIENT NEW HIGH MDM 60 MINUTES Darlin Fleming APRN.WALKING DRAGLINE OPERATOR [address] [place] [address] Referral ID Status Reason Start Date Expiration Date V isits Requested Visits Authorized [id number] Closed PCP Requested Referral 06/27/2024 06/27/2025 1 1 Reason Comments PRAF Reason Comments Ear Pain R ear pain, sore thr oat, cough, congestion, x 2 days Reason Onset Date Comments Care 09/19/2024 Reason Comments US Specialty Diagnoses / Procedures Referred By Raeac t [facility]oses 7 weeks gestation of Procedures NUCHAL TRANSLUCENCY WHI US NUCHAL TRANSLUCENCY 1ST GESTATION Jammie Funes, CHUTE BUILDER.WALKING DRAGLINE OPERATOR [address] [place] [address] [facility] [address] [place] [address] Referral ID Status Reason Start Date Expiration Date V isits Requested Visits Authorized [id number] Closed Auto-Generate d Referral 08/18/2024 08/18/2025 1 1 Reason Comments Dental Problem Reason Comments Derm Problem Rash R side of deepika x this AM Reason Comments breast pump Reason Onset Date Comments Care 10/20/2024 Reason Comments Question (OB Question) Specialty Diagnoses / Procedures Referred By Contac t Referred To Contact [facility] Diagnoses Supervision of high risk in second trimester Obesity affecting in second trimester, unspecified obesity type History of maternal fourth degree perineal laceration, currently Procedures OBSTETRIC ULTRASOUND WHI US PREG UTERUS AFTER 1ST TRIMEST GESTATION Tahmina Dumont MD [address] [place] [address] [address] Referral ID Status Reason Start Date Expiration Date V isits Requested Visits Authorized [id number] Closed Auto-Generate d Referral 10/20/2024 10/20/2025 1 1 Reason Comments Care US Specialty Diagnoses / Procedures Referred By Contac t Referred To Contact Diagnoses History of maternal fourth degree perineal laceration, currently Procedures CONSULT TO MATERNAL MEDI OFFICE/OUTPATIENT NEW HIGH MDM 60 MINUTES Tahmina Dumont MD [address] [place] [address] Referral ID Status Reason Start Date Expiration Date V isits Requested Visits Authorized [id number] Closed PCP Requested Referral Auto-Generated Referral 10/20/2024 10/20/2025 1 1 Reason Onset Date Comments Care 11/15/2024 Reason Onset Date Comments Care 12/15/2024 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 Comments 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 PRAF Reason Onset Date Comments GDM 12/30/2024 Reason Comments OB Pain Reason Comments OB Abdominal Trauma Specialty Diagnoses / Procedures Referred By Contac t Referred To Contact [facility] Diagnoses Obesity affecting in second trimester, unspecified obesity type (HCC) History of maternal fourth degree perineal laceration, currently (HCC) Procedures OBSTETRIC ULTRASOUND WHI US PREG UTERUS AFTER 1ST TRIMEST GESTATION Tahmina Dumont MD [address] [place] [address] Phone: tel: fax: [facility] [address] [place] [address] Referral ID Status Reason Start Date Expiration Date V isits Requested Visits Authorized [id number] Closed Auto-Generate d Referral 11/15/2024 11/15/2025 6 1 Reason Onset Date Comments Care 01/20/2025 Reason Onset Date Comments Care 02/06/2025 Specialty Diagnoses / Procedures Referred By Contac t Referred To Contact [facility] Diagnoses Diet controlled gestational diabetes mellitus (GDM) in third trimester ([facility]) Procedures OBSTETRIC ULTRASOUND WHI US PREG UTERUS AFTER 1ST TRIMEST GESTATION Stephani Aaron APRN.YADI [address] [place] [address] Phone: tel: fax:[phone] [facility] [address] [place] [address] Referral ID Status Reason Start Date Expiration Date V isits Requested Visits Authorized [id number] Closed Auto-Generate d Referral 12/30/2024 12/30/2025 5 [...] section and content) DATE CREATED AUTHOR 06/28/2021 [facility] DATE CREATED AUTHOR AUTHOR'S ORGANIZ ATION 08/05/2022 [facility] DATE CREATED AUTHOR AUTHOR'S ORGANIZ ATION 08/11/2022 [facility] DATE CREATED AUTHOR AUTHOR'S ORGANIZ ATION 08/15/2022 [facility] DATE CREATED AUTHOR AUTHOR'S ORGANIZ ATION 12/26/2022 [facility] DATE CREATED AUTHOR AUTHOR'S ORGANIZ ATION 08/23/2023 [facility] DATE CREATED AUTHOR AUTHOR'S ORGANIZ ATION 08/23/2023 [facility] DATE CREATED AUTHOR AUTHOR'S ORGANIZ ATION 11/02/2023 [facility] DATE CREATED AUTHOR AUTHOR'S ORGANIZ ATION 07/17/2024 [facility] DATE CREATED AUTHOR AUTHOR'S ORGANIZ ATION 03/28/2025 [facility] DATE CREATED AUTHOR AUTHOR'S ORGANIZ ATION 06/25/2025 [facility] DATE CREATED AUTHOR AUTHOR'S ORGANIZ ATION 08/22/2025 [facility] Care Team (unrecognized sect ion and content) Portainer Operator Relationship Specialty Start Date End Date Roverto Diane MD [address] [place] [address] PCP - General Family Practice 03/23/17 Portainer Operator Relationship Specialty Start Date End Date Roverto Diane MD [address] [place] [address] PCP - General Family Practice 03/23/17 Portainer Operator Relationship Specialty Start Date End Date Roverto Diane MD [address] [place] [address] PCP - General Family Practice 03/23/17 Portainer Operator Relationship Specialty Start Date End Date Roverto Diane MD [address] [place] [address] PCP - General Family Practice 03/23/17 Portainer Operator Relationship Specialty Start Date End Date Roverto Diane MD [address] [place] [address] PCP - General Family Medicine 03/23/17 Portainer Operator Relationship Specialty Start Date End Date Roverto Diane MD [address] [facility] [place] [address] PCP - General Family Medicine 03/23/17 Portainer Operator Relationship Specialty Start Date End Date Roverto Diane MD [address] [facility] [place] [address] PCP - General Family Medicine 03/23/17 Portainer Operator Relationship Specialty Start Date End Date Roverto Diane MD [facility] [place] [address] PCP - General Family Medicine 03/23/17 Portainer Operator Relationship Specialty Start Date End Date Roverto Diane MD [facility] [place] [address] PCP - General Family Medicine 03/23/17 Portainer Operator Relationship Specialty Start Date End Date Roverto Diane MD [facility] [place] [address] PCP - General Family Medicine 03/23/17 Portainer Operator Relationship Specialty Start Date End Date Roverto Diane MD [facility] [place] [address] PCP - General Family Medicine 03/23/17 Portainer Operator Relationship Specialty Start Date End Date Roverto Diane MD [facility] [place] [address] PCP - General Family Medicine 03/23/17 Portainer Operator Relationship Specialty Start Date End Date Roverto Diane MD [facility] [place] [address] PCP - General Family Medicine 03/23/17 Portainer Operator Relationship Specialty Start Date End Date Roverto Diane MD [address] [place] [address], [place] [address] PCP - General Family Medicine 03/23/17 Portainer Operator Relationship Specialty Start Date End Date Roverto Diane MD [address] [facility] [place] [address] PCP - General Family Medicine 03/23/17 Portainer Operator Relationship Specialty Start Date End Date Roverto Diane MD [address] [facility] [place] [address] PCP - General Family Medicine 03/23/17 Portainer Operator Relationship Specialty Start Date End Date Roverto Diane MD [address] [facility] [place] [address] PCP - General Family Medicine 03/23/17 Portainer Operator Relationship Specialty Start Date End Date Roverto Diane MD [address] [facility] [place] [address] PCP - General Family Medicine 03/23/17 Portainer Operator Relationship Specialty Start Date End Date Roverto Diane MD [address] [facility] [place] [address] PCP - General Family Medicine 03/23/17 Portainer Operator Relationship Specialty Start Date End Date Roverto Diane MD [address] [facility] [place] [address] PCP - General Family Medicine 03/23/17 Portainer Operator Relationship Specialty Start Date End Date Roverto Diane MD [address] [facility] [place] [address] PCP - General Family Medicine 03/23/17 Portainer Operator Relationship Specialty Start Date End Date Roverto Diane MD [address] [facility] [place] [address] PCP - General Family Medicine 03/23/17 Portainer Operator Relationship Specialty Start Date End Date Roverto Diane MD [address] [place] [address] PCP - General Family Medicine 03/23/17 Portainer Operator Relationship Specialty Start Date End Date Roverto Diane MD [address] [place] [address] PCP - General Family Medicine 03/23/17 Team Status: Active Member Role Status Dates Dr. Alfredo Barroso MD Family Provider Active Dr. Alfredo Barroso MD Primary Care Provider Acti ve Team Status: Inactive Member Role Status Dates Dr. Alfredo Barroso MD Primary Care Provider Acti ve Dr. Zac Courtney DO Emergency Provider Active Portainer Operator Relationship Specialty Start Date End Date Roverto Diane MD [address] [place] [address] PCP - General Family Medicine 03/23/17 Portainer Operator Relationship Specialty Start Date End Date Roverto Diane MD [address] [place] [address] PCP - General Family Medicine 03/23/17 Portainer Operator Relationship Specialty Start Date End Date Roverto Diane MD [address] [place] [address] PCP - General Family Medicine 03/23/17 Portainer Operator Relationship Specialty Start Date End Date Roverto Diane MD [address] [place] [address] PCP - General Family Medicine 03/23/17 Portainer Operator Relationship Specialty Start Date End Date Roverto Diane MD [address] [place] [address] PCP - General Family Medicine 03/23/17 Team [...] Nj MD Admit Provider, Attending Provider Active Portainer Operator Relationship Specialty Start Date End Date Roverto Diane MD [address] [facility], [place] [address] PCP - General Family Medicine 03/23/17 Portainer Operator Relationship Specialty Start Date End Date Roverto Diane MD [address] [place], [place] [address] PCP - General Family Medicine 03/23/17 Team [...] Dr. Delgado Marie MD Emergency Provider Active Portainer Operator Relationship Specialty Start Date End Date Roverto Diane MD [address] [facility] [place] [address] PCP - General Family Medicine 03/23/17 Portainer Operator Relationship Specialty Start Date End Date Roverto Diane MD [address] [place] [address] PCP - General Family Medicine 03/23/17 Portainer Operator Relationship Specialty Start Date End Date Roverto Diane MD [address] [place] [address] PCP - General Family Medicine 03/23/17 Portainer Operator Relationship Specialty Start Date End Date Roverto Diane MD [address] [place] [address] PCP - General Family Medicine 03/23/17 Portainer Operator Relationship Specialty Start Date End Date Roverto Diane MD [address] [place] [address] PCP - General Family Medicine 03/23/17 Portainer Operator Relationship Specialty Start Date End Date Roverto Diane MD [address] [place] [address] PCP - General Family Medicine 03/23/17 Team Status: Inactive Member Role Status Dates Dr. Alfredo Barroso MD Primary Care Provider Acti ve Dr. Mica Mcneil DO Emergency Provider Active Team Status: Inactive Member Role Status Dates Dr. Alfredo Barroso MD Primary Care Provider Acti ve Dr. Delgado Marie MD Attending Provider, Emergency Pro vider Active Portainer Operator Relationship Specialty Start Date End Date Roverto Diane MD [address] [place] [address] PCP - General Family Medicine 03/23/17 Portainer Operator Relationship Specialty Start Date End Date Roverto Diane MD [address] [place] [address] PCP - General Family Medicine 03/23/17 Portainer Operator Relationship Specialty Start Date End Date Roverto Diane MD [address] [place] [address] PCP - General Family Medicine 03/23/17 Team Status: Inactive Member Role Status Dates Dr. Alfredo Barroso MD Primary Care Provider Acti ve Dr. Mica Mcneil DO Attending Provider, Emergency P doris Active Team Status: Inactive Member Role Status Dates Dr. Alfredo Barroso MD Primary Care Provider Acti ve Dr. Juanjo Velez DO Emergency Provider Active Portainer Operator Relationship Specialty Start Date End Date Roverto Diane MD [address] [place] [address] PCP - General Family Medicine 03/23/17 Portainer Operator Relationship Specialty Start Date End Date Roverto Diane MD [address] [place] [address] PCP - General Family Medicine 03/23/17 Portainer Operator Relationship Specialty Start Date End Date Roverto Diane MD [address] [place] [address] PCP - General Family Medicine 03/23/17 Team Status: Inactive Member Role Status Dates Dr. Alfredo Barroso MD Primary Care Provider Acti ve Dr. Juanjo Velez DO Attending Provider, Emergency Provider Active Team Status: Inactive Member Role Status Dates Dr. Alfredo Barroso MD Primary Care Provider Acti ve Tanner Ryan MD Emergency Provider Active Portainer Operator Relationship Specialty Start Date End Date Roverto Diane MD [address] [place] [address] PCP - General Family Medicine 03/23/17 Portainer Operator Relationship Specialty Start Date End Date Roverto Diane MD [address] [place] [address] PCP - General Family Medicine 03/23/17 Portainer Operator Relationship Specialty Start Date End Date Roverto Diane MD [address] [place] [address] PCP - General Family Medicine 03/23/17 Portainer Operator Relationship Specialty Start Date End Date Roverto Diane MD [address] [place] [address] PCP - General Family Medicine 03/23/17 Portainer Operator Relationship Specialty Start Date End Date Roverto Diane MD [address] [place] [address] PCP - General Family Medicine 03/23/17 Portainer Operator Relationship Specialty Start Date End Date Roverto Diane MD [address] [place] [address] PCP - General Family Medicine 03/23/17 Portainer Operator Relationship Specialty Start Date End Date Roverto Diane MD [address] [place] [address] PCP - General Family Medicine 03/23/17 Portainer Operator Relationship Specialty Start Date End Date Roverto Diane MD [address] [place] [address] PCP - General Family Medicine 03/23/17 Portainer Operator Relationship Specialty Start Date End Date Roverto Diane MD [address] [place] [address] PCP - General Family Medicine 03/23/17 Portainer Operator Relationship Specialty Start Date End Date Roverto Diane MD [address] [facility] [place] [address] PCP - General Family Medicine 03/23/17 Portainer Operator Relationship Specialty Start Date End Date Roverto Diane MD [address] [place] [address] PCP - General Family Medicine 03/23/17 Portainer Operator Relationship Specialty Start Date End Date Roverto Diane MD [address] [place] [address] PCP - General Family Medicine 03/23/17 Portainer Operator Relationship Specialty Start Date End Date Roverto Diane MD [address] [place] [address] PCP - General Family Medicine 03/23/17 Portainer Operator Relationship Specialty Start Date End Date Roverto Diane MD [address] [place] [address] PCP - General Family Medicine 03/23/17 Portainer Operator Relationship Specialty Start Date End Date Roverto Diane MD [address] [place] [address] PCP - General Family Medicine 03/23/17 Portainer Operator Relationship Specialty Start Date End Date Roverto Diane MD [address] [facility] [place] [address] PCP - General Family Medicine 03/23/17 Portainer Operator Relationship Specialty Start Date End Date Roverto Diane MD [address] [place] [address] PCP - General Family Medicine 03/23/17 Portainer Operator Relationship Specialty Start Date End Date Roverto Diane MD [address] [place] [address] PCP - General Family Medicine 03/23/17 Portainer Operator Relationship Specialty Start Date End Date Roverto Diane MD [address] [place] [address] PCP - General Family Medicine 03/23/17 Portainer Operator Relationship Specialty Start Date End Date Roverto Diane MD [address] [place] [address] PCP - General Family Medicine 03/23/17 Portainer Operator Relationship Specialty Start Date End Date Roverto Diane MD [address] [place] [address] PCP - General Family Medicine 03/23/17 Portainer Operator Relationship Specialty Start Date End Date Roverto Diane MD [address] [place] [address] PCP - General Family Medicine 03/23/17 Portainer Operator Relationship Specialty Start Date End Date Roverto Diane MD [address] [place] [address] PCP - General Family Medicine 03/23/17 Portainer Operator Relationship Specialty Start Date End Date Roverto Diane MD [address] [place] [address] PCP - General Family Medicine 03/23/17 Portainer Operator Relationship Specialty Start Date End Date Roverto Diane MD [address] [place] [address] PCP - General Family Medicine 03/23/17 Portainer Operator Relationship Specialty Start Date End Date Roverto Diane MD [address] [facility] [place] [address] PCP - General Family Medicine 03/23/17 Cooper Gastelum APRN.WALKING DRAGLINE OPERATOR [address] [place] [address] Non Destructive Tester Family Medicine 09/17/24 Sallie Bustamante PA-C [address] [place] [address] Non Destructive Tester Family Medicine 09/17/24 Portainer Operator Relationship Specialty Start Date End Date Roverto Diane MD [address] [place] [address] PCP - General Family Medicine 03/23/17 Cooper Gastelum APRN.WALKING DRAGLINE OPERATOR [address] [place] [address] Non Destructive Tester Family Medicine 09/17/24 Sallie Bustamante PA-C [address] [place] [address] Non Destructive Tester Family Medicine 09/17/24 Portainer Operator Relationship Specialty Start Date End Date Roverto Diane MD [address] [place] [address] PCP - General Family Medicine 03/23/17 Cooper Gastelum APRN.WALKING DRAGLINE OPERATOR [address] [place] [address] Non Destructive Tester Family Medicine 09/17/24 Sallie Bustamante PA-C [address] [place] [address] Non Destructive Tester Family Medicine 09/17/24 Portainer Operator Relationship Specialty Start Date End Date Roverto Diane MD [address] [place] [address] PCP - General Family Medicine 03/23/17 Cooper Gastelum APRN.WALKING DRAGLINE OPERATOR [address] [place] [address] Non Destructive Tester Family Medicine 09/17/24 Sallie Bustamante PA-C [address] [place] [address] Non Destructive Tester Family [facility] 09/17/24 Portainer Operator Relationship Specialty Start Date End Date Roverto Diane MD [address] [place] [address] PCP - General Family Medicine 03/23/17 Cooper Gastelum APRN.WALKING DRAGLINE OPERATOR [address] [place] [address] Non Destructive Tester Family Medicine 09/17/24 Sallie Bustamante PA-C [address] [place] [address] Non Destructive Tester Family Medicine 09/17/24 Portainer Operator Relationship Specialty Start Date End Date Roverto Diane MD [address] [place] [address] PCP - General Family Medicine 03/23/17 Cooper Gastelum, ASAEL.WALKING DRAGLINE OPERATOR [address] [place] [address] Non Destructive Tester Family [facility] 09/17/24 Sallie Bustamante PA-C [address] [place] [address] [facility] Portainer Operator Relationship Specialty Start Date End Date Roverto Diane MD [address] [place] [address] PCP - General Family Medicine 03/23/17 Cooper Gastelum APRN.WALKING DRAGLINE OPERATOR [address] [place] [address] [facility] 09/17/24 Sallie Bustamante PA-C [address] [place] [address] [facility] 09/17/24 Portainer Operator Relationship Specialty Start Date End Date Roverto Diane MD [address] [place] [address] PCP - General Family Medicine 03/23/17 Cooper Gastelum APRN.WALKING DRAGLINE OPERATOR [address] [place] [address] [facility] Family Medicine 09/17/24 Sallie Bustamante PA-C [address] [place] [address] [facility] Family Medicine 09/17/24 Portainer Operator Relationship Specialty Start Date End Date Roverto Diane MD [address] [place] [address] PCP - General Family Medicine 03/23/17 Cooper Gastelum APRN.WALKING DRAGLINE OPERATOR [address] [facility] [place] [address] Non Destructive Tester Family Medicine 09/17/24 Sallie Bustamante PA-C [address] [place] [address] Non Destructive Tester Family Medicine 09/17/24 Portainer Operator Relationship Specialty Start Date End Date Roverto Diane MD [address] [place] [address] PCP - General Family Medicine 03/23/17 Cooper Gastelum APRN.WALKING DRAGLINE OPERATOR [address] [place] [address] Non Destructive Tester Family Medicine 09/17/24 Sallie Bustamante PA-C [address] [place] [address] Non Destructive Tester Family Medicine 09/17/24 Portainer Operator Relationship Specialty Start Date End Date Roverto Diane MD [address] [place] [address] PCP - General Family Medicine 03/23/17 Cooper Gastelum APRN.WALKING DRAGLINE OPERATOR [address] [place] [address] Non Destructive Tester Family Medicine 09/17/24 Sallie Bustamante PA-C [address] [place] [address] Non Destructive Tester Family Medicine 09/17/24 Portainer Operator Relationship Specialty Start Date End Date Roverto Diane MD [address] [place] [address] PCP - General Family Medicine 03/23/17 Cooper Gastelum, ASAEL.WALKING DRAGLINE OPERATOR [address] [place] [address] Non Destructive Tester Family Medicine 09/17/24 Sallie Bustamante PA-C [address] [place] [address] Non Destructive Tester Family Medicine 09/17/24 Portainer Operator Relationship Specialty Start Date End Date Roverto Diane MD [address] [place] [address] PCP - General Family Medicine 03/23/17 Cooper Gastelum, CHUTE BUILDER.WALKING DRAGLINE OPERATOR [address] [place] [address] Non Destructive Tester Family Medicine 09/17/24 Sallie Bustamante PA-C [address] [place] [address] Non Destructive Tester Family Medicine 09/17/24 Portainer Operator Relationship Specialty Start Date End Date Roverto Diane MD [address] [place] [address] PCP - General Family Medicine 03/23/17 Cooper Gastelum, CHUTE BUILDER.WALKING DRAGLINE OPERATOR [address] [place] [address] Non Destructive Tester Family Medicine 09/17/24 Sallie Bustamante PA-C [address] [place] [address] Non Destructive Tester Family Medicine 09/17/24 Portainer Operator Relationship Specialty Start Date End Date Roverto Diane MD [address] [facility] [place] [address] PCP - General Family Medicine 03/23/17 Cooper Gastelum, ASAEL.WALKING DRAGLINE OPERATOR [address] [place], [place] [address] Non Destructive Tester Family [facility] 09/17/24 Sallie Bustamante PA-C [address] [facility] [place] [address] [facility] 09/[facility] Portainer Operator Relationship Specialty Start Date End Date Roverto Diane MD [address] [facility] [place] [address] PCP - General Family Medicine 03/23/17 Cooper Gastelum, CHUTE BUILDER.WALKING DRAGLINE OPERATOR [address] [place] [address] Non Destructive Tester [facility] Medicine 09/17/24 Sallie Bustamante PA-C [address] [facility], [place] [address] [facility] Team Status: Active Member Role Status [...] January 09, 2025 End: January 09, 2025 Portainer Operator Relationship Specialty Start Date End Date Roverto Diane MD [address] [place] [address] PCP - General Family Medicine 03/23/17 Cooper Gastelum APRN.WALKING DRAGLINE OPERATOR [address] [place] [address] Non Destructive Tester Family Medicine 09/17/24 Sallie Bustamante PA-C [address] [facility] [place] [address] Non Destructive Tester Family Medicine 09/17/24 Portainer Operator Relationship Specialty Start Date End Date Roverto Diane MD [address] [place] [address] PCP - General Family Medicine 03/23/17 Cooper Gastelum APRN.WALKING DRAGLINE OPERATOR [address] [place] [address] Non Destructive Tester Family Medicine 09/17/24 Sallie Bustamante PA-C [address] [place] [address] Non Destructive Tester Family Medicine 09/17/24 Portainer Operator Relationship Specialty Start Date End Date Roverto Diane MD [address] [place] [address] PCP - General Family Medicine 03/23/17 Cooper Gastelum, CHUTE BUILDER.WALKING DRAGLINE OPERATOR [address] [place] [address] Non Destructive Tester Family Medicine 09/17/24 Sallie Bustamante PA-C [address] [facility] [place] [address] Non Destructive Tester Family Medicine 09/17/24 Portainer Operator Relationship Specialty Start Date End Date Roverto Diane MD [address] [place] [address] PCP - General Family Medicine 03/23/17 Cooper Gastelum, ASAEL.WALKING DRAGLINE OPERATOR [address] [place] [address] Non Destructive Tester Family Medicine 09/17/24 Sallie Bustamante PA-C [address] [place] [address] Non Destructive Tester Family Medicine 09/17/24 Portainer Operator Relationship Specialty Start Date End Date Roverto Diane MD [address] [place] [address] PCP - General Family Medicine 03/23/17 Cooper Gastelum, CHUTE BUILDER.WALKING DRAGLINE OPERATOR [address] [place] [address] Non Destructive Tester Family Medicine 09/17/24 Sallie Bustamante PA-C [address] [place] [address] Non Destructive Tester Family Medicine 09/17/24 Portainer Operator Relationship Specialty Start Date End Date Roverto Diane MD [address] [place] [address] PCP - General Family Medicine 03/23/17 Cooper Gastelum, CHUTE BUILDER.WALKING DRAGLINE OPERATOR [address] [place] [address] Non Destructive Tester Family Medicine 09/17/24 Sallie Bustamante PA-C [address] [place] [address] Non Destructive Tester Family Medicine 09/17/24 Portainer Operator Relationship Specialty Start Date End Date Roverto Diane MD [address] [place] [address] PCP - General Family Medicine 03/23/17 Cooper Gastelum, ASAEL.WALKING DRAGLINE OPERATOR [address] [place] [address] Non Destructive Tester Family Medicine 09/17/24 Sallie Bustamante PA-C [address] [place] [address] [facility] Portainer Operator Relationship Specialty Start Date End Date Roverto Diane MD [address] [place] [address] PCP - General Family Medicine 03/23/17 Cooper Gastelum, CHUTE BUILDER.WALKING DRAGLINE OPERATOR [address] [place] [address] Non Destructive Tester Family Medicine 09/17/24 Sallie Bustamante PA-C [address] [place] [address] Non Destructive Tester [facility] 09/17/24 Portainer Operator Relationship Specialty Start Date End Date Roverto Diane MD [address] [place] [address] PCP - General Family Medicine 03/23/17 Cooper Gastelum, ASAEL.WALKING DRAGLINE OPERATOR [address] [place] [address] Non Destructive Tester Family Medicine 09/17/24 Sallie Bustamante PA-C [address] [place] [address] Non Destructive Tester [facility] 09/17/24 Portainer Operator Relationship Specialty Start Date End Date Roverto Diane MD [address] [place] [address] PCP - General Family Medicine 03/23/17 Cooper Gastelum, ASAEL.WALKING DRAGLINE OPERATOR [address] [place] [address] Non Destructive Tester Family Medicine 09/17/24 Sallie Bustamante PA-C [address] [place] [address] Non Destructive Tester [facility] 09/17/24 Portainer Operator Relationship Specialty Start Date End Date Roverto Diane MD [address] [place] [address] PCP - General Family Medicine 03/23/17 Cooper Gastelum APRN.WALKING DRAGLINE OPERATOR [address] [place] [address] Non Destructive Tester Family Medicine 09/17/24 Sallie Bustamante PA-C [address] [place] [address] Non Destructive Tester [facility] 09/17/24 Portainer Operator Relationship Specialty Start Date End Date Roverto Diane MD [address] [place] [address] PCP - General Family Medicine 03/23/17 Cooper Gastelum, CHUTE BUILDER.WALKING DRAGLINE OPERATOR [address] [place] [address] Non Destructive Tester [facility] 09/17/24 Sallie Bustamante PA-C [address] [facility] [place] [address] Formerly [facility] 09/17/24 Portainer Operator Relationship Specialty Start Date End Date Roverto Diane MD [address] [facility] [place] [address] PCP - General Family Medicine 03/23/17 Cooper Gastelum APRN.WALKING DRAGLINE OPERATOR [address] [place] [address] Formerly [facility] 09/17/24 Sallie Bustamante PA-C [address] [place] [address] Formerly [facility] 09/17/24 Portainer Operator Relationship Specialty Start Date End Date Roverto Diane MD [address] [place] [address] PCP - General Family Medicine 03/23/17 Cooper Gastelum APRN.WALKING DRAGLINE OPERATOR [address] [place] [address] [facility] Medicine 09/17/24 Sallie Bustamante PA-C [address] [facility] [place] [address] Formerly [facility] 09/17/24 Portainer Operator Relationship Specialty Start Date End Date Roverto Diane MD [address] [place] [address] PCP - General Family Medicine 03/23/17 Cooper Gastelum APRN.WALKING DRAGLINE OPERATOR [address] [place] [address] Non Destructive Tester Family Medicine 09/17/24 Sallie Bustamante PA-C [address] [place] [address] Non Destructive Tester Family Medicine 09/17/24 Portainer Operator Relationship Specialty Start Date End Date Roverto Diane MD [address] [place] [address] PCP - General Family Medicine 03/23/17 Cooper Gastelum APRN.WALKING DRAGLINE OPERATOR [address] [place] [address] Non Destructive Tester Family Medicine 09/17/24 Sallie Bustamante PA-C [address] [place] [address] Non Destructive Tester Family Medicine 09/17/24 Portainer Operator Relationship Specialty Start Date End Date Roverto Diane MD [address] [place] [address] PCP - General Family Medicine 03/23/17 Cooper Gastelum APRN.WALKING DRAGLINE OPERATOR [address] [place] [address] Non Destructive Tester Family Medicine 09/17/24 Sallie Bustamante PA-C [address] [place] [address] Non Destructive Tester Family Medicine 09/17/24 Portainer Operator Relationship Specialty Start Date End Date Roverto Diane MD [address] [place] [address] PCP - General Family Medicine 03/23/17 Cooper Gastelum, ASAEL.WALKING DRAGLINE OPERATOR [address] [place] [address] Non Destructive Tester Family Medicine 09/17/24 Sallie Bustamante PA-C [address] [place] [address] Non Destructive Tester [facility] 09/17/24 Portainer Operator Relationship Specialty Start Date End Date Roverto Diane MD [address] [place] [address] PCP - General Family Medicine 03/23/17 Cooper Gastelum, CHUTE BUILDER.WALKING DRAGLINE OPERATOR [address] [place] [address] Non Destructive Tester Family Medicine 09/17/24 Sallie Bustamante PA-C [address] [place] [address] [facility] Portainer Operator Relationship Specialty Start Date End Date Roverto Diane MD [address] [place] [address] PCP - General Family Medicine 03/23/17 Cooper Gastelum, CHUTE BUILDER.WALKING DRAGLINE OPERATOR [address] [place] [address] Non Destructive Tester Family Medicine 09/17/24 02/26/25 Sallie Bustamante PA-C [address] [place] [address] Non Destructive Tester Family Medicine 09/17/24 Portainer Operator Relationship Specialty Start Date End Date Roverto Diane MD [address] [facility] [place] [address] PCP - General Family Medicine 03/23/17 Sallie Bustamante PA-C [address] [facility] [place] [address] Non Destructive Tester [facility] 09/17/24 Portainer Operator Relationship Specialty Start Date End Date Roverto Diane MD [address] [place] [address] PCP - General Family Medicine 03/23/17 Sallie Bustamante PA-C [address] [facility] [place] [address] Non Destructive Tester Family Medicine 09/17/24 Portainer Operator Relationship Specialty Start Date End Date Roverto Diane MD [address] [place] [address] PCP - General Family Medicine 03/23/17 Cooper Gastelum, ASAEL.WALKING DRAGLINE OPERATOR [address] [place] [address] Non Destructive Tester Family Medicine 09/17/24 02/26/25 Sallie Bustamante PA-C [address] [facility] [place] [address] Non Destructive Tester [facility] 09/17/24 Portainer Operator Relationship Specialty Start Date End Date Roverto Diane MD [address] [facility] [place] [address] PCP - General Family Medicine 03/23/17 Cooper Gastelum, CHUTE BUILDER.WALKING DRAGLINE OPERATOR [address] [place] [address] Non Destructive Tester Family Medicine 03/13/25 Sallie Bustamante PA-C [address] [place] [address] Non Destructive Tester Family Medicine 03/13/25 Portainer Operator Relationship Specialty Start Date End Date Roverto Diane MD [address] [place] [address] PCP - General Family Medicine 03/23/17 Cooper Gastelum, ASAEL.WALKING DRAGLINE OPERATOR [address] [place] [address] Non Destructive Tester Family Medicine 03/13/25 Sallie Bustamante PA-C [address] [place] [address] Non Destructive Tester Family Medicine 03/13/25 Portainer Operator Relationship Specialty Start Date End Date Roverto Diane MD [address] [place] [address] PCP - General Family Medicine 03/23/17 Cooper Gastelum, CHUTE BUILDER.WALKING DRAGLINE OPERATOR [address] [place] [address] Non Destructive Tester Family Medicine 03/13/25 Sallie Bustamante PA-C [address] [place] [address] Non Destructive Tester Family Medicine 03/13/25 Portainer Operator Relationship Specialty Start Date End Date Roverto Diane MD [address] [place] [address] PCP - General Family Medicine 03/23/17 Cooper Gastelum APRN.WALKING DRAGLINE OPERATOR [address] [place] [address] Non Destructive Tester Family Medicine 03/13/25 Sallie Bustamante PA-C [address] [place] [address] Non Destructive Tester Family Medicine 03/13/25 Portainer Operator Relationship Specialty Start Date End Date Roverto Diane MD [address] [place] [address] PCP - General Family Medicine 03/23/17 Cooper Gastelum APRN.WALKING DRAGLINE OPERATOR [address] [place] [address] Non Destructive Tester Family Medicine 03/13/25 Sallie Bustamante PA-C [address] [place] [address] [facility] 03/13/25 Portainer Operator Relationship Specialty Start Date End Date Roverto Diane MD [address] [place] [address] PCP - General Family Medicine 03/23/17 Cooper Gastelum APRN.WALKING DRAGLINE OPERATOR [address] [place] [address] Non Destructive Tester Family Medicine 09/17/24 02/26/25 Sallie Bustamante PA-C [address] [place] [address] Non Destructive Tester Family Medicine 09/17/24 03/12/25 Cooper Gastelum, ASAEL.WALKING DRAGLINE OPERATOR [address] [place] [address] Non Destructive Tester Family Medicine 03/13/25 Sallie Bustamante PA-C [address] [place] [address] Non Destructive Tester Family Medicine 03/13/25 Portainer Operator Relationship Specialty Start Date End Date Roverto Diane MD [address] [place] [address] PCP - General Family Medicine 03/23/17 Cooper Gastelum, CHUTE BUILDER.WALKING DRAGLINE OPERATOR [address] [place] [address] Non Destructive Tester Family Medicine 09/17/24 02/26/25 Sallie Bustamante PA-C [address] [place] [address] Non Destructive Tester Family Medicine 09/17/24 03/12/25 Cooper Gastelum, CHUTE BUILDER.WALKING DRAGLINE OPERATOR [address] [place] [address] Non Destructive Tester Family Medicine 03/13/25 Sallie Bustamante PA-C [address] [place] [address] Non Destructive Tester Family Medicine 03/13/25 Portainer Operator Relationship Specialty Start Date End Date Roverto Diane MD [address] [place] [address] PCP - General Family Medicine 03/23/17 Sallie Bustamante PA-C [address] [place] [address] Non Destructive Tester Family Medicine 09/17/24 03/12/25 Cooper Gastelum APRN.WALKING DRAGLINE OPERATOR [address] [place] [address] Non Destructive Tester Family Medicine 03/13/25 Sallie Bustamante PA-C [address] [place] [address] Non Destructive Tester Family Medicine 03/13/25 Portainer Operator Relationship Specialty Start Date End Date Roverto Diane MD [address] [place] [address] PCP - General Family Medicine 03/23/17 Cooper Gastelum APRN.WALKING DRAGLINE OPERATOR [address] [place] [address] Non Destructive Tester Family Medicine 03/13/25 Sallie Bustamante PA-C [address] [place] [address] Non Destructive Tester Family Medicine 03/13/25 Portainer Operator Relationship Specialty Start Date End Date Roverto Diane MD [address] [place] [address] PCP - General Family Medicine 03/23/17 Cooper Gastelum, CHUTE BUILDER.WALKING DRAGLINE OPERATOR [address] [place] [address] Non Destructive Tester Family Medicine 03/13/25 Sallie Bustamante PA-C [address] [place] [address] Non Destructive Tester Family [facility] 03/13/25 Portainer Operator Relationship Specialty Start Date End Date Roverto Diane MD [address] [facility] [place] [address] PCP - General Family Medicine 03/23/17 Sallie Bustamante PA-C [address] [place] [address] Non Destructive Tester Family Medicine 09/17/24 03/12/25 Cooper Gastelum APRN.WALKING DRAGLINE OPERATOR [address] [place] [address] Formerly [facility] 03/13/25 Sallie Bustamante PA-C [address] [place] [address] [facility] Medicine 03/13/25 Portainer Operator Relationship Specialty Start Date End Date Roverto Diane MD [address] [place] [address] PCP - General Family Medicine 03/23/17 Cooper Gastelum APRN.WALKING DRAGLINE OPERATOR [address] [place] [address] Non Destructive Tester Family Medicine 03/13/25 Sallie Bustamante PA-C [address] [place] [address] [facility] Medicine 03/13/25 Portainer Operator Relationship Specialty Start Date End Date Roverto Diane MD [address] [facility] [place] [address] PCP - General Family Medicine 03/23/17 Cooper Gastelum APRN.WALKING DRAGLINE OPERATOR [address] [place] [address] Non Destructive Tester [facility] 03/13/25 Sallie Bustamante PA-C [address] [place], [place] [address] Non Destructive Tester [facility] 03/13/25 Team Status: Active Member Role/Relationship Status Dates Dr. Alfredo Barroso MD Primary Care Provider Acti ve Team Status: Inactive Member Role/Relationship Status Dates Dr. Alfredo Barroso MD Primary Care Provider Acti ve Start: March 02, 2025 End: March 02, 2025 Dr. Marietta Lugo MD Attending Provider Active Start: March 02, 2025 End: March 02, 2025 Dr. Marietta Lugo MD Referring Provider Active Start: March 02, 2025 End: March 02, 2025 Team Status: Inactive Member Role/Relationship Status Dates Dr. Alfredo Barroso MD Primary Care Provider Acti ve Start: June 18, 2025 End: June 18, 2025 Dr. Patricia Waite MD Emergency Provider Active S tart: June 18, 2025 End: June 18, 2025 Care Team (unrecognized sect ion and content) Care Team Personnel Name: DAY VELAZQUEZ MD Position: P4 Oncology Provider Med Service: PARTS CLERK PLANT MAINTENANCE-ONC Infusion Therapy Member Role: Primary Care Physician Address: Address: [address] [place] [address] Gynecologic Oncology [place] [id number] Name: DAY VELAZQUEZ MD Position: P4 Oncology Provider Med Service: PARTS CLERK PLANT MAINTENANCE-ONC Infusion Therapy Member Role: Primary Care Physician Address: Address: [address] [place] [address] [place] [address] Care Team Related Persons Name: AZAR ZAMORA Name: MIKI BRUCE Name: DICK DOMINGUEZ Care Team Personnel Name: DAY VELAZQUEZ MD Position: P4 Oncology Provider Med Service: PARTS CLERK PLANT MAINTENANCE-ONC Infusion Therapy Member Role: Primary Care Physician Address: Address: [address] [place] [address] Gynecologic Oncology [place], [place] [address] Name: DAY VELAZQUEZ MD Position: P4 Oncology Provider Med Service: PARTS CLERK PLANT MAINTENANCE-ONC Infusion Therapy Member Role: Primary Care Physician Address: Address: [address] [place] [address] [place] [address]- Care Team Related Persons Name: AZAR ZAMORA Name: NAILS, JADEN Name: DICK DOMINGUEZ Care Team Personnel Name: DAY VELAZQUEZ MD Position: P4 Oncology Provider Member Role: Primary Care Physician Address: Address: [address] [place] [address] [place] [address]- Care Team Related Persons Name: AZAR ZAMORA Address: Home [address] [place], [place] [id number] Name: NAILS, JADEN Name: DICK DOMINGUEZ Care Team Personnel Name: DAY VELAZQUEZ MD Position: P4 Oncology Provider Member Role: Primary Care Physician Address: Address: [address] [place] [address] Gynecologic Oncology [place], [place] [address] Care Team Related Persons Name: AZAR ZAMORA Address: Home [address] [place], [place] [id number] Name: NAILS, JADEN Name: DICK DOMINGUEZ Care Team Personnel Name: DAY VELAZQUEZ MD Position: P4 Oncology Provider Member Role: Primary Care Physician Address: Address: [address] [place] [address] [place] [address]- Care Team Related Persons Name: AZAR ZAMORA Address: Home [address] [place], [place] [id number] Name: NAILS, JADEN Name: DICK DOMINGUEZ Care Team Personnel Name: DAY VELAZQUEZ MD Position: P4 Oncology Provider Member Role: Primary Care Physician Address: Address: [address] [place] [address] [place] [address]- Care Team Related Persons Name: AZAR ZAMORA Address: [address] [place], [place] [id number] Name: NAILS, JADEN Name: DICK DOMINGUEZ Care Team Personnel Name: LISA HUMPHREY DO Position: P4 Physician - General Surgery Member Role: Surgeon Address: Address: [address] [place] [address] General [place] [address] Name: DAY VELAZQUEZ MD Position: P4 Oncology Provider Member Role: Primary Care Physician Address: Address: [address] [place] [address] Gynecologic Oncology [place], [place] [address] Care Team Related Persons Name: AZAR ZAMORA Address: [place] [address] [facility], [place] [id number] Name: MIKI BRUCE Name: DICK DOMINGUEZ Care Team Personnel Name: LISA HUMPHREY DO Position: P4 Physician - General Surgery Member Role: Surgeon Address: Address: [address] [place] [address] General Surgery [place], [address] Name: DAY VELAZQUEZ MD Position: P4 Oncology Provider Member Role: Primary Care Physician Address: Address: [address] [place] [address] Gynecologic Oncology [place], [place] [address] Care Team Related Persons Name: AZAR ZAMORA Address: [place] [address] [facility] [place], [place] [id number] Name: MIKI BRUCE Name: DICK DOMINGUEZ Source Comments (unrecognize d section and content) In the event this informatio n is protected by the Federal Confidentiality of Alcohol and Drug Abuse Patient Records regulations: The Federal rules restrict any use of the information to criminally investigate or prosecute any alcohol or drug abuse patient.[facility] the event this information is protected by the Federal Confidentiality of Alcohol and Drug Abuse Patient Records regulations: The Federal rules restrict any use of the information to criminally investigate or prosecute any alcohol or drug abuse patient.[facility] the event this information is protected by the Federal Confidentiality of Alcohol and Drug Abuse Patient Records regulations: The Federal rules restrict any use of the information to criminally investigate or prosecute any alcohol or drug abuse patient.[facility] the event this information is protected by the Federal Confidentiality of Alcohol and Drug Abuse Patient Records regulations: The Federal rules restrict any use of the information to criminally investigate or prosecute any alcohol or drug abuse patient.[facility] the event this information is protected by the Federal Confidentiality of Alcohol and Drug Abuse Patient Records regulations: The Federal rules restrict any use of the information to criminally investigate or prosecute any alcohol or drug abuse patient.[facility] the event this information is protected by the Federal Confidentiality of Alcohol and Drug Abuse Patient Records regulations: The Federal rules restrict any use of the information to criminally investigate or prosecute any alcohol or drug abuse patient.[facility] the event this information is protected by the Federal Confidentiality of Alcohol and Drug Abuse Patient Records regulations: The Federal rules restrict any use of the information to criminally investigate or prosecute any alcohol or drug abuse patient.[facility] the event this information is protected by the Federal Confidentiality of Alcohol and Drug Abuse Patient Records regulations: The Federal rules restrict any use of the information to criminally investigate or prosecute any alcohol or drug abuse patient.[facility] the event this information is protected by the Federal Confidentiality of Alcohol and Drug Abuse Patient Records regulations: The Federal rules restrict any use of the information to criminally investigate or prosecute any alcohol or drug abuse patient.[facility] the event this information is protected by the Federal Confidentiality of Alcohol and Drug Abuse Patient Records regulations: The Federal rules restrict any use of the information to criminally investigate or prosecute any alcohol or drug abuse patient.[facility] the event this information is protected by the Federal Confidentiality of Alcohol and Drug Abuse Patient Records regulations: The Federal rules restrict any use of the information to criminally investigate or prosecute any alcohol or drug abuse patient.[facility] Hospital[facility] the event this information is protected by the Federal Confidentiality of Alcohol and Drug Abuse Patient Records regulations: The Federal rules restrict any use of the information to criminally investigate or prosecute any alcohol or drug abuse patient.[facility] the event this information is protected by the Federal Confidentiality of Alcohol and Drug Abuse Patient Records regulations: The Federal rules restrict any use of the information to criminally investigate or prosecute any alcohol or drug abuse patient.[facility] the event this information is protected by the Federal Confidentiality of Alcohol and Drug Abuse Patient Records regulations: The Federal rules restrict any use of the information to criminally investigate or prosecute any alcohol or drug abuse patient.[facility] Hospital[facility] the event this information is protected by the Federal Confidentiality of Alcohol and Drug Abuse Patient Records regulations: The Federal rules restrict any use of the information to criminally investigate or prosecute any alcohol or drug abuse patient.[facility] HospitalIn the event this information is protected by the Federal Confidentiality of Alcohol and Drug Abuse Patient Records regulations: The Federal rules restrict any use of the information to criminally investigate or prosecute any alcohol or drug abuse patient.[facility] HospitalIn the event this information is protected by the Federal Confidentiality of Alcohol and Drug Abuse Patient Records regulations: The Federal rules restrict any use of the information to criminally investigate or prosecute any alcohol or drug abuse patient.[facility] HospitalIn the event this information is protected by the Federal Confidentiality of Alcohol and Drug Abuse Patient Records regulations: The Federal rules restrict any use of the information to criminally investigate or prosecute any alcohol or drug abuse patient.[facility]In the event this information is protected by the Federal Confidentiality of Alcohol and Drug Abuse Patient Records regulations: The Federal rules restrict any use of the information to criminally investigate or prosecute any alcohol or drug abuse patient.[facility]In the event this information is protected by the Federal Confidentiality of Alcohol and Drug Abuse Patient Records regulations: The Federal rules restrict any use of the information to criminally investigate or prosecute any alcohol or drug abuse patient.[facility]In the event this information is protected by the Federal Confidentiality of Alcohol and Drug Abuse Patient Records regulations: The Federal rules restrict any use of the information to criminally investigate or prosecute any alcohol or drug abuse patient.[facility]In the event this information is protected by the Federal Confidentiality of Alcohol and Drug Abuse Patient Records regulations: The Federal rules restrict any use of the information to criminally investigate or prosecute any alcohol or drug abuse patient.[facility]In the event this information is protected by the Federal Confidentiality of Alcohol and Drug Abuse Patient Records regulations: The Federal rules restrict any use of the information to criminally investigate or prosecute any alcohol or drug abuse patient.[facility]In the event this information is protected by the Federal Confidentiality of Alcohol and Drug Abuse Patient Records regulations: The Federal rules restrict any use of the information to criminally investigate or prosecute any alcohol or drug abuse patient.[facility]In the event this information is protected by the Federal Confidentiality of Alcohol and Drug Abuse Patient Records regulations: The Federal rules restrict any use of the information to criminally investigate or prosecute any alcohol or drug abuse patient.[facility]In the event this information is protected by the Federal Confidentiality of Alcohol and Drug Abuse Patient Records regulations: The Federal rules restrict any use of the information to criminally investigate or prosecute any alcohol or drug abuse patient.[facility]In the event this information is protected by the Federal Confidentiality of Alcohol and Drug Abuse Patient Records regulations: The Federal rules restrict any use of the information to criminally investigate or prosecute any alcohol or drug abuse patient.[facility]In the event this information is protected by the Federal Confidentiality of Alcohol and Drug Abuse Patient Records regulations: The Federal rules restrict any use of the information to criminally investigate or prosecute any alcohol or drug abuse patient.[facility]In the event this information is protected by the Federal Confidentiality of Alcohol and Drug Abuse Patient Records regulations: The Federal rules restrict any use of the information to criminally investigate or prosecute any alcohol or drug abuse patient.[facility]In the event this information is protected by the Federal Confidentiality of Alcohol and Drug Abuse Patient Records regulations: The Federal rules restrict any use of the information to criminally investigate or prosecute any alcohol or drug abuse patient.[facility]In the event this information is protected by the Federal Confidentiality of Alcohol and Drug Abuse Patient Records regulations: The Federal rules restrict any use of the information to criminally investigate or prosecute any alcohol or drug abuse patient.[facility]In the event this information is protected by the Federal Confidentiality of Alcohol and Drug Abuse Patient Records regulations: The Federal rules restrict any use of the information to criminally investigate or prosecute any alcohol or drug abuse patient.[facility]In the event this information is protected by the Federal Confidentiality of Alcohol and Drug Abuse Patient Records regulations: The Federal rules restrict any use of the information to criminally investigate or prosecute any alcohol or drug abuse patient.[facility]In the event this information is protected by the Federal Confidentiality of Alcohol and Drug Abuse Patient Records regulations: The Federal rules restrict any use of the information to criminally investigate or prosecute any alcohol or drug abuse patient.[facility]In the event this information is protected by the Federal Confidentiality of Alcohol and Drug Abuse Patient Records regulations: The Federal rules restrict any use of the information to criminally investigate or prosecute any alcohol or drug abuse patient.[facility]In the event this information is protected by the Federal Confidentiality of Alcohol and Drug Abuse Patient Records regulations: The Federal rules restrict any use of the information to criminally investigate or prosecute any alcohol or drug abuse patient.[facility] HospitalIn the event this information is protected by the Federal Confidentiality of Alcohol and Drug Abuse Patient Records regulations: The Federal rules restrict any use of the information to criminally investigate or prosecute any alcohol or drug abuse patient.[facility] HospitalIn the event this information is protected by the Federal Confidentiality of Alcohol and Drug Abuse Patient Records regulations: The Federal rules restrict any use of the information to criminally investigate or prosecute any alcohol or drug abuse patient.[facility] HospitalIn the event this information is protected by the Federal Confidentiality of Alcohol and Drug Abuse Patient Records regulations: The Federal rules restrict any use of the information to criminally investigate or prosecute any alcohol or drug abuse patient.[facility]In the event this information is protected by the Federal Confidentiality of Alcohol and Drug Abuse Patient Records regulations: The Federal rules restrict any use of the information to criminally investigate or prosecute any alcohol or drug abuse patient.[facility]In the event this information is protected by the Federal Confidentiality of Alcohol and Drug Abuse Patient Records regulations: The Federal rules restrict any use of the information to criminally investigate or prosecute any alcohol or drug abuse patient.[facility] HospitalIn the event this information is protected by the Federal Confidentiality of Alcohol and Drug Abuse Patient Records regulations: The Federal rules restrict any use of the information to criminally investigate or prosecute any alcohol or drug abuse patient.[facility] HospitalIn the event this information is protected by the Federal Confidentiality of Alcohol and Drug Abuse Patient Records regulations: The Federal rules restrict any use of the information to criminally investigate or prosecute any alcohol or drug abuse patient.[facility] HospitalIn the event this information is protected by the Federal Confidentiality of Alcohol and Drug Abuse Patient Records regulations: The Federal rules restrict any use of the information to criminally investigate or prosecute any alcohol or drug abuse patient.[facility] HospitalIn the event this information is protected by the Federal Confidentiality of Alcohol and Drug Abuse Patient Records regulations: The Federal rules restrict any use of the information to criminally investigate or prosecute any alcohol or drug abuse patient.[facility] HospitalIn the event this information is protected by the Federal Confidentiality of Alcohol and Drug Abuse Patient Records regulations: The Federal rules restrict any use of the information to criminally investigate or prosecute any alcohol or drug abuse patient.[facility] HospitalIn the event this information is protected by the Federal Confidentiality of Alcohol and Drug Abuse Patient Records regulations: The Federal rules restrict any use of the information to criminally investigate or prosecute any alcohol or drug abuse patient.[facility] HospitalIn the event this information is protected by the Federal Confidentiality of Alcohol and Drug Abuse Patient Records regulations: The Federal rules restrict any use of the information to criminally investigate or prosecute any alcohol or drug abuse patient.[facility] HospitalIn the event this information is protected by the Federal Confidentiality of Alcohol and Drug Abuse Patient Records regulations: The Federal rules restrict any use of the information to criminally investigate or prosecute any alcohol or drug abuse patient.[facility] HospitalIn the event this information is protected by the Federal Confidentiality of Alcohol and Drug Abuse Patient Records regulations: The Federal rules restrict any use of the information to criminally investigate or prosecute any alcohol or drug abuse patient.[facility] HospitalIn the event this information is protected by the Federal Confidentiality of Alcohol and Drug Abuse Patient Records regulations: The Federal rules restrict any use of the information to criminally investigate or prosecute any alcohol or drug abuse patient.[facility] HospitalIn the event this information is protected by the Federal Confidentiality of Alcohol and Drug Abuse Patient Records regulations: The Federal rules restrict any use of the information to criminally investigate or prosecute any alcohol or drug abuse patient.[facility] HospitalIn the event this information is protected by the Federal Confidentiality of Alcohol and Drug Abuse Patient Records regulations: The Federal rules restrict any use of the information to criminally investigate or prosecute any alcohol or drug abuse patient.[facility] HospitalIn the event this information is protected by the Federal Confidentiality of Alcohol and Drug Abuse Patient Records regulations: The Federal rules restrict any use of the information to criminally investigate or prosecute any alcohol or drug abuse patient.[facility] HospitalIn the event this information is protected by the Federal Confidentiality of Alcohol and Drug Abuse Patient Records regulations: The Federal rules restrict any use of the information to criminally investigate or prosecute any alcohol or drug abuse patient.[facility] HospitalIn the event this information is protected by the Federal Confidentiality of Alcohol and Drug Abuse Patient Records regulations: The Federal rules restrict any use of the information to criminally investigate or prosecute any alcohol or drug abuse patient.[facility] HospitalIn the event this information is protected by the Federal Confidentiality of Alcohol and Drug Abuse Patient Records regulations: The Federal rules restrict any use of the information to criminally investigate or prosecute any alcohol or drug abuse patient.[facility] HospitalIn the event this information is protected by the Federal Confidentiality of Alcohol and Drug Abuse Patient Records regulations: The Federal rules restrict any use of the information to criminally investigate or prosecute any alcohol or drug abuse patient.[facility] HospitalIn the event this information is protected by the Federal Confidentiality of Alcohol and Drug Abuse Patient Records regulations: The Federal rules restrict any use of the information to criminally investigate or prosecute any alcohol or drug abuse patient.[facility] HospitalIn the event this information is protected by the Federal Confidentiality of Alcohol and Drug Abuse Patient Records regulations: The Federal rules restrict any use of the information to criminally investigate or prosecute any alcohol or drug abuse patient.[facility] HospitalIn the event this information is protected by the Federal Confidentiality of Alcohol and Drug Abuse Patient Records regulations: The Federal rules restrict any use of the information to criminally investigate or prosecute any alcohol or drug abuse patient.[facility] HospitalIn the event this information is protected by the Federal Confidentiality of Alcohol and Drug Abuse Patient Records regulations: The Federal rules restrict any use of the information to criminally investigate or prosecute any alcohol or drug abuse patient.[facility] HospitalIn the event this information is protected by the Federal Confidentiality of Alcohol and Drug Abuse Patient Records regulations: The Federal rules restrict any use of the information to criminally investigate or prosecute any alcohol or drug abuse patient.[facility] HospitalIn the event this information is protected by the Federal Confidentiality of Alcohol and Drug Abuse Patient Records regulations: The Federal rules restrict any use of the information to criminally investigate or prosecute any alcohol or drug abuse patient.[facility] HospitalIn the event this information is protected by the Federal Confidentiality of Alcohol and Drug Abuse Patient Records regulations: The Federal rules restrict any use of the information to criminally investigate or prosecute any alcohol or drug abuse patient.[facility] HospitalIn the event this information is protected by the Federal Confidentiality of Alcohol and Drug Abuse Patient Records regulations: The Federal rules restrict any use of the information to criminally investigate or prosecute any alcohol or drug abuse patient.[facility] HospitalIn the event this information is protected by the Federal Confidentiality of Alcohol and Drug Abuse Patient Records regulations: The Federal rules restrict any use of the information to criminally investigate or prosecute any alcohol or drug abuse patient.[facility] HospitalIn the event this information is protected by the Federal Confidentiality of Alcohol and Drug Abuse Patient Records regulations: The Federal rules restrict any use of the information to criminally investigate or prosecute any alcohol or drug abuse patient.[facility] HospitalIn the event this information is protected by the Federal Confidentiality of Alcohol and Drug Abuse Patient Records regulations: The Federal rules restrict any use of the information to criminally investigate or prosecute any alcohol or drug abuse patient.[facility] HospitalIn the event this information is protected by the Federal Confidentiality of Alcohol and Drug Abuse Patient Records regulations: The Federal rules restrict any use of the information to criminally investigate or prosecute any alcohol or drug abuse patient.[facility] HospitalIn the event this information is protected by the Federal Confidentiality of Alcohol and Drug Abuse Patient Records regulations: The Federal rules restrict any use of the information to criminally investigate or prosecute any alcohol or drug abuse patient.[facility] HospitalIn the event this information is protected by the Federal Confidentiality of Alcohol and Drug Abuse Patient Records regulations: The Federal rules restrict any use of the information to criminally investigate or prosecute any alcohol or drug abuse patient.[facility] HospitalIn the event this information is protected by the Federal Confidentiality of Alcohol and Drug Abuse Patient Records regulations: The Federal rules restrict any use of the information to criminally investigate or prosecute any alcohol or drug abuse patient.[facility] HospitalIn the event this information is protected by the Federal Confidentiality of Alcohol and Drug Abuse Patient Records regulations: The Federal rules restrict any use of the information to criminally investigate or prosecute any alcohol or drug abuse patient.[facility] HospitalIn the event this information is protected by the Federal Confidentiality of Alcohol and Drug Abuse Patient Records regulations: The Federal rules restrict any use of the information to criminally investigate or prosecute any alcohol or drug abuse patient.[facility] HospitalIn the event this information is protected by the Federal Confidentiality of Alcohol and Drug Abuse Patient Records regulations: The Federal rules restrict any use of the information to criminally investigate or prosecute any alcohol or drug abuse patient.[facility] HospitalIn the event this information is protected by the Federal Confidentiality of Alcohol and Drug Abuse Patient Records regulations: The Federal rules restrict any use of the information to criminally investigate or prosecute any alcohol or drug abuse patient.[facility] HospitalIn the event this information is protected by the Federal Confidentiality of Alcohol and Drug Abuse Patient Records regulations: The Federal rules restrict any use of the information to criminally investigate or prosecute any alcohol or drug abuse patient.[facility] HospitalIn the event this information is protected by the Federal Confidentiality of Alcohol and Drug Abuse Patient Records regulations: The Federal rules restrict any use of the information to criminally investigate or prosecute any alcohol or drug abuse patient.[facility] HospitalIn the event this information is protected by the Federal Confidentiality of Alcohol and Drug Abuse Patient Records regulations: The Federal rules restrict any use of the information to criminally investigate or prosecute any alcohol or drug abuse patient.[facility] HospitalIn the event this information is protected by the Federal Confidentiality of Alcohol and Drug Abuse Patient Records regulations: The Federal rules restrict any use of the information to criminally investigate or prosecute any alcohol or drug abuse patient.[facility] HospitalIn the event this information is protected by the Federal Confidentiality of Alcohol and Drug Abuse Patient Records regulations: The Federal rules restrict any use of the information to criminally investigate or prosecute any alcohol or drug abuse patient.[facility] HospitalIn the event this information is protected by the Federal Confidentiality of Alcohol and Drug Abuse Patient Records regulations: The Federal rules restrict any use of the information to criminally investigate or prosecute any alcohol or drug abuse patient.[facility] HospitalIn the event this information is protected by the Federal Confidentiality of Alcohol and Drug Abuse Patient Records regulations: The Federal rules restrict any use of the information to criminally investigate or prosecute any alcohol or drug abuse patient.[facility] HospitalIn the event this information is protected by the Federal Confidentiality of Alcohol and Drug Abuse Patient Records regulations: The Federal rules restrict any use of the information to criminally investigate or prosecute any alcohol or drug abuse patient.[facility] HospitalIn the event this information is protected by the Federal Confidentiality of Alcohol and Drug Abuse Patient Records regulations: The Federal rules restrict any use of the information to criminally investigate or prosecute any alcohol or drug abuse patient.[facility] HospitalIn the event this information is protected by the Federal Confidentiality of Alcohol and Drug Abuse Patient Records regulations: The Federal rules restrict any use of the information to criminally investigate or prosecute any alcohol or drug abuse patient.[facility]In the event this information is protected by the Federal Confidentiality of Alcohol and Drug Abuse Patient Records regulations: The Federal rules restrict any use of the information to criminally investigate or prosecute any alcohol or drug abuse patient.[facility] HospitalIn the event this information is protected by the Federal Confidentiality of Alcohol and Drug Abuse Patient Records regulations: The Federal rules restrict any use of the information to criminally investigate or prosecute any alcohol or drug abuse patient.[facility]In the event this information is protected by the Federal Confidentiality of Alcohol and Drug Abuse Patient Records regulations: The Federal rules restrict any use of the information to criminally investigate or prosecute any alcohol or drug abuse patient.[facility] HospitalIn the event this information is protected by the Federal Confidentiality of Alcohol and Drug Abuse Patient Records regulations: The Federal rules restrict any use of the information to criminally investigate or prosecute any alcohol or drug abuse patient.[facility]In the event this information is protected by the Federal Confidentiality of Alcohol and Drug Abuse Patient Records regulations: The Federal rules restrict any use of the information to criminally investigate or prosecute any alcohol or drug abuse patient.[facility] HospitalIn the event this information is protected by the Federal Confidentiality of Alcohol and Drug Abuse Patient Records regulations: The Federal rules restrict any use of the information to criminally investigate or prosecute any alcohol or drug abuse patient.[facility]In the event this information is protected by the Federal Confidentiality of Alcohol and Drug Abuse Patient Records regulations: The Federal rules restrict any use of the information to criminally investigate or prosecute any alcohol or drug abuse patient.[facility]In the event this information is protected by the Federal Confidentiality of Alcohol and Drug Abuse Patient Records regulations: The Federal rules restrict any use of the information to criminally investigate or prosecute any alcohol or drug abuse patient.[facility] HospitalIn the event this information is protected by the Federal Confidentiality of Alcohol and Drug Abuse Patient Records regulations: The Federal rules restrict any use of the information to criminally investigate or prosecute any alcohol or drug abuse patient.[facility]In the event this information is protected by the Federal Confidentiality of Alcohol and Drug Abuse Patient Records regulations: The Federal rules restrict any use of the information to criminally investigate or prosecute any alcohol or drug abuse patient.[facility] HospitalIn the event this information is protected by the Federal Confidentiality of Alcohol and Drug Abuse Patient Records regulations: The Federal rules restrict any use of the information to criminally investigate or prosecute any alcohol or drug abuse patient.[facility] HospitalIn the event this information is protected by the Federal Confidentiality of Alcohol and Drug Abuse Patient Records regulations: The Federal rules restrict any use of the information to criminally investigate or prosecute any alcohol or drug abuse patient.[facility] HospitalIn the event this information is protected by the Federal Confidentiality of Alcohol and Drug Abuse Patient Records regulations: The Federal rules restrict any use of the information to criminally investigate or prosecute any alcohol or drug abuse patient.[facility] HospitalIn the event this information is protected by the Federal Confidentiality of Alcohol and Drug Abuse Patient Records regulations: The Federal rules restrict any use of the information to criminally investigate or prosecute any alcohol or drug abuse patient.[facility]In the event this information is protected by the Federal Confidentiality of Alcohol and Drug Abuse Patient Records regulations: The Federal rules restrict any use of the information to criminally investigate or prosecute any alcohol or drug abuse patient.[facility] HospitalIn the event this information is protected by the Federal Confidentiality of Alcohol and Drug Abuse Patient Records regulations: The Federal rules restrict any use of the information to criminally investigate or prosecute any alcohol or drug abuse patient.[facility] HospitalIn the event this information is protected by the Federal Confidentiality of Alcohol and Drug Abuse Patient Records regulations: The Federal rules restrict any use of the information to criminally investigate or prosecute any alcohol or drug abuse patient.[facility] HospitalIn the event this information is protected by the Federal Confidentiality of Alcohol and Drug Abuse Patient Records regulations: The Federal rules restrict any use of the information to criminally investigate or prosecute any alcohol or drug abuse patient.[facility] HospitalIn the event this information is protected by the Federal Confidentiality of Alcohol and Drug Abuse Patient Records regulations: The Federal rules restrict any use of the information to criminally investigate or prosecute any alcohol or drug abuse patient.[facility] HospitalIn the event this information is protected by the Federal Confidentiality of Alcohol and Drug Abuse Patient Records regulations: The Federal rules restrict any use of the information to criminally investigate or prosecute any alcohol or drug abuse patient.[facility] HospitalIn the event this information is protected by the Federal Confidentiality of Alcohol and Drug Abuse Patient Records regulations: The Federal rules restrict any use of the information to criminally investigate or prosecute any alcohol or drug abuse patient.[facility] HospitalIn the event this information is protected by the Federal Confidentiality of Alcohol and Drug Abuse Patient Records regulations: The Federal rules restrict any use of the information to criminally investigate or prosecute any alcohol or drug abuse patient.[facility] HospitalIn the event this information is protected by the Federal Confidentiality of Alcohol and Drug Abuse Patient Records regulations: The Federal rules restrict any use of the information to criminally investigate or prosecute any alcohol or drug abuse patient.[facility] HospitalIn the event this information is protected by the Federal Confidentiality of Alcohol and Drug Abuse Patient Records regulations: The Federal rules restrict any use of the information to criminally investigate or prosecute any alcohol or drug abuse patient.[facility] HospitalIn the event this information is protected by the Federal Confidentiality of Alcohol and Drug Abuse Patient Records regulations: The Federal rules restrict any use of the information to criminally investigate or prosecute any alcohol or drug abuse patient.[facility] HospitalIn the event this information is protected by the Federal Confidentiality of Alcohol and Drug Abuse Patient Records regulations: The Federal rules restrict any use of the information to criminally investigate or prosecute any alcohol or drug abuse patient.[facility] HospitalIn the event this information is protected by the Federal Confidentiality of Alcohol and Drug Abuse Patient Records regulations: The Federal rules restrict any use of the information to criminally investigate or prosecute any alcohol or drug abuse patient.[facility] HospitalIn the event this information is protected by the Federal Confidentiality of Alcohol and Drug Abuse Patient Records regulations: The Federal rules restrict any use of the information to criminally investigate or prosecute any alcohol or drug abuse patient.[facility] HospitalIn the event this information is protected by the Federal Confidentiality of Alcohol and Drug Abuse Patient Records regulations: The Federal rules restrict any use of the information to criminally investigate or prosecute any alcohol or drug abuse patient.[facility] HospitalIn the event this information is protected by the Federal Confidentiality of Alcohol and Drug Abuse Patient Records regulations: The Federal rules restrict any use of the information to criminally investigate or prosecute any alcohol or drug abuse patient.[facility] HospitalIn the event this information is protected by the Federal Confidentiality of Alcohol and Drug Abuse Patient Records regulations: The Federal rules restrict any use of the information to criminally investigate or prosecute any alcohol or drug abuse patient.[facility] HospitalIn the event this information is protected by the Federal Confidentiality of Alcohol and Drug Abuse Patient Records regulations: The Federal rules restrict any use of the information to criminally investigate or prosecute any alcohol or drug abuse patient.[facility] HospitalIn the event this information is protected by the Federal Confidentiality of Alcohol and Drug Abuse Patient Records regulations: The Federal rules restrict any use of the information to criminally investigate or prosecute any alcohol or drug abuse patient.[facility] HospitalIn the event this information is protected by the Federal Confidentiality of Alcohol and Drug Abuse Patient Records regulations: The Federal rules restrict any use of the information to criminally investigate or prosecute any alcohol or drug abuse patient.[facility] HospitalIn the event this information is protected by the Federal Confidentiality of Alcohol and Drug Abuse Patient Records regulations: The Federal rules restrict any use of the information to criminally investigate or prosecute any alcohol or drug abuse patient.[facility] HospitalIn the event this information is protected by the Federal Confidentiality of Alcohol and Drug Abuse Patient Records regulations: The Federal rules restrict any use of the information to criminally investigate or prosecute any alcohol or drug abuse patient.[facility] HospitalIn the event this information is protected by the Federal Confidentiality of Alcohol and Drug Abuse Patient Records regulations: The Federal rules restrict any use of the information to criminally investigate or prosecute any alcohol or drug abuse patient.[facility] HospitalIn the event this information is protected by the Federal Confidentiality of Alcohol and Drug Abuse Patient Records regulations: The Federal rules restrict any use of the information to criminally investigate or prosecute any alcohol or drug abuse patient.[facility] HospitalIn the event this information is protected by the Federal Confidentiality of Alcohol and Drug Abuse Patient Records regulations: The Federal rules restrict any use of the information to criminally investigate or prosecute any alcohol or drug abuse patient.[facility] HospitalIn the event this information is protected by the Federal Confidentiality of Alcohol and Drug Abuse Patient Records regulations: The Federal rules restrict any use of the information to criminally investigate or prosecute any alcohol or drug abuse patient.[facility] HospitalIn the event this information is protected by the Federal Confidentiality of Alcohol and Drug Abuse Patient Records regulations: The Federal rules restrict any use of the information to criminally investigate or prosecute any alcohol or drug abuse patient.[facility] HospitalIn the event this information is protected by the Federal Confidentiality of Alcohol and Drug Abuse Patient Records regulations: The Federal rules restrict any use of the information to criminally investigate or prosecute any alcohol or drug abuse patient.[facility] HospitalIn the event this information is protected by the Federal Confidentiality of Alcohol and Drug Abuse Patient Records regulations: The Federal rules restrict any use of the information to criminally investigate or prosecute any alcohol or drug abuse patient.[facility] HospitalIn the event this information is protected by the Federal Confidentiality of Alcohol and Drug Abuse Patient Records regulations: The Federal rules restrict any use of the information to criminally investigate or prosecute any alcohol or drug abuse patient.[facility] HospitalIn the event this information is protected by the Federal Confidentiality of Alcohol and Drug Abuse Patient Records regulations: The Federal rules restrict any use of the information to criminally investigate or prosecute any alcohol or drug abuse patient.[facility] HospitalIn the event this information is protected by the Federal Confidentiality of Alcohol and Drug Abuse Patient Records regulations: The Federal rules restrict any use of the information to criminally investigate or prosecute any alcohol or drug abuse patient.[facility] HospitalIn the event this information is protected by the Federal Confidentiality of Alcohol and Drug Abuse Patient Records regulations: The Federal rules restrict any use of the information to criminally investigate or prosecute any alcohol or drug abuse patient.[facility] HospitalIn the event this information is protected by the Federal Confidentiality of Alcohol and Drug Abuse Patient Records regulations: The Federal rules restrict any use of the information to criminally investigate or prosecute any alcohol or drug abuse patient.[facility] HospitalIn the event this information is protected by the Federal Confidentiality of Alcohol and Drug Abuse Patient Records regulations: The Federal rules restrict any use of the information to criminally investigate or prosecute any alcohol or drug abuse patient.[facility] HospitalIn the event this information is protected by the Federal Confidentiality of Alcohol and Drug Abuse Patient Records regulations: The Federal rules restrict any use of the information to criminally investigate or prosecute any alcohol or drug abuse patient.[facility] HospitalIn the event this information is protected by the Federal Confidentiality of Alcohol and Drug Abuse Patient Records regulations: The Federal rules restrict any use of the information to criminally investigate or prosecute any alcohol or drug abuse patient.[facility] HospitalIn the event this information is protected by the Federal Confidentiality of Alcohol and Drug Abuse Patient Records regulations: The Federal rules restrict any use of the information to criminally investigate or prosecute any alcohol or drug abuse patient.[facility] HospitalIn the event this information is protected by the Federal Confidentiality of Alcohol and Drug Abuse Patient Records regulations: The Federal rules restrict any use of the information to criminally investigate or prosecute any alcohol or drug abuse patient.[facility] HospitalIn the event this information is protected by the Federal Confidentiality of Alcohol and Drug Abuse Patient Records regulations: The Federal rules restrict any use of the information to criminally investigate or prosecute any alcohol or drug abuse patient.[facility] HospitalIn the event this information is protected by the Federal Confidentiality of Alcohol and Drug Abuse Patient Records regulations: The Federal rules restrict any use of the information to criminally investigate or prosecute any alcohol or drug abuse patient.[facility] HospitalIn the event this information is protected by the Federal Confidentiality of Alcohol and Drug Abuse Patient Records regulations: The Federal rules restrict any use of the information to criminally investigate or prosecute any alcohol or drug abuse patient.[facility] HospitalIn the event this information is protected by the Federal Confidentiality of Alcohol and Drug Abuse Patient Records regulations: The Federal rules restrict any use of the information to criminally investigate or prosecute any alcohol or drug abuse patient.[facility] HospitalIn the event this information is protected by the Federal Confidentiality of Alcohol and Drug Abuse Patient Records regulations: The Federal rules restrict any use of the information to criminally investigate or prosecute any alcohol or drug abuse patient.[facility] HospitalIn the event this information is protected by the Federal Confidentiality of Alcohol and Drug Abuse Patient Records regulations: The Federal rules restrict any use of the information to criminally investigate or prosecute any alcohol or drug abuse patient.[facility] HospitalIn the event this information is protected by the Federal Confidentiality of Alcohol and Drug Abuse Patient Records regulations: The Federal rules restrict any use of the information to criminally investigate or prosecute any alcohol or drug abuse patient.[facility] HospitalIn the event this information is protected by the Federal Confidentiality of Alcohol and Drug Abuse Patient Records regulations: The Federal rules restrict any use of the information to criminally investigate or prosecute any alcohol or drug abuse patient.[facility] HospitalIn the event this information is protected by the Federal Confidentiality of Alcohol and Drug Abuse Patient Records regulations: The Federal rules restrict any use of the information to criminally investigate or prosecute any alcohol or drug abuse patient.[facility] HospitalIn the event this information is protected by the Federal Confidentiality of Alcohol and Drug Abuse Patient Records regulations: The Federal rules restrict any use of the information to criminally investigate or prosecute any alcohol or drug abuse patient.[facility] HospitalIn the event this information is protected by the Federal Confidentiality of Alcohol and Drug Abuse Patient Records regulations: The Federal rules restrict any use of the information to criminally investigate or prosecute any alcohol or drug abuse patient.[facility] HospitalIn the event this information is protected by the Federal Confidentiality of Alcohol and Drug Abuse Patient Records regulations: The Federal rules restrict any use of the information to criminally investigate or prosecute any alcohol or drug abuse patient.[facility] HospitalIn the event this information is protected by the Federal Confidentiality of Alcohol and Drug Abuse Patient Records regulations: The Federal rules restrict any use of the information to criminally investigate or prosecute any alcohol or drug abuse patient.[facility] HospitalIn the event this information is protected by the Federal Confidentiality of Alcohol and Drug Abuse Patient Records regulations: The Federal rules restrict any use of the information to criminally investigate or prosecute any alcohol or drug abuse patient.[facility] HospitalIn the event this information is protected by the Federal Confidentiality of Alcohol and Drug Abuse Patient Records regulations: The Federal rules restrict any use of the information to criminally investigate or prosecute any alcohol or drug abuse patient.[facility] HospitalIn the event this information is protected by the Federal Confidentiality of Alcohol and Drug Abuse Patient Records regulations: The Federal rules restrict any use of the information to criminally investigate or prosecute any alcohol or drug abuse patient.[facility] HospitalIn the event this information is protected by the Federal Confidentiality of Alcohol and Drug Abuse Patient Records regulations: The Federal rules restrict any use of the information to criminally investigate or prosecute any alcohol or drug abuse patient.[facility] HospitalIn the event this information is protected by the Federal Confidentiality of Alcohol and Drug Abuse Patient Records regulations: The Federal rules restrict any use of the information to criminally investigate or prosecute any alcohol or drug abuse patient.[facility] HospitalIn the event this information is protected by the Federal Confidentiality of Alcohol and Drug Abuse Patient Records regulations: The Federal rules restrict any use of the information to criminally investigate or prosecute any alcohol or drug abuse patient.[facility] HospitalIn the event this information is protected by the Federal Confidentiality of Alcohol and Drug Abuse Patient Records regulations: The Federal rules restrict any use of the information to criminally investigate or prosecute any alcohol or drug abuse patient.[facility] HospitalIn the event this information is protected by the Federal Confidentiality of Alcohol and Drug Abuse Patient Records regulations: The Federal rules restrict any use of the information to criminally investigate or prosecute any alcohol or drug abuse patient.[facility] HospitalIn the event this information is protected by the Federal Confidentiality of Alcohol and Drug Abuse Patient Records regulations: The Federal rules restrict any use of the information to criminally investigate or prosecute any alcohol or drug abuse patient.[facility] HospitalIn the event this information is protected by the Federal Confidentiality of Alcohol and Drug Abuse Patient Records regulations: The Federal rules restrict any use of the information to criminally investigate or prosecute any alcohol or drug abuse patient.[facility] HospitalIn the event this information is protected by the Federal Confidentiality of Alcohol and Drug Abuse Patient Records regulations: The Federal rules restrict any use of the information to criminally investigate or prosecute any alcohol or drug abuse patient.[facility] HospitalIn the event this information is protected by the Federal Confidentiality of Alcohol and Drug Abuse Patient Records regulations: The Federal rules restrict any use of the information to criminally investigate or prosecute any alcohol or drug abuse patient.[facility] HospitalIn the event this information is protected by the Federal Confidentiality of Alcohol and Drug Abuse Patient Records regulations: The Federal rules restrict any use of the information to criminally investigate or prosecute any alcohol or drug abuse patient.[facility] HospitalIn the event this information is protected by the Federal Confidentiality of Alcohol and Drug Abuse Patient Records regulations: The Federal rules restrict any use of the information to criminally investigate or prosecute any alcohol or drug abuse patient.[facility] HospitalIn the event this information is protected by the Federal Confidentiality of Alcohol and Drug Abuse Patient Records regulations: The Federal rules restrict any use of the information to criminally investigate or prosecute any alcohol or drug abuse patient.[facility] HospitalIn the event this information is protected by the Federal Confidentiality of Alcohol and Drug Abuse Patient Records regulations: The Federal rules restrict any use of the information to criminally investigate or prosecute any alcohol or drug abuse patient.[facility] HospitalIn the event this information is protected by the Federal Confidentiality of Alcohol and Drug Abuse Patient Records regulations: The Federal rules restrict any use of the information to criminally investigate or prosecute any alcohol or drug abuse patient.[facility] HospitalIn the event this information is protected by the Federal Confidentiality of Alcohol and Drug Abuse Patient Records regulations: The Federal rules restrict any use of the information to criminally investigate or prosecute any alcohol or drug abuse patient.[facility] HospitalIn the event this information is protected by the Federal Confidentiality of Alcohol and Drug Abuse Patient Records regulations: The Federal rules restrict any use of the information to criminally investigate or prosecute any alcohol or drug abuse patient.[facility] HospitalIn the event this information is protected by the Federal Confidentiality of Alcohol and Drug Abuse Patient Records regulations: The Federal rules restrict any use of the information to criminally investigate or prosecute any alcohol or drug abuse patient.[facility] HospitalIn the event this information is protected by the Federal Confidentiality of Alcohol and Drug Abuse Patient Records regulations: The Federal rules restrict any use of the information to criminally investigate or prosecute any alcohol or drug abuse patient.[facility] HospitalIn the event this information is protected by the Federal Confidentiality of Alcohol and Drug Abuse Patient Records regulations: The Federal rules restrict any use of the information to criminally investigate or prosecute any alcohol or drug abuse patient.[facility] HospitalIn the event this information is protected by the Federal Confidentiality of Alcohol and Drug Abuse Patient Records regulations: The Federal rules restrict any use of the information to criminally investigate or prosecute any alcohol or drug abuse patient.[facility] HospitalIn the event this information is protected by the Federal Confidentiality of Alcohol and Drug Abuse Patient Records regulations: The Federal rules restrict any use of the information to criminally investigate or prosecute any alcohol or drug abuse patient.[facility] Goals (unrecognized section and content) Goals [...] BE BASED ON THE PRIMARY CLINICAL RECORDS. [facility]. provides no warranty or guarantee of the accuracy or completeness of information in this document.
--- NOTE | 2025-09-05 21:20 | RAD_ITS ---
PROCEDURE: FOOT MIN 3 VIEWS 09/05/2025 REASON FOR EXAM: Lateral foot pain after daughter placed squatty potty on foot and stepped on it. TECHNIQUE: Procedure Code: RADFO Modality: DX Procedure: FOOT MIN 3 VIEWS Laterality: Right COMPARISON: None. FINDINGS: BONES: No acute fracture or focal osseous lesion. Small plantar calcaneal spur. JOINTS: No dislocation. The joint spaces are normal. SOFT TISSUES: The soft tissues are unremarkable. RAD/Foot min 3 Views IMPRESSION: NO ACUTE FRACTURE OR DISLOCATION. Reading Location: [id number]
[2025-09-05 22:16] VITALS: BP 145/92; PULSE 91; RESP 16; TEMP 36.4; O2SAT 96
--- NOTE | 2025-09-06 00:10 | EDS_ITS ---
HPI History of Present Illness Chief Complaint: Lower Extremity Injury Narrative Narrative: Patient is a 30-year-old female presenting to the emergency department for right foot pain. Patient has a past medical history as below, no significant past medical history to this complaint. Patient states that her daughter dropped a stepstool to the toilet on her right foot and then stepped on her foot. She reports that her daughter weighs about 50 pounds. She denies any other injuries. Did not take anything for pain prior to arrival. Endorsing pain to her right foot. PFSH PFS Medical History Hypotension Dizziness Vitamin D deficiency PCOS (polycystic ovarian syndrome) Obesity GERD (gastroesophageal reflux disease) Hx of deep venous thrombosis History of post traumatic stress disorder SBO (small bowel obstruction) Endometritis Chronic pain Post traumatic stress disorder (PTSD) ADHD (attention deficit hyperactivity disorder) Anxiety Home Medications ?Medication ?Instructions ?Recorded ?Last Taken ?Type phentermine 37.5 mg capsule 37.5 mg PO DAILY 06/18/25 Unknown History Allergy/AdvReac Type Severity Reaction Status Date / Time cat dander Allergy Hives Verified 09/05/25 20:24 house dust Allergy Hives Verified 09/05/25 20:24 peanut Allergy Swelling Verified 09/05/25 20:24 cranberry AdvReac Rash Verified 09/05/25 20:24 mold AdvReac Other Verified 09/05/25 20:24 morphine AdvReac Chest Verified 09/05/25 20:24 tightness Family History Aunt Cancer maternal aunt - uterine/cervical ca Mother Heart disease Father Diabetes Hypertension Grandmother Kidney disease CVA (cerebral vascular accident) Myocardial infarction CAD (coronary artery disease) Diabetes Hypertension Surgical History Hx laparoscopic cholecystectomy Dehiscence of perineal wound Fourth degree perineal laceration History of gynecologic surgery Social History Smoking Status: Former smoker alcohol intake: current alcohol intake frequency: a few times a week Alcohol type: beer substance use type: does not use ROS ROS ED ROS Narrative see HPI EXAM Physical Exam Narrative Exam Narrative: Vital signs: Reviewed General: Alert and orientedx3. No acute distress HEENT: Head is normocephalic and atraumatic, sinuses nontender, pupils equal round and reactive. Nares are patent. Oropharynx and throat exams normal. Neck: Supple without lymphadenopathy nontender Cardiovascular: Regular rate and rhythm, no murmurs. No rubs or gallops. Normal S1 and S2 Respiratory: Clear to auscultation bilaterally. No wheezes, rales, rhonchi Abdominal: Soft and nontender. Normal bowel sounds. No guarding or rebound. Nonsurgical abdomen Extremities: There is some mild tenderness to palpation of the fifth metatarsal. There is no tenderness to palpation of the first metatarsal. There is no ecchymosis noted to the plantar or dorsi portions of the foot. DP and PT pulses are intact bilaterally. There is no tenderness to palpation of the medial or lateral malleolus or the tib fib. 5 out of 5 strength with plantar and dorsi flexion. Sensation intact. Skin: No rash or redness. The rest of the physical exam is unremarkable Const Vital Signs: 09/05/25 20:21 09/05/25 22:16 09/05/25 22:16 Temperature 97.5 F L 97.5 F L Temperature Source Temporal Pulse Rate 90 91 91 Respiratory Rate 18 16 16 Blood Pressure 140/83 H 145/92 H 145/92 H Blood Pressure Mean 102 109 109 Pulse Ox 98 96 96 Oxygen Delivery Method Room Air Room Air MDM MDM MDM Narrative Medical decision making narrative: Patient is a 30-year-old female presenting to the emergency department for right foot pain after traumatic injury. Patient was seen and examined. Vitals are stable. Patient resting in bed comfortably in no acute distress. X-ray imaging of the foot was obtained. Reviewed by myself, no fracture or dislocation noted. Radiology read in agreement. Patient updated on the negative x-ray findings. Given instructions on RICE therapy for home. Instructed to follow-up with her PCP for repeat x-ray in 1 week if she continues to have pain. Offered irma wrap for compression but she declined. Patient discharged from the Emergency Department. I do not feel that the patient's evaluation reveals any acute reason for admission at this time. I instructed them to either follow-up with their primary care physician or promptly return to the Emergency Department for reevaluation should symptoms worsen or new symptoms develop. I explained what symptoms would indicate the need to return to the emergency department. Shared decision making was used. The patient voiced understanding of the treatment plan and is agreeable with it. Clinical impression Injury of right foot Radiography X-Ray: Read by ED Physician, Normal and No Fracture Diagnostic Testing: Clinical Impression(s) from Imaging Studies Foot X-Ray 09/05/25 21:20 IMPRESSION: NO ACUTE FRACTURE OR DISLOCATION. Reading [facility] Discharge Plan Triage Chief Complaint: Lower Extremity Injury ED Provider: Patricia Waite Dx/Rx/DC Orders Clinical Impression: Injury of foot, right Instructions: ED Foot Sprain, ED RICE Prescriptions: No Action phentermine 37.5 mg capsule 37.5 mg PO DAILY Primary Care Provider: Alfredo Barroso Referrals: Alfredo Barroso MD [Primary Care Provider, [facility]] - As soon as possible Activity Restrictions/Additional Instructions: He still have pain in 1 week need to follow-up with your primary care doctor for repeat x-ray. Your evaluation in the Emergency Department did not reveal any acute reason for admission. However, I want to emphasize that you may be early in the course of a disease process or illness even if it is not present. For this reason you should follow-up within 24 hours for reevaluation with either your primary care physician or if necessary back here in the Emergency Department. You should return to the Emergency Department immediately if your symptoms worsen or new symptoms develop. Print Language: Mongolian Disposition Disposition: Home, Self Care Discharge Date/Time: 09/05/25 22:16
== END 2025-09-05 22:16 | disposition home or self-care (01) ==
PROVIDERS: Emergency Provider Student in an Organized Health Care Education/Training Program; PCP Family Medicine; Visit Provider Student in an Organized Health Care Education/Training Program
DX: S99.921A Unspecified injury of right foot, initial encounter (principal); Z87.891 Personal history of nicotine dependence; K21.9 Gastro-esophageal reflux disease without esophagitis; W20.8XXA Other cause of strike by thrown, projected or falling object, initial encounter
CPT/HCPCS: 73630; 99282; A4216

== ENCOUNTER 2025-09-28 12:15 | Emergency (ER) | payer MEDICAID, SELFPAY ==
[2025-09-28 12:16] VITALS: BP 120/79; PULSE 95; RESP 18; TEMP 36.3; O2SAT 98; BMI 48.6
[2025-09-28 12:40] LABS: Hematocrit 41.1 % (37-47); Hemoglobin 13.3 g/dL (12.0-15.0); Immature Granulocytes Count 0.030 X10^3/uL (0.0-0.0); Mean Corp Hgb Conc 32.4 g/dL (32-36); Mean Corpuscular Volume 82.4 fL (81-99); Mean Platelet Vol. 8.1 fl (6.2-12.0); NRBC Flagged by Analyzer 0 % (0-5); Platelet Count 356 K/mm3 (150-450); RBC Distribution Width CV 15.1 % (11.6-14.6); RBC Distribution Width SD 45.6 fl (35.1-43.9); Red Blood Count 4.99 M/mm3 (4.2-5.4); White Blood Count 8.6 K/mm3 (4.4-11.0)
[2025-09-28 12:49] LABS: Internal QC Validated? YES +Cl - CLEAR BKGD; Pregnancy, Serum, hCG Quali. NEGATIVE Negative
[2025-09-28 13:04] LABS: AST(SGOT) 13 U/L (<=31); Alanine Aminotransfer ALT/SGPT 14 U/L (<=34); Albumin, Serum 4.5 g/dL (3.5-5.0); Alkaline Phosphatase 86 U/L (35-104); Anion Gap 13 (5-15); BUN 9 mg/dL (4-19); BUN/Creat Ratio 15.4 RATIO (10-20); Calcium,Total 9.3 mg/dL (7.6-11.0); Carbon Dioxide 24.7 mmol/L (21.0-32.0); Chloride 105 mmol/L (98-108); Estimated Creatinine Clearance 172.31 ml/min (50-250); Globulin 3.0 g/dL (2.2-4.2); Glucose 93 mg/dL (70-99); Lipase 25 U/L (13-75); Potassium 4.4 mmol/L (3.3-5.1)
--- NOTE | 2025-09-28 14:12 | ED.RN ---
Pt stated that she only had one black stool and wanted IV out to go to another hospital. I asked if there was something I could do to help and she said no if it happened again she would come back. Dr Cook is aware
== END 2025-09-28 14:17 | disposition left against medical advice (07) ==
PROVIDERS: PCP Family Medicine
DX: Z53.21 Procedure and treatment not carried out due to patient leaving prior to being seen by health care provider (principal)
CPT/HCPCS: 80053; 83690; 84703; 85025; A4216